=== PATIENT | female | born 1950 | race Caucasian/White ===

== ENCOUNTER → 2017-02-15 | Outpatient (CLI) | payer OTHER ==
[2016-02-17 13:09] VITALS: BP 127/72; PULSE 85
[~2017-02-15] MED LIST: ACET-1138 PO; CALC600T9 PO; CYAN100020 PO; FLUT0.15 NAE; FMR25 PO; HYDR25TA4 PO; INSU70IN2 SC; INSUINJ7 SC; METF-384 PO; OXYSR10 PO; PRAV20TA PO; PREG1CAP70 PO; PRVHFAIN INH; RXC5 PO; SERT50TA PO; SNK PO; TRAZ50TA35 PO; WARF5TAB90 PO; WARF7.5T PO
[2017-02-15 13:15] VITALS: BP 121/71; PULSE 78; TEMP 36.9; O2SAT 93
--- NOTE | 2017-02-15 15:24 | Radiation Oncology Follow-Up ---
Radiation Oncology Follow-Up Date of Visit Feb 15, 2017. Reason For Visit Annual follow-up Radiation Completion Date 07/21/15 Diagnosis (1) Intraductal carcinoma of left breast Status: Resolved Onset Date: 02/25/2015 Stage: 0 Permanent Comment: Abnormal left breast mammogram 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 Estrogen receptor positive and progesterone receptor positive Status post lumpectomy with sentinel lymph node biopsy stage [id number] 2014 Status post completion of radiation therapy 07/21/2015 received 6640 cGy Last Edited By: Jayleen Bates on Jul 25, 2015 17:54 History of Present Illness 67-year-old lady is referred to our Department after undergoing lumpectomy and sentinel node procedure for what ultimately was diagnosed as 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 In early summer of this year, she underwent a bilateral mammography. An area was seen in her left breast that on comparison with previous scan were not noted. These changes were fine pleomorphic calcifications. They were found in the upper outer quadrant. The patient had a repeat mammography for confirmation. She went on to a needle core biopsy, which did return DCIS. She finally went to an excision of the residual tumor with wire-guided localization. At that procedure, left sentinel nodes were sampled. The pathology dated returned DCIS that noted grade II nuclear grade with the solid and comedo changes. The tumor was felt to be 2.1 cm in maximal dimension. The margins of DCIS were negative. There was a closed margin, but negative. The patient's tumor did exhibit hormonal sensitivity. Final stage was Tis. The patient has done well from her healing and is now referred for postoperative breast-conserving radiation. The patient is also scheduled to see medical oncology later this week in view of her diagnosis and hormonal sensitivity. In talking with the patient, she does have a family history of breast cancer in her mother who was in her 80s when diagnosed and an aunt also in her 80s. The patient does have other medical problems, see below. These problems include insulin-dependent diabetes. She underwent CT simulation. It was felt that she would be treated best in the prone position. Interim History She's been doing well over this past year. She denies any changes to her breast. She has noted no masses or tenderness and no change of the axilla. She 's had no swelling of her arm. She is up-to-date on mammography. She had a mammogram 04/06/2016. The left breast showed post therapeutic changes from DCIS status post lumpectomy April 2015. Findings are probably benign. Short interval follow-up was recommended in 6 months. Right breast was negative , no evidence of malignancy. Normal interval follow-up is recommended in 12 months. Recheck mammography is scheduled for April 06. Allergies Coded Allergies: Esomeprazole (Verified Allergy, Severe, SOB, 03/08/16) Alendronate (Verified Allergy, Unknown, hives, 03/08/16) Home Medications Scheduled Acetaminophen (Tylenol Extra Strength), 1,000 MG PO Q8 Calcium Carbonate-Vitamin D (Calcium + D), 1 TAB PO BID Cyanocobalamin (Vitamin B12), 1 TAB PO QAM Fluticasone Propionate (Nasal) (Flonase Allergy Relief), 2 SPRAY SWETA QPM Hydrochlorothiazide (Hctz), 1 TAB PO QAM Insulin Isophan/Regular (Novolin 70/30), 30 UNITS SC QDB Insulin Isophan/Regular (Novolin 70/30), 28 UNITS SC QDD Insulin Regular (Novolin-R), 28 SC QDB Insulin Regular (Novolin-R), 50 UNITS SC QDL Insulin Regular (Novolin-R), 64 UNITS SC QDD Insulin Regular (Novolin-R), 8 UNITS SC DIRECTED Letrozole (Femara), 2.5 MG PO DAILY Metformin Hcl (Glucophage), 1,000 MG PO BID Oxycodone HCl (Oxycontin), 10 MG PO Q12 Pravastatin (Pravachol ), 20 MG PO HS Pregabalin (Lyrica), 150 MG PO BID Senna (Senna Lax), 17.2 MG PO HS Sertraline (Zoloft), 1 TAB PO QAM Trazodone Hcl (Trazodone), 50 MG PO HS Warfarin Sodium (Coumadin), 1 TAB PO DAILY Warfarin Sodium (Coumadin), 1 TAB PO DAILY Scheduled PRN Albuterol (Ventolin Hfa), 2 PUFFS INH QID PRN for SOB/Wheezing Oxycodone HCl (Oxycodone HCl), 5-10 MG PO Q4H PRN for Pain Review of Systems Gastrointestinal: Symptoms: WNL GI Comments: alternates between diarrhea and constipation Oral: Symptoms: No Problems Respiratory: Symptoms: WNL, SOB With Exertion Other Respiratory: " I have COPD " Urinary: Symptoms: WNL, Frequency Comments: nocturia 2 - 3 times Skin: Symptoms: No Problems Other Skin Symptoms: dryskin left breast per patient Breast: Right Upper Arm Measurement: 28.5 Right Mid Arm Measurement: 24.5 Right Wrist Measurement: 16.5 Left Upper Arm Measurement: 29.5 Left Mid Arm Measurement: 24.5 Left Wrist Measurement: 16.3 Arm Dominence: Right Patient Cosmetic Evaluation: Good Staff Cosmetic Evalaluation: Fair Physical Exam Vital Signs Date Time Temp Pulse Resp B/P (MAP) Pulse Ox O2 Delivery O2 Flow Rate FiO2 02/15/17 13:15 36.9 78 16 121/71 93 Pain: Side: Bilateral Patient Pain Scale: 0 - 10 Initial Pain Intensity: 0.0 Fatigue: None General Appearance: no apparent distress Eyes: normal inspection, EOMI ENT: normal ENT inspection, hearing grossly normal Neck: no adenopathy, thyroid normal Respiratory/Chest: lungs clear, no respiratory distress, no accessory muscle use Breast: Breast examination reveals well-healed incisions of the left breast. There are no masses or tenderness and no axillary adenopathy. There are no skin retractions or nipple changes. Using the Otego score cosmesis has an excellent outcome. The right breast showed no masses or tenderness and no axillary adenopathy. Cardiovascular: regular rate, rhythm, no gallop, no murmur Abdomen: non tender, soft Extremities: no pedal edema Neurologic/Psychiatric: no motor/sensory deficits, alert, normal mood/affect Skin: warm/dry Additional Studies Mammography as reviewed above. Assessment & Plan Plan: Continue with scheduled mammography. She'll have a mammogram of the left breast on April 06. She'll continue the annual mammography of the right breast. Continue follow-up with Dr. Buffy aCstro and her primary care physician. We asked her to return to our office in 1 year. She may call if she has any questions or concerns in the interim. Total Time In Follow-Up I spent 15 minutes speaking to the patient performing examination. I spent 15 minutes reviewing information and completeness note. Copy To Buffy Castro MD; Alfa Jaramillo M.D.
== END | disposition home or self-care (01) ==
LOC: C.ONC 12:57
PROVIDERS: ATTEND Physician Assistant Medical
DX: Z08 Encounter for follow-up examination after completed treatment for malignant neoplasm (principal); Z92.3 Personal history of irradiation; Z85.3 Personal history of malignant neoplasm of breast

== ENCOUNTER 2020-01-12 17:45 | Inpatient (IN) ==
[2020-01-12 18:26] LABS: Basophils # (auto) 0.04 K/uL (0-0.2); Basophils % (auto) 0.4 %; Eosinophils # (auto) 0.17 K/uL (0-0.5); Eosinophils % (auto) 1.6 %; Hematocrit (blood only) 40.8 % (37-47); Hemoglobin 13.6 g/dL (12.0-16.0); Immature Granulocytes # (auto) 0.03 K/uL (0.00-0.02); Immature Granulocytes % (auto) 0.3 %; Lymphocytes # (auto) 1.64 K/uL (1.2-3.4); Lymphocytes % (auto) 15.1 %; Mean Corpuscular Hemoglobin 30.3 pg (25-34); Mean Corpuscular Hgb Conc 33.3 g/dL (32-36); Mean Corpuscular Volume 90.9 fL (80-100); Mean Platelet Volume 11.5 fL (7.4-10.4); Monocytes # (auto) 0.79 K/uL (0.11-0.59); Monocytes % (auto) 7.3 %; Neutrophils # (auto) 8.18 K/uL (1.4-6.5); Neutrophils % (auto) 75.3 %; Platelet Count 259 K/uL (130-400); RDW Coefficient of Variation 13.4 % (11.5-14.5); RDW Standard Deviation 44.4 fL (36.4-46.3); Red Blood Count 4.49 M/uL (4.2-5.4); White Blood Count 10.85 K/uL (4.8-10.8)
[2020-01-12] MEDS ORDERED: ACETAMINOPHEN 1,000 MG/100 ML VIAL IV STA (18:32)
[2020-01-12 18:37] LABS: Albumin Level 3.4 gm/dl (3.4-5.0); Aspartate Aminotransferase 86 U/L (15-37); BUN Creatinine Ratio 15.9 (10-20); Blood Urea Nitrogen 16 mg/dl (7-18); Calcium 9.8 mg/dl (8.5-10.1); Carbon Dioxide 28 mmol/L (21-32); Chloride 98 mmol/L (98-107); Creatinine Clr Calc Pharmacy 55.7 ml/min; Est GFR (African American) 63.8; Glucose 134 mg/dl (70-99); Potassium 4.1 mmol/L (3.5-5.1); Sodium 135 mmol/L (136-145)
[2020-01-12 18:38] LABS: INR 1.6 (0.9-1.1); Prothrombin Time 16.7 Seconds (9.0-12.0)
[2020-01-12 18:42] LABS: Alanine Aminotransferase 69 U/L (12-78); Albumin Globulin Ratio 0.8 (0.9-2); Alkaline Phosphatase 94 U/L (45-117); Bilirubin,Total 0.6 mg/dl (0.2-1); Globulin 4.5 gm/dl (2.5-4.0); Total Protein 7.9 gm/dl (6.4-8.2); Troponin I < 0.015 ng/ml (0-0.045)
--- NOTE | 2020-01-12 18:48 | Emergency Department Note ---
Impression & Plan Fall, Brittany-prosthetic fracture around prosthetic knee, Fracture of tibia and fibula, Chest pain ED Provider Note Provider: Tyler Mei MD DATE OF SERVICE: 01/12/2020 CHIEF COMPLAINT: Fall, ankle pain HISTORY OF PRESENT ILLNESS: Patient is a 69-year-old female with a history of atrial fibrillation on Coumadin, COPD, diabetes, presented via ambulance today after a fall. Patient states that she had little chest pain or 1:00 and took a nitro. Chest pain lasted 30 minutes and resolved. Patient states this is not abnormal for her and is not exertional. Patient states this happens frequently and did not concern her. Patient does states that shortly after that her right leg and knee gave out she fell to the floor striking her right knee and left ankle on the floor. States she was on the floor for approximately half an hour to an hour. She denies any chest pain says the episode earlier. Denies striking her head. Denies neck pain. Patient reports fairly significant right posterior knee pain and pain of left ankle. Denies any new numbness in her lower extremities. Denies any bleeding. Denies chest pain or difficulty breathing now again. Patient states she is not worried about her heart at this time. REVIEW OF SYSTEMS: A total of 10 review of systems was obtained and negative except as stated above in the HPI. PAST MEDICAL HISTORY: As noted above MEDICATIONS: Reviewed and significantly include insulin, metformin, Coumadin SOCIAL HISTORY: Lives at home with . PHYSICAL EXAM: GENERAL: alert and oriented in no acute distress on stretcher Head: normocephalic and atraumatic EYES: No injection, discharge or icterus. PERRL NECK: Trachea midline. Supple. ENT: Mucous membranes pink and moist. LUNGS: Airway patent. No retractions. Breath sounds clear HEART: Regular rate and irregular rhythm. No chest wall tenderness ABDOMEN: Soft and non-tender, without guarding or rebound. 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 Patient has obvious right distal lower extremity deformity just proximal to the ankle with crepitus appreciated on palpation of the area. No open wound. Neuro intact in the bilateral feet. Tenderness of the right posterior knee predominantly in pain with extension. NEUROLOGICAL: No focal deficits. No aphasia. No facial droop or slurred speech. Normal strength and tone in the extremities. Sensation to gross touch normal. Ambulatory. EKG: Atrial fibrillation 94 bpm. No PVCs. No acute ST segment elevation is noted however some lateral T wave flattening/inversion. In comparison to March 082015 known atrial fibrillation and with lateral T wave flattening/inversions are new CONTINUOUS CARDIAC MONITORING: was ordered and showed a heart rate of 99 bpm in atrial fibrillation GCS 15. HOSPITAL COURSE: 1826 Patient was first seen and H&P performed. 1934 Patient reassessed and updated. Patient was updated with the findings. [address] Rondon of orthopedics [address] Jung of the hospitalist service. PROCEDURE: splint placement Indications for procedure: Left ankle fracture Description of the procedure: Short leg posterior with stirrups fiberglass splint was placed on the patient's left lower extremity. Neurovascular status was intact after placement of the splint. PATIENT CONDITION AFTER PROCEDURE: good Patient's laboratory studies and imaging reviewed. Differential includes Cardiac ischemia, aortic dissection, pulmonary embolism, pneumothorax, pneumonia, pericarditis, myocarditis, esophageal rupture, GERD, cholecystitis, pancreatitis, musculoskeletal, fracture, dislocation, compartment syndrome as well as other pathologies. IMPRESSION/MEDICAL DECISION MAKING: Patient presents after an episode of chest pain earlier that seems incidental to the primary reason for her visit the fall. In atrial fibrillation appears generally rate controlled. No evidence of heart failure. Initial troponin sent and the patient is not having active chest pain now. There is some lateral ST flattening noted on today's cardiogram but is been several years since a prior. At the patient requires admission given the lower extremity injuries this can be trended and monitored. Troponin here initially is negative. Nonspecific leukocytosis of 10.85. Blood pressures have been intermittently with systolics in the 90s and 100s here predominantly. Patient is asymptomatic. Atrial fibrillation rate in the 80s 90s and 100s as well. Do not believe she has suffered internal bleeding or is septic. Main complaint related the following is some right knee pain and significant pain and deformity to the left ankle. Obvious fracture here. X-rays of the ankle and the right knee were obtained. Prior right knee replacement by the [facility] several decades ago. Patient is difficulty extending the right leg and unable to walk on the left foot due to the fracture. Do not believe any additional imaging beyond this today or imaging of the head. X-rays of the left ankle show evidence of a bimalleolar fracture with some lateral displacement. The right knee x-ray shows evidence of distal femur stress fracture. Given these injuries affecting both lower extremities and her lack of ability ambulate with it as well as pain feel the patient requires admission. Left lower leg was splinted as above. Neurovascularly intact afterwards. Discussed with the hospitalist as well as orthopedics. Receives fentanyl for pain in addition to IV Tylenol. DIAGNOSIS: Fall, chest pain, left ankle fracture, right knee pain DISPOSITION: Hospitalist will evaluate Patient was agreeable with this plan. Past Med/Surg History Social History Feels Safe at Home: Yes Smoking Status: Former smoker Allergies Allergies Allergy/AdvReac Type Severity Reaction Status Date / Time esomeprazole Allergy Severe SOB Verified 01/12/20 21:16 alendronate sodium Allergy Unknown hives Verified 01/12/20 21:16 Home Meds Home Medications Medication Instructions Recorded Confirmed acetaminophen [Tylenol Extra 1,000 mg PO Q8H PRN 01/12/20 01/12/20 Strength] albuterol sulfate [Ventolin HFA] 2 puff INHALATION QID PRN 01/12/20 01/12/20 digoxin 125 mcg PO DAILY 01/12/20 01/12/20 duloxetine 30 mg PO DAILY 01/12/20 01/12/20 fluticasone propionate [Flonase 2 spray INTRANASAL DAILY 01/12/20 01/12/20 Allergy Relief] hydrochlorothiazide 25 mg PO DAILY 01/12/20 01/12/20 insulin aspart U-100 [Novolog 0 unit SUBCUT CONTINOUS 01/12/20 01/12/20 U-100 Insulin aspart] isosorbide mononitrate 30 mg PO DAILY 01/12/20 01/12/20 letrozole 2.5 mg PO DAILY 01/12/20 01/12/20 lisinopril 5 mg PO DAILY 01/12/20 01/12/20 metformin 1,000 mg PO BIDM 01/12/20 01/12/20 metoprolol succinate 25 mg PO QAM 01/12/20 01/12/20 metoprolol succinate 50 mg PO QAM 01/12/20 01/12/20 nitroglycerin [Nitrostat] 0.3 mg SUBLINGUAL .PRN/UD PRN 01/12/20 01/12/20 pravastatin 20 mg PO QPM 01/12/20 01/12/20 pregabalin 150 mg PO BID 01/12/20 01/12/20 semaglutide [Ozempic] 1 mg SUBCUT WK 01/12/20 01/12/20 sennosides 8.6 mg PO DAILY PRN 01/12/20 01/12/20 sertraline 50 mg PO DAILY 01/12/20 01/12/20 trazodone 50 mg PO HS 01/12/20 01/12/20 warfarin 5 mg PO QPM 01/12/20 01/12/20 Results & Data (ED) Vital Signs Vital Signs - 24 hr 01/12/20 17:58 01/12/20 18:00 01/12/20 18:02 Temperature 37.0 C Temperature Source Oral Pulse Rate 90 94 H 88 Pulse Rate from SpO2 Sensor 93 H 86 Respiratory Rate 18 15 17 Blood Pressure 95/70 L 112/67 Blood Pressure Mean 78 75 Pulse Oximetry 98 96 95 Oxygen Delivery Method Room Air Sepsis Recent Fever Within 48 Hours No Sepsis New/Unexplained Change in Mental Status No Sepsis Action Taken by Nursing No Action Required 01/12/20 18:20 01/12/20 18:30 01/12/20 18:31 Temperature Temperature Source Pulse Rate 98 H 96 H Pulse Rate from SpO2 Sensor 94 H 94 H Respiratory Rate 20 19 Blood Pressure 105/71 Blood Pressure Mean 89 Pulse Oximetry 98 96 97 Oxygen Delivery Method Room Air Sepsis Recent Fever Within 48 Hours Sepsis New/Unexplained Change in Mental Status Sepsis Action Taken by Nursing 01/12/20 18:32 01/12/20 19:00 01/12/20 19:01 Temperature Temperature Source Pulse Rate 102 H 98 H 95 H Pulse Rate from SpO2 Sensor 98 H 102 H 90 Respiratory Rate 21 16 15 Blood Pressure 105/76 Blood Pressure Mean 86 Pulse Oximetry 97 95 95 Oxygen Delivery Method Sepsis Recent Fever Within 48 Hours Sepsis New/Unexplained Change in Mental Status Sepsis Action Taken by Nursing 01/12/20 19:30 01/12/20 19:31 01/12/20 20:00 Temperature Temperature Source Pulse Rate 88 103 H 104 H Pulse Rate from SpO2 Sensor 83 101 H 103 H Respiratory Rate 15 22 16 Blood Pressure 93/67 L 85/62 L Blood Pressure Mean 74 63 Pulse Oximetry 95 95 95 Oxygen Delivery Method Sepsis Recent Fever Within 48 Hours Sepsis New/Unexplained Change in Mental Status Sepsis Action Taken by Nursing Laboratory Data Result diagrams: 01/12/20 17:20 01/12/20 17:20 Lab Results 01/12/20 01/12/20 01/12/20 Range/Units 17:20 17:20 17:20 WBC 10.85 H (4.8-10.8) K/uL RBC 4.49 (4.2-5.4) M/uL Hgb 13.6 (12.0-16.0) g/dL Hct 40.8 (37-47) % MCV 90.9 (80-100) fL MCH 30.3 (25-34) pg MCHC 33.3 (32-36) g/dL RDW Std Deviation 44.4 (36.4-46.3) fL RDW Coeff of Katrin 13.4 (11.5-14.5) % Plt Count 259 (130-400) K/uL MPV 11.5 H (7.4-10.4) fL Immature Gran % (Auto) 0.3 % Neut % (Auto) 75.3 % Lymph % (Auto) 15.1 % [place] % (Auto) 7.3 % Eos % (Auto) 1.6 % Baso % (Auto) 0.4 % Immature Gran # (Auto) 0.03 H (0.00-0.02) K/uL Neut # (Auto) 8.18 H (1.4-6.5) K/uL Lymph # (Auto) 1.64 (1.2-3.4) K/uL [place] # (Auto) 0.79 H (0.11-0.59) K/uL Eos # (Auto) 0.17 (0-0.5) K/uL Baso # (Auto) 0.04 (0-0.2) K/uL PT 16.7 H (9.0-12.0) Seconds INR 1.6 H (0.9-1.1) APTT (21.0-31.0) Seconds PTT Ratio Sodium 135 L (136-145) mmol/L Potassium 4.1 (3.5-5.1) mmol/L Chloride 98 (98-107) mmol/L Carbon Dioxide 28 (21-32) mmol/L Anion Gap 9.0 (3-11) BUN 16 (7-18) mg/dl Creatinine 1.03 (0.6-1.2) mg/dl Est Cr Clr Drug Dosing 55.7 ml/min Est GFR ( Amer) 63.8 Est GFR (Non-Af Amer) 55.0 BUN/Creatinine Ratio 15.9 (10-20) Glucose 134 H (70-99) mg/dl Lactate (0.4-2.0) mmol/L Calcium 9.8 (8.5-10.1) mg/dl Magnesium (1.8-2.4) mg/dl Total Bilirubin 0.6 (0.2-1) mg/dl AST 86 H (15-37) U/L ALT 69 (12-78) U/L Alkaline Phosphatase 94 (45-117) U/L Total Creatine Kinase (26-192) U/L Troponin I < 0.015 (0-0.045) ng/ml Total Protein 7.9 (6.4-8.2) gm/dl Albumin 3.4 (3.4-5.0) gm/dl Globulin 4.5 H (2.5-4.0) gm/dl Albumin/Globulin Ratio 0.8 L (0.9-2) Lipase (73-393) U/L TSH (0.300-4.500) uIu/ml 01/12/20 01/12/20 01/12/20 Range/Units 17:20 20:39 20:39 WBC (4.8-10.8) K/uL RBC (4.2-5.4) M/uL Hgb (12.0-16.0) g/dL Hct (37-47) % MCV (80-100) fL MCH (25-34) pg MCHC (32-36) g/dL RDW Std Deviation (36.4-46.3) fL RDW Coeff of Katrin (11.5-14.5) % Plt Count (130-400) K/uL MPV (7.4-10.4) fL Immature Gran % (Auto) % Neut % (Auto) % Lymph % (Auto) % [place] % (Auto) % Eos % (Auto) % Baso % (Auto) % Immature Gran # (Auto) (0.00-0.02) K/uL Neut # (Auto) (1.4-6.5) K/uL Lymph # (Auto) (1.2-3.4) K/uL [place] # (Auto) (0.11-0.59) K/uL Eos # (Auto) (0-0.5) K/uL Baso # (Auto) (0-0.2) K/uL PT (9.0-12.0) Seconds INR (0.9-1.1) APTT 30.1 (21.0-31.0) Seconds PTT Ratio 1.1 Sodium (136-145) mmol/L Potassium (3.5-5.1) mmol/L Chloride (98-107) mmol/L Carbon Dioxide (21-32) mmol/L Anion Gap (3-11) BUN (7-18) mg/dl Creatinine (0.6-1.2) mg/dl Est Cr Clr Drug Dosing ml/min Est GFR ( Amer) Est GFR (Non-Af Amer) BUN/Creatinine Ratio (10-20) Glucose (70-99) mg/dl Lactate (0.4-2.0) mmol/L Calcium (8.5-10.1) mg/dl Magnesium 1.6 L (1.8-2.4) mg/dl Total Bilirubin (0.2-1) mg/dl AST (15-37) U/L ALT (12-78) U/L Alkaline Phosphatase (45-117) U/L Total Creatine Kinase 42 (26-192) U/L Troponin I < 0.015 (0-0.045) ng/ml Total Protein (6.4-8.2) gm/dl Albumin (3.4-5.0) gm/dl Globulin (2.5-4.0) gm/dl Albumin/Globulin Ratio (0.9-2) Lipase 228 (73-393) U/L TSH 3.480 (0.300-4.500) uIu/ml 01/12/20 Range/Units 20:44 WBC (4.8-10.8) K/uL RBC (4.2-5.4) M/uL Hgb (12.0-16.0) g/dL Hct (37-47) % MCV (80-100) fL MCH (25-34) pg MCHC (32-36) g/dL RDW Std Deviation (36.4-46.3) fL RDW Coeff of Katrin (11.5-14.5) % Plt Count (130-400) K/uL MPV (7.4-10.4) fL Immature Gran % (Auto) % Neut % (Auto) % Lymph % (Auto) % [place] % (Auto) % Eos % (Auto) % Baso % (Auto) % Immature Gran # (Auto) (0.00-0.02) K/uL Neut # (Auto) (1.4-6.5) K/uL Lymph # (Auto) (1.2-3.4) K/uL [place] # (Auto) (0.11-0.59) K/uL Eos # (Auto) (0-0.5) K/uL Baso # (Auto) (0-0.2) K/uL PT (9.0-12.0) Seconds INR (0.9-1.1) APTT (21.0-31.0) Seconds PTT Ratio Sodium (136-145) mmol/L Potassium (3.5-5.1) mmol/L Chloride (98-107) mmol/L Carbon Dioxide (21-32) mmol/L Anion Gap (3-11) BUN (7-18) mg/dl Creatinine (0.6-1.2) mg/dl Est Cr Clr Drug Dosing ml/min Est GFR ( Amer) Est GFR (Non-Af Amer) BUN/Creatinine Ratio (10-20) Glucose (70-99) mg/dl Lactate 3.0 H* (0.4-2.0) mmol/L Calcium (8.5-10.1) mg/dl Magnesium (1.8-2.4) mg/dl Total Bilirubin (0.2-1) mg/dl AST (15-37) U/L ALT (12-78) U/L Alkaline Phosphatase (45-117) U/L Total Creatine Kinase (26-192) U/L Troponin I (0-0.045) ng/ml Total Protein (6.4-8.2) gm/dl Albumin (3.4-5.0) gm/dl Globulin (2.5-4.0) gm/dl Albumin/Globulin Ratio (0.9-2) Lipase (73-393) U/L TSH (0.300-4.500) uIu/ml Administered Medications Discontinued Medications Fentanyl Citrate (Fentanyl Citrate) 25 mcg IV NOW STA Stop: 01/12/20 19:43 Last Admin: 01/12/20 19:51 Dose: 25 mcg Documented by: [id number] Acetaminophen (Ofirmev) 1,000 mg in 100 mls @ 400 mls/hr IV NOW STA Stop: 01/12/20 18:46 Last Infusion: 01/12/20 18:56 Dose: 0 mls/hr Documented by: [id number] Admin: 01/12/20 18:36 Dose: 400 mls/hr Documented by: [id number] Sodium Chloride (Nss) 500 mls @ 500 mls/hr IV .Q1H ONE Stop: 01/12/20 20:58 Last Admin: 01/12/20 20:18 Dose: 500 mls/hr Documented by: [id number] Discharge Plan Visit Data Chief Complaint: Fall Stated Complaint: FALL, ANKLE PAIN ED Provider: Tyler Mei Discharge Problem: Fall, Brittany-prosthetic fracture around prosthetic knee, Fracture of tibia and fibula, Chest pain Patient Disposition: Admitted As Inpatient Forms Stand Alone Forms: [facility] Prescriptions Prescriptions: No Action pregabalin 150 mg capsule 150 mg PO BID RF: 0 letrozole 2.5 mg tablet 2.5 mg PO DAILY RF: 0 pravastatin 20 mg tablet 20 mg PO QPM RF: 0 insulin aspart U-100 [Novolog U-100 Insulin aspart] 100 unit/mL solution 0 unit subcut CONTINOUS RF: 0 digoxin 125 mcg (0.125 mg) tablet 125 mcg PO DAILY RF: 0 hydrochlorothiazide 25 mg tablet 25 mg PO DAILY RF: 0 fluticasone propionate [Flonase Allergy Relief] 50 mcg/actuation Cascade,Suspension 2 spray INTRANASAL DAILY RF: 0 isosorbide mononitrate 30 mg tablet extended release 24 hr 30 mg PO DAILY RF: 0 metformin 1,000 mg tablet 1,000 mg PO BIDM RF: 0 Ozempic 1 mg/dose (2 mg/1.5 mL) Pen Injector 1 mg SUBCUT WK RF: 0 metoprolol succinate 50 mg tablet extended release 24 hr 50 mg PO QAM RF: 0 metoprolol succinate 25 mg tablet extended release 24 hr 25 mg PO QAM RF: 0 trazodone 50 mg Tablet 50 mg PO HS RF: 0 warfarin 5 mg tablet 5 mg PO QPM RF: 0 duloxetine 30 mg capsule,delayed release(DR/EC) 30 mg PO DAILY RF: 0 nitroglycerin [Nitrostat] 0.3 mg Tablet, Sublingual 0.3 mg sublingual .PRN/UD PRN (Reason: Chest Pain) RF: 0 albuterol sulfate [Ventolin HFA] 90 mcg/actuation Hfa Aerosol Inhaler 2 puff INHALATION QID PRN (Reason: Shortness Of Breath Or Wheezing) RF: 0 sennosides 8.6 mg Tablet 8.6 mg PO DAILY PRN (Reason: Constipation) RF: 0 lisinopril 5 mg Tablet 5 mg PO DAILY RF: 0 sertraline 50 mg Tablet 50 mg PO DAILY RF: 0 acetaminophen [Tylenol Extra Strength] 500 mg Tablet 1,000 mg PO Q8H PRN (Reason: Pain) RF: 0 Referrals Referrals: Alfa Jaramillo MD [Primary Care Provider] - Discharge Problem: Fall Qualifiers: Encounter type: initial encounter Qualified Code(s): W19.XXXA - Unspecified fall, initial encounter Brittany-prosthetic fracture around prosthetic knee Qualifiers: Encounter type: initial encounter Laterality: right Qualified Code(s): M97.11XA - Periprosthetic fracture around internal prosthetic right knee joint, initial encounter Fracture of tibia and fibula Qualifiers: Encounter type: initial encounter Fracture type: closed Laterality: left Qualified Code(s): S82.202A - Unspecified fracture of shaft of left tibia, initial encounter for closed fracture Chest pain Qualifiers: Chest pain type: unspecified Qualified Code(s): R07.9 - Chest pain, unspecified
--- NOTE | 2020-01-12 19:25 | XRay Report ---
XR ankle LT min 3V routine, XR tibia fibula LT 2V HISTORY: 69 years-old Female fall acute left ankle/tibia and fibula pain status post fall COMPARISON: None TECHNIQUE: 3 views of the left ankle, 2 views of the left tibia and fibula FINDINGS: ANKLE: There is an acute comminuted fracture of the distal metadiaphyseal fibula with a few degrees of apex medial angulation. Fracture fragments are displaced several millimeters medially and posteriorly. Add itionally, there is an acute comminuted and displaced medial malleolar fracture with the proximal tib ia displaced 7 mm in relation to the distal malleolus fracture fragment. There is pathologic widening of the distal tibiofibular syndesmosis with widening of the medial aspect of the tibiotalar joint. M oderate soft tissue swelling. Demineralized appearance the bones with multifocal osteoarthritis. Gypsy rial calcifications. TIBIA/FIBULA: Distal fractures as above. The proximal mid portions of the tibia and fibula are intact. IMPRESSION: 1. Acute, comminuted and displaced fractures of the distal tibia and fibula as above. 2. Widening of the distal tibial fibular syndesmosis suggests concomitant ligamentous injury. 3. No acute fracture of the proximal or mid tibia or fibula. ACT 112: Negative or not required by law. The above report was generated using voice recognition software. It may contain grammatical, syntax o r spelling errors. Electronically signed by: Chuy Elizabeth M.D. 01/12/2020 7:24 PM
--- NOTE | 2020-01-12 19:27 | XRay Report ---
XR knee RT 4V HISTORY: 69 years-old Female fall acute right knee pain status post fall COMPARISON: Right knee radiographs 05/11/2016 TECHNIQUE: 4 views of the right knee FINDINGS: Right knee total joint arthroplasty and patella resurfacing changes. Dystrophic calcifications projec t over the intercondylar distribution and suprapatellar regions. Arterial calcifications. Mild circum ferential soft tissue swelling. There is a subtle acute nondisplaced periprosthetic fracture involvin g the lateral distal metadiaphyseal aspect of the femur with fracture extending proximally approximat leroy 10 cm from the lateral femoral condyle. IMPRESSION: Right knee total joint arthroplasty with an acute periprosthetic fracture of the distal f emur as above. ACT 112: Negative or not required by law. The above report was generated using voice recognition software. It may contain grammatical, syntax o r spelling errors. Electronically signed by: Chuy Elizabeth M.D. 01/12/2020 7:26 PM
--- NOTE | 2020-01-12 19:35 | XRay Report ---
XR chest 1V portable HISTORY: 69 years-old Female cp acute chest pain status post fall COMPARISON: Chest radiograph 6 03/08/2016 TECHNIQUE: Portable AP view of the chest FINDINGS: Cardiac silhouette is moderately enlarged. Dense mitral annular calcifications. Calcified plaque of t he thoracic aortic arch and tracheobronchial tree. No pneumothorax, pleural effusion, airspace consol idation or overt pulmonary edema. Bones of the chest appear grossly intact. Degenerative changes of t he shoulders and spine. Extensive cervical spinal fusion hardware. IMPRESSION: Cardiomegaly without acute process. ACT 112: Negative or not required by law. The above report was generated using voice recognition software. It may contain grammatical, syntax o r spelling errors. Electronically signed by: Chuy Elizabeth M.D. 01/12/2020 7:34 PM
[2020-01-12] MEDS ORDERED: fentaNYL citrate 100 MCG/2 ML VIAL IV STA (19:42)
[2020-01-12] MEDS ORDERED: SODIUM CHLORIDE 0.9% 500 ML IV ONE (19:59)
--- NOTE | 2020-01-12 20:48 | History & Physical Report ---
Date of Service January 12, 2020 Assessment & Plan (1) Chest discomfort: Likely from A. fib, mild heart rate elevation secondary to hypovolemia, mild clinical dehydration Recurrent LE/DVT INR subtherapeutic ro ACS given chest discomfort relieved with nitroglycerin description hx CAD as per records L ankle fracture sp status post closed reduction at the ER Right knee/periprosthetic fracture HTN, BP on the lower side hyperlipidemia on statin Rx COPD, stable breast cancer left status post surgery, radiation currently on Femara Rx DM 2 on insulin pump, BSG is currently controlled, suboptimal control on the basis of hemoglobin A1c of 13.07 July 2019 past tobacco abuse PCU IVF Extra digoxin for rate control now given low BP Decrease maintenance beta-adis dose until blood pressure improved. Hold home diuretics for now Follow troponin TTE, Cardiology consult RE transient chest pain, preop eval IV heparin for thromboembolic prophylaxis given history of recurrent DVT while Coumadin on hold while INR subtherapeutic Orthopedics consult RE left ankle fracture, right knee/periprosthetic fracture (ER provider already in touch with Dr. Rondon.) Final medical evaluation pending Cardio input. Pharmacy glycemic control consult, update hemoglobin A1c DVT prophylaxis. IV heparin Full code Case discussed with Dr. Rondon who is in agreement with plan of care. Text document was generated using [employer] voice recognition software. It may contain grammatical or spelling errors. Kindly contact undersigned for clarification of any documentation item in question. History of Present Illness , Chief Complaint: Fall, left ankle pain Primary Care Provider: Alfa Jaramillo MD History obtained from patient and records. Medical history significant for CAD as per records, A. fib/recurrent LE DVT on Coumadin, hypertension, hyperlipidemia, COPD, breast cancer status post surgery currently on Femara Rx, DM 2 on insulin pump, past tobacco abuse. Last confinement 2015 under Orthopedics service for elective right total knee arthroplasty. Patient had just finished washing dishes this afternoon when she experienced fluttering discomfort on her chest resolved with nitroglycerin intake. No unusual shortness of breath. Last attack was about last month. Not feeling well the last few days, appetite not too good. Denies cough, muscle aches, flulike symptoms, diarrhea, dysuria, known sick contacts. Patient went out of the house to feed some chickens. She felt her right knee gave out causing her to fall down. Patient experienced achy right knee and left ankle pain. Unable to get up. No chest pain, S OB, head trauma, LOC. At the ER, closed reduction done on left distal tibia-fibula/ankle bony injury. Patient currently comfortable. Medical History as above December 2018 Lexiscan nuclear stress test possible small area of reversible ischemia involving the left lateral wall. 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, lives with Baseline Functionality : Still able to do housework at home without rest/exertional chest pain, S OB prior to injury Allergies Allergy/AdvReac Type Severity Reaction Status Date / Time esomeprazole Allergy Severe SOB Verified 01/12/20 21:16 alendronate sodium Allergy Unknown hives Verified 01/12/20 21:16 Home Medications Home Medications Medication Instructions Recorded Confirmed Type acetaminophen [Tylenol Extra 1,000 mg PO Q8H PRN 01/12/20 01/12/20 History Strength] albuterol sulfate [Ventolin HFA] 2 puff INHALATION QID PRN 01/12/20 01/12/20 History digoxin 125 mcg PO DAILY 01/12/20 01/12/20 History duloxetine 30 mg PO DAILY 01/12/20 01/12/20 History fluticasone propionate [Flonase 2 spray INTRANASAL DAILY 01/12/20 01/12/20 History Allergy Relief] hydrochlorothiazide 25 mg PO DAILY 01/12/20 01/12/20 History insulin aspart U-100 [Novolog 0 unit SUBCUT CONTINOUS 01/12/20 01/12/20 History U-100 Insulin aspart] isosorbide mononitrate 30 mg PO DAILY 01/12/20 01/12/20 History letrozole 2.5 mg PO DAILY 01/12/20 01/12/20 History lisinopril 5 mg PO DAILY 01/12/20 01/12/20 History metformin 1,000 mg PO BIDM 01/12/20 01/12/20 History metoprolol succinate 25 mg PO QAM 01/12/20 01/12/20 History metoprolol succinate 50 mg PO QAM 01/12/20 01/12/20 History nitroglycerin [Nitrostat] 0.3 mg SUBLINGUAL .PRN/UD PRN 01/12/20 01/12/20 History pravastatin 20 mg PO QPM 01/12/20 01/12/20 History pregabalin 150 mg PO BID 01/12/20 01/12/20 History semaglutide [Ozempic] 1 mg SUBCUT WK 01/12/20 01/12/20 History sennosides 8.6 mg PO DAILY PRN 01/12/20 01/12/20 History sertraline 50 mg PO DAILY 01/12/20 01/12/20 History trazodone 50 mg PO HS 01/12/20 01/12/20 History warfarin 5 mg PO QPM 01/12/20 01/12/20 History Past Med/Surg History Social History Preferred Language: Kyrgyz Communication Ability: Effective 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 Beliefs That Will Affect Care: None Current Living Situation: Family Other Information That Helps Us Care for You: No Feels Safe at Home: Yes Safety Concerns: Feels Safe At This Time Smoking Status: Unknown if ever smoked Hx Alcohol Use: No Hx Substance Use: No Review of Systems Review of Systems: As per HPI, all 10 systems reviewed, all other ROS negative Physical Exam Physical Exam: GENERAL: Slightly uncomfortable, pleasant, obese, no respiratory distress SKIN: Normal color, warm HEENT: [place] palpebral conjunctivae, no ptosis, dry buccal mucosa NECK : Supple, short neck, no tenderness CHEST : Decreased breath sounds , no tenderness HEART : Irregular , no obvious murmurs ABDOMEN: Some distention, nontender EXTREMITIES : Tender right knee swelling, cast over left lower extremity. NEUROLOGIC : Coherent, no facial asymmetry, no other gross focality Results & Data Results & Data ([facility]) Vital Signs (Past 12 Hours) Vital Signs Temp Pulse Resp BP Pulse Ox 01/12/20 20:00 104 H 16 85/62 L 95 01/12/20 19:31 103 H 22 95 01/12/20 19:30 88 15 93/67 L 95 01/12/20 19:01 95 H 15 95 01/12/20 19:00 98 H 16 105/76 95 01/12/20 18:32 102 H 21 97 01/12/20 18:31 96 H 19 105/71 97 01/12/20 18:30 98 H 20 96 01/12/20 18:20 98 01/12/20 18:02 88 17 95 01/12/20 18:00 94 H 15 112/67 96 01/12/20 17:58 37.0 C 90 18 95/70 L 98 Laboratory Results Laboratory Results WBC 10.85 K/uL (4.8-10.8) H 01/12/20 17:20 RBC 4.49 M/uL (4.2-5.4) 01/12/20 17:20 Hgb 13.6 g/dL (12.0-16.0) 01/12/20 17:20 Hct 40.8 % (37-47) 01/12/20 17:20 MCV 90.9 fL (80-100) 01/12/20 17:20 MCH 30.3 pg (25-34) 01/12/20 17:20 MCHC 33.3 g/dL (32-36) 01/12/20 17:20 RDW Std Deviation 44.4 fL (36.4-46.3) 01/12/20 17:20 RDW Coeff of Katrin 13.4 % (11.5-14.5) 01/12/20 17:20 Plt Count 259 K/uL (130-400) 01/12/20 17:20 MPV 11.5 fL (7.4-10.4) H 01/12/20 17:20 Immature Gran % (Auto) 0.3 % 01/12/20 17:20 Neut % (Auto) 75.3 % 01/12/20 17:20 Lymph % (Auto) 15.1 % 01/12/20 17:20 Harlan % (Auto) 7.3 % 01/12/20 17:20 Eos % (Auto) 1.6 % 01/12/20 17:20 Baso % (Auto) 0.4 % 01/12/20 17:20 Immature Gran # (Auto) 0.03 K/uL (0.00-0.02) H 01/12/20 17:20 Neut # (Auto) 8.18 K/uL (1.4-6.5) H 01/12/20 17:20 Lymph # (Auto) 1.64 K/uL (1.2-3.4) 01/12/20 17:20 Harlan # (Auto) 0.79 K/uL (0.11-0.59) H 01/12/20 17:20 Eos # (Auto) 0.17 K/uL (0-0.5) 01/12/20 17:20 Baso # (Auto) 0.04 K/uL (0-0.2) 01/12/20 17:20 PT 16.7 Seconds (9.0-12.0) H 01/12/20 17:20 INR 1.6 (0.9-1.1) H 01/12/20 17:20 Sodium 135 mmol/L (136-145) L 01/12/20 17:20 Potassium 4.1 mmol/L (3.5-5.1) 01/12/20 17:20 Chloride 98 mmol/L (98-107) 01/12/20 17:20 Carbon Dioxide 28 mmol/L (21-32) 01/12/20 17:20 Anion Gap 9.0 (3-11) 01/12/20 17:20 BUN 16 mg/dl (7-18) 01/12/20 17:20 Creatinine 1.03 mg/dl (0.6-1.2) 01/12/20 17:20 Est Cr Clr Drug Dosing 55.7 ml/min 01/12/20 17:20 Est GFR ( Amer) 63.8 01/12/20 17:20 Est GFR (Non-Af Amer) 55.0 01/12/20 17:20 BUN/Creatinine Ratio 15.9 (10-20) 01/12/20 17:20 Glucose 134 mg/dl (70-99) H 01/12/20 17:20 Calcium 9.8 mg/dl (8.5-10.1) 01/12/20 17:20 Total Bilirubin 0.6 mg/dl (0.2-1) 01/12/20 17:20 AST 86 U/L (15-37) H 01/12/20 17:20 ALT 69 U/L (12-78) 01/12/20 17:20 Alkaline Phosphatase 94 U/L (45-117) 01/12/20 17:20 Total Creatine Kinase 42 U/L (26-192) 01/12/20 17:20 Troponin I < 0.015 ng/ml (0-0.045) 01/12/20 17:20 Total Protein 7.9 gm/dl (6.4-8.2) 01/12/20 17:20 Albumin 3.4 gm/dl (3.4-5.0) 01/12/20 17:20 Globulin 4.5 gm/dl (2.5-4.0) H 01/12/20 17:20 Albumin/Globulin Ratio 0.8 (0.9-2) L 01/12/20 17:20 Diagnostic Findings Left tibia-fibula x-ray: 1. Acute, comminuted and displaced fractures of the distal tibia and fibula as above. 2. Widening of the distal tibial fibular syndesmosis suggests concomitant ligamentous injury. 3. No acute fracture of the proximal or mid tibia or fibula. L ankle x-ray: 1. Acute, comminuted and displaced fractures of the distal tibia and fibula as above. 2. Widening of the distal tibial fibular syndesmosis suggests concomitant ligamentous injury. 3. No acute fracture of the proximal or mid tibia or fibula. Left ankle x-ray: (Post reduction study) Status post reduction and casting of the acute fractures of the distal tibia and fibula. Right knee x-ray: Right knee total joint arthroplasty with an acute periprosthetic fracture of the distal femur as above. Chest x-ray : Cardiomegaly without acute process. EKG as per my interpretation : rate 95, A. fib, normal axis, T wave abnormalities lateral leads
--- NOTE | 2020-01-12 20:49 | XRay Report ---
XR ankle LT 2V HISTORY: 69 years-old Female post splint acute fracture left ankle COMPARISON: Left ankle/tibia and fibula radiographs of same day TECHNIQUE: 2 views of the left ankle were obtained status post reduction and casting FINDINGS: Fine bony detail is obscured secondary to overlying casting material. There is similar alignment of t he acute distal tibial fracture which again demonstrate comminution and displacement as previously de scribed. The distal fibular fracture demonstrates mildly improved alignment. IMPRESSION: Status post reduction and casting of the acute fractures of the distal tibia and fibula. ACT 112: Negative or not required by law. The above report was generated using voice recognition software. It may contain grammatical, syntax o r spelling errors. Electronically signed by: Chuy Elizabeth M.D. 01/12/2020 8:48 PM
[2020-01-12 21:05] LABS: Partial Thromboplastin Ratio 1.1; Partial Thromboplastin Time 30.1 Seconds (21.0-31.0)
[2020-01-12 21:23] LABS: Lipase 228 U/L (73-393); Magnesium 1.6 mg/dl (1.8-2.4); Troponin I < 0.015 ng/ml (0-0.045)
[2020-01-12] MEDS ORDERED: LACTATED RINGER'S 1,000 ML IV ONE (21:27)
[2020-01-12] MEDS ORDERED: DIGOXIN 250 MCG in SYRINGE 9 ML IV STA (21:43)
[2020-01-12] MEDS ORDERED: TRAMADOL HCL 50 MG TABLET PO PRN (22:30)
[2020-01-12] MEDS ORDERED: PROMETHAZINE HCL 12.5 MG in SODIUM CHLORIDE 0.9% 50 ML IV PRN (22:30)
[2020-01-12] MEDS ORDERED: PHARMACY GLYCEMIC MGMT CONSULT PRN (22:35)
[2020-01-12] MEDS ORDERED: Heparin IV Standard *NO* Bolus IV SCH (22:36)
[2020-01-12] MEDS: HEPARIN SODIUM/DEXTROSE 25,000 UNITS/500 ML BAG IV SCH (23:02)
[2020-01-12] MEDS: TRAZODONE HCL 50 MG TAB PO SCH (23:05)
[2020-01-12] MEDS: PRAVASTATIN SOD 20 MG TAB PO SCH (23:06)
[2020-01-12] MEDS: MAGNESIUM SULFATE / D5W 1 GM/100 ML BAG IV SCH (23:06)
[2020-01-12] MEDS: PREGABALIN 150 MG CAP PO SCH (23:10)
[2020-01-13] MEDS: MAGNESIUM SULFATE / D5W 1 GM/100 ML BAG IV SCH (00:27)
[2020-01-13] MEDS: NORMOSOL-R 1,000 ML IV SCH ×3 (01:02→13:31)
[2020-01-13] MEDS ORDERED: GLUCAGON FOR INJ 1 MG VIAL SQ PRN (01:15)
[2020-01-13] MEDS ORDERED: CARBOHYDRATES FOR HYPOGLYCEMIA PO PRN (01:15)
[2020-01-13] MEDS ORDERED: DEXTROSE 50% 50 ML SYRINGE IV PRN (01:15)
[2020-01-13] MEDS ORDERED: INSULIN ASPART 100 UNITS/ML VIAL SC PRN (01:15)
[2020-01-13] MEDS ORDERED: GLUCOSE 10 TABS/TUBE PO PRN (01:15)
[2020-01-13] MEDS ORDERED: GLUCOSE 40% GEL 15 GM TUBE PO PRN (01:15)
[2020-01-13 05:43] LABS: Basophils # (auto) 0.03 K/uL (0-0.2); Basophils % (auto) 0.3 %; Eosinophils # (auto) 0.11 K/uL (0-0.5); Eosinophils % (auto) 1.1 %; Hematocrit (blood only) 35.4 % (37-47); Hemoglobin 11.9 g/dL (12.0-16.0); Immature Granulocytes # (auto) 0.03 K/uL (0.00-0.02); Immature Granulocytes % (auto) 0.3 %; Lymphocytes % (auto) 18.3 %; Mean Corpuscular Hemoglobin 29.9 pg (25-34); Mean Corpuscular Hgb Conc 33.6 g/dL (32-36); Mean Corpuscular Volume 88.9 fL (80-100); Mean Platelet Volume 10.7 fL (7.4-10.4); Monocytes # (auto) 0.68 K/uL (0.11-0.59); Monocytes % (auto) 6.6 %; Neutrophils # (auto) 7.61 K/uL (1.4-6.5); Neutrophils % (auto) 73.4 %; Platelet Count 214 K/uL (130-400); RDW Coefficient of Variation 13.6 % (11.5-14.5); RDW Standard Deviation 44.3 fL (36.4-46.3); Red Blood Count 3.98 M/uL (4.2-5.4); White Blood Count 10.36 K/uL (4.8-10.8)
[2020-01-13 06:09] LABS: BUN Creatinine Ratio 18.6 (10-20); Blood Urea Nitrogen 19 mg/dl (7-18); Carbon Dioxide 31 mmol/L (21-32); Chloride 100 mmol/L (98-107); Creatinine Clr Calc Pharmacy 55.4 ml/min; Est GFR (African American) 64.1; Est GFR (Non-African American) 55.3; Glucose 132 mg/dl (70-99); INR 1.4 (0.9-1.1); Magnesium 2.2 mg/dl (1.8-2.4); Partial Thromboplastin Ratio 1.6; Potassium 4.5 mmol/L (3.5-5.1); Prothrombin Time 14.4 Seconds (9.0-12.0); Sodium 136 mmol/L (136-145)
[2020-01-13 06:10] LABS: Estimated Average Glucose 341 mg/dl; Hemoglobin A1C 13.5 % (4.5-5.6)
[2020-01-13 06:10] LABS: Partial Thromboplastin Time 45.8 Seconds (21.0-31.0)
[2020-01-13 06:13] LABS: Troponin I < 0.015 ng/ml (0-0.045)
--- NOTE | 2020-01-13 06:38 | Electrocardiogram Report ---
Test Reason : Blood Pressure : / mmHG Vent. Rate : 094 BPM Atrial Rate : 416 BPM P-R Int : 000 ms QRS Dur : 082 ms QT Int : 390 ms P-R-T Axes : 000 006 -36 degrees QTc Int : 487 ms Atrial fibrillation Nonspecific ST and T wave abnormality Abnormal ECG When compared with ECG of 08-MAR-2016 12:25, Atrial fibrillation has replaced Sinus rhythm Non-specific change in ST segment in Lateral leads Nonspecific T wave abnormality now evident in Lateral leads Confirmed by Omar Meyers ([id number]) on 01/13/2020 6:38:40 AM Referred By: REFERRED SELF Confirmed By:Omar Meyers
--- NOTE | 2020-01-13 07:15 | CT Scan Report ---
CT knee RT wo con CT DOSE: 167.15 mGy.cm CLINICAL HISTORY: Knee pain status post trauma. Suspected periprosthetic fracture. TECHNIQUE: Helical images were acquired in the transverse plane. Sagittal coronal reformatted images were acquired. A dose lowering technique was utilized adhering to the principles of ALARA. COMPARISON STUDY: X-ray study dated 01/12/2020 FINDINGS: There is a nondisplaced mildly comminuted longitudinally oriented hairline fracture of the distal femoral metaphysis extending to the level of the femoral prosthesis. No proximal tibial fractu res are visualized. No proximal fibular fractures are visualized. Incidental note is made of moderate vascular calcification. The superior extent of the fractures not included on this CT scan of the kne e. There is artifact from the patient's right knee prosthesis. IMPRESSION: 1. Mildly comminuted nondisplaced periprosthetic fracture of the distal femoral metaphysis. 2. No fractures of the proximal tibia or fibula are visualized ACT 112: Negative or not required by law. Electronically signed by: Srinath Bianchi M.D. 01/13/2020 7:14 AM
[2020-01-13] MEDS: PREGABALIN 150 MG CAP PO SCH ×2 (08:18→20:15)
[2020-01-13] MEDS: ISOSORBIDE MONO EXTENDED REL 30 MG TABCR PO SCH (08:18)
[2020-01-13] MEDS: LETROZOLE 2.5 MG TAB PO SCH (08:18)
[2020-01-13] MEDS: METOPROLOL SUCC 25MG EXT REL TAB PO SCH (08:18)
[2020-01-13] MEDS: FLUTICASONE PROPIONATE NA SPR 16 GM BTL SCH (08:19)
[2020-01-13] MEDS: NovoLOG INSULIN PUMP SCH ×2 (08:19→12:01)
--- NOTE | 2020-01-13 10:02 | Cardiology Consultation ---
Date of Consultation January 13, 2020 Assessment & Plan (1) Palpitations: The patient denies experiencing any chest pain recently and clearly states that she took the nitro for feeling her heart racing. There are no new wall motion abnormalities on echocardiogram. Her EKG is unchanged. She has not had any chest pain in quite some time and cannot remember the last time she took a nitroglycerin. She had a nuclear stress test in December 2018 which her health tech read as normal. I do not see any component of active coronary ischemia at this time. (2) Preop cardiovascular exam: The patient was counseled that given her comorbidities I would place her as a moderate risk for any adverse perioperative cardiovascular event with her wrist being approximately less than 5%. She was further counseled that no further cardiac testing or intervention would further lower that risk. She states that she understands, she is accepting of that risk and wishes to proceed with any surgery that may be deemed necessary by our orthopedic colleagues. No need to delay surgical intervention from a cardiac standpoint. (3) Microvascular angina: Chronic, stable Continue metoprolol and Imdur as an inpatient (4) Chronic a-fib: Relatively well rate controlled now. Would suspect rates to may be running a little high given the ongoing pain. Her INR was subtherapeutic and obviously her Coumadin has been held. She has been started on a heparin drip which obviously may be discontinued for surgery. Her current PTT is a little low and protocol recommends re-bolusing, however, given the possibility of going to the OR today I have instructed nursing not to give the bolus at this time. We will continue to follow normal anticoagulation protocol after surgery. History of Present Illness Reason for Consultation: Chest pain Requesting Physician: Dr. Waite Attending Physician: Mack Godinez MD History of Present Illness It was my pleasure to see Mrs. Mobley in consultation today January 13, 2020. She is a very pleasant 70-year-old woman who normally follows with Dr. Arizmendi of our cardiology practice. She presented to [facility] on 01/12/2020 after a mechanical fall at home. The patient states that she was walking to her kitchen when her knee buckled underneath her and she fell to the ground injuring her left ankle and right knee. She presented to the emergency room where it was confirmed that she had nondisplaced fracture of her right distal femoral metaphysis and left tib-fib fracture. Prior to the mechanical fall she states that she was her normal state of health. That morning she felt her heart racing a little faster than normal which is a frequent occurrence for her. She took a sublingual nitroglycerin and sat down and after a while the fluttering resolved. She denies experiencing any chest pain or shortness of breath. She states her heart was just racing. It was over half hour before she stood up to walk to the kitchen and again while walking she did not have any lightheadedness dizziness or loss of consciousness rather just her knee buckling and falling to the ground. Past medical history: 1. Chronic atrial fibrillation on chronic Coumadin therapy 2. Microvascular dysfunction with nonischemic nuclear stress test December 2018 3. Poorly controlled diabetes 4. Hypertension 5. History of DVT and PE 6. COPD Allergies Allergy/AdvReac Type Severity Reaction Status Date / Time esomeprazole Allergy Severe SOB Verified 01/12/20 21:16 alendronate sodium Allergy Unknown hives Verified 01/12/20 21:16 Home Medications Home Medications Medication Instructions Recorded Confirmed Type acetaminophen [Tylenol Extra 1,000 mg PO Q8H PRN 01/12/20 01/12/20 History Strength] albuterol sulfate [Ventolin HFA] 2 puff INHALATION QID PRN 01/12/20 01/12/20 History digoxin 125 mcg PO DAILY 01/12/20 01/12/20 History duloxetine 30 mg PO DAILY 01/12/20 01/12/20 History fluticasone propionate [Flonase 2 spray INTRANASAL DAILY 01/12/20 01/12/20 History Allergy Relief] hydrochlorothiazide 25 mg PO DAILY 01/12/20 01/12/20 History insulin aspart U-100 [Novolog 0 unit SUBCUT CONTINOUS 01/12/20 01/12/20 History U-100 Insulin aspart] isosorbide mononitrate 30 mg PO DAILY 01/12/20 01/12/20 History letrozole 2.5 mg PO DAILY 01/12/20 01/12/20 History lisinopril 5 mg PO DAILY 01/12/20 01/12/20 History metformin 1,000 mg PO BIDM 01/12/20 01/12/20 History metoprolol succinate 25 mg PO QAM 01/12/20 01/12/20 History metoprolol succinate 50 mg PO QAM 01/12/20 01/12/20 History nitroglycerin [Nitrostat] 0.3 mg SUBLINGUAL .PRN/UD PRN 01/12/20 01/12/20 Histo ry pravastatin 20 mg PO QPM 01/12/20 01/12/20 History pregabalin 150 mg PO BID 01/12/20 01/12/20 History semaglutide [Ozempic] 1 mg SUBCUT WK 01/12/20 01/12/20 History sennosides 8.6 mg PO DAILY PRN 01/12/20 01/12/20 History sertraline 50 mg PO DAILY 01/12/20 01/12/20 History trazodone 50 mg PO HS 01/12/20 01/12/20 History warfarin 5 mg PO QPM 01/12/20 01/12/20 History Patient History Social History Preferred Language: Urdu Communication Ability: Effective Manager Corporate Required: No Beliefs That Will Affect Care: None Current Living Situation: Family Other Information That Helps Us Care for You: No Feels Safe at Home: Yes Safety Concerns: Feels Safe At This Time Smoking Status: Unknown if ever smoked Hx Alcohol Use: No Hx Substance Use: No Review of Systems Review of Systems: All systems reviewed & are unremarkable except as noted in HPI & below Physical Exam Physical Exam: General: Awake, alert and oriented x 3. Mild distress secondary to lower extremity pain HEENT: Normocephalic, atraumatic. Pupils equal, round and reactive to light and accommodation. Extraocular muscles are intact. Anicteric sclera. Moist mucous membranes. Neck: No JVD. No bruit. Cardiovascular: irregularly irregular, unable to appreciate murmur, rub or gallop. Pulmonary: Clear to auscultation bilaterally. No rales, rhonchi, or wheezing. Abdomen: Bowel sounds x 4, soft. No rebound, guarding or tenderness. No organomegaly. Extremities: No clubbing, cyanosis or edema. +2 pedal pulses bilaterally. Skin: Warm and dry. Results & Data ([facility]) Vital Signs (Past 12 Hours) Vital Signs Temp Pulse Pulse Resp BP BP Pulse Ox 01/13/20 07:59 36.8 C 96 H 18 107/65 93 01/13/20 03:47 37 C 89 18 98/63 L 93 01/12/20 23:21 102 H 01/12/20 22:32 36.5 C 89 17 92/59 L 94 01/12/20 22:01 104 H 22 95 01/12/20 22:00 89 23 92/65 L 94 Laboratory Results Laboratory Results - last 24 hr 01/12/20 01/12/20 01/12/20 17:20 17:20 17:20 WBC 10.85 H RBC 4.49 Hgb 13.6 Hct 40.8 MCV 90.9 MCH 30.3 MCHC 33.3 RDW Std Deviation 44.4 RDW Coeff of Katrin 13.4 Plt Count 259 MPV 11.5 H Immature Gran % (Auto) 0.3 Neut % (Auto) 75.3 Lymph % (Auto) 15.1 Clinch % (Auto) 7.3 Eos % (Auto) 1.6 Baso % (Auto) 0.4 Immature Gran # (Auto) 0.03 H Neut # (Auto) 8.18 H Lymph # (Auto) 1.64 Clinch # (Auto) 0.79 H Eos # (Auto) 0.17 Baso # (Auto) 0.04 PT 16.7 H INR 1.6 H APTT PTT Ratio Sodium 135 L Potassium 4.1 Chloride 98 Carbon Dioxide 28 Anion Gap 9.0 BUN 16 Creatinine 1.03 Est Cr Clr Drug Dosing 55.7 Est GFR ( Amer) 63.8 Est GFR (Non-Af Amer) 55.0 BUN/Creatinine Ratio 15.9 Glucose 134 H POC Glucose Estimat Average Glucose Hemoglobin A1c Lactate Calcium 9.8 Magnesium Total Bilirubin 0.6 AST 86 H ALT 69 Alkaline Phosphatase 94 Total Creatine Kinase Troponin I < 0.015 Total Protein 7.9 Albumin 3.4 Globulin 4.5 H Albumin/Globulin Ratio 0.8 L Lipase TSH Digoxin Blood Type Antibody Screen 01/12/20 01/12/20 01/12/20 17:20 20:39 20:39 WBC RBC Hgb Hct MCV MCH MCHC RDW Std Deviation RDW Coeff of Katrin Plt Count MPV Immature Gran % (Auto) Neut % (Auto) Lymph % (Auto) Clinch % (Auto) Eos % (Auto) Baso % (Auto) Immature Gran # (Auto) Neut # (Auto) Lymph # (Auto) Clinch # (Auto) Eos # (Auto) Baso # (Auto) PT INR APTT 30.1 PTT Ratio 1.1 Sodium Potassium Chloride Carbon Dioxide Anion Gap BUN Creatinine Est Cr Clr Drug Dosing Est GFR ( Amer) Est GFR (Non-Af Amer) BUN/Creatinine Ratio Glucose POC Glucose Estimat Average Glucose Hemoglobin A1c Lactate Calcium Magnesium 1.6 L Total Bilirubin AST ALT Alkaline Phosphatase Total Creatine Kinase 42 Troponin I < 0.015 Total Protein Albumin Globulin Albumin/Globulin Ratio Lipase 228 TSH 3.480 Digoxin Blood Type Antibody Screen 01/12/20 01/12/20 01/12/20 20:39 20:39 20:39 WBC RBC Hgb Hct MCV MCH MCHC RDW Std Deviation RDW Coeff of Katrin Plt Count MPV Immature Gran % (Auto) Neut % (Auto) Lymph % (Auto) Clinch % (Auto) Eos % (Auto) Baso % (Auto) Immature Gran # (Auto) Neut # (Auto) Lymph # (Auto) Clinch # (Auto) Eos # (Auto) Baso # (Auto) PT INR APTT PTT Ratio Sodium Potassium Chloride Carbon Dioxide Anion Gap BUN Creatinine Est Cr Clr Drug Dosing Est GFR ( Amer) Est GFR (Non-Af Amer) BUN/Creatinine Ratio Glucose POC Glucose Estimat Average Glucose 341 Hemoglobin A1c 13.5 H Lactate Calcium Magnesium Total Bilirubin AST ALT Alkaline Phosphatase Total Creatine Kinase Troponin I Total Protein Albumin Globulin Albumin/Globulin Ratio Lipase TSH Digoxin 1.0 Blood Type AB Positive Antibody Screen NEGATIVE 01/12/20 01/12/20 01/13/20 20:44 22:50 00:10 WBC RBC Hgb Hct MCV MCH MCHC RDW Std Deviation RDW Coeff of Katrin Plt Count MPV Immature Gran % (Auto) Neut % (Auto) Lymph % (Auto) Clinch % (Auto) Eos % (Auto) Baso % (Auto) Immature Gran # (Auto) Neut # (Auto) Lymph # (Auto) Clinch # (Auto) Eos # (Auto) Baso # (Auto) PT INR APTT PTT Ratio Sodium Potassium Chloride Carbon Dioxide Anion Gap BUN Creatinine Est Cr Clr Drug Dosing Est GFR ( Amer) Est GFR (Non-Af Amer) BUN/Creatinine Ratio Glucose POC Glucose 104 H Estimat Average Glucose Hemoglobin A1c Lactate 3.0 H* 1.8 Calcium Magnesium Total Bilirubin AST ALT Alkaline Phosphatase Total Creatine Kinase Troponin I Total Protein Albumin Globulin Albumin/Globulin Ratio Lipase TSH Digoxin Blood Type Antibody Screen 01/13/20 01/13/20 01/13/20 04:02 05:32 05:32 WBC 10.36 RBC 3.98 L Hgb 11.9 L Hct 35.4 L MCV 88.9 MCH 29.9 MCHC 33.6 RDW Std Deviation 44.3 RDW Coeff of Katrin 13.6 Plt Count 214 MPV 10.7 H Immature Gran % (Auto) 0.3 Neut % (Auto) 73.4 Lymph % (Auto) 18.3 Clinch % (Auto) 6.6 Eos % (Auto) 1.1 Baso % (Auto) 0.3 Immature Gran # (Auto) 0.03 H Neut # (Auto) 7.61 H Lymph # (Auto) 1.90 Clinch # (Auto) 0.68 H Eos # (Auto) 0.11 Baso # (Auto) 0.03 PT 14.4 H INR 1.4 H APTT 45.8 H* PTT Ratio 1.6 Sodium Potassium Chloride Carbon Dioxide Anion Gap BUN Creatinine Est Cr Clr Drug Dosing Est GFR ( Amer) Est GFR (Non-Af Amer) BUN/Creatinine Ratio Glucose POC Glucose 137 H Estimat Average Glucose Hemoglobin A1c Lactate Calcium Magnesium Total Bilirubin AST ALT Alkaline Phosphatase Total Creatine Kinase Troponin I Total Protein Albumin Globulin Albumin/Globulin Ratio Lipase TSH Digoxin Blood Type Antibody Screen 01/13/20 01/13/20 05:32 07:39 WBC RBC Hgb Hct MCV MCH MCHC RDW Std Deviation RDW Coeff of Katrin Plt Count MPV Immature Gran % (Auto) Neut % (Auto) Lymph % (Auto) Clinch % (Auto) Eos % (Auto) Baso % (Auto) Immature Gran # (Auto) Neut # (Auto) Lymph # (Auto) Clinch # (Auto) Eos # (Auto) Baso # (Auto) PT INR APTT PTT Ratio Sodium 136 Potassium 4.5 Chloride 100 Carbon Dioxide 31 Anion Gap 5.0 BUN 19 H Creatinine 1.02 Est Cr Clr Drug Dosing 55.4 Est GFR ( Amer) 64.1 Est GFR (Non-Af Amer) 55.3 BUN/Creatinine Ratio 18.6 Glucose 132 H POC Glucose 155 H Estimat Average Glucose Hemoglobin A1c Lactate Calcium 9.0 Magnesium 2.2 Total Bilirubin AST ALT Alkaline Phosphatase Total Creatine Kinase Troponin I < 0.015 Total Protein Albumin Globulin Albumin/Globulin Ratio Lipase TSH Digoxin Blood Type Antibody Screen Medications Administered Current Inpatient Medications Dextrose (Dextrose 50%) 25 - 50 ml IV UD PRN; Protocol PRN Reason: Hypoglycemia Protocol Stop: 02/12/20 01:14 Digoxin (Lanoxin) 0.125 mg PO DAILY@1600 RAQUEL Stop: 02/12/20 15:59 Fluticasone Propionate (Flonase) 2 sprays NA DAILY RAQUEL Stop: 02/12/20 08:59 Last Admin: 01/13/20 08:19 Dose: Not Given Documented by: Glucagon (Glucagen) 1 mg SQ UD PRN; Protocol PRN Reason: Hypoglycemia Protocol Stop: 02/12/20 01:14 Glucose (Glucose 40%) 15 - 30 gm PO UD PRN; Protocol PRN Reason: Hypoglycemia Protocol Stop: 02/12/20 01:14 Glucose (Dex4 Glucose) 4 - 8 tabs PO UD PRN; Protocol PRN Reason: Hypoglycemia Protocol Stop: 02/12/20 01:14 Promethazine HCl 12.5 mg/ (Sodium Chloride) 50.5 mls @ 202 mls/hr IV Q6H PRN PRN Reason: Nausea And Vomiting Stop: 02/11/20 22:29 Parenteral Electrolytes (Normosol-R) 1,000 mls @ 80 mls/hr IV .[id number] RAQUEL Stop: 02/11/20 23:44 Last Admin: 01/13/20 05:35 Dose: 80 mls/hr Documented by: Heparin Sodium/Dextrose (Heparin Sodium/Dextrose) 25,000 units in 500 mls @ 25 mls/hr IV .Q20H RAQUEL; Protocol Stop: 02/11/20 22:29 Last Titration: 01/13/20 07:09 Dose: 1,250 units/hr, 25 mls/hr Documented by: Insulin Aspart (Novolog Insulin Pump) 1 ea N/A ACHS RAQUEL; Protocol Stop: 02/12/20 07:29 Last Admin: 01/13/20 08:19 Dose: 1 ea Documented by: Insulin Aspart (Novolog Aspart) 0 units SC PRN PRN PRN Reason: Hyperglycemia Protocol Stop: 02/12/20 01:14 Isosorbide Mononitrate (Imdur Extended Rel) 30 mg PO DAILY RAQUEL Stop: 02/12/20 08:59 Last Admin: 01/13/20 08:18 Dose: 30 mg Documented by: Letrozole (Femara) 2.5 mg PO DAILY RAQUEL Stop: 02/12/20 08:59 Last Admin: 01/13/20 08:18 Dose: 2.5 mg Documented by: Metoprolol Succinate (Toprol Xl) 25 mg PO QAM RAQUEL Stop: 02/12/20 08:59 Last Admin: 01/13/20 08:18 Dose: 25 mg Documented by: Miscellaneous (Carbohydrates For Hypoglycemia) 15 - 30 gm PO UD PRN PRN Reason: Hypoglycemia Treatment Stop: 02/12/20 01:14 Miscellaneous Information (Consult Glycemic Management Pharmacy) 1 ea N/A UD PRN PRN Reason: Consult Stop: 02/11/20 22:34 Morphine Sulfate (Morphine Sulfate) 2 mg IV Q2H PRN PRN Reason: Pain Stop: 01/26/20 22:32 Pravastatin Sodium (Pravachol) 20 mg PO QPM RAQUEL Stop: 02/11/20 22:29 Last Admin: 01/12/20 23:06 Dose: 20 mg Documented by: Pregabalin (Lyrica) 150 mg PO BID RAQUEL Stop: 02/11/20 22:29 Last Admin: 01/13/20 08:18 Dose: 150 mg Documented by: Tramadol HCl (Ultram) 25 - 50 mg PO Q4H PRN PRN Reason: Pain Stop: 02/11/20 22:29 Trazodone HCl (Desyrel) 50 mg PO HS RAQUEL Stop: 02/11/20 22:29 Last Admin: 01/12/20 23:05 Dose: 50 mg Documented by:
[2020-01-13] MEDS: MoRPHine SULFATE 2 MG/ML CARP IV PRN (10:18)
[2020-01-13 10:29] LABS: Appearance Urine Clear (Clear); Bacteria Urine Automated Negative (Negative); Bilirubin Urine Negative (Negative); Blood Urine Trace (Negative); Color Urine Dark Yellow; Epithelial Cell Urine Auto 20-30 /lpf (0-5); Glucose Urine UA Negative (Negative); Ketones Urine Negative (Negative); Leukocyte Esterase Urine Negative (Negative); Nitrite Urine Negative (Negative); Protein Urine Negative (Negative); RBC Urine Automated 0-4 /hpf (0-4); Specific Gravity Urine 1.024 (1.000-1.030); Urobilinogen Urine Negative (Negative)
--- NOTE | 2020-01-13 11:57 | Pharmacy Report ---
Glycemic Control Consultation - Date of Service January 13, 2020 - Scope Scope: Glycemic Pharmacist consulted for glycemic control and to write orders per [facility] inpatient glycemic control protocol. - Objective Weight: 83.5 kg Accuchecks BSG (last 24hrs): 01/12/20 01/12/20 01/13/20 17:20 22:50 04:02 Glucose 134 H POC Glucose 104 H 137 H 01/13/20 01/13/20 01/13/20 05:32 07:39 11:27 Glucose 132 H POC Glucose 155 H 126 H Laboratory Data (last 24hrs): 01/12/20 01/13/20 17:20 05:32 Potassium 4.1 4.5 Carbon Dioxide 28 31 Anion Gap 9.0 5.0 Creatinine 1.03 1.02 Est Cr Clr Drug Dosing 55.7 55.4 HbA1c: Hemoglobin A1c 13.5 % (4.5-5.6) H 01/12/20 20:39 - Recent Pertinent Medications Outpatient Anti-diabetic Regimen: * Ozempic 1 mg SQ weekly * Metformin 1000 mg PO BIDM * Medtronic Insulin Pump - Novolog: * Goal Range = 100-180 mg/dL * Basal Rate = 5.0 units/day * Bolus = 15 units with breakfast, 15 units with lunch, and 17 units with dinner * Correction Factor = 1 unit for every 20 mg/dL over 180 mg/dL * Carb Ratio = 1 unit for every 5 grams of CHO * A1c = 13.5% on 01/12/2020 The patient is currently receiving: * Novolog through Medtronic insulin pump at rates and parameters mentioned above Risk Factors for Insulin Resistance: * IVF: Normosol at 80 cc/hr and Heparin drip mixed in D5W * Upcoming Surgery: Patient will be NPO after midnight for surgery on 01/14/2020 * Diet: T2DM (see above) - Assessment & Plan Assessment & Plan: ASSESSMENT: * 70 yo F admitted secondary to chest pain and fall on 01/12/2020 found to have displaced fracture of her right distal femoral metaphysis and left tib-fib fracture. Patient is tentatively scheduled for OR on 01/14/2020. * A1c of 13.5% shows severe sub-optimal control of diabetes as an outpatient. Outpatient medications and pump settings can be seen above. * Spoke with CDE who states patient admits to missing bolus doses sometimes...BG values are usually ~ 220 at home, sometimes higher. After speaking with patient, RN, and CDE, cynthia it would be best to manage this patient with basal-bolus insulin injections perioperatively given changing stressors and PO intake surrounding surgery. All are agreeable. Explained that we will work with patient to ensure she is happy with diabetes management while inpatient. * Patient's BSGs have been very well controlled since admission: 104 mg/dL last night, 137-155 mg/dL this morning. Believe this is secondary to patient's decreased appetite and poor PO intake over the past few days. Patient will be ordered a Carb Consistent diet with lunch today so will transition patient basal regimen with lunch today. Will overlap basal insulin with insulin pump for ~ 2 hours to ensure Lantus is working prior to removing pump. Patient and RN were instructed to bolus through the pump for lunchtime meal today. Novolog insulin will start with dinner meal after pump is removed * Plan to transition patient to once daily Lantus in the morning which will allow for an easier transition back on to the pump prior to patient discharge. PLAN FOR INPATIENT GLYCEMIC CONTROL: * Holding outpatient oral diabetes medications * Continue Novolog insulin pump until 1400 and then remove insulin pump. This will allow for the patient to still receive her basal rate until the Lantus dose begins to work. * Basal insulin * Lantus 100 units SQ x 1 with lunch today (1200) * Bolus insulin - to begin at 1630 today * NovoLog per scale ACHS or Q6hrs while NPO * Goal Range: Low 110 mg/dL - High 140 mg/dL * Correction Factor: 20 mg/dL/unit * Nutritional / Prandial insulin per carb ratio of 1 unit per 5 grams CHO consumed * Please note that the plan above was derived based on current level of insulin resistance and hospital stress. These recommendations are appropriate for inpatient admission only. Plan of care upon discharge will need to be reassessed to avoid potential outpatient hypo/hyperglycemia. Thank you.
[2020-01-13 11:58] LABS: Partial Thromboplastin Ratio 1.8
[2020-01-13] MEDS ORDERED: INSULIN GLARGINE SOLOSTAR 100 UNITS/ML 3 ML PEN SC ONE (12:00)
[2020-01-13 12:03] LABS: Partial Thromboplastin Time 51.1 Seconds (21.0-31.0)
--- NOTE | 2020-01-13 12:48 | Orthopedic Consultation ---
Date of Consultation January 13, 2020 Assessment & Plan (1) Brittany-prosthetic fracture around prosthetic knee: Nondisplaced distal femur periprosthetic fracture with a stable appearing total knee prosthesis. Discussed with patient conservative versus surgical treatment options. Patient is high risk for surgery, uncontrolled diabetes with hemoglobin A1c of 13.5, history of DVT and PEs and on chronic Coumadin therapy for A. fib. The fracture is amenable to nonoperative treatment at this time. We will proceed with conservative treatment of her distal femur periprosthetic fracture. Patient was agreeable to plan. Patient is to maintain knee immobilizer to right knee at all times, may remove for hygiene purposes, strict nonweightbearing right lower extremity. Ice and elevation. We will monitor closely with serial x-rays (2) Ankle fracture, bimalleolar, closed: The patient will require closed reduction vs open reduction internal fixation of left bimalleolar ankle fracture. Unfortunately patient is currently on heparin drip which will need to be stopped 6 to 8 hours prior to proceeding with any surgical intervention. Tentatively we are planning for OR on 01/14/2020 at 1 PM. Strict ice and elevation to left lower extremity. The plan will be open reduction internal fixation of left ankle versus closed reduction and splint application pending soft tissues assessment and adequate reduction of mortise. Patient is high risk for surgical complications due to current medical state including uncontrolled diabetes, hemoglobin A1c of 13.5, chronic anticoagulation for atrial fibrillation history of DVTs and PEs. N.p.o. after midnight Hold anticoagulation 6-8 hours prior to planned procedure Ice and elevation left lower extremity Cardio and medical clearance Thank you for the consultation. History of Present Illness Reason for Consultation: Left bimalleolar ankle fracture, right nondisplaced distal femur periprosthetic fracture Attending Physician: Mack Godinez MD History of Present Illness The patient is a 70-year-old female with past medical history for atrial fibrillation on chronic Coumadin therapy, microvascular disease, poorly controlled diabetes, hypertension, history of DVT and pulmonary embolus, COPD who presented to [facility] secondary to a mechanical fall she sustained while ambulating at home on 01/12/2020. Patient was seen at the emergency department and x-rays confirmed right distal femur periprosthetic fracture and left ankle fracture. She was admitted for further inpatient care. Patient's pain is well controlled at this time. Denies any associated injuries. Admits to pain to the left ankle and right knee. Reports blood sugars ranging from mid 150s to mid 250s. Denies any numbness or tingling in her extremities. Denies loss of consciousness or hitting her head. Allergies Allergy/AdvReac Type Severity Reaction Status Date / Time esomeprazole Allergy Severe Difficulty Verified 01/14/20 06:47 Breathing alendronate sodium Allergy Intermediate hives Verified 01/14/20 06:47 Home Medications Home Medications Medication Instructions Recorded Confirmed Type acetaminophen [Tylenol Extra 1,000 mg PO Q8H PRN 01/12/20 01/12/20 History Strength] albuterol sulfate [Ventolin HFA] 2 puff INHALATION QID PRN 01/12/20 01/12/20 History digoxin 125 mcg PO DAILY 01/12/20 01/12/20 History duloxetine 30 mg PO DAILY 01/12/20 01/12/20 History fluticasone propionate [Flonase 2 spray INTRANASAL DAILY 01/12/20 01/12/20 History Allergy Relief] hydrochlorothiazide 25 mg PO DAILY 01/12/20 01/12/20 History insulin aspart U-100 [Novolog 0 unit SUBCUT CONTINOUS 01/12/20 01/12/20 History U-100 Insulin aspart] isosorbide mononitrate 30 mg PO DAILY 01/12/20 01/12/20 History letrozole 2.5 mg PO DAILY 01/12/20 01/12/20 History lisinopril 5 mg PO DAILY 01/12/20 01/12/20 History metformin 1,000 mg PO BIDM 01/12/20 01/12/20 History metoprolol succinate 25 mg PO QAM 01/12/20 01/12/20 History metoprolol succinate 50 mg PO QAM 01/12/20 01/12/20 History nitroglycerin [Nitrostat] 0.3 mg SUBLINGUAL .PRN/UD PRN 01/12/20 01/12/20 History pravastatin 20 mg PO QPM 01/12/20 01/12/20 History pregabalin 150 mg PO BID 01/12/20 01/12/20 History semaglutide [Ozempic] 1 mg SUBCUT WK 01/12/20 01/12/20 History sennosides 8.6 mg PO DAILY PRN 01/12/20 01/12/20 History sertraline 50 mg PO DAILY 01/12/20 01/12/20 History trazodone 50 mg PO HS 01/12/20 01/12/20 History warfarin 5 mg PO QPM 01/12/20 01/12/20 History Patient History Medical History (Updated 01/14/20 @ 03:14 by Mack Godinez MD) Atrial fibrillation Coronary artery disease Diabetes mellitus type 2, uncontrolled Social History Preferred Language: Persian Communication Ability: Effective Farm 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 Anterior midline total knee incision is clean dry and intact. LLE limited exam secondary to splint immobilization, neurovascular and sensory intact, compartment soft and nontender, splint is clean dry and intact. Constitutional: WD/WN, vitals as above Results & Data ([facility]) Vital Signs (Past 12 Hours) Vital Signs Temp Pulse Resp BP Pulse Ox 01/13/20 11:31 36.8 C 99 H 18 105/60 94 01/13/20 07:59 36.8 C 96 H 18 107/65 93 01/13/20 03:47 37 C 89 18 98/63 L 93 Diagnostic Findings XR ankle LT min 3V routine, XR tibia fibula LT 2V HISTORY: 69 years-old Female fall acute left ankle/tibia and fibula pain status post fall COMPARISON: None TECHNIQUE: 3 views of the left ankle, 2 views of the left tibia and fibula FINDINGS: ANKLE: There is an acute comminuted fracture of the distal metadiaphyseal fibula with a few degrees of apex medial angulation. Fracture fragments are displaced several millimeters medially and posteriorly. Additionally, there is an acute comminuted and displaced medial malleolar fracture with the proximal tibia displaced 7 mm in relation to the distal malleolus fracture fragment. There is pathologic widening of the distal tibiofibular syndesmosis with widening of the medial aspect of the tibiotalar joint. Moderate soft tissue swelling. Demineralized appearance the bones with multifocal osteoarthritis. Arterial calcifications. TIBIA/FIBULA: Distal fractures as above. The proximal mid portions of the tibia and fibula are intact. IMPRESSION: 1. Acute, comminuted and displaced fractures of the distal tibia and fibula as above. 2. Widening of the distal tibial fibular syndesmosis suggests concomitant ligamentous injury. 3. No acute fracture of the proximal or mid tibia or fibula. XR knee RT 4V HISTORY: 69 years-old Female fall acute right knee pain status post fall COMPARISON: Right knee radiographs 05/11/2016 TECHNIQUE: 4 views of the right knee FINDINGS: Right knee total joint arthroplasty and patella resurfacing changes. Dystrophic calcifications project over the intercondylar distribution and suprapatellar regions. Arterial calcifications. Mild circumferential soft tissue swelling. There is a subtle acute nondisplaced periprosthetic fracture involving the lateral distal metadiaphyseal aspect of the femur with fracture extending proximally approximately 10 cm from the lateral femoral condyle. IMPRESSION: Right knee total joint arthroplasty with an acute periprosthetic fra cture of the distal femur as above. ACT 112: Negative or not required by law. The above report was generated using voice recognition software. It may contain grammatical, syntax or spelling errors. XR ankle LT min 3V routine, XR tibia fibula LT 2V HISTORY: 69 years-old Female fall acute left ankle/tibia and fibula pain status post fall COMPARISON: None TECHNIQUE: 3 views of the left ankle, 2 views of the left tibia and fibula FINDINGS: ANKLE: There is an acute comminuted fracture of the distal metadiaphyseal fibula with a few degrees of apex medial angulation. Fracture fragments are displaced several millimeters medially and posteriorly. Additionally, there is an acute comminuted and displaced medial malleolar fracture with the proximal tibia displaced 7 mm in relation to the distal malleolus fracture fragment. There is pathologic widening of the distal tibiofibular syndesmosis with widening of the medial aspect of the tibiotalar joint. Moderate soft tissue swelling. Deminer alized appearance the bones with multifocal osteoarthritis. Arterial calcifications. TIBIA/FIBULA: Distal fractures as above. The proximal mid portions of the tibia and fibula are intact. IMPRESSION: 1. Acute, comminuted and displaced fractures of the distal tibia and fibula as above. 2. Widening of the distal tibial fibular syndesmosis suggests concomitant ligamentous injury. 3. No acute fracture of the proximal or mid tibia or fibula. CT knee RT wo con CT DOSE: 167.15 mGy.cm CLINICAL HISTORY: Knee pain status post trauma. Suspected periprosthetic fracture. TECHNIQUE: Helical images were acquired in the transverse plane. Sagittal coronal reformatted images were acquired. A dose lowering technique was utilized adhering to the principles of ALARA. COMPARISON STUDY: X-ray study dated 01/12/2020 FINDINGS: There is a nondisplaced mildly comminuted longitudinally oriented hairline fracture of the distal femoral metaphysis extending to the level of the femoral prosthesis. No proximal tibial fractures are visualized. No proximal fibular fractures are visualized. Incidental note is made of moderate vascular calcification. The superior extent of the fractures not included on this CT scan of the knee. There is artifact from the patient's right knee prosthesis. IMPRESSION: 1. Mildly comminuted nondisplaced periprosthetic fracture of the distal femoral metaphysis. 2. No fractures of the proximal tibia or fibula are visualized (1) Brittany-prosthetic fracture around prosthetic knee Encounter type: initial encounter Laterality: right Qualified Code(s): M97.11XA - Periprosthetic fracture around internal prosthetic right knee joint, initial encounter
[2020-01-13] MEDS ORDERED: [UNRECOGNIZED DRUG - REMARK] ONE (14:00)
--- NOTE | 2020-01-13 15:27 | Hospitalist Progress Note ---
Date of Service January 13, 2020 Assessment & Plan (1) Ankle fracture, bimalleolar, closed: Management per Orthopedic Surgery. OK to proceed with surgery. Check vitamin D level. (2) Brittany-prosthetic fracture around prosthetic knee: Management per Orthopedic Surgery. (3) Chest pain: Experienced chest discomfort at home. Serial troponins negative. Seen by Cardiology. No need for further cardiac evaluation. (4) Coronary artery disease: History of microvascular angina. Nuclear stress test was negative for ischemia in 2019. Acute CO ruled out. Seen in consultation by Cardiology. Echo showed mild concentric LVH, LVEF > 70%, no segmental wall motion abnormalities, grade I diastolic dysfunction, aortic sclerosis without significant stenosis, mitral annular calcification without stenosis. No need for additional cardiac evaluation before proceeding with surgery. Continue aspirin, metoprolol, nitrates, statin. (5) Atrial fibrillation: Chronic atrial fibrillation. Continue metoprolol and digoxin for rate control. Warfarin held for anticipated surgery; IV heparin ordered. (6) COPD (chronic obstructive pulmonary disease): Pulmonary status stable. Albuterol PRN. (7) Diabetes mellitus type 2, uncontrolled: DM type 2, usually managed with semaglutide and NovoLog. Hgb A1c = 13.5. FBS today =155. Continue insulin coverage. Ongoing education / support during hospital stay and in clinic. (8) Dyslipidemia: Continue pravastatin. (9) DVT prophylaxis: History of DVT & PE. Warfarin on hold due to anticipated surgery. Receiving IV heparin. (10) Discharge planning issues: Discharge disposition to be determined. Family Medicine follow-up with Dr. Jaramillo. Admission and Anticipated Discharge Date Admission Date: January 12, 2020 Subjective Recheck for atrial fibrillation, orthopedic injuries, and other problems. Patient seen in their room around 1450. Experiencing knee and ankle pain. No chest pain or SOB. Review of Systems: Constitutional- no fever. Cardiac- as noted above. Pulmonary- no cough or SOB. GI- no nausea, vomiting, diarrhea, melena, hematochezia. - no urinary symptoms. Otherwise, as noted above. Physical Exam Constitutional: no acute distress Respiratory: no respiratory distress Auscultation: lungs clear to auscultation bilaterally Cardiovascular: Rate/Rhythm: + irregularly irregular Heart Sounds: + murmur (II/ sys murmur LSB) and + cardiac rub; no gallop Vessels: no JVD Extremities: no calf tenderness and no edema Gastrointestinal (Abdomen): normal bowel sounds, soft, nontender, no hepatosplenomegaly Musculoskeletal: Extremities: + extremities abnormal to inspection (immobilizer applied to RLE; left ankle splinted) Skin: no rashes, warm and dry Psychiatric: Orientation: alert and oriented x 3 Results & Data Results & Data ([facility]) Vital Signs (Past 12 Hours) Vital Signs Temp Pulse Resp BP Pulse Ox 01/13/20 11:31 36.8 C 99 H 18 105/60 94 01/13/20 07:59 36.8 C 96 H 18 107/65 93 01/13/20 03:47 37 C 89 18 98/63 L 93 Laboratory Results Cardiac Enzymes 01/13/20 Range/Units 05:32 Troponin I < 0.015 (0-0.045) ng/ml Coagulation 01/13/20 01/13/20 Range/Units 05:32 11:27 PT 14.4 H (9.0-12.0) Seconds APTT 45.8 H* 51.1 H* (21.0-31.0) Seconds CBC 01/13/20 Range/Units 05:32 WBC 10.36 (4.8-10.8) K/uL RBC 3.98 L (4.2-5.4) M/uL Hgb 11.9 L (12.0-16.0) g/dL Hct 35.4 L (37-47) % Plt Count 214 (130-400) K/uL Neut # (Auto) 7.61 H (1.4-6.5) K/uL Lymph # (Auto) 1.90 (1.2-3.4) K/uL [place] # (Auto) 0.68 H (0.11-0.59) K/uL Eos # (Auto) 0.11 (0-0.5) K/uL Baso # (Auto) 0.03 (0-0.2) K/uL Comprehensive Metabolic Panel 01/13/20 Range/Units 05:32 Sodium 136 (136-145) mmol/L Potassium 4.5 (3.5-5.1) mmol/L Chloride 100 (98-107) mmol/L Carbon Dioxide 31 (21-32) mmol/L BUN 19 H (7-18) mg/dl Creatinine 1.02 (0.6-1.2) mg/dl Glucose 132 H (70-99) mg/dl Calcium 9.0 (8.5-10.1) mg/dl Intake and Output 01/13/20 01/13/20 01/14/20 14:59 22:59 06:59 Intake Total 1448.750 / 1620.000 171.25 / 1620.000 Output Total 350 / 2300 1950 / 2300 Balance 1098.750 / -680.000 -1778.75 / -680.000 Intake: IV 1328.750 / 1500.000 171.25 / 1500.000 HEPARIN SODIUM/DEXTROSE 25,000 328.750 / 500.000 171.25 / 500.000 units In 500 ml @ 1,250 UNITS/ HR 25 mls/hr IV .Q20H RAQUEL Rx#: [id number] Normosol-R 1,000 ml @ 80 mls/hr 1000 / 1000 IV .[id number] RAQUEL Rx#:[id number] Oral 120 / 120 0 / 120 Output: Urine Amount (Catheter) 350 / 2300 1949 / 2300 Cisneros/Indwelling 350 / 2300 1950 / 2300 Other: Weight 83.5 kg Patient Weight 01/14/20 06:59 Weight 83.5 kg (1) Chest pain Chest pain type: unspecified Qualified Code(s): R07.9 - Chest pain, unspecified (2) Brittany-prosthetic fracture around prosthetic knee Encounter type: initial encounter Laterality: right Qualified Code(s): M97.11XA - Periprosthetic fracture around internal prosthetic right knee joint, initial encounter
[2020-01-13] MEDS: DIGOXIN 0.125 MG TAB PO SCH (16:42)
[2020-01-13] MEDS: INSULIN ASPART 100 UNITS/ML 3 ML PEN SC SCH ×2 (16:43→20:17)
[2020-01-13] MEDS: HEPARIN SODIUM/DEXTROSE 25,000 UNITS/500 ML BAG IV SCH (19:08)
[2020-01-13] MEDS: PRAVASTATIN SOD 20 MG TAB PO SCH (20:15)
[2020-01-13] MEDS: TRAZODONE HCL 50 MG TAB PO SCH (20:15)
[2020-01-14 05:53] LABS: Hematocrit (blood only) 33.9 % (37-47); Hemoglobin 11.3 g/dL (12.0-16.0); Mean Corpuscular Hemoglobin 29.7 pg (25-34); Mean Corpuscular Hgb Conc 33.3 g/dL (32-36); Mean Platelet Volume 10.7 fL (7.4-10.4); Platelet Count 169 K/uL (130-400); RDW Coefficient of Variation 13.7 % (11.5-14.5); Red Blood Count 3.81 M/uL (4.2-5.4); White Blood Count 6.92 K/uL (4.8-10.8)
[2020-01-14 06:21] LABS: INR 1.2 (0.9-1.1); Partial Thromboplastin Ratio 1.7; Prothrombin Time 12.1 Seconds (9.0-12.0)
[2020-01-14 06:27] LABS: BUN Creatinine Ratio 15.6 (10-20); Calcium 8.7 mg/dl (8.5-10.1); Creatinine Clr Calc Pharmacy 67.8 ml/min; Est GFR (African American) 82.2; Est GFR (Non-African American) 70.9; Potassium 3.8 mmol/L (3.5-5.1)
[2020-01-14] MEDS ORDERED: BUPIVACAINE 0.5 % 5 MG/1 ML MPF 30ML VIAL ONE (06:27)
[2020-01-14 06:28] LABS: Partial Thromboplastin Time 48.6 Seconds (21.0-31.0)
[2020-01-14] MEDS: NORMOSOL-R 1,000 ML IV SCH ×2 (06:43→18:57)
[2020-01-14] MEDS ORDERED: INSULIN GLARGINE SOLOSTAR 100 UNITS/ML 3 ML PEN SC ONE (08:00)
[2020-01-14] MEDS: METOPROLOL SUCC 25MG EXT REL TAB PO SCH (09:24)
[2020-01-14] MEDS: ISOSORBIDE MONO EXTENDED REL 30 MG TABCR PO SCH (09:24)
[2020-01-14] MEDS: LETROZOLE 2.5 MG TAB PO SCH (09:25)
[2020-01-14] MEDS: FLUTICASONE PROPIONATE NA SPR 16 GM BTL SCH (09:26)
[2020-01-14] MEDS: INSULIN ASPART 100 UNITS/ML 3 ML PEN SC SCH ×4 (09:29→20:56)
[2020-01-14] MEDS: PREGABALIN 150 MG CAP PO SCH ×2 (09:34→20:46)
--- NOTE | 2020-01-14 10:19 | Cardiology Progress Note ---
Date of Service January 14, 2020 Assessment & Plan (1) Palpitations: The patient denies experiencing any chest pain recently and clearly states that she took the nitro for feeling her heart racing. There are no new wall motion abnormalities on echocardiogram. Her EKG is unchanged. She has not had any chest pain in quite some time and cannot remember the last time she took a nitroglycerin. She had a nuclear stress test in December 2018 which her electrocardiogram technician read as normal. I do not see any component of active coronary ischemia at this time. (2) Preop cardiovascular exam: The patient was counseled that given her comorbidities I would place her as a moderate risk for any adverse perioperative cardiovascular event with her wrist being approximately less than 5%. She was further counseled that no further cardiac testing or intervention would further lower that risk. She states that she understands, she is accepting of that risk and wishes to proceed with any surgery that may be deemed necessary by our orthopedic colleagues. No need to delay surgical intervention from a cardiac standpoint. (3) Microvascular angina: Chronic, stable Continue metoprolol and Imdur as an inpatient (4) Chronic a-fib: Relatively well rate controlled now. Would suspect rates to may be running a little high given the ongoing pain. Her INR was subtherapeutic and obviously her Coumadin has been held. She has been started on a heparin drip which obviously may be discontinued for surgery. Her current PTT is a little low and protocol recommends re-bolusing, however, given the possibility of going to the OR today I have instructed nursing not to give the bolus at this time. We will continue to follow normal anticoagulation protocol after surgery. Subjective Patient seen and examined, chart reviewed. States that she is feeling relatively well today. Notes that her lower extremity pain is better controlled today. She continues to deny any cardiac complaints of chest pain, shortness of breath, palpitations, lightheadedness, dizziness or syncope. Telemetry reviewed: Atrial fibrillation with rates averaging around 100 bpm Review of Systems Review of Systems: All systems reviewed & are unremarkable except as noted in HPI & below Physical Exam Physical Exam: General: Awake, alert and oriented x 3. No acute distress. HEENT: Normocephalic, atraumatic. Pupils equal, round and reactive to light and accommodation. Extraocular muscles are intact. Anicteric sclera. Moist mucous membranes. Neck: No JVD. No bruit. Cardiovascular: irregularly irregular, unable to appreciate murmur, rub or gallop. Pulmonary: Clear to auscultation bilaterally. No rales, rhonchi, or wheezing. Abdomen: Bowel sounds x 4, soft. No rebound, guarding or tenderness. No organomegaly. Extremities: No clubbing, cyanosis or edema. +2 pedal pulses bilaterally. Skin: Warm and dry. Results & Data Vital Signs (Past 12 Hours) Vital Signs Temp Pulse Resp BP Pulse Ox 01/14/20 07:46 37.0 C 104 H 18 123/74 94 01/14/20 03:53 37.2 C 87 20 117/69 92 01/13/20 23:59 37.3 C 102 H 20 116/62 93
[2020-01-14] MEDS ORDERED: fentaNYL citrate 100 MCG/2 ML VIAL ONE ×2 (12:06→15:52)
[2020-01-14] MEDS ORDERED: MIDAZOLAM HCL 1 MG/ML 2ML VIAL ONE (12:06)
--- NOTE | 2020-01-14 13:34 | History & Physical Bridge Note ---
Date of Service January 14, 2020 History & Physical Bridge Note I have examined the patient, reviewed the History & Physical and in the interval since the performance of the History & Physical I have noted the following changes of clinical significance: no changes noted
--- NOTE | 2020-01-14 13:39 | Orthopedic Progress Note ---
Date of Service January 14, 2020 Assessment & Plan (1) Brittany-prosthetic fracture around prosthetic knee: Maintain nonweightbearing and knee immobilizer. (2) Ankle fracture, bimalleolar, closed: I have indicated the patient for open reduction internal fixation of left ankle versus closed reduction and splint/cast application. The risks, benefits, alternatives and complications associate with the procedure were explained to the patient detail. These include however not limited to infections, blood clots, acute blood loss, wound healing complications, injury to surrounding nerves, bone, vessels, soft tissues, arthrofibrosis, chronic pain, nonunion, malunion, need for additional surgery, neuropathic arthropathy, loss of limb and loss of life. Pending soft tissue evaluation and adequate reduction in OR will proceed with either closed reduction versus open reduction internal fixation. Patient understands that she is at increased surgical risk, especially infections and wound healing complications secondary to uncontrolled diabetes microvascular disease, chronic blood thinners and history of DVTs. Hemoglobin A1c 13.5. Also at increased risk of malunion and nonunion. Antibiotics on-call to the OR Blood thinners held Medical and cardiac clearance obtained. Patient require strict glycemic control postoperatively as well as nutritional consultation. Admission and Anticipated Discharge Date Admission Date: January 12, 2020 Subjective Patient seen in preoperative holding, comfortable, pain well controlled, no acut e issues overnight. Medically stabilized to proceed with open reduction internal fixation of left ankle versus closed reduction and splint application. Review of Systems Review of Systems: All systems reviewed & are unremarkable except as noted in HPI & below Constitutional: as per Subjective / HPI Physical Exam Physical Exam: Limited physical exam secondary to short leg splint to left ankle, compartment soft nontender, actively wiggles toes, cap refill less than 2 seconds, splint clean dry and intact. Results & Data ([facility]) Vital Signs (Past 12 Hours) Vital Signs Temp Pulse Resp BP Pulse Ox 01/14/20 12:28 36.9 C 97 H 22 120/80 93 01/14/20 11:25 37.1 C 105 H 18 109/67 93 01/14/20 07:46 37.0 C 104 H 18 123/74 94 01/14/20 03:53 37.2 C 87 20 117/69 92 (1) Brittany-prosthetic fracture around prosthetic knee Encounter type: initial encounter Laterality: right Qualified Code(s): M97.11XA - Periprosthetic fracture around internal prosthetic right knee joint, initial encounter
--- NOTE | 2020-01-14 13:53 | Anesthesiology Consultation ---
Date of Service January 14, 2020 Assessment & Plan Chart Review Chart Review: Acceptable Risk for Surgery Consults Requested none History Surgery Operation Date: 01/14/20 13:00 Proposed Procedures p Left Ankle Fracture Open Reduction Internal Fixation versus Closed Reduction - Anthony Carpenter DO Height/Weight Height: 5 ft 6 in Weight: 83.7 kg Allergies Allergy/AdvReac Type Severity Reaction Status Date / Time esomeprazole Allergy Severe Difficulty Verified 01/14/20 06:47 Breathing alendronate sodium Allergy Intermediate hives Verified 01/14/20 06:47 Medications Home Medications Medication Instructions Recorded Confirmed Last Taken acetaminophen [Tylenol Extra 1,000 mg PO Q8H PRN 01/12/20 01/12/20 Unknown Strength] albuterol sulfate [Ventolin HFA] 2 puff INHALATION QID PRN 01/12/20 01/12/20 Unknown digoxin 125 mcg PO DAILY 01/12/20 01/12/20 Unknown duloxetine 30 mg PO DAILY 01/12/20 01/12/20 Unknown fluticasone propionate [Flonase 2 spray INTRANASAL DAILY 01/12/20 01/12/20 Unknown Allergy Relief] hydrochlorothiazide 25 mg PO DAILY 01/12/20 01/12/20 Unknown insulin aspart U-100 [Novolog 0 unit SUBCUT CONTINOUS 01/12/20 01/12/20 01/12/20 U-100 Insulin aspart] isosorbide mononitrate 30 mg PO DAILY 01/12/20 01/12/20 Unknown letrozole 2.5 mg PO DAILY 01/12/20 01/12/20 Unknown lisinopril 5 mg PO DAILY 01/12/20 01/12/20 Unknown metformin 1,000 mg PO BIDM 01/12/20 01/12/20 Unknown metoprolol succinate 25 mg PO QAM 01/12/20 01/12/20 Unknown metoprolol succinate 50 mg PO QAM 01/12/20 01/12/20 Unknown nitroglycerin [Nitrostat] 0.3 mg SUBLINGUAL .PRN/UD PRN 01/12/20 01/12/20 Un known pravastatin 20 mg PO QPM 01/12/20 01/12/20 Unknown pregabalin 150 mg PO BID 01/12/20 01/12/20 Unknown semaglutide [Ozempic] 1 mg SUBCUT WK 01/12/20 01/12/20 Unknown sennosides 8.6 mg PO DAILY PRN 01/12/20 01/12/20 Unknown sertraline 50 mg PO DAILY 01/12/20 01/12/20 Unknown trazodone 50 mg PO HS 01/12/20 01/12/20 Unknown warfarin 5 mg PO QPM 01/12/20 01/12/20 Unknown Active Medications Generic Name Dose Route Start Last Admin Trade Name Freq PRN Reason Stop Dose Admin Digoxin 0.125 mg 01/13/20 16:00 01/13/20 16:42 Lanoxin PO 02/12/20 15:59 0.125 mg DAILY@1600 RAQUEL Administration Fluticasone Propionate 2 sprays 01/13/20 09:00 01/14/20 09:26 Flonase NA 02/12/20 08:59 Not Given DAILY RAQUEL Parenteral Electrolytes 1,000 mls @ 80 mls/hr 01/12/20 23:45 01/14/20 06:43 Normosol-R IV 02/11/20 23:44 80 mls/hr .[id number] RAQUEL Administration Insulin Aspart 0 units 01/14/20 07:15 01/14/20 12:17 Novolog Flexpen SC 02/13/20 07:14 13 units Q6 RAQUEL Administration Protocol Isosorbide Mononitrate 30 mg 01/13/20 09:00 01/14/20 09:24 Imdur Extended Rel PO 02/12/20 08:59 30 mg DAILY RAQUEL Administration Letrozole 2.5 mg 01/13/20 09:00 01/14/20 09:25 Femara PO 02/12/20 08:59 2.5 mg DAILY RAQUEL Administration Metoprolol Succinate 25 mg 01/13/20 09:00 01/14/20 09:24 Toprol Xl PO 02/12/20 08:59 25 mg QAM RAQUEL Administration Morphine Sulfate 2 mg 01/12/20 22:33 01/13/20 10:18 Morphine Sulfate IV 01/26/20 22:32 2 mg Q2H PRN Administration Pain Pravastatin Sodium 20 mg 01/12/20 22:30 01/13/20 20:15 Pravachol PO 02/11/20 22:29 20 mg QPM RAQUEL Administration Pregabalin 150 mg 01/12/20 22:30 01/14/20 09:34 Lyrica PO 02/11/20 22:29 150 mg BID RAQUEL Administration Tramadol HCl 25 - 50 mg 01/12/20 22:30 01/13/20 14:02 Ultram PO 02/11/20 22:29 50 mg Q4H PRN Administration Pain Trazodone HCl 50 mg 01/12/20 22:30 01/13/20 20:15 Desyrel PO 02/11/20 22:29 50 mg HS RAQUEL Administration NPO Date Last Intake of Fluids: 01/14/20 Time Last Intake of Fluids: 00:00 Last Intake of Fluids Comment: sips of water with meds this am Date Last Intake of Solids: 01/14/20 Time Last Intake of Solids: 00:00 Past Medical History Medical History Atrial fibrillation Coronary artery disease Diabetes mellitus type 2, uncontrolled Social History Smoking Status: Unknown if ever smoked Hx Alcohol Use: No Hx Substance Use: No Physical Exam Vital Signs Last Vital Signs Temp 36.9 C 01/14/20 12:28 Pulse 97 H 01/14/20 12:28 Resp 22 01/14/20 12:28 BP 120/80 01/14/20 12:28 Pulse Ox 93 01/14/20 12:28 Testing Laboratory Results 01/14/20 05:37 01/14/20 05:37 PT 12.1 Seconds (9.0-12.0) H 01/14/20 05:37 INR 1.2 (0.9-1.1) H 01/14/20 05:37 APTT 48.6 Seconds (21.0-31.0) H* 01/14/20 05:37 Hemoglobin A1c 13.5 % (4.5-5.6) H 01/12/20 20:39 Urine Color Dark Yellow 01/13/20 09:45 Urine Appearance Clear (Clear) 01/13/20 09:45 Urine pH 5.0 (4.5-7.5) 01/13/20 09:45 Ur Specific Mobile 1.024 (1.000-1.030) 01/13/20 09:45 Urine Protein Negative (Negative) 01/13/20 09:45 Urine Glucose (UA) Negative (Negative) 01/13/20 09:45 Urine Ketones Negative (Negative) 01/13/20 09:45 Urine Nitrite Negative (Negative) 01/13/20 09:45 Ur Leukocyte Esterase Negative (Negative) 01/13/20 09:45 Urine WBC (Auto) 5-10 /hpf (0-5) H 01/13/20 09:45 Urine RBC (Auto) 0-4 /hpf (0-4) 01/13/20 09:45 U Hyaline Cast (Auto) 1-5 /lpf (0-5) 01/13/20 09:45 U Epithel Cells (Auto) 20-30 /lpf (0-5) H 01/13/20 09:45 Urine Bacteria (Auto) Negative (Negative) 01/13/20 09:45 Blood Type AB Positive 01/12/20 20:39 Antibody Screen NEGATIVE 01/12/20 20:39 01/14/20 01/14/20 01/14/20 13:03 11:33 09:22 POC Glucose 260 H 268 H 265 H
[2020-01-14] MEDS ORDERED: ROCURONIUM BROMIDE 10 MG/ML 5 ML VIAL ONE (14:31)
[2020-01-14] MEDS ORDERED: LIDOCAINE HCL 2% 2 ML VIAL/AMP(20MG/ML) INFIL ONE (14:31)
[2020-01-14] MEDS ORDERED: PHENYLEPHRINE 100MCG/ML 5ML SYR ONE (14:31)
[2020-01-14] MEDS ORDERED: PROPOFOL IV EMULSION 10 MG/ML 20 ML VIAL IV ONE (14:31)
[2020-01-14] MEDS ORDERED: CEFAZOLIN 250 MG/ML 1 GM VIAL ONE (14:34)
[2020-01-14] MEDS ORDERED: NEOSTIGMINE METHYLSULFATE 5 MG/5 ML SYR ONE (14:44)
[2020-01-14] MEDS ORDERED: GLYCOPYRROLATE 0.2 MG/ML VIAL ONE ×2 (14:44→16:43)
[2020-01-14] MEDS ORDERED: ONDANSETRON INJ 2 MG/ML 2 ML VIAL ONE (14:44)
[2020-01-14] MEDS ORDERED: PHENYLEPHRINE HCL 10 MG/ML VIAL ONE (15:08)
--- NOTE | 2020-01-14 15:12 | Pharmacy Report ---
Pharmacy Glycemic Short Note 2 - Date of Service January 14, 2020 - Glycemic Short BSG Results (Last 24 hours): 01/13/20 01/13/20 01/14/20 16:18 19:51 05:37 Glucose 278 H POC Glucose 179 H 273 H 01/14/20 01/14/20 01/14/20 09:22 11:33 13:03 Glucose POC Glucose 265 H 268 H 260 H ASSESSMENT: * 70 yo F admitted secondary to chest pain and fall on 01/12/2020 found to have displaced fracture of her right distal femoral metaphysis and left tib-fib fracture. Patient is tentatively scheduled for OR on 01/14/2020. * A1c of 13.5% shows severe sub-optimal control of diabetes as an outpatient. Outpatient medications and pump settings can be seen above. * Spoke with CDE who states patient admits to missing bolus doses sometimes...BG values are usually ~ 220 at home, sometimes higher. After speaking with patient, RN, and CDE, belive it would be best to manage this patient with basal-bolus insulin injections perioperatively given changing stressors and PO intake surrounding surgery. All are agreeable. Explained that we will work with patient to ensure she is happy with diabetes management while inpatient. * Patient's BSGs have been very well controlled since admission: 104 mg/dL last night, 137-155 mg/dL this morning. Believe this is secondary to patient's decreased appetite and poor PO intake over the past few days. Patient will be ordered a Carb Consistent diet with lunch today so will transition patient basal regimen with lunch today. Will overlap basal insulin with insulin pump for ~ 2 hours to ensure Lantus is working prior to removing pump. Patient and RN were instructed to bolus through the pump for lunchtime meal today. Novolog insulin will start with dinner meal after pump is removed * Plan to transition patient to once daily Lantus in the morning which will allow for an easier transition back on to the pump prior to patient discharge. 01/13: * Patient NPO this am for ankle surgery - tighten CF/CR * Patient on ~168 units of insulin per day / plan to split more 50/50 regimen with basal and bolus insulin PLAN FOR INPATIENT GLYCEMIC CONTROL: * Basal insulin * Lantus 90 units this AM * Bolus insulin * NovoLog per scale ACHS or Q6hrs while NPO * Goal Range: Low 110 mg/dL - High 140 mg/dL * Correction Factor: 10 mg/dL/unit * Nutritional / Prandial insulin per carb ratio of 1 unit per 3 grams CHO consumed
[2020-01-14] MEDS ORDERED: CEFAZOLIN 2000MG 2,000 MG/15 ML SYR IV ONE (15:27)
--- NOTE | 2020-01-14 16:28 | Fluoroscopy Report ---
FL ankle LT 2V CLINICAL HISTORY: LEFT ANKLE ORIF VS. CLOSED REDUCTION COMPARISON STUDY: Left ankle 01/12/2020. FLUOROSCOPY TIME: 1 minute and 54 seconds. FINDINGS: 4 fluoroscopic spot images of the left ankle demonstrate internal fixation of a bimalleolar fracture with cortical plate and screws. The hardware appears intact. Alignment appears near-anatomi c. IMPRESSION: Fluoroscopy provided for internal fixation of a bimalleolar left ankle fracture. ACT 112: Negative or not required by law. Electronically signed by: Renny Bell M.D. 01/14/2020 4:27 PM
--- NOTE | 2020-01-14 17:22 | Post Operative Brief Note ---
Immediate Post Op Note v1 Date of Surgery January 14, 2020 Pre & Post Diagnosis Operation Date: 01/14/20 13:00 Pre-Op Diagnosis: Left ankle fracture Post-Op Diagnosis: Left ankle fracture I identified the patient and participated in the time-out.: Yes Procedure Operation Date: 01/14/20 13:00 Actual Procedures p Left Ankle Fracture Open Reduction Internal Fixation, Splint application(Left) - Anthony Carpenter DO Surgeon Anthony Carpenter DO End Finder Forming Department none Estimated Blood Loss 80 Findings Consistent with Post-Op Diagnosis Fluids 1300 cc LR Specimens none Drains Ortega Catheter (arrived to OR suite with ortega catheter intact) Anesthesia Type General Regional Complications none Disposition Disposition: Recovery Room Overlapping Procedure I was present for: the critical portions of procedure. I was immediately available: during the entire case. Back up surgeon: was not required during procedure.
--- NOTE | 2020-01-14 17:23 | Operative Report ---
Post Operative Report Pre & Post Diagnosis Operation Date: 01/14/20 13:00 Pre-Op Diagnosis: Left ankle fracture Post-Op Diagnosis: Left ankle fracture I identified the patient and participated in the time-out.: Yes Procedure Operation Date: 01/14/20 13:00 Actual Procedures p Left Ankle Fracture Open Reduction Internal Fixation, Splint application(Left) - Anthony Carpenter DO Surgeon Anthony Carpenter DO Dehydration Unit Operator none Estimated Blood Loss 80 Findings Consistent with Post-Op Diagnosis Specimens none Anesthesia Type General Regional Complications none Disposition Disposition: Recovery Room Description of Procedure The patient was brought to the operating room and placed in the supine position on the OR table. Upon the administration of general anesthesia a well-padded tourniquet was applied to the proximal thigh of the left leg. The surgical limb was prepped and draped in the typical sterile fashion. A time out was performed, patient identified and site chidi verified. IV antibiotics were verified and given. The limb was exsanguinated and the tourniquet was inflated to 300mmHg. She had swelling distally along the lower leg however she had positive wrinkle sign and I felt it was reasonable to proceed with open reduction and internal fixation. Skin overlying the fractures was intact and the compartments were soft and compressible. I made a longitudinal incision over the distal aspect of the fibula. I sharply incised the skin and then used Bovie electrocautery to achieve hemostasis. Care was taken to protect the neurovascular structures. I then dissected down to the fibular fracture cleared it of any interposing soft tissue. There was a fair amount of comminution at the fracture site. An attempt was made to reduce the fracture with a crab claw clamp. Due to the degree of comminution I elected to fix the fracture with a distal fibular locking plate in a bridging technique. I then positioned into place a 6 hole distal fibular locking plate laterally over the fibula. Once I was satisfied with the reduction the distal aspect of the plate was held with two k-wires and a nonlocking screw measuring 14mm in the plate to bring the plate down to bone. I confirmed reduction and plate position with c-arm fluoroscopy. I then placed 5 distal locking screws measuring 8mm, 10mm, 14mm, 16mm x 2 and confirmed screw positioning which was all inside the bone and did not violate the joint. Next two additional cortical screws were placed in a bicortical fashion in the proximal aspect of the plate measuring 14mm and 16mm. Next, I turned my attention to the medial aspect of the ankle. A curvilinear incision was made over the distal aspect of the medial malleolus. I sharply incised the skin and then used Bovie electrocautery to achieve hemostasis. Care was taken to protect the neurovascular structures. The transverse medial malleolus fracture was cleared of interposed soft tissue and was reduced with a point to point reduction clamp. Next, two k-wires were passed from distal to proximal holding the reduced fracture and the clamp was removed. Fracture reduction and k-wire position was confirmed with c-arm fluoroscopy. Next, two 3.5 mm partially threaded cannulated screws measuring 50mm were placed over the k-wires. Once again screw placement and fracture reduction was assessed with c- arm fluoroscopy. Both k-wires were removed at this time. I confirmed reduction on AP, lateral and mortise views. An external rotation stress was applied to the ankle which demonstrated adequate reduction and fixation of the fractures without syndesmotic injury. The wounds were thoroughly irrigated with sterile saline solution. Deep tissues were closed with interrupted 1-0 Vicryl suture. There was good soft tissue coverage of the plate and screws. The subcutaneous tissue was closed with interrupted 2-0 Vicryl sutures. The skin was closed with 3-0 nylon suture. A sterile dressing was applied which included xeroform, 4x4s, abd and webrill and an AO was splint placed. All needle and sponge counts were correct at the end of the procedure. The patient was transferred to the PACU in stable condition. The patient tolerated the procedure well and was without apparent complications. I attest to the content of the Intraoperative Record and any orders documented therein. Any exceptions are noted below.
--- NOTE | 2020-01-14 18:03 | Anesthesiology Progress Note ---
Date of Service January 14, 2020 Anesthesia Post Procedure Vital Signs Vital Signs: Temp Pulse Pulse Resp BP BP Pulse Ox 01/14/20 18:00 98 H 24 127/76 99 01/14/20 17:50 108 H 19 132/79 100 01/14/20 17:43 36.3 C L 98 H 12 132/94 98 01/14/20 12:28 36.9 C 97 H 22 120/80 93 01/14/20 11:25 37.1 C 105 H 18 109/67 93 01/14/20 07:46 37.0 C 104 H 18 123/74 94 01/14/20 03:53 37.2 C 87 20 117/69 92 01/13/20 23:59 37.3 C 102 H 20 116/62 93 01/13/20 18:47 37.1 C 104 H 18 123/71 93 Pain Intensity Left Lower Leg: Pain Intensity: 4 Right Knee: Pain Intensity: 8 Transfer of Care Handoff Completed per policy Notes Mental Status: alert / awake / arousable Patient Amnestic to Procedure: Yes Nausea / Vomiting: adequately controlled Pain: adequately controlled Airway Patency, RR, SpO2: stable & adequate BP & HR: stable & adequate Hydration State: stable & adequate Anesthetic Complications: no major complications apparent
--- NOTE | 2020-01-14 18:05 | Orthopedic Progress Note ---
Date of Service January 14, 2020 Assessment & Plan (1) Brittany-prosthetic fracture around prosthetic knee: Maintain nonweightbearing and knee immobilizer. (2) Ankle fracture, bimalleolar, closed: Status post ORIF left ankle -Ancef x24 -DVT prophylaxis SCDs, teds, will restart patient's home blood thinner warfarin tonight, bridge per medicine in a.m. -Nonweightbearing left lower extremity -Postoperative x-ray demonstrates a well aligned well fixed orthopedic implants anatomic alignment of the fracture site and mortise -A.m. labs Admission and Anticipated Discharge Date Admission Date: January 12, 2020 Subjective Post Operative Progress Note Patient seen and PACU, comfortable, denies complaints, pain well controlled, no acute issues. Still feeling effects of regional block. Review of Systems Review of Systems: All systems reviewed & are unremarkable except as noted in HPI & below Constitutional: as per Subjective / HPI Physical Exam Physical Exam: Right lower extremity physical exam limited secondary to regional block, capillary refill less than 2 seconds, splint clean dry and intact, compartment soft nontender. Constitutional: WD/WN, vitals as above Results & Data ([place]) Vital Signs (Past 12 Hours) Vital Signs Temp Pulse Pulse Resp BP BP Pulse Ox 01/14/20 18:00 98 H 24 127/76 99 01/14/20 17:50 108 H 19 132/79 100 01/14/20 17:43 36.3 C L 98 H 12 132/94 98 01/14/20 12:28 36.9 C 97 H 22 120/80 93 01/14/20 11:25 37.1 C 105 H 18 109/67 93 01/14/20 07:46 37.0 C 104 H 18 123/74 94 (1) Brittany-prosthetic fracture around prosthetic knee Encounter type: initial encounter Laterality: right Qualified Code(s): M97.11XA - Periprosthetic fracture around internal prosthetic right knee joint, initial encounter
[2020-01-14] MEDS ORDERED: ATROPINE SULFATE 0.1 MG/ML 10ML SYR IV PRN (18:09)
--- NOTE | 2020-01-14 18:14 | XRay Report ---
XR ankle LT min 3V routine CLINICAL HISTORY: post op ankle ORIF in PACU COMPARISON: 01/12/2020 DISCUSSION: 3 portable views of left ankle are provided for interpretation. The fine bony detail is o bscured by a plaster cast. The distal fibular fracture has been fixated with a lateral metallic plate and multiple screws. The medial malleolar fracture has been fixated with 2 cannulated screws. The an kle mortise appears intact. IMPRESSION: Internally fixated fractures of the distal tibia and fibula. The ankle mortise appears in tact. ACT 112: Negative or not required by law. Electronically signed by: Srinath Bianchi M.D. 01/14/2020 6:13 PM
[2020-01-14] MEDS ORDERED: HYDROmorphone INJ 0.5 MG/0.5 ML SYR IV PRN (18:40)
[2020-01-14] MEDS ORDERED: ONDANSETRON INJ 2 MG/ML 2 ML VIAL IV PRN (18:40)
[2020-01-14] MEDS ORDERED: NALOXONE HCL 0.4 MG/1 ML VIAL/CARP IV PRN (18:40)
[2020-01-14] MEDS ORDERED: METOCLOPRAMIDE HCL INJ 5 MG/ML 2 ML VIAL IV PRN (18:40)
[2020-01-14] MEDS ORDERED: bisacodyL 10 MG SUPP PR PRN (18:40)
[2020-01-14] MEDS: SODIUM CHLORIDE 0.9% 1000ML 1,000 ML IV SCH (19:03)
[2020-01-14] MEDS: DIGOXIN 0.125 MG TAB PO SCH (19:09)
[2020-01-14] MEDS: SENNA 8.6 MG TAB PO SCH (20:47)
[2020-01-14] MEDS: PRAVASTATIN SOD 20 MG TAB PO SCH (20:47)
[2020-01-14] MEDS: DOCUSATE SODIUM 100 MG CAP PO SCH (20:47)
[2020-01-14] MEDS: TRAZODONE HCL 50 MG TAB PO SCH (20:58)
[2020-01-14] MEDS: CEFAZOLIN 2000MG 2,000 MG/15 ML SYR IV SCH (20:59)
[2020-01-14] MEDS: ACETAMINOPHEN 500 MG TAB PO SCH (20:59)
--- NOTE | 2020-01-14 23:21 | Hospitalist Progress Note ---
Date of Service January 14, 2020 Assessment & Plan (1) Ankle fracture, bimalleolar, closed: Management per Orthopedic Surgery. OK to proceed with surgery. Check vitamin D level. (2) Brittany-prosthetic fracture around prosthetic knee: Management per Orthopedic Surgery. (3) Chest pain: Experienced chest discomfort at home. Serial troponins negative. Seen by Cardiology. No need for further cardiac evaluation. (4) Coronary artery disease: History of microvascular angina. Nuclear stress test was negative for ischemia in 2019. Acute ME ruled out. Seen in consultation by Cardiology. Echo showed mild concentric LVH, LVEF > 70%, no segmental wall motion abnormalities, grade I diastolic dysfunction, aortic sclerosis without significant stenosis, mitral annular calcification without stenosis. No need for additional cardiac evaluation before proceeding with surgery. Continue aspirin, metoprolol, nitrates, statin. (5) Atrial fibrillation: Chronic atrial fibrillation. Continue metoprolol and digoxin for rate control. Warfarin held for anticipated surgery; IV heparin ordered and held this morning at 0600. (6) COPD (chronic obstructive pulmonary disease): Pulmonary status stable. Albuterol PRN. (7) Diabetes mellitus type 2, uncontrolled: DM type 2, usually managed with semaglutide and NovoLog pump. Hgb A1c = 13.5. Pharmacy consulted for glycemic management. FBS today =265. Continue insulin coverage. Ongoing education / support during hospital stay and in clinic. (8) Dyslipidemia: Continue pravastatin. (9) DVT prophylaxis: History of DVT & PE. Warfarin on hold due to anticipated surgery. Received IV heparin preop. Warfarin to be started postop per Ortho. SCD's and KAMRYN's also ordered. May be best to add SQ heparin or enoxaparin until INR therapeutic if OK from surgical perspective. (10) Discharge planning issues: Discharge disposition to be determined. Family Medicine follow-up with Dr. Jaramillo. Admission and Anticipated Discharge Date Admission Date: January 12, 2020 Subjective Recheck for atrial fibrillation, orthopedic injuries, and other problems. Patient seen in their room around 1010. Waiting to go to OR later today. Experiencing ongoing knee and ankle pain; analgesics help. No chest pain or SOB. Review of Systems: Constitutional- no fever. Cardiac- as noted above. Pulmonary- no cough or SOB. GI- no nausea, vomiting, diarrhea, melena, hematochezia. - no urinary symptoms. Otherwise, as noted above. Physical Exam Constitutional: no acute distress Respiratory: no respiratory distress Auscultation: lungs clear to auscultation bilaterally Cardiovascular: Rate/Rhythm: + irregularly irregular Heart Sounds: + murmur (II/ sys murmur LSB) and + cardiac rub; no gallop Vessels: no JVD Extremities: no calf tenderness and no edema Gastrointestinal (Abdomen): normal bowel sounds, soft, nontender, no hepatosplenomegaly Musculoskeletal: Extremities: + extremities abnormal to inspection (immobil izer applied to RLE; left ankle splinted) Skin: no rashes, warm and dry Psychiatric: Orientation: alert and oriented x 3 Results & Data Results & Data ([facility]) Vital Signs (Past 12 Hours) BP Pulse Ox 01/14/20 21:03 96 01/14/20 20:10 89 L 01/14/20 19:30 96 01/14/20 19:09 01/14/20 18:58 97 01/14/20 18:30 96 01/14/20 18:20 97 01/14/20 18:10 92 01/14/20 18:00 99 01/14/20 17:50 100 01/14/20 17:43 98 01/14/20 12:28 120/80 93 01/14/20 11:25 109/67 93 Laboratory Results Laboratory Results - last 24 hr 01/14/20 01/14/20 01/14/20 05:37 05:37 05:37 WBC 6.92 RBC 3.81 L Hgb 11.3 L Hct 33.9 L MCV 89.0 MCH 29.7 MCHC 33.3 RDW Std Deviation 45.0 RDW Coeff of Katrin 13.7 Plt Count 169 MPV 10.7 H PT 12.1 H INR 1.2 H APTT 48.6 H* PTT Ratio 1.7 Sodium 135 L Potassium 3.8 D Chloride 101 Carbon Dioxide 28 Anion Gap 6.0 BUN 13 Creatinine 0.83 Est Cr Clr Drug Dosing 67.8 Est GFR ( Amer) 82.2 Est GFR (Non-Af Amer) 70.9 BUN/Creatinine Ratio 15.6 Glucose 278 H POC Glucose Calcium 8.7 25-OH Vitamin D Total 01/14/20 01/14/20 01/14/20 05:37 09:22 11:33 WBC RBC Hgb Hct MCV MCH MCHC RDW Std Deviation RDW Coeff of Katrin Plt Count MPV PT INR APTT PTT Ratio Sodium Potassium Chloride Carbon Dioxide Anion Gap BUN Creatinine Est Cr Clr Drug Dosing Est GFR ( Amer) Est GFR (Non-Af Amer) BUN/Creatinine Ratio Glucose POC Glucose 265 H 268 H Calcium 25-OH Vitamin D Total 20.5 L 01/14/20 01/14/20 01/14/20 13:03 17:47 20:36 WBC RBC Hgb Hct MCV MCH MCHC RDW Std Deviation RDW Coeff of Katrin Plt Count MPV PT INR APTT PTT Ratio Sodium Potassium Chloride Carbon Dioxide Anion Gap BUN Creatinine Est Cr Clr Drug Dosing Est GFR ( Amer) Est GFR (Non-Af Amer) BUN/Creatinine Ratio Glucose POC Glucose 260 H 200 H 279 H Calcium 25-OH Vitamin D Total (1) Brittany-prosthetic fracture around prosthetic knee Encounter type: initial encounter Laterality: right Qualified Code(s): M97.11XA - Periprosthetic fracture around internal prosthetic right knee joint, initial encounter (2) Chest pain Chest pain type: unspecified Qualified Code(s): R07.9 - Chest pain, unspecified
[2020-01-15] MEDS: INSULIN ASPART 100 UNITS/ML 3 ML PEN SC SCH ×6 (00:30→21:05)
[2020-01-15] MEDS: SODIUM CHLORIDE 0.9% 1000ML 1,000 ML IV SCH (05:06)
[2020-01-15] MEDS: CEFAZOLIN 2000MG 2,000 MG/15 ML SYR IV SCH (05:51)
[2020-01-15] MEDS: ACETAMINOPHEN 500 MG TAB PO SCH ×3 (05:52→21:04)
--- NOTE | 2020-01-15 07:06 | Orthopedic Progress Note ---
Date of Service January 15, 2020 Assessment & Plan (1) Ankle fracture, bimalleolar, closed: POD#1 Status post ORIF left ankle -Ancef x24 -DVT prophylaxis SCDs, teds, warfarin, bridge per medicine in a.m. -Nonweightbearing left lower extremity -Postoperative x-ray demonstrates a well aligned well fixed orthopedic implants anatomic alignment of the fracture site and mortise -A.m. labs-hemoglobin stable at 11.3 this am. Ortho will sign off at this time. F/u with Dr. Carpenter 2 weeks post operatively. Please call [phone] for an appointment. Please contact orthopedics with any questions or concerns, thank you. (2) Brittany-prosthetic fracture around prosthetic knee: Maintain nonweightbearing and knee immobilizer at all times. Ortho will sign off at this time. Admission and Anticipated Discharge Date Admission Date: January 12, 2020 Subjective Patient resting in bed comfortably post day #1 for her left ankle fracture. She is having a moderate amount of pain as block has worn off. She denies complaints, no chest pain, sob, light headedness, dizziness. Review of Systems Review of Systems: All systems reviewed & are unremarkable except as noted in HPI & below Physical Exam Physical Exam: Right knee immobilizer in place. Left ankle spling/dressing is c/d/i. Toes are mobile, sensation and n/v status distally intact. No calf tenderness. Constitutional: + ill appearing; no acute distress Results & Data ([facility]) Vital Signs (Past 12 Hours) Vital Signs Temp Pulse Pulse Resp BP Pulse Ox 01/15/20 03:42 37.2 C 104 H 18 105/64 93 01/15/20 00:50 107 H 01/14/20 23:46 36.8 C 110 H 18 111/71 96 01/14/20 21:03 36.8 C 132 H 20 124/80 96 01/14/20 20:10 36.4 C L 120 H 21 116/72 89 L 01/14/20 19:30 37 C 116 H 20 109/69 96 01/14/20 19:09 96 H Laboratory Results Lab Results 01/12/20 01/12/20 01/12/20 Range/Units 17:20 17:20 17:20 WBC 10.85 H (4.8-10.8) K/uL RBC 4.49 (4.2-5.4) M/uL Hgb 13.6 (12.0-16.0) g/dL Hct 40.8 (37-47) % MCV 90.9 (80-100) fL MCH 30.3 (25-34) pg MCHC 33.3 (32-36) g/dL RDW Std Deviation 44.4 (36.4-46.3) fL RDW Coeff of Katrin 13.4 (11.5-14.5) % Plt Count 259 (130-400) K/uL MPV 11.5 H (7.4-10.4) fL Immature Gran % (Auto) 0.3 % Neut % (Auto) 75.3 % Lymph % (Auto) 15.1 % [place] % (Auto) 7.3 % Eos % (Auto) 1.6 % Baso % (Auto) 0.4 % Immature Gran # (Auto) 0.03 H (0.00-0.02) K/uL Neut # (Auto) 8.18 H (1.4-6.5) K/uL Lymph # (Auto) 1.64 (1.2-3.4) K/uL [place] # (Auto) 0.79 H (0.11-0.59) K/uL Eos # (Auto) 0.17 (0-0.5) K/uL Baso # (Auto) 0.04 (0-0.2) K/uL PT 16.7 H (9.0-12.0) Seconds INR 1.6 H (0.9-1.1) APTT (21.0-31.0) Seconds PTT Ratio Sodium 135 L (136-145) mmol/L Potassium 4.1 (3.5-5.1) mmol/L Chloride 98 (98-107) mmol/L Carbon Dioxide 28 (21-32) mmol/L Anion Gap 9.0 (3-11) BUN 16 (7-18) mg/dl Creatinine 1.03 (0.6-1.2) mg/dl Est Cr Clr Drug Dosing 55.7 ml/min Est GFR ( Amer) 63.8 Est GFR (Non-Af Amer) 55.0 BUN/Creatinine Ratio 15.9 (10-20) Glucose 134 H (70-99) mg/dl POC Glucose (70-99) mg/dl Estimat Average Glucose mg/dl Hemoglobin A1c (4.5-5.6) % Lactate (0.4-2.0) mmol/L Calcium 9.8 (8.5-10.1) mg/dl Magnesium (1.8-2.4) mg/dl Total Bilirubin 0.6 (0.2-1) mg/dl AST 86 H (15-37) U/L ALT 69 (12-78) U/L Alkaline Phosphatase 94 (45-117) U/L Total Creatine Kinase (26-192) U/L Troponin I < 0.015 (0-0.045) ng/ml Total Protein 7.9 (6.4-8.2) gm/dl Albumin 3.4 (3.4-5.0) gm/dl Globulin 4.5 H (2.5-4.0) gm/dl Albumin/Globulin Ratio 0.8 L (0.9-2) Lipase (73-393) U/L 25-OH Vitamin D Total (30-100) ng/ml TSH (0.300-4.500) uIu/ml Urine Color Urine Appearance (Clear) Urine pH (4.5-7.5) Ur Specific [place] (1.000-1.030) Urine Protein (Negative) Urine Glucose (UA) (Negative) Urine Ketones (Negative) Urine Blood (Negative) Urine Nitrite (Negative) Urine Bilirubin (Negative) Urine Urobilinogen (Negative) Ur Leukocyte Esterase (Negative) Urine WBC (Auto) (0-5) /hpf Urine RBC (Auto) (0-4) /hpf U Hyaline Cast (Auto) (0-5) /lpf U Epithel Cells (Auto) (0-5) /lpf Urine Bacteria (Auto) (Negative) Digoxin (0.8-2.0) ng/ml Blood Type Antibody Screen 01/12/20 01/12/20 01/12/20 Range/Units 17:20 20:39 20:39 WBC (4.8-10.8) K/uL RBC (4.2-5.4) M/uL Hgb (12.0-16.0) g/dL Hct (37-47) % MCV (80-100) fL MCH (25-34) pg MCHC (32-36) g/dL RDW Std Deviation (36.4-46.3) fL RDW Coeff of Katrin (11.5-14.5) % Plt Count (130-400) K/uL MPV (7.4-10.4) fL Immature Gran % (Auto) % Neut % (Auto) % Lymph % (Auto) % [place] % (Auto) % Eos % (Auto) % Baso % (Auto) % Immature Gran # (Auto) (0.00-0.02) K/uL Neut # (Auto) (1.4-6.5) K/uL Lymph # (Auto) (1.2-3.4) K/uL [place] # (Auto) (0.11-0.59) K/uL Eos # (Auto) (0-0.5) K/uL Baso # (Auto) (0-0.2) K/uL PT (9.0-12.0) Seconds INR (0.9-1.1) APTT 30.1 (21.0-31.0) Seconds PTT Ratio 1.1 Sodium (136-145) mmol/L Potassium (3.5-5.1) mmol/L Chloride (98-107) mmol/L Carbon Dioxide (21-32) mmol/L Anion Gap (3-11) BUN (7-18) mg/dl Creatinine (0.6-1.2) mg/dl Est Cr Clr Drug Dosing ml/min Est GFR ( Amer) Est GFR (Non-Af Amer) BUN/Creatinine Ratio (10-20) Glucose (70-99) mg/dl POC Glucose (70-99) mg/dl Estimat Average Glucose mg/dl Hemoglobin A1c (4.5-5.6) % Lactate (0.4-2.0) mmol/L Calcium (8.5-10.1) mg/dl Magnesium 1.6 L (1.8-2.4) mg/dl Total Bilirubin (0.2-1) mg/dl AST (15-37) U/L ALT (12-78) U/L Alkaline Phosphatase (45-117) U/L Total Creatine Kinase 42 (26-192) U/L Troponin I < 0.015 (0-0.045) ng/ml Total Protein (6.4-8.2) gm/dl Albumin (3.4-5.0) gm/dl Globulin (2.5-4.0) gm/dl Albumin/Globulin Ratio (0.9-2) Lipase 228 (73-393) U/L 25-OH Vitamin D Total (30-100) ng/ml TSH 3.480 (0.300-4.500) uIu/ml Urine Color Urine Appearance (Clear) Urine pH (4.5-7.5) Ur Specific [place] (1.000-1.030) Urine Protein (Negative) Urine Glucose (UA) (Negative) Urine Ketones (Negative) Urine Blood (Negative) Urine Nitrite (Negative) Urine Bilirubin (Negative) Urine Urobilinogen (Negative) Ur Leukocyte Esterase (Negative) Urine WBC (Auto) (0-5) /hpf Urine RBC (Auto) (0-4) /hpf U Hyaline Cast (Auto) (0-5) /lpf U Epithel Cells (Auto) (0-5) /lpf Urine Bacteria (Auto) (Negative) Digoxin (0.8-2.0) ng/ml Blood Type Antibody Screen 01/12/20 01/12/20 01/12/20 Range/Units 20:39 20:39 20:39 WBC (4.8-10.8) K/uL RBC (4.2-5.4) M/uL Hgb (12.0-16.0) g/dL Hct (37-47) % MCV (80-100) fL MCH (25-34) pg MCHC (32-36) g/dL RDW Std Deviation (36.4-46.3) fL RDW Coeff of Katrin (11.5-14.5) % Plt Count (130-400) K/uL MPV (7.4-10.4) fL Immature Gran % (Auto) % Neut % (Auto) % Lymph % (Auto) % [place] % (Auto) % Eos % (Auto) % Baso % (Auto) % Immature Gran # (Auto) (0.00-0.02) K/uL Neut # (Auto) (1.4-6.5) K/uL Lymph # (Auto) (1.2-3.4) K/uL [place] # (Auto) (0.11-0.59) K/uL Eos # (Auto) (0-0.5) K/uL Baso # (Auto) (0-0.2) K/uL PT (9.0-12.0) Seconds INR (0.9-1.1) APTT (21.0-31.0) Seconds PTT Ratio Sodium (136-145) mmol/L Potassium (3.5-5.1) mmol/L Chloride (98-107) mmol/L Carbon Dioxide (21-32) mmol/L Anion Gap (3-11) BUN (7-18) mg/dl Creatinine (0.6-1.2) mg/dl Est Cr Clr Drug Dosing ml/min Est GFR ( Amer) Est GFR (Non-Af Amer) BUN/Creatinine Ratio (10-20) Glucose (70-99) mg/dl POC Glucose (70-99) mg/dl Estimat Average Glucose 341 mg/dl Hemoglobin A1c 13.5 H (4.5-5.6) % Lactate (0.4-2.0) mmol/L Calcium (8.5-10.1) mg/dl Magnesium (1.8-2.4) mg/dl Total Bilirubin (0.2-1) mg/dl AST (15-37) U/L ALT (12-78) U/L Alkaline Phosphatase (45-117) U/L Total Creatine Kinase (26-192) U/L Troponin I (0-0.045) ng/ml Total Protein (6.4-8.2) gm/dl Albumin (3.4-5.0) gm/dl Globulin (2.5-4.0) gm/dl Albumin/Globulin Ratio (0.9-2) Lipase (73-393) U/L 25-OH Vitamin D Total (30-100) ng/ml TSH (0.300-4.500) uIu/ml Urine Color Urine Appearance (Clear) Urine pH (4.5-7.5) Ur Specific [place] (1.000-1.030) Urine Protein (Negative) Urine Glucose (UA) (Negative) Urine Ketones (Negative) Urine Blood (Negative) Urine Nitrite (Negative) Urine Bilirubin (Negative) Urine Urobilinogen (Negative) Ur Leukocyte Esterase (Negative) Urine WBC (Auto) (0-5) /hpf Urine RBC (Auto) (0-4) /hpf U Hyaline Cast (Auto) (0-5) /lpf U Epithel Cells (Auto) (0-5) /lpf Urine Bacteria (Auto) (Negative) Digoxin 1.0 (0.8-2.0) ng/ml Blood Type AB Positive Antibody Screen NEGATIVE 01/12/20 01/12/20 01/13/20 Range/Units 20:44 22:50 00:10 WBC (4.8-10.8) K/uL RBC (4.2-5.4) M/uL Hgb (12.0-16.0) g/dL Hct (37-47) % MCV (80-100) fL MCH (25-34) pg MCHC (32-36) g/dL RDW Std Deviation (36.4-46.3) fL RDW Coeff of Katrin (11.5-14.5) % Plt Count (130-400) K/uL MPV (7.4-10.4) fL Immature Gran % (Auto) % Neut % (Auto) % Lymph % (Auto) % [place] % (Auto) % Eos % (Auto) % Baso % (Auto) % Immature Gran # (Auto) (0.00-0.02) K/uL Neut # (Auto) (1.4-6.5) K/uL Lymph # (Auto) (1.2-3.4) K/uL [place] # (Auto) (0.11-0.59) K/uL Eos # (Auto) (0-0.5) K/uL Baso # (Auto) (0-0.2) K/uL PT (9.0-12.0) Seconds INR (0.9-1.1) APTT (21.0-31.0) Seconds PTT Ratio Sodium (136-145) mmol/L Potassium (3.5-5.1) mmol/L Chloride (98-107) mmol/L Carbon Dioxide (21-32) mmol/L Anion Gap (3-11) BUN (7-18) mg/dl Creatinine (0.6-1.2) mg/dl Est Cr Clr Drug Dosing ml/min Est GFR ( Amer) Est GFR (Non-Af Amer) BUN/Creatinine Ratio (10-20) Glucose (70-99) mg/dl POC Glucose 104 H (70-99) mg/dl Estimat Average Glucose mg/dl Hemoglobin A1c (4.5-5.6) % Lactate 3.0 H* 1.8 (0.4-2.0) mmol/L Calcium (8.5-10.1) mg/dl Magnesium (1.8-2.4) mg/dl Total Bilirubin (0.2-1) mg/dl AST (15-37) U/L ALT (12-78) U/L Alkaline Phosphatase (45-117) U/L Total Creatine Kinase (26-192) U/L Troponin I (0-0.045) ng/ml Total Protein (6.4-8.2) gm/dl Albumin (3.4-5.0) gm/dl Globulin (2.5-4.0) gm/dl Albumin/Globulin Ratio (0.9-2) Lipase (73-393) U/L 25-OH Vitamin D Total (30-100) ng/ml TSH (0.300-4.500) uIu/ml Urine Color Urine Appearance (Clear) Urine pH (4.5-7.5) Ur Specific [place] (1.000-1.030) Urine Protein (Negative) Urine Glucose (UA) (Negative) Urine Ketones (Negative) Urine Blood (Negative) Urine Nitrite (Negative) Urine Bilirubin (Negative) Urine Urobilinogen (Negative) Ur Leukocyte Esterase (Negative) Urine WBC (Auto) (0-5) /hpf Urine RBC (Auto) (0-4) /hpf U Hyaline Cast (Auto) (0-5) /lpf U Epithel Cells (Auto) (0-5) /lpf Urine Bacteria (Auto) (Negative) Digoxin (0.8-2.0) ng/ml Blood Type Antibody Screen 01/13/20 01/13/20 01/13/20 Range/Units 04:02 05:32 05:32 WBC 10.36 (4.8-10.8) K/uL RBC 3.98 L (4.2-5.4) M/uL Hgb 11.9 L (12.0-16.0) g/dL Hct 35.4 L (37-47) % MCV 88.9 (80-100) fL MCH 29.9 (25-34) pg MCHC 33.6 (32-36) g/dL RDW Std Deviation 44.3 (36.4-46.3) fL RDW Coeff of Katrin 13.6 (11.5-14.5) % Plt Count 214 (130-400) K/uL MPV 10.7 H (7.4-10.4) fL Immature Gran % (Auto) 0.3 % Neut % (Auto) 73.4 % Lymph % (Auto) 18.3 % [place] % (Auto) 6.6 % Eos % (Auto) 1.1 % Baso % (Auto) 0.3 % Immature Gran # (Auto) 0.03 H (0.00-0.02) K/uL Neut # (Auto) 7.61 H (1.4-6.5) K/uL Lymph # (Auto) 1.90 (1.2-3.4) K/uL [place] # (Auto) 0.68 H (0.11-0.59) K/uL Eos # (Auto) 0.11 (0-0.5) K/uL Baso # (Auto) 0.03 (0-0.2) K/uL PT 14.4 H (9.0-12.0) Seconds INR 1.4 H (0.9-1.1) APTT 45.8 H* (21.0-31.0) Seconds PTT Ratio 1.6 Sodium (136-145) mmol/L Potassium (3.5-5.1) mmol/L Chloride (98-107) mmol/L Carbon Dioxide (21-32) mmol/L Anion Gap (3-11) BUN (7-18) mg/dl Creatinine (0.6-1.2) mg/dl Est Cr Clr Drug Dosing ml/min Est GFR ( Amer) Est GFR (Non-Af Amer) BUN/Creatinine Ratio (10-20) Glucose (70-99) mg/dl POC Glucose 137 H (70-99) mg/dl Estimat Average Glucose mg/dl Hemoglobin A1c (4.5-5.6) % Lactate (0.4-2.0) mmol/L Calcium (8.5-10.1) mg/dl Magnesium (1.8-2.4) mg/dl Total Bilirubin (0.2-1) mg/dl AST (15-37) U/L ALT (12-78) U/L Alkaline Phosphatase (45-117) U/L Total Creatine Kinase (26-192) U/L Troponin I (0-0.045) ng/ml Total Protein (6.4-8.2) gm/dl Albumin (3.4-5.0) gm/dl Globulin (2.5-4.0) gm/dl Albumin/Globulin Ratio (0.9-2) Lipase (73-393) U/L 25-OH Vitamin D Total (30-100) ng/ml TSH (0.300-4.500) uIu/ml Urine Color Urine Appearance (Clear) Urine pH (4.5-7.5) Ur Specific [place] (1.000-1.030) Urine Protein (Negative) Urine Glucose (UA) (Negative) Urine Ketones (Negative) Urine Blood (Negative) Urine Nitrite (Negative) Urine Bilirubin (Negative) Urine Urobilinogen (Negative) Ur Leukocyte Esterase (Negative) Urine WBC (Auto) (0-5) /hpf Urine RBC (Auto) (0-4) /hpf U Hyaline Cast (Auto) (0-5) /lpf U Epithel Cells (Auto) (0-5) /lpf Urine Bacteria (Auto) (Negative) Digoxin (0.8-2.0) ng/ml Blood Type Antibody Screen 01/13/20 01/13/20 01/13/20 Range/Units 05:32 07:39 09:45 WBC (4.8-10.8) K/uL RBC (4.2-5.4) M/uL Hgb (12.0-16.0) g/dL Hct (37-47) % MCV (80-100) fL MCH (25-34) pg MCHC (32-36) g/dL RDW Std Deviation (36.4-46.3) fL RDW Coeff of Katrin (11.5-14.5) % Plt Count (130-400) K/uL MPV (7.4-10.4) fL Immature Gran % (Auto) % Neut % (Auto) % Lymph % (Auto) % [place] % (Auto) % Eos % (Auto) % Baso % (Auto) % Immature Gran # (Auto) (0.00-0.02) K/uL Neut # (Auto) (1.4-6.5) K/uL Lymph # (Auto) (1.2-3.4) K/uL [place] # (Auto) (0.11-0.59) K/uL Eos # (Auto) (0-0.5) K/uL Baso # (Auto) (0-0.2) K/uL PT (9.0-12.0) Seconds INR (0.9-1.1) APTT (21.0-31.0) Seconds PTT Ratio Sodium 136 (136-145) mmol/L Potassium 4.5 (3.5-5.1) mmol/L Chloride 100 (98-107) mmol/L Carbon Dioxide 31 (21-32) mmol/L Anion Gap 5.0 (3-11) BUN 19 H (7-18) mg/dl Creatinine 1.02 (0.6-1.2) mg/dl Est Cr Clr Drug Dosing 55.4 ml/min Est GFR ( Amer) 64.1 Est GFR (Non-Af Amer) 55.3 BUN/Creatinine Ratio 18.6 (10-20) Glucose 132 H (70-99) mg/dl POC Glucose 155 H (70-99) mg/dl Estimat Average Glucose mg/dl Hemoglobin A1c (4.5-5.6) % Lactate (0.4-2.0) mmol/L Calcium 9.0 (8.5-10.1) mg/dl Magnesium 2.2 (1.8-2.4) mg/dl Total Bilirubin (0.2-1) mg/dl AST (15-37) U/L ALT (12-78) U/L Alkaline Phosphatase (45-117) U/L Total Creatine Kinase (26-192) U/L Troponin I < 0.015 (0-0.045) ng/ml Total Protein (6.4-8.2) gm/dl Albumin (3.4-5.0) gm/dl Globulin (2.5-4.0) gm/dl Albumin/Globulin Ratio (0.9-2) Lipase (73-393) U/L 25-OH Vitamin D Total (30-100) ng/ml TSH (0.300-4.500) uIu/ml Urine Color Dark Yellow Urine Appearance Clear (Clear) Urine pH 5.0 (4.5-7.5) Ur Specific [place] 1.024 (1.000-1.030) Urine Protein Negative (Negative) Urine Glucose (UA) Negative (Negative) Urine Ketones Negative (Negative) Urine Blood Trace H (Negative) Urine Nitrite Negative (Negative) Urine Bilirubin Negative (Negative) Urine Urobilinogen Negative (Negative) Ur Leukocyte Esterase Negative (Negative) Urine WBC (Auto) 5-10 H (0-5) /hpf Urine RBC (Auto) 0-4 (0-4) /hpf U Hyaline Cast (Auto) 1-5 (0-5) /lpf U Epithel Cells (Auto) 20-30 H (0-5) /lpf Urine Bacteria (Auto) Negative (Negative) Digoxin (0.8-2.0) ng/ml Blood Type Antibody Screen 01/13/20 01/13/20 01/13/20 Range/Units 11:27 11:27 16:18 WBC (4.8-10.8) K/uL RBC (4.2-5.4) M/uL Hgb (12.0-16.0) g/dL Hct (37-47) % MCV (80-100) fL MCH (25-34) pg MCHC (32-36) g/dL RDW Std Deviation (36.4-46.3) fL RDW Coeff of Katrin (11.5-14.5) % Plt Count (130-400) K/uL MPV (7.4-10.4) fL Immature Gran % (Auto) % Neut % (Auto) % Lymph % (Auto) % [place] % (Auto) % Eos % (Auto) % Baso % (Auto) % Immature Gran # (Auto) (0.00-0.02) K/uL Neut # (Auto) (1.4-6.5) K/uL Lymph # (Auto) (1.2-3.4) K/uL [place] # (Auto) (0.11-0.59) K/uL Eos # (Auto) (0-0.5) K/uL Baso # (Auto) (0-0.2) K/uL PT (9.0-12.0) Seconds INR (0.9-1.1) APTT 51.1 H* (21.0-31.0) Seconds PTT Ratio 1.8 Sodium (136-145) mmol/L Potassium (3.5-5.1) mmol/L Chloride (98-107) mmol/L Carbon Dioxide (21-32) mmol/L Anion Gap (3-11) BUN (7-18) mg/dl Creatinine (0.6-1.2) mg/dl Est Cr Clr Drug Dosing ml/min Est GFR ( Amer) Est GFR (Non-Af Amer) BUN/Creatinine Ratio (10-20) Glucose (70-99) mg/dl POC Glucose 126 H 179 H (70-99) mg/dl Estimat Average Glucose mg/dl Hemoglobin A1c (4.5-5.6) % Lactate (0.4-2.0) mmol/L Calcium (8.5-10.1) mg/dl Magnesium (1.8-2.4) mg/dl Total Bilirubin (0.2-1) mg/dl AST (15-37) U/L ALT (12-78) U/L Alkaline Phosphatase (45-117) U/L Total Creatine Kinase (26-192) U/L Troponin I (0-0.045) ng/ml Total Protein (6.4-8.2) gm/dl Albumin (3.4-5.0) gm/dl Globulin (2.5-4.0) gm/dl Albumin/Globulin Ratio (0.9-2) Lipase (73-393) U/L 25-OH Vitamin D Total (30-100) ng/ml TSH (0.300-4.500) uIu/ml Urine Color Urine Appearance (Clear) Urine pH (4.5-7.5) Ur Specific [place] (1.000-1.030) Urine Protein (Negative) Urine Glucose (UA) (Negative) Urine Ketones (Negative) Urine Blood (Negative) Urine Nitrite (Negative) Urine Bilirubin (Negative) Urine Urobilinogen (Negative) Ur Leukocyte Esterase (Negative) Urine WBC (Auto) (0-5) /hpf Urine RBC (Auto) (0-4) /hpf U Hyaline Cast (Auto) (0-5) /lpf U Epithel Cells (Auto) (0-5) /lpf Urine Bacteria (Auto) (Negative) Digoxin (0.8-2.0) ng/ml Blood Type Antibody Screen 01/13/20 01/14/20 01/14/20 Range/Units 19:51 05:37 05:37 WBC 6.92 (4.8-10.8) K/uL RBC 3.81 L (4.2-5.4) M/uL Hgb 11.3 L (12.0-16.0) g/dL Hct 33.9 L (37-47) % MCV 89.0 (80-100) fL MCH 29.7 (25-34) pg MCHC 33.3 (32-36) g/dL RDW Std Deviation 45.0 (36.4-46.3) fL RDW Coeff of Katrin 13.7 (11.5-14.5) % Plt Count 169 (130-400) K/uL MPV 10.7 H (7.4-10.4) fL Immature Gran % (Auto) % Neut % (Auto) % Lymph % (Auto) % [place] % (Auto) % Eos % (Auto) % Baso % (Auto) % Immature Gran # (Auto) (0.00-0.02) K/uL Neut # (Auto) (1.4-6.5) K/uL Lymph # (Auto) (1.2-3.4) K/uL [place] # (Auto) (0.11-0.59) K/uL Eos # (Auto) (0-0.5) K/uL Baso # (Auto) (0-0.2) K/uL PT 12.1 H (9.0-12.0) Seconds INR 1.2 H (0.9-1.1) APTT 48.6 H* (21.0-31.0) Seconds PTT Ratio 1.7 Sodium (136-145) mmol/L Potassium (3.5-5.1) mmol/L Chloride (98-107) mmol/L Carbon Dioxide (21-32) mmol/L Anion Gap (3-11) BUN (7-18) mg/dl Creatinine (0.6-1.2) mg/dl Est Cr Clr Drug Dosing ml/min Est GFR ( Amer) Est GFR (Non-Af Amer) BUN/Creatinine Ratio (10-20) Glucose (70-99) mg/dl POC Glucose 273 H (70-99) mg/dl Estimat Average Glucose mg/dl Hemoglobin A1c (4.5-5.6) % Lactate (0.4-2.0) mmol/L Calcium (8.5-10.1) mg/dl Magnesium (1.8-2.4) mg/dl Total Bilirubin (0.2-1) mg/dl AST (15-37) U/L ALT (12-78) U/L Alkaline Phosphatase (45-117) U/L Total Creatine Kinase (26-192) U/L Troponin I (0-0.045) ng/ml Total Protein (6.4-8.2) gm/dl Albumin (3.4-5.0) gm/dl Globulin (2.5-4.0) gm/dl Albumin/Globulin Ratio (0.9-2) Lipase (73-393) U/L 25-OH Vitamin D Total (30-100) ng/ml TSH (0.300-4.500) uIu/ml Urine Color Urine Appearance (Clear) Urine pH (4.5-7.5) Ur Specific [place] (1.000-1.030) Urine Protein (Negative) Urine Glucose (UA) (Negative) Urine Ketones (Negative) Urine Blood (Negative) Urine Nitrite (Negative) Urine Bilirubin (Negative) Urine Urobilinogen (Negative) Ur Leukocyte Esterase (Negative) Urine WBC (Auto) (0-5) /hpf Urine RBC (Auto) (0-4) /hpf U Hyaline Cast (Auto) (0-5) /lpf U Epithel Cells (Auto) (0-5) /lpf Urine Bacteria (Auto) (Negative) Digoxin (0.8-2.0) ng/ml Blood Type Antibody Screen 01/14/20 01/14/20 01/14/20 Range/Units 05:37 05:37 09:22 WBC (4.8-10.8) K/uL RBC (4.2-5.4) M/uL Hgb (12.0-16.0) g/dL Hct (37-47) % MCV (80-100) fL MCH (25-34) pg MCHC (32-36) g/dL RDW Std Deviation (36.4-46.3) fL RDW Coeff of [place] (11.5-14.5) % Plt Count (130-400) K/uL MPV (7.4-10.4) fL Immature Gran % (Auto) % Neut % (Auto) % Lymph % (Auto) % [place] % (Auto) % Eos % (Auto) % Baso % (Auto) % Immature Gran # (Auto) (0.00-0.02) K/uL Neut # (Auto) (1.4-6.5) K/uL Lymph # (Auto) (1.2-3.4) K/uL [place] # (Auto) (0.11-0.59) K/uL Eos # (Auto) (0-0.5) K/uL Baso # (Auto) (0-0.2) K/uL PT (9.0-12.0) Seconds INR (0.9-1.1) APTT (21.0-31.0) Seconds PTT Ratio Sodium 135 L (136-145) mmol/L Potassium 3.8 D (3.5-5.1) mmol/L Chloride 101 (98-107) mmol/L Carbon Dioxide 28 (21-32) mmol/L Anion Gap 6.0 (3-11) BUN 13 (7-18) mg/dl Creatinine 0.83 (0.6-1.2) mg/dl Est Cr Clr Drug Dosing 67.8 ml/min Est GFR ( Amer) 82.2 Est GFR (Non-Af Amer) 70.9 BUN/Creatinine Ratio 15.6 (10-20) Glucose 278 H (70-99) mg/dl POC Glucose 265 H (70-99) mg/dl Estimat Average Glucose mg/dl Hemoglobin A1c (4.5-5.6) % Lactate (0.4-2.0) mmol/L Calcium 8.7 (8.5-10.1) mg/dl Magnesium (1.8-2.4) mg/dl Total Bilirubin (0.2-1) mg/dl AST (15-37) U/L ALT (12-78) U/L Alkaline Phosphatase (45-117) U/L Total Creatine Kinase (26-192) U/L Troponin I (0-0.045) ng/ml Total Protein (6.4-8.2) gm/dl Albumin (3.4-5.0) gm/dl Globulin (2.5-4.0) gm/dl Albumin/Globulin Ratio (0.9-2) Lipase (73-393) U/L 25-OH Vitamin D Total 20.5 L (30-100) ng/ml TSH (0.300-4.500) uIu/ml Urine Color Urine Appearance (Clear) Urine pH (4.5-7.5) Ur Specific [place] (1.000-1.030) Urine Protein (Negative) Urine Glucose (UA) (Negative) Urine Ketones (Negative) Urine Blood (Negative) Urine Nitrite (Negative) Urine Bilirubin (Negative) Urine Urobilinogen (Negative) Ur Leukocyte Esterase (Negative) Urine WBC (Auto) (0-5) /hpf Urine RBC (Auto) (0-4) /hpf U Hyaline Cast (Auto) (0-5) /lpf U Epithel Cells (Auto) (0-5) /lpf Urine Bacteria (Auto) (Negative) Digoxin (0.8-2.0) ng/ml Blood Type Antibody Screen 01/14/20 01/14/20 01/14/20 Range/Units 11:33 13:03 17:47 WBC (4.8-10.8) K/uL RBC (4.2-5.4) M/uL Hgb (12.0-16.0) g/dL Hct (37-47) % MCV (80-100) fL MCH (25-34) pg MCHC (32-36) g/dL RDW Std Deviation (36.4-46.3) fL RDW Coeff of [place] (11.5-14.5) % Plt Count (130-400) K/uL MPV (7.4-10.4) fL Immature Gran % (Auto) % Neut % (Auto) % Lymph % (Auto) % [place] % (Auto) % Eos % (Auto) % Baso % (Auto) % Immature Gran # (Auto) (0.00-0.02) K/uL Neut # (Auto) (1.4-6.5) K/uL Lymph # (Auto) (1.2-3.4) K/uL [place] # (Auto) (0.11-0.59) K/uL Eos # (Auto) (0-0.5) K/uL Baso # (Auto) (0-0.2) K/uL PT (9.0-12.0) Seconds INR (0.9-1.1) APTT (21.0-31.0) Seconds PTT Ratio Sodium (136-145) mmol/L Potassium (3.5-5.1) mmol/L Chloride (98-107) mmol/L Carbon Dioxide (21-32) mmol/L Anion Gap (3-11) BUN (7-18) mg/dl Creatinine (0.6-1.2) mg/dl Est Cr Clr Drug Dosing ml/min Est GFR ( Amer) Est GFR (Non-Af Amer) BUN/Creatinine Ratio (10-20) Glucose (70-99) mg/dl POC Glucose 268 H 260 H 200 H (70-99) mg/dl Estimat Average Glucose mg/dl Hemoglobin A1c (4.5-5.6) % Lactate (0.4-2.0) mmol/L Calcium (8.5-10.1) mg/dl Magnesium (1.8-2.4) mg/dl Total Bilirubin (0.2-1) mg/dl AST (15-37) U/L ALT (12-78) U/L Alkaline Phosphatase (45-117) U/L Total Creatine Kinase (26-192) U/L Troponin I (0-0.045) ng/ml Total Protein (6.4-8.2) gm/dl Albumin (3.4-5.0) gm/dl Globulin (2.5-4.0) gm/dl Albumin/Globulin Ratio (0.9-2) Lipase (73-393) U/L 25-OH Vitamin D Total (30-100) ng/ml TSH (0.300-4.500) uIu/ml Urine Color Urine Appearance (Clear) Urine pH (4.5-7.5) Ur Specific [place] (1.000-1.030) Urine Protein (Negative) Urine Glucose (UA) (Negative) Urine Ketones (Negative) Urine Blood (Negative) Urine Nitrite (Negative) Urine Bilirubin (Negative) Urine Urobilinogen (Negative) Ur Leukocyte Esterase (Negative) Urine WBC (Auto) (0-5) /hpf Urine RBC (Auto) (0-4) /hpf U Hyaline Cast (Auto) (0-5) /lpf U Epithel Cells (Auto) (0-5) /lpf Urine Bacteria (Auto) (Negative) Digoxin (0.8-2.0) ng/ml Blood Type Antibody Screen 01/14/20 01/15/20 01/15/20 Range/Units 20:36 00:08 04:51 WBC (4.8-10.8) K/uL RBC (4.2-5.4) M/uL Hgb (12.0-16.0) g/dL Hct (37-47) % MCV (80-100) fL MCH (25-34) pg MCHC (32-36) g/dL RDW Std Deviation (36.4-46.3) fL RDW Coeff of [place] (11.5-14.5) % Plt Count (130-400) K/uL MPV (7.4-10.4) fL Immature Gran % (Auto) % Neut % (Auto) % Lymph % (Auto) % [place] % (Auto) % Eos % (Auto) % Baso % (Auto) % Immature Gran # (Auto) (0.00-0.02) K/uL Neut # (Auto) (1.4-6.5) K/uL Lymph # (Auto) (1.2-3.4) K/uL [place] # (Auto) (0.11-0.59) K/uL Eos # (Auto) (0-0.5) K/uL Baso # (Auto) (0-0.2) K/uL PT (9.0-12.0) Seconds INR (0.9-1.1) APTT (21.0-31.0) Seconds PTT Ratio Sodium (136-145) mmol/L Potassium (3.5-5.1) mmol/L Chloride (98-107) mmol/L Carbon Dioxide (21-32) mmol/L Anion Gap (3-11) BUN (7-18) mg/dl Creatinine (0.6-1.2) mg/dl Est Cr Clr Drug Dosing ml/min Est GFR ( Amer) Est GFR (Non-Af Amer) BUN/Creatinine Ratio (10-20) Glucose (70-99) mg/dl POC Glucose 279 H 246 H 213 H (70-99) mg/dl Estimat Average Glucose mg/dl Hemoglobin A1c (4.5-5.6) % Lactate (0.4-2.0) mmol/L Calcium (8.5-10.1) mg/dl Magnesium (1.8-2.4) mg/dl Total Bilirubin (0.2-1) mg/dl AST (15-37) U/L ALT (12-78) U/L Alkaline Phosphatase (45-117) U/L Total Creatine Kinase (26-192) U/L Troponin I (0-0.045) ng/ml Total Protein (6.4-8.2) gm/dl Albumin (3.4-5.0) gm/dl Globulin (2.5-4.0) gm/dl Albumin/Globulin Ratio (0.9-2) Lipase (73-393) U/L 25-OH Vitamin D Total (30-100) ng/ml TSH (0.300-4.500) uIu/ml Urine Color Urine Appearance (Clear) Urine pH (4.5-7.5) Ur Specific [place] (1.000-1.030) Urine Protein (Negative) Urine Glucose (UA) (Negative) Urine Ketones (Negative) Urine Blood (Negative) Urine Nitrite (Negative) Urine Bilirubin (Negative) Urine Urobilinogen (Negative) Ur Leukocyte Esterase (Negative) Urine WBC (Auto) (0-5) /hpf Urine RBC (Auto) (0-4) /hpf U Hyaline Cast (Auto) (0-5) /lpf U Epithel Cells (Auto) (0-5) /lpf Urine Bacteria (Auto) (Negative) Digoxin (0.8-2.0) ng/ml Blood Type Antibody Screen (1) Brittany-prosthetic fracture around prosthetic knee Encounter type: initial encounter Laterality: right Qualified Code(s): M97.11XA - Periprosthetic fracture around internal prosthetic right knee joint, initial encounter
--- NOTE | 2020-01-15 08:23 | Anesthesiology Progress Note ---
Date of Service January 15, 2020 Anesthesia Post Procedure Vital Signs Vital Signs: Temp Pulse Pulse Pulse Pulse Resp BP 01/15/20 08:02 36.6 C 106 H 20 104/68 01/15/20 07:26 117 H 01/15/20 03:42 37.2 C 104 H 18 105/64 01/15/20 00:50 107 H 01/14/20 23:46 36.8 C 110 H 18 111/71 01/14/20 21:03 36.8 C 132 H 20 124/80 01/14/20 20:10 36.4 C L 120 H 21 116/72 01/14/20 19:30 37 C 116 H 20 109/69 01/14/20 19:09 96 H 01/14/20 18:58 36.8 C 98 H 16 131/85 01/14/20 18:30 93 H 19 116/72 01/14/20 18:20 93 H 18 113/67 01/14/20 18:10 36.6 C 90 21 123/64 01/14/20 18:00 98 H 24 127/76 01/14/20 17:50 108 H 19 132/79 01/14/20 17:43 36.3 C L 98 H 12 132/94 01/14/20 12:28 36.9 C 97 H 22 01/14/20 11:25 37.1 C 105 H 18 BP Pulse Ox 01/15/20 08:02 92 01/15/20 07:26 01/15/20 03:42 93 01/15/20 00:50 01/14/20 23:46 96 01/14/20 21:03 96 01/14/20 20:10 89 L 01/14/20 19:30 96 01/14/20 19:09 01/14/20 18:58 97 01/14/20 18:30 96 01/14/20 18:20 97 01/14/20 18:10 92 01/14/20 18:00 99 01/14/20 17:50 100 01/14/20 17:43 98 01/14/20 12:28 120/80 93 01/14/20 11:25 109/67 93 Pain Intensity Left Lower Leg: Pain Intensity: 4 Right Knee: Pain Intensity: 8 Notes Mental Status: alert / awake / arousable and participated in evaluation Nausea / Vomiting: adequately controlled Pain: adequately controlled Airway Patency, RR, SpO2: stable & adequate BP & HR: stable & adequate Hydration State: stable & adequate Anesthetic Complications: Pt Satisfied with anesthetic care
[2020-01-15 08:33] LABS: Hematocrit (blood only) 31.2 % (37-47); Hemoglobin 10.2 g/dL (12.0-16.0); INR 1.1 (0.9-1.1); Mean Corpuscular Hemoglobin 29.7 pg (25-34); Mean Corpuscular Hgb Conc 32.7 g/dL (32-36); Mean Platelet Volume 10.8 fL (7.4-10.4); Platelet Count 166 K/uL (130-400); Prothrombin Time 11.5 Seconds (9.0-12.0); RDW Standard Deviation 46.3 fL (36.4-46.3); Red Blood Count 3.43 M/uL (4.2-5.4); White Blood Count 9.57 K/uL (4.8-10.8)
[2020-01-15] MEDS: DOCUSATE SODIUM 100 MG CAP PO SCH ×2 (08:47→20:50)
[2020-01-15] MEDS: LETROZOLE 2.5 MG TAB PO SCH (08:47)
[2020-01-15] MEDS: ISOSORBIDE MONO EXTENDED REL 30 MG TABCR PO SCH (08:47)
[2020-01-15] MEDS: MULTIVITAMIN TAB PO SCH (08:47)
[2020-01-15] MEDS: METOPROLOL SUCC 25MG EXT REL TAB PO SCH (08:47)
[2020-01-15 08:48] LABS: BUN Creatinine Ratio 13.8 (10-20); Calcium 8.7 mg/dl (8.5-10.1); Creatinine Clr Calc Pharmacy 66.2 ml/min; Est GFR (African American) 77.7
[2020-01-15] MEDS: FLUTICASONE PROPIONATE NA SPR 16 GM BTL SCH (08:48)
[2020-01-15] MEDS: INSULIN GLARGINE 100 UNIT/ML VIAL SC SCH ×2 (08:55→08:59)
[2020-01-15] MEDS: PREGABALIN 150 MG CAP PO SCH ×2 (08:55→21:05)
[2020-01-15] MEDS ORDERED: ENOXAPARIN INJ 40 MG/0.4 ML SYR SQ SCH (09:00)
[2020-01-15] MEDS: OXYCODONE HCL IR 5 MG TAB (IMMEDIATE RELEASE) PO PRN ×3 (09:09→22:31)
--- NOTE | 2020-01-15 10:56 | Cardiology Progress Note ---
Date of Service January 15, 2020 Assessment & Plan (1) Palpitations: The patient denies experiencing any chest pain recently and clearly states that she took the nitro for feeling her heart racing. There are no new wall motion abnormalities on echocardiogram. Her EKG is unchanged. She has not had any chest pain in quite some time and cannot remember the last time she took a nitroglycerin. She had a nuclear stress test in December 2018 which her navigation officer read as normal. I do not see any component of active coronary ischemia at this time. (2) Preop cardiovascular exam: Tolerated procedure well from a cardiac standpoint. (3) Microvascular angina: Chronic, stable Continue metoprolol and Imdur as an inpatient (4) Chronic a-fib: Rates running a little high but considering that she is in postoperative pain will allow some permissive tachycardia at this time especially in the setting of relative hypotension. She has been placed on Lovenox and her Coumadin is to be restarted as well. Continue to monitor on telemetry for now Subjective Patient seen and examined, chart reviewed. Postop day #1 states that her knee is still giving her the most significant pain but ankle pain is relatively well controlled. Denies any cardiac complaints of chest pain, shortness of breath, palpitations, lightheadedness, dizziness or syncope. Telemetry reviewed: Atrial fibrillation in the 100s to 110s Review of Systems Review of Systems: All systems reviewed & are unremarkable except as noted in HPI & below Physical Exam Physical Exam: General: Awake, alert and oriented x 3. No acute distress. HEENT: Normocephalic, atraumatic. Pupils equal, round and reactive to light and accommodation. Extraocular muscles are intact. Anicteric sclera. Moist mucous membranes. Neck: No JVD. No bruit. Cardiovascular: irregularly irregular, unable to appreciate murmur, rub or gallop. Pulmonary: Clear to auscultation bilaterally. No rales, rhonchi, or wheezing. Abdomen: Bowel sounds x 4, soft. No rebound, guarding or tenderness. No organomegaly. Extremities: No clubbing, cyanosis or edema. +2 pedal pulses bilaterally. Skin: Warm and dry. Results & Data Vital Signs (Past 12 Hours) Vital Signs Temp Pulse Pulse Resp BP Pulse Ox 01/15/20 08:02 36.6 C 106 H 20 104/68 92 01/15/20 07:26 117 H 01/15/20 03:42 37.2 C 104 H 18 105/64 93 01/15/20 00:50 107 H 01/14/20 23:46 36.8 C 110 H 18 111/71 96
--- NOTE | 2020-01-15 13:28 | Hospitalist Progress Note ---
Date of Service January 15, 2020 Assessment & Plan (1) Ankle fracture, bimalleolar, closed: ORIF performed by Dr. Carpenter 01/14/20. POD # 1. Ortho instructions: VTE prophylaxis with TEDS, SCD's, resumption of wafarin +/- bridge. Nonweightbearing LLE. Nonweightbearing and knee immobilizer RLE at all times. Follow-up with Dr. Carpenter 2 weeks postop. Vitamin D level = 20.5. (2) Brittany-prosthetic fracture around prosthetic knee: Nonsurgical management per Orthopedic Surgery. Ortho instructions: VTE prophylaxis with TEDS, SCD's, resumption of wafarin +/- bridge. Nonweightbearing and knee immobilizer RLE at all times. Follow-up with Dr. Carpenter. (3) Chest pain: Experienced chest discomfort at home. Serial troponins negative. Seen by Cardiology. No need for further cardiac evaluation. (4) Coronary artery disease: History of microvascular angina. Nuclear stress test was negative for ischemia in 2019. Acute LA ruled out. Seen in consultation by Cardiology. Echo showed mild concentric LVH, LVEF > 70%, no segmental wall motion abnormalities, grade I diastolic dysfunction, aortic sclerosis without significant stenosis, mitral annular calcification without stenosis. No need for additional cardiac evaluation before proceeding with surgery. Continue aspirin, metoprolol, nitrates, statin. (5) Atrial fibrillation: Chronic atrial fibrillation. Continue metoprolol and digoxin for rate control. Warfarin held for surgery; received IV heparin preop. Resuming warfarin postop. (6) COPD (chronic obstructive pulmonary disease): Pulmonary status stable. Albuterol PRN. (7) Diabetes mellitus type 2, uncontrolled: DM type 2, usually managed with semaglutide and NovoLog pump. Hgb A1c = 13.5. Pharmacy consulted for glycemic management. FBS today =265. Continue insulin coverage. Ongoing education / support during hospital stay and in clinic. (8) Dyslipidemia: Continue pravastatin. (9) DVT prophylaxis: History of DVT & PE. Warfarin held preop and received IV heparin. Warfarin to be started postop per Ortho. SCD's and KAMRYN's also ordered. Add SQ enoxaparin until INR therapeutic if OK from surgical perspective. (Probably more risk than benefit bridging with therapeutic dosing of anticoagulation, so will use prophylactic dose.) (10) Discharge planning issues: Discharge disposition to be determined. Family Medicine follow-up with Dr. Jaramillo. Admission and Anticipated Discharge Date Admission Date: January 12, 2020 Subjective Recheck for atrial fibrillation, orthopedic injuries, and other problems. Patient seen in their room around 1000. Having some postop pain. Otherwise, doing well. No chest pain or SOB. Review of Systems: Constitutional- no fever. Cardiac- as noted above. Pulmonary- no cough or SOB. GI- no nausea, vomiting, diarrhea, melena, hematochezia. - Cisneros cath. Otherwise, as noted above. Physical Exam Constitutional: no acute distress Respiratory: no respiratory distress Auscultation: lungs clear to auscultation bilaterally Cardiovascular: Rate/Rhythm: + irregularly irregular Heart Sounds: + murmur (II/ sys murmur LSB) and + cardiac rub; no gallop Vessels: no JVD Extremities: no calf tenderness and no edema Gastrointestinal (Abdomen): normal bowel sounds, soft, nontender, no hepatosplenomegaly Musculoskeletal: Extremities: + extremities abnormal to inspection (immo bilizer applied to RLE; left ankle splinted) Skin: no rashes, warm and dry Psychiatric: Orientation: alert and oriented x 3 Results & Data Results & Data ([facility]) Vital Signs (Past 12 Hours) Vital Signs Temp Pulse Pulse Resp BP Pulse Ox 01/15/20 10:54 37.0 C 94 H 20 98/66 L 93 01/15/20 08:02 36.6 C 106 H 20 104/68 92 01/15/20 07:26 117 H 01/15/20 03:42 37.2 C 104 H 18 105/64 93 Laboratory Results Laboratory Results - last 24 hr 01/14/20 01/14/20 01/14/20 05:37 17:47 20:36 WBC RBC Hgb Hct MCV MCH MCHC RDW Std Deviation RDW Coeff of Katrin Plt Count MPV PT INR Sodium Potassium Chloride Carbon Dioxide Anion Gap BUN Creatinine Est Cr Clr Drug Dosing Est GFR ( Amer) Est GFR (Non-Af Amer) BUN/Creatinine Ratio Glucose POC Glucose 200 H 279 H Calcium 25-OH Vitamin D Total 20.5 L 01/15/20 01/15/20 01/15/20 00:08 04:51 07:33 WBC RBC Hgb Hct MCV MCH MCHC RDW Std Deviation RDW Coeff of Katrin Plt Count MPV PT INR Sodium Potassium Chloride Carbon Dioxide Anion Gap BUN Creatinine Est Cr Clr Drug Dosing Est GFR ( Amer) Est GFR (Non-Af Amer) BUN/Creatinine Ratio Glucose POC Glucose 246 H 213 H 256 H Calcium 25-OH Vitamin D Total 01/15/20 01/15/20 01/15/20 07:59 07:59 07:59 WBC 9.57 RBC 3.43 L Hgb 10.2 L Hct 31.2 L MCV 91.0 MCH 29.7 MCHC 32.7 RDW Std Deviation 46.3 RDW Coeff of Katrin 14.0 Plt Count 166 MPV 10.8 H PT 11.5 INR 1.1 Sodium 135 L Potassium 4.0 Chloride 103 Carbon Dioxide 26 Anion Gap 7.0 BUN 12 Creatinine 0.87 Est Cr Clr Drug Dosing 66.2 Est GFR ( Amer) 77.7 Est GFR (Non-Af Amer) 67.0 BUN/Creatinine Ratio 13.8 Glucose 214 H POC Glucose Calcium 8.7 25-OH Vitamin D Total 01/15/20 11:34 WBC RBC Hgb Hct MCV MCH MCHC RDW Std Deviation RDW Coeff of Katrin Plt Count MPV PT INR Sodium Potassium Chloride Carbon Dioxide Anion Gap BUN Creatinine Est Cr Clr Drug Dosing Est GFR ( Amer) Est GFR (Non-Af Amer) BUN/Creatinine Ratio Glucose POC Glucose 235 H Calcium 25-OH Vitamin D Total (1) Brittany-prosthetic fracture around prosthetic knee Encounter type: initial encounter Laterality: right Qualified Code(s): M97.11XA - Periprosthetic fracture around internal prosthetic right knee joint, initial encounter (2) Chest pain Chest pain type: unspecified Qualified Code(s): R07.9 - Chest pain, unspecified
--- NOTE | 2020-01-15 13:47 | Pharmacy Report ---
Pharmacy Glycemic Short Note 2 - Date of Service January 15, 2020 - Glycemic Short BSG Results (Last 24 hours): 01/14/20 01/14/20 01/15/20 17:47 20:36 00:08 Glucose POC Glucose 200 H 279 H 246 H 01/15/20 01/15/20 01/15/20 04:51 07:33 07:59 Glucose 214 H POC Glucose 213 H 256 H 01/15/20 11:34 Glucose POC Glucose 235 H ASSESSMENT: * 70 yo F admitted secondary to chest pain and fall on 01/12/2020 found to have displaced fracture of her right distal femoral metaphysis and left tib-fib fracture. Patient is tentatively scheduled for OR on 01/14/2020. * A1c of 13.5% shows severe sub-optimal control of diabetes as an outpatient. Outpatient medications and pump settings can be seen above. * Spoke with CDE who states patient admits to missing bolus doses sometimes...BG values are usually ~ 220 at home, sometimes higher. After speaking with patient, RN, and CDE, belive it would be best to manage this patient with basal-bolus insulin injections perioperatively given changing stressors and PO intake surrounding surgery. All are agreeable. Explained that we will work with patient to ensure she is happy with diabetes management while inpatient. * Patient's BSGs have been very well controlled since admission: 104 mg/dL last night, 137-155 mg/dL this morning. Believe this is secondary to patient's decreased appetite and poor PO intake over the past few days. Patient will be ordered a Carb Consistent diet with lunch today so will transition patient basal regimen with lunch today. Will overlap basal insulin with insulin pump for ~ 2 hours to ensure Lantus is working prior to removing pump. Patient and RN were instructed to bolus through the pump for lunchtime meal today. Novolog insulin will start with dinner meal after pump is removed * Plan to transition patient to once daily Lantus in the morning which will allow for an easier transition back on to the pump prior to patient discharge. 01/13: * Patient NPO this am for ankle surgery - tighten CF/CR * Patient on ~168 units of insulin per day / plan to split more 50/50 regimen with basal and bolus insulin 01/14: * POD #1 s/p ORIF L ankle. Tolerating on oral diet. * Graciela received 146 units of SQ insulin yesterday with poor glycemic control (all BSGs 200 mg/dl or more) * Fasting BSG above goal at 256 mg/dL. Will increase basal insulin by ~20%. * Tighten Novolog correction factor and carb ratio due to consistent post prandial elevation. * Will contact Hospitalist to discuss plan for transition back to insulin pump. PLAN FOR INPATIENT GLYCEMIC CONTROL: * Basal insulin * Lantus 110 units SQ qAM (administered as two injections of 55 units each) * Bolus insulin * NovoLog per scale ACHS or Q6hrs while NPO * Goal Range: Low 110 mg/dL - High 140 mg/dL * Correction Factor: 6 mg/dL/unit * Nutritional / Prandial insulin per carb ratio of 1 unit per 2 grams CHO consumed
[2020-01-15] MEDS ORDERED: ORTHO WARFARIN NOMOGRAM SCH (14:00)
[2020-01-15] MEDS ORDERED: WARFARIN SOD 10 MG TAB PO ONE (14:15)
[2020-01-15] MEDS: DIGOXIN 0.125 MG TAB PO SCH (16:15)
--- NOTE | 2020-01-15 16:22 | Orthopedic Progress Note ---
Date of Service January 15, 2020 Assessment & Plan (1) Ankle fracture, bimalleolar, closed: Status post ORIF left ankle POD#1 -Ancef x24 -DVT prophylaxis SCDs, teds, warfarin, bridge per medicine in a.m. -Nonweightbearing left lower extremity -Postoperative x-ray demonstrates a well aligned well fixed orthopedic implants anatomic alignment of the fracture site and mortise -A.m. labs-hemoglobin stable at 11.3 this am. Ortho will sign off at this time. F/u in office in 2 weeks post operatively. Please call [phone] for an appointment. Please contact orthopedics with any questions or concerns, thank you. (2) Brittany-prosthetic fracture around prosthetic knee: Maintain nonweightbearing and knee immobilizer RLE at all times. Ortho will sign off at this time. Admission and Anticipated Discharge Date Admission Date: January 12, 2020 Subjective Post Operative Progress Note Patient seen sitting up in bed, comfortable, denies complaints, pain well controlled, no acute issues. Admits to pain to left ankle, controlled with medication, Denies F/C/N/V/SOB/CP. Review of Systems Review of Systems: All systems reviewed & are unremarkable except as noted in HPI & below Constitutional: as per Subjective / HPI Physical Exam Physical Exam: RLE NVSI grossly, +2 DP pulse, compartments soft NT, KI in place LLE NVSI +EHL/FHL SILT grossly, splint clean, dry and intact Constitutional: WD/WN, vitals as above Results & Data ([facility]) Vital Signs (Past 12 Hours) Vital Signs Temp Pulse Pulse Resp BP Pulse Ox 01/15/20 16:15 113 H 01/15/20 15:21 38.0 C H 70 20 104/67 96 01/15/20 14:24 95 01/15/20 10:54 37.0 C 94 H 20 98/66 L 93 01/15/20 08:02 36.6 C 106 H 20 104/68 92 01/15/20 07:26 117 H Laboratory Results 01/15/20 01/15/20 01/15/20 Range/Units 16:15 11:34 07:59 WBC (4.8-10.8) K/uL RBC (4.2-5.4) M/uL Hgb (12.0-16.0) g/dL Hct (37-47) % MCV (80-100) fL MCH (25-34) pg MCHC (32-36) g/dL RDW Std Deviation (36.4-46.3) fL RDW Coeff of Katrin (11.5-14.5) % Plt Count (130-400) K/uL MPV (7.4-10.4) fL PT 11.5 (9.0-12.0) Seconds INR 1.1 (0.9-1.1) Sodium (136-145) mmol/L Potassium (3.5-5.1) mmol/L Chloride (98-107) mmol/L Carbon Dioxide (21-32) mmol/L Anion Gap (3-11) BUN (7-18) mg/dl Creatinine (0.6-1.2) mg/dl Est Cr Clr Drug Dosing ml/min Est GFR ( Amer) Est GFR (Non-Af Amer) BUN/Creatinine Ratio (10-20) Glucose (70-99) mg/dl POC Glucose 193 H 235 H (70-99) mg/dl Calcium (8.5-10.1) mg/dl 01/15/20 01/15/20 01/15/20 Range/Units 07:59 07:59 07:33 WBC 9.57 (4.8-10.8) K/uL RBC 3.43 L (4.2-5.4) M/uL Hgb 10.2 L (12.0-16.0) g/dL Hct 31.2 L (37-47) % MCV 91.0 (80-100) fL MCH 29.7 (25-34) pg MCHC 32.7 (32-36) g/dL RDW Std Deviation 46.3 (36.4-46.3) fL RDW Coeff of Katrin 14.0 (11.5-14.5) % Plt Count 166 (130-400) K/uL MPV 10.8 H (7.4-10.4) fL PT (9.0-12.0) Seconds INR (0.9-1.1) Sodium 135 L (136-145) mmol/L Potassium 4.0 (3.5-5.1) mmol/L Chloride 103 (98-107) mmol/L Carbon Dioxide 26 (21-32) mmol/L Anion Gap 7.0 (3-11) BUN 12 (7-18) mg/dl Creatinine 0.87 (0.6-1.2) mg/dl Est Cr Clr Drug Dosing 66.2 ml/min Est GFR ( Amer) 77.7 Est GFR (Non-Af Amer) 67.0 BUN/Creatinine Ratio 13.8 (10-20) Glucose 214 H (70-99) mg/dl POC Glucose 256 H (70-99) mg/dl Calcium 8.7 (8.5-10.1) mg/dl 01/15/20 01/15/20 01/14/20 Range/Units 04:51 00:08 20:36 WBC (4.8-10.8) K/uL RBC (4.2-5.4) M/uL Hgb (12.0-16.0) g/dL Hct (37-47) % MCV (80-100) fL MCH (25-34) pg MCHC (32-36) g/dL RDW Std Deviation (36.4-46.3) fL RDW Coeff of Katrin (11.5-14.5) % Plt Count (130-400) K/uL MPV (7.4-10.4) fL PT (9.0-12.0) Seconds INR (0.9-1.1) Sodium (136-145) mmol/L Potassium (3.5-5.1) mmol/L Chloride (98-107) mmol/L Carbon Dioxide (21-32) mmol/L Anion Gap (3-11) BUN (7-18) mg/dl Creatinine (0.6-1.2) mg/dl Est Cr Clr Drug Dosing ml/min Est GFR ( Amer) Est GFR (Non-Af Amer) BUN/Creatinine Ratio (10-20) Glucose (70-99) mg/dl POC Glucose 213 H 246 H 279 H (70-99) mg/dl Calcium (8.5-10.1) mg/dl 01/14/20 Range/Units 17:47 WBC (4.8-10.8) K/uL RBC (4.2-5.4) M/uL Hgb (12.0-16.0) g/dL Hct (37-47) % MCV (80-100) fL MCH (25-34) pg MCHC (32-36) g/dL RDW Std Deviation (36.4-46.3) fL RDW Coeff of Katrin (11.5-14.5) % Plt Count (130-400) K/uL MPV (7.4-10.4) fL PT (9.0-12.0) Seconds INR (0.9-1.1) Sodium (136-145) mmol/L Potassium (3.5-5.1) mmol/L Chloride (98-107) mmol/L Carbon Dioxide (21-32) mmol/L Anion Gap (3-11) BUN (7-18) mg/dl Creatinine (0.6-1.2) mg/dl Est Cr Clr Drug Dosing ml/min Est GFR ( Amer) Est GFR (Non-Af Amer) BUN/Creatinine Ratio (10-20) Glucose (70-99) mg/dl POC Glucose 200 H (70-99) mg/dl Calcium (8.5-10.1) mg/dl (1) Brittany-prosthetic fracture around prosthetic knee Encounter type: initial encounter Laterality: right Qualified Code(s): M97.11XA - Periprosthetic fracture around internal prosthetic right knee joint, initial encounter
[2020-01-15] MEDS ORDERED: ACETAMINOPHEN 500 MG TAB PO PRN (17:47)
[2020-01-15] MEDS: ENOXAPARIN INJ 30 MG/0.3 ML SYR SQ SCH (20:52)
[2020-01-15] MEDS: SENNA 8.6 MG TAB PO SCH (20:52)
[2020-01-15] MEDS: TRAZODONE HCL 50 MG TAB PO SCH (20:52)
--- NOTE | 2020-01-15 20:52 | XRay Report ---
XR chest 1V portable CLINICAL HISTORY: CONGESTION COMPARISON STUDY: Chest radiograph January 12, 2020. FINDINGS: Incidental note is made of postoperative findings within the cervical spine. There is exten sive mitral annular calcification. Mild cardiomegaly is unchanged. There is no evidence for pulmonary edema or pneumonia. The appearance of the chest is unchanged. IMPRESSION: No acute cardiopulmonary findings. ACT 112: Negative or not required by law. Electronically signed by: Reese Nelson M.D. 01/15/2020 8:51 PM
[2020-01-15] MEDS: PRAVASTATIN SOD 20 MG TAB PO SCH (20:53)
[2020-01-16] MEDS: ACETAMINOPHEN 500 MG TAB PO SCH ×3 (06:24→21:42)
[2020-01-16 06:28] LABS: Hematocrit (blood only) 28.9 % (37-47); Hemoglobin 9.3 g/dL (12.0-16.0); Mean Corpuscular Hemoglobin 29.7 pg (25-34); Mean Corpuscular Hgb Conc 32.2 g/dL (32-36); Mean Corpuscular Volume 92.3 fL (80-100); Mean Platelet Volume 10.9 fL (7.4-10.4); Platelet Count 161 K/uL (130-400); RDW Coefficient of Variation 14.2 % (11.5-14.5); RDW Standard Deviation 47.7 fL (36.4-46.3); Red Blood Count 3.13 M/uL (4.2-5.4); White Blood Count 8.75 K/uL (4.8-10.8)
[2020-01-16 06:39] LABS: INR 1.1 (0.9-1.1); Prothrombin Time 11.7 Seconds (9.0-12.0)
[2020-01-16 07:04] LABS: Creatinine Clr Calc Pharmacy 57.1 ml/min; Est GFR (African American) 64.1; Est GFR (Non-African American) 55.3; Potassium 4.6 mmol/L (3.5-5.1)
[2020-01-16] MEDS: CHOLECALCIFEROL 1,000 UNITS 25 MCG TAB PO SCH (08:07)
[2020-01-16] MEDS: MULTIVITAMIN TAB PO SCH (08:07)
[2020-01-16] MEDS: ISOSORBIDE MONO EXTENDED REL 30 MG TABCR PO SCH (08:07)
[2020-01-16] MEDS: METOPROLOL SUCC 25MG EXT REL TAB PO SCH (08:07)
[2020-01-16] MEDS: DOCUSATE SODIUM 100 MG CAP PO SCH ×2 (08:07→21:43)
[2020-01-16] MEDS: LETROZOLE 2.5 MG TAB PO SCH (08:07)
[2020-01-16] MEDS: FLUTICASONE PROPIONATE NA SPR 16 GM BTL SCH (08:08)
[2020-01-16] MEDS: INSULIN ASPART 100 UNITS/ML 3 ML PEN SC SCH ×4 (08:10→21:40)
[2020-01-16] MEDS: ENOXAPARIN INJ 30 MG/0.3 ML SYR SQ SCH ×2 (08:11→21:42)
[2020-01-16] MEDS: PREGABALIN 150 MG CAP PO SCH ×2 (08:14→21:38)
[2020-01-16] MEDS: INSULIN GLARGINE 100 UNIT/ML VIAL SC SCH ×2 (08:15→08:17)
--- NOTE | 2020-01-16 10:21 | Pharmacy Report ---
Pharmacy Glycemic Short Note 2 - Date of Service January 16, 2020 - Glycemic Short BSG Results (Last 24 hours): 01/15/20 01/15/20 01/15/20 11:34 16:15 20:20 Glucose POC Glucose 235 H 193 H 166 H 01/16/20 01/16/20 06:09 07:36 Glucose 200 H POC Glucose 205 H Outpatient Anti-diabetic Regimen: * Ozempic 1 mg SQ weekly * Metformin 1000 mg PO BIDM * [employer] Insulin Pump - Novolog: * Goal Range = 100-180 mg/dL * Basal Rate = 5.0 units/day * Bolus = 15 units with breakfast, 15 units with lunch, and 17 units with dinner * Correction Factor = 1 unit for every 20 mg/dL over 180 mg/dL * Carb Ratio = 1 unit for every 5 grams of CHO * A1c = 13.5% on 01/12/2020 ASSESSMENT: * 70 yo F admitted secondary to chest pain and fall on 01/12/2020 found to have displaced fracture of her right distal femoral metaphysis and left tib-fib fracture. Please refer to previous notes regarding background info/decision to take patient off insulin pump for inpatient stay. * A1c of 13.5% shows severe sub-optimal control of diabetes as an outpatient. Outpatient medications and pump settings can be seen above. 01/13: * Patient NPO this am for ankle surgery - tighten CF/CR * Patient on ~168 units of insulin per day / plan to split more 50/50 regimen with basal and bolus insulin 01/14: * POD #1 s/p ORIF L ankle. Tolerating on oral diet. * Graciela received 146 units of SQ insulin yesterday with poor glycemic control (all BSGs 200 mg/dl or more) * Fasting BSG above goal at 256 mg/dL. Will increase basal insulin by ~20%. * Tighten Novolog correction factor and carb ratio due to consistent post prandial elevation. * Will contact Hospitalist to discuss plan for transition back to insulin pump. 01/15 * POD #2 s/p ORIF L ankle * Graciela received 204 units of insulin yesterday (110 units basal, 94 units bolus) * Post prandial BSGs trending downward nicely. * Fasting BSG remains elevated. Continue to titrate Lantus dose. Increase 10% today. * Based on discussion with Hospitalist, patient will remain on SQ basal + bolus insulin for the time being. Self management of pump is not ideal at this time. Patient continues to require use of narcotics for pain control and thus may experience sedative side effects. She will require extended rehabilitation after discharge. PLAN FOR INPATIENT GLYCEMIC CONTROL: * Basal insulin - increase * Lantus 120 units SQ qAM (administered as two injections of 60 units each) * Bolus insulin - tighten carb ratio * NovoLog per scale ACHS or Q6hrs while NPO * Goal Range: Low 110 mg/dL - High 140 mg/dL * Correction Factor: 6 mg/dL/unit * Nutritional / Prandial insulin per carb ratio of 1 unit per 1.5 grams CHO consumed
[2020-01-16] MEDS: OXYCODONE HCL IR 5 MG TAB (IMMEDIATE RELEASE) PO PRN (13:14)
[2020-01-16] MEDS: DIGOXIN 0.125 MG TAB PO SCH (16:00)
--- NOTE | 2020-01-16 17:02 | Hospitalist Progress Note ---
Date of Service January 16, 2020 Assessment & Plan (1) Ankle fracture, bimalleolar, closed: ORIF performed by Dr. Carpenter 01/14/20. POD # 2. Ortho instructions: VTE prophylaxis with TEDS, SCD's, resumption of wafarin +/- bridge. Nonweightbearing LLE. Nonweightbearing and knee immobilizer RLE at all times. Follow-up with Dr. Carpenter 2 weeks postop. Vitamin D level = 20.5. (2) Brittany-prosthetic fracture around prosthetic knee: Nonsurgical management per Orthopedic Surgery. Ortho instructions: VTE prophylaxis with TEDS, SCD's, resumption of wafarin +/- bridge. Nonweightbearing and knee immobilizer RLE at all times. Follow-up with Dr. Carpenter. (3) Osteoporosis: Vitamin D level = 20.5. Replace with cholecalciferol 1000 units daily. (4) Chest pain: Experienced chest discomfort at home. Serial troponins negative. Seen by Cardiology. No need for further cardiac evaluation. (5) Coronary artery disease: History of microvascular angina. Nuclear stress test was negative for ischemia in 2019. Acute [place] ruled out. Seen in consultation by Cardiology. Echo showed mild concentric LVH, LVEF > 70%, no segmental wall motion abnormalities, grade I diastolic dysfunction, aortic sclerosis without significant stenosis, mitral annular calcification without stenosis. No need for additional cardiac evaluation before proceeding with surgery. Continue aspirin, metoprolol, nitrates, statin. (6) Atrial fibrillation: Chronic atrial fibrillation. Continue metoprolol and digoxin for rate control. Warfarin held for surgery; received IV heparin preop. Resuming warfarin postop. (7) COPD (chronic obstructive pulmonary disease): Pulmonary status stable. Albuterol PRN. (8) Diabetes mellitus type 2, uncontrolled: DM type 2, usually managed with semaglutide and NovoLog pump. Hgb A1c = 13.5. Pharmacy consulted for glycemic management. FBS today =265. Continue insulin coverage. Ongoing education / support during hospital stay and in clinic. (9) Dyslipidemia: Continue pravastatin. (10) Fever: Low grade fever 01/14. No signs / symptoms of infection. WBC normal. No infiltrates on CXR. Low grade temp probably due to ortho surgery. Follow and re-evaluate as necessary. (11) Cisneros catheter in place: Limited mobility and pain due to fractures of lower extremities. Remove Cisneros as soon as possible. 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 Warfarin held preop and received IV heparin. Warfarin started postop. SCD's and KAMRYN's also ordered. Add SQ enoxaparin until INR therapeutic if OK from surgical perspective. (Probably more risk than benefit bridging with therapeutic dosing of anticoagulation, so will use prophylactic dose.) (13) Discharge planning issues: Discharge disposition to be determined. Family Medicine follow-up with Dr. Jaramillo. Admission and Anticipated Discharge Date Admission Date: January 12, 2020 Subjective Recheck for atrial fibrillation, orthopedic injuries, and other problems. Patient seen in their room around 0730. Still having some postop pain. Low grade temp yesterday- no cough, diarrhea. Still has Cisneros cath. Review of Systems: Constitutional- as noted above. Cardiac- as noted above. Pulmonary- no cough or SOB. GI- no nausea, vomiting, diarrhea, melena, hematochezia. - Cisneros cath. Otherwise, as noted above. Physical Exam Constitutional: no acute distress Respiratory: no respiratory distress Auscultation: lungs clear to auscultation bilaterally Cardiovascular: Rate/Rhythm: + irregularly irregular Heart Sounds: + murmur (II/ sys murmur LSB) and + cardiac rub; no gallop Vessels: no JVD Extremities: no calf tenderness and no edema Gastrointestinal (Abdomen): normal bowel sounds, soft, nontender, no hepatosplenomegaly Musculoskeletal: Extremities: + extremities abnormal to inspection (immobilizer applied to RLE; left ankle splinted) Skin: no rashes, warm and dry Psychiatric: Orientation: alert and oriented x 3 Results & Data Results & Data ([facility]) Vital Signs (Past 12 Hours) Vital Signs Temp Pulse Pulse Resp BP BP Pulse Ox 01/16/20 16:00 103 H 01/16/20 15:57 37.5 C 109 H 18 111/70 95 01/16/20 15:15 96 H 01/16/20 11:21 36.9 C 95 H 20 104/64 94 01/16/20 07:27 36.7 C 100 H 20 106/65 94 01/16/20 07:26 92 H Laboratory Results Laboratory Results - last 24 hr 01/15/20 01/16/20 01/16/20 20:20 06:09 06:09 WBC 8.75 RBC 3.13 L Hgb 9.3 L Hct 28.9 L MCV 92.3 MCH 29.7 MCHC 32.2 RDW Std Deviation 47.7 H RDW Coeff of Katrin 14.2 Plt Count 161 MPV 10.9 H PT INR Sodium 135 L Potassium 4.6 Chloride 101 Carbon Dioxide 30 Anion Gap 4.0 BUN 18 Creatinine 1.02 Est Cr Clr Drug Dosing 57.1 Est GFR ( Amer) 64.1 Est GFR (Non-Af Amer) 55.3 BUN/Creatinine Ratio 18.0 Glucose 200 H POC Glucose 166 H Calcium 9.0 01/16/20 01/16/20 01/16/20 06:09 07:36 11:29 WBC RBC Hgb Hct MCV MCH MCHC RDW Std Deviation RDW Coeff of Katrin Plt Count MPV PT 11.7 INR 1.1 Sodium Potassium Chloride Carbon Dioxide Anion Gap BUN Creatinine Est Cr Clr Drug Dosing Est GFR ( Amer) Est GFR (Non-Af Amer) BUN/Creatinine Ratio Glucose POC Glucose 205 H 218 H Calcium 01/16/20 16:32 WBC RBC Hgb Hct MCV MCH MCHC RDW Std Deviation RDW Coeff of Katrin Plt Count MPV PT INR Sodium Potassium Chloride Carbon Dioxide Anion Gap BUN Creatinine Est Cr Clr Drug Dosing Est GFR ( Amer) Est GFR (Non-Af Amer) BUN/Creatinine Ratio Glucose POC Glucose 223 H Calcium Diagnostic Findings PORTABLE CHEST X-RAY Reviewed by the undersigned and formally interpreted by Radiology: FINDINGS: Incidental note is made of postoperative findings within the cervical spine. There is extensive mitral annular calcification. Mild cardiomegaly is unchanged. There is no evidence for pulmonary edema or pneumonia. The appearance of the chest is unchanged. IMPRESSION: No acute cardiopulmonary findings. ACT 112: Negative or not required by law. Electronically signed by: Reese Nelson M.D. 01/15/2020 8:51 PM (1) Brittany-prosthetic fracture around prosthetic knee Encounter type: initial encounter Laterality: right Qualified Code(s): M97.11XA - Periprosthetic fracture around internal prosthetic right knee joint, initial encounter (2) Chest pain Chest pain type: unspecified Qualified Code(s): R07.9 - Chest pain, unspecified
[2020-01-16] MEDS ORDERED: WARFARIN SOD 10 MG TAB PO ONE (17:15)
[2020-01-16] MEDS: PRAVASTATIN SOD 20 MG TAB PO SCH (21:41)
[2020-01-16] MEDS: SENNA 8.6 MG TAB PO SCH (21:44)
[2020-01-16] MEDS: TRAZODONE HCL 50 MG TAB PO SCH (21:51)
[2020-01-17] MEDS: ACETAMINOPHEN 500 MG TAB PO SCH ×3 (06:17→21:54)
[2020-01-17] MEDS: OXYCODONE HCL IR 5 MG TAB (IMMEDIATE RELEASE) PO PRN ×2 (08:08→21:55)
[2020-01-17] MEDS: DOCUSATE SODIUM 100 MG CAP PO SCH ×2 (08:09→21:54)
[2020-01-17] MEDS: LETROZOLE 2.5 MG TAB PO SCH (08:09)
[2020-01-17] MEDS: FLUTICASONE PROPIONATE NA SPR 16 GM BTL SCH (08:09)
[2020-01-17] MEDS: ENOXAPARIN INJ 30 MG/0.3 ML SYR SQ SCH ×2 (08:10→21:50)
[2020-01-17] MEDS: METOPROLOL SUCC 25MG EXT REL TAB PO SCH (08:10)
[2020-01-17] MEDS: MULTIVITAMIN TAB PO SCH (08:10)
[2020-01-17] MEDS: ISOSORBIDE MONO EXTENDED REL 30 MG TABCR PO SCH (08:10)
[2020-01-17] MEDS: CHOLECALCIFEROL 1,000 UNITS 25 MCG TAB PO SCH (08:11)
[2020-01-17] MEDS: INSULIN GLARGINE 100 UNIT/ML VIAL SC SCH ×2 (08:47→09:33)
[2020-01-17] MEDS: PREGABALIN 150 MG CAP PO SCH ×2 (08:47→21:49)
[2020-01-17] MEDS: INSULIN ASPART 100 UNITS/ML 3 ML PEN SC SCH ×4 (09:32→22:17)
[2020-01-17 09:33] LABS: Hematocrit (blood only) 31.5 % (37-47); Mean Corpuscular Hemoglobin 29.5 pg (25-34); Mean Corpuscular Hgb Conc 31.7 g/dL (32-36); Mean Corpuscular Volume 92.9 fL (80-100); Mean Platelet Volume 10.7 fL (7.4-10.4); Nucleated RBC # (auto) 0.03 K/uL (0-0); Nucleated RBC % (auto) 0.3 %; Platelet Count 217 K/uL (130-400); RDW Coefficient of Variation 14.3 % (11.5-14.5); RDW Standard Deviation 47.8 fL (36.4-46.3); Red Blood Count 3.39 M/uL (4.2-5.4); White Blood Count 8.86 K/uL (4.8-10.8)
[2020-01-17 09:43] LABS: INR 1.3 (0.9-1.1); Prothrombin Time 13.2 Seconds (9.0-12.0)
[2020-01-17] MEDS ORDERED: METOPROLOL SUCC 25MG EXT REL TAB PO ONE (10:00)
--- NOTE | 2020-01-17 10:16 | Hospitalist Progress Note ---
Date of Service January 17, 2020 Assessment & Plan (1) Ankle fracture, bimalleolar, closed: ORIF performed by Dr. Carpenter 01/14/20. POD # 3. Ortho instructions: VTE prophylaxis with TEDS, SCD's, resumption of wafarin +/- bridge. Nonweightbearing LLE. Nonweightbearing and knee immobilizer RLE at all times. Follow-up with Dr. Carpenter 2 weeks postop. Vitamin D level = 20.5. (2) Brittany-prosthetic fracture around prosthetic knee: Nonsurgical management per Orthopedic Surgery. Ortho instructions: VTE prophylaxis with TEDS, SCD's, resumption of wafarin +/- bridge. Nonweightbearing and knee immobilizer RLE at all times. Follow-up with Dr. Carpenter. (3) Osteoporosis: Vitamin D level = 20.5. Replace with cholecalciferol 1000 units daily. (4) Chest pain: Experienced chest discomfort at home. Serial troponins negative. Seen by Cardiology. No need for further cardiac evaluation. (5) Coronary artery disease: History of microvascular angina. Nuclear stress test was negative for ischemia in 2019. Acute [place] ruled out. Seen in consultation by Cardiology. Echo showed mild concentric LVH, LVEF > 70%, no segmental wall motion abnormalities, grade I diastolic dysfunction, aortic sclerosis without significant stenosis, mitral annular calcification without stenosis. No need for additional cardiac evaluation before proceeding with surgery. Continue aspirin, metoprolol, nitrates, statin. (6) Atrial fibrillation: Chronic atrial fibrillation. Continue metoprolol and digoxin for rate control. Warfarin held for surgery; received IV heparin preop. Resuming warfarin postop. INR today 1.3. (7) COPD (chronic obstructive pulmonary disease): Pulmonary status stable. Albuterol PRN. (8) Diabetes mellitus type 2, uncontrolled: DM type 2, usually managed with semaglutide and NovoLog pump. Hgb A1c = 13.5. Pharmacy consulted for glycemic management. FBS today = 197. Continue insulin coverage. Ongoing education / support during hospital stay and in clinic. (9) Dyslipidemia: Continue pravastatin. (10) Fever: Low grade fever 01/14. No signs / symptoms of infection. WBC normal. No infiltrates on CXR. Low grade temp probably due to ortho surgery. Follow and re-evaluate as necessary. (11) Cisneros catheter in place: Limited mobility and pain due to fractures of lower extremities. Remove Cisneros today if possible. 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 Warfarin held preop and received IV heparin. Warfarin started postop. SCD's and KAMRYN's also ordered. Added SQ enoxaparin until INR therapeutic.. (Probably more risk than benefit bridging with therapeutic dosing of anticoagulation, so will use prophylactic dose.) (13) Discharge planning issues: Discharge disposition to be determined. Anticipated need for skilled care or inpt rehab. Family Medicine follow-up with Dr. Jaramillo. Admission and Anticipated Discharge Date Admission Date: January 12, 2020 Subjective Recheck for atrial fibrillation, orthopedic injuries, and other problems. Patient seen in their room around 1000. Still having postop pain; analgesics help. Constipated. Still has Cisneros cath. Review of Systems: Constitutional- no fever or chills. Cardiac- no chest pain. Pulmonary- no cough or SOB. GI- constipated; no nausea, vomiting, diarrhea, melena, hematochezia. - Cisneros cath. Otherwise, as noted above. Physical Exam Constitutional: no acute distress out of bed in chair Respiratory: no respiratory distress Auscultation: lungs clear to auscu ltation bilaterally Cardiovascular: Rate/Rhythm: + irregularly irregular Heart Sounds: + murmur (II/ sys murmur LSB); no gallop Vessels: no JVD Extremities: no calf tenderness and no edema Gastrointestinal (Abdomen): normal bowel sounds, soft, nontender, no hepatosplenomegaly Musculoskeletal: Extremities: + extremities abnormal to inspection (immobilizer applied to RLE; left ankle splinted) Skin: no rashes, warm and dry Psychiatric: Orientation: alert and oriented x 3 Results & Data Results & Data ([facility]) Vital Signs (Past 12 Hours) Vital Signs Temp Pulse Pulse Resp BP BP Pulse Ox 01/17/20 07:37 109 H 01/17/20 06:52 37.6 C H 112 H 19 130/79 96 01/17/20 04:24 37.2 C 103 H 18 128/74 94 01/16/20 23:10 36.9 C 107 H 18 126/78 94 Laboratory Results Laboratory Results - last 24 hr 01/16/20 01/16/20 01/16/20 11:29 16:32 20:17 WBC RBC Hgb Hct MCV MCH MCHC RDW Std Deviation RDW Coeff of Katrin Plt Count MPV Absolute Nucleated RBC Nucleated RBC % (auto) PT INR Sodium Potassium Chloride Carbon Dioxide Anion Gap BUN Creatinine Est Cr Clr Drug Dosing Est GFR ( Amer) Est GFR (Non-Af Amer) BUN/Creatinine Ratio Glucose POC Glucose 218 H 223 H 193 H Calcium 01/17/20 01/17/20 01/17/20 07:35 09:19 09:19 WBC 8.86 RBC 3.39 L Hgb 10.0 L Hct 31.5 L MCV 92.9 MCH 29.5 MCHC 31.7 L RDW Std Deviation 47.8 H RDW Coeff of Katrin 14.3 Plt Count 217 MPV 10.7 H Absolute Nucleated RBC 0.03 H Nucleated RBC % (auto) 0.3 PT INR Sodium Pending Potassium Pending Chloride Pending Carbon Dioxide Pending Anion Gap Pending BUN Pending Creatinine Pending Est Cr Clr Drug Dosing Pending Est GFR ( Amer) Pending Est GFR (Non-Af Amer) Pending BUN/Creatinine Ratio Pending Glucose Pending POC Glucose 197 H Calcium Pending 01/17/20 09:19 WBC RBC Hgb Hct MCV MCH MCHC RDW Std Deviation RDW Coeff of Katrin Plt Count MPV Absolute Nucleated RBC Nucleated RBC % (auto) PT 13.2 H INR 1.3 H Sodium Potassium Chloride Carbon Dioxide Anion Gap BUN Creatinine Est Cr Clr Drug Dosing Est GFR ( Amer) Est GFR (Non-Af Amer) BUN/Creatinine Ratio Glucose POC Glucose Calcium (1) Brittany-prosthetic fracture around prosthetic knee Encounter type: initial encounter Laterality: right Qualified Code(s): M97.11XA - Periprosthetic fracture around internal prosthetic right knee joint, initial encounter (2) Chest pain Chest pain type: unspecified Qualified Code(s): R07.9 - Chest pain, unspecified
[2020-01-17 10:26] LABS: Calcium 9.4 mg/dl (8.5-10.1); Creatinine Clr Calc Pharmacy 69.6 ml/min; Est GFR (African American) 79.9; Est GFR (Non-African American) 68.9; Potassium 4.4 mmol/L (3.5-5.1)
[2020-01-17 10:44] LABS: Beta-Hydroxybutyrate 5.34 mg/dl (0.2-2.81)
--- NOTE | 2020-01-17 15:16 | Cardiology Progress Note ---
Date of Service January 17, 2020 Assessment & Plan (1) Palpitations: Resolved (2) Preop cardiovascular exam: Tolerated procedure well from a cardiac standpoint. (3) Microvascular angina: Chronic, stable Continue metoprolol and Imdur as an inpatient (4) Chronic a-fib: Rates remain elevated likely due to ongoing pain. We will increase metoprolol to 50 mg p.o. daily and she will continue to receive pain control. Continue Lovenox bridge along with warfarin. Okay to DC telemetry from a cardiac standpoint. Subjective Patient seen and examined, chart reviewed. Currently seated out of bed in chair with left leg elevated. States that she still in significant 7 out of 10 pain due to her right knee pain. Cardiac cordova without complaint and denies chest pain, shortness of breath, palpitations, lightheadedness, dizziness or syncope. Telemetry reviewed: Atrial fibrillation with increased rates in the 100s to 110s Review of Systems Review of Systems: All systems reviewed & are unremarkable except as noted in HPI & below Physical Exam Physical Exam: General: Awake, alert and oriented x 3. No acute distress. HEENT: Normocephalic, atraumatic. Pupils equal, round and reactive to light and accommodation. Extraocular muscles are intact. Anicteric sclera. Moist mucous membranes. Neck: No JVD. No bruit. Cardiovascular: irregularly irregular, unable to appreciate murmur, rub or gallop. Pulmonary: Clear to auscultation bilaterally. No rales, rhonchi, or wheezing. Abdomen: Bowel sounds x 4, soft. No rebound, guarding or tenderness. No organomegaly. Extremities: No clubbing, cyanosis or edema. +2 pedal pulses bilaterally. Skin: Warm and dry. Results & Data Vital Signs (Past 12 Hours) Vital Signs Temp Pulse Pulse Resp BP BP Pulse Ox 01/17/20 11:42 36.4 C L 110 H 18 119/74 97 01/17/20 07:37 109 H 01/17/20 06:52 37.6 C H 112 H 19 130/79 96 01/17/20 04:24 37.2 C 103 H 18 128/74 94
[2020-01-17] MEDS: DIGOXIN 0.125 MG TAB PO SCH (15:45)
[2020-01-17] MEDS: MAGNESIUM HYDROXIDE SUSP 30 ML UDC PO PRN (15:58)
[2020-01-17] MEDS ORDERED: WARFARIN SOD 7.5 MG TAB PO SCH (16:00)
[2020-01-17] MEDS: PRAVASTATIN SOD 20 MG TAB PO SCH (21:49)
[2020-01-17] MEDS: SENNA 8.6 MG TAB PO SCH (21:49)
[2020-01-17] MEDS: TRAZODONE HCL 50 MG TAB PO SCH (21:55)
[2020-01-18] MEDS ORDERED: INSULIN ASPART 100 UNITS/ML 3 ML PEN SC SCH
[2020-01-18] MEDS: ACETAMINOPHEN 500 MG TAB PO SCH ×3 (06:18→20:30)
[2020-01-18 06:51] LABS: Hematocrit (blood only) 30.8 % (37-47); Mean Corpuscular Hemoglobin 30.5 pg (25-34); Mean Corpuscular Hgb Conc 32.5 g/dL (32-36); Mean Corpuscular Volume 93.9 fL (80-100); Mean Platelet Volume 10.8 fL (7.4-10.4); Platelet Count 238 K/uL (130-400); RDW Coefficient of Variation 14.6 % (11.5-14.5); Red Blood Count 3.28 M/uL (4.2-5.4)
[2020-01-18 07:02] LABS: INR 1.9 (0.9-1.1); Prothrombin Time 19.3 Seconds (9.0-12.0)
[2020-01-18 07:20] LABS: BUN Creatinine Ratio 20.9 (10-20); Calcium 9.2 mg/dl (8.5-10.1); Creatinine Clr Calc Pharmacy 90.1 ml/min; Est GFR (African American) 103.5; Est GFR (Non-African American) 89.3; Potassium 4.2 mmol/L (3.5-5.1)
[2020-01-18] MEDS: OXYCODONE HCL IR 5 MG TAB (IMMEDIATE RELEASE) PO PRN ×3 (08:28→17:52)
[2020-01-18] MEDS: PREGABALIN 150 MG CAP PO SCH ×2 (08:29→20:31)
[2020-01-18] MEDS: ENOXAPARIN INJ 30 MG/0.3 ML SYR SQ SCH ×2 (08:30→20:32)
[2020-01-18] MEDS: FLUTICASONE PROPIONATE NA SPR 16 GM BTL SCH (08:30)
[2020-01-18] MEDS: ISOSORBIDE MONO EXTENDED REL 30 MG TABCR PO SCH (08:31)
[2020-01-18] MEDS: LETROZOLE 2.5 MG TAB PO SCH (08:31)
[2020-01-18] MEDS: MULTIVITAMIN TAB PO SCH (08:31)
[2020-01-18] MEDS: METOPROLOL SUCC 50MG EXT REL TAB PO SCH (08:32)
[2020-01-18] MEDS: CHOLECALCIFEROL 1,000 UNITS 25 MCG TAB PO SCH (08:32)
[2020-01-18] MEDS: INSULIN ASPART 100 UNITS/ML 3 ML PEN SC SCH ×4 (08:34→20:33)
[2020-01-18] MEDS: DOCUSATE SODIUM 100 MG CAP PO SCH ×2 (08:41→20:31)
[2020-01-18] MEDS: INSULIN GLARGINE 100 UNIT/ML VIAL SC SCH ×2 (08:42→08:45)
[2020-01-18] MEDS: dilTIAZem HCL 180 MG CAPCR PO SCH (10:08)
--- NOTE | 2020-01-18 11:39 | Hospitalist Progress Note ---
Date of Service January 18, 2020 Assessment & Plan (1) Ankle fracture, bimalleolar, closed: ORIF performed by Dr. Carpenter 01/14/20. POD # 4. Ortho instructions: VTE prophylaxis with TEDS, SCD's, resumption of wafarin +/- bridge. Nonweightbearing LLE. Nonweightbearing and knee immobilizer RLE at all times. Follow-up with Dr. Carpenter 2 weeks postop. Vitamin D level = 20.5. (2) Brittany-prosthetic fracture around prosthetic knee: Nonsurgical management per Orthopedic Surgery. Ortho instructions: VTE prophylaxis with TEDS, SCD's, resumption of wafarin +/- bridge. Nonweightbearing and knee immobilizer RLE at all times. Follow-up with Dr. Carpenter. (3) Osteoporosis: Vitamin D level = 20.5. Replace with cholecalciferol 1000 units daily. (4) Chest pain: Experienced chest discomfort at home. Serial troponins negative. Seen by Cardiology. No need for further cardiac evaluation. (5) Coronary artery disease: History of microvascular angina. Nuclear stress test was negative for ischemia in 2019. Acute [place] ruled out. Seen in consultation by Cardiology. Echo showed mild concentric LVH, LVEF > 70%, no segmental wall motion abnormalities, grade I diastolic dysfunction, aortic sclerosis without significant stenosis, mitral annular calcification without stenosis. No need for additional cardiac evaluation before proceeding with surgery. Continue aspirin, metoprolol, nitrates, statin. (6) Atrial fibrillation: Chronic atrial fibrillation. Continue metoprolol and digoxin for rate control. Warfarin held for surgery; received IV heparin preop. Resuming warfarin postop. INR today 1.9. (7) COPD (chronic obstructive pulmonary disease): Pulmonary status stable. Albuterol PRN. (8) Diabetes mellitus type 2, uncontrolled: DM type 2, usually managed with semaglutide and NovoLog pump. Hgb A1c = 13.5. Pharmacy consulted for glycemic management. FBS today = 131. Continue insulin coverage. Ongoing education / support during hospital stay and in clinic. (9) Dyslipidemia: Continue pravastatin. (10) Fever: Low grade fever 01/14. No signs / symptoms of infection. WBC normal. No infiltrates on CXR. Low grade temp probably due to ortho surgery. Follow and re-evaluate as necessary. (11) Cisneros catheter in place: Limited mobility and pain due to fractures of lower extremities. Cisneros removed 01/16, but having urinary retention requiring straight caths. Urinary retention probably secondary to postop analgescis. Straight caths are difficult for patient, so Cisneros may need to be reinserted. 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 Warfarin held preop and received IV heparin. Warfarin started postop. SCD's and KAMYRN's also ordered. Added SQ enoxaparin until INR therapeutic.. (Probably more risk than benefit bridging with therapeutic dosing of anticoagulation, so will use prophylactic dose.) (13) Discharge planning issues: Discharge disposition to be determined. Anticipated need for skilled care or inpt rehab. Family Medicine follow-up with Dr. Jaramillo. Admission and Anticipated Discharge Date Admission Date: January 12, 2020 Subjective Recheck for atrial fibrillation, orthopedic injuries, and other problems. Patient seen in their room around 0930. Less postop pain. Still constipated. Having urinary retention since Cisneros catheter removed yesterday. Review of Systems: Constitutional- no fever or chills. Cardiac- no chest pain. Pulmonary- no cough or SOB. GI- constipated; no nausea, vomiting, diarrhea, melena, hematochezia. - urinary retention. Otherwise, as noted above. Physical Exam Constitutional: no acute distress Respiratory: no respiratory distress Auscultation: lungs clear to auscultation bilaterally Cardiovascular: Rate/Rhythm: + irregularly irregular Heart Sounds: + murmur (II/ sys murmur LSB); no gallop Vessels: no JVD Extremities: no calf tenderness and no edema Gastrointestinal (Abdomen): normal bowel sounds, soft, nontender, no hepatosplenomegaly Musculoskeletal: Extremities: + extremities abnormal to inspection (immobilizer applied to RLE; left ankle splinted) Skin: no rashes, warm and dry Psychiatric: Orientation: alert and oriented x 3 Results & Data Results & Data ([facility]) Vital Signs (Past 12 Hours) Vital Signs Temp Pulse Pulse Resp BP BP Pulse Ox 01/18/20 11:30 36.7 C 99 H 18 125/79 94 01/18/20 07:19 37.0 C 113 H 20 136/83 92 01/18/20 04:00 36.9 C 114 H 20 116/78 91 01/18/20 02:13 1 L Laboratory Results 01/18/20 06:22 01/18/20 06:22 (1) Brittany-prosthetic fracture around prosthetic knee Encounter type: initial encounter Laterality: right Qualified Code(s): M97.11XA - Periprosthetic fracture around internal prosthetic right knee joint, initial encounter (2) Chest pain Chest pain type: unspecified Qualified Code(s): R07.9 - Chest pain, unspecified
[2020-01-18] MEDS: MoRPHine SULFATE 2 MG/ML CARP IV PRN ×2 (13:38→21:15)
--- NOTE | 2020-01-18 14:04 | Cardiology Progress Note ---
Date of Service January 18, 2020 Assessment & Plan (1) Palpitations: Resolved (2) Preop cardiovascular exam: Tolerated procedure well from a cardiac standpoint. (3) Microvascular angina: Chronic, stable Continue metoprolol and Imdur as an inpatient (4) Chronic a-fib: Rates remain elevated likely due to ongoing pain. We will continue current dose of metoprolol but also start Cardizem CD 180 mg daily for further rate control. Okay to DC telemetry from a cardiac standpoint. Subjective Patient seen and examined, chart reviewed. Out of bed in chair states that her pain is much more controlled today. Denies any cardiac complaints of chest pain, shortness of breath, palpitations, lightheadedness, dizziness or syncope. Telemetry reviewed atrial fibrillation with rates in the 100s to 110s. Review of Systems Review of Systems: All systems reviewed & are unremarkable except as noted in HPI & below Physical Exam Physical Exam: General: Awake, alert and oriented x 3. No acute distress. HEENT: Normocephalic, atraumatic. Pupils equal, round and reactive to light and accommodation. Extraocular muscles are intact. Anicteric sclera. Moist m ucous membranes. Neck: No JVD. No bruit. Cardiovascular: irregularly irregular, unable to appreciate murmur, rub or gallop. Pulmonary: Clear to auscultation bilaterally. No rales, rhonchi, or wheezing. Abdomen: Bowel sounds x 4, soft. No rebound, guarding or tenderness. No organomegaly. Extremities: No clubbing, cyanosis or edema. +2 pedal pulses bilaterally. Skin: Warm and dry. Results & Data Vital Signs (Past 12 Hours) Vital Signs Temp Pulse Pulse Resp BP BP Pulse Ox 01/18/20 11:30 36.7 C 99 H 18 125/79 94 01/18/20 08:00 100 H 01/18/20 07:19 37.0 C 113 H 20 136/83 92 01/18/20 04:00 36.9 C 114 H 20 116/78 91 01/18/20 02:13 1 L
[2020-01-18] MEDS: WARFARIN SOD 5 MG TAB PO SCH (17:12)
[2020-01-18] MEDS: DIGOXIN 0.125 MG TAB PO SCH (17:13)
[2020-01-18] MEDS: POLYETHYLENE (MIRALAX) 17 GM PACK PO PRN (17:52)
[2020-01-18] MEDS: MAGNESIUM HYDROXIDE SUSP 30 ML UDC PO PRN (17:53)
[2020-01-18] MEDS: SENNA 8.6 MG TAB PO SCH (20:31)
[2020-01-18] MEDS: PRAVASTATIN SOD 20 MG TAB PO SCH (20:31)
[2020-01-18] MEDS: TRAZODONE HCL 50 MG TAB PO SCH (21:12)
[2020-01-19] MEDS: ACETAMINOPHEN 500 MG TAB PO SCH ×2 (05:36→13:12)
[2020-01-19] MEDS: OXYCODONE HCL IR 5 MG TAB (IMMEDIATE RELEASE) PO PRN ×3 (05:36→15:55)
[2020-01-19] MEDS: MoRPHine SULFATE 2 MG/ML CARP IV PRN ×2 (06:25→16:49)
[2020-01-19 06:51] LABS: Hematocrit (blood only) 28.9 % (37-47); Hemoglobin 9.2 g/dL (12.0-16.0); Mean Corpuscular Hemoglobin 29.2 pg (25-34); Mean Corpuscular Hgb Conc 31.8 g/dL (32-36); Mean Corpuscular Volume 91.7 fL (80-100); Mean Platelet Volume 10.2 fL (7.4-10.4); Platelet Count 246 K/uL (130-400); RDW Coefficient of Variation 14.7 % (11.5-14.5); RDW Standard Deviation 48.5 fL (36.4-46.3); Red Blood Count 3.15 M/uL (4.2-5.4); White Blood Count 7.46 K/uL (4.8-10.8)
[2020-01-19 07:04] LABS: INR 2.3 (0.9-1.1); Prothrombin Time 23.4 Seconds (9.0-12.0)
[2020-01-19 07:34] LABS: BUN Creatinine Ratio 26.6 (10-20); Calcium 8.7 mg/dl (8.5-10.1); Est GFR (African American) 88.6; Est GFR (Non-African American) 76.5; Potassium 4.5 mmol/L (3.5-5.1)
[2020-01-19] MEDS: PREGABALIN 150 MG CAP PO SCH (07:40)
[2020-01-19] MEDS: FLUTICASONE PROPIONATE NA SPR 16 GM BTL SCH (07:41)
[2020-01-19] MEDS: dilTIAZem HCL 180 MG CAPCR PO SCH (07:41)
[2020-01-19] MEDS: POLYETHYLENE (MIRALAX) 17 GM PACK PO PRN (07:41)
[2020-01-19] MEDS: ENOXAPARIN INJ 30 MG/0.3 ML SYR SQ SCH (07:41)
[2020-01-19] MEDS: DOCUSATE SODIUM 100 MG CAP PO SCH (07:41)
[2020-01-19] MEDS: CHOLECALCIFEROL 1,000 UNITS 25 MCG TAB PO SCH (07:42)
[2020-01-19] MEDS: LETROZOLE 2.5 MG TAB PO SCH (07:42)
[2020-01-19] MEDS: MULTIVITAMIN TAB PO SCH (07:42)
[2020-01-19] MEDS: ISOSORBIDE MONO EXTENDED REL 30 MG TABCR PO SCH (07:42)
[2020-01-19] MEDS: METOPROLOL SUCC 50MG EXT REL TAB PO SCH (07:42)
[2020-01-19] MEDS: INSULIN GLARGINE 100 UNIT/ML VIAL SC SCH (09:03)
[2020-01-19] MEDS: INSULIN ASPART 100 UNITS/ML 3 ML PEN SC SCH ×2 (09:04→12:51)
--- NOTE | 2020-01-19 11:01 | Pharmacy Report ---
Glycemic Control Progress Note - Date of Service January 19, 2020 - Scope Glycemic Pharmacist consulted for glycemic control to write orders per [facility] inpatient glycemic control protocol. - Objective Accuchecks BSG(last 24 hours):: 01/18/20 01/18/20 01/18/20 11:39 16:30 20:17 Glucose POC Glucose 152 H 163 H 103 H 01/19/20 01/19/20 06:41 07:41 Glucose 135 H POC Glucose 143 H HbA1c:: Hemoglobin A1c 13.5 % (4.5-5.6) H 01/12/20 20:39 - Recent Pertinent Medications The patient is currently receiving: * Basal insulin: Lantus 120 units every 24 hours * Correctional Insulin: Novolog Correction per scale ACHS Goal Range: Low 110 mg/dL - High 140 mg/dL Correction Factor: 5 mg/dL/unit * Prandial insulin: Per carb ratio of 1 unit per 1.5 grams CHO consumed - Outpatient Anti-Diabetic Meds Novolog pump (basal rate = 5 units/hr plus bolus dosing of 15 units with breakfast, 15 units with lunch, 17 units with supper; CF of 20 and CR of 5) TDD ~150 units/day metformin 1 gm PO BID Ozempic 1 mg SQ weekly - Assessment & Plan ASSESSMENT: * See progress note from 01/13/2020 for more background info, in short: * Pt receiving SQ basal bolus insulin regimen for hyperglycemia secondary to baseline DM (outpatient regimen on hold). * Patient is currently receiving an average of 207 units of insulin per day * 120 units of basal insulin * 87 units of prandial/correctional insulin * BSGs ranging 103 - 163 mg/dl over the past 24hrs * Changes needed to insulin regimen: * AM Fasting BSG = 143 mg/dl. This is just slightly above goal range for patient based on inpatient targets and co-morbidities. Therefore Basal insulin will be continued at this point. Lantus 120 units SQ daily represents the patient's home basal rate as well. * Post-prandial BSGs did trend upwards slightly yesterday. Considering tightening CF as hesitate to go to a CR of 1. * Total daily dose = >200 units. PLAN FOR INPATIENT GLYCEMIC CONTROL: * Continuing Lantus 120 units SQ daily * Continuing correction factor of 5 mg/dl/unit * Continuing carb ratio of 1 unit per 1.5 grams CHO consumed * Continuing goal range of Low 110 mg/dL - High 140 mg/dL RECOMMENDATIONS FOR DISCHARGE: * Patient wishes to use insulin pump at rehab and at home. Recommend transitioning in the morning prior to SQ Lantus dose given. * It appears that patient's bolus dosing is not enough. However, patient is going to make dietary changes. * If desired, could increase bolus dose to at least 25 units with normal meals and 17 units with smaller meals. Thank you.
--- NOTE | 2020-01-19 12:22 | Cardiology Progress Note ---
Date of Service January 19, 2020 Assessment & Plan (1) Palpitations: Resolved (2) Preop cardiovascular exam: Tolerated procedure well from a cardiac standpoint. (3) Microvascular angina: Chronic, stable Continue metoprolol and Imdur as an inpatient (4) Chronic a-fib: We will continue current dose of metoprolol, digoxin and Cardizem CD. Could consider increasing dose of Cardizem if needed for further rate control. Continue Coumadin INR therapeutic today at 2.3. Okay to DC telemetry or to rehab from a cardiac standpoint. Subjective Patient seen and examined, chart reviewed. Out of bed in chair states that her pain is much more controlled today. Denies any cardiac complaints of chest pain, shortness of breath, palpitations, lightheadedness, dizziness or syncope. Telemetry reviewed atrial fibrillation with rates in the 90s to 100s. Review of Systems Review of Systems: All systems reviewed & are unremarkable except as noted in HPI & below Physical Exam Physical Exam: General: Awake, alert and oriented x 3. No acute distress. HEENT: Normocephalic, atraumatic. Pupils equal, round and reactive to light and accommodation. Extraocular muscles are intact. Anicteric sclera. Moist mucous membranes. Neck: No JVD. No bruit. Cardiovascular: irregularly irregular, unable to appreciate murmur, rub or gallop. Pulmonary: Clear to auscultation bilaterally. No rales, rhonchi, or wheezing. Abdomen: Bowel sounds x 4, soft. No rebound, guarding or tenderness. No organomegaly. Extremities: No clubbing, cyanosis or edema. +2 pedal pulses bilaterally. Skin: Warm and dry. Results & Data Vital Signs (Past 12 Hours) Vital Signs Temp Pulse Pulse Resp BP BP Pulse Ox 01/19/20 11:39 36.8 C 94 H 18 109/61 93 01/19/20 10:38 91 01/19/20 07:29 37 C 96 H 18 102/57 L 95 01/19/20 06:13 36.9 C 99 H 18 126/78 94 01/19/20 04:16 66
--- NOTE | 2020-01-19 14:47 | Hospitalist Progress Note ---
Date of Service January 19, 2020 Assessment & Plan (1) Ankle fracture, bimalleolar, closed: ORIF performed by Dr. Carpenter 01/14/20. POD # 5. Ortho instructions: VTE prophylaxis with TEDS, SCD's, resumption of wafarin +/- bridge. Nonweightbearing LLE. Nonweightbearing and knee immobilizer RLE at all times. Follow-up with Dr. Carpenter 2 weeks postop. Vitamin D level = 20.5. (2) Brittany-prosthetic fracture around prosthetic knee: Nonsurgical management per Orthopedic Surgery. Ortho instructions: VTE prophylaxis with TEDS, SCD's, resumption of wafarin +/- bridge. Nonweightbearing and knee immobilizer RLE at all times. Follow-up with Dr. Carpenter. (3) Osteoporosis: Vitamin D level = 20.5. Discharge on calcium + vitamin D. Outpatient bone density determination when possible. (4) Chest pain: Experienced chest discomfort at home. Serial troponins negative. Seen by Cardiology. No need for further cardiac evaluation. (5) Coronary artery disease: History of microvascular angina. Nuclear stress test was negative for ischemia in 2019. Acute [place] ruled out. Seen in consultation by Cardiology. Echo showed mild concentric LVH, LVEF > 70%, no segmental wall motion abnormalities, grade I diastolic dysfunction, aortic sclerosis without significant stenosis, mitral annular calcification without stenosis. No need for additional cardiac evaluation before proceeding with surgery. Continue aspirin, metoprolol, nitrates, statin. (6) Atrial fibrillation: Chronic atrial fibrillation. Continue metoprolol and digoxin for rate control. Warfarin held for surgery; received IV heparin preop. Ventricular rate high at times. Metoprolol dose increased. Resumed warfarin postop. INR day of discharge 2.3. (7) COPD (chronic obstructive pulmonary disease): Pulmonary status stable. Albuterol PRN. (8) Diabetes mellitus type 2, uncontrolled: DM type 2, usually managed with metformin, semaglutide and NovoLog pump. Hgb A1c = 13.5. Unclear why A1c was so high with insulin pump. Pharmacy consulted for glycemic management; receiving basal / bolus SQ insulin. FBS day of discharge 143. Discharge on metformin, semaglutide, and SQ insulin with eventual transition back to insulin pump. Discharge insulin dosing: Lantus 50 units BID NovoLog sliding scale with meals. Ongoing education / support. (9) Dyslipidemia: Continue pravastatin. (10) Fever: Low grade fever 01/14. No signs / symptoms of infection. WBC normal. No infiltrates on CXR. Low grade temp probably due to ortho surgery. Follow and re-evaluate as necessary. (11) Cisneros catheter in place: Limited mobility and pain due to fractures of lower extremities. Cisneros removed 01/16, but had urinary retention requiring straight caths. Urinary retention resolved by 01/18. 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 Warfarin held preop and received IV heparin. Warfarin started postop. SCD's and KAMRYN's also ordered. Added SQ enoxaparin until INR therapeutic.. (Probably more risk than benefit bridging with therapeutic dosing of ant icoagulation, so will use prophylactic dose.) (13) Discharge planning issues: Discharge disposition to be determined. Needs inpt rehab. Arrangements are being made for transfer to [facility]. Family Medicine follow-up with Dr. Jaramillo. Ortho follow-up with Dr. Carpenter 2 weeks postop. Admission and Anticipated Discharge Date Admission Date: January 12, 2020 Subjective Recheck for atrial fibrillation, orthopedic injuries, and other problems. Patient seen in their room around 0950. Postop pain improved. Passing flatus and stool. Urinary retention resolved. Review of Systems: Constitutional- no fever or chills. Cardiac- no chest pain. Pulmonary- no cough or SOB. GI- constipation resolved; no nausea, vomiting, diarrhea, melena, hematochezia. - urinary retention resolved. Otherwise, as noted above. Physical Exam Constitutional: no acute distress Respiratory: no respiratory distress Auscultation: lungs clear to auscultation bilaterally Cardiovascular: Rate/Rhythm: + irregularly irregular Heart Sounds: + murmur (II/ sys murmur LSB); no gallop Vessels: no JVD Extremities: no calf tenderness and no edema Gastrointestinal (Abdomen): normal bowel sounds, soft, nontender, no hepatosplenomegaly Musculoskeletal: Extremities: + extremities abnormal to inspection (immobilizer applied to RLE; left ankle splinted) Skin: no rashes, warm and dry Psychiatric: Orientation: alert and oriented x 3 Results & Data Results & Data ([facility]) Vital Signs (Past 12 Hours) Vital Signs Temp Pulse Pulse Pulse Resp BP BP 01/19/20 14:04 36.8 C 122 H 94 H 18 109/61 126/78 01/19/20 11:39 36.8 C 94 H 18 109/61 01/19/20 10:38 01/19/20 08:00 110 H 01/19/20 07:29 37 C 96 H 18 102/57 L 01/19/20 06:13 36.9 C 99 H 18 126/78 01/19/20 04:16 66 Pulse Ox 01/19/20 14:04 93 01/19/20 11:39 93 01/19/20 10:38 91 01/19/20 08:00 01/19/20 07:29 95 01/19/20 06:13 94 01/19/20 04:16 Laboratory Results Laboratory Results - last 24 hr 01/18/20 01/18/20 01/19/20 16:30 20:17 06:41 WBC 7.46 RBC 3.15 L Hgb 9.2 L Hct 28.9 L MCV 91.7 MCH 29.2 MCHC 31.8 L RDW Std Deviation 48.5 H RDW Coeff of Katrin 14.7 H Plt Count 246 MPV 10.2 PT INR Sodium Potassium Chloride Carbon Dioxide Anion Gap BUN Creatinine Est Cr Clr Drug Dosing Est GFR ( Amer) Est GFR (Non-Af Amer) BUN/Creatinine Ratio Glucose POC Glucose 163 H 103 H Calcium 01/19/20 01/19/20 01/19/20 06:41 06:41 07:41 WBC RBC Hgb Hct MCV MCH MCHC RDW Std Deviation RDW Coeff of Katrin Plt Count MPV PT 23.4 H INR 2.3 H Sodium 134 L Potassium 4.5 Chloride 101 Carbon Dioxide 28 Anion Gap 5.0 BUN 21 H Creatinine 0.78 Est Cr Clr Drug Dosing 76.0 Est GFR ( Amer) 88.6 Est GFR (Non-Af Amer) 76.5 BUN/Creatinine Ratio 26.6 H Glucose 135 H POC Glucose 143 H Calcium 8.7 01/19/20 11:37 WBC RBC Hgb Hct MCV MCH MCHC RDW Std Deviation RDW Coeff of Katrin Plt Count MPV PT INR Sodium Potassium Chloride Carbon Dioxide Anion Gap BUN Creatinine Est Cr Clr Drug Dosing Est GFR ( Amer) Est GFR (Non-Af Amer) BUN/Creatinine Ratio Glucose POC Glucose 160 H Calcium (1) Brittany-prosthetic fracture around prosthetic knee Encounter type: initial encounter Laterality: right Qualified Code(s): M97.11XA - Periprosthetic fracture around internal prosthetic right knee joint, initial encounter (2) Chest pain Chest pain type: unspecified Qualified Code(s): R07.9 - Chest pain, unspecified
[2020-01-19] MEDS: WARFARIN SOD 5 MG TAB PO SCH (15:56)
[2020-01-19] MEDS: DIGOXIN 0.125 MG TAB PO SCH (15:56)
--- NOTE | 2020-01-19 16:08 | Discharge Summary ---
Date of Service Date of Admission: 01/12/20 Date of Discharge: 01/19/20 Admission HPI Per Admitting Provider History obtained from patient and records. Medical history significant for CAD as per records, A. fib/recurrent LE DVT on Coumadin, hypertension, hyperlipidemia, COPD, breast cancer status post surgery currently on Femara Rx, DM 2 on insulin pump, past tobacco abuse. Last confinement 2015 under Orthopedics service for elective right total knee arthroplasty. Patient had just finished washing dishes this afternoon when she experienced fluttering discomfort on her chest resolved with nitroglycerin intake. No unusual shortness of breath. Last attack was about last month. Not feeling well the last few days, appetite not too good. Denies cough, muscle aches, flulike symptoms, diarrhea, dysuria, known sick contacts. Patient went out of the house to feed some chickens. She felt her right knee gave out causing her to fall down. Patient experienced achy right knee and left ankle pain. Unable to get up. No chest pain, S OB, head trauma, LOC. At the ER, closed reduction done on left distal tibia-fibula/ankle bony injury. Patient currently comfortable. Principal Diagnosis trimalleolar fracture left ankle periprosthetic fracture right distal femoral metaphysis chronic atrial fibrillation with rapid ventricular response Discharge Data Allergies Allergy/AdvReac Type Severity Reaction Status Date / Time esomeprazole Allergy Severe Difficulty Verified 01/14/20 06:47 Breathing alendronate sodium Allergy Intermediate hives Verified 01/14/20 06:47 Consultations 01/12/20 19:49 ED Decision to Admit Stat 01/12/20 22:30 Consult Cardiology Routine Consult Case Management - Discharge Planning Routine Consult Orthopedic Surgery Routine 01/14/20 18:40 Consult Case Management - Discharge Planning Routine Procedures Performed Operation Date: 01/14/20 13:00 Actual Procedures p Left Ankle Fracture Open Reduction Internal Fixation, Splint application(Left) - Anthony Carpenter, Ordered Studies 01/12/20 22:20 CT knee RT wo con Urgent 01/14/20 13:00 FL ankle LT 2V Routine FL fluoroscopy <1hr Routine 01/14/20 13:38 US - OR guided needle placemen Stat Hospital Course (1) Ankle fracture, bimalleolar, closed: ORIF performed by Dr. Carpenter 01/14/20. POD # 5. Ortho instructions: VTE prophylaxis with TEDS, SCD's, resumption of wafarin +/- bridge. Nonweightbearing LLE. Nonweightbearing and knee immobilizer RLE at all times. Follow-up with Dr. Carpenter 2 weeks postop. Vitamin D level = 20.5. (2) Brittany-prosthetic fracture around prosthetic knee: Nonsurgical management per Orthopedic Surgery. Ortho instructions: VTE prophylaxis with TEDS, SCD's, resumption of wafarin +/- bridge. Nonweightbearing and knee immobilizer RLE at all times. Follow-up with Dr. Carpenter. (3) Osteoporosis: Vitamin D level = 20.5. Discharge on calcium + vitamin D. Outpatient bone density determination when possible. (4) Chest pain: Experienced chest discomfort at home. Serial troponins negative. Seen by Cardiology. No need for further cardiac evaluation. (5) Coronary artery disease: History of microvascular angina. Nuclear stress test was negative for ischemia in 2019. Acute [place] ruled out. Seen in consultation by Cardiology. Echo showed mild concentric LVH, LVEF > 70%, no segmental wall motion abnormalities, grade I diastolic dysfunction, aortic sclerosis without significant stenosis, mitral annular calcification without stenosis. No need for additional cardiac evaluation before proceeding with surgery. Continue aspirin, metoprolol, nitrates, statin. (6) Atrial fibrillation: Chronic atrial fibrillation. Continue metoprolol and digoxin for rate control. Warfarin held for surgery; received IV heparin preop. Ventricular rate high at times and meds adjusted. Discharge on metoprolol succinate 75 mg daily + diltiazem CD 180 mg daily. Resumed warfarin postop. INR day of discharge 2.3. (7) COPD (chronic obstructive pulmonary disease): Pulmonary status stable. Albuterol PRN. (8) Diabetes mellitus type 2, uncontrolled: DM type 2, usually managed with metformin, semaglutide and NovoLog pump. Hgb A1c = 13.5. Unclear why A1c was so high with insulin pump. Pharmacy consulted for glycemic management; receiving basal / bolus SQ insulin. FBS day of discharge 143. Discharge on metformin, semaglutide, and SQ insulin with eventual transition back to insulin pump. Discharge insulin dosing: Lantus 100 units SQ daily in a.m. NovoLog sliding scale with meals as detailed in DC instructions. Ongoing education / support. (9) Dyslipidemia: Continue pravastatin. (10) Fever: Low grade fever 6/11. No signs / symptoms of infection. WBC normal. No infiltrates on CXR. Low grade temp probably due to ortho surgery. Follow and re-evaluate as necessary. (11) Cisneros catheter in place: Limited mobility and pain due to fractures of lower extremities. Cisneros removed 01/16, but had urinary retention requiring straight caths. Urinary retention resolved by 01/18. 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 Warfarin held preop and received IV heparin. Warfarin started postop. SCD's and KAMRYN's also ordered. Added SQ enoxaparin until INR therapeutic.. (Probably more risk than benefit bridging with therapeutic dosing of anticoagulation, so will use prophylactic dose.) (13) Discharge planning issues: Discharge disposition to be determined. Needs inpt rehab. Arrangements are being made for transfer to [facility]. Family Medicine follow-up with Dr. Jaramillo. Cardiology follow-up with Dr. Arizmendi. Ortho follow-up with Dr. Carpenter 2 weeks postop. Total Time Total Time Spent Total Time Spent (In Minutes): 50 Discharge Plan Discharge Items Patient Disposition: Transfer Inpatient Rehab Fac Reason For Visit: fx L ankle, fx R distal femoral metaphysis Discharge Diagnosis: fracture left ankle periprosthetic fracture right distal femoral metaphysis atrial fibrillation with rapid ventricular response Activity: Per Instructions section Weightbearing: Left non-weightbearing and Right non-weightbearing Non-emergency contact: Primary Care Provider, Hospitalist, Surgeon and Residential Aide Call non-emergency contact if: you have any medication questions Follow-up/Referrals: Alfa Jaramillo MD [Primary Care Provider] - Anthony Carpenter DO [Physician] - (Call to schedule a follow up for 2 weeks after surgery.) Diet: Carb Consistent or DM2 and Heart Healthy Addtl Attending Provider Instructions: Knee immobilizer RLE at all times. Fingerstick blood sugars AC + HS. INR's twice a week until stable, then per you institution's protocol. Insulin dosing: Lantus 100 units SQ daily in a.m. NovoLog sliding scale with meals: < 81 zero units 81-100 10 units 101-150 15 units 151-200 20 units 201-250 25 units > 250 30 units Please follow blood sugars and adjust as necessary. Incentive spirometry QID. O2 by NC PRN. Thank you for receiving this patient in transfer. Please call if you have any questions. Mack Godinez Add Secure Software Assessor Provider Instructions: ACTIVITY RECOMMENDATIONS: * Non-weight bearing both lower extremities. SPECIAL CARE INSTRUCTIONS: * Some drainage onto the dressing is normal and is no cause for alarm. * Some swelling is natural especially after walking. When resting, keep your foot elevated above the level of your heart. * Call the doctor's office at if you notice increased drainage, fever over 101 degrees F. or severe constant pain. BANDAGE: * Leave bandage/cast in place unless otherwise directed. * Keep bandage/cast dry at all times. FOLLOW UP VISIT: If appointment is not already scheduled: Please call [facility] to make a follow-up appointment with Dr. Carpenter 10-14 days from the day of your surgery at . Pending Studies at Discharge: No Stand-Alone Forms: [facility] Skilled Items Patient informed of condition?: Yes DNR: No Discharge Level of Care: Acute rehab Communicable Disease: No Discharge Prognosis: Improving Lines: None Urinary Catheter: No Medications and DC Order Prescriptions: New multivitamin [Daily-Moiz] Tablet 1 tab PO QAM Qty: 30 RF: 0 sennosides [Senokot] 8.6 mg Tablet 17.2 mg PO HS Qty: 30 RF: 0 tramadol 50 mg Tablet 50 mg PO Q6H PRN (Reason: pain) Qty: 10 RF: 0 acetaminophen 500 mg Tablet 1,000 mg PO Q8 PRN (Reason: pain) Qty: 30 RF: 0 magnesium hydroxide [Milk of Magnesia] 400 mg/5 mL Suspension 30 ml PO DAILY PRN (Reason: constipation) Qty: 30 RF: 0 bisacodyl 10 mg Suppository 10 mg IA DAILY PRN (Reason: constipation) Qty: 10 RF: 0 docusate sodium 100 mg Capsule 100 mg PO BID Qty: 60 RF: 0 oxycodone 5 mg Tablet 5 mg PO Q4H PRN (Reason: pain, severe) Qty: 10 RF: 0 cholecalciferol (vitamin D3) 25 mcg (1,000 unit) Capsule 1,000 unit PO QAM Qty: 30 RF: 0 diltiazem HCl 180 mg Capsule,Extended Release 24hr 180 mg PO QAM Qty: 30 RF: 0 Lantus Solostar U-100 Insulin 100 unit/mL (3 mL) insulin pen 100 units SQ DAILY Qty: 3 RF: 0 insulin aspart U-100 [Novolog Flexpen U-100 Insulin] 100 unit/mL (3 mL) insulin pen See Rx Instructions .ROUTE .COMPLEX Qty: 3 RF: 0 calcium carbonate [Calcium 500] 500 mg calcium (1,250 mg) tablet 500 mg PO BID Qty: 60 RF: 0 Continued pregabalin 150 mg capsule 150 mg PO BID RF: 0 letrozole 2.5 mg tablet 2.5 mg PO DAILY RF: 0 pravastatin 20 mg tablet 20 mg PO QPM RF: 0 digoxin 125 mcg (0.125 mg) tablet 125 mcg PO DAILY RF: 0 hydrochlorothiazide 25 mg tablet 25 mg PO DAILY RF: 0 fluticasone propionate [Flonase Allergy Relief] 50 mcg/actuation [place],Suspension 2 spray INTRANASAL DAILY RF: 0 isosorbide mononitrate 30 mg tablet extended release 24 hr 30 mg PO DAILY RF: 0 metformin 1,000 mg tablet 1,000 mg PO BIDM RF: 0 Ozempic 1 mg/dose (2 mg/1.5 mL) Pen Injector 1 mg SUBCUT WK RF: 0 metoprolol succinate 50 mg tablet extended release 24 hr 50 mg PO QAM RF: 0 metoprolol succinate 25 mg tablet extended release 24 hr 25 mg PO QAM RF: 0 trazodone 50 mg Tablet 50 mg PO HS RF: 0 warfarin 5 mg tablet 5 mg PO QPM RF: 0 duloxetine 30 mg capsule,delayed release(DR/EC) 30 mg PO DAILY RF: 0 nitroglycerin [Nitrostat] 0.3 mg Tablet, Sublingual 0.3 mg sublingual .PRN/UD PRN (Reason: Chest Pain) RF: 0 albuterol sulfate [Ventolin HFA] 90 mcg/actuation Hfa Aerosol Inhaler 2 puff INHALATION QID PRN (Reason: Shortness Of Breath Or Wheezing) RF: 0 sennosides 8.6 mg Tablet 8.6 mg PO DAILY PRN (Reason: Constipation) RF: 0 lisinopril 5 mg Tablet 5 mg PO DAILY RF: 0 sertraline 50 mg Tablet 50 mg PO DAILY RF: 0 acetaminophen [Tylenol Extra Strength] 500 mg Tablet 1,000 mg PO Q8H PRN (Reason: Pain) RF: 0 Discontinued insulin aspart U-100 [Novolog U-100 Insulin aspart] 100 unit/mL solution 0 unit subcut CONTINOUS RF: 0 Admission Data Admit Date/Time: 01/12/20 20:53 Attending Provider: Mack Godinez Admit Provider: Jayme Jones Primary Care Provider: Alfa Jaramillo Other Providers: [facility] ; Jayme Jones ; Preet Arizmendi ; Chris Rondon Other Interventions: Discharge Summary Assessment (RN) Last Done: 01/19/20 14:04
== END 2020-01-19 17:00 | DRG 492 ==
LOC: ED 17:45 → 2S 20:53 → SUATTDRO 20:53 → 2S 22:15 → 2N 01-13 15:32

== ENCOUNTER 2020-01-20 07:17 | Inpatient (IN) ==
--- NOTE | 2020-01-20 07:35 | Emergency Department Note ---
History of Present Illness General Chief complaint: Shortness of Breath/Dyspnea Stated complaint: respiratory distress / encompass Time Seen by Provider: 01/20/20 07:19 Source: patient, EMS, RN notes reviewed and old records reviewed Mode of arrival: EMS Limitations: no limitations History of Present Illness Provider complaint: Chest pain, shortness of breath Onset (ago): hour(s) 1 Location: chest Radiation: non-radiation Severity: severe Pain Consistency: + now resolved Current Pain Intensity: 10 Quality: + stabbing Relieved By: + medication (albuterol, oxygen) Exacerbated By: + movement Associated symptoms: + diaphoresis, + headaches and + shortness of breath; no fever/chills and no nausea/vomiting Treatments prior to arrival: other (Oxygen, albuterol) This is a 70-year-old with a history of diabetes coronary artery disease atrial fibrillation on Coumadin for history of DVT with a recent hospitalization for bilateral leg fractures who presents the emergency department for abrupt onset of acute respiratory distress that started at 615 this morning. The patient was placed on a nonrebreather mask at 100%. She was satting 73% on room air. The patient was also diaphoretic and upon arrival to the emergency department is extremely wet. Upon arrival to the emergency department she is pain-free after receiving an albuterol breathing treatment. She denies any recent locke exposure. She has been at [facility] for rehab for the bilateral leg fractures. Home Medications Home Medications Medication Instructions Recorded Confirmed Type Ozempic 1 mg SUBCUT WK 01/12/20 01/20/20 History acetaminophen [Tylenol Extra 1,000 mg PO Q8H PRN 01/12/20 01/20/20 History Strength] albuterol sulfate [Ventolin HFA] 2 puff INHALATION QID PRN 01/12/20 01/20/20 History digoxin 125 mcg PO DAILY 01/12/20 01/20/20 History duloxetine 30 mg PO DAILY 01/12/20 01/20/20 History fluticasone propionate [Flonase 2 spray INTRANASAL DAILY 01/12/20 01/20/20 History Allergy Relief] hydrochlorothiazide 25 mg PO DAILY 01/12/20 01/20/20 History isosorbide mononitrate 30 mg PO QAM 01/12/20 01/20/20 History letrozole 2.5 mg PO QAM 01/12/20 01/20/20 History lisinopril 5 mg PO DAILY 01/12/20 01/20/20 History metformin 1,000 mg PO BIDM 01/12/20 01/20/20 History metoprolol succinate 25 mg PO QAM 01/12/20 01/20/20 History metoprolol succinate 50 mg PO QAM 01/12/20 01/20/20 History nitroglycerin [Nitrostat] 0.3 mg SUBLINGUAL .PRN/UD PRN 01/12/20 01/20/20 History pravastatin 20 mg PO HS 01/12/20 01/20/20 History pregabalin 150 mg PO BID 01/12/20 01/20/20 History sennosides 8.6 mg PO DAILY PRN 01/12/20 01/20/20 History sertraline 50 mg PO DAILY 01/12/20 01/20/20 History trazodone 50 mg PO HS 01/12/20 01/20/20 History warfarin 5 mg PO QPM 01/12/20 01/20/20 History acetaminophen 1,000 mg PO Q8 PRN #30 tab 01/19/20 01/20/20 Rx bisacodyl 10 mg PA DAILY PRN #10 ea 01/19/20 01/20/20 Rx calcium carbonate [Calcium 500] 500 mg PO BID #60 tab 01/19/20 01/20/20 Rx cholecalciferol (vitamin D3) 1,000 unit PO QAM #30 cap 01/19/20 01/20/20 Rx diltiazem HCl 180 mg PO QAM #30 cap 01/19/20 01/20/20 Rx docusate sodium 100 mg PO BID #60 cap 01/19/20 01/20/20 Rx insulin aspart U-100 [Novolog See Rx Instructions .ROUTE 01/19/20 01/20/20 Rx Flexpen U-100 Insulin] .COMPLEX #3 ml magnesium hydroxide [Milk of 30 ml PO DAILY PRN #30 ml 01/19/20 01/20/20 Rx Magnesia] multivitamin [Daily-Moiz] 1 tab PO QAM #30 tab 01/19/20 01/20/20 Rx oxycodone 5 mg PO Q4H PRN #10 tab 01/19/20 01/20/20 Rx sennosides [Senokot] 17.2 mg PO HS #30 tab 01/19/20 01/20/20 Rx tramadol 50 mg PO Q6H PRN #10 tab 01/19/20 01/20/20 Rx enoxaparin [Lovenox] 30 mg SUBCUT Q12H 01/20/20 01/20/20 History insulin glargine [Lantus Solostar 100 units SQ QAM 01/20/20 01/20/20 History U-100 Insulin] insulin regular human [Humulin R 1 sliding scale dose SUBCUT 01/20/20 01/20/20 History Regular U-100 Insuln] USEASDIRECTD Allergies Allergy/AdvReac Type Severity Reaction Status Date / Time esomeprazole Allergy Severe Difficulty Verified 01/20/20 08:05 Breathing alendronate sodium Allergy Intermediate hives Verified 01/20/20 08:05 Past Med/Surg History Medical History Atrial fibrillation Coronary artery disease Diabetes mellitus type 2, uncontrolled Osteoporosis Social History Preferred Language: Estonian Communication Ability: Effective Inside Sales Required: No Beliefs That Will Affect Care: None Current Living Situation: Custodial Other Information That Helps Us Care for You: No Feels Safe at Home: Yes Safety Concerns: Feels Safe At This Time Smoking Status: Never smoker Do You Dip or Chew Tobacco: No ; Second Hand Exposure: No ; Tobacco Cessation Education Requested by Patient: No Hx Alcohol Use: No Hx Substance Use: No Review of Systems A total of 10 systems reviewed and were otherwise negative Physical Exam Vital Signs Vital Signs - 24 hr 01/20/20 07:22 01/20/20 07:24 01/20/20 07:27 Temperature 36.7 C Temperature Source Oral Pulse Rate 102 H 118 H 121 H Pulse Rate from SpO2 Sensor 116 H 120 H Pulse Rhythm Irregular Pulse Strength Normal Respiratory Rate 21 21 22 Respiratory Effort / Characteristics Non-Labored Spontaneous Respiratory Depth Normal Respiratory Pattern Regular Blood Pressure 144/99 H 144/99 H Blood Pressure Mean 117 114 Blood Pressure Position Sitting Pulse Oximetry 93 91 88 L Oxygen Delivery Method Nasal Cannula Nasal Cannula Oxygen Flow Rate 3 3 3 Sepsis Recent Fever Within 48 Hours No Sepsis Action Taken by Nursing No Action Required 01/20/20 07:30 01/20/20 07:31 01/20/20 07:52 Temperature Temperature Source Pulse Rate 105 H 109 H Pulse Rate from SpO2 Sensor 109 H 114 H Pulse Rhythm Pulse Strength Respiratory Rate 22 14 Respiratory Effort / Characteristics Respiratory Depth Respiratory Pattern Blood Pressure 149/82 H Blood Pressure Mean 113 Blood Pressure Position Pulse Oximetry 91 92 Oxygen Delivery Method Nasal Cannula Oxygen Flow Rate 3 3 3 Sepsis Recent Fever Within 48 Hours Sepsis Action Taken by Nursing 01/20/20 08:00 01/20/20 08:01 01/20/20 08:30 Temperature Temperature Source Pulse Rate 106 H 104 H 125 H Pulse Rate from SpO2 Sensor 103 H 113 H 125 H Pulse Rhythm Pulse Strength Respiratory Rate 25 H 19 23 Respiratory Effort / Characteristics Respiratory Depth Respiratory Pattern Blood Pressure 142/79 H 155/99 H Blood Pressure Mean 89 106 Blood Pressure Position Pulse Oximetry 90 92 Oxygen Delivery Method Oxygen Flow Rate 3 3 Sepsis Recent Fever Within 48 Hours Sepsis Action Taken by Nursing 01/20/20 08:31 01/20/20 08:51 01/20/20 09:00 Temperature Temperature Source Pulse Rate 128 H 61 106 H Pulse Rate from SpO2 Sensor 128 H 62 108 H Pulse Rhythm Pulse Strength Respiratory Rate 21 16 16 Respiratory Effort / Characteristics Respiratory Depth Respiratory Pattern Blood Pressure 139/72 131/90 Blood Pressure Mean 96 110 Blood Pressure Position Pulse Oximetry 92 95 92 Oxygen Delivery Method Oxygen Flow Rate 3 3 Sepsis Recent Fever Within 48 Hours Sepsis Action Taken by Nursing 01/20/20 09:01 01/20/20 09:30 01/20/20 10:00 Temperature Temperature Source Pulse Rate 107 H 123 H 113 H Pulse Rate from SpO2 Sensor 112 H 119 H 114 H Pulse Rhythm Pulse Strength Respiratory Rate 20 22 16 Respiratory Effort / Characteristics Respiratory Depth Respiratory Pattern Blood Pressure 127/90 132/76 Blood Pressure Mean 100 85 Blood Pressure Position Pulse Oximetry 94 94 96 Oxygen Delivery Method Oxygen Flow Rate Sepsis Recent Fever Within 48 Hours Sepsis Action Taken by Nursing 01/20/20 10:01 01/20/20 10:30 01/20/20 10:31 Temperature Temperature Source Pulse Rate 113 H 108 H 105 H Pulse Rate from SpO2 Sensor 115 H 118 H 109 H Pulse Rhythm Pulse Strength Respiratory Rate 18 18 17 Respiratory Effort / Characteristics Respiratory Depth Respiratory Pattern Blood Pressure 143/100 H Blood Pressure Mean 107 Blood Pressure Position Pulse Oximetry 95 97 96 Oxygen Delivery Method Oxygen Flow Rate Sepsis Recent Fever Within 48 Hours Sepsis Action Taken by Nursing 01/20/20 11:00 06/16/20 11:01 Temperature Temperature Source Pulse Rate 112 H 99 H Pulse Rate from SpO2 Sensor 116 H 101 H Pulse Rhythm Pulse Strength Respiratory Rate 20 16 Respiratory Effort / Characteristics Respiratory Depth Respiratory Pattern Blood Pressure 136/93 Blood Pressure Mean 109 Blood Pressure Position Pulse Oximetry 96 95 Oxygen Delivery Method Oxygen Flow Rate Sepsis Recent Fever Within 48 Hours Sepsis Action Taken by Nursing VITAL SIGNS - Vital signs and nursing notes were reviewed. GENERAL - 70-year-old female appearing stated age diaphoretic. Communicates well with provider and answers questions appropriately. SKIN - Without rashes. HEAD - NC/AT. EYES - PERRL with EOMI bilaterally. Sclera anicteric. Palpebral conjunctiva pink and moist with no injection noted. EARS - No deformities of external structures noted on gross examination bilaterally. No pain elicited with palpation of the tragus bilaterally. External auditory canals without discharge or otorrhea. Tympanic membranes pearly christine without retraction or bulging. No fluid or purulent material visualized behind the TM. Handle of malleus, umbo, cone of light, pars tensa/flaccid all easily visualized. NOSE - Midline and without cyanosis. No epistaxis or purulent drainage noted. Septum midline without deviation or septal hematoma noted. MOUTH/OROPHARYNX - Without perioral cyanosis. Buccal mucosa pink and moist and without leukoplakia. Tongue midline with equal elevation of palate bilaterally. No tonsillar hypertrophy, erythema, or exudates noted. dentition noted. NECK - Neck with FROM. Supple to palpation. lymphadenopathy noted. No nuchal rigidity. LUNGS - Chest wall symmetric without accessory muscle use, intercostals retractions, or central cyanosis. Normal vesicular breath sounds CTA B/L. No wheezes, rales, or rhonchi appreciated. CARDIAC - RRR with S1/S2. No murmur, rubs, or gallops appreciated. ABDOMEN - Abdominal contour without pulsations or visible masses. BS normoactive all four quadrants. No tenderness, palpable masses, hepatosplen omegaly, or ascites noted. EXTREMITIES - No clubbing or peripheral cyanosis. No pretibial edema present. +3/5 radial, posterior tibial, and dorsalis pedis pulses palpated throughout. +5/5 strength noted in UE/LE bilaterally. NEUROLOGIC - Cranial nerves II through XII grossly intact. Sensory intact to light touch throughout. Patellar reflexes +2/4. PSYCH - A&Ox3 and cooperates fully with examiner. Pt is very pleasant and interacts well with examiner. Course Administered Medications Discontinued Medications Furosemide (Lasix) 40 mg IV NOW STA Stop: 01/20/20 08:30 Last Admin: 01/20/20 08:45 Dose: 40 mg Documented by: [id number] Hydromorphone HCl (Dilaudid) 0.5 mg IV Q15M PRN PRN Reason: Pain Stop: 02/03/20 08:35 Last Admin: 01/20/20 11:26 Dose: 0.5 mg Documented by: [id number] Acetaminophen (Ofirmev) 1,000 mg in 100 mls @ 400 mls/hr IV NOW STA Stop: 01/20/20 08:50 Last Infusion: 01/20/20 09:05 Dose: 0 mls/hr Documented by: [id number] Admin: 01/20/20 08:45 Dose: 400 mls/hr Documented by: [id number] Insulin Glargine (Lantus Solostar Pen) 50 units SC NOW ONE Stop: 01/20/20 11:23 Last Admin: 01/20/20 12:04 Dose: 50 units Documented by: [id number] Cosigned by: [id number] Isosorbide Mononitrate (Imdur Extended Rel) 30 mg PO NOW ONE Stop: 01/20/20 11:41 Last Admin: 01/20/20 12:18 Dose: 30 mg Documented by: [id number] Lisinopril (Zestril) 5 mg PO NOW ONE Stop: 01/20/20 11:26 Last Admin: 01/20/20 12:04 Dose: 5 mg Documented by: [id number] Metoprolol Succinate (Toprol Xl) 25 mg PO NOW ONE Stop: 01/20/20 11:24 Last Admin: 01/20/20 12:04 Dose: 25 mg Documented by: [id number] Metoprolol Succinate (Toprol Xl) 50 mg PO NOW ONE Stop: 01/20/20 11:24 Last Admin: 01/20/20 12:04 Dose: 50 mg Documented by: [id number] Ondansetron HCl (Zofran) 4 mg IV NOW STA Stop: 01/20/20 08:37 Last Admin: 01/20/20 09:45 Dose: Not Given Documented by: [id number] Medical Decision Making Differential Diagnosis Cardiac ischemia, aortic dissection, pulmonary embolism, pneumothorax, pneumonia, pericarditis, myocarditis, esophageal rupture, GERD, cholecystitis, pancreatitis, musculoskeletal, as well as other pathologies. Medical Records Attestation: I reviewed the patient's medical records. Home Medications Current Medication List: was personally reviewed by me Laboratory Data Attestation: I reviewed the patient's lab results. Result diagrams: 01/20/20 07:50 01/20/20 07:50 Lab Results 01/20/20 01/20/20 01/20/20 Range/Units 07:25 07:25 07:50 WBC (4.8-10.8) K/uL RBC (4.2-5.4) M/uL Hgb (12.0-16.0) g/dL Hct (37-47) % MCV (80-100) fL MCH (25-34) pg MCHC (32-36) g/dL RDW Std Deviation (36.4-46.3) fL RDW Coeff of Katrin (11.5-14.5) % Plt Count (130-400) K/uL MPV (7.4-10.4) fL Immature Gran % (Auto) % Neut % (Auto) % Lymph % (Auto) % Rock % (Auto) % Eos % (Auto) % Baso % (Auto) % Immature Gran # (Auto) (0.00-0.02) K/uL Neut # (Auto) (1.4-6.5) K/uL Lymph # (Auto) (1.2-3.4) K/uL Rock # (Auto) (0.11-0.59) K/uL Eos # (Auto) (0-0.5) K/uL Baso # (Auto) (0-0.2) K/uL Absolute Nucleated RBC (0-0) K/uL Nucleated RBC % (auto) % PT (9.0-12.0) Seconds INR (0.9-1.1) APTT (21.0-31.0) Seconds PTT Ratio Sodium 136 (136-145) mmol/L Potassium 4.2 (3.5-5.1) mmol/L Chloride 101 (98-107) mmol/L Carbon Dioxide 28 (21-32) mmol/L Anion Gap 7.0 (3-11) BUN 16 (7-18) mg/dl Creatinine 0.71 (0.6-1.2) mg/dl Est Cr Clr Drug Dosing 82.3 ml/min Est GFR ( Amer) 99.3 Est GFR (Non-Af Amer) 85.7 BUN/Creatinine Ratio 22.4 H (10-20) Glucose 164 H (70-99) mg/dl Calcium 9.1 (8.5-10.1) mg/dl Total Bilirubin 0.5 (0.2-1) mg/dl AST 27 (15-37) U/L ALT 19 (12-78) U/L Alkaline Phosphatase 103 (45-117) U/L Total Creatine Kinase 62 (26-192) U/L CK-MB (CK-2) < 1.0 (0.5-3.6) ng/ml CK/CKMB % Calc TNP Troponin I < 0.015 (0-0.045) ng/ml NT-Pro-B Natriuret Pep 2491 H (0-900) pg/ml Total Protein 7.2 (6.4-8.2) gm/dl Albumin 2.4 L (3.4-5.0) gm/dl Globulin 4.8 H (2.5-4.0) gm/dl Albumin/Globulin Ratio 0.5 L (0.9-2) Lipase 157 (73-393) U/L Urine Color Urine Appearance (Clear) Urine pH (4.5-7.5) Ur Specific Morrill (1.000-1.030) Urine Protein (Negative) Urine Glucose (UA) (Negative) Urine Ketones (Negative) Urine Blood (Negative) Urine Nitrite (Negative) Urine Bilirubin (Negative) Urine Urobilinogen (Negative) Ur Leukocyte Esterase (Negative) Urine WBC (Auto) (0-5) /hpf Urine RBC (Auto) (0-4) /hpf U Hyaline Cast (Auto) (0-5) /lpf U Epithel Cells (Auto) (0-5) /lpf Urine Bacteria (Auto) (Negative) COVID-19 PCR NEGATIVE (Negative) Influenza Type A (PCR) Neg for Influ A (Neg) Influenza Type B (PCR) Neg for Influ B (Neg) 01/20/20 01/20/20 01/20/20 Range/Units 07:50 07:50 08:29 WBC 7.72 (4.8-10.8) K/uL RBC 3.43 L (4.2-5.4) M/uL Hgb 9.9 L (12.0-16.0) g/dL Hct 31.9 L (37-47) % MCV 93.0 (80-100) fL MCH 28.9 (25-34) pg MCHC 31.0 L (32-36) g/dL RDW Std Deviation 49.8 H (36.4-46.3) fL RDW Coeff of Katrin 14.8 H (11.5-14.5) % Plt Count 321 (130-400) K/uL MPV 10.4 (7.4-10.4) fL Immature Gran % (Auto) 0.4 % Neut % (Auto) 81.6 % Lymph % (Auto) 9.5 % Rock % (Auto) 6.9 % Eos % (Auto) 1.3 % Baso % (Auto) 0.3 % Immature Gran # (Auto) 0.03 H (0.00-0.02) K/uL Neut # (Auto) 6.31 (1.4-6.5) K/uL Lymph # (Auto) 0.73 L (1.2-3.4) K/uL Rock # (Auto) 0.53 (0.11-0.59) K/uL Eos # (Auto) 0.10 (0-0.5) K/uL Baso # (Auto) 0.02 (0-0.2) K/uL Absolute Nucleated RBC 0.03 H (0-0) K/uL Nucleated RBC % (auto) 0.3 % PT 24.3 H (9.0-12.0) Seconds INR 2.4 H (0.9-1.1) APTT 41.0 H (21.0-31.0) Seconds PTT Ratio 1.5 Sodium (136-145) mmol/L Potassium (3.5-5.1) mmol/L Chloride (98-107) mmol/L Carbon Dioxide (21-32) mmol/L Anion Gap (3-11) BUN (7-18) mg/dl Creatinine (0.6-1.2) mg/dl Est Cr Clr Drug Dosing ml/min Est GFR ( Amer) Est GFR (Non-Af Amer) BUN/Creatinine Ratio (10-20) Glucose (70-99) mg/dl Calcium (8.5-10.1) mg/dl Total Bilirubin (0.2-1) mg/dl AST (15-37) U/L ALT (12-78) U/L Alkaline Phosphatase (45-117) U/L Total Creatine Kinase (26-192) U/L CK-MB (CK-2) (0.5-3.6) ng/ml CK/CKMB % Calc Troponin I (0-0.045) ng/ml NT-Pro-B Natriuret Pep (0-900) pg/ml Total Protein (6.4-8.2) gm/dl Albumin (3.4-5.0) gm/dl Globulin (2.5-4.0) gm/dl Albumin/Globulin Ratio (0.9-2) Lipase (73-393) U/L Urine Color Yellow Urine Appearance Cloudy A (Clear) Urine pH 7.0 (4.5-7.5) Ur Specific Morrill 1.015 (1.000-1.030) Urine Protein Negative (Negative) Urine Glucose (UA) Negative (Negative) Urine Ketones Negative (Negative) Urine Blood 2+ H (Negative) Urine Nitrite Positive A (Negative) Urine Bilirubin Negative (Negative) Urine Urobilinogen Negative (Negative) Ur Leukocyte Esterase 2+ H (Negative) Urine WBC (Auto) >30 H (0-5) /hpf Urine RBC (Auto) 0-4 (0-4) /hpf U Hyaline Cast (Auto) 1-5 (0-5) /lpf U Epithel Cells (Auto) 0-5 (0-5) /lpf Urine Bacteria (Auto) 4+ H (Negative) COVID-19 PCR (Negative) Influenza Type A (PCR) (Neg) Influenza Type B (PCR) (Neg) Imaging Data [phone] [facility] Report Patient: LOUIS BENAVIDES LAdsusan Date: 01/20/20 MR#: [id number]: [address] Acct ID:[id number]: Date: 1950[facility] Zip: [place] [address] Age: 70Location: ED Sex: F Room/Bed: Att Phy:Diagnosis: respiratory distress / encompass [facility] Parviz Phy:Interpreting Phy: Rajan Elizabeth Admit Phy: Ordering Phy: Narciso Perry MD cc: ~ XR chest 1V portable HISTORY: 70 years-old Female Chest Pain acute atypical chest pain COMPARISON: Chest radiograph 01/15/2020 TECHNIQUE: Portable AP view of the chest FINDINGS: Cardiac silhouette is enlarged. Calcific plaque of the thoracic aorta arch. Probable trace pleural effusions. Progressively worsened interstitial opacities. No pneumothorax. Degenerative changes of the shoulders and spine. Fusion hardware of the cervical spine. IMPRESSION: 1. Cardiomegaly with interval development of diffuse interstitial opacities suggestive of pulmonary edema. 2. Probable trace pleural effusions. ACT 112: Negative or not required by law. The above report was generated using voice recognition software. It may contain grammatical, syntax or spelling errors. Electronically signed by: Chuy Elizabeth M.D. 01/20/2020 8:25 AM Dictated: 01/20/20823 Transcribed: 01/20/20823 ECG Data Attestation: I personally reviewed and interpreted this ECG as follows: Indication: + chest pain Rate (beats per minute): 108 Rhythm: + atrial fibrillation ECG Intervals/blocks: + Normal QT-c (455) ECG [place]: + Normal ECG ST segments: no ST depression and no ST elevation ECG Findings: + Q waves (anterior) Comparison ECG Date: from (01/12/2020) Change: the following changes noted (anterior infarct) Blood Pressure Blood Pressure Findings: Elevated blood pressure Blood Pressure Disposition: elevated BP felt to be situational MDM Narrative This is a 70-year-old female who presents emergency department sudden onset of shortness of breath. Patient's COVID test is negative. Her chest x-ray is concerning for pulmonary edema. For this reason she was given Lasix here in the emergency department. She was given Dilaudid for her bilateral leg pain. Due to the patient's hypoxia and oxygen requirement I do believe she needs to be admitted to the hospitalist service. She does not have an elevation in her white blood cell count has a normal troponin. Patient was seen and evaluated as above in room C10. Review was performed of nursing notes and vital signs. I did review pertinent previous visits and patient history. After obtaining a thorough history and physical examination the above work up was performed. An order was placed for continuous cardiac monitoring. The monitor shows a rate of 121 with A fib rhythm. The patient was evaluated during the global COVID-19 pandemic, and that diagnosis was suspected/considered upon their initial presentation. Their evaluation, treatment and testing was consistent with current guidelines for patients who present with complaints or symptoms that may be related to COVID- 19. Impression & Plan Congestive heart failure, Hypoxia Discharge Plan Visit Data *Final* Discharge Date/Time: 01/20/20 12:59 Chief Complaint: Shortness of Breath/Dyspnea Stated Complaint: respiratory distress / encompass ED Provider: Narciso Perry Discharge Problem: Congestive heart failure, Hypoxia Patient Disposition: Admitted As Inpatient Discharge Instructions Interventions: ED Discharge Assessment Last Done: 01/20/20 12:59 Discharge Problem: Congestive heart failure Qualifiers: Heart failure type: unspecified Heart failure chronicity: unspecified Qualified Code(s): I50.9 - Heart failure, unspecified
[2020-01-20 08:03] LABS: Basophils # (auto) 0.02 K/uL (0-0.2); Basophils % (auto) 0.3 %; Eosinophils % (auto) 1.3 %; Hematocrit (blood only) 31.9 % (37-47); Hemoglobin 9.9 g/dL (12.0-16.0); Immature Granulocytes # (auto) 0.03 K/uL (0.00-0.02); Immature Granulocytes % (auto) 0.4 %; Lymphocytes # (auto) 0.73 K/uL (1.2-3.4); Lymphocytes % (auto) 9.5 %; Mean Corpuscular Hemoglobin 28.9 pg (25-34); Mean Platelet Volume 10.4 fL (7.4-10.4); Monocytes # (auto) 0.53 K/uL (0.11-0.59); Monocytes % (auto) 6.9 %; Neutrophils # (auto) 6.31 K/uL (1.4-6.5); Neutrophils % (auto) 81.6 %; Nucleated RBC # (auto) 0.03 K/uL (0-0); Nucleated RBC % (auto) 0.3 %; Platelet Count 321 K/uL (130-400); RDW Coefficient of Variation 14.8 % (11.5-14.5); RDW Standard Deviation 49.8 fL (36.4-46.3); Red Blood Count 3.43 M/uL (4.2-5.4); White Blood Count 7.72 K/uL (4.8-10.8)
[2020-01-20 08:14] LABS: INR 2.4 (0.9-1.1); Partial Thromboplastin Ratio 1.5; Prothrombin Time 24.3 Seconds (9.0-12.0)
[2020-01-20 08:21] LABS: Alanine Aminotransferase 19 U/L (12-78); Albumin Level 2.4 gm/dl (3.4-5.0); Aspartate Aminotransferase 27 U/L (15-37); BUN Creatinine Ratio 22.4 (10-20); Blood Urea Nitrogen 16 mg/dl (7-18); Calcium 9.1 mg/dl (8.5-10.1); Carbon Dioxide 28 mmol/L (21-32); Chloride 101 mmol/L (98-107); Creatinine Clr Calc Pharmacy 82.3 ml/min; Est GFR (African American) 99.3; Est GFR (Non-African American) 85.7; Glucose 164 mg/dl (70-99); Lipase 157 U/L (73-393); Potassium 4.2 mmol/L (3.5-5.1); Sodium 136 mmol/L (136-145)
[2020-01-20 08:26] LABS: Albumin Globulin Ratio 0.5 (0.9-2); Alkaline Phosphatase 103 U/L (45-117); Bilirubin,Total 0.5 mg/dl (0.2-1); Creatine Kinase 62 U/L (26-192); Creatine Kinase MB < 1.0 ng/ml (0.5-3.6); Globulin 4.8 gm/dl (2.5-4.0); NT Pro B Type Natriuretic Pept 2491 pg/ml (0-900); Total Protein 7.2 gm/dl (6.4-8.2); Troponin I < 0.015 ng/ml (0-0.045)
--- NOTE | 2020-01-20 08:26 | XRay Report ---
XR chest 1V portable HISTORY: 70 years-old Female Chest Pain acute atypical chest pain COMPARISON: Chest radiograph 01/15/2020 TECHNIQUE: Portable AP view of the chest FINDINGS: Cardiac silhouette is enlarged. Calcific plaque of the thoracic aorta arch. Probable trace pleural ef fusions. Progressively worsened interstitial opacities. No pneumothorax. Degenerative changes of the shoulders and spine. Fusion hardware of the cervical spine. IMPRESSION: 1. Cardiomegaly with interval development of diffuse interstitial opacities suggestive of pulmonary e caterina. 2. Probable trace pleural effusions. ACT 112: Negative or not required by law. The above report was generated using voice recognition software. It may contain grammatical, syntax o r spelling errors. Electronically signed by: Chuy Elizabeth M.D. 01/20/2020 8:25 AM
[2020-01-20] MEDS ORDERED: FUROSEMIDE 40 MG/4 ML VIAL IV STA (08:29)
[2020-01-20] MEDS ORDERED: ACETAMINOPHEN 1,000 MG/100 ML VIAL IV STA (08:36)
[2020-01-20] MEDS ORDERED: HYDROmorphone INJ 0.5 MG/0.5 ML SYR IV PRN (08:36)
[2020-01-20] MEDS ORDERED: ONDANSETRON INJ 2 MG/ML 2 ML VIAL IV STA (08:36)
[2020-01-20 08:40] LABS: Influenza A virus by PCR Neg for Influ A (Neg); Influenza B virus by PCR Neg for Influ B (Neg)
[2020-01-20 08:44] LABS: Appearance Urine Cloudy (Clear); Bacteria Urine Automated 4+ (Negative); Bilirubin Urine Negative (Negative); Blood Urine 2+ (Negative); Color Urine Yellow; Epithelial Cell Urine Auto 0-5 /lpf (0-5); Glucose Urine UA Negative (Negative); Ketones Urine Negative (Negative); Leukocyte Esterase Urine 2+ (Negative); Nitrite Urine Positive (Negative); Protein Urine Negative (Negative); RBC Urine Automated 0-4 /hpf (0-4); Specific Gravity Urine 1.015 (1.000-1.030); Urobilinogen Urine Negative (Negative); WBC Urine Automated >30 /hpf (0-5)
--- NOTE | 2020-01-20 10:52 | History & Physical Report ---
Date of Service January 20, 2020 Assessment & Plan (1) Congestive heart failure: Exam and chest x-ray consistent with acute CHF. Recent echo showed LVEF 70%. Received IV furosemide in ED. Cardiology consulted; will defer whether or not to obtain repeat echocardiography to them. Titrate diuretic therapy. (2) Coronary artery disease: History of coronary artery disease. Chest pressure this morning associated with CHF. EKG shows AF with nonspecific ST, T-wave changes. First troponin normal; check repeat in 6 hours., Cardiology consulted. Continue metoprolol, nitrates. Add ASA. Check lipids. (3) Atrial fibrillation: History of chronic AF. Taking metoprolol, diltiazem, and digoxin for rate control. Hold diltiazem pending input from Cardiology. Continue metoprolol and digoxin. Continue anticoagulation with warfarin. (4) COPD (chronic obstructive pulmonary disease): Current dyspnea appears to be secondary to CHF. Albuterol PRN. (5) Diabetes mellitus type 2, uncontrolled: DM type 2, complicated by ischemic heart disease. Usually managed with NovoLog insulin pump, metformin, semaglutide. Hgb A1c during recent admission was 13. Hold metformin and semaglutide during hospital stay. SQ Lantus / NovoLog per protocol. Pharmacy consulted to assist with glycemic management. (6) Dyslipidemia: Check lipid profile. (7) Anemia: Postop anemia with Hgb of 9.9. Fe supplementation. (8) Ankle fracture, bimalleolar, closed: S/P ORIF 01/13. Non-weightbearing LLE. VTE prophylaxis. Follow-up with Ortho 2 wks postop. (9) Brittany-prosthetic fracture around prosthetic knee: Managed nonsurgically. Immobilizer RLE. Non-weightbearing RLE. VTE prophylaxis. (10) DVT prophylaxis: On warfarin with therapeutic INR. (11) Discharge planning issues: Anticipated return to [facility] when stable. Family Medicine follow-up with Dr. Jaramillo. Cardiology follow-up with Dr. Arizmendi. Ortho follow-up with Dr. Carpenter. History of Present Illness Chief Complaint: shortness of breath, chest pressure Primary Care Provider: [facility] 70 YO female followed by Dr. Jaramillo for Family Medicine. History of ischemic heart disease, diastolic CHF, chronic AF, and other problems as noted. Hospitalized at [facility] 01/12/20 after a fall with left ankle fracture and periprosthetic fracture right femoral metaphysis. Had chest pain and rapid atrial fibrillation at time of admission. Seen by Cardiology. Acute [place] ruled out. Echo 01/12 showed mild concentric LVH, LVEF > 70%, diastolic dysfunction. Ventricular rate controlled with metoprolol and diltiazem. ORIF left ankle fracture performed by Dr. Carpenter on 01/14/20. Received IV heparin preop and SQ enoxaparin + warfarin postop. Did well postoperatively. O2 sats were in 90's on room air by day of discharge. Transferred to [facility] yesterday 01/19/20. Patient felt well last evening. This morning she developed chest pressure, diaphoresis, and SOB around 0530. Chest pressure was left parasternal. Mild cough. No pleuritic chest pain. She was brought to the ED where she was noted to be in rapid AF. Chest x-ray demonstrated CHF. Received IV furosemide with brisk diuresis and improvement of her symptoms. Allergies Allergy/AdvReac Type Severity Reaction Status Date / Time esomeprazole Allergy Severe Difficulty Verified 01/20/20 08:05 Breathing alendronate sodium Allergy Intermediate hives Verified 01/20/20 08:05 Home Medications Home Medications Medication Instructions Recorded Confirmed Type Ozempic 1 mg SUBCUT WK 01/12/20 01/20/20 History acetaminophen [Tylenol Extra 1,000 mg PO Q8H PRN 01/12/20 01/20/20 History Strength] albuterol sulfate [Ventolin HFA] 2 puff INHALATION QID PRN 01/12/20 01/20/20 History digoxin 125 mcg PO DAILY 01/12/20 01/20/20 History duloxetine 30 mg PO DAILY 01/12/20 01/20/20 History fluticasone propionate [Flonase 2 spray INTRANASAL DAILY 01/12/20 01/20/20 History Allergy Relief] hydrochlorothiazide 25 mg PO DAILY 01/12/20 01/20/20 History isosorbide mononitrate 30 mg PO QAM 01/12/20 01/20/20 History letrozole 2.5 mg PO QAM 01/12/20 01/20/20 History lisinopril 5 mg PO DAILY 01/12/20 01/20/20 History metformin 1,000 mg PO BIDM 01/12/20 01/20/20 History metoprolol succinate 25 mg PO QAM 01/12/20 01/20/20 History metoprolol succinate 50 mg PO QAM 01/12/20 01/20/20 History nitroglycerin [Nitrostat] 0.3 mg SUBLINGUAL .PRN/UD PRN 01/12/20 01/20/20 History pravastatin 20 mg PO HS 01/12/20 01/20/20 History pregabalin 150 mg PO BID 01/12/20 01/20/20 History sennosides 8.6 mg PO DAILY PRN 01/12/20 01/20/20 History sertraline 50 mg PO DAILY 01/12/20 01/20/20 History trazodone 50 mg PO HS 01/12/20 01/20/20 History warfarin 5 mg PO QPM 01/12/20 01/20/20 History acetaminophen 1,000 mg PO Q8 PRN #30 tab 01/19/20 01/20/20 Rx bisacodyl 10 mg OR DAILY PRN #10 ea 01/19/20 01/20/20 Rx calcium carbonate [Calcium 500] 500 mg PO BID #60 tab 01/19/20 01/20/20 Rx cholecalciferol (vitamin D3) 1,000 unit PO QAM #30 cap 01/19/20 01/20/20 Rx diltiazem HCl 180 mg PO QAM #30 cap 01/19/20 01/20/20 Rx docusate sodium 100 mg PO BID #60 cap 01/19/20 01/20/20 Rx insulin aspart U-100 [Novolog See Rx Instructions .ROUTE 01/19/20 01/20/20 Rx Flexpen U-100 Insulin] .COMPLEX #3 ml magnesium hydroxide [Milk of 30 ml PO DAILY PRN #30 ml 01/19/20 01/20/20 Rx Magnesia] multivitamin [Daily-Moiz] 1 tab PO QAM #30 tab 01/19/20 01/20/20 Rx oxycodone 5 mg PO Q4H PRN #10 tab 01/19/20 01/20/20 Rx sennosides [Senokot] 17.2 mg PO HS #30 tab 01/19/20 01/20/20 Rx tramadol 50 mg PO Q6H PRN #10 tab 01/19/20 01/20/20 Rx enoxaparin [Lovenox] 30 mg SUBCUT Q12H 01/20/20 01/20/20 History insulin glargine [Lantus Solostar 100 units SQ QAM 01/20/20 01/20/20 History U-100 Insulin] insulin regular human [Humulin R 1 sliding scale dose SUBCUT 01/20/20 01/20/20 History Regular U-100 Insuln] USEASDIRECTD Past Med/Surg History Medical History (Updated 01/21/20 @ 01:42 by Mack Godinez MD) Ankle fracture, bimalleolar, closed Asthma (Chronic) Atrial fibrillation Benign neoplasm of colon (Inactive) Chronic anticoagulation (Chronic) Congestive heart failure (Chronic) diastolic; LVEF by echo 01/13/20 70% COPD (chronic obstructive pulmonary disease) (Chronic) Coronary artery disease Diabetes mellitus type 2, uncontrolled Dyslipidemia (Chronic) History of DVT (deep vein thrombosis) (Inactive) "RLE x 2 in 1980s" 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) "Abnormal left breast mammogram 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 Estrogen receptor positive and progesterone receptor positive Status post lumpectomy with sentinel lymph node biopsy stage [id number] 04/07/2015 Status post completion of radiation therapy 07/21/2015 received 6640 cGy" On 07/25/15 17:54 Jayleen Bates wrote "Abnormal left breast mammogram 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 Estrogen receptor positive and progesterone receptor positive Status post lumpectomy with sentinel lymph node biopsy stage [id number] 04/07/2015 Status post completion of radiation therapy 07/21/2015 received 6640 cGy" On 07/25/15 17:49 Jayleen Bates wrote "Abnormal left breast mammogram 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 Estrogen receptor positive and progesterone receptor positive Status post lumpectomy with sentinel lymph node biopsy stage [id number] 04/07/2015" Osteoarthritis (Inactive) Osteoporosis Brittany-prosthetic fracture around prosthetic knee Right knee DJD Surgical History (Updated 01/21/20 @ 01:18 by Mack Godinez MD) H/O arthroscopic knee surgery (Inactive) H/O colonoscopy (Inactive) H/O partial mastectomy (Inactive) "left breast 04/2015 with lymph node biopsy" H/O vein stripping (Inactive) History of carpal tunnel surgery (Inactive) S/P cervical spinal fusion (Inactive) S/P dilation and curettage (Inactive) Family History (Updated 01/21/20 @ 01:19 by Mack Godinez MD) Other Breast cancer Diabetes Heart disease Social History (Updated 01/21/20 @ 01:20 by Mack Godinez MD) Preferred Language: [place] Communication Ability: Effective Photographic Technician Required: No Beliefs That Will Affect Care: None Current Living Situation: Rehab Other Information That Helps Us Care for You: No Feels Safe at Home: Yes Safety Concerns: Feels Safe At This Time Smoking Status: Former smoker Do You Dip or Chew Tobacco: No ; Second Hand Exposure: No ; Tobacco Cessation Education Requested by Patient: No Hx Alcohol Use: No Hx Substance Use: No Review of Systems Constitutional: no fever and no weight loss Eyes: no diplopia and no worsening vision Ear, Nose, Mouth, Throat: no sore throat dentures Respiratory: as per Subjective / HPI Cardiovascular: as per Subjective / HPI Gastrointestinal: no nausea, no vomiting, no constipation, no diarrhea/loose stools, no blood in stools and no melena Genitourinary: no dysuria and no hematuria Musculoskeletal: + joint pain (left ankle, right knee) and + myalgia Integumentary: no rash Neurologic: + headache(s) (mild frontal) Psychiatric: + anxiety Endocrine: blood sugars fluctuate Hematologic / Lymphatic: + easy bleeding and + easy bruising Physical Exam Constitutional: WD/WN, vitals as above no acute distress Eyes: PERRL, conjunctivae normal, anicteric sclerae ENMT: external ear and nose normal, oropharynx normal Mouth: + edentulous (upper dentures) Neck: trachea midline, no thyromegaly Respiratory: + tachypneic Auscultation: + rales Cardiovascular: Rate/Rhythm: + irregularly irregular Heart Sounds: + murmur (II/ sys murmur at base); no gallop (none appreciated, exam limited) and no cardiac rub Vessels: + JVD Extremities: normal capillary refill; no calf tenderness and no edema Gastrointestinal (Abdomen): normal bowel sounds, soft, nontender, no hepatosplenomegaly Musculoskeletal: Head/Neck/Chest: neck supple Extremities: strength 5/5 throughout; no cyanosis and no clubbing left ankle cast or splint immobilizer right lower extremity Skin: no rashes, warm and dry Neurologic: PERRL, EOMI no facial palsy no dysarthria or aphasia Psychiatric: Orientation: alert and oriented x 3 Lymphatic: no cervical lymphadenopathy Results & Data [facility] Vital Signs (Past 12 Hours) Vital Signs Temp Pulse Resp BP Pulse Ox 01/20/20 07:27 36.7 C 121 H 22 144/99 H 88 L Laboratory Results Laboratory Results - last 24 hr 01/20/20 01/20/20 01/20/20 07:25 07:25 07:50 WBC RBC Hgb Hct MCV MCH MCHC RDW Std Deviation RDW Coeff of Katrin Plt Count MPV Immature Gran % (Auto) Neut % (Auto) Lymph % (Auto) Price % (Auto) Eos % (Auto) Baso % (Auto) Immature Gran # (Auto) Neut # (Auto) Lymph # (Auto) Price # (Auto) Eos # (Auto) Baso # (Auto) Absolute Nucleated RBC Nucleated RBC % (auto) PT INR APTT PTT Ratio Sodium 136 Potassium 4.2 Chloride 101 Carbon Dioxide 28 Anion Gap 7.0 BUN 16 Creatinine 0.71 Est Cr Clr Drug Dosing 82.3 Est GFR ( Amer) 99.3 Est GFR (Non-Af Amer) 85.7 BUN/Creatinine Ratio 22.4 H Glucose 164 H POC Glucose Calcium 9.1 Total Bilirubin 0.5 AST 27 ALT 19 Alkaline Phosphatase 103 Total Creatine Kinase 62 CK-MB (CK-2) < 1.0 CK/CKMB % Calc TNP Troponin I < 0.015 NT-Pro-B Natriuret Pep 2491 H Total Protein 7.2 Albumin 2.4 L Globulin 4.8 H Albumin/Globulin Ratio 0.5 L Lipase 157 Urine Color Urine Appearance Urine pH Ur Specific [place] Urine Protein Urine Glucose (UA) Urine Ketones Urine Blood Urine Nitrite Urine Bilirubin Urine Urobilinogen Ur Leukocyte Esterase Urine WBC (Auto) Urine RBC (Auto) U Hyaline Cast (Auto) U Epithel Cells (Auto) Urine Bacteria (Auto) COVID-19 PCR NEGATIVE Influenza Type A (PCR) Neg for Influ A Influenza Type B (PCR) Neg for Influ B 01/20/20 01/20/20 01/20/20 07:50 07:50 08:29 WBC 7.72 RBC 3.43 L Hgb 9.9 L Hct 31.9 L MCV 93.0 MCH 28.9 MCHC 31.0 L RDW Std Deviation 49.8 H RDW Coeff of Katrin 14.8 H Plt Count 321 MPV 10.4 Immature Gran % (Auto) 0.4 Neut % (Auto) 81.6 Lymph % (Auto) 9.5 Price % (Auto) 6.9 Eos % (Auto) 1.3 Baso % (Auto) 0.3 Immature Gran # (Auto) 0.03 H Neut # (Auto) 6.31 Lymph # (Auto) 0.73 L Price # (Auto) 0.53 Eos # (Auto) 0.10 Baso # (Auto) 0.02 Absolute Nucleated RBC 0.03 H Nucleated RBC % (auto) 0.3 PT 24.3 H INR 2.4 H APTT 41.0 H PTT Ratio 1.5 Sodium Potassium Chloride Carbon Dioxide Anion Gap BUN Creatinine Est Cr Clr Drug Dosing Est GFR ( Amer) Est GFR (Non-Af Amer) BUN/Creatinine Ratio Glucose POC Glucose Calcium Total Bilirubin AST ALT Alkaline Phosphatase Total Creatine Kinase CK-MB (CK-2) CK/CKMB % Calc Troponin I NT-Pro-B Natriuret Pep Total Protein Albumin Globulin Albumin/Globulin Ratio Lipase Urine Color Yellow Urine Appearance Cloudy A Urine pH 7.0 Ur Specific [place] 1.015 Urine Protein Negative Urine Glucose (UA) Negative Urine Ketones Negative Urine Blood 2+ H Urine Nitrite Positive A Urine Bilirubin Negative Urine Urobilinogen Negative Ur Leukocyte Esterase 2+ H Urine WBC (Auto) >30 H Urine RBC (Auto) 0-4 U Hyaline Cast (Auto) 1-5 U Epithel Cells (Auto) 0-5 Urine Bacteria (Auto) 4+ H COVID-19 PCR Influenza Type A (PCR) Influenza Type B (PCR) 01/20/20 01/20/20 01/20/20 14:20 14:39 16:56 WBC RBC Hgb Hct MCV MCH MCHC RDW Std Deviation RDW Coeff of Katrin Plt Count MPV Immature Gran % (Auto) Neut % (Auto) Lymph % (Auto) Price % (Auto) Eos % (Auto) Baso % (Auto) Immature Gran # (Auto) Neut # (Auto) Lymph # (Auto) Price # (Auto) Eos # (Auto) Baso # (Auto) Absolute Nucleated RBC Nucleated RBC % (auto) PT INR APTT PTT Ratio Sodium Potassium 4.0 Chloride Carbon Dioxide Anion Gap BUN Creatinine Est Cr Clr Drug Dosing Est GFR ( Amer) Est GFR (Non-Af Amer) BUN/Creatinine Ratio Glucose POC Glucose 178 H 200 H Calcium Total Bilirubin AST ALT Alkaline Phosphatase Total Creatine Kinase CK-MB (CK-2) CK/CKMB % Calc Troponin I < 0.015 NT-Pro-B Natriuret Pep Total Protein Albumin Globulin Albumin/Globulin Ratio Lipase Urine Color Urine Appearance Urine pH Ur Specific [place] Urine Protein Urine Glucose (UA) Urine Ketones Urine Blood Urine Nitrite Urine Bilirubin Urine Urobilinogen Ur Leukocyte Esterase Urine WBC (Auto) Urine RBC (Auto) U Hyaline Cast (Auto) U Epithel Cells (Auto) Urine Bacteria (Auto) COVID-19 PCR Influenza Type A (PCR) Influenza Type B (PCR) 01/20/20 21:09 WBC RBC Hgb Hct MCV MCH MCHC RDW Std Deviation RDW Coeff of Katrin Plt Count MPV Immature Gran % (Auto) Neut % (Auto) Lymph % (Auto) Price % (Auto) Eos % (Auto) Baso % (Auto) Immature Gran # (Auto) Neut # (Auto) Lymph # (Auto) Price # (Auto) Eos # (Auto) Baso # (Auto) Absolute Nucleated RBC Nucleated RBC % (auto) PT INR APTT PTT Ratio Sodium Potassium Chloride Carbon Dioxide Anion Gap BUN Creatinine Est Cr Clr Drug Dosing Est GFR ( Amer) Est GFR (Non-Af Amer) BUN/Creatinine Ratio Glucose POC Glucose 109 H Calcium Total Bilirubin AST ALT Alkaline Phosphatase Total Creatine Kinase CK-MB (CK-2) CK/CKMB % Calc Troponin I NT-Pro-B Natriuret Pep Total Protein Albumin Globulin Albumin/Globulin Ratio Lipase Urine Color Urine Appearance Urine pH Ur Specific [place] Urine Protein Urine Glucose (UA) Urine Ketones Urine Blood Urine Nitrite Urine Bilirubin Urine Urobilinogen Ur Leukocyte Esterase Urine WBC (Auto) Urine RBC (Auto) U Hyaline Cast (Auto) U Epithel Cells (Auto) Urine Bacteria (Auto) COVID-19 PCR Influenza Type A (PCR) Influenza Type B (PCR) Diagnostic Findings PORTABLE CHEST X-RAY Reviewed by the undersigned and formally interpreted by Radiology: FINDINGS: Cardiac silhouette is enlarged. Calcific plaque of the thoracic aorta arch. Probable trace pleural effusions. Progressively worsened interstitial opacities. No pneumothorax. Degenerative changes of the shoulders and spine. Fusion hardware of the cervical spine. IMPRESSION: 1. Cardiomegaly with interval development of diffuse interstitial opacities suggestive of pulmonary edema. 2. Probable trace pleural effusions. ACT 112: Negative or not required by law. The above report was generated using voice recognition software. It may contain grammatical, syntax or spelling errors. Electronically signed by: Chuy Elizabeth M.D. 01/20/2020 8:25 AM ECG Additional Comments: EKG performed at 0723 reviewed and demonstrated AF at 110 / min, slight SG depression II, aVF, V6, T-wave flattening aVL, III, aVF. Code Status & VTE Plan Code Status Full code. (1) Congestive heart failure Heart failure chronicity: unspecified Heart failure type: unspecified Qualified Code(s): I50.9 - Heart failure, unspecified (2) Brittany-prosthetic fracture around prosthetic knee Encounter type: initial encounter Laterality: right Qualified Code(s): M97.11XA - Periprosthetic fracture around internal prosthetic right knee joint, initial encounter
[2020-01-20] MEDS ORDERED: INSULIN GLARGINE SOLOSTAR 100 UNITS/ML 3 ML PEN SC ONE (11:22)
[2020-01-20] MEDS ORDERED: METOPROLOL SUCC 25MG EXT REL TAB PO ONE (11:23)
[2020-01-20] MEDS ORDERED: METOPROLOL SUCC 50MG EXT REL TAB PO ONE (11:23)
[2020-01-20] MEDS ORDERED: lisinopriL 5 MG TAB PO ONE (11:25)
[2020-01-20] MEDS ORDERED: ISOSORBIDE MONO EXTENDED REL 30 MG TABCR PO ONE (11:40)
--- NOTE | 2020-01-20 12:16 | Electrocardiogram Report ---
Test Reason : Blood Pressure : / mmHG Vent. Rate : 108 BPM Atrial Rate : 120 BPM P-R Int : 000 ms QRS Dur : 084 ms QT Int : 340 ms P-R-T Axes : 000 030 -30 degrees QTc Int : 455 ms Atrial fibrillation with rapid ventricular response Nonspecific ST abnormality Abnormal ECG When compared with ECG of 12-JAN-2020 18:10, Nonspecific T wave abnormality, improved in Lateral leads Confirmed by Isaac Man ([id number]) on 01/20/2020 12:16:33 PM Referred By: Confirmed By:Mani Man
[2020-01-20] MEDS ORDERED: SENNA 8.6 MG TAB PO PRN (14:06)
[2020-01-20] MEDS ORDERED: ALBUTEROL HFA 8 GM INHALER INH PRN (14:06)
[2020-01-20] MEDS ORDERED: bisacodyL 10 MG SUPP PR PRN (14:06)
[2020-01-20] MEDS ORDERED: ACETAMINOPHEN 500 MG TAB PO PRN ×2 (14:06)
[2020-01-20] MEDS ORDERED: MAGNESIUM HYDROXIDE SUSP 30 ML UDC PO PRN (14:06)
[2020-01-20] MEDS ORDERED: PHARMACY GLYCEMIC MGMT CONSULT PRN (14:19)
--- NOTE | 2020-01-20 14:22 | Cardiology Consultation ---
Date of Consultation January 20, 2020 Assessment & Plan (1) Acute diastolic (congestive) heart failure: Patient presents with acute shortness of breath does examine his volume overloaded along with vascular congestion on chest x-ray. Responded well to the first dose of IV Lasix and will continue with 40 mg IV twice daily. We will reevaluate her volume status in the a.m. Trend troponins and repeat a limited echo for wall motion however I do not believe any further ischemic work-up would be necessary if both of those come back unremarkable. (2) Atrial fibrillation: Continue outpatient medical regimen (3) Ankle fracture, bimalleolar, closed: (4) COPD (chronic obstructive pulmonary disease): (5) Chronic anticoagulation: History of Present Illness Reason for Consultation: Shortness of breath Requesting Physician: Dr. Godinez Attending Physician: Mack Godinez MD History of Present Illness It was my pleasure to see Mrs. Mobley in consultation today January 20, 2020. She is a very pleasant 70-year-old woman who was only discharged to rehab yesterday after she was admitted for fall with a left ankle fracture as well as a right knee fracture. During that stay I followed her for atrial fibrillation with rapid ventricular response due to the pain. She was discharged to rehab yesterday and states that she was doing well. She woke up this morning with her normal routine however she became acutely short of breath. This made her become very anxious and she started sweating profusely. She said she was very scared and thought that she might . She denied any associated chest pain, palpitations or lightheadedness. EMS was summoned and upon arrival emergency department she was found to be volume overloaded and given IV Lasix with brisk diuresis. She states that she is now feeling better and her shortness of breath has resolved. Allergies Allergy/AdvReac Type Severity Reaction Status Date / Time esomeprazole Allergy Severe Difficulty Verified 01/20/20 08:05 Breathing alendronate sodium Allergy Intermediate hives Verified 01/20/20 08:05 Home Medications Home Medications Medication Instructions Recorded Confirmed Type Ozempic 1 mg SUBCUT WK 01/12/20 01/20/20 History acetaminophen [Tylenol Extra 1,000 mg PO Q8H PRN 01/12/20 01/20/20 History Strength] albuterol sulfate [Ventolin HFA] 2 puff INHALATION QID PRN 01/12/20 01/20/20 History digoxin 125 mcg PO DAILY 01/12/20 01/20/20 History duloxetine 30 mg PO DAILY 01/12/20 01/20/20 History fluticasone propionate [Flonase 2 spray INTRANASAL DAILY 01/12/20 01/20/20 History Allergy Relief] hydrochlorothiazide 25 mg PO DAILY 01/12/20 01/20/20 History isosorbide mononitrate 30 mg PO QAM 01/12/20 01/20/20 History letrozole 2.5 mg PO QAM 01/12/20 01/20/20 History lisinopril 5 mg PO DAILY 01/12/20 01/20/20 History metformin 1,000 mg PO BIDM 01/12/20 01/20/20 History metoprolol succinate 25 mg PO QAM 01/12/20 01/20/20 History metoprolol succinate 50 mg PO QAM 01/12/20 01/20/20 History nitroglycerin [Nitrostat] 0.3 mg SUBLINGUAL .PRN/UD PRN 01/12/20 01/20/20 History pravastatin 20 mg PO HS 01/12/20 01/20/20 History pregabalin 150 mg PO BID 01/12/20 01/20/20 History sennosides 8.6 mg PO DAILY PRN 01/12/20 01/20/20 History sertraline 50 mg PO DAILY 01/12/20 01/20/20 History trazodone 50 mg PO HS 01/12/20 01/20/20 History warfarin 5 mg PO QPM 01/12/20 01/20/20 History acetaminophen 1,000 mg PO Q8 PRN #30 tab 01/19/20 01/20/20 Rx bisacodyl 10 mg MN DAILY PRN #10 ea 01/19/20 01/20/20 Rx calcium carbonate [Calcium 500] 500 mg PO BID #60 tab 01/19/20 01/20/20 Rx cholecalciferol (vitamin D3) 1,000 unit PO QAM #30 cap 01/19/20 01/20/20 Rx diltiazem HCl 180 mg PO QAM #30 cap 01/19/20 01/20/20 Rx docusate sodium 100 mg PO BID #60 cap 01/19/20 01/20/20 Rx insulin aspart U-100 [Novolog See Rx Instructions .ROUTE 01/19/20 01/20/20 Rx Flexpen U-100 Insulin] .COMPLEX #3 ml magnesium hydroxide [Milk of 30 ml PO DAILY PRN #30 ml 01/19/20 01/20/20 Rx Magnesia] multivitamin [Daily-Moiz] 1 tab PO QAM #30 tab 01/19/20 01/20/20 Rx oxycodone 5 mg PO Q4H PRN #10 tab 01/19/20 01/20/20 Rx sennosides [Senokot] 17.2 mg PO HS #30 tab 01/19/20 01/20/20 Rx tramadol 50 mg PO Q6H PRN #10 tab 01/19/20 01/20/20 Rx enoxaparin [Lovenox] 30 mg SUBCUT Q12H 01/20/20 01/20/20 History insulin glargine [Lantus Solostar 100 units SQ QAM 01/20/20 01/20/20 History U-100 Insulin] insulin regular human [Humulin R 1 sliding scale dose SUBCUT 01/20/20 01/20/20 History Regular U-100 Insuln] USEASDIRECTD Patient History Medical History Atrial fibrillation Coronary artery disease Diabetes mellitus type 2, uncontrolled Osteoporosis Social History Preferred Language: Armenian Communication Ability: Effective Digester Operator Required: No Beliefs That Will Affect Care: None Current Living Situation: [facility] Other Information That Helps Us Care for You: No Feels Safe at Home: Yes Safety Concerns: Feels Safe At This Time Smoking Status: Never smoker Do You Dip or Chew Tobacco: No ; Second Hand Exposure: No ; Tobacco Cessation Education Requested by Patient: No Hx Alcohol Use: No Hx Substance Use: No Review of Systems Review of Systems: All systems reviewed & are unremarkable except as noted in HPI & below Physical Exam Physical Exam: General: Awake, alert and oriented x 3. No acute distress. HEENT: Normocephalic, atraumatic. Pupils equal, round and reactive to light and accommodation. Extraocular muscles are intact. Anicteric sclera. Moist mucous membranes. Neck: No JVD. No bruit. Cardiovascular: irregularly irregular, unable to appreciate murmur, rub or gallop. Pulmonary: Scattered rhonchi but no rales or wheezing. Abdomen: Bowel sounds x 4, soft. No rebound, guarding or tenderness. No organomegaly. Extremities: No clubbing, cyanosis or edema. +2 pedal pulses bilaterally. Skin: Warm and dry. Results & Data ([facility]) Vital Signs (Past 12 Hours) Vital Signs Temp Pulse Resp BP Pulse Ox 01/20/20 12:31 96 H 22 93 01/20/20 12:30 106 H 21 133/88 95 01/20/20 12:01 101 H 21 95 01/20/20 12:00 106 H 21 137/80 96 01/20/20 11:31 113 H 18 95 01/20/20 11:30 102 H 18 137/75 94 01/20/20 11:01 99 H 16 95 01/20/20 11:00 112 H 20 136/93 96 01/20/20 10:31 105 H 17 96 01/20/20 10:30 108 H 18 143/100 H 97 01/20/20 10:01 113 H 18 95 01/20/20 10:00 113 H 16 132/76 96 01/20/20 09:30 123 H 22 127/90 94 01/20/20 09:01 107 H 20 94 01/20/20 09:00 106 H 16 131/90 92 01/20/20 08:51 61 16 139/72 95 01/20/20 08:31 128 H 21 92 01/20/20 08:30 125 H 23 155/99 H 92 01/20/20 08:01 104 H 19 01/20/20 08:00 106 H 25 H 142/79 H 90 01/20/20 07:31 109 H 14 92 01/20/20 07:30 105 H 22 149/82 H 91 01/20/20 07:27 36.7 C 121 H 22 144/99 H 88 L 01/20/20 07:24 118 H 21 91 01/20/20 07:22 102 H 21 144/99 H 93
[2020-01-20] MEDS ORDERED: NITROGLYCERIN SL 0.4 MG/TAB TAB SL PRN (14:32)
--- NOTE | 2020-01-20 14:44 | Pharmacy Report ---
Glycemic Control Consultation - Date of Service January 20, 2020 - Scope Scope: Glycemic Pharmacist consulted for glycemic control and to write orders per [facility] inpatient glycemic control protocol. - Objective Weight: 93.9 kg Accuchecks BSG (last 24hrs): 01/20/20 01/20/20 07:50 14:20 Glucose 164 H POC Glucose 178 H Laboratory Data (last 24hrs): 01/20/20 07:50 Potassium 4.2 Carbon Dioxide 28 Anion Gap 7.0 Creatinine 0.71 Est Cr Clr Drug Dosing 82.3 - Recent Pertinent Medications Outpatient Anti-diabetic Regimen: * Lantus 100 units SQ qAM + Novolog scale * A1c = 13.5 % 01/12/2020 The patient is currently receiving: * Basal insulin: Lantus 50 units SQ x 1 * Correctional Insulin: Novolog Correction per scale ACHS Goal Range: Low 110 mg/dL - High 160 mg/dL Correction Factor: 10 mg/dL/unit * Prandial insulin: Per carb ratio of 1 unit per 3 grams CHO consumed * Oral Agents: Risk Factors for Insulin Resistance: * Diet: T2DM - Assessment & Plan Assessment & Plan: ASSESSMENT: * Ms Mobley is a 70 y/o F with a PMH of poorly controlled T2DM who presents one day after discharge. Her fasting was 164 mg/dL (this was after 120 units on 01/19/2020). Dr Godinez provided patient with Lantus 50 units SQ x 1 --- she is not eating much and has some nausea. * Will give additional 30 units for total dose today of 80 units. During previous hospitalization, patient received 120 units per day and this did not control her well. Currently are providing 66% of that Lantus dose. * For Novolog, will provide a slightly loosened scale for now. Patient was controlled with CF of 5 and CR of 1.5 --- will loosen to CF of 8 and CF of 2. Higher goal range while NPO. PLAN FOR INPATIENT GLYCEMIC CONTROL: * Basal insulin * Lantus 30 units SQ x 1 then reevaluate tomorrow * Bolus insulin * NovoLog per scale ACHS or Q6hrs while NPO * Goal Range: Low 120 mg/dL - High 160 mg/dL * Correction Factor: 8 mg/dL/unit * Nutritional / Prandial insulin per carb ratio of 1 unit per 2 grams CHO consumed * Please note that the plan above was derived based on current level of insulin resistance and hospital stress. These recommendations are appropriate for inpatient admission only. Plan of care upon discharge will need to be reassessed to avoid potential outpatient hypo/hyperglycemia. Thank you.
[2020-01-20] MEDS ORDERED: PREGABALIN 150 MG CAP PO ONE (15:00)
[2020-01-20] MEDS ORDERED: SERTRALINE HCL 50 MG TABLET PO ONE (15:00)
[2020-01-20] MEDS ORDERED: INSULIN GLARGINE SOLOSTAR 100 UNITS/ML 3 ML PEN SQ ONE (15:00)
[2020-01-20 15:10] LABS: Troponin I < 0.015 ng/ml (0-0.045)
[2020-01-20] MEDS: WARFARIN SOD 5 MG TAB PO SCH (15:56)
[2020-01-20] MEDS: DIGOXIN 0.125 MG TAB PO SCH (15:56)
[2020-01-20] MEDS: ASPIRIN 81 MG ECTAB PO SCH (15:57)
[2020-01-20] MEDS: OXYCODONE HCL IR 5 MG TAB (IMMEDIATE RELEASE) PO PRN ×2 (16:08→23:47)
[2020-01-20] MEDS: INSULIN ASPART 100 UNITS/ML 3 ML PEN SC SCH ×2 (17:52→22:43)
[2020-01-20] MEDS: FUROSEMIDE 40 MG in SYRINGE 0 ML IV SCH (17:52)
[2020-01-20] MEDS: DOCUSATE SODIUM 100 MG CAP PO SCH (22:39)
[2020-01-20] MEDS: CALCIUM CARBONATE 1250MG TAB PO SCH (22:41)
[2020-01-20] MEDS: TRAZODONE HCL 50 MG TAB PO SCH (22:41)
[2020-01-20] MEDS: PREGABALIN 150 MG CAP PO SCH (22:42)
[2020-01-20] MEDS: PRAVASTATIN SOD 20 MG TAB PO SCH (22:42)
[2020-01-20] MEDS: SENNA 8.6 MG TAB PO SCH (22:42)
[2020-01-21 04:52] LABS: INR 2.4 (0.9-1.1)
[2020-01-21 05:10] LABS: BUN Creatinine Ratio 26.6 (10-20); Calcium 9.5 mg/dl (8.5-10.1); Creatinine Clr Calc Pharmacy 81.2 ml/min; Est GFR (African American) 97.7; Est GFR (Non-African American) 84.3; Potassium 4.5 mmol/L (3.5-5.1)
[2020-01-21] MEDS: OXYCODONE HCL IR 5 MG TAB (IMMEDIATE RELEASE) PO PRN ×3 (08:47→20:50)
[2020-01-21] MEDS: PREGABALIN 150 MG CAP PO SCH ×2 (08:47→20:52)
[2020-01-21] MEDS: SERTRALINE HCL 50 MG TABLET PO SCH (08:48)
[2020-01-21] MEDS: LETROZOLE 2.5 MG TAB PO SCH (08:49)
[2020-01-21] MEDS: CHOLECALCIFEROL 1,000 UNITS 25 MCG TAB PO SCH (08:49)
[2020-01-21] MEDS: ISOSORBIDE MONO EXTENDED REL 30 MG TABCR PO SCH (08:49)
[2020-01-21] MEDS: lisinopriL 5 MG TAB PO SCH (08:49)
[2020-01-21] MEDS: ASPIRIN 81 MG ECTAB PO SCH (08:49)
[2020-01-21] MEDS: MULTIVITAMIN TAB PO SCH (08:49)
[2020-01-21] MEDS: DULOXETINE HCL 30 MG CAP PO SCH (08:49)
[2020-01-21] MEDS: DOCUSATE SODIUM 100 MG CAP PO SCH ×2 (08:50→20:51)
[2020-01-21] MEDS: CALCIUM CARBONATE 1250MG TAB PO SCH ×2 (08:50→20:51)
[2020-01-21] MEDS: FLUTICASONE PROPIONATE NA SPR 16 GM BTL SCH (08:50)
[2020-01-21] MEDS: INSULIN ASPART 100 UNITS/ML 3 ML PEN SC SCH ×4 (08:51→20:39)
[2020-01-21] MEDS: FUROSEMIDE 40 MG in SYRINGE 0 ML IV SCH (08:53)
[2020-01-21] MEDS ORDERED: METOPROLOL SUCC 25MG EXT REL TAB PO SCH (09:00)
[2020-01-21] MEDS ORDERED: METOPROLOL SUCC 25MG EXT REL TAB PO ONE (10:00)
--- NOTE | 2020-01-21 10:12 | Hospitalist Progress Note ---
Date of Service January 21, 2020 Assessment & Plan (1) Acute exacerbation of congestive heart failure: compensated overnight with intravenous diuresis. Transition to oral Lasix in am per cardiology. (2) Coronary artery disease: h/o CAD, denies chest pain, serial trop negative. EKG nonischemic. Initial chest pressure likely related to acute heart failure and related dyspnea which was distressing for her. Cont BB, Imdur XR, Pravastatin. Baby aspirin added. (3) Atrial fibrillation: chronic afib. Metoprolol increased by cardiology to 100mg daily. Cont Cont digoxin. Diltiazem dc'd. Cont anticoagulation with warfarin. (4) Ankle fracture, bimalleolar, closed: S/P ORIF 01/13. Non-weightbearing LLE. VTE prophylaxis. Follow-up with Ortho 2 wks postop. (5) Brittany-prosthetic fracture around prosthetic knee: Managed nonsurgically. Immobilizer RLE. Non-weightbearing RLE. VTE prophylaxis. (6) HTN (hypertension): HCTz stopped and Lasix restarted. Monitor blood pressure with the change. (7) COPD (chronic obstructive pulmonary disease): chronic, stable. Dyspnea related to heart failure is improved. No wheezing on exam. Bronchodilators PRN. (8) Diabetes mellitus type 2, uncontrolled: DM type 2, complicated by ischemic heart disease. Usually managed with NovoLog insulin pump, metformin, semaglutide. Hgb A1c during recent admission was 13. Hold metformin and semaglutide during hospital stay. SQ Lantus / NovoLog per protocol. Pharmacy consulted to assist with glycemic management. Currently at inpatient glucose goal. (9) Anemia: s/p L ankle ORIF on 01/14/2020. Postop anemia with Hgb of 9.9. Fe supplementation. (10) DVT prophylaxis: On warfarin with therapeutic INR. Full Code Dispo-discharge to [facility] once oxygen needs resolve/improve and she remains medically stable for 24 hours. Cont telemetry monitoring for now with medication adjustments. Brandi Allen DO [facility] Hospitalist Admission and Anticipated Discharge Date Admission Date: January 20, 2020 Subjective Pt feeling well and SOB has resolved. Denies chest pain. Denies other symptoms at this time. She denies having heart failure in the past, denies any issues leading up to this. She is unsure of her post-op ortho instructions and if there were any changes in her medications recently. She denies any h/o CAD in the past Reports a known h/o atrial fibrillation. 1.6L diuresis with IV diuretics overnight Cardiology is following the patient and has transitioned her to oral lasix at this point. Telemetry review reveals some Atrial fibrillation w RVR with HR into the 150s this morning. Review of Systems Review of Systems: All systems reviewed & are unremarkable except as noted in Subjective Physical Exam Physical Exam: CONSTITUTIONAL: WNWD, vitals as above, generally well- appearing EYES: , normal conjunctivae, no scleral icterus ENT: external ear and nose normal, MMM NECK: trachea midline RESPIRATORY: clear to auscultation bilaterally, no crackles, rales or wheezes, normal respiratory effort CARDIOVASCULAR: irregular rate and irreg rhythm, S1 and 2 heard without murmurs, gallops or rubs, no JVD, no peripheral edema, no hepatojugular reflux seen GASTROINTESTINAL: soft, nontender, nondistended, no guarding MUSCULOSKELETAL: strength 5/5 throughout, head is normocephalic and atraumatic SKIN: warm and dry NEUROLOGIC: No facial palsy, no dysarthria. CN 2-12 grossly intact, no sensory deficit, normal cognition, normal speech, no gross focal deficits. PSYCHIATRIC: alert cooperative and oriented Results & Data Results & Data ([facility]) Vital Signs (Past 12 Hours) Vital Signs Temp Pulse Resp BP Pulse Ox 01/21/20 04:00 36.7 C 84 14 132/75 94 01/21/20 00:00 36.6 C 83 19 114/62 89 L 01/20/20 22:30 92 H 19 95 Laboratory Results [facility] 01/20/20 01/21/20 14:39 04:15 Sodium 139 Potassium 4.0 4.5 Chloride 103 Carbon Dioxide 32 BUN 19 H Creatinine 0.72 Glucose 92 Calcium 9.5 Cardiac Enzymes 01/20/20 Range/Units 14:39 Troponin I < 0.015 (0-0.045) ng/ml Medications Administered Current Inpatient Medications Acetaminophen (Tylenol) 1,000 mg PO Q8 PRN PRN Reason: pain Stop: 02/19/20 14:05 Albuterol (Ventolin Hfa) 2 puffs INH QID PRN PRN Reason: Shortness Of Breath Or Wheezing Stop: 02/19/20 14:05 Aspirin (Ecotrin Ectab) 81 mg PO QAM [facility] Stop: 02/19/20 14:59 Last Admin: 01/21/20 08:49 Dose: 81 mg Documented by: Bisacodyl (Dulcolax) 10 mg [place] DAILY PRN PRN Reason: constipation Stop: 02/19/20 14:05 Calcium Carbonate (Os-Jaswinder 500) 1,250 mg PO BID [facility] Stop: 02/19/20 20:59 Last Admin: 01/21/20 08:50 Dose: 1,250 mg Documented by: Digoxin (Lanoxin) 0.125 mg PO DAILY@1600 [facility] Stop: 02/19/20 15:59 Last Admin: 01/20/20 15:56 Dose: 0.125 mg Documented by: Docusate Sodium (Colace) 100 mg PO BID [facility] Stop: 02/19/20 20:59 Last Admin: 01/21/20 08:50 Dose: 100 mg Documented by: Duloxetine HCl (Cymbalta) 30 mg PO DAILY [facility] Stop: 02/20/20 08:59 Last Admin: 01/21/20 08:49 Dose: 30 mg Documented by: Ferrous Sulfate (Feosol) 325 mg PO DAILY@12 [facility] Stop: 02/20/20 11:59 Fluticasone Propionate (Flonase) 2 sprays NA DAILY [facility] Stop: 02/20/20 08:59 Last Admin: 01/21/20 08:50 Dose: Not Given Documented by: Furosemide (Lasix) 20 mg PO QAM [facility] Stop: 02/21/20 08:59 Insulin Aspart (Novolog Flexpen) 0 units SC [facility] Stop: 02/19/20 11:36 Last Admin: 01/21/20 08:51 Dose: 15 units Documented by: Isosorbide Mononitrate (Imdur Extended Rel) 30 mg PO QAM [facility] Stop: 02/20/20 08:59 Last Admin: 01/21/20 08:49 Dose: 30 mg Documented by: Letrozole (Femara) 2.5 mg PO QAM [facility] Stop: 02/20/20 08:59 Last Admin: 01/21/20 08:49 Dose: 2.5 mg Documented by: Lisinopril (Zestril) 5 mg PO DAILY [facility] Stop: 02/20/20 08:59 Last Admin: 01/21/20 08:49 Dose: 5 mg Documented by: Magnesium Hydroxide (Milk Of Magnesia) 30 ml PO DAILY PRN PRN Reason: constipation Stop: 02/19/20 14:05 Metoprolol Su[facility] ([facility]l) [facility]: 02/21/20 08:59 Miscellaneous Information (Consult Glycemic Management Pharmacy) 1 ea N/A UD PRN PRN Reason: Consult Stop: 02/19/20 14:18 Multivitamins ([facility]ivitamin Tab) [facility] Stop: 02/20/20 08:59 Last Admin: 01/21/20 08:49 Dose: 1 tab Documented by: Nitroglycerin (Nitrostat) 0.4 mg SL PRN PRN PRN Reason: CHEST PAIN Stop: 02/19/20 14:31 Oxycodone HCl (Roxicodone Immediate Rel) 5 mg PO Q4H PRN PRN Reason: SEVERE PAIN Stop: 02/03/20 14:34 Last Admin: 01/21/20 08:47 Dose: 5 mg Documented by: Pravastatin Sodium (Pravachol) 20 mg PO [facility] Stop: 02/19/20 20:59 Last Admin: 01/20/20 22:42 Dose: 20 mg Documented by: Pregabalin (Lyrica) 150 mg PO BID [facility] Stop: 02/19/20 20:59 Last Admin: 01/21/20 08:47 Dose: 150 mg Documented by: Sennosides (Senokot) 17.2 mg PO [facility] Stop: 02/19/20 20:59 Last Admin: 01/20/20 22:42 Dose: 17.2 mg Documented by: Sennosides (Senokot) 8.6 mg PO DAILY PRN PRN Reason: Constipation Stop: 02/19/20 14:05 Sertraline HCl (Zoloft) 50 mg PO DAILY [facility] Stop: 02/20/20 08:59 Last Admin: 01/21/20 08:48 Dose: 50 mg Documented by: Tramadol HCl (Ultram) 50 mg PO Q6H PRN PRN Reason: pain Stop: 02/19/20 14:05 Trazodone HCl (Desyrel) 50 mg PO [facility] Stop: 02/19/20 20:59 Last Admin: 01/20/20 22:41 Dose: 50 mg Documented by: Vitamin D (Vitamin D3) 1,000 units PO QAM [facility] Stop: 02/20/20 08:59 Last Admin: 01/21/20 08:49 Dose: 1,000 units Documented by: Warfarin Sodium (Coumadin) 5 mg PO DAILY@1600 [facility] Stop: 02/19/20 15:59 Last Admin: 01/20/20 15:56 Dose: 5 mg Documented by: (1) Brittany-prosthetic fracture around prosthetic knee Encounter type: initial encounter Laterality: right Qualified Code(s): M97.11XA - Periprosthetic fracture around internal prosthetic right knee joint, initial encounter
[2020-01-21] MEDS: FERROUS SULFATE 325 MG TAB PO SCH (11:12)
--- NOTE | 2020-01-21 12:28 | Pharmacy Report ---
Glycemic Control Progress Note - Date of Service January 21, 2020 - Scope Glycemic Pharmacist consulted for glycemic control to write orders per [facility] inpatient glycemic control protocol. - Objective Accuchecks BSG(last 24 hours):: 01/20/20 01/20/20 01/20/20 14:20 16:56 21:09 Glucose POC Glucose 178 H 200 H 109 H 01/21/20 01/21/20 04:15 11:08 Glucose 92 POC Glucose 180 H - Recent Pertinent Medications The patient is currently receiving: * Basal insulin: Lantus 80 units x 1 * Correctional Insulin: Novolog Correction per scale ACHS Goal Range: Low 120 mg/dL - High 160 mg/dL Correction Factor: 8 mg/dL/unit * Prandial insulin: Per carb ratio of 1 unit per 2 grams CHO consumed - Outpatient Anti-Diabetic Meds Novolog pump - 5 units/hr as basal fixed doses of plus CF of 20 - Assessment & Plan ASSESSMENT: * See progress note from 01/20/20 for more background info, in short: * Pt receiving SQ basal bolus insulin regimen for hyperglycemia secondary to baseline DM (outpatient regimen on hold). * Patient is currently receiving an average of 106 units of insulin per day * 80 units of basal insulin * 26 units of prandial/correctional insulin * BSGs ranging 109 - 200 mg/dl over the past 24hrs * Changes needed to insulin regimen: * AM Fasting BSG = 92 mg/dl. This is in goal range for patient based on inpatient targets and co-morbidities. The patient received a 40% lower Lantus dose yesterday (80 units) due to decreased PO intake. Between the last hospitalization and this one, this is the lowest fasting. Will continue with this regimen as do not feel comfortable increasing at this point back to previous dose. May need increased tomorrow if oral intake increases substantially. * Post-prandial BSGs are okay. Patient trended downwards yesterday after dinner so CF is okay. Unable to evaluate lunch today as it was only 2 hours after breakfast. * Total daily dose = ? units. This admission is currently vastly different from previous admission when she required > 200 units/day. * Additional notes / comments: hold metformin during diuresis PLAN FOR INPATIENT GLYCEMIC CONTROL: * Continuing Lantus 80 units SQ daily * Continuing correction factor to 8 mg/dl/unit * Continuing carb ratio to 1 unit per 2 grams CHO consumed * Continuing goal range of Low 120 mg/dL - High 160 mg/dL * Please note that the plan above was derived based on current level of insulin resistance and hospital stress. These recommendations are appropriate for inpatient admission only. Plan of care upon discharge will need to be reassessed to avoid potential outpatient hypo/hyperglycemia. Thank you.
[2020-01-21] MEDS ORDERED: INSULIN GLARGINE SOLOSTAR 100 UNITS/ML 3 ML PEN SC ONE ×2 (12:30)
--- NOTE | 2020-01-21 14:15 | Cardiology Progress Note ---
Date of Service January 21, 2020 Assessment & Plan (1) Acute diastolic (congestive) heart failure: Has diuresed well and now does not examine as volume overloaded. Recommend starting Lasix 40 mg p.o. daily with an extra dose as needed volume overload. No other testing is necessary at this time. Okay to discharge from a cardiac standpoint. (2) Atrial fibrillation: Continue outpatient medical regimen (3) Ankle fracture, bimalleolar, closed: (4) COPD (chronic obstructive pulmonary disease): (5) Chronic anticoagulation: Subjective Patient seen and examined, chart reviewed. States that she feels well today. Notes that shortness of breath is resolved and denies any other cardiac complaints of chest pain, palpitations, lightheadedness, dizziness or syncope. Has diuresed well overnight. Telemetry reviewed: Atrial fibrillation with variable rate response in the 80s to 150s. Review of Systems Review of Systems: All systems reviewed & are unremarkable except as noted in HPI & below Physical Exam Physical Exam: General: Awake, alert and oriented x 3. No acute distress. HEENT: Normocephalic, atraumatic. Pupils equal, round and reactive to light and accommodation. Extraocular muscles are intact. Anicteric sclera. Moist mucous membranes. Neck: No JVD. No bruit. Cardiovascular: irregularly irregular, unable to appreciate murmur, rub or gallop. Pulmonary: Clear to auscultation bilaterally. No rales, rhonchi, or wheezing. Abdomen: Bowel sounds x 4, soft. No rebound, guarding or tenderness. No organomegaly. Extremities: No clubbing, cyanosis or edema. +2 pedal pulses bilaterally. Skin: Warm and dry. Results & Data Vital Signs (Past 12 Hours) Vital Signs Temp Pulse Pulse Resp BP BP Pulse Ox 01/21/20 11:32 36.6 C 92 H 18 116/69 98 01/21/20 04:00 36.7 C 84 14 132/75 94
[2020-01-21] MEDS: WARFARIN SOD 5 MG TAB PO SCH (16:58)
[2020-01-21] MEDS: DIGOXIN 0.125 MG TAB PO SCH (16:59)
[2020-01-21] MEDS: TRAZODONE HCL 50 MG TAB PO SCH (20:51)
[2020-01-21] MEDS: PRAVASTATIN SOD 20 MG TAB PO SCH (20:51)
[2020-01-21] MEDS: SENNA 8.6 MG TAB PO SCH (20:52)
[2020-01-22] MEDS: OXYCODONE HCL IR 5 MG TAB (IMMEDIATE RELEASE) PO PRN ×2 (04:12→09:47)
[2020-01-22 04:57] LABS: INR 2.2 (0.9-1.1); Prothrombin Time 22.3 Seconds (9.0-12.0)
[2020-01-22 05:10] LABS: BUN Creatinine Ratio 24.7 (10-20); Calcium 9.7 mg/dl (8.5-10.1); Creatinine Clr Calc Pharmacy 77.2 ml/min; Est GFR (African American) 97.7; Est GFR (Non-African American) 84.3; Potassium 3.8 mmol/L (3.5-5.1)
[2020-01-22] MEDS: FUROSEMIDE 40 MG TAB PO SCH (08:11)
[2020-01-22] MEDS: MULTIVITAMIN TAB PO SCH (08:11)
[2020-01-22] MEDS: DOCUSATE SODIUM 100 MG CAP PO SCH ×2 (08:11→20:49)
[2020-01-22] MEDS: CALCIUM CARBONATE 1250MG TAB PO SCH ×2 (08:11→20:52)
[2020-01-22] MEDS: ISOSORBIDE MONO EXTENDED REL 30 MG TABCR PO SCH (08:12)
[2020-01-22] MEDS: DULOXETINE HCL 30 MG CAP PO SCH (08:14)
[2020-01-22] MEDS: CHOLECALCIFEROL 1,000 UNITS 25 MCG TAB PO SCH (08:15)
[2020-01-22] MEDS: ASPIRIN 81 MG ECTAB PO SCH (08:15)
[2020-01-22] MEDS: SERTRALINE HCL 50 MG TABLET PO SCH (08:15)
[2020-01-22] MEDS: lisinopriL 5 MG TAB PO SCH ×2 (08:15→11:38)
[2020-01-22] MEDS: FLUTICASONE PROPIONATE NA SPR 16 GM BTL SCH (08:16)
[2020-01-22] MEDS: LETROZOLE 2.5 MG TAB PO SCH (08:17)
[2020-01-22] MEDS: PREGABALIN 150 MG CAP PO SCH ×2 (08:17→20:55)
[2020-01-22] MEDS: INSULIN GLARGINE SOLOSTAR 100 UNITS/ML 3 ML PEN SC SCH (08:20)
[2020-01-22] MEDS: INSULIN ASPART 100 UNITS/ML 3 ML PEN SC SCH ×4 (08:21→20:57)
[2020-01-22] MEDS ORDERED: METOPROLOL SUCC 50MG EXT REL TAB PO SCH (09:00)
[2020-01-22] MEDS ORDERED: FUROSEMIDE 20 MG TAB PO SCH (09:00)
--- NOTE | 2020-01-22 10:43 | Hospitalist Progress Note ---
Date of Service January 22, 2020 Assessment & Plan (1) UTI due to Klebsiella species: Keflex x 5 days, Cisneros removed. (2) Hypoxia, sleep related: Will perform overnight pulse oximetry test to see if she qualifies for nocturnal oxygen. (3) Hypotension: Lisinopril held this am, SBP was 112 on recheck < 1 hour later. Pt did receive her elevated dose of Toprol XL today. (4) Acute exacerbation of congestive heart failure: compensated. Cont Lasix 40mg PO daily. (5) Coronary artery disease: h/o CAD, denies chest pain, serial trop negative. EKG nonischemic. Initial chest pressure likely related to acute heart failure and related dyspnea which was distressing for her. Cont BB, Imdur XR, Pravastatin. Baby aspirin ad ded. (6) Atrial fibrillation: chronic afib. Metoprolol increased by cardiology to 100mg daily. Cont Cont digoxin. Diltiazem dc'd. Cont anticoagulation with warfarin. (7) Ankle fracture, bimalleolar, closed: S/P ORIF 01/13. Non-weightbearing LLE. VTE prophylaxis. Follow-up with Ortho 2 wks postop. (8) Brittany-prosthetic fracture around prosthetic knee: Managed nonsurgically. Immobilizer RLE. Non-weightbearing RLE. VTE prophylaxis. (9) COPD (chronic obstructive pulmonary disease): chronic, stable. Dyspnea related to heart failure is improved. No wheezing on exam. Bronchodilators PRN. (10) Diabetes mellitus type 2, uncontrolled: DM type 2, complicated by ischemic heart disease. Usually managed with NovoLog insulin pump, metformin, semaglutide. Hgb A1c during recent admission was 13. Hold metformin and semaglutide during hospital stay. SQ Lantus / NovoLog per protocol. Pharmacy consulted to assist with glycemic management. Currently at inpatient glucose goal. (11) Anemia: s/p L ankle ORIF on 01/14/2020. Postop anemia with Hgb of 9.9. Fe supplementation. (12) DVT prophylaxis: On warfarin with therapeutic INR. Full Code Dispo-discharge to once oxygen needs resolve/improve and she remains medically stable for 24 hours. Cont telemetry monitoring for now with medication adjustments. Shooting for Sunday discharge. Brandi Allen DO [facility] Hospitalist Admission and Anticipated Discharge Date Admission Date: January 20, 2020 Subjective feeling better, doing well off oxygen, however, she is desaturating into the high 90s when sleeping. discussed this w nurse and we will perform an overnight pulse oximetry study. post-op pain is bad but patient is currently taking medication for this. lower BP this morning noted. denies chest pain Review of Systems Review of Systems: All systems reviewed & are unremarkable except as noted in Subjective Physical Exam Physical Exam: CONSTITUTIONAL: WNWD, vitals as above, generally well- appearing EYES: normal conjunctivae, no scleral icterus ENT: external ear and nose normal, MMM NECK: trachea midline RESPIRATORY: clear to auscultation bilaterally, no crackles, rales or wheezes, normal respiratory effort CARDIOVASCULAR: irregular rate and irreg rhythm, S1 and 2 heard without murmurs, gallops or rubs, no JVD, no peripheral edema GASTROINTESTINAL: soft, nontender, nondistended, no guarding MUSCULOSKELETAL: strength 5/5 throughout, head is normocephalic and atraumatic SKIN: warm and dry NEUROLOGIC: No facial palsy, no dysarthria. CN 2-12 grossly intact, no sensory deficit, normal cognition, normal speech, no gross focal deficits. PSYCHIATRIC: alert cooperative and oriented Results & Data Results & Data ([facility]) Vital Signs (Past 12 Hours) Vital Signs Temp Pulse Pulse Resp BP BP Pulse Ox 01/22/20 09:33 101 H 29 H 85/60 L 01/22/20 09:30 91 H 16 112/64 95 01/22/20 09:00 97 H 14 114/67 93 01/22/20 08:00 37.1 C 103 H 15 94/68 L 94 01/22/20 07:00 82 17 89 L 01/22/20 04:00 37.0 C 86 18 121/70 94 01/22/20 00:05 37.3 C 87 20 104/66 96 Laboratory Results [facility] 01/22/20 04:19 Sodium 141 Potassium 3.8 D Chloride 103 Carbon Dioxide 32 BUN 18 Creatinine 0.72 Glucose 100 H Calcium 9.7 Medications Administered Current Inpatient Medications Acetaminophen (Tylenol) 1,000 mg PO Q8 PRN PRN Reason: pain Stop: 02/19/20 14:05 Albuterol (Ventolin Hfa) 2 puffs INH QID PRN PRN Reason: Shortness Of Breath Or Wheezing Stop: 02/19/20 14:05 Aspirin (Ecotrin Ectab) [facility]: 02/19/20 14:59 Last Admin: 01/22/20 08:15 Dose: 81 mg Documented by: Bisacodyl (Dulcolax) 10 mg [place] DAILY PRN PRN Reason: constipation Stop: 02/19/20 14:05 Calcium Carbonate (Os-Jaswinder 500) 1,250 mg PO BID [facility] Stop: 02/19/20 20:59 Last Admin: 01/22/20 08:11 Dose: 1,250 mg Documented by: Cephalexin HCl (Keflex) 500 mg PO Q12H [facility] Stop: 01/26/20 22:46 Last Admin: 01/22/20 11:39 Dose: 500 mg Documented by: Digoxin (Lanoxin) 0.125 mg PO DAILY@1600 [facility] Stop: 02/19/20 15:59 Last Admin: 01/22/20 17:13 Dose: 0.125 mg Documented by: Docusate Sodium (Colace) 100 mg PO BID [facility] Stop: 02/19/20 20:59 Last Admin: 01/22/20 08:11 Dose: 100 mg Documented by: Ferrous Sulfate (Feosol) 325 mg PO DAILY@12 [facility] Stop: 02/20/20 11:59 Last Admin: 01/22/20 11:40 Dose: 325 mg Documented by: Fluticasone Propionate (Flonase) 2 sprays NA DAILY [facility] Stop: 02/20/20 08:59 Last Admin: 01/22/20 08:16 Dose: Not Given Documented by: Furosemide (Lasix) 40 [facility] PO [facility] Stop: 02/21/20 08:59 Last Admin: 01/22/20 08:11 Dose: 40 mg Documented by: Insulin Aspart (Novolog Flexpen) 0 units SC [facility] Stop: 02/19/20 11:36 Last Admin: 01/22/20 17:15 Dose: 11 units Documented by: Insulin Glargine (Lantus Solostar Pen) 0 units SC [facility]; Protocol Stop: 02/21/20 08:59 Last Admin: 01/22/20 08:20 Dose: 80 units Documented by: Isosorbide Mononitrate (Imdur Extended Rel) 30 mg PO [facility] Stop: 02/20/20 08:59 Last Admin: 01/22/20 08:12 Dose: 30 mg Documented by: Letrozole (Femara) 2.5 mg PO QAM [facility] Stop: 02/20/20 08:59 Last Admin: 01/22/20 08:17 Dose: 2.5 mg Documented by: Lisinopril (Zestril) 5 mg PO DAILY [facility] Stop: 02/20/20 08:59 Last Admin: 01/22/20 11:38 Dose: Not Given Documented by: Magnesium Hydroxide (Milk Of Magnesia) 30 ml PO DAILY PRN PRN Reason: constipation Stop: 02/19/20 14:05 Metoprolol Succinate (Toprol Xl) 50 mg PO BID [facility] Stop: 02/21/20 20:59 Miscellaneous Information (Consult Glycemic Management Pharmacy) 1 ea N/A UD PRN PRN Reason: Consult Stop: 02/19/20 14:18 Multivitamins (Multivitamin Tab) [facility] tab [facility]: 02/20/20 08:59 Last Admin: 01/22/20 08:11 Dose: 1 tab Documented by: Nitroglycerin (Nitrostat) 0.4 mg SL PRN PRN PRN Reason: CHEST PAIN Stop: 02/19/20 14:31 Oxycodone HCl (Roxicodone Immediate Rel) 5 mg PO Q4H PRN PRN Reason: SEVERE PAIN Stop: 02/03/20 14:34 Last Admin: 01/22/20 09:47 Dose: 5 mg Documented by: Pravastatin Sodium (Pravachol) 20 mg PO [facility] Stop: 02/19/20 20:59 Last Admin: 01/21/20 20:51 Dose: 20 mg Documented by: Pregabalin (Lyrica) 150 mg PO BID [facility] Stop: 02/19/20 20:59 Last Admin: 01/22/20 08:17 Dose: 150 mg Documented by: Sennosides (Senokot) 17.2 mg PO [facility] Stop: 02/19/20 20:59 Last Admin: 01/21/20 20:52 Dose: 17.2 mg Documented by: Sennosides (Senokot) 8.6 mg PO DAILY PRN PRN Reason: Constipation Stop: 02/19/20 14:05 Sertraline HCl (Zoloft) 50 mg PO DAILY [facility] Stop: 02/20/20 08:59 Last Admin: 01/22/20 08:15 Dose: 50 mg Documented by: Tramadol HCl (Ultram) 50 mg PO Q6H PRN PRN Reason: pain Stop: 02/19/20 14:05 Last Admin: 01/22/20 12:56 Dose: 50 mg Documented by: Trazodone HCl (Desyrel) 50 mg PO HS [facility] Stop: 02/19/20 20:59 Last Admin: 01/21/20 20:51 Dose: 50 mg Documented by: Vitamin D (Vitamin D3) 1,000 units PO QAM [facility] Stop: 02/20/20 08:59 Last Admin: 01/22/20 08:15 Dose: 1,000 units Documented by: Warfarin Sodium (Coumadin) 5 mg PO DAILY@1600 [facility] Stop: 02/19/20 15:59 Last Admin: 01/22/20 17:12 Dose: 5 mg Documented by: (1) Brittany-prosthetic fracture around prosthetic knee Encounter type: initial encounter Laterality: right Qualified Code(s): M97.11XA - Periprosthetic fracture around internal prosthetic right knee joint, initial encounter
[2020-01-22] MEDS: cephALEXin 500 MG CAP PO SCH ×2 (11:39→23:23)
[2020-01-22] MEDS: FERROUS SULFATE 325 MG TAB PO SCH (11:40)
[2020-01-22] MEDS: TRAMADOL HCL 50 MG TABLET PO PRN ×2 (12:56→20:04)
--- NOTE | 2020-01-22 14:03 | Cardiology Progress Note ---
Date of Service January 22, 2020 Assessment & Plan (1) Acute diastolic (congestive) heart failure: Has diuresed well and now does not examine as volume overloaded. Recommend starting Lasix 40 mg p.o. daily with an extra dose as needed volume overload. No other testing is necessary at this time. Okay to discharge from a cardiac standpoint. (2) Atrial fibrillation: Continue outpatient medical regimen (3) Ankle fracture, bimalleolar, closed: (4) COPD (chronic obstructive pulmonary disease): (5) Chronic anticoagulation: Subjective Patient seen and examined, chart reviewed. States that she is feeling relatively well today, a little dizziness but otherwise well. No acute events reported overnight. Telemetry reviewed: Atrial fibrillation rate controlled in the 80s to 90s. Review of Systems Review of Systems: All systems reviewed & are unremarkable except as noted in HPI & below Physical Exam Physical Exam: General: Awake, alert and oriented x 3. No acute distress. HEENT: Normocephalic, atraumatic. Pupils equal, round and reactive to light and accommodation. Extraocular muscles are intact. Anicteric sclera. Moist mucous membranes. Neck: No JVD. No bruit. Cardiovascular: irregularly irregular, unable to appreciate murmur, rub or gallop. Pulmonary: Clear to auscultation bilaterally. No rales, rhonchi, or wheezing. Abdomen: Bowel sounds x 4, soft. No rebound, guarding or tenderness. No organomegaly. Extremities: No clubbing, cyanosis or edema. +2 pedal pulses bilaterally. Skin: Warm and dry. Results & Data Vital Signs (Past 12 Hours) Vital Signs Temp Pulse Pulse Resp BP BP Pulse Ox 01/22/20 09:33 101 H 29 H 85/60 L 01/22/20 09:30 91 H 16 112/64 95 01/22/20 09:00 97 H 14 114/67 93 01/22/20 08:00 37.1 C 103 H 15 94/68 L 94 01/22/20 07:00 82 17 89 L 01/22/20 04:00 37.0 C 86 18 121/70 94
--- NOTE | 2020-01-22 14:28 | Pharmacy Report ---
Pharmacy Glycemic Short Note 2 - Date of Service January 22, 2020 - Glycemic Short BSG Results (Last 24 hours): 01/21/20 01/21/20 01/22/20 16:57 20:36 04:19 Glucose 100 H POC Glucose 184 H 105 H 01/22/20 01/22/20 07:47 11:59 Glucose POC Glucose 121 H 99 ASSESSMENT: See progress note from 01/20/20 for more background info, in short: * Pt receiving SQ basal bolus insulin regimen for hyperglycemia secondary to baseline DM (outpatient regimen on hold). * Patient is currently receiving an average of 122 units of insulin per day (2 day average), yesterday receiving: * 80 units of basal insulin * 58 units of prandial/correctional insulin * BSGs ranging 92-184 mg/dl over the past 24hrs * Changes needed to insulin regimen: * AM Fasting BSG = 100 (lab) POC 121 mg/dl. This is in goal range for patient based on inpatient targets and co-morbidities. The patient is receiving a 40% lower Lantus dose (80 units) due to decreased PO intake. Will continue with this regimen for now but if fasting continues to trend up may need increased tomorrow. * Post-prandial BSGs are okay. Did loosen carb ratio slightly * Total daily dose = ? units. This admission is currently vastly different from previous admission when she required > 200 units/day. * Additional notes / comments: hold metformin during diuresis PLAN FOR INPATIENT GLYCEMIC CONTROL: * Continuing Lantus 80 units SQ daily * Continuing correction factor to 8 mg/dl/unit * Continuing carb ratio to 1 unit per 2.5 grams CHO consumed * Continuing goal range of Low 120 mg/dL - High 160 mg/dL
[2020-01-22] MEDS: WARFARIN SOD 5 MG TAB PO SCH (17:12)
[2020-01-22] MEDS: DIGOXIN 0.125 MG TAB PO SCH (17:13)
[2020-01-22] MEDS: TRAZODONE HCL 50 MG TAB PO SCH (20:49)
[2020-01-22] MEDS: SENNA 8.6 MG TAB PO SCH (20:50)
[2020-01-22] MEDS: METOPROLOL SUCC 50MG EXT REL TAB PO SCH (20:52)
[2020-01-22] MEDS: PRAVASTATIN SOD 20 MG TAB PO SCH (20:53)
[2020-01-22] MEDS ORDERED: SULFAMETHOXAZOLE/TRIMETHOPRIM DS 800/160MG TAB PO SCH (21:00)
[2020-01-23 04:50] LABS: INR 1.9 (0.9-1.1); Prothrombin Time 19.3 Seconds (9.0-12.0)
[2020-01-23 06:10] LABS: BUN Creatinine Ratio 25.7 (10-20); Calcium 9.3 mg/dl (8.5-10.1); Creatinine Clr Calc Pharmacy 70.6 ml/min; Est GFR (Non-African American) 74.2; Potassium 4.4 mmol/L (3.5-5.1)
[2020-01-23] MEDS: CHOLECALCIFEROL 1,000 UNITS 25 MCG TAB PO SCH (08:02)
[2020-01-23] MEDS: CALCIUM CARBONATE 1250MG TAB PO SCH (08:03)
[2020-01-23] MEDS: SERTRALINE HCL 50 MG TABLET PO SCH (08:03)
[2020-01-23] MEDS: FUROSEMIDE 40 MG TAB PO SCH (08:03)
[2020-01-23] MEDS: ISOSORBIDE MONO EXTENDED REL 30 MG TABCR PO SCH (08:03)
[2020-01-23] MEDS: DOCUSATE SODIUM 100 MG CAP PO SCH (08:05)
[2020-01-23] MEDS: ASPIRIN 81 MG ECTAB PO SCH (08:05)
[2020-01-23] MEDS: MULTIVITAMIN TAB PO SCH (08:05)
[2020-01-23] MEDS: METOPROLOL SUCC 50MG EXT REL TAB PO SCH (08:06)
[2020-01-23] MEDS: LETROZOLE 2.5 MG TAB PO SCH (08:09)
[2020-01-23] MEDS: INSULIN ASPART 100 UNITS/ML 3 ML PEN SC SCH ×2 (08:09→12:31)
[2020-01-23] MEDS: PREGABALIN 150 MG CAP PO SCH (08:11)
[2020-01-23] MEDS: OXYCODONE HCL IR 5 MG TAB (IMMEDIATE RELEASE) PO PRN (08:11)
[2020-01-23] MEDS: FLUTICASONE PROPIONATE NA SPR 16 GM BTL SCH (08:12)
[2020-01-23] MEDS: INSULIN GLARGINE SOLOSTAR 100 UNITS/ML 3 ML PEN SC SCH (10:28)
[2020-01-23] MEDS: cephALEXin 500 MG CAP PO SCH (10:29)
[2020-01-23] MEDS ORDERED: LANTUS PER UNIT CHARGE SQ ONE (11:30)
[2020-01-23] MEDS: FERROUS SULFATE 325 MG TAB PO SCH (12:31)
--- NOTE | 2020-01-23 14:01 | Discharge Summary ---
Date of Service January 23, 2020 Admission HPI Per Admitting Provider 70 YO female followed by Dr. Jaramillo for Family Medicine. History of ischemic heart disease, diastolic CHF, chronic AF, and other problems as noted. Hospitalized at [facility] 01/12/20 after a fall with left ankle fracture and periprosthetic fracture right femoral metaphysis. Had chest pain and rapid atrial fibrillation at time of admission. Seen by Cardiology. Acute MT ruled out. Echo 01/12 showed mild concentric LVH, LVEF > 70%, diastolic dysfunction. Ventricular rate controlled with metoprolol and diltiazem. ORIF left ankle fracture performed by Dr. Carpenter on 01/14/20. Received IV heparin preop and SQ enoxaparin + warfarin postop. Did well postoperatively. O2 sats were in 90's on room air by day of discharge. Transferred to [facility] yesterday 01/19/20. Patient felt well last evening. This morning she developed chest pressure, diaphoresis, and SOB around 0530. Chest pressure was left parasternal. Mild cough. No pleuritic chest pain. She was brought to the ED where she was noted to be in rapid AF. Chest x-ray demonstrated CHF. Received IV furosemide with brisk diuresis and improvement of her symptoms. Admission Exam Per Admitting Provider Constitutional: WD/WN, vitals as above no acute distress Eyes: PERRL, conjunctivae normal, anicteric sclerae ENMT: external ear and nose normal, oropharynx normal Mouth: + edentulous (upper dentures) Neck: trachea midline, no thyromegaly Respiratory: + tachypneic Auscultation: + rales Cardiovascular: Rate/Rhythm: + irregularly irregular Heart Sounds: + murmur (II/ sys murmur at base); no gallop (none appreciated, exam limited) and no cardiac rub Vessels: + JVD Extremities: normal capillary refill; no calf tenderness and no edema Gastrointestinal (Abdomen): normal bowel sounds, soft, nontender, no hepatosplenomegaly Musculoskeletal: Head/Neck/Chest: neck supple Extremities: strength 5/5 throughout; no cyanosis and no clubbing left ankle cast or splint immobilizer right lower extremity Skin: no rashes, warm and dry Neurologic: PERRL, EOMI no facial palsy no dysarthria or aphasia Psychiatric: Orientation: alert and oriented x 3 Lymphatic: no cervical lymphadenopathy Principal Diagnosis Acute diastolic exacerbation of congestive heart failure-compensated Nocturnal hypoxia UTI due to Klebsiella species Coronary artery disease Chronic atrial fibrillation Left ankle fracture status post ORIF on 01/13 Periprosthetic fracture around right prosthetic knee. Discharge Exam CONSTITUTIONAL: WNWD, vitals as above, generally well-appearing EYES: normal conjunctivae, no scleral icterus ENT: external ear and nose normal, MMM NECK: trachea midline RESPIRATORY: clear to auscultation bilaterally, no crackles, rales or wheezes, normal respiratory effort CARDIOVASCULAR: irregular rate and irreg rhythm, S1 and 2 heard without murmurs, gallops or rubs, no JVD, no peripheral edema GASTROINTESTINAL: soft, nontender, nondistended, no guarding MUSCULOSKELETAL: strength 5/5 throughout, head is normocephalic and atraumatic SKIN: warm and dry NEUROLOGIC: No facial palsy, no dysarthria. CN 2-12 grossly intact, no sensory deficit, normal cognition, normal speech, no gross focal deficits. PSYCHIATRIC: alert cooperative and oriented Discharge Data Allergies Allergy/AdvReac Type Severity Reaction Status Date / Time esomeprazole Allergy Severe Difficulty Verified 01/20/20 08:05 Breathing alendronate sodium Allergy Intermediate hives Verified 01/20/20 08:05 Consultations 01/20/20 09:07 ED Decision to Admit Stat 01/20/20 14:06 Consult Cardiology Routine Hospital Course (1) Acute exacerbation of congestive heart failure: (2) UTI due to Klebsiella species: (3) Hypoxia, sleep related: (4) Coronary artery disease: (5) Atrial fibrillation: (6) Ankle fracture, bimalleolar, closed: (7) Brittany-prosthetic fracture around prosthetic knee: (8) Diabetes mellitus type 2, uncontrolled: 70-year-old female admitted to the hospitalist service for treatment of congestive heart failure. She was started on intravenous furosemide and cardiology was consulted consulted. She did have chest pressure and a history of coronary artery disease therefore serial troponin enzymes were drawn and negative. EKG revealed atrial fibrillation with nonspecific changes. Metoprolol and nitrates were continued per home regimen and aspirin was added. Diltiazem was held and anticoagulation with warfarin was continued. On hospital day 2 she diuresed well and was considered compensated from her acute diastolic congestive heart failure. Cardiology switched her to oral Lasix 40 mg daily. This replaced her hydrochlorothiazide for blood pressure control. Work-up revealed evidence of a UTI due to Klebsiella and she was given 5 days of Keflex. Initial Cisneros catheter that was placed was removed when this was noted. Nursing also noted the patient became more hypoxic in the high 80s while sleeping. Therefore an overnight pulse oximetry was performed and revealed a need for nocturnal oxygen which was prescribed 2 L/min overnight while sleeping. Her pain remained stable from her surgical site and right knee fracture site and was well managed with oral medications. At time of discharge she was hemodynamically stable and afebrile and tolerating p.o. She was nonweightbearing on bilateral extremities which was per orthopedic recommendations postoperatively. She was sent back to have [facility] in stable condition. Close primary care follow-up was recommended within 1 week of discharge. Total Time Total Time Spent Total Time Spent (In Minutes): 60 Total Time Includes: Examination of the Patient, Discharge Planning, Medication Reconciliation and Communication With Other Providers Discharge Plan Discharge Items Patient Disposition: Transfer Inpatient Rehab Fac Reason For Visit: CHF/CHEST PAIN Discharge Diagnosis: Acute diastolic exacerbation of congestive heart failure-compensated Nocturnal hypoxia UTI due to Klebsiella species Coronary artery disease Chronic atrial fibrillation Left ankle fracture status post ORIF on 01/13 Periprosthetic fracture around right prosthetic knee. Condition on Discharge: Good Activity: As commented below Activity Comment: per rehab staff Non-emergency contact: Primary Care Provider Call non-emergency contact if: you have any medication questions, your symptoms worsen, your pain is not controlled, your pain is worsening, your pain is unusual for you, your pain is concerning for you and you have a fever Follow-up/Referrals: [facility] [Primary Care Provider] - 01/29/20 10:40 am (01/29/2020 10:40 AM Provider [facility] ) Diet: Carb Consistent or DM2 and Heart Healthy Addtl Attending Provider Instructions: Please take all medications as instructed on discharge list below. Please note your hydrochlorothiazide has been replaced with Lasix. A follow-up with your primary care doctor within 1 week is recommended to ensure your electrolytes are stable and your blood pressure is at goal. Please note baby aspirin has been added to your regimen for chronic management of coronary artery disease. You were found to have a urinary tract infection and was placed on cephalexin to be taken for a total of 5 days with the last dose to be given on 01/26. While admitted you underwent an overnight pulse oximetry study and were found to need nocturnal oxygen. Please ensure you have 2 L/min via nasal cannula running continuously while you sleep. Please continue to follow all orthopedic postoperative instructions. It was a pleasure taking care of you! Please call if you have any questions or problems. You can reach a [facility] hospitalist on duty at [facility] 24 hours a day by calling [phone]. Take care of yourself. Brandi Allen, DO [facility] Pending Studies at Discharge: No Stand-Alone Forms: My [facility] Skilled Items Patient informed of condition?: Yes DNR: No Discharge Level of Care: Acute rehab Communicable Disease: No Discharge Prognosis: Stable Lines: None Urinary Catheter: No Medications and DC Order Prescriptions: New cephalexin 500 mg Capsule 500 mg PO Q12H Qty: 8 RF: 0 metoprolol succinate 50 mg Tablet Extended Release 24 Hr 50 mg PO BID Qty: 60 RF: 1 aspirin 81 mg Tablet,Delayed Release (Dr/Ec) 81 mg PO QAM Qty: 90 RF: 1 furosemide 40 mg Tablet 40 mg PO QAM Qty: 30 RF: 1 Continued Humulin R Regular U-100 Insuln 100 unit/mL Solution 1 sliding scale dose SUBCUT USEASDIRECTD RF: 0 enoxaparin [Lovenox] 30 mg/0.3 mL Syringe 30 mg SUBCUT Q12H RF: 0 Lantus Solostar U-100 Insulin 100 unit/mL (3 mL) insulin pen 100 units SQ QAM RF: 0 pregabalin 150 mg capsule 150 mg PO BID RF: 0 letrozole 2.5 mg tablet 2.5 mg PO QAM RF: 0 pravastatin 20 mg tablet 20 mg PO HS RF: 0 digoxin 125 mcg (0.125 mg) tablet 125 mcg PO DAILY RF: 0 fluticasone propionate [Flonase Allergy Relief] 50 mcg/actuation [place],Suspension 2 spray INTRANASAL DAILY RF: 0 isosorbide mononitrate 30 mg tablet extended release 24 hr 30 mg PO QAM RF: 0 metformin 1,000 mg tablet 1,000 mg PO BIDM RF: 0 Ozempic 1 mg/dose (2 mg/1.5 mL) Pen Injector 1 mg SUBCUT WK RF: 0 trazodone 50 mg Tablet 50 mg PO HS RF: 0 warfarin 5 mg tablet 5 mg PO QPM RF: 0 nitroglycerin [Nitrostat] 0.3 mg Tablet, Sublingual 0.3 mg sublingual .PRN/UD PRN (Reason: Chest Pain) RF: 0 albuterol sulfate [Ventolin HFA] 90 mcg/actuation Hfa Aerosol Inhaler 2 puff INHALATION QID PRN (Reason: Shortness Of Breath Or Wheezing) RF: 0 sennosides 8.6 mg Tablet 8.6 mg PO DAILY PRN (Reason: Constipation) RF: 0 lisinopril 5 mg Tablet 5 mg PO DAILY RF: 0 sertraline 50 mg Tablet 50 mg PO DAILY RF: 0 acetaminophen [Tylenol Extra Strength] 500 mg Tablet 1,000 mg PO Q8H PRN (Reason: Pain) RF: 0 multivitamin [Daily-Moiz] Tablet 1 tab PO QAM Qty: 30 RF: 0 sennosides [Senokot] 8.6 mg Tablet 17.2 mg PO HS Qty: 30 RF: 0 tramadol 50 mg Tablet 50 mg PO Q6H PRN (Reason: pain) Qty: 10 RF: 0 magnesium hydroxide [Milk of Magnesia] 400 mg/5 mL Suspension 30 ml PO DAILY PRN (Reason: constipation) Qty: 30 RF: 0 bisacodyl 10 mg Suppository 10 mg WA DAILY PRN (Reason: constipation) Qty: 10 RF: 0 docusate sodium 100 mg Capsule 100 mg PO BID Qty: 60 RF: 0 oxycodone 5 mg Tablet 5 mg PO Q4H PRN (Reason: pain, severe) Qty: 10 RF: 0 cholecalciferol (vitamin D3) 25 mcg (1,000 unit) Capsule 1,000 unit PO QAM Qty: 30 RF: 0 insulin aspart U-100 [Novolog Flexpen U-100 Insulin] 100 unit/mL (3 mL) insulin pen See Rx Instructions .ROUTE .COMPLEX Qty: 3 RF: 0 calcium carbonate [Calcium 500] 500 mg calcium (1,250 mg) tablet 500 mg PO BID Qty: 60 RF: 0 Discontinued hydrochlorothiazide 25 mg tablet 25 mg PO DAILY RF: 0 metoprolol succinate 50 mg tablet extended release 24 hr 50 mg PO QAM RF: 0 metoprolol succinate 25 mg tablet extended release 24 hr 25 mg PO QAM RF: 0 diltiazem HCl 180 mg Capsule,Extended Release 24hr 180 mg PO QAM Qty: 30 RF: 0 Discharge Orders: Discharge Order (Routine); Ordered 01/23/20 Ordered By: Brandi Allen Admission Data Admit Date/Time: 01/20/20 11:08 Attending Provider: Brandi Allen Admit Provider: Mack Godinez [facility] Other Providers: Mack Godinez ; Marcial Singh ; Octaviano,[facility] Other Interventions: Discharge Summary Assessment (RN) Last Done: 01/23/20 14:04 DC Date/Time DO NOT enter until pt leaves facility: 01/23/20 14:32
== END 2020-01-23 14:32 | DRG 292 ==
LOC: ED 07:17 → 1E 11:08 → SUATTDRO 11:08 → 1E 12:59

== ENCOUNTER 2023-11-14 23:14 | Inpatient (IN) ==
[2023-11-14] MEDS: NITROGLYCERIN/D5W 100MCG/ML 250 ML IV SCH (23:15)
--- NOTE | 2023-11-14 23:22 | Emergency Department Note ---
Impression & Plan Hypertensive emergency, Flash pulmonary edema, Atrial fibrillation, COVID ED Provider Note NAME: LOUIS MOBLEY AGE: 73 SEX: F : 1950 ARRIVES VIA: Ambulance INFORMANT: Patient, ED PROVIDER(S): Radu Mobley MD CHIEF COMPLAINT: SOB, respiratory distress MEDICAL DECISION MAKING: IV established and blood work obtained. 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 COntinued nitro gtt and CPAP to BIPAP. Patient w/ BP improving. Normal WBC and hgb 1..9. Platelet nromal INR of 2.3 VBG w/ mild low pH 7.33 and pCO2 57 trop 126 and bnp 160. CXR w/ cardiomegaly and pulm edema. Given high BP likely HTN emergency and flash pulm edema. Biofire positive for COvid. Ordered 6 mg dex. Patient reassessed several times. Much improved and feeling well and stable w/ current management. Ordered Lasix 40 mg IV. Spoke w/ Dr. Cain and patient admitted to medicine service. Critical Care: I have personally spent 75 minutes of critical care time in direct management of this patient. This includes bedside care, interpretation of diagnostic studies, and testing, discussion with consultants, patient, and family members, and other require inpatient management activities. This 75 minutes is in excess of all separately billable procedures. Discussion w/ other healthcare providers: Dr. Cain inpatient medicine. Prior /Outside records reviewed: I reviewed a discharge summary from January 23, [address] Allen. Patient does have a known history of ischemic heart disease diastolic CHF chronic A-fib patient was admitted at this time due to concern for left ankle fracture and periprosthetic fracture of right femoral metadiaphysis I reviewed a discharge summary from Dr. Mccartney cardiology resident. Patient had a history of A-fib with RVR hypotension type 2 diabetes. Patient reportedly went on underwent JORGE with cardioversion digoxin was stopped. Patient reportedly presented for cardiac cath for A-fib with hypotension patient underwent cardiac cath with colicky chest pain underwent cardiac cath which revealed chronic total occlusion of the proximal RCA 30 to 40% stenosis of proximal left circumflex. Patient reportedly postprocedure went to A-fib with rates in the 120s 130s blood pressure 84/55. Patient did receive phenylephrine. Differential diagnosis: Reactive airway disease, pneumonia, pneumothorax, COPD, CHF, infections, cardiac ischemia, pulmonary embolism, musculoskeletal, gastrointestinal, as well as other pathologies. Diagnostics, as interpreted by me: ECG: Normal sinus rhythm, rate of 57, normal axis no ST elevations T wave version lead III. Cardiac monitoring: An order was placed for continuous cardiac monitoring. The monitor shows a rate of 88 with sinus rhythm. Patient was placed on pulse oximetry Medical decision rules: none Imaging studies: I informally interpreted the patient's CXR w/ cardiomegaly and pulmonary edema. with formal report to follow. 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 EMS arrived and noted patient w/ severe distress diaphoresis BP 190s/110s. Patient placed on CPAP and nitro gtt initiated. Recently d/c'ed from [facility] yesterday and cardiac cath. Had some sort of occlusion but required on medical management w/o stenting. Patient denies CP. She states she took her morning and evening meds. Denies using diuretics. No cough. PAST MEDICAL HISTORY: See Below PAST SURGICAL HISTORY: See Below SOCIAL HISTORY: See Below HOME MEDICATIONS: See Below ALLERGIES: See Below VITALS: See Below PHYSICAL EXAMINATION: GENERAL: Mild distress, CPAP in place. EYE EXAM: Normal conjunctiva. PERRL, no anisocoria and EOM's grossly intact w/o pain. OROPHARYNX: Moist mucus membranes, grossly normal dentition. NECK: Trachea midline, no stridor. LUNGS: Bibasilar crackles. Normal chest wall mechanics. HEART: NSR, no MRG. ABDOMEN: Abdomen soft, non-tender, no masses, no rebound or guarding. BACK: No CVA TTP. SKIN: No rashes and no bruising. UPPER EXTREMITIES: Upper extremities are grossly normal. LOWER EXTREMITIES: Grossly normal, trace pretibial edema. NEURO EXAM: A&O x3, cranial nerves II-XII grossly intact, normal speech, moves all 4 extremities. 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) "Abnormal left breast mammogram 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 Estrogen receptor positive and progesterone receptor positive Status post lumpectomy with sentinel lymph node biopsy stage [id number] 04/07/2015 Status post completion of radiation therapy 07/21/2015 received 6640 cGy" On 07/25/15 17:54 Jayleen Bates wrote "Abnormal left breast mammogram 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 Estrogen receptor positive and progesterone receptor positive Status post lumpectomy with sentinel lymph node biopsy stage [id number] 04/07/2015 Status post completion of radiation therapy 07/21/2015 received 6640 cGy" On 07/25/15 17:49 Jayleen Bates wrote "Abnormal left breast mammogram 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 Estrogen receptor positive and progesterone receptor positive Status post lumpectomy with sentinel lymph node biopsy stage [id number] 04/07/2015" Surgical History H/O partial mastectomy "left breast 04/2015 with lymph node biopsy" H/O arthroscopic knee surgery H/O colonoscopy History of carpal tunnel surgery S/P cervical spinal fusion S/P dilation and curettage H/O vein stripping Family History Other Breast cancer Diabetes Heart disease Social History Smoking Status: Former smoker Tobacco Type: Cigarettes Second Hand Exposure: No; Do You Dip or Chew Tobacco: No; Hx Alcohol Use: No Hx Substance Use: No Preferred Language: Tajik Communication Ability: Effective 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 Beliefs That Will Affect Care: None Current Living Situation: Spouse Feels Safe at Home: Yes Safety Concerns: Feels Safe At This Time Assistive Devices: Cane, Walker and Wheelchair Allergies Allergies Allergy/AdvReac Type Severity Reaction Status Date / Time alendronate sodium Allergy Severe DIFFICULTY Verified 09/21/22 22:31 BREATHING/BURNING SENSATION esomeprazole Allergy Intermediate Hives Verified 09/21/22 22:31 Home Meds Home Medications Medication Instructions Recorded Confirmed albuterol sulfate 90 mcg/actuation 2 puff inhalation QID PRN 01/12/20 11/15/23 aerosol inhaler (Ventolin HFA) Shortness Of Breath Or Wheezing fluticasone propionate 50 2 spray intranasal QAM 01/12/20 11/15/23 mcg/actuation nasal spray,suspension (Flonase Allergy Relief) metformin 1,000 mg tablet 1,000 mg PO BIDM 01/12/20 11/15/23 nitroglycerin 0.3 mg sublingual 0.3 mg sublingual .PRN/UD PRN 01/12/20 11/15/23 tablet (Nitrostat) Chest Pain pregabalin 150 mg capsule 150 mg PO BID 01/12/20 11/15/23 sertraline 50 mg tablet 75 mg PO HS 01/12/20 11/15/23 trazodone 50 mg tablet 50 mg PO HS 01/12/20 11/15/23 warfarin 5 mg tablet 7.5 mg PO QPM 01/12/20 11/15/23 cyanocobalamin (vitamin B-12) 1,000 mcg sublingual DAILY 09/21/22 11/15/23 1,000 mcg sublingual tablet aspirin 81 mg tablet,delayed 81 mg PO QAM 11/15/23 11/15/23 release insulin aspart U-100 100 unit/mL 0 sliding scale dose continuous 11/15/23 11/15/23 subcutaneous solution (Novolog subcutaneous infusion .WAITING ON U-100 Insulin aspart) NEW PUMP insulin glargine U-300 conc 300 60 unit subcut AMPM 11/15/23 11/15/23 unit/mL (1.5 mL) subcutaneous pen (Saima SoloStsegundo U-300 Insulin) isosorbide mononitrate 60 mg 60 mg PO QAM 11/15/23 11/15/23 tablet,extended release 24 hr rosuvastatin 20 mg tablet 20 mg PO QAM 11/15/23 11/15/23 Previous Rx's Medication Instructions Recorded cholecalciferol (vitamin D3) 25 1,000 unit PO QAM #30 caps 01/19/20 mcg (1,000 unit) capsule multivitamin (Daily-Moiz tablet) 1 tab PO QAM #30 tabs 01/19/20 metoprolol succinate 50 mg 50 mg PO BID #60 tabs 01/23/20 tablet,extended release 24 hr Results & Data (ED) Vital Signs Vital Signs - 24 hr 11/14/23 23:19 11/14/23 23:19 11/14/23 23:20 Temperature 36.8 C Temperature Source Oral Pulse Rate 99 H 98 H Respiratory Rate 28 H Respiratory Effort / Characteristics Respiratory Depth Respiratory Pattern Tachypnea Tachypnea Blood Pressure 149/89 H Blood Pressure Mean 109 Pulse Oximetry 99 Oxygen Delivery Method CPAP Fraction of Inspired Oxygen 30 SaO2/FiO2 Ratio 330 Sepsis Recent Fever Within 48 Hours No Sepsis New/Unexplained Change in Mental Status N/A Sepsis Action Taken by Nursing No Action Required 11/14/23 23:22 11/14/23 23:33 11/14/23 23:35 Temperature Temperature Source Pulse Rate 91 H 88 Respiratory Rate 24 22 Respiratory Effort / Characteristics Respiratory Depth Respiratory Pattern Blood Pressure 127/74 131/65 Blood Pressure Mean 91 87 Pulse Oximetry 99 98 99 Oxygen Delivery Method CPAP BiPAP BiPAP Fraction of Inspired Oxygen 30 30 30 SaO2/FiO2 Ratio 330 Sepsis Recent Fever Within 48 Hours Sepsis New/Unexplained Change in Mental Status Sepsis Action Taken by Nursing 11/14/23 23:40 11/14/23 23:45 11/14/23 23:50 Temperature Temperature Source Pulse Rate 88 89 84 Respiratory Rate 22 22 22 Respiratory Effort / Characteristics Respiratory Depth Respiratory Pattern Blood Pressure 129/76 137/87 131/77 Blood Pressure Mean 93 103 95 Pulse Oximetry 98 98 98 Oxygen Delivery Method BiPAP BiPAP BiPAP Fraction of Inspired Oxygen 30 30 30 SaO2/FiO2 Ratio Sepsis Recent Fever Within 48 Hours Sepsis New/Unexplained Change in Mental Status Sepsis Action Taken by Nursing 11/15/23 00:00 11/15/23 00:05 11/15/23 00:10 Temperature Temperature Source Pulse Rate 82 82 82 Respiratory Rate 23 23 20 Respiratory Effort / Characteristics Respiratory Depth Respiratory Pattern Blood Pressure 123/76 120/68 121/67 Blood Pressure Mean 91 85 85 Pulse Oximetry 99 99 98 Oxygen Delivery Method BiPAP BiPAP BiPAP Fraction of Inspired Oxygen 30 30 30 SaO2/FiO2 Ratio Sepsis Recent Fever Within 48 Hours Sepsis New/Unexplained Change in Mental Status Sepsis Action Taken by Nursing 11/15/23 00:15 11/15/23 00:20 11/15/23 00:25 Temperature 36.4 C L Temperature Source Oral Pulse Rate 81 79 Respiratory Rate 20 20 Respiratory Effort / Characteristics Respiratory Depth Respiratory Pattern Blood Pressure 125/69 126/73 Blood Pressure Mean 87 90 Pulse Oximetry 98 98 Oxygen Delivery Method BiPAP BiPAP Fraction of Inspired Oxygen 30 30 SaO2/FiO2 Ratio Sepsis Recent Fever Within 48 Hours Sepsis New/Unexplained Change in Mental Status Sepsis Action Taken by Nursing 11/15/23 00:25 11/15/23 00:27 11/15/23 00:30 Temperature Temperature Source Pulse Rate 82 99 H 79 Respiratory Rate 21 34 H 23 Respiratory Effort / Characteristics Spontaneous Short of Breath Respiratory Depth Normal Respiratory Pattern Tachypnea Blood Pressure 133/76 135/70 Blood Pressure Mean 95 91 Pulse Oximetry 99 99 98 Oxygen Delivery Method BiPAP BiPAP Fraction of Inspired Oxygen 30 30 30 SaO2/FiO2 Ratio Sepsis Recent Fever Within 48 Hours Sepsis New/Unexplained Change in Mental Status Sepsis Action Taken by Nursing 11/15/23 00:35 11/15/23 00:40 11/15/23 00:45 Temperature Temperature Source Pulse Rate 80 81 80 Respiratory Rate 20 23 21 Respiratory Effort / Characteristics Respiratory Depth Respiratory Pattern Blood Pressure 126/66 121/74 129/75 Blood Pressure Mean 86 89 93 Pulse Oximetry 98 98 98 Oxygen Delivery Method BiPAP BiPAP BiPAP Fraction of Inspired Oxygen 30 30 30 SaO2/FiO2 Ratio Sepsis Recent Fever Within 48 Hours Sepsis New/Unexplained Change in Mental Status Sepsis Action Taken by Nursing 11/15/23 00:50 11/15/23 00:55 11/15/23 01:00 Temperature Temperature Source Pulse Rate 79 78 76 Respiratory Rate 22 18 21 Respiratory Effort / Characteristics Respiratory Depth Respiratory Pattern Blood Pressure 130/73 127/71 116/68 Blood Pressure Mean 92 89 84 Pulse Oximetry 98 97 99 Oxygen Delivery Method BiPAP BiPAP BiPAP Fraction of Inspired Oxygen 30 30 30 SaO2/FiO2 Ratio Sepsis Recent Fever Within 48 Hours Sepsis New/Unexplained Change in Mental Status Sepsis Action Taken by Nursing 11/15/23 01:05 11/15/23 01:10 11/15/23 01:15 Temperature Temperature Source Pulse Rate 78 79 78 Respiratory Rate 22 22 19 Respiratory Effort / Characteristics Respiratory Depth Respiratory Pattern Blood Pressure 118/67 105/60 111/67 Blood Pressure Mean 84 75 81 Pulse Oximetry 98 99 97 Oxygen Delivery Method BiPAP BiPAP BiPAP Fraction of Inspired Oxygen 30 30 30 SaO2/FiO2 Ratio Sepsis Recent Fever Within 48 Hours Sepsis New/Unexplained Change in Mental Status Sepsis Action Taken by Nursing 11/15/23 01:20 11/15/23 01:25 11/15/23 01:30 Temperature Temperature Source Pulse Rate 80 78 79 Respiratory Rate 20 22 18 Respiratory Effort / Characteristics Respiratory Depth Respiratory Pattern Blood Pressure 116/87 116/68 115/61 Blood Pressure Mean 96 84 79 Pulse Oximetry 97 97 98 Oxygen Delivery Method BiPAP BiPAP BiPAP Fraction of Inspired Oxygen 30 30 30 SaO2/FiO2 Ratio Sepsis Recent Fever Within 48 Hours Sepsis New/Unexplained Change in Mental Status Sepsis Action Taken by Nursing 11/15/23 01:35 11/15/23 01:40 11/15/23 01:45 Temperature Temperature Source Pulse Rate 77 77 78 Respiratory Rate 24 20 19 Respiratory Effort / Characteristics Respiratory Depth Respiratory Pattern Blood Pressure 113/63 114/62 116/62 Blood Pressure Mean 79 79 80 Pulse Oximetry 98 97 97 Oxygen Delivery Method BiPAP BiPAP BiPAP Fraction of Inspired Oxygen 30 SaO2/FiO2 Ratio Sepsis Recent Fever Within 48 Hours Sepsis New/Unexplained Change in Mental Status Sepsis Action Taken by Nursing 11/15/23 01:50 11/15/23 01:55 11/15/23 02:00 Temperature Temperature Source Pulse Rate 79 79 79 Respiratory Rate 18 21 20 Respiratory Effort / Characteristics Respiratory Depth Respiratory Pattern Blood Pressure 114/79 116/68 134/76 Blood Pressure Mean 90 84 95 Pulse Oximetry 99 100 99 Oxygen Delivery Method BiPAP BiPAP BiPAP Fraction of Inspired Oxygen 30 30 30 SaO2/FiO2 Ratio Sepsis Recent Fever Within 48 Hours Sepsis New/Unexplained Change in Mental Status Sepsis Action Taken by Nursing 11/15/23 02:05 Temperature Temperature Source Pulse Rate 79 Respiratory Rate 20 Respiratory Effort / Characteristics Respiratory Depth Respiratory Pattern Blood Pressure 118/72 Blood Pressure Mean 87 Pulse Oximetry 99 Oxygen Delivery Method BiPAP Fraction of Inspired Oxygen 30 SaO2/FiO2 Ratio Sepsis Recent Fever Within 48 Hours Sepsis New/Unexplained Change in Mental Status Sepsis Action Taken by [facility] Medications Current Medication List: was personally reviewed by me Laboratory Data Attestation: I reviewed the patient's lab results. 11/15/23 05:45 11/15/23 12:52 Lab Results 11/14/23 11/14/23 11/15/23 Range/Units 23:30 23:50 01:34 WBC 8.23 (4.8-10.8) K/ul RBC 3.99 L (4.20-5.40) M/uL Hgb 11.9 L (12.0-16.0) g/dl Hct 36.5 L (37.0-47.0) % MCV 91.5 (80.0-100.0) fL MCH 29.8 (25.0-34.0) pg MCHC 32.6 (32.0-36.0) g/dL RDW Std Deviation 54.6 H (36.4-46.3) fL RDW Coeff of Katrin 16.1 H (11.5-14.5) % Plt Count 154 (130-400) K/uL MPV 12.0 (9.4-12.4) fL Immature Gran % (Auto) 0.2 % Neut % (Auto) 77.9 % Lymph % (Auto) 14.5 % Nance % (Auto) 5.2 % Eos % (Auto) 1.6 % Baso % (Auto) 0.6 % Neut # (Auto) 6.41 (1.40-6.50) K/uL Lymph # (Auto) 1.19 L (1.20-3.40) K/uL Nance # (Auto) 0.43 (0.11-0.59) K/uL Eos # (Auto) 0.13 (0.00-0.50) K/uL Baso # (Auto) 0.05 (0.00-0.20) K/uL Immature Gran # (Auto) 0.02 (0.01-0.20) K/uL PT 23.7 H (9.0-12.0) Seconds INR 2.3 H (0.9-1.1) APTT 41 H (21-31) Seconds PTT Ratio 1.5 VBG pH 7.33 L (7.36-7.41) VBG pCO2 57 H (38-50) mmHg VBG pO2 43 mmHg VBG HCO3 30 mmol/L VBG O2 Saturation 67.9 % VBG Base Excess 2.8 mEq/L Sodium 137 (136-145) mmol/L Potassium 4.2 (3.5-5.1) mmol/L Chloride 103 (98-107) mmol/L Carbon Dioxide 28 (21-32) mmol/L Anion Gap 6 (3-11) BUN 18 (6-23) mg/dl Creatinine 0.88 (0.6-1.2) mg/dl Est Cr Clr Drug Dosing 62.9 ml/min Est GFR ( Amer) 75.0 ml/min Est GFR (Non-Af Amer) 64.7 ml/min BUN/Creatinine Ratio 20.5 H (10-20) Glucose 261 H (70-99(Fasting)) mg/dl Calcium 9.1 (8.6-10.3) mg/dl Phosphorus 2.8 (2.5-4.9) mg/dl Magnesium 1.7 (1.7-2.4) mg/dl Total Bilirubin 0.5 (0.2-1.0) mg/dl AST 40 H (13-39) U/L ALT 19 (7-52) U/L Alkaline Phosphatase 87 (34-104) U/L Troponin I High Sens 126.1 H* 170.8 H* D (0-14) pg/ml B-Natriuretic Peptide 160 H (0-100) pg/ml Total Protein 7.3 (6.0-8.3) gm/dl Albumin 3.6 (3.4-5.0) gm/dl Globulin 3.7 (2.5-4.0) gm/dl Albumin/Globulin Ratio 1.0 (0.9-2) Adenovirus (PCR) Not Detected (NotDetected) B. pertussis DNA (PCR) Not Detected (NotDetected) B.parapertussis DNA PCR Not Detected (NotDetected) C. pneumoniae DNA (PCR) Not Detected (NotDetected) Coronavirus OC43 (PCR) Not Detected (NotDetected) Coronavirus HKU1 (PCR) Not Detected (NotDetected) Coronavirus 229E (PCR) Not Detected (NotDetected) SARS-CoV-2 (PCR) DETECTED A (NotDetected) Coronavirus NL63 (PCR) Not Detected (NotDetected) Human Metapneumovir PCR Not Detected (NotDetected) Influenza Type A (PCR) Not Detected (NotDetected) Influenza Type B (PCR) Not Detected (NotDetected) M. pneumoniae (PCR) Not Detected (NotDetected) Parainfluenza 1 (PCR) Not Detected (NotDetected) Parainfluenza 2 (PCR) Not Detected (NotDetected) Parainfluenza 3 (PCR) Not Detected (NotDetected) Parainfluenza 4 (PCR) Not Detected (NotDetected) RSV (PCR) Not Detected (NotDetected) Entero/Rhino (PCR) Not Detected (NotDetected) Administered Medications Aspirin (Aspirin 81 Mg Ectab) 81 mg PO [facility] Stop: 12/15/23 08:59 Last Admin: 11/15/23 08:06 Dose: 81 mg Documented By: Cyanocobalamin (Cyanocobalamin (B-12) 500 Mcg Tablet) 1,000 mcg PO DAILY [facility] Stop: 12/15/23 08:59 Last Admin: 11/15/23 08:08 Dose: 1,000 mcg Documented By: Fluticasone Propionate (Fluticasone Propionate Na Spr 16 Gm Btl) 2 sprays NA [facility] Stop: 12/15/23 08:59 Last Admin: 11/15/23 08:40 Dose: 2 sprays Documented By: Insulin Human Regular 250 (units/ Sodium Chloride) 250 mls @ 3.1 mls/hr IV .Q24H [facility]; Protocol Stop: 12/15/23 16:29 Last Admin: 11/15/23 17:38 Dose: 3.1 units/hr, 3.1 mls/hr Documented By: Co-signed By: BT Insulin Aspart (Insulin Aspart Per Unit Charge) 0 units SC ACHS [facility] Stop: 12/15/23 16:29 Last Admin: 11/15/23 17:54 Dose: 24 units Documented By: Co-signed By: CF Isosorbide Mononitrate (Isosorbide Nance Extended Rel 60 Mg Tabcr) 60 mg PO [facility] Stop: 12/15/23 08:59 Last Admin: 11/15/23 08:08 Dose: 60 mg Documented By: Metoprolol Succinate (Metoprolol Succ 50mg Ext Rel Tab) 50 mg PO BID [facility] Stop: 12/15/23 08:59 Last Admin: 11/15/23 08:08 Dose: 50 mg Documented By: Multivitamins (Multivitamin Tab) 1 tab PO [facility] Stop: 12/15/23 08:59 Last Admin: 11/15/23 08:07 Dose: 1 tab Documented By: Pregabalin (Pregabalin 150 Mg Cap) 150 mg PO BID [facility] Stop: 12/15/23 08:59 Last Admin: 11/15/23 08:36 Dose: 150 mg Documented By: Rosuvastatin Calcium (Rosuvastatin Calcium 20 Mg Tab) 20 mg PO QAM [facility] Stop: 12/15/23 08:59 Last Admin: 11/15/23 08:09 Dose: 20 mg Documented By: Sodium Zirconium Cyclosilicate (Sodium Zirconium Cyclosilicate 10 Gm Packet) 10 gm PO TID@0700,1200,1900 [facility] Stop: 11/16/23 19:01 Last Admin: 11/15/23 18:25 Dose: 10 gm Documented By: Admin: 11/15/23 12:37 Dose: 10 gm Documented By: Admin: 11/15/23 08:37 Dose: 10 gm Documented By: Vitamin D (Cholecalciferol 25 Mcg (1000 Units) Tab) 25 mcg PO QAM [facility] Stop: 12/15/23 08:59 Last Admin: 11/15/23 08:07 Dose: 25 mcg Documented By: Warfarin Sodium (Warfarin Sod 7.5 Mg Tab) 7.5 mg PO DAILY@1600 [facility] Stop: 12/15/23 15:59 Last Admin: 11/15/23 17:20 Dose: 7.5 mg Documented By: Discontinued Medications Dexamethasone Sodium Phosphate (DexamethasonePf 10 Mg/Ml Vial) 6 mg IV NOW ONE Stop: 11/15/23 01:07 Last Admin: 11/15/23 01:26 Dose: 6 mg Documented By: MAGDIEL Furosemide (Furosemide 40 Mg/4 Ml Vial) 40 mg IV ONE ONE Stop: 11/15/23 00:47 Last Admin: 11/15/23 00:58 Dose: 40 mg Documented By: MAGDIEL Furosemide (Furosemide 40 Mg/4 Ml Vial) 60 mg IV ONE ONE Stop: 11/15/23 10:03 Last Admin: 11/15/23 10:32 Dose: 60 mg Documented By: Nitroglycerin/Dextrose (Nitroglycerin/D5w 100 Mcg/Ml) 250 mls @ 3 mls/hr IV .Q24H [facility]; Protocol Stop: 12/14/23 23:29 Last Titration: 11/15/23 02:56 Dose: Infused Documented By: Titration: 11/15/23 02:48 Dose: 0 mcg/min, 0 mls/hr Documented By: Admin: 11/14/23 23:15 Dose: 5 mcg/min, 3 mls/hr Documented By: MAGDIEL Co-signed By: MANDI Remdesivir 200 mg/ Sodium (Chloride) 250 mls @ 125 mls/hr IV NOW ONE; Protocol Stop: 11/15/23 06:59 Last Infusion: 11/15/23 07:22 Dose: Infused Documented By: Admin: 11/15/23 05:07 Dose: 125 mls/hr Documented By: NILS Insulin Human Regular 5 units/ (Syringe) 5 mls @ 30 mls/min IV ONE STA Stop: 11/15/23 06:38 Last Admin: 11/15/23 07:08 Dose: 30 mls/min Documented By: NILS Co-signed By: Calcium Gluconate 1,000 mg/ (Sodium Chloride) 60 mls @ 240 mls/hr IV NOW ONE Stop: 11/15/23 06:59 Last Infusion: 11/15/23 07:22 Dose: Infused Documented By: Admin: 11/15/23 07:08 Dose: 240 mls/hr Documented By: NILS Magnesium Sulfate/Dextrose (Magnesium Sulfate / D5w) 1 gm in 100 mls @ 50 mls/hr IV Q2H [facility] Stop: 11/15/23 11:44 Last Infusion: 11/15/23 11:13 Dose: Infused Documented By: Admin: 11/15/23 09:10 Dose: 50 mls/hr Documented By: Infusion: 11/15/23 09:10 Dose: Infused Documented By: Admin: 11/15/23 08:10 Dose: 50 mls/hr Documented By: Insulin Human Regular 10 units (/ Syringe) 10 mls @ 30 mls/min IV NOW ONE Stop: 11/15/23 12:01 Last Admin: 11/15/23 12:57 Dose: 30 mls/min Documented By: Co-signed By: BEVERLY Insulin Human Regular 3 units/ (Syringe) 3 mls @ 0 mls/min IV ONE ONE Stop: 11/15/23 16:31 Last Admin: 11/15/23 17:39 Dose: 3 mls/min Documented By: Co-signed By: BT Insulin Aspart (Insulin Aspart Per Unit Charge) 0 units SC ACHS [facility] Stop: 12/15/23 07:29 Last Admin: 11/15/23 12:30 Dose: 51 units Documented By: Co-signed By: CELINA Admin: 11/15/23 08:28 Dose: 23 units Documented By: Co-signed By: CELINA Insulin Glargine (Lantus Per Unit Charge) 40 units SC NOW ONE Stop: 11/15/23 08:01 Last Admin: 11/15/23 08:28 Dose: 40 units Documented By: Co-signed By: CELINA Insulin Glargine (Lantus Per Unit Charge) 40 units SC NOW ONE Stop: 11/15/23 12:01 Last Admin: 11/15/23 12:30 Dose: 40 units Documented By: Co-signed By: CELINA Insulin Glargine (Lantus Per Unit Charge) 60 units SC ONE ONE Stop: 11/15/23 16:46 Last Admin: 11/15/23 17:17 Dose: 60 units Documented By: Co-signed By: LUISITO Miscellaneous (Stat Iv Infusion Titration Per Protocol) 1 each N/A NOW STA Stop: 11/14/23 23:23 Last Admin: 11/14/23 23:34 Dose: Not Given Documented By: MAGDIEL Imaging Data Radiologist's Impression: Chest X-Ray 11/14/23 23:22 XR chest 1V portable CLINICAL HISTORY: Dyspnea TECHNIQUE: Single frontal radiograph of the chest was obtained. Comparison: Comparison is made to chest radiograph 01/20/2020 FINDINGS: Cervical fixation hardware is seen. Cardiomegaly is noted. The aortic arch is calcified. Lateral annular calcification is incidentally noted. There is prominence and cephalization of the vasculature with Chelsea B lines seen. No evidence of pleural effusion or pneumothorax. IMPRESSION: Cardiomegaly and moderate pulmonary edema. ACT 112: Negative or not required by law. Electronically signed by: Ghassan Lebron M.D. 11/15/2023 7:28 AM Discharge Plan Visit Data Chief Complaint: Respiratory Distress Stated Complaint: SEVERE RESP DISTRESS ED Provider: Radu Mobley Discharge Problem: Hypertensive emergency, Flash pulmonary edema, Atrial fibrillation, COVID Patient Disposition: Admitted As Inpatient Discharge Instructions Interventions: ED Discharge Assessment Last Done: 11/15/23 04:00 Discharge Problem: Atrial fibrillation Qualifiers: Atrial fibrillation type: unspecified Qualified Code(s): I48.91 - Unspecified atrial fibrillation
[2023-11-14] MEDS: STAT IV Infusion **Titration per Protocol STA (23:34)
[2023-11-15 00:05] LABS: Basophils # (auto) 0.05 K/uL (0.00-0.20); Basophils % (auto) 0.6 %; Eosinophils # (auto) 0.13 K/uL (0.00-0.50); Eosinophils % (auto) 1.6 %; Hematocrit (blood only) 36.5 % (37.0-47.0); Hemoglobin 11.9 g/dl (12.0-16.0); Immature Granulocytes # (auto) 0.02 K/uL (0.01-0.20); Immature Granulocytes % (auto) 0.2 %; Lymphocytes # (auto) 1.19 K/uL (1.20-3.40); Lymphocytes % (auto) 14.5 %; Mean Corpuscular Hemoglobin 29.8 pg (25.0-34.0); Mean Corpuscular Hgb Conc 32.6 g/dL (32.0-36.0); Mean Corpuscular Volume 91.5 fL (80.0-100.0); Monocytes # (auto) 0.43 K/uL (0.11-0.59); Monocytes % (auto) 5.2 %; Neutrophils # (auto) 6.41 K/uL (1.40-6.50); Neutrophils % (auto) 77.9 %; Platelet Count 154 K/uL (130-400); RDW Coefficient of Variation 16.1 % (11.5-14.5); RDW Standard Deviation 54.6 fL (36.4-46.3); Red Blood Count 3.99 M/uL (4.20-5.40); White Blood Count 8.23 K/ul (4.8-10.8)
[2023-11-15 00:14] LABS: Albumin Level 3.6 gm/dl (3.4-5.0); BUN Creatinine Ratio 20.5 (10-20); Bilirubin,Total 0.5 mg/dl (0.2-1.0); Calcium 9.1 mg/dl (8.6-10.3); Creatinine Clr Calc Pharmacy 62.9 ml/min; Est GFR (Non-African American) 64.7 ml/min; Globulin 3.7 gm/dl (2.5-4.0); Magnesium 1.7 mg/dl (1.7-2.4); Phosphorus 2.8 mg/dl (2.5-4.9); Potassium 4.2 mmol/L (3.5-5.1); Total Protein 7.3 gm/dl (6.0-8.3)
[2023-11-15 00:30] LABS: Troponin I High Sensitivity 126.1 pg/ml (0-14)
[2023-11-15 00:37] LABS: INR 2.3 (0.9-1.1); Partial Thromboplastin Ratio 1.5; Partial Thromboplastin Time 41 Seconds (21-31); Prothrombin Time 23.7 Seconds (9.0-12.0)
[2023-11-15 00:47] LABS: Adenovirus PCR Not Detected (NotDetected); Bordetella parapertussis PCR Not Detected (NotDetected); Bordetella pertussis PCR Not Detected (NotDetected); Chlamydia pneumoniae PCR Not Detected (NotDetected); Coronavirus 229E PCR Not Detected (NotDetected); Coronavirus CoV-2 (COVID19)PCR DETECTED (NotDetected); Coronavirus HKU1 PCR Not Detected (NotDetected); Coronavirus NL63 PCR Not Detected (NotDetected); Coronavirus OC43PCR Not Detected (NotDetected); Human Metapneumovirus PCR Not Detected (NotDetected); Influenza A PCR Not Detected (NotDetected); Influenza B PCR Not Detected (NotDetected); Mycoplasma pneumoniae PCR Not Detected (NotDetected); Parainfluenza Virus 1 PCR Not Detected (NotDetected); Parainfluenza Virus 2 PCR Not Detected (NotDetected); Parainfluenza Virus 3 PCR Not Detected (NotDetected); Parainfluenza Virus 4 PCR Not Detected (NotDetected); Respiratory Syncytial VirusPCR Not Detected (NotDetected); Rhinovirus/Enterovirus PCR Not Detected (NotDetected)
[2023-11-15] MEDS: FUROSEMIDE 40 MG/4 ML VIAL IV ONE ×2 (00:58→10:32)
[2023-11-15 01:08] LABS: Base Excess VBG 2.8 mEq/L; HCO3 VBG 30 mmol/L; Oxygen Saturation VBG 67.9 %; PCO2 VBG 57 mmHg (38-50); PO2 VBG 43 mmHg; pH VBG 7.33 (7.36-7.41)
[2023-11-15] MEDS: dexAMETHasone**PF** 10 MG/ML VIAL IV ONE (01:26)
--- NOTE | 2023-11-15 03:20 | History & Physical Report ---
Date of Service November 15, 2023 Assessment & Plan (1) Respiratory distress: Plan: 73-year-old female with past medical history significant for diabetes, peripheral vascular disease, hyperlipidemia, moderate COPD, chronic atrial fibrillation, history of CAD, B12 deficiency, GERD, osteoporosis, history of DVT, history of depression, history of breast cancer, presents with respiratory distress and elevated blood pressure. Patient was recently in [place] for c ardiac cath for colicky chest pain for the past year. Cardiac cath showed complete total occlusion in proximal RCA and 30-40 per stenosis of proximal left circumflex and thought her blockages could not be stented. After procedure patient went to rapid A-fib and blood pressure was 84/55 and continued to be hypotensive and was dizzy and lightheaded. Patient had a JORGE and cardioversion with successful results and was discharged home. Today at 9:30 PM patient felt very short of breath and EMS was called her blood pressure was 175 /110 she was started on nitro drip. Chest x-ray showed pulmonary edema and she was given dose of Lasix and was placed on BiPAP. Patient COVID test came back positive. Patient denies any fever. No chest pains. No runny nose. No sore throat. No cough. No decreased appetite. No body aches. Had headache but that resolved now , vision is okay. Constipated. Denies any blood in the stools.Normal micturition. She ambulates with a cane at home and for long distances she uses wheelchair. Currently talking in full sentences and seems comfortable. Respiratory distress Possible CHF Positive for COVID Received a d dose of IV Lasix On BiPAP Currently improved Telemetry Follow echo Continue BiPAP for now Consult cardiology in a.m. further recommendation COVID Patient has no other symptoms except for hypoxia Will follow repeat chest x-ray Empirically start Decadron and remdesivir with COVID labs COVID isolation and precautions CAD Recent cardiac cath showed total occlusion of proximal RCA and 30 to 40% stenosis of proximal left circumflex and and was thought her blockages could not be stented. On aspirin, Imdur, metoprolol succinate and rosuvastatin A-fib On metoprolol succinate Was recently cardioverted On Coumadin. INR 2.3 Will monitor Diabetes Continue home long-acting insulin Sliding scale Will monitor Hypertension On Imdur, metoprolol succinate Was on nitro drip for elevated blood pressure which is DC'd as blood pressure is okay now Will monitor Hyperlipidemia On statin Depression On trazodone and Zoloft DVT prophylaxis On Coumadin Monitor PT/INR Disposition Telemetry Full code Addendum: Am labs showed K 6.0 and blood sugars 455. gave iv insulin 5units, iv calcium gluconate, lokelma and consulted nephro for further recommendations. close monitor. History of Present Illness Chief Complaint: Shortness of breath Primary Care Provider: Alfa Jaramillo MD 73-year-old female with past medical history significant for diabetes, peripheral vascular disease, hyperlipidemia, moderate COPD, chronic atrial fibrillation, history of CAD, B12 deficiency, GERD, osteoporosis, history of DVT, history of depression, history of breast cancer, presents with respiratory distress and elevated blood pressure. Patient was recently in [place] for cardiac cath for colicky chest pain for the past year. Cardiac cath showed complete total occlusion in proximal RCA and 30-40 per stenosis of proximal left circumflex and thought her blockages could not be stented. After procedure patient went to [facility] and blood pressure was 84/55 and continued to be hypotensive and was dizzy and lightheaded. Patient had a JORGE and cardioversion with successful results and was discharged home. Today at 9:30 PM patient felt very short of breath and EMS was called her blood pressure was 175 /110 she was started on nitro drip. Chest x-ray showed pulmonary edema and she was given dose of Lasix and was placed on BiPAP. Patient COVID test came back positive. Patient denies any fever. No chest pains. No runny nose. No sore throat. No cough. No decreased appetite. No body aches. Had headache but that resolved now , vision is okay. Constipated. Denies any blood in the stools.Normal micturition. She ambulates with a cane at home and for long distances she uses wheelchair. Currently talking in full sentences and seems comfortable. Past medical history. As mentioned above Past surgical history. Amputation of right toe. Right total knee arthroplasty. Biopsy of the axilla lymph node left side. Carpal tunnel surgery. Colonoscopy. Colonoscopy with biopsy. D&C. Left knee arthroscopy. Ligation of varicose veins. Left partial mastectomy. Cervical spine fusion surgery. Radiation treatment. Social history. . Quit smoking 2014. Smoked 2 pack a day for 36 years. No alcohol currently. No drug use Family history. Mother had breast cancer and diabetes. Maternal grandmother had breast cancer. Sister had cancer. Brother had diabetes. . Father had diabetes and [place] at age of 34 and at age of 52 Allergies Allergy/AdvReac Type Severity Reaction Status Date / Time alendronate sodium Allergy Severe DIFFICULTY Verified 09/21/22 22:31 BREATHING/BURNING SENSATION esomeprazole Allergy Intermediate Hives Verified 09/21/22 22:31 Home Medications Medication Instructions Recorded Confirmed Type albuterol sulfate 90 mcg/actuation 2 puff inhalation QID PRN 01/12/20 11/15/23 History aerosol inhaler (Ventolin HFA) Shortness Of Breath Or Wheezing fluticasone propionate 50 2 spray intranasal QAM 01/12/20 11/15/23 History mcg/actuation nasal spray,suspension (Flonase Allergy Relief) metformin 1,000 mg tablet 1,000 mg PO BIDM 01/12/20 11/15/23 History nitroglycerin 0.3 mg sublingual 0.3 mg sublingual .PRN/UD PRN 01/12/20 11/15/23 History tablet (Nitrostat) Chest Pain pregabalin 150 mg capsule 150 mg PO BID 01/12/20 11/15/23 History sertraline 50 mg tablet 75 mg PO HS 01/12/20 11/15/23 History trazodone 50 mg tablet 50 mg PO HS 01/12/20 11/15/23 History warfarin 5 mg tablet 7.5 mg PO QPM 01/12/20 11/15/23 History cholecalciferol (vitamin D3) 25 1,000 unit PO QAM #30 caps 01/19/20 11/15/23 Rx mcg (1,000 unit) capsule multivitamin (Daily-Moiz tablet) 1 tab PO QAM #30 tabs 01/19/20 11/15/23 Rx metoprolol succinate 50 mg 50 mg PO BID #60 tabs 01/23/20 11/15/23 Rx tablet,extended release 24 hr cyanocobalamin (vitamin B-12) 1,000 mcg sublingual DAILY 09/21/22 11/15/23 History 1,000 mcg sublingual tablet aspirin 81 mg tablet,delayed 81 mg PO QAM 11/15/23 11/15/23 History release insulin aspart U-100 100 unit/mL 0 sliding scale dose continuous 11/15/23 11/15/23 History subcutaneous solution (Novolog subcutaneous infusion .WAITING ON U-100 Insulin aspart) NEW PUMP insulin glargine U-300 conc 300 60 unit subcut AMPM 11/15/23 11/15/23 History unit/mL (1.5 mL) subcutaneous pen (Toujeo SoloStar U-300 Insulin) isosorbide mononitrate 60 mg 60 mg PO QAM 11/15/23 11/15/23 History tablet,extended release 24 hr rosuvastatin 20 mg tablet 20 mg PO QAM 11/15/23 11/15/23 History Past Med/Surg History Medical History Ankle fracture, bimalleolar, closed Asthma Atrial fibrillation Benign neoplasm of colon Chronic anticoagulation Congestive heart failure diastolic; LVEF by echo 01/13/20 70% COPD (chronic obstructive pulmonary disease) Coronary artery disease Diabetes mellitus type 2, uncontrolled Dyslipidemia History of DVT (deep vein thrombosis) "RLE x 2 in 1980s" 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) "Abnormal left breast mammogram 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 Estrogen receptor positive and progesterone receptor positive Status post lumpectomy with sentinel lymph node biopsy stage [id number] 04/07/2015 Status post completion of radiation therapy 07/21/2015 received 6640 cGy" On 07/25/15 17:54 Jayleen Bates wrote "Abnormal left breast mammogram 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 Estrogen receptor positive and progesterone receptor positive Status post lumpectomy with sentinel lymph node biopsy stage [id number] 04/07/2015 Status post completion of radiation therapy 07/21/2015 received 6640 cGy" On 07/25/15 17:49 Jayleen Bates wrote "Abnormal left breast mammogram 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 Estrogen receptor positive and progesterone receptor positive Status post lumpectomy with sentinel lymph node biopsy stage [id number] 04/07/2015" Osteoarthritis Osteoporosis Brittany-prosthetic fracture around prosthetic knee Right knee DJD Surgical History H/O arthroscopic knee surgery H/O colonoscopy H/O partial mastectomy "left breast 04/2015 with lymph node biopsy" H/O vein stripping History of carpal tunnel surgery S/P cervical spinal fusion S/P dilation and curettage Family History Other Breast cancer Diabetes Heart disease Social History Smoking Status: Former smoker Tobacco Type: Cigarettes Second Hand Exposure: No; Do You Dip or Chew Tobacco: No; Hx Alcohol Use: No Hx Substance Use: No Preferred Language: Urdu Communication Ability: Effective Marking Machine Tender Required: Yes Beliefs That Will Affect Care: None Current Living Situation: Spouse Feels Safe at Home: Yes Safety Concerns: Feels Safe At This Time Assistive Devices: Cane, Denture - Upper, Glasses and Wheelchair Review of Systems Review of Systems: All systems reviewed & are unremarkable except as noted in HPI & below Physical Exam Physical Exam: General- Not in distress Head- atraumatic Eyes- PERRL. ENT- oropharynx clear Neck- supple, no JVD. Lungs- clear to auscultation no wheezing or crackles Heart- regular rhythm; no murmur, no gallop. Abdomen- normal bowel sounds, soft, nontender, no distension. Extremities- no pretibial edema, no erythema seen Neuro- alert, oriented PERRL, no facial palsy; no dysarthria; moves extremities. Skin- warm & dry Results & Data Results & Data Vital Signs (Past 12 Hours) Vital Signs Temp Pulse Resp BP Pulse Ox O2 Del Method FiO2 11/15/23 02:05 79 20 118/72 99 BiPAP 30 11/15/23 02:00 79 20 134/76 99 BiPAP 30 11/15/23 01:55 79 21 116/68 100 BiPAP 30 11/15/23 01:50 79 18 114/79 99 BiPAP 11/15/23 01:45 78 19 116/62 97 BiPAP 11/15/23 01:40 77 20 114/62 97 BiPAP 11/15/23 01:35 77 24 113/63 98 BiPAP 30 11/15/23 01:30 79 18 115/61 98 BiPAP 30 11/15/23 01:25 78 22 116/68 97 BiPAP 30 11/15/23 01:20 80 20 116/87 97 BiPAP 30 11/15/23 01:15 78 19 111/67 97 BiPAP 30 11/15/23 01:10 79 22 105/60 99 BiPAP 30 11/15/23 01:05 78 22 118/67 98 BiPAP 30 11/15/23 01:00 76 21 116/68 99 BiPAP 30 11/15/23 00:55 78 18 127/71 97 BiPAP 30 11/15/23 00:50 79 22 130/73 98 BiPAP 30 11/15/23 00:45 80 21 129/75 98 BiPAP 30 11/15/23 00:40 81 23 121/74 98 BiPAP 30 11/15/23 00:35 80 20 126/66 98 BiPAP 30 11/15/23 00:30 79 23 135/70 98 BiPAP 30 11/15/23 00:27 99 H 34 H 99 30 11/15/23 00:25 82 21 133/76 99 BiPAP 30 11/15/23 00:25 36.4 C L 11/15/23 00:20 79 20 126/73 98 BiPAP 30 11/15/23 00:15 81 20 125/69 98 BiPAP 30 11/15/23 00:10 82 20 121/67 98 BiPAP 30 11/15/23 00:05 82 23 120/68 99 BiPAP 30 11/15/23 00:00 82 23 123/76 99 BiPAP 30 11/14/23 23:50 84 22 131/77 98 BiPAP 30 11/14/23 23:45 89 22 137/87 98 BiPAP 30 11/14/23 23:40 88 22 129/76 98 BiPAP 30 11/14/23 23:35 88 22 131/65 99 BiPAP 30 11/14/23 23:33 91 H 24 127/74 98 BiPAP 30 11/14/23 23:22 99 CPAP 30 11/14/23 23:20 98 H 11/14/23 23:19 36.8 C 99 H 28 H 149/89 H 99 CPAP 30 Diagnostic Findings Laboratory Results WBC 8.23 K/ul (4.8-10.8) 11/14/23 23:30 RBC 3.99 M/uL (4.20-5.40) L 11/14/23 23:30 Hgb 11.9 g/dl (12.0-16.0) L 11/14/23 23:30 Hct 36.5 % (37.0-47.0) L 11/14/23 23:30 MCV 91.5 fL (80.0-100.0) 11/14/23 23:30 MCH 29.8 pg (25.0-34.0) 11/14/23: MCHC 32.6 g/dL (32.0-36.0) 11/14/23 23:30 RDW Std Deviation 54.6 fL (36.4-46.3) H 11/14/23: RDW Coeff of Katrin 16.1 % (11.5-14.5) H 11/14/23: Plt Count 154 K/uL (130-400) 11/14/23: MPV 12.0 fL (9.4-12.4) 11/14/23 23: Immature Gran % (Auto) 0.2 % 11/14/23:30 Neut % (Auto) 77.9 % 11/14/23 23:30 Lymph % (Auto) 14.5 % 11/14/23 23:30 Divide % (Auto) 5.2 % 11/14/23 23:30 Eos % (Auto) 1.6 % 11/14/23 23:30 Baso % (Auto) 0.6 % 11/14/23 23:30 Neut # (Auto) 6.41 K/uL (1.40-6.50) 11/14/23 23:30 Lymph # (Auto) 1.19 K/uL (1.20-3.40) L 11/14/23 23:30 Divide # (Auto) 0.43 K/uL (0.11-0.59) 11/14/23 23:30 Eos # (Auto) 0.13 K/uL (0.00-0.50) 11/14/23:30 Baso # (Auto) 0.05 K/uL (0.00-0.20) 11/14/23 23:30 Immature Gran # (Auto) 0.02 K/uL (0.01-0.20) 11/14/23 23:30 PT 23.7 Seconds (9.0-12.0) H 11/14/23 23:30 INR 2.3 (0.9-1.1) H 11/14/23 23:30 APTT 41 Seconds (21-31) H 11/14/23 23:30 PTT Ratio 1.5 11/14/23 23:30 VBG pH 7.33 (7.36-7.41) L 11/14/23 23:30 VBG pCO2 57 mmHg (38-50) H 11/14/23 23:30 VBG pO2 43 mmHg 11/14/23 23:30 VBG HCO3 30 mmol/L 11/14/23 23:30 VBG O2 Saturation 67.9 % 11/14/23 23:30 VBG Base Excess 2.8 mEq/L 11/14/23 23:30 Sodium 137 mmol/L (136-145) 11/14/23 23:30 Potassium 4.2 mmol/L (3.5-5.1) 11/14/23 23:30 Chloride 103 mmol/L (98-107) 11/14/23 23:30 Carbon Dioxide 28 mmol/L (21-32) 11/14/23 23:30 Anion Gap 6 (3-11) 11/14/23 23:30 BUN 18 mg/dl (6-23) 11/14/23 23:30 Creatinine 0.88 mg/dl (0.6-1.2) 11/14/23 23:30 Est Cr Clr Drug Dosing 62.9 ml/min 11/14/23 23:30 Est GFR ( Amer) 75.0 ml/min 11/14/23 23:30 Est GFR (Non-Af Amer) 64.7 ml/min 11/14/23 23:30 BUN/Creatinine Ratio 20.5 (10-20) H 11/14/23 23:30 Glucose 261 mg/dl (70-99(Fasting)) H 11/14/23 23:30 Calcium 9.1 mg/dl (8.6-10.3) 11/14/23 23:30 Phosphorus 2.8 mg/dl (2.5-4.9) 11/14/23 23:30 Magnesium 1.7 mg/dl (1.7-2.4) 11/14/23 23:30 Total Bilirubin 0.5 mg/dl (0.2-1.0) 11/14/23 23:30 AST 40 U/L (13-39) H 11/14/23 23:30 ALT 19 U/L (7-52) 11/14/23 23:30 Alkaline Phosphatase 87 U/L (34-104) 11/14/23 23:30 Troponin I High Sens 170.8 pg/ml (0-14) H* D 11/15/23 01:34 B-Natriuretic Peptide 160 pg/ml (0-100) H 11/14/23 23:30 Total Protein 7.3 gm/dl (6.0-8.3) 11/14/23 23:30 Albumin 3.6 gm/dl (3.4-5.0) 11/14/23 23:30 Globulin 3.7 gm/dl (2.5-4.0) 11/14/23 23:30 Albumin/Globulin Ratio 1.0 (0.9-2) 11/14/23 23:30 Adenovirus (PCR) Not Detected (NotDetected) 11/14/23 23:50 B. pertussis DNA (PCR) Not Detected (NotDetected) 11/14/23 23:50 B.parapertussis DNA PCR Not Detected (NotDetected) 11/14/23 23:50 C. pneumoniae DNA (PCR) Not Detected (NotDetected) 11/14/23 23:50 Coronavirus OC43 (PCR) Not Detected (NotDetected) 11/14/23 23:50 Coronavirus HKU1 (PCR) Not Detected (NotDetected) 11/14/23 23:50 Coronavirus 229E (PCR) Not Detected (NotDetected) 11/14/23 23:50 SARS-CoV-2 (PCR) DETECTED (NotDetected) A 11/14/23 23:50 Coronavirus NL63 (PCR) Not Detected (NotDetected) 11/14/23 23:50 Human Metapneumovir PCR Not Detected (NotDetected) 11/14/23 23:50 Influenza Type A (PCR) Not Detected (NotDetected) 11/14/23 23:50 Influenza Type B (PCR) Not Detected (NotDetected) 11/14/23 23:50 M. pneumoniae (PCR) Not Detected (NotDetected) 11/14/23 23:50 Parainfluenza 1 (PCR) Not Detected (NotDetected) 11/14/23 23:50 Parainfluenza 2 (PCR) Not Detected (NotDetected) 11/14/23 23:50 Parainfluenza 3 (PCR) Not Detected (NotDetected) 11/14/23 23:50 Parainfluenza 4 (PCR) Not Detected (NotDetected) 11/14/23 23:50 RSV (PCR) Not Detected (NotDetected) 11/14/23 23:50 Entero/Rhino (PCR) Not Detected (NotDetected) 11/14/23 23:50 ECG Additional Comments: ECG. Normal sinus rhythm with sinus arrhythmia rate of 87. Incomplete right bundle branch block. Nonspecific T wave abnormality. Code Status & VTE Plan VTE Prophylaxis Plan VTE Prophylaxis will be ordered: Yes
[2023-11-15] MEDS ORDERED: POLYETHYLENE (MIRALAX) 17 GM PACK PO PRN (04:27)
[2023-11-15] MEDS ORDERED: CARBOHYDRATES FOR HYPOGLYCEMIA PO PRN (04:27)
[2023-11-15] MEDS ORDERED: ALBUTEROL HFA 8 GM INHALER INH PRN (04:27)
[2023-11-15] MEDS ORDERED: GLUCOSE 40% GEL 15 GM TUBE PO PRN (04:27)
[2023-11-15] MEDS ORDERED: ACETAMINOPHEN 325 MG TAB PO PRN (04:27)
[2023-11-15] MEDS ORDERED: GLUCAGON FOR INJ 1 MG VIAL SQ PRN (04:27)
[2023-11-15] MEDS ORDERED: NITROGLYCERIN SL 0.4 MG/TAB TAB SL PRN (04:27)
[2023-11-15] MEDS ORDERED: NITROGLYCERIN 0.3 MG/1 TAB 100 TAB BTL SL PRN (04:27)
[2023-11-15] MEDS ORDERED: DEXTROSE 50% 50 ML SYRINGE IV PRN (04:27)
[2023-11-15] MEDS ORDERED: GLUCOSE 10 TAB/TUBE PO PRN (04:27)
[2023-11-15] MEDS ORDERED: LANTUS PER UNIT CHARGE SQ SCH (05:00)
[2023-11-15] MEDS: REMDESIVIR 200 MG in SODIUM CHLORIDE 0.9% 210 ML IV ONE (05:07)
[2023-11-15] MEDS ORDERED: Nursing to Pharmacy Communication SCH (05:15)
[2023-11-15 06:14] LABS: Basophils # (auto) 0.03 K/uL (0.00-0.20); Basophils % (auto) 0.5 %; Eosinophils # (auto) 0.01 K/uL (0.00-0.50); Eosinophils % (auto) 0.2 %; Hematocrit (blood only) 38.1 % (37.0-47.0); Hemoglobin 12.2 g/dl (12.0-16.0); Immature Granulocytes # (auto) 0.03 K/uL (0.01-0.20); Immature Granulocytes % (auto) 0.5 %; Lymphocytes # (auto) 0.53 K/uL (1.20-3.40); Lymphocytes % (auto) 8.2 %; Mean Corpuscular Hemoglobin 29.4 pg (25.0-34.0); Mean Corpuscular Volume 91.8 fL (80.0-100.0); Mean Platelet Volume 11.9 fL (9.4-12.4); Monocytes # (auto) 0.11 K/uL (0.11-0.59); Monocytes % (auto) 1.7 %; Neutrophils # (auto) 5.72 K/uL (1.40-6.50); Neutrophils % (auto) 88.9 %; Platelet Count 124 K/uL (130-400); RDW Standard Deviation 53.8 fL (36.4-46.3); Red Blood Count 4.15 M/uL (4.20-5.40); White Blood Count 6.43 K/ul (4.8-10.8)
[2023-11-15 06:31] LABS: Albumin Level 3.6 gm/dl (3.4-5.0); BUN Creatinine Ratio 19.4 (10-20); Bilirubin Direct 0.2 mg/dl (0-0.2); Bilirubin,Total 0.6 mg/dl (0.2-1.0); Calcium 9.1 mg/dl (8.6-10.3); Creatinine Clr Calc Pharmacy 56.7 ml/min; Est GFR (African American) 70.2 ml/min; Est GFR (Non-African American) 60.5 ml/min; Magnesium 1.6 mg/dl (1.7-2.4); Total Protein 7.4 gm/dl (6.0-8.3); Troponin I High Sensitivity 143.4 pg/ml (0-14)
[2023-11-15] MEDS ORDERED: STAT IV/IM STA (06:34)
[2023-11-15] MEDS: CALCIUM GLUCONATE 10% 1,000 MG in SODIUM CHLOR 0.9% MINI-B 50 ML IV ONE (07:08)
[2023-11-15] MEDS: INSULIN HUMAN REGULAR PER UNIT 5 UNITS in SYRINGE 4.95 ML IV STA (07:08)
--- NOTE | 2023-11-15 07:30 | XRay Report ---
XR chest 1V portable CLINICAL HISTORY: Dyspnea TECHNIQUE: Single frontal radiograph of the chest was obtained. Comparison: Comparison is made to chest radiograph 01/20/2020 FINDINGS: Cervical fixation hardware is seen. Cardiomegaly is noted. The aortic arch is calcified. Lateral bel lar calcification is incidentally noted. There is prominence and cephalization of the vasculature wit h Chelsea B lines seen. No evidence of pleural effusion or pneumothorax. IMPRESSION: Cardiomegaly and moderate pulmonary edema. ACT 112: Negative or not required by law. Electronically signed by: Ghassan Lebron M.D. 11/15/2023 7:28 AM
[2023-11-15] MEDS ORDERED: PHARMACY GLYCEMIC MGMT CONSULT PRN (07:31)
[2023-11-15 07:33] LABS: Estimated Average Glucose 252 mg/dl; Hemoglobin A1C 10.4 % (4.5-5.6)
--- NOTE | 2023-11-15 07:39 | XRay Report ---
XR chest 1V portable CLINICAL HISTORY: hypoxia, covid TECHNIQUE: Single frontal radiograph of the chest was obtained. Comparison: Comparison is made to chest radiograph 11/14/2023 FINDINGS: Cervical spinal fixation hardware is seen. Cardiomegaly is noted. Peribronchial thickening is seen. N o evidence of pleural effusion or pneumothorax. IMPRESSION: Peribronchial thickening is seen compatible with infectious/inflammatory airways disease or viral pne umonia. No robin consolidation is seen. ACT 112: Negative or not required by law. Electronically signed by: Ghassan Lebron M.D. 11/15/2023 7:38 AM
[2023-11-15] MEDS: ASPIRIN 81 MG ECTAB PO SCH (08:06)
[2023-11-15] MEDS: MULTIVITAMIN TAB PO SCH (08:07)
[2023-11-15] MEDS: CHOLECALCIFEROL 25 MCG (1000 UNITS) TAB PO SCH (08:07)
[2023-11-15] MEDS: METOPROLOL SUCC 50MG EXT REL TAB PO SCH (08:08)
[2023-11-15] MEDS: CYANOCOBALAMIN (B-12) 500 MCG TABLET PO SCH (08:08)
[2023-11-15] MEDS: ISOSORBIDE MONO EXTENDED REL 60 MG TABCR PO SCH (08:08)
[2023-11-15] MEDS: ROSUVASTATIN CALCIUM 20 MG TAB PO SCH (08:09)
[2023-11-15] MEDS: MAGNESIUM SULFATE / D5W 1 GM/100 ML BAG IV SCH (08:10)
[2023-11-15] MEDS: LANTUS PER UNIT CHARGE SC ONE ×3 (08:28→17:17)
[2023-11-15] MEDS: INSULIN ASPART PER UNIT CHARGE SC SCH ×2 (08:28→17:54)
[2023-11-15 08:32] LABS: INR 2.9 (0.9-1.1); Prothrombin Time 29.4 Seconds (9.0-12.0)
[2023-11-15] MEDS: PREGABALIN 150 MG CAP PO SCH (08:36)
[2023-11-15] MEDS: SODIUM ZIRCONIUM CYCLOSILICATE 10 GM PACKET PO SCH (08:37)
[2023-11-15] MEDS: FLUTICASONE PROPIONATE NA SPR 16 GM BTL SCH (08:40)
[2023-11-15] MEDS ORDERED: dexAMETHasone 6 MG in SYRINGE 0 ML IV SCH (09:00)
--- NOTE | 2023-11-15 11:15 | Pharmacy Report ---
Pharmacy Glycemic Short Note 2 - Date of Service November 15, 2023 - Glycemic Short BSG Results (Last 24 hours): 11/14/23 11/15/23 11/15/23 23:30 05:45 06:36 Glucose 261 H 445 H* POC Glucose 427 H* 11/15/23 11/15/23 06:37 07:25 Glucose POC Glucose 423 H* 390 H* OUTPATIENT ANTIDIABETIC REGIMEN: * metformin 1000mg QAM * Ozempic 2mg QSUN * Toujeo 60 units BID PRN pump failure * Novolog Medtronic 780G insulin pump (per 10/24/23 [facility] visit records) * Average 200 units of basal daily * Total daily dose ~290-350 units daily * Sensitivity factor: 10 * Carbohydrate ratio: 5 (using preset boluses) * Preset boluses: 25 units with breakfast, 45 units with lunch, and 40 units with dinner * HbA1c 10.4% (11/15/23) ASSESSMENT: * Graciela is a 73 YOF admitted with COVID and a history of type 2 diabetes mellitus managed on a Novolog pump outpatient. Pharmacy has been consulted to assist with glycemic management while inpatient. * Reported failure of insulin pump before admission and waiting on a new one per med rec notes * BSGs elevated on admission at 261 (no treatment administered) and received Dexamethasone 6mg IV for COVID last night, BSGs trended into the 400's overnight. Dexamethasone placed on hold by hospitalist. IV regular insulin bolus (5 units) given early this morning, stat dose of Lantus ordered and tightened Novolog. Dosed conservatively in the AM as patient only required ~100 units of insulin on previous admission in 2019. * Lunchtime BSG today 454/437, 10 units IV regular insulin ordered, additional Lantus, and tightened Novolog significantly. Elevations likely due to combination of dexamethasone given yesterday and high outpatient needs. PLAN FOR INPATIENT GLYCEMIC CONTROL: * Hold outpatient diabetes medications * Basal insulin * Lantus 40 units SQ now x1, Lantus 40 units with lunch x1 * Lantus 40-80 units SQ BID based on BSG (see eMAR for additional details) * Bolus insulin * NovoLog per scale ACHS or Q6hrs while NPO * Goal Range: Low 110 mg/dL - High 140 mg/dL * Correction Factor: 10 mg/dL/unit * Nutritional / Prandial insulin per carb ratio of 1 unit per 2 grams CHO consumed
--- NOTE | 2023-11-15 11:28 | Cardiology Consultation ---
Date of Consultation November 15, 2023 Assessment & Plan (1) Respiratory distress: (2) Hypertensive urgency: (3) ASCVD (arteriosclerotic cardiovascular disease): (4) Atrial fibrillation: (5) Flash pulmonary edema: Plan 73-year-old female presenting from home via EMS with respiratory distress, pulmonary edema following direct-current cardioversion post cardiac catheter[place] [facility] [place], [place]23. Patient with active Covid-19 infection. Pulmonary edema has significantly improved following administration of IV furosemide. Hyperkalemia observed on AM labs, receiving treatment under the direction of Nephrology. Patient maintaining sinus rhythm thus far post recent cardioversion, prior history of chronic atrial fibrillation, severely enlarged left atrium. Blood pressure controlled. Mild aortic valve stenosis noted along with a PFO. Recommendations: 1. IV furosemide as ordered today, reassessing ongoing need in AM of November 16, 2023 2. Expect reversion back to atrial fibrillation at some point, likely requiring resumption of digoxin and/or titration of metoprolol 3. Maintain anticoagulation, INR goal of 2.0-3.0 4. Continue medical management of the patient's coronary artery disease 5. Continue beta-adis, aspirin, statin, and long-acting nitrates I spent a total of 55 minutes on the date of service in preparation, delivery, and documentation of the care provided to this patient excluding any time spent in the performance of separately billed services. This visit was a split-shared visit with the substantive portion of the medical decision making performed by the supervising oracle soa consultant/billing provider. Supervising Physician Co-Signing Physician Notes I have reviewed the advance practitioner's documentation, and I agree with, and take responsibility for the plan of care. 73-year-old female present to the emergency department with acute shortness of breath. Chest x-ray revealing flash pulmonary edema. Recent history significant for cardiac catheterization demonstrating chronic RCA occlusion. Patient managed medically. Post catheterization elevated heart rates noted with hemodynamic instability. She underwent a an urgent transesophageal echo guided cardioversion. Remains in sinus rhythm since admission, however, review of the [facility] record demonstrates persistent likely chronic A-fib dating back to 2019. Clinically improved with IV diuresis. PE: VSS. Gen: NAD, AAO x3. Heart: Regular rhythm. Normal S1-S2. 2/6 low pitched mid peaking systolic ejection murmur heard best at the right second costal space. Lungs: Diminished breath sounds at the bases, no rales, rhonchi, wheeze. Extremities: Trace pedal edema. A/P: 73-year-old female admitted with post cardioversion flash pulmonary edema, acute heart failure with preserved ejection fraction. Significant clinical improvement with IV diuretic therapy. Reassess need for further diuresis in a.m./07/29. Continue beta-adis, warfarin, aspirin, statin, long-acting nitrates as ordered. I spent a total of 25 minutes on the date of service in preparation, delivery, and documentation of the care provided to this patient, excluding any time spent in the performance of separately billed services. History of Present Illness Reason for Consultation: Hypertensive urgency, CHF? Requesting Physician: Dr. Arnold Attending Physician: Dr. Nupur Ramirez MD History of Present Illness Mr. Graciela Mobley is a 73-year-old female who has been managed medically for presumed coronary artery disease dating back to abnormal stress testing in 2019. In October 2023 she presented to the cardiology clinic with worsening chest discomfort and decreased exercise tolerance and was referred for diagnostic cardiac catheterization at [facility] in [place], [place]. It should be noted that the patient has a history of permanent atrial fibrillation and is chronically prescribed both metoprolol and digoxin and Coumadin anticoagulation. Diagnostic cardiac catheterization performed on November 12, 2023 revealed a 100% chronic total occlusion of the proximal RCA with left to right collaterals and a 30 to 40% stenosis of the proximal left circumflex coronary artery with mild luminal irregularities otherwise observed in the left circulation. Postcatheterization course complicated by a rapid ventricular response of the patient's chronic atrial fibrillation with associated hypotension with systolic blood pressures into the 80s. Documentation states that the patient was unable to move from a supine position due to significant lightheadedness and dizziness. She was given 100 mcg of phenylephrine along with normal saline solution at 100 mL/h without improvement. Transesophageal echocardiography was performed revealing normal left ventricular ejection fraction (EF 65 to 69%) with no segmental left ventricular wall motion abnormalities. No mass or thrombus was seen in the left atrial appendage. Spontaneous echo contrast was noted in the left atrial appendage. The left atrium was notably severely enlarged. A moderate-sized patent foramen ovale was also observed along with mild aortic valve stenosis and mild aortic regurgitation. Urgent cardioversion was performed with successful conversion to sinus rhythm. The patient was discharged to home on November 13, 2023 with recommendations to discontinue digoxin. Patient notes feeling well throughout the day on Sunday, November 14, 2023. When retiring for the night and laying down patient developed significant shortness of breath with associated diaphoresis. EMS was summoned. Hypertens ion was observed with blood pressure 175/110. Patient notes improvement in dyspnea with utilization of supplemental oxygen. Nitro drip initiated. Chest x-ray revealed cardiomegaly with moderate pulmonary edema. Patient was administered 40 mg of IV Lasix along with BiPAP therapy with significant improvement. Laboratory work notable for positive COVID testing. Patient denies chest pain or discomfort. No palpitations. Breathing has significantly improved and is almost back to baseline at the time of my evaluation. She notes a chronic nonproductive cough. No current orthopnea or PND. No lower extremity peripheral edema. No current dizziness or lightheadedness. No fevers. No chills. No night sweats. No melena. No hematochezia. No hematuria Family History: Notable for CAD in her father. Social History: Reformed smoker having quit 12 years ago. No significant alcohol. No illegal drug use. Lives with her . 4 children, daughter at age 40, etiology unclear Allergies Allergy/AdvReac Type Severity Reaction Status Date / Time alendronate sodium Allergy Severe DIFFICULTY Verified 09/21/22 22:31 BREATHING/BURNING SENSATION esomeprazole Allergy Intermediate Hives Verified 09/21/22 22:31 Home Medications Medication Instructions Recorded Confirmed Type albuterol sulfate 90 mcg/actuation 2 puff inhalation QID PRN 01/12/20 11/15/23 History aerosol inhaler (Ventolin HFA) Shortness Of Breath Or Wheezing fluticasone propionate 50 2 spray intranasal QAM 01/12/20 11/15/23 History mcg/actuation nasal spray,suspension (Flonase Allergy Relief) metformin 1,000 mg tablet 1,000 mg PO BIDM 01/12/20 11/15/23 History nitroglycerin 0.3 mg sublingual 0.3 mg sublingual .PRN/UD PRN 01/12/20 11/15/23 History tablet (Nitrostat) Chest Pain pregabalin 150 mg capsule 150 mg PO BID 01/12/20 11/15/23 History sertraline 50 mg tablet 75 mg PO HS 01/12/20 11/15/23 History trazodone 50 mg tablet 50 mg PO HS 01/12/20 11/15/23 History warfarin 5 mg tablet 7.5 mg PO QPM 01/12/20 11/15/23 History cholecalciferol (vitamin D3) 25 1,000 unit PO QAM #30 caps 01/19/20 11/15/23 Rx mcg (1,000 unit) capsule multivitamin (Daily-Moiz tablet) 1 tab PO QAM #30 tabs 01/19/20 11/15/23 Rx metoprolol succinate 50 mg 50 mg PO BID #60 tabs 01/23/20 11/15/23 Rx tablet,extended release 24 hr cyanocobalamin (vitamin B-12) 1,000 mcg sublingual DAILY 09/21/22 11/15/23 History 1,000 mcg sublingual tablet aspirin 81 mg tablet,delayed 81 mg PO QAM 11/15/23 11/15/23 History release insulin aspart U-100 100 unit/mL 0 sliding scale dose continuous 11/15/23 11/15/23 History subcutaneous solution (Novolog subcutaneous infusion .WAITING ON U-100 Insulin aspart) NEW PUMP insulin glargine U-300 conc 300 60 unit subcut AMPM 11/15/23 11/15/23 History unit/mL (1.5 mL) subcutaneous pen (Toujeo SoloStar U-300 Insulin) isosorbide mononitrate 60 mg 60 mg PO QAM 11/15/23 11/15/23 History tablet,extended release 24 hr rosuvastatin 20 mg tablet 20 mg PO QAM 11/15/23 11/15/23 History Patient History Medical History Congestive heart failure diastolic; LVEF by echo 01/13/20 70% Osteoporosis Diabetes mellitus type 2, uncontrolled Coronary artery disease Atrial fibrillation Ankle fracture, bimalleolar, closed Brittany-prosthetic fracture around prosthetic knee Benign neoplasm of colon COPD (chronic obstructive pulmonary disease) Asthma Dyslipidemia Chronic anticoagulation Osteoarthritis History of DVT (deep vein thrombosis) "RLE x 2 in " 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) "Abnormal left breast mammogram 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 Estrogen receptor positive and progesterone receptor positive Status post lumpectomy with sentinel lymph node biopsy stage [id number] 04/07/2015 Status post completion of radiation therapy 07/21/2015 received 6640 cGy" On 07/25/15 17:54 Jayleen Bates wrote "Abnormal left breast mammogram 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 Estrogen receptor positive and progesterone receptor positive Status post lumpectomy with sentinel lymph node biopsy stage [id number] 04/07/2015 Status post completion of radiation therapy 07/21/2015 received 6640 cGy" On 07/25/15 17:49 Jayleen Bates wrote "Abnormal left breast mammogram 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 Estrogen receptor positive and progesterone receptor positive Status post lumpectomy with sentinel lymph node biopsy stage [id number] 04/07/2015" Surgical History H/O partial mastectomy "left breast 04/2015 with lymph node biopsy" H/O arthroscopic knee surgery H/O colonoscopy History of carpal tunnel surgery S/P cervical spinal fusion S/P dilation and curettage H/O vein stripping Family History Other Breast cancer Diabetes Heart disease Social History Smoking Status: Former smoker Tobacco Type: Cigarettes Second Hand Exposure: No; Do You Dip or Chew Tobacco: No; Hx Alcohol Use: No Hx Substance Use: No Preferred Language: [place] Communication Ability: Effective Baker Bench Required: Yes Beliefs That Will Affect Care: None Current Living Situation: Spouse Feels Safe at Home: Yes Safety Concerns: Feels Safe At This Time Assistive Devices: Cane, Walker and Wheelchair Review of Systems Review of Systems: Complete review of systems is otherwise as stated above, negative, or noncontributory Physical Exam Physical Exam: General: A&Ox3. NAD. HENT: Normocephalic. Atraumatic. Eyes: PER. Conjunctiva pink, sclera clear. Neck: Mild JVD. Heart: Regular at 90 bpm. Grade II/ systolic ejection murmur. No diastolic murmur. Lungs: Clear to auscultation. Abdomen: +BS. Soft. Nontender. No masses or organomegaly. Extremities: Minimal edema. No clubbing. No cyanosis. Limited neurological examination is without focal deficits. Pulses: radial=2/4, posterior tibial=1/4. Results & Data Vital Signs (Past 12 Hours) Vital Signs Temp Pulse Pulse Resp BP BP Pulse Ox 11/15/23 07:22 88 11/15/23 07:21 36.8 C 85 18 163/91 H 95 11/15/23 04:51 11/15/23 04:28 36.4 C L 92 H 20 151/78 H 96 11/15/23 04:27 11/15/23 04:00 11/15/23 03:20 79 20 98 11/15/23 03:16 80 11/15/23 02:05 79 20 118/72 99 11/15/23 02:00 79 20 134/76 99 11/15/23 01:55 79 21 116/68 100 11/15/23 01:50 79 18 114/79 99 11/15/23 01:45 78 19 116/62 97 11/15/23 01:40 77 20 114/62 97 11/15/23 01:35 77 24 113/63 98 11/15/23 01:30 79 18 115/61 98 11/15/23 01:25 78 22 116/68 97 11/15/23 01:20 80 20 116/87 97 11/15/23 01:15 78 19 111/67 97 11/15/23 01:10 79 22 105/60 99 11/15/23 01:05 78 22 118/67 98 11/15/23 01:00 76 21 116/68 99 11/15/23 00:55 78 18 127/71 97 11/15/23 00:50 79 22 130/73 98 11/15/23 00:45 80 21 129/75 98 11/15/23 00:40 81 23 121/74 98 11/15/23 00:35 80 20 126/66 98 11/15/23 00:30 79 23 135/70 98 11/15/23 00:27 99 H 34 H 99 11/15/23 00:25 82 21 133/76 99 11/15/23 00:25 36.4 C L 11/15/23 00:20 79 20 126/73 98 11/15/23 00:15 81 20 125/69 98 11/15/23 00:10 82 20 121/67 98 11/15/23 00:05 82 23 120/68 99 11/15/23 00:00 82 23 123/76 99 11/14/23 23:50 84 22 131/77 98 11/14/23 23:45 89 22 137/87 98 11/14/23 23:40 88 22 129/76 98 11/14/23 23:35 88 22 131/65 99 11/14/23 23:33 91 H 24 127/74 98 11/14/23 23:22 99 11/14/23 23:20 98 H 11/14/23 23:19 36.8 C 99 H 28 H 149/89 H 99 O2 Del Method O2 Flow Rate FiO2 11/15/23 07:22 11/15/23 07:21 Nasal Cannula 1 11/15/23 04:51 Room Air 11/15/23 04:28 Oxymask 3 11/15/23 04:27 Room Air 11/15/23 04:00 BiPAP 11/15/23 03:20 30 11/15/23 03:16 11/15/23 02:05 BiPAP 30 11/15/23 02:00 BiPAP 30 11/15/23 01:55 BiPAP 30 11/15/23 01:50 BiPAP 30 11/15/23 01:45 BiPAP 11/15/23 01:40 BiPAP 11/15/23 01:35 BiPAP 30 11/15/23 01:30 BiPAP 30 11/15/23 01:25 BiPAP 30 11/15/23 01:20 BiPAP 30 11/15/23 01:15 BiPAP 30 11/15/23 01:10 BiPAP 30 11/15/23 01:05 BiPAP 30 11/15/23 01:00 BiPAP 30 11/15/23 00:55 BiPAP 30 11/15/23 00:50 BiPAP 30 11/15/23 00:45 BiPAP 30 11/15/23 00:40 BiPAP 30 11/15/23 00:35 BiPAP 30 11/15/23 00:30 BiPAP 30 11/15/23 00:27 30 11/15/23 00:25 BiPAP 30 11/15/23 00:25 04/11/24 00:20 BiPAP 30 11/15/23 00:15 BiPAP 30 11/15/23 00:10 BiPAP 30 11/15/23 00:05 BiPAP 30 11/15/23 00:00 BiPAP 30 11/14/23 23:50 BiPAP 30 11/14/23 23:45 BiPAP 30 11/14/23 23:40 BiPAP 30 11/14/23 23:35 BiPAP 30 11/14/23 23:33 BiPAP 30 11/14/23 23:22 CPAP 30 11/14/23 23:20 11/14/23 23:19 CPAP 30 Laboratory Results Cardiac Enzymes 11/14/23 11/15/23 11/15/23 Range/Units 23:30 01:34 05:45 AST 40 H 36 (13-39) U/L Troponin I High Sens 126.1 H* 170.8 H* D 143.4 H* (0-14) pg/ml B-Natriuretic Peptide 160 H (0-100) pg/ml Coagulation 11/14/23 11/15/23 Range/Units 23:30 07:50 PT 23.7 H 29.4 H (9.0-12.0) Seconds APTT 41 H (21-31) Seconds B-Natriuretic Peptide 160 H (0-100) pg/ml CBC 11/14/23 11/15/23 Range/Units 23:30 05:45 WBC 8.23 6.43 (4.8-10.8) K/ul RBC 3.99 L 4.15 L (4.20-5.40) M/uL Hgb 11.9 L 12.2 (12.0-16.0) g/dl Hct 36.5 L 38.1 (37.0-47.0) % Plt Count 154 124 L (130-400) K/uL Neut # (Auto) 6.41 5.72 (1.40-6.50) K/uL Lymph # (Auto) 1.19 L 0.53 L (1.20-3.40) K/uL [place] # (Auto) 0.43 0.11 (0.11-0.59) K/uL Eos # (Auto) 0.13 0.01 (0.00-0.50) K/uL Baso # (Auto) 0.05 0.03 (0.00-0.20) K/uL Comprehensive Metabolic Panel 11/14/23 11/15/23 Range/Units 23:30 05:45 Sodium 137 135 L (136-145) mmol/L Potassium 4.2 6.0 H D (3.5-5.1) mmol/L Chloride 103 101 (98-107) mmol/L Carbon Dioxide 28 28 (21-32) mmol/L BUN 18 18 (6-23) mg/dl Creatinine 0.88 0.93 (0.6-1.2) mg/dl Glucose 261 H 445 H* (70-99(Fasting)) mg/dl Calcium 9.1 9.1 (8.6-10.3) mg/dl Direct Bilirubin 0.2 (0-0.2) mg/dl AST 40 H 36 (13-39) U/L ALT 19 20 (7-52) U/L Alkaline Phosphatase 87 84 (34-104) U/L Total Protein 7.3 7.4 (6.0-8.3) gm/dl Albumin 3.6 3.6 (3.4-5.0) gm/dl Intake and Output 11/14/23 11/15/23 11/15/23 22:59 06:59 14:59 Intake Total 10.65 / 10.65 460 / 460 Output Total 1400 / 1400 Balance -1389.35 / -1389.35 460 / 460 Intake: IV 10.65 / 10.65 460 / 460 Calcium Gluconate 10% 1,000 mg 60 / 60 In Sodium Chlor 0.9% Mini-B 50 ml @ 240 mls/hr IV NOW ONE Rx#: [id number] Magnesium Sulfate / D5w 1 gm In 150 / 150 100 ml @ 50 mls/hr IV Q2H [facility] Rx#:[id number] Nitroglycerin/D5w 100Mcg/ml 250 10.65 / 10.65 ml @ 5 MCG/MIN 3 mls/hr IV . Q24H [facility] Rx#:[id number] Remdesivir 200 mg In Sodium 250 / 250 Chloride 0.9% 210 ml @ 125 mls/ hr IV NOW ONE Rx#:[id number] Output: Urine Amount (Catheter) 1400 / 1400 [place]/Indwelling 1400 / 1400 Other: Weight 83.642 kg Weight Measurement Method Built in [facility] Diagnostic Findings Telemetry: Maintaining sinus with heart rates predominantly in the 80s and 90s. (4) Atrial fibrillation Atrial fibrillation type: paroxysmal Qualified Code(s): I48.0 - Paroxysmal atrial fibrillation
[2023-11-15] MEDS ORDERED: INSULIN ASPART PER UNIT CHARGE SC STA (11:53)
[2023-11-15] MEDS: INSULIN HUMAN REGULAR PER UNIT 10 UNITS in SYRINGE 9.9 ML IV ONE (12:57)
[2023-11-15 13:45] LABS: BUN Creatinine Ratio 21.4 (10-20); Calcium 9.1 mg/dl (8.6-10.3); Creatinine Clr Calc Pharmacy 51.2 ml/min; Est GFR (Non-African American) 53.5 ml/min; Potassium 4.2 mmol/L (3.5-5.1)
--- NOTE | 2023-11-15 14:45 | Nephrology Consultation ---
Date of Consultation November 15, 2023 Assessment & Plan (1) Hyperkalemia: (2) Pseudohyponatremia: (3) Flash pulmonary edema: Plan I have been consulted for hyperkalemia which is in the setting of extremely high blood glucose of 400+. Such high hyperglycemia causes extracellular potassium shift and causes hyperkalemia. she also has pulmonary edema and after Lasix potassium has come down to normal. her glucose is still high on the most recent blood work at 522 and is now c ausing pseudohyponatremia. She is at high risk of hyperkalemia again if she keeps getting glucose reading this high aggressive we lower serum glucose and try to keep it under 250 to avoid pseudohyponatremia or hyperkalemia. If we do the correction formula for the extremely high blood glucose her serum sodium is normal. Normal kidney function. daily renal panel History of Present Illness Reason for Consultation: Hyperkalemia Attending Physician: Nupur Ramirez MD History of Present Illness 73/F with long standing diabetes, peripheral vascular disease, hyperlipidemia, moderate COPD, chronic atrial fibrillation, history of CAD, B12 deficiency, GERD, osteoporosis, history of DVT, history of depression, history of breast cancer, presented with respiratory distress and elevated blood pressure. Patient was recently in [place] for cardiac cath for chest pain - showed complete total occlusion in proximal RCA and 30-40 per stenosis of proximal left circumflex and thought her blockages could not be stented. After procedure patient went to rapid A-fib and blood pressure was 84/55 and continued to be hypotensive and was dizzy and lightheaded. Patient had a JORGE and cardioversion with successful results and was discharged home. yesterday patient felt very short of breath suddenly and EMS was called her blood pressure was 175 /110 she was started on nitro drip. Chest x-ray showed pulmonary edema and she was given dose of Lasix and was placed on BiPAP. Patient COVID test came back positive. Her glucose was 400+ and potassium was high at 6 but normal kidney function and I was consulted for hyperkalemia. Patient denies any fever. No chest pains. No runny nose. No sore throat. No cough. No decreased appetite. No body aches. Had headache but that resolved now , vision is okay. Constipated. Denies any blood in the stools.Normal micturition. She ambulates with a cane at home and for long distances she uses wheelchair. Currently talking in full sentences and seems comfortable. review of systems----- as detailed in HPI she was suddenly short of breath and was also having some cough and orthopnea. Very slight edema only. otherwise 12 systems reviewed and negative physical examination elderly white female who is awake alert oriented x3. She has not in any respiratory distress and was able to give detailed account of her complicated med medical history mucous membrane is moist neck is supple no JVD chest bilateral decreased breath sounds and occasional crackles no respiratory distress she is on 1 L nasal cannula with 95% oxygen saturation CVS S1 and S2 regular soft systolic murmur heard abdomen is soft nontender extremities shows trace edema Allergies Allergy/AdvReac Type Severity Reaction Status Date / Time alendronate sodium Allergy Severe DIFFICULTY Verified 09/21/22 22:31 BREATHING/BURNING SENSATION esomeprazole Allergy Intermediate Hives Verified 09/21/22 22:31 Home Medications Medication Instructions Recorded Confirmed Type albuterol sulfate 90 mcg/actuation 2 puff inhalation QID PRN 01/12/20 11/15/23 History aerosol inhaler (Ventolin HFA) Shortness Of Breath Or Wheezing fluticasone propionate 50 2 spray intranasal QAM 01/12/20 11/15/23 History mcg/actuation nasal spray,suspension (Flonase Allergy Relief) metformin 1,000 mg tablet 1,000 mg PO BIDM 01/12/20 11/15/23 History nitroglycerin 0.3 mg sublingual 0.3 mg sublingual .PRN/UD PRN 01/12/20 11/15/23 History tablet (Nitrostat) Chest Pain pregabalin 150 mg capsule 150 mg PO BID 01/12/20 11/15/23 History sertraline 50 mg tablet 75 mg PO HS 01/12/20 11/15/23 History trazodone 50 mg tablet 50 mg PO HS 01/12/20 11/15/23 History warfarin 5 mg tablet 7.5 mg PO QPM 01/12/20 11/15/23 History cholecalciferol (vitamin D3) 25 1,000 unit PO QAM #30 caps 01/19/20 11/15/23 Rx mcg (1,000 unit) capsule multivitamin (Daily-Moiz tablet) 1 tab PO QAM #30 tabs 01/19/20 11/15/23 Rx metoprolol succinate 50 mg 50 mg PO BID #60 tabs 01/23/20 11/15/23 Rx tablet,extended release 24 hr cyanocobalamin (vitamin B-12) 1,000 mcg sublingual DAILY 09/21/22 11/15/23 History 1,000 mcg sublingual tablet aspirin 81 mg tablet,delayed 81 mg PO QAM 11/15/23 11/15/23 History release insulin aspart U-100 100 unit/mL 0 sliding scale dose continuous 11/15/23 11/15/23 History subcutaneous solution (Novolog subcutaneous infusion .WAITING ON U-100 Insulin aspart) NEW PUMP insulin glargine U-300 conc 300 60 unit subcut AMPM 11/15/23 11/15/23 History unit/mL (1.5 mL) subcutaneous pen (Toujeo SoloStar U-300 Insulin) isosorbide mononitrate 60 mg 60 mg PO QAM 11/15/23 11/15/23 History tablet,extended release 24 hr rosuvastatin 20 mg tablet 20 mg PO QAM 11/15/23 11/15/23 History Patient History Medical History Congestive heart failure diastolic; LVEF by echo 01/13/20 70% Osteoporosis Diabetes mellitus type 2, uncontrolled Coronary artery disease Atrial fibrillation Ankle fracture, bimalleolar, closed Brittany-prosthetic fracture around prosthetic knee Benign neoplasm of colon COPD (chronic obstructive pulmonary disease) Asthma Dyslipidemia Chronic anticoagulation Osteoarthritis History of DVT (deep vein thrombosis) "RLE x 2 in 1980s" 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) "Abnormal left breast mammogram 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 Estrogen receptor positive and progesterone receptor positive Status post lumpectomy with sentinel lymph node biopsy stage [id number] 04/07/2015 Status post completion of radiation therapy 07/21/2015 received 6640 cGy" On 07/25/15 17:54 Jayleen Bates wrote "Abnormal left breast mammogram 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 Estrogen receptor positive and progesterone receptor positive Status post lumpectomy with sentinel lymph node biopsy stage [id number] 04/07/2015 Status post completion of radiation therapy 07/21/2015 received 6640 cGy" On 07/25/15 17:49 Jayleen Zaragoza Paulo wrote "Abnormal left breast mammogram 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 Estrogen receptor positive and progesterone receptor positive Status post lumpectomy with sentinel lymph node biopsy stage [id number] 04/07/2015" Surgical History H/O partial mastectomy "left breast 04/2015 with lymph node biopsy" H/O arthroscopic knee surgery H/O colonoscopy History of carpal tunnel surgery S/P cervical spinal fusion S/P dilation and curettage H/O vein stripping Family History Other Breast cancer Diabetes Heart disease Social History Smoking Status: Former smoker Tobacco Type: Cigarettes Second Hand Exposure: No; Do You Dip or Chew Tobacco: No; Hx Alcohol Use: No Hx Substance Use: No Preferred Language: Tunisian Communication Ability: Effective Managed Care Coordinator Required: Yes Beliefs That Will Affect Care: None Current Living Situation: Spouse Feels Safe at Home: Yes Safety Concerns: Feels Safe At This Time Assistive Devices: Cane, Walker and Wheelchair Results & Data Vital Signs (Past 12 Hours) Vital Signs Temp Pulse Pulse Resp BP Pulse Ox O2 Del Method 11/15/23 11:36 36.9 C 77 18 129/70 95 Nasal Cannula 11/15/23 08:15 Nasal Cannula 11/15/23 07:22 88 11/15/23 07:21 36.8 C 85 18 163/91 H 95 Nasal Cannula 11/15/23 04:51 Room Air 11/15/23 04:28 36.4 C L 92 H 20 151/78 H 96 Oxymask 11/15/23 04:27 Room Air 11/15/23 04:00 BiPAP 11/15/23 03:20 79 20 98 11/15/23 03:16 80 O2 Flow Rate FiO2 11/15/23 11:36 1 11/15/23 08:15 1 11/15/23 07:22 11/15/23 07:21 1 11/15/23 04:51 11/15/23 04:28 3 11/15/23 04:27 11/15/23 04:00 11/15/23 03:20 30 11/15/23 03:16 Laboratory Results reviewed. Very high glucose causing pseudohyponatremia as well as hyperkalemia Diagnostic Findings chest x-ray shows pulmonary edema
[2023-11-15] MEDS ORDERED: SEVERE STRESS LEVEL ONE (16:26)
[2023-11-15] MEDS ORDERED: INSULIN PROTOCOL GOAL RANGE ONE (16:26)
[2023-11-15] MEDS ORDERED: STAT IV Infusion **Titration per Protocol STA (16:26)
--- NOTE | 2023-11-15 16:31 | Communication Note ---
Date of Service: November 15, 2023 Evaluated patient at bedside. Reports feeling much improved overall since admission--expressing ability to breath easier than when she first arrived to ED . Exam with ANNIE, no lower extremity edema, bilateral crackles Labs with hyperglycemia in 400-500s, mag 1.6 Ms. Itz Owens is a 73-year-old female with past medical history significant for diabetes, peripheral vascular disease, hyperlipidemia, moderate COPD, chronic atrial fibrillation, history of CAD, B12 deficiency, GERD, osteoporosis, history of DVT, history of depression, history of breast cancer admitted for management of flash pulmonary edema. Patient with history of recent cardiac cath showed complete total occlusion in proximal RCA and 30-40 per stenosis of proximal left circumflex without stent placement. Course complicated by a fib RVR and hypotension. Patient s/p cardioversion and discharged home; however, shortly thereafter on 11/13, patient felt very short of breath and EMS was called. Patient started on nitro drip after being found to be hypertensive and with pulmonary edema. Patient started on IV lasix and bipap with notable improvement. Patient with post-cardioversion flash pulmonary edema and acute heart failure with preserved ejection fraction. #Acute hypoxic respiratory failure iso flash pulmonary edema #Atrial Fibrillation s/p cardioversion #Acute on chronic heart failure with preserved ejection fraction #Occlusive CAD s/p recent PCI, chronic occlusive disease ECHO with >70% EF, LVH, PASP 39mmhg, GDIII DD Cardiology following Continue to follow need for IV lasix Continue coumadin 7.5 mg with goal 2-3 Continue imdur, metoprolol xl BID Continue statin and asa #Positive for COVID asymptomatic, hypoxia 2/2 edema dexamethasone discontinued given degree of hyperglycemia requiring insulin drip discontinue remdesivir given asymptomatic (no fevers, chills, myalgias, cough etc) COVID isolation and precautions #Hyperglycemia #Diabetes Patient on aggressive insulin regimen; notably hyperglycemic especially s/p decadron, resistant to subq thus far Start insulin drip glycemic consult #Hypertension On Imdur, metoprolol succinate Was on nitro drip for elevated blood pressure which is DC'd as blood pressure is okay now Will monitor #Hyperlipidemia On statin #Depression On trazodone and Zoloft DVT prophylaxis On Coumadin Monitor PT/INR Disposition Telemetry
[2023-11-15] MEDS: WARFARIN SOD 7.5 MG TAB PO SCH (17:20)
[2023-11-15] MEDS: INSULIN REGULAR 250 UNITS in SODIUM CHLORIDE 0.9% 247.5 ML IV SCH (17:38)
[2023-11-15] MEDS: INSULIN HUMAN REGULAR IV BOLUS 3 UNITS in SYRINGE 0 ML IV ONE (17:39)
--- OUTSIDE RECORDS SUMMARY | 2023-11-15 18:34 | External Medical Summary | Summary of Care ---
Author Name Unknown Organization [facility] Address [address] [place] [address] Phone [phone] Care Team Providers Care Seismograph Computer Name Role Phone Alfa Jaramillo MD Primary Care Provider [phone] Reason for Referral * Evaluate & Treat - Unlimited Visits (Within 10 days (routine)) - Authorized Specialty Diagnoses / Procedures Referred By Roberto gomez Referred To Contact Endocrinology/Metabolism / Endocrinology Diagnoses Type 2 diabetes mellitus with foot ulcer (CODE) (HCC) Valentino Diaz DO [address] [place] [address] Referral ID Status Reason Start Date Expiration Date Visits Requested Visits Authorized [id number] Authorized Specialty Services Required 11/13/[phone] Question Answer Referral Priority Within 10 days (routine) Where should this appointment be scheduled? [facility] For what condition is the patient being referred? Diabetes Mellitus For which diabetes condition are you referring? Type 2 Comments Discharge Order Reason for Visit * Auth/Cert Specialty Diagnoses / Procedures Referred By Roberto gomez Referred To Contact Diagnoses Unstable angina (HCC) CAD (coronary artery disease) Unstable angina (HCC) [I20.0] CAD (coronary artery disease) [I25.10] Procedures CORONARY ANGIOGRAPHY W/LEFT HEART CATH CORONARY ANGIOGRAPHY W/LEFT HEART CATH Huey Barrera MD [address] [place] [address] Crs Waiting Ip [facility] [address] [place] [address] Referral ID Status Reason Start Date Expiration Date Visits Re quested Visits Authorized [id number] Encounter Details Date Type Department Care Team (Late st Contact Info) Description 11/12/2023 8:18 AM EDT - 11/13/2023 5:13 PM EDT Hospital Encounter [facility] 6, [facility] 6th Floor [address] [place] [address] Huey Barrera MD [address] [place] [address] Marcel Vargas MD [address], [place] [id number] Discharge Disposition: Home - Self Care Allergies Active Allergy Reactions Criticality Noted Date Comments Alendronate Sodium 06/24/2012 Burning sensation and difficulty breathing Proton Pump Inhibitors Hives 02/20/2002 nexium documented as of this encounter (statuses as of 11/14/2023) Medications Medication Sig Dispensed Refills Start Date End Date Status INSULIN SYRINGE 30G X 1/2" 0.5 ML MISCIndications:DM type 2, goal A1c below 7 use for injections daily 3 boxes 3 7 Active albuterol (PROAIR HFA) 108 (90 BASE) MCG/ACT inhalerIndications: Bronchitis, complicated Inhale 2 Puffs by mouth 4 times a day. May substitute proventil or ventolin based on formulary 1 Inhaler 1 8 Active Cholecalciferol 25 MCG (1000 UT) Capsule Take 1 Capsule by mouth in the morning. 0 Active Multiple Vitamin (DAILY VALUE MULTIVITAMIN) Tablet Take 1 Tablet by mouth in the morning. 0 Active traZODone HCl 50 MG Oral Tablet (DESYREL)Indication s:Primary insomnia TAKE 1 TABLET BY MOUTH EVERYDAY AT BEDTIME 90 Tab 3 0 Active B-12-SL 1000 MCG Sublingual Tablet Sublingual (Cyanocobalamin)Ind ications:Malaise and fatigue,B12 deficiency Place under the tongue 1,000 mcg daily . 90 Tablet 3 2 Active Toujeo Max SoloStar 300 UNIT/ML Subcutaneous Solution Pen-injector (Insulin Glargine (2 Unit Dial))Indications:D M (diabetes mellitus) type II, controlled, with peripheral vascular disorder (HCC) Inject 60 Units under the skin in the morning and 60 Units in the evening. Patient uses an insulin pump, but it failed this morning. Will get a new one on Sunday. 15 mL 1 3 Active Dexcom G6 Sensor Use as directed. Change every 10 days. Supplied by [employer]: [phone] 0 Active Dexcom G6 Transmitter Use as directed. Change every 90 days. Supplied by [employer]: [phone] 0 Active [email or web address] G6 Professor [employer] Environmental Engineering Device Use as directed. Supplied by [employer]: [phone] 0 Active Fluticasone Propionate 50 MCG/ACT Nasal Suspension (Flonase)Indication s:Chronic rhinitis Administer 2 Sprays into each nostril in the morning. 16 g 1 3 Active Isosorbide Mononitrate ER 60 MG Oral Tablet Extended Release 24 Hour (Imdur) TAKE ONE TABLET BY MOUTH EVERY MORNING 90 Tablet 3 3 12/29/19 24 Active Nitroglycerin 0.3 MG Sublingual Tablet Sublingual (Nitrostat) PLACE 1 TABLET UNDER THE TONGUE EVERY 5 MINUTES UP TO 3 DOSES NEEDED FOR CHEST PAIN. IF NO RELIEF CALL 911 OR GO TO ER 100 Tablet 11 3 11/29/19 24 Active metFORMIN HCl 1000 MG Oral Tablet (Glucophage)Indicat ions:DM type 1 causing neurological disease, not at goal (HCC) TAKE ONE TABLET BY MOUTH TWICE A DAY WITH FOOD 180 Tablet 3 3 12/12/19 24 Active Metoprolol Succinate ER 50 MG Oral Tablet Extended Release 24 Hour (toPROL XL) TAKE ONE TABLET BY MOUTH TWICE A DAY 180 Tablet 3 3 12/12/19 24 Active Sertraline HCl 50 MG Oral Tablet (Zoloft) Take 1.5 Tablets by mouth at bedtime. 135 Tablet 3 3 Active Polyethylene Glycol 3350 17 GM/SCOOP Oral Powder (Miralax)Indication s:Other constipation Mix 1/2 bottle into each of 2 gatorade 32 oz bottles. Drink according to your colonoscopy instructions. 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,Deep vein thrombosis (DVT) (HCC) TAKE ONE TABLET TO ONE AND ONE-HALF TABLET BY MOUTH EVERY DAY DIRECTED BY [facility] 135 Tablet 3 4 09/12/19 25 Active Insulin Aspart 100 UNIT/ML Injection Solution (NovoLOG)Indication s:Type 2 diabetes mellitus with foot ulcer, with long-term current use of insulin ([facility]),DM (diabetes mellitus) type II, controlled, with peripheral vascular disorder ([facility]) FOR USE WITH AN INSULIN PUMP, UP TO 310 UNITS DAILY- dose increase 300 mL 11 4 Active Accu-Chek Guide In Vitro Strip (Glucose Blood)Indications:T ype 2 diabetes mellitus with foot ulcer, with long-term current use of insulin ([facility]),DM (diabetes mellitus) type II, controlled, with peripheral vascular disorder ([facility]) Use to test blood glucose 4 times daily. E11.9 400 Strip 3 4 Active Accu-Chek Guide Me w/Device KitIndications:Type 2 diabetes mellitus with foot ulcer, with long-term current use of insulin ([facility]),DM (diabetes mellitus) type II, controlled, with peripheral vascular disorder ([facility]) Use as directed. 0 4 Active Accu-Chek Softclix LancetsIndications: Type 2 diabetes mellitus with foot ulcer, with long-term current use of insulin ([facility]),DM (diabetes mellitus) type II, controlled, with peripheral vascular disorder ([facility]) Use to test blood glucose 4 times daily. DX: E11.9 400 Each 3 4 Active Aspirin 81 MG Oral Tablet Delayed Release Take 1 Tablet by mouth in the morning. 0 4 Active Rosuvastatin Calcium 20 MG Oral Tablet (Crestor)Indication s:Dyslipidemia, goal LDL below 70 Take 1 Tablet by mouth in the morning. 90 Tablet 3 4 Active B-D ULTRAFINE III (5MM) SHORT PEN MISCIndications:DM type 2, goal A1C 7-8 use as directed with sliding scale 500 Pen 3 2 11/12/19 24 Discontinued INSULIN SYRINGE-NEEDLE U-100 30G X 1/2" 1 ML MISCIndications:DM type 1 causing neurological disease, not at goal (HCC) Use twice per day with lantus inject, and 3 times per day for sliding scale 5 Box 3 2 11/12/19 24 Discontinued Calcium Carbonate Antacid 500 MG chewable tablet Take 1 Tablet by mouth in the morning and 1 Tablet before bedtime. 0 11/12/19 24 Discontinued Ozempic (2 MG/DOSE) 8 MG/3ML Subcutaneous Solution Pen-injector (Semaglutide (2 MG/DOSE)) Inject under the skin. Obtaining from PAP 0 11/12/19 24 Discontinued Digoxin 125 MCG Oral Tablet (Lanoxin)Indication s:Permanent atrial fibrillation (HCC) Take 1 Tablet by mouth in the morning. 90 Tablet 3 4 11/13/19 24 Discontinued Enoxaparin Sodium 80 MG/0.8ML Injection Solution Prefilled Syringe (Lovenox)Indication s:History of DVT (deep vein thrombosis),Chronic atrial fibrillation (HCC),Anticoagulati on management encounter,longterm current use of anticoagulant therapy Inject 80 mg under the skin in the morning and 80 mg before bedtime. Pt requested this be sent to mail order.. 8 mL 0 4 11/12/19 24 Discontinued documented as of this encounter (statuses as of 11/14/2023) Active Problems Problem Noted Date Diagnosed Date Hypotension 11/12/2023 Atrial fibrillation with rapid ventricular respo nse 11/12/2023 Type 2 diabetes mellitus with foot ulcer (CODE) 09/19/2022 Gastro-esophageal reflux disease without esophag itis 03/27/2022 Major depressive disorder, recurrent, unspecifie d 02/10/2021 DM (diabetes mellitus) type II, controlled, with peripheral vascular disorder 12/08/2020 Coronary artery disease of n ative artery of [place] heart with stable angina pectoris 12/08/2020 History of ankle surgery 03/24/2020 History of complete ray ampu tation of first toe of right foot 06/08/2019 Chronic atrial fibrillation 03/25/2019 Diabetic cataract, 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 Cervical spinal stenosis 08/21/2008 longterm current use of anticoagulant therapy 0 05/03/2005 documented as of this encounter (statuses as of 11/14/2023) Resolved Problems Problem Noted Date Diagnosed Date Resolved Date Major depressive disorder, s gwendolyn episode, unspecified 12/08/2020 09/11/2022 Overview: More specified/recent code listed on PL Open wound of left ankle 03/24/202003/2021 Surgical wound breakdown, dumont bsequent encounter 03/24/2020 02/10/2021 Type 2 diabetes mellitus wit h diabetic peripheral angiopathy without gangrene 07/25/2019 1 09/24/2021 Overview: duplicate Current use of insulin 07/25/201902/10 Diabetic foot infection 05/02/201907/07 Cellulitis of right lower extremity 05/02/2019 07/25/2019 Osteomyelitis 05/02/2019 07/25/2019 AF (atrial fibrillation) 02/18/201908/2018 Overview: history History of adenomatous polyp of colon 10/19/2017 10/08/2018 Elevated LFTs 10/19/2017 10/08/2018 DVT (deep venous thrombosis) 03/11/2015 10/19/2017 Carcinoma in situ, breast, ductal 03/02/2015 10/19/2017 Second degree sunburn 02/11/20132016 COPD, severity to be determined 08/30/2012 07/09/2013 Severe obesity with body mas s index (BMI) of 35.0 to 39.9 with serious comorbidity 01/17/2010 Overview: Per Obesity Protocol, #19 ICD-10 update of inactive diagnosis Carpal tunnel syndrome 10/11/200910/19 Type 2 diabetes mellitus wit h hemoglobin A1c goal of less than 7.0% 06/03/2009 02/11/2013 Overview: Per Diabetes Taxonomy. ICD-10 update of inactive term DM TYPE 1 CAUSING NEURO DZ, NOT AT GOAL 06/03/2009 02/19/2018 Overview: Per Diabetes Taxonomy. Dyslipidemia, goal to be determined 06/01/2009 07/15/2009 Overview: Per Lipid Taxonomy. Benign neoplasm of colon 03/16/2009 Overview: adenomatous polyp--repeat 6 months Hypopotassemia 08/22/2008 07/17/2011 Follow-up examination, follo wing other surgery 08/20/2008 07/17/2011 Statin intolerance 05/22/2007 1 DM type 1 causing neurologic al disease, not at goal 05/03/2007 06/03/2009 Overview: Per Diabetes Taxonomy. ADVANCE DIRECTIVE INFORMATION 04/09/2007 10/19/2017 ADVANCE DIRECTIVE INFORMATION 04/09/2007 07/17/2011 Overview: No, Advance Directive brochure given to patient. Other B-complex deficiencies 03/27/2007 10/19/2017 DVT (deep venous thrombosis) 02/20/2002 10/19/2017 Anticoagulation management encounter 02/20/2002 10/19/2017 Myalgia and myositis 01/23/2000 018 Allergic disorder 01/23/2000 07/17/2011 Edema 01/23/2000 10/19/2017 Type 2 diabetes mellitus wit h hemoglobin A1c goal of less than 7.0% 01/23/2000 06/03/2009 Overview: Per Diabetes Taxonomy. ICD-10 update of inactive term Tobacco use disorder 016 documented as of this encounter (statuses as of 11/14/2023) Immunizations Name Administration Dates Next Due COVID-19 mRNA, LNP-s, No Pre serve, 2-Dose Series (Moderna) 10/13/2020,09/15/2020 COVID-19, mRNA, LNP-s, PF, B ooster, 100mcg/0.5mg (Moderna) 07/20/2021 Covid-19, Mrna, Lnp-s, Pf, B ivalent, 30 Mcg, IM, 12 yrs and above (Pfizer) 05/08/2022 Pneumococcal Conjugate Vacc, 13 Valent (Prevnar) 01/20/2016 Pneumococcal Polysaccharide PPV23 (Pneumovax) 01/15/2015,09/18/2006 Season Influenza, Quad, PF, Adjuvanted, 65+ Yrs, IM (FLUAD) 06/18/2020 Seasonal Influenza Virus Vac cine, Unspecified Formulation 05/08/2019,04/09/2018,06/21/2017 Seasonal Influenza, PF, 6 M & above, IM , (FluLaval or Fluzone) 05/08/2019,04/09/2018,06/21/2017 Seasonal Influenza, Quadriva lent Hd (Fluzone Hd) 04/04/2023,05/08/2022 Seasonal Influenza, Quadriva lent, No Preserve, IM 05/20/2015 Seasonal Influenza, Split, I IV3, With Preserve, Inj 06/09/2016,05/22/2014,05/05/2013,04/30,05/22/2011,06/07/2010,07/07/2008 ,05/20/2007,06/07/2006 Seasonal Influenza, Trivalen t, Adjuvanted, 65+ yrs 05/04/2019(Deferred: Patient Refused) TD, Preservative Free 07/15/2008 TDAP (age 10 and older)(Boostrix) 09/15/2014 Varicella Zoster Vaccine (Adult) 02/23/2017 documented as of this encounter Social History Tobacco Use Types Packs/Day Years Used Date Smoking Tobacco: Former Cigarettes 2 36 0 04/19/1979 - 04/19/2015 Smokeless Tobacco: Never Alcohol Use Standard Drinks/Week Comments Not Currently 0 (1 standard drink = 0.6 oz pur e alcohol) PHQ-2 Answer Date Recorded PHQ Adult Total Score 0 01/18/2021 Hunger Vital Sign Answer Date Recorded Worried About Running Out of Food in the Last Ye ar Never true 04/28/2019 Ran Out of Food in the Last Year Never true 04/28/2019 Sex and Gender Information Value Date Recorded Sex Assigned at Female 03/25/2019 10:38 AM EDT Gender Identity Female 03/25/2019 10:38 AM EDT Sexual Orientation Straight 03/25/2019 10 :38 AM EDT Job Start Date Occupation Industry Not on file Not on file Not on file documented as of this encounter Last Filed Vital Signs Vital Sign Reading Time Taken Comments Blood Pressure 113/69 11/13/2023 3:00 PM EDT Pulse 66 11/13/2023 3:00 PM EDT Temperature 35.3 C (95.5 F) 11/13/2023 11:00 AM E DT Respiratory Rate 18 11/13/2023 3:00 PM EDT Oxygen Saturation 96% 11/13/2023 3:00 PM EDT Inhaled Oxygen Concentration - - Weight 85.7 kg (189 lb) 11/12/2023 9:18 AM EDT Height 165.1 cm (5' 5") 11/12/2023 9:18 AM EDT Body Mass Index 31.45 11/12/2023 9:18 AM EDT documented in this encounter Functional Status Functional Status Response Date of Assess ment Are you deaf or do you have serious difficulty h earing? No 05/02/2019 Are you blind or do you have serious difficulty seeing, even when wearing glasses? No 05/02/2019 Do you have serious difficul ty walking or climbing stairs? (5 years old or older) No 05/02/2019 Do you have difficulty dress ing or bathing? (5 years old or older) No 05/02/2019 Because of a physical, menta l, or emotional condition, do you have difficulty doing errands alone such as visiting a doctor s office or shopping? (15 years old or older) No 05/02/20 19 Cognitive Status Response Date of Assessm ent Because of a physical, menta l, or emotional condition, do you have serious difficulty concentrating, remembering, or making decisions? (5 years old or older) No 05/02/2019 documented as of this encounter Discharge Summaries * Valentino Diaz DO - 11/13/2023 4:20 PM EDT [id number] [place] [id number] Admission Date: 11/12/2023 Discharge Date: 11/13/2023 To do for next provider: - Digoxin stopped as patient no longer needs it, has underwent JAKUB with cardioversion now - Cardiology follow up in 1 month - Patient follows with [facility] pharmacy, will be on Lovenox be bridged back to Warfarin, already ordered by [facility] - Endocrinology referral placed for diabetes control Please STOP taking the following medications - Digoxin (lanoxin) 125 mcg oral tablet: You no longer need this medication. Please continue taking all other medications as previously prescribed. 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 Attending Provider: Marcel Vargas MD CONDITION ON DISCHARGE: stable DISPOSITION ON DISCHARGE: home FOLLOW-UP: Future Appointments Appt Date/Time Provider Department 11/14/2023 5:[address] [facility] [place] 11/22/2023 8:[address] [facility] [place] 11/27/2023 9:30 AM Kenny Archibald DPM Podiatry [facility] 12/11/2023 10:00 AM Meggan Guaman CRNP Cardiology, [facility] 12/12/2023 2:[address] [facility] [place] 12/12/2023 2:[address] [facility] [place] 01/03/2024 1:00 PM [facility], Cardiology follow up in 1 month Outpatient testing already scheduled: None Outpatient testing that needs to be arranged: None Inpatient test results pending: None MEDICATIONS ON DISCHARGE: MEDICATION UPDATES AT DISCHARGE CONTINUE taking these medications INSTRUCTIONS Accu-Chek Guide Me w/Device Kit Use as directed. Accu-Chek Guide Strp Generic drug: Glucose Blood Use to test blood glucose 4 times daily. E11.9 Accu-Chek Softclix Lancets Misc Use to test blood glucose 4 times daily. DX: E11.9 albuterol HFA 108 (90 BASE) MCG/ACT inhaler Commonly known as: ProAir HFA Inhale 2 Puffs by mouth 4 times a day. May substitute proventil or ventolin based on formulary aspirin enteric coated 81 MG Tbec Take 1 Tablet by mouth in the morning. B-12-SL 1000 MCG SL Tablet Generic drug: Cyanocobalamin Place under the tongue 1,000 mcg daily . Cholecalciferol 25 MCG (1000 UT) Capsule Take 1 Capsule by mouth in the morning. Daily Value Multivitamin Tablet Take 1 Tablet by mouth in the morning. BAC ON TRAC G6 Professor Of Environmental Engineering January Use as directed. Supplied by [facility] [employer]: [phone] DexAVA.ai G6 Sensor Misc Use as directed. Change every 10 days. Supplied by [facility]: [phone] Dexcom G6 Transmitter Misc Use as directed. Change every 90 days. Supplied by [facility]: [phone] fluticasone 50 MCG/ACT nasal spray Commonly known as: Flonase Administer 2 Sprays into each nostril in the morning. Insulin Syringe 30G X 1/2" 0.5 ML Misc use for injections daily isosorbide mononitrate SA 60 MG Tb24 Commonly known as: Imdur TAKE ONE TABLET BY MOUTH EVERY MORNING MetFORMIN 1000 MG Tablet Commonly known as: Glucophage TAKE ONE TABLET BY MOUTH TWICE A DAY WITH FOOD metoprolol succinate XL 50 MG Tb24 Commonly known as: toPROL XL TAKE ONE TABLET BY MOUTH TWICE A DAY Nitroglycerin 0.3 MG SL tablet Commonly known as: Nitrostat PLACE 1 TABLET UNDER THE TONGUE EVERY 5 MINUTES UP TO 3 DOSES NEEDED FOR CHEST PAIN. IF NO RELIEF CALL 911 OR GO TO ER NovoLOG 100 UNIT/ML injection Generic drug: insulin aspart FOR USE WITH AN INSULIN PUMP, UP TO 310 UNITS DAILY- dose increase Polyethylene Glycol 3350 powder Commonly known as: Miralax Mix 1/2 bottle into each of 2 gatorade 32 oz bottles. Drink according to your colonoscopy instructions. Pregabalin 150 MG Capsule Commonly known as: Lyrica TAKE ONE CAPSULE BY MOUTH TWICE A DAY rosuvastatin 20 MG Tablet Commonly known as: Crestor Take 1 Tablet by mouth in the morning. sertraline 50 MG Tablet Commonly known as: Zoloft Take 1.5 Tablets by mouth at bedtime. Warfarin Sodium 5 MG Tablet Commonly known as: Coumadin Take as directed. If you are unsure how to take this medication, talk to your nurse or doctor. Original instructions: TAKE ONE TABLET TO ONE AND ONE-HALF TABLET BY MOUTH EVERY DAY [facility] STOP taking these medications Digoxin 125 mcg Tablet Commonly known as: Lanoxin CONTINUE taking these medications but follow up with your Primary Care Physician (PCP). INSTRUCTIONS Saima Gudino SoloStar 300 UNIT/ML Sopn Generic drug: Insulin Glargine (2 Unit Dial) Inject 60 Units under the skin in the morning and 60 Units in the evening. Patient uses an insulin pump, but it failed this morning. Will get a new one on Sunday. traZODone 50 MG Tablet Commonly known as: Desyrel TAKE 1 TABLET BY MOUTH EVERYDAY AT BEDTIME ALLERGIES: Alendronate sodium and Proton pump inhibitors INSTRUCTIONS: Activity: as tolerated Diet: heart healthy diet Code Status: Full Code [facility] patient: no ADMISSION HISTORY & PHYSICAL EXAM (focused): HPI: Patient is a 73 year old female with PMHx as stated below who presents after cardiac cath for afib with hypotension. Patient underwent cardiac cath for colicky chest pain for the past year and underwent cardiac cath which revealed [employer] in pRCA, and 30-40% stenosis in proximal LCX. After her procedure, the patient went into afib with rates into 120s and 130s. Blood pressure at the time was 84/55 and continued to be within the 80s/50s with MAP > 65. She is dizzy and lightheaded when she rises in a sitting up position but is asymptomatic when lying down. Patient was given 100 mcg phenylephrine and started on a NSS drip at 100 mL/hr. Her blood pressure did not significantly change. Patient denies any active chest pain or shortness of breath. She denies smoking. She wants her to make decisions for her if she is not able to make them herself. She chooses to be FULL CODE. Vital Signs (Last 24 Hours): Pulse Av.4 Min: 106 Max: 128 No data recorded Most Recent Systolic BP Av mmHg Min: 84 mmHg Max: 100 mmHg Most Recent Diastolic BP Av.8 mmHg Min: 55 mmHg Max: 65 mmHg Resp Av.8 Min: 18 Max: 28 Most Recent Temperature Av.5 C Min: 36.22 C Max: 36.72 C SpO2 Av % Min: 92 % Max: 96 % Intake & Output Summary (Last 24 hours): No intake or output data in the 24 hours ending 11/12/23 1240 Height & Weight: Height: 165.1 cm (5' 5") (11/12/23917) Weight: 85.7 kg (189 lb) (11/12/23917) Weight change: Body mass index is 31.45 kg/m. Physical Examination: General: Patient in no apparent distress. Old appearing. HEENT: normocephalic, atraumatic, pupils reactive to light bilaterally. Heart: regular rate and rhythm; S1 and S2 present; no murmurs, rubs or gallops. Pulmonary: Lungs clear to auscultation bilaterally; no wheezes, rhonchi or crackles. Abdomen: Soft, non-tender, non-distended. Normal bowel sounds and no rebound or guarding. MSK: Patient able to ambulate; Gross motor function intact. Extremities: No pitting edema present at lower extremity bilaterally. Skin: [place], warm, no wounds or lesions present. TR band on right extremity. Neuro: AAOx3. No gross motor or sensory deficits. Vascular: Palpable DP/PT pulses bilaterally . Psych: Appropriate mood and affect. HOSPITAL COURSE (focused): Patient came in for an elective catheterization for a history of chest pain. Her cath did not reveal any blockages that could be stented but her atrial fibrillation became rapid with associated hypotension and dizziness afterward. She underwent JAKUB with Cardioversion withsuccessful results. Patient has had glucose levels that have been difficult to control, and endocrinology referral was placed. She was discharged in stable condition. Day of Discharge Physical Exam BP 113/69 | Pulse 66 | Temp 35.3 C (95.5 F) (Tympanic) | Resp 18 | Ht 1.651 m (5' 5") | Wt 85.7kg (189 lb) | LMP 06/06/2001 | SpO2 96% | BMI 31.45 kg/m | BSA 1.98 m General: Old appearing, frail appearing. HEENT: Sclera white, extraocular muscles intact Cardiovascular: Regular rate and rhythm, S1 and S2 present, no murmurs on auscultation Respiratory: Clear to auscultation bilaterally, no wheezes, rhonchi, crackles Abdomen: Soft, non-tender, non-distended, normal bowel sounds Musculoskeletal: No joint deformity Extremities: No lower extremity edema bilaterally Neuro: Moves all extremities equally, no focal deficits Skin: No rashes, no skin lesions Operations & Procedures: cardiac imaging: transesophageal echo and cardioversion Ace Interpretation (focused): Successful Cardioversion SELECTED RESULTS: Last recorded weight: Weight: 85.7 kg (189 lb) (11/12/23917) Laboratory: CARDIAC: Troponin T (see below for last three most recent values): No results found for: "TROPT" CHEMISTRY: BUN, Creatinine, GFR Estimated, Sodium, Potassium, Chloride, Carbon Dioxide, Glucose, Calcium (see below for most recent value): Lab Results Component Value Date/Time BUN 31 (H) 11/13/2023 04:31 AM BUN 16 06/18/2020 09:03 AM CREAT 1.3 (H) 11/13/2023 04:31 AM CREAT 0.8 06/18/2020 09:03 AM GFRESTIMATED >60.0 06/18/2020 09:03 AM NA 135 11/13/2023 04:31 AM NA 138 06/18/2020 09:03 AM POTASSIUM 3.8 11/13/2023 04:31 AM POTASSIUM 4.6 06/18/2020 09:03 AM CL 99 11/13/2023 04:31 AM CL 98 06/18/2020 09:03 AM CO2 26 11/13/2023 04:31 AM CO2 27 06/18/2020 09:03 AM CA 9.0 11/13/2023 04:31 AM CA 10.4 (H) 06/18/2020 09:03 AM CREATININE: Creatinine (see below for last three most recent values): Lab Results Component Value Date/Time CREAT 1.3 (H) 11/13/2023 04:31 AM CREAT 1.1 (H) 11/12/2023 09:25 AM CREAT 0.8 10/19/2023 10:23 AM CREAT 0.8 06/18/2020 09:03 AM CREAT 0.9 07/25/2019 09:28 AM CREAT 0.7 05/04/2019 06:54 AM BLOOD COUNT: WBC, Hgb, Platelets (see below for most recent value): Lab Results Component Value Date/Time WBC 7.57 11/13/2023 04:31 AM WBC 10.74 06/18/2020 09:03 AM WBC 9.2 07/09/1996 11:15 AM HGB 11.8 (L) 11/13/2023 04:31 AM HGB 13.6 06/18/2020 09:03 AM HGB 14.9 07/09/1996 11:15 AM PLT 141 11/13/2023 04:31 AM PLT 307 06/18/2020 09:03 AM PLT 220 07/09/1996 11:15 AM HEMOGLOBIN: Hgb (see below for last three most recent values): Lab Results Component Value Date/Time HGB 11.8 (L) 11/13/2023 04:31 AM HGB 13.3 11/12/2023 09:25 AM HGB 12.8 10/19/2023 10:23 AM HGB 13.6 06/18/2020 09:03 AM HGB 15.0 07/25/2019 09:28 AM HGB 13.0 05/04/2019 06:54 AM HGB 14.9 07/09/1996 11:15 AM LIVER FUNCTION TEST: Albumin, AST, ASTCMC (resulted at [facility] lab), Alkaline Phosphatase, ALT, ALTCMC (resulted at [facility] lab), Bilirubin Total, TBilCMC (resulted at [facility] lab), Protein - (see below for most recent value of each component): Lab Results Component Value Date/Time AST 48 (H) 10/19/2023 10:23 AM AST 51 (H) 06/18/2020 09:03 AM ALKP 112 10/19/2023 10:23 AM ALKP 107 06/18/2020 09:03 AM ALKP 82 07/09/1996 11:15 AM ALT 27 10/19/2023 10:23 AM ALT 35 06/18/2020 09:03 AM ALT 43 07/09/1996 11:15 AM TBIL 0.5 10/19/2023 10:23 AM TBIL 0.4 06/18/2020 09:03 AM TBIL 0.3 07/09/1996 11:15 AM PROT 7.2 10/19/2023 10:23 AM PROT 7.8 06/18/2020 09:03 AM PROT 7.2 07/09/1996 11:15 AM Complications: none CONSULTS ORDERED: None REFERRING PHYSICIAN: Ref: MEGGAN GUAMAN[[id number]] [address] [place] [address] (office) [phone] (fax) PRIMARY CARE PROVIDER: PCP: Alfa Jaramillo MD [address] [facility] / [place] [address] (office) [phone] (fax) Note: To contact a physician responsible for this patients hospital care, please call [employer] [phone]. Associated attestation - Marcel Vargas MD - 11/13/2023 8:16 PM EDT I saw and evaluated the patient today. I have reviewed the trainee note and agree. Marcel Vargas MD [facility] [address], [facility] 6th Floor [address] [facility] [address] documented in this encounter Discharge Instructions * Discharge Instr - AVS* Valentino Diaz DO - 11/12/2023 12:00 PM EDT Discharge Date: 11/13/2023 You may call your catalytic converter operator during business hours for any questions or test results. For after-hours emergencies call [phone] and have your doctor paged. Scheduling services is available between the hours of 8:00 am and 9:00 pm by calling . For routine questions, your [facility] Cardiology Team prefers the use of Mid[employer]ch. Mid[employer]ch is an online internet tool to help you meet your health care needs quickly by providing a secure, confidential way to view your health records and communicate with your [facility] Cardiology Team. To sign up for [employer] go to [email or web address], "Click" [place] Now on the right side of the screen and complete the user registration information. The information below provides you with the instructions and the list of medications you need to betaking following discharge from the hospital. If you have any questions, please ask before leaving.Please carry this letter with you when you see your doctor in the clinic. If you have questions, you can reach us at the numbers above. Brief summary of your inpatient care: You came to the hospital for an elective procedure to look atyour heart blood vessels to see if they are blocked or not. You did not have any blockages that needed stenting but after your procedure, your heart rate was high and blood pressure became low due toyour atrial fibrillation. You needed to have a shock to get your heart back into a normal rhythm asyou were also dizzy when getting up with this fast heart rate. You underwent the shock with no issues and went back into a normal rhythm after. You are being referred to endocrinology for your diabetes as it is difficult to control and your sugar levels remain persistently high. Your primary diagnosis at discharge was fast heart rate (atrial fibrillation) with symptoms Please STOP taking the following medications - Digoxin (lanoxin) 125 mcg oral tablet: You no longer need this medication. Please continue taking all other medications as previously prescribed. Your doctors during this hospitalization included: Dr. Vargas of the Department of Cardiology Inpatient test results pending: None Operations & Procedures: JAKUB and Cardioversion Complications: none significant Advance Directive Documented: Advance Directive Does the Patient have an Advance Directive? Not Addressed Diet: Heart healthy diet Activity: as tolerated Driving: You may resume driving immediately . Date you may return to work or school: As tolerated Laboratory tests: None Please call your primary care physician (Alfa Jaramillo MD) for an appointment within 1 week(s). Special Instructions: - Aspirin - The preferred dose of aspirin is 81 mg per day (one baby aspirin). Use the non-coated kind. You should continue to take aspirin forever unless specifically told to stop. - Statin Drugs (cholesterol pill) slow the growth of heart artery blockages. Your statin drug is Crestor. - Nitroglycerin (nitro): Your should carry nitro at all times. When chest pain occurs take one nitro under tongue and call 911. You may take additional nitro every five minutes as needed for ongoing chest pain up to three pills. Lie down after using nitro. Do not drive after using nitro. Patients with chronic stable chest pain who frequently use nitro may not need to call 911. Ask your physician about this.. - Beta blockers are important for some cardiac patients and after a heart attack. Your beta blockeris Toprol XL. - Do not use Motrin/Ibuprofen/Advil and other types of "NSAIDs" (nonsteroidal anti-inflammatory drugs) - "NSAIDs" make aspirin ineffective, can raise blood pressure, and can damage your kidneys. Try Tylenol for pain. Consult your pharmacist for questions about "NSAIDs".. Cardiovascular RISK FACTOR control YOUR RISK FACTOR TREATMENT GOALS: Controlling the factors that cause arteries to form blockages will reduce your chance of having new blockages. Work with your health care providers to control your risk factors. If you have trouble reaching these goals then ask your health care provider to work with you further until they are controlled. Diabetes - In diabetics, hemoglobin A1C is a measure of the average blood sugar over the past 3 months. The goal is less than 7.0. Your result is: Hemoglobin AIC Results: Lab Results Component Value Date/Time HEMOGLOBIN A1C - [facility] 10.2 (H) 11/13/2023 04:31 AM HEMOGLOBIN A1C - [facility] 10.2 (H) 08/30/2023 10:08 AM Hypertension - Goal is less than 120/80. Your blood pressure is 108/70. High cholesterol LDL cholesterol (bad cholesterol) - goal is less than 70 mg/dl. HDL cholesterol (good cholesterol) - goal is greater than 40 mg/dl in men and 50 mg/dl in women. Triglycerides (other blood fats that are especially elevated in diabetics and pre-diabetics) - goal is less than 150 mg/dl. Your Lipid Panel Results are: Results for orders placed or performed during the hospital encounter of 11/12/23 LIPID PANEL WITHOUT DIRECT LDL Result Value Ref Range Triglycerides 125 <=174 mg/dL Cholesterol 110 <200 mg/dL HDL Cholesterol 34 (L) >49 mg/dL Non-HDL Cholesterol 76 <=159 mg/dL LDL Cholesterol 51 <=129 mg/dL Results for orders placed or performed in visit on 10/19/23 LIPID PANEL WITH DIRECT LDL IF TG IS HIGH Result Value Ref Range Triglycerides 140 <=174 mg/dL Cholesterol 161 <200 mg/dL HDL Cholesterol 39 (L) >49 mg/dL Non-HDL Cholesterol 122 <=159 mg/dL LDL Cholesterol 94 <=129 mg/dL Tobacco - Tobacco is poison to your arteries. It will cause blockages. Continuing to smoke tobacco may lead to heart attacks, strokes, or leg amputation. You should avoid tobacco. Your goal is to notsmoke at all. Talk with your primary care provider about counseling and medications to help you stop smoking. Exercise - The [place] [employer] recommends walking 30 minutes a day most days of the week; if you have to lose weight you should walk 60-90 minutes a day. Remember that if you develop chestpain, you should stop what you are doing. Do not continue to exercise if you have chest pain. See your special activity instructions above. [place] weight - Your BMI (a measure of ideal body weight) is Body mass index is 31.45 kg/m.. Your BMI should be less than 25. Your waist size also predicts risk of heart attack: a woman's waist should be less than 35 inches and a man's waist less than 40. Maintaining your ideal body weight will help your heart, reduce blood pressure, blood sugar, and cholesterol, improve or help prevent diabetes, and improve or help prevent congestive heart failure. * Pharmacy Instr - AVS* Debbie Russell [facility] - 11/13/2023 2:15 PM EDT Warfarin dosing instructions for after discharge: You should have a prescription for Warfarin 5 mg tablets. Please take the following doses of warfarin by mouth after Discharge: Date Dose using warfarin 5 mg Tablets Sunday 11/12 Take 2 tablets = 10 mg Monday 11/13 Take 1.5 tablets = 7.5 mg 11/14 Resume previous plan: 1 tablet (5 mg) daily Your dose of ENOXAPARIN is 80 mg subcutaneous injection twice daily. You should use this medicationalong with warfarin until you are instructed to stop. The anticoagulation clinic pharmacist will provide you with further dosing and appointment instructions. If you have any questions regarding your anticoagulation therapy, please Contact Anticoagulation Clinic at [phone] or . Please share the following information with your provider: You were continued on WARFARIN and ENOXAPARIN for Atrial fibrillation/flutter, Deep Vein Thrombosis(DVT) acquired prior to this admission. This is an Existing diagnosis. Your Target INR: 2.0 - 3.0 (Prevention of systemic embolism). Your Anticipated Duration of Therapy: Lifetime. Because you have been placed on a blood thinner, your therapy will need to be monitored on a regular basis. You will have your Anticoagulation Managed By: Anticoagulation Clinic . While you were in the hospital, you medication doses received and your corresponding labs were: INR Date/Time Value Ref Range Status 11/13/2023 04:31 AM 1.2 0.8 - 1.2 Final 11/12/2023 09:25 AM 1.2 0.8 - 1.2 Final HGB Date/Time Value Ref Range Status 11/13/2023 04:31 AM 11.8 (L) 12.0 - 15.3 g/dL Final HCT Date/Time Value Ref Range Status 11/13/2023 04:31 AM 36.9 36.0 - 45.2 % Final PLT Date/Time Value Ref Range Status 11/13/2023 04:31 AM 141 140 - 400 K/uL Final Warfarin Administrations (last 720 hours) Date/Time Action Medication Dose 11/12/23 2140 Given Warfarin Sodium (Coumadin) tab 10 mg 10 mg documented in this encounter Progress Notes * Ankur Hairston [facility] - 11/13/2023 2:19 PM EDT Images from the original note were not included. PHARMACY ANTICOAGULATION WARFARIN (Coumadin) Assessment [address] [address] Name: Graciela Mobley Location: [facility]/02E Date: 11/13/2023 Time: 2:19 PM Graciela Mobley is a 73 year old female admitted for Atrial fibrillation with rapid ventricular response (HCC). Pharmacy was consulted for warfarin dosing and monitoring. Anticoagulation Therapy Goals Indication for Anticoagulation: Atrial fibrillation/flutter, Deep Vein Thrombosis (DVT) acquired prior to this admission Other please comment: Hx DVT Anticipated Duration of Therapy: Lifetime Target INR: 2.0-3.0(Prevention of systemic embolism) Risk factors for anticoagulation therapy: Age>65 Prior to Admission Management Anticoagulation Managed By: Anticoagulation Clinic Tablet Size/Strength: 5 mg Anticoagulation Regimen: 5 mg daily (but bridging perioperatively) Anticoagulation Episode Summary Current INR goal: 2.0-3.0 TTR: 77.1% (1 y) Next INR check: 11/22/2023 INR from last check: 2.4 (10/24/2023) Most recent INR: 1.2 (11/13/2023) Weekly max warfarin dose: Target end date: INR check location: [facility] Preferred lab: Send INR reminders to: Indications History of DVT (deep vein thrombosis) (Primary) [Z86.718] Chronic atrial fibrillation (HCC) [I48.20] Comments: recurrent DVT per cardio/heme Anticoagulation Care Providers Provider Role Specialty Phone number Alfa Jaramillo MD Family Medicine [phone] Labs INR Date/Time Value Ref Range Status 11/13/2023 04:31 AM 1.2 0.8 - 1.2 Final 11/12/2023 09:25 AM 1.2 0.8 - 1.2 Final HGB Date/Time Value Ref Range Status 11/13/2023 04:31 AM 11.8 (L) 12.0 - 15.3 g/dL Final HCT Date/Time Value Ref Range Status 11/13/2023 04:31 AM 36.9 36.0 - 45.2 % Final PLT Date/Time Value Ref Range Status 11/13/2023 04:31 AM 141 140 - 400 K/uL Final Objective Warfarin Administrations (last 720 hours) Date/Time Action Medication Dose 11/12/23 2140 Given Warfarin Sodium (Coumadin) tab 10 mg 10 mg Assessment & Plan Assessment Today's INR : Subtherapeutic Does the patient have any medication interactions: Yes Please comment: ASA, therapeutic enoxaparin Are there bleeding concerns with the patient: No Does the patient have any upcoming procedures: No Plan Warfarin Plan: Give Warfarin Specify Warfarin Dose: 10 mg per warfarin clinic instructions Is the patient receiving a Bridging Agent: Yes (Therapeutic enoxaparin) Warfarin Patient Education : Not needed Reason Education Not Needed: YAZAN Hairston RPh * Bib Arrington RP - 11/12/2023 3:35 PM EDT PHARMACY ANTICOAGULATION CONSULT INPATIENT [facility] [address] [place] [address] Name: Graciela Mobley Location: [facility]/ Date: 11/12/2023 Time: 3:35 PM Anticoagulation Therapy Goals: Indication for anticoagulation: Atrial fibrillation/flutter ([id number]) This is an Existing diagnosis Anticipated duration of therapy: Lifetime Target INR: 2.0 - 3.0 (Prevention of systemic embolism) Risk factors for anticoagulation therapy: n/a Prior to admission management: Anticoagulation regimen: 5 mg daily Tablet size/strength: 5 mg Anticoagulation managed by: Corky CARMONA Assessment: Diet: Orders Placed This Encounter Procedures NPO Except Meds No data found. Labs: Lab Results Component Value Date/Time INR 1.2 11/12/2023 09:25 AM INR 2.4 10/24/2023 02:39 PM INR 3.0 09/28/2023 02:40 PM INR 1.7 08/03/2023 10:05 AM INR 2.9 06/18/2023 12:00 AM INR 3.6 08/02/2020 09:11 AM INR 2.6 06/18/2020 08:35 AM INR 2.9 05/07/2020 08:52 AM INR 1.75 (H) 05/04/2019 06:54 AM INR 1.79 (H) 05/02/2019 10:43 AM INR 2.08 (H) 12/14/2017 09:10 AM HGB 13.3 11/12/2023 09:25 AM HGB 12.8 10/19/2023 10:23 AM HGB 14.5 03/20/2022 09:35 AM HGB 13.6 06/18/2020 09:03 AM HGB 15.0 07/25/2019 09:28 AM HGB 13.0 05/04/2019 06:54 AM HGB 14.9 07/09/1996 11:15 AM PLT 205 11/12/2023 09:25 AM PLT 177 10/19/2023 10:23 AM PLT 204 03/20/2022 09:35 AM PLT 307 06/18/2020 09:03 AM PLT 278 07/25/2019 09:28 AM PLT 273 05/04/2019 06:54 AM PLT 220 07/09/1996 11:15 AM Planned upcoming inpatient/outpatient procedures: cardiac cath today, possible JAKUB / DCC Bleeding or other issues requiring modifications to therapy: no Summary of dosing to date: Date Warfarin Dose INR Interacting Medications 11/12/23 10 mg 1.2 N/A Recommendations/Plan: This evenings warfarin dose: 10 MG PT/INR: daily Pharmacy will continue to follow and manage warfarin therapy. Discharge Planning: Patient will be followed by: Anticoagulation clinic Preferred lab: Corky CARMONA Next appointment/lab date: 11-22-23 Patient education completed this admission: no Anticoagulation clinic referral: currently followed by the anticoagulation clinic If you have any additional questions, please contact pharmacy at extension: [phone] documented in this encounter H&P Notes * Valentino Diaz DO - 11/12/2023 12:40 PM EDT Images from the original note were not included. GENERAL HISTORY AND PHYSICAL EXAMINATION - CARDIOLOGY [address] [address] Name: Graciela Mobley Location: CATH/Cath Date: 11/12/2023 Time: 12:40 PM Date of Admission: 11/12/2023 Presenting Problem: Afib HPI: Patient is a 73 year old female with PMHx as stated below who presents after cardiac cath for afib with hypotension. Patient underwent cardiac cath for colicky chest pain for the past year and underwent cardiac cath which revealed [employer] in pRCA, and 30-40% stenosis in proximal LCX. After her procedure, the patient went into afib with rates into 120s and 130s. Blood pressure at the time was 84/55 and continued to be within the 80s/50s with MAP > 65. She is dizzy and lightheaded when she rises in a sitting up position but is asymptomatic when lying down. Patient was given 100 mcg phenylephrine and started on a NSS drip at 100 mL/hr. Her blood pressure did not significantly change. Patient denies any active chest pain or shortness of breath. She denies smoking. She wants her to make decisions for her if she is not able to make them herself. She chooses to be FULL CODE. Subjective PAST MEDICAL HISTORY: Past Medical History: Diagnosis Date Asthma with COPD (chronic obstructive pulmonary disease) Benign neoplasm of colon 03/16/09 adenomatous polyp--repeat 6 months Benign neoplasm of colon 12/09/09 adenomatous polyps repeat 6 months Benign neoplasm of colon 08/08/11 Adenomatous polyp Breast cancer (HCC) 2014 Left breast cancer- invasive ductal carcinoma Carpal tunnel syndrome 10/11/2009 Cervical spinal stenosis 08/21/2008 DM type 2, goal A1c below 7 1989 Dyslipidemia, goal LDL below 100 07/15/2009 Per Lipid Taxonomy. longterm (current) use of anticoagulants Major depressive disorder, single episode, unspecified 12/08/2020 More specified/recent code listed on PL Myalgia and myositis Osteoarthrosis, unspecified whether generalized or localized, lower leg Other B-complex deficiencies Phlebitis and thrombophlebitis of other deep vessels of lower extremities Right leg x 2 PAST SURGICAL HISTORY: Past Surgical History: Procedure Laterality Date ADJACENT TISSUE TRANS >10SQCM TRUNK Left 04/07/2015 ADJACENT TISSUE TRANSFER TRUNK 10.1 TO 30SQ CM performed by Buffy Castro MD at OR [facility] AMPUTATION OF TOE Right 05/02/2019 AMPUTATION TOE METATARSOPHALANGEAL JOINT performed by Kenny Archibald DPM at OR [facility] ARTHROPLASTY KNEE TOTAL Right 05/2016 Dr Reynoso BX LYMPH NODE DEEP AXIL Left 04/07/2015 BIOPSY LYMPH NODE DEEP AXILLARY OPEN performed by Buffy Castro MD at OR [facility] CARPAL TUNNEL SURGERY 10/15/2009 NEUROPLASTY MEDIAN NERVE AT CARPAL TUNNEL performed by CHELSI DICKERSON at OR [facility] CARPAL TUNNEL SURGERY 01/07/2010 NEUROPLASTY MEDIAN NERVE AT CARPAL TUNNEL performed by CHELSI DCIKERSON at OR [facility] COLONOSCOPY 12/09/2009 adenomatous polyps repeat 6 months COLONOSCOPY W/ BIOPSY (RECTUM) 08/08/2011 Adenomatous polyp COLONOSCOPY W/ LESION REMOVAL, SNARE 08/08/2011 snare removal multiple polyps COLONOSCOPY W/ SUBMUCOUS INJ 08/08/2011 ,submucosal injection polyp removal repeat colonoscopy in 6-12 months COLONOSCOPY, DIAGNOSTIC (RECTUM) 01/15/2014 adenomatous polyps, diverticulosis, repeat 2 yrs COLONOSCOPY, DIAGNOSTIC (RECTUM) 02/11/2016 benign polyps, diverticulosis, repeat 2 yrs/COLONOSCOPY FLEXIBLE PROXIMAL DIAGNOSTIC performed by Anselmo Sung MD at ENDOSCOPY [facility] COLONOSCOPY, DIAGNOSTIC (RECTUM) 03/21/2018 adenomatous polyp, diverticulosis, repeat 2 yrs/COLONOSCOPY FLEXIBLE PROXIMAL DIAGNOSTIC performed by Anselmo Sung MD at ENDOSCOPY [facility] COLONOSCOPY, DIAGNOSTIC (RECTUM) 01/15/2014 COLONOSCOPY FLEXIBLE PROXIMAL DIAGNOSTIC performed by Anselmo Sung MD at ENDOSCOPY [facility] COLONOSCOPY, DIAGNOSTIC (RECTUM) 11/16/2020 Hemorrhoids, diverticulosis sigmoid colon, multi polyps / biopsy benign adenomatous polyps / 1 yearrecall / COLONOSCOPY FLEXIBLE PROXIMAL DIAGNOSTIC performed by Anselmo Sung MD at ENDOSCOPY [facility] COLONOSCOPY, DIAGNOSTIC (RECTUM) 09/18/2023 multiple small and large mouthed diverticula/biopsies show adenomatous polyps/recall 10 years/COLONOSCOPY FLEXIBLE PROXIMAL DIAGNOSTIC performed by Anselmo Sung MD at ENDOSCOPY [facility] COLONOSCOPY/REMOVE LESION 03/16/2009 repeat 6 months DILATION AND CURETTAGE (D&C) 1996 D&C ENDO DECOMPRESS SPINAL CORD W/LAMINOTOMY, CERVICAL 07/13/2010 LAMINECTOMY DECOMPRESSION SPINAL CORD POSTERIOR CERVICAL performed by CHELSI DICKERSON at OR [facility] IDENTIFY SENTINEL NODE, RADIOACTIVE TRACER Left 04/07/2015 INJECTION PROCEDURE FOR IDENTIFICATION SENTINEL NODE performed by Buffy Castro MD at OR [facility] KNEE ARTHROSCOPY, DIAGNOSTIC 12/2012 Left knee - mensicus, [place] LIGATE/DIVID & STRIP GSV & LSV Varicose Veins MAMMOGRAM BREAST NEEDLE BIOPSY CORE LEFT Left 02/25/2015 duct carcinoma in situ, grade 2, withfocal necrosis and calcifications MAMMOGRAM BREAST NEEDLE BIOPSY CORE LEFT Left 11/29/2015 A. local sclerosing adenosis with calcifications MAMMOGRAM BREAST NEEDLE BIOPSY CORE LEFT Left 11/29/2015 B. fibroadenomatoid change with calcifications MASTECTOMY, PARTIAL Left 04/07/2015 MASTECTOMY PARTIAL performed by Buffy Castro MD at [facility] NECK SPINE FUSION (CERV, BELOW C2) 08/21/2008 ARTHRODESIS SPINE ANTERIOR CERVICAL performed by CHELSI DICKERSON at [facility] NECK SPINE FUSION (CERV, BELOW C2) 07/13/2010 ARTHRODESIS SPINE POSTERIOR CERVICAL performed by CHELSI DICKERSON at OR [facility] RADIATION THERAPY MANAGEMENT Left 07/10/2015 REMOVE NECK SPINE LAMINA, 1-2 SEGS 07/13/2010 LAMINECTOMY POSTERIOR CERVICAL ONE OR TWO VERTEBRAL SEGMENTS performed by CHELSI DICKERSON at [facility] SENTINEL LYMPH NODE BIOPSY PERFORMED Left 04/07/2015 SPINE SEG FIX, POST, 3-6 SEG, INSERT 07/13/2010 POSTERIOR SPINE SEGMENTAL INSTRUMENTATION 3 TO 6 PSF performed by CHELSI DICKERSON at OR [facility] FAMILY HISTORY: Family History Problem Relation Age of Onset Diabetes Mother Breast Cancer Mother 76 Diabetes Father Heart Disorder Father NH age 34 - age 52 Breast Cancer Grandmother (Maternal) Cancer Sister unknown type Diabetes Brother Diabetes Brother SOCIAL HISTORY: Social History Tobacco Use Smoking status: Former Current packs/day: 0.00 Average packs/day: 2.0 packs/day for 36.0 years (72.0 ttl pk-yrs) Types: Cigarettes Start date: 04/19/1979 Quit date: 04/19/2015 Years since quittin.5 Smokeless tobacco: Never Vaping Use Vaping Use: Never used Substance Use Topics Alcohol use: Not Currently Drug use: No PRIOR TO ADMISSION MEDS: Current Outpatient Medications Medication Instructions Accu-Chek Guide In Vitro Strip (Glucose Blood) Use to test blood glucose 4 times daily. E11.9 Accu-Chek Guide Me w/Device Kit Does Not Apply Accu-Chek Softclix Lancets Use to test blood glucose 4 times daily. DX: E11.9 albuterol (PROAIR HFA) 108 (90 BASE) MCG/ACT inhaler 2 Puffs, Inhalation, QID(AM/NOON/PM/HS), May substitute proventil or ventolin based on formulary aspirin enteric coated 81 mg, Oral, Daily(AM) B-12-SL 1,000 mcg, Sublingual, Daily(AM) Cholecalciferol 1,000 Units, Oral, Daily(AM) Dexcom G6 Professor Of Environmental Engineering Device Does Not Apply, Supplied by [employer]: [phone] Dexcom G6 Sensor Does Not Apply, Change every 10 days. Supplied by [employer]: [phone] Dexcom G6 Transmitter Does Not Apply, Change every 90 days. Supplied by [employer]: [phone] Digoxin (LANOXIN) 125 mcg, Oral, Daily(AM) Fluticasone Propionate 50 MCG/ACT Nasal Suspension (Flonase) 2 Sprays, Each Nostril, Daily(AM) Insulin Aspart 100 UNIT/ML Injection Solution (NovoLOG) FOR USE WITH AN INSULIN PUMP, UP TO 310 UNITS DAILY- dose increase INSULIN SYRINGE 30G X 1/2" 0.5 ML MISC use for injections daily Isosorbide Mononitrate ER 60 MG Oral Tablet Extended Release 24 Hour (Imdur) TAKE ONE TABLET BY MOUTH EVERY MORNING metFORMIN HCl 1000 MG Oral Tablet (Glucophage) TAKE ONE TABLET BY MOUTH TWICE A DAY WITH FOOD Metoprolol Succinate ER 50 MG Oral Tablet Extended Release 24 Hour (toPROL XL) TAKE ONE TABLET BY MOUTH TWICE A DAY Multiple Vitamin (DAILY VALUE MULTIVITAMIN) Tablet 1 Tablet, Oral, Daily(AM) Nitroglycerin 0.3 MG Sublingual Tablet Sublingual (Nitrostat) PLACE 1 TABLET UNDER THE TONGUE EVERY5 MINUTES UP TO 3 DOSES NEEDED FOR CHEST PAIN. IF NO RELIEF CALL 911 OR GO TO ER Polyethylene Glycol 3350 17 GM/SCOOP Oral Powder (Miralax) Mix 1/2 bottle into each of 2 gatorade 32 oz bottles. Drink according to your colonoscopy instructions. Pregabalin 150 MG Oral Capsule (Lyrica) TAKE ONE CAPSULE BY MOUTH TWICE A DAY rosuvastatin (CRESTOR) 20 mg, Oral, Daily(AM) sertraline (ZOLOFT) 75 mg, Oral, HS Toujeo Max SoloStar 60 Units, Subcutaneous, BID (0700,1900), Patient uses an insulin pump, but it failed this morning. Will get a new one on Sunday traZODone HCl 50 MG Oral Tablet (DESYREL) TAKE 1 TABLET BY MOUTH EVERYDAY AT BEDTIME Warfarin Sodium 5 MG Oral Tablet (Coumadin) TAKE ONE TABLET TO ONE AND ONE-HALF TABLET BY MOUTH EVERY DAY DIRECTED BY COUMADIN CLINIC ALLERGIES: Alendronate sodium and Proton pump inhibitors Review of Systems: All systems were reviewed and documented in the HPI, otherwise negative. Objective CONSTITUTIONAL DATA / OBJECTIVE: Vital Signs (Most Recent): Blood Pressure: 85/65 mmHg Last 12H: Most Recent Systolic BP Av mmHg Min: 84 mmHg Max: 100 mmHg Pulse: 128 Last 12H: Pulse Av.4 Min: 106 Max: 128 Temperature: 36.2 C (97.2 F) Last 12H: Most Recent Temperature Av.5 C Min: 36.22 C Max: 36.72 C Respiratory Rate: 23 O2 Saturation: 93 % Vital Signs (Last 24 Hours): Pulse Av.4 Min: 106 Max: 128 No data recorded Most Recent Systolic BP Av mmHg Min: 84 mmHg Max: 100 mmHg Most Recent Diastolic BP Av.8 mmHg Min: 55 mmHg Max: 65 mmHg Resp Av.8 Min: 18 Max: 28 Most Recent Temperature Av.5 C Min: 36.22 C Max: 36.72 C SpO2 Av % Min: 92 % Max: 96 % Intake & Output Summary (Last 24 hours): No intake or output data in the 24 hours ending 11/12/23 1240 Height & Weight: Height: 165.1 cm (5' 5") (11/12/23917) Weight: 85.7 kg (189 lb) (11/12/23917) Weight change: Body mass index is 31.45 kg/m. Physical Examination: General: Patient in no apparent distress. Old appearing. HEENT: normocephalic, atraumatic, pupils reactive to light bilaterally. Heart: regular rate and rhythm; S1 and S2 present; no murmurs, rubs or gallops. Pulmonary: Lungs clear to auscultation bilaterally; no wheezes, rhonchi or crackles. Abdomen: Soft, non-tender, non-distended. Normal bowel sounds and no rebound or guarding. MSK: Patient able to ambulate; Gross motor function intact. Extremities: No pitting edema present at lower extremity bilaterally. Skin: [place], warm, no wounds or lesions present. TR band on right extremity. Neuro: AAOx3. No gross motor or sensory deficits. Vascular: Palpable DP/PT pulses bilaterally . Psych: Appropriate mood and affect. Peripheral Line Left 20 Gauge (Active) Number of days: 0 Laboratory Values: reviewed. -- Brief labs below include the 7 most recent results over the past week. Blood Gas: No results in the last 7 days - inpatent use only Chemistry Panel: Lab results within last 7 days (see chart for full results) Units 11/12/23 0925 Sodium mmol/L 139 Potassium mmol/L 3.7 Chloride mmol/L 100 CO2 mmol/L 25 BUN mg/dL 18 Creatinine mg/dL 1.1* Estimated Glomerular Filtration Rate mL/min 55* Glucose mg/dL 303* Calcium mg/dL 9.7 Phosphorus mg/dL 2.9 Anion Gap mmol/L 14 Complete Blood Count: Lab results within last 7 days (see chart for full results) Units 11/12/23 0925 WBC K/uL 14.13* HGB g/dL 13.3 HCT % 41.0 PLT K/uL 205 MCV fL 92.3 Cardiac Studies: No results in the last 7 days - inpatent use only Coagulation Studies: Lab results within last 7 days (see chart for full results) Units 11/12/23 0925 Prothrombin Time seconds 14.9 INR 1.2 Liver Function Panel: Lab results within last 7 days (see chart for full results) Units 11/12/23 0925 Albumin g/dL 3.8 Infectious Studies: No results in the last 7 days - inpatent use only Cultures: reviewed. No results in the last 7 days - inpatent use only Recent Cultures (2 Weeks) 05/02/2019 04/28/2019 02/10/2019 04/28/2016 4:28 PM 10:50 AM 1:54 PM 10:50 AM SPECIMEN DESCRIPTION DEEP WOUND RT GREAT TOE SUPERFICIAL WOUND RIGHT FOOT SUPERFICIAL WOUND RIGTH AXILLA CLEAN CATCH URINE CULTURE FEW STAPHYLOCOCCUS AUREUS MRSA-THIS PATIENT MAY REQUIRE ISOLATION. MODERATE STAPHYLOCOCCUS AUREUS MRSA-THIS PATIENT MAY REQUIRE ISOLATION. MANY STAPHYLOCOCCUS AUREUS MRSA-THIS PATIENT MAY REQUIRE ISOLATION. MULTIPLE HAIDER SUGGESTS CONTAMINATION OR COLONIZATION TWO COLONIES NORMAL HAIDER NO ANAEROBIC GROWTH Radiographic Studies (last 72 hours): reviewed. No imaging results in the last 72 hours Cardiac catheterization 11/12/23 Coronary disease - hemodynamically significant There is a chronic total occlusion (INSTITUTE SCIENTIST) of proximal RCA with L-R collaterals There is 30-40% stenosis in proximal Lcx with mild luminal irregularities in the left circulation S/p R Radial access with 5Fr short sheath due to radial A calcifications Assessment & Plan Assessment and Plan: Active Problems: * No active hospital problems. * POA = Present On Admission Graciela Mobley is a 73 year old female with PMHx as mentioned above who presents for afib and hypotension after cardiac cath. Afib w/ RVR Hypotension Patient warrants cardioversion for her procedure as she seems to be symptomatic from her afib with RVR. Tentative plan for JAKUB with cardioversion today C/w NSS solution for now for blood pressure LINES / DRAINS / TUBES: LINES ALL Duration Peripheral Line Left 20 Gauge <1 day List of services consulted/following: None Patient discussed with Material Handler [address] Shift Dr. Preet Figueroa and will be seen and examined by attending physician, MD Valentino Causey, Resident Physician This chart was completed in part utilizing [employer] Speech Voice Recognition Software. Grammatical errors, random word insertions, pronoun errors, and incomplete sentences are an occasional consequence of this system due to software limitations, ambient noise, and hardware issues. Any formal questions or concerns about the content, text, or information contained within the body of this dictation should be directly addressed to the provider for clarification. Associated attestation - Marcel Vargas MD - 11/12/2023 2:41 PM EDT I saw and evaluated the patient today. I have reviewed the trainee note and agree. Marcel Vargas MD CRS Extend [facility], Cardiac Recovery Suite Extended Unit, [address] [facility] [address] * Marilin Quezada CRNP - 11/12/2023 8:57 AM EDT HISTORY & PHYSICAL INTERVAL NOTE - Cardiology Service [facility]-[address] [id number] History and Physical Update: Name: Graciela Mobley Location: CATH/Cath Date: 11/12/2023 Time: 8:57 AM DATE OF HISTORY AND PHYSICAL: 11/12/2023 REFERRED BY: PIPER Topete Chief Complaint: Worsening Angina I have reviewed the H&P previously performed and examined the patient today. There are no new findings noted. Physical Examination: BP: 84 mmHg/55 mmHg (11/12/23929) Pulse: 110 (11/12/23929) Temp: 36.72 C (11/12/23929) Temp Summary: Temp Min: 36.7 C (98.1 F) Max: 36.7 C (98.1 F) SpO2: 93 % (11/12/23929) O2 flow rate: Supplemental O2 Delivery: Room Air, None (11/12/23929) Cardiac: normal rate, no murmur, no gallop, no rub, intact distal pulses, (+) irregularly irregular Lungs: normal respiratory effort, lungs clear to auscultation and percussion Right Radial pulse 2+ Left Radial pulse 2+ Allens test normal Right Femoral pulse 2+ Right Femoral Bruit no Right DP pulse 2+ Left Femoral pulse 2+ Left Femoral Bruit no Left DP pulse 2+ IV Contrast Allergy: no Contraindications to dual anti-platelet therapy: No History of anemia: No ASA: Received typical daily dose Anticoagulation: Yes - Warfarin ; Last dose 5 days earlier. Lovenox [place], Last injection 11/11/2023. Labs reviewed as indicated below: Latest Reference Range & Units 11/12/23 09:25 Sodium 135 - 146 mmol/L 139 Potassium 3.5 - 5.1 mmol/L 3.7 Chloride 98 - 107 mmol/L 100 CO2 22 - 32 mmol/L 25 BUN 6 - 20 mg/dL 18 Creatinine 0.5 - 1.0 mg/dL 1.1 (H) Estimated Glomerular Filtration Rate >=60 mL/min 55 (L) Anion Gap 7 - 15 mmol/L 14 Glucose 70 - 120 mg/dL 303 (H) Calcium 8.4 - 10.2 mg/dL 9.7 Phosphorus 2.5 - 4.8 mg/dL 2.9 INR 0.8 - 1.2 1.2 Prothrombin Time 11.6 - 15.2 seconds 14.9 CBC Rpt ! WBC 4.00 - 10.80 K/uL 14.13 (H) RBC 3.85 - 5.15 M/uL 4.44 HGB 12.0 - 15.3 g/dL 13.3 HCT 36.0 - 45.2 % 41.0 MCV 81.5 - 97.5 fL 92.3 MCH 27.0 - 34.0 pg 30.0 MCHC 32.0 - 36.0 g/dL 32.4 RDW 11.5 - 15.5 % 16.0 PLT 140 - 400 K/uL 205 MPV 6.6 - 11.1 fL 11.7 Albumin 3.8 - 5.0 g/dL 3.8 * Maria D Crow CRNP - 11/09/2023 11:52 AM EDT Note copied and pasted from clinic visit on 10/19/23 by Meggan WIN. Cardiology Outpatient Visit 10/19/2023 Primary Hand Violin Maker: Dr. Arizmendi Past medical history: Permanent atrial fibrillation--on metoprolol and digoxin. Intolerance to higher doses of beta-adis due to COPD [id number] score of 5 (age 1, female, HTN, CAD)--on Coumadin Presumed coronary artery disease Abnormal nuclear stress, 2018-- medically managed, no history of catheterization or PCI Hypertension Mild aortic stenosis COPD History of DVTs Diabetes HPI Medically complex 73-year-old female presenting to the cardiology office today in routine follow-up. Was last evaluated by AUDELIA Kim approximately 5 months ago. Today the patient presents with acute concerns. Has a longstanding history of chest pain relieved with nitroglycerin. She was doing well up until 2 days ago. She was out walking after eating lunch and developed chest pain, nausea, and then vomited. She felt shaky and short of breath. Took sublingual nitroglycerin which improved symptoms. Notes that over the last year so she has been more short ofbreath and fatigued. Functional capacity has significantly declined. She has been utilizing her electric wheelchair more often. Denies lightheadedness or dizziness. No orthopnea or PND. No lower extremity edema. No fever, chills, cough, hematochezia, melena, or hemoptysis. Carries a history of presumed coronary artery disease with abnormal nuclear stress test dating backto 2019. At this time does were medically managed and no cardiac catheterization was recommended. Patient is compliant with all medications, and offers no side effects. EKG showing atrial fibrillation with abnormal T-waves in lateral leads, unchanged from previous echo dated 05/2023. Current Medications Current Outpatient Medications Medication Sig Dispense Refill INSULIN SYRINGE 30G X 1/2" 0.5 ML MISC use for injections daily 3 boxes 3 Multiple Vitamin (DAILY VALUE MULTIVITAMIN) Tablet Take 1 Tablet by mouth in the morning. traZODone HCl 50 MG Oral Tablet (DESYREL) TAKE 1 TABLET BY MOUTH EVERYDAY AT BEDTIME 90 Tab 3 B-12-SL 1000 MCG Sublingual Tablet Sublingual (Cyanocobalamin) Place under the tongue 1,000 mcg daily . 90 Tablet 3 Toujeo Max SoloStar 300 UNIT/ML Subcutaneous Solution Pen-injector (Insulin Glargine (2 Unit Dial))Inject 60 Units under the skin in the morning and 60 Units in the evening. Patient uses an insulin pump, but it failed this morning. Will get a new one on Sunday. 15 mL 1 Fluticasone Propionate 50 MCG/ACT Nasal Suspension (Flonase) Administer 2 Sprays into each nostril in the morning. 16 g 1 Isosorbide Mononitrate ER 60 MG Oral Tablet Extended Release 24 Hour (Imdur) TAKE ONE TABLET BY MOUTH EVERY MORNING 90 Tablet 3 Nitroglycerin 0.3 MG Sublingual Tablet Sublingual (Nitrostat) PLACE 1 TABLET UNDER THE TONGUE EVERY5 MINUTES UP TO 3 DOSES NEEDED FOR CHEST PAIN. IF NO RELIEF CALL 911 OR GO TO ER 100 Tablet 11 Pravastatin Sodium 20 MG Oral Tablet (Pravachol) TAKE ONE TABLET BY MOUTH EVERY EVENING 90 Tablet 3 metFORMIN HCl 1000 MG Oral Tablet (Glucophage) TAKE ONE TABLET BY MOUTH TWICE A DAY WITH FOOD 180 Tablet 3 Metoprolol Succinate ER 50 MG Oral Tablet Extended Release 24 Hour (toPROL XL) TAKE ONE TABLET BY MOUTH TWICE A DAY 180 Tablet 3 Ozempic (2 MG/DOSE) 8 MG/3ML Subcutaneous Solution Pen-injector (Semaglutide (2 MG/DOSE)) Inject under the skin. Obtaining from PAP Sertraline HCl 50 MG Oral Tablet (Zoloft) Take 1.5 Tablets by mouth at bedtime. 135 Tablet 3 Polyethylene Glycol 3350 17 GM/SCOOP Oral Powder (Miralax) Mix 1/2 bottle into each of 2 gatorade 32 oz bottles. Drink according to your colonoscopy instructions. 255 g 0 Digoxin 250 MCG Oral Tablet (Lanoxin) Take 1 Tablet by mouth in the morning. 90 Tablet 5 Pregabalin 150 MG Oral Capsule (Lyrica) TAKE ONE CAPSULE BY MOUTH TWICE A DAY 180 Capsule 1 Warfarin Sodium 5 MG Oral Tablet (Coumadin) TAKE ONE TABLET TO ONE AND ONE-HALF TABLET BY MOUTH EVERY DAY DIRECTED BY COUMADIN CLINIC 135 Tablet 3 Insulin Aspart 100 UNIT/ML Injection Solution (NovoLOG) FOR USE WITH AN INSULIN PUMP, UP TO 310 UNITS DAILY- dose increase 300 mL 11 Accu-Chek Guide In Vitro Strip (Glucose Blood) Use to test blood glucose 4 times daily. E11.9 400 Strip 3 Accu-Chek Guide Me w/Device Kit Use as directed. Accu-Chek Softclix Lancets Use to test blood glucose 4 times daily. DX: E11.9 400 Each 3 Aspirin 81 MG Oral Tablet Delayed Release Take 1 Tablet by mouth in the morning. B-D ULTRAFINE III (5MM) SHORT PEN MISC use as directed with sliding scale (Patient not taking: Reported on 10/19/2023) 500 Pen 3 INSULIN SYRINGE-NEEDLE U-100 30G X 1/2" 1 ML MISC Use twice per day with lantus inject, and 3 timesper day for sliding scale (Patient not taking: Reported on 10/19/2023) 5 Box 3 albuterol (PROAIR HFA) 108 (90 BASE) MCG/ACT inhaler Inhale 2 Puffs by mouth 4 times a day. May substitute proventil or ventolin based on formulary 1 Inhaler 1 Calcium Carbonate Antacid 500 MG chewable tablet Take 1 Tablet by mouth in the morning and 1 Tabletbefore bedtime. (Patient not taking: Reported on 09/12/2023) Cholecalciferol 25 MCG (1000 UT) Capsule Take 1 Capsule by mouth in the morning. Dexcom G6 Sensor Use as directed. Change every 10 days. Supplied by [employer]: [phone] Dexcom G6 Transmitter Use as directed. Change every 90 days. Supplied by [employer]: [phone] Dexcom G6 Professor Of Environmental Engineering Device Use as directed. Supplied by [employer]: [phone] No current facility-administered medications for this visit. Past Medical History Past Medical History: Diagnosis Date Asthma with COPD (chronic obstructive pulmonary disease) Benign neoplasm of colon 03/16/09 adenomatous polyp--repeat 6 months Benign neoplasm of colon 12/09/09 adenomatous polyps repeat 6 months Benign neoplasm of colon 08/08/11 Adenomatous polyp Breast cancer (HCC) 2014 Left breast cancer- invasive ductal carcinoma Carpal tunnel syndrome 10/11/2009 Cervical spinal stenosis 08/21/2008 DM type 2, goal A1c below 7 1989 Dyslipidemia, goal LDL below 100 07/15/2009 Per Lipid Taxonomy. 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 Major depressive disorder, single episode, unspecified 12/08/2020 More specified/recent code listed on PL Myalgia and myositis Osteoarthrosis, unspecified whether generalized or localized, lower leg Other B-complex deficiencies Phlebitis and thrombophlebitis of other deep vessels of lower extremities Right leg x 2 Past Surgical History Past Surgical History: Procedure Laterality Date ADJACENT TISSUE TRANS >10SQCM TRUNK Left 04/07/2015 ADJACENT TISSUE TRANSFER TRUNK 10.1 TO 30SQ CM performed by Buffy Castro MD at OR [facility] AMPUTATION OF TOE Right 05/02/2019 AMPUTATION TOE METATARSOPHALANGEAL JOINT performed by Kenny Archibald DPM at OR [facility] ARTHROPLASTY KNEE TOTAL Right 05/2016 Dr Reynoso BX LYMPH NODE DEEP AXIL Left 04/07/2015 BIOPSY LYMPH NODE DEEP AXILLARY OPEN performed by Buffy Castro MD at OR [facility] CARPAL TUNNEL SURGERY 10/15/2009 NEUROPLASTY MEDIAN NERVE AT CARPAL TUNNEL performed by CHELSI DICKERSON at OR [facility] CARPAL TUNNEL SURGERY 01/07/2010 NEUROPLASTY MEDIAN NERVE AT CARPAL TUNNEL performed by CHELSI DICKERSON at OR [facility] COLONOSCOPY 12/09/2009 adenomatous polyps repeat 6 months COLONOSCOPY W/ BIOPSY (RECTUM) 08/08/2011 Adenomatous polyp COLONOSCOPY W/ LESION REMOVAL, SNARE 08/08/2011 snare removal multiple polyps COLONOSCOPY W/ SUBMUCOUS INJ 08/08/2011 ,submucosal injection polyp removal repeat colonoscopy in 6-12 months COLONOSCOPY, DIAGNOSTIC (RECTUM) 01/15/2014 adenomatous polyps, diverticulosis, repeat 2 yrs COLONOSCOPY, DIAGNOSTIC (RECTUM) 02/11/2016 benign polyps, diverticulosis, repeat 2 yrs/COLONOSCOPY FLEXIBLE PROXIMAL DIAGNOSTIC performed by Anselmo Sung MD at ENDOSCOPY [facility] COLONOSCOPY, DIAGNOSTIC (RECTUM) 03/21/2018 adenomatous polyp, diverticulosis, repeat 2 yrs/COLONOSCOPY FLEXIBLE PROXIMAL DIAGNOSTIC performed by Anselmo Sung MD at ENDOSCOPY [facility] COLONOSCOPY, DIAGNOSTIC (RECTUM) 01/15/2014 COLONOSCOPY FLEXIBLE PROXIMAL DIAGNOSTIC performed by Anselmo Sung MD at ENDOSCOPY [facility] COLONOSCOPY, DIAGNOSTIC (RECTUM) 11/16/2020 Hemorrhoids, diverticulosis sigmoid colon, multi polyps / biopsy benign adenomatous polyps / 1 yearrecall / COLONOSCOPY FLEXIBLE PROXIMAL DIAGNOSTIC performed by Anselmo Sung MD at ENDOSCOPY [facility] COLONOSCOPY, DIAGNOSTIC (RECTUM) 09/18/2023 multiple small and large mouthed diverticula/biopsies show adenomatous polyps/recall 10 years/COLONOSCOPY FLEXIBLE PROXIMAL DIAGNOSTIC performed by Anselmo Sung MD at ENDOSCOPY [facility] COLONOSCOPY/REMOVE LESION 03/16/2009 repeat 6 months DILATION AND CURETTAGE (D&C) 1996 D&C ENDO DECOMPRESS SPINAL CORD W/LAMINOTOMY, CERVICAL 07/13/2010 LAMINECTOMY DECOMPRESSION SPINAL CORD POSTERIOR CERVICAL performed by CHELSI DICKERSON at OR [facility] IDENTIFY SENTINEL NODE, RADIOACTIVE TRACER Left 04/07/2015 INJECTION PROCEDURE FOR IDENTIFICATION SENTINEL NODE performed by Buffy Castro MD at OR [facility] KNEE ARTHROSCOPY, DIAGNOSTIC 12/2012 Left knee - mensicus, [place] LIGATE/DIVID & STRIP GSV & LSV Varicose Veins MAMMOGRAM BREAST NEEDLE BIOPSY CORE LEFT Left 02/25/2015 duct carcinoma in situ, grade 2, withfocal necrosis and calcifications MAMMOGRAM BREAST NEEDLE BIOPSY CORE LEFT Left 11/29/2015 A. local sclerosing adenosis with calcifications MAMMOGRAM BREAST NEEDLE BIOPSY CORE LEFT Left 11/29/2015 B. fibroadenomatoid change with calcifications MASTECTOMY, PARTIAL Left 04/07/2015 MASTECTOMY PARTIAL performed by Buffy Castro MD at OR [facility] NECK SPINE FUSION (CERV, BELOW C2) 08/21/2008 ARTHRODESIS SPINE ANTERIOR CERVICAL performed by HCELSI DICKERSON at [facility] NECK SPINE FUSION (CERV, BELOW C2) 07/13/2010 ARTHRODESIS SPINE POSTERIOR CERVICAL performed by CHELSI DICKERSON at OR [facility] RADIATION THERAPY MANAGEMENT Left 07/10/2015 REMOVE NECK SPINE LAMINA, 1-2 SEGS 07/13/2010 LAMINECTOMY POSTERIOR CERVICAL ONE OR TWO VERTEBRAL SEGMENTS performed by CHELSI DICKERSON at OR [facility] SENTINEL LYMPH NODE BIOPSY PERFORMED Left 04/07/2015 SPINE SEG FIX, POST, 3-6 SEG, INSERT 07/13/2010 POSTERIOR SPINE SEGMENTAL INSTRUMENTATION 3 TO 6 PSF performed by CHELSI DICKERSON at OR [facility] Social History Social History Tobacco Use Smoking status: Former Current packs/day: 0.00 Average packs/day: 2.0 packs/day for 36.0 years (72.0 ttl pk-yrs) Types: Cigarettes Start date: 04/19/1979 Quit date: 04/19/2015 Years since quittin.5 Smokeless tobacco: Never Vaping Use Vaping Use: Never used Substance Use Topics Alcohol use: Not Currently Drug use: No Allergies Review of patient's allergies indicates: Allergen Reactions Alendronate Sodium Burning sensation and difficulty breathing Proton Pump Inhibitors Hives nexium Review of Systems: See HPI for pertinent positives. All others negative, other than those noted in HPI. Physical Exam: BP 106/62 | Pulse 76 | Resp 16 | Wt 86 kg (189 lb 8 oz) | LMP 06/06/2001 | BMI 31.53 kg/m | BSA 1.99 m General: No acute distress. A+Ox3. HEENT: Normocephalic. Atraumatic. Conjunctiva and sclera clear. NECK: No carotid bruits. No JVD. Carotid upstrokes are brisk. Heart: RRR. S1 and S2 noted. +2/6 systolic murmur Lungs: Clear to auscultation. No wheezes, rhonchi, rales. Abdomen: Normal bowel sounds. Soft. Nontender. No masses or organomegaly. No abdominal bruits. Extremities: No edema. No clubbing or cyanosis. Pulses: radial=2/4, posterior tibial=2/4, dorsalis pedis = 2/4. NEURO: No focal deficits. PSYCH: Normal. Lab data/imaging study review: Echo 08/2021 The primary indication after review was deemed appropriate and the examination was performed. Normal LV chamber size with mild concentric LVH. Normal LV systolic function without regional wall motion abnormalities. Calculated LV ejection Fraction = 58% (bi-plane method of discs). Moderately calcified aortic valve with mild aortic stenosis. Mild mitral regurgitation. Mild tricuspid regurgitation. Severe left atrial enlargement. Nuclear stress 12/2018 Lexiscan nuclear stress test is positive for a small area of reversible ischemia involving the apical lateral wall. Gated SPECT images reveals normal myocardial thickening and wall motion. The LV ejection fraction is calculated at 62%. Impression/Plan: This is a 73 year old female who is being evaluated in the cardiology office for ongoing care/risk management for the below diagnoses. 1. Permanent atrial fibrillation (HCC) -Permanent atrial fibrillation--on metoprolol and digoxin. Intolerance to higher doses of beta-adis due to COPD -[id number] score of 5 (age 1, female, HTN, CAD) Continue metoprolol and digoxin as ordered. Dig level ordered for assessment. Continue Coumadin, INR goal between 2-3. 2. Coronary artery disease of [place] artery of [place] heart with stable angina pectoris (HCC) -Presumed coronary artery disease with worsening chest pain, GARCIA, and function capacity. -Abnormal nuclear stress, 2019-- medically managed, no history of catheterization or PCI -EKG today showing atrial fibrillation ST abnormalities in lateral leads. -Further ischemic evaluation is warranted at this time. The risks of cardiac catheterization was described in detail including but not limited to bleeding, infection, vascular injury, kidney damage, heart attack, stroke, and need for emergency open heart surgery. -Patient agreeable with moving forward. Patient prefers catheterization to be done at [facility]. Scheduled for 11/12/2023. Patient aware that a airport shuttle driver to her cardiac cath is required. All appropriate preoperative cardiac catheterization testing ordered including a CBC, CMP, lipid panel, PTT/PT INR, and CXR Start Aspirin 81 mg daily Continue metoprolol succinate 50 mg twice daily and Imdur 60 mg daily For now continue pravastatin, will likely need to transition to rosuvastatin. No allergies to contrast dye Not on any phosphodiesterase (PDE) inhibitors Hold Metformin 2 days prior to cath Hold Ozempic 7 days prior to cath Hold coumadin x5 days-- will bridge with Lovenox given hx of recurrent DVT and low mobility of the patient. AC clinic aware. Refrain from NSAID use. The use of sublingual nitroglycerin and when to call 911 was described to patient in detail. Echo ordered to reassess LV systolic function, wall motion and aortic valve gradients given historyof mild per echo 2021. 3. Mild aortic stenosis Mild per echo, 2021 1. Repeat resting echo to reassess AV gradients 4. HTN, goal below 130/80 Well controlled below goal. 5. Dyslipidemia, goal LDL below 70 LDL uncontrolled, 83 (12/2022) Repeat fasting cholesterol panel in the near future. Consider transitioning from pravastatin to rosuvastatin. The patient agrees to the above plan and will call with additional questions or concerns. ER with all emergencies advised. Follow-up: Return in about 6 weeks (around 11/30/2023). | Check-out note: Labs and CXR today. Schedule echo-- needs done prior to Cath. Follow up after cath. I spent a total of 40 minutes on the date of service in preparation, delivery, and documentation ofthe care provided to Graciela Mobley excluding any time spent in the performance of separately billed services. AUDELIA Ware [facility], Department of Cardiology This chart was completed in part utilizing [employer] Speech Voice Recognition Software. Grammatical errors, random word insertions, prounoun errors, and incomplete sentences are an occasional consequence of this system due to software limitations, ambient noise, and hardware issues. 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 Barrera Cherry Sorter(s): Dr. Miller, Dr. Rg Anesthesia: None Additional Findings: Coronary disease - hemodynamically significant There is a chronic total occlusion (INSTITUTE SCIENTIST) of proximal RCA with L-R collaterals There is 30-40% stenosis in proximal Lcx with mild luminal irregularities in the left circulation S/p R Radial access with 5Fr short sheath due to radial A calcifications Complications: none Condition of patient: Good Post Sedation Evaluation: Cardiovascular status: acceptable Level of consciousness: awake and alert Airway patency: patent Distress - NAD Hydration status - well hydrated Nausea/vomiting - not present Recommendations: Optimize medical management for CAD, and continue lifestyle modifications for cardiovascular risk factors. documented in this encounter Miscellaneous Notes * Communication - Valentino Diaz DO - 11/13/2023 3:23 PM EDT Post-OP check Subjective: Patient doing well after JAKUB and Cardioversion. She has no complaints and feels well. Objective: BP 113/69 | Pulse 66 | Temp 35.3 C (95.5 F) (Tympanic) | Resp 18 | Ht 1.651 m (5' 5") | Wt 85.7kg (189 lb) | LMP 06/06/2001 | SpO2 96% | BMI 31.45 kg/m | BSA 1.98 m Physical examination: General: Well appearing, in no acute distress HEENT: Atraumatic, normocephalic, non-icteric sclera, moist mucous membranes Neurologic: Alert and oriented, no focal deficits, following commands, appropriate responses to questions, CN grossly intact, power equal and normal in UL and LL bilaterally Neck: No JVD, no submental, submandibular, or cervical lymphadenopathy CVS: RRR, normal S1 and S2, no murmurs, rubs, or gallops Respiratory: Normal effort, breath sounds normal and equal bilaterally, no crackles, no rales Abdominal: Soft, nondistended, nontender, normoactive bowel sounds Extremities: No edema, peripheral pulses are regular and equal Skin: Warm, dry, intact OR: Successful JAKUB and cardioversion Assessment and Plan: - Discharge today Valentino Diaz DO Internal Medicine Resident * Pre-Sedation Assessment - Kevin Rojo DO - 11/13/2023 12:49 PM EDT PRE-SEDATION ASSESSMENT PRE-SEDATION ASSESSMENT: Jakub Dccv Level of sedation planned: Moderate H&P Review / Interval Note Documentation: I have reviewed the H&P previously performed, examined the patient today, and there are no new findings. Difficulty with sedation / anesthesia: No Sleep apnea: No History of snoring: Yes History of difficult intubation: No Decreased ROM neck flexion/extension: No Tracheal deviation: No Decreased ability to open mouth / TMJ: No Loose teeth / dentures / partial: Yes Congenital deformities / abnormalities: No Dysphagia: No Mallampati Classification: II - soft palate, uvula, fauces visible Chest: Clear Heart: Irregular Rhythm ASA Risk Stratification (Select One): ASA 2 - Mild systemic disease, no functional limitations The patient was identified and the procedure verified: Yes The patient was reevaluated immediately prior to the sedation: 11/13/2023 12:50 PM * Ancillary Progress Note - Juliette Fried RCIS - 11/12/2023 11:14 AM EDT [facility]-[address] [id number] Ancillary Progress Note Patient Name: Graciela Mobley Date: 11/12/2023 Patient will be escorted to [facility]Cardiac Recovery [facility]. We performed a diagnostic cardiac catheterization procedure on this patient. The right radial artery was used for access with a 6 Thai sheath. A Radial Band was applied at 10 mL. of air to close the site. There is no hematoma and no ooze from the cath site noted. No sterile dressing applied to site. Radial band applied. Distal pulses were palpated and instructions to patient were given. There were no complications during the case. Pleasesee the MAR for the medications that were given. See Cath Procedure Log for patient vitals during the case. * Communication - Huey Barrera MD - 11/12/2023 10:21 AM EDT INFORMED CONSENT FOR CARDIAC CATH AND INTERVENTIONAL PROCEDURES: I discussed with patient the alternatives to cardiac cath including medical therapy and if appropriate exercise testing. I discussed the risks of cath including 10/999 , NH, CVA and 2/100 risk of allergic reaction, bleeding, infection, arrhythmia requiring shock, damage to artery requiring surgery or amputation, radiation skin huntley. I discussed technique of catheterization. The patient indicated understanding and a preference for proceeding with catheterization considering these factors. I discussed with the patient coronary intervention and alternatives including bypass surgery and medical therapy. I discussed the risks of intervention including 5-10% risk of NH, 5% risk of bleeding possibly requiring transfusion, 1% risk of , 1% risk of emergency CABG, and 20- 30% risk of restenosis, and the chance that even a successful procedure will not relieve symptoms if they are not due to cardiac ischemia. The patient would like to have ad hoc intervention done at the time of the ca theterization if it seems appropriate. documented in this encounter Plan of Treatment Upcoming Encounters Date Type Department Care Team (Late st Contact Info) Description 11/14/2023 5:10 PM EDT Anticoagulation Pharmacy, [place] [address] [facility] [place] [address] [facility] [address] [place] [facility] [place] [address] 11/22/2023 8:20 AM EDT Anticoagulation Pharmacy, [place] [address] [facility], [place] [address] [place] [address] [place] [facility] [place] [address] 11/27/2023 9:30 AM EDT Office Visit Podiatry [address] [place] [address] Kenny Archibald, [facility] [address] [place] [address] 12/11/2023 10:00 AM EDT Office Visit Cardiology, [facility] [address] [facility] [place] [address] Meggan Guaman CRNP [address] [facility] [place] [address] 12/12/2023 2:30 PM EDT Anticoagulation Pharmacy, [place] [address] [facility], [place] [address] [facility] [address] [place] [facility] [place] [address] 12/12/2023 2:40 PM EDT Office Visit Pharmacy, [place] [address] [place] [address] [place], [facility] [address] [place] [facility] [place] [address] 01/03/2024 1:00 PM EDT Office Visit Family Practice, [place] [address] [facility] [id number] Natalia Heller PA-C [address] [place] [address] Pending Results Name Type Priority Associated Diagnoses Date /Time Electrical Cardioversion Procedure Report Routine Atrial fibrillation with rapid ventricular response (HCC) 11/13/2023 1:18 PM EDT Scheduled Orders Name Type Priority Associated Diagnoses Orde r Schedule EKG EKG Routine Atrial fibrillation, currently in sinus rhythm One Time for 1 Occurrences starting 11/13/2023 until 11/13/2023 Scheduled Procedures Name Priority Associated Diagnoses Date/Ti me COLONOSCOPY FLEXIBLE PROXIMA L DIAGNOSTIC Recall Screening for colon cancer Scheduled Referrals Name Type Priority Associated Diagnoses Order Schedule ENDOCRINOLOGY REFERRAL OP Referral Within 10 days (routine) Type 2 diabetes mellitus with foot ulcer (CODE) (HCC) Ordered: 11/13/2023 Health Maintenance Due Date Last Done Comments Alpha-1 Antitrypsin 1967 Cologuard 1994 Fecal Occult Blood Test 1994 Sigmoidoscopy 1994 *BISPHONATE OR OTHER ACCEPTABLE MEDICATION NEEDED FOR OSTEOPOROSIS (REFER TO SMARTSET #1146) 08/07/2014 Zoster Vaccines (2 of 3) 04/20/2017 02/23/2017 Diabetic Eye Exam 10/28/2021 10/28/2020, , 05/13/2019, Additional history exists Diabetic Foot Exam 01/18/2022 01/18/2021, 0 02/18/2019, 02/19/2018, Additional history exists COVID-19 Vaccine ( season) 2023 05/08/2022, 07/20/2021, 10/13/2020, Additional history exists Albumin/Creatinine Ratio 01/03/2024 023, 09/19/2022, 04/18/2021, Additional history exists HbA1c 05/14/2024 11/13/2023, 08/07, 07/05/2023, Additional history exists Mammogram 06/07/2024 06/07/2023, 08/2021, 06/06/2022, Additional history exists DTaP,Tdap,and Td Vaccines (2 - Td or Tdap) 09/15/2024 09/15/2014, 07/15/2008, 02/09/1998 O2 ASSESSMENT COMPLETED IN PAST YEAR FOR COPD 09/18/2024 09/18/2023 GFR 11/12/2024 11/13/2023, 03/2024, 10/19/2023, Additional history exists DXA Scan 02/19/2025 02/19/2023, 02/03, 05/12/2020, Additional history exists Colonoscopy 09/18/2033 09/18/2023, 09/06, 11/16/2020, Additional history exists Colorectal Cancer Screening 09/18/2033 Pneumococcal Vaccine: 65+ Years Completed 01/20/2016, 01/15/2015, 09/18/2006, Additional history exists VITAMIN D LEVEL ONCE IN A LIFETIME-USE SMARTSET# 31311 Completed 06/18/2020, 07/25/2019, 05/20/2015, Additional history exists LUNG CANCER SCREENING - USE SMARTSET 83869 Completed 12/22/2022, 12/09/2021, 12/24/2020, Additional history exists Influenza Vaccine (FLU shot) Completed 04/04/2023, 05/08/2022, 06/18/2020, Additional history exists COLONOSCOPY-EVERY 2 YRS AGES 18-100 Discontinued 09/18/2023, 09/18/2023, 11/16/2020, Additional history exists GARDASIL-HPV IMMUNIZATION SERIES Aged Out No longer eligible based on patient's age to complete this topic Hepatitis B Aged Out No longer eligi ble based on patient's age to complete this topic MENINGOCOCCAL (MENACTRA/MENVEO) Aged Out No longer eligible based on patient's age to complete this topic documented as of this encounter Medical Devices Implanted Type Area Contract Agent Device Identifier Shelf Expiration Date Model / Serial / Lot Graft Cervical 6x8 [id number] - [id number] Implanted:Qt y: 2 on 08/21/2008 at OR [facility] Tissue - Human Spine Cervical [employer] [id number] / / Screw Spine 14mm [id number] - [id number] Implanted:Qt y: 2 on 08/21/2008 at OR [facility] N/A: Spine Cervical [employer] DEPUY 50014 / / Depuy [place] 14 Mm Sd Con Scr Implanted:Qt y: 2 on 08/21/2008 at OR [facility] N/A: Spine Cervical [employer]Y 60014 / / Description:Depuy skyline 14 mm SD con SCR 34 Mm Plate Implanted:Qt y: 1 on 08/21/2008 at OR [facility] N/A: Spine Cervical / / Description:34 mm Depuy plat e 14 Mm Variable Rescue Implanted:Qt y: 2 on 08/21/2008 at OR [facility] N/A: Spine Cervical / / Description:14 mm variable r escue Screw 3.5x14 Mntr Fa [id number] - [id number] Implanted:Qt y: 10 on 07/13/2010 at OR [facility] N/A: Spine Cervical JNJ : [employer] [id number] / / Devaughn 3.4l452ay [id number] - [id number] Implanted:Qt y: 1 on 07/13/2010 at OR [facility] N/A: Spine Cervical JNJ : [employer] [id number] / / Screw Inner Mntr [id number] - [id number] Implanted:Qt y: 8 on 07/13/2010 at OR [facility] N/A: Spine Cervical JNJ : [employer] [id number] / / Nut Outer Xcon [id number] - [id number] Implanted:Qt y: 2 on 07/13/2010 at OR [facility] N/A: Spine Cervical JNJ : [employer] [id number] / / Screw Inner Xcon [id number] - [id number] Implanted:Qt y: 2 on 07/13/2010 at OR [facility] N/A: Spine Cervical JNJ : [employer] [id number] / / Plate 35mm Xcon [id number] - [id number] Implanted:Qt y: 1 on 07/13/2010 at OR [facility] N/A: Spine Cervical JNJ : [employer] [id number] / / documented as of this encounter Procedures Procedure Name Priority Date/Time Associated Diagnosis Comments TRANSESOPHAGEAL ECHO (COMPLETE) Routine 11/13/2023 2:02 PM EDT Valvular heart disease ELECTRICAL CARDIOVERSION Routine 11/13/2023 1:18 PM EDT Atrial fibrillation with rapid ventricular response (HCC) GLUCOSE METER, POINT OF CARE ALINE 11/13/2023 11:05 AM EDT HEMOGLOBIN A1C Routine 11/13/2023 4:31 AM EDT BASIC METABOLIC PANEL Routine 11/13/2023 4:31 AM EDT PT INR Routine 11/13/2023 4:31 AM EDT CBC Routine 11/13/2023 4:31 AM EDT LIPID PANEL WITHOUT DIRECT LDL Routine 11/13/2023 4:31 AM EDT GLUCOSE METER, POINT OF CARE ALINE 11/12/2023 9:38 PM EDT GLUCOSE METER, POINT OF CARE ALINE 11/12/2023 5:45 PM EDT SARS-COV-2 (COVID-19), NAAT STAT 11/12/2023 2:04 PM EDT RENAL FUNCTION PANEL STAT 11/12/2023 9:25 AM EDT PT INR STAT 11/12/2023 9:25 AM EDT CBC STAT 11/12/2023 9:25 AM EDT documented in this encounter Results * TRANSESOPHAGEAL ECHO (COMPLETE) (11/13/2023 2:02 PM EDT) LEFT VENTRICULAR EJECTION FRACTION 65 % [facility] 11/13/2023 12:3 7 PM EDT Valentino Diaz DO ECHOCARDIOLOGY [facility] * (ABNORMAL) GLUCOSE METER, POINT OF CARE (11/13/2023 11:05 AM EDT) Pathologist [facility] Glucose Meter 311(H) 70 - 120 mg/dL 11/13/2023 11:08 AM EDT [facility] Blood Whole blood specimen / Unknown 11/13/2023 11:05 AM EDT 11/13/2023 11:08 AM EDT Marcel Vargas MD LAB POINT OF CARE TEST DOCKED DEVICE UNSOLICITED RESULTS Performing Organization Address City/[facility] Co de Phone Number [facility] [address] [place] [address] * (ABNORMAL) PT INR (11/13/2023 4:31 AM EDT) Pathologist [facility] Prothrombin Time 15.6(H) 11.6 - 15.2 seconds 11/13/2023 5:15 AM EDT LABORATORY [facility] INR 1.2 0.8 - 1.2 11/13/2023 5:15 AM EDT LABORATORY [facility] Blood Venous blood specimen / Unknown Venipuncture / Unknown 11/13/2023 4:31 AM EDT 11/13/2023 4:44 AM EDT Narrative LAB[facility]ATORY [facility] - 11/13/2023 5:15 AM EDT Warfarin Therapy INR: 2.0-3.0 conventional anticoagulation INR: 2.5-3.5 high intensity anticoagulation [facility] LAB BLOOD ORDERABLES Performing Organization Address City/[facility]/ZIP Co de Phone Number LABORATORY [facility] [address] [place] [address] * (ABNORMAL) CBC (11/13/2023 4:31 AM EDT) WBC 7.57 4.00 - 10.80 K/uL 11/13/2023 4:59 AM EDT [facility] RBC 3.94 3.85 - 5.15 M/uL 11/13/2023 4:59 AM EDT [facility] HGB 11.8(L) 12.0 - 15.3 g/dL 11/13/2023 4:59 AM EDT [facility] HCT 36.9 36.0 - 45.2 % 11/13/2023 4:59 AM EDT [facility] MCV 93.7 81.5 - 97.5 fL 11/13/2023 4:59 AM EDT [facility] MCH 29.9 27.0 - 34.0 pg 11/13/2023 4:59 AM EDT [facility] MCHC 32.0 32.0 - 36.0 g/dL 11/13/2023 4:59 AM EDT [facility] RDW 15.9 11.5 - 15.5 % 11/13/2023 4:59 AM EDT [facility] PLT 141 140 - 400 K/uL 11/13/2023 4:59 AM EDT [facility] MPV 11.4 6.6 - 11.1 fL 11/13/2023 4:59 AM EDT [facility] nRBCs 0 <=0 /100 WBCs 11/13/2023 4:59 AM EDT LABORATORY [facility] Blood Venous blood specimen / Unknown Venipuncture / Unknown 11/13/2023 4:31 AM EDT 11/13/2023 4:44 AM EDT Valentino Diaz LAB BLOOD ORDERABLE S LABORATORY [facility] [address] [place] [address] * (ABNORMAL) BASIC METABOLIC PANEL (11/13/2023 4:31 AM EDT) Pathologist [facility] BUN 31(H) 6 - 20 mg/dL 11/13/2023 5:22 AM EDT [facility] Creatinine 1.3(H) 0.5 - 1.0 mg/dL 11/13/2023 5:22 AM EDT LABORATORY [facility] Estimated Glomerular Filtration Rate 44(L) >=60 mL/min 11/13/2023 5:22 AM EDT LABORATORY [facility] Comment:eGFR is calculated b ased on the CKD-EPI 2020 equation Sodium 135 135 - 146 mmol/L 11/13/2023 5:22 AM EDT LABORATORY [facility] Potassium 3.8 3.5 - 5.1 mmol/L 11/13/2023 5:22 AM EDT LABORATORY [facility] Chloride 99 98 - 107 mmol/L 11/13/2023 5:22 AM EDT LABORATORY C CO2 26 22 - 32 mmol/L 11/13/2023 5:22 AM EDT LABORATORY [facility] Anion Gap 10 7 - 15 mmol/L 11/13/2023 5:22 AM EDT LABORATORY [facility] Glucose 391(H) 70 - 120 mg/dL 11/13/2023 5:22 AM EDT LABORATORY [facility] Calcium 9.0 8.4 - 10.2 mg/dL 11/13/2023 5:22 AM EDT LABORATORY [facility] Blood Venous blood specimen / Unknown Venipuncture / Unknown 11/13/2023 4:31 AM EDT 11/13/2023 4:44 AM EDT Valentino Diaz DO LAB BLOOD ORDERABLE S LABORATORY [facility] [address] [place] [address] * (ABNORMAL) HEMOGLOBIN A1C (11/13/2023 4:31 AM EDT) Hemoglobin A1C 10.2(H) 4.0 - 5.6 % 11/13/2023 5:07 AM EDT LABORATORY [facility] Comment:The use of HbA1c to monitor glycemic status is based on normal hemoglobin and HbA composition. This test should not be used in patients with abnormal hemoglobin that affects the half life of the red blood cell or the in vivo glycation rates. Estimated Average Glucose 246(H) <126 mg/dL 11/13/2023 5:07 AM EDT LABORATORY [facility] Blood Venous blood specimen / Unknown Venipuncture / Unknown 11/13/2023 4:31 AM EDT 11/13/2023 4:44 AM EDT Valentino Wilian Diaz DO LAB BLOOD ORDERABLE S LABORATORY [facility] [address] [facility] [place] [address] * (ABNORMAL) LIPID PANEL WITHOUT DIRECT LDL (11/13/2023 4:31 AM EDT) Triglycerides 125 <=174 mg/dL 11/13/2023 5:22 AM EDT LABORATORY [facility] Comment: Triglyceride Reference Ranges (mg/dL): <150 Acceptable 150-174 Borderline high 175-499 High >=500 Very high Cholesterol 110 <200 mg/dL 11/13/2023 5:22 AM EDT LABORATORY [facility] Comment: Total Cholesterol Reference Ranges (mg/dL): <200 Desirable 200-239 Borderline high >=240 High HDL Cholesterol 34(L) >49 mg/dL 5:22 AM EDT LABORATORY [facility] Comment: HDL Cholesterol Reference Ranges (mg/dL): >=60 High (Desirable) <50 Low (Undesirable) For Females <40 Low (Undesirable) For Males Non-HDL Cholesterol 76 <=159 mg/dL 11/13/2023 5:22 AM EDT LABORATORY [facility] Comment: Non-HDL Cholesterol Reference Range (mg/dL): <100 Target level for high risk ASCVD patient <130 Optimal for general population 130-159 Near optimal for general population 160-189 Borderline High 190-219 High >=220 Very High LDL Cholesterol 51 <=129 mg/dL 11/13/2023 5:22 AM EDT LABORATORY [facility] Comment: LDL Cholesterol Reference Ranges (mg/dL): <70 Target level for high risk ASCVD patient <100 Optimal for general population 100-129 Near optimal for general population 130-159 Borderline high 160-189 High >=190 Very high Blood Venous blood specimen / Unknown Venipuncture / Unknown 11/13/2023 4:31 AM EDT 11/13/2023 4:44 AM EDT Valentino Wilian Diaz DO LAB BLOOD ORDERABLE S LABORATORY [facility] [address] [place] [address] * (ABNORMAL) GLUCOSE METER, POINT OF CARE (11/12/2023 9:38 PM EDT) Glucose Meter 464(H) 70 - 120 mg/dL 11/12/2023 10:11 PM EDT [facility] Blood Whole blood specimen / Unknown 11/12/2023 9:38 PM EDT 11/12/2023 10:11 PM EDT Marcel Vargas MD LAB POINT OF CARE TEST DOCKED DEVICE UNSOLICITED RESULTS Performing Organization Address City/[facility]/ZIP Co de Phone Number [facility] [address] [place] [address] * (ABNORMAL) GLUCOSE METER, POINT OF CARE (11/12/2023 5:45 PM EDT) Glucose Meter 430(H) 70 - 120 mg/dL 11/12/2023 5:47 PM EDT [facility] Blood Whole blood specimen / Unknown 11/12/2023 5:45 PM EDT 11/12/2023 5:47 PM EDT Marcel Vargas MD LAB POINT OF CARE TEST DOCKED DEVICE UNSOLICITED RESULTS Performing Organization Address City/[facility]/ZIP Co de Phone Number [facility] [address] [place] [address] * SARS-COV-2 (COVID-19), NAAT (11/12/2023 2:04 PM EDT) SARS-CoV-2 (COVID-19) Result Negative Negative 11/12/2023 3:04 PM EDT LABORATORY [facility] Comment: 2019 Novel Coronavirus not detected. This express test was developed and its performance characteristics determined by [facility]. It has not been cleared or approved by the U.S. Food and Drug Administration (FDA). FDA does not require this test to go thru premarket FDA review. This test is used for clinical purposes. It should not be regarded as investigational or for research. This laboratory is certified under the Clinical Laboratory Improvement Amendments (CLIA) as qualified to perform high complexity clinical laboratory testing. This test is a nucleic acid amplification test (NAAT), a reverse transcriptase polymerase chain reaction (RT-PCR) test, or a Centers for Disease Control- acceptable equivalent. The test is performed in a high complexity Clinical Laboratory Improvement Amendments-(CLIA) certified laboratory. The test is acceptable for SARS-CoV-2 diagnosis, surveillance, and travel within the [place] and to most countries. Please check with local testing authorities about requirements before travel. The validation of bronchial specimens, tracheal aspirates, and sputum for this assay was developed and performance characteristics determined by [facility]. The validation of alternate specimen types has not been cleared or approved by the U.S. Food and Drug Administration (FDA). It has been determined that such clearance is not necessary. Upper Respiratory Mid-turbinate nasal swab / Unknown Non-blood Collection / Unknown 11/12/2023 2:04 PM EDT 11/12/2023 2:11 PM EDT Valentino Diaz DO LAB MICRO - GENERAL ORDERABLES LABORATORY [facility] [address] [place] [address] * PT INR (11/12/2023 9:25 AM EDT) Prothrombin Time 14.9 11.6 - 15.2 seconds 11/12/2023 10:04 AM EDT LABORATORY [facility] INR 1.2 0.8 - 1.2 11/12/2023 10:04 AM EDT LABORATORY [facility] Blood Venous blood specimen / Unknown Venipuncture / Unknown 11/12/2023 9:25 AM EDT 11/12/2023 9:38 AM EDT Narrative LABORATORY [facility] - 11/12/2023 10:04 AM EDT Warfarin Therapy INR: 2.0-3.0 conventional anticoagulation INR: 2.5-3.5 high intensity anticoagulation Maria D WIN LAB BLOOD ORDERABL ES [facility] [address] [place] [address] * (ABNORMAL) RENAL FUNCTION PANEL (11/12/2023 9:25 AM EDT) BUN 18 6 - 20 mg/dL 11/12/2023 10:10 AM EDT [facility] Creatinine 1.1(H) 0.5 - 1.0 mg/dL 11/12/2023 10:10 AM EDT [facility] Estimated Glomerular Filtration Rate 55(L) >=60 mL/min 11/12/2023 10:10 AM [facility] Comment:eGFR is calculated b ased on the CKD-EPI 2020 equation Sodium 139 135 - 146 mmol/L 11/12/2023 10:10 AM [facility] Potassium 3.7 3.5 - 5.1 mmol/L 11/12/2023 10:10 AM [facility] Chloride 100 98 - 107 mmol/L 11/12/2023 10:10 AM [facility] CO2 25 22 - 32 mmol/L 11/12/2023 10:10 AM [facility] Anion Gap 14 7 - 15 mmol/L 11/12/2023 10:10 AM [facility] Glucose 303(H) 70 - 120 mg/dL 11/12/2023 10:10 AM [facility] Calcium 9.7 8.4 - 10.2 mg/dL 11/12/2023 10:10 AM [facility] Albumin 3.8 3.8 - 5.0 g/dL 11/12/2023 10:10 AM [facility] Phosphorus 2.9 2.5 - 4.8 mg/dL 11/12/2023 10:10 AM [facility] Blood Venous blood specimen / Unknown Venipuncture / Unknown 11/12/2023 9:25 AM EDT 11/12/2023 9:42 AM EDT Maria D [facility] BLO[facility] ORDER[facility]L [facility] [address] [place] [address] * (ABNORMAL) CBC (11/12/2023 9:25 AM EDT) WBC 14.13(H) 4.00 - 10.80 K/uL 11/12/2023 9:50 AM [facility] RBC 4.44 3.85 - 5.15 M/uL 11/12/2023 9:50 AM [facility] HGB 13.3 12.0 - 15.3 g/dL 11/12/2023 9:50 AM [facility] HCT 41.0 36.0 - 45.2 % 11/12/2023 9:50 AM [facility] MCV 92.3 81.5 - 97.5 fL 11/12/2023 9:50 AM [facility] MCH 30.0 27.0 - 34.0 pg 11/12/2023 9:50 AM [facility] MCHC 32.4 32.0 - 36.0 g/dL 11/12/2023 9:50 AM [facility] RDW 16.0 11.5 - 15.5 % 11/12/2023 9:50 AM [facility] PLT 205 140 - 400 K/uL 11/12/2023 9:50 AM [facility] MPV 11.7 6.6 - 11.1 fL 11/12/2023 9:50 AM [facility] nRBCs 0 <=0 /100 WBCs 11/12/2023 9:50 AM [facility] Blood Venous blood specimen / Unknown Venipuncture / Unknown 11/12/2023 9:25 AM EDT 11/12/2023 9:42 AM EDT Maria D WIN [facility] BLOOD ORDERABL [facility] [address] [place] [address] documented in this encounter Visit Diagnoses Diagnosis Atrial fibrillation with rapid ventricular response (HCC)- Primary Atrial fibrillation Atrial fibrillation with rapid ventricular response (HCC) Atrial fibrillation Chest pain Chest pain, unspecified Valvular heart disease Endocarditis, valve unspecified, unspecified cause Atrial fibrillation, currently in sinus rhythm Atrial fibrillation Chronic atrial fibrillation (HCC) Atrial fibrillation Type 2 diabetes mellitus with foot ulcer (CODE) (HCC) Hypotension Hypotension, unspecified Diabetic polyneuropathy associated with type 2 diabetes mellitus (HCC) longterm current use of anticoagulant therapy documented in this encounter Administered Medications Inactive Administered Medications - up to 3 most recent administrations Medication Order MAR Action Action Date Dose Rate Site aspirin chew tab 81 mg 81 mg, Oral, ONCE, On Sun11/12/23 at 0900, For 1 dose, Pre-Op Given 11/12/2023 9:27 AM EDT 81 mg aspirin enteric coated tab 81 mg 81 mg, Oral, Daily(AM), First dose on Sun11/13/23 at 0900, Until Discontinued Given 11/13/2023 7:50 AM EDT 81 mg atorvaSTATin (Lipitor) tab 80 mg 80 mg, Oral, ONCE, On Sun11/12/23 at 0900, For 1 dose, Pre-Op Given 11/12/2023 9:27 AM EDT 80 mg dextrose 50% inj 25 mL 25 mL, IV Push, PRN Hypoglycemia, Other, For blood glucose 54 - 69 mg/dL or 70 - 100 mg/dL with symptoms AND patient is unresponsive, NPO, OR unable to swallow, Starting on Sun11/12/23 at 1803, Until Sun11/13/23 at 2117, Administer IV. Recheck blood glucose after 15 minutes. Notify provider. dextrose 50% inj 50 mL 50 mL, IV Push, PRN Hypoglycemia, Other, For blood glucose below 54 mg/dL AND patient unresponsive, NPO, OR unable to swallow, Starting on Sun11/12/23 at 1803, Until Sun11/13/23 at 211, Administer IV. Recheck blood glucose in 15 minutes. Notify provider. Enoxaparin (Lovenox) inj 90 mg 90 mg (rounded from 85.7 mg = 1 mg/kg 85.7 kg), Subcutaneous, Q12H, First dose (after last modification) on Sun11/12/23 at 1330, Until Discontinued, If patient is on warfarin, inform provider if daily INR value is 2 or greater! Given 11/13/2023 7:46 AM EDT 90 mg Abdomen Right Lower Given 11/12/2023 9:40 PM EDT 90 mg Ab domen Left Upper Given 11/12/2023 2:42 PM EDT 90 mg Ab domen Right Lower glucagon (Glucagen) inj 1 mg 1 mg, Intramuscular, PRN Hypoglycemia, Other, If patient is unresponsive, or NPO and has no IV access, Starting on Sun11/12/23 at 1803, Until Sun11/13/23 at 2116, NPO and no IV access with either 1) blood glucose less than 100 mg/dL and symptomatic OR 2) blood glucose less than 70 mg/dL and asymptomatic Glucose (Glutose 15) 40 % gel 15 g of glucose 15 g of glucose, Oral, PRN Hypoglycemia (low sugar), Other, For blood glucose 54 - 69 mg/dL or 70 - 100 mg/dL with symptoms AND patient alert WITH difficulty chewing/swallowing, Starting on Sun11/12/23 at 1803, Until Sun11/13/23 at 2116, Administer gel. Recheck blood glucose after 15 minutes. Notify provider. 37.5 gram tube = 15 grams glucose = 1 each Glucose (Glutose 15) 40 % gel 30 g of glucose 30 g of glucose, Oral, PRN Hypoglycemia (low sugar), Other, For blood glucose below 54 mg/dL AND patient alert WITH difficulty chewing/swallowing, Starting on Sun11/12/23 at 1803, Until Sun11/13/23 at 2116, Administer gel. Recheck blood glucose after 15 minutes. Notify provider. 37.5 gram tube = 15 grams glucose = 1 each glucose chew tab 16 g 16 g, Oral, PRN Hypoglycemia, Other, For blood glucose 54 - 69 mg/dL or 70 - 100 mg/dL with symptoms and patient alert without difficulty chewing/swallowing., Starting on Sun11/12/23 at 1803, Until Sun11/13/23 at 2116 hEParin 1000 UNIT/ML inj 5,000 Units 5,000 Units, IV Push, PRN Other, Anticoagulation not at goal, Starting on Sun11/12/23 at 1044, Until Sun11/12/23 at 1243, For 2 hours, To be administered in Cardiac Numerical Control Operator intra-procedure., Intra-Op Given 11/12/2023 10:55 AM EDT 2,000 Units insulin aspart (NovoLOG) inj Subcutaneous, W/MEALS AND HS, First dose on Sun11/12/23 at 1800, Until Discontinued, MEDIUM DOSE (Usual starting dose): Sliding Scale Correctional insulin may be given if the patient is NPO. Dose based on standard build from Insulin Calculator. Do not modify insulin doses in administration instructions! , Glucose less than 70 instructions: Obtain STAT lab blood glucose and call covering provider., Glucose 80-150 (units): 0, Glucose 151-200 (units): 2, Glucose 201-250 (units): 4, Glucose 251-300 (units): 6, Glucose greater than 300 (units): 8, Glucose greater than 300 instructions: Give suggested insulin dose and call covering provider. Given 11/12/2023 5:58 PM EDT 8 Units Arm Right Upper insulin aspart (NovoLOG) inj Subcutaneous, W/MEALS AND HS, First dose on Sun11/12/23 at 2200, Until Discontinued, HIGH DOSE (Moderately Insulin Resistance): Sliding Scale Correctional insulin may be given if the patient is NPO. Dose based on standard build from Insulin Calculator. Do not modify insulin doses in administration instructions! , Glucose less than 70 instructions: Obtain STAT lab blood glucose and call covering provider., Glucose 80-150 (units): 0, Glucose 151-200 (units): 3, Glucose 201-250 (units): 6, Glucose 251-300 (units): 9, Glucose greater than 300 (units): 12, Glucose greater than 300 instructions: Give suggested insulin dose and call covering provider. Given 11/13/2023 11:23 AM EDT 12 Units Arm Right Upper Given 11/13/2023 7:13 AM EDT 12 Units Ar m Right Upper Given 11/12/2023 11:03 PM EDT 12 Units A rm Right Upper insulin aspart (NovoLOG) inj Subcutaneous, WITH MEALS, First dose (after last modification) on Sun11/13/23 at 0800, Until Discontinued, Dose equals 1 unit of insulin per 6 grams of carbohydrate consumed. Hold dose if patient does not eat Given 11/13/2023 3:17 PM EDT 6 Units Arm Right Upper Insulin Glargine (Lantus) inj 20 Units 20 Units, Subcutaneous, HSINSULIN, First dose on Sun11/12/23 at 2200, Until Discontinued, "IF DOSE IS HELD- NOTIFY COVERING PROVIDER!" Given 11/12/2023 9:41 PM EDT 20 Units Abdomen Right Upper Insulin Glargine (Lantus) inj 25 Units 25 Units, Subcutaneous, HSINSULIN, First dose (after last modification) on Sun11/13/23 at 2200, Until Discontinued, "IF DOSE IS HELD- NOTIFY COVERING PROVIDER!" Ioversol (Optiray 350) 74 % inj 60 mL 60 mL, Intracoronary, ONCE, On Sun11/12/23 at 1145, For 1 dose, Intra-Op Given 11/12/2023 11:05 AM EDT 60 mL isosorbide mononitrate SA (Imdur) tab 60 mg 60 mg, Oral, Daily(AM), First dose on Sun11/13/23 at 0900, Until Discontinued, Hold for 24 hours prior to Stress Test and notify service if dose is held This med should NOT be Crushed or Chewed Given 11/13/2023 7:48 AM EDT 60 mg metoprolol succinate XL (toPROL XL) tab 50 mg 50 mg, Oral, BID (.AM/PM), First dose on Sun11/12/23 at 2100, Until Discontinued, Hold for HR less than 60 or SBP below 100 and notify service if dose is held This med should NOT be Crushed or Chewed. Given 11/13/2023 7:48 AM EDT 50 mg Given 11/12/2023 9:40 PM EDT 50 mg NSS infusion Intravenous, at 100 mL/hr, CONTINUOUS, Starting on Sun11/12/23 at 0900, Until Sun11/12/23 at 1859, Pre-Op New Bag 11/12/2023 9:00 AM EDT 100 mL/hr PHENYLephrine (Push Dose) (100 mcg/mL) inj dilution 100 mcg 100 mcg, IV Push, ONCE, On Sun11/12/23 at 1130, For 1 dose, To be administered in Cardiac Numerical Control Operator intra-procedure. Administer each 500 mcg over 1 minute, Intra-Op Given 11/12/2023 10:52 AM EDT 100 mcg potassium and sodium phosphate (Phos-Nak) oral powder 1 Packet 1 Packet, Oral, ONCE, On Sun11/12/23 at 1430, For 1 dose, Mix 1 packet in 2.5 ounces (75 mL) of water, stir well and administer promptly. 1 packet contains Phosphorus 250 mg (~8 mMoles) + potassium 280 mg (~7.125 mEq) + sodium 160mg (~7.125 mEq) Given 11/12/2023 2:42 PM EDT 1 Packet potassium chloride ER tab 20 mEq 20 mEq, Oral, ONCE, On Sun11/13/23 at 0600, For 1 dose, This med should NOT be Crushed or Chewed Given 11/13/2023 7:13 AM EDT 20 mEq potassium chloride ER tab 30 mEq 30 mEq, Oral, ONCE, On Sun11/12/23 at 1430, For 1 dose, This med should NOT be Crushed or Chewed Given 11/12/2023 2:41 PM EDT 30 mEq Pregabalin (Lyrica) cap 150 mg 150 mg, Oral, BID (.AM/PM), First dose on Sun11/12/23 at 2100, Until Discontinued Given 11/13/2023 7:47 AM EDT 150 mg Given 11/12/2023 9:40 PM EDT 150 mg rosuvastatin (Crestor) tab 20 mg 20 mg, Oral, Daily(AM), First dose on Sun11/13/23 at 0900, Until Discontinued Given 11/13/2023 7:48 AM EDT 20 mg sertraline (Zoloft) tab 75 mg 75 mg, Oral, HS, First dose on Sun11/12/23 at 2200, Until Discontinued Given 11/12/2023 9:40 PM EDT 75 mg sodium chloride 0.9 % flush peripheral laura 3 mL 3 mL, IV Push, QSHIFT, First dose on Sun11/12/23 at 0900, Until Discontinued, Do not flush if lock, PICC, or central line not in place; IV infusing or unable to flush., Pre-Op Given 11/13/2023 7: 13 AM EDT 3 mL Given 11/12/2023 11:11 PM EDT 3 mL Given 11/12/2023 4:00 PM EDT 3 mL traZODone (Desyrel) tab 50 mg 50 mg, Oral, QHS, First dose on Sun11/12/23 at 2200, Until Discontinued Given 11/12/2023 9:40 PM EDT 50 mg warfarin check daily dose (PHARMACIST MANAGED) [id number], First dose on Sun11/12/23 at 1500, Until Discontinued, Routine, Contact the pharmacy if there is not a warfarin dose entered by 1500 and document with whom it was discussed. Warfarin Sodium (Coumadin) tab 10 mg 10 mg, Oral, QPM-1999, First dose on Sun11/12/23 at 1999, Last dose on Sun11/12/23 at 1999, For 1 day, WASTE INFO: Return packaging and waste medication in zip lock bag to pharmacy - [facility] container. Given 11/12/2023 9:40 PM EDT 10 mg Warfarin Sodium (Coumadin) tab 10 mg 10 mg, Oral, QPM-1999, First dose on Sun11/13/23 at 1999, Last dose on Sun11/13/23 at 1999, For 1 day, WASTE INFO: Return packaging and waste medication in zip lock bag to pharmacy - [facility] container. documented in this encounter Active and Recently Administered Medications Times are shown in EDT. Scheduled Medication Order 11/11/2023 11/12/2023 11/13/2023 aspirin chew tab 81 mg (COMPLETED) 81 mg, Oral, ONCE, On Sun11/12/23 at 0900, For 1 dose, Pre-Op 926 (Given - Provider: Rajan Gallegos RN) aspirin enteric coated tab 81 mg 81 mg, Oral, Daily(AM), First dose on Sun11/13/23 at 0900, Until Discontinued 0750 (Given - Provid er: Delphine Dia RN) atorvaSTATin (Lipitor) tab 80 mg (COMPLETED) 80 mg, Oral, ONCE, On Sun11/12/23 at 0900, For 1 dose, Pre-Op 926 (Given - Provider: Rajan Gallegos RN) Enoxaparin (Lovenox) inj 90 mg 90 mg (rounded from 85.7 mg = 1 mg/kg 85.7 kg), Subcutaneous, Q12H, First dose (after last modification) on Sun11/12/23 at 1330, Until Discontinued, If patient is on warfarin, inform provider if daily INR value is 2 or greater! 1442 (Given - Provider: Rajan Gallegos RN)2140 (Given - Provider: Maria D Crow RN) 0746 (Given - Provider: Delphine Dia RN) insulin aspart (NovoLOG) inj (CANCELED) Subcutaneous, W/MEALS AND HS, First dose on Sun11/12/23 at 1800, Until Discontinued, MEDIUM DOSE (Usual starting dose): Sliding Scale Correctional insulin may be given if the patient is NPO. Dose based on standard build from Insulin Calculator. Do not modify insulin doses in administration instructions! , Glucose less than 70 instructions: Obtain STAT lab blood glucose and call covering provider., Glucose 80-150 (units): 0, Glucose 151-200 (units): 2, Glucose 201-250 (units): 4, Glucose 251-300 (units): 6, Glucose greater than 300 (units): 8, Glucose greater than 300 instructions: Give suggested insulin dose and call covering provider. 1758 (Given - Provider: Chiquita Salinas RN) insulin aspart (NovoLOG) inj Subcutaneous, W/MEALS AND HS, First dose on Sun11/12/23 at 2200, Until Discontinued, HIGH DOSE (Moderately Insulin Resistance): Sliding Scale Correctional insulin may be given if the patient is NPO. Dose based on standard build from Insulin Calculator. Do not modify insulin doses in administration instructions! , Glucose less than 70 instructions: Obtain STAT lab blood glucose and call covering provider., Glucose 80-150 (units): 0, Glucose 151-200 (units): 3, Glucose 201-250 (units): 6, Glucose 251-300 (units): 9, Glucose greater than 300 (units): 12, Glucose greater than 300 instructions: Give suggested insulin dose and call covering provider. 2303 (Given - Provider: Maria D Crow RN) 0713 (Given - Provider: Delphine Dia RN - Comment: Dr. Diaz aware of BG 391, OK to giev 12 units as ordered)1123 (Given - Provider: Delphine Dia RN - Comment: Valentino Diaz aware BG 311, OK to give 12 units as ordered)1700 (Due) insulin aspart (NovoLOG) inj Subcutaneous, WITH MEALS, First dose (after last modification) on Sun11/13/23 at 0800, Until Discontinued, Dose equals 1 unit of insulin per 6 grams of carbohydrate consumed. Hold dose if patient does not eat 0706 (No Insulin - Provider: Delphine Dia RN - Reason: NPO)1517 (Given - Provider: Delphine Dia RN)1700 (Due) Insulin Glargine (Lantus) inj 20 Units (CANCELED) 20 Units, Subcutaneous, HSINSULIN, First dose on Sun11/12/23 at 2200, Until Discontinued, "IF DOSE IS HELD- NOTIFY COVERING PROVIDER!" 2140 (Given - Provider: Maria D Crow, LO) Insulin Glargine (Lantus) inj 25 Units 25 Units, Subcutaneous, HSINSULIN, First dose (after last modification) on Sun11/13/23 at 2200, Until Discontinued, "IF DOSE IS HELD- NOTIFY COVERING PROVIDER!" Ioversol (Optiray 350) 74 % inj 60 mL (COMPLETED) 60 mL, Intracoronary, ONCE, On Sun11/12/23 at 1145, For 1 dose, Intra-Op 1105 (Given - Provider: Cal Watts, RT) isosorbide mononitrate SA (Imdur) tab 60 mg 60 mg, Oral, Daily(AM), First dose on Sun11/13/23 at 0900, Until Discontinued, Hold for 24 hours prior to Stress Test and notify service if dose is held This med should NOT be Crushed or Chewed 0748 (Given - Provid er: Delphine Dia RN) metoprolol succinate XL (toPROL XL) tab 50 mg 50 mg, Oral, BID (.AM/PM), First dose on Sun11/12/23 at 2100, Until Discontinued, Hold for HR less than 60 or SBP below 100 and notify service if dose is held This med should NOT be Crushed or Chewed. 2139 (Given - Provider: Maria D Crow RN) 0748 (Given - Provider: Delphine Dia RN) PHENYLephrine (Push Dose) (100 mcg/mL) inj dilution 100 mcg (COMPLETED) 100 mcg, IV Push, ONCE, On Sun11/12/23 at 1130, For 1 dose, To be administered in Cardiac Numerical Control Operator intra-procedure. Administer each 500 mcg over 1 minute, Intra-Op 1052 (Given - Provider: Kelsey Dunham RN)1130 (Entry Error - Provider: Chiquita Salinas RN) potassium and sodium phosphate (Phos-Nak) oral powder 1 Packet (COMPLETED) 1 Packet, Oral, ONCE, On Sun11/12/23 at 1430, For 1 dose, Mix 1 packet in 2.5 ounces (75 mL) of water, stir well and administer promptly. 1 packet contains Phosphorus 250 mg (~8 mMoles) + potassium 280 mg (~7.125 mEq) + sodium 160mg (~7.125 mEq) 1442 (Given - Provider: Rajan Gallegos RN) potassium chloride ER tab 20 mEq (COMPLETED) 20 mEq, Oral, ONCE, On Sun11/13/23 at 0600, For 1 dose, This med should NOT be Crushed or Chewed 0713 (Given - Provid er: Delphine Dia RN) potassium chloride ER tab 30 mEq (COMPLETED) 30 mEq, Oral, ONCE, On Sun11/12/23 at 1430, For 1 dose, This med should NOT be Crushed or Chewed 1441 (Given - Provider: Rajan Gallegos RN) Pregabalin (Lyrica) cap 150 mg 150 mg, Oral, BID (.AM/PM), First dose on Sun11/12/23 at 2100, Until Discontinued 2139 (Given - Provider: Maria D Crow RN) 0747 (Given - Provider: Delphine Dia RN) rosuvastatin (Crestor) tab 20 mg 20 mg, Oral, Daily(AM), First dose on Sun11/13/23 at 0900, Until Discontinued 0748 (Given - Provid er: Delphine Dia RN) sertraline (Zoloft) tab 75 mg 75 mg, Oral, HS, First dose on Sun11/12/23 at 2200, Until Discontinued 2139 (Given - Provider: Maria D Crow RN) sodium chloride 0.9 % flush peripheral laura 3 mL 3 mL, IV Push, QSHIFT, First dose on Sun11/12/23 at 0900, Until Discontinued, Do not flush if lock, PICC, or central line not in place; IV infusing or unable to flush., Pre-Op 0900 (Given - Provider: Rajan Gallegos RN)1600 (Given - Provider: Chiquita Salinas RN)2311 (Given - Provider: Maria D Crow RN) 0713 (Given - Provider: Delphine Dia RN)1600 (Due) traZODone (Desyrel) tab 50 mg 50 mg, Oral, QHS, First dose on Sun11/12/23 at 2200, Until Discontinued 2139 (Given - Provider: Maria D Crow, LO) warfarin check daily dose (PHARMACIST MANAGED) [id number], First dose on Sun11/12/23 at 1500, Until Discontinued, Routine, Contact the pharmacy if there is not a warfarin dose entered by 1500 and document with whom it was discussed. 1600 (Order Check Addressed - Provider: Chiquita Salinas, LO) 1439 (Order Check Addressed - Provider: Delphine Dia, LO) Warfarin Sodium (Coumadin) tab 10 mg (COMPLETED) 10 mg, Oral, QPM-1999, First dose on Sun11/12/23 at 1999, Last dose on Sun11/12/23 at 1999, For 1 day, WASTE INFO: Return packaging and waste medication in zip lock bag to pharmacy - [facility] container. 2139 (Given - Provider: Maria D Crow RN) Warfarin Sodium (Coumadin) tab 10 mg 10 mg, Oral, QPM-1999, First dose on Sun11/13/23 at 1999, Last dose on Sun11/13/23 at 1999, For 1 day, WASTE INFO: Return packaging and waste medication in zip lock bag to pharmacy - [facility] container. Continuous Medication Order 11/11/2023 11/12/2023 11/13/2023 NSS infusion () Intravenous, at 100 mL/hr, CONTINUOUS, Starting on Sun11/12/23 at 0900, Until Sun11/12/23 at 1859, Pre-Op 0900 (New Bag - Provider: Rajan Gallegos RN) PRN Medication Order 11/11/2023 11/12/2023 11/13/2023 dextrose 50% inj 25 mL 25 mL, IV Push, PRN Hypoglycemia, Other, For blood glucose 54 - 69 mg/dL or 70 - 100 mg/dL with symptoms AND patient is unresponsive, NPO, OR unable to swallow, Starting on Sun11/12/23 at 1803, Until Sun11/13/23 at 211, Administer IV. Recheck blood glucose after 15 minutes. Notify provider. dextrose 50% inj 50 mL 50 mL, IV Push, PRN Hypoglycemia, Other, For blood glucose below 54 mg/dL AND patient unresponsive, NPO, OR unable to swallow, Starting on Sun11/12/23 at 1803, Until Sun11/13/23 at 2117, Administer IV. Recheck blood glucose in 15 minutes. Notify provider. glucagon (Glucagen) inj 1 mg 1 mg, Intramuscular, PRN Hypoglycemia, Other, If patient is unresponsive, or NPO and has no IV access, Starting on Sun11/12/23 at 1803, Until Sun11/13/23 at 2116, NPO and no IV access with either 1) blood glucose less than 100 mg/dL and symptomatic OR 2) blood glucose less than 70 mg/dL and asymptomatic Glucose (Glutose 15) 40 % gel 15 g of glucose 15 g of glucose, Oral, PRN Hypoglycemia (low sugar), Other, For blood glucose 54 - 69 mg/dL or 70 - 100 mg/dL with symptoms AND patient alert WITH difficulty chewing/swallowing, Starting on Sun11/12/23 at 1803, Until Sun11/13/23 at 2116, Administer gel. Recheck blood glucose after 15 minutes. Notify provider. 37.5 gram tube = 15 grams glucose = 1 each Glucose (Glutose 15) 40 % gel 30 g of glucose 30 g of glucose, Oral, PRN Hypoglycemia (low sugar), Other, For blood glucose below 54 mg/dL AND patient alert WITH difficulty chewing/swallowing, Starting on Sun11/12/23 at 1803, Until Sun11/13/23 at 2116, Administer gel. Recheck blood glucose after 15 minutes. Notify provider. 37.5 gram tube = 15 grams glucose = 1 each glucose chew tab 16 g 16 g, Oral, PRN Hypoglycemia, Other, For blood glucose 54 - 69 mg/dL or 70 - 100 mg/dL with symptoms and patient alert without difficulty chewing/swallowing., Starting on Sun11/12/23 at 1803, Until Sun11/13/23 at 2116 hEParin 1000 UNIT/ML inj 5,000 Units () 5,000 Units, IV Push, PRN Other, Anticoagulation not at goal, Starting on Sun11/12/23 at 1044, Until Sun11/12/23 at 1243, For 2 hours, To be administered in Cardiac Numerical Control Operator intra-procedure., Intra-Op 1055 (Given - Provider: Kelsey Dunham RN) documented in this encounter Advance Directives Latest Code Status on File Code Status Date Activated Date Inactivated Comments Full Code 11/12/2023 12:44 PM 11/13/2023 9:17 PM This o rder reflects the patients wishes and were consensually agreed upon. Question Answer Comments Discussion of Advance Directives occurred with: Not Discussed due to patient's condition Does the patient have a Living Will? No Does the patient have Health Care Power of Eligibility Supervisor? No Code Status History Code Status Date Activated Date Inactivated Comments Full Code 11/12/2023 12:33 PM 11/12/2023 12:44 PM This order reflects the patients wishes and were consensually agreed upon. Question Answer Comments Discussion of Advance Directives occurred with: Patient Full Code 05/02/2019 4:53 PM 05/04/2019 8:34 PM This order reflects the patients wishes and were consensually agreed upon. Full Code 05/02/2019 11:29 AM 05/02/2019 4:53 PM This order reflects the patients wishes and were consensually agreed upon. Question Answer Comments Discussion of Advance Directives occurred with: Patient Does the patient have a Living Will? No Does the patient have Health Care Power of Eligibility Supervisor? No Full Code 07/13/2010 12:29 PM 07/17/2010 4:03 PM Thi s order reflects the patients wishes and were consensually agreed upon. Question Answer Comments Discussion of Advance Directives occurred with: Not Discussed Does the patient have a Living Will? No Does the patient have Health Care Power of Eligibility Supervisor? No Care Teams [employer] Relationship Specialty Start Date End Date Alfa Jaramillo MD [address] [place] [address] PCP - General 05/06/00 documented as of this encounter
--- OUTSIDE RECORDS SUMMARY | 2023-11-15 18:34 | External Medical Summary | Summary of Care ---
Author Name Unknown Organization [facility] Address [address] [place] [address] Phone [phone] Care Team Providers Care Director Clinical Operations Name Role Phone Alfa Jaramillo MD Primary Care Provider [phone]- [phone] Reason for Visit * Auth/Cert Specialty Diagnoses / Procedures Referred By Contac t Referred To Contact Diagnoses Unstable angina (HCC) CAD (coronary artery disease) Unstable angina (HCC) [I20.0] CAD (coronary artery disease) [I25.10] Procedures CORONARY ANGIOGRAPHY W/LEFT HEART CATH CORONARY ANGIOGRAPHY W/LEFT HEART CATH Huey Barrera MD [address] [place] [address] Crs Waiting Ip [facility] [address] [place] [address] Referral ID Status Reason Start Date Expiration Date Visits Re quested Visits Authorized [id number] Encounter Details Date Type Department Care Team (Latest Contact Info) Description 11/13/2023 7:30 AM EDT - 11/13/2023 11:59 PM EDT Hospital Encounter Cardiac Studies [facility] [address] [place] [address] Discharge Disposition: Home - Self Care Allergies [...] directed. Change every 10 days. Supplied by [employer]: [phone] 0 Active Dexcom G6 Transmitter Use as directed. Change every 90 days. Supplied by [employer]: [phone] 0 Active Dexcom G6 Mobile Security Architect Device Use as directed. 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 current use of anticoagulant therapy,Deep vein thrombosis (DVT) ([facility]) TAKE ONE TABLET TO ONE AND ONE-HALF TABLET BY MOUTH EVERY DAY DIRECTED BY [facility] 135 Tablet 4 09/12/19 25 Active Insulin Aspart 100 UNIT/ML Injection Solution (NovoLOG)Indication s:Type 2 diabetes mellitus with foot ulcer, with long-term current use of insulin ([facility]),DM (diabetes mellitus) type II, controlled, with peripheral vascular disorder ([facility]) FOR USE WITH AN INSULIN PUMP, UP TO 310 UNITS DAILY- dose increase 300 mL 4 Active Accu-Chek Guide In Vitro Strip (Glucose Blood)Indications:T ype 2 diabetes mellitus with foot ulcer, with long-term current use of insulin ([facility]),DM (diabetes mellitus) type II, controlled, with peripheral vascular disorder ([facility]) Use to test blood glucose 4 times daily. E11.9 400 Strip 3 4 Active Accu-Chek Guide Me w/Device KitIndications:Type 2 diabetes mellitus with foot ulcer, with long-term current use of insulin (HCC),DM (diabetes mellitus) type II, controlled, with peripheral vascular disorder (HCC) Use as directed. 0 4 Active Accu-Chek Softclix LancetsIndications: Type 2 diabetes mellitus with foot ulcer, with long-term current use of insulin (HCC),DM (diabetes mellitus) type II, controlled, with peripheral vascular disorder ([facility]) Use to test blood glucose 4 times daily. DX: E11.9 400 Each 3 4 Active Aspirin 81 MG Oral Tablet Delayed Release Take 1 Tablet by mouth in the morning. 0 4 Active Rosuvastatin Calcium 20 MG Oral Tablet (Crestor)Indication s:Dyslipidemia, goal LDL below 70 Take 1 Tablet by mouth in the morning. 90 Tablet 3 4 Active Digoxin 125 MCG Oral Tablet (Lanoxin)Indication s:Permanent atrial fibrillation (HCC) Take 1 Tablet by mouth in the morning. 90 Tablet 3 4 11/13/19 24 Discontinued documented as of this encounter [...] artery disease of n ative artery of [place] heart with stable angina pectoris 12/08/2020 History [...] Per Lipid Taxonomy. Cervical spinal stenosis 08/21/2008 [facility] current use of anticoagulant therapy 0 05/03/2005 [...] Sign Reading Time Taken Comments Blood Pressure 95/66 11/13/2023 2:00 PM EDT Pulse 61 11/13/2023 2:00 PM EDT Temperature - - Respiratory Rate 14 11/13/2023 2:00 PM EDT Oxygen Saturation 96% 11/13/2023 2:00 PM EDT Inhaled Oxygen Concentration - - Weight - - Height - - Body Mass Index - - documented in this encounter Functional Status Functional [...] No 05/02/2019 documented as of this encounter Nursing Notes * Jacqueline Jarrett RN - 11/13/2023 12:32 PM EDT Nursing Note for JORGE procedure in the echo lab: 1230 The patient arrived to the echo lab. The JORGE procedure and risks were explained to the patient. All questions were answered and the patient was connected to the monitors and prepped for the procedure. 1240 The echo doctor, Dr. Kath Rojo and fellow, Dr. Kath Valdes arrived to the exam room and explained the procedure and risks to the patient. All questions were answered. The informed consent was obtainedprior to arriving to the lab by the inpatient team, the consent for both the JORGE and DCC were scanned into this chart. 1259 The JORGE probe was inserted without difficulty or complications and the vital signs were stable. Probe number [id number] The JORGE procedure was completed without complications; the patient tolerated it well and the vital signs are stable. The JORGE probe was removed without any complications. 1312 Patient was successfully cardioverted with [address] Valdes and Dr. Rojo. The patient isin NSR and VSS; Post cardioversion EKG was completed. 1400 Post procedure the patients vital signs were continuously monitored and the patient was assessed for level of alertness and pain. During the recovery the patient c/o slight lightheadedness and her BP was low 74/49, so we hung a bag of saline and gave a 500 ml bolus and then left the fluids runin slowly at 100ml /hr. Vital signs improved and remained stable and after 60 minutes of recovery it was deemed that the patient was stable and safe to transfer to the inpatient unit nurse. Report was called to the inpatient unit nurse, Agnieszka. The patient was assessed by the echo physcian, Dr. Valdes prior to leaving the echo lab. The patient was transferred via liter with the patient transport staff. The patients throat was sprayed with Benzocaine at 1249. The Initial sedation dose was administeredat 1250; The last sedation dose was administered at 1256; The total sedation administered during the procedure was Versed 2 mg; Fentanyl 50 mcg. Jacqueline Jarrett RN Adult Echo Lab [id number] documented in this encounter Plan of Treatment Upcoming Encounters Date Type Department Care Team (Late st Contact Info) Description 11/14/2023 5:10 PM EDT [facility] [place] [address] [facility] [address] [facility] [address] [facility] [address] History of DVT (deep vein thrombosis)*; Chronic atrial fibrillation (HCC) 11/22/2023 8:20 AM EDT [facility] [place] [address] [facility] [address] [facility] [address] [place] [address] 11/27/2023 9:30 AM EDT Office Visit Podiatry [address] [place] [phone] Kenny Archibald, DPM [address] [place] [address] 12/11/2023 10:00 AM EDT Office Visit Cardiology, [facility] [address] [place] [address] Apple Durbin CRNP [address] [facility] [place] [place] [address] 12/12/2023 2:30 PM EDT Anticoagulation Pharmacy, [place] [address] [place] [address] [facility] [address] [place] [address] 12/12/2023 2:40 PM EDT Office Visit Pharmacy, [place] [address] [place] [address] [facility] [address] [place] [address] 01/03/2024 1:00 PM EDT Office Visit Family [facility], [place] [address] [place] [id number] Natalia Heller PALoiC [address] [place] [address] Scheduled Procedures Name Priority Associated Diagnoses Date/Ti me COLONOSCOPY FLEXIBLE PROXIMA L DIAGNOSTIC Recall Screening for colon cancer Health Maintenance Due Date Last Done Comments [...] 07/05/2023, Additional history exists Mammogram 06/07/2024 06/07/2023, 1108/2021, 06/06/2022, Additional history exists DTaP,Tdap,and Td Vaccines (2 - Td or Tdap) 09/15/2024 09/15/2014, 07/15/2008, 02/09/1998 O2 ASSESSMENT COMPLETED IN PAST YEAR FOR COPD 09/18/2024 09/18/2023 GFR 11/12/2024 11/13/2023, 04/0 03/2024, 10/19/2023, Additional history exists DXA Scan 02/19/2025 02/19/2023, 02/03, 05/12/2020, Additional history exists Colonoscopy 09/18/2033 09/18/2023, 09/06, 11/16/2020, Additional history exists Colorectal Cancer Screening 09/18/2033 Pneumococcal Vaccine: 65+ Years Completed 01/20/2016, 01/15/2015, 09/18/2006, Additional history exists VITAMIN D LEVEL ONCE IN A LIFETIME-USE SMARTSET# [id number] Completed 06/18/2020, 07/25/2019, 05/20/2015, Additional history exists LUNG CANCER SCREENING - USE SMARTSET 60535 Completed 12/22/2022, 12/09/2021, 12/24/2020, Additional history exists [...] this encounter Medical Devices Implanted Type Area Surgical Scrub Technician Device Identifier Shelf Expiration Date Model / Serial / Lot Graft Cervical 6x8 [id number] - [id number] Implanted:Qt y: 2 on 08/21/2008 at OR [facility] Tissue - Human Spine Cervical [employer] [id number] / / Screw Spine 14mm [id number] - [id number] Implanted:Qt y: 2 on 08/21/2008 at OR [facility] N/A: Spine Cervical [employer] DEPUY [id number] / / Depuy Cleary 14 Mm Sd Con Scr Implanted:Qt y: 2 on 08/21/2008 at OR [facility] [place] N/A: Spine Cervical [employer] [id number] / / Description:Depuy skyline 14 mm SD con SCR 34 Mm Plate Implanted:Qt y: 1 on 08/21/2008 at OR [facility] [place] N/A: Spine Cervical [id number] / / Description:34 mm Depuy plat e 14 Mm Variable Rescue Implanted:Qt y: 2 on 08/21/2008 at OR [facility] [place] N/A: Spine Cervical [id number] / / Description:14 mm variable r escue Screw 3.5x14 Mntr Fa [id number] - [id number] Implanted:Qt y: 10 on 07/13/2010 at OR [facility] [place] N/A: Spine Cervical JNJ : [employer] [id number] / / Devaughn 3.7w163id [id number] - [id number] Implanted:Qt y: 1 on 07/13/2010 at OR [facility] [place] N/A: Spine Cervical JNJ : [employer] [id number] / / Screw Inner Mntr [id number] - [id number] Implanted:Qt y: 8 on 07/13/2010 at OR [facility] N/A: Spine Cervical JNJ : [employer] [id number] / / Nut Outer Xcon [id number] - [id number] Implanted:Qt y: 2 on 07/13/2010 at OR [facility] N/A: Spine Cervical JNJ : [employer] [id number] / / Screw Inner Xcon [id number] - [id number] Implanted:Qt y: 2 on 07/13/2010 at OR [facility] [place] N/A: Spine Cervical JNJ : [employer] [id number] / / Plate 35mm Xcon [id number] - [id number] Implanted:Qt y: 1 on 07/13/2010 at OR [facility] N/A: Spine Cervical JNJ : [employer] [id number] / / documented as of this encounter Procedures Procedure Name Priority Date/Time Associated Diagnosis Comments TRANSESOPHAGEAL ECHO (COMPLETE) Routine 11/13/2023 2:02 PM EDT Valvular heart disease documented in this encounter Visit Diagnoses Diagnosis Atrial fibrillation with rapid ventricular response (HCC)- Primary Atrial fibrillation Hypotension, unspecified hypotension type History of DVT (deep vein thrombosis)- Primary Personal history of venous thrombosis and embolism Chronic atrial fibrillation (HCC) Atrial fibrillation documented in this encounter Administered Medications Inactive Administered Medications - up to 3 most recent administrations Medication Order MAR Action Action Date Dose Rate Site benzocaine (topical) (Hurricaine) 20 % spray 2 Sheyenne 2 Sheyenne, Topical, PRN For Transesophageal Study Only, Intra-Op, Starting on Sun11/13/23 at 1230, Until Sun11/13/23 at 1429, For 2 hours, For Transesophageal Study Only, Intra-Op, Cardiac Studies_HODHOV Given 11/13/2023 12:49 PM EDT 1 Each fentaNYL (PF) inj ONCE PRN NARRATOR, Starting on Sun11/13/23 at 1250, Until Sun11/13/23 at 1250 Given 11/13/2023 12:50 PM EDT 50 mcg midazolam (Versed) 2 MG/2ML inj ONCE PRN NARRATOR, Starting on Sun11/13/23 at 1250, Until Sun11/13/23 at 1256 Given 11/13/2023 12:56 PM EDT 1 mg Given 11/13/2023 12:50 PM EDT 1 mg NSS 0.9% 250 mL bolus infusion Intravenous, at 250 mL/hr Administer over 60 Minutes, For Cardiac Studies Only - For Hypotension give over 15 minutes, PRN, Starting on Sun11/13/23 at 1358, Until Sun11/13/23 at 1557, Other, Hypotension, For Cardiac Studies Only - For Hypotension, Cardiac Studies_HODHOV New Bag 11/13/2023 1:58 PM EDT 500 mL 250 mL/h r documented in this encounter Advance Directives Latest [...] the patient have Health Care Power of Flash Drier Operator? No Code Status History Code Status Date [...] the patient have Health Care Power of Flash Drier Operator? No Full Code 07/13/2010 12:29 PM 07/17/2010 4:03 PM Thi s order reflects the patients wishes and were consensually agreed upon. Question Answer Comments Discussion of Advance Directives occurred with: Not Discussed Does the patient have a Living Will? No Does the patient have Health Care Power of Flash Drier Operator? No Care Teams Director Clinical Operations Relationship Specialty Start Date End Date Alfa Jaramillo MD [address] [place] [address] PCP - General 05/06/00 documented as of this encounter
--- OUTSIDE RECORDS SUMMARY | 2023-11-15 18:34 | External Medical Summary | Summary of Care ---
Author Name Unknown Organization [facility] Address [address] [facility] [place] [address] Phone [phone] Care Team Providers Care Roofer Gypsum Name Role Phone Alfa Jaramillo MD Primary Care Provider [phone]- [phone] Reason for Visit * Reason Comments Hospital Follow-Up Encounter Details Date Type Department Care Team (Latest Contact Info) Description 11/14/2023 5:10 PM EDT Anticoagulation Pharmacy, [address] [address] [facility] [address] [place] [address] History of DVT (deep vein thrombosis)*; Chronic atrial fibrillation (HCC) Allergies Active Allergy Reactions Criticality Noted Date Comments Alendronate Sodium 06/24/2012 Burning sensation and difficulty breathing Proton Pump Inhibitors Hives 02/20/2002 nexium documented as of this encounter (statuses as of 11/14/2023) Medications Medication Sig Dispensed Refills Start Date End Date Status INSULIN SYRINGE 30G X 1/2" 0.5 ML MISCIndications:DM type 2, goal A1c below 7 use for injections daily 3 boxes 3 05/27/2007 Active albuterol (PROAIR HFA) 108 (90 BASE) MCG/ACT inhalerIndications:B ronchitis, complicated Inhale 2 Puffs by mouth 4 times a day. May substitute proventil or ventolin based on formulary 1 Inhaler 1 04/18/2018 Active Cholecalciferol 25 MCG (1000 UT) Capsule Take 1 Capsule by mouth in the morning. 0 Active Multiple Vitamin (DAILY VALUE MULTIVITAMIN) Tablet Take 1 Tablet by mouth in the morning. 0 Active traZODone HCl 50 MG Oral Tablet (DESYREL)Indications :Primary insomnia TAKE 1 TABLET BY MOUTH EVERYDAY AT BEDTIME 90 Tab 3 06/08/2020 Active B-12-SL 1000 MCG Sublingual Tablet Sublingual (Cyanocobalamin)Margot cations:Malaise and fatigue,B12 deficiency Place under the tongue 1,000 mcg daily . 90 Tablet 3 03/27/2022 Active Toujeo Max SoloStar 300 UNIT/ML Subcutaneous Solution Pen-injector (Insulin Glargine (2 Unit Dial))Indications:DM (diabetes mellitus) type II, controlled, with peripheral vascular disorder (HCC) Inject 60 Units under the skin in the morning and 60 Units in the evening. Patient uses an insulin pump, but it failed this morning. Will get a new one on Sunday. 15 mL 1 10/20/2022 Active DexCalcivis G6 Sensor Use as directed. Change every 10 days. Supplied by [employer]: [phone] 0 Active Dexcom G6 Transmitter Use as directed. Change every 90 days. Supplied by [employer]: [phone] 0 Active Itaro Proposal Engineer Device Use as directed. Supplied by [employer]: [phone] 0 Active Fluticasone Propionate 50 MCG/ACT Nasal Suspension (Flonase)Indications :Chronic rhinitis Administer 2 Sprays into each nostril in the morning. 16 g 1 11/01/2022 Active Isosorbide Mononitrate ER 60 MG Oral Tablet Extended Release 24 Hour (Imdur) TAKE ONE TABLET BY MOUTH EVERY MORNING 90 Tablet 3 12/29/2022 4 Active Nitroglycerin 0.3 MG Sublingual Tablet Sublingual (Nitrostat) PLACE 1 TABLET UNDER THE TONGUE EVERY 5 MINUTES UP TO 3 DOSES NEEDED FOR CHEST PAIN. 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 135 Tablet 3 04/04/2023 Active Polyethylene Glycol 3350 17 GM/SCOOP Oral Powder (Miralax)Indications :Other constipation Mix 1/2 bottle into each of 2 gatorade 32 oz bottles. Drink according to your colonoscopy instructions. 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,Deep vein thrombosis (DVT) ([facility]) TAKE ONE TABLET TO ONE AND ONE-HALF TABLET BY MOUTH EVERY DAY DIRECTED BY [facility] CLINIC 135 Tablet 3 09/13/2023 5 Active Insulin Aspart 100 UNIT/ML Injection Solution (NovoLOG)Indications :Type 2 diabetes mellitus with foot ulcer, with long-term current use of insulin ([facility]),DM (diabetes mellitus) type II, controlled, with peripheral vascular disorder ([facility]) FOR USE WITH AN INSULIN PUMP, UP TO 310 UNITS DAILY- dose increase 300 mL 11 10/01/2023 Active Accu-Chek Guide In Vitro Strip (Glucose Blood)Indications:Ty pe 2 diabetes mellitus with foot ulcer, with long-term current use of insulin ([facility]),DM (diabetes mellitus) type II, controlled, with peripheral vascular disorder ([facility]) Use to test blood glucose 4 times daily. E11.9 400 Strip 3 10/04/2023 Active Accu-Chek Guide Me w/Device KitIndications:Type 2 diabetes mellitus with foot ulcer, with long-term current use of insulin ([facility]),DM (diabetes mellitus) type II, controlled, with peripheral vascular disorder ([facility]) Use as directed. 0 10/04/2023 Active Accu-Chek Softclix LancetsIndications:T ype 2 diabetes mellitus with foot ulcer, with long-term current use of insulin (HCC),DM (diabetes mellitus) type II, controlled, with peripheral vascular disorder (HCC) Use to test blood glucose 4 times daily. DX: E11.9 400 Each 3 10/04/2023 Active Aspirin 81 MG Oral Tablet Delayed Release Take 1 Tablet by mouth in the morning. 0 10/19/2023 Active Rosuvastatin Calcium 20 MG Oral Tablet (Crestor)Indications :Dyslipidemia, goal LDL below 70 Take 1 Tablet by mouth in the morning. 90 Tablet 3 10/25/2023 Active documented as of this encounter (statuses as [...] artery disease of n ative artery of [place] heart with stable angina pectoris 12/08/2020 History [...] Per Lipid Taxonomy. 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 Noted that after her procedure, the patient went into afib with rates into 120s and 130s. Bridging back with lovenox. CrCl 41 mL/min as of 11/13/23- Q12h dosing is still appropriate for her lovenox. Underwent JORGE with cardioversion 11/13/23- [facility] will plan to do weekly INR checks for one month. Patient Phone Numbers [facility] to confirm our appt on 11/21 and to notify patient that we will be doing weekly INRs x 1 month. Shanthi Franks, PharmD, BCACP Clinical Pharmacist Medication Therapy Disease Management 11/14/2023, 9:06 AM documented in this encounter Plan of Treatment Upcoming Encounters Date Type Department Care Team (Late st Contact Info) Description 11/22/2023 8:20 AM EDT Anticoagulation Pharmacy, [address] [address] [facility] [address] [place] [address] 11/27/2023 9:30 AM EDT Office Visit Podiatry [address] [place] [address] Kenny Archibald, JASMINE [facility] [place], [place] [id number] 12/11/2023 10:00 AM EDT Office Visit Cardiology, [facility] [address] [facility] [place] [address] Apple Durbin CRNP [address] [place] [address] 12/12/2023 2:30 PM EDT Anticoagulation Pharmacy, [place] [address] [place] [address] [facility] [address] [place] [facility] [place] [address] 12/12/2023 2:40 PM EDT Office Visit Pharmacy, [place] [address] [place] [address] [facility] [address] [place] [facility] [place] [address] 01/03/2024 1:00 PM EDT Office Visit Family Practice, [place] [address] [place] [facility] [place] [id number] Natalia Heller PA-C [address] [place] [address] Scheduled Procedures Name Priority Associated Diagnoses Date/Ti [...] 02/18/2019, 02/19/2018, Additional history exists COVID-19 Vaccine (2022-24 season) 2023 05/08/2022, 07/20/2021, 10/13/2020, Additional history [...] D LEVEL ONCE IN A LIFETIME-USE SMARTSET# 77480 Completed 06/18/2020, 07/25/2019, 05/20/2015, Additional history exists LUNG CANCER SCREENING - USE SMARTSET 13207 Completed 12/22/2022, 12/09/2021, 12/24/2020, Additional history exists [...] this encounter Medical Devices Implanted Type Area Batch Mixing Truck Driver Device Identifier Shelf Expiration Date Model / Serial / Lot Graft Cervical 6x8 [id number] - [id number] Implanted:Qt y: 2 on 08/21/2008 at [place] [facility] Tissue - Human Spine Cervical [employer] [id number] / / Screw Spine 14mm [id number] - [id number] Implanted:Qt y: 2 on 08/21/2008 at [place] [facility] [place] N/A: Spine Cervical [employer] CAR[employer] DEPUY [id number] / / Depuy [place] 14 Mm Sd Con Scr Implanted:Qt y: 2 on 08/21/2008 at [place] [facility] N/A: Spine Cervical [employer] DEPUY [id number] / / Description:Depuy skyline 14 mm SD con SCR 34 Mm Plate Implanted:Qt y: 1 on 08/21/2008 at [place] [facility] N/A: Spine Cervical / / Description:34 mm Depuy plat e 14 Mm Variable Rescue Implanted:Qt y: 2 on 08/21/2008 at [place] [facility] N/A: Spine Cervical / / Description:14 mm variable r escue Screw 3.5x14 Mntr Fa [id number] - [id number] Implanted:Qt y: 10 on 07/13/2010 at [place] [facility] N/A: Spine Cervical JNJ : ETHICON [employer]ATIONS [id number] / / Devaughn [id number] - [id number] Implanted:Qt y: 1 on 07/13/2010 at [place] [facility] N/A: Spine Cervical JNJ : ETH[employer]ON [employer]ATIONS [id number] / / Screw Inner Mntr [id number] - [id number] Implanted:Qt y: 8 on 07/13/2010 at [place] [facility] N/A: Spine Cervical JNJ : ETH[employer]ON [employer]ATIONS [id number] / / Nut Outer Xcon [id number] - [id number] Implanted:Qt y: 2 on 07/13/2010 at [place] [facility] N/A: Spine Cervical JNJ : [employer]ON [employer]ATIONS [id number] / / Screw Inner Xcon [id number] - [id number] Implanted:Qt y: 2 on 07/13/2010 at [place] [facility] N/A: Spine Cervical JNJ : ETH[employer]ON [employer]ATIONS [id number] / / Plate 35mm Xcon [id number] - [id number] Implanted:Qt y: 1 on 07/13/2010 at [place] [facility] N/A: Spine Cervical JNJ : ETHICON CARDI[employer]ATIONS [id number] / / documented as of this encounter Visit Diagnoses Diagnosis History of DVT (deep vein thrombosis)- Primary Personal history of venous thrombosis and embolism Chronic atrial fibrillation (HCC) Atrial fibrillation documented in this encounter Advance Directives Latest [...] the patient have Health Care Power of Seasonal Package Handler? No Code Status History Code Status Date [...] the patient have Health Care Power of Seasonal Package Handler? No Full Code 07/13/2010 12:29 PM 07/17/2010 4:03 PM Thi s order reflects the patients wishes and were consensually agreed upon. Question Answer Comments Discussion of Advance Directives occurred with: Not Discussed Does the patient have a Living Will? No Does the patient have Health Care Power of Seasonal Package Handler? No Care Teams Roofer Gypsum Relationship Specialty Start Date End Date Alfa Jaramillo MD [address] [facility] [place] [address] PCP - General 05/06/00 documented as of this encounter
--- OUTSIDE RECORDS SUMMARY | 2023-11-15 18:35 | External Medical Summary | Summary of Care ---
Author Name Unknown Organization [facility] Address [address] [facility] [address] Phone [phone] Care Team Providers Care Medical Practice Administrator Name Role Phone Alfa Jaramillo MD Primary Care Provider +1- [phone] Reason for Visit * Reason Onset Date Comments [facility]: Screening 11/13/2023 Encounter Details Date Type Department Care Team (Late st Contact Info) Description 11/13/2023 Telephone [facility], [facility] [address] [facility] [place] [id number] [facility], Nurse [facility] [address] [place] [id number] [facility]: Screening Allergies Active Allergy Reactions Criticality Noted Date Comments Alendronate Sodium 06/24/2012 Burning sensation and difficulty breathing Proton Pump Inhibitors Hives 02/20/2002 nexium documented as of this encounter (statuses as of 11/13/2023) Medications Medication Sig Dispensed Refills Start Date [...] on Sunday. 15 mL 1 10/20/2022 Active Dexcom G6 Sensor Use as directed. Change every 10 days. Supplied by [employer]: [phone] 0 Active Dexcom G6 Transmitter Use as directed. Change every 90 days. Supplied by [employer]: [phone] 0 Active Spinal Simplicity G6 Hand Router Operator Device Use as directed. Supplied by [employer]: [phone] 0 Active Fluticasone Propionate 50 MCG/ACT Nasal [...] Warfarin Sodium 5 MG Oral Tablet (Coumadin)Indication s:detention current use of anticoagulant therapy,Deep vein thrombosis (DVT) (HCC) TAKE ONE TABLET TO ONE AND ONE-HALF TABLET BY MOUTH EVERY DAY DIRECTED BY [facility]ADIN CLINIC 135 Tablet 3 09/13/2023 5 Active Insulin Aspart 100 UNIT/ML Injection Solution (NovoLOG)Indications :Type 2 diabetes mellitus with foot ulcer, with long-term current use of insulin ([facility]),DM (diabetes mellitus) type II, controlled, with peripheral vascular disorder ([facility]) FOR USE WITH AN INSULIN PUMP, UP TO 310 UNITS DAILY- dose increase 300 mL 11 10/01/2023 Active Accu-Chek Guide In Vitro Strip (Glucose Blood)Indications:Ty pe 2 diabetes mellitus with foot ulcer, with long-term current use of insulin ([facility]),DM (diabetes mellitus) type II, controlled, with peripheral vascular disorder ([facility]) Use to test blood glucose 4 times daily. E11.9 400 Strip 3 10/04/2023 Active Accu-Chek Guide Me w/Device KitIndications:Type 2 diabetes mellitus with foot ulcer, with long-term current use of insulin ([facility]),DM (diabetes mellitus) type II, controlled, with peripheral vascular disorder ([facility]) Use as directed. 0 10/04/2023 Active Accu-Chek [...] as of this encounter (statuses as of 11/13/2023) Active Problems Problem Noted Date Diagnosed Date Hypotension 11/12/2023 Atrial fibrillation with rapid ventricular respo nse 11/12/2023 Type 2 diabetes mellitus with foot ulcer (CODE) 09/19/2022 Gastro-esophageal reflux disease without esophag itis 03/27/2022 Major depressive disorder, recurrent, unspecifie d 02/10/2021 DM (diabetes mellitus) type II, controlled, with peripheral vascular disorder 12/08/2020 Coronary artery disease of n ative artery of [place] heart with stable angina pectoris 12/08/2020 History [...] Per Lipid Taxonomy. Cervical spinal stenosis 08/21/2008 detention current use of anticoagulant therapy 0 05/03/2005 documented as of this encounter (statuses as of 11/13/2023) Resolved Problems Problem Noted Date Diagnosed Date [...] as of this encounter (statuses as of 11/13/2023) Immunizations Name Administration Dates Next Due COVID-19 [...] No 05/02/2019 documented as of this encounter Miscellaneous Notes * Telephone Encounter - Pauline Isaacs LPN - 11/13/2023 6:20 PM EDT Graciela Mobley was referred as a potential candidate for enrollment for [facility]. A review of this chart was completed and: Graciela does not meet criteria for enrollment into [facility]. Referral Source: Monthly Proactive Eligibility List Referring care team was notified via : StepOut communication Pt was recently graduated from [employer] [facility] [facility] [facility] with no change in status documented in this encounter Plan of Treatment Upcoming Encounters Date Type Department Care Team (Late st Contact Info) Description 11/14/2023 5:10 PM EDT Anticoagulation Pharmacy, [place] [address] [place] [address] [facility] [address] [place] [address] 11/22/2023 8:20 AM EDT Anticoagulation Pharmacy, [place] [address] [place] [address] [facility] [address] [place] [address] 11/27/2023 9:30 AM EDT Office Visit Podiatry [address] [place] [address] Kenny Archibald, JASMINE [facility] [place] [address] 12/11/2023 10:00 AM EDT Office Visit Cardiology, [facility] [address] [place] [address] Apple Durbin CRNP [address] [place] [address] 12/12/2023 2:30 PM EDT Anticoagulation Pharmacy, [place] [address] [facility], [place] [address] [facility] [address] [facility], [place] [address] 12/12/2023 2:40 PM EDT Office Visit Pharmacy, [place] [address] [facility], [place] [address] [facility] [address] [facility], [place] [address] 01/03/2024 1:00 PM EDT Office Visit Family Practice, [place] [address] [facility] [id number] Natalia Heller PA-C [address] [facility] [place] [address] Scheduled Procedures Name Priority Associated Diagnoses Date/Ti [...] D LEVEL ONCE IN A LIFETIME-USE SMARTSET# 90661 Completed 06/18/2020, 07/25/2019, 05/20/2015, Additional history exists LUNG CANCER SCREENING - USE SMARTSET 77589 Completed 12/22/2022, 12/09/2021, 12/24/2020, Additional history exists [...] this encounter Medical Devices Implanted Type Area Propagator Device Identifier Shelf Expiration Date Model / Serial / Lot Graft Cervical 6x8 [id number] - [id number] Implanted:Qt y: 2 on 08/21/2008 at [place] [facility] Tissue - Human Spine Cervical [employer] [id number] / / Screw Spine 14mm [id number] - [id number] Implanted:Qt y: 2 on 08/21/2008 at [place] [facility] N/A: Spine Cervical CARSON [employer] CARSON DEPUY [id number] / / Depuy [place] 14 Mm Sd Con Scr Implanted:Qt y: 2 on 08/21/2008 at [place] [facility] N/A: Spine Cervical [employer] CAR[employer] DEPUY 60014 / / Description:Depuy skyline 14 mm SD con SCR 34 Mm Plate Implanted:Qt y: 1 on 08/21/2008 at [place] [facility] N/A: Spine Cervical / / Description:34 mm Depuy plat e 14 Mm Variable Rescue Implanted:Qt y: 2 on 08/21/2008 at [place] [facility] N/A: Spine Cervical / / Description:14 mm variable r escue Screw 3.5x14 Mntr Fa [id number] - [id number] Implanted:Qt y: 10 on 07/13/2010 at [place] [facility] N/A: Spine Cervical JNJ : ETHICON CARDIOVATIONS [id number] / / Devaughn [id number] - [id number] Implanted:Qt y: 1 on 07/13/2010 at [place] [facility] N/A: Spine Cervical JNJ : ETHICON CARDIOVATIONS [id number] / / Screw Inner Mntr [id number] - [id number] Implanted:Qt y: 8 on 07/13/2010 at [place] [facility] N/A: Spine Cervical JNJ : ETHICON CARDIOVATIONS [id number] / / Nut Outer Xcon [id number] - [id number] Implanted:Qt y: 2 on 07/13/2010 at [place] [facility] N/A: Spine Cervical JNJ : ETHICON CARDIOVATIONS [id number] / / Screw Inner Xcon [id number] - [id number] Implanted:Qt y: 2 on 07/13/2010 at [place] [facility] N/A: Spine Cervical JNJ : ETHICON CARDIOVATIONS [id number] / / Plate 35mm Xcon [id number] - [id number] Implanted:Qt y: 1 on 07/13/2010 at [place] [facility] N/A: Spine Cervical JNJ : ETHICON CARDIOVATIONS [id number] / / documented as of this encounter Advance Directives Latest Code Status on File Code Status Date Activated Date Inactivated Comments Full Code 11/12/2023 12:44 PM This order reflects the patients wishes and were consensually agreed upon. Question Answer Comments Discussion of Advance Directives occurred with: Not Discussed due to patient's condition Does the patient have a Living Will? No Does the patient have Health Care Power of Industrial Analyst? No Code Status History Code Status Date [...] the patient have Health Care Power of Industrial Analyst? No Full Code 07/13/2010 12:29 PM 07/17/2010 4:03 PM Thi s order reflects the patients wishes and were consensually agreed upon. Question Answer Comments Discussion of Advance Directives occurred with: Not Discussed Does the patient have a Living Will? No Does the patient have Health Care Power of Industrial Analyst? No Care Teams Medical Practice Administrator Relationship Specialty Start Date End Date Alfa Jaramillo MD [address] [facility] [place] [address] PCP - General 05/06/00 documented as of this encounter
--- OUTSIDE RECORDS SUMMARY | 2023-11-15 18:35 | External Medical Summary | Summary of Care ---
Author Name Unknown Organization [facility] Address [address] [facility] [place] [address] Phone [phone] Care Team Providers Care Manager Site Name Role Phone Alfa Jaramillo MD Primary Care Provider +1- [phone] Encounter Details Date Type Department Care Team (Late st Contact Info) Description 11/13/2023 Population Health External Data Unspecified Department Allergies Active Allergy Reactions Criticality Noted Date Comments Alendronate Sodium 06/24/2012 Burning sensation and difficulty breathing Proton Pump Inhibitors Hives 02/20/2002 nexium documented as of this encounter (statuses as of 11/13/2023) Medications Medication Sig Dispensed Refills Start Date End Date Status INSULIN SYRINGE 30G X 1/2" 0.5 ML MISCIndications:DM type 2, goal A1c below 7 use for injections daily 3 boxes 3 05/27/2007 Suspended Additional Information albuterol (PROAIR HFA) 108 (90 BASE) MCG/ACT inhalerIndications: Bronchitis, complicated Inhale 2 Puffs by mouth 4 times a day. May substitute proventil or ventolin based on formulary 1 Inhaler 1 04/18/2018 Suspended Additional Information Cholecalciferol 25 MCG (1000 UT) Capsule Take 1 Capsule by mouth in the morning. 0 Suspended Multiple Vitamin (DAILY VALUE MULTIVITAMIN) Tablet Take 1 Tablet by mouth in the morning. 0 Suspended traZODone HCl 50 MG Oral Tablet (DESYREL)Indication s:Primary insomnia TAKE 1 TABLET BY MOUTH EVERYDAY AT BEDTIME 90 Tab 3 06/08/2020 Suspended Additional Information B-12-SL 1000 MCG Sublingual Tablet Sublingual (Cyanocobalamin)Ind ications:Malaise and fatigue,B12 deficiency Place under the tongue 1,000 mcg daily . 90 Tablet 3 03/27/2022 Suspended Additional Information Saima Gudino SoloStar 300 UNIT/ML Subcutaneous Solution Pen-injector (Insulin Glargine (2 Unit Dial))Indications:D M (diabetes mellitus) type II, controlled, with peripheral vascular disorder (HCC) Inject 60 Units under the skin in the morning and 60 Units in the evening. Patient uses an insulin pump, but it failed this morning. Will get a new one on Sunday. 15 mL 1 10/20/2022 Suspended Additional Information Dexcom G6 Sensor Use as directed. Change every 10 days. Supplied by [employer]: [phone] Suspended DexStreetOwl G6 Transmitter Use as directed. Change every 90 days. Supplied by [employer]: [phone] Suspended DexStreetOwl G6 Molecular Geneticist Device Use as directed. Supplied by [employer]: [phone] Suspended Fluticasone Propionate 50 MCG/ACT Nasal Suspension (Flonase)Indication s:Chronic rhinitis Administer 2 Sprays into each nostril in the morning. 16 g 1 11/01/2022 Suspended Additional Information Isosorbide Mononitrate ER 60 MG Oral Tablet Extended Release 24 Hour (Imdur) TAKE ONE TABLET BY MOUTH EVERY MORNING 90 Tablet 3 12/29/2022 12/29/19 24 Suspended Additional Information Nitroglycerin 0.3 MG Sublingual Tablet Sublingual (Nitrostat) PLACE 1 TABLET UNDER THE TONGUE EVERY 5 MINUTES UP TO 3 DOSES NEEDED FOR CHEST PAIN. 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 135 Tablet 3 04/04/2023 Suspended Additional Information Polyethylene Glycol 3350 17 GM/SCOOP Oral Powder (Miralax)Indication s:Other constipation Mix 1/2 bottle into each of 2 gatorade 32 oz bottles. Drink according to your colonoscopy instructions. 255 g 0 04/04/2023 Suspended Additional Information Pregabalin 150 MG Oral Capsule (Lyrica)Indications :Diabetic polyneuropathy associated with type 1 diabetes mellitus (HCC) TAKE ONE CAPSULE BY MOUTH TWICE A DAY 180 Capsule 1 08/20/2023 02/19/20 24 Suspended Additional Information Warfarin Sodium 5 MG Oral Tablet (Coumadin)Indicatio ns:long-term current use of anticoagulant therapy,Deep vein thrombosis (DVT) ([facility]) TAKE ONE TABLET TO ONE AND ONE-HALF TABLET BY MOUTH EVERY DAY DIRECTED BY [facility]ADIN CLINIC 135 Tablet 3 09/13/2023 09/12/19 25 Suspended Additional Information Insulin Aspart 100 UNIT/ML Injection Solution (NovoLOG)Indication s:Type 2 diabetes mellitus with foot ulcer, with long-term current use of insulin ([facility]),DM (diabetes mellitus) type II, controlled, with peripheral vascular disorder ([facility]) FOR USE WITH AN INSULIN PUMP, UP TO 310 UNITS DAILY- dose increase 300 mL 11 10/01/2023 Suspended Additional Information Accu-Chek Guide In Vitro Strip (Glucose Blood)Indications:T ype 2 diabetes mellitus with foot ulcer, with long-term current use of insulin ([facility]),DM (diabetes mellitus) type II, controlled, with peripheral vascular disorder ([facility]) Use to test blood glucose 4 times daily. E11.9 400 Strip 3 10/04/2023 Suspended Additional Information Accu-Chek Guide Me w/Device KitIndications:Type 2 diabetes mellitus with foot ulcer, with long-term current use of insulin ([facility]),DM (diabetes mellitus) type II, controlled, with peripheral vascular disorder ([facility]) Use as directed. 0 10/04/2023 Susp ended Accu-Chek Softclix LancetsIndications: Type 2 diabetes mellitus with foot ulcer, with long-term current use of insulin ([facility]),DM (diabetes mellitus) type II, controlled, with peripheral vascular disorder ([facility]) Use to test blood glucose 4 times daily. DX: E11.9 400 Each 3 10/04/2023 Suspended Additional Information Aspirin 81 MG Oral Tablet Delayed Release Take 1 Tablet by mouth in the morning. 0 10/19/2023 Suspended Additional Information Digoxin 125 MCG Oral Tablet (Lanoxin)Indication s:Permanent atrial fibrillation (HCC) Take 1 Tablet by mouth in the morning. 90 Tablet 3 10/25/2023 Suspended Additional Information Rosuvastatin Calcium 20 MG Oral Tablet (Crestor)Indication s:Dyslipidemia, goal LDL below 70 Take 1 Tablet by mouth in the morning. 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 0 05/03/2005 [...] No 05/02/2019 documented as of this encounter Plan of Treatment Upcoming Encounters Date Type Department Care Team (Late st Contact Info) Description 11/22/2023 8:20 AM EDT [facility] [place] [address] [facility] [address] [facility] [address] [facility] [address] 11/27/2023 9:30 AM EDT Office Visit Podiatry [address] [place] [phone] Kenny Archibald, [facility] [address] [place] [address] 12/11/2023 10:00 AM EDT Office Visit Cardiology, [facility] [address] [place] [address] Apple Durbin CRNP [address] [place] [address] 12/12/2023 2:30 PM EDT Anticoagulation Pharm[facility], [place] [address] [facility] [address] [facility] [address] [facility] [address] 12/12/2023 2:40 PM EDT Office Visit Pharmacy, [place] [address] [facility] [address] [facility] [address] [facility] [address] 01/03/2024 1:00 PM EDT Office Visit [facility], [place] [address] [place] [facility] [place] [address] Natalia Heller PA-C [address] [place] [facility] [place] [address] Scheduled Procedures Name Priority Associated Diagnoses Date/Ti [...] 07/05/2023, Additional history exists Mammogram 06/07/2024 06/07/2023, 11/0 08/2021, 06/06/2022, Additional history exists DTaP,Tdap,and Td Vaccines (2 - Td or Tdap) 09/15/2024 09/15/2014, 07/15/2008, 02/09/1998 O2 ASSESSMENT COMPLETED IN PAST YEAR FOR COPD 09/18/2024 09/18/2023 DIG LEVEL FOR MEDICATION MONITORING YEARLY 10/18/2024 10/19/2023, 07/05/2023, 09/19/2022, Additional history exists GFR 11/12/2024 11/13/2023, 04/0 03/2024, 10/19/2023, Additional history exists DXA Scan 02/19/2025 02/19/2023, 02/03, 05/12/2020, Additional history exists Colonoscopy 09/18/2033 09/18/2023, 09/06, 11/16/2020, Additional history exists Colorectal Cancer Screening 09/18/2033 Pneumococcal Vaccine: 65+ Years Completed 01/20/2016, 01/15/2015, 09/18/2006, Additional history exists VITAMIN D LEVEL ONCE IN A LIFETIME-USE SMARTSET# [id number] Completed 06/18/2020, 07/25/2019, 05/20/2015, Additional history exists LUNG CANCER SCREENING - USE SMARTSET 39366 Completed 12/22/2022, 12/09/2021, 12/24/2020, Additional history exists [...] this encounter Medical Devices Implanted Type Area Industrial Gas Servicer Supervisor Device Identifier Shelf Expiration Date Model / Serial / Lot Graft Cervical 6x8 [id number] - [id number] Implanted:Qt y: 2 on 08/21/[address] [facility] Tissue - Human Spine Cervical [employer] [id number] / / Screw Spine 14mm [id number] - [id number] Implanted:Qt y: 2 on 08/21/[address] [facility] N/A: Spine Cervical CARSON [employer] CARSON DEPUY 8-50-014 / / Depuy [place] 14 Mm Sd Con Scr Implanted:Qt y: 2 on 08/21/[address] [facility] N/A: Spine Cervical CARSON [employer] CARSON DEPUY 1868-60-014 / / Description:Depuy skyline 14 mm SD con SCR 34 Mm Plate Implanted:Qt y: 1 on 08/21/[address] [facility] N/A: Spine Cervical / / Description:34 mm Depuy plat e 14 Mm Variable Rescue Implanted:Qt y: 2 on 08/21/[address] [facility] N/A: Spine Cervical 014 / / Description:14 mm variable r escue Screw 3.5x14 Mntr Fa [id number] - [id number] Implanted:Qt y: 10 on 07/13/[address] [facility] N/A: Spine Cervical JNJ : ETHICON C[employer]ATIONS [id number] / / Devaughn [id number] - [id number] Implanted:Qt y: 1 on 07/13/[address] [facility] N/A: Spine Cervical JNJ : ETHICON CARDIOVATIONS [id number] / / Screw Inner Mntr [id number] - [id number] Implanted:Qt y: 8 on 07/13/[address] [facility] N/A: Spine Cervical JNJ : ETH[employer]ON CARDIOVATIONS [id number] / / Nut Outer Xcon [id number] - [id number] Implanted:Qt y: 2 on 07/13/[address] [facility] N/A: Spine Cervical JNJ : ETH[employer]ON CARDIOVATIONS [id number] / / Screw Inner Xcon [id number] - [id number] Implanted:Qt y: 2 on 07/13/[address] [facility] N/A: Spine Cervical JNJ : ETH[employer]ON C[employer]ATIONS [id number] / / Plate 35mm Xcon [id number] - [id number] Implanted:Qt y: 1 on 07/13/[address] [facility] N/A: Spine Cervical JNJ : ETH[employer]ON C[employer]ATIONS [id number] / / documented as of this encounter [...] the patient have Health Care Power of Masticator? No Code Status History Code Status Date [...] the patient have Health Care Power of Masticator? No Full Code 07/13/2010 12:29 PM 07/17/2010 4:03 PM Thi s order reflects the patients wishes and were consensually agreed upon. Question Answer Comments Discussion of Advance Directives occurred with: Not Discussed Does the patient have a Living Will? No Does the patient have Health Care Power of Masticator? No Care Teams Manager Site Relationship Specialty Start Date End Date Alfa Jaramillo MD [address] [place] [facility] [place] [address] PCP - General 05/06/00 documented as of this encounter
--- OUTSIDE RECORDS SUMMARY | 2023-11-15 18:35 | External Medical Summary ---
Author Name Unknown Address Unknown Organization : Laboratory Report Ordering Provider Test Date Status ARABELLA MASON 11/13/2023 11:05:32 Final Observation Date Value Abnormality Reference (Units ) Status Glucose Point of Care 11/13/2023 11:05:32 311 Above high normal 70-120 (mg/dL) Final Performing Location
--- OUTSIDE RECORDS SUMMARY | 2023-11-15 18:35 | External Medical Summary | Summary of Care ---
Author Name Unknown Organization [facility] Address [address] [facility] [place] [address] Phone [phone] Care Team Providers Care Amusement Park Ride Mechanic Name Role Phone Wayne Spencer MD Primary Care Provider +1- [phone] Reason for Visit * Reason Onset Date Comments Hospital Follow-Up 11/12/2023 Encounter Details Date Type Department Care Team (Late st Contact Info) Description 11/12/[address] [facility] [address] [place] [address] Wayne Spencer MD [address] [place] [address] Hospital Follow-Up Allergies Active Allergy Reactions Criticality Noted Date [...] Tablet 3 03/27/2022 Suspended Additional Information Saima Shahab SoloStar 300 UNIT/ML Subcutaneous Solution Pen-injector (Insulin Glargine (2 Unit Dial))Indications:D M (diabetes mellitus) type II, controlled, with peripheral vascular disorder (HCC) Inject 60 Units under the skin in the morning and 60 Units in the evening. Patient uses an insulin pump, but it failed this morning. Will get a new one on Sunday. 15 mL 1 10/20/2022 Suspended Additional Information DexTheraTorr Medical G6 Sensor Use as directed. Change every 10 days. Supplied by [employer]: [phone] Suspended DexTheraTorr Medical G6 Transmitter Use as directed. Change every 90 days. Supplied by [employer]: [phone] Suspended [employer] Systems Rn Labor Delivery Device Use as directed. 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,Deep vein thrombosis (DVT) (HCC) TAKE ONE TABLET TO ONE AND ONE-HALF TABLET BY MOUTH EVERY DAY DIRECTED BY [facility]ADIN CLINIC 135 Tablet 3 09/13/2023 09/12/19 25 Suspended Additional Information Insulin Aspart 100 UNIT/ML Injection Solution (NovoLOG)Indication s:Type 2 diabetes mellitus with foot ulcer, with long-term current use of insulin ([facility]),DM (diabetes mellitus) type II, controlled, with peripheral vascular disorder ([facility]) FOR USE WITH AN INSULIN PUMP, UP TO 310 UNITS DAILY- dose increase 300 mL 11 10/01/2023 Suspended Additional Information Accu-Chek Guide In Vitro Strip (Glucose Blood)Indications:T ype 2 diabetes mellitus with foot ulcer, with long-term current use of insulin ([facility]),DM (diabetes mellitus) type II, controlled, with peripheral vascular disorder ([facility]) Use to test blood glucose 4 times daily. E11.9 400 Strip 3 10/04/2023 Suspended Additional Information Accu-Chek Guide Me w/Device KitIndications:Type 2 diabetes mellitus with foot ulcer, with long-term current use of insulin ([facility]),DM (diabetes mellitus) type II, controlled, with peripheral vascular disorder ([facility]) Use as directed. 0 10/04/2023 Susp [...] artery disease of n ative artery of [place] heart with stable angina pectoris 12/08/2020 History [...] Per Lipid Taxonomy. 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 11/13/2023 * Telephone Encounter - Blank Rubalcava OSA - 11/12/2023 8:03 PM EDT Patient Name: LOUIS MOBLEY([id number]) Sex: Female : 1950 PCP: WAYNE SPENCER Center: [facility] Types of orders made on 11/12/2023: Communication, IP Discharge, IP Post Discharge , Lab, Medications, Nursing, Procedures Or emi Date:11/12/2023 Ordering User:MARILIN GIL [[id number]] Attending Provider:Huey Barrera MD [[id number]] Authorizing Provider: Marilin Gil CRNP [[id number]] Department:CRS WAITING IP [facility][[id number]] Order Specific Information Order: RETURN APPT [CUSTOM: [id number]] Order #: [id number] Priority: Routine Class: Nursing Unit Department (Single Entry) -> Family Practice Appt Needed Within: (Specify # of Days, Weeks, Months) -> 1 Mo Provider -> WAYNE SPENCER Released on: 11/12/2023 12:01 PM Priority: Routine Class: Nursing Unit Department (Single Entry) -> Family Practice Appt Needed Within: (Specify # of Days, Weeks, Months) -> 1 Mo Provider -> WAYNE SPENCER Released on: 11/12/2023 12:01 PM documented in this encounter Plan of Treatment Upcoming Encounters Date Type Department Care Team (Late st Contact Info) Description 11/22/2023 8:20 AM EDT [facility]tico[facility] Pharmacy, [place] [address] [facility] [address] [facility] [address] [facility] [address] 11/27/2023 9:30 AM EDT Office Visit Podiatry [address] [place] [phone] Kenny Archibald, [facility] [address] [place] [address] 12/11/2023 10:00 AM EDT Office Visit Cardiology, [facility] [address] [facility] [place] [address] Apple Durbin CRNP [address] [facility] [place] [address] 12/12/2023 2:30 PM EDT Anticoagulation Pharmacy, [place] [address] [facility] [address] [facility] [address] [facility] [address] 12/12/2023 2:40 PM EDT Office Visit Pharmacy, [place] [address] [facility] [address] [facility] [address] [facility] [address] 01/03/2024 1:00 PM EDT Office Visit [facility], [place] [address] [facility] [place] [phone] Natalia Heller PA-C [address] [facility] [address] Scheduled Procedures Name Priority Associated Diagnoses Date/Ti [...] 09/19/2022, Additional history exists GFR 11/12/2024 11/13/2023, /03/2024, 10/19/2023, Additional history exists DXA Scan 02/19/2025 02/19/2023, 02/03, 05/12/2020, Additional history exists Colonoscopy 09/18/2033 09/18/2023, 09/06, 11/16/2020, Additional history exists Colorectal Cancer Screening 09/18/2033 Pneumococcal Vaccine: 65+ Years Completed 01/20/2016, 01/15/2015, 09/18/2006, Additional history exists VITAMIN D LEVEL ONCE IN A LIFETIME-USE SMARTSET# [id number] Completed 06/18/2020, 07/25/2019, 05/20/2015, Additional history exists LUNG CANCER SCREENING - USE SMARTSET 65572 Completed 12/22/2022, 12/09/2021, 12/24/2020, Additional history exists [...] this encounter Medical Devices Implanted Type Area Bandoleer Straightener Stamper Device Identifier Shelf Expiration Date Model / Serial / Lot Graft Cervical 6x8 [id number] - [id number] Implanted:Qt y: 2 on 08/21/[address] [facility] Tissue - Human Spine Cervical [employer] [id number] / / Screw Spine 14mm 1868-50-014 - [id number] Implanted:Qt y: 2 on 08/21/[address] [facility] N/A: Spine Cervical CARSON [employer] CARSON DEPUY 186-50-014 / / Depuy Tiger 14 Mm Sd Con Scr Implanted:Qt y: 2 on 08/21/[address] [facility] N/A: Spine Cervical CAR[employer] CAR[employer] DEPUY / / Description:Depuy skyline 14 mm SD con SCR 34 Mm Plate Implanted:Qt y: 1 on 08/21/[address] [facility] N/A: Spine Cervical / / Description:34 mm Depuy plat e 14 Mm Variable Rescue Implanted:Qt y: 2 on 08/21/[address] [facility] N/A: Spine Cervical / / Description:14 mm variable r escue Screw 3.5x14 Mntr Fa [id number] - [id number] Implanted:Qt y: 10 on 07/13/[address] [facility] N/A: Spine Cervical JNJ : ETHICON CARDIOVATIONS [id number] / / Devaughn [id number] - [id number] Implanted:Qt y: 1 on 07/13/[address] [facility] N/A: Spine Cervical JNJ : ETHICON CARDIOVATIONS [id number] / / Screw Inner Mntr [id number] - [id number] Implanted:Qt y: 8 on 07/13/[address] [facility] N/A: Spine Cervical JNJ : ETHICON CARDIOVATIONS [id number] / / Nut Outer Xcon [id number] - [id number] Implanted:Qt y: 2 on 07/13/[address] [facility] N/A: Spine Cervical JNJ : ETH[employer]ON CARDIOVATIONS [id number] / / Screw Inner Xcon [id number] - [id number] Implanted:Qt y: 2 on 07/13/[address] [facility] N/A: Spine Cervical JNJ : ETH[employer]ON CARDIOVATIONS [id number] / / Plate 35mm Xcon [id number] - [id number] Implanted:Qt y: 1 on 07/13/[address] [facility] N/A: Spine Cervical JNJ : ETHICON CARDIOVATIONS [id number] / / documented as of this encounter [...] the patient have Health Care Power of Staff Therapist? No Code Status History Code Status Date [...] the patient have Health Care Power of Staff Therapist? No Full Code 07/13/2010 12:29 PM 07/17/2010 4:03 PM Thi s order reflects the patients wishes and were consensually agreed upon. Question Answer Comments Discussion of Advance Directives occurred with: Not Discussed Does the patient have a Living Will? No Does the patient have Health Care Power of Staff Therapist? No Care Teams Amusement Park Ride Mechanic Relationship Specialty Start Date End Date Wayne Spencer MD [address] [place] [address] PCP - General 05/06/00 documented as of this encounter
--- OUTSIDE RECORDS SUMMARY | 2023-11-15 18:35 | External Medical Summary ---
Author Name Unknown Address Unknown Organization [id number]:[facility] [place] [address] [place] [address] Laboratory Report Ordering Provider Test Date Status ARIELLE SAHU 11/13/2023 04:31:00 Final Warfarin Therapy
INR: 2 .0-3.0 conventional anticoagulation
INR: 2.5- 3.5 high intensity anticoagulation Observation Date Value Abnormality Reference (Units ) Status PT 11/13/2023 04:31:00 15.6 Above high normal 11 .6-15.2 (seconds) Final INR 11/13/2023 04:31:00 1.2 0.8-1.2 Final Performing [address] [facility] [place] [address] [place] [address]
--- OUTSIDE RECORDS SUMMARY | 2023-11-15 18:35 | External Medical Summary ---
Author Name Unknown Address Unknown Organization [id number]:[facility] [place] [address] [facility] [place] [address] Laboratory Report Ordering Provider Test Date Status GEN THIENDY 11/13/2023 04:31:00 Final Observation Date Value Abnormality Reference (Units ) Status Triglyceride 11/13/2023 04:31:00 125 <=174 ( mg/dL) Final Triglyceride Reference Range s (mg/dL):
<150 Acceptable
150-174 Borderline high
175-499 High
>=500 Very high Cholesterol 11/13/2023 04:31:00 110 <200 (mg /dL) Final Total Cholesterol Reference Ranges (mg/dL):
<200 Desirable
200-239 Borderline high
>=240 High HDL 11/13/2023 04:31:00 34 Below low normal >49 (mg/dL) Final HDL Cholesterol Reference Ra nges (mg/dL):
>=60 High (Desirable)
<50 Low (Undesirable) For Females
<40 Low (Undesirable) For Males NON-HDL CHOLESTEROL 11/13/2023 04:31:00 76 <=159 (mg/dL) Final Non-HDL Cholesterol Referenc e Range (mg/dL):
<100 Target level for high risk ASCVD patient
<130 Optimal for general population
130-159 Near optimal for general population
160-189 Borderline High
190-219 High
>=220 Very High LDL, (calculated) 11/13/2023 04:31:00 51 <= 129 (mg/dL) Final LDL Cholesterol Reference Ra nges (mg/dL):
<70 Target level for high risk ASCVD patient
<100 Optimal for general population
100-129 Near optimal for general population
130-159 Borderline high
160-189 High
>=190 Very high Performing Location [facility] [place] [address] [facility] [address]
--- OUTSIDE RECORDS SUMMARY | 2023-11-15 18:35 | External Medical Summary ---
Author Name Unknown Address Unknown Organization [id number]:[facility]ORY [facility] [place] - [address] [place] [address] Laboratory Report Ordering Provider Test Date Status KATIE NEUMANN 11/13/2023 04:31:00 Final Observation Date Value Abnormality Reference (Units ) Status WBC, Total 11/13/2023 04:31:00 7.57 4.00-10.80 (K/uL) Final RBC 11/13/2023 04:31:00 3.94 3.85-5.15 (M/uL) Final Hemoglobin 11/13/2023 04:31:00 11.8 Below low normal 12.0-15.3 (g/dL) Final HCT 11/13/2023 04:31:00 36.9 36.0-45.2 (%) Final MCV 11/13/2023 04:31:00 93.7 81.5-97.5 (fL) Final MCH 11/13/2023 04:31:00 29.9 27.0-34.0 (pg) Final MCHC 11/13/2023 04:31:00 32.0 32.0-36.0 (g/dL) Final RDW 11/13/2023 04:31:00 15.9 11.5-15.5 (%) Final Platelets 11/13/2023 04:31:00 141 140-400 (K/uL) Final MPV 11/13/2023 04:31:00 11.4 6.6-11.1 (fL) Final Nucleated erythrocytes/100 leukocytes [Ratio] in Blood by Automated count 11/13/2023 04:31:00 0 <=0 (/100 WBCs) Final Performing Location LABORATORY [facility] [place] - [address] [place] [address]
--- OUTSIDE RECORDS SUMMARY | 2023-11-15 18:35 | External Medical Summary ---
Author Name Unknown Address Unknown Organization K01:[facility] [place] [facility] [address] [place] [address] Laboratory Report Ordering Provider Test Date Status ABBEY MENENDEZ 11/12/2023 09:25:06 Final Observation Date Value Abnormality Reference (Units ) Status BUN 11/12/2023 09:25:06 18 6-20 (mg/dL) Final Creatinine 11/12/2023 09:25:06 1.1 Above high normal 0.5-1.0 (mg/dL) Final Glomerular filtration rate/1.73 sq M.predicted [Volume Rate/Area] in Serum, Plasma or Blood by Creatinine-based formula (CKD-EPI) 11/12/2023 09:25:06 55 Below low normal >=60 (mL/min) Final eGFR is calculated based on the CKD-EPI 2020 equation Sodium 11/12/2023 09:25:06 139 135-146 (m mol/L) Final Potassium 11/12/2023 09:25:06 3.7 3.5-5.1 (m mol/L) Final Cl 11/12/2023 09:25:06 100 98-107 (mm ol/L) Final CO2 11/12/2023 09:25:06 25 22-32 (mmo l/L) Final Anion gap 11/12/2023 09:25:06 14 7-15 (mmol /L) Final Glucose 11/12/2023 09:25:06 303 Above high normal 70 -120 (mg/dL) Final Calcium 11/12/2023 09:25:06 9.7 8.4-10.2 ( mg/dL) Final Albumin 11/12/2023 09:25:06 3.8 3.8-5.0 (g /dL) Final Phosphate 11/12/2023 09:25:06 2.9 2.5-4.8 (m g/dL) Final Performing Location [facility] [place] [address] [place] [address]
--- OUTSIDE RECORDS SUMMARY | 2023-11-15 18:35 | External Medical Summary ---
Author Name Unknown Address Unknown Organization K01:[facility]ATORY [facility] [place] - [address] [facility] [address] Laboratory Report Ordering Provider Test Date Status KATIE NEUMANN 11/12/2023 14:04:21 Final SCREENING Observation Date Value Abnormality Reference (Units ) Status SARS Coronavirus 2 11/12/2023 14:04:21 Negative N egative Final 2019 Novel Coronavirus not d etected.

This express test was developed and its performance characteristics determined by [facility]. It has not been cleared or approved [...] (RT-PCR) test, or a Centers for Disease Control-acceptable equivalent. The test is performed in a high complexity Clinical Laboratory Improvement Amendments-(CLIA) certified laboratory. The test is acceptable for SARS-CoV-2 diagnosis, surveillance, and travel within the [place] and to most countries. Please check with local testing authorities about requirements before travel.

The validation of bronchial specimens, tracheal aspirates, and sputum for this assay was developed and performance characteristics determined by [facility]. The validation of alternate specimen types has not been cleared or approved by the U.S. Food and Drug Administration (FDA). It has been determined that such clearance is not necessary. Performing Location LABORATORY [facility] [place] - [address] [facility] [address]
--- OUTSIDE RECORDS SUMMARY | 2023-11-15 18:35 | External Medical Summary ---
Author Name Unknown Address Unknown Organization : Laboratory Report Ordering Provider Test Date Status ARABELLA MASON 11/12/2023 17:45:28 Final Observation Date Value Abnormality Reference (Units ) Status Glucose Point of Care 11/12/2023 17:45:28 430 Above high normal 70-120 (mg/dL) Final Performing Location
--- OUTSIDE RECORDS SUMMARY | 2023-11-15 18:35 | External Medical Summary ---
Author Name Unknown Address Unknown Organization K01:[facility]ORY [facility] [place] - [address] [place] [address] Laboratory Report Ordering Provider Test Date Status ABBEY MENENDEZ 11/12/2023 09:25:06 Final Warfarin Therapy
INR: 2 .0-3.0 conventional anticoagulation
INR: 2.5- 3.5 high intensity anticoagulation Observation Date Value Abnormality Reference (Units ) Status PT 11/12/2023 09:25:06 14.9 11.6-15.2 (seconds) Final INR 11/12/2023 09:25:06 1.2 0.8-1.2 Final Performing Location LAB[facility]ORY [facility] [place] - [address] [place] [address]
--- OUTSIDE RECORDS SUMMARY | 2023-11-15 18:35 | External Medical Summary ---
Author Name Unknown Address Unknown Organization K01:[facility]ATORY [facility] [place] - [address] [facility] [address] Laboratory Report Ordering Provider Test Date Status ABBEY MENENDEZ 11/12/2023 09:25:06 Final Observation Date Value Abnormality Reference (Units ) Status WBC, Total 11/12/2023 09:25:06 14.13 Above high normal 4.00-10.80 (K/uL) Final RBC 11/12/2023 09:25:06 4.44 3.85-5.15 (M/uL) Final Hemoglobin 11/12/2023 09:25:06 13.3 12.0-15.3 (g/dL) Final HCT 11/12/2023 09:25:06 41.0 36.0-45.2 (%) Final MCV 11/12/2023 09:25:06 92.3 81.5-97.5 (fL) Final MCH 11/12/2023 09:25:06 30.0 27.0-34.0 (pg) Final MCHC 11/12/2023 09:25:06 32.4 32.0-36.0 (g/dL) Final RDW 11/12/2023 09:25:06 16.0 11.5-15.5 (%) Final Platelets 11/12/2023 09:25:06 205 140-400 (K/uL) Final MPV 11/12/2023 09:25:06 11.7 6.6-11.1 (fL) Final Nucleated erythrocytes/100 leukocytes [Ratio] in Blood by Automated count 11/12/2023 09:25:06 0 <=0 (/100 WBCs) Final Performing Location LABORATORY [facility] [place] - [address] [place] [address]
--- OUTSIDE RECORDS SUMMARY | 2023-11-15 18:35 | External Medical Summary ---
Author Name Unknown Address Unknown Organization : Laboratory Report Ordering Provider Test Date Status ARABELLA MASON 11/12/2023 21:38:04 Final Observation Date Value Abnormality Reference (Units ) Status Glucose Point of Care 11/12/2023 21:38:04 464 Above high normal 70-120 (mg/dL) Final Performing Location
--- OUTSIDE RECORDS SUMMARY | 2023-11-15 18:35 | External Medical Summary | Summary of Care ---
Author Name Unknown Organization [facility] Address [address] [facility] [place] [address] Phone [phone] Care Team Providers Care Hydrologist Name Role Phone Alfa Jaramillo MD Primary Care Provider [phone] Encounter Details Date Type Department Care Team (Late st Contact Info) Description 10/30/2023 Orders Only PATIENT PORTAL DO NOT DELETE THIS DEPT USED BY [place] [id number] Allergies Active Allergy Reactions Criticality Noted Date Comments Alendronate Sodium 06/24/2012 Burning sensation and difficulty breathing Proton Pump Inhibitors Hives 02/20/2002 nexium documented as of this encounter (statuses as of 10/30/2023) Medications Medication Sig Dispensed Refills Start Date End Date Status INSULIN SYRINGE 30G X 1/2" 0.5 ML MISCIndications:DM type 2, goal A1c below 7 use for injections daily 3 boxes 3 05/27/2007 Active B-D ULTRAFINE III (5MM) SHORT PEN MISCIndications:DM type 2, goal A1C 7-8 use as directed with sliding scale 500 Pen 3 04/22/2012 Active Additional Information Patient not taking.Reported on 10/19/2023 INSULIN SYRINGE-NEEDLE U-100 30G X 1/2" 1 ML MISCIndications:DM type 1 causing neurological disease, 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 May substitute proventil or ventolin based on formulary 1 Inhaler 1 04/18/2018 Active Calcium Carbonate Antacid 500 MG chewable tablet Take 1 Tablet by mouth in the morning and 1 Tablet before bedtime. 0 Active Cholecalciferol 25 MCG (1000 UT) Capsule [...] directed. Change every 10 days. Supplied by [employer]: [phone] 0 Active Dexcom G6 Transmitter Use as directed. Change every 90 days. Supplied by [employer]: [phone] 0 Active Dexcom G6 Boiler Installer Device Use as directed. Supplied by [employer]: [phone] 0 Active Fluticasone Propionate 50 MCG/ACT Nasal Suspension (Flonase)Indications :Chronic rhinitis Administer 2 Sprays into each nostril in the morning. 16 g 1 11/01/2022 Active Isosorbide Mononitrate ER 60 MG Oral Tablet Extended Release 24 Hour (Imdur) TAKE ONE TABLET BY MOUTH EVERY MORNING 90 Tablet 3 12/29/2022 Active Nitroglycerin 0.3 MG Sublingual Tablet Sublingual [...] DAY 180 Tablet 3 11/16/2022 4 Active Ozempic (2 MG/DOSE) 8 MG/3ML Subcutaneous Solution Pen-injector (Semaglutide (2 MG/DOSE)) Inject under the skin. 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,Deep vein thrombosis (DVT) ([facility]) TAKE ONE TABLET TO ONE AND ONE-HALF TABLET BY MOUTH EVERY DAY DIRECTED BY [facility] 135 Tablet 3 09/13/2023 5 Active Insulin Aspart 100 UNIT/ML Injection Solution (NovoLOG)Indications :Type 2 diabetes mellitus with foot ulcer, with long-term current use of insulin ([facility]),DM (diabetes mellitus) type II, controlled, with peripheral vascular disorder ([facility]) FOR USE WITH AN INSULIN PUMP, UP TO 310 UNITS DAILY- dose increase 300 mL 11 10/01/2023 Active Accu-Chek Guide In Vitro Strip (Glucose Blood)Indications:Ty pe 2 diabetes mellitus with foot ulcer, with long-term current use of insulin ([facility]),DM (diabetes mellitus) type II, controlled, with peripheral vascular disorder ([facility]) Use to test blood glucose 4 times daily. E11.9 400 Strip 3 10/04/2023 Active Accu-Chek Guide Me w/Device KitIndications:Type 2 diabetes mellitus with foot ulcer, with long-term current use of insulin ([facility]),DM (diabetes mellitus) type II, controlled, with peripheral vascular disorder ([facility]) Use as directed. 0 10/04/2023 Active Accu-Chek Softclix LancetsIndications:T ype 2 diabetes mellitus with foot ulcer, with long-term current use of insulin ([facility]),DM (diabetes mellitus) type II, controlled, with peripheral vascular disorder ([facility]) Use to test blood glucose 4 times daily. DX: E11.9 400 Each 3 10/04/2023 Active Aspirin 81 MG Oral Tablet Delayed Release Take 1 Tablet by mouth in the morning. 0 10/19/2023 Active Digoxin 125 MCG Oral Tablet (Lanoxin)Indications :Permanent atrial fibrillation ([facility]) Take 1 Tablet by mouth in the morning. 90 Tablet 3 10/25/2023 Active Rosuvastatin Calcium 20 MG Oral Tablet (Crestor)Indications :Dyslipidemia, goal LDL below 70 Take 1 Tablet by mouth in the morning. 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 Pt requested this be sent to mail order.. 8 mL 0 10/24/2023 Active documented as of this encounter (statuses as of 10/30/2023) Active Problems Problem Noted Date Diagnosed Date Type 2 diabetes mellitus with foot ulcer (CODE) 09/19/2022 Gastro-esophageal reflux disease without esophag itis 03/27/2022 Major depressive disorder, recurrent, unspecifie d 02/10/2021 DM (diabetes mellitus) type II, controlled, with peripheral vascular disorder 12/08/2020 Coronary artery disease of n ative artery of [place] heart with stable angina pectoris 12/08/2020 History [...] Per Lipid Taxonomy. 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 0 05/03/2005 documented as of this encounter (statuses as of 10/30/2023) Resolved Problems Problem Noted Date Diagnosed Date [...] 6 months Hypopotassemia 08/22/2008 07/17/2011 [facility] other surgery 08/20/2008 07/17/2011 Statin intolerance [...] as of this encounter (statuses as of 10/30/2023) Immunizations Name Administration Dates Next Due COVID-19 [...] Upcoming Encounters Date Type Department Care Team (Latest Contact Info) Description 11/12/2023 9:00 AM EDT Hospital Encounter CRS Waiting [facility], Cardiac Recovery Suite Waiting Unit, [address] [place] [address] Huey Barrera MD [address] [place] [address] 11/12/2023 9:00 AM EDT - 11/12/2023 10:00 AM EDT Surgery CRS Waiting [facility], Cardiac Recovery Suite Waiting Unit, [address] [facility] [place] [address] Huey Barrera MD [address] [place] [address] CORONARY ANGIOGRAPHY W/LEFT HEART CATH 11/12/2023 9:00 AM EDT Office Visit Cardiology [facility] [place] [address] [facility] [place] [address] [place], Cardiac [facility] [address] [facility] [place] [address] 11/22/2023 8:20 AM EDT Anticoagulation Pharmacy, [place] [address] [place] [address] [facility] [address] [place] [address] 11/27/2023 9:30 AM EDT Office Visit Podiatry [address] [place] [id number] Kenny Archibald, [place] [address] [place] [address] 12/11/2023 10:00 AM EDT Office Visit Card[facility], [facility] [address] [facility] [address] Apple Durbin CRNP [address] [facility] [facility] [address] 12/12/2023 2:30 PM EDT Anticoagulation Pharmacy, [place] [address] [place] [address] [facility] [address] [place] [address] 12/12/2023 2:40 PM EDT Office Visit Pharmacy, [place] [address] [place] [place] [address] [facility] [address] [place] [address] 01/03/2024 1:00 PM EDT Office Visit [facility], [place] [address] [place] [place] [address] Natalia Heller PA-C [address] [place] [facility] [place] [address] Scheduled Procedures Name Priority Associated Diagnoses Date/Ti me CORONARY ANGIOGRAPHY W/LEFT HEART CATH Unstable angina (HCC) CAD (coronary artery disease) 11/12/2023 9:00 AM EDT COLONOSCOPY FLEXIBLE PROXIMAL DIAGNOSTIC Recall Screening for colon cancer Health Maintenance Due Date Last Done Comments Alpha-1 Antitrypsin 1967 Cologuard 1994 Fecal Occult Blood Test 1994 Sigmoidoscopy 1994 *BISPHONATE OR OTHER ACCEPTABLE MEDICATION NEEDED FOR OSTEOPOROSIS (REFER TO SMARTSET #1146) 08/07/2014 Zoster Vaccines (2 of 3) 04/20/2017 02/23/2017 Diabetic Eye Exam 10/28/2021 10/28/2020, , 05/13/2019, Additional history exists Depression Screening 01/18/2022 01/18/2021 Diabetic Foot Exam 01/18/2022 01/18/2021, 0 02/18/2019, 02/19/2018, Additional history exists COVID-19 Vaccine ( season) 2023 05/08/2022, 07/20/2021, 10/13/2020, Additional history exists Albumin/Creatinine Ratio 01/03/2024 023, 09/19/2022, 04/18/2021, Additional history exists HbA1c 02/28/2024 08/30/2023, 11/3 , 01/02/2023, Additional history exists Mammogram 06/07/2024 06/07/2023, 110 08/2021, 06/06/2022, Additional history exists DTaP,Tdap,and Td Vaccines (2 - Td or Tdap) 09/15/2024 09/15/2014, 07/15/2008, 02/09/1998 O2 ASSESSMENT COMPLETED IN PAST YEAR FOR COPD 09/18/2024 09/18/2023 DIG LEVEL FOR MEDICATION MONITORING YEARLY 10/18/2024 10/19/2023, 07/05/2023, 09/19/2022, Additional history exists GFR 10/18/2024 10/19/2023, 08/07, 07/05/2023, Additional history exists DXA Scan 02/19/2025 02/19/2023, 02/03, 05/12/2020, Additional history exists Colonoscopy 09/18/2033 09/18/2023, 09/06, 11/16/2020, Additional history exists Colorectal Cancer Screening 09/18/2033 Pneumococcal Vaccine: 65+ Years Completed 01/20/2016, 01/15/2015, 09/18/2006, Additional history exists VITAMIN D LEVEL ONCE IN A LIFETIME-USE SMARTSET# 66065 Completed 06/18/2020, 07/25/2019, 05/20/2015, Additional history exists LUNG CANCER SCREENING - USE SMARTSET [id number] Completed 12/22/2022, 12/09/2021, 12/24/2020, Additional history exists [...] this encounter Medical Devices Implanted Type Area Production 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 Device Identifier Shelf Expiration Date Model / Serial / Lot Graft Cervical 6x8 [id number] - [id number] Implanted:Qt y: 2 on 08/21/2008 at OR [facility] Tissue - Human Spine Cervical [employer] [id number] / / Screw Spine 14mm [id number] - [id number] Implanted:Qt y: 2 on 08/21/2008 at OR [facility] N/A: Spine Cervical [employer] DEPUY [id number] / / Depuy [place] 14 Mm Sd Con Scr Implanted:Qt y: 2 on 08/21/2008 at OR [facility] N/A: Spine Cervical [employer] / / Description:Depuy skyline 14 mm SD con SCR 34 Mm Plate Implanted:Qt y: 1 on 08/21/2008 at OR [facility] N/A: Spine Cervical / / Description:34 mm Depuy plat e 14 Mm Variable Rescue Implanted:Qt y: 2 on 08/21/2008 at OR [facility] N/A: Spine Cervical / / Description:14 mm variable r escue Screw 3.5x14 Mntr Fa [id number] - [id number] Implanted:Qt y: 10 on 07/13/2010 at OR [facility] N/A: Spine Cervical JNJ : [employer] [id number] / / Devaughn [id number] - [id number] Implanted:Qt y: 1 on 07/13/2010 at OR [facility] N/A: Spine Cervical JNJ : [employer] [id number] / / Screw Inner Mntr [id number] - [id number] Implanted:Qt y: 8 on 07/13/2010 at OR [facility] N/A: Spine Cervical JNJ : [employer] [id number] / / Nut Outer Xcon [id number] - [id number] Implanted:Qt y: 2 on 07/13/2010 at OR [facility] N/A: Spine Cervical JNJ : [employer] [id number] / / Screw Inner Xcon [id number] - [id number] Implanted:Qt y: 2 on 07/13/2010 at OR [facility] N/A: Spine Cervical JNJ : [employer] [id number] / / Plate 35mm Xcon [id number] - [id number] Implanted:Qt y: 1 on 07/13/2010 at OR [facility] N/A: Spine Cervical JNJ : [employer] [id number] / / documented as of this encounter Advance Directives Latest Code Status on File Code Status Date Activated Date Inactivated Comments Full Code 05/02/2019 4:53 PM 05/04/2019 8:34 PM This order reflects the patients wishes and were consensually agreed upon. Code Status History Code Status Date Activated Date Inactivated Comments Full Code 05/02/2019 11:29 AM 05/02/2019 4:53 PM This order reflects the patients wishes and were consensually agreed upon. Question Answer Comments Discussion of Advance Directives occurred with: Patient Does the patient have a Living Will? No Does the patient have Health Care Power of [place] Crewmember? No Full Code 07/13/2010 12:29 PM 07/17/2010 4:03 PM Thi s order reflects the patients wishes and were consensually agreed upon. Question Answer Comments Discussion of Advance Directives occurred with: Not Discussed Does the patient have a Living Will? No Does the patient have Health Care Power of Cannon Crewmember? No Full Code 01/07/2010 6:23 AM 01/07/2010 2:05 PM This or emi reflects the patients wishes and were consensually agreed upon. Question Answer Comments Discussion of Advance Directives occurred with: Patient/Family Does the patient have a Living Will? No Does the patient have Health Care Power of Cannon Crewmember? No Full Code 10/15/2009 7:12 AM 10/15/2009 9:26 PM This order reflects the patients wishes and were consensually agreed upon. Care Teams Hydrologist Relationship Specialty Start Date End Date Alfa Jaramillo MD [address] [place] [address] PCP - General 05/06/00 documented as of this encounter
--- OUTSIDE RECORDS SUMMARY | 2023-11-15 18:35 | External Medical Summary ---
Author Name Unknown Address Unknown Organization K01:[facility] [place] [address] [facility] [address] Laboratory Report Ordering Provider Test Date Status THIENGEN YohanARY 11/13/2023 04:31:00 Final Observation Date Value Abnormality Reference (Units ) Status HbA1C 11/13/2023 04:31:00 10.2 Above high normal 4. 0-5.6 (%) Final The use of HbA1c to monitor glycemic status is based on normal hemoglobin and HbA composition. This test should not be used in patients with abnormal hemoglobin that affects the half life of the red blood cell or the in vivo glycation rates. Glucose, estimated average 11/13/2023 04:31:00 246 Above high normal <126 (mg/dL) Josh hudson Performing Location [facility] [place] [address] [facility] [address]
--- OUTSIDE RECORDS SUMMARY | 2023-11-15 18:36 | External Medical Summary | Summary of Care ---
Author Name Unknown Organization [facility] Address [address] [facility] [place] [address] Phone [phone] Care Team Providers Care Last Turner Name Role Phone Alfa Jaramillo MD Primary Care Provider +1- [phone] Reason for Visit * Reason Onset Date Comments Test Results 10/25/2023 Encounter Details Date Type Department Care Team (Late st Contact Info) Description 10/25/2023 Telephone Cardiology, [facility] [address] [place] [address] GiftyApple sidhu CRNP [address] [place] [address] Test Results Allergies Active Allergy Reactions Criticality Noted Date Comments Alendronate Sodium 06/24/2012 Burning sensation and difficulty breathing Proton Pump Inhibitors Hives 02/20/2002 nexium documented as of this encounter (statuses as of 10/25/2023) Medications Medication Sig Dispensed Refills Start Date [...] directed. Change every 10 days. Supplied by [employer]: [phone] 0 Active Dexcom G6 Transmitter Use as directed. Change every 90 days. Supplied by [employer]: [phone] Active Dexcom G6 Digital Marketing Coordinator Device Use as directed. 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) TAKE ONE TABLET TO ONE AND ONE-HALF TABLET BY MOUTH EVERY DAY DIRECTED BY [facility] 135 Tablet 3 09/13/2023 5 Active Insulin Aspart 100 UNIT/ML Injection Solution (NovoLOG)Indications :Type 2 diabetes mellitus with foot ulcer, with long-term current use of insulin ([facility]),DM (diabetes mellitus) type II, controlled, with peripheral vascular disorder ([facility]) FOR USE WITH AN INSULIN PUMP, [...] vascular disorder (HCC) Use as directed. 0 10/04/2023 Active Accu-Chek [...] MCG Oral Tablet (Lanoxin)Indications :Permanent atrial fibrillation (HCC) Take 1 Tablet by mouth in the morning. 90 Tablet 3 10/25/2023 Active Rosuvastatin Calcium 20 MG Oral Tablet (Crestor)Indications :Dyslipidemia, goal LDL below 70 Take 1 Tablet by mouth in the morning. 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 Pt requested this be sent to mail order.. 8 mL 0 10/24/2023 Active documented as of this encounter (statuses as of 10/25/2023) Active Problems Problem Noted Date Diagnosed Date Type 2 diabetes mellitus with foot ulcer (CODE) 09/19/2022 Gastro-esophageal reflux disease without esophag itis 03/27/2022 Major depressive disorder, recurrent, unspecifie d 02/10/2021 DM (diabetes mellitus) type II, controlled, with peripheral vascular disorder 12/08/2020 Coronary artery disease of n ative artery of [place] heart with stable angina pectoris 12/08/2020 History [...] Per Lipid Taxonomy. 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 * Telephone Encounter - Zully Reyes CMA - 10/25/2023 12:50 PM EDT ----- Message from AUDELIA Mojica sent at 10/25/2023 12:46 PM EDT ----- Echo with hyperdynamic LVEF of 70% AFIB during study, known. Mild - stable. Mild MR. No changes needed at this time. documented in this encounter Plan of Treatment Upcoming Encounters Date Type Department Care Team (Latest Contact Info) Description 11/12/2023 9:00 AM EDT Hospital Encounter CRS Waiting [facility], Cardiac Recovery Suite Waiting Unit, [address] [place] [address] Huey Barrera MD [address] [place] [address] 11/12/2023 9:00 AM EDT - 11/12/2023 10:00 AM EDT Surgery CRS Waiting [facility], Cardiac Recovery Suite Waiting Unit, [address] [place] [address] Huey Barrera MD [facility] [place] [address] CORONARY ANGIOGRAPHY W/LEFT HEART CATH 11/12/2023 9:00 AM EDT Office Visit Cardiology [facility] [address] [place] [address] [facility] Cardiac Recovery [facility] [address] [place] [address] 11/22/2023 8:20 AM EDT Anticoagulation Pharmacy, [place] [address] [place] [address] [facility] [address] [place] [address] 11/27/2023 9:30 AM EDT Office Visit Podiatry [address] [place] [phone] Kenny Archibald, JASMINE [facility] [place] [address] 12/11/2023 10:00 AM EDT Office Visit Cardiology, [facility] [address] [place] [address] Apple Durbin CRNP [address] [place] [address] 12/12/2023 2:30 PM EDT [facility] Pharmacy, [place] [address] [facility] [address] [facility] [address] [place] [facility] [address] 12/12/2023 2:40 PM EDT Office Visit Pharmacy, [place] [address] [facility] [address] [facility] [address] [place] [facility] [address] 01/03/2024 1:00 PM EDT Office Visit Family Practice, [place] [address] [place] [facility] [address] Natalia Heller PA-C [address] [place] [facility] [place] [address] Scheduled Procedures Name Priority Associated Diagnoses Date/Ti [...] 04/18/2021, Additional history exists HbA1c 02/28/2024 08/30/2023, 06/08, 01/02/2023, Additional history exists Mammogram 06/07/2024 06/07/2023, 1108/2021, [...] D LEVEL ONCE IN A LIFETIME-USE SMARTSET# 90394 Completed 06/18/2020, 07/25/2019, 05/20/2015, Additional history exists LUNG CANCER SCREENING - USE SMARTSET 19470 Completed 12/22/2022, 12/09/2021, 12/24/2020, Additional history exists [...] this encounter Medical Devices Implanted Type Area Color Consultant Device Identifier Shelf Expiration Date Model / Serial / Lot Graft Cervical 6x8 [id number] - [id number] Implanted:Qt y: 2 on 08/21/2008 at OR [facility] Tissue - Human Spine Cervical [employer] [id number] / / Screw Spine 14mm [id number] - [id number] Implanted:Qt y: 2 on 08/21/2008 at OR [facility] N/A: Spine Cervical [employer] DEPUY 1868-50-014 / / Depuy [place] 14 Mm Sd Con Scr Implanted:Qt y: 2 on 08/21/2008 at OR [facility] N/A: Spine Cervical [employer]PUY 1868-60-014 / / Description:Depuy [place] 14 mm SD con SCR 34 Mm Plate Implanted:Qt y: 1 on 08/21/2008 at OR [facility] N/A: Spine Cervical [id number] / / Description:34 mm Depuy plat e 14 Mm Variable Rescue Implanted:Qt y: 2 on 08/21/2008 at OR [facility] N/A: Spine Cervical 1868-54-014 / / Description:14 mm variable r escue Screw 3.5x14 Mntr Fa [id number] - [id number] Implanted:Qt y: 10 on 07/13/2010 at OR [facility] N/A: Spine Cervical JNJ : ETH[employer]ON [employer]ATIONS [id number] / / [place]augh[place] [id number] - [id number] Implanted:Qt y: 1 on 07/13/2010 at OR [facility] N/A: Spine Cervical JNJ : [employer]ON [employer]ATIONS [id number] / / Screw Inner Mntr [id number] - [id number] Implanted:Qt y: 8 on 07/13/2010 at OR [facility] N/A: Spine Cervical JNJ : [employer]ON [employer]ATIONS [id number] / / Nut Outer Xcon [id number] - [id number] Implanted:Qt y: 2 on 07/13/2010 at OR [facility] N/A: Spine Cervical JNJ : [employer] [id number] / / Screw Inner Xcon [id number] - [id number] Implanted:Qt y: 2 on 07/13/2010 at OR [facility] N/A: Spine Cervical JNJ : [employer]ATIONS [id number] / / Plate 35mm Xcon [id number] - [id number] Implanted:Qt y: 1 on 07/13/2010 at OR [facility] N/A: Spine Cervical JNJ : [employer]ON [employer]ATIONS [id number] / / documented as of this encounter [...] the patient have Health Care Power of Manager Adobe? No Full Code 07/13/2010 12:29 PM 07/17/2010 4:03 PM Thi s order reflects the patients wishes and were consensually agreed upon. Question Answer Comments Discussion of Advance Directives occurred with: Not Discussed Does the patient have a Living Will? No Does the patient have Health Care Power of Manager Adobe? No Full Code 01/07/2010 6:23 AM 01/07/2010 2:05 PM This or emi reflects the patients wishes and were consensually agreed upon. Question Answer Comments Discussion of Advance Directives occurred with: Patient/Family Does the patient have a Living Will? No Does the patient have Health Care Power of Manager Adobe? No Full Code 10/15/2009 7:12 AM 10/15/2009 9:26 PM This order reflects the patients wishes and were consensually agreed upon. Care Teams Last Turner Relationship Specialty Start Date End Date Alfa Jaramillo MD [address] [facility] [place] [address] PCP - General 05/06/00 documented as of this encounter
--- OUTSIDE RECORDS SUMMARY | 2023-11-15 18:36 | External Medical Summary | Summary of Care ---
Author Name Unknown Organization [facility] Address [address] [facility] [place] [address] Phone [phone] Care Team Providers Care Molder Helper Name Role Phone Alfa Jaramillo MD Primary Care Provider +1- [phone] Encounter Details Date Type Department Care Team (Late st Contact Info) Description 10/22/2023 Refill Cardiology, [facility] [address] [place] [address] GiftyMeggan CRNP [address] [facility] [place] [address] Permanent atrial fibrillation (HCC)*; Dyslipidemia, goal LDL below 70 Allergies Active Allergy Reactions Criticality Noted Date [...] injections daily 3 boxes 3 7 Active B-D ULTRAFINE III (5MM) SHORT PEN MISCIndications:DM type 2, goal A1C 7-8 use as directed with sliding scale 500 Pen 3 2 Active Additional Information Patient not taking.Reported on 10/19/2023 INSULIN SYRINGE-NEEDLE U-100 30G X 1/2" 1 ML MISCIndications:DM type 1 causing neurological disease, 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 May substitute proventil or ventolin based on formulary 1 Inhaler 1 8 Active Calcium Carbonate Antacid 500 MG chewable [...] directed. Change every 10 days. Supplied by [employer]: [phone] 0 Active Dexcom G6 Transmitter Use as directed. Change every 90 days. Supplied by [employer]: [phone] 0 Active Dexcom G6 Approver Device Use as directed. 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,Deep vein thrombosis (DVT) ([facility]) TAKE ONE TABLET TO ONE AND ONE-HALF TABLET BY MOUTH EVERY DAY DIRECTED BY [facility] 135 Tablet 3 4 09/12/19 25 Active Insulin Aspart 100 UNIT/ML Injection Solution (NovoLOG)Indication s:Type 2 diabetes mellitus with foot ulcer, with long-term current use of insulin ([facility]),DM (diabetes mellitus) type II, controlled, with peripheral vascular disorder ([facility]) FOR USE WITH AN INSULIN PUMP, UP TO 310 UNITS DAILY- dose increase 300 mL 11 4 Active Accu-Chek Guide In Vitro Strip (Glucose Blood)Indications:T ype 2 diabetes mellitus with foot ulcer, with long-term current use of insulin (HCC),DM (diabetes mellitus) type II, controlled, with peripheral vascular disorder ([facility]) Use to test blood glucose 4 times daily. E11.9 400 Strip 3 4 Active Accu-Chek Guide Me w/Device KitIndications:Type 2 diabetes mellitus with foot ulcer, with long-term current use of insulin ([facility]),DM (diabetes mellitus) type II, controlled, with peripheral vascular disorder ([facility]) Use as directed. 0 4 Active Accu-Chek Softclix LancetsIndications: Type 2 diabetes mellitus with foot ulcer, with long-term current use of insulin ([facility]),DM (diabetes mellitus) type II, controlled, with peripheral vascular disorder ([facility]) Use to test blood glucose 4 times daily. DX: E11.9 400 Each 3 4 Active Aspirin 81 MG Oral Tablet Delayed Release Take 1 Tablet by mouth in the morning. 0 4 Active Digoxin 125 MCG Oral Tablet (Lanoxin)Indication s:Permanent atrial fibrillation (HCC) Take 1 Tablet by mouth in the morning. 90 Tablet 3 4 Active Rosuvastatin Calcium 20 MG Oral Tablet (Crestor)Indication s:Dyslipidemia, goal LDL below 70 Take 1 Tablet by mouth in the morning. 90 Tablet 3 4 Active Pravastatin Sodium 20 MG Oral Tablet (Pravachol) TAKE ONE TABLET BY MOUTH EVERY EVENING 90 Tablet 3 3 10/25/19 24 Discontinued Digoxin 250 MCG Oral Tablet (Lanoxin) Take 1 Tablet by mouth in the morning. 90 Tablet 5 3 10/22/19 24 Discontinued documented as of this encounter (statuses as of 10/25/2023) Active Problems Problem Noted Date Diagnosed Date Type 2 diabetes mellitus with foot ulcer (CODE) 09/19/2022 Gastro-esophageal reflux disease without esophag itis 03/27/2022 Major depressive disorder, recurrent, unspecifie d 02/10/2021 DM (diabetes mellitus) type II, controlled, with peripheral vascular disorder 12/08/2020 Coronary artery disease of n ative artery of [place] heart with stable angina pectoris 12/08/2020 History [...] Per Lipid Taxonomy. 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 0 05/03/2005 [...] encounter Miscellaneous Notes * Telephone Encounter - Meggan Guaman CRNP - 10/25/2023 11:44 AM EDT Signed Prescriptions: Disp Refills Digoxin 125 MCG Oral Tablet (Lanoxin) 90 Tab*3 Sig: Take 1 Tablet by mouth in the morning.Authorizing Provider: MEGGAN GUAMAN Rosuvastatin Calcium 20 MG OralTablet (Cr*90 Tab*3 Sig: Take 1 Tablet by mouth in the morning.Authorizing Provider: MEGGAN GUAMAN * Telephone Encounter - Ankita [place] COT - 10/25/2023 11:43 AM EDTPending Prescriptions: Disp Refills Digoxin 125 MCG Oral Tablet (Lanoxin) 90 Tab*3 Sig: Take 1 Tablet by mouth in the morning. Rosuvastatin Calcium 20 MG Oral Tablet (Cr*90 Tab*3 Sig: Take 1 Tablet by mouth in the morning. * Telephone Encounter - Ankita Clarke COT - 10/25/2023 11:42 AM EDT Spoke with patient to review medication instructions. Pt requesting to have meds filled with [facility] mail order. * Telephone Encounter - Meggan Guaman CRNP - 10/22/2023 7:00 AM EDT Dig level elevated- reduce digoxin to 125 mcg daily- repeat dig level in 10-14 days. LDL 94 -- stop pravastatin and start crestor 20 mg daily. documented in this encounter Plan of Treatment Upcoming Encounters Date Type Department Care Team (Latest Contact Info) Description 11/12/2023 9:00 AM EDT Hospital Encounter [place] [facility] Unit, [address] [place] [address] Huey Barrera MD [address] [place] [address] 11/12/2023 9:00 AM EDT - 11/12/2023 10:00 AM EDT Surgery [facility] [place] [facility] Card[place] Suite Waiting Unit, [address] [place] [address] Huey Barrera MD [address] [place] [address] CORONARY ANGIOGRAPHY W/LEFT HEART CATH 11/12/2023 9:00 AM EDT Office Visit Cardiology [facility] [address] [place] [address] [facility] Cardiac Recovery [facility] [address] [place] [address] 11/22/2023 8:20 AM EDT Anticoagulation Pharmacy, [place] [address] [place] [address] [facility] [address] [place] [address] 11/27/2023 9:30 AM EDT Office Visit Podiatry [address] [place] [phone] Kenny Archibald, [address] [address] 12/11/2023 10:00 AM EDT Office Visit Cardiology, [facility] [address] [email or web address] [place] [address] Meggan Guaman CRNP [address] [place] [address] 12/12/2023 2:30 PM EDT Anticoagulation Pharmacy, [place] [address] [place] [address] [facility] [address] [facility] [place] [address] 12/12/2023 2:40 PM EDT Office Visit Pharmacy, [place] [address] [facility] [place] [address] [facility] [address] [facility] [place] [address] 01/03/2024 1:00 PM EDT Office Visit Family Practice, [place] [address] [facility] [place] [id number] Natalia Heller PA-C [address] [place] [address] Scheduled Orders Name Type Priority Associated Diagnoses Orde r Schedule DIGOXIN LEVEL Lab Routine Permanent atrial fibrillation (HCC) Dyslipidemia, goal LDL below 70 Expected: 10/29/2023, Expires: 10/21/2024 Scheduled Procedures Name Priority Associated Diagnoses Date/Ti [...] 01/02/2023, Additional history exists Mammogram 06/07/2024 06/07/2023, 08/2021, [...] D LEVEL ONCE IN A LIFETIME-USE SMARTSET# [id number] Completed 06/18/2020, 07/25/2019, 05/20/2015, Additional history exists LUNG CANCER SCREENING - USE SMARTSET 21086 Completed 12/22/2022, 12/09/2021, 12/24/2020, Additional history exists [...] this encounter Medical Devices Implanted Type Area Computer Support Analyst Device Identifier Shelf Expiration Date Model / Serial / Lot Graft Cervical 6x8 [id number] - [id number] Implanted:Qt y: 2 on 08/21/2008 [place] [facility] [place] - Human Spine Cervical [employer] [id number] / / Screw Spine 14mm [id number] - [id number] Implanted:Qt y: 2 on 08/21/2008 [place] [facility] [place]/A: Spine Cervical [employer] CARSON DEPUY [id number] / / Depuy [place] 14 Mm Sd Con Scr Implanted:Qt y: 2 on 08/21/2008 [place] [facility] [place]/A: Spine Cervical [employer] DEPUY [address]14 / / Description:Depuy skyline 14 mm SD con SCR 34 Mm Plate Implanted:Qt y: 1 on 08/21/2008 [place] [facility] [place]/A: Spine Cervical / / Description:34 mm Depuy plat e 14 Mm Variable Rescue Implanted:Qt y: 2 on 08/21/2008 [place] [facility] [place]/A: Spine Cervical / / Description:14 mm variable r escue Screw 3.5x14 Mntr Fa [id number] - [id number] Implanted:Qt y: 10 on 07/13/2010 [place] [facility] [place]A: Spine Cervical JNJ : ETH[employer]ON C[employer]IOVATIONS [id number] / / Devaughn [id number] - [id number] Implanted:Qt y: 1 on 07/13/2010 [place] [facility]/A: Spine Cervical JNJ : ETH[employer]ON CARDIOVATIONS [id number] / / Screw Inner Mntr [id number] - [id number] Implanted:Qt y: 8 on 07/13/2010 [place] [facility] [place]A: Spine Cervical JNJ : ETHICON C[employer]OVATIONS [id number] / / Nut Outer Xcon [id number] - [id number] Implanted:Qt y: 2 on 07/13/2010 [place] [facility] [place]A: Spine Cervical JNJ : ETH[employer]ON C[employer]ATIONS [id number] / / Screw Inner Xcon [id number] - [id number] Implanted:Qt y: 2 on 07/13/2010 [place] [facility] [place]/A: Spine Cervical JNJ : ETHICON C[employer]OVATIONS [id number] / / Plate 35mm Xcon [id number] - [id number] Implanted:Qt y: 1 on 07/13/2010 [place] [facility] [place]A: Spine Cervical JNJ : ETHICON CARD[employer]OVATIONS [id number] / / documented as of this encounter Visit Diagnoses Diagnosis Permanent atrial fibrillation (HCC)- Primary Atrial fibrillation Dyslipidemia, goal LDL below 70 Other and unspecified hyperlipidemia Unstable angina (HCC) Intermediate coronary syndrome CAD (coronary artery disease) Coronary atherosclerosis of unspecified type of vessel, [place] or graft documented in this encounter Advance Directives Latest [...] the patient have Health Care Power of Budget Coordinator? No Full Code 07/13/2010 12:29 PM 07/17/2010 4:03 PM Thi s order reflects the patients wishes and were consensually agreed upon. Question Answer Comments Discussion of Advance Directives occurred with: Not Discussed Does the patient have a Living Will? No Does the patient have Health Care Power of Budget Coordinator? No Full Code 01/07/2010 6:23 AM 01/07/2010 2:05 PM This or emi reflects the patients wishes and were consensually agreed upon. Question Answer Comments Discussion of Advance Directives occurred with: Patient/Family Does the patient have a Living Will? No Does the patient have Health Care Power of Budget Coordinator? No Full Code 10/15/2009 7:12 AM 10/15/2009 9:26 PM This order reflects the patients wishes and were consensually agreed upon. Care Teams Molder Helper Relationship Specialty Start Date End Date Alfa Jaramillo MD [address] [place] [address] PCP - General 05/06/00 documented as of this encounter
--- OUTSIDE RECORDS SUMMARY | 2023-11-15 18:36 | External Medical Summary | Summary of Care ---
Author Name Unknown Organization [facility] Address [address] [facility] [place] [address] Phone [phone] Care Team Providers Care Walking Dragline Operator Name Role Phone Alfa Jaramillo MD Primary Care Provider [phone] Reason for Visit * Reason Comments Dosage Adjustment In Person (Anticoag Cl inic) Diabetes Follow-Up Encounter Details Date Type Department Care Team (Late st Contact Info) Description 10/24/2023 2:40 PM EDT Office Visit Pharmacy, [address] [address] [facility] [address] [place] [address] Type 2 diabetes mellitus with foot ulcer, with long-term current use of insulin (HCC)*; DM (diabetes mellitus) type II, controlled, with peripheral vascular disorder (HCC) Allergies Active Allergy Reactions Criticality Noted Date Comments Alendronate Sodium 06/24/2012 Burning sensation and difficulty breathing Proton Pump Inhibitors Hives 02/20/2002 nexium documented as of this encounter (statuses as of 10/24/2023) Medications Medication Sig Dispensed Refills Start Date [...] albuterol (PROAIR HFA) 108 (90 BASE) MCG/ACT inhalerIndications:Jose Luis clemons, complicated Inhale 2 Puffs by mouth 4 [...] directed. Change every 10 days. Supplied by [employer]: [phone] 0 Active Dexcom G6 Transmitter Use as directed. Change every 90 days. Supplied by [employer]: [phone] 0 Active Dexcom G6 Boil Off Worker Device Use as directed. Supplied by [employer]: [phone] 0 Active Fluticasone Propionate 50 MCG/ACT Nasal [...] ER 100 Tablet 11 11/29/2022 4 Active Pravastatin Sodium 20 MG Oral Tablet (Pravachol) TAKE ONE TABLET BY MOUTH EVERY EVENING 90 Tablet 3 11/16/2022 4 Active metFORMIN HCl 1000 MG Oral [...] colonoscopy instructions. 255 g 0 04/04/2023 Active Digoxin 250 MCG Oral Tablet (Lanoxin) Take 1 Tablet by mouth in the morning. 90 Tablet 5 05/04/2023 Active Pregabalin 150 MG Oral Capsule (Lyrica)Indications: Diabetic polyneuropathy associated with type 1 diabetes mellitus (HCC) TAKE ONE CAPSULE BY MOUTH TWICE A DAY 180 Capsule 1 08/20/2023 4 Active Warfarin Sodium 5 MG Oral Tablet (Coumadin)Indication s:terminal gauger current use of anticoagulant therapy,Deep vein thrombosis (DVT) (HCC) TAKE ONE TABLET TO ONE AND ONE-HALF TABLET BY MOUTH EVERY DAY DIRECTED BY [facility] 135 Tablet 3 09/13/2023 5 Active Insulin Aspart 100 UNIT/ML Injection Solution (NovoLOG)Indications :Type 2 diabetes mellitus with foot ulcer, with long-term current use of insulin ([facility]),DM (diabetes mellitus) type II, controlled, with peripheral vascular disorder ([facility]) FOR USE WITH AN INSULIN PUMP, UP TO 310 UNITS DAILY- dose increase 300 mL 11 10/01/2023 Active Accu-Chek Guide In Vitro Strip (Glucose Blood)Indications:Ty pe 2 diabetes mellitus with foot ulcer, with long-term current use of insulin ([facility]),DM (diabetes mellitus) type II, controlled, with peripheral vascular disorder ([facility]) Use to test blood glucose 4 times daily. E11.9 400 Strip 3 10/04/2023 Active Accu-Chek Guide Me w/Device KitIndications:Type 2 diabetes mellitus with foot ulcer, with long-term current use of insulin ([facility]),DM (diabetes mellitus) type II, controlled, with peripheral vascular disorder ([facility]) Use as directed. 0 10/04/2023 Active Accu-Chek Softclix LancetsIndications:T ype 2 diabetes mellitus with foot ulcer, with long-term current use of insulin ([facility]),DM (diabetes mellitus) type II, controlled, with peripheral vascular disorder ([facility]) Use to test blood glucose 4 times daily. DX: E11.9 400 Each 3 10/04/2023 Active Aspirin 81 MG Oral Tablet Delayed Release Take 1 Tablet by mouth in the morning. 0 10/19/2023 Active documented as of this encounter (statuses as of 10/24/2023) Active Problems Problem Noted Date Diagnosed Date Type 2 diabetes mellitus with foot ulcer (CODE) 09/19/2022 Gastro-esophageal reflux disease without esophag itis 03/27/2022 Major depressive disorder, recurrent, unspecifie d 02/10/2021 DM (diabetes mellitus) type II, controlled, with peripheral vascular disorder 12/08/2020 Coronary artery disease of n ative artery of [place] heart with stable angina pectoris 12/08/2020 History [...] Lipid Taxonomy. Cervical spinal stenosis 08/21/2008 terminal gauger current use of anticoagulant therapy 0 05/03/2005 documented as of this encounter (statuses as of 10/24/2023) Resolved Problems Problem Noted Date Diagnosed Date [...] 6 months Hypopotassemia 08/22/2008 07/17/2011 [facility] other [facility] 08/20/2008 07/17/2011 Statin intolerance [...] as of this encounter (statuses as of 10/24/2023) Immunizations Name Administration Dates Next Due COVID-19 [...] of this encounter Progress Notes * Shanthi Franks, [facility] - 10/24/2023 2:29 PM EDT Images from the original note were not included. Medication Therapy Disease Management - CSII Follow-up Interval History: Graciela Mobley is an 73 year old year old female returning to the [facility] for a diabetes insulin pump follow-up visit. Blood glucose control since last visit: worse Medication intolerance: no Medication compliance: yes Medication contraindications: no Complicating factors/cost barriers: no Hospitalization or ED Utilization since last visit: no Hypoglycemia requiring assistance since last visit: no Current Diabetes Medications: Metformin 1000mg twice daily Ozempic 2 mg once weekly- Sundays GFR 74 as of 08/30/23 Medtronic 780G Insulin Pump (Serial Number: [id number]) Infusion Set: Quick set Insulin: Novolog Basal Rate: midnight to 6am 7.25 units/hour 6am to 12am: 8.2 units/hour 12am to midnight 8.6 units/hour Bolus: 25 units with breakfast, 45 units with lunch and 40 units with supper (adds difference to preset bolus of 25 for lunch and supper) Bolus wizard: not using ICR: 5 (using preset) ISF: 10 Blood Glucose Goals: 96-180 Active Insulin Time: 2 hours Back up plan in event of pump malfunction: Novolog vial with insulin needles Toujeo U300 60 units BID Carelink Blood Glucose Review: Hypoglycemia Assessment: 1. Do you know what the symptoms of hypoglycemia are? Yes 2. How often can you tell by your symptoms if your blood sugar is low? Often 3. In a typical week, how many times will your blood sugar go below 70 mg/dL? Never Patient Active Problem List Diagnosis Code FPC current use of anticoagulant therapy Z79.01 Cervical spinal stenosis M48.02 DYSLIPIDEMIA, GOAL LDL BELOW 100 E78.5 Senile osteoporosis M81.0 COPD, moderate ([facility]) J44.9 History of DVT (deep vein thrombosis) Z86.718 History of breast cancer Z85.3 B12 deficiency E53.8 Diabetic polyneuropathy associated with type 2 diabetes mellitus ([facility]) E11.42 Diabetic cataract, associated with type 1 diabetes mellitus ([facility]) E10.36 Type 2 diabetes mellitus with skin complication, with long-term current use of insulin ([facility]) E11.628, Z79.4 Chronic atrial fibrillation ([facility]) I48.20 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 ([facility]) Z89.411 History of ankle surgery Z98.890 DM (diabetes mellitus) type II, controlled, with peripheral vascular disorder ([facility]) E11.51 Coronary artery disease of [place] artery of [place] heart with stable angina pectoris ([facility]) I25.118 Major depressive disorder, recurrent, unspecified ([facility]) F33.9 Gastro-esophageal reflux disease without esophagitis K21.9 Type 2 diabetes mellitus with foot ulcer (CODE) ([facility]) E11.621 Review of patient's allergies indicates: Allergen Reactions Alendronate Sodium Burning sensation and difficulty breathing Proton Pump Inhibitors Hives nexium Current Outpatient Medications Medication Sig Dispense Refill INSULIN SYRINGE 30G X 1/2" 0.5 ML MISC use for injections daily 3 boxes 3 B-D ULTRAFINE III (5MM) SHORT PEN MISC [...] 1 Capsule by mouth in the morning. Multiple Vitamin (DAILY VALUE MULTIVITAMIN) Tablet Take [...] new one on Sunday. 15 mL 1 Dexcom G6 Sensor Use as directed. Change every 10 days. Supplied by [employer]: [phone] Dexcom G6 Transmitter Use as directed. Change every 90 days. Supplied by [employer]: [phone] [employer] G6 Boil Off Worker Device Use as directed. Supplied by [employer]: [phone] Fluticasone Propionate 50 MCG/ACT Nasal Suspension (Flonase) [...] 1 Tablet by mouth in the morning. Enoxaparin Sodium 80 MG/0.8ML Injection Solution Prefilled Syringe (Lovenox) Inject 80 mg under theskin in the morning and 80 mg before bedtime. Pt requested this be sent to mail order.. 8 mL 0 No current facility-administered medications for this visit. Objective: The ASCVD Risk score (G[place] Breeze DK, et al., 2019) failed to calculate for the following reasons: The patient has a prior OH or stroke diagnosis Estimated body mass index is 31.53 kg/m as calculated from the following: Height as of 09/12/23: 1.651 m (5' 5"). Weight as of 10/19/23: 86 kg (189 lb 8 oz). BP Readings from Last 3 Encounters: 10/19/23 106/62 09/18/23 90/55 07/05/23 122/80 No components found for: "[id number]" No results found for: "MICROALBUMIN" Lab Results Component Value Date/Time LDL CHOLESTEROL (CALCULATED) - [facility] 94 10/19/2023 10:23 AM LDL CHOLESTEROL (CALCULATED) - [facility] 81 10/19/2017 09:32 AM LDL CHOLESTEROL (DIRECT MEASURE) - [facility] 93 12/08/2020 09:59 AM LDL CHOLESTEROL (DIRECT MEASURE) - [facility] 102 06/18/2020 09:03 AM LDL CHOLESTEROL (DIRECT MEASURE) - [facility] 47 01/05/2014 04:02 PM Lab Results Component Value Date/Time ALT 43 07/09/1996 11:15 AM ALT - [facility] 27 10/19/2023 10:23 AM ALT - [facility] 35 06/18/2020 09:03 AM Assessment & Plan: Considerations: - over PACE income as of 2021 - patient approved for NovoNordisk PAP - omnipod not an option due to cost (on P Gold, would push to [facility] immediately) + pt's current insulin requirement. Glycemic control is unstable and not at goal Patient agreeable to continue medications regimen at this time. Reviewed that her insulin requirements are essentially maximized on the pump. Briefly mentioned about changing to concentrated insulin in her pump, but this is of course poses a safety concern, and we will avoid this option. I stressed to patient and her the importance of re-focusing their efforts to reduce patient's carb intake. Reviewed that at most, she should be eating 60g of carbs with a meal. They admitted that lately they have been eating pizza, potatoes, mac and cheese, pot pies, and spaghetti. Reviewedwith patient and that considering her heart health, it is even more important to better control her blood sugars. Diabetes Medications: Metformin 1000mg twice daily Ozempic 2 mg once weekly- Sundays GFR 74 as of 08/30/23 Medtronic 780G Insulin Pump (Serial Number: [id number]) Infusion Set: Quick set Insulin: Novolog Basal Rate: midnight to 6am 7.25 units/hour 6am to 12am: 8.2 units/hour 12am to midnight 8.6 units/hour Bolus: 25 units with breakfast, 45 units with lunch and 40 units with supper (adds difference to preset bolus of 25 for lunch and supper) Bolus wizard: not using ICR: 5 (using preset) ISF: 10 Blood Glucose Goals: 96-180 Active Insulin Time: 2 hours Return to Clinic: 7-8 week(s) 11/22/2023 Shanthi Franks [facility] Clinical Pharmacist Medication Therapy Disease Management 10/24/2023, 2:29 PM documented in this encounter Plan of Treatment Upcoming Encounters Date Type Department Care Team (Latest Contact Info) Description 10/25/2023 8:00 AM EDT Cardiac Studies Cardiac Studies, [address] [address] 11/12/2023 9:00 AM EDT Hospital Encounter [place] [place] [facility] [facility] [facility] Suite Waiting Unit, [address] [facility] [place] [address] Huey Barrera MD [address] [facility] [address] 11/12/2023 9:00 AM EDT - 11/12/2023 10:00 AM EDT Surgery CRS Waiting [facility] Cardiac Recovery Suite Waiting Unit, [address] [facility] [place] [address] Huey Barrera MD [address] [facility] [place] [address] CORONARY ANGIOGRAPHY W/LEFT HEART CATH 11/12/2023 9:00 AM EDT Office Visit Cardiology [facility] [place] [address] [facility] [place] [address] [place], Cardiac Recovery [facility] [address] [facility] [place] [address] 11/22/2023 8:20 AM EDT Anticoagulation Pharmacy, [place] [address] [facility], [place] [address] [facility] [address] [place] [address] 11/27/2023 9:30 AM EDT Office Visit Podiatry [facility], [address] [place] [id number] Kenny Archibald, [facility] [address] [place] [address] 12/11/2023 10:00 AM EDT [facility] Visit [facility] [address] [facility] [address] [facility] [address] [facility] [address] 12/12/2023 2:30 PM EDT Anticoagulation Pharmacy, [place] [address] [facility], [place] [address] [facility] [address] [place] [facility] [address] 12/12/2023 2:40 PM EDT Office Visit Pharmacy, [place] [address] [facility], [place] [address] [facility] [address] [place] [facility] [place] [address] 01/03/2024 1:00 PM EDT Office Visit Family Practice, [place] [address] [place] [facility] [place] [id number] Natalia Heller [facility] [address] [place] [address] Scheduled Procedures Name Priority Associated Diagnoses Date/Ti [...] 02/18/2019, 02/19/2018, Additional history exists COVID-19 Vaccine (2022- season) 2023 05/08/2022, 07/20/2021, 10/13/2020, Additional history [...] D LEVEL ONCE IN A LIFETIME-USE SMARTSET# [id number] Completed 06/18/2020, 07/25/2019, 05/20/2015, Additional history exists LUNG CANCER SCREENING - USE SMARTSET 80142 Completed 12/22/2022, 12/09/2021, 12/24/2020, Additional history exists [...] this encounter Medical Devices Implanted Type [employer] Device Identifier Shelf Expiration Date Model / Serial / Lot Graft Cervical 6x8 [id number] - [id number] Implanted:Qt y: 2 on 08/21/2008 at [place] [facility] Tissue - Human Spine Cervical [employer] [id number] / / Screw Spine 14mm 1868-50-014 - [id number] Implanted:Qt y: 2 on 08/21/2008 at [place] [facility] N/A: Spine Cervical [employer] DEPUY 1868-50-014 / / Depuy [place] 14 Mm Sd Con Scr Implanted:Qt y: 2 on 08/21/2008 at [place] [facility] N/A: Spine Cervical [employer] 1868-60-014 / / Description:Depuy skyline 14 mm SD con SCR 34 Mm Plate Implanted:Qt y: 1 on 08/21/2008 at [place] [facility] N/A: Spine Cervical 02 / / Description:34 mm Depuy plat e 14 Mm Variable Rescue Implanted:Qt y: 2 on 08/21/2008 at [place] [facility] N/A: Spine Cervical 54-014 / / Description:14 mm variable r escue Screw 3.5x14 Mntr Fa [id number] - [id number] Implanted:Qt y: 10 on 07/13/2010 at [place] [facility] [place]/A: Spine Cervical JNJ : [employer] [id number] / / Devaughn 3.9n529mt [id number] - [id number] Implanted:Qt y: 1 on 07/13/2010 at [place] [facility] N/A: Spine Cervical JNJ : [employer] [id number] / / Screw Inner Mntr [id number] - [id number] Implanted:Qt y: 8 on 07/13/2010 at [place] [facility] N/A: Spine Cervical JNJ : [employer] [id number] / / Nut Outer Xcon [id number] - [id number] Implanted:Qt y: 2 on 07/13/2010 at [place] [facility] N/A: Spine Cervical JNJ : [employer] [id number] / / Screw Inner Xcon [id number] - [id number] Implanted:Qt y: 2 on 07/13/2010 at [place] [facility] N/A: Spine Cervical JNJ : [employer] [id number] / / Plate 35mm Xcon [id number] - [id number] Implanted:Qt y: 1 on 07/13/2010 at [place] [facility] N/A: Spine Cervical JNJ : [employer] [id number] / / documented as of this encounter Visit Diagnoses Diagnosis Type 2 diabetes mellitus with foot ulcer, with long-term current use of insulin (HCC)- Primary DM (diabetes mellitus) type II, controlled, with peripheral vascular disorder (HCC) Unstable angina (HCC) Intermediate coronary syndrome CAD (coronary artery disease) Coronary atherosclerosis of unspecified type of vessel, [place] or graft documented in this encounter Advance [...] the patient have Health Care Power of Practical Nurse? No Full Code 07/13/2010 12:29 PM 07/17/2010 4:03 PM Thi s order reflects the patients wishes and were consensually agreed upon. Question Answer Comments Discussion of Advance Directives occurred with: Not Discussed Does the patient have a Living Will? No Does the patient have Health Care Power of Practical Nurse? No Full Code 01/07/2010 6:23 AM 01/07/2010 2:05 PM This or emi reflects the patients wishes and were consensually agreed upon. Question Answer Comments Discussion of Advance Directives occurred with: Patient/Family Does the patient have a Living Will? No Does the patient have Health Care Power of Practical Nurse? No Full Code 10/15/2009 7:12 AM 10/15/2009 9:26 PM This order reflects the patients wishes and were consensually agreed upon. Care Teams Walking Dragline Operator Relationship Specialty Start Date End Date Alfa Jaramillo MD [address] [place] [address] PCP - General 05/06/00 documented as of this encounter
--- OUTSIDE RECORDS SUMMARY | 2023-11-15 18:36 | External Medical Summary ---
Author Name Unknown Address Unknown Organization : Laboratory Report Ordering Provider Test Date Status LETICIA HOOD 10/24/2023 14:39:20 Final Therapeutic ranges for non-o perative patients:
Prophylaxsis/treatment of DVT: (Range:2.0-3.0)
Treatment of pulmonary embolism:(Range:2.0-3.0)
Prevention of systemic embolism from:
-tissue heart valves
-acute myocardial infarction
-valvular heart disease
-atrial fibrillation
(Range: 2.0-3.0)
Mechanical prosthetic valves: (Range: 2.5-3.5) Observation Date Value Abnormality Reference (Units ) Status INR in Capillary blood by Coagulation assay 10/24/2023 14:39:20 2.4 (INR) Final Performing Location
--- OUTSIDE RECORDS SUMMARY | 2023-11-15 18:36 | External Medical Summary | Summary of Care ---
Author Name Unknown Organization [facility] Address [address] [facility] [place] [address] Phone [phone] Care Team Providers Care Wedding Florist Name Role Phone Alfa Jaramillo MD Primary Care Provider [phone] Reason for Visit * Reason Comments Dosage Adjustment In Person (Anticoag Cl inic) Encounter Details Date Type Department Care Team (Latest Contact Info) Description 10/24/2023 2:30 PM EDT Anticoagulation Pharmacy, [address] [address] [facility] [address] [place] [address] History of DVT (deep vein thrombosis)*; Chronic atrial fibrillation (HCC); Anticoagulation management encounter; prison current use of anticoagulant therapy Allergies Active Allergy Reactions Criticality Noted Date [...] directed. Change every 10 days. Supplied by [employer]: [phone] 0 Active Dexcom G6 Transmitter Use as directed. Change every 90 days. Supplied by [employer]: [phone] 0 Active Dexcom G6 Cost Estimating Engineer Device Use as directed. Supplied by [employer]: [phone] 0 Active Fluticasone Propionate 50 MCG/ACT Nasal [...] Warfarin Sodium 5 MG Oral Tablet (Coumadin)Indication s:prison current use of anticoagulant therapy,Deep vein thrombosis [...] [facility]) Use as directed. 0 10/04/2023 Active Accu-Chek [...] mouth in the morning. 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 Inject 80 [...] artery disease of n ative artery of [place] heart with stable angina pectoris 12/08/2020 History [...] 6 months Hypopotassemia 08/22/2008 07/17/2011 Follow-up examination, [facility] other surgery 08/20/2008 07/17/2011 Statin intolerance [...] this encounter Progress Notes * Shanthi Franks, [facility] - 10/24/2023 2:29 PM EDT Medication Therapy Disease Management - Anticoagulation Patient: Graciela Mobley | : 1950 Subjective Patient-Reported Symptoms: Patient Findings Positives: Upcoming invasive procedure (cardiac cath 11/12/23- lovenox bridge instructions provided to patient today) Negatives: Signs/symptoms of thrombosis, Signs/symptoms of bleeding, Change in health, Change in alcohol use, Change in activity, Missed doses, Extra doses, Change in medications, Change in diet/appetite, Bruising Objective Current Warfarin Dose As of 10/24/2023 Warfarin maintenance plan: 5 mg (5 mg x 1) every day INR Result As of 10/24/2023 INR goal: 2.0-3.0 INR used for dosin.4 (10/24/2023) Assessment & Plan Warfarin Plan As of 10/24/2023 Full warfarin instructions: 5 mg every day No change documented: Shanthi Franks RPh Next INR check: 11/22/2023 Repeat PT/INR in 4 week(s) Weekly dose: not changed Additional Dosing Information: Shanthi Franks RPh Clinical Pharmacist 10/24/2023, 2:29 PM documented in this encounter Plan of Treatment Upcoming Encounters Date Type Department Care Team (Latest Contact Info) Description 10/25/2023 8:00 AM EDT Cardiac Studies Cardiac Studies, [address] [address] 11/12/2023 9:00 AM EDT Hospital Encounter [place] [facility] [facility] Waiting Unit, [address] [place] [address] Huey Barrera MD [address] [facility] [place] [address] 11/12/2023 9:00 AM EDT - 11/12/2023 10:00 AM EDT Surgery [facility]S [place]ing [facility] Suite Waiting Unit, [address] [facility] [place] [facility] [place] [address] Huey Barrera MD [address] [facility] [place] [address] CORONARY ANGIOGRAPHY W/LEFT HEART CATH 11/12/2023 9:00 AM EDT Office Visit Cardiology [facility] [place] [address] [facility] [place] [address] [facility] Cardiac Recovery [place] [address] [place] [address] 11/22/2023 8:20 AM EDT Anticoagulation Pharmacy, [place] [address] [place] [address] [facility] [address] [place] [address] 11/27/2023 9:30 AM EDT Office Visit Podiatry [address] [place] [phone] Kenny Archibald, [facility] [address] [place] [address] 12/11/2023 10:00 AM EDT [facility] Visit [facility], [facility] [address] [facility] [address] Apple Durbin CRNP [address] [facility] [address] 12/12/2023 2:30 PM EDT Anticoagulation Pharmacy, [place] [address] [place] [address] [facility] [address] [place] [address] 12/12/2023 2:40 PM EDT Office Visit Pharmacy, [place] [address] [place] [address] [facility] [address] [place] [address] 01/03/2024 1:00 PM EDT Office Visit Family Practice, [place] [address] [place] [phone] Natalia Heller PA-C [address] [place] [address] Scheduled Procedures Name Priority Associated Diagnoses Date/Ti [...] 04/18/2021, Additional history exists HbA1c 02/28/2024 08/30/2023, 113 , 01/02/2023, Additional history exists Mammogram 06/07/2024 06/07/2023, 11/0 [...] D LEVEL ONCE IN A LIFETIME-USE SMARTSET# [id number] Completed 06/18/2020, 07/25/2019, 05/20/2015, Additional history exists LUNG CANCER SCREENING - USE SMARTSET [id number] Completed 12/22/2022, 12/09/2021, 12/24/2020, Additional history exists [...] this encounter Medical Devices Implanted Type Area Senior Outside Sales Representative Device Identifier Shelf Expiration Date Model / Serial / Lot Graft Cervical 6x8 [id number] - [id number] Implanted:Qt y: 2 on 08/21/2008 [place] [facility] [place] - Human Spine Cervical [employer] [id number] / / Screw Spine 14mm 1868-50-014 - [id number] Implanted:Qt y: 2 on 08/21/2008 at [place] [facility] N/A: Spine Cervical [employer] 1868-50-014 / / Depuy [place] 14 Mm Sd Con Scr Implanted:Qt y: 2 on 08/21/2008 at [place] [facility] N/A: Spine Cervical [employer] 1868-60-014 / / Description:Depuy [place] 14 mm SD con SCR 34 Mm Plate Implanted:Qt y: 1 on 08/21/2008 at [place] [facility] N/A: Spine Cervical 02-034 / / Description:34 mm Depuy plat e 14 Mm Variable Rescue Implanted:Qt y: 2 on 08/21/2008 at [place] [facility] N/A: Spine Cervical 54-014 / / Description:14 mm variable r escue Screw 3.5x14 Mntr Fa [id number] - [id number] Implanted:Qt y: 10 on 07/13/2010 at [place] [facility] N/A: Spine Cervical [place] : [employer] [id number] / / Devaughn [id number] - [id number] Implanted:Qt y: 1 on 07/13/2010 at [place] [facility] [place]/A: Spine Cervical [place] : [employer] [id number] / / Screw Inner Mntr [id number] - [id number] Implanted:Qt y: 8 on 07/13/2010 at [place] [facility] [place]/A: Spine Cervical [place] : [employer] [id number] / / Nut Outer Xcon [id number] - [id number] Implanted:Qt y: 2 on 07/13/2010 at [place] [facility] [place]/A: Spine Cervical JN[place] : [employer] [id number] / / Screw Inner Xcon [id number] - [id number] Implanted:Qt y: 2 on 07/13/2010 at [place] [facility] N/A: Spine Cervical JN[place] : [employer] [id number] / / Plate 35mm Xcon [id number] - [id number] Implanted:Qt y: 1 on 07/13/2010 at [place] [facility] N/A: Spine Cervical JN[place] : [employer] [id number] / / documented as of this encounter Procedures Procedure Name Priority Date/Time Associated Diagnosis Comments INR FINGERSTICK, POINT OF CARE STAT 10/24/2023 2:39 PM EDT History of DVT (deep vein thrombosis) Chronic atrial fibrillation (HCC) 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 documented in this encounter Results * INR FINGERSTICK, POINT OF CARE (10/24/2023 2:39 PM EDT) Fingerstick INR 2.4 INR 3:19 PM EDT LABORATORY [address] Blood 10/24/2023 2:39 PM EDT 10/24/2023 3:19 PM EDT Narrative [facility]- - 10/24/2023 3:19 PM EDT Therapeutic ranges for non-operative patients: Prophylaxsis/treatment of DVT: (Range:2.0-3.0) Treatment of pulmonary embolism:(Range:2.0-3.0) Prevention of systemic embolism from: -tissue heart valves -acute myocardial infarction -valvular heart disease -atrial fibrillation (Range: 2.0-3.0) Mechanical prosthetic valves: (Range: 2.5-3.5) Shanthi Franks [facility] LAB POINT OF CARE TEST DOCKED DEVICE UNSOLICITED RESULTS [facility] [address] [place] [address] documented in this encounter Visit Diagnoses Diagnosis History of DVT (deep vein thrombosis)- Primary Personal history of venous thrombosis and embolism Chronic atrial fibrillation (HCC) Atrial fibrillation Anticoagulation management encounter Encounter for therapeutic drug 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 No Full Code 07/13/2010 12:29 PM 07/17/2010 4:03 PM Thi s order reflects the patients wishes and were consensually agreed upon. Question Answer Comments Discussion of Advance Directives occurred with: Not Discussed Does the patient have a Living Will? No Does the patient have Health Care Power of Med Aide? No Full Code 01/07/2010 6:23 AM 01/07/2010 2:05 PM This or emi reflects the patients wishes and were consensually agreed upon. Question Answer Comments Discussion of Advance Directives occurred with: Patient/Family Does the patient have a Living Will? No Does the patient have Health Care Power of Med Aide? No Full Code 10/15/2009 7:12 AM 10/15/2009 9:26 PM This order reflects the patients wishes and were consensually agreed upon. Care Teams Wedding Florist Relationship Specialty Start Date End Date Alfa Jaramillo MD [address] [place] [address] PCP - General 05/06/00 documented as of this encounter
--- OUTSIDE RECORDS SUMMARY | 2023-11-15 18:36 | External Medical Summary | Summary of Care ---
Author Name Unknown Organization [facility] Address [address] [facility] [place] [address] Phone [phone] Care Team Providers Care Small Animal Caretaker Name Role Phone Alfa Jaramillo MD Primary Care Provider [phone] Reason for Referral * Precert (Within 10 days (routine)) - Authorized Specialty Diagnoses / Procedures Referred By Contac t Referred To Contact Cardiac Studies Diagnoses Coronary artery disease of [place] artery of [place] heart with stable angina pectoris (HCC) GARCIA (dyspnea on exertion) Unstable angina (HCC) Permanent atrial fibrillation (HCC) Mild aortic stenosis HTN, goal below 130/80 Dyslipidemia, goal LDL below 70 Procedures ECHO, COMPLETE (2D), TRANS-THORACIC Apple Durbin CRNP [address] [place] [id number] Referral ID Status Reason Start Date Expiration Date V isits Requested Visits Authorized [id number] Authorized Precert 10/19/2023 999 999 Reason for Visit * Reason Comments Follow Up 5 month follow up. T wo days ago was out walking and threw up after while eating lunch. [place] shaky, SOB, chest pain and took one nitro which helped symptoms. Encounter Details Date Type Department Care Team (Late Contact Info) Description 10/19/2023 9:30 AM EDT Office Visit Cardiology, [facility] [address] [place] [address] Apple Durbin CRNP [address] [place] [phone] Unstable angina (HCC)*; Coronary artery disease of [place] artery of [place] heart with stable angina pectoris (HCC); GARCIA (dyspnea on exertion); Permanent atrial fibrillation (HCC); Mild aortic stenosis; HTN, goal below 130/80; Dyslipidemia, goal LDL below 70 Allergies Active Allergy Reactions Criticality Noted Date Comments Alendronate Sodium 06/24/2012 Burning sensation and difficulty breathing Proton Pump Inhibitors Hives 02/20/2002 nexium documented as of this encounter (statuses as of 10/19/2023) Medications Medication Sig Dispensed Refills Start Date [...] (PROAIR HFA) 108 (90 BASE) MCG/ACT inhalerIndications:B deonte, complicated Inhale 2 Puffs by mouth 4 [...] daily . 90 Tablet 3 03/27/2022 Active Saima Gudino SoloStar 300 UNIT/ML Subcutaneous Solution Pen-injector (Insulin Glargine (2 Unit Dial))Indications:DM (diabetes mellitus) type II, controlled, with peripheral vascular disorder (HCC) Inject 60 Units under the skin in the morning and 60 Units in the evening. Patient uses an insulin pump, but it failed this morning. Will get a new one on Sunday. 15 mL 1 10/20/2022 Active DexSciFluor Life Sciences G6 Sensor Use as directed. Change every 10 days. Supplied by Cardoc: [phone] Active DexSciFluor Life Sciences G6 Transmitter Use as directed. Change every 90 days. Supplied by Cardoc: [phone] Active Horizon Discovery G6 Purchasing And Claims Supervisor Device Use as directed. 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 therapy,Deep vein thrombosis (DVT) (HCC) TAKE ONE TABLET TO ONE AND ONE-HALF TABLET BY MOUTH EVERY DAY DIRECTED BY [facility]ADIN CLINIC 135 Tablet 3 09/13/2023 5 Active Insulin Aspart 100 UNIT/ML Injection Solution (NovoLOG)Indications :Type 2 diabetes mellitus with foot ulcer, with long-term current use of insulin ([facility]),DM (diabetes mellitus) type II, controlled, with peripheral vascular disorder ([facility]) FOR USE WITH AN INSULIN PUMP, UP TO 310 UNITS DAILY- dose increase 300 mL 11 10/01/2023 Active Accu-Chek Guide In Vitro Strip (Glucose Blood)Indications:Ty pe 2 diabetes mellitus with foot ulcer, with long-term current use of insulin ([facility]),DM (diabetes mellitus) type II, controlled, with peripheral vascular disorder ([facility]) Use to test blood glucose 4 times daily. E11.9 400 Strip 3 10/04/2023 Active Accu-Chek Guide Me w/Device KitIndications:Type 2 diabetes mellitus with foot ulcer, with long-term current use of insulin ([facility]),DM (diabetes mellitus) type II, controlled, with peripheral vascular disorder ([facility]) Use as directed. 0 10/04/2023 Active Accu-Chek [...] as of this encounter (statuses as of 10/19/2023) Active Problems Problem Noted Date Diagnosed Date Type 2 diabetes mellitus with foot ulcer (CODE) 09/19/2022 Gastro-esophageal reflux disease without esophag itis 03/27/2022 Major depressive disorder, recurrent, unspecifie d 02/10/2021 DM (diabetes mellitus) type II, controlled, with peripheral vascular disorder 12/08/2020 Coronary artery disease of n ative artery of crow creek heart with stable angina pectoris 12/08/2020 History [...] Per Lipid Taxonomy. Cervical spinal stenosis 08/21/2008 half-way current use of anticoagulant therapy 0 05/03/2005 documented as of this encounter (statuses as of 10/19/2023) Resolved Problems Problem Noted Date Diagnosed Date [...] as of this encounter (statuses as of 10/19/2023) Immunizations Name Administration Dates Next Due COVID-19 mRNA, LNP-s, No Pre serve, 2-Dose Series (Moderna) 10/13/2020,09/15/2020 COVID-19, mRNA, LNP-s, PF, B ooster, 100mcg/0.5mg (Moderna) 07/20/2021 Covid-19, Mrna, Lnp-s, Pf, B ivalent, 30 Mcg, IM, 12 yrs and above (Pfizer) 05/08/2022 Pneumococcal Conjugate Vacc, 13 Valent (Prevnar) 01/20/2016 Pneumococcal Polysaccharide PPV23 (Pneumovax) 01/15/2015,09/18/2006,06/06/2001 Season Influenza, Quad, PF, Adjuvanted, 65+ Yrs, IM (FLUAD) 06/18/2020 Seasonal Influenza Virus Vac cine, Unspecified Formulation 05/08/2019,04/09/2018,06/21/2017 Seasonal Influenza, PF, 6 M & above, IM , (FluLaval or Fluzone) 05/08/2019,04/09/2018,06/21/2017 Seasonal Influenza, Quadriva lent Hd (Fluzone Hd) 04/04/2023,05/08/2022 Seasonal Influenza, Quadriva lent, No Preserve, IM 05/20/2015 Seasonal Influenza, Split, I IV3, With Preserve, Inj 06/09/2016,05/22/2014,05/05/2013,04/30,05/22/2011,06/07/2010,07/07/2008 ,05/20/2007,06/07/2006,07/04/2005,07/06,05/26/2002,06/06/2001 Seasonal Influenza, Trivalen t, Adjuvanted, 65+ yrs 05/04/2019(Deferred: Patient Refused) TD - Tetanus/Diptheria (ADULT) 02/09/1998 TD, Preservative Free 07/15/2008 TDAP (age 10 and older)(Boostrix) 09/15/2014 Varicella Zoster Vaccine (Adult) 02/23/2017 documented as of this encounter Social History Tobacco Use Types Packs/Day Years Used Date Smoking Tobacco: Former Cigarettes 2 36 0 04/19/1979 - 04/19/2015 Smokeless Tobacco: Never Tobacco Cessation:Counseling Given: Not Answered Alcohol Use Standard Drinks/Week Comments Not Currently [...] Sign Reading Time Taken Comments Blood Pressure 106/62 10/19/2023 9:23 AM EDT Pulse 76 10/19/2023 9:23 AM EDT Temperature - - Respiratory Rate 16 10/19/2023 9:23 AM EDT Oxygen Saturation - - Inhaled Oxygen Concentration - - Weight 86 kg (189 lb 8 oz) 10/19/2023 9:23 AM ED T Height - - Body Mass Index 31.53 09/12/2023 12:50 PM EST documented in this encounter Functional Status Functional [...] (15 years old or older) No 05/02/20 Cognitive Status Response Date of Assessm ent Because of a physical, menta l, or emotional condition, do you have serious difficulty concentrating, remembering, or making decisions? (5 years old or older) No 05/02/2019 documented as of this encounter Patient Instructions * Patient Instructions* Apple Durbin CRNP - 10/19/2023 9:45 AM EDT We are setting you up for a heart cath due to ongoing chest pain and shortness of breath. Labs and chest xray today Start aspirin 81 mg daily Hold Metformin 2 days prior to cath Hold Ozempic 7 days prior to cath Hold anticoagulation per cath instructions Sublingual nitroglycerin was sent to your pharmacy- should symptoms return you should try to take asublingual nitroglycerin (sit down and rest prior). If symptoms improve after 1 dose please alert our office. If symptoms do not improve you can take a 2nd dose 5 minutes later. I would then recommend calling 911 if symptoms do not improve after that 2nd dose. Refrain from NSAID use Over the next few weeks leading up to your heart catheterization please take it easy and try not todo any strenuous activities that could provoke your symptoms. [facility] Cardiology number: (ask to be connected to [facility] cardiology) or send me a C[employer] message with any concerns. documented in this encounter Progress Notes * Apple Durbin CRNP - 10/19/2023 9:30 AM EDT Cardiology Outpatient Visit 10/19/2023 Primary Interlocking And Signal Mechanic: Dr. Arizmendi Past medical history: Permanent atrial fibrillation--on metoprolol and digoxin. Intolerance to higher doses of beta-adis due to COPD FLA7GG2-PGFb score of 5 (age 1, female, HTN, CAD)--on Coumadin Presumed coronary artery disease Abnormal nuclear stress, 2019-- medically managed, no history [...] unchanged from previous echo dated 05/2023. Current Outpatient Medications Medication Sig Dispense Refill [...] directed. Change every 10 days. Supplied by Cardoc: [phone] Dexcom G6 Transmitter Use as directed. Change every 90 days. Supplied by Cardoc: [phone] DexSciFluor Life Sciences G6 Purchasing And Claims Supervisor Device Use as directed. Supplied by Cardoc: [phone] No current facility-administered medications for this visit. Past Medical History: Diagnosis Date Asthma with [...] LDL below 100 07/15/2009 Per Lipid Taxonomy. 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) use of anticoagulants Major depressive disorder, single episode, unspecified 12/08/2020 More specified/recent code listed on PL Myalgia and myositis Osteoarthrosis, unspecified whether generalized or localized, lower leg Other B-complex deficiencies Phlebitis and thrombophlebitis of other deep vessels of lower extremities Right leg x 2 Past Surgical History: Procedure Laterality Date ADJACENT TISSUE TRANS >10SQCM TRUNK Left 04/07/2015 ADJACENT TISSUE TRANSFER TRUNK 10.1 TO 30SQ CM performed by Buffy Castro MD at OR [facility] AMPUTATION OF TOE Right 05/02/2019 AMPUTATION TOE METATARSOPHALANGEAL JOINT performed by Kenny Archibald DPM at OR [facility] ARTHROPLASTY KNEE TOTAL Right 05/2016 Dr Reynoso BX LYMPH NODE DEEP AXIL Left 04/07/2015 BIOPSY LYMPH NODE DEEP AXILLARY OPEN performed by Buffy Castro MD at OR [facility] CARPAL TUNNEL SURGERY 10/15/2009 NEUROPLASTY MEDIAN NERVE AT CARPAL TUNNEL performed by CHELSI DICKERSON at OR [facility] CARPAL TUNNEL SURGERY 01/07/2010 NEUROPLASTY MEDIAN NERVE AT CARPAL TUNNEL performed by CHELSI DICKERSON at OR [facility] COLONOSCOPY 12/09/2009 adenomatous polyps repeat [...] performed by Anselmo Sung MD at ENDOSCOPY [facility] COLONOSCOPY, DIAGNOSTIC (RECTUM) 03/21/2018 adenomatous polyp, diverticulosis, repeat 2 yrs/COLONOSCOPY FLEXIBLE PROXIMAL DIAGNOSTIC performed by Anselmo Sung MD at ENDOSCOPY [facility] COLONOSCOPY, DIAGNOSTIC (RECTUM) 01/15/2014 COLONOSCOPY FLEXIBLE PROXIMAL DIAGNOSTIC performed by Anselmo Sung MD at ENDOSCOPY [facility] COLONOSCOPY, DIAGNOSTIC (RECTUM) 11/16/2020 Hemorrhoids, diverticulosis sigmoid colon, multi polyps / biopsy benign adenomatous polyps / 1 yearrecall / COLONOSCOPY FLEXIBLE PROXIMAL DIAGNOSTIC performed by Anselmo Sung MD at [facility] COLONOSCOPY, DIAGNOSTIC (RECTUM) 09/18/2023 multiple small and large mouthed diverticula/biopsies show adenomatous polyps/recall 10 years/COLONOSCOPY FLEXIBLE PROXIMAL DIAGNOSTIC performed by Anselmo Sung MD at ENDOSCOPY [facility] COLONOSCOPY/REMOVE LESION 03/16/2009 repeat 6 months DILATION AND CURETTAGE (D&C) 1996 D&C ENDO DECOMPRESS SPINAL CORD W/LAMINOTOMY, CERVICAL 07/13/2010 LAMINECTOMY DECOMPRESSION SPINAL CORD POSTERIOR CERVICAL performed by CHELSI DICKERSON at OR [facility] IDENTIFY SENTINEL NODE, RADIOACTIVE TRACER Left 04/07/2015 INJECTION PROCEDURE FOR IDENTIFICATION SENTINEL NODE performed by Buffy Castro MD at [facility] KNEE ARTHROSCOPY, DIAGNOSTIC 12/2012 Left knee [...] performed by Buffy Castro MD at OR [facility] NECK SPINE FUSION (CERV, BELOW C2) 08/21/2008 ARTHRODESIS SPINE ANTERIOR CERVICAL performed by CHELSI DICKERSON at [facility] NECK SPINE FUSION (CERV, BELOW C2) 07/13/2010 ARTHRODESIS SPINE POSTERIOR CERVICAL performed by CHELSI DICKERSON at OR [facility] RADIATION THERAPY MANAGEMENT Left 07/10/2015 REMOVE NECK SPINE LAMINA, 1-2 SEGS 07/13/2010 LAMINECTOMY POSTERIOR CERVICAL ONE OR TWO VERTEBRAL SEGMENTS performed by CHELSI DICKERSON at [facility] SENTINEL LYMPH NODE BIOPSY PERFORMED Left 04/07/2015 SPINE SEG FIX, POST, 3-6 SEG, INSERT 07/13/2010 POSTERIOR SPINE SEGMENTAL INSTRUMENTATION 3 TO 6 PSF performed by CHELSI DICKERSON at OR [facility] Social History Tobacco Use Smoking status: Former Current packs/day: 0.00 Average packs/day: 2.0 packs/day for 36.0 years (72.0 ttl pk-yrs) Types: Cigarettes Start date: 04/19/1979 Quit date: 04/19/2015 Years since quittin.5 Smokeless tobacco: Never Vaping Use Vaping Use: Never used Substance Use Topics Alcohol use: Not Currently Drug use: No Review of patient's allergies indicates: Allergen Reactions [...] higher doses of beta-adis due to COPD -[id number] score of 5 (age 1, female, HTN, CAD) Continue metoprolol and digoxin as ordered. Dig level ordered for assessment. Continue Coumadin, INR goal between 2-3. 2. Coronary artery disease of [place] artery of [place] heart with stable angina pectoris (HCC) -Presumed coronary artery disease with worsening chest pain, GARCIA, and function capacity. -Abnormal nuclear stress, 2018-- medically managed, no history [...] Patient prefers catheterization to be done at [facility]. Scheduled for 11/12/2023. Patient aware that a professional driver to her cardiac cath is required. [...] the performance of separately billed services. AUDELIA Ware, Department of Cardiology This chart was completed in part utilizing [employer]PHI Speech Voice Recognition Software. Grammatical errors, random word insertions, prounoun errors, and incomplete sentences are an occasional consequence of this system due to software limitations, ambient noise, and hardware issues. Any formal questions or concerns about the content, text, or information contained within the body of this dictation should be directly addressed to the provider for clarification. documented in this encounter Procedure Notes * Dilan Womack MD - 10/19/2023 9:31 AM EDTAssociated Order(s): EKG COMPLETE (TRACING AND INTERP) REASON FOR STUDY: chest pain;chest pain CONCLUSIONS: Atrial fibrillation ST & T wave abnormality, consider lateral ischemia Abnormal ECG When compared with ECG of 18-May-2023 10:29, No significant change was found Ventricular Rate: 89 Atrial Rate: 267 QRS Duration: 88 QT/QTc: 372/452 ms P-R-T [place]: 0 : 21 : -20 degrees documented in this encounter Nursing Notes * Narciso Herbert LPN - 10/19/2023 9:21 AM EDT Patient identified by full name and date of Chief Complaint Patient presents with Follow Up 5 month follow up. Two days ago was out walking and threw up after while eating lunch. [place] shaky, SOB, chest pain and took one nitro which helped symptoms. Examination Room: 4 Name: Graciela Mobley Date of : (1950). Reason for Visit: 5 month follow up Interim Hospitalization(s): Denies Problems/Concerns: See chief complaint Chest Pain/SOB: See chief complaint [facility] Discussed: Yes My [facility] is a way you can talk to your provider online through e-mail. Would you like to sign up? I can activate it for you? ALREADY ACTIVE Patient was instructed to not get up on the exam table until directed and assisted by their provider; patient is to remain seated in the chair/ wheelchair/ exam table for fall prevention and safety reasons. Patient is aware to have assistance to step down off exam table with personnel. Patient voiced full comprehension of instructions. documented in this encounter Plan of Treatment Upcoming Encounters Date Type Department Care Team (Latest Contact Info) Description 10/19/2023 5:10 PM EDT Anticoagulation Pharmacy, [place] [address] [place] [address] [place], [facility] [address] [place] [address] 10/24/2023 2:30 PM EDT Anticoagulation Pharmacy, [place] [address] [place] [address] [place], [facility] [address] [place] [address] 10/24/2023 2:40 PM EDT Office Visit Pharmacy, [place] [address] [place] [address] [place], [facility] [address] [place] [address] 10/30/2023 8:45 AM EDT Office Visit Podiatry [address] [id number] Kenny Archibald, [address] [address] 11/12/2023 9:00 AM EDT Hospital Encounter [facility], Cardiac Recovery Suite Waiting Unit, [address] [place] [facility] [address] Huey Barrera MD [address] [place] [facility] [address] 11/12/2023 9:00 AM EDT - 11/12/2023 10:00 AM EDT Surgery [facility] Waiting [facility], Cardiac Recovery Suite Waiting Unit, [address] [place] [facility] [place] [address] Huey Barrera MD [address] [place] [address] CORONARY ANGIOGRAPHY W/LEFT HEART CATH 11/12/2023 9:00 AM EDT Office Visit Cardiology [facility] [place] [address] [place] [address] [place], Cardiac Recovery [facility] [address] [place] [address] 01/03/2024 1:00 PM EDT Office Visit [facility] [address] [place] [id number] Natalia Heller PA-C [address] [place] [address] Pending Results Name Type Priority Associated Diagnoses Date /Time TSH WITH FREE T4 IF INDICATED Lab Routine Coronary artery disease of [place] artery of [place] heart with stable angina pectoris (HCC) GARCIA (dyspnea on exertion) Unstable angina (HCC) Permanent atrial fibrillation (HCC) Mild aortic stenosis HTN, goal below 130/80 Dyslipidemia, goal LDL below 70 10/19/2023 10:23 AM EDT MAGNESIUM Lab Routine Coronary artery disease of [place] artery of [place] heart with stable angina pectoris (HCC) GARCIA (dyspnea on exertion) Unstable angina (HCC) Permanent atrial fibrillation (HCC) Mild aortic stenosis HTN, goal below 130/80 Dyslipidemia, goal LDL below 70 10/19/2023 10:23 AM EDT DIGOXIN LEVEL Lab Routine Coronary artery disease of [place] artery of [place] heart with stable angina pectoris (HCC) GARCIA (dyspnea on exertion) Unstable angina (HCC) Permanent atrial fibrillation (HCC) Mild aortic stenosis HTN, goal below 130/80 Dyslipidemia, goal LDL below 70 10/19/2023 10:23 AM EDT LIPID PANEL WITH DIRECT LDL IF TG IS HIGH Lab Routine Coronary artery disease of [place] artery of [place] heart with stable angina pectoris (HCC) GARCIA (dyspnea on exertion) Unstable angina (HCC) Permanent atrial fibrillation (HCC) Mild aortic stenosis HTN, goal below 130/80 Dyslipidemia, goal LDL below 70 10/19/2023 10:23 AM EDT XR CHEST 2 VIEWS Medical Imaging Routine Coronary artery disease of [place] artery of [place] heart with stable angina pectoris (HCC) GARCIA (dyspnea on exertion) Unstable angina (HCC) Permanent atrial fibrillation (HCC) Mild aortic stenosis HTN, goal below 130/80 Dyslipidemia, goal LDL below 70 10/19/2023 10:43 AM EDT Scheduled Orders Name Type Priority Associated Diagnoses Orde r Schedule TSH WITH FREE T4 IF INDICATED Lab Routine Coronary artery disease of [place] artery of [place] heart with stable angina pectoris (HCC) GARCIA (dyspnea on exertion) Unstable angina (HCC) Permanent atrial fibrillation (HCC) Mild aortic stenosis HTN, goal below 130/80 Dyslipidemia, goal LDL below 70 Expected: 10/19/2023, Expires: 10/18/2024 MAGNESIUM Lab Routine Coronary artery disease of [place] artery of [place] heart with stable angina pectoris (HCC) GARCIA (dyspnea on exertion) Unstable angina (HCC) Permanent atrial fibrillation (HCC) Mild aortic stenosis HTN, goal below 130/80 Dyslipidemia, goal LDL below 70 Expected: 10/19/2023, Expires: 10/18/2024 DIGOXIN LEVEL Lab Routine Coronary artery disease of [place] artery of [place] heart with stable angina pectoris (HCC) GARCIA (dyspnea on exertion) Unstable angina (HCC) Permanent atrial fibrillation (HCC) Mild aortic stenosis HTN, goal below 130/80 Dyslipidemia, goal LDL below 70 Expected: 10/19/2023, Expires: 10/18/2024 ECHO, COMPLETE (2D), TRANS-THORACIC Echocardiology Routine Coronary artery disease of [place] artery of [place] heart with stable angina pectoris (HCC) GARCIA (dyspnea on exertion) Unstable angina (HCC) Permanent atrial fibrillation (HCC) Mild aortic stenosis HTN, goal below 130/80 Dyslipidemia, goal LDL below 70 Expected: 10/19/2023, Expires: 10/18/2024 LIPID PANEL WITH DIRECT LDL IF TG IS HIGH Lab Routine Coronary artery disease of [place] artery of [place] heart with stable angina pectoris (HCC) GARCIA (dyspnea on exertion) Unstable angina (HCC) Permanent atrial fibrillation (HCC) Mild aortic stenosis HTN, goal below 130/80 Dyslipidemia, goal LDL below 70 Expected: 10/19/2023, Expires: 10/18/2024 CARDIAC CATH-CARDIOLOGY ONLY Procedures Routine Coronary artery disease of [place] artery of [place] heart with stable angina pectoris (HCC) GARCIA (dyspnea on exertion) Unstable angina (HCC) Permanent atrial fibrillation (HCC) Mild aortic stenosis HTN, goal below 130/80 Dyslipidemia, goal LDL below 70 Ordered: 10/19/2023 Scheduled Procedures Name Priority Associated Diagnoses Date/Ti or CORONARY ANGIOGRAPHY W/LEFT HEART CATH Unstable angina [...] 06/07/2023, 110 08/2021, 06/06/2022, Additional history exists DIG LEVEL FOR MEDICATION MONITORING YEARLY 07/05/2024 07/05/2023, 09/19/2022, 03/20/2022, Additional history exists DTaP,Tdap,and Td Vaccines (2 - Td or Tdap) 09/15/2024 09/15/2014, 07/15/2008, 02/09/1998 O2 ASSESSMENT COMPLETED IN PAST YEAR FOR COPD 09/18/2024 09/18/2023 GFR 10/18/2024 10/19/2023, 08/07, 07/05/2023, Additional history exists DXA Scan 02/19/2025 02/19/2023, 02/03, 05/12/2020, Additional history exists Colonoscopy 09/18/2033 09/18/2023, 09/06, 11/16/2020, Additional history exists Colorectal Cancer Screening 09/18/2033 Pneumococcal Vaccine: 65+ Years Completed 01/20/2016, 01/15/2015, 09/18/2006, Additional history exists VITAMIN D LEVEL ONCE IN A LIFETIME-USE SMARTSET# [id number] Completed 06/18/2020, 07/25/2019, 05/20/2015, Additional history exists LUNG CANCER SCREENING - USE SMARTSET [id number] Completed 12/22/2022, 12/09/2021, 12/24/2020, Additional history exists [...] this encounter Medical Devices Implanted Type Area Steel Inspector Device Identifier Shelf Expiration Date Model / Serial / Lot Graft Cervical 6x8 [id number] - [id number] Implanted:Qt y: 2 on 08/21/2008 at OR [facility] Tissue - Human Spine Cervical [employer] [id number] / / Screw Spine 14mm [id number] - [id number] Implanted:Qt y: 2 on 08/21/2008 at OR [facility] N/A: Spine Cervical [employer] DEPUY 1868-50-014 / / Depuy Lynch 14 Mm Sd Con Scr Implanted:Qt y: 2 on 08/21/2008 at OR [facility] N/A: Spine Cervical [employer] [id number] / / Description:Depuy skyline 14 mm SD con SCR 34 Mm Plate Implanted:Qt y: 1 on 08/21/2008 at OR [facility] N/A: Spine Cervical / / Description:34 mm Depuy plat e 14 Mm Variable Rescue Implanted:Qt y: 2 on 08/21/2008 at OR [facility] N/A: Spine Cervical 54-014 / / Description:14 mm variable r escue Screw 3.5x14 Mntr Fa [id number] - [id number] Implanted:Qt y: 10 on 07/13/2010 [facility] [facility] N/A: Spine Cervical JNJ : ETHICON CARDIOVATIONS [id number] / / Devaughn [id number] - [id number] Implanted:Qt y: 1 on 07/13/2010 at OR [facility] N/A: Spine Cervical JNJ : ETHICON CARDIOVATIONS [id number] / / Screw Inner Mntr [id number] - [id number] Implanted:Qt y: 8 on 07/13/2010 at OR [facility] N/A: Spine Cervical JNJ : ETHICON CARDIOVATIONS [id number] / / Nut Outer Xcon [id number] - [id number] Implanted:Qt y: 2 on 07/13/2010 at OR [facility] N/A: Spine Cervical JNJ : ETHICON CARDIOVATIONS [id number] / / Screw Inner Xcon [id number] - [id number] Implanted:Qt y: 2 on 07/13/2010 at OR [facility] N/A: Spine Cervical JNJ : ETHICON CARDIOVATIONS [id number] / / Plate 35mm Xcon [id number] - [id number] Implanted:Qt y: 1 on 07/13/2010 at OR [facility] N/A: Spine Cervical JNJ : ETHICON CARDIOVATIONS [id number] / / documented as of this encounter Procedures Procedure Name Priority Date/Time Associated Diagnosis Comments MN ECG ROUTINE ECG W/LEAST 12 LDS W/I&R Routine 10/19/2023 9:31 AM EDT Coronary artery disease of [place] artery of [place] heart with stable angina pectoris (HCC) GARCIA (dyspnea on exertion) Unstable angina (HCC) Permanent atrial fibrillation (HCC) Mild aortic stenosis HTN, goal below 130/80 Dyslipidemia, goal LDL below 70 documented in this encounter Results * (ABNORMAL) APTT (10/19/2023 10:23 AM EDT) aPTT 45(H) 21 - 38 seconds 10/19/2023 11:12 AM EDT LAB[facility]ATORY [facility] 57-10 Blood Venous blood specimen / Unknown Venipuncture / Unknown 10/19/2023 10:23 AM EDT 10/19/2023 10:23 AM EDT Narrative [facility]ORY [facility] 57-10 - 10/19/2023 11:12 AM EDT Anticoagulation may affect testing. Refer to [employer] Test Catalog for a list of effects. Apple SERVINNP LAB BLOOD ORDER JENA LAB[facility]AT[facility] [address] [place] [address] * (ABNORMAL) COMPREHENSIVE METABOLIC PANEL (10/19/2023 10:23 AM EDT) BUN 21(H) 6 - 20 mg/dL 10/19/2023 12:18 PM EDT LAB[facility] [place] [facility] 57[facility]10 Creatinine 0.8 0.5 - 1.0 mg/dL 10/19/2023 12:18 PM EDT [facility] [place] [facility] 57[facility]10 Estimated Glomerular Filtration Rate 76 >=60 mL/min 10/19/2023 12:18 PM EDT [facility] [place] [facility] 57-10 Comment:eGFR is calculated b ased on the CKD-EPI 2020 equation Sodium 138 135 - 146 mmol/L 10/19/2023 12:18 PM EDT [facility] [place] [facility] 57-10 Potassium 4.5 3.5 - 5.1 mmol/L 10/19/2023 12:18 PM EDT [facility] [place] [facility] 57-10 Chloride 100 98 - 107 mmol/L 10/19/2023 12:18 PM EDT LAB[facility] [place] [facility] 57-10 CO2 27 22 - 32 mmol/L 10/19/2023 12:18 PM EDT [facility] [place] [facility] 57-10 Anion Gap 11 7 - 15 mmol/L 10/19/2023 12:18 PM EDT [facility] Glucose 254(H) 70 - 120 mg/dL 10/19/2023 12:18 PM EDT [facility] [place] [facility]10 Albumin 3.7(L) 3.8 - 5.0 g/dL 10/19/2023 12:18 PM EDT LAB[facility]ATORY [facility] 57-10 AST 48(H) 10 - 35 U/L 10/19/2023 12:18 PM EDT [facility]ORY [facility] 57-10 Alkaline Phosphatase 112 35 - 130 U/L 10/19/2023 12:18 PM EDT [facility] 57-10 Bilirubin, Total 0.5 <=1.2 mg/dL 10/19/2023 12:18 PM EDT [facility] 57-10 Calcium 9.5 8.4 - 10.2 mg/dL 10/19/2023 12:18 PM EDT [facility] [place] [facility]10 Protein 7.2 6.0 - 8.3 g/dL 10/19/2023 12:18 PM EDT LABORATORY [place] 57-10 ALT 27 10 - 35 U/L 10/19/2023 12:18 PM EDT LABORATORY [place] 57-10 Blood Venous blood specimen / Unknown Venipuncture / Unknown 10/19/2023 10:23 AM EDT 10/19/2023 10:23 AM EDT Apple WIN LAB BLOOD ORDER JENA LABORATORY [place] 57-[address] [place] [id number] * CBC (10/19/2023 10:23 AM EDT) WBC 10.01 4.00 - 10.80 K/uL 10/19/2023 11:19 AM EDT LAB[facility]ORY [facility] 57-10 RBC 4.29 3.85 - 5.15 M/uL 10/19/2023 11:19 AM EDT LABORATORY [place] 57-10 HGB 12.8 12.0 - 15.3 g/dL 10/19/2023 11:19 AM EDT LABORATORY [place] 57-10 HCT 39.5 36.0 - 45.2 % 10/19/2023 11:19 AM EDT [facility] MCV 92.1 81.5 - 97.5 fL 10/19/2023 11:19 AM EDT [facility] MCH 29.8 27.0 - 34.0 pg 10/19/2023 11:19 AM EDT [facility] MCHC 32.4 32.0 - 36.0 g/dL 10/19/2023 11:19 AM EDT LABORATORY [place] 57-10 RDW 16.7 11.5 - 15.5 % 10/19/2023 11:19 AM EDT LABORATORY [place] 57-10 PLT 177 140 - 400 K/uL 10/19/2023 11:19 AM EDT LABORATORY [place] 57-10 MPV 11.9 6.6 - 11.1 fL 10/19/2023 11:19 AM EDT [facility] Blood Venous blood specimen / Unknown Venipuncture / Unknown 10/19/2023 10:23 AM EDT 10/19/2023 10:23 AM EDT Apple WIN LAB BLOOD ORDER JENA LAB[facility]ATORY [place] [address] [place] [address] * EKG COMPLETE (TRACING AND INTERP) (10/19/2023 9:31 AM EDT) 10/19/2023 9:31 AM EDT Narrative Procedure Note Dilan Womack MD - 10/19/2023 9:31 AM EDT REASON FOR STUDY: chest pain;chest pain CONCLUSIONS: Atrial fibrillation ST & T wave abnormality, consider lateral ischemia Abnormal ECG When compared with ECG of 18-May-2023 10:29, No significant change was found Ventricular Rate: 89 Atrial Rate: 267 QRS Duration: 88 QT/QTc: 372/452 ms P-R-T Sterling: 0 : 21 : -20 degrees Apple WIN EKG [facility] documented in this encounter Visit Diagnoses Diagnosis Unstable angina (HCC)- Primary Intermediate coronary syndrome Coronary artery disease of [place] artery of [place] heart with stable angina pectoris (HCC) GARCIA (dyspnea on exertion) Other dyspnea and respiratory abnormality Permanent atrial fibrillation (HCC) Atrial fibrillation Mild aortic stenosis Aortic valve disorders HTN, goal below 130/80 Unspecified essential hypertension Dyslipidemia, goal LDL below 70 Other and unspecified hyperlipidemia Unstable angina (HCC) Intermediate coronary syndrome CAD (coronary artery disease) Coronary atherosclerosis of unspecified type of vessel, crow creek or graft documented in this encounter Advance [...] the patient have Health Care Power of Pastoral Worker? No Full Code 07/13/2010 12:29 PM 07/17/2010 4:03 PM Thi s order reflects the patients wishes and were consensually agreed upon. Question Answer Comments Discussion of Advance Directives occurred with: Not Discussed Does the patient have a Living Will? No Does the patient have Health Care Power of Pastoral Worker? No Full Code 01/07/2010 6:23 AM 01/07/2010 2:05 PM This or emi reflects the patients wishes and were consensually agreed upon. Question Answer Comments Discussion of Advance Directives occurred with: Patient/Family Does the patient have a Living Will? No Does the patient have Health Care Power of Pastoral Worker? No Full Code 10/15/2009 7:12 AM 10/15/2009 9:26 PM This order reflects the patients wishes and were consensually agreed upon. Care Teams Small Animal Caretaker Relationship Specialty Start Date End Date Alfa Jaramillo MD [address] [place] [address] PCP - General 05/06/00 documented as of this encounter
--- OUTSIDE RECORDS SUMMARY | 2023-11-15 18:36 | External Medical Summary | Summary of Care ---
Author Name Unknown Organization [facility] Address [address] [facility] [place] [address] Phone [phone] Care Team Providers Care Throat Cutter Name Role Phone Alfa Jaramillo MD Primary Care Provider [phone]- [phone] Reason for Visit * Reason Comments Procedure Encounter Details Date Type Department Care Team (Latest Contact Info) Description 10/19/2023 5:10 PM EDT Anticoagulation Pharmacy, [address] [address] [facility] [address] [place] [address] History of DVT (deep vein thrombosis)*; Chronic [...] directed. Change every 10 days. Supplied by [employer]: [phone] 0 Active Dexcom G6 Transmitter Use as directed. Change every 90 days. Supplied by [employer]: [phone] 0 Active Dexcom G6 Seed Cleaning Machine Operator Device Use as directed. Supplied by [employer]: [phone] 0 Active Fluticasone Propionate 50 MCG/ACT Nasal [...] A DAY WITH FOOD 180 Tablet 11/16/2022 4 Active Metoprolol Succinate ER 50 [...] Warfarin Sodium 5 MG Oral Tablet (Coumadin)Indication s:[facility] current use of anticoagulant therapy,Deep vein thrombosis (DVT) ([facility]) TAKE ONE TABLET TO ONE AND ONE-HALF TABLET BY MOUTH EVERY DAY DIRECTED BY [facility] 135 Tablet 3 09/13/2023 5 Active Insulin Aspart 100 UNIT/ML Injection Solution (NovoLOG)Indications :Type 2 diabetes mellitus with foot ulcer, with long-term current use of insulin ([facility]),DM (diabetes mellitus) type II, controlled, with peripheral vascular disorder ([facility]) FOR USE WITH AN INSULIN PUMP, UP TO 310 UNITS DAILY- dose increase 300 mL 11 10/01/2023 Active Accu-Chek Guide In Vitro Strip (Glucose Blood)Indications:Ty pe 2 diabetes mellitus with foot ulcer, with long-term current use of insulin ([facility]),DM (diabetes mellitus) type II, controlled, with peripheral vascular disorder ([facility]) Use to test blood glucose 4 times daily. E11.9 400 Strip 3 10/04/2023 Active Accu-Chek Guide Me w/Device KitIndications:Type 2 diabetes mellitus with foot ulcer, with long-term current use of insulin ([facility]),DM (diabetes mellitus) type II, controlled, with peripheral vascular disorder ([facility]) Use as directed. 0 10/04/2023 Active Accu-Chek Softclix LancetsIndications:T ype 2 diabetes mellitus with foot ulcer, with long-term current use of insulin ([facility]),DM (diabetes mellitus) type II, controlled, with peripheral vascular disorder ([facility]) Use to test blood glucose [...] artery disease of n ative artery of [place] heart with stable angina pectoris 12/08/2020 History [...] Per Lipid Taxonomy. Cervical spinal stenosis 08/21/2008 [facility] current use of anticoagulant therapy 0 05/03/2005 [...] this encounter Progress Notes * Shanthi Franks, [facility] - 10/19/2023 1:09 PM EDT Patient is having a cath on 11/12/23. Patient has hx of DVT and requires Lovenox bridging. Patient used Lovenox before in 2020. See letters section for specific lovenox bridge instructions. Patient then gave a verbal and actual demonstration of technique & 10 step process, alternationof injection site, side effects and understanding of dosing calendar, and disposal of syringes & needles. Patient self-administered own LMWH injection in clinic without incident. No ADR reported. Actual Body Weight 86kg Serum creatinine: 0.8 mg/dL 10/19/23 1023 Estimated creatinine clearance: 66.8 mL/min Hemoglobin Results: Recent Labs Units 10/19/23 1023 03/20/22 0935 02/10/21 1003 HGB g/dL 12.8 14.5 13.3 Platelets: Recent Labs Units 10/19/23 1023 03/20/22 0935 02/10/21 1003 PLT K/uL 177 204 234 Lovenox Dose: 80 mg Q12h Will provide bridge instructions to patient on Oct 23. Will send script to pharmacy as well at thattime. Shanthi Franks [facility] Clinical Pharmacist Medication Therapy Disease Management 10/19/2023, 1:09 PM documented in this encounter Plan of Treatment Upcoming Encounters Date Type Department Care Team (Latest Contact Info) Description 10/24/2023 2:30 PM EDT Anticoagulation Pharmacy, [place] [address] [place] [address] [facility] [address] 10/24/2023 2:40 PM EDT Office Visit Pharmacy, [place] [address] [place] [address] [place] [address] [place] [address] 10/25/2023 8:00 AM EDT Cardiac Studies Cardiac Studies, [facility] [address] [place] [address] 10/30/2023 8:45 AM EDT Office Visit Podiatry [address] [place] [id number] Kenny Archibald, [facility] [address] [place] [address] 11/12/2023 9:00 AM EDT Hospital Encounter [facility] Waiting [facility], Cardiac Recovery Suite Waiting Unit, [address] [place] [address] [facility]rera [facility] [address] [facility] [address] 11/12/2023 9:00 AM EDT - 11/12/2023 10:00 AM EDT Surgery CRS Waiting [facility], Cardiac Recovery Suite Waiting Unit, [address] [place] [address] Huey Barrera MD [address] [place] [address] CORONARY ANGIOGRAPHY W/LEFT HEART CATH 11/12/2023 9:00 AM EDT Office Visit Cardiology [facility] [address] [place] [address] [facility] Cardiac Recovery [facility] [address] [place], [place] [id number] 12/11/2023 10:00 AM EDT Office Visit Cardiology, [facility] [address] [place] [address] Apple Durbin CRNP [address] [place] [address] 01/03/2024 1:00 PM EDT Office Visit [place] [address] [place] [phone] Natalia Heller PA-C [address] [place] [address] Scheduled Procedures Name Priority Associated Diagnoses Date/Ti [...] 06/07/2024 06/07/2023, 1108/2021, 06/06/2022, Additional history exists DIG LEVEL FOR [...] D LEVEL ONCE IN A LIFETIME-USE SMARTSET# [id number] Completed 06/18/2020, 07/25/2019, 05/20/2015, Additional history exists LUNG CANCER SCREENING - USE SMARTSET [id number] Completed 12/22/2022, 12/09/2021, 12/24/2020, Additional history exists [...] this encounter Medical Devices Implanted Type Area Special Procedure Technologist Device Identifier Shelf Expiration Date Model / Serial / Lot Graft Cervical 6x8 [id number] - [id number] Implanted:Qt y: 2 on 08/21/2008 at OR [facility] Tissue - Human Spine Cervical [employer] [id number] / / Screw Spine 14mm [id number] - [id number] Implanted:Qt y: 2 on 08/21/2008 at OR [facility] N/A: Spine Cervical [employer] DEPUY [id number] / / Depuy [place] 14 Mm Sd Con Scr Implanted:Qt y: 2 on 08/21/2008 at OR [facility] N/A: Spine Cervical [employer] DEPUY 8-60-014 / / Description:Depuy skyline 14 mm SD con SCR 34 Mm Plate Implanted:Qt y: 1 on 08/21/2008 at OR [facility] N/A: Spine Cervical [id number] / / Description:34 mm Depuy plat e 14 Mm Variable Rescue Implanted:Qt y: 2 on 08/21/2008 at OR [facility] N/A: Spine Cervical [id number] / / Description:14 mm variable r escue Screw 3.5x14 Mntr Fa [id number] - [id number] Implanted:Qt y: 10 on 07/13/2010 at OR [facility] N/A: Spine Cervical JNJ : ETHICON CARDIOVATIONS [id number] / / Devaughn 3.1f515qx [id number] - [id number] Implanted:Qt y: 1 on 07/13/2010 at OR [facility] N/A: Spine Cervical JNJ : ETH[employer]ON CARDIOVATIONS [id number] / / Screw Inner Mntr [id number] - [id number] Implanted:Qt y: 8 on 07/13/2010 at OR [facility] N/A: Spine Cervical JNJ : ETH[employer]ON CARDIOVATIONS [id number] / / Nut Outer Xcon [id number] - [id number] Implanted:Qt y: 2 on 07/13/2010 at OR [facility] N/A: Spine Cervical JNJ : ETH[employer]ON CARDIOVATIONS [id number] / / Screw Inner Xcon [id number] - [id number] Implanted:Qt y: 2 on 07/13/2010 at OR [facility] N/A: Spine Cervical JNJ : ETH[employer]ON CARDIOVATIONS [id number] / / Plate 35mm Xcon [id number] - [id number] Implanted:Qt y: 1 on 07/13/2010 at OR [facility] N/A: Spine Cervical JNJ : ETHICON CARDIOVATIONS [id number] / / documented as of this encounter Visit Diagnoses Diagnosis History of DVT (deep vein thrombosis)- Primary Personal history of venous thrombosis and embolism Chronic atrial fibrillation (HCC) Atrial fibrillation Unstable angina (HCC) Intermediate coronary syndrome CAD (coronary artery disease) Coronary atherosclerosis of unspecified type of vessel, [place] or graft documented in this encounter Advance [...] the patient have Health Care Power of Bunch Breaker? No Full Code 07/13/2010 12:29 PM 07/17/2010 4:03 PM Thi s order reflects the patients wishes and were consensually agreed upon. Question Answer Comments Discussion of Advance Directives occurred with: Not Discussed Does the patient have a Living Will? No Does the patient have Health Care Power of Bunch Breaker? No Full Code 01/07/2010 6:23 AM 01/07/2010 2:05 PM This or emi reflects the patients wishes and were consensually agreed upon. Question Answer Comments Discussion of Advance Directives occurred with: Patient/Family Does the patient have a Living Will? No Does the patient have Health Care Power of Bunch Breaker? No Full Code 10/15/2009 7:12 AM 10/15/2009 9:26 PM This order reflects the patients wishes and were consensually agreed upon. Care Teams Throat Cutter Relationship Specialty Start Date End Date Alfa Jaramillo MD [address] [place] [address] PCP - General 05/06/00 documented as of this encounter
--- OUTSIDE RECORDS SUMMARY | 2023-11-15 18:37 | External Medical Summary ---
Author Name Unknown Address Unknown Organization [id number]:[facility] [place] [address] [place] [address] Laboratory Report Ordering Provider Test Date Status ROWENA BRODERICK 10/19/2023 10:23:06 Final Observation Date Value Abnormality Reference (Units ) Status TSH 10/19/2023 10:23:06 3.18 0.27-4.20 (uIU/mL) Final Performing Location [facility] [place] [address] [place] [address]
--- OUTSIDE RECORDS SUMMARY | 2023-11-15 18:37 | External Medical Summary ---
Author Name Unknown Address Unknown Organization [id number]:LAB[facility]ATORY [facility] - [address] [place] [address] Laboratory Report Ordering Provider Test Date Status ROWENA BRODERICK 10/19/2023 10:23:06 Final Observation Date Value Abnormality Reference (Units ) Status BUN 10/19/2023 10:23:06 21 Above high normal 6-20 (mg/dL) Final Creatinine 10/19/2023 10:23:06 0.8 0.5-1.0 (mg/dL) Final Glomerular filtration rate/1.73 sq M.predicted [Volume Rate/Area] in Serum, Plasma or Blood by Creatinine-based formula (CKD-EPI) 10/19/2023 10:23:06 76 >=60 (mL/min) Final eGFR is calculated based on the CKD-EPI 2020 equation SODIUM 10/19/2023 10:23:06 138 135-146 (m mol/L) Final Potassium 10/19/2023 10:23:06 4.5 3.5-5.1 (m mol/L) Final Cl 10/19/2023 10:23:06 100 98-107 (mm ol/L) Final CO2 10/19/2023 10:23:06 27 22-32 (mmo l/L) Final Anion gap 10/19/2023 10:23:06 11 7-15 (mmol /L) Final Glucose 10/19/2023 10:23:06 254 Above high normal 70 -120 (mg/dL) Final Albumin 10/19/2023 10:23:06 3.7 Below low normal 3.8 -5.0 (g/dL) Final AST (Aspartate aminotransferase) 10/19/2023 10:23:06 48 Above high normal 10-35 (U/L) Final Alk Phos 10/19/2023 10:23:06 112 35-130 (U/ L) Final Bilirubin, Total 10/19/2023 10:23:06 0.5 <=1 .2 (mg/dL) Final Calcium 10/19/2023 10:23:06 9.5 8.4-10.2 ( mg/dL) Final Protein 10/19/2023 10:23:06 7.2 6.0-8.3 (g /dL) Final ALT (Alanine aminotransferase) 10/19/2023 10:23:06 27 10-35 (U/L) Josh hudson Performing Location LABORATORY [facility] - [address] [place] [address]
--- OUTSIDE RECORDS SUMMARY | 2023-11-15 18:37 | External Medical Summary ---
Author Name Unknown Address Unknown Organization [id number]:LABORATORY [facility] - [address] [place] [address] Laboratory Report Ordering Provider Test Date Status ROWENA BRODERICK 10/19/2023 10:23:06 Final Observation Date Value Abnormality Reference (Units ) Status WBC, Total 10/19/2023 10:23:06 10.01 4.00-10.8 0 (K/uL) Final RBC 10/19/2023 10:23:06 4.29 3.85-5.15 (M/uL) Final Hemoglobin 10/19/2023 10:23:06 12.8 12.0-15.3 (g/dL) Final HCT 10/19/2023 10:23:06 39.5 36.0-45.2 (%) Final MCV 10/19/2023 10:23:06 92.1 81.5-97.5 (fL) Final MCH 10/19/2023 10:23:06 29.8 27.0-34.0 (pg) Final MCHC 10/19/2023 10:23:06 32.4 32.0-36.0 (g/dL) Final RDW 10/19/2023 10:23:06 16.7 11.5-15.5 (%) Final Platelets 10/19/2023 10:23:06 177 140-400 (K /uL) Final MPV 10/19/2023 10:23:06 11.9 6.6-11.1 ( fL) Final Performing Location LAB[facility]ATORY [facility] - [address] [place] [address]
--- OUTSIDE RECORDS SUMMARY | 2023-11-15 18:37 | External Medical Summary ---
Author Name Unknown Address Unknown Organization [id number]:[facility] [place] [address] [place] [address] Laboratory Report Ordering Provider Test Date Status ROWENA BRODERICK 10/19/2023 10:23:06 Final Recommended trough therapeut ic ranges:
0.5 to 0.8 for heart failure
0.5 to 1.1 for atrial fibrillation Observation Date Value Abnormality Reference (Units ) Status Digoxin 10/19/2023 10:23:06 1.6 Above high normal 0. 5-1.1 (ng/mL) Final Performing Location [facility] [place] [address] [place] [address]
--- OUTSIDE RECORDS SUMMARY | 2023-11-15 18:37 | External Medical Summary | Summary of Care ---
Author Name Unknown Organization [facility] Address [address] [facility] [place] [address] Phone [phone] Care Team Providers Care Master [employer] Name Role Phone Alfa Jaramillo MD Primary Care Provider [phone]- [phone] Reason for Visit * Reason Comments Outpatient Testing Encounter Details Date Type Department Care Team (Late st Contact Info) Description 10/19/2023 10:40 AM EDT Laboratory Laboratory, [facility] [address] [facility] [place] [address] 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 Change every 10 days. Supplied by [employer]: [phone] Active Dexcom G6 Transmitter Use as directed. Change every 90 days. Supplied by [employer]: [phone] 0 Active Dexcom G6 Drywall Stripper Device Use as directed. Supplied by [employer]: [phone] Active Fluticasone Propionate 50 MCG/ACT Nasal [...] Warfarin Sodium 5 MG Oral Tablet (Coumadin)Indication s:stem sizer current use of anticoagulant therapy,Deep vein thrombosis (DVT) ([facility]) TAKE ONE TABLET TO ONE AND [...] ([facility]) Use as directed. 0 10/04/2023 Active Accu-Chek Softclix LancetsIndications:T ype 2 diabetes mellitus with foot ulcer, with long-term current use of insulin ([facility]),DM (diabetes mellitus) type II, controlled, with peripheral vascular disorder ([facility]) Use to test blood glucose 4 times daily. DX: E11.9 400 Each 3 10/04/2023 Active documented as of this encounter (statuses as of 10/19/2023) Active Problems Problem Noted Date Diagnosed Date Type 2 diabetes mellitus with foot ulcer (CODE) 09/19/2022 Gastro-esophageal reflux disease without esophag itis 03/27/2022 Major depressive disorder, recurrent, unspecifie d 02/10/2021 DM (diabetes mellitus) type II, controlled, with peripheral vascular disorder 12/08/2020 Coronary artery disease of n ative artery of wilton heart with stable angina pectoris 12/08/2020 History [...] Per Lipid Taxonomy. Cervical spinal stenosis 08/21/2008 [facility] current use of anticoagulant therapy 0 05/03/2005 [...] Care Team (Latest Contact Info) Description 10/19/2023 10:50 AM EDT Imaging Radiology [address] [place] [address] Arrived 10/24/2023 2:30 PM EDT [facility] [address] [place] [address] [facility] [address] [place] [address] 10/24/2023 2:40 PM EDT Office Visit Corky Galvez [address] [place] [address] [facility] [address] [place] [address] 10/30/2023 8:45 AM EDT Office Visit Podiatry [facility], [address] [place] [id number] Kenny Archibald, DPM [address] [place] [address] 11/12/2023 9:00 AM EDT Hospital Encounter CRS Waiting [facility], Cardiac Recovery Suite Waiting Unit, [address] [place] [address] Huey Barrera MD [address] [place] [address] 11/12/2023 9:00 AM EDT - 11/12/2023 10:00 AM EDT Surgery CRS Waiting [facility], Cardiac Recovery Suite Waiting Unit, [address] [place] [address] Huey Barrera MD [address] [place] [address] CORONARY ANGIOGRAPHY W/LEFT HEART CATH 11/12/2023 9:00 AM EDT Office Visit Cardiology [facility] [address] [place] [address] [facility] Cardiac [facility] [address] [place] [address] 01/03/2024 1:00 PM EDT Office Visit [facility] [address] [place] [phone] Natalia Heller PA-C [address] [place] [address] Pending Results Name Type Priority Associated Diagnoses Date /Time CBC Lab Routine 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) GARCIA (dyspnea on exertion) Unstable angina (HCC) Permanent atrial fibrillation (HCC) Mild aortic stenosis HTN, goal below 130/80 Dyslipidemia, goal LDL below 70 10/19/2023 10:23 AM EDT COMPREHENSIVE METABOLIC PANEL Lab Routine 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) GARCIA (dyspnea on exertion) Unstable angina (HCC) Permanent atrial fibrillation (HCC) Mild aortic stenosis HTN, goal below 130/80 Dyslipidemia, goal LDL below 70 10/19/2023 10:23 AM EDT TSH WITH FREE T4 IF INDICATED Lab Routine 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) GARCIA (dyspnea on exertion) Unstable angina (HCC) Permanent atrial fibrillation (HCC) Mild aortic stenosis HTN, goal below 130/80 Dyslipidemia, goal LDL below 70 10/19/2023 10:23 AM EDT MAGNESIUM Lab Routine 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) GARCIA (dyspnea on exertion) Unstable angina (HCC) Permanent atrial fibrillation (HCC) Mild aortic stenosis HTN, goal below 130/80 Dyslipidemia, goal LDL below 70 10/19/2023 10:23 AM EDT DIGOXIN LEVEL Lab Routine 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) GARCIA (dyspnea on exertion) Unstable angina (HCC) Permanent atrial fibrillation (HCC) Mild aortic stenosis HTN, goal below 130/80 Dyslipidemia, goal LDL below 70 10/19/2023 10:23 AM EDT LIPID PANEL WITH DIRECT LDL IF TG IS HIGH Lab Routine 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) GARCIA (dyspnea on exertion) Unstable angina (HCC) Permanent atrial fibrillation (HCC) Mild aortic stenosis HTN, goal below 130/80 Dyslipidemia, goal LDL below 70 10/19/2023 10:23 AM EDT APTT Lab Routine 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) GARCIA (dyspnea on exertion) Unstable angina (HCC) Permanent atrial fibrillation (HCC) Mild aortic stenosis HTN, goal below 130/80 Dyslipidemia, goal LDL below 70 10/19/2023 10:23 AM EDT Scheduled Procedures Name Priority Associated Diagnoses Date/Ti [...] 06/07/2024 06/07/2023, 08/2021, 06/06/2022, Additional history exists DIG LEVEL FOR MEDICATION MONITORING YEARLY 07/05/2024 07/05/2023, 09/19/2022, 03/20/2022, Additional history exists GFR 08/30/2024 08/30/2023, 06/08, 09/19/2022, Additional history exists DTaP,Tdap,and Td Vaccines (2 - Td or Tdap) 09/15/2024 09/15/2014, 07/15/2008, 02/09/1998 O2 ASSESSMENT COMPLETED IN PAST YEAR FOR COPD 09/18/2024 09/18/2023 DXA Scan 02/19/2025 02/19/2023, 02/03, 05/12/2020, Additional history exists Colonoscopy 09/18/2033 09/18/2023, 09/06, 11/16/2020, Additional history exists Colorectal Cancer Screening 09/18/2033 Pneumococcal Vaccine: 65+ Years Completed 01/20/2016, 01/15/2015, 09/18/2006, Additional history exists VITAMIN D LEVEL ONCE IN A LIFETIME-USE SMARTSET# [id number] Completed 06/18/2020, 07/25/2019, 05/20/2015, Additional history exists LUNG CANCER SCREENING - USE SMARTSET [id number] Completed 12/22/2022, 12/09/2021, 12/24/2020, Additional history exists [...] this encounter Medical Devices Implanted Type Area Sweatband Shaper Device Identifier Shelf Expiration Date Model / Serial / Lot Graft Cervical 6x8 [id number] - [id number] Implanted:Qt y: 2 on 08/21/2008 at [facility] Tissue - Human Spine Cervical [employer] [id number] / / Screw Spine 14mm [id number] - [id number] Implanted:Qt y: 2 on 08/21/2008 at OR [facility] N/A: Spine Cervical [employer] DEPUY [id number] / / Depuy [place] 14 Mm Sd Con Scr Implanted:Qt y: 2 on 08/21/2008 at OR [facility] N/A: Spine Cervical [employer] [id number] / / Description:Depuy skyline 14 mm SD con SCR 34 Mm Plate Implanted:Qt y: 1 on 08/21/2008 at OR [facility] N/A: Spine Cervical [id number] / / Description:34 mm Depuy plat e 14 Mm Variable Rescue Implanted:Qt y: 2 on 08/21/2008 at OR [facility] N/A: Spine Cervical [id number] / / Description:14 mm variable r escue Screw 3.5x14 Mntr Fa [id number] - [id number] Implanted:Qt y: 10 on 07/13/2010 at OR [facility] N/A: Spine Cervical JNJ : [employer] [id number] / / Devaughn 3.7x134ic [id number] - [id number] Implanted:Qt y: 1 on 07/13/2010 at OR [facility] N/A: Spine Cervical JNJ : [employer] [id number] / / Screw Inner Mntr [id number] - [id number] Implanted:Qt y: 8 on 07/13/2010 at OR [facility] N/A: Spine Cervical JNJ : [employer] [id number] / / Nut Outer Xcon [id number] - [id number] Implanted:Qt y: 2 on 07/13/2010 at [place] [facility] N/A: Spine Cervical JNJ : [employer] [id number] / / Screw Inner Xcon [id number] - [id number] Implanted:Qt y: 2 on 07/13/2010 at OR [facility] N/A: Spine Cervical JNJ : [employer] [id number] / / Plate 35mm Xcon [id number] - [id number] Implanted:Qt y: 1 on 07/13/2010 at [facility] N/A: Spine Cervical JNJ : [employer] [id number] / / documented as of this encounter Visit Diagnoses Diagnosis 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) GARCIA (dyspnea on exertion) Other dyspnea and respiratory abnormality Unstable angina (HCC) Intermediate coronary syndrome Permanent atrial fibrillation (HCC) Atrial fibrillation Mild aortic stenosis Aortic valve disorders HTN, goal below 130/80 Unspecified essential hypertension Dyslipidemia, goal LDL below 70 Other and unspecified hyperlipidemia Unstable angina (HCC) Intermediate coronary syndrome CAD (coronary artery disease) Coronary atherosclerosis of unspecified type of vessel, wilton or graft documented in this encounter Advance [...] the patient have Health Care Power of Chemical Recovery Operator? No Full Code 07/13/2010 12:29 PM 07/17/2010 4:03 PM Thi s order reflects the patients wishes and were consensually agreed upon. Question Answer Comments Discussion of Advance Directives occurred with: Not Discussed Does the patient have a Living Will? No Does the patient have Health Care Power of Chemical Recovery Operator? No Full Code 01/07/2010 6:23 AM 01/07/2010 2:05 PM This or mei reflects the patients wishes and were consensually agreed upon. Question Answer Comments Discussion of Advance Directives occurred with: Patient/Family Does the patient have a Living Will? No Does the patient have Health Care Power of Chemical Recovery Operator? No Full Code 10/15/2009 7:12 AM 10/15/2009 9:26 PM This order reflects the patients wishes and were consensually agreed upon. Care Teams Master [employer] Relationship Specialty Start Date End Date Alfa Jaramillo MD [address] [place] [address] PCP - General 05/06/00 documented as of this encounter
--- OUTSIDE RECORDS SUMMARY | 2023-11-15 18:37 | External Medical Summary ---
Author Name Unknown Address Unknown Organization K01:[facility] [address] [place] [address] Laboratory Report Ordering Provider Test Date Status ROWENA BRODERICK 10/19/2023 10:23:06 Final Observation Date Value Abnormality Reference (Units ) Status Magnesium 10/19/2023 10:23:06 2.0 1.5-2.6 (m g/dL) Final Performing Location [facility] - [address] [place] [address]
--- OUTSIDE RECORDS SUMMARY | 2023-11-15 18:37 | External Medical Summary ---
Author Name Unknown Address Unknown Organization [id number][facility] [place] [address] [facility] [place] [address] Laboratory Report Ordering Provider Test Date Status ROWENA BRODERICK 10/19/2023 10:23:06 Final Observation Date Value Abnormality Reference (Units ) Status Triglyceride 10/19/2023 10:23:06 140 <=174 ( mg/dL) Final Triglyceride Reference Range s (mg/dL):
<150 Acceptable
150-174 Borderline high
175-499 High
>=500 Very high Cholesterol 10/19/2023 10:23:06 161 <200 (mg /dL) Final Total Cholesterol Reference Ranges (mg/dL):
<200 Desirable
200-239 Borderline high
>=240 High HDL 10/19/2023 10:23:06 39 Below low normal >49 (mg/dL) Final HDL Cholesterol Reference Ra nges (mg/dL):
>=60 High (Desirable)
<50 Low (Undesirable) For Females
<40 Low (Undesirable) For Males NON-HDL CHOLESTEROL 10/19/2023 10:23:06 122 <=159 (mg/dL) Final Non-HDL Cholesterol Referenc e Range (mg/dL):
<100 Target level for high risk ASCVD patient
<130 Optimal for general population
130-159 Near optimal for general population
160-189 Borderline High
190-219 High
>=220 Very High LDL, (calculated) 10/19/2023 10:23:06 94 <= 129 (mg/dL) Final LDL Cholesterol Reference Ra nges (mg/dL):
<70 Target level for high risk ASCVD patient
<100 Optimal for general population
100-129 Near optimal for general population
130-159 Borderline high
160-189 High
>=190 Very high Performing Location [facility] [place] [address] [facility] [address]
--- OUTSIDE RECORDS SUMMARY | 2023-11-15 18:37 | External Medical Summary | Summary of Care ---
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 T wo days ago was out walking and threw up after while eating lunch. [place] shaky, SOB, chest pain and took one nitro which helped symptoms. Encounter Details Date Type Department Care Team (Late Contact Info) Description 10/19/2023 9:30 AM EDT Office Visit Cardiology, [facility] [address] [place] [id number] Apple Durbin CRNP [address] [place] [phone] Unstable angina (HCC)*; 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); GARCIA [...] on Sunday. 15 mL 1 10/20/2022 Active DexKoko G6 Sensor Use as directed. Change every 10 days. Supplied by [employer]: [phone] 0 Active DexKoko G6 Transmitter Use as directed. Change every 90 days. Supplied by [employer]: [phone] Active [employer] G6 Operators Teacher Device Use as directed. 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,Deep vein thrombosis (DVT) (HCC) TAKE ONE TABLET TO ONE AND ONE-HALF TABLET BY MOUTH EVERY DAY DIRECTED BY [facility] 135 Tablet 3 09/13/2023 5 Active Insulin Aspart 100 UNIT/ML Injection Solution (NovoLOG)Indications :Type 2 diabetes mellitus with foot ulcer, with long-term current use of insulin ([facility]),DM (diabetes mellitus) type II, controlled, with peripheral vascular disorder ([facility]) FOR USE WITH AN INSULIN PUMP, UP TO 310 UNITS DAILY- dose increase 300 mL 11 10/01/2023 Active Accu-Chek Guide In Vitro Strip (Glucose Blood)Indications:Ty pe 2 diabetes mellitus with foot ulcer, with long-term current use of insulin ([facility]),DM (diabetes mellitus) type II, controlled, with peripheral vascular disorder ([facility]) Use to test blood glucose 4 times daily. E11.9 400 Strip 3 10/04/2023 Active Accu-Chek Guide Me w/Device KitIndications:Type 2 diabetes mellitus with foot ulcer, with long-term current use of insulin ([facility]),DM (diabetes mellitus) type II, controlled, with peripheral vascular disorder ([facility]) Use as directed. 0 10/04/2023 [...] artery disease of n ative artery of iqugmiut heart with stable angina pectoris 12/08/2020 History [...] Per Lipid Taxonomy. Cervical spinal stenosis 08/21/2008 assisted current use of anticoagulant therapy 0 05/03/2005 [...] strenuous activities that could provoke your symptoms. [facility] Cardiology number: (ask to be connected to [facility] cardiology) or send me a [employer] message with any concerns. documented in this encounter Progress Notes * Apple Durbin CRNP - 10/19/2023 9:30 AM EDT Cardiology Outpatient Visit 10/19/2023 Primary Crust Sorter: Dr. Kyleigh Past medical history: Permanent atrial fibrillation--on metoprolol and digoxin. Intolerance to higher doses of beta-adis due to COPD [id number] score of 5 (age 1, female, HTN, [...] directed. Change every 10 days. Supplied by [employer]: [phone] Dexcom G6 Transmitter Use as directed. Change every 90 days. Supplied by [employer]: [phone] Dexcom G6 Operators Teacher Device Use as directed. Supplied by [employer]: [phone] No current facility-administered medications for this visit. [...] LDL below 100 07/15/2009 Per Lipid Taxonomy. 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 Major depressive disorder, [...] performed by Buffy Castro MD at OR [facility] AMPUTATION OF TOE Right 05/02/2019 AMPUTATION TOE METATARSOPHALANGEAL JOINT performed by Kenny Archibald DPM at OR [facility] ARTHROPLASTY KNEE TOTAL Right 05/2016 Dr Reynoso BX LYMPH NODE DEEP AXIL Left 04/07/2015 BIOPSY LYMPH NODE DEEP AXILLARY OPEN performed by Buffy Castro MD at OR [facility] CARPAL TUNNEL SURGERY 10/15/2009 NEUROPLASTY MEDIAN NERVE [...] performed by Anselmo Sung MD at ENDOSCOPY [facility] COLONOSCOPY, DIAGNOSTIC (RECTUM) 03/21/2018 adenomatous polyp, diverticulosis, repeat 2 yrs/COLONOSCOPY FLEXIBLE PROXIMAL DIAGNOSTIC performed by Anselmo Sung MD at ENDOSCOPY [facility] COLONOSCOPY, DIAGNOSTIC (RECTUM) 01/15/2014 COLONOSCOPY FLEXIBLE PROXIMAL DIAGNOSTIC performed by Anselmo Sung MD at ENDOSCOPY [facility] COLONOSCOPY, DIAGNOSTIC (RECTUM) 11/16/2020 Hemorrhoids, diverticulosis sigmoid colon, multi polyps / biopsy benign adenomatous polyps / 1 yearrecall / COLONOSCOPY FLEXIBLE PROXIMAL DIAGNOSTIC performed by Anselmo Sung MD at ENDOSCOPY [facility] COLONOSCOPY, DIAGNOSTIC (RECTUM) 09/18/2023 multiple small and large mouthed diverticula/biopsies show adenomatous polyps/recall 10 years/COLONOSCOPY FLEXIBLE PROXIMAL DIAGNOSTIC performed by Anselmo Sung MD at ENDOSCOPY [facility] COLONOSCOPY/REMOVE LESION 03/16/2009 repeat 6 months DILATION AND CURETTAGE (D&C) 1996 D&C ENDO DECOMPRESS SPINAL CORD W/LAMINOTOMY, CERVICAL 07/13/2010 LAMINECTOMY DECOMPRESSION SPINAL CORD POSTERIOR CERVICAL performed by CHELSI DICKERSON at OR [facility] IDENTIFY SENTINEL NODE, RADIOACTIVE TRACER Left 04/07/2015 INJECTION PROCEDURE FOR IDENTIFICATION SENTINEL NODE performed by Buffy Castro MD at OR [facility] KNEE ARTHROSCOPY, DIAGNOSTIC 12/2012 Left knee - [...] performed by Buffy Castro MD at OR [facility] NECK SPINE FUSION (CERV, BELOW C2) 08/21/2008 ARTHRODESIS SPINE ANTERIOR CERVICAL performed by CHELSI DICKERSON at [facility] NECK SPINE FUSION (CERV, BELOW C2) 07/13/2010 ARTHRODESIS SPINE POSTERIOR CERVICAL performed by CHELSI DICKERSON at OR [facility] RADIATION THERAPY MANAGEMENT Left 07/10/2015 REMOVE NECK SPINE LAMINA, 1-2 SEGS 07/13/2010 LAMINECTOMY POSTERIOR CERVICAL ONE OR TWO VERTEBRAL SEGMENTS performed by CHELSI DICKERSON at [facility] SENTINEL LYMPH NODE BIOPSY PERFORMED Left 04/07/2015 SPINE SEG FIX, POST, 3-6 SEG, INSERT 07/13/2010 POSTERIOR SPINE SEGMENTAL INSTRUMENTATION 3 TO 6 PSF performed by CHELSI DICKERSON at OR [facility] Social History Tobacco Use Smoking [...] higher doses of beta-adis due to COPD -[id number] score of 5 (age 1, female, HTN, CAD) Continue metoprolol and digoxin as ordered. Dig level ordered for assessment. Continue Coumadin, INR goal between 2-3. 2. 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) -Presumed [...] Scheduled for 11/12/2023. 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 [...] prior to cath Hold coumadin x5 days-- no bridge Refrain from NSAID use. The use of [...] performance of separately billed services. AUDELIA Ware [facility], Department of Cardiology This chart was completed in part utilizing [employer] Speech Voice Recognition Software. Grammatical errors, random [...] QRS Duration: 88 QT/QTc: 372/452 ms P-R-T [place]: 0 : 21 : -20 degrees documented in this encounter Nursing Notes * Narciso Herbert LPN - 10/19/2023 9:21 AM EDT Patient identified by full name and date of Chief Complaint Patient presents with Follow Up 5 month follow up. Two days ago was out walking and threw up after while eating lunch. [place] shaky, SOB, chest pain and took one nitro which helped symptoms. Examination Room: 4 Name: Graciela Mobley Date of : (1950). Reason for Visit: 5 month follow up Interim Hospitalization(s): Denies Problems/Concerns: See chief complaint Chest Pain/SOB: See chief complaint [facility] Discussed: Yes [facility] is a way you can talk to [...] Care Team (Latest Contact Info) Description 10/19/2023 10:40 AM EDT Laboratory Laboratory, [facility] [address] [facility] [place] [id number] [facility] [address] [facility] [place] [address] 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); GARCIA (dyspnea on exertion); Unstable angina (HCC); Permanent atrial fibrillation (HCC); Mild aortic stenosis; HTN, goal below 130/80; Dyslipidemia, goal LDL below 70 10/19/2023 10:50 AM EDT Imaging Radiology [address] [place] [address] Arrived 10/24/2023 2:30 PM EDT Anticoagulation Pharmacy, [place] [address] [place] [address] [facility] [place] [address] 10/24/2023 2:40 PM EDT Office Visit Pharmacy, [place] [address] [place] [address] [facility] [address] [place] [address] 10/30/2023 8:45 AM EDT Office Visit Podiatry [address] [place] [phone] Kenny Archibald, [place] [address] [place] [address] 11/12/2023 9:00 AM EDT Hospital Encounter CRS Waiting [facility], Cardiac Recovery Suite Waiting Unit, [address] [place] [facility] [place] [facility] [place] [address] [facility]uey Barrera [facility] [address] [facility] [address] 11/12/2023 9:00 AM EDT - 11/12/2023 10:00 AM EDT Surgery CRS Waiting [facility], Cardiac Recovery Suite Waiting Unit, [address] [place] [address] Huey Barrera MD [address] [place] [address] CORONARY ANGIOGRAPHY W/LEFT HEART CATH 11/12/2023 9:00 AM EDT Office Visit Cardiology [facility], [place] [address] [place] [address] [facility] Cardiac Recovery [facility] [address] [place] [address] 01/03/2024 1:00 PM EDT Office Visit [facility] [address] [place] [phone] Natalia Heller PA-C [address] [place] [address] Pending Results Name Type Priority Associated Diagnoses Date /Time CBC Lab Routine 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) GARCIA (dyspnea on exertion) Unstable angina (HCC) Permanent atrial fibrillation (HCC) Mild aortic stenosis HTN, goal below 130/80 Dyslipidemia, goal LDL below 70 10/19/2023 10:23 AM EDT COMPREHENSIVE METABOLIC PANEL Lab Routine 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) GARCIA (dyspnea on exertion) Unstable angina (HCC) Permanent atrial fibrillation (HCC) Mild aortic stenosis HTN, goal below 130/80 Dyslipidemia, goal LDL below 70 10/19/2023 10:23 AM EDT TSH WITH FREE T4 IF INDICATED Lab Routine 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) GARCIA (dyspnea on exertion) Unstable angina (HCC) Permanent atrial fibrillation (HCC) Mild aortic stenosis HTN, goal below 130/80 Dyslipidemia, goal LDL below 70 10/19/2023 10:23 AM EDT MAGNESIUM Lab Routine 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) GARCIA (dyspnea on exertion) Unstable angina (HCC) Permanent atrial fibrillation (HCC) Mild aortic stenosis HTN, goal below 130/80 Dyslipidemia, goal LDL below 70 10/19/2023 10:23 AM EDT DIGOXIN LEVEL Lab Routine 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) GARCIA (dyspnea on exertion) Unstable angina (HCC) Permanent atrial fibrillation (HCC) Mild aortic stenosis HTN, goal below 130/80 Dyslipidemia, goal LDL below 70 10/19/2023 10:23 AM EDT LIPID PANEL WITH DIRECT LDL IF TG IS HIGH Lab Routine 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) GARCIA (dyspnea on exertion) Unstable angina (HCC) Permanent atrial fibrillation (HCC) Mild aortic stenosis HTN, goal below 130/80 Dyslipidemia, goal LDL below 70 10/19/2023 10:23 AM EDT APTT Lab Routine 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) GARCIA (dyspnea on exertion) Unstable angina (HCC) Permanent atrial fibrillation (HCC) Mild aortic stenosis HTN, goal below 130/80 Dyslipidemia, goal LDL below 70 10/19/2023 10:23 AM EDT XR CHEST 2 VIEWS Medical Imaging Routine 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) GARCIA (dyspnea on exertion) Unstable angina (HCC) Permanent atrial fibrillation (HCC) Mild aortic stenosis HTN, goal below 130/80 Dyslipidemia, goal LDL below 70 10/19/2023 10:36 AM EDT Scheduled Orders Name Type Priority Associated Diagnoses Orde r Schedule CBC Lab Routine 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) GARCIA (dyspnea on exertion) Unstable angina (HCC) Permanent atrial fibrillation (HCC) Mild aortic stenosis HTN, goal below 130/80 Dyslipidemia, goal LDL below 70 Expected: 10/19/2023, Expires: 10/18/2024 COMPREHENSIVE METABOLIC PANEL Lab Routine 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) GARCIA (dyspnea on exertion) Unstable angina (HCC) Permanent atrial fibrillation (HCC) Mild aortic stenosis HTN, goal below 130/80 Dyslipidemia, goal LDL below 70 Expected: 10/19/2023, Expires: 10/18/2024 TSH WITH FREE T4 IF INDICATED Lab Routine 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) GARCIA (dyspnea on exertion) Unstable angina (HCC) Permanent atrial fibrillation (HCC) Mild aortic stenosis HTN, goal below 130/80 Dyslipidemia, goal LDL below 70 Expected: 10/19/2023, Expires: 10/18/2024 MAGNESIUM Lab Routine 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) GARCIA (dyspnea on exertion) Unstable angina (HCC) Permanent atrial fibrillation (HCC) Mild aortic stenosis HTN, goal below 130/80 Dyslipidemia, goal LDL below 70 Expected: 10/19/2023, Expires: 10/18/2024 DIGOXIN LEVEL Lab Routine 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) GARCIA (dyspnea on exertion) Unstable angina (HCC) Permanent atrial fibrillation (HCC) Mild aortic stenosis HTN, goal below 130/80 Dyslipidemia, goal LDL below 70 Expected: 10/19/2023, Expires: 10/18/2024 ECHO, COMPLETE (2D), TRANS-THORACIC Echocardiology Routine 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) GARCIA (dyspnea on exertion) Unstable angina (HCC) Permanent atrial fibrillation (HCC) Mild aortic stenosis HTN, goal below 130/80 Dyslipidemia, goal LDL below 70 Expected: 10/19/2023, Expires: 10/18/2024 LIPID PANEL WITH DIRECT LDL IF TG IS HIGH Lab Routine 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) GARCIA (dyspnea on exertion) Unstable angina (HCC) Permanent atrial fibrillation (HCC) Mild aortic stenosis HTN, goal below 130/80 Dyslipidemia, goal LDL below 70 Expected: 10/19/2023, Expires: 10/18/2024 APTT Lab Routine 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) GARCIA (dyspnea on exertion) Unstable angina (HCC) Permanent atrial fibrillation (HCC) Mild aortic stenosis HTN, goal below 130/80 Dyslipidemia, goal LDL below 70 Expected: 10/19/2023, Expires: 10/18/2024 CARDIAC CATH-CARDIOLOGY ONLY Procedures Routine 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) GARCIA [...] 07/20/2021, 10/13/2020, Additional history exists Albumin/Creatinine Ratio 01/03/202401/02/ 023, 09/19/2022, 04/18/2021, Additional history exists HbA1c [...] D LEVEL ONCE IN A LIFETIME-USE SMARTSET# [id number] Completed 06/18/2020, 07/25/2019, 05/20/2015, Additional history exists LUNG CANCER SCREENING - USE SMARTSET [id number] Completed 12/22/2022, 12/09/2021, 12/24/2020, Additional history exists [...] this encounter Medical Devices Implanted Type Area Cash Applications Analyst Device Identifier Shelf Expiration Date Model / Serial / Lot Graft Cervical 6x8 [id number] - [id number] Implanted:Qt y: 2 on 08/21/2008 at OR [facility] Tissue - Human Spine Cervical [employer] [id number] / / Screw Spine 14mm 50-014 - [id number] Implanted:Qt y: 2 on 08/21/2008 at OR [facility] N/A: Spine Cervical [employer] DEPUY 50-014 / / Depuy [place] 14 Mm Sd Con Scr Implanted:Qt y: 2 on 08/21/2008 at OR [facility] N/A: Spine Cervical [employer] DEPU[employer] 60-014 / / Description:Depuy skyline 14 mm SD con SCR 34 Mm Plate Implanted:Qt y: 1 on 08/21/2008 at OR [facility] N/A: Spine Cervical 034 / / Description:34 mm Depuy plat e 14 Mm Variable Rescue Implanted:Qt y: 2 on 08/21/2008 at OR [facility] N/A: Spine Cervical 1868-54-014 / / Description:14 mm variable r escue Screw 3.5x14 Mntr Fa [id number] - [id number] Implanted:Qt y: 10 on 07/13/2010 at OR [facility] N/A: Spine Cervical JNJ : [employer]ATIONS [id number] / / Devaughn [id number] - [id number] Implanted:Qt y: 1 on 07/13/2010 at OR [facility] N/A: Spine Cervical JNJ : [employer] [id number] / / Screw Inner Mntr [id number] - [id number] Implanted:Qt y: 8 on 07/13/2010 at OR [facility] N/A: Spine Cervical JNJ : [employer] [id number] / / Nut Outer Xcon [id number] - [id number] Implanted:Qt y: 2 on 07/13/2010 at OR [facility] N/A: Spine Cervical JNJ : [employer] [id number] / / Screw Inner Xcon [id number] - [id number] Implanted:Qt y: 2 on 07/13/2010 at OR [facility] N/A: Spine Cervical JNJ : [employer]ATIONS [id number] / / Plate 35mm Xcon [id number] - [id number] Implanted:Qt y: 1 on 07/13/2010 at OR [facility] N/A: Spine Cervical JNJ : [employer] [id number] / / documented as of this encounter Procedures Procedure Name Priority Date/Time Associated Diagnosis Comments HI ECG ROUTINE ECG W/LEAST 12 LDS I&R ONLY Routine 10/19/2023 9:31 AM EDT 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) GARCIA (dyspnea on exertion) Unstable angina (HCC) Permanent atrial fibrillation (HCC) Mild aortic stenosis HTN, goal below 130/80 Dyslipidemia, goal LDL below 70 documented in this encounter Results * EKG COMPLETE (TRACING AND INTERP) (10/19/2023 [...] QRS Duration: 88 QT/QTc: 372/452 ms P-R-T [place]: 0 : 21 : -20 degrees Apple WIN EKG [facility] CARDIOLOG[facility] documented in this encounter Visit Diagnoses Diagnosis Unstable angina (HCC)- Primary Intermediate coronary syndrome 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) GARCIA (dyspnea on exertion) Other dyspnea and respiratory abnormality Permanent atrial fibrillation (HCC) Atrial fibrillation Mild aortic stenosis Aortic valve disorders HTN, goal below 130/80 Unspecified essential hypertension Dyslipidemia, goal LDL below 70 Other and unspecified hyperlipidemia 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) GARCIA [...] Coronary atherosclerosis of unspecified type of vessel, iqu[place] or graft documented in this encounter Advance [...] the patient have Health Care Power of Political Science Instructor? No Full Code 07/13/2010 12:29 PM 07/17/2010 4:03 PM Thi s order reflects the patients wishes and were consensually agreed upon. Question Answer Comments Discussion of Advance Directives occurred with: Not Discussed Does the patient have a Living Will? No Does the patient have Health Care Power of Political Science Instructor? No Full Code 01/07/2010 6:23 AM 01/07/2010 2:05 PM This or emi reflects the patients wishes and were consensually agreed upon. Question Answer Comments Discussion of Advance Directives occurred with: Patient/Family Does the patient have a Living Will? No Does the patient have Health Care Power of Political Science Instructor? No Full Code 10/15/2009 7:12 AM 10/15/2009 9:26 PM This order reflects the patients wishes and were consensually agreed upon. Care Teams Radio Performer Relationship Specialty Start Date End Date Alfa Jaramillo MD [address] [place] [address] PCP - General 05/06/00 documented as of this encounter
--- OUTSIDE RECORDS SUMMARY | 2023-11-15 18:37 | External Medical Summary | Summary of Care ---
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 T wo days ago was out walking and threw up after while eating lunch. Viola shaky, SOB, chest pain and took one nitro which helped symptoms. 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 15 mL 1 10/20/2022 Active DexGKN - GloboKasNet G6 Sensor Use as directed. Change every 10 days. Supplied by [employer]: [phone] 0 Active DexGKN - GloboKasNet G6 Transmitter Use as directed. Change every 90 days. Supplied by [employer]: [phone] 0 Active Packet Design G6 Grinder Tender Device Use as directed. 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,Deep vein thrombosis (DVT) (HCC) TAKE ONE TABLET TO ONE AND ONE-HALF TABLET BY MOUTH EVERY DAY DIRECTED BY [facility] 135 Tablet 3 09/13/2023 5 Active Insulin Aspart 100 UNIT/ML Injection Solution (NovoLOG)Indications :Type 2 diabetes mellitus with foot ulcer, with long-term current use of insulin ([facility]),DM (diabetes mellitus) type II, controlled, with peripheral vascular disorder ([facility]) FOR USE WITH AN INSULIN PUMP, UP TO 310 UNITS DAILY- dose increase 300 mL 11 10/01/2023 Active Accu-Chek Guide In Vitro Strip (Glucose Blood)Indications:Ty pe 2 diabetes mellitus with foot ulcer, with long-term current use of insulin ([facility]),DM (diabetes mellitus) type II, controlled, with peripheral vascular disorder ([facility]) Use to test blood glucose 4 times daily. E11.9 400 Strip 3 10/04/2023 Active Accu-Chek Guide Me w/Device KitIndications:Type 2 diabetes mellitus with foot ulcer, with long-term current use of insulin ([facility]),DM (diabetes mellitus) type II, controlled, with peripheral vascular disorder ([facility]) Use as directed. 0 10/04/2023 Active Accu-Chek [...] artery disease of n ative artery of bad river band heart with stable angina pectoris 12/08/2020 History [...] Per Lipid Taxonomy. Cervical spinal stenosis 08/21/2008 prison current use of anticoagulant therapy 0 05/03/2005 [...] strenuous activities that could provoke your symptoms. [facility] Cardiology number: (ask to be connected to [facility] cardiology) or send me a [employer] message with any concerns. documented in this encounter Progress Notes * Apple Durbin CRNP - 10/19/2023 9:30 AM EDT Cardiology Outpatient Visit 10/19/2023 Primary Print Inspector: Dr. Kyleigh Past medical history: Permanent atrial fibrillation--on metoprolol and digoxin. Intolerance to higher doses of beta-adis due to COPD [id number] score of 5 (age 1, female, HTN, [...] directed. Change every 10 days. Supplied by [employer]: [phone] Dexcom G6 Transmitter Use as directed. Change every 90 days. Supplied by [employer]: [phone] Dexcom G6 Grinder Tender Device Use as directed. Supplied by [employer]: [phone] No current facility-administered medications for this visit. [...] LDL below 100 07/15/2009 Per Lipid Taxonomy. 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 performed by Kenny Archibald DPM at OR [facility] ARTHROPLASTY KNEE TOTAL Right 05/2016 Dr Reynoso BX LYMPH NODE DEEP AXIL Left 04/07/2015 BIOPSY LYMPH NODE DEEP AXILLARY OPEN performed by Buffy Castro MD at OR [facility] CARPAL TUNNEL SURGERY 10/15/2009 NEUROPLASTY MEDIAN NERVE AT CARPAL TUNNEL performed by CHELSI DICKERSON at [place] [facility] CARPAL TUNNEL SURGERY 01/07/2010 NEUROPLASTY MEDIAN NERVE AT CARPAL TUNNEL performed by CHELSI DICKERSON at [place] [facility] COLONOSCOPY 12/09/2009 adenomatous polyps repeat 6 months [...] performed by Anselmo Sung MD at ENDOSCOPY [facility] COLONOSCOPY, DIAGNOSTIC (RECTUM) 03/21/2018 adenomatous polyp, diverticulosis, repeat 2 yrs/COLONOSCOPY FLEXIBLE PROXIMAL DIAGNOSTIC performed by Anselmo Sung MD at ENDOSCOPY [facility] COLONOSCOPY, DIAGNOSTIC (RECTUM) 01/15/2014 COLONOSCOPY FLEXIBLE PROXIMAL DIAGNOSTIC performed by Anselmo Sung MD at ENDOSCOPY [facility] COLONOSCOPY, DIAGNOSTIC (RECTUM) 11/16/2020 Hemorrhoids, diverticulosis sigmoid colon, multi polyps / biopsy benign adenomatous polyps / 1 yearrecall / COLONOSCOPY FLEXIBLE PROXIMAL DIAGNOSTIC performed by Anselmo Sung MD at ENDOSCOPY [facility] COLONOSCOPY, DIAGNOSTIC (RECTUM) 09/18/2023 multiple small and large mouthed diverticula/biopsies show adenomatous polyps/recall 10 years/COLONOSCOPY FLEXIBLE PROXIMAL DIAGNOSTIC performed by Anselmo Sung MD at ENDOSCOPY [facility] COLONOSCOPY/REMOVE LESION 03/16/2009 repeat 6 months DILATION AND CURETTAGE (D&C) 1996 D&C ENDO DECOMPRESS SPINAL CORD W/LAMINOTOMY, CERVICAL 07/13/2010 LAMINECTOMY DECOMPRESSION SPINAL CORD POSTERIOR CERVICAL performed by CHELSI DICKERSON at [place] [facility] IDENTIFY SENTINEL NODE, RADIOACTIVE TRACER Left 04/07/2015 INJECTION PROCEDURE FOR IDENTIFICATION SENTINEL NODE performed by Buffy Castro MD at OR [facility] KNEE ARTHROSCOPY, DIAGNOSTIC 12/2012 Left knee - [...] performed by Buffy Castro MD at OR [facility] NECK SPINE FUSION (CERV, BELOW C2) 08/21/2008 ARTHRODESIS SPINE ANTERIOR CERVICAL performed by CHELSI DICKERSON at [facility] NECK SPINE FUSION (CERV, BELOW C2) 07/13/2010 ARTHRODESIS SPINE POSTERIOR CERVICAL performed by CHELSI DICKERSON at [place] [facility] RADIATION THERAPY MANAGEMENT Left 07/10/2015 REMOVE NECK SPINE LAMINA, 1-2 SEGS 07/13/2010 LAMINECTOMY POSTERIOR CERVICAL ONE OR TWO VERTEBRAL SEGMENTS performed by CHELSI DICKERSON at [facility] SENTINEL LYMPH NODE BIOPSY PERFORMED Left 04/07/2015 SPINE SEG FIX, POST, 3-6 SEG, INSERT 07/13/2010 POSTERIOR SPINE SEGMENTAL INSTRUMENTATION 3 TO 6 PSF performed by CHELSI DICKERSON at [place] [facility] Social History Tobacco Use Smoking status: Former [...] higher doses of beta-adis due to COPD -[id number] score of 5 (age 1, female, HTN, CAD) Continue metoprolol and digoxin as ordered. Dig level ordered for assessment. Continue Coumadin, INR goal between 2-3. 2. 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 Scheduled for 11/12/2023. 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 [...] performance of separately billed services. AUDELIA Ware [facility], Department of Cardiology This chart was completed in part utilizing [employer] Speech Voice Recognition Software. Grammatical errors, random [...] QRS Duration: 88 QT/QTc: 372/452 ms P-R-T [place]: 0 : 21 : -20 degrees documented in this encounter Nursing Notes * Narciso Herbert LPN - 10/19/2023 9:21 AM EDT Patient identified by full name and date of Chief Complaint Patient presents with Follow Up 5 month follow up. Two days ago was out walking and threw up after while eating lunch. Viola shaky, SOB, chest pain and took one [...] Description 10/24/2023 2:30 PM EDT Anticoagulation Pharmacy, [address] [address] [facility] [address] [place] [address] 10/24/2023 2:40 PM EDT Office Visit [place] [address] [place] [address] [facility] [address] [place] [address] 10/30/2023 8:45 AM EDT Office Visit Podiatry [address] [place] [address] Kenny Archibald, [facility] [address] [place] [address] 11/12/2023 9:00 AM EDT Hospital Encounter CRS Waiting [facility], Cardiac Recovery Suite Waiting Unit, [address] [place] [address] Huey Barrera MD [address] [place] [address] 11/12/2023 9:00 AM EDT - 11/12/2023 10:00 AM EDT Surgery CRS Waiting [facility], Cardiac Recovery Suite Waiting Unit, [address] [place] [address] Huey Barrera MD [address] [place] [address] CORONARY ANGIOGRAPHY W/LEFT HEART CATH 11/12/2023 9:00 AM EDT Office Visit Cardiology [facility] [address] [place] [address] [facility] [address] [place] [address] 01/03/2024 1:00 PM EDT Office Visit 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) GARCIA (dyspnea on exertion) Unstable angina (HCC) Permanent atrial fibrillation (HCC) Mild aortic stenosis HTN, goal below 130/80 Dyslipidemia, goal LDL below 70 10/19/2023 10:23 AM EDT MAGNESIUM Lab Routine 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) GARCIA (dyspnea on exertion) Unstable angina (HCC) Permanent atrial fibrillation (HCC) Mild aortic stenosis HTN, goal below 130/80 Dyslipidemia, goal LDL below 70 10/19/2023 10:23 AM EDT DIGOXIN LEVEL Lab Routine 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) GARCIA (dyspnea on exertion) Unstable angina (HCC) Permanent atrial fibrillation (HCC) Mild aortic stenosis HTN, goal below 130/80 Dyslipidemia, goal LDL below 70 10/19/2023 10:23 AM EDT LIPID PANEL WITH DIRECT LDL IF TG IS HIGH Lab Routine 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) GARCIA (dyspnea on exertion) Unstable angina (HCC) Permanent atrial fibrillation (HCC) Mild aortic stenosis HTN, goal below 130/80 Dyslipidemia, goal LDL below 70 10/19/2023 10:23 AM EDT XR CHEST 2 VIEWS Medical Imaging Routine 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) GARCIA (dyspnea on exertion) Unstable angina (HCC) Permanent atrial fibrillation (HCC) Mild aortic stenosis HTN, goal below 130/80 Dyslipidemia, goal LDL below 70 10/19/2023 10:43 AM EDT Scheduled Orders Name Type Priority Associated Diagnoses Orde r Schedule COMPREHENSIVE METABOLIC PANEL Lab Routine 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) GARCIA (dyspnea on exertion) Unstable angina (HCC) Permanent atrial fibrillation (HCC) Mild aortic stenosis HTN, goal below 130/80 Dyslipidemia, goal LDL below 70 Expected: 10/19/2023, Expires: 10/18/2024 TSH WITH FREE T4 IF INDICATED Lab Routine 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) GARCIA (dyspnea on exertion) Unstable angina (HCC) Permanent atrial fibrillation (HCC) Mild aortic stenosis HTN, goal below 130/80 Dyslipidemia, goal LDL below 70 Expected: 10/19/2023, Expires: 10/18/2024 MAGNESIUM Lab Routine 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) GARCIA (dyspnea on exertion) Unstable angina (HCC) Permanent atrial fibrillation (HCC) Mild aortic stenosis HTN, goal below 130/80 Dyslipidemia, goal LDL below 70 Expected: 10/19/2023, Expires: 10/18/2024 DIGOXIN LEVEL Lab Routine 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) GARCIA (dyspnea on exertion) Unstable angina (HCC) Permanent atrial fibrillation (HCC) Mild aortic stenosis HTN, goal below 130/80 Dyslipidemia, goal LDL below 70 Expected: 10/19/2023, Expires: 10/18/2024 ECHO, COMPLETE (2D), TRANS-THORACIC Echocardiology Routine 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) GARCIA (dyspnea on exertion) Unstable angina (HCC) Permanent atrial fibrillation (HCC) Mild aortic stenosis HTN, goal below 130/80 Dyslipidemia, goal LDL below 70 Expected: 10/19/2023, Expires: 10/18/2024 LIPID PANEL WITH DIRECT LDL IF TG IS HIGH Lab Routine 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) GARCIA (dyspnea on exertion) Unstable angina (HCC) Permanent atrial fibrillation (HCC) Mild aortic stenosis HTN, goal below 130/80 Dyslipidemia, goal LDL below 70 Expected: 10/19/2023, Expires: 10/18/2024 CARDIAC CATH-CARDIOLOGY ONLY Procedures Routine 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) GARCIA (dyspnea on exertion) Unstable angina (HCC) Permanent atrial fibrillation (HCC) Mild aortic stenosis HTN, goal below 130/80 Dyslipidemia, goal LDL below 70 Ordered: 10/19/2023 Scheduled Procedures Name Priority Associated Diagnoses Date/Ti nm CORONARY ANGIOGRAPHY W/LEFT HEART CATH Unstable angina [...] D LEVEL ONCE IN A LIFETIME-USE SMARTSET# [id number] Completed 06/18/2020, 07/25/2019, 05/20/2015, Additional history exists LUNG CANCER SCREENING - USE SMARTSET 44872 Completed 12/22/2022, 12/09/2021, 12/24/2020, Additional history exists [...] this encounter Medical Devices Implanted Type Area Single Resource Boss Device Identifier Shelf Expiration Date Model / Serial / Lot Graft Cervical 6x8 [id number] - [id number] Implanted:Qt y: 2 on 08/21/2008 at [place] [facility] Tissue - Human Spine Cervical [employer] [id number] / / Screw Spine 14mm 1868-50-014 - [id number] Implanted:Qt y: 2 on 08/21/2008 at [place] [facility] N/A: Spine Cervical [employer] DEPUY 1868-50-014 / / Depuy Stowell 14 Mm Sd Con Scr Implanted:Qt y: 2 on 08/21/2008 at [place] [facility] N/A: Spine Cervical [employer] DEPUY 1868-60-014 / / Description:Depuy skyline 14 mm SD con SCR 34 Mm Plate Implanted:Qt y: 1 on 08/21/2008 at [place] [facility] N/A: Spine Cervical 02- / / Description:34 mm Depuy plat e 14 Mm Variable Rescue Implanted:Qt y: 2 on 08/21/2008 at [place] [facility] N/A: Spine Cervical 54-014 / / Description:14 mm variable r escue Screw 3.5x14 Mntr Fa [id number] - [id number] Implanted:Qt y: 10 on 07/13/2010 at [place] [facility] N/A: Spine Cervical JNJ : ETH[employer]ON [employer]ATIONS [id number] / / Devaughn 3.4w988bt [id number] - [id number] Implanted:Qt y: 1 on 07/13/2010 at [place] [facility] N/A: Spine Cervical JNJ : [employer] [id number] / / Screw Inner Mntr [id number] - [id number] Implanted:Qt y: 8 on 07/13/2010 at [place] [facility] N/A: Spine Cervical JNJ : [employer] [id number] / / Nut Outer Xcon [id number] - [id number] Implanted:Qt y: 2 on 07/13/2010 at [place] [facility] N/A: Spine Cervical JNJ : [employer]ATIONS [id number] / / Screw Inner Xcon [id number] - [id number] Implanted:Qt y: 2 on 07/13/2010 at [place] [facility] N/A: Spine Cervical JNJ : [employer]ATIONS [id number] / / Plate 35mm Xcon [id number] - [id number] Implanted:Qt y: 1 on 07/13/2010 at [place] [facility] N/A: Spine Cervical JNJ : ETH[employer]ON [employer]ATIONS [id number] / / documented as of this encounter Procedures Procedure Name Priority Date/Time Associated Diagnosis Comments MD ECG ROUTINE ECG W/LEAST 12 LDS W/I&R Routine 10/19/2023 9:31 AM EDT 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 Refer to [employer] Test Catalog for a list of effects. Apple Durbin [employer] RETAILER SALES CONSULTANT LAB BLOOD ORDER JENA [facility] [address] [facility] [place] [address] * CBC (10/19/2023 10:23 AM EDT) WBC 10.01 4.00 - 10.80 K/uL 10/19/2023 11:19 AM EDT LAB[facility]ATORY [facility] 57[facility]10 RBC 4.29 3.85 - 5.15 M/uL 10/19/2023 11:19 AM EDT LAB[facility]ATORY [facility] 57-10 HGB 12.8 12.0 - 15.3 g/dL 10/19/2023 11:19 AM EDT LAB[facility]ORY [facility] 57-10 HCT 39.5 36.0 - 45.2 % 10/19/2023 11:19 AM EDT LAB[facility]ORY [facility] 57-10 MCV 92.1 81.5 - 97.5 fL 10/19/2023 11:19 AM EDT [facility] MCH 29.8 27.0 - 34.0 pg 10/19/2023 11:19 AM EDT [facility] MCHC 32.4 32.0 - 36.0 g/dL 10/19/2023 11:19 AM EDT [facility]ORY [facility] 57-10 RDW 16.7 11.5 - 15.5 % 10/19/2023 11:19 AM EDT [facility] PLT 177 140 - 400 K/uL 10/19/2023 11:19 AM EDT [facility] [place] [facility] MPV 11.9 6.6 - 11.1 fL 10/19/2023 11:19 AM EDT [facility] [place] [facility] Blood Venous blood specimen / Unknown Venipuncture / Unknown 10/19/2023 10:23 AM EDT 10/19/2023 10:23 AM EDT Apple WIN LAB BLOOD ORDER JENA Performing Organization Address [facility] Co de Phone Number LAB[facility]AT[facility] [place] [address] [place] [address] * EKG COMPLETE (TRACING AND INTERP) (10/19/2023 [...] QRS Duration: 88 QT/QTc: 372/452 ms P-R-T [place]: 0 : 21 : -20 degrees Apple WIN EKG Performing Organization Address [facility] Co de Phone Number [facility] documented in this encounter Visit Diagnoses Diagnosis Unstable angina (HCC)- Primary Intermediate coronary syndrome 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 No Full Code 07/13/2010 12:29 PM 07/17/2010 4:03 PM Thi s order reflects the patients wishes and were consensually agreed upon. Question Answer Comments Discussion of Advance Directives occurred with: Not Discussed Does the patient have a Living Will? No Does the patient have Health Care Power of Corporate Scheduler? No Full Code 01/07/2010 6:23 AM 01/07/2010 2:05 PM This or emi reflects the patients wishes and were consensually agreed upon. Question Answer Comments Discussion of Advance Directives occurred with: Patient/Family Does the patient have a Living Will? No Does the patient have Health Care Power of Corporate Scheduler? No Full Code 10/15/2009 7:12 AM 10/15/2009 9:26 PM This order reflects the patients wishes and were consensually agreed upon. Care Teams Geotechnical Engineer Relationship Specialty Start Date End Date Alfa Jaramillo MD [address] [place] [address] PCP - General 05/06/00 documented as of this encounter
--- OUTSIDE RECORDS SUMMARY | 2023-11-15 18:37 | External Medical Summary ---
Author Name Unknown Address Unknown Organization [id number]:LABORATORY [facility] [address] - [address] [place] [address] Laboratory Report Ordering Provider Test Date Status ROWENA BRODERICK 10/19/2023 10:23:06 Final Anticoagulation may affect t esting. Refer to [facility] Test Catalog for a list of effects. Observation Date Value Abnormality Reference (Units ) Status aPTT panel - Platelet poor plasma 10/19/2023 10:23:06 45 Above high normal 21-38 (seconds) Final Performing Location LABORATORY [facility] 57[address] 0 - [address] [place] [address]
--- OUTSIDE RECORDS SUMMARY | 2023-11-15 18:38 | External Medical Summary | Summary of Care ---
Author Name Unknown Organization [facility] Address [address] [facility] [place] [address] Phone [phone] Care Team Providers Care Medical Office Rep Name Role Phone Alfa Jaramillo MD Primary Care Provider [phone]- [phone] Reason for Visit * Reason Comments Dosage Adjustment In Person (Anticoag Cl inic) Diabetes Management Encounter Details Date Type Department Care Team (Late st Contact Info) Description 08/03/2023 10:00 AM EST Office Visit Pharmacy, [address] [address] [facility] [address] [place] [address] Type 2 diabetes mellitus with foot ulcer, with long-term current use of insulin (HCC)*; DM (diabetes mellitus) type II, controlled, with peripheral vascular disorder (HCC) Allergies Active Allergy Reactions Criticality Noted Date Comments Alendronate Sodium 06/24/2012 Burning sensation and difficulty breathing Proton Pump Inhibitors Hives 02/20/2002 nexium documented as of this encounter (statuses as of 10/04/2023) Medications Medication Sig Dispensed Refills Start Date End Date Status INSULIN SYRINGE 30G X 1/2" 0.5 ML MISCIndications:DM type 2, goal A1c below 7 use for injections daily 3 boxes 3 7 Active B-D ULTRAFINE III (5MM) SHORT PEN MISCIndications:DM type 2, goal A1C 7-8 use as directed with sliding scale 500 Pen 3 2 Active INSULIN SYRINGE-NEEDLE U-100 30G X 1/2" 1 ML MISCIndications:DM type 1 causing neurological disease, 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 May substitute proventil or ventolin based on formulary 1 Inhaler 1 8 Active Additional Information Patient not taking.Reported on 02/02/2023 Glucose Blood (CONTOUR NEXT TEST) STRP Use with insulin pump to test blood sugars 4 times a day. Dx. E10.9 300 Strip 4 0 Active Calcium Carbonate Antacid 500 MG chewable tablet Take 1 Tablet by mouth in the morning and 1 Tablet before bedtime. 0 Active Cholecalciferol 25 MCG (1000 UT) Capsule Take 1 Capsule by mouth in the morning. 0 Active Multiple Vitamin (DAILY VALUE MULTIVITAMIN) Tablet Take 1 Tablet by mouth in the morning. 0 Active traZODone HCl 50 MG Oral Tablet (DESYREL)Indicatio ns:Primary insomnia TAKE 1 TABLET BY MOUTH EVERYDAY AT BEDTIME 90 Tab 3 0 Active B-12-SL 1000 MCG Sublingual Tablet Sublingual (Cyanocobalamin)In dications:Malaise and fatigue,B12 deficiency Place under the tongue 1,000 mcg daily . 90 Tablet 3 2 Active Toujeo Max SoloStar 300 UNIT/ML Subcutaneous Solution Pen-injector (Insulin Glargine (2 Unit Dial))Indications: DM (diabetes mellitus) type II, controlled, with peripheral vascular disorder (HCC) Inject 60 Units under the skin in the morning and 60 Units in the evening. Patient uses an insulin pump, but it failed this morning. Will get a new one on Sunday. 15 mL 1 3 Active Dexcom G6 Sensor Use as directed. Change every 10 days. Supplied by [employer]: [phone] 0 Active Dexcom G6 Transmitter Use as directed. Change every 90 days. Supplied by [facility] [employer]: [phone] 0 Active Dexcom G6 Director Ambulatory Device Use as directed. Supplied by [facility] [employer]: [phone] 0 Active Fluticasone Propionate 50 MCG/ACT Nasal Suspension (Flonase)Indicatio ns:Chronic rhinitis Administer 2 Sprays into each nostril in the morning. 16 g 1 3 Active Isosorbide Mononitrate ER 60 MG Oral Tablet Extended Release 24 Hour (Imdur) TAKE ONE TABLET BY MOUTH EVERY MORNING 90 Tablet 3 3 024 Active Nitroglycerin 0.3 MG Sublingual Tablet Sublingual (Nitrostat) PLACE 1 TABLET UNDER THE TONGUE EVERY 5 MINUTES UP TO 3 DOSES NEEDED FOR CHEST PAIN. 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 Obtaining from PAP 0 Active Sertraline HCl 50 MG Oral Tablet (Zoloft) Take 1.5 Tablets by mouth at bedtime. 135 Tablet 3 3 Active Polyethylene Glycol 3350 17 GM/SCOOP Oral Powder (Miralax)Indicatio ns:Other constipation Mix 1/2 bottle into each of 2 gatorade 32 oz bottles. Drink according to your colonoscopy instructions. 255 g 0 3 Active Digoxin 250 MCG Oral Tablet (Lanoxin) Take 1 Tablet by mouth in the morning. 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 Up to 315 units per day. 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 Medication Therapy Disease Management - CSII Follow-up Interval History: Graciela Mobley is an 73 year old year old female returning to the [facility] for a diabetes insulin pump follow-up visit. Blood glucose control since last visit: improved Medication intolerance: no Medication compliance: yes Medication contraindications: no Complicating factors/cost barriers: no Hospitalization or ED Utilization since last visit: no Hypoglycemia requiring assistance since last visit: no Current Diabetes Medications: Diabetic Medications: Metformin 1000mg twice daily Ozempic 2 mg once weekly- Sundays GFR 80 as of 09/19/22 Medtronic 630G Insulin Pump (Serial Number: [id number]) Infusion Set: Quick set Insulin: Novolog Basal Rate: midnight to 6am 7.0 units/hour 6am to 12am: 8.2 units/hour 12am to midnight 8.6 units/hour Bolus: 25 units with breakfast, 45 units with lunch and 40 units with supper (adds difference to preset bolus of 25 for lunch and supper) Bolus wizard: on and using ICR: 5 (using preset) INCREASE: ISF: 12 Blood Glucose Goals: 96-180 Active Insulin Time: 3hours Back up plan in event of pump malfunction: Novolog vial with insulin needles Siddharthaujosyo U300 60 units BID [facility] Blood Glucose Review: Hypoglycemia Assessment: Hemoglobin AIC Results: Lab Results Component Value Date/Time HEMOGLOBIN A1C 7.7 (H) 07/09/1996 11:15 AM HEMOGLOBIN A1C - [facility] 9.6 (H) 07/05/2023 01:32 PM HEMOGLOBIN A1C - [facility] 9.9 (H) 01/02/2023 02:10 PM HEMOGLOBIN A1C - [facility] 10.2 (H) 09/19/2022 08:19 AM HEMOGLOBIN A1C - [facility] 10.6 (H) 06/18/2020 09:03 AM HEMOGLOBIN A1C - [facility] 13.2 (H) 07/25/2019 09:28 AM HEMOGLOBIN A1C - [facility] 13.3 (H) 02/18/2019 02:17 PM 1. Do you know what the symptoms of hypoglycemia are? Yes 2. How often can you tell by your symptoms if your blood sugar is low? Always 3. In a typical week, how many times will your blood sugar go below 70 mg/dL? 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 Z79.01 Cervical spinal stenosis M48.02 DYSLIPIDEMIA, GOAL LDL BELOW 100 E78.5 Senile osteoporosis M81.0 COPD, moderate ([facility]) J44.9 History of DVT (deep vein thrombosis) Z86.718 History of breast cancer Z85.3 B12 deficiency E53.8 Diabetic polyneuropathy associated with type 2 diabetes mellitus ([facility]) E11.42 Diabetic cataract, associated with type 1 diabetes mellitus ([facility]) E10.36 Type 2 diabetes mellitus with skin complication, with long-term current use of insulin ([facility]) E11.628, Z79.4 Chronic atrial fibrillation ([facility]) I48.20 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 ([facility]) Z89.411 History of ankle surgery Z98.890 DM (diabetes mellitus) type II, controlled, with peripheral vascular disorder ([facility]) E11.51 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 ([facility]) I25.118 Major depressive disorder, recurrent, unspecified ([facility]) F33.9 Gastro-esophageal reflux disease without esophagitis K21.9 Type 2 diabetes mellitus with foot ulcer (CODE) ([facility]) E11.621 Review of patient's allergies indicates: Allergen Reactions Alendronate Sodium Burning sensation and difficulty breathing Proton Pump Inhibitors Hives nexium Current Outpatient Medications Medication Sig Dispense Refill INSULIN SYRINGE 30G X 1/2" 0.5 ML MISC use for injections daily 3 boxes 3 B-D ULTRAFINE III (5MM) SHORT PEN MISC use as directed with sliding scale 500 Pen 3 INSULIN SYRINGE-NEEDLE U-100 30G X 1/2" 1 ML MISC Use twice per day with lantus inject, and 3 timesper day for sliding scale 5 Box 3 ONETOUCH ULTRA BLUE STRP Use to check blood sugar up to 4 times daily 3 Box 3 albuterol (PROAIR HFA) 108 (90 BASE) MCG/ACT inhaler Inhale 2 Puffs by mouth 4 times a day. May substitute proventil or ventolin based on formulary (Patient not taking: Reported on 02/02/2023) 1 Inhaler 1 Glucose Blood (CONTOUR NEXT TEST) STRP Use with insulin pump to test blood sugars 4 times a day. Dx. E10.9 300 Strip 4 Calcium Carbonate Antacid 500 MG chewable tablet Take 1 Tablet by mouth in the morning and 1 Tabletbefore bedtime. Cholecalciferol 25 MCG (1000 UT) Capsule Take [...] directed. Change every 10 days. Supplied by [employer]: [phone] Dex[employer]og[employer]q G6 Transmitter Use as directed. Change every 90 days. Supplied by [employer]: [phone] [employer] G6 Director Ambulatory Device Use as directed. Supplied by [employer]: [phone] Fluticasone Propionate 50 MCG/ACT Nasal Suspension (Flonase) [...] MOUTH TWICE A DAY 180 Tablet 3 Warfarin Sodium 5 MG Oral Tablet (Coumadin) TAKE ONE TABLET TO ONE AND ONE-HALF TABLET BY MOUTH EVERY DAY DIRECTED BY [facility] 135 Tablet 3 Insulin Aspart 100 UNIT/ML Injection Solution (NovoLOG) Use with insulin pump. Up to 315 units per day. 290 mL 1 Ozempic (2 MG/DOSE) 8 MG/3ML Subcutaneous Solution [...] mouth in the morning. 90 Tablet 5 No current facility-administered medications for this visit. Objective: The ASCVD Risk score (Petrolia DK, et al., 2019) failed to calculate for the following reasons: The patient has a prior CT or stroke diagnosis Estimated body mass index is 32.35 kg/m as calculated from the following: Height as of 04/04/23: 1.651 m (5' 5"). Weight as of 07/05/23: 88.2 kg (194 lb 6.4 oz). BP Readings from Last 3 Encounters: 07/05/23 122/80 05/18/23 130/74 05/04/23 138/78 No components found for: "[id number]" No results found for: "MICROALBUMIN" Lab Results Component Value Date/Time LDL CHOLESTEROL (CALCULATED) - [facility] 83 01/02/2023 02:10 PM LDL CHOLESTEROL (CALCULATED) - [facility] 81 10/19/2017 09:32 AM LDL CHOLESTEROL (DIRECT MEASURE) - [facility] 93 12/08/2020 09:59 AM LDL CHOLESTEROL (DIRECT MEASURE) - [facility] 102 06/18/2020 09:03 AM LDL CHOLESTEROL (DIRECT MEASURE) - [facility] 47 01/05/2014 04:02 PM Lab Results Component Value Date/Time ALT 43 07/09/1996 11:15 AM ALT - [facility] 24 07/05/2023 01:32 PM ALT - [facility] 35 06/18/2020 09:03 AM Assessment & Plan: Glycemic control is stable but not at goal Patient agreeable to adjust medications as noted below. Basal settings increased as glucose is rising overnight and between meals. ICR/fixed dose continued as we are adjusting the basal settings at this time. ISF continued as glucose we are adjusting the basal settings at this time. Patient to SMBG at least 4 times daily, before each meal and at bedtime. Patient aware to contact clinic if any hypoglycemia before next visit. Reviewed rule of 15s. Reviewed appropriate management of hyperglycemia as noted in pump start documentation. Diabetes Medications: Diabetic Medications: Metformin 1000mg twice daily Ozempic 2 mg once weekly- Sundays GFR 80 as of 09/19/22 Medtronic 630G Insulin Pump (Serial Number: [id number]) Infusion Set: Quick set Insulin: Novolog Basal Rate: midnight to 6am 7.0 units/hour 6am to 12am: 8.2 units/hour 12am to midnight 8.6 units/hour Bolus: 25 units with breakfast, 45 units with lunch and 40 units with supper (adds difference to preset bolus of 25 for lunch and supper) Bolus wizard: on and using ICR: 5 (using preset) INCREASE: ISF: 12 Blood Glucose Goals: 96-180 Active Insulin Time: 3hours Back up plan in event of pump malfunction: Novolog vial with insulin needles Toujeo U300 60 units BID Diabetes Health Maintenance: up-to-date Return to Clinic: 8 week(s) 08/31/2023 Isaac Osei [facility] Clinical Pharmacist Medication Therapy Disease Management 08/03/2023, 10:00 AM documented in this encounter Miscellaneous Notes * Addendum Note - Isaac Osei RPh - 08/03/2023 10:55 AM EST Addended by: ISAAC OSEI on: 08/03/2023 10:55 AM Modules accepted: Orders documented in this encounter Plan of Treatment Upcoming Encounters Date Type Department Care Team (Late st Contact Info) Description 10/04/2023 1:30 PM EST Office Visit Pharmacy, [facility] [address] [facility] [place] [address] Pharmacist1, [facility] [address] [facility] [place] [address] 10/18/2023 9:00 AM EDT Office Visit Cardiology, [facility] [address] [facility] [place] [address] Nesha Denney CRNP [address] [place] [address] 10/24/2023 2:30 PM EDT [facility]tico[facility] Pharm[facility], [place] [address] [address] [facility] [address] [facility] [address] [facility] [address] 10/24/2023 2:40 PM EDT Office Visit Pharmacy, [place] [address] [address] [address] [facility] [address] [facility] [address] 01/03/2024 1:00 PM EDT Office Visit [facility], [address] [address] Natalia Heller PA-C [address] [facility] [place] [address] Scheduled Procedures Name Priority Associated Diagnoses Date/Ti [...] D LEVEL ONCE IN A LIFETIME-USE SMARTSET# 33702 Completed 06/18/2020, 07/25/2019, 05/20/2015, Additional history exists LUNG CANCER SCREENING - USE SMARTSET 42430 Completed 12/22/2022, 12/09/2021, 12/24/2020, Additional history exists [...] this encounter Medical Devices Implanted Type Area Chemist Steroids Device Identifier Shelf Expiration Date Model / Serial / Lot Graft Cervical 6x8 [id number] - [id number] Implanted:Qt y: 2 on 08/21/2008 at [facility] Tissue - Human Spine Cervical [employer] [id number] / / Screw Spine 14mm 1868-50-014 - [id number] Implanted:Qt y: 2 on 08/21/2008 at [facility] N/A: Spine Cervical [employer]PU[employer] 1868-50-014 / / Depuy [place] 14 Mm Sd Con Scr Implanted:Qt y: 2 on 08/21/2008 at [facility] N/A: Spine Cervical [employer] 1868-60-014 / / Description:Depuy [place] 14 mm SD con SCR 34 Mm Plate Implanted:Qt y: 1 on 08/21/2008 at [facility] N/A: Spine Cervical 034 / / Description:34 mm Depuy plat e 14 Mm Variable Rescue Implanted:Qt y: 2 on 08/21/2008 at [facility] N/A: Spine Cervical 014 / / Description:14 mm variable r escue Screw 3.5x14 Mntr Fa [id number] - [id number] Implanted:Qt y: 10 on 07/13/2010 at [facility] N/A: Spine Cervical JNJ : [employer] [id number] / / Devaughn [id number] - [id number] Implanted:Qt y: 1 on 07/13/2010 at [facility] N/A: Spine Cervical JNJ : [employer] [id number] / / Screw Inner Mntr [id number] - [id number] Implanted:Qt y: 8 on 07/13/2010 at [facility] N/A: Spine Cervical JNJ : [employer] [id number] / / Nut Outer Xcon [id number] - [id number] Implanted:Qt y: 2 on 07/13/2010 at [facility] N/A: Spine Cervical JNJ : [employer] [id number] / / Screw Inner Xcon [id number] - [id number] Implanted:Qt y: 2 on 07/13/2010 at [facility] N/A: Spine Cervical JNJ : [employer] [id number] / / Plate 35mm Xcon [id number] - [id number] Implanted:Qt y: 1 on 07/13/2010 at [facility] N/A: Spine Cervical JNJ : [employer] [id number] / / documented as of this encounter Results * (ABNORMAL) BASIC METABOLIC PANEL (08/30/2023 10:08 AM EST) Pathologist [facility] BUN 9 6 - 20 mg/dL 08/30/2023 6:25 PM EST LABORATORY [facility] Creatinine 0.8 0.5 - 1.0 mg/dL 08/30/2023 6:25 PM EST LAB[facility]ORY [facility] Estimated Glomerular Filtration Rate 74 >=60 mL/min 08/30/2023 6:25 PM EST [facility] Comment:eGFR is calculated b ased on the CKD-EPI 2020 equation Sodium 143 135 - 146 mmol/L 08/30/2023 6:25 PM EST LABORATORY [facility] Potassium 4.4 3.5 - 5.1 mmol/L 08/30/2023 6:25 PM EST LAB[facility]ATORY [facility] Chloride 103 98 - 107 mmol/L 08/30/2023 6:25 PM EST [facility] CO2 27 22 - 32 mmol/L 08/30/2023 6:25 PM EST LABORATORY C Anion Gap 13 7 - 15 mmol/L 08/30/2023 6:25 PM EST [facility] Glucose 182(H) 70 - 120 mg/dL 08/30/2023 6:25 PM EST [facility] Calcium 9.3 8.4 - 10.2 mg/dL 08/30/2023 6:25 PM EST LAB[facility]ORY [facility] Blood Venous blood specimen / Unknown Venipuncture / Unknown 08/30/2023 10:08 AM EST 08/30/2023 10:10 AM EST Isaac Osei [facility] LAB BLOOD O RDERABLES Performing Organization Address [facility] Co de Phone Number [facility]ATORY [facility] [address] [place] [address] * (ABNORMAL) HEMOGLOBIN A1C (08/30/2023 10:08 AM EST) [facility] Hemoglobin A1C 10.2(H) 4.0 - 5.6 % 08/30/2023 5:47 PM EST [facility] Comment:The use of HbA1c to monitor glycemic status is based on normal hemoglobin and HbA composition. This test should not be used in patients with abnormal hemoglobin that affects the half life of the red blood cell or the in vivo glycation rates. Estimated Average Glucose 246(H) <126 mg/dL 08/30/2023 5:47 PM EST [facility] Blood Venous blood specimen / Unknown Venipuncture / Unknown 08/30/2023 10:08 AM EST 08/30/2023 10:10 AM EST Isaac Osei [facility] LAB BLOOD O RDERABLES Performing Organization Address [facility]/ZIP Co de Phone Number [facility]ORY [facility] [address] [place] [address] documented in this encounter Visit Diagnoses Diagnosis Type 2 diabetes mellitus with foot ulcer, with long-term current use of insulin (HCC)- Primary DM (diabetes mellitus) type II, controlled, with peripheral vascular disorder (HCC) documented in this encounter Advance Directives Latest [...] the patient have Health Care Power of Vul[place] Crewmember? No Full Code 07/13/2010 12:29 PM 07/17/2010 4:03 PM Thi s order reflects the patients wishes and were consensually agreed upon. Question Answer Comments Discussion of Advance Directives occurred with: Not Discussed Does the patient have a Living Will? No Does the patient have Health Care Power of Vulcan Crewmember? No Full Code 01/07/2010 6:23 AM 01/07/2010 2:05 PM This or emi reflects the patients wishes and were consensually agreed upon. Question Answer Comments Discussion of Advance Directives occurred with: Patient/Family Does the patient have a Living Will? No Does the patient have Health Care Power of Vulcan Crewmember? No Full Code 10/15/2009 7:12 AM 10/15/2009 9:26 PM This order reflects the patients wishes and were consensually agreed upon. Care Teams Medical Office Rep Relationship Specialty Start Date End Date Alfa Jaramillo MD [address] [place] [address] PCP - General 05/06/00 documented as of this encounter
--- OUTSIDE RECORDS SUMMARY | 2023-11-15 18:38 | External Medical Summary | Summary of Care ---
Author Name Unknown Organization [facility] Address [address] [facility] [place] [address] Phone [phone] Care Team Providers Care Tallow Refiner Name Role Phone Alfa Jaramillo MD Primary Care Provider [phone]- [phone] Encounter Details Date Type Department Care Team (Late st Contact Info) Description 09/18/2023 Telephone OR [facility], Operating Room [facility] [address] [place] [phone] Anselmo Sung MD [address] [place] [address] Allergies Active Allergy Reactions Criticality Noted Date Comments Alendronate Sodium 06/24/2012 Burning sensation and difficulty breathing Proton Pump Inhibitors Hives 02/20/2002 nexium documented as of this encounter (statuses as of 09/25/2023) Medications Medication Sig Dispensed Refills Start Date End Date Status INSULIN SYRINGE 30G X 1/2" 0.5 ML MISCIndications:DM type 2, goal A1c below 7 use for injections daily 3 boxes 3 05/27/2007 Active B-D ULTRAFINE III (5MM) SHORT PEN MISCIndications:DM type 2, goal A1C 7-8 use as directed with sliding scale 500 Pen 3 04/22/2012 Active INSULIN SYRINGE-NEEDLE U-100 30G X 1/2" 1 ML MISCIndications:DM type 1 causing neurological disease, not at goal (HCC) Use twice per day with lantus inject, and 3 times per day for sliding scale 5 Box 3 05/10/2012 Active ONETOUCH ULTRA BLUE STRPIndications:DM type 2, goal A1c below 7 Use to check blood sugar up to 4 times daily 3 Box 3 01/05/2014 Active albuterol (PROAIR HFA) 108 (90 BASE) MCG/ACT inhalerIndications:B deonte, complicated Inhale 2 Puffs by mouth 4 times a day. May substitute proventil or ventolin based on formulary 1 Inhaler 1 04/18/2018 Active Glucose Blood (CONTOUR NEXT TEST) STRP Use with insulin pump to test blood sugars 4 times a day. Dx. E10.9 300 Strip 4 08/29/2019 Active Calcium Carbonate Antacid 500 MG chewable [...] directed. Change every 10 days. Supplied by [facility]: [phone] Active Dexcom G6 Transmitter Use as directed. Change every 90 days. Supplied by [facility]: [phone] Active Dexcom G6 Oyster Fisherman Device Use as directed. 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,Deep vein thrombosis (DVT) (HCC) TAKE ONE TABLET TO ONE AND ONE-HALF TABLET BY MOUTH EVERY DAY DIRECTED BY [facility] 135 Tablet 3 09/13/2023 5 Active documented as of this encounter (statuses as of 09/25/2023) Active Problems Problem Noted Date Diagnosed Date Type 2 diabetes mellitus with foot ulcer (CODE) 09/19/2022 Gastro-esophageal reflux disease without esophag itis 03/27/2022 Major depressive disorder, recurrent, unspecifie d 02/10/2021 DM (diabetes mellitus) type II, controlled, with peripheral vascular disorder 12/08/2020 Coronary artery disease of n ative artery of [place] heart with stable angina pectoris 12/08/2020 History [...] Lipid Taxonomy. 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 * Telephone Encounter - Lea Sandy RN - 09/18/2023 12:10 PM EST As of 09/18/2023 alondra Dutta Efrain patient is no longer a candidate for [facility] due to uncontrolled BSG/ use of nitro/ significant COPD documented in this encounter Plan of Treatment Upcoming Encounters Date Type Department Care Team (Late st Contact Info) Description 09/28/2023 2:30 PM EST [facility] [place] [address] [facility] [address] [facility] [address] [facility], [place] [address] 09/28/2023 2:40 PM EST [facility] [place] [address] [facility] [address] [facility] [address] [facility], [place] [address] 10/18/2023 9:00 AM EDT Office Visit Cardiology, [facility] [address] [place] [address] Nesha Denney CRNP [address] [place] [address] 01/03/2024 1:00 PM EDT Office Visit Family Practice, [place] [address] [facility] [id number] Natalia Heller [facility] [address] [facility] [address] Scheduled Procedures Name Priority Associated Diagnoses Date/Ti [...] D LEVEL ONCE IN A LIFETIME-USE SMARTSET# 50462 Completed 06/18/2020, 07/25/2019, 05/20/2015, Additional history exists LUNG CANCER SCREENING - USE SMARTSET 22135 Completed 12/22/2022, 12/09/2021, 12/24/2020, Additional history exists [...] this encounter Medical Devices Implanted Type Area Atomic Process Engineer Device Identifier Shelf Expiration Date Model / Serial / Lot Graft Cervical 6x8 [id number] - [id number] Implanted:Qt y: 2 on 08/21/2008 at [place] [facility] Tissue - Human Spine Cervical Lifenet Co [id number] / / Screw Spine 14mm 50-014 - [id number] Implanted:Qt y: 2 on 08/21/2008 at OR [facility] N/A: Spine Cervical CARSON [employer] CARSON DEPUY 50-014 / / Depuy [place] 14 Mm Sd Con Scr Implanted:Qt y: 2 on 08/21/2008 at OR [facility] N/A: Spine Cervical CARSON [employer] CARSON DEPUY 60-014 / / Description:Depuy skyline 14 mm SD con SCR 34 Mm Plate Implanted:Qt y: 1 on 08/21/2008 at [place] [facility] N/A: Spine Cervical 034 / / Description:34 mm Depuy plat e 14 Mm Variable Rescue Implanted:Qt y: 2 on 08/21/2008 at [place] [facility] N/A: Spine Cervical 1868-54-014 / / Description:14 mm variable r escue Screw 3.5x14 Mntr Fa [id number] - [id number] Implanted:Qt y: 10 on 07/13/2010 at [place] [facility] N/A: Spine Cervical JNJ : ETHICON CARDIOVATIONS [id number] / / Devaughn 3.7i143fy [id number] - [id number] Implanted:Qt y: 1 on 07/13/2010 at [place] [facility] N/A: Spine Cervical JNJ : ETHICON CARDIOVATIONS [id number] / / Screw Inner Mntr [id number] - [id number] Implanted:Qt y: 8 on 07/13/2010 at [place] [facility] N/A: Spine Cervical JNJ : ETHICON CARDIOVATIONS [id number] / / Nut Outer Xcon [id number] - [id number] Implanted:Qt y: 2 on 07/13/2010 at [place] [facility] N/A: Spine Cervical JNJ : ETHICON CARDIOVATIONS [id number] / / Screw Inner Xcon [id number] - [id number] Implanted:Qt y: 2 on 07/13/2010 at [place] [facility] N/A: Spine Cervical JNJ : ETHICON CARDIOVATIONS [id number] / / Plate 35mm Xcon [id number] - [id number] Implanted:Qt y: 1 on 07/13/2010 at [place] [facility] N/A: Spine Cervical JNJ : ETHICON CARDIOVATIONS [id number] / / documented as of this encounter [...] the patient have Health Care Power of Employment Law Attorney? No Full Code 07/13/2010 12:29 PM 07/17/2010 4:03 PM Thi s order reflects the patients wishes and were consensually agreed upon. Question Answer Comments Discussion of Advance Directives occurred with: Not Discussed Does the patient have a Living Will? No Does the patient have Health Care Power of Employment Law Attorney? No Full Code 01/07/2010 6:23 AM 01/07/2010 2:05 PM This or emi reflects the patients wishes and were consensually agreed upon. Question Answer Comments Discussion of Advance Directives occurred with: Patient/Family Does the patient have a Living Will? No Does the patient have Health Care Power of Employment Law Attorney? No Full Code 10/15/2009 7:12 AM 10/15/2009 9:26 PM This order reflects the patients wishes and were consensually agreed upon. Care Teams Tallow Refiner Relationship Specialty Start Date End Date Alfa Jaramillo MD [address] [place] [address] PCP - General 05/06/00 documented as of this encounter
--- OUTSIDE RECORDS SUMMARY | 2023-11-15 18:38 | External Medical Summary | Summary of Care ---
Author Name Unknown Organization [facility] Address [address] [facility] [place] [address] Phone [phone] Care Team Providers Care Collections Specialist Name Role Phone Alfa Jaramillo MD Primary Care Provider +1- [phone] Reason for Visit * Reason Comments Insulin Pump Dosage Adjustment In Person (Anticoag Cl inic) Diabetes Follow-Up Encounter Details Date Type Department Care Team (Late st Contact Info) Description 10/04/2023 1:30 PM EST Office Visit Pharmacy, [facility] [address] [place] [address] Pharmacist1, [facility] [address] [place] [address] Type 2 diabetes mellitus with foot ulcer, [...] sliding scale 5 Box 3 05/10/2012 Active albuterol (PROAIR HFA) 108 (90 BASE) [...] directed. Change every 10 days. Supplied by [facility]: [phone] Active Dexcom G6 Transmitter Use as directed. Change every 90 days. Supplied by [facility]: [phone] Active Dexcom G6 Routing Equipment Tender Device Use as directed. Supplied by [facility]: [phone] Active Fluticasone Propionate 50 MCG/ACT Nasal Suspension (Flonase)Indication s:Chronic rhinitis Administer 2 Sprays into each nostril in the morning. 16 g 1 11/01/2022 Active Isosorbide Mononitrate ER 60 MG Oral Tablet Extended Release 24 Hour (Imdur) TAKE ONE TABLET BY MOUTH EVERY MORNING 90 Tablet 3 12/29/2022 12/29/19 24 Active Nitroglycerin 0.3 MG Sublingual Tablet Sublingual (Nitrostat) PLACE 1 TABLET UNDER THE TONGUE EVERY 5 MINUTES UP TO 3 DOSES NEEDED FOR CHEST PAIN. 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) TAKE ONE TABLET BY MOUTH TWICE A DAY WITH FOOD 180 Tablet 11/16/2022 12/12/19 24 Active Metoprolol Succinate ER 50 MG Oral Tablet Extended Release 24 Hour (toPROL XL) TAKE ONE TABLET BY MOUTH TWICE A DAY 180 Tablet 3 11/16/2022 12/12/19 24 Active Ozempic (2 MG/DOSE) 8 [...] 05/04/2023 Active Pregabalin 150 MG Oral Capsule (Lyrica)Indications :Diabetic polyneuropathy associated with type 1 diabetes mellitus (HCC) TAKE ONE CAPSULE BY MOUTH TWICE A DAY 180 Capsule 1 08/20/2023 02/19/20 24 Active Warfarin Sodium 5 MG Oral Tablet (Coumadin)Indicatio ns:[facility] current use of anticoagulant therapy,Deep vein thrombosis (DVT) ([facility]) TAKE ONE TABLET TO ONE AND ONE-HALF TABLET BY MOUTH EVERY DAY DIRECTED BY [facility]ADIN CLINIC 135 Tablet 3 09/13/2023 02/07/20 25 Active Insulin Aspart 100 UNIT/ML Injection Solution (NovoLOG)Indication s:Type 2 diabetes mellitus with foot ulcer, with long-term current use of insulin ([facility]),DM (diabetes mellitus) type II, controlled, with peripheral vascular disorder ([facility]) FOR USE WITH AN INSULIN PUMP, UP TO 310 UNITS DAILY- dose increase 300 mL 11 10/01/2023 Active Accu-Chek Guide In Vitro Strip (Glucose Blood)Indications:T ype 2 diabetes mellitus with foot ulcer, with long-term current use of insulin ([facility]),DM (diabetes mellitus) type II, controlled, with peripheral vascular disorder ([facility]) Use to test blood glucose 4 times daily. E11.9 400 Strip 3 10/04/2023 Active Accu-Chek Guide Me w/Device KitIndications:Type 2 diabetes mellitus with foot ulcer, with long-term current use of insulin ([facility]),DM (diabetes mellitus) type II, controlled, with peripheral vascular disorder ([facility]) Use as directed. 0 10/04/2023 Acti ve Accu-Chek Softclix LancetsIndications: Type 2 diabetes mellitus with foot ulcer, with long-term current use of insulin ([facility]),DM (diabetes mellitus) type II, controlled, with peripheral vascular disorder ([facility]) Use to test blood glucose 4 times daily. DX: E11.9 400 Each 3 10/04/2023 Active ONETOUCH ULTRA BLUE STRPIndications:DM type 2, goal A1c below 7 Use to check blood sugar up to 4 times daily 3 Box 3 01/05/2014 10/04/19 24 Discontinu ed(Medicat ion/Dose Changed) Glucose Blood (CONTOUR NEXT TEST) STRP Use with insulin pump to test blood sugars 4 times a day. Dx. E10.9 300 Strip 4 08/29/2019 10/04/19 24 Discontinu ed(Medicat ion/Dose Changed) documented as of this encounter (statuses as of 10/04/2023) Active Problems Problem Noted Date Diagnosed Date Type 2 diabetes mellitus with foot ulcer (CODE) 09/19/2022 Gastro-esophageal reflux disease without esophag itis 03/27/2022 Major depressive disorder, recurrent, unspecifie d 02/10/2021 DM (diabetes mellitus) type II, controlled, with peripheral vascular disorder 12/08/2020 Coronary artery disease of n ative artery of [place] heart with stable angina pectoris 12/08/2020 History [...] Per Lipid Taxonomy. 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 Going from 630G to 780G. Current Diabetes Medications: Metformin 1000mg twice daily Ozempic 2 mg once weekly- Sundays GFR 74 as of 08/30/23 Medtronic 630G Insulin Pump (Serial Number: [id number]) Infusion Set: Quick set Insulin: Novolog Basal Rate: midnight to 6am 7.25 units/hour 6am to 12am: 8.2 units/hour 12am to midnight 8.6 units/hour Bolus: 25 units with breakfast, 45 units with lunch and 40 units with supper (adds difference to preset bolus of 25 for lunch and supper) Bolus wizard: on and using ICR: 5 (using preset) ISF: 10 (strengthen) Blood Glucose Goals: 96-180 Active Insulin Time: 2 hours Patient Active Problem List Diagnosis Code 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 Z79.01 Cervical spinal stenosis M48.02 DYSLIPIDEMIA, GOAL LDL BELOW 100 E78.5 Senile osteoporosis M81.0 COPD, moderate ([facility]) J44.9 History of DVT (deep vein thrombosis) Z86.718 History of breast cancer Z85.3 B12 deficiency E53.8 Diabetic polyneuropathy associated with type 2 diabetes mellitus ([facility]) E11.42 Diabetic cataract, associated with type 1 diabetes mellitus ([facility]) E10.36 Type 2 diabetes mellitus with skin complication, with long-term current use of insulin ([facility]) E11.628, Z79.4 Chronic atrial fibrillation ([facility]) I48.20 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 ([facility]) Z89.411 History of ankle surgery Z98.890 DM (diabetes mellitus) type II, controlled, with peripheral vascular disorder ([facility]) E11.51 Coronary artery disease of [place] artery of [place] heart with stable angina pectoris ([facility]) I25.118 Major depressive disorder, recurrent, unspecified ([facility]) F33.9 Gastro-esophageal reflux disease without esophagitis K21.9 Type 2 diabetes mellitus with foot ulcer (CODE) ([facility]) E11.621 Review of patient's allergies indicates: Allergen [...] ventolin based on formulary 1 Inhaler 1 Glucose Blood (CONTOUR NEXT [...] directed. Change every 10 days. Supplied by [facility]: [phone] Dexcom G6 Transmitter Use as directed. Change every 90 days. Supplied by [facility]: [phone] Optinuity G6 Routing Equipment Tender Device Use as directed. Supplied by [facility]: [phone] Fluticasone Propionate 50 MCG/ACT Nasal Suspension (Flonase) [...] UNITS DAILY- dose increase 300 mL 11 No current facility-administered medications for this visit. Objective: The ASCVD Risk score (Waycross DK, et al., 2019) failed to calculate for the following reasons: The patient has a prior [place] or stroke diagnosis Estimated body mass index is 33.28 kg/m as calculated from the following: Height as of 09/12/23: 1.651 m (5' 5"). Weight as of 09/12/23: 90.7 kg (200 lb). BP Readings from Last 3 Encounters: 09/18/23 90/55 07/05/23 122/80 05/18/23 130/74 No results found for: "POC" No components found for: "[id number]" No results found for: "MICROALBUMIN" Lab Results Component Value Date/Time LDL CHOLESTEROL (CALCULATED) - Resonate 83 01/02/2023 02:10 PM LDL CHOLESTEROL (CALCULATED) - ResonateER 81 10/19/2017 09:32 AM LDL CHOLESTEROL (DIRECT MEASURE) - Tag & See 93 12/08/2020 09:59 AM LDL CHOLESTEROL (DIRECT MEASURE) - Resonate 102 06/18/2020 09:03 AM LDL CHOLESTEROL (DIRECT MEASURE) - SIDNEY 47 01/05/2014 04:02 PM Lab Results Component Value Date/Time ALT 43 07/09/1996 11:15 AM ALT - SIDNEY 24 07/05/2023 01:32 PM ALT - SIDNEY 35 06/18/2020 09:03 AM Assessment & Plan: The following education was completed in clinic today: Reviewed pump basics, including: Pump supplies and how to reorder Home screen, pump buttons, battery and reservoir compartments, serial number Medtronic help line and clinic phone number for 26/02 support Modes of operation (normal, temp basal, low battery/reservoir, suspend) Status screen Main menu features Initial pump settings programmed as noted below under medications. Reviewed how to update alert type and time/date Basal rate programmed Bolus settings programmed, including: ICR, ISF, BG target & active insulin Taught patient how to use bolus wizard, including: Based on ICR/fixed dose only (no glucose reading) Correction dose only (blood glucose reading, no carb intake) Carb intake plus correction Taught patient how to manage hyperglycemia (blood glucose >250mg/dL), including: If bolus wizard ON, enter blood glucose into pump and deliver correction dose If bolus wizard OFF, give manual bolus using correction scale Recheck blood glucose in 1-2 hours If blood glucose remains >250mg/dL: - give a correction dose via syringe - change infusion set, site, reservoir and insulin Contact clinic if blood glucose remains >250mg/dL despite above Reviewed suspend feature and discussed appropriate use. Patient demonstrated ability to fill reservoir and attach infusion kit (set change) Patient instructed to SMBG at least 4 times daily, before each meal and at bedtime. Diabetes Medications: Metformin 1000mg twice daily Ozempic 2 mg once weekly- Sundays GFR 74 as of 08/30/23 Medtronic 780G Insulin Pump (Serial Number: Get at next visit) Infusion Set: Quick set Insulin: Novolog Basal [...] insulin needles Toujeo U300 60 units BID Patient hereby agrees they have received the full training today pursuant to the [employer] curriculum for: Pump Upgrade Training (to new platform) on 10/04/2023, 1:20 PM. Attestation by Gianni Mccall RPh. Return to Clinic: 2 week(s) Visit date not found Gianni Mccall RPh Clinical Pharmacist Medication Therapy Disease Management 10/04/2023, 1:20 PM documented in this encounter Plan of Treatment Upcoming Encounters Date Type Department Care Team (Late st Contact Info) Description 10/18/2023 9:00 AM EDT Office Visit Cardiology, [facility] [address] [place] [address] Nesha Denney CRNP [address] [place] [address] 10/24/2023 2:30 PM EDT [address] [address] [facility] [address] [facility] [address] 10/24/2023 2:40 PM EDT [address] [address] [facility] [address] [facility] [address] 01/03/2024 1:00 PM EDT Office [address] Practice, [address] [phone] Natalia Heller PA-C [address] [place] [address] Scheduled Procedures Name Priority Associated Diagnoses Date/Ti [...] D LEVEL ONCE IN A LIFETIME-USE SMARTSET# [id number] Completed 06/18/2020, 07/25/2019, 05/20/2015, Additional history exists LUNG CANCER SCREENING - USE SMARTSET 29256 Completed 12/22/2022, 12/09/2021, 12/24/2020, Additional history exists [...] this encounter Medical Devices Implanted Type Area Application Integration Engineer Device Identifier Shelf Expiration Date Model / Serial / Lot Graft Cervical 6x8 [id number] - [id number] Implanted:Qt y: 2 on 08/21/2008 at [facility] Tissue - Human Spine Cervical Lifenet Co [id number] / / Screw Spine 14mm 50- - [id number] Implanted:Qt y: 2 on 08/21/2008 at OR [facility] N/A: Spine Cervical CARSON & CARSON DEPUY 50014 / / Depuy [place] 14 Mm Sd Con Scr Implanted:Qt y: 2 on 08/21/2008 at OR [facility] N/A: Spine Cervical [employer]SON [employer] CARSON DEPUY 60014 / / Description:Depuy skyline 14 mm SD con SCR 34 Mm Plate Implanted:Qt y: 1 on 08/21/2008 at OR [facility] N/A: Spine Cervical 1867-09- / / Description:34 mm Depuy plat e 14 Mm Variable Rescue Implanted:Qt y: 2 on 08/21/2008 at [facility] N/A: Spine Cervical 1868-54-014 / / Description:14 mm variable r escue Screw 3.5x14 Mntr Fa [id number] - [id number] Implanted:Qt y: 10 on 07/13/2010 at [facility] N/A: Spine Cervical JNJ : ETHICON CARDIOVATIONS [id number] / / Devaughn [id number] - [id number] Implanted:Qt y: 1 on 07/13/2010 at OR [facility] N/A: Spine Cervical JNJ : ETHICON CARDIOVATIONS [id number] / / Screw Inner Mntr [id number] - [id number] Implanted:Qt y: 8 on 07/13/2010 at OR [facility] N/A: Spine Cervical JNJ : ETHICON CARDIOVATIONS [id number] / / Nut Outer Xcon [id number] - [id number] Implanted:Qt y: 2 on 07/13/2010 at OR [facility] N/A: Spine Cervical JNJ : ETHICON CARDIOVATIONS [id number] / / Screw Inner Xcon [id number] - [id number] Implanted:Qt y: 2 on 07/13/2010 at OR [facility] N/A: Spine Cervical JNJ : ETHICON CARDIOVATIONS [id number] / / Plate 35mm Xcon [id number] - [id number] Implanted:Qt y: 1 on 07/13/2010 at [facility] N/A: Spine Cervical JNJ : ETHICON CARDIOVATIONS [id number] / / documented as of this encounter [...] the patient have Health Care Power of Computer Art Instructor? No Full Code 07/13/2010 12:29 PM 07/17/2010 4:03 PM Thi s order reflects the patients wishes and were consensually agreed upon. Question Answer Comments Discussion of Advance Directives occurred with: Not Discussed Does the patient have a Living Will? No Does the patient have Health Care Power of Computer Art Instructor? No Full Code 01/07/2010 6:23 AM 01/07/2010 2:05 PM This or emi reflects the patients wishes and were consensually agreed upon. Question Answer Comments Discussion of Advance Directives occurred with: Patient/Family Does the patient have a Living Will? No Does the patient have Health Care Power of Computer Art Instructor? No Full Code 10/15/2009 7:12 AM 10/15/2009 9:26 PM This order reflects the patients wishes and were consensually agreed upon. Care Teams Collections Specialist Relationship Specialty Start Date End Date Alfa Jaramillo MD [address] [place] [address] PCP - General 05/06/00 documented as of this encounter
--- OUTSIDE RECORDS SUMMARY | 2023-11-15 18:38 | External Medical Summary | Summary of Care ---
Author Name Unknown Organization [facility] Address [address] [facility] [place] [address] Phone [phone] Care Team Providers Care Detective Narcotics And Vice Name Role Phone Alfa Jaramillo MD Primary Care Provider +1- [phone] Reason for Visit * Reason Comments Dosage Adjustment In Person (Anticoag Cl inic) Diabetes Follow-Up Insulin Pump Encounter Details Date Type Department Care Team (Late st Contact Info) Description 09/28/2023 2:40 PM EST Office Visit Pharmacy, [address] [address] [facility] [address] [place] [address] Type 2 diabetes mellitus with foot ulcer, with long-term current use of insulin (HCC)*; DM (diabetes mellitus) type II, controlled, with peripheral vascular disorder (HCC) Allergies Active Allergy Reactions Criticality Noted Date Comments Alendronate Sodium 06/24/2012 Burning sensation and difficulty breathing Proton Pump Inhibitors Hives 02/20/2002 nexium documented as of this encounter (statuses as of 09/28/2023) Medications Medication Sig Dispensed Refills Start Date [...] daily . 90 Tablet 3 03/27/2022 Active Toujosyo Max SoloStar 300 UNIT/ML Subcutaneous Solution Pen-injector [...] directed. Change every 10 days. Supplied by [employer]: [phone] 0 Active Dexcom G6 Transmitter Use as directed. Change every 90 days. Supplied by [employer]: [phone] Active Dexcom G6 Boiler Reliner Device Use as directed. 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) TAKE ONE TABLET BY MOUTH TWICE A DAY WITH FOOD 180 Tablet 3 11/16/2022 12/12/19 24 Active Metoprolol Succinate ER [...] Warfarin Sodium 5 MG Oral Tablet (Coumadin)Indicatio ns:retirement current use of anticoagulant therapy,Deep vein thrombosis (DVT) (HCC) TAKE ONE TABLET TO ONE AND ONE-HALF TABLET BY MOUTH EVERY DAY DIRECTED BY [facility] 135 Tablet 3 09/13/2023 09/12/19 25 Active Insulin Aspart 100 UNIT/ML Injection Solution (NovoLOG)Indication s:Type 2 diabetes mellitus with foot ulcer, with long-term current use of insulin (HCC) FOR USE WITH AN INSULIN PUMP, UP TO 310 UNITS DAILY- dose increase 300 mL 11 09/28/2023 Active Insulin Aspart 100 UNIT/ML Injection Solution (NovoLOG)Indication s:Type 2 diabetes mellitus with foot ulcer, with long-term current use of insulin ([facility]) FOR USE WITH AN INSULIN PUMP, UP TO 300 UNITS DAILY 270 mL 0 09/23/2023 09/28/19 24 Discontinu ed(Refill) documented as of this encounter (statuses as of 09/28/2023) Active Problems Problem Noted Date Diagnosed Date Type 2 diabetes mellitus with foot ulcer (CODE) 09/19/2022 Gastro-esophageal reflux disease without esophag itis 03/27/2022 Major depressive disorder, recurrent, unspecifie d 02/10/2021 DM (diabetes mellitus) type II, controlled, with peripheral vascular disorder 12/08/2020 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 Medication Therapy Disease Management - CSII Follow-up Interval History: Graciela Mobley is an 73 year old year old female returning to the [facility] for a diabetes insulin pump follow-up visit. Blood glucose control since last visit: stable Medication intolerance: no Medication compliance: yes Medication contraindications: no Complicating factors/cost barriers: no Hospitalization or ED Utilization since last visit: no Hypoglycemia requiring assistance since last visit: no Current Diabetes Medications: Metformin 1000mg twice daily Ozempic 2 mg once weekly- Sundays GFR 80 as of 09/19/22 Medtronic 630G Insulin Pump (Serial Number: [id number]) Infusion Set: Quick set Insulin: Novolog Basal [...] Blood Glucose Goals: 96-180 Active Insulin Time: 3 hours Back up plan in event of pump malfunction: Novolog vial with insulin needles Toujeo U300 60 units BID Hypoglycemia Assessment: 1. Do you know what the symptoms of hypoglycemia are? Yes 2. How often can you tell by your symptoms if your blood sugar is low? Always 3. In a typical week, how many times will your blood sugar go below 70 mg/dL? Never Patient Active Problem List Diagnosis Code retirement current use of anticoagulant therapy Z79.01 Cervical spinal stenosis M48.02 DYSLIPIDEMIA, GOAL LDL BELOW 100 E78.5 Senile osteoporosis M81.0 COPD, moderate ([facility]) J44.9 History of DVT (deep vein thrombosis) Z86.718 History of breast cancer Z85.3 B12 deficiency E53.8 Diabetic polyneuropathy associated with type 2 diabetes mellitus ([facility]) E11.42 Diabetic cataract, associated with type 1 diabetes mellitus ([facility]) E10.36 Type 2 diabetes mellitus with skin complication, with long-term current use of insulin ([facility]) E11.628, Z79.4 Chronic atrial fibrillation ([facility]) I48.20 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 ([facility]) Z89.411 History of ankle surgery Z98.890 DM (diabetes mellitus) type II, controlled, with peripheral vascular disorder ([facility]) E11.51 Coronary artery disease of sun'aq artery of sun'aq heart with stable angina pectoris ([facility]) I25.118 Major depressive disorder, recurrent, unspecified ([facility]) F33.9 Gastro-esophageal reflux disease without esophagitis K21.9 Type 2 diabetes mellitus with foot ulcer (CODE) ([facility]) E11.621 Review of patient's allergies indicates: Allergen Reactions Alendronate Sodium Burning sensation and difficulty breathing Proton Pump Inhibitors Hives nexium Current Outpatient Medications Medication Sig Dispense Refill Insulin Aspart 100 UNIT/ML Injection Solution (NovoLOG) FOR USE WITH AN INSULIN PUMP, UP TO 310 UNITS DAILY- dose increase 300 mL 11 INSULIN SYRINGE 30G X 1/2" 0.5 ML [...] directed. Change every 10 days. Supplied by [employer]: [phone] OpenSpace G6 Transmitter Use as directed. Change every 90 days. Supplied by [employer]: [phone] OpenSpace G6 Boiler Reliner Device Use as directed. Supplied by [employer]: [phone] Fluticasone Propionate 50 MCG/ACT Nasal Suspension (Flonase) [...] DIRECTED BY [facility] 135 Tablet 3 No current facility-administered medications for this visit. Objective: The ASCVD Risk score ([place] DK, et al., 2019) failed to calculate for the following reasons: The patient has a prior [place] or stroke diagnosis Estimated body mass index is 33.28 kg/m as calculated from the following: Height as of 09/12/23: 1.651 m (5' 5"). Weight as of 09/12/23: 90.7 kg (200 lb). BP Readings from Last 3 Encounters: 09/18/23 90/55 07/05/23 122/80 05/18/23 130/74 No components found for: "[id number]" No results found for: "MICROALBUMIN" Lab Results Component Value Date/Time LDL CHOLESTEROL (CALCULATED) - [facility] 83 01/02/2023 02:10 PM LDL CHOLESTEROL (CALCULATED) - [facility] 81 10/19/2017 09:32 AM LDL CHOLESTEROL (DIRECT MEASURE) - [facility] 93 12/08/2020 09:59 AM LDL CHOLESTEROL (DIRECT MEASURE) - [facility] 102 06/18/2020 09:03 AM LDL CHOLESTEROL (DIRECT MEASURE) - 10-20 [facility] 47 01/05/2014 04:02 PM Lab Results Component Value Date/Time ALT 43 07/09/1996 11:15 AM ALT - 10-20 [facility] 24 07/05/2023 01:32 PM [facility] 35 06/18/2020 09:03 AM Assessment & Plan: Pt presented today expecting to get a 780G upgrade. This [place] clinic is not yet certified on 780G, and therefore visit scheduled for next week for patient to get appropriate training. She will need BGmeter linked, but will not be using BG sensor. Patient agreeable to schedule with [facility] Brizuela. Glycemic control is unstable and not at goal Patient agreeable to adjust medications as noted below. Basal settings continued as glucose is stable overnight and between meals. ICR/fixed dose continued as pt is pretty much maxed on these doses. ISF strengthened as glucose is not correcting to goal range. Insulin duration also shortened to seeif this helps for patient to get better correction doses mid-afternoon. Patient to SMBG at least 4 times daily, before each meal and at bedtime. Patient aware to contact clinic if any hypoglycemia before next visit. Reviewed rule of 15s. Reviewed appropriate management of hyperglycemia as noted in pump start documentation. Diabetes Medications: Metformin 1000mg twice daily Ozempic 2 mg once weekly- Sundays GFR 74 as of 08/30/23 Medtronic 630G Insulin Pump (Serial Number: [id number]) Infusion Set: Quick set Insulin: Novolog Basal [...] U300 60 units BID Diabetes Health Maintenance: not addressed at today's visit. Return to this Clinic: 4 week(s) 10/24/2023 Shanthi Franks RPh Clinical Pharmacist Medication Therapy Disease Management 09/28/2023, 2:34 PM documented in this encounter Plan of Treatment Upcoming Encounters Date Type Department Care Team (Late st Contact Info) Description 10/04/2023 1:30 PM EST [facility] Visit Pharm[facility], [facility] [address] [facility] [place] [address] Pharmacist1, [facility] [address] [place] [address] 10/18/2023 9:00 AM EDT Office Visit Cardiology, [facility] [address] [facility] [address] Nesha Denney CRNP [address] [facility] [address] 10/24/2023 2:30 PM EDT Anticoagulation Pharmacy, [place] [address] [place] [facility] [place] [address] [facility] [address] [place] [address] 10/24/2023 2:40 PM EDT Office Visit Pharmacy, [place] [address] [place] [facility] [place] [address] [facility] [address] [place] [address] 01/03/2024 1:00 PM EDT Office Visit Family [facility] [place] [address] [place] [facility] [place] [id number] Natalia Heller PA-C [address] [place] [address] Scheduled Procedures Name Priority Associated Diagnoses Date/Ti [...] D LEVEL ONCE IN A LIFETIME-USE SMARTSET# 76334 Completed 06/18/2020, 07/25/2019, 05/20/2015, Additional history exists LUNG CANCER SCREENING - USE SMARTSET 60704 Completed 12/22/2022, 12/09/2021, 12/24/2020, Additional history exists [...] this encounter Medical Devices Implanted Type Area Oil Fire Specialist Device Identifier Shelf Expiration Date Model / Serial / Lot Graft Cervical 6x8 [id number] - [id number] Implanted:Qt y: 2 [place] [facility] [place] - Human Spine Cervical Lif[employer]et Co [id number] / / Screw Spine 14mm 8-50-014 - [id number] Implanted:Qt y: 2 on 08/21/2008 [place] [facility] [place]: Spine Cervical CARSON & ACRSON DEPUY 1868-50-014 / / Depuy Scandia 14 Mm Sd Con Scr Implanted:Qt y: 2 on 08/21/2008 [place] [facility] [place]: Spine Cervical CARSON [employer] CARSON DEPUY 1868-60-014 / / Description:Depuy skyline 14 mm SD con SCR 34 Mm Plate Implanted:Qt y: 1 on 08/21/2008 [place] [facility] [place]/A: Spine Cervical [id number] / / Description:34 mm Depuy plat e 14 Mm Variable Rescue Implanted:Qt y: 2 on 08/21/2008 [place] [facility] [place]A: Spine Cervical [id number] / / Description:14 mm variable r escue Screw 3.5x14 Mntr Fa [id number] - [id number] Implanted:Qt y: 10 on 07/13/2010 [place] [facility] [place]: Spine Cervical JNJ : ETHICON CARDIOVATIONS [id number] / / Devaughn [id number] - [id number] Implanted:Qt y: 1 on 07/13/2010 [place] [facility] [place]: Spine Cervical JNJ : ETHICON CARDIOVATIONS [id number] / / Screw Inner Mntr [id number] - [id number] Implanted:Qt y: 8 on 07/13/2010 [place] [facility] [place]: Spine Cervical JNJ : ETHICON CARDIOVATIONS [id number] / / Nut Outer Xcon [id number] - [id number] Implanted:Qt y: 2 on 07/13/2010 [place] [facility] [place]: Spine Cervical JNJ : ETHICON CARDIOVATIONS [id number] / / Screw Inner Xcon [id number] - [id number] Implanted:Qt y: 2 on 07/13/2010 [place] [facility] [place]: Spine Cervical JNJ : ETHICON CARDIOVATIONS [id number] / / Plate 35mm Xcon [id number] - [id number] Implanted:Qt y: 1 on 07/13/2010 [place] [facility] [place]: Spine Cervical JNJ : ETHICON CARDIOVATIONS [id number] / / documented as of this encounter [...] the patient have Health Care Power of Marble Cutter? No Full Code 07/13/2010 12:29 PM 07/17/2010 4:03 PM Thi s order reflects the patients wishes and were consensually agreed upon. Question Answer Comments Discussion of Advance Directives occurred with: Not Discussed Does the patient have a Living Will? No Does the patient have Health Care Power of Marble Cutter? No Full Code 01/07/2010 6:23 AM 01/07/2010 2:05 PM This or emi reflects the patients wishes and were consensually agreed upon. Question Answer Comments Discussion of Advance Directives occurred with: Patient/Family Does the patient have a Living Will? No Does the patient have Health Care Power of Marble Cutter? No Full Code 10/15/2009 7:12 AM 10/15/2009 9:26 PM This order reflects the patients wishes and were consensually agreed upon. Care Teams Detective Narcotics And Vice Relationship Specialty Start Date End Date Alfa Jaramillo MD [address] [place] [address] PCP - General 05/06/00 documented as of this encounter
--- OUTSIDE RECORDS SUMMARY | 2023-11-15 18:38 | External Medical Summary | Summary of Care ---
Author Name Unknown Organization [facility] Address [address] [facility] [place] [address] Phone [phone] Care Team Providers Care Oil Well Fishing Tool Technician Name Role Phone Alfa Jaramillo MD Primary Care Provider +1- [phone] Reason for Visit * Reason Onset Date Comments Medication Question 09/28/2023 Encounter Details Date Type Department Care Team (Late st Contact Info) Description 09/28/2023 Telephone Pharmacy Call Center [address] [place] [address] Magda Esqueda, [facility] [address] [facility] [address] Medication Question Allergies Active Allergy Reactions Criticality Noted Date Comments Alendronate Sodium 06/24/2012 Burning sensation and difficulty breathing Proton Pump Inhibitors Hives 02/20/2002 nexium documented as of this encounter (statuses as of 10/01/2023) Medications Medication Sig Dispensed Refills Start Date [...] directed. Change every 10 days. Supplied by [employer]: [phone] 0 Active Dexcom G6 Transmitter Use as directed. Change every 90 days. Supplied by [employer]: [phone] Active Dexcom G6 Sweatband Maker Device Use as directed. Supplied by [employer]: [phone] Active Fluticasone Propionate 50 MCG/ACT Nasal [...] Warfarin Sodium 5 MG Oral Tablet (Coumadin)Indicatio ns:senior living current use of anticoagulant therapy,Deep vein thrombosis (DVT) (HCC) TAKE ONE TABLET TO ONE AND ONE-HALF TABLET BY MOUTH EVERY DAY DIRECTED BY [facility] 135 Tablet 3 09/13/2023 09/12/19 25 Active Insulin Aspart 100 UNIT/ML Injection Solution (NovoLOG)Indication s:Type 2 diabetes mellitus with foot ulcer, with long-term current use of insulin ([facility]),DM (diabetes mellitus) type II, controlled, with peripheral vascular disorder ([facility]) FOR USE WITH AN INSULIN PUMP, UP TO 310 UNITS DAILY- dose increase 300 mL 11 10/01/2023 Active Insulin Aspart 100 UNIT/ML Injection Solution (NovoLOG)Indication s:Type 2 diabetes mellitus with foot ulcer, with long-term current use of insulin ([facility]) FOR USE WITH AN INSULIN PUMP, UP TO 310 UNITS DAILY- dose increase 300 mL 11 09/28/2023 10/01/19 24 Discontinu ed(Refill) documented as of this encounter (statuses as of 10/01/2023) Active Problems Problem Noted Date Diagnosed Date Type 2 diabetes mellitus with foot ulcer (CODE) 09/19/2022 Gastro-esophageal reflux disease without esophag itis 03/27/2022 Major depressive disorder, recurrent, unspecifie d 02/10/2021 DM (diabetes mellitus) type II, controlled, with peripheral vascular disorder 12/08/2020 Coronary artery disease of n ative artery of [place] heart with stable angina pectoris 12/08/2020 History [...] Per Lipid Taxonomy. Cervical spinal stenosis 08/21/2008 senior living current use of anticoagulant therapy 0 05/03/2005 documented as of this encounter (statuses as of 10/01/2023) Resolved Problems Problem Noted Date Diagnosed Date [...] as of this encounter (statuses as of 10/01/2023) Immunizations Name Administration Dates Next Due COVID-19 [...] as of this encounter Miscellaneous Notes * Addendum Note - Sana Franks RPh - 10/01/2023 11:33 AM EST Addended by: SANA FRANKS on: 10/01/2023 11:33 AM Modules accepted: Orders * Telephone Encounter - Sana Franks RPh - 10/01/2023 11:30 AM EST Patient Phone Numbers Spoke to patient- [facility] not been able to get insulin. She would like to use [facility]. Script sent. Sana Franks, PharmD, BCACP Clinical Pharmacist Medication Therapy Disease Management 10/01/2023, 11:31 AM * Telephone Encounter - Yanira Kaur RPh - 09/29/2023 6:16 PM EST Agree with plan as documented. Yanira Kaur RPh Clinical Pharmacist 09/29/2023, 6:16 PM * Telephone Encounter - Magda Esqueda RPh - 09/28/2023 8:58 PM EST Contacts Type Contact Phone/Fax 09/28/2023 08:58 PM EST Phone (Outgoing) Graciela Mobley (Self) [phone] (H) Spoke to Patient Pt called and left VM after clinic hours. 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 Currently on Medtronic 630G insulin pump. Called to confirm pt has enough supply at home. [facility] provided pt 3 vials of Novolog. Requesting return call from [facility] clinic on Sunday to discuss piece work inspector solution. Pt wondering if she can switch to mail order. Routed message to [facility] pharmacist. Magda Esqueda, PharmD PGY1 Machine Or Machinery Mechanic 09/28/2023 9:03 PM documented in this encounter Plan of Treatment Upcoming Encounters Date Type Department Care Team (Late st Contact Info) Description 10/04/2023 1:30 PM EST Office Visit Pharmacy, [facility] [address] [facility] [place] [address] Pharmacist1, [facility] [address] [facility] [place] [address] 10/18/2023 9:00 AM EDT Office Visit Cardiology, [facility] [address] [place] [address] Nesha Denney CRNP [address] [place] [address] 10/24/2023 2:30 PM EDT [address] [place] [address] 10/24/2023 2:40 PM EDT Office Visit Pharmacy, [place] [address] [facility] [address] [facility] [address] [facility] [address] 01/03/2024 1:00 PM EDT Office Visit Family Practice, [place] [address] [facility] [id number] Natalia Heller PA-C [address] [facility] [address] Scheduled Procedures Name Priority Associated Diagnoses Date/Ti [...] D LEVEL ONCE IN A LIFETIME-USE SMARTSET# 52121 Completed 06/18/2020, 07/25/2019, 05/20/2015, Additional history exists LUNG CANCER SCREENING - USE SMARTSET 75570 Completed 12/22/2022, 12/09/2021, 12/24/2020, Additional history exists [...] this encounter Medical Devices Implanted Type Area Male Model Device Identifier Shelf Expiration Date Model / Serial / Lot Graft Cervical 6x8 [id number] - [id number] Implanted:Qt y: 2 on 08/21/2008 at [place] [facility] [place] Tissue - Human Spine Cervical Lifenet Co [id number] / / Screw Spine 14mm - [id number] Implanted:Qt y: 2 on 08/21/2008 at [place] [facility] [place] N/A: Spine Cervical CARSON & CARSON DEPUY / / Depuy Kline 14 Mm Sd Con Scr Implanted:Qt y: 2 on 08/21/2008 at [place] [facility] [place] N/A: Spine Cervical CARSON [employer] CARSON DEPUY / / Description:Depuy skyline 14 mm SD con SCR 34 Mm Plate Implanted:Qt y: 1 on 08/21/2008 at [place] [facility] [place] N/A: Spine Cervical / / Description:34 mm Depuy plat e 14 Mm Variable Rescue Implanted:Qt y: 2 on 08/21/2008 at [place] [facility] [place] N/A: Spine Cervical / / Description:14 mm variable r escue Screw 3.5x14 Mntr Fa [id number] - [id number] Implanted:Qt y: 10 on 07/13/2010 at [place] [facility] [place] N/A: Spine Cervical JNJ : ETHICON CARDIOVATIONS [id number] / / Devaughn [id number] - [id number] Implanted:Qt y: 1 on 07/13/2010 at [place] [facility] [place] N/A: Spine Cervical JNJ : ETHICON CARDIOVATIONS [id number] / / Screw Inner Mntr [id number] - [id number] Implanted:Qt y: 8 on 07/13/2010 at [place] [facility] [place] N/A: Spine Cervical JNJ : ETHICON CARDIOVATIONS [id number] / / Nut Outer Xcon [id number] - [id number] Implanted:Qt y: 2 on 07/13/2010 at [place] [facility] [place] N/A: Spine Cervical JNJ : ETHICON CARDIOVATIONS [id number] / / Screw Inner Xcon [id number] - [id number] Implanted:Qt y: 2 on 07/13/2010 at [place] [facility] [place] N/A: Spine Cervical JNJ : ETHICON CARDIOVATIONS [id number] / / Plate 35mm Xcon [id number] - [id number] Implanted:Qt y: 1 on 07/13/2010 at [place] [facility] [place] N/A: Spine Cervical JNJ : ETHICON CARDIOVATIONS [id number] / / documented as of this encounter [...] the patient have Health Care Power of Electrotyper Apprentice? No Full Code 07/13/2010 12:29 PM 07/17/2010 4:03 PM Thi s order reflects the patients wishes and were consensually agreed upon. Question Answer Comments Discussion of Advance Directives occurred with: Not Discussed Does the patient have a Living Will? No Does the patient have Health Care Power of Electrotyper Apprentice? No Full Code 01/07/2010 6:23 AM 01/07/2010 2:05 PM This or emi reflects the patients wishes and were consensually agreed upon. Question Answer Comments Discussion of Advance Directives occurred with: Patient/Family Does the patient have a Living Will? No Does the patient have Health Care Power of Electrotyper Apprentice? No Full Code 10/15/2009 7:12 AM 10/15/2009 9:26 PM This order reflects the patients wishes and were consensually agreed upon. Care Teams Oil Well Fishing Tool Technician Relationship Specialty Start Date End Date Alfa Jaramillo MD [address] [place] [address] PCP - General 05/06/00 documented as of this encounter
--- OUTSIDE RECORDS SUMMARY | 2023-11-15 18:38 | External Medical Summary | Summary of Care ---
Author Name Unknown Organization [facility] Address [address] [facility] [place] [address] Phone [phone] Care Team Providers Care Plastic Surgery Specialist Name Role Phone Alfa Jaramillo MD Primary Care Provider [phone]- [phone] Reason for Visit * Reason Onset Date Comments Medication Question 09/28/2023 Encounter Details Date Type Department Care Team (Late st Contact Info) Description 09/28/2023 Telephone Pharmacy Call Center [address] [place] [address] [facility] [address] [place] [address] Medication Question Allergies Active Allergy Reactions Criticality [...] directed. Change every 10 days. Supplied by [facility]: [phone] 0 Active Dexcom G6 Transmitter Use as directed. Change every 90 days. Supplied by [facility]: [phone] 0 Active Dexcom G6 Sap Manager Device Use as directed. Supplied by [facility]: [phone] Active Fluticasone Propionate 50 MCG/ACT Nasal [...] Warfarin Sodium 5 MG Oral Tablet (Coumadin)Indicatio ns:manager terminal current use of anticoagulant therapy,Deep vein thrombosis (DVT) (HCC) TAKE ONE TABLET TO ONE AND ONE-HALF TABLET BY MOUTH EVERY DAY DIRECTED BY [facility] 135 Tablet 3 09/13/2023 09/12/19 25 Active Insulin Aspart 100 UNIT/ML Injection Solution (NovoLOG)Indication s:Type 2 diabetes mellitus with foot ulcer, with long-term current use of insulin ([facility]),DM (diabetes mellitus) type II, controlled, with peripheral vascular disorder ([facility]) FOR USE WITH AN INSULIN PUMP, UP TO 310 UNITS DAILY- dose increase 300 mL 11 10/01/2023 Active Insulin Aspart 100 UNIT/ML Injection Solution (NovoLOG)Indication s:Type 2 diabetes mellitus with foot ulcer, with long-term current use of insulin ([facility]) FOR USE WITH AN INSULIN [...] artery disease of n ative artery of [place] heart with stable angina pectoris 12/08/2020 History [...] Per Lipid Taxonomy. Cervical spinal stenosis 08/21/2008 alf current use of anticoagulant therapy 0 05/03/2005 [...] get insulin. She would like to use [facility]. Script sent. Sana Franks, PharmD, [...] PM EST Phone (Outgoing) Graciela Mobley (Self) [phone] (H) Spoke to Patient Pt called and left VM after clinic hours. Returned pt's call regarding not being able to mushroom picker her Novolog today due to medication on backorder as pt was informed by [facility]. Currently on Medtronic 630G insulin pump. Called to confirm pt has enough supply at home. [facility] provided pt 3 vials of Novolog. Requesting return call from [facility] clinic on Sunday to discuss roasterman solution. Pt wondering if she can switch to mail order. Routed message to [facility] pharmacist. Magda Esqueda, PharmD PGY1 Long Distance Operator 09/28/2023 9:03 PM documented in this encounter Plan of Treatment Upcoming Encounters Date Type Department Care Team (Late st Contact Info) Description 10/04/2023 1:30 PM EST Office Visit Pharmacy, [facility] [address] [facility] [place] [address] Pharmacist1, [facility] [address] [facility] [address] 10/18/2023 9:00 AM EDT Office Visit Cardiology, [facility] [address] [place] [address] Nesha Denney CRNP [address] [place] [address] 10/24/2023 2:30 PM EDT [address] [place] [address] 10/24/2023 2:40 PM EDT [facility] Visit [facility] [place] [address] [facility] [address] [facility] [address] [facility] [address] 01/03/2024 1:00 PM EDT Office Visit [facility], [place] [address] [facility] [id number] Natalia Heller PA-C [address] [facility] [address] Scheduled Procedures Name Priority Associated Diagnoses Date/Ti [...] D LEVEL ONCE IN A LIFETIME-USE SMARTSET# 28825 Completed 06/18/2020, 07/25/2019, 05/20/2015, Additional history exists LUNG CANCER SCREENING - USE SMARTSET 03526 Completed 12/22/2022, 12/09/2021, 12/24/2020, Additional history exists [...] this encounter Medical Devices Implanted Type Area Oracle Etl Developer Device Identifier Shelf Expiration Date Model / Serial / Lot Graft Cervical 6x8 [id number] - [id number] Implanted:Qt y: 2 on 08/21/2008 at [facility] [place] Tissue - Human Spine Cervical Lifenet Co [id number] / / Screw Spine 14mm - [id number] Implanted:Qt y: 2 on 08/21/2008 at [facility] [place] N/A: Spine Cervical CARSON [employer] CARSON DEPUY / / Depuy Rumson 14 Mm Sd Con Scr Implanted:Qt y: 2 on 08/21/2008 at [facility] [place] N/A: Spine Cervical CARSON [employer] CARSON DEPUY / / Description:Depuy skyline 14 mm SD con SCR 34 Mm Plate Implanted:Qt y: 1 on 08/21/2008 at [facility] [place] N/A: Spine Cervical / / Description:34 mm Depuy plat e 14 Mm Variable Rescue Implanted:Qt y: 2 on 08/21/2008 at [facility] [place] N/A: Spine Cervical / / Description:14 mm variable r escue Screw 3.5x14 Mntr Fa [id number] - [id number] Implanted:Qt y: 10 on 07/13/2010 at [facility] [place] N/A: Spine Cervical JNJ : [employer] [id number] / / Devaughn [id number] - [id number] Implanted:Qt y: 1 on 07/13/2010 at [facility] [place] N/A: Spine Cervical JNJ : ETH[employer]ON [employer]ATIONS [id number] / / Screw Inner Mntr [id number] - [id number] Implanted:Qt y: 8 on 07/13/2010 at [facility] [place] N/A: Spine Cervical JNJ : [employer]ON [employer]ATIONS [id number] / / Nut Outer Xcon [id number] - [id number] Implanted:Qt y: 2 on 07/13/2010 at [facility] [place] N/A: Spine Cervical JNJ : [employer]ATIONS [id number] / / Screw Inner Xcon [id number] - [id number] Implanted:Qt y: 2 on 07/13/2010 at [facility] [place] N/A: Spine Cervical JNJ : [employer]ATIONS [id number] / / Plate 35mm Xcon [id number] - [id number] Implanted:Qt y: 1 on 07/13/2010 at [facility] [place] N/A: Spine Cervical JNJ : [employer]ATIONS [id number] / / documented as of this encounter [...] the patient have Health Care Power of Director Water And Waste Services? No Full Code 07/13/2010 12:29 PM 07/17/2010 4:03 PM Thi s order reflects the patients wishes and were consensually agreed upon. Question Answer Comments Discussion of Advance Directives occurred with: Not Discussed Does the patient have a Living Will? No Does the patient have Health Care Power of Director Water And Waste Services? No Full Code 01/07/2010 6:23 AM 01/07/2010 2:05 PM This or emi reflects the patients wishes and were consensually agreed upon. Question Answer Comments Discussion of Advance Directives occurred with: Patient/Family Does the patient have a Living Will? No Does the patient have Health Care Power of Director Water And Waste Services? No Full Code 10/15/2009 7:12 AM 10/15/2009 9:26 PM This order reflects the patients wishes and were consensually agreed upon. Care Teams Plastic Surgery Specialist Relationship Specialty Start Date End Date Alfa Jaramillo MD [address] [place] [address] PCP - General 05/06/00 documented as of this encounter
--- OUTSIDE RECORDS SUMMARY | 2023-11-15 18:38 | External Medical Summary ---
Author Name Unknown Address Unknown Organization : Laboratory Report Ordering Provider Test Date Status LETICIA HOOD 09/28/2023 14:40:58 Final Therapeutic ranges for non-o perative patients:
Prophylaxsis/treatment of DVT: (Range:2.0-3.0)
Treatment of pulmonary embolism:(Range:2.0-3.0)
Prevention of systemic embolism from:
-tissue heart valves
-acute myocardial infarction
-valvular heart disease
-atrial fibrillation
(Range: 2.0-3.0)
Mechanical prosthetic valves: (Range: 2.5-3.5) Observation Date Value Abnormality Reference (Units ) Status INR in Capillary blood by Coagulation assay 09/28/2023 14:40:58 3.0 (INR) Final Performing Location
--- OUTSIDE RECORDS SUMMARY | 2023-11-15 18:38 | External Medical Summary | Summary of Care ---
Author Name Unknown Organization [facility] Address [address] [facility] [place] [address] Phone [phone] Care Team Providers Care Billing And Accounting Staff Assistant Name Role Phone Alfa Jaramillo MD Primary Care Provider +1- [phone] Reason for Visit * Reason Onset Date Comments Medication Question 09/28/2023 Encounter Details Date Type Department Care Team (Late st Contact Info) Description 09/28/2023 Telephone Pharmacy Call Center [address] [place] [address] Magda Esqueda, [facility] [address] [facility] [address] Medication Question Allergies Active Allergy Reactions Criticality Noted Date Comments Alendronate Sodium 06/24/2012 Burning sensation and difficulty breathing Proton Pump Inhibitors Hives 02/20/2002 nexium documented as of this encounter (statuses as of 09/29/2023) Medications Medication Sig Dispensed Refills Start Date [...] directed. Change every 10 days. Supplied by [facility]: [phone] 0 Active Dexcom G6 Transmitter Use as directed. Change every 90 days. Supplied by [facility]: [phone] 0 Active Dexcom G6 Hot Car Charger Device Use as directed. Supplied by [facility]: [phone] 0 Active Fluticasone Propionate 50 MCG/ACT Nasal [...] Warfarin Sodium 5 MG Oral Tablet (Coumadin)Indication s:retirement current use of anticoagulant therapy,Deep vein thrombosis [...] dose increase 300 mL 11 09/28/2023 Active documented as of this encounter (statuses as of 09/29/2023) Active Problems Problem Noted Date Diagnosed Date Type 2 diabetes mellitus with foot ulcer (CODE) 09/19/2022 Gastro-esophageal reflux disease without esophag itis 03/27/2022 Major depressive disorder, recurrent, unspecifie d 02/10/2021 DM (diabetes mellitus) type II, controlled, with peripheral vascular disorder 12/08/2020 Coronary artery disease of n ative artery of [place] heart with stable angina pectoris 12/08/2020 History [...] Per Lipid Taxonomy. Cervical spinal stenosis 08/21/2008 retirement current use of anticoagulant therapy 0 05/03/2005 documented as of this encounter (statuses as of 09/29/2023) Resolved Problems Problem Noted Date Diagnosed Date [...] as of this encounter (statuses as of 09/29/2023) Immunizations Name Administration Dates Next Due COVID-19 [...] encounter Miscellaneous Notes * Telephone Encounter - Yanira Kaur RPh - 09/29/2023 6:16 PM EST Agree with plan as documented. Yanira Kaur RPh Clinical Pharmacist 09/29/2023, 6:16 PM * Telephone Encounter - Magda Esqueda RPh - 09/28/2023 8:58 PM EST Contacts Type Contact Phone/Fax 09/28/2023 08:58 PM EST Phone (Outgoing) Graciela Mobley (Self) [phone] (H) Spoke to Patient Pt called and left after clinic hours. Returned pt's call regarding not being able to picker tender her Novolog today due to medication on backorder as pt was informed by [facility]. Currently on Medtronic 630G insulin pump. Called to confirm pt has enough supply at home. [facility] provided pt 3 vials of Novolog. Requesting return call from [facility] clinic on Sunday to discuss senior care solution. Pt wondering if she can switch to mail order. Routed message to [facility] pharmacist. Magda Esqueda PharmD PGY1 Pattern Shop Supervisor 09/28/2023 9:03 PM documented in this encounter Plan of Treatment Upcoming Encounters Date Type Department Care Team (Late st Contact Info) Description 10/04/2023 1:30 PM EST Office Visit Pharmacy, [place] [facility] [place] [address] [place] [address] Pharmacist1, [facility] [address] [place] [address] 10/18/2023 9:00 AM EDT Office Visit Cardiology, [facility] [address] [facility] [place] [address] Nesha Denney CRNP [address] [place] [address] 10/24/2023 2:30 PM EDT [facility]ticoagulation Pharmacy, [place] [address] [address] [facility] [address] [facility] [address] [place] [facility] [place] [address] 10/24/2023 2:40 PM EDT Office Visit Pharmacy, [place] [address] [address] [facility] [address] [facility] [address] [place] [facility] [place] [address] 01/03/2024 1:00 PM EDT Office Visit Family Practice, [place] [address] [place] [facility] [place] [id number] Natalia Heller PA-C [address] [place] [address] Scheduled Procedures Name Priority Associated Diagnoses Date/Ti [...] D LEVEL ONCE IN A LIFETIME-USE SMARTSET# 92908 Completed 06/18/2020, 07/25/2019, 05/20/2015, Additional history exists LUNG CANCER SCREENING - USE SMARTSET 04137 Completed 12/22/2022, 12/09/2021, 12/24/2020, Additional history exists [...] this encounter Medical Devices Implanted Type Area Gas Main Fitter Helper Device Identifier Shelf Expiration Date Model / Serial / Lot Graft Cervical 6x8 [id number] - [id number] Implanted:Qt y: 2 on 08/21/2008 at [place] [facility] [place] Tissue - Human Spine Cervical Lifenet Co [id number] / / Screw Spine 14mm 8-50-014 - [id number] Implanted:Qt y: 2 on 08/21/2008 at [facility] [place] N/A: Spine Cervical CARSON [employer] CARSON DEPUY 1868-50-014 / / Depuy Dunstan 14 Mm Sd Con Scr Implanted:Qt y: 2 on 08/21/2008 at [facility] [place] N/A: Spine Cervical [employer] CAR[employer] DEPUY 1868-60-014 / / Description:Depuy skyline 14 mm SD con SCR 34 Mm Plate Implanted:Qt y: 1 on 08/21/2008 at [facility] [place] N/A: Spine Cervical 1868-02-034 / / Description:34 mm Depuy plat e 14 Mm Variable Rescue Implanted:Qt y: 2 on 08/21/2008 at [facility] N/A: Spine Cervical [id number] / / Description:14 mm variable r escue Screw 3.5x14 Mntr Fa [id number] - [id number] Implanted:Qt y: 10 on 07/13/2010 at [facility] [place] N/A: Spine Cervical JNJ : ETH[employer]ON [employer]ATIONS [id number] / / Devaughn [id number] - [id number] Implanted:Qt y: 1 on 07/13/2010 at [facility] [place] N/A: Spine Cervical JNJ : ETH[employer]ON [employer] [id number] / / Screw Inner Mntr [id number] - [id number] Implanted:Qt y: 8 on 07/13/2010 at [facility] [place] N/A: Spine Cervical JNJ : [employer] [id number] / / Nut Outer Xcon [id number] - [id number] Implanted:Qt y: 2 on 07/13/2010 at [facility] [place] N/A: Spine Cervical JNJ : [employer] [id number] / / Screw Inner Xcon [id number] - [id number] Implanted:Qt y: 2 on 07/13/2010 at [facility] N/A: Spine Cervical JNJ : [employer]ON [employer]IOVATIONS [id number] / / Plate 35mm Xcon [id number] - [id number] Implanted:Qt y: 1 on 07/13/2010 at [facility] N/A: Spine Cervical JNJ : [employer]ON [employer] [id number] / / documented as of this encounter [...] the patient have Health Care Power of Keg Inspector? No Full Code 07/13/2010 12:29 PM 07/17/2010 4:03 PM Thi s order reflects the patients wishes and were consensually agreed upon. Question Answer Comments Discussion of Advance Directives occurred with: Not Discussed Does the patient have a Living Will? No Does the patient have Health Care Power of Keg Inspector? No Full Code 01/07/2010 6:23 AM 01/07/2010 2:05 PM This or emi reflects the patients wishes and were consensually agreed upon. Question Answer Comments Discussion of Advance Directives occurred with: Patient/Family Does the patient have a Living Will? No Does the patient have Health Care Power of Keg Inspector? No Full Code 10/15/2009 7:12 AM 10/15/2009 9:26 PM This order reflects the patients wishes and were consensually agreed upon. Care Teams Billing And Accounting Staff Assistant Relationship Specialty Start Date End Date Alfa Jaramillo MD [address] [facility] [place] [address] PCP - General 05/06/00 documented as of this encounter
--- OUTSIDE RECORDS SUMMARY | 2023-11-15 18:38 | External Medical Summary | Summary of Care ---
Author Name Unknown Organization [facility] Address [address] [facility] [place] [address] Phone [phone] Care Team Providers Care Supervisor Wrapping Room Name Role Phone Alfa Jaramillo MD Primary Care Provider +1- [phone] Reason for Visit * Reason Comments Dosage Adjustment In Person (Anticoag Cl inic) Encounter Details Date Type Department Care Team (Latest Contact Info) Description 09/28/2023 2:30 PM EST Anticoagulation Pharmacy, [place] [address] [place] [address] [facility] [address] [place] [address] History of DVT (deep vein thrombosis)*; Chronic atrial fibrillation (HCC); Anticoagulation management encounter; correction current use of anticoagulant therapy Allergies Active [...] directed. Change every 10 days. Supplied by [employer]: [phone] 0 Active Dexcom G6 Transmitter Use as directed. Change every 90 days. Supplied by [employer]: [phone] Active Dexcom G6 Company Controller Device Use as directed. Supplied by [facility] [employer]: [phone] 0 Active Fluticasone Propionate 50 MCG/ACT Nasal [...] Warfarin Sodium 5 MG Oral Tablet (Coumadin)Indication s:correction current use of anticoagulant therapy,Deep vein thrombosis [...] artery disease of n ative artery of [place] heart with stable angina pectoris 12/08/2020 History [...] Per Lipid Taxonomy. Cervical spinal stenosis 08/21/2008 correction current use of anticoagulant therapy 0 05/03/2005 [...] this encounter Progress Notes * Shanthi Franks RPh - 09/28/2023 2:33 PM EST Medication Therapy Disease Management - Anticoagulation Patient: Graciela Mobley | : 1950 Subjective Patient-Reported Symptoms: Patient Findings Negatives: Signs/symptoms of thrombosis, Signs/symptoms of bleeding, Change in health, Change in alcohol use, Change in activity, Upcoming invasive procedure, Missed doses, Extra doses, Change in medications, Change in diet/appetite, Bruising Objective Current Warfarin Dose As of 09/28/2023 Warfarin maintenance plan: 5 mg (5 mg x 1) every day INR Result As of 09/28/2023 INR goal: 2.0-3.0 INR used for dosin.0 (09/28/2023) Assessment & Plan Warfarin Plan As of 09/28/2023 Full warfarin instructions: 5 mg every day Next INR check: 10/24/2023 Repeat PT/INR in 4 week(s) Weekly dose: not changed Additional Dosing Information: Shanthi Franks [facility] Clinical Pharmacist 09/28/2023, 2:33 PM documented in this encounter Plan of Treatment Upcoming Encounters Date Type Department Care Team (Late st Contact Info) Description 10/04/2023 1:30 PM EST Office Visit Pharmacy, [facility] [address] [facility] [place] [address] Pharmacist1, [facility] [address] [place] [address] 10/18/2023 9:00 AM EDT Office Visit Cardiology, [facility] [address] [place] [address] Nesha Denney CRNP [address] [place] [address] 10/24/2023 2:30 PM EDT Anticoagulation Pharmacy, [place] [address] [place] [facility] [place] [address] [facility] [address] [place] [facility] [address] 10/24/2023 2:40 PM EDT Office Visit Pharmacy, [place] [address] [facility] [address] [facility] [address] [facility] [address] 01/03/2024 1:00 PM EDT Office Visit Family Practice, [place] [address] [facility] [address] Natalia Heller PA-C [address] [facility] [address] Scheduled Procedures Name Priority Associated Diagnoses Date/Ti [...] D LEVEL ONCE IN A LIFETIME-USE SMARTSET# 46127 Completed 06/18/2020, 07/25/2019, 05/20/2015, Additional history exists LUNG CANCER SCREENING - USE SMARTSET 28884 Completed 12/22/2022, 12/09/2021, 12/24/2020, Additional history exists [...] this encounter Medical Devices Implanted Type Area Cup Trimming Machine Operator Device Identifier Shelf Expiration Date Model / Serial / Lot Graft Cervical 6x8 [id number] - [id number] Implanted:Qt y: 2 [place] 08[place]21[place] [facility] - Human Spine Cervical Lif[employer] Co [id number] / / Screw Spine 14mm [id number] - [id number] Implanted:Qt y: 2 on 08/21/2008 [place] [facility]/A: Spine Cervical CARSON [employer] CARSON DEPUY [id number] / / Depuy [place] 14 Mm Sd Con Scr Implanted:Qt y: 2 on 08/21/2008 [place] [facility]/A: Spine Cervical CARSON [employer] CARSON DEPUY 60014 / / Description:Depuy skyline 14 mm SD con SCR 34 Mm Plate Implanted:Qt y: 1 on 08/21/2008 [place] [facility]/A: Spine Cervical / / Description:34 mm Depuy plat e 14 Mm Variable Rescue Implanted:Qt y: 2 on 08/21/2008 [place] [facility]/A: Spine Cervical / / Description:14 mm variable r escue Screw 3.5x14 Mntr Fa [id number] - [id number] Implanted:Qt y: 10 on 07/13/2010 [place] [facility]A: Spine Cervical JNJ : ETHICON CARDIOVATIONS [id number] / / Devaughn [id number] - [id number] Implanted:Qt y: 1 on 07/13/2010 [place] [facility]A: Spine Cervical JNJ : ETHICON CARDIOVATIONS [id number] / / Screw Inner Mntr [id number] - [id number] Implanted:Qt y: 8 on 07/13/2010 [place] [facility]/A: Spine Cervical JNJ : ETHICON CARDIOVATIONS [id number] / / Nut Outer Xcon [id number] - [id number] Implanted:Qt y: 2 on 07/13/2010 [place] [facility]A: Spine Cervical JNJ : ETHICON CARDIOVATIONS [id number] / / Screw Inner Xcon [id number] - [id number] Implanted:Qt y: 2 on 07/13/2010 [place] [facility]/A: Spine Cervical JNJ : ETHICON CARDIOVATIONS [id number] / / Plate 35mm Xcon [id number] - [id number] Implanted:Qt y: 1 on 07/13/2010 [place] [facility]/A: Spine Cervical JNMaddy : ETHICON CARDIOVATIONS [id number] / / documented as of this encounter Procedures Procedure Name Priority Date/Time Associated Diagnosis Comments INR FINGERSTICK, POINT OF CARE STAT 09/28/2023 2:40 PM EST History of DVT (deep vein thrombosis) Chronic atrial fibrillation (HCC) Anticoagulation management encounter correction current use of anticoagulant therapy documented in this encounter Results * INR FINGERSTICK, POINT OF CARE (09/28/2023 2:40 PM EST) Fingerstick INR 3.0 INR 2:43 PM EST [facility] [place] [address]- Blood 09/28/2023 2:40 PM EST 09/28/2023 2:43 PM EST Narrative [facility]- - 09/28/2023 2:43 PM EST Therapeutic ranges for non-operative patients: Prophylaxsis/treatment of DVT: (Range:2.0-3.0) Treatment of pulmonary embolism:(Range:2.0-3.0) Prevention of systemic embolism from: -tissue heart valves -acute myocardial infarction -valvular heart disease -atrial fibrillation (Range: 2.0-3.0) Mechanical prosthetic valves: (Range: 2.5-3.5) Shanthi Franks [facility] LAB POINT OF CARE TEST DOCKED DEVICE UNSOLICITED RESULTS [facility] [address] [place] [address] documented in this encounter Visit Diagnoses Diagnosis History of DVT (deep vein thrombosis)- Primary Personal history of venous thrombosis and embolism Chronic atrial fibrillation (HCC) Atrial fibrillation Anticoagulation management encounter Encounter for therapeutic drug monitoring long term acute care registered nurse current use of anticoagulant therapy documented in this encounter Advance Directives Latest [...] the patient have Health Care Power of Mine Safety Director? No Full Code 07/13/2010 12:29 PM 07/17/2010 4:03 PM Thi s order reflects the patients wishes and were consensually agreed upon. Question Answer Comments Discussion of Advance Directives occurred with: Not Discussed Does the patient have a Living Will? No Does the patient have Health Care Power of Mine Safety Director? No Full Code 01/07/2010 6:23 AM 01/07/2010 2:05 PM This or emi reflects the patients wishes and were consensually agreed upon. Question Answer Comments Discussion of Advance Directives occurred with: Patient/Family Does the patient have a Living Will? No Does the patient have Health Care Power of Mine Safety Director? No Full Code 10/15/2009 7:12 AM 10/15/2009 9:26 PM This order reflects the patients wishes and were consensually agreed upon. Care Teams Supervisor Wrapping Room Relationship Specialty Start Date End Date Alfa Jaramillo MD [address] [place] [address] PCP - General 05/06/00 documented as of this encounter
--- OUTSIDE RECORDS SUMMARY | 2023-11-15 18:38 | External Medical Summary | Summary of Care ---
Author Name Unknown Organization [facility] Address [address] [facility] [place] [address] Phone [phone] Care Team Providers Care Cigarette Tester Name Role Phone Alfa Jaramillo MD Primary Care Provider +1- [phone] Reason for Visit * Reason Onset Date Comments Medication Question 09/28/2023 Encounter Details Date Type Department Care Team (Late st Contact Info) Description 09/28/2023 Telephone Pharmacy Call Center [address] [place] [address] Magda Esqueda, [facility] [address] [place] [address] Medication Question Allergies Active Allergy Reactions Criticality [...] directed. Change every 10 days. Supplied by [employer]: [phone] 0 Active Dexcom G6 Transmitter Use as directed. Change every 90 days. Supplied by [employer]: [phone] 0 Active Dexcom G6 Computer Network Support Specialist Device Use as directed. Supplied by [employer]: [phone] 0 Active Fluticasone Propionate 50 MCG/ACT Nasal [...] artery disease of n ative artery of [place] heart with stable angina pectoris 12/08/2020 History [...] encounter Miscellaneous Notes * Telephone Encounter - Magda Esqueda RPh - 09/28/2023 8:58 PM EST Contacts Type Contact Phone/Fax 09/28/2023 08:58 PM EST Phone (Outgoing) Graciela Mobley (Self) [phone] (H) Spoke to Patient Pt called and left VM after clinic hours. Returned pt's call regarding not being able to slate picker her Novolog today due to medication on backorder as pt was informed by [facility]. Currently on Medtronic 630G insulin pump. Called to confirm pt has enough supply at home. [facility] provided pt 3 vials of Novolog. Requesting return call from [facility] clinic on Sunday to discuss fdc solution. Pt wondering if she can switch to mail order. Routed message to [facility] pharmacist. Magda Esqueda, PharmD PGY1 [employer] 09/28/2023 9:03 PM documented in this encounter Plan of Treatment Upcoming Encounters Date Type Department Care Team (Late st Contact Info) Description 10/04/2023 1:30 PM EST Office Visit Pharmacy, [facility] [address] [facility] [address] [place] [address] Pharmacist1, [facility] [address] [facility] [place] [address] 10/18/2023 9:00 AM EDT Office Visit Cardiology, [facility] [address] [address] Nesha Denney CRNP [address] [place] [address] 10/24/2023 2:30 PM EDT [address]tico[address] Pharmacy, [address] [address] [facility] [address] [facility], [place] [address] 10/24/2023 2:40 PM EDT Office Visit Pharmacy, [place] [address] [facility], [place] [address] [facility] [address] [facility], [place] [address] 01/03/2024 1:00 PM EDT Office Visit Family Practice, [place] [address] [facility], [place] [id number] Natalia Heller PA-C [address] [facility], [place] [address] Scheduled Procedures Name Priority Associated Diagnoses Date/Ti [...] D LEVEL ONCE IN A LIFETIME-USE SMARTSET# 82011 Completed 06/18/2020, 07/25/2019, 05/20/2015, Additional history exists LUNG CANCER SCREENING - USE SMARTSET 52843 Completed 12/22/2022, 12/09/2021, 12/24/2020, Additional history exists [...] this encounter Medical Devices Implanted Type Area Local Bulk Driver Device Identifier Shelf Expiration Date Model / Serial / Lot Graft Cervical 6x8 [id number] - [id number] Implanted:Qt y: 2 on 08/21/2008 at [place] [facility] [place] Tissue - Human Spine Cervical Lif[employer] Co [id number] / / Screw Spine 14mm 50014 - [id number] Implanted:Qt y: 2 on 08/21/2008 at [place] [facility] [place] N/A: Spine Cervical CARSON & CARSON DEPUY 50014 / / Depuy [place] 14 Mm Sd Con Scr Implanted:Qt y: 2 on 08/21/2008 at [place] [facility] N/A: Spine Cervical CARSON & CARSON DEPUY 60014 / / Description:Depuy skyline 14 mm SD con SCR 34 Mm Plate Implanted:Qt y: 1 on 08/21/2008 at [place] [facility] N/A: Spine Cervical / / Description:34 mm Depuy plat e 14 Mm Variable Rescue Implanted:Qt y: 2 on 08/21/2008 at [place] [facility] N/A: Spine Cervical / / Description:14 mm variable r escue Screw 3.5x14 Mntr Fa [id number] - [id number] Implanted:Qt y: 10 on 07/13/2010 at [place] [facility] [place] N/A: Spine Cervical JNJ : ETHICON CARDIOVATIONS [id number] / / Devaughn 3.2f623oc [id number] - [id number] Implanted:Qt y: 1 on 07/13/2010 at [place] [facility] N/A: Spine Cervical JNJ : ETHICON CARDIOVATIONS [id number] / / Screw Inner Mntr [id number] - [id number] Implanted:Qt y: 8 on 07/13/2010 at [place] [facility] N/A: Spine Cervical JNJ : ETHICON CARDIOVATIONS [id number] / / Nut Outer Xcon [id number] - [id number] Implanted:Qt y: 2 on 07/13/2010 at [place] [facility] N/A: Spine Cervical JNJ : ETHICON CARDIOVATIONS [id number] / / Screw Inner Xcon [id number] - [id number] Implanted:Qt y: 2 on 07/13/2010 at [place] [facility] N/A: Spine Cervical JNJ : ETHICON CARDIOVATIONS [id number] / / Plate 35mm Xcon [id number] - [id number] Implanted:Qt y: 1 on 07/13/2010 at [place] [facility] N/A: Spine Cervical JNJ : RAY CARDIOVATIONS [id number] / / documented as of this encounter [...] the patient have Health Care Power of Accountant Property? No Full Code 07/13/2010 12:29 PM 07/17/2010 4:03 PM Thi s order reflects the patients wishes and were consensually agreed upon. Question Answer Comments Discussion of Advance Directives occurred with: Not Discussed Does the patient have a Living Will? No Does the patient have Health Care Power of Accountant Property? No Full Code 01/07/2010 6:23 AM 01/07/2010 2:05 PM This or emi reflects the patients wishes and were consensually agreed upon. Question Answer Comments Discussion of Advance Directives occurred with: Patient/Family Does the patient have a Living Will? No Does the patient have Health Care Power of Accountant Property? No Full Code 10/15/2009 7:12 AM 10/15/2009 9:26 PM This order reflects the patients wishes and were consensually agreed upon. Care Teams Cigarette Tester Relationship Specialty Start Date End Date Alfa Jaramillo MD [address] [place] [address] PCP - General 05/06/00 documented as of this encounter
--- OUTSIDE RECORDS SUMMARY | 2023-11-15 18:39 | External Medical Summary ---
Author Name Unknown Address Unknown Organization : Laboratory Report Ordering Provider Test Date Status ALEJO SIMPSON 09/18/2023 12:40:46 Final Observation Date Value Abnormality Reference (Units ) Status Glucose Point of Care 09/18/2023 12:40:46 276 Above high normal 70-120 (mg/dL) Final Performing Location
--- OUTSIDE RECORDS SUMMARY | 2023-11-15 18:39 | External Medical Summary | Summary of Care ---
Author Name Unknown Organization [facility] Address [address] [facility] [place] [address] Phone [phone] Care Team Providers Care Sole Assessor Name Role Phone Alfa Jaramillo MD Primary Care Provider +1- [phone] Reason for Visit * Reason Onset Date Comments Forms Request 09/06/2023 Encounter Details Date Type Department Care Team (Late st Contact Info) Description 09/06/2023 Telephone [facility] [address] [place] [address] Alfa Jaramillo MD [address] [place] [address] Forms Request Allergies Active Allergy Reactions Criticality Noted Date Comments Alendronate Sodium 06/24/2012 Burning sensation and difficulty breathing Proton Pump Inhibitors Hives 02/20/2002 nexium documented as of this encounter (statuses as of 09/20/2023) Medications Medication Sig Dispensed Refills Start Date [...] directed. Change every 10 days. Supplied by [employer]: [phone] 0 Active Dexcom G6 Transmitter Use as directed. Change every 90 days. Supplied by [employer]: [phone] 0 Active Dexcom G6 Cryptologic Technician Operator/Analyst Device Use as directed. Supplied by [employer]: [phone] 0 Active Fluticasone Propionate 50 MCG/ACT Nasal [...] DAY 180 Tablet 3 11/16/2022 4 Active Insulin Aspart 100 UNIT/ML Injection Solution (NovoLOG)Indications :Type 2 diabetes mellitus with foot ulcer, with long-term current use of insulin (HCC) Use with insulin pump. Up to 315 units per day. 290 mL 1 03/28/2023 Active Ozempic (2 MG/DOSE) 8 MG/3ML Subcutaneous [...] DAY 180 Capsule 1 08/20/2023 4 Active documented as of this encounter (statuses as of 09/20/2023) Active Problems Problem Noted Date Diagnosed Date Type 2 diabetes mellitus with foot ulcer (CODE) 09/19/2022 Gastro-esophageal reflux disease without esophag itis 03/27/2022 Major depressive disorder, recurrent, unspecifie d 02/10/2021 DM (diabetes mellitus) type II, controlled, with peripheral vascular disorder 12/08/2020 Coronary artery disease of n ative artery of [place] heart with stable angina pectoris 12/08/2020 History [...] as of this encounter (statuses as of 09/20/2023) Resolved Problems Problem Noted Date Diagnosed Date [...] as of this encounter (statuses as of 09/20/2023) Immunizations Name Administration Dates Next Due COVID-19 [...] Date Smoking Tobacco: Former Cigarettes 2 36 Q uit: 04/19/2015 Smokeless Tobacco: Never Alcohol Use Standard [...] encounter Miscellaneous Notes * Telephone Encounter - Emilee Blanco LPN - 09/06/2023 2:35 PM EST Form placed on doctor's desk for medtronic's documented in this encounter Plan of Treatment Upcoming Encounters Date Type Department Care Team (Late st Contact Info) Description 09/28/2023 2:30 PM EST Anticoagulation Pharmacy, [place] [address] [facility] [address] [facility] [address] [facility] [address] 09/28/2023 2:40 PM EST Pharmacy Pharmacy, [place] [address] [facility] [address] [facility] [address] [facility] [address] 10/18/2023 9:00 AM EDT Office Visit Cardiology, [facility] [address] [place] [address] Nesha Denney CRNP [address] [place] [address] 01/03/2024 1:00 PM EDT Office Visit Family Practice, [place] [address] [facility] [id number] Natalia Heller PA-C [address] [facility] [address] Health Maintenance Due Date Last Done Comments Alpha-1 Antitrypsin 1968 Hepatitis B (1 of 3 - Risk 3-dose series) 2009 *BISPHONATE OR OTHER ACCEPTABLE MEDICATION NEEDED FOR [...] 02/19/2025 02/19/2023, 02/03, 05/12/2020, Additional history exists COLONOSCOPY-EVERY 2 YRS AGES 18-100 09/18/2025 09/18/2023, 09/18/2023, 11/16/2020, Additional history exists Pneumococcal Vaccine: 65+ Years Completed 01/20/2016, 01/15/2015, 09/18/2006, Additional history exists VITAMIN D LEVEL ONCE IN A LIFETIME-USE SMARTSET# 88118 Completed 06/18/2020, 07/25/2019, 05/20/2015, Additional history exists LUNG CANCER SCREENING - USE SMARTSET 19620 Completed 12/22/2022, 12/09/2021, 12/24/2020, Additional history exists Influenza Vaccine (FLU shot) Completed , 05/08/2022, 06/18/2020, Additional history exists GARDASIL-HPV IMMUNIZATION SERIES Aged Out No longer eligible based on patient's age to complete this topic MENINGOCOCCAL (MENACTRA/MENVEO) Aged Out No longer eligible based on patient's age to complete this topic documented as of this encounter Medical Devices Implanted Type Area Retinal Angiographer Device Identifier Shelf Expiration Date Model / Serial / Lot Graft Cervical 6x8 [id number] - [id number] Implanted:Qt y: 2 on 08/21/2008 [place] [facility] [place] - Human Spine Cervical [employer] [id number] / / 14 Mm Variable Rescue Implanted:Qt y: 2 on 08/21/2008 at [place] [facility] [place] N/A: Spine Cervical [id number] / / Description:14 mm variable r escue Screw 3.5x14 Mntr [id number] - [id number] Implanted:Qt y: 10 on 07/13/2010 at [place] [facility] [place] N/A: Spine Cervical JNJ : ETHICON CARDIOVATIONS [id number] / / documented as of this encounter [...] the patient have Health Care Power of Bracelet Former? No Full Code 07/13/2010 12:29 PM 07/17/2010 4:03 PM Thi s order reflects the patients wishes and were consensually agreed upon. Question Answer Comments Discussion of Advance Directives occurred with: Not Discussed Does the patient have a Living Will? No Does the patient have Health Care Power of Bracelet Former? No Full Code 01/07/2010 6:23 AM 01/07/2010 2:05 PM This or emi reflects the patients wishes and were consensually agreed upon. Question Answer Comments Discussion of Advance Directives occurred with: Patient/Family Does the patient have a Living Will? No Does the patient have Health Care Power of Bracelet Former? No Full Code 10/15/2009 7:12 AM 10/15/2009 9:26 PM This order reflects the patients wishes and were consensually agreed upon. Care Teams Sole Assessor Relationship Specialty Start Date End Date Alfa Jaramillo MD [address] [place] [facility] [address] PCP - General 05/06/00 documented as of this encounter
--- OUTSIDE RECORDS SUMMARY | 2023-11-15 18:39 | External Medical Summary | Summary of Care ---
Author Name Unknown Organization [facility] Address [address] [facility] [place] [address] Phone [phone] Care Team Providers Care Labor Utilization Superintendent Name Role Phone Wayne Spencer MD Primary Care Provider [phone]- [phone] Reason for Visit * Reason Comments Medication Refill Encounter Details Date Type Department Care Team (Late st Contact Info) Description 09/12/2023 Refill [facility] [address] [place] [address] Wayne Spencer MD [address] [place] [address] snf current use of anticoagulant therapy; Deep vein thrombosis (DVT) ([facility]) Allergies Active Allergy Reactions Criticality Noted Date Comments Alendronate Sodium 06/24/2012 Burning sensation and difficulty breathing Proton Pump Inhibitors Hives 02/20/2002 nexium documented as of this encounter (statuses as of 09/13/2023) Medications Medication Sig Dispensed Refills Start Date [...] directed. Change every 10 days. Supplied by [employer]: [phone] 0 Active Dexcom G6 Transmitter Use as directed. Change every 90 days. Supplied by [employer]: [phone] 0 Active Dexcom G6 Membership Correspondent Device Use as directed. Supplied by [employer]: [phone] 0 Active Fluticasone Propionate 50 MCG/ACT Nasal [...] A DAY WITH FOOD 180 Tablet 11/16/2022 12/11/19 24 Active Metoprolol Succinate ER 50 MG Oral Tablet Extended Release 24 Hour (toPROL XL) TAKE ONE TABLET BY MOUTH TWICE A DAY 180 Tablet 11/16/2022 12/11/19 24 Active Insulin Aspart 100 UNIT/ML Injection Solution [...] Warfarin Sodium 5 MG Oral Tablet (Coumadin)Indicatio ns:snf current use of anticoagulant therapy,Deep vein thrombosis (DVT) (HCC) TAKE ONE TABLET TO ONE AND ONE-HALF TABLET BY MOUTH EVERY DAY DIRECTED BY [facility] 135 Tablet 3 09/13/2023 09/12/19 25 Active Warfarin Sodium 5 MG Oral Tablet (Coumadin)Indicatio ns:snf current use of anticoagulant therapy,Deep vein thrombosis (DVT) (HCC) TAKE ONE TABLET TO ONE AND ONE-HALF TABLET BY MOUTH EVERY DAY DIRECTED BY [facility] 135 Tablet 3 08/12/2022 09/12/19 24 Discontinu ed(Refill) documented as of this encounter (statuses as of 09/13/2023) Active Problems Problem Noted Date Diagnosed Date [...] Per Lipid Taxonomy. 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 terminal operator current use of anticoagulant therapy 0 05/03/2005 documented as of this encounter (statuses as of 09/13/2023) Resolved Problems Problem Noted Date Diagnosed Date [...] as of this encounter (statuses as of 09/13/2023) Immunizations Name Administration Dates Next Due COVID-19 [...] encounter Miscellaneous Notes * Telephone Encounter - Ashley Vidal RPh - 09/13/2023 10:34 AM ESTSigned Prescriptions: Disp Refills Warfarin Sodium 5 MG Oral Tablet (Coumadin)135 Ta*3 Sig: TAKE ONE TABLET TO ONE AND ONE-HALF TABLET BY MOUTH EVERY DAY DIRECTED BY COUMADIN CLINICAuthorizing Provider: WAYNE SPENCER User: ASHLEY VIDAL documented in this encounter Plan of Treatment Upcoming Encounters Date Type Department Care Team (Latest Contact Info) Description 09/18/2023 8:30 AM EST Hospital Encounter ENDO [facility], Endoscopy Room [facility] [address] [phone] Anselmo Sung MD [address] [address] 09/18/2023 8:30 AM EST - 09/18/2023 9:00 AM EST Surgery ENDO [facility], Endoscopy Room [facility] [address] [phone] Anselmo Sung MD [address] [place] [place] [address] COLONOSCOPY FLEXIBLE PROXIMAL DIAGNOSTIC 09/28/2023 2:30 PM EST Anticoagulation Pharmacy, [place] [address] [facility] [place] [address] [facility] [address] [place] [address] 09/28/2023 2:40 PM EST Pharmacy Pharmacy, [place] [address] [facility] [place] [address] [facility] [address] [facility] [place] [address] 10/18/2023 9:00 AM EDT Office Visit Cardiology, [facility] [address] [facility] [place] [address] Nesha Denney CRNP [address] [place] [address] 01/03/2024 1:00 PM EDT Office Visit Family [facility], [place] [address] [facility] [place] [id number] Natalia Heller PA-C [address] [place] [address] Scheduled Procedures Name Priority Associated Diagnoses Date/Ti me COLONOSCOPY FLEXIBLE PROXIMAL DIAGNOSTIC Recall Encounter for colonoscopy due to history of adenomatous colonic polyps 09/18/2023 8:30 AM EST Health Maintenance Due Date Last Done Comments [...] 01/18/2021, 0 02/18/2019, 02/19/2018, Additional history exists COLONOSCOPY-EVERY 2 YRS AGES 18-100 11/16/2022 11/16/2020, 11/16/2020, 03/21/2018, Additional history exists COVID-19 Vaccine (2022- season) 2023 05/08/2022, 07/20/2021, 10/13/2020, Additional history exists Albumin/Creatinine Ratio 01/03/2024 023, 09/19/2022, 04/18/2021, Additional history exists HbA1c 02/28/2024 08/30/2023, 06/08, 01/02/2023, Additional history exists O2 ASSESSMENT COMPLETED IN PAST YEAR FOR COPD 05/04/2024 05/04/2023 Mammogram 06/07/2024 06/07/2023, 11/0 08/2021, 06/06/2022, Additional history exists DIG LEVEL FOR MEDICATION MONITORING YEARLY 07/05/2024 07/05/2023, 09/19/2022, 03/20/2022, Additional history exists GFR 08/30/2024 08/30/2023, 06/08, 09/19/2022, Additional history exists DTaP,Tdap,and Td Vaccines (2 - Td or Tdap) 09/15/2024 09/15/2014, 07/15/2008, 02/09/1998 DXA Scan 02/19/2025 02/19/2023, 02/03, 05/12/2020, Additional history exists Pneumococcal Vaccine: 65+ Years Completed 01/20/2016, 01/15/2015, 09/18/2006, Additional history exists VITAMIN D LEVEL ONCE IN A LIFETIME-USE SMARTSET# [id number] Completed 06/18/2020, 07/25/2019, 05/20/2015, Additional history exists LUNG CANCER SCREENING - USE SMARTSET [id number] Completed 12/22/2022, 12/09/2021, 12/24/2020, Additional history exists Influenza Vaccine (FLU shot) Completed , 05/08/2022, 06/18/2020, Additional history exists GARDASIL-HPV IMMUNIZATION SERIES Aged Out No longer eligible based on patient's age to complete this topic MENINGOCOCCAL (MENACTRA/MENVEO) Aged Out No longer eligible based on patient's age to complete this topic documented as of this encounter Medical Devices Implanted Type Area Financial Consultant Device Identifier Shelf Expiration Date Model / Serial / Lot Graft Cervical 6x8 [id number] - [id number] Implanted:Qt y: 2 on 08/21/2008 [place] [facility] [place] - Human Spine Cervical [employer] [id number] / / 14 Mm Variable Rescue Implanted:Qt y: 2 on 08/21/2008 at [place] [facility] [place] N/A: Spine Cervical [id number] / / Description:14 mm variable r escue Screw 3.5x14 Mntr Fa [id number] - [id number] Implanted:Qt y: 10 on 07/13/2010 at [place] [facility] [place]/A: Spine Cervical [place] : [employer] [id number] / / documented as of this encounter Visit Diagnoses Diagnosis 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 No Full Code 07/13/2010 12:29 PM 07/17/2010 4:03 PM Thi s order reflects the patients wishes and were consensually agreed upon. Question Answer Comments Discussion of Advance Directives occurred with: Not Discussed Does the patient have a Living Will? No Does the patient have Health Care Power of Nail Galvanizer? No Full Code 01/07/2010 6:23 AM 01/07/2010 2:05 PM This or emi reflects the patients wishes and were consensually agreed upon. Question Answer Comments Discussion of Advance Directives occurred with: Patient/Family Does the patient have a Living Will? No Does the patient have Health Care Power of Nail Galvanizer? No Full Code 10/15/2009 7:12 AM 10/15/2009 9:26 PM This order reflects the patients wishes and were consensually agreed upon. Care Teams Labor Utilization Superintendent Relationship Specialty Start Date End Date Wayne Spencer MD [address] [place] [address] PCP - General 05/06/00 documented as of this encounter
--- OUTSIDE RECORDS SUMMARY | 2023-11-15 18:39 | External Medical Summary | Summary of Care ---
Author Name Unknown Organization [facility] Address [address] [facility] [place] [address] Phone [phone] Care Team Providers Care Commercial Lines Account Executive Name Role Phone Alfa Jaramillo MD Primary Care Provider [phone] Reason for Visit * Auth/Cert Specialty Diagnoses / Procedures Referred By Roberto t Referred To Contact Diagnoses Encounter for colonoscopy due to history of adenomatous colonic polyps Encounter for colonoscopy due to history of adenomatous colonic polyps [Z12.11, Z86.010] Procedures COLONOSCOPY, DIAGNOSTIC (RECTUM) COLONOSCOPY FLEXIBLE PROXIMAL DIAGNOSTIC Referral ID Status Reason Start Date Expiration Date Visits Re quested Visits Authorized [id number] Encounter Details Date Type Department Care Team (Latest Contact Info) Description 09/18/2023 10:38 AM [facility] - 09/18/2023 1:15 PM [facility] Hospital Encounter ENDO [facility], Endoscopy Room [facility] [address] [place] [phone] Anselmo Sung MD [address] [place] [id number] Colonoscopy Discharge Disposition: Home - Self Care Allergies Active Allergy Reactions Criticality Noted Date Comments Alendronate Sodium 06/24/2012 Burning sensation and difficulty breathing Proton Pump Inhibitors Hives 02/20/2002 nexium documented as of this encounter (statuses as of 09/19/2023) Medications Medication Sig Dispensed Refills Start Date [...] directed. Change every 10 days. Supplied by [facility]: [phone] Active Dexcom G6 Transmitter Use as directed. Change every 90 days. Supplied by [facility]: [phone] Active Dexcom G6 Motel Operator Device Use as directed. Supplied by [facility]: [phone] Active Fluticasone Propionate 50 MCG/ACT Nasal [...] MOUTH TWICE A DAY 180 Tablet 11/16/2022 12/12/19 24 Active Insulin Aspart 100 UNIT/ML Injection [...] Warfarin Sodium 5 MG Oral Tablet (Coumadin)Indicatio ns:alf current use of anticoagulant therapy,Deep vein thrombosis (DVT) (HCC) TAKE ONE TABLET TO ONE AND ONE-HALF TABLET BY MOUTH EVERY DAY DIRECTED BY [facility] 135 Tablet 3 09/13/2023 09/12/19 25 Active Warfarin Sodium 5 MG Oral Tablet (Coumadin)Indicatio ns:alf current use of anticoagulant therapy,Deep vein thrombosis (DVT) (HCC) TAKE ONE TABLET TO ONE AND ONE-HALF TABLET BY MOUTH EVERY DAY DIRECTED BY [facility] 135 Tablet 3 08/12/2022 09/12/19 24 Discontinu ed(Refill) documented as of this encounter (statuses as of 09/19/2023) Active Problems Problem Noted Date Diagnosed Date Type 2 diabetes mellitus with foot ulcer (CODE) 09/19/2022 Gastro-esophageal reflux disease without esophag itis 03/27/2022 Major depressive disorder, recurrent, unspecifie d 02/10/2021 DM (diabetes mellitus) type II, controlled, with peripheral vascular disorder 12/08/2020 Coronary artery disease of n ative artery of [place] heart with stable angina pectoris 12/08/2020 History [...] as of this encounter (statuses as of 09/19/2023) Resolved Problems Problem Noted Date Diagnosed Date [...] as of this encounter (statuses as of 09/19/2023) Immunizations Name Administration Dates Next Due COVID-19 [...] Sign Reading Time Taken Comments Blood Pressure 90/55 09/18/2023 12:51 PM EST Pulse 90 09/18/2023 12:51 PM EST Temperature 36.1 C (97 F) 09/18/2023 12:51 PM EST Respiratory Rate 16 09/18/2023 12:51 PM EST Oxygen Saturation 95% 09/18/2023 12:51 PM EST Inhaled Oxygen Concentration - - Weight 90.7 kg (200 lb) 09/12/2023 12:50 PM EST Height 165.1 cm (5' 5") 09/12/2023 12:50 PM EST Body Mass Index 33.28 09/12/2023 12:50 PM EST documented in this [...] No 05/02/2019 documented as of this encounter H&P Notes * Anselmo Sung MD - 09/18/2023 11:39 AM EST Endoscopy Pre-Procedure Assessment Name: Graciela Mobley Date: 09/18/2023 Time: 11:39 AM Procedure(s): Colonoscopy; with Indication(s) of colon polyp surveillance Endoscopy Pre-Procedure Assessment: Prior to the procedure, the patient is identified. The patient's history, medications and allergieshave been reviewed. The patient is competent. The risks and benefits of the proposed procedure and the planned sedation have been discussed with the patient. All questions have been answered and informed consent for the procedure has been obtained. Prior to Admission medications Medication Sig Last Dose Discont. Warfarin Sodium 5 MG Oral Tablet (Coumadin) TAKE ONE TABLET TO ONE AND ONE-HALF TABLET BY MOUTH EVERY DAY DIRECTED BY [facility] Past Month Pregabalin 150 MG Oral Capsule (Lyrica) TAKE ONE CAPSULE BY MOUTH TWICE A DAY Past Month Digoxin 250 MCG Oral Tablet (Lanoxin) Take 1 Tablet by mouth in the morning. 09/17/2023 Polyethylene Glycol 3350 17 GM/SCOOP Oral Powder (Miralax) Mix 1/2 bottle into each of 2 gatorade 32 oz bottles. Drink according to your colonoscopy instructions. Unknown Sertraline HCl 50 MG Oral Tablet (Zoloft) Take 1.5 Tablets by mouth at bedtime. Past Month Ozempic (2 MG/DOSE) 8 MG/3ML Subcutaneous Solution Pen-injector (Semaglutide (2 MG/DOSE)) Inject under the skin. Obtaining from PAP Past Week Insulin Aspart 100 UNIT/ML Injection Solution (NovoLOG) Use with insulin pump. Up to 315 units per day. 09/18/2023 Isosorbide Mononitrate ER 60 MG Oral Tablet Extended Release 24 Hour (Imdur) TAKE ONE TABLET BY MOUTH EVERY MORNING 09/18/2023 Nitroglycerin 0.3 MG Sublingual Tablet Sublingual (Nitrostat) PLACE 1 TABLET UNDER THE TONGUE EVERY5 MINUTES UP TO 3 DOSES NEEDED FOR CHEST PAIN. IF NO RELIEF CALL 911 OR GO TO ER Past Week metFORMIN HCl 1000 MG Oral Tablet (Glucophage) TAKE ONE TABLET BY MOUTH TWICE A DAY WITH FOOD Past Week Metoprolol Succinate ER 50 MG Oral Tablet Extended Release 24 Hour (toPROL XL) TAKE ONE TABLET BY MOUTH TWICE A DAY 09/18/2023 Pravastatin Sodium 20 MG Oral Tablet (Pravachol) TAKE ONE TABLET BY MOUTH EVERY EVENING Past Week Fluticasone Propionate 50 MCG/ACT Nasal Suspension (Flonase) Administer 2 Sprays into each nostril in the morning. 09/17/2023 Toujeo Max SoloStar 300 UNIT/ML Subcutaneous Solution Pen-injector (Insulin Glargine (2 Unit Dial))Inject 60 Units under the skin in the morning and 60 Units in the evening. Patient uses an insulin pump, but it failed this morning. Will get a new one on Sunday. Past Week B-12-SL 1000 MCG Sublingual Tablet Sublingual (Cyanocobalamin) Place under the tongue 1,000 mcg daily . Past Week traZODone HCl 50 MG Oral Tablet (DESYREL) TAKE 1 TABLET BY MOUTH EVERYDAY AT BEDTIME Past Month Cholecalciferol 25 MCG (1000 UT) Capsule Take 1 Capsule by mouth in the morning. 09/17/2023 Multiple Vitamin (DAILY VALUE MULTIVITAMIN) Tablet Take 1 Tablet by mouth in the morning. 09/17/2023 albuterol (PROAIR HFA) 108 (90 BASE) MCG/ACT inhaler Inhale 2 Puffs by mouth 4 times a day. May substitute proventil or ventolin based on formulary Past Week DexFanDistro G6 Motel Operator Device Use as directed. Supplied by [employer]: [phone] [employer] G6 Sensor Use as directed. Change every 10 days. Supplied by [facility]: [phone] [employer] G6 Transmitter Use as directed. Change every 90 days. Supplied by [facility]: [phone] Calcium Carbonate Antacid 500 MG chewable tablet Take 1 Tablet by mouth in the morning and 1 Tabletbefore bedtime. Patient not taking: Reported on 09/12/2023 Not Taking Glucose Blood (CONTOUR NEXT TEST) STRP Use with insulin pump to test blood sugars 4 times a day. Dx. E10.9 ONETOUCH ULTRA BLUE STRP Use to check blood sugar up to 4 times daily INSULIN SYRINGE-NEEDLE U-100 30G X 1/2" 1 ML MISC Use twice per day with lantus inject, and 3 timesper day for sliding scale B-D ULTRAFINE III (5MM) SHORT PEN MISC use as directed with sliding scale INSULIN SYRINGE 30G X 1/2" 0.5 ML MISC use for injections daily Review of patient's allergies indicates: Allergen Reactions Alendronate Sodium Burning sensation and difficulty breathing Proton Pump Inhibitors Hives nexium Ht 1.651 m (5' 5") | Wt 90.7 kg (200 lb) | LMP 06/06/2001 | BMI 33.28 kg/m | BSA 2.04 m Physical Exam: Mental Status Examination: alert and oriented. Airway Examination: normal oropharyngeal airway and neck mobility. Respiratory Examination: clear to auscultation. CV Examination: normal. ASA Grade: III - A patient with severe systemic disease. Abdomen: negative This patient has undergone a preprocedural evaluation. A determination has been made to proceed with the planned procedure under [facility] procedural guidelines and the [facility] Non-Emergent, Elective Medical Services and Treatment Recommendations (published on 11-11-19). The community and hospital prevalence of COVID-19 has been discussed as well as this patient's specific risks associated with SARS-CoV-19 infection. Based upon the clinical acuity and patient-specific care considerations, this procedure is deemed a Tier II - Intermediate acuity treatment or service with either progression or the threat of progressive disease related to the delay in treatment. Not providing the service has the potential for increasing morbidity or mortality. After reviewing the risks and benefits, the patient is deemed in satisfactory condition to undergo the procedure. The anesthesia plan is to use general anesthesia. Anselmo Sung MD 09/18/2023 documented in this encounter Procedure Notes * Alfa Jaramillo MD - 09/18/2023 12:05 PM ESTAssociated Order(s): COLONOSCOPY [facility] Patient Name: Graciela Mobley Procedure Date: 09/18/2023 12:05 PM Date of : 1950 Admit Type: Outpatient Note Status: Finalized Date of : 1950 Admit Type: Outpatient Age: 73 Room: Endo 2 Gender: Female Note Status: Finalized Procedure: Colonoscopy Indications: High risk colon cancer surveillance: Personal history of colonic polyps, Last colonoscopy: November 2020 Providers: Anselmo Sung MD (Doctor) Referring MD: Alfa Jaramillo MD (Referring MD) Medicines: See the Anesthesia note for documentation of the administered medications Complications: No immediate complications. Procedure: Pre-Anesthesia Assessment: - ASA Grade Assessment: III - A patient with severe systemic disease. - Prior to the procedure, a History and Physical was performed, and patient medication allergies have been reviewed. The patient's tolerance of previous anesthesia has been reviewed. - Respiratory Examination: clear to auscultation. - CV Examination: normal. - The risks and benefits of the procedure and the sedation options and risks were discussed with the patient. All questions were answered and informed consent was obtained. - Patient identification and proposed procedure were verified prior to the procedure by the physician, the nurse and the boat motor mechanic. The procedure was verified in the pre-procedure area in the procedure room. - The medication list for this patient has been reviewed prior to the procedure and has been determined that the patient may proceed with the planned study. Any medication changes made as a result of the findings of this procedure have been discussed with the patient and/or route service representative at the time of discharge from the facility. After I obtained informed consent, the scope was passed under direct vision. All instruments were visually inspected immediately before and after removal from the patient to ensure they are fully intact. Throughout the procedure, the patient's blood pressure, pulse, and oxygen saturations were monitored continuously. The colonoscopy was performed without difficulty. The patient tolerated the procedure well. The quality of the bowel preparation was good. The [employer]-[id number] Colonoscope ([id number]) was introduced through the anus and advanced to the terminal ileum. Findings & Specimens: The perianal and digital rectal examinations were normal. Multiple small and large-mouthed diverticula were found in the sigmoid colon and descending colon. Ten sessile polyps were found in the sigmoid colon, descending colon, transverse colon, ascending colon and cecum. The polyps were 3 to 6 mm in size. These polyps were removed with a cold snare. Resection and retrieval were complete. The mucosa of the ascending colon was atrophic, with decreased haustral markings and effacement of vascular markings. This may be related to chronic mesenteric ischemia, and the ascending colon was biopsied. Hemorrhoids on retroflexion. Recommendation: - Discharge patient to home. Resume coumadin tomorrow. Given comorbidities, would consider dc further CRC surveillance. Anselmo Sung MD 09/18/2023 12:46:43 PM This report has been signed electronically. documented in this encounter Nursing Notes * Ankita Pineda RN - 09/18/2023 1:14 PM EST Patient is alert, pain free, passing flatus and tolerating po fluids prior to discharge. Patient has been visited by Dr. Sung. Patient has received and demonstrates understanding of discharge instructions. Patient is transported via w/c to private auto accompanied by endo staff. * Ankita Pineda RN - 09/18/2023 1:00 PM EST Patient's is at bedside per patient's request. * Ankita Pineda RN - 09/18/2023 12:49 PM EST Patient is tolerating PO fluids. * Joann Delgado RN - 09/18/2023 12:38 PM EST See anesthesia record for medication administered during procedure. Joann Delgado RN Specimen(s) and location(s) verified with physician post procedure 12:38 PM Joann Delgado RN Pre cleaning of scope at the bedside started by assistant professor surgical technology. Pt tolerated her colonoscopy with bx's and polypectomies well. Abdominal pressure used during the procedure to assist with advancement of the scope under the direction of Dr. Sung, pt tolerated this well also. Escorted to the PACU lying quietly on her left side. * Ankita Pineda RN - 09/18/2023 12:37 PM EST Patient transferred to pacu 2 status post Colonoscopy. Patient awake. Denies pain and nausea. Respirations are even and unlabored on room air. Abdomen soft and non distended. Vital signs stable. Report was received from SHAINA. RN at bedside. Call laureano is available to the patient. * Rony Baker RN - 09/18/2023 11:23 AM EST BSG found to be 376. Dr. Zuniga aware, to assess pt. * Rony Baker RN - 09/18/2023 11:09 AM EST The following pt discharge instructions reviewed with pt prior to prodedure: No driving today. No alcohol today. No signing of legal documents. Rest as much as possible today and can return to normal activities tomorrow. No operating any heavy equipment today. Diet as tolerated. Pt verbalized understanding. documented in this encounter Plan of Treatment Upcoming Encounters Date Type Department Care Team (Late st Contact Info) Description 09/28/2023 2:30 PM EST Anticoagulation Pharmacy, [place] [address] [place] [address] [facility] [place] [address] 09/28/2023 2:40 PM EST Pharmacy Pharmacy, [place] [address] [place] [address] [place] [address] [place] [address] 10/18/2023 9:00 AM EDT Office Visit Cardiology, [facility] [address] [facility] [place] [address] Nesha Denney CRNP [address] [place] [phone] 01/03/2024 1:00 PM EDT Office Visit [facility], [place] [address] [facility] [phone] Natalia Heller PA-C [address] [place] [address] Pending Results Name Type Priority Associated Diagnoses Date /Time SURGICAL PATHOLOGY Pathology Routine Encounter for colonoscopy due to history of adenomatous colonic polyps 09/18/2023 12:37 PM EST Scheduled Orders Name Type Priority Associated Diagnoses Orde r Schedule SURGICAL PATHOLOGY Pathology Routine Encounter for colonoscopy due to history of adenomatous colonic polyps Release Upon Ordering for 1 Occurrences starting 09/18/2023, 1 completed Health Maintenance Due Date Last Done Comments [...] 07/20/2021, 10/13/2020, Additional history exists Albumin/Creatinine Ratio 01/03/202401/02/2 023, 09/19/2022, 04/18/2021, Additional history exists HbA1c [...] COLONOSCOPY-EVERY 2 YRS AGES 18-100 09/18/2025 09/18/2023, 11/16/2020, 11/16/2020, Additional history exists Pneumococcal Vaccine: 65+ Years Completed 01/20/2016, 01/15/2015, 09/18/2006, Additional history exists VITAMIN D LEVEL ONCE IN A LIFETIME-USE SMARTSET# [id number] Completed 06/18/2020, 07/25/2019, 05/20/2015, Additional history exists LUNG CANCER SCREENING - USE SMARTSET 00079 Completed 12/22/2022, 12/09/2021, 12/24/2020, Additional history exists Influenza Vaccine (FLU shot) Completed , 05/08/2022, 06/18/2020, Additional history exists GARDASIL-HPV IMMUNIZATION SERIES Aged Out No longer eligible based on patient's age to complete this topic MENINGOCOCCAL (MENACTRA/MENVEO) Aged Out No longer eligible based on patient's age to complete this topic documented as of this encounter Medical Devices Implanted Type Area Flour Worker Device Identifier Shelf Expiration Date Model / Serial / Lot Graft Cervical 6x8 [id number] - [id number] Implanted:Qt y: 2 on 08/21/2008 at [facility] Tissue - Human Spine Cervical [employer] [id number] / / 14 Mm Variable Rescue Implanted:Qt y: 2 on 08/21/2008 at OR [facility] N/A: Spine Cervical [id number] / / Description:14 mm variable r escue Screw 3.5x14 Mntr Fa [id number] - [id number] Implanted:Qt y: 10 on 07/13/2010 at [facility] N/A: Spine Cervical [place] : [employer] [id number] / / documented as of this encounter Procedures Procedure Name Priority Date/Time Associated Diagnosis Comments GLUCOSE METER, POINT OF CARE ALINE 09/18/2023 12:40 PM EST COLONOSCOPY 09/18/2023 12:05 PM EST GLUCOSE METER, POINT OF CARE ALINE 09/18/2023 11:11 AM EST documented in this encounter Results * (ABNORMAL) GLUCOSE METER, POINT OF CARE (09/18/2023 12:40 PM EST) Glucose Meter 276(H) 70 - 120 mg/dL 09/18/2023 12:46 PM EST LAB[facility] [place] 57-00 Blood Whole blood specimen / Unknown 09/18/2023 12:40 PM EST 09/18/2023 12:46 PM EST Anselmo Sung MD LAB POINT OF CA RE TEST DOCKED DEVICE UNSOLICITED RESULTS [facility] [place] 57-[address] [place] [address] * COLONOSCOPY (09/18/2023 12:05 PM EST) 09/18/2023 12:0 5 PM EST Narrative Procedure Note Alfa Jaramillo MD - 09/18/2023 12:05 PM EST [facility] Patient Name: Graciela Mobley Procedure Date: 09/18/2023 12:05 PM Date of : 1950 Admit Type: Outpatient Note Status:Finalized Date of : 1950 Admit Type: Outpatient Age: 73 Room: Endo 2 Gender: Female Note Status: Finalized Procedure: Colonoscopy Indications: High risk colon cancer surveillance: Personalhistory of colonic polyps, Last colonoscopy: November 2020 Providers: Anselmo Sung MD (Doctor) Referring MD: Alfa Jaramillo MD (Referring MD) Medicines: See the Anesthesia note for documentation of theadministered medications Complications: No immediate complications. Procedure: Pre-Anesthesia Assessment: - ASA Grade Assessment: III - A patient with severesystemic disease. - Prior to the procedure, a History and Physicalwas performed, and patient medication allergies have been reviewed. Thepatient's tolerance of previous anesthesia has been reviewed. - Respiratory Examination: clear to auscultation. - CV Examination: normal. - The risks and benefits of the procedure and thesedation options and risks were discussed with the patient. All questions wereanswered and informed consent was obtained. - Patient identification and proposed procedurewere verified prior to the procedure by the physician, the nurse and the boat motor mechanic.The procedure was verified in the pre-procedure area in the procedure room. - The medication list for this patient has beenreviewed prior to the procedure and has been determined that the patient may proceedwith the planned study. Any medication changes made as a result of the findingsof this procedure have been discussed with the patient and/or route service representative atthe time of discharge from the facility. After I obtained informed consent, the scope waspassed under direct vision. All instruments were visually inspected immediatelybefore and after removal from the patient to ensure they are fully intact. Throughout the procedure, the patient's bloodpressure, pulse, and oxygen saturations were monitored continuously. The colonoscopy wasperformed without difficulty. The patient tolerated the procedure well. The qualityof the bowel preparation was good. The [id number] Colonoscope ([id number]) was introducedthrough the anus and advanced to the terminal ileum. Findings & Specimens: The perianal and digital rectal examinations were normal. Multiple small and large-mouthed diverticula were found in thesigmoid colon and descending colon. Ten sessile polyps were found in the sigmoid colon, descending colon,transverse colon, ascending colon and cecum. The polyps were 3 to 6 mm in size. These polyps wereremoved with a cold snare. Resection and retrieval were complete. The mucosa of the ascending colon was atrophic, with decreasedhaustral markings and effacement of vascular markings. This may be related to chronic mesentericischemia, and the ascending colon was biopsied. Hemorrhoids on retroflexion. Recommendation: - Discharge patient to home. Resume coumadintomorrow. Given comorbidities, would consider dc further CRC surveillance. Anselmo Sung MD 09/18/2023 12:46:43 PM This report has been signed electronically. Alfa Jaramillo MD GASTRO LOWER * (ABNORMAL) GLUCOSE METER, POINT OF CARE (09/18/2023 11:11 AM EST) Glucose Meter 376(H) 70 - 120 mg/dL 09/18/2023 11:15 AM EST LAB[facility]AT[facility] [place] 57-00 Blood Whole blood specimen / Unknown 09/18/2023 11:11 AM EST 09/18/2023 11:15 AM EST Anselmo Sung MD LAB POINT OF CA RE TEST DOCKED DEVICE UNSOLICITED RESULTS LABORATORY [facility] [address] [address] [place] [address] documented in this encounter Visit Diagnoses Diagnosis Encounter for colonoscopy due to history of adenomatous colonic polyps Special screening for malignant neoplasms, colon documented in this encounter Administered Medications Inactive Administered Medications - up to 3 most recent administrations Medication Order MAR Action Action Date Dose Rate Site insulin aspart (NovoLOG) inj 15 Units 15 Units, Intravenous, ONCE, 1 dose, On Sun09/18/23 at 1230 Given 09/18/2023 11:54 AM EST 15 Units isolyte-S pH 7.4 infusion Intravenous, at 100 mL/hr, Plasma-LYTE 148, isolyte-S, and isolyte-S pH 7.4 are considered equivalent - including for MAR barcode scanning., CONTINUOUS, Starting on Sun09/18/23 at 1130, Until Sun09/18/23 at 1716, Pre-Op Continue from Pre-Op 09/18/2023 11:59 AM EST 100 mL/hr New Bag 09/18/2023 11:54 AM EST 100 mL/hr documented in this encounter Active and Recently Administered Medications Times are shown in EST. Scheduled Medication Order 09/16/2023 09/17/2023 09/18/2023 insulin aspart (NovoLOG) inj 15 Units (COMPLETED) 15 Units, Intravenous, ONCE, 1 dose, On Sun09/18/23 at 1230 1154 (Given - Provid er: Peggy Valles RN) Continuous Medication Order 09/16/2023 09/17/2023 09/18/2023 isolyte-S pH 7.4 infusion Intravenous, at 100 mL/hr, Plasma-LYTE 148, isolyte-S, and isolyte-S pH 7.4 are considered equivalent - including for MAR barcode scanning., CONTINUOUS, Starting on Sun09/18/23 at 1130, Until Sun09/18/23 at 1716, Pre-Op 1154 (New Bag - Prov ider: Peggy Valles RN)1159 (Continue from Pre-Op - Provider: Nanda Long CRNA)1239 (Anes Intra-Op Fluid - Provider: Nanda Long CRNA) documented in this encounter Advance Directives Latest [...] the patient have Health Care Power of Radio News Anchor? No Full Code 07/13/2010 12:29 PM 07/17/2010 4:03 PM Thi s order reflects the patients wishes and were consensually agreed upon. Question Answer Comments Discussion of Advance Directives occurred with: Not Discussed Does the patient have a Living Will? No Does the patient have Health Care Power of Radio News Anchor? No Full Code 01/07/2010 6:23 AM 01/07/2010 2:05 PM This or emi reflects the patients wishes and were consensually agreed upon. Question Answer Comments Discussion of Advance Directives occurred with: Patient/Family Does the patient have a Living Will? No Does the patient have Health Care Power of Radio News Anchor? No Full Code 10/15/2009 7:12 AM 10/15/2009 9:26 PM This order reflects the patients wishes and were consensually agreed upon. Care Teams Commercial Lines Account Executive Relationship Specialty Start Date End Date Alfa Jaramillo MD [address] [place] [address] PCP - General 05/06/00 documented as of this encounter
--- OUTSIDE RECORDS SUMMARY | 2023-11-15 18:39 | External Medical Summary ---
Author Name Unknown Address Unknown Organization : Laboratory Report Ordering Provider Test Date Status ALEJO SIMPSON 09/18/2023 11:11:21 Final Observation Date Value Abnormality Reference (Units ) Status Glucose Point of Care 09/18/2023 11:11:21 376 Above high normal 70-120 (mg/dL) Final Performing Location
--- OUTSIDE RECORDS SUMMARY | 2023-11-15 18:39 | External Medical Summary | Summary of Care ---
Author Name Unknown Organization [facility] Address [address] [facility] [place] [address] Phone [phone] Care Team Providers Care Vice President Of Customer Service Name Role Phone Wayne Spencer MD Primary Care Provider +1- [phone] Reason for Visit * Reason Comments eRx-Medication Refill Encounter Details Date Type Department Care Team (Late st Contact Info) Description 09/22/2023 Refill [place] [address] [place] [address] Wayne Spencer MD [address] [place] [address] Type 2 diabetes mellitus with foot ulcer, with long-term current use of insulin (HCC) Allergies Active Allergy Reactions Criticality Noted Date Comments Alendronate Sodium 06/24/2012 Burning sensation and difficulty breathing Proton Pump Inhibitors Hives 02/20/2002 nexium documented as of this encounter (statuses as of 09/23/2023) Medications Medication Sig Dispensed Refills Start Date [...] on formulary 1 Inhaler 1 8 Active Glucose Blood (CONTOUR NEXT TEST) STRP [...] directed. Change every 10 days. Supplied by [employer]: [phone] 0 Active Dexcom G6 Transmitter Use as directed. Change every 90 days. Supplied by [employer]: [phone] 0 Active Dexcom G6 Pole Classifier Device Use as directed. Supplied by [facility]: [phone] 0 Active Fluticasone Propionate 50 MCG/ACT Nasal [...] 100 Tablet 11 3 11/29/19 24 Active Pravastatin Sodium 20 MG Oral Tablet (Pravachol) TAKE ONE TABLET BY MOUTH EVERY EVENING 90 Tablet 3 3 12/15/19 24 Active metFORMIN HCl 1000 MG [...] TWICE A DAY 180 Capsule 1 4 07/16/20 24 Active Warfarin Sodium 5 MG Oral Tablet (Coumadin)Indicatio ns:half-way current use of anticoagulant therapy,Deep vein thrombosis (DVT) (HCC) TAKE ONE TABLET TO ONE AND ONE-HALF TABLET BY MOUTH EVERY DAY DIRECTED BY [facility] 135 Tablet 3 4 09/12/19 25 Active Insulin Aspart 100 UNIT/ML Injection Solution (NovoLOG)Indication s:Type 2 diabetes mellitus with foot ulcer, with long-term current use of insulin ([facility]) FOR USE WITH AN INSULIN PUMP, UP TO 300 UNITS DAILY 270 mL 0 4 Active Insulin Aspart 100 UNIT/ML Injection Solution (NovoLOG)Indication s:Type 2 diabetes mellitus with foot ulcer, with long-term current use of insulin ([facility]) Use with insulin pump. Up to 315 units per day. 290 mL 1 3 09/23/19 24 Discontinued documented as of this encounter (statuses as of 09/23/2023) Active Problems Problem Noted Date Diagnosed Date Type 2 diabetes mellitus with foot ulcer (CODE) 09/19/2022 Gastro-esophageal reflux disease without esophag itis 03/27/2022 Major depressive disorder, recurrent, unspecifie d 02/10/2021 DM (diabetes mellitus) type II, controlled, with peripheral vascular disorder 12/08/2020 Coronary artery disease of n ative artery of [place] heart with stable angina pectoris 12/08/2020 History [...] as of this encounter (statuses as of 09/23/2023) Resolved Problems Problem Noted Date Diagnosed Date [...] as of this encounter (statuses as of 09/23/2023) Immunizations Name Administration Dates Next Due COVID-19 [...] encounter Miscellaneous Notes * Telephone Encounter - Justin Cano RPh - 09/23/2023 7:43 PM ESTSigned Prescriptions: Disp Refills Insulin Aspart 100 UNIT/ML Injection Solut*270 mL 0 Sig: FOR USEWITH AN INSULIN PUMP, UP TO 300 UNITS DAILYAuthorizing Provider: WAYNE SPENCER User: JUSTIN CANO * Telephone Encounter - Justin Cano RPh - 09/23/2023 7:41 PM EST RX authorized. Zero refills given until upcoming MTM visit. Thank you, Justin Cano, PharmD Clinical Pharmacist [facility] ([facility]) 09/23/23 7:43 PM [phone] documented in this encounter Plan of Treatment Upcoming Encounters Date Type Department Care Team (Late st Contact Info) Description 09/28/2023 2:30 PM EST [facility]ly [facility], [address] [address] [facility] [address] [facility] [address] 09/28/2023 2:40 PM EST Pharmacy Pharmacy, [place] [address] [facility] [address] [facility] [address] [place] [facility] [place] [address] 10/18/2023 9:00 AM EDT Office Visit Cardiology, [facility] [address] [place] [address] Nesha Denney CRNP [address] [place] [address] 01/03/2024 1:00 PM EDT Office Visit Family Practice, [place] [address] [facility] [address] Natalia eHller PA-C [address] [facility] [place] [address] Health Maintenance Due Date Last Done Comments Alpha-1 Antitrypsin 1967 *BISPHONATE OR OTHER ACCEPTABLE MEDICATION NEEDED FOR [...] D LEVEL ONCE IN A LIFETIME-USE SMARTSET# 66465 Completed 06/18/2020, 07/25/2019, 05/20/2015, Additional history exists LUNG CANCER SCREENING - USE SMARTSET 70753 Completed 12/22/2022, 12/09/2021, 12/24/2020, Additional history exists [...] this encounter Medical Devices Implanted Type Area Sprigger Device Identifier Shelf Expiration Date Model / Serial / Lot Graft Cervical 6x8 [id number] - [id number] [place]ed:Qt y: 2 [place] [facility] [place] - Human Spine Cervical [employer] [id number] / / Screw Spine 14mm [id number] - [id number] Implanted:Qt y: 2 on 08[place]21/2008 [place] [facility] [place]/A: Spine Cervical [employer] CARSON DEPUY 50014 / / Depuy [place] 14 Mm Sd Con Scr Implanted:Qt y: 2 on 08[place]21/2008 [place] [facility] [place]A: Spine Cervical [employer] CAR[employer] DEPUY 60014 / / Description:Depuy skyline 14 mm SD con SCR 34 Mm Plate Implanted:Qt y: 1 on 08[place]21/2008 [place] [facility] [place]/A: Spine Cervical / / Description:34 mm Depuy plat e 14 Mm Variable Rescue Implanted:Qt y: 2 on 08/21/2008 [place] [facility] [place]/A: Spine Cervical / / Description:14 mm variable r escue Screw 3.5x14 Mntr Fa [id number] - [id number] Implanted:Qt y: 10 on 07[place]13[place] [facility] [place]A: Spine Cervical JNJ : [employer] [id number] / / Devaughn [id number] - [id number] Implanted:Qt y: 1 [place] 07[place]13[place] [facility] [place]: Spine Cervical JNJ : [employer] [id number] / / Screw Inner Mntr [id number] - [id number] Implanted:Qt y: 8 on 07[place]13/2010 [place] [facility] [place]A: Spine Cervical JNJ : [employer] [id number] / / Nut Outer Xcon [id number] - [id number] Implanted:Qt y: 2 on 07[place]13/2010 [place] [facility] [place]A: Spine Cervical JNJ : [employer] [id number] / / Screw Inner Xcon [id number] - [id number] Implanted:Qt y: 2 on 07[place]13/2010 [place] [facility] [place]A: Spine Cervical JNJ : [employer] [id number] / / Plate 35mm Xcon [id number] - [id number] Implanted:Qt y: 1 on 07[place]13[place]2010 [place] [facility] [place]A: Spine Cervical JNJ : ETHIATIF CARDIOVATIONS [id number] / / documented as of this encounter Visit Diagnoses Diagnosis Type 2 diabetes mellitus with foot ulcer, with long-term current use of insulin (HCC) documented in this encounter Advance Directives [...] patient have Health Care Power of Computer Repairer? No Full Code 07/13/2010 12:29 PM 07/17/2010 4:03 PM Thi s order reflects the patients wishes and were consensually agreed upon. Question Answer Comments Discussion of Advance Directives occurred with: Not Discussed Does the patient have a Living Will? No Does the patient have Health Care Power of Computer Repairer? No Full Code 01/07/2010 6:23 AM 01/07/2010 2:05 PM This or emi reflects the patients wishes and were consensually agreed upon. Question Answer Comments Discussion of Advance Directives occurred with: Patient/Family Does the patient have a Living Will? No Does the patient have Health Care Power of Computer Repairer? No Full Code 10/15/2009 7:12 AM 10/15/2009 9:26 PM This order reflects the patients wishes and were consensually agreed upon. Care Teams Vice President Of Customer Service Relationship Specialty Start Date End Date Wayne Spencer MD [address] [place] [address] PCP - General 05/06/00 documented as of this encounter
--- OUTSIDE RECORDS SUMMARY | 2023-11-15 18:39 | External Medical Summary | Summary of Care ---
Author Name Unknown Organization [facility] Address [address] [facility] [place] [address] Phone [phone] Care Team Providers Care Interpreter And Translator Name Role Phone Alfa Jaramillo MD Primary Care Provider +1- [phone] Encounter Details Date Type Department Care Team (Late st Contact Info) Description 09/18/2023 Population Health External Data Unspecified Department Allergies Active Allergy Reactions Criticality Noted Date Comments Alendronate Sodium 06/24/2012 Burning sensation and difficulty breathing Proton Pump Inhibitors Hives 02/20/2002 nexium documented as of this encounter (statuses as of 09/18/2023) Medications Medication Sig Dispensed Refills Start Date [...] directed. Change every 10 days. Supplied by [facility]: [phone] 0 Active Dexcom G6 Transmitter Use as directed. Change every 90 days. Supplied by [facility]: [phone] 0 Active Dexcom G6 Manager Credit Risk Device Use as directed. Supplied by [facility]: [phone] 0 Active Fluticasone Propionate 50 MCG/ACT Nasal [...] 911 OR GO TO ER 100 Tablet 11/29/2022 4 Active Pravastatin Sodium 20 MG Oral Tablet (Pravachol) TAKE ONE TABLET BY MOUTH EVERY EVENING 90 Tablet 3 11/16/2022 4 Active metFORMIN HCl 1000 MG Oral Tablet (Glucophage)Indicati ons:DM type 1 causing neurological disease, not at goal ([facility]) TAKE ONE TABLET BY MOUTH TWICE A DAY WITH FOOD 180 Tablet 11/16/2022 4 Active Metoprolol Succinate ER 50 MG Oral Tablet Extended Release 24 Hour (toPROL XL) TAKE ONE TABLET BY MOUTH TWICE A DAY 180 Tablet 11/16/2022 4 Active Insulin Aspart 100 UNIT/ML Injection Solution (NovoLOG)Indications :Type 2 diabetes mellitus with foot ulcer, with long-term current use of insulin ([facility]) Use with insulin pump. Up to 315 [...] Warfarin Sodium 5 MG Oral Tablet (Coumadin)Indication s:assisted current use of anticoagulant therapy,Deep vein thrombosis (DVT) ([facility]) TAKE ONE TABLET TO ONE AND ONE-HALF TABLET BY MOUTH EVERY DAY DIRECTED BY [facility] 135 Tablet 3 09/13/2023 Active documented as of this encounter (statuses as of 09/18/2023) Active Problems Problem Noted Date Diagnosed Date Type 2 diabetes mellitus with foot ulcer (CODE) 09/19/2022 Gastro-esophageal reflux disease without esophag itis 03/27/2022 Major depressive disorder, recurrent, unspecifie d 02/10/2021 DM (diabetes mellitus) type II, controlled, with peripheral vascular disorder 12/08/2020 Coronary artery disease of n ative artery of [place] heart with stable angina pectoris 12/08/2020 History [...] as of this encounter (statuses as of 09/18/2023) Resolved Problems Problem Noted Date Diagnosed Date [...] as of this encounter (statuses as of 09/18/2023) Immunizations Name Administration Dates Next Due COVID-19 [...] Description 09/28/2023 2:30 PM EST [facility], [place] [address] [facility] [address] [facility] [address] [place] [address] 09/28/2023 2:40 PM EST Pharmacy Pharmacy, [place] [address] [facility] [address] [facility] [address] [place] [address] 10/18/2023 9:00 AM EDT Office Visit [facility]iology[facility] [place] [address] Nesha Denney CRNP [address] [place] [address] 01/03/2024 1:00 PM EDT Office Visit Family Practice, [place] [address] [facility] [id number] Natalia Heller PA-C [address] [place] [facility] [place] [address] Scheduled Procedures Name Priority Associated Diagnoses Date/Ti me COLONOSCOPY FLEXIBLE PROXIMAL DIAGNOSTIC Recall Encounter for colonoscopy due to history of adenomatous colonic polyps 09/18/2023 11:45 AM EST Health Maintenance Due Date Last [...] 11/16/2020, 03/21/2018, Additional history exists COVID-19 Vaccine (2022-24 season) 2023 05/08/2022, 07/20/2021, 10/13/2020, Additional history exists Albumin/Creatinine Ratio 01/03/2024 023, 09/19/2022, 04/18/2021, Additional history exists HbA1c 02/28/2024 08/30/2023, 06/08, 01/02/2023, Additional history exists O2 ASSESSMENT COMPLETED IN PAST YEAR FOR COPD 05/04/2024 05/04/2023 Mammogram 06/07/2024 06/07/2023, 08/2021, 06/06/2022, Additional history [...] D LEVEL ONCE IN A LIFETIME-USE SMARTSET# 24532 Completed 06/18/2020, 07/25/2019, 05/20/2015, Additional history exists LUNG CANCER SCREENING - USE SMARTSET 83791 Completed 12/22/2022, 12/09/2021, 12/24/2020, Additional history exists Influenza Vaccine (FLU shot) Completed , 05/08/2022, 06/18/2020, Additional history exists GARDASIL-HPV IMMUNIZATION SERIES Aged Out No longer eligible based on patient's age to complete this topic MENINGOCOCCAL (MENACTRA/MENVEO) Aged Out No longer eligible based on patient's age to complete this topic documented as of this encounter Medical Devices Implanted Type Area Adding Machine Mechanic Device Identifier Shelf Expiration Date Model / Serial / Lot Graft Cervical 6x8 [id number] - [id number] Implanted:Qt y: 2 on 08/21/2008 at [place] [facility] [place] Tissue - Human Spine Cervical Lif[employer] Co [id number] / / 14 Mm Variable Rescue Implanted:Qt y: 2 on 08/21/2008 at [place] [facility] [place] N/A: Spine Cervical [id number] / / Description:14 mm variable r escue Screw 3.5x14 Mntr Fa [id number] - [id number] Implanted:Qt y: 10 on 07/13/2010 at [place] [facility] [place] N/A: Spine Cervical JNJ : ETH[employer]ON [employer] [id number] / / documented as of this encounter [...] the patient have Health Care Power of Learning Consultant? No Full Code 07/13/2010 12:29 PM 07/17/2010 4:03 PM Thi s order reflects the patients wishes and were consensually agreed upon. Question Answer Comments Discussion of Advance Directives occurred with: Not Discussed Does the patient have a Living Will? No Does the patient have Health Care Power of Learning Consultant? No Full Code 01/07/2010 6:23 AM 01/07/2010 2:05 PM This or emi reflects the patients wishes and were consensually agreed upon. Question Answer Comments Discussion of Advance Directives occurred with: Patient/Family Does the patient have a Living Will? No Does the patient have Health Care Power of Learning Consultant? No Full Code 10/15/2009 7:12 AM 10/15/2009 9:26 PM This order reflects the patients wishes and were consensually agreed upon. Care Teams Interpreter And Translator Relationship Specialty Start Date End Date Alfa Jaramillo MD [address] [facility] [place] [address] PCP - General 05/06/00 documented as of this encounter
--- OUTSIDE RECORDS SUMMARY | 2023-11-15 18:40 | External Medical Summary | Summary of Care ---
Author Name Unknown Organization [facility] Address [address] [facility] [place] [address] Phone [phone] Care Team Providers Care Web Pressman Name Role Phone Alfa Jaramillo MD Primary Care Provider +1- [phone] Encounter Details Date Type Department Care Team (Late st Contact Info) Description 08/17/2023 Telephone [facility] [address] [place] [address] Alfa Jaramillo MD [address] [place] [address] Allergies Active Allergy Reactions Criticality Noted Date Comments Alendronate Sodium 06/24/2012 Burning sensation and difficulty breathing Proton Pump Inhibitors Hives 02/20/2002 nexium documented as of this encounter (statuses as of 08/17/2023) Medications Medication Sig Dispensed Refills Start Date [...] on formulary 1 Inhaler 1 04/18/2018 Active Additional Information Patient not taking.Reported on [...] directed. Change every 10 days. Supplied by [facility]: [phone] 0 Active Dexcom G6 Transmitter Use as directed. Change every 90 days. Supplied by [employer]: [phone] 0 Active Dexcom G6 Slusher Operator Device Use as directed. Supplied by [employer]: [phone] 0 Active Fluticasone Propionate 50 MCG/ACT Nasal Suspension (Flonase)Indication s:Chronic rhinitis Administer 2 Sprays into each nostril in the morning. 16 g 1 11/01/2022 Active Isosorbide Mononitrate ER 60 MG Oral Tablet Extended Release 24 Hour (Imdur) TAKE ONE TABLET BY MOUTH EVERY MORNING 90 Tablet 3 12/29/2022 12/29/2023 Active Nitroglycerin 0.3 MG Sublingual Tablet Sublingual (Nitrostat) PLACE 1 TABLET UNDER THE TONGUE EVERY 5 MINUTES UP TO 3 DOSES NEEDED FOR CHEST PAIN. 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) TAKE ONE TABLET BY MOUTH TWICE A DAY WITH FOOD 180 Tablet 3 11/16/2022 11/16/2023 Active Metoprolol Succinate ER 50 MG Oral Tablet Extended Release 24 Hour (toPROL XL) TAKE ONE TABLET BY MOUTH TWICE A DAY 180 Tablet 3 11/16/2022 11/16/2023 Active Warfarin Sodium 5 MG Oral Tablet (Coumadin)Indicatio ns: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 90 Tablet 5 05/04/2023 Active documented as of this encounter (statuses as of 08/17/2023) Active Problems Problem Noted Date Diagnosed Date Type 2 diabetes mellitus with foot ulcer (CODE) 09/19/2022 Gastro-esophageal reflux disease without esophag itis 03/27/2022 Major depressive disorder, recurrent, unspecifie d 02/10/2021 DM (diabetes mellitus) type II, controlled, with peripheral vascular disorder 12/08/2020 Coronary artery disease of n ative artery of [place] heart with stable angina pectoris 12/08/2020 History [...] as of this encounter (statuses as of 08/17/2023) Resolved Problems Problem Noted Date Diagnosed Date [...] as of this encounter (statuses as of 08/17/2023) Immunizations Name Administration Dates Next Due COVID-19 [...] Telephone Encounter - Lisa Goldman OSA - 08/17/2023 12:03 PM EST This has been changed. * Telephone Encounter - Yoly Kramer LPN - 08/17/2023 11:57 AM EST Spoke to pt to advise Ozempic s available at office for pickup. Pt advised that phone # has changed, it is now [phone] please change in chart documented in this encounter Plan of Treatment Upcoming Encounters Date Type Department Care Team (Latest Contact Info) Description 08/31/2023 10:00 AM EST Anticoagulation Pharm[facility], [place] [address] [facility] [address] [facility] [address] [facility] [address] 09/18/2023 8:30 AM EST Hospital Encounter ENDO [facility], Endoscopy Room [facility] [address] [place] [address] Anselmo uSng MD [address] [place] [address] 09/18/2023 8:30 AM EST - 09/18/2023 9:00 AM EST Surgery ENDO [facility], Endoscopy Room [facility] [address] [place] [phone] Anselmo uSng MD [address] [place] [address] COLONOSCOPY FLEXIBLE PROXIMAL DIAGNOSTIC 09/28/2023 2:30 PM EST Anticoagulation Pharmacy, [place] [address] [facility] [address] [facility] [address] [facility] [address] 09/28/2023 2:40 PM EST Pharmacy Pharmacy, [place] [address] [facility] [address] [facility] [address] [facility] [address] 10/18/2023 9:00 AM EDT Office Visit Cardiology, [facility] [address] [place] [address] Nesha Denney CRNP [address] [place] [address] 01/03/2024 1:00 PM EDT [facility] Visit [facility], [place] [address] [facility] [place] [phone] Natalia Heller PA-C [address] [facility] [address] Scheduled Procedures Name Priority Associated Diagnoses Date/Ti [...] 023, 09/19/2022, 04/18/2021, Additional history exists HbA1c 01/03/2024 07/05/2023, 12/06, 09/19/2022, Additional history exists O2 ASSESSMENT COMPLETED IN PAST YEAR FOR COPD 05/04/2024 05/04/2023 Mammogram 06/07/2024 06/07/2023, 08/2021, 05/26/2021, Additional history exists DIG LEVEL FOR MEDICATION MONITORING YEARLY 07/05/2024 07/05/2023, 09/19/2022, 03/20/2022, Additional history exists GFR 07/05/2024 07/05/2023, 09/06, 03/20/2022, Additional history exists DTaP,Tdap,and Td Vaccines (2 - Td or Tdap) 09/15/2024 09/15/2014, 07/15/2008, 02/09/1998 DXA Scan 02/19/2025 02/19/2023, 02/2020, 11/02/2017, Additional history exists Pneumococcal Vaccine: 65+ Years Completed 01/20/2016, 01/15/2015, 09/18/2006, Additional history exists VITAMIN D LEVEL ONCE IN A LIFETIME-USE SMARTSET# [id number] Completed 06/18/2020, 07/25/2019, 05/20/2015, Additional history exists LUNG CANCER SCREENING - USE SMARTSET 60070 Completed 12/22/2022, 12/09/2021, 12/24/2020, Additional history exists Influenza Vaccine (FLU shot) Completed , 05/08/2022, 06/18/2020, Additional history exists GARDASIL-HPV IMMUNIZATION SERIES Aged Out No longer eligible based on patient's age to complete this topic MENINGOCOCCAL (MENACTRA/MENVEO) Aged Out No longer eligible based on patient's age to complete this topic documented as of this encounter Medical Devices Implanted Type Area Deputy County Attorney Device Identifier Shelf Expiration Date Model / Serial / Lot Graft Cervical 6x8 [id number] - [id number] Implanted:Qt y: 2 on 08/21/2008 at [place] [facility] [place] Tissue - Human Spine Cervical Lif[employer] [id number] / / 14 Mm Variable Rescue Implanted:Qt y: 2 on 08/21/2008 at [place] [facility] [place] N/A: Spine Cervical [id number] / / Description:14 mm variable r escue Screw 3.5x14 Mntr Fa [id number] - [id number] Implanted:Qt y: 10 on 07/13/2010 at [place] [facility] [place] N/A: Spine Cervical JNJ : ETH[employer]ON [employer] [id number] / / documented as of this encounter [...] the patient have Health Care Power of Thermostat Machine Tender? No Full Code 07/13/2010 12:29 PM 07/17/2010 4:03 PM Thi s order reflects the patients wishes and were consensually agreed upon. Question Answer Comments Discussion of Advance Directives occurred with: Not Discussed Does the patient have a Living Will? No Does the patient have Health Care Power of Thermostat Machine Tender? No Full Code 01/07/2010 6:23 AM 01/07/2010 2:05 PM This or emi reflects the patients wishes and were consensually agreed upon. Question Answer Comments Discussion of Advance Directives occurred with: Patient/Family Does the patient have a Living Will? No Does the patient have Health Care Power of Thermostat Machine Tender? No Full Code 10/15/2009 7:12 AM 10/15/2009 9:26 PM This order reflects the patients wishes and were consensually agreed upon. Care Teams Web Pressman Relationship Specialty Start Date End Date Alfa Jaramillo MD [address] [facility] [place] [id number] PCP - General 05/06/00 documented as of this encounter
--- OUTSIDE RECORDS SUMMARY | 2023-11-15 18:40 | External Medical Summary | Summary of Care ---
Author Name Unknown Organization [facility] Address [address] [place] [address] Phone [phone] Care Team Providers Care Worship Leader Name Role Phone Alfa Jaramillo MD Primary Care Provider +1- [phone] Reason for Visit * Reason Comments Outpatient Testing Encounter Details Date Type Department Care Team (Late st Contact Info) Description 08/30/2023 10:10 AM EST Laboratory Laboratory, [place] [address] [place] [address] [place] [address] [place] [address] Type 2 diabetes mellitus with foot ulcer, with long-term current use of insulin (HCC) Allergies Active Allergy Reactions Criticality Noted Date Comments Alendronate Sodium 06/24/2012 Burning sensation and difficulty breathing Proton Pump Inhibitors Hives 02/20/2002 nexium documented as of this encounter (statuses as of 08/30/2023) Medications Medication Sig Dispensed Refills Start Date [...] directed. Change every 10 days. Supplied by [employer]: [phone] 0 Active Dexcom G6 Transmitter Use as directed. Change every 90 days. Supplied by [employer]: [phone] 0 [address] Dexcom G6 Street Light Servicer Device Use as directed. 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 Up to 315 [...] as of this encounter (statuses as of 08/30/2023) Active Problems Problem Noted Date Diagnosed Date Type 2 diabetes mellitus with foot ulcer (CODE) 09/19/2022 Gastro-esophageal reflux disease without esophag itis 03/27/2022 Major depressive disorder, recurrent, unspecifie d 02/10/2021 DM (diabetes mellitus) type II, controlled, with peripheral vascular disorder 12/08/2020 Coronary artery disease of n ative artery of [place] heart with stable angina pectoris 12/08/2020 History [...] as of this encounter (statuses as of 08/30/2023) Resolved Problems Problem Noted Date Diagnosed Date [...] as of this encounter (statuses as of 08/30/2023) Immunizations Name Administration Dates Next Due COVID-19 [...] Description 08/31/2023 10:00 AM EST Anticoagulation Pharmacy, [place] [address] [facility] [place] [address] [facility] [address] [facility] [address] 09/18/2023 8:30 AM EST Hospital Encounter ENDO [facility], Endoscopy Room [facility] [address] [place] [phone] Anselmo Sung MD [address] [place] [address] 09/18/2023 8:30 AM EST - 09/18/2023 9:00 AM EST Surgery ENDO [facility], Endoscopy Room [facility] [address] [place] [address] Anselmo Sung MD [address] [place] [address] COLONOSCOPY FLEXIBLE PROXIMAL DIAGNOSTIC 09/28/2023 2:30 PM EST [facility], [place] [address] [facility] [address] [facility] [address] [facility] [address] 09/28/2023 2:40 PM EST Pharmacy Pharmacy, [place] [address] [facility] [address] [place], [facility] [address] [place] [address] 10/18/2023 9:00 AM EDT Office Visit Cardiology, [facility] [address] [place] [address] Nesha Denney CRNP [address] [place] [address] 01/03/2024 1:00 PM EDT Office Visit [facility], [place] [address] [facility] [phone] Natalia Heller PA-C [address] [place] [address] Pending Results Name Type Priority Associated Diagnoses Date /Time HEMOGLOBIN A1C Lab Routine Type 2 diabetes mellitus with foot ulcer, with long-term current use of insulin (HCC) 08/30/2023 10:08 AM EST BASIC METABOLIC PANEL Lab Routine Type 2 diabetes mellitus with foot ulcer, with long-term current use of insulin ([facility]) 08/30/2023 10:08 AM EST Scheduled Procedures Name Priority Associated Diagnoses Date/Ti [...] D LEVEL ONCE IN A LIFETIME-USE SMARTSET# 00989 Completed 06/18/2020, 07/25/2019, 05/20/2015, Additional history exists LUNG CANCER SCREENING - USE SMARTSET 18154 Completed 12/22/2022, 12/09/2021, 12/24/2020, Additional history exists Influenza Vaccine (FLU shot) Completed , 05/08/2022, 06/18/2020, Additional history exists GARDASIL-HPV IMMUNIZATION SERIES Aged Out No longer eligible based on patient's age to complete this topic MENINGOCOCCAL (MENACTRA/MENVEO) Aged Out No longer eligible based on patient's age to complete this topic documented as of this encounter Medical Devices Implanted Type Area Plaster Maker Device Identifier Shelf Expiration Date Model / Serial / Lot Graft Cervical 6x8 [id number] - [id number] Implanted:Qt y: 2 on [place] [facility] [place] Spine Cervical [employer] Co [id number] / / 14 Mm Variable Rescue Implanted:Qt y: 2 on 08/21/2008 [place] [facility] [place]A: Spine Cervical [id number] / / Description:14 mm variable r escue Screw 3.5x14 Mntr Fa [id number] - [id number] Implanted:Qt y: 10 on 07/13/2010 [place] [facility] [place]A: Spine Cervical JNJ : [employer] [id number] / / documented as of this encounter Visit Diagnoses Diagnosis Type 2 diabetes mellitus with foot ulcer, with long-term current use of insulin (HCC) Encounter for colonoscopy due to history of [...] the patient have Health Care Power of Shear Operator Helper? No Full Code 07/13/2010 12:29 PM 07/17/2010 4:03 PM Thi s order reflects the patients wishes and were consensually agreed upon. Question Answer Comments Discussion of Advance Directives occurred with: Not Discussed Does the patient have a Living Will? No Does the patient have Health Care Power of Shear Operator Helper? No Full Code 01/07/2010 6:23 AM 01/07/2010 2:05 PM This or emi reflects the patients wishes and were consensually agreed upon. Question Answer Comments Discussion of Advance Directives occurred with: Patient/Family Does the patient have a Living Will? No Does the patient have Health Care Power of Shear Operator Helper? No Full Code 10/15/2009 7:12 AM 10/15/2009 9:26 PM This order reflects the patients wishes and were consensually agreed upon. Care Teams Worship Leader Relationship Specialty Start Date End Date Alfa Jaramillo MD [address] [facility] [place] [address] PCP - General 05/06/00 documented as of this encounter
--- OUTSIDE RECORDS SUMMARY | 2023-11-15 18:40 | External Medical Summary ---
Author Name Unknown Address Unknown Organization K01:[facility] [place] - [address] [place] [address] Laboratory Report Ordering Provider Test Date Status MARK TIERNEY 08/30/2023 10:08:41 Final Observation Date Value Abnormality Reference (Units ) Status BUN 08/30/2023 10:08:41 9 6-20 (mg/dL) Final Creatinine 08/30/2023 10:08:41 0.8 0.5-1.0 (mg/dL) Final Glomerular filtration rate/1.73 sq M.predicted [Volume Rate/Area] in Serum, Plasma or Blood by Creatinine-based formula (CKD-EPI) 08/30/2023 10:08:41 74 >=60 (mL/min) Final eGFR is calculated based on the CKD-EPI 2020 equation SODIUM 08/30/2023 10:08:41 143 135-146 (m mol/L) Final Potassium 08/30/2023 10:08:41 4.4 3.5-5.1 (m mol/L) Final Cl 08/30/2023 10:08:41 103 98-107 (mm ol/L) Final CO2 08/30/2023 10:08:41 27 22-32 (mmo l/L) Final Anion gap 08/30/2023 10:08:41 13 7-15 (mmol /L) Final Glucose 08/30/2023 10:08:41 182 Above high normal 70 -120 (mg/dL) Final Calcium 08/30/2023 10:08:41 9.3 8.4-10.2 ( mg/dL) Final Performing Location [facility] [place] - [address] [place] [address]
--- OUTSIDE RECORDS SUMMARY | 2023-11-15 18:40 | External Medical Summary | Summary of Care ---
Author Name Unknown Organization [facility] Address [address] [place] [address] Phone [phone] Care Team Providers Care Slitter Processed Film Name Role Phone Alfa Jaramillo MD Primary Care Provider +1- [phone] Encounter Details Date Type Department Care Team (Late st Contact Info) Description 08/08/2023 Telephone [facility] [address] [place] [address] Alfa Jaramillo MD [address] [place] [address] Allergies Active Allergy Reactions Criticality Noted Date Comments Alendronate Sodium 06/24/2012 Burning sensation and difficulty breathing Proton Pump Inhibitors Hives 02/20/2002 nexium documented as of this encounter (statuses as of 08/08/2023) Medications Medication Sig Dispensed Refills Start Date [...] directed. Change every 10 days. Supplied by [employer]: [phone] 0 Active Dexcom G6 Transmitter Use as directed. Change every 90 days. Supplied by [employer]: [phone] 0 Active Dexcom G6 Merchandise Flow Manager Device Use as directed. 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 0 05/03/2005 documented as of this encounter (statuses as of 08/08/2023) Resolved Problems Problem Noted Date Diagnosed Date Resolved Date Major depressive disorder, s gwendolyn episode, unspecified 12/08/2020 09/11/2022 Overview: More specified/recent code listed on PL Open wound of left ankle 03/24/202003/2021 Surgical wound breakdown, dumont bsequent encounter 03/24/2020 02/10/2021 Type 2 diabetes mellitus wit h diabetic peripheral angiopathy without gangrene 07/25/2019 1 09/24/2021 Overview: duplicate Current use of insulin 07/25/201902/10 Diabetic foot infection 05/02/2019 12 Cellulitis of right lower extremity 05/02/2019 07/25/2019 [...] as of this encounter (statuses as of 08/08/2023) Immunizations Name Administration Dates Next Due COVID-19 [...] encounter Miscellaneous Notes * Telephone Encounter - Isaac Osei [facility] - 08/08/2023 12:37 PM EST Called [employer]. Instructed to send paperwork to [email or web address] Isaac Osei PharmD, BCACP, [facility] Clinical Pharmacist 08/08/2023, 12:37 PM * Telephone Encounter - Lisa Goldman OSA - 08/08/2023 11:42 AM EST Received call from Jose at [employer]. She is asking if we received the paperwork for [employer] Can you please call Jose from [employer] at extension [phone]. Thank you. documented in this encounter Plan of Treatment Upcoming Encounters Date Type Department Care Team (Latest Contact Info) Description 08/31/2023 10:00 AM EST Anticoagulation Pharmacy, [place] [address] [place] [facility] [place] [address] [facility] [address] [place] [address] 09/18/2023 8:30 AM EST Hospital Encounter [facility]O [facility], Endoscopy Room [facility] [address] [place] [address] Anselmo Sung MD [address] [place] [address] 09/18/2023 8:30 AM EST - 09/18/2023 9:00 AM EST Surgery ENDO [facility], Endoscopy Room [facility] [address] [place] [address] Anselmo Sung MD [address] [place] [address] COLONOSCOPY FLEXIBLE PROXIMAL DIAGNOSTIC 09/28/2023 2:30 PM EST Anticoagulation Pharmacy, [place] [address] [place] [address] [facility] [address] [place] [address] 09/28/2023 2:40 PM EST Pharmacy Pharmacy, [place] [address] [place] [address] [facility] [address] [place] [address] 10/18/2023 9:00 AM EDT [facility] [place] [address] Nesha Denney CRNP [address] [facility] [place] [address] 01/03/2024 1:00 PM EDT Office Visit [place] [address] [place] [facility] [place] [phone] Natalia Heller PA-C [address] [place] [address] Scheduled Procedures Name Priority Associated Diagnoses Date/Ti [...] 11/16/2020, 03/21/2018, Additional history exists COVID-19 Vaccine ( season) 2023 05/08/2022, 07/20/2021, 10/13/2020, Additional history exists Albumin/Creatinine Ratio 01/03/2024 023, 09/19/2022, 04/18/2021, Additional history exists HbA1c 01/03/2024 07/05/2023, 053 , 09/19/2022, Additional history exists O2 ASSESSMENT COMPLETED [...] D LEVEL ONCE IN A LIFETIME-USE SMARTSET# 21136 Completed 06/18/2020, 07/25/2019, 05/20/2015, Additional history exists LUNG CANCER SCREENING - USE SMARTSET 44835 Completed 12/22/2022, 12/09/2021, 12/24/2020, Additional history exists Influenza Vaccine (FLU shot) Completed , 05/08/2022, 06/18/2020, Additional history exists GARDASIL-HPV IMMUNIZATION SERIES Aged Out No longer eligible based on patient's age to complete this topic MENINGOCOCCAL (MENACTRA/MENVEO) Aged Out No longer eligible based on patient's age to complete this topic documented as of this encounter Medical Devices Implanted Type Area Chemist Device Identifier Shelf Expiration Date Model / Serial / Lot Graft Cervical 6x8 [id number] - [id number] Implanted:Qt y: 2 on 08/21/2008 [place] [facility] [place] - Human Spine Cervical [employer] Co [id number] / / 14 Mm Variable Rescue Implanted:Qt y: 2 on 08/21/2008 at [place] [facility] [place] N/A: Spine Cervical [id number] / / Description:14 mm variable r escue Screw 3.5x14 Mntr Fa [id number] - [id number] Implanted:Qt y: 10 on 07/13/2010 at [place] [facility] [place]/A: Spine Cervical JNJ : [employer] [id number] / / documented as of this encounter [...] the patient have Health Care Power of Tour Production Supervisor? No Full Code 07/13/2010 12:29 PM 07/17/2010 4:03 PM Thi s order reflects the patients wishes and were consensually agreed upon. Question Answer Comments Discussion of Advance Directives occurred with: Not Discussed Does the patient have a Living Will? No Does the patient have Health Care Power of Tour Production Supervisor? No Full Code 01/07/2010 6:23 AM 01/07/2010 2:05 PM This or emi reflects the patients wishes and were consensually agreed upon. Question Answer Comments Discussion of Advance Directives occurred with: Patient/Family Does the patient have a Living Will? No Does the patient have Health Care Power of Tour Production Supervisor? No Full Code 10/15/2009 7:12 AM 10/15/2009 9:26 PM This order reflects the patients wishes and were consensually agreed upon. Care Teams Slitter Processed Film Relationship Specialty Start Date End Date Alfa Jaramillo MD [address] [place] [address] PCP - General 05/06/00 documented as of this encounter
--- OUTSIDE RECORDS SUMMARY | 2023-11-15 18:40 | External Medical Summary | Summary of Care ---
Author Name Unknown Organization [facility] Address [address] [place] [address] Phone [phone] Care Team Providers Care Field Project Manager Name Role Phone Alfa Jaramillo MD Primary Care Provider +1- [phone] Encounter Details Date Type Department Care Team (Late st Contact Info) Description 07/20/2023 Telephone [facility] [address] [place] [address] Alfa Jaramillo MD [address] [place] [address] Allergies Active Allergy Reactions Criticality Noted Date Comments Alendronate Sodium 06/24/2012 Burning sensation and difficulty breathing Proton Pump Inhibitors Hives 02/20/2002 nexium documented as of this encounter (statuses as of 08/09/2023) Medications Medication Sig Dispensed Refills Start Date [...] directed. Change every 10 days. Supplied by [employer]: [phone] 0 Active Dexcom G6 Transmitter Use as directed. Change every 90 days. Supplied by [employer]: [phone] 0 Active Dexcom G6 Applied Exercise Physiologist Device Use as directed. 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 Up [...] MOUTH TWICE A DAY 180 Capsule 1 01/11/2023 3 documented as of this encounter (statuses as of 08/09/2023) Active Problems Problem Noted Date Diagnosed Date Type 2 diabetes mellitus with foot ulcer (CODE) 09/19/2022 Gastro-esophageal reflux disease without esophag itis 03/27/2022 Major depressive disorder, recurrent, unspecifie d 02/10/2021 DM (diabetes mellitus) type II, controlled, with peripheral vascular disorder 12/08/2020 Coronary artery disease of n ative artery of [place] heart with stable angina pectoris 12/08/2020 History [...] Per Lipid Taxonomy. 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 0 05/03/2005 documented as of this encounter (statuses as of 08/09/2023) Resolved Problems Problem Noted Date Diagnosed Date [...] as of this encounter (statuses as of 08/09/2023) Immunizations Name Administration Dates Next Due COVID-19 [...] encounter Miscellaneous Notes * Addendum Note - Natalia Heller PA-C - 08/09/2023 12:10 PM ESTAddended by: NATALIA HELLER on: 08/09/2023 12:10 PM Modules accepted: Orders * Telephone Encounter - Natalia Heller PA-C - 08/09/2023 12:09 PM EST Type 2 diabetes mellitus with foot ulcer (CODE) (HCC) (Primary) - DURABLE MEDICAL EQUIPMENT Natalia Heller PA-C 08/09/2023 12:09 PM * Telephone Encounter - Yovana Mcgee RPh - 08/07/2023 12:32 PM EST Order needs signed by pcp, or placed through [email or web address]. Yovana Mcgee, Pharm D, BCACP Clinical Pharmacist 08/07/2023, 12:32 PM * Telephone Encounter - Emilee Blanco LPN - 08/07/2023 12:22 PM EST I believe the pt needed an order for an Insulin pump, but I believe it has to be done via DME order. Is that what you mean? We have not sent it anywhere because I thought we needed the DME signed order first. They we would have to put it through [facility]. I hope this helps. * Telephone Encounter - Natalia Heller PA-C - 07/23/2023 10:42 AM EST Emilee = where did this come from? Natalia Heller PA-C * Telephone Encounter - Yovana Mcgee [facility] - 07/23/2023 8:20 AM EST What order form? These are not sent via prescriptions, these are done through DME companies? What company is reaching out? If not company than because patient has Medicare this need sent through [employer]. Yovana Mcgee, Pharm D, [facility] Clinical Pharmacist 07/23/2023, 8:21 AM * Telephone Encounter - Natalia Heller PA-C - 07/23/2023 8:02 AM EST Mtm - can you fill in the appropriate information so pcp can sign? Natalia Heller PA-C * Telephone Encounter - Emilee Blanco LPN - 07/20/2023 2:33 PM EST Need a signed order of a DME for insulin pump documented in this encounter Plan of Treatment Upcoming Encounters Date Type Department Care Team (Latest Contact Info) Description 08/31/2023 10:00 AM EST Anticoagulation Pharmacy, [place] [address] [place] [address] [place], [facility] [address] [place] [address] 09/18/2023 8:30 AM EST Hospital Encounter ENDO [facility], Endoscopy Room [facility] [address] [place] [address] Anselmo Sung MD [address] [place] [address] 09/18/2023 8:30 AM EST - 09/18/2023 9:00 AM EST Surgery ENDO [facility], Endoscopy Room [facility] [address] [place] [address] Anselmo Sung MD [address] [place] [address] COLONOSCOPY FLEXIBLE PROXIMAL DIAGNOSTIC 09/28/2023 2:30 PM EST Anticoagulation Pharmacy, [place] [address] [facility] [place] [address] [facility] [address] [facility] [place] [address] 09/28/2023 2:40 PM EST Pharmacy Pharmacy, [place] [address] [facility] [place] [address] [facility] [address] [place] [facility] [place] [address] 10/18/2023 9:00 AM EDT Office Visit Cardiology, [facility] [address] [place] [address] Nesha Denney CRNP [address] [place] [address] 01/03/2024 1:00 PM EDT Office Visit [facility] [place] [address] [facility] [phone] Natalia Heller PA-C [address] [place] [address] Scheduled Procedures Name Priority Associated Diagnoses Date/Ti [...] 04/18/2021, Additional history exists HbA1c 01/03/2024 07/05/2023, 05/3 , 09/19/2022, Additional history exists O2 ASSESSMENT COMPLETED IN PAST YEAR FOR COPD 05/04/2024 05/04/2023 Mammogram 06/07/2024 06/07/2023, 11/0 08/2021, 05/26/2021, Additional history exists DIG LEVEL [...] D LEVEL ONCE IN A LIFETIME-USE SMARTSET# 08905 Completed 06/18/2020, 07/25/2019, 05/20/2015, Additional history exists LUNG CANCER SCREENING - USE SMARTSET 05834 Completed 12/22/2022, 12/09/2021, 12/24/2020, Additional history exists Influenza Vaccine (FLU shot) Completed , 05/08/2022, 06/18/2020, Additional history exists GARDASIL-HPV IMMUNIZATION SERIES Aged Out No longer eligible based on patient's age to complete this topic MENINGOCOCCAL (MENACTRA/MENVEO) Aged Out No longer eligible based on patient's age to complete this topic documented as of this encounter Medical Devices Implanted Type Area Bonding Equipment Operator Device Identifier Shelf Expiration Date Model / Serial / Lot Graft Cervical 6x8 [id number] - [id number] Implanted:Qt y: 2 on [place] [facility] [place] - Human Spine Cervical [employer] [id number] / / 14 Mm Variable Rescue Implanted:Qt y: 2 on 08/21/2008 [place] [facility] [place]/A: Spine Cervical [id number] / / Description:14 mm variable r escue Screw 3.5x14 Mntr Fa [id number] - [id number] Implanted:Qt y: 10 on 07/13/2010 [place] [facility] [place]A: Spine Cervical JNJ : [employer] [id number] / / documented as of this encounter Visit Diagnoses Diagnosis Type 2 diabetes mellitus with foot ulcer (CODE) (HCC)- Primary Encounter for colonoscopy due to history of [...] the patient have Health Care Power of Airline Reservation Agent? No Full Code 07/13/2010 12:29 PM 07/17/2010 4:03 PM Thi s order reflects the patients wishes and were consensually agreed upon. Question Answer Comments Discussion of Advance Directives occurred with: Not Discussed Does the patient have a Living Will? No Does the patient have Health Care Power of Airline Reservation Agent? No Full Code 01/07/2010 6:23 AM 01/07/2010 2:05 PM This or emi reflects the patients wishes and were consensually agreed upon. Question Answer Comments Discussion of Advance Directives occurred with: Patient/Family Does the patient have a Living Will? No Does the patient have Health Care Power of Airline Reservation Agent? No Full Code 10/15/2009 7:12 AM 10/15/2009 9:26 PM This order reflects the patients wishes and were consensually agreed upon. Care Teams Field Project Manager Relationship Specialty Start Date End Date Alfa Jaramillo MD [address] [place] [address] PCP - General 05/06/00 documented as of this encounter
--- OUTSIDE RECORDS SUMMARY | 2023-11-15 18:40 | External Medical Summary | Summary of Care ---
Author Name Unknown Organization [facility] Address [address] [facility] [place] [address] Phone [phone] Care Team Providers Care Fur Grader Name Role Phone Wayne Spencer MD Primary Care Provider +1- [phone] Reason for Visit * Reason Comments Medication Refill Encounter Details Date Type Department Care Team (Late st Contact Info) Description 08/17/2023 Refill [facility] [address] [place] [address] Wayne Spencer MD [address] [place] [address] Diabetic polyneuropathy associated with type 1 diabetes mellitus (HCC) Allergies Active Allergy Reactions Criticality Noted Date Comments Alendronate Sodium 06/24/2012 Burning sensation and difficulty breathing Proton Pump Inhibitors Hives 02/20/2002 nexium documented as of this encounter (statuses as of 08/20/2023) Medications Medication Sig Dispensed Refills Start Date [...] directed. Change every 10 days. Supplied by [employer]: [phone] 0 Active Dexcom G6 Transmitter Use as directed. Change every 90 days. Supplied by [employer]: [phone] 0 Active Dexcom G6 Color Worker Device Use as directed. 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 Up [...] 180 Capsule 1 08/20/2023 02/19/20 24 Active Pregabalin 150 MG Oral Capsule (Lyrica)Indications :Diabetic polyneuropathy associated with type 1 diabetes mellitus (HCC) TAKE ONE CAPSULE BY MOUTH TWICE A DAY 180 Capsule 1 01/11/2023 08/17/19 24 Discontinu ed(Refill) documented as of this encounter (statuses as of 08/20/2023) Active Problems Problem Noted Date Diagnosed Date Type 2 diabetes mellitus with foot ulcer (CODE) 09/19/2022 Gastro-esophageal reflux disease without esophag itis 03/27/2022 Major depressive disorder, recurrent, unspecifie d 02/10/2021 DM (diabetes mellitus) type II, controlled, with peripheral vascular disorder 12/08/2020 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 12/08/2020 History [...] as of this encounter (statuses as of 08/20/2023) Resolved Problems Problem Noted Date Diagnosed Date [...] as of this encounter (statuses as of 08/20/2023) Immunizations Name Administration Dates Next Due COVID-19 [...] encounter Miscellaneous Notes * Telephone Encounter - Wayne Spencer MD - 08/20/2023 7:37 AM ESTSigned Prescriptions: Disp Refills Pregabalin 150 MG Oral Capsule (Lyrica) 180 Ca*1 Sig: TAKE ONE CAPSULE BY MOUTH TWICE A DAY Authorizing Provider: WAYNE SPENCER * Telephone Encounter - Ludmila Reyes [facility] - 08/20/2023 5:46 AM EST Pending Prescriptions: Disp Refills Pregabalin 150 MG Oral Capsule (Lyrica) 180 Ca*1 Sig: TAKE ONE CAPSULE BY MOUTH TWICE A DAY * Telephone Encounter - Ludmila Reyes [facility] - 08/20/2023 5:45 AM EST I have reviewed the patients controlled substance dispensing history in the Prescription Drug Monitoring Program in compliance with the [facility] regulations before prescribing a controlled substance. PDMP checked on 08/20/2023. Pending Prescriptions: Disp Refills Pregabalin 150 MG Oral Capsule (Lyrica) 180 Ca*1 Sig: TAKE ONE CAPSULE BY MOUTH TWICE A DAY Last Visit: 07/05/2023 (in office), Visit date not found (telemedicine) Next Visit: 01/03/2024 Date medication was last filled: 05/04 Date medication is due for refill: 08/01 Pharmacy: [facility] Is this request for a controlled substance? Yes and Urine Drug Screen Not completed Toxicology results: No results found. However, due to the size of the patient record, not all encounters were searched.Please check Results Review for a complete set of results. Please approve if appropriate. Thank you, Ludmila Reyes, PharmD. Clinical Pharmacist Centralized Clinical Pharmacy Services (CCPS) (formerly Telepharmacy) 08/20/2023, 5:45 AM documented in this encounter Plan of Treatment Upcoming Encounters Date Type Department Care Team (Latest Contact Info) Description 08/31/2023 10:00 AM EST Anticoagulation Pharmacy[address] [address] [place] [address] [place] [address] 09/18/2023 8:30 AM EST Hospital Encounter ENDO OSSC, Endoscopy Room [facility] [address] [facility] [place] [phone] Anselmo Sung MD [address] [place] [address] 09/18/2023 8:30 AM EST - 09/18/2023 9:00 AM EST Surgery ENDO OSSC, Endoscopy Room [facility] [place] [phone] Anselmo Sung MD [address] [place] [address] COLONOSCOPY FLEXIBLE PROXIMAL DIAGNOSTIC 09/28/2023 2:30 PM EST Anticoagulation Pharmacy, [place] [address] [place] [facility] [address] [facility] [address] [place] [address] 09/28/2023 2:40 PM EST Pharmacy Pharmacy, [place] [address] [place] [facility] [place] [address] [facility] [address] [place] [facility] [address] 10/18/2023 9:00 AM EDT Office Visit Cardiology, [facility] [address] [facility] [place] [address] Nesha Denney CRNP [address] [place] [address] 01/03/2024 1:00 PM EDT Office Visit Family [facility], [place] [address] [place] [phone] Natalia Heller PA-C [address] [place] [address] Scheduled Procedures Name Priority Associated Diagnoses Date/Ti [...] 09/15/2014, 07/15/2008, 02/09/1998 DXA Scan 02/19/2025 02/19/2023, 10/0 02/2020, 11/02/2017, Additional history exists Pneumococcal Vaccine: 65+ Years Completed 01/20/2016, 01/15/2015, 09/18/2006, Additional history exists VITAMIN D LEVEL ONCE IN A LIFETIME-USE SMARTSET# 28160 Completed 06/18/2020, 07/25/2019, 05/20/2015, Additional history exists LUNG CANCER SCREENING - USE SMARTSET 90659 Completed 12/22/2022, 12/09/2021, 12/24/2020, Additional history exists Influenza Vaccine (FLU shot) Completed , 05/08/2022, 06/18/2020, Additional history exists GARDASIL-HPV IMMUNIZATION SERIES Aged Out No longer eligible based on patient's age to complete this topic MENINGOCOCCAL (MENACTRA/MENVEO) Aged Out No longer eligible based on patient's age to complete this topic documented as of this encounter Medical Devices Implanted Type Area Machine Chocolate Molder Device Identifier Shelf Expiration Date Model / Serial / Lot Graft Cervical 6x8 [id number] - [id number] Implanted:Qt y: 2 [place] [facility] [place] Human Spine Cervical [employer] [id number] / / 14 Mm Variable Rescue Implanted:Qt y: 2 on 08/21/2008 [place] [facility] [place]A: Spine Cervical 1868-54-014 / / Description:14 mm variable r escue Screw 3.5x14 Mntr Fa [id number] - [id number] Implanted:Qt y: 10 on 07/13/2010 [place] [facility] [place]: Spine Cervical JN[place] : [employer] [id number] / / documented as of this encounter Visit Diagnoses Diagnosis Diabetic polyneuropathy associated with type 1 diabetes mellitus (HCC) Encounter for colonoscopy due to history [...] the patient have Health Care Power of Registered Nurses? No Full Code 07/13/2010 12:29 PM 07/17/2010 4:03 PM Thi s order reflects the patients wishes and were consensually agreed upon. Question Answer Comments Discussion of Advance Directives occurred with: Not Discussed Does the patient have a Living Will? No Does the patient have Health Care Power of Registered Nurses? No Full Code 01/07/2010 6:23 AM 01/07/2010 2:05 PM This or emi reflects the patients wishes and were consensually agreed upon. Question Answer Comments Discussion of Advance Directives occurred with: Patient/Family Does the patient have a Living Will? No Does the patient have Health Care Power of Registered Nurses? No Full Code 10/15/2009 7:12 AM 10/15/2009 9:26 PM This order reflects the patients wishes and were consensually agreed upon. Care Teams Fur Grader Relationship Specialty Start Date End Date Wayne Specner MD [address] [place] [address] PCP - General 05/06/00 documented as of this encounter
--- OUTSIDE RECORDS SUMMARY | 2023-11-15 18:40 | External Medical Summary | Summary of Care ---
Author Name Unknown Organization [facility] Address [address] [facility] [place] [address] Phone [phone] Care Team Providers Care Performance Improvement Consultant Name Role Phone Alfa Jaramillo MD Primary Care Provider +1- [phone] Encounter Details Date Type Department Care Team (Late st Contact Info) Description 08/09/2023 Telephone [facility] [address] [place] [address] Alfa Jaramillo MD [address] [place] [address] Allergies Active Allergy Reactions Criticality Noted Date Comments Alendronate Sodium 06/24/2012 Burning sensation and difficulty breathing Proton Pump Inhibitors Hives 02/20/2002 nexium documented as of this encounter (statuses as of 08/24/2023) Medications Medication Sig Dispensed Refills Start Date [...] directed. Change every 10 days. Supplied by [employer]: [phone] 0 Active Dexcom G6 Transmitter Use as directed. Change every 90 days. Supplied by [employer]: [phone] 0 Active Dexcom G6 Commodity Merchant Device Use as directed. 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 documented in this encounter Plan of Treatment Upcoming Encounters Date Type Department Care Team (Latest Contact Info) Description 08/31/2023 10:00 AM EST Anticoagulation Pharmacy, [place] [address] [facility], [place] [address] [facility] [address] [facility], [place] [address] 09/18/2023 8:30 AM EST Hospital Encounter ENDO OSS, Endoscopy Room [facility] [address] [place] [address] Anselmo Sung MD [address] [place] [address] 09/18/2023 8:30 AM EST - 09/18/2023 9:00 AM EST Surgery ENDO OSS, Endoscopy Room [facility] [address] [place] [address] Anselmo Sung MD [address] [place] [address] COLONOSCOPY FLEXIBLE PROXIMAL DIAGNOSTIC 09/28/2023 2:30 PM EST Anticoagulation Pharmacy, [place] [address] [facility] [address] [place], [facility] [address] [facility], [place] [address] 09/28/2023 2:40 PM EST Pharmacy Pharmacy, [place] [address] [facility] [address] [facility] [address] [facility] [place] [address] 10/18/2023 9:00 AM EDT Office Visit Cardiology, [facility] [address] [place] [address] Nesha Denney CRNP [address] [place] [address] 01/03/2024 1:00 PM EDT Office Visit Family Practice, [place] [address] [place] [phone] Natalia Heller PA-C [address] [facility] [place] [address] Scheduled Procedures Name Priority Associated Diagnoses Date/Ti [...] D LEVEL ONCE IN A LIFETIME-USE SMARTSET# [id number] Completed 06/18/2020, 07/25/2019, 05/20/2015, Additional history exists LUNG CANCER SCREENING - USE SMARTSET 93745 Completed 12/22/2022, 12/09/2021, 12/24/2020, Additional history exists Influenza Vaccine (FLU shot) Completed , 05/08/2022, 06/18/2020, Additional history exists GARDASIL-HPV IMMUNIZATION SERIES Aged Out No longer eligible based on patient's age to complete this topic MENINGOCOCCAL (MENACTRA/MENVEO) Aged Out No longer eligible based on patient's age to complete this topic documented as of this encounter Medical Devices Implanted Type Area Commissioned Sales Associate Device Identifier Shelf Expiration Date Model / Serial / Lot Graft Cervical 6x8 [id number] - [id number] Implanted:Qt y: 2 on 08/21/2008 at [place] [facility] [place] Tissue - Human Spine Cervical [employer] [id number] / / 14 Mm Variable Rescue Implanted:Qt y: 2 on 08/21/2008 at [place] [facility] [place] N/A: Spine Cervical [id number] / / Description:14 mm variable r escue Screw 3.5x14 Mntr Fa [id number] - [id number] Implanted:Qt y: 10 on 07/13/2010 at [place] [facility] [place] N/A: Spine Cervical JNJ : [employer] [id number] / / documented as of this encounter [...] the patient have Health Care Power of Marine Oil Terminal Superintendent? No Full Code 07/13/2010 12:29 PM 07/17/2010 4:03 PM Thi s order reflects the patients wishes and were consensually agreed upon. Question Answer Comments Discussion of Advance Directives occurred with: Not Discussed Does the patient have a Living Will? No Does the patient have Health Care Power of Marine Oil Terminal Superintendent? No Full Code 01/07/2010 6:23 AM 01/07/2010 2:05 PM This or emi reflects the patients wishes and were consensually agreed upon. Question Answer Comments Discussion of Advance Directives occurred with: Patient/Family Does the patient have a Living Will? No Does the patient have Health Care Power of Marine Oil Terminal Superintendent? No Full Code 10/15/2009 7:12 AM 10/15/2009 9:26 PM This order reflects the patients wishes and were consensually agreed upon. Care Teams Performance Improvement Consultant Relationship Specialty Start Date End Date Alfa Jaramillo MD [address] [place] [facility] [address] PCP - General 05/06/00 documented as of this encounter
--- OUTSIDE RECORDS SUMMARY | 2023-11-15 18:40 | External Medical Summary | Summary of Care ---
Author Name Unknown Organization [facility] Address [address] [facility] [place] [address] Phone [phone] Care Team Providers Care Cnc Cutting Operator Name Role Phone Alfa Jaramillo MD Primary Care Provider +1- [phone] Reason for Visit * Reason Onset Date Comments Fax 08/09/2023 Encounter Details Date Type Department Care Team (Late st Contact Info) Description 08/09/[address] [facility] [address] [place] [address] Alfa Jaramillo MD [address] [place] [address] Fax Allergies Active Allergy Reactions Criticality Noted Date Comments Alendronate Sodium 06/24/2012 Burning sensation and difficulty breathing Proton Pump Inhibitors Hives 02/20/2002 nexium documented as of this encounter (statuses as of 09/05/2023) Medications Medication Sig Dispensed Refills Start Date [...] directed. Change every 10 days. Supplied by [employer]: [phone] Active Dexcom G6 Transmitter Use as directed. Change every 90 days. Supplied by [employer]: [phone] 0 Active Dexcom G6 Museum Assistant Device Use as directed. Supplied by [employer]: [phone] 0 Active Fluticasone Propionate 50 MCG/ACT Nasal [...] Warfarin Sodium 5 MG Oral Tablet (Coumadin)Indicatio ns:[facility]I current use of anticoagulant therapy,Deep vein thrombosis (DVT) ([facility]) TAKE ONE TABLET TO ONE AND ONE-HALF TABLET BY MOUTH EVERY DAY DIRECTED BY [facility] 135 Tablet 3 08/12/2022 09/16/2023 Active Insulin Aspart 100 UNIT/ML Injection Solution (NovoLOG)Indication s:Type 2 diabetes mellitus with foot ulcer, with long-term current use of insulin ([facility]) Use with insulin pump. Up [...] as of this encounter (statuses as of 09/05/2023) Active Problems Problem Noted Date Diagnosed Date Type 2 diabetes mellitus with foot ulcer (CODE) 09/19/2022 Gastro-esophageal reflux disease without esophag itis 03/27/2022 Major depressive disorder, recurrent, unspecifie d 02/10/2021 DM (diabetes mellitus) type II, controlled, with peripheral vascular disorder 12/08/2020 Coronary artery disease of n ative artery of [place] heart with stable angina pectoris 12/08/2020 History [...] Per Lipid Taxonomy. Cervical spinal stenosis 08/21/2008 [facility] current use of anticoagulant therapy 0 05/03/2005 documented as of this encounter (statuses as of 09/05/2023) Resolved Problems Problem Noted Date Diagnosed Date [...] as of this encounter (statuses as of 09/05/2023) Immunizations Name Administration Dates Next Due COVID-19 [...] encounter Miscellaneous Notes * Telephone Encounter - Hamida Young CPhT - 09/05/2023 1:45 PM EST [employer] calling regarding an order they had sent over for diabetic supplies. Caller states theydid not receive the fax back yet and they will re-send the forms. [employer] Thank you, Joana Young Bartender Manager I Centralized Clinical Pharmacy Services (CCPS) (Formerly Telepharmacy) 09/05/2023,1:46 PM * Telephone Encounter - Thalia Main LPN - 08/09/2023 9:19 AM EST Form from [employer] placed on providers desk for signing. documented in this encounter Plan of Treatment Upcoming Encounters Date Type Department Care Team (Latest Contact Info) Description 09/18/2023 8:30 AM EST Hospital Encounter ENDO OSSC, Endoscopy Room [facility] [address] [place] [phone] Anselmo Sung MD [address] [place] [address] 09/18/2023 8:30 AM EST - 09/18/2023 9:00 AM EST Surgery ENDO OSSC, Endoscopy Room [facility] [address] [place] [phone] Anselmo Sung MD [address] [place] [address] COLONOSCOPY FLEXIBLE PROXIMAL DIAGNOSTIC 09/28/2023 2:30 PM EST [facility]ticoagulation Pharmacy, [place] [address] [facility] [address] [facility] [address] [place] [address] 09/28/2023 2:40 PM EST Pharmacy Pharmacy, [place] [address] [place] [facility] [address] [facility] [address] [place] [facility] [facility] [place] [address] 10/18/2023 9:00 AM EDT Office Visit Cardiology, [facility] [address] [facility] [place] [address] Nesha Denney CRNP [address] [facility] [place] [address] 01/03/2024 1:00 PM EDT Office Visit Family Practice, [place] [address] [facility] [phone] Natalia Heller PA-C [address] [place] [address] Scheduled Procedures Name Priority Associated Diagnoses Date/Ti [...] FOR COPD 05/04/2024 05/04/2023 Mammogram 06/07/2024 06/07/2023, 1108/2021, 06/06/2022, Additional history [...] D LEVEL ONCE IN A LIFETIME-USE SMARTSET# [id number] Completed 06/18/2020, 07/25/2019, 05/20/2015, Additional history exists LUNG CANCER SCREENING - USE SMARTSET 52641 Completed 12/22/2022, 12/09/2021, 12/24/2020, Additional history exists Influenza Vaccine (FLU shot) Completed , 05/08/2022, 06/18/2020, Additional history exists GARDASIL-HPV IMMUNIZATION SERIES Aged Out No longer eligible based on patient's age to complete this topic MENINGOCOCCAL (MENACTRA/MENVEO) Aged Out No longer eligible based on patient's age to complete this topic documented as of this encounter Medical Devices Implanted Type Area Income Tax Expert Device Identifier Shelf Expiration Date Model / Serial / Lot Graft Cervical 6x8 [id number] - [id number] Implanted:Qt y: 2 on 08/21/[place] [facility] [place] - Human Spine Cervical [employer] [id number] / / 14 Mm Variable Rescue Implanted:Qt y: 2 on 08/21/2008 [place] [facility] [place]A: Spine Cervical 1868-54-014 / / Description:14 mm variable r escue Screw 3.5x14 Mntr Fa [id number] - [id number] Implanted:Qt y: 10 on 07/13/2010 [place] [facility] [place]A: Spine Cervical JN[place] : [employer] [id number] / / documented as of this encounter [...] the patient have Health Care Power of Change Management Director? No Full Code 07/13/2010 12:29 PM 07/17/2010 4:03 PM Thi s order reflects the patients wishes and were consensually agreed upon. Question Answer Comments Discussion of Advance Directives occurred with: Not Discussed Does the patient have a Living Will? No Does the patient have Health Care Power of Change Management Director? No Full Code 01/07/2010 6:23 AM 01/07/2010 2:05 PM This or emi reflects the patients wishes and were consensually agreed upon. Question Answer Comments Discussion of Advance Directives occurred with: Patient/Family Does the patient have a Living Will? No Does the patient have Health Care Power of Change Management Director? No Full Code 10/15/2009 7:12 AM 10/15/2009 9:26 PM This order reflects the patients wishes and were consensually agreed upon. Care Teams Cnc Cutting Operator Relationship Specialty Start Date End Date Alfa Jaramillo MD [address] [facility] [place] [address] PCP - General 05/06/00 documented as of this encounter
--- OUTSIDE RECORDS SUMMARY | 2023-11-15 18:40 | External Medical Summary | Summary of Care ---
Author Name Unknown Organization [facility] Address [address] [place] [address] Phone [phone] Care Team Providers Care Optometrist President/Practice Owner Name Role Phone Alfa Jaramillo MD Primary Care Provider +1- [phone] Encounter Details Date Type Department Care Team (Late st Contact Info) Description 08/08/2023 Telephone [facility] [address] [place] [address] Alfa Jaramillo MD [address] [place] [address] Allergies Active Allergy Reactions Criticality [...] directed. Change every 10 days. Supplied by [employer]: [phone] 0 Active Dexcom G6 Transmitter Use as directed. Change every 90 days. Supplied by [employer]: [phone] 0 Active Dexcom G6 Skiving Machine Operator Device Use as directed. 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 She is asking if we received the paperwork for [employer] Can you please call Jose from [employer] at extension [phone]. Thank you. documented in this encounter Plan of Treatment Upcoming Encounters Date Type Department Care Team (Latest Contact Info) Description 08/31/2023 10:00 AM EST Anticoagulation Pharmacy, [place] [address] [place] [facility] [place] [address] [facility] [address] [place] [address] 09/18/2023 8:30 AM EST Hospital Encounter ENDO [facility], Endoscopy Room [facility] [address] [place] [address] Anselmo Sung MD [address] [place] [address] 09/18/2023 8:30 AM EST - 09/18/2023 9:00 AM EST Surgery ENDO [facility], Endoscopy Room [facility] [address] [place] [address] Anselmo Sung MD [address] [place] [address] COLONOSCOPY FLEXIBLE PROXIMAL DIAGNOSTIC 09/28/2023 2:30 PM EST Anticoagulation Pharmacy, [place] [address] [facility], [place] [address] [facility] [address] [place] [facility] [place] [address] 09/28/2023 2:40 PM EST Pharmacy Pharmacy, [place] [address] [place] [address] [facility] [address] [facility] [address] 10/18/2023 9:00 AM EDT Office Visit Cardiology, [facility] [address] [email or web address] [place] [address] Nesha Denney CRNP [address] [place] [address] 01/03/2024 1:00 PM EDT Office Visit Family Practice, [place] [address] [place] [facility] [place] [id number] Natalia Heller PA-C [address] [place] [address] Scheduled Procedures Name Priority Associated Diagnoses Date/Ti [...] D LEVEL ONCE IN A LIFETIME-USE SMARTSET# 09582 Completed 06/18/2020, 07/25/2019, 05/20/2015, Additional history exists LUNG CANCER SCREENING - USE SMARTSET 56315 Completed 12/22/2022, 12/09/2021, 12/24/2020, Additional history exists Influenza Vaccine (FLU shot) Completed , 05/08/2022, 06/18/2020, Additional history exists GARDASIL-HPV IMMUNIZATION SERIES Aged Out No longer eligible based on patient's age to complete this topic MENINGOCOCCAL (MENACTRA/MENVEO) Aged Out No longer eligible based on patient's age to complete this topic documented as of this encounter Medical Devices Implanted Type Area Nurse Transition Device Identifier Shelf Expiration Date Model / Serial / Lot Graft Cervical 6x8 [id number] - [id number] Implanted:Qt y: 2 on [place] [facility] [place] - Human Spine Cervical [employer] [id number] / / 14 Mm Variable Rescue Implanted:Qt y: 2 on 08[place]21/2008 [place] [facility] [place]/A: Spine Cervical [id number] / / Description:14 mm variable r escue Screw 3.5x14 Mntr Fa [id number] - [id number] Implanted:Qt y: 10 on 07/13/2010 [place] [facility] [place]A: Spine Cervical JNJ : [employer] [id number] / / documented as of this encounter [...] patient have Health Care Power of Manager Business? No Full Code 07/13/2010 12:29 PM 07/17/2010 4:03 PM Thi s order reflects the patients wishes and were consensually agreed upon. Question Answer Comments Discussion of Advance Directives occurred with: Not Discussed Does the patient have a Living Will? No Does the patient have Health Care Power of Manager Business? No Full Code 01/07/2010 6:23 AM 01/07/2010 2:05 PM This or emi reflects the patients wishes and were consensually agreed upon. Question Answer Comments Discussion of Advance Directives occurred with: Patient/Family Does the patient have a Living Will? No Does the patient have Health Care Power of Manager Business? No Full Code 10/15/2009 7:12 AM 10/15/2009 9:26 PM This order reflects the patients wishes and were consensually agreed upon. Care Teams Optometrist President/Practice Owner Relationship Specialty Start Date End Date Alfa Jaramillo MD [address] [place] [address] PCP - General 05/06/00 documented as of this encounter
--- OUTSIDE RECORDS SUMMARY | 2023-11-15 18:40 | External Medical Summary | Summary of Care ---
Author Name Unknown Organization [facility] Address [address] [facility] [place] [address] Phone [phone] Care Team Providers Care Planning Associate Name Role Phone Alfa Jaramillo MD Primary Care Provider +1- [phone] Encounter Details Date Type Department Care Team (Late st Contact Info) Description 07/20/2023 Telephone [facility] [address] [place] [address] Alfa Jaramillo MD [address] [place] [address] Allergies Active Allergy Reactions Criticality [...] directed. Change every 10 days. Supplied by [employer]: [phone] 0 Active Dexcom G6 Transmitter Use as directed. Change every 90 days. Supplied by [employer]: [phone] 0 Active Dexcom G6 Sap Solution Manager Consultant Device Use as directed. Supplied by [employer]: [phone] 0 Active Fluticasone Propionate 50 MCG/ACT Nasal [...] Warfarin Sodium 5 MG Oral Tablet (Coumadin)Indication s:care home current use of anticoagulant therapy,Deep vein thrombosis (DVT) ([facility]) TAKE ONE TABLET TO ONE AND ONE-HALF TABLET BY MOUTH EVERY DAY DIRECTED BY [facility] 135 Tablet 3 08/12/2022 4 Active Insulin Aspart 100 UNIT/ML Injection Solution (NovoLOG)Indications :Type 2 diabetes mellitus with foot ulcer, with long-term current use of insulin ([facility]) Use with insulin pump. Up to [...] artery disease of n ative artery of [place] heart with stable angina pectoris 12/08/2020 History [...] Per Lipid Taxonomy. 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 Yovana Mcgee, Pharm D, BCACP Clinical Pharmacist [...] we would have to put it through [employer]. I hope this helps. * Telephone Encounter - Natalia Heller PA-C - 07/23/2023 10:42 AM EST Emilee = where did this come from? Natalia Heller PA-C * Telephone Encounter - Yovana Mcgee RPh - 07/23/2023 8:20 AM EST What order form? These are not sent via prescriptions, these are done through DME companies? What company is reaching out? If not company than because patient has Medicare this need sent through [employer]. Yovana Mcgee, Pharm D, [facility] Clinical Pharmacist 07/23/2023, 8:21 AM * Telephone [...] Description 08/31/2023 10:00 AM EST Anticoagulation Pharmacy, [place] [address] [place] [facility] [place] [address] [facility] [address] [facility], [place] [address] 09/18/2023 8:30 AM EST Hospital Encounter ENDO [facility], Endoscopy Room [facility] [address] [place] [address] Anselmo Sung MD [address] [place], [place] [address] 09/18/2023 8:30 AM EST - 09/18/2023 9:00 AM EST Surgery ENDO [facility], Endoscopy Room [facility] [address] [place], [place] [address] Anselmo Sung MD [address] [place], [place] [address] COLONOSCOPY FLEXIBLE PROXIMAL DIAGNOSTIC 09/28/2023 2:30 PM EST Anticoagulation Pharmacy, [place] [address] [facility], [place] [address] [facility] [address] [place] [facility] [place] [address] 09/28/2023 2:40 PM EST Pharmacy Pharmacy, [place] [address] [facility], [place] [address] [facility] [address] [place] [facility] [place] [address] 10/18/2023 9:00 AM EDT Office Visit Cardiology, [facility] [address] [place] [address] Nesha Denney CRNP [address] [place] [address] 01/03/2024 1:00 PM EDT Office Visit [facility] [address] [place] [phone] Natalia Heller PA-C [address] [place] [address] Scheduled Procedures Name Priority Associated Diagnoses Date/Ti [...] COPD 05/04/2024 05/04/2023 Mammogram 06/07/2024 06/07/2023, 1108/2021, 05/26/2021, Additional history exists DIG LEVEL FOR [...] D LEVEL ONCE IN A LIFETIME-USE SMARTSET# [id number] Completed 06/18/2020, 07/25/2019, 05/20/2015, Additional history exists LUNG CANCER SCREENING - USE SMARTSET 67168 Completed 12/22/2022, 12/09/2021, 12/24/2020, Additional history exists Influenza Vaccine (FLU shot) Completed , 05/08/2022, 06/18/2020, Additional history exists GARDASIL-HPV IMMUNIZATION SERIES Aged Out No longer eligible based on patient's age to complete this topic MENINGOCOCCAL (MENACTRA/MENVEO) Aged Out No longer eligible based on patient's age to complete this topic documented as of this encounter Medical Devices Implanted Type Area Bicycle Ii Assembler Device Identifier Shelf Expiration Date Model / Serial / Lot Graft Cervical 6x8 [id number] - [id number] Implanted:Qt y: 2 on 08/21/2008 [place] [facility] [place] - Human Spine Cervical [employer] [id number] / / 14 Mm Variable Rescue Implanted:Qt y: 2 on 08/21/2008 [place] [facility] [place] N/A: Spine Cervical [id number] / / Description:14 mm variable r escue Screw 3.5x14 Mntr Fa [id number] - [id number] Implanted:Qt y: 10 on 07/13/2010 [place] [facility] [place]/A: Spine Cervical JNJ : [employer] [id number] / / documented as of this encounter [...] the patient have Health Care Power of Vacuum Metalizing Supervisor? No Full Code 07/13/2010 12:29 PM 07/17/2010 4:03 PM Thi s order reflects the patients wishes and were consensually agreed upon. Question Answer Comments Discussion of Advance Directives occurred with: Not Discussed Does the patient have a Living Will? No Does the patient have Health Care Power of Vacuum Metalizing Supervisor? No Full Code 01/07/2010 6:23 AM 01/07/2010 2:05 PM This or emi reflects the patients wishes and were consensually agreed upon. Question Answer Comments Discussion of Advance Directives occurred with: Patient/Family Does the patient have a Living Will? No Does the patient have Health Care Power of Vacuum Metalizing Supervisor? No Full Code 10/15/2009 7:12 AM 10/15/2009 9:26 PM This order reflects the patients wishes and were consensually agreed upon. Care Teams Planning Associate Relationship Specialty Start Date End Date Alfa Jaramillo MD [address] [place] [address] PCP - General 05/06/00 documented as of this encounter
--- OUTSIDE RECORDS SUMMARY | 2023-11-15 18:40 | External Medical Summary ---
Author Name Unknown Address Unknown Organization K01[place] [place] [address] [facility] [address] Laboratory Report Ordering Provider Test Date Status MARK TIERNEY 08/30/2023 10:08:41 Final Observation Date Value Abnormality Reference (Units ) Status HbA1C 08/30/2023 10:08:41 10.2 Above high normal 4. 0-5.6 (%) Final The use of HbA1c to monitor glycemic status is based on normal hemoglobin and HbA composition. This test should not be used in patients with abnormal hemoglobin that affects the half life of the red blood cell or the in vivo glycation rates. Glucose, estimated average 08/30/2023 10:08:41 246 Above high normal <126 (mg/dL) Josh hudson Performing Location [facility] [place] [address] [facility] [address]
--- OUTSIDE RECORDS SUMMARY | 2023-11-15 18:41 | External Medical Summary | Summary of Care ---
Author Name Unknown Organization [facility] Address [address] [place] [address] Phone [phone] Care Team Providers Care Military Professional Name Role Phone Alfa Jaramillo MD Primary Care Provider +1- [phone] Encounter Details Date Type Department Care Team (Late st Contact Info) Description 07/20/2023 Telephone [facility] [address] [place] [address] Alfa Jaramillo MD [address] [place] [address] Allergies Active Allergy Reactions Criticality Noted Date Comments Alendronate Sodium 06/24/2012 Burning sensation and difficulty breathing Proton Pump Inhibitors Hives 02/20/2002 nexium documented as of this encounter (statuses as of 08/07/2023) Medications Medication Sig Dispensed Refills Start Date [...] directed. Change every 10 days. Supplied by [employer]: [phone] 0 Active Dexcom G6 Transmitter Use as directed. Change every 90 days. Supplied by [employer]: [phone] 0 Active Dexcom G6 Alterations Sewer Device Use as directed. 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 Up to [...] as of this encounter (statuses as of 08/07/2023) Active Problems Problem Noted Date Diagnosed Date Type 2 diabetes mellitus with foot ulcer (CODE) 09/19/2022 Gastro-esophageal reflux disease without esophag itis 03/27/2022 Major depressive disorder, recurrent, unspecifie d 02/10/2021 DM (diabetes mellitus) type II, controlled, with peripheral vascular disorder 12/08/2020 Coronary artery disease of n ative artery of [place] heart with stable angina pectoris 12/08/2020 History [...] as of this encounter (statuses as of 08/07/2023) Resolved Problems Problem Noted Date Diagnosed Date [...] as of this encounter (statuses as of 08/07/2023) Immunizations Name Administration Dates Next Due COVID-19 [...] encounter Miscellaneous Notes * Telephone Encounter - Yovana Mcgee RPh - 08/07/2023 12:32 PM EST Order needs signed by pcp, or placed through [facility]. Rajesh Still D, [place] Clinical Pharmacist 08/07/2023, 12:32 PM * Telephone [...] we would have to put it through [facility]. I hope this helps. * Telephone Encounter - Natalia Heller PA-C - 07/23/2023 10:42 AM EST Emilee = where did this come from? Natalia Heller PA-C * Telephone Encounter - Yovana Mcgee RP - 07/23/2023 8:20 AM EST What order form? These are not sent via prescriptions, these are done through DME companies? What company is reaching out? If not company than because patient has Medicare this need sent through [employer]. Rajesh Still, [place] Clinical Pharmacist 07/23/2023, 8:21 AM * Telephone Encounter - Natalia Heller PA-C - 07/23/2023 8:02 AM EST Mtm - can you fill in the appropriate information so pcp can sign? Natalia Helelr PA-C * Telephone Encounter - Emilee Blanco LPN - 07/20/2023 2:33 PM EST Need a signed order of a DME for insulin pump documented in this encounter Plan of Treatment Upcoming Encounters Date Type Department Care Team (Latest Contact Info) Description 08/31/2023 10:00 AM EST Anticoagulation Pharmacy, [place] [address] [place] [address] [facility] [address] [place] [address] 09/18/2023 8:30 AM EST Hospital Encounter [facility], Endoscopy Room [facility] [address] [place] [phone] Anselmo Sung MD [address] [place] [address] 09/18/2023 8:30 AM EST - 09/18/2023 9:00 AM EST Surgery [facility], Endoscopy Room [facility] [address] [place] [address] Anselmo Sung MD [address] [place] [address] COLONOSCOPY FLEXIBLE PROXIMAL DIAGNOSTIC 09/28/2023 2:30 PM EST [facility], [place] [address] [address] [facility] [address] [address] 09/28/2023 2:40 PM EST Pharmacy Pharmacy, [place] [address] [address] [facility] [address] [address] 10/18/2023 9:00 AM EDT Office Visit Cardiology, [facility] [address] [place] [address] Nesha Denney CRNP [address] [place] [address] 01/03/2024 1:00 PM EDT Office Visit Family Practice, [place] [address] [address] Natalia Heller PA-C [address] [facility] [address] Scheduled Procedures Name Priority Associated Diagnoses Date/Ti [...] 04/18/2021, Additional history exists HbA1c 01/03/2024 07/05/2023, 05, 09/19/2022, Additional history exists O2 ASSESSMENT COMPLETED [...] D LEVEL ONCE IN A LIFETIME-USE SMARTSET# [id number] Completed 06/18/2020, 07/25/2019, 05/20/2015, Additional history exists LUNG CANCER SCREENING - USE SMARTSET 31383 Completed 12/22/2022, 12/09/2021, 12/24/2020, Additional history exists Influenza Vaccine (FLU shot) Completed , 05/08/2022, 06/18/2020, Additional history exists GARDASIL-HPV IMMUNIZATION SERIES Aged Out No longer eligible based on patient's age to complete this topic MENINGOCOCCAL (MENACTRA/MENVEO) Aged Out No longer eligible based on patient's age to complete this topic documented as of this encounter Medical Devices Implanted Type Area Pump Tester Device Identifier Shelf Expiration Date Model / Serial / Lot Graft Cervical 6x8 [id number] - [id number] Implanted:Qt y: 2 on 08/21/2008 at [place] [facility] [place] Tissue - Human Spine Cervical [employer] [id number] / / 14 Mm Variable Rescue Implanted:Qt y: 2 on 08/21/2008 at [place] [facility] [place] N/A: Spine Cervical [id number] / / Description:14 mm variable r escue Screw 3.5x14 Mntr Fa [id number] - [id number] Implanted:Qt y: 10 on 07/13/2010 at [place] [facility] [place] N/A: Spine Cervical JNJ : [employer] [id number] / / documented as of this encounter [...] the patient have Health Care Power of As400 Programmer Analyst? No Full Code 07/13/2010 12:29 PM 07/17/2010 4:03 PM Thi s order reflects the patients wishes and were consensually agreed upon. Question Answer Comments Discussion of Advance Directives occurred with: Not Discussed Does the patient have a Living Will? No Does the patient have Health Care Power of As400 Programmer Analyst? No Full Code 01/07/2010 6:23 AM 01/07/2010 2:05 PM This or emi reflects the patients wishes and were consensually agreed upon. Question Answer Comments Discussion of Advance Directives occurred with: Patient/Family Does the patient have a Living Will? No Does the patient have Health Care Power of As400 Programmer Analyst? No Full Code 10/15/2009 7:12 AM 10/15/2009 9:26 PM This order reflects the patients wishes and were consensually agreed upon. Care Teams Military Professional Relationship Specialty Start Date End Date Alfa Jaramillo MD [address] [place] [address] PCP - General 05/06/00 documented as of this encounter
--- OUTSIDE RECORDS SUMMARY | 2023-11-15 18:41 | External Medical Summary | Summary of Care ---
Author Name Unknown Organization [facility] Address [address] [facility] [address] Phone [phone] Care Team Providers Care Booth Cleaner Name Role Phone Alfa Jaramillo MD Primary Care Provider [phone]- [phone] Reason for Visit * Reason Comments Dosage Adjustment In Person (Anticoag Cl inic) Diabetes Management Encounter Details Date Type Department Care Team (Late st Contact Info) Description 08/03/2023 10:00 AM EST Office Visit Pharmacy, [place] [address] [place] [address] [facility] [address] [place] [address] Type 2 diabetes mellitus with foot ulcer, with long-term current use of insulin (HCC)*; DM (diabetes mellitus) type II, controlled, with peripheral vascular disorder (HCC) Allergies Active Allergy Reactions Criticality Noted Date Comments Alendronate Sodium 06/24/2012 Burning sensation and difficulty breathing Proton Pump Inhibitors Hives 02/20/2002 nexium documented as of this encounter (statuses as of 08/03/2023) Medications Medication Sig Dispensed Refills Start Date [...] directed. Change every 10 days. Supplied by [facility]: [phone] 0 Active Dexcom G6 Transmitter Use as directed. Change every 90 days. Supplied by [facility]: [phone] 0 Active Dexcom G6 Dry Kiln Operator Helper Device Use as directed. Supplied by [facility]: [phone] Active Fluticasone Propionate 50 MCG/ACT Nasal [...] Sodium 5 MG Oral Tablet (Coumadin)Indicatio ns:senior care current use of anticoagulant therapy,Deep vein thrombosis (DVT) ([facility]) TAKE ONE TABLET TO ONE AND ONE-HALF TABLET BY MOUTH EVERY DAY DIRECTED BY [facility] 135 Tablet 3 08/12/2022 09/16/2023 Active Insulin Aspart 100 UNIT/ML Injection Solution (NovoLOG)Indication s:Type 2 diabetes mellitus with foot ulcer, with long-term current use of insulin ([facility]) Use with insulin pump. Up to [...] as of this encounter (statuses as of 08/03/2023) Active Problems Problem Noted Date Diagnosed Date Type 2 diabetes mellitus with foot ulcer (CODE) 09/19/2022 Gastro-esophageal reflux disease without esophag itis 03/27/2022 Major depressive disorder, recurrent, unspecifie d 02/10/2021 DM (diabetes mellitus) type II, controlled, with peripheral vascular disorder 12/08/2020 Coronary artery disease of n ative artery of [place] heart with stable angina pectoris 12/08/2020 History [...] Lipid Taxonomy. Cervical spinal stenosis 08/21/2008 senior care current use of anticoagulant therapy 0 05/03/2005 documented as of this encounter (statuses as of 08/03/2023) Resolved Problems Problem Noted Date Diagnosed Date [...] as of this encounter (statuses as of 08/03/2023) Immunizations Name Administration Dates Next Due COVID-19 [...] as of this encounter Progress Notes * Niall Osei, [facility] - [...] 09/19/22 Medtronic 630G Insulin Pump (Serial Number: [id number]) Infusion Set: Quick set Insulin: Novolog Basal [...] BID [facility] Blood Glucose Review: Hypoglycemia Assessment: Hemoglobin AIC [...] Never Patient Active Problem List Diagnosis Code senior care current use of anticoagulant therapy Z79.01 Cervical spinal stenosis M48.02 DYSLIPIDEMIA, GOAL LDL BELOW 100 E78.5 Senile osteoporosis M81.0 COPD, moderate ([facility]) J44.9 History of DVT (deep vein thrombosis) Z86.718 History of breast cancer Z85.3 B12 deficiency E53.8 Diabetic polyneuropathy associated with type 2 diabetes mellitus ([facility]) E11.42 Diabetic cataract, associated with type 1 diabetes mellitus ([facility]) E10.36 Type 2 diabetes mellitus with skin complication, with long-term current use of insulin ([facility]) E11.628, Z79.4 Chronic atrial fibrillation ([facility]) I48.20 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 ([facility]) Z89.411 History of ankle surgery Z98.890 DM (diabetes mellitus) type II, controlled, with peripheral vascular disorder ([facility]) E11.51 Coronary artery disease of [place] artery of [place] heart with stable angina pectoris ([facility]) I25.118 Major depressive disorder, recurrent, unspecified ([facility]) F33.9 Gastro-esophageal reflux disease without esophagitis K21.9 Type 2 diabetes mellitus with foot ulcer (CODE) ([facility]) E11.621 Review of patient's allergies indicates: [...] directed. Change every 10 days. Supplied by [facility]: [phone] Dexcom G6 Transmitter Use as directed. Change every 90 days. Supplied by [facility]: [phone] Powerlytics G6 Dry Kiln Operator Helper Device Use as directed. Supplied by [facility]: [phone] Fluticasone Propionate 50 MCG/ACT Nasal Suspension (Flonase) [...] this visit. Objective: The ASCVD Risk score ([place] DK, et al., 2019) failed to calculate for the following reasons: The patient has a prior VA or stroke diagnosis Estimated body mass index is 32.35 kg/m as calculated from the following: Height as of 04/04/23: 1.651 m (5' 5"). Weight as of 07/05/23: 88.2 kg (194 lb 6.4 oz). BP Readings from Last 3 Encounters: 07/05/23 122/80 05/18/23 130/74 05/04/23 138/78 No components found for: "[id number]" No results found for: "MICROALBUMIN" Lab Results Component Value Date/Time LDL CHOLESTEROL (CALCULATED) - [facility] 83 01/02/2023 02:10 PM LDL CHOLESTEROL (CALCULATED) - [facility] 81 10/19/2017 09:32 AM LDL CHOLESTEROL (DIRECT MEASURE) - [facility] 93 12/08/2020 09:59 AM LDL CHOLESTEROL (DIRECT MEASURE) - [facility] 102 06/18/2020 09:03 AM LDL CHOLESTEROL (DIRECT MEASURE) - [facility] 47 01/05/2014 04:02 PM Lab Results Component Value Date/Time ALT 43 07/09/1996 11:15 AM ALT - [facility] 24 07/05/2023 01:32 PM ALT - [facility] 35 06/18/2020 09:03 AM Assessment & Plan: [...] weekly- Sundays GFR 80 as of 09/19/22 Kimengi 630G Insulin Pump (Serial Number: [id number]) Infusion Set: Quick set Insulin: Novolog Basal [...] up-to-date Return to Clinic: 8 week(s) 08/31/2023 Niall Osei RP Clinical Pharmacist Medication Therapy Disease Management 08/03/2023, 10:00 AM documented in this encounter Miscellaneous Notes * Addendum Note - Niall Osei RPh - 08/03/2023 10:55 AM EST Addended by: NIALL OSEI on: 08/03/2023 10:55 AM Modules accepted: Orders documented in this encounter Plan of Treatment Upcoming Encounters Date Type Department Care Team (Latest Contact Info) Description 08/07/2023 10:30 AM EST Office Visit Podiatry [address] [place] [id number] Kenny Archibald, [facility] [address] [place] [address] 08/31/2023 10:00 AM EST Anticoagulation Pharmacy, [place] [address] [facility], [place] [address] [facility] [address] [place] [facility] [place] [address] 09/18/2023 8:30 AM EST Hospital Encounter ENDO OSS, Endoscopy Room [facility] [address] [facility], [place] [address] Anselmo Sung MD [address] [place] [address] 09/18/2023 8:30 AM EST - 09/18/2023 9:00 AM EST Surgery ENDO O[facility], Endoscopy Room [facility] [address] [facility] [place] [address] Anselmo Sung MD [address] [place] [address] COLONOSCOPY FLEXIBLE PROXIMAL DIAGNOSTIC 09/28/2023 2:30 PM EST Anticoagulation Pharmacy, [place] [address] [facility], [place] [address] [facility] [address] [facility], [place] [address] 09/28/2023 2:40 PM EST Pharmacy Pharmacy, [facility] [place] [address] [place] [address] [place], [facility] [address] [facility] [place] [address] 10/18/2023 9:00 AM EDT Office Visit Cardiology, [facility] [address] [facility] [place] [address] Nesha Denney CRNP [address] [place] [address] 01/03/2024 1:00 PM EDT Office Visit [facility], [facility] [place] [address] [facility] [phone] Natalia Heller PA-C [address] [place] [address] Scheduled Orders Name Type Priority Associated Diagnoses Orde r Schedule HEMOGLOBIN A1C Lab Routine Type 2 diabetes mellitus with foot ulcer, with long-term current use of insulin (HCC) Expected: 08/03/2023 (Approximate), Expires: 08/03/2024 BASIC METABOLIC PANEL Lab Routine Type 2 diabetes mellitus with foot ulcer, with long-term current use of insulin (HCC) Expected: 08/03/2023 (Approximate), Expires: 08/03/2024 Scheduled Procedures Name Priority Associated Diagnoses Date/Ti [...] 09/15/2014, 07/15/2008, 02/09/1998 DXA Scan 02/19/2025 02/19/2023, 1002/2020, 11/02/2017, Additional history exists Pneumococcal Vaccine: 65+ Years Completed 01/20/2016, 01/15/2015, 09/18/2006, Additional history exists VITAMIN D LEVEL ONCE IN A LIFETIME-USE SMARTSET# 04425 Completed 06/18/2020, 07/25/2019, 05/20/2015, Additional history exists LUNG CANCER SCREENING - USE SMARTSET 46152 Completed 12/22/2022, 12/09/2021, 12/24/2020, Additional history exists Influenza Vaccine (FLU shot) Completed , 05/08/2022, 06/18/2020, Additional history exists GARDASIL-HPV IMMUNIZATION SERIES Aged Out No longer eligible based on patient's age to complete this topic MENINGOCOCCAL (MENACTRA/MENVEO) Aged Out No longer eligible based on patient's age to complete this topic documented as of this encounter Medical Devices Implanted Type Area Geoscience Laboratory Technician Device Identifier Shelf Expiration Date Model / Serial / Lot Graft Cervical 6x8 [id number] - [id number] Implanted:Qt y: 2 on 08/21/2008 [place] [facility] [place] [place] - Human Spine Cervical [employer] [id number] / / 14 Mm Variable Rescue Implanted:Qt y: 2 on 08/21/2008 at [place] [facility] [place] N/A: Spine Cervical [id number] / / Description:14 mm variable r escue Screw 3.5x14 Mntr Fa [id number] - [id number] Implanted:Qt y: 10 on 07/13/2010 at [place] [facility] [place] N/A: Spine Cervical [place] : [employer] [id number] / / documented as of this encounter Visit Diagnoses Diagnosis Type 2 diabetes mellitus with foot ulcer, with long-term current use of insulin (HCC)- Primary DM (diabetes mellitus) type II, controlled, with peripheral vascular disorder (HCC) Encounter for colonoscopy due to history [...] patient have Health Care Power of Director Television News? No Full Code 07/13/2010 12:29 PM 07/17/2010 4:03 PM Thi s order reflects the patients wishes and were consensually agreed upon. Question Answer Comments Discussion of Advance Directives occurred with: Not Discussed Does the patient have a Living Will? No Does the patient have Health Care Power of Director Television News? No Full Code 01/07/2010 6:23 AM 01/07/2010 2:05 PM This or emi reflects the patients wishes and were consensually agreed upon. Question Answer Comments Discussion of Advance Directives occurred with: Patient/Family Does the patient have a Living Will? No Does the patient have Health Care Power of Director Television News? No Full Code 10/15/2009 7:12 AM 10/15/2009 9:26 PM This order reflects the patients wishes and were consensually agreed upon. Care Teams Booth Cleaner Relationship Specialty Start Date End Date Alfa Jaramillo MD [address] [place] [address] PCP - General 05/06/00 documented as of this encounter
--- OUTSIDE RECORDS SUMMARY | 2023-11-15 18:41 | External Medical Summary | Summary of Care ---
Author Name Unknown Organization [facility] Address [address] [facility] [place] [address] Phone [phone] Care Team Providers Care Order Caller Name Role Phone Alfa Jaramillo MD Primary Care Provider +1- [phone] Reason for Visit * Reason Comments Dosage Adjustment In Person (Anticoag Cl inic) Diabetes Management Encounter Details Date Type Department Care Team (Latest Contact Info) Description 08/03/2023 10:30 AM [facility] Anticoagulation Pharmacy, [place] [address] [place] [address] [facility] [address] [place] [address] History of DVT (deep vein thrombosis)*; Chronic atrial fibrillation (HCC); Anticoagulation management encounter; residential current use of anticoagulant therapy Allergies Active [...] directed. Change every 10 days. Supplied by [facility]: [phone] 0 Active Dexcom G6 Transmitter Use as directed. Change every 90 days. Supplied by [facility]: [phone] Active Dexcom G6 Hearing Stenographer Device Use as directed. Supplied by [facility]: [phone] Active Fluticasone Propionate 50 MCG/ACT Nasal [...] Warfarin Sodium 5 MG Oral Tablet (Coumadin)Indicatio ns:residential current use of anticoagulant therapy,Deep vein thrombosis [...] artery disease of n ative artery of [place] heart with stable angina pectoris 12/08/2020 History [...] Per Lipid Taxonomy. Cervical spinal stenosis 08/21/2008 residential current use of anticoagulant therapy 0 05/03/2005 [...] of this encounter Progress Notes * Isaac Osei [facility] - 08/03/2023 9:57 AM EST Images from the original note were not included. Medication Therapy Disease Management - Anticoagulation Patient: Graciela Mobley | : 1950 Subjective Patient-Reported Symptoms: Patient Findings Negatives: Signs/symptoms of thrombosis, Signs/symptoms of bleeding, Change in health, Change in alcohol use, Change in activity, Upcoming invasive procedure, Missed doses, Extra doses, Change in medications, Change in diet/appetite, Bruising Objective Current Warfarin Dose As of 08/03/2023 Warfarin maintenance plan: 5 mg (5 mg x 1) every day INR Result As of 08/03/2023 INR goal: 2.0-3.0 INR used for dosin.7 (08/03/2023) Assessment & Plan Warfarin Plan As of 08/03/2023 Full warfarin instructions: 08/03: 7.5 mg; Otherwise 5 mg every day Next INR check: 08/31/2023 Repeat PT/INR in 4 week(s) Weekly dose: not changed Additional Dosing Information: Isaac Osei [facility] Clinical Pharmacist 08/03/2023, 9:57 AM documented in this encounter Plan of Treatment Upcoming Encounters Date Type Department Care Team (Latest Contact Info) Description 08/07/2023 10:30 AM EST Office Visit Podiatry [address] [place] [address] Kenny Archibald DPM [facility] [place] [address] 08/31/2023 10:00 AM EST Anticoagulation Pharmacy, [address] [address] [place], [facility] [address] [place] [address], [place] [address] 09/18/2023 8:30 AM EST Hospital Encounter ENDO OSSC, Endoscopy Room [facility] [address] [place], [place] [address] Anselmo Sung MD [address] [place] [address] 09/18/2023 8:30 AM EST - 09/18/2023 9:00 AM EST Surgery ENDO OSS, Endoscopy Room [facility] [address] [place] [phone] Anselmo Sung MD [address] [place] [address] COLONOSCOPY FLEXIBLE PROXIMAL DIAGNOSTIC 09/28/2023 2:30 PM EST Anticoagulation Pharmacy, [place] [address] [facility], [place] [address] [facility] [address] [facility], [place] [address] 09/28/2023 2:40 PM EST Pharmacy Pharmacy, [place] [address] [facility], [place] [address] [facility] [address] [facility], [place] [address] 10/18/2023 9:00 AM EDT Office Visit Cardiology, [facility] [address] [place] [address] Nesha Denney CRNP [address] [place] [address] 01/03/2024 1:00 PM EDT Office Visit Family [facility], [place] [address] [place] [phone] Natalia Heller PA-C [address] [place] [address] Scheduled Procedures Name Priority Associated Diagnoses Date/Ti [...] D LEVEL ONCE IN A LIFETIME-USE SMARTSET# 37961 Completed 06/18/2020, 07/25/2019, 05/20/2015, Additional history exists LUNG CANCER SCREENING - USE SMARTSET 52345 Completed 12/22/2022, 12/09/2021, 12/24/2020, Additional history exists Influenza Vaccine (FLU shot) Completed , 05/08/2022, 06/18/2020, Additional history exists GARDASIL-HPV IMMUNIZATION SERIES Aged Out No longer eligible based on patient's age to complete this topic MENINGOCOCCAL (MENACTRA/MENVEO) Aged Out No longer eligible based on patient's age to complete this topic documented as of this encounter Medical Devices Implanted Type Area Repair Electric Motor Assembler Device Identifier Shelf Expiration Date Model / Serial / Lot Graft Cervical 6x8 [id number] - [id number] Implanted:Qt y: 2 on 08/21/2008 at OR [facility] [place] Tissue - Human Spine Cervical [employer] [id number] / / 14 Mm Variable Rescue Implanted:Qt y: 2 on 08/21/2008 at OR [facility] [place] N/A: Spine Cervical [id number] / / Description:14 mm variable r escue Screw 3.5x14 Mntr Fa [id number] - [id number] Implanted:Qt y: 10 on 07/13/2010 at OR [facility] N/A: Spine Cervical JN[place] : [employer] [id number] / / documented as of this encounter Procedures Procedure Name Priority Date/Time Associated Diagnosis Comments INR FINGERSTICK, POINT OF CARE STAT 08/03/2023 10:05 AM EST History of DVT (deep vein thrombosis) Chronic atrial fibrillation (HCC) Anticoagulation management encounter residential current use of anticoagulant therapy documented in this encounter Results * INR FINGERSTICK, POINT OF CARE (08/03/2023 10:05 AM EST) Fingerstick INR 1.7 INR 12:09 PM EST [facility]- Blood 08/03/2023 10:0 5 AM EST 08/03/2023 12:09 PM EST Narrative [facility]- - 08/03/2023 12:09 PM EST Therapeutic ranges for non-operative patients: Prophylaxsis/treatment of DVT: (Range:2.0-3.0) Treatment of pulmonary embolism:(Range:2.0-3.0) Prevention of systemic embolism from: -tissue heart valves -acute myocardial infarction -valvular heart disease -atrial fibrillation (Range: 2.0-3.0) Mechanical prosthetic valves: (Range: 2.5-3.5) Shanthi Franks [facility] POINT OF CARE TEST DOCKED DEVICE UNSOLICITED RESULTS [facility] [address] [place] [address] documented in this encounter Visit Diagnoses Diagnosis History of DVT (deep vein thrombosis)- Primary Personal history of venous thrombosis and embolism Chronic atrial fibrillation (HCC) Atrial fibrillation Anticoagulation management encounter Encounter for therapeutic drug monitoring residential current use of anticoagulant therapy Encounter for colonoscopy due to history of [...] the patient have Health Care Power of Sanitary Landfill Supervisor? No Full Code 07/13/2010 12:29 PM 07/17/2010 4:03 PM Thi s order reflects the patients wishes and were consensually agreed upon. Question Answer Comments Discussion of Advance Directives occurred with: Not Discussed Does the patient have a Living Will? No Does the patient have Health Care Power of Sanitary Landfill Supervisor? No Full Code 01/07/2010 6:23 AM 01/07/2010 2:05 PM This or emi reflects the patients wishes and were consensually agreed upon. Question Answer Comments Discussion of Advance Directives occurred with: Patient/Family Does the patient have a Living Will? No Does the patient have Health Care Power of Sanitary Landfill Supervisor? No Full Code 10/15/2009 7:12 AM 10/15/2009 9:26 PM This order reflects the patients wishes and were consensually agreed upon. Care Teams Order Caller Relationship Specialty Start Date End Date Alfa Jaramillo MD [address] [place] [address] PCP - General 05/06/00 documented as of this encounter
--- OUTSIDE RECORDS SUMMARY | 2023-11-15 18:41 | External Medical Summary | Summary of Care ---
Author Name Unknown Organization [facility] Address [address] [place] [address] Phone [phone] Care Team Providers Care Parking Assistant Name Role Phone Alfa Jaramillo MD Primary Care Provider [phone]- [phone] Encounter Details Date Type Department Care Team (Late st Contact Info) Description 07/20/2023 Telephone [facility] [address] [place] [address] Alfa Jaramillo MD [address] [place] [address] Allergies Active Allergy Reactions Criticality [...] directed. Change every 10 days. Supplied by [employer]: [phone] Active Dexcom G6 Transmitter Use as directed. Change every 90 days. Supplied by [employer]: [phone] 0 Active Dexcom G6 Housekeeping Laundry Worker Device Use as directed. 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 Up [...] artery disease of n ative artery of [place] heart with stable angina pectoris 12/08/2020 [...] needs signed by pcp, or placed through [employer]. Rajesh Still D, DELANEY Clinical Pharmacist 08/07/2023, [...] we would have to put it through [employer]. I hope this helps. * Telephone Encounter [...] patient has Medicare this need sent through [employer]. Rajesh Still, DELANEY Clinical Pharmacist 07/23/2023, 8:21 AM * Telephone Encounter - Natlaia Heller PA-C - 07/23/2023 8:02 AM EST [...] Description 08/31/2023 10:00 AM EST Anticoagulation Pharmacy, [place] [address] [place] [address] [facility] [address] [place] [address] 09/18/2023 8:30 AM EST Hospital Encounter ENDO OSSC, Endoscopy Room [facility] [address] [place] [phone] Anselmo Sung MD [address] [place] [address] 09/18/2023 8:30 AM EST - 09/18/2023 9:00 AM EST Surgery ENDO [facility], Endoscopy Room [facility] [address] [place] [address] Anselmo Sung MD [address] [place] [address] COLONOSCOPY FLEXIBLE PROXIMAL DIAGNOSTIC 09/28/2023 2:30 PM EST [facility], [place] [address] [address] [facility] [address] [facility] [address] 09/28/2023 2:40 PM EST Pharmacy Pharmacy, [place] [address] [address] [facility] [address] [facility] [address] 10/18/2023 9:00 AM EDT Office Visit Cardiology, [facility] [address] [place] [address] Nesha Denney CRNP [address] [place] [address] 01/03/2024 1:00 PM EDT Office Visit Family Practice, [place] [address] [address] Natalia Heller PA-C [address] [facility] [address] Scheduled Procedures Name Priority Associated Diagnoses Date/Ti [...] D LEVEL ONCE IN A LIFETIME-USE SMARTSET# 50225 Completed 06/18/2020, 07/25/2019, 05/20/2015, Additional history exists LUNG CANCER SCREENING - USE SMARTSET 12624 Completed 12/22/2022, 12/09/2021, 12/24/2020, Additional history exists Influenza Vaccine (FLU shot) Completed , 05/08/2022, 06/18/2020, Additional history exists GARDASIL-HPV IMMUNIZATION SERIES Aged Out No longer eligible based on patient's age to complete this topic MENINGOCOCCAL (MENACTRA/MENVEO) Aged Out No longer eligible based on patient's age to complete this topic documented as of this encounter Medical Devices Implanted Type Area Afloat Cryptologic Manager Device Identifier Shelf Expiration Date Model / Serial / Lot Graft Cervical 6x8 [id number] - [id number] Implanted:Qt y: 2 on 08/21/2008 [place] [facility] [place] - Human Spine Cervical [employer] [id number] / / 14 Mm Variable Rescue Implanted:Qt y: 2 on 08/21/2008 [place] [facility] [place] N/A: Spine Cervical [id number] / / Description:14 mm variable r escue Screw 3.5x14 Mntr Fa [id number] - [id number] Implanted:Qt y: 10 on 07/13/2010 at [place] [facility] [place] N/A: Spine Cervical JN[place] : [employer] [id number] / / documented as of this encounter [...] the patient have Health Care Power of Api Product Manager? No Full Code 07/13/2010 12:29 PM 07/17/2010 4:03 PM Thi s order reflects the patients wishes and were consensually agreed upon. Question Answer Comments Discussion of Advance Directives occurred with: Not Discussed Does the patient have a Living Will? No Does the patient have Health Care Power of Api Product Manager? No Full Code 01/07/2010 6:23 AM 01/07/2010 2:05 PM This or emi reflects the patients wishes and were consensually agreed upon. Question Answer Comments Discussion of Advance Directives occurred with: Patient/Family Does the patient have a Living Will? No Does the patient have Health Care Power of Api Product Manager? No Full Code 10/15/2009 7:12 AM 10/15/2009 9:26 PM This order reflects the patients wishes and were consensually agreed upon. Care Teams Parking Assistant Relationship Specialty Start Date End Date Alfa Jaramillo MD [address] [place] [address] PCP - General 05/06/00 documented as of this encounter
--- OUTSIDE RECORDS SUMMARY | 2023-11-15 18:42 | External Medical Summary | Summary of Care ---
Author Name Unknown Organization [facility] Address [address] [facility] [place] [address] Phone [phone] Care Team Providers Care Ticket Collector Or Usher Name Role Phone Alfa Jaramillo MD Primary Care Provider +1- [phone] Reason for Visit * Reason Onset Date Comments Fax 07/24/2023 Encounter Details Date Type Department Care Team (Late st Contact Info) Description 07/24/2023 Telephone [facility] [address] [place] [address] Alfa Jaramillo MD [address] [place] [address] Fax Allergies Active Allergy Reactions Criticality Noted Date Comments Alendronate Sodium 06/24/2012 Burning sensation and difficulty breathing Proton Pump Inhibitors Hives 02/20/2002 nexium documented as of this encounter (statuses as of 07/31/2023) Medications Medication Sig Dispensed Refills Start Date [...] directed. Change every 10 days. Supplied by [employer]: [phone] 0 Active Dexcom G6 Transmitter Use as directed. Change every 90 days. Supplied by [employer]: [phone] 0 Active Dexcom G6 Commissioner Of Relocation Services Device Use as directed. Supplied by [employer]: [phone] Active Fluticasone Propionate 50 MCG/ACT Nasal Suspension (Flonase)Indications :Chronic rhinitis Administer 2 Sprays into each nostril in the morning. 16 g 1 11/01/2022 Active Pregabalin 150 MG Oral Capsule (Lyrica)Indications: Diabetic polyneuropathy associated with type 1 diabetes mellitus (HCC) TAKE ONE CAPSULE BY MOUTH TWICE A DAY 180 Capsule 1 01/11/2023 3 Active Isosorbide Mononitrate ER 60 MG [...] 1 causing neurological disease, not at goal ([facility]) TAKE ONE TABLET BY MOUTH TWICE A DAY WITH FOOD 180 Tablet 3 11/16/2022 4 Active Metoprolol Succinate ER 50 MG Oral Tablet Extended Release 24 Hour (toPROL XL) TAKE ONE TABLET BY MOUTH TWICE A DAY 180 Tablet 3 11/16/2022 4 Active Warfarin Sodium 5 MG Oral Tablet (Coumadin)Indication s:shelter current use of anticoagulant therapy,Deep vein thrombosis (DVT) ([facility]) TAKE ONE TABLET TO ONE AND ONE-HALF TABLET BY MOUTH EVERY DAY DIRECTED BY [facility] 135 Tablet 3 08/12/2022 4 Active Insulin Aspart 100 UNIT/ML Injection Solution (NovoLOG)Indications :Type 2 diabetes mellitus with foot ulcer, with long-term current use of insulin ([facility]) Use with insulin pump. Up to [...] as of this encounter (statuses as of 07/31/2023) Active Problems Problem Noted Date Diagnosed Date Type 2 diabetes mellitus with foot ulcer (CODE) 09/19/2022 Gastro-esophageal reflux disease without esophag itis 03/27/2022 Major depressive disorder, recurrent, unspecifie d 02/10/2021 DM (diabetes mellitus) type II, controlled, with peripheral vascular disorder 12/08/2020 Coronary artery disease of n ative artery of [place] heart with stable angina pectoris 12/08/2020 History [...] Per Lipid Taxonomy. 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 Minimed 630G pump. Gianni Mccall RPh, CACP, CDE Clinical Pharmacist [facility] 07/31/2023, 10:15 AM * Telephone Encounter - Liz Mena LPN - 07/31/2023 9:29 AM EST I think this can be with with MTM. MTM are you able to help with this? * Telephone Encounter - Gabby Peñaloza OSA - 07/31/2023 9:11 AM EST I am working Lisa's box. Is this something a provider needs to do? * Telephone Encounter - Rosie Glasgow, SHAKIRA - 07/27/2023 3:34 PM EST [employer] follow up on documents sent below. Please see previous message. Thank you. * Telephone Encounter - Stanley Kaye, SHAKIRA - 07/24/2023 4:14 PM EST Received a call asking if fax was received by office. Name/Company sending fax: Jose from [employer] What fax is pertaining to: Stmt of Medical necessity Date(s) they sent request: 07/24 Verified fax number they are sending to is correct (Y or N): Y Callback Number for the clinic to call to verified if fax was received: [phone] Ext [phone] Please add pt to the ow Health Portal documented in this encounter Plan of Treatment Upcoming Encounters Date Type Department Care Team (Latest Contact Info) Description 08/03/2023 10:00 AM EST Office Visit Pharmacy, [place] [address] [place] [address] [facility] [address] [place] [address] 08/03/2023 10:30 AM EST Anticoagulation Pharmacy, [place] [address] [place] [address] [facility] [address] [place] [address] 08/07/2023 10:30 AM EST Office Visit Podiatry [address] [place] [phone] Kenny Archibald, [address] [address] 09/18/2023 8:30 AM EST Hospital Encounter ENDO OSSC, Endoscopy Room [facility] [address] [place] [phone] Anselmo Sung MD [address] [place] [id number] 09/18/2023 8:30 AM EST - 09/18/2023 9:00 AM EST Surgery ENDO OSSC, Endoscopy Room [facility] [address] [place] [phone] Anselmo Sung MD [address] [place] [address] COLONOSCOPY FLEXIBLE PROXIMAL DIAGNOSTIC 10/18/2023 9:00 AM EDT Office Visit Cardiology, [facility] [address] [facility] [place] [address] Nesha Denney CRNP [address] [place] [id number] 01/03/2024 1:00 PM EDT Office Visit [facility] [address] [place] [phone] Natalia Heller PA-C [address] [place] [address] Scheduled Procedures Name Priority Associated Diagnoses Date/Ti [...] 04/18/2021, Additional history exists HbA1c 01/03/2024 07/05/2023, 05/, 09/19/2022, Additional history exists O2 ASSESSMENT COMPLETED [...] D LEVEL ONCE IN A LIFETIME-USE SMARTSET# 49800 Completed 06/18/2020, 07/25/2019, 05/20/2015, Additional history exists LUNG CANCER SCREENING - USE SMARTSET 22433 Completed 12/22/2022, 12/09/2021, 12/24/2020, Additional history exists Influenza Vaccine (FLU shot) Completed , 05/08/2022, 06/18/2020, Additional history exists GARDASIL-HPV IMMUNIZATION SERIES Aged Out No longer eligible based on patient's age to complete this topic MENINGOCOCCAL (MENACTRA/MENVEO) Aged Out No longer eligible based on patient's age to complete this topic documented as of this encounter Medical Devices Implanted Type Area Event Marketing Manager Device Identifier Shelf Expiration Date Model / Serial / Lot Graft Cervical 6x8 [id number] - [id number] Implanted:Qt y: 2 on 08/21/2008 at OR [facility] [place] Tissue - Human Spine Cervical [employer] [id number] / / 14 Mm Variable Rescue Implanted:Qt y: 2 on 08/21/2008 at OR [facility] [place] N/A: Spine Cervical [id number] / / Description:14 mm variable r escue Screw 3.5x14 Mntr Fa [id number] - [id number] Implanted:Qt y: 10 on 07/13/2010 at OR [facility] [place] N/A: Spine Cervical JN[place] : [employer] [id number] / / documented as of this encounter [...] the patient have Health Care Power of Training Personnel Supervisor? No Full Code 07/13/2010 12:29 PM 07/17/2010 4:03 PM Thi s order reflects the patients wishes and were consensually agreed upon. Question Answer Comments Discussion of Advance Directives occurred with: Not Discussed Does the patient have a Living Will? No Does the patient have Health Care Power of Training Personnel Supervisor? No Full Code 01/07/2010 6:23 AM 01/07/2010 2:05 PM This or emi reflects the patients wishes and were consensually agreed upon. Question Answer Comments Discussion of Advance Directives occurred with: Patient/Family Does the patient have a Living Will? No Does the patient have Health Care Power of Training Personnel Supervisor? No Full Code 10/15/2009 7:12 AM 10/15/2009 9:26 PM This order reflects the patients wishes and were consensually agreed upon. Care Teams Ticket Collector Or Usher Relationship Specialty Start Date End Date Alfa Jaramillo MD [address] [place] [address] PCP - General 05/06/00 documented as of this encounter
--- OUTSIDE RECORDS SUMMARY | 2023-11-15 18:42 | External Medical Summary | Summary of Care ---
Author Name Unknown Organization [facility] Address [address] [facility] [place] [address] Phone [phone] Care Team Providers Care Water Filterer Name Role Phone Alfa Jaramillo MD Primary Care Provider [phone] Reason for Referral * Evaluate & Treat - Unlimited Visits (Within 30 days (routine)) - Authorized Specialty Diagnoses / Procedures Referred By Contilia t Referred To Contact Optometry Diagnoses Type 2 diabetes mellitus with foot ulcer (CODE) ([facility]) Natalia Hampton PA-C [address] [place] [address] Lacie Cotton, OD [address] [place] [address] Referral ID Status Reason Start Date Expiration Date Visits Requested Visits Authorized [id number] Authorized Specialty Services Required 3 999 999 Question Answer Referral Priority Within 30 days (routine) Where should this appointment be scheduled? [facility] Referring to: [facility] will not schedule outside referrals Acknowledge Referring for: Optometry Conditions Optometry Conditions Diabetic Eye Exam without Retinopathy Reason for Visit * Reason Comments Hospital Follow-Up Pt presents for 3 mo nt follow up.Pt states she fell once since last visit. 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 (HCC); COPD, moderate (HCC); Chronic atrial fibrillation (HCC) Allergies Active Allergy Reactions Criticality Noted Date Comments Alendronate Sodium 06/24/2012 Burning sensation and difficulty breathing Proton Pump Inhibitors Hives 02/20/2002 nexium documented as of this encounter (statuses as of 07/05/2023) Medications Medication Sig Dispensed Refills Start Date [...] 1 causing neurological disease, not at goal ([facility]) Use twice per day with lantus inject, and 3 times per day for sliding scale 5 Box 3 05/10/2012 Active ONETOUCH ULTRA BLUE STRPIndications:DM type 2, goal A1c below 7 Use to check blood sugar up to 4 times daily 3 Box 3 01/05/2014 Active albuterol (PROAIR HFA) 108 (90 BASE) MCG/ACT inhalerIndications:B montserrattis, complicated Inhale 2 Puffs by mouth 4 [...] directed. Change every 10 days. Supplied by [employer]: [phone] 0 Active Dexcom G6 Transmitter Use as directed. Change every 90 days. Supplied by [employer]: [phone] 0 Active [employer] G6 State Game Protector Device Use as directed. 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 of anticoagulant therapy 0 05/03/2005 documented as of this encounter (statuses as of 07/05/2023) Resolved Problems Problem Noted Date Diagnosed Date [...] 6 months Hypopotassemia 08/22/2008 07/17/2011 [facility] 08/20/2008 07/17/2011 Statin intolerance [...] as of this encounter (statuses as of 07/05/2023) Immunizations Name Administration Dates Next Due COVID-19 mRNA, LNP-s, No Pre serve, 2-Dose Series (Moderna) 10/13/2020,09/15/2020 COVID-19, mRNA, LNP-s, PF, B ooster, 100mcg/0.5mg (Moderna) 07/20/2021 Covid-19, Mrna, Lnp-s, Pf, B ivalent, 30 Mcg, IM, 12 yrs and above (Pfizer) 05/08/2022 Pneumococcal Conjugate Vacc, 13 Valent (Prevnar) 01/20/2016 Pneumococcal Polysaccharide PPV23 (Pneumovax) 01/15/2015,09/18/2006 SEASONAL INFLUENZA, PF, 6 M & Above, IM , (FLULAVAL or FLUZONE) 05/08/2019,04/09/2018,06/21/2017 Season Influenza, Quad, PF, Adjuvanted, 65+ Yrs, IM (FLUAD) 06/18/2020 Seasonal Influenza Virus Vac cine, Unspecified Formulation 05/08/2019,04/09/2018,06/21/2017 Seasonal Influenza, Quadriva lent Hd (Fluzone [...] Sign Reading Time Taken Comments Blood Pressure 122/80 07/05/2023 1:02 PM EST Pulse 100 07/05/2023 1:02 PM EST Temperature 36.3 C (97.3 F) 07/05/2023 1:02 PM ES T Respiratory Rate 16 07/05/2023 1:02 PM EST Oxygen Saturation - - Inhaled Oxygen Concentration - - Weight 88.2 kg (194 lb 6.4 oz) 07/05/2023 1:02 P M EST Height - - Body Mass Index 32.35 04/04/2023 10:24 AM EDT documented in this encounter Functional [...] as of this encounter Progress Notes * Natalia Hampton PA-C - 07/05/2023 1:05 PM EST Images from the original note were not included. History of Present Illness Graciela Mobley is a 73 year old female that presents for Hospital Follow-Up (Pt presents for 3 month follow up./Pt states she fell once since last visit. ) Here for reg return Had a fall since last in - she uses a cane in the house but her R knee gives out on her a lot. She had this replaced and it is just not stable. She does not use a wheelchair in the house. Tdap, flu and pc vaccines all utd Current with podiatry Has colo scheduled for September of next year. Cardiology wanted her to wait. She is current with them,. Labs due to check dig level. Due for eye exam - sees Dr Lacie Cotton here in [place]. Hemoglobin AIC Results: Lab Results Component Value Date/Time HEMOGLOBIN A1C 7.7 (H) 07/09/1996 11:15 AM HEMOGLOBIN A1C - [facility] 9.9 (H) 01/02/2023 02:10 PM HEMOGLOBIN A1C - [facility] 10.2 (H) 09/19/2022 08:19 AM HEMOGLOBIN A1C - [facility] 12.5 (H) 03/20/2022 09:35 AM HEMOGLOBIN A1C - [facility] 10.6 (H) 06/18/2020 09:03 AM HEMOGLOBIN A1C - [facility] 13.2 (H) 07/25/2019 09:28 AM HEMOGLOBIN A1C - [facility] 13.3 (H) 02/18/2019 02:17 PM Past Medical History: Diagnosis Date Asthma with [...] LDL below 100 07/15/2009 Per Lipid Taxonomy. exterminator termite (current) use of anticoagulants Major depressive disorder, single episode, unspecified 12/08/2020 More specified/recent code listed on PL Myalgia and myositis Osteoarthrosis, unspecified whether generalized or localized, lower leg Other B-complex deficiencies Phlebitis and thrombophlebitis of other deep vessels of lower extremities Right leg x 2 Extensive ROS Constitutional (f/c/wt/vision/hearing): Negative and wears glasses, eye exam is due Resp (cough/sob/belcher): + sob/belcher - saw cardiology CV (cp/palp/fluttering/diaphoresis/belcher/pnd):Negative GI (n/v/d/hrtburn): Negative Endo (hair/cold or heat intol/ 3 p's): Negative Neuro (shaking/weak/fatigu/parasthesi/): Negative Skin (rash/easy bruis/xerosis): Negative Psy (si/hi/halluc/): Negative (nocturia/hesit/drib/sexual review): Negative Lymph (swollen glands/b sx's/: Negative Physical Exam Vitals: 07/05/23 1302 Temp: 36.3 C (97.3 F) Pulse: 100 Resp: 16 BP: 122/80 BP Readings from Last 3 Encounters: 07/05/23 122/80 05/18/23 130/74 05/04/23 138/78 Wt Readings from Last 3 Encounters: 07/05/23 88.2 kg (194 lb 6.4 oz) 05/18/23 90.6 kg (199 lb 12 oz) 05/04/23 90.2 kg (198 lb 14.4 oz) BMI Readings from Last 3 Encounters: 07/05/23 32.35 kg/m 05/18/23 33.24 kg/m 05/04/23 33.10 kg/m Ht Readings from Last 3 Encounters: 04/04/23 1.651 m (5' 5") 09/19/22 1.651 m (5' 5") 03/27/22 1.651 m (5' 5") General: alert, healthy, and no distress Head: Normocephalic, No masses, lesions, tenderness or abnormalities Eye Exam: PERRLA, extraocular movements intact, conjunctiva are pink and non- injected, sclera clear Ears: External ears normal, Canals clear, TM's Normal Nose: no mucosal erythema, no mucosal edema, no purulent discharge Oropharynx: no exudate, no erythema, lips, buccal mucosa, and tongue normal, and mucous membranes are moist Neck: supple, no adenopathy, no bruits, thyroid normal size, non-tender, without nodularity Heart: regular rate & rhythm, no murmur, no gallops, S-1 normal, and S-2 normal Lungs: chest symmetric with normal AP diameter, no chest deformities noted, no chest wall tenderness, lungs clear to auscultation Abdomen: abdomen soft, non-tender, normal bowel sounds, and no masses or organomegaly Back: back symmetric, no curvature, no costovertebral angle tenderness, range of motion is normal Extremities: less than 2 second capillary refill, no joint deformities, effusion, or inflammation Skin: skin color, texture, turgor are normal, no rashes or significant lesions Assessment and Plan Type 2 diabetes mellitus with foot ulcer (CODE) (HCC) (Primary) - DIABETIC EYE EXAM - ADULT/PEDS OPHTHALMOLOGY/OPTOMETRY REFERRAL OP Personal history of fall - she defers pt but is willing to start hep - printouts given Right leg weakness 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 | For: reg return | Check-out note: Rhona denney and karen hampton Fax eye referral to Dr Cotton Wrap-Up Rev cardiology note from 08/18/2022 Rev podiatry note 06/21/2023 Rev last lab work and last ov note Time: I spent a total of 40-54 minutes (exact time 45 mins) on the date of service in preparation, delivery, and documentation of the care provided to Graciela Mobley excluding any time spent in the performance of separately billed services. Natalia Hampton PA-C 07/05/2023 1:26 PM documented in this encounter Nursing Notes * Priscilla Lopez, MED ASSIST - 07/05/2023 1:02 PM EST The patient has been properly identified by confirmation of name and date of . Chief Complaint Patient presents with Hospital Follow-Up Pt presents for 3 month follow up. Pt states she fell once since last visit. documented in this encounter Plan of Treatment Upcoming Encounters Date Type Department Care Team (Latest Contact Info) Description 07/09/2023 10:45 AM EST Office Visit Podiatry, [facility] [address] [place] [address] Kenny Archibald, [facility] [address] [place] [address] 08/03/2023 10:00 AM EST Office Visit Pharmacy, [place] [address] [facility] [place] [address] [facility] [address] [place] [facility] [place] [address] 08/03/2023 10:30 AM EST Anticoagulation Pharmacy, [place] [address] [facility] [place] [facility] [address] [facility] [address] [facility] [place] [address] 09/18/2023 8:30 AM EST Hospital Encounter ENDO OSSC, Endoscopy Room [facility] [address] [place] [id number] Anselmo Sung MD [address] [place] [address] 09/18/2023 8:30 AM EST - 09/18/2023 9:00 AM EST Surgery ENDO OSSC, Endoscopy Room [facility] [address] [place] [phone] Anselmo Sung MD [address] [place] [address] COLONOSCOPY FLEXIBLE PROXIMAL DIAGNOSTIC 10/18/2023 9:00 AM EDT Office Visit Cardiology, [facility] [address] [place] [address] Nesha Denney CRNP [address] [place] [address] 01/03/2024 1:00 PM EDT Office Visit [facility] [address] [place] [phone] Natalia Hampton PA-C [address] [place] [address] Scheduled Procedures Name Priority Associated Diagnoses Date/Ti me COLONOSCOPY FLEXIBLE PROXIMAL DIAGNOSTIC Recall Encounter for colonoscopy due to history of adenomatous colonic polyps 09/18/2023 8:30 AM EST Scheduled Referrals Name Type Priority Associated Diagnoses Orde r Schedule ADULT/PEDS OPHTHALMOLOGY/OPTOM ETRY REFERRAL OP Referral Within 30 days (routine) Type 2 diabetes mellitus with foot ulcer (CODE) (HCC) Ordered: 07/05/2023 Health Maintenance Due Date Last Done Comments [...] 2023 05/08/2022, 07/20/2021, 10/13/2020, Additional history exists HbA1c 07/05/2023 01/02/2023, 09/06, 03/20/2022, Additional history exists DIG LEVEL FOR MEDICATION MONITORING YEARLY 09/19/2023 09/19/2022, 03/20/2022, 12/08/2020, Additional history exists GFR 09/19/2023 09/19/2022, 03/06, 02/10/2021, Additional history exists Albumin/Creatinine Ratio 01/03/2024 023, 09/19/2022, 04/18/2021, Additional history exists O2 ASSESSMENT COMPLETED IN PAST YEAR FOR COPD 05/04/2024 05/04/2023 Mammogram 06/07/2024 06/07/2023, 08/2021, 05/26/2021, Additional history exists DTaP,Tdap,and Td Vaccines (2 - Td or Tdap) 09/15/2024 09/15/2014, 07/15/2008, 02/09/1998 DXA Scan 02/19/2025 02/19/2023, 02/2020, 11/02/2017, Additional history exists Pneumococcal Vaccine: 65+ Years Completed 01/20/2016, 01/15/2015, 09/18/2006, Additional history exists VITAMIN D LEVEL ONCE IN A LIFETIME-USE SMARTSET# [id number] Completed 06/18/2020, 07/25/2019, 05/20/2015, Additional history exists LUNG CANCER SCREENING - USE SMARTSET 23654 Completed 12/22/2022, 12/09/2021, 12/24/2020, Additional history exists Influenza Vaccine (FLU shot) Completed , 05/08/2022, 06/18/2020, Additional history exists GARDASIL-HPV IMMUNIZATION SERIES Aged Out No longer eligible based on patient's age to complete this topic MENINGOCOCCAL (MENACTRA/MENVEO) Aged Out No longer eligible based on patient's age to complete this topic documented as of this encounter Medical Devices Implanted Type [employer] Device Identifier Shelf Expiration Date Model / Serial / Lot Graft Cervical 6x8 [id number] - [id number] Implanted:Qt y: 2 on 08/21/2008 at OR [facility] Tissue - Human Spine Cervical [employer] [id number] / / 14 Mm Variable Rescue Implanted:Qt y: 2 on 08/21/2008 at OR [facility] N/A: Spine Cervical [id number] / / Description:14 mm variable r escue Screw 3.5x14 Mntr Fa [id number] - [id number] Implanted:Qt y: 10 on 07/13/2010 at OR [facility] N/A: Spine Cervical JN[place] : [employer] [id number] / / documented as of this encounter Visit Diagnoses Diagnosis Type 2 diabetes mellitus with foot ulcer (CODE) (HCC)- Primary Personal history of fall Right leg weakness Other musculoskeletal symptoms referable to limbs 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 No Full Code 07/13/2010 12:29 PM 07/17/2010 4:03 PM Thi s order reflects the patients wishes and were consensually agreed upon. Question Answer Comments Discussion of Advance Directives occurred with: Not Discussed Does the patient have a Living Will? No Does the patient have Health Care Power of Budget Clerk? No Full Code 01/07/2010 6:23 AM 01/07/2010 2:05 PM This or emi reflects the patients wishes and were consensually agreed upon. Question Answer Comments Discussion of Advance Directives occurred with: Patient/Family Does the patient have a Living Will? No Does the patient have Health Care Power of Budget Clerk? No Full Code 10/15/2009 7:12 AM 10/15/2009 9:26 PM This order reflects the patients wishes and were consensually agreed upon. Care Teams Water Filterer Relationship Specialty Start Date End Date Alfa Jaramillo MD [address] [facility] [place] [address] PCP - General 05/06/00 documented as of this encounter
--- OUTSIDE RECORDS SUMMARY | 2023-11-15 18:42 | External Medical Summary | Summary of Care ---
Author Name Unknown Organization [facility] Address [address] [facility] [facility] [address] Phone [phone] Care Team Providers Care Shredding Machine Knife Changer Name Role Phone Alfa Jaramillo MD Primary Care Provider +1- [phone] Reason for Visit * Reason Comments Dosage Adjustment In Person (Anticoag Cl inic) Diabetes Management Encounter Details Date Type Department Care Team (Late st Contact Info) Description 08/03/2023 10:00 AM EST Office Visit Pharmacy, [place] [address] [place] [address] [facility] [address] [place] [address] Type 2 diabetes mellitus with foot ulcer, [...] directed. Change every 10 days. Supplied by [employer]: [phone] 0 Active Dexcom G6 Transmitter Use as directed. Change every [address] [facility]: [phone] 0 Active Dexcom G6 Spout Liner Device Use as directed. Supplied by [facility]: [phone] Active Fluticasone Propionate 50 MCG/ACT Nasal [...] of anticoagulant therapy,Deep vein thrombosis (DVT) ([facility]) TAKE ONE TABLET TO ONE AND ONE-HALF TABLET BY MOUTH EVERY DAY DIRECTED BY [facility] 135 Tablet 3 08/12/2022 09/16/2023 Active Insulin Aspart 100 UNIT/ML Injection Solution (NovoLOG)Indication s:Type 2 diabetes mellitus with foot ulcer, with long-term current use of insulin ([facility]) Use with insulin pump. Up to [...] artery disease of n ative artery of [place] heart with stable angina pectoris 12/08/2020 History [...] Per Lipid Taxonomy. Cervical spinal stenosis 08/21/2008 long-term current use of anticoagulant therapy 0 05/03/2005 [...] this encounter Progress Notes * Isaac Osei, [facility] - 08/03/2023 9:59 AM EST Images from [...] weekly- Sundays GFR 80 as of 09/19/22 [facility] 630G Insulin Pump (Serial Number: [id number]) Infusion Set: Quick set Insulin: Novolog Basal [...] Never Patient Active Problem List Diagnosis Code long-term current use of anticoagulant therapy Z79.01 Cervical spinal stenosis M48.02 DYSLIPIDEMIA, GOAL LDL BELOW 100 E78.5 Senile osteoporosis M81.0 COPD, moderate ([facility]) J44.9 History of DVT (deep vein thrombosis) Z86.718 History of breast cancer Z85.3 B12 deficiency E53.8 Diabetic polyneuropathy associated with type 2 diabetes mellitus ([facility]) E11.42 Diabetic cataract, associated with type 1 diabetes mellitus ([facility]) E10.36 Type 2 diabetes mellitus with skin complication, with long-term current use of insulin ([facility]) E11.628, Z79.4 Chronic atrial fibrillation (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) Z89.411 History of ankle surgery Z98.890 DM (diabetes mellitus) type II, controlled, with peripheral vascular disorder ([facility]) E11.51 Coronary artery disease of [place] artery of [place] heart with stable angina pectoris ([facility]) I25.118 Major depressive disorder, recurrent, unspecified ([facility]) F33.9 Gastro-esophageal reflux disease without esophagitis K21.9 Type 2 diabetes mellitus with foot ulcer (CODE) ([facility]) E11.621 Review of patient's allergies indicates: [...] directed. Change every 10 days. Supplied by [employer]: [phone] Dexcom G6 Transmitter Use as directed. Change every 90 days. Supplied by [employer]: [phone] [employer] Software G6 Spout Liner Device Use as directed. Supplied by [employer]: [phone] Fluticasone Propionate 50 MCG/ACT Nasal Suspension (Flonase) [...] this visit. Objective: The ASCVD Risk score (Farrukh DK, et al., 2019) failed to calculate for the following reasons: The patient has a prior NC or stroke diagnosis Estimated body mass index is 32.35 kg/m as calculated from the following: Height as of 04/04/23: 1.651 m (5' 5"). Weight as of 07/05/23: 88.2 kg (194 lb 6.4 oz). BP Readings from Last 3 Encounters: 07/05/23 122/80 05/18/23 130/74 05/04/23 138/78 No components found for: "[id number]" No results found for: "MICROALBUMIN" Lab Results Component Value Date/Time LDL CHOLESTEROL (CALCULATED) - [facility] 01/02/2023 02:10 PM LDL CHOLESTEROL (CALCULATED) - [facility] 10/19/2017 09:32 AM LDL CHOLESTEROL (DIRECT MEASURE) - [facility] 93 12/08/2020 09:59 AM LDL CHOLESTEROL (DIRECT MEASURE) - [facility] 102 06/18/2020 09:03 AM LDL CHOLESTEROL (DIRECT MEASURE) - [facility] 47 01/05/2014 04:02 PM Lab Results Component [...] 09/19/22 [employer] 630G Insulin Pump (Serial Number: [id number]) Infusion Set: Quick set Insulin: Novolog Basal [...] to Clinic: 8 week(s) 08/31/[address] [facility] Clinical Pharmacist Medication Therapy Disease Management 08/03/2023, 10:00 AM documented in this encounter Plan of Treatment Upcoming Encounters Date Type Department Care Team (Latest Contact Info) Description 08/07/2023 10:30 AM EST Office Visit Podiatry [address] [place] [address] Kenny Archibald, JASMINE [address] [place] [address] 08/31/2023 10:00 AM EST Anticoagulation Pharmacy, [place] [address] [facility] [facility] [place] [address] [place], [facility] [address] [facility] [place] [address] 09/18/2023 8:30 AM EST Hospital Encounter ENDO [facility], Endoscopy Room [facility] [address] [place] [address] Anselmo Sung MD [address] [place] [address] 09/18/2023 8:30 AM EST - 09/18/2023 9:00 AM EST Surgery ENDO [facility], Endoscopy Room [facility] [address] [place] [address] Anselmo Sung MD [address] [place] [address] COLONOSCOPY FLEXIBLE PROXIMAL DIAGNOSTIC 09/28/2023 2:30 PM EST Anticoagulation Pharmacy, [place] [address] [facility] [place] [address] [facility] [address] [facility] [place] [address] 09/28/2023 2:40 PM EST Pharmacy Pharmacy, [place] [address] [facility] [place] [address] [place] [facility] [address] [facility] [place] [address] 10/18/2023 9:00 AM EDT Office Visit Cardiology, [facility] [address] [place] [address] Nesha Denney CRNP [address] [place] [address] 01/03/2024 1:00 PM EDT Office Visit [facility] [address] [facility] [place] [id number] Natalia Heller PA-C [address] [place] [address] Scheduled Procedures Name Priority Associated Diagnoses Date/Ti [...] D LEVEL ONCE IN A LIFETIME-USE SMARTSET# 11932 Completed 06/18/2020, 07/25/2019, 05/20/2015, Additional history exists LUNG CANCER SCREENING - USE SMARTSET 51207 Completed 12/22/2022, 12/09/2021, 12/24/2020, Additional history exists Influenza Vaccine (FLU shot) Completed , 05/08/2022, 06/18/2020, Additional history exists GARDASIL-HPV IMMUNIZATION SERIES Aged Out No longer eligible based on patient's age to complete this topic MENINGOCOCCAL (MENACTRA/MENVEO) Aged Out No longer eligible based on patient's age to complete this topic documented as of this encounter Medical Devices Implanted Type Area Dragger Device Identifier Shelf Expiration Date Model / Serial / Lot Graft Cervical 6x8 [id number] - [id number] Implanted:Qt y: 2 on 08/21/2008 at [place] [facility] Tissue - Human Spine Cervical [employer] [id number] / / 14 Mm Variable Rescue Implanted:Qt y: 2 on 08/21/2008 at OR [facility] N/A: Spine Cervical [id number] / / Description:14 mm variable r escue Screw 3.5x14 Mntr Fa [id number] - [id number] Implanted:Qt y: 10 on 07/13/2010 at [place] [facility] N/A: Spine Cervical JN[place] : [employer] [id number] / / documented as of this encounter [...] the patient have Health Care Power of Assembly Person? No Full Code 07/13/2010 12:29 PM 07/17/2010 4:03 PM Thi s order reflects the patients wishes and were consensually agreed upon. Question Answer Comments Discussion of Advance Directives occurred with: Not Discussed Does the patient have a Living Will? No Does the patient have Health Care Power of Assembly Person? No Full Code 01/07/2010 6:23 AM 01/07/2010 2:05 PM This or emi reflects the patients wishes and were consensually agreed upon. Question Answer Comments Discussion of Advance Directives occurred with: Patient/Family Does the patient have a Living Will? No Does the patient have Health Care Power of Assembly Person? No Full Code 10/15/2009 7:12 AM 10/15/2009 9:26 PM This order reflects the patients wishes and were consensually agreed upon. Care Teams Shredding Machine Knife Changer Relationship Specialty Start Date End Date Alfa Jaramillo MD [address] [place] [address] PCP - General 05/06/00 documented as of this encounter
--- OUTSIDE RECORDS SUMMARY | 2023-11-15 18:42 | External Medical Summary ---
Author Name Unknown Address Unknown Organization K01:[facility] - [address] [place] [address] Laboratory Report Ordering Provider Test Date Status MOE CARRANZA 07/05/2023 13:32:57 Final Recommended trough therapeut ic ranges:
0.5 to 0.8 for heart failure
0.5 to 1.1 for atrial fibrillation Observation Date Value Abnormality Reference (Units ) Status Digoxin 07/05/2023 13:32:57 1.1 0.5-1.1 (n g/mL) Final Performing Location [facility] - [address] [place] [address]
--- OUTSIDE RECORDS SUMMARY | 2023-11-15 18:42 | External Medical Summary | Summary of Care ---
Author Name Unknown Organization [facility] Address [address] [place] [address] Phone [phone] Care Team Providers Care Girls Swimming Coach Name Role Phone Alfa Jaramillo MD Primary Care Provider +1- [phone] Encounter Details Date Type Department Care Team (Late st Contact Info) Description 07/06/2023 Telephone Pharmacy, [address] [phone] [facility] [address] [place] [address] Allergies Active Allergy Reactions Criticality Noted Date Comments Alendronate Sodium 06/24/2012 Burning sensation and difficulty breathing Proton Pump Inhibitors Hives 02/20/2002 nexium documented as of this encounter (statuses as of 07/06/2023) Medications Medication Sig Dispensed Refills Start Date [...] 108 (90 BASE) MCG/ACT inhalerIndications:Jose Luis clemons, magda Inhale 2 Puffs by mouth 4 times [...] directed. Change every 10 days. Supplied by [employer]: [phone] 0 Active Dexcom G6 Transmitter Use as directed. Change every 90 days. Supplied by [employer]: [phone] 0 Active Dexcom G6 Commercial Kitchen Service Technician Device Use as directed. Supplied by [employer]: [phone] 0 Active Fluticasone Propionate 50 MCG/ACT Nasal [...] 1 causing neurological disease, not at goal ([facility]) TAKE ONE TABLET BY MOUTH TWICE A DAY WITH FOOD 180 Tablet 3 11/16/2022 4 Active Metoprolol Succinate ER 50 MG Oral Tablet Extended Release 24 Hour (toPROL XL) TAKE ONE TABLET BY MOUTH TWICE A DAY 180 Tablet 3 11/16/2022 4 Active Warfarin Sodium 5 MG Oral Tablet (Coumadin)Indication s:FDC current use of anticoagulant therapy,Deep vein thrombosis (DVT) ([facility]) TAKE ONE TABLET TO ONE AND ONE-HALF TABLET BY MOUTH EVERY DAY DIRECTED BY [facility] 135 Tablet 3 08/12/2022 4 Active Insulin Aspart 100 UNIT/ML Injection Solution (NovoLOG)Indications :Type 2 diabetes mellitus with foot ulcer, with long-term current use of insulin ([facility]) Use with insulin pump. Up to [...] as of this encounter (statuses as of 07/06/2023) Active Problems Problem Noted Date Diagnosed Date [...] Per Lipid Taxonomy. Cervical spinal stenosis 08/21/2008 oysterman current use of anticoagulant therapy 0 05/03/2005 documented as of this encounter (statuses as of 07/06/2023) Resolved Problems Problem Noted Date Diagnosed Date [...] as of this encounter (statuses as of 07/06/2023) Immunizations Name Administration Dates Next Due COVID-19 [...] Notes * Telephone Encounter - Isaac Osei RPh - 07/06/2023 8:24 AM EST Images from the original note were not included. Medication Therapy Disease Management - Anticoagulation Patient: Graciela Mobley | : 1950 Subjective Random INR drawn by lab, INR slightly elevated. Attempted to contact patient x3 with no answer and no voicemail. Recommended warfarin instructions below. Patient scheduled for next INR on 08/03/23 which is still appropriate at this time. Patient-Reported Symptoms: Objective Current Warfarin Dose As of 07/06/2023 Warfarin maintenance plan: 5 mg (5 mg x 1) every day INR Result As of 07/06/2023 INR goal: 2.0-3.0 INR used for dosin.8 (07/05/2023) Assessment & Plan Warfarin Plan As of 07/06/2023 Full warfarin instructions: 07/06: 2.5 mg; Otherwise 5 mg every day Next INR check: 08/03/2023 Repeat PT/INR in 4 week(s) Weekly dose: not changed Additional Dosing Information: Description Colonoscopy 05/24/23. Per chart review, patient was bridged at last one in 2020, but patient does not recall this. Discussed with patient, her most recent clot per her memory was in 1979 or so. Otherindication for anticoagulation is afib, CHADS: 4 (DM, CAD, age, sex). Will plan to reach out to PCPand cardiology for input on this once procedure date is closer. Isaac Osei RPh Clinical Pharmacist 07/06/2023, 8:26 AM documented in this encounter Plan of Treatment Upcoming Encounters Date Type Department Care Team (Latest Contact Info) Description 07/09/2023 10:45 AM EST Office Visit Podiatry, [address] [address] Kenny Archibald DPM [address] [place], [place] [phone] 08/03/2023 10:00 AM EST Office Visit Pharmacy, [place] [address] [facility], [place] [address] [facility] [address] [facility] [place] [address] 08/03/2023 10:30 AM EST Anticoagulation Pharmacy, [place] [address] [facility], [place] [address] [facility] [address] [facility], [place] [address] 09/18/2023 8:30 AM EST Hospital Encounter ENDO [facility], Endoscopy Room [facility] [address] [place] [phone] Anselmo Sung MD [address] [place] [address] 09/18/2023 8:30 AM EST - 09/18/2023 9:00 AM EST Surgery ENDO [facility], Endoscopy Room [facility] [address] [place] [phone] Anselmo Sung MD [address] [place] [address] COLONOSCOPY FLEXIBLE PROXIMAL DIAGNOSTIC 10/18/2023 9:00 AM EDT Office Visit Cardiology, [facility] [address] [place] [address] Nesha Denney CRNP [address] [place] [address] 01/03/2024 1:00 PM EDT Office Visit Family [facility], [place] [address] [facility], [place] [address] Natalia Heller PA-C [address] [place], [place] [phone] Scheduled Procedures Name Priority Associated Diagnoses Date/Ti [...] 07/20/2021, 10/13/2020, Additional history exists Albumin/Creatinine Ratio 01/03/20242 023, 09/19/2022, 04/18/2021, Additional history exists HbA1c [...] D LEVEL ONCE IN A LIFETIME-USE SMARTSET# 57576 Completed 06/18/2020, 07/25/2019, 05/20/2015, Additional history exists LUNG CANCER SCREENING - USE SMARTSET 08280 Completed 12/22/2022, 12/09/2021, 12/24/2020, Additional history exists Influenza Vaccine (FLU shot) Completed , 05/08/2022, 06/18/2020, Additional history exists GARDASIL-HPV IMMUNIZATION SERIES Aged Out No longer eligible based on patient's age to complete this topic MENINGOCOCCAL (MENACTRA/MENVEO) Aged Out No longer eligible based on patient's age to complete this topic documented as of this encounter Medical Devices Implanted Type Area Ear Specialist Device Identifier Shelf Expiration Date Model / Serial / Lot Graft Cervical 6x8 [id number] - [id number] Implanted:Qt y: 2 on 08/21/2008 at [place] [facility] Tissue - Human Spine Cervical [employer] [id number] / / 14 Mm Variable Rescue Implanted:Qt y: 2 on 08/21/2008 at [place] [facility] N/A: Spine Cervical [id number] / / Description:14 mm variable r escue Screw 3.5x14 Mntr Fa [id number] - [id number] Implanted:Qt y: 10 on 07/13/2010 at [place] [facility] N/A: Spine Cervical JN[employer] : [employer] [id number] / / documented as of this encounter Visit Diagnoses Diagnosis History of DVT (deep vein thrombosis)- Primary Personal history of venous thrombosis and embolism Chronic atrial fibrillation (HCC) Atrial fibrillation Encounter [...] patient have Health Care Power of Nail Professional? No Full Code 07/13/2010 12:29 PM 07/17/2010 4:03 PM Thi s order reflects the patients wishes and were consensually agreed upon. Question Answer Comments Discussion of Advance Directives occurred with: Not Discussed Does the patient have a Living Will? No Does the patient have Health Care Power of Nail Professional? No Full Code 01/07/2010 6:23 AM 01/07/2010 2:05 PM This or emi reflects the patients wishes and were consensually agreed upon. Question Answer Comments Discussion of Advance Directives occurred with: Patient/Family Does the patient have a Living Will? No Does the patient have Health Care Power of Nail Professional? No Full Code 10/15/2009 7:12 AM 10/15/2009 9:26 PM This order reflects the patients wishes and were consensually agreed upon. Care Teams Girls Swimming Coach Relationship Specialty Start Date End Date Alfa Jaramillo MD [address] [place] [address] PCP - General 05/06/00 documented as of this encounter
--- OUTSIDE RECORDS SUMMARY | 2023-11-15 18:42 | External Medical Summary | Summary of Care ---
Author Name Unknown Organization [facility] Address [address] [facility] [place] [address] Phone [phone] Care Team Providers Care Meteorology Teacher Name Role Phone Alfa Jaramillo MD Primary Care Provider +1- [phone] Reason for Visit * Reason Onset Date Comments Medication Question 06/18/2023 Encounter Details Date Type Department Care Team (Late st Contact Info) Description 06/18/2023 Telephone Pharmacy, [facility] [address] [facility] [place] [id number] [facility] [place] [address] Medication Question Allergies Active Allergy Reactions Criticality Noted Date Comments Alendronate Sodium 06/24/2012 Burning sensation and difficulty breathing Proton Pump Inhibitors Hives 02/20/2002 nexium documented as of this encounter (statuses as of 07/18/2023) Medications Medication Sig Dispensed Refills Start Date [...] directed. Change every 10 days. Supplied by [employer]: [phone] 0 Active Dexcom G6 Transmitter Use as directed. Change every 90 days. Supplied by [employer]: [phone] 0 Active Dexcom G6 Utilities Manager Device Use as directed. Supplied by [employer]: [phone] 0 Active Fluticasone Propionate 50 MCG/ACT Nasal [...] 1 causing neurological disease, not at goal ([facility]) TAKE ONE TABLET BY MOUTH TWICE A DAY WITH FOOD 180 Tablet 3 11/16/2022 4 Active Metoprolol Succinate ER 50 MG Oral Tablet Extended Release 24 Hour (toPROL XL) TAKE ONE TABLET BY MOUTH TWICE A DAY 180 Tablet 3 11/16/2022 4 Active Warfarin Sodium 5 MG Oral Tablet (Coumadin)Indication s:[facility] current use of anticoagulant therapy,Deep vein thrombosis (DVT) ([facility]) TAKE ONE TABLET TO ONE AND ONE-HALF TABLET BY MOUTH EVERY DAY DIRECTED BY [facility] 135 Tablet 3 08/12/2022 4 Active Insulin Aspart 100 UNIT/ML Injection Solution (Novo[employer])Indications :Type 2 diabetes mellitus with foot ulcer, with long-term current use of insulin ([facility]) Use with insulin pump. Up [...] as of this encounter (statuses as of 07/18/2023) Active Problems Problem Noted Date Diagnosed Date Type 2 diabetes mellitus with foot ulcer (CODE) 09/19/2022 Gastro-esophageal reflux disease without esophag itis 03/27/2022 Major depressive disorder, recurrent, unspecifie d 02/10/2021 DM (diabetes mellitus) type II, controlled, with peripheral vascular disorder 12/08/2020 Coronary artery disease of n ative artery of [place] heart with stable angina pectoris 12/08/2020 History [...] as of this encounter (statuses as of 07/18/2023) Resolved Problems Problem Noted Date Diagnosed Date Resolved Date Major depressive disorder, s gwendolyn episode, unspecified 12/08/2020 09/11/2022 Overview: More specified/recent code listed on PL Open wound of left ankle 03/24/2020 07/ 03/2021 Surgical wound breakdown, dumont bsequent encounter 03/24/2020 [...] as of this encounter (statuses as of 07/18/2023) Immunizations Name Administration Dates Next Due COVID-19 [...] Telephone Encounter - Yovana Mcgee RPh - 06/18/2023 11:14 AM EST Sylwia, Patient needs help with the Ozempic PAP paperwork for next year. Please advise and assist. Thank you, Yovana Mcgee, Pharm D, BCACP Clinical Pharmacist 06/18/2023, 11:15 AM documented in this encounter Plan of Treatment Upcoming Encounters Date Type Department Care Team (Latest Contact Info) Description 08/03/2023 10:00 AM EST Office Visit Pharmacy, [place] [address] [place] [address] [facility] [address] [place] [address] 08/03/2023 10:30 AM EST Anticoagulation Pharmacy, [place] [address] [place] [address] [facility] [address] [place] [address] 08/07/2023 10:30 AM EST Office Visit Podiatry [facility], [address] [place] [address] Kenny Archibald DPM [address] [facility] [place] [address] 09/18/2023 8:30 AM EST Hospital Encounter ENDO [facility], Endoscopy Room [facility] [address] [facility] [place] [phone] Anselmo Sung MD [address] [place] [address] 09/18/2023 8:30 AM EST - 09/18/2023 9:00 AM EST Surgery ENDO [facility], Endoscopy Room [facility] [address] [place] [phone] Anselmo Sung MD [address] [place] [address] COLONOSCOPY FLEXIBLE PROXIMAL DIAGNOSTIC 10/18/2023 9:00 AM EDT Office Visit Cardiology, [facility] [address] [place] [address] Nesha Denney CRNP [address] [place] [address] 01/03/2024 1:00 PM EDT Office Visit [facility] [address] [place] [phone] Natalia Heller PALoiC [address] [place] [address] Scheduled Procedures Name Priority Associated Diagnoses Date/Ti [...] D LEVEL ONCE IN A LIFETIME-USE SMARTSET# [id number] Completed 06/18/2020, 07/25/2019, 05/20/2015, Additional history exists LUNG CANCER SCREENING - USE SMARTSET 71572 Completed 12/22/2022, 12/09/2021, 12/24/2020, Additional history exists Influenza Vaccine (FLU shot) Completed , 05/08/2022, 06/18/2020, Additional history exists GARDASIL-HPV IMMUNIZATION SERIES Aged Out No longer eligible based on patient's age to complete this topic MENINGOCOCCAL (MENACTRA/MENVEO) Aged Out No longer eligible based on patient's age to complete this topic documented as of this encounter Medical Devices Implanted Type Area Account Assistant Device Identifier Shelf Expiration Date Model / Serial / Lot Graft Cervical 6x8 [id number] - [id number] Implanted:Qt y: 2 on 08/21/2008 at OR [facility] [place] Tissue - Human Spine Cervical [employer] [id number] / / 14 Mm Variable Rescue Implanted:Qt y: 2 on 08/21/2008 at OR [facility] [place] N/A: Spine Cervical [id number] / / Description:14 mm variable r escue Screw 3.5x14 Mntr Fa [id number] - [id number] Implanted:Qt y: 10 on 07/13/2010 at OR [facility] [place] N/A: Spine Cervical JNJ : [employer] [id number] / / documented as of this encounter [...] the patient have Health Care Power of Military Education Coordinator? No Full Code 07/13/2010 12:29 PM 07/17/2010 4:03 PM Thi s order reflects the patients wishes and were consensually agreed upon. Question Answer Comments Discussion of Advance Directives occurred with: Not Discussed Does the patient have a Living Will? No Does the patient have Health Care Power of Military Education Coordinator? No Full Code 01/07/2010 6:23 AM 01/07/2010 2:05 PM This or emi reflects the patients wishes and were consensually agreed upon. Question Answer Comments Discussion of Advance Directives occurred with: Patient/Family Does the patient have a Living Will? No Does the patient have Health Care Power of Military Education Coordinator? No Full Code 10/15/2009 7:12 AM 10/15/2009 9:26 PM This order reflects the patients wishes and were consensually agreed upon. Care Teams Meteorology Teacher Relationship Specialty Start Date End Date Alfa Jaramillo MD [address] [facility] [place] [address] PCP - General 05/06/00 documented as of this encounter
--- OUTSIDE RECORDS SUMMARY | 2023-11-15 18:42 | External Medical Summary ---
Author Name Unknown Address Unknown Organization : Laboratory Report Ordering Provider Test Date Status LETICIA HOOD 08/03/2023 10:05:18 Final Therapeutic ranges for non-o perative patients:
Prophylaxsis/treatment of DVT: (Range:2.0-3.0)
Treatment of pulmonary embolism:(Range:2.0-3.0)
Prevention of systemic embolism from:
-tissue heart valves
-acute myocardial infarction
-valvular heart disease
-atrial fibrillation
(Range: 2.0-3.0)
Mechanical prosthetic valves: (Range: 2.5-3.5) Observation Date Value Abnormality Reference (Units ) Status INR in Capillary blood by Coagulation assay 08/03/2023 10:05:18 1.7 (INR) Final Performing Location
--- OUTSIDE RECORDS SUMMARY | 2023-11-15 18:42 | External Medical Summary | Summary of Care ---
Author Name Unknown Organization [facility] Address [address] [facility] [place] [address] Phone [phone] Care Team Providers Care Staffing Coordinator Name Role Phone Alfa Jaramillo MD Primary Care Provider +1- [phone] Reason for Visit * Reason Comments Outpatient Testing Encounter Details Date Type Department Care Team (Late st Contact Info) Description 07/05/2023 1:40 PM EST Laboratory Laboratory, [place] [address] [place] [address] [facility] [address] [place] [address] History of DVT (deep vein thrombosis); Chronic atrial fibrillation ([facility]); Anticoagulation management encounter; 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 Change every 10 days. Supplied by [facility]: [phone] 0 Active Dexcom G6 Transmitter Use as directed. Change every 90 days. Supplied by [facility]: [phone] 0 Active Dexcom G6 Undercover Agent Device Use as directed. Supplied by [employer] [facility]: [phone] 0 Active Fluticasone Propionate 50 MCG/ACT Nasal [...] 1 causing neurological disease, not at goal ([facility]) TAKE ONE TABLET BY MOUTH TWICE A DAY WITH FOOD 180 Tablet 3 11/16/2022 4 Active Metoprolol Succinate ER 50 MG Oral Tablet Extended Release 24 Hour (toPROL XL) TAKE ONE TABLET BY MOUTH TWICE A DAY 180 Tablet 3 11/16/2022 4 Active Warfarin Sodium 5 MG Oral Tablet (Coumadin)Indication s:[facility] current use of anticoagulant therapy,Deep vein thrombosis [...] artery disease of n ative artery of [place] heart with stable angina pectoris 12/08/2020 History [...] (Latest Contact Info) Description 07/09/2023 10:[address] [facility] Office Visit Podiatry, [place] [phone] [place] [address] Kenny Archibald, [address] [address] 08/03/2023 10:[address] [facility] Office Visit Pharmacy, [place] [address] [place] [address] [facility] [address] [place] [address] 08/03/2023 10:[address] [facility] Anticoagulation Pharmacy, [place] [address] [place] [address] [facility] [address] [place] [address] 09/18/2023 8:[address] [facility] Hospital Encounter ENDO [facility], Endoscopy Room [facility] [address] [place] [phone] Anselmo Sung MD [address] [place] [phone] 09/18/2023 8:30 AM EST - 09/18/2023 9:00 AM EST Surgery ENDO [facility], Endoscopy Room [facility] [address] [place] [phone] Anselmo Sung MD [address] [place] [address] COLONOSCOPY FLEXIBLE PROXIMAL DIAGNOSTIC 10/18/2023 9:00 AM EDT Office Visit Cardiology, [facility] [address] [place] [address] Nesha Denney CRNP [address] [place] [address] 01/03/2024 1:00 PM EDT Office Visit [facility] [address] [place] [phone] Natalia Heller PA-C [address] [place] [address] Pending Results Name Type Priority Associated Diagnoses Date /Time PT INR Lab Routine History of DVT (deep vein thrombosis) Chronic atrial fibrillation ([facility]) Anticoagulation management encounter 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 07/05/2023 1:32 PM EST VITAMIN B12 Lab Routine Type 2 diabetes mellitus with foot ulcer, with long-term current use of insulin ([facility]) DM (diabetes mellitus) type II, controlled, with peripheral vascular disorder ([facility]) Encounter for long-term (current) use of medications 07/05/2023 1:32 PM EST COMPREHENSIVE METABOLIC PANEL Lab Routine Type 2 diabetes mellitus with foot ulcer (CODE) ([facility]) 07/05/2023 1:32 PM EST HEMOGLOBIN A1C Lab Routine Type 2 diabetes mellitus with foot ulcer (CODE) ([facility]) 07/05/2023 1:32 PM EST DIGOXIN LEVEL Lab Routine Chronic atrial fibrillation ([facility]) 07/05/2023 1:32 PM EST MYCODE SUBSEQUENT ADULT Lab Routine [employer] Other*[id number] 07/05/2023 1:32 PM EST MYCODE SST1 Lab Routine [employer] Other*[id number] 07/05/2023 1:32 PM EST MYCODE SST2 Lab Routine [employer] Other*[id number] 07/05/2023 1:32 PM EST Scheduled Procedures Name Priority Associated Diagnoses [...] D LEVEL ONCE IN A LIFETIME-USE SMARTSET# [id number] Completed 06/18/2020, 07/25/2019, 05/20/2015, Additional history exists LUNG CANCER SCREENING - USE SMARTSET [id number] Completed 12/22/2022, 12/09/2021, 12/24/2020, Additional history exists Influenza Vaccine (FLU shot) Completed , 05/08/2022, 06/18/2020, Additional history exists GARDASIL-HPV IMMUNIZATION SERIES Aged Out No longer eligible based on patient's age to complete this topic MENINGOCOCCAL (MENACTRA/MENVEO) Aged Out No longer eligible based on patient's age to complete this topic documented as of this encounter Medical Devices Implanted Type Area Cloud Automation Tester Device Identifier Shelf Expiration Date Model / Serial / Lot Graft Cervical 6x8 [id number] - [id number] Implanted:Qt y: 2 on 08/21/2008 at OR [facility] [place] Tissue - Human Spine Cervical [employer] [id number] / / 14 Mm Variable Rescue Implanted:Qt y: 2 on 08/21/2008 at OR [facility] N/A: Spine Cervical [id number] / / Description:14 mm variable r escue Screw 3.5x14 [facility] [id number] - [id number] Implanted:Qt y: 10 on 07/13/2010 at OR [facility] [place] N/A: Spine Cervical JNJ : [employer] [id number] / / documented as of this encounter Visit Diagnoses Diagnosis History of DVT (deep vein thrombosis) Personal history of venous thrombosis and embolism Chronic atrial fibrillation ([facility]) Atrial fibrillation Anticoagulation management encounter 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 No Full Code 07/13/2010 12:29 PM 07/17/2010 4:03 PM Thi s order reflects the patients wishes and were consensually agreed upon. Question Answer Comments Discussion of Advance Directives occurred with: Not Discussed Does the patient have a Living Will? No Does the patient have Health Care Power of Steam Tender? No Full Code 01/07/2010 6:23 AM 01/07/2010 2:05 PM This or emi reflects the patients wishes and were consensually agreed upon. Question Answer Comments Discussion of Advance Directives occurred with: Patient/Family Does the patient have a Living Will? No Does the patient have Health Care Power of Steam Tender? No Full Code 10/15/2009 7:12 AM 10/15/2009 9:26 PM This order reflects the patients wishes and were consensually agreed upon. Care Teams Staffing Coordinator Relationship Specialty Start Date End Date Alfa Jaramillo MD [address] [place] [address] PCP - General 05/06/00 documented as of this encounter
--- OUTSIDE RECORDS SUMMARY | 2023-11-15 18:42 | External Medical Summary | Summary of Care ---
Author Name Unknown Organization [facility] Address [address] [facility] [place] [address] Phone [phone] Care Team Providers Care Power Sweeper Operator Name Role Phone Alfa Jaramillo MD Primary Care Provider +1- [phone] Reason for Visit * Reason Comments Foot Ulcer DM, ulcer, open woun d Encounter Details Date Type Department Care Team (Late st Contact Info) Description 07/09/2023 10:45 AM EST Office Visit Podiatry, [facility] [address] [place], [place] [phone] Kenny Archibald, JASMINE [address] [place], [place] [phone] Diabetic polyneuropathy associated with type 1 diabetes mellitus (HCC)*; Skin ulcer of left great toe with fat layer exposed (HCC) Allergies Active Allergy Reactions Criticality Noted Date Comments Alendronate Sodium 06/24/2012 Burning sensation and difficulty breathing Proton Pump Inhibitors Hives 02/20/2002 nexium documented as of this encounter (statuses as of 07/09/2023) Medications Medication Sig Dispensed Refills Start Date [...] directed. Change every 10 days. Supplied by [employer]: [phone] 0 Active Dexcom G6 Transmitter Use as directed. Change every 90 days. Supplied by [employer]: [phone] 0 Active Dexcom G6 Instructional Coordinator Device Use as directed. Supplied by [employer]r: [phone] 0 Active Fluticasone Propionate 50 MCG/ACT Nasal [...] neurological disease, not at goal ([facility]) TAKE ONE TABLET BY MOUTH TWICE A DAY WITH FOOD 180 Tablet 3 11/16/2022 4 Active Metoprolol Succinate ER 50 MG Oral Tablet Extended Release 24 Hour (toPROL XL) TAKE ONE TABLET BY MOUTH TWICE A DAY 180 Tablet 3 11/16/2022 4 Active Warfarin Sodium 5 MG Oral Tablet (Coumadin)Indication s:detention current use of anticoagulant therapy,Deep vein thrombosis (DVT) ([facility]) TAKE ONE TABLET TO ONE [...] as of this encounter (statuses as of 07/09/2023) Active Problems Problem Noted Date Diagnosed Date Type 2 diabetes mellitus with foot ulcer (CODE) 09/19/2022 Gastro-esophageal reflux disease without esophag itis 03/27/2022 Major depressive disorder, recurrent, unspecifie d 02/10/2021 DM (diabetes mellitus) type II, controlled, with peripheral vascular disorder 12/08/2020 Coronary artery disease of n ative artery of [place] heart with stable angina pectoris 12/08/2020 History [...] as of this encounter (statuses as of 07/09/2023) Resolved Problems Problem Noted Date Diagnosed Date [...] as of this encounter (statuses as of 07/09/2023) Immunizations Name Administration Dates Next Due COVID-19 [...] as of this encounter Progress Notes * Kenny Archibald DPM - 07/09/2023 10:59 AM EST Subjective: Patient presents in office today for ulceration left great toe. Patient has been wearing the tubefoam pad. HISTORY Past Medical History: Diagnosis Date Asthma with [...] LDL below 100 07/15/2009 Per Lipid Taxonomy. detention (current) use of anticoagulants Major depressive disorder, [...] performed by Buffy Castro MD at OR [facility] AMPUTATION OF TOE Right 05/02/2019 AMPUTATION TOE METATARSOPHALANGEAL JOINT performed by Kenny Archibald DPM at OR [facility] ARTHROPLASTY KNEE TOTAL Right 05/2016 Dr Reynoso BX LYMPH NODE DEEP AXIL Left 04/07/2015 BIOPSY LYMPH NODE DEEP AXILLARY OPEN performed by Buffy Castro MD at OR [facility] CARPAL TUNNEL SURGERY 10/15/2009 NEUROPLASTY MEDIAN NERVE AT CARPAL TUNNEL performed by CHELSI DICKERSON at OR [facility] CARPAL TUNNEL SURGERY 01/07/2010 NEUROPLASTY MEDIAN NERVE AT CARPAL TUNNEL performed by CHELSI DICKERSON at [facility] COLONOSCOPY 12/09/2009 adenomatous polyps repeat 6 months [...] performed by Anselmo Sung MD at ENDOSCOPY [facility] COLONOSCOPY, DIAGNOSTIC (RECTUM) 03/21/2018 adenomatous polyp, diverticulosis, repeat 2 yrs/COLONOSCOPY FLEXIBLE PROXIMAL DIAGNOSTIC performed by Anselmo Sung MD at ENDOSCOPY [facility] COLONOSCOPY, DIAGNOSTIC (RECTUM) 01/15/2014 COLONOSCOPY FLEXIBLE PROXIMAL DIAGNOSTIC performed by Anselmo Sung MD at ENDOSCOPY [facility] COLONOSCOPY, DIAGNOSTIC (RECTUM) 11/16/2020 Hemorrhoids, diverticulosis sigmoid colon, multi polyps / biopsy benign adenomatous polyps / 1 yearrecall / COLONOSCOPY FLEXIBLE PROXIMAL DIAGNOSTIC performed by Anselmo Sung MD at ENDOSCOPY [facility] COLONOSCOPY/REMOVE LESION 03/16/2009 repeat 6 months DILATION AND CURETTAGE (D&C) 1996 D&C ENDO DECOMPRESS SPINAL CORD W/LAMINOTOMY, CERVICAL 07/13/2010 LAMINECTOMY DECOMPRESSION SPINAL CORD POSTERIOR CERVICAL performed by CHELSI DICKERSON at [facility] IDENTIFY SENTINEL NODE, RADIOACTIVE TRACER Left 04/07/2015 INJECTION PROCEDURE FOR IDENTIFICATION SENTINEL NODE performed by Buffy Castro MD at [facility] KNEE ARTHROSCOPY, DIAGNOSTIC 12/2012 Left knee - [...] PARTIAL performed by Buffy Castro MD at [facility] NECK SPINE FUSION (CERV, BELOW C2) 08/21/2008 ARTHRODESIS SPINE ANTERIOR CERVICAL performed by CHELSI DICKERSON at [facility] NECK SPINE FUSION (CERV, BELOW C2) 07/13/2010 ARTHRODESIS SPINE POSTERIOR CERVICAL performed by CHELSI DICKERSON at [facility] RADIATION THERAPY MANAGEMENT Left 07/10/2015 REMOVE NECK SPINE LAMINA, 1-2 SEGS 07/13/2010 LAMINECTOMY POSTERIOR CERVICAL ONE OR TWO VERTEBRAL SEGMENTS performed by CHELSI DICKERSON at [facility] SENTINEL LYMPH NODE BIOPSY PERFORMED Left 04/07/2015 SPINE SEG FIX, POST, 3-6 SEG, INSERT 07/13/2010 POSTERIOR SPINE SEGMENTAL INSTRUMENTATION 3 TO 6 PSF performed by CHELSI DICKERSON at [facility] Family History Problem Relation Age of Onset Diabetes Mother Breast Cancer Mother 76 Diabetes Father Heart Disorder Father [place] age 34 - age 52 Breast Cancer Grandmother (Maternal) Cancer Sister unknown type Diabetes Brother Diabetes Brother Social History Socioeconomic History Marital status: Spouse name: gaetano Number of children: 2 Years of education: Not on file Highest education level: Not on file Occupational History Comment: retired from [employer] Tobacco Use Smoking status: Former Packs/day: 2.00 Years: 36.00 Additional pack years: 0.00 Total pack years: 72.00 Types: Cigarettes Quit date: 04/19/2015 Years since quittin.2 Smokeless tobacco: Never Vaping Use Vaping Use: Never used Substance and Sexual Activity Alcohol use: Not Currently Comment: 1 drink/3 months Drug use: No Sexual activity: Yes Partners: Male Comment: Other Topics Concern Not on file Social History Narrative Not on file Social Determinants of Health Financial Resource Strain: Not on file Food Insecurity: No Food Insecurity (04/28/2019) Hunger Vital Sign Worried About Running Out of Food in the Last Year: Never true Ran Out of Food in the Last Year: Never true Transportation Needs: Not on file Physical Activity: Not on file Stress: Not on file Social Connections: Not on file Intimate Partner Violence: Not on file Housing Stability: Not on file Current Outpatient Medications Medication Sig Dispense Refill [...] directed. Change every 10 days. Supplied by [employer]: [phone] Dexcom G6 Transmitter Use as directed. Change every 90 days. Supplied by [employer]r: [phone] Rabbit TV G6 Instructional Coordinator Device Use as directed. Supplied by Fastr: [phone] Fluticasone Propionate 50 MCG/ACT Nasal Suspension (Flonase) Administer 2 Sprays into each nostril in the morning. 16 g 1 Pregabalin 150 MG Oral Capsule (Lyrica) TAKE ONE CAPSULE BY MOUTH TWICE A DAY 180 Capsule 1 Isosorbide Mononitrate ER 60 MG Oral [...] No current facility-administered medications for this visit. ROS EXAM: CONSTITUTIONAL: No change in weight, No weakness, No fatigue, and No fevers, sweats, or chills EXTREMITIES: No pain, redness or swelling on the joints SKIN/INTEGUMENTARY: No edema, No rash, and No itching NEUROLOGIC: Normal balance, No headaches, No seizures, and No weakness Objective: Vascular examination: DP 2/4 PT 1/4 SPVFT 3sec, no digital hair, cold feet Dermatological examination: Ulceration IPJ left great toe now measures 1mm diameter. No erythema ordrainage Orthopedic examination: unremarkable Neurological examination: Epicritic sensation intact Assessment: The primary encounter diagnosis was Diabetic polyneuropathy associated with type 1 diabetes mellitus (HCC). A diagnosis of Skin ulcer of left great toe with fat layer exposed (HCC) was also pertinentto this visit. Plan: Debridement of ulceration left great toe measuring 1mm diameter with removal of devitalized skin using a #312 blade Silvadene/Bandaid Tubefoam pads documented in this encounter Nursing Notes * Courtney Holloway MED ASSIST - 07/09/2023 10:50 AM EST DM, ulcer, open wound documented in this encounter Plan of Treatment Upcoming Encounters Date Type Department Care Team (Latest Contact Info) Description 08/03/2023 10:00 AM EST Office Visit Pharmacy, [place] [address] [place] [address] [facility] [address] [place] [address] 08/03/2023 10:30 AM EST Anticoagulation Pharmacy, [place] [address] [place] [address] [facility] [address] [place] [address] 08/07/2023 10:30 AM EST Office Visit Podiatry [address] [place] [address] Kenny Archibald, JULIENM [facility] [place] [address] 09/18/2023 8:30 AM EST Hospital Encounter ENDO OSSC, Endoscopy Room [facility] [address] [place] [phone] Anselmo Sung MD [address] [place] [address] 09/18/2023 8:30 AM EST - 09/18/2023 9:00 AM EST Surgery ENDO OSSC, Endoscopy Room [facility] [address] [place] [phone] Anselmo Sung MD [address] [place] [address] COLONOSCOPY FLEXIBLE PROXIMAL DIAGNOSTIC 10/18/2023 9:00 AM EDT Office Visit Cardiology, [facility] [address] [place] [address] Nesha Denney CRNP [address] [place] [address] 01/03/2024 1:00 PM EDT Office Visit [facility] [address] [place] [phone] Natalia Heller PA-C [address] [place] [address] Scheduled Orders Name Type Priority Associated Diagnoses Orde r Schedule OPEN WOUND DEBRIDEMENT UP TO 20 CM2 Procedures Routine Skin ulcer of left great toe with fat layer exposed (HCC) Ordered: 07/09/2023 Scheduled Procedures Name Priority Associated Diagnoses Date/Ti [...] D LEVEL ONCE IN A LIFETIME-USE SMARTSET# 39894 Completed 06/18/2020, 07/25/2019, 05/20/2015, Additional history exists LUNG CANCER SCREENING - USE SMARTSET 56831 Completed 12/22/2022, 12/09/2021, 12/24/2020, Additional history exists Influenza Vaccine (FLU shot) Completed , 05/08/2022, 06/18/2020, Additional history exists GARDASIL-HPV IMMUNIZATION SERIES Aged Out No longer eligible based on patient's age to complete this topic MENINGOCOCCAL (MENACTRA/MENVEO) Aged Out No longer eligible based on patient's age to complete this topic documented as of this encounter Medical Devices Implanted Type Area Pipe Line Gauger Device Identifier Shelf Expiration Date Model / Serial / Lot Graft Cervical 6x8 [id number] - [id number] Implanted:Qt y: 2 on 08/21/2008 at OR [facility] Tissue - Human Spine Cervical [employer] [id number] / / 14 Mm Variable Rescue Implanted:Qt y: 2 on 08/21/2008 at OR [facility] N/A: Spine Cervical [id number] / / Description:14 mm variable r escue Screw 3.5x14 Mntr Fa [id number] - [id number] Implanted:Qt y: 10 on 07/13/2010 at OR [facility] N/A: Spine Cervical JN[place] : [employer] [id number] / / documented as of this encounter Visit Diagnoses Diagnosis Diabetic polyneuropathy associated with type 1 diabetes mellitus (HCC)- Primary Skin ulcer of left great toe with fat layer exposed (HCC) Encounter for colonoscopy due to history [...] the patient have Health Care Power of Polishing Machine Tender? No Full Code 07/13/2010 12:29 PM 07/17/2010 4:03 PM Thi s order reflects the patients wishes and were consensually agreed upon. Question Answer Comments Discussion of Advance Directives occurred with: Not Discussed Does the patient have a Living Will? No Does the patient have Health Care Power of Polishing Machine Tender? No Full Code 01/07/2010 6:23 AM 01/07/2010 2:05 PM This or emi reflects the patients wishes and were consensually agreed upon. Question Answer Comments Discussion of Advance Directives occurred with: Patient/Family Does the patient have a Living Will? No Does the patient have Health Care Power of Polishing Machine Tender? No Full Code 10/15/2009 7:12 AM 10/15/2009 9:26 PM This order reflects the patients wishes and were consensually agreed upon. Care Teams Power Sweeper Operator Relationship Specialty Start Date End Date Alfa Jaramillo MD [address], [place] [phone] PCP - General 05/06/00 documented as of this encounter
--- OUTSIDE RECORDS SUMMARY | 2023-11-15 18:43 | External Medical Summary | Summary of Care ---
Author Name Unknown Organization [facility] Address [address] [place] [address] Phone [phone] Care Team Providers Care Head Counselor Name Role Phone Alfa Jaramillo MD Primary Care Provider +1- [phone] Encounter Details Date Type Department Care Team (Late st Contact Info) Description 07/03/2023 Orders Only Outcomes Research Department [address] [place] [address] Fauzia Zamudio CHRA [employer] [facility] Other*[id number] Allergies Active Allergy Reactions Criticality Noted Date Comments Alendronate Sodium 06/24/2012 Burning sensation and difficulty breathing Proton Pump Inhibitors Hives 02/20/2002 nexium documented as of this encounter (statuses as of 07/03/2023) Medications Medication Sig Dispensed Refills Start Date [...] directed. Change every 10 days. Supplied by [employer]: [phone] 0 Active Dexcom G6 Transmitter Use as directed. Change every 90 days. Supplied by [employer]: [phone] 0 Active Dexcom G6 Custom Feed Corn Operator Device Use as directed. 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 Up to 315 [...] as of this encounter (statuses as of 07/03/2023) Active Problems Problem Noted Date Diagnosed Date [...] as of this encounter (statuses as of 07/03/2023) Resolved Problems Problem Noted Date Diagnosed Date [...] as of this encounter (statuses as of 07/03/2023) Immunizations Name Administration Dates Next Due COVID-19 [...] Department Care Team (Latest Contact Info) Description 07/05/2023 1:00 PM EST Office Visit Family Practice, [place] [address] [facility] [place] [phone] Natalia Heller PA-C [address] [facility], [place] [address] 07/09/2023 10:45 AM EST Office Visit Podiatry, [facility] [address] [place] [address] Kenny Archibald, [facility] [address] [place] [address] 08/03/2023 10:00 AM EST Office Visit Pharmacy, [place] [address] [facility], [place] [address] [facility] [address] [facility], [place] [address] 08/03/2023 10:30 AM EST Anticoagulation Pharmacy, [place] [address] [facility] [place] [address] [facility] [address] [facility], [place] [address] 09/18/2023 8:30 AM EST Hospital Encounter ENDO OSSC, Endoscopy Room [facility] [address] [place] [phone] Anselmo Sung MD [address] [place] [address] 09/18/2023 8:30 AM EST - 09/18/2023 9:00 AM EST Surgery ENDO O[facility]C, Endoscopy Room [facility] [address] [place] [phone] Anselmo Sung MD [address] [place] [address] COLONOSCOPY FLEXIBLE PROXIMAL DIAGNOSTIC 10/18/2023 9:00 AM EDT Office Visit Cardiology, [facility] [address] [place] [address] Nesha Denney CRNP [address] [place] [address] Scheduled Orders Name Type Priority Associated Diagnoses Orde r Schedule MYCODE SUBSEQUENT ADULT Lab Routine [employer] Other*[id number] Every 6 Months for 2 Occurrences starting 07/03/2023 until 07/22/2024 Scheduled Procedures Name Priority Associated Diagnoses Date/Ti [...] D LEVEL ONCE IN A LIFETIME-USE SMARTSET# [id number] Completed 06/18/2020, 07/25/2019, 05/20/2015, Additional history exists LUNG CANCER SCREENING - USE SMARTSET [id number] Completed 12/22/2022, 12/09/2021, 12/24/2020, Additional history exists Influenza Vaccine (FLU shot) Completed , 05/08/2022, 06/18/2020, Additional history exists GARDASIL-HPV IMMUNIZATION SERIES Aged Out No longer eligible based on patient's age to complete this topic MENINGOCOCCAL (MENACTRA/MENVEO) Aged Out No longer eligible based on patient's age to complete this topic documented as of this encounter Medical Devices Implanted Type Area Supervisor Receiving And Processing Device Identifier Shelf Expiration Date Model / Serial / Lot Graft Cervical 6x8 [id number] - [id number] Implanted:Qt y: 2 on 08/21/[place] [facility] [place] - Human Spine Cervical [employer] [id number] / / 14 Mm Variable Rescue Implanted:Qt y: 2 on 08/21/2008 [place] [facility] N/A: Spine Cervical [id number] / / Description:14 mm variable r escue Screw 3.5x14 Mntr Fa [id number] - [id number] Implanted:Qt y: 10 on 07/13/2010 [place] [facility] N/A: Spine Cervical JN[place] : [employer] [id number] / / documented as of this encounter Visit Diagnoses Diagnosis [employer] Other*[id number] Encounter for colonoscopy due to history of [...] the patient have Health Care Power of Solid Tire Finisher? No Full Code 07/13/2010 12:29 PM 07/17/2010 4:03 PM Thi s order reflects the patients wishes and were consensually agreed upon. Question Answer Comments Discussion of Advance Directives occurred with: Not Discussed Does the patient have a Living Will? No Does the patient have Health Care Power of Solid Tire Finisher? No Full Code 01/07/2010 6:23 AM 01/07/2010 2:05 PM This or emi reflects the patients wishes and were consensually agreed upon. Question Answer Comments Discussion of Advance Directives occurred with: Patient/Family Does the patient have a Living Will? No Does the patient have Health Care Power of Solid Tire Finisher? No Full Code 10/15/2009 7:12 AM 10/15/2009 9:26 PM This order reflects the patients wishes and were consensually agreed upon. Care Teams Head Counselor Relationship Specialty Start Date End Date Alfa Jaramillo MD [address] [place] [address] PCP - General 05/06/00 documented as of this encounter
--- OUTSIDE RECORDS SUMMARY | 2023-11-15 18:43 | External Medical Summary | Summary of Care ---
Author Name Unknown Organization [facility] Address [address] [facility] [place] [address] Phone [phone] Care Team Providers Care Mark Up Designer Name Role Phone Alfa Jaramillo MD Primary Care Provider +1- [phone] Reason for Visit * Reason Comments Foot Ulcer DM, ulcer, open woun d Encounter Details Date Type Department Care Team (Late st Contact Info) Description 06/21/2023 10:45 AM EST Office Visit Podiatry, [facility] [address] [place], [place] [phone] Kenny Archibald, JASMINE [address], [place] [phone] Diabetic polyneuropathy associated with type 1 diabetes mellitus (HCC)*; Skin ulcer of left great toe with fat layer exposed (HCC) Allergies Active Allergy Reactions Criticality Noted Date Comments Alendronate Sodium 06/24/2012 Burning sensation and difficulty breathing Proton Pump Inhibitors Hives 02/20/2002 nexium documented as of this encounter (statuses as of 06/21/2023) Medications Medication Sig Dispensed Refills Start Date [...] directed. Change every 10 days. Supplied by [employer]: [phone] 0 Active Dexcom G6 Transmitter Use as directed. Change every 90 days. Supplied by [employer]: [phone] 0 Active Dexcom G6 Drier Tender Device Use as directed. 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,Deep vein thrombosis (DVT) ([facility]) TAKE ONE TABLET TO ONE [...] as of this encounter (statuses as of 06/21/2023) Active Problems Problem Noted Date Diagnosed Date Type 2 diabetes mellitus with foot ulcer (CODE) 09/19/2022 Gastro-esophageal reflux disease without esophag itis 03/27/2022 Major depressive disorder, recurrent, unspecifie d 02/10/2021 DM (diabetes mellitus) type II, controlled, with peripheral vascular disorder 12/08/2020 Coronary artery disease of n ative artery of [place] heart with stable angina pectoris 12/08/2020 History [...] as of this encounter (statuses as of 06/21/2023) Resolved Problems Problem Noted Date Diagnosed Date [...] as of this encounter (statuses as of 06/21/2023) Immunizations Name Administration Dates Next Due COVID-19 [...] Progress Notes * Kenny Archibald DPM - 06/21/2023 10:59 AM EST Subjective: Patient presents in [...] LDL below 100 07/15/2009 Per Lipid Taxonomy. 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) use of anticoagulants Major depressive disorder, [...] performed by Buffy Castro MD at OR [facility] AMPUTATION OF TOE Right 05/02/2019 AMPUTATION TOE METATARSOPHALANGEAL JOINT performed by Kenny Archibald DPM at OR [facility] ARTHROPLASTY KNEE TOTAL Right 05/2016 Dr Reynoso BX LYMPH NODE DEEP AXIL Left 04/07/2015 BIOPSY LYMPH NODE DEEP AXILLARY OPEN performed by Buffy Castro MD at OR [facility] CARPAL TUNNEL SURGERY 10/15/2009 NEUROPLASTY MEDIAN NERVE AT CARPAL TUNNEL [place]HELSI [place]ICK[place] [facility] [place]PAL [place] SURGERY 01/07/2010 NEUROPLASTY MEDIAN NERVE AT CARPAL TUNNEL performed by CHELSI DICKERSON at [facility] COLONOSCOPY 12/09/2009 adenomatous polyps repeat 6 months [...] performed by Anselmo Sung MD at ENDOSCOPY [facility] COLONOSCOPY, DIAGNOSTIC (RECTUM) 03/21/2018 adenomatous polyp, diverticulosis, repeat 2 yrs/COLONOSCOPY FLEXIBLE PROXIMAL DIAGNOSTIC performed by Anselmo Sung MD at ENDOSCOPY [facility] COLONOSCOPY, DIAGNOSTIC (RECTUM) 01/15/2014 COLONOSCOPY FLEXIBLE PROXIMAL DIAGNOSTIC performed by Anselmo Sung MD at ENDOSCOPY [facility] COLONOSCOPY, DIAGNOSTIC (RECTUM) 11/16/2020 Hemorrhoids, diverticulosis sigmoid colon, multi polyps / biopsy benign adenomatous polyps / 1 yearrecall / COLONOSCOPY FLEXIBLE PROXIMAL DIAGNOSTIC performed by Anselmo Sung MD at ENDOSCOPY [facility] COLONOSCOPY/REMOVE LESION 03/16/2009 repeat 6 months DILATION AND CURETTAGE (D&C) 1996 D&C ENDO DECOMPRESS SPINAL CORD W/LAMINOTOMY, CERVICAL 07/13/2010 LAMINECTOMY DECOMPRESSION SPINAL CORD POSTERIOR CERVICAL performed by CHELSI DICKERSON at [facility] IDENTIFY SENTINEL NODE, RADIOACTIVE TRACER Left 04/07/2015 INJECTION PROCEDURE FOR IDENTIFICATION SENTINEL NODE performed by Buffy Castro MD at [facility] KNEE ARTHROSCOPY, DIAGNOSTIC 12/2012 Left knee [...] PARTIAL performed by Buffy Castro MD at [facility] NECK SPINE FUSION (CERV, BELOW C2) 08/21/2008 ARTHRODESIS SPINE ANTERIOR CERVICAL performed by CHELSI DICKERSON at [facility] NECK SPINE FUSION (CERV, BELOW C2) 07/13/2010 ARTHRODESIS SPINE POSTERIOR CERVICAL performed by CHELSI DICKERSON at [facility] RADIATION THERAPY MANAGEMENT Left 07/10/2015 REMOVE NECK SPINE LAMINA, 1-2 SEGS 07/13/2010 LAMINECTOMY POSTERIOR CERVICAL ONE OR TWO VERTEBRAL SEGMENTS performed by CHELSI DICKERSON at [facility] SENTINEL LYMPH NODE BIOPSY PERFORMED Left 04/07/2015 SPINE SEG FIX, POST, 3-6 SEG, INSERT 07/13/2010 POSTERIOR SPINE SEGMENTAL INSTRUMENTATION 3 TO 6 PSF performed by CHELSI DICKERSON at [facility] Family History Problem Relation Age of Onset Diabetes Mother Breast Cancer Mother 76 Diabetes Father Heart Disorder Father [place] age 34 - age 52 Breast Cancer Grandmother (Maternal) Cancer Sister unknown type Diabetes Brother Diabetes Brother Social History Socioeconomic History Marital status: Spouse name: gaetano Number of children: 2 Years of education: Not on file Highest education level: Not on file Occupational History Comment: retired from [employer] Tobacco Use Smoking status: Former Packs/day: 2.00 Years: 36.00 Additional pack years: 0.00 Total pack years: 72.00 Types: Cigarettes Quit date: 04/19/2015 Years since quittin.1 Smokeless tobacco: Never Vaping Use Vaping Use: [...] directed. Change every 10 days. Supplied by [employer]: [phone] Dexcom G6 Transmitter Use as directed. Change every 90 days. Supplied by [employer]: [phone] P[employer] G6 Drier Tender Device Use as directed. Supplied by [employer]: [phone] Fluticasone Propionate 50 MCG/ACT Nasal Suspension (Flonase) [...] Ulceration IPJ left great toe now measures 3mm x 2 mm. No erythema or drainage Orthopedic examination: unremarkable Neurological examination: Epicritic sensation intact Assessment: The primary encounter diagnosis was Diabetic polyneuropathy associated with type 1 diabetes mellitus (HCC). A diagnosis of Skin ulcer of left great toe with fat layer exposed (HCC) was also pertinentto this visit. Plan: Debridement of ulceration left great toe measuring 3mm x 2mm with removal of devitalized skin usinga #312 blade Silvadene/Bandaid Tubefoam pads documented in this encounter Nursing Notes * Courtney Holloway MED ASSIST - 06/21/2023 10:47 AM EST DM, ulcer, open wound documented in this encounter Plan of Treatment Upcoming Encounters Date Type Department Care Team (Latest Contact Info) Description 07/05/2023 1:00 PM EST Office Visit [facility] [address], [place] [address] Natalia Heller PA-C [address] [facility], [place] [address] 07/09/2023 10:45 AM EST [facility] [address] [place] [address] Kenny Archibald, DPM [address] [place] [address] 08/03/2023 10:00 AM EST Office Visit Pharmacy, [place] [address], [place] [address] [facility] [address], [place] [address] 08/03/2023 10:30 AM EST Anticoagulation Pharmacy, [place] [address], [place] [address] [facility] [address] [place] [facility] [place] [address] 09/18/2023 8:30 AM EST Hospital Encounter ENDO [facility], Endoscopy Room [facility] [address] [place] [phone] Anselmo Sung MD [address] [place] [id number] 09/18/2023 8:30 AM EST - 09/18/2023 9:00 AM EST Surgery ENDO [facility], Endoscopy Room [facility] [address] [place] [phone] Anselmo Sung MD [address] [place] [address] COLONOSCOPY FLEXIBLE PROXIMAL DIAGNOSTIC 10/18/2023 9:00 AM EDT Office Visit Cardiology, [facility] [address] [place] [address] Nesha Denney CRNP [address] [place] [address] Scheduled Orders Name Type Priority Associated Diagnoses Orde r Schedule OPEN WOUND DEBRIDEMENT UP TO 20 CM2 Procedures Routine Skin ulcer of left great toe with fat layer exposed (HCC) Ordered: 06/21/2023 Scheduled Procedures Name Priority Associated Diagnoses Date/Ti [...] D LEVEL ONCE IN A LIFETIME-USE SMARTSET# 22941 Completed 06/18/2020, 07/25/2019, 05/20/2015, Additional history exists LUNG CANCER SCREENING - USE SMARTSET 19762 Completed 12/22/2022, 12/09/2021, 12/24/2020, Additional history exists Influenza Vaccine (FLU shot) Completed , 05/08/2022, 06/18/2020, Additional history exists GARDASIL-HPV IMMUNIZATION SERIES Aged Out No longer eligible based on patient's age to complete this topic MENINGOCOCCAL (MENACTRA/MENVEO) Aged Out No longer eligible based on patient's age to complete this topic documented as of this encounter Medical Devices Implanted Type Area Supervisor Data Processing Device Identifier Shelf Expiration Date Model / Serial / Lot Graft Cervical 6x8 [id number] - [id number] [place]planted:Qt y: 2 on 08/21/[place] [facility] [place] - Human Spine Cervical [employer] [id number] / / 14 Mm Variable Rescue Implanted:Qt y: 2 on 08/21/2008 [place] [facility] [place]/A: Spine Cervical [id number] / / Description:14 mm variable r escue Screw 3.5x14 Mntr Fa [id number] - [id number] Implanted:Qt y: 10 on 07/13/2010 [place] [facility] [place]/A: Spine Cervical JNJ : [employer] [id number] / / documented as of this encounter [...] the patient have Health Care Power of Customer Support Analyst? No Full Code 07/13/2010 12:29 PM 07/17/2010 4:03 PM Thi s order reflects the patients wishes and were consensually agreed upon. Question Answer Comments Discussion of Advance Directives occurred with: Not Discussed Does the patient have a Living Will? No Does the patient have Health Care Power of Customer Support Analyst? No Full Code 01/07/2010 6:23 AM 01/07/2010 2:05 PM This or mei reflects the patients wishes and were consensually agreed upon. Question Answer Comments Discussion of Advance Directives occurred with: Patient/Family Does the patient have a Living Will? No Does the patient have Health Care Power of Customer Support Analyst? No Full Code 10/15/2009 7:12 AM 10/15/2009 9:26 PM This order reflects the patients wishes and were consensually agreed upon. Care Teams Mark Up Designer Relationship Specialty Start Date End Date Alfa Jaramillo MD [address] [place] [address] PCP - General 05/06/00 documented as of this encounter
--- OUTSIDE RECORDS SUMMARY | 2023-11-15 18:43 | External Medical Summary | Summary of Care ---
Author Name Unknown Organization [facility] Address [address] [facility] [address] Phone [phone] Care Team Providers Care Icu Specialist Name Role Phone Alfa Jaramillo MD Primary Care Provider +1- [phone] Encounter Details Date Type Department Care Team (Late st Contact Info) Description 06/26/2023 Population Health External Data Unspecified Department Allergies Active Allergy Reactions Criticality Noted Date Comments Alendronate Sodium 06/24/2012 Burning sensation and difficulty breathing Proton Pump Inhibitors Hives 02/20/2002 nexium documented as of this encounter (statuses as of 06/26/2023) Medications Medication Sig Dispensed Refills Start Date [...] directed. Change every 10 days. Supplied by [employer]: [phone] 0 Active Dexcom G6 Transmitter Use as directed. Change every 90 days. Supplied by [employer]: [phone] 0 Active Dexcom G6 Senior Network Architect Device Use as directed. 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 [...] as of this encounter (statuses as of 06/26/2023) Active Problems Problem Noted Date Diagnosed Date Type 2 diabetes mellitus with foot ulcer (CODE) 09/19/2022 Gastro-esophageal reflux disease without esophag itis 03/27/2022 Major depressive disorder, recurrent, unspecifie d 02/10/2021 DM (diabetes mellitus) type II, controlled, with peripheral vascular disorder 12/08/2020 Coronary artery disease of n ative artery of [place] heart with stable angina pectoris 12/08/2020 History [...] as of this encounter (statuses as of 06/26/2023) Resolved Problems Problem Noted Date Diagnosed Date [...] as of this encounter (statuses as of 06/26/2023) Immunizations Name Administration Dates Next Due COVID-19 [...] 1:00 PM EST Office Visit Family Practice, [place] [address] [facility] [phone] Natalia Heller PA-C [address] [facility] [place] [address] 07/09/2023 10:45 AM EST Office Visit Podiatry, [facility] [address] [place] [address] Kenny Archibald, [facility] [address] [place] [address] 08/03/2023 10:00 AM EST Office Visit Pharmacy, [place] [address] [place] [facility] [address] [facility] [address] [facility], [place] [address] 08/03/2023 10:30 AM EST Anticoagulation Pharmacy, [place] [address] [facility], [place] [address] [facility] [address] [place] [facility] [address] 09/18/2023 8:30 AM EST Hospital Encounter ENDO [facility], Endoscopy Room [facility] [address] [place] [phone] Anselmo Sung MD [address] [place] [address] 09/18/2023 8:30 AM EST - 09/18/2023 9:00 AM EST Surgery ENDO [facility], Endoscopy Room [facility] [address] [place] [phone] Anselmo Sung MD [address] [place], [place] [address] COLONOSCOPY FLEXIBLE PROXIMAL DIAGNOSTIC 10/18/2023 9:00 AM EDT Office Visit Cardiology, [facility] [address] [place] [address] Nesha Denney CRNP [address] [place] [address] Scheduled Procedures Name Priority Associated Diagnoses Date/Ti [...] D LEVEL ONCE IN A LIFETIME-USE SMARTSET# 60297 Completed 06/18/2020, 07/25/2019, 05/20/2015, Additional history exists LUNG CANCER SCREENING - USE SMARTSET 18532 Completed 12/22/2022, 12/09/2021, 12/24/2020, Additional history exists Influenza Vaccine (FLU shot) Completed , 05/08/2022, 06/18/2020, Additional history exists GARDASIL-HPV IMMUNIZATION SERIES Aged Out No longer eligible based on patient's age to complete this topic MENINGOCOCCAL (MENACTRA/MENVEO) Aged Out No longer eligible based on patient's age to complete this topic documented as of this encounter Medical Devices Implanted Type Area Business Intelligence Manager Device Identifier Shelf Expiration Date Model / Serial / Lot Graft Cervical 6x8 [id number] - [id number] Implanted:Qt y: 2 on 08/21/2008 at [place] [facility] [place] Tissue - Human Spine Cervical [employer] [id number] / / 14 Mm Variable Rescue Implanted:Qt y: 2 on 08/21/2008 at [place] [facility] [place] N/A: Spine Cervical [id number] / / Description:14 mm variable r escue Screw 3.5x14 Mntr Fa [id number] - [id number] Implanted:Qt y: 10 on 07/13/2010 at [place] [facility] [place] N/A: Spine Cervical JN[place] : [employer] [id number] / / documented as of this encounter [...] the patient have Health Care Power of Application Support Administrator? No Full Code 07/13/2010 12:29 PM 07/17/2010 4:03 PM Thi s order reflects the patients wishes and were consensually agreed upon. Question Answer Comments Discussion of Advance Directives occurred with: Not Discussed Does the patient have a Living Will? No Does the patient have Health Care Power of Application Support Administrator? No Full Code 01/07/2010 6:23 AM 01/07/2010 2:05 PM This or emi reflects the patients wishes and were consensually agreed upon. Question Answer Comments Discussion of Advance Directives occurred with: Patient/Family Does the patient have a Living Will? No Does the patient have Health Care Power of Application Support Administrator? No Full Code 10/15/2009 7:12 AM 10/15/2009 9:26 PM This order reflects the patients wishes and were consensually agreed upon. Care Teams Icu Specialist Relationship Specialty Start Date End Date Alfa Jaramillo MD [address] [place] [address] PCP - General 05/06/00 documented as of this encounter
--- OUTSIDE RECORDS SUMMARY | 2023-11-15 18:43 | External Medical Summary ---
Author Name Unknown Address Unknown Organization K01:[facility] - [address] [facility] [place]. [facility] [address] Laboratory Report Ordering Provider Test Date Status KACEY VALENTINE 07/05/2023 13:32:57 Final Observation Date Value Abnormality Reference (Units ) Status HbA1C 07/05/2023 13:32:57 9.6 Above high normal 4. 0-5.6 (%) Final The use of HbA1c to monitor glycemic status is based on normal hemoglobin and HbA composition. This test should not be used in patients with abnormal hemoglobin that affects the half life of the red blood cell or the in vivo glycation rates. Glucose, estimated average 07/05/2023 13:32:57 229 Above high normal <126 (mg/dL) Josh al Performing Location [facility] - [address] [facility] [address]
--- OUTSIDE RECORDS SUMMARY | 2023-11-15 18:43 | External Medical Summary | Summary of Care ---
Author Name Unknown Organization [facility] Address [address] [place] [address] Phone [phone] Care Team Providers Care Heavy Equipment Operator/Paver Name Role Phone Alfa Jaramillo MD Primary Care Provider +1- [phone] Reason for Visit * Reason Onset Date Comments Advice 04/04/2023 Encounter Details Date Type Department Care Team (Late st Contact Info) Description 04/04/2023 Telephone [facility] [address] [place] [address] Natalia Heller PA-C [address] [place] [address] Advice Allergies Active Allergy Reactions Criticality Noted Date Comments Alendronate Sodium 06/24/2012 Burning sensation and difficulty breathing Proton Pump Inhibitors Hives 02/20/2002 nexium documented as of this encounter (statuses as of 07/04/2023) Medications Medication Sig Dispensed Refills Start Date [...] directed. Change every 10 days. Supplied by [employer]: [phone] 0 Active Dexcom G6 Transmitter Use as directed. Change every 90 days. Supplied by [employer]: [phone] 0 Active Dexcom G6 Ac/Dc Rewinder Device Use as directed. Supplied by [employer]: [phone] 0 Active Fluticasone Propionate 50 MCG/ACT Nasal Suspension (Flonase)Indication s:Chronic rhinitis Administer 2 Sprays into each nostril in the morning. 16 g 1 11/01/2022 Active Pregabalin 150 MG Oral Capsule (Lyrica)Indications :Diabetic polyneuropathy associated with type 1 diabetes mellitus (HCC) TAKE ONE CAPSULE BY MOUTH TWICE A DAY 180 Capsule 1 01/11/2023 08/02/20 23 Active Isosorbide Mononitrate ER 60 MG Oral [...] 1 causing neurological disease, not at goal ([facility]) TAKE ONE TABLET BY MOUTH TWICE A DAY WITH FOOD 180 Tablet 3 11/16/2022 11/16/19 24 Active Metoprolol Succinate ER 50 MG Oral Tablet Extended Release 24 Hour (toPROL XL) TAKE ONE TABLET BY MOUTH TWICE A DAY 180 Tablet 3 11/16/2022 11/16/19 24 Active Warfarin Sodium 5 MG Oral Tablet (Coumadin)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 Up to 315 [...] instructions. 255 g 0 04/04/2023 Active Digoxin 125 MCG Oral Tablet (Lanoxin) TAKE 1 TABLET BY MOUTH DAILY 90 Tablet 3 08/21/2022 05/04/20 23 Discontinu ed(Medicat ion/Dose Changed) documented as of this encounter (statuses as of 07/04/2023) Active Problems Problem Noted Date Diagnosed Date Type 2 diabetes mellitus with foot ulcer (CODE) 09/19/2022 Gastro-esophageal reflux disease without esophag itis 03/27/2022 Major depressive disorder, recurrent, unspecifie d 02/10/2021 DM (diabetes mellitus) type II, controlled, with peripheral vascular disorder 12/08/2020 Coronary artery disease of n ative artery of [place] heart with stable angina pectoris 12/08/2020 History [...] as of this encounter (statuses as of 07/04/2023) Resolved Problems Problem Noted Date Diagnosed Date [...] as of this encounter (statuses as of 07/04/2023) Immunizations Name Administration Dates Next Due COVID-19 [...] encounter Miscellaneous Notes * Telephone Encounter - Zeinab Nagel LPN - 05/16/2023 10:18 AM EDT Patient seen by Cardio on 05/04 * Telephone Encounter - Destinee Ceron LPN - 04/23/2023 8:32 AM EDT Unable to reach patient, rings, picks up and hangs up * Telephone Encounter - Cristela Guardado LPN - 04/06/2023 11:05 AM EDT Provider to address: n/a Reason for Call: Advice Contact: Telephone Call Contact Type: Care Coordination Outcome: called pt. No answer. Left message to return call. Total Time including non face to face (minutes): 5 * Telephone Encounter - Sofie Blanchard CCMA - 04/05/2023 2:29 PM EDT Called pt 2X, picks up and hangup. Please assist pt when she calls back, please see message below. * Telephone Encounter - Natalia Heller PA-C - 04/04/2023 4:34 PM EDT Please let her know what cardiology said: If the patient can not wait to see me in April and can not move up her appointment, and she is having continued frequent episodes of angina then I think her best option is for her to go to the emergency department. Someone will see her there and evaluate her. Admit if needed. Natalia Hleler PA-C 04/04/2023 4:34 PM documented in this encounter Plan of Treatment Upcoming Encounters Date Type Department Care Team (Latest Contact Info) Description 07/05/2023 1:00 PM EST Office Visit [facility] [place] [address] [address] Natalia Heller PA-C [address] [facility] [address] 07/09/2023 10:45 AM EST Office Visit Podiatry, [place] [address] [place] [address] [facility] [address] [place] [address] 08/03/2023 10:00 AM EST Office Visit Pharm[facility], [place] [address] [address] [facility] [address] [place] [address] 08/03/2023 10:30 AM EST Anticoagulation Pharmacy, [place] [address] [address] [place], [facility] [address] [address] 09/18/2023 8:30 AM EST Hospital Encounter ENDO [facility], Endoscopy Room [facility] [address] [place] [phone] Anselmo Sung MD [address] [place] [address] 09/18/2023 8:30 AM EST - 09/18/2023 9:00 AM EST Surgery ENDO [facility], Endoscopy Room [facility] [address] [place] [phone] Anselmo Sung MD [address] [place] [address] COLONOSCOPY FLEXIBLE PROXIMAL DIAGNOSTIC 10/18/2023 9:00 AM EDT Office Visit Cardiology, [facility] [address] [place] [address] Nesha Denney CRNP [address] [place] [address] Scheduled Procedures Name Priority Associated Diagnoses Date/Ti [...] D LEVEL ONCE IN A LIFETIME-USE SMARTSET# 62732 Completed 06/18/2020, 07/25/2019, 05/20/2015, Additional history exists LUNG CANCER SCREENING - USE SMARTSET 31569 Completed 12/22/2022, 12/09/2021, 12/24/2020, Additional history exists Influenza Vaccine (FLU shot) Completed , 05/08/2022, 06/18/2020, Additional history exists GARDASIL-HPV IMMUNIZATION SERIES Aged Out No longer eligible based on patient's age to complete this topic MENINGOCOCCAL (MENACTRA/MENVEO) Aged Out No longer eligible based on patient's age to complete this topic documented as of this encounter Medical Devices Implanted Type Area Energy Assistant Device Identifier Shelf Expiration Date Model / Serial / Lot Graft Cervical 6x8 [id number] - [id number] Implanted:Qt y: 2 on 08/21/2008 at [place] [facility] [place] Tissue - Human Spine Cervical [employer] [id number] / / 14 Mm Variable Rescue Implanted:Qt y: 2 on 08/21/2008 at [place] [facility] [place] N/A: Spine Cervical [id number] / / Description:14 mm variable r escue Screw 3.5x14 Mntr Fa [id number] - [id number] Implanted:Qt y: 10 on 07/13/2010 at [place] [facility] [place] N/A: Spine Cervical JN[place] : [employer] [id number] / / documented as of this encounter [...] the patient have Health Care Power of Fiber Technologist? No Full Code 07/13/2010 12:29 PM 07/17/2010 4:03 PM Thi s order reflects the patients wishes and were consensually agreed upon. Question Answer Comments Discussion of Advance Directives occurred with: Not Discussed Does the patient have a Living Will? No Does the patient have Health Care Power of Fiber Technologist? No Full Code 01/07/2010 6:23 AM 01/07/2010 2:05 PM This or emi reflects the patients wishes and were consensually agreed upon. Question Answer Comments Discussion of Advance Directives occurred with: Patient/Family Does the patient have a Living Will? No Does the patient have Health Care Power of Fiber Technologist? No Full Code 10/15/2009 7:12 AM 10/15/2009 9:26 PM This order reflects the patients wishes and were consensually agreed upon. Care Teams Heavy Equipment Operator/Paver Relationship Specialty Start Date End Date Alfa Jaramillo MD [address] [place] [address] PCP - General 05/06/00 documented as of this encounter
--- OUTSIDE RECORDS SUMMARY | 2023-11-15 18:43 | External Medical Summary | Summary of Care ---
Author Name Unknown Organization [facility] Address [address] [facility] [place] [address] Phone [phone] Care Team Providers Care Appellate Court Clerk Name Role Phone Alfa Jaramillo MD Primary Care Provider +1- [phone] Reason for Visit * Reason Comments Dosage Adjustment In Person (Anticoag Cl inic) Diabetes Follow-Up Encounter Details Date Type Department Care Team (Late st Contact Info) Description 06/18/2023 10:10 AM EST Office Visit Pharmacy, [place] [address] [place] [address] [facility] [address] [place] [address] Type 2 diabetes mellitus with foot ulcer, with long-term current use of insulin (HCC)*; DM (diabetes mellitus) type II, controlled, with peripheral vascular disorder (HCC) Allergies Active Allergy Reactions Criticality Noted Date Comments Alendronate Sodium 06/24/2012 Burning sensation and difficulty breathing Proton Pump Inhibitors Hives 02/20/2002 nexium documented as of this encounter (statuses as of 06/18/2023) Medications Medication Sig Dispensed Refills Start Date [...] directed. Change every 10 days. Supplied by [employer]: [phone] 0 Active Dexcom G6 Transmitter Use as directed. Change every 90 days. Supplied by [facility] [employer]: [phone] 0 Active Dexcom G6 Hot Dog Vendor Device Use as directed. Supplied by [facility] [employer]: [phone] 0 Active Fluticasone Propionate 50 MCG/ACT Nasal [...] Warfarin Sodium 5 MG Oral Tablet (Coumadin)Indication s:residential current use of anticoagulant therapy,Deep vein thrombosis (DVT) ([facility]) TAKE ONE TABLET TO ONE AND ONE-HALF TABLET BY MOUTH EVERY DAY DIRECTED BY [facility] 135 Tablet 3 08/12/2022 4 Active Insulin Aspart 100 UNIT/ML Injection Solution (NovoLOG)Indications :Type 2 diabetes mellitus with foot ulcer, with long-term current use of insulin ([facility]) Use with insulin pump. Up to 315 [...] as of this encounter (statuses as of 06/18/2023) Active Problems Problem Noted Date Diagnosed Date Type 2 diabetes mellitus with foot ulcer (CODE) 09/19/2022 Gastro-esophageal reflux disease without esophag itis 03/27/2022 Major depressive disorder, recurrent, unspecifie d 02/10/2021 DM (diabetes mellitus) type II, controlled, with peripheral vascular disorder 12/08/2020 Coronary artery disease of n ative artery of [place] heart with stable angina pectoris 12/08/2020 History [...] Lipid Taxonomy. 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 0 05/03/2005 documented as of this encounter (statuses as of 06/18/2023) Resolved Problems Problem Noted Date Diagnosed Date [...] 6 months Hypopotassemia 08/22/2008 07/17/2011 Follow-up examination, pedroo wing other surgery 08/20/2008 07/17/2011 Statin intolerance [...] as of this encounter (statuses as of 06/18/2023) Immunizations Name Administration Dates Next Due COVID-19 [...] as of this encounter Progress Notes * Yovana Mcgee, [facility] - 06/18/2023 10:07 AM EST Images from the original note [...] 09/19/22 Medtronic 630G Insulin Pump (Serial Number: [id number]) Infusion Set: Quick set Insulin: Novolog Basal Rate: midnight to 6am 7.0 units/hour 6am to 12am: 8.2 units/hour 12am to midnight 8.6 units/hour Bolus: 25 units with breakfast, 45 units with lunch and 40 units with supper (adds difference to preset bolus of 25 for lunch and supper) Bolus wizard: on and using ICR: 5 (using preset) ISF: 15 Blood Glucose Goals: 96-180 Active Insulin Time: 3hours Back up plan in event of pump malfunction: Novolog vial with insulin needles Toujeo U300 60 units BID Carelink Blood Glucose Review: Hypoglycemia Assessment: 1. Do you know what the symptoms of hypoglycemia are? Yes 2. How often can you tell by your symptoms if your blood sugar is low? Never 3. In a typical week, how many times will your blood sugar go below 70 mg/dL? Never Patient Active Problem List Diagnosis Code intermediate manager current use of anticoagulant therapy Z79.01 Cervical [...] - [facility]) E11.51 Coronary artery disease of [place] artery of [place] heart with stable angina pectoris ([facility] [...] directed. Change every 10 days. Supplied by [employer]: [phone] DexAmpex G6 Transmitter Use as directed. Change every 90 days. Supplied by [employer]: [phone] [employer] Hot Dog Vendor Device Use as directed. Supplied by [employer]: [phone] Fluticasone Propionate 50 MCG/ACT Nasal Suspension (Flonase) [...] following reasons: The patient has a prior [place] or stroke diagnosis Estimated body mass index is 33.24 kg/m as calculated from the following: Height as of 04/04/23: 1.651 m (5' 5"). Weight as of 05/18/23: 90.6 kg (199 lb 12 oz). BP Readings from Last 3 Encounters: 05/18/23 130/74 05/04/23 138/78 04/04/23 116/60 No components found for: "[id number]" No results found for: "MICROALBUMIN" Lab Results Component Value Date/Time LDL CHOLESTEROL (CALCULATED) - [facility] 83 01/02/2023 02:10 PM LDL CHOLESTEROL (CALCULATED) - [facility] 81 10/19/2017 09:32 AM LDL CHOLESTEROL (DIRECT MEASURE) - [facility] 93 12/08/2020 09:59 AM LDL CHOLESTEROL (DIRECT MEASURE) - [facility] 102 06/18/2020 09:03 AM LDL CHOLESTEROL (DIRECT MEASURE) - [facility] 47 01/05/2014 04:02 PM Lab Results Component Value Date/Time ALT 43 07/09/1996 11:15 AM ALT - [facility] 26 09/19/2022 08:19 AM ALT - [facility] 35 06/18/2020 09:03 AM Assessment & Plan: Glycemic control is stable but not at goal Patient agreeable to adjust medications as noted below. Basal settings continued as glucose is stable overnight and between meals. ICR/fixed dose continued as glucose is stable postprandially. ISF strengthened as glucose is not correcting to goal range. Patient to SMBG at least 4 times daily, before each meal and at bedtime. Patient aware to contact clinic if any hypoglycemia before next visit. Reviewed rule of 15s. Reviewed appropriate management of hyperglycemia as noted in pump start documentation. PAP information sent and message sent to [facility] for ozempic PAP help. DEXCOM G7 reader requested through [employer]. Diabetes Medications: Diabetic Medications: Metformin 1000mg twice daily Ozempic 2 mg once weekly- Sundays GFR 80 as of 09/19/22 Medtronic 630G Insulin Pump (Serial Number: [id number]) Infusion Set: Quick set Insulin: Novolog Basal [...] Diabetes Health Maintenance: up-to-date Return to Clinic: 6 week(s) 06/18/2023 Yovana Mcgee [facility] Clinical Pharmacist Medication Therapy Disease Management 06/18/2023, 10:07 AM documented in this encounter Plan of Treatment Upcoming Encounters Date Type Department Care Team (Latest Contact Info) Description 06/21/2023 10:45 AM EST Office Visit Podiatry, [facility] [address] [place] [address] Kenny Archibald DPM [address] [place] [address] 07/05/2023 1:00 PM EST Office Visit [place] [address] [place] [address] Natalia Heller PA-C [address] [place] [address] 08/03/2023 10:00 AM EST Office Visit Pharmacy, [place] [address] [place] [facility] [place] [address] [facility] [address] [place] [facility] [place] [address] 08/03/2023 10:30 AM EST Anticoagulation Pharmacy, [place] [address] [place] [facility] [place] [address] [facility] [address] [place] [facility] [place] [address] 09/18/2023 8:30 AM EST Hospital Encounter ENDO [facility], Endoscopy Room [facility] [address] [place] [phone] Anselmo Sung MD [address] [place] [address] 09/18/2023 8:30 AM EST - 09/18/2023 9:00 AM EST Surgery ENDO [facility], Endoscopy Room [facility] [address] [place] [phone] Anselmo Sung MD [address] [place] [address] COLONOSCOPY FLEXIBLE PROXIMAL DIAGNOSTIC 10/18/2023 9:00 AM EDT Office Visit Cardiology, [facility] [address] [place] [address] Nesha Denney CRNP [address] [place] [address] Scheduled Procedures Name Priority Associated Diagnoses Date/Ti [...] D LEVEL ONCE IN A LIFETIME-USE SMARTSET# 40718 Completed 06/18/2020, 07/25/2019, 05/20/2015, Additional history exists LUNG CANCER SCREENING - USE SMARTSET 41081 Completed 12/22/2022, 12/09/2021, 12/24/2020, Additional history exists Influenza Vaccine (FLU shot) Completed , 05/08/2022, 06/18/2020, Additional history exists GARDASIL-HPV IMMUNIZATION SERIES Aged Out No longer eligible based on patient's age to complete this topic MENINGOCOCCAL (MENACTRA/MENVEO) Aged Out No longer eligible based on patient's age to complete this topic documented as of this encounter Medical Devices Implanted Type Area Fire Coordinator Device Identifier Shelf Expiration Date Model / Serial / Lot Graft Cervical 6x8 [id number] - [id number] Implanted:Qt y: 2 on 08/21/2008 at [place] [facility] [place] Tissue - Human Spine Cervical [employer] [id number] / / 14 Mm Variable Rescue Implanted:Qt y: 2 on 08/21/2008 at [place] [facility] [place] [facility] N/A: Spine Cervical [id number] / / Description:14 mm variable r escue Screw 3.5x14 Mntr Fa [id number] - [id number] Implanted:Qt y: 10 on 07/13/2010 at [place] [facility] [place] [facility] N/A: Spine Cervical JN[place] : [employer] [id number] / / documented as of this encounter [...] the patient have Health Care Power of Division Commander? No Full Code 07/13/2010 12:29 PM 07/17/2010 4:03 PM Thi s order reflects the patients wishes and were consensually agreed upon. Question Answer Comments Discussion of Advance Directives occurred with: Not Discussed Does the patient have a Living Will? No Does the patient have Health Care Power of Division Commander? No Full Code 01/07/2010 6:23 AM 01/07/2010 2:05 PM This or emi reflects the patients wishes and were consensually agreed upon. Question Answer Comments Discussion of Advance Directives occurred with: Patient/Family Does the patient have a Living Will? No Does the patient have Health Care Power of Division Commander? No Full Code 10/15/2009 7:12 AM 10/15/2009 9:26 PM This order reflects the patients wishes and were consensually agreed upon. Care Teams Appellate Court Clerk Relationship Specialty Start Date End Date Alfa Jaramillo MD [address] [place] [address] PCP - General 05/06/00 documented as of this encounter
--- OUTSIDE RECORDS SUMMARY | 2023-11-15 18:43 | External Medical Summary ---
Author Name Unknown Address Unknown Organization [id number]:[facility] [place] [address] [place] [address] Laboratory Report Ordering Provider Test Date Status GARY WARD 07/05/2023 13:32:57 Final Observation Date Value Abnormality Reference (Units ) Status MYCODE SPECIMEN-SST 07/05/2023 13:32:57 Freezing of extracted DNA, whole blood and/or serum. Final Performing Location [facility] [place] [address] [place] [id number]
--- OUTSIDE RECORDS SUMMARY | 2023-11-15 18:43 | External Medical Summary ---
Author Name Unknown Address Unknown Organization [id number]:[facility]ATORY [place] - [address] [place] [address] Laboratory Report Ordering Provider Test Date Status GARY WARD 07/05/2023 13:32:57 Final Observation Date Value Abnormality Reference (Units ) Status MYCODE SPECIMEN-SST 07/05/2023 13:32:57 Freezing of extracted DNA, whole blood and/or serum. Final Performing Location LAB[facility]ATORY [place] - [address] [place] [address]
--- OUTSIDE RECORDS SUMMARY | 2023-11-15 18:43 | External Medical Summary ---
Author Name Unknown Address Unknown Organization [id number]:[facility]ORY [facility] [place] - [address] [address] [place] [address] Laboratory Report Ordering Provider Test Date Status KACEY VALENTINE 07/05/2023 13:32:57 Final Observation Date Value Abnormality Reference (Units ) Status BUN 07/05/2023 13:32:57 11 6-20 (mg/dL) Final Creatinine 07/05/2023 13:32:57 0.8 0.5-1.0 (mg/dL) Final Glomerular filtration rate/1.73 sq M.predicted [Volume Rate/Area] in Serum, Plasma or Blood by Creatinine-based formula (CKD-EPI) 07/05/2023 13:32:57 78 >=60 (mL/min) Final eGFR is calculated based on the CKD-EPI 2020 equation SODIUM 07/05/2023 13:32:57 139 135-146 (m mol/L) Final Potassium 07/05/2023 13:32:57 4.7 3.5-5.1 (m mol/L) Final Cl 07/05/2023 13:32:57 103 98-107 (mm ol/L) Final CO2 07/05/2023 13:32:57 25 22-32 (mmo l/L) Final Anion gap 07/05/2023 13:32:57 11 7-15 (mmol /L) Final Glucose 07/05/2023 13:32:57 127 Above high normal 70 -120 (mg/dL) Final Albumin 07/05/2023 13:32:57 3.6 Below low normal 3.8 -5.0 (g/dL) Final AST (Aspartate aminotransferase) 07/05/2023 13:32:57 38 Above high normal 10-35 (U/L) Final Alk Phos 07/05/2023 13:32:57 101 35-130 (U/ L) Final Bilirubin, Total 07/05/2023 13:32:57 0.4 <=1 .2 (mg/dL) Final Calcium 07/05/2023 13:32:57 9.0 8.4-10.2 ( mg/dL) Final Protein 07/05/2023 13:32:57 6.7 6.0-8.3 (g /dL) Final ALT (Alanine aminotransferase) 07/05/2023 13:32:57 24 10-35 (U/L) Josh hudson Performing Location [facility]ORY [facility] [place] - [address] [facility] [address]
--- OUTSIDE RECORDS SUMMARY | 2023-11-15 18:43 | External Medical Summary ---
Author Name Unknown Address Unknown Organization K01:[facility]ORY [facility] [place] - [address] [place] [address] Laboratory Report Ordering Provider Test Date Status LETICIA HOOD 07/05/2023 13:32:57 Final Observation Date Value Abnormality Reference (Units ) Status Vitamin B12 07/05/2023 13:32:57 129 210-6167 (pg/mL) Final Performing Location LABORATORY [facility] - [address] [place] [address]
--- OUTSIDE RECORDS SUMMARY | 2023-11-15 18:43 | External Medical Summary ---
Author Name Unknown Address Unknown Organization K01:LAB[facility]ATORY [facility] - [address] [place] [address] Laboratory Report Ordering Provider Test Date Status LETICIA HOOD 07/05/2023 13:32:57 Final Warfarin Therapy
INR: 2 .0-3.0 conventional anticoagulation
INR: 2.5- 3.5 high intensity anticoagulation Observation Date Value Abnormality Reference (Units ) Status PT 07/05/2023 13:32:57 37.8 Above high normal 11 .6-15.2 (seconds) Final INR 07/05/2023 13:32:57 3.8 Above high normal 0. 8-1.2 Final Performing Location LABORATORY [facility] [place] - [address] [place] [address]
--- OUTSIDE RECORDS SUMMARY | 2023-11-15 18:43 | External Medical Summary | Summary of Care ---
Author Name Unknown Organization [facility] Address [address] [facility] [place] [address] Phone [phone] Care Team Providers Care Fruit Grader Operator Name Role Phone Alfa Jaramillo MD Primary Care Provider +1- [phone] Reason for Visit * Reason Comments Dosage Adjustment In Person (Anticoag Cl inic) Encounter Details Date Type Department Care Team (Latest Contact Info) Description 06/18/2023 10:40 AM EST Anticoagulation Pharmacy, [place] [address] [place] [address] [facility] [address] [place] [address] History of DVT (deep vein thrombosis)*; Chronic atrial fibrillation (HCC); Anticoagulation management encounter; [facility] current use of anticoagulant therapy Allergies Active [...] directed. Change every 10 days. Supplied by [employer]: [phone] 0 Active Dexcom G6 Transmitter Use as directed. Change every 90 days. Supplied by [employer]: [phone] 0 Active Dexcom G6 Public Safety Teacher Device Use as directed. Supplied by [facility]: [phone] Active Fluticasone Propionate 50 MCG/ACT Nasal [...] 1 causing neurological disease, not at goal ([facility]) TAKE ONE TABLET BY MOUTH TWICE [...] current use of insulin ([facility]) Use with insulin pump. Up to [...] artery disease of n ative artery of [place] heart with stable angina pectoris 12/08/2020 History [...] Per Lipid Taxonomy. Cervical spinal stenosis 08/21/2008 roasterman current use of anticoagulant therapy 0 05/03/2005 [...] of this encounter Progress Notes * Yovana Mcgee RPh - 06/18/2023 2:27 PM EST Medication Therapy Disease Management - Anticoagulation Patient: Graciela Mobley | : 1950 Subjective Patient-Reported Symptoms: Patient Findings Negatives: Signs/symptoms of thrombosis, Signs/symptoms of bleeding, Change in health, Change in alcohol use, Change in activity, Upcoming invasive procedure, Missed doses, Extra doses, Change in medications, Change in diet/appetite, Bruising Objective Current Warfarin Dose As of 06/18/2023 Warfarin maintenance plan: 5 mg (5 mg x 1) every day INR Result As of 06/18/2023 INR goal: 2.0-3.0 INR used for dosin.9 (06/18/2023) Assessment & Plan Warfarin Plan As of 06/18/2023 Full warfarin instructions: 5 mg every day Next INR check: 08/03/2023 Repeat PT/INR in 6 week(s) Weekly dose: not changed Additional Dosing [...] on this once procedure date is closer. Yovana Mcgee RPh Clinical Pharmacist 06/18/2023, 2:27 PM documented in this encounter Plan of Treatment Upcoming Encounters Date Type Department Care Team (Latest Contact Info) Description 06/21/2023 10:45 AM EST Office Visit Podiatry, [facility] [address] [facility] [place] [address] Kenny Archibald, [facility] [address] [facility] [place] [address] 07/05/2023 1:00 PM EST Office Visit Family Practice, [place] [address] [place] [facility] [place] [address] Natalia Heller PA-C [address] [place] [facility] [place] [address] 08/03/2023 10:00 AM EST Office Visit Pharmacy, [place] [address] [place] [facility] [address] [facility] [address] [place] [facility] [address] 08/03/2023 10:30 AM EST Anticoagulation Pharmacy, [place] [address] [place] [facility] [place] [address] [facility] [address] [place] [facility] [place] [address] 09/18/2023 8:30 AM EST Hospital Encounter ENDO OSS, Endoscopy Room [facility] [address] [place] [address] Anselmo Sung MD [address] [place] [address] 09/18/2023 8:30 AM EST - 09/18/2023 9:00 AM EST Surgery ENDO OSS, Endoscopy Room [facility] [address] [place] [address] Anselmo Sung MD [address] [place] [address] COLONOSCOPY FLEXIBLE PROXIMAL DIAGNOSTIC 10/18/2023 9:00 AM EDT Office Visit Cardiology, [facility] [address] [place] [address] Nesha Denney CRNP [address] [place] [address] Scheduled Procedures Name Priority Associated Diagnoses Date/Ti [...] D LEVEL ONCE IN A LIFETIME-USE SMARTSET# 25720 Completed 06/18/2020, 07/25/2019, 05/20/2015, Additional history exists LUNG CANCER SCREENING - USE SMARTSET 49719 Completed 12/22/2022, 12/09/2021, 12/24/2020, Additional history exists Influenza Vaccine (FLU shot) Completed , 05/08/2022, 06/18/2020, Additional history exists GARDASIL-HPV IMMUNIZATION SERIES Aged Out No longer eligible based on patient's age to complete this topic MENINGOCOCCAL (MENACTRA/MENVEO) Aged Out No longer eligible based on patient's age to complete this topic documented as of this encounter Medical Devices Implanted Type Area Inspector Timers Device Identifier Shelf Expiration Date Model / Serial / Lot Graft Cervical 6x8 [id number] - [id number] Implanted:Qt y: 2 on 08/21/2008 at OR [facility] [place] Tissue - Human Spine Cervical [employer] [id number] / / 14 Mm Variable Rescue Implanted:Qt y: 2 on 08/21/2008 at OR [facility] N/A: Spine Cervical [id number] / / Description:14 mm variable r escue Screw 3.5x14 Mntr Fa [id number] - [id number] Implanted:Qt y: 10 on 07/13/2010 at OR [facility] N/A: Spine Cervical JNJ : [employer] [id number] / / documented as of this encounter Procedures Procedure Name Priority Date/Time Associated Diagnosis Comments OUTSIDE LAB-PT/INR Routine 06/18/2023 documented in this encounter Results * OUTSIDE LAB-PT/INR (06/18/2023) INR-OUTSIDE LAB 2.9 History Per Patient LABORATORY documented in this encounter Visit Diagnoses Diagnosis History of DVT (deep vein thrombosis)- Primary Personal history of venous thrombosis and embolism Chronic atrial fibrillation (HCC) Atrial fibrillation Anticoagulation management encounter Encounter for therapeutic drug monitoring roasterman current use of anticoagulant therapy Encounter for [...] the patient have Health Care Power of Right Of Way Buyer? No Full Code 07/13/2010 12:29 PM 07/17/2010 4:03 PM Thi s order reflects the patients wishes and were consensually agreed upon. Question Answer Comments Discussion of Advance Directives occurred with: Not Discussed Does the patient have a Living Will? No Does the patient have Health Care Power of Right Of Way Buyer? No Full Code 01/07/2010 6:23 AM 01/07/2010 2:05 PM This or emi reflects the patients wishes and were consensually agreed upon. Question Answer Comments Discussion of Advance Directives occurred with: Patient/Family Does the patient have a Living Will? No Does the patient have Health Care Power of Right Of Way Buyer? No Full Code 10/15/2009 7:12 AM 10/15/2009 9:26 PM This order reflects the patients wishes and were consensually agreed upon. Care Teams Fruit Grader Operator Relationship Specialty Start Date End Date Alfa Jaramillo MD [address] [place] [address] PCP - General 05/06/00 documented as of this encounter
--- OUTSIDE RECORDS SUMMARY | 2023-11-15 18:44 | External Medical Summary | Summary of Care ---
Author Name Unknown Organization [facility] Address [address] [facility] [place] [address] Phone [phone] Care Team Providers Care Claim Professional Name Role Phone Alfa Jaramillo MD Primary Care Provider +1- [phone] Reason for Visit * Reason Onset Date Comments Order Request 06/12/2023 Electric wheelch air Encounter Details Date Type Department Care Team (Late st Contact Info) Description 06/12/2023 Telephone [facility] [address] [place] [address] Alfa Jaramillo MD [address] [place] [address] Order Request (Electric wheelchair) Allergies Active Allergy Reactions Criticality Noted Date Comments Alendronate Sodium 06/24/2012 Burning sensation and difficulty breathing Proton Pump Inhibitors Hives 02/20/2002 nexium documented as of this encounter (statuses as of 06/14/2023) Medications Medication Sig Dispensed Refills Start Date [...] directed. Change every 10 days. Supplied by [employer]: [phone] 0 Active Dexcom G6 Transmitter Use as directed. Change every 90 days. Supplied by [employer]: [phone] 0 Active Dexcom G6 Eyewear Manufacturing Tech Device Use as directed. Supplied by [facility]: [phone] 0 Active Fluticasone Propionate 50 MCG/ACT Nasal [...] 1 causing neurological disease, not at goal ([facility]) TAKE ONE TABLET BY MOUTH TWICE A DAY WITH FOOD 180 Tablet 3 11/16/2022 4 Active Metoprolol Succinate ER 50 MG Oral Tablet Extended Release 24 Hour (toPROL XL) TAKE ONE TABLET BY MOUTH TWICE A DAY 180 Tablet 3 11/16/2022 4 Active Warfarin Sodium 5 MG Oral Tablet (Coumadin)Indication s:half-way current use of anticoagulant therapy,Deep vein thrombosis (DVT) ([facility]) TAKE ONE TABLET TO ONE AND ONE-HALF TABLET BY MOUTH EVERY DAY DIRECTED BY [facility] 135 Tablet 3 08/12/2022 4 Active Insulin Aspart 100 UNIT/ML Injection Solution ([employer])Indications :Type 2 diabetes mellitus with foot ulcer, with long-term current use of insulin ([facility]) Use with insulin pump. Up to [...] as of this encounter (statuses as of 06/14/2023) Active Problems Problem Noted Date Diagnosed Date Type 2 diabetes mellitus with foot ulcer (CODE) 09/19/2022 Gastro-esophageal reflux disease without esophag itis 03/27/2022 Major depressive disorder, recurrent, unspecifie d 02/10/2021 DM (diabetes mellitus) type II, controlled, with peripheral vascular disorder 12/08/2020 Coronary artery disease of n ative artery of [place] heart with stable angina pectoris [...] Per Lipid Taxonomy. 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 current use of anticoagulant therapy 0 05/03/2005 documented as of this encounter (statuses as of 06/14/2023) Resolved Problems Problem Noted Date Diagnosed Date [...] as of this encounter (statuses as of 06/14/2023) Immunizations Name Administration Dates Next Due COVID-19 mRNA, LNP-s, No Pre serve, 2-Dose Series (Moderna) 10/13/2020,09/15/2020 COVID-19, mRNA, LNP-s, PF, B ooster, 100mcg/0.5mg (Moderna) 07/20/2021 Covid-19, Mrna, Lnp-s, Pf, B ivalent, 30 Mcg, IM, 12 yrs and above (Pfizer) 05/08/2022 Pneumococcal Conjugate Vacc, 13 Valent (Prevnar) 01/20/2016 Pneumococcal Polysaccharide PPV23 (Pneumovax) 01/15/2015,09/18/2006,06/06/2001 SEASONAL INFLUENZA, PF, 6 M & Above, [...] or making decisions? (5 years old or older No 05/02/2019 documented as of this encounter Miscellaneous Notes * Telephone Encounter - Natalia Heller PA-C - 06/14/2023 12:02 PM EST Needs appt - we have no supporting documentation that would support a chair Natalia Heller PA-C 06/14/2023 12:03 PM * Telephone Encounter - Priscilla Lopez MED ASSIST - 06/13/2023 3:48 PM EST Is this something you could order? * Telephone Encounter - Alfa Jaramillo MD - 06/13/2023 3:32 PM EST I have not seen pt for 2.5 years and ov notes will be needed for this order. If she has seen and discussed an electric wheelchair with another provider, can forward to them. Otherwise, she will need OV. * Telephone Encounter - María Osei OSA - 06/12/2023 10:01 AM EST An order was requested for this patient. Name of Requesting Provider: Patient Order Requested: Electric wheelchair Diagnosis/Reason for Request: No feeling at the bottom of feet/toe removed If order request is for Mammogram: Is the patient having any breast symptoms? N/A Is there a chance of ? N/A Has the patient had any breast problems in the past? NA What location AND department does the patient wish to have their order completed at? [facility] Fax Number, if applicable: [phone] Call Back Number: [phone] If the caller is not a current patient, please advise the patient to call their current PCP to havethe order's prior to being seen in our office. The patient was informed that our providers would not order anything (medication, labs, etc.) prior to being seen. documented in this encounter Plan of Treatment Upcoming Encounters Date Type Department Care Team (Latest Contact Info) Description 06/18/2023 10:10 AM EST Office Visit Pharmacy, [place] [address] [place] [facility] [place] [address] [facility] [address] [place] [facility] [place] [address] 06/18/2023 10:40 AM EST Anticoagulation Pharmacy, [place] [address] [place] [facility] [place] [address] [facility] [address] [place] [address] 06/21/2023 10:45 AM EST Office Visit Podiatry, [place] [address] [place] [address] [address] 07/05/2023 1:00 PM EST Office Visit Family Practice, [place] [address] [place] [facility] [place] [address] Natalia Heller PA-C [address] [place] [facility] [place] [address] 09/18/2023 8:30 AM EST Hospital Encounter ENDO [facility], Endoscopy Room [facility] [address] [place] [address] Anselmo Sung MD [address] [place] [address] 09/18/2023 8:30 AM EST - 09/18/2023 9:00 AM EST Surgery ENDO [facility], Endoscopy Room [facility] [address] [place] [address] Anselmo Sung MD [address] [place] [address] COLONOSCOPY FLEXIBLE PROXIMAL DIAGNOSTIC 10/18/2023 9:00 AM EDT Office Visit Cardiology, [facility] [address] [place] [address] Nesha Denney CRNP [address] [place] [address] Scheduled Procedures Name Priority Associated Diagnoses Date/Ti [...] 11/16/2020, 03/21/2018, Additional history exists COVID-19 Vaccine (24 season) 2023 05/08/2022, 07/20/2021, 10/13/2020, Additional history [...] D LEVEL ONCE IN A LIFETIME-USE SMARTSET# 75933 Completed 06/18/2020, 07/25/2019, 05/20/2015, Additional history exists LUNG CANCER SCREENING - USE SMARTSET 39991 Completed 12/22/2022, 12/09/2021, 12/24/2020, Additional history exists Influenza Vaccine (FLU shot) Completed , 05/08/2022, 06/18/2020, Additional history exists GARDASIL-HPV IMMUNIZATION SERIES Aged Out No longer eligible based on patient's age to complete this topic MENINGOCOCCAL (MENACTRA/MENVEO) Aged Out No longer eligible based on patient's age to complete this topic documented as of this encounter Medical Devices Implanted Type Area Web Site Developer Device Identifier Shelf Expiration Date Model / Serial / Lot Graft Cervical 6x8 [id number] - [id number] Implanted:Qt y: 2 on 08/21/2008 at OR [facility] Tissue - Human Spine Cervical [employer] [id number] / / 14 Mm Variable Rescue Implanted:Qt y: 2 on 08/21/2008 at OR [facility] N/A: Spine Cervical [id number] / / Description:14 mm variable r escue Screw 3.5x14 Mntr Fa [id number] - [id number] Implanted:Qt y: 10 on 07/13/2010 at OR [facility] N/A: Spine Cervical JNJ : [employer] [id number] / / documented as of this encounter [...] the patient have Health Care Power of Textile Engraver? No Full Code 07/13/2010 12:29 PM 07/17/2010 4:03 PM Thi s order reflects the patients wishes and were consensually agreed upon. Question Answer Comments Discussion of Advance Directives occurred with: Not Discussed Does the patient have a Living Will? No Does the patient have Health Care Power of Textile Engraver? No Full Code 01/07/2010 6:23 AM 01/07/2010 2:05 PM This or emi reflects the patients wishes and were consensually agreed upon. Question Answer Comments Discussion of Advance Directives occurred with: Patient/Family Does the patient have a Living Will? No Does the patient have Health Care Power of Textile Engraver? No Full Code 10/15/2009 7:12 AM 10/15/2009 9:26 PM This order reflects the patients wishes and were consensually agreed upon. Care Teams Claim Professional Relationship Specialty Start Date End Date Alfa Jaramillo MD [address] [place] [address] PCP - General 05/06/00 documented as of this encounter
--- OUTSIDE RECORDS SUMMARY | 2023-11-15 18:44 | External Medical Summary ---
Author Name Unknown Address Unknown Organization : Laboratory Report Ordering Provider Test Date Status LETICIA HOOD 06/18/2023 10:11:38 Final Therapeutic ranges for non-o perative patients:
Prophylaxsis/treatment of DVT: (Range:2.0-3.0)
Treatment of pulmonary embolism:(Range:2.0-3.0)
Prevention of systemic embolism from:
-tissue heart valves
-acute myocardial infarction
-valvular heart disease
-atrial fibrillation
(Range: 2.0-3.0)
Mechanical prosthetic valves: (Range: 2.5-3.5) Observation Date Value Abnormality Reference (Units ) Status INR in Capillary blood by Coagulation assay 06/18/2023 10:11:38 2.9 (INR) Final Performing Location
--- OUTSIDE RECORDS SUMMARY | 2023-11-15 18:44 | External Medical Summary | Summary of Care ---
Author Name Unknown Organization [facility] Address [address] [facility] [place] [address] Phone [phone] Care Team Providers Care Torch Shearer Name Role Phone Afla Jaramillo MD Primary Care Provider +1- [phone] Reason for Visit * Reason Onset Date Comments Order Request 06/12/2023 Electric wheelch air Encounter Details Date Type Department Care Team (Late st Contact Info) Description 06/12/2023 Telephone [facility] [address] [place] [address] Alfa Jaramillo MD [address] [place] [address] Order Request (Electric wheelchair) Allergies [...] directed. Change every 10 days. Supplied by [employer]: [phone] 0 Active Dexcom G6 Transmitter Use as directed. Change every 90 days. Supplied by [employer]: [phone] 0 Active Dexcom G6 Repair Electric Motor Assembler Device Use as directed. Supplied by [facility]: [phone] 0 Active Fluticasone Propionate 50 MCG/ACT Nasal [...] causing neurological disease, not at goal ([facility]) TAKE ONE TABLET BY MOUTH TWICE A DAY WITH FOOD 180 Tablet 3 11/16/2022 4 Active Metoprolol Succinate ER 50 MG Oral Tablet Extended Release 24 Hour (toPROL XL) TAKE ONE TABLET BY MOUTH TWICE A DAY 180 Tablet 3 11/16/2022 4 Active Warfarin Sodium 5 MG Oral Tablet (Coumadin)Indication s:[facility] current use of anticoagulant therapy,Deep vein thrombosis (DVT) ([facility]) TAKE ONE TABLET TO ONE AND ONE-HALF TABLET BY MOUTH EVERY DAY DIRECTED BY [facility] 135 Tablet 3 08/12/2022 4 Active Insulin Aspart 100 UNIT/ML Injection Solution (NovoLOG)Indications :Type 2 diabetes mellitus with foot ulcer, with long-term current use of insulin ([facility]) Use with insulin pump. Up to 315 [...] artery disease of n ative artery of [place] heart with stable angina pectoris 12/08/2020 History [...] Per Lipid Taxonomy. 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 [facility] Fax Number, if applicable: [phone] Call Back Number: [phone] If the caller is not a current [...] 06/18/2023 10:10 AM EST Office Visit Pharmacy, [place] [address] [facility] [place] [address] [facility] [address] [facility] [place] [address] 06/18/2023 10:40 AM EST Anticoagulation Pharmacy, [place] [address] [place] [facility] [place] [address] [facility] [address] [place] [address] 06/21/2023 10:45 AM EST Office Visit Podiatry, [place] [address] [place] [address] [address] 07/05/2023 1:00 PM EST Office Visit Family Practice, [place] [address] [facility] [place] [address] Natalia Heller PA-C [address] [place] [facility] [place] [address] 09/18/2023 8:30 AM EST Hospital Encounter ENDO [facility], Endoscopy Room [facility] [address] [place] [address] Anselmo Sung MD [address] [place] [address] 09/18/2023 8:30 AM EST - 09/18/2023 9:00 AM EST Surgery ENDO [facility], Endoscopy Room [facility] [address] [place] [address] Anselmo Sung MD [address] [place] [address] COLONOSCOPY FLEXIBLE PROXIMAL DIAGNOSTIC 10/18/2023 9:00 AM EDT Office Visit Cardiology, [facility] [address] [place] [address] Nesha Denney CRNP [address] [place] [address] Scheduled Procedures Name Priority Associated Diagnoses Date/Ti [...] D LEVEL ONCE IN A LIFETIME-USE SMARTSET# [id number] Completed 06/18/2020, 07/25/2019, 05/20/2015, Additional history exists LUNG CANCER SCREENING - USE SMARTSET 80184 Completed 12/22/2022, 12/09/2021, 12/24/2020, Additional history exists Influenza Vaccine (FLU shot) Completed , 05/08/2022, 06/18/2020, Additional history exists GARDASIL-HPV IMMUNIZATION SERIES Aged Out No longer eligible based on patient's age to complete this topic MENINGOCOCCAL (MENACTRA/MENVEO) Aged Out No longer eligible based on patient's age to complete this topic documented as of this encounter Medical Devices Implanted Type Area Enterprise Software Engineer Device Identifier Shelf Expiration Date Model / Serial / Lot Graft Cervical 6x8 [id number] - [id number] Implanted:Qt y: 2 on 08/21/2008 [place] [facility] [place] Tissue - Human Spine Cervical [employer] [id number] / / 14 Mm Variable Rescue Implanted:Qt y: 2 on 08/21/2008 [place] [facility] [place] N/A: Spine Cervical [id number] / / Description:14 mm variable r escue Screw 3.5x14 Mntr Fa [id number] - [id number] Implanted:Qt y: 10 on 07/13/2010 [place] [facility] [place] N/A: Spine Cervical JNJ : [employer] [id number] / / documented as of this encounter [...] the patient have Health Care Power of Internal Communications Specialist? No Full Code 07/13/2010 12:29 PM 07/17/2010 4:03 PM Thi s order reflects the patients wishes and were consensually agreed upon. Question Answer Comments Discussion of Advance Directives occurred with: Not Discussed Does the patient have a Living Will? No Does the patient have Health Care Power of Internal Communications Specialist? No Full Code 01/07/2010 6:23 AM 01/07/2010 2:05 PM This or emi reflects the patients wishes and were consensually agreed upon. Question Answer Comments Discussion of Advance Directives occurred with: Patient/Family Does the patient have a Living Will? No Does the patient have Health Care Power of Internal Communications Specialist? No Full Code 10/15/2009 7:12 AM 10/15/2009 9:26 PM This order reflects the patients wishes and were consensually agreed upon. Care Teams Torch Shearer Relationship Specialty Start Date End Date Alfa Jaramillo MD [address] [place] [address] PCP - General 05/06/00 documented as of this encounter
--- OUTSIDE RECORDS SUMMARY | 2023-11-15 18:44 | External Medical Summary | Summary of Care ---
Author Name Unknown Organization [facility] Address [address] [facility] [place] [address] Phone [phone] Care Team Providers Care Community Development Director Name Role Phone Alfa Jaramillo MD Primary Care Provider +1- [phone] Reason for Visit * Reason Onset Date Comments Order Request 06/12/2023 Electric wheelch air Encounter Details Date Type Department Care Team (Late st Contact Info) Description 06/12/2023 Telephone [facility] [address] [place] [address] Alfa Jaramillo MD [address] [place] [address] Order Request (Electric wheelchair) Allergies [...] directed. Change every 10 days. Supplied by [employer]: [phone] 0 Active Dexcom G6 Transmitter Use as directed. Change every 90 days. Supplied by [employer]: [phone] 0 Active Dexcom G6 Client Services Administrator Device Use as directed. Supplied by [facility]: [phone] 0 Active Fluticasone Propionate 50 MCG/ACT Nasal [...] 1 causing neurological disease, not at goal ([facility]) TAKE ONE TABLET BY MOUTH TWICE A DAY WITH FOOD 180 Tablet 3 11/16/2022 4 Active Metoprolol Succinate ER 50 MG Oral Tablet Extended Release 24 Hour (toPROL XL) TAKE ONE TABLET BY MOUTH TWICE A DAY 180 Tablet 3 11/16/2022 4 Active Warfarin Sodium 5 MG Oral Tablet (Coumadin)Indication s:intermediate current use of anticoagulant therapy,Deep vein thrombosis (DVT) ([facility]) TAKE ONE TABLET TO ONE AND ONE-HALF TABLET BY MOUTH EVERY DAY DIRECTED BY [facility] 135 Tablet 3 08/12/2022 4 Active Insulin Aspart 100 UNIT/ML Injection Solution (NovoLOG)Indications :Type 2 diabetes mellitus with foot ulcer, with long-term current use of insulin ([facility]) Use with insulin pump. Up to [...] artery disease of n ative artery of [place] heart with stable angina pectoris 12/08/2020 History [...] Lipid Taxonomy. 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 Patient states that she is scheduled with Natalia on July 05. I stated I will put a note in the appointment to discuss this at the appointment. Patient that stated "That's okay my just went and bought one outright". 06/14/2023 * Telephone Encounter - Natalia Heller PA-C [...] wish to have their order completed at? [employer] Fax Number, if applicable: [phone] Call Back Number: [phone] If the caller is not a current [...] 06/18/2023 10:10 AM EST Office Visit Pharmacy, [place] [address] [place] [address] [facility] [address] [place] [address] 06/18/2023 10:40 AM EST Anticoagulation Pharmacy, [place] [address] [place] [facility] [place] [address] [facility] [address] [place] [address] 06/21/2023 10:45 AM EST Office Visit Podiatry, [place] [address] [place] [address] Dragan Kenny Bar, DPM [address] [place] [address] 07/05/2023 1:00 PM EST Office Visit [facility] [address] [facility] [place] [address] Natalia Heller PA-C [address] [place] [facility] [place] [address] 09/18/2023 8:30 AM EST Hospital Encounter ENDO OSS, Endoscopy Room [facility] [address] [place] [phone] Anselmo Sung MD [address] [place] [address] 09/18/2023 8:30 AM EST - 09/18/2023 9:00 AM EST Surgery ENDO OSS, Endoscopy Room [facility] [address] [place] [phone] Anselmo Sung MD [address] [place] [address] COLONOSCOPY FLEXIBLE PROXIMAL DIAGNOSTIC 10/18/2023 9:00 AM EDT Office Visit Cardiology, [facility] [address] [place] [address] Nesha Denney CRNP [address] [place] [address] Scheduled Procedures Name Priority Associated Diagnoses Date/Ti [...] D LEVEL ONCE IN A LIFETIME-USE SMARTSET# 18678 Completed 06/18/2020, 07/25/2019, 05/20/2015, Additional history exists LUNG CANCER SCREENING - USE SMARTSET 05247 Completed 12/22/2022, 12/09/2021, 12/24/2020, Additional history exists Influenza Vaccine (FLU shot) Completed , 05/08/2022, 06/18/2020, Additional history exists GARDASIL-HPV IMMUNIZATION SERIES Aged Out No longer eligible based on patient's age to complete this topic MENINGOCOCCAL (MENACTRA/MENVEO) Aged Out No longer eligible based on patient's age to complete this topic documented as of this encounter Medical Devices Implanted Type Area Grinder Mill Operator Device Identifier Shelf Expiration Date Model / Serial / Lot Graft Cervical 6x8 [id number] - [id number] Implanted:Qt y: 2 on 08/21/[address] [facility] [place] Tissue - Human Spine Cervical [employer] [id number] / / 14 Mm Variable Rescue Implanted:Qt y: 2 on 08/21/[address] [facility] [place] N/A: Spine Cervical 1868-54-014 / / Description:14 mm variable r escue Screw 3.5x14 Mntr Fa [id number] - [id number] Implanted:Qt y: 10 on 07/13/[address] [facility] [place] N/A: Spine Cervical JNJ : [employer] [id number] / / documented as of this encounter [...] the patient have Health Care Power of Implementation Analyst? No Full Code 07/13/2010 12:29 PM 07/17/2010 4:03 PM Thi s order reflects the patients wishes and were consensually agreed upon. Question Answer Comments Discussion of Advance Directives occurred with: Not Discussed Does the patient have a Living Will? No Does the patient have Health Care Power of Implementation Analyst? No Full Code 01/07/2010 6:23 AM 01/07/2010 2:05 PM This or emi reflects the patients wishes and were consensually agreed upon. Question Answer Comments Discussion of Advance Directives occurred with: Patient/Family Does the patient have a Living Will? No Does the patient have Health Care Power of Implementation Analyst? No Full Code 10/15/2009 7:12 AM 10/15/2009 9:26 PM This order reflects the patients wishes and were consensually agreed upon. Care Teams Community Development Director Relationship Specialty Start Date End Date Alfa Jaramillo MD [address] [place] [address] PCP - General 05/06/00 documented as of this encounter
--- OUTSIDE RECORDS SUMMARY | 2023-11-15 18:44 | External Medical Summary | Summary of Care ---
Author Name Unknown Organization [facility] Address [address] [facility] [place] [address] Phone [phone] Care Team Providers Care Superintendent Maintenance Airports Name Role Phone Alfa Jaramillo MD Primary Care Provider +1- [phone] Reason for Visit * Reason Onset Date Comments Durable Medical Equipment 06/18/2023 Encounter Details Date Type Department Care Team (Late st Contact Info) Description 06/18/2023 Telephone Pharmacy, [facility] [address] [facility] [place] [address] [facility] [address] [facility] [address] Durable Medical Equipment Allergies Active Allergy Reactions Criticality Noted Date [...] directed. Change every 10 days. Supplied by [employer]: [phone] 0 Active Dexcom G6 Transmitter Use as directed. Change every 90 days. Supplied by [employer]: [phone] 0 Active Dexcom G6 Entry Level Electrician Device Use as directed. 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 Up to [...] artery disease of n ative artery of [place]zan[place] heart with stable angina pectoris 12/08/2020 History [...] encounter Miscellaneous Notes * Telephone Encounter - Shanthi Franks RPh - 06/18/2023 10:53 AM EST Submitted for patient to received Dexcom G7 continuous improvement black belt from [facility] via [employer]. Shanthi Franks, PharmD Clinical Pharmacist Medication Therapy Disease Management 06/18/2023, 10:53 AM documented in this encounter Plan of Treatment Upcoming Encounters Date Type Department Care Team (Latest Contact Info) Description 06/21/2023 10:45 AM EST Office Visit Podiatry, [facility] [address] [place] [address] [facility] [address] [place] [address] 07/05/2023 1:00 PM EST Office Visit Family [facility], [place] [address] [place] [address] Natalia Heller PA-C [address] [place] [address] 08/03/2023 10:00 AM EST Office Visit Pharmacy, [place] [address] [place] [address] [place], [facility] [address] [place] [address] 08/03/2023 10:30 AM EST Anticoagulation Pharmacy, [place] [address] [facility] [address] [place] [address] [facility], [place] [address] 09/18/2023 8:30 AM EST Hospital Encounter ENDO OSS, Endoscopy Room [facility] [address] [place] [address] Anselmo Sung MD [address] [place] [address] 09/18/2023 8:30 AM EST - 09/18/2023 9:00 AM EST Surgery ENDO [facility], Endoscopy Room [facility] [address] [place] [phone] Anselmo Sung MD [address] [place] [address] COLONOSCOPY FLEXIBLE PROXIMAL DIAGNOSTIC 10/18/2023 9:00 AM EDT Office Visit Cardiology, [facility] [address] [place] [address] Nesha Denney CRNP [address] [place] [address] Scheduled Procedures Name Priority Associated Diagnoses Date/Ti [...] 06/07/2024 06/07/2023, 1108/2021, 05/26/2021, Additional history exists DTaP,Tdap,and Td Vaccines (2 - Td or Tdap) 09/15/2024 09/15/2014, 07/15/2008, 02/09/1998 DXA Scan 02/19/2025 02/19/2023, 02/2020, 11/02/2017, Additional history exists Pneumococcal Vaccine: 65+ Years Completed 01/20/2016, 01/15/2015, 09/18/2006, Additional history exists VITAMIN D LEVEL ONCE IN A LIFETIME-USE SMARTSET# 09673 Completed 06/18/2020, 07/25/2019, 05/20/2015, Additional history exists LUNG CANCER SCREENING - USE SMARTSET 20966 Completed 12/22/2022, 12/09/2021, 12/24/2020, Additional history exists Influenza Vaccine (FLU shot) Completed , 05/08/2022, 06/18/2020, Additional history exists GARDASIL-HPV IMMUNIZATION SERIES Aged Out No longer eligible based on patient's age to complete this topic MENINGOCOCCAL (MENACTRA/MENVEO) Aged Out No longer eligible based on patient's age to complete this topic documented as of this encounter Medical Devices Implanted Type Area Supervisor Litharge Device Identifier Shelf Expiration Date Model / Serial / Lot Graft Cervical 6x8 [id number] - [id number] Implanted:Qt y: 2 on 08/21/2008 at OR [facility] [place] Tissue - Human Spine Cervical [employer] [id number] / / 14 Mm Variable Rescue Implanted:Qt y: 2 on 08/21/2008 at [place] [facility] [place] N/A: Spine Cervical 1868-54-014 / / Description:14 mm variable r escue Screw 3.5x14 Mntr Fa [id number] - [id number] Implanted:Qt y: 10 on 07/13/2010 at [place] [facility] [place] N/A: Spine Cervical JNJ : [employer] [id number] / / documented as of this encounter [...] the patient have Health Care Power of Project Account Manager? No Full Code 07/13/2010 12:29 PM 07/17/2010 4:03 PM Thi s order reflects the patients wishes and were consensually agreed upon. Question Answer Comments Discussion of Advance Directives occurred with: Not Discussed Does the patient have a Living Will? No Does the patient have Health Care Power of Project Account Manager? No Full Code 01/07/2010 6:23 AM 01/07/2010 2:05 PM This or emi reflects the patients wishes and were consensually agreed upon. Question Answer Comments Discussion of Advance Directives occurred with: Patient/Family Does the patient have a Living Will? No Does the patient have Health Care Power of Project Account Manager? No Full Code 10/15/2009 7:12 AM 10/15/2009 9:26 PM This order reflects the patients wishes and were consensually agreed upon. Care Teams Superintendent Maintenance Airports Relationship Specialty Start Date End Date Alfa Jaramillo MD [address] [place] [address] PCP - General 05/06/00 documented as of this encounter
--- OUTSIDE RECORDS SUMMARY | 2023-11-15 18:45 | External Medical Summary | Summary of Care ---
Author Name Unknown Organization [facility] Address [address] [facility] [place] [address] Phone [phone] Care Team Providers Care Caramel Candy Maker Name Role Phone Alfa Jaramillo MD Primary Care Provider +1- [phone] Reason for Visit * Reason Onset Date Comments Order Request 06/12/2023 Electric wheelch air Encounter Details Date Type Department Care Team (Late st Contact Info) Description 06/12/2023 Telephone [facility] [address] [place] [address] Alfa Jaramillo MD [address] [place] [address] Order Request (Electric wheelchair) Allergies Active Allergy Reactions Criticality Noted Date Comments Alendronate Sodium 06/24/2012 Burning sensation and difficulty breathing Proton Pump Inhibitors Hives 02/20/2002 nexium documented as of this encounter (statuses as of 06/12/2023) Medications Medication Sig Dispensed Refills Start Date [...] directed. Change every 10 days. Supplied by [facility]: [phone] 0 Active Dexcom G6 Transmitter Use as directed. Change every 90 days. Supplied by [facility]: [phone] 0 Active Dexcom G6 Oil Transport Driver Device Use as directed. Supplied by [facility]: [phone] 0 Active Fluticasone Propionate 50 MCG/ACT Nasal [...] 1 causing neurological disease, not at goal ([facility]) TAKE ONE TABLET BY MOUTH TWICE A DAY WITH FOOD 180 Tablet 3 11/16/2022 4 Active Metoprolol Succinate ER 50 MG Oral Tablet Extended Release 24 Hour (toPROL XL) TAKE ONE TABLET BY MOUTH TWICE A DAY 180 Tablet 3 11/16/2022 4 Active Warfarin Sodium 5 MG Oral Tablet (Coumadin)Indication s:half-way current use of anticoagulant therapy,Deep vein thrombosis (DVT) ([facility]) TAKE ONE TABLET TO ONE AND ONE-HALF TABLET BY MOUTH EVERY DAY DIRECTED BY [facility] 135 Tablet 3 08/12/2022 4 Active Insulin Aspart 100 UNIT/ML Injection Solution (NovoLOG)Indications :Type 2 diabetes mellitus with foot ulcer, with long-term current use of insulin ([facility]) Use with insulin pump. 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 [employer] Fax Number, if applicable: [phone] Call Back Number: [phone] If the caller is not a current patient, please advise the patient to call their current PCP to havethe order's prior to being seen in our office. The patient was informed that our providers would not order anything (medication, labs, etc.) prior to being seen. documented in this encounter Plan of Treatment Upcoming Encounters Date Type Department Care Team (Latest Contact Info) Description 06/13/2023 6:10 PM EST [facility] [place] [address] [facility] [address] [facility] [address] [facility] [address] 06/15/2023 6:10 PM EST Anticoagulation Pharmacy, [place] [address] [facility] [address] [facility] [address] [facility] [address] 06/21/2023 10:45 AM EST Office Visit Podiatry, [facility] [address] [place] [address] Kenny Archibald, JASMINE [address] [place] [address] 07/05/2023 1:00 PM EST Office Visit [facility] [address] [place] [facility] [address] Natalia Heller PA-C [address] [place] [address] 09/18/2023 8:30 AM EST Hospital Encounter ENDO [facility]SS[facility], Endoscopy Room [facility] [address] [place] [phone] Anselmo Sung MD [address] [place] [address] 09/18/2023 8:30 AM EST - 09/18/2023 9:00 AM EST Surgery ENDO [facility], Endoscopy Room [facility] [address] [place] [phone] Anselmo Sung MD [address] [place] [address] COLONOSCOPY FLEXIBLE PROXIMAL DIAGNOSTIC 10/18/2023 9:00 AM EDT Office Visit Cardiology, [facility] [address] [place] [address] Nesha Denney CRNP [address] [place] [address] Scheduled Procedures Name Priority Associated Diagnoses Date/Ti [...] 03/06, 02/10/2021, Additional history exists Albumin/Creatinine Ratio 01/03/202401/02/ 023, 09/19/2022, 04/18/2021, Additional history exists O2 ASSESSMENT COMPLETED IN PAST YEAR FOR COPD 05/04/2024 05/04/2023 Mammogram 06/07/2024 06/07/2023, 11/08/2021, 05/26/2021, Additional history exists DTaP,Tdap,and Td Vaccines (2 - Td or Tdap) 09/15/2024 09/15/2014, 07/15/2008, 02/09/1998 DXA Scan 02/19/2025 02/19/2023, 1002/2020, 11/02/2017, Additional history exists Pneumococcal Vaccine: 65+ Years Completed 01/20/2016, 01/15/2015, 09/18/2006, Additional history exists VITAMIN D LEVEL ONCE IN A LIFETIME-USE SMARTSET# 19832 Completed 06/18/2020, 07/25/2019, 05/20/2015, Additional history exists LUNG CANCER SCREENING - USE SMARTSET 35808 Completed 12/22/2022, 12/09/2021, 12/24/2020, Additional history exists Influenza Vaccine (FLU shot) Completed , 05/08/2022, 06/18/2020, Additional history exists GARDASIL-HPV IMMUNIZATION SERIES Aged Out No longer eligible based on patient's age to complete this topic MENINGOCOCCAL (MENACTRA/MENVEO) Aged Out No longer eligible based on patient's age to complete this topic documented as of this encounter Medical Devices Implanted Type Area Salt Cutter Device Identifier Shelf Expiration Date Model / Serial / Lot Graft Cervical 6x8 [id number] - [id number] Implanted:Qt y: 2 on 08/21/2008 [place] [facility] [place] - Human Spine Cervical [employer] [id number] / / 14 Mm Variable Rescue Implanted:Qt y: 2 on 08/21/2008 [place] [facility] [place] N/A: Spine Cervical 1868-54-014 / / Description:14 mm variable r escue Screw 3.5x14 Mntr Fa [id number] - [id number] Implanted:Qt y: 10 on 07/13/2010 [place] [facility] [place] N/A: Spine Cervical JNJ : [employer] [id number] / / documented as of this encounter [...] the patient have Health Care Power of Senior Recruitment Consultant? No Full Code 07/13/2010 12:29 PM 07/17/2010 4:03 PM Thi s order reflects the patients wishes and were consensually agreed upon. Question Answer Comments Discussion of Advance Directives occurred with: Not Discussed Does the patient have a Living Will? No Does the patient have Health Care Power of Senior Recruitment Consultant? No Full Code 01/07/2010 6:23 AM 01/07/2010 2:05 PM This or emi reflects the patients wishes and were consensually agreed upon. Question Answer Comments Discussion of Advance Directives occurred with: Patient/Family Does the patient have a Living Will? No Does the patient have Health Care Power of Senior Recruitment Consultant? No Full Code 10/15/2009 7:12 AM 10/15/2009 9:26 PM This order reflects the patients wishes and were consensually agreed upon. Care Teams Caramel Candy Maker Relationship Specialty Start Date End Date Alfa Jaramillo MD [address] [place] [address] PCP - General 05/06/00 documented as of this encounter
--- OUTSIDE RECORDS SUMMARY | 2023-11-15 18:45 | External Medical Summary | Summary of Care ---
Author Name Unknown Organization [facility] Address [address] [facility] [place] [address] Phone [phone] Care Team Providers Care Data Steward Name Role Phone Alfa Jaramillo MD Primary Care Provider +1- [phone] Reason for Visit * Reason Onset Date Comments Order Request 06/12/2023 Electric wheelch air Encounter Details Date Type Department Care Team (Late st Contact Info) Description 06/12/2023 Telephone [facility] [address] [place] [address] Alfa Jaramillo MD [address] [place] [address] Order Request (Electric wheelchair) Allergies Active Allergy Reactions Criticality Noted Date Comments Alendronate Sodium 06/24/2012 Burning sensation and difficulty breathing Proton Pump Inhibitors Hives 02/20/2002 nexium documented as of this encounter (statuses as of 06/13/2023) Medications Medication Sig Dispensed Refills Start Date [...] directed. Change every 10 days. Supplied by [employer]: [phone] 0 Active Dexcom G6 Transmitter Use as directed. Change every 90 days. Supplied by [employer]: [phone] 0 Active Dexcom G6 Light Truck Driver Device Use as directed. Supplied by [facility]: [phone] 0 Active Fluticasone Propionate 50 MCG/ACT Nasal [...] Warfarin Sodium 5 MG Oral Tablet (Coumadin)Indication s:jail current use of anticoagulant therapy,Deep vein thrombosis [...] as of this encounter (statuses as of 06/13/2023) Active Problems Problem Noted Date Diagnosed Date Type 2 diabetes mellitus with foot ulcer (CODE) 09/19/2022 Gastro-esophageal reflux disease without esophag itis 03/27/2022 Major depressive disorder, recurrent, unspecifie d 02/10/2021 DM (diabetes mellitus) type II, controlled, with peripheral vascular disorder 12/08/2020 Coronary artery disease of n ative artery of [place] heart with stable angina pectoris 12/08/2020 History [...] Per Lipid Taxonomy. 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 * Telephone Encounter - Sea LaurieSHAKIRA lei - 06/12/2023 10:01 AM EST An order [...] wish to have their order completed at? [facility] Fax Number, if applicable: [phone] Call Back Number: [phone] If the caller is not a current [...] Description 06/13/2023 6:10 PM EST Pharmacy Pharmacy, [place] [address] [facility], [place] [address] [facility] [address] [place] [facility] [address] Type 2 diabetes mellitus with foot ulcer, with long-term current use of insulin (HCC)*; Anticoagulation management encounter 06/18/2023 10:10 AM EST [facility] [place] [address] [facility] [address] [facility] [address] [facility] [address] 06/18/2023 10:40 AM EST Anticoagulation Pharmacy, [place] [address] [facility] [address] [facility] [address] [facility] [address] 06/21/2023 10:45 AM EST Office Visit Podiatry, [facility] [address] [place] [address] [facility] [address] [place] [address] 07/05/2023 1:00 PM EST Office Visit Family [facility], [place] [address] [facility] [address] Natalia Heller [facility]-C [address] [facility] [address] 09/18/2023 8:30 AM EST Hospital Encounter ENDO [facility], Endoscopy Room [facility] [address] [place] [phone] Anselmo Sung MD [address] [place] [address] 09/18/2023 8:30 AM EST - 09/18/2023 9:00 AM EST Surgery ENDO [facility], Endoscopy Room [facility] [address] [place] [address] Anselmo Sung MD [address] [place] [address] COLONOSCOPY FLEXIBLE PROXIMAL DIAGNOSTIC 10/18/2023 9:00 AM EDT Office Visit Cardiology, [facility] [address] [place] [address] Nesha Denney CRNP [address] [place] [address] Scheduled Procedures Name Priority Associated Diagnoses Date/Ti [...] D LEVEL ONCE IN A LIFETIME-USE SMARTSET# [id number] Completed 06/18/2020, 07/25/2019, 05/20/2015, Additional history exists LUNG CANCER SCREENING - USE SMARTSET 77509 Completed 12/22/2022, 12/09/2021, 12/24/2020, Additional history exists Influenza Vaccine (FLU shot) Completed , 05/08/2022, 06/18/2020, Additional history exists GARDASIL-HPV IMMUNIZATION SERIES Aged Out No longer eligible based on patient's age to complete this topic MENINGOCOCCAL (MENACTRA/MENVEO) Aged Out No longer eligible based on patient's age to complete this topic documented as of this encounter Medical Devices Implanted Type Area Political Science Chair Device Identifier Shelf Expiration Date Model / Serial / Lot Graft Cervical 6x8 [id number] - [id number] Implanted:Qt y: 2 on 08/21/2008 at OR [facility] Tissue - Human Spine Cervical [employer] [id number] / / 14 Mm Variable Rescue Implanted:Qt y: 2 on 08/21/2008 at OR [facility] N/A: Spine Cervical [id number] / / Description:14 mm variable r escue Screw 3.5x14 Mntr Fa [id number] - [id number] Implanted:Qt y: 10 on 07/13/2010 at OR [facility] N/A: Spine Cervical JNJ : [employer] [id number] / / documented as of this encounter [...] the patient have Health Care Power of Neuropsychiatrist? No Full Code 07/13/2010 12:29 PM 07/17/2010 4:03 PM Thi s order reflects the patients wishes and were consensually agreed upon. Question Answer Comments Discussion of Advance Directives occurred with: Not Discussed Does the patient have a Living Will? No Does the patient have Health Care Power of Neuropsychiatrist? No Full Code 01/07/2010 6:23 AM 01/07/2010 2:05 PM This or emi reflects the patients wishes and were consensually agreed upon. Question Answer Comments Discussion of Advance Directives occurred with: Patient/Family Does the patient have a Living Will? No Does the patient have Health Care Power of Neuropsychiatrist? No Full Code 10/15/2009 7:12 AM 10/15/2009 9:26 PM This order reflects the patients wishes and were consensually agreed upon. Care Teams Data Steward Relationship Specialty Start Date End Date Alfa Jaramillo MD [address], [place] [id number] PCP - General 05/06/00 documented as of this encounter
--- OUTSIDE RECORDS SUMMARY | 2023-11-15 18:45 | External Medical Summary | Summary of Care ---
Author Name Unknown Organization [facility] Address [address] [facility] [place] [address] Phone [phone] Care Team Providers Care Car Seat Upholsterer Name Role Phone Alfa Jaramillo MD Primary Care Provider [phone]- [phone] Reason for Visit * Reason Onset Date Comments Order Request 06/12/2023 Electric wheelch air Encounter Details Date Type Department Care Team (Late st Contact Info) Description 06/12/2023 Telephone [facility] [address] [place] [address] Alfa Jaramillo MD [address] [place] [address] Order Request (Electric wheelchair) Allergies [...] directed. Change every 10 days. Supplied by [facility]: [phone] 0 Active Dexcom G6 Transmitter Use as directed. Change every 90 days. Supplied by [facility]: [phone] 0 Active Dexcom G6 Machine Bender Device Use as directed. Supplied by [facility]: [phone] 0 Active Fluticasone Propionate 50 MCG/ACT Nasal [...] neurological disease, not at goal ([facility]) TAKE ONE TABLET BY MOUTH TWICE A DAY WITH FOOD 180 Tablet 3 11/16/2022 4 Active Metoprolol Succinate ER 50 MG Oral Tablet Extended Release 24 Hour (toPROL XL) TAKE ONE TABLET BY MOUTH TWICE A DAY 180 Tablet 3 11/16/2022 4 Active Warfarin Sodium 5 MG Oral Tablet (Coumadin)Indication s:custodial current use of anticoagulant therapy,Deep vein thrombosis (DVT) ([facility]) TAKE ONE TABLET TO ONE AND ONE-HALF TABLET BY MOUTH EVERY DAY DIRECTED BY [facility] 135 Tablet 3 08/12/2022 4 Active Insulin Aspart 100 UNIT/ML Injection Solution (NovoLOG)Indications :Type 2 diabetes mellitus with foot ulcer, with long-term current use of insulin ([facility]) Use with insulin pump. 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 [facility] Fax Number, if applicable: [phone] Call Back Number: [phone] If the caller is not a current [...] Description 06/13/2023 6:10 PM EST Pharmacy Pharmacy, [place] [address] [facility], [place] [address] [facility] [address] [place] [facility] [address] Type 2 diabetes mellitus with foot ulcer, with long-term current use of insulin (HCC)*; Anticoagulation management encounter 06/18/2023 10:10 AM EST Office Visit Pharmacy, [place] [address] [facility], [place] [address] [facility] [address] [facility], [place] [address] 06/18/2023 10:40 AM EST Anticoagulation Pharmacy, [place] [address] [facility], [place] [address] [facility] [address] [facility], [place] [address] 06/21/2023 10:45 AM EST Office Visit Podiatry, [place] [address] [place] [address] [facility] [address] [place] [address] 07/05/2023 1:00 PM EST Office Visit Family Practice, [place] [address] [facility] [address] Natalia Heller PALoiC [address] [facility] [address] 09/18/2023 8:30 AM EST Hospital Encounter ENDO [facility], Endoscopy Room [facility] [address] [place] [phone] Anselmo Sung MD [address] [place] [address] 09/18/2023 8:30 AM EST - 09/18/2023 9:00 AM EST Surgery ENDO [facility], Endoscopy Room [facility] [address] [place] [phone] Anselmo Sung MD [address] [place] [address] COLONOSCOPY FLEXIBLE PROXIMAL DIAGNOSTIC 10/18/2023 9:00 AM EDT Office Visit Cardiology, [facility] [address] [place] [address] Nesha Denney CRNP [address] [place] [address] Scheduled Procedures Name Priority Associated Diagnoses Date/Ti [...] D LEVEL ONCE IN A LIFETIME-USE SMARTSET# [id number] Completed 06/18/2020, 07/25/2019, 05/20/2015, Additional history exists LUNG CANCER SCREENING - USE SMARTSET 84131 Completed 12/22/2022, 12/09/2021, 12/24/2020, Additional history exists Influenza Vaccine (FLU shot) Completed , 05/08/2022, 06/18/2020, Additional history exists GARDASIL-HPV IMMUNIZATION SERIES Aged Out No longer eligible based on patient's age to complete this topic MENINGOCOCCAL (MENACTRA/MENVEO) Aged Out No longer eligible based on patient's age to complete this topic documented as of this encounter Medical Devices Implanted Type Area School Custodian Device Identifier Shelf Expiration Date Model / Serial / Lot Graft Cervical 6x8 [id number] - [id number] Implanted:Qt y: 2 on 08/21/2008 at OR [facility] [place] Tissue - Human Spine Cervical [employer] [id number] / / 14 Mm Variable Rescue Implanted:Qt y: 2 on 08/21/2008 at OR [facility] [place] N/A: Spine Cervical [id number] / / Description:14 mm variable r escue Screw 3.5x14 Mntr Fa [id number] - [id number] Implanted:Qt y: 10 on 07/13/2010 at OR [facility] [place] N/A: Spine Cervical JNJ : [employer] [id number] / / documented as of this encounter [...] the patient have Health Care Power of Supervisor Agency Appointments? No Full Code 07/13/2010 12:29 PM 07/17/2010 4:03 PM Thi s order reflects the patients wishes and were consensually agreed upon. Question Answer Comments Discussion of Advance Directives occurred with: Not Discussed Does the patient have a Living Will? No Does the patient have Health Care Power of Supervisor Agency Appointments? No Full Code 01/07/2010 6:23 AM 01/07/2010 2:05 PM This or emi reflects the patients wishes and were consensually agreed upon. Question Answer Comments Discussion of Advance Directives occurred with: Patient/Family Does the patient have a Living Will? No Does the patient have Health Care Power of Supervisor Agency Appointments? No Full Code 10/15/2009 7:12 AM 10/15/2009 9:26 PM This order reflects the patients wishes and were consensually agreed upon. Care Teams Car Seat Upholsterer Relationship Specialty Start Date End Date Alfa Jaramillo MD [address] [place] [address] PCP - General 05/06/00 documented as of this encounter
--- OUTSIDE RECORDS SUMMARY | 2023-11-15 18:45 | External Medical Summary | Summary of Care ---
Author Name Unknown Organization [facility] Address [address] [facility] [place] [address] Phone [phone] Care Team Providers Care Metallographer Name Role Phone Alfa Jaramillo MD Primary Care Provider +1- [phone] Reason for Visit * Reason Comments Appointment Encounter Details Date Type Department Care Team (Late st Contact Info) Description 06/13/2023 6:10 PM [facility] Pharmacy Pharmacy, [place] [address] [place] [address] [facility] [address] [place] [address] Type 2 diabetes mellitus with foot ulcer, with long-term current use of insulin (HCC)*; Anticoagulation management encounter Allergies Active Allergy Reactions Criticality Noted Date [...] directed. Change every 10 days. Supplied by [facility]: [phone] 0 Active Dexcom G6 Transmitter Use as directed. Change every 90 days. Supplied by [facility]: [phone] 0 Active Dexcom G6 Brand Recorder Device Use as directed. Supplied by [facility]: [phone] 0 Active Fluticasone Propionate 50 MCG/ACT Nasal [...] 1 causing neurological disease, not at goal ([facility]) TAKE ONE TABLET BY MOUTH TWICE A DAY WITH FOOD 180 Tablet 3 11/16/2022 4 Active Metoprolol Succinate ER 50 MG Oral Tablet Extended Release 24 Hour (toPROL XL) TAKE ONE TABLET BY MOUTH TWICE A DAY 180 Tablet 3 11/16/2022 4 Active Warfarin Sodium 5 MG Oral Tablet (Coumadin)Indication s:FCI current use of anticoagulant therapy,Deep vein thrombosis (DVT) ([facility]) TAKE ONE TABLET TO ONE AND ONE-HALF TABLET BY MOUTH EVERY DAY DIRECTED BY [facility] 135 Tablet 3 08/12/2022 4 Active Insulin Aspart 100 UNIT/ML Injection Solution (NovoLOG)Indications :Type 2 diabetes mellitus with foot ulcer, with long-term current use of insulin ([facility]) Use with insulin pump. Up [...] artery disease of n ative artery of [place] heart with stable angina pectoris 12/08/2020 History [...] as of this encounter Progress Notes * Trina Mireles PHARM Tech - 06/13/2023 9:01 AM EST Patient Phone Numbers Spoke with patient to schedule [facility] appointment for diabetes and anticoagulation management. Appointment scheduled as noted below. 06/18/2023 Thank you, Trina Mireles Building Services Engineer [facility] ([facility]) (formerly Telepharmacy) [phone] 06/13/2023,9:01 AM documented in this encounter Plan of Treatment Upcoming Encounters Date Type Department Care Team (Latest Contact Info) Description 06/18/2023 10:10 AM EST Office Visit Pharmacy, [place] [address] [place] [address] [facility] [place] [address] 06/18/2023 10:40 AM EST Anticoagulation Pharmacy, [place] [address] [place] [address] [facility] [place] [address] 06/21/2023 10:45 AM EST Office Visit Podiatry, [place] [address] [place] [address] [facility] [address] [place] [address] 07/05/2023 1:00 PM EST Office Visit Family [facility] [address] [facility], [place] [address] Natalia Heller PA-C [address] [facility], [place] [address] 09/18/2023 8:30 AM EST Hospital Encounter ENDO [facility], Endoscopy Room [facility] [address] [place] [phone] Anselmo Sung MD [address] [place] [address] 09/18/2023 8:30 AM EST - 09/18/2023 9:00 AM EST Surgery ENDO [facility], Endoscopy Room [facility] [address] [place] [address] Anselmo Sung MD [address] [place] [address] COLONOSCOPY FLEXIBLE PROXIMAL DIAGNOSTIC 10/18/2023 9:00 AM EDT Office Visit Cardiology, [facility] [address] [place] [address] Nesha Denney CRNP [address] [place] [address] Scheduled Procedures Name Priority Associated Diagnoses Date/Ti [...] D LEVEL ONCE IN A LIFETIME-USE SMARTSET# [id number] Completed 06/18/2020, 07/25/2019, 05/20/2015, Additional history exists LUNG CANCER SCREENING - USE SMARTSET 96137 Completed 12/22/2022, 12/09/2021, 12/24/2020, Additional history exists Influenza Vaccine (FLU shot) Completed , 05/08/2022, 06/18/2020, Additional history exists GARDASIL-HPV IMMUNIZATION SERIES Aged Out No longer eligible based on patient's age to complete this topic MENINGOCOCCAL (MENACTRA/MENVEO) Aged Out No longer eligible based on patient's age to complete this topic documented as of this encounter Medical Devices Implanted Type Area Crisis Specialist Device Identifier Shelf Expiration Date Model / Serial / Lot Graft Cervical 6x8 [id number] - [id number] Implanted:Qt y: 2 on 08/21/2008 at [place] [facility] [place] Tissue - Human Spine Cervical [employer] [id number] / / 14 Mm Variable Rescue Implanted:Qt y: 2 on 08/21/2008 at [place] [facility] [place] N/A: Spine Cervical 1868-54-014 / / Description:14 mm variable r escue Screw 3.5x14 Mntr Fa [id number] - [id number] Implanted:Qt y: 10 on 07/13/2010 at [place] [facility] [place] N/A: Spine Cervical JNJ : [employer] [id number] / / documented as of this encounter Visit Diagnoses Diagnosis Type 2 diabetes mellitus with foot ulcer, with long-term current use of insulin (HCC)- Primary Anticoagulation management encounter Encounter for therapeutic drug monitoring Encounter for colonoscopy due to history of [...] the patient have Health Care Power of Livestock Trader? No Full Code 07/13/2010 12:29 PM 07/17/2010 4:03 PM Thi s order reflects the patients wishes and were consensually agreed upon. Question Answer Comments Discussion of Advance Directives occurred with: Not Discussed Does the patient have a Living Will? No Does the patient have Health Care Power of Livestock Trader? No Full Code 01/07/2010 6:23 AM 01/07/2010 2:05 PM This or emi reflects the patients wishes and were consensually agreed upon. Question Answer Comments Discussion of Advance Directives occurred with: Patient/Family Does the patient have a Living Will? No Does the patient have Health Care Power of Livestock Trader? No Full Code 10/15/2009 7:12 AM 10/15/2009 9:26 PM This order reflects the patients wishes and were consensually agreed upon. Care Teams Metallographer Relationship Specialty Start Date End Date Alfa Jaramillo MD [address] [place] [address] PCP - General 05/06/00 documented as of this encounter
--- OUTSIDE RECORDS SUMMARY | 2023-11-15 18:45 | External Medical Summary | Summary of Care ---
Author Name Unknown Organization [facility] Address [address] [place] [address] Phone [phone] Care Team Providers Care Men'S Designer Name Role Phone Alfa Jaramillo MD Primary Care Provider [phone]- [phone] Reason for Visit * Reason Comments Follow Up Left great toe * Evaluate & Treat - Unlimited Visits (Within 30 days (routine)) - Authorized Specialty Diagnoses / Procedures Referred By Contilia t Referred To Contact Podiatry Diagnoses Open wound of toe, initial encounter Alfa Jaramillo MD [address] [place] [address] Referral ID Status Reason Start Date Expiration Date Visits Requested Visits Authorized [id number] Authorized Specialty Services Required 3 [id number] Encounter Details Date Type Department Care Team (Late st Contact Info) Description 06/07/2023 1:30 PM EDT Office Visit Podiatry, [place] [id number] [place] [address] Kenny Archibald DPM [address] [place] [address] Diabetic polyneuropathy associated with type 1 diabetes mellitus (HCC)*; Hypertrophy of nail; Skin ulcer of left great toe with fat layer exposed (HCC); Open wound of toe, initial encounter [S91.109A] Allergies Active Allergy Reactions Criticality Noted Date Comments Alendronate Sodium 06/24/2012 Burning sensation and difficulty breathing Proton Pump Inhibitors Hives 02/20/2002 nexium documented as of this encounter (statuses as of 06/07/2023) Medications Medication Sig Dispensed Refills Start Date [...] directed. Change every 10 days. Supplied by [employer]: [phone] 0 Active Dexcom G6 Transmitter Use as directed. Change every 90 days. Supplied by [employer]: [phone] 0 Active Dexcom G6 Computer Security Manager Device Use as directed. Supplied by [employer]: [phone] 0 Active Fluticasone Propionate 50 MCG/ACT Nasal [...] neurological disease, not at goal ([facility]) TAKE ONE TABLET BY MOUTH [...] as of this encounter (statuses as of 06/07/2023) Active Problems Problem Noted Date Diagnosed Date [...] as of this encounter (statuses as of 06/07/2023) Resolved Problems Problem Noted Date Diagnosed Date [...] as of this encounter (statuses as of 06/07/2023) Immunizations Name Administration Dates Next Due COVID-19 [...] of this encounter Progress Notes * Kenny Archibald, JASMINE - 06/07/2023 1:24 PM EDT Subjective: Patient presents in office today for open ulceration left great toe. Patient states that she has been putting cream on it for the past month but it hasn't been healing. Patient told that she should know to see me as soon as she noticed a problem since she already lost her right great toe years ago. HISTORY Past Medical History: Diagnosis Date Asthma with COPD (chronic obstructive pulmonary disease) Benign neoplasm of colon 03/16/09 adenomatous polyp--repeat 6 months Benign neoplasm of colon 12/09/09 adenomatous polyps repeat 6 months Benign neoplasm of colon 08/08/11 Adenomatous polyp Breast cancer (HCC) 2015 Left breast cancer- invasive ductal carcinoma Carpal tunnel syndrome 10/11/2009 Cervical spinal stenosis 08/21/2008 DM type 2, goal A1c below 7 1989 Dyslipidemia, goal LDL below 100 07/15/2009 Per Lipid Taxonomy. half-way (current) use of anticoagulants Major depressive disorder, [...] performed by Buffy Castro MD at OR [facility] AMPUTATION OF TOE Right 05/02/2019 AMPUTATION TOE METATARSOPHALANGEAL JOINT performed by Kenny Archibald DPM at OR [facility] ARTHROPLASTY KNEE TOTAL Right 05/2016 Dr Reynoso BX LYMPH NODE DEEP AXIL Left 04/07/2015 BIOPSY LYMPH NODE DEEP AXILLARY OPEN performed by Buffy Castro MD at OR [facility] CARPAL TUNNEL SURGERY 10/15/2009 NEUROPLASTY MEDIAN NERVE AT CARPAL TUNNEL performed by CHELSI DICKERSON at OR [facility] CARPAL TUNNEL SURGERY 01/07/2010 NEUROPLASTY MEDIAN NERVE AT CARPAL TUNNEL performed by CHELSI DICKERSON at OR [facility] COLONOSCOPY 12/09/2009 adenomatous polyps repeat 6 months [...] performed by Anselmo Sung MD at ENDOSCOPY [facility] COLONOSCOPY, DIAGNOSTIC (RECTUM) 03/21/2018 adenomatous polyp, diverticulosis, repeat 2 yrs/COLONOSCOPY FLEXIBLE PROXIMAL DIAGNOSTIC performed by Anselmo Sung MD at ENDOSCOPY [facility] COLONOSCOPY, DIAGNOSTIC (RECTUM) 01/15/2014 COLONOSCOPY FLEXIBLE PROXIMAL DIAGNOSTIC performed by Anselmo Sung MD at ENDOSCOPY [facility] COLONOSCOPY, DIAGNOSTIC (RECTUM) 11/16/2020 Hemorrhoids, diverticulosis sigmoid colon, multi polyps / biopsy benign adenomatous polyps / 1 yearrecall / COLONOSCOPY FLEXIBLE PROXIMAL DIAGNOSTIC performed by Anselmo Sung MD at ENDOSCOPY [facility] COLONOSCOPY/REMOVE LESION 03/16/2009 repeat 6 months DILATION AND CURETTAGE (D&C) 1996 D&C ENDO DECOMPRESS SPINAL CORD W/LAMINOTOMY, CERVICAL 07/13/2010 LAMINECTOMY DECOMPRESSION SPINAL CORD POSTERIOR CERVICAL performed by CHELSI DICKERSON at OR [facility] IDENTIFY SENTINEL NODE, RADIOACTIVE TRACER Left 04/07/2015 INJECTION PROCEDURE FOR IDENTIFICATION SENTINEL NODE performed by Buffy Castro MD at OR [facility] KNEE ARTHROSCOPY, DIAGNOSTIC 12/2012 Left knee - [...] performed by Buffy Castro MD at OR [facility] NECK SPINE FUSION (CERV, BELOW C2) 08/21/2008 ARTHRODESIS SPINE ANTERIOR CERVICAL performed by CHELSI DICKERSON at OR [facility] NECK SPINE FUSION (CERV, BELOW C2) 07/13/2010 ARTHRODESIS SPINE POSTERIOR CERVICAL performed by CHELSI DICKERSON at OR [facility] RADIATION THERAPY MANAGEMENT Left 07/10/2015 REMOVE NECK SPINE LAMINA, 1-2 SEGS 07/13/2010 LAMINECTOMY POSTERIOR CERVICAL ONE OR TWO VERTEBRAL SEGMENTS performed by CHELSI DICKERSON at OR [facility] SENTINEL LYMPH NODE BIOPSY PERFORMED Left 04/07/2015 SPINE SEG FIX, POST, 3-6 SEG, INSERT 07/13/2010 POSTERIOR SPINE SEGMENTAL INSTRUMENTATION 3 TO 6 PSF performed by CHELSI DICKERSON at OR [facility] Family History Problem Relation Age of Onset [...] on file Occupational History Comment: retired from [employer] Tobacco Use Smoking status: Former Packs/day: 2.00 [...] directed. Change every 10 days. Supplied by [employer]: [phone] Dexcom G6 Transmitter Use as directed. Change every 90 days. Supplied by [facility]: [phone] Dexcom G6 Computer Security Manager Device Use as directed. Supplied by [facility]: [phone] Fluticasone Propionate 50 MCG/ACT Nasal Suspension (Flonase) [...] No weakness Objective: Vascular examination: DP 2/4 bilateral PT 1/4 bilateral SPVFT 3sec no digital hair, mild edema, cold feet Dermatological examination: Ulceration IPJ left great toe measuring .6cm x .2cm extends into sub cutaneous tissue. No erythema or signs of infection nails appear dystrophic Orthopedic examination: previous right hallux amputation Neurological examination: Epicritic sensation severely diminished +parasthesias +burning Assessment: The primary encounter diagnosis was Diabetic polyneuropathy associated with type 1 diabetes mellitus (HCC). Diagnoses of Hypertrophy of nail and Skin ulcer of left great toe with fat layer exposed (HCC) were also pertinent to this visit. Plan: Discussed importance of patient getting podiatric care Debridement of ulceration left great toe measuring .6cm x .2cm with removal of devitalized skin andsubcutaneous tissue. Silvadene/Bandaid Tubefoam pad great toe Trimmed dystrophic nails x 9 documented in this encounter Nursing Notes * Wally Solo MED ASSIST - 06/07/2023 1:13 PM EDT Follow up left great pain. Pain for several months. documented in this encounter Plan of Treatment Upcoming Encounters Date Type Department Care Team (Latest Contact Info) Description 06/13/2023 6:10 PM EST Pharmacy Pharmacy, [address] [address] [facility] [address] [place] [address] 06/15/2023 6:10 PM EST Anticoagulation Pharmacy, [place] [address] [place] [facility] [place] [address] [facility] [address] [place] [facility] [place] [address] 06/21/2023 10:45 AM EST Office Visit Podiatry, [facility] [address] [place] [address] Kenny Archibald, JASMINE [address] [place] [address] 07/05/2023 1:00 PM EST Office Visit [facility] [address] [facility], [place] [address] Natalia Heller PA-C [address] [place] [facility] [place] [address] 09/18/2023 8:30 AM EST Hospital Encounter ENDO [facility], Endoscopy Room [facility] [address] [place] [phone] Anselmo Sung MD [address] [place] [address] 09/18/2023 8:30 AM EST - 09/18/2023 9:00 AM EST Surgery ENDO [facility], Endoscopy Room [facility] [address] [place] [phone] Anselmo Sung MD [address] [place] [address] COLONOSCOPY FLEXIBLE PROXIMAL DIAGNOSTIC 10/18/2023 9:00 AM EDT Office Visit Cardiology, [facility] [address] [place] [address] Nesha Denney CRNP [address] [place] [address] Scheduled Orders Name Type Priority Associated Diagnoses Orde r Schedule SUBQ DEBRIDEMENT, FIRST 20 CM2 Procedures Routine Skin ulcer of left great toe with fat layer exposed (HCC) Ordered: 06/07/2023 TRIM DYSTROPHIC NAILS, ANY # Procedures Routine Diabetic polyneuropathy associated with type 1 diabetes mellitus (HCC) Hypertrophy of nail Ordered: 06/07/2023 Scheduled Procedures Name Priority Associated Diagnoses Date/Ti [...] 2023 05/08/2022, 07/20/2021, 10/13/2020, Additional history exists Mammogram 06/06/2023 06/06/2022, 05/07, 05/20/2020, Additional history exists HbA1c 07/05/2023 01/02/2023, 09/06, 03/20/2022, Additional history exists DIG LEVEL FOR MEDICATION MONITORING YEARLY 09/19/2023 09/19/2022, 03/20/2022, 12/08/2020, Additional history exists GFR 09/19/2023 09/19/2022, 03/06, 02/10/2021, Additional history exists Albumin/Creatinine Ratio 01/03/2024 023, 09/19/2022, 04/18/2021, Additional history exists O2 ASSESSMENT COMPLETED IN PAST YEAR FOR COPD 05/04/2024 05/04/2023 DTaP,Tdap,and Td Vaccines (2 - Td or Tdap) 09/15/2024 09/15/2014, 07/15/2008, 02/09/1998 DXA Scan 02/19/2025 02/19/2023, 02/2020, 11/02/2017, Additional history exists Pneumococcal Vaccine: 65+ Years Completed 01/20/2016, 01/15/2015, 09/18/2006, Additional history exists VITAMIN D LEVEL ONCE IN A LIFETIME-USE SMARTSET# [id number] Completed 06/18/2020, 07/25/2019, 05/20/2015, Additional history exists LUNG CANCER SCREENING - USE SMARTSET 08959 Completed 12/22/2022, 12/09/2021, 12/24/2020, Additional history exists Influenza Vaccine (FLU shot) Completed , 05/08/2022, 06/18/2020, Additional history exists GARDASIL-HPV IMMUNIZATION SERIES Aged Out No longer eligible based on patient's age to complete this topic MENINGOCOCCAL (MENACTRA/MENVEO) Aged Out No longer eligible based on patient's age to complete this topic documented as of this encounter Medical Devices Implanted Type Area Bulk Delivery Driver Device Identifier Shelf Expiration Date Model / Serial / Lot Graft Cervical 6x8 [id number] - [id number] Implanted:Qt y: 2 on 08/21/2008 at OR [facility] Tissue - Human Spine Cervical [employer] [id number] / / 14 Mm Variable Rescue Implanted:Qt y: 2 on 08/21/2008 at OR [facility] N/A: Spine Cervical [id number] / / Description:14 mm variable r escue Screw 3.5x14 Mntr Fa [id number] - [id number] Implanted:Qt y: 10 on 07/13/2010 at OR [facility] N/A: Spine Cervical JNJ : [employer] [id number] / / documented as of this encounter Visit Diagnoses Diagnosis Diabetic polyneuropathy associated with type 1 diabetes mellitus (HCC)- Primary Hypertrophy of nail Other specified disease of nail Skin ulcer of left great toe with fat layer exposed (HCC) Open wound of toe, initial encounter [S91.109A] Encounter for colonoscopy due to history of [...] the patient have Health Care Power of Ship Fitter? No Full Code 07/13/2010 12:29 PM 07/17/2010 4:03 PM Thi s order reflects the patients wishes and were consensually agreed upon. Question Answer Comments Discussion of Advance Directives occurred with: Not Discussed Does the patient have a Living Will? No Does the patient have Health Care Power of Ship Fitter? No Full Code 01/07/2010 6:23 AM 01/07/2010 2:05 PM This or emi reflects the patients wishes and were consensually agreed upon. Question Answer Comments Discussion of Advance Directives occurred with: Patient/Family Does the patient have a Living Will? No Does the patient have Health Care Power of Ship Fitter? No Full Code 10/15/2009 7:12 AM 10/15/2009 9:26 PM This order reflects the patients wishes and were consensually agreed upon. Care Teams Men'S Designer Relationship Specialty Start Date End Date Alfa Jaramillo MD [address] [place] [address] PCP - General 05/06/00 documented as of this encounter
--- OUTSIDE RECORDS SUMMARY | 2023-11-15 18:46 | External Medical Summary | Summary of Care ---
Author Name Unknown Organization [facility] Address [address] [facility] [place] [address] Phone [phone] Care Team Providers Care Back Stayer Name Role Phone Alfa Jaramillo MD Primary Care Provider +1- [phone] Reason for Visit * Reason Comments Appointment No Show Encounter Details Date Type Department Care Team (Latest Contact Info) Description 06/01/2023 6:10 PM EDT Anticoagulation Pharmacy, [place] [address] [place] [address] [facility] [address] [place] [address] Anticoagulation management encounter* Allergies Active Allergy Reactions Criticality Noted Date Comments Alendronate Sodium 06/24/2012 Burning sensation and difficulty breathing Proton Pump Inhibitors Hives 02/20/2002 nexium documented as of this encounter (statuses as of 06/01/2023) Medications Medication Sig Dispensed Refills Start Date [...] directed. Change every 10 days. Supplied by [employer]: [phone] 0 Active Dexcom G6 Transmitter Use as directed. Change every 90 days. Supplied by [employer]: [phone] 0 Active Dexcom G6 Upper Shaper Device Use as directed. Supplied by [employer]: [phone] 0 Active Fluticasone Propionate 50 MCG/ACT Nasal [...] causing neurological disease, not at goal ([facility]) TAKE ONE TABLET BY MOUTH TWICE A DAY WITH FOOD 180 Tablet 3 11/16/2022 4 Active Metoprolol Succinate ER 50 MG Oral Tablet Extended Release 24 Hour (toPROL XL) TAKE ONE TABLET BY MOUTH TWICE A DAY 180 Tablet 3 11/16/2022 4 Active Warfarin Sodium 5 MG Oral Tablet (Coumadin)Indication s:[facility] current use of anticoagulant therapy,Deep vein thrombosis (DVT) ([facility]) TAKE ONE TABLET TO ONE AND ONE-HALF TABLET BY MOUTH EVERY DAY DIRECTED BY [facility] 135 Tablet 3 08/12/2022 4 Active Insulin Aspart 100 UNIT/ML Injection Solution ([employer])Indications :Type 2 diabetes mellitus with foot ulcer, with long-term current use of insulin ([facility]) Use with insulin pump. 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 Cervical spinal stenosis 08/21/2008 [facility] current use of anticoagulant therapy 0 05/03/2005 documented as of this encounter (statuses as of 06/01/2023) Resolved Problems Problem Noted Date Diagnosed Date [...] as of this encounter (statuses as of 06/01/2023) Immunizations Name Administration Dates Next Due COVID-19 [...] as of this encounter Progress Notes * Sakina Heath, faucets assembler - 06/01/2023 8:23 AM EDT Patient Phone Numbers Left message on patients answering machine to schedule [facility] appointment for coag management. [facility] message sent --no Clinic will follow up again in 2-3 week(s). Thank you, Sakina Heath Heavy Machinery Operator [facility] 06/01/2023,8:23 AM documented in this encounter Plan of Treatment Upcoming Encounters Date Type Department Care Team (Latest Contact Info) Description 06/07/2023 10:45 AM EDT Imaging Radiology [address], [address] [place] [address] 06/13/2023 6:10 PM EST Pharmacy Pharmacy, [place] [address] [place] [address] [facility] [address] [place] [address] 06/15/2023 6:10 PM EST Anticoagulation Pharmacy, [place] [address] [place] [address] [facility] [address] [place] [address] 07/05/2023 1:00 PM EST Office Visit Family [facility], [place] [address] [place] [phone] [facility] [address] [facility] [address] 09/18/2023 8:30 AM EST Hospital Encounter ENDO [facility], Endoscopy Room [facility] [address] [place] [phone] Anselmo Sung MD [address] [place] [address] 09/18/2023 8:30 AM EST - 09/18/2023 9:00 AM EST Surgery ENDO [facility], Endoscopy Room [facility] [address] [place] [phone] Anselmo Sung MD [address] [place] [address] COLONOSCOPY FLEXIBLE PROXIMAL DIAGNOSTIC 10/18/2023 9:00 AM EDT Office Visit Cardiology, [facility] [address] [place] [address] Nesha Denney CRNP [address] [place] [address] Scheduled Procedures Name Priority Associated Diagnoses Date/Ti [...] Zoster Vaccines (2 of 3) 04/20/2017 02/23/2017 DIABETES-EYE EXAM 10/28/2021 10/28/2020, , 05/13/2019, Additional history exists [...] D LEVEL ONCE IN A LIFETIME-USE SMARTSET# [id number] Completed 06/18/2020, 07/25/2019, 05/20/2015, Additional history exists LUNG CANCER SCREENING - USE SMARTSET 95089 Completed 12/22/2022, 12/09/2021, 12/24/2020, Additional history exists Influenza Vaccine (FLU shot) Completed , 05/08/2022, 06/18/2020, Additional history exists GARDASIL-HPV IMMUNIZATION SERIES Aged Out No longer eligible based on patient's age to complete this topic MENINGOCOCCAL (MENACTRA/MENVEO) Aged Out No longer eligible based on patient's age to complete this topic documented as of this encounter Medical Devices Implanted Type Area Cannery Worker Device Identifier Shelf Expiration Date Model / Serial / Lot Graft Cervical 6x8 [id number] - [id number] Implanted:Qt y: 2 on 08/21/2008 at OR [facility] Tissue - Human Spine Cervical [employer] [id number] / / 14 Mm Variable Rescue Implanted:Qt y: 2 on 08/21/2008 at OR [facility] N/A: Spine Cervical [id number] / / Description:14 mm variable r escue Screw 3.5x14 Mntr Fa [id number] - [id number] Implanted:Qt y: 10 on 07/13/2010 at OR [facility] N/A: Spine Cervical JNJ : [employer] [id number] / / documented as of this encounter Visit Diagnoses Diagnosis Anticoagulation management encounter- Primary Encounter for therapeutic drug monitoring Encounter for [...] the patient have Health Care Power of Coverstitch Machine Operator? No Full Code 07/13/2010 12:29 PM 07/17/2010 4:03 PM Thi s order reflects the patients wishes and were consensually agreed upon. Question Answer Comments Discussion of Advance Directives occurred with: Not Discussed Does the patient have a Living Will? No Does the patient have Health Care Power of Coverstitch Machine Operator? No Full Code 01/07/2010 6:23 AM 01/07/2010 2:05 PM This or emi reflects the patients wishes and were consensually agreed upon. Question Answer Comments Discussion of Advance Directives occurred with: Patient/Family Does the patient have a Living Will? No Does the patient have Health Care Power of Coverstitch Machine Operator? No Full Code 10/15/2009 7:12 AM 10/15/2009 9:26 PM This order reflects the patients wishes and were consensually agreed upon. Care Teams Back Stayer Relationship Specialty Start Date End Date Alfa Jaramillo MD [address] [facility] [address] PCP - General 05/06/00 documented as of this encounter
--- OUTSIDE RECORDS SUMMARY | 2023-11-15 18:46 | External Medical Summary | Summary of Care ---
Author Name Unknown Organization [facility] Address [address] [place] [address] Phone [phone] Care Team Providers Care Assistant Superintendent Name Role Phone Alfa Jaramillo MD Primary Care Provider [phone] Reason for Visit * Reason Comments Appointment No Show Encounter Details Date Type Department Care Team Description 05/25/2023 Anticoagulation Pharmacy, [address] [address] [facility] [address] [place] [address] Anticoagulation management encounter* Allergies Active Allergy Reactions Severity Noted Date Comments Alendronate Sodium 06/24/2012 Burning sensation and difficulty breathing Proton Pump Inhibitors Hives 02/20/2002 nexium documented as of this encounter (statuses as of 05/25/2023) Medications Medication Sig Dispensed Refills Start Date [...] directed. Change every 10 days. Supplied by [employer]: [phone] 0 Active Dexcom G6 Transmitter Use as directed. Change every 90 days. Supplied by [employer]: [phone] 0 Active Dexcom G6 Fish Filleter Device Use as directed. 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 05/03/2005 documented as of this encounter (statuses as of 05/25/2023) Resolved Problems Problem Noted Date Resolved Date Major depressive disorder, single episode, unspe cified 12/08/2020 09/11/2022 Overview: More specified/recent code listed on PL Open wound of left ankle 03/24/2020 021 Surgical wound breakdown, subsequent encounter 0 03/24/2020 02/10/2021 Type 2 diabetes mellitus wit h diabetic peripheral angiopathy without gangrene 07/25/2019 07/24/2022 Overview: duplicate Current use of insulin 07/25/2019 1 Diabetic foot infection 05/02/2019 07/25/20 19 Cellulitis of right lower extremity 05/02/2019 07/25/2019 Osteomyelitis 05/02/2019 07/25/2019 AF (atrial fibrillation) 02/18/2019 019 Overview: history History of adenomatous polyp of colon 10/19/2017 10/08/2018 Elevated LFTs 10/19/2017 10/08/2018 DVT (deep venous thrombosis) 03/11/2015 Carcinoma in situ, breast, ductal 03/02/2015 10/19/2017 Second degree sunburn 02/11/2013 02/20/2017 COPD, severity to be determined 08/30/2012 07/09/2013 Severe obesity with body mas s index (BMI) of 35.0 to 39.9 with serious comorbidity 01/17/2010 02/20/2017 Overview: Per Obesity Protocol, #19 ICD-10 update of inactive diagnosis Carpal tunnel syndrome 10/11/2009 8 Type 2 diabetes mellitus wit h hemoglobin A1c goal of less than 7.0% 06/03/2009 02/11/2013 Overview: Per Diabetes Taxonomy. ICD-10 update of inactive term DM TYPE 1 CAUSING NEURO DZ, NOT AT GOAL 06/03/2002/19/2018 Overview: Per Diabetes Taxonomy. Dyslipidemia, goal to be determined 06/01/2009 07/15/2009 Overview: Per Lipid Taxonomy. 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 ADVANCE DIRECTIVE INFORMATION 04/09/2007 ADVANCE DIRECTIVE INFORMATION 04/09/2007 Overview: No, Advance Directive brochure given to patient. Other B-complex deficiencies 03/27/2007 DVT (deep venous thrombosis) 02/20/2002 Anticoagulation management encounter 02/20/2002 10/19/2017 Myalgia and myositis 01/23/2000 10/19/2017 Allergic disorder 01/23/2000 07/17/2011 Edema 01/23/2000 10/19/2017 Type 2 diabetes mellitus wit h hemoglobin A1c goal of less than 7.0% 01/23/2000 06/03/2009 Overview: Per Diabetes Taxonomy. ICD-10 update of inactive term Tobacco use disorder 09/20/2015 documented as of this encounter (statuses as of 05/25/2023) Immunizations Name Administration Dates Next Due COVID-19 [...] oz pur e alcohol) 1 drink/3 months Food Insecurity Answer Date Recorded Within the past 12 months, y ou worried that your food would run out before you got money to buy more. Never true 04/28/2019 Within the past 12 months, t he food you bought just didn't last and you didn't have money to get more. Never true 04/28/2019 Sex Assigned at Date Recorded Female 03/25/2019 10:38 AM EDT Job Start Date Occupation Industry [...] as of this encounter Progress Notes * MARIA GUADALUPE Jeffers - 05/25/2023 8:25 AM EDT Patient Phone Numbers Left message on patients answering machine to schedule [facility] appointment for coag management. [facility] message sent --no Clinic will follow up again in 1 week(s). 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[employer] [facility] 05/25/2023,8:25 AM documented in this encounter Plan of Treatment Upcoming Encounters Date Type Specialty Care Team Description 06/01/2023 Anticoagulation Pharmacy [facility] [address] [place] [address] 06/07/2023 Imaging Radiology 06/13/2023 Pharmacy [facility] [address] [place] [address] 07/05/2023 Office Visit Family Medicine Natalia Heller PALoiC [address] [place] [address] 09/18/2023 Hospital Encounter Endoscopy Anselmo Sung MD [address] [place] [address] 09/18/2023 Surgery Endoscopy Anselmo Sung MD [address] [place] [address] COLONOSCOPY FLEXIBLE PROXIMAL DIAGNOSTIC 10/18/2023 Office Visit Cardiology Nesha Denney CRNP [address] [place] [address] Scheduled Procedures Name Priority Associated Diagnoses Date/Ti [...] D LEVEL ONCE IN A LIFETIME-USE SMARTSET# [id number] Completed 06/18/2020, 07/25/2019, 05/20/2015, Additional history exists LUNG CANCER SCREENING - USE SMARTSET [id number] Completed 12/22/2022, 12/09/2021, 12/24/2020, Additional history exists [...] this encounter Medical Devices Implanted Type Area Analytical Chemist Device Identifier Shelf Expiration Date Model / Serial / Lot Graft Cervical 6x8 [id number] - [id number] Implanted:Qt y: 2 on 08/21/2008 at OR [facility] [place] Tissue - Human Spine Cervical [employer] [id number] / / 14 Mm Variable Rescue Implanted:Qt y: 2 on 08/21/2008 at OR [facility] [place] N/A: Spine Cervical [id number] / / Description:14 mm variable r escue Screw 3.5x14 Mntr Fa [id number] - [id number] Implanted:Qt y: 10 on 07/13/2010 at OR [facility] [place] N/A: Spine Cervical JN[place] : [employer] [id number] / / documented as of this encounter [...] the patient have Health Care Power of Floor Nurse? No Full Code 07/13/2010 12:29 PM 07/17/2010 4:03 PM Thi s order reflects the patients wishes and were consensually agreed upon. Question Answer Comments Discussion of Advance Directives occurred with: Not Discussed Does the patient have a Living Will? No Does the patient have Health Care Power of Floor Nurse? No Full Code 01/07/2010 6:23 AM 01/07/2010 2:05 PM This or emi reflects the patients wishes and were consensually agreed upon. Question Answer Comments Discussion of Advance Directives occurred with: Patient/Family Does the patient have a Living Will? No Does the patient have Health Care Power of Floor Nurse? No Full Code 10/15/2009 7:12 AM 10/15/2009 9:26 PM This order reflects the patients wishes and were consensually agreed upon. Care Teams Assistant Superintendent Relationship Specialty Start Date End Date Alfa Jaramillo MD [address] [place] [address] PCP - General 05/06/00 documented as of this encounter
[2023-11-15] MEDS ORDERED: LANTUS PER UNIT CHARGE SC SCH (21:00)
[2023-11-15] MEDS: traZODone HCL 50 MG TAB PO SCH (21:46)
[2023-11-15] MEDS: SERTRALINE HCL 50 MG TABLET PO SCH (21:46)
[2023-11-16] MEDS ORDERED: INSULIN ASPART PER UNIT CHARGE SC SCH
[2023-11-16 07:35] LABS: INR 3.5 (0.9-1.1); Prothrombin Time 35.4 Seconds (9.0-12.0)
[2023-11-16 07:41] LABS: BUN Creatinine Ratio 26.3 (10-20); Calcium 9.4 mg/dl (8.6-10.3); Creatinine Clr Calc Pharmacy 69.8 ml/min; Est GFR (African American) 89.6 ml/min; Est GFR (Non-African American) 77.3 ml/min; Phosphorus 2.3 mg/dl (2.5-4.9); Potassium 3.1 mmol/L (3.5-5.1)
[2023-11-16] MEDS ORDERED: POTASSIUM PHOS 3 MMOL/1 ML INFUSION IV STA (07:44)
[2023-11-16 08:04] LABS: Hematocrit (blood only) 35.8 % (37.0-47.0); Hemoglobin 11.8 g/dl (12.0-16.0); Mean Corpuscular Hemoglobin 29.4 pg (25.0-34.0); Mean Corpuscular Volume 89.3 fL (80.0-100.0); Mean Platelet Volume 11.6 fL (9.4-12.4); Platelet Count 131 K/uL (130-400); RDW Coefficient of Variation 15.7 % (11.5-14.5); Red Blood Count 4.01 M/uL (4.20-5.40); White Blood Count 6.38 K/ul (4.8-10.8)
[2023-11-16] MEDS: LANTUS PER UNIT CHARGE SC SCH (09:10)
[2023-11-16] MEDS: POTASSIUM CHLORIDE CRTAB 20 MEQ TABCR PO STA (09:25)
[2023-11-16] MEDS: POTASSIUM PHOSPHATE 30 MMOL in SODIUM CHLORIDE 0.9% 500 ML IV ONE (09:45)
[2023-11-16] MEDS ORDERED: REMDESIVIR 100 MG in SODIUM CHLORIDE 0.9% 230 ML IV SCH (12:00)
--- NOTE | 2023-11-16 12:42 | Cardiology Progress Note ---
Date of Service November 16, 2023 Assessment & Plan (1) Respiratory distress: (2) Hypertensive urgency: (3) ASCVD (arteriosclerotic cardiovascular disease): (4) Atrial fibrillation: (5) Flash pulmonary edema: Plan 73-year-old female presenting from home via EMS with respiratory distress, pulmonary edema following direct-current cardio[place] [facility]. Patient with active Covid-19 infection. Pulmonary edema resolved following administration of IV furosemide. Patient maintaining sinus rhythm post cardioversion, prior history of chronic atrial fibrillation, severely enlarged left atrium. Recommendations: 1. Correct hypokalemia with oral potassium chloride supplementation 2. Low-dose (20 mg) oral furosemide 2 to 3 days/week on discharge, along with oral potassium supplementation 3. Expecting reversion back to atrial fibrillation at some point, likely requiring resumption of digoxin and/or titration of metoprolol 4. Maintain anticoagulation, INR goal of 2.0-3.0 5. Continue medical management of the patient's coronary artery disease 6. Continue beta-adis, aspirin, statin, and long-acting nitrates 7. Please contact with any questions or concerns. 8. Outpatient cardiology follow-up as scheduled on December 11, 2023, or as needed. I spent a total of 35 minutes on the date of service in preparation, delivery, and documentation of the care provided to this patient excluding any time spent in the performance of separately billed services. This visit was a split-shared visit with the substantive portion of the medical decision making performed by the supervising curb hop/billing provider. Admission and Anticipated Discharge Date Admission Date: November 15, 2023 Supervising Physician Co-Signing Physician Notes I have reviewed the advance practitioner's documentation, and I agree with, and take responsibility for the plan of care. 73-year-old female present to the emergency department with acute shortness of breath. Chest x-ray revealing flash pulmonary edema. Recent history significant for cardiac catheterization demonstrating chronic RCA occlusion. Pa tient managed medically. Post catheterization elevated heart rates noted with hemodynamic instability. She underwent a an urgent transesophageal echo guided cardioversion. Remains in sinus rhythm since admission, however, review of the [facility] record demonstrates persistent likely chronic A-fib dating back to 2019. Feeling better today. Requesting discharge if possible. PE: VSS. Gen: NAD, AAO x3. Heart: Regular rhythm. Normal S1-S2. 2/6 low pitched mid peaking systolic ejection murmur heard best at the right second costal space. Lungs: Diminished breath sounds at the bases, no rales, rhonchi, wheeze. Extremities: Trace pedal edema. A/P: 73-year-old female admitted with post cardioversion flash pulmonary edema, acute heart failure with preserved ejection fraction. Significant clinical improvement with IV diuretic therapy. Resume outpatient diuretic therapy 3 days/week as noted above. No further inpatient cardiac testing or intervention recommended at this time. Continue beta-adis, warfarin, aspirin, statin, long-acting nitrates as ordered. Cardiology will sign off. Please call with additional concerns/questions. I spent a total of 20 minutes on the date of service in preparation, delivery, and documentation of the care provided to this patient, excluding any time spent in the performance of separately billed services. Subjective Patient seen and examined. Chart, medications, and telemetry reviewed. at bedside. "I'm good. I'm ready to get out of here." No chest pain. No difficulty breathing. No palpitations. No orthopnea or PND. No lower extremity peripheral edema. No dizziness or syncope. No fevers or chills. Telemetry: Sinus rhythm in the 60s to 80s, with occasional atrial ectopy. No atrial fibrillation. Resting echocardiography on November 15, 2023 revealed hyperdynamic LV systolic function, EF greater than 70%, with moderate concentric LVH, severely dilated left atrium, mild aortic valve stenosis, mild mitral and tricuspid regurgitation, borderline elevated pulmonary artery systolic pressures, grade 3 diastolic dysfunction. Review of Systems Review of Systems: Complete review of systems is otherwise as stated above, negative, or noncontributory Physical Exam Physical Exam: General: A&Ox3. NAD. HENT: Normocephalic. Atraumatic. Eyes: PER. Conjunctiva pink, sclera clear. Neck: No JVD. Heart: Regular at 70 bpm. Grade II/ systolic ejection murmur. No diastolic murmur. Lungs: Clear to auscultation. Abdomen: +BS. Soft. Nontender. No masses or organomegaly. Extremities: No edema. No clubbing. No cyanosis. Limited neurological examination is without focal deficits. Pulses: radial=2/4, posterior tibial=1/4. Results & Data Vital Signs (Past 12 Hours) Vital Signs Temp Pulse Pulse Resp BP Pulse Ox O2 Del Method 11/16/23 10:22 36.6 C 65 18 158/78 H 96 Nasal Cannula 11/16/23 08:15 36.6 C 68 20 146/76 H 97 Nasal Cannula 11/16/23 07:00 72 11/16/23 02:59 36.6 C 72 18 130/71 96 Nasal Cannula O2 Flow Rate 11/16/23 10:22 1 11/16/23 08:15 3.5 11/16/23 07:00 11/16/23 02:59 1 Laboratory Results Cardiac Enzymes 11/16/23 Range/Units 06:01 AST 25 (13-39) U/L Coagulation 11/16/23 Range/Units 06:01 PT 35.4 H (9.0-12.0) Seconds CBC 11/16/23 Range/Units 06:01 WBC 6.38 (4.8-10.8) K/ul RBC 4.01 L (4.20-5.40) M/uL Hgb 11.8 L (12.0-16.0) g/dl Hct 35.8 L (37.0-47.0) % Plt Count 131 (130-400) K/uL Comprehensive Metabolic Panel 11/15/23 11/16/23 Range/Units 12:52 06:01 Sodium 131 L 140 D (136-145) mmol/L Potassium 4.2 D 3.1 L D (3.5-5.1) mmol/L Chloride 95 L 103 (98-107) mmol/L Carbon Dioxide 30 31 (21-32) mmol/L BUN 22 20 (6-23) mg/dl Creatinine 1.03 0.76 (0.6-1.2) mg/dl Glucose 522 H* 191 H (70-99(Fasting)) mg/dl Calcium 9.1 9.4 (8.6-10.3) mg/dl AST 25 (13-39) U/L ALT 15 (7-52) U/L Intake and Output 11/15/23 11/16/23 11/16/23 22:59 06:59 14:59 Intake Total 144.439 / 1423.288 378.849 / 1423.288 52.913 / 52.913 Output Total 1200 / 4975 1850 / 4975 Balance -1055.561 / -3551.712 -1471.151 / -3551.712 52.913 / 52.913 Intake: IV 24.439 / 563.288 78.849 / 563.288 52.913 / 52.913 Insulin Regular 250 units In 24.439 / 103.288 78.849 / 103.288 52.913 / 52.913 Sodium Chloride 0.9% 247.5 ml @ 12.8 UNITS/HR 12.8 mls/hr IV . [id number] [facility] Rx#:[id number] Oral 120 / 860 300 / 860 Output: Urine Amount (Catheter) 1200 / 4975 1850 / 4975 Cisneros/Indwelling 1200 / 4975 1850 / 4975 Other: Weight 84.7 kg Weight Measurement Method Built in [facility] (4) Atrial fibrillation Atrial fibrillation type: unspecified Qualified Code(s): I48.91 - Unspecified atrial fibrillation
--- NOTE | 2023-11-16 15:20 | Pharmacy Report ---
Pharmacy Glycemic Short Note 2 - Date of Service November 16, 2023 - Glycemic Short BSG Results (Last 24 hours): 11/15/23 11/15/23 11/15/23 14:57 14:58 16:17 Glucose POC Glucose 423 H* 434 H* 418 H* 11/15/23 11/15/23 11/15/23 18:44 18:45 19:51 Glucose POC Glucose 450 H* 458 H* 362 H* 11/15/23 11/15/23 11/15/23 20:55 21:43 22:50 Glucose POC Glucose 358 H* 330 H* 296 H 11/15/23 11/16/23 11/16/23 23:53 00:42 01:51 Glucose POC Glucose 276 H 258 H 243 H 11/16/23 11/16/23 11/16/23 02:47 03:51 04:50 Glucose POC Glucose 249 H 228 H 229 H 11/16/23 11/16/23 11/16/23 05:47 06:01 06:46 Glucose 191 H POC Glucose 192 H 147 H 11/16/23 11/16/23 11/16/23 07:45 08:53 09:43 Glucose POC Glucose 134 H 156 H 213 H 11/16/23 11/16/23 11/16/23 10:51 11:41 12:54 Glucose POC Glucose 162 H 110 H 140 H 11/16/23 13:52 Glucose POC Glucose 146 H OUTPATIENT ANTIDIABETIC REGIMEN: * metformin 1000mg QAM * Ozempic 2mg QSUN * Toujeo 60 units BID PRN pump failure * Novolog Medtronic [id number] insulin pump (per 10/24/23 [facility] visit records) * Average 200 units of basal daily * Total daily dose ~290-350 units daily * Sensitivity factor: 10 * Carbohydrate ratio: 5 (using preset boluses) * Preset boluses: 25 units with breakfast, 45 units with lunch, and 40 units with dinner * HbA1c 10.4% (11/15/23) ASSESSMENT: 11/15 * Yesterday evening BSGs continued to rise, decision was made to start insulin drip, BSGs trended down overnight * Graciela received 236 units of subcutaneous insulin yesterday (120 units basal) as well as 38 units ([id number]) from the insulin drip * Fasting BSG this AM within goal range, had received about 100 units of insulin IV overnight to achieve this level of control, increased basal insulin by 40 units and significantly tightened Novolog * Continue overlap with insulin drip at this time, steroid effects should be wearing off, will give an additional Lantus dose now, and stop drip at 2099 * Novolog parameters tightened from previous parameters before starting drip 11/14 * Graciela is a 73 YOF admitted with COVID and a history of type 2 diabetes mellitus managed on a Novolog pump outpatient. Pharmacy has been consulted to assist with glycemic management while inpatient. * Reported failure of insulin pump before admission and waiting on a new one per med rec notes * BSGs elevated on admission at 261 (no treatment administered) and received Dexamethasone 6mg IV for COVID last night, BSGs trended into the 400's overnight. Dexamethasone placed on hold by hospitalist. IV regular insulin bolus (5 units) given early this morning, stat dose of Lantus ordered and tightened Novolog. Dosed conservatively in the AM as patient only required ~100 units of insulin on previous admission in 2019. * Lunchtime BSG today 454/437, 10 units IV regular insulin ordered, additional Lantus, and tightened Novolog significantly. Elevations likely due to combination of dexamethasone given yesterday and high outpatient needs. PLAN FOR INPATIENT GLYCEMIC CONTROL: * Hold outpatient diabetes medications * Continue insulin drip until 2099, discontinue if held per calculator * Basal insulin * Lantus 80 units SQ BID (give 11/15 2099 dose now to aid drip transition) * Bolus insulin * NovoLog per scale ACHS or Q6hrs while NPO * Goal Range: Low 110 mg/dL - High 140 mg/dL * Correction Factor: 8 mg/dL/unit * Nutritional / Prandial insulin per carb ratio of 1 unit per 1.5 grams CHO consumed
[2023-11-16] MEDS: LANTUS PER UNIT CHARGE SC ONE (15:25)
--- NOTE | 2023-11-16 16:49 | Hospitalist Progress Note ---
Date of Service November 16, 2023 Assessment & Plan (1) Respiratory distress: Plan: Ms. Itz Owens is a 73-year-old female with past medical history significant for diabetes, peripheral vascular disease, hyperlipidemia, moderate COPD, chronic atrial fibrillation, history of CAD, B12 deficiency, GERD, osteoporosis, history of DVT, history of depression, history of breast cancer admitted for management of flash pulmonary edema. Patient with history of recent cardiac cath showed complete total occlusion in proximal RCA and 30-40 per stenosis of proximal left circumflex without stent placement. Course complicated by a fib RVR and hypotension. Patient s/p c ardioversion and discharged home; however, shortly thereafter on 11/13, patient felt very short of breath and EMS was called. Patient started on nitro drip after being found to be hypertensive and with pulmonary edema. Patient started on IV lasix and bipap with notable improvement. Patient with post-cardioversion flash pulmonary edema and acute heart failure with preserved ejection fraction. #Acute hypoxic respiratory failure iso flash pulmonary edema #Atrial Fibrillation s/p cardioversion #Acute on chronic heart failure with preserved ejection fraction #Occlusive CAD s/p recent PCI, chronic occlusive disease ECHO with >70% EF, LVH, PASP 39mmhg, GDIII DD Cardiology following Continue to follow need for IV lasix Continue coumadin 7.5 mg with goal 2-3 -Hold this evenings dose Continue imdur, metoprolol xl BID Continue statin and asa Replace electrolytes No further diuresis #Positive for COVID asymptomatic, hypoxia 2/2 edema dexamethasone discontinued given degree of hyperglycemia requiring insulin drip discontinue remdesivir given asymptomatic (no fevers, chills, myalgias, cough etc) COVID isolation and precautions #Hyperglycemia #Diabetes Patient on aggressive insulin regimen; notably hyperglycemic especially s/p decadron, resistant to subq thus far Start insulin drip glycemic consult #Hypertension On Imdur, metoprolol succinate Was on nitro drip for elevated blood pressure which is DC'd as blood pressure is okay now Will monitor #Hyperlipidemia On statin #Depression On trazodone and Zoloft DVT prophylaxis On Coumadin Monitor PT/INR Disposition Telemetry Likely discharge in early am Admission and Anticipated Discharge Date Admission Date: November 15, 2023 Subjective NAEO Reports feeling much improved overall Denies any SOB or other acute concerns Physical Exam Constitutional: WD/WN, vitals as above Respiratory: normal respiratory effort, lungs clear to auscultation Cardiovascular: RRR, no murmur, no edema Results & Data Results & Data Vital Signs (Past 12 Hours) Vital Signs Temp Pulse Pulse Resp BP Pulse Ox O2 Del Method 11/16/23 15:48 36.7 C 62 20 103/59 L 99 Nasal Cannula 11/16/23 10:22 36.6 C 65 18 158/78 H 96 Nasal Cannula 11/16/23 08:15 36.6 C 68 20 146/76 H 97 Nasal Cannula 11/16/23 08:00 Room Air 11/16/23 07:00 72 O2 Flow Rate 11/16/23 15:48 1 11/16/23 10:22 1 11/16/23 08:15 3.5 11/16/23 08:00 11/16/23 07:00 Laboratory Results Short CBC 11/16/23 Range/Units 06:01 WBC 6.38 (4.8-10.8) K/ul Hgb 11.8 L (12.0-16.0) g/dl Hct 35.8 L (37.0-47.0) % Plt Count 131 (130-400) K/uL BMP 11/16/23 06:01 Sodium 140 D Potassium 3.1 L D Chloride 103 Carbon Dioxide 31 BUN 20 Creatinine 0.76 Glucose 191 H Calcium 9.4 Liver Function 11/16/23 Range/Units 06:01 AST 25 (13-39) U/L ALT 15 (7-52) U/L Medications Administered Home Medications Medication Instructions Recorded Confirmed Last Taken albuterol sulfate 90 mcg/actuation 2 puff inhalation QID PRN 01/12/20 11/15/23 Unknown aerosol inhaler (Ventolin HFA) Shortness Of Breath Or Wheezing fluticasone propionate 50 2 spray intranasal QAM 01/12/20 11/15/23 09/21/22 mcg/actuation nasal spray,suspension (Flonase Allergy Relief) metformin 1,000 mg tablet 1,000 mg PO BIDM 01/12/20 11/15/23 09/21/22 nitroglycerin 0.3 mg sublingual 0.3 mg sublingual .PRN/UD PRN 01/12/20 11/15/23 Unknown tablet (Nitrostat) Chest Pain pregabalin 150 mg capsule 150 mg PO BID 0611/15/23 09/21/22 08:00 sertraline 50 mg tablet 75 mg PO HS 01/12/20 11/15/23 09/21/22 trazodone 50 mg tablet 50 mg PO HS 01/12/20 11/15/23 09/20/22 warfarin 5 mg tablet 7.5 mg PO QPM 01/12/20 11/15/23 09/20/22 cholecalciferol (vitamin D3) 25 1,000 unit PO QAM #30 caps 01/19/20 11/15/23 09/21/22 mcg (1,000 unit) capsule multivitamin (Daily-Moiz tablet) 1 tab PO QAM #30 tabs 01/19/20 11/15/23 09/21/22 metoprolol succinate 50 mg 50 mg PO BID #60 tabs 01/23/20 11/15/23 09/21/22 08:00 tablet,extended release 24 hr cyanocobalamin (vitamin B-12) 1,000 mcg sublingual DAILY 09/21/22 11/15/23 09/21/22 1,000 mcg sublingual tablet aspirin 81 mg tablet,delayed 81 mg PO QAM 11/15/23 11/15/23 Unknown release insulin aspart U-100 100 unit/mL 0 sliding scale dose continuous 11/15/23 11/15/23 Unknown subcutaneous solution (Novolog subcutaneous infusion .WAITING ON U-100 Insulin aspart) NEW PUMP insulin glargine U-300 conc 300 60 unit subcut AMPM 11/15/23 11/15/23 Unknown unit/mL (1.5 mL) subcutaneous pen (Saima Medrano U-300 Insulin) isosorbide mononitrate 60 mg 60 mg PO QAM 11/15/23 11/15/23 Unknown tablet,extended release 24 hr rosuvastatin 20 mg tablet 20 mg PO QAM 11/15/23 11/15/23 Unknown Active Medications Generic Name Dose Route Start Last Admin Trade Name Freq PRN Reason Stop Dose Admin Aspirin 81 mg 11/15/23 09:00 11/16/23 09:29 Aspirin 81 Mg Ectab PO 12/15/23 08:59 81 mg QAM RAQUEL Administration Cyanocobalamin 1,000 mcg 11/15/23 09:00 11/16/23 09:28 Cyanocobalamin (B-12) 500 Mcg Tablet PO 12/15/23 08:59 1,000 mcg DAILY RAQUEL Administration Fluticasone Propionate 2 sprays 11/15/23 09:00 11/16/23 09:45 Fluticasone Propionate Na Spr 16 Gm Btl NA 12/15/23 08:59 2 sprays QAM RAQUEL Administration Insulin Aspart 0 units 11/15/23 16:30 11/16/23 12:33 Insulin Aspart Per Unit Charge SC 11/16/23 20:59 27 units ACHS RAQUEL Administration Insulin Glargine 80 units 11/16/23 09:00 11/16/23 09:10 Lantus Per Unit Charge SC 12/16/23 08:59 80 units BID RAQUEL Administration Isosorbide Mononitrate 60 mg 11/15/23 09:00 11/16/23 09:30 Isosorbide [place] Extended Rel 60 Mg Tabcr PO 12/15/23 08:59 60 mg QAM RAQUEL Administration Metoprolol Succinate 50 mg 11/15/23 09:00 11/16/23 09:28 Metoprolol Succ 50mg Ext Rel Tab PO 12/15/23 08:59 50 mg BID RAQUEL Administration Multivitamins 1 tab 11/15/23 09:00 11/16/23 09:29 Multivitamin Tab PO 12/15/23 08:59 1 tab QAM RAQUEL Administration Pregabalin 150 mg 11/15/23 09:00 11/16/23 09:44 Pregabalin 150 Mg Cap PO 12/15/23 08:59 150 mg BID RAQUEL Administration Rosuvastatin Calcium 20 mg 11/15/23 09:00 11/16/23 09:29 Rosuvastatin Calcium 20 Mg Tab PO 12/15/23 08:59 20 mg QAM RAQUEL Administration Sertraline HCl 75 mg 11/15/23 21:00 11/15/23 21:46 Sertraline Hcl 50 Mg Tablet PO 12/15/23 20:59 75 mg HS RAQUEL Administration Trazodone HCl 50 mg 11/15/23 21:00 11/15/23 21:46 Trazodone Hcl 50 Mg Tab PO 12/15/23 20:59 50 mg HS RAQUEL Administration Vitamin D 25 mcg 11/15/23 09:00 11/16/23 09:28 Cholecalciferol 25 Mcg (1000 Units) Tab PO 12/15/23 08:59 25 mcg QAM RAQUEL Administration Warfarin Sodium 7.5 mg 11/15/23 16:00 11/15/23 17:20 Warfarin Sod 7.5 Mg Tab PO 12/15/23 15:59 7.5 mg DAILY@1600 RAQUEL Administration
[2023-11-16] MEDS ORDERED: Nursing to Pharmacy Communication SCH (17:00)
[2023-11-16] MEDS ORDERED: DC IV INSULIN INFUSION 1 EA DEVI ONE ×2 (19:00→21:00)
[2023-11-16] MEDS: INSULIN ASPART PER UNIT CHARGE SC SCH (21:05)
--- NOTE | 2023-11-16 23:53 | Electrocardiogram Report ---
Test Reason : Blood Pressure : / mmHG Vent. Rate : 087 BPM Atrial Rate : 087 BPM P-R Int : 148 ms QRS Dur : 100 ms QT Int : 408 ms P-R-T Axes : 074 024 057 degrees QTc Int : 490 ms Normal sinus rhythm with sinus arrhythmia Incomplete right bundle branch block Nonspecific T wave abnormality Prolonged QT Abnormal ECG When compared with ECG of 20-JAN-2020 07:23, Sinus rhythm has replaced Atrial fibrillation Incomplete right bundle branch block is now Present Confirmed by Omar Meyers ([id number]) on 11/16/2023 11:53:09 PM Referred By: REFERRED SELF Confirmed By:Omar Meyers
[2023-11-17] MEDS: INSULIN ASPART PER UNIT CHARGE SC SCH (00:03)
--- NOTE | 2023-11-17 07:08 | Discharge Summary ---
Discharge Summary Date of Service November 17, 2023 Notes For Next Care Provider Follow up BMP in 1 week Medication Changes From Visit Lasix 20mg, 1 tablet 3x week Potassium Chloride 20meq, 1 tablet 3xweek Admission HPI Per Admitting Provider 73-year-old female with past medical history significant for diabetes, peripheral vascular disease, hyperlipidemia, moderate COPD, chronic atrial fibrillation, history of CAD, B12 deficiency, GERD, osteoporosis, history of DVT, history of depression, history of breast cancer, presents with respiratory distress and elevated blood pressure. Patient was recently in [place] for cardiac cath for colicky chest pain for the past year. Cardiac cath showed complete total occlusion in proximal RCA and 30-40 per stenosis of proximal left circumflex and thought her blockages could not be stented. After procedure patient went to rapid A-fib and blood pressure was 84/55 and continued to be hypotensive and was dizzy and lightheaded. Patient had a JORGE and cardioversion with successful results and was discharged home. Today at 9:30 PM patient felt very short of breath and EMS was called her blood pressure was 175 /110 she was started on nitro drip. Chest x-ray showed pulmonary edema and she was given dose of Lasix and was placed on BiPAP. Patient COVID test came back positive. Patient denies any fever. No chest pains. No runny nose. No sore throat. No cough. No decreased appetite. No body aches. Had headache but that resolved now , vision is okay. Constipated. Denies any blood in the stools.Normal micturition. She ambulates with a cane at home and for long distances she uses wheelchair. Currently talking in full sentences and seems comfortable. Past medical history. As mentioned above Past surgical history. Amputation of right toe. Right total knee arthroplasty. Biopsy of the axilla lymph node left side. Carpal tunnel surgery. Colonoscopy. Colonoscopy with biopsy. D&C. Left knee arthroscopy. Ligation of varicose veins. Left partial mastectomy. Cervical spine fusion surgery. Radiation treatment. Social history. . Quit smoking 2014. Smoked 2 pack a day for 36 years. No alcohol currently. No drug use Family history. Mother had breast cancer and diabetes. Maternal grandmother had breast cancer. Sister had cancer. Brother had diabetes. . Father had diabetes and PR at age of 34 and at age of 52 Admission Exam Per Admitting Provider General- Not in distress Head- atraumatic Eyes- PERRL. ENT- oropharynx clear Neck- supple, no JVD. Lungs- clear to auscultation no wheezing or crackles Heart- regular rhythm; no murmur, no gallop. Abdomen- normal bowel sounds, soft, nontender, no distension. Extremities- no pretibial edema, no erythema seen Neuro- alert, oriented PERRL, no facial palsy; no dysarthria; moves extremities. Skin- warm & dry Principal Dx & Hospital Course #1 = Principal Diagnosis (1) Respiratory distress: Ms. Itz Owens is a 73-year-old female with past medical history significant for diabetes, peripheral vascular disease, hyperlipidemia, moderate COPD, chronic atrial fibrillation, history of CAD, B12 deficiency, GERD, osteoporosis, history of DVT, history of depression, history of breast cancer admitted for management of flash pulmonary edema. Patient with history of recent cardiac cath showed complete total occlusion in proximal RCA and 30-40 per stenosis of proximal left circumflex without stent placement. Course complicated by a fib RVR and hypotension. Patient s/p cardioversion and discharged home; however, shortly thereafter on 11/13, patient felt very short of breath and EMS was called. Patient started on nitro drip after being found to be hypertensive and with pulmonary edema. Patient started on IV lasix and bipap with notable improvement. Patient with post-cardioversion flash pulmonary edema and acute heart failure with preserved ejection fraction. #Acute hypoxic respiratory failure iso flash pulmonary edema #Atrial Fibrillation s/p cardioversion #Acute on chronic heart failure with preserved ejection fraction #Occlusive CAD s/p recent PCI, chronic occlusive disease ECHO with >70% EF, LVH, PASP 39mmhg, GDIII DD Cardiology following Continue to follow need for IV lasix Continue coumadin 7.5 mg with goal 2-3 -Held dose on 11/15 -Resume home dosing, follow up [facility] clinic Continue imdur, metoprolol xl BID Continue statin and asa Replace electrolytes Discharge with lasix 20mg 3xwk and potassium supplementation #Positive for COVID, incidental asymptomatic, hypoxia 2/2 edema dexamethasone discontinued given degree of hyperglycemia requiring insulin drip discontinue remdesivir given asymptomatic (no fevers, chills, myalgias, cough etc) Conservative home management #Hyperglycemia #Diabetes Patient on aggressive insulin regimen; notably hyperglycemic especially s/p decadron, resistant to subq thus far Briefly on insulin drip, exacerbated by decadron Resume home regimen, further SSI recommendations in discharge summary #Hypertension On Imdur, metoprolol succinate Was on nitro drip for elevated blood pressure which is DC'd as blood pressure is okay now Will monitor Resume home nitrates and BB #Hyperlipidemia On statin #Depression On trazodone and Zoloft Discharge Exam Constitutional WD/WN, vitals as above Respiratory normal respiratory effort, lungs clear to auscultation Cardiovascular RRR, no murmur, no edema Gastrointestinal (Abdomen) normal bowel sounds, soft, nontender, no hepatosplenomegaly Updated Medication List Medication Instructions Recorded Confirmed Type albuterol sulfate 90 mcg/actuation 2 puff inhalation QID PRN 01/12/20 11/15/23 History aerosol inhaler (Ventolin HFA) Shortness Of Breath Or Wheezing fluticasone propionate 50 2 spray intranasal QAM 01/12/20 11/15/23 History mcg/actuation nasal spray,suspension (Flonase Allergy Relief) metformin 1,000 mg tablet 1,000 mg PO BIDM 01/12/20 11/15/23 History nitroglycerin 0.3 mg sublingual 0.3 mg sublingual .PRN/UD PRN 01/12/20 11/15/23 History tablet (Nitrostat) Chest Pain pregabalin 150 mg capsule 150 mg PO BID 01/12/20 11/15/23 History sertraline 50 mg tablet 75 mg PO HS 01/12/20 11/15/23 History trazodone 50 mg tablet 50 mg PO HS 01/12/20 11/15/23 History warfarin 5 mg tablet 7.5 mg PO QPM 01/12/20 11/15/23 History cholecalciferol (vitamin D3) 25 1,000 unit PO QAM #30 caps 01/19/20 11/15/23 Rx mcg (1,000 unit) capsule multivitamin (Daily-Moiz tablet) 1 tab PO QAM #30 tabs 01/19/20 11/15/23 Rx metoprolol succinate 50 mg 50 mg PO BID #60 tabs 01/23/20 11/15/23 Rx tablet,extended release 24 hr cyanocobalamin (vitamin B-12) 1,000 mcg sublingual DAILY 09/21/22 11/15/23 History 1,000 mcg sublingual tablet aspirin 81 mg tablet,delayed 81 mg PO QAM 11/15/23 11/15/23 History release insulin aspart U-100 100 unit/mL 0 sliding scale dose continuous 11/15/23 11/15/23 History subcutaneous solution (Novolog subcutaneous infusion .WAITING ON U-100 Insulin aspart) NEW PUMP insulin glargine U-300 conc 300 60 unit subcut AMPM 11/15/23 11/15/23 History unit/mL (1.5 mL) subcutaneous pen ([employer] U-300 Insulin) isosorbide mononitrate 60 mg 60 mg PO QAM 11/15/23 11/15/23 History tablet,extended release 24 hr rosuvastatin 20 mg tablet 20 mg PO QAM 11/15/23 11/15/23 History furosemide 20 mg tablet 20 mg PO 3XWK #30 tabs 11/17/23 Rx potassium chloride 20 mEq 20 meq PO 3XWK #30 tabs 11/17/23 Rx tablet,extended release Hospital Stay Data Consultations 11/15/23 00:28 ED Decision to Admit Stat 11/15/23 08:00 Consult Cardiology Routine Consult Nephrology Routine Pending Results Patient Have Any Pending Studies at Discharge: No Discharge Instructions Given to Patient (Per Discharging Provider) You were admitted for shortness of breath and found to have pulmonary edema, or fluid on the lungs. You improved with IV water pill. You electrolytes were low and replaced with sup plementation by mouth and IV. You were also found to be COVID positive, but this is felt to be incidental and not related to the fluid on your lungs. Please start the following: - 20mg oral furosemide, 1 tablet on Sunday, Sunday, Sunday - 20meq oral potassium chloride, 1 tablet on Sunday, Sunday, Sunday Please continue all other medications as prescribed. Please follow up with your anticoagulation clinic for dosing of warfarin. Please follow up with PCP and blood work (BMP) in one week to check your electrolytes. Please keep Outpatient cardiology follow-up as scheduled on December 11, 2023, or as needed. Total Time Total Time Spent Total Time Spent (In Minutes): 45
[2023-11-17] MEDS: POTASSIUM CHLORIDE CRTAB 20 MEQ TABCR PO STA (07:33)
[2023-11-17 08:54] LABS: BUN Creatinine Ratio 26.7 (10-20); Creatinine Clr Calc Pharmacy 51.6 ml/min; Est GFR (African American) 60.6 ml/min; Est GFR (Non-African American) 52.3 ml/min; Phosphorus 4.1 mg/dl (2.5-4.9); Potassium 4.1 mmol/L (3.5-5.1)
[2023-11-17 08:56] LABS: INR 2.8 (0.9-1.1); Prothrombin Time 28.3 Seconds (9.0-12.0)
== END 2023-11-17 09:38 | disposition home or self-care (01) | DRG 291 ==
LOC: ED 23:14 → 2S 11-15 02:57

== ENCOUNTER 2024-09-05 09:28 | Inpatient (IN) ==
[2024-09-05 10:11] LABS: Basophils # (auto) 0.06 K/uL (0.00-0.20); Basophils % (auto) 0.4 %; Eosinophils # (auto) 0.01 K/uL (0.00-0.50); Eosinophils % (auto) 0.1 %; Hematocrit (blood only) 40.8 % (37.0-47.0); Immature Granulocytes # (auto) 0.09 K/uL (0.01-0.20); Immature Granulocytes % (auto) 0.6 %; Lymphocytes # (auto) 1.57 K/uL (1.20-3.40); Lymphocytes % (auto) 10.8 %; Mean Corpuscular Hgb Conc 31.9 g/dL (32.0-36.0); Mean Corpuscular Volume 90.9 fL (80.0-100.0); Mean Platelet Volume 11.7 fL (9.4-12.4); Monocytes # (auto) 0.84 K/uL (0.11-0.59); Monocytes % (auto) 5.8 %; Neutrophils # (auto) 11.96 K/uL (1.40-6.50); Neutrophils % (auto) 82.3 %; Platelet Count 139 K/uL (130-400); RDW Coefficient of Variation 15.2 % (11.5-14.5); Red Blood Count 4.49 M/uL (4.20-5.40); White Blood Count 14.53 K/ul (4.8-10.8)
--- NOTE | 2024-09-05 10:28 | XRay Report ---
XR chest 1V portable CLINICAL HISTORY: Dyspnea COMPARISON STUDY: 11/15/2023 FINDINGS: There are mitral valvular calcifications. There is stable cardiomegaly without pulmonary va scular congestion. No effusion, consolidation, or pneumothorax. IMPRESSION: No acute findings. ACT 112: Negative or not required by law. Electronically signed by: Marcial Aaron M.D. 09/05/2024 10:26 AM
[2024-09-05 10:29] LABS: Albumin Level 3.6 gm/dl (3.4-5.0); BUN Creatinine Ratio 17.3 (10-20); Bilirubin,Total 1.2 mg/dl (0.2-1.0); Calcium 8.9 mg/dl (8.6-10.3); Creatinine Clr Calc Pharmacy 53.6 ml/min; Globulin 3.7 gm/dl (2.5-4.0); Potassium 4.4 mmol/L (3.5-5.1); Total Protein 7.3 gm/dl (6.0-8.3)
[2024-09-05 10:47] LABS: Troponin I High Sensitivity 31.8 pg/ml (0-14)
[2024-09-05 10:54] LABS: Adenovirus PCR Not Detected (NotDetected); Bordetella parapertussis PCR Not Detected (NotDetected); Bordetella pertussis PCR Not Detected (NotDetected); Chlamydia pneumoniae PCR Not Detected (NotDetected); Coronavirus 229E PCR Not Detected (NotDetected); Coronavirus CoV-2 (COVID19)PCR Not Detected (NotDetected); Coronavirus HKU1 PCR Not Detected (NotDetected); Coronavirus NL63 PCR Not Detected (NotDetected); Coronavirus OC43PCR Not Detected (NotDetected); Human Metapneumovirus PCR Not Detected (NotDetected); Influenza A PCR Not Detected (NotDetected); Influenza B PCR Not Detected (NotDetected); Mycoplasma pneumoniae PCR Not Detected (NotDetected); Parainfluenza Virus 1 PCR Not Detected (NotDetected); Parainfluenza Virus 2 PCR Not Detected (NotDetected); Parainfluenza Virus 3 PCR Not Detected (NotDetected); Parainfluenza Virus 4 PCR Not Detected (NotDetected); Respiratory Syncytial VirusPCR DETECTED (NotDetected); Rhinovirus/Enterovirus PCR Not Detected (NotDetected)
[2024-09-05] MEDS: methylPREDNISolone 125 MG/2 ML VIAL IV STA (10:55)
[2024-09-05] MEDS: SODIUM CHLORIDE 0.9% 1,000 ML IV ONE (10:57)
[2024-09-05] MEDS: ALBUT/IPRATROP 3MG/0.5MG NEB 3 ML VIAL NEB STA (10:58)
[2024-09-05] MEDS: NovoLIN-R INSULIN PER UNIT CHARGE IV STA (11:02)
[2024-09-05] MEDS: SODIUM CHLORIDE 0.9% 500 ML IV ONE (11:02)
[2024-09-05 11:11] LABS: Base Excess VBG -8.5 mEq/L; HCO3 VBG 17 mmol/L; Oxygen Saturation VBG < 60.0 %; PCO2 VBG 36 mmHg (38-50); PO2 VBG 34 mmHg; pH VBG 7.29 (7.36-7.41)
--- NOTE | 2024-09-05 12:26 | History & Physical Report ---
Date of Service September 05, 2024 Assessment & Plan (1) COPD exacerbation: (2) RSV (acute bronchiolitis due to respiratory syncytial virus): (3) DKA, type 2: (4) Atrial fibrillation: (5) Chronic anticoagulation: (6) Coronary artery disease: (7) HTN (hypertension): (8) Dyslipidemia: Plan: Patient is 74-year-old female with PMH COPD, asthma, CAD, atrial fibrillation anticoagulated on warfarin, DM II on insulin pump, dyslipidemia, history DVT, neuropathy, prior tobacco use presented to ER with c/o cough, SOB x 4 days. Patient reports cough productive yellow sputum. #COPD Exacerbation #RSV Presented to ER afebrile, P: 111, R: 35, BP 117/59, 93% on room air WBC: 14, K: 4.4, magnesium: 2.0, CO2: 20, A, glucose: 555 VBG: pH: 7.29 CXR: no infiltrate noted In ER given albuterol neb, Solu-Medrol 125 mg IV, 1500 mL NSS Repeat evaluation with P: 106, R: 24, BP: 118/68, 93% on RA Obtain sputum culture 2 weeks ago outpatient pulmonology started Medrol dose mark and Augmentin x 21 day course. For now will hold Augmentin. Start Rocephin Will hold on further steroids at this time given hyperglycemia Duonebs, budesonide, formoterol nebs Mucinex, incentive spirometry, flutter valve Supplemental oxygen as needed CBC in am #DKA #Insulin Dependent DM II with insulin pump Not used insulin pump at home for past 4 days as reports couldn't get cartridge in. Hold on home insulin pump at this time A1c: 11.1 on 05/19/24 Random glucose: 555 In ER given insulin R 10 units IV with repeat glucose: 515 Start insulin drip 1/2 NSS +KCl Pharmacy glycemic consult BMP, phosphorus, magnesium, VBG labs Q4H Hold home metformin A1c in am #Diarrhea Reports loose stools 3 days ago. No BM reported today Has been on Augmentin If recurrent diarrhea obtain stool culture and c-diff #Elevated troponin #CAD #History chronic RCA occlusion #HTN #Dyslipidemia Denies CP Troponin: 31.8-->26 09/02/24 Echo: EF: 60-64%, grade II diastolic dysfunction, mild , severe mitral annular calcification, no MS, mild MR, no evidence pulmonary HTN Trend troponin Continue aspirin, metoprolol succinate, isosorbide, rosuvastatin #Atrial Fibrillation #History DVT #Subtherapeutic INR History cardioversion Anticoagulated on warfarin Not had warfarin for past several days INR: 1.3 Will start Lovenox while awaiting therapeutic INR. Will need close watch on INR and further warfarin dosing #Depression Continue home sertraline DVT Prophylaxis Lovenox SQ until INR therapeutic Admit PCU Full Code as per discussion with pt Follows with Natalia Heller PA-C for routine care Pt was seen and care coordinated with Dr Rosario. See addendum I spent a total of 80 minutes reviewing notes, outpatient records, labs, medication, coordinating, documenting and providing care for this patient excluding time spent in the performance of separately billed services and excluding time spent by another provider/QHP. History of Present Illness Chief Complaint: SOB Primary Care Provider: Natalia Heller PA-C Patient is 74-year-old female with PMH COPD, asthma, CAD, atrial fibrillation anticoagulated on warfarin, DM II on insulin pump, dyslipidemia, history DVT, neuropathy, prior tobacco use presented to ER with c/o cough, SOB x 4 days. Patient reports cough productive yellow sputum. Has coughing to point of emesis. Having some nausea past 3 days. States had loose stools 3 days ago but denies BM the past 2 days. States hasn't taken prescription medications including her insulin for past 4 days. Feeling generalized Reports around person that had URI symptoms. Denies known fever, GIL, dizziness, syncope, CP, palpitations, hemoptysis, rhinorrhea, abdominal pain, paresthesias, extremity edema, rashes, dysuria, hematuria. Per outpatient review seen as new patient at [facility] pulmonology on 08/21/2024 was given Augmentin x 21 days, Medrol Dosepak. Was ordered to have new PFTs, however has not been completed yet. 08/21/24 ProBNP: 657 09/02/24 Echo: EF: 60-64%, grade II diastolic dysfunction, mild , severe mitral annular calcification, no MS, mild MR, no evidence pulmonary HTN 08/29/24: CT Chest: 1. Stable sub solid nodule in the right upper lobe and ground-glass nodule in the lingula. No new or enlarging lung nodules. 2. New mild superior endplate deformity of T2 with approximately 30 percent loss of vertebral body height. No retropulsion into the canal. 3. Dilated pulmonary trunk, which can be seen in the setting of pulmonary hypertension. 4. Cirrhosis. Allergies Allergy/AdvReac Type Severity Reaction Status Date / Time alendronate sodium Allergy Severe DIFFICULTY Verified 09/21/22 22:31 BREATHING/BURNING SENSATION esomeprazole Allergy Intermediate Hives Verified 09/21/22 22:31 Home Medications Medication Instructions Recorded Confirmed Type albuterol sulfate 90 mcg/actuation 2 puff inhalation QID PRN 01/12/20 09/05/24 History aerosol inhaler (Ventolin HFA) Shortness Of Breath Or Wheezing fluticasone propionate 50 2 spray intranasal QAM 01/12/20 09/05/24 History mcg/actuation nasal spray,suspension (Flonase Allergy Relief) metformin 1,000 mg tablet 1,000 mg PO BIDM 01/12/20 09/05/24 History nitroglycerin 0.3 mg sublingual 0.3 mg sublingual .PRN/UD PRN 01/12/20 09/05/24 History tablet (Nitrostat) Chest Pain pregabalin 150 mg capsule 150 mg PO BID 01/12/20 09/05/24 History sertraline 50 mg tablet 75 mg PO HS 01/12/20 09/05/24 History trazodone 50 mg tablet 50 mg PO HS 01/12/20 09/05/24 History warfarin 5 mg tablet 5 mg PO UD 01/12/20 09/05/24 History cholecalciferol (vitamin D3) 25 1,000 unit PO QAM #30 caps 01/19/20 09/05/24 Rx mcg (1,000 unit) capsule multivitamin (Daily-Moiz tablet) 1 tab PO QAM #30 tabs 01/19/20 09/05/24 Rx metoprolol succinate 50 mg 50 mg PO BID #60 tabs 01/23/20 09/05/24 Rx tablet,extended release 24 hr cyanocobalamin (vitamin B-12) 1,000 mcg sublingual DAILY 09/21/22 09/05/24 History 1,000 mcg sublingual tablet aspirin 81 mg tablet,delayed 81 mg PO QAM 11/15/23 09/05/24 History release insulin aspart U-100 100 unit/mL 0 sliding scale dose continuous 11/15/23 09/05/24 History subcutaneous solution (Novolog subcutaneous infusion .WAITING ON U-100 Insulin aspart) NEW PUMP isosorbide mononitrate 60 mg 60 mg PO QAM 11/15/23 09/05/24 History tablet,extended release 24 hr rosuvastatin 20 mg tablet 20 mg PO QAM 11/15/23 09/05/24 History furosemide 20 mg tablet 20 mg PO 3XWK #30 tabs 11/17/23 09/05/24 Rx potassium chloride 20 mEq 20 meq PO 3XWK #30 tabs 11/17/23 09/05/24 Rx tablet,extended release amoxicillin 875 mg-potassium 1 tab PO BID 09/05/24 09/05/24 History clavulanate 125 mg tablet famotidine 40 mg tablet 40 mg PO DAILY 09/05/24 09/05/24 History Past Med/Surg History Problem List (Updated 09/05/24 @ 17:02 by AUDELIA Carballo) DKA, type 2 (Acute) RSV (acute bronchiolitis due to respiratory syncytial virus) (Acute) COPD exacerbation COVID (Acute) Pseudohyponatremia Hyperkalemia ASCVD (arteriosclerotic cardiovascular disease) Hypertensive urgency Respiratory distress Flash pulmonary edema (Acute) Hypertensive emergency (Acute) Hypotension Hypotension Hypoxia, sleep related UTI due to Klebsiella species HTN (hypertension) Acute exacerbation of congestive heart failure Diastolic heart failure Ankle fracture, bimalleolar, closed Discharge planning issues DVT prophylaxis Anemia Chronic anticoagulation (Chronic) Dyslipidemia (Chronic) Asthma (Chronic) COPD (chronic obstructive pulmonary disease) (Chronic) Brittany-prosthetic fracture around prosthetic knee Congestive heart failure (Chronic) diastolic; LVEF by echo 01/13/20 70% Acute diastolic (congestive) heart failure Hypoxia (Acute) Osteoporosis Diabetes mellitus type 2, uncontrolled Coronary artery disease Atrial fibrillation (Acute) Microvascular angina DM type 2 (diabetes mellitus, type 2) (Chronic) Medical History Benign neoplasm of colon Osteoarthritis History of DVT (deep vein thrombosis) "RLE x 2 in 1980s" 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) "Abnormal left breast mammogram 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 Estrogen receptor positive and progesterone receptor positive Status post lumpectomy with sentinel lymph node biopsy stage [id number] 04/07/2015 Status post completion of radiation therapy 07/21/2015 received 6640 cGy" On 07/25/15 17:54 Jayleen Bates wrote "Abnormal left breast mammogram 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 Estrogen receptor positive and progesterone receptor positive Status post lumpectomy with sentinel lymph node biopsy stage [id number] 04/07/2015 Status post completion of radiation therapy 07/21/2015 received 6640 cGy" On 07/25/15 17:49 Jayleen Bates wrote "Abnormal left breast mammogram 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 Estrogen receptor positive and progesterone receptor positive Status post lumpectomy with sentinel lymph node biopsy stage [id number] 04/07/2015" Surgical History H/O partial mastectomy "left breast 04/2015 with lymph node biopsy" H/O arthroscopic knee surgery H/O colonoscopy History of carpal tunnel surgery S/P cervical spinal fusion S/P dilation and curettage H/O vein stripping Family History Other Breast cancer Diabetes Heart disease Social History Smoking Status: Former smoker Tobacco Type: Cigarettes Second Hand Exposure: No; Do You Dip or Chew Tobacco: No; Hx Alcohol Use: No Hx Substance Use: No Preferred Language: Latvian Communication Ability: Effective Spot Washer Required: No Beliefs That Will Affect Care: None Current Living Situation: Spouse Current Living Situation Comment: lives at home with and step-son Other Information That Helps Us Care for You: No Feels Safe at Home: Yes Safety Concerns: Feels Safe At This Time Assistive Devices: Cane and Walker Review of Systems Review of Systems: All systems reviewed & are unremarkable except as noted in HPI & below Physical Exam Physical Exam: General: Ill appearing, obese elderly female Head: normocephalic, atraumatic Eyes: conjunctiva non-injected, anicteric ENT: normal inspection external ears, nose, mucous membranes dry Neck: supple, trachea midline, Lungs: diminished breath sounds throughout with scattered wheezing CV: tachycardia, rate 106, +murmur, no pretibial edema Abd: protuberant, normal BS, soft, non-tender Ext: no cyanosis, no calf tenderness Neuro: A&O x 3, no focal deficits noted, normal affect Skin: warm, dry Results & Data Results & Data Vital Signs (Past 12 Hours) Vital Signs Temp Pulse Pulse Resp BP Pulse Ox O2 Del Method 09/05/24 12:17 106 H 24 94 Room Air 09/05/24 12:00 110 H 31 H 118/68 97 Room Air 09/05/24 11:30 114 H 31 H 99/51 L 94 Room Air 09/05/24 11:00 104 H 17 108/56 L 100 Room Air 09/05/24 10:30 104 H 29 H 114/69 93 Room Air 09/05/24 09:56 Room Air 09/05/24 09:55 113 H 09/05/24 09:42 110 H 35 H 117/59 L 93 09/05/24 09:37 Room Air 09/05/24 09:37 37.0 C 111 H 24 117/59 L 94 Room Air 09/05/24 09:37 Room Air Laboratory Results Short CBC 09/05/24 Range/Units 09:39 WBC 14.53 H (4.8-10.8) K/ul Hgb 13.0 (12.0-16.0) g/dl Hct 40.8 (37.0-47.0) % Plt Count 139 (130-400) K/uL BMP 09/05/24 09:39 Sodium 135 L Potassium 4.4 Chloride 98 Carbon Dioxide 20 L BUN 18 Creatinine 1.04 Glucose 555 H* Calcium 8.9 Liver Function 09/05/24 Range/Units 09:39 Total Bilirubin 1.2 H (0.2-1.0) mg/dl AST 20 (13-39) U/L ALT 19 (7-52) U/L Alkaline Phosphatase 111 H (34-104) U/L Albumin 3.6 (3.4-5.0) gm/dl Diagnostic Findings Chest X-Ray 09/05/24 09:56 XR chest 1V portable CLINICAL HISTORY: Dyspnea COMPARISON STUDY: 11/15/2023 FINDINGS: There are mitral valvular calcifications. There is stable cardiomegaly without pulmonary vascular congestion. No effusion, consolidation, or pneumothorax. IMPRESSION: No acute findings. ACT 112: Negative or not required by law. Electronically signed by: Marcial Aaron M.D. 09/05/2024 10:26 AM Supervising Physician Co-Signing Physician Notes Patient seen and examined independently. Discussed with the provider. Patient is a 74-year-old female with type 2 diabetes mellitus on insulin pump who presents to the hospital with shortness of breath, cough. She has not been using her insulin for last 4 days due to illness. He was found to have mild DKA. Started on insulin pump. Admitted to PCU. Supportive care. Late entry; patient is high sensitive troponin elevated to 1400. Patient is denying any chest pain. She has a history of coronary artery disease. Will order Lipitor 40 mg, continue on aspirin, Lovenox therapeutic dose. Obtain echocardiogram and cardiology consult. I have reviewed the advanced practitioner's documentation, and I agree with, and take responsibility for the plan of care I spent a total of 30 minutes coordinating, documenting, and providing care for this patient excluding time spent in the performance of separately billed services. All of the aforementioned completed while collaborating with the assigned advanced practitioner for a full treatment plan (4) Atrial fibrillation Atrial fibrillation type: unspecified Qualified Code(s): I48.91 - Unspecified atrial fibrillation
[2024-09-05] MEDS ORDERED: HHS GOAL RANGE 250-350 mg/dl ONE (13:03)
[2024-09-05] MEDS ORDERED: PHARMACY GLYCEMIC MGMT CONSULT PRN (13:03)
[2024-09-05] MEDS ORDERED: STAT IV Infusion **Titration per Protocol STA (13:03)
--- OUTSIDE RECORDS SUMMARY | 2024-09-05 13:16 | External Medical Summary | Summary of Care ---
Author Name Unknown Organization [facility] Address [address] [facility] [address] Phone [phone] Care Team Providers Care Pond Tender Name Role Phone Natalia Heller PA-C Primary Care Provider [phone] Encounter Details Date Type Department Care Team (Late st Contact Info) Description 08/25/2024 Population Health External Data Unspecified Department Allergies Active Allergy Reactions Criticality Noted Date Comments Alendronate Sodium 06/24/2012 Burning sensation and difficulty breathing Proton Pump Inhibitors Hives 02/20/2002 nexium documented as of this encounter (statuses as of 08/25/2024) Medications Multiple Vitamin (DAILY VALUE MULTIVITAMIN) Tablet Take 1 Tablet by mouth in the morning. Active Fluticasone Propionate 50 MCG/ACT Nasal Suspension (Flonase)Indicatio ns:Chronic rhinitis Administer 2 Sprays into each nostril in the morning. 16 g 1 11/02/19 23 Active Warfarin Sodium 5 MG Oral Tablet (Coumadin)Indicati ons:long-term current use of anticoagulant therapy,Deep vein thrombosis (DVT) (HCC) TAKE ONE TABLET TO ONE AND ONE-HALF TABLET BY MOUTH EVERY DAY DIRECTED BY [facility] 135 Tablet 3 04/05/2024 7:59 AM EDT 09/13/19 24 025 Active Accu-Chek Guide In Vitro Strip (Glucose Blood)Indications: Type 2 diabetes mellitus with foot ulcer, with long-term current use of insulin (HCC),DM (diabetes mellitus) type II, controlled, with peripheral vascular disorder (HCC) Use to test blood glucose 4 times daily. E11.9 400 Strip 3 03/19/2024 12:17 PM EDT 10/04/19 24 Active Accu-Chek Guide Me w/Device KitIndications:Typ e 2 diabetes mellitus with foot ulcer, with long-term current use of insulin ([facility]),DM (diabetes mellitus) type II, controlled, with peripheral vascular disorder ([facility]) Use as directed. 10/04/19 24 Active Accu-Chek Softclix LancetsIndications :Type 2 diabetes mellitus with foot ulcer, with long-term current use of insulin ([facility]),DM (diabetes mellitus) type II, controlled, with peripheral vascular disorder ([facility]) Use to test blood glucose 4 times daily. DX: E11.9 400 Each 3 10/05/2023 6:57 AM EST 10/04/19 24 Active Rosuvastatin Calcium 20 MG Oral Tablet (Crestor)Indicatio ns:Dyslipidemia, goal LDL below 70 Take 1 Tablet by mouth in the morning. 90 Tablet 3 05/20/2024 6:57 AM EDT 10/25/19 24 Active Insulin Aspart 100 UNIT/ML Injection Solution (NovoLOG) Inject under the skin. 310 units in pump. Getting from novonordisk PAP Active Aspirin 81 MG Oral Tablet Delayed Release Take 1 Tablet by mouth in the morning. 12/11/19 24 Active Furosemide 20 MG Oral Tablet (Lasix) Take 1 Tablet by mouth once a day on Sunday, Sunday, and Sunday only. 45 Tablet 3 03/19/2024 12:17 PM EDT 12/12/19 24 Active Potassium Chloride ER 10 MEQ Oral Capsule Extended Release Take 1 Capsule by mouth once a day on Sunday, Sunday, and Sunday only. 45 Capsule 3 12/12/19 24 Active Metoprolol Succinate ER 50 MG Oral Tablet Extended Release 24 Hour (toPROL XL) TAKE ONE TABLET BY MOUTH TWICE A DAY 180 Tablet 3 05/09/2024 8:51 AM EDT 01/07/20 24 025 Active Isosorbide Mononitrate ER 60 MG Oral Tablet Extended Release 24 Hour (Imdur)Indications :HTN, goal below 130/80,Coronary artery disease involving [place] coronary artery of [place] heart without angina pectoris TAKE ONE TABLET BY MOUTH EVERY MORNING 90 Tablet 3 05/09/2024 8:51 AM EDT 01/15/20 24 025 Active metFORMIN HCl 1000 MG Oral Tablet (Glucophage)Indica tions:DM type 1 causing neurological disease, not at goal (HCC) TAKE ONE TABLET BY MOUTH TWICE A DAY WITH FOOD 200 Tablet 3 06/13/2024 3:44 PM EST 01/22/20 24 025 Active Vitamin B12 500 MCG Oral Tablet Take by mouth daily. Active Nitroglycerin 0.3 MG Sublingual Tablet Sublingual (Nitrostat)Indicat ions:Coronary artery disease of [place] artery of [place] heart with stable angina pectoris (HCC) PLACE 1 TABLET UNDER THE TONGUE EVERY 5 MINUTES UP TO 3 DOSES NEEDED FOR CHEST PAIN. IF NO RELIEF CALL 911 OR GO TO ER 25 Tablet 11 02/08/2024 8:35 AM EDT 02/05/20 24 025 Active Sertraline HCl 50 MG Oral Tablet (Zoloft) TAKE 1 AND 1/2 TABLETS BY MOUTH AT BEDTIME 135 Tablet 1 05/06/20 24 Active Pregabalin 150 MG Oral Capsule (Lyrica)Indication s:Diabetic polyneuropathy associated with type 1 diabetes mellitus (HCC) TAKE ONE CAPSULE BY MOUTH TWICE A DAY 180 Capsule 1 05/10/2024 8:07 AM EDT 05/09/20 24 025 Active Mirtazapine 30 MG Oral Tablet (Remeron)Indicatio ns:Primary insomnia,Poor appetite Take 1 Tablet by mouth at bedtime. 30 Tablet 06/02/20 24 Active Additional Information Patient not taking.Reported on 08/12/2024 Famotidine 40 MG Oral Tablet (Pepcid) Take 1 Tablet by mouth in the morning. 30 Tablet 1 07/11/2024 11:00 AM EST 06/10/20 24 Active Albuterol Sulfate HFA 108 (90 Base) MCG/ACT Inhalation Aerosol Solution Inhale 2 puffs by mouth 4 times daily 20.1 g 2 02/06/20 24 Active traZODone HCl 50 MG Oral Tablet (Desyrel) Take 1 Tablet by mouth at bedtime. Active Amoxicillin-Pot Clavulanate 875-125 MG Oral Tablet (Augmentin) Take 1 Tablet by mouth in the morning and 1 Tablet before bedtime. Do all this for 21 days. 42 Tablet 08/21/2024 2:33 PM EST 08/21/19 25 025 Active methylPREDNISolone 4 MG Oral Tablet Therapy Pack Take 2 Tablets by mouth 3 times a day for 1 day, THEN 1 Tablet 5 times a day for 1 day, THEN 1 Tablet 3 times a day for 1 day, THEN 1 Tablet 2 times a day for 1 day, THEN 1 Tablet daily before breakfast for 1 day. Day 1 - 2 tablets (4 mg) before breakfast, after lunch, and at bedtime Day 2- 1 tablets (4 mg) before breakfast, after lunch, after supper, 2 tablets (4 mg) at bedtime Day 3- 1 tablet (4 mg) before breakfast, after lunch, after supper, and a bedtime Day 4 - 1 tablet (4 mg) before breakfast, after lunch, at bedtime Day 5- 1 tablet (4 mg) before breakfast and bedtime Date 6- 1 tablet (4 mg) before breakfast. 17 Tablet 08/21/19 25 025 Active methylPREDNISolone 4 MG Oral Tablet Therapy Pack (Medrol) Take as directed 21 Tablet 08/25/2024 11:23 AM EST 08/22/19 25 Active Hospital, Clinic, or Other Facility Administered Medication Ordered Dose Route Frequency Start Date End Date Status Albuterol Sulfate (Proventil) (2.5 MG/3ML) 0.083% inhalation solution 2.5 mgIndications:COPD with exacerbation (HCC),SOB (shortness of breath),Asthma with COPD (chronic obstructive pulmonary disease) (HCC) 2.5 mg NEBULIZER PRN 08/21/2024 08/21/2025 Active documented as of this encounter (statuses as of 08/25/2024) Active Problems Problem Noted Date Diagnosed Date Diabetic polyneuropathy asso ciated with type 1 diabetes mellitus 11/23/2023 Hypotension 11/12/2023 Atrial fibrillation with rapid ventricular respo nse 11/12/2023 Type 2 diabetes mellitus with foot ulcer (CODE) 09/19/2022 Gastro-esophageal reflux disease without esophag itis 03/27/2022 Major depressive disorder, recurrent, unspecifie d 02/10/2021 DM (diabetes mellitus) type II, controlled, with peripheral vascular disorder 12/08/2020 Assessment & Plan (01/24/2024 1:51 PM EDT): "RED FLAG" Diabetic symptoms: Excessive Thirst, Confusion, and Vision Changes Goal HgbA1c <8 Diabetic Complications Vascular (examples: PVD, PAD, CAD, CVA) Neurologic (example: Peripheral Neuropathy) Renal (example: CKD, Proteinuria, Dialysis) Medication Regimen Metformin Bolus/Short Acting Insulin DM Secondary Prevention Aspirin Routine Podiatry Care Additional Comments Has insulin pump Working with MTM to improve glycemic control Coronary artery disease of n ative artery of [place] heart with stable angina pectoris 12/08/2020 Assessment & Plan (01/24/2024 1:49 PM EDT): Follows with cardiology Medically managed at this time Using ntg prn History of ankle surgery 03/24/2020 History of complete ray ampu tation of first toe of right foot 06/08/2019 Chronic atrial fibrillation 03/25/2019 Assessment & Plan (01/24/2024 1:49 PM EDT): Rate controlled Continue coumadin as per MTM Diabetic cataract, 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 02/18/2019 Type 2 diabetes mellitus wit h skin complication, with long-term current use of insulin 02/18/2019 History of DVT (deep vein thrombosis) 10/19/2017 History of breast cancer 10/19/2017 B12 deficiency 10/19/2017 Diabetic polyneuropathy asso ciated with type 2 diabetes mellitus 10/19/2017 COPD, moderate 07/09/2013 Assessment & Plan (01/24/2024 1:48 PM EDT): "RED FLAG" COPD symptoms: Increased dyspnea on exertion ("I can't walk to the kitchen or up the stairs without coughing and wheezing", "My chest feels tight any time I move") Increased shortness of breath at rest ("I struggle to breathe even when watching TV", "I have to wear or turn up my oxygen just when I'm sitting on the couch") Wheezing ("You can hear the whistling across the room") Medication Regimen All Classes - CHRISS Remote Patient Monitoring Vendor: No Connected RPM Device(s): Traditional Pulse Ox Exacerbation plan Solumedrol 40mg IM/IV Chest Xray Additional Comments: Breathing at baseline today Senile osteoporosis 02/02/2012 DYSLIPIDEMIA, GOAL LDL BELOW 100 07/15/2009 Overview (07/15/2009): Per Lipid Taxonomy. 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 0 05/03/2005 documented as of this encounter (statuses as of 08/25/2024) Resolved Problems Problem Noted Date Diagnosed Date Resolved Date Major depressive disorder, s gwendolyn episode, unspecified 12/08/2020 09/11/2022 Overview (09/11/2022): More specified/recent code listed on PL Open wound of left ankle 03/24/202003/2021 Surgical wound breakdown, dumont bsequent encounter 03/24/2020 02/10/2021 Type 2 diabetes mellitus wit h diabetic peripheral angiopathy without gangrene 07/25/2019 1 09/24/2021 Overview (07/24/2022): duplicate Current use of insulin 07/25/201902/10 Diabetic foot infection 05/02/201907/07 Cellulitis of right lower extremity 05/02/2019 07/25/2019 Osteomyelitis 05/02/2019 07/25/2019 AF (atrial fibrillation) 02/18/201908/2018 Overview (05/06/2019): history History of adenomatous polyp of colon 10/19/2017 10/08/2018 Elevated LFTs 10/19/2017 10/08/2018 DVT (deep venous thrombosis) 03/11/2015 10/19/2017 Carcinoma in situ, breast, ductal 03/02/2015 10/19/2017 Second degree sunburn 02/11/20132016 COPD, severity to be determined 08/30/2012 07/09/2013 Severe obesity with body mas s index (BMI) of 35.0 to 39.9 with serious comorbidity 01/17/2010 Overview (05/22/2018): Per Obesity Protocol, #19 ICD-10 update of inactive diagnosis Carpal tunnel syndrome 10/11/200910/19 Type 2 diabetes mellitus wit h hemoglobin A1c goal of less than 7.0% 06/03/2009 02/11/2013 Overview (11/30/2015): Per Diabetes Taxonomy. ICD-10 update of inactive term DM TYPE 1 CAUSING NEURO DZ, NOT AT GOAL 06/03/2009 02/19/2018 Overview (06/03/2009): Per Diabetes Taxonomy. Dyslipidemia, goal to be determined 06/01/2009 07/15/2009 Overview (07/15/2009): Per Lipid Taxonomy. Benign neoplasm of colon 03/16/2009 Overview (03/24/2009): adenomatous polyp--repeat 6 months Hypopotassemia 08/22/2008 07/17/2011 Follow-up examination, follo wing other surgery 08/20/2008 07/17/2011 Statin intolerance 05/22/2007 1 DM type 1 causing neurologic al disease, not at goal 05/03/2007 06/03/2009 Overview (06/03/2009): Per Diabetes Taxonomy. ADVANCE DIRECTIVE INFORMATION 04/09/2007 10/19/2017 ADVANCE DIRECTIVE INFORMATION 04/09/2007 07/17/2011 Overview (04/09/2007): No, Advance Directive brochure given to patient. Other B-complex deficiencies 03/27/2007 10/19/2017 DVT (deep venous thrombosis) 02/20/2002 10/19/2017 Anticoagulation management encounter 02/20/2002 10/19/2017 Myalgia and myositis 01/23/2000 018 Allergic disorder 01/23/2000 07/17/2011 Edema 01/23/2000 10/19/2017 Type 2 diabetes mellitus wit h hemoglobin A1c goal of less than 7.0% 01/23/2000 06/03/2009 Overview (11/30/2015): Per Diabetes Taxonomy. ICD-10 update of inactive term Tobacco use disorder 016 documented as of this encounter (statuses as of 08/25/2024) Immunizations Name Administration Dates Next Due COVID-19 [...] 65+ Yrs, IM (FLUAD) 06/18/2020 Seasonal Influenza Vac., MDV , IM, 0.5 mL (Fluzone) 06/09/2016,05/22/2014,05/05/2013,04/30,05/22/2011,06/07/2010,07/07/2008 ,05/20/2007,06/07/2006 Seasonal Influenza Virus Vac cine, Unspecified Formulation 05/08/2019,04/09/2018,06/21/2017 Seasonal Influenza, High Dos e, Trivalent, PF, IM (Fluzone HD) 04/15/2024 Seasonal Influenza, PF, 6 M & above, IM , (FluLaval or Fluzone) 05/08/2019,04/09/2018,06/21/2017 Seasonal Influenza, Quadriva lent Hd (Fluzone Hd) 04/04/2023,05/08/2022 Seasonal Influenza, Quadriva lent, No Preserve, IM 05/20/2015 Seasonal Influenza, Trivalen t, Adjuvanted, 65+ YRS, PF, (Fluad) 05/04/2019(Deferred: Patient Refused) TD, Preservative Free 07/15/2008 TDAP (age 10 and older)(Boostrix) 09/15/2014 Varicella Zoster Vaccine (Adult) 02/23/2017 Zoster Vaccine Recombinant (Shingrix) 06/11/2024 documented as of this encounter Social History Tobacco Use Types Packs/Day Years Used Date Smoking Tobacco: Former Cigarettes 2 36 0 04/19/1979 - 04/19/2015 Smokeless Tobacco: Never Alcohol Use Standard Drinks/Week Comments Not Currently 0 (1 standard drink = 0.6 oz pur e alcohol) PHQ-2 Answer Date Recorded PHQ Adult Total Score 0 11/19/2023 Hunger Vital Sign Answer Date Recorded Within the past 12 months, y ou worried that your food would run out before you got the money to buy more. Never true 11/19/19 24 Within the past 12 months, t he food you bought just didn't last and you didn't have money to get more. Never true 11/19/2023 Childcare Answer Date Recorded Do you feel overwhelmed with taking care of a child, family member or friend? No 11/19/2023 Does your family need help f inding childcare? (Household - for ages 0-17 years) Not on file 11/19/2023 Clothing Answer Date Recorded Have you been unable to get clothing when it was really needed? No 11/19/2023 Is your family able to get c lothes or diapers when needed? (Household - for ages 0-17 years) Not on file 11/19/2023 Personal Safety Answer Date Recorded Do you feel unsafe or have concerns for your saf ety? No 11/19/2023 Do you have concerns for you r family's safety? (Household - for ages 0-17 years) Not on file 11/19/2023 Utilities Answer Date Recorded Do you have trouble paying y our heating, water, or electric bill? No 11/19/2023 Is your family able to pay t he heat, water, or electric bill? (Household - for ages 0-17 years) Not on file 11/19/2023 Does your family have access to good internet? (Household - for ages 0-17 years) Not on file 11/19/2023 Employment Status Answer Date Recorded Are you unemployed or without regular income? No 11/19/2023 Does the household have a re gular source of income? (Household - for ages 0-17 years) Not on file 11/19/2023 Social Connections Answer Date Recorded How often do you feel lonely or isolated from th ose around you? Never 11/19/2023 Financial Resource Strain Answer Date R ecorded Do you have any trouble payi ng for your medications, or do you think you might in the future? No 11/19/2023 Does your family have troubl e paying for medicine? (Household - for ages 0-17 years) Not on file 11/19/2023 Transportation Needs Answer Date Record ed READ ONLY Do you have troubl e getting a ride to medical visits or work? Never True 11/19/2023 Does your family have a hard time getting a ride to doctors visits? (Household - for ages 0-17 years) Not on file 11/19/2023 Has lack of transportation k ept you from medical appointments, meetings, work, or from getting things needed for daily living? Check all that apply. (Adult - for ages 18 years and over) Not on file 11/19/2023 Do you (or your family) have trouble finding or paying for a ride (transportation)? (Household - for ages 0-17 years) Not on file 11/19/2023 Housing Stability Answer Date Recorded Do you currently live in a s helter or have no steady place to sleep at night? No 11/19/2023 READ ONLY Do you think you a re at risk of becoming homeless? No 11/19/2023 Does your family worry about paying for your home or becoming homeless? (Household - for ages 0-17 years) Not on file 0 11/19/2023 Are you homeless or worried that you might be in the future? (Adult - for ages 18 years and over) Not on file Are you (or your family) ricky eless or worried that you might be in the future? (Household - for ages 0-17 years) Not on file Food Insecurity Answer Date Recorded Do you need food for this week? No 11/19/2023 Are you able to get enough f ood for your family? (Household - for ages 0-17 years) Not on file 11/19/2023 Does your family need food t his week? (Household - for ages 0-17 years) Not on file 11/19/2023 Do you always have enough fo od for your family? 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 Not on f ile Not on file Not on file documented as of this encounter Functional Status * Are you deaf or do you have serious difficulty hearing? Answer Date of Assessment Author No 05/02/2019 3:21 PM EDT Selin Phelps RN * Are you blind or do you have serious difficulty seeing, even when wearing glasses? Answer Date of Assessment Author No 05/02/2019 3:21 PM EDT Selin Phelps RN * Do you have serious difficulty walking or climbing stairs? (5 years old or older) Answer Date of Assessment Author No 05/02/2019 3:21 PM Selin Park RN * Do you have difficulty dressing or bathing? (5 years old or older) Answer Date of Assessment Author No 05/02/2019 3:21 PM EDT Selin Phelps RN * Because of a physical, mental, or emotional condition, do you have difficulty doing errands alone such as visiting a doctors office or shopping? (15 years old or older) Answer Date of Assessment Author No 05/02/2019 3:21 PM EDSelin Summers RN documented as of this encounter Mental Status * Because of a physical, mental, or emotional condition, do you have serious difficulty concentrating, remembering, or making decisions? (5 years old or older) Answer Entry Date Author No 05/02/2019 3:21 PM EDSelin Summers RN documented in this encounter Plan of Treatment Upcoming Encounters Date Type Department Care Team (Late st Contact Info) Description 08/29/2024 8:15 AM EST [facility] [address] [facility] [place] [phone] 09/02/2024 7:15 AM EST Cardiac Studies Cardiac Studies, [facility] [address] [place] [address] 09/05/2024 9:10 AM EST Laboratory [facility], [address] [phone] [place], [facility] [place] [address] [place] [address], [place] [address] 09/05/2024 9:30 AM EST Office Visit Podiatry [facility] [address] [facility] [address] [place] [address] Kenny Archibald, [facility] [address] [place] [address] 09/05/2024 5:30 PM EST Anticoagulation Pharmacy, [address] [facility] [phone] [place] [address] [place] [address] 09/15/2024 8:00 AM EST PulmDiagnostic Pulmonary Function Lab, [facility] [address] [place] [address] [place], Pulm Function Tech 2 [address] [facility] [address] 09/15/2024 8:30 AM EST PulmDiagnostic Pul[facility] Function Lab, [facility] [address] [facility] [address] [place], Pulm Function Tech 2 [address] [place] [address] 09/22/2024 10:00 AM EST Anticoagulation Pharmacy, [address] [facility] [place] [phone] [place] [address] [place] [address] 09/22/2024 10:10 AM EST Office Visit Pharmacy, [address] [place] [phone] [facility] [address] [facility] [place] [address] 09/25/2024 11:00 AM EST Home Visit [facility], [facility] [address] [place] [address] Radu Suazo PA-C [address] [place] [address] 09/30/2024 9:20 AM EST Office Visit [facility] Disorders Ctr [facility] [address] [place] [phone] Leslee Heath DO [address] [place] [address] 10/13/2024 10:00 AM EDT Home Visit [facility], [facility] [address] [place] [address] Rosalind Smith RN [address] [place] [address] 11/10/2024 11:00 AM EDT Office Visit Family [address] [place] [phone] Natalia Heller PA-C [address] [place] [address] 02/18/2025 12:00 PM EDT Office Visit Family [address] [place] [phone] Natalia Heller PA-C [address] [place] [address] Scheduled Procedures Name Priority Associated Diagnoses Date/Ti me COLONOSCOPY FLEXIBLE PROXIMA L DIAGNOSTIC Recall Screening for colon cancer Health Maintenance Due Date Last Done Comments *BISPHONATE OR OTHER ACCEPTABLE MEDICATION NEEDED FOR OSTEOPOROSIS (REFER TO SMARTSET #2896) 08/07/2014 Adult Wellness Visit 03/27/2023 03/27/2022, 01/19/20 21 COVID-19 Vaccine ( season) 2024 05/08/2022, 07/20/2021, 10/13/2020, Additional history exists Zoster Vaccines (3 of 3) 08/06/2024 06/11/2024, 02/04 DTap/Tdap Vaccines (2 - Td or Tdap) 09/15/2024 09/15/2014, 07/15/2008, 02/09/1998 O2 ASSESSMENT COMPLETED IN PAST YEAR FOR COPD 09/18/2024 09/18/2023 HbA1c 11/07/2024 05/09/2024, 11/2023, 11/16/2023, Additional history exists Depression Monitoring 11/18/2024 11/19/2023 DXA Scan 02/19/2025 02/19/2023, 02/03, 05/12/2020, Additional history exists Albumin/Creatinine Ratio 05/09/2025 024, 01/02/2023, 09/19/2022, Additional history exists GFR 05/09/2025 05/09/2024, 050 03/2024, 11/23/2023, Additional history exists Diabetic Eye Exam 05/20/2025 05/20/2024, , 10/28/2020, Additional history exists Diabetic Foot Exam 06/10/2025 01/18/2021, 0 02/18/2019, 02/19/2018, Additional history exists Postponed from 01/18/2022 (Acute Illness) Pneumococcal Vaccine: 50+ Years Completed 01/20/2016, 01/15/2015, 09/18/2006, Additional history exists Lung Cancer Screening Completed 12/22/2022 , 12/09/2021, 12/24/2020, Additional history exists Colonoscopy Discontinued 09/18/2023, 09/06, 11/16/2020, Additional history exists Colorectal Cancer Screening Discontinued RETIRED - COLONOSCOPY-EVERY 2 YRS AGES 18-100 Discontinued 09/18/2023, 09/18/2023, 11/16/2020, Additional history exists Influenza Vaccine (FLU shot) Completed 04/15/2024, 04/04/2023, 05/08/2022, Additional history exists Alpha-1 Antitrypsin Completed 05/09/2024 VITAMIN D LEVEL ONCE IN A LIFETIME-USE SMARTSET# 08147 Completed 05/09/2024, 06/18/2020, 07/25/2019, Additional history exists Cologuard Discontinued Fecal Occult Blood Test Discontinued HPV (Gardasil) Vaccine Aged Out No lo nger eligible based on patient's age to complete this topic Hepatitis B Vaccine Aged Out No longe r eligible based on patient's age to complete this topic MENINGOCOCCAL (MENACTRA/MENVEO) Aged Out No longer eligible based on patient's age to complete this topic Sigmoidoscopy Discontinued documented as of this encounter Medical Devices Implanted Type Area Medical Assistant Cardiology Device Identifier Shelf Expiration Date Model / Serial / Lot Graft Cervical 6x8 [id number] - [id number] Implanted:Qt y: 2 on 08/21/2008 at [place] [facility] [place] - Human Spine Cervical [employer] [id number] / / Screw Spine 14mm [id number] - [id number] Implanted:Qt y: 2 on 08/21/2008 at [place] [facility] [place] N/A: Spine Cervical [employer] DE[employer] [id number] / / Depuy [place] 14 Mm Sd Con Scr Implanted:Qt y: 2 on 08/21/2008 at [place] [facility] [place] N/A: Spine Cervical [employer] 60-014 / / Description:Depuy skyline 14 mm SD con SCR 34 Mm Plate Implanted:Qt y: 1 on 08/21/2008 at [place] [facility] [place] N/A: Spine Cervical 034 / / Description:34 mm Depuy plat e 14 Mm Variable Rescue Implanted:Qt y: 2 on 08/21/2008 [place] [facility] [place]A: Spine Cervical 54-014 / / Description:14 mm variable r escue Screw 3.5x14 Mntr Fa [id number] - [id number] Implanted:Qt y: 10 on 07/13/2010 at [place] [facility] [place]A: Spine Cervical JNJ : ETHICON CARDIOVATIONS [id number] / / Devaughn 3.2x037ex [id number] - [id number] Implanted:Qt y: 1 on 07/13/2010 at [place] [facility] [place]/A: Spine Cervical JNJ : ETHICON CARDIOVATIONS [id number] / / Screw Inner Mntr [id number] - [id number] Implanted:Qt y: 8 on 07/13/2010 at [place] [facility] [place]/A: Spine Cervical JNJ : ETHICON CARDIOVATIONS [id number] / / Nut Outer Xcon [id number] - [id number] Implanted:Qt y: 2 on 07/13/2010 at [place] [facility] [place]/A: Spine Cervical JNJ : ETHICON CARDIOVATIONS [id number] / / Screw Inner Xcon [id number] - [id number] Implanted:Qt y: 2 on 07/13/2010 at [place] [facility] [place]/A: Spine Cervical JNJ : ETHICON CARDIOVATIONS [id number] / / Plate 35mm Xcon [id number] - [id number] Implanted:Qt y: 1 on 07/13/2010 at [place] [facility] [place]/A: Spine Cervical JNJ : ETHICON CARDIOVATIONS [id number] / / documented as of this encounter Advance Directives * Full Code (Latest Code Status on File) Date Activated Date Inactivated Comments 11/12/2023 12:44 PM 11/13/2023 9:17 PM This order re flects the patients wishes and were consensually agreed upon. Question Answer Comments Discussion of Advance Direct sandie occurred with: Not Discussed due to patient's condition Does the patient have a Living Will? No Does the patient have Health Care Power of Scrap Cutter? No * Full Code Date Activated Date Inactivated Comments 11/12/2023 12:33 PM 11/12/2023 12:44 PM This order r eflects the patients wishes and were consensually agreed upon. Question Answer Comments Discussion of Advance Directives occurred with: Patient * Full Code Date Activated Date Inactivated Comments 05/02/2019 4:53 PM 05/04/2019 8:34 PM This order r eflects the patients wishes and were consensually agreed upon. * Full Code Date Activated Date Inactivated Comments 05/02/2019 11:29 AM 05/02/2019 4:53 PM This order reflects the patients wishes and were consensually agreed upon. Question Answer Comments Discussion of Advance Directives occurred with: Patient Does the patient have a Living Will? No Does the patient have Health Care Power of Attor kim? No * Full Code Date Activated Date Inactivated Comments 07/13/2010 12:29 PM 07/17/2010 4:03 PM This order reflects the patients wishes and were consensually agreed upon. Question Answer Comments Discussion of Advance Directives occurred with: Not Discussed Does the patient have a Living Will? No Does the patient have Health Care Power of Attor kim? No Care Teams Pond Tender Relationship Specialty Start Date End Date Natalia Heller PA-C PCP - General Physician Rat Poisoner 01/06/24 documented as of this encounter
[2024-09-05 13:17] LABS: INR 1.3 (0.9-1.1); Prothrombin Time 13.6 Seconds (9.0-12.0)
--- OUTSIDE RECORDS SUMMARY | 2024-09-05 13:17 | External Medical Summary | Summary of Care ---
Author Name Unknown Organization [facility] Address [address] [facility] [place] [address] Phone [phone] Care Team Providers Care Visual Training Aide Name Role Phone Natalia Heller PA-C Primary Care Provider [phone] [phone] Reason for Visit * Reason Comments Pulmonary Function Test Educated pt and spouse on the use of overnight pulse ox. Pt is to return pulse ox to [facility] at the pulmonary desk. Encounter Details Date Type Department Care Team (Late st Contact Info) Description 08/25/2024 9:30 AM EST PulmDiagnostic Pulmonary Function Lab, [facility] [address] [place] [address] [facility], Pulm Function Room 1 [address] [place] [address] COPD, moderate (HCC)*; COPD with exacerbation (HCC) [J44.1] Allergies Active Allergy Reactions Criticality Noted Date [...] Warfarin Sodium 5 MG Oral Tablet (Coumadin)Indicati ons:senior living current use of anticoagulant therapy,Deep vein thrombosis (DVT) (HCC) TAKE ONE TABLET TO ONE AND ONE-HALF TABLET BY MOUTH EVERY DAY DIRECTED BY COUMADIN CLINIC 135 Tablet 3 04/05/2024 7:59 AM EDT 09/13/19 24 025 Active Accu-Chek Guide In Vitro Strip (Glucose Blood)Indications: Type 2 diabetes mellitus with foot ulcer, with long-term current use of insulin ([facility]),DM (diabetes mellitus) type II, controlled, with peripheral vascular disorder ([facility]) Use to test blood glucose 4 times daily. E11.9 400 Strip 3 03/19/2024 12:17 PM EDT 10/04/19 24 Active Accu-Chek Guide Me w/Device KitIndications:Typ e 2 diabetes mellitus with foot ulcer, with long-term current use of insulin ([facility]),DM (diabetes mellitus) type II, controlled, with peripheral vascular disorder ([facility]) Use as directed. 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 Not on f ile Not on file Not on file documented as of this encounter Last Filed Vital Signs Vital Sign Reading Time Taken Comments Blood Pressure - - Pulse 100 08/25/2024 8:33 AM EST Temperature - - Respiratory Rate - - Oxygen Saturation 92% 08/25/2024 8:33 AM EST room air Inhaled Oxygen Concentration - - Weight - - Height - - Body Mass Index - - documented in this encounter Functional Status * Are you deaf or do you have serious difficulty hearing? Answer Date of Assessment Author No 05/02/2019 3:21 PM Selin Park RN * Are you blind or do you have serious difficulty seeing, even when wearing glasses? Answer Date of Assessment Author No 05/02/2019 3:21 PM Selin Park RN * Do you have serious difficulty walking or climbing stairs? (5 years old or older) Answer Date of Assessment Author No 05/02/2019 3:21 PM Selin Park RN * Do you have difficulty dressing or bathing? (5 years old or older) Answer Date of Assessment Author No 05/02/2019 3:21 PM Selin Park RN * Because of a physical, mental, or emotional condition, do you have difficulty doing errands alone such as visiting a doctors office or shopping? (15 years old or older) Answer Date of Assessment Author No 05/02/2019 3:21 PM EDT Phelps, Selin юлия, RN documented as of this encounter Mental Status * Because of a physical, mental, or emotional condition, do you have serious difficulty concentrating, remembering, or making decisions? (5 years old or older) Answer Entry Date Author No 05/02/2019 3:21 PM EDT Selin Phelps RN documented in this encounter Plan of Treatment Upcoming Encounters Date Type Department Care Team (Late st Contact Info) Description 08/29/2024 8:15 AM EST Imaging Radiology [address] [facility] [place] [address] 09/02/2024 7:15 AM EST Cardiac Studies Cardiac Studies, [facility] [address] [facility] [place] [address] 09/05/2024 9:10 AM EST Laboratory Laboratory [facility], [address] [phone] [address] [address] 09/05/2024 9:30 AM EST Office Visit Podiatry [address] [place] [phone] Kenny Archibald, [place] [address] [place] [address] 09/05/2024 5:30 PM EST Anticoagulation Pharmacy, [facility] [address] [facility] [phone] [place] [address] [place] [address] 09/15/2024 8:00 AM EST PulmDiagnostic Pulmonary Function Lab, [facility] [address] [facility] [place] [address] [place], Pul Function Tech 2 [address] [facility] [place] [address] 09/15/2024 8:30 AM EST PulmDiagnostic Pulmonary Function Lab, [facility] [address] [place] [address] [place] Pul Function Tech 2 [address] [place] [address] 09/22/2024 10:00 AM EST Anticoagulation Pharmacy, [address] [facility] [phone] [facility] [address] [facility] [place] [address] 09/22/2024 10:10 AM EST Office Visit Pharmacy, [address] [facility] [phone] [facility] [address] [facility] [address] 09/25/2024 11:00 AM EST [facility] [address] [place] [address] Radu Suazo PA-C 132 [place] [address] 09/30/2024 9:20 AM EST Office Visit [facility] [address] [place] [address] Leslee Heath, [address] [place] [address] 10/13/2024 10:00 AM EDT [facility] [address] [place] [address] Rosalind Smith, RN [address] [place] [address] 11/10/2024 11:00 AM EDT Office Visit [facility], [address] [place] [address] Natalia Heller PA-C [address] [place] [address] 02/18/2025 12:00 PM EDT Office Visit [facility], [address] [place] [phone] Natalia Heller PA-C [address] [place] [address] Scheduled Orders Name Type Priority Associated Diagnoses Orde r Schedule NOCTURNAL HOME OXIMETRY (OP) Procedures Routine COPD with exacerbation (HCC) SOB (shortness of breath) Asthma with COPD (chronic obstructive pulmonary disease) (HCC) Former cigarette smoker Ordered: 08/21/2024 Scheduled Procedures Name Priority Associated Diagnoses Date/Ti me COLONOSCOPY FLEXIBLE PROXIMA L DIAGNOSTIC Recall Screening for colon cancer Health Maintenance Due Date Last Done Comments *BISPHONATE OR OTHER ACCEPTABLE MEDICATION NEEDED FOR OSTEOPOROSIS (REFER TO SMARTSET #1146) 08/07/2014 Adult Wellness Visit 03/27/2023 03/27/2022, 01/19/20 21 COVID-19 Vaccine ( season) 2024 05/08/2022, 07/20/2021, 10/13/2020, Additional history exists Zoster Vaccines (3 of 3) 08/06/2024 06/11/2024, 02/04 DTap/Tdap Vaccines (2 - Td or Tdap) 09/15/2024 09/15/2014, 07/15/2008, 02/09/1998 O2 ASSESSMENT COMPLETED IN PAST YEAR FOR COPD 09/18/2024 09/18/2023 HbA1c 11/07/2024 05/09/2024, 10/11/2023, 11/16/2023, Additional history exists Depression Monitoring 11/18/2024 11/19/2023 DXA Scan 02/19/2025 02/19/2023, 02/03, 05/12/2020, Additional history exists Albumin/Creatinine Ratio 05/09/2025 024, 01/02/2023, 09/19/2022, Additional history exists GFR 05/09/2025 05/09/2024, 05/0 03/2024, 11/23/2023, Additional history exists Diabetic Eye [...] D LEVEL ONCE IN A LIFETIME-USE SMARTSET# 28888 Completed 05/09/2024, 06/18/2020, 07/25/2019, Additional history exists [...] encounter Medical Devices Implanted Type Area Energy Conservation Technician Device Identifier Shelf Expiration Date Model / Serial / Lot Graft Cervical 6x8 [id number] - [id number] Implanted:Qt y: 2 on 08/21/2008 at [place] [facility] [place] Tissue - Human Spine Cervical [employer] Co [id number] / / Screw Spine 14mm [id number] - [id number] Implanted:Qt y: 2 on 08/21/2008 at [place] [facility] N/A: Spine Cervical CARSON [employer] CARSON DEPUY [id number] / / Depuy [place] 14 Mm Sd Con Scr Implanted:Qt y: 2 on 08/21/2008 at [place] [facility] N/A: Spine Cervical [employer] DEPUY 60-014 / / Description:Depuy skyline 14 mm SD con SCR 34 Mm Plate Implanted:Qt y: 1 on 08/21/2008 at [place] [facility] N/A: Spine Cervical / / Description:34 mm Depuy plat e 14 Mm Variable Rescue Implanted:Qt y: 2 on 08/21/2008 at [place] [facility] N/A: Spine Cervical / / Description:14 mm variable r escue Screw 3.5x14 Mntr Fa [id number] - [id number] Implanted:Qt y: 10 on 07/13/2010 at [place] [facility] N/A: Spine Cervical JNJ : ETHICON CARDIOVATIONS [id number] / / Devaughn [id number] - [id number] Implanted:Qt y: 1 on 07/13/2010 at [place] [facility] N/A: Spine Cervical JNJ : ETH[employer]ON CARDIOVATIONS [id number] / / Screw Inner Mntr [id number] - [id number] Implanted:Qt y: 8 on 07/13/2010 at [place] [facility] N/A: Spine Cervical JNJ : ETH[employer]ON C[employer]IOVATIONS [id number] / / Nut Outer Xcon [id number] - [id number] Implanted:Qt y: 2 on 07/13/2010 at [place] [facility] N/A: Spine Cervical JNJ : ETHICON C[employer]IOVATIONS [id number] / / Screw Inner Xcon [id number] - [id number] Implanted:Qt y: 2 on 07/13/2010 at [place] [facility] N/A: Spine Cervical JNJ : ETH[employer]ON CARDIOVATIONS [id number] / / Plate 35mm Xcon [id number] - [id number] Implanted:Qt y: 1 on 07/13/2010 at [place] [facility] N/A: Spine Cervical JNJ : [facility] CARDIOVATIONS [id number] / / documented as of this encounter Visit Diagnoses Diagnosis COPD, moderate (HCC)- Primary Chronic airway obstruction, not elsewhere classified Chronic atrial fibrillation (HCC) Atrial fibrillation 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 No * Full Code Date Activated Date [...] Power of Attor kim? No Care Teams Visual Training Aide Relationship Specialty Start Date End Date Natalia Heller PA-C PCP - General Physician Car Ferry Master 01/06/24 documented as of this encounter
--- OUTSIDE RECORDS SUMMARY | 2024-09-05 13:18 | External Medical Summary | Summary of Care ---
Author Name Unknown Organization [facility] Address [address] [facility] [place] [address] Phone [phone] Care Team Providers Care Customer Retention Specialist Name Role Phone Natalia Heller PA-C Primary Care Provider [phone] Encounter Details Date Type Department Care Team (Late st Contact Info) Description 05/16/2024 Telephone [facility] DEPT CLOSED - 07/24/24 [address] [facility] [place] [phone] Natalia Heller PA-C [address] [facility] [place] [phone] Allergies Active Allergy Reactions Criticality Noted Date Comments Alendronate Sodium 06/24/2012 Burning sensation and difficulty breathing Proton Pump Inhibitors Hives 02/20/2002 nexium documented as of this encounter (statuses as of 08/15/2024) Medications Multiple Vitamin (DAILY VALUE MULTIVITAMIN) Tablet Take 1 Tablet by mouth in the morning. Active Fluticasone Propionate 50 MCG/ACT Nasal Suspension (Flonase)Indicatio ns:Chronic rhinitis Administer 2 Sprays into each nostril in the morning. 16 g 1 11/02/19 23 Active Warfarin Sodium 5 MG Oral Tablet (Coumadin)Indicati ons:intermediate current use of anticoagulant therapy,Deep vein thrombosis (DVT) (HCC) TAKE ONE TABLET TO ONE AND ONE-HALF TABLET BY MOUTH EVERY DAY DIRECTED BY COUMADIN CLINIC 135 Tablet 3 04/05/2024 7:59 AM EDT 09/13/19 24 025 Active Accu-Chek Guide In Vitro Strip (Glucose Blood)Indications: Type 2 diabetes mellitus with foot ulcer, with long-term current use of insulin ([facility]),DM (diabetes mellitus) type II, controlled, with peripheral vascular disorder ([facility]) Use to test blood glucose 4 times daily. E11.9 400 Strip 3 03/19/2024 12:17 PM EDT 10/04/19 24 Active Accu-Chek Guide Me w/Device KitIndications:Typ e 2 diabetes mellitus with foot ulcer, with long-term current use of insulin ([facility]),DM (diabetes mellitus) type II, controlled, with peripheral vascular disorder ([facility]) Use as directed. 10/04/19 24 Active Accu-Chek Softclix LancetsIndications :Type 2 diabetes mellitus with foot ulcer, with long-term current use of insulin ([facility]),DM (diabetes mellitus) type II, controlled, with peripheral vascular disorder ([facility]) Use to test blood glucose 4 times [...] :HTN, goal below 130/80,Coronary artery disease involving viejas coronary artery of viejas heart without angina pectoris TAKE ONE TABLET [...] Tablet Sublingual (Nitrostat)Indicat ions:Coronary artery disease of viejas artery of viejas heart with stable angina pectoris (HCC) PLACE [...] 8:07 AM EDT 05/09/20 24 025 Active documented as of this encounter (statuses as of 08/15/2024) Active Problems Problem Noted Date Diagnosed Date [...] artery disease of n ative artery of viejas heart with stable angina pectoris 12/08/2020 Assessment [...] as of this encounter (statuses as of 08/15/2024) Resolved Problems Problem Noted Date Diagnosed Date [...] as of this encounter (statuses as of 08/15/2024) Immunizations Name Administration Dates Next Due COVID-19 [...] Selin Phelps RN * Do you have difficulty dressing [...] 3:21 PM EDT Selin Phelps RN documented as of this encounter Mental Status * Because of a physical, mental, or emotional condition, do you have serious difficulty concentrating, remembering, or making decisions? (5 years old or older) Answer Entry Date Author No 05/02/2019 3:21 PM EDT Selin Phelps RN documented in this encounter Miscellaneous Notes * Telephone Encounter - Elena Rivera LPN - 05/16/2024 2:09 PM EDT Attempted to call patient, no answer left a detailed message informing patient we do have her prescription here at the office for continuous pickling line pickler helper. I placed patients ozempic that came to the office through the patient assistants program in the medication room refrigerator documented in this encounter Plan of Treatment Upcoming Encounters Date Type Department Care Team (Late st Contact Info) Description 08/21/2024 10:40 AM EST Office Visit Pulmonary Medicine, [facility] [address] [facility] [place] [address] Jaspal Yoder MD [address] [place] [address] 09/05/2024 9:10 AM EST Laboratory Laboratory Patient Service [address] [phone] [facility] [address] [address] 09/05/2024 9:30 AM EST Office Visit Podiatry [address] [place] [address] Kenny Archibald, [facility] [address] [place] [address] 09/05/2024 5:30 PM EST Anticoagulation Pharmacy, [address] [facility] [phone] [facility] [address] [place] [address] 09/22/2024 10:00 AM EST Anticoagulation Pharmacy, [address] [facility] [place] [phone] [facility] [address] [place] [address] 09/22/2024 10:10 AM EST Office Visit Pharmacy, [address] [facility] [place] [address] [facility] [address] [place] [address] 09/25/2024 11:00 AM EST [facility] [address] [place], [place] [address] Radu Suazo PA-C [address] [place] [address] 10/13/2024 10:00 AM EDT [facility], [facility] [address] [place] [address] Rosalind Smith RN [address] [place] [address] 11/10/2024 11:00 AM EDT [facility] [address] [place] [address] Natalia Heller PA-C [address] [place] [address] 02/18/2025 12:00 PM EDT [facility] [address] [place] [phone] Natalia Heller PA-C [address] [place] [address] Scheduled Procedures Name Priority Associated Diagnoses Date/Ti [...] 09/19/2022, Additional history exists GFR 05/09/2025 05/09/2024, 03/2024, 11/23/2023, Additional history exists Diabetic Eye [...] D LEVEL ONCE IN A LIFETIME-USE SMARTSET# 87103 Completed 05/09/2024, 06/18/2020, 07/25/2019, Additional history exists [...] this encounter Medical Devices Implanted Type Area Data Center Consultant Device Identifier Shelf Expiration Date Model / Serial / Lot Graft Cervical 6x8 [id number] - [id number] Implanted:Qt y: 2 on 08/21/2008 at [place] [facility] Tissue - Human Spine Cervical [employer] Co [id number] / / Screw Spine 14mm 50-014 - [id number] Implanted:Qt y: 2 on 08/21/2008 at [place] [facility] N/A: Spine Cervical CAR[employer] CAR[employer] DEPUY 50-014 / / Depuy [place] 14 Mm Sd Con Scr Implanted:Qt y: 2 on 08/21/2008 at [place] [facility] N/A: Spine Cervical [employer]PUY 60-014 / / Description:Depuy skyline 14 mm SD con SCR 34 Mm Plate Implanted:Qt y: 1 on 08/21/2008 at [place] [facility] N/A: Spine Cervical [id number] / / Description:34 mm Depuy plat e 14 Mm Variable Rescue Implanted:Qt y: 2 on 08/21/2008 at [place] [facility] N/A: Spine Cervical [address] / / Description:14 mm variable r escue Screw 3.5x14 Mntr Fa [id number] - [id number] Implanted:Qt y: 10 on 07/13/2010 at [place] [facility] N/A: Spine Cervical JNJ : ETH[employer]ON C[employer]ATIONS [id number] / / Devaughn [id number] - [id number] Implanted:Qt y: 1 on 07/13/2010 at [place] [facility] N/A: Spine Cervical JNJ : [employer]ON C[employer]ATIONS [id number] / / Screw Inner Mntr [id number] - [id number] Implanted:Qt y: 8 on 07/13/2010 at [place] [facility] N/A: Spine Cervical JNJ : [employer]ON C[employer]ATIONS [id number] / / Nut Outer Xcon [id number] - [id number] Implanted:Qt y: 2 on 07/13/2010 at [place] [facility] N/A: Spine Cervical JNJ : [employer]ON C[employer] [id number] / / Screw Inner Xcon [id number] - [id number] Implanted:Qt y: 2 on 07/13/2010 at [place] [facility] N/A: Spine Cervical JNJ : ETH[employer]ON C[employer]ATIONS [id number] / / Plate 35mm Xcon [id number] - [id number] Implanted:Qt y: 1 on 07/13/2010 at [place] [facility] N/A: Spine Cervical JNJ : [employer] C[employer]ATIONS [id number] / / documented as of this encounter [...] the patient have Health Care Power of Real Estate Sales Associate? No * Full Code Date Activated Date [...] Power of Attor kim? No Care Teams Customer Retention Specialist Relationship Specialty Start Date End Date Natalia Heller PA-C PCP - General Physician Corrosion Control Technician 01/06/24 documented as of this encounter
--- OUTSIDE RECORDS SUMMARY | 2024-09-05 13:18 | External Medical Summary | Summary of Care ---
Author Name Unknown Organization [facility] [address] [facility] [facility] [address] Phone [phone] Care Team Providers Care Installer Inspector Final Name Role Phone Natalia Heller PA-C Primary Care Provider [phone] Reason for Referral * Evaluate & Treat - Unlimited Visits (Within 30 days (routine)) - Authorized Specialty Diagnoses / Procedures Referred By Roberto gomez Referred To Contact Pulmonary Diseases / Pulmonary Diagnoses COPD, moderate (HCC) Radu Suazo PA-C [address] [place] [address] Phone: tel: fax: Referral ID Status Reason Start Date Expiration Date Visits Requested Visits Authorized [id number] Authorized Specialty Services Required 08/13/2024 999 999 Question Answer Referral Priority Within 30 days (routine) Where should this appointment be scheduled? [facility] Reason for Referral? Asthma/COPD Comments Last pfts 2017 - Spirometry was restrictive but improved to normal after bronchdilator administration. There was a significant bronchodilator response based on both FVC and FEV1. Flow volumes were consistent with reduced patient effort. No prior PFT's available for comparison.This interpretation has been electronically signed: MARY LOPEZ 12/19/2017 09:24:26 AM Reason for Visit * Reason Onset Date Comments [facility]: Maintenance 08/12/2024 Encounter Details Date Type Department Care Team (Late st Contact Info) Description 08/12/2024 Telephone [facility] [place], [facility] [address] [place] [address] Rosalind Smith RN [address] [place] [address] [facility]: Maintenance Allergies Active Allergy Reactions Criticality Noted Date Comments Alendronate Sodium 06/24/2012 Burning sensation and difficulty breathing Proton Pump Inhibitors Hives 02/20/2002 nexium documented as of this encounter (statuses as of 08/13/2024) Medications Multiple Vitamin (DAILY VALUE MULTIVITAMIN) Tablet Take 1 Tablet by mouth in the morning. Active Fluticasone Propionate 50 MCG/ACT Nasal Suspension (Flonase)Indicatio ns:Chronic rhinitis Administer 2 Sprays into each nostril in the morning. 16 g 1 11/02/19 23 Active Warfarin Sodium 5 MG Oral Tablet (Coumadin)Indicati ons:senior care current use of anticoagulant therapy,Deep vein [...] type II, controlled, with peripheral vascular disorder ([facility]) Use to test blood glucose 4 times daily. E11.9 400 Strip 3 03/19/2024 12:17 PM EDT 10/04/19 24 Active Accu-Chek Guide Me w/Device KitIndications:Typ e 2 diabetes mellitus with foot ulcer, with long-term current use of insulin (HCC),DM (diabetes mellitus) type II, controlled, with peripheral vascular disorder (HCC) Use as directed. 10/04/19 24 Active Accu-Chek Softclix LancetsIndications :Type 2 diabetes mellitus with foot ulcer, with long-term current use of insulin (HCC),DM (diabetes mellitus) type II, controlled, with peripheral vascular disorder (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 (Household - for ages [...] encounter Miscellaneous Notes * Telephone Encounter - Radu Suazo PA-C - 08/13/2024 10:31 AM EST Pulm referral placed * Telephone Encounter - Rosalind Smith RN - 08/12/2024 3:28 PM EST Pt interested in seeing a throw out clerk for her COPD. She only has a rescue inhaler ordered but maybe she needs a routine? She feels her SOB has been getting worse over time and would like to see if anything could be done to help. Requesting pulmonology referral Thank you! documented in this encounter Plan of Treatment Upcoming Encounters Date Type Department Care Team (Late st Contact Info) Description 09/05/2024 9:10 AM EST [facility] [place] [address] [place] [phone] Ziyad Zarate [address] [address] 09/05/2024 9:30 AM EST Office Visit Podiatry [facility] [address] [facility] [address] [place] [phone] Kenny Archibald, [facility] [address] [place] [address] 09/05/2024 5:30 PM EST [facility], [address] [facility] [phone] [facility] [address] [place] [address] 09/22/2024 10:00 AM EST [facility], [address] [facility] [phone] [facility] [address] [place] [address] 09/22/2024 10:10 AM EST Office Visit Pharmacy, [address] [facility] [phone] [facility] [address] [place] [address] 09/25/2024 11:00 AM EST [facility] Visit [facility], [facility] [address] [facility] [place] [address] Radu Suazo PA-C [address] [place] [address] 10/13/2024 10:00 AM EDT [facility] Visit [facility], [facility] [address] [place] [address] Roslaind Smith, RN [address] [place] [address] 11/10/2024 11:00 AM EDT Office Visit [facility], [address] [place] [phone] Natalia Heller PA-C [address] [place] [address] 02/18/2025 12:00 PM EDT Office Visit [facility], [place] [address] [place] [phone] Natalia Heller PA-C [address] [place] [address] Scheduled Procedures Name Priority Associated Diagnoses Date/Ti me COLONOSCOPY FLEXIBLE PROXIMA L DIAGNOSTIC Recall Screening for colon cancer Scheduled Referrals Name Type Priority Associated Diagnoses Orde r Schedule PULMONARY REFERRAL OP Referral Within 30 days (routine) COPD, moderate (HCC) Ordered: 08/13/2024 Health Maintenance Due Date Last Done Comments [...] 09/19/2022, Additional history exists GFR 05/09/2025 05/09/2024, 0 03/2024, 11/23/2023, Additional history exists Diabetic Eye [...] D LEVEL ONCE IN A LIFETIME-USE SMARTSET# [id number] Completed 05/09/2024, 06/18/2020, 07/25/2019, Additional history exists [...] this encounter Medical Devices Implanted Type Area Manager Cash Device Identifier Shelf Expiration Date Model / Serial / Lot Graft Cervical 6x8 [id number] - [id number] [place]ed:Qt y: 2 [place] [facility] [place] Spine Cervical [employer] [id number] / / Screw Spine 14mm 50014 - [id number] Implanted:Qt y: 2 on 08/21/2008 [place] [facility] [place]: Spine Cervical [employer] DEPUY 50014 / / Depuy [place] 14 M[address] S[address] Con Scr Implanted:Qt y: [place] Spine Cervical 014 / / Description:14 mm variable r escue Screw 3.5x14 Mntr Fa [id number] - [id number] Implanted:Qt y: 10 on 07/13/2010 [place] [facility] [place] Spine Cervical JN[place] : [employer] [id number] / / Devaughn 3.1w010nm [id number] - [id number] Implanted:Qt y: 1 on 07/13/2010 [place] [facility] [place]: Spine Cervical JNJ : [employer] [id number] / / Screw Inner Mntr [id number] - [id number] Implanted:Qt y: 8 on 07/13/2010 [place] [facility] [place]: Spine Cervical JNJ : [employer] [id number] / / Nut Outer Xcon [id number] - [id number] Implanted:Qt y: 2 on 07/13/2010 [place] [facility] [place]: Spine Cervical JN[place] : [employer] [id number] / / Screw Inner Xcon [id number] - [id number] Implanted:Qt y: 2 on 07/13/2010 [place] [facility] [place]: Spine Cervical JNJ : [employer] [id number] / / Plate 35mm Xcon [id number] - [id number] Implanted:Qt y: 1 on 07/13/2010 [place] [facility] [place]: Spine Cervical JNMaddy : [employer] Overnight [id number] / / documented as of this encounter Visit Diagnoses Diagnosis COPD, moderate (HCC)- Primary Chronic airway obstruction, not elsewhere classified Chronic atrial fibrillation (HCC) Atrial fibrillation 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 No * Full Code Date Activated Date [...] Power of Attor kim? No Care Teams Installer Inspector Final Relationship Specialty Start Date End Date Natalia Heller PA-C PCP - General Physician Change Number Operator 01/06/24 documented as of this encounter
--- OUTSIDE RECORDS SUMMARY | 2024-09-05 13:18 | External Medical Summary ---
Author Name Unknown Address Unknown Organization [id number] [address] [place] [address] Laboratory Report Ordering Provider Test Date Status RACHANA MCINTOSH 08/21/2024 12:31:58 Final Observation Date Value Abnormality Reference (Units ) Status WBC, Total 08/21/2024 12:31:58 9.67 4.00-10.8 0 (K/uL) Final RBC 08/21/2024 12:31:58 3.96 3.85-5.15 (M/uL) Final Hemoglobin 08/21/2024 12:31:58 11.9 Below low normal 12 .0-15.3 (g/dL) Final HCT 08/21/2024 12:31:58 37.4 36.0-45.2 (%) Final MCV 08/21/2024 12:31:58 94.4 81.5-97.5 (fL) Final MCH 08/21/2024 12:31:58 30.1 27.0-34.0 (pg) Final MCHC 08/21/2024 12:31:58 31.8 32.0-36.0 (g/dL) Final RDW 08/21/2024 12:31:58 15.0 11.5-15.5 (%) Final Platelets 08/21/2024 12:31:58 189 140-400 (K /uL) Final MPV 08/21/2024 12:31:58 11.2 6.6-11.1 ( fL) Final Performing Location [facility] [address] [place] [address]
--- OUTSIDE RECORDS SUMMARY | 2024-09-05 13:18 | External Medical Summary | Summary of Care ---
Author Name Unknown Organization [facility] Address [address] [facility] [place] [address] Phone [phone] Care Team Providers Care Traveling Accountant Name Role Phone Natalia Heller PA-C Primary Care Provider [phone] Reason for Referral * Precert (Diagnostic Medical) (Within 10 days (routine)) - Authorized Specialty Diagnoses / Procedures Referred By Roberto gomez Referred To Contact Cardiac Studies Diagnoses COPD with exacerbation (HCC) Coronary artery disease due to calcified coronary lesion Former cigarette smoker Procedures ECHO, COMPLETE (2D), TRANS-THORACIC Amando Hough PA-C [address] [place] [address] Phone: tel: fax: Referral ID Status Reason Start Date Expiration Date V isits Requested Visits Authorized [id number] Authorized Precert 08/28/2024 999 999 * Evaluate & Treat - Unlimited Visits (Within 10 days (routine)) - Authorized Specialty Diagnoses / Procedures Referred By Contilia gomez Referred To Contact Sleep Medicine / Sleep Disorders Diagnoses COPD with exacerbation (HCC) SOB (shortness of breath) Asthma with COPD (chronic obstructive pulmonary disease) (HCC) Amando Hough PA-C [address] [place] [address] Phone: tel: fax: Referral ID Status Reason Start Date Expiration Date Visits Requested Visits Authorized [id number] Authorized Specialty Services Required 08/21/2024 2 2 Question Answer Referral Priority Within 10 days (routine) [facility] SLEEP MED ADULT REFERRAL Sleep Apnea Testing and Management Does the patient snore and/or gasp at night or has been told they stop breathing at night? Yes Where should this appointment be scheduled? [facility] Comments SOB, restless leg syndrome, insomnia * Precert (Within 10 days (routine)) - Authorized Specialty Diagnoses / Procedures [facility] Referred To Contact Radiology Diagnoses COPD with exacerbation (HCC) SOB (shortness of breath) Asthma with COPD (chronic obstructive pulmonary disease) (HCC) Former cigarette smoker Procedures CT CHEST WO CONTRAST Amando Hough PA-C [address] [place] [address] Phone: tel: fax: Referral ID Status Reason Start Date Expiration Date V isits Requested Visits Authorized [id number] Authorized 08/22/2024 999 999 Reason for Visit * Reason Comments NEW PATIENT New pulm. COPD. SOB with exertion. * Evaluate & Treat - Unlimited Visits (Within 30 days (routine)) - Authorized Specialty Diagnoses / Procedures Referred By Roberto gomez Referred To Contact Pulmonary Diseases / Pulmonary Diagnoses COPD, moderate (HCC) Radu Suazo PA-C [address] [place] [address] Phone: tel: fax: Referral ID Status Reason Start Date Expiration Date Visits Requested Visits Authorized [id number] Authorized Specialty Services Required 08/13/2024 999 999 Encounter Details Date Type Department Care Team (Late st Contact Info) Description 08/21/2024 10:40 AM EST Office Visit Pulmonary Medicine, [facility] [address] [place] [address] Jaspal Yoder MD [address] [phone] COPD with exacerbation (HCC)*; SOB (shortness of breath); Asthma with COPD (chronic obstructive pulmonary disease) (HCC); Coronary artery disease due to calcified coronary lesion; Former cigarette smoker Allergies Active Allergy Reactions Criticality Noted Date Comments Alendronate Sodium 06/24/2012 Burning sensation and difficulty breathing Proton Pump Inhibitors Hives 02/20/2002 nexium documented as of this encounter (statuses as of 08/21/2024) Medications Multiple Vitamin (DAILY VALUE MULTIVITAMIN) Tablet Take 1 Tablet by mouth in the morning. Active Fluticasone Propionate 50 MCG/ACT Nasal Suspension (Flonase)Indicatio ns:Chronic rhinitis Administer 2 Sprays into each nostril in the morning. 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 E11.9 400 Strip 3 03/19/2024 12:17 PM EDT 10/04/19 24 Active Accu-Chek Guide Me w/Device KitIndications:Typ e 2 diabetes mellitus with foot ulcer, with long-term current use of insulin (HCC),DM (diabetes mellitus) type II, controlled, with peripheral vascular disorder ([facility]) Use as directed. 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 42 Tablet 08/21/19 25 025 Active methylPREDNISolone 4 [...] breakfast. 17 Tablet 08/21/19 25 025 Active Hospital, Clinic, or Other Facility Administered Medication Ordered Dose Route Frequency Start Date End Date Status Albuterol Sulfate (Proventil) (2.5 MG/3ML) 0.083% inhalation solution 2.5 mgIndications:COPD with exacerbation (HCC),SOB (shortness of breath),Asthma with COPD (chronic obstructive pulmonary disease) (HCC) 2.5 mg NEBULIZER PRN 08/21/2024 08/21/2025 Active documented as of this encounter (statuses as of 08/21/2024) Active Problems Problem Noted Date Diagnosed Date [...] artery disease of n ative artery of igiugig heart with stable angina pectoris 12/08/2020 Assessment [...] as of this encounter (statuses as of 08/21/2024) Resolved Problems Problem Noted Date Diagnosed Date [...] as of this encounter (statuses as of 08/21/2024) Immunizations Name Administration Dates Next Due COVID-19 [...] Not on file 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 Not on f ile Not on file Not on file documented as of this encounter Last Filed Vital Signs Vital Sign Reading Time Taken Comments Blood Pressure 110/60 08/21/2024 11:12 AM EST Pulse 79 08/21/2024 11:12 AM EST Temperature 36.4 C (97.5 F) 08/21/2024 11:[address] Respiratory Rate 16 08/21/2024 11:12 AM EST Oxygen Saturation 91% 08/21/2024 11:12 AM EST ra-rest Inhaled Oxygen Concentration - - Weight 95.3 kg (210 lb) 08/21/2024 11:12 AM EST Height 165.1 cm (5' 5") 08/21/2024 11:12 AM EST Body Mass Index 34.95 08/21/2024 11:12 AM EST documented in this encounter Functional Status * [...] No 05/02/2019 3:21 PM Selin Park RN documented as of this encounter Mental Status * Because of a physical, mental, or emotional condition, do you have serious difficulty concentrating, remembering, or making decisions? (5 years old or older) Answer Entry Date Author No 05/02/2019 3:21 PM Selin Park RN documented in this encounter Nursing Notes * Katty Harry LPN - 08/21/2024 11:14 AM EST Chief Complaint Patient presents with NEW PATIENT New pulm. COPD. SOB with exertion. Interm History/Respiratory Symptoms Cough: yes- yellow phlegm Hemoptysis: no Sinus Symptoms: yes- in am nasal drainage Hospitalizations: no ED Trips: no Triggers: pollen,dust , perfume,smoke , coming from heat to cold and via versa. Nocturnal: sleeps with head elevated CPAP/BiPAP/O2: no DME Supplier: no Flu Vaccine: 2023 Pneumovax: 2015 Prevnar: 2016 COVID 19: x4. MMRC Dyspnea Scale = 4 (I am too breathless to leave the house or I am breathless when dressing) documented in this encounter Plan of Treatment Upcoming Encounters Date Type Department Care Team (Late st Contact Info) Description 08/29/2024 8:15 AM EST Imaging Radiology [address] [place] [address] 09/05/2024 9:10 AM EST Laboratory Laboratory Patient Service [address] [phone] Have, Lab [address] [place] [address] 09/05/2024 9:30 AM EST Office Visit Podiatry [address] [place] [phone] Kenny Archibald, [place] [id number] [place] [address] 09/05/2024 5:30 PM EST [facility] [place] [facility] [address] [facility] [place] [phone] Cork[place] [address] [address] 09/15/2024 8:00 AM EST PulmDiagnostic Pulmonary Function Lab, [facility] [place] [address] [place], Pulm Function Tech [address] [facility] [place] [address] 09/15/2024 8:30 AM EST PulmDiagnostic Pulmonary Function Lab, [facility] [address] [facility] [place] [address] [place], Pulm Function Tech 2 [address] [facility] [place] [address] 09/22/2024 10:00 AM EST Anticoagulation Pharmacy, [place] [phone] [facility] [address] [address] 09/22/2024 10:10 AM EST Office Visit Pharmacy, [place] [phone] [facility] [address] [facility] [place] [address] 09/25/2024 11:00 AM EST Home Visit [facility] [place], [facility] [address] [address] Radu Suazo PA-C [address] [place] [address] 09/30/2024 9:20 AM EST Office Visit [facility] [address] [place] [phone] Leslee Heath, [address] [place] [address] 10/13/2024 10:00 AM EDT [facility] Visit [facility], [facility] [address] [place] [address] Rosalind Smith, RN [address] [place] [address] 11/10/2024 11:00 AM EDT Office Visit Family Practice, [place] [address] [facility] [place] [phone] Natalia Heller PA-C [address] [place] [address] 02/18/2025 12:00 PM EDT Office Visit [facility], [place] [address] [place] [phone] Natalia Heller PA-C [address] [place] [address] Pending Results Name Type Priority Associated Diagnoses Date /Time [facility] IGE PROFILE Lab Routine COPD with exacerbation (HCC) SOB (shortness of breath) Asthma with COPD (chronic obstructive pulmonary disease) ([facility]) 08/21/2024 12:31 PM EST IGE Lab Routine COPD with exacerbation (HCC) SOB (shortness of breath) Asthma with COPD (chronic obstructive pulmonary disease) ([facility]) 08/21/2024 12:31 PM EST BNP, NT-PRO Lab Routine COPD with exacerbation (HCC) SOB (shortness of breath) Asthma with COPD (chronic obstructive pulmonary disease) ([facility]) Coronary artery disease due to calcified coronary lesion 08/21/2024 12:31 PM EST D-DIMER Lab Routine COPD with exacerbation (HCC) SOB (shortness of breath) Asthma with COPD (chronic obstructive pulmonary disease) ([facility]) Coronary artery disease due to calcified coronary lesion 08/21/2024 12:31 PM EST Scheduled Orders Name Type Priority Associated Diagnoses Orde r Schedule CT CHEST WO CONTRAST Medical Imaging Routine COPD with exacerbation (HCC) SOB (shortness of breath) Asthma with COPD (chronic obstructive pulmonary disease) ([facility]) Former cigarette smoker Expected: 08/22/2024, Expires: 09/21/2025 [facility] IGE PROFILE Lab Routine COPD with exacerbation (HCC) SOB (shortness of breath) Asthma with COPD (chronic obstructive pulmonary disease) ([facility]) Expected: 08/21/2024 (Approximate), Expires: 08/21/2025 IGE Lab Routine COPD with exacerbation (HCC) SOB (shortness of breath) Asthma with COPD (chronic obstructive pulmonary disease) ([facility]) Expected: 08/21/2024 (Approximate), Expires: 08/21/2025 D-DIMER Lab Routine COPD with exacerbation (HCC) SOB (shortness of breath) Asthma with COPD (chronic obstructive pulmonary disease) (HCC) Coronary artery disease due to calcified coronary lesion Expected: 08/22/2024, Expires: 08/21/2025 DIFFUSION CAPACITY (DLCO) Procedures Routine COPD with exacerbation (HCC) SOB (shortness of breath) Asthma with COPD (chronic obstructive pulmonary disease) (HCC) Expected: 08/28/2024, Expires: 09/21/2025 LUNG VOLUMES (PLETHYSMOGRAPHY) Procedures Routine COPD with exacerbation (HCC) SOB (shortness of breath) Asthma with COPD (chronic obstructive pulmonary disease) (HCC) Expected: 08/28/2024, Expires: 09/21/2025 PULMONARY STRESS TESTING Procedures Routine COPD with exacerbation (HCC) SOB (shortness of breath) Asthma with COPD (chronic obstructive pulmonary disease) (HCC) Expected: 08/22/2024, Expires: 09/21/2025 SPIROMETRY B/A BRONCHODILATOR Procedures Routine COPD with exacerbation (HCC) SOB (shortness of breath) Asthma with COPD (chronic obstructive pulmonary disease) (HCC) Former cigarette smoker Expected: 08/28/2024, Expires: 09/21/2025 NOCTURNAL HOME OXIMETRY (OP) Procedures Routine COPD with exacerbation (HCC) SOB (shortness of breath) Asthma with COPD (chronic obstructive pulmonary disease) (HCC) Former cigarette smoker Ordered: 08/21/2024 ECHO, COMPLETE (2D), TRANS-THORACIC Echocardiology Routine COPD with exacerbation (HCC) Coronary artery disease due to calcified coronary lesion Former cigarette smoker Expected: 08/28/2024, Expires: 09/21/2026 Scheduled Procedures Name Priority Associated Diagnoses Date/Ti me COLONOSCOPY FLEXIBLE PROXIMA L DIAGNOSTIC Recall Screening for colon cancer Scheduled Referrals Name Type Priority Associated Diagnoses Orde r Schedule SLEEP MEDICINE REFERRAL OP Referral Within 10 days (routine) COPD with exacerbation (HCC) SOB (shortness of breath) Asthma with COPD (chronic obstructive pulmonary disease) (HCC) Ordered: 08/21/2024 Health Maintenance Due Date Last Done Comments [...] D LEVEL ONCE IN A LIFETIME-USE SMARTSET# [id number] Completed 05/09/2024, 06/18/2020, 07/25/2019, Additional history exists [...] encounter Medical Devices Implanted Type Area Business Continuity Planner Device Identifier Shelf Expiration Date Model / Serial / Lot Graft Cervical 6x8 [id number] - [id number] Implanted:Qt y: 2 on 08/21/2008 at [place] [facility] [place] Tissue - Human Spine Cervical [employer] [id number] / / Screw Spine 14mm 50-014 - [id number] Implanted:Qt y: 2 on 08/21/2008 at [place] [facility] [place] N/A: Spine Cervical [employer] DEPUY 850-014 / / Depuy [place] 14 Mm Sd Con Scr Implanted:Qt y: 2 on 08/21/2008 at [place] [facility] [place] N/A: Spine Cervical [employer] 8-60-014 / / Description:Depuy skyline 14 mm SD con SCR 34 Mm Plate Implanted:Qt y: 1 on 08/21/2008 at [place] [facility] [place] N/A: Spine Cervical / / Description:34 mm Depuy plat e 14 Mm Variable Rescue Implanted:Qt y: 2 on 08/21/2008 at [place] [facility] [place] N/A: Spine Cervical [id number] / / Description:14 mm variable r escue Screw 3.5x14 Mntr Fa [id number] - [id number] Implanted:Qt y: 10 on 07/13/2010 at [place] [facility] [place] N/A: Spine Cervical JNJ : [employer] [id number] / / Devaughn 3.3q472cu [id number] - [id number] Implanted:Qt y: 1 on 07/13/2010 at [place] [facility] [place] N/A: Spine Cervical JNJ : [employer] [id number] / / Screw Inner Mntr [id number] - [id number] Implanted:Qt y: 8 on 07/13/2010 at [place] [facility] [place] N/A: Spine Cervical JNJ : [employer] [id number] / / Nut Outer Xcon [id number] - [id number] Implanted:Qt y: 2 on 07/13/2010 at [place] [facility] [place] N/A: Spine Cervical JNJ : [employer] [id number] / / Screw Inner Xcon [id number] - [id number] Implanted:Qt y: 2 on 07/13/2010 at [place] [facility] [place] N/A: Spine Cervical JNJ : [employer] [id number] / / Plate 35mm Xcon [id number] - [id number] Implanted:Qt y: 1 on 07/13/2010 at [place] [facility] [place] N/A: Spine Cervical JNJ : [employer] [id number] / / documented as of this encounter Visit Diagnoses Diagnosis COPD, moderate (HCC)- Primary Chronic airway obstruction, not elsewhere classified Chronic atrial fibrillation (HCC) Atrial fibrillation 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) DM (diabetes mellitus) type II, controlled, with peripheral vascular disorder ([facility]) Advanced care planning/counseling discussion Other specified counseling COPD with exacerbation (HCC)- Primary Obstructive chronic bronchitis with exacerbation SOB (shortness of breath) Shortness of breath Asthma with COPD (chronic obstructive pulmonary disease) (HCC) Chronic obstructive asthma, unspecified Coronary artery disease due to calcified coronary lesion Former cigarette smoker Personal history of tobacco use, presenting hazards to health documented in this encounter Advance Directives * [...] the patient have Health Care Power of Environmental Services Associate? No * Full Code Date Activated [...] Power of Attor kim? No Care Teams Traveling Accountant Relationship Specialty Start Date End Date Natalia Heller PA-C PCP - General Physician Document Advisor 01/06/24 documented as of this encounter
--- OUTSIDE RECORDS SUMMARY | 2024-09-05 13:18 | External Medical Summary ---
Author Name Unknown Address Unknown Organization [id number][facility] [place] [address] Laboratory Report Ordering Provider Test Date Status RACHANA MCINTOSH 08/21/2024 12:31:58 Final Observation Date Value Abnormality Reference (Units ) Status SYNC LEUKOCYTES IN BLOOD BY AUTOMATED COUNT 08/21/2024 12:31:58 9.67 4.00-10.80 (K/uL) Final Segs 08/21/2024 12:31:58 63.4 40.0-75.0 (%) Final Lymphs % 08/21/2024 12:31:58 22.9 18.0-42.0 (%) Final Monos 08/21/2024 12:31:58 7.8 1.0-11.0 (%) Final Eosinophils 08/21/2024 12:31:58 5.3 0.0-6.0 (%) Final Basos 08/21/2024 12:31:58 0.6 0.0-2.0 (%) Final Absolute Segs 08/21/2024 12:31:58 6.14 1.80-7.70 (K/uL) Final Lymphs, absolute 08/21/2024 12:31:58 2.21 1.00-4.80 (K/ul) Final Monos, Abs 08/21/2024 12:31:58 0.75 0.00-1.10 (K/uL) Final Eos, Abs 08/21/2024 12:31:58 0.51 0.00-0.70 (K/uL) Final Basos, Abs 08/21/2024 12:31:58 0.06 0.00-0.20 (K/uL) Final Performing Location [facility] [place] [address]
--- OUTSIDE RECORDS SUMMARY | 2024-09-05 13:18 | External Medical Summary ---
Author Name Unknown Address Unknown Organization [id number]:[facility] [facility] [address] [place] [address] Laboratory Report Ordering Provider Test Date Status RACHANA MCINTOSH 08/21/2024 12:31:58 Final Rheumatoid factor at a level above 50 IU/mL may lead to an overestimation of the D-dimer level. A normal D-dimer result (<0.50 ug/mL FEU) has a negative predictive value of approximately 95% for the exclusion of acute pulmonary embolism (PE) or deep vein thrombosis when there is low or moderate pretest PE probability. Increased D-dimer values are abnormal but do not indicate a specific disease state and the D-dimer increase does not definitively correlate with clinical severity of disease. Observation Date Value Abnormality Reference (Units ) Status Fibrin D-dimer FEU [Mass/volume] in Platelet poor plasma by Immunoassay 08/21/2024 12:31:58 0.91 Above high normal <0.50 (ug/mL FEU) Final Performing Location [facility] [place] [facility] [address] [place] [address]
--- OUTSIDE RECORDS SUMMARY | 2024-09-05 13:18 | External Medical Summary ---
Author Name Unknown Address Unknown Organization [id number]:[facility] [place] - [address] [place] [address] Laboratory Report Ordering Provider Test Date Status RAFIROSAMARBELLARACHANA OJEDA 08/21/2024 12:31:58 Final Exclude Heart Failure: <300 pg/mL
Diagnose Heart Failure:
Age <50 yr: >450 pg/mL
50-75 yr: >900 pg/mL
>75 yr: >1800 pg/mL
GFR is 30-59 mL/min: >1200 pg/mL or Age- adjusted values
GFR <30 mL/min: do not use, not reliable

Prognostic threshold: 1000 pg/mL Observation Date Value Abnormality Reference (Units ) Status BNP, Pro-hormone 08/21/2024 12:31:58 657 Above high no rmal <300 (pg/mL) Final Performing Location [facility] [place] - [address] [facility] [address]
--- OUTSIDE RECORDS SUMMARY | 2024-09-05 13:18 | External Medical Summary ---
Author Name Unknown Address Unknown Organization [id number]:[facility] [place] - [address] [facility] [address] Laboratory Report Ordering Provider Test Date Status RACHANA MCINTOSH 08/21/2024 12:31:58 Final Observation Date Value Abnormality Reference (Units ) Status Dust Mite IgE, pteronyssinus 08/21/2024 12:31:58 <0.10 <0.10 (kUa/L) Final Dust Mite IgE, farinae 08/21/2024 12:31:58 <0.10 <0.10 (kUa/L) Final Cat Epithelium IgE 08/21/2024 12:31:58 <0.10 <0.10 (kUa/L) Final Dog Dander IgE 08/21/2024 12:31:58 <0.10 <0.10 (kUa/L) Final Bermuda grass IgE 08/21/2024 12:31:58 <0.10 <0.10 (kUa/L) Final Uriel IgE 08/21/2024 12:31:58 <0.10 <0.10 (kUa/L) Final Penicillium notatum IgE 08/21/2024 12:31:58 <0.10 <0.10 (kUa/L) Final Cladosporium IgE 08/21/2024 12:31:58 <0.10 <0.10 (kUa/L) Final Aspergillus IgE 08/21/2024 12:31:58 <0.10 <0.10 (kUa/L) Final Alternaria IgE 08/21/2024 12:31:58 <0.10 <0.10 (kUa/L) Final Setomelanomma rostrata IgE Ab [Units/volume] in Serum 08/21/2024 12:31:58 <0.10 <0.10 (kUa/L) Final Pullularia IgE 08/21/2024 12:31:58 <0.10 <0.10 (kUa/L) Final Acremonium sp IgE Ab [Units/volume] in Serum 08/21/2024 12:31:58 <0.10 <0.10 (kUa/L) Final Maple IgE Ab [Units/volume] in Serum 08/21/2024 12:31:58 <0.10 <0.10 (kUa/L) Final Silver Birch IgE Ab [Units/volume] in Serum 08/21/2024 12:31:58 <0.10 <0.10 (kUa/L) Final Nelson IgE 08/21/2024 12:31:58 <0.10 <0.10 (kUa/L) Final Elm IgE 08/21/2024 12:31:58 <0.10 <0.10 (kUa/L) Final Woodbury tree IgE 08/21/2024 12:31:58 <0.10 <0.10 (kUa/L) Final Kelso IgE 08/21/2024 12:31:58 <0.10 <0.10 (kUa/L) Final White Philippe IgE 08/21/2024 12:31:58 <0.10 <0.10 (kUa/L) Final Pecan or Uvalde Tree IgE 08/21/2024 12:31:58 <0.10 <0.10 (kUa/L) Final Common ragweed chitimacha (nAmb a) 1 IgE Ab [Units/volume] in Serum 08/21/2024 12:31:58 <0.10 <0.10 (kUa/L) Final Mugwort IgE 08/21/2024 12:31:58 <0.10 <0.10 (kUa/L) Final Plaintain (Yakut) IgE 08/21/2024 12:31:58 <0.10 <0.10 (kUa/L) Final Manzo's Quarters IgE 08/21/2024 12:31:58 <0.10 <0.10 (kUa/L) Final Cocklebur IgE Ab [Units/volume] in Serum 08/21/2024 12:31:58 <0.10 <0.10 (kUa/L) Final Pigweed common IgE 08/21/2024 12:31:58 <0.10 <0.10 (kUa/L) Final Sheep sorrel IgE 08/21/2024 12:31:58 <0.10 <0.10 (kUa/L) Final Performing Location LAB[facility]ATORY [facility] - [address] [facility] [address]
--- OUTSIDE RECORDS SUMMARY | 2024-09-05 13:18 | External Medical Summary | Summary of Care ---
Author Name Unknown Organization [facility] Address [address] [address] [address] Phone [phone] Care Team Providers Care Geology Scientist Name Role Phone Natalia Heller PA-C Primary Care Provider [phone] Reason for Visit * Reason Comments Outpatient Testing Encounter Details Date Type Department Care Team (Late st Contact Info) Description 08/21/2024 12:40 PM EST Laboratory Laboratory, [facility] [address] [facility] [phone] [facility] [address] [place] [address] COPD with exacerbation (HCC); SOB (shortness of breath); Asthma with COPD (chronic obstructive pulmonary disease) (HCC); Coronary artery disease due to calcified coronary lesion Allergies Active Allergy Reactions Criticality Noted Date [...] with long-term current use of insulin ([facility]),DM (diabetes mellitus) type II, controlled, with peripheral vascular disorder ([facility]) Use to test blood glucose 4 times daily. E11.9 400 Strip 3 03/19/2024 12:17 PM EDT 10/04/19 24 Active Accu-Chek Guide Me w/Device KitIndications:Typ e 2 diabetes mellitus with foot ulcer, with long-term current use of insulin ([facility]),DM (diabetes mellitus) type II, controlled, with peripheral vascular disorder ([facility]) Use as directed. 10/04/19 24 Active Accu-Chek Softclix LancetsIndications :Type 2 diabetes mellitus with foot ulcer, with long-term current use of insulin ([facility]),DM (diabetes mellitus) type II, controlled, with peripheral vascular disorder ([facility]) Use to test blood glucose 4 times [...] days. 42 Tablet 08/21/19 25 025 Active Hospital, Clinic, [...] Taxonomy. 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 Not on f ile Not on file Not on file documented as of this encounter Functional Status * Are you deaf or do you have serious difficulty hearing? Answer Date of Assessment Author No 05/02/2019 3:21 PM BEKAT Selin Phelps RN * Are you blind [...] Description 08/29/2024 8:15 AM EST Imaging Radiology [facility] [address] [facility] [address] [facility] [place] [phone] 09/05/2024 9:10 AM EST Laboratory [facility] [phone] [address] [address] 09/05/2024 9:30 AM EST Office Visit Podiatry [address] [place] [phone] Kenny Archibald, JASMINE [address] [place] [address] 09/05/2024 5:30 PM EST Anticoagulation Pharmacy, [address] [facility] [phone] [facility] [address] [facility], [place] [address] 09/15/2024 8:00 AM EST PulmDiagnostic Pulmonary Function Lab, [facility] [address] [facility] [place] [address] [place], Pulm Function Tech 2 [address] [facility] [place] [address] 09/15/2024 8:30 AM EST PulmDiagnostic Pulmonary Function Lab, [facility] [address] [facility] [place] [address] [place], Pulm Function Tech 2 [address] [facility] [place] [address] 09/22/2024 10:00 AM EST Anticoagulation Pharmacy, [address] [facility] [phone] [facility] [address] [facility], [place] [address] 09/22/2024 10:10 AM EST Office Visit Pharmacy, [address] [facility] [phone] [facility] [address] [facility], [place] [address] 09/25/2024 11:00 AM EST [facility] Visit [facility], [facility] [address] [place] [address] Radu Suazo PA-C [address] [place] [address] 09/30/2024 9:20 AM EST Office Visit Sleep Disorders [facility] [address] [place] [phone] Leslee Heath DO [address] [place] [address] 10/13/2024 10:00 AM EDT Home Visit [facility], [facility] [address] [place] [address] Rosalind Smith, RN [address] [place] [address] 11/10/2024 11:00 AM EDT Office Visit Family Practice, [address] [place] [phone] Natalia Heller PA-C [address] [place] [address] 02/18/2025 12:00 PM EDT Office Visit Family [facility], [place] [address] [place] [phone] Natalia Heller PA-C [address] [place] [phone] Pending Results Name Type Priority Associated Diagnoses Date /Time [facility] IGE PROFILE Lab Routine COPD with exacerbation ([facility]) SOB (shortness of breath) Asthma with COPD (chronic obstructive pulmonary disease) ([facility]) 08/21/2024 12:31 PM EST IGE Lab Routine COPD with exacerbation ([facility]) SOB (shortness of breath) Asthma with COPD (chronic obstructive pulmonary disease) ([facility]) 08/21/2024 12:31 PM EST CBC WITH WBC DIFFERENTIAL Lab Routine COPD with exacerbation ([facility]) SOB (shortness of breath) Asthma with COPD (chronic obstructive pulmonary disease) ([facility]) 08/21/2024 12:31 PM EST D-DIMER Lab Routine COPD with exacerbation ([facility]) SOB (shortness of breath) Asthma with COPD (chronic obstructive pulmonary disease) (HCC) Coronary artery disease due to calcified coronary lesion 08/21/2024 12:31 PM EST CBC Lab Routine COPD with exacerbation (HCC) SOB (shortness of breath) Asthma with COPD (chronic obstructive pulmonary disease) (HCC) 08/21/2024 12:31 PM EST DIFFERENTIAL, AUTOMATED Lab Routine COPD with exacerbation (HCC) SOB (shortness of breath) Asthma with COPD (chronic obstructive pulmonary disease) (HCC) 08/21/2024 12:31 PM EST Scheduled Procedures Name Priority Associated [...] D LEVEL ONCE IN A LIFETIME-USE SMARTSET# [id number] Completed 05/09/2024, 06/18/2020, 07/25/2019, Additional history exists [...] this encounter Medical Devices Implanted Type Area Lodge Sales Associate Device Identifier Shelf Expiration Date Model / Serial / Lot Graft Cervical 6x8 [id number] - [id number] Implanted:Qt y: 2 on 08/21/2008 at [facility] [place] Tissue - Human Spine Cervical [employer] [id number] / / Screw Spine 14mm [id number] - [id number] Implanted:Qt y: 2 on 08/21/2008 at [facility] [place] N/A: Spine Cervical [employer] [id number] / / Depuy Gateway 14 Mm Sd Con Scr Implanted:Qt y: 2 on 08/21/2008 at [facility] [place] N/A: Spine Cervical [employer] 8-60-014 / / Description:Depuy skyline 14 mm SD con SCR 34 Mm Plate Implanted:Qt y: 1 on 08/21/2008 at [facility] [place] N/A: Spine Cervical [id number] / / Description:34 mm Depuy plat e 14 Mm Variable Rescue Implanted:Qt y: 2 on 08/21/2008 at [place] [facility] [place] N/A: Spine Cervical [id number] / / Description:14 mm variable r escue Screw 3.5x14 Mntr Fa [id number] - [id number] Implanted:Qt y: 10 on 07/13/2010 at [facility] [place] N/A: Spine Cervical JN[place] : [employer] [id number] / / Devaughn 3.5j684di [id number] - [id number] Implanted:Qt y: 1 on 07/13/2010 at [place] [facility] [place] N/A: Spine Cervical [place] : [employer] [id number] / / Screw Inner Mntr [id number] - [id number] Implanted:Qt y: 8 on 07/13/2010 at [place] [facility] [place] N/A: Spine Cervical JN[place] : [employer] [id number] / / Nut Outer Xcon [id number] - [id number] Implanted:Qt y: 2 on 07/13/2010 at [place] [facility] [place] N/A: Spine Cervical JN[place] : [employer] [id number] / / Screw Inner Xcon [id number] - [id number] Implanted:Qt y: 2 on 07/13/2010 at [place] [facility] [place] N/A: Spine Cervical JN[place] : [employer] [id number] / / Plate 35mm Xcon [id number] - [id number] Implanted:Qt y: 1 on 07/13/2010 at [place] [facility] [place] N/A: Spine Cervical JN[place] : [employer] [id number] / / documented as of this encounter Visit Diagnoses Diagnosis COPD, moderate (HCC)- Primary Chronic airway obstruction, not elsewhere classified Chronic atrial fibrillation (HCC) Atrial fibrillation 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 No * Full Code Date Activated Date [...] Power of Attor kim? No Care Teams Geology Scientist Relationship Specialty Start Date End Date Natalia Heller PA-C PCP - General Physician Hand Bender 01/06/24 documented as of this encounter
--- OUTSIDE RECORDS SUMMARY | 2024-09-05 13:18 | External Medical Summary ---
Author Name Unknown Address Unknown Organization [id number][place] [place] [address] [place] [address] Laboratory Report Ordering Provider Test Date Status RAHCANA MCINTOSH 08/21/2024 12:31:58 Final Observation Date Value Abnormality Reference (Units ) Status IgE 08/21/2024 12:31:58 63.4 <=214.0 (k U/L) Final Performing Location [facility] - [address] [place] [address]
--- OUTSIDE RECORDS SUMMARY | 2024-09-05 13:19 | External Medical Summary | Summary of Care ---
Author Name Unknown Organization [facility] Address [address] [address] Phone [phone] Care Team Providers Care Clinical Professor Name Role Phone Natalia Heller PA-C Primary Care Provider [phone] Reason for Visit * Reason Comments Dosage Adjustment In Person (Anticoag Cl inic) Diabetes Follow-Up Encounter Details Date Type Department Care Team (Late st Contact Info) Description 08/11/2024 1:10 PM EST Office Visit Pharmacy, [facility] [address] [place] [phone] [place], [facility] [address] [place] [address] Type 2 diabetes mellitus with foot ulcer, with long-term current use of insulin ([facility])*; DM (diabetes mellitus) type II, controlled, with peripheral vascular disorder (HCC) Allergies Active Allergy Reactions Criticality Noted Date Comments Alendronate Sodium 06/24/2012 Burning sensation and difficulty breathing Proton Pump Inhibitors Hives 02/20/2002 nexium documented as of this encounter (statuses as of 08/11/2024) Medications Multiple Vitamin (DAILY VALUE MULTIVITAMIN) Tablet Take 1 Tablet by mouth in the morning. Active Fluticasone Propionate 50 MCG/ACT Nasal Suspension (Flonase)Indicatio ns:Chronic rhinitis Administer 2 Sprays into each nostril in the morning. 16 g 1 11/02/19 23 Active Warfarin Sodium 5 MG Oral Tablet (Coumadin)Indicati ons:retirement current use of anticoagulant therapy,Deep vein thrombosis (DVT) (HCC) TAKE ONE TABLET TO ONE AND ONE-HALF TABLET BY MOUTH EVERY DAY DIRECTED BY [facility]IN CLINIC 135 Tablet 3 4 7:59 AM EDT 09/13/19 24 025 Active Accu-Chek Guide In Vitro Strip (Glucose Blood)Indications: Type 2 diabetes mellitus with foot ulcer, with long-term current use of insulin ([facility]),DM (diabetes mellitus) type II, controlled, with peripheral vascular disorder ([facility]) Use to test blood glucose 4 times daily. E11.9 400 Strip 3 4 12:17 PM EDT 10/04/19 24 Active Accu-Chek Guide Me w/Device KitIndications:Typ e 2 diabetes mellitus with foot ulcer, with long-term current use of insulin ([facility]),DM (diabetes mellitus) type II, controlled, with peripheral vascular disorder ([facility]) Use as directed. 10/04/19 24 Active Accu-Chek Softclix LancetsIndications :Type 2 diabetes mellitus with foot ulcer, with long-term current use of insulin ([facility]),DM (diabetes mellitus) type II, controlled, with peripheral vascular disorder ([facility]) Use to test blood glucose 4 times daily. DX: E11.9 400 Each 3 4 6:57 AM EST 10/04/19 24 Active Rosuvastatin Calcium 20 MG Oral Tablet (Crestor)Indicatio ns:Dyslipidemia, goal LDL below 70 Take 1 Tablet by mouth in the morning. 90 Tablet 3 4 6:57 AM EDT 10/25/19 24 Active Insulin [...] Sunday, and Sunday only. 45 Tablet 3 4 12:17 PM EDT 12/12/19 24 Active Potassium Chloride ER 10 MEQ Oral Capsule Extended Release Take 1 Capsule by mouth once a day on Sunday, Sunday, and Sunday only. 45 Capsule 3 12/12/19 24 Active Metoprolol Succinate ER 50 MG Oral Tablet Extended Release 24 Hour (toPROL XL) TAKE ONE TABLET BY MOUTH TWICE A DAY 180 Tablet 3 4 8:51 AM EDT 01/07/20 24 025 Active Isosorbide Mononitrate ER 60 MG Oral Tablet Extended Release 24 Hour (Imdur)Indications :HTN, goal below 130/80,Coronary artery disease involving [place] coronary artery of [place] heart without angina pectoris TAKE ONE TABLET BY MOUTH EVERY MORNING 90 Tablet 3 4 8:51 AM EDT 01/15/20 24 025 Active metFORMIN HCl 1000 MG Oral Tablet (Glucophage)Indica tions:DM type 1 causing neurological disease, not at goal (HCC) TAKE ONE TABLET BY MOUTH TWICE A DAY WITH FOOD 200 Tablet 3 4 3:44 PM EST 01/22/20 24 025 Active Vitamin B12 500 MCG Oral Tablet Take by mouth daily. Active Nitroglycerin 0.3 MG Sublingual Tablet Sublingual (Nitrostat)Indicat ions:Coronary artery disease of [place] artery of [place] heart with stable angina pectoris (HCC) PLACE 1 TABLET UNDER THE TONGUE EVERY 5 MINUTES UP TO 3 DOSES NEEDED FOR CHEST PAIN. IF NO RELIEF CALL 911 OR GO TO ER 25 Tablet 11 4 8:35 AM EDT 02/05/20 24 025 Active Sertraline HCl 50 MG Oral Tablet (Zoloft) TAKE 1 AND 1/2 TABLETS BY MOUTH AT BEDTIME 135 Tablet 1 05/06/20 24 Active Pregabalin 150 MG Oral Capsule (Lyrica)Indication s:Diabetic polyneuropathy associated with type 1 diabetes mellitus (HCC) TAKE ONE CAPSULE BY MOUTH TWICE A DAY 180 Capsule 1 4 8:07 AM EDT 05/09/20 24 025 Active Mirtazapine 30 MG Oral Tablet (Remeron)Indicatio ns:Primary insomnia,Poor appetite Take 1 Tablet by mouth at bedtime. 30 Tablet 06/02/20 24 Active Additional Information Patient taking differently: 15 mgOral HS, Reported on 07/09/2024 Famotidine 40 MG Oral Tablet (Pepcid) Take 1 Tablet by mouth in the morning. 30 Tablet 1 4 11:00 AM EST 06/10/20 Active Albuterol Sulfate HFA 108 (90 Base) MCG/ACT Inhalation Aerosol Solution Inhale 2 puffs by mouth 4 times daily 20.1 g 2 02/06/20 24 Active Ozempic (2 MG/DOSE) 8 MG/3ML Subcutaneous Solution Pen-injector (Semaglutide (2 MG/DOSE)) Inject 2 mg under the skin once a week. Sundays. Obtaining from [employer]. -- ON HOLD per MTM as of 06/11/24 025 Discontin ued(End of Procedure ) documented as of this encounter (statuses as of 08/11/2024) Active Problems Problem Noted Date Diagnosed Date [...] artery disease of n ative artery of turtle mountain heart with stable angina pectoris 12/08/2020 Assessment [...] Per Lipid Taxonomy. 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 (Household - for ages [...] Assessment Author No 05/02/2019 3:21 PM [place]in [place], [place] * Are you blind or do you have serious difficulty seeing, even when wearing glasses? Answer Date of Assessment Author No 05/02/2019 3:21 PM Selin Park, [place] * Do you have serious difficulty walking [...] Selin Park RN documented in this encounter Progress Notes * Shanthi Franks, [facility] - 08/11/2024 1:04 PM EST Medication Therapy Disease Management [facility] - Diabetes Management Progress Note Graciela Mobley, identified by name and date of , is a 74 year old female being seen for diabetes management/education. Patient presents for return diabetic visit. DIABETES: Current diabetic medications: Metformin 1000mg twice daily CONTINUE TO HOLD Ozempic 2 mg once weekly- Sundays GFR 74 as of 08/30/23 Medtronic 780G Insulin Pump (Serial Number: [id number]) Infusion Set: Quick set Insulin: Novolog Basal Rate: midnight to 6am: 8.0 units/hour (increased) 6am to noon: 8.0 units/hour (increased) noon to midnight 8.9 units/hour Bolus: 25 units with breakfast, 45 units with lunch and 40 units with supper (adds difference to preset bolus of 25 for lunch and supper) Bolus wizard: not using ICR: 5 (using preset) ISF: 10 Blood Glucose Goals: 96-180 Active Insulin Time: 2 hours Back up plan in event of pump malfunction: Novolog vial with insulin needles Toujeo U300 60 units BID Medication Injection Site: Abdomen Lifestyle: Diet: unchanged/worsened due to holiday season Considerations: - over [employer] income as of 2021 - patient approved for NovoNordisk PAP -- re-enroll in Sep 2024 - omnipod not an option due to cost (on [facility] Gold, would push to [employer] immediately) + pt's current insulin requirement. Dexcom G7: Patient Education and Review Patient provided G7 CGM components and training manual. Reviewed the following information with patient using provided trading manager literature: Introduced CGM and components How to set up display device (cell phone with Dexcom [id number]) Follow the onscreen instructions on emulsion operator or appt to enter: Low and high alerts Sensor code Insert sensor Choose sensor site Insert sensor with applicator Pair sensor Wait for sensor to pair Tap start sensor No readings during the 30 minute warmup Keep display device within 20 feet during warmup Home screen overview Review home screen overview in using your G7 with patient Home screen shows Sensor glucose readings Trend arrow Trend graph High and low alerts Treatment decisions Review treatment decisions in using your G7 with patient Use your meter if: Your G7 readings don't match your symptoms Your G7 doesn't show both a number and an arrow Ending Sensor Session Review ending your sensor session in using your G7 with patient Remove sensor from body Patient set up personal device and self-inserted sensor and transmitter in office independently of pharmacist involvement other than for material review and support. ASSESSMENT & PLAN: ICD-10-CM 1. Type 2 diabetes mellitus with foot ulcer, with long-term current use of insulin ([facility]) E11.621 L97.509 Z79.4 2. DM (diabetes mellitus) type II, controlled, with peripheral vascular disorder ([facility]) E11.51 Follow up in 5 weeks for first dexcom download and pump setting adjustment. Patient to remain off ozempic due to worsening of (?) gastroparesis. If patient has tests completed for confirmation of gastroparesis, then may be best to change her insulin to Novolin R to better match the delayed digestion MEDICATION CHANGES: Diabetic Medications: Metformin 1000mg twice daily STOP Ozempic 2 mg once weekly- Sundays GFR 75 as of 05/09/24 Medtronic 780G Insulin Pump (Serial Number: [id number]) Infusion Set: Quick set Insulin: Novolog Basal Rate: midnight to 6am: 8.0 units/hour 6am to noon: 8.0 units/hour noon to midnight 8.9 units/hour Bolus: 25 units with breakfast, 45 units with lunch and 40 units with supper (adds difference to preset bolus of 25 for lunch and supper) Bolus wizard: not using ICR: 5 (using preset) ISF: 10 Blood Glucose Goals: 96-180 Active Insulin Time: 2 hours Back up plan in event of pump malfunction: Novolog vial with insulin needles Toujeo U300 60 units BID HEALTH MAINTENANCE INTERVENTIONS: Labs: Up to Date Immunizations: Up to Date Foot Exam: Up to Date Eye Exam: Up to Date Annual Wellness Visit: Up to Date FOLLOW UP: Return to clinic in 5 weeks 09/05/2024 I spent a total of 30-39 minutes (exact time 34 mins) on the date of service in preparation, delivery, and documentation of the care provided to Graciela Mobley excluding any time spent in the performance of separately billed services. Shanthi Franks [facility] Clinical Pharmacist - Buyer Intern Medication Therapy Management [facility] 08/11/2024, 1:04 PM documented in this encounter Plan of Treatment Upcoming Encounters Date Type Department Care Team ([facility] st Contact Info) Description 08/12/2024 4:00 PM EST [facility] Visit [facility] [address] [facility] [address] Rosalind Smith, RN [address] [facility] [place] [address] 09/05/2024 9:10 AM EST [facility] [phone] [address] [address] 09/05/2024 9:30 AM EST Office Visit Podiatry [address] [place] [phone] Kenny Archibald DPM [facility] [place] [address] 09/05/2024 5:30 PM EST Anticoagulation Pharmacy, [address] [facility] [address] [phone] [facility] [address], [place] [address] 09/22/2024 10:00 AM EST Anticoagulation Pharmacy, [address] [phone] [facility] [address], [place] [address] 09/22/2024 10:10 AM EST Office Visit Pharmacy, [address] [place], [place] [phone] [facility] [address], [place] [address] 09/25/2024 11:00 AM EST [facility] [address] [facility] [place] [address] Radu Suazo PA-C [address] [place] [phone] 11/10/2024 11:00 AM EDT Office Visit Family [facility] [address] [place] [phone] Natalia Heller PA-C [address] [place] [address] 02/18/2025 12:00 PM EDT Office Visit [facility] [address] Daniel [place] [address] [place] [phone] Natalia Heller PA-C [address] [place] [address] Scheduled Procedures Name Priority Associated Diagnoses Date/Ti [...] FOR COPD 09/18/2024 09/18/2023 HbA1c 11/07/2024 05/09/2024, 1011/2023, 11/16/2023, Additional history exists Depression Monitoring 11/18/2024 [...] D LEVEL ONCE IN A LIFETIME-USE SMARTSET# [id number] Completed 05/09/2024, 06/18/2020, 07/25/2019, Additional history exists [...] this encounter Medical Devices Implanted Type Area Blow Down Operator Device Identifier Shelf Expiration Date Model / Serial / Lot Graft Cervical 6x8 [id number] - [id number] Implanted:Qt y: 2 on 08/21/2008 at [place] [facility] [place] - Human Spine Cervical [employer] [id number] / / Screw Spine 14mm 50-014 - [id number] Implanted:Qt y: 2 on 08/21/2008 at [place] [facility] [place]A: Spine Cervical [employer] DEPUY 8-50-014 / / Depuy [place] 14 Mm Sd Con Scr Implanted:Qt y: 2 on 08/21/2008 at [place] [facility] [place]: Spine Cervical [employer] 8-60-014 / / Description:Depuy [place] 14 mm SD con SCR 34 Mm Plate Implanted:Qt y: 1 on 08/21/2008 at [place] [facility] [place]: Spine Cervical 1867-09-034 / / Description:34 mm Depuy plat e 14 Mm Variable Rescue Implanted:Qt y: 2 on 08/21/2008 at [place] [facility] [place]A: Spine Cervical 54-014 / / Description:14 mm variable r escue Screw 3.5x14 Mntr Fa [id number] - [id number] Implanted:Qt y: 10 on 07/13/2010 at [place] [facility] [place]: Spine Cervical JNJ : [employer] [id number] / / [place]augh[place] 3.1b094qn [id number] - [id number] Implanted:Qt y: 1 on 07/13/2010 at [place] [facility] [place]: Spine Cervical JNJ : [employer] [id number] / / Screw Inner Mntr [id number] - [id number] Implanted:Qt y: 8 on 07/13/2010 at [place] [facility] [place]: Spine Cervical JNJ : [employer] [id number] / / Nut Outer Xcon [id number] - [id number] Implanted:Qt y: 2 on 07/13/2010 at [place] [facility] [place]: Spine Cervical JNJ : [employer] [id number] / / Screw Inner Xcon [id number] - [id number] Implanted:Qt y: 2 on 07/13/2010 at [place] [facility] [place]: Spine Cervical JNJ : [employer] [id number] / / Plate 35mm Xcon [id number] - [id number] Implanted:Qt y: 1 on 07/13/2010 at [place] [facility] [place]: Spine Cervical JNJ : [employer] [id number] / / documented as of this encounter Visit Diagnoses Diagnosis COPD, moderate (HCC)- Primary Chronic airway obstruction, not elsewhere classified Chronic atrial fibrillation (HCC) Atrial fibrillation Coronary artery disease of [place] artery of [place] heart with stable angina pectoris (HCC) DM (diabetes mellitus) type II, controlled, with peripheral vascular disorder (HCC) Advanced care planning/counseling discussion Other specified counseling Type 2 diabetes mellitus with foot ulcer, with long-term current use of insulin (HCC)- Primary DM (diabetes mellitus) type II, controlled, with peripheral vascular disorder (HCC) documented in this encounter Advance Directives * [...] the patient have Health Care Power of Medication Technician? No * Full Code Date Activated [...] Power of Attor kim? No Care Teams Clinical Professor Relationship Specialty Start Date End Date Natalia Heller PA-C PCP - General Physician Biomedical Technician 01/06/24 documented as of this encounter
--- OUTSIDE RECORDS SUMMARY | 2024-09-05 13:19 | External Medical Summary | Summary of Care ---
Author Name Unknown Organization [facility] Address [address] [facility] [place] [address] Phone [phone] Care Team Providers Care Set Up Mechanic Stamping Machines Name Role Phone Natalia Heller PA-C Primary Care Provider [phone] [phone] Reason for Visit * Reason Comments Dosage Adjustment In Person (Anticoag Cl inic) Encounter Details Date Type Department Care Team (Latest Contact Info) Description 08/11/2024 1:00 PM EST Anticoagulation Pharmacy, [facility] [address] [place] [address] [facility] [address] [place] [id number] Anticoagulation management encounter*; History of DVT (deep vein thrombosis); Chronic atrial fibrillation (HCC) Allergies Active Allergy [...] Warfarin Sodium 5 MG Oral Tablet (Coumadin)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,Deep vein thrombosis (DVT) ([facility]) TAKE ONE TABLET TO ONE [...] :HTN, goal below 130/80,Coronary artery disease involving nez perce coronary artery of nez perce heart without angina pectoris TAKE ONE TABLET [...] Tablet Sublingual (Nitrostat)Indicat ions: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 Medication Therapy Disease Management - Anticoagulation Patient: Graciela Mobley | : 1950 Subjective Patient-Reported Symptoms: Patient Findings Positives: Change in activity (moving around more), Missed doses (missed yesterday) Negatives: Signs/symptoms of thrombosis, Signs/symptoms of bleeding, Change in health, Change in alcohol use, Upcoming invasive procedure, Extra doses, Change in medications, Change in diet/appetite,Bruising Objective Current Warfarin Dose As of 08/11/2024 Warfarin maintenance plan: 10 mg (5 mg x 2) every Sun, Tue, Karen; 5 mg (5 mg x 1) all other days INR Result As of 08/11/2024 INR goal: 2.0-3.0 INR used for dosin.3 (08/11/2024) Assessment & Plan Warfarin Plan As of 08/11/2024 Full warfarin instructions: 08/11: 15 mg; 08/12: 15 mg; Otherwise 10 mg every Sun, Tue, Karen; 5 mg all other days Next INR check: 09/05/2024 Repeat PT/INR in 3 week(s) Weekly dose: not changed Additional Dosing Information: Description I spent a total of 10-19 minutes (exact time 10 mins) on the date of service in preparation, delivery, and documentation of the care provided to Graciela Mobley excluding any time spent in the performance of separately billed services or time spent by another provider/QHP. Shanthi Franks RPh Clinical Pharmacist 08/11/2024, 1:04 PM documented in this encounter Plan of Treatment Upcoming Encounters Date Type Department Care Team (Late st Contact Info) Description 08/12/2024 4:00 PM EST [facility] [place] [address] [place] [address] Rosalind Smith, RN [address] [place] [address] 09/05/2024 9:10 AM EST Laboratory Laboratory Patient Service [address] [phone] Tessa, Lab Lock [address] [place] [address] 09/05/2024 9:30 AM EST Office Visit Podiatry [address] [place] [phone] Kenny Archibald, [facility] [address] [place] [address] 09/05/2024 5:30 PM EST Anticoagulation Pharmacy, [place] [address] [place] [phone] [facility] [address] [place] [address] 09/22/2024 10:00 AM EST Anticoagulation Pharmacy, [place] [address] [place] [phone] [facility] [address] [place] [address] 09/22/2024 10:10 AM EST Office Visit Pharmacy, [address] [facility] [phone] [facility] [address] [place] [address] 09/25/2024 11:00 AM EST [facility], [facility] [address] [place] [address] Radu Sauzo PA-C [address] [place] [address] 11/10/2024 11:00 AM EDT Office Visit [facility], [address] [place] [phone] Natalia Heller PA-C [address] [place] [address] 02/18/2025 12:00 PM EDT Office Visit [facility], [address] [place] [phone] Natalia Heller PA-C [address] [place] [address] Scheduled Procedures Name Priority Associated Diagnoses Date/Ti [...] FOR COPD 09/18/2024 09/18/2023 HbA1c 11/07/2024 05/09/2024, 10/0 11/2023, 11/16/2023, Additional history exists Depression Monitoring [...] D LEVEL ONCE IN A LIFETIME-USE SMARTSET# [id number] Completed 05/09/2024, 06/18/2020, 07/25/2019, Additional history exists [...] this encounter Medical Devices Implanted Type Area Lighter Captain Device Identifier Shelf Expiration Date Model / Serial / Lot Graft Cervical 6x8 [id number] - [id number] Implanted:Qt y: 2 on 08/21/2008 at [place] [facility] [place] Tissue - Human Spine Cervical Lifenet Co [id number] / / Screw Spine 14mm - [id number] Implanted:Qt y: 2 on 08/21/2008 at OR [facility] [place] N/A: Spine Cervical CARSON [employer] CARSON DEPUY 50 / / Depuy [place] 14 Mm Sd Con Scr Implanted:Qt y: 2 on 08/21/2008 at OR [facility] [place] N/A: Spine Cervical CARSON [employer] CARSON DEPUY 60 / / Description:Depuy skyline 14 mm SD con SCR 34 Mm Plate Implanted:Qt y: 1 on 08/21/2008 at OR [facility] [place] N/A: Spine Cervical / / Description:34 mm Depuy plat e 14 Mm Variable Rescue Implanted:Qt y: 2 on 08/21/2008 at [place] [facility] [place] N/A: Spine Cervical / / Description:14 mm variable r escue Screw 3.5x14 Mntr Fa [id number] - [id number] Implanted:Qt y: 10 on 07/13/2010 at OR [facility] [place] N/A: Spine Cervical JNJ : ETHICON C[employer]IOVATIONS [id number] / / Devaughn [id number] - [id number] Implanted:Qt y: 1 on 07/13/2010 at [place] [facility] [place] N/A: Spine Cervical JNJ : ETHICON CARDIOVATIONS [id number] / / Screw Inner Mntr [id number] - [id number] Implanted:Qt y: 8 on 07/13/2010 at [place] [facility] [place] N/A: Spine Cervical JNJ : ETHICON CARDIOVATIONS [id number] / / Nut Outer Xcon [id number] - [id number] Implanted:Qt y: 2 on 07/13/2010 at [place] [facility] [place] N/A: Spine Cervical JNJ : ETHICON CARDIOVATIONS [id number] / / Screw Inner Xcon [id number] - [id number] Implanted:Qt y: 2 on 07/13/2010 at [place] [facility] [place] N/A: Spine Cervical JNJ : ETHICON CARDIOVATIONS [id number] / / Plate 35mm Xcon [id number] - [id number] Implanted:Qt y: 1 on 07/13/2010 at [place] [facility] [place] N/A: Spine Cervical JNJ : ETHICON CARDIOVATIONS [id number] / / documented as of this encounter Procedures Procedure Name Priority Date/Time Associated Diagnosis Comments INR FINGERSTICK, POINT OF CARE STAT 08/11/2024 1:10 PM EST History of DVT (deep vein thrombosis) Chronic atrial fibrillation (HCC) Anticoagulation management encounter documented in this encounter Results * INR FINGERSTICK, POINT OF CARE (08/11/2024 1:10 PM EST) Fingerstick INR 1.3 INR 2:49 PM EST [facility]- Blood 08/11/2024 1:10 PM EST 08/11/2024 2:49 PM EST Narrative [facility]-01 - 08/11/2024 2:49 PM EST Therapeutic ranges for non-operative patients: Prophylaxsis/treatment of DVT: (Range:2.0-3.0) Treatment of pulmonary embolism:(Range:2.0-3.0) Prevention of systemic embolism from: -tissue heart valves -acute myocardial infarction -valvular heart disease -atrial fibrillation (Range: 2.0-3.0) Mechanical prosthetic valves: (Range: 2.5-3.5) Shanthi Franks [facility] LAB POINT OF CARE TEST DOCKED DEVICE UNSOLICITED RESULTS Final Result [facility] [address] [place] [address], [facility] documented in this encounter Visit Diagnoses Diagnosis COPD, moderate (HCC)- Primary Chronic airway obstruction, not elsewhere classified Chronic atrial fibrillation (HCC) Atrial fibrillation 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 No * Full Code Date Activated Date [...] Power of Attor kim? No Care Teams Set Up Mechanic Stamping Machines Relationship Specialty Start Date End Date Natalia Heller PA-C PCP - General Physician Physical Testing Supervisor 01/06/24 documented as of this encounter
--- OUTSIDE RECORDS SUMMARY | 2024-09-05 13:19 | External Medical Summary ---
Author Name Unknown Address Unknown Organization : Laboratory Report Ordering Provider Test Date Status LETICIA HOOD 08/11/2024 13:10:04 Final Therapeutic ranges for non-o perative patients:
Prophylaxsis/treatment of DVT: (Range:2.0-3.0)
Treatment of pulmonary embolism:(Range:2.0-3.0)
Prevention of systemic embolism from:
-tissue heart valves
-acute myocardial infarction
-valvular heart disease
-atrial fibrillation
(Range: 2.0-3.0)
Mechanical prosthetic valves: (Range: 2.5-3.5) Observation Date Value Abnormality Reference (Units ) Status INR in Capillary blood by Coagulation assay 08/11/2024 13:10:04 1.3 (INR) Final Performing Location
--- OUTSIDE RECORDS SUMMARY | 2024-09-05 13:19 | External Medical Summary | Summary of Care ---
Author Name Unknown Organization [facility] Address [address] [facility] [place] [address] Phone [phone] Care Team Providers Care Nursery Laborer Name Role Phone Natalia Heller PA-C Primary Care Provider [phone] [phone] Reason for Visit * Reason Onset Date Comments [facility]: Maintenance 07/23/2024 Encounter Details Date Type Department Care Team (Late st Contact Info) Description 07/23/2024 1:45 PM EST Scheduled Telephone [facility], [facility] [address] [place] [address] [facility] [address] [place] [address] Allergies Active Allergy Reactions Criticality Noted Date Comments Alendronate Sodium 06/24/2012 Burning sensation and difficulty breathing Proton Pump Inhibitors Hives 02/20/2002 nexium documented as of this encounter (statuses as of 07/23/2024) Medications Multiple Vitamin (DAILY VALUE MULTIVITAMIN) Tablet Take 1 Tablet by mouth in the morning. Active Fluticasone Propionate 50 MCG/ACT Nasal Suspension (Flonase)Indicatio ns:Chronic rhinitis Administer 2 Sprays into each nostril in the morning. 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 E11.9 400 Strip 3 03/19/2024 12:17 PM EDT 10/04/19 24 Active Accu-Chek Guide Me w/Device KitIndications:Typ e 2 diabetes mellitus with foot ulcer, with long-term current use of insulin ([facility]),DM (diabetes mellitus) type II, controlled, with peripheral vascular disorder ([facility]) Use as directed. 10/04/19 24 Active Accu-Chek Softclix LancetsIndications :Type 2 diabetes mellitus with foot ulcer, with long-term current use of insulin ([facility]),DM (diabetes mellitus) type II, controlled, with peripheral vascular disorder ([facility]) Use to test blood glucose 4 times [...] :HTN, goal below 130/80,Coronary artery disease involving akiak coronary artery of akiak heart without angina pectoris TAKE ONE TABLET [...] Oral Tablet Take by mouth daily. Active Ozempic (2 MG/DOSE) 8 MG/3ML Subcutaneous Solution Pen-injector (Semaglutide (2 MG/DOSE)) Inject 2 mg under the skin once a week. Sundays. Obtaining from [facility]. -- ON HOLD per [place] as of 06/11/24 Active Nitroglycerin 0.3 MG Sublingual Tablet Sublingual (Nitrostat)Indicat ions:Coronary artery disease of akiak artery of akiak heart with stable angina pectoris (HCC) PLACE [...] as of this encounter (statuses as of 07/23/2024) Active Problems Problem Noted Date Diagnosed Date [...] akiak heart with stable angina pectoris 12/08/2020 Assessment [...] Per Lipid Taxonomy. 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 (Household - for ages [...] No 05/02/2019 3:21 PM EDSelin Summers RN * Do you have serious difficulty walking or climbing stairs? (5 years old or older) Answer Date of Assessment Author No 05/02/2019 3:21 PM Selin Park RN * Do you have difficulty dressing or bathing? (5 years old or older) Answer Date of Assessment Author No 05/02/2019 3:21 PM Selin Park, LO * Because of a physical, mental, or [...] encounter Miscellaneous Notes * Telephone Encounter - Krysten Calixto RN - 07/23/2024 9:44 AM EST Images from the original note were not included. [facility] Telephonic Nurse Follow-Up Call [facility] Subprogram: Focused Care Management (3-9 months) Follow Up Call Type: Routine follow up call / Status Check Acute issue requiring follow-up call: Other: Persistent cough, CXR results Objective: 07/18/2024 9:20 AM 07/09/2024 11:55 AM 06/19/2024 11:37 AM 06/10/2024 11:12 AM 05/19/2024 4:14 PM VITALS ACROSS ENCOUNTERS BP 148/70 119/76 110/64 112/62 118/62 Pulse 70 80 80 98 80 Weight 97.3 kg 95.3 kg BMI 35.69 34.95 BMI 35.69 kg/m2 34.95 kg/m2 Remote Patient Monitoring: NONE Oxygen Needs: NO supplemental oxygen needs identified DME Needs: NO DME needs identified Medications: No medication or dose adjustments made during acute episode Subjective: Condition Status: Symptoms resolved and back to baseline Current Concerns: Called patient and spoke with spouse, Enio Reports patient still sleeping, but she has been doing fine, Coughs at times, but not as much as she was a few days ago. Made him aware CXR negative, no acute findings. Advised to call [facility] if any new or returning symptoms, he stated he will let her know Disposition: Issue resolved. All appropriate follow up scheduled. Future Visits Scheduled: Future Appointments-next 60 days Date/Time Provider Specialty Dept Phone 07/23/2024 1:45 PM Princess, Nurse [facility] [phone] 08/11/2024 1:00 PM [facility] [phone] 08/11/2024 1:10 PM [facility] [phone] 08/12/2024 4:00 PM Rosalind Smith RN [facility] [phone] 09/05/2024 9:30 AM (Arrive by 9:15 AM) Kenny Archibald DPM Podiatry [phone] 09/25/2024 11:00 AM Radu Suazo PA-C [facility] [phone] 11/10/2024 11:00 AM (Arrive by 10:45 AM) Natalia Heller PA-C Family Medicine [phone] 02/18/2025 12:00 PM (Arrive by 11:45 AM) Natalia Heller PA-C Family Medicine [phone] Krysten Calixto, LO documented in this encounter Plan of Treatment Upcoming Encounters Date Type Department Care Team (Late st Contact Info) Description 08/11/2024 1:00 PM EST Anticoagulation Pharmacy, [address] [facility] [phone] [place] [address] [address] [facility] [address] 08/11/2024 1:10 PM EST Office Visit Pharmacy, [address] [facility] [place] [address] [place] [address] [address] [facility] [address] 08/12/2024 4:00 PM EST [facility], [facility] [address] [facility] [place] [address] Rosalind Smith RN 132 [facility] [place] [address] 09/05/2024 9:30 AM EST Office Visit Podiatry [address] [place] [phone] Kenny Archibald, DPM [address] [facility] [place] [address] 09/25/2024 11:00 AM EST [facility] [address] [place] [address] Radu Suazo PA-C [address] [place] [address] 11/10/2024 11:00 AM EDT [facility] [place] [phone] Natalia Heller PA-C [address] [place] [address] 02/18/2025 12:00 PM EDT [facility] [address] [place] [phone] Natalia Heller PA-C [address] [place] [address] Scheduled Procedures Name Priority Associated Diagnoses Date/Ti [...] Postponed from 01/18/2022 (Acute Illness) Pneumococcal Vaccine: 65+ Years Completed 01/20/2016, 01/15/2015, [...] D LEVEL ONCE IN A LIFETIME-USE SMARTSET# 19479 Completed 05/09/2024, 06/18/2020, 07/25/2019, Additional history exists [...] this encounter Medical Devices Implanted Type Area Resource Protection Specialist Device Identifier Shelf Expiration Date Model / Serial / Lot Graft Cervical 6x8 [id number] - [id number] Implanted:Qt y: 2 on 08/21/2008 at [place] [facility] [place] Tissue - Human Spine Cervical Lifenet Co [id number] / / Screw Spine 14mm 50-014 - [id number] Implanted:Qt y: 2 on 08/21/2008 at [place] [facility] [place] N/A: Spine Cervical CARSON [employer] CARSON DEPUY 8-50-014 / / Depuy [place] 14 Mm Sd Con Scr Implanted:Qt y: 2 on 08/21/2008 at [place] [facility] [place] N/A: Spine Cervical CARSON [employer] CARSON DEPUY 860-014 / / Description:Depuy skyline 14 mm SD con SCR 34 Mm Plate Implanted:Qt y: 1 on 08/21/2008 at [place] [facility] [place] N/A: Spine Cervical [id number] / / Description:34 mm Depuy plat e 14 Mm Variable Rescue Implanted:Qt y: 2 on 08/21/2008 at [place] [facility] [place] N/A: Spine Cervical [id number] / / Description:14 mm variable r escue Screw 3.5x14 Mntr Fa [id number] - [id number] Implanted:Qt y: 10 on 07/13/2010 at [place] [facility] [place] N/A: Spine Cervical JNJ : ETHICON CARDIOVATIONS [id number] / / Devaughn [id number] - [id number] Implanted:Qt y: 1 on 07/13/2010 at [place] [facility] [place] N/A: Spine Cervical JNJ : ETHICON CARDIOVATIONS [id number] / / Screw Inner Mntr [id number] - [id number] Implanted:Qt y: 8 on 07/13/2010 at [place] [facility] [place] N/A: Spine Cervical JNJ : ETHICON CARDIOVATIONS [id number] / / Nut Outer Xcon [id number] - [id number] Implanted:Qt y: 2 on 07/13/2010 at [place] [facility] [place] N/A: Spine Cervical JNJ : ETHICON CARDIOVATIONS [id number] / / Screw Inner Xcon [id number] - [id number] Implanted:Qt y: 2 on 07/13/2010 at [place] [facility] [place] N/A: Spine Cervical JNJ : ETHICON CARDIOVATIONS [id number] / / Plate 35mm Xcon [id number] - [id number] Implanted:Qt y: 1 on 07/13/2010 at [place] [facility] [place] N/A: Spine Cervical JNJ : ETHICON CARDIOVATIONS [id number] / / documented as of this encounter [...] the patient have Health Care Power of Jv Baseball Coach? No * Full Code Date Activated Date [...] Power of Attor kim? No Care Teams Nursery Laborer Relationship Specialty Start Date End Date Natalia Heller PA-C [address] [facility] [place] [address] PCP - General Physician Vaccinator 01/06/24 documented as of this encounter
--- OUTSIDE RECORDS SUMMARY | 2024-09-05 13:19 | External Medical Summary | Summary of Care ---
Author Name Unknown Organization [facility] Address [address] [place] [address] Phone [phone] Care Team Providers Care Dinkey Motor Operator Name Role Phone Natalia Hellre PA-C Primary Care Provider [phone] Reason for Referral * Evaluate & Treat - Unlimited Visits (Within 30 days (routine)) - Authorized Specialty Diagnoses / Procedures Referred By Roberto gomez Referred To Contact Sleep Medicine / Sleep Disorders Diagnoses Insomnia, unspecified type Alfa Jaramillo MD [address] [address] Phone: tel: fax: Referral ID Status Reason Start Date Expiration Date Visits Requested Visits Authorized [id number] Authorized Specialty Services Required 07/09/2024 2 2 Question Answer Referral Priority Within 30 days (routine) Where should this appointment be scheduled? [facility] SLEEP MED ADULT REFERRAL Insomnia/Parasomnia Reason for Visit * Reason Comments Follow Up 3 month follow up. N o concerns. 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 Active Fluticasone Propionate 50 MCG/ACT Nasal Suspension (Flonase)Indicatio ns:Chronic rhinitis Administer 2 Sprays into each nostril in the morning. 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 310 units in pump. Getting from [employer] PAP Active Aspirin 81 MG Oral Tablet [...] :HTN, goal below 130/80,Coronary artery disease involving muckleshoot coronary artery of muckleshoot heart without angina pectoris TAKE ONE TABLET [...] skin once a week. Sundays. Obtaining from [employer]. 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) PLACE [...] as of this encounter (statuses as of 07/28/2024) Active Problems Problem Noted Date Diagnosed Date [...] artery disease of n ative artery of muckleshoot heart with stable angina pectoris 12/08/2020 Assessment [...] as of this encounter (statuses as of 07/28/2024) Resolved Problems Problem Noted Date Diagnosed Date [...] as of this encounter (statuses as of 07/28/2024) Immunizations Name Administration Dates Next Due COVID-19 [...] Sign Reading Time Taken Comments Blood Pressure 119/76 07/09/2024 11:55 AM EST Pulse 80 07/09/2024 11:55 AM EST Temperature 36.9 C (98.4 F) 07/09/2024 11:[address] Respiratory Rate 16 07/09/2024 11:55 AM EST Oxygen Saturation 96% 07/09/2024 11:55 AM EST Inhaled Oxygen Concentration - - Weight 97.3 kg (214 lb 8 oz) 07/09/2024 11:55 AM EST Height 165.1 cm (5' 5") 07/09/2024 11:55 AM EST Body Mass Index 35.69 07/09/2024 11:55 AM EST documented in this encounter Functional [...] Assessment Author No 05/02/2019 3:21 PM Selin Pakr RN * Do you have difficulty dressing [...] documented in this encounter Progress Notes * Alfa Jaramillo MD - 07/28/2024 7:18 PM EST Subjective: Graciela Mobley is a 74 year old female here today for Chief Complaint Patient presents with Follow Up 3 month follow up. No concerns. Patient presents for routine follow-up. Can see last note for details. I believe she is having issues with gastroparesis. We discussed this at length at the last visit. She is aware of testing that would be available to make the diagnosis. We reviewed dietary changes that may help. She is struggling with insomnia. This has been chronic. She is interested in seeing Sleep Medicine. Reports being sta ble on current medications. Admits to being inactive. Past Medical History: Diagnosis Date Asthma with COPD (chronic obstructive pulmonary disease) (HCC) Atrial fibrillation (HCC) Benign neoplasm of colon 03/16/2009 adenomatous polyp--repeat 6 months Benign neoplasm of colon 12/09/2009 adenomatous polyps repeat 6 months Benign neoplasm of colon 08/08/2011 Adenomatous polyp Breast cancer (HCC) 2014 Left breast cancer- invasive ductal carcinoma Carpal tunnel syndrome 10/11/2009 Cervical spinal stenosis 08/21/2008 Coronary artery disease DM type 2, goal A1c below 7 1989 Dyslipidemia, goal LDL below 100 07/15/2009 Per Lipid Taxonomy. 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 Major depressive disorder, [...] performed by Buffy Castro MD at OR [facility] AMPUTATION OF TOE Right 05/02/2019 AMPUTATION TOE METATARSOPHALANGEAL JOINT performed by Kenny Archibald DPM at OR [facility] ARTHROPLASTY KNEE TOTAL Right 05/2016 Dr Reynoso BX LYMPH NODE DEEP AXIL Left 04/07/2015 BIOPSY LYMPH NODE DEEP AXILLARY OPEN performed by Buffy Castro MD at OR [facility] CARPAL TUNNEL SURGERY 10/15/2009 NEUROPLASTY MEDIAN NERVE AT CARPAL TUNNEL performed by CHELSI DICKERSON at OR [facility] CARPAL TUNNEL SURGERY 01/07/2010 NEUROPLASTY MEDIAN NERVE AT CARPAL TUNNEL performed by CHELSI DICKERSON at OR [facility] COLONOSCOPY 12/09/2009 adenomatous polyps repeat 6 months [...] performed by Anselmo Sung MD at ENDOSCOPY [facility] COLONOSCOPY, DIAGNOSTIC (RECTUM) 03/21/2018 adenomatous polyp, diverticulosis, repeat 2 yrs/COLONOSCOPY FLEXIBLE PROXIMAL DIAGNOSTIC performed by Anselmo Sung MD at ENDOSCOPY [facility] COLONOSCOPY, DIAGNOSTIC (RECTUM) 01/15/2014 COLONOSCOPY FLEXIBLE PROXIMAL DIAGNOSTIC performed by Anselmo Sung MD at ENDOSCOPY [facility] COLONOSCOPY, DIAGNOSTIC (RECTUM) 11/16/2020 Hemorrhoids, diverticulosis sigmoid colon, multi polyps / biopsy benign adenomatous polyps / 1 yearrecall / COLONOSCOPY FLEXIBLE PROXIMAL DIAGNOSTIC performed by Anselmo Sung MD at ENDOSCOPY [facility] COLONOSCOPY, DIAGNOSTIC (RECTUM) 09/18/2023 multiple small and large mouthed diverticula/biopsies show adenomatous polyps/recall 10 years/COLONOSCOPY FLEXIBLE PROXIMAL DIAGNOSTIC performed by Anselmo Sung MD at ENDOSCOPY [facility] COLONOSCOPY/REMOVE LESION 03/16/2009 repeat 6 months CORONARY ANGIOGRAPHY W/LEFT HEART CATH 11/12/2023 CORONARY ANGIOGRAPHY W/LEFT HEART CATH performed by Huey Barrera MD at CARDIAC LABS [facility] DILATION AND CURETTAGE (D&C) 1996 D&C ENDO DECOMPRESS SPINAL CORD W/LAMINOTOMY, CERVICAL 07/13/2010 LAMINECTOMY DECOMPRESSION SPINAL CORD POSTERIOR CERVICAL performed by CHELSI DICKERSON at OR [facility] IDENTIFY SENTINEL NODE, RADIOACTIVE TRACER Left 04/07/2015 INJECTION PROCEDURE FOR IDENTIFICATION SENTINEL NODE performed by Buffy Castro MD at [facility] KNEE ARTHROSCOPY, DIAGNOSTIC 12/2012 Left knee - [...] performed by Buffy Castro MD at OR [facility] NECK SPINE FUSION (CERV, BELOW C2) 08/21/2008 ARTHRODESIS SPINE ANTERIOR CERVICAL performed by CHELSI DICKERSON at OR [facility] NECK SPINE FUSION (CERV, BELOW C2) 07/13/2010 ARTHRODESIS SPINE POSTERIOR CERVICAL performed by CHELSI DICKERSON at OR [facility] RADIATION THERAPY MANAGEMENT Left 07/10/2015 REMOVE NECK SPINE LAMINA, 1-2 SEGS 07/13/2010 LAMINECTOMY POSTERIOR CERVICAL ONE OR TWO VERTEBRAL SEGMENTS performed by CHELSI DICKERSON at OR [facility] SENTINEL LYMPH NODE BIOPSY PERFORMED Left 04/07/2015 SPINE SEG FIX, POST, 3-6 SEG, INSERT 07/13/2010 POSTERIOR SPINE SEGMENTAL INSTRUMENTATION 3 TO 6 PSF performed by CHELSI DICKERSON at OR [facility] Review of patient's allergies indicates: Allergen Reactions Alendronate Sodium Burning sensation and difficulty breathing Proton Pump Inhibitors Hives nexium Current Outpatient Medications Medication Sig Dispense Refill Multiple Vitamin (DAILY VALUE MULTIVITAMIN) Tablet Take 1 Tablet by mouth in the morning. Fluticasone Propionate 50 MCG/ACT Nasal Suspension (Flonase) Administer 2 Sprays into each nostril in the morning. 16 g 1 Warfarin Sodium 5 MG Oral Tablet (Coumadin) TAKE ONE TABLET TO ONE AND ONE-HALF TABLET BY MOUTH EVERY DAY DIRECTED BY [facility] 135 Tablet 3 Accu-Chek Guide In Vitro Strip (Glucose Blood) Use to test blood glucose 4 times daily. E11.9 400 Strip 3 Accu-Chek Guide Me w/Device Kit Use as directed. Accu-Chek Softclix Lancets Use to test blood glucose 4 times daily. DX: E11.9 400 Each 3 Rosuvastatin Calcium 20 MG Oral Tablet (Crestor) Take 1 Tablet by mouth in the morning. 90 Tablet 3 Insulin Aspart 100 UNIT/ML Injection Solution (NovoLOG) Inject under the skin. 310 units in pump. Getting from [employer] PAP Aspirin 81 MG Oral Tablet Delayed Release Take 1 Tablet by mouth in the morning. Furosemide 20 MG Oral Tablet (Lasix) Take 1 Tablet by mouth once a day on Sunday, Sunday, and Sunday only. 45 Tablet 3 Potassium Chloride ER 10 MEQ Oral Capsule Extended Release Take 1 Capsule by mouth once a day on Sunday, Sunday, and Sunday only. 45 Capsule 3 Metoprolol Succinate ER 50 MG Oral Tablet Extended Release 24 Hour (toPROL XL) TAKE ONE TABLET BY MOUTH TWICE A DAY 180 Tablet 3 Isosorbide Mononitrate ER 60 MG Oral Tablet Extended Release 24 Hour (Imdur) TAKE ONE TABLET BY MOUTH EVERY MORNING 90 Tablet 3 metFORMIN HCl 1000 MG Oral Tablet (Glucophage) TAKE ONE TABLET BY MOUTH TWICE A DAY WITH FOOD 200 Tablet 3 Vitamin B12 500 MCG Oral Tablet Take by mouth daily. Nitroglycerin 0.3 MG Sublingual Tablet Sublingual (Nitrostat) PLACE 1 TABLET UNDER THE TONGUE EVERY5 MINUTES UP TO 3 DOSES NEEDED FOR CHEST PAIN. IF NO RELIEF CALL 911 OR GO TO ER 25 Tablet 11 Sertraline HCl 50 MG Oral Tablet (Zoloft) TAKE 1 AND 1/2 TABLETS BY MOUTH AT BEDTIME 135 Tablet 1 Pregabalin 150 MG Oral Capsule (Lyrica) TAKE ONE CAPSULE BY MOUTH TWICE A DAY 180 Capsule 1 Mirtazapine 30 MG Oral Tablet (Remeron) Take 1 Tablet by mouth at bedtime. (Patient taking differently: Take 0.5 Tablets by mouth at bedtime.) 30 Tablet 0 Famotidine 40 MG Oral Tablet (Pepcid) Take 1 Tablet by mouth in the morning. 30 Tablet 1 Albuterol Sulfate HFA 108 (90 Base) MCG/ACT Inhalation Aerosol Solution Inhale 2 puffs by mouth 4 times daily 20.1 g 2 Ozempic (2 MG/DOSE) 8 MG/3ML Subcutaneous Solution Pen-injector (Semaglutide (2 MG/DOSE)) Inject 2 mg under the skin once a week. Sundays. Obtaining from [employer]. -- ON HOLD per MTM as of 06/11/24 (Patient not taking: Reported on 07/09/2024) Zoster Vac Recomb Adjuvanted 50 MCG/0.5ML Intramuscular Suspension Reconstituted (Shingrix) Inject into a large muscle (Patient not taking: Reported on 07/09/2024) 0.5 mL 0 No current facility-administered medications for this visit. 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 Most of the visit was spent discussing diet and gastroparesis. Patient will let me know if she wishes to proceed with any further workup or specialist referral. Follow-up: Return in about 4 months (around 11/07/2024). | Check-out note: Sleep med eval Keep appt in November with Arnulfo and get something in or around February with Arnulfo or I 32 min with pt and chart review Alfa Jaramillo MD documented in this encounter Nursing Notes * Marilin Perkins MED ASSIST - 07/09/2024 12:00 PM EST The patient has been properly identified by confirmation of name and date of . Chief Complaint Patient presents with Follow Up 3 month follow up. No concerns. documented in this encounter Plan of Treatment Upcoming Encounters Date Type Department Care Team (Late st Contact Info) Description 08/11/2024 1:00 PM EST Anticoagulation Pharmacy, [address] [phone] [facility] [address] [place] [address] 08/11/2024 1:10 PM EST Office Visit Pharmacy, [address] [place] [phone] [address] [address] 08/12/2024 4:00 PM EST Home Visit [facility] [address] [place] [address] Rosalind Smith RN [address] [place] [address] 09/05/2024 9:30 AM EST Office Visit Podiatry [address] [place] [phone] Kenny Archibald, [address] [address] 09/25/2024 11:00 AM EST Home Visit [facility] [address] [place] [address] Radu Suazo PA-C [address] [place] [address] 11/10/2024 11:00 AM EDT Office Visit Family [facility], [address] [place] [phone] Natalia Heller PA-C [address] [place] [phone] 02/18/2025 12:00 PM EDT [facility] [address] [place] [phone] Natalia Heller PA-C [address] [place] [address] Scheduled Procedures Name Priority Associated Diagnoses Date/Ti me COLONOSCOPY FLEXIBLE PROXIMA L DIAGNOSTIC Recall Screening for colon cancer Scheduled Referrals Name Type Priority Associated Diagnoses Orde r Schedule SLEEP MEDICINE REFERRAL OP Referral Within 30 days (routine) Insomnia, unspecified type Ordered: 07/09/2024 Health Maintenance Due Date Last Done Comments [...] D LEVEL ONCE IN A LIFETIME-USE SMARTSET# [id number] Completed 05/09/2024, 06/18/2020, 07/25/2019, Additional history exists [...] encounter Medical Devices Implanted Type Area Data Manager Device Identifier Shelf Expiration Date Model / Serial / Lot Graft Cervical 6x8 [id number] - [id number] Implanted:Qt y: 2 on 08/21/2008 at OR [facility] Tissue - Human Spine Cervical [employer] [id number] / / Screw Spine 14mm 1867-50-014 - [id number] Implanted:Qt y: 2 on 08/21/2008 at OR [facility] N/A: Spine Cervical [employer] DEPUY [id number] / / Depuy [place] 14 Mm Sd Con Scr Implanted:Qt y: 2 on 08/21/2008 at OR [facility] N/A: Spine Cervical [employer]Y 60014 / / Description:Depuy skyline 14 mm SD con SCR 34 Mm Plate Implanted:Qt y: 1 on 08/21/2008 at OR [facility] N/A: Spine Cervical 1867-09- / / Description:34 mm Depuy plat e 14 Mm Variable Rescue Implanted:Qt y: 2 on 08/21/2008 at OR [facility] N/A: Spine Cervical [id number] / / Description:14 mm variable r escue Screw 3.5x14 Mntr Fa [id number] - [id number] Implanted:Qt y: 10 on 07/13/2010 at OR [facility] N/A: Spine Cervical JNJ : [employer] [id number] / / Devaughn 3.2a539ri [id number] - [id number] Implanted:Qt y: 1 on 07/13/2010 at OR [facility] N/A: Spine Cervical JNJ : [employer] [id number] / / Screw Inner Mntr [id number] - [id number] Implanted:Qt y: 8 on 07/13/2010 at OR [facility] N/A: Spine Cervical JNJ : [employer] [id number] / / Nut Outer Xcon [id number] - [id number] Implanted:Qt y: 2 on 07/13/2010 at OR [facility] N/A: Spine Cervical JNJ : [employer] [id number] / / Screw Inner Xcon [id number] - [id number] Implanted:Qt y: 2 on 07/13/2010 at OR [facility] N/A: Spine Cervical JNJ : [employer] [id number] / / Plate 35mm Xcon [id number] - [id number] Implanted:Qt y: 1 on 07/13/2010 at OR [facility] N/A: Spine Cervical JNJ : [employer] [id number] / / documented as of this encounter Visit Diagnoses Diagnosis COPD, moderate (HCC)- Primary Chronic airway obstruction, not elsewhere classified Chronic atrial fibrillation (HCC) Atrial fibrillation 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) DM (diabetes mellitus) type II, controlled, with peripheral vascular disorder (HCC) Advanced care planning/counseling discussion Other specified counseling Insomnia, unspecified type- Primary Diabetic polyneuropathy associated with type 2 diabetes mellitus (HCC) COPD, moderate (HCC) Chronic airway obstruction, not elsewhere classified Atrial fibrillation with rapid ventricular response (HCC) Atrial fibrillation 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 No * Full Code Date Activated Date [...] Power of Attor kim? No Care Teams Dinkey Motor Operator Relationship Specialty Start Date End Date Natalia Heller PA-C PCP - General Physician Ski Lift Attendant 01/06/24 documented as of this encounter
--- OUTSIDE RECORDS SUMMARY | 2024-09-05 13:19 | External Medical Summary | Summary of Care ---
Author Name Unknown Organization [facility] Address [address] [facility] [place] [address] Phone [phone] Care Team Providers Care Outdoor Adventure Leader Name Role Phone Natalia Heller PA-C Primary Care Provider [phone] Encounter Details Date Type Department Care Team (Late st Contact Info) Description 08/12/2024 4:00 PM EST [facility], [facility] [address] [place] [address] Rosalind Smith, RN [address] [place] [address] Allergies Active Allergy Reactions Criticality Noted Date Comments Alendronate Sodium 06/24/2012 Burning sensation and difficulty breathing Proton Pump Inhibitors Hives 02/20/2002 nexium documented as of this encounter (statuses as of 08/12/2024) Medications Multiple Vitamin (DAILY VALUE MULTIVITAMIN) Tablet [...] long-term current use of insulin ([facility]),DM (diabetes mellitus) type II, controlled, with peripheral vascular disorder ([facility]) Use to test blood glucose 4 times daily. E11.9 400 Strip 3 03/19/2024 12:17 PM EDT 10/04/19 24 Active Accu-Chek Guide Me w/Device KitIndications:Typ e 2 diabetes mellitus with foot ulcer, with long-term current use of insulin ([facility]),DM (diabetes mellitus) type II, controlled, with peripheral vascular disorder ([facility]) Use as directed. 10/04/19 24 Active Accu-Chek Softclix LancetsIndications :Type 2 diabetes mellitus with foot ulcer, with long-term current use of insulin ([facility]),DM (diabetes mellitus) type II, controlled, with peripheral vascular disorder ([facility]) Use to test blood glucose 4 [...] :HTN, goal below 130/80,Coronary artery disease involving [place] coronary artery of [place] heart without angina pectoris TAKE ONE TABLET [...] Tablet Sublingual (Nitrostat)Indicat ions:Coronary artery disease of [place] artery of [place] heart with stable angina pectoris (HCC) PLACE [...] 1 Tablet by mouth at bedtime. Active documented as of this encounter (statuses as of 08/12/2024) Active Problems Problem Noted Date Diagnosed Date [...] artery disease of n ative artery of [place] heart with stable angina pectoris 12/08/2020 Assessment [...] as of this encounter (statuses as of 08/12/2024) Resolved Problems Problem Noted Date Diagnosed Date [...] as of this encounter (statuses as of 08/12/2024) Immunizations Name Administration Dates Next Due COVID-19 [...] Sign Reading Time Taken Comments Blood Pressure 124/70 08/12/2024 3:24 PM EST Pulse 70 08/12/2024 3:24 PM EST Temperature 35.9 C (96.6 F) 08/12/2024 3:24 PM ES T Respiratory Rate 18 08/12/2024 3:24 PM EST Oxygen Saturation 98% 08/12/2024 3:24 PM EST Inhaled Oxygen Concentration - - Weight - [...] Selin Phelps RN documented in this encounter Progress Notes * Rosalind Smith RN - 08/12/2024 3:46 PM EST Current Concerns: Pt seen for return RNCM visit She reports she is feeling better since last home visit, not coughing as much She does feel her SOB is slowly getting worse 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 Cardiovascular: Rate and Rhythm: Normal rate and regular rhythm. Pulses: Normal pulses. Heart sounds: Normal heart sounds. Pulmonary: Effort: Pulmonary effort is normal. Breath sounds: Normal breath sounds. Abdominal: Palpations: Abdomen is soft. Skin: General: Skin is warm and dry. Neurological: Mental Status: She is alert and oriented to person, place, and time. Review of Systems: Review of Systems Constitutional: Negative. HENT: Negative. Eyes: Negative. Respiratory: Positive for shortness of breath. Cardiovascular: Negative. Gastrointestinal: Negative. Genitourinary: Negative. Musculoskeletal: Positive for arthralgias and gait problem. Skin: Negative. Neurological: Positive for light-headedness ("occasionally if move too fast"). Psychiatric/Behavioral: Negative. Care Plan Goal Progress: Patient will maintain management & treatment regimen. (Progressing) Start: 05/19/24 Expected End: 09/04/24 GS - Patient/caregiver will verbalize an understanding of diagnosis, treatment and self management of chronic obstructive pulmonary disease (COPD) (Progressing) Start: 05/19/24 Expected End: 09/05/24 Patient will maintain adequate nutritional intake. (Progressing) Start: 05/19/24 Expected End: 09/04/24 Patient will remain free from infection. (Progressing) Start: 05/19/24 Expected End: 09/04/24 Orders Placed: No orders of the defined types were placed in this encounter. Medications Given: Care Gaps: Care Gaps Care gaps closed this contact: Education;Medications;Plan of Care (POC) (08/12/241531) Type of education: Clinical/disease (08/12/241531) Type of medication care gap: Medication adherence (08/12/241531) Type of plan of care (POC) care gap: Adjustment of plan of care (POC) and/or Integrated Care Plan (ICP);Education and review of exacerbation plan (08/12/241531) documented in this encounter Plan of Treatment Upcoming Encounters Date Type Department Care Team ([facility] Contact Info) Description 09/05/2024 9:10 AM EST Laboratory [facility], [address] [phone] [address] 09/05/2024 9:30 AM EST Office Visit Podiatry [address] [place] [phone] Kenny Archibald DPM [facility] [place] [address] 09/05/2024 5:30 PM EST Anticoagulation Pharmacy, [address] [facility] [place] [phone] [facility] [address] [facility], [place] [address] 09/22/2024 10:00 AM EST Anticoagulation Pharmacy, [place] [place], [place] [phone] [facility] [address] [facility], [place] [address] 09/22/2024 10:10 AM EST Office Visit Pharmacy, [address] [place], [place] [phone] [facility] [address] [facility], [place] [address] 09/25/2024 11:00 AM EST [facility], [facility] [address] [place] [address] Radu Suazo PA-C [address] [place] [address] 10/13/2024 10:00 AM EDT [facility] Visit [facility], [facility] [address] [place] [address] Rosalind Smith, RN [address] [place] [address] 11/10/2024 11:00 AM EDT Office Visit Family Practice, [address] [place] [phone] Natalia Heller PALoiC [address] [place] [address] 02/18/2025 12:00 PM EDT Office Visit Family [facility], [address] [place] [phone] Natalia Heller PA-C [address] [place] [address] Scheduled Procedures Name Priority Associated Diagnoses Date/Ti [...] D LEVEL ONCE IN A LIFETIME-USE SMARTSET# 13573 Completed 05/09/2024, 06/18/2020, 07/25/2019, Additional history exists [...] this encounter Medical Devices Implanted Type Area Escalation Engineer Device Identifier Shelf Expiration Date Model / Serial / Lot Graft Cervical 6x8 [id number] - [id number] Implanted:Qt y: 2 on 08/21/2008 at [place] [facility] - Human Spine Cervical [employer] [id number] / / Screw Spine 14mm - - [id number] Implanted:Qt y: 2 on 08/21/2008 at [place] [facility] N/A: Spine Cervical [employer]SON [employer] CAR[employer] DEPUY 50-014 / / Depuy [place] 14 Mm Sd Con Scr Implanted:Qt y: [facility] [place] [facility]/A: Spine Cervical [id number] / / Description:14 mm variable r escue Screw 3.5x14 Mntr Fa [id number] - [id number] Implanted:Qt y: 10 on 07/13/2010 at [place] [facility] N/A: Spine Cervical JN[place] : [employer] [id number] / / Devaughn [id number] - [id number] Implanted:Qt y: 1 on 07/13/2010 at [place] [facility] N/A: Spine Cervical JNJ : ETH[employer]ON [employer]ATIONS [id number] / / Screw Inner Mntr [id number] - [id number] Implanted:Qt y: 8 on 07/13/2010 at [place] [facility] N/A: Spine Cervical JNJ : [employer] [id number] / / Nut Outer Xcon [id number] - [id number] Implanted:Qt y: 2 on 07/13/2010 at [place] [facility] N/A: Spine Cervical JNJ : [employer] [id number] / / Screw Inner Xcon [id number] - [id number] Implanted:Qt y: 2 on 07/13/2010 at [place] [facility] N/A: Spine Cervical JNJ : [employer] [id number] / / Plate 35mm Xcon [id number] - [id number] Implanted:Qt y: 1 on 07/13/2010 at [place] [facility] N/A: Spine Cervical JNJ : [employer] [id number] / / documented as of this encounter [...] the patient have Health Care Power of Accreditation Manager? No * Full Code Date Activated Date [...] Power of Attor kim? No Care Teams Outdoor Adventure Leader Relationship Specialty Start Date End Date Natalia Heller PA-C PCP - General Physician District Extension Service Agent 01/06/24 documented as of this encounter
--- OUTSIDE RECORDS SUMMARY | 2024-09-05 13:20 | External Medical Summary | Summary of Care ---
Author Name Unknown Organization [facility] Address [address] [facility] [place] [address] Phone [phone] Care Team Providers Care Elevated Work Platform Operator Name Role Phone Natalia Heller PA-C Primary Care Provider [phone] Reason for Visit * Reason Onset Date Comments [facility]: Maintenance 07/20/2024 Encounter Details Date Type Department Care Team (Late st Contact Info) Description 07/20/2024 11:30 AM EST Scheduled Telephone [facility] [address] [facility] [place] [address] [facility], Nurse [facility] [address] [facility] [place] [address] Allergies Active Allergy Reactions Criticality Noted Date Comments Alendronate Sodium 06/24/2012 Burning sensation and difficulty breathing Proton Pump Inhibitors Hives 02/20/2002 nexium documented as of this encounter (statuses as of 07/20/2024) Medications Multiple Vitamin (DAILY VALUE MULTIVITAMIN) Tablet Take 1 Tablet by mouth in the morning. Active Fluticasone Propionate 50 MCG/ACT Nasal Suspension (Flonase)Indicatio ns:Chronic rhinitis Administer 2 Sprays into each nostril in the morning. 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 E11.9 400 Strip 3 03/19/2024 12:17 PM EDT 10/04/19 24 Active Accu-Chek Guide Me w/Device KitIndications:Typ e 2 diabetes mellitus with foot ulcer, with long-term current use of insulin ([facility]),DM (diabetes mellitus) type II, controlled, with peripheral vascular disorder ([facility]) Use as directed. 10/04/19 24 Active Accu-Chek Softclix LancetsIndications :Type 2 diabetes mellitus with foot ulcer, with long-term current use of insulin ([facility]),DM (diabetes mellitus) type II, controlled, with peripheral vascular disorder ([facility]) Use to test blood glucose [...] :HTN, goal below 130/80,Coronary artery disease involving [place] coronary artery of [place] heart without angina pectoris TAKE ONE TABLET [...] skin once a week. Sundays. Obtaining from [employer]. -- ON HOLD per [place] as of 06/11/24 Active Nitroglycerin 0.3 MG Sublingual Tablet Sublingual (Nitrostat)Indicat ions:Coronary artery disease of [place] artery of [place] heart with stable angina pectoris (HCC) PLACE [...] as of this encounter (statuses as of 07/20/2024) Active Problems Problem Noted Date Diagnosed Date [...] artery disease of n ative artery of [place] heart with stable angina pectoris 12/08/2020 Assessment [...] Lipid Taxonomy. 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 (Household - for [...] encounter Miscellaneous Notes * Telephone Encounter - Yenny Noel RN - 07/20/2024 10:32 AM EST Images from the original note were not included. TOÑA Boyer/aRdu [facility] F/u call --persistent cough/CXR ordered Contacted pt. Pt is slurring speech and states her bsg is low. Requests RN speak with spouse. Spouse states pt is having another low bsg Spouse just woke her up prior to Rn call Bsg 54 Spouse made her a bowl of oatmeal, is having her eat a cookie and banana. Spouse is not aware of patient taking any medications yet this morning. Pt did not get CXR completed Spouse does not know if anyone has been in contact with pt. States he has not noticed her coughing much. Will call back to f/u on bsg after pt eats. Contacted Mobile Physician X-ray Orders have not been received. Registered patient over the phone and provided orders. They will contact patient. Re-faxed orders to [facility]--[phone] 12:06 PM--Pc to pt for follow up. Bsg 164 now. Feeling better. States she last ate around 6 pm last evening--vegetable soup, banana, grapes Bsg was high last night -low 300's--states she had over done it with intake yesterday States insulin was just adjusted because bsg has been persistently elevated around the 200's per pt Pt states she plans to call [facility] DM tomorrow to notify of low bsg. Has not coughed much today yet and yesterday was "slight" Continues to have mucus, unable to describe mucus Denies new symptoms of increasing sob, wheezing, fever, chills, sweats. Advised mobile x-ray will be in contact with pt to set up time for x-ray and requested she answer all incoming calls to ensure she does not miss their phone call. Nurse phone f/u in 1 day documented in this encounter Plan of Treatment Upcoming Encounters Date Type Department Care Team ([facility] Contact Info) Description 07/21/2024 10:30 AM EST Scheduled Telephone ising at [place], [facility] [address] [place] [address] Coordinator, [facility] [address] [place] [address] 08/11/2024 1:00 PM EST [facility] [phone] [facility] [address] [place] [address] 08/11/2024 1:10 PM EST [facility] [address] [facility] [phone] [place] [address] [place] [address] 08/12/2024 4:00 PM EST [facility] Visit [facility] [address] [place] [address] Rosalind Smith RN [address] [place] [address] 09/05/2024 9:30 AM EST Office Visit Podiatry [address] [place] [address] Kenny Archibald, [address] [address] 09/25/2024 11:00 AM EST Home Visit [facility] at [place], [facility] [address] [place] [address] Radu Suazo PA-C [address] [place] [address] 11/10/2024 11:00 AM EDT [facility] [address] [place] [phone] Ntaalia Heller PA-C [address] [place] [address] 02/18/2025 12:00 PM EDT [facility] [address] [place] [phone] Natalia Heller PA-C [address] [place] [address] Scheduled Procedures Name Priority Associated Diagnoses Date/Ti [...] D LEVEL ONCE IN A LIFETIME-USE SMARTSET# 27399 Completed 05/09/2024, 06/18/2020, 07/25/2019, Additional history exists [...] this encounter Medical Devices Implanted Type Area Tile Erector Device Identifier Shelf Expiration Date Model / Serial / Lot Graft Cervical 6x8 [id number] - [id number] Implanted:Qt y: 2 on 08/21/2008 at [place] [facility] [place] Tissue - Human Spine Cervical [employer] [id number] / / Screw Spine 14mm [id number] - [id number] Implanted:Qt y: 2 on 08/21/2008 at [place] [facility] N/A: Spine Cervical CARSON [employer] CAR[employer] DEPUY 50-014 / / Depuy [place] 14 Mm Sd Con Scr Implanted:Qt y: 2 on 08/21/2008 at [place] [facility] N/A: Spine Cervical [employer] DEPUY [id number] / / Description:Depuy [place] 14 mm SD con SCR 34 Mm Plate Implanted:Qt y: 1 on 08/21/2008 at [place] [facility] N/A: Spine Cervical / / Description:34 mm Depuy plat e 14 Mm Variable Rescue Implanted:Qt y: 2 on 08/21/2008 at [place] [facility] [place] N/A: Spine Cervical / / Description:14 mm variable r escue Screw 3.5x14 Mntr Fa [id number] - [id number] Implanted:Qt y: 10 on 07/13/2010 at [place] [facility] N/A: Spine Cervical JNJ : ETH[employer]ON C[employer]ATIONS [id number] / / Devaughn [id number] - [id number] Implanted:Qt y: 1 on 07/13/2010 at [place] [facility] N/A: Spine Cervical JNJ : ETH[employer]ON [employer] [id number] / / Screw Inner Mntr [id number] - [id number] Implanted:Qt y: 8 on 07/13/2010 at [place] [facility] N/A: Spine Cervical JNJ : ETH[employer]ON [employer] [id number] / / Nut Outer Xcon [id number] - [id number] Implanted:Qt y: 2 on 07/13/2010 at [place] [facility] N/A: Spine Cervical JNJ : [employer] [id number] / / Screw Inner Xcon [id number] - [id number] Implanted:Qt y: 2 on 07/13/2010 at [place] [facility] N/A: Spine Cervical JNJ : [employer]ON [employer] [id number] / / Plate 35mm Xcon [id number] - [id number] Implanted:Qt y: 1 on 07/13/2010 at [place] [facility] N/A: Spine Cervical JNMaddy : ETHIATIF CARDIOVATIONS [id number] / / documented as of this encounter [...] the patient have Health Care Power of Transportation Engineering Technician? No * Full Code Date Activated [...] Power of Attor kim? No Care Teams Elevated Work Platform Operator Relationship Specialty Start Date End Date Natalia Heller PA-C [address] [facility] [place] [address] PCP - General Physician Counter Manager 01/06/24 documented as of this encounter
--- OUTSIDE RECORDS SUMMARY | 2024-09-05 13:20 | External Medical Summary | Summary of Care ---
Author Name Unknown Organization [facility] Address [address] [place] [address] Phone [phone] Care Team Providers Care Container Finishing Inspector Name Role Phone Natalia Heller PA-C Primary Care Provider [phone] Reason for Visit * Reason Onset Date Comments [facility]: Maintenance 07/21/2024 Encounter Details Date Type Department Care Team (Late st Contact Info) Description 07/21/2024 10:30 AM EST Scheduled Telephone [facility], [facility] [address] [facility] [place] [address] Coordinator, [facility] [address] [facility] [place] [address] Allergies Active Allergy Reactions Criticality Noted Date Comments Alendronate Sodium 06/24/2012 Burning sensation and difficulty breathing Proton Pump Inhibitors Hives 02/20/2002 nexium documented as of this encounter (statuses as of 07/21/2024) Medications Multiple Vitamin (DAILY VALUE MULTIVITAMIN) Tablet Take 1 Tablet by mouth in the morning. Active Fluticasone Propionate 50 MCG/ACT Nasal Suspension (Flonase)Indicatio ns:Chronic rhinitis Administer 2 Sprays into each nostril in the morning. 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 E11.9 400 Strip 3 03/19/2024 12:17 PM EDT 10/04/19 24 Active Accu-Chek Guide Me w/Device KitIndications:Typ e 2 diabetes mellitus with foot ulcer, with long-term current use of insulin ([facility]),DM (diabetes mellitus) type II, controlled, with peripheral vascular disorder ([facility]) Use as directed. 10/04/19 24 Active Accu-Chek Softclix LancetsIndications :Type 2 diabetes mellitus with foot ulcer, with long-term current use of insulin ([facility]),DM (diabetes mellitus) type II, controlled, with peripheral vascular disorder ([facility]) Use to test blood glucose 4 times [...] :HTN, goal below 130/80,Coronary artery disease involving [place] coronary artery of [place] heart without angina pectoris TAKE ONE TABLET [...] skin once a week. Sundays. Obtaining from [employer]. -- ON HOLD per [place] as of 06/11/24 Active Nitroglycerin 0.3 MG Sublingual Tablet Sublingual (Nitrostat)Indicat ions:Coronary artery disease of [place] artery of [place] heart with stable angina pectoris (HCC) PLACE [...] as of this encounter (statuses as of 07/21/2024) Active Problems Problem Noted Date Diagnosed Date [...] artery disease of n ative artery of [place] heart with stable angina pectoris 12/08/2020 Assessment [...] Lipid Taxonomy. 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 (Household - for [...] encounter Miscellaneous Notes * Telephone Encounter - Darling Hassan LPN - 07/21/2024 1:22 PM EST [facility] Telephonic Nurse Follow-Up Call [facility] Subprogram: Focused Care Management (3-9 months) Follow Up Call Type: Routine follow up call / Status Check Acute issue requiring follow-up call: Other: cough, chest x-ray Objective: 07/18/2024 9:20 AM 07/09/2024 11:55 AM [...] resolved and back to baseline Current Concerns: Call to pt states cough is better. Reports she coughs "once in a blue etienne" Pt is not on O2 Denies SOB Pt states she never heard from anyone about chest xray Review of chart [facility] RN called [facility] and gave verbal order for chest x-ray and faxed order to them yesterday 07/30 Made pt aware I would contact [facility] to check on chest x-ray Call to [facility] spoke with Nupur she stated she had to look in to this order and would call [facility] back [phone] opt#3 F/u call scheduled for tomorrow to see if chest x-ray was completed Disposition: Follow up call scheduled for tomorrow with JOSE Dye Range Operator Future Visits Scheduled: Future Appointments-next 60 days Date/Time Provider Specialty Dept Phone 08/11/2024 1:00 PM Cork[facility] [phone] 08/11/2024 1:10 PM Corky [facility] [phone] 08/12/2024 4:00 PM Rosalind Smith RN [facility] [phone] 09/05/2024 9:30 AM (Arrive by 9:15 AM) Kenny Archibald DPM Podiatry [phone] 09/25/2024 11:00 AM Radu Suazo PA-C [facility] [phone] 11/10/2024 11:00 AM (Arrive by 10:45 AM) Natalia Heller PA-C Family Medicine [phone] 02/18/2025 12:00 PM (Arrive by 11:45 AM) Natalia Heller PA-C Family Medicine [phone] Darling Hassan LPN documented in this encounter Plan of Treatment Upcoming Encounters Date Type Department Care Team (Late st Contact Info) Description 07/22/2024 11:30 AM EST Scheduled Telephone [facility], [address] [place] [address] [facility], Nurse [address] [place] [address] 08/11/2024 1:00 PM EST [address] [place] [phone] Corky [facility] [address] [place] [address] [place] [phone] 08/11/2024 1:10 PM EST Office [address] [place] [phone] Cork[facility] [address] [facility] [address] 08/12/2024 4:00 PM EST Home Visit [facility], [facility] [address] [place] [address] Rosalind Smith, RN [address] [address] 09/05/2024 9:30 AM EST Office Visit Podiatry [address] [place] [phone] Kenny Archibald, [facility] [address] [place] [address] 09/25/2024 11:00 AM EST Home Visit [facility], [facility] [address] [place] [address] Radu Suazo PA-C [address] [place] [address] 11/10/2024 11:00 AM EDT Office Visit [facility] Corky [address] [place] [phone] Natalia Heller PA-C [address] [place] [address] 02/18/2025 12:00 PM EDT Office Visit Corky [address] [place] [phone] Natalia Heller PA-C [address] [place] [address] Scheduled Procedures Name Priority Associated Diagnoses Date/Ti [...] D LEVEL ONCE IN A LIFETIME-USE SMARTSET# 13699 Completed 05/09/2024, 06/18/2020, 07/25/2019, Additional history exists [...] this encounter Medical Devices Implanted Type Area Plating Stripper Device Identifier Shelf Expiration Date Model / Serial / Lot Graft Cervical 6x8 [id number] - [id number] Implanted:Qt y: 2 on 08/21/2008 at [place] [facility] Tissue - Human Spine Cervical [employer] [id number] / / Screw Spine 14mm 8-50-014 - [id number] Implanted:Qt y: 2 on 08/21/2008 at [place] [facility] N/A: Spine Cervical [employer]PU[employer] 8-50-014 / / Depuy [place] 14 Mm Sd Con Scr Implanted:Qt y: 2 on 08/21/2008 at [place] [facility] N/A: Spine Cervical [employer]PUY 860-014 / / Description:Depuy skyline 14 mm SD con SCR 34 Mm Plate Implanted:Qt y: 1 on 08/21/2008 at [place] [facility] N/A: Spine Cervical 034 / / Description:34 mm Depuy plat e 14 Mm Variable Rescue Implanted:Qt y: 2 on 08/21/2008 at [place] [facility] N/A: Spine Cervical 54-014 / / Description:14 mm variable r escue Screw 3.5x14 Mntr Fa [id number] - [id number] Implanted:Qt y: 10 on 07/13/2010 at [place] [facility] N/A: Spine Cervical JNJ : [employer] [id number] / / Devaughn [id number] - [id number] Implanted:Qt y: 1 on 07/13/2010 at [place] [facility] N/A: Spine Cervical JNJ : [employer] [id number] / / Screw Inner Mntr [id number] - [id number] Implanted:Qt y: 8 on 07/13/2010 at [place] [facility] N/A: Spine Cervical JNJ : [employer] [id number] / / Nut Outer Xcon [id number] - [id number] Implanted:Qt y: 2 on 07/13/2010 at [place] [facility] N/A: Spine Cervical JNJ : [employer] [id number] / / Screw Inner Xcon [id number] - [id number] Implanted:Qt y: 2 on 07/13/2010 at [place] [facility] N/A: Spine Cervical JNJ : [employer] [id number] / / Plate 35mm Xcon [id number] - [id number] Implanted:Qt y: 1 on 07/13/2010 at [place] [facility] N/A: Spine Cervical JNJ : [employer] [id number] / / documented as of this encounter [...] the patient have Health Care Power of Legal Manager? No * Full Code Date Activated [...] Power of Attor kim? No Care Teams Container Finishing Inspector Relationship Specialty Start Date End Date Natalia Heller PA-C [address] [facility] [place] [address] PCP - General Physician Criminal Court Judge 01/06/24 documented as of this encounter
--- OUTSIDE RECORDS SUMMARY | 2024-09-05 13:20 | External Medical Summary | Summary of Care ---
Author Name Unknown Organization [facility] Address [address] [facility] [place] [address] Phone [phone] Care Team Providers Care Wireless Technician Name Role Phone Natalia Heller PA-C Primary Care Provider [phone] Reason for Visit * Reason Onset Date Comments [facility]: Maintenance 07/20/2024 Encounter Details Date Type Department Care Team (Late st Contact Info) Description 07/20/2024 11:30 AM EST Scheduled Telephone [facility], [facility] [address] [facility] [place] [address] 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 E11.9 400 Strip 3 03/19/2024 12:17 PM EDT 10/04/19 24 Active Accu-Chek Guide Me w/Device KitIndications:Typ e 2 diabetes mellitus with foot ulcer, with long-term current use of insulin ([facility]),DM (diabetes mellitus) type II, controlled, with peripheral vascular disorder ([facility]) Use as directed. 10/04/19 24 Active Accu-Chek Softclix LancetsIndications :Type 2 diabetes mellitus with foot ulcer, with long-term current use of insulin ([facility]),DM (diabetes mellitus) type II, controlled, with peripheral vascular disorder ([facility]) Use to test blood glucose [...] :HTN, goal below 130/80,Coronary artery disease involving [place] coronary artery of [place] heart without angina pectoris TAKE ONE [...] skin once a week. Sundays. Obtaining from [employer]. -- ON HOLD per [place] as of 06/11/24 Active Nitroglycerin 0.3 MG Sublingual Tablet Sublingual (Nitrostat)Indicat ions: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 (HCC) [...] artery disease of n ative artery of [place] heart with stable angina pectoris 12/08/2020 [...] Lipid Taxonomy. 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 0 [...] 30 Mcg, IM, 12 yrs and above (Endoclear) 05/08/2022 Pneumococcal Conjugate Vacc, 13 Valent (Prevnar) 01/20/2016 Pneumococcal Polysaccharide PPV23 (Pneumovax) 01/15/2015,09/18/2006,06/06/2001 Season Influenza, Quad, PF, Adjuvanted, 65+ Yrs, IM (FLUAD) 06/18/2020 Seasonal Influenza Vac., MDV , IM, 0.5 mL (Fluzone) 06/09/2016,05/22/2014,05/05/2013,04/30,05/22/2011,06/07/2010,07/07/2008 ,05/20/2007,06/07/2006,07/04/2005,07/06,05/26/2002,06/06/2001 Seasonal Influenza Virus Vac cine, Unspecified Formulation 05/08/2019,04/09/2018,06/21/2017 Seasonal Influenza, High Dos e, Trivalent, PF, IM (Fluzone HD) 04/15/2024 Seasonal Influenza, PF, 6 M & above, IM , (FluLaval or Fluzone) 05/08/2019,04/09/2018,06/21/2017 Seasonal Influenza, Quadriva lent Hd (Fluzone Hd) 04/04/2023,05/08/2022 Seasonal Influenza, Quadriva lent, No Preserve, IM 05/20/2015 Seasonal Influenza, Trivalen t, Adjuvanted, 65+ YRS, PF, (Fluad) 05/04/2019(Deferred: Patient Refused) TD - Tetanus/Diptheria (ADULT) [...] No 11/19/2023 Does the household have a [facility] source of income? (Household - for [...] [place], [place] * Do you have difficulty dressing or [...] Telephone Encounter - Shanthi Franks RPh - 07/23/2024 7:52 AM EST Noted by [facility]. Pt recently set up with dexcom. Pt's blood sugars are labile, but her most prominent trend has been high blood sugars, as evidencedby her most recent A1c: Latest Reference Range & Units 05/09/24 09:11 Hemoglobin A1C 4.0 - 5.6 % 11.1 (H) (H): Data is abnormally high Follow up 08/11/24. Shanthi Franks, PharmD, BCACP Clinical Pharmacist Medication Therapy Disease Management 07/23/2024, 7:53 AM * Telephone Encounter - Yenny Noel RN - 07/20/2024 10:32 AM EST Images from the original note were not included. TOÑA Boyer/Radu [facility] Clinic F/u call --persistent cough/CXR ordered Contacted [...] They will contact patient. Re-faxed orders to [facility]--[phone] 12:06 PM--Pc to pt for follow up. Bsg 164 now. Feeling better. States she last ate around 6 pm last evening--vegetable soup, banana, grapes Bsg was high last night -low 300's--states she had over done it with intake yesterday States insulin was just adjusted because bsg has been persistently elevated around the 200's per pt Pt states she plans to call [facility] DM tomorrow to notify of low bsg. [...] Upcoming Encounters Date Type Department Care Team ([facility] st Contact Info) Description 07/23/2024 1:45 PM EST Scheduled Telephone [facility], [facility] 132 [facility] [place] [address] [facility], Nurse [facility] [address] [facility] [place] [address] 08/11/2024 1:00 PM EST Anticoagulation Pharmacy, Corky [address] [place] [phone] Corky [address] [place] [address] 08/11/2024 1:10 PM EST Office Visit Pharmacy, [address] [place] [phone] [place] [address] 08/12/2024 4:00 PM EST Home Visit [facility], [facility] [address] [place] [address] Rosalind Smith RN [address] [address] 09/05/2024 9:30 AM EST Office Visit Podiatry [facility], [address] [place] [phone] Kenny Archibald, [address] [address] 09/25/2024 11:00 AM EST Home Visit [facility], [facility] [address] [place] [address] Radu Suazo PA-C [address] [address] 11/10/2024 11:00 AM EDT Office Visit [facility], [address] [place] [phone] Natalia Heller PA-C [address] [place] [address] 02/18/2025 12:00 PM EDT Office Visit Family Corky [address] [place] [phone] Natalia Heller PA-C [address] [place] [address] Scheduled Procedures Name Priority Associated Diagnoses Date/Ti [...] D LEVEL ONCE IN A LIFETIME-USE SMARTSET# 38470 Completed 05/09/2024, 06/18/2020, 07/25/2019, Additional history exists [...] this encounter Medical Devices Implanted Type Area Field Radio Technician Device Identifier Shelf Expiration Date Model / Serial / Lot Graft Cervical 6x8 [id number] - [id number] Implanted:Qt y: 2 on 08/21/2008 at [place] [facility] [place] Tissue - Human Spine Cervical [employer] [id number] / / Screw Spine 14mm 1867-50-014 - [id number] Implanted:Qt y: 2 on 08/21/2008 at [place] [facility] [place] N/A: Spine Cervical CARSON [employer] CARSON DEPUY 8-50-014 / / Depuy [place] 14 Mm Sd Con Scr Implanted:Qt y: 2 on 08/21/2008 at [place] [facility] [place] N/A: Spine Cervical [employer] CAR[employer] DEPUY 860-014 / / Description:Depuy skyline 14 mm SD con SCR 34 Mm Plate Implanted:Qt y: 1 on 08/21/2008 at [place] [facility] [place] N/A: Spine Cervical 034 / / Description:34 mm Depuy plat e 14 Mm Variable Rescue Implanted:Qt y: 2 on 08/21/2008 at [place] [facility] [place] N/A: Spine Cervical 54-014 / / Description:14 mm variable r escue Screw 3.5x14 Mntr Fa [id number] - [id number] Implanted:Qt y: 10 on 07/13/2010 at [place] [facility] [place] N/A: Spine Cervical JNJ : ETHICON CARDIOVATIONS [id number] / / Devaughn [id number] - [id number] Implanted:Qt y: 1 on 07/13/2010 at [place] [facility] [place] N/A: Spine Cervical JNJ : [employer]ON C[employer]OVATIONS [id number] / / Screw Inner Mntr [id number] - [id number] Implanted:Qt y: 8 on 07/13/2010 at [place] [facility] [place] N/A: Spine Cervical JNJ : ETH[employer]ON CARD[employer]OVATIONS [id number] / / Nut Outer Xcon [id number] - [id number] Implanted:Qt y: 2 on 07/13/2010 at [place] [facility] [place] [place] N/A: Spine Cervical JNJ : ETH[employer]ON C[employer]OVATIONS [id number] / / Screw Inner Xcon [id number] - [id number] Implanted:Qt y: 2 on 07/13/2010 at [place] [facility] [place] [place] N/A: Spine Cervical JNJ : ETH[employer]ON [employer]ATIONS [id number] / / Plate 35mm Xcon [id number] - [id number] Implanted:Qt y: 1 on 07/13/2010 at [place] [facility] N/A: Spine Cervical JNJ : [employer] [id number] / / documented as of this encounter [...] the patient have Health Care Power of Wire Insulator? No * Full Code Date Activated Date [...] Power of Attor kim? No Care Teams Wireless Technician Relationship Specialty Start Date End Date Natalia Heller PA-C [address] [place] [address] PCP - General Physician Mud Mixer 01/06/24 documented as of this encounter
--- OUTSIDE RECORDS SUMMARY | 2024-09-05 13:20 | External Medical Summary | Summary of Care ---
Author Name Unknown Organization [facility] Address [address] [facility] [place] [address] Phone [phone] Care Team Providers Care Grain Merchandiser Name Role Phone Natalia Heller PA-C Primary Care Provider [phone] Reason for Visit * Reason Onset Date Comments [facility]: Maintenance 07/22/2024 Encounter Details Date Type Department Care Team (Late st Contact Info) Description 07/22/2024 11:30 AM EST Scheduled Telephone [facility], [facility] [address] [facility] [place] [address] [facility], Nurse [facility] [address] [facility] [place] [address] Allergies Active Allergy Reactions Criticality Noted Date Comments Alendronate Sodium 06/24/2012 Burning sensation and difficulty breathing Proton Pump Inhibitors Hives 02/20/2002 nexium documented as of this encounter (statuses as of 07/22/2024) Medications Multiple Vitamin (DAILY VALUE MULTIVITAMIN) Tablet Take 1 Tablet by mouth in the morning. Active Fluticasone Propionate 50 MCG/ACT Nasal Suspension (Flonase)Indicatio ns:Chronic rhinitis Administer 2 Sprays into each nostril in the morning. 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 E11.9 400 Strip 3 03/19/2024 12:17 PM EDT 10/04/19 24 Active Accu-Chek Guide Me w/Device KitIndications:Typ e 2 diabetes mellitus with foot ulcer, with long-term current use of insulin ([facility]),DM (diabetes mellitus) type II, controlled, with peripheral vascular disorder ([facility]) Use as directed. 10/04/19 24 Active Accu-Chek Softclix LancetsIndications :Type 2 diabetes mellitus with foot ulcer, with long-term current use of insulin ([facility]),DM (diabetes mellitus) type II, controlled, with peripheral vascular disorder ([facility]) Use to test blood glucose 4 [...] :HTN, goal below 130/80,Coronary artery disease involving crow coronary artery of crow heart without angina pectoris TAKE ONE TABLET [...] skin once a week. Sundays. Obtaining from [employer]. 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 (Household - [...] Author No 05/02/2019 3:21 PM EDT Selin Phelps, RN documented as of this encounter Mental Status * Because of a physical, mental, or emotional condition, do you have serious difficulty concentrating, remembering, or making decisions? (5 years old or older) Answer Entry Date Author No 05/02/2019 3:21 PM EDT Selin Phelps, RN documented in this encounter Miscellaneous Notes * Telephone Encounter - Krysten Calixto RN - 07/22/2024 9:25 AM EST Reviewed chart, do not see CXR results or if in progress Called [facility], spoke with Rom. Confirmed they did receive the order and it has been assigned to a [employer] criminalist technician Will follow up tomorrow morning for results Krysten Calixto RN, BSN manager mediaPrint Developer [phone] option #1 documented in this encounter Plan of Treatment Upcoming Encounters Date Type Department Care Team (Late st Contact Info) Description 07/23/2024 1:45 PM EST Scheduled Telephone [facility], [facility] [address] [facility] [place] [address] [facility], Nurse [facility] [address] [facility] [place] [address] 08/11/2024 1:00 PM EST Anticoagulation Pharmacy, [address] [facility] [phone] [facility] [address] [facility] [address] 08/11/2024 1:10 PM EST Office Visit Pharmacy, [address] [facility] [place] [phone] [facility] [address] [facility] [address] 08/12/2024 4:00 PM EST [facility] Visit [facility], [facility] [address] [place] [address] Rosalind Smith, RN [address] [place] [address] 09/05/2024 9:30 AM EST Office Visit Podiatry [address] [place] [address] Kenny Archibald, [facility] [address] [place] [address] 09/25/2024 11:00 AM EST Home Visit [facility], [facility] [address] [place] [address] Radu Suazo PA-C [address] [place] [address] 11/10/2024 11:00 AM EDT [facility] [place] [phone] Natalia Heller PA-C [address] [place] [address] 02/18/2025 12:00 PM EDT [facility] [place] [phone] Natalia Heller PA-C [address] [place] [address] Scheduled Procedures Name Priority Associated Diagnoses Date/Ti [...] D LEVEL ONCE IN A LIFETIME-USE SMARTSET# 39044 Completed 05/09/2024, 06/18/2020, 07/25/2019, Additional history exists [...] encounter Medical Devices Implanted Type Area Machine Feeder Device Identifier Shelf Expiration Date Model / Serial / Lot Graft Cervical 6x8 [id number] - [id number] Implanted:Qt y: 2 on 08/21/2008 [place] [facility] [place] - Human Spine Cervical [employer] Co [id number] / / Screw Spine 14mm 8-50-014 - [id number] Implanted:Qt y: 2 on 08/21/2008 at [place] [facility] [place] N/A: Spine Cervical [employer] DEPUY 1868-50-014 / / Depuy [place] 14 Mm Sd Con Scr Implanted:Qt y: 2 on 08/21/2008 at [place] [facility] [place] N/A: Spine Cervical [employer]PUY 1868-60-014 / / Description:Depuy skyline 14 mm SD con SCR 34 Mm Plate Implanted:Qt y: 1 on 08/21/2008 at [place] [facility] [place] N/A: Spine Cervical 8-034 / / Description:34 mm Depuy plat e 14 Mm Variable Rescue Implanted:Qt y: 2 on 08/21/2008 at [place] [facility] [place] N/A: Spine Cervical [id number] / / Description:14 mm variable r escue Screw 3.5x14 Mntr Fa [id number] - [id number] Implanted:Qt y: 10 on 07/13/2010 at [place] [facility] [place]/A: Spine Cervical JNJ : ETHICON C[employer]IOVATIONS [id number] / / Devaughn [id number] - [id number] Implanted:Qt y: 1 on 07/13/2010 at [place] [facility] [place]/A: Spine Cervical JNJ : ETH[employer]ON C[employer]IOVATIONS [id number] / / Screw Inner Mntr [id number] - [id number] Implanted:Qt y: 8 on 07/13/2010 at [place] [facility] [place]/A: Spine Cervical JNJ : ETHICON CARDIOVATIONS [id number] / / Nut Outer Xcon [id number] - [id number] Implanted:Qt y: 2 on 07/13/2010 at [place] [facility] [place]/A: Spine Cervical JNJ : ETH[employer]ON CARDIOVATIONS [id number] / / Screw Inner Xcon [id number] - [id number] Implanted:Qt y: 2 on 07/13/2010 at [place] [facility] [place]/A: Spine Cervical JNJ : ETHICON CARDIOVATIONS [id number] / / Plate 35mm Xcon [id number] - [id number] Implanted:Qt y: 1 on 07/13/2010 at [place] [facility] [place]/A: Spine Cervical JNJ : ETH[employer]ON CARDIOVATIONS [id number] / / documented as of this encounter [...] patient have Health Care Power of Customer Experience Consultant? No * Full Code Date Activated Date [...] Power of Attor kim? No Care Teams Grain Merchandiser Relationship Specialty Start Date End Date Natalia Heller PA-C [address] [facility] [place] [address] PCP - General Physician Humanities Teacher 01/06/24 documented as of this encounter
--- OUTSIDE RECORDS SUMMARY | 2024-09-05 13:21 | External Medical Summary | Summary of Care ---
Author Name Unknown Organization [facility] Address [address] [facility] [place] [address] Phone [phone] Care Team Providers Care Brass Pourer Name Role Phone Natalia Heller PA-C Primary Care Provider [phone] Encounter Details Date Type Department Care Team (Late st Contact Info) Description 07/18/2024 8:30 AM EST [facility] Visit [facility], [facility] [address] [place] [address] Rosalind Smith, RN [address] [place] [address] COPD, moderate (HCC)* Allergies Active Allergy Reactions Criticality Noted Date Comments Alendronate Sodium 06/24/2012 Burning sensation and difficulty breathing Proton Pump Inhibitors Hives 02/20/2002 nexium documented as of this encounter (statuses as of 07/18/2024) Medications Multiple Vitamin (DAILY VALUE MULTIVITAMIN) Tablet Take 1 Tablet by mouth in the morning. Active Fluticasone Propionate 50 MCG/ACT Nasal Suspension (Flonase)Indicatio ns:Chronic rhinitis Administer 2 Sprays into each nostril in the morning. 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 E11.9 400 Strip 3 03/19/2024 12:17 PM EDT 10/04/19 24 Active Accu-Chek Guide Me w/Device KitIndications:Typ e 2 diabetes mellitus with foot ulcer, with long-term current use of insulin ([facility]),DM (diabetes mellitus) type II, controlled, with peripheral vascular disorder ([facility]) Use as directed. 10/04/19 24 Active Accu-Chek Softclix LancetsIndications :Type 2 diabetes mellitus with foot ulcer, with long-term current use of insulin ([facility]),DM (diabetes mellitus) type II, controlled, with peripheral vascular disorder ([facility]) Use to test blood glucose [...] :HTN, goal below 130/80,Coronary artery disease involving puyallup coronary artery of p[place]all[place] heart without angina pectoris TAKE ONE TABLET [...] skin once a week. Sundays. Obtaining from [employer]. -- ON HOLD per [place] as of 06/11/24 Active Nitroglycerin 0.3 MG Sublingual Tablet Sublingual (Nitrostat)Indicat ions:Coronary artery disease of puy[place] artery of [place] heart with stable angina pectoris (HCC) PLACE [...] as of this encounter (statuses as of 07/18/2024) Active Problems Problem Noted Date Diagnosed Date [...] artery disease of n ative artery of puyallup heart with stable angina pectoris 12/08/2020 Assessment [...] Taxonomy. 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 0 05/03/2005 documented as of this encounter (statuses as of 07/18/2024) Resolved Problems Problem Noted Date Diagnosed Date [...] as of this encounter (statuses as of 07/18/2024) Immunizations Name Administration Dates Next Due COVID-19 mRNA, LNP-s, No Pre serve, 2-Dose Series (Moderna) 10/13/2020,09/15/2020 COVID-19, mRNA, LNP-s, PF, B ooster, 100mcg/0.5mg (Moderna) 07/20/2021 Covid-19, Mrna, Lnp-s, Pf, B ivalent, 30 Mcg, IM, 12 yrs and above (In Flow) 05/08/2022 Pneumococcal Conjugate Vacc, 13 Valent (Prevnar) [...] Sign Reading Time Taken Comments Blood Pressure 148/70 07/18/2024 9:20 AM EST Pulse 70 07/18/2024 9:20 AM EST Temperature 36.3 C (97.3 F) 07/18/2024 9:20 AM ES T Respiratory Rate 22 07/18/2024 9:20 AM EST Oxygen Saturation 94% 07/18/2024 9:20 AM EST Inhaled Oxygen Concentration - - [...] documented in this encounter Progress Notes * Bar Delacruz MD - 07/18/2024 9:45 AM EST Persistent cough. No wheezing noted on exam. Copd on problem list but only on albuterol prn and no recent PFT DM uncontrolled; defer to PCP, MDMT Recommend: Cxr now Mucinex prn Albuterol prn Pulm med, PFT PCP, MDMT for DM mgmt Bar Delacruz MD, [facility] [place], FAAFP [employer] ([facility]) [facility] on [place] * Rosalind Smith RN - 07/18/2024 8:30 AM EST Current Concerns: Graciela Mobley [id number] Seen by PCP last week - no med changes noted Sleep medicine referral was placed Seen by MTM and did have change to insulin d/t uncontrolled DM- basal rate increased from midnight to noon Ozempic is on hold- this has been on hold d/t nausea Today pt reports she had an episode yesterday of low blood sugar She was away in [place] and started to feel sick, diaphoretic and states she knew her blood sugarwas down but she did not have her meter with her to check She reports she started drinking orange soda right away and then ate a candy bar and started to feel a little better states she still wasn't back to normal so she ate a cheeseburger and frosty on the way homeand then was back to normal When she got home and checked her blood sugar it was 289 Yesterday in am her blood sugar was 149 and she reports she did not eat breakfast BSG this am is 239 Pt reports she still has nausea today which has been ongoing but feels her SOB is worse Has a cough with yellow mucus - states she has had this for past couple months She was on an antibiotic last month for worsening cough with yellow mucus and she reports it got better but when abx was complete seemed to get worse again 97.3-70-22-148/70-94% on RA Lungs sounds are diminished throughout Readings per glucometer: 07/18 - 9:05am - 239 07/17 - 8:21pm - 289 07/17 - 8:54am - 149 07/16 - 5:53pm - 72 07/16 - 4:28pm - 125 07/16 - 1:36pm - 222 07/16 - 8:53am - 122 07/15 - 6:07pm - 148 07/15 - 10:50am - 108 07/14 - 5:14pm - 123 07/14 - 12:27pm - 120 07/14 - 10:22am - 108 07/13 - 12:40pm - 264 12 - 12:53pm - 219 07/10 - 6:31pm - 428 Will forward to [facility] for their review TT to [facility] for recommendations Per Dr. Delacruz, CXR ordered Pt can use Mucinex q 12 hrs for cough PCP or Pulmonary f/u for further recommendations on COPD (only has rescue inhaler for prn use ordered) Physical Exam: Physical Exam Constitutional: Appearance: She is ill-appearing. Cardiovascular: Rate and Rhythm: Normal rate and regular rhythm. Pulses: Normal pulses. Heart sounds: Normal heart sounds. Pulmonary: Comments: Lung sounds diminished throughout Abdominal: General: Bowel sounds are normal. Palpations: Abdomen is soft. Skin: General: Skin is warm and dry. Neurological: Mental Status: She is alert. Review of Systems: Review of Systems Constitutional: Positive for fatigue. HENT: Negative. Respiratory: Positive for cough (yellow mucus) and shortness of breath (above baseline). Cardiovascular: Negative. Gastrointestinal: Positive for nausea. Genitourinary: Negative. Musculoskeletal: Positive for arthralgias and gait problem. Psychiatric/Behavioral: Negative. Care Plan Goal Progress: Orders Placed: Plan XR Chest 2 Views Medications Given: Care Gaps: Care Gaps Care gaps closed this contact: Lab/radiology testing coordinated;Education;Plan of Care (POC);Medications (07/18/241556) Type of education: Clinical/disease (07/18/241556) Type of medication care gap: Medication adherence (07/18/241556) Type of plan of care (POC) care gap: Adjustment of plan of care (POC) and/or Integrated Care Plan (ICP);Education and review of exacerbation plan (07/18/241556) documented in this encounter Plan of Treatment Upcoming Encounters Date Type Department Care Team (Late st Contact Info) Description 07/19/2024 11:45 AM EST Scheduled Telephone [facility], [address] [place] [address] [facility], Nurse [address] [place] [address] 07/20/2024 11:30 AM EST [facility]uled Telephone [facility] [address] [facility] [place] [address] [facility], Nurse [address] [place] [address] 08/11/2024 1:00 PM EST Anticoagulation Pharmacy, [address] [place] [phone] [address] [place] [address] 08/11/2024 1:10 PM EST Office Visit Pharmacy, [address] [place] [phone] [address] [place] [address] 08/12/2024 4:00 PM EST [facility] Visit [facility], [facility] [address] [place] [address] Rosalind Smith RN [address] [place] [address] 09/05/2024 9:30 AM EST Office Visit Podiatry [address] [place] [phone] Kenny Archibald, [address] [address] 09/25/2024 11:00 AM EST [facility] Visit [facility], [facility] [address] [place] [address] Radu Suazo PA-C [address] [place] [address] 11/10/2024 11:00 AM EDT Office Visit Family [facility], [address] [place] [phone] Natalia Heller PA-C [address] [place] [address] 02/18/2025 12:00 PM EDT Office Visit Family [address] [place] [phone] Natalia Heller PA-C [address] [place] [address] Scheduled Orders Name Type Priority Associated Diagnoses Orde r Schedule XR CHEST 2 VIEWS Medical Imaging STAT COPD, moderate (HCC) Ordered: 07/18/2024 Scheduled Procedures Name Priority Associated Diagnoses Date/Ti [...] D LEVEL ONCE IN A LIFETIME-USE SMARTSET# 20720 Completed 05/09/2024, 06/18/2020, 07/25/2019, Additional history exists [...] this encounter Medical Devices Implanted Type Area Granite Countertop Installer Device Identifier Shelf Expiration Date Model / Serial / Lot Graft Cervical 6x8 [id number] - [id number] Implanted:Qt y: 2 on 08/21/2008 [place] [facility] [place] - Human Spine Cervical Lif[employer] Co [id number] / / Screw Spine 14mm 1867-50-014 - [id number] Implanted:Qt y: 2 on 08/21/2008 at [place] [facility] [place]/A: Spine Cervical CARSON [employer] CARSON DEPUY 50-014 / / Depuy [place] 14 Mm Sd Con Scr Implanted:Qt y: 2 on 08/21/2008 [place] [facility] [place]/A: Spine Cervical [employer] CAR[employer] DEPUY 60-014 / / Description:Depuy skyline 14 mm SD con SCR 34 Mm Plate Implanted:Qt y: 1 on 08/21/2008 [place] [facility] [place]/A: Spine Cervical / / Description:34 mm Depuy plat e 14 Mm Variable Rescue Implanted:Qt y: 2 on 08/21/2008 at [place] [facility] [place]/A: Spine Cervical [id number] / / Description:14 mm variable r escue Screw 3.5x14 Mntr Fa [id number] - [id number] Implanted:Qt y: 10 on 07/13/2010 at [place] [facility] [place]/A: Spine Cervical JNJ : ETHICON CARDIOVATIONS [id number] / / Devaughn [id number] - [id number] Implanted:Qt y: 1 on 07/13/2010 at [place] [facility] [place]/A: Spine Cervical JNJ : ETHICON CARDIOVATIONS [id number] / / Screw Inner Mntr [id number] - [id number] Implanted:Qt y: 8 on 07/13/2010 at [place] [facility] [place]/A: Spine Cervical JNJ : ETHICON CARDIOVATIONS [id number] / / Nut Outer Xcon [id number] - [id number] Implanted:Qt y: 2 on 07/13/2010 at [place] [facility] [place]/A: Spine Cervical JNJ : ETHICON CARDIOVATIONS [id number] / / Screw Inner Xcon [id number] - [id number] Implanted:Qt y: 2 on 07/13/2010 at [place] [facility] [place]/A: Spine Cervical JNJ : ETHICON CARDIOVATIONS [id number] / / Plate 35mm Xcon [id number] - [id number] Implanted:Qt y: 1 on 07/13/2010 at [place] [facility] [place]/A: Spine Cervical JNJ : ETHICON CARDIOVATIONS [id number] / / documented as of this encounter Visit Diagnoses Diagnosis COPD, moderate (HCC)- Primary Chronic airway obstruction, not elsewhere classified Chronic atrial fibrillation (HCC) Atrial fibrillation Coronary artery disease of [place] artery of [place] heart with stable angina pectoris (HCC) DM [...] the patient have Health Care Power of Inventory Analyst? No * Full Code Date Activated Date [...] Power of Attor kim? No Care Teams Brass Pourer Relationship Specialty Start Date End Date Natalia Heller PA-C [address] [place] [address] PCP - General Physician [employer] Worker 01/06/24 documented as of this encounter
--- OUTSIDE RECORDS SUMMARY | 2024-09-05 13:21 | External Medical Summary | Summary of Care ---
Author Name Unknown Organization [facility] Address [address] [place] [address] Phone [phone] Care Team Providers Care Motel Manager Name Role Phone Natalia Heller PA-C Primary Care Provider [phone] Reason for Visit * Reason Onset Date Comments Appointment 07/18/2024 Encounter Details Date Type Department Care Team (Late st Contact Info) Description 07/18/2024 Telephone [facility], [place] [address] [place] [address] Diana, Bruce, SHAKIRA [address] [place] [address] Appointment Allergies Active Allergy Reactions Criticality Noted Date [...] Warfarin Sodium 5 MG Oral Tablet (Coumadin)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 E11.9 400 Strip 3 03/19/2024 12:17 PM EDT 10/04/19 24 Active Accu-Chek Guide Me w/Device KitIndications:Typ e 2 diabetes mellitus with foot ulcer, with long-term current use of insulin ([facility]),DM (diabetes mellitus) type II, controlled, with peripheral vascular disorder ([facility]) Use as directed. 10/04/19 24 Active Accu-Chek Softclix LancetsIndications :Type 2 diabetes mellitus with foot ulcer, with long-term current use of insulin ([facility]),DM (diabetes mellitus) type II, controlled, with peripheral vascular disorder ([facility]) Use to test blood glucose 4 [...] skin once a week. Sundays. Obtaining from [employer]. -- ON HOLD per [place] as of [...] Per Lipid Taxonomy. 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 Appt scheduled in the next available return slot on 09/25. LMOM for pt and added appt reminder to previous [facility] RN appt on 08/12. documented in this encounter Plan of Treatment Upcoming Encounters Date Type Department Care Team (Late st Contact Info) Description 07/19/2024 11:45 AM EST Scheduled Telephone [facility], [facility] [address] [facility] [place] [address] [facility], Nurse [address] [place] [address] 07/20/2024 11:30 AM EST Scheduled Telephone [facility], [facility] 132 [facility] [place] [address] [facility], Nurse [address] [place] [address] 08/11/2024 1:00 PM EST Anticoagulation Pharmacy, [address] [place] [phone] [place] [address] 08/11/2024 1:10 PM EST Office Visit Pharmacy, [address] [facility] [place] [phone] [facility] [facility] [address] 08/12/2024 4:00 PM EST Home Visit [facility], [facility] [address] [place] [address] Rosalind Smith, RN [address] [place] [address] 09/05/2024 9:30 AM EST Office Visit Podiatry [facility], [address] [place] [phone] Kenny Archibald, [facility] [address] [place] [address] 09/25/2024 11:00 AM EST Home Visit [facility], [facility] [address] [place] [address] Radu Suazo PA-C [address] [place] [address] 11/10/2024 11:00 AM EDT Office Visit [facility] [address] [place] [phone] Natalia Heller PA-C [address] [place] [address] 02/18/2025 12:00 PM EDT Office Visit [facility] [address] [place] [phone] Natalia Heller PA-C [address] [place] [address] Scheduled Procedures Name Priority Associated Diagnoses Date/Ti [...] D LEVEL ONCE IN A LIFETIME-USE SMARTSET# 88068 Completed 05/09/2024, 06/18/2020, 07/25/2019, Additional history exists [...] this encounter Medical Devices Implanted Type Area Securities Adviser Device Identifier Shelf Expiration Date Model / Serial / Lot Graft Cervical 6x8 [id number] - [id number] Implanted:Qt y: 2 on 08/21/2008 [place] [facility] [place] - Human Spine Cervical [employer] [id number] / / Screw Spine 14mm 50-014 - [id number] Implanted:Qt y: 2 on 08/21/2008 at [place] [facility] [place] N/A: Spine Cervical [employer] DEPUY 1867-50-014 / / Depuy [place] 14 Mm Sd Con Scr Implanted:Qt y: 2 on 08/21/2008 at [place] [facility] [place] N/A: Spine Cervical [employer]PUY 60-014 / / Description:Depuy skyline 14 mm SD con SCR 34 Mm Plate Implanted:Qt y: 1 on 08/21/2008 at [place] [facility] N/A: Spine Cervical 034 / / Description:34 mm Depuy plat e 14 Mm Variable Rescue Implanted:Qt y: 2 on 08/21/2008 at [place] [facility] N/A: Spine Cervical 54-014 / / Description:14 mm variable r escue Screw 3.5x14 Mntr Fa [id number] - [id number] Implanted:Qt y: 10 on 07/13/2010 at [place] [facility] [place]/A: Spine Cervical JNJ : [employer] [id number] / / Devaughn [id number] - [id number] Implanted:Qt y: 1 on 07/13/2010 at [place] [facility] [place]/A: Spine Cervical JNJ : [employer] [id number] / / Screw Inner Mntr [id number] - [id number] Implanted:Qt y: 8 on 07/13/2010 at [place] [facility] [place]/A: Spine Cervical JNJ : [employer] [id number] / / Nut Outer Xcon [id number] - [id number] Implanted:Qt y: 2 on 07/13/2010 at [place] [facility] [place]/A: Spine Cervical JNJ : [employer] [id number] / / Screw Inner Xcon [id number] - [id number] Implanted:Qt y: 2 on 07/13/2010 at [place] [facility] [place]/A: Spine Cervical JNJ : [employer] [id number] / / Plate 35mm Xcon [id number] - [id number] Implanted:Qt y: 1 on 07/13/2010 at [place] [facility] [place] N/A: Spine Cervical JNJ : [employer] [id number] / / documented as of this encounter [...] the patient have Health Care Power of Production Control Coordinator? No * Full Code Date Activated Date [...] Power of Attor kim? No Care Teams Motel Manager Relationship Specialty Start Date End Date Natalia Heller PA-C [address] [facility] [place] [address] PCP - General Physician Records Management Associate 01/06/24 documented as of this encounter
--- OUTSIDE RECORDS SUMMARY | 2024-09-05 13:21 | External Medical Summary | Summary of Care ---
Author Name Unknown Organization [facility] Address [address] [facility] [address] Phone [phone] Care Team Providers Care Tamale Machine Feeder Name Role Phone Natalia Heller PA-C Primary Care Provider [phone] Reason for Visit * Reason Comments Outpatient Testing Encounter Details Date Type Department Care Team (Late st Contact Info) Description 05/09/2024 9:20 AM EDT Laboratory Laboratory, [place] [address] [place] [address] [place], Laboratory [address] [place] [address] [employer] Other*[id number]; Type 2 diabetes mellitus with foot ulcer, with long-term current use of insulin ([facility]); Dyslipidemia, goal LDL below 70; COPD, moderate ([facility]); Malaise and fatigue; Diabetic polyneuropathy associated with type 1 diabetes mellitus ([facility]); Primary insomnia Allergies Active Allergy Reactions Criticality Noted Date [...] Warfarin Sodium 5 MG Oral Tablet (Coumadin)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 Sundays. Obtaining from [employer]. 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 30 Tablet 05/09/20 024 Discontin ued(Refil l) documented as of this encounter (statuses as [...] artery disease of n ative artery of huslia heart with stable angina pectoris 12/08/2020 Assessment [...] Per Lipid Taxonomy. 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 (Household - for ages [...] EDSelin Summers RN documented in this encounter Miscellaneous Notes * Result Encounter Note - Natalia Heller PA-C - 07/18/2024 11:28 AM EST Results have been reviewed at office visit documented in this encounter Plan of Treatment Upcoming Encounters Date Type Department Care Team (Late st Contact Info) Description 07/19/2024 11:45 AM EST Scheduled Telephone [facility] [place], [address] [place] [address] [facility], Nurse [address] [place] [address] 07/20/2024 11:30 AM EST Scheduled Telephone [facility], [facility] [address] [address] [facility], Nurse [address] [place] [address] 08/11/2024 1:00 PM EST [address] [place] [phone] [facility] [facility] [address] [facility] [address] 08/11/2024 1:10 PM EST Office Visit Pharmacy, [address] [place] [phone] [place] [facility] [address] [facility] [place] [address] 08/12/2024 4:00 PM EST Home Visit [facility], [facility] [address] [place] [address] Rosalind Smith RN [address] [place] [address] 09/05/2024 9:30 AM EST Office Visit Podiatry [facility], [address] [place] [address] Kenny Archibald, [place] [address] [place] [address] 09/25/2024 11:00 AM EST Home Visit [facility], [facility] [address] [place] [address] Radu Suazo PA-C [address] [place] [address] 11/10/2024 11:00 AM EDT [facility] [address] [place] [phone] Natalia Heller PA-C [address] [place] [address] 02/18/2025 12:00 PM EDT [facility] [place] [address] [place] [phone] Natalia Heller PA-C [address] [place] [address] Scheduled Procedures Name Priority Associated Diagnoses Date/Ti [...] D LEVEL ONCE IN A LIFETIME-USE SMARTSET# 47110 Completed 05/09/2024, 06/18/2020, 07/25/2019, Additional history exists [...] this encounter Medical Devices Implanted Type Area Watershed Coordinator Device Identifier Shelf Expiration Date Model / Serial / Lot Graft Cervical 6x8 [id number] - [id number] Implanted:Qt y: 2 [place] [facility] [place] - Human Spine Cervical [employer] Co [id number] / / Screw Spine 14mm 50-014 - [id number] Implanted:Qt y: 2 [place] 08[place]21[place] [facility] [place]A: Spine Cervical CARSON [employer] CARSON DEPUY 50-014 / / Depuy [place] 14 Mm Sd Con Scr Implanted:Qt y: 2 [place] 08[place]21/2008 [place] [facility] [place]: Spine Cervical [employer] DEPUY 60-014 / / Description:Depuy skyline 14 mm SD con SCR 34 Mm Plate Implanted:Qt y: 1 [place] 08[place]21/2008 [place] [facility] [place]/A: Spine Cervical 034 / / Description:34 mm Depuy plat e 14 Mm Variable Rescue Implanted:Qt y: 2 [place] 08[place]21/[place] [facility] [place]A: Spine Cervical 1868-54-014 / / Description:14 mm variable r escue Screw 3.5x14 Mntr Fa [id number] - [id number] Implanted:Qt y: 10 [place] 07[place]13[place]2010 [place] [facility] [place]: Spine Cervical JNJ : ETHICON C[employer]IOVATIONS [id number] / / Devaughn [id number] - [id number] Implanted:Qt y: 1 [place] 07[place]13[place]2010 [place] [facility] [place]: Spine Cervical JNJ : ETH[employer]ON C[employer]ATIONS [id number] / / Screw Inner Mntr [id number] - [id number] Implanted:Qt y: 8 on 07/13/2010 [place] [facility] [place]: Spine Cervical JNJ : ETH[employer]ON C[employer]ATIONS [id number] / / Nut Outer Xcon [id number] - [id number] Implanted:Qt y: 2 [place] 07/13/2010 [place] [facility] [place]: Spine Cervical JNJ : ETH[employer]ON [employer]ATIONS [id number] / / Screw Inner Xcon [id number] - [id number] Implanted:Qt y: 2 on 07/13/2010 [place] [facility] [place]: Spine Cervical JNJ : ETH[employer]ON C[employer]ATIONS [id number] / / Plate 35mm Xcon [id number] - [id number] Implanted:Qt y: 1 [place] 07/13/2010 [place] [facility] [place]: Spine Cervical JNJ : ETHICON C[employer]IOVATIONS [id number] / / documented as of this encounter Procedures Procedure Name Priority Date/Time Associated Diagnosis Comments ALBUMIN / CREATININE RATIO, URINE Routine 05/09/2024 9:40 AM EDT Type 2 diabetes mellitus with foot ulcer, with long-term current use of insulin (HCC) MYCODE SST1 Routine 05/09/2024 9:11 AM EDT [employer] Other*[id number] MYCODE INITIAL ADULT-2SST Routine 05/09/2024 9:11 AM EDT [employer] Other*[id number] MYCODE SUBSEQUENT ADULT Routine 05/09/2024 9:11 AM EDT [employer] Other*[id number], QN Routine 05/09/2024 9:11 AM EDT COPD, moderate (HCC) 25-HYDROXY VITAMIN D Routine 05/09/2024 9:11 AM EDT Malaise and fatigue Diabetic polyneuropathy associated with type 1 diabetes mellitus (HCC) Primary insomnia HEMOGLOBIN A1C Routine 05/09/2024 9:11 AM EDT Type 2 diabetes mellitus with foot ulcer, with long-term current use of insulin (HCC) COMPREHENSIVE METABOLIC PANEL Routine 05/09/2024 9:11 AM EDT Dyslipidemia, goal LDL below 70 Type 2 diabetes mellitus with foot ulcer, with long-term current use of insulin (HCC) TSH Routine 05/09/2024 9:11 AM EDT Malaise and fatigue Diabetic polyneuropathy associated with type 1 diabetes mellitus (HCC) Primary insomnia T4, FREE Routine 05/09/2024 9:11 AM EDT Malaise and fatigue Diabetic polyneuropathy associated with type 1 diabetes mellitus (HCC) Primary insomnia VITAMIN B12 Routine 05/09/2024 9:11 AM EDT Malaise and fatigue Diabetic polyneuropathy associated with type 1 diabetes mellitus (HCC) Primary insomnia documented in this encounter Results * (ABNORMAL) ALBUMIN / CREATININE RATIO, URINE (05/09/2024 9:40 AM EDT) Albumin, Random Urine 13.00 mg/dL 05/09/2024 2:37 PM EDT [facility] Creatinine, Random Urine 147 mg/dL 05/09/2024 2:37 PM EDT [facility] Albumin / Creatinine Ratio, Urine 88(H) <30 mg/g Creat 05/09/2024 2:37 PM EDT [facility] Urine Urine specimen obtained by clean catch procedure / Unknown Non-blood Collection / Unknown 05/09/2024 9:40 AM EDT 05/09/2024 9:40 AM EDT Narrative [facility] - 05/09/2024 2:37 PM EDT Normal: <30 mg/g creatinine High: 30-300 mg/g creatinine Very High: >300 mg/g creatinine Nephrotic: >2200 mg/g creatinine Natalia Heller PA-C LAB URINE ORDERABLES [place] Result Performing Organization Address City/[facility]/ZIP Co de Phone Number LABORATORY [address] [address] * MYCODE SST2 (05/09/2024 9:11 AM EDT) [facility] MyCode Specimen Freezing of extracted DNA, whole blood and/or serum. 05/12/2024 10:01 AM EDT [facility] Blood Venous blood specimen / Unknown Venipuncture / Unknown 05/09/2024 9:11 AM EDT 05/09/2024 9:11 AM EDT Fauzia Zamudio CHRA LAB BLOOD ORDERABLES [place] Result Performing Organization Address [facility] Co de Phone Number LABORATORY [address] [address] * MYCODE SST1 (05/09/2024 9:11 AM EDT) [facility] Free[facility] of extracted DNA, whole blood and/or serum. 05/12/2024 10:01 AM EDT [facility] Blood Venous blood specimen / Unknown Venipuncture / Unknown 05/09/2024 9:11 AM EDT 05/09/2024 9:11 AM EDT Fauzia Doyles CHRA LAB BLOOD ORDERABLES [place] Result [facility] [address] [place] [address] * (ABNORMAL) 25-HYDROXY VITAMIN D (05/09/2024 9:11 AM EDT) [facility] 25-Hydroxy Vitamin D 15(L) >19 ng/mL 05/09/2024 3:34 PM EDT [facility] Blood Venous blood specimen / Unknown Venipuncture / Unknown 05/09/2024 9:11 AM EDT 05/09/2024 9:11 AM EDT Narrative [facility] - 05/09/2024 3:34 PM EDT Deficient: <20 ng/mL Insufficient: 20-29 ng/mL Recommended/Optimum:30-50 ng/mL Vitamin D intoxication is rare. If suspicious of Vitamin D toxicity, evaluation of serum Calcium and PTH is recommended. Natalia A Mingear PA-C LAB BLOOD ORDERABLES [place] Result Performing Organization Address City/[facility]/ZIP Co de Phone Number LABORATORY [address] [address] * T4, FREE (05/09/2024 9:11 AM EDT) Pathologist [facility] T4, Free 1.3 0.9 - 1.7 ng/dL 05/09/2024 3:34 PM EDT [facility] Blood Venous blood specimen / Unknown Venipuncture / Unknown 05/09/2024 9:11 AM EDT 05/09/2024 9:11 AM EDT Natalia A Mingear PA-C LAB BLOOD ORDERABLES [place] Result LABORATORY [address] [address] * TSH (05/09/2024 9:11 AM EDT) Pathologist [facility] TSH 1.95 0.27 - 4.20 uIU/mL 05/09/2024 3:34 PM EDT [facility] Blood Venous blood specimen / Unknown Venipuncture / Unknown 05/09/2024 9:11 AM EDT 05/09/2024 9:11 AM EDT Natalia A Mingear PA-C LAB BLOOD ORDERABLES [place] Result [facility] [address] [place] [address] * VITAMIN B12 (05/09/2024 9:11 AM EDT) [facility] Vitamin B12 563 232 - 1,245 pg/mL 05/09/2024 3:34 PM EDT [facility] Blood Venous blood specimen / Unknown Venipuncture / Unknown 05/09/2024 9:11 AM EDT 05/09/2024 9:11 AM EDT us Nataliafeliz HURTADO-C LAB BLOOD ORDERABLES [place] Result Performing Organization Address City/[facility]/ZIP Co de Phone Number [facility]ORY [facility] [address] [place] [address] * [id number], QN (05/09/2024 9:11 AM EDT) [facility] Gadhi-2-Jrynspadz in QN 183 83 - 199 mg/dL 05/14/2024 7:13 PM EDT [employer] [place] Comment: Test Performed at: [facility] [place] [id number] [place] [address] Renny Tiwari M.D., Ph.D.,Director of Laboratories Blood Venous blood specimen / Unknown Venipuncture / Unknown 05/09/2024 9:11 AM EDT 05/09/2024 9:11 AM EDT us Nataliafeliz HURTADO-Tra LAB BLOOD ORDERABLES [place] Result [employer] [place] [address] [place] [address] * (ABNORMAL) COMPREHENSIVE METABOLIC PANEL (05/09/2024 9:11 AM EDT) [facility] BUN 18 6 - 20 mg/dL 05/09/2024 2:58 PM EDT LAB[facility] CREATININE 0.8 0.5 - 1.0 mg/dL 05/09/2024 2:58 PM EDT LAB[facility]ATORY [facility] EGFR 75 >=60 mL/min 05/09/2024 2:58 PM EDT LAB[facility]ORY [facility] Comment:eGFR is calculated b ased on the CKD-EPI 2020 equation. SODIUM 140 135 - 146 mmol/L 05/09/2024 2:58 PM EDT LAB[facility] POTASSIUM 5.2(H) 3.5 - 5.1 mmol/L 05/09/2024 2:58 PM EDT [facility] CHLORIDE 104 98 - 107 mmol/L 05/09/2024 2:58 PM EDT [facility] CO2 26 22 - 32 mmol/L 05/09/2024 2:58 PM EDT [facility] ANION GAP 10 7 - 15 mmol/L 05/09/2024 2:58 PM EDT [facility] GLUCOSE 192(H) 70 - 120 mg/dL 05/09/2024 2:58 PM EDT [facility] Albumin 4.0 3.8 - 5.0 g/dL 05/09/2024 2:58 PM EDT [facility] AST 35 10 - 35 U/L 05/09/2024 2:58 PM EDT [facility] Alkaline Phosphatase 100 35 - 130 U/L 05/09/2024 2:58 PM EDT [facility] Bilirubin, Total 0.4 <=1.2 mg/dL 05/09/2024 2:58 PM EDT [facility] CALCIUM 10.0 8.4 - 10.2 mg/dL 05/09/2024 2:58 PM EDT [facility] Protein 7.2 6.0 - 8.3 g/dL 05/09/2024 2:58 PM EDT [facility] ALT 24 10 - 35 U/L 05/09/2024 2:58 PM EDT LAB[facility] Blood Venous blood specimen / Unknown Venipuncture / Unknown 05/09/2024 9:11 AM EDT 05/09/2024 9:11 AM EDT us Natalia Heller PA-C LAB BLOOD ORDERABLES [place] Result LABORATORY [facility] [address] [facility] Eloina Crowley[place] [address] * (ABNORMAL) HEMOGLOBIN A1C (05/09/2024 9:11 AM EDT) Hemoglobin A1C 11.1(H) 4.0 - 5.6 % 05/09/2024 4:37 PM EDT [facility] Comment:The use of HbA1c to monitor glycemic status is based on normal hemoglobin and HbA composition. This test should not be used in patients with abnormal hemoglobin that affects the half life of the red blood cell or the in vivo glycation rates. 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) DM (diabetes mellitus) type II, controlled, with peripheral vascular disorder (HCC) Advanced care planning/counseling discussion Other specified counseling [employer] Other*[id number] Type 2 diabetes mellitus with foot ulcer, with long-term current use of insulin (HCC) Dyslipidemia, goal LDL below 70 Other and unspecified hyperlipidemia COPD, moderate (HCC) Chronic airway obstruction, not elsewhere classified Malaise and fatigue Other malaise and fatigue Diabetic polyneuropathy associated with type 1 diabetes mellitus (HCC) Primary insomnia Persistent disorder of initiating or maintaining sleep documented in this encounter Advance Directives * [...] patient have Health Care Power of Senior Commissions Analyst? No * Full Code Date Activated [...] Power of Attor kim? No Care Teams Tamale Machine Feeder Relationship Specialty Start Date End Date Natalia Heller PA-C [address] [facility] [place] [address] PCP - General Physician Water Filterer 01/06/24 documented as of this encounter
--- OUTSIDE RECORDS SUMMARY | 2024-09-05 13:21 | External Medical Summary | Summary of Care ---
Author Name Unknown Organization [facility] Address [address] [facility] [place] [address] Phone [phone] Care Team Providers Care Lace Burn Out Tender Name Role Phone Natalia Heller PA-C Primary Care Provider [phone] Reason for Visit * Reason Onset Date Comments Follow Up 07/19/2024 Encounter Details Date Type Department Care Team (Late st Contact Info) Description 07/19/2024 11:45 AM EST Scheduled Telephone [facility], [facility] [address] [facility] [place] [address] [facility], Nurse [facility] 132 [facility] [place] [address] Allergies Active Allergy Reactions Criticality Noted Date Comments Alendronate Sodium 06/24/2012 Burning sensation and difficulty breathing Proton Pump Inhibitors Hives 02/20/2002 nexium documented as of this encounter (statuses as of 07/19/2024) Medications Multiple Vitamin (DAILY VALUE MULTIVITAMIN) Tablet Take 1 Tablet by mouth in the morning. Active Fluticasone Propionate 50 MCG/ACT Nasal Suspension (Flonase)Indicatio ns:Chronic rhinitis Administer 2 Sprays into each nostril in the morning. 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 E11.9 400 Strip 3 03/19/2024 12:17 PM EDT 10/04/19 24 Active Accu-Chek Guide Me w/Device KitIndications:Typ e 2 diabetes mellitus with foot ulcer, with long-term current use of insulin ([facility]),DM (diabetes mellitus) type II, controlled, with peripheral vascular disorder ([facility]) Use as directed. 10/04/19 24 Active Accu-Chek Softclix LancetsIndications :Type 2 diabetes mellitus with foot ulcer, with long-term current use of insulin ([facility]),DM (diabetes mellitus) type II, controlled, with peripheral vascular disorder ([facility]) Use to test blood glucose 4 times [...] :HTN, goal below 130/80,Coronary artery disease involving pokagon coronary artery of pokagon heart without angina pectoris TAKE ONE TABLET [...] skin once a week. Sundays. Obtaining from [employer]. 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 (5 years old or older) Answer Entry Date Author No 05/02/2019 3:21 PM EDT Selin Phelps RN documented in this encounter Miscellaneous Notes * Telephone Encounter - Reyna Webb RN - 07/19/2024 1:40 PM EST Follow up phone call to patient. No answer. LMOM with [facility] phone number to return call. Will schedule for phone call tomorrow. documented in this encounter Plan of Treatment Upcoming Encounters Date Type Department Care Team (Late st Contact Info) Description 07/20/2024 11:30 AM EST Scheduled Telephone [facility] [address] [facility] [place] [address] [facility], Nurse [facility] [address] [facility] [place] [address] 08/11/2024 1:00 PM EST [address] [facility] [place] [phone] [facility] [address] [facility] [address] 08/11/2024 1:10 PM EST Office [address] [place] [phone] [facility] [address] [facility] [address] 08/12/2024 4:00 PM EST [facility] [address] [place] [address] Rosalind Smith, RN [address] [place] [address] 09/05/2024 9:30 AM EST Office Visit Podiatry [address] [place] [address] Kenny Archibald, DPNik [address] [place] [address] 09/25/2024 11:00 AM EST [facility] [address] [place] [address] Radu Suazo PA-C [address] [place] [address] 11/10/2024 11:00 AM EDT [facility] [place] [phone] Natalia Heller PA-C [address] [place] [address] 02/18/2025 12:[address]T [facility] [place] [phone] Natalia Heller PA-C [address] [place] [address] Scheduled Procedures Name Priority Associated Diagnoses Date/Ti [...] D LEVEL ONCE IN A LIFETIME-USE SMARTSET# 11700 Completed 05/09/2024, 06/18/2020, 07/25/2019, Additional history exists [...] this encounter Medical Devices Implanted Type Area Student Teaching Coordinator Device Identifier Shelf Expiration Date Model / Serial / Lot Graft Cervical 6x8 [id number] - [id number] Implanted:Qt y: 2 on 08/21/2008 at [place] [facility] Tissue - Human Spine Cervical [employer] [id number] / / Screw Spine 14mm 850-014 - [id number] Implanted:Qt y: 2 on 08/21/2008 at OR [facility] N/A: Spine Cervical [employer] DEPUY 1868-50-014 / / Depuy [place] 14 Mm Sd Con Scr Implanted:Qt y: 2 on 08/21/2008 at OR [facility] N/A: Spine Cervical [employer]PUY 1868-60-014 / / Description:Depuy skyline 14 mm SD con SCR 34 Mm Plate Implanted:Qt y: 1 on 08/21/2008 at OR [facility] N/A: Spine Cervical 1868-02-034 / / Description:34 mm Depuy plat e 14 Mm Variable Rescue Implanted:Qt y: 2 on 08/21/2008 at OR [facility] N/A: Spine Cervical [id number] / / Description:14 mm variable r escue Screw 3.5x14 Mntr Fa [id number] - [id number] Implanted:Qt y: 10 on 07/13/2010 at OR [facility] N/A: Spine Cervical JNJ : [employer] [id number] / / Devaughn [id number] - [id number] Implanted:Qt y: 1 on 07/13/2010 at OR [facility] N/A: Spine Cervical JNJ : [employer] [id number] / / Screw Inner Mntr [id number] - [id number] Implanted:Qt y: 8 on 07/13/2010 at OR [facility] N/A: Spine Cervical JNJ : [employer] [id number] / / Nut Outer Xcon [id number] - [id number] Implanted:Qt y: 2 on 07/13/2010 at OR [facility] N/A: Spine Cervical JNJ : [employer]ATIONS [id number] / / Screw Inner Xcon [id number] - [id number] Implanted:Qt y: 2 on 07/13/2010 at OR [facility] N/A: Spine Cervical JNJ : [employer]ATIONS [id number] / / Plate 35mm Xcon [id number] - [id number] Implanted:Qt y: 1 on 07/13/2010 at OR [facility] N/A: Spine Cervical JNJ : [employer] [id number] / / documented as of this encounter [...] the patient have Health Care Power of Metal Fabricating Shop Helper? No * Full Code Date Activated Date [...] Power of Attor kim? No Care Teams Lace Burn Out Tender Relationship Specialty Start Date End Date Natalia Heller PA-C [address] [place] [address] PCP - General Physician Credit Card Specialist 01/06/24 documented as of this encounter
--- OUTSIDE RECORDS SUMMARY | 2024-09-05 13:21 | External Medical Summary | Summary of Care ---
Author Name Unknown Organization [facility] Address [address] [facility] [place] [address] Phone [phone] Care Team Providers Care Waste Collector Name Role Phone Natalia Heller PA-C Primary Care Provider [phone] Reason for Visit * Reason Onset Date Comments [facility]: Maintenance 07/18/2024 Encounter Details Date Type Department Care Team (Late st Contact Info) Description 07/18/2024 Telephone [facility], [facility] [address] [place] [address] Rosalind Smith, RN [address] [place] [address] [facility]: Maintenance Allergies Active Allergy [...] Warfarin Sodium 5 MG Oral Tablet (Coumadin)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 E11.9 400 Strip 3 03/19/2024 12:17 PM EDT 10/04/19 24 Active Accu-Chek Guide Me w/Device KitIndications:Typ e 2 diabetes mellitus with foot ulcer, with long-term current use of insulin ([facility]),DM (diabetes mellitus) type II, controlled, with peripheral vascular disorder ([facility]) Use as directed. 10/04/19 24 Active Accu-Chek Softclix LancetsIndications :Type 2 diabetes mellitus with foot ulcer, with long-term current use of insulin ([facility]),DM (diabetes mellitus) type II, controlled, with peripheral vascular disorder ([facility]) Use to test blood glucose 4 times [...] :HTN, goal below 130/80,Coronary artery disease involving red cliff coronary artery of red cliff heart without angina pectoris TAKE ONE TABLET [...] skin once a week. Sundays. Obtaining from [employer]. 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 She states she was out yesterday and did not eat anything. Likely contributing to hypoglycemia. Reviewed importance of regular balanced meals. Discussed rule of 15's and how to correct a low blood sugar by drinking/eating 15 grams of carbs and testing BG15 minutes later. If BG is still low or if still having symptoms of hypoglycemia, repeat the process. Patient confirmed she does have glucose tablets. Encouraged to always keep these readily available as well as testing supplies when she is going to be out. Per chart review, MTM working with patient to obtain CGM montior. Will continue to follow up on this. Patient agreeable to return call to clinic if lows occur again or persist. Shanon Finn RPh, PharmD Clinical Pharmacist - Fuel System Maintenance Worker Medication Therapy [facility] 07/18/2024, 11:50 AM Ph.[phone] * Telephone Encounter - Rosalind Smith RN - 07/18/2024 9:38 AM EST FYI Today pt reports she had an episode yesterday of low blood sugar She was away in [place] and started to feel sick, diaphoretic and [...] eat breakfast BSG this am is 239 Readings per glucometer: 07/18 - 9:05am - [...] - 108 07/13 - 12:40pm - 264 07/11 - 12:53pm - 219 07/10 - 6:31pm - 428 documented in this encounter Plan of Treatment Upcoming Encounters Date Type Department Care Team (Late st Contact Info) Description 07/19/2024 11:45 AM EST Scheduled Telephone [facility], [facility] 132 [facility] [place] [address] [facility], Nurse [address] [place] [address] 07/20/2024 11:30 AM EST Scheduled Telephone [facility], [facility] 132 [facility] [place] [address] [facility], Nurse [address] [place] [address] 08/11/2024 1:00 PM EST Anticoagulation Pharmacy, [address] [place] [phone] [address] [place] [address] 08/11/2024 1:10 PM EST Office Visit Pharmacy, [address] [place] [phone] [facility] [address] [facility] [address] 08/12/2024 4:00 PM EST Home Visit [facility], [facility] [address] [place] [address] Rosalind Smith RN [address] [place] [address] 09/05/2024 9:30 AM EST Office Visit Podiatry [address] [place] [phone] Kenny Archibald, [address] [address] 09/25/2024 11:00 AM EST [facility] Visit [facility], [facility] [address] [place] [address] Radu Suazo PA-C [address] [place] [address] 11/10/2024 11:00 AM EDT Office Visit [facility], [place] [place] [address] [place] [phone] Natalia Heller PA-C [address] [place] [address] 02/18/2025 12:00 PM EDT Office Visit Family [facility], [place] [address] [place] [address] [place] [phone] Natalia Heller PA-C [address] [address] Scheduled Procedures Name Priority Associated Diagnoses Date/Ti [...] D LEVEL ONCE IN A LIFETIME-USE SMARTSET# 76917 Completed 05/09/2024, 06/18/2020, 07/25/2019, Additional history exists [...] this encounter Medical Devices Implanted Type Area Power Shovel Operator Device Identifier Shelf Expiration Date Model / Serial / Lot Graft Cervical 6x8 [id number] - [id number] Implanted:Qt y: 2 on 08/21/2008 at [place] [facility] Tissue - Human Spine Cervical [employer] [id number] / / Screw Spine 14mm 50-014 - [id number] Implanted:Qt y: 2 on 08/21/2008 at [place] [facility] [place] N/A: Spine Cervical CARSON [employer] CARSON DEPUY 1867-50-014 / / Depuy [place] 14 Mm Sd Con Scr Implanted:Qt y: 2 on 08/21/2008 at [place] [facility] N/A: Spine Cervical [employer] CARSON DEPUY 60-014 / / Description:Depuy skyline 14 mm SD con SCR 34 Mm Plate Implanted:Qt y: 1 on 08/21/2008 at [place] [facility] N/A: Spine Cervical 1867-09-034 / / Description:34 mm Depuy plat e 14 Mm Variable Rescue Implanted:Qt y: 2 on 08/21/2008 at [place] [facility] N/A: Spine Cervical [id number] / / Description:14 mm variable r escue Screw 3.5x14 Mntr Fa [id number] - [id number] Implanted:Qt y: 10 on 07/13/2010 at [place] [facility] N/A: Spine Cervical JNJ : ETHICON CARDIOVATIONS [id number] / / Devaughn [id number] - [id number] Implanted:Qt y: 1 on 07/13/2010 at [place] [facility] N/A: Spine Cervical JNJ : ETHICON CARDIOVATIONS [id number] / / Screw Inner Mntr [id number] - [id number] Implanted:Qt y: 8 on 07/13/2010 at [place] [facility] N/A: Spine Cervical JNJ : ETH[employer]ON CARDI[employer]ATIONS [id number] / / Nut Outer Xcon [id number] - [id number] Implanted:Qt y: 2 on 07/13/2010 at [place] [facility] [place] N/A: Spine Cervical JNJ : ETH[employer]ON CARDIOVATIONS [id number] / / Screw Inner Xcon [id number] - [id number] Implanted:Qt y: 2 on 07/13/2010 at [place] [facility] [place] N/A: Spine Cervical JNJ : ETH[employer]ON CARDIOVATIONS [id number] / / Plate 35mm Xcon [id number] - [id number] Implanted:Qt y: 1 on 07/13/2010 at [place] [facility] N/A: Spine Cervical JNJ : ETHICON CARDIOVATIONS [id number] / / documented as of this encounter Visit Diagnoses Diagnosis COPD, moderate (HCC)- Primary Chronic airway obstruction, not elsewhere classified Chronic atrial fibrillation (HCC) Atrial fibrillation 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 No * Full Code Date Activated Date [...] Power of Attor kim? No Care Teams Waste Collector Relationship Specialty Start Date End Date Natalia Heller PA-C [address] [facility] [place] [address] PCP - General Physician Director Smb Sales 01/06/24 documented as of this encounter
--- OUTSIDE RECORDS SUMMARY | 2024-09-05 13:22 | External Medical Summary | Summary of Care ---
Author Name Unknown Organization [facility] Address [address] [facility] [address] Phone [phone] Care Team Providers Care Bark Tanner Name Role Phone Natalia Heller PA-C Primary Care Provider [phone] [phone] Reason for Visit * Reason Comments Dosage Adjustment In Person (Anticoag Cl inic) Diabetes Follow-Up Encounter Details Date Type Department Care Team (Late st Contact Info) Description 07/09/2024 11:20 AM EST Office Visit Pharmacy, [facility] [address] [place] [phone] [place], [facility] [address] [place] [address] Type 2 diabetes mellitus with foot ulcer, with long-term current use of insulin ([facility])*; DM (diabetes mellitus) type II, controlled, with peripheral vascular disorder (HCC) Allergies Active Allergy Reactions Criticality Noted Date Comments Alendronate Sodium 06/24/2012 Burning sensation and difficulty breathing Proton Pump Inhibitors Hives 02/20/2002 nexium documented as of this encounter (statuses as of 07/09/2024) Medications Multiple Vitamin (DAILY VALUE MULTIVITAMIN) Tablet Take 1 Tablet by mouth in the morning. Active Fluticasone Propionate 50 MCG/ACT Nasal Suspension (Flonase)Indicatio ns:Chronic rhinitis Administer 2 Sprays into each nostril in the morning. 16 g 1 11/02/19 23 Active Warfarin Sodium 5 MG Oral Tablet (Coumadin)Indicati ons:correction current use of anticoagulant therapy,Deep vein thrombosis (DVT) ([facility]) TAKE ONE TABLET TO ONE AND ONE-HALF TABLET BY MOUTH EVERY DAY DIRECTED BY [facility]ADIN CLINIC 135 Tablet 3 04/05/2024 7:59 AM EDT 09/13/19 24 025 Active Accu-Chek Guide In Vitro Strip (Glucose Blood)Indications: Type 2 diabetes mellitus with foot ulcer, with long-term current use of insulin ([facility]),DM (diabetes mellitus) type II, controlled, with peripheral vascular disorder ([facility]) Use to test blood glucose 4 times daily. E11.9 400 Strip 3 03/19/2024 12:17 PM EDT 10/04/19 24 Active Accu-Chek Guide Me w/Device KitIndications:Typ e 2 diabetes mellitus with foot ulcer, with long-term current use of insulin ([facility]),DM (diabetes mellitus) type II, controlled, with peripheral vascular disorder ([facility]) Use as directed. 10/04/19 24 Active Accu-Chek Softclix LancetsIndications :Type 2 diabetes mellitus with foot ulcer, with long-term current use of insulin ([facility]),DM (diabetes mellitus) type II, controlled, with peripheral vascular disorder ([facility]) Use to test blood glucose 4 times [...] :HTN, goal below 130/80,Coronary artery disease involving kake coronary artery of kake heart without angina pectoris TAKE ONE TABLET [...] skin once a week. Sundays. Obtaining from [employer]. 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 30 Tablet 1 06/11/2024 3:28 PM EST 06/10/20 24 Active Albuterol Sulfate HFA 108 (90 Base) MCG/ACT Inhalation Aerosol Solution Inhale 2 puffs by mouth 4 times daily 20.1 g 2 02/06/20 24 Active documented as of this encounter (statuses as of 07/09/2024) Active Problems Problem Noted Date Diagnosed Date [...] artery disease of n ative artery of kake heart with stable angina pectoris 12/08/2020 Assessment [...] as of this encounter (statuses as of 07/09/2024) Resolved Problems Problem Noted Date Diagnosed Date [...] as of this encounter (statuses as of 07/09/2024) Immunizations Name Administration Dates Next Due COVID-19 [...] Date Author No 05/02/2019 3:21 PM Selin Pakr RN documented in this encounter Progress Notes * Shanthi Franks, [facility] - 07/09/2024 11:15 AM EST Images from the original note were not included. Medication Therapy Disease Management [facility] - Diabetes Management Progress Note Graciela Mobley, identified by name and date of , is a 74 year old female being seen for diabetes management/education. Patient presents for return diabetic visit. DIABETES: Current diabetic medications: Metformin 1000mg twice daily HOLD Ozempic 2 mg once weekly- Sundays GFR 74 as of 08/30/23 Medtronic 780G Insulin Pump (Serial Number: [id number]) Infusion Set: Quick set Insulin: Novolog Basal Rate: midnight to 6am: 7.0 units/hour 6am to noon: 7.5 units/hour noon to midnight 8.9 units/hour (strengthened) Bolus: 25 units with breakfast, 45 units [...] BID Medication Injection Site: Abdomen Lifestyle: Diet: unchanged; not finishing meals Glucose Review/SMBG: Readings obtained from patient device Hypoglycemia: Does your blood sugar go below 70 mg/dL? No Hyperglycemia symptoms present: uncertain Recent Labs Units 05/09/24 0911 05/09/24 0823 11/16/23 0000 HEMOGLOBIN A1C - [facility] % 11.1* -- -- HEMOGLOBIN, [id number] [facility] -- -- 10.4* HEMOGLOBIN A1C POCT - [facility] % -- 11.2* -- Recent Labs Units 05/09/24 0911 12/12/23 1523 11/23/23 1023 ESTIMATED GLOMERULAR FILTRATION RATE - [facility] mL/min 75 64 70 CREATININE - [facility] mg/dL 0.8 0.9 0.9 HYPERTENSION: Patient on ACEi/ARB: no, indicated per UACR, but BP Readings from Last 3 Encounters: 06/19/24 110/64 06/10/24 112/62 05/19/24 118/62 Blood pressure at goal: yes HYPERLIPIDEMIA: Recent Labs Units 11/13/23 0431 10/19/23 1023 01/02/23 1410 LDL CHOLESTEROL (CALCULATED) - [facility] mg/dL 51 94 83 Does patient have clinical ASCVD? Yes, is patient LDL less than 55 mg/dL? Yes HEALTH MAINTENANCE REVIEW: Health Maintenance Due Topic Date Due *BISPHONATE OR OTHER ACCEPTABLE MEDICATION NEEDED FOR OSTEOPOROSIS (REFER TO SMARTSET #1146) Never done Adult Wellness Visit 03/27/2023 COVID-19 Vaccine ( season) 2024 Zoster Vaccines (3 of 3) 08/06/2024 ASSESSMENT & PLAN: ICD-10-CM 1. Type 2 diabetes mellitus with foot ulcer, with long-term current use of insulin ([facility]) E11.621 L97.509 Z79.4 2. DM (diabetes mellitus) type II, controlled, with peripheral vascular disorder ([facility]) E11.51 Considerations: - over [employer] income as of 2021 - patient approved for NovoNordisk PAP -- re-enroll in Sep 2024 - omnipod not an option due to cost (on [facility] Gold, would push to donut hole immediately) + pt's current insulin requirement. Glycemic control is unstable and not at goal Patient agreeable to adjust medications as noted below. Basal settings increased as glucose is rising overnight and between meals. ICR/fixed dose continued as glucose is stable postprandially. ISF continued as glucose is correcting to goal range. Patient to SMBG at least 4 times daily, before each meal and at bedtime. Patient aware to contact clinic if any hypoglycemia before next visit. Reviewed rule of 15s. Reviewed appropriate management of hyperglycemia as noted in pump start documentation. MEDICATION CHANGES: yes, see below; preferred pharmacy: [facility] ([facility]) Diabetic Medications: Metformin 1000mg twice daily CONTINUE TO HOLD Ozempic 2 mg once weekly- Sundays GFR 74 as of 08/30/23 Medtronic 780G Insulin Pump (Serial Number: [id number]) Infusion Set: Quick set Insulin: Novolog Basal [...] Exam: Up to Date Annual Wellness Visit: due FOLLOW UP: Return to clinic in 5 weeks 08/11/2024 I spent a total of 30-39 minutes (exact time 39 mins) on the date of service in preparation, delivery, and documentation of the care provided to Graciela Mobley excluding any time spent in the performance of separately billed services. Shanthi Franks RP Clinical Pharmacist - Assistant Professor Of Drama Medication Therapy Management [facility] 07/09/2024, 11:16 AM documented in this encounter Plan of Treatment Upcoming Encounters Date Type Department Care Team (Late st Contact Info) Description 07/17/2024 9:00 AM EST Office Visit Cardiology, [facility] [address] [address] Nesha Denney CRNP [address] [address] 07/18/2024 8:30 AM EST Home Visit [facility] [address] [address] Rosalind Smith, RN [address] [place] [address] 08/11/2024 1:00 PM EST Anticoagulation Pharmacy, [facility] [place] [phone] [facility] [address] [facility] [place] [address] 08/11/2024 1:10 PM EST Office Visit Pharmacy, [place] [facility] [phone] [facility] [address] [facility] [place], [place] [address] 09/05/2024 9:30 AM EST Office Visit Podiatry [address] [place] [phone] Kenny Archibald, [place] [address] [place] [address] 11/10/2024 11:00 AM EDT [facility] Visit [facility] [place] [place] [facility] [address] [facility] [phone] Natalia Heller PA-C [address] [facility] [address] Scheduled Procedures Name Priority Associated Diagnoses Date/Ti [...] D LEVEL ONCE IN A LIFETIME-USE SMARTSET# 67022 Completed 05/09/2024, 06/18/2020, 07/25/2019, Additional history exists [...] this encounter Medical Devices Implanted Type Area Photo Colorer Device Identifier Shelf Expiration Date Model / Serial / Lot Graft Cervical 6x8 [id number] - [id number] Implanted:Qt y: 2 on 08/21/2008 at [place] [facility] Tissue - Human Spine Cervical [employer] [id number] / / Screw Spine 14mm 50-014 - [id number] Implanted:Qt y: 2 on 08/21/2008 at [place] [facility] N/A: Spine Cervical [employer] CAR[employer] DEPUY 8-50-014 / / Depuy [place] 14 Mm Sd Con Scr Implanted:Qt y: 2 on 08/21/2008 at [place] [facility] N/A: Spine Cervical [employer] CAR[employer] DEPUY 860-014 / / Description:Depuy skyline 14 mm SD con SCR 34 Mm Plate Implanted:Qt y: 1 on 08/21/2008 at [place] [facility] N/A: Spine Cervical / / Description:34 mm Depuy plat e 14 Mm Variable Rescue Implanted:Qt y: 2 on 08/21/2008 at [place] [facility] N/A: Spine Cervical [id number] / / Description:14 mm variable r escue Screw 3.5x14 Mntr Fa [id number] - [id number] Implanted:Qt y: 10 on 07/13/2010 at [place] [facility] N/A: Spine Cervical JNJ : [employer] [id number] / / Devaughn 3.6d439cy [id number] - [id number] Implanted:Qt y: 1 on 07/13/2010 at [place] [facility] N/A: Spine Cervical JNJ : [employer]ON [employer] [id number] / / Screw Inner Mntr [id number] - [id number] Implanted:Qt y: 8 on 07/13/2010 at [place] [facility] N/A: Spine Cervical JNJ : [employer]ATIONS [id number] / / Nut Outer Xcon [id number] - [id number] Implanted:Qt y: 2 on 07/13/2010 at [place] [facility] N/A: Spine Cervical JNJ : [employer] [id number] / / Screw Inner Xcon [id number] - [id number] Implanted:Qt y: 2 on 07/13/2010 at [place] [facility] N/A: Spine Cervical JNJ : [employer]ATIONS [id number] / / Plate 35mm Xcon [id number] - [id number] Implanted:Qt y: 1 on 07/13/2010 at [place] [facility] N/A: Spine Cervical JNJ : ETH[employer]ON C[employer]ATIONS [id number] / / documented as of this encounter Visit Diagnoses Diagnosis COPD, moderate (HCC)- Primary Chronic airway obstruction, not elsewhere classified Chronic atrial fibrillation (HCC) Atrial fibrillation 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 No * Full Code Date Activated Date [...] Power of Attor kim? No Care Teams Bark Tanner Relationship Specialty Start Date End Date Natalia Heller PA-C [address] [place] [address] PCP - General Physician Personal Chef 01/06/24 documented as of this encounter
--- OUTSIDE RECORDS SUMMARY | 2024-09-05 13:22 | External Medical Summary ---
Author Name Unknown Address Unknown Organization : Laboratory Report Ordering Provider Test Date Status LETICIA HOOD 07/09/2024 11:27:06 Final Therapeutic ranges for non-o perative patients:
Prophylaxsis/treatment of DVT: (Range:2.0-3.0)
Treatment of pulmonary embolism:(Range:2.0-3.0)
Prevention of systemic embolism from:
-tissue heart valves
-acute myocardial infarction
-valvular heart disease
-atrial fibrillation
(Range: 2.0-3.0)
Mechanical prosthetic valves: (Range: 2.5-3.5) Observation Date Value Abnormality Reference (Units ) Status INR in Capillary blood by Coagulation assay 07/09/2024 11:27:06 2.5 (INR) Final Performing Location
--- OUTSIDE RECORDS SUMMARY | 2024-09-05 13:22 | External Medical Summary | Summary of Care ---
Author Name Unknown Organization [facility] Address [address] [place] [address] Phone [phone] Care Team Providers Care Poundmaster Name Role Phone Natalia Heller PA-C Primary Care Provider [phone] Reason for Visit * Reason Onset Date Comments [facility]: Maintenance 07/18/2024 Encounter Details Date Type Department Care Team (Late st Contact Info) Description 07/18/2024 Telephone [facility], [place] [address] [place] [id number] Diana, Bruce, SHAKIRA [address] [place] [address] [facility]: Maintenance Allergies Active Allergy [...] Warfarin Sodium 5 MG Oral Tablet (Coumadin)Indicati ons:shelter current use of anticoagulant therapy,Deep vein thrombosis (DVT) (HCC) TAKE ONE TABLET TO ONE AND ONE-HALF TABLET BY MOUTH EVERY DAY DIRECTED BY [facility] 135 Tablet 3 04/05/2024 7:59 AM EDT 09/13/19 24 025 Active Accu-Chek Guide In Vitro Strip (Glucose Blood)Indications: Type 2 diabetes mellitus with foot ulcer, with long-term current use of insulin ([facility]),DM (diabetes mellitus) type II, controlled, with peripheral vascular disorder ([facility]) Use to test blood glucose 4 times daily. E11.9 400 Strip 3 03/19/2024 12:17 PM EDT 10/04/19 24 Active Accu-Chek Guide Me w/Device KitIndications:Typ e 2 diabetes mellitus with foot ulcer, with long-term current use of insulin ([facility]),DM (diabetes mellitus) type II, controlled, with peripheral vascular disorder ([facility]) Use as directed. 10/04/19 24 Active Accu-Chek Softclix LancetsIndications :Type 2 diabetes mellitus with foot ulcer, with long-term current use of insulin ([facility]),DM (diabetes mellitus) type II, controlled, with peripheral vascular disorder ([facility]) Use to test blood glucose 4 [...] :HTN, goal below 130/80,Coronary artery disease involving marshall coronary artery of marshall heart without angina pectoris TAKE ONE TABLET [...] skin once a week. Sundays. Obtaining from [employer] -- ON HOLD per [place] as of 06/11/24 Active Nitroglycerin 0.3 MG Sublingual Tablet Sublingual (Nitrostat)Indicat ions:Coronary artery disease of marshall artery of marshall heart with stable angina pectoris (HCC) PLACE [...] artery disease of n ative artery of marshall heart with stable angina pectoris 12/08/2020 Assessment [...] Encounter - Bruce Diana OSA - 07/18/2024 10:24 AM EST Dashboard request- pt in need of mobile xray. Order faxed to [facility] at [phone]. documented in this encounter Plan of Treatment Upcoming Encounters Date Type Department Care Team (Late st Contact Info) Description 07/19/2024 11:45 AM EST Scheduled Telephone [facility], [address] [address] [facility], Nurse [address] [place] [address] 07/20/2024 11:30 AM EST Scheduled Telephone [facility] [place], [facility] [address] [facility] [place] [address] [facility], Nurse [address] [place] [address] 08/11/2024 1:00 PM EST Anticoagulation Pharmacy, [address] [facility] [place] [phone] [place] [address] [place] [address] 08/11/2024 1:10 PM EST Office Visit Pharmacy, [address] [facility] [place] [phone] [facility] [address] [place], [place] [address] [address] 08/12/2024 4:00 PM EST Home Visit [facility] at [facility] [address] [place] [address] oRsalind Smith, RN [address] [place] [address] 09/05/2024 9:30 AM EST Office Visit Podiatry [address] [place] [address] Kenny Archibald, [facility] [address] [place] [address] 11/10/2024 11:00 AM EDT [facility] [address] [facility] [place] [phone] Natalia Heller PA-C [address] [facility] [place] [address] 02/18/2025 12:00 PM EDT [facility] [place] [address] [facility] [place] [phone] Natalia Heller PA-C [address] [facility] [place] [address] Scheduled Procedures Name Priority Associated Diagnoses Date/Ti [...] D LEVEL ONCE IN A LIFETIME-USE SMARTSET# 12125 Completed 05/09/2024, 06/18/2020, 07/25/2019, Additional history exists [...] this encounter Medical Devices Implanted Type Area Edging Catcher Device Identifier Shelf Expiration Date Model / Serial / Lot Graft Cervical 6x8 [id number] - [id number] Implanted:Qt y: 2 on 08/21/2008 at [place] [facility] Tissue - Human Spine Cervical [employer] [id number] / / Screw Spine 14mm 50-014 - [id number] Implanted:Qt y: 2 on 08/21/2008 at [place] [facility] N/A: Spine Cervical CARSON [employer] CARSON DEPUY [id number] / / Depuy [place] 14 Mm Sd Con Scr Implanted:Qt y: 2 on 08/21/2008 at [place] [facility] N/A: Spine Cervical [employer] CAR[employer]PUY 60-014 / / Description:Depuy skyline 14 mm SD con SCR 34 Mm Plate Implanted:Qt y: 1 on 08/21/2008 at [place] [facility] N/A: Spine Cervical / / Description:34 mm Depuy plat e 14 Mm Variable Rescue Implanted:Qt y: 2 on 08/21/2008 at [place] [facility] N/A: Spine Cervical [address] / / Description:14 mm variable r escue Screw 3.5x14 Mntr Fa [id number] - [id number] Implanted:Qt y: 10 on 07/13/2010 at [place] [facility] N/A: Spine Cervical JNJ : ETH[employer]ON C[employer]OVATIONS [id number] / / Devaughn [id number] - [id number] Implanted:Qt y: 1 on 07/13/2010 at [place] [facility] N/A: Spine Cervical JNJ : [employer]ON CARD[employer]ATIONS [id number] / / Screw Inner Mntr [id number] - [id number] Implanted:Qt y: 8 on 07/13/2010 at [place] [facility] N/A: Spine Cervical JNJ : ETH[employer]ON C[employer]ATIONS [id number] / / Nut Outer Xcon [id number] - [id number] Implanted:Qt y: 2 on 07/13/2010 at [place] [facility] N/A: Spine Cervical JNJ : ETH[employer]ON C[employer]ATIONS [id number] / / Screw Inner Xcon [id number] - [id number] Implanted:Qt y: 2 on 07/13/2010 at [place] [facility] N/A: Spine Cervical JNJ : ETH[employer]ON C[employer]ATIONS [id number] / / Plate 35mm Xcon [id number] - [id number] Implanted:Qt y: 1 on 07/13/2010 at [place] [facility] N/A: Spine Cervical JNJ : [employer]ON C[employer]ATIONS [id number] / / documented as of this encounter [...] the patient have Health Care Power of Physical Aerodynamicist? No * Full Code Date Activated Date [...] Power of Attor kim? No Care Teams Poundmaster Relationship Specialty Start Date End Date Natalia Heller PA-C [address] [address] PCP - General Physician Water Control Station Engineer 01/06/24 documented as of this encounter
--- OUTSIDE RECORDS SUMMARY | 2024-09-05 13:22 | External Medical Summary | Summary of Care ---
Author Name Unknown Organization [facility] Address [address] [address] Phone [phone] Care Team Providers Care Environmental Remediation Specialist Name Role Phone Natalia Heller PA-C Primary Care Provider [phone] Reason for Visit * Reason Comments Dosage Adjustment In Person (Anticoag Cl inic) Encounter Details Date Type Department Care Team (Latest Contact Info) Description 07/09/2024 11:10 AM EST Anticoagulation Pharmacy, [facility] [address] [place] [address] [facility] [address] [place] [phone] Anticoagulation management encounter*; History of DVT (deep [...] Warfarin Sodium 5 MG Oral Tablet (Coumadin)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 10/04/19 24 Active Accu-Chek [...] :HTN, goal below 130/80,Coronary artery disease involving [place] coronary artery of [place]ick heart without angina pectoris TAKE ONE TABLET [...] skin once a week. Sundays. Obtaining from [employer]. -- ON HOLD per MT as of 06/11/24 Active Nitroglycerin 0.3 MG Sublingual Tablet Sublingual (Nitrostat)Indicat ions:Coronary artery disease of [place] artery of [place] heart with stable angina pectoris (HCC) PLACE [...] Tablet by mouth at bedtime. 30 Tablet 10/28/20 24 Active Additional Information Patient taking differently: [...] artery disease of n ative artery of ch[place]ick heart with stable angina pectoris 12/08/2020 Assessment [...] the room") Medication Regimen All Classes - [facility] Remote Patient Monitoring Vendor: No Connected RPM Device(s): Traditional Pulse Ox Exacerbation plan Solumedrol 40mg IM/IV Chest Xray Additional Comments: Breathing at baseline today Senile osteoporosis 02/02/2012 DYSLIPIDEMIA, GOAL LDL BELOW 100 07/15/2009 Overview (07/15/2009): Per Lipid Taxonomy. 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 [...] Progress Notes * Shanthi Franks RPh - 07/09/2024 11:06 AM EST Medication Therapy Disease Management - Anticoagulation Patient: Graciela Mobley | : 1950 Subjective Patient-Reported Symptoms: Patient Findings Negatives: Signs/symptoms of thrombosis, Signs/symptoms of bleeding, Change in health, Change in alcohol use, Change in activity, Upcoming invasive procedure, Missed doses, Extra doses, Change in medications, Change in diet/appetite, Bruising Objective Current Warfarin Dose As of 07/09/2024 Warfarin maintenance plan: 10 mg (5 mg x 2) every Sun, Tue, Karen; 5 mg (5 mg x 1) all other days INR Result As of 07/09/2024 INR goal: 2.0-3.0 INR used for dosin.5 (07/09/2024) Assessment & Plan Warfarin Plan As of 07/09/2024 Full warfarin instructions: 10 mg every Sun, Tue, Karen; 5 mg all other days No change documented: Shanthi Franks RPh Next INR check: 08/11/2024 Repeat PT/INR in 5 week(s) Weekly dose: not changed Additional Dosing Information: Description I spent a total of 10-19 minutes (exact time 10 mins) on the date of service in preparation, delivery, and documentation of the care provided to Graciela Mobley excluding any time spent in the performance of separately billed services or time spent by another provider/QHP. Shanthi Franks RPh Clinical Pharmacist 07/09/2024, 11:06 AM documented in this encounter Plan of Treatment Upcoming Encounters Date Type Department Care Team (Late st Contact Info) Description 07/17/2024 9:00 AM EST Office Visit Cardiology, [facility] [address] [place] [address] Nesha Denney CRNP [address] [place] [address] 07/18/2024 8:30 AM EST Home Visit [facility] at [place], [facility] [address] [place] [address] Rosalind Smith RN [address] [place] [address] 08/11/2024 1:00 PM EST [facility] [address] [facility] [phone] [place] [address] [address] [facility] [place] [address] 08/11/2024 1:10 PM EST Office Visit Pharmacy, [facility] [address] [place] [phone] [place] [address] [place] [address] 09/05/2024 9:30 AM EST Office Visit Podiatry [address] [place] [phone] Kenny Archibald, [facility] [place] [address] 11/10/2024 11:00 AM EDT [facility] [address] [facility] [place] [phone] Natalia Heller PA-C [address] [place] [address] Scheduled Procedures Name Priority Associated Diagnoses Date/Ti [...] D LEVEL ONCE IN A LIFETIME-USE SMARTSET# 47475 Completed 05/09/2024, 06/18/2020, 07/25/2019, Additional history exists [...] this encounter Medical Devices Implanted Type Area Splicer Operator Device Identifier Shelf Expiration Date Model / Serial / Lot Graft Cervical 6x8 [id number] - [id number] Implanted:Qt y: 2 on 08/21/2008 at [place] [facility] Tissue - Human Spine Cervical [employer] [id number] / / Screw Spine 14mm 50-014 - [id number] Implanted:Qt y: 2 on 08/21/2008 at OR [facility] N/A: Spine Cervical [employer]SON [employer] CARSON DEPUY 50-014 / / Depuy [place] 14 Mm Sd Con Scr Implanted:Qt y: 2 on 08/21/2008 at OR [facility] N/A: Spine Cervical [employer] DEPUY 60-014 / / Description:Depuy skyline 14 mm SD con SCR 34 Mm Plate Implanted:Qt y: 1 on 08/21/2008 at OR [facility] N/A: Spine Cervical 034 / / Description:34 mm Depuy plat e 14 Mm Variable Rescue Implanted:Qt y: 2 on 08/21/2008 at OR [facility] N/A: Spine Cervical [id number] / / Description:14 mm variable r escue Screw 3.5x14 Mntr Fa [id number] - [id number] Implanted:Qt y: 10 on 07/13/2010 at [place] [facility] N/A: Spine Cervical JNJ : [employer] [id number] / / Devaughn 3.6l565ng [id number] - [id number] Implanted:Qt y: 1 on 07/13/2010 at [place] [facility] N/A: Spine Cervical JNJ : [employer] [id number] / / Screw Inner Mntr [id number] - [id number] Implanted:Qt y: 8 on 07/13/2010 at [place] [facility] N/A: Spine Cervical JNJ : [employer] [id number] / / Nut Outer Xcon [id number] - [id number] Implanted:Qt y: 2 on 07/13/2010 at OR [facility] N/A: Spine Cervical JNJ : [employer] [id number] / / Screw Inner Xcon [id number] - [id number] Implanted:Qt y: 2 on 07/13/2010 at [place] [facility] N/A: Spine Cervical JNJ : [employer] [id number] / / Plate 35mm Xcon [id number] - [id number] Implanted:Qt y: 1 on 07/13/2010 at [place] [facility] N/A: Spine Cervical JNJ : [employer] [id number] / / documented as of this encounter Procedures Procedure Name Priority Date/Time Associated Diagnosis Comments INR FINGERSTICK, POINT OF CARE STAT 07/09/2024 11:27 AM EST History of DVT (deep vein thrombosis) Chronic atrial fibrillation (HCC) Anticoagulation management encounter documented in this encounter Results * INR FINGERSTICK, POINT OF CARE (07/09/2024 11:27 AM EST) Fingerstick INR 2.5 INR 11:46 AM EST [facility] Blood 07/09/2024 11:2 7 AM EST 07/09/2024 11:46 AM EST Narrative [facility] - 07/09/2024 11:46 AM EST Therapeutic ranges for non-operative patients: Prophylaxsis/treatment of DVT: (Range:2.0-3.0) Treatment of pulmonary embolism:(Range:2.0-3.0) Prevention of systemic embolism from: -tissue heart valves -acute myocardial infarction -valvular heart disease -atrial fibrillation (Range: 2.0-3.0) Mechanical prosthetic valves: (Range: 2.5-3.5) Shanthi Franks [facility] POINT OF CARE TEST DOCKED DEVICE UNSOLICITED RESULTS Final Result [facility] [place] [address], [facility] documented in this encounter Visit Diagnoses Diagnosis COPD, moderate (HCC)- Primary Chronic airway obstruction, not elsewhere classified Chronic atrial fibrillation (HCC) Atrial fibrillation 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 No * Full Code Date Activated Date [...] Power of Attor kim? No Care Teams Environmental Remediation Specialist Relationship Specialty Start Date End Date Natalia Heller PA-C [address] [facility] [place] [place] [id number] PCP - General Physician Ignition Expert 01/06/24 documented as of this encounter
--- OUTSIDE RECORDS SUMMARY | 2024-09-05 13:23 | External Medical Summary | Summary of Care ---
Author Name Unknown Organization [facility] Address [address] [facility] [place] [address] Phone [phone] Care Team Providers Care Network Support Technician Name Role Phone Natalia Heller PA-C Primary Care Provider [phone] Reason for Visit * Reason Comments Medication Discussion Encounter Details Date Type Department Care Team (Late st Contact Info) Description 06/11/2024 11:30 AM [facility] Pharmacy Pharmacy, [address] [address] [facility] [address] [place] [address] Encounter for medication review* Allergies Active Allergy Reactions Criticality Noted Date Comments Alendronate Sodium 06/24/2012 Burning sensation and difficulty breathing Proton Pump Inhibitors Hives 02/20/2002 nexium documented as of this encounter (statuses as of 06/11/2024) Medications Medication Sig Dispensed Refills Start Date End Date Status Multiple Vitamin (DAILY VALUE MULTIVITAMIN) Tablet Take 1 Tablet by mouth in the morning. Active Fluticasone Propionate 50 MCG/ACT Nasal Suspension (Flonase)Indications :Chronic rhinitis Administer 2 Sprays into each nostril in the morning. 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 10/04/2023 Active Accu-Chek Softclix LancetsIndications:T ype 2 diabetes mellitus with foot ulcer, with long-term current use of insulin ([facility]),DM (diabetes mellitus) type II, controlled, with peripheral vascular disorder ([facility]) Use to test blood glucose 4 times daily. DX: E11.9 400 Each 3 10/04/2023 Active Rosuvastatin Calcium 20 MG Oral Tablet (Crestor)Indications :Dyslipidemia, goal LDL below 70 Take 1 Tablet by mouth in the morning. 90 Tablet 3 10/25/2023 Active Insulin Aspart 100 UNIT/ML Injection Solution (NovoLOG) Inject under the skin. 310 units in pump. Getting from [employer] Active Aspirin 81 MG Oral Tablet Delayed Release Take 1 Tablet by mouth in the morning. 12/11/2023 Active Furosemide 20 MG Oral Tablet (Lasix) Take 1 Tablet by mouth once a day on Sunday, Sunday, and Sunday only. 45 Tablet 3 12/12/2023 Active Potassium Chloride ER 10 MEQ Oral Capsule Extended Release Take 1 Capsule by mouth once a day on Sunday, Sunday, and Sunday only. 45 Capsule 3 12/12/2023 Active Metoprolol Succinate ER 50 MG Oral Tablet Extended Release 24 Hour (toPROL XL) TAKE ONE TABLET BY MOUTH TWICE A DAY 180 Tablet 3 01/07/2024 5 Active Isosorbide Mononitrate ER 60 MG Oral Tablet Extended Release 24 Hour (Imdur)Indications:H TN, goal below 130/80,Coronary artery disease involving [place] coronary artery of [place] heart without angina pectoris TAKE ONE TABLET BY MOUTH EVERY MORNING 90 Tablet 3 01/15/2024 5 Active metFORMIN HCl 1000 MG Oral Tablet (Glucophage)Indicati ons:DM type 1 causing neurological disease, not at goal (HCC) TAKE ONE TABLET BY MOUTH TWICE A DAY WITH FOOD 200 Tablet 3 01/22/2024 5 Active Vitamin B12 500 MCG Oral Tablet Take by mouth daily. Active Ozempic (2 MG/DOSE) 8 MG/3ML Subcutaneous Solution Pen-injector (Semaglutide (2 MG/DOSE)) Inject 2 mg under the skin once a week. Sundays. Obtaining from [employer]. -- ON HOLD per MTM as of 06/11/24 Active Nitroglycerin 0.3 MG Sublingual Tablet Sublingual (Nitrostat)Indicatio ns:Coronary artery disease of [place] artery of [place] heart with stable angina pectoris (HCC) PLACE 1 TABLET UNDER THE TONGUE EVERY 5 MINUTES UP TO 3 DOSES NEEDED FOR CHEST PAIN. IF NO RELIEF CALL 911 OR GO TO ER 25 Tablet 11 02/05/2024 5 Active Albuterol Sulfate HFA 108 (90 Base) MCG/ACT Inhalation Aerosol SolutionIndications: Bronchitis, complicated Inhale 2 Puffs by mouth 4 times daily 54 g 3 02/06/2024 Active Sertraline HCl 50 MG Oral Tablet (Zoloft) TAKE 1 AND 1/2 TABLETS BY MOUTH AT BEDTIME 135 Tablet 1 05/06/2024 Active Pregabalin 150 MG Oral Capsule (Lyrica)Indications: Diabetic polyneuropathy associated with type 1 diabetes mellitus (HCC) TAKE ONE CAPSULE BY MOUTH TWICE A DAY 180 Capsule 1 05/09/2024 5 Active Mirtazapine 30 MG Oral Tablet (Remeron)Indications :Primary insomnia,Poor appetite Take 1 Tablet by mouth at bedtime. 30 Tablet 06/02/2024 Active Additional Information Patient taking differently: 15 mgOral HS, Reported on 06/11/2024 Cephalexin 500 MG Oral Capsule Take 1 Capsule by mouth in the morning and 1 Capsule at noon and 1 Capsule before bedtime. Do all this for 10 days. 30 Capsule 06/10/2024 4 Active Famotidine 40 MG Oral Tablet (Pepcid) Take 1 Tablet by mouth in the morning. 30 Tablet 1 06/10/2024 Active documented as of this encounter (statuses as of 06/11/2024) Active Problems Problem Noted Date Diagnosed Date Diabetic polyneuropathy asso ciated with type 1 diabetes mellitus 11/23/2023 Hypotension 11/12/2023 Atrial fibrillation with rapid ventricular respo nse 11/12/2023 Type 2 diabetes mellitus with foot ulcer (CODE) 09/19/2022 Gastro-esophageal reflux disease without esophag itis 03/27/2022 Major depressive disorder, recurrent, unspecifie d 02/10/2021 DM (diabetes mellitus) type II, controlled, with peripheral vascular disorder 12/08/2020 Last Assessment & Plan: "RED FLAG" Diabetic symptoms: Excessive Thirst, Confusion, and Vision Changes Goal HgbA1c <8 Diabetic Complications Vascular (examples: PVD, PAD, CAD, CVA) Neurologic (example: Peripheral Neuropathy) Renal (example: CKD, Proteinuria, Dialysis) Medication Regimen Metformin Bolus/Short Acting Insulin DM Secondary Prevention Aspirin Routine Podiatry Care Additional Comments Has insulin pump Working with MTM to improve glycemic control Coronary artery disease of n ative artery of [place] heart with stable angina pectoris 12/08/2020 Last Assessment & Plan: Follows with cardiology Medically managed at this time Using ntg prn History of ankle surgery 03/24/2020 History of complete ray ampu tation of first toe of right foot 06/08/2019 Chronic atrial fibrillation 03/25/2019 Last Assessment & Plan: Rate controlled Continue coumadin as per MTM Diabetic cataract, 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 Shanthi Franks, PharmD, BCACP Clinical Pharmacist Medication Therapy Disease Management 06/11/2024, 11:31 AM documented in this encounter Plan of Treatment Upcoming Encounters Date Type Department Care Team (Late st Contact Info) Description 06/19/2024 4:00 PM EST Home Visit [facility] [address] [place] [address] Rosalind Smith, RN [address] [place] [address] 06/25/2024 11:50 AM EST Anticoagulation Pharmacy, [place] [address] [address] [facility] [address] [place], [facility] [address] [facility] [address] 07/09/2024 11:10 AM EST Anticoagulation Pharmacy, [place] [address] [facility], [place] [address] [facility] [address] [place] [facility] [place] [address] 07/09/2024 11:20 AM EST Office Visit Pharmacy, [place] [address] [facility], [place] [address] [facility] [address] [facility], [place] [address] 07/09/2024 12:00 PM EST [address] [address] Alfa Jaramillo MD [address] [facility] [address] 07/17/2024 9:00 AM EST Office Visit Cardiology, [facility] [address] [facility] [place] [address] Nesha Denney CRNP [address] [facility] [place] [address] 09/05/2024 9:30 AM EST Office Visit Podiatry [address] [place] [phone] Kenny Archibald, JULI[address] [address] 11/10/2024 11:00 AM EDT Office Visit [facility] [address] [facility] [address] Natalia Heller PA-C [address] [facility] [place] [address] Scheduled Procedures Name Priority Associated Diagnoses Date/Ti me COLONOSCOPY FLEXIBLE PROXIMA L DIAGNOSTIC Recall Screening for colon cancer Health Maintenance Due Date Last Done Comments *BISPHONATE OR OTHER ACCEPTABLE MEDICATION NEEDED FOR OSTEOPOROSIS (REFER TO SMARTSET #1146) 08/07/2014 Zoster Vaccines (2 of 3) 04/20/2017 02/23/2017 Adult Wellness Visit 03/27/2023 03/27/2022, 01/19/20 21 COVID-19 Vaccine ( season) 2024 05/08/2022, 07/20/2021, 10/13/2020, Additional history exists DTap/Tdap Vaccines (2 - Td or Tdap) [...] D LEVEL ONCE IN A LIFETIME-USE SMARTSET# 82568 Completed 05/09/2024, 06/18/2020, 07/25/2019, Additional history exists [...] this encounter Medical Devices Implanted Type Area Self Propelled Mining Machine Operator Device Identifier Shelf Expiration Date Model / Serial / Lot Graft Cervical 6x8 [id number] - [id number] Implanted:Qt y: 2 on 08/21/2008 at OR [facility] Tissue - Human Spine Cervical [employer] [id number] / / Screw Spine 14mm 50-014 - [id number] Implanted:Qt y: 2 on 08/21/2008 at OR [facility] N/A: Spine Cervical CARSON [employer] CARSON DEPUY 1867-50-014 / / Depuy [place] 14 Mm Sd Con Scr Implanted:Qt y: 2 on 08/21/2008 at OR [facility] N/A: Spine Cervical [employer] DEPUY 60-014 / / Description:Depuy skyline 14 mm SD con SCR 34 Mm Plate Implanted:Qt y: 1 on 08/21/2008 at OR [facility] N/A: Spine Cervical 02-034 / / Description:34 mm Depuy plat e 14 Mm Variable Rescue Implanted:Qt y: 2 on 08/21/2008 at OR [facility] N/A: Spine Cervical 54-014 / / Description:14 mm variable r escue Screw 3.5x14 Mntr Fa [id number] - [id number] Implanted:Qt y: 10 on 07/13/2010 at OR [facility] N/A: Spine Cervical JNJ : ETH[employer] C[employer]ATIONS [id number] / / Devaughn 3.1t321aj [id number] - [id number] Implanted:Qt y: 1 on 07/13/2010 at OR [facility] N/A: Spine Cervical JNJ : ETH[employer]ATIONS [id number] / / Screw Inner Mntr [id number] - [id number] Implanted:Qt y: 8 on 07/13/2010 at OR [facility] N/A: Spine Cervical JNJ : ETH[employer]ATIONS [id number] / / Nut Outer Xcon [id number] - [id number] Implanted:Qt y: 2 on 07/13/2010 at OR [facility] N/A: Spine Cervical JNJ : [employer] [id number] / / Screw Inner Xcon [id number] - [id number] Implanted:Qt y: 2 on 07/13/2010 at OR [facility] N/A: Spine Cervical JNJ : [employer]ATIONS [id number] / / Plate 35mm Xcon [id number] - [id number] Implanted:Qt y: 1 on 07/13/2010 at OR [facility] N/A: Spine Cervical JNJ : [employer] [id number] / / documented as of this encounter Visit Diagnoses Diagnosis Encounter for medication review- Primary Encounter for long-term (current) use of other medications documented in this encounter Advance Directives * [...] the patient have Health Care Power of Correctional Nurse? No * Full Code Date Activated Date [...] Power of Attor kim? No Care Teams Network Support Technician Relationship Specialty Start Date End Date Natalia Heller PA-C [address] [facility] [place] [address] PCP - General Physician Casual Shoe Inspector 01/06/24 documented as of this encounter
--- OUTSIDE RECORDS SUMMARY | 2024-09-05 13:23 | External Medical Summary | Summary of Care ---
Author Name Unknown Organization [facility] Address [address] [facility] [place] [address] Phone [phone] Care Team Providers Care Thermograph Operator Name Role Phone Natalia Heller PA-C Primary Care Provider [phone] Reason for Visit * Reason Onset Date Comments Acute Many issues. Pt isn't able to sleep well at night and isn't eating properly. stating she is vomiting more often and "just isn't doing well." Immunizations 06/10/2024 Shingrix Encounter Details Date Type Department Care Team (Late st Contact Info) Description 06/10/2024 11:00 AM EST Office Visit [address] [address] Alfa Jaramillo MD [address] [place] [address] Bronchitis, complicated*; COPD, moderate (HCC); Need for vaccination for zoster; Diabetic polyneuropathy associated with type 2 diabetes mellitus (HCC); Chronic atrial fibrillation (HCC) Allergies Active Allergy Reactions Criticality Noted Date Comments Alendronate Sodium 06/24/2012 Burning sensation and difficulty breathing Proton Pump Inhibitors Hives 02/20/2002 nexium documented as of this encounter (statuses as of 06/30/2024) Medications Multiple Vitamin (DAILY VALUE MULTIVITAMIN) Tablet Take 1 Tablet by mouth in the morning. Active Fluticasone Propionate 50 MCG/ACT Nasal Suspension (Flonase)Indicatio ns:Chronic rhinitis Administer 2 Sprays into each nostril in the morning. 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 Sundays. Obtaining from [employer]. 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 IF NO RELIEF CALL 911 OR GO TO ER 25 Tablet 11 4 8:35 AM EDT 02/05/20 24 025 Active Additional Information Patient not taking.Reported on 06/19/2024 Sertraline HCl 50 MG Oral Tablet (Zoloft) [...] taking differently: 15 mgOral HS, Reported on 06/19/2024 Famotidine 40 MG Oral Tablet (Pepcid) Take 1 Tablet by mouth in the morning. 30 Tablet 1 4 3:28 PM EST 06/10/20 24 Active Albuterol Sulfate HFA 108 (90 Base) MCG/ACT Inhalation Aerosol SolutionIndication s:Bronchitis, complicated Inhale 2 Puffs by mouth 4 times daily 54 g 3 4 9:28 AM EDT 02/06/20 24 024 Discontinu ed(Medicat ion List Clean Up) Cephalexin 500 MG Oral Capsule Take 1 Capsule by mouth in the morning and 1 Capsule at noon and 1 Capsule before bedtime. Do all this for 10 days. 30 Capsule 4 3:28 PM EST 06/10/20 024 documented as of this encounter (statuses as of 06/30/2024) Active Problems Problem Noted Date Diagnosed Date [...] artery disease of n ative artery of peoria heart with stable angina pectoris 12/08/2020 Assessment [...] Lipid Taxonomy. 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 0 05/03/2005 documented as of this encounter (statuses as of 06/30/2024) Resolved Problems Problem Noted Date Diagnosed Date [...] as of this encounter (statuses as of 06/30/2024) Immunizations Name Administration Dates Next Due COVID-19 [...] Sign Reading Time Taken Comments Blood Pressure 112/62 06/10/2024 11:12 AM EST Pulse 98 06/10/2024 11:12 AM EST Temperature 35.8 C (96.4 F) 06/10/2024 11:[address] Respiratory Rate 16 06/10/2024 11:12 AM EST Oxygen Saturation 95% 06/10/2024 11:12 AM EST Inhaled Oxygen Concentration - - Weight 95.3 kg (210 lb) 06/10/2024 11:12 AM EST Height 165.1 cm (5' 5") 06/10/2024 11:12 AM EST Body Mass Index 34.95 06/10/2024 11:12 AM EST documented in this encounter [...] Selin Park RN documented in this encounter Patient Instructions * Patient Instructions* Marilin Perkins, MED ASSIST - 06/10/2024 11:17 AM EST ~~PATIENT INSTRUCTIONS FOR SHINGRIX VACCINE~~ Possible side effects of Shingrix vaccine, (shingles), are usually mild and can include: 1. Soreness or redness at injection site 2. Low grade fever 3. Body aches You may use a fever / pain reducing medication as needed for these symptoms. LET YOUR DOCTOR KNOW IMMEDIATELY IF YOU HAVE DIFFICULTY BREATHING OR SWALLOWING, EXPERIENCE ITCHINGOF FEET OR HANDS, HAVE SWELLING OF EYES, FACE OR INSIDE OF NOSE. ~~PATIENT INSTRUCTIONS FOR SHINGRIX VACCINE~~ Possible side effects of Shingrix vaccine, (shingles), are usually mild and can include: 1. Soreness or redness at injection site 2. Low grade fever 3. Body aches You may use a fever / pain reducing medication as needed for these symptoms. LET YOUR DOCTOR KNOW IMMEDIATELY IF YOU HAVE DIFFICULTY BREATHING OR SWALLOWING, EXPERIENCE ITCHINGOF FEET OR HANDS, HAVE SWELLING OF EYES, FACE OR INSIDE OF NOSE. documented in this encounter Progress Notes * Alfa Jaramillo MD - 06/10/2024 11:30 AM EST Subjective: Graciela Mobley is a 74 year old female here today for Chief Complaint Patient presents with Acute Many issues. Pt isn't able to sleep well at night and isn't eating properly. stating she is vomiting more often and "just isn't doing well." Immunizations Shingrix Here for acute visit. Stomach - upset. Months. Some emesis. Stomach worse with spices, tomatoes. Lack of appetite and change of taste Bowels ok Ozempic 2 mg - 2 years Increased belching. No edema Coughing up dark yellow phlegm Poor appetite Weight gain Unstable on feet - several falls. Poor sleep Past Medical History: Diagnosis Date Asthma with COPD (chronic obstructive pulmonary disease) (HCC) Atrial fibrillation (HCC) Benign neoplasm of colon 03/16/2009 adenomatous polyp--repeat 6 months Benign neoplasm of colon 12/09/2009 adenomatous polyps repeat 6 months Benign neoplasm of colon 08/08/2011 Adenomatous polyp Breast cancer (HCC) 2015 Left breast cancer- invasive ductal carcinoma Carpal tunnel syndrome 10/11/2009 Cervical spinal stenosis 08/21/2008 Coronary artery disease DM type 2, goal A1c below 7 1989 Dyslipidemia, goal LDL below 100 07/15/2009 Per Lipid Taxonomy. 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 performed by Kenny Archibald DPM at OR [facility] ARTHROPLASTY KNEE TOTAL Right 05/2016 Dr Reynoso BX LYMPH NODE DEEP AXIL Left 04/07/2015 BIOPSY LYMPH NODE DEEP AXILLARY OPEN performed by Buffy Castro MD at OR [facility] CARPAL TUNNEL SURGERY 10/15/2009 NEUROPLASTY MEDIAN NERVE AT CARPAL TUNNEL performed by CHELSI DICKERSON at OR [facility] CARPAL TUNNEL SURGERY 01/07/2010 NEUROPLASTY MEDIAN NERVE AT CARPAL TUNNEL performed by CHELSI DICKERSON at OR [facility] COLONOSCOPY 12/09/2009 adenomatous polyps repeat 6 months [...] performed by Anselmo Sung MD at ENDOSCOPY [facility] COLONOSCOPY, DIAGNOSTIC (RECTUM) 03/21/2018 adenomatous polyp, diverticulosis, repeat 2 yrs/COLONOSCOPY FLEXIBLE PROXIMAL DIAGNOSTIC performed by Anselmo Sung MD at ENDOSCOPY [facility] COLONOSCOPY, DIAGNOSTIC (RECTUM) 01/15/2014 COLONOSCOPY FLEXIBLE PROXIMAL DIAGNOSTIC performed by Anselmo Sung MD at ENDOSCOPY [facility] COLONOSCOPY, DIAGNOSTIC (RECTUM) 11/16/2020 Hemorrhoids, diverticulosis sigmoid colon, multi polyps / biopsy benign adenomatous polyps / 1 yearrecall / COLONOSCOPY FLEXIBLE PROXIMAL DIAGNOSTIC performed by Anselmo Sung MD at ENDOSCOPY [facility] COLONOSCOPY, DIAGNOSTIC (RECTUM) 09/18/2023 multiple small and large mouthed diverticula/biopsies show adenomatous polyps/recall 10 years/COLONOSCOPY FLEXIBLE PROXIMAL DIAGNOSTIC performed by Anselmo Sung MD at ENDOSCOPY [facility] COLONOSCOPY/REMOVE LESION 03/16/2009 repeat 6 months CORONARY ANGIOGRAPHY W/LEFT HEART CATH 11/12/2023 CORONARY ANGIOGRAPHY W/LEFT HEART CATH performed by Huey Barrera MD at CARDIAC LABS [facility] DILATION AND CURETTAGE (D&C) 1996 D&C ENDO DECOMPRESS SPINAL CORD W/LAMINOTOMY, CERVICAL 07/13/2010 LAMINECTOMY DECOMPRESSION SPINAL CORD POSTERIOR CERVICAL performed by CHELSI DICKERSON at OR [facility] IDENTIFY SENTINEL NODE, RADIOACTIVE TRACER Left 04/07/2015 INJECTION PROCEDURE FOR IDENTIFICATION SENTINEL NODE performed by Buffy Castro MD at OR [facility] KNEE ARTHROSCOPY, DIAGNOSTIC 12/2012 Left [...] performed by Buffy Castro MD at OR [facility] NECK SPINE FUSION (CERV, BELOW C2) 08/21/2008 ARTHRODESIS SPINE ANTERIOR CERVICAL performed by CHELSI DICKERSON at OR [facility] NECK SPINE FUSION (CERV, BELOW C2) 07/13/2010 ARTHRODESIS SPINE POSTERIOR CERVICAL performed by CHELSI DICKERSON at OR [facility] RADIATION THERAPY MANAGEMENT Left 07/10/2015 REMOVE NECK SPINE LAMINA, 1-2 SEGS 07/13/2010 LAMINECTOMY POSTERIOR CERVICAL ONE OR TWO VERTEBRAL SEGMENTS performed by CHELSI DICKERSON at OR [facility] SENTINEL LYMPH NODE BIOPSY PERFORMED Left 04/07/2015 SPINE SEG FIX, POST, 3-6 SEG, INSERT 07/13/2010 POSTERIOR SPINE SEGMENTAL INSTRUMENTATION 3 TO 6 PSF performed by CHELSI DICKERSON at OR [facility] Review of patient's allergies indicates: Allergen Reactions Alendronate Sodium Burning sensation and difficulty breathing Proton Pump Inhibitors Hives nexium Current Outpatient Medications Medication Sig Dispense Refill Fluticasone Propionate 50 MCG/ACT Nasal Suspension (Flonase) [...] skin. 310 units in pump. Getting from [employer] Aspirin 81 MG Oral Tablet Delayed [...] MCG Oral Tablet Take by mouth daily. Ozempic (2 MG/DOSE) 8 MG/3ML Subcutaneous Solution Pen-injector (Semaglutide (2 MG/DOSE)) Inject 2 mg under the skin once a week. Sundays. Obtaining from [employer]. -- ON HOLD per MTM as of 06/11/24 (Patient not taking: Reported on 06/19/2024) Nitroglycerin 0.3 MG Sublingual Tablet Sublingual (Nitrostat) PLACE 1 TABLET UNDER THE TONGUE EVERY5 MINUTES UP TO 3 DOSES NEEDED FOR CHEST PAIN. IF NO RELIEF CALL 911 OR GO TO ER (Patient not taking: Reported on 06/19/2024) 25 Tablet 11 Sertraline HCl 50 MG [...] mouth in the morning. 30 Tablet 1 Multiple Vitamin (DAILY VALUE MULTIVITAMIN) Tablet Take 1 Tablet by mouth in the morning. Zoster Vac Recomb Adjuvanted 50 MCG/0.5ML Intramuscular Suspension Reconstituted (Shingrix) Inject into a large muscle 0.5 mL 0 No current facility-administered medications for this visit. Objective: BP 112/62 | Pulse 98 | Temp 96.4 F (35.8 C) (Tympanic) | Resp 16 | Ht 5' 5" (1.651 m) | Wt 210 lb (95.3 kg) | LMP 06/06/2001 | SpO2 95% | BMI 34.95 kg/m | BSA 2.09 m GEN: NAD HEENT: Benign NECK: Supple with no LAD, TM, JVD CHEST: CTA B CV: RRR ABD: Soft, NT/ND, No HSM, NABS EXT: No c,c,e Assessment and Plan: Bronchitis, complicated (Primary) COPD, moderate (HCC) -cephalexin. Continue all routine treatments. Call for new or worsening symptoms. Diabetic polyneuropathy associated with type 2 diabetes mellitus (HCC) Chronic atrial fibrillation (HCC) GI symptoms - abd pain, nausea, vomiting. - Famotidine 40 MG Oral Tablet (Pepcid); Take 1 Tablet by mouth in the morning. -symptoms most likely relate to diabetic gastroparesis. Reviewed recommendations for dietary change. Discussed tests that are available which she chooses to decline for now. Will try famotidine to help with the gastroesophageal reflux symptoms. Call for new or worsening symptoms Follow Up: Return in about 3 weeks (around 07/01/2024) for Natalia or I for follow up. | For: Natalia or I for follow up | Check-out note: Will need to send to me if she wishes to see me for follow up 35 min with pt and chart review. Alfa Jaramillo MD * Marilin Perkins MED ASSIST - 06/10/2024 11:17 AM EST . documented in this encounter Nursing Notes * Marilin Perkins MED ASSIST - 06/10/2024 11:16 AM EST The patient has been properly identified by confirmation of name and date of . Chief Complaint Patient presents with Acute Many issues. Pt isn't able to sleep well at night and isn't eating properly. stating she is vomiting more often and "just isn't doing well." documented in this encounter Plan of Treatment Upcoming Encounters Date Type Department Care Team (Late st Contact Info) Description 07/09/2024 11:10 AM EST [place], [place] [facility] [address] [place] [phone] [facility] [address] [place] [address] 07/09/2024 11:20 AM EST Office Visit Pharmacy, [facility] [address] [facility] [place] [address] [facility] [address] [facility] [place] [address] 07/09/2024 12:00 PM EST Office Visit [facility], [place] [facility] [place] [phone] Alfa Jaramillo MD [address] [facility] [place] [address] 07/17/2024 9:00 AM EST Office Visit Cardiology, [facility] [address] [facility] [place] [address] Nesha Denney CRNP [address] [facility] [place] [address] 07/18/2024 8:30 AM EST [facility] [address] [facility] [place] [address] Rosalind Smith, RN [address] [facility] [place] [address] 09/05/2024 9:30 AM EST Office Visit Podiatry [address] [place] [phone] Kenny Archibald, [facility] [address] [place] [address] 11/10/2024 11:00 AM EDT [facility] Visit [facility] [address] [facility] [phone] Natalia Heller PA-C [address] [place] [address] Scheduled Procedures Name Priority Associated Diagnoses Date/Ti [...] D LEVEL ONCE IN A LIFETIME-USE SMARTSET# [id number] Completed 05/09/2024, 06/18/2020, 07/25/2019, Additional history exists [...] this encounter Medical Devices Implanted Type Area Access Control Officer Device Identifier Shelf Expiration Date Model / Serial / Lot Graft Cervical 6x8 [id number] - [id number] Implanted:Qt y: 2 on 08/21/2008 at OR [facility] Tissue - Human Spine Cervical [employer] [id number] / / Screw Spine 14mm [id number] - [id number] Implanted:Qt y: 2 on 08/21/2008 at OR [facility] N/A: Spine Cervical [employer] 8-50-014 / / Depuy Casey 14 Mm Sd Con Scr Implanted:Qt y: 2 on 08/21/2008 at OR [facility] N/A: Spine Cervical [employer] 860-014 / / Description:Depuy skyline 14 mm SD con SCR 34 Mm Plate Implanted:Qt y: 1 on 08/21/2008 at OR [facility] N/A: Spine Cervical [id number] / / Description:34 mm Depuy plat e 14 Mm Variable Rescue Implanted:Qt y: 2 on 08/21/2008 at OR [facility] N/A: Spine Cervical 854-014 / / Description:14 mm variable r escue Screw 3.5x14 Mntr Fa [id number] - [id number] Implanted:Qt y: 10 on 07/13/2010 at OR [facility] N/A: Spine Cervical JN[employer] : [employer] [id number] / / Devaughn 3.3l029or [id number] - [id number] Implanted:Qt y: 1 on 07/13/2010 at OR [facility] N/A: Spine Cervical JN[employer] : [employer] [id number] / / Screw Inner Mntr [id number] - [id number] Implanted:Qt y: 8 on 07/13/2010 at OR [facility] N/A: Spine Cervical [employer] : [employer] [id number] / / Nut Outer Xcon [id number] - [id number] Implanted:Qt y: 2 on 07/13/2010 at OR [facility] N/A: Spine Cervical [employer] : [employer] [id number] / / Screw Inner Xcon [id number] - [id number] Implanted:Qt y: 2 on 07/13/2010 at OR [facility] N/A: Spine Cervical JN[employer] : [employer] [id number] / / Plate 35mm Xcon [id number] - [id number] Implanted:Qt y: 1 on 07/13/2010 at OR [facility] N/A: Spine Cervical [employer] : [employer] [id number] / / documented as of this encounter Visit Diagnoses Diagnosis COPD, moderate (HCC)- Primary Chronic airway obstruction, not elsewhere classified Chronic atrial fibrillation (HCC) Atrial fibrillation 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 stable angina pectoris (HCC) DM (diabetes mellitus) type II, controlled, with peripheral vascular disorder (HCC) Advanced care planning/counseling discussion Other specified counseling Bronchitis, complicated- Primary Bronchitis, not specified as acute or chronic COPD, moderate (HCC) Chronic airway obstruction, not elsewhere classified Need for vaccination for zoster Need for prophylactic vaccination and inoculation against other viral diseases Diabetic polyneuropathy associated with type 2 diabetes mellitus (HCC) Chronic atrial fibrillation (HCC) Atrial fibrillation documented [...] patient have Health Care Power of Director Experimental Medicine? No * Full Code Date Activated Date [...] Power of Attor kim? No Care Teams Thermograph Operator Relationship Specialty Start Date End Date Natalia Heller PA-C [address] [facility] [place] [id number] PCP - General Physician Blow Torch Burner 01/06/24 documented as of this encounter
--- OUTSIDE RECORDS SUMMARY | 2024-09-05 13:23 | External Medical Summary | Summary of Care ---
Author Name Unknown Organization [facility] [address] [address] Phone [phone] Care Team Providers Care Laser Technician Name Role Phone Natalia Heller PA-C Primary Care Provider [phone] Encounter Details Date Type Department Care Team (Late st Contact Info) Description 06/12/2024 Population Health External Data Unspecified Department Allergies Active Allergy Reactions Criticality Noted Date Comments Alendronate Sodium 06/24/2012 Burning sensation and difficulty breathing Proton Pump Inhibitors Hives 02/20/2002 nexium documented as of this encounter (statuses as of 06/19/2024) Medications Multiple Vitamin (DAILY VALUE MULTIVITAMIN) Tablet Take 1 Tablet by mouth in the morning. Active Fluticasone Propionate 50 MCG/ACT Nasal Suspension (Flonase)Indicatio ns:Chronic rhinitis Administer 2 Sprays into each nostril in the morning. 16 g 1 11/02/19 23 Active Warfarin Sodium 5 MG Oral Tablet (Coumadin)Indicati ons:FCI current use of anticoagulant therapy,Deep vein thrombosis [...] :HTN, goal below 130/80,Coronary artery disease involving quinault coronary artery of quinault heart without angina pectoris TAKE ONE TABLET [...] skin once a week. Sundays. Obtaining from [employer]. -- ON HOLD per MTM as of 06/11/24 Active Nitroglycerin 0.3 MG Sublingual Tablet Sublingual (Nitrostat)Indicat ions:Coronary artery disease of quinault artery of quinault heart with stable angina pectoris (HCC) PLACE 1 TABLET UNDER THE TONGUE EVERY 5 MINUTES UP TO 3 DOSES NEEDED FOR CHEST PAIN. IF NO RELIEF CALL 911 OR GO TO ER 25 Tablet 11 02/08/2024 8:35 AM EDT 02/05/20 24 025 Active Albuterol Sulfate HFA 108 (90 Base) MCG/ACT Inhalation Aerosol SolutionIndication s:Bronchitis, complicated Inhale 2 Puffs by mouth 4 times daily 54 g 3 02/08/2024 9:28 AM EDT 02/06/20 24 Active Sertraline HCl 50 MG Oral [...] all this for 10 days. 30 Capsule 06/11/2024 3:28 PM EST 06/10/20 24 024 Active Famotidine 40 MG Oral Tablet (Pepcid) Take 1 Tablet by mouth in the morning. 30 Tablet 1 06/11/2024 3:28 PM EST 06/10/20 24 Active documented as of this encounter (statuses as of 06/19/2024) Active Problems Problem Noted Date Diagnosed Date [...] artery disease of n ative artery of quinault heart with stable angina pectoris 12/08/2020 Assessment [...] as of this encounter (statuses as of 06/19/2024) Resolved Problems Problem Noted Date Diagnosed Date [...] as of this encounter (statuses as of 06/19/2024) Immunizations Name Administration Dates Next Due COVID-19 [...] Description 06/19/2024 4:00 PM EST Home Visit [facility] [address] [facility] [place] [address] Rosalind Smith RN [address] [place] [address] 06/25/2024 11:50 AM EST Anticoagulation Pharmacy, [place] [address] [place] [facility] [place] [address] [place], [facility] [address] [place] [facility] [place] [address] 07/09/2024 11:10 AM EST Anticoagulation Pharmacy, [place] [address] [place] [facility] [place] [address] [place], [facility] [address] [place] [facility] [place] [address] 07/09/2024 11:20 AM EST Office Visit Pharmacy, [place] [address] [place] [facility] [place] [address] [place], [facility] [address] [place] [facility] [address] 07/09/2024 12:00 PM EST Office Visit [facility] [address] [facility] [address] Al[facility]amillo [facility] [address] [facility] [address] 07/17/2024 9:00 AM EST Office Visit Cardiology, [facility] [address] [place] [address] Nesha Denney CRNP [address] [place] [address] 09/05/2024 9:30 AM EST Office Visit Podiatry [address] [place] [phone] Kenny Archibald, JASMINE [address] [place] [address] 11/10/2024 11:00 AM EDT Office Visit Family [facility] [address] [place] [address] Natalia Heller PALoiC [address] [place] [address] Scheduled Procedures Name Priority Associated Diagnoses Date/Ti [...] 09/19/2022, Additional history exists GFR 05/09/2025 05/09/2024, 0503/2024, 11/23/2023, Additional history exists Diabetic Eye Exam [...] D LEVEL ONCE IN A LIFETIME-USE SMARTSET# 47430 Completed 05/09/2024, 06/18/2020, 07/25/2019, Additional history exists [...] this encounter Medical Devices Implanted Type Area Cashier Courtesy Booth Device Identifier Shelf Expiration Date Model / Serial / Lot Graft Cervical 6x8 [id number] - [id number] Implanted:Qt y: 2 on 08/21/2008 at [place] [facility] Tissue - Human Spine Cervical [employer] [id number] / / Screw Spine 14mm [id number] - [id number] Implanted:Qt y: 2 on 08/21/2008 at [place] [facility] N/A: Spine Cervical [employer]SON [employer] CARSON DEPUY 50 / / Depuy Magazine 14 Mm Sd Con Scr Implanted:Qt y: 2 on 08/21/2008 at [place] [facility] N/A: Spine Cervical [employer] CAR[employer] DEPUY [id number] / / Description:Depuy skyline 14 mm SD con SCR 34 Mm Plate Implanted:Qt y: 1 on 08/21/2008 at [place] [facility] N/A: Spine Cervical / / Description:34 mm Depuy plat e 14 Mm Variable Rescue Implanted:Qt y: 2 on 08/21/2008 at [place] [facility] N/A: Spine Cervical / / Description:14 mm variable r escue Screw 3.5x14 Mntr Fa [id number] - [id number] Implanted:Qt y: 10 on 07/13/2010 at [place] [facility] N/A: Spine Cervical JNJ : [employer] [id number] / / Deavughn [id number] - [id number] Implanted:Qt y: 1 on 07/13/2010 at [place] [facility] N/A: Spine Cervical JNJ : [employer] [id number] / / Screw Inner Mntr [id number] - [id number] Implanted:Qt y: 8 on 07/13/2010 at [place] [facility] N/A: Spine Cervical JNJ : [employer] [id number] / / Nut Outer Xcon [id number] - [id number] Implanted:Qt y: 2 on 07/13/2010 at [place] [facility] N/A: Spine Cervical JNJ : [employer] [id number] / / Screw Inner Xcon [id number] - [id number] Implanted:Qt y: 2 on 07/13/2010 at [place] [facility] N/A: Spine Cervical JNJ : [employer] [id number] / / Plate 35mm Xcon [id number] - [id number] Implanted:Qt y: 1 on 07/13/2010 at [place] [facility] N/A: Spine Cervical JNJ : [employer] [id number] / / documented as of this encounter [...] the patient have Health Care Power of Veterinary Virologist? No * Full Code Date Activated Date [...] Power of Attor kim? No Care Teams Laser Technician Relationship Specialty Start Date End Date aNtalia Heller PA-C [address] [facility] [place] [address] PCP - General Physician College Teacher 01/06/24 documented as of this encounter
--- OUTSIDE RECORDS SUMMARY | 2024-09-05 13:23 | External Medical Summary | Summary of Care ---
Author Name Unknown Organization [facility] Address [address] [facility] [place] [address] Phone [phone] Care Team Providers Care Director Of Operations Home Health Name Role Phone Natalia Heller PA-C Primary Care Provider [phone] Reason for Visit * Reason Comments Dosage Adjustment In Person (Anticoag Cl inic) Diabetes Follow-Up Insulin Pump Encounter Details Date Type Department Care Team (Late st Contact Info) Description 06/11/2024 11:00 AM EST Office Visit Pharmacy, [place] [address] [place] [address] [facility] [address] [place] [address] Type 2 diabetes mellitus with foot ulcer, with long-term current use of insulin ([facility])*; DM (diabetes mellitus) type II, controlled, with [...] Warfarin Sodium 5 MG Oral Tablet (Coumadin)Indication s:long-term current use of anticoagulant therapy,Deep vein thrombosis (DVT) (HCC) TAKE ONE TABLET TO ONE AND ONE-HALF TABLET BY MOUTH EVERY DAY DIRECTED BY [facility] 135 Tablet 3 09/13/2023 5 Active Accu-Chek Guide In Vitro Strip (Glucose Blood)Indications:Ty pe 2 diabetes mellitus with foot ulcer, with long-term current use of insulin ([facility]),DM (diabetes mellitus) type II, controlled, with peripheral vascular disorder ([facility]) Use to test blood glucose 4 times daily. E11.9 400 Strip 3 10/04/2023 Active Accu-Chek Guide Me w/Device KitIndications:Type 2 diabetes mellitus with foot ulcer, with long-term current use of insulin ([facility]),DM (diabetes mellitus) type II, controlled, with peripheral vascular disorder ([facility]) Use as directed. 10/04/2023 Active Accu-Chek Softclix LancetsIndications:T ype 2 diabetes mellitus with foot ulcer, with long-term current use of insulin ([facility]),DM (diabetes mellitus) type II, controlled, with peripheral vascular disorder ([facility]) Use to test blood glucose 4 [...] [place], goal below 130/80,Coronary artery disease involving mechoopda coronary artery of mechoopda heart without angina pectoris TAKE ONE TABLET BY MOUTH EVERY MORNING 90 Tablet 3 01/15/2024 5 Active metFORMIN HCl 1000 MG Oral Tablet (Glucophage)Indicati ons:DM type 1 causing neurological disease, 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 Active Ozempic (2 MG/DOSE) 8 MG/3ML Subcutaneous Solution Pen-injector (Semaglutide (2 MG/DOSE)) Inject 2 mg under the skin once a week. Sundays. Obtaining from [employer]. 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 IF NO RELIEF CALL 911 OR GO TO ER 25 Tablet 02/05/2024 5 Active Albuterol Sulfate HFA 108 [...] this for 10 days. 30 Capsule 06/10/2024 Active Famotidine 40 MG Oral Tablet (Pepcid) [...] artery disease of n ative artery of mechoopda heart with stable angina pectoris 12/08/2020 Last [...] 6 months Hypopotassemia 08/22/2008 07/17/2011 [facility] other surgery 08/20/2008 07/17/2011 Statin intolerance [...] this encounter Progress Notes * Shanthi Franks, [facility] - 06/11/2024 10:51 AM EST Images from the original note were not included. Medication Therapy Disease Management Clinic - Diabetes Management Progress Note Graciela Mobley, identified by name and date of , is a 74 year old female being seen for diabetes management/education. Patient presents for return diabetic visit. DIABETES: Current diabetic medications: Metformin 1000mg twice daily Ozempic 2 mg once weekly- Sundays GFR 74 as of 08/30/23 Medtronic 780G Insulin Pump (Serial Number: [id number]) Infusion Set: Quick set Insulin: Novolog Basal Rate: midnight to 6am: 7.0 units/hour 6am to noon: 7.5 units/hour noon to midnight 8.0 units/hour Bolus: 25 units with breakfast, 45 [...] BID Medication Injection Site: Abdomen Lifestyle: Diet: unchanged Glucose Review/SMBG: Readings obtained from patient device Hypoglycemia: Does your blood sugar go below 70 mg/dL? No Hyperglycemia symptoms present: none Recent Labs Units 05/09/24 0911 05/09/24 0823 11/16/23 0000 HEMOGLOBIN A1C - [facility] % 11.1* -- -- HEMOGLOBIN, [id number] LAB -- -- 10.4* HEMOGLOBIN A1C POCT - [facility] % -- 11.2* -- Recent Labs Units 05/09/24 0911 12/12/23 1523 11/23/23 1023 ESTIMATED GLOMERULAR FILTRATION RATE - [facility] mL/min 75 64 70 CREATININE - [facility] mg/dL 0.8 0.9 0.9 HYPERTENSION: Patient on ACEi/ARB: no, indicated per UACR, but BP trends low BP Readings from Last 3 Encounters: 06/10/24 112/62 05/19/24 118/62 05/09/24 118/62 Blood pressure at goal: yes HYPERLIPIDEMIA: Recent Labs Units 11/13/23 0431 10/19/23 1023 01/02/23 1410 LDL CHOLESTEROL (CALCULATED) - [facility] mg/dL 51 94 83 Does patient have clinical ASCVD? Yes, is patient LDL less than 55 mg/dL? Yes HEALTH MAINTENANCE REVIEW: Health Maintenance Due Topic Date Due Alpha-1 Antitrypsin Never done *BISPHONATE OR OTHER ACCEPTABLE MEDICATION NEEDED FOR OSTEOPOROSIS (REFER TO SMARTSET #1146) Never done Zoster Vaccines (2 of 3) 04/20/2017 Diabetic Eye Exam 10/28/2021 Diabetic Foot Exam 01/18/2022 COVID-19 Vaccine ( season) 2023 Albumin/Creatinine Ratio 01/03/2024 ASSESSMENT & PLAN: ICD-10-CM 1. Type 2 diabetes mellitus with foot ulcer, with long-term current use of insulin ([facility]) E11.621 L97.509 Z79.4 2. DM (diabetes mellitus) type II, controlled, with peripheral vascular disorder ([facility]) E11.51 Considerations: - over PACE income as of 2021 - patient approved for NovoNordisk PAP - omnipod not an option due to cost (on GHP Gold, would push to jorgito gomez immediately) + pt's current insulin requirement. Glycemic control is unstable and not at goal Patient agreeable to adjust medications as noted below. Basal settings increased from noon to midnight, as she is rising during the day even without eating. ICR continued although patient does not count carbs. Fixed dose continued, but pt advised to take 15 units with baked goods. ISF continued and patient was shown how to give a correction dose on her pump. She is using about 300 units per day. She has encouraged to eat veggies with every meal, and eat those first before indulging on other components of meal. Lately her appetite is worse and has been having N/V-- Dr. Jaramillo is concerned the ozempic is causing this, so we will hold the ozempic for 1 month and see how patient feels. Will try to use a dexcom again-- tomorrow health order placed. Patient to SMBG at least 4 times daily, before each meal and at bedtime. Patient aware to contact clinic if any hypoglycemia before next visit. Reviewed rule of 15s. Reviewed appropriate management of hyperglycemia as noted in pump start documentation. MEDICATION CHANGES: Diabetic Medications: Metformin 1000mg twice daily HOLD Ozempic 2 mg once weekly- Sundays GFR 74 as of 08/30/23 Medtronic 780G Insulin Pump (Serial Number: [id number]) Infusion Set: Quick set Insulin: Novolog Basal [...] insulin needles Toujeo U300 60 units BID FOLLOW UP: Return to clinic in 4 weeks I spent a total of 30-39 minutes (exact time 36 mins) on the date of service in preparation, delivery, and documentation of the care provided to Graciela Mobley excluding any time spent in the performance of separately billed services. Shanthi Franks [facility] Clinical Pharmacist - Carpet Or Rug Layer Helper Medication Therapy Management Clinic 06/11/24, 10:54 AM documented in this encounter Plan of Treatment Upcoming Encounters Date Type Department Care Team (Late st Contact Info) Description 06/19/2024 4:00 PM EST Home Visit [facility] [address] [facility] [place] [address] Rosalind Smith RN [address] [facility] [place] [address] 06/25/2024 11:50 AM EST Anticoagulation Pharmacy, [place] [address] [facility], [place] [address] [facility] [address] [facility], [place] [address] 07/09/2024 11:10 AM EST Anticoagulation Pharmacy, [place] [address] [place] [address] [facility] [address] [place] [address] 07/09/2024 11:20 AM EST Office Visit Pharmacy, [place] [address] [place] [address] [facility] [address] [place] [address] 07/09/2024 12:00 PM EST Office Visit [facility] [address] [facility] [address] Alfa [facility] [address] [facility] [address] 07/17/2024 9:00 AM EST Office Visit Cardiology, [facility] [address] [facility] [place] [address] Nesha Denney CRNP [address] [place] [address] 09/05/2024 9:30 AM EST Office Visit Podiatry [address] [place] [phone] Kenny Archibald, DPM [address] [place], [place] [address] 11/10/2024 11:00 AM EDT Office Visit Family [facility] [address] [place] [address] Natalia Heller PALoiC [address] [place] [address] Scheduled Procedures Name Priority Associated Diagnoses Date/Ti [...] D LEVEL ONCE IN A LIFETIME-USE SMARTSET# 60405 Completed 05/09/2024, 06/18/2020, 07/25/2019, Additional history exists [...] this encounter Medical Devices Implanted Type Area Pulping Machine Operator Device Identifier Shelf Expiration Date Model / Serial / Lot Graft Cervical 6x8 [id number] - [id number] Implanted:Qt y: 2 on 08/21/2008 at [facility] Tissue - Human Spine Cervical [employer] [id number] / / Screw Spine 14mm 014 - [id number] Implanted:Qt y: 2 on 08/21/2008 at OR [facility] N/A: Spine Cervical CARSON [employer] CARSON DEPUY [id number] / / Depuy Hagan 14 Mm Sd Con Scr Implanted:Qt y: 2 on 08/21/2008 at OR [facility] N/A: Spine Cervical [employer] DEPUY 60-014 / / Description:Depuy skyline 14 mm SD con SCR 34 Mm Plate Implanted:Qt y: 1 on 08/21/2008 at OR [facility] N/A: Spine Cervical / / Description:34 mm Depuy plat e 14 Mm Variable Rescue Implanted:Qt y: 2 on 08/21/2008 at [facility] N/A: Spine Cervical / / Description:14 mm variable r escue Screw 3.5x14 Mntr Fa [id number] - [id number] Implanted:Qt y: 10 on 07/13/2010 at [facility] N/A: Spine Cervical JNJ : [employer] [id number] / / Devaughn [id number] - [id number] Implanted:Qt y: 1 on 07/13/2010 at [facility] N/A: Spine Cervical JNJ : [employer] [id number] / / Screw Inner Mntr [id number] - [id number] Implanted:Qt y: 8 on 07/13/2010 at OR [facility] N/A: Spine Cervical JNJ : [employer] [id number] / / Nut Outer Xcon [id number] - [id number] Implanted:Qt y: 2 on 07/13/2010 at [facility] N/A: Spine Cervical JNJ : [employer] [id number] / / Screw Inner Xcon [id number] - [id number] Implanted:Qt y: 2 on 07/13/2010 at [facility] N/A: Spine Cervical JNJ : [employer] [id number] / / Plate 35mm Xcon [id number] - [id number] Implanted:Qt y: 1 on 07/13/2010 at [facility] N/A: Spine Cervical JNJ : [employer] [id number] / / documented as of this encounter [...] the patient have Health Care Power of Direct Casting Operator? No * Full Code Date Activated [...] Power of Attor kim? No Care Teams Director Of Operations Home Health Relationship Specialty Start Date End Date Natalia Heller PA-C [address] [facility] [place] [address] PCP - General Physician Emergency Communications Operator 01/06/24 documented as of this encounter
--- OUTSIDE RECORDS SUMMARY | 2024-09-05 13:23 | External Medical Summary | Summary of Care ---
Author Name Unknown Organization [facility] Address [address] [facility] [address] Phone [phone] Care Team Providers Care Physical Instructor Name Role Phone Natalia Heller PA-C Primary Care Provider [phone] Reason for Visit * Reason Comments Dosage Adjustment In Person (Anticoag Cl inic) Encounter Details Date Type Department Care Team (Latest Contact Info) Description 06/11/2024 10:50 AM EST Anticoagulation Pharmacy, [address] [address] [facility] [address] [place] [address] Anticoagulation management encounter*; History of DVT (deep [...] with long-term current use of insulin ([facility]),DM (diabetes mellitus) type II, controlled, with peripheral vascular disorder ([facility]) Use to test blood glucose 4 times daily. E11.9 400 Strip 3 10/04/2023 Active Accu-Chek Guide Me w/Device KitIndications:Type 2 diabetes mellitus with foot ulcer, with long-term current use of insulin ([facility]),DM (diabetes mellitus) type II, controlled, with peripheral vascular disorder ([facility]) Use as directed. 10/04/2023 Active Accu-Chek Softclix LancetsIndications:T ype 2 diabetes mellitus with foot ulcer, with long-term current use of insulin ([facility]),DM (diabetes mellitus) type II, controlled, with peripheral vascular disorder ([facility]) Use to test blood glucose 4 times daily. DX: E11.9 400 Each 3 10/04/2023 Active Rosuvastatin Calcium 20 MG Oral Tablet (Crestor)Indications :Dyslipidemia, goal LDL below 70 Take 1 Tablet by mouth in the morning. 90 Tablet 3 10/25/2023 Active Insulin Aspart 100 UNIT/ML Injection Solution (NovoLOG) Inject under the skin. 310 units in pump. Getting from [employer] PAP Active Aspirin 81 MG Oral Tablet [...] [place], goal below 130/80,Coronary artery disease involving [place] coronary artery of [place] heart without angina pectoris TAKE ONE TABLET [...] skin once a week. Sundays. Obtaining from [employer]. -- ON HOLD per MTM as of 06/11/24 Active Nitroglycerin 0.3 MG Sublingual Tablet Sublingual (Nitrostat)Indicatio ns:Coronary artery disease of [place] artery of [place] heart with stable angina pectoris (HCC) PLACE [...] artery disease of n ative artery of [place] heart with stable angina pectoris 12/08/2020 Last [...] Progress Notes * Shanthi Franks, [facility] - 06/11/2024 10:50 AM EST Images from the original note were not included. Medication Therapy Disease Management - Anticoagulation Patient: Graciela Mobley | : 1950 Subjective Patient-Reported Symptoms: Patient Findings Positives: Missed doses Negatives: Signs/symptoms of thrombosis, Signs/symptoms of bleeding, Change in health, Change in alcohol use, Change in activity, Upcoming invasive procedure, Extra doses, Change in medications, Change in diet/appetite, Bruising Objective Current Warfarin Dose As of 06/11/2024 Warfarin maintenance plan: 10 mg (5 mg x 2) every Sun, Karen; 5 mg (5 mg x 1) all other days INR Result As of 06/11/2024 INR goal: 2.0-3.0 INR used for dosin.3 (06/11/2024) Assessment & Plan Warfarin Plan As of 06/11/2024 Full warfarin instructions: 06/11: 15 mg; Otherwise 10 mg every Sun, Tue, Karen; 5 mg all other days Next INR check: 06/25/2024 Repeat PT/INR in 2 week(s) Weekly dose: increased Additional Dosing Information: Description I spent a total of 10-19 minutes (exact time 10 mins) on the date of service in preparation, delivery, and documentation of the care provided to Graciela Mobley excluding any time spent in the performance of separately billed services or time spent by another provider/QHP. Shanthi Franks [facility] Clinical Pharmacist 06/11/2024, 10:50 AM documented in this encounter Plan of Treatment Upcoming Encounters Date Type Department Care Team (Late st Contact Info) Description 06/19/2024 4:00 PM EST Home Visit [facility] [address] [facility] [place] [address] Rosalind Smith RN [address] [facility] [place] [address] 06/25/2024 11:50 AM EST Anticoagulation Pharmacy, [address] [place] [address] [facility] [place] [address] 07/09/2024 11:10 AM EST [address], [address] [address] [facility] [place] [facility] [place] [address] 07/09/2024 11:20 AM EST Office Visit Pharmacy, [address], [place] [address] [place] [address] [address] [facility] [place] [address] 07/09/2024 12:00 PM EST Office Visit [facility] [address] [place] [address] Alfa Jaramillo MD [address] [place] [address] 07/17/2024 9:00 AM EST Office Visit Cardiology, [facility] [address] [place] [address] Nesha Denney CRNP [address] [place] [address] 09/05/2024 9:30 AM EST Office Visit Podiatry [address] [place] [address] Kenny Archibald, [facility] [address] [place] [address] 11/10/2024 11:00 AM EDT Office Visit [address] [address] Natalia Heller, PALoiC [address] [place] [address] Scheduled Procedures Name Priority Associated Diagnoses Date/Ti [...] D LEVEL ONCE IN A LIFETIME-USE SMARTSET# 87076 Completed 05/09/2024, 06/18/2020, 07/25/2019, Additional history exists [...] this encounter Medical Devices Implanted Type Area Certified Art Therapist Device Identifier Shelf Expiration Date Model / Serial / Lot Graft Cervical 6x8 [id number] - [id number] Implanted:Qt y: 2 on 08/21/2008 at [facility] Tissue - Human Spine Cervical [employer] [id number] / / Screw Spine 14mm [id number] - [id number] Implanted:Qt y: 2 on 08/21/2008 at [place] [facility] N/A: Spine Cervical [employer]SON [employer] CARSON DEPUY 50-014 / / Depuy [place] 14 Mm Sd Con Scr Implanted:Qt y: 2 on 08/21/2008 at [place] [facility] N/A: Spine Cervical [employer] DEPUY 60-014 / / Description:Depuy skyline 14 mm SD con SCR 34 Mm Plate Implanted:Qt y: 1 on 08/21/2008 at [place] [facility] N/A: Spine Cervical / / Description:34 mm Depuy plat e 14 Mm Variable Rescue Implanted:Qt y: 2 on 08/21/2008 at [place] [facility] N/A: Spine Cervical [id number] / / Description:14 mm variable r escue Screw 3.5x14 Mntr Fa [id number] - [id number] Implanted:Qt y: 10 on 07/13/2010 at [place] [facility] N/A: Spine Cervical JNJ : ETH[employer]ON [employer] [id number] / / Devaughn [id number] - [id number] Implanted:Qt y: 1 on 07/13/2010 at [place] [facility] N/A: Spine Cervical JNJ : ETH[employer]ON [employer]ATIONS [id number] / / Screw Inner Mntr [id number] - [id number] Implanted:Qt y: 8 on 07/13/2010 at [place] [facility] N/A: Spine Cervical JNJ : ETH[employer] [id number] / / Nut Outer Xcon [id number] - [id number] Implanted:Qt y: 2 on 07/13/2010 at [place] [facility] N/A: Spine Cervical JNJ : ETH[employer]ON [employer] [id number] / / Screw Inner Xcon [id number] - [id number] Implanted:Qt y: 2 on 07/13/2010 at [place] [facility] N/A: Spine Cervical JNJ : Paradigm CARDIOCAILabsS [id number] / / Plate 35mm Xcon [id number] - [id number] Implanted:Qt y: 1 on 07/13/2010 at [facility] N/A: Spine Cervical JNJ : Paradigm CARDIOCAILabsS [id number] / / documented as of this encounter Procedures Procedure Name Priority Date/Time Associated Diagnosis Comments INR FINGERSTICK, POINT OF CARE STAT 06/11/2024 10:59 AM EST History of DVT (deep vein thrombosis) Chronic atrial fibrillation (HCC) Anticoagulation management encounter documented in this encounter Results * INR FINGERSTICK, POINT OF CARE (06/11/2024 10:59 AM EST) Fingerstick INR 1.3 INR 11:49 AM EST [facility] Blood 06/11/2024 10:5 9 AM EST 06/11/2024 11:49 AM EST Narrative [facility] - 06/11/2024 11:49 AM EST Therapeutic ranges for non-operative patients: Prophylaxsis/treatment of DVT: (Range:2.0-3.0) Treatment of pulmonary embolism:(Range:2.0-3.0) Prevention of systemic embolism from: -tissue heart valves -acute myocardial infarction -valvular heart disease -atrial fibrillation (Range: 2.0-3.0) Mechanical prosthetic valves: (Range: 2.5-3.5) Shanthi Franks [facility] POINT OF CARE TEST DOCKED DEVICE UNSOLICITED RESULTS [facility] [place] [address] documented in this encounter Visit Diagnoses Diagnosis Anticoagulation management [...] the patient have Health Care Power of Whitewasher? No * Full Code Date Activated Date [...] Power of Attor kim? No Care Teams Physical Instructor Relationship Specialty Start Date End Date Natalia Heller PA-C [address] [facility] [place] [address] PCP - General Physician Classified Ad Clerk 01/06/24 documented as of this encounter
--- OUTSIDE RECORDS SUMMARY | 2024-09-05 13:23 | External Medical Summary | Summary of Care ---
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 E11.9 400 Strip 3 03/19/2024 12:17 PM EDT 10/04/19 24 Active Accu-Chek Guide Me w/Device KitIndications:Typ e 2 diabetes mellitus with foot ulcer, with long-term current use of insulin ([facility]),DM (diabetes mellitus) type II, controlled, with peripheral vascular disorder ([facility]) Use as directed. 10/04/19 24 Active Accu-Chek Softclix LancetsIndications :Type 2 diabetes mellitus with foot ulcer, with long-term current use of insulin ([facility]),DM (diabetes mellitus) type II, controlled, with peripheral vascular disorder ([facility]) Use to test blood glucose [...] :HTN, goal below 130/80,Coronary artery disease involving [place] coronary artery of [place] heart without angina pectoris TAKE ONE TABLET [...] skin once a week. Sundays. Obtaining from [employer]. -- ON HOLD per MT as of 06/11/24 Active Nitroglycerin 0.3 MG Sublingual Tablet Sublingual (Nitrostat)Indicat ions:Coronary artery disease of [place] artery of [place] heart with stable angina pectoris (HCC) PLACE 1 TABLET UNDER THE TONGUE EVERY 5 MINUTES UP TO 3 DOSES NEEDED FOR CHEST PAIN. IF NO RELIEF CALL 911 OR GO TO ER 25 Tablet 11 02/08/2024 8:35 AM EDT 02/05/20 24 025 Active Additional Information Patient not taking.Reported on 06/19/2024 Albuterol Sulfate HFA 108 (90 Base) MCG/ACT [...] differently: 15 mgOral HS, Reported on 06/19/2024 Cephalexin 500 MG Oral Capsule Take 1 [...] disease of n ative artery of [place] heart with stable angina pectoris 12/08/2020 Assessment [...] Lipid Taxonomy. 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 (Household - for [...] Sign Reading Time Taken Comments Blood Pressure 110/64 06/19/2024 11:37 AM EST Pulse 80 06/19/2024 11:37 AM EST Temperature 36.9 C (98.5 F) 06/19/2024 11:[address] Respiratory Rate 18 06/19/2024 11:37 AM EST Oxygen Saturation 93% 06/19/2024 11:37 AM EST Inhaled Oxygen Concentration - - Weight - - Height - - Body Mass Index - - documented in this encounter Functional Status * Are you deaf or do you have serious difficulty hearing? Answer Date of Assessment Author No 05/02/2019 3:21 PM EDSelin Summers RN * Are you blind or do [...] Progress Notes * Rosalind Smith RN - 06/19/2024 11:23 AM EST Current Concerns: Pt seen for return RNCM visit Saw PCP recently - was having issues with nausea/poor appetite/constipation Took a stool softener and helped Ozempic is now on hold d/t nausea and also started using Famotidine States her stomach feels better now She reports she now has an appetite and is not getting sick anymore She does reports her blood sugars are higher - saw MTM and insulin drip was increased Has f/u with MTM in 3 weeks Pt reports blood sugars have been in the 300's at times, most of the time Pt was having cough with dark colored mucus when she saw provider so keflex was ordered She states the cough is improving and the mucus has lightened in color Has a few days left of abx Lungs are clear bilaterally Denies increased SOB Physical Exam: Physical Exam Constitutional: General: She is not in acute distress. Cardiovascular: Rate and Rhythm: Normal rate and regular rhythm. Pulmonary: Effort: Pulmonary effort is normal. Breath sounds: Normal breath sounds. Abdominal: Palpations: Abdomen is soft. Skin: General: Skin is warm and dry. Neurological: Mental Status: She is alert and oriented to person, place, and time. Review of Systems: Review of Systems Constitutional: Negative. HENT: Negative. Eyes: Negative. Respiratory: Positive for cough (light yellow mucus, improving) and shortness of breath (GARCIA at baseline). Cardiovascular: Negative. Gastrointestinal: Negative. Genitourinary: Negative. Musculoskeletal: Positive for arthralgias and gait problem. Skin: Negative. Psychiatric/Behavioral: Negative. Care Plan Goal Progress: GS - Patient/caregiver will verbalize an understanding of diagnosis, treatment and self management of chronic obstructive pulmonary disease (COPD) (Progressing) Start: 05/19/24 Expected End: 09/05/24 Orders Placed: No orders of the defined types were placed in this encounter. Medications Given: Care Gaps: Care Gaps Care gaps closed this contact:: Plan of Care (POC);Medications;Education (06/19/24 1140) Type of education: Clinical/disease (06/19/24 1140) Type of medication care gap: Medication adherence (06/19/24 1140) Type of plan of care (POC) care gap: Adjustment of plan of care (POC) and/or Integrated Care Plan (ICP);Education and review of exacerbation plan (06/19/24 1140) documented in this encounter Plan of Treatment Upcoming Encounters Date Type Department Care Team (Late st Contact Info) Description 06/25/2024 11:50 AM EST [facility] [place] [address] [facility] [address] [place], [facility] [address] [facility] [place] [address] 07/09/2024 11:10 AM EST Anticoagulation Pharmacy, [place] [address] [facility] [place] [address] [place] [facility] [address] [facility] [address] 07/09/2024 11:20 AM EST Office Visit Pharmacy, [place] [address] [facility] [address] [place], [facility] [address] [facility], [place] [address] 07/09/2024 12:00 PM EST Office Visit [address] [place] [address] Alfa Jaramillo MD [address] [facility] [address] 07/17/2024 9:00 AM EST Office Visit Cardiology, [facility] [address] [facility] [place] [address] Nesha Denney CRNP [address] [facility] [address] 07/18/2024 8:30 AM EST [facility] Visit [facility] [address] [facility] [place] [address] Rosalind Smith, RN [address] [facility] [address] 09/05/2024 9:30 AM EST Office Visit Podiatry [address] [place] [address] Kenny Archibald, JASMINE [address] [place] [address] 11/10/2024 11:00 AM EDT Office Visit [facility], [facility] [address] [facility] [address] Natalia Heller PA-C [address] [place] [address] Scheduled Procedures Name Priority Associated Diagnoses Date/Ti [...] D LEVEL ONCE IN A LIFETIME-USE SMARTSET# 37313 Completed 05/09/2024, 06/18/2020, 07/25/2019, Additional history exists [...] this encounter Medical Devices Implanted Type Area Photonics Engineering Technician Device Identifier Shelf Expiration Date Model / Serial / Lot Graft Cervical 6x8 [id number] - [id number] Implanted:Qt y: 2 on 08/21/2008 at [place] [facility] Tissue - Human Spine Cervical [employer] [id number] / / Screw Spine 14mm 50-014 - [id number] Implanted:Qt y: 2 on 08/21/2008 at [place] [facility] N/A: Spine Cervical CARSON [employer] CARSON DEPUY 50-014 / / Depuy Power 14 Mm Sd Con Scr Implanted:Qt y: 2 on 08/21/2008 at [place] [facility] N/A: Spine Cervical [employer] DEPUY 60-014 / / Description:Depuy skyline 14 mm SD con SCR 34 Mm Plate Implanted:Qt y: 1 on 08/21/2008 at [place] [facility] N/A: Spine Cervical / / Description:34 mm Depuy plat e 14 Mm Variable Rescue Implanted:Qt y: 2 on 08/21/2008 at [place] [facility] N/A: Spine Cervical 014 / / Description:14 mm variable r escue Screw 3.5x14 Mntr Fa [id number] - [id number] Implanted:Qt y: 10 on 07/13/2010 at [place] [facility] N/A: Spine Cervical JNJ : ETHICON CARDIOVATIONS [id number] / / Devaughn [id number] - [id number] Implanted:Qt y: 1 on 07/13/2010 at [place] [facility] N/A: Spine Cervical JNJ : ETHICON CARDIOVATIONS [id number] / / Screw Inner Mntr [id number] - [id number] Implanted:Qt y: 8 on 07/13/2010 at [place] [facility] N/A: Spine Cervical JNJ : ETHICON CARDIOVATIONS [id number] / / Nut Outer Xcon [id number] - [id number] Implanted:Qt y: 2 on 07/13/2010 at [place] [facility] N/A: Spine Cervical JNJ : ETHICON CARDIOVATIONS [id number] / / Screw Inner Xcon [id number] - [id number] Implanted:Qt y: 2 on 07/13/2010 at [place] [facility] N/A: Spine Cervical JNJ : ETHICON CARDIOVATIONS [id number] / / Plate 35mm Xcon [id number] - [id number] Implanted:Qt y: 1 on 07/13/2010 at [place] [facility] N/A: Spine Cervical JNJ : ETHICON CARDIOVATIONS [id number] / / documented as of this encounter [...] the patient have Health Care Power of Cashier Assistant? No * Full Code Date Activated Date [...] Power of Attor kim? No Care Teams Stamper Blocker Relationship Specialty Start Date End Date Natalia Heller PA-C [address] [facility] [place] [address] PCP - General Physician Freight Loader 01/06/24 documented as of this encounter
--- OUTSIDE RECORDS SUMMARY | 2024-09-05 13:23 | External Medical Summary | Summary of Care ---
Author Name Unknown Organization [facility] Address [address] [facility] [place] [address] Phone [phone] Care Team Providers Care Steam Gigger Name Role Phone Natalia Heller PA-C Primary Care Provider [phone] Encounter Details Date Type Department Care Team (Latest Contact Info) Description 06/11/2024 Medication Management Cece [facility] [address] [place] [address] [facility] [address] [place] [address] Referred for management of medication therapy* Allergies Active Allergy Reactions Criticality Noted Date [...] disorder ([facility]) Use as directed. 10/04/2023 Active Accu-Chek Softclix [...] skin. 310 units in pump. Getting from novonoTupaloisk PAP Active Aspirin 81 MG Oral Tablet [...] [place], goal below 130/80,Coronary artery disease involving [place] coronary artery of [place] heart without angina pectoris TAKE ONE TABLET [...] skin once a week. Sundays. Obtaining from [employer]. -- ON HOLD per MTM as of 06/11/24 Active Nitroglycerin 0.3 MG Sublingual Tablet Sublingual (Nitrostat)Indicatio ns:Coronary artery disease of [place] artery of [place] heart with stable angina pectoris (HCC) PLACE [...] artery disease of n ative artery of [place] heart with stable angina pectoris 12/08/2020 Last [...] Lipid Taxonomy. 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 Objective: Review of patient's allergies indicates: Allergen Reactions Alendronate Sodium Burning sensation and difficulty breathing Proton Pump Inhibitors Hives nexium Current Outpatient Medications - WARNING: List may be incomplete due to filtering Medication Sig Dispense Refill Cephalexin 500 MG Oral Capsule Take 1 Capsule by mouth in the morning and 1 Capsule at noon and 1 Capsule before bedtime. Do all this for 10 days. 30 Capsule 0 Famotidine 40 MG Oral Tablet (Pepcid) Take 1 Tablet by mouth in the morning. 30 Tablet 1 Mirtazapine 30 MG Oral Tablet (Remeron) Take 1 Tablet by mouth at bedtime. (Patient taking differently: Take 0.5 Tablets by mouth at bedtime.) 30 Tablet 0 Pregabalin 150 MG Oral Capsule (Lyrica) TAKE ONE CAPSULE BY MOUTH TWICE A DAY 180 Capsule 1 Sertraline HCl 50 MG Oral Tablet (Zoloft) TAKE 1 AND 1/2 TABLETS BY MOUTH AT BEDTIME 135 Tablet 1 Albuterol Sulfate HFA 108 (90 Base) MCG/ACT Inhalation Aerosol Solution Inhale 2 Puffs by mouth 4 times daily 54 g 3 Nitroglycerin 0.3 MG Sublingual Tablet Sublingual (Nitrostat) PLACE 1 TABLET UNDER THE TONGUE EVERY5 MINUTES UP TO 3 DOSES NEEDED FOR CHEST PAIN. IF NO RELIEF CALL 911 OR GO TO ER 25 Tablet 11 Ozempic (2 MG/DOSE) 8 MG/3ML Subcutaneous Solution Pen-injector (Semaglutide (2 MG/DOSE)) Inject 2 mg under the skin once a week. Sundays. Obtaining from [employer]. -- ON HOLD per [facility] as of 06/11/24 Vitamin B12 500 MCG Oral Tablet Take by mouth daily. metFORMIN HCl 1000 MG Oral Tablet (Glucophage) TAKE ONE TABLET BY MOUTH TWICE A DAY WITH FOOD 200 Tablet 3 Isosorbide Mononitrate ER 60 MG Oral Tablet Extended Release 24 Hour (Imdur) TAKE ONE TABLET BY MOUTH EVERY MORNING 90 Tablet 3 Metoprolol Succinate ER 50 MG Oral Tablet Extended Release 24 Hour (toPROL XL) TAKE ONE TABLET BY MOUTH TWICE A DAY 180 Tablet 3 Aspirin 81 MG Oral Tablet Delayed [...] Sunday, and Sunday only. 45 Capsule 3 Insulin Aspart 100 UNIT/ML Injection Solution (NovoLOG) Inject under the skin. 310 units in pump. Getting from [employer] PAP Rosuvastatin Calcium 20 MG Oral Tablet (Crestor) Take 1 Tablet by mouth in the morning. 90 Tablet 3 Accu-Chek Guide In Vitro Strip (Glucose Blood) Use to test blood glucose 4 times daily. E11.9 400 Strip 3 Accu-Chek Guide Me w/Device Kit Use as directed. Accu-Chek Softclix Lancets Use to test blood glucose 4 times daily. DX: E11.9 400 Each 3 Warfarin Sodium 5 MG Oral Tablet (Coumadin) TAKE ONE TABLET TO ONE AND ONE-HALF TABLET BY MOUTH EVERY DAY DIRECTED BY COUMADIN CLINIC 135 Tablet 3 Fluticasone Propionate 50 MCG/ACT Nasal Suspension (Flonase) Administer 2 Sprays into each nostril in the morning. 16 g 1 Multiple Vitamin (DAILY VALUE MULTIVITAMIN) Tablet Take 1 Tablet by mouth in the morning. Immunization History Administered Date(s) Administered COVID-19 mRNA, LNP-s, No Preserve, 2-Dose Series (Moderna) 09/15/2020, 10/13/2020 COVID-19, mRNA, LNP-s, PF, Booster, 100mcg/0.5mg (Moderna) 07/20/2021 Covid-19, Mrna, Lnp-s, Pf, Bivalent, 30 Mcg, IM, 12 yrs and above (Pfizer) 05/08/2022 Pneumococcal Conjugate Vacc, 13 Valent (Prevnar) 01/20/2016 Pneumococcal Polysaccharide PPV23 (Pneumovax) 06/06/2001, 09/18/2006, 01/15/2015 Season Influenza, Quad, PF, Adjuvanted, 65+ Yrs, IM (FLUAD) 06/18/2020 Seasonal Influenza Vac., MDV, IM, 0.5 mL (Fluzone) 06/06/2001, 05/26/2002, 07/16/2003, 07/04/2005, 06/07/2006, 05/20/2007, 07/07/2008, 06/07/2010, 05/22/2011, 04/30/2012, 05/05/2013, 05/22/2014, 06/09/2016 Seasonal Influenza Virus Vaccine, Unspecified Formulation 06/21/2017, 04/09/2018, 05/08/2019 Seasonal Influenza, High Dose, Trivalent, PF, IM (Fluzone HD) 04/15/2024 Seasonal Influenza, PF, 6 M & above, IM , (FluLaval or Fluzone) 06/21/2017, 04/09/2018, 05/08/2019 Seasonal Influenza, Quadrivalent Hd (Fluzone Hd) 05/08/2022, 04/04/2023 Seasonal Influenza, Quadrivalent, No Preserve, IM 05/20/2015 TD - Tetanus/Diptheria (ADULT) 02/09/1998 TD, Preservative Free 07/15/2008 TDAP (age 10 and older)(Boostrix) 09/15/2014 Varicella Zoster Vaccine (Adult) 02/23/2017 TMR Interventions Incomplete Encounter MTPs No medication therapy recommendations to display Complete Encounter MTPs No medication therapy recommendations to display Assessment & Plan Indication, effectiveness, safety and convenience of her medications were reviewed today. The patient's medical conditions were assessed, evaluated, and deemed meeting goals of drug therapy, with thefollowing exceptions. Additional Notes: none Summary Time Spent: 16-30 min Supervising pharmacist who provided the service: Adam Haskins Information Who was the recipient of the CMR service: beneficiary Language Template for the Patient Takeaway: Moroccan I attest that I have reviewed and updated the patient's conditions, allergies, and medications to the best of my ability. Shanthi Franks RPh 06/11/2024, 12:31 PM documented in this encounter Miscellaneous Notes * MTM Personal Medication List - Shanthi Franks RPh - 06/11/2024 12:22 PM EST Medication How I take it Why I use it Prescriber Accu-Chek Guide In Vitro Strip (Glucose Blood) Use to test blood glucose 4 times daily. Blood sugars Alfa Jaramillo MD Accu-Chek Guide Me w/Device Kit Use as directed to check blood sugars. Blood sugars Alfa Jaramillo MD Accu-Chek Softclix Lancets Use to test blood glucose 4 times daily. Blood sugars Alfa Jaramillo MD Albuterol Sulfate HFA 108 (90 Base) MCG/ACT Inhalation Aerosol Solution Inhale 2 Puffs by mouth 4 times daily as needed for shortness of breath Breathing Alfa Jaramillo MD Aspirin 81 MG Oral Tablet Delayed Release Take 1 Tablet by mouth daily in the morning. [facility] AUDELIA Garcia Cephalexin 500 MG Oral Capsule Take 1 Capsule by mouth in the morning and 1 Capsule at noon and 1 Capsule before bedtime. Do all this for 10 days. Diabetic foot ulcer Alfa Jaramillo MD Famotidine 40 MG Oral Tablet (Pepcid) Take 1 Tablet by mouth daily in the morning. Heartburn/acid refulx Alfa Jaramillo MD Fluticasone Propionate 50 MCG/ACT Nasal Suspension (Flonase) Administer 2 Sprays into each nostril daily in the morning. Runny nose Natalia Heller PA-C Furosemide 20 MG Oral Tablet (Lasix) Take 1 Tablet by mouth once a day on Sunday, Sunday, and Sunday only. Fluid AUDEILA Mojica Insulin Aspart 100 UNIT/ML Injection Solution (NovoLOG) Inject under the skin using insulin pump. Getting from novonordisk Blood sugars Nataliafeliz Heller PA-C Isosorbide Mononitrate ER 60 MG Oral Tablet Extended Release 24 Hour (Imdur) Take 1 Tablet by mouthdaily in the morning. Blood pressure and chest pain Roma Duff PA-C metFORMIN HCl 1000 MG Oral Tablet (Glucophage) Take one tablet by mouth twice daily with food Diabetes Alfa Jaramillo MD Metoprolol Succinate ER 50 MG Oral Tablet Extended Release 24 Hour (toPROL XL) Take one tablet by mouth twice daily Blood pressure Natalia Heller PA-C Mirtazapine 30 MG Oral Tablet (Remeron) Take 1/2 Tablet by mouth daily at bedtime. Sleeping Bobby Heller PA-C Multiple Vitamin (DAILY VALUE MULTIVITAMIN) Tablet Take 1 Tablet by mouth in the morning. Supplement Self Nitroglycerin 0.3 MG Sublingual Tablet Sublingual (Nitrostat) Place 1 tablet under the tongue every5 minutes up to 3 doses as needed for chest pain. If no relief, call 911 or go to ER Chest pain AUDELIA Mojica Ozempic (2 MG/DOSE) 8 MG/3ML Subcutaneous Solution Pen-injector (Semaglutide (2 MG/DOSE)) Inject 2 mg under the skin once a week. Sundays. Obtaining from NovoNordisk. -- ON HOLD per MTM as of 06/11/24 Blood sugars Natalia Heller PA-C Potassium Chloride ER 10 MEQ Oral Capsule Extended Release Take 1 Capsule by mouth once a day on Sunday, Sunday, and Sunday only. Supplement AUDELIA Mojica Pregabalin 150 MG Oral Capsule (Lyrica) Take one capsule by mouth twice daily Nerve pain Natalia Heller PA-C Rosuvastatin Calcium 20 MG Oral Tablet (Crestor) Take 1 Tablet by mouth in the morning. CholesterolAUDELIA Mojica Sertraline HCl 50 MG Oral Tablet (Zoloft) Take 1 and 1/2 tablets by mouth in the evening Mood Natalia Heller PA-C Vitamin B12 500 MCG Oral Tablet Take 1 tablet by mouth daily Supplement Self Warfarin Sodium 5 MG Oral Tablet (Coumadin) Take 1 to 2 tablets by mouth daily as directed by anticoagulation clinic. Blood thinner Alfa Jaramillo MD * [facility] To-Do-List - Shanthi Franks RPh - 06/11/2024 12:21 PM EST Images from the original note were not included. What we talked about: What I should do: The importance of taking your medication as prescribed Your medicine works best when taken as prescribed. It can be hard to remember to take daily medications. Consider making it a part of your daily routine. Pair taking your medication with something you do every day, like brushing your teeth or eating a meal. Consider setting daily alarms to help remind yourself when it is time to take your medicine. Using a pill box can also help you organize your medicines. Pill boxes allow you to fill each day slot with your daily medicine and help you track when your next dose is due. documented in this encounter Plan of Treatment Upcoming Encounters Date Type Department Care Team (Late st Contact Info) Description 06/19/2024 4:00 PM EST [facility] [address] [facility] [place] [address] Rosalind Smith RN [address] [facility] [place] [address] 06/25/2024 11:50 AM EST [facility] Pharm[facility], [place] [address] [facility] [address] [place] [address] [address] [facility] [address] 07/09/2024 11:10 AM EST [facility] Pharm[facility], [place] [address] [address] [facility] [address] [facility] [address] [place] [address] 07/09/2024 11:20 AM EST Office Visit Pharmacy, [place] [address] [facility] [address] [facility] [address] [place] [facility] [place] [address] 07/09/2024 12:00 PM EST Office Visit [facility] [address] [place] [address] Alfa Jaramillo MD [address] [facility] [address] 07/17/2024 9:00 AM EST Office Visit [facility], [facility] [address] [facility] [place] [address] Nesha Denney CRNP [address] [facility] [place] [address] 09/05/2024 9:30 AM EST Office Visit Podiatry [address] [place] [address] Kenny Archibald, [address] [address] 11/10/2024 11:00 AM EDT Office Visit [facility] [address] [facility] [address] Natalia Heller PA-C [address] [facility] [address] Scheduled Procedures Name Priority Associated Diagnoses Date/Ti [...] D LEVEL ONCE IN A LIFETIME-USE SMARTSET# 27334 Completed 05/09/2024, 06/18/2020, 07/25/2019, Additional history exists [...] this encounter Medical Devices Implanted Type Area Microphone Operator Device Identifier Shelf Expiration Date Model / Serial / Lot Graft Cervical 6x8 [id number] - [id number] Implanted:Qt y: 2 on 08/21/2008 at [place] [facility] [place] Tissue - Human Spine Cervical [employer] [id number] / / Screw Spine 14mm 8-50-014 - [id number] Implanted:Qt y: 2 on 08/21/2008 at [place] [facility] [place] N/A: Spine Cervical [employer] DEPUY 1868-50-014 / / Depuy [place] 14 Mm Sd Con Scr Implanted:Qt y: 2 on 08/21/2008 at [place] [facility] [place] N/A: Spine Cervical [employer]PUY 860-014 / / Description:Depuy skyline 14 mm SD con SCR 34 Mm Plate Implanted:Qt y: 1 on 08/21/2008 at [place] [facility] [place] N/A: Spine Cervical / / Description:34 mm Depuy plat e 14 Mm Variable Rescue Implanted:Qt y: 2 on 08/21/2008 at [place] [facility] [place] N/A: Spine Cervical [id number] / / Description:14 mm variable r escue Screw 3.5x14 Mntr Fa [id number] - [id number] Implanted:Qt y: 10 on 07/13/2010 at [place] [facility] [place] N/A: Spine Cervical JNJ : [employer] [id number] / / Devaughn 3.3m540eb [id number] - [id number] Implanted:Qt y: 1 on 07/13/2010 at [place] [facility] [place] N/A: Spine Cervical JNJ : [employer] [id number] / / Screw Inner Mntr [id number] - [id number] Implanted:Qt y: 8 on 07/13/2010 at [place] [facility] [place] N/A: Spine Cervical JNJ : [employer] [id number] / / Nut Outer Xcon [id number] - [id number] Implanted:Qt y: 2 on 07/13/2010 at [place] [facility] [place] N/A: Spine Cervical JNJ : [employer] [id number] / / Screw Inner Xcon [id number] - [id number] Implanted:Qt y: 2 on 07/13/2010 at [place] [facility] [place] N/A: Spine Cervical JNJ : ETH[employer] [id number] / / Plate 35mm Xcon [id number] - [id number] Implanted:Qt y: 1 on 07/13/2010 at [place] [facility] [place] N/A: Spine Cervical JNJ : [employer] [id number] / / documented as of this encounter Visit Diagnoses Diagnosis Referred for management of medication therapy- Primary Encounter for long-term (current) use of [...] the patient have Health Care Power of Licensed Home Inspector? No * Full Code Date Activated Date [...] Power of Attor kim? No Care Teams Steam Gigger Relationship Specialty Start Date End Date Natalia Heller PA-C [address] [facility] [place] [address] PCP - General Physician Switchman Supervisor 01/06/24 documented as of this encounter
--- OUTSIDE RECORDS SUMMARY | 2024-09-05 13:24 | External Medical Summary | Summary of Care ---
Author Name Unknown Organization [facility] Address [address] [facility] [place] [address] Phone [phone] Care Team Providers Care News Assignment Editor Name Role Phone Natalia Heller PA-C Primary Care Provider [phone] Reason for Visit * Reason Onset Date Comments Patient Assistance Program 06/11/2024 Not r e-enrolling yet for NovoNordisk Encounter Details Date Type Department Care Team (Late st Contact Info) Description 06/11/2024 Telephone Pharmacy, [address] [address] Shanthi Franks, [facility] [address] [place] [address] Patient Assistance Program (Not re-enrolli... 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),DM (diabetes mellitus) type II, controlled, with peripheral vascular disorder ([facility]) Use to test blood glucose 4 times daily. E11.9 400 Strip 3 10/04/2023 Active Accu-Chek Guide Me w/Device KitIndications:Type 2 diabetes mellitus with foot ulcer, with long-term current use of insulin ([facility]),DM (diabetes mellitus) type II, controlled, with peripheral vascular disorder ([facility]) Use as directed. 10/04/2023 Active Accu-Chek Softclix LancetsIndications:T ype 2 diabetes mellitus with foot ulcer, with long-term current use of insulin ([facility]),DM (diabetes mellitus) type II, controlled, [...] skin. 310 units in pump. Getting from novonoRheti Incisk PAP Active Aspirin 81 MG Oral Tablet [...] [place], goal below 130/80,Coronary artery disease involving [place] coronary artery of [place] heart without angina pectoris TAKE ONE TABLET [...] skin once a week. Sundays. Obtaining from [employer]. -- ON HOLD per MTM as of 06/11/24 Active Nitroglycerin 0.3 MG Sublingual Tablet Sublingual (Nitrostat)Indicatio ns:Coronary artery disease of [place] artery of [place] heart with stable angina pectoris (HCC) PLACE [...] artery disease of n ative artery of [place] heart with stable angina pectoris 12/08/2020 Last [...] Notes * Telephone Encounter - Shanthi Franks [facility] - 06/11/2024 11:51 AM EST Pt has been getting ozempic and novolog for NovoNordisk PAP. Ozempic currently on hold due to stomach issues. She has an oversupply of novolog right now. I will hold off on re-enrolling for now and plan to re-enroll in September timeframe. documented in this encounter Plan of Treatment Upcoming Encounters Date Type Department Care Team (Late st Contact Info) Description 06/19/2024 4:00 PM EST Home Visit [facility] [address] [place] [address] Rosalind Smith, RN [address] [place] [address] 06/25/2024 11:50 AM EST Anticoagulation Pharmacy, [place] [address] [address] [facility] [place] [facility] [place] [address] [facility] [address] [place] [facility] [place] [facility] [address] 07/09/2024 11:10 AM EST Anticoagulation Pharmacy, [place] [address] [place] [facility] [place] [facility] [address] [facility] [address] [place] [facility] [place] [facility] [address] 07/09/2024 11:20 AM EST Office Visit Pharmacy, [place] [address] [place] [facility] [place] [facility] [place] [address] [facility] [address] [place] [facility] [address] 07/09/2024 12:00 PM EST Office Visit [facility] [address] [place] [address] Alfa Jaramillo MD [address] [place] [address] 07/17/2024 9:00 AM EST Office Visit Cardiology, [facility] [address] [facility] [place] [address] Nesha Denney CRNP [address] [facility] [place] [address] 09/05/2024 9:30 AM EST Office Visit Podiatry [address] [place] [address] Kenny Archibald, JASMINE [facility] [place] [address] 11/10/2024 11:00 AM EDT Office Visit [facility] [address] [place] [address] Natalia Heller PA-C [address] [facility] [address] Scheduled Procedures Name Priority Associated Diagnoses Date/Ti [...] 02/03, 05/12/2020, Additional history exists Albumin/Creatinine Ratio 05/09/20252 024, 01/02/2023, 09/19/2022, Additional history exists GFR [...] D LEVEL ONCE IN A LIFETIME-USE SMARTSET# 70636 Completed 05/09/2024, 06/18/2020, 07/25/2019, Additional history exists [...] this encounter Medical Devices Implanted Type Area Paralegal Assistant Device Identifier Shelf Expiration Date Model / Serial / Lot Graft Cervical 6x8 [id number] - [id number] Implanted:Qt y: 2 [place] 08/21/[place] [facility] [place] - Human Spine Cervical [employer] [id number] / / Screw Spine 14mm 50-014 - [id number] Implanted:Qt y: 2 on 08/21/2008 [place] [facility] [place]A: Spine Cervical CAR[employer] DEPUY 50-014 / / Depuy [place] 14 Mm Sd Con Scr Implanted:Qt y: 2 on 08/21/2008 [place] [facility] [place]A: Spine Cervical [employer] DEPUY 60-014 / / Description:Depuy skyline 14 mm SD con SCR 34 Mm Plate Implanted:Qt y: 1 on 08/21/2008 [place] [facility] [place]/A: Spine Cervical 1867-09- / / Description:34 mm Depuy plat e 14 Mm Variable Rescue Implanted:Qt y: 2 on 08/21/2008 [place] [facility] [place]/A: Spine Cervical 1868-54-014 / / Description:14 mm variable r escue Screw 3.5x14 Mntr Fa [id number] - [id number] Implanted:Qt y: 10 on 07/13/2010 [place] [facility] [place]: Spine Cervical JNJ : ETH[employer]ON [employer]ATIONS [id number] / / Devaughn [id number] - [id number] Implanted:Qt y: 1 on 07/13/2010 [place] [facility] [place]: Spine Cervical JNJ : [employer] [id number] / / Screw Inner Mntr [id number] - [id number] Implanted:Qt y: 8 on 07/13/2010 [place] [facility] [place]: Spine Cervical JNJ : [employer] [id number] / / Nut Outer Xcon [id number] - [id number] Implanted:Qt y: 2 on 07/13/2010 [place] [facility] [place]: Spine Cervical JNJ : [employer] [id number] / / Screw Inner Xcon [id number] - [id number] Implanted:Qt y: 2 on 07/13/2010 [place] [facility] [place]: Spine Cervical JNJ : [employer] [id number] / / Plate 35mm Xcon [id number] - [id number] Implanted:Qt y: 1 on 07/13/2010 [place] [facility] [place]: Spine Cervical JNJ : [employer] [id number] / / documented as of this encounter Visit Diagnoses Diagnosis Type 2 diabetes mellitus with foot ulcer, with long-term current use of insulin (HCC)- Primary documented in this encounter Advance Directives * [...] the patient have Health Care Power of Interior Horticulturist? No * Full Code Date Activated Date [...] Power of Attor kim? No Care Teams News Assignment Editor Relationship Specialty Start Date End Date Natalia Heller PA-C [address] [facility] [place] [address] PCP - General Physician Accounting Bookkeeper 01/06/24 documented as of this encounter
--- OUTSIDE RECORDS SUMMARY | 2024-09-05 13:24 | External Medical Summary | Summary of Care ---
Author Name Unknown Organization [facility] Address [address] [facility] [address] Phone [phone] Care Team Providers Care Assembler Equipment Name Role Phone Natalia Heller PA-C Primary Care Provider [phone] Reason for Visit * Reason Comments Diabetic Foot Care Nail problem rfc Encounter Details Date Type Department Care Team ([facility] st Contact Info) Description 06/03/2024 9:45 AM EDT Office Visit Podiatry [address] [place] [address] Kenny Archibald, JASMINE [address] [place] [address] Diabetic polyneuropathy associated with type 1 diabetes mellitus (HCC)*; Hypertrophy of nail Allergies Active Allergy Reactions Criticality Noted Date Comments Alendronate Sodium 06/24/2012 Burning sensation and difficulty breathing Proton Pump Inhibitors Hives 02/20/2002 nexium documented as of this encounter (statuses as of 06/03/2024) Medications Medication Sig Dispensed Refills Start Date End Date Status Multiple Vitamin (DAILY VALUE MULTIVITAMIN) Tablet Take 1 Tablet by mouth in the morning. Active Fluticasone Propionate 50 MCG/ACT Nasal Suspension (Flonase)Indications :Chronic rhinitis Administer 2 Sprays into each nostril in the morning. 16 g 1 11/01/2022 Active Warfarin Sodium 5 MG Oral Tablet (Coumadin)Indication s:emt intermediate current use of anticoagulant therapy,Deep vein thrombosis (DVT) (HCC) TAKE ONE TABLET TO ONE AND ONE-HALF TABLET BY MOUTH EVERY DAY DIRECTED BY [facility] 135 Tablet 3 09/13/2023 5 Active Accu-Chek Guide In Vitro Strip (Glucose Blood)Indications:Ty pe 2 diabetes mellitus with foot ulcer, with long-term current use of insulin ([facility]),DM (diabetes mellitus) type II, controlled, with peripheral vascular disorder ([facility]) Use to test blood glucose 4 times daily. E11.9 400 Strip 3 10/04/2023 Active Accu-Chek Guide Me w/Device KitIndications:Type 2 diabetes mellitus with foot ulcer, with long-term current use of insulin ([facility]),DM (diabetes mellitus) type II, controlled, with peripheral vascular disorder ([facility]) Use as directed. 10/04/2023 Active Accu-Chek Softclix LancetsIndications:T ype 2 diabetes mellitus with foot ulcer, with long-term current use of insulin ([facility]),DM (diabetes mellitus) type II, controlled, with peripheral vascular disorder ([facility]) Use to test blood glucose 4 [...] [place], goal below 130/80,Coronary artery disease involving [place] coronary artery of [place] heart without angina pectoris TAKE ONE TABLET BY MOUTH EVERY MORNING 90 Tablet 3 01/15/2024 5 Active metFORMIN HCl 1000 MG Oral Tablet (Glucophage)Indicati ons:DM type 1 causing neurological disease, not at goal (HCC) TAKE ONE TABLET BY MOUTH TWICE A DAY WITH FOOD 200 Tablet 3 01/22/2024 Active Vitamin B12 500 MCG Oral Tablet Take by mouth daily. Active Ozempic (2 MG/DOSE) 8 MG/3ML Subcutaneous Solution Pen-injector (Semaglutide (2 MG/DOSE)) Inject 2 mg under the skin once a week. Sundays. Obtaining from [employer]. Active Nitroglycerin 0.3 MG Sublingual Tablet Sublingual (Nitrostat)Indicatio ns:Coronary artery disease of [place] artery of [place] heart with stable angina pectoris (HCC) PLACE [...] mouth at bedtime. 30 Tablet 06/02/2024 Active documented as of this encounter (statuses as of 06/03/2024) Active Problems Problem Noted Date Diagnosed Date [...] artery disease of [place] artery of [place] heart with stable angina pectoris 12/08/2020 Last [...] Per Lipid Taxonomy. Cervical spinal stenosis 08/21/2008 emt intermediate current use of anticoagulant therapy 0 05/03/2005 documented as of this encounter (statuses as of 06/03/2024) Resolved Problems Problem Noted Date Diagnosed Date [...] as of this encounter (statuses as of 06/03/2024) Immunizations Name Administration Dates Next Due COVID-19 [...] Progress Notes * Kenny Archibald DPM - 06/03/2024 10:01 AM EDT Subjective: Patient presents in office today for nail care HISTORY Past Medical History: Diagnosis Date Asthma [...] LDL below 100 07/15/2009 Per Lipid Taxonomy. [facility] (current) use of anticoagulants Major depressive disorder, [...] performed by Buffy Castro MD at OR [facility] AMPUTATION OF TOE Right 05/02/2019 AMPUTATION TOE METATARSOPHALANGEAL JOINT performed by Kenny Archibald DPM at OR [facility] ARTHROPLASTY KNEE TOTAL Right 05/2016 Dr Reynoso BX LYMPH NODE DEEP AXIL Left 04/07/2015 BIOPSY LYMPH NODE DEEP AXILLARY OPEN performed by Buffy Castro MD at OR [facility] CARPAL TUNNEL SURGERY 10/15/2009 NEUROPLASTY MEDIAN NERVE AT CARPAL TUNNEL performed by CHELSI DICKERSON at OR [facility] CARPAL TUNNEL SURGERY 01/07/2010 NEUROPLASTY MEDIAN NERVE AT CARPAL TUNNEL performed by CHELSI DICKERSON at OR [facility] COLONOSCOPY 12/09/2009 adenomatous polyps repeat 6 months [...] performed by Anselmo Sung MD at ENDOSCOPY [facility] COLONOSCOPY, DIAGNOSTIC (RECTUM) 03/21/2018 adenomatous polyp, diverticulosis, repeat 2 yrs/COLONOSCOPY FLEXIBLE PROXIMAL DIAGNOSTIC performed by Anselmo Sung MD at ENDOSCOPY [facility] COLONOSCOPY, DIAGNOSTIC (RECTUM) 01/15/2014 COLONOSCOPY FLEXIBLE PROXIMAL DIAGNOSTIC performed by Anselmo Sung MD at ENDOSCOPY [facility] COLONOSCOPY, DIAGNOSTIC (RECTUM) 11/16/2020 Hemorrhoids, diverticulosis sigmoid colon, multi polyps / biopsy benign adenomatous polyps / 1 yearrecall / COLONOSCOPY FLEXIBLE PROXIMAL DIAGNOSTIC performed by Anselmo Sung MD at ENDOSCOPY [facility] COLONOSCOPY, DIAGNOSTIC (RECTUM) 09/18/2023 multiple small and large mouthed diverticula/biopsies show adenomatous polyps/recall 10 years/COLONOSCOPY FLEXIBLE PROXIMAL DIAGNOSTIC performed by Anselmo Sung MD at ENDOSCOPY [facility] COLONOSCOPY/REMOVE LESION 03/16/2009 repeat 6 months CORONARY ANGIOGRAPHY W/LEFT HEART CATH 11/12/2023 CORONARY ANGIOGRAPHY W/LEFT HEART CATH performed by Huey Barrera MD at CARDIAC LABS [facility] DILATION AND CURETTAGE (D&C) 1996 D&C ENDO DECOMPRESS SPINAL CORD W/LAMINOTOMY, CERVICAL 07/13/2010 LAMINECTOMY DECOMPRESSION SPINAL CORD POSTERIOR CERVICAL performed by CHELSI DICKERSON at OR [facility] IDENTIFY SENTINEL NODE, RADIOACTIVE TRACER Left 04/07/2015 INJECTION PROCEDURE FOR IDENTIFICATION SENTINEL NODE performed by Buffy Castro MD at [facility] KNEE ARTHROSCOPY, DIAGNOSTIC 12/2012 Left knee [...] performed by Buffy Castro MD at OR [facility] NECK SPINE FUSION (CERV, BELOW C2) 08/21/2008 ARTHRODESIS SPINE ANTERIOR CERVICAL performed by CHELSI DICKERSON at [facility] NECK SPINE FUSION (CERV, BELOW C2) 07/13/2010 ARTHRODESIS SPINE POSTERIOR CERVICAL performed by CHELSI DICKERSON at OR [facility] RADIATION THERAPY MANAGEMENT Left 07/10/2015 REMOVE NECK SPINE LAMINA, 1-2 SEGS 07/13/2010 LAMINECTOMY POSTERIOR CERVICAL ONE OR TWO VERTEBRAL SEGMENTS performed by CHELSI DICKERSON at [facility] SENTINEL LYMPH NODE BIOPSY PERFORMED Left 04/07/2015 SPINE SEG FIX, POST, 3-6 SEG, INSERT 07/13/2010 POSTERIOR SPINE SEGMENTAL INSTRUMENTATION 3 TO 6 PSF performed by CHELSI DICKERSON at OR [facility] Family History Problem Relation Name Age of Onset Diabetes Mother Breast Cancer Mother 76 Diabetes Father Heart Disorder Father [place] age 34 - age 52 Breast Cancer Grandmother (Maternal) Cancer Sister unknown type Diabetes Brother Diabetes Brother Social History Socioeconomic History Marital status: Spouse name: gaetano Number of children: 2 Years of education: Not on file Highest education level: Not on file Occupational History Comment: retired from [email or web address] Tobacco Use Smoking status: Former Current packs/day: 0.00 Average packs/day: 2.0 packs/day for 36.0 years (72.0 ttl pk-yrs) Types: Cigarettes Start date: 04/19/1979 Quit date: 04/19/2015 Years since quittin.1 Smokeless tobacco: Never Vaping Use Vaping status: Never Used Substance and Sexual Activity Alcohol use: Not Currently Drug use: No Sexual activity: Yes Partners: Male Comment: Other Topics Concern Not on file Social History Narrative Not on file Social Determinants of Health Financial Resource Strain: Low Risk (11/19/2023) Financial Resource Strain Do you have any trouble paying for your medications, or do you think you might in the future? (Adult - for ages 18 years and over): No Does your family have trouble paying for medicine? (Household - for ages 0-17 years): Not on file Food Insecurity: No Food Insecurity (11/19/2023) Food Insecurity Do you need food for this week? (Adult - for ages 18 years and over): No Are you able to get enough food for your family? (Household - for ages 0-17 years): Not on file Does your family need food this week? (Household - for ages 0-17 years): Not on file Do you always have enough food for your family? (Household - for ages 0-17 years): Not on file Transportation Needs: No Transportation Needs (11/19/2023) Transportation Needs Do you have trouble getting a ride to medical visits or work? (Adult - for ages 18 years and over):Never True Does your family have a hard time getting a ride to doctors visits? (Household - for ages 0-17 years): Not on file Has lack of transportation kept you from medical appointments, meetings, work, or from getting things needed for daily living? Check all that apply. (Adult - for ages 18 years and over): Not on file Do you (or your family) have trouble finding or paying for a ride (transportation)? (Household - for ages 0-17 years): Not on file Social Connections: Socially Integrated (11/19/2023) Social Connections How often do you feel lonely or isolated from those around you? (Adult - for ages 18 years and over): Never Housing Stability: Low Risk (11/19/2023) Housing Stability Do you currently live in a correction or have no steady place to sleep at night? (Adult - for ages 18 years and over): No Do you think you are at risk of becoming homeless? (Adult - for ages 18 years and over): No Does your family worry about paying for your home or becoming homeless? (Household - for ages 0-17 years): Not on file Are you homeless or worried that you might be in the future? (Adult - for ages 18 years and over): Not on file Are you (or your family) homeless or worried that you might be in the future? (Household - for ages0-17 years): Not on file Current Outpatient Medications Medication Sig Dispense Refill Multiple Vitamin (DAILY VALUE MULTIVITAMIN) Tablet Take 1 Tablet by mouth in the morning. (Patient not taking: Reported on 05/19/2024) Fluticasone Propionate 50 MCG/ACT Nasal Suspension (Flonase) [...] skin. 310 units in pump. Getting from [employer] PAP Aspirin 81 MG Oral Tablet Delayed [...] skin once a week. Sundays. Obtaining from [employer]. Nitroglycerin 0.3 MG Sublingual Tablet Sublingual (Nitrostat) PLACE 1 TABLET UNDER THE TONGUE EVERY5 MINUTES UP TO 3 DOSES NEEDED FOR CHEST PAIN. IF NO RELIEF CALL 911 OR GO TO ER 25 Tablet 11 Albuterol Sulfate HFA 108 (90 Base) MCG/ACT Inhalation Aerosol Solution Inhale 2 Puffs by mouth 4 times daily 54 g 3 Sertraline HCl 50 MG Oral Tablet (Zoloft) TAKE 1 AND 1/2 TABLETS BY MOUTH AT BEDTIME 135 Tablet 1 Pregabalin 150 MG Oral Capsule (Lyrica) TAKE ONE CAPSULE BY MOUTH TWICE A DAY 180 Capsule 1 Mirtazapine 30 MG Oral Tablet (Remeron) Take 1 Tablet by mouth at bedtime. 30 Tablet 0 No current facility-administered medications for this visit. ROS EXAM: CONSTITUTIONAL: No change in weight, No weakness, No fatigue, and No fevers, sweats, or chills EXTREMITIES: No pain, redness or swelling on the joints SKIN/INTEGUMENTARY: No edema, No rash, and No itching NEUROLOGIC: Normal balance, No headaches, No seizures, and No weakness Objective: Vascular examination: DP 2/4 PT 1/4 right 0/4 left SPVFT 3sec, no digital hair, cold feet Dermatological examination: Dystrophic nails x 9 Orthopedic examination: previous partial 1st ray amputation Neurological examination: Epicritic sensation severely diminished +parasthesias Assessment: The primary encounter diagnosis was Diabetic polyneuropathy associated with type 1 diabetes mellitus (HCC). A diagnosis of Hypertrophy of nail was also pertinent to this visit. Plan: Trimmed dystrophic nails Tubefoam pads documented in this encounter Nursing Notes * Brook Thrasher CMA - 06/03/2024 9:36 AM EDT Diabetic rfc documented in this encounter Plan of Treatment Upcoming Encounters Date Type Department Care Team (Late st Contact Info) Description 06/10/2024 8:30 AM EST Imaging Radiology [facility], [address] [place] [address] 06/11/2024 10:50 AM EST [facility], [place] [address] [facility] [address] [facility] [address] [facility] [address] 06/11/2024 11:00 AM EST Office Visit Pharmacy, [place] [address] [place] [address] [facility] [address] [place] [address] 06/19/2024 4:00 PM EST [facility] Visit [facility], [facility] [address] [place] [address] Rosalind Smith, RN [address] [place] [address] 07/17/2024 9:00 AM EST Office Visit Cardiology, [facility] [address] [place] [address] Nesha Denney CRNP [address] [place] [address] 09/05/2024 9:30 AM EST Office Visit Podiatry [address] [place] [address] Kenny Archibald, [address] [address] 11/10/2024 11:00 AM EDT Office Visit Family Practice, [place] [address] [place] [id number] Natalia Heller PA-C [address] [place] [address] Scheduled Orders Name Type Priority Associated Diagnoses Orde r Schedule TRIM DYSTROPHIC NAILS, ANY # Procedures Routine Diabetic polyneuropathy associated with type 1 diabetes mellitus (HCC) Hypertrophy of nail Ordered: 06/03/2024 Scheduled Procedures Name Priority Associated Diagnoses Date/Ti [...] 01/18/2021, 0 02/18/2019, 02/19/2018, Additional history exists Adult Wellness Visit 03/27/2023 03/27/2022, 01/19/20 COVID-19 Vaccine ( season) 2024 05/08/2022, 07/20/2021, [...] 05/09/2024, 0 03/2024, 11/23/2023, Additional history exists Pneumococcal Vaccine: 65+ Years [...] D LEVEL ONCE IN A LIFETIME-USE SMARTSET# [id number] Completed 05/09/2024, 06/18/2020, 07/25/2019, Additional history exists [...] this encounter Medical Devices Implanted Type Area Broom Machine Operator Device Identifier Shelf Expiration Date Model / Serial / Lot Graft Cervical 6x8 [id number] - [id number] Implanted:Qt y: 2 on 08/21/2008 at OR [facility] Tissue - Human Spine Cervical [employer] [id number] / / Screw Spine 14mm 50-014 - [id number] Implanted:Qt y: 2 on 08/21/2008 at OR [facility] N/A: Spine Cervical [employer] DEPUY 8-50-014 / / Depuy Bow 14 Mm Sd Con Scr Implanted:Qt y: [...] variable r escue Screw 3.5x14 Mntr Fa [id number] - [id number] Implanted:Qt y: 10 on 07/13/2010 at OR [facility] N/A: Spine Cervical JNJ : [employer] [id number] / / Devaughn [id number] - [id number] Implanted:Qt y: 1 on 07/13/2010 at OR [facility] N/A: Spine Cervical JNJ : [employer] [id number] / / Screw Inner Mntr [id number] - [id number] Implanted:Qt y: 8 on 07/13/2010 at OR [facility] N/A: Spine Cervical JNJ : [employer] [id number] / / Nut Outer Xcon [id number] - [id number] Implanted:Qt y: 2 on 07/13/2010 at OR [facility] N/A: Spine Cervical JNJ : [employer] [id number] / / Screw Inner Xcon [id number] - [id number] Implanted:Qt y: 2 on 07/13/2010 at OR [facility] N/A: Spine Cervical JNJ : [employer] [id number] / / Plate 35mm Xcon [id number] - [id number] Implanted:Qt y: 1 on 07/13/2010 at OR [facility] N/A: Spine Cervical JNJ : [employer] [id number] / / documented as of this encounter Visit Diagnoses Diagnosis Diabetic polyneuropathy associated with type 1 diabetes mellitus (HCC)- Primary Hypertrophy of nail Other specified disease of nail documented in this encounter Advance Directives * [...] the patient have Health Care Power of Oval Or Circular Glass Cutter? No * Full Code Date Activated [...] Power of Attor kim? No Care Teams Assembler Equipment Relationship Specialty Start Date End Date Natalia Heller PA-C [address] [facility] [place] [address] PCP - General Physician Tire Mold Engraver 01/06/24 documented as of this encounter
--- OUTSIDE RECORDS SUMMARY | 2024-09-05 13:24 | External Medical Summary ---
Author Name Unknown Address Unknown Organization : Laboratory Report Ordering Provider Test Date Status LETICIA HOOD 06/11/2024 10:59:38 Final Therapeutic ranges for non-o perative patients:
Prophylaxsis/treatment of DVT: (Range:2.0-3.0)
Treatment of pulmonary embolism:(Range:2.0-3.0)
Prevention of systemic embolism from:
-tissue heart valves
-acute myocardial infarction
-valvular heart disease
-atrial fibrillation
(Range: 2.0-3.0)
Mechanical prosthetic valves: (Range: 2.5-3.5) Observation Date Value Abnormality Reference (Units ) Status INR in Capillary blood by Coagulation assay 06/11/2024 10:59:38 1.3 (INR) Final Performing Location
--- OUTSIDE RECORDS SUMMARY | 2024-09-05 13:24 | External Medical Summary | Summary of Care ---
Author Name Unknown Organization [facility] Address [address] [facility] [place] [address] Phone [phone] Care Team Providers Care Drill Rig Operator Helper Name Role Phone Natalia Heller PA-C Primary Care Provider [phone] Reason for Visit * Reason Onset Date Comments [facility]: Maintenance 05/19/2024 Encounter Details Date Type Department Care Team (Late st Contact Info) Description 05/19/2024 Telephone [facility], [facility] [address] [place] [address] Rosalind Smith, RN [address] [place] [address] [facility]: Maintenance Allergies Active Allergy Reactions Criticality Noted Date Comments Alendronate Sodium 06/24/2012 Burning sensation and difficulty breathing Proton Pump Inhibitors Hives 02/20/2002 nexium documented as of this encounter (statuses as of 06/06/2024) Medications Medication Sig Dispensed Refills Start Date [...] 135 Tablet 3 09/13/2023 09/12/19 25 Active Accu-Chek Guide In Vitro Strip (Glucose Blood)Indications:T ype 2 diabetes mellitus with foot ulcer, with long-term current use of insulin ([facility]),DM (diabetes mellitus) type II, controlled, with peripheral vascular disorder ([facility]) Use to test blood glucose 4 times daily. E11.9 400 Strip 3 10/04/2023 Active Accu-Chek Guide Me w/Device KitIndications:Type 2 diabetes mellitus with foot ulcer, with long-term current use of insulin ([facility]),DM (diabetes mellitus) type II, controlled, with peripheral vascular disorder ([facility]) Use as directed. 10/04/2023 Acti ve Accu-Chek Softclix LancetsIndications: Type 2 diabetes mellitus with foot ulcer, with long-term current use of insulin ([facility]),DM (diabetes mellitus) type II, controlled, with peripheral vascular disorder ([facility]) Use to test blood glucose 4 times daily. DX: E11.9 400 Each 3 10/04/2023 Active Rosuvastatin Calcium 20 MG Oral Tablet (Crestor)Indication s:Dyslipidemia, goal LDL below 70 Take 1 Tablet by mouth in the morning. 90 Tablet 3 10/25/2023 Active Insulin Aspart 100 UNIT/ML Injection Solution (NovoLOG) Inject under the skin. 310 units in pump. 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 Active Ozempic (2 MG/DOSE) 8 MG/3ML Subcutaneous Solution Pen-injector (Semaglutide (2 MG/DOSE)) Inject 2 mg under the skin once a week. Sundays. Obtaining from [employer]. Active Nitroglycerin 0.3 MG Sublingual Tablet Sublingual (Nitrostat)Indicati ons:Coronary artery disease of [place] artery of [place] heart with stable angina pectoris (HCC) PLACE 1 TABLET UNDER THE TONGUE EVERY 5 MINUTES UP TO 3 DOSES NEEDED FOR CHEST PAIN. IF NO RELIEF CALL 911 OR GO TO ER 25 Tablet 11 02/05/2024 02/05/20 25 Active Albuterol Sulfate HFA 108 (90 Base) MCG/ACT Inhalation Aerosol SolutionIndications :Bronchitis, complicated Inhale 2 Puffs by mouth 4 times daily 54 g 3 02/06/2024 Active Sertraline HCl 50 MG Oral Tablet (Zoloft) TAKE 1 AND 1/2 TABLETS BY MOUTH AT BEDTIME 135 Tablet 1 05/06/2024 Active Pregabalin 150 MG Oral Capsule (Lyrica)Indications :Diabetic polyneuropathy associated with type 1 diabetes mellitus (HCC) TAKE ONE CAPSULE BY MOUTH TWICE A DAY 180 Capsule 1 05/09/2024 11/09/19 25 Active Mirtazapine 30 MG Oral Tablet (Remeron)Indication s:Primary insomnia,Poor appetite Take 1 Tablet by mouth at bedtime. 30 Tablet 05/09/2024 06/02/20 24 Discontinu ed(Refill) documented as of this encounter (statuses as of 06/06/2024) Active Problems Problem Noted Date Diagnosed Date [...] artery disease of n ative artery of [place] heart with stable angina pectoris 12/08/2020 Last [...] as of this encounter (statuses as of 06/06/2024) Resolved Problems Problem Noted Date Diagnosed Date [...] as of this encounter (statuses as of 06/06/2024) Immunizations Name Administration Dates Next Due COVID-19 [...] Telephone Encounter - Emilee Blanco LPN - 05/21/2024 3:03 PM EDT Attempted to call patient, there was no answer, left voicemail. When patient returns call, ok for SHAKIRA to relay message, please refer to below documentation. If needed, can transfer to dedicated nurse line. * Telephone Encounter - Natalia Heller PA-C - 05/19/2024 4:12 PM EDT Please see if patient thinks she could tolerate a higher dose of remeron for sleep / appetite If not, I have other options All have potential for sedation but we would not know until we try aNtalia Heller PA-C * Telephone Encounter - Rosalind Smith RN - 05/19/2024 3:59 PM EDT Jan Fisher Pt seen for home visit today. Wanted to give you an update on how Remeron is working. Pt reports it is doing well with helping her to sleep at night. She reports she has been sleeping all night since she starting taking it. However, she still has issues with being tired during that day and taking a lot of naps - this has not changed. She also reports it has not changed her appetite at all, it is still very poor. Thank you! documented in this encounter Plan of Treatment Upcoming Encounters Date Type Department Care Team (Late st Contact Info) Description 06/10/2024 8:30 AM EST Imaging Radiology [address] 132 [facility] [place] [address] 06/11/2024 10:50 AM EST Anticoagulation Pharmacy, [place] [address] [place] [address] [facility] [address] [place] [address] 06/11/2024 11:00 AM EST Office Visit Pharmacy, [place] [address] [place] [address] [facility] [address] [place] [address] 06/19/2024 4:00 PM EST [facility] Visit [facility], [facility] [address] [facility] [place] [address] Rosalind Smith RN 132 [facility] [place] [address] 07/17/2024 9:00 AM EST Office Visit Cardiology, [facility] [address] [facility] [place] [address] Nesha Denney CRNP 132 [facility] [place] [address] 09/05/2024 9:30 AM EST Office Visit Podiatry [address] [place] [phone] Kenny Archibald, JASMINE [address] [place] [address] 11/10/2024 11:00 AM EDT Office Visit [facility], [place] [facility] [address] [facility] [address] [place] [address] Natalia Heller PA-C [address] [facility] [place] [address] Scheduled Procedures Name Priority Associated Diagnoses Date/Ti me COLONOSCOPY FLEXIBLE PROXIMA L DIAGNOSTIC Recall Screening for colon cancer Health Maintenance Due Date Last Done Comments *BISPHONATE OR OTHER ACCEPTABLE MEDICATION NEEDED FOR OSTEOPOROSIS (REFER TO SMARTSET #1146) 08/07/2014 Zoster Vaccines (2 of 3) 04/20/2017 02/23/2017 Diabetic Foot Exam 01/18/2022 01/18/2021, 0 02/18/2019, 02/19/2018, Additional history exists Adult Wellness Visit 03/27/2023 03/27/2022, 01/19/20 21 [...] 05/20/2025 05/20/2024, , 10/28/2020, Additional history exists Pneumococcal Vaccine: 65+ Years [...] D LEVEL ONCE IN A LIFETIME-USE SMARTSET# 90343 Completed 05/09/2024, 06/18/2020, 07/25/2019, Additional history exists [...] this encounter Medical Devices Implanted Type Area Director Of The Biophysics Facility Device Identifier Shelf Expiration Date Model / Serial / Lot Graft Cervical 6x8 [id number] - [id number] Implanted:Qt y: 2 on 08/21/2008 [place] [facility] [place] - Human Spine Cervical [employer] [id number] / / Screw Spine 14mm -014 - [id number] Implanted:Qt y: 2 on 08/21/2008 at [place] [facility] [place] N/A: Spine Cervical [employer] DEPUY [id number] / / Depuy [place] 14 Mm Sd Con Scr Implanted:Qt y: 2 on 08/21/2008 at [place] [facility] [place] N/A: Spine Cervical [employer] DEPUY [id number] / / Description:Depuy [place] 14 mm SD con SCR 34 Mm Plate Implanted:Qt y: 1 on 08/21/2008 at [place] [facility] [place] N/A: Spine Cervical / / Description:34 mm Depuy plat e 14 Mm Variable Rescue Implanted:Qt y: 2 on 08/21/2008 at [place] [facility] [place] N/A: Spine Cervical [id number] / / Description:14 mm variable r escue Screw 3.5x14 Mntr Fa [id number] - [id number] Implanted:Qt y: 10 on 07/13/2010 [place] [facility] [place]/A: Spine Cervical [place] : [employer] [id number] / / Devaughn [id number] - [id number] Implanted:Qt y: 1 on 07/13/2010 at [place] [facility] [place]/A: Spine Cervical [place] : [employer] [id number] / / Screw Inner Mntr [id number] - [id number] Implanted:Qt y: 8 on 07/13/2010 at [place] [facility] [place] N/A: Spine Cervical [place] : [employer] [id number] / / Nut Outer Xcon [id number] - [id number] Implanted:Qt y: 2 on 07/13/2010 at [place] [facility] [place] N/A: Spine Cervical [place] : [employer] [id number] / / Screw Inner Xcon [id number] - [id number] Implanted:Qt y: 2 on 07/13/2010 at [place] [facility] [place] N/A: Spine Cervical [place] : [employer] [id number] / / Plate 35mm Xcon [id number] - [id number] Implanted:Qt y: 1 on 07/13/2010 at [place] [facility] [place] N/A: Spine Cervical JN[place] : [employer] [id number] / / documented as of this encounter [...] the patient have Health Care Power of Efficiency Manager? No * Full Code Date Activated [...] Power of Attor kim? No Care Teams Drill Rig Operator Helper Relationship Specialty Start Date End Date Natalia Heller PA-C [address] [facility] [place] [address] PCP - General Physician Vice President Marketing & Development 01/06/24 documented as of this encounter
--- OUTSIDE RECORDS SUMMARY | 2024-09-05 13:25 | External Medical Summary | Summary of Care ---
Author Name Unknown Organization [facility] Address [address] [address] Phone [phone] Care Team Providers Care Steno Pool Supervisor Name Role Phone Natalia Heller PA-C Primary Care Provider [phone] Encounter Details Date Type Department Care Team (Late st Contact Info) Description 05/20/2024 Population Health External Data Unspecified Department Allergies Active Allergy Reactions Criticality Noted Date Comments Alendronate Sodium 06/24/2012 Burning sensation and difficulty breathing Proton Pump Inhibitors Hives 02/20/2002 nexium documented as of this encounter (statuses as of 05/21/2024) Medications Medication Sig Dispensed Refills Start Date End Date Status Multiple Vitamin (DAILY VALUE MULTIVITAMIN) Tablet Take 1 Tablet by mouth in the morning. Active Fluticasone Propionate 50 MCG/ACT Nasal Suspension (Flonase)Indications :Chronic rhinitis Administer 2 Sprays into each nostril in the morning. 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 10/04/2023 Active Accu-Chek Softclix LancetsIndications:T ype 2 diabetes mellitus with foot ulcer, with long-term current use of insulin ([facility]),DM (diabetes mellitus) type II, controlled, with peripheral vascular disorder ([facility]) Use to test blood glucose 4 times daily. DX: E11.9 400 Each 3 10/04/2023 Active Rosuvastatin Calcium 20 MG Oral Tablet (Crestor)Indications :Dyslipidemia, goal LDL below 70 Take 1 Tablet by mouth in the morning. 90 Tablet 3 10/25/2023 Active Insulin Aspart 100 UNIT/ML Injection Solution (NovoLOG) Inject under the skin. 310 units in pump. Getting from [employer] Active Aspirin 81 MG Oral Tablet [...] [place], goal below 130/80,Coronary artery disease involving [place] coronary artery of [place] heart without angina pectoris TAKE ONE TABLET [...] skin once a week. Sundays. Obtaining from [email or web address]. Active Nitroglycerin 0.3 MG Sublingual Tablet Sublingual (Nitrostat)Indicatio ns:Coronary artery disease of [place] artery of [place] heart with stable angina pectoris (HCC) PLACE 1 TABLET UNDER THE TONGUE EVERY 5 MINUTES UP TO 3 DOSES NEEDED FOR CHEST PAIN. IF NO RELIEF CALL 911 OR GO TO ER 25 Tablet 11 02/05/2024 Active Albuterol Sulfate HFA 108 (90 Base) [...] TWICE A DAY 180 Capsule 1 05/09/2024 Active Mirtazapine 30 MG Oral Tablet (Remeron)Indications :Primary insomnia,Poor appetite Take 1 Tablet by mouth at bedtime. 30 Tablet 05/09/2024 Active documented as of this encounter (statuses as of 05/21/2024) Active Problems Problem Noted Date Diagnosed Date [...] of n ative artery of [place] heart with stable angina pectoris 12/08/2020 Last [...] the room") Medication Regimen All Classes - [facility] Remote Patient Monitoring Vendor: No Connected RPM Device(s): Traditional Pulse Ox Exacerbation plan Solumedrol 40mg IM/IV Chest Xray Additional Comments: Breathing at baseline today Senile osteoporosis 02/02/2012 DYSLIPIDEMIA, GOAL LDL BELOW 100 07/15/2009 Overview: Per Lipid Taxonomy. Cervical spinal stenosis 08/21/2008 [facility] current use of anticoagulant therapy 0 05/03/2005 documented as of this encounter (statuses as of 05/21/2024) Resolved Problems Problem Noted Date Diagnosed Date [...] as of this encounter (statuses as of 05/21/2024) Immunizations Name Administration Dates Next Due COVID-19 [...] 11/19/2023 Does the household have a [facility]ension [facility] hospitalr source of income? (Household - for [...] Care Team (Late st Contact Info) Description 05/23/2024 8:50 AM EDT [facility]tico[facility], [place] [address] [facility] [address] [place], [facility] [address] [place] [address] 06/03/2024 9:45 AM EDT Office Visit Podiatry [facility], [address] [place] [phone] Kenny Archibald [facility] [address] [place] [address] 06/10/2024 8:30 AM EST Imaging Radiology [address] 132 [facility] [place] [address] 06/11/2024 11:00 AM EST Office Visit Pharmacy, [place] [address] [place] [address] [facility] [address] [place] [facility] [place] [address] 06/19/2024 4:00 PM EST [facility] Visit [facility] 132 [facility] [place] [address] Rosalind Smith, RN [address] [place] [address] 07/17/2024 9:00 AM EST Office Visit Cardiology, [facility] [address] [place] [address] Nesha Denney CRNP [address] [place] [address] 11/10/2024 11:00 AM EDT Office Visit [facility], [place] [address] [facility] [address] Natalia Heller PA-C [address] [place] [facility] [place] [facility] [place] [address] Scheduled Procedures Name Priority Associated Diagnoses Date/Ti [...] 05/09/2025 05/09/2024, 03/2024, 11/23/2023, Additional history exists Pneumococcal Vaccine: [...] D LEVEL ONCE IN A LIFETIME-USE SMARTSET# 51645 Completed 05/09/2024, 06/18/2020, 07/25/2019, Additional history exists [...] this encounter Medical Devices Implanted Type Area Sas Developer Device Identifier Shelf Expiration Date Model / Serial / Lot Graft Cervical 6x8 [id number] - [id number] Implanted:Qt y: 2 on 08/21/2008 [place] [facility] [place] Tissue - Human Spine Cervical [employer] [id number] / / Screw Spine 14mm -014 - [id number] Implanted:Qt y: 2 on 08/21/2008 at [place] [facility] [place] N/A: Spine Cervical [employer] DEPUY [id number] / / Depuy [place] 14 Mm Sd Con Scr Implanted:Qt y: 2 on 08/21/2008 at [place] [facility] [place] N/A: Spine Cervical [employer] DEPUY 60014 / / Description:Depuy skyline 14 mm SD con SCR 34 Mm Plate Implanted:Qt y: 1 on 08/21/2008 at [place] [facility] [place] N/A: Spine Cervical / / Description:34 mm Depuy plat e 14 Mm Variable Rescue Implanted:Qt y: 2 on 08/21/2008 at [place] [facility] [place] N/A: Spine Cervical [id number] / / Description:14 mm variable r escue Screw 3.5x14 Mntr Fa [id number] - [id number] Implanted:Qt y: 10 on 07/13/2010 at [place] [facility] [place] N/A: Spine Cervical JN[place] : [employer] [id number] / / Devaughn [id number] - [id number] Implanted:Qt y: 1 on 07/13/2010 at [place] [facility] [place] N/A: Spine Cervical JN[place] : [employer] [id number] / / Screw Inner Mntr [id number] - [id number] Implanted:Qt y: 8 on 07/13/2010 at [place] [facility] [place] N/A: Spine Cervical JN[place] : [employer] [id number] / / Nut Outer Xcon [id number] - [id number] Implanted:Qt y: 2 on 07/13/2010 at [place] [facility] [place] N/A: Spine Cervical JN[place] : [employer] [id number] / / Screw Inner Xcon [id number] - [id number] Implanted:Qt y: 2 on 07/13/2010 at [place] [facility] [place] N/A: Spine Cervical JN[place] : [employer] [id number] / / Plate 35mm Xcon [id number] - [id number] Implanted:Qt y: 1 on 07/13/2010 at [place] [facility] [place] N/A: Spine Cervical JN[place] : [employer] [id number] / / documented as of this encounter [...] the patient have Health Care Power of Automobile Or Truck Rental Dispatcher? No * Full Code Date Activated Date [...] Power of Attor kim? No Care Teams Steno Pool Supervisor Relationship Specialty Start Date End Date Natalia Heller PA-C [address] [facility] [place] [address] PCP - General Physician Fire Management Specialist 01/06/24 documented as of this encounter
--- OUTSIDE RECORDS SUMMARY | 2024-09-05 13:25 | External Medical Summary | Summary of Care ---
Author Name Unknown Organization [facility] Address [address] [address] Phone [phone] Care Team Providers Care Medical Nurse Name Role Phone Natalia Heller PA-C Primary Care Provider [phone] Encounter Details Date Type Department Care Team (Late st Contact Info) Description 05/19/2024 4:00 PM EDT Home Visit [facility], [facility] [address] [place] [address] Rosalind Smith, RN [address] [place] [address] Allergies Active Allergy Reactions Criticality Noted Date Comments Alendronate Sodium 06/24/2012 Burning sensation and difficulty breathing Proton Pump Inhibitors Hives 02/20/2002 nexium documented as of this encounter (statuses as of 05/19/2024) Medications Medication Sig Dispensed Refills Start Date End Date Status Multiple Vitamin (DAILY VALUE MULTIVITAMIN) Tablet Take 1 Tablet by mouth in the morning. Active Fluticasone Propionate 50 MCG/ACT Nasal Suspension (Flonase)Indications :Chronic rhinitis Administer 2 Sprays into each nostril in the morning. 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 10/04/2023 Active [...] skin. 310 units in pump. Getting from [employer] PAP Active Aspirin 81 MG Oral Tablet [...] [place], goal below 130/80,Coronary artery disease involving rampart coronary artery of rampart heart without angina pectoris TAKE ONE TABLET [...] skin once a week. Sundays. Obtaining from [facility]. 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 (Household - for ages [...] Sign Reading Time Taken Comments Blood Pressure 118/62 05/19/2024 4:14 PM EDT Pulse 80 05/19/2024 4:14 PM EDT Temperature 36.2 C (97.1 F) 05/19/2024 4:14 PM ED T Respiratory Rate 18 05/19/2024 4:14 PM EDT Oxygen Saturation 96% 05/19/2024 4:14 PM EDT Inhaled Oxygen Concentration - - [...] as of this encounter Progress Notes * Rosalind Smith RN - 05/19/2024 4:23 PM EDT Current Concerns: Pt seen for return RNCM visit Recently started remeron to help with sleep - she reports it did help with her sleeping better at night but she is still tired and sleep a lot during the day She reports it did not help her appetite much however she eats even though her appetite isn't good She reports her has been baking a lot - apple pies, dumplings and she eats whatever he gives her She reports she sometimes doesn't eat breakfast but will eat all of lunch and supper and also has asnack, such as a "creamsicle" in the evenings A1C on 05/09 was 11.1 It was 10.2 six months ago in November 2023 [facility] involved She was instructed to take 15 units with desserts or baked goods and pt reports that she usually doesn't do it Pt was unable to show a record of blood sugars but reports they usually range in 100 -200's in the am and 300-400's in the pm Will update [facility] clinic Physical Exam: Physical Exam Constitutional: General: She [...] Systems Constitutional: Positive for fatigue. HENT: Negative. Eyes: Negative. Respiratory: Positive for shortness of breath (GARCIA - at baseline). Cardiovascular: Negative. Gastrointestinal: Negative. Genitourinary: Negative. Musculoskeletal: Positive for arthralgias and gait problem. Skin: Negative. Neurological: Positive for numbness (BLE). Psychiatric/Behavioral: Negative. Care Plan Goal Progress: Orders Placed: No orders of the defined types were placed in this encounter. Medications Given: Care Gaps: Care Gaps Care gaps closed this contact:: Education;Medications;Plan of Care (POC) (05/19/241638) Type of education: Clinical/disease (05/19/241638) Type of medication care gap: Medication adherence;Medication optimization (05/19/241638) Type of plan of care (POC) care gap: Creation of plan of care (POC) and/or Integrated Care Plan (ICP);Education and review of exacerbation plan (05/19/241638) documented in this encounter Plan of Treatment Upcoming Encounters Date Type Department Care Team ([facility] Contact Info) Description 05/23/2024 8:50 AM EDT Anticoagulation Pharmacy, [place] [address] [place] [address] [facility] [address] [place] [address] 06/03/2024 9:45 AM EDT Office Visit Podiatry [address] [place] [address] Kenny Archibald, JASMINE [facility] [place] [address] 06/10/2024 8:30 AM EST Imaging Radiology [address] [facility] [place] [address] 06/11/2024 11:00 AM EST Office Visit [facility] [place] [address] [facility] [address] [facility] [address] [place] [address] 06/19/2024 4:00 PM EST Home Visit [facility], [facility] [address] [facility] [place] [address] Rosalind Smith RN 132 [facility] [place] [address] 07/17/2024 9:00 AM EST Office Visit Cardiology, [facility] [address] [facility] [place] [address] Nesha Denney CRNP [address] [place] [address] 11/10/2024 11:00 AM EDT Office Visit [facility] [place] [address] [facility] [address] Natalia Heller PA-C [address] [place] [address] Scheduled Procedures Name Priority Associated Diagnoses Date/Ti [...] D LEVEL ONCE IN A LIFETIME-USE SMARTSET# [id number] Completed 05/09/2024, 06/18/2020, 07/25/2019, Additional history exists [...] this encounter Medical Devices Implanted Type Area Woodworking Bench Carpenter Device Identifier Shelf Expiration Date Model / Serial / Lot Graft Cervical 6x8 [id number] - [id number] Implanted:Qt y: 2 on 08/21/2008 at [place] [facility] [place] - Human Spine Cervical [employer] [id number] / / Screw Spine 14mm 1868-50-014 - [id number] Implanted:Qt y: 2 on 08/21/2008 at [place] [facility] N/A: Spine Cervical [employer] DEPUY 8-50-014 / / Depuy [place] 14 Mm Sd Con Scr Implanted:Qt y: 2 on 08/21/2008 at [place] [facility] [place]/A: Spine Cervical [employer] DEPUY 860-014 / / Description:Depuy skyline 14 mm SD con SCR 34 Mm Plate Implanted:Qt y: 1 on 08/21/2008 at [place] [facility] N/A: Spine Cervical 1868-034 / / Description:34 mm Depuy plat e 14 Mm Variable Rescue Implanted:Qt y: 2 on 08/21/2008 at [place] [facility] N/A: Spine Cervical 186854-014 / / Description:14 mm variable r escue Screw 3.5x14 Mntr Fa [id number] - [id number] Implanted:Qt y: 10 on 07/13/2010 at [place] [facility] [place]/A: Spine Cervical JNJ : [employer] [id number] / / Devaughn [id number] - [id number] Implanted:Qt y: 1 on 07/13/2010 at [place] [facility] [place]/A: Spine Cervical JNJ : [employer] [id number] / / Screw Inner Mntr [id number] - [id number] Implanted:Qt y: 8 on 07/13/2010 at [place] [facility] [place]/A: Spine Cervical JNJ : [employer] [id number] / / Nut Outer Xcon [id number] - [id number] Implanted:Qt y: 2 on 07/13/2010 at [place] [facility] [place]/A: Spine Cervical JNJ : [employer] [id number] / / Screw Inner Xcon [id number] - [id number] Implanted:Qt y: 2 on 07/13/2010 at [place] [facility] [place]/A: Spine Cervical JNJ : [employer] [id number] / / Plate 35mm Xcon [id number] - [id number] Implanted:Qt y: 1 on 07/13/2010 at [place] [facility] [place]/A: Spine Cervical JNJ : [employer] [id number] / / documented as of this encounter [...] the patient have Health Care Power of Certified Optician? No * Full Code Date Activated Date [...] Power of Attor kim? No Care Teams Medical Nurse Relationship Specialty Start Date End Date Natalia Heller PA-C [address] [place] [address] PCP - General Physician Manager Aviation 01/06/24 documented as of this encounter
--- OUTSIDE RECORDS SUMMARY | 2024-09-05 13:25 | External Medical Summary | Summary of Care ---
Author Name Unknown Organization [facility] Address [address] [facility] [place] [address] Phone [phone] Care Team Providers Care Manager Of Development Name Role Phone Natalia Heller PA-C Primary Care Provider [phone] [phone] Encounter Details Date Type Department Care Team (Late st Contact Info) Description 05/26/2024 Orders Only Outcomes Research Department [address] [place] [address] Fauzia Zamudio CHRA [employer] Research Other*[id number] Allergies Active Allergy Reactions Criticality Noted Date Comments Alendronate Sodium 06/24/2012 Burning sensation and difficulty breathing Proton Pump Inhibitors Hives 02/20/2002 nexium documented as of this encounter (statuses as of 05/26/2024) Medications Medication Sig Dispensed Refills Start Date End Date Status Multiple Vitamin (DAILY VALUE MULTIVITAMIN) Tablet Take 1 Tablet by mouth in the morning. Active Fluticasone Propionate 50 MCG/ACT Nasal Suspension (Flonase)Indications :Chronic rhinitis Administer 2 Sprays into each nostril in the morning. 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 10/04/2023 Active Accu-Chek [...] skin. 310 units in pump. Getting from [facility] PAP Active Aspirin 81 MG Oral Tablet [...] [place], goal below 130/80,Coronary artery disease involving yurok coronary artery of yurok heart without angina pectoris TAKE ONE TABLET BY MOUTH EVERY MORNING 90 Tablet 3 01/15/2024 5 Active metFORMIN HCl 1000 MG Oral Tablet (Glucophage)Indicati ons:DM type 1 causing neurological disease, not at goal ([facility]) TAKE ONE TABLET BY MOUTH TWICE A DAY WITH FOOD 200 Tablet 3 01/22/2024 5 Active Vitamin B12 500 MCG Oral Tablet Take by mouth daily. Active Ozempic (2 MG/DOSE) 8 MG/3ML Subcutaneous Solution Pen-injector (Semaglutide (2 MG/DOSE)) Inject 2 mg under the skin once a week. Sundays. Obtaining from [facility]. 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 0 05/03/2005 documented as of this encounter (statuses as of 05/26/2024) Resolved Problems Problem Noted Date Diagnosed Date [...] as of this encounter (statuses as of 05/26/2024) Immunizations Name Administration Dates Next Due COVID-19 [...] Care Team (Late st Contact Info) Description 05/27/2024 9:10 AM EDT Anticoagulation Pharmacy, [place] [address] [facility] [place] [address] [facility] [address] [place] [address] 06/03/2024 9:45 AM EDT Office Visit Podiatry [address] [place] [address] Kenny Archibald, [place] [address] [place] [address] 06/10/2024 8:30 AM EST Imaging Radiology [address] [place] [address] 06/11/2024 11:00 AM EST Office Visit [facility]acy, [place] [address] [facility] [address] [facility] [address] [facility] [place] [address] 06/19/2024 4:00 PM EST Home Visit [facility], [facility] [address] [place] [address] Rosalind Smith RN [address] [place] [address] 07/17/2024 9:00 AM EST Office Visit Cardiology, [facility] [address] [place] [address] Nesha Denney, AUDELIA [address] [place] [address] 11/10/2024 11:00 AM EDT Office Visit [facility] [address] [facility] [phone] Natalia Heller PA-C [address] [facility], [place] [address] Scheduled Orders Name Type Priority Associated Diagnoses Orde r Schedule MYCODE SUBSEQUENT ADULT Lab Routine [employer] Research Other*[id number] Every 6 Months for 2 Occurrences starting 05/26/2024 until 06/15/2025 Scheduled Procedures Name Priority Associated Diagnoses Date/Ti [...] 09/19/2022, Additional history exists GFR 05/09/2025 05/09/2024, 05/03/2024, 11/23/2023, Additional history exists Pneumococcal Vaccine: 65+ [...] D LEVEL ONCE IN A LIFETIME-USE SMARTSET# 63070 Completed 05/09/2024, 06/18/2020, 07/25/2019, Additional history exists [...] this encounter Medical Devices Implanted Type Area Drill Punch Operator Device Identifier Shelf Expiration Date Model / Serial / Lot Graft Cervical 6x8 [id number] - [id number] Implanted:Qt y: 2 on 08/21/2008 at OR [facility] Tissue - Human Spine Cervical [employer] [id number] / / Screw Spine 14mm 1867-50-014 - [id number] Implanted:Qt y: 2 on 08/21/2008 at OR [facility] N/A: Spine Cervical CARSON [employer] CARSON DEPUY 50-014 / / Depuy Donna 14 Mm Sd Con Scr Implanted:Qt y: [...] variable r escue Screw 3.5x14 Mntr Fa [id number] - [id number] Implanted:Qt y: 10 on 07/13/2010 at OR [facility] N/A: Spine Cervical JNJ : [employer] [id number] / / Devaughn [id number] - [id number] Implanted:Qt y: 1 on 07/13/2010 at OR [facility] N/A: Spine Cervical JNJ : [employer] [id number] / / Screw Inner Mntr [id number] - [id number] Implanted:Qt y: 8 on 07/13/2010 at OR [facility] N/A: Spine Cervical JNJ : [employer] [id number] / / Nut Outer Xcon [id number] - [id number] Implanted:Qt y: 2 on 07/13/2010 at OR [facility] N/A: Spine Cervical JNJ : [employer] [id number] / / Screw Inner Xcon [id number] - [id number] Implanted:Qt y: 2 on 07/13/2010 at OR [facility] N/A: Spine Cervical JNJ : [employer] [id number] / / Plate 35mm Xcon [id number] - [id number] Implanted:Qt y: 1 on 07/13/2010 at OR [facility] N/A: Spine Cervical JNJ : [employer] [id number] / / documented as of this encounter Visit Diagnoses Diagnosis [employer] Research Other*[id number] documented in this encounter Advance Directives * [...] the patient have Health Care Power of Card Checker? No * Full Code Date Activated Date [...] Power of Attor kim? No Care Teams Manager Of Development Relationship Specialty Start Date End Date Natalia Heller PA-C [address] [facility] [place] [address] PCP - General Physician Veterans Services Specialist 01/06/24 documented as of this encounter
--- OUTSIDE RECORDS SUMMARY | 2024-09-05 13:25 | External Medical Summary | Summary of Care ---
Author Name Unknown Organization [facility] Address [address] [address] Phone [phone] Care Team Providers Care Warehouse Order Selector Name Role Phone Natalia Erazo PA-C Primary Care Provider [phone] Reason for Visit * Reason Comments Medication Refill Encounter Details Date Type Department Care Team (Late st Contact Info) Description 05/08/2024 Refill [facility] [address] [place] [address] Alfa Jaramillo MD [address] [place] [address] Diabetic polyneuropathy associated with type 1 diabetes mellitus (HCC) Allergies Active Allergy Reactions Criticality Noted Date Comments Alendronate Sodium 06/24/2012 Burning sensation and difficulty breathing Proton Pump Inhibitors Hives 02/20/2002 nexium documented as of this encounter (statuses as of 05/09/2024) Medications Medication Sig Dispensed Refills Start Date [...] long-term current use of insulin ([facility]),DM (diabetes mellitus) type II, controlled, with peripheral vascular disorder ([facility]) Use to test blood glucose 4 times daily. E11.9 400 Strip 3 10/04/2023 Active Accu-Chek Guide Me w/Device KitIndications:Type 2 diabetes mellitus with foot ulcer, with long-term current use of insulin ([facility]),DM (diabetes mellitus) type II, controlled, with peripheral vascular disorder ([facility]) Use as directed. 10/04/2023 Acti ve Accu-Chek Softclix LancetsIndications: Type 2 diabetes mellitus with foot ulcer, with long-term current use of insulin ([facility]),DM (diabetes mellitus) type II, controlled, with peripheral vascular disorder ([facility]) Use to test blood glucose 4 times daily. DX: E11.9 400 Each 3 10/04/2023 Active Rosuvastatin Calcium 20 MG Oral Tablet (Crestor)Indication s:Dyslipidemia, goal LDL below 70 Take 1 Tablet by mouth in the morning. 90 Tablet 3 10/25/2023 Active Insulin Aspart 100 UNIT/ML Injection Solution (NovoLOG) Inject under the skin. 310 units in pump. Getting from [employer] P[facility] Active Aspirin 81 MG Oral Tablet [...] HTN, goal below 130/80,Coronary artery disease involving [place] coronary artery of [place] heart without angina pectoris TAKE ONE TABLET [...] skin once a week. Sundays. Obtaining from [employer]. Active Nitroglycerin 0.3 MG Sublingual Tablet Sublingual (Nitrostat)Indicati ons:Coronary artery disease of [place] artery of [place] heart with stable angina pectoris (HCC) PLACE [...] 180 Capsule 1 05/09/2024 11/09/19 25 Active Pregabalin 150 MG Oral Capsule (Lyrica)Indications :Diabetic polyneuropathy associated with type 1 diabetes mellitus (HCC) TAKE ONE CAPSULE BY MOUTH TWICE A DAY 180 Capsule 1 08/20/2023 05/08/20 24 Discontinu ed(Refill) documented as of this encounter (statuses as of 05/09/2024) Active Problems Problem Noted Date Diagnosed Date [...] h[place]apai heart with stable angina pectoris 12/08/2020 Last [...] as of this encounter (statuses as of 05/09/2024) Resolved Problems Problem Noted Date Diagnosed Date [...] as of this encounter (statuses as of 05/09/2024) Immunizations Name Administration Dates Next Due COVID-19 [...] Miscellaneous Notes * Telephone Encounter - Natalia Erazo PA-C - 05/09/2024 5:13 PM EDTSigned Prescriptions: Disp Refills Pregabalin 150 MG Oral Capsule (Lyrica) 180 Ca*1 Sig: TAKE ONE CAPSULE BY MOUTH TWICE A DAY Authorizing Provider: NATALIA ERAZO * Telephone Encounter - Billy Khan RP - 05/09/2024 3:44 PM EDTPending Prescriptions: Disp Refills Pregabalin 150 MG Oral Capsule (Lyrica) 180 Ca*1 Sig: TAKE ONE CAPSULE BY MOUTH TWICE A DAY * Telephone Encounter - Billy Khan RP - 05/09/2024 3:44 PM EDTPending Prescriptions: Disp Refills Pregabalin 150 MG Oral Capsule (Lyrica) 180 Ca*1 Sig: TAKE ONE CAPSULE BY MOUTH TWICE A DAY * Telephone Encounter - Billy Khan RP - 05/09/2024 3:43 PM EDT I have reviewed the patients controlled substance dispensing history in the Prescription Drug Monitoring Program in compliance with the [facility] regulations before prescribing a controlled substance. PDMP checked on 05/09/2024. Pending Prescriptions: Disp Refills Pregabalin 150 MG Oral Capsule (Lyrica) 180 Ca*1 Sig: TAKE ONE CAPSULE BY MOUTH TWICE A DAY Last Visit: 01/03/2024 (in office), Visit date not found (telemedicine) Next Visit: 11/10/2024 Date medication was last filled: 01-09-24 Date medication is due for refill: 04-07-24 [facility] Is this request for a controlled substance? Yes and Urine Drug Screen Not completed Toxicology results: No results found. However, due to the size of the patient record, not all encounters were searched.Please check Results Review for a complete set of results. Please approve if appropriate. Billy Khan, Joycelyn.Ph. Clinical Pharmacist [facility] [address] [place] [address]: [phone] 05/09/2024,3:43 PM * Telephone Encounter - Zaida Raygoza PHARM Tech - 05/09/2024 2:59 PM EDT Pharmacy is requesting a 90-day supply, pre-edited RXs as such. Please review and approve if appropriate. Pending Prescriptions: Disp Refills Pregabalin 150 MG Oral Capsule (Lyrica) 180 Ca*1 Sig: TAKE ONE CAPSULE BY MOUTH TWICE A DAY Last Visit: 01/03/2024 (in office), Visit date not found (telemedicine) 11/10/2024 If no future appointments scheduled, and last appointment is greater than a year ago, please schedule patient for an appointment Last date the medication was ordered: 08/20/2023 Patient Phone Numbers Labs: Lab Results Component Value Date/Time CREAT 0.8 05/09/2024 09:11 AM CREAT 1.05 11/16/2023 12:00 AM CREAT 0.8 06/18/2020 09:03 AM POTASSIUM 5.2 (H) 05/09/2024 09:11 AM POTASSIUM 4.1 11/16/2023 12:00 AM POTASSIUM 4.6 06/18/2020 09:03 AM TSH 3.18 10/19/2023 10:23 AM TSH 3.12 07/25/2019 09:28 AM LDL 51 11/13/2023 04:31 AM LDL 102 06/18/2020 09:03 AM LDL 81 10/19/2017 09:32 AM ALT 24 05/09/2024 09:11 AM ALT 35 06/18/2020 09:03 AM ALT 43 07/09/1996 11:15 AM HGBA1C 11.2 (H) 05/09/2024 08:23 AM HGBA1C 10.4 (A) 11/16/2023 12:00 AM HGBA1C 10.6 (H) 06/18/2020 09:03 AM HGBA1C 7.7 (H) 07/09/1996 11:15 AM documented in this encounter Plan of Treatment Upcoming Encounters Date Type Department Care Team (Late st Contact Info) Description 05/16/2024 8:30 AM EDT Home Visit [facility], [facility] [address] [address] Rosalind Smith RN [address] [address] 05/16/2024 11:00 AM EDT Nurse Only Ancillary Department, [place] [address] [facility], [place] [address] [place], Nurse [address] [facility], [place] [address] 05/23/2024 8:50 AM EDT Anticoagulation Pharmacy, [place] [address] [facility], [place] [address] [place], [facility] [address] [place] [facility] [address] 06/03/2024 9:45 AM EDT Office Visit Podiatry [address] [phone] Kenny Archibald, [address] [address] 06/10/2024 8:30 AM EST Imaging Radiology [address] [facility] [address] 06/11/2024 11:00 AM EST Office Visit Pharmacy, [place] [address] [place] [address] [facility] [address] [place] [address] 07/17/2024 9:00 AM EST Office Visit Cardiology, [facility] [address] [facility] [address] Nesha Denney CRNP [address] [facility] [place] [address] 11/10/2024 11:00 AM EDT Office Visit Family Practice, [place] [address] [phone] Natalia Erazo PA-C [address] [place] [address] Scheduled Procedures Name Priority Associated Diagnoses Date/Ti [...] Completed 04/15/2024, 04/04/2023, 05/08/2022, Additional history exists VITAMIN D LEVEL ONCE IN A LIFETIME-USE SMARTSET# 04676 Completed 05/09/2024, 06/18/2020, 07/25/2019, Additional history exists [...] this encounter Medical Devices Implanted Type Area Orthopaedic General Device Identifier Shelf Expiration Date Model / Serial / Lot Graft Cervical 6x8 [id number] - [id number] [place]ed:Qt y: 2 [place] [facility] [place] Human Spine Cervical [employer] [id number] / / Screw Spine 14mm 50-014 - [id number] Implanted:Qt y: 2 on 08/21/2008 [place] [facility] [place]/A: Spine Cervical [employer] DEPUY [id number] / / Depuy [place] 14 Mm Sd Con Scr Implanted:Qt y: 2 on 08/21/2008 [place] [facility] [place]: Spine Cervical [employer] DEPUY 60-014 / / Description:Depuy skyline 14 mm SD con SCR 34 Mm Plate Implanted:Qt y: 1 on 08[place]21/2008 [place] [facility] [place]A: Spine Cervical 034 / / Description:34 mm Depuy plat e 14 Mm Variable Rescue Implanted:Qt y: 2 on 08/21/2008 [place] [facility] [place]: Spine Cervical [id number] / / Description:14 mm variable r escue Screw 3.5x14 Mntr Fa [id number] - [id number] Implanted:Qt y: 10 on 07[place]13/2010 [place] [facility] [place]: Spine Cervical JNJ : [employer] [id number] / / Devaughn [id number] - [id number] Implanted:Qt y: 1 on 07[place]13/2010 [place] [facility] [place]: Spine Cervical JNJ : [employer] [id number] / / Screw Inner Mntr [id number] - [id number] Implanted:Qt y: 8 on 07/13/2010 [place] [facility] [place]: Spine Cervical JNJ : ETH[employer]ON [employer]ATIONS [id number] / / Nut Outer Xcon [id number] - [id number] Implanted:Qt y: 2 on 07[place]13/2010 [place] [facility] [place]: Spine Cervical JNJ : ETH[employer]ON [employer]ATIONS [id number] / / Screw Inner Xcon [id number] - [id number] Implanted:Qt y: 2 on 07/13/2010 [place] [facility] [place]: Spine Cervical JNJ : ETH[employer]ON [employer]ATIONS [id number] / / Plate 35mm Xcon [id number] - [id number] Implanted:Qt y: 1 on 07[place]13/2010 [place] [facility] [place]: Spine Cervical JNJ : ETH[employer]ON C[employer] [id number] / / documented as of this encounter Visit Diagnoses Diagnosis Diabetic polyneuropathy associated with type 1 diabetes mellitus (HCC) documented in this encounter Advance Directives [...] the patient have Health Care Power of Market Intelligence Consultant? No * Full Code Date Activated [...] Power of Attor kim? No Care Teams Warehouse Order Selector Relationship Specialty Start Date End Date Natalia Earzo PA-C [address] [facility] [place] [address] PCP - General Physician Sports Fitness And Wellness Director 01/06/24 documented as of this encounter
--- OUTSIDE RECORDS SUMMARY | 2024-09-05 13:25 | External Medical Summary | Summary of Care ---
Author Name Unknown Organization [facility] Address [address] [facility] [place] [address] Phone [phone] Care Team Providers Care Bank Representative Name Role Phone Natalia Heller PA-C Primary Care Provider [phone] Reason for Visit * Reason Comments Outpatient Testing Encounter Details Date Type Department Care Team (Late st Contact Info) Description 05/09/2024 9:20 AM EDT Laboratory Laboratory, [place] [address] [place] [address] [place], Laboratory [address] [place] [address] [place] Other*[id number]; Type 2 diabetes mellitus with foot ulcer, with long-term current use of insulin ([facility]); Dyslipidemia, goal LDL below 70; COPD, moderate ([facility]); Malaise and fatigue; Diabetic polyneuropathy associated with type 1 diabetes mellitus ([facility]); Primary insomnia Allergies Active Allergy Reactions [...] Warfarin Sodium 5 MG Oral Tablet (Coumadin)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 E11.9 400 Strip 3 10/04/2023 Active Accu-Chek Guide Me w/Device KitIndications:Type 2 diabetes mellitus with foot ulcer, with long-term current use of insulin ([facility]),DM (diabetes mellitus) type II, controlled, with peripheral vascular disorder ([facility]) Use as directed. 10/04/2023 Acti ve Accu-Chek Softclix LancetsIndications: Type 2 diabetes mellitus with foot ulcer, with long-term current use of insulin ([facility]),DM (diabetes mellitus) type II, controlled, with peripheral vascular disorder ([facility]) Use to test blood glucose [...] TWICE A DAY 180 Tablet 3 01/07/2024 01/06/2025 Active Isosorbide Mononitrate ER 60 MG Oral Tablet Extended Release 24 Hour (Imdur)Indications: HTN, goal below 130/80,Coronary artery disease involving douglas coronary artery of douglas heart without angina pectoris TAKE ONE TABLET BY MOUTH EVERY MORNING 90 Tablet 3 01/15/2024 01/14/2025 Active metFORMIN HCl 1000 MG Oral Tablet (Glucophage)Indicat ions:DM type 1 causing neurological disease, 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 Active Ozempic (2 MG/DOSE) 8 MG/3ML Subcutaneous Solution Pen-injector (Semaglutide (2 MG/DOSE)) Inject 2 mg under the skin once a week. Sundays. Obtaining from [employer]. 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 IF NO RELIEF CALL 911 OR GO TO ER 25 Tablet 11 02/05/2024 02/04/2025 Active Albuterol Sulfate HFA 108 (90 Base) MCG/ACT Inhalation Aerosol SolutionIndications :Bronchitis, complicated Inhale 2 Puffs by mouth 4 times daily 54 g 3 02/06/2024 Active Sertraline HCl 50 MG Oral Tablet (Zoloft) TAKE 1 AND 1/2 TABLETS BY MOUTH AT BEDTIME 135 Tablet 1 05/06/2024 Active Mirtazapine 30 MG Oral Tablet (Remeron)Indication [...] artery disease of n ative artery of douglas heart with stable angina pectoris 12/08/2020 Last [...] Description 05/16/2024 8:30 AM EDT Home Visit [facility] [address] [facility] [address] Rosalind Smith RN [address] [facility] [place] [address] 05/16/2024 11:00 AM EDT Nurse Only Ancillary Department, [place] [address] [place] [address] [place], Nurse [address] [place] [address] 05/23/2024 8:50 AM EDT Anticoagulation Pharmacy, [place] [address] [place] [address] [place] [facility] [address] [place] [address] 06/03/2024 9:45 AM EDT Office Visit Podiatry [address] [place] [address] Kenny Archibald DPM [facility] [place] [address] 06/10/2024 8:30 AM EST Imaging Radiology [facility] [address] [facility] [place] [address] 06/11/2024 11:00 AM EST Office Visit Pharmacy, [place] [address] [facility] [place] [address] [place] [facility] [address] [place] [address] 07/17/2024 9:00 AM EST Office Visit Cardiology, [facility] [address] [facility] [place] [address] Nesha Denney CRNP [address] [facility] [place] [address] 11/10/2024 11:00 AM EDT Office Visit [facility], [place] [address] [facility] [phone] Natalia Heller PA-C [address] [place] [address] Pending Results Name Type Priority Associated Diagnoses Date /Time MYCODE SUBSEQUENT ADULT Lab Routine [employer] Other*[id number] 05/09/2024 9:11 AM EDT HEMOGLOBIN A1C Lab Routine Type 2 diabetes mellitus with foot ulcer, with long-term current use of insulin ([facility]) 05/09/2024 9:11 AM EDT COMPREHENSIVE METABOLIC PANEL Lab Routine Dyslipidemia, goal LDL below 70 Type 2 diabetes mellitus with foot ulcer, with long-term current use of insulin ([facility]) 05/09/2024 9:11 AM EDT AOVUN-4-CIINPENUYMT, QN Lab Routine COPD, moderate ([facility]) 05/09/2024 9:11 AM EDT VITAMIN B12 Lab Routine Malaise and fatigue Diabetic polyneuropathy associated with type 1 diabetes mellitus ([facility]) Primary insomnia 05/09/2024 9:11 AM EDT TSH Lab Routine Malaise and fatigue Diabetic polyneuropathy associated with type 1 diabetes mellitus (HCC) Primary insomnia 05/09/2024 9:11 AM EDT T4, FREE Lab Routine Malaise and fatigue Diabetic polyneuropathy associated with type 1 diabetes mellitus (HCC) Primary insomnia 05/09/2024 9:11 AM EDT 25-HYDROXY VITAMIN D Lab Routine Malaise and fatigue Diabetic polyneuropathy associated with type 1 diabetes mellitus (HCC) Primary insomnia 05/09/2024 9:11 AM EDT MYCODE SST1 Lab Routine [employer] Other*[id number] 05/09/2024 9:11 AM EDT MYCODE SST2 Lab Routine [employer] Other*[id number] 05/09/2024 9:11 AM EDT ALBUMIN / CREATININE RATIO, URINE Lab Routine Type 2 diabetes mellitus with foot ulcer, with long-term current use of insulin (HCC) 05/09/2024 9:40 AM EDT Scheduled Procedures Name Priority Associated [...] Adult Wellness Visit 03/27/2023 03/27/2022, 01/19/20 21 Albumin/Creatinine Ratio 01/03/202401/02/2 023, 09/19/2022, 04/18/2021, Additional history exists COVID-19 Vaccine ( season) 2024 05/08/2022, 07/20/2021, 10/13/2020, Additional history exists HbA1c 05/17/2024 11/16/2023, 04/0 04/2024, 08/30/2023, Additional history exists DTap/Tdap Vaccines (2 - Td or Tdap) 09/15/2024 09/15/2014, 07/15/2008, 02/09/1998 O2 ASSESSMENT COMPLETED IN PAST YEAR FOR COPD 09/18/2024 09/18/2023 Depression Monitoring 11/18/2024 11/19/2023 GFR 12/11/2024 12/12/2023, 11/04, 11/16/2023, Additional history exists DXA Scan 02/19/2025 02/19/2023, 02/03, 05/12/2020, Additional history exists Pneumococcal Vaccine: 65+ Years Completed 01/20/2016, 01/15/2015, 09/18/2006, Additional history exists VITAMIN D LEVEL ONCE IN A LIFETIME-USE SMARTSET# 10033 Completed 06/18/2020, 07/25/2019, 05/20/2015, Additional history exists Lung Cancer Screening Completed 12/22/2022 , 12/09/2021, 12/24/2020, Additional history exists Colonoscopy Discontinued 09/18/2023, 09/06, 11/16/2020, Additional history exists Colorectal Cancer Screening Discontinued RETIRED - COLONOSCOPY-EVERY 2 YRS AGES 18-100 Discontinued 09/18/2023, 09/18/2023, 11/16/2020, Additional history exists Influenza Vaccine (FLU shot) Completed 04/15/2024, 04/04/2023, 05/08/2022, Additional history exists Cologuard Discontinued Fecal Occult [...] this encounter Medical Devices Implanted Type Area Cryptographic Center Specialist Device Identifier Shelf Expiration Date Model / Serial / Lot Graft Cervical 6x8 [id number] - [id number] Implanted:Qt y: 2 on 08/21/2008 at [place] [facility] [place] - Human Spine Cervical [employer] [id number] / / Screw Spine 14mm [id number] - [id number] Implanted:Qt y: 2 on 08/21/2008 at [place] [facility] [place] N/A: Spine Cervical [employer] DEPUY 014 / / Depuy [place] 14 Mm Sd Con Scr Implanted:Qt y: 2 on 08/21/2008 at [place] [facility] [place] N/A: Spine Cervical [employer] DEPUY / / Description:Depuy skyline 14 mm SD con SCR 34 Mm Plate Implanted:Qt y: 1 on 08/21/2008 at [place] [facility] [place] N/A: Spine Cervical / / Description:34 mm Depuy plat e 14 Mm Variable Rescue Implanted:Qt y: 2 on 08/21/2008 at [place] [facility] [place] N/A: Spine Cervical / / Description:14 mm variable r escue Screw 3.5x14 Mntr Fa [id number] - [id number] Implanted:Qt y: 10 on 07/13/2010 at [place] [facility] [place] N/A: Spine Cervical JNJ : ETHICON C[employer]IOVATIONS [id number] / / Devaughn [id number] - [id number] Implanted:Qt y: 1 on 07/13/2010 at [place] [facility] [place] N/A: Spine Cervical JNJ : ETH[employer]ON C[employer]IOVATIONS [id number] / / Screw Inner Mntr [id number] - [id number] Implanted:Qt y: 8 on 07/13/2010 at [place] [facility] [place] N/A: Spine Cervical JNJ : ETH[employer]ON C[employer]ATIONS [id number] / / Nut Outer Xcon [id number] - [id number] Implanted:Qt y: 2 on 07/13/2010 at [place] [facility] [place] N/A: Spine Cervical JNJ : ETH[employer]ON [employer]ATIONS [id number] / / Screw Inner Xcon [id number] - [id number] Implanted:Qt y: 2 on 07/13/2010 at [place] [facility] [place] N/A: Spine Cervical JNJ : ETH[employer]ON [employer] [id number] / / Plate 35mm Xcon [id number] - [id number] Implanted:Qt y: 1 on 07/13/2010 at [place] [facility] [place] N/A: Spine Cervical JNJ : ETHICON C[employer]ATIONS [id number] / / documented as of this encounter Visit Diagnoses Diagnosis [employer] Other*[id number] Type 2 diabetes mellitus with foot ulcer, [...] the patient have Health Care Power of Quality Compliance Consultant? No * Full Code Date Activated [...] Power of Attor kim? No Care Teams Bank Representative Relationship Specialty Start Date End Date Natalia Heller PA-C [address] [place] [address] PCP - General Physician Formula Bottler 01/06/24 documented as of this encounter
--- OUTSIDE RECORDS SUMMARY | 2024-09-05 13:25 | External Medical Summary | Summary of Care ---
Author Name Unknown Organization [facility] Address [address] [facility] [place] [address] Phone [phone] Care Team Providers Care Core Piler Name Role Phone Natalia Erazo PA-C Primary Care Provider [phone] Reason for Visit * Reason Onset Date Comments Medication Refill 06/02/2024 Encounter Details Date Type Department Care Team (Late st Contact Info) Description 06/02/2024 Refill [facility] [address] [place] [address] Natalia Erazo PA-C [address] [place] [address] Primary insomnia; Poor appetite Allergies Active Allergy Reactions Criticality Noted Date Comments Alendronate Sodium 06/24/2012 Burning sensation and difficulty breathing Proton Pump Inhibitors Hives 02/20/2002 nexium documented as of this encounter (statuses as of 06/02/2024) Medications Medication Sig Dispensed Refills Start Date End Date Status Multiple Vitamin (DAILY VALUE MULTIVITAMIN) Tablet Take 1 Tablet by mouth in the morning. Active Fluticasone Propionate 50 MCG/ACT Nasal Suspension (Flonase)Indication s:Chronic rhinitis Administer 2 Sprays into each nostril in the morning. 16 g 1 11/01/2022 Active Warfarin Sodium 5 MG Oral Tablet (Coumadin)Indicatio ns:nursing home current use of anticoagulant therapy,Deep vein thrombosis (DVT) (HCC) TAKE ONE TABLET TO ONE AND ONE-HALF TABLET BY MOUTH EVERY DAY DIRECTED BY [facility]IC 135 Tablet 3 09/13/2023 09/12/19 25 Active Accu-Chek Guide In Vitro Strip (Glucose Blood)Indications:T ype 2 diabetes mellitus with foot ulcer, with long-term current use of insulin ([facility]),DM (diabetes mellitus) type II, controlled, with peripheral vascular disorder ([facility]) Use to test blood glucose 4 times daily. E11.9 400 Strip 3 10/04/2023 Active Accu-Chek Guide Me w/Device KitIndications:Type 2 diabetes mellitus with foot ulcer, with long-term current use of insulin ([facility]),DM (diabetes mellitus) type II, controlled, with peripheral vascular disorder ([facility]) Use as directed. 10/04/2023 Acti ve Accu-Chek Softclix LancetsIndications: Type 2 diabetes mellitus with foot ulcer, with long-term current use of insulin ([facility]),DM (diabetes mellitus) type II, controlled, with peripheral vascular disorder ([facility]) Use to test blood glucose 4 times daily. DX: E11.9 400 Each 3 10/04/2023 Active Rosuvastatin Calcium 20 MG Oral Tablet (Crestor)Indication s:Dyslipidemia, goal LDL below 70 Take 1 Tablet by mouth in the morning. 90 Tablet 3 10/25/2023 Active Insulin Aspart 100 UNIT/ML Injection Solution (NovoLOG) Inject under the skin. 310 units in pump. Getting from [employer] Active Aspirin 81 MG Oral Tablet [...] HTN, goal below 130/80,Coronary artery disease involving little [...] skin once a week. Sundays. Obtaining from [employer]. Active Nitroglycerin 0.3 MG Sublingual Tablet Sublingual (Nitrostat)Indicati ons:Coronary artery disease of [place] artery of [...] mouth at bedtime. 30 Tablet 06/02/2024 Active Mirtazapine 30 MG Oral Tablet (Remeron)Indication s:Primary insomnia,Poor appetite Take 1 Tablet by mouth at bedtime. 30 Tablet 05/09/2024 06/02/20 24 Discontinu ed(Refill) documented as of this encounter (statuses as of 06/02/2024) Active Problems Problem Noted Date Diagnosed Date [...] river heart with stable angina pectoris 12/08/2020 Last [...] Per Lipid Taxonomy. Cervical spinal stenosis 08/21/2008 nursing home current use of anticoagulant therapy 0 05/03/2005 documented as of this encounter (statuses as of 06/02/2024) Resolved Problems Problem Noted Date Diagnosed Date [...] as of this encounter (statuses as of 06/02/2024) Immunizations Name Administration Dates Next Due COVID-19 [...] No 11/19/2023 Does the household have a [facility] source of income? (Household - for ages [...] Telephone Encounter - Natalia Erazo PA-C - 06/02/2024 4:00 PM EDTSigned Prescriptions: Disp Refills Mirtazapine 30 MG Oral Tablet (Remeron) 30 Tab*0 Sig: Take 1 Tablet by mouth at bedtime. Authorizing Provider: NATALIA ERAZO * Telephone Encounter - Giles Unger OSA - 06/02/2024 3:38 PM EDT Did you pend patient's preferred pharmacy and medication before forwarding?yes Pharmacy: [id number] [address] Pending Prescriptions: Disp Refills Mirtazapine 30 MG Oral Tablet (Remeron) 30 Tab*0 Sig: Take 1 Tablet by mouth at bedtime. Last Visit: 05/09/2024 (in office), Visit date not found (telemedicine) Next Visit: 11/10/2024 If no future appointments scheduled, and last appointment is greater than a year ago, please schedule patient for a follow-up appointment Last date the medication was ordered: 05/09/24 90 day request Is this request for a controlled substance?No Urine Drug Screen:No results found. However, due to the size of the patient record, not all encounters were searched. Please check Results Review for a complete set of results. Patient Phone Numbers Labs: Lab Results Component Value Date/Time CREAT 0.8 05/09/2024 09:11 AM CREAT 1.05 11/16/2023 12:00 AM CREAT 0.8 06/18/2020 09:03 AM POTASSIUM 5.2 (H) 05/09/2024 09:11 AM POTASSIUM 4.1 11/16/2023 12:00 AM POTASSIUM 4.6 06/18/2020 09:03 AM TSH 1.95 05/09/2024 09:11 AM TSH 3.12 07/25/2019 09:28 AM LDL 51 11/13/2023 04:31 AM LDL 102 06/18/2020 09:03 AM LDL 81 10/19/2017 09:32 AM ALT 24 05/09/2024 09:11 AM ALT 35 06/18/2020 09:03 AM ALT 43 07/09/1996 11:15 AM HGBA1C 11.1 (H) 05/09/2024 09:11 AM HGBA1C 11.2 (H) 05/09/2024 08:23 AM HGBA1C 10.4 (A) 11/16/2023 12:00 AM HGBA1C 10.6 (H) 06/18/2020 09:03 AM HGBA1C 7.7 (H) 07/09/1996 11:15 AM documented in this encounter Plan of Treatment Upcoming Encounters Date Type Department Care Team ([facility] st Contact Info) Description 06/03/2024 9:45 AM EDT Office Visit Podiatry [address] [place] [address] Kenny Archibald, JASMINE [facility] [place] [address] 06/10/2024 8:30 AM EST Imaging Radiology [address] [facility] [place] [address] 06/11/2024 10:50 AM EST Anticoagulation Pharmacy, [place] [address] [facility] [place] [address] [facility] [address] [facility] [address] 06/11/2024 11:00 AM EST Office Visit Pharmacy, [place] [address] [facility], [place] [address] [facility] [address] [facility], [place] [address] 06/19/2024 4:00 PM EST Home Visit [facility] [address] [facility] [place] [address] Rosalind Smith RN [address] [facility] [place] [address] 07/17/2024 9:00 AM EST Office Visit Cardiology, [facility] [address] [facility] [place] [address] Nesha Denney CRNP [address] [facility] [place] [address] 11/10/2024 11:00 AM EDT Office Visit Family Practice, [place] [address] [facility] [id number] Natalia [facility]razo PA-C [address] [facility] [address] Scheduled Procedures Name Priority Associated Diagnoses Date/Ti [...] D LEVEL ONCE IN A LIFETIME-USE SMARTSET# 54541 Completed 05/09/2024, 06/18/2020, 07/25/2019, Additional history exists [...] this encounter Medical Devices Implanted Type Area Rn Wound Device Identifier Shelf Expiration Date Model / Serial / Lot Graft Cervical 6x8 [id number] - [id number] Implanted:Qt y: 2 on 08/21/[address] [facility] Tissue - Human Spine Cervical [employer] [id number] / / Screw Spine 14mm 850-014 - [id number] Implanted:Qt y: 2 on 08/21/[address] [facility] N/A: Spine Cervical [employer]Y 1868-50-014 / / Depuy [place] 14 Mm Sd Con Scr Implanted:Qt y: 2 on 08/21/[address] [facility] N/A: Spine Cervical [employer] 1868-60-014 / / Description:Depuy skyline 14 mm SD con SCR 34 Mm Plate Implanted:Qt y: 1 on 08/21/[address] [facility] N/A: Spine Cervical 034 / / Description:34 mm Depuy plat e 14 Mm Variable Rescue Implanted:Qt y: 2 on 08/21/[address] [facility] N/A: Spine Cervical 854-014 / / Description:14 mm variable r escue Screw 3.5x14 Mntr Fa [id number] - [id number] Implanted:Qt y: 10 on 07/13/[address] [facility] N/A: Spine Cervical JNJ : [employer] [id number] / / Devaughn 3.8w208fn [id number] - [id number] Implanted:Qt y: 1 on 07/13/[address] [facility] N/A: Spine Cervical JN[place] : [employer] [id number] / / Screw Inner Mntr [id number] - [id number] Implanted:Qt y: 8 on 07/13/[address] [facility] N/A: Spine Cervical JNJ : [employer] [id number] / / Nut Outer Xcon [id number] - [id number] Implanted:Qt y: 2 on 07/13/[address] [facility] N/A: Spine Cervical JNJ : [employer] [id number] / / Screw Inner Xcon [id number] - [id number] Implanted:Qt y: 2 on 07/13/[address] [facility] N/A: Spine Cervical JNJ : [employer] [id number] / / Plate 35mm Xcon [id number] - [id number] Implanted:Qt y: 1 on 07/13/[address] [facility] N/A: Spine Cervical JNJ : [employer] [id number] / / documented as of this encounter Visit Diagnoses Diagnosis Primary insomnia Persistent disorder of initiating or maintaining sleep Poor appetite Anorexia documented in this encounter Advance Directives * [...] the patient have Health Care Power of Hospital Administrative Assistant? No * Full Code Date Activated [...] Power of Attor kim? No Care Teams Core Piler Relationship Specialty Start Date End Date Natalia Erazo PA-C [address] [address] PCP - General Physician [employer] Professor 01/06/24 documented as of this encounter
--- OUTSIDE RECORDS SUMMARY | 2024-09-05 13:25 | External Medical Summary | Summary of Care ---
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 [facility] [address] [place] [address] FYI (Novolog for clam picker ) Allergies Active Allergy Reactions Criticality Noted Date Comments Alendronate Sodium 06/24/2012 Burning sensation and difficulty breathing Proton Pump Inhibitors Hives 02/20/2002 nexium documented as of this encounter (statuses as of 05/30/2024) Medications Medication Sig Dispensed Refills Start Date End Date Status Multiple Vitamin (DAILY VALUE MULTIVITAMIN) Tablet Take 1 Tablet by mouth in the morning. Active Fluticasone Propionate 50 MCG/ACT Nasal Suspension (Flonase)Indications :Chronic rhinitis Administer 2 Sprays into each nostril in the morning. 16 g 1 11/01/2022 Active Warfarin Sodium 5 MG Oral Tablet (Coumadin)Indication s:snf current use of anticoagulant therapy,Deep vein thrombosis (DVT) (HCC) TAKE ONE TABLET TO ONE AND ONE-HALF TABLET BY MOUTH EVERY DAY DIRECTED BY [facility]IC 135 Tablet 3 09/13/2023 5 Active Accu-Chek Guide In Vitro Strip (Glucose Blood)Indications:Ty pe 2 diabetes mellitus with foot ulcer, with long-term current use of insulin ([facility]),DM (diabetes mellitus) type II, controlled, with peripheral vascular disorder ([facility]) Use to test blood glucose 4 times daily. E11.9 400 Strip 3 10/04/2023 Active Accu-Chek Guide Me w/Device KitIndications:Type 2 diabetes mellitus with foot ulcer, with long-term current use of insulin ([facility]),DM (diabetes mellitus) type II, controlled, with peripheral vascular disorder ([facility]) Use as directed. 10/04/2023 Active Accu-Chek Softclix LancetsIndications:T ype 2 diabetes mellitus with foot ulcer, with long-term current use of insulin ([facility]),DM (diabetes mellitus) type II, controlled, with peripheral vascular disorder ([facility]) Use to test blood glucose [...] [place], goal below 130/80,Coronary artery disease involving quile[place] coronary artery of quileute heart without angina pectoris TAKE ONE TABLET [...] skin once a week. Sundays. Obtaining from [employer]. 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 On bottom shelf in storage fridge. Shanthi Franks, PharmD, BCACP Clinical Pharmacist Medication Therapy Disease Management 05/30/2024, 2:12 PM documented in this encounter Plan of Treatment Upcoming Encounters Date Type Department Care Team (Late st Contact Info) Description 06/03/2024 9:45 AM EDT Office Visit Podiatry [address] [place] [phone] Kenny Archibald, [place] [address] [place] [address] 06/10/2024 8:30 AM EST Imaging Radiology [facility] [address] [facility] [place] [address] [facility] [place] [address] 06/11/2024 10:50 AM EST Anticoagulation Pharmacy, [address] [address] [place], [facility] [address] [place] [address] 06/11/2024 11:00 AM EST Office Visit Pharmacy, [place] [address] [place] [address] [facility] [address] [place] [address] 06/19/2024 4:00 PM EST [facility] Visit [facility] [address] [facility] [place] [address] Rosalind Smith, RN [address] [place] [address] 07/17/2024 9:00 AM EST Office Visit Cardiology, [facility] [place] [address] Nesha Denney CRNP [address] [place] [address] 11/10/2024 11:00 AM EDT Office Visit Family Practice, [place] [address] [facility] [id number] Natalia Heller PA-C [address] [place] [address] Scheduled Procedures Name Priority Associated Diagnoses Date/Ti [...] D LEVEL ONCE IN A LIFETIME-USE SMARTSET# 14213 Completed 05/09/2024, 06/18/2020, 07/25/2019, Additional history exists [...] this encounter Medical Devices Implanted Type Area Mental Telepathist Device Identifier Shelf Expiration Date Model / Serial / Lot Graft Cervical 6x8 [id number] - [id number] Implanted:Qt y: 2 on 08/21/2008 at OR [facility] Tissue - Human Spine Cervical [employer] [id number] / / Screw Spine 14mm [id number] - [id number] Implanted:Qt y: 2 on 08/21/2008 at OR [facility] N/A: Spine Cervical CARSON [employer] CARSON DEPUY 50014 / / Depuy [place] 14 Mm Sd Con Scr Implanted:Qt y: 2 on 08/21/2008 at OR [facility] N/A: Spine Cervical [employer] DEPUY 60014 / / Description:Depuy skyline 14 mm SD con SCR 34 Mm Plate Implanted:Qt y: 1 on 08/21/2008 at OR [facility] N/A: Spine Cervical / / Description:34 mm Depuy plat e 14 Mm Variable Rescue Implanted:Qt y: 2 on 08/21/2008 at OR [facility] N/A: Spine Cervical / / Description:14 mm variable r escue Screw 3.5x14 Mntr Fa [id number] - [id number] Implanted:Qt y: 10 on 07/13/2010 at OR [facility] N/A: Spine Cervical JNJ : [employer]ON [employer] [id number] / / Devaughn 3.9u266sw [id number] - [id number] Implanted:Qt y: 1 on 07/13/2010 at OR [facility] N/A: Spine Cervical JNJ : [employer]ON [employer] [id number] / / Screw Inner Mntr [id number] - [id number] Implanted:Qt y: 8 on 07/13/2010 at OR [facility] N/A: Spine Cervical JNJ : [employer] [id number] / / Nut Outer Xcon [id number] - [id number] Implanted:Qt y: 2 on 07/13/2010 at OR [facility] N/A: Spine Cervical JNJ : [employer] [id number] / / Screw Inner Xcon [id number] - [id number] Implanted:Qt y: 2 on 07/13/2010 at OR [facility] N/A: Spine Cervical JNJ : [employer] [id number] / / Plate 35mm Xcon [id number] - [id number] Implanted:Qt y: 1 on 07/13/2010 at OR [facility] N/A: Spine Cervical JNJ : [employer] [id number] / / documented as of this encounter [...] the patient have Health Care Power of Vp Mobile Products? No * Full Code Date Activated Date [...] Power of Attor kim? No Care Teams Service Representative Relationship Specialty Start Date End Date Natalia Heller PA-C [address] [facility] [place] [address] PCP - General Physician Ceramic Mold Designer 01/06/24 documented as of this encounter
--- OUTSIDE RECORDS SUMMARY | 2024-09-05 13:26 | External Medical Summary | Summary of Care ---
Author Name Unknown Organization [facility] Address [address] [facility] [place] [address] Phone [phone] Care Team Providers Care Account Strategist Name Role Phone Natalia Heller PA-C Primary Care Provider +1 [phone] Reason for Visit * Reason Comments Outpatient Testing Encounter Details Date Type Department Care Team (Late st Contact Info) Description 05/09/2024 9:20 AM EDT Laboratory Laboratory, [place] [address] [place] [address] [place], Laboratory [address] [place] [address] Butlr Other*[id number]; Type 2 diabetes mellitus with foot ulcer, with long-term current use of insulin ([facility]); Dyslipidemia, goal LDL below 70; COPD, moderate ([facility]); Malaise and fatigue; Diabetic polyneuropathy associated with type 1 diabetes mellitus ([facility]); Primary insomnia Allergies Active Allergy Reactions [...] Warfarin Sodium 5 MG Oral Tablet (Coumadin)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 E11.9 400 Strip 3 10/04/2023 Active Accu-Chek Guide Me w/Device KitIndications:Type 2 diabetes mellitus with foot ulcer, with long-term current use of insulin ([facility]),DM (diabetes mellitus) type II, controlled, with peripheral vascular disorder ([facility]) Use as directed. 10/04/2023 Acti ve Accu-Chek Softclix LancetsIndications: Type 2 diabetes mellitus with foot ulcer, with long-term current use of insulin ([facility]),DM (diabetes mellitus) type II, controlled, with peripheral vascular disorder ([facility]) Use to test blood glucose [...] HTN, goal below 130/80,Coronary artery disease involving qawalangin coronary artery of qawalangin heart without angina pectoris TAKE ONE TABLET [...] skin once a week. Sundays. Obtaining from [employer]. 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 Cervical spinal stenosis 08/21/2008 [facility] current use of anticoagulant therapy 0 05/03/2005 [...] Description 05/16/2024 8:30 AM EDT Home Visit [facility] [address] [facility] [place] [address] Rosalind Smith, RN 132 [facility] [place] [address] 05/16/2024 11:00 AM EDT Nurse Only Ancillary Department, [place] [address] [place] [address] [place], Nurse [address] [place] [address] 05/23/2024 8:50 AM EDT Anticoagulation Pharmacy, [place] [address] [place] [address] [place], [facility] [address] [place] [address] 06/03/2024 9:45 AM EDT Office Visit Podiatry [facility], [address] [place] [address] Kenny Archibald, JASMINE [address] [place] [address] 06/10/2024 8:30 AM EST Imaging Radiology [address] [place] [address] 06/11/2024 11:00 AM EST [facility] [place] [address] [facility] [address] [facility] [address] [facility] [address] 07/17/2024 9:00 AM EST Office Visit Cardiology, [facility] [address] [facility] [place] [address] Nesha Denney CRNP [address] [place] [address] 11/10/2024 11:00 AM EDT Office Visit [facility], [place] [address] [facility] [address] Natalia Heller PA-C [address] [facility] [address] Pending Results Name Type Priority Associated Diagnoses Date /Time MYCODE SUBSEQUENT ADULT Lab Routine MyCode Research Other*[id number] 05/09/2024 9:11 AM EDT HEMOGLOBIN A1C Lab Routine Type 2 diabetes mellitus with foot ulcer, with long-term current use of insulin ([facility]) 05/09/2024 9:11 AM EDT COMPREHENSIVE METABOLIC PANEL Lab Routine Dyslipidemia, goal LDL below 70 Type 2 diabetes mellitus with foot ulcer, with long-term current use of insulin ([facility]) 05/09/2024 9:11 AM EDT [id number], QN Lab Routine COPD, moderate ([facility]) 05/09/2024 9:11 AM EDT VITAMIN B12 Lab Routine Malaise and fatigue Diabetic polyneuropathy associated with type 1 diabetes mellitus (HCC) Primary insomnia 05/09/2024 9:11 AM EDT TSH Lab Routine Malaise and fatigue Diabetic polyneuropathy associated with type 1 diabetes mellitus ([facility]) Primary insomnia 05/09/2024 9:11 AM EDT T4, FREE Lab Routine Malaise and fatigue Diabetic polyneuropathy associated with type 1 diabetes mellitus (HCC) Primary insomnia 05/09/2024 9:11 AM EDT 25-HYDROXY VITAMIN D Lab Routine Malaise and fatigue Diabetic polyneuropathy associated with type 1 diabetes mellitus (HCC) Primary insomnia 05/09/2024 9:11 AM EDT MYCODE SST1 Lab Routine MyCode Research Other*[id number] 05/09/2024 9:11 AM EDT MYCODE SST2 Lab Routine MyCode Research Other*[id number] 05/09/2024 9:11 AM EDT Scheduled Procedures Name Priority Associated [...] Visit 03/27/2023 03/27/2022, 01/19/20 21 Albumin/Creatinine Ratio 01/03/2024 05/2 023, 09/19/2022, 04/18/2021, Additional history exists COVID-19 [...] D LEVEL ONCE IN A LIFETIME-USE SMARTSET# [id number] Completed 06/18/2020, 07/25/2019, 05/20/2015, Additional history exists [...] this encounter Medical Devices Implanted Type Area Lime Sludge Mixer Device Identifier Shelf Expiration Date Model / Serial / Lot Graft Cervical 6x8 [id number] - [id number] Implanted:Qt y: 2 on 08/21/2008 [place] [facility] [place] - Human Spine Cervical [employer] [id number] / / Screw Spine 14mm 1868-50-014 - [id number] Implanted:Qt y: 2 on 08/21/2008 at [place] [facility] [place] N/A: Spine Cervical [employer] DEPUY 1868-50-014 / / Depuy [place] 14 Mm Sd Con Scr Implanted:Qt y: 2 on 08/21/2008 at [place] [facility] [place] N/A: Spine Cervical [employer] DEPUY 1868-60-014 / / Description:Depuy skyline 14 mm SD con SCR 34 Mm Plate Implanted:Qt y: 1 on 08/21/2008 at [place] [facility] [place] N/A: Spine Cervical / / Description:34 mm Depuy plat e 14 Mm Variable Rescue Implanted:Qt y: 2 on 08/21/2008 at [place] [facility] [place] N/A: Spine Cervical [id number] / / Description:14 mm variable r escue Screw 3.5x14 Mntr Fa [id number] - [id number] Implanted:Qt y: 10 on 07/13/2010 at [place] [facility] [place] N/A: Spine Cervical JNJ : [employer] [id number] / / Devaughn [id number] - [id number] Implanted:Qt y: 1 on 07/13/2010 at [place] [facility] [place] N/A: Spine Cervical JNJ : [employer]ON [employer]ATIONS [id number] / / Screw Inner Mntr [id number] - [id number] Implanted:Qt y: 8 on 07/13/2010 at [place] [facility] [place] N/A: Spine Cervical JNJ : [employer]ATIONS [id number] / / Nut Outer Xcon [id number] - [id number] Implanted:Qt y: 2 on 07/13/2010 at [place] [facility] [place] N/A: Spine Cervical JNJ : [employer] [id number] / / Screw Inner Xcon [id number] - [id number] Implanted:Qt y: 2 on 07/13/2010 at [place] [facility] [place] N/A: Spine Cervical JNJ : [employer] [id number] / / Plate 35mm Xcon [id number] - [id number] Implanted:Qt y: 1 on 07/13/2010 at [place] [facility] [place] N/A: Spine Cervical JNJ : [employer]ON [employer]ATIONS [id number] / / documented as of this encounter Visit Diagnoses Diagnosis MyCode Research Other*[id number] Type 2 diabetes mellitus with foot ulcer, [...] the patient have Health Care Power of Autocad Draftsman? No * Full Code Date Activated Date [...] Power of Attor kim? No Care Teams Account Strategist Relationship Specialty Start Date End Date Natalia Heller PA-C [address] [facility] [place] [address] PCP - General Physician R D Internship 01/06/24 documented as of this encounter
--- OUTSIDE RECORDS SUMMARY | 2024-09-05 13:26 | External Medical Summary ---
Author Name Unknown Address Unknown Organization K01[place] [place] [address] [place] [address] Laboratory Report Ordering Provider Test Date Status GARY WARD 05/09/2024 09:11:42 Final Observation Date Value Abnormality Reference (Units ) Status MYCODE SPECIMEN-SST 05/09/2024 09:11:42 Freezing of extracted DNA, whole blood and/or serum. Final Performing Location [facility] [place] [address] [place] [address]
--- OUTSIDE RECORDS SUMMARY | 2024-09-05 13:26 | External Medical Summary ---
Author Name Unknown Address Unknown Organization K01:[facility] [place] [address] [place] [address] Laboratory Report Ordering Provider Test Date Status KACEY VALENTINE 05/09/2024 09:11:42 Final Observation Date Value Abnormality Reference (Units ) Status TSH 05/09/2024 09:11:42 1.95 0.27-4.20 (uIU/mL) Final Performing Location LABORATORY [facility] - [address] [place] [address]
--- OUTSIDE RECORDS SUMMARY | 2024-09-05 13:26 | External Medical Summary | Summary of Care ---
Author Name Unknown Organization [facility] Address [address] [facility] [address] Phone [phone] Care Team Providers Care Utility Aircrewman Name Role Phone Natalia Heller PA-C Primary Care Provider +1 [phone] Reason for Visit * Reason Comments Dosage Adjustment In Person (Anticoag Cl inic) Encounter Details Date Type Department Care Team (Latest Contact Info) Description 05/09/2024 8:00 AM EDT Anticoagulation Pharmacy, [address] [address] [facility] [address] [place] [address] History of DVT (deep vein thrombosis)*; Chronic atrial fibrillation (HCC); Anticoagulation management encounter Allergies Active Allergy Reactions [...] Warfarin Sodium 5 MG Oral Tablet (Coumadin)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 E11.9 400 Strip 3 10/04/2023 Active Accu-Chek Guide Me w/Device KitIndications:Type 2 diabetes mellitus with foot ulcer, with long-term current use of insulin ([facility]),DM (diabetes mellitus) type II, controlled, with peripheral vascular disorder ([facility]) Use as directed. 10/04/2023 Acti ve Accu-Chek Softclix LancetsIndications: Type 2 diabetes mellitus with foot ulcer, with long-term current use of insulin ([facility]),DM (diabetes mellitus) type II, controlled, with peripheral vascular disorder ([facility]) Use to test blood glucose 4 times [...] Sunday only. 45 Capsule 3 12/12/2023 Active traZODone HCl 50 MG Oral Tablet (Desyrel)Indication s:Primary insomnia TAKE 1 TABLET BY MOUTH EVERY DAY AT BEDTIME 90 Tablet 3 01/03/2024 Active Metoprolol Succinate ER 50 MG Oral Tablet Extended Release 24 Hour (toPROL XL) TAKE ONE TABLET BY MOUTH TWICE A DAY 180 Tablet 3 01/07/2024 01/06/2025 Active Isosorbide Mononitrate ER 60 MG Oral Tablet Extended Release 24 Hour (Imdur)Indications: HTN, goal below 130/80,Coronary artery disease involving platinum coronary artery of platinum heart without angina pectoris TAKE ONE TABLET [...] skin once a week. Sundays. Obtaining from [employer]. 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 I was present and in the exam room for the entirety of the visit. I spent a total of 10-19 minutes (exact time 10 mins) on the date of service in preparation, delivery, and documentation of the care provided to Graciela Mobley excluding any time spent in the performance of separately billed services. Shanthi Franks [facility] Clinical Pharmacist 05/09/2024, 8:16 AM * Carol Canseco, PHARM Student - 05/09/2024 7:58 AM EDT Medication Therapy Disease Management - Anticoagulation Patient: Graciela Mobley | : 1950 Subjective Patient-Reported Symptoms: Patient Findings Positives: Change in diet/appetite (Reports eating more salads) Negatives: Signs/symptoms of thrombosis, Signs/symptoms of bleeding, Change in health, Change in alcohol use, Change in activity, Upcoming invasive procedure, Missed doses, Extra doses, Change in medications, Bruising Objective Current Warfarin Dose As of 05/09/2024 Warfarin maintenance plan: 10 mg (5 mg x 2) every Sun, Karen; 5 mg (5 mg x 1) all other days INR Result As of 05/09/2024 INR goal: 2.0-3.0 INR used for dosin.3 (05/09/2024) Assessment & Plan Warfarin Plan As of 05/09/2024 Full warfarin instructions: 05/09: 10 mg; 05/10: 10 mg; Otherwise 10 mg every Sun, Karen; 5 mg all other days Next INR check: 05/23/2024 Repeat PT/INR in 2 week(s) Weekly dose: not changed Additional Dosing Information: Description Carol Canseco, PHARM Student Clinical Pharmacist 05/09/2024, 7:59 AM documented in this encounter Plan of Treatment Upcoming Encounters Date Type Department Care Team (Late st Contact Info) Description 05/16/2024 8:30 AM EDT Home Visit [facility]inger at [facility] [address] [facility] [place] [address] Rosalind Smith, RN [address] [facility] [place] [address] 05/23/2024 8:50 AM EDT Anticoagulation Pharmacy, [place] [address] [facility] [address] [facility] [address] [place] [address] 06/03/2024 9:45 AM EDT Office Visit Podiatry [address] [place] [address] Kenny Archibald, [facility] [address] [place] [address] 06/10/2024 8:30 AM EST Imaging [facility] [address] [facility] [place] [address] 06/11/2024 11:00 AM EST Office Visit Pharmacy, [place] [address] [place] [address] [place], [facility] [address] [place] [address] 07/17/2024 9:00 AM EST Office Visit Cardiology, [facility] [address] [place] [address] Nesha Denney, [place] [address] [place] [address] Scheduled Procedures Name Priority Associated Diagnoses Date/Ti [...] 03/27/2023 03/27/2022, 01/19/20 21 Albumin/Creatinine Ratio 01/03/2024 023, 09/19/2022, 04/18/2021, Additional history exists COVID-19 [...] D LEVEL ONCE IN A LIFETIME-USE SMARTSET# [id number] Completed 06/18/2020, 07/25/2019, 05/20/2015, Additional history exists [...] this encounter Medical Devices Implanted Type Area Marble Mechanic Helper Device Identifier Shelf Expiration Date Model / Serial / Lot Graft Cervical 6x8 [id number] - [id number] Implanted:Qt y: 2 on 08/21/2008 at [place] [facility] [place] Tissue - Human Spine Cervical [employer] [id number] / / Screw Spine 14mm 50-014 - [id number] Implanted:Qt y: 2 on 08/21/2008 at [place] [facility] [place] N/A: Spine Cervical CARSON [employer] CARSON DEPUY 50-014 / / Depuy [place] 14 Mm Sd Con Scr Implanted:Qt y: 2 on 08/21/2008 at [place] [facility] [place] N/A: Spine Cervical [employer] CAR[employer] DEPUY 60-014 / / Description:Depuy skyline 14 mm SD con SCR 34 Mm Plate Implanted:Qt y: 1 on 08/21/2008 at [place] [facility] [place] N/A: Spine Cervical / / Description:34 mm Depuy plat e 14 Mm Variable Rescue Implanted:Qt y: 2 on 08/21/2008 at [place] [facility] [place] N/A: Spine Cervical [id number] / / Description:14 mm variable r escue Screw 3.5x14 Mntr Fa [id number] - [id number] Implanted:Qt y: 10 on 07/13/2010 at [place] [facility] [place] N/A: Spine Cervical JNJ : ETHICON C[employer]IOVATIONS [id number] / / Devaughn [id number] - [id number] Implanted:Qt y: 1 on 07/13/2010 at [place] [facility] [place] N/A: Spine Cervical JNJ : [employer] C[employer]ATIONS [id number] / / Screw Inner Mntr [id number] - [id number] Implanted:Qt y: 8 on 07/13/2010 at [place] [facility] [place] N/A: Spine Cervical JNJ : ETH[employer]ON CARDI[employer]ATIONS [id number] / / Nut Outer Xcon [id number] - [id number] Implanted:Qt y: 2 on 07/13/2010 at [place] [facility] [place] N/A: Spine Cervical JNJ : [employer] [id number] / / Screw Inner Xcon [id number] - [id number] Implanted:Qt y: 2 on 07/13/2010 at [place] [facility] [place] N/A: Spine Cervical JNJ : [employer] C[employer]ATIONS [id number] / / Plate 35mm Xcon [id number] - [id number] Implanted:Qt y: 1 on 07/13/2010 at [place] [facility] [place] N/A: Spine Cervical JNJ : ETH[employer]ON CARDI[employer]ATIONS [id number] / / documented as of this encounter Procedures Procedure Name Priority Date/Time Associated Diagnosis Comments INR FINGERSTICK, POINT OF CARE STAT 05/09/2024 8:02 AM EDT History of DVT (deep vein thrombosis) Chronic atrial fibrillation (HCC) Anticoagulation management encounter documented in this encounter Results * INR FINGERSTICK, POINT OF CARE (05/09/2024 8:02 AM EDT) Fingerstick INR 1.3 INR 8:09 AM EDT LABORATORY [place] [facility] Blood 05/09/2024 8:02 AM EDT 05/09/2024 8:09 AM EDT Narrative LABORATORY [facility] - 05/09/2024 8:09 AM EDT Therapeutic ranges for non-operative patients: Prophylaxsis/treatment of DVT: (Range:2.0-3.0) Treatment of pulmonary embolism:(Range:2.0-3.0) Prevention of systemic embolism from: -tissue heart valves -acute myocardial infarction -valvular heart disease -atrial fibrillation (Range: 2.0-3.0) Mechanical prosthetic valves: (Range: 2.5-3.5) Shanthi Franks [facility] LAB POINT OF CARE TEST DOCKED DEVICE UNSOLICITED RESULTS Performing Organization Address City/State/[facility] Co de Phone Number [facility]ATORY [place] [phone] [place] [address] documented in this encounter Visit Diagnoses Diagnosis History of DVT (deep vein thrombosis)- Primary Personal history of venous thrombosis and embolism Chronic atrial fibrillation (HCC) Atrial fibrillation Anticoagulation management encounter Encounter for therapeutic drug monitoring documented in this encounter Advance Directives * [...] the patient have Health Care Power of On Line Csr? No * Full Code Date Activated Date [...] Power of Attor kim? No Care Teams Utility Aircrewman Relationship Specialty Start Date End Date Natalia Heller PA-C [address] [place] [facility] [place] [address] PCP - General Physician Non Licensed Operator 01/06/24 documented as of this encounter
--- OUTSIDE RECORDS SUMMARY | 2024-09-05 13:26 | External Medical Summary ---
Author Name Unknown Address Unknown Organization K01[place] [place] [facility] [address] [place] [address] Laboratory Report Ordering Provider Test Date Status KACEY VALENTINE 05/09/2024 09:40:21 Final Normal: <30 mg/g creatinine< br/>High: 30-300 mg/g creatinine
Very High: >300 mg/g creatinine
Nephrotic: >2200 mg/g creatinine Observation Date Value Abnormality Reference (Units ) Status Albumin, Urine 05/09/2024 09:40:21 13.00 (mg/dL) Final Creatinine, Urine 05/09/2024 09:40:21 147 (mg/dL) Final Albumin/Creatinine [Mass Ratio] in Urine 05/09/2024 09:40:21 88 Above high normal <30 (mg/g Creat) Final Performing Location [facility] [place] [address] [place] [address]
--- OUTSIDE RECORDS SUMMARY | 2024-09-05 13:26 | External Medical Summary | Summary of Care ---
Author Name Unknown Organization [facility] Address [address] [place] [address] Phone [phone] Care Team Providers Care Nuclear Control Room Operator Name Role Phone Natalia Heller PA-C Primary Care Provider [phone] Reason for Visit * Reason Comments Follow Up Pt states that she i s here for a follow up Encounter Details Date Type Department Care Team (Latest Contact Info) Description 05/09/2024 8:20 AM EDT Office Visit [facility] [address] [place] [address] Natalia Heller PA-C [address] [place] [address] Malaise and fatigue*; Diabetic polyneuropathy associated with type 1 diabetes mellitus (HCC); Primary insomnia; Poor appetite Allergies Active Allergy [...] Warfarin Sodium 5 MG Oral Tablet (Coumadin)Indicati ons:MCFP current use of anticoagulant therapy,Deep vein thrombosis (DVT) ([facility]) TAKE ONE TABLET TO ONE AND ONE-HALF TABLET BY MOUTH EVERY DAY DIRECTED BY [facility] 135 Tablet 3 09/13/2023 5 Active Accu-Chek Guide In Vitro Strip (Glucose Blood)Indications: Type 2 diabetes mellitus with foot ulcer, with long-term current use of insulin ([facility]),DM (diabetes mellitus) type II, controlled, with peripheral vascular disorder ([facility]) Use to test blood glucose 4 times daily. E11.9 400 Strip 3 10/04/2023 Active Accu-Chek Guide Me w/Device KitIndications:Typ e 2 diabetes mellitus with foot ulcer, with long-term current use of insulin ([facility]),DM (diabetes mellitus) type II, controlled, with peripheral vascular disorder ([facility]) Use as directed. 10/04/2023 Active Accu-Chek Softclix LancetsIndications :Type 2 diabetes mellitus with foot ulcer, with long-term current use of insulin ([facility]),DM (diabetes mellitus) type II, controlled, with peripheral vascular disorder ([facility]) Use to test blood glucose 4 [...] :HTN, goal below 130/80,Coronary artery disease involving [place] coronary artery of [place] heart without angina pectoris TAKE ONE TABLET [...] skin once a week. Sundays. Obtaining from [employer]. Active Nitroglycerin 0.3 MG Sublingual Tablet Sublingual (Nitrostat)Indicat ions:Coronary artery disease of [place] artery of [place] heart with stable angina pectoris (HCC) PLACE [...] 05/06/2024 Active Mirtazapine 30 MG Oral Tablet (Remeron)Indicatio ns:Primary insomnia,Poor appetite Take 1 Tablet by mouth at bedtime. 30 Tablet 05/09/2024 Active traZODone HCl 50 MG Oral Tablet (Desyrel)Indicatio ns:Primary insomnia TAKE 1 TABLET BY MOUTH EVERY DAY AT BEDTIME 90 Tablet 3 01/03/2024 4 Discontinue d(Patient preference/ discontinua tion) documented as of this encounter (statuses as [...] artery disease of n ative artery of [place] heart with stable angina pectoris 12/08/2020 Last [...] Per Lipid Taxonomy. 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 0 05/03/2005 [...] Reading Time Taken Comments Blood Pressure 118/62 05/09/2024 8:17 AM EDT Pulse 101 05/09/2024 8:17 AM EDT Temperature 35.7 C (96.2 F) 05/09/2024 8:17 AM ED T Respiratory Rate 16 05/09/2024 8:17 AM EDT Oxygen Saturation 99% 05/09/2024 8:17 AM EDT Inhaled Oxygen Concentration - - Weight 92.9 kg (204 lb 12.8 oz) 05/09/2024 8:17 AM EDT Height 165.1 cm (5' 5") 05/09/2024 8:17 AM EDT Body Mass Index 34.08 05/09/2024 8:17 AM EDT documented in this encounter Functional [...] of this encounter Progress Notes * Natalia Heller PA-C - 05/09/2024 8:29 AM EDT Images from the original note were not included. History of Present Illness Graciela Mobley is a 74 year old female that presents for Follow Up (Pt states that she is here for a follow up) Here for reg return She is tried all the time Has no energy Appetite is gone - she blames that on the ozempic. No low bg - on pump and has ozempic. Working with mtm. Results for orders placed or performed in visit on 05/09/24 INR FINGERSTICK, POINT OF CARE Result Value Ref Range Fingerstick INR 1.3 INR *Note: Due to a large number of results and/or encounters for the requested time period, some results have not been displayed. A complete set of results can be found in Results Review. Hemoglobin AIC Results: Lab Results Component Value Date/Time HEMOGLOBIN A1C 7.7 (H) 07/09/1996 11:15 AM HEMOGLOBIN A1C - [facility] 10.2 (H) 11/13/2023 04:31 AM HEMOGLOBIN A1C - [facility] 10.2 (H) 08/30/2023 10:08 AM HEMOGLOBIN A1C - [facility] 9.6 (H) 07/05/2023 01:32 PM HEMOGLOBIN A1C - [facility] 10.6 (H) 06/18/2020 09:03 AM HEMOGLOBIN A1C - [facility] 13.2 (H) 07/25/2019 09:28 AM HEMOGLOBIN A1C - [facility] 13.3 (H) 02/18/2019 02:17 PM Up most of the night. She just cannot sleep. She is not sleeping at night but she is sleeping most of the day. Trazodone is not helping. Past Medical History: Diagnosis Date Asthma with [...] LDL below 100 07/15/2009 Per Lipid Taxonomy. MCFP (current) use of anticoagulants Major depressive disorder, single episode, unspecified 12/08/2020 More specified/recent code listed on PL Myalgia and myositis Osteoarthrosis, unspecified whether generalized or localized, lower leg Other B-complex deficiencies Phlebitis and thrombophlebitis of other deep vessels of lower extremities Right leg x 2 Mirtazapine 30 MG Oral Tablet (Remeron) Sertraline HCl 50 MG Oral Tablet (Zoloft) Albuterol Sulfate HFA 108 (90 Base) MCG/ACT Inhalation Aerosol Solution Nitroglycerin 0.3 MG Sublingual Tablet Sublingual (Nitrostat) Ozempic (2 MG/DOSE) 8 MG/3ML Subcutaneous Solution Pen-injector (Semaglutide (2 MG/DOSE)) Vitamin B12 500 MCG Oral Tablet metFORMIN HCl 1000 MG Oral Tablet (Glucophage) Isosorbide Mononitrate ER 60 MG Oral Tablet Extended Release 24 Hour (Imdur) Metoprolol Succinate ER 50 MG Oral Tablet Extended Release 24 Hour (toPROL XL) Aspirin 81 MG Oral Tablet Delayed Release Furosemide 20 MG Oral Tablet (Lasix) Potassium Chloride ER 10 MEQ Oral Capsule Extended Release Insulin Aspart 100 UNIT/ML Injection Solution (NovoLOG) Rosuvastatin Calcium 20 MG Oral Tablet (Crestor) Accu-Chek Guide In Vitro Strip (Glucose Blood) Accu-Chek Guide Me w/Device Kit Accu-Chek Softclix Lancets Warfarin Sodium 5 MG Oral Tablet (Coumadin) Fluticasone Propionate 50 MCG/ACT Nasal Suspension (Flonase) Multiple Vitamin (DAILY VALUE MULTIVITAMIN) Tablet Physical Exam Vitals: 05/09/24 0817 Temp: 35.7 C (96.2 F) Pulse: 101 Resp: 16 SpO2: 99% BP: 118/62 BMI: 34.08 BP Readings from Last 3 Encounters: 05/09/24 118/62 04/11/24 110/64 03/14/24 118/64 Wt Readings from Last 3 Encounters: 05/09/24 92.9 kg (204 lb 12.8 oz) 01/03/24 86.6 kg (191 lb) 12/11/23 87.4 kg (192 lb 12 oz) BMI Readings from Last 3 Encounters: 05/09/24 34.08 kg/m 01/03/24 31.78 kg/m 12/11/23 32.08 kg/m Ht Readings from Last 3 Encounters: 05/09/24 1.651 m (5' 5") 01/03/24 1.651 m (5' 5") 11/23/23 1.651 m (5' 5") General: alert, healthy, and no distress Head: Normocephalic, No masses, lesions, tenderness or abnormalities Eye Exam: PERRLA, extraocular movements intact, conjunctiva are pink and non- injected, sclera clear Heart: regular rate & rhythm, no murmur, no gallops, S-1 normal, and S-2 normal Lungs: chest symmetric with normal AP diameter, no chest deformities noted, no chest wall tenderness, lungs clear to auscultation Extremities: less than 2 second capillary refill, no joint deformities, effusion, or inflammation Skin: skin color, texture, turgor are normal, no rashes or significant lesions Assessment and Plan Malaise and fatigue (Primary) - VITAMIN B12; Future; Expected date: 05/09/2024 - TSH; Future; Expected date: 05/09/2024 - T4, FREE; Future; Expected date: 05/09/2024 - 25-HYDROXY VITAMIN D; Future; Expected date: 05/09/2024 Diabetic polyneuropathy associated with type 1 diabetes mellitus (HCC) - VITAMIN B12; Future; Expected date: 05/09/2024 - TSH; Future; Expected date: 05/09/2024 - T4, FREE; Future; Expected date: 05/09/2024 - 25-HYDROXY VITAMIN D; Future; Expected date: 05/09/2024 - HEMOGLOBIN A1C, POINT OF CARE Primary insomnia - VITAMIN B12; Future; Expected date: 05/09/2024 - TSH; Future; Expected date: 05/09/2024 - T4, FREE; Future; Expected date: 05/09/2024 - 25-HYDROXY VITAMIN D; Future; Expected date: 05/09/2024 - Mirtazapine 30 MG Oral Tablet (Remeron); Take 1 Tablet by mouth at bedtime. Poor appetite - Mirtazapine 30 MG Oral Tablet (Remeron); Take 1 Tablet by mouth at bedtime. Discussion with patient of risk and benefit of medication. also discussion of common side affects. patient counseled and is aware and wishes to purse this medication, agrees to call with any issues or concerns. Titrate dose Wrap-Up Follow Up: Return in about 6 months (around 11/07/2024) for reg return, nurse call in 7-10 days. | For: reg return, nurse call in 7-10 days | Check-out note: How is new sleep med? Dose ok? Rev last labs Need current ones We rev options - coordinate with mtm about her a1c Time: I spent a total of 30-39 minutes (exact time 35 mins) on the date of service in preparation, delivery, and documentation of the care provided to Graciela Mobley excluding any time spent in the performance of separately billed services. Natalia Heller PA-C 05/09/2024 8:55 AM documented in this encounter Nursing Notes * Sofie Blanchard LPN - 05/09/2024 8:17 AM EDT Graciela Mobley is a 74 year old female who presents today for Chief Complaint Patient presents with Follow Up Pt states that she is here for a follow up documented in this encounter Plan of Treatment Upcoming Encounters Date Type Department Care Team (Latest Contact Info) Description 05/09/2024 9:20 AM EDT Laboratory Laboratory, [address] [id number] [facility] [address] [place] [address] [employer] Other*[id number]; Type 2 diabetes mellitus with foot ulcer, with long-term current use of insulin (HCC); Dyslipidemia, goal LDL below 70; COPD, moderate (HCC); Malaise and fatigue; Diabetic polyneuropathy associated with type 1 diabetes mellitus (HCC); Primary insomnia 05/16/2024 8:30 AM EDT Home Visit [facility] [address] [place] [address] Rosalind Smith RN [address] [facility] [place] [address] 05/16/2024 11:00 AM EDT Nurse Only Ancillary Department, [place] [address] [facility] [place] [address] [place], Nurse [address] [place] [address] 05/23/2024 8:50 AM EDT [facility], [place] [address] [facility] [address] [facility] [address] [place] [address] 06/03/2024 9:45 AM EDT Office Visit Podiatry [address] [place] [address] Kenny Archibald, [facility] [address] [place] [address] 06/10/2024 8:30 AM EST Imaging Radiology [facility] [address] [facility] [address] [facility] [place] [address] 06/11/2024 11:00 AM EST [facility], [place] [address] [facility] [address] [facility] [address] [facility] [address] 07/17/2024 9:00 AM EST Office Visit Cardiology, [facility] [address] [facility] [place] [address] Nesha Denney CRNP [address] [facility] [place] [address] 11/10/2024 11:00 AM EDT Office Visit [facility], [place] [address] [facility] [address] Natalia Heller PA-C [address] [facility] [address] Pending Results Name Type Priority Associated Diagnoses Date /Time VITAMIN B12 Lab Routine Malaise and fatigue [...] (HCC) Primary insomnia 05/09/2024 9:11 AM EDT Scheduled Orders Name Type Priority Associated Diagnoses Orde r Schedule VITAMIN B12 Lab Routine Malaise and fatigue Diabetic polyneuropathy associated with type 1 diabetes mellitus (HCC) Primary insomnia Expected: 05/09/2024 (Approximate), Expires: 05/09/2025 TSH Lab Routine Malaise and fatigue Diabetic polyneuropathy associated with type 1 diabetes mellitus (HCC) Primary insomnia Expected: 05/09/2024 (Approximate), Expires: 05/09/2025 T4, FREE Lab Routine Malaise and fatigue Diabetic polyneuropathy associated with type 1 diabetes mellitus (HCC) Primary insomnia Expected: 05/09/2024 (Approximate), Expires: 05/09/2025 25-HYDROXY VITAMIN D Lab Routine Malaise and fatigue Diabetic polyneuropathy associated with type 1 diabetes mellitus (HCC) Primary insomnia Expected: 05/09/2024 (Approximate), Expires: 05/09/2025 HEMOGLOBIN A1C, POINT OF CARE Point of Care Testing - Unsolicited Results Routine Diabetic polyneuropathy associated with type 1 diabetes mellitus (HCC) Ordered: 05/09/2024 Scheduled Procedures Name Priority Associated Diagnoses Date/Ti [...] D LEVEL ONCE IN A LIFETIME-USE SMARTSET# [id number] Completed 06/18/2020, 07/25/2019, 05/20/2015, Additional history exists [...] this encounter Medical Devices Implanted Type Area Scrub Nurse Device Identifier Shelf Expiration Date Model / Serial / Lot Graft Cervical 6x8 [id number] - [id number] [place]ed:Qt y: 2 [place] 08[place]21[place] [facility] [place] - Human Spine Cervical [employer] [id number] / / Screw Spine 14mm 014 - [id number] Implanted:Qt y: 2 on 08/21/2008 [place] [facility] [place]/A: Spine Cervical [employer] DEPUY [id number] / / Depuy Leming 14 Mm Sd Con Scr Implanted:Qt y: 2 on 08/21/2008 [place] [facility] [place]A: Spine Cervical [employer] 60 / / Description:Depuy skyline 14 mm SD con SCR 34 Mm Plate Implanted:Qt y: 1 on 08/21/2008 [place] [facility] [place]/A: Spine Cervical / / Description:34 mm Depuy plat e 14 Mm Variable Rescue Implanted:Qt y: 2 on 08/21/2008 [place] [facility] [place]A: Spine Cervical / / Description:14 mm variable r escue Screw 3.5x14 Mntr Fa [id number] - [id number] Implanted:Qt y: 10 on 07/13/2010 [place] [facility] [place]A: Spine Cervical JNJ : [employer] [id number] / / Devaughn [id number] - [id number] Implanted:Qt y: 1 on 07/13/2010 [place] [facility] [place]A: Spine Cervical JNJ : [employer] [id number] / / Screw Inner Mntr [id number] - [id number] Implanted:Qt y: 8 on 07/13/2010 [place] [facility] [place]: Spine Cervical JNJ : [employer] [id number] / / Nut Outer Xcon [id number] - [id number] Implanted:Qt y: 2 on 07/13/2010 [place] [facility] [place]A: Spine Cervical JNJ : [employer] [id number] / / Screw Inner Xcon [id number] - [id number] Implanted:Qt y: 2 on 07/13/2010 [place] [facility] [place]A: Spine Cervical JNJ : [employer] [id number] / / Plate 35mm Xcon [id number] - [id number] Implanted:Qt y: 1 on 07/13/2010 [place] [facility] [place]A: Spine Cervical JNJ : [employer] [id number] / / documented as of this encounter Visit Diagnoses Diagnosis Malaise and fatigue- Primary Other malaise and fatigue Diabetic polyneuropathy associated with type 1 diabetes mellitus (HCC) Primary insomnia Persistent disorder of initiating or maintaining sleep Poor appetite Anorexia [employer] Other*[id number] Type 2 diabetes mellitus with foot ulcer, [...] the patient have Health Care Power of Rivet Hammer Machine Operator? No * Full Code Date Activated [...] Power of Attor kim? No Care Teams Nuclear Control Room Operator Relationship Specialty Start Date End Date Natalia Heller PA-C [address] [facility] [place] [address] PCP - General Physician Medical Sales 01/06/24 documented as of this encounter
--- OUTSIDE RECORDS SUMMARY | 2024-09-05 13:26 | External Medical Summary ---
Author Name Unknown Address Unknown Organization K01:[facility] - [address] [place] [address] Laboratory Report Ordering Provider Test Date Status SERGEDAVIONARELI 05/09/2024 09:11:42 Final Observation Date Value Abnormality Reference (Units ) Status T4, Free 05/09/2024 09:11:42 1.3 0.9-1.7 (n g/dL) Final Performing Location [facility] - [address] [place] [address]
--- OUTSIDE RECORDS SUMMARY | 2024-09-05 13:27 | External Medical Summary ---
Author Name Unknown Address Unknown Organization K01[facility] [address] [place] [address] Laboratory Report Ordering Provider Test Date Status KACEY VALENTINE 05/09/2024 09:11:42 Final Observation Date Value Abnormality Reference (Units ) Status BUN 05/09/2024 09:11:42 18 6-20 (mg/dL) Final Creatinine 05/09/2024 09:11:42 0.8 0.5-1.0 (mg/dL) Final Glomerular filtration rate/1.73 sq M.predicted [Volume Rate/Area] in Serum, Plasma or Blood by Creatinine-based formula (CKD-EPI) 05/09/2024 09:11:42 75 >=60 (mL/min) Final eGFR is calculated based on the CKD-EPI 2020 equation. Sodium 05/09/2024 09:11:42 140 135-146 (m mol/L) Final Potassium 05/09/2024 09:11:42 5.2 Above high normal 3. 5-5.1 (mmol/L) Final Cl 05/09/2024 09:11:42 104 98-107 (mm ol/L) Final CO2 05/09/2024 09:11:42 26 22-32 (mmo l/L) Final Anion gap 05/09/2024 09:11:42 10 7-15 (mmol /L) Final Glucose 05/09/2024 09:11:42 192 Above high normal 70 -120 (mg/dL) Final Albumin 05/09/2024 09:11:42 4.0 3.8-5.0 (g /dL) Final AST (Aspartate aminotransferase) 05/09/2024 09:11:42 35 10-35 (U/L) Fin al Alk Phos 05/09/2024 09:11:42 100 35-130 (U/ L) Final Bilirubin, Total 05/09/2024 09:11:42 0.4 <=1 .2 (mg/dL) Final Calcium 05/09/2024 09:11:42 10.0 8.4-10.2 ( mg/dL) Final Protein 05/09/2024 09:11:42 7.2 6.0-8.3 (g /dL) Final ALT (Alanine aminotransferase) 05/09/2024 09:11:42 24 10-35 (U/L) Josh hudson Performing Location [facility] - [address] [facility] [address]
--- OUTSIDE RECORDS SUMMARY | 2024-09-05 13:27 | External Medical Summary | Summary of Care ---
Author Name Unknown Organization [facility] Address [address] [address] Phone [phone] Care Team Providers Care Stream Control Officer Name Role Phone Natalia Heller PA-C Primary Care Provider [phone] Encounter Details Date Type Department Care Team (Late st Contact Info) Description 04/24/2024 Population Health External Data Unspecified Department Allergies Active Allergy Reactions Criticality Noted Date Comments Alendronate Sodium 06/24/2012 Burning sensation and difficulty breathing Proton Pump Inhibitors Hives 02/20/2002 nexium documented as of this encounter (statuses as of 04/28/2024) Medications Medication Sig Dispensed Refills Start Date End Date Status Multiple Vitamin (DAILY VALUE MULTIVITAMIN) Tablet Take 1 Tablet by mouth in the morning. Active Fluticasone Propionate 50 MCG/ACT Nasal Suspension (Flonase)Indication s:Chronic rhinitis Administer 2 Sprays into each nostril in the morning. 16 g 1 11/01/2022 Active Sertraline HCl 50 MG Oral Tablet (Zoloft) Take 1.5 Tablets by mouth at bedtime. 135 Tablet 3 04/04/2023 Active Warfarin Sodium 5 MG Oral Tablet (Coumadin)Indicatio ns:FCI current use of anticoagulant therapy,Deep vein thrombosis (DVT) (HCC) TAKE ONE TABLET TO ONE AND ONE-HALF TABLET BY MOUTH EVERY DAY DIRECTED BY [facility] 135 Tablet 3 09/13/2023 09/12/2024 Active Accu-Chek Guide In Vitro Strip (Glucose Blood)Indications:T ype 2 diabetes mellitus with foot ulcer, with long-term current use of insulin ([facility]),DM (diabetes mellitus) type II, controlled, with peripheral vascular disorder ([facility]) Use to test blood glucose 4 times daily. E11.9 400 Strip 3 10/04/2023 Active Accu-Chek Guide Me w/Device KitIndications:Type 2 diabetes mellitus with foot ulcer, with long-term current use of insulin ([facility]),DM (diabetes mellitus) type II, controlled, with peripheral vascular disorder ([facility]) Use as directed. 10/04/2023 Acti ve Accu-Chek Softclix LancetsIndications: Type 2 diabetes mellitus with foot ulcer, with long-term current use of insulin ([facility]),DM (diabetes mellitus) type II, controlled, with peripheral vascular disorder ([facility]) Use to test blood glucose 4 times daily. DX: E11.9 400 Each 3 10/04/2023 Active Rosuvastatin Calcium 20 MG Oral Tablet (Crestor)Indication s:Dyslipidemia, goal LDL below 70 Take 1 Tablet by mouth in the morning. 90 Tablet 3 10/25/2023 Active Insulin Aspart 100 UNIT/ML Injection Solution (NovoLOG) Inject under the skin. 310 units in pump. Getting from [employer] PAP Active Aspirin 81 MG Oral Tablet [...] HTN, goal below 130/80,Coronary artery disease involving chickahominy indian tribe coronary artery of chick[place]ominy indian tribe heart without angina pectoris TAKE ONE TABLET [...] skin once a week. Sundays. Obtaining from [employer]. Active Nitroglycerin 0.3 MG Sublingual Tablet Sublingual (Nitrostat)Indicati ons:Coronary artery disease of chickahominy indian tribe artery of chickahominy indian tribe heart with stable angina pectoris (HCC) PLACE 1 TABLET UNDER THE TONGUE EVERY 5 MINUTES UP TO 3 DOSES NEEDED FOR CHEST PAIN. IF NO RELIEF CALL 911 OR GO TO ER 25 Tablet 11 02/05/2024 02/04/2025 Active Albuterol Sulfate HFA 108 (90 Base) MCG/ACT Inhalation Aerosol SolutionIndications :Bronchitis, complicated Inhale 2 Puffs by mouth 4 times daily 54 g 3 02/06/2024 Active documented as of this encounter (statuses as of 04/28/2024) Active Problems Problem Noted Date Diagnosed Date [...] tribe heart with stable angina pectoris 12/08/2020 Last [...] as of this encounter (statuses as of 04/28/2024) Resolved Problems Problem Noted Date Diagnosed Date [...] as of this encounter (statuses as of 04/28/2024) Immunizations Name Administration Dates Next Due COVID-19 [...] Preserve, IM 05/20/2015 Seasonal Influenza, Trivalen t, (IIV3), with Preserv, (Fluzone) 06/09/2016,05/22/2014,05/05/2013,04/30,05/22/2011,06/07/2010,07/07/2008 ,05/20/2007,06/07/2006 Seasonal Influenza, Trivalen t, Adjuvanted, 65+ YRS, [...] Team (Late st Contact Info) Description 05/09/2024 8:00 AM EDT Antico[facility] Pharmacy, [place] [address] [address] [place] [facility] [address] [address] 05/09/2024 8:20 AM EDT Office Visit Family Practice, [place] [address] [address] Natalia Heller PA-C [address] [facility] [place] [address] 05/16/2024 8:30 AM EDT [facility] [address] [address] Rosalind Smith RN [address] [place] [address] 06/03/2024 9:45 AM EDT Office Visit Podiatry [address] [place] [phone] Kenny Archibald, [place] [id number] [place] [address] 06/10/2024 8:30 AM EST Imaging Radiology [facility] [address] [address] 06/11/2024 11:00 AM EST Office Visit Pharmacy, [place] [address] [address] [place] [facility] [address] [address] 07/17/2024 9:00 AM EST Office Visit Cardiology, [facility] [address] [place] [address] Nesha Denney CRNP [address] [place] [address] Scheduled Procedures Name Priority Associated Diagnoses Date/Ti [...] D LEVEL ONCE IN A LIFETIME-USE SMARTSET# 58556 Completed 06/18/2020, 07/25/2019, 05/20/2015, Additional history exists [...] this encounter Medical Devices Implanted Type Area Bed Worker Device Identifier Shelf Expiration Date Model / Serial / Lot Graft Cervical 6x8 [id number] - [id number] Implanted:Qt y: 2 on 08/21/2008 [place] [facility] [place] - Human Spine Cervical [employer] Co [id number] / / Screw Spine 14mm 50-014 - [id number] Implanted:Qt y: 2 on 08/21/2008 at [place] [facility] [place] N/A: Spine Cervical [employer]SON [employer] CARSON DEPUY [id number] / / Depuy [place] 14 Mm Sd Con Scr Implanted:Qt y: [facility] [place]: Spine Cervical [id number] / / Description:14 mm variable r escue Screw 3.5x14 Mntr Fa [id number] - [id number] Implanted:Qt y: 10 on 07/13/2010 at [place] [facility] [place]/A: Spine Cervical JNJ : ETH[employer] [id number] / / Devaughn [id number] - [id number] Implanted:Qt y: 1 on 07/13/2010 at [place] [facility] [place]/A: Spine Cervical JNJ : ETH[employer]ON C[employer]OVATIONS [id number] / / Screw Inner Mntr [id number] - [id number] Implanted:Qt y: 8 on 07/13/2010 at [place] [facility] [place]/A: Spine Cervical JNJ : ETH[employer]ON C[employer]ATIONS [id number] / / Nut Outer Xcon [id number] - [id number] Implanted:Qt y: 2 on 07/13/2010 at [place] [facility] [place]/A: Spine Cervical JNJ : ETH[employer]ON [employer] [id number] / / Screw Inner Xcon [id number] - [id number] Implanted:Qt y: 2 on 07/13/2010 at [place] [facility] [place]/A: Spine Cervical JNJ : ETH[employer]ON [employer] [id number] / / Plate 35mm Xcon [id number] - [id number] Implanted:Qt y: 1 on 07/13/2010 at [place] [facility] [place]/A: Spine Cervical JNJ : [employer]ON [employer] [id number] / / documented as of this encounter [...] the patient have Health Care Power of Quoter? No * Full Code Date Activated Date [...] Power of Attor kim? No Care Teams Stream Control Officer Relationship Specialty Start Date End Date Natalia Heller PA-C [address] [place] [address] PCP - General Physician Couples Therapist 01/06/24 documented as of this encounter
--- OUTSIDE RECORDS SUMMARY | 2024-09-05 13:27 | External Medical Summary ---
Author Name Unknown Address Unknown Organization : Laboratory Report Ordering Provider Test Date Status KACEY VALENTINE 05/09/2024 08:23:44 Final Observation Date Value Abnormality Reference (Units ) Status HbA1C 05/09/2024 08:23:44 11.2 Above high normal 4. 0-5.6 (%) Final Performing Location
--- OUTSIDE RECORDS SUMMARY | 2024-09-05 13:27 | External Medical Summary ---
Author Name Unknown Address Unknown Organization K01:[facility] [place] - [address] [place] [address] Laboratory Report Ordering Provider Test Date Status GARY WARD 05/09/2024 09:11:42 Final Observation Date Value Abnormality Reference (Units ) Status MYCODE SPECIMEN-SST 05/09/2024 09:11:42 Freezing of extracted DNA, whole blood and/or serum. Final Performing Location [facility] [place] - [address] [place] [address]
--- OUTSIDE RECORDS SUMMARY | 2024-09-05 13:27 | External Medical Summary | Summary of Care ---
Author Name Unknown Organization [facility] Address [address] [facility] [place] [address] Phone [phone] Care Team Providers Care Rf Microwave Engineer Name Role Phone Natalia Heller PA-C Primary Care Provider [phone] [phone] Encounter Details Date Type Department Care Team (Late st Contact Info) Description 04/11/2024 4:00 PM EDT Home Visit [facility] at Home, [facility] [address] [place] [address] Rosalind Smith, RN [address] [place] [address] Allergies Active Allergy Reactions Criticality Noted Date Comments Alendronate Sodium 06/24/2012 Burning sensation and difficulty breathing Proton Pump Inhibitors Hives 02/20/2002 nexium documented as of this encounter (statuses as of 04/11/2024) Medications Medication Sig Dispensed Refills Start Date [...] ([facility]) Use as directed. 10/04/2023 Acti [...] HTN, goal below 130/80,Coronary artery disease involving karuk coronary artery of karuk heart without angina pectoris TAKE ONE TABLET [...] skin once a week. Sundays. Obtaining from [employer] 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 Cardiovascular: Rate and Rhythm: Normal rate and regular rhythm. Pulses: Normal pulses. Heart sounds: Normal heart sounds. Pulmonary: Effort: Pulmonary effort is normal. Breath sounds: Normal breath sounds. Abdominal: Palpations: Abdomen is soft. Skin: General: Skin is warm and dry. Neurological: Mental Status: She is alert and oriented to person, place, and time. Problems/Symptoms: Review of Systems Constitutional: Negative. HENT: Negative. Eyes: Negative. Respiratory: Positive for shortness of breath (GARCIA - at baseline). Cardiovascular: Negative. Gastrointestinal: Negative. Genitourinary: Negative. Musculoskeletal: Positive for arthralgias and gait problem. Skin: Negative. Psychiatric/Behavioral: Negative. Medication Reconciliation: (See medication list) Does patient take medications as ordered: Yes Patient Well Being: PHQ2/9: No questionnaires available. No change in living situation No falls since last visit [facility] Completed this Visit: No. Routine visit and No falls since last visit Advanced Care Planning: No documentation, acp on file. Reinforcement/Education: DIABETES: -Blood sugar testing schedule: Twice a day, once in the morning and again 2 hours after a meal. -Blood sugar goals: Less than 120, fasting and less than 180, 2 hours after a meal -Record and take to PCP appointments -Notify your doctor if your blood sugar is consistently above goal -Hypoglycemia (low blood sugar) action plan: If blood sugar is less than 70 or having symptoms of low blood sugar eat or drink a snack of 15gm of carbohydrate (2-3 glucose tablets, glass juice, 1Cnon-fat milk, etc) wait 15 min if blood sugar still low repeat snack, wait 15 minutes if still low call health care provider. Ask provider if a medication adjustment is needed if experiencing low blood sugars frequently, twice a week or more. -Hyperglycemia (high blood sugar) action Plan: Take medications as directed, test blood sugars frequently, if above goal, contact your health care provider. Ask for changes to medication if blood sugars continue to run above goal. -Eat three well balanced meals a day 5 servings fruit/vegetable per day COPD: Pt instructed to: -Call with increased SOB, wheezing, chest tightness, increased cough, increased sputum with change in color or consistency and fever. -Wash hands often -Drink plenty of fluids -Use inhalers as directed, do not stop or skip doses -Avoid stress -Rest when tired or SOB -Avoid triggers -Clean inhalers once a week Educated on home safety: Create a fall proof home Clear floors of clutter, loose wires, throw rugs, and cords. Make sure halls, stairways, and entrances are well lit. Install a nightlight in your bedroom, hallway and bathroom. Install grab bars or handrails in the bathroom and on stairs. Use a non-skid tub/shower mat. Avoid climbing on a chair; instead use a step stool with a high handrail. Keep sidewalks and steps in good repair Keep steps and sidewalks free of snow and ice. Using aids to support and prevent falls If you have poor balance or have fallen in the past, consider additional support such as a cane or walker. Use a cane with good support and that is the proper length for you. Use a walker if a cane doesnt provide enough support. Avoid medications that increase the risk of falling by causing dizziness, change in sensation or slowed reflexes. Certain medicines may cause falls - blood pressure pills, heart medicines, water pills, or sleepingpills. Be sure to understand each medicine that you are taking and any side effects that may occur. Improve your balance and flexibility with muscle strengthening exercises. Ask your health care provider for some exercises that will be right for you. Reinforced safety education and fall prevention. and Reinforced medication regimen. Timing., Dosing., and Purspose. Treatment/Plan: Continue meds as prescribe/reviewed Fall precautions - use assistive device at all times Keep all appt as schedule Involved with [facility] clinic for DM management and anticoagulation Check bsg TID Wears insulin pump Home Interventions Provided: Home Intervention: Other; eval Reinforced current Plan of Care, including self-management and medication regimen Patient's 'Red Flags': Chest pain not relieved with ngs Increased SOB Feeling more tired/weak Patient Needs to Remember: Call [facility] at with any new or worsening health concerns or problems, red flag symptoms. Referrals Needed: Other none Follow Up: Is there cellular connectivity/connectivity in the home? No Does the patient have internet in the home? Yes Patient encouraged to call the intake phone number for all urgent but not emergent issues. Is the patient new to [facility] within the last 30 days? No, Assess appropriateness for upcoming telehealth visits. Cancel telehealth visits & schedule home visit with care customer care team coach(s)as indicated. Provider is in agreement with Plan of Care: Yes Scheduled to follow up with patient in one month. Rosalind Smith RN 04/11/2024 2:51 PM documented in this encounter Plan of Treatment Upcoming Encounters Date Type Department Care Team (Late st Contact Info) Description 04/15/2024 1:00 PM EDT Office Visit Pharmacy, [place] [address] [place] [address] [place] [address] [place] [address] 04/18/2024 10:30 AM EDT Office Visit Podiatr[address] [place] [phone] Kenny Archibald, JASMINE [address] [place] [address] 05/09/2024 8:20 AM EDT Office Visit Family Practice, [place] [address] [place] [address] Natalia Heller PA-C [address] [place] [address] 05/16/2024 8:30 AM EDT Home Visit [facility] at [facility] [address] [facility] [place] [address] Rosalind Smith, RN [address] [facility] [place] [address] 06/03/2024 9:45 AM EDT Office Visit Podiatry [address] [place] [phone] Kenny Archibald, JASMINE [address] [place] [address] 06/10/2024 8:30 AM EST Imaging Radiology [facility]st [facility] [address] [facility] [place] [address] 07/17/2024 9:00 AM EST Office Visit Cardiology, [facility] [address] [place] [address] Nesha Denney CRNP [address] [place] [address] Scheduled Procedures Name Priority Associated Diagnoses Date/Ti [...] 09/19/2022, 04/18/2021, Additional history exists COVID-19 Vaccine (2022- season) 2024 05/08/2022, 07/20/2021, 10/13/2020, Additional history exists Influenza Vaccine (FLU shot) (#1) 2024 04/04/2023, 05/08/2022, 06/18/2020, Additional history exists HbA1c 05/17/2024 11/16/2023, 04/0 04/2024, 08/30/2023, Additional history exists DTap/Tdap Vaccines (2 - Td or Tdap) 09/15/2024 09/15/2014, 07/15/2008, 02/09/1998 O2 ASSESSMENT COMPLETED IN PAST YEAR FOR COPD 09/18/2024 09/18/2023 Depression Monitoring 11/18/2024 11/19/2023 GFR 12/11/2024 12/12/2023, 04/1 04/2024, 11/16/2023, Additional history exists DXA Scan 02/19/2025 02/19/2023, 02/03, 05/12/2020, Additional history exists Pneumococcal Vaccine: 65+ Years Completed 01/20/2016, 01/15/2015, 09/18/2006, Additional history exists VITAMIN D LEVEL ONCE IN A LIFETIME-USE SMARTSET# 28166 Completed 06/18/2020, 07/25/2019, 05/20/2015, Additional history exists Lung Cancer Screening Completed 12/22/2022 , 12/09/2021, 12/24/2020, Additional history exists Colonoscopy Discontinued 09/18/2023, 09/06, 11/16/2020, Additional history exists Colorectal Cancer Screening Discontinued RETIRED - COLONOSCOPY-EVERY 2 YRS AGES 18-100 Discontinued 09/18/2023, 09/18/2023, 11/16/2020, Additional history exists Cologuard Discontinued Fecal Occult [...] this encounter Medical Devices Implanted Type Area Family Medicine Physician Assistant Device Identifier Shelf Expiration Date Model / Serial / Lot Graft Cervical 6x8 [id number] - [id number] Implanted:Qt y: 2 on 08/21/2008 [place] [facility] [place] - Human Spine Cervical [employer] [id number] / / Screw Spine 14mm -014 - [id number] Implanted:Qt y: 2 on 08/21/2008 [place] [facility] [place]/A: Spine Cervical [employer] DEPUY 50-014 / / Depuy [place] 14 Mm Sd Con Scr Implanted:Qt y: 2 on 08/21/2008 at [place] [facility] [place]/A: Spine Cervical [employer] DEPUY 60-014 / / Description:Depuy [place] 14 mm SD con SCR 34 Mm Plate Implanted:Qt y: 1 on 08/21/2008 [place] [facility] [place]/A: Spine Cervical / / Description:34 mm Depuy plat e 14 Mm Variable Rescue Implanted:Qt y: 2 on 08/21/2008 at [place] [facility] [place]/A: Spine Cervical 014 / / Description:14 mm variable r escue Screw 3.5x14 Mntr Fa [id number] - [id number] Implanted:Qt y: 10 on 07/13/2010 [place] [facility] [place]A: Spine Cervical JNJ : ETH[employer]ON C[employer]ATIONS [id number] / / Devaughn [id number] - [id number] Implanted:Qt y: 1 on 07/13/2010 [place] [facility] [place]A: Spine Cervical JNJ : ETH[employer]ON C[employer]ATIONS [id number] / / Screw Inner Mntr [id number] - [id number] Implanted:Qt y: 8 on 07/13/2010 [place] [facility] [place]A: Spine Cervical JNJ : ETH[employer]ON C[employer]ATIONS [id number] / / Nut Outer Xcon [id number] - [id number] Implanted:Qt y: 2 on 07/13/2010 at [place] [facility] [place]/A: Spine Cervical JNJ : [employer] C[employer]ATIONS [id number] / / Screw Inner Xcon [id number] - [id number] Implanted:Qt y: 2 on 07/13/2010 at [place] [facility] [place]/A: Spine Cervical JNJ : ETH[employer]ON C[employer]ATIONS [id number] / / Plate 35mm Xcon [id number] - [id number] Implanted:Qt y: 1 on 07/13/2010 at [place] [facility] [place]/A: Spine Cervical JNJ : ETH[employer]ON CARD[employer]ATIONS [id number] / / documented as of this encounter [...] the patient have Health Care Power of Seafood Harvester? No * Full Code Date Activated Date [...] Power of Attor kim? No Care Teams Rf Microwave Engineer Relationship Specialty Start Date End Date Natalia Heller PA-C [address] [facility] [place] [address] PCP - General Physician Web Design Intern 01/06/24 documented as of this encounter
--- OUTSIDE RECORDS SUMMARY | 2024-09-05 13:27 | External Medical Summary ---
Author Name Unknown Address Unknown Organization K01:LABORATORY [facility] [place] - [address] [place] [address] Laboratory Report Ordering Provider Test Date Status KACEY VALENTINE 05/09/2024 09:11:42 Final Observation Date Value Abnormality Reference (Units ) Status Vitamin B12 05/09/2024 09:11:42 [phone] (pg/mL) Final Performing Location LABORATORY [facility] - [address] [place] [address]
--- OUTSIDE RECORDS SUMMARY | 2024-09-05 13:27 | External Medical Summary | Summary of Care ---
Author Name Unknown Organization [facility] Address [address] [address] Phone [phone] Care Team Providers Care Scrum Master Name Role Phone Natalia Heller PA-C Primary Care Provider [phone] [phone] Reason for Visit * Reason Comments Dosage Adjustment In Person (Anticoag Cl inic) Encounter Details Date Type Department Care Team (Latest Contact Info) Description 04/15/2024 1:10 PM EDT Anticoagulation Pharmacy, [address] [address] [facility] [address] [place] [address] Anticoagulation management encounter*; History of DVT (deep vein thrombosis); Chronic atrial fibrillation (HCC) Allergies Active Allergy Reactions Criticality Noted Date Comments Alendronate Sodium 06/24/2012 Burning sensation and difficulty breathing Proton Pump Inhibitors Hives 02/20/2002 nexium documented as of this encounter (statuses as of 04/15/2024) Medications Medication Sig Dispensed Refills Start Date [...] Warfarin Sodium 5 MG Oral Tablet (Coumadin)Indicatio ns:rn long term care current use of anticoagulant therapy,Deep vein thrombosis (DVT) ([facility]) TAKE ONE TABLET TO ONE AND ONE-HALF TABLET BY MOUTH EVERY DAY DIRECTED BY [facility] 135 Tablet 3 09/13/2023 09/12/2024 Active Accu-Chek Guide In Vitro Strip (Glucose Blood)Indications:T ype 2 diabetes mellitus with foot ulcer, with long-term current use of insulin ([facility]),DM (diabetes mellitus) type II, controlled, with peripheral vascular disorder ([facility]) Use to test blood glucose 4 times daily. E11.9 400 Strip 3 10/04/2023 Active Accu-Chek Guide Me w/Device KitIndications:Type 2 diabetes mellitus with foot ulcer, with long-term current use of insulin ([facility]),DM (diabetes mellitus) type II, controlled, with peripheral vascular disorder ([facility]) Use as directed. 10/04/2023 Acti ve Accu-Chek Softclix LancetsIndications: Type 2 diabetes mellitus with foot ulcer, with long-term current use of insulin ([facility]),DM (diabetes mellitus) type II, controlled, with peripheral vascular disorder ([facility]) Use to test blood glucose 4 [...] HTN, goal below 130/80,Coronary artery disease involving nik[place]ki coronary artery of nik[place]ki heart without angina pectoris TAKE ONE TABLET [...] skin once a week. Sundays. Obtaining from [employer]. Active Nitroglycerin 0.3 MG Sublingual Tablet Sublingual (Nitrostat)Indicati ons:Coronary artery disease of nik[place]ki artery of [place]ik[place]ki heart with stable angina pectoris (HCC) PLACE [...] as of this encounter (statuses as of 04/15/2024) Active Problems Problem Noted Date Diagnosed Date [...] artery disease of n ative artery of nikolski heart with stable angina pectoris 12/08/2020 Last [...] Per Lipid Taxonomy. Cervical spinal stenosis 08/21/2008 penitent[facility] current use of anticoagulant therapy 0 05/03/2005 documented as of this encounter (statuses as of 04/15/2024) Resolved Problems Problem Noted Date Diagnosed Date [...] as of this encounter (statuses as of 04/15/2024) Immunizations Name Administration Dates Next Due COVID-19 [...] No 11/19/2023 Does the household have a unm hospitallar source of income? (Household - for [...] Progress Notes * Shanthi Franks RPh - 04/15/2024 12:52 PM EDT Medication Therapy Disease Management - Anticoagulation Patient: Graciela Mobley | : 1950 Subjective Patient-Reported Symptoms: Patient Findings Negatives: Signs/symptoms of thrombosis, Signs/symptoms of bleeding, Change in health, Change in alcohol use, Change in activity, Upcoming invasive procedure, Missed doses, Extra doses, Change in medications, Change in diet/appetite, Bruising Objective Current Warfarin Dose As of 04/15/2024 Warfarin maintenance plan: 10 mg (5 mg x 2) every Sun, Karen; 5 mg (5 mg x 1) all other days INR Result As of 04/15/2024 INR goal: 2.0-3.0 INR used for dosin.4 (04/15/2024) Assessment & Plan Warfarin Plan As of 04/15/2024 Full warfarin instructions: 10 mg every Sun, Karen; 5 mg all other days No change documented: Shanthi Franks RPh Next INR check: 05/08/2024 Repeat PT/INR in 3 week(s) Weekly dose: not changed Additional Dosing Information: Description I spent a total of 10-19 minutes (exact time 10 mins) on the date of service in preparation, delivery, and documentation of the care provided to Graciela Mobley excluding any time spent in the performance of separately billed services or time spent by another provider/QHP. Shanthi Franks RPh Clinical Pharmacist 04/15/2024, 12:52 PM documented in this encounter Plan of Treatment Upcoming Encounters Date Type Department Care Team (Late st Contact Info) Description 04/18/2024 10:30 AM EDT Office Visit Podiatry [address] [place] [address] Kenny Archibald DPM [address] [place] [address] 05/09/2024 8:00 AM EDT Anticoagulation Pharmacy, [place] [address] [place] [address] [facility] [address] [place] [address] 05/09/2024 8:20 AM EDT Office Visit Family Practice, [place] [address] [place] [address] Natalia Heller PA-C [address] [place] [address] 05/16/2024 8:30 AM EDT Home Visit [facility] [address] [facility] [place] [address] Rosalind Smith, RN 132 [place] [address] 06/03/2024 9:45 AM EDT Office Visit Podiatry [address] [place] [address] Kenny Archibald DPM [address] [place] [address] 06/10/2024 8:30 AM EST Imaging Radiology [address] [facility] [place] [address] 06/11/2024 11:00 AM EST Office Visit Pharmacy, [place] [address] [place] [address] [facility] [address] [place] [address] 07/17/2024 9:00 AM EST Office Visit Cardiology, [facility] [address] [place] [address] Nesha Denney CRNP [address] [place] [address] Scheduled Procedures Name Priority Associated Diagnoses Date/Ti [...] D LEVEL ONCE IN A LIFETIME-USE SMARTSET# 70107 Completed 06/18/2020, 07/25/2019, 05/20/2015, Additional history exists [...] encounter Medical Devices Implanted Type Area Manager Clinical Applications Device Identifier Shelf Expiration Date Model / Serial / Lot Graft Cervical 6x8 [id number] - [id number] Implanted:Qt y: 2 on 08/21/2008 at OR [facility] [place] Tissue - Human Spine Cervical [employer] [id number] / / Screw Spine 14mm [id number] - [id number] Implanted:Qt y: 2 on 08/21/2008 at OR [facility] [place] N/A: Spine Cervical [employer]SON [employer] CAR[employer] DEPUY 1868-50-014 / / Depuy [place] 14 Mm Sd Con Scr Implanted:Qt y: 2 on 08/21/2008 at OR [facility] [place] N/A: Spine Cervical [employer]PUY [id number] / / Description:Depuy skyline 14 mm SD con SCR 34 Mm Plate Implanted:Qt y: 1 on 08/21/2008 at OR [facility] [place] N/A: Spine Cervical / / Description:34 mm Depuy plat e 14 Mm Variable Rescue Implanted:Qt y: 2 on 08/21/2008 at OR [facility] [place] N/A: Spine Cervical [id number] / / Description:14 mm variable r escue Screw 3.5x14 Mntr Fa [id number] - [id number] Implanted:Qt y: 10 on 07/13/2010 at OR [facility] [place] N/A: Spine Cervical JNJ : [employer] [id number] / / Devaughn 3.1y809et [id number] - [id number] Implanted:Qt y: 1 on 07/13/2010 at OR [facility] [place] N/A: Spine Cervical JNJ : [employer] [id number] / / Screw Inner Mntr [id number] - [id number] Implanted:Qt y: 8 on 07/13/2010 at OR [facility] [place] N/A: Spine Cervical JNJ : [employer] [id number] / / Nut Outer Xcon [id number] - [id number] Implanted:Qt y: 2 on 07/13/2010 at OR [facility] [place] N/A: Spine Cervical JNJ : [employer] [id number] / / Screw Inner Xcon [id number] - [id number] Implanted:Qt y: 2 on 07/13/2010 at OR [facility] [place] N/A: Spine Cervical JNJ : [employer] [id number] / / Plate 35mm Xcon [id number] - [id number] Implanted:Qt y: 1 on 07/13/2010 at [place] [facility] [place] N/A: Spine Cervical JNJ : [employer] [id number] / / documented as of this encounter Procedures Procedure Name Priority Date/Time Associated Diagnosis Comments INR FINGERSTICK, POINT OF CARE STAT 04/15/2024 1:13 PM EDT History of DVT (deep vein thrombosis) Chronic atrial fibrillation (HCC) Anticoagulation management encounter documented in this encounter Results * INR FINGERSTICK, POINT OF CARE (04/15/2024 1:13 PM EDT) Fingerstick INR 2.4 INR 1:44 PM EDT LABORATORY [address] Blood 04/15/2024 1:13 PM EDT 04/15/2024 1:44 PM EDT Narrative LABORATORY [facility] 56-01 - 04/15/2024 1:44 PM EDT Therapeutic ranges for non-operative patients: Prophylaxsis/treatment of DVT: (Range:2.0-3.0) Treatment of pulmonary embolism:(Range:2.0-3.0) Prevention of systemic embolism from: -tissue heart valves -acute myocardial infarction -valvular heart disease -atrial fibrillation (Range: 2.0-3.0) Mechanical prosthetic valves: (Range: 2.5-3.5) Shanthi Franks [facility] LAB POINT OF CARE TEST DOCKED DEVICE UNSOLICITED RESULTS [facility] [address] [place] [address] documented in this encounter Visit Diagnoses Diagnosis [...] the patient have Health Care Power of Leather Flesher? No * Full Code Date Activated Date [...] Power of Attor kim? No Care Teams Scrum Master Relationship Specialty Start Date End Date Natalia Heller PA-C [address] [facility] [place] [address] PCP - General Physician Wire Temperer 01/06/24 documented as of this encounter
--- OUTSIDE RECORDS SUMMARY | 2024-09-05 13:27 | External Medical Summary ---
Author Name Unknown Address Unknown Organization : Laboratory Report Ordering Provider Test Date Status KACEY VALENTINE 05/09/2024 09:11:42 Final Observation Date Value Abnormality Reference (Units ) Status Alpha-1 antitrypsin 05/09/2024 09:11:42 183 83-199 (mg/dL) Final
Test Performed at:
[facility]
[address] [facility]
[place] [address]
Renny Tiwari M.D., Ph.D.,Director of Laboratories Performing Location
--- OUTSIDE RECORDS SUMMARY | 2024-09-05 13:27 | External Medical Summary ---
Author Name Unknown Address Unknown Organization : Laboratory Report Ordering Provider Test Date Status LETICIA HOOD 05/09/2024 08:02:38 Final Therapeutic ranges for non-o perative patients:
Prophylaxsis/treatment of DVT: (Range:2.0-3.0)
Treatment of pulmonary embolism:(Range:2.0-3.0)
Prevention of systemic embolism from:
-tissue heart valves
-acute myocardial infarction
-valvular heart disease
-atrial fibrillation
(Range: 2.0-3.0)
Mechanical prosthetic valves: (Range: 2.5-3.5) Observation Date Value Abnormality Reference (Units ) Status INR in Capillary blood by Coagulation assay 05/09/2024 08:02:38 1.3 (INR) Final Performing Location
--- OUTSIDE RECORDS SUMMARY | 2024-09-05 13:27 | External Medical Summary ---
Author Name Unknown Address Unknown Organization K01:LABORATORY [facility] - [address] [place] [address] Laboratory Report Ordering Provider Test Date Status KACEY VALENTINE 05/09/2024 09:11:42 Final Deficient: <20 ng/mL
Ins ufficient: 20-29 ng/mL
Recommended/Optimum:30-50 ng/mL

Vitamin D intoxication is rare. If suspicious of Vitamin D toxicity, evaluation of serum Calcium and PTH is recommended. Observation Date Value Abnormality Reference (Units ) Status 25-OH Vitamin D total 05/09/2024 09:11:42 15 Below low normal >19 (ng/mL) Final Performing Location [facility]ATORY [facility] - [address] [place] [address]
--- OUTSIDE RECORDS SUMMARY | 2024-09-05 13:27 | External Medical Summary | Summary of Care ---
Author Name Unknown Organization [facility] Address [address] [facility] [place] [address] Phone [phone] Care Team Providers Care Speech And Hearing Director Name Role Phone Natalia Heller PA-C Primary Care Provider [phone] Reason for Visit * Reason Comments eRx-Medication Refill Encounter Details Date Type Department Care Team (Late st Contact Info) Description 05/04/2024 Refill [facility] [address] [place] [address] Natalia Heller PA-C [address] [place] [address] Allergies Active Allergy Reactions Criticality Noted Date Comments Alendronate Sodium 06/24/2012 Burning sensation and difficulty breathing Proton Pump Inhibitors Hives 02/20/2002 nexium documented as of this encounter (statuses as of 05/06/2024) Medications Medication Sig Dispensed Refills Start Date End Date Status Multiple Vitamin (DAILY VALUE MULTIVITAMIN) Tablet Take 1 Tablet by mouth in the morning. Active Fluticasone Propionate 50 MCG/ACT Nasal Suspension (Flonase)Indicatio ns:Chronic rhinitis Administer 2 Sprays into each nostril in the morning. 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 E11.9 400 Strip 3 4 Active Accu-Chek Guide Me w/Device KitIndications:Typ e 2 diabetes mellitus with foot ulcer, with long-term current use of insulin ([facility]),DM (diabetes mellitus) type II, controlled, with peripheral vascular disorder ([facility]) Use as directed. 4 Active Accu-Chek Softclix LancetsIndications :Type 2 diabetes mellitus with foot ulcer, with long-term current use of insulin ([facility]),DM (diabetes mellitus) type II, controlled, with peripheral vascular disorder ([facility]) Use to test blood glucose 4 times daily. DX: E11.9 400 Each 3 4 Active Rosuvastatin Calcium 20 MG Oral Tablet (Crestor)Indicatio ns:Dyslipidemia, goal LDL below 70 Take 1 Tablet by mouth in the morning. 90 Tablet 3 4 Active Insulin Aspart 100 UNIT/ML Injection Solution (NovoLOG) Inject under the skin. 310 units in pump. Getting from [employer]onordisk PAP Active Aspirin 81 MG Oral Tablet Delayed Release Take 1 Tablet by mouth in the morning. 4 Active Furosemide 20 MG Oral Tablet (Lasix) Take 1 Tablet by mouth once a day on Sunday, Sunday, and Sunday only. 45 Tablet 3 4 Active Potassium Chloride ER 10 MEQ Oral Capsule Extended Release Take 1 Capsule by mouth once a day on Sunday, Sunday, and Sunday only. 45 Capsule 3 4 Active traZODone HCl 50 MG Oral Tablet (Desyrel)Indicatio ns:Primary insomnia TAKE 1 TABLET BY MOUTH EVERY DAY AT BEDTIME 90 Tablet 3 4 Active Metoprolol Succinate ER 50 MG Oral Tablet Extended Release 24 Hour (toPROL XL) TAKE ONE TABLET BY MOUTH TWICE A DAY 180 Tablet 3 4 01/07/20 25 Active Isosorbide Mononitrate ER 60 MG Oral Tablet Extended Release 24 Hour (Imdur)Indications :HTN, goal below 130/80,Coronary artery disease involving [place] coronary artery of [place] heart without angina pectoris TAKE ONE TABLET BY MOUTH EVERY MORNING 90 Tablet 01/15/20 25 Active metFORMIN HCl 1000 MG Oral Tablet (Glucophage)Indica tions:DM type 1 causing neurological disease, 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 Active Ozempic (2 MG/DOSE) 8 MG/3ML Subcutaneous Solution Pen-injector (Semaglutide (2 MG/DOSE)) Inject 2 mg under the skin once a week. Sundays. Obtaining from [employer]. Active Nitroglycerin 0.3 MG Sublingual Tablet Sublingual (Nitrostat)Indicat ions:Coronary artery disease of [place] artery of [place] heart with stable angina pectoris (HCC) PLACE 1 TABLET UNDER THE TONGUE EVERY 5 MINUTES UP TO 3 DOSES NEEDED FOR CHEST PAIN. IF NO RELIEF CALL 911 OR GO TO ER 25 Tablet 11 02/05/20 25 Active Albuterol Sulfate HFA 108 (90 Base) MCG/ACT Inhalation Aerosol SolutionIndication s:Bronchitis, complicated Inhale 2 Puffs by mouth 4 times daily 54 g 3 4 Active Sertraline HCl 50 MG Oral Tablet (Zoloft) TAKE 1 AND 1/2 TABLETS BY MOUTH AT BEDTIME 135 Tablet 1 4 Active Sertraline HCl 50 MG Oral Tablet (Zoloft) Take 1.5 Tablets by mouth at bedtime. 135 Tablet 3 3 05/06/20 24 Discontinued documented as of this encounter (statuses as of 05/06/2024) Active Problems Problem Noted Date Diagnosed Date [...] artery disease of n ative artery of [place] heart with stable angina pectoris 12/08/2020 Last [...] Per Lipid Taxonomy. Cervical spinal stenosis 08/21/2008 skilled nursing current use of anticoagulant therapy 0 05/03/2005 documented as of this encounter (statuses as of 05/06/2024) Resolved Problems Problem Noted Date Diagnosed Date [...] as of this encounter (statuses as of 05/06/2024) Immunizations Name Administration Dates Next Due COVID-19 mRNA, LNP-s, No Pre serve, 2-Dose Series (Moderna) 10/13/2020,09/15/2020 COVID-19, mRNA, LNP-s, PF, B ooster, 100mcg/0.5mg (Moderna) 07/20/2021 Covid-19, Mrna, Lnp-s, Pf, B ivalent, 30 Mcg, IM, 12 yrs and above ([employer]) 05/08/2022 Pneumococcal Conjugate Vacc, 13 Valent (Prevnar) [...] encounter Miscellaneous Notes * Telephone Encounter - Mitzi Sarabia [facility] - 05/06/2024 11:50 AM EDT Signed Prescriptions: Disp Refills Sertraline HCl 50 MG Oral Tablet (Zoloft) 135 Ta*1 Sig: TAKE 1 AND 1/2 TABLETS BY MOUTH AT BEDTIMEAuthorizing Provider: NATALIA HELLER AOrdering User: MITZI SARABIA documented in this encounter Plan of Treatment Upcoming Encounters Date Type Department Care Team (Late st Contact Info) Description 05/09/2024 8:00 AM EDT [facility]tico[facility], [place] [address] [facility] [address] [facility] [address] [facility] [address] 05/09/2024 8:20 AM EDT Office Visit [facility] [place] [address] [facility] [address] Natalia Heller PA-C [address] [facility] [address] 05/16/2024 8:30 AM EDT [facility] Visit [facility] [address] [facility] [place] [address] Rosalind Smith, RN [address] [place] [address] 06/03/2024 9:45 AM EDT Office Visit Podiatry [address] [place] [address] Kenny Archibald, Nik [address] [place] [address] 06/10/2024 8:30 AM EST Imaging Radiology [facility] [address] [facility] [place] [address] 06/11/2024 11:00 AM EST Office Visit Pharmacy, [place] [address] [place] [address] [facility] [address] [place] [address] 07/17/2024 9:00 AM EST Office Visit Cardiology, [facility] [address] [facility] [place] [address] Nesha Denney CRNP 132 [facility] [place] [address] Scheduled Procedures Name Priority Associated Diagnoses Date/Ti [...] D LEVEL ONCE IN A LIFETIME-USE SMARTSET# 11976 Completed 06/18/2020, 07/25/2019, 05/20/2015, Additional history exists [...] encounter Medical Devices Implanted Type Area Senior Packaging Engineer Device Identifier Shelf Expiration Date Model / Serial / Lot Graft Cervical 6x8 [id number] - [id number] Implanted:Qt y: 2 on 08/21/2008 at [place] [facility] [place] Tissue - Human Spine Cervical [employer] [id number] / / Screw Spine 14mm 50-014 - [id number] Implanted:Qt y: 2 on 08/21/2008 at OR [facility] [place] N/A: Spine Cervical CARSON [employer] CAR[employer] DEPUY 50-014 / / Depuy [place] 14 Mm Sd Con Scr Implanted:Qt y: 2 on 08/21/2008 at [place] [facility] [place] N/A: Spine Cervical [employer] CARSON DEPUY [id number] / / Description:Depuy skyline 14 mm SD con SCR 34 Mm Plate Implanted:Qt y: 1 on 08/21/2008 at [place] [facility] [place] N/A: Spine Cervical 034 / / Description:34 mm Depuy plat e 14 Mm Variable Rescue Implanted:Qt y: 2 on 08/21/2008 at [place] [facility] [place] N/A: Spine Cervical [id number] / / Description:14 mm variable r escue Screw 3.5x14 Mntr Fa [id number] - [id number] Implanted:Qt y: 10 on 07/13/2010 at [place] [facility] [place] N/A: Spine Cervical JNJ : ETH[employer]ATIONS [id number] / / Devaughn [id number] - [id number] Implanted:Qt y: 1 on 07/13/2010 at [place] [facility] [place] N/A: Spine Cervical JNJ : ETH[employer] [id number] / / Screw Inner Mntr [id number] - [id number] Implanted:Qt y: 8 on 07/13/2010 at [place] [facility] [place] N/A: Spine Cervical JNJ : ETH[employer]ON [employer]ATIONS [id number] / / Nut Outer Xcon [id number] - [id number] Implanted:Qt y: 2 on 07/13/2010 at [place] [facility] [place] N/A: Spine Cervical JNJ : ETH[employer]ON [employer] [id number] / / Screw Inner Xcon [id number] - [id number] Implanted:Qt y: 2 on 07/13/2010 at [place] [facility] [place] N/A: Spine Cervical JNJ : ETH[employer] [id number] / / Plate 35mm Xcon [id number] - [id number] Implanted:Qt y: 1 on 07/13/2010 at [place] [facility] [place] N/A: Spine Cervical JNJ : ETH[employer]ON [employer] [id number] / / documented as of this encounter [...] the patient have Health Care Power of Business Unit Manager? No * Full Code Date Activated [...] Power of Attor kim? No Care Teams Speech And Hearing Director Relationship Specialty Start Date End Date Natalia Heller PA-C [address] [place] [address] PCP - General Physician Fork Truck Driver 01/06/24 documented as of this encounter
--- OUTSIDE RECORDS SUMMARY | 2024-09-05 13:27 | External Medical Summary | Summary of Care ---
Author Name Unknown Organization [facility] Address [address] [address] Phone [phone] Care Team Providers Care Continuity Coordinator Name Role Phone Natalia Heller PA-C Primary Care Provider [phone] Reason for Visit * Reason Onset Date Comments Dosage Adjustment In Person (Anticoag Clinic) Diabetes Follow-Up Insulin Pump Medication Administration 04/15/2024 Flu an d/or Pneumo Inj Encounter Details Date Type Department Care Team (Late st Contact Info) Description 04/15/2024 1:00 PM EDT Office Visit Pharmacy, [address] [address] [facility] [address] [place] [address] Type 2 diabetes mellitus with foot ulcer, with long-term current use of insulin ([facility])*; DM (diabetes mellitus) type II, controlled, with peripheral vascular disorder (HCC); Need for prophylactic vaccination and inoculation against influenza Allergies Active Allergy Reactions Criticality Noted Date [...] Warfarin Sodium 5 MG Oral Tablet (Coumadin)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 E11.9 400 Strip 3 10/04/2023 Active Accu-Chek Guide Me w/Device KitIndications:Type 2 diabetes mellitus with foot ulcer, with long-term current use of insulin ([facility]),DM (diabetes mellitus) type II, controlled, with peripheral vascular disorder ([facility]) Use as directed. 10/04/2023 Acti ve Accu-Chek Softclix LancetsIndications: Type 2 diabetes mellitus with foot ulcer, with long-term current use of insulin ([facility]),DM (diabetes mellitus) type II, controlled, with peripheral vascular disorder ([facility]) Use to test blood glucose [...] HTN, goal below 130/80,Coronary artery disease involving [place] coronary artery of [place] heart without angina pectoris TAKE ONE TABLET [...] skin once a week. Sundays. Obtaining from [employer]. Active Nitroglycerin 0.3 MG Sublingual Tablet Sublingual (Nitrostat)Indicati ons:Coronary artery disease of [place] artery of [place] heart with stable angina pectoris (HCC) PLACE [...] disease of n ative artery of [place] heart with stable angina pectoris 12/08/2020 Last [...] this encounter Progress Notes * Shanthi Franks, [facility] - 04/15/2024 1:02 PM EDT Images from the original note [...] 08/30/23 Medtronic 780G Insulin Pump (Serial Number: [id number]) Infusion Set: Quick set Insulin: Novolog Basal Rate: (increased at all times) midnight to 6am: 7.0 units/hour 6am to 12am: 7.5 units/hour 12am to midnight 8.0 units/hour Bolus: 25 units [...] Hyperglycemia symptoms present: none Recent Labs Units 11/16/23 0000 11/13/23 0431 08/30/23 1008 HEMOGLOBIN A1C - [facility] % -- 10.2* 10.2* HEMOGLOBIN, H1G-YEQHJBJ LAB 10.4* -- -- Recent Labs Units 12/12/23 1523 11/23/23 1023 11/16/23 0000 ESTIMATED GLOMERULAR FILTRATION RATE - [facility] mL/min 64 70 -- EGFR-OUTSIDE LAB -- -- 60.6 CREATININE - [facility] mg/dL 0.9 0.9 -- CREATININE-OUTSIDE LAB -- -- 1.05 HYPERTENSION: Patient on ACEi/ARB: no, not using BP Readings from Last 3 Encounters: 01/03/24 112/62 12/28/23 106/56 12/11/23 102/62 Blood pressure at goal: yes HYPERLIPIDEMIA: Patient is taking moderate or high intensity statin: yes HEALTH MAINTENANCE REVIEW: Health Maintenance Due Topic [...] long-term current use of insulin ([facility]) E11.621 L97.509 Z79.4 2. DM (diabetes mellitus) type II, controlled, with peripheral vascular disorder ([facility]) E11.51 Considerations: - over [employer] income as of 2021 - patient approved for NovoNordisk PAP - omnipod not an option due to cost (on [facility], would push to [facility] immediately) + pt's current insulin requirement. Glycemic control is unstable and not at goal Patient agreeable to adjust medications as noted below. Basal settings continued as they are essentially maxed out. ICR continued although patient does notcount carbs. Fixed dose continued, but pt advised to take 15 units with baked goods. She was previously doing only 5 units and we discussed that with her insulin requirements, 5 units will not appropriately cover a dessert/baked good. ISF continued and patient was shown how to give a correction dose on her pump. She is using about 300 units per day. She was encouraged to eat veggies with every meal, and eat those first before indulging on other components of meal. Patient to SMBG at least 4 times daily, before each meal and at bedtime. Patient aware to contact clinic if any hypoglycemia before next visit. Reviewed rule of 15s. Reviewed appropriate management of hyperglycemia as noted in pump start documentation. MEDICATION CHANGES: Diabetic Medications: Metformin 1000mg twice daily Ozempic 2 mg once weekly- Sundays GFR 74 as of 08/30/23 Medtronic 780G Insulin Pump (Serial Number: [id number]) Infusion Set: Quick set Insulin: Novolog Basal Rate: midnight to 6am: 7.0 units/hour 6am to 12am: 7.5 units/hour 12am to midnight 8.0 units/hour Bolus: 25 units [...] BID FOLLOW UP: Return to clinic in 8 weeks I spent a total of 30-39 minutes (exact time 36 mins) on the date of service in preparation, delivery, and documentation of the care provided to Graciela Mobley excluding any time spent in the performance of separately billed services. Shanthi Franks RPh Clinical Pharmacist - Automatic Spreader Operator Medication Therapy Management [facility] 04/15/2024, 1:04 PM PRE - ADMINISTRATION DOCUMENTATION Are you experiencing any cold symptoms or fever? No Have you had Guillain-[place] Syndrome (an illness that causes paralysis) within the last 6 weeks? No Have you had the flu shot in the past? YES Have you ever had a reaction to the flu shot? No Shanthi Franks RPh, 04/15/2024 1:27 PM Immunization Administration Documentation Time Out Procedure Performed: Yes Patient Identified (Ask Name/Date of ): Yes Does the patient have a fever greater than 101 degrees today? No Patient allergic to latex? No VFC Stock: No Immunization(s) verified: Yes, Immunization Name: Flu, VIS Sheet(s) given: Yes Verified Side and Site: Yes Verified Shot(s) with Parent(s)/Patient: Yes documented in this encounter Plan of Treatment Upcoming Encounters Date Type Department Care Team (Late st Contact Info) Description 04/18/2024 10:30 AM EDT Office Visit Podiatry [address] [place] [phone] Kenny Archibald, JASMINE [address] [place] [address] 05/09/2024 8:00 AM EDT Anticoagulation Pharmacy, [place] [address] [place] [address] [facility] [address] [place] [address] 05/09/2024 8:20 AM EDT Office Visit Family Practice, [place] [address] [place] [address] Natalia Heller PA-C [address] [place] [address] 05/16/2024 8:30 AM EDT Home Visit [facility] [address] [facility] [place] [address] Rosalind Smith, RN [address] [facility] [place] [address] 06/03/2024 9:45 AM EDT Office Visit Podiatry [facility] [address] [facility] [address] [place] [phone] Kenny Archibald, JASMINE [address] [place] [address] 06/10/2024 8:30 AM EST Imaging Radiology [address] [facility] [place] [address] 06/11/2024 11:00 AM EST Office Visit [facility], [place] [address] [facility] [address] [facility] [address] [facility] [place] [address] 07/17/2024 9:00 AM EST Office Visit Cardiology, [facility] [address] [place] [address] Nesha Denney CRNP [address] [place] [address] Scheduled Procedures Name Priority Associated Diagnoses Date/Ti [...] D LEVEL ONCE IN A LIFETIME-USE SMARTSET# 36028 Completed 06/18/2020, 07/25/2019, 05/20/2015, Additional history exists [...] Medical Devices Implanted Type Area Director Of Special Events Device Identifier Shelf Expiration Date Model / Serial / Lot Graft Cervical 6x8 [id number] - [id number] Implanted:Qt y: 2 on 08/21/2008 [place] [facility] [place] - Human Spine Cervical [employer] [id number] / / Screw Spine 14mm [id number] - [id number] Implanted:Qt y: 2 on 08/21/2008 at [place] [facility] [place] N/A: Spine Cervical [employer] DEPUY [id number] / / Depuy Wann 14 Mm Sd Con Scr Implanted:Qt y: 2 on 08/21/2008 at [place] [facility] [place] N/A: Spine Cervical [employer] DEPUY 60-014 / / Description:Depuy skyline 14 mm SD con SCR 34 Mm Plate Implanted:Qt y: 1 on 08/21/2008 at [place] [facility] [place] N/A: Spine Cervical / / Description:34 mm Depuy plat e 14 Mm Variable Rescue Implanted:Qt y: 2 on 08/21/2008 at [place] [facility] [place] N/A: Spine Cervical / / Description:14 mm variable r escue Screw 3.5x14 Mntr Fa [id number] - [id number] Implanted:Qt y: 10 on 07/13/2010 at [place] [facility] [place] N/A: Spine Cervical JNJ : [employer] [id number] / / Devaughn 3.5p107iu [id number] - [id number] Implanted:Qt y: 1 on 07/13/2010 at [place] [facility] [place] N/A: Spine Cervical JNJ : [employer] [id number] / / Screw Inner Mntr [id number] - [id number] Implanted:Qt y: 8 on 07/13/2010 at [place] [facility] [place] N/A: Spine Cervical JNJ : [employer] [id number] / / Nut Outer Xcon [id number] - [id number] Implanted:Qt y: 2 on 07/13/2010 at [place] [facility] [place] N/A: Spine Cervical JNJ : [employer] [id number] / / Screw Inner Xcon [id number] - [id number] Implanted:Qt y: 2 on 07/13/2010 at [place] [facility] [place] N/A: Spine Cervical JNJ : [employer] [id number] / / Plate 35mm Xcon [id number] - [id number] Implanted:Qt y: 1 on 07/13/2010 at [place] [facility] [place] N/A: Spine Cervical JNJ : [employer] [id number] / / documented as of this encounter Visit Diagnoses Diagnosis Type 2 diabetes mellitus with foot ulcer, with long-term current use of insulin (HCC)- Primary DM (diabetes mellitus) type II, controlled, with peripheral vascular disorder (HCC) Need for prophylactic vaccination and inoculation against influenza documented in this encounter Advance Directives * [...] the patient have Health Care Power of Auto Suspension And Steering Mechanic? No * Full Code Date Activated Date [...] Power of Attor kim? No Care Teams Continuity Coordinator Relationship Specialty Start Date End Date Natalia Heller PA-C [address] [facility] [place] [address] PCP - General Physician Motorboat Mechanic Inboard/Outboard 01/06/24 documented as of this encounter
--- OUTSIDE RECORDS SUMMARY | 2024-09-05 13:27 | External Medical Summary ---
Author Name Unknown Address Unknown Organization K01:[facility] [place] [address] [facility] [address] Laboratory Report Ordering Provider Test Date Status SERGEDAVIONARELI 05/09/2024 09:11:42 Final Observation Date Value Abnormality Reference (Units ) Status HbA1C 05/09/2024 09:11:42 11.1 Above high normal 4. 0-5.6 (%) Final The use of HbA1c to monitor glycemic status is based on normal hemoglobin and HbA composition. This test should not be used in patients with abnormal hemoglobin that affects the half life of the red blood cell or the in vivo glycation rates. Glucose, estimated average 05/09/2024 09:11:42 272 Above high normal <126 (mg/dL) Josh hudson Performing Location [facility] [address] [facility] [address]
--- OUTSIDE RECORDS SUMMARY | 2024-09-05 13:27 | External Medical Summary ---
Author Name Unknown Address Unknown Organization : Laboratory Report Ordering Provider Test Date Status LETICIA HOOD 04/15/2024 13:13:39 Final Therapeutic ranges for non-o perative patients:
Prophylaxsis/treatment of DVT: (Range:2.0-3.0)
Treatment of pulmonary embolism:(Range:2.0-3.0)
Prevention of systemic embolism from:
-tissue heart valves
-acute myocardial infarction
-valvular heart disease
-atrial fibrillation
(Range: 2.0-3.0)
Mechanical prosthetic valves: (Range: 2.5-3.5) Observation Date Value Abnormality Reference (Units ) Status INR in Capillary blood by Coagulation assay 04/15/2024 13:13:39 2.4 (INR) Final Performing Location
--- OUTSIDE RECORDS SUMMARY | 2024-09-05 13:28 | External Medical Summary | Summary of Care ---
Author Name Unknown Organization [facility] Address [address] [facility] [place] [address] Phone [phone] Care Team Providers Care Office Messenger Name Role Phone Natalia Heller PA-C Primary Care Provider [phone] [phone] Reason for Visit * Reason Comments Dosage Adjustment Via Phone (anticoag Cl inic) Encounter Details Date Type Department Care Team (Latest Contact Info) Description 03/20/2024 6:10 PM EDT Anticoagulation Pharmacy, [address] [address] [facility] [address] [place] [address] History of DVT (deep vein thrombosis)*; Chronic atrial fibrillation (HCC) Allergies Active Allergy Reactions Criticality Noted Date Comments Alendronate Sodium 06/24/2012 Burning sensation and difficulty breathing Proton Pump Inhibitors Hives 02/20/2002 nexium documented as of this encounter (statuses as of 03/20/2024) Medications Medication Sig Dispensed Refills Start Date [...] at bedtime. 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 10/04/2023 Active Accu-Chek [...] once a day on Sunday, Sunday, and [place] only. 45 Capsule 3 12/12/2023 Active traZODone HCl 50 MG Oral Tablet (Desyrel)Indications :Primary insomnia TAKE 1 TABLET BY MOUTH EVERY DAY AT BEDTIME 90 Tablet 3 01/03/2024 Active Metoprolol Succinate ER 50 MG Oral Tablet Extended Release 24 Hour (toPROL XL) TAKE ONE TABLET BY MOUTH TWICE A DAY 180 Tablet 3 01/07/2024 Active Isosorbide Mononitrate ER 60 MG Oral Tablet Extended Release 24 Hour (Imdur)Indications:H [place], goal below 130/80,Coronary artery disease involving [place] coronary artery of [place] heart without angina pectoris TAKE ONE TABLET BY MOUTH EVERY MORNING 90 Tablet 3 01/15/2024 Active metFORMIN HCl 1000 MG Oral Tablet [...] skin once a week. Sundays. Obtaining from [employer]. Active Nitroglycerin 0.3 MG Sublingual Tablet Sublingual (Nitrostat)Indicatio ns:Coronary artery disease of [place] artery of [place] [...] as of this encounter (statuses as of 03/20/2024) Active Problems Problem Noted Date Diagnosed Date [...] [place] heart with stable angina pectoris 12/08/2020 Last [...] Per Lipid Taxonomy. 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 (Household - [...] as of this encounter Progress Notes * Avril Oliveros PHARM Tech - 03/20/2024 11:15 AM EDT Patient Phone Numbers [facility]. Appointment scheduled as noted below. 03/20/2024 Thank you, Avril Oliveros Signalman [facility] 03/20/2024, 11:15 AM documented in this encounter Plan of Treatment Upcoming Encounters Date Type Department Care Team (Late st Contact Info) Description 03/20/2024 3:10 PM EDT [facility], [place] [address] [address] [facility] [address] [facility] [address] [address] [place] [address] 04/11/2024 4:00 PM EDT Home Visit [facility] at [facility] [address] [place] [address] Rosalind Smith, RN [address] [place] [address] 04/15/2024 1:00 PM EDT Office Visit Pharmacy, [place] [address] [address] [facility] [address] [facility] [address] [facility] [place] [address] 04/18/2024 10:30 AM EDT Office Visit Podiatr[address] [place] [phone] Kenny Archibald, JASMINE [address] [place] [address] 05/09/2024 8:20 AM EDT Office Visit [facility] [address] [place] [address] Natalia Heller PA-C [address] [place] [address] 06/03/2024 9:45 AM EDT Office Visit Podiatr[address] [place] [phone] Kenny Archibald, JASMINE [address] [place] [address] 06/10/2024 8:30 AM EST Imaging Radiology [facility] [address] [facility] [place] [address] 07/17/2024 9:00 AM EST [facility], [facility] [place] [address] Nesha Denney CRNP [address] [facility] [place] [address] Scheduled Procedures Name Priority Associated Diagnoses Date/Ti [...] Visit 03/27/2023 03/27/2022, 01/19/20 21 COVID-19 Vaccine (2022- season) 2023 05/08/2022, 07/20/2021, 10/13/2020, Additional history exists Albumin/Creatinine Ratio 01/03/2024 023, 09/19/2022, 04/18/2021, Additional history exists Influenza Vaccine (FLU shot) (#1) 2024 04/04/2023, 05/08/2022, 06/18/2020, Additional history exists HbA1c 05/17/2024 11/16/2023, 04/0 04/2024, 08/30/2023, Additional history exists DTaP,Tdap,and Td Vaccines (2 [...] D LEVEL ONCE IN A LIFETIME-USE SMARTSET# 57410 Completed 06/18/2020, 07/25/2019, 05/20/2015, Additional history exists [...] this encounter Medical Devices Implanted Type Area Jinriksha Driver Device Identifier Shelf Expiration Date Model / Serial / Lot Graft Cervical 6x8 [id number] - [id number] Implanted:Qt y: 2 on 08/21/2008 [place] [facility] [place] - Human Spine Cervical [employer] [id number] / / Screw Spine 14mm 50-014 - [id number] Implanted:Qt y: 2 on 08/21/2008 at [place] [facility] [place] N/A: Spine Cervical [employer] DEPUY 50-014 / / Depuy [place] 14 Mm Sd Con Scr Implanted:Qt y: 2 on 08/21/2008 at [place] [facility] [place] N/A: Spine Cervical [employer] 60-014 / / Description:Depuy skyline 14 mm SD con SCR 34 Mm Plate Implanted:Qt y: 1 on 08/21/2008 at [place] [facility] [place] N/A: Spine Cervical 034 / / Description:34 mm Depuy plat e 14 Mm Variable Rescue Implanted:Qt y: 2 on 08/21/2008 at [place] [facility] N/A: Spine Cervical [id number] / / Description:14 mm variable r escue Screw 3.5x14 Mntr Fa [id number] - [id number] Implanted:Qt y: 10 on 07/13/2010 at [place] [facility] [place] N/A: Spine Cervical JNJ : ETH[employer] C[employer] [id number] / / Devaughn 3.7i041am [id number] - [id number] Implanted:Qt y: 1 on 07/13/2010 at [place] [facility] [place] N/A: Spine Cervical JNJ : [employer] [id number] / / Screw Inner Mntr [id number] - [id number] Implanted:Qt y: 8 on 07/13/2010 at [place] [facility] [place] N/A: Spine Cervical JNJ : [employer] [id number] / / Nut Outer Xcon [id number] - [id number] Implanted:Qt y: 2 on 07/13/2010 at [place] [facility] [place] N/A: Spine Cervical JNJ : [employer] [id number] / / Screw Inner Xcon [id number] - [id number] Implanted:Qt y: 2 on 07/13/2010 at [place] [facility] N/A: Spine Cervical JNJ : [employer] [id number] / / Plate 35mm Xcon [id number] - [id number] Implanted:Qt y: 1 on 07/13/2010 at [place] [facility] [place] N/A: Spine Cervical JNJ : [employer] [id number] / / documented as of this encounter [...] the patient have Health Care Power of [employer]? No * Full Code Date Activated Date [...] Power of Attor kim? No Care Teams Office Messenger Relationship Specialty Start Date End Date Natalia Heller PA-C [address] [place] [address] PCP - General Physician Dining Room Attendant 01/06/24 documented as of this encounter
--- OUTSIDE RECORDS SUMMARY | 2024-09-05 13:28 | External Medical Summary | Summary of Care ---
Author Name Unknown Organization [facility] Address [address] [facility] [place] [address] Phone [phone] Care Team Providers Care Seo Analyst Name Role Phone Natalia Heller PA-C Primary Care Provider [phone] Encounter Details Date Type Department Care Team (Late st Contact Info) Description 03/25/2024 Telephone [facility] [address] [place] [address] Natalia Heller PA-C [address] [place] [address] Allergies Active Allergy Reactions Criticality Noted Date Comments Alendronate Sodium 06/24/2012 Burning sensation and difficulty breathing Proton Pump Inhibitors Hives 02/20/2002 nexium documented as of this encounter (statuses as of 03/25/2024) Medications Medication Sig Dispensed Refills Start Date [...] Warfarin Sodium 5 MG Oral Tablet (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 E11.9 400 Strip 3 10/04/2023 Active Accu-Chek Guide Me w/Device KitIndications:Type 2 diabetes mellitus with foot ulcer, with long-term current use of insulin ([facility]),DM (diabetes mellitus) type II, controlled, with peripheral vascular disorder ([facility]) Use as directed. 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 Active Ozempic (2 MG/DOSE) 8 MG/3ML Subcutaneous Solution Pen-injector (Semaglutide (2 MG/DOSE)) Inject 2 mg under the skin once a week. Sundays. Obtaining from [employer]. 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) PLACE [...] as of this encounter (statuses as of 03/25/2024) Active Problems Problem Noted Date Diagnosed Date [...] artery disease of n ative artery of lummi heart with stable angina pectoris 12/08/2020 Last [...] as of this encounter (statuses as of 03/25/2024) Resolved Problems Problem Noted Date Diagnosed Date [...] as of this encounter (statuses as of 03/25/2024) Immunizations Name Administration Dates Next Due COVID-19 mRNA, LNP-s, No Pre serve, 2-Dose Series (Moderna) 10/13/2020,09/15/2020 COVID-19, mRNA, LNP-s, PF, B ooster, 100mcg/0.5mg (Moderna) 07/20/2021 Covid-19, Mrna, Lnp-s, Pf, B ivalent, 30 Mcg, IM, 12 yrs and above ([employer]) 05/08/2022 Pneumococcal Conjugate Vacc, 13 Valent (Prevnar) [...] encounter Miscellaneous Notes * Telephone Encounter - Destinee Ceron LPN - 03/25/2024 12:37 PM EDT Call placed to let patient know her Omarempic is at the office to be picked up during normal businesshours documented in this encounter Plan of Treatment Upcoming Encounters Date Type Department Care Team (Late st Contact Info) Description 04/11/2024 4:00 PM EDT [facility] Visit [facility] [address] [facility] [place] [address] Rosalind Smith RN [address] [facility] [place] [address] 04/15/2024 1:00 PM EDT Office Visit Pharmacy, [place] [address] [facility] [address] [facility] [address] [facility] [place] [address] 04/18/2024 10:30 AM EDT Office Visit Podiatry [address] [place] [address] Kenny Archibald, [place] [address] [place] [address] 05/09/2024 8:20 AM EDT Office Visit Family [facility], [place] [address] [facility] [phone] Natalia Heller PALoiC [address] [facility] [place] [address] 06/03/2024 9:45 AM EDT Office Visit Podiatry [address] [place] [address] Kenny Archibald, DPM [address] [place] [address] 06/10/2024 8:30 AM EST Imaging Radiology [facility] 1st Floor, [place] [address] [facility] [place] [address] 07/17/2024 9:00 AM EST Office Visit Cardiology, [facility] [address] [facility] [place] [address] Nesha Denney CRNP [address] [place] [address] Scheduled Procedures Name Priority Associated Diagnoses Date/Ti [...] 03/27/2022, 01/19/20 21 COVID-19 Vaccine ( season) 2023 05/08/2022, 07/20/2021, [...] D LEVEL ONCE IN A LIFETIME-USE SMARTSET# [id number] Completed 06/18/2020, 07/25/2019, 05/20/2015, Additional history exists [...] this encounter Medical Devices Implanted Type Area Feed Mill Manager Device Identifier Shelf Expiration Date Model / Serial / Lot Graft Cervical 6x8 [id number] - [id number] [place]planted:Qt y: 2 [place]21[place] [facility] [place] Human Spine Cervical [employer] [id number] / / Screw Spine 14mm - [id number] Implanted:Qt y: 2 on 08/21/2008 [place] [facility] [place]A: Spine Cervical [employer]SON [employer] DEPUY / / Depuy [place] 14 Mm Sd Con Scr Implanted:Qt y: 2 on 08/21/2008 [place] [facility] [place]: Spine Cervical [employer] DEPUY / / Description:Depuy skyline 14 mm SD con SCR 34 Mm Plate Implanted:Qt y: 1 on 08/21/2008 [place] [facility] [place]A: Spine Cervical / / Description:34 mm Depuy plat e 14 Mm Variable Rescue Implanted:Qt y: 2 on 08/21/2008 [place] [facility] [place]A: Spine Cervical / / Description:14 mm variable r escue Screw 3.5x14 Mntr Fa [id number] - [id number] Implanted:Qt y: 10 on 07/13/2010 [place] [facility] [place]: Spine Cervical JNJ : [employer] [id number] / / Devaughn 3.3t769of [id number] - [id number] Implanted:Qt y: 1 on 07/13/2010 [place] [facility] [place]: Spine Cervical JNJ : [employer] [id number] / / Screw Inner Mntr [id number] - [id number] Implanted:Qt y: 8 on 07/13/2010 [place] [facility] [place]: Spine Cervical JNJ : [employer] [id number] / / Nut Outer Xcon [id number] - [id number] Implanted:Qt y: 2 on 07/13/2010 [place] [facility] [place]: Spine Cervical JNJ : [employer] [id number] / / Screw Inner Xcon [id number] - [id number] Implanted:Qt y: 2 on 07/13/2010 [place] [facility] [place]: Spine Cervical JNJ : [employer] [id number] / / Plate 35mm Xcon [id number] - [id number] Implanted:Qt y: 1 on 07/13/2010 [place] [facility] [place]: Spine Cervical JNJ : [employer] [id number] / / documented as of this encounter [...] the patient have Health Care Power of Clamp Jig Assembler? No * Full Code Date Activated Date [...] Power of Attor kim? No Care Teams Seo Analyst Relationship Specialty Start Date End Date Natalia Heller PA-C [address] [facility] [place] [address] PCP - General Physician Drawing Supervisor 01/06/24 documented as of this encounter
--- OUTSIDE RECORDS SUMMARY | 2024-09-05 13:28 | External Medical Summary | Summary of Care ---
Author Name Unknown Organization [facility] [address] [facility] [address] Phone [phone] Care Team Providers Care Washroom Attendant Name Role Phone Natalia Heller PA-C Primary Care Provider [phone] Reason for Visit * Reason Comments [facility]: Maintenance Encounter Details Date Type Department Care Team (Late st Contact Info) Description 03/14/2024 10:00 AM EDT [facility] Visit [facility], [facility] [address] [place] [address] Rosalind Smith, RN [address] [place] [address] Allergies Active Allergy Reactions Criticality Noted Date Comments Alendronate Sodium 06/24/2012 Burning sensation and difficulty breathing Proton Pump Inhibitors Hives 02/20/2002 nexium documented as of this encounter (statuses as of 04/05/2024) Medications Medication Sig Dispensed Refills Start Date [...] Sodium 5 MG Oral Tablet (Coumadin)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 10/04/2023 Active Accu-Chek [...] [place], goal below 130/80,Coronary artery disease involving big [...] skin once a week. Sundays. Obtaining from [employer]. Active Nitroglycerin 0.3 MG Sublingual Tablet Sublingual (Nitrostat)Indicatio ns:Coronary artery disease of [place] artery [...] as of this encounter (statuses as of 04/05/2024) Active Problems Problem Noted Date Diagnosed Date [...] Per Lipid Taxonomy. Cervical spinal stenosis 08/21/2008 halfway current use of anticoagulant therapy 0 05/03/2005 documented as of this encounter (statuses as of 04/05/2024) Resolved Problems Problem Noted Date Diagnosed Date [...] as of this encounter (statuses as of 04/05/2024) Immunizations Name Administration Dates Next Due COVID-19 [...] No 11/19/2023 Does the household have a [facility] source [facility] income? (Household - [...] Sign Reading Time Taken Comments Blood Pressure 118/64 03/14/2024 3:33 PM EDT Pulse 92 03/14/2024 3:33 PM EDT Temperature 35.9 C (96.6 F) 03/14/2024 3:33 PM ED T Respiratory Rate 18 03/14/2024 3:33 PM EDT Oxygen Saturation 98% 03/14/2024 3:33 PM EDT Inhaled Oxygen Concentration - - [...] Progress Notes * Rosalind Smith RN - 03/14/2024 3:33 PM EDT [facility] Programmer Analyst Consultant Visit Date: 03/14/2024 Time: 3:33 PM Name: Graciela Mobley : 1950 Current Concerns: Pt seen for return RNCM visit [facility] for right toe laceration 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 and somehow it straightened out and "cracked open", causing a laceration on plantar side Convenient care provider applied glue and then she had f/u with podiatry Has f/u with podiatry again next week The area has glue intact with some dried blood crusted Area cleansed with NSS and applied bacitracin and bandaid Pt reports she has no feeling in her foot so she cannot feel any pain There are no s/s of infection Pt reports her breathing has been at baseline She states she does have a decreased appetite with being on the ozempic No LE edema Does not do weights at home Physical Exam: BP 118/64 | Pulse 92 | Temp 35.9 C (96.6 F) | Resp 18 | LMP 06/06/2001 | SpO2 98% Pain 0 Problems/Symptoms: Review of Systems Constitutional: Negative. HENT: Negative. Eyes: Negative. Respiratory: Positive for shortness of breath (GARCIA - at baseline). Cardiovascular: Negative. Gastrointestinal: Negative. Genitourinary: Negative. Musculoskeletal: Positive for arthralgias and gait problem. Skin: Positive for wound. Allergic/Immunologic: Positive for environmental allergies. Neurological: Positive for numbness (feet). Psychiatric/Behavioral: Negative. Medication Reconciliation: (See medication list) Does patient take medications as ordered: Yes Patient Well Being: PHQ2/9: No questionnaires available. No change in living situation [facility] Completed this Visit: No. Routine visit Advanced Care Planning: No documentation, acp [...] for you. Reinforced safety education and fall prevention., Reinforced incisional/wound care., and Reinforcedmedication regimen. Timing., Dosing., and Purspose. Treatment/Plan: Continue meds as prescribe/reviewed Fall precautions - use assistive device at all times Keep all appt as schedule Involved with [facility] for DM management and anticoagulation Check bsg TID Wears insulin pump Continue daily wound care to great toe - cleanse with NSS, apply bacitracin and bandaid Home Interventions Provided: Home Intervention: Wound Care and Other; eval Reinforced current Plan of Care, including self-management and medication regimen Patient's 'Red Flags': Chest pain not relieved with ngs Increased SOB Feeling more tired/weak Patient Needs to Remember: Call [facility] at with any new or worsening health concerns or problems, red flag symptoms. Referrals Needed: Other none Follow Up: Is there cellular connectivity/connectivity in the home? No Does the patient have internet in the home? Yes Patient encouraged to call the intake phone number for all urgent but not emergent issues. Is the patient new to [facility] within the last 30 days? No, Assess appropriateness for upcoming telehealth visits. Cancel telehealth visits & schedule home visit with care steam conditioning operator(s)as indicated. Provider is in agreement with Plan of Care: Yes Scheduled to follow up with patient in one month. Rosalind Smith RN 03/14/2024 3:33 PM documented in this encounter Plan of Treatment Upcoming Encounters Date Type Department Care Team (Late st Contact Info) Description 04/11/2024 4:00 PM EDT [facility] [address] [facility] [place] [address] Rosalind Smith, RN [address] [place] [address] 04/15/2024 1:00 PM EDT Office Visit Pharmacy, [place] [address] [place] [address] [facility] [address] [place] [address] 04/18/2024 10:30 AM EDT Office Visit Podiatr[address] [phone] Kenny Archibald, [address] [address] 05/09/2024 8:20 AM EDT Office Visit Family Practice, [place] [address] [place] [address] Natalia Heller PA-C [address] [place] [address] 06/03/2024 9:45 AM EDT Office Visit Podiatr[address] [place] [phone] Kenny Archibald, [facility] [address] [place] [address] 06/10/2024 8:30 AM EST Imaging Radiology [facility] [address]st [facility], [place] [address] [place] [address] 07/17/2024 9:00 AM EST Office Visit Cardiology, [facility] [address] [place] [address] Nesha Denney CRNP [address] [place] [address] Scheduled Procedures Name Priority Associated Diagnoses Date/Ti [...] 01/03/202401/02/2 023, 09/19/2022, 04/18/2021, Additional history exists Influenza [...] D LEVEL ONCE IN A LIFETIME-USE SMARTSET# [id number] Completed 06/18/2020, 07/25/2019, 05/20/2015, Additional history exists [...] this encounter Medical Devices Implanted Type Area Dental Manager Device Identifier Shelf Expiration Date Model / Serial / Lot Graft Cervical 6x8 [id number] - [id number] Implanted:Qt y: 2 on 08/21/2008 at OR [facility] Tissue - Human Spine Cervical Lif[employer]et Co [id number] / / Screw Spine 14mm 1868-50-014 - [id number] Implanted:Qt y: 2 on 08/21/2008 at OR [facility] N/A: Spine Cervical CARSON & CARSON DEPUY 1868-50-014 / / Depuy [place] 14 Mm Sd Con Scr Implanted:Qt y: 2 on 08/21/2008 at OR [facility] N/A: Spine Cervical [employer] CAR[employer] DEPUY 1868-60-014 / / Description:Depuy skyline 14 mm SD con SCR 34 Mm Plate Implanted:Qt y: 1 on 08/21/2008 at OR [facility] N/A: Spine Cervical 02- / / Description:34 mm Depuy plat e 14 Mm Variable Rescue Implanted:Qt y: 2 on 08/21/2008 at OR [facility] N/A: Spine Cervical 54-014 / / Description:14 mm variable r escue Screw 3.5x14 Mntr Fa [id number] - [id number] Implanted:Qt y: 10 on 07/13/2010 at OR [facility] N/A: Spine Cervical JNJ : ETH[employer]ON C[employer]IOVATIONS [id number] / / Devaughn [id number] - [id number] Implanted:Qt y: 1 on 07/13/2010 at OR [facility] N/A: Spine Cervical JNJ : ETH[employer]ON CARDI[employer]ATIONS [id number] / / Screw Inner Mntr [id number] - [id number] Implanted:Qt y: 8 on 07/13/2010 at OR [facility] N/A: Spine Cervical JNJ : [employer]ATIONS [id number] / / Nut Outer Xcon [id number] - [id number] Implanted:Qt y: 2 on 07/13/2010 at OR [facility] N/A: Spine Cervical JNJ : ETH[employer]ON C[employer]ATIONS [id number] / / Screw Inner Xcon [id number] - [id number] Implanted:Qt y: 2 on 07/13/2010 at OR [facility] N/A: Spine Cervical JNJ : ETH[employer]ON C[employer]ATIONS [id number] / / Plate 35mm Xcon [id number] - [id number] Implanted:Qt y: 1 on 07/13/2010 at OR [facility] N/A: Spine Cervical JNJ : ETH[employer]ON C[employer]ATIONS [id number] / / documented as of this encounter [...] patient have Health Care Power of Nail Making Machine Setter? No * Full Code Date Activated Date [...] Power of Attor kim? No Care Teams Washroom Attendant Relationship Specialty Start Date End Date Natalia Heller PA-C [address] [facility] [place] [address] PCP - General Physician Electroplater Apprentice 01/06/24 documented as of this encounter
--- OUTSIDE RECORDS SUMMARY | 2024-09-05 13:28 | External Medical Summary | Summary of Care ---
Author Name Unknown Organization [facility] Address [address] [facility] [place] [address] Phone [phone] Care Team Providers Care Health Education Teacher Name Role Phone Natalia Heller PA-C Primary Care Provider [phone] [phone] Encounter Details Date Type Department Care Team (Latest Contact Info) Description 03/18/2024 [facility] [address] [place], [place] [id number] [facility] [address] [place] [address] Medication management* Allergies Active Allergy Reactions Criticality Noted Date Comments Alendronate Sodium 06/24/2012 Burning sensation and difficulty breathing Proton Pump Inhibitors Hives 02/20/2002 nexium documented as of this encounter (statuses as of 03/18/2024) Medications Medication Sig Dispensed Refills Start Date [...] Sodium 5 MG Oral Tablet (Coumadin)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 Sundays. Obtaining from [employer]. Active Nitroglycerin 0.3 MG Sublingual Tablet Sublingual (Nitrostat)Indicatio ns:Coronary artery disease of [place] artery of [place] heart with stable angina pectoris (HCC) PLACE [...] as of this encounter (statuses as of 03/18/2024) Active Problems Problem Noted Date Diagnosed Date [...] artery disease of n ative artery of [place] heart with stable angina pectoris 12/08/2020 Last [...] as of this encounter (statuses as of 03/18/2024) Resolved Problems Problem Noted Date Diagnosed Date [...] as of this encounter (statuses as of 03/18/2024) Immunizations Name Administration Dates Next Due COVID-19 mRNA, LNP-s, No Pre serve, 2-Dose Series (Moderna) 10/13/2020,09/15/2020 COVID-19, mRNA, LNP-s, PF, B ooster, 100mcg/0.5mg (Moderna) 07/20/2021 Covid-19, Mrna, Lnp-s, Pf, B ivalent, 30 Mcg, IM, 12 yrs and above (DealDash) 05/08/2022 Pneumococcal Conjugate Vacc, 13 Valent (Prevnar) [...] No 11/19/2023 Does the household have a [facility] source of income? (Household - for ages [...] as of this encounter Progress Notes * Mark Franks RPh - 03/18/2024 1:27 PM EDT Graciela Mobley is a 74 year old female. TMR Interventions Incomplete Encounter MTPs No medication therapy recommendations to display Complete Encounter MTPs Medication management Current Medication: Warfarin Sodium 5 MG Oral Tablet (Coumadin) Rationale: Patient Education - Needs Education Recommendation: Self-Monitoring Note: patient had CMR done with [facility] pharmacist, and reguarly follows appointments, no need forassessment by cece griffin at this time Assessment & Plan Indication, effectiveness, safety and convenience of her medications were reviewed today. The patient's medical conditions were assessed, evaluated, and deemed meeting goals of drug therapy, with thefollowing exceptions. Additional Notes: none Mark Franks RPh 03/18/2024, 1:27 PM documented in this encounter Plan of Treatment Upcoming Encounters Date Type Department Care Team (Late st Contact Info) Description 03/20/2024 6:10 PM EDT [address] [address] [place], [facility] [address] 04/11/2024 8:30 AM EDT Home Visit [facility]ce at [facility] [address] [place] [address] Rosalind Smith RN [address] [place] [address] 04/14/2024 6:10 PM EDT [address], [address] [address] [facility] [address] [place] [address] 04/18/2024 10:30 AM EDT Office Visit Podiatr[address] [place] [address] Kenny Archibald, DP [address] [place] [address] 05/09/2024 8:20 AM EDT Office Visit [facility] [place] [address] [place] [phone] Natalia Heller PA-C [address] [place] [address] 06/03/2024 9:45 AM EDT Office Visit Podiatr[address] [place] [phone] Kenny Archibald, [facility] [address] [place] [address] 06/10/2024 8:30 AM EST Imaging Radiology [address] [facility] [address] 07/17/2024 9:00 AM EST Office Visit Card[facility], [facility] [address] [place] [address] Nesha Denney CRNP 132 [facility] [place] [address] Scheduled Procedures Name Priority Associated Diagnoses Date/Ti [...] D LEVEL ONCE IN A LIFETIME-USE SMARTSET# 76816 Completed 06/18/2020, 07/25/2019, 05/20/2015, Additional history exists [...] this encounter Medical Devices Implanted Type Area Psychology Professor Device Identifier Shelf Expiration Date Model / Serial / Lot Graft Cervical 6x8 [id number] - [id number] Implanted:Qt y: 2 on 08/21/2008 at [place] [facility] [place] Tissue - Human Spine Cervical Lif[employer]et Co [id number] / / Screw Spine 14mm 8-50-014 - [id number] Implanted:Qt y: 2 on 08/21/2008 at OR [facility] [place] N/A: Spine Cervical CARSON [employer] CARSON DEPUY 1868-50-014 / / Depuy [place] 14 Mm Sd Con Scr Implanted:Qt y: 2 on 08/21/2008 at OR [facility] [place] N/A: Spine Cervical CARSON [employer] CARSON DEPUY 1868-60-014 / / Description:Depuy [place]yline 14 mm SD con SCR 34 Mm Plate Implanted:Qt y: 1 on 08/21/2008 at OR [facility] [place] N/A: Spine Cervical 1868-02-034 / / Description:34 mm Depuy plat e 14 Mm Variable Rescue Implanted:Qt y: 2 on 08/21/2008 at OR [facility] [place] N/A: Spine Cervical 1868-54-014 / / Description:14 mm variable r escue Screw 3.5x14 Mntr Fa [id number] - [id number] Implanted:Qt y: 10 on 07/13/2010 at OR [facility] [place] N/A: Spine Cervical JNJ : ETHICON [employer]ATIONS [id number] / / Devaughn [id number] - [id number] Implanted:Qt y: 1 on 07/13/2010 at OR [facility] [place] N/A: Spine Cervical JNJ : ETHICON C[employer]IOVATIONS [id number] / / Screw Inner Mntr [id number] - [id number] Implanted:Qt y: 8 on 07/13/2010 at OR [facility] [place] N/A: Spine Cervical JNJ : ETHICON CARDIOVATIONS [id number] / / Nut Outer Xcon [id number] - [id number] Implanted:Qt y: 2 on 07/13/2010 at OR [facility] [place] N/A: Spine Cervical JNJ : ETHICON C[employer]OVATIONS [id number] / / Screw Inner Xcon [id number] - [id number] Implanted:Qt y: 2 on 07/13/2010 at [place] [facility] [place] N/A: Spine Cervical JNJ : ETHICON CARDIOVATIONS [id number] / / Plate 35mm Xcon [id number] - [id number] Implanted:Qt y: 1 on 07/13/2010 at [place] [facility] [place] N/A: Spine Cervical JNJ : ETHICON C[employer]IOVATIONS [id number] / / documented as of this encounter Visit Diagnoses Diagnosis Medication management- Primary Encounter for long-term (current) use of [...] the patient have Health Care Power of Diver Assistant? No * Full Code Date Activated [...] Power of Attor kim? No Care Teams Health Education Teacher Relationship Specialty Start Date End Date Natalia Heller PA-C [address] [facility] [place] [address] PCP - General Physician Hide House Supervisor 01/06/24 documented as of this encounter
--- OUTSIDE RECORDS SUMMARY | 2024-09-05 13:29 | External Medical Summary | Summary of Care ---
Author Name Unknown Organization [facility] Address [address] [facility] [address] Phone [phone] Care Team Providers Care Oil Pipe Inspector Name Role Phone Natalia Heller PA-C Primary Care Provider [phone] Reason for Visit * Reason Comments Appointment No Show Encounter Details Date Type Department Care Team (Latest Contact Info) Description 03/10/2024 6:10 PM EDT Anticoagulation Pharmacy, [address] [address] [facility] [address] [place] [address] Anticoagulation management encounter* Allergies Active Allergy Reactions Criticality Noted Date Comments Alendronate Sodium 06/24/2012 Burning sensation and difficulty breathing Proton Pump Inhibitors Hives 02/20/2002 nexium documented as of this encounter (statuses as of 03/10/2024) Medications Medication Sig Dispensed Refills Start Date [...] MG Oral Tablet (Coumadin)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 10/04/2023 Active [...] [place], goal below 130/80,Coronary artery disease involving [place] coronary artery of [place] heart without angina pectoris TAKE ONE TABLET [...] skin once a week. Sundays. Obtaining from [facility]. Active Nitroglycerin 0.3 MG Sublingual Tablet Sublingual (Nitrostat)Indicatio ns:Coronary artery disease of [place] artery of [place] heart with stable angina pectoris (HCC) PLACE [...] as of this encounter (statuses as of 03/10/2024) Active Problems Problem Noted Date Diagnosed Date [...] artery disease of n ative artery of [place] heart with stable angina pectoris 12/08/2020 Last [...] as of this encounter (statuses as of 03/10/2024) Resolved Problems Problem Noted Date Diagnosed Date [...] as of this encounter (statuses as of 03/10/2024) Immunizations Name Administration Dates Next Due COVID-19 [...] this encounter Progress Notes * Sakina Heath, electrician's assistant - 03/10/2024 8:17 AM EDT Patient Phone Numbers Unable to leave message on patients answering machine to schedule [facility] appointment for coag management. Received fast busy signal. Tried to call twice. [employer] message sent --no Clinic will follow up again in 1 week(s). Thank you, Sakina Heath, [facility] Auditor Appraiser II [facility] 03/10/2024,8:17 AM documented in this encounter Plan of Treatment Upcoming Encounters Date Type Department Care Team (Late st Contact Info) Description 03/14/2024 10:00 AM EDT Home Visit [facility] at Home, [facility] [address] [place] [address] Rosalind Smith RN [address] [address] 03/17/2024 6:10 PM EDT Pharmacy Pharmacy, [place] [address] [facility] [address] [facility] [address] [facility] [address] 03/20/2024 6:10 PM EDT Anticoagulation Pharmacy, [place] [address] [address] [facility] [address] [facility] [address] [facility] [address] 05/09/2024 8:20 AM EDT [facility] [place] [address] [place] [address] Natalia Heller PA-C [address] [place] [address] 06/03/2024 9:45 AM EDT Office Visit Podiatry [facility], [address] [place] [phone] Kenny Archibald, DPM [address] [place], [place] [address] 06/10/2024 8:30 AM EST Imaging Radiology [address] 132 [facility] [place] [address] Scheduled Procedures Name Priority Associated Diagnoses Date/Ti [...] 06/18/2020, Additional history exists HbA1c 05/17/2024 11/16/2023, 04/2024, 08/30/2023, Additional history exists DTaP,Tdap,and Td [...] D LEVEL ONCE IN A LIFETIME-USE SMARTSET# [id number] Completed 06/18/2020, 07/25/2019, 05/20/2015, Additional history exists [...] encounter Medical Devices Implanted Type Area Medical Detail Representative Device Identifier Shelf Expiration Date Model / Serial / Lot Graft Cervical 6x8 [id number] - [id number] Implanted:Qt y: 2 on 08/21/2008 at [place] [facility] [place] Tissue - Human Spine Cervical Lif[employer] Co [id number] / / Screw Spine 14mm 1868-50-014 - [id number] Implanted:Qt y: 2 on 08/21/2008 at [place] [facility] N/A: Spine Cervical CARSON [employer] CARSON DEPUY [id number] / / Depuy [place] 14 Mm Sd Con Scr Implanted:Qt y: 2 on 08/21/2008 at [place] [facility] N/A: Spine Cervical CAR[employer] CARSON DEPUY 60 / / Description:Depuy skyline 14 mm SD con SCR 34 Mm Plate Implanted:Qt y: 1 on 08/21/2008 at [place] [facility] N/A: Spine Cervical / / Description:34 mm Depuy plat e 14 Mm Variable Rescue Implanted:Qt y: 2 on 08/21/2008 at [place] [facility] N/A: Spine Cervical / / Description:14 mm variable r escue Screw 3.5x14 Mntr Fa [id number] - [id number] Implanted:Qt y: 10 on 07/13/2010 at [place] [facility] N/A: Spine Cervical JNJ : ETHICON CARDIOVATIONS [id number] / / Devaughn 3.4r988ae [id number] - [id number] Implanted:Qt y: 1 on 07/13/2010 at [place] [facility] N/A: Spine Cervical JNJ : ETHICON CARDIOVATIONS [id number] / / Screw Inner Mntr [id number] - [id number] Implanted:Qt y: 8 on 07/13/2010 at [place] [facility] N/A: Spine Cervical JNJ : ETHICON CARDIOVATIONS [id number] / / Nut Outer Xcon [id number] - [id number] Implanted:Qt y: 2 on 07/13/2010 at [place] [facility] N/A: Spine Cervical JNJ : ETH[employer]ON CARDIOVATIONS [id number] / / Screw Inner Xcon [id number] - [id number] Implanted:Qt y: 2 on 07/13/2010 at [place] [facility] N/A: Spine Cervical JNJ : ETHICON CARDIOVATIONS [id number] / / Plate 35mm Xcon [id number] - [id number] Implanted:Qt y: 1 on 07/13/2010 at [place] [facility] [place] N/A: Spine Cervical JNJ : ETHICON CARDIOVATIONS [id number] / / documented as of this encounter Visit Diagnoses Diagnosis Anticoagulation management encounter- Primary Encounter for therapeutic drug monitoring documented in [...] the patient have Health Care Power of Career Development Consultant? No * Full Code Date Activated [...] Power of Attor kim? No Care Teams Oil Pipe Inspector Relationship Specialty Start Date End Date Natalia Heller PA-C [address] [facility] [place] [address] PCP - General Physician Admissions Manager 01/06/24 documented as of this encounter
--- OUTSIDE RECORDS SUMMARY | 2024-09-05 13:29 | External Medical Summary | Summary of Care ---
Author Name Unknown Organization [facility] Address [address] [facility] [place] [address] Phone [phone] Care Team Providers Care Colorist Name Role Phone Natalia Heller PA-C Primary Care Provider [phone] Reason for Visit * Reason Onset Date Comments Advice 03/10/2024 Encounter Details Date Type Department Care Team (Late st Contact Info) Description 03/10/2024 Telephone [facility] [address] [place] [address] Natalia Heller PA-C [address] [place] [address] Advice Allergies Active Allergy Reactions [...] long-term current use of insulin ([facility]),DM (diabetes mellitus) type II, controlled, with peripheral vascular disorder ([facility]) Use to test blood glucose 4 times daily. E11.9 400 Strip 3 10/04/2023 Active Accu-Chek Guide Me w/Device KitIndications:Type 2 diabetes mellitus with foot ulcer, with long-term current use of insulin ([facility]),DM (diabetes mellitus) type II, controlled, with peripheral vascular disorder ([facility]) Use as directed. 10/04/2023 Active Accu-Chek Softclix LancetsIndications:T ype 2 diabetes mellitus with foot ulcer, with long-term current use of insulin ([facility]),DM (diabetes mellitus) type II, controlled, with peripheral vascular disorder ([facility]) Use to test blood glucose 4 times [...] [place], goal below 130/80,Coronary artery disease involving [place] coronary artery of [place] heart without angina pectoris TAKE ONE TABLET [...] skin once a week. Sundays. Obtaining from [employer]. Active Nitroglycerin 0.3 MG Sublingual Tablet Sublingual (Nitrostat)Indicatio ns:Coronary artery disease of [place] artery of [place] heart with stable angina pectoris (HCC) PLACE [...] artery disease of n ative artery of [place] heart with stable angina pectoris 12/08/2020 Last [...] Telephone Encounter - Natalia Heller PA-C - 03/10/2024 5:17 PM EDT noted Natalia Heller PA-C * Telephone Encounter - Yasmin Shultz LPN - 03/10/2024 4:54 PM EDT Patient's calling in: He stated that she is severe diabetic and on blood thinners. He stated that she is Bleeding from her foot, she has no feeling in her feet and does not know how long she was bleeding for and he cannotget it to stop. He wanted to know if he could come up to the office for an appointment. Advised that the office would be closing in 5 minutes. He stated that he would go to the [facility]. Spoke [facility] and they will discuss with their provider about her arrival. Will call patient if they feel she needs to go to the ER. FYI to PCP * Telephone Encounter - Doreen Black OSA - 03/10/2024 4:51 PM EDT Reason for patient's call: pt bleeding between her toes, unsure of how long it has been bleeding but can't get it to stop, pt is also on blood thinners so is concerned and would like to talk to someone. Caller was transferred to Yasmin at the nurse line. documented in this encounter Plan of Treatment Upcoming Encounters Date Type Department Care Team (Latest Contact Info) Description 03/10/2024 6:10 PM EDT Anticoagulation Pharmacy, [place] [address] [place] [address] [facility] [address] [place] [address] Anticoagulation management encounter* 03/14/2024 10:00 AM EDT Home Visit [facility] at [facility] 132 [facility] [place] [address] Rosalind Smith, RN [address] [facility] [address] 03/17/2024 6:10 PM EDT Pharmacy Pharmacy, [place] [address] [place] [address] [facility] [address] [place] [address] 03/20/2024 6:10 PM EDT Anticoagulation Pharmacy, [place] [address] [place] [address] [facility] [address] [place] [address] 05/09/2024 8:20 AM EDT Office Visit [facility], [place] [address] [place] [address] Natalia Heller PA-C [address] [place] [address] 06/03/2024 9:45 AM EDT Office Visit Podiatry [address] [place] [address] Kenny Archibald, JASMINE [address] [place] [address] 06/10/2024 8:30 AM EST Imaging Radiology [facility], [address] [place] [address] Scheduled Procedures Name Priority Associated Diagnoses Date/Ti [...] D LEVEL ONCE IN A LIFETIME-USE SMARTSET# 56576 Completed 06/18/2020, 07/25/2019, 05/20/2015, Additional history exists [...] this encounter Medical Devices Implanted Type Area Coin Machine Servicer Repairer Device Identifier Shelf Expiration Date Model / Serial / Lot Graft Cervical 6x8 [id number] - [id number] Implanted:Qt y: 2 on 08/21/2008 at [place] [facility] Tissue - Human Spine Cervical Lif[employer] Co [id number] / / Screw Spine 14mm 50-014 - [id number] Implanted:Qt y: 2 on 08/21/2008 at [place] [facility] N/A: Spine Cervical CARSON [employer] CARSON DEPUY 8-50-014 / / Depuy [place] 14 Mm Sd Con Scr Implanted:Qt y: 2 on 08/21/2008 at [place] [facility] N/A: Spine Cervical [employer] CAR[employer] DEPUY 60-014 / / Description:Depuy skyline 14 mm SD con SCR 34 Mm Plate Implanted:Qt y: 1 on 08/21/2008 at [place] [facility] N/A: Spine Cervical 02-034 / / Description:34 mm Depuy plat e 14 Mm Variable Rescue Implanted:Qt y: 2 on 08/21/2008 at [place] [facility] N/A: Spine Cervical 54-014 / / Description:14 mm variable r escue Screw 3.5x14 Mntr Fa [id number] - [id number] Implanted:Qt y: 10 on 07/13/2010 at [place] [facility] N/A: Spine Cervical JNJ : ETHICON CARDIOVATIONS [id number] / / Devaughn 3.3m222ig [id number] - [id number] Implanted:Qt y: 1 on 07/13/2010 at [place] [facility] N/A: Spine Cervical JNJ : ETH[employer]ON CARDIOVATIONS [id number] / / Screw Inner Mntr [id number] - [id number] Implanted:Qt y: 8 on 07/13/2010 at [place] [facility] N/A: Spine Cervical JNJ : ETH[employer]ON C[employer]ATIONS [id number] / / Nut Outer Xcon [id number] - [id number] Implanted:Qt y: 2 on 07/13/2010 at [place] [facility] N/A: Spine Cervical JNJ : ETH[employer] C[employer] [id number] / / Screw Inner Xcon [id number] - [id number] Implanted:Qt y: 2 on 07/13/2010 at [place] [facility] N/A: Spine Cervical JNJ : ETH[employer]ON C[employer] [id number] / / Plate 35mm Xcon [id number] - [id number] Implanted:Qt y: 1 on 07/13/2010 at [place] [facility] N/A: Spine Cervical JNJ : [employer]ON C[employer]ATIONS [id number] / / documented as of this encounter [...] the patient have Health Care Power of Patient Relations Director? No * Full Code Date Activated Date [...] Power of Attor kim? No Care Teams Colorist Relationship Specialty Start Date End Date Natalia Heller PA-C [address] [facility] [place] [place] [address] PCP - General Physician Rn Nursery 01/06/24 documented as of this encounter
--- OUTSIDE RECORDS SUMMARY | 2024-09-05 13:29 | External Medical Summary | Summary of Care ---
Author Name Unknown Organization [facility] Address [address] [facility] [place] [address] Phone [phone] Care Team Providers Care Rag Sorter And Cutter Name Role Phone Natalia Heller PA-C Primary Care Provider [phone] Reason for Visit * Reason Comments Appointment Encounter Details Date Type Department Care Team (Late st Contact Info) Description 03/17/2024 6:10 PM EDT Pharmacy Pharmacy, [address] [address] [facility] [address] [place] [address] Type 2 diabetes mellitus with foot ulcer, with long-term current use of insulin (HCC)*; DM (diabetes mellitus) type II, controlled, with peripheral vascular disorder (HCC) Allergies Active Allergy Reactions Criticality Noted Date Comments Alendronate Sodium 06/24/2012 Burning sensation and difficulty breathing Proton Pump Inhibitors Hives 02/20/2002 nexium documented as of this encounter (statuses as of 03/17/2024) Medications Medication Sig Dispensed Refills Start Date [...] disorder ([facility]) Use as directed. 10/04/2023 Active Accu-Chek [...] [place], goal below 130/80,Coronary artery disease involving [place] coronary artery of [place] heart without angina pectoris TAKE ONE TABLET [...] skin once a week. Sundays. Obtaining from [employer]. Active Nitroglycerin 0.3 MG Sublingual Tablet Sublingual (Nitrostat)Indicatio ns:Coronary artery disease of [place] artery of [place] heart with stable angina pectoris (HCC) PLACE [...] as of this encounter (statuses as of 03/17/2024) Active Problems Problem Noted Date Diagnosed Date [...] artery disease of n ative artery of [place] heart with stable angina pectoris 12/08/2020 Last [...] as of this encounter (statuses as of 03/17/2024) Resolved Problems Problem Noted Date Diagnosed Date [...] as of this encounter (statuses as of 03/17/2024) Immunizations Name Administration Dates Next Due COVID-19 [...] of this encounter Progress Notes * Sakina Heath card seller - 03/17/2024 8:18 AM EDT Patient Phone Numbers Left message on patients answering machine to schedule [facility] appointment for diabetes management. [facility] message sent --no Clinic will follow up again in 4 week(s). [Attempt # 2] Thank you, Sakina Heath [facility] Orthopaedic General II [facility] ([facility]) 03/17/2024,8:18 AM documented in this encounter Plan of Treatment Upcoming Encounters Date Type Department Care Team (Late st Contact Info) Description 03/20/2024 6:10 PM EDT Anticoagulation Pharmacy, [address] [address] [facility] [address] [place] [address] 03/21/2024 10:15 AM EDT Office Visit Podiatry [address] [place] [address] Kenny Archibald DPM [facility] [place] [address] 04/11/2024 8:30 AM EDT Home Visit [place], [facility] [address] [place] [address] Rosalind Smith, RN 132 [facility] [place] [address] 04/14/2024 6:10 PM EDT Pharmacy Pharmacy, [place] [address] [facility] [place] [address] [place], [facility] [address] [facility] [place] [address] 05/09/2024 8:20 AM EDT Office Visit Family Practice, [place] [address] [facility], [place] [id number] Natalia Heller PA-C [address] [facility] [place] [address] 06/03/2024 9:45 AM EDT Office Visit Podiatry [address] [place] [phone] Kenny Archibald, [facility] [address] [place] [address] 06/10/2024 8:30 AM EST Imaging Radiology [address] 132 [facility] [place] [address] Scheduled Procedures Name Priority Associated Diagnoses Date/Ti [...] D LEVEL ONCE IN A LIFETIME-USE SMARTSET# 65137 Completed 06/18/2020, 07/25/2019, 05/20/2015, Additional history exists [...] this encounter Medical Devices Implanted Type Area Cd Mixer Device Identifier Shelf Expiration Date Model / Serial / Lot Graft Cervical 6x8 [id number] - [id number] Implanted:Qt y: 2 on 08/21/2008 at [place] [facility] [place] Tissue - Human Spine Cervical [employer] [id number] / / Screw Spine 14mm [id number] - [id number] Implanted:Qt y: 2 on 08/21/2008 at [place] [facility] N/A: Spine Cervical [employer] CARSON DEPUY 50014 / / Depuy [place] 14 Mm Sd Con Scr Implanted:Qt y: [...] [place] N/A: Spine Cervical / / Description:14 mm variable r escue Screw 3.5x14 Mntr Fa [id number] - [id number] Implanted:Qt y: 10 on 07/13/2010 at [place] [facility] N/A: Spine Cervical JNJ : [employer] [id number] / / Devaughn [id number] - [id number] Implanted:Qt y: 1 on 07/13/2010 at [place] [facility] N/A: Spine Cervical JNJ : ETH[employer]ON [employer]ATIONS [id number] / / Screw Inner Mntr [id number] - [id number] Implanted:Qt y: 8 on 07/13/2010 at [place] [facility] N/A: Spine Cervical JNJ : ETH[employer]ON [employer]ATIONS [id number] / / Nut Outer Xcon [id number] - [id number] Implanted:Qt y: 2 on 07/13/2010 at [place] [facility] N/A: Spine Cervical JNJ : [employer]ON [employer] [id number] / / Screw Inner Xcon [id number] - [id number] Implanted:Qt y: 2 on 07/13/2010 at [place] [facility] N/A: Spine Cervical JNJ : Wink CARDIOAvatripS [id number] / / Plate 35mm Xcon [id number] - [id number] Implanted:Qt y: 1 on 07/13/2010 at [place] [facility] N/A: Spine Cervical JNJ : Wink CARDIOAvatripS [id number] / / documented as of this encounter [...] the patient have Health Care Power of Disability Coordinator? No * Full Code Date Activated [...] Power of Attor kim? No Care Teams Rag Sorter And Cutter Relationship Specialty Start Date End Date Natalia Heller PA-C [address] [facility] [place] [address] PCP - General Physician Edi Coordinator 01/06/24 documented as of this encounter
--- OUTSIDE RECORDS SUMMARY | 2024-09-05 13:29 | External Medical Summary | Summary of Care ---
Author Name Unknown Organization [facility] Address [address] [facility] [address] Phone [phone] Care Team Providers Care Store Manager Name Role Phone Natalia Heller PA-C Primary Care Provider [phone] Reason for Visit * Reason Onset Date Comments [facility]: Maintenance 03/14/2024 Encounter Details Date Type Department Care Team (Late st Contact Info) Description 03/14/2024 Telephone [facility], [facility] [address] [place] [address] Rosalind Smith, RN [address] [place] [address] [facility]: Maintenance Allergies Active Allergy [...] ulcer, with long-term current use of insulin ([facility]),DM (diabetes mellitus) type II, controlled, with peripheral vascular disorder ([facility]) Use to test blood glucose 4 times daily. E11.9 400 Strip 3 10/04/2023 Active Accu-Chek Guide Me w/Device KitIndications:Type 2 diabetes mellitus with foot ulcer, with long-term current use of insulin ([facility]),DM (diabetes mellitus) type II, controlled, with peripheral vascular disorder ([facility]) Use as directed. 10/04/2023 Active Accu-Chek Softclix LancetsIndications:T ype 2 diabetes mellitus with foot ulcer, with long-term current use of insulin ([facility]),DM (diabetes mellitus) type II, controlled, with peripheral vascular disorder ([facility]) Use to test blood glucose 4 [...] [place], goal below 130/80,Coronary artery disease involving [place] coronary artery of [place] heart without angina pectoris TAKE ONE TABLET [...] skin once a week. Sundays. Obtaining from [employer]: Power. Active Nitroglycerin 0.3 MG Sublingual Tablet Sublingual (Nitrostat)Indicatio ns:Coronary artery disease of [place] artery of [place] heart with stable angina pectoris (HCC) PLACE [...] artery disease of n ative artery of [place] heart with stable angina pectoris 12/08/2020 Last [...] Per Lipid Taxonomy. 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 Can you please reschedule this? Thank you! documented in this encounter Plan of Treatment Upcoming Encounters Date Type Department Care Team (Late st Contact Info) Description 03/20/2024 6:10 PM EDT Anticoagulation Pharmacy, [place] [address] [place] [address] [facility] [address] [place] [address] 04/11/2024 8:30 AM EDT Home Visit [facility] [address] [place] [address] Rosalind Smith RN [address] [place] [address] 04/14/2024 6:10 PM EDT Pharmacy Pharmacy, [place] [address] [place] [address] [place], [facility] [address] [place] [address] 04/18/2024 10:30 AM EDT Office Visit Podiatr[address] [place] [address] Kenny Archibald, [facility] [address] [place] [address] 05/09/2024 8:20 AM EDT Office Visit Family Practice, [place] [address] [place] [address] Natalia Heller PA-C [address] [place] [address] 06/03/2024 9:45 AM EDT Office Visit Podiatr[address] [place] [phone] Kenny Archibald, [facility] [address] [place] [address] 06/10/2024 8:30 AM EST Imaging Radiology [address] 132 [facility] [place] [address] 07/17/2024 9:00 AM EST Office Visit Cardiology, [facility] [address] [facility] [place] [address] Nesha Denney CRNP 132 [facility] [place] [address] Scheduled Procedures Name Priority Associated Diagnoses Date/Ti [...] D LEVEL ONCE IN A LIFETIME-USE SMARTSET# 40981 Completed 06/18/2020, 07/25/2019, 05/20/2015, Additional history exists [...] this encounter Medical Devices Implanted Type Area Head Holder Device Identifier Shelf Expiration Date Model / Serial / Lot Graft Cervical 6x8 [id number] - [id number] Implanted:Qt y: 2 on 08/21/2008 [place] [facility] [place] - Human Spine Cervical [employer] [id number] / / Screw Spine 14mm 1867-50-014 - [id number] Implanted:Qt y: 2 on 08/21/2008 [place] [facility] N/A: Spine Cervical [employer] DEPUY 1868-50-014 / / Depuy [place] 14 Mm Sd Con Scr Implanted:Qt y: 2 on 08/21/2008 [place] [facility]/A: Spine Cervical [employer]PUY 8-60-014 / / Description:Depuy [place] 14 mm SD con SCR 34 Mm Plate Implanted:Qt y: 1 on 08/21/2008 [place] [facility] N/A: Spine Cervical 802-034 / / Description:34 mm Depuy plat e 14 Mm Variable Rescue Implanted:Qt y: 2 on 08/21/2008 [place] [facility] N/A: Spine Cervical 8-54-014 / / Description:14 mm variable r escue Screw 3.5x14 Mntr Fa [id number] - [id number] Implanted:Qt y: 10 on 07/13/2010 [place] [facility]/A: Spine Cervical JNJ : ETHICON CARDIOVATIONS [id number] / / Devaughn [id number] - [id number] Implanted:Qt y: 1 on 07/13/2010 [place] [facility]A: Spine Cervical JNJ : ETHICON CARDIOVATIONS [id number] / / Screw Inner Mntr [id number] - [id number] Implanted:Qt y: 8 on 07/13/2010 [place] [facility]A: Spine Cervical JNJ : ETH[employer]ON CARDIOVATIONS [id number] / / Nut Outer Xcon [id number] - [id number] Implanted:Qt y: 2 on 07/13/2010 [place] [facility]/A: Spine Cervical JNJ : ETH[employer]ON CARDIOVATIONS [id number] / / Screw Inner Xcon [id number] - [id number] Implanted:Qt y: 2 on 07/13/2010 [place] [facility]/A: Spine Cervical JNJ : ETH[employer]ON CARDIOVATIONS [id number] / / Plate 35mm Xcon [id number] - [id number] Implanted:Qt y: 1 on 07/13/2010 [place] [facility]A: Spine Cervical JNJ : ETH[employer]ON CARDIOVATIONS [id number] / / documented as of this encounter [...] the patient have Health Care Power of Plastics Scientist? No * Full Code Date Activated Date [...] Power of Attor kim? No Care Teams Store Manager Relationship Specialty Start Date End Date Natalia Heller PA-C [address] [facility] [place] [address] PCP - General Physician Amusement Machine Mechanic 01/06/24 documented as of this encounter
--- OUTSIDE RECORDS SUMMARY | 2024-09-05 13:29 | External Medical Summary | Summary of Care ---
Author Name Unknown Organization [facility] Address [address] [facility] [address] Phone [phone] Care Team Providers Care Insulator Technician Name Role Phone Natalia Heller PA-C Primary Care Provider [phone] Reason for Visit * Reason Comments Injury [facility] Encounter Details Date Type Department Care Team (Latest Contact Info) Description 03/10/2024 5:30 PM EDT Convenient Care Visit [address] [address] Della Newman PA-C [address] [facility] [id number] Laceration of lesser toe of right foot without foreign body present or damage to nail, initial encounter* Allergies Active Allergy Reactions Criticality Noted [...] Sodium 5 MG Oral Tablet (Coumadin)Indication s:terminal carman current use of anticoagulant therapy,Deep vein thrombosis (DVT) (HCC) TAKE ONE TABLET TO ONE AND ONE-HALF TABLET BY MOUTH EVERY DAY DIRECTED BY [facility] 135 Tablet 3 09/13/2023 5 Active Accu-Chek Guide In Vitro Strip (Glucose Blood)Indications:Ty pe 2 diabetes mellitus with foot ulcer, with long-term current use of insulin ([facility]),DM (diabetes mellitus) type II, controlled, with peripheral vascular disorder ([facility]) Use to test blood glucose 4 times daily. E11.9 400 Strip 3 10/04/2023 Active Accu-Chek Guide Me w/Device KitIndications:Type 2 diabetes mellitus with foot ulcer, with long-term current use of insulin ([facility]),DM (diabetes mellitus) type II, controlled, with peripheral vascular disorder ([facility]) Use as directed. 10/04/2023 Active Accu-Chek Softclix LancetsIndications:T ype 2 diabetes mellitus with foot ulcer, with long-term current use of insulin ([facility]),DM (diabetes mellitus) type II, controlled, with peripheral vascular disorder ([facility]) Use to test blood glucose 4 times [...] goal below 130/80,Coronary artery disease involving big sandy coronary artery of big sandy heart without angina pectoris TAKE ONE TABLET [...] skin once a week. Sundays. Obtaining from [employer]. 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 Cervical spinal stenosis 08/21/2008 intermediate current use of anticoagulant therapy 0 [...] No 11/19/2023 Does the household have a [facility] source of income? (Household - for [...] Sign Reading Time Taken Comments Blood Pressure 120/80 03/10/2024 5:31 PM EDT Pulse 86 03/10/2024 5:31 PM EDT Temperature 36.3 C (97.3 F) 03/10/2024 5:31 PM ED T Respiratory Rate 12 03/10/2024 5:31 PM EDT Oxygen Saturation 98% 03/10/2024 5:31 PM EDT Inhaled Oxygen Concentration - - [...] this encounter Patient Instructions * Patient Instructions* Della Newman PA-C - 03/10/2024 6:08 PM EDT Return for appt w podiatry tomorrow documented in this encounter Progress Notes * Della Newman PA-C - 03/10/2024 5:55 PM EDT Subjective: Nursing Notes: Rhoda Guo [facility] 03/10/24 1735 Signed Graciela Mobley is a 74 year old female who presents to walk-in clinic today complaining of Chief Complaint Patient presents with Injury Laceration to the right foot Brief history: patient presents today with a laceration to the right foot, happening today sometimearound 3pm. Patient reports having no feeling in her feet due to neuropathy Onset/duration x3 hours ago approx. Tried peroxide, pressure Patient is accompanied by for today's visit. Sx are laceration of the plantar R 2nd toe. Does not know of any injury. Started about 3 hours ago but does not know how it happened. Has been bleeding a bit since occurred. "dowsed" it with a lot of H2O2 no sick contacts at home. 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) Type 2 diabetes mellitus with skin complication, with long-term current use of insulin (HCC) Chronic atrial fibrillation (HCC) 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) History of ankle surgery DM (diabetes mellitus) type II, controlled, with peripheral vascular disorder ([facility]) 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 Fluticasone Propionate 50 MCG/ACT Nasal Suspension (Flonase) Administer 2 Sprays into each nostril in the morning. 16 g 1 Sertraline HCl 50 MG Oral Tablet (Zoloft) Take 1.5 Tablets by mouth at bedtime. 135 Tablet 3 Pregabalin 150 MG Oral Capsule (Lyrica) TAKE [...] Sunday, and Sunday only. 45 Capsule 3 traZODone HCl 50 MG Oral Tablet (Desyrel) TAKE 1 TABLET BY MOUTH EVERY DAY AT BEDTIME 90 Tablet 3 Metoprolol Succinate ER 50 [...] skin once a week. Sundays. Obtaining from [employer]. Nitroglycerin 0.3 MG Sublingual Tablet Sublingual (Nitrostat) PLACE 1 TABLET UNDER THE TONGUE EVERY5 MINUTES UP TO 3 DOSES NEEDED FOR CHEST PAIN. IF NO RELIEF CALL 911 OR GO TO ER 25 Tablet 11 Albuterol Sulfate HFA 108 (90 Base) MCG/ACT Inhalation Aerosol Solution Inhale 2 Puffs by mouth 4 times daily 54 g 3 No current facility-administered medications for this [...] below 100 07/15/2009 Per Lipid Taxonomy. terminal carman (current) use of anticoagulants Major depressive disorder, [...] performed by Buffy Castro MD at OR [facility] AMPUTATION OF TOE Right 05/02/2019 AMPUTATION TOE METATARSOPHALANGEAL JOINT performed by Kenny Archibald DPM at OR [facility] ARTHROPLASTY KNEE TOTAL Right 05/2016 Dr Reynoso BX LYMPH NODE DEEP AXIL Left 04/07/2015 BIOPSY LYMPH NODE DEEP AXILLARY OPEN performed by Buffy Castro MD at OR [facility] CARPAL TUNNEL SURGERY 10/15/2009 NEUROPLASTY MEDIAN NERVE AT CARPAL TUNNEL performed by CHELSI DICKERSON at OR [facility] CARPAL TUNNEL SURGERY 01/07/2010 NEUROPLASTY MEDIAN NERVE AT CARPAL TUNNEL performed by CHELSI DICKERSON at OR [facility] COLONOSCOPY 12/09/2009 adenomatous polyps repeat [...] performed by Anselmo Sung MD at ENDOSCOPY [facility] COLONOSCOPY, DIAGNOSTIC (RECTUM) 03/21/2018 adenomatous polyp, diverticulosis, repeat 2 yrs/COLONOSCOPY FLEXIBLE PROXIMAL DIAGNOSTIC performed by Anselmo Sung MD at ENDOSCOPY [facility] COLONOSCOPY, DIAGNOSTIC (RECTUM) 01/15/2014 COLONOSCOPY FLEXIBLE PROXIMAL DIAGNOSTIC performed by Anselmo Sung MD at ENDOSCOPY [facility] COLONOSCOPY, DIAGNOSTIC (RECTUM) 11/16/2020 Hemorrhoids, diverticulosis sigmoid colon, multi polyps / biopsy benign adenomatous polyps / 1 yearrecall / COLONOSCOPY FLEXIBLE PROXIMAL DIAGNOSTIC performed by Anselmo Sung MD at ENDOSCOPY [facility] COLONOSCOPY, DIAGNOSTIC (RECTUM) 09/18/2023 multiple small and large mouthed diverticula/biopsies show adenomatous polyps/recall 10 years/COLONOSCOPY FLEXIBLE PROXIMAL DIAGNOSTIC performed by Anselmo Sung MD at ENDOSCOPY [facility] COLONOSCOPY/REMOVE LESION 03/16/2009 repeat 6 months CORONARY ANGIOGRAPHY W/LEFT HEART CATH 11/12/2023 CORONARY ANGIOGRAPHY W/LEFT HEART CATH performed by Huey Barrera MD at CARDIAC LABS [facility] DILATION AND CURETTAGE (D&C) 1996 D&C ENDO DECOMPRESS SPINAL CORD W/LAMINOTOMY, CERVICAL 07/13/2010 LAMINECTOMY DECOMPRESSION SPINAL CORD POSTERIOR CERVICAL performed by CHLESI DICKERSON at OR [facility] IDENTIFY SENTINEL NODE, RADIOACTIVE TRACER Left 04/07/2015 INJECTION PROCEDURE FOR IDENTIFICATION SENTINEL NODE performed by Buffy Castro MD at OR [facility] KNEE ARTHROSCOPY, DIAGNOSTIC 12/2012 Left knee - [...] performed by Buffy Castro MD at OR [facility] NECK SPINE FUSION (CERV, BELOW C2) 08/21/2008 ARTHRODESIS SPINE ANTERIOR CERVICAL performed by CHELSI DICKERSON at [facility] NECK SPINE FUSION (CERV, BELOW C2) 07/13/2010 ARTHRODESIS SPINE POSTERIOR CERVICAL performed by CHELSI DICKERSON at OR [facility] RADIATION THERAPY MANAGEMENT Left 07/10/2015 REMOVE NECK SPINE LAMINA, 1-2 SEGS 07/13/2010 LAMINECTOMY POSTERIOR CERVICAL ONE OR TWO VERTEBRAL SEGMENTS performed by CHELSI DICKERSON at OR [facility] SENTINEL LYMPH NODE BIOPSY PERFORMED Left 04/07/2015 SPINE SEG FIX, POST, 3-6 SEG, INSERT 07/13/2010 POSTERIOR SPINE SEGMENTAL INSTRUMENTATION 3 TO 6 PSF performed by CHELSI DICKERSON at [facility] Review of patient's allergies indicates: Allergen Reactions Alendronate Sodium Burning sensation and difficulty breathing Proton Pump Inhibitors Hives nexium Objective: BP 120/80 | Pulse 86 | Temp 36.3 C (97.3 F) (Tympanic) | Resp 12 | LMP 06/06/2001 | SpO2 98% Physical Exam Constitutional: Comments: Pt appears chronically ill. We used a wheel chair to transport her from car to clinic room. Pt is comfortable, talkative and states she is in no pain Cardiovascular: Rate and Rhythm: Normal rate. Pulmonary: Effort: Pulmonary effort is normal. Skin: Findings: Lesion (laceration across the distal plantar crease of the 2nd right toe.) present. Comments: There is a significant cut on the plantar surface of her right 2nd toe. Wrapped in guaze and which is 25% saturated w blood. Neurological: Mental Status: She is alert and oriented to person, place, and time. Psychiatric: Mood and Affect: Mood normal. Behavior: Behavior normal. ASSESSMENT/PLAN: Laceration of lesser toe of right foot without foreign body present or damage to nail, initial encounter (Primary) Cleaned the wound, mild bleeding by the time she was here, treated with dermabond and we were able to stop the bleeding. Had her wait about 15 minutes to makes sure did not cont to bleed. Scheduled an appt with her doctor naturopathic the next day (in about 15 hours) Did not place bandage on the wound but wrapped foot otherwise and discussed management of the skin glue. The appearance of the glue is that it initially mixed with the glue. Pt was stable when leaving [facility] h/o on lac and glue management Over 30 minutes spent with patient exam, counseling, review of previous medical records and with documenting. Return instruction reviewed with pt in detail. Reasons to report to the ED were also reviewed. Voiced understanding Advised to follow up if no improvement in 3-5days. Della Newman PA-C documented in this encounter Nursing Notes * Rhoda Guo CMA - 03/10/2024 5:31 PM EDT Graciela Mobley is a 74 year old female who presents to walk-in clinic today complaining of Chief Complaint Patient presents with Injury Laceration to the right foot Brief history: patient presents today with a laceration to the right foot, happening today sometimearound 3pm. Patient reports having no feeling in her feet due to neuropathy Onset/duration x3 hours ago approx. Tried peroxide, pressure Patient is accompanied by for today's visit. documented in this encounter Miscellaneous Notes * Pt Handout (on AVS) - Della Newman PA-C - 03/10/2024 6:06 PM EDT [id number] Laceration of an Arm or Leg: Skin Glue A laceration is a cut through the skin. You have a laceration that has been closed with skin glue. This is used on cuts that have smooth edges that can easily be brought back together and are not infected. It's best used on straight, clean cuts on areas that don't get a lot of tension. You may need a tetanus shot. This is given if you have no record of a shot, and the object that caused the cut may lead to tetanus. Home care Follow all instructions for taking any medicines prescribed. o Your healthcare provider may prescribe an antibiotic. This is to help prevent infection. Take themedicine every day until it's gone or you are told to stop. You should not have any left over. o Your healthcare provider may prescribe medicines for pain. Follow the healthcare provider?s instructions on how to care for the cut. Don't cover the cut with a bandage. No bandage is needed. Skin glue peels off on its own within 5 to 10 days. Most skin wounds heal within 10 days. Keep the wound clean. You may shower or bathe as usual, but don't soak the wound. Don't use soaps, lotions, or ointments on the wound area. These may dissolve the glue too soon. Don't scrub the wound. After bathing, pat the wound dry with a soft towel. Don't scratch, rub, or pick at the film. Don't place tape directly over the film. Don't put liquids such as peroxide, ointments, or creams on the wound while the skin glue is in place. Many oil-based products can weaken and dissolve the glue. Don't do any activities that may reinjure your wound. Don't do any activities that cause heavy sweating. Protect the wound from sunlight. Sunlight canmake scarring worse. After the wound has healed, apply sunscreen to the area to help minimize scarring. Most skin wounds heal without problems. But an infection sometimes occurs even with proper treatment. Watch for the signs of infection listed below. Follow-up care Follow up with your healthcare provider as advised. When to get medical advice Call your healthcare provider right away if any of these occur: Wound bleeding is not controlled by direct pressure Signs of infection. These include increasing pain in the wound, increasing wound redness or swelling, or pus or bad odor coming from the wound. Fever of 100.4F (38.C) or higher, or as directed by your healthcare provider Wound edges reopen Wound color changes Numbness around the wound Decreased movement around the injured area Last Reviewed Date: 07/06/202219992908-9803 [employer]. All rights reserved. This information is not intended as a substitute for professional medical care. Always follow your healthcare professional's instructions. documented in this encounter Plan of Treatment Upcoming Encounters Date Type Department Care Team (Late st Contact Info) Description 03/11/2024 8:45 AM EDT Office Visit Podiatry [address] [place] [id number] Kenny Archibald, [address] [address] 03/14/2024 10:00 AM EDT Home Visit [facility] [address] [place] [address] Rosalind Smith RN [address] [place] [address] 03/17/2024 6:10 PM EDT Pharmacy Pharmacy, [address] [address] [place], [address] [address] 03/20/2024 6:10 PM EDT Anticoagulation Pharmacy, [address], [place] [address] [facility] [address] [facility] [place] [address] 05/09/2024 8:20 AM EDT Office Visit [facility], [place] [address] [facility] [phone] Natalia Heller PA-C [address] [facility], [place] [address] 06/03/2024 9:45 AM EDT Office Visit Podiatry [address] [place] [phone] Kenny Archibald, [facility] [address] [place] [address] 06/10/2024 8:30 AM EST Imaging Radiology [address] [place] [address] Scheduled Procedures Name Priority Associated Diagnoses Date/Ti [...] D LEVEL ONCE IN A LIFETIME-USE SMARTSET# 04179 Completed 06/18/2020, 07/25/2019, 05/20/2015, Additional history exists [...] this encounter Medical Devices Implanted Type Area Sales Center Manager Device Identifier Shelf Expiration Date Model / Serial / Lot Graft Cervical 6x8 [id number] - [id number] Implanted:Qt y: 2 on 08/21/2008 at OR [facility] Tissue - Human Spine Cervical [employer] [id number] / / Screw Spine 14mm [id number] - [id number] Implanted:Qt y: 2 on 08/21/2008 at OR [facility] N/A: Spine Cervical [employer] DEPUY 50-014 / / Depuy [employer] 14 Mm S[address] Con Scr Implanted:Qt y: [...] variable r escue Screw 3.5x14 Mntr Fa [id number] - [id number] Implanted:Qt y: 10 on 07/13/2010 at OR [facility] N/A: Spine Cervical JNJ : [employer] [id number] / / Devaughn 3.3w096cu [id number] - [id number] Implanted:Qt y: 1 on 07/13/2010 at OR [facility] N/A: Spine Cervical JNJ : [employer] [id number] / / Screw Inner Mntr [id number] - [id number] Implanted:Qt y: 8 on 07/13/2010 at OR [facility] N/A: Spine Cervical JNJ : [employer] [id number] / / Nut Outer Xcon [id number] - [id number] Implanted:Qt y: 2 on 07/13/2010 at OR [facility] N/A: Spine Cervical JNJ : [employer] [id number] / / Screw Inner Xcon [id number] - [id number] Implanted:Qt y: 2 on 07/13/2010 at OR [facility] N/A: Spine Cervical JNJ : [employer] [id number] / / Plate 35mm Xcon [id number] - [id number] Implanted:Qt y: 1 on 07/13/2010 at OR [facility] N/A: Spine Cervical JNMaddy : [employer] [id number] / / documented as of this encounter Visit Diagnoses Diagnosis Laceration of lesser toe of right foot without foreign body present or damage to nail, initial encounter- Primary documented in this encounter Advance Directives [...] the patient have Health Care Power of Nickel Operator? No * Full Code Date Activated [...] Power of Attor kim? No Care Teams Insulator Technician Relationship Specialty Start Date End Date Natalia Heller PA-C [address] [place] [address] PCP - General Physician Captain Cannery Tender 01/06/24 documented as of this encounter
--- OUTSIDE RECORDS SUMMARY | 2024-09-05 13:29 | External Medical Summary | Summary of Care ---
Author Name Unknown Organization [facility] Address [address] [facility] [place] [address] Phone [phone] Care Team Providers Care Tubing Supervisor Name Role Phone Natalia Heller PA-C Primary Care Provider [phone] Reason for Visit * Reason Comments New Problem R toe Encounter Details Date Type Department Care Team ([facility] st Contact Info) Description 03/11/2024 8:45 AM EDT Office Visit Podiatry [address] [place] [address] Kenny Archibald, [facility] [address] [place] [address] Laceration of second toe* Allergies Active Allergy Reactions Criticality Noted Date Comments Alendronate Sodium 06/24/2012 Burning sensation and difficulty breathing Proton Pump Inhibitors Hives 02/20/2002 nexium documented as of this encounter (statuses as of 03/11/2024) Medications Medication Sig Dispensed Refills Start Date [...] Warfarin Sodium 5 MG Oral Tablet (Coumadin)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 10/04/2023 Active [...] below 130/80,Coronary artery disease involving [place] coronary artery of [place] heart without angina pectoris TAKE ONE TABLET [...] skin once a week. Sundays. Obtaining from [facility] [employer]. Active Nitroglycerin 0.3 MG Sublingual Tablet Sublingual (Nitrostat)Indicatio ns:Coronary artery disease of [place] artery of [place] heart with stable angina pectoris (HCC) PLACE [...] as of this encounter (statuses as of 03/11/2024) Active Problems Problem Noted Date Diagnosed Date [...] of n ative artery of [place] heart with stable angina pectoris 12/08/2020 Last [...] as of this encounter (statuses as of 03/11/2024) Resolved Problems Problem Noted Date Diagnosed Date [...] as of this encounter (statuses as of 03/11/2024) Immunizations Name Administration Dates Next Due COVID-19 [...] Progress Notes * Kenny Archibald DPM - 03/11/2024 8:33 AM EDT Subjective: Patient presents in office today for laceration of right 2nd toe. Patient does not recall any injury but it started bleeding yesterday and wouldn't stop so she was seen at [facility] and laceration was treated with dermabond. HISTORY Past Medical History: Diagnosis Date Asthma [...] LDL below 100 07/15/2009 Per [employer]. 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 Major depressive disorder, [...] performed by Buffy Castro MD at OR [facility] [address] AMPUTATION OF TOE Right 05/02/2019 AMPUTATION TOE METATARSOPHALANGEAL JOINT performed by Kenny Archibald DPM at OR [facility] ARTHROPLASTY KNEE TOTAL Right 05/2016 Dr Reynoso BX LYMPH NODE DEEP AXIL Left 04/07/2015 BIOPSY LYMPH NODE DEEP AXILLARY OPEN performed by Buffy Castro MD at OR [facility] [address] CARPAL TUNNEL SURGERY 10/15/2009 NEUROPLASTY MEDIAN NERVE AT CARPAL TUNNEL performed by CHELSI DICKERSON at [facility] CARPAL TUNNEL SURGERY 01/07/2010 NEUROPLASTY MEDIAN NERVE AT CARPAL TUNNEL performed by CHELSI DICKERSON at [facility] COLONOSCOPY 12/09/2009 adenomatous polyps repeat 6 [...] performed by Anselmo Sung MD at ENDOSCOPY [facility] [address] COLONOSCOPY, DIAGNOSTIC (RECTUM) 03/21/2018 adenomatous polyp, diverticulosis, repeat 2 yrs/COLONOSCOPY FLEXIBLE PROXIMAL DIAGNOSTIC performed by Anselmo Sung MD at ENDOSCOPY [facility] [address] COLONOSCOPY, DIAGNOSTIC (RECTUM) 01/15/2014 COLONOSCOPY FLEXIBLE PROXIMAL DIAGNOSTIC performed by Anselmo Sung MD at ENDOSCOPY [facility] [address] COLONOSCOPY, DIAGNOSTIC (RECTUM) 11/16/2020 Hemorrhoids, diverticulosis sigmoid colon, multi polyps / biopsy benign adenomatous polyps / 1 yearrecall / COLONOSCOPY FLEXIBLE PROXIMAL DIAGNOSTIC performed by Anselmo Sung MD at ENDOSCOPY [facility] [address] COLONOSCOPY, DIAGNOSTIC (RECTUM) 09/18/2023 multiple small and large mouthed diverticula/biopsies show adenomatous polyps/recall 10 years/COLONOSCOPY FLEXIBLE PROXIMAL DIAGNOSTIC performed by Anselmo Sung MD at ENDOSCOPY [facility] COLONOSCOPY/REMOVE LESION 03/16/2009 repeat 6 months CORONARY ANGIOGRAPHY W/LEFT HEART CATH 11/12/2023 CORONARY ANGIOGRAPHY W/LEFT HEART CATH performed by Huey Barrera MD at CARDIAC LABS [facility] DILATION AND CURETTAGE (D&C) 1996 D&C ENDO DECOMPRESS SPINAL CORD W/LAMINOTOMY, CERVICAL 07/13/2010 LAMINECTOMY DECOMPRESSION SPINAL CORD POSTERIOR CERVICAL performed by CHELSI DICKERSON at [facility] IDENTIFY SENTINEL NODE, RADIOACTIVE TRACER Left [...] performed by Buffy Castro MD at OR [facility] [address] NECK SPINE FUSION (CERV, BELOW C2) 08/21/2008 ARTHRODESIS SPINE ANTERIOR CERVICAL performed by CHELSI DICKERSON at [facility] NECK SPINE FUSION (CERV, BELOW C2) 07/13/2010 ARTHRODESIS SPINE POSTERIOR CERVICAL performed by CHELSI DICKERSON at OR [facility] RADIATION THERAPY MANAGEMENT Left 07/10/2015 REMOVE NECK SPINE LAMINA, 1-2 SEGS 07/13/2010 LAMINECTOMY POSTERIOR CERVICAL ONE OR TWO VERTEBRAL SEGMENTS performed by CHELSI DICKERSON at [facility] SENTINEL LYMPH NODE BIOPSY PERFORMED Left 04/07/2015 SPINE SEG FIX, POST, 3-6 SEG, INSERT 07/13/2010 POSTERIOR SPINE SEGMENTAL INSTRUMENTATION 3 TO 6 PSF performed by CHELSI DICKERSON at OR [facility] Family History Problem Relation Name Age of Onset Diabetes Mother Breast Cancer Mother 76 Diabetes Father Heart Disorder Father [place] age 34 - age 52 Breast Cancer Grandmother (Maternal) Cancer Sister unknown type Diabetes Brother Diabetes Brother Social History Socioeconomic History Marital status: Spouse name: gaetano Number of children: 2 Years of education: Not on file Highest education level: Not on file Occupational History Comment: retired from [employer] Tobacco Use Smoking status: Former Current packs/day: 0.00 Average packs/day: 2.0 packs/day for 36.0 years (72.0 ttl pk-yrs) Types: Cigarettes Start date: 04/19/1979 Quit date: 04/19/2015 Years since quittin.9 Smokeless tobacco: Never Vaping Use Vaping status: [...] Stability Do you currently live in a long-term or have no steady place to sleep [...] skin. 310 units in pump. Getting from [employer] PAP Aspirin 81 MG Oral Tablet Delayed [...] skin once a week. Sundays. Obtaining from [employer]. Nitroglycerin 0.3 MG Sublingual Tablet Sublingual (Nitrostat) [...] Objective: Vascular examination: DP 2/4 bilateral PT 1/4right 0.4 left SPVFT 3sec no digital hair, cold feet Dermatological examination: Laceration PIPJ sulcus plantar right 2nd toe. No active bleeding, no erythema, no signs of infection Orthopedic examination: previous partial 1st ray amputation Neurological examination: Epicritic sensation intact Assessment: The encounter diagnosis was Laceration of second toe. Plan: Dressed toe with Bacitracin/DSD Will recheck in 1 week documented in this encounter Nursing Notes * Reina Weaver LPN - 03/11/2024 8:14 AM EDT Pt presents for new concern, R 2nd toe. Noticed open area yesterday, 'woldn't stop bleeding', went to [facility], Dermabond applied. Not painful, states has not feeling in her foot. documented in this encounter Plan of Treatment Upcoming Encounters Date Type Department Care Team (Late st Contact Info) Description 03/14/2024 10:00 AM EDT Home Visit [facility] [address] [place] [address] Rosalind Smith RN [address] [place] [address] 03/17/2024 6:10 PM EDT Pharmacy Pharmacy, [place] [address] [place] [facility] [place] [address] [facility] [address] [place] [facility] [place] [address] 03/20/2024 6:10 PM EDT Anticoagulation Pharmacy, [place] [address] [place] [facility] [address] [facility] [address] [place] [facility] [place] [address] 03/21/2024 10:15 AM EDT Office Visit [address] [place] [id number] Kenny Archibald, JULIEN [address] [place] [address] 05/09/2024 8:20 AM EDT Office Visit Family [facility], [place] [address] [place] [address] Natalia Heller PA-C [address] [place] [address] 06/03/2024 9:45 AM EDT Office Visit [address] [place] [id number] Kenny Archibald, JASMINE [address] [place] [address] 06/10/2024 8:30 AM EST Imaging Radiology [address], [address] [place] [address] Scheduled Procedures Name Priority Associated Diagnoses Date/Ti [...] encounter Medical Devices Implanted Type Area Manager Relationship Device Identifier Shelf Expiration Date Model / Serial / Lot Graft Cervical 6x8 [id number] - [id number] Implanted:Qt y: 2 on 08/21/2008 at OR [facility] Tissue - Human Spine Cervical [employer] [id number] / / Screw Spine 14mm 8-50-014 - [id number] Implanted:Qt y: 2 on 08/21/2008 at OR [facility] N/A: Spine Cervical [employer] 1868-50-014 / / Depuy [place] 14 Mm Sd Con Scr Implanted:Qt y: 2 on 08/21/2008 at OR [facility] N/A: Spine Cervical [employer] [id number] / / Description:Depuy [place] 14 mm SD con SCR 34 Mm Plate Implanted:Qt y: 1 on 08/21/2008 at OR [facility] N/A: Spine Cervical 802-034 / / Description:34 mm Depuy plat e 14 Mm Variable Rescue Implanted:Qt y: 2 on 08/21/2008 at OR [facility] N/A: Spine Cervical 8-54-014 / / Description:14 mm variable r escue Screw 3.5x14 Mntr Fa [id number] - [id number] Implanted:Qt y: 10 on 07/13/2010 at OR [facility] N/A: Spine Cervical JN[place] : [employer] [id number] / / [place]aughn 3.0v203qs [id number] - [id number] Implanted:Qt y: 1 on 07/13/2010 at OR [facility] N/A: Spine Cervical JN[place] : [employer] [id number] / / Screw Inner Mntr [id number] - [id number] Implanted:Qt y: 8 on 07/13/2010 at OR [facility] N/A: Spine Cervical JNJ : [employer] [id number] / / Nut Outer Xcon [id number] - [id number] Implanted:Qt y: 2 on 07/13/2010 at OR [facility] N/A: Spine Cervical JN[place] : [employer] [id number] / / Screw Inner Xcon [id number] - [id number] Implanted:Qt y: 2 on 07/13/2010 at OR [facility] N/A: Spine Cervical JNJ : [employer] [id number] / / Plate 35mm Xcon [id number] - [id number] Implanted:Qt y: 1 on 07/13/2010 at OR [facility] N/A: Spine Cervical JNJ : [employer] [id number] / / documented as of this encounter Visit Diagnoses Diagnosis Laceration of second toe- Primary documented in this encounter Advance Directives [...] the patient have Health Care Power of Cold Saw Operator? No * Full Code Date Activated [...] Power of Attor kim? No Care Teams Tubing Supervisor Relationship Specialty Start Date End Date Natalia Heller PA-C [address] [facility] [place] [address] PCP - General Physician Senior Nurse Manager 01/06/24 documented as of this encounter
[2024-09-05] MEDS ORDERED: GLUCAGON FOR INJ 1 MG VIAL SQ PRN (13:30)
[2024-09-05] MEDS ORDERED: GLUCOSE 10 TAB/TUBE PO PRN (13:30)
[2024-09-05] MEDS ORDERED: GLUCOSE 40% GEL 15 GM TUBE PO PRN (13:30)
[2024-09-05] MEDS ORDERED: DEXTROSE 50% 50 ML SYRINGE IV PRN (13:30)
[2024-09-05] MEDS ORDERED: CARBOHYDRATES FOR HYPOGLYCEMIA PO PRN (13:30)
[2024-09-05] MEDS: INSULIN REGULAR 250 UNITS in SODIUM CHLORIDE 0.9% 247.5 ML IV SCH (13:47)
[2024-09-05] MEDS: METOPROLOL SUCC 25MG EXT REL TAB PO ONE (13:48)
[2024-09-05] MEDS: ASPIRIN 81 MG ECTAB PO ONE (13:55)
[2024-09-05] MEDS ORDERED: POLYETHYLENE (MIRALAX) 17 GM PACK PO PRN (14:37)
[2024-09-05] MEDS ORDERED: ENOXAPARIN 1 MG/KG SQ SCH (14:37)
--- NOTE | 2024-09-05 14:42 | Electrocardiogram Report ---
Test Reason : Blood Pressure : */* mmHG Vent. Rate : 108 BPM Atrial Rate : 108 BPM P-R Int : 124 ms QRS Dur : 98 ms QT Int : 392 ms P-R-T Axes : 49 34 96 degrees QTcB Int : 525 ms Sinus tachycardia with Premature atrial complexes Prolonged QT Abnormal ECG When compared with ECG of 14-Nov-2023 23:45, Significant changes have occurred Confirmed by Gunner Stephens ([id number]) on 09/05/2024 2:41:48 PM Referred By: Confirmed By: Gunner Stephens
[2024-09-05] MEDS: SODIUM CHLOR 0.45% + 20MEQ KCL 20 MEQ/1,000 ML BAG IV SCH (15:00)
--- NOTE | 2024-09-05 15:29 | Pharmacy Report ---
Pharmacy Glycemic Short Note 2 - Date of Service September 05, 2024 - Glycemic Short BSG Results (Last 24 hours): 09/05/24 09/05/24 09/05/24 09:39 11:25 11:59 Glucose 555 H* POC Glucose 565 H* 518 H* 09/05/24 09/05/24 09/05/24 13:46 14:13 15:21 Glucose POC Glucose 532 H* 537 H* 550 H* OUTPATIENT ANTIDIABETIC REGIMEN: * metformin 1000mg QAM * Ozempic -- on HOLD * Novolog Medtronic 780G insulin pump (per 10/24/23 [facility] visit records) * Average ~200 units of basal daily * Total daily dose ~290-350 units daily * Sensitivity factor: 10 * Carbohydrate ratio: 5 (using preset boluses) * Preset boluses: 25 units with breakfast, 45 units with lunch, and 40 units with dinner * Toujeo 60 units BID PRN pump failure * HbA1c 10.4% (11/15/23) -- updated A1c pending ASSESSMENT: * Ms Mobley is a 74yo diabetic F admitted with COPD exac, RSV, early DKA (pH 7.29, AG 17, CO2 20). * Pt reports that she has not used her insulin pump for the past 4 days d/t inability to get it refilled successfully. * Pt initiated on IV insulin infusion in the ED. Will continue to utilize IV insulin until labs have resolved and pt is able to transition to SQ insulin. May also opt to continue IV insulin infusion until pump may be resumed, if relatively easily managed on insulin gtt. * Pt received 125mg IV SoluMedrol in the ED this afternoon. PLAN FOR INPATIENT GLYCEMIC CONTROL: * Hold outpatient oral diabetes medications * IV insulin infusion per protocol
[2024-09-05 15:45] LABS: BUN Creatinine Ratio 23.1 (10-20); Calcium 7.9 mg/dl (8.6-10.3); Creatinine Clr Calc Pharmacy 52.9 ml/min; Phosphorus 1.8 mg/dl (2.5-4.9); Potassium 4.1 mmol/L (3.5-5.1)
--- NOTE | 2024-09-05 16:52 | Emergency Department Note ---
ED Provider Note History of Present Illness Chief Complaint: Shortness of Breath/Dyspnea Time Seen by Provider: 09/05/24 09:55 Source: patient Mode of arrival: EMS Limitations: no limitations Patient is a 74-year-old female who presents to the emergency department via EMS with complaints of shortness of breath and difficulty breathing. Patient states that she has been feeling sick for the last 4 days and notes that her stepson has the flu so she was assuming that she also has the flu but today she was feeling much worse. Patient had a DuoNeb and Zofran in the ambulance on the way to the hospital. Patient notes that the Zofran has stopped her nausea and denies any at this time. Patient notes that she has had intermittent nausea and intermittent abdominal pain. Patient notes that she has a history of CHF and COPD. Patient denies any chest pain at this time. Home Medications Medication Instructions Recorded Confirmed Type albuterol sulfate 90 mcg/actuation 2 puff inhalation QID PRN 01/12/20 09/05/24 History aerosol inhaler (Ventolin HFA) Shortness Of Breath Or Wheezing fluticasone propionate 50 2 spray intranasal QAM 01/12/20 09/05/24 History mcg/actuation nasal spray,suspension (Flonase Allergy Relief) metformin 1,000 mg tablet 1,000 mg PO BIDM 01/12/20 09/05/24 History nitroglycerin 0.3 mg sublingual 0.3 mg sublingual .PRN/UD PRN 01/12/20 09/05/24 History tablet (Nitrostat) Chest Pain pregabalin 150 mg capsule 150 mg PO BID 01/12/20 09/05/24 History sertraline 50 mg tablet 75 mg PO HS 01/12/20 09/05/24 History trazodone 50 mg tablet 50 mg PO HS 01/12/20 09/05/24 History warfarin 5 mg tablet 5 mg PO UD 01/12/20 09/05/24 History cholecalciferol (vitamin D3) 25 1,000 unit PO QAM #30 caps 01/19/20 09/05/24 Rx mcg (1,000 unit) capsule multivitamin (Daily-Moiz tablet) 1 tab PO QAM #30 tabs 01/19/20 09/05/24 Rx metoprolol succinate 50 mg 50 mg PO BID #60 tabs 01/23/20 09/05/24 Rx tablet,extended release 24 hr cyanocobalamin (vitamin B-12) 1,000 mcg sublingual DAILY 09/21/22 09/05/24 History 1,000 mcg sublingual tablet aspirin 81 mg tablet,delayed 81 mg PO QAM 11/15/23 09/05/24 History release insulin aspart U-100 100 unit/mL 0 sliding scale dose continuous 11/15/23 09/05/24 History subcutaneous solution (Novolog subcutaneous infusion .WAITING ON U-100 Insulin aspart) NEW PUMP isosorbide mononitrate 60 mg 60 mg PO QAM 11/15/23 09/05/24 History tablet,extended release 24 hr rosuvastatin 20 mg tablet 20 mg PO QAM 11/15/23 09/05/24 History furosemide 20 mg tablet 20 mg PO 3XWK #30 tabs 11/17/23 09/05/24 Rx potassium chloride 20 mEq 20 meq PO 3XWK #30 tabs 11/17/23 09/05/24 Rx tablet,extended release amoxicillin 875 mg-potassium 1 tab PO BID 09/05/24 09/05/24 History clavulanate 125 mg tablet famotidine 40 mg tablet 40 mg PO DAILY 09/05/24 09/05/24 History Allergies Allergy/AdvReac Type Severity Reaction Status Date / Time alendronate sodium Allergy Severe DIFFICULTY Verified 09/21/22 22:31 BREATHING/BURNING SENSATION esomeprazole Allergy Intermediate Hives Verified 09/21/22 22:31 Past Med/Surg History Problem List (Updated 09/05/24 @ 17:02 by AUDELIA Carballo) DKA, type 2 (Acute) RSV (acute bronchiolitis due to respiratory syncytial virus) (Acute) COPD exacerbation COVID (Acute) Pseudohyponatremia Hyperkalemia ASCVD (arteriosclerotic cardiovascular disease) Hypertensive urgency Respiratory distress Flash pulmonary edema (Acute) Hypertensive emergency (Acute) Hypotension Hypotension Hypoxia, sleep related UTI due to Klebsiella species HTN (hypertension) Acute exacerbation of congestive heart failure Diastolic heart failure Ankle fracture, bimalleolar, closed Discharge planning issues DVT prophylaxis Anemia Chronic anticoagulation (Chronic) Dyslipidemia (Chronic) Asthma (Chronic) COPD (chronic obstructive pulmonary disease) (Chronic) Brittany-prosthetic fracture around prosthetic knee Congestive heart failure (Chronic) diastolic; LVEF by echo 01/13/20 70% Acute diastolic (congestive) heart failure Hypoxia (Acute) Osteoporosis Diabetes mellitus type 2, uncontrolled Coronary artery disease Atrial fibrillation (Acute) Microvascular angina DM type 2 (diabetes mellitus, type 2) (Chronic) Medical History Benign neoplasm of colon Osteoarthritis History of DVT (deep vein thrombosis) "RLE x 2 in " 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) "Abnormal left breast mammogram 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 Estrogen receptor positive and progesterone receptor positive Status post lumpectomy with sentinel lymph node biopsy stage [id number] 04/07/2015 Status post completion of radiation therapy 07/21/2015 received 6640 cGy" On 07/25/15 17:54 Jayleen Bates wrote "Abnormal left breast mammogram 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 Estrogen receptor positive and progesterone receptor positive Status post lumpectomy with sentinel lymph node biopsy stage [id number] 04/07/2015 Status post completion of radiation therapy 07/21/2015 received 6640 cGy" On 07/25/15 17:49 Jayleen Bates wrote "Abnormal left breast mammogram 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 Estrogen receptor positive and progesterone receptor positive Status post lumpectomy with sentinel lymph node biopsy stage [id number] 04/07/2015" Surgical History H/O partial mastectomy "left breast 04/2015 with lymph node biopsy" H/O arthroscopic knee surgery H/O colonoscopy History of carpal tunnel surgery S/P cervical spinal fusion S/P dilation and curettage H/O vein stripping Family History Other Breast cancer Diabetes Heart disease Social History Smoking Status: Former smoker Tobacco Type: Cigarettes Second Hand Exposure: No; Do You Dip or Chew Tobacco: No; Hx Alcohol Use: No Hx Substance Use: No Preferred Language: Nepali Communication Ability: Effective 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 Beliefs That Will Affect Care: None Current Living Situation: Spouse Current Living Situation Comment: lives at home with and step-son Other Information That Helps Us Care for You: No Feels Safe at Home: Yes Safety Concerns: Feels Safe At This Time Assistive Devices: Cane and Walker Physical Exam Vital Signs Vital Signs - 24 hr 09/05/24 09:37 09/05/24 09:37 09/05/24 09:37 Temperature 37.0 C Temperature Source Oral Pulse Rate 111 H Pulse Rate [Apical] Pulse Rate from SpO2 Sensor Respiratory Rate 24 Respiratory Effort / Characteristics Non-Labored Spontaneous Respiratory Depth Normal Respiratory Pattern Regular Blood Pressure 117/59 L Blood Pressure Mean 78 Blood Pressure Position Lying Pulse Oximetry 94 Oxygen Delivery Method Room Air Room Air Room Air Sepsis Recent Fever Within 48 Hours No Sepsis New/Unexplained Change in Mental Status No Sepsis Action Taken by Nursing No Action Required 09/05/24 09:42 09/05/24 09:55 09/05/24 09:56 Temperature Temperature Source Pulse Rate 110 H 113 H Pulse Rate [Apical] Pulse Rate from SpO2 Sensor 109 H Respiratory Rate 35 H Respiratory Effort / Characteristics Respiratory Depth Respiratory Pattern Blood Pressure 117/59 L Blood Pressure Mean 78 Blood Pressure Position Pulse Oximetry 93 Oxygen Delivery Method Room Air Sepsis Recent Fever Within 48 Hours Sepsis New/Unexplained Change in Mental Status Sepsis Action Taken by Nursing 09/05/24 10:30 09/05/24 11:00 09/05/24 11:30 Temperature Temperature Source Pulse Rate 104 H 104 H 114 H Pulse Rate [Apical] Pulse Rate from SpO2 Sensor 106 H 107 H 113 H Respiratory Rate 29 H 17 31 H Respiratory Effort / Characteristics Respiratory Depth Respiratory Pattern Blood Pressure 114/69 108/56 L 99/51 L Blood Pressure Mean 82 71 67 Blood Pressure Position Pulse Oximetry 93 100 94 Oxygen Delivery Method Room Air Room Air Room Air Sepsis Recent Fever Within 48 Hours Sepsis New/Unexplained Change in Mental Status Sepsis Action Taken by Nursing 09/05/24 12:00 09/05/24 12:17 09/05/24 12:30 Temperature Temperature Source Pulse Rate 110 H 108 H Pulse Rate [Apical] 106 H Pulse Rate from SpO2 Sensor 110 H 108 H Respiratory Rate 31 H 24 24 Respiratory Effort / Characteristics Non-Labored Spontaneous Respiratory Depth Normal Respiratory Pattern Blood Pressure 118/68 116/62 Blood Pressure Mean 84 80 Blood Pressure Position Pulse Oximetry 97 94 92 Oxygen Delivery Method Room Air Room Air Room Air Sepsis Recent Fever Within 48 Hours Sepsis New/Unexplained Change in Mental Status Sepsis Action Taken by Nursing 09/05/24 13:31 09/05/24 13:56 Temperature Temperature Source Pulse Rate 107 H 112 H Pulse Rate [Apical] Pulse Rate from SpO2 Sensor Respiratory Rate Respiratory Effort / Characteristics Respiratory Depth Respiratory Pattern Blood Pressure 114/59 L Blood Pressure Mean 65 Blood Pressure Position Pulse Oximetry 91 94 Oxygen Delivery Method Room Air Room Air Sepsis Recent Fever Within 48 Hours Sepsis New/Unexplained Change in Mental Status Sepsis Action Taken by Nursing VITAL SIGNS - Vital signs and nursing notes were reviewed. GENERAL -74-year-old female appearing their stated age, who is in no acute distress. Communicates well with provider and answers questions appropriately. Patient arrives to the department via EMS. HEAD - Normocephalic, Atraumatic. EYES - PERRL with EOMI bilaterally. Sclera anicteric. Conjunctiva pink and moist with no injection noted. EARS - No deformities of external structures noted on gross examination bilaterally. NECK - Neck with FROM. Supple to palpation. No lymphadenopathy noted. LUNGS - Chest wall symmetric without accessory muscle use, intercostals retractions, or central cyanosis. Patient's lung sounds are clear but diminished in the bilateral lower lobes, with some wheezing noted in the upper lobes. No rales, or rhonchi appreciated. CARDIAC - RRR with S1/S2. No murmur, rubs, or gallops appreciated. EXTREMITIES - No edema present. +5/5 strength noted in UE/LE bilaterally. NEUROLOGIC -Sensory intact to light touch throughout. PSYCH - A&Ox3 and cooperates fully with examiner. Pt is very pleasant and interacts well with examiner Course Administered Medications Insulin Human Regular 250 (units/ Sodium Chloride) 250 mls @ 22.5 mls/hr IV .Q11H7M [facility]; Protocol Stop: 10/05/24 13:14 Last Titration: 09/05/24 16:43 Dose: 22.5 units/hr, 22.5 mls/hr Documented By: DANIELLE Co-signed By: JERONIMO Titration: 09/05/24 15:37 Dose: 16.1 units/hr, 16.1 mls/hr Documented By: DANIELLE Co-signed By: JERONIMO Titration: 09/05/24 14:41 Dose: 11.5 units/hr, 11.5 mls/hr Documented By: DANIELLE Co-signed By: JERONIMO Admin: 09/05/24 13:47 Dose: 9.6 units/hr, 9.6 mls/hr Documented By: RODNEY Co-signed By: NEYMAR Potassium Chloride/Sodium Chloride (1/2 Nss + 20meq Kcl 1000ml) 20 meq in 1,000 mls @ 100 mls/hr IV .Q10H RAQUEL Stop: 09/06/24 23:14 Last Admin: 09/05/24 15:00 Dose: 100 mls/hr Documented By: DANIELLE Discontinued Medications Albuterol (Albut/Ipratrop 3mg/0.5mg Neb 3 Ml Vial) 3 ml NEB NOW STA; Protocol Stop: 09/05/24 10:25 Last Admin: 09/05/24 10:58 Dose: 3 ml Documented By: ORDNEY Aspirin (Aspirin 81 Mg Ectab) 81 mg PO ONE ONE Stop: 09/05/24 13:44 Last Admin: 09/05/24 13:55 Dose: 81 mg Documented By: RODNEY Sodium Chloride (Nss) 500 mls @ 500 mls/hr IV .Q1H ONE Stop: 09/05/24 11:23 Last Infusion: 09/05/24 12:05 Dose: Infused Documented By: Admin: 09/05/24 11:02 Dose: 500 mls/hr Documented By: RODNEY Sodium Chloride (Nss) 1,000 mls @ 999 mls/hr IV .Q1H1M ONE Stop: 09/05/24 11:31 Last Infusion: 09/05/24 12:05 Dose: Infused Documented By: Admin: 09/05/24 10:57 Dose: 999 mls/hr Documented By: RODNEY Insulin Human Regular (Novolin-R Insulin Per Unit Charge) 10 units IV NOW STA Stop: 09/05/24 10:33 Last Admin: 09/05/24 11:02 Dose: 10 units Documented By: RODNEY Co-signed By: NEYMAR Methylprednisolone (Methylprednisolone 125 Mg/2 Ml Vial) 125 mg IV NOW STA Stop: 09/05/24 10:25 Last Admin: 09/05/24 10:55 Dose: 125 mg Documented By: RODNEY Metoprolol Succinate (Metoprolol Succ 25mg Ext Rel Tab) 25 mg PO ONE ONE Stop: 09/05/24 13:17 Last Admin: 09/05/24 13:48 Dose: 25 mg Documented By: RODNEY Medical Decision Making Differential Diagnosis Influenza, COVID, RSV, pneumonia, CHF exacerbation, COPD exacerbation, among others. Medical Records Attestation: I reviewed the patient's medical records. Home Medications was personally reviewed by me Laboratory Data Attestation: I reviewed the patient's lab results. 09/05/24 09:39 09/05/24 15:09 Lab Results 09/05/24 09/05/24 09/05/24 Range/Units 09:39 10:52 11:25 WBC 14.53 H (4.8-10.8) K/ul RBC 4.49 (4.20-5.40) M/uL Hgb 13.0 (12.0-16.0) g/dl Hct 40.8 (37.0-47.0) % MCV 90.9 (80.0-100.0) fL MCH 29.0 (25.0-34.0) pg MCHC 31.9 L (32.0-36.0) g/dL RDW Std Deviation 50.0 H (36.4-46.3) fL RDW Coeff of Katrin 15.2 H (11.5-14.5) % Plt Count 139 (130-400) K/uL MPV 11.7 (9.4-12.4) fL Immature Gran % (Auto) 0.6 % Neut % (Auto) 82.3 % Lymph % (Auto) 10.8 % [facility] % (Auto) 5.8 % Eos % (Auto) 0.1 % Baso % (Auto) 0.4 % Neut # (Auto) 11.96 H (1.40-6.50) K/uL Lymph # (Auto) 1.57 (1.20-3.40) K/uL [facility] # (Auto) 0.84 H (0.11-0.59) K/uL Eos # (Auto) 0.01 (0.00-0.50) K/uL Baso # (Auto) 0.06 (0.00-0.20) K/uL Immature Gran # (Auto) 0.09 (0.01-0.20) K/uL PT 13.6 H (9.0-12.0) Seconds INR 1.3 H (0.9-1.1) VBG pH 7.29 L (7.36-7.41) VBG pCO2 36 L (38-50) mmHg VBG pO2 34 mmHg VBG HCO3 17 mmol/L VBG O2 Saturation < 60.0 % VBG Base Excess -8.5 mEq/L Sodium 135 L (136-145) mmol/L Potassium 4.4 (3.5-5.1) mmol/L Chloride 98 (98-107) mmol/L Carbon Dioxide 20 L (21-32) mmol/L Anion Gap 17 H (3-11) BUN 18 (6-23) mg/dl Creatinine 1.04 (0.6-1.2) mg/dl Est Cr Clr Drug Dosing 53.6 ml/min eGFR 56.05 BUN/Creatinine Ratio 17.3 (10-20) Glucose 555 H* (70-99(Fasting)) mg/dl POC Glucose 565 H* (70-99) mg/dl Calcium 8.9 (8.6-10.3) mg/dl Magnesium 2.0 (1.7-2.4) mg/dl Total Bilirubin 1.2 H (0.2-1.0) mg/dl AST 20 (13-39) U/L ALT 19 (7-52) U/L Alkaline Phosphatase 111 H (34-104) U/L Troponin I High Sens 31.8 H (0-14) pg/ml B-Natriuretic Peptide 647 H (0-100) pg/ml Total Protein 7.3 (6.0-8.3) gm/dl Albumin 3.6 (3.4-5.0) gm/dl Globulin 3.7 (2.5-4.0) gm/dl Albumin/Globulin Ratio 1.0 (0.9-2) Adenovirus (PCR) Not Detected (NotDetected) B. pertussis DNA (PCR) Not Detected (NotDetected) B.parapertussis DNA PCR Not Detected (NotDetected) C. pneumoniae DNA (PCR) Not Detected (NotDetected) Coronavirus OC43 (PCR) Not Detected (NotDetected) Coronavirus HKU1 (PCR) Not Detected (NotDetected) Coronavirus 229E (PCR) Not Detected (NotDetected) SARS-CoV-2 (PCR) Not Detected (NotDetected) Coronavirus NL63 (PCR) Not Detected (NotDetected) Human Metapneumovir PCR Not Detected (NotDetected) Influenza Type A (PCR) Not Detected (NotDetected) Influenza Type B (PCR) Not Detected (NotDetected) M. pneumoniae (PCR) Not Detected (NotDetected) Parainfluenza 1 (PCR) Not Detected (NotDetected) Parainfluenza 2 (PCR) Not Detected (NotDetected) Parainfluenza 3 (PCR) Not Detected (NotDetected) Parainfluenza 4 (PCR) Not Detected (NotDetected) RSV (PCR) DETECTED A (NotDetected) Entero/Rhino (PCR) Not Detected (NotDetected) 09/05/24 09/05/24 09/05/24 Range/Units 11:59 12:02 13:46 WBC (4.8-10.8) K/ul RBC (4.20-5.40) M/uL Hgb (12.0-16.0) g/dl Hct (37.0-47.0) % MCV (80.0-100.0) fL MCH (25.0-34.0) pg MCHC (32.0-36.0) g/dL RDW Std Deviation (36.4-46.3) fL RDW Coeff of Katrin (11.5-14.5) % Plt Count (130-400) K/uL MPV (9.4-12.4) fL Immature Gran % (Auto) % Neut % (Auto) % Lymph % (Auto) % [facility] % (Auto) % Eos % (Auto) % Baso % (Auto) % Neut # (Auto) (1.40-6.50) K/uL Lymph # (Auto) (1.20-3.40) K/uL [facility] # (Auto) (0.11-0.59) K/uL Eos # (Auto) (0.00-0.50) K/uL Baso # (Auto) (0.00-0.20) K/uL Immature Gran # (Auto) (0.01-0.20) K/uL PT (9.0-12.0) Seconds INR (0.9-1.1) VBG pH (7.36-7.41) VBG pCO2 (38-50) mmHg VBG pO2 mmHg VBG HCO3 mmol/L VBG O2 Saturation % VBG Base Excess mEq/L Sodium (136-145) mmol/L Potassium (3.5-5.1) mmol/L Chloride (98-107) mmol/L Carbon Dioxide (21-32) mmol/L Anion Gap (3-11) BUN (6-23) mg/dl Creatinine (0.6-1.2) mg/dl Est Cr Clr Drug Dosing ml/min eGFR BUN/Creatinine Ratio (10-20) Glucose (70-99(Fasting)) mg/dl POC Glucose 518 H* 532 H* (70-99) mg/dl Calcium (8.6-10.3) mg/dl Magnesium (1.7-2.4) mg/dl Total Bilirubin (0.2-1.0) mg/dl AST (13-39) U/L ALT (7-52) U/L Alkaline Phosphatase (34-104) U/L Troponin I High Sens 26.3 H (0-14) pg/ml B-Natriuretic Peptide (0-100) pg/ml Total Protein (6.0-8.3) gm/dl Albumin (3.4-5.0) gm/dl Globulin (2.5-4.0) gm/dl Albumin/Globulin Ratio (0.9-2) Adenovirus (PCR) (NotDetected) B. pertussis DNA (PCR) (NotDetected) B.parapertussis DNA PCR (NotDetected) C. pneumoniae DNA (PCR) (NotDetected) Coronavirus OC43 (PCR) (NotDetected) Coronavirus HKU1 (PCR) (NotDetected) Coronavirus 229E (PCR) (NotDetected) SARS-CoV-2 (PCR) (NotDetected) Coronavirus NL63 (PCR) (NotDetected) Human Metapneumovir PCR (NotDetected) Influenza Type A (PCR) (NotDetected) Influenza Type B (PCR) (NotDetected) M. pneumoniae (PCR) (NotDetected) Parainfluenza 1 (PCR) (NotDetected) Parainfluenza 2 (PCR) (NotDetected) Parainfluenza 3 (PCR) (NotDetected) Parainfluenza 4 (PCR) (NotDetected) RSV (PCR) (NotDetected) Entero/Rhino (PCR) (NotDetected) 09/05/24 Range/Units 14:13 WBC (4.8-10.8) K/ul RBC (4.20-5.40) M/uL Hgb (12.0-16.0) g/dl Hct (37.0-47.0) % MCV (80.0-100.0) fL MCH (25.0-34.0) pg MCHC (32.0-36.0) g/dL RDW Std Deviation (36.4-46.3) fL RDW Coeff of Katrin (11.5-14.5) % Plt Count (130-400) K/uL MPV (9.4-12.4) fL Immature Gran % (Auto) % Neut % (Auto) % Lymph % (Auto) % [facility] % (Auto) % Eos % (Auto) % Baso % (Auto) % Neut # (Auto) (1.40-6.50) K/uL Lymph # (Auto) (1.20-3.40) K/uL [facility] # (Auto) (0.11-0.59) K/uL Eos # (Auto) (0.00-0.50) K/uL Baso # (Auto) (0.00-0.20) K/uL Immature Gran # (Auto) (0.01-0.20) K/uL PT (9.0-12.0) Seconds INR (0.9-1.1) VBG pH (7.36-7.41) VBG pCO2 (38-50) mmHg VBG pO2 mmHg VBG HCO3 mmol/L VBG O2 Saturation % VBG Base Excess mEq/L Sodium (136-145) mmol/L Potassium (3.5-5.1) mmol/L Chloride (98-107) mmol/L Carbon Dioxide (21-32) mmol/L Anion Gap (3-11) BUN (6-23) mg/dl Creatinine (0.6-1.2) mg/dl Est Cr Clr Drug Dosing ml/min eGFR BUN/Creatinine Ratio (10-20) Glucose (70-99(Fasting)) mg/dl POC Glucose 537 H* (70-99) mg/dl Calcium (8.6-10.3) mg/dl Magnesium (1.7-2.4) mg/dl Total Bilirubin (0.2-1.0) mg/dl AST (13-39) U/L ALT (7-52) U/L Alkaline Phosphatase (34-104) U/L Troponin I High Sens (0-14) pg/ml B-Natriuretic Peptide (0-100) pg/ml Total Protein (6.0-8.3) gm/dl Albumin (3.4-5.0) gm/dl Globulin (2.5-4.0) gm/dl Albumin/Globulin Ratio (0.9-2) Adenovirus (PCR) (NotDetected) B. pertussis DNA (PCR) (NotDetected) B.parapertussis DNA PCR (NotDetected) C. pneumoniae DNA (PCR) (NotDetected) Coronavirus OC43 (PCR) (NotDetected) Coronavirus HKU1 (PCR) (NotDetected) Coronavirus 229E (PCR) (NotDetected) SARS-CoV-2 (PCR) (NotDetected) Coronavirus NL63 (PCR) (NotDetected) Human Metapneumovir PCR (NotDetected) Influenza Type A (PCR) (NotDetected) Influenza Type B (PCR) (NotDetected) M. pneumoniae (PCR) (NotDetected) Parainfluenza 1 (PCR) (NotDetected) Parainfluenza 2 (PCR) (NotDetected) Parainfluenza 3 (PCR) (NotDetected) Parainfluenza 4 (PCR) (NotDetected) RSV (PCR) (NotDetected) Entero/Rhino (PCR) (NotDetected) Imaging Data Radiologist's Impression: Chest X-Ray 09/05/24 09:56 XR chest 1V portable CLINICAL HISTORY: Dyspnea COMPARISON STUDY: 11/15/2023 FINDINGS: There are mitral valvular calcifications. There is stable cardiomegaly without pulmonary vascular congestion. No effusion, consolidation, or pneumothorax. IMPRESSION: No acute findings. ACT 112: Negative or not required by law. Electronically signed by: Marcial Aaron M.D. 09/05/2024 10:26 AM MDM Narrative Patient is a 74-year-old female who presents to the emergency department via EMS with complaints of shortness of breath and difficulty breathing. Patient states that she has been feeling sick for the last 4 days and notes that her stepson has the flu so she was assuming that she also has the flu but today she was feeling much worse. Patient had a DuoNeb and Zofran in the ambulance on the way to the hospital. Patient notes that the Zofran has stopped her nausea and denies any at this time. Patient notes that she has had intermittent nausea and intermittent abdominal pain. Patient notes that she has a history of CHF and COPD. Patient denies any chest pain at this time. Patient was evaluated by myself and findings were noted in the physical exam above. Patient was ordered IV placement, lab work, an upper respiratory viral panel, and chest x-ray. The patient was also ordered a VBG and lab work that included a troponin and BNP. Patient's lab work resulted with an elevated white blood cell count of 14.53. Patient had no indication of anemia or significant electrolyte imbalance though she did have an anion gap of 17. Patient's VBG resulted with a pCO2 of 36. Patient's blood glucose was also 555. Patient was given a dose of 10 units of regular insulin via IV. Patient's BNP was also elevated at 646 and her troponin was elevated at 31.8. Patient's chest x-ray resulted and was interpreted by radiology to show no acute findings. No evidence of effusion, consolidation, or pneumothorax. Patient had an EKG completed as well that showed the patient to be in sinus tachycardia with PACs. Patient's blood sugar was repeated and after the administration of the insulin her blood sugar was now 518. Patient had a second DuoNeb while she was here in the emergency department as well has a dose of Solu-Medrol. Patient states that she does feel that she is breathing better after the DuoNeb. Patient is maintaining an oxygen saturation in the mid 90s and has a decreased work of breathing. Patient had a repeat troponin order placed. Patient's upper respiratory viral panel resulted positive for RSV. I spoke with the patient and her family member at bedside and discussed all of these findings with them. I discussed with the patient that it would be better for her to be admitted to the hospital for further evaluation and management. Patient verbalized understanding and was agreeable to this plan for admission. I reached out and talk to the [facility] hospitalist group, I spoke with Chasidy, giving her a full report on the patient's chief complaint, current status, and the results of her imaging and lab work. Chasidy accepted the patient to be admitted under Dr. Rosario. Please refer to [facility] hospitalist group's documentation for further evaluation and management of this patient. Impression RSV (acute bronchiolitis due to respiratory syncytial virus), DKA, type 2 Discharge Plan Visit Data Chief Complaint: Shortness of Breath/Dyspnea ED Provider: Judith Metcalf ED Midlevel Provider: Kandi Wheatley Discharge Problem: RSV (acute bronchiolitis due to respiratory syncytial virus), DKA, type 2 Patient Disposition: Admitted As Inpatient Discharge Instructions Interventions: ED Discharge Assessment Last Done: 09/05/24 13:56
[2024-09-05] MEDS: ENOXAPARIN 100 MG/1ML SYR SQ SCH (17:00)
[2024-09-05] MEDS: WARFARIN SOD 10 MG TAB PO SCH (17:00)
[2024-09-05] MEDS: cefTRIAXone SODIUM 2,000 MG/50 ML BAG IV STA (17:28)
[2024-09-05] MEDS: INSULIN ASPART PER UNIT CHARGE SC SCH (17:54)
[2024-09-05 18:22] LABS: BUN Creatinine Ratio 20.7 (10-20); Calcium 7.6 mg/dl (8.6-10.3); Creatinine Clr Calc Pharmacy 47.4 ml/min; Potassium 3.9 mmol/L (3.5-5.1)
[2024-09-05] MEDS ORDERED: POTASSIUM PHOS 3 MMOL/1 ML INFUSION IV STA (18:45)
[2024-09-05] MEDS: FORMOTEROL 20 MCG/2 ML VIAL NEB SCH (19:56)
[2024-09-05] MEDS: BUDESONIDE 0.5 MG/2 ML VIAL (PULMICORT) NEB SCH (19:56)
[2024-09-05] MEDS: ALBUT/IPRATROP 3MG/0.5MG NEB 3 ML VIAL NEB SCH (19:56)
[2024-09-05] MEDS: ATORVASTATIN 40 MG TAB PO SCH (20:08)
[2024-09-05] MEDS: SERTRALINE HCL 50 MG TABLET PO SCH (20:09)
[2024-09-05] MEDS: guaiFENesin 600 MG TABCR PO SCH (20:10)
[2024-09-05] MEDS: METOPROLOL SUCC 50MG EXT REL TAB PO SCH (20:11)
[2024-09-05] MEDS: traZODone HCL 50 MG TAB PO SCH (20:16)
[2024-09-05] MEDS: PREGABALIN 150 MG CAP PO SCH (20:16)
[2024-09-05 21:45] LABS: BUN Creatinine Ratio 26.4 (10-20); Calcium 7.6 mg/dl (8.6-10.3); Potassium 3.6 mmol/L (3.5-5.1)
[2024-09-06] MEDS: POTASSIUM PHOSPHATE 40 MMOL in SODIUM CHLORIDE 0.9% 1,000 ML IV ONE (01:31)
[2024-09-06 01:35] LABS: Calcium 8.2 mg/dl (8.6-10.3); Creatinine Clr Calc Pharmacy 51.4 ml/min; Magnesium 2.1 mg/dl (1.7-2.4); Phosphorus 1.9 mg/dl (2.5-4.9)
[2024-09-06 07:55] LABS: Hemoglobin 11.2 g/dl (12.0-16.0); Mean Corpuscular Hemoglobin 29.8 pg (25.0-34.0); Mean Corpuscular Hgb Conc 32.9 g/dL (32.0-36.0); Mean Corpuscular Volume 90.4 fL (80.0-100.0); Mean Platelet Volume 11.7 fL (9.4-12.4); Platelet Count 114 K/uL (130-400); RDW Coefficient of Variation 15.3 % (11.5-14.5); RDW Standard Deviation 50.4 fL (36.4-46.3); Red Blood Count 3.76 M/uL (4.20-5.40); White Blood Count 18.18 K/ul (4.8-10.8)
[2024-09-06 08:17] LABS: Phosphorus 3.8 mg/dl (2.5-4.9)
[2024-09-06 08:33] LABS: INR 1.6 (0.9-1.1)
--- NOTE | 2024-09-06 08:43 | Cardiology Consultation ---
Date of Consultation September 06, 2024 Assessment & Plan (1) Demand ischemia of myocardium: (2) Elevated troponin I level: (3) RSV (acute bronchiolitis due to respiratory syncytial virus): (4) ASCVD (arteriosclerotic cardiovascular disease): (5) DKA, type 2: (6) Paroxysmal atrial fibrillation: (7) Subtherapeutic international normalized ratio (INR): Plan 74-year-old female admitted with upper respiratory tract infection/COPD exacerbation due to RSV infection. Also diagnosed with diabetic ketoacidosis on admission. Elevated troponin noted in the setting of known, severe fixed coronary artery disease (RCA BUNDLE PACKER with collaterals). Patient without anginal symptoms. Preliminary view of echocardiogram demonstrates preserved LV systolic function. Elevated troponin likely secondary to demand ischemia. Telemetry demonstrates sinus rhythm with PACs. Agree with full dose Lovenox until INR therapeutic. Continue other cardiovascular medications Including aspirin, isosorbide monohydrate, Toprol-XL, and statin therapy. Discontinue atorvastatin, patient taking rosuvastatin as outpatient. Continue to hold furosemide in setting of DKA. Broad-spectrum antibiotic coverage and IV insulin as per internal medicine. I spent a total of 60 minutes on the date of service in preparation, delivery, and documentation of the care provided to this patient, excluding any time spent in the performance of separately billed services. Sandip Fair DO, [facility] History of Present Illness Reason for Consultation: elevated troponin Requesting Physician: Dr. Rosario Attending Physician: Kelvin Huddleston MD History of Present Illness 74-year-old female presented to the emergency department due to shortness of breath and difficulty breathing. Feeling sick for approximately 4 days prior to admission assuming she had contracted the flu. Intermittent nausea and abdominal discomfort. No chest pain on admission. History of complex coronary artery disease, chronic RCA occlusion, and chronic atrial fibrillation. Viral testing positive for RSV on admission. High-sensitivity troponin trending up to 3432 prompting request for cardiology evaluation. Feeling better this morning. Denies any chest discomfort or heaviness. Notes cough and expiratory wheeze. No sputum production. Denies orthopnea, PND, or lower extremity edema. Notes some mild lower abdominal discomfort associated with diarrhea prior to admission. Past medical history (copied from [facility] medical record): 1. Permanent atrial fibrillation--on metoprolol and digoxin. Intolerance to higher doses of beta-adis due to COPD. a. [id number] score of 5 (age 1, female, HTN, CAD)--on Coumadin b. S/p JORGE guided DCCV in the setting of AFib RVR and hypotension following a cardiac catheterization, 11/13/2023 2. Coronary artery disease with chronic angina a. Abnormal nuclear stress, 2019-- medically managed, no history of catheterization or PCI b.S/p cardiac cath with findings of RCA BUNDLE PACKER (L>R collaterals), 30-40% prox Lcx and mild irregularities elsewhere in the Left circulation-- medical management recommended, 11/12/2023 i. Cath complicated by AFIB RVR with hypotension s/p JORGE guided DCCV 3. Hypertension 4. Mild aortic stenosis 5. PFO 6. COPD 7. History of DVTs 8. Diabetes Allergies Allergy/AdvReac Type Severity Reaction Status Date / Time alendronate sodium Allergy Severe DIFFICULTY Verified 09/21/22 22:31 BREATHING/BURNING SENSATION esomeprazole Allergy Intermediate Hives Verified 09/21/22 22:31 Home Medications Medication Instructions Recorded Confirmed Type albuterol sulfate 90 mcg/actuation 2 puff inhalation QID PRN 01/12/20 09/05/24 History aerosol inhaler (Ventolin HFA) Shortness Of Breath Or Wheezing fluticasone propionate 50 2 spray intranasal QAM 01/12/20 09/05/24 History mcg/actuation nasal spray,suspension (Flonase Allergy Relief) metformin 1,000 mg tablet 1,000 mg PO BIDM 01/12/20 09/05/24 History nitroglycerin 0.3 mg sublingual 0.3 mg sublingual .PRN/UD PRN 01/12/20 09/05/24 History tablet (Nitrostat) Chest Pain pregabalin 150 mg capsule 150 mg PO BID 01/12/20 09/05/24 History sertraline 50 mg tablet 75 mg PO HS 01/12/20 09/05/24 History trazodone 50 mg tablet 50 mg PO HS 01/12/20 09/05/24 History warfarin 5 mg tablet 5 mg PO UD 01/12/20 09/05/24 History cholecalciferol (vitamin D3) 25 1,000 unit PO QAM #30 caps 01/19/20 09/05/24 Rx mcg (1,000 unit) capsule multivitamin (Daily-Moiz tablet) 1 tab PO QAM #30 tabs 01/19/20 09/05/24 Rx metoprolol succinate 50 mg 50 mg PO BID #60 tabs 01/23/20 09/05/24 Rx tablet,extended release 24 hr cyanocobalamin (vitamin B-12) 1,000 mcg sublingual DAILY 09/21/22 09/05/24 History 1,000 mcg sublingual tablet aspirin 81 mg tablet,delayed 81 mg PO QAM 11/15/23 09/05/24 History release insulin aspart U-100 100 unit/mL 0 sliding scale dose continuous 11/15/23 09/05/24 History subcutaneous solution (Novolog subcutaneous infusion .WAITING ON U-100 Insulin aspart) NEW PUMP isosorbide mononitrate 60 mg 60 mg PO QAM 11/15/23 09/05/24 History tablet,extended release 24 hr rosuvastatin 20 mg tablet 20 mg PO QAM 11/15/23 09/05/24 History furosemide 20 mg tablet 20 mg PO 3XWK #30 tabs 11/17/23 09/05/24 Rx potassium chloride 20 mEq 20 meq PO 3XWK #30 tabs 11/17/23 09/05/24 Rx tablet,extended release amoxicillin 875 mg-potassium 1 tab PO BID 09/05/24 09/05/24 History clavulanate 125 mg tablet famotidine 40 mg tablet 40 mg PO DAILY 09/05/24 09/05/24 History Patient History Medical History Benign neoplasm of colon Osteoarthritis History of DVT (deep vein thrombosis) "RLE x 2 in " 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) "Abnormal left breast mammogram 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 Estrogen receptor positive and progesterone receptor positive Status post lumpectomy with sentinel lymph node biopsy stage [id number] 04/07/2015 Status post completion of radiation therapy 07/21/2015 received 6640 cGy" On 07/25/15 17:54 Jayleen Bates wrote "Abnormal left breast mammogram 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 Estrogen receptor positive and progesterone receptor positive Status post lumpectomy with sentinel lymph node biopsy stage [id number] 04/07/2015 Status post completion of radiation therapy 07/21/2015 received 6640 cGy" On 07/25/15 17:49 Jayleen Bates wrote "Abnormal left breast mammogram 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 Estrogen receptor positive and progesterone receptor positive Status post lumpectomy with sentinel lymph node biopsy stage [id number] 04/07/2015" Surgical History H/O partial mastectomy "left breast 04/2015 with lymph node biopsy" H/O arthroscopic knee surgery H/O colonoscopy History of carpal tunnel surgery S/P cervical spinal fusion S/P dilation and curettage H/O vein stripping Family History Other Breast cancer Diabetes Heart disease Social History Smoking Status: Former smoker Tobacco Type: Cigarettes Second Hand Exposure: No; Do You Dip or Chew Tobacco: No; Hx Alcohol Use: No Hx Substance Use: No Preferred Language: Romanian Communication Ability: Effective Nuclear Operator Required: No Beliefs That Will Affect Care: None Current Living Situation: Spouse Current Living Situation Comment: lives at home with and step-son Other Information That Helps Us Care for You: No Feels Safe at Home: Yes Safety Concerns: Feels Safe At This Time Assistive Devices: Cane and Walker Review of Systems Review of Systems: All systems reviewed & are unremarkable except as noted in Subjective Physical Exam Constitutional: well nourished and + obese; no acute distress Respiratory: no respiratory distress and no labored breathing Auscultation: + rhonchi and + wheezes; no rales Cardiovascular: Rate/Rhythm: regular rate (with ectopy) Heart Sounds: normal S1, normal S2 and + murmur (2/6Low pitched mid peaking systolic ejection murmur heard best at base) Vessels: radial pulses present; no JVD Extremities: no edema Gastrointestinal (Abdomen): Inspection/Auscultation: abdomen normal to inspection and normal bowel sounds; abdomen not distended Percussion/Palpation: + abdomen tender (mild left lower quadrant); no guarding and abdomen not rigid Neurologic: CN's II-XI intact bilaterally and moves all extremities Psychiatric: A+Ox3, euthymic affect Results & Data Vital Signs (Past 12 Hours) Vital Signs Temp Pulse Pulse Pulse Resp BP Pulse Ox 09/06/24 08:04 75 15 95 09/06/24 07:49 36.5 C 96 H 20 113/73 92 09/06/24 03:20 36.7 C 80 21 103/58 L 89 L 09/06/24 00:39 89 17 90 09/05/24 22:58 36.9 C 85 19 104/59 L 90 09/05/24 21:58 89 O2 Del Method FiO2 09/06/24 08:04 Room Air 21 09/06/24 07:49 Room Air 09/06/24 03:20 Room Air 09/06/24 00:39 Room Air 09/05/24 22:58 Room Air 09/05/24 21:58 Laboratory Results Cardiac Enzymes 09/05/24 09/05/24 09/05/24 Range/Units 09:39 10:52 12:02 Troponin I High Sens 31.8 H 26.3 H (0-14) pg/ml B-Natriuretic Peptide 647 H (0-100) pg/ml 09/05/24 09/06/24 09/06/24 Range/Units 17:30 00:03 01:05 Troponin I High Sens 1498.7 H* D 2677.3 H* D 3432.5 H* D (0-14) pg/ml B-Natriuretic Peptide (0-100) pg/ml Coagulation 09/05/24 09/05/24 09/06/24 Range/Units 09:39 10:52 07:30 PT 13.6 H 17.0 H (9.0-12.0) Seconds B-Natriuretic Peptide 647 H (0-100) pg/ml CBC 09/06/24 Range/Units 07:30 WBC 18.18 H (4.8-10.8) K/ul RBC 3.76 L (4.20-5.40) M/uL Hgb 11.2 L (12.0-16.0) g/dl Hct 34.0 L (37.0-47.0) % Plt Count 114 L (130-400) K/uL Neut # (Auto) 16.58 H (1.40-6.50) K/uL Lymph # (Auto) 0.67 L (1.20-3.40) K/uL Glynn # (Auto) 0.81 H (0.11-0.59) K/uL Eos # (Auto) 0.00 (0.00-0.50) K/uL Baso # (Auto) 0.02 (0.00-0.20) K/uL Comprehensive Metabolic Panel 09/05/24 09/05/24 09/05/24 Range/Units 15:09 17:30 21:10 Sodium 134 L 132 L 134 L (136-145) mmol/L Potassium 4.1 3.9 3.6 (3.5-5.1) mmol/L Chloride 102 101 103 (98-107) mmol/L Carbon Dioxide 19 L 22 24 (21-32) mmol/L BUN 24 H 24 H 29 H (6-23) mg/dl Creatinine 1.04 1.16 1.10 (0.6-1.2) mg/dl Glucose 618 H* 525 H* 359 H* (70-99(Fasting)) mg/dl Calcium 7.9 L 7.6 L 7.6 L (8.6-10.3) mg/dl 09/06/24 09/06/24 Range/Units 01:05 08:59 Sodium 136 135 L (136-145) mmol/L Potassium 4.0 4.9 D (3.5-5.1) mmol/L Chloride 106 105 (98-107) mmol/L Carbon Dioxide 25 24 (21-32) mmol/L BUN 31 H 39 H (6-23) mg/dl Creatinine 1.07 1.06 (0.6-1.2) mg/dl Glucose 202 H 321 H* (70-99(Fasting)) mg/dl Calcium 8.2 L 7.9 L (8.6-10.3) mg/dl Intake and Output 09/05/24 09/06/24 09/06/24 22:59 06:59 14:59 Intake Total 318.443 / 3146.538 1319.455 / 3146.538 97.76 / 97.76 Output Total 550 / 550 Balance 318.443 / 3146.538 1319.455 / 3146.538 -452.24 / -452.24 Intake: IV 78.443 / 2786.538 1199.455 / 2786.538 97.76 / 97.76 Insulin Regular 250 units In 28.443 / 236.538 199.455 / 236.538 47.76 / 47.76 Sodium Chloride 0.9% 247.5 ml @ 11.5 UNITS/HR 11.5 mls/hr IV . [id number] RAQUEL Rx#:[id number] Sodium Chlor 0.45% + 20Meq KCl 1000 / 1000 20 meq In 1,000 ml @ 100 mls/hr IV .Q10H RAQUEL Rx#:[id number] cefTRIAXone SODIUM 2,000 mg In 50 / 50 50 / 50 50 ml @ 100 mls/hr IV Q24H RAQUEL Rx#:[id number] Oral 240 / 360 120 / 360 Output: Urine 550 / 550 Other: Weight 95.4 kg Weight Measurement Method Built in [facility] Diagnostic Findings 2D echo report, [facility], 08/25/2024: The left ventricular cavity size is normal. The LV wall thickness is moderately increased (concentric). The qualitative LV ejection fraction is 60-64% (normal). The left ventricular diastolic function is moderately abnormal (grade II). The left atrium is moderately enlarged (42-48 ml/m^2). The aortic valve is moderately calcified. Mild aortic valve stenosis is present. There is severe mitral annular calcification. Mitral stenosis is absent. Mild mitral regurgitation is present. There is no evidence of pulmonary hypertension. Preliminary review of echo performed today 09/06/2024: Preserved LV systolic function. Normal wall motion. Moderate LVH. No change when compared to recent echocardiogram.
[2024-09-06] MEDS: LANTUS PER UNIT CHARGE SC STA (09:30)
[2024-09-06] MEDS: ASPIRIN 81 MG ECTAB PO SCH (09:33)
[2024-09-06] MEDS: ISOSORBIDE MONO EXTENDED REL 60 MG TABCR PO SCH (09:33)
[2024-09-06] MEDS: FAMOTIDINE 40 MG TABLET PO SCH (09:33)
[2024-09-06] MEDS: ROSUVASTATIN CALCIUM 20 MG TAB PO SCH (09:33)
[2024-09-06] MEDS: FLUTICASONE PROPIONATE NA SPR 16 GM BTL NAE SCH (09:34)
[2024-09-06] MEDS: CYANOCOBALAMIN (B-12) 500 MCG TABLET PO SCH (09:34)
[2024-09-06] MEDS ORDERED: Heparin IV Adult Wt-Based Low-Dose *NO* INITIAL Bolus Protocol IV STA (09:41)
[2024-09-06 09:49] LABS: BUN Creatinine Ratio 36.8 (10-20); Calcium 7.9 mg/dl (8.6-10.3); Creatinine Clr Calc Pharmacy 52.4 ml/min; Magnesium 2.1 mg/dl (1.7-2.4); Phosphorus 3.5 mg/dl (2.5-4.9); Potassium 4.9 mmol/L (3.5-5.1)
[2024-09-06] MEDS: cefTRIAXone SODIUM 2,000 MG/50 ML BAG IV SCH (09:55)
[2024-09-06] MEDS ORDERED: HEPARIN 25000 UNIT/500 ML 25,000 UNITS/500 ML BAG IV SCH (10:00)
[2024-09-06 10:26] LABS: Basophils # (auto) 0.02 K/uL (0.00-0.20); Basophils % (auto) 0.1 %; Immature Granulocytes % (auto) 0.6 %; Lymphocytes # (auto) 0.67 K/uL (1.20-3.40); Lymphocytes % (auto) 3.7 %; Monocytes # (auto) 0.81 K/uL (0.11-0.59); Monocytes % (auto) 4.5 %; Neutrophils # (auto) 16.58 K/uL (1.40-6.50); Neutrophils % (auto) 91.1 %
[2024-09-06] MEDS: ENOXAPARIN 100 MG/1ML SYR SQ SCH (10:40)
--- NOTE | 2024-09-06 13:13 | Hospitalist Progress Note ---
Date of Service September 06, 2024 Assessment & Plan (1) COPD exacerbation: (2) RSV (acute bronchiolitis due to respiratory syncytial virus): (3) DKA, type 2: (4) Atrial fibrillation: (5) Chronic anticoagulation: (6) Coronary artery disease: (7) HTN (hypertension): (8) Dyslipidemia: Plan: 74-year-old female with PMH COPD, asthma, CAD, atrial fibrillation anticoagulated on warfarin, DM II on insulin pump, dyslipidemia, history DVT, neuropathy, prior tobacco use presented to ER with c/o cough, SOB x 4 days. Patient reports cough productive yellow sputum [employer]GER. 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 Patient presented with cough, shortness of breath, nausea, vomiting, diarrhea for few days prior to arrival. At presentation, WBC elevated, respiratory viral panel positive for RSV. CXR with no acute finding. Continue with Rocephin , add probiotic. Patient reports feeling better, reports shortness of breath better, continues to have yellow sputum with cough. Duonebs, budesonide, formoterol nebs Mucinex, incentive spirometry, flutter valve #DKA #Insulin Dependent DM II with insulin pump Not used insulin pump at home for past 4 days as reports couldn't get cartridge in. Hold on home insulin pump at this time A1c: 11.1 on 05/19/24, A1C this admission pending. Random glucose: 555 Glycemic pharmacy on board, pt on insulin drip for now, appreciate their Mx. Pt tolerating diet well, denies further nausea and vomiting. Monitor and replete electrolytes. #Diarrhea: Reports loose stools 2-3 days ago. No BM last 2 days. Seems resolved. #Elevated troponin #CAD #History chronic RCA occlusion #HTN #Dyslipidemia 09/02/24 Echo: EF: 60-64%, grade II diastolic dysfunction, mild , severe mitral annular calcification, no MS, mild MR, no evidence pulmonary HTN Denies CP Troponin: 31.8-->26--1498---2677---3432 Echo with EF of 60 to 65%, grade 2 diastolic dysfunction, focal area of akinesis involving the apical inferior wall otherwise normal wall motion. Discussed with cardiology, likely demand ischemia. Continue telemetry monitoring. Continue aspirin, metoprolol succinate, isosorbide, rosuvastatin #Atrial Fibrillation #History DVT #Subtherapeutic INR History cardioversion Pt not able to take coumadin for 4 days ago [employer] iso N, V. INR today 1.6. Continue therapeutic Lovenox and warfarin Monitor PT/INR closely. DC Lovenox once therapeutic INR reached. #Depression: Continue home sertraline DVT Prophylaxis: Lovenox SQ until INR therapeutic Admit PCU Full Code as per discussion with pt Admission and Anticipated Discharge Date Admission Date: September 05, 2024 Subjective Patient was seen and examined at bedside. Patient was lying in bed, on room air, NAD, resting comfortably. Patient reports improvement in her nausea, vomiting. Patient reports her last diarrhea was 2 days ago. Patient denies fever. Reports sore throat and cough with dark brown to yellow sputum. Patient denies any chest pain or shortness of breath. Patient reports overall feeling better. Physical Exam Physical Exam: General: Ill appearing, obese elderly female Head: normocephalic, atraumatic Eyes: conjunctiva non-injected, anicteric ENT: normal inspection external ears, nose, mucous membranes moist Neck: supple, trachea midline, Lungs: diminished breath sounds throughout with occ bb crackles CV: rrr, +murmur, no pretibial edema Abd: protuberant, normal BS, soft, non-tender Ext: no cyanosis, no calf tenderness Neuro: A&O x 3, no focal deficits noted, normal affect Skin: warm, dry Results & Data Results & Data Vital Signs (Past 12 Hours) Vital Signs Temp Pulse Pulse Resp BP Pulse Ox O2 Del Method 09/06/24 10:36 36.6 C 79 18 111/69 95 Room Air 09/06/24 08:04 75 15 95 Room Air 09/06/24 07:49 36.5 C 96 H 20 113/73 92 Room Air 09/06/24 03:20 36.7 C 80 21 103/58 L 89 L Room Air FiO2 09/06/24 10:36 09/06/24 08:04 21 09/06/24 07:49 09/06/24 03:20 (4) Atrial fibrillation Atrial fibrillation type: unspecified Qualified Code(s): I48.91 - Unspecified atrial fibrillation
[2024-09-06 14:09] LABS: BUN Creatinine Ratio 35.6 (10-20); Calcium 8.2 mg/dl (8.6-10.3); Magnesium 2.2 mg/dl (1.7-2.4); Potassium 4.4 mmol/L (3.5-5.1)
--- NOTE | 2024-09-06 14:19 | Pharmacy Report ---
Pharmacy Glycemic Short Note 2 - Date of Service September 06, 2024 - Glycemic Short BSG Results (Last 24 hours): 09/05/24 09/05/24 09/05/24 14:13 15:09 15:21 Glucose 618 H* POC Glucose 537 H* 550 H* 09/05/24 09/05/24 09/05/24 16:33 17:30 17:33 Glucose 525 H* POC Glucose 555 H* 512 H* 09/05/24 09/05/24 09/05/24 18:35 20:06 21:10 Glucose 359 H* POC Glucose 422 H* 353 H* 09/05/24 09/05/24 09/06/24 22:02 22:54 00:00 Glucose POC Glucose 338 H* 277 H 231 H 09/06/24 09/06/24 09/06/24 00:56 01:05 01:22 Glucose 202 H POC Glucose 190 H 193 H 09/06/24 09/06/24 09/06/24 01:59 03:09 04:16 Glucose POC Glucose 215 H 243 H 289 H 09/06/24 09/06/24 09/06/24 05:09 06:23 07:26 Glucose POC Glucose 307 H* 276 H 249 H 09/06/24 09/06/24 09/06/24 07:30 08:59 10:25 Glucose 258 H 321 H* POC Glucose 319 H* 09/06/24 09/06/24 11:59 12:54 Glucose POC Glucose 214 H 239 H OUTPATIENT ANTIDIABETIC REGIMEN: * Metformin 1000 mg PO AM * Ozempic -- on HOLD * Novolog Medtronic 780G insulin pump (per 10/24/23 [facility] visit records) * Average ~200 units of basal daily * Total daily dose ~290-350 units daily * Sensitivity factor: 10 * Carbohydrate ratio: 5 (using preset boluses) * Preset boluses: 25 units with breakfast, 45 units with lunch, and 40 units with dinner * Toujeo 60 units BID PRN pump failure * HbA1c 10.4% (11/15/23) -- updated A1c pending ASSESSMENT: 09/06: * Graciela has been on the insulin drip overnight. Very high rates up to 22.5 units/hr observed over night. Updated labs show no indication of DKA. Remains on 1/2 NS + 20 KCl at 100 mL/hr and Ceftriaxone. Ordered and tolerating a T2DM diet. * Will give basal insulin today. Plan to keep on insulin drip until rates significantly decrease. Tightened goal range on insulin drip today. This was relayed to RN. Please see plan below for transitioning. 09/05: * Ms Mobley is a 74yo diabetic F admitted with COPD exac, RSV, early DKA (pH 7.29, AG 17, CO2 20). * Pt reports that she has not used her insulin pump for the past 4 days d/t inability to get it refilled successfully. * Pt initiated on IV insulin infusion in the ED. Will continue to utilize IV insulin until labs have resolved and pt is able to transition to SQ insulin. May also opt to continue IV insulin infusion until pump may be resumed, if relatively easily managed on insulin gtt. * Pt received 125mg IV SoluMedrol in the ED this afternoon. PLAN FOR INPATIENT GLYCEMIC CONTROL: * Hold outpatient oral diabetes medications * IV insulin infusion per protocol * Current rate = 13.8 units/hr * Goal range = 110-180 mg/dL * Transition from IV insulin drip to SC basal/bolus insulin: * MUST meet both of the following criteria: - Most recent BSG less than or equal to 180 mg/dL - Insulin infusion rate 5 units/hr or less * Basal insulin * Lantus 80 units SC BID * Bolus insulin (only if insulin drip shut off - until then, continue with carb ratio per calculator) * Accuchecks ACHS and 00,04 for first night off insulin drip * Goal range = 110-140 mg/dL * Correction factor: 8 mg/dL/unit * Carb ratio: 1.5 g/CHO/unit
[2024-09-06 20:50] LABS: Appearance Urine Clear (Clear); Bacteria Urine Automated None Seen (None Seen); Bilirubin Urine Negative (Negative); Blood Urine Negative (Negative); Color Urine Yellow; Glucose Urine UA Trace (Negative); Ketones Urine Negative (Negative); Leukocyte Esterase Urine 1+ (Negative); Nitrite Urine Negative (Negative); Protein Urine Trace (Negative); Specific Gravity Urine 1.024 (1.000-1.030); Urobilinogen Urine Negative (Negative); pH Urine 5.5 (4.5-7.5)
[2024-09-06] MEDS: LANTUS PER UNIT CHARGE SC SCH (21:25)
[2024-09-07] MEDS: INSULIN ASPART PER UNIT CHARGE SC ONE (03:27)
[2024-09-07 07:30] LABS: Hematocrit (blood only) 35.6 % (37.0-47.0); Hemoglobin 11.6 g/dl (12.0-16.0); Mean Corpuscular Hgb Conc 32.6 g/dL (32.0-36.0); Mean Platelet Volume 11.8 fL (9.4-12.4); Platelet Count 165 K/uL (130-400); RDW Coefficient of Variation 15.8 % (11.5-14.5); RDW Standard Deviation 53.9 fL (36.4-46.3); Red Blood Count 3.87 M/uL (4.20-5.40)
[2024-09-07 07:37] LABS: Magnesium 2.4 mg/dl (1.7-2.4); Phosphorus 3.8 mg/dl (2.5-4.9)
[2024-09-07 07:41] LABS: INR 3.6 (0.9-1.1); Prothrombin Time 34.5 Seconds (9.0-12.0)
--- NOTE | 2024-09-07 08:46 | Electrocardiogram Report ---
Test Reason : Blood Pressure : */* mmHG Vent. Rate : 77 BPM Atrial Rate : 77 BPM P-R Int : 138 ms QRS Dur : 88 ms QT Int : 440 ms P-R-T Axes : 81 44 102 degrees QTcB Int : 497 ms Sinus rhythm with Premature supraventricular complexes Diffuse Nonspecific T wave abnormality ST depression in Anterolateral leads Prolonged QT Abnormal ECG When compared with ECG of 05-Sep-2024 09:37, HR has decreased by 41 bpm Nonspecific T wave abnormality has replaced inverted T waves in Lateral leads Confirmed by Jaspal Barajas ([id number]) on 09/07/2024 8:45:46 AM Referred By: REFERRED SELF Confirmed By: Jaspal Barajas
[2024-09-07] MEDS: INSULIN ASPART PER UNIT CHARGE SC SCH (08:50)
[2024-09-07] MEDS ORDERED: LANTUS PER UNIT CHARGE SC SCH (09:00)
[2024-09-07 09:09] LABS: Troponin I High Sensitivity 1161.2 pg/ml (0-14)
[2024-09-07] MEDS: ADVANCED PROBIOTIC 625 MG CAPSULE PO SCH (09:15)
[2024-09-07] MEDS: DOXYCYCLINE HYCLATE 100 MG CAP PO SCH (10:18)
--- NOTE | 2024-09-07 11:03 | Cardiology Progress Note ---
Date of Service September 07, 2024 Assessment & Plan (1) Demand ischemia of myocardium: (2) Elevated troponin I level: (3) RSV (acute bronchiolitis due to respiratory syncytial virus): (4) ASCVD (arteriosclerotic cardiovascular disease): (5) DKA, type 2: (6) Paroxysmal atrial fibrillation: Plan 74-year-old female admitted with upper respiratory tract infection/COPD exacerbation due to RSV infection, and diabetic ketoacidosis. Elevated troponin noted in the setting of known, severe fixed coronary artery disease (RCA CLINICAL STUDIES SPECIALIST with collaterals). Patient without anginal symptoms. Elevated troponin likely secondary to demand ischemia. Telemetry demonstrates sinus rhythm with PACs. Discontinue Lovenox. Continue warfarin for goal INR of 2.0-3.0. Continue other cardiovascular medications Including aspirin, isosorbide monohydrate, Toprol-XL, and statin therapy. Consider restart outpatient furosemide pending review of a.m. labs. Broad-spectrum antibiotic coverage and IV insulin as per internal medicine. Cardiology will sign off. Please call with additional concerns/questions. Sandip Fair DO, [facility] Admission and Anticipated Discharge Date Admission Date: September 05, 2024 Subjective Patient seen and examined at bedside. Feeling better today. No chest pain or shortness of breath, however, continues to note active wheeze. No orthopnea or PND. Telemetry reveals sinus rhythm 70s-90s. INR supratherapeutic, 3.6 today. Review of Systems Review of Systems: All systems reviewed & are unremarkable except as noted in Subjective Physical Exam Constitutional: well nourished and + obese; no acute distress Respiratory: no respiratory distress and no labored breathing Auscultation: + wheezes; no rales and no rhonchi Cardiovascular: Rate/Rhythm: regular rate (with ectopy) Heart Sounds: normal S1, normal S2 and + murmur (2/6Low pitched mid peaking systolic ejection murmur heard best at base) Vessels: radial pulses present; no JVD Extremities: no edema Gastrointestinal (Abdomen): Inspection/Auscultation: abdomen normal to inspection and normal bowel sounds; abdomen not distended Percussion/Palpation: + abdomen tender (mild left lower quadrant); no guarding and abdomen not rigid Neurologic: CN's II-XI intact bilaterally and moves all extremities Psychiatric: A+Ox3, euthymic affect Results & Data Vital Signs (Past 12 Hours) Vital Signs Temp Pulse Resp BP Pulse Ox O2 Del Method O2 Flow Rate 09/07/24 08:22 145/74 H 09/07/24 07:59 36.8 C 100 H 18 145/74 H 92 Nasal Cannula 2 09/07/24 07:20 98 H 19 89 L Nasal Cannula 2 09/07/24 03:44 37 C 88 16 96/58 L 75 L Room Air 09/07/24 01:58 84 18 91 Room Air 09/06/24 23:03 37.1 C 85 18 100/68 85 L Room Air Laboratory Results Cardiac Enzymes 09/07/24 Range/Units 06:44 Troponin I High Sens 1161.2 H* D (0-14) pg/ml Coagulation 09/07/24 Range/Units 06:44 PT 34.5 H (9.0-12.0) Seconds CBC 09/07/24 Range/Units 06:44 WBC 20.40 H (4.8-10.8) K/ul RBC 3.87 L (4.20-5.40) M/uL Hgb 11.6 L (12.0-16.0) g/dl Hct 35.6 L (37.0-47.0) % Plt Count 165 (130-400) K/uL Comprehensive Metabolic Panel 09/06/24 09/06/24 Range/Units 07:30 08:59 Sodium 137 135 L (136-145) mmol/L Potassium 4.4 4.9 (3.5-5.1) mmol/L Chloride 106 (98-107) mmol/L Carbon Dioxide 25 (21-32) mmol/L BUN 36 H 39 H (6-23) mg/dl Creatinine 1.01 1.06 (0.6-1.2) mg/dl Glucose 258 H (70-99(Fasting)) mg/dl Calcium 8.2 L 7.9 L (8.6-10.3) mg/dl Intake and Output 09/06/24 09/07/24 09/07/24 22:59 06:59 14:59 Intake Total 81.86 / 1608.7003 13.58 / 1608.7003 50 / 50 Output Total 300 / 850 Balance -218.14 / 758.7003 13.58 / 758.7003 50 / 50 Intake: IV 81.86 / 1248.7003 13.58 / 1248.7003 50 / 50 Insulin Regular 250 units In 81.86 / 185.367 13.58 / 185.367 Sodium Chloride 0.9% 247.5 ml @ 2.6 UNITS/HR 2.6 mls/hr IV . Q24H [facility] Rx#:[id number] cefTRIAXone SODIUM 2,000 mg In 50 / 50 50 ml @ 100 mls/hr IV Q24H [facility]QU[facility] Rx#:[id number] Output: Urine 300 / 850 Other: # Unmeasured Voids 1 1 Weight 96.434 kg Weight Measurement Method Built in [facility]
--- NOTE | 2024-09-07 11:09 | XRay Report ---
EXAM: Radiograph of the Chest 1 View INDICATION: Pulmonary edema. TECHNIQUE: Frontal view of the chest. COMPARISON: 09/05/2024 FINDINGS: Lungs and pleural spaces: Allowing for differences in technique, there is new pulmonary vascular congestion. Mild pulmonary edema not excluded. Area of opacity in the left midlung likely reflects summation shadow with overlying breast. Small infiltrate not completely excluded. No confluent consolidation or visible pleural effusion noted. Heart: Stable large cardiac shadow. Mediastinum: Normal contour. Bones/joints: No fracture, erosion or dislocation. Soft tissues: No abnormality noted. No radiopaque foreign body noted. Upper abdomen: No abnormality noted. IMPRESSION: Allowing for differences in technique, there is new pulmonary vascular congestion. Mild pulmonary edema not excluded. Area of opacity in the left midlung likely reflects summation shadow with overlying breast. Small infiltrate not completely excluded. ACT 112: Negative or not required by law. Electronically signed by Magali García 09-07-2024 11:07 AM
--- NOTE | 2024-09-07 12:08 | Pharmacy Report ---
Pharmacy Glycemic Short Note 2 - Date of Service September 07, 2024 - Glycemic Short BSG Results (Last 24 hours): 09/06/24 09/06/24 09/06/24 07:30 12:54 14:11 Glucose 258 H POC Glucose 239 H 210 H 09/06/24 09/06/24 09/06/24 15:17 16:07 17:31 Glucose POC Glucose 161 H 127 H 120 H 09/06/24 09/06/24 09/06/24 18:16 19:05 20:57 Glucose POC Glucose 135 H 188 H 94 09/06/24 09/06/24 09/06/24 21:17 21:32 21:47 Glucose POC Glucose 96 91 93 09/06/24 09/06/24 09/07/24 22:03 22:56 00:02 Glucose POC Glucose 111 H 107 H 103 H 09/07/24 09/07/24 09/07/24 01:17 03:22 07:30 Glucose POC Glucose 90 113 H 167 H 09/07/24 11:02 Glucose POC Glucose 280 H OUTPATIENT ANTIDIABETIC REGIMEN: * Metformin 1000 mg PO AM * Ozempic -- on HOLD * Novolog Medtronic 780G insulin pump (per 10/24/23 [facility] visit records) * Average ~200 units of basal daily * Total daily dose ~290-350 units daily * Sensitivity factor: 10 * Carbohydrate ratio: 5 (using preset boluses) * Preset boluses: 25 units with breakfast, 45 units with lunch, and 40 units with dinner * Toujeo 60 units BID PRN pump failure * HbA1c 10.4% (11/15/23) -- updated A1c pending ASSESSMENT: 09/07: * Patient transitioned off insulin drip early this morning. Did have BSGs down to the 90s last night, likely due to high insulin rates. Because of the BSGs below goal, provider held HS basal dose which will cause patient to have higher BSGs today. * Continue with 80 units of basal BID. Patient tolerated this well during previous visit. Novolog started based on previous admission data. * Tolerating diet and remains on abx for pulm infxn. 09/06: * Graciela has been on the insulin drip overnight. Very high rates up to 22.5 units/hr observed over night. Updated labs show no indication of DKA. Remains on 1/2 NS + 20 KCl at 100 mL/hr and Ceftriaxone. Ordered and tolerating a T2DM diet. * Will give basal insulin today. Plan to keep on insulin drip until rates significantly decrease. Tightened goal range on insulin drip today. This was relayed to RN. Please see plan below for transitioning. 09/05: * Ms Mobley is a 74yo diabetic F admitted with COPD exac, RSV, early DKA (pH 7.29, AG 17, CO2 20). * Pt reports that she has not used her insulin pump for the past 4 days d/t inability to get it refilled successfully. * Pt initiated on IV insulin infusion in the ED. Will continue to utilize IV insulin until labs have resolved and pt is able to transition to SQ insulin. May also opt to continue IV insulin infusion until pump may be resumed, if relatively easily managed on insulin gtt. * Pt received 125mg IV SoluMedrol in the ED this afternoon. PLAN FOR INPATIENT GLYCEMIC CONTROL: * Hold outpatient oral diabetes medications * Basal insulin * Lantus 80 units SC BID * Bolus insulin * Accuchecks ACHS * Goal range = 110-140 mg/dL * Correction factor: 8 mg/dL/unit * Carb ratio: 1.5 g/CHO/unit
[2024-09-07] MEDS: FUROSEMIDE 40 MG/4 ML VIAL IV ONE ×2 (12:22→16:05)
--- NOTE | 2024-09-07 13:50 | Hospitalist Progress Note ---
Date of Service September 07, 2024 Assessment & Plan (1) COPD exacerbation: (2) RSV (acute bronchiolitis due to respiratory syncytial virus): (3) DKA, type 2: (4) Atrial fibrillation: (5) Chronic anticoagulation: (6) Coronary artery disease: (7) HTN (hypertension): (8) Dyslipidemia: Plan: 74-year-old female with PMH COPD, asthma, CAD, atrial fibrillation anticoagulated on warfarin, DM II on insulin pump, dyslipidemia, history DVT, neuropathy, prior tobacco use presented to ER with c/o cough, SOB x 4 days. 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 Patient presented with cough, shortness of breath, nausea, vomiting, diarrhea for few days prior to arrival. At presentation, WBC elevated, respiratory viral panel positive for RSV. CXR with no acute finding. Continue with Rocephin and doxycycline, add probiotic. Patient reports feeling better, reports shortness of breath better, Duonebs, budesonide, formoterol nebs Mucinex, incentive spirometry, flutter valve #DKA #Insulin Dependent DM II with insulin pump Not used insulin pump at home for past 4 days as reports couldn't get cartridge in. Hold on home insulin pump at this time A1c: 11.1 on 05/19/24, A1C this admission pending. Random glucose: 555 Glycemic pharmacy on board, changed to s.c insulin Pt tolerating diet well, denies further nausea and vomiting. Monitor and replete electrolytes. #Diarrhea: Reports loose stools 2-3 days ago. No BM last 2 days. Seems resolved. #Elevated troponin #CAD #History chronic RCA occlusion #HTN #Dyslipidemia Acute on chronic diastolic heart failure Demand Ischemia 09/02/24 Echo: EF: 60-64%, grade II diastolic dysfunction, mild , severe mitral annular calcification, no MS, mild MR, no evidence pulmonary HTN Denies CP Troponin: 31.8-->26--1498---2677---3432--> downtredned Echo with EF of 60 to 65%, grade 2 diastolic dysfunction, focal area of akinesis involving the apical inferior wall otherwise normal wall motion. Discussed with cardiology, likely demand ischemia. Continue telemetry monitoring. Continue aspirin, metoprolol succinate, isosorbide, rosuvastatin Given IV Lasix 40 mg 2 doses on September after review of chest x- ray done on same day. 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 Was given Lovenox; currently on Coumadin; INR therapeutic reanged #Depression: Continue home sertraline DVT Prophylaxis: coumadin Admit PCU Full Code as per discussion with pt Time spent evaluating patient, direct bedside care, chart review, placing orders, interpretation of diagnostic studies, discussion with consultants, patient, and family members, as well as other required patient management activities is 50 minutes Please note the above document was generated using voice recognition software. It may contain grammatical, syntax or spelling errors. Any formal questions or concerns about the content, text or information contained within the body of this dictation should be directly addressed to the provider for clarification Admission and Anticipated Discharge Date Admission Date: September 05, 2024 Subjective Patient seen and examined at bedside. She reports that she is feeling significantly better compared to her admission Review of Systems Review of Systems: All systems reviewed & are unremarkable except as noted in Subjective Physical Exam Physical Exam: General:Awake alert oriented x 3. Not in distress Head: normocephalic, atraumatic Eyes: conjunctiva non-injected, anicteric ENT: normal inspection external ears, nose, mucous membranes moist Neck: supple, trachea midline, Lungs: diminished breath sounds throughout with occ bb crackles CV: rrr, +murmur, no pretibial edema Abd: protuberant, normal BS, soft, non-tender Ext: no cyanosis, no calf tenderness Neuro: A&O x 3, no focal deficits noted, normal affect Skin: warm, dry Results & Data Results & Data Vital Signs (Past 12 Hours) Vital Signs Temp Pulse Pulse Resp BP Pulse Ox O2 Del Method 09/07/24 13:32 82 20 94 Nasal Cannula 09/07/24 11:16 36.8 C 89 20 115/67 90 Nasal Cannula 09/07/24 11:09 Nasal Cannula 09/07/24 11:09 86 09/07/24 08:22 145/74 H 09/07/24 07:59 36.8 C 100 H 18 145/74 H 92 Nasal Cannula 09/07/24 07:20 98 H 19 89 L Nasal Cannula 09/07/24 03:44 37 C 88 16 96/58 L 75 L Room Air 09/07/24 01:58 84 18 91 Room Air O2 Flow Rate 09/07/24 13:32 3 09/07/24 11:16 3 09/07/24 11:09 3 09/07/24 11:09 09/07/24 08:22 09/07/24 07:59 2 09/07/24 07:20 2 09/07/24 03:44 09/07/24 01:58 (4) Atrial fibrillation Atrial fibrillation type: unspecified Qualified Code(s): I48.91 - Unspecified atrial fibrillation
[2024-09-07] MEDS: ACETAMINOPHEN 325 MG TAB PO PRN (20:43)
[2024-09-08] MEDS ORDERED: INSULIN ASPART PER UNIT CHARGE SC SCH (08:00)
[2024-09-08] MEDS: LANTUS PER UNIT CHARGE SC SCH ×2 (08:45→21:14)
--- NOTE | 2024-09-08 08:45 | Hospitalist Progress Note ---
Date of Service September 08, 2024 Assessment & Plan (1) COPD exacerbation: (2) RSV (acute bronchiolitis due to respiratory syncytial virus): (3) DKA, type 2: (4) Atrial fibrillation: (5) Chronic anticoagulation: (6) Coronary artery disease: (7) HTN (hypertension): (8) Dyslipidemia: Plan: 74-year-old female with PMH COPD, asthma, CAD, atrial fibrillation anticoagulated on warfarin, DM II on insulin pump, dyslipidemia, history DVT, neuropathy, prior tobacco use presented to ER with c/o cough, SOB x 4 days. 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 Patient presented with cough, shortness of breath, nausea, vomiting, diarrhea for few days prior to arrival. At presentation, WBC elevated, respiratory viral panel positive for RSV. CXR with no acute finding. Continue with Rocephin and doxycycline; tx for kennedi of 5 days. Patient reports feeling better, reports shortness of breath better, Duonebs, budesonide, formoterol nebs Mucinex, incentive spirometry, flutter valve #DKA #Insulin Dependent DM II with insulin pump Not used insulin pump at home for past 4 days as reports couldn't get cartridge in. Hold on home insulin pump at this time A1c: 11.1 on 05/19/24, A1C this admission pending. Random glucose: 555 Glycemic pharmacy on board, changed to s.c insulin Pt tolerating diet well, denies further nausea and vomiting. Monitor and replete electrolytes. Discussed with nurses educator; plan to change to insulin pump on the day of the discharge. clinical systems educator needs to be contacted prior to discharge. #Diarrhea: Reports loose stools 2-3 days ago. No BM last 2 days. Resolved. #Elevated troponin #CAD #History chronic RCA occlusion #HTN #Dyslipidemia Acute on chronic diastolic heart failure Demand Ischemia 09/02/24 Echo: EF: 60-64%, grade II diastolic dysfunction, mild , severe mitral annular calcification, no MS, mild MR, no evidence pulmonary HTN Denies CP Troponin: 31.8-->26--1498---2677---3432--> downtredned Echo with EF of 60 to 65%, grade 2 diastolic dysfunction, focal area of akinesis involving the apical inferior wall otherwise normal wall motion. Discussed with cardiology, likely demand ischemia. Continue telemetry mon itoring. Continue aspirin, metoprolol succinate, isosorbide, rosuvastatin Given IV Lasix 40 mg 2 doses on September after review of chest x- ray done on same day. s/p 20mg lasix on 09/08/2024; started on oral starting 09/09/2024. 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 Was given Lovenox; currently on Coumadin; INR therapeutic reanged #Depression: Continue home sertraline DVT Prophylaxis: coumadin Admit PCU Full Code as per discussion with pt Dispositionawait PT OT evaluation; patient has significant physical deconditioning; may require rehab. Patient and both agreeable. Time spent evaluating patient, direct bedside care, chart review, placing orders, interpretation of diagnostic studies, discussion with consultants, patient, and family members, as well as other required patient management act ivities is 50 minutes Please note the above document was generated using voice recognition software. It may contain grammatical, syntax or spelling errors. Any formal questions or concerns about the content, text or information contained within the body of this dictation should be directly addressed to the provider for clarification Admission and Anticipated Discharge Date Admission Date: September 05, 2024 Subjective Patient seen and examined at bedside. Is comfortable and sitting up on the chair. Her is also at bedside; not in any distress. Vital signs are stable and she is saturating well on 2 L of oxygen by nasal cannula Review of Systems Review of Systems: All systems reviewed & are unremarkable except as noted in Subjective Physical Exam Physical Exam: General:Awake alert oriented x 3. Not in distress Head: normocephalic, atraumatic Eyes: conjunctiva non-injected, anicteric ENT: normal inspection external ears, nose, mucous membranes moist Neck: supple, trachea midline, Lungs: diminished breath sounds throughout with occ bb crackles CV: rrr, +murmur, no pretibial edema Abd: protuberant, normal BS, soft, non-tender Ext: no cyanosis, no calf tenderness Neuro: A&O x 3, no focal deficits noted, normal affect Skin: warm, dry Results & Data Results & Data Vital Signs (Past 12 Hours) Vital Signs Temp Pulse Pulse Resp BP Pulse Ox O2 Del Method 09/08/24 07:52 36.4 C L 78 20 123/70 91 Nasal Cannula 09/08/24 07:34 75 09/08/24 07:29 78 18 92 Nasal Cannula 09/08/24 07:16 Nasal Cannula 09/08/24 03:06 36.8 C 88 20 96/60 L 88 L Nasal Cannula 09/08/24 00:50 89 20 96 Nasal Cannula 09/07/24 23:05 36.7 C 73 20 96/59 L 91 Nasal Cannula 09/07/24 22:23 75 O2 Flow Rate 09/08/24 07:52 3 09/08/24 07:34 09/08/24 07:29 3 09/08/24 07:16 3 09/08/24 03:06 3 09/08/24 00:50 3 09/07/24 23:05 3 09/07/24 22:23 (4) Atrial fibrillation Atrial fibrillation type: unspecified Qualified Code(s): I48.91 - Unspecified atrial fibrillation
[2024-09-08] MEDS: INSULIN ASPART PER UNIT CHARGE SC SCH ×2 (08:46→12:52)
[2024-09-08] MEDS ORDERED: ROSUVASTATIN CALCIUM 20 MG TAB PO SCH (09:00)
[2024-09-08] MEDS ORDERED: LANTUS PER UNIT CHARGE SC SCH (09:00)
[2024-09-08 09:24] LABS: Basophils # (auto) 0.01 K/uL (0.00-0.20); Basophils % (auto) 0.1 %; Eosinophils # (auto) 0.03 K/uL (0.00-0.50); Eosinophils % (auto) 0.3 %; Hemoglobin 11.2 g/dl (12.0-16.0); Immature Granulocytes # (auto) 0.05 K/uL (0.01-0.20); Immature Granulocytes % (auto) 0.6 %; Lymphocytes # (auto) 1.42 K/uL (1.20-3.40); Lymphocytes % (auto) 16.3 %; Mean Corpuscular Hemoglobin 29.4 pg (25.0-34.0); Mean Corpuscular Volume 91.9 fL (80.0-100.0); Mean Platelet Volume 11.3 fL (9.4-12.4); Monocytes # (auto) 0.61 K/uL (0.11-0.59); Neutrophils # (auto) 6.58 K/uL (1.40-6.50); Neutrophils % (auto) 75.7 %; Platelet Count 128 K/uL (130-400); RDW Coefficient of Variation 15.9 % (11.5-14.5); RDW Standard Deviation 53.4 fL (36.4-46.3); Red Blood Count 3.81 M/uL (4.20-5.40)
[2024-09-08 09:39] LABS: BUN Creatinine Ratio 34.7 (10-20); Calcium 7.8 mg/dl (8.6-10.3); Creatinine Clr Calc Pharmacy 54.7 ml/min; Magnesium 2.2 mg/dl (1.7-2.4); Potassium 4.2 mmol/L (3.5-5.1)
[2024-09-08 09:52] LABS: INR 4.1 (0.9-1.1); Prothrombin Time 39.2 Seconds (9.0-12.0)
--- NOTE | 2024-09-08 13:39 | Electrocardiogram Report ---
Test Reason : Blood Pressure : */* mmHG Vent. Rate : 84 BPM Atrial Rate : 84 BPM P-R Int : 142 ms QRS Dur : 98 ms QT Int : 446 ms P-R-T Axes : 75 31 67 degrees QTcB Int : 527 ms Sinus rhythm with Premature atrial complexes Septal infarct , age undetermined Prolonged QT Abnormal ECG When compared with ECG of 05-Sep-2024 09:37, Criteria for Septal infarct is now Present ST no longer depressed in Lateral leads T wave inversion no longer evident in Lateral leads Confirmed by Jaspal Barajas ([id number]) on 09/08/2024 1:38:42 PM Referred By: REFERRED SELF Confirmed By: Jaspal Barajas
[2024-09-08] MEDS: FUROSEMIDE INJ 20 MG/2 ML VIAL IV ONE (14:50)
[2024-09-09] MEDS: ONDANSETRON INJ 2 MG/ML 2 ML VIAL IV PRN (01:43)
[2024-09-09 05:21] LABS: Basophils # (auto) 0.02 K/uL (0.00-0.20); Basophils % (auto) 0.2 %; Eosinophils # (auto) 0.08 K/uL (0.00-0.50); Eosinophils % (auto) 0.9 %; Hematocrit (blood only) 32.4 % (37.0-47.0); Hemoglobin 10.5 g/dl (12.0-16.0); Immature Granulocytes # (auto) 0.04 K/uL (0.01-0.20); Immature Granulocytes % (auto) 0.5 %; Lymphocytes # (auto) 1.75 K/uL (1.20-3.40); Lymphocytes % (auto) 20.7 %; Mean Corpuscular Hemoglobin 29.2 pg (25.0-34.0); Mean Corpuscular Hgb Conc 32.4 g/dL (32.0-36.0); Mean Corpuscular Volume 90.3 fL (80.0-100.0); Mean Platelet Volume 11.4 fL (9.4-12.4); Monocytes # (auto) 0.47 K/uL (0.11-0.59); Monocytes % (auto) 5.6 %; Neutrophils % (auto) 72.1 %; Platelet Count 133 K/uL (130-400); RDW Coefficient of Variation 15.5 % (11.5-14.5); RDW Standard Deviation 51.4 fL (36.4-46.3); Red Blood Count 3.59 M/uL (4.20-5.40); White Blood Count 8.46 K/ul (4.8-10.8)
[2024-09-09 05:32] LABS: BUN Creatinine Ratio 32.1 (10-20); Calcium 8.2 mg/dl (8.6-10.3); Creatinine Clr Calc Pharmacy 65.8 ml/min; Magnesium 2.1 mg/dl (1.7-2.4); Potassium 3.8 mmol/L (3.5-5.1)
[2024-09-09 05:40] LABS: Prothrombin Time 20.8 Seconds (9.0-12.0)
[2024-09-09] MEDS: FUROSEMIDE 20 MG TAB PO SCH (08:16)
[2024-09-09 08:55] LABS: Estimated Average Glucose 303 mg/dl; Hemoglobin A1C 12.2 % (4.5-5.6)
--- NOTE | 2024-09-09 10:59 | Pharmacy Report ---
Pharmacy Glycemic Short Note 2 - Date of Service September 09, 2024 - Glycemic Short BSG Results (Last 24 hours): 09/08/24 09/08/24 09/08/24 11:06 16:47 20:45 Glucose POC Glucose 207 H 197 H 81 09/09/24 09/09/24 09/09/24 01:15 04:22 07:18 Glucose 111 H POC Glucose 111 H 119 H OUTPATIENT ANTIDIABETIC REGIMEN: * Metformin 1000 mg PO AM * Ozempic -- on HOLD * Novolog Medtronic 780G insulin pump (per 10/24/23 [facility] visit records) * Average ~200 units of basal daily * Total daily dose ~290-350 units daily * Sensitivity factor: 10 * Carbohydrate ratio: 5 (using preset boluses) * Preset boluses: 25 units with breakfast, 45 units with lunch, and 40 units with dinner * Toujeo 60 units BID PRN pump failure * HbA1c 10.4% (11/15/23) -- updated A1c pending ASSESSMENT: 09/09: * Graciela received 137 units of insulin yesterday (80 were basal) * Fasting BSG this AM acceptable, will continue current basal regimen at this time. * NovoLog initiated based on prior admissions, however patient was receiving steroids during the previous admission. This likely lead to dinner hypoglycemic episode on 09/07. NovoLog loosened significantly, will keep tighter breakfast parameters due to persistently high lunchtime BSGs. Higher goal range to prevent future hypoglycemic episodes. 09/07: * Patient transitioned off insulin drip early this morning. Did have BSGs down to the 90s last night, likely due to high insulin rates. Because of the BSGs below goal, provider held HS basal dose which will cause patient to have higher BSGs today. * Continue with 80 units of basal BID. Patient tolerated this well during previous visit. Novolog started based on previous admission data. * Tolerating diet and remains on abx for pulm infxn. 09/06: * Graciela has been on the insulin drip overnight. Very high rates up to 22.5 units/hr observed over night. Updated labs show no indication of DKA. Remains on 1/2 NS + 20 KCl at 100 mL/hr and Ceftriaxone. Ordered and tolerating a T2DM diet. * Will give basal insulin today. Plan to keep on insulin drip until rates significantly decrease. Tightened goal range on insulin drip today. This was relayed to RN. Please see plan below for transitioning. 09/05: * Ms Mobley is a 74yo diabetic F admitted with COPD exac, RSV, early DKA (pH 7.29, AG 17, CO2 20). * Pt reports that she has not used her insulin pump for the past 4 days d/t inability to get it refilled successfully. * Pt initiated on IV insulin infusion in the ED. Will continue to utilize IV insulin until labs have resolved and pt is able to transition to SQ insulin. May also opt to continue IV insulin infusion until pump may be resumed, if relatively easily managed on insulin gtt. * Pt received 125mg IV SoluMedrol in the ED this afternoon. PLAN FOR INPATIENT GLYCEMIC CONTROL: * Hold outpatient oral diabetes medications * Basal insulin * Lantus 80 units daily * Correctional Insulin with NOVOLOG per scale QDL, QDD, HS or Q6hrs while NPO * Goal Range: Low 140 mg/dL - High 180 mg/dL * Correction Factor: 30 mg/dL/unit * Nutritional / Prandial insulin per carb ratio of 1 unit per 4 grams CHO consumed * Correctional Insulin with NOVOLOG per scale QDB * Goal Range: Low 140 mg/dL - High 180 mg/dL * Correction Factor: 20 mg/dL/unit * Nutritional / Prandial insulin per carb ratio of 1 unit per 2 grams CHO consumed * Please note that the plan above was derived based on current level of insulin resistance and hospital stress. These recommendations are appropriate for inpatient admission only. Plan of care upon discharge will need to be reassessed to avoid potential outpatient hypo/hyperglycemia. Thank you.
--- NOTE | 2024-09-09 14:20 | Hospitalist Progress Note ---
Date of Service September 09, 2024 Assessment & Plan (1) COPD exacerbation: (2) RSV (acute bronchiolitis due to respiratory syncytial virus): (3) DKA, type 2: (4) Atrial fibrillation: (5) Chronic anticoagulation: (6) Coronary artery disease: (7) HTN (hypertension): (8) Dyslipidemia: Plan: 74-year-old female with PMH COPD, asthma, CAD, atrial fibrillation anticoagulated on warfarin, DM II on insulin pump, dyslipidemia, history DVT, neuropathy, prior tobacco use presented to ER with c/o cough, SOB x 4 days. 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 Patient presented with cough, shortness of breath, nausea, vomiting, diarrhea for few days prior to arrival. At presentation, WBC elevated, respiratory viral panel positive for RSV. CXR with no acute finding. Continue with Rocephin and doxycycline; tx for kennedi of 5 days. Patient reports feeling better, reports shortness of breath better, Duonebs, budesonide, formoterol nebs Mucinex, incentive spirometry, flutter valve #DKA #Insulin Dependent DM II with insulin pump Not used insulin pump at home for past 4 days as reports couldn't get cartridge in. Hold on home insulin pump at this time A1c: 11.1 on 05/19/24, A1C this admission pending. Random glucose: 555 Glycemic pharmacy on board, changed to s.c insulin Pt tolerating diet well, denies further nausea and vomiting. Monitor and replete electrolytes. Discussed with life skills educator; plan to change to insulin pump on the day of the discharge. life educator needs to be contacted prior to discharge. #Diarrhea: Reports loose stools 2-3 days ago. No BM last 2 days. Resolved. #Elevated troponin #CAD #History chronic RCA occlusion #HTN #Dyslipidemia Acute on chronic diastolic heart failure Demand Ischemia 09/02/24 Echo: EF: 60-64%, grade II diastolic dysfunction, mild , severe mitral annular calcification, no MS, mild MR, no evidence pulmonary HTN Denies CP Troponin: 31.8-->26--1498---2677---3432--> downtredned Echo with EF of 60 to 65%, grade 2 diastolic dysfunction, focal area of akinesis involving the apical inferior wall otherwise normal wall motion. Discussed with cardiology, likely demand ischemia. Continue telemetry mon itoring. Continue aspirin, metoprolol succinate, isosorbide, rosuvastatin Given IV Lasix 40 mg 2 doses on September after review of chest x- ray done on same day. s/p 20mg lasix on 09/08/2024; started on oral starting 09/09/2024. 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 Was given Lovenox; currently on Coumadin; INR therapeutic reanged #Depression: Continue home sertraline DVT Prophylaxis: coumadin Admit PCU Full Code as per discussion with pt DispositionPT OT recommended rehab. Patient and family agreeable. Possible DC when bed is a bed Time spent evaluating patient, direct bedside care, chart review, placing orders, interpretation of diagnostic studies, discussion with consultants, patient, and family members, as well as other required patient management activities is 50 minutes Please note the above document was generated using voice recognition software. It may contain grammatical, syntax or spelling errors. Any formal questions or concerns about the content, text or information contained within the body of this dictation should be directly addressed to the provider for clarification Admission and Anticipated Discharge Date Admission Date: September 05, 2024 Subjective Patient seen and examined at bedside She is comfortable; not in distress Reports that her breathing has improved compared to previous days No significant events overnight Review of Systems Review of Systems: All systems reviewed & are unremarkable except as noted in Subjective Physical Exam Physical Exam: General:Awake alert oriented x 3. Not in distress Lungs: diminished breath sounds throughout with occ bb crackles CV: rrr, +murmur, no pretibial edema Abd: protuberant, normal BS, soft, non-tender Ext: no cyanosis, no calf tenderness Neuro: A&O x 3, no focal deficits noted, normal affect Skin: warm, dry Results & Data Results & Data Vital Signs (Past 12 Hours) Vital Signs Temp Pulse Pulse Resp BP Pulse Ox O2 Del Method 09/09/24 12:16 76 18 93 Nasal Cannula 09/09/24 10:41 37.1 C 78 18 119/71 94 Nasal Cannula 09/09/24 07:19 91 H 09/09/24 07:05 84 18 91 Nasal Cannula 09/09/24 03:42 36.6 C 90 18 126/69 95 Nasal Cannula O2 Flow Rate 09/09/24 12:16 1 09/09/24 10:41 1 09/09/24 07:19 09/09/24 07:05 2 09/09/24 03:42 2 (4) Atrial fibrillation Atrial fibrillation type: unspecified Qualified Code(s): I48.91 - Unspecified atrial fibrillation
[2024-09-09] MEDS: WARFARIN SOD 5 MG TAB PO SCH (17:17)
[2024-09-10 05:05] LABS: Basophils # (auto) 0.03 K/uL (0.00-0.20); Basophils % (auto) 0.4 %; Eosinophils % (auto) 2.8 %; Hematocrit (blood only) 30.7 % (37.0-47.0); Hemoglobin 9.9 g/dl (12.0-16.0); Immature Granulocytes # (auto) 0.03 K/uL (0.01-0.20); Immature Granulocytes % (auto) 0.4 %; Lymphocytes # (auto) 1.77 K/uL (1.20-3.40); Lymphocytes % (auto) 25.2 %; Mean Corpuscular Hemoglobin 29.4 pg (25.0-34.0); Mean Corpuscular Hgb Conc 32.2 g/dL (32.0-36.0); Mean Corpuscular Volume 91.1 fL (80.0-100.0); Mean Platelet Volume 11.5 fL (9.4-12.4); Monocytes # (auto) 0.41 K/uL (0.11-0.59); Monocytes % (auto) 5.8 %; Neutrophils # (auto) 4.59 K/uL (1.40-6.50); Neutrophils % (auto) 65.4 %; Platelet Count 136 K/uL (130-400); RDW Coefficient of Variation 15.6 % (11.5-14.5); RDW Standard Deviation 52.2 fL (36.4-46.3); Red Blood Count 3.37 M/uL (4.20-5.40); White Blood Count 7.03 K/ul (4.8-10.8)
[2024-09-10 05:23] LABS: BUN Creatinine Ratio 31.3 (10-20); Calcium 7.8 mg/dl (8.6-10.3); Creatinine Clr Calc Pharmacy 58.2 ml/min
[2024-09-10 05:29] LABS: INR 1.7 (0.9-1.1); Prothrombin Time 17.5 Seconds (9.0-12.0)
--- NOTE | 2024-09-10 11:50 | Pharmacy Report ---
Pharmacy Glycemic Short Note 2 - Date of Service September 10, 2024 - Glycemic Short BSG Results (Last 24 hours): 09/09/24 09/09/24 09/10/24 16:07 20:20 01:26 Glucose POC Glucose 101 H 142 H 90 09/10/24 09/10/24 09/10/24 04:01 07:20 11:15 Glucose 177 H POC Glucose 173 H 237 H OUTPATIENT ANTIDIABETIC REGIMEN: * Metformin 1000 mg PO AM * Ozempic -- on HOLD * Novolog Medtronic 780G insulin pump (per 10/24/23 [facility] visit records) * Average ~200 units of basal daily * Total daily dose ~290-350 units daily * Sensitivity factor: 10 * Carbohydrate ratio: 5 (using preset boluses) * Preset boluses: 25 units with breakfast, 45 units with lunch, and 40 units with dinner * Toujeo 60 units BID PRN pump failure * HbA1c 10.4% (11/15/23) -- updated A1c pending ASSESSMENT: 09/10: * Patient received total of 131 units of insulin yesterday of which 80 units were basal * Fasting BSG 173 mg/dL - discussed with DM educator and patient had BSG overnight of 90 mg/dL and was feeling hypoglycemic, given small snack. Nurse to give a small snack again tonight if feeling hypoglycemic. * Plan to scale back on basal slightly tomorrow since AM Lantus already given. 09/09: * Graciela received 137 units of insulin yesterday (80 were basal) * Fasting BSG this AM acceptable, will continue current basal regimen at this time. * NovoLog initiated based on prior admissions, however patient was receiving steroids during the previous admission. This likely lead to dinner hypoglycemic episode on 09/07. NovoLog loosened significantly, will keep tighter breakfast parameters due to persistently high lunchtime BSGs. Higher goal range to prevent future hypoglycemic episodes. 09/07: * Patient transitioned off insulin drip early this morning. Did have BSGs down to the 90s last night, likely due to high insulin rates. Because of the BSGs below goal, provider held HS basal dose which will cause patient to have higher BSGs today. * Continue with 80 units of basal BID. Patient tolerated this well during previous visit. Novolog started based on previous admission data. * Tolerating diet and remains on abx for pulm infxn. 09/06: * Graciela has been on the insulin drip overnight. Very high rates up to 22.5 units/hr observed over night. Updated labs show no indication of DKA. Remains on 1/2 NS + 20 KCl at 100 mL/hr and Ceftriaxone. Ordered and tolerating a T2DM diet. * Will give basal insulin today. Plan to keep on insulin drip until rates significantly decrease. Tightened goal range on insulin drip today. This was relayed to RN. Please see plan below for transitioning. 09/05: * Ms Mobley is a 74yo diabetic F admitted with COPD exac, RSV, early DKA (pH 7.29, AG 17, CO2 20). * Pt reports that she has not used her insulin pump for the past 4 days d/t inability to get it refilled successfully. * Pt initiated on IV insulin infusion in the ED. Will continue to utilize IV insulin until labs have resolved and pt is able to transition to SQ insulin. May also opt to continue IV insulin infusion until pump may be resumed, if relatively easily managed on insulin gtt. * Pt received 125mg IV SoluMedrol in the ED this afternoon. PLAN FOR INPATIENT GLYCEMIC CONTROL: * Hold outpatient oral diabetes medications * Basal insulin * Lantus 70 units daily * Correctional Insulin with NOVOLOG per scale QDL, QDD, HS or Q6hrs while NPO * Goal Range: Low 140 mg/dL - High 180 mg/dL * Correction Factor: 30 mg/dL/unit * Nutritional / Prandial insulin per carb ratio of 1 unit per 5 grams CHO consumed * Correctional Insulin with NOVOLOG per scale QDB * Goal Range: Low 140 mg/dL - High 180 mg/dL * Correction Factor: 20 mg/dL/unit * Nutritional / Prandial insulin per carb ratio of 1 unit per 2 grams CHO consumed * Please note that the plan above was derived based on current level of insulin resistance and hospital stress. These recommendations are appropriate for inpatient admission only. Plan of care upon discharge will need to be reassessed to avoid potential outpatient hypo/hyperglycemia. Thank you.
--- NOTE | 2024-09-10 15:26 | Hospitalist Progress Note ---
Date of Service September 10, 2024 Assessment & Plan (1) COPD exacerbation: (2) RSV (acute bronchiolitis due to respiratory syncytial virus): (3) DKA, type 2: (4) Atrial fibrillation: (5) Chronic anticoagulation: (6) Coronary artery disease: (7) HTN (hypertension): (8) Dyslipidemia: Plan: 74-year-old female with PMH COPD, asthma, CAD, atrial fibrillation anticoagulated on warfarin, DM II on insulin pump, dyslipidemia, history DVT, neuropathy, prior tobacco use presented to ER with c/o cough, SOB x 4 days. 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 She is being managed for the following: Acute COPD Exacerbation Secondary to RSV Likely superimposed bronchitis Sepsis POA: likely 2/2 RSV URTI, WBC/RR/HR elevated at presentation. --CXR: No acute findings -- BioFire positive for RSV Plan to complete 5-day course of Rocephin, doxycycline Continue Duonebs, budesonide, formoterol Mucinex, incentive spirometry, flutter valve Respiratory status improving Titrate oxygen to keep saturations 88 to 92% Diarrhea resolved Will obtain stool studies if recurrence DKA Insulin Dependent DM II with insulin pump -Not used insulin pump at home for past 4 days as reports couldn't get cartridge in. Hold on home insulin pump at this time HbA1c 12.2 Glycemic pharmacy on board, changed to s.c insulin Monitor and replete electrolytes. postal carrier consulted as well Elevated troponin CAD History chronic RCA occlusion HTN Dyslipidemia Acute on chronic diastolic heart failure Demand Ischemia --ECHO: moderate concentric LVH. EF 60 to 65%. Focal area of akinesis involving the apical inferior wall. Aortic valve moderately calcified. Mild valvular aortic stenosis. Mild mitral, tricuspid regurgitation. Estimated systolic pulmonary pressure 46 mmHg. Grade 2 diastolic dysfunction. Prior hospitalist discussed with cardiology, likely demand ischemia. Continue telemetry monitoring. Continue aspirin, metoprolol succinate, isosorbide, rosuvastatin Received IV Lasix Continue p.o. 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 INR 1.7 today Adjust Coumadin dose as needed continue metoprolol Depression: Continue home sertraline DVT Px: Coumadin Code Status Full Code Disposition: Rehab when accepted Admission and Anticipated Discharge Date Admission Date: September 05, 2024 Subjective Patient is seen and examined at bedside Dyspnea, cough much improved Sitting in chair during my encounter Offers no new complaints Denies any chest pain, nausea, vomiting, abdominal pain Review of Systems Review of Systems: All systems reviewed & are unremarkable except as noted in Subjective Physical Exam Physical Exam: Physical Exam: Vitals signs as noted above General Appearance:Moderately built and nourished, no apparent distress Head: normocephalic, Atraumatic Eyes: normal inspection, EOMI Neck: supple, Trachea midline Respiratory/Chest: Decreased breath sounds, CTA, No accessory muscle use Cardiovascular: S1, S2, + murmur Abdomen/GI:Soft, Non tender, Bowel sounds present Extremities/Musculoskeletal:normal inspection, Trace edema Neurologic/Psych:AAOX3, grossly no focal neurological deficits Skin: normal color, warm Results & Data Results & Data Vital Signs (Past 12 Hours) Vital Signs Temp Pulse Pulse Resp BP BP Pulse Ox 09/10/24 13:47 64 18 91 09/10/24 13:10 96 09/10/24 13:00 62 09/10/24 11:08 36.5 C 65 18 110/64 92 09/10/24 08:30 09/10/24 07:17 36.6 C 71 20 172/75 H 96 09/10/24 07:15 65 09/10/24 07:05 74 20 96 09/10/24 03:42 36.6 C 70 17 103/64 96 O2 Del Method O2 Flow Rate 09/10/24 13:47 Room Air 09/10/24 13:10 Room Air 09/10/24 13:00 09/10/24 11:08 Nasal Cannula 2.0 09/10/24 08:30 Nasal Cannula 2 09/10/24 07:17 Nasal Cannula 2.0 09/10/24 07:15 09/10/24 07:05 Nasal Cannula 2 09/10/24 03:42 Nasal Cannula 2 Laboratory Results Short CBC 09/10/24 Range/Units 04:01 WBC 7.03 (4.8-10.8) K/ul Hgb 9.9 L (12.0-16.0) g/dl Hct 30.7 L (37.0-47.0) % Plt Count 136 (130-400) K/uL BMP 09/10/24 04:01 Sodium 139 Potassium 4.0 Chloride 105 Carbon Dioxide 29 BUN 30 H Creatinine 0.96 Glucose 177 H Calcium 7.8 L (4) Atrial fibrillation Atrial fibrillation type: unspecified Qualified Code(s): I48.91 - Unspecified atrial fibrillation
[2024-09-10] MEDS: WARFARIN SOD 7.5 MG TAB PO SCH (15:28)
[2024-09-10] MEDS ORDERED: WARFARIN SOD 5 MG TAB PO SCH (16:00)
[2024-09-11 06:42] LABS: INR 2.8 (0.9-1.1); Prothrombin Time 27.4 Seconds (9.0-12.0)
[2024-09-11 07:15] VITALS: TEMP 97.7
[2024-09-11] MEDS: LANTUS PER UNIT CHARGE SC SCH (08:22)
[2024-09-11] MEDS: INSULIN ASPART PER UNIT CHARGE SC SCH (11:52)
--- NOTE | 2024-09-11 13:02 | Hospitalist Progress Note ---
Date of Service September 11, 2024 Assessment & Plan (1) COPD exacerbation: (2) RSV (acute bronchiolitis due to respiratory syncytial virus): (3) DKA, type 2: (4) Atrial fibrillation: (5) Chronic anticoagulation: (6) Coronary artery disease: (7) HTN (hypertension): (8) Dyslipidemia: Plan: 74-year-old female with PMH COPD, asthma, CAD, atrial fibrillation anticoagulated on warfarin, DM II on insulin pump, dyslipidemia, history DVT, neuropathy, prior tobacco use presented to ER with c/o cough, SOB x 4 days. 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 She is being managed for the following: Acute COPD Exacerbation Secondary to RSV Likely superimposed bronchitis Sepsis POA: likely 2/2 RSV URTI, WBC/RR/HR elevated at presentation. --CXR: No acute findings -- BioFire positive for RSV Plan to complete 5-day course of Rocephin, doxycycline Continue Duonebs, budesonide, formoterol Mucinex, incentive spirometry, flutter valve Weaned off of supplemental oxygen Saturating well on room air PT OT recommends rehab--patient prefers to be discharged home and does not believe she needs rehab at this time Plan to discharge home today Diarrhea resolved Will obtain stool studies if recurrence DKA Insulin Dependent DM II with insulin pump -Not used insulin pump at home for past 4 days as reports couldn't get cartridge in. Hold on home insulin pump at this time HbA1c 12.2 Glycemic pharmacy on board, changed to s.c insulin Monitor and replete electrolytes. peer educator consulted as well Elevated troponin CAD History chronic RCA occlusion HTN Dyslipidemia Acute on chronic diastolic heart failure Demand Ischemia --ECHO: moderate concentric LVH. EF 60 to 65%. Focal area of akinesis involving the apical inferior wall. Aortic valve moderately calcified. Mild valvular aortic stenosis. Mild mitral, tricuspid regurgitation. Estimated systolic pulmonary pressure 46 mmHg. Grade 2 diastolic dysfunction. Prior hospitalist discussed with cardiology, likely demand ischemia. Continue telemetry monitoring. Continue aspirin, metoprolol succinate, isosorbide, rosuvastatin Received IV Lasix Continue p.o. 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 INR 2.8 today Adjust Coumadin dose as needed continue metoprolol Depression: Continue home sertraline DVT Px: Coumadin Code Status Full Code Disposition: Refused Rehab Home with Admission and Anticipated Discharge Date Admission Date: September 05, 2024 Subjective Patient is seen and examined at bedside Offers no new complaints Prefers to be discharged home today Dyspnea resolved No significant cough Denies any chest pain, nausea, vomiting, abdominal pain Review of Systems Review of Systems: All systems reviewed & are unremarkable except as noted in Subjective Physical Exam Physical Exam: Physical Exam: Vitals signs as noted above General Appearance:Moderately built and nourished, no apparent distress Head: normocephalic, Atraumatic Eyes: normal inspection, EOMI Neck: supple, Trachea midline Respiratory/Chest: Decreased breath sounds, CTA, No accessory muscle use Cardiovascular: S1, S2, + murmur Abdomen/GI:Soft, Non tender, Bowel sounds present Extremities/Musculoskeletal:normal inspection, Trace edema Neurologic/Psych:AAOX3, grossly no focal neurological deficits Skin: normal color, warm Results & Data Results & Data Vital Signs (Past 12 Hours) Vital Signs Temp Pulse Pulse Resp BP BP Pulse Ox 09/11/24 10:45 36.5 C 63 18 108/60 95 09/11/24 07:15 67 09/11/24 07:15 09/11/24 07:14 36.5 C 66 20 130/74 98 09/11/24 06:26 60 18 96 09/11/24 02:58 36.7 C 63 16 100/58 L 97 09/11/24 01:04 68 16 96 O2 Del Method O2 Flow Rate 09/11/24 10:45 Room Air 09/11/24 07:15 09/11/24 07:15 Room Air 09/11/24 07:14 Nasal Cannula 1 09/11/24 06:26 Nasal Cannula 2 09/11/24 02:58 Nasal Cannula 1 09/11/24 01:04 Nasal Cannula 2 (4) Atrial fibrillation Atrial fibrillation type: unspecified Qualified Code(s): I48.91 - Unspecified atrial fibrillation
--- NOTE | 2024-09-11 13:28 | Discharge Summary ---
Date of Service September 11, 2024 Admission HPI Per Admitting Provider Patient is 74-year-old female with PMH COPD, asthma, CAD, atrial fibrillation anticoagulated on warfarin, DM II on insulin pump, dyslipidemia, history DVT, neuropathy, prior tobacco use presented to ER with c/o cough, SOB x 4 days. Patient reports cough productive yellow sputum. Has coughing to point of emesis. Having some nausea past 3 days. States had loose stools 3 days ago but denies BM the past 2 days. States hasn't taken prescription medications including her insulin for past 4 days. Feeling generalized Reports around person that had URI symptoms. Denies known fever, GIL, dizziness, syncope, CP, palpitations, hemoptysis, rhinorrhea, abdominal pain, paresthesias, extremity edema, rashes, dysuria, hematuria. Per outpatient review seen as new patient at [facility] pulmonology on 08/21/2024 was given Augmentin x 21 days, Medrol Dosepak. Was ordered to have new PFTs, however has not been completed yet. 08/21/24 ProBNP: 657 09/02/24 Echo: EF: 60-64%, grade II diastolic dysfunction, mild , severe mitral annular calcification, no MS, mild MR, no evidence pulmonary HTN 08/29/24: CT Chest: 1. Stable sub solid nodule in the right upper lobe and ground-glass nodule in the lingula. No new or enlarging lung nodules. 2. New mild superior endplate deformity of T2 with approximately 30 percent loss of vertebral body height. No retropulsion into the canal. 3. Dilated pulmonary trunk, which can be seen in the setting of pulmonary hypertension. 4. Cirrhosis. Admission Exam Per Admitting Provider General: Ill appearing, obese elderly female Head: normocephalic, atraumatic Eyes: conjunctiva non-injected, anicteric ENT: normal inspection external ears, nose, mucous membranes dry Neck: supple, trachea midline, Lungs: diminished breath sounds throughout with scattered wheezing CV: tachycardia, rate 106, +murmur, no pretibial edema Abd: protuberant, normal BS, soft, non-tender Ext: no cyanosis, no calf tenderness Neuro: A&O x 3, no focal deficits noted, normal affect Skin: warm, dry Principal Diagnosis Acute COPD Exacerbation Respiratory syncytial virus infection Acute bronchitis Sepsis Diabetic ketoacidosis Discharge Data Allergies Allergy/AdvReac Type Severity Reaction Status Date / Time alendronate sodium Allergy Severe DIFFICULTY Verified 09/21/22 22:31 BREATHING/BURNING SENSATION esomeprazole Allergy Intermediate Hives Verified 09/21/22 22:31 Consultations 09/05/24 12:18 ED Decision to Admit Stat 09/05/24 18:47 Consult Cardiology Routine Procedures Performed Laboratory Results WBC 7.03 K/ul (4.8-10.8) 09/10/24 04:01 RBC 3.37 M/uL (4.20-5.40) L 09/10/24 04:01 Hgb 9.9 g/dl (12.0-16.0) L 09/10/24 04:01 Hct 30.7 % (37.0-47.0) L 09/10/24 04:01 MCV 91.1 fL (80.0-100.0) 09/10/24 04:01 MCH 29.4 pg (25.0-34.0) 09/10/24 04:01 MCHC 32.2 g/dL (32.0-36.0) 09/10/24 04:01 RDW Std Deviation 52.2 fL (36.4-46.3) H 09/10/24 04:01 RDW Coeff of Katrin 15.6 % (11.5-14.5) H 09/10/24 04:01 Plt Count 136 K/uL (130-400) 09/10/24 04:01 MPV 11.5 fL (9.4-12.4) 09/10/24 04:01 Immature Gran % (Auto) 0.4 % 09/10/24 04:01 Neut % (Auto) 65.4 % 09/10/24 04:01 Lymph % (Auto) 25.2 % 09/10/24 04:01 [place] % (Auto) 5.8 % 09/10/24 04:01 Eos % (Auto) 2.8 % 09/10/24 04:01 Baso % (Auto) 0.4 % 09/10/24 04:01 Neut # (Auto) 4.59 K/uL (1.40-6.50) 09/10/24 04:01 Lymph # (Auto) 1.77 K/uL (1.20-3.40) 09/10/24 04:01 [place] # (Auto) 0.41 K/uL (0.11-0.59) 09/10/24 04:01 Eos # (Auto) 0.20 K/uL (0.00-0.50) 09/10/24 04:01 Baso # (Auto) 0.03 K/uL (0.00-0.20) 09/10/24 04:01 Immature Gran # (Auto) 0.03 K/uL (0.01-0.20) 09/10/24 04:01 PT 27.4 Seconds (9.0-12.0) H 09/11/24 06:02 INR 2.8 (0.9-1.1) H 09/11/24 06:02 VBG pH 7.31 (7.36-7.41) L 09/06/24 08:59 VBG pCO2 36 mmHg (38-50) L 09/05/24 10:52 VBG pO2 34 mmHg 09/05/24 10:52 VBG HCO3 17 mmol/L 09/05/24 10:52 VBG O2 Saturation < 60.0 % 09/05/24 10:52 VBG Base Excess -8.5 mEq/L 09/05/24 10:52 Sodium 139 mmol/L (136-145) 09/10/24 04:01 Potassium 4.0 mmol/L (3.5-5.1) 09/10/24 04:01 Chloride 105 mmol/L (98-107) 09/10/24 04:01 Carbon Dioxide 29 mmol/L (21-32) 09/10/24 04:01 Anion Gap 5 (3-11) 09/10/24 04:01 BUN 30 mg/dl (6-23) H 09/10/24 04:01 Creatinine 0.96 mg/dl (0.6-1.2) 09/10/24 04:01 Est Cr Clr Drug Dosing 58.2 ml/min 09/10/24 04:01 eGFR 61.70 09/10/24 04:01 BUN/Creatinine Ratio 31.3 (10-20) H 09/10/24 04:01 Glucose 177 mg/dl (70-99(Fasting)) H 09/10/24 04:01 POC Glucose 232 mg/dl (70-99) H 09/11/24 10:54 Estimat Average Glucose 303 mg/dl 02/01/25 07:30 Hemoglobin A1c 12.2 % (4.5-5.6) H 09/06/24 07:30 Calcium 7.8 mg/dl (8.6-10.3) L 09/10/24 04:01 Phosphorus 3.8 mg/dl (2.5-4.9) 09/07/24 06:44 Magnesium 2.1 mg/dl (1.7-2.4) 09/09/24 04:22 Total Bilirubin 1.2 mg/dl (0.2-1.0) H 09/05/24 09:39 AST 20 U/L (13-39) 09/05/24 09:39 ALT 19 U/L (7-52) 09/05/24 09:39 Alkaline Phosphatase 111 U/L (34-104) H 09/05/24 09:39 Troponin I High Sens 1161.2 pg/ml (0-14) H* D 09/07/24 06:44 B-Natriuretic Peptide 647 pg/ml (0-100) H 09/05/24 10:52 Total Protein 7.3 gm/dl (6.0-8.3) 09/05/24 09:39 Albumin 3.6 gm/dl (3.4-5.0) 09/05/24 09:39 Globulin 3.7 gm/dl (2.5-4.0) 09/05/24 09:39 Albumin/Globulin Ratio 1.0 (0.9-2) 09/05/24 09:39 Urine Color Yellow 09/06/24 Unknown Urine Appearance Clear (Clear) 09/06/24 Unknown Urine pH 5.5 (4.5-7.5) 09/06/24 Unknown Ur Specific [place] 1.024 (1.000-1.030) 09/06/24 Unknown Urine Protein Trace (Negative) H 09/06/24 Unknown Urine Glucose (UA) Trace (Negative) H 09/06/24 Unknown Urine Ketones Negative (Negative) 09/06/24 Unknown Urine Blood Negative (Negative) 09/06/24 Unknown Urine Nitrite Negative (Negative) 09/06/24 Unknown Urine Bilirubin Negative (Negative) 09/06/24 Unknown Urine Urobilinogen Negative (Negative) 09/06/24 Unknown Ur Leukocyte Esterase 1+ (Negative) H 09/06/24 Unknown Urine WBC (Auto) 11-20 /hpf (0-5) H 09/06/24 Unknown Urine RBC (Auto) 6-10 /hpf (0-2) H 09/06/24 Unknown U Hyaline Cast (Auto) 3-5 /lpf (0-2) H 09/06/24 Unknown U Epithel Cells (Auto) 6-10 /hpf (0-2) H 09/06/24 Unknown Urine Bacteria (Auto) None Seen (None Seen) 09/06/24 Unknown Urine Yeast Present (None Prsent) A 09/06/24 Unknown Adenovirus (PCR) Not Detected (NotDetected) 09/05/24 09:39 B. pertussis DNA (PCR) Not Detected (NotDetected) 09/05/24 09:39 B.parapertussis DNA PCR Not Detected (NotDetected) 09/05/24 09:39 C. pneumoniae DNA (PCR) Not Detected (NotDetected) 09/05/24 09:39 Coronavirus OC43 (PCR) Not Detected (NotDetected) 09/05/24 09:39 Coronavirus HKU1 (PCR) Not Detected (NotDetected) 09/05/24 09:39 Coronavirus 229E (PCR) Not Detected (NotDetected) 09/05/24 09:39 SARS-CoV-2 (PCR) Not Detected (NotDetected) 09/05/24 09:39 Coronavirus NL63 (PCR) Not Detected (NotDetected) 09/05/24 09:39 Human Metapneumovir PCR Not Detected (NotDetected) 09/05/24 09:39 Influenza Type A (PCR) Not Detected (NotDetected) 09/05/24 09:39 Influenza Type B (PCR) Not Detected (NotDetected) 09/05/24 09:39 M. pneumoniae (PCR) Not Detected (NotDetected) 09/05/24 09:39 Parainfluenza 1 (PCR) Not Detected (NotDetected) 09/05/24 09:39 Parainfluenza 2 (PCR) Not Detected (NotDetected) 09/05/24 09:39 Parainfluenza 3 (PCR) Not Detected (NotDetected) 09/05/24 09:39 Parainfluenza 4 (PCR) Not Detected (NotDetected) 09/05/24 09:39 RSV (PCR) DETECTED (NotDetected) A 09/05/24 09:39 Entero/Rhino (PCR) Not Detected (NotDetected) 09/05/24 09:39 Impressions Chest X-Ray 09/07/24 09:21 EXAM: Radiograph of the Chest 1 View INDICATION: Pulmonary edema. TECHNIQUE: Frontal view of the chest. COMPARISON: 09/05/2024 FINDINGS: Lungs and pleural spaces: Allowing for differences in technique, there is new pulmonary vascular congestion. Mild pulmonary edema not excluded. Area of opacity in the left midlung likely reflects summation shadow with overlying breast. Small infiltrate not completely excluded. No confluent consolidation or visible pleural effusion noted. Heart: Stable large cardiac shadow. Mediastinum: Normal contour. Bones/joints: No fracture, erosion or dislocation. Soft tissues: No abnormality noted. No radiopaque foreign body noted. Upper abdomen: No abnormality noted. IMPRESSION: Allowing for differences in technique, there is new pulmonary vascular congestion. Mild pulmonary edema not excluded. Area of opacity in the left midlung likely reflects summation shadow with overlying breast. Small infiltrate not completely excluded. ACT 112: Negative or not required by law. Electronically signed by Magali García 09-07-2024 11:07 AM Diabetes Follow up Diabetes Follow-up Needed for HgbA1c >9% Hospital Course (1) COPD exacerbation: (2) RSV (acute bronchiolitis due to respiratory syncytial virus): (3) DKA, type 2: (4) Atrial fibrillation: (5) Chronic anticoagulation: (6) Coronary artery disease: (7) HTN (hypertension): (8) Dyslipidemia: 74-year-old female with PMH COPD, asthma, CAD, atrial fibrillation anticoagulated on warfarin, DM II on insulin pump, dyslipidemia, history DVT, neuropathy, prior tobacco use presented to ER with c/o cough, SOB x 4 days. 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 She is being managed for the following: Acute COPD Exacerbation Secondary to RSV Likely superimposed bronchitis Sepsis POA: likely 2/2 RSV URTI, WBC/RR/HR elevated at presentation. --CXR: No acute findings -- BioFire positive for RSV Plan to complete 5-day course of Rocephin, doxycycline Continue Duonebs, budesonide, formoterol Mucinex, incentive spirometry, flutter valve Weaned off of supplemental oxygen Saturating well on room air PT OT recommends rehab--patient prefers to be discharged home and does not be lieve she needs rehab at this time Plan to discharge home today Diarrhea resolved Will obtain stool studies if recurrence DKA Insulin Dependent DM II with insulin pump -Not used insulin pump at home for past 4 days as reports couldn't get cartridge in. Hold on home insulin pump at this time HbA1c 12.2 Glycemic pharmacy on board, changed to s.c insulin Monitor and replete electrolytes. environmental engineer consulted as well Elevated troponin CAD History chronic RCA occlusion HTN Dyslipidemia Acute on chronic diastolic heart failure Demand Ischemia --ECHO: moderate concentric LVH. EF 60 to 65%. Focal area of akinesis involving the apical inferior wall. Aortic valve moderately calcified. Mild valvular aortic stenosis. Mild mitral, tricuspid regurgitation. Estimated systolic pulmonary pressure 46 mmHg. Grade 2 diastolic dysfunction. Prior hospitalist discussed with cardiology, likely demand ischemia. Continue telemetry monitoring. Continue aspirin, metoprolol succinate, isosorbide, rosuvastatin Received IV Lasix Continue p.o. 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 INR 2.8 today Adjust Coumadin dose as needed continue metoprolol Depression: Continue home sertraline DVT Px: Coumadin Code Status Full Code Disposition: Refused Rehab Home with Total Time Total Time Spent Total Time Spent (In Minutes): 55 minutes Discharge Plan Discharge Items Patient Disposition: Home - Home Health Services Reason For Visit: COVID EXAC Discharge Diagnosis: Acute COPD Exacerbation Respiratory syncytial virus infection Acute bronchitis Sepsis Diabetic ketoacidosis Activity: Per Instructions section Exercise/Sports: Gradually increase as tolerated Non-emergency contact: Primary Care Provider Call non-emergency contact if: you have any medication questions, your symptoms worsen, your pain is concerning for you and you have a fever Follow-up/Referrals: Natalia Heller PA-C [Primary Care Provider] - Diet: Carb Consistent or DM2 Addtl Attending Provider Instructions: Follow-up with your primary care physician Natalia Heller PA-C in 1 week Follow-up with Coumadin clinic for monitoring your PT/INR and adjusting Coumadin dose as needed Follow-up with your academic coach in 2 to 3 weeks as recommended --Get blood test(PT/INR) in 2 days and follow-up with Coumadin clinic for further instructions --Complete the antibiotic course doxycycline as prescribed for 2 more days Seek immediate medical attention if your symptoms reoccur or worsen Please take all medications as instructed on discharge list below. Please call if you have any questions or problems. You can reach a [facility] hospitalist on duty at [facility] 24 hours a day by calling [phone] Pending Studies at Discharge: No Stand-Alone Forms: My [facility] Moph[place], Smoking Cessation Medications and DC Order Prescriptions: New doxycycline hyclate 100 mg Capsule 100 mg PO BID Qty: 4 0RF Continued metoprolol succinate 50 mg Tablet Extended Release 24 Hr 50 mg PO BID Qty: 60 1RF pregabalin 150 mg capsule 150 mg PO BID fluticasone propionate [Flonase Allergy Relief] 50 mcg/actuation [place],Suspension 2 spray INTRANASAL QAM metformin 1,000 mg tablet 1,000 mg PO BIDM trazodone 50 mg Tablet 50 mg PO HS warfarin 5 mg tablet 5 mg PO UD Rx Instructions: 10mg on Sun, Tues. 5mg on Mon, Wed, Thur, Fri, Sat nitroglycerin [Nitrostat] 0.3 mg Tablet, Sublingual 0.3 mg sublingual .PRN/UD PRN (Reason: Chest Pain) Rx Instructions: NEDED FOR CHEST PAIN : ONE TABLET UNDER THE TONGUE EVERY 5 MINUTES UP TO THREE DOSES. albuterol sulfate [Ventolin HFA] 90 mcg/actuation Hfa Aerosol Inhaler 2 puff INHALATION QID PRN (Reason: Shortness Of Breath Or Wheezing) sertraline 50 mg Tablet 75 mg PO HS multivitamin [Daily-Moiz] Tablet 1 tab PO QAM Qty: 30 0RF cholecalciferol (vitamin D3) 25 mcg (1,000 unit) Capsule 1,000 unit PO QAM Qty: 30 0RF cyanocobalamin (vitamin B-12) 1,000 mcg Tablet, Sublingual 1,000 mcg SUBLINGUAL DAILY insulin aspart U-100 [Novolog U-100 Insulin aspart] 100 unit/mL solution 0 sliding scale dose continuous subcutaneous infusion .WAITING ON NEW PUMP Rx Instructions: for use with insulin pump,up to 310 units daily rosuvastatin 20 mg tablet 20 mg PO QAM isosorbide mononitrate 60 mg tablet extended release 24 hr 60 mg PO QAM aspirin 81 mg Tablet,Delayed Release (Dr/Ec) 81 mg PO QAM potassium chloride 20 mEq tablet extended release 20 meq PO 3XWK Qty: 30 0RF Rx Instructions: Please take with Lasix on Sunday, Sunday, and Sunday furosemide 20 mg tablet 20 mg PO 3XWK Qty: 30 0RF Rx Instructions: Please take with Potassium Supplement on Sunday, Sunday, and Sunday famotidine 40 mg tablet 40 mg PO DAILY Discontinued amoxicillin-pot clavulanate 875-125 mg tablet 1 tab PO BID Rx Instructions: Prescribed 08/21/24 for 21 day course Discharge Orders: Discharge Order (Routine); Ordered 09/11/24 Ordered By: Daryl Becerra/Other Patient Handouts: High Blood Sugar (Hyperglycemia), Managing Type 2 Diabetes Admission Data Admit Date/Time: 09/05/24 14:29 Attending Provider: Daryl Thomas Admit Provider: Pipo Rosario Primary Care Provider: Natalia Heller Other Providers: [facility]; [place]; Pipo Rosario
[2024-09-11] MEDS ORDERED: GLUCOSE 10 TAB/TUBE PO PRN (15:05)
[2024-09-11] MEDS ORDERED: GLUCAGON FOR INJ 1 MG VIAL SQ PRN (15:05)
[2024-09-11] MEDS ORDERED: CARBOHYDRATES FOR HYPOGLYCEMIA PO PRN (15:05)
[2024-09-11] MEDS ORDERED: DEXTROSE 50% 50 ML SYRINGE IV PRN (15:05)
[2024-09-11] MEDS ORDERED: GLUCOSE 40% GEL 15 GM TUBE PO PRN (15:05)
[2024-09-11 15:50] VITALS: BP 153/81
[2024-09-11] MEDS ORDERED: WARFARIN SOD 5 MG TAB PO SCH (16:00)
[2024-09-11 16:55] VITALS: PULSE 67; RESP 18; O2SAT 94
== END 2024-09-11 17:08 | disposition home health service (06) | DRG 871 ==
LOC: ED 09:28 → 2S 14:00 → SUATTDRO 14:29

== ENCOUNTER 2024-09-26 12:08 | Inpatient (IN) ==
--- NOTE | 2024-09-26 12:39 | Emergency Department Note ---
Impression & Plan Acute diastolic (congestive) heart failure, COPD exacerbation, Acute hypoxic respiratory failure ED Provider Note Provider: Tyler Mei MD CHIEF COMPLAINT: Shortness of breath HISTORY OF PRESENT ILLNESS: Patient is a 74-year-old female past medical history of atrial fibrillation on Coumadin, type 2 diabetes, COPD, hypertension, and heart failure presenting here today reporting developing overnight shortness of breath. No significant cough but a little bit of congestion and sinus drainage. No sore throat or high fevers. States she does not have home breathing medication but has been taking her other medications. Got a little dizzy when trying to get up today and then the breathing was short with exertion thus called EMS. Was found to be hypoxic in the 80s on room air. Denies significant new leg swelling. Denies abdominal pain, nausea, vomiting, or diarrhea. Denies chest pain to me or significant productive cough. Recently hospitalized by her report approximately 2 weeks ago for breathing issues and RSV although she states her breathing this time is not as bad as that. No falls or syncope reported. Did not eat today and states her blood sugars have been little bit lower today. PAST MEDICAL HISTORY: As noted above MEDICATIONS: Reviewed home medications SOCIAL HISTORY: Former smoker PHYSICAL EXAM: GENERAL: alert and oriented in no acute distress on stretcher on nasal cannula oxygen Head: normocephalic and atraumatic EYES: No injection, discharge or icterus. EOMI. NECK: Trachea midline. Good range of motion ENT: Mucous membranes pink and moist. Pharynx without erythema or exudate. LUNGS: Airway patent. No retractions but some tachypnea. Some expiratory wheeze appreciable. No stridor. HEART: Regular rate and rhythm. No chest wall tenderness ABDOMEN: Soft and non-tender, without guarding or rebound. SKIN: Acyanotic, warm, dry, without rashes EXTREMITIES: Without tenderness or deformity with trace bilateral pedal edema. NEUROLOGICAL: No focal deficits moving all extremities. No aphasia. No facial droop or slurred speech. EK bpm normal sinus rhythm. No PVC or PAC. No acute ST segment elevation or depression with QTc 487. CONTINUOUS CARDIAC MONITORING: was ordered and showed a heart rate of 60s to 80s bpm in normal sinus rhythm Patient's laboratory studies and imaging reviewed. Differential includes Reactive airway disease, pneumonia, pneumothorax, COPD, CHF, infections, cardiac ischemia, pulmonary embolism, musculoskeletal, gastrointestinal, as well as other pathologies. IMPRESSION/MEDICAL DECISION MAKING: Patient mildly tachypneic hypoxic on room air. History of COPD as well as cardiac issues including A-fib and CHF. Will double check INR but should be anticoagulated and thus lowers my suspicion for PE. Some mild oxygen supplementation provided and given nebulizer here she is wheezy. Will cover with some IV steroids for reactive airway disease likely in relation to her COPD. Respiratory viral panel is ordered. X-ray ordered to evaluate for pneumonia or signs of fluid overload. Trace to minimal swelling in the legs and lower suspicion at this time for true CHF however. Blood work here today without significant leukocytosis today and stable mild anemia. INR supratherapeutic at 3.6. No skin electrolyte abnormality signs of renal dysfunction. Procalcitonin not elevated. 1 view chest x-ray today per radiology report shows no pneumothorax but questions possibly mild CHF not excluding a basilar pneumonia. Troponin slightly elevated much improved from previous. BNP is more elevated today. Will give extra dose of some IV Lasix to promote diuresis. Do believe there is significant reactive airway component to her symptoms. Given her hypoxia and while she is having improvement with a DuoNeb discussed with her staying for further care here. Hospitalist team contacted. Respiratory viral panel is negative. DIAGNOSIS: Shortness of breath, hypoxia, acute CHF/COPD exacerbation DISPOSITION: Hospitalist will evaluate Patient was agreeable with this plan. Past Med/Surg History Problem List (Updated 09/26/24 @ 19:07 by Stephanie James PA-C) Diabetic polyneuropathy Hyperlipidemia Insulin dependent type 2 diabetes mellitus Depression Chronic atrial fibrillation Supratherapeutic INR Elevated troponin Acute on chronic diastolic heart failure Acute hypoxic respiratory failure Subtherapeutic international normalized ratio (INR) Paroxysmal atrial fibrillation Elevated troponin I level Demand ischemia of myocardium DKA, type 2 (Acute) RSV (acute bronchiolitis due to respiratory syncytial virus) (Acute) COPD exacerbation COVID (Acute) Pseudohyponatremia Hyperkalemia ASCVD (arteriosclerotic cardiovascular disease) Hypertensive urgency Respiratory distress Flash pulmonary edema (Acute) Hypertensive emergency (Acute) Hypotension Hypotension Hypoxia, sleep related UTI due to Klebsiella species HTN (hypertension) Acute exacerbation of congestive heart failure Diastolic heart failure Ankle fracture, bimalleolar, closed Discharge planning issues DVT prophylaxis Anemia Chronic anticoagulation (Chronic) Dyslipidemia (Chronic) Asthma (Chronic) COPD (chronic obstructive pulmonary disease) (Chronic) Brittany-prosthetic fracture around prosthetic knee Congestive heart failure (Chronic) diastolic; LVEF by echo 01/13/20 70% Acute diastolic (congestive) heart failure Hypoxia (Acute) Osteoporosis Diabetes mellitus type 2, uncontrolled Coronary artery disease Atrial fibrillation (Acute) Microvascular angina DM type 2 (diabetes mellitus, type 2) (Chronic) Medical History Benign neoplasm of colon Osteoarthritis History of DVT (deep vein thrombosis) "RLE x 2 in " 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) "Abnormal left breast mammogram 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 Estrogen receptor positive and progesterone receptor positive Status post lumpectomy with sentinel lymph node biopsy stage [id number] 04/07/2015 Status post completion of radiation therapy 07/21/2015 received 6640 cGy" On 07/25/15 17:54 Jayleen Bates wrote "Abnormal left breast mammogram 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 Estrogen receptor positive and progesterone receptor positive Status post lumpectomy with sentinel lymph node biopsy stage [id number] 04/07/2015 Status post completion of radiation therapy 07/21/2015 received 6640 cGy" On 07/25/15 17:49 Jayleen Bates wrote "Abnormal left breast mammogram 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 Estrogen receptor positive and progesterone receptor positive Status post lumpectomy with sentinel lymph node biopsy stage [id number] 04/07/2015" Surgical History H/O partial mastectomy "left breast 04/2015 with lymph node biopsy" H/O arthroscopic knee surgery H/O colonoscopy History of carpal tunnel surgery S/P cervical spinal fusion S/P dilation and curettage H/O vein stripping Family History Other Breast cancer Diabetes Heart disease Social History Smoking Status: Former smoker Tobacco Type: Cigarettes Second Hand Exposure: No; Do You Dip or Chew Tobacco: No; Hx Alcohol Use: No Hx Substance Use: No Preferred Language: Georgian Communication Ability: Effective Director Nicu Required: No Beliefs That Will Affect Care: None Current Living Situation: Family Current Living Situation Comment: lives at home with and step-son Feels Safe at Home: Yes Safety Concerns: Feels Safe At This Time Assistive Devices: Denture - Upper and Walker Allergies Allergies Allergy/AdvReac Type Severity Reaction Status Date / Time alendronate sodium Allergy Severe DIFFICULTY Verified 09/21/22 22:31 BREATHING/BURNING SENSATION esomeprazole Allergy Intermediate Hives Verified 09/21/22 22:31 Home Meds Home Medications Medication Instructions Recorded Confirmed albuterol sulfate 90 mcg/actuation 2 puff inhalation QID PRN 01/12/20 09/26/24 aerosol inhaler (Ventolin HFA) Shortness Of Breath Or Wheezing fluticasone propionate 50 2 spray intranasal QAM 01/12/20 09/26/24 mcg/actuation nasal spray,suspension (Flonase Allergy Relief) metformin 1,000 mg tablet 1,000 mg PO BIDM 01/12/20 09/26/24 nitroglycerin 0.3 mg sublingual 0.3 mg sublingual .PRN/UD PRN 01/12/20 09/26/24 tablet (Nitrostat) Chest Pain pregabalin 150 mg capsule 150 mg PO BID 01/12/20 09/26/24 sertraline 50 mg tablet 75 mg PO HS 01/12/20 09/26/24 trazodone 50 mg tablet 50 mg PO HS 01/12/20 09/26/24 warfarin 5 mg tablet See Rx Instructions .Route .COMPLEX 01/12/20 09/26/24 cyanocobalamin (vitamin B-12) 1,000 mcg sublingual DAILY 09/21/22 09/26/24 1,000 mcg sublingual tablet aspirin 81 mg tablet,delayed 81 mg PO QAM 11/15/23 09/26/24 release insulin aspart U-100 100 unit/mL See Rx Instructions .Route .COMPLEX 11/15/23 09/26/24 subcutaneous solution (Novolog U-100 Insulin aspart) isosorbide mononitrate 60 mg 60 mg PO QAM 11/15/23 09/26/24 tablet,extended release 24 hr rosuvastatin 20 mg tablet 20 mg PO QAM 11/15/23 09/26/24 famotidine 40 mg tablet 40 mg PO DAILY 09/05/24 09/26/24 Previous Rx's Medication Instructions Recorded cholecalciferol (vitamin D3) 25 1,000 unit PO QAM #30 caps 01/19/20 mcg (1,000 unit) capsule multivitamin (Daily-Moiz tablet) 1 tab PO QAM #30 tabs 01/19/20 metoprolol succinate 50 mg 50 mg PO BID #60 tabs 01/23/20 tablet,extended release 24 hr furosemide 20 mg tablet 20 mg PO 3XWK #30 tabs 11/17/23 potassium chloride 20 mEq 20 meq PO 3XWK #30 tabs 11/17/23 tablet,extended release Results & Data (ED) Vital Signs Vital Signs - 24 hr 09/26/24 12:18 09/26/24 12:18 09/26/24 12:19 Temperature 37.0 C Temperature Source Oral Pulse Rate 70 77 79 Pulse Rate [Apical] Pulse Rate from SpO2 Sensor 77 Pulse Rhythm Regular Respiratory Rate 25 H 35 H Respiratory Effort / Characteristics Short of Breath Respiratory Depth Respiratory Pattern Blood Pressure 161/85 H 161/85 H Blood Pressure Mean 110 110 Blood Pressure Position Sitting Pulse Oximetry 97 94 Oxygen Delivery Method Nasal Cannula Nasal Cannula Oxygen Flow Rate 4 4 Sepsis Recent Fever Within 48 Hours No Sepsis New/Unexplained Change in Mental Status N/A Sepsis Action Taken by Nursing No Action Required Oxygen Flow Rate - Titration Pulse Oximetry Post Tiitration 09/26/24 12:29 09/26/24 12:30 09/26/24 12:33 Temperature Temperature Source Pulse Rate 69 Pulse Rate [Apical] Pulse Rate from SpO2 Sensor 69 Pulse Rhythm Respiratory Rate 29 H Respiratory Effort / Characteristics Accessory Muscle Use Labored Respiratory Depth Shallow Respiratory Pattern Tachypnea Blood Pressure 127/67 Blood Pressure Mean 87 Blood Pressure Position Pulse Oximetry 89 L 96 Oxygen Delivery Method Room Air Nasal Cannula Nasal Cannula Oxygen Flow Rate 0 4 4 Sepsis Recent Fever Within 48 Hours Sepsis New/Unexplained Change in Mental Status Sepsis Action Taken by Nursing Oxygen Flow Rate - Titration 4 Pulse Oximetry Post Tiitration 97 09/26/24 12:33 09/26/24 12:46 09/26/24 12:54 Temperature Temperature Source Pulse Rate 68 67 Pulse Rate [Apical] 66 Pulse Rate from SpO2 Sensor 67 Pulse Rhythm Regular Respiratory Rate 22 26 H 25 H Respiratory Effort / Characteristics Spontaneous Respiratory Depth Respiratory Pattern Blood Pressure 115/75 Blood Pressure Mean 88 Blood Pressure Position Pulse Oximetry 97 98 99 Oxygen Delivery Method Nasal Cannula Nasal Cannula Nasal Cannula Oxygen Flow Rate 4 4 4 Sepsis Recent Fever Within 48 Hours Sepsis New/Unexplained Change in Mental Status Sepsis Action Taken by Nursing Oxygen Flow Rate - Titration Pulse Oximetry Post Tiitration 09/26/24 15:00 09/26/24 15:00 Temperature Temperature Source Pulse Rate 72 Pulse Rate [Apical] Pulse Rate from SpO2 Sensor 73 Pulse Rhythm Respiratory Rate 18 Respiratory Effort / Characteristics Respiratory Depth Respiratory Pattern Blood Pressure 126/69 126/69 Blood Pressure Mean 87 88 Blood Pressure Position Pulse Oximetry 94 Oxygen Delivery Method Nasal Cannula Oxygen Flow Rate 4 Sepsis Recent Fever Within 48 Hours Sepsis New/Unexplained Change in Mental Status Sepsis Action Taken by Nursing Oxygen Flow Rate - Titration Pulse Oximetry Post Tiitration Laboratory Data 09/26/24 12:25 09/26/24 12:25 Lab Results 09/26/24 09/26/24 09/26/24 Range/Units 12:25 12:30 14:38 WBC 9.35 (4.8-10.8) K/ul RBC 3.64 L (4.20-5.40) M/uL Hgb 10.7 L (12.0-16.0) g/dl Hct 33.7 L (37.0-47.0) % MCV 92.6 (80.0-100.0) fL MCH 29.4 (25.0-34.0) pg MCHC 31.8 L (32.0-36.0) g/dL RDW Std Deviation 53.3 H (36.4-46.3) fL RDW Coeff of Katrin 15.6 H (11.5-14.5) % Plt Count 193 (130-400) K/uL MPV 11.7 (9.4-12.4) fL Immature Gran % (Auto) 0.5 % Neut % (Auto) 77.6 % Lymph % (Auto) 13.0 % Labette % (Auto) 6.5 % Eos % (Auto) 1.9 % Baso % (Auto) 0.5 % Neut # (Auto) 7.24 H (1.40-6.50) K/uL Lymph # (Auto) 1.22 (1.20-3.40) K/uL [place]ette # (Auto) 0.61 H (0.11-0.59) K/uL Eos # (Auto) 0.18 (0.00-0.50) K/uL Baso # (Auto) 0.05 (0.00-0.20) K/uL Immature Gran # (Auto) 0.05 (0.01-0.20) K/uL PT 35.3 H (9.0-12.0) Seconds INR 3.6 H (0.9-1.1) APTT 32 H (21-31) Seconds PTT Ratio 1.2 Sodium 140 (136-145) mmol/L Potassium 4.4 (3.5-5.1) mmol/L Chloride 105 (98-107) mmol/L Carbon Dioxide 31 (21-32) mmol/L Anion Gap 4 (3-11) BUN 11 (6-23) mg/dl Creatinine 0.70 (0.6-1.2) mg/dl Est Cr Clr Drug Dosing 79.8 ml/min eGFR 90.14 BUN/Creatinine Ratio 15.7 (10-20) Glucose 94 (70-99(Fasting)) mg/dl Calcium 9.0 (8.6-10.3) mg/dl Magnesium 1.7 (1.7-2.4) mg/dl Total Bilirubin 0.5 (0.2-1.0) mg/dl AST 30 (13-39) U/L ALT 20 (7-52) U/L Alkaline Phosphatase 115 H (34-104) U/L Troponin I High Sens 25.6 H 28.4 H (0-14) pg/ml B-Natriuretic Peptide 964 H (0-100) pg/ml Total Protein 7.0 (6.0-8.3) gm/dl Albumin 3.6 (3.4-5.0) gm/dl Globulin 3.4 (2.5-4.0) gm/dl Albumin/Globulin Ratio 1.1 (0.9-2) Procalcitonin 0.06 (0-0.5) ng/ml Adenovirus (PCR) Not Detected (NotDetected) B. pertussis DNA (PCR) Not Detected (NotDetected) B.parapertussis DNA PCR Not Detected (NotDetected) C. pneumoniae DNA (PCR) Not Detected (NotDetected) Coronavirus OC43 (PCR) Not Detected (NotDetected) Coronavirus HKU1 (PCR) Not Detected (NotDetected) Coronavirus 229E (PCR) Not Detected (NotDetected) SARS-CoV-2 (PCR) Not Detected (NotDetected) Coronavirus NL63 (PCR) Not Detected (NotDetected) Human Metapneumovir PCR Not Detected (NotDetected) Influenza Type A (PCR) Not Detected (NotDetected) Influenza Type B (PCR) Not Detected (NotDetected) M. pneumoniae (PCR) Not Detected (NotDetected) Parainfluenza 1 (PCR) Not Detected (NotDetected) Parainfluenza 2 (PCR) Not Detected (NotDetected) Parainfluenza 3 (PCR) Not Detected (NotDetected) Parainfluenza 4 (PCR) Not Detected (NotDetected) RSV (PCR) Not Detected (NotDetected) Entero/Rhino (PCR) Not Detected (NotDetected) Administered Medications Insulin Aspart (Insulin Aspart Per Unit Charge) 0 units SC ACHS RAQUEL Stop: 10/26/24 16:34 Last Admin: 09/26/24 17:32 Dose: 5 units Documented By: AM Co-signed By: Discontinued Medications Albuterol (Albut/Ipratrop 3mg/0.5mg Neb 3 Ml Vial) 12 ml NEB ONE ONE; Protocol Stop: 09/26/24 12:23 Last Admin: 09/26/24 12:46 Dose: 12 ml Documented By: GERARDO Furosemide (Furosemide 40 Mg/4 Ml Vial) 40 mg IV ONE ONE Stop: 09/26/24 13:29 Last Admin: 09/26/24 13:36 Dose: 40 mg Documented By: HARPAL Magnesium Sulfate/Dextrose (Magnesium Sulfate / D5w) 1 gm in 100 mls @ 50 mls/hr IV ONE ONE Stop: 09/26/24 16:16 Last Infusion: 09/26/24 16:59 Dose: Infused Documented By: Admin: 09/26/24 14:39 Dose: 50 mls/hr Documented By: HARPAL Methylprednisolone (Methylprednisolone 125 Mg/2 Ml Vial) 60 mg IV NOW STA Stop: 09/26/24 12:32 Last Admin: 09/26/24 12:40 Dose: 60 mg Documented By: HARPAL Imaging Data Radiologist's Impression: Chest X-Ray 09/26/24 12:22 XR chest 1V portable CLINICAL HISTORY: Dyspnea COMPARISON STUDY: 09/07/2024 FINDINGS: Single view portable chest was again demonstrates cardiomegaly, pulmonary vascular congestion, and prominent interstitial lung markings. There is no sizable pleural effusion. Patchy groundglass airspace opacities are present in both lung bases. IMPRESSION: Mild CHF suspected. Basilar pneumonia not excluded in the appropriate clinical context. ACT 112: Negative or not required by law. Electronically signed by: Rosalind Munoz M.D. 09/26/2024 1:09 PM Discharge Plan Visit Data Chief Complaint: Shortness of Breath/Dyspnea Stated Complaint: SOB ED Provider: Tyler Mei Discharge Problem: Acute diastolic (congestive) heart failure, COPD exacerbation, Acute hypoxic respiratory failure Patient Disposition: Admitted As Inpatient Discharge Instructions Interventions: ED Discharge Assessment Last Done: 09/26/24 15:32
[2024-09-26] MEDS: methylPREDNISolone 125 MG/2 ML VIAL IV STA (12:40)
[2024-09-26] MEDS: ALBUT/IPRATROP 3MG/0.5MG NEB 3 ML VIAL NEB ONE (12:46)
[2024-09-26 12:50] LABS: Basophils # (auto) 0.05 K/uL (0.00-0.20); Basophils % (auto) 0.5 %; Eosinophils # (auto) 0.18 K/uL (0.00-0.50); Eosinophils % (auto) 1.9 %; Hematocrit (blood only) 33.7 % (37.0-47.0); Hemoglobin 10.7 g/dl (12.0-16.0); Immature Granulocytes # (auto) 0.05 K/uL (0.01-0.20); Immature Granulocytes % (auto) 0.5 %; Lymphocytes # (auto) 1.22 K/uL (1.20-3.40); Mean Corpuscular Hemoglobin 29.4 pg (25.0-34.0); Mean Corpuscular Hgb Conc 31.8 g/dL (32.0-36.0); Mean Corpuscular Volume 92.6 fL (80.0-100.0); Mean Platelet Volume 11.7 fL (9.4-12.4); Monocytes # (auto) 0.61 K/uL (0.11-0.59); Monocytes % (auto) 6.5 %; Neutrophils # (auto) 7.24 K/uL (1.40-6.50); Neutrophils % (auto) 77.6 %; Platelet Count 193 K/uL (130-400); RDW Coefficient of Variation 15.6 % (11.5-14.5); RDW Standard Deviation 53.3 fL (36.4-46.3); Red Blood Count 3.64 M/uL (4.20-5.40); White Blood Count 9.35 K/ul (4.8-10.8)
--- NOTE | 2024-09-26 13:01 | Electrocardiogram Report ---
Test Reason : Blood Pressure : */* mmHG Vent. Rate : 78 BPM Atrial Rate : 78 BPM P-R Int : 144 ms QRS Dur : 90 ms QT Int : 428 ms P-R-T Axes : 74 37 2 degrees QTcB Int : 487 ms Normal sinus rhythm Normal ECG When compared with ECG of 06-Sep-2024 10:24, Premature supraventricular complexes are no longer Present Nonspecific T wave abnormality no longer evident in Lateral leads Confirmed by Isaac Man ([id number]) on 09/26/2024 1:00:11 PM Referred By: Confirmed By: Isaac Man
[2024-09-26 13:06] LABS: Albumin Globulin Ratio 1.1 (0.9-2); Albumin Level 3.6 gm/dl (3.4-5.0); BUN Creatinine Ratio 15.7 (10-20); Bilirubin,Total 0.5 mg/dl (0.2-1.0); Creatinine Clr Calc Pharmacy 79.8 ml/min; Globulin 3.4 gm/dl (2.5-4.0); Magnesium 1.7 mg/dl (1.7-2.4); Potassium 4.4 mmol/L (3.5-5.1)
--- NOTE | 2024-09-26 13:10 | XRay Report ---
XR chest 1V portable CLINICAL HISTORY: Dyspnea COMPARISON STUDY: 09/07/2024 FINDINGS: Single view portable chest was again demonstrates cardiomegaly, pulmonary vascular congesti on, and prominent interstitial lung markings. There is no sizable pleural effusion. Patchy groundglas s airspace opacities are present in both lung bases. IMPRESSION: Mild CHF suspected. Basilar pneumonia not excluded in the appropriate clinical context. ACT 112: Negative or not required by law. Electronically signed by: Rosalind Munoz M.D. 09/26/2024 1:09 PM
[2024-09-26 13:12] LABS: Troponin I High Sensitivity 25.6 pg/ml (0-14)
[2024-09-26 13:17] LABS: INR 3.6 (0.9-1.1); Partial Thromboplastin Ratio 1.2; Partial Thromboplastin Time 32 Seconds (21-31); Prothrombin Time 35.3 Seconds (9.0-12.0)
[2024-09-26] MEDS: FUROSEMIDE 40 MG/4 ML VIAL IV ONE (13:36)
[2024-09-26 13:43] LABS: Adenovirus PCR Not Detected (NotDetected); Bordetella parapertussis PCR Not Detected (NotDetected); Bordetella pertussis PCR Not Detected (NotDetected); Chlamydia pneumoniae PCR Not Detected (NotDetected); Coronavirus 229E PCR Not Detected (NotDetected); Coronavirus CoV-2 (COVID19)PCR Not Detected (NotDetected); Coronavirus HKU1 PCR Not Detected (NotDetected); Coronavirus NL63 PCR Not Detected (NotDetected); Coronavirus OC43PCR Not Detected (NotDetected); Human Metapneumovirus PCR Not Detected (NotDetected); Influenza A PCR Not Detected (NotDetected); Influenza B PCR Not Detected (NotDetected); Mycoplasma pneumoniae PCR Not Detected (NotDetected); Parainfluenza Virus 1 PCR Not Detected (NotDetected); Parainfluenza Virus 2 PCR Not Detected (NotDetected); Parainfluenza Virus 3 PCR Not Detected (NotDetected); Parainfluenza Virus 4 PCR Not Detected (NotDetected); Respiratory Syncytial VirusPCR Not Detected (NotDetected); Rhinovirus/Enterovirus PCR Not Detected (NotDetected)
--- NOTE | 2024-09-26 14:14 | History & Physical Report ---
Date of Service September 26, 2024 Assessment & Plan (1) Acute hypoxic respiratory failure: (2) Acute on chronic diastolic heart failure: Plan: Graciela Mobley is a 74y/o F with PMHx significant for insulin-dependent DM type II, diabetic polyneuropathy, PAD, COPD, asthma, chronic A-fib anticoagulated on warfarin, chronic diastolic HF, CAD, history of DVT, vitamin B12 deficiency, GERD without esophagitis, senile osteoporosis, cervical spinal stenosis, prior tobacco use and depression who presented to the ED via EMS with complaint of SOB. Patient recently admitted under our service from 09/05/24 to 09/11/24. She was managed for the following: acute COPD exacerbation with sepsis 2/2 superimposed bronchitis ISO RSV infection, DKA and acute on chronic diastolic HF. Successfully weaned off of supplemental O2 prior to discharge. PT/OT had recommended rehab on discharge however patient preferred to be discharged home with services. Resting echocardiogram from 09/06/24 revealed LVEF of 60 to 65%, moderate concentric LVH, focal area of akinesis involving the apical inferior wall otherwise normal wall motion, moderately calcified AV, mild valvular , mild MR, mild TR and grade II DD. Patient been doing well at home following discharge on 09/11/24 up until last evening when she started to develop SOB - notably worse with exertion. Was found to be saturating in the low 80s SpO2 on RA by EMS. Had to initially be placed on 10L nonrebreather en route to ED. Now de-escalated to 4L NC at time of evaluation and saturating in the mid 90s SpO2. ED labs personally reviewed. Respiratory BioFire panel negative. UA negative. Procalcitonin negative. S/p hour-long Duoneb, 40mg IV Lasix and 60mg IV Solu-Medrol in the ED. Patient feels breathing is improving. Weight was 96.8kg on 09/11/24. Weight today is 97.976kg. Noted about 2.6lb weight gain. + Trace BLE edema. BNP 964. CXR with cardiomegaly, pulmonary vascular congestion and prominent interstitial lung markings. No evidence of pleural effusion. Did check BLE venous Doppler ultrasound due to BLE swelling which was negative. Hold home po Lasix ISO active IV diuresis. Acute hypoxic respiratory failure 2/2 acute on chronic diastolic CHF ISO underlying COPD and asthma. Wean O2 as able. FR of 2L/daily. Fall precautions. Continue 40mg IV Lasix daily starting tomorrow AM. Replete electrolytes PRN to keep K>4 and Mag>2. Cardiology consult pending. Daily weights, strict I&Os. (3) Elevated troponin: Plan: Suspect demand ischemia ISO above. EKG reassuring. Continue to trend troponin Q6H for now. EKG daily x 2. EKG with chest pain PRN. (4) Supratherapeutic INR: (5) Chronic atrial fibrillation: Plan: INR 3.6 on admission. Hold warfarin for now. Repeat PT/INR in AM. Adjust warfarin dose PRN. Continue metoprolol succinate. Continue telemetry monitoring. (6) COPD (chronic obstructive pulmonary disease): Plan: Suspect wheezing on arrival to ED 2/2 pulmonary congestion rather than COPD exacerbation. No wheezing heard at the time of our evaluation in the ED. No leukocytosis. Procalcitonin negative. Utilize PRN Duonebs for SOB/wheezing. (7) Depression: Plan: Chronic, stable. Continue Zoloft. (8) Diabetic polyneuropathy: (9) Insulin dependent type 2 diabetes mellitus: Plan: Hgb A1c 12.2% last admission. Uncontrolled insulin-dependent DMII. Also on m etformin. 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 Continue Lyrica. Has insulin pump at home. BSG stable on admission. Basal/bolus SQ regimen while inpatient. Glycemic pharmacy to assist with management. (10) HTN (hypertension): Plan: BP stable on admission. Continue metoprolol. Continue close BP monitoring. (11) Hyperlipidemia: (12) Coronary artery disease: Plan: Chronic, stable. Continue ASA, Imdur and rosuvastatin. (13) GERD (gastroesophageal reflux disease): Plan: Chronic, stable. Continue Pepcid. 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 Code Status: FULL CODE PCP: Natalia Heller PA-C Disposition: Admit to PCU/Telemetry for further inpatient evaluation and management. Patient seen in collaboration with Dr. Garzon. Please see addendum. I spent a total of 70 minutes coordinating, documenting, and providing care for this patient excluding time spent in the performance of separately billed services or time spent by another provider/QHP. This included personally reviewing all current laboratories and imaging studies, medical reconciliation, outpatient chart review and discussion with specialists. This chart was completed in part utilizing Speech Voice Recognition Software. Grammatical errors, random word insertions, pronoun errors, and incomplete sentences are an occasional consequence of this system due to software limitations, ambient noise, and hardware issues. Any formal questions or concerns about the content, text, or information contained within the body of this dictation should be directly addressed to the provider for clarification. History of Present Illness Chief Complaint: SOB Primary Care Provider: JACINTO Gaitan Itz is a 74y/o F with PMHx significant for insulin-dependent DM type II, diabetic polyneuropathy, PAD, COPD, asthma, chronic A-fib anticoagulated on warfarin, chronic diastolic HF, CAD, history of DVT, vitamin B12 deficiency, GERD without esophagitis, senile osteoporosis, cervical spinal stenosis, prior tobacco use and depression who presented to the ED via EMS with complaint of SOB. History obtained from the patient, discussion with the ED provider and associated chart review. Patient seen at bedside in ED with Patient recently admitted under our service from 09/05/24 to 09/11/24. She was managed for the following: acute COPD exacerbation with sepsis 2/2 superimposed bronchitis ISO RSV infection, DKA and acute on chronic diastolic HF. Successfully weaned off of supplemental O2 prior to discharge. PT/OT had recommended rehab on discharge however patient preferred to be discharged home with services. Resting echocardiogram from 09/06/24 revealed LVEF of 60 to 65%, moderate concentric LVH, focal area of akinesis involving the apical inferior wall otherwise normal wall motion, moderately calcified AV, mild valvular , mild MR, mild TR and grade II DD. Patient been doing well at home following discharge on 09/11/24 up until last evening when she started to develop SOB - notably worse with exertion. Was found to be saturating in the low 80s SpO2 on RA by EMS. Had to initially be placed on 10L nonrebreather en route to ED. Now de-escalated to 4L NC at time of evaluation and saturating in the mid 90s SpO2. CXR with cardiomegaly, pulmonary vascular congestion and prominent interstitial lung markings. No evidence of pleural effusion. S/p hour-long Duoneb, 40mg IV Lasix and 60mg IV Solu-Medrol in the ED. Patient feels breathing is improving. Denies any cough or chest pain. No reported fevers. Denies any chills or body aches. Weight was 96.8kg on 09/11/24. Weight today is 97.976kg. Noted about 2.6lb weight gain. Notes compliance with medications at home, including warfarin. Denies any urinary or bowel habit issues. Did get slightly dizzy whilst trying to stand up at home earlier this morning due to her noted SOB with exertion. No reported falls, trauma or syncopal events. Appetite good. Has not noticed any increase in BLE swelling. ED labs personally reviewed. Respiratory BioFire panel negative. UA negative. Procalcitonin negative. Mild troponin elevation. BNP 964. INR supratherapeutic at 3.6. Allergies Allergy/AdvReac Type Severity Reaction Status Date / Time alendronate sodium Allergy Severe DIFFICULTY Verified 09/21/22 22:31 BREATHING/BURNING SENSATION esomeprazole Allergy Intermediate Hives Verified 09/21/22 22:31 Home Medications Medication Instructions Recorded Confirmed Type albuterol sulfate 90 mcg/actuation 2 puff inhalation QID PRN 01/12/20 09/26/24 History aerosol inhaler (Ventolin HFA) Shortness Of Breath Or Wheezing fluticasone propionate 50 2 spray intranasal QAM 01/12/20 09/26/24 History mcg/actuation nasal spray,suspension (Flonase Allergy Relief) metformin 1,000 mg tablet 1,000 mg PO BIDM 01/12/20 09/26/24 History nitroglycerin 0.3 mg sublingual 0.3 mg sublingual .PRN/UD PRN 01/12/20 09/26/24 History tablet (Nitrostat) Chest Pain pregabalin 150 mg capsule 150 mg PO BID 01/12/20 09/26/24 History sertraline 50 mg tablet 75 mg PO HS 01/12/20 09/26/24 History trazodone 50 mg tablet 50 mg PO HS 01/12/20 09/26/24 History warfarin 5 mg tablet See Rx Instructions .Route .COMPLEX 01/12/20 09/26/24 History cholecalciferol (vitamin D3) 25 1,000 unit PO QAM #30 caps 01/19/20 09/26/24 Rx mcg (1,000 unit) capsule multivitamin (Daily-Moiz tablet) 1 tab PO QAM #30 tabs 01/19/20 09/26/24 Rx metoprolol succinate 50 mg 50 mg PO BID #60 tabs 01/23/20 09/26/24 Rx tablet,extended release 24 hr cyanocobalamin (vitamin B-12) 1,000 mcg sublingual DAILY 09/21/22 09/26/24 History 1,000 mcg sublingual tablet aspirin 81 mg tablet,delayed 81 mg PO QAM 11/15/23 09/26/24 History release insulin aspart U-100 100 unit/mL See Rx Instructions .Route .COMPLEX 11/15/23 09/26/24 History subcutaneous solution (Novolog U-100 Insulin aspart) isosorbide mononitrate 60 mg 60 mg PO QAM 11/15/23 09/26/24 History tablet,extended release 24 hr rosuvastatin 20 mg tablet 20 mg PO QAM 11/15/23 09/26/24 History furosemide 20 mg tablet 20 mg PO 3XWK #30 tabs 11/17/23 09/26/24 Rx potassium chloride 20 mEq 20 meq PO 3XWK #30 tabs 11/17/23 09/26/24 Rx tablet,extended release famotidine 40 mg tablet 40 mg PO DAILY 09/05/24 09/26/24 History Past Med/Surg History Problem List GERD (gastroesophageal reflux disease) Diabetic polyneuropathy Hyperlipidemia Insulin dependent type 2 diabetes mellitus Depression Chronic atrial fibrillation Supratherapeutic INR Elevated troponin Acute on chronic diastolic heart failure Acute hypoxic respiratory failure Subtherapeutic international normalized ratio (INR) Paroxysmal atrial fibrillation Elevated troponin I level Demand ischemia of myocardium DKA, type 2 (Acute) RSV (acute bronchiolitis due to respiratory syncytial virus) (Acute) COPD exacerbation COVID (Acute) Pseudohyponatremia Hyperkalemia ASCVD (arteriosclerotic cardiovascular disease) Hypertensive urgency Respiratory distress Flash pulmonary edema (Acute) Hypertensive emergency (Acute) Hypotension Hypotension Hypoxia, sleep related UTI due to Klebsiella species HTN (hypertension) Acute exacerbation of congestive heart failure Diastolic heart failure Ankle fracture, bimalleolar, closed Discharge planning issues DVT prophylaxis Anemia Chronic anticoagulation (Chronic) Dyslipidemia (Chronic) Asthma (Chronic) COPD (chronic obstructive pulmonary disease) (Chronic) Brittany-prosthetic fracture around prosthetic knee Congestive heart failure (Chronic) diastolic; LVEF by echo 01/13/20 70% Acute diastolic (congestive) heart failure Hypoxia (Acute) Osteoporosis Diabetes mellitus type 2, uncontrolled Coronary artery disease Atrial fibrillation (Acute) Microvascular angina DM type 2 (diabetes mellitus, type 2) (Chronic) Medical History Benign neoplasm of colon Osteoarthritis History of DVT (deep vein thrombosis) "RLE x 2 in " 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) "Abnormal left breast mammogram 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 Estrogen receptor positive and progesterone receptor positive Status post lumpectomy with sentinel lymph node biopsy stage [id number] 04/07/2015 Status post completion of radiation therapy 07/21/2015 received 6640 cGy" On 07/25/15 17:54 Jayleen Bates wrote "Abnormal left breast mammogram 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 Estrogen receptor positive and progesterone receptor positive Status post lumpectomy with sentinel lymph node biopsy stage [id number] 04/07/2015 Status post completion of radiation therapy 07/21/2015 received 6640 cGy" On 07/25/15 17:49 Jayleen Bates wrote "Abnormal left breast mammogram 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 Estrogen receptor positive and progesterone receptor positive Status post lumpectomy with sentinel lymph node biopsy stage [id number] 04/07/2015" Surgical History H/O partial mastectomy "left breast 04/2015 with lymph node biopsy" H/O arthroscopic knee surgery H/O colonoscopy History of carpal tunnel surgery S/P cervical spinal fusion S/P dilation and curettage H/O vein stripping Family History Other Breast cancer Diabetes Heart disease Social History Smoking Status: Former smoker Tobacco Type: Cigarettes Second Hand Exposure: No; Do You Dip or Chew Tobacco: No; Hx Alcohol Use: No Hx Substance Use: No Preferred Language: Maltese Communication Ability: Effective Welt Sole Layer Required: No Beliefs That Will Affect Care: None Current Living Situation: Family Current Living Situation Comment: lives at home with and step-son Feels Safe at Home: Yes Safety Concerns: Feels Safe At This Time Assistive Devices: Denture - Upper and Walker Review of Systems Review of Systems: At least ten systems reviewed and negative, except as noted in the HPI. Physical Exam Physical Exam: Please refer to Dr. Garzon's addendum for physical examination findings. Results & Data Results & Data Vital Signs (Past 12 Hours) Vital Signs Temp Pulse Pulse Resp BP Pulse Ox O2 Del Method 09/26/24 12:54 67 25 H 115/75 99 Nasal Cannula 09/26/24 12:46 66 26 H 98 Nasal Cannula 09/26/24 12:33 68 22 97 Nasal Cannula 09/26/24 12:33 Nasal Cannula 09/26/24 12:30 69 29 H 127/67 96 Nasal Cannula 09/26/24 12:29 89 L Room Air 09/26/24 12:19 79 09/26/24 12:18 77 35 H 161/85 H 94 Nasal Cannula 09/26/24 12:18 37.0 C 70 25 H 161/85 H 97 Nasal Cannula O2 Flow Rate 09/26/24 12:54 4 09/26/24 12:46 4 09/26/24 12:33 4 09/26/24 12:33 4 09/26/24 12:30 4 09/26/24 12:29 0 09/26/24 12:19 09/26/24 12:18 4 09/26/24 12:18 4 Laboratory Results Short CBC 09/26/24 Range/Units 12:25 WBC 9.35 (4.8-10.8) K/ul Hgb 10.7 L (12.0-16.0) g/dl Hct 33.7 L (37.0-47.0) % Plt Count 193 (130-400) K/uL BMP 09/26/24 12:25 Sodium 140 Potassium 4.4 Chloride 105 Carbon Dioxide 31 BUN 11 Creatinine 0.70 Glucose 94 Calcium 9.0 Liver Function 09/26/24 Range/Units 12:25 Total Bilirubin 0.5 (0.2-1.0) mg/dl AST 30 (13-39) U/L ALT 20 (7-52) U/L Alkaline Phosphatase 115 H (34-104) U/L Albumin 3.6 (3.4-5.0) gm/dl Urine 09/26/24 Range/Units Unknown Urine Color Yellow Urine Appearance Clear (Clear) Urine pH 6.0 (4.5-7.5) Ur Specific Hester 1.009 (1.000-1.030) Urine Protein Negative (Negative) Urine Glucose (UA) Negative (Negative) Diagnostic Findings Chest X-Ray 09/26/24 12:22 XR chest 1V portable CLINICAL HISTORY: Dyspnea COMPARISON STUDY: 09/07/2024 FINDINGS: Single view portable chest was again demonstrates cardiomegaly, pulmonary vascular congestion, and prominent interstitial lung markings. There is no sizable pleural effusion. Patchy groundglass airspace opacities are present in both lung bases. IMPRESSION: Mild CHF suspected. Basilar pneumonia not excluded in the appropriate clinical context. ACT 112: Negative or not required by law. Electronically signed by: Rosalind Munoz M.D. 09/26/2024 1:09 PM Venous Doppler Study 09/26/24 15:05 Examination: Doppler venous ultrasound of the lower extremity Comparison: None Technique: Grayscale evaluation with compression, spectral flow, and color Doppler assessment of the deep venous system of the leg, from the groin to the knee, as well as the lower leg Findings: The external iliac, common femoral, femoral, popliteal, and posterior tibial veins demonstrate normal compressibility and blood flow. Impression: No evidence for DVT of the bilateral lower extremity Electronically signed by Isaac Heath 09-26-2024 4:31 PM Medications Administered Insulin Aspart (Insulin Aspart Per Unit Charge) 0 units SC ACHS RAQUEL Stop: 10/26/24 16:34 Last Admin: 09/26/24 17:32 Dose: 5 units Documented By: AM Co-signed By: Discontinued Medications Albuterol (Albut/Ipratrop 3mg/0.5mg Neb 3 Ml Vial) 12 ml NEB ONE ONE; Protocol Stop: 09/26/24 12:23 Last Admin: 09/26/24 12:46 Dose: 12 ml Documented By: GERARDO Furosemide (Furosemide 40 Mg/4 Ml Vial) 40 mg IV ONE ONE Stop: 09/26/24 13:29 Last Admin: 09/26/24 13:36 Dose: 40 mg Documented By: HARPAL Magnesium Sulfate/Dextrose (Magnesium Sulfate / D5w) 1 gm in 100 mls @ 50 mls/hr IV ONE ONE Stop: 09/26/24 16:16 Last Infusion: 09/26/24 16:59 Dose: Infused Documented By: Admin: 09/26/24 14:39 Dose: 50 mls/hr Documented By: HARPAL Methylprednisolone (Methylprednisolone 125 Mg/2 Ml Vial) 60 mg IV NOW STA Stop: 09/26/24 12:32 Last Admin: 09/26/24 12:40 Dose: 60 mg Documented By: HARPAL Code Status & VTE Plan Code Status FULL CODE Supervising Physician Co-Signing Physician Notes Pt seen and examined by me , care coordinated w/ JACINTO, as above, pls refer to her note for further detail. 74y/o F with significant for insulin-dependent DM type II, diabetic polyneuropathy, PAD, COPD, asthma, chronic A-fib anticoagulated on warfarin, chronic diastolic HF, CAD, history of DVT, vitamin B12 deficiency, GERD without esophagitis, senile osteoporosis, cervical spinal stenosis, prior tobacco use and depression who presented to the ED via EMS with complaint of SOB. Patient recently hospitalized from 09/05/24 to 09/11/24 for acute COPD exacerbation secondary to RSV infection, DKA and acute on chronic diastolic HF. Successfully weaned off of supplemental O2 prior to discharge. CXR in ED with cardiomegaly, pulmonary vascular congestion and prominent interstitial lung markings.Received hour-long Duoneb, 40mg IV Lasix and 60mg IV Solu-Medrol in the ED. Patient feels breathing is improving. She is still using suppl. O2 , 4L. She is awake, alert but appears tired and ill. Speech fluent, answers appropriately, Lungs clear without wheezing (wheezing however reported by ED provider on exam earlier), heart sounds regular, + murmur, abdomen soft, nontender. Pt is moving extremities, LLE calf slightly bigger than right, but no significant edema in general. BioFire panel negative. UA negative. Procalcitonin negative. Mild troponin elevation. BNP 964. INR 3.6. Will admit to tele, obtain doppler of LLE. Cont current management w/ IV daily lasix, prn duonebs, close monitoring, cardiology consult. MD Ryann (6) COPD (chronic obstructive pulmonary disease) COPD type: unspecified COPD Qualified Code(s): J44.9 - Chronic obstructive pulmonary disease, unspecified (7) Depression Depression Type: unspecified Qualified Code(s): F32.A - Depression, unspecified (8) Diabetic polyneuropathy Diabetes mellitus type: type 2 Qualified Code(s): E11.42 - Type 2 diabetes mellitus with diabetic polyneuropathy (10) HTN (hypertension) Hypertension type: unspecified Qualified Code(s): I10 - Essential (primary) hypertension (11) Hyperlipidemia Hyperlipidemia type: unspecified Qualified Code(s): E78.5 - Hyperlipidemia, unspecified (12) Coronary artery disease Associated angina: unspecified whether angina present Coronary Disease- Associated Artery/Lesion type: unspecified vessel or lesion type [place] vs. transplanted heart: [place] heart Qualified Code(s): I25.10 - Atherosclerotic heart disease of [place] coronary artery without angina pectoris (13) GERD (gastroesophageal reflux disease) Esophagitis presence: esophagitis presence not specified Qualified Code(s): K21.9 - Gastro-esophageal reflux disease without esophagitis
[2024-09-26] MEDS: MAGNESIUM SULFATE / D5W 1 GM/100 ML BAG IV ONE (14:39)
--- OUTSIDE RECORDS SUMMARY | 2024-09-26 16:06 | External Medical Summary | Summary of Care ---
Author Name Unknown Organization [facility] Address [address] [facility] [facility] [address] Phone [phone] Care Team Providers Care Scouring Train Operator Chief Name Role Phone Natalia Heller PA-C Primary Care Provider [phone] Reason for Visit * Reason Onset Date Comments Nurse Documentation 09/23/2024 Encounter Details Date Type Department Care Team (Late st Contact Info) Description 09/23/2024 Telephone [facility] [address] [place] [address] Alfa Jaramillo MD [address] [place] [address] Nurse Documentation Allergies Active Allergy Reactions Criticality Noted Date Comments Alendronate Sodium 06/24/2012 Burning sensation and difficulty breathing Proton Pump Inhibitors Hives 02/20/2002 nexium documented as of this encounter (statuses as of 09/23/2024) Medications Multiple Vitamin (DAILY VALUE MULTIVITAMIN) Tablet Take 1 Tablet by mouth in the morning. Active Fluticasone Propionate 50 MCG/ACT Nasal Suspension (Flonase)Indicatio ns:Chronic rhinitis Administer 2 Sprays into each nostril in the morning. 16 g 1 11/02/19 23 Active Accu-Chek Guide Me w/Device KitIndications:Typ e 2 diabetes mellitus with foot ulcer, with long-term current use of insulin (HCC),DM (diabetes mellitus) type II, controlled, with peripheral vascular disorder ([facility]) Use as directed. 10/04/19 24 Active Accu-Chek Softclix LancetsIndications :Type 2 diabetes mellitus with foot ulcer, with long-term current use of insulin ([facility]),DM (diabetes mellitus) type II, controlled, with peripheral vascular disorder ([facility]) Use to test blood glucose [...] skin. 310 units in pump. Getting from [employer] PAP Active Aspirin 81 MG Oral Tablet Delayed Release Take 1 Tablet by mouth in the morning. 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 Active Furosemide 20 MG Oral Tablet (Lasix) Take 1 Tablet by mouth once a day on Sunday, Sunday, and Sunday only. 45 Tablet 3 09/17/2024 7:59 AM EST 09/12/19 25 Active Famotidine 40 MG Oral Tablet (Pepcid)Indication s:Gastro-esophagea l reflux disease without esophagitis Take 1 Tablet by mouth in the morning. 30 Tablet 1 09/17/2024 7:59 AM EST 09/12/19 25 Active Accu-Chek Guide Test In Vitro Strip (Glucose Blood) Use to test bg up to 4 times a day 800 Strip 1 09/19/2024 3:05 PM EST 09/12/19 25 Active Accu-Chek Adri Plus w/Device Kit Use to check bg 1 Kit 1 09/19/2024 3:05 PM EST 09/12/19 25 Active Hospital, Clinic, or Other Facility Administered Medication Ordered Dose Route Frequency Start Date End Date Status Albuterol Sulfate (Proventil) (2.5 MG/3ML) 0.083% inhalation solution 2.5 mgIndications:COPD with exacerbation (HCC),SOB (shortness of breath),Asthma with COPD (chronic obstructive pulmonary disease) (HCC) 2.5 mg NEBULIZER PRN 08/21/2024 08/21/2025 Active documented as of this encounter (statuses as of 09/23/2024) Active Problems Problem Noted Date Diagnosed Date [...] artery disease of n ative artery of enterprise heart with stable angina pectoris 12/08/2020 Assessment [...] as of this encounter (statuses as of 09/23/2024) Resolved Problems Problem Noted Date Diagnosed Date [...] as of this encounter (statuses as of 09/23/2024) Immunizations Name Administration Dates Next Due COVID-19 mRNA, LNP-s, No Pre serve, 2-Dose Series (Moderna) 10/13/2020,09/15/2020 COVID-19, mRNA, LNP-s, PF, B ooster, 100mcg/0.5mg (Moderna) 07/20/2021 Covid-19, Mrna, Lnp-s, Pf, B ivalent, 30 Mcg, IM, 12 yrs and above (GenePeeks) 05/08/2022 Pneumococcal Conjugate Vacc, 13 Valent (Prevnar) [...] ages 0-17 years) Not on file 11/19/2023 Food Insecurity Answer Date Recorded Within the past 12 months, y ou worried that your food would run out before you got the money to buy more. Never true 11/19/19 24 Within the past 12 months, t he food you bought just didn't last and you didn't have money to get more. Never true 11/19/2023 Do you need food for this week? 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 Not on f ile Not on file [...] encounter Miscellaneous Notes * Telephone Encounter - Marilin Perkins MED ASSIST - 09/23/2024 10:05 AM EST Received Fax for BFPROVIDERS: Dr. Alfa Jaramillo ORDER received from [facility] Healthcare [facility] and FAXED documented in this encounter Plan of Treatment Upcoming Encounters Date Type Department Care Team (Late st Contact Info) Description 09/25/2024 1:00 PM EST [facility] [address] [address] Radu Suazo PA-C [address] [place] [address] 09/30/2024 9:20 AM EST Office Visit [facility] [address] [phone] Leslee Heath, [address] [place] [address] 10/07/2024 10:10 AM EST Anticoagulation [facility] [address] [place] [address] [facility] [address] [facility], [place] [address] 10/09/2024 3:00 PM EST [facility] [address] [place] [address] Rosalind Smith RN [address] [place] [address] 10/13/2024 10:00 AM EDT [facility] Visit [facility] [address] [place], [place] [address] Rosalind Smith RN [address] [place] [address] 10/28/2024 10:10 AM EDT Anticoagulation Pharmacy, [place] [address] [place] [address] [address] [facility], [place] [address] 10/28/2024 10:20 AM EDT Office Visit Pharmacy, [place], [place] [phone] [facility] [address] [facility] [address] 11/10/2024 11:00 AM EDT Office Visit Family Practice, [place] [phone] Natalia Heller PALoiC [address] [place] [address] 02/18/2025 12:00 PM EDT Office Visit [facility] [place] [address] [place] [address] Natalia Heller PA-C [address] [place] [address] Scheduled Procedures Name Priority Associated Diagnoses Date/Ti [...] Td or Tdap) 09/15/2024 09/15/2014, 07/15/2008, 02/09/1998 HbA1c 11/07/2024 05/09/2024, 11/2023, 11/16/2023, Additional history [...] history exists Postponed from 01/18/2022 (Acute Illness) O2 ASSESSMENT COMPLETED IN PAST YEAR FOR COPD 09/12/2025 09/12/2024 Pneumococcal Vaccine: 50+ Years Completed 01/20/2016, 01/15/2015, 09/18/2006, Additional history exists Colonoscopy Discontinued 09/18/2023, 09/06, 11/16/2020, Additional history exists Colorectal Cancer Screening Discontinued RETIRED - COLONOSCOPY-EVERY 2 YRS AGES 18-100 Discontinued 09/18/2023, 09/18/2023, 11/16/2020, Additional history exists Influenza Vaccine (FLU shot) Completed 04/15/2024, 04/04/2023, 05/08/2022, Additional history exists Alpha-1 Antitrypsin Completed 05/09/2024 VITAMIN D LEVEL ONCE IN A LIFETIME-USE SMARTSET# 42624 Completed 05/09/2024, 06/18/2020, 07/25/2019, Additional history exists Lung Cancer Screening Completed 08/29/2024 , 12/22/2022, 12/09/2021, Additional history exists Cologuard Discontinued Fecal Occult Blood Test Discontinued HPV (Gardasil) Vaccine Aged Out No lo nger eligible based on patient's age to complete this topic Hepatitis B Vaccine Aged Out No longe r eligible based on patient's age to complete this topic MENINGOCOCCAL (MENACTRA/MENVEO) Aged Out No longer eligible based on patient's age to complete this topic Meningitis B Vaccine (Bexsero/Trumemba) Aged Out No longer eligible based on patient's age to complete this topic Sigmoidoscopy Discontinued documented as of this encounter Medical Devices Implanted Type Area Glassworker Device Identifier Shelf Expiration Date Model / Serial / Lot Graft Cervical 6x8 [id number] - [id number] Implanted:Qt y: 2 on 08/21/2008 [place] [facility] [place] - Human Spine Cervical [employer] [id number] / / Screw Spine 14mm [id number] - [id number] Implanted:Qt y: 2 on 08/21/2008 at [place] [facility] [place] N/A: Spine Cervical [employer]SON [employer] CARSON DEPUY 1867-50-014 / / Depuy [place] 14 Mm Sd Con Scr Implanted:Qt y: 2 on 08/21/2008 at [place] [facility] [place]/A: Spine Cervical [employer] DEPUY 8-60-014 / / Description:Depuy skyline 14 mm SD con SCR 34 Mm Plate Implanted:Qt y: 1 on 08/21/2008 at [place] [facility] [place] N/A: Spine Cervical / / Description:34 mm Depuy plat e 14 Mm Variable Rescue Implanted:Qt y: 2 on 08/21/2008 at [place] [facility] [place] N/A: Spine Cervical 014 / / Description:14 mm variable r escue Screw 3.5x14 Mntr Fa [id number] - [id number] Implanted:Qt y: 10 on 07/13/2010 [place] [facility] [place]/A: Spine Cervical JNJ : [employer] [id number] / / Devaughn [id number] - [id number] Implanted:Qt y: 1 on 07/13/2010 [place] [facility] [place]/A: Spine Cervical JNJ : [employer] [id number] / / Screw Inner Mntr [id number] - [id number] Implanted:Qt y: 8 on 07/13/2010 [place] [facility] [place]/A: Spine Cervical JNJ : [employer] [id number] / / Nut Outer Xcon [id number] - [id number] Implanted:Qt y: 2 on 07/13/2010 [place] [facility] [place]/A: Spine Cervical JNJ : [employer] [id number] / / Screw Inner Xcon [id number] - [id number] Implanted:Qt y: 2 on 07/13/2010 [place] [facility] [place]/A: Spine Cervical JNJ : [employer] [id number] / / Plate 35mm Xcon [id number] - [id number] Implanted:Qt y: 1 on 07/13/2010 [place] [facility] [place]/A: Spine Cervical JNJ : [employer] [id number] / / documented as of this encounter [...] the patient have Health Care Power of Reduction Furnace Operator? No * Full Code Date Activated [...] Power of Attor kim? No Care Teams Scouring Train Operator Chief Relationship Specialty Start Date End Date Natalia Heller PA-C [address] [address] PCP - General Physician Carpenter Wooden Tank Erecting 08/28/24 documented as of this encounter
--- OUTSIDE RECORDS SUMMARY | 2024-09-26 16:06 | External Medical Summary | Summary of Care ---
Author Name Unknown Organization [facility] Address [address] [facility] [place] [address] Phone [phone] Care Team Providers Care Wound Care Technician Name Role Phone Natalia Heller PA-C Primary Care Provider [phone] Reason for Visit * Reason Onset Date Comments Blood Glucose Monitoring 09/13/2024 Encounter Details Date Type Department Care Team (Late st Contact Info) Description 09/13/2024 Telephone Family Practice [facility] [address] [facility] [place] [address] Portia Casillas PA-C [address] [place] [address] Blood Glucose Monitoring Allergies Active Allergy Reactions Criticality Noted Date Comments Alendronate Sodium 06/24/2012 Burning sensation and difficulty breathing Proton Pump Inhibitors Hives 02/20/2002 nexium documented as of this encounter (statuses as of 09/15/2024) Medications Multiple Vitamin (DAILY VALUE MULTIVITAMIN) Tablet [...] disorder ([facility]) Use as directed. 10/04/19 24 [...] skin. 310 units in pump. 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 Active methylPREDNISolone 4 MG Oral Tablet Therapy Pack (Medrol) Take as directed 21 Tablet 08/25/2024 11:23 AM EST 08/22/19 25 Active Additional Information Patient not taking.Reported on 09/12/2024 Furosemide 20 MG Oral Tablet (Lasix) Take 1 Tablet by mouth once a day on Sunday, Sunday, and Sunday only. 45 Tablet 3 09/12/19 25 Active Famotidine 40 MG Oral Tablet (Pepcid)Indication s:Gastro-esophagea l reflux disease without esophagitis Take 1 Tablet by mouth in the morning. 30 Tablet 1 09/12/19 25 Active Accu-Chek Guide Test In Vitro Strip (Glucose Blood) Use to test bg up to 4 times a day 800 Strip 1 09/12/19 25 Active Accu-Chek Adri Plus w/Device Kit Use to check bg 1 Kit 1 09/12/19 25 Active Hospital, Clinic, or Other Facility Administered Medication Ordered Dose Route Frequency Start Date End Date Status Albuterol Sulfate (Proventil) (2.5 MG/3ML) 0.083% inhalation solution 2.5 mgIndications:COPD with exacerbation (HCC),SOB (shortness of breath),Asthma with COPD (chronic obstructive pulmonary disease) (HCC) 2.5 mg NEBULIZER PRN 08/21/2024 08/21/2025 Active documented as of this encounter (statuses as of 09/15/2024) Active Problems Problem Noted Date Diagnosed Date [...] artery disease of n ative artery of alutiiq heart with stable angina pectoris 12/08/2020 Assessment [...] as of this encounter (statuses as of 09/15/2024) Resolved Problems Problem Noted Date Diagnosed Date [...] as of this encounter (statuses as of 09/15/2024) Immunizations Name Administration Dates Next Due COVID-19 [...] Not on file 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 She states that a low blood sugar has only happened once since being in the hospital and they have otherwise been elevated above 200 for her. She is aware that this is not a good blood sugar. She states that she remembers to give bolus before meals. States that she still feels comfortable using theinsulin pump. Declined sooner visit than what is currently scheduled. Shanthi Franks, PharmD, BCACP Clinical Pharmacist Medication Therapy Disease Management 09/15/2024, 2:53 PM * Telephone Encounter - Natalia Heller PA-C - 09/15/2024 2:39 PM EST Shanthi - as below Inboxologist Note: Have you spoken with her recently? Natalia Heller PA-C * Telephone Encounter - Portia Casillas PA-C - 09/13/2024 6:25 PM EST Received call from Zayra RN from [facility]. Went to pt's home today to establish care afterpt's recent discharge from [facility] on 09/11. On her arrival, pt reports her BS was 47 this morning. gave her juice and crackers and pt ate a big breakfast. BS was then in the 200s. Zayra reports pt seemed a bit confused and unsure of how to use her insulin pump despite having it for years. Cognitive screening done on patient with no issues--pt A&O x 4. By the end of the nursing assessment,BS was up to 398. Pt then realized she hadn't given herself her bolus after breakfast meal. Zayra called the pt this evening and her BS was 216 and she was about to give herself her dinner bolus. Zayra provided education to the pt as well as to the pt's . She will call and check in on the ptagain tomorrow. Nursing visits scheduled for Tu/Fri this week. Has HFU appt scheduled this week on 09/17--forwarded to scheduled provider as TOÑA. documented in this encounter Plan of Treatment Upcoming Encounters Date Type Department Care Team (Late st Contact Info) Description 09/17/2024 8:20 AM EST [place] [phone] Natalia Heller PA-C [address] [address] 09/22/2024 10:00 AM EST Anticoagulation Pharmacy, [place] [phone] Ankit [address] [place] [address] 09/22/2024 10:10 AM EST Office Visit Pharmacy, [place] [phone] [place] [facility] [address] [facility] [place] [address] 09/25/2024 11:00 AM EST [facility] [address] [place] [address] Radu Suazo PA-C [address] [place] [address] 09/30/2024 9:20 AM EST [facility] [address] [place] [phone] Leslee Heath DO [address] [place] [place] [address] 10/09/2024 3:00 PM EST [facility] [address] [place] [address] Rosalind Smith, RN [address] [place] [address] 10/13/2024 10:00 AM EDT [facility] [address] [place] [address] Rosalind Smith, RN [address] [place] [address] 11/10/2024 11:00 AM EDT Office Visit [facility], [place] [address] [place] [phone] Natalia Heller PA-C [address] [place] [address] 02/18/2025 12:00 PM EDT Office Visit [facility] [place] [address] [place] [address] Natalia Heller PA-C [address] [address] Scheduled Procedures Name Priority Associated Diagnoses Date/Ti [...] D LEVEL ONCE IN A LIFETIME-USE SMARTSET# 14967 Completed 05/09/2024, 06/18/2020, 07/25/2019, Additional history exists [...] this encounter Medical Devices Implanted Type Area Home And School Visitor Device Identifier Shelf Expiration Date Model / Serial / Lot Graft Cervical 6x8 [id number] - [id number] Implanted:Qt y: 2 on [place]2008 [place] [facility] [place] - Human Spine Cervical [employer] [id number] / / Screw Spine 14mm 1867-- - [id number] Implanted:Qt y: 2 on 08/21/2008 [place] [facility] [place]A: Spine Cervical CARSON & CARSON DEPUY [id number] / / Depuy [place] 14 Mm Sd Con Scr Implanted:Qt y: 2 on 08[place]21/2008 [place] [facility] [place]: Spine Cervical CARSON [employer] CARSON DEPUY 60-014 / / Description:Depuy skyline 14 mm SD con SCR 34 Mm Plate Implanted:Qt y: 1 on 08/21/2008 [place] [facility] [place]: Spine Cervical 1868-02-034 / / Description:34 mm Depuy plat e 14 Mm Variable Rescue Implanted:Qt y: 2 on 08/21/2008 [place] [facility] [place]: Spine Cervical 1868-54-014 / / Description:14 mm variable r escue Screw 3.5x14 Mntr Fa [id number] - [id number] Implanted:Qt y: 10 on 07[place]13/2010 [place] [facility] [place]: Spine Cervical JNJ : ETH[employer]ON [employer]ATIONS [id number] / / Devaughn [id number] - [id number] Implanted:Qt y: 1 on 07/13/2010 [place] [facility] [place]: Spine Cervical JNJ : [employer] [id number] / / Screw Inner Mntr [id number] - [id number] Implanted:Qt y: 8 on 07/13/2010 [place] [facility] [place]: Spine Cervical JNJ : [employer] [id number] / / Nut Outer Xcon [id number] - [id number] Implanted:Qt y: 2 on 07/13/2010 [place] [facility] [place]: Spine Cervical JNJ : ETH[employer]ON [employer] [id number] / / Screw Inner Xcon [id number] - [id number] Implanted:Qt y: 2 on 07/13/2010 [place] [facility] [place]: Spine Cervical JNJ : [employer] [id number] / / Plate 35mm Xcon [id number] - [id number] Implanted:Qt y: 1 on 07/13/2010 [place] [facility] [place]: Spine Cervical JNJ : ETH[employer]ON [employer]ATIONS [id number] / / documented as of this encounter Visit Diagnoses Diagnosis COPD, moderate (HCC)- Primary Chronic airway obstruction, not elsewhere classified Chronic atrial fibrillation (HCC) Atrial fibrillation 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 No * Full Code Date Activated Date [...] Power of Attor kim? No Care Teams Wound Care Technician Relationship Specialty Start Date End Date Natalia Heller PA-C [address] [place] [address] PCP - General Physician Planning Management It Specialist 08/28/24 documented as of this encounter
--- OUTSIDE RECORDS SUMMARY | 2024-09-26 16:06 | External Medical Summary | Summary of Care ---
Author Name Unknown Organization [facility] Address [address] [facility] [address] Phone [phone] Care Team Providers Care Wax Pattern Assembler Name Role Phone Natalia Heller PA-C Primary Care Provider [phone] [phone] Reason for Visit * Reason Comments Dosage Adjustment In Person (Anticoag Cl inic) Encounter Details Date Type Department Care Team (Latest Contact Info) Description 09/22/2024 10:00 AM EST Anticoagulation Pharmacy, [facility] [address] [place] [address] [facility] [address] [place] [address] Anticoagulation management encounter*; History of DVT (deep vein thrombosis); Chronic atrial fibrillation (HCC) Allergies Active Allergy Reactions Criticality Noted Date Comments Alendronate Sodium 06/24/2012 Burning sensation and difficulty breathing Proton Pump Inhibitors Hives 02/20/2002 nexium documented as of this encounter (statuses as of 09/22/2024) Medications Multiple Vitamin (DAILY VALUE MULTIVITAMIN) Tablet Take 1 Tablet by mouth in the morning. Active Fluticasone Propionate 50 MCG/ACT Nasal Suspension (Flonase)Indicatio ns:Chronic rhinitis Administer 2 Sprays into each nostril in the morning. 16 g 1 11/02/19 23 Active Accu-Chek Guide Me w/Device KitIndications:Typ e 2 diabetes mellitus with foot ulcer, with long-term current use of insulin ([facility]),DM (diabetes mellitus) type II, controlled, with peripheral vascular disorder ([facility]) Use as directed. 10/04/19 24 Active Accu-Chek Softclix LancetsIndications :Type 2 diabetes mellitus with foot ulcer, with long-term current use of insulin ([facility]),DM (diabetes mellitus) type II, controlled, with peripheral vascular disorder ([facility]) Use to test blood [...] skin. 310 units in pump. Getting from [employer] PAP Active Aspirin 81 MG Oral Tablet [...] :HTN, goal below 130/80,Coronary artery disease involving capitan grande band coronary artery of capitan grande band heart without angina pectoris TAKE ONE TABLET BY MOUTH EVERY MORNING 90 Tablet 3 4 8:51 AM EDT 01/15/20 24 025 Active metFORMIN HCl 1000 MG Oral Tablet (Glucophage)Indica tions:DM type 1 causing neurological disease, not at goal ([facility]) TAKE ONE TABLET BY MOUTH TWICE A DAY WITH FOOD 200 Tablet 3 4 3:44 PM EST 01/22/20 24 025 Active Vitamin B12 500 MCG Oral Tablet Take by mouth daily. 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 45 Tablet 3 5 7:59 AM EST 09/12/19 25 Active Famotidine 40 MG Oral Tablet (Pepcid)Indication s:Gastro-esophagea l reflux disease without esophagitis Take 1 Tablet by mouth in the morning. 30 Tablet 1 5 7:59 AM EST 09/12/19 25 Active Accu-Chek Guide Test In Vitro Strip (Glucose Blood) Use to test bg up to 4 times a day 800 Strip 1 5 3:05 PM EST 09/12/19 25 Active Accu-Chek Adri Plus w/Device Kit Use to check bg 1 Kit 1 5 3:05 PM EST 09/12/19 25 Active Cephalexin 500 MG Oral Capsule Take 1 Capsule by mouth in the morning and 1 Capsule at noon and 1 Capsule before bedtime. Do all this for 10 days. 30 Capsule 4 3:28 PM EST 06/10/20 24 025 Discontin ued(Medic ation List Clean Up) Amoxicillin-Pot Clavulanate 875-125 MG Oral Tablet (Augmentin) Take 1 Tablet by mouth in the morning and 1 Tablet before bedtime. Do all this for 21 days. 42 Tablet 5 2:33 PM EST 08/21/19 25 025 Discontin ued(Medic ation List Clean Up) methylPREDNISolone 4 MG Oral Tablet Therapy Pack [...] before breakfast. 17 Tablet 08/21/19 25 025 Discontin ued(End of Procedure ) methylPREDNISolone 4 MG Oral Tablet Therapy Pack (Medrol) Take as directed 21 Tablet 5 11:23 AM EST 08/22/19 25 025 Discontin ued(Medic ation List Clean Up) Hospital, Clinic, or Other Facility Administered Medication Ordered Dose Route Frequency Start Date End Date Status Albuterol Sulfate (Proventil) (2.5 MG/3ML) 0.083% inhalation solution 2.5 mgIndications:COPD with exacerbation (HCC),SOB (shortness of breath),Asthma with COPD (chronic obstructive pulmonary disease) (HCC) 2.5 mg NEBULIZER PRN 08/21/2024 08/21/2025 Active documented as of this encounter (statuses as of 09/22/2024) Active Problems Problem Noted Date Diagnosed Date [...] artery disease of n ative artery of capitan grande band heart with stable angina pectoris 12/08/2020 Assessment [...] as of this encounter (statuses as of 09/22/2024) Resolved Problems Problem Noted Date Diagnosed Date [...] as of this encounter (statuses as of 09/22/2024) Immunizations Name Administration Dates Next Due COVID-19 [...] Not on file 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 Not on f ile Not on file [...] Progress Notes * Shanthi Franks RPh - 09/22/2024 10:07 AM EST Images from the original note were not included. Medication Therapy Disease Management - Anticoagulation Patient: Graciela Mobley | : 1950 Subjective Patient-Reported Symptoms: Patient Findings Positives: Hospital admission (09/05-09/11 for acute COPD exacerbation and RSV, sepsis and DKA) Negatives: Signs/symptoms of thrombosis, Signs/symptoms of bleeding, Change in health, Change in alcohol use, Change in activity, Upcoming invasive procedure, Missed doses, Extra doses, Change in medications, Change in diet/appetite, Bruising Objective Current Warfarin Dose As of 09/22/2024 Warfarin maintenance plan: 10 mg (5 mg x 2) every Sun, Tue, Karen; 5 mg (5 mg x 1) all other days INR Result As of 09/22/2024 INR goal: 2.0-3.0 INR used for dosin.3 (09/22/2024) Assessment & Plan Warfarin Plan As of 09/22/2024 Full warfarin instructions: 09/22: 15 mg; 09/23: 12.5 mg; Otherwise 10 mg every Sun, Tue, Karen; 5 mg all other days Next INR check: 10/07/2024 Repeat PT/INR in 2 week(s) Weekly dose: not changed-- she was therapeutic in the hospital Additional Dosing Information: Description I spent a total of 10-19 minutes (exact time 10 mins) on the date of service in preparation, delivery, and documentation of the care provided to Graciela Mobley excluding any time spent in the performance of separately billed services or time spent by another provider/QHP. Shanthi Franks [facility] Clinical Pharmacist 09/22/2024, 10:07 AM documented in this encounter Plan of Treatment Upcoming Encounters Date Type Department Care Team (Late st Contact Info) Description 09/25/2024 1:00 PM EST [facility] [address] [place] [address] Radu Suazo PA-C [address] [facility] [place] [address] 09/30/2024 9:20 AM EST Office Visit [facility] [address] [facility] [place] [phone] Leslee Heath DO [address] [place] [address] 10/07/2024 10:10 AM EST Anticoagulation Pharmacy, [facility] [address] [phone] [place] [address] [place] [address] 10/09/2024 3:00 PM EST [facility] [place] [address] Rosalind Smith RN [address] [facility] [place] [address] 10/13/2024 10:00 AM EDT [facility] [address] [place] [address] Rosalind Smith, RN [address] [place] [address] 10/28/2024 10:10 AM EDT Anticoagulation Pharmacy, [address] [facility] [phone] [facility] [address] [facility], [place] [address] 10/28/2024 10:20 AM EDT Office Visit Pharmacy, [place] [phone] [facility] [address] [place] [place] [address] 11/10/2024 11:00 AM EDT Office Visit [facility], [place] [phone] Natalia Heller PA-C [address] [place] [address] 02/18/2025 12:00 PM EDT Office Visit [facility], [place] [place] [phone] Natalia Heller PA-C [address] [address] Scheduled Procedures Name Priority Associated Diagnoses Date/Ti [...] D LEVEL ONCE IN A LIFETIME-USE SMARTSET# [id number] Completed 05/09/2024, 06/18/2020, 07/25/2019, Additional history exists [...] this encounter Medical Devices Implanted Type Area Deck Engineer Device Identifier Shelf Expiration Date Model / Serial / Lot Graft Cervical 6x8 [id number] - [id number] Implanted:Qt y: 2 on 08/21/2008 at [place] [facility] [place] - Human Spine Cervical [employer] [id number] / / Screw Spine 14mm [id number] - [id number] Implanted:Qt y: 2 on 08/21/2008 at [place] [facility] [place] N/A: Spine Cervical [employer]SON [employer] CARSON DEPUY [id number] / / Depuy [place] 14 Mm Sd Con Scr Implanted:Qt y: 2 on 08/21/2008 at [place] [facility] [place] N/A: Spine Cervical [employer] DEPUY [id number] / / Description:Depuy skyline 14 mm SD con SCR 34 Mm Plate Implanted:Qt y: 1 on 08/21/2008 at [place] [facility] [place] N/A: Spine Cervical [id number] / / Description:34 mm Depuy plat e 14 Mm Variable Rescue Implanted:Qt y: 2 on 08/21/2008 at [place] [facility] [place] N/A: Spine Cervical [id number] / / Description:14 mm variable r escue Screw 3.5x14 Mntr Fa [id number] - [id number] Implanted:Qt y: 10 on 07/13/2010 at [place] [facility] [place] N/A: Spine Cervical JNJ : ETH[employer]ON [employer]ATIONS [id number] / / Devaughn [id number] - [id number] Implanted:Qt y: 1 on 07/13/2010 at [place] [facility] [place] N/A: Spine Cervical JNJ : ETH[employer]ON [employer]ATIONS [id number] / / Screw Inner Mntr [id number] - [id number] Implanted:Qt y: 8 on 07/13/2010 at [place] [facility] [place] N/A: Spine Cervical JNJ : ETH[employer]ON CARDIOVATIONS [id number] / / Nut Outer Xcon [id number] - [id number] Implanted:Qt y: 2 on 07/13/2010 at [place] [facility] [place] N/A: Spine Cervical JNJ : ETH[employer]ON CARDIOVATIONS [id number] / / Screw Inner Xcon [id number] - [id number] Implanted:Qt y: 2 on 07/13/2010 at [place] [facility] [place] N/A: Spine Cervical JNJ : ETH[employer]ON C[employer]IOVATIONS [id number] / / Plate 35mm Xcon [id number] - [id number] Implanted:Qt y: 1 on 07/13/2010 at [place] [facility] [place] N/A: Spine Cervical JNJ : ETHICON CARDIOVATIONS [id number] / / documented as of this encounter Procedures Procedure Name Priority Date/Time Associated Diagnosis Comments INR FINGERSTICK, POINT OF CARE STAT 09/22/2024 10:12 AM EST History of DVT (deep vein thrombosis) Chronic atrial fibrillation (HCC) Anticoagulation management encounter documented in this encounter Results * INR FINGERSTICK, POINT OF CARE (09/22/2024 10:12 AM EST) Fingerstick INR 1.3 INR 12:45 PM EST [facility]- Blood 09/22/2024 10:1 2 AM EST 09/22/2024 12:45 PM EST Narrative [facility]-01 - 09/22/2024 12:45 PM EST Therapeutic ranges for non-operative patients: Prophylaxsis/treatment of DVT: (Range:2.0-3.0) Treatment of pulmonary embolism:(Range:2.0-3.0) Prevention of systemic embolism from: -tissue heart valves -acute myocardial infarction -valvular heart disease -atrial fibrillation (Range: 2.0-3.0) Mechanical prosthetic valves: (Range: 2.5-3.5) Shanthi Frnaks [facility] LAB POINT OF CARE TEST DOCKED DEVICE UNSOLICITED RESULTS Final Result [facility] [place] [address], [facility] documented in this encounter Visit Diagnoses Diagnosis COPD, moderate (HCC)- Primary Chronic airway obstruction, not elsewhere classified Chronic atrial fibrillation (HCC) Atrial fibrillation 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 No * Full Code Date Activated [...] Power of Attor kim? No Care Teams Wax Pattern Assembler Relationship Specialty Start Date End Date Natalia Heller PA-C [address] [place] [address] PCP - General Physician Corrective Therapy Aide Teacher 08/28/24 documented as of this encounter
--- OUTSIDE RECORDS SUMMARY | 2024-09-26 16:06 | External Medical Summary | Summary of Care ---
Author Name Unknown Organization [facility] Address [address] [facility] [place] [address] Phone [phone] Care Team Providers Care Tile Mechanic Name Role Phone Natalia Heller PA-C Primary Care Provider +1 [phone] Encounter Details Date Type Department Care Team (Late st Contact Info) Description [facility] [address] [place] [phone] Natalia Heller PA-C [address] [place] [address] Allergies Active Allergy Reactions Criticality Noted Date Comments Alendronate Sodium 06/24/2012 Burning sensation and difficulty breathing Proton Pump Inhibitors Hives 02/20/2002 nexium documented as of this encounter (statuses as of 09/19/2024) Medications Multiple Vitamin (DAILY VALUE MULTIVITAMIN) Tablet Take 1 Tablet by mouth in the morning. Active Fluticasone Propionate 50 MCG/ACT Nasal Suspension (Flonase)Indicatio ns:Chronic rhinitis Administer 2 Sprays into each nostril in the morning. 16 g 1 11/02/19 23 Active Accu-Chek Guide Me w/Device KitIndications:Typ e 2 diabetes mellitus with foot ulcer, with long-term current use of insulin ([facility]),DM (diabetes mellitus) type II, controlled, with peripheral vascular disorder (HCC) Use as directed. 10/04/19 24 Active Accu-Chek Softclix LancetsIndications :Type 2 diabetes mellitus with foot ulcer, with long-term current use of insulin (HCC),DM (diabetes mellitus) type II, controlled, with peripheral vascular disorder ([facility]) Use to test blood glucose [...] skin. 310 units in pump. Getting from Active [employer] PAP Active Aspirin 81 MG Oral Tablet [...] :HTN, goal below 130/80,Coronary artery disease involving [place]orvik coronary artery of [place]or[place] heart without angina pectoris TAKE ONE TABLET [...] Tablet Sublingual (Nitrostat)Indicat ions:Coronary artery disease of [place] artery of [place] heart with stable angina pectoris (HCC) PLACE [...] Additional Information Patient not taking.Reported on 09/12/2024 Hospital, Clinic, or Other Facility Administered Medication Ordered Dose Route Frequency Start Date End Date Status Albuterol Sulfate (Proventil) (2.5 MG/3ML) 0.083% inhalation solution 2.5 mgIndications:COPD with exacerbation (HCC),SOB (shortness of breath),Asthma with COPD (chronic obstructive pulmonary disease) (HCC) 2.5 mg NEBULIZER PRN 08/21/2024 08/21/2025 Active documented as of this encounter (statuses as of 09/19/2024) Active Problems Problem Noted Date Diagnosed Date [...] artery disease of n ative artery of noorvik heart with stable angina pectoris 12/08/2020 Assessment [...] as of this encounter (statuses as of 09/19/2024) Resolved Problems Problem Noted Date Diagnosed Date [...] as of this encounter (statuses as of 09/19/2024) Immunizations Name Administration Dates Next Due COVID-19 [...] Not on file 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 When patient returns call, ok for SHAKIRA to relay message, please refer to below documentation. If needed, can transfer to dedicated nurse line. Please see were else they my want a referral to for Home Health. Thanks * Telephone Encounter - Emilee Blanco LPN - 09/11/2024 3:16 PM EST Spoke with [employer] and they were not able to accept the referral. * Telephone Encounter - Ralph Pride MD - 09/11/2024 3:11 PM EST Notify: I will sign the home Health order as he is scheduled to see Natalia 09/17/24. * Telephone Encounter - Elena Rivera LPN - 09/11/2024 2:08 PM EST I spoke with [employer] and they are wanting to know if Dr. Pride would be willing to sign orders for home health for this patient? States they need an answer today * Telephone Encounter - Katherine Real OSA - 09/11/2024 2:05 PM EST Reason for patient's call: [employer] to sign form Caller was transferred to at the nurse line. documented in this encounter Plan of Treatment Upcoming Encounters Date Type Department Care Team (Late st Contact Info) Description 09/22/2024 10:00 AM EST Anticoagulation Pharmacy, [address] [facility] [place] [phone] [facility] [address] [facility] [address] 09/22/2024 10:10 AM EST Office Visit Pharmacy, [address] [facility] [place] [address] [facility] [address] [facility] [place] [address] 09/25/2024 1:00 PM EST [facility] Visit [facility] [place], [facility] [address] [place] [address] Radu Suazo PA-C [address] [place] [address] 09/30/2024 9:20 AM EST Office Visit [facility] [address] [place] [phone] Leslee Heath DO [address] [place] [address] 10/09/2024 3:00 PM EST [facility], [facility] [address] [place] [address] Rosalind Smith, RN [address] [place] [address] 10/13/2024 10:00 AM EDT [facility] Visit [facility], [facility] [address] [place] [address] Rosalind Smith, RN [address] [place] [address] 11/10/2024 11:00 AM EDT Office Visit [facility], [place] [place] [address] [place] [phone] Natalia Heller PA-C [address] [place] [address] 02/18/2025 12:00 PM EDT Office Visit [facility], [place] [place] [address] [place] [address] Natalia Heller PA-C [address] [place] [address] Scheduled Procedures Name Priority Associated Diagnoses Date/Ti [...] D LEVEL ONCE IN A LIFETIME-USE SMARTSET# [id number] Completed 05/09/2024, 06/18/2020, 07/25/2019, Additional history exists [...] this encounter Medical Devices Implanted Type Area Water Mangle Tender Device Identifier Shelf Expiration Date Model / Serial / Lot Graft Cervical 6x8 [id number] - [id number] Implanted:Qt y: 2 on 08/21/2008 [place] [facility] [place] - Human Spine Cervical [employer] [id number] / / Screw Spine 14mm - [id number] Implanted:Qt y: 2 on 08/21/2008 [place] [facility] [place]: Spine Cervical CARSON [employer] CARSON DEPUY [id number] / / Depuy [place] 14 Mm Sd Con Scr Implanted:Qt y: 2 on 08/21/2008 [place] [facility] [place]: Spine Cervical [employer] CAR[employer] DEPUY 60 / / Description:Depuy skyline 14 mm SD con SCR 34 Mm Plate Implanted:Qt y: 1 on 08/21/2008 [place] [facility] [place]: Spine Cervical / / Description:34 mm Depuy plat e 14 Mm Variable Rescue Implanted:Qt y: 2 on 08/21/2008 [place] [facility] [place]: Spine Cervical / / Description:14 mm variable r escue Screw 3.5x14 Mntr Fa [id number] - [id number] Implanted:Qt y: 10 on 07[place]13/2010 [place] [facility] [place]: Spine Cervical JNJ : ETHICON CARDIOVATIONS [id number] / / Devaughn [id number] - [id number] Implanted:Qt y: 1 on 07/13/2010 [place] [facility] [place]: Spine Cervical JNJ : ETH[employer]ON CARDIOVATIONS [id number] / / Screw Inner Mntr [id number] - [id number] Implanted:Qt y: 8 on 07/13/2010 [place] [facility] [place]: Spine Cervical JNJ : ETHICON CARDIOVATIONS [id number] / / Nut Outer Xcon [id number] - [id number] Implanted:Qt y: 2 on 07/13/2010 [place] [facility] [place]: Spine Cervical JNJ : ETHICON CARDIOVATIONS [id number] / / Screw Inner Xcon [id number] - [id number] Implanted:Qt y: 2 on 07/13/2010 [place] [facility] [place]: Spine Cervical JNJ : ETH[employer]ON CARDIOVATIONS [id number] / / Plate 35mm Xcon [id number] - [id number] Implanted:Qt y: 1 on 07/13/2010 [place] [facility] [place]: Spine Cervical JNJ : ETH[employer]ON CARDIOVATIONS [id number] / / documented as of this encounter [...] the patient have Health Care Power of Public Health Nurse? No * Full Code Date Activated [...] Power of Attor kim? No Care Teams Tile Mechanic Relationship Specialty Start Date End Date Natalia Heller PA-C [address] [place] [address] PCP - General Physician Pattern Worker 08/28/24 documented as of this encounter
--- OUTSIDE RECORDS SUMMARY | 2024-09-26 16:06 | External Medical Summary | Summary of Care ---
Author Name Unknown Organization [facility] Address [address] [facility] [place] [address] Phone [phone] Care Team Providers Care Ticketing Agent Name Role Phone Natalia Heller PA-C Primary Care Provider [phone] [phone] Reason for Visit * Reason Comments Dosage Adjustment In Person (Anticoag Cl inic) Diabetes Follow-Up Insulin Pump Encounter Details Date Type Department Care Team (Late st Contact Info) Description 09/22/2024 10:10 AM EST Office Visit Pharmacy, [facility] [address] [place] [phone] [place], [facility] [address] [place] [address] Type 2 diabetes mellitus with foot ulcer, with long-term current use of insulin ([facility])*; DM (diabetes mellitus) type II, controlled, [...] ([facility]) Use as directed. 10/04/19 24 [...] skin. 310 units in pump. 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 Not on f ile Not on file [...] Author No 05/02/2019 3:21 PM Selin Park, RN * Because of a physical, mental, [...] this encounter Progress Notes * Shanthi Franks, [facility] - 09/22/2024 10:08 AM EST Images from the original note were not included. Medication Therapy Disease Management Clinic - Diabetes Management Progress Note Graciela Mobley, identified by name and date of , is a 74 year old female being seen for diabetes management/education. Patient presents for return diabetic visit. DIABETES: Current diabetic medications: Metformin 1000mg twice daily STOP Ozempic 2 mg once weekly- Sundays GFR 75 as of 05/09/24 Medtronic 780G Insulin Pump (Serial Number: [id number]) Infusion Set: Quick set Insulin: Novolog Basal [...] your blood sugar go below 70 mg/dL? Yes, see above Hyperglycemia symptoms present: none Recent Labs Units 05/09/24 0911 05/09/24 0823 11/16/23 0000 HEMOGLOBIN A1C - [facility] % 11.1* -- -- HEMOGLOBIN, [id number] LAB -- -- 10.4* HEMOGLOBIN A1C POCT - [facility] % -- 11.2* -- Recent Labs Units 05/09/24 0911 12/12/23 1523 11/23/23 1023 ESTIMATED GLOMERULAR FILTRATION RATE - [facility] mL/min 75 64 70 CREATININE - [facility] mg/dL 0.8 0.9 0.9 HYPERTENSION: Patient on ACEi/ARB: no, indicated per UACR-- will need to discuss in future BP Readings from Last 3 Encounters: 09/12/24 136/68 08/21/24 110/60 08/12/24 124/70 Blood pressure at goal: yes HYPERLIPIDEMIA: Recent [...] 2024 Zoster Vaccines (3 of 3) 08/06/2024 DTap/Tdap Vaccines (2 - Td or Tdap) 09/15/2024 ASSESSMENT & PLAN: ICD-10-CM 1. Type 2 diabetes mellitus with foot ulcer, with long-term current use of insulin ([facility]) E11.621 L97.509 Z79.4 2. DM (diabetes mellitus) type II, controlled, with peripheral vascular disorder ([facility]) E11.51 Considerations: - over [employer] income as of 2021 - patient approved for NovoNordisk PAP -- re-enroll in Sep 2024 - omnipod not an option due to cost (on [facility] Gold, would push to donut hole immediately) + pt's current insulin requirement. Glycemic control is unstable and not at goal Patient agreeable to adjust medications as noted below. Basal settings decreased overnight as glucose is falling overnight and resulting in lows in AM. ICR/fixed dose/ISF continued, I watched patient go through motions of giving herself a bolus dose and she did it appropriately. She just sometimes forgets, or will not give it if having a small "snack or baked good". Reminded patient that if she is eating more than 2 bites of a cheesecake, carrot cake, etc, she needs to give herself insulin. Suggested she give 25 units for any baked good. Patient to SMBG at least 4 times daily, before each meal and at bedtime. Patient aware to contact clinic if any hypoglycemia before next visit. Reviewed rule of 15s. Reviewed appropriate management of hyperglycemia as noted in pump start documentation. MEDICATION CHANGES: Diabetic Medications: Metformin 1000mg twice daily GFR 75 as of 05/09/24 Medtronic 780G Insulin Pump (Serial Number: [id number]) Infusion Set: Quick set Insulin: Novolog Basal Rate: midnight to 6am: 7.2 units/hour (decreased) 6am to noon: 8.0 units/hour noon to [...] MAINTENANCE INTERVENTIONS: Labs: Up to Date Immunizations: due for shingrix and tdap Foot Exam: Up to Date Eye Exam: Up to Date Annual Wellness Visit: due FOLLOW UP: Return to clinic in 5 weeks 10/07/2024 I spent a total of 30-39 minutes (exact time 38 mins) on the date of service in preparation, delivery, and documentation of the care provided to Graciela Mobley excluding any time spent in the performance of separately billed services. Shanthi Franks [facility] Clinical Pharmacist - Automatic Vulcanizing Operator Medication Therapy Management Clinic 09/22/2024, 10:08 AM documented in this encounter Plan of Treatment Upcoming Encounters Date Type Department Care Team (Late st Contact Info) Description 09/25/2024 1:00 PM EST [facility] [address] [place] [address] Radu Suazo PA-C [address] [place] [address] 09/30/2024 9:20 AM EST [facility] [address] [place] [phone] Leslee Heath DO [address], [place] [address] 10/07/2024 10:10 AM EST Anticoagulation Pharmacy, [place] [address] [place] [phone] [place] [address] [address] [facility] [address] 10/09/2024 3:00 PM EST [facility] Visit [facility], [facility] [address] [place] [address] Rosalind Smith RN [address] [address] 10/13/2024 10:00 AM EDT Home Visit [facility], [facility] [address] [place] [address] Rosalind Smith RN [address] [place] [address] 10/28/2024 10:10 AM EDT Anticoagulation Pharmacy, [address] [place] [phone] [place] [facility] [address] [facility] [address] 10/28/2024 10:20 AM EDT Office Visit Pharmacy, [address] [place] [phone] [facility] [address] [place] [address] 11/10/2024 11:00 AM EDT Office Visit [facility], [address] [place] [address] Natalia Heller PA-C [address] [place], [place] [phone] 02/18/2025 12:00 PM EDT Office Visit [facility], [address] [place] [address] Natalia Heller PA-C [address] [place] [phone] Scheduled Procedures Name Priority Associated Diagnoses Date/Ti [...] D LEVEL ONCE IN A LIFETIME-USE SMARTSET# [id number] Completed 05/09/2024, 06/18/2020, 07/25/2019, Additional history exists [...] this encounter Medical Devices Implanted Type Area Communication Coordinator Device Identifier Shelf Expiration Date Model / Serial / Lot Graft Cervical 6x8 [id number] - [id number] Implanted:Qt y: 2 on 08/21/2008 [place] [facility] [place] - Human Spine Cervical [employer] [id number] / / Screw Spine 14mm - [id number] Implanted:Qt y: 2 on 08/21/2008 at [place] [facility] [place] N/A: Spine Cervical CARSON [employer] CARSON DEPUY 50 / / Depuy [place] 14 Mm Sd Con Scr Implanted:Qt y: [...] variable r escue Screw 3.5x14 Mntr Fa [id number] - [id number] Implanted:Qt y: 10 on 07/13/2010 at [place] [facility] [place]/A: Spine Cervical JNJ : ETHICON C[employer]ATIONS [id number] / / Devaughn [id number] - [id number] Implanted:Qt y: 1 on 07/13/2010 at [place] [facility] [place]/A: Spine Cervical JNJ : ETHICON CARDIOVATIONS [id number] / / Screw Inner Mntr [id number] - [id number] Implanted:Qt y: 8 on 07/13/2010 at [place] [facility] [place] N/A: Spine Cervical JNJ : ETHICON CARDIOVATIONS [id number] / / Nut Outer Xcon [id number] - [id number] Implanted:Qt y: 2 on 07/13/2010 at [place] [facility] [place] N/A: Spine Cervical JNJ : ETHICON C[employer]IOVATIONS [id number] / / Screw Inner Xcon [id number] - [id number] Implanted:Qt y: 2 on 07/13/2010 at [place] [facility] [place] N/A: Spine Cervical JNJ : ETHICON C[employer]IOVATIONS [id number] / / Plate 35mm Xcon [id number] - [id number] Implanted:Qt y: 1 on 07/13/2010 at [place] [facility] [place] N/A: Spine Cervical JNJ : ETHICON CARDIOVATIONS [id number] / / documented as of this encounter Visit Diagnoses Diagnosis COPD, moderate (HCC)- Primary Chronic airway obstruction, not elsewhere classified Chronic atrial fibrillation (HCC) Atrial fibrillation Coronary artery disease of [place] artery of [place] heart with stable angina pectoris (HCC) DM [...] the patient have Health Care Power of Ear Machine Operator? No * Full Code Date [...] Power of Attor kim? No Care Teams Ticketing Agent Relationship Specialty Start Date End Date Natalia Heller PA-C [address] [place] [id number] PCP - General Physician Nurse Assistant 08/28/24 documented as of this encounter
--- OUTSIDE RECORDS SUMMARY | 2024-09-26 16:06 | External Medical Summary ---
Author Name Unknown Address Unknown Organization : Laboratory Report Ordering Provider Test Date Status LETICIA HOOD 09/22/2024 10:12:26 Final Therapeutic ranges for non-o perative patients:
Prophylaxsis/treatment of DVT: (Range:2.0-3.0)
Treatment of pulmonary embolism:(Range:2.0-3.0)
Prevention of systemic embolism from:
-tissue heart valves
-acute myocardial infarction
-valvular heart disease
-atrial fibrillation
(Range: 2.0-3.0)
Mechanical prosthetic valves: (Range: 2.5-3.5) Observation Date Value Abnormality Reference (Units ) Status INR in Capillary blood by Coagulation assay 09/22/2024 10:12:26 1.3 (INR) Final Performing Location
--- OUTSIDE RECORDS SUMMARY | 2024-09-26 16:07 | External Medical Summary | Summary of Care ---
Author Name Unknown Organization [facility] Address [address] [facility] [place] [address] Phone [phone] Care Team Providers Care Wire Mesh Gate Assembler Name Role Phone Natalia Heller PA-C Primary Care Provider [phone] Reason for Visit * Reason Onset Date Comments [facility]: Maintenance 09/12/2024 Encounter Details Date Type Department Care Team (Late st Contact Info) Description 09/12/2024 Telephone [facility], [address] [place] [address] Consuelo Faith, ELECTRICAL APPLIANCE MECHANIC [address] [facility] [address] [facility]: Maintenance Allergies Active Allergy Reactions Criticality Noted Date Comments Alendronate Sodium 06/24/2012 Burning sensation and difficulty breathing Proton Pump Inhibitors Hives 02/20/2002 nexium documented as of this encounter (statuses as of 09/12/2024) Medications Multiple Vitamin (DAILY VALUE MULTIVITAMIN) Tablet Take 1 Tablet by mouth in the morning. Active Fluticasone Propionate 50 MCG/ACT Nasal Suspension (Flonase)Indicatio ns:Chronic rhinitis Administer 2 Sprays into each nostril in the morning. 16 g 1 11/02/19 23 Active Warfarin Sodium 5 MG Oral Tablet (Coumadin)Indicati ons:jail current use of anticoagulant therapy,Deep vein thrombosis [...] [facility]) Use as directed. 10/04/19 24 [...] :HTN, goal below 130/80,Coronary artery disease involving [place] coronary artery of [place] heart without angina pectoris TAKE ONE TABLET [...] Tablet Sublingual (Nitrostat)Indicat ions:Coronary artery disease of [place] artery of [place] heart with stable angina pectoris (HCC) PLACE [...] as of this encounter (statuses as of 09/12/2024) Active Problems Problem Noted Date Diagnosed Date [...] artery disease of n ative artery of [place] heart with stable angina pectoris 12/08/2020 Assessment [...] as of this encounter (statuses as of 09/12/2024) Resolved Problems Problem Noted Date Diagnosed Date [...] as of this encounter (statuses as of 09/12/2024) Immunizations Name Administration Dates Next Due COVID-19 [...] 11/19/2023 Does the household have a [facility] regionr source of income? 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 Ok by Rosalind documented in this encounter Plan of Treatment Upcoming Encounters Date Type Department Care Team (Late st Contact Info) Description 09/12/2024 12:30 PM EST [facility] Visit [facility] [address] [place] [address] Rosalind Smith RN [address] [place] [address] 09/15/2024 8:00 AM EST PulmDiagnostic Pulmonary Function Lab, [facility] [address] [place] [address] [facility] Pul Function Tech [address] [place] [address] 09/17/2024 8:20 AM EST Office Visit Family Practice, [address] [phone] Natalia Heller PA-C [address] [address] 09/22/2024 10:00 AM EST Anticoagulation Pharmacy, [place] [phone] [facility] [address] [facility] [place] [address] 09/22/2024 10:10 AM EST Office Visit Pharmacy, [place] [phone] [facility] [address] [facility] [address] 09/25/2024 11:00 AM EST [facility] Visit [facility], [facility] [address] [place] [address] Radu Suazo PA-C [address] [place] [address] 09/30/2024 9:20 AM EST Office Visit [facility] Disorders Ctr [facility] [address] [place] [phone] Leslee Heath, [address] [place] [address] 10/13/2024 10:00 AM EDT [facility] [address] [place] [address] Rosalind Smith RN [address] [place] [address] 11/10/2024 11:00 AM EDT Office Visit [facility] [place] [address] [place] [address] [place] [phone] Natalia Heller PA-C [address] [place] [address] 02/18/2025 12:00 PM EDT [facility] [address] [place] [phone] Natalia Heller PA-C [address] [place] [address] Scheduled Procedures Name Priority Associated Diagnoses Date/Ti [...] D LEVEL ONCE IN A LIFETIME-USE SMARTSET# 08941 Completed 05/09/2024, 06/18/2020, 07/25/2019, Additional history exists [...] this encounter Medical Devices Implanted Type Area Mold Filler Plastic Dolls Device Identifier Shelf Expiration Date Model / Serial / Lot Graft Cervical 6x8 [id number] - [id number] Implanted:Qt y: 2 on 08/21/2008 [place] [facility] [place] - Human Spine Cervical [employer] Co [id number] / / Screw Spine 14mm [id number] - [id number] Implanted:Qt y: 2 on 08/21/2008 [place] [facility] [place] N/A: Spine Cervical CARSON [employer] CARSON DEPUY 50-014 / / Depuy [place] 14 Mm Sd Con Scr Implanted:Qt y: 2 on 08/21/2008 [place] [facility] [place] N/A: Spine Cervical CARSON [employer] CARSON DEPUY 60014 / / Description:Depuy [place] 14 mm SD con SCR 34 Mm Plate Implanted:Qt y: 1 on 08/21/2008 [place] [facility] [place] N/A: Spine Cervical / / Description:34 mm Depuy plat e 14 Mm Variable Rescue Implanted:Qt y: 2 on 08/21/2008 [place] [facility] [place] N/A: Spine Cervical / / Description:14 mm variable r escue Screw 3.5x14 Mntr Fa [id number] - [id number] Implanted:Qt y: 10 on 07/13/2010 [place] [facility] [place]/A: Spine Cervical JNJ : ETHICON CARDIOVATIONS [id number] / / Devaughn [id number] - [id number] Implanted:Qt y: 1 on 07/13/2010 [place] [facility] [place]A: Spine Cervical JNJ : ETHICON CARDIOVATIONS [id number] / / Screw Inner Mntr [id number] - [id number] Implanted:Qt y: 8 on 07/13/2010 [place] [facility] [place]A: Spine Cervical JNJ : ETHICON CARDIOVATIONS [id number] / / Nut Outer Xcon [id number] - [id number] Implanted:Qt y: 2 on 07/13/2010 [place] [facility] [place]/A: Spine Cervical JNJ : ETHICON CARDIOVATIONS [id number] / / Screw Inner Xcon [id number] - [id number] Implanted:Qt y: 2 on 07/13/2010 [place] [facility] [place]/A: Spine Cervical JNJ : ETHICON CARDIOVATIONS [id number] / / Plate 35mm Xcon [id number] - [id number] Implanted:Qt y: 1 on 07/13/2010 [place] [facility] [place]/A: Spine Cervical JNJ : ETHICON CARDIOVATIONS [id number] / / documented as of this encounter [...] the patient have Health Care Power of Merchandise Shopper? No * Full Code Date Activated Date [...] Power of Attor kim? No Care Teams Wire Mesh Gate Assembler Relationship Specialty Start Date End Date Natalia Heller PA-C [address] [place] [address] PCP - General Physician Electrical Logger 08/28/24 documented as of this encounter
--- OUTSIDE RECORDS SUMMARY | 2024-09-26 16:07 | External Medical Summary | Summary of Care ---
Author Name Unknown Organization [facility] Address [address] [place] [address] Phone [phone] Care Team Providers Care Planing Machine Operator Name Role Phone Natalia Heller PA-C Primary Care Provider [phone] Reason for Visit * Reason Onset Date Comments [facility]: Maintenance 09/12/2024 Encounter Details Date Type Department Care Team (Late st Contact Info) Description 09/12/2024 Telephone [facility], [place] [address] [place] [id number] [address], SHAKIRA [address] [place] [address] [facility]: Maintenance Allergies [...] Warfarin Sodium 5 MG Oral Tablet (Coumadin)Indicati ons:predatory animal exterminator current use of anticoagulant therapy,Deep vein thrombosis (DVT) (HCC) TAKE ONE TABLET TO ONE AND ONE-HALF TABLET BY MOUTH EVERY DAY DIRECTED BY COUMADIN CLINIC 135 Tablet 3 04/05/2024 7:59 AM EDT 09/13/19 24 025 Active Accu-Chek Guide In Vitro Strip (Glucose Blood)Indications: Type 2 diabetes mellitus with foot ulcer, with long-term current use of insulin ([facility]),DM (diabetes mellitus) type II, controlled, with peripheral vascular disorder ([facility]) Use to test blood glucose 4 times daily. E11.9 400 Strip 3 03/19/2024 12:17 PM EDT 10/04/19 24 Active Accu-Chek Guide Me w/Device KitIndications:Typ e 2 diabetes mellitus with foot ulcer, with long-term current use of insulin ([facility]),DM (diabetes mellitus) type II, controlled, with peripheral vascular disorder ([facility]) Use as directed. 10/04/19 24 Active Accu-Chek Softclix LancetsIndications :Type 2 diabetes mellitus with foot ulcer, with long-term current use of insulin ([facility]),DM (diabetes mellitus) type II, controlled, with peripheral vascular disorder ([facility]) Use to test blood glucose 4 [...] :HTN, goal below 130/80,Coronary artery disease involving port lions coronary artery of port lions heart without angina pectoris TAKE ONE TABLET [...] Tablet Sublingual (Nitrostat)Indicat ions:Coronary artery disease of port lions artery of port lions heart with stable angina pectoris (HCC) PLACE [...] disease of n ative artery of port lions heart with stable angina pectoris 12/08/2020 Assessment [...] Per Lipid Taxonomy. Cervical spinal stenosis 08/21/2008 [facility]P current use of anticoagulant therapy 0 05/03/2005 [...] No 11/19/2023 Does the household have a [facility] source of income? 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 Called and spoke to pt. Confirmed today with RNEDDIE works for pt. She will be home all day and said anytime. documented in this encounter Plan of Treatment Upcoming Encounters Date Type Department Care Team (Late st Contact Info) Description 09/12/2024 12:30 PM EST Home Visit ising at [facility] [address] [address] Rosalind Smith RN [address] [place] [address] 09/15/2024 8:00 AM EST PulmDiagnostic Pulmonary Function Lab, [facility] [address] [place] [address] [place], Pul Function Tech 2 [address] [place] [address] 09/17/2024 8:20 AM EST Office Visit Family Practice, Corky Martinez [address] [phone] Natalia Heller PA-C [address] [address] 09/22/2024 10:00 AM EST Anticoagulation Pharmacy, [address] [place] [phone] [facility] [address] [facility] [place] [address] 09/22/2024 10:10 AM EST Office Visit Pharmacy, [place] [place] [phone] [facility] [address] [address] 09/25/2024 11:00 AM EST Home Visit [facility] [address] [place] [address] Radu Suazo PA-C [address] [place] [address] 09/30/2024 9:20 AM EST Office Visit Sleep Disorders Ctr [facility] [address] [place] [phone] Leslee Heath, [address] [place] [address] 10/13/2024 10:00 AM EDT Home Visit [facility] [address] [place] [address] Rosalind Smith RN [address] [place] [address] 11/10/2024 11:00 AM EDT Office Visit Family [facility] [place] [address] [place] [phone] Natalia Heller PA-C [address] [place] [address] 02/18/2025 12:00 PM EDT [facility] [address] [place] [phone] Natalia Heller PA-C [address] [place] [address] Scheduled Procedures Name Priority Associated Diagnoses Date/Ti [...] D LEVEL ONCE IN A LIFETIME-USE SMARTSET# [id number] Completed 05/09/2024, 06/18/2020, 07/25/2019, Additional history exists [...] encounter Medical Devices Implanted Type Area Supervisor Sawmill Device Identifier Shelf Expiration Date Model / Serial / Lot Graft Cervical 6x8 [id number] - [id number] Implanted:Qt y: 2 on 08/21/2008 at [place] [facility] [place] - Human Spine Cervical [employer] [id number] / / Screw Spine 14mm [id number] - [id number] Implanted:Qt y: 2 on 08/21/2008 at [place] [facility] [place] N/A: Spine Cervical [employer] DEPUY 50014 / / Depuy [place] 14 Mm Sd Con Scr Implanted:Qt y: 2 on 08/21/2008 at [place] [facility] [place] N/A: Spine Cervical [employer] DEPUY 60014 / / Description:Depuy skyline 14 mm SD con SCR 34 Mm Plate Implanted:Qt y: 1 on 08/21/2008 at [place] [facility] [place] N/A: Spine Cervical / / Description:34 mm Depuy plat e 14 Mm Variable Rescue Implanted:Qt y: 2 on 08/21/2008 at [place] [facility] [place] N/A: Spine Cervical / / Description:14 mm variable r escue Screw 3.5x14 Mntr Fa [id number] - [id number] Implanted:Qt y: 10 on 07/13/2010 at [place] [facility] [place] N/A: Spine Cervical JNJ : [employer] [id number] / / Devaughn [id number] - [id number] Implanted:Qt y: 1 on 07/13/2010 at [place] [facility] [place] N/A: Spine Cervical JNJ : [employer] [id number] / / Screw Inner Mntr [id number] - [id number] Implanted:Qt y: 8 on 07/13/2010 at [place] [facility] [place] N/A: Spine Cervical JNJ : [employer] [id number] / / Nut Outer Xcon [id number] - [id number] Implanted:Qt y: 2 on 07/13/2010 at [place] [facility] [place] N/A: Spine Cervical JNJ : [employer] [id number] / / Screw Inner Xcon [id number] - [id number] Implanted:Qt y: 2 on 07/13/2010 at [place] [facility] [place] N/A: Spine Cervical JNJ : [employer] [id number] / / Plate 35mm Xcon [id number] - [id number] Implanted:Qt y: 1 on 07/13/2010 at [place] [facility] [place] N/A: Spine Cervical JNJ : [employer] [id number] / / documented as of this encounter [...] the patient have Health Care Power of Sap Abap Programmer? No * Full Code Date Activated Date [...] Power of Attor kim? No Care Teams Planing Machine Operator Relationship Specialty Start Date End Date Natalia Heller PA-C [address] [phone] PCP - General Physician Mortgage Professional 08/28/24 documented as of this encounter
--- OUTSIDE RECORDS SUMMARY | 2024-09-26 16:07 | External Medical Summary | Summary of Care ---
Author Name Unknown Organization [facility] Address [address] [place] [address] Phone [phone] Care Team Providers Care Manager Legal Name Role Phone Natalia Heller PA-C Primary Care Provider [phone] Reason for Visit * Reason Onset Date Comments Hospital Follow-Up 09/11/2024 Encounter Details Date Type Department Care Team (Late st Contact Info) Description [facility]/11[facility]2024 [facility] [address] [facility] [place] [phone] Natalia Heller PA-C [address] [place] [address] Hospital Follow-Up Allergies Active Allergy Reactions Criticality Noted Date Comments Alendronate Sodium 06/24/2012 Burning sensation and difficulty breathing Proton Pump Inhibitors Hives 02/20/2002 nexium documented as of this encounter (statuses as of 09/11/2024) Medications Multiple Vitamin (DAILY VALUE MULTIVITAMIN) Tablet [...] ulcer, with long-term current use of insulin ([facility]),DM (diabetes mellitus) type II, controlled, with peripheral vascular disorder ([facility]) Use to test blood glucose 4 times daily. E11.9 400 Strip 3 03/19/2024 12:17 PM EDT 10/04/19 24 Active Accu-Chek Guide Me w/Device KitIndications:Typ e 2 diabetes mellitus with foot ulcer, with long-term current use of insulin ([facility]),DM (diabetes mellitus) type II, controlled, with peripheral vascular disorder ([facility]) Use as directed. 10/04/19 24 Active Accu-Chek Softclix LancetsIndications :Type 2 diabetes mellitus with foot ulcer, with long-term current use of insulin ([facility]),DM (diabetes mellitus) type II, controlled, with peripheral vascular disorder (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 Remote Patient Monitoring Vendor: No Connected RPM Device(s): Traditional Pulse Ox Exacerbation plan Solumedrol 40mg IM/IV Chest Xray Additional Comments: Breathing at baseline today Senile osteoporosis 02/02/2012 DYSLIPIDEMIA, GOAL LDL BELOW 100 07/15/2009 Overview (07/15/2009): Per Lipid Taxonomy. 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 Upon review of [facility] chart, pt's warfarin dosing is updated on anticoag track and was discharged on warfarin 10 mg on Sun, Sun, 5 mg on all other days. Pt's INR resulted 2.8 within therapeutic range of 2-3. No warfarin dose adjustment needed for doxycycline. Called pt, was unable to reach pt, lvm toinform INR result and no change in routine [facility] (10 mg on Sun, Tue, and T vidhya; 5 mg on all other days). Will f/u and recheck INR as scheduled in 2 weeks on 09/22/24. Allie Love PharmD, [facility] PGY1 Slots Manager Medication Therapy Management Clin[facility] [place] 09/11/2024 2:22 PM * Telephone Encounter - Roma Martin RN - 09/11/2024 1:23 PM EST Graciela Mobley was discharged from [facility] on 09/11/24. Please see the following recommendations for follow up care. Follow-up with Coumadin clinic for monitoring your PT/INR and adjusting Coumadin dose as needed Get blood test(PT/INR) in 2 days and follow-up with Coumadin clinic for further instructions documented in this encounter Plan of Treatment Upcoming Encounters Date Type Department Care Team (Late st Contact Info) Description 09/15/2024 8:00 AM EST PulmDiagnostic Pulmonary Function Lab, [facility] [address] [address] [facility] Pul Function Tech 2 [address] [address] 09/17/2024 8:20 AM EST Office Visit Family Jose Daniel, Corky Martinez [address] [place] [phone] Natalia Heller PA-C [address] [place] [address] 09/22/2024 10:00 AM EST Anticoagulation Pharmacy, Corky Astorg[place] [address] [phone] [facility] [address] [place] [address] 09/22/2024 10:10 AM EST Office Visit Pharmacy, Corky [place]org[address] [place] [phone] [facility] [address] [facility] [place] [address] 09/25/2024 11:00 AM EST [facility] Visit [facility] [address] [place] [address] Radu Suazo PA-C [address] [place] [phone] 09/30/2024 9:20 AM EST Office Visit Sleep Disorders Ctr [facility] [address] [place] [phone] Leslee Heath DO [address] [place] [phone] 10/13/2024 10:00 AM EDT Home Visit [facility], [facility] [address] [place] [address] Rosalind Smith, RN [address] [place] [phone] 11/10/2024 11:00 AM EDT Office Visit Family Practice, Corky Martinez [address] [place] [phone] Natalia Heller PA-C [address] [place] [address] 02/18/2025 12:00 PM EDT [facility] [place] Mikalvu [address] [phone] Natalia Heller PA-C [address] [place] [address] Scheduled Procedures Name Priority Associated Diagnoses Date/Ti [...] D LEVEL ONCE IN A LIFETIME-USE SMARTSET# [id number] Completed 05/09/2024, 06/18/2020, 07/25/2019, Additional history exists [...] this encounter Medical Devices Implanted Type Area Labor Delivery Rn Device Identifier Shelf Expiration Date Model / Serial / Lot Graft Cervical 6x8 [id number] - [id number] Implanted:Qt y: 2 on 08/21/2008 at [place] [facility] [place] Tissue - Human Spine Cervical [employer] Co [id number] / / Screw Spine 14mm [id number] - [id number] Implanted:Qt y: 2 on 08/21/2008 at [place] [facility] [place] N/A: Spine Cervical CARSON [employer] CAR[employer] DEPUY 50-014 / / Depuy [place] 14 Mm Sd Con Scr Implanted:Qt y: 2 on 08/21/2008 at [place] [facility] N/A: Spine Cervical [employer]PUY 60-014 / / Description:Depuy skyline 14 mm SD con SCR 34 Mm Plate Implanted:Qt y: 1 on 08/21/2008 at [place] [facility] N/A: Spine Cervical [id number] / / Description:34 mm Depuy plat e 14 Mm Variable Rescue Implanted:Qt y: 2 on 08/21/2008 at [place] [facility] N/A: Spine Cervical 54-014 / / Description:14 mm variable r escue Screw 3.5x14 Mntr Fa [id number] - [id number] Implanted:Qt y: 10 on 07/13/2010 at [place] [facility] N/A: Spine Cervical JNJ : ETH[employer]ON C[employer] [id number] / / Devaughn [id number] - [id number] Implanted:Qt y: 1 on 07/13/2010 at [place] [facility] N/A: Spine Cervical JNJ : [employer] [id number] / / Screw Inner Mntr [id number] - [id number] Implanted:Qt y: 8 on 07/13/2010 at [place] [facility] N/A: Spine Cervical JNJ : [employer] [id number] / / Nut Outer Xcon [id number] - [id number] Implanted:Qt y: 2 on 07/13/2010 at [place] [facility] N/A: Spine Cervical JNJ : [employer]ATIONS [id number] / / Screw Inner Xcon [id number] - [id number] Implanted:Qt y: 2 on 07/13/2010 at [place] [facility] N/A: Spine Cervical JNJ : [employer] [id number] / / Plate 35mm Xcon [id number] - [id number] Implanted:Qt y: 1 on 07/13/2010 at [place] [facility] N/A: Spine Cervical JNJ : [employer] [id number] / / documented as of this encounter Procedures Procedure Name Priority Date/Time Associated Diagnosis Comments OUTSIDE LAB-PT/INR Routine 09/11/2024 6: 02 AM EST documented in this encounter Results * OUTSIDE LAB-PT/INR (09/11/2024 6:02 AM EST) INR-OUTSIDE LAB 2.8 09/11/2024 6:02 AM EST us History Per Patient LABORATORY Final Result documented in this encounter Visit Diagnoses Diagnosis COPD, moderate (HCC)- Primary Chronic airway obstruction, not elsewhere classified Chronic atrial fibrillation (HCC) Atrial fibrillation 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 No * Full Code Date [...] of Attor kim? No Care Teams Manager Legal Relationship Specialty Start Date End Date Natalia Heller PA-C [address] [address] PCP - General Physician Unarmed Security Guard 08/28/24 documented as of this encounter
--- OUTSIDE RECORDS SUMMARY | 2024-09-26 16:07 | External Medical Summary | Summary of Care ---
Author Name Unknown Organization [facility] Address [address] [facility] [address] Phone [phone] Care Team Providers Care Motorcycle Subassembly Repairer Name Role Phone Natalia Erazo PA-C Primary Care Provider [phone] Reason for Visit * Reason Onset Date Comments Medication Refill 09/12/2024 Encounter Details Date Type Department Care Team (Late st Contact Info) Description 09/12/2024 Refill [facility] [address] [place] [address] Rosalind Smith, RN [address] [facility] [address] Gastro-esophageal reflux disease without esophagitis* Allergies Active Allergy Reactions Criticality Noted Date Comments Alendronate Sodium 06/24/2012 Burning sensation and difficulty breathing Proton Pump Inhibitors Hives 02/20/2002 nexium documented as of this encounter (statuses as of 09/13/2024) Medications Multiple Vitamin (DAILY VALUE MULTIVITAMIN) Tablet [...] ([facility]) Use as directed. 10/04/19 24 [...] skin. 310 units in pump. Getting from novonoGistisk PAP Active Aspirin 81 MG Oral Tablet [...] :HTN, goal below 130/80,Coronary artery disease involving georgetown coronary artery of georgetown heart without angina pectoris TAKE ONE TABLET [...] Tablet Sublingual (Nitrostat)Indicat ions:Coronary artery disease of ge[place] artery of ge[place] heart with stable angina pectoris (HCC) PLACE [...] Tablet 5 11:23 AM EST 08/22/19 25 Active Additional [...] morning. 30 Tablet 1 09/12/19 25 Active Warfarin Sodium 5 MG Oral Tablet (Coumadin)Indicati ons:USP current use of anticoagulant therapy,Deep vein thrombosis (DVT) ([facility]) TAKE ONE TABLET TO ONE AND ONE-HALF TABLET BY MOUTH EVERY DAY DIRECTED BY COUMADIN CLINIC 135 Tablet 3 4 7:59 AM EDT 09/13/19 24 025 Furosemide 20 MG Oral Tablet (Lasix) Take 1 Tablet by mouth once a day on Sunday, Sunday, and Sunday only. 45 Tablet 3 4 12:17 PM EDT 12/12/19 24 025 Discontinu ed(Refill) Famotidine 40 MG Oral Tablet (Pepcid) Take 1 Tablet by mouth in the morning. 30 Tablet 1 4 11:00 AM EST 06/10/20 24 025 Discontinu ed(Refill) Hospital, Clinic, or Other Facility Administered Medication Ordered Dose Route Frequency Start Date End Date Status Albuterol Sulfate (Proventil) (2.5 MG/3ML) 0.083% inhalation solution 2.5 mgIndications:COPD with exacerbation (HCC),SOB (shortness of breath),Asthma with COPD (chronic obstructive pulmonary disease) (HCC) 2.5 mg NEBULIZER PRN 08/21/2024 08/21/2025 Active documented as of this encounter (statuses as of 09/13/2024) Active Problems Problem Noted Date Diagnosed Date [...] artery disease of n ative artery of georgetown heart with stable angina pectoris 12/08/2020 Assessment [...] as of this encounter (statuses as of 09/13/2024) Resolved Problems Problem Noted Date Diagnosed Date [...] as of this encounter (statuses as of 09/13/2024) Immunizations Name Administration Dates Next Due COVID-19 [...] 11/19/2023 Does the household have a [facility] children's hospitalr source of income? 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 Authorizing Provider: NATALIA ERAZO Famotidine 40 MG Oral Tablet (Pepcid) 30 Tab*1 Sig: Take 1 Tablet by mouth in the morning. Authorizing Provider: NATALIA ERAZO * Telephone Encounter - Rosalind Smith RN - 09/12/2024 1:39 PM EST Pt in need of a few refills Please send scripts for Furosemide and Famotidine to [facility] mail order Orders pended for your review and signature. Thank you! documented in this encounter Plan of Treatment Upcoming Encounters Date Type Department Care Team (Late st Contact Info) Description 09/15/2024 8:00 AM EST PulmDiagnostic Pulmonary Function Lab, [facility] [address] [place] [address] [facility] Pul Function Tech 2 [address] [place] [address] 09/17/2024 8:20 AM EST Office Visit [facility] Practice, [place] [place] [address] [facility] [place] [phone] Natalia Erazo PA-C [address] [address] 09/22/2024 10:00 AM EST Anticoagulation Pharmacy, [place]y Renvu [place] [phone] [facility] [address] [facility] [address] 09/22/2024 10:10 AM EST Office Visit [place], [place] [phone] [facility] [address] [facility] [address] 09/25/2024 11:00 AM EST [facility] Visit [facility] [address] [place] [address] Radu Suazo PA-C [address] [place] [address] 09/30/2024 9:20 AM EST Office Visit [facility] [address] [place] [address] Leslee Heath DO [address] [place] [address] 10/09/2024 3:00 PM EST [facility] [address] [place] [address] Rosalind Smith RN [address] [place] [address] 10/13/2024 10:00 AM EDT [facility] Visit [facility] [address] [place] [address] Rosalind Smith RN [address] [place] [address] 11/10/2024 11:00 AM EDT Office Visit Family PracticeCorkyvu [facility] [address] [place] [phone] Natalia Erazo PA-C [address] [place] [address] 02/18/2025 12:00 PM EDT Office Visit [facility] [address] [place] [phone] Natalia Erazo PA-C [address] [place] [address] Scheduled Procedures Name Priority Associated Diagnoses Date/Ti [...] D LEVEL ONCE IN A LIFETIME-USE SMARTSET# [id number] Completed 05/09/2024, 06/18/2020, 07/25/2019, Additional history exists [...] this encounter Medical Devices Implanted Type Area [employer] Device Identifier Shelf Expiration Date Model / Serial / Lot Graft Cervical 6x8 [id number] - [id number] Implanted:Qt y: 2 on 08[place]21[place] [facility] Human Spine Cervical [employer] [id number] / / Screw Spine 14mm [id number] - [id number] Implanted:Qt y: 2 on 08/21/2008 [place] [facility] [place]A: Spine Cervical [employer] CAR[employer] DEPUY 50-014 / / Depuy [place] 14 Mm Sd Con Scr Implanted:Qt y: 2 on 08/21/2008 [place] [facility]: Spine Cervical [employer] DEPUY [id number] / / Description:Depuy skyline 14 mm SD con SCR 34 Mm Plate Implanted:Qt y: 1 on 08/21/2008 [place] [facility] [place]A: Spine Cervical / / Description:34 mm Depuy plat e 14 Mm Variable Rescue Implanted:Qt y: 2 on 08/21/2008 [place] [facility] [place]/A: Spine Cervical 014 / / Description:14 mm variable r escue Screw 3.5x14 Mntr Fa [id number] - [id number] Implanted:Qt y: 10 on 07/13/2010 [place] [facility]: Spine Cervical JNJ : [employer]ON [employer] [id number] / / Devaughn [id number] - [id number] Implanted:Qt y: 1 on 07/13/2010 [place] [facility] [place]: Spine Cervical JN[place] : [employer] [id number] / / Screw Inner Mntr [id number] - [id number] Implanted:Qt y: 8 on 07/13/2010 [place] [facility] [place]: Spine Cervical JN[place] : [employer]ON [employer]ATIONS [id number] / / Nut Outer Xcon [id number] - [id number] Implanted:Qt y: 2 on 07/13/2010 [place] [facility]: Spine Cervical JNJ : [employer] [id number] / / Screw Inner Xcon [id number] - [id number] Implanted:Qt y: 2 on 07/13/2010 [place] [facility]: Spine Cervical JNJ : [employer] [id number] / / Plate 35mm Xcon [id number] - [id number] Implanted:Qt y: 1 on 07/13/2010 [place] [facility]: Spine Cervical JNJ : ETH[employer]ON [employer]ATIONS [id number] / / documented as of this encounter Visit Diagnoses Diagnosis COPD, moderate (HCC)- Primary Chronic airway obstruction, not elsewhere classified Chronic atrial fibrillation (HCC) Atrial fibrillation Coronary artery disease of georgetown artery of [place] heart with stable angina pectoris (HCC) DM (diabetes mellitus) type II, controlled, with peripheral vascular disorder (HCC) Advanced care planning/counseling discussion Other specified counseling Gastro-esophageal reflux disease without esophagitis- Primary Esophageal reflux documented in this encounter Advance Directives * [...] the patient have Health Care Power of Tile Designer? No * Full Code Date Activated Date [...] Power of Attor kim? No Care Teams Motorcycle Subassembly Repairer Relationship Specialty Start Date End Date Natalia Erazo PA-C [address] [place], [place] [address]n[place] [address] PCP - General Physician Correction Warden 08/28/24 documented as of this encounter
--- OUTSIDE RECORDS SUMMARY | 2024-09-26 16:07 | External Medical Summary | Summary of Care ---
Author Name Unknown Organization [facility] Address [address] [address] Phone [phone] Care Team Providers Care Laundry Laborer Name Role Phone Natalia Heller PA-C Primary Care Provider [phone] Encounter Details Date Type Department Care Team (Late st Contact Info) Description 09/08/2024 Population Health External Data Unspecified Department Allergies Active Allergy Reactions Criticality Noted Date Comments Alendronate Sodium 06/24/2012 Burning sensation and difficulty breathing Proton Pump Inhibitors Hives 02/20/2002 nexium documented as of this encounter (statuses as of 09/08/2024) Medications Multiple Vitamin (DAILY VALUE MULTIVITAMIN) Tablet Take 1 Tablet by mouth in the morning. Active Fluticasone Propionate 50 MCG/ACT Nasal Suspension (Flonase)Indicatio ns:Chronic rhinitis Administer 2 Sprays into each nostril in the morning. 16 g 1 11/02/19 23 Active Warfarin Sodium 5 MG Oral Tablet (Coumadin)Indicati ons:assisted current use of anticoagulant therapy,Deep vein thrombosis [...] [facility]) Use as directed. 10/04/19 24 [...] :HTN, goal below 130/80,Coronary artery disease involving tanana coronary artery of tanana heart without angina pectoris TAKE ONE TABLET [...] Tablet Sublingual (Nitrostat)Indicat ions:Coronary artery disease of tanana artery of tanana heart with stable angina pectoris (HCC) PLACE [...] as of this encounter (statuses as of 09/08/2024) Active Problems Problem Noted Date Diagnosed Date [...] artery disease of n ative artery of tanana heart with stable angina pectoris 12/08/2020 Assessment [...] the room") Medication Regimen All Classes - CHRSIS Remote Patient Monitoring Vendor: No Connected RPM Device(s): Traditional Pulse Ox Exacerbation plan Solumedrol 40mg IM/IV Chest Xray Additional Comments: Breathing at baseline today Senile osteoporosis 02/02/2012 DYSLIPIDEMIA, GOAL LDL BELOW 100 07/15/2009 Overview (07/15/2009): Per Lipid Taxonomy. 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 Not on [...] 05/02/2019 3:21 PM Selin Park, RN * Do you have serious difficulty walking or climbing stairs? (5 years old or older) Answer Date of Assessment Author No 05/02/2019 3:21 PM EDSelin Summers RN * Do you have difficulty dressing [...] Selin Park RN documented in this encounter Plan of Treatment Upcoming Encounters Date Type Department Care Team (Late st Contact Info) Description 09/15/2024 8:00 AM EST PulmDiagnostic [facility] [address] [facility] [place] [address] [facility] Pul Function Tech [address] [place] [address] 09/22/2024 10:00 AM EST Anticoagulation Pharmacy, [address] [facility] [place] [phone] [facility] [address] [facility] [place] [address] 09/22/2024 10:10 AM EST Office Visit Pharmacy, [address] [facility] [place] [phone] [facility] [address] [facility] [address] 09/25/2024 11:00 AM EST [facility] [place] [address] [place] [address] Radu Suazo PA-C [address] [place] [address] 09/30/2024 9:20 AM EST Office Visit [facility] Disorders Ctr [facility] [address] [place] [phone] Leslee Hetah DO [address] [place] [address] 10/13/2024 10:00 AM EDT [facility] [address] [place] [address] Rosalind Smith RN [address] [place] [address] 11/10/2024 11:00 AM EDT [facility] [address] [place] [phone] Natalia Heller PA-C [address] [place] [address] 02/18/2025 12:00 PM EDT [facility] [address] [place] [phone] Natalia Heller PA-C [address] [place] [address] Scheduled Procedures Name Priority Associated Diagnoses Date/Ti [...] D LEVEL ONCE IN A LIFETIME-USE SMARTSET# 41023 Completed 05/09/2024, 06/18/2020, 07/25/2019, Additional history exists [...] this encounter Medical Devices Implanted Type Area Methane Gas Collection System Operator Device Identifier Shelf Expiration Date Model / Serial / Lot Graft Cervical 6x8 [id number] - [id number] Implanted:Qt y: 2 on 08/21/[place] [facility] [place] - Human Spine Cervical [employer] [id number] / / Screw Spine 14mm 50-014 - [id number] Implanted:Qt y: 2 on 08/21/2008 [place] [facility] [place]A: Spine Cervical CARSON [employer] CARSON DEPUY 50-014 / / Depuy [place] 14 Mm Sd Con Scr Implanted:Qt y: 2 on 08/21/2008 [place] [facility] [place]A: Spine Cervical CARSON [employer] CAR[employer] DEPUY 860-014 / / Description:Depuy skyline 14 mm SD con SCR 34 Mm Plate Implanted:Qt y: 1 on 08/21/2008 [place] [facility] [place]/A: Spine Cervical / / Description:34 mm Depuy plat e 14 Mm Variable Rescue Implanted:Qt y: 2 on 08/21/2008 [place] [facility] [place]A: Spine Cervical [id number] / / Description:14 mm variable r escue Screw 3.5x14 Mntr Fa [id number] - [id number] Implanted:Qt y: 10 on 07/13/2010 [place] [facility] [place]A: Spine Cervical JNJ : ETHICON CARDIOVATIONS [id number] / / Devaughn [id number] - [id number] Implanted:Qt y: 1 on 07/13/2010 [place] [facility] [place]A: Spine Cervical JNJ : ETH[employer]ON [employer]ARDI[employer]ATIONS [id number] / / Screw Inner Mntr [id number] - [id number] Implanted:Qt y: 8 on 07/13/2010 [place] [facility] [place]A: Spine Cervical JNJ : ETH[employer]ON CARDI[employer]ATIONS [id number] / / Nut Outer Xcon [id number] - [id number] Implanted:Qt y: 2 on 07/13/2010 [place] [facility] [place]A: Spine Cervical JNJ : ETH[employer]ON CARD[employer]ATIONS [id number] / / Screw Inner Xcon [id number] - [id number] Implanted:Qt y: 2 on 07/13/2010 [place] [facility] [place]A: Spine Cervical JNJ : ETH[employer]ON CARDIOVATIONS [id number] / / Plate 35mm Xcon [id number] - [id number] Implanted:Qt y: 1 on 07/13/2010 [place] [facility] [place]A: Spine Cervical JNJ : ETHICON CARDIOVATIONS [id number] / / documented as of this encounter [...] the patient have Health Care Power of Teachers' Aide? No * Full Code Date Activated Date [...] Power of Attor kim? No Care Teams Laundry Laborer Relationship Specialty Start Date End Date Natalia Heller PA-C [address] [place] [address] [place] [address] PCP - General Physician Surgical Scrub Technician 08/28/24 documented as of this encounter
--- OUTSIDE RECORDS SUMMARY | 2024-09-26 16:07 | External Medical Summary | Summary of Care ---
Author Name Unknown Organization [facility] Address [address] [facility] [place] [address] Phone [phone] Care Team Providers Care Farm Equipment Mechanic Apprentice Name Role Phone Natalia Heller PA-C Primary Care Provider [phone] [phone] Reason for Visit * Reason Onset Date Comments Medication Refill 09/12/2024 Encounter Details Date Type Department Care Team (Late st Contact Info) Description 09/12/2024 Telephone [facility], [facility] [address] [employer] [address] [address] [place] [address] Rosalind Smith, RN [address] [employer] [address] [place] [address] Medication Refill Allergies Active Allergy Reactions Criticality Noted Date Comments Alendronate Sodium 06/24/2012 Burning sensation and difficulty breathing Proton Pump Inhibitors Hives 02/20/2002 nexium documented as of this encounter (statuses as of 09/12/2024) Medications Multiple Vitamin (DAILY VALUE MULTIVITAMIN) Tablet Take 1 Tablet by mouth in the morning. Active Fluticasone Propionate 50 MCG/ACT Nasal Suspension (Flonase)Indicati ons:Chronic rhinitis Administer 2 Sprays into each nostril in the morning. 16 g 1 023 Active Accu-Chek Guide Me w/Device KitIndications:Ty pe 2 diabetes mellitus with foot ulcer, with long-term current use of insulin (HCC),DM (diabetes mellitus) type II, controlled, with peripheral vascular disorder ([facility]) Use as directed. Active Accu-Chek Softclix LancetsIndication s:Type 2 diabetes mellitus with foot ulcer, with long-term current use of insulin ([facility]),DM (diabetes mellitus) type II, controlled, with peripheral vascular disorder ([facility]) Use to test blood glucose 4 times daily. DX: E11.9 400 Each 3 10/05/19 24 6:57 AM EST Active Rosuvastatin Calcium 20 MG Oral Tablet (Crestor)Indicati ons:Dyslipidemia, goal LDL below 70 Take 1 Tablet by mouth in the morning. 90 Tablet 3 05/20/20 24 6:57 AM EDT Active Insulin Aspart 100 UNIT/ML Injection Solution (NovoLOG) Inject under the skin. 310 units in pump. Getting from [employer] PAP Active Aspirin 81 MG Oral Tablet Delayed Release Take 1 Tablet by mouth in the morning. Active Potassium Chloride ER 10 MEQ Oral Capsule Extended Release Take 1 Capsule by mouth once a day on Sunday, Sunday, and Sunday only. 45 Capsule 3 Active Metoprolol Succinate ER 50 MG Oral Tablet Extended Release 24 Hour (toPROL XL) TAKE ONE TABLET BY MOUTH TWICE A DAY 180 Tablet 3 05/09/20 24 8:51 AM EDT 024 2024 Active Isosorbide Mononitrate ER 60 MG Oral Tablet Extended Release 24 Hour (Imdur)Indication s:HTN, goal below 130/80,Coronary artery disease involving [place] coronary artery of [place] heart without angina pectoris TAKE ONE TABLET BY MOUTH EVERY MORNING 90 Tablet 3 05/09/20 24 8:51 AM EDT 024 2024 Active metFORMIN HCl 1000 MG Oral Tablet (Glucophage)Indic ations:DM type 1 causing neurological disease, not at goal (HCC) TAKE ONE TABLET BY MOUTH TWICE A DAY WITH FOOD 200 Tablet 3 06/13/20 24 3:44 PM EST 024 2024 Active Vitamin B12 500 MCG Oral Tablet Take by mouth daily. Active Nitroglycerin 0.3 MG Sublingual Tablet Sublingual (Nitrostat)Indica tions:Coronary artery disease of [place] artery of [place] heart with stable angina pectoris (HCC) PLACE 1 TABLET UNDER THE TONGUE EVERY 5 MINUTES UP TO 3 DOSES NEEDED FOR CHEST PAIN. IF NO RELIEF CALL 911 OR GO TO ER 25 Tablet 11 02/08/20 24 8:35 AM EDT 024 2024 Active Sertraline HCl 50 MG Oral Tablet (Zoloft) TAKE 1 AND 1/2 TABLETS BY MOUTH AT BEDTIME 135 Tablet 1 Active Pregabalin 150 MG Oral Capsule (Lyrica)Indicatio ns:Diabetic polyneuropathy associated with type 1 diabetes mellitus ([facility]) TAKE ONE CAPSULE BY MOUTH TWICE A DAY 180 Capsule 1 05/10/20 24 8:07 AM EDT 024 2024 Active Mirtazapine 30 MG Oral Tablet (Remeron)Indicati ons:Primary insomnia,Poor appetite Take 1 Tablet by mouth at bedtime. 30 Tablet Active Additional Information Patient not taking.Reported on 09/12/2024 Albuterol Sulfate HFA 108 (90 Base) MCG/ACT Inhalation Aerosol Solution Inhale 2 puffs by mouth 4 times daily 20.1 g 2 Active traZODone HCl 50 MG Oral Tablet (Desyrel) Take 1 Tablet by mouth at bedtime. 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 E11.9 400 Strip 3 03/19/20 24 12:17 PM EDT 2024 Discontinued Furosemide 20 MG Oral Tablet (Lasix) Take 1 Tablet by mouth once a day on Sunday, Sunday, and Sunday only. 45 Tablet 3 03/19/20 24 12:17 PM EDT 2024 Discontinued(R efill) Famotidine 40 MG Oral Tablet (Pepcid) Take 1 Tablet by mouth in the morning. 30 Tablet 1 07/11/20 24 11:00 AM EST 2024 Discontinued(R efill) Hospital, Clinic, or Other Facility Administered Medication [...] mcdermitt heart with stable angina pectoris 12/08/2020 Assessment [...] Per Lipid Taxonomy. 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 would like to pick these up at [facility] I was unable to pend the orders for you, says they are no longer available for ordering The order is for Accu-Chek Guide In Vitro Strips. Thank you! documented in this encounter Plan of Treatment Upcoming Encounters Date Type Department Care Team (Late st Contact Info) Description 09/15/2024 8:00 AM EST PulmDiagnostic Pulmonary Function Lab, [facility] [address] [place] [address] [place], Pulm Function Tech 2 [address] [place] [address] 09/17/2024 8:20 AM EST Office [facility], [place] [address] [facility] [place] [phone] Natalia Heller PA-C [address] [place] [place] [address] 09/22/2024 10:00 AM EST [facility] [place] [phone] [facility] [address] [facility] [address] 09/22/2024 10:10 AM EST Office Visit Pharmacy, [place] [facility] [place] [phone] [facility] [address] [facility] [address] 09/25/2024 11:00 AM EST [facility] Visit [facility] [address] [place] [address] Radu Suazo PA-C [address] [place] [address] 09/30/2024 9:20 AM EST Office Visit [facility] [address] [place] [address] Leslee Heath, [address] [place] [address] 10/09/2024 3:00 PM EST [facility] Visit [facility], [facility] [address] [place] [address] Rosalind Smith, RN [address] [place] [address] 10/13/2024 10:00 AM EDT Home Visit [facility], [facility] [address] [place] [address] Rosalind Smith, LO [address] [place] [address] 11/10/2024 11:00 AM EDT [facility] [address] [place] [phone] Natalia Heller PA-C [address] [place] [address] 02/18/2025 12:00 PM EDT [facility] [address] [place] [phone] Natalia Heller PA-C [address] [place] [address] Scheduled Procedures Name Priority Associated Diagnoses Date/Ti [...] D LEVEL ONCE IN A LIFETIME-USE SMARTSET# [id number] Completed 05/09/2024, 06/18/2020, 07/25/2019, Additional history exists [...] this encounter Medical Devices Implanted Type Area Knurling Machine Operator Device Identifier Shelf Expiration Date Model / Serial / Lot Graft Cervical 6x8 [id number] - [id number] Implanted:Qt y: 2 on 08/21/2008 at OR [facility] [place] Tissue - Human Spine Cervical [employer] [id number] / / Screw Spine 14mm 8-50-014 - [id number] Implanted:Qt y: 2 on 08/21/2008 at OR [facility] [place] N/A: Spine Cervical [employer] DEPUY 8-50-014 / / Depuy Cashion 14 Mm Sd Con Scr Implanted:Qt y: 2 on 08/21/2008 at OR [facility] [place] N/A: Spine Cervical [employer] DEPUY 8-60-014 / / Description:Depuy skyline 14 mm SD con SCR 34 Mm Plate Implanted:Qt y: 1 on 08/21/2008 at OR [facility] [place] N/A: Spine Cervical 8034 / / Description:34 mm Depuy plat e 14 Mm Variable Rescue Implanted:Qt y: 2 on 08/21/2008 at OR [facility] [place] N/A: Spine Cervical 854-014 / / Description:14 mm variable r escue Screw 3.5x14 Mntr Fa [id number] - [id number] Implanted:Qt y: 10 on 07/13/2010 at OR [facility] [place] N/A: Spine Cervical JNJ : [employer] [id number] / / Devaughn [id number] [id number] - [id number] Implanted:Qt y: 1 on 07/13/2010 at OR [facility] [place] N/A: Spine Cervical JNJ : [employer] [id number] / / Screw Inner Mntr [id number] - [id number] Implanted:Qt y: 8 on 07/13/2010 at OR [facility] [place] N/A: Spine Cervical JNJ : [employer]ATIONS [id number] / / Nut Outer Xcon [id number] - [id number] Implanted:Qt y: 2 on 07/13/2010 at OR [facility] [place] N/A: Spine Cervical JNJ : [employer]ATIONS [id number] / / Screw Inner Xcon [id number] - [id number] Implanted:Qt y: 2 on 07/13/2010 at OR [facility] [place] N/A: Spine Cervical JNJ : [employer]ATIONS [id number] / / Plate 35mm Xcon [id number] - [id number] Implanted:Qt y: 1 on 07/13/2010 at [place] [facility] [place] N/A: Spine Cervical JNJ : [employer]ATIONS [id number] / / documented as of this encounter [...] the patient have Health Care Power of Risk Lead? No * Full Code Date Activated Date [...] Power of Attor kim? No Care Teams Farm Equipment Mechanic Apprentice Relationship Specialty Start Date End Date Natalia Heller PA-C [address] [place] [address] PCP - General Physician Blood Donor Recruiter Supervisor 08/28/24 documented as of this encounter
--- OUTSIDE RECORDS SUMMARY | 2024-09-26 16:07 | External Medical Summary | Summary of Care ---
Author Name Unknown Organization [facility] Address [address] [facility] [place] [address] Phone [phone] Care Team Providers Care Market Development Director Name Role Phone Natalia Heller PA-C Primary Care Provider [phone] Reason for Visit * Reason Comments Pulmonary Function Test Encounter Details Date Type Department Care Team (Late st Contact Info) Description 09/15/2024 8:00 AM EST PulmDiagnostic Pulmonary Function Lab, [facility] [address] [place] [address] [facility] Function Tech 2 [address] [facility] [place] [address] COPD with exacerbation ([facility])*; SOB (shortness of breath); 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 310 units in pump. Getting from [employer] PAP Active Aspirin 81 MG Oral Tablet [...] :HTN, goal below 130/80,Coronary artery disease involving [place] coronary artery of [place] heart without angina pectoris TAKE ONE TABLET [...] Tablet Sublingual (Nitrostat)Indicat ions: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 (HCC) PLACE [...] Kit Use to check bg 1 Kit 09/12/19 25 Active Hospital, Clinic, or Other [...] artery disease of n ative artery of northway heart with stable angina pectoris 12/08/2020 Assessment [...] No 11/19/2023 Does the household have a carrie tingley hospitallar source of income? 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 documented in this encounter Plan of Treatment Upcoming Encounters Date Type Department Care Team (Late st Contact Info) Description 09/17/2024 8:20 AM EST [facility] [address] [place] [phone] Natalia Heller PA-C [address] [place] [address] 09/22/2024 10:00 AM EST Anticoagulation Pharmacy, [place]y [place] [address] [place] [phone] [place] [address] 09/22/2024 10:10 AM EST Office Visit Pharmacy, Corky [place] [address] [place] [phone] [facility] [address] [facility] [place] [address] 09/25/2024 11:00 AM EST [facility], [facility] [address] [place] [address] Radu Suazo PA-C [address] [place] [address] 09/30/2024 9:20 AM EST Office Visit [facility] [address] [place] [phone] Leslee Heath DO [address] [place] [address] 10/09/2024 3:00 PM EST Home Visit [facility], [facility] [address] [place] [address] Rosalind Smith, RN [address] [place] [address] 10/13/2024 10:00 AM EDT Home Visit [facility], [facility] [address] [place] [address] Rosalind Smith, RN [address] [place] [address] 11/10/2024 11:00 AM EDT Office Visit [facility], [place] [address] [place] [phone] Natalia Heller PA-C [address] [place] [place] [address] 02/18/2025 12:00 PM EDT Office Visit [facility] [place] [address] [place] [phone] Natalia Heller PA-C [address] [place] [address] Pending Results Name Type Priority Associated Diagnoses Date /Time DIFFUSION CAPACITY (DLCO) Procedures Routine COPD with exacerbation (HCC) SOB (shortness of breath) Asthma with COPD (chronic obstructive pulmonary disease) ([facility]) 09/15/2024 8:03 AM EST LUNG VOLUMES (PLETHYSMOGRAPHY) Procedures Routine COPD with exacerbation (HCC) SOB (shortness of breath) Asthma with COPD (chronic obstructive pulmonary disease) ([facility]) 09/15/2024 8:03 AM EST SPIROMETRY B/A BRONCHODILATOR Procedures Routine COPD with exacerbation (HCC) SOB (shortness of breath) Asthma with COPD (chronic obstructive pulmonary disease) ([facility]) Former cigarette smoker 09/15/2024 8:03 AM EST Scheduled Procedures Name Priority Associated [...] D LEVEL ONCE IN A LIFETIME-USE SMARTSET# 34933 Completed 05/09/2024, 06/18/2020, 07/25/2019, Additional history exists [...] this encounter Medical Devices Implanted Type Area Regional Psychiatric Director Device Identifier Shelf Expiration Date Model / Serial / Lot Graft Cervical 6x8 [id number] - [id number] Implanted:Qt y: 2 on 08/21/2008 at [place] [facility] Tissue - Human Spine Cervical [employer] [id number] / / Screw Spine 14mm - [id number] Implanted:Qt y: 2 on 08/21/2008 at OR [facility] N/A: Spine Cervical CARSON [employer] CARSON DEPUY [id number] / / Depuy [place] 14 Mm Sd Con Scr Implanted:Qt y: 2 on 08/21/2008 at OR [facility] N/A: Spine Cervical [employer] DEPUY 60 / / Description:Depuy skyline 14 mm SD con SCR 34 Mm Plate Implanted:Qt y: 1 on 08/21/2008 at OR [facility] N/A: Spine Cervical / / Description:34 mm Depuy plat e 14 Mm Variable Rescue Implanted:Qt y: 2 on 08/21/2008 at [place] [facility] N/A: Spine Cervical / / Description:14 mm variable r escue Screw 3.5x14 Mntr Fa [id number] - [id number] Implanted:Qt y: 10 on 07/13/2010 at [place] [facility] N/A: Spine Cervical JNJ : ETHICON CARDIOVATIONS [id number] / / Devaughn [id number] - [id number] Implanted:Qt y: 1 on 07/13/2010 at [place] [facility] N/A: Spine Cervical JNJ : ETH[employer]ON CARDIOVATIONS [id number] / / Screw Inner Mntr [id number] - [id number] Implanted:Qt y: 8 on 07/13/2010 at [place] [facility] N/A: Spine Cervical JNJ : ETH[employer]ON CARDIOVATIONS [id number] / / Nut Outer Xcon [id number] - [id number] Implanted:Qt y: 2 on 07/13/2010 at [place] [facility] N/A: Spine Cervical JNJ : [employer]ATIONS [id number] / / Screw Inner Xcon [id number] - [id number] Implanted:Qt y: 2 on 07/13/2010 at [place] [facility] N/A: Spine Cervical JNJ : ETH[employer]ON C[employer]IOVATIONS [id number] / / Plate 35mm Xcon [id number] - [id number] Implanted:Qt y: 1 on 07/13/2010 at [place] [facility] N/A: Spine Cervical JNJ : ETH[employer]ON C[employer]IOVATIONS [id number] / / documented as of this encounter Procedures Procedure Name Priority Date/Time Associated Diagnosis Comments DIFFUSION CAPACITY (DLCO) Routine 2024 8:03 AM EST COPD with exacerbation (HCC) SOB (shortness of breath) Asthma with COPD (chronic obstructive pulmonary disease) ([facility]) LUNG VOLUMES (PLETHYSMOGRAPHY) Routine 09/15/2024 8:03 AM EST COPD with exacerbation (HCC) SOB (shortness of breath) Asthma with COPD (chronic obstructive pulmonary disease) ([facility]) SPIROMETRY B/A BRONCHODILATOR Routine 09/15/2024 8:03 AM EST COPD with exacerbation (HCC) SOB (shortness of breath) Asthma with COPD (chronic obstructive pulmonary disease) ([facility]) Former cigarette smoker documented in this encounter Visit Diagnoses Diagnosis COPD, moderate ([facility])- Primary Chronic airway obstruction, not elsewhere classified Chronic atrial fibrillation ([facility]) Atrial fibrillation 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 ([facility]) DM (diabetes mellitus) type II, controlled, with peripheral vascular disorder ([facility]) Advanced care planning/counseling discussion Other specified counseling COPD with exacerbation ([facility])- Primary Obstructive chronic bronchitis with exacerbation SOB (shortness of breath) Shortness of breath Asthma with COPD (chronic obstructive pulmonary disease) ([facility]) Chronic obstructive asthma, unspecified Former cigarette smoker Personal history of tobacco use, presenting hazards to health documented in this encounter Administered Medications Active Administered Medications - up to 3 most recent administrations Medication Order MAR Action Action Date Dose Rate Site Albuterol Sulfate (Proventil) (2.5 MG/3ML) 0.083% inhalation solution 2.5 mg 2.5 mg, Nebulizer, PRN Other, ONCE FOR PFT, Starting on Sun08/21/24 at 1200, Until Sun08/21/25 at 1159, For 365 daysIndications:COPD with exacerbation (HCC),SOB (shortness of breath),Asthma with COPD (chronic obstructive pulmonary disease) ([facility]) Given 09/15/2024 8:23 AM EST 2.5 mg documented in this encounter Advance Directives * [...] the patient have Health Care Power of Ice Cream Van Vendor? No * Full Code Date Activated Date [...] Power of Attor kim? No Care Teams Market Development Director Relationship Specialty Start Date End Date Natalia Heller PA-C [facility] [place] [address] PCP - General Physician Sales Enablement Analyst 08/28/24 documented as of this encounter
--- NOTE | 2024-09-26 16:32 | Ultrasound Report ---
Examination: Doppler venous ultrasound of the lower extremity Comparison: None Technique: Grayscale evaluation with compression, spectral flow, and color Doppler assessment of the deep venous system of the leg, from the groin to the knee, as well as the lower leg Findings: The external iliac, common femoral, femoral, popliteal, and posterior tibial veins demonstrate normal compressibility and blood flow. Impression: No evidence for DVT of the bilateral lower extremity Electronically signed by Isaac Heath 09-26-2024 4:31 PM
[2024-09-26] MEDS ORDERED: GLUCAGON FOR INJ 1 MG VIAL SQ PRN (16:35)
[2024-09-26] MEDS ORDERED: PHARMACY GLYCEMIC MGMT CONSULT PRN (16:35)
[2024-09-26] MEDS ORDERED: DEXTROSE 50% 50 ML SYRINGE IV PRN (16:35)
[2024-09-26] MEDS ORDERED: POLYETHYLENE (MIRALAX) 17 GM PACK PO PRN (16:35)
[2024-09-26] MEDS ORDERED: GLUCOSE 10 TAB/TUBE PO PRN (16:35)
[2024-09-26] MEDS ORDERED: GLUCOSE 40% GEL 15 GM TUBE PO PRN (16:35)
[2024-09-26] MEDS ORDERED: ALBUT/IPRATROP 3MG/0.5MG NEB 3 ML VIAL NEB PRN (16:35)
[2024-09-26] MEDS ORDERED: MAGNESIUM HYDROXIDE SUSP 30 ML UDC PO PRN (16:35)
[2024-09-26 17:07] LABS: Appearance Urine Clear (Clear); Bilirubin Urine Negative (Negative); Blood Urine Negative (Negative); Color Urine Yellow; Glucose Urine UA Negative (Negative); Ketones Urine Negative (Negative); Leukocyte Esterase Urine Negative (Negative); Nitrite Urine Negative (Negative); Protein Urine Negative (Negative); Specific Gravity Urine 1.009 (1.000-1.030); Urobilinogen Urine Negative (Negative)
[2024-09-26] MEDS: INSULIN ASPART PER UNIT CHARGE SC SCH (17:32)
[2024-09-26] MEDS: traZODone HCL 50 MG TAB PO SCH (20:14)
[2024-09-26] MEDS: PREGABALIN 150 MG CAP PO SCH (20:14)
[2024-09-26] MEDS: SERTRALINE HCL 50 MG TABLET PO SCH (20:14)
[2024-09-26] MEDS: METOPROLOL SUCC 50MG EXT REL TAB PO SCH (20:14)
[2024-09-26] MEDS: LANTUS PER UNIT CHARGE SQ SCH (20:15)
[2024-09-26] MEDS ORDERED: LANTUS PER UNIT CHARGE SQ SCH (21:00)
[2024-09-27 06:53] LABS: Hematocrit (blood only) 32.5 % (37.0-47.0); Hemoglobin 10.4 g/dl (12.0-16.0); Mean Corpuscular Hemoglobin 29.4 pg (25.0-34.0); Mean Corpuscular Volume 91.8 fL (80.0-100.0); Platelet Count 157 K/uL (130-400); RDW Coefficient of Variation 15.5 % (11.5-14.5); RDW Standard Deviation 52.2 fL (36.4-46.3); Red Blood Count 3.54 M/uL (4.20-5.40); White Blood Count 5.27 K/ul (4.8-10.8)
[2024-09-27 07:17] LABS: INR 3.1 (0.9-1.1); Prothrombin Time 30.6 Seconds (9.0-12.0)
[2024-09-27 07:24] LABS: BUN Creatinine Ratio 25.2 (10-20); Calcium 8.8 mg/dl (8.6-10.3); Creatinine Clr Calc Pharmacy 54.6 ml/min; Phosphorus 3.6 mg/dl (2.5-4.9)
[2024-09-27] MEDS: FLUTICASONE PROPIONATE NA SPR 16 GM BTL SCH (07:59)
[2024-09-27] MEDS: ROSUVASTATIN CALCIUM 20 MG TAB PO SCH (08:01)
[2024-09-27] MEDS: ASPIRIN 81 MG ECTAB PO SCH (08:01)
[2024-09-27] MEDS: FAMOTIDINE 40 MG TABLET PO SCH (08:01)
[2024-09-27] MEDS: CYANOCOBALAMIN (B-12) 500 MCG TABLET PO SCH (08:01)
[2024-09-27] MEDS: CHOLECALCIFEROL 25 MCG (1000 UNITS) TAB PO SCH (08:01)
[2024-09-27] MEDS: MULTIVITAMIN TAB PO SCH (08:02)
[2024-09-27] MEDS: ISOSORBIDE MONO EXTENDED REL 60 MG TABCR PO SCH (08:02)
[2024-09-27] MEDS: LANTUS PER UNIT CHARGE SQ ONE (08:03)
[2024-09-27] MEDS: FUROSEMIDE 40 MG/4 ML VIAL IV SCH (08:11)
[2024-09-27] MEDS ORDERED: FUROSEMIDE 40 MG/4 ML VIAL IV SCH (09:00)
--- NOTE | 2024-09-27 09:25 | Cardiology Consultation ---
Date of Consultation September 27, 2024 Assessment & Plan (1) Acute on chronic diastolic heart failure: (2) Acute hypoxic respiratory failure: (3) Chronic atrial fibrillation: Plan Acute on chronic diastolic HF Acute hypoxic resp failure Permanent AF CAD -MEDICATION NURSE RCA with collaterals, 30-40% prox LCx and mild irregularities elsewhere; medical management recommended 11/2023 -CATH complicated by AF RVR and hypotension requiring JORGE/DCCV HTN Mild aortic stenosis PFO COPD Hx DVTs DM -Patient with acute on chronic diastolic HF and acute resp failure -ACS ruled out. -Troponin slightly elevated but flat due to demand supply ischemia in setting of hypoxia. EKG without acute changes -Responding well to IV diuresis with -750 out. -Continue IV lasix 40mg BID -QTc prolonged on EKG. - Avoid QT prolonging medications. - Monitor electrolytes. Recommend K >4, magnesium >2 Repeat EKG as scheduled -Telemetry reviewed. Heart rate is well controlled Case discussed with Dr Flowers. I spent a total of 46 minutes on the date of service in preparation, delivery, and documentation of the care provided to this patient, excluding any time spent in the performance of separately billed services. Patito Galan PA-C Department of Cardiology, [facility] This chart was completed in part utilizing Speech Voice Recognition Software. Grammatical errors, random word insertions, pronoun errors, and incomplete sentences are an occasional consequence of this system due to software limitations, ambient noise, and hardware issues. Any formal questions or concerns about the content, text, or information contained within the body of this dictation should be directly addressed to the provider for clarification. Supervising Physician Co-Signing Physician Notes I spent a total of 55 minutes on the date of service in preparation, delivery, and documentation of the care provided to this patient, excluding any time spent in the performance of separately billed services. I have personally performed a history and physical examination on the patient. I have reviewed the advance practitioner's documentation, and I agree with, and take responsibility for the plan of care. History of Present Illness Reason for Consultation: CHF Requesting Physician: Dr Thomas Attending Physician: Daryl Thomas MD History of Present Illness Graciela Mobley is a 74 year old female with PMHx permanent AF, CAD (MEDICATION NURSE RCA with collaterals, 30-40% prox LCx and mild irregularities elsewhere; medical management recommended), HTN, mild aortic stenosis, PFO, COPD, Hx DVTs, DM who presented to [facility] ED with shortness of breath x1 day. PER EMR At home patients 02 in the 80s. Placed on nonrebreather mask with 10L 02. Decreased to 4L in ED. Patient recently admitted to [facility] 09/05-09/11/2024 with COPD exacerbation secondary to RSV infection and bronchitis, DKA and acute on chronic diastolic HF. Weaned off 02 prior to discharge. Weight is up 5 pounds since 08/21/2024. Increased by 2.6 lbs since recent hospital discharge 09/11/2024 Compliant at home with lasix 20mg MWF with potassium 10meq MWF Follows low salt diet and fluid restriction at home. Feeling better today. Breathing has improved. Remains on 3L supplemental 02 Allergies Allergy/AdvReac Type Severity Reaction Status Date / Time alendronate sodium Allergy Severe DIFFICULTY Verified 09/21/22 22:31 BREATHING/BURNING SENSATION esomeprazole Allergy Intermediate Hives Verified 09/21/22 22:31 Home Medications Medication Instructions Recorded Confirmed Type albuterol sulfate 90 mcg/actuation 2 puff inhalation QID PRN 01/12/20 09/26/24 History aerosol inhaler (Ventolin HFA) Shortness Of Breath Or Wheezing fluticasone propionate 50 2 spray intranasal QAM 01/12/20 09/26/24 History mcg/actuation nasal spray,suspension (Flonase Allergy Relief) metformin 1,000 mg tablet 1,000 mg PO BIDM 01/12/20 09/26/24 History nitroglycerin 0.3 mg sublingual 0.3 mg sublingual .PRN/UD PRN 01/12/20 09/26/24 History tablet (Nitrostat) Chest Pain pregabalin 150 mg capsule 150 mg PO BID 01/12/20 09/26/24 History sertraline 50 mg tablet 75 mg PO HS 01/12/20 09/26/24 History trazodone 50 mg tablet 50 mg PO HS 01/12/20 09/26/24 History warfarin 5 mg tablet See Rx Instructions .Route .COMPLEX 01/12/20 09/26/24 History cholecalciferol (vitamin D3) 25 1,000 unit PO QAM #30 caps 01/19/20 09/26/24 Rx mcg (1,000 unit) capsule multivitamin (Daily-Moiz tablet) 1 tab PO QAM #30 tabs 01/19/20 09/26/24 Rx metoprolol succinate 50 mg 50 mg PO BID #60 tabs 01/23/20 09/26/24 Rx tablet,extended release 24 hr cyanocobalamin (vitamin B-12) 1,000 mcg sublingual DAILY 09/21/22 09/26/24 History 1,000 mcg sublingual tablet aspirin 81 mg tablet,delayed 81 mg PO QAM 11/15/23 09/26/24 History release insulin aspart U-100 100 unit/mL See Rx Instructions .Route .COMPLEX 11/15/23 09/26/24 History subcutaneous solution (Novolog U-100 Insulin aspart) isosorbide mononitrate 60 mg 60 mg PO QAM 11/15/23 09/26/24 History tablet,extended release 24 hr rosuvastatin 20 mg tablet 20 mg PO QAM 11/15/23 09/26/24 History furosemide 20 mg tablet 20 mg PO 3XWK #30 tabs 11/17/23 09/26/24 Rx potassium chloride 20 mEq 20 meq PO 3XWK #30 tabs 11/17/23 09/26/24 Rx tablet,extended release famotidine 40 mg tablet 40 mg PO DAILY 09/05/24 09/26/24 History Patient History Medical History Benign neoplasm of colon Osteoarthritis History of DVT (deep vein thrombosis) "RLE x 2 in 1980s" 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) "Abnormal left breast mammogram 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 Estrogen receptor positive and progesterone receptor positive Status post lumpectomy with sentinel lymph node biopsy stage [id number] 04/07/2015 Status post completion of radiation therapy 07/21/2015 received 6640 cGy" On 07/25/15 17:54 Jayleen Bates wrote "Abnormal left breast mammogram 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 Estrogen receptor positive and progesterone receptor positive Status post lumpectomy with sentinel lymph node biopsy stage [id number] 04/07/2015 Status post completion of radiation therapy 07/21/2015 received 6640 cGy" On 07/25/15 17:49 Jayleen Zaragoza Bates wrote "Abnormal left breast mammogram 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 Estrogen receptor positive and progesterone receptor positive Status post lumpectomy with sentinel lymph node biopsy stage [id number] 04/07/2015" Surgical History H/O partial mastectomy "left breast 04/2015 with lymph node biopsy" H/O arthroscopic knee surgery H/O colonoscopy History of carpal tunnel surgery S/P cervical spinal fusion S/P dilation and curettage H/O vein stripping Family History Other Breast cancer Diabetes Heart disease Social History Smoking Status: Former smoker Tobacco Type: Cigarettes Second Hand Exposure: No; Do You Dip or Chew Tobacco: No; Hx Alcohol Use: No Hx Substance Use: No Preferred Language: Yakut Communication Ability: Effective Production Internship Required: No Beliefs That Will Affect Care: None Current Living Situation: Family Current Living Situation Comment: lives at home with and step-son Feels Safe at Home: Yes Safety Concerns: Feels Safe At This Time Assistive Devices: Denture - Upper and Walker Review of Systems Review of Systems: All systems reviewed & are unremarkable except as noted in HPI & below Respiratory: + dyspnea on exertion Physical Exam Constitutional: WD/WN, vitals as above Respiratory: + tachypneic Auscultation: lungs desiree r to auscultation bilaterally Cardiovascular: RRR, no murmur, no edema +abdomen distended Skin: no rashes, warm and dry Psychiatric: A+Ox3, euthymic affect Results & Data Vital Signs (Past 12 Hours) Vital Signs Temp Pulse Pulse Resp BP Pulse Ox O2 Del Method 09/27/24 07:33 76 09/27/24 07:25 37.0 C 76 19 128/88 96 Nasal Cannula 09/27/24 03:19 36.4 C L 81 18 127/74 94 Nasal Cannula 09/26/24 21:51 80 O2 Flow Rate 09/27/24 07:33 09/27/24 07:25 3.0 09/27/24 03:19 3.0 09/26/24 21:51 Laboratory Results Cardiac Enzymes 09/26/24 09/26/24 09/26/24 Range/Units 12:25 14:38 20:58 AST 30 (13-39) U/L Troponin I High Sens 25.6 H 28.4 H 22.7 H (0-14) pg/ml B-Natriuretic Peptide 964 H (0-100) pg/ml 09/27/24 09/27/24 Range/Units 02:07 08:16 AST (13-39) U/L Troponin I High Sens 18.4 H D 16.3 H (0-14) pg/ml B-Natriuretic Peptide (0-100) pg/ml Coagulation 09/26/24 09/27/24 Range/Units 12:25 06:17 PT 35.3 H 30.6 H (9.0-12.0) Seconds APTT 32 H (21-31) Seconds B-Natriuretic Peptide 964 H (0-100) pg/ml CBC 09/26/24 09/27/24 Range/Units 12:25 06:17 WBC 9.35 5.27 (4.8-10.8) K/ul RBC 3.64 L 3.54 L (4.20-5.40) M/uL Hgb 10.7 L 10.4 L (12.0-16.0) g/dl Hct 33.7 L 32.5 L (37.0-47.0) % Plt Count 193 157 (130-400) K/uL Neut # (Auto) 7.24 H (1.40-6.50) K/uL Lymph # (Auto) 1.22 (1.20-3.40) K/uL [place] # (Auto) 0.61 H (0.11-0.59) K/uL Eos # (Auto) 0.18 (0.00-0.50) K/uL Baso # (Auto) 0.05 (0.00-0.20) K/uL Comprehensive Metabolic Panel 09/26/24 09/27/24 Range/Units 12:25 06:17 Sodium 140 135 L (136-145) mmol/L Potassium 4.4 5.0 (3.5-5.1) mmol/L Chloride 105 99 (98-107) mmol/L Carbon Dioxide 31 29 (21-32) mmol/L BUN 11 26 H (6-23) mg/dl Creatinine 0.70 1.03 D (0.6-1.2) mg/dl Glucose 94 402 H* (70-99(Fasting)) mg/dl Calcium 9.0 8.8 (8.6-10.3) mg/dl AST 30 (13-39) U/L ALT 20 (7-52) U/L Alkaline Phosphatase 115 H (34-104) U/L Total Protein 7.0 (6.0-8.3) gm/dl Albumin 3.6 (3.4-5.0) gm/dl Intake and Output 09/26/24 09/27/24 09/27/24 22:59 06:59 14:59 Intake Total 350 / 510 160 / 510 240 / 240 Output Total 1000 / 1500 500 / 1500 Balance -650 / -990 -340 / -990 240 / 240 Intake: IV 100 / 100 Magnesium Sulfate / D5w 1 gm In 100 / 100 100 ml @ 50 mls/hr IV ONE ONE Rx#:[id number] Oral 250 / 410 160 / 410 240 / 240 Output: Urine Amount (Catheter) 1000 / 1500 500 / 1500 External 1000 / 1500 500 / 1500 Other: Weight 97.976 kg 97.7 kg Weight Measurement Method [facility] Diagnostic Findings EKG 09/27/2024 NSR 81bpm possible LAE Nonspecific ST and T wave abnormality QTc 501 EKG 09/26/2024 NSR 78bpm CXR 09/26/2024 Mild CHF suspected. Basilar pneumonia not excluded in the appropriate clinical context. Echocardiogram 09/06/24 LVEF 60-65% moderate concentric LVH focal area of akinesis involving the apical inferior wall otherwise normal wall motion moderately calcified AV mild valvular mild MR mild TR grade II Dastolic dysfunction.
--- NOTE | 2024-09-27 10:04 | Electrocardiogram Report ---
Test Reason : Blood Pressure : */* mmHG Vent. Rate : 81 BPM Atrial Rate : 81 BPM P-R Int : 168 ms QRS Dur : 92 ms QT Int : 432 ms P-R-T Axes : 58 48 159 degrees QTcB Int : 501 ms Poor data quality, interpretation may be adversely affected Normal sinus rhythm Possible Left atrial enlargement Nonspecific ST and T wave abnormality Prolonged QT Abnormal ECG When compared with ECG of 26-Sep-2024 12:19, Nonspecific T wave abnormality, worse in Inferior leads Nonspecific T wave abnormality now evident in Lateral leads Confirmed by Gunner Stephens ([id number]) on 09/27/2024 10:04:33 AM Referred By: REFERRED SELF Confirmed By: Gunner Stephens
[2024-09-27] MEDS: INSULIN ASPART PER UNIT CHARGE SC SCH (12:05)
[2024-09-27] MEDS: INSULIN HUMAN REGULAR PER UNIT 8 UNITS in SYRINGE 7.92 ML IV ONE (12:46)
--- NOTE | 2024-09-27 12:49 | Hospitalist Progress Note ---
Date of Service September 27, 2024 Assessment & Plan (1) Acute hypoxic respiratory failure: (2) Acute on chronic diastolic heart failure: Plan: Graciela Mobley is a 74y/o F with PMHx significant for insulin-dependent DM type II, diabetic polyneuropathy, PAD, COPD, asthma, chronic A-fib anticoagulated on warfarin, chronic diastolic HF, CAD, history of DVT, vitamin B12 deficiency, GERD without esophagitis, senile osteoporosis, cervical spinal stenosis, prior tobacco use and depression who presented to the ED via EMS with complaint of SOB. Patient been doing well at home following discharge on 09/11/24 up until last evening when she started to develop SOB - notably worse with exertion. Was found to be saturating in the low 80s SpO2 on RA by EMS. Had to initially be placed on 10L nonrebreather en route to ED. Now de-escalated to 4L NC at time of evaluation and saturating in the mid 90s SpO2. Patient recently admitted under our service from 09/05/24 to 09/11/24. She was managed for the following: acute COPD exacerbation with sepsis 2/2 superimposed bronchitis ISO RSV infection, DKA and acute on chronic diastolic HF. Successfully weaned off of supplemental O2 prior to discharge. PT/OT had recommended rehab on discharge however patient preferred to be discharged home with services. Acute respiratory failure with hypoxia likely multifactorial: CHF in setting of COPD/asthma Acute on chronic diastolic heart failure Chronic troponin elevation-improved when compared to prior --CXR:Mild CHF suspected. Basilar pneumonia not excluded in the appropriate clinical context. --Venous Doppler: No evidence for DVT of the bilateral lower extremity -- Normal procalcitonin --Last ECHO:09/06/24: LVEF of 60 to 65%, moderate concentric LVH, focal area of akinesis involving the apical inferior wall otherwise normal wall motion, moderately calcified AV, mild valvular , mild MR, mild TR and grade II DD. -- Continue IV Lasix 40mg twice a day --Titrate down oxygen as able Monitor volume status, renal function, electrolytes Appreciate cardiology input Monitor I's and O's, daily weight Fluid restriction May need 2 step prior to discharge Continue Imdur, metoprolol (3) Elevated troponin: Plan: Likely demand ischemia secondary to above (4) Supratherapeutic INR: Plan: No bleeding issues Monitor INR: 3.1 today (5) Chronic atrial fibrillation: Plan: Continue metoprolol Resume Coumadin as able (6) COPD (chronic obstructive pulmonary disease): Plan: Nebs as needed Monitor (7) Depression: Plan: Continue Zoloft. (8) Diabetic polyneuropathy: (9) Insulin dependent type 2 diabetes mellitus: Plan: Uncontrolled Hgb A1c 12.2% Hold p.o. medications Has insulin pump at home Continue insulin per protocol Glycemic pharmacy to assist with management. Monitor blood glucose levels (10) HTN (hypertension): Plan: BP relatively low Monitor (11) Hyperlipidemia: Plan: On statin (12) Coronary artery disease: Plan: Continue ASA, rosuvastatin, metoprolol (13) GERD (gastroesophageal reflux disease): Plan: Continue Pepcid. DVT Px: INR therapeutic Resume Coumadin as able CODE STATUS Full code Disposition PT OT prior to discharge Admission and Anticipated Discharge Date Admission Date: September 26, 2024 Subjective Patient is seen and examined at bedside Less dyspnea today Saturating well on 3 L supplemental oxygen Denies any chest pain, nausea, vomiting, abdominal pain, dizziness Review of Systems Review of Systems: All systems reviewed & are unremarkable except as noted in Subjective Physical Exam Physical Exam: Physical Exam: Vitals signs as noted above General Appearance:Obese, no apparent distress Head: normocephalic, Atraumatic Eyes: normal inspection, EOMI Neck: supple, Trachea midline Respiratory/Chest: Normal breath sounds, basal crackles, No accessory muscle use Cardiovascular: S1, S2, + murmur Abdomen/GI:Soft, Non tender, Bowel sounds present Extremities/Musculoskeletal:normal inspection, Trace edema Neurologic/Psych:AAOX3, grossly no focal neurological deficits Skin: normal color, warm Results & Data Results & Data Vital Signs (Past 12 Hours) Vital Signs Temp Pulse Pulse Resp BP Pulse Ox O2 Del Method 09/27/24 07:33 76 09/27/24 07:25 37.0 C 76 19 128/88 96 Nasal Cannula 09/27/24 03:19 36.4 C L 81 18 127/74 94 Nasal Cannula O2 Flow Rate 09/27/24 07:33 09/27/24 07:25 3.0 09/27/24 03:19 3.0 Laboratory Results Short CBC 09/26/24 09/27/24 Range/Units 12:25 06:17 WBC 9.35 5.27 (4.8-10.8) K/ul Hgb 10.7 L 10.4 L (12.0-16.0) g/dl Hct 33.7 L 32.5 L (37.0-47.0) % Plt Count 193 157 (130-400) K/uL BMP 09/26/24 09/27/24 12:25 06:17 Sodium 140 135 L Potassium 4.4 5.0 Chloride 105 99 Carbon Dioxide 31 29 BUN 11 26 H Creatinine 0.70 1.03 D Glucose 94 402 H* Calcium 9.0 8.8 Liver Function 09/26/24 Range/Units 12:25 Total Bilirubin 0.5 (0.2-1.0) mg/dl AST 30 (13-39) U/L ALT 20 (7-52) U/L Alkaline Phosphatase 115 H (34-104) U/L Albumin 3.6 (3.4-5.0) gm/dl Urine 09/26/24 Range/Units Unknown Urine Color Yellow Urine Appearance Clear (Clear) Urine pH 6.0 (4.5-7.5) Ur Specific [place] 1.009 (1.000-1.030) Urine Protein Negative (Negative) Urine Glucose (UA) Negative (Negative) (6) COPD (chronic obstructive pulmonary disease) COPD type: unspecified COPD Qualified Code(s): J44.9 - Chronic obstructive pulmonary disease, unspecified (7) Depression Depression Type: unspecified Qualified Code(s): F32.A - Depression, unspecified (8) Diabetic polyneuropathy Diabetes mellitus type: type 2 Qualified Code(s): E11.42 - Type 2 diabetes mellitus with diabetic polyneuropathy (10) HTN (hypertension) Hypertension type: unspecified Qualified Code(s): I10 - Essential (primary) hypertension (11) Hyperlipidemia Hyperlipidemia type: unspecified Qualified Code(s): E78.5 - Hyperlipidemia, unspecified (12) Coronary artery disease Coronary Disease-Associated Artery/Lesion type: unspecified vessel or lesion type [place] vs. transplanted heart: [place] heart Associated angina: unspecified whether angina present Qualified Code(s): I25.10 - Atherosclerotic heart disease of [place] coronary artery without angina pectoris (13) GERD (gastroesophageal reflux disease) Esophagitis presence: esophagitis presence not specified Qualified Code(s): K21.9 - Gastro-esophageal reflux disease without esophagitis
[2024-09-27] MEDS: LANTUS PER UNIT CHARGE SQ SCH (20:36)
[2024-09-28] MEDS: INSULIN ASPART PER UNIT CHARGE SC SCH ×3 (00:43→16:02)
[2024-09-28] MEDS: METOPROLOL TARTRATE 25 MG TAB PO STA (01:38)
--- NOTE | 2024-09-28 02:49 | Communication Note ---
Date of Service: September 28, 2024 Patient with recurrent episodes of torsades overnight. 2 episodes of CODE BLUE due to patient decreased responsiveness during episode. Subsequent CPR with ROSC. Transfer to ICU as per vice president quality assurance (Dr. Flowers) recommendations. Consideration for isoproterenol infusion. Patient updated of events over the phone.
--- NOTE | 2024-09-28 03:11 | Communication Note ---
Date of Service: September 28, 2024 Responded to CODE BLUE event. Prior to my arrival the patient converted from sinus to polymorphic ventricular tachycardia. She was unresponsive, thus chest compressions performed. Approximately 20 compressions per staff. Patient spontaneously converted without medications. On my arrival she is awake and alert, oriented x3. Complaining of mild chest discomfort at the sternum. She is in sinus rhythm with HR 58-60. SBP 155. Saturating well on 2L NC without distress. I did order 2g MgSO4 prophylactically to be given as labs are pending. Further history elicited from nursing staff at bedside. Patient is being diuresed due to heart failure exacerbation. She had an episode of non-sustained ventricular tachycardia approximately 1.5 hours ago for which she received 12.5mg PO metoprolol tartrate. Last labs yesterday AM show K 5.0, Mg 2.0. UOP 0.85ml/kg/hr, last documented prior to midnight. Patient is hemodynamically stable on multiple checks. She may remain on PCU with close monitoring pending further work-up. Renal panel, Mg, troponin pending. QTc on prior EKG 501. Recheck pending. Cardiology is on board with patient's case. Primary team to touch base with production support consultant. Primary ACS was ruled out. Coding Level of Care Code New Pt None Patient Type New Medical Decision Making Moderate Complexity
[2024-09-28 03:19] LABS: Basophils # (auto) 0.02 K/uL (0.00-0.20); Basophils % (auto) 0.3 %; Eosinophils # (auto) 0.04 K/uL (0.00-0.50); Eosinophils % (auto) 0.5 %; Hematocrit (blood only) 31.2 % (37.0-47.0); Immature Granulocytes # (auto) 0.03 K/uL (0.01-0.20); Immature Granulocytes % (auto) 0.4 %; Lymphocytes # (auto) 2.57 K/uL (1.20-3.40); Lymphocytes % (auto) 32.4 %; Mean Corpuscular Hemoglobin 29.1 pg (25.0-34.0); Mean Corpuscular Hgb Conc 32.1 g/dL (32.0-36.0); Mean Corpuscular Volume 90.7 fL (80.0-100.0); Mean Platelet Volume 11.5 fL (9.4-12.4); Monocytes # (auto) 0.56 K/uL (0.11-0.59); Monocytes % (auto) 7.1 %; Neutrophils % (auto) 59.3 %; Platelet Count 159 K/uL (130-400); RDW Coefficient of Variation 15.8 % (11.5-14.5); RDW Standard Deviation 51.8 fL (36.4-46.3); Red Blood Count 3.44 M/uL (4.20-5.40); White Blood Count 7.92 K/ul (4.8-10.8)
[2024-09-28 03:35] LABS: BUN Creatinine Ratio 34.2 (10-20); Calcium 8.9 mg/dl (8.6-10.3); Creatinine Clr Calc Pharmacy 50.7 ml/min; Potassium 4.2 mmol/L (3.5-5.1)
[2024-09-28 03:42] LABS: Troponin I High Sensitivity 24.6 pg/ml (0-14)
[2024-09-28 03:43] LABS: INR 2.7 (0.9-1.1); Prothrombin Time 26.7 Seconds (9.0-12.0)
[2024-09-28] MEDS: MAGNESIUM SULFATE / D5W 1 GM/100 ML BAG IV SCH (04:10)
[2024-09-28 04:24] LABS: Magnesium 2.1 mg/dl (1.7-2.4)
[2024-09-28 05:44] LABS: iSTAT Arterial Blood Gas HCO3 38 meg/L (19-24); iSTAT Arterial Blood Gas pCO2 59 mmHg (35-46); iSTAT Arterial Blood Gas pH 7.42 (7.35-7.45); iSTAT Arterial Blood Gas pO2 94 mmHg (80-95); iSTAT Carbon Dioxide 40 mmol/L (24-31); iSTAT Hematocrit 30 % (37-47); iSTAT Hemoglobin 10.2 g/dl (12.0-16.0); iSTAT Potassium 4.1 mmol/L (3.3-5.0); iSTAT Sodium 141 mmol/L (135-144)
[2024-09-28] MEDS ORDERED: STAT IV Infusion **Titration per Protocol STA ×2 (05:55→11:44)
[2024-09-28 06:20] LABS: Phosphorus 2.7 mg/dl (2.5-4.9)
--- NOTE | 2024-09-28 06:20 | Critical Care Consultation ---
Date of Consultation September 28, 2024 Assessment & Plan (1) Acute on chronic diastolic heart failure: (2) Acute hypoxic respiratory failure: (3) Torsades de pointes: Plan Reason Critically Ill: 1. Torsades de pointes, recurrent 2. Acute exacerbation of heart failure 3. SOL on CKD with diuresis 4. NSTEMI type II 5. Uncontrolled DM Neuro - RASS GOAL 0 Routine neurologic checks per protocol Holding trazodone given QT prolongation Sleep hygiene Cardiac - Cardiology on board, appreciate recommendations Start isoproterenol for target HR 80-[address] Flowers Update TTE Bedside POCUS appears similar to 3 weeks ago. WMA is same. LV is mildly dilated. MAP goal > 65mmHg Hold any AVNB agents Continue ASA Hold furosemide until reassessed by Cardiology Respiratory - CXR pending SpO2 goal 92% IS/Flutter Pulmonary hygiene GI - Diet: NPO except meds until reassessed SUP: H2B Bowel regimen: Miralax RENAL/LYTES - Cr bump likely 2/2 diuresis Replete electrolytes as indicated Cisneros for accurate I/Os Maintain net even to net negative ENDO - BG 140-180 per SCC guidelines ISS if needed while inpatient HEME - Continue warfarin INR at target today ID - No acute concerns LINES/TUBES/DRAINS - Cisneros (Day #1) PIV x2 DVT PROPHYLAXIS - Warfarin I have personally spent 48 minutes of critical care time in the direct management of this patient. This is a life/limb threatening event. This includes time spent evaluating patient, direct bedside care, chart review, placing orders, interpretation of diagnostic studies, discussion with consultants, patient, and family members, as well as other required patient management activities. This time is exclusive of all separately billable procedures, and teaching time and separate from and in addition to any other critical care service time. Thank you for allowing us to participate in the care of this patient. Please refer to my attending physician's documentation for any further recommendations. Supervising Physician Co-Signing Physician Notes I have personally evaluated and examined this patient. I agree with assessment and plan of Rogerio Gomez PA-C Patient requiring low-dose isoproterenol to maintain adequate heart rate. Mild increase in patient's weight, electrolytes initially within acceptable ranges, prolonged QTc on EKG. holding beta-adis and additional diuretics until evaluation by cardiology. Optimizing blood sugar ranges. Creatinine upper range normal especially from her baseline continue current care History of Present Illness Reason for Consultation: Torsades de pointes Requesting Physician: Robert Attending Physician: Daryl Thomas MD History of Present Illness Ms. 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 She was diagnosed with HF exacerbation. She has been diuresing well since admission. I responded to CODE BLUE event in the early hours of the morning. Please see separate dictation for details. Patient had recurrent torsades de pointes despite 2g MgSO4. She again spontaneously converted to sinus bradycardia with HR 50s. EKG with sinus rhythm with PSVCs. Remains on 2-3L NC. Complaining of some sternal pain where she had chest compressions performed. Endorses mild shortness of breath, unchanged from prior. Denies other current complaints. I spoke with Dr. Flowers ([facility]) who recommended discontinuing AV blocking agents, starting isoproterenol for target HR 80-90bpm, and updating echocardiogram. I did give additional 2g MgSO4. Level 2.1. K 4.1 - giving 20mEq. Allergies Allergy/AdvReac Type Severity Reaction Status Date / Time alendronate sodium Allergy Severe DIFFICULTY Verified 09/21/22 22:31 BREATHING/BURNING SENSATION esomeprazole Allergy Intermediate Hives Verified 09/21/22 22:31 Home Medications Medication Instructions Recorded Confirmed Type albuterol sulfate 90 mcg/actuation 2 puff inhalation QID PRN 01/12/20 09/26/24 History aerosol inhaler (Ventolin HFA) Shortness Of Breath Or Wheezing fluticasone propionate 50 2 spray intranasal QAM 01/12/20 09/26/24 History mcg/actuation nasal spray,suspension (Flonase Allergy Relief) metformin 1,000 mg tablet 1,000 mg PO BIDM 01/12/20 09/26/24 History nitroglycerin 0.3 mg sublingual 0.3 mg sublingual .PRN/UD PRN 01/12/20 09/26/24 History tablet (Nitrostat) Chest Pain pregabalin 150 mg capsule 150 mg PO BID 01/12/20 09/26/24 History sertraline 50 mg tablet 75 mg PO HS 01/12/20 09/26/24 History trazodone 50 mg tablet 50 mg PO HS 01/12/20 09/26/24 History warfarin 5 mg tablet See Rx Instructions .Route .COMPLEX 01/12/20 09/26/24 History cholecalciferol (vitamin D3) 25 1,000 unit PO QAM #30 caps 01/19/20 09/26/24 Rx mcg (1,000 unit) capsule multivitamin (Daily-Moiz tablet) 1 tab PO QAM #30 tabs 01/19/20 09/26/24 Rx metoprolol succinate 50 mg 50 mg PO BID #60 tabs 01/23/20 09/26/24 Rx tablet,extended release 24 hr cyanocobalamin (vitamin B-12) 1,000 mcg sublingual DAILY 09/21/22 09/26/24 History 1,000 mcg sublingual tablet aspirin 81 mg tablet,delayed 81 mg PO QAM 11/15/23 09/26/24 History release insulin aspart U-100 100 unit/mL See Rx Instructions .Route .COMPLEX 11/15/23 09/26/24 History subcutaneous solution (Novolog U-100 Insulin aspart) isosorbide mononitrate 60 mg 60 mg PO QAM 11/15/23 09/26/24 History tablet,extended release 24 hr rosuvastatin 20 mg tablet 20 mg PO QAM 11/15/23 09/26/24 History furosemide 20 mg tablet 20 mg PO 3XWK #30 tabs 11/17/23 09/26/24 Rx potassium chloride 20 mEq 20 meq PO 3XWK #30 tabs 11/17/23 09/26/24 Rx tablet,extended release famotidine 40 mg tablet 40 mg PO DAILY 09/05/24 09/26/24 History Patient History Medical History Benign neoplasm of colon Osteoarthritis History of DVT (deep vein thrombosis) "RLE x 2 in 1980s" 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) "Abnormal left breast mammogram 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 Estrogen receptor positive and progesterone receptor positive Status post lumpectomy with sentinel lymph node biopsy stage [id number] 04/07/2015 Status post completion of radiation therapy 07/21/2015 received 6640 cGy" On 07/25/15 17:54 Jayleen Bates wrote "Abnormal left breast mammogram 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 Estrogen receptor positive and progesterone receptor positive Status post lumpectomy with sentinel lymph node biopsy stage [id number] 04/07/2015 Status post completion of radiation therapy 07/21/2015 received 6640 cGy" On 07/25/15 17:49 Jayleen Bates wrote "Abnormal left breast mammogram 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 Estrogen receptor positive and progesterone receptor positive Status post lumpectomy with sentinel lymph node biopsy stage [id number] 04/07/2015" Surgical History H/O partial mastectomy "left breast 04/2015 with lymph node biopsy" H/O arthroscopic knee surgery H/O colonoscopy History of carpal tunnel surgery S/P cervical spinal fusion S/P dilation and curettage H/O vein stripping Family History Other Breast cancer Diabetes Heart disease Social History Smoking Status: Former smoker Tobacco Type: Cigarettes Second Hand Exposure: No; Do You Dip or Chew Tobacco: No; Hx Alcohol Use: No Hx Substance Use: No Preferred Language: Estonian Communication Ability: Effective Workers Compensation Claims Analyst Required: No Beliefs That Will Affect Care: None Current Living Situation: Family Current Living Situation Comment: lives at home with and step-son Feels Safe at Home: Yes Safety Concerns: Feels Safe At This Time Assistive Devices: Walker Review of Systems Review of Systems: All systems reviewed & are unremarkable except as noted in Subjective Physical Exam Constitutional: + obese; no acute distress Eyes: PERRL, conjunctivae normal, anicteric sclerae ENMT: external ear and nose normal, oropharynx normal Neck: trachea midline, no thyromegaly short neck Respiratory: no labored breathing Auscultation: + diminished lung sounds and + crackles; no rhonchi and no wheezes shallow breaths Cardiovascular: Rate/Rhythm: + bradycardic Heart Sounds: + murmur Vessels: no JVD Extremities: normal capillary refill; no edema Gastrointestinal (Abdomen): Protuberant. Pickwickian. Nontender. Active bowel sounds. Skin: no rashes, warm and dry Neurologic: PERRL, EOMI, accommodation nl, no face palsy, no dysarthria Psychiatric: A+Ox3, euthymic affect Results & Data Results & Data Vital Signs (Past 12 Hours) Vital Signs Temp Pulse Pulse Resp BP Pulse Ox O2 Del Method 09/28/24 04:40 36.5 C 54 L 16 107/57 L 96 Nasal Cannula 09/28/24 03:14 36.5 C 60 22 145/74 H 98 Nasal Cannula 09/28/24 00:48 67 09/27/24 22:26 36.5 C 73 20 123/70 96 Nasal Cannula 09/27/24 21:00 Nasal Cannula 09/27/24 19:59 36.7 C 65 20 121/73 96 Nasal Cannula O2 Flow Rate 09/28/24 04:40 3.0 09/28/24 03:14 3.0 09/28/24 00:48 09/27/24 22:26 2.0 09/27/24 21:00 3 09/27/24 19:59 2.0 Laboratory Results Reviewed Diagnostic Findings Reviewed Medications Administered See [facility] Procedure Codes (Charges) Resuscitation Resuscitation: 70293 Heart/lung resuscitation CPR Coding Level of Care Code 34031 CRITICAL CARE 1ST 30-74M Diagnoses Acute on chronic diastolic heart failure I50.33 Acute hypoxic respiratory failure J96.01 Torsades de pointes I47.21 CPT Codes Resuscitation - Resuscitation: 66431 Heart/lung resuscitation CPR ([id number]) Time Spent (min) 48
[2024-09-28] MEDS: POTASSIUM CHLORIDE CRTAB 20 MEQ TABCR PO STA (06:32)
[2024-09-28] MEDS: MAGNESIUM SULFATE / D5W 1 GM/100 ML BAG IV ONE (06:32)
[2024-09-28] MEDS: ICU ELECTROLYTE REPLACEMENT PROTOCOL SCH (07:04)
[2024-09-28] MEDS ORDERED: INSULIN ASPART PER UNIT CHARGE SC SCH (07:30)
[2024-09-28] MEDS ORDERED: ICU Protocol for HYPERglycemia SCH (07:30)
--- NOTE | 2024-09-28 08:00 | XRay Report ---
EXAM: XR chest 1V portable CLINICAL HISTORY: Hypoxia TECHNIQUE: An X-ray image of the chest is obtained in AP projection. COMPARISON: CR 09/26/2024. FINDINGS: Pulmonary Parenchyma: Mildly progressed diffuse bilateral interstitial thickening, reticulations, and nodularity. may represent interstitial edema, however, early infection couldn't excluded. No evidence of consolidation, collapse, or focal opacities. No pulmonary nodules are identified. Blunted both costophrenic angles noted. Heart and Mediastinum: Enlarged cardiac size with bilateral hilar vascular congestion noted. left side retrocardiac tubular shadow is still seen. indeterminate nature. No mediastinal widening or masses. No hilar or mediastinal lymphadenopathy. A Wide superior mediastinum is newly seen. Bony Thorax: The bony thorax appears intact without fractures or deformities. Soft Tissues: Soft tissues overlying the chest wall are unremarkable. IMPRESSION: 1. Mildly progressed diffuse bilateral interstitial thickening, reticulations, and nodularity. may represent interstitial edema, however, early infection couldn't excluded. 2. Cardiomegaly was unchanged. 3. Blunted both costophrenic angles noted. 4. A Wide superior mediastinum is newly seen. Electronically signed by Jey Recinos 09-28-2024 08:00 AM
[2024-09-28] MEDS: ACETAMINOPHEN 325 MG TAB PO PRN (08:13)
[2024-09-28] MEDS: LANTUS PER UNIT CHARGE SQ ONE (10:20)
--- NOTE | 2024-09-28 10:32 | Electrocardiogram Report ---
Test Reason : Blood Pressure : */* mmHG Vent. Rate : 56 BPM Atrial Rate : 56 BPM P-R Int : 148 ms QRS Dur : 92 ms QT Int : 508 ms P-R-T Axes : 59 42 11 degrees QTcB Int : 490 ms Sinus bradycardia with Premature supraventricular complexes Nonspecific ST and T wave abnormality QTcB >= 480 msec Abnormal ECG When compared with ECG of 27-Sep-2024 04:37, Premature supraventricular complexes are now Present ST no longer depressed in Inferior leads Non-specific change in ST segment in Lateral leads T wave inversion now evident in Lateral leads Confirmed by Gunner Stephens ([id number]) on 09/28/2024 10:32:12 AM Referred By: REFERRED SELF Confirmed By: Gunner Stephens
--- NOTE | 2024-09-28 11:38 | Cardiology Progress Note ---
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 -Repeat troponin normal. Repeat EKG without acute changes. Patient chest pain free. -Electrolytes WNL. Given IV Magnesium 2g. Recommend K >4 and magnesium >2 -Patient taking 3 QTc prolonging medications: sertraline, trazodone and lyrica. -Will discontinue and avoid QTc prolonging medications. -Isoproterenol started. Continue at 1mcg/min. Goal HR 70-80s. No further sustained arrhythmia. Continue to monitor telemetry. -Will hold off on IV diuresis for now Case discussed with Dr Flowers. I spent a total of 39 minutes on the date of service in preparation, delivery, and documentation of the care provided to this patient, excluding any time spent in the performance of separately billed services. Patito Galan PA-C Department of Cardiology, [facility] This chart was completed in part utilizing Speech Voice Recognition Software. Grammatical errors, random word insertions, pronoun errors, and incomplete sentences are an occasional consequence of this system due to software limitations, ambient noise, and hardware issues. Any formal questions or concerns about the content, text, or information contained within the body of this dictation should be directly addressed to the provider for clarification. Admission and Anticipated Discharge Date Admission Date: September 26, 2024 Supervising Physician Co-Signing Physician Notes I spent a total of 50minutes on the date of service in preparation, delivery, and documentation of the care provided to this patient, excluding any time spent in the performance of separately billed services. I have personally performed a history and physical examination on the patient. I have reviewed the advance practitioner's documentation, and I agree with, and take responsibility for the plan of care. Overnight rated to be ICU as she was having runs of torsades. She had QT prolongation on her ECG. She was being diuresed for decompensated heart failure however her electrolytes were within normal range and does not explain her episodes of torsades. She is on multiple QT prolonging medications which have been held. She states that she takes trazodone and sertraline. She denies having any chest pain and states her shortness of breath has significantly improved with IV diuresis. She is resting comfortably in the ICU. Given her recurrent torsades patient was started on isoproterenol infusion to avoid bradycardia as her torsades was driven by prolonged QT and her bradycardia. Her troponins remained flat and ECG showed no acute ischemic changes. Her echocardiogram shows preserved left ventricular ejection fraction and no overt wall motion abnormalities. Will hold off on any Lasix today and continue to monitor patient in the ICU. Hopefully tomorrow we can wean patient off of the isoproterenol infusion thankfully patient has ultimately needed a small low-dose of isoproterenol and enough to keep her heart rate in the 70s to 80s. If patient has recurrent torsades refractory to isoproterenol we will need to consider overdrive pacing with temporary pacemaker. Recommend repeat ECG later this evening and tomorrow morning. Hold AV ameena blocking agents to avoid bradycardia. Subjective Patient resting comfortably in bed with at bedside for consultation. Feeling tired, otherwise no complaints. Remains on 3L 02 via NC Denies chest pain, shortness of breath, palpitations. Overnight patient bradycardic with brief torsades. Per nursing staff undetermined loss of pulse. Patient unresponsive. Completed compressions for several seconds with patient arousal. Review of Systems Review of Systems: All systems reviewed & are unremarkable except as noted in HPI & below Constitutional: + fatigue Physical Exam Constitutional: WD/WN, vitals as above comfortable and + lethargic Eyes: PERRL, conjunctivae normal, anicteric sclerae Neck: normal visual inspection Respiratory: normal respiratory effort, lungs clear to auscultation Cardiovascular: Rate/Rhythm: regular rate and regular rhythm Heart Sounds: normal S1, normal S2 and + murmur Vessels: no JVD Extremities: normal capillary refill; no edema Gastrointestinal (Abdomen): Inspection/Auscultation: abdomen normal to inspection Percussion/Palpation: abdomen soft; abdomen nontender Skin: no rashes, warm and dry Neurologic: PERRL, EOMI, accommodation nl, no face palsy, no dysarthria Psychiatric: A+Ox3, euthymic affect Results & Data Vital Signs (Past 12 Hours) Vital Signs Temp Pulse Pulse Resp BP BP BP 09/28/24 11:00 36.3 C L 69 14 09/28/24 11:00 103/52 L 09/28/24 10:30 128/64 09/28/24 10:30 128/64 09/28/24 10:21 36.3 C L 74 17 09/28/24 10:00 94/45 L 09/28/24 10:00 36.2 C L 68 17 09/28/24 09:06 36.1 C L 72 19 09/28/24 09:00 91/48 L 09/28/24 08:06 35.8 C L 74 22 09/28/24 08:00 130/78 09/28/24 08:00 09/28/24 07:32 09/28/24 07:03 35.9 C L 71 15 09/28/24 07:00 118/61 09/28/24 07:00 118/61 09/28/24 06:39 36.4 C L 72 15 09/28/24 06:24 62 23 09/28/24 05:55 09/28/24 05:55 60 09/28/24 05:06 52 L 19 09/28/24 04:40 36.5 C 54 L 16 107/57 L 09/28/24 04:24 56 L 16 09/28/24 03:21 60 25 H 09/28/24 03:14 36.5 C 60 22 145/74 H 09/28/24 03:13 145/74 H 09/28/24 03:13 145/74 H 09/28/24 02:33 54 L 0 L 09/28/24 02:15 67 0 L 09/28/24 01:00 72 0 L 09/28/24 00:48 67 09/28/24 00:00 63 0 L Pulse Ox Pulse Ox O2 Del Method O2 Del Method O2 Flow Rate O2 Flow Rate 09/28/24 11:00 96 09/28/24 11:00 09/28/24 10:30 09/28/24 10:30 09/28/24 10:21 94 09/28/24 10:00 09/28/24 10:00 92 09/28/24 09:06 92 09/28/24 09:00 09/28/24 08:06 94 09/28/24 08:00 09/28/24 08:00 Nasal Cannula 3 09/28/24 07:32 Nasal Cannula 3 09/28/24 07:03 95 09/28/24 07:00 09/28/24 07:00 09/28/24 06:39 96 09/28/24 06:24 98 09/28/24 05:55 95 Nasal Cannula 3 09/28/24 05:55 09/28/24 05:06 94 09/28/24 04:40 96 Nasal Cannula 3.0 09/28/24 04:24 99 09/28/24 03:21 98 09/28/24 03:14 98 Nasal Cannula 3.0 09/28/24 03:13 09/28/24 03:13 09/28/24 02:33 09/28/24 02:15 09/28/24 01:00 09/28/24 00:48 09/28/24 00:00
[2024-09-28] MEDS ORDERED: INSULIN PROTOCOL GOAL RANGE ONE (11:44)
[2024-09-28] MEDS: INSULIN REGULAR 250 UNITS in SODIUM CHLORIDE 0.9% 247.5 ML IV SCH (12:17)
[2024-09-28] MEDS: NovoLIN-R BOLUS FROM BAG IV ONE (12:18)
--- NOTE | 2024-09-28 14:35 | Hospitalist Progress Note ---
Date of Service September 28, 2024 Assessment & Plan (1) Acute hypoxic respiratory failure: (2) Acute on chronic diastolic heart failure: Plan: Graciela Mobley is a 74y/o F with PMHx significant for insulin-dependent DM type II, diabetic polyneuropathy, PAD, COPD, asthma, chronic A-fib anticoagulated on warfarin, chronic diastolic HF, CAD, history of DVT, vitamin B12 deficiency, GERD without esophagitis, senile osteoporosis, cervical spinal stenosis, prior tobacco use and depression who presented to the ED via EMS with complaint of SOB. Patient been doing well at home following discharge on 09/11/24 up until last evening when she started to develop SOB - notably worse with exertion. Was found to be saturating in the low 80s SpO2 on RA by EMS. Had to initially be placed on 10L nonrebreather en route to ED. Now de-escalated to 4L NC at time of evaluation and saturating in the mid 90s SpO2. Patient recently admitted under our service from 09/05/24 to 09/11/24. She was managed for the following: acute COPD exacerbation with sepsis 2/2 superimposed bronchitis ISO RSV infection, DKA and acute on chronic diastolic HF. Successfully weaned off of supplemental O2 prior to discharge. PT/OT had recommended rehab on discharge however patient preferred to be discharged home with services. Acute respiratory failure with hypoxia likely multifactorial: CHF in setting of COPD/asthma Acute on chronic diastolic heart failure Chronic troponin elevation-improved when compared to prior --CXR:Mild CHF suspected. Basilar pneumonia not excluded in the appropriate clinical context. --Venous Doppler: No evidence for DVT of the bilateral lower extremity -- Normal procalcitonin --Last ECHO:09/06/24: LVEF of 60 to 65%, moderate concentric LVH, focal area of akinesis involving the apical inferior wall otherwise normal wall motion, moderately calcified AV, mild valvular , mild MR, mild TR and grade II DD. -Titrate down oxygen as able Monitor volume status, renal function, electrolytes Appreciate cardiology input Monitor I's and O's, daily weight Fluid restriction May need 2 step prior to discharge Continue Imdur IV diuresis, metoprolol held for now Torsades de pointes Prolonged QT Permanent atrial fibrillation Patient had 2 episodes of bradycardia with torsades overnight requiring brief chest compressions. CODE BLUE on 09/28/2024 --ECHO: EF 60 to 65%. Right ventricular cavity size is normal. Right ventricular systolic function is normal. Mild valvular aortic stenosis. Mild mitral and tricuspid regurgitation. Estimated systolic pulmonary pressure 44 mmHg. Mild pulmonary hypertension. --QT prolonging medications sertraline, trazodone discontinued Monitor and replete electrolytes as needed Continue isoproterenol ggt Appreciate cardiology, critical care input (3) Elevated troponin: Plan: Likely demand ischemia secondary to above (4) Supratherapeutic INR: Plan: No bleeding issues Resolved Monitor INR: 2.7 today (5) Chronic atrial fibrillation: Plan: Continue metoprolol Resume Coumadin as able (6) COPD (chronic obstructive pulmonary disease): Plan: Nebs as needed Monitor (7) Depression: Plan: Zoloft discontinued due to torsades/QT prolongation (8) Diabetic polyneuropathy: (9) Insulin dependent type 2 diabetes mellitus: Plan: Uncontrolled Hgb A1c 12.2% Hold p.o. medications Has insulin pump at home Continue insulin per protocol Glycemic pharmacy to assist with management. Monitor blood glucose levels (10) HTN (hypertension): Plan: BP relatively low Monitor (11) Hyperlipidemia: Plan: On statin (12) Coronary artery disease: Plan: Continue ASA, rosuvastatin, metoprolol (13) GERD (gastroesophageal reflux disease): Plan: Continue Pepcid. DVT Px: INR therapeutic Resume Coumadin as able CODE STATUS Full code Disposition PT OT prior to discharge Admission and Anticipated Discharge Date Admission Date: September 26, 2024 Subjective Patient is seen and examined at bedside States feeling tired today Also reports chest discomfort from CPR overnight Discussed with patient's family at bedside Admits to have some dyspnea but otherwise no complaints today Patient had 2 episodes of bradycardia with torsades overnight requiring brief chest compressions. Review of Systems Review of Systems: All systems reviewed & are unremarkable except as noted in Subjective Physical Exam Physical Exam: Physical Exam: Vitals signs as noted above General Appearance:Obese, no apparent distress Head: normocephalic, Atraumatic Eyes: normal inspection, EOMI Neck: supple, Trachea midline Respiratory/Chest: Normal breath sounds, basal crackles, No accessory muscle use Cardiovascular: S1, S2, + murmur Abdomen/GI:Soft, Non tender, Bowel sounds present Extremities/Musculoskeletal:normal inspection, Trace edema Neurologic/Psych:AAOX3, grossly no focal neurological deficits Skin: normal color, warm Results & Data Results & Data Vital Signs (Past 12 Hours) Vital Signs Temp Pulse Pulse Resp BP BP BP 09/28/24 12:08 111/61 09/28/24 11:39 36.1 C L 80 14 09/28/24 11:00 36.3 C L 69 14 09/28/24 11:00 103/52 L 09/28/24 10:30 128/64 09/28/24 10:30 128/64 09/28/24 10:21 36.3 C L 74 17 09/28/24 10:00 94/45 L 09/28/24 10:00 36.2 C L 68 17 09/28/24 09:06 36.1 C L 72 19 09/28/24 09:00 91/48 L 09/28/24 08:06 35.8 C L 74 22 09/28/24 08:00 130/78 09/28/24 08:00 09/28/24 07:32 09/28/24 07:03 35.9 C L 71 15 09/28/24 07:00 118/61 09/28/24 07:00 118/61 09/28/24 06:39 36.4 C L 72 15 09/28/24 06:24 62 23 09/28/24 05:55 09/28/24 05:55 60 09/28/24 05:06 52 L 19 09/28/24 04:40 36.5 C 54 L 16 107/57 L 09/28/24 04:24 56 L 16 09/28/24 03:21 60 25 H 09/28/24 03:14 36.5 C 60 22 145/74 H 09/28/24 03:13 145/74 H 09/28/24 03:13 145/74 H 09/28/24 02:33 54 L 0 L Pulse Ox Pulse Ox O2 Del Method O2 Del Method O2 Flow Rate O2 Flow Rate 09/28/24 12:08 09/28/24 11:39 93 09/28/24 11:00 96 09/28/24 11:00 09/28/24 10:30 09/28/24 10:30 09/28/24 10:21 94 09/28/24 10:00 09/28/24 10:00 92 09/28/24 09:06 92 09/28/24 09:00 09/28/24 08:06 94 09/28/24 08:00 09/28/24 08:00 Nasal Cannula 3 09/28/24 07:32 Nasal Cannula 3 09/28/24 07:03 95 09/28/24 07:00 09/28/24 07:00 09/28/24 06:39 96 09/28/24 06:24 98 09/28/24 05:55 95 Nasal Cannula 3 09/28/24 05:55 09/28/24 05:06 94 09/28/24 04:40 96 Nasal Cannula 3.0 09/28/24 04:24 99 09/28/24 03:21 98 09/28/24 03:14 98 Nasal Cannula 3.0 09/28/24 03:13 09/28/24 03:13 09/28/24 02:33 Laboratory Results Short CBC 09/28/24 Range/Units 03:04 WBC 7.92 (4.8-10.8) K/ul Hgb 10.0 L (12.0-16.0) g/dl Hct 31.2 L (37.0-47.0) % Plt Count 159 (130-400) K/uL BMP 09/28/24 03:01 Sodium 138 Potassium 4.2 Chloride 101 Carbon Dioxide 34 H BUN 38 H Creatinine 1.11 Glucose 249 H Calcium 8.9 (6) COPD (chronic obstructive pulmonary disease) COPD type: unspecified COPD Qualified Code(s): J44.9 - Chronic obstructive pulmonary disease, unspecified (7) Depression Depression Type: unspecified Qualified Code(s): F32.A - Depression, unspecified (8) Diabetic polyneuropathy Diabetes mellitus type: type 2 Qualified Code(s): E11.42 - Type 2 diabetes mellitus with diabetic polyneuropathy (10) HTN (hypertension) Hypertension type: unspecified Qualified Code(s): I10 - Essential (primary) hypertension (11) Hyperlipidemia Hyperlipidemia type: unspecified Qualified Code(s): E78.5 - Hyperlipidemia, unspecified (12) Coronary artery disease Coronary Disease-Associated Artery/Lesion type: unspecified vessel or lesion type [place] vs. transplanted heart: [place] heart Associated angina: unspecified whether angina present Qualified Code(s): I25.10 - Atherosclerotic heart disease of [place] coronary artery without angina pectoris (13) GERD (gastroesophageal reflux disease) Esophagitis presence: esophagitis presence not specified Qualified Code(s): K21.9 - Gastro-esophageal reflux disease without esophagitis
[2024-09-29] MEDS: INSULIN ASPART PER UNIT CHARGE SC SCH ×2 (00:42→16:22)
[2024-09-29 05:12] LABS: Hematocrit (blood only) 32.4 % (37.0-47.0); Hemoglobin 10.2 g/dl (12.0-16.0); Mean Corpuscular Hemoglobin 29.1 pg (25.0-34.0); Mean Corpuscular Hgb Conc 31.5 g/dL (32.0-36.0); Mean Corpuscular Volume 92.6 fL (80.0-100.0); Mean Platelet Volume 11.2 fL (9.4-12.4); Platelet Count 144 K/uL (130-400); RDW Coefficient of Variation 15.9 % (11.5-14.5); RDW Standard Deviation 54.4 fL (36.4-46.3); White Blood Count 5.87 K/ul (4.8-10.8)
[2024-09-29 05:24] LABS: BUN Creatinine Ratio 31.3 (10-20); Creatinine Clr Calc Pharmacy 58.6 ml/min; Magnesium 2.4 mg/dl (1.7-2.4); Phosphorus 3.8 mg/dl (2.5-4.9)
[2024-09-29 05:32] LABS: Prothrombin Time 20.6 Seconds (9.0-12.0)
--- NOTE | 2024-09-29 07:26 | Critical Care Progress Note ---
Date of Service September 29, 2024 Assessment & Plan (1) Acute on chronic diastolic heart failure: (2) Acute hypoxic respiratory failure: (3) Torsades de pointes: (4) Prolonged QT interval: (5) GERD (gastroesophageal reflux disease): (6) Hyperlipidemia: (7) Insulin dependent type 2 diabetes mellitus: (8) Chronic atrial fibrillation: (9) COPD (chronic obstructive pulmonary disease): (10) Cardiac arrest: Plan Reason Critically Ill: 1. Torsades de pointes, recurrent 2. Acute exacerbation of heart failure 3. SOL on CKD with diuresis 4. NSTEMI type II 5. Uncontrolled DM Neuro - CAM-ICU: Negative Routine neurologic checks per protocol Holding trazodone given QT prolongation Sleep hygiene Cardiac - -- Status post cardiac arrest with possible torsade de pointes Keep magnesium greater than 2, potassium greater than 4, phosphorus greater than 3 Cardiology on board, appreciate recommendations --Prolonged QTc EKG from today shows QTc of 489 DC trazodone Avoid QT prolonging medication Respiratory - -- COPD Greater than [id number] smoking history Not in exacerbation right now current not on inhalers at home. Would recommend Stiolto or Anoro on discharge GI - No acute issues RENAL/LYTES - -- S/p SOL Monitor BUNs/creatinine Avoid nephrotoxic medication ENDO - BG 140-180 per [facility] guidelines ISS if needed while inpatient HEME - Continue warfarin ID - No acute concerns --Prophylaxis VTE: Warfarin GI: Pepcid Lines: Peripheral Diet: N.p.o. Plan: In/out: -198, urine output 765 Will try to see if they are able to wean off isoproterenol. EKG from today shows QTc of 489. DC trazodone Avoid QT prolonging medication I doubt patient will have a need for pacemaker. If the patient is able to be off isoproterenol then we will consider downgrading her later today. Brovana and budesonide nebulizer while in the hospital Resume warfarin later today. Case was discussed with primary team I have personally spent 36 minutes of critical care time in the direct management of this patient. This is a life/limb threatening event. This includes time spent evaluating patient, direct bedside care, chart review, placing orders, interpretation of diagnostic studies, discussion with consultants, patient, and family members, as well as other required patient management activities. This time is exclusive of all separately billable procedures, and teaching time and separate from and in addition to any other critical care service time. Thank you for allowing us to participate in the care of this patient. Please refer to my attending physician's documentation for any further recommendations. Admission and Anticipated Discharge Date Admission Date: September 26, 2024 Subjective Patient seen and examined at bedside. No acute distress, no adverse events overnight She was on 1 of isoproterenol. Heart rate was in the mid 80s. Systolic blood pressure in the 140s She stated that she is feeling much better. Denied any dizziness, no nausea vomiting No shortness of breath Was saturating 98-99% on 2 L nasal cannula. No headache, no dizziness Review of Systems 2 Review of Systems: All systems reviewed & are unremarkable except as noted in Subjective Physical Exam 2 Physical Exam: Constitutional: No acute distress HEENT: EOMI, PERRLA Respiratory system: Decreased air entry bilaterally, no wheeze, no rhonchi, positive crackles bilateral lower lobe CVS: S1-S2 positive, no murmurs or gallops Abdomen: Soft, nontender, nondistended, positive bowel sounds x4 Extremities: +2 pulses bilaterally radialis/ dorsalis pedis, no cyanosis, no edema Neuro: Awake alert oriented x3 Psych: Normal mood and affect G/U: Positive [place] Skin: no rashes, warm and dry Lymphatic: no cervical or axillary lymphadenopathy Results & Data Results & Data Vital Signs (Past 12 Hours) Vital Signs Temp Pulse Resp BP Pulse Ox O2 Del Method O2 Flow Rate 09/29/24 06:09 36.6 C 79 19 96 09/29/24 06:00 130/73 09/29/24 05:54 36.7 C 78 15 96 09/29/24 05:00 36.6 C 79 25 H 97 09/29/24 05:00 126/68 09/29/24 05:00 126/68 09/29/24 05:00 126/68 09/29/24 04:00 140/62 09/29/24 04:00 140/62 09/29/24 04:00 140/62 09/29/24 04:00 36.5 C 78 17 92 09/29/24 03:27 36.5 C 75 14 95 09/29/24 02:00 36.6 C 73 15 93 09/29/24 02:00 113/57 L 09/29/24 02:00 113/57 L 09/29/24 01:00 36.6 C 75 24 95 09/29/24 01:00 130/60 09/29/24 01:00 130/60 09/29/24 01:00 130/60 09/29/24 01:00 130/60 09/29/24 00:03 36.4 C L 77 15 95 09/29/24 00:00 135/61 09/29/24 00:00 76 09/28/24 23:39 36.5 C 79 14 94 09/28/24 23:24 36.4 C L 68 13 94 09/28/24 23:00 134/67 09/28/24 22:27 36.4 C L 70 15 95 09/28/24 22:06 36.4 C L 68 17 95 09/28/24 21:00 36.4 C L 71 15 96 09/28/24 21:00 137/64 09/28/24 21:00 137/64 09/28/24 21:00 137/64 09/28/24 20:00 36.4 C L 69 26 H 95 09/28/24 20:00 126/62 09/28/24 20:00 Nasal Cannula 2 Laboratory Results 09/29/24 04:52 09/29/24 04:52 Coding Level of Care Code 76428 CRITICAL CARE 1ST 30-74M Diagnoses Acute on chronic diastolic heart failure I50.33 Acute hypoxic respiratory failure J96.01 Torsades de pointes I47.21 Prolonged QT interval R94.31 Gastroesophageal reflux disease, unspecified whether esophagitis present K21.9 Esophagitis presence: esophagitis presence not specified Hyperlipidemia, unspecified hyperlipidemia type E78.5 Hyperlipidemia type: unspecified Insulin dependent type 2 diabetes mellitus E11.9; Z79.4 Chronic atrial fibrillation I48.20 Chronic obstructive pulmonary disease, unspecified COPD type J44.9 COPD type: unspecified COPD Cardiac arrest I46.9 (5) GERD (gastroesophageal reflux disease) Esophagitis presence: esophagitis presence not specified Qualified Code(s): K 21.9 - Gastro-esophageal reflux disease without esophagitis (6) Hyperlipidemia Hyperlipidemia type: unspecified Qualified Code(s): E78.5 - Hyperlipidemia, unspecified (9) COPD (chronic obstructive pulmonary disease) COPD type: unspecified COPD Qualified Code(s): J44.9 - Chronic obstructive pulmonary disease, unspecified
[2024-09-29] MEDS ORDERED: LANTUS PER UNIT CHARGE SQ ONE (09:30)
[2024-09-29] MEDS ORDERED: MAGNESIUM SULFATE 1GM / D5W BAG IV ONE (11:21)
[2024-09-29] MEDS ORDERED: SODIUM BICARB 8.4% INJ 50 MEQ/50 ML SYR IV ONE (11:21)
[2024-09-29] MEDS: LANTUS PER UNIT CHARGE SQ ONE (11:40)
--- NOTE | 2024-09-29 13:28 | Pharmacy Report ---
Pharmacy Glycemic Short Note 2 - Date of Service September 29, 2024 - Glycemic Short BSG Results (Last 24 hours): 09/28/24 09/28/24 09/28/24 14:15 15:02 15:57 Glucose POC Glucose 228 H 171 H 159 H 09/28/24 09/28/24 09/28/24 17:06 18:01 19:02 Glucose POC Glucose 133 H 104 H 101 H 09/28/24 09/29/24 09/29/24 20:53 00:14 04:52 Glucose 115 H POC Glucose 95 99 09/29/24 09/29/24 09/29/24 05:19 09:07 11:32 Glucose POC Glucose 113 H 123 H 128 H OUTPATIENT ANTIDIABETIC REGIMEN: * Metformin, Insulin pump * A1c 12.2% 09/06/24 ASSESSMENT: * Patient with recent admission, readmitted for CHF exacerbation. Transferred to ICU last night for episode of Torsades, was requiring isoproterenol for bradycardia. * Patient has high insulin requirements outpatient with basal rates 8-8.9 units/hr depending on time of day. Required less with recent admission. * BSGs in the 300s initially with downward trend. Given 80 units of basal and trended downward with start of insulin infusion yesterday which has since been discontinued. BSG 123 mg/dL this morning, will continue with 80 units of basal for now * Patient was NPO and now ordered diet with lunch. Continue with current novolog parameters, consider tightening carb ratio if needed PLAN FOR INPATIENT GLYCEMIC CONTROL: * Hold outpatient oral diabetes medications * Basal insulin * Lantus 80 units SQ x1 this morning, reassess in AM * Bolus insulin * NovoLog per scale ACHS or Q6hrs while NPO * Goal Range: Low 110 mg/dL - High 160 mg/dL * Correction Factor: 15 mg/dL/unit * Nutritional / Prandial insulin per carb ratio of 1 unit per 5 grams CHO consumed
--- NOTE | 2024-09-29 14:52 | Cardiology Progress Note ---
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 -Repeat troponin normal. Repeat EKG without acute changes. Patient chest pain free. -Electrolytes WNL. Given IV Magnesium 2g. Recommend K >4 and magnesium >2 -Patient taking 3 QTc prolonging medications: sertraline, trazodone and lyrica. -Will discontinue and avoid QTc prolonging medications. -Isoproterenol started. Continue at 1mcg/min. Goal HR 70-80s. No further sustained arrhythmia. Continue to monitor telemetry. -Will hold off on IV diuresis for now 09/29/2024 Clinically stable today. No further arrhythmias with concerns as outlined above 1. Torsade de pointes 2. Prolonged QT corrected 3. Chronic diastolic heart failure 4. Hypoxic respiratory failure mixed etiology Plan: Patient weaned from isoproterenol. Maintain telemetry. Will attempt to possibly resume a very low-dose beta-adis tomorrow though rhythm appeared to be reverse rate dependent with good response to isoproterenol. QT prolongation improved on EKG this morning electrolytes and magnesium replaced Sertraline, trazodone, Lyrica on hold and not likely to resume Blood pressure improving will resume diuretics in a.m. Will follow telemetry. No current indications for defibrillator Admission and Anticipated Discharge Date Admission Date: September 26, 2024 Subjective Patient was seen and personally examined. No acute complaints overnight respiratory status stable. No further arrhythmias. Isoproterenol weaned off this morning. No bradycardia arrhythmias trazodone and metoprolol remain on hold. EKG this morning sinus rhythm with PACs and improved QT prolongation with QT corrected 40 Review of Systems Review of Systems: All systems reviewed & are unremarkable except as noted in Subjective Physical Exam Constitutional: + obese; no acute distress Eyes: PERRL, conjunctivae normal, anicteric sclerae ENMT: external ear and nose normal, oropharynx normal Neck: trachea midline, no thyromegaly Respiratory: Auscultation: + diminished lung sounds Cardiovascular: Rate/Rhythm: regular rate and regular rhythm Extremities: no edema Gastrointestinal (Abdomen): normal bowel sounds, soft, nontender, no hepatosplenomegaly Results & Data Vital Signs (Past 12 Hours) Vital Signs Temp Pulse Resp BP Pulse Ox O2 Del Method O2 Flow Rate 09/29/24 14:12 77 22 94 09/29/24 14:00 104/45 L 09/29/24 13:51 81 19 94 09/29/24 13:00 112/57 L 09/29/24 13:00 66 17 92 09/29/24 12:00 158/64 H 09/29/24 12:00 71 16 94 09/29/24 11:00 156/76 H 09/29/24 11:00 156/76 H 09/29/24 11:00 37.3 C 65 17 95 09/29/24 10:20 37.2 C 64 17 94 09/29/24 10:00 142/66 H 09/29/24 10:00 142/66 H 09/29/24 09:56 37.2 C 67 18 95 Nasal Cannula 2 09/29/24 09:14 36.9 C 73 16 89 L Room Air 09/29/24 09:00 141/84 H 09/29/24 09:00 141/84 H 09/29/24 08:56 36.9 C 82 24 93 09/29/24 08:02 36.8 C 80 14 95 09/29/24 08:00 150/71 H 09/29/24 08:00 150/71 H 09/29/24 08:00 150/71 H 09/29/24 08:00 Nasal Cannula 2 09/29/24 08:00 Nasal Cannula 09/29/24 07:51 36.8 C 79 17 96 09/29/24 07:00 36.8 C 80 17 96 09/29/24 07:00 147/67 H 09/29/24 06:09 36.6 C 79 19 96 09/29/24 06:00 130/73 09/29/24 05:54 36.7 C 78 15 96 09/29/24 05:00 36.6 C 79 25 H 97 02/24/25 05:00 126/68 09/29/24 05:00 126/68 09/29/24 05:00 126/68 09/29/24 04:00 140/62 09/29/24 04:00 140/62 09/29/24 04:00 140/62 09/29/24 04:00 36.5 C 78 17 92 09/29/24 03:27 36.5 C 75 14 95 Laboratory Results Laboratory Results - last 24 hr 09/28/24 09/28/24 09/28/24 15:02 15:57 17:06 WBC RBC Hgb Hct MCV MCH MCHC RDW Std Deviation RDW Coeff of Katrin Plt Count MPV PT INR Sodium Potassium Chloride Carbon Dioxide Anion Gap BUN Creatinine Est Cr Clr Drug Dosing eGFR BUN/Creatinine Ratio Glucose POC Glucose 171 H 159 H 133 H Calcium Phosphorus Magnesium 09/28/24 09/28/24 09/28/24 18:01 19:02 20:53 WBC RBC Hgb Hct MCV MCH MCHC RDW Std Deviation RDW Coeff of Katrin Plt Count MPV PT INR Sodium Potassium Chloride Carbon Dioxide Anion Gap BUN Creatinine Est Cr Clr Drug Dosing eGFR BUN/Creatinine Ratio Glucose POC Glucose 104 H 101 H 95 Calcium Phosphorus Magnesium 09/29/24 09/29/24 09/29/24 00:14 04:52 05:19 WBC 5.87 RBC 3.50 L Hgb 10.2 L Hct 32.4 L MCV 92.6 MCH 29.1 MCHC 31.5 L RDW Std Deviation 54.4 H RDW Coeff of Katrin 15.9 H Plt Count 144 MPV 11.2 PT 20.6 H INR 2.0 H Sodium 143 Potassium 5.0 Chloride 103 Carbon Dioxide 37 H Anion Gap 3 BUN 30 H Creatinine 0.96 Est Cr Clr Drug Dosing 58.6 eGFR 61.70 BUN/Creatinine Ratio 31.3 H Glucose 115 H POC Glucose 99 113 H Calcium 9.0 Phosphorus 3.8 D Magnesium 2.4 09/29/24 09/29/24 09:07 11:32 WBC RBC Hgb Hct MCV MCH MCHC RDW Std Deviation RDW Coeff of Katrin Plt Count MPV PT INR Sodium Potassium Chloride Carbon Dioxide Anion Gap BUN Creatinine Est Cr Clr Drug Dosing eGFR BUN/Creatinine Ratio Glucose POC Glucose 123 H 128 H Calcium Phosphorus Magnesium
--- NOTE | 2024-09-29 15:43 | Electrocardiogram Report ---
Test Reason : Blood Pressure : */* mmHG Vent. Rate : 64 BPM Atrial Rate : 64 BPM P-R Int : 140 ms QRS Dur : 88 ms QT Int : 474 ms P-R-T Axes : 77 29 16 degrees QTcB Int : 489 ms Sinus rhythm with Premature atrial complexes QTcB >= 480 msec Abnormal ECG When compared with ECG of 28-Sep-2024 04:20, T wave inversion no longer evident in Lateral leads Confirmed by Gunner Stephens [id number] on 09/29/2024 3:43:23 PM Referred By: REFERRED SELF Confirmed By: Gunner Stephens
--- NOTE | 2024-09-29 17:47 | Hospitalist Progress Note ---
Date of Service September 29, 2024 Assessment & Plan (1) Acute hypoxic respiratory failure: (2) Acute on chronic diastolic heart failure: Plan: Graciela Mobley is a 74y/o F with PMHx significant for insulin-dependent DM type II, diabetic polyneuropathy, PAD, COPD, asthma, chronic A-fib anticoagulated on warfarin, chronic diastolic HF, CAD, history of DVT, vitamin B12 deficiency, GERD without esophagitis, senile osteoporosis, cervical spinal stenosis, prior tobacco use and depression who presented to the ED via EMS with complaint of SOB. Patient been doing well at home following discharge on 09/11/24 up until last evening when she started to develop SOB - notably worse with exertion. Was found to be saturating in the low 80s SpO2 on RA by EMS. Had to initially be placed on 10L nonrebreather en route to ED. Now de-escalated to 4L NC at time of evaluation and saturating in the mid 90s SpO2. Patient recently admitted under our service from 09/05/24 to 09/11/24. She was managed for the following: acute COPD exacerbation with sepsis 2/2 superimposed bronchitis ISO RSV infection, DKA and acute on chronic diastolic HF. Successfully weaned off of supplemental O2 prior to discharge. PT/OT had recommended rehab on discharge however patient preferred to be discharged home with services. Acute respiratory failure with hypoxia likely multifactorial: CHF in setting of COPD/asthma Acute on chronic diastolic heart failure Chronic troponin elevation-improved when compared to prior --CXR:Mild CHF suspected. Basilar pneumonia not excluded in the appropriate clinical context. --Venous Doppler: No evidence for DVT of the bilateral lower extremity -- Normal procalcitonin --Last ECHO:09/06/24: LVEF of 60 to 65%, moderate concentric LVH, focal area of akinesis involving the apical inferior wall otherwise normal wall motion, moderately calcified AV, mild valvular , mild MR, mild TR and grade II DD. -Titrate down oxygen as able Monitor volume status, renal function, electrolytes Appreciate cardiology input Monitor I's and O's, daily weight Fluid restriction May need 2 step prior to discharge Continue Imdur IV diuresis, metoprolol held for now Plan to resume diuretics, metoprolol tomorrow Downgrade to PCU today Torsades de pointes Prolonged QT Permanent atrial fibrillation Patient had 2 episodes of bradycardia with torsades overnight requiring brief chest compressions. CODE BLUE on 09/28/2024 --ECHO: EF 60 to 65%. Right ventricular cavity size is normal. Right ventricular systolic function is normal. Mild valvular aortic stenosis. Mild mitral and tricuspid regurgitation. Estimated systolic pulmonary pressure 44 m mHg. Mild pulmonary hypertension. --QT prolonging medications sertraline, trazodone discontinued Monitor and replete electrolytes as needed isoproterenol ggt discontinued Appreciate cardiology, critical care input Plan to resume metoprolol tomorrow (3) Elevated troponin: Plan: Likely demand ischemia secondary to above (4) Supratherapeutic INR: Plan: No bleeding issues Resolved Monitor INR: 2.0 today Resume Coumadin today (5) Chronic atrial fibrillation: Plan: Continue metoprolol Continue Coumadin (6) COPD (chronic obstructive pulmonary disease): Plan: Nebs as needed Would recommend Stiolto or Anoro on discharge Monitor (7) Depression: Plan: Zoloft discontinued due to torsades/QT prolongation (8) Diabetic polyneuropathy: (9) Insulin dependent type 2 diabetes mellitus: Plan: Uncontrolled Hgb A1c 12.2% Hold p.o. medications Has insulin pump at home Continue insulin per protocol Glycemic pharmacy to assist with management. Monitor blood glucose levels (10) HTN (hypertension): Plan: BP stable Monitor (11) Hyperlipidemia: Plan: On statin (12) Coronary artery disease: Plan: Continue ASA, rosuvastatin, metoprolol (13) GERD (gastroesophageal reflux disease): Plan: Continue Pepcid. DVT Px: Coumadin CODE STATUS Full code Disposition PT OT prior to discharge Admission and Anticipated Discharge Date Admission Date: September 26, 2024 Subjective Patient is seen and examined at bedside States feeling better today Denies any chest pains Still has some dyspnea Weaned off of isoproterenol drip Discussed with cardiology today No other complaints Review of Systems Review of Systems: All systems reviewed & are unremarkable except as noted in Subjective Physical Exam Physical Exam: Physical Exam: Vitals signs as noted above General Appearance:Obese, no apparent distress Head: normocephalic, Atraumatic Eyes: normal inspection, EOMI Neck: supple, Trachea midline Respiratory/Chest: Normal breath sounds, basal crackles, No accessory muscle use Cardiovascular: S1, S2, + murmur Abdomen/GI:Soft, Non tender, Bowel sounds present Extremities/Musculoskeletal:normal inspection, Trace edema Neurologic/Psych:AAOX3, grossly no focal neurological deficits Skin: normal color, warm Results & Data Results & Data Vital Signs (Past 12 Hours) Vital Signs Temp Pulse Resp BP Pulse Ox Pulse Ox Pulse Ox 09/29/24 16:16 93 90 09/29/24 16:00 135/58 L 09/29/24 16:00 37.1 C 64 24 93 09/29/24 15:06 65 20 92 09/29/24 15:00 112/54 L 09/29/24 14:57 65 16 92 09/29/24 14:43 121/68 09/29/24 14:12 77 22 94 09/29/24 14:00 104/45 L 09/29/24 13:51 81 19 94 09/29/24 13:00 112/57 L 09/29/24 13:00 66 17 92 09/29/24 12:00 158/64 H 09/29/24 12:00 71 16 94 09/29/24 11:00 156/76 H 09/29/24 11:00 156/76 H 09/29/24 11:00 37.3 C 65 17 95 09/29/24 10:20 37.2 C 64 17 94 09/29/24 10:00 142/66 H 09/29/24 10:00 142/66 H 09/29/24 09:56 37.2 C 67 18 95 09/29/24 09:14 36.9 C 73 16 89 L 09/29/24 09:00 141/84 H 09/29/24 09:00 141/84 H 09/29/24 08:56 36.9 C 82 24 93 09/29/24 08:02 36.8 C 80 14 95 09/29/24 08:00 150/71 H 09/29/24 08:00 150/71 H 09/29/24 08:00 150/71 H 09/29/24 08:00 09/29/24 08:00 09/29/24 07:51 36.8 C 79 17 96 09/29/24 07:00 36.8 C 80 17 96 09/29/24 07:00 147/67 H 09/29/24 06:09 36.6 C 79 19 96 09/29/24 06:00 130/73 09/29/24 05:54 36.7 C 78 15 96 O2 Del Method O2 Flow Rate O2 Flow Rate O2 Flow Rate 09/29/24 16:16 0 0 09/29/24 16:00 09/29/24 16:00 Room Air 09/29/24 15:06 Room Air 09/29/24 15:00 09/29/24 14:57 09/29/24 14:43 09/29/24 14:12 09/29/24 14:00 09/29/24 13:51 09/29/24 13:00 09/29/24 13:00 09/29/24 12:00 09/29/24 12:00 09/29/24 11:00 09/29/24 11:00 09/29/24 11:00 09/29/24 10:20 09/29/24 10:00 09/29/24 10:00 09/29/24 09:56 Nasal Cannula 2 09/29/24 09:14 Room Air 09/29/24 09:00 09/29/24 09:00 09/29/24 08:56 09/29/24 08:02 09/29/24 08:00 09/29/24 08:00 09/29/24 08:00 09/29/24 08:00 Nasal Cannula 2 09/29/24 08:00 Nasal Cannula 09/29/24 07:51 09/29/24 07:00 09/29/24 07:00 09/29/24 06:09 09/29/24 06:00 09/29/24 05:54 Laboratory Results Short CBC 09/29/24 Range/Units 04:52 WBC 5.87 (4.8-10.8) K/ul Hgb 10.2 L (12.0-16.0) g/dl Hct 32.4 L (37.0-47.0) % Plt Count 144 (130-400) K/uL BMP 09/29/24 04:52 Sodium 143 Potassium 5.0 Chloride 103 Carbon Dioxide 37 H BUN 30 H Creatinine 0.96 Glucose 115 H Calcium 9.0 (6) COPD (chronic obstructive pulmonary disease) COPD type: unspecified COPD Qualified Code(s): J44.9 - Chronic obstructive pulmonary disease, unspecified (7) Depression Depression Type: unspecified Qualified Code(s): F32.A - Depression, unspecified (8) Diabetic polyneuropathy Diabetes mellitus type: type 2 Qualified Code(s): E11.42 - Type 2 diabetes mellitus with diabetic polyneuropathy (10) HTN (hypertension) Hypertension type: unspecified Qualified Code(s): I10 - Essential (primary) hypertension (11) Hyperlipidemia Hyperlipidemia type: unspecified Qualified Code(s): E78.5 - Hyperlipidemia, u nspecified (12) Coronary artery disease Coronary Disease-Associated Artery/Lesion type: unspecified vessel or lesion type [place] vs. transplanted heart: [place] heart Associated angina: unspecified whether angina present Qualified Code(s): I25.10 - Atherosclerotic heart disease of [place] coronary artery without angina pectoris (13) GERD (gastroesophageal reflux disease) Esophagitis presence: esophagitis presence not specified Qualified Code(s): K21.9 - Gastro-esophageal reflux disease without esophagitis
[2024-09-29] MEDS: WARFARIN SOD 1 MG TAB PO SCH (18:47)
[2024-09-29] MEDS: FORMOTEROL 20 MCG/2 ML VIAL NEB SCH (19:42)
[2024-09-29] MEDS: BUDESONIDE 0.25 MG/2 ML VIAL (PULMICORT) NEB SCH (19:42)
[2024-09-30 05:38] LABS: INR 1.7 (0.9-1.1); Prothrombin Time 17.3 Seconds (9.0-12.0)
[2024-09-30 05:53] LABS: BUN Creatinine Ratio 23.5 (10-20); Calcium 8.4 mg/dl (8.6-10.3); Creatinine Clr Calc Pharmacy 67.9 ml/min; Phosphorus 3.2 mg/dl (2.5-4.9)
[2024-09-30] MEDS: LANTUS PER UNIT CHARGE SQ SCH (09:16)
--- NOTE | 2024-09-30 11:36 | Cardiology Progress Note ---
Date of Service September 30, 2024 Assessment & Plan (1) Torsades de pointes: (2) Acute on chronic diastolic heart failure: (3) Acute hypoxic respiratory failure: (4) Prolonged QT interval: Plan Torsades de pointes Prolonged QTc Acute on chronic diastolic HF Acute hypoxic resp failure Permanent AF CAD -[employer] RCA with collaterals, 30-40% prox LCx and mild irregularities elsewhere; medical management recommended 11/2023 -CATH complicated by AF RVR and hypotension requiring JORGE/DCCV HTN Mild aortic stenosis PFO COPD Hx DVTs DM -Patient with 2 episodes bradycardia with torsades overnight requiring brief compressions in setting of prolonged QTc, acute hypoxic resp failure and acute on chronic diastolic HF. -Repeat troponin normal. Repeat EKG without acute changes. Patient chest pain free. -Electrolytes WNL. Given IV Magnesium 2g. Recommend K >4 and magnesium >2 -Patient taking 3 QTc prolonging medications: sertraline, trazodone and lyrica. -Will discontinue and avoid QTc prolonging medications. -Isoproterenol started. Continue at 1mcg/min. Goal HR 70-80s. No further sustained arrhythmia. Continue to monitor telemetry. -Will hold off on IV diuresis for now 09/29/2024 Clinically stable today. No further arrhythmias with concerns as outlined above 1. Torsade de pointes 2. Prolonged QT corrected 3. Chronic diastolic heart failure 4. Hypoxic respiratory failure mixed etiology Plan: Patient weaned from isoproterenol. Maintain telemetry. Will attempt to possibly resume a very low-dose beta-adis tomorrow though rhythm appeared to be reverse rate dependent with good response to isoproterenol. QT prolongation improved on EKG this morning electrolytes and magnesium replaced 09/30/2024 Continues to demonstrate clinical improvement. No arrhythmias on telemetry. Still with oxygen requirements. Will give furosemide 20 mg p.o. today. Begin mobilization. Will continue to hold metoprolol given resting bradycardia Warfarin resumed Will need continued assessment of oxygen requirements possible oxygen supple mentation on discharge Sertraline, trazodone, Lyrica on hold and not likely to resume Blood pressure improving will resume diuretics in a.m. Will follow telemetry. No current indications for defibrillator Admission and Anticipated Discharge Date Admission Date: September 26, 2024 Subjective Patient seen and personally examined. Chart medications telemetry reviewed. No further arrhythmias on telemetry. Feeling improved since hospitalization. Still with oxygen requirements. No chest pains tachypalpitations syncope or near syncope. Mild residual pedal edema. No nausea or vomiting. Review of Systems Review of Systems: All systems reviewed & are unremarkable except as noted in Subjective Physical Exam Constitutional: + obese; no acute distress Eyes: PERRL, conjunctivae normal, anicteric sclerae ENMT: external ear and nose normal, oropharynx normal Neck: trachea midline, no thyromegaly Respiratory: Auscultation: + diminished lung sounds Cardiovascular: Rate/Rhythm: regular rate and regular rhythm Extremities: no edema Gastrointestinal (Abdomen): normal bowel sounds, soft, nontender, no hepatosplenomegaly Results & Data Vital Signs (Past 12 Hours) Vital Signs Temp Pulse Pulse Resp BP BP Pulse Ox 09/30/24 11:00 36.6 C 60 18 115/60 09/30/24 07:09 66 09/30/24 07:05 09/30/24 07:00 36.7 C 67 19 150/74 H 96 09/30/24 06:12 36.8 C 65 17 98 09/30/24 04:00 126/61 09/30/24 04:00 36.7 C 67 22 96 09/30/24 02:00 36.8 C 68 17 96 09/30/24 00:00 136/62 09/30/24 00:00 136/62 09/30/24 00:00 36.9 C 79 97 09/30/24 00:00 72 O2 Del Method O2 Flow Rate 09/30/24 11:00 Nasal Cannula 3 09/30/24 07:09 09/30/24 07:05 Nasal Cannula 2 09/30/24 07:00 09/30/24 06:12 09/30/24 04:00 09/30/24 04:00 09/30/24 02:00 09/30/24 00:00 09/30/24 00:00 09/30/24 00:00 09/30/24 00:00 Laboratory Results Laboratory Results - last 24 hr 09/29/24 09/29/24 09/29/24 11:32 16:14 21:01 PT INR Sodium Potassium Chloride Carbon Dioxide Anion Gap BUN Creatinine Est Cr Clr Drug Dosing eGFR BUN/Creatinine Ratio Glucose POC Glucose 128 H 191 H 146 H Calcium Phosphorus Magnesium 09/30/24 09/30/24 09/30/24 04:42 07:31 11:09 PT 17.3 H INR 1.7 H Sodium 141 Potassium 4.0 Chloride 106 Carbon Dioxide 34 H Anion Gap 1 L BUN 19 Creatinine 0.81 Est Cr Clr Drug Dosing 67.9 eGFR 75.65 BUN/Creatinine Ratio 23.5 H Glucose 116 H POC Glucose 133 H 222 H Calcium 8.4 L Phosphorus 3.2 Magnesium 2.0
[2024-09-30] MEDS: FUROSEMIDE 20 MG TAB PO SCH (12:18)
--- NOTE | 2024-09-30 14:07 | Hospitalist Progress Note ---
Date of Service September 30, 2024 Assessment & Plan (1) Acute hypoxic respiratory failure: (2) Acute on chronic diastolic heart failure: Plan: Graciela Mobley is a 74y/o F with PMHx significant for insulin-dependent DM type II, diabetic polyneuropathy, PAD, COPD, asthma, chronic A-fib anticoagulated on warfarin, chronic diastolic HF, CAD, history of DVT, vitamin B12 deficiency, GERD without esophagitis, senile osteoporosis, cervical spinal stenosis, prior tobacco use and depression who presented to the ED via EMS with complaint of SOB. Patient been doing well at home following discharge on 09/11/24 up until last evening when she started to develop SOB - notably worse with exertion. Was found to be saturating in the low 80s SpO2 on RA by EMS. Had to initially be placed on 10L nonrebreather en route to ED. Now de-escalated to 4L NC at time of evaluation and saturating in the mid 90s SpO2. Patient recently admitted under our service from 09/05/24 to 09/11/24. She was managed for the following: acute COPD exacerbation with sepsis 2/2 superimposed bronchitis ISO RSV infection, DKA and acute on chronic diastolic HF. Successfully weaned off of supplemental O2 prior to discharge. PT/OT had recommended rehab on discharge however patient preferred to be discharged home with services. Acute respiratory failure with hypoxia likely multifactorial: CHF in setting of COPD/asthma Acute on chronic diastolic heart failure Chronic troponin elevation-improved when compared to prior --CXR:Mild CHF suspected. Basilar pneumonia not excluded in the appropriate clinical context. --Venous Doppler: No evidence for DVT of the bilateral lower extremity -- Normal procalcitonin --Last ECHO:09/06/24: LVEF of 60 to 65%, moderate concentric LVH, focal area of akinesis involving the apical inferior wall otherwise normal wall motion, moderately calcified AV, mild valvular , mild MR, mild TR and grade II DD. -Titrate down oxygen as able Monitor volume status, renal function, electrolytes Appreciate cardiology input Monitor I's and O's, daily weight Fluid restriction May need 2 step prior to discharge Continue Imdur IV diuresis, metoprolol held for now Plan to resume diuretics tomorrow per cardiology--20 mg daily Currently no indication for defibrillator Continue to hold metoprolol due to bradycardia Continue to monitor in PCU Torsades de pointes Prolonged QT Permanent atrial fibrillation Patient had 2 episodes of bradycardia with torsades overnight requiring brief chest compressions. CODE BLUE on 09/28/2024 --ECHO: EF 60 to 65%. Right ventricular cavity size is normal. Right ventricular systolic function is normal. Mild valvular aortic stenosis. Mild mitral and tricuspid regurgitation. Estimated systolic pulmonary pressure 44 mmHg. Mild pulmonary hypertension. --QT prolonging medications sertraline, trazodone discontinued Monitor and replete electrolytes as needed isoproterenol ggt discontinued Appreciate cardiology, critical care input Metoprolol currently on hold (3) Elevated troponin: Plan: Likely demand ischemia secondary to above (4) Supratherapeutic INR: Plan: No bleeding issues Resolved Monitor INR: 1.7 today Increase Coumadin to 5 mg today Monitor and adjust Coumadin dose as needed (5) Chronic atrial fibrillation: Plan: Continue metoprolol Continue Coumadin (6) COPD (chronic obstructive pulmonary disease): Plan: Nebs as needed Would recommend Stiolto or Anoro on discharge Monitor (7) Depression: Plan: Zoloft discontinued due to torsades/QT prolongation (8) Diabetic polyneuropathy: (9) Insulin dependent type 2 diabetes mellitus: Plan: Uncontrolled Hgb A1c 12.2% Hold p.o. medications Has insulin pump at home Continue insulin per protocol Glycemic pharmacy to assist with management. Monitor blood glucose levels (10) HTN (hypertension): Plan: BP stable Monitor (11) Hyperlipidemia: Plan: On statin (12) Coronary artery disease: Plan: Continue ASA, rosuvastatin, metoprolol (13) GERD (gastroesophageal reflux disease): Plan: Continue Pepcid. DVT Px: Coumadin CODE STATUS Full code Disposition PT OT recommends rehab Admission and Anticipated Discharge Date Admission Date: September 26, 2024 Subjective Patient is seen and examined at bedside Doing well today Offers no new complaints today Updated patient's over the phone Saturating well on room air Patient denied any chest pain, dyspnea, nausea, vomiting, abdominal pain Review of Systems Review of Systems: All systems reviewed & are unremarkable except as noted in Subjective Physical Exam Physical Exam: Physical Exam: Vitals signs as noted above General Appearance:Obese, no apparent distress Head: normocephalic, Atraumatic Eyes: normal inspection, EOMI Neck: supple, Trachea midline Respiratory/Chest: Normal breath sounds, basal crackles, No accessory muscle use Cardiovascular: S1, S2, + murmur Abdomen/GI:Soft, Non tender, Bowel sounds present Extremities/Musculoskeletal:normal inspection, Trace edema Neurologic/Psych:AAOX3, grossly no focal neurological deficits Skin: normal color, warm Results & Data Results & Data Vital Signs (Past 12 Hours) Vital Signs Temp Pulse Pulse Resp BP BP Pulse Ox 09/30/24 12:58 09/30/24 11:00 36.6 C 60 18 115/60 09/30/24 07:09 66 09/30/24 07:05 09/30/24 07:00 36.7 C 67 19 150/74 H 96 09/30/24 06:12 36.8 C 65 17 98 09/30/24 04:00 126/61 09/30/24 04:00 36.7 C 67 22 96 O2 Del Method O2 Flow Rate 09/30/24 12:58 Room Air 09/30/24 11:00 Nasal Cannula 3 09/30/24 07:09 09/30/24 07:05 Nasal Cannula 2 09/30/24 07:00 09/30/24 06:12 09/30/24 04:00 09/30/24 04:00 Laboratory Results BMP 09/30/24 04:42 Sodium 141 Potassium 4.0 Chloride 106 Carbon Dioxide 34 H BUN 19 Creatinine 0.81 Glucose 116 H Calcium 8.4 L (6) COPD (chronic obstructive pulmonary disease) COPD type: unspecified COPD Qualified Code(s): J44.9 - Chronic obstructive pulmonary disease, unspecified (7) Depression Depression Type: unspecified Qualified Code(s): F32.A - Depression, unspecified (8) Diabetic polyneuropathy Diabetes mellitus type: type 2 Qualified Code(s): E11.42 - Type 2 diabetes mellitus with diabetic polyneuropathy (10) HTN (hypertension) Hypertension type: unspecified Qualified Code(s): I10 - Essential (primary) hypertension (11) Hyperlipidemia Hyperlipidemia type: unspecified Qualified Code(s): E78.5 - Hyperlipidemia, unspecified (12) Coronary artery disease Coronary Disease-Associated Artery/Lesion type: unspecified vessel or lesion type [place] vs. transplanted heart: [place] heart Associated angina: u nspecified whether angina present Qualified Code(s): I25.10 - Atherosclerotic heart disease of [place] coronary artery without angina pectoris (13) GERD (gastroesophageal reflux disease) Esophagitis presence: esophagitis presence not specified Qualified Code(s): K21.9 - Gastro-esophageal reflux disease without esophagitis
[2024-09-30] MEDS: WARFARIN SOD 5 MG TAB PO SCH (17:58)
[2024-10-01 05:39] LABS: Hemoglobin 11.1 g/dl (12.0-16.0); Mean Corpuscular Hemoglobin 28.9 pg (25.0-34.0); Mean Corpuscular Hgb Conc 32.6 g/dL (32.0-36.0); Mean Corpuscular Volume 88.5 fL (80.0-100.0); Mean Platelet Volume 11.5 fL (9.4-12.4); Platelet Count 142 K/uL (130-400); RDW Coefficient of Variation 15.1 % (11.5-14.5); RDW Standard Deviation 48.8 fL (36.4-46.3); Red Blood Count 3.84 M/uL (4.20-5.40); White Blood Count 5.79 K/ul (4.8-10.8)
[2024-10-01 05:54] LABS: BUN Creatinine Ratio 16.3 (10-20); Calcium 8.8 mg/dl (8.6-10.3); Creatinine Clr Calc Pharmacy 69.4 ml/min; Magnesium 1.8 mg/dl (1.7-2.4); Phosphorus 3.6 mg/dl (2.5-4.9); Potassium 4.1 mmol/L (3.5-5.1)
[2024-10-01 06:13] LABS: INR 1.3 (0.9-1.1)
--- NOTE | 2024-10-01 10:53 | Cardiology Progress Note ---
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 -Repeat troponin normal. Repeat EKG without acute changes. Patient chest pain free. -Electrolytes WNL. Given IV Magnesium 2g. Recommend K >4 and magnesium >2 -Patient taking 3 QTc prolonging medications: sertraline, trazodone and lyrica. -Will discontinue and avoid QTc prolonging medications. -Isoproterenol started. Continue at 1mcg/min. Goal HR 70-80s. No further sustained arrhythmia. Continue to monitor telemetry. -Will hold off on IV diuresis for now 09/29/2024 Clinically stable today. No further arrhythmias with concerns as outlined above 1. Torsade de pointes 2. Prolonged QT corrected 3. Chronic diastolic heart failure 4. Hypoxic respiratory failure mixed etiology Plan: Patient weaned from isoproterenol. Maintain telemetry. Will attempt to possibly resume a very low-dose beta-adis tomorrow though rhythm appeared to be reverse rate dependent with good response to isoproterenol. QT prolongation improved on EKG this morning electrolytes and magnesium replaced 09/30/2024 Continues to demonstrate clinical improvement. No arrhythmias on telemetry. Still with oxygen requirements. Will give furosemide 20 mg p.o. today. Begin mobilization. Will continue to hold metoprolol given resting bradycardia Warfarin resumed Will need continued assessment of oxygen requirements possible oxygen supple mentation on discharge Sertraline, trazodone, Lyrica on hold and not likely to resume Blood pressure improving will resume diuretics in a.m. Will follow telemetry. No current indications for defibrillator 10/01/2024 Continues to demonstrate clinical improvement. EKG this morning with mildly prolonged QT interval at 515. Transient atrial tachycardia last night no further torsade. Respiratory status improving. Recommendations: Will add magnesium to medical regimen at Warfarin resumed appropriate Begin metoprolol succinate 12.5 mg daily Reduce furosemide to 3 days/week as previous after today's dose Admission and Anticipated Discharge Date Admission Date: September 26, 2024 Subjective Patient was seen and examined, chart, medications, telemetry reviewed. Patient examined in the presence of . Patient feeling stronger "looking better per " no chest pain or worsening shortness of breath no productive cough. Received single dose of furosemide yesterday with prompt diuresis. Telemetry with transient run of atrial tachycardia earlier this morning. Still requiring oxygen supplementation but being tapered Review of Systems Review of Systems: All systems reviewed & are unremarkable except as noted in Subjective Physical Exam Constitutional: + obese; no acute distress Eyes: PERRL, conjunctivae normal, anicteric sclerae ENMT: external ear and nose normal, oropharynx normal Neck: trachea midline, no thyromegaly Respiratory: Auscultation: + diminished lung sounds Cardiovascular: Rate/Rhythm: regular rate and regular rhythm Heart Sounds: + murmur Vessels: no JVD Extremities: no edema Gastrointestinal (Abdomen): normal bowel sounds, soft, nontender, no hepatosplenomegaly Results & Data Vital Signs (Past 12 Hours) Vital Signs Temp Pulse Pulse Resp BP BP Pulse Ox 10/01/24 08:00 70 10/01/24 08:00 10/01/24 07:09 73 18 91 10/01/24 07:00 36.8 C 68 20 144/64 H 99 10/01/24 04:00 36.5 C 76 18 153/66 H 94 10/01/24 00:00 70 09/30/24 23:30 36.5 C 142/66 H 09/30/24 23:18 70 19 93 O2 Del Method O2 Flow Rate 10/01/24 08:00 10/01/24 08:00 Room Air 10/01/24 07:09 Nasal Cannula 1 10/01/24 07:00 Room Air 10/01/24 04:00 Nasal Cannula 1 10/01/24 00:00 09/30/24 23:30 09/30/24 23:18 Laboratory Results Laboratory Results - last 24 hr 09/30/24 09/30/24 09/30/24 11:09 16:27 19:19 WBC RBC Hgb Hct MCV MCH MCHC RDW Std Deviation RDW Coeff of Katrin Plt Count MPV PT INR Sodium Potassium Chloride Carbon Dioxide Anion Gap BUN Creatinine Est Cr Clr Drug Dosing eGFR BUN/Creatinine Ratio Glucose POC Glucose 222 H 141 H 172 H Calcium Phosphorus Magnesium 10/01/24 10/01/24 05:06 07:20 WBC 5.79 RBC 3.84 L Hgb 11.1 L Hct 34.0 L MCV 88.5 MCH 28.9 MCHC 32.6 RDW Std Deviation 48.8 H RDW Coeff of Katrin 15.1 H Plt Count 142 MPV 11.5 PT 14.0 H INR 1.3 H Sodium 141 Potassium 4.1 Chloride 105 Carbon Dioxide 32 Anion Gap 4 BUN 13 Creatinine 0.80 Est Cr Clr Drug Dosing 69.4 eGFR 76.79 BUN/Creatinine Ratio 16.3 Glucose 109 H POC Glucose 128 H Calcium 8.8 Phosphorus 3.6 Magnesium 1.8
[2024-10-01] MEDS ORDERED: METOPROLOL SUCC 50MG EXT REL TAB PO SCH (11:00)
[2024-10-01] MEDS: POLYETHYLENE (MIRALAX) 17 GM PACK PO SCH (11:55)
[2024-10-01] MEDS: MAGNESIUM OXIDE 400 MG TAB PO SCH (11:56)
[2024-10-01] MEDS: METOPROLOL SUCC 25MG EXT REL TAB PO SCH (11:56)
[2024-10-01] MEDS: DOCUSATE SODIUM 100 MG CAP PO SCH (11:56)
--- NOTE | 2024-10-01 18:30 | Hospitalist Progress Note ---
Date of Service October 01, 2024 Assessment & Plan (1) Acute hypoxic respiratory failure: (2) Acute on chronic diastolic heart failure: Plan: 74y/o F w/ insulin-dependent DM type II, diabetic polyneuropathy, PAD, COPD, asthma, chronic A-fib anticoagulated on warfarin, chronic diastolic HF, CAD, history of DVT, vitamin B12 deficiency, GERD without esophagitis, senile osteoporosis, cervical spinal stenosis, prior tobacco use and depression who presented to the ED via EMS with complaint of SOB. Patient been doing well at home following discharge on 09/11/24 up until last evening when she started to develop SOB - notably worse with exertion. Was found to be saturating in the low 80s SpO2 on RA by EMS. Had to initially be placed on 10L nonrebreather en route to ED. Now de-escalated to 4L NC at time of evaluation and saturating in the mid 90s SpO2. Patient recently admitted under our service from 09/05/24 to 09/11/24. She was managed for the following: acute COPD exacerbation with sepsis 2/2 superimposed bronchitis ISO RSV infection, DKA and acute on chronic diastolic HF. Successfully weaned off of supplemental O2 prior to discharge. PT/OT had recommended rehab on discharge however patient preferred to be discharged home with services. Acute respiratory failure with hypoxia likely multifactorial: CHF in setting of COPD/asthma Acute on chronic diastolic heart failure Chronic troponin elevation-improved when compared to prior --CXR:Mild CHF suspected. Basilar pneumonia not excluded in the appropriate clinical context. --Venous Doppler: No evidence for DVT of the bilateral lower extremity -- Normal procalcitonin --Last ECHO:09/06/24: LVEF of 60 to 65%, moderate concentric LVH, focal area of akinesis involving the apical inferior wall otherwise normal wall motion, moderately calcified AV, mild valvular , mild MR, mild TR and grade II DD. -Titrate down oxygen as able Monitor volume status, renal function, electrolytes Cardiology consulted Monitor I's and O's, daily weight Fluid restriction May need 2 step prior to discharge Continue Imdur IV diuresis, metoprolol held for now Resume diuretics - furosemide 3/ week as previous dose Currently no indication for defibrillator Held metoprolol due to bradycardia - > now resumed 12.5 mg daily Continue to monitor in PCU Torsades de pointes Prolonged QT Permanent atrial fibrillation Patient had 2 episodes of bradycardia with torsades overnight requiring brief chest compressions. CODE BLUE on 09/28/2024 --ECHO: EF 60 to 65%. Right ventricular cavity size is normal. Right ventricular systolic function is normal. Mild valvular aortic stenosis. Mild mitral and tricuspid regurgitation. Estimated systolic pulmonary pressure 44 mmHg. Mild pulmonary hypertension. --QT prolonging medications sertraline, trazodone discontinued Monitor and replete electrolytes as needed isoproterenol ggt discontinued Appreciate cardiology, critical care input (3) Elevated troponin: Plan: Likely demand ischemia secondary to above (4) Supratherapeutic INR: Plan: No bleeding issues Resolved Monitor INR: 1.3 today Cont. Coumadin Monitor and adjust Coumadin dose as needed (5) Chronic atrial fibrillation: Plan: Continue metoprolol Continue Coumadin (6) COPD (chronic obstructive pulmonary disease): Plan: Nebs as needed Would recommend Stiolto or Anoro on discharge, per pulm. Monitor (7) Depression: Plan: Zoloft discontinued due to torsades/QT prolongation (8) Diabetic polyneuropathy: (9) Insulin dependent type 2 diabetes mellitus: Plan: Uncontrolled Hgb A1c 12.2% Hold p.o. medications Has insulin pump at home Continue insulin per protocol Glycemic pharmacy to assist with management. Monitor blood glucose levels (10) HTN (hypertension): Plan: BP stable Monitor (11) Hyperlipidemia: Plan: On statin (12) Coronary artery disease: Plan: Continue ASA, rosuvastatin, metoprolol (13) GERD (gastroesophageal reflux disease): Plan: Continue Pepcid. DVT Px: Coumadin CODE STATUS Full code Disposition PT OT recommends rehab Admission and Anticipated Discharge Date Admission Date: September 26, 2024 Subjective Patient seen in follow up, CHF, Torsades Sitting up in chair in NAD, says she feels well Denies chest pain, shortness of breath, abd. pain, n/v Saturating well on room air Cardiology following closely and discussed with - metoprolol , furosemide adjusted Review of Systems Review of Systems: All systems reviewed & are unremarkable except as noted in Subjective Physical Exam Physical Exam: General Appearance:Obese, no apparent distress Head: normocephalic, Atraumatic Eyes: normal inspection, EOMI Neck: supple Respiratory/Chest: decreased breath sounds, No accessory muscle use Cardiovascular: S1, S2, + murmur Abdomen/GI:Soft, Non tender, Bowel sounds present Extremities/Musculoskeletal:normal inspection, Trace edema Neurologic/Psych:AAOX3, grossly no focal neurological deficits Skin: normal color, warm Results & Data Results & Data Vital Signs (Past 12 Hours) Vital Signs Temp Pulse Pulse Resp BP Pulse Ox O2 Del Method 10/01/24 16:00 36.8 C 80 18 116/59 L 94 Room Air 10/01/24 12:00 Room Air 10/01/24 11:36 37.2 C 96 H 18 131/69 94 Room Air 10/01/24 08:00 70 10/01/24 08:00 Room Air 10/01/24 07:09 73 18 91 Nasal Cannula 10/01/24 07:00 36.8 C 68 20 144/64 H 99 Room Air O2 Flow Rate 10/01/24 16:00 10/01/24 12:00 10/01/24 11:36 10/01/24 08:00 10/01/24 08:00 10/01/24 07:09 1 10/01/24 07:00 Laboratory Results 10/01/24 10/01/24 10/01/24 Range/Units 16:08 11:12 07:20 WBC (4.8-10.8) K/ul RBC (4.20-5.40) M/uL Hgb (12.0-16.0) g/dl Hct (37.0-47.0) % MCV (80.0-100.0) fL MCH (25.0-34.0) pg MCHC (32.0-36.0) g/dL RDW Std Deviation (36.4-46.3) fL RDW Coeff of Katrin (11.5-14.5) % Plt Count (130-400) K/uL MPV (9.4-12.4) fL PT (9.0-12.0) Seconds INR (0.9-1.1) Sodium (136-145) mmol/L Potassium (3.5-5.1) mmol/L Chloride (98-107) mmol/L Carbon Dioxide (21-32) mmol/L Anion Gap (3-11) BUN (6-23) mg/dl Creatinine (0.6-1.2) mg/dl Est Cr Clr Drug Dosing ml/min eGFR BUN/Creatinine Ratio (10-20) Glucose (70-99(Fasting)) mg/dl POC Glucose 247 H 216 H 128 H (70-99) mg/dl Calcium (8.6-10.3) mg/dl Phosphorus (2.5-4.9) mg/dl Magnesium (1.7-2.4) mg/dl 10/01/24 09/30/24 Range/Units 05:06 19:19 WBC 5.79 (4.8-10.8) K/ul RBC 3.84 L (4.20-5.40) M/uL Hgb 11.1 L (12.0-16.0) g/dl Hct 34.0 L (37.0-47.0) % MCV 88.5 (80.0-100.0) fL MCH 28.9 (25.0-34.0) pg MCHC 32.6 (32.0-36.0) g/dL RDW Std Deviation 48.8 H (36.4-46.3) fL RDW Coeff of Katrin 15.1 H (11.5-14.5) % Plt Count 142 (130-400) K/uL MPV 11.5 (9.4-12.4) fL PT 14.0 H (9.0-12.0) Seconds INR 1.3 H (0.9-1.1) Sodium 141 (136-145) mmol/L Potassium 4.1 (3.5-5.1) mmol/L Chloride 105 (98-107) mmol/L Carbon Dioxide 32 (21-32) mmol/L Anion Gap 4 (3-11) BUN 13 (6-23) mg/dl Creatinine 0.80 (0.6-1.2) mg/dl Est Cr Clr Drug Dosing 69.4 ml/min eGFR 76.79 BUN/Creatinine Ratio 16.3 (10-20) Glucose 109 H (70-99(Fasting)) mg/dl POC Glucose 172 H (70-99) mg/dl Calcium 8.8 (8.6-10.3) mg/dl Phosphorus 3.6 (2.5-4.9) mg/dl Magnesium 1.8 (1.7-2.4) mg/dl Medications Administered Current Inpatient Medications Acetaminophen (Acetaminophen 325 Mg Tab) 650 mg PO Q4H PRN PRN Reason: Pain or Fever Stop: 10/26/24 16:34 Last Admin: 09/28/24 08:13 Dose: 650 mg Aspirin (Aspirin 81 Mg Ectab) 81 mg PO QAM [facility] Stop: 10/27/24 08:59 Last Admin: 10/01/24 08:32 Dose: 81 mg Budesonide (Budesonide 0.25 Mg/2 Ml Vial (Pulmicort)) 0.25 mg NEB BIDR [facility] Stop: 10/29/24 18:59 Last Admin: 10/01/24 07:09 Dose: 0.25 mg Cyanocobalamin (Cyanocobalamin (B-12) 500 Mcg Tablet) 1,000 mcg PO DAILY [facility] Stop: 10/27/24 08:59 Last Admin: 10/01/24 08:33 Dose: 1,000 mcg Dextrose (Dextrose 50% 50 Ml Syringe) 25 - 50 ml IV UD PRN; Protocol PRN Reason: Hypoglycemia Protocol Stop: 10/26/24 16:34 Docusate Sodium (Docusate Sodium 100 Mg Cap) 100 mg PO BID [facility] Stop: 10/31/24 10:44 Last Admin: 10/01/24 11:56 Dose: 100 mg Famotidine (Famotidine 40 Mg Tablet) 40 mg PO DAILY [facility] Stop: 10/27/24 08:59 Last Admin: 10/01/24 08:32 Dose: 40 mg Fluticasone Propionate (Fluticasone Propionate Na Spr 16 Gm Btl) 2 sprays NA QAM [facility] Stop: 10/27/24 08:59 Last Admin: 10/01/24 08:31 Dose: 2 sprays Formoterol Fumarate (Formoterol 20 Mcg/2 Ml Vial) 20 mcg NEB BIDR [facility] Stop: 10/29/24 18:59 Last Admin: 10/01/24 07:09 Dose: 20 mcg Furosemide (Furosemide 20 Mg Tab) 20 mg PO QAM [facility] Stop: 10/30/24 11:59 Last Admin: 10/01/24 08:33 Dose: 20 mg Glucagon (Glucagon For Inj 1 Mg Vial) 1 mg SQ UD PRN; Protocol PRN Reason: Hypoglycemia Protocol Stop: 10/26/24 16:34 Glucose (Glucose 40% Gel 15 Gm Tube) 15 - 30 gm PO UD PRN; Protocol PRN Reason: Hypoglycemia Protocol Stop: 10/26/24 16:34 Glucose (Glucose 10 Tab/Tube) 4 - 8 tab PO UD PRN; Protocol PRN Reason: Hypoglycemia Protocol Stop: 10/26/24 16:34 Insulin Aspart (Insulin Aspart Per Unit Charge) 0 units SC ACHS [facility] Stop: 10/29/24 00:00 Last Admin: 10/01/24 16:36 Dose: 14 units Insulin Glargine (Lantus Per Unit Charge) 80 units SQ [facility] Stop: 10/30/24 08:59 Last Admin: 10/01/24 08:32 Dose: 80 units Isosorbide Mononitrate (Isosorbide [place] Extended Rel 60 Mg Tabcr) [facility] [place] Stop: 10/27/24 08:59 Last Admin: 10/01/24 08:33 Dose: 60 mg Magnesium Hydroxide (Magnesium Hydroxide Susp 30 Ml Udc) 30 ml PO Q12H PRN PRN Reason: Constipation Stop: 10/26/24 16:34 Magnesium Oxide (Magnesium Oxide 400 Mg Tab) 400 mg PO [facility] Stop: 10/31/24 11:14 Last Admin: 10/01/24 11:56 Dose: 400 mg Metoprolol Succinate (Metoprolol Succ 25mg Ext Rel Tab) 12.5 mg [facility] [place] Stop: 10/31/24 11:14 Last Admin: 10/01/24 11:56 Dose: 12.5 mg Miscellaneous (Carbohydrates For Hypoglycemia ) 15 - 30 gm PO UD PRN PRN Reason: Hypoglycemia Protocol Stop: 10/26/24 16:34 Miscellaneous Information (Pharmacy Glycemic Mgmt Consult) 1 each N/A UD PRN PRN Reason: Consult Stop: 10/26/24 16:34 Multivitamins (Multivitamin Tab) 1 tab [facility] [place] Stop: 10/27/24 08:59 Last Admin: 10/01/24 08:32 Dose: 1 tab Polyethylene Glycol (Polyethylene (Miralax) 17 Gm Pack) 17 gm PO DAILY [facility] Stop: 10/26/24 16:34 Last Admin: 10/01/24 11:55 Dose: 17 gm Rosuvastatin Calcium (Rosuvastatin Calcium 20 Mg Tab) 20 [facility] [place] Stop: 10/27/24 08:59 Last Admin: 10/01/24 08:32 Dose: 20 mg Vitamin D (Cholecalciferol 25 Mcg (1000 Units) Tab) 25 mcg PO QAM [facility] Stop: 10/27/24 08:59 Last Admin: 10/01/24 08:33 Dose: 25 mcg Warfarin Sodium (Warfarin Sod 5 Mg Tab) 5 mg PO DAILY@1600 [facility] Stop: 10/30/24 15:59 Last Admin: 10/01/24 16:33 Dose: 5 mg (6) COPD (chronic obstructive pulmonary disease) COPD type: unspecified COPD Qualified Code(s): J44.9 - Chronic obstructive pulmonary disease, unspecified (7) Depression Depression Type: unspecified Qualified Code(s): F32.A - Depression, unspecified (8) Diabetic polyneuropathy Diabetes mellitus type: type 2 Qualified Code(s): E11.42 - Type 2 diabetes mellitus with diabetic polyneuropathy (10) HTN (hypertension) Hypertension type: unspecified Qualified Code(s): I10 - Essential (primary) hypertension (11) Hyperlipidemia Hyperlipidemia type: unspecified Qualified Code(s): E78.5 - Hyperlipidemia, unspecified (12) Coronary artery disease Associated angina: unspecified whether angina present Coronary Disease- Associated Artery/Lesion type: unspecified vessel or lesion type [place] vs. transplanted heart: [place] heart Qualified Code(s): I25.10 - Atherosclerotic heart disease of [place] coronary artery without angina pectoris (13) GERD (gastroesophageal reflux disease) Esophagitis presence: esophagitis presence not specified Qualified Code(s): K21.9 - Gastro-esophageal reflux disease without esophagitis
[2024-10-02 07:40] LABS: Hematocrit (blood only) 34.5 % (37.0-47.0); Hemoglobin 11.1 g/dl (12.0-16.0); Mean Corpuscular Hemoglobin 28.6 pg (25.0-34.0); Mean Corpuscular Hgb Conc 32.2 g/dL (32.0-36.0); Mean Corpuscular Volume 88.9 fL (80.0-100.0); Mean Platelet Volume 11.3 fL (9.4-12.4); Platelet Count 165 K/uL (130-400); RDW Coefficient of Variation 15.3 % (11.5-14.5); RDW Standard Deviation 50.2 fL (36.4-46.3); Red Blood Count 3.88 M/uL (4.20-5.40); White Blood Count 7.44 K/ul (4.8-10.8)
[2024-10-02 07:58] LABS: INR 1.4 (0.9-1.1); Prothrombin Time 15.1 Seconds (9.0-12.0)
[2024-10-02 08:04] LABS: BUN Creatinine Ratio 21.3 (10-20); Calcium 8.9 mg/dl (8.6-10.3); Creatinine Clr Calc Pharmacy 69.4 ml/min; Magnesium 1.9 mg/dl (1.7-2.4); Phosphorus 3.4 mg/dl (2.5-4.9); Potassium 4.4 mmol/L (3.5-5.1)
--- NOTE | 2024-10-02 09:02 | Pharmacy Report ---
Pharmacy Glycemic Short Note 2 - Date of Service October 02, 2024 - Glycemic Short BSG Results (Last 24 hours): 10/01/24 10/01/24 10/01/24 11:12 16:08 19:54 Glucose POC Glucose 216 H 247 H 201 H 10/02/24 10/02/24 06:41 07:19 Glucose 159 H POC Glucose 161 H OUTPATIENT ANTIDIABETIC REGIMEN: * Metformin, Insulin pump * A1c 12.2% 09/06/24 ASSESSMENT: 10/02: * Graciela received 118 units of insulin yesterday, 80 of which were basal. Postprandial BSGs were elevated yesterday: [phone] mg/dL. * Fasting BSG today is 161 mg/dL. This is an increase from the previous days but still near goal range. Patient has tolerated current basal dose well so will not make any changes to basal as of now. * Given postprandial BSG elevations, will tighten carb ratio this morning. Also, will tighten upper end of goal range from 160 to 140 to help with postprandial control. 09/29: * Patient with recent admission, readmitted for CHF exacerbation. Transferred to ICU last night for episode of Torsades, was requiring isoproterenol for bradycardia. * Patient has high insulin requirements outpatient with basal rates 8-8.9 units/hr depending on time of day. Required less with recent admission. * BSGs in the 300s initially with downward trend. Given 80 units of basal and trended downward with start of insulin infusion yesterday which has since been discontinued. BSG 123 mg/dL this morning, will continue with 80 units of basal for now * Patient was NPO and now ordered diet with lunch. Continue with current novolog parameters, consider tightening carb ratio if needed PLAN FOR INPATIENT GLYCEMIC CONTROL: * Hold outpatient oral diabetes medications * Basal insulin * Lantus 80 units SC daily * Bolus insulin * NovoLog per scale ACHS or Q6hrs while NPO * Goal Range: Low 110 mg/dL - High 140 mg/dL * Correction Factor: 15 mg/dL/unit * Nutritional / Prandial insulin per carb ratio of 1 unit per 4 grams CHO consumed
[2024-10-02] MEDS: ENOXAPARIN 100 MG/1ML SYR SQ SCH (10:03)
--- NOTE | 2024-10-02 12:33 | Cardiology Progress Note ---
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 -Repeat troponin normal. Repeat EKG without acute changes. Patient chest pain free. -Electrolytes WNL. Given IV Magnesium 2g. Recommend K >4 and magnesium >2 -Patient taking 3 QTc prolonging medications: sertraline, trazodone and lyrica. -Will discontinue and avoid QTc prolonging medications. -Isoproterenol started. Continue at 1mcg/min. Goal HR 70-80s. No further sustained arrhythmia. Continue to monitor telemetry. -Will hold off on IV diuresis for now 09/29/2024 Clinically stable today. No further arrhythmias with concerns as outlined above 1. Torsade de pointes 2. Prolonged QT corrected 3. Chronic diastolic heart failure 4. Hypoxic respiratory failure mixed etiology Plan: Patient weaned from isoproterenol. Maintain telemetry. Will attempt to possibly resume a very low-dose beta-adis tomorrow though rhythm appeared to be reverse rate dependent with good response to isoproterenol. QT prolongation improved on EKG this morning electrolytes and magnesium replaced 09/30/2024 Continues to demonstrate clinical improvement. No arrhythmias on telemetry. Still with oxygen requirements. Will give furosemide 20 mg p.o. today. Begin mobilization. Will continue to hold metoprolol given resting bradycardia Warfarin resumed Will need continued assessment of oxygen requirements possible oxygen supple mentation on discharge Sertraline, trazodone, Lyrica on hold and not likely to resume Blood pressure improving will resume diuretics in a.m. Will follow telemetry. No current indications for defibrillator 10/01/2024 Continues to demonstrate clinical improvement. EKG this morning with mildly prolonged QT interval at 515. Transient atrial tachycardia last night no further torsade. Respiratory status improving. Recommendations: Will add magnesium to medical regimen at Warfarin resumed appropriate Begin metoprolol succinate 12.5 mg daily Reduce furosemide to 3 days/week as previous after today's dose 10/02/2024 No further arrhythmias. Medications currently optimized. Would begin mobilization and ambulation PT OT and possible rehab is discussed with patient. Follow-up cardiology 3 to 4 weeks Admission and Anticipated Discharge Date Admission Date: September 26, 2024 Subjective Patient seen and examined, chart, medications, telemetry reviewed. Continues to demonstrate improvement. No arrhythmias on telemetry. Tolerating low-dose beta-adis, diuretics EKG QT corrected 499 this morning Physical Exam Constitutional: + obese; no acute distress Eyes: PERRL, conjunctivae normal, anicteric sclerae ENMT: external ear and nose normal, oropharynx normal Neck: trachea midline, no thyromegaly Respiratory: Auscultation: + diminished lung sounds Cardiovascular: Rate/Rhythm: regular rate and regular rhythm Heart Sounds: + murmur Vessels: no JVD Extremities: no edema Gastrointestinal (Abdomen): normal bowel sounds, soft, nontender, no hepatosplenomegaly Results & Data Vital Signs (Past 12 Hours) Vital Signs Temp Pulse Resp BP Pulse Ox O2 Del Method 10/02/24 11:07 36.9 C 78 18 116/61 91 Room Air 10/02/24 07:29 36.5 C 73 16 152/80 H 92 Room Air 10/02/24 07:14 72 18 93 Room Air 10/02/24 04:16 36.6 C 76 18 145/74 H 92 Room Air Laboratory Results Laboratory Results - last 24 hr 10/01/24 10/01/24 10/02/24 16:08 19:54 06:41 WBC 7.44 RBC 3.88 L Hgb 11.1 L Hct 34.5 L MCV 88.9 MCH 28.6 MCHC 32.2 RDW Std Deviation 50.2 H RDW Coeff of Katrin 15.3 H Plt Count 165 MPV 11.3 PT 15.1 H INR 1.4 H Sodium 141 Potassium 4.4 Chloride 106 Carbon Dioxide 31 Anion Gap 4 BUN 17 Creatinine 0.80 Est Cr Clr Drug Dosing 69.4 eGFR 76.79 BUN/Creatinine Ratio 21.3 H Glucose 159 H POC Glucose 247 H 201 H Calcium 8.9 Phosphorus 3.4 Magnesium 1.9 10/02/24 10/02/24 07:19 11:38 WBC RBC Hgb Hct MCV MCH MCHC RDW Std Deviation RDW Coeff of Katrin Plt Count MPV PT INR Sodium Potassium Chloride Carbon Dioxide Anion Gap BUN Creatinine Est Cr Clr Drug Dosing eGFR BUN/Creatinine Ratio Glucose POC Glucose 161 H 201 H Calcium Phosphorus Magnesium
--- NOTE | 2024-10-02 13:52 | Hospitalist Progress Note ---
Date of Service October 02, 2024 Assessment & Plan (1) Acute hypoxic respiratory failure: (2) Acute on chronic diastolic heart failure: Plan: 74y/o F w/ insulin-dependent DM type II, diabetic polyneuropathy, PAD, COPD, asthma, chronic A-fib anticoagulated on warfarin, chronic diastolic HF, CAD, history of DVT, vitamin B12 deficiency, GERD without esophagitis, senile osteoporosis, cervical spinal stenosis, prior tobacco use and depression who presented to the ED via EMS with complaint of SOB. Patient been doing well at home following discharge on 09/11/24 up until last evening when she started to develop SOB - notably worse with exertion. Was found to be saturating in the low 80s SpO2 on RA by EMS. Had to initially be placed on 10L nonrebreather en route to ED. Now de-escalated to 4L NC at time of evaluation and saturating in the mid 90s SpO2. Patient recently admitted under our service from 09/05/24 to 09/11/24. She was managed for the following: acute COPD exacerbation with sepsis 2/2 superimposed bronchitis ISO RSV infection, DKA and acute on chronic diastolic HF. Successfully weaned off of supplemental O2 prior to discharge. PT/OT had recommended rehab on discharge however patient preferred to be discharged home with services. Acute respiratory failure with hypoxia likely multifactorial: CHF in setting of COPD/asthma Acute on chronic diastolic heart failure Chronic troponin elevation-improved when compared to prior --CXR:Mild CHF suspected. Basilar pneumonia not excluded in the appropriate clinical context. --Venous Doppler: No evidence for DVT of the bilateral lower extremity -- Normal procalcitonin --Last ECHO:09/06/24: LVEF of 60 to 65%, moderate concentric LVH, focal area of akinesis involving the apical inferior wall otherwise normal wall motion, moderately calcified AV, mild valvular , mild MR, mild TR and grade II DD. -Titrate down oxygen as able Monitor volume status, renal function, electrolytes Cardiology consulted Monitor I's and O's, daily weight Fluid restriction May need 2 step prior to discharge Continue Imdur IV diuresis, metoprolol held for now Resume diuretics - furosemide 3/ week as previous dose Currently no indication for defibrillator Held metoprolol due to bradycardia - > now resumed 12.5 mg daily Continue to monitor in PCU Torsades de pointes Prolonged QT Permanent atrial fibrillation Patient had 2 episodes of bradycardia with torsades overnight requiring brief chest compressions. CODE BLUE on 09/28/2024 --ECHO: EF 60 to 65%. Right ventricular cavity size is normal. Right ventricular systolic function is normal. Mild valvular aortic stenosis. Mild mitral and tricuspid regurgitation. Estimated systolic pulmonary pressure 44 mmHg. Mild pulmonary hypertension. --QT prolonging medications sertraline, trazodone discontinued Monitor and replete electrolytes as needed isoproterenol ggt discontinued Appreciate cardiology, critical care input (3) Elevated troponin: Plan: Likely demand ischemia secondary to above (4) Supratherapeutic INR: Plan: No bleeding issues Resolved Monitor INR: 1.4 today Cont. Coumadin , will give lovenox as well Monitor and adjust Coumadin dose as needed (5) Chronic atrial fibrillation: Plan: Continue metoprolol Continue Coumadin (6) COPD (chronic obstructive pulmonary disease): Plan: Nebs as needed Would recommend Stiolto or Anoro on discharge, per pulm. Monitor (7) Depression: Plan: Zoloft discontinued due to torsades/QT prolongation (8) Diabetic polyneuropathy: (9) Insulin dependent type 2 diabetes mellitus: Plan: Uncontrolled Hgb A1c 12.2% Hold p.o. medications Has insulin pump at home Continue insulin per protocol Glycemic pharmacy to assist with management. Monitor blood glucose levels (10) HTN (hypertension): Plan: BP stable Monitor (11) Hyperlipidemia: Plan: On statin (12) Coronary artery disease: Plan: Continue ASA, rosuvastatin, metoprolol (13) GERD (gastroesophageal reflux disease): Plan: Continue Pepcid. DVT Px: Coumadin CODE STATUS Full code Disposition PT OT recommends rehab/ snf Admission and Anticipated Discharge Date Admission Date: September 26, 2024 Subjective Patient seen in follow up, CHF, Torsades Sitting up in bed in NAD, says she feels well Denies chest pain, shortness of breath, abd. pain, n/v Saturating well on room air + constipation, bowel regimen increased Cardiology following closely and discussed with - metoprolol , furosemide adjusted Review of Systems Review of Systems: All systems reviewed & are unremarkable except as noted in Subjective Physical Exam Physical Exam: General Appearance:Obese, no apparent distress Head: normocephalic, Atraumatic Eyes: normal inspection, EOMI Neck: supple Respiratory/Chest: decreased breath sounds, No accessory muscle use Cardiovascular: S1, S2, + murmur Abdomen/GI:Soft, Non tender, Bowel sounds present Extremities/Musculoskeletal:normal inspection, Trace edema Neurologic/Psych:AAOX3, grossly no focal neurological deficits Skin: normal color, warm Results & Data Results & Data Vital Signs (Past 12 Hours) Vital Signs Temp Pulse Resp BP Pulse Ox O2 Del Method 10/02/24 11:07 36.9 C 78 18 116/61 91 Room Air 10/02/24 07:29 36.5 C 73 16 152/80 H 92 Room Air 10/02/24 07:14 72 18 93 Room Air 10/02/24 04:16 36.6 C 76 18 145/74 H 92 Room Air Laboratory Results 10/02/24 10/02/24 10/02/24 Range/Units 11:38 07:19 06:41 WBC 7.44 (4.8-10.8) K/ul RBC 3.88 L (4.20-5.40) M/uL Hgb 11.1 L (12.0-16.0) g/dl Hct 34.5 L (37.0-47.0) % MCV 88.9 (80.0-100.0) fL MCH 28.6 (25.0-34.0) pg MCHC 32.2 (32.0-36.0) g/dL RDW Std Deviation 50.2 H (36.4-46.3) fL RDW Coeff of Katrin 15.3 H (11.5-14.5) % Plt Count 165 (130-400) K/uL MPV 11.3 (9.4-12.4) fL PT 15.1 H (9.0-12.0) Seconds INR 1.4 H (0.9-1.1) Sodium 141 (136-145) mmol/L Potassium 4.4 (3.5-5.1) mmol/L Chloride 106 (98-107) mmol/L Carbon Dioxide 31 (21-32) mmol/L Anion Gap 4 (3-11) BUN 17 (6-23) mg/dl Creatinine 0.80 (0.6-1.2) mg/dl Est Cr Clr Drug Dosing 69.4 ml/min eGFR 76.79 BUN/Creatinine Ratio 21.3 H (10-20) Glucose 159 H (70-99(Fasting)) mg/dl POC Glucose 201 H 161 H (70-99) mg/dl Calcium 8.9 (8.6-10.3) mg/dl Phosphorus 3.4 (2.5-4.9) mg/dl Magnesium 1.9 (1.7-2.4) mg/dl 10/01/24 10/01/24 Range/Units 19:54 16:08 WBC (4.8-10.8) K/ul RBC (4.20-5.40) M/uL Hgb (12.0-16.0) g/dl Hct (37.0-47.0) % MCV (80.0-100.0) fL MCH (25.0-34.0) pg MCHC (32.0-36.0) g/dL RDW Std Deviation (36.4-46.3) fL RDW Coeff of Katrin (11.5-14.5) % Plt Count (130-400) K/uL MPV (9.4-12.4) fL PT (9.0-12.0) Seconds INR (0.9-1.1) Sodium (136-145) mmol/L Potassium (3.5-5.1) mmol/L Chloride (98-107) mmol/L Carbon Dioxide (21-32) mmol/L Anion Gap (3-11) BUN (6-23) mg/dl Creatinine (0.6-1.2) mg/dl Est Cr Clr Drug Dosing ml/min eGFR BUN/Creatinine Ratio (10-20) Glucose (70-99(Fasting)) mg/dl POC Glucose 201 H 247 H (70-99) mg/dl Calcium (8.6-10.3) mg/dl Phosphorus (2.5-4.9) mg/dl Magnesium (1.7-2.4) mg/dl Medications Administered Current Inpatient Medications Acetaminophen (Acetaminophen 325 Mg Tab) 650 mg PO Q4H PRN PRN Reason: Pain or Fever Stop: 10/26/24 16:34 Last Admin: 09/28/24 08:13 Dose: 650 mg Aspirin (Aspirin 81 Mg Ectab) 81 mg PO [facility] Stop: 10/27/24 08:59 Last Admin: 10/02/24 08:14 Dose: 81 mg Budesonide (Budesonide 0.25 Mg/2 Ml Vial (Pulmicort)) 0.25 mg NEB BIDR [facility] Stop: 10/29/24 18:59 Last Admin: 10/02/24 07:13 Dose: 0.25 mg Cyanocobalamin (Cyanocobalamin (B-12) 500 Mcg Tablet) 1,000 mcg PO DAILY [facility] Stop: 10/27/24 08:59 Last Admin: 10/02/24 08:13 Dose: 1,000 mcg Dextrose (Dextrose 50% 50 Ml Syringe) 25 - 50 ml IV UD PRN; Protocol PRN Reason: Hypoglycemia Protocol Stop: 10/26/24 16:34 Docusate Sodium (Docusate Sodium 100 Mg Cap) 100 mg PO BID [facility] Stop: 10/31/24 10:44 Last Admin: 10/02/24 08:19 Dose: 100 mg Enoxaparin Sodium (Enoxaparin 100 Mg/1ml Syr) 100 mg SQ Q12 [facility] Stop: 11/01/24 09:02 Last Admin: 10/02/24 10:03 Dose: 100 mg Famotidine (Famotidine 40 Mg Tablet) 40 mg PO DAILY [facility] Stop: 10/27/24 08:59 Last Admin: 10/02/24 08:14 Dose: 40 mg Fluticasone Propionate (Fluticasone Propionate Na Spr 16 Gm Btl) 2 sprays NA QAM [facility] Stop: 10/27/24 08:59 Last Admin: 10/02/24 08:15 Dose: 2 sprays Formoterol Fumarate (Formoterol 20 Mcg/2 Ml Vial) 20 mcg NEB BIDR [facility] Stop: 10/29/24 18:59 Last Admin: 10/02/24 07:14 Dose: 20 mcg Furosemide (Furosemide 20 Mg Tab) 20 mg PO QAM [facility] Stop: 10/30/24 11:59 Last Admin: 10/01/24 08:33 Dose: 20 mg Glucagon (Glucagon For Inj 1 Mg Vial) 1 mg SQ UD PRN; Protocol PRN Reason: Hypoglycemia Protocol Stop: 10/26/24 16:34 Glucose (Glucose 40% Gel 15 Gm Tube) 15 - 30 gm PO UD PRN; Protocol PRN Reason: Hypoglycemia Protocol Stop: 10/26/24 16:34 Glucose (Glucose 10 Tab/Tube) 4 - 8 tab PO UD PRN; Protocol PRN Reason: Hypoglycemia Protocol Stop: 10/26/24 16:34 Insulin Aspart (Insulin Aspart Per Unit Charge) 0 units SC [facility] Stop: 10/29/24 00:00 Last Admin: 10/02/24 12:02 Dose: 14 units Insulin Glargine (Lantus Per Unit Charge) 80 units SQ [facility] Stop: 10/30/24 08:59 Last Admin: 10/02/24 08:16 Dose: 80 units Isosorbide Mononitrate (Isosorbide Garvin Extended Rel 60 Mg Tabcr) 60 mg PO [facility] Stop: 10/27/24 08:59 Last Admin: 10/02/24 08:11 Dose: 60 mg Magnesium Hydroxide (Magnesium Hydroxide Susp 30 Ml Udc) 30 ml PO Q12H PRN PRN Reason: Constipation Stop: 10/26/24 16:34 Magnesium Oxide (Magnesium Oxide 400 Mg Tab) 400 mg PO [facility] Stop: 10/31/24 11:14 Last Admin: 10/02/24 08:14 Dose: 400 mg Metoprolol Succinate (Metoprolol Succ 25mg Ext Rel Tab) 12.5 mg PO [facility] Stop: 10/31/24 11:14 Last Admin: 10/02/24 08:14 Dose: 12.5 mg Miscellaneous (Carbohydrates For Hypoglycemia ) 15 - 30 gm PO UD PRN PRN Reason: Hypoglycemia Protocol Stop: 10/26/24 16:34 Miscellaneous Information (Pharmacy Glycemic Mgmt Consult) 1 each N/A UD PRN PRN Reason: Consult Stop: 10/26/24 16:34 Multivitamins (Multivitamin Tab) 1 tab PO [facility] Stop: 10/27/24 08:59 Last Admin: 10/02/24 08:15 Dose: 1 tab Polyethylene Glycol (Polyethylene (Miralax) 17 Gm Pack) 17 gm PO DAILY [facility] Stop: 10/26/24 16:34 Last Admin: 10/02/24 08:19 Dose: 17 gm Rosuvastatin Calcium (Rosuvastatin Calcium 20 Mg Tab) 20 mg PO [facility] Stop: 10/27/24 08:59 Last Admin: 10/02/24 08:14 Dose: 20 mg Vitamin D (Cholecalciferol 25 Mcg (1000 Units) Tab) 25 mcg PO [facility] Stop: 10/27/24 08:59 Last Admin: 10/02/24 08:12 Dose: 25 mcg Warfarin Sodium (Warfarin Sod 5 Mg Tab) 5 mg PO DAILY@1600 [facility]QU[facility] Stop: 10/30/24 15:59 Last Admin: 10/01/24 16:33 Dose: 5 mg (6) COPD (chronic obstructive pulmonary disease) COPD type: unspecified COPD Qualified Code(s): J44.9 - Chronic obstructive pulmonary disease, unspecified (7) Depression Depression Type: unspecified Qualified Code(s): F32.A - Depression, unspecified (8) Diabetic polyneuropathy Diabetes mellitus type: type 2 Qualified Code(s): E11.42 - Type 2 diabetes mellitus with diabetic polyneuropathy (10) HTN (hypertension) Hypertension type: unspecified Qualified Code(s): I10 - Essential (primary) hypertension (11) Hyperlipidemia Hyperlipidemia type: unspecified Qualified Code(s): E78.5 - Hyperlipidemia, unspecified (12) Coronary artery disease Associated angina: unspecified whether angina present Coronary Disease- Associated Artery/Lesion type: unspecified vessel or lesion type [place] vs. transplanted heart: [place] heart Qualified Code(s): I25.10 - Atherosclerotic heart disease of [place] coronary artery without angina pectoris (13) GERD (gastroesophageal reflux disease) Esophagitis presence: esophagitis presence not specified Qualified Code(s): K21.9 - Gastro-esophageal reflux disease without esophagitis
[2024-10-02] MEDS: bisacodyL 10 MG SUPP PR STA (14:49)
[2024-10-02] MEDS: POLYETHYLENE (MIRALAX) 17 GM PACK PO ONE (14:50)
[2024-10-03 07:25] LABS: Hematocrit (blood only) 32.5 % (37.0-47.0); Hemoglobin 10.7 g/dl (12.0-16.0); Mean Corpuscular Hemoglobin 29.2 pg (25.0-34.0); Mean Corpuscular Hgb Conc 32.9 g/dL (32.0-36.0); Mean Corpuscular Volume 88.6 fL (80.0-100.0); Mean Platelet Volume 11.9 fL (9.4-12.4); Platelet Count 153 K/uL (130-400); RDW Coefficient of Variation 15.7 % (11.5-14.5); RDW Standard Deviation 50.8 fL (36.4-46.3); Red Blood Count 3.67 M/uL (4.20-5.40); White Blood Count 7.11 K/ul (4.8-10.8)
[2024-10-03 07:51] LABS: BUN Creatinine Ratio 25.6 (10-20); Calcium 8.8 mg/dl (8.6-10.3); Creatinine Clr Calc Pharmacy 66.6 ml/min; Phosphorus 3.5 mg/dl (2.5-4.9); Potassium 4.1 mmol/L (3.5-5.1)
[2024-10-03 08:00] LABS: INR 1.7 (0.9-1.1); Prothrombin Time 17.5 Seconds (9.0-12.0)
--- NOTE | 2024-10-03 10:01 | Pharmacy Report ---
Pharmacy Glycemic Short Note 2 - Date of Service October 03, 2024 - Glycemic Short BSG Results (Last 24 hours): 10/02/24 10/02/24 10/02/24 11:38 16:24 21:31 Glucose POC Glucose 201 H 167 H 217 H 10/03/24 10/03/24 05:58 07:19 Glucose 157 H POC Glucose 168 H OUTPATIENT ANTIDIABETIC REGIMEN: * Metformin, Insulin pump * A1c 12.2% 09/06/24 ASSESSMENT: 10/03: * Received 122 units of insulin yesterday, 80 of which were basal. BSGs were: 680-160-147-217 mg/dL. * Fasting BSG remains above goal at 168 mg/dL this AM. Will continue with 80 units of basal in AM but add a scaled basal dose at bedtime to help with fasting hyperglycemia. * Tightened carb ratio again this morning due to postprandial elevations. 10/02: * Graciela received 118 units of insulin yesterday, 80 of which were basal. Postpra ndial BSGs were elevated yesterday: 109-791-208-201 mg/dL. * Fasting BSG today is 161 mg/dL. This is an increase from the previous days but still near goal range. Patient has tolerated current basal dose well so will not make any changes to basal as of now. * Given postprandial BSG elevations, will tighten carb ratio this morning. Also, will tighten upper end of goal range from 160 to 140 to help with postprandial control. 09/29: * Patient with recent admission, readmitted for CHF exacerbation. Transferred to ICU last night for episode of Torsades, was requiring isoproterenol for bradycardia. * Patient has high insulin requirements outpatient with basal rates 8-8.9 units/hr depending on time of day. Required less with recent admission. * BSGs in the 300s initially with downward trend. Given 80 units of basal and trended downward with start of insulin infusion yesterday which has since been discontinued. BSG 123 mg/dL this morning, will continue with 80 units of basal for now * Patient was NPO and now ordered diet with lunch. Continue with current novolog parameters, consider tightening carb ratio if needed PLAN FOR INPATIENT GLYCEMIC CONTROL: * Hold outpatient oral diabetes medications * Basal insulin * Lantus 80 units SC daily * Lantus 0-10 units SC HS (see eMAR for more details) * Bolus insulin * NovoLog per scale ACHS or Q6hrs while NPO * Goal Range: Low 110 mg/dL - High 140 mg/dL * Correction Factor: 15 mg/dL/unit * Nutritional / Prandial insulin per carb ratio of 1 unit per 3 grams CHO consumed
[2024-10-03] MEDS: FUROSEMIDE INJ 20 MG/2 ML VIAL IV ONE (11:15)
--- NOTE | 2024-10-03 11:44 | Cardiology Progress Note ---
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 -Repeat troponin normal. Repeat EKG without acute changes. Patient chest pain free. -Electrolytes WNL. Given IV Magnesium 2g. Recommend K >4 and magnesium >2 -Patient taking 3 QTc prolonging medications: sertraline, trazodone and lyrica. -Will discontinue and avoid QTc prolonging medications. -Isoproterenol started. Continue at 1mcg/min. Goal HR 70-80s. No further sustained arrhythmia. Continue to monitor telemetry. -Will hold off on IV diuresis for now 09/29/2024 Clinically stable today. No further arrhythmias with concerns as outlined above 1. Torsade de pointes 2. Prolonged QT corrected 3. Chronic diastolic heart failure 4. Hypoxic respiratory failure mixed etiology Plan: Patient weaned from isoproterenol. Maintain telemetry. Will attempt to possibly resume a very low-dose beta-adis tomorrow though rhythm appeared to be reverse rate dependent with good response to isoproterenol. QT prolongation improved on EKG this morning electrolytes and magnesium replaced 09/30/2024 Continues to demonstrate clinical improvement. No arrhythmias on telemetry. Still with oxygen requirements. Will give furosemide 20 mg p.o. today. Begin mobilization. Will continue to hold metoprolol given resting bradycardia Warfarin resumed Will need continued assessment of oxygen requirements possible oxygen supple mentation on discharge Sertraline, trazodone, Lyrica on hold and not likely to resume Blood pressure improving will resume diuretics in a.m. Will follow telemetry. No current indications for defibrillator 10/01/2024 Continues to demonstrate clinical improvement. EKG this morning with mildly prolonged QT interval at 515. Transient atrial tachycardia last night no further torsade. Respiratory status improving. Recommendations: Will add magnesium to medical regimen at Warfarin resumed appropriate Begin metoprolol succinate 12.5 mg daily Reduce furosemide to 3 days/week as previous after today's dose 10/02/2024 No further arrhythmias. Medications currently optimized. Would begin mobilization and ambulation PT OT and possible rehab is discussed with patient. Follow-up cardiology 3 to 4 weeks 10/03/2024 Patient seen in hospital for cardiac concerns of chronic diastolic heart failure and malignant arrhythmia of torsade de pointes secondary to QT prolongation, medication induced. Clinically improved no further arrhythmias. Patient on appropriate medical therapies Emphasized need to avoid medications discontinued in hospital and not resume including trazodone and sertraline and Lyrica Agree with plans for rehab. No further cardiac recommendations will sign off Admission and Anticipated Discharge Date Admission Date: September 26, 2024 Subjective Patient seen and personally examined. Participating in physical therapy. No chest pain shortness of breath or dizziness, tachypalpitations No arrhythmias on telemetry. Patient slowly getting stronger per patient oxygenating well on room air. Tolerating current medical regimen Review of Systems Review of Systems: All systems reviewed & are unremarkable except as noted in Subjective Physical Exam Constitutional: + obese; no acute distress Eyes: PERRL, conjunctivae normal, anicteric sclerae ENMT: external ear and nose normal, oropharynx normal Neck: trachea midline, no thyromegaly Respiratory: Auscultation: + diminished lung sounds Cardiovascular: Rate/Rhythm: regular rate and regular rhythm Heart Sounds: + murmur Vessels: no JVD Extremities: no edema Gastrointestinal (Abdomen): normal bowel sounds, soft, nontender, no hepatosplenomegaly Results & Data Vital Signs (Past 12 Hours) Vital Signs Temp Pulse Pulse Resp BP BP Pulse Ox 10/03/24 11:08 10/03/24 11:02 36.8 C 79 18 152/79 H 97 10/03/24 07:16 36.7 C 88 17 155/79 H 95 10/03/24 07:11 88 17 95 10/03/24 03:36 37.0 C 77 18 135/70 93 10/03/24 00:15 37.0 C 85 18 133/68 93 O2 Del Method 10/03/24 11:08 Room Air 10/03/24 11:02 Room Air 10/03/24 07:16 Room Air 10/03/24 07:11 Room Air 10/03/24 03:36 Room Air 10/03/24 00:15 Room Air Laboratory Results Laboratory Results - last 24 hr 10/02/24 10/02/24 10/03/24 16:24 21:31 05:58 WBC 7.11 RBC 3.67 L Hgb 10.7 L Hct 32.5 L MCV 88.6 MCH 29.2 MCHC 32.9 RDW Std Deviation 50.8 H RDW Coeff of Katrin 15.7 H Plt Count 153 MPV 11.9 PT 17.5 H INR 1.7 H Sodium 140 Potassium 4.1 Chloride 105 Carbon Dioxide 29 Anion Gap 6 BUN 21 Creatinine 0.82 Est Cr Clr Drug Dosing 66.6 eGFR 74.55 BUN/Creatinine Ratio 25.6 H Glucose 157 H POC Glucose 167 H 217 H Calcium 8.8 Phosphorus 3.5 Magnesium 2.0 10/03/24 10/03/24 07:19 11:01 WBC RBC Hgb Hct MCV MCH MCHC RDW Std Deviation RDW Coeff of Katrin Plt Count MPV PT INR Sodium Potassium Chloride Carbon Dioxide Anion Gap BUN Creatinine Est Cr Clr Drug Dosing eGFR BUN/Creatinine Ratio Glucose POC Glucose 168 H 221 H Calcium Phosphorus Magnesium
--- NOTE | 2024-10-03 14:37 | Hospitalist Progress Note ---
Date of Service October 03, 2024 Assessment & Plan (1) Acute hypoxic respiratory failure: (2) Acute on chronic diastolic heart failure: Plan: 74y/o F w/ insulin-dependent DM type II, diabetic polyneuropathy, PAD, COPD, asthma, chronic A-fib anticoagulated on warfarin, chronic diastolic HF, CAD, history of DVT, vitamin B12 deficiency, GERD without esophagitis, senile osteoporosis, cervical spinal stenosis, prior tobacco use and depression who presented to the ED via EMS with complaint of SOB. Patient been doing well at home following discharge on 09/11/24 up until last evening when she started to develop SOB - notably worse with exertion. Was found to be saturating in the low 80s SpO2 on RA by EMS. Had to initially be placed on 10L nonrebreather en route to ED. Now de-escalated to 4L NC at time of evaluation and saturating in the mid 90s SpO2. Patient recently admitted under our service from 09/05/24 to 09/11/24. She was managed for the following: acute COPD exacerbation with sepsis 2/2 superimposed bronchitis ISO RSV infection, DKA and acute on chronic diastolic HF. Successfully weaned off of supplemental O2 prior to discharge. PT/OT had recommended rehab on discharge however patient preferred to be discharged home with services. Acute respiratory failure with hypoxia likely multifactorial: CHF in setting of COPD/asthma Acute on chronic diastolic heart failure Chronic troponin elevation-improved when compared to prior --CXR:Mild CHF suspected. Basilar pneumonia not excluded in the appropriate clinical context. --Venous Doppler: No evidence for DVT of the bilateral lower extremity -- Normal procalcitonin --Last ECHO:09/06/24: LVEF of 60 to 65%, moderate concentric LVH, focal area of akinesis involving the apical inferior wall otherwise normal wall motion, moderately calcified AV, mild valvular , mild MR, mild TR and grade II DD. -Titrate down oxygen as able Monitor volume status, renal function, electrolytes Cardiology consulted Monitor I's and O's, daily weight Fluid restriction May need 2 step prior to discharge Continue Imdur IV diuresis, metoprolol held for now Resume diuretics - furosemide 3/ week as previous dose Currently no indication for defibrillator Held metoprolol due to bradycardia - > now resumed 12.5 mg daily Continue to monitor in PCU Torsades de pointes Prolonged QT Permanent atrial fibrillation Patient had 2 episodes of bradycardia with torsades overnight requiring brief chest compressions. CODE BLUE on 09/28/2024 --ECHO: EF 60 to 65%. Right ventricular cavity size is normal. Right ventricular systolic function is normal. Mild valvular aortic stenosis. Mild mitral and tricuspid regurgitation. Estimated systolic pulmonary pressure 44 mmHg. Mild pulmonary hypertension. --QT prolonging medications sertraline, trazodone discontinued Monitor and replete electrolytes as needed isoproterenol ggt discontinued Appreciate cardiology, critical care input (3) Elevated troponin: Plan: Likely demand ischemia secondary to above (4) Supratherapeutic INR: Plan: No bleeding issues Resolved Monitor INR: 1.7 today Cont. Coumadin , received lovenox as well Monitor and adjust Coumadin dose as needed (5) Chronic atrial fibrillation: Plan: Continue metoprolol Continue Coumadin (6) COPD (chronic obstructive pulmonary disease): Plan: Nebs as needed Would recommend Stiolto or Anoro on discharge, per pulm. Monitor (7) Depression: Plan: Zoloft discontinued due to torsades/QT prolongation (8) Diabetic polyneuropathy: (9) Insulin dependent type 2 diabetes mellitus: Plan: Uncontrolled Hgb A1c 12.2% Hold p.o. medications Has insulin pump at home Continue insulin per protocol Glycemic pharmacy to assist with management. Monitor blood glucose levels (10) HTN (hypertension): Plan: BP stable Monitor (11) Hyperlipidemia: Plan: On statin (12) Coronary artery disease: Plan: Continue ASA, rosuvastatin, metoprolol (13) GERD (gastroesophageal reflux disease): Plan: Continue Pepcid. DVT Px: Coumadin CODE STATUS Full code Disposition PT OT recommends rehab/ snf Admission and Anticipated Discharge Date Admission Date: September 26, 2024 Subjective Patient seen in follow up, CHF, Torsades Sitting up in bed in NAD, says she feels well Denies chest pain, shortness of breath, abd. pain, n/v Saturating well on room air Awaiting placement to snf/rehab Review of Systems Review of Systems: All systems reviewed & are unremarkable except as noted in Subjective Physical Exam Physical Exam: General Appearance:Obese, no apparent distress Head: normocephalic, Atraumatic Eyes: normal inspection, EOMI Neck: supple Respiratory/Chest: decreased breath sounds, No accessory muscle use Cardiovascular: S1, S2, + murmur Abdomen/GI:Soft, Non tender, Bowel sounds present Extremities/Musculoskeletal:normal inspection, Trace edema Neurologic/Psych:AAOX3, grossly no focal neurological deficits Skin: normal color, warm Results & Data Results & Data Vital Signs (Past 12 Hours) Vital Signs Temp Pulse Pulse Resp BP BP Pulse Ox 10/03/24 11:08 10/03/24 11:02 36.8 C 79 18 152/79 H 97 10/03/24 07:16 36.7 C 88 17 155/79 H 95 10/03/24 07:11 88 17 95 10/03/24 03:36 37.0 C 77 18 135/70 93 O2 Del Method 10/03/24 11:08 Room Air 10/03/24 11:02 Room Air 10/03/24 07:16 Room Air 10/03/24 07:11 Room Air 10/03/24 03:36 Room Air Laboratory Results 10/03/24 10/03/24 10/03/24 Range/Units 11:01 07:19 05:58 WBC 7.11 (4.8-10.8) K/ul RBC 3.67 L (4.20-5.40) M/uL Hgb 10.7 L (12.0-16.0) g/dl Hct 32.5 L (37.0-47.0) % MCV 88.6 (80.0-100.0) fL MCH 29.2 (25.0-34.0) pg MCHC 32.9 (32.0-36.0) g/dL RDW Std Deviation 50.8 H (36.4-46.3) fL RDW Coeff of Katrin 15.7 H (11.5-14.5) % Plt Count 153 (130-400) K/uL MPV 11.9 (9.4-12.4) fL PT 17.5 H (9.0-12.0) Seconds INR 1.7 H (0.9-1.1) Sodium 140 (136-145) mmol/L Potassium 4.1 (3.5-5.1) mmol/L Chloride 105 (98-107) mmol/L Carbon Dioxide 29 (21-32) mmol/L Anion Gap 6 (3-11) BUN 21 (6-23) mg/dl Creatinine 0.82 (0.6-1.2) mg/dl Est Cr Clr Drug Dosing 66.6 ml/min eGFR 74.55 BUN/Creatinine Ratio 25.6 H (10-20) Glucose 157 H (70-99(Fasting)) mg/dl POC Glucose 221 H 168 H (70-99) mg/dl Calcium 8.8 (8.6-10.3) mg/dl Phosphorus 3.5 (2.5-4.9) mg/dl Magnesium 2.0 (1.7-2.4) mg/dl 10/02/24 10/02/24 Range/Units 21:31 16:24 WBC (4.8-10.8) K/ul RBC (4.20-5.40) M/uL Hgb (12.0-16.0) g/dl Hct (37.0-47.0) % MCV (80.0-100.0) fL MCH (25.0-34.0) pg MCHC (32.0-36.0) g/dL RDW Std Deviation (36.4-46.3) fL RDW Coeff of Katrin (11.5-14.5) % Plt Count (130-400) K/uL MPV (9.4-12.4) fL PT (9.0-12.0) Seconds INR (0.9-1.1) Sodium (136-145) mmol/L Potassium (3.5-5.1) mmol/L Chloride (98-107) mmol/L Carbon Dioxide (21-32) mmol/L Anion Gap (3-11) BUN (6-23) mg/dl Creatinine (0.6-1.2) mg/dl Est Cr Clr Drug Dosing ml/min eGFR BUN/Creatinine Ratio (10-20) Glucose (70-99(Fasting)) mg/dl POC Glucose 217 H 167 H (70-99) mg/dl Calcium (8.6-10.3) mg/dl Phosphorus (2.5-4.9) mg/dl Magnesium (1.7-2.4) mg/dl Medications Administered Current Inpatient Medications Acetaminophen (Acetaminophen 325 Mg Tab) 650 mg PO Q4H PRN PRN Reason: Pain or Fever Stop: 10/26/24 16:34 Last Admin: 09/28/24 08:13 Dose: 650 mg Aspirin (Aspirin 81 Mg Ectab) 81 mg PO QAM [facility]QUEL Stop: 10/27/24 08:59 Last Admin: 10/03/24 10:35 Dose: 81 mg Budesonide (Budesonide 0.25 Mg/2 Ml Vial (Pulmicort)) 0.25 mg NEB BIDR [facility] Stop: 10/29/24 18:59 Last Admin: 10/03/24 07:11 Dose: 0.25 mg Cyanocobalamin (Cyanocobalamin (B-12) 500 Mcg Tablet) 1,000 mcg PO DAILY RAQUEL Stop: 10/27/24 08:59 Last Admin: 10/03/24 10:35 Dose: 1,000 mcg Dextrose (Dextrose 50% 50 Ml Syringe) 25 - 50 ml IV UD PRN; Protocol PRN Reason: Hypoglycemia Protocol Stop: 10/26/24 16:34 Docusate Sodium (Docusate Sodium 100 Mg Cap) 100 mg PO BID RAQUEL Stop: 10/31/24 10:44 Last Admin: 10/03/24 10:36 Dose: 100 mg Enoxaparin Sodium (Enoxaparin 100 Mg/1ml Syr) 100 mg SQ Q12 [facility] Stop: 11/01/24 09:02 Last Admin: 10/03/24 10:36 Dose: 100 mg Famotidine (Famotidine 40 Mg Tablet) 40 mg PO DAILY [facility]QUEL Stop: 10/27/24 08:59 Last Admin: 10/03/24 10:36 Dose: 40 mg Fluticasone Propionate (Fluticasone Propionate Na Spr 16 Gm Btl) 2 sprays NA QAM [facility]QUEL Stop: 10/27/24 08:59 Last Admin: 10/03/24 10:34 Dose: 2 sprays Formoterol Fumarate (Formoterol 20 Mcg/2 Ml Vial) 20 mcg NEB BIDR [facility]QUEL Stop: 10/29/24 18:59 Last Admin: 10/03/24 07:11 Dose: 20 mcg Furosemide (Furosemide 20 Mg Tab) 20 mg PO QAM [facility]QUEL Stop: 10/30/24 11:59 Last Admin: 10/03/24 10:36 Dose: 20 mg Glucagon (Glucagon For Inj 1 Mg Vial) 1 mg SQ UD PRN; Protocol PRN Reason: Hypoglycemia Protocol Stop: 10/26/24 16:34 Glucose (Glucose 40% Gel 15 Gm Tube) 15 - 30 gm PO UD PRN; Protocol PRN Reason: Hypoglycemia Protocol Stop: 10/26/24 16:34 Glucose (Glucose 10 Tab/Tube) 4 - 8 tab PO UD PRN; Protocol PRN Reason: Hypoglycemia Protocol Stop: 10/26/24 16:34 Insulin Aspart (Insulin Aspart Per Unit Charge) 0 units SC ACHS [facility] Stop: 10/29/24 00:00 Last Admin: 10/03/24 12:14 Dose: 22 units Insulin Glargine (Lantus Per Unit Charge) [facility]: 10/30/24 08:59 Last Admin: 10/03/24 07:52 Dose: 80 units Insulin Glargine (Lantus Per Unit Charge) 0 units SC HS [facility]; Protocol Stop: 11/02/24 20:59 Isosorbide Mononitrate (Isosorbide Nolan Extended Rel 60 Mg Tabcr) 60 [facility] [place] Stop: 10/27/24 08:59 Last Admin: 10/03/24 10:35 Dose: 60 mg Magnesium Hydroxide (Magnesium Hydroxide Susp 30 Ml Udc) 30 ml PO Q12H PRN PRN Reason: Constipation Stop: 10/26/24 16:34 Magnesium Oxide (Magnesium Oxide 400 Mg Tab) 400 [facility] [place] Stop: 10/31/24 11:14 Last Admin: 10/03/24 10:35 Dose: 400 mg Metoprolol Succinate (Metoprolol Succ 25mg Ext Rel Tab) 12.5 [facility] [place] Stop: 10/31/24 11:14 Last Admin: 10/03/24 10:35 Dose: 12.5 mg Miscellaneous (Carbohydrates For Hypoglycemia ) 15 - 30 gm PO UD PRN PRN Reason: Hypoglycemia Protocol Stop: 10/26/24 16:34 Miscellaneous Information (Pharmacy Glycemic Mgmt Consult) 1 each N/A UD PRN PRN Reason: Consult Stop: 10/26/24 16:34 Multivitamins (Multivitamin Tab) [facility] Stop: 10/27/24 08:59 Last Admin: 10/03/24 10:35 Dose: 1 tab Polyethylene Glycol (Polyethylene (Miralax) 17 Gm Pack) 17 gm PO DAILY [facility] Stop: 10/26/24 16:34 Last Admin: 10/03/24 10:37 Dose: 17 gm Rosuvastatin Calcium (Rosuvastatin Calcium 20 Mg Tab) 20 [facility] Stop: 10/27/24 08:59 Last Admin: 10/03/24 10:34 Dose: 20 mg Vitamin D (Cholecalciferol 25 Mcg (1000 Units) Tab) 25 mcg PO QAM [facility] Stop: 10/27/24 08:59 Last Admin: 10/03/24 10:35 Dose: 25 mcg Warfarin Sodium (Warfarin Sod 5 Mg Tab) 5 mg PO DAILY@1600 [facility]QU[facility] Stop: 10/30/24 15:59 Last Admin: 10/02/24 15:55 Dose: 5 mg (6) COPD (chronic obstructive pulmonary disease) COPD type: unspecified COPD Qualified Code(s): J44.9 - Chronic obstructive pulmonary disease, unspecified (7) Depression Depression Type: unspecified Qualified Code(s): F32.A - Depression, unspecified (8) Diabetic polyneuropathy Diabetes mellitus type: type 2 Qualified Code(s): E11.42 - Type 2 diabetes mellitus with diabetic polyneuropathy (10) HTN (hypertension) Hypertension type: unspecified Qualified Code(s): I10 - Essential (primary) hypertension (11) Hyperlipidemia Hyperlipidemia type: unspecified Qualified Code(s): E78.5 - Hyperlipidemia, unspecified (12) Coronary artery disease Associated angina: unspecified whether angina present Coronary Disease- Associated Artery/Lesion type: unspecified vessel or lesion type [place] vs. transplanted heart: [place] heart Qualified Code(s): I25.10 - Atherosclerotic heart disease of [place] coronary artery without angina pectoris (13) GERD (gastroesophageal reflux disease) Esophagitis presence: esophagitis presence not specified Qualified Code(s): K21.9 - Gastro-esophageal reflux disease without esophagitis
[2024-10-03] MEDS: LANTUS PER UNIT CHARGE SC SCH (20:59)
--- NOTE | 2024-10-03 23:12 | Electrocardiogram Report ---
Test Reason : Blood Pressure : */* mmHG Vent. Rate : 71 BPM Atrial Rate : 71 BPM P-R Int : 138 ms QRS Dur : 102 ms QT Int : 474 ms P-R-T Axes : 24 43 20 degrees QTcB Int : 515 ms Normal sinus rhythm Nonspecific ST abnormality Prolonged QT Abnormal ECG When compared with ECG of 29-Sep-2024 09:54, Premature atrial complexes are no longer Present Confirmed by Omar Meeyrs ([id number]) on 10/03/2024 11:12:25 PM Referred By: REFERRED SELF Confirmed By: Omar Meyers
--- NOTE | 2024-10-03 23:13 | Electrocardiogram Report ---
Test Reason : Blood Pressure : */* mmHG Vent. Rate : 79 BPM Atrial Rate : 79 BPM P-R Int : 138 ms QRS Dur : 90 ms QT Int : 436 ms P-R-T Axes : 91 33 17 degrees QTcB Int : 499 ms Normal sinus rhythm Prolonged QT Abnormal ECG When compared with ECG of 01-Oct-2024 05:53, No significant change was found Confirmed by Oamr Meyers ([id number]) on 10/03/2024 11:12:45 PM Referred By: REFERRED SELF Confirmed By: Omar Meyers
[2024-10-04 06:34] LABS: Hematocrit (blood only) 32.7 % (37.0-47.0); Hemoglobin 10.7 g/dl (12.0-16.0); Mean Corpuscular Hemoglobin 29.2 pg (25.0-34.0); Mean Corpuscular Hgb Conc 32.7 g/dL (32.0-36.0); Mean Corpuscular Volume 89.1 fL (80.0-100.0); Mean Platelet Volume 11.7 fL (9.4-12.4); Platelet Count 154 K/uL (130-400); RDW Coefficient of Variation 15.5 % (11.5-14.5); RDW Standard Deviation 50.9 fL (36.4-46.3); Red Blood Count 3.67 M/uL (4.20-5.40); White Blood Count 6.33 K/ul (4.8-10.8)
[2024-10-04 06:43] LABS: BUN Creatinine Ratio 22.8 (10-20); Calcium 8.7 mg/dl (8.6-10.3); Creatinine Clr Calc Pharmacy 59.8 ml/min; Phosphorus 3.4 mg/dl (2.5-4.9); Potassium 4.3 mmol/L (3.5-5.1)
[2024-10-04 07:05] LABS: INR 1.9 (0.9-1.1); Prothrombin Time 19.2 Seconds (9.0-12.0)
--- NOTE | 2024-10-04 13:09 | Hospitalist Progress Note ---
Date of Service October 04, 2024 Assessment & Plan (1) Acute hypoxic respiratory failure: (2) Acute on chronic diastolic heart failure: Plan: 74y/o F w/ insulin-dependent DM type II, diabetic polyneuropathy, PAD, COPD, asthma, chronic A-fib anticoagulated on warfarin, chronic diastolic HF, CAD, history of DVT, vitamin B12 deficiency, GERD without esophagitis, senile osteoporosis, cervical spinal stenosis, prior tobacco use and depression who presented to the ED via EMS with complaint of SOB. Patient been doing well at home following discharge on 09/11/24 up until last evening when she started to develop SOB - notably worse with exertion. Was found to be saturating in the low 80s SpO2 on RA by EMS. Had to initially be placed on 10L nonrebreather en route to ED. Now de-escalated to 4L NC at time of evaluation and saturating in the mid 90s SpO2. Patient recently admitted under our service from 09/05/24 to 09/11/24. She was managed for the following: acute COPD exacerbation with sepsis 2/2 superimposed bronchitis ISO RSV infection, DKA and acute on chronic diastolic HF. Successfully weaned off of supplemental O2 prior to discharge. PT/OT had recommended rehab on discharge however patient preferred to be discharged home with services. Acute respiratory failure with hypoxia likely multifactorial: CHF in setting of COPD/asthma Acute on chronic diastolic heart failure Chronic troponin elevation-improved when compared to prior --CXR:Mild CHF suspected. Basilar pneumonia not excluded in the appropriate clinical context. --Venous Doppler: No evidence for DVT of the bilateral lower extremity -- Normal procalcitonin --Last ECHO:09/06/24: LVEF of 60 to 65%, moderate concentric LVH, focal area of akinesis involving the apical inferior wall otherwise normal wall motion, moderately calcified AV, mild valvular , mild MR, mild TR and grade II DD. -Titrate down oxygen as able Monitor volume status, renal function, electrolytes Cardiology consulted Monitor I's and O's, daily weight Fluid restriction May need 2 step prior to discharge Continue Imdur IV diuresis, metoprolol held for now Resume diuretics - furosemide 3/ week as previous dose Currently no indication for defibrillator Held metoprolol due to bradycardia - > now resumed 12.5 mg daily Continue to monitor in PCU Torsades de pointes Prolonged QT Permanent atrial fibrillation Patient had 2 episodes of bradycardia with torsades overnight requiring brief chest compressions. CODE BLUE on 09/28/2024 --ECHO: EF 60 to 65%. Right ventricular cavity size is normal. Right ventricular systolic function is normal. Mild valvular aortic stenosis. Mild mitral and tricuspid regurgitation. Estimated systolic pulmonary pressure 44 mmHg. Mild pulmonary hypertension. --QT prolonging medications sertraline, trazodone, lyrica discontinued Monitor and replete electrolytes as needed isoproterenol ggt discontinued Appreciate cardiology, critical care input (3) Elevated troponin: Plan: Likely demand ischemia secondary to above (4) Supratherapeutic INR: Plan: No bleeding issues Resolved Monitor INR: 1.9 today Cont. Coumadin , previously received lovenox as well Monitor and adjust Coumadin dose as needed (5) Chronic atrial fibrillation: Plan: Continue metoprolol Continue Coumadin (6) COPD (chronic obstructive pulmonary disease): Plan: Nebs as needed Would recommend Stiolto or Anoro on discharge, per pulm. Monitor (7) Depression: Plan: Zoloft discontinued due to torsades/QT prolongation (8) Diabetic polyneuropathy: (9) Insulin dependent type 2 diabetes mellitus: Plan: Uncontrolled Hgb A1c 12.2% Hold p.o. medications Has insulin pump at home Continue insulin per protocol Glycemic pharmacy to assist with management. Monitor blood glucose levels (10) HTN (hypertension): Plan: BP stable Monitor (11) Hyperlipidemia: Plan: On statin (12) Coronary artery disease: Plan: Continue ASA, rosuvastatin, metoprolol (13) GERD (gastroesophageal reflux disease): Plan: Continue Pepcid. DVT Px: Coumadin CODE STATUS Full code Disposition PT OT recommends rehab/ snf Admission and Anticipated Discharge Date Admission Date: September 26, 2024 Subjective Patient seen in follow up, CHF, Torsades lying in bed this AM in NAD, says she feels well Denies chest pain, shortness of breath, abd. pain, n/v Saturating well on room air Awaiting placement to snf/rehab Review of Systems Review of Systems: All systems reviewed & are unremarkable except as noted in Subjective Physical Exam Physical Exam: General Appearance:Obese, no apparent distress Head: normocephalic, Atraumatic Eyes: normal inspection, EOMI Neck: supple Respiratory/Chest: decreased breath sounds, No accessory muscle use Cardiovascular: S1, S2, + murmur Abdomen/GI:Soft, Non tender, Bowel sounds present Extremities/Musculoskeletal:normal inspection, Trace edema Neurologic/Psych:AAOX3, grossly no focal neurological deficits Skin: normal color, warm Results & Data Results & Data Vital Signs (Past 12 Hours) Vital Signs Temp Pulse Pulse Resp BP BP Pulse Ox 10/04/24 11:27 36.8 C 84 18 134/74 93 10/04/24 08:00 86 10/04/24 07:24 37.0 C 79 18 163/72 H 94 10/04/24 07:09 77 18 95 10/04/24 04:00 37.0 C 85 18 126/66 94 O2 Del Method 10/04/24 11:27 Room Air 10/04/24 08:00 10/04/24 07:24 Room Air 10/04/24 07:09 Room Air 10/04/24 04:00 Room Air Laboratory Results 10/04/24 10/04/24 10/04/24 Range/Units 11:26 07:25 05:57 WBC 6.33 (4.8-10.8) K/ul RBC 3.67 L (4.20-5.40) M/uL Hgb 10.7 L (12.0-16.0) g/dl Hct 32.7 L (37.0-47.0) % MCV 89.1 (80.0-100.0) fL MCH 29.2 (25.0-34.0) pg MCHC 32.7 (32.0-36.0) g/dL RDW Std Deviation 50.9 H (36.4-46.3) fL RDW Coeff of Katrin 15.5 H (11.5-14.5) % Plt Count 154 (130-400) K/uL MPV 11.7 (9.4-12.4) fL PT 19.2 H (9.0-12.0) Seconds INR 1.9 H (0.9-1.1) Sodium 140 (136-145) mmol/L Potassium 4.3 (3.5-5.1) mmol/L Chloride 106 (98-107) mmol/L Carbon Dioxide 28 (21-32) mmol/L Anion Gap 6 (3-11) BUN 21 (6-23) mg/dl Creatinine 0.92 (0.6-1.2) mg/dl Est Cr Clr Drug Dosing 59.8 ml/min eGFR 64.93 BUN/Creatinine Ratio 22.8 H (10-20) Glucose 170 H (70-99(Fasting)) mg/dl POC Glucose 207 H 177 H (70-99) mg/dl Calcium 8.7 (8.6-10.3) mg/dl Phosphorus 3.4 (2.5-4.9) mg/dl Magnesium 2.0 (1.7-2.4) mg/dl 10/03/24 10/03/24 Range/Units 20:35 15:41 WBC (4.8-10.8) K/ul RBC (4.20-5.40) M/uL Hgb (12.0-16.0) g/dl Hct (37.0-47.0) % MCV (80.0-100.0) fL MCH (25.0-34.0) pg MCHC (32.0-36.0) g/dL RDW Std Deviation (36.4-46.3) fL RDW Coeff of Katrin (11.5-14.5) % Plt Count (130-400) K/uL MPV (9.4-12.4) fL PT (9.0-12.0) Seconds INR (0.9-1.1) Sodium (136-145) mmol/L Potassium (3.5-5.1) mmol/L Chloride (98-107) mmol/L Carbon Dioxide (21-32) mmol/L Anion Gap (3-11) BUN (6-23) mg/dl Creatinine (0.6-1.2) mg/dl Est Cr Clr Drug Dosing ml/min eGFR BUN/Creatinine Ratio (10-20) Glucose (70-99(Fasting)) mg/dl POC Glucose 134 H 169 H (70-99) mg/dl Calcium (8.6-10.3) mg/dl Phosphorus (2.5-4.9) mg/dl Magnesium (1.7-2.4) mg/dl Medications Administered Current Inpatient Medications Acetaminophen (Acetaminophen 325 Mg Tab) 650 mg PO Q4H PRN PRN Reason: Pain or Fever Stop: 10/26/24 16:34 Last Admin: 09/28/24 08:13 Dose: 650 mg Aspirin (Aspirin 81 Mg Ectab) [facility] Stop: 10/27/24 08:59 Last Admin: 10/04/24 08:30 Dose: 81 mg Budesonide (Budesonide 0.25 Mg/2 Ml Vial (Pulmicort)) 0.25 mg NEB BIDR [facility] Stop: 10/29/24 18:59 Last Admin: 10/04/24 07:09 Dose: 0.25 mg Cyanocobalamin (Cyanocobalamin (B-12) 500 Mcg Tablet) 1,000 mcg PO DAILY [facility] Stop: 10/27/24 08:59 Last Admin: 10/04/24 08:29 Dose: 1,000 mcg Dextrose (Dextrose 50% 50 Ml Syringe) 25 - 50 ml IV UD PRN; Protocol PRN Reason: Hypoglycemia Protocol Stop: 10/26/24 16:34 Docusate Sodium (Docusate Sodium 100 Mg Cap) 100 mg PO BID [facility] Stop: 10/31/24 10:44 Last Admin: 10/04/24 10:34 Dose: 100 mg Famotidine (Famotidine 40 Mg Tablet) 40 mg PO DAILY [facility] Stop: 10/27/24 08:59 Last Admin: 10/04/24 08:30 Dose: 40 mg Fluticasone Propionate (Fluticasone Propionate Na Spr 16 Gm Btl) 2 sprays NA [facility] Stop: 10/27/24 08:59 Last Admin: 10/04/24 08:31 Dose: 2 sprays Formoterol Fumarate (Formoterol 20 Mcg/2 Ml Vial) 20 mcg NEB BIDR [facility] Stop: 10/29/24 18:59 Last Admin: 10/04/24 07:09 Dose: 20 mcg Furosemide (Furosemide 20 Mg Tab) 20 mg PO [facility] Stop: 10/30/24 11:59 Last Admin: 10/04/24 08:30 Dose: 20 mg Glucagon (Glucagon For Inj 1 Mg Vial) 1 mg SQ UD PRN; Protocol PRN Reason: Hypoglycemia Protocol Stop: 10/26/24 16:34 Glucose (Glucose 40% Gel 15 Gm Tube) 15 - 30 gm PO UD PRN; Protocol PRN Reason: Hypoglycemia Protocol Stop: 10/26/24 16:34 Glucose (Glucose 10 Tab/Tube) 4 - 8 tab PO UD PRN; Protocol PRN Reason: Hypoglycemia Protocol Stop: 10/26/24 16:34 Insulin Aspart (Insulin Aspart Per Unit Charge) 0 units SC [facility] Stop: 10/29/24 00:00 Last Admin: 10/04/24 11:44 Dose: 20 units Insulin Glargine (Lantus Per Unit Charge) [facility] Stop: 10/30/24 08:59 Last Admin: 10/04/24 08:27 Dose: 80 units Insulin Glargine (Lantus Per Unit Charge) 0 units SC HS [facility]; Protocol Stop: 11/02/24 20:59 Last Admin: 10/03/24 20:59 Dose: Not Given Isosorbide Mononitrate (Isosorbide [place] Extended Rel 60 Mg Tabcr) 60 mg PO [facility] Stop: 10/27/24 08:59 Last Admin: 10/04/24 08:30 Dose: 60 mg Magnesium Hydroxide (Magnesium Hydroxide Susp 30 Ml Udc) 30 ml PO Q12H PRN PRN Reason: Constipation Stop: 10/26/24 16:34 Magnesium Oxide (Magnesium Oxide 400 Mg Tab) 400 mg PO [facility] Stop: 10/31/24 11:14 Last Admin: 10/04/24 08:30 Dose: 400 mg Metoprolol Succinate (Metoprolol Succ 25mg Ext Rel Tab) 12.5 mg PO [facility] Stop: 10/31/24 11:14 Last Admin: 10/04/24 08:29 Dose: 12.5 mg Miscellaneous (Carbohydrates For Hypoglycemia ) 15 - 30 gm PO UD PRN PRN Reason: Hypoglycemia Protocol Stop: 10/26/24 16:34 Miscellaneous Information (Pharmacy Glycemic Mgmt Consult) 1 each N/A UD PRN PRN Reason: Consult Stop: 10/26/24 16:34 Multivitamins (Multivitamin Tab) [facility] Stop: 10/27/24 08:59 Last Admin: 10/04/24 08:30 Dose: 1 tab Polyethylene Glycol (Polyethylene (Miralax) 17 Gm Pack) 17 gm PO DAILY [facility] Stop: 10/26/24 16:34 Last Admin: 10/04/24 10:34 Dose: 17 gm Rosuvastatin Calcium (Rosuvastatin Calcium 20 Mg Tab) [facility] Stop: 10/27/24 08:59 Last Admin: 10/04/24 08:30 Dose: 20 mg Vitamin D (Cholecalciferol 25 Mcg (1000 Units) Tab) 25 mcg PO QA [facility] Stop: 10/27/24 08:59 Last Admin: 10/04/24 08:30 Dose: 25 mcg Warfarin Sodium (Warfarin Sod 5 Mg Tab) 5 mg PO DAILY@1600 [facility] Stop: 10/30/24 15:59 Last Admin: 10/03/24 15:28 Dose: 5 mg (6) COPD (chronic obstructive pulmonary disease) COPD type: unspecified COPD Qualified Code(s): J44.9 - Chronic obstructive pulmonary disease, unspecified (7) Depression Depression Type: unspecified Qualified Code(s): F32.A - Depression, unspecified (8) Diabetic polyneuropathy Diabetes mellitus type: type 2 Qualified Code(s): E11.42 - Type 2 diabetes mellitus with diabetic polyneuropathy (10) HTN (hypertension) Hypertension type: unspecified Qualified Code(s): I10 - Essential (primary) hypertension (11) Hyperlipidemia Hyperlipidemia type: unspecified Qualified Code(s): E78.5 - Hyperlipidemia, unspecified (12) Coronary artery disease Coronary Disease-Associated Artery/Lesion type: unspecified vessel or lesion type [place] vs. transplanted heart: [place] heart Associated angina: unspecified whether angina present Qualified Code(s): I25.10 - Atherosclerotic heart disease of [place] coronary artery without angina pectoris (13) GERD (gastroesophageal reflux disease) Esophagitis presence: esophagitis presence not specified Qualified Code(s): K21.9 - Gastro-esophageal reflux disease without esophagitis
[2024-10-04] MEDS: NITROGLYCERIN SL 0.4 MG/TAB TAB SL STA (23:32)
[2024-10-04] MEDS: NITROGLYCERIN SL 0.4 MG/TAB TAB ONE ×2 (23:34)
[2024-10-05] MEDS: MoRPHine SULFATE 2 MG/ML CARP IV STA ×2 (00:26→23:27)
[2024-10-05 07:50] LABS: Hematocrit (blood only) 33.6 % (37.0-47.0); Hemoglobin 10.8 g/dl (12.0-16.0); Mean Corpuscular Hgb Conc 32.1 g/dL (32.0-36.0); Mean Corpuscular Volume 90.3 fL (80.0-100.0); Mean Platelet Volume 11.3 fL (9.4-12.4); Platelet Count 157 K/uL (130-400); RDW Coefficient of Variation 15.7 % (11.5-14.5); RDW Standard Deviation 51.5 fL (36.4-46.3); Red Blood Count 3.72 M/uL (4.20-5.40); White Blood Count 6.41 K/ul (4.8-10.8)
[2024-10-05 08:01] LABS: BUN Creatinine Ratio 22.5 (10-20); Calcium 9.2 mg/dl (8.6-10.3); Creatinine Clr Calc Pharmacy 62.3 ml/min; Magnesium 2.2 mg/dl (1.7-2.4); Phosphorus 4.1 mg/dl (2.5-4.9); Potassium 4.8 mmol/L (3.5-5.1)
[2024-10-05 08:08] LABS: Troponin I High Sensitivity 19.2 pg/ml (0-14)
[2024-10-05 08:10] LABS: INR 2.1 (0.9-1.1); Prothrombin Time 21.8 Seconds (9.0-12.0)
--- NOTE | 2024-10-05 09:59 | XRay Report ---
XR chest 1V portable HISTORY: 74 years-old Female sob acute shortness of breath COMPARISON: 09/28/2024 TECHNIQUE: AP view of the chest FINDINGS: Cardiac silhouette is enlarged. No pneumothorax or large pleural effusion. Mitral annular calcificati ons. Pulmonary vascular congestion. Mild left basilar atelectasis. Bones appear grossly intact. Cervi brenda spinal fusion hardware. IMPRESSION: Cardiomegaly with pulmonary vascular congestion. ACT 112: Negative or not required by law. The above report was generated using voice recognition software. It may contain grammatical, syntax o r spelling errors. Electronically signed by: Rajan Elizabeth M.D. 10/05/2024 9:58 AM
--- NOTE | 2024-10-05 10:52 | Cardiology Progress Note ---
<Statement entered by Pauline Vick, - 10/05/24 15:41> I have reviewed the advanced practitioner's documentation and agree with the plan of care. I accept the responsibility for the associated risk. pt seen in cardiology f/u due to chest pain this morning pt was admited with TdP most likely due to being on multiple QT prolonging agents; she has not had any more episodes and has been stable with QTc improving Pt had some CP this morning; BP was also elevated; CP is reproducible could be due to CPR she got from the TdP She does appear slightly fluid overload; will give a one time dose of IV lasix today; i continue oral lasix 20mg daily upon discharge Continue other cardiac medications Avoid QT prolonging agents she will need follow up upon discharge please reconsult as necessary Date of Service October 05, 2024 Assessment & Plan (1) Chest pain at rest: (2) SOB (shortness of breath): (3) Torsades de pointes: (4) Cardiac arrest: (5) ASCVD (arteriosclerotic cardiovascular disease): (6) HTN (hypertension): Plan Chest discomfort prompting cardiology reevaluation. Discomfort reproducible with palpation of the chest wall. Chart review reveals patient received CPR earlier this admission. Patient reassured. General measures advised. Chest x-ray requested. Increased shortness of breath. Chest x-ray requested. Continue oxygen. One- time dose of IV furosemide and supplemental potassium ordered. Polymorphic ventricular tachycardia in the setting of QT prolongation (torsade the pointes). Medication induced. Avoid QTc prolonging medications. Trazodone, sertraline, and Lyrica discontinued. ASCVD. Catheterization in November 2023 with chronic total occlusion of the RCA with collaterals, 30 to 40% proximal left circumflex, mild luminal irregularities elsewhere; course complicated by atrial fibrillation with a rapid ventricular response with associated hypotension requiring cardioversion. Continue medical management. No Ranolazine (Ranexa) as this may increase QT interval Aortic stenosis. Recommend routine surveillance monitoring. Admission and Anticipated Discharge Date Admission Date: September 26, 2024 Subjective [place] Text messages received earlier this morning. Cardiology reevaluation requested due to patient experiencing chest pain overnight. Patient seen and examined. Chart, medications, telemetry reviewed. Substernal chest discomfort reproducible with palpation of the chest wall. Patient also notes being placed back on oxygen, with some shortness of breath. I's and O's not accurately recorded over the last few days INR 2.1 this morning Telemetry: Sinus in the 70s, with occasional atrial ectopy. Physical Exam Physical Exam: General: A&Ox3. NAD. HENT: Normocephalic. Atraumatic. Eyes: PER. Conjunctiva pink, sclera clear. Neck: No overt JVD Chest: Reproducible chest wall discomfort over the inferior part of the sternum Heart: RRR, 70 bpm. Grade II/V systolic murmur. No diastolic murmur. No rub. Lungs: Bibasilar Rales. No wheeze. Abdomen: +BS. Soft. Nontender. No masses or organomegaly. Extremities: No significant edema. No cyanosis. Limited neurological examination is without focal deficits. Results & Data Vital Signs (Past 12 Hours) Vital Signs Temp Pulse Pulse Resp BP BP Pulse Ox 10/05/24 07:40 73 10/05/24 07:23 36.6 C 72 18 158/80 H 98 10/05/24 07:07 71 16 92 10/05/24 03:21 36.6 C 65 18 157/76 H 96 10/05/24 00:28 71 18 143/77 H 97 10/04/24 23:45 127/71 10/04/24 23:37 95/64 L 10/04/24 23:37 75 13 112/69 94 10/04/24 23:25 162/78 H O2 Del Method O2 Flow Rate 10/05/24 07:40 10/05/24 07:23 Nasal Cannula 2.0 10/05/24 07:07 Nasal Cannula 2 10/05/24 03:21 Nasal Cannula 2 10/05/24 00:28 Nasal Cannula 2 10/04/24 23:45 10/04/24 23:37 10/04/24 23:37 Nasal Cannula 2 10/04/24 23:25 Laboratory Results Cardiac Enzymes 10/04/24 10/05/24 Range/Units 23:57 07:24 Troponin I High Sens 20.3 H 19.2 H (0-14) pg/ml Coagulation 10/05/24 Range/Units 07:24 PT 21.8 H (9.0-12.0) Seconds CBC 10/05/24 Range/Units 07:24 WBC 6.41 (4.8-10.8) K/ul RBC 3.72 L (4.20-5.40) M/uL Hgb 10.8 L (12.0-16.0) g/dl Hct 33.6 L (37.0-47.0) % Plt Count 157 (130-400) K/uL Comprehensive Metabolic Panel 10/05/24 Range/Units 07:24 Sodium 140 (136-145) mmol/L Potassium 4.8 (3.5-5.1) mmol/L Chloride 106 (98-107) mmol/L Carbon Dioxide 31 (21-32) mmol/L BUN 20 (6-23) mg/dl Creatinine 0.89 (0.6-1.2) mg/dl Glucose 136 H (70-99(Fasting)) mg/dl Calcium 9.2 (8.6-10.3) mg/dl Intake and Output 10/04/24 10/05/24 10/05/24 22:59 06:59 14:59 Intake Total 340 / 540 200 / 540 Balance 340 / 540 200 / 540 Intake: Oral 340 / 540 200 / 540 Other: # Unmeasured Voids 1 Weight 95.2 kg Weight Measurement Method Built in [facility] (6) HTN (hypertension) Hypertension type: unspecified Qualified Code(s): I10 - Essential (primary) hypertension
--- NOTE | 2024-10-05 11:34 | Hospitalist Progress Note ---
Date of Service October 05, 2024 Assessment & Plan (1) Acute hypoxic respiratory failure: (2) Acute on chronic diastolic heart failure: Plan: 74y/o F w/ insulin-dependent DM type II, diabetic polyneuropathy, PAD, COPD, asthma, chronic A-fib anticoagulated on warfarin, chronic diastolic HF, CAD, history of DVT, vitamin B12 deficiency, GERD without esophagitis, senile osteoporosis, cervical spinal stenosis, prior tobacco use and depression who presented to the ED via EMS with complaint of SOB. Patient been doing well at home following discharge on 09/11/24 up until last evening when she started to develop SOB - notably worse with exertion. Was found to be saturating in the low 80s SpO2 on RA by EMS. Had to initially be placed on 10L nonrebreather en route to ED. Now de-escalated to 4L NC at time of evaluation and saturating in the mid 90s SpO2. Patient recently admitted under our service from 09/05/24 to 09/11/24. She was managed for the following: acute COPD exacerbation with sepsis 2/2 superimposed bronchitis ISO RSV infection, DKA and acute on chronic diastolic HF. Successfully weaned off of supplemental O2 prior to discharge. PT/OT had recommended rehab on discharge however patient preferred to be discharged home with services. Acute respiratory failure with hypoxia likely multifactorial: CHF in setting of COPD/asthma Acute on chronic diastolic heart failure Chronic troponin elevation-improved when compared to prior --CXR:Mild CHF suspected. Basilar pneumonia not excluded in the appropriate clinical context. --Venous Doppler: No evidence for DVT of the bilateral lower extremity -- Normal procalcitonin --Last ECHO:09/06/24: LVEF of 60 to 65%, moderate concentric LVH, focal area of akinesis involving the apical inferior wall otherwise normal wall motion, moderately calcified AV, mild valvular , mild MR, mild TR and grade II DD. -Titrate down oxygen as able Monitor volume status, renal function, electrolytes Cardiology consulted Monitor I's and O's, daily weight Fluid restriction May need 2 step prior to discharge Continue Imdur IV diuresis, metoprolol held for now Resume diuretics - furosemide 3/ week as previous dose Currently no indication for defibrillator Held metoprolol due to bradycardia - > now resumed 12.5 mg daily Continue to monitor in PCU 3/2 - overnight pt reported CP, says it was sharp and resolved. but also reported some shortness of breath, and now on 2l of suppl.O2, feels more tired today discussed w/ cardiology - iv lasix dose given, pt re-assured Torsades de pointes Prolonged QT Permanent atrial fibrillation Patient had 2 episodes of bradycardia with torsades overnight requiring brief chest compressions. CODE BLUE on 09/28/2024 --ECHO: EF 60 to 65%. Right ventricular cavity size is normal. Right ventricular systolic function is normal. Mild valvular aortic stenosis. Mild mitral and tricuspid regurgitation. Estimated systolic pulmonary pressure 44 mmHg. Mild pulmonary hypertension. --QT prolonging medications sertraline, trazodone, lyrica discontinued Monitor and replete electrolytes as needed isoproterenol ggt discontinued Appreciate cardiology, critical care input (3) Elevated troponin: Plan: Likely demand ischemia secondary to above (4) Supratherapeutic INR: Plan: No bleeding issues Resolved Monitor INR: 1.9 today Cont. Coumadin , previously received lovenox as well Monitor and adjust Coumadin dose as needed (5) Chronic atrial fibrillation: Plan: Continue metoprolol Continue Coumadin (6) COPD (chronic obstructive pulmonary disease): Plan: Nebs as needed Would recommend Stiolto or Anoro on discharge, per pulm. Monitor (7) Depression: Plan: Zoloft discontinued due to torsades/QT prolongation (8) Diabetic polyneuropathy: (9) Insulin dependent type 2 diabetes mellitus: Plan: Uncontrolled Hgb A1c 12.2% Hold p.o. medications Has insulin pump at home Continue insulin per protocol Glycemic pharmacy to assist with management. Monitor blood glucose levels (10) HTN (hypertension): Plan: BP stable Monitor (11) Hyperlipidemia: Plan: On statin (12) Coronary artery disease: Plan: Continue ASA, rosuvastatin, metoprolol (13) GERD (gastroesophageal reflux disease): Plan: Continue Pepcid. DVT Px: Coumadin CODE STATUS Full code Disposition PT OT recommends rehab/ snf Admission and Anticipated Discharge Date Admission Date: September 26, 2024 Subjective Patient seen in follow up, CHF, Torsades lying in bed this AM in NAD overnight reported CP, ecg obtained currently denies shortness of breath, abd. pain, n/v on 2L of suppl. O2 Awaiting placement to snf/rehab Review of Systems Review of Systems: All systems reviewed & are unremarkable except as noted in Subjective Physical Exam Physical Exam: General Appearance:Obese, no apparent distress Head: normocephalic, Atraumatic Eyes: normal inspection, EOMI Neck: supple Respiratory/Chest: decreased breath sounds, No accessory muscle use Cardiovascular: S1, S2, + murmur Abdomen/GI:Soft, Non tender, Bowel sounds present Extremities/Musculoskeletal:normal inspection, Trace edema Neurologic/Psych:AAOX3, grossly no focal neurological deficits Skin: normal color, warm Results & Data Results & Data Vital Signs (Past 12 Hours) Vital Signs Temp Pulse Pulse Resp BP BP Pulse Ox 10/05/24 11:13 36.4 C L 72 18 125/67 96 10/05/24 07:40 73 10/05/24 07:23 36.6 C 72 18 158/80 H 98 10/05/24 07:07 71 16 92 10/05/24 03:21 36.6 C 65 18 157/76 H 96 10/05/24 00:28 71 18 143/77 H 97 10/04/24 23:45 127/71 10/04/24 23:37 95/64 L 10/04/24 23:37 75 13 112/69 94 O2 Del Method O2 Flow Rate 10/05/24 11:13 Nasal Cannula 2.0 10/05/24 07:40 10/05/24 07:23 Nasal Cannula 2.0 10/05/24 07:07 Nasal Cannula 2 10/05/24 03:21 Nasal Cannula 2 10/05/24 00:28 Nasal Cannula 2 10/04/24 23:45 10/04/24 23:37 10/04/24 23:37 Nasal Cannula 2 Laboratory Results 10/05/24 10/05/24 10/05/24 Range/Units 11:14 07:24 07:22 WBC 6.41 (4.8-10.8) K/ul RBC 3.72 L (4.20-5.40) M/uL Hgb 10.8 L (12.0-16.0) g/dl Hct 33.6 L (37.0-47.0) % MCV 90.3 (80.0-100.0) fL MCH 29.0 (25.0-34.0) pg MCHC 32.1 (32.0-36.0) g/dL RDW Std Deviation 51.5 H (36.4-46.3) fL RDW Coeff of Katrin 15.7 H (11.5-14.5) % Plt Count 157 (130-400) K/uL MPV 11.3 (9.4-12.4) fL PT 21.8 H (9.0-12.0) Seconds INR 2.1 H (0.9-1.1) Sodium 140 (136-145) mmol/L Potassium 4.8 (3.5-5.1) mmol/L Chloride 106 (98-107) mmol/L Carbon Dioxide 31 (21-32) mmol/L Anion Gap 3 (3-11) BUN 20 (6-23) mg/dl Creatinine 0.89 (0.6-1.2) mg/dl Est Cr Clr Drug Dosing 62.3 ml/min eGFR 67.57 BUN/Creatinine Ratio 22.5 H (10-20) Glucose 136 H (70-99(Fasting)) mg/dl POC Glucose 220 H 133 H (70-99) mg/dl Calcium 9.2 (8.6-10.3) mg/dl Phosphorus 4.1 (2.5-4.9) mg/dl Magnesium 2.2 (1.7-2.4) mg/dl Troponin I High Sens 19.2 H (0-14) pg/ml 10/04/24 10/04/24 10/04/24 Range/Units 23:57 20:19 16:12 WBC (4.8-10.8) K/ul RBC (4.20-5.40) M/uL Hgb (12.0-16.0) g/dl Hct (37.0-47.0) % MCV (80.0-100.0) fL MCH (25.0-34.0) pg MCHC (32.0-36.0) g/dL RDW Std Deviation (36.4-46.3) fL RDW Coeff of Katrin (11.5-14.5) % Plt Count (130-400) K/uL MPV (9.4-12.4) fL PT (9.0-12.0) Seconds INR (0.9-1.1) Sodium (136-145) mmol/L Potassium (3.5-5.1) mmol/L Chloride (98-107) mmol/L Carbon Dioxide (21-32) mmol/L Anion Gap (3-11) BUN (6-23) mg/dl Creatinine (0.6-1.2) mg/dl Est Cr Clr Drug Dosing ml/min eGFR BUN/Creatinine Ratio (10-20) Glucose (70-99(Fasting)) mg/dl POC Glucose 189 H 164 H (70-99) mg/dl Calcium (8.6-10.3) mg/dl Phosphorus (2.5-4.9) mg/dl Magnesium (1.7-2.4) mg/dl Troponin I High Sens 20.3 H (0-14) pg/ml Medications Administered Current Inpatient Medications Acetaminophen (Acetaminophen 325 Mg Tab) 650 mg PO Q4H PRN PRN Reason: Pain or Fever Stop: 10/26/24 16:34 Last Admin: 10/04/24 23:30 Dose: 650 mg Aspirin (Aspirin 81 Mg Ectab) 81 mg PO QAM [facility] Stop: 10/27/24 08:59 Last Admin: 10/05/24 09:17 Dose: 81 mg Budesonide (Budesonide 0.25 Mg/2 Ml Vial (Pulmicort)) 0.25 mg NEB BIDR [facility] Stop: 10/29/24 18:59 Last Admin: 10/05/24 07:07 Dose: 0.25 mg Cyanocobalamin (Cyanocobalamin (B-12) 500 Mcg Tablet) 1,000 mcg PO DAILY [facility] Stop: 10/27/24 08:59 Last Admin: 10/05/24 09:17 Dose: 1,000 mcg Dextrose (Dextrose 50% 50 Ml Syringe) 25 - 50 ml IV UD PRN; Protocol PRN Reason: Hypoglycemia Protocol Stop: 10/26/24 16:34 Docusate Sodium (Docusate Sodium 100 Mg Cap) 100 mg PO BID [facility] Stop: 10/31/24 10:44 Last Admin: 10/05/24 09:19 Dose: 100 mg Famotidine (Famotidine 40 Mg Tablet) 40 mg PO DAILY [facility] Stop: 10/27/24 08:59 Last Admin: 10/05/24 09:17 Dose: 40 mg Fluticasone Propionate (Fluticasone Propionate Na Spr 16 Gm Btl) 2 sprays NA QAM [facility] Stop: 10/27/24 08:59 Last Admin: 10/05/24 09:18 Dose: 2 sprays Formoterol Fumarate (Formoterol 20 Mcg/2 Ml Vial) 20 mcg NEB BIDR [facility] Stop: 10/29/24 18:59 Last Admin: 10/05/24 07:07 Dose: 20 mcg Furosemide (Furosemide 20 Mg Tab) 20 mg PO QAM [facility] Stop: 10/30/24 11:59 Last Admin: 10/05/24 09:17 Dose: 20 mg Glucagon (Glucagon For Inj 1 Mg Vial) 1 mg SQ UD PRN; Protocol PRN Reason: Hypoglycemia Protocol Stop: 10/26/24 16:34 Glucose (Glucose 40% Gel 15 Gm Tube) 15 - 30 gm PO UD PRN; Protocol PRN Reason: Hypoglycemia Protocol Stop: 10/26/24 16:34 Glucose (Glucose 10 Tab/Tube) 4 - 8 tab PO UD PRN; Protocol PRN Reason: Hypoglycemia Protocol Stop: 10/26/24 16:34 Insulin Aspart (Insulin Aspart Per Unit Charge) 0 units SC [facility] Stop: 10/29/24 00:00 Last Admin: 10/05/24 08:17 Dose: 17 units Insulin Glargine (Lantus Per Unit Charge) 80 units SQ [facility] Stop: 10/30/24 08:59 Last Admin: 10/05/24 08:17 Dose: 80 units Insulin Glargine (Lantus Per Unit Charge) 0 units SC [facility]; Protocol Stop: 11/02/24 20:59 Last Admin: 10/04/24 20:56 Dose: 10 units Isosorbide Mononitrate (Isosorbide Bureau Extended Rel 60 Mg Tabcr) 60 mg PO [facility] Stop: 10/27/24 08:59 Last Admin: 10/05/24 08:18 Dose: 60 mg Magnesium Hydroxide (Magnesium Hydroxide Susp 30 Ml Udc) 30 ml PO Q12H PRN PRN Reason: Constipation Stop: 10/26/24 16:34 Magnesium Oxide (Magnesium Oxide 400 Mg Tab) 400 mg PO [facility] Stop: 10/31/24 11:14 Last Admin: 10/05/24 09:17 Dose: 400 mg Metoprolol Succinate (Metoprolol Succ 25mg Ext Rel Tab) 12.5 mg PO [facility] Stop: 10/31/24 11:14 Last Admin: 10/05/24 09:18 Dose: 12.5 mg Miscellaneous (Carbohydrates For Hypoglycemia ) 15 - 30 gm PO UD PRN PRN Reason: Hypoglycemia Protocol Stop: 10/26/24 16:34 Miscellaneous Information (Pharmacy Glycemic Mgmt Consult) 1 each N/A UD PRN PRN Reason: Consult Stop: 10/26/24 16:34 Multivitamins (Multivitamin Tab) 1 tab PO QAM [facility] Stop: 10/27/24 08:59 Last Admin: 10/05/24 09:17 Dose: 1 tab Polyethylene Glycol (Polyethylene (Miralax) 17 Gm Pack) 17 gm PO DAILY [facility] Stop: 10/26/24 16:34 Last Admin: 10/05/24 09:19 Dose: 17 gm Rosuvastatin Calcium (Rosuvastatin Calcium 20 Mg Tab) 20 mg PO QAM [facility] Stop: 10/27/24 08:59 Last Admin: 10/05/24 09:17 Dose: 20 mg Vitamin D (Cholecalciferol 25 Mcg (1000 Units) Tab) 25 mcg PO QAM [facility] Stop: 10/27/24 08:59 Last Admin: 10/05/24 09:17 Dose: 25 mcg Warfarin Sodium (Warfarin Sod 5 Mg Tab) 5 mg PO DAILY@1600 [facility] Stop: 10/30/24 15:59 Last Admin: 10/04/24 17:08 Dose: 5 mg (6) COPD (chronic obstructive pulmonary disease) COPD type: unspecified COPD Qualified Code(s): J44.9 - Chronic obstructive pulmonary disease, unspecified (7) Depression Depression Type: unspecified Qualified Code(s): F32.A - Depression, unspecified (8) Diabetic polyneuropathy Diabetes mellitus type: type 2 Qualified Code(s): E11.42 - Type 2 diabetes mellitus with diabetic polyneuropathy (10) HTN (hypertension) Hypertension type: unspecified Qualified Code(s): I10 - Essential (primary) hypertension (11) Hyperlipidemia Hyperlipidemia type: unspecified Qualified Code(s): E78.5 - Hyperlipidemia, unspecified (12) Coronary artery disease Associated angina: unspecified whether angina present Coronary Disease- Associated Artery/Lesion type: unspecified vessel or lesion type [place] vs. transplanted heart: [place] heart Qualified Code(s): I25.10 - Atherosclerotic heart disease of [place] coronary artery without angina pectoris (13) GERD (gastroesophageal reflux disease) Esophagitis presence: esophagitis presence not specified Qualified Code(s): K21.9 - Gastro-esophageal reflux disease without esophagitis
[2024-10-05] MEDS: POTASSIUM CHLORIDE 10 MEQ TABCR PO ONE (13:56)
[2024-10-05] MEDS: FUROSEMIDE INJ 20 MG/2 ML VIAL IV ONE (13:56)
[2024-10-05] MEDS: MoRPHine SULFATE 2 MG/ML CARP ONE (23:26)
[2024-10-06 08:47] LABS: INR 2.3 (0.9-1.1); Prothrombin Time 23.1 Seconds (9.0-12.0)
--- NOTE | 2024-10-06 09:23 | Pharmacy Report ---
Pharmacy Glycemic Short Note 2 - Date of Service October 06, 2024 - Glycemic Short BSG Results (Last 24 hours): 10/05/24 10/05/24 10/05/24 11:14 16:27 20:47 POC Glucose 220 H 207 H 137 H 10/06/24 07:18 POC Glucose 181 H OUTPATIENT ANTIDIABETIC REGIMEN: * A1c 12.2% 09/06/24 Metformin 1000mg BID Ozempic 2mg weekly (Sundays) Aspart/Novolog via Medtronic [id number] insulin pump Basal: 6355-1806: 8 units/hr 9198-1703: 8 units/hr 5750-3858: 8.9 units/hr Total: 202.8 units Bolus: ISF: 10 ICR: 5 but uses preset dosing of 25 units with breakfast, 25 + 20 units with lunch, 25 + 15 units with supper BG Target: 100-140 Estimated TDD: ~325-350 units Actual TDD: 210.475 units Basal: 155.6 units (74%) Bolus: 54.8 units (26%) ASSESSMENT: 10/06: * Received 128 units of insulin yesterday, 80 of which were basal. * Fasting BSG improves when pt receives 10 units HS, will change parameters to ensure patient receives as long as HS BSG 120mg/dl or greater. * Continue NovoLog parameters at this time, better controlled with CR = 3. 10/03: * Received 122 units of insulin yesterday, 80 of which were basal. BSGs were: [phone] mg/dL. * Fasting BSG remains above goal at 168 mg/dL this AM. Will continue with 80 units of basal in AM but add a scaled basal dose at bedtime to help with fasting hyperglycemia. * Tightened carb ratio again this morning due to postprandial elevations. 10/02: * Graciela received 118 units of insulin yesterday, 80 of which were basal. Postprandial BSGs were elevated yesterday: [phone] mg/dL. * Fasting BSG today is 161 mg/dL. This is an increase from the previous days but still near goal range. Patient has tolerated current basal dose well so will not make any changes to basal as of now. * Given postprandial BSG elevations, will tighten carb ratio this morning. Also, will tighten upper end of goal range from 160 to 140 to help with postprandial control. 09/29: * Patient with recent admission, readmitted for CHF exacerbation. Transferred to ICU last night for episode of Torsades, was requiring isoproterenol for bradycardia. * Patient has high insulin requirements outpatient with basal rates 8-8.9 units/hr depending on time of day. Required less with recent admission. * BSGs in the 300s initially with downward trend. Given 80 units of basal and trended downward with start of insulin infusion yesterday which has since been discontinued. BSG 123 mg/dL this morning, will continue with 80 units of basal for now * Patient was NPO and now ordered diet with lunch. Continue with current novolog parameters, consider tightening carb ratio if needed PLAN FOR INPATIENT GLYCEMIC CONTROL: * Hold outpatient diabetes medications * Basal insulin * Lantus 80 units SC daily * Lantus 0-10 units SC HS (0 units for BSG < 120, 10 units for BSG 120 or greater) * Bolus insulin * NovoLog per scale ACHS or Q6hrs while NPO * Goal Range: Low 110 mg/dL - High 140 mg/dL * Correction Factor: 15 mg/dL/unit * Nutritional / Prandial insulin per carb ratio of 1 unit per 3 grams CHO consumed
--- NOTE | 2024-10-06 15:54 | Electrocardiogram Report ---
Test Reason : Blood Pressure : */* mmHG Vent. Rate : 78 BPM Atrial Rate : 78 BPM P-R Int : 148 ms QRS Dur : 94 ms QT Int : 420 ms P-R-T Axes : 88 24 18 degrees QTcB Int : 479 ms Normal sinus rhythm Prolonged QT Abnormal ECG When compared with ECG of 02-Oct-2024 05:18, No significant change was found Confirmed by Laith Duncan ([id number]) on 10/06/2024 3:54:34 PM Referred By: REFERRED SELF Confirmed By: Laith Duncan
--- NOTE | 2024-10-06 16:55 | Hospitalist Progress Note ---
Date of Service October 06, 2024 Assessment & Plan (1) Acute hypoxic respiratory failure: (2) Acute on chronic diastolic heart failure: Plan: 74y/o F w/ insulin-dependent DM type II, diabetic polyneuropathy, PAD, COPD, asthma, chronic A-fib anticoagulated on warfarin, chronic diastolic HF, CAD, history of DVT, vitamin B12 deficiency, GERD without esophagitis, senile osteoporosis, cervical spinal stenosis, prior tobacco use and depression who presented to the ED via EMS with complaint of SOB. Patient been doing well at home following discharge on 09/11/24 up until last evening when she started to develop SOB - notably worse with exertion. Was found to be saturating in the low 80s SpO2 on RA by EMS. Had to initially be placed on 10L nonrebreather en route to ED. Now de-escalated to 4L NC at time of evaluation and saturating in the mid 90s SpO2. Patient recently admitted under our service from 09/05/24 to 09/11/24. She was managed for the following: acute COPD exacerbation with sepsis 2/2 superimposed bronchitis ISO RSV infection, DKA and acute on chronic diastolic HF. Successfully weaned off of supplemental O2 prior to discharge. PT/OT had recommended rehab on discharge however patient preferred to be discharged home with services. Acute respiratory failure with hypoxia likely multifactorial: CHF in setting of COPD/asthma Acute on chronic diastolic heart failure Chronic troponin elevation-improved when compared to prior --CXR:Mild CHF suspected. Basilar pneumonia not excluded in the appropriate clinical context. --Venous Doppler: No evidence for DVT of the bilateral lower extremity -- Normal procalcitonin --Last ECHO:09/06/24: LVEF of 60 to 65%, moderate concentric LVH, focal area of akinesis involving the apical inferior wall otherwise normal wall motion, moderately calcified AV, mild valvular , mild MR, mild TR and grade II DD. -Titrate down oxygen as able Monitor volume status, renal function, electrolytes Cardiology consulted Monitor I's and O's, daily weight Fluid restriction May need 2 step prior to discharge Continue Imdur IV diuresis, metoprolol held for now Resume diuretics - furosemide 3/ week as previous dose Currently no indication for defibrillator Held metoprolol due to bradycardia - > now resumed 12.5 mg daily Continue to monitor in PCU 3/2 - overnight pt reported CP, says it was sharp and resolved. but also reported some shortness of breath, and now on 2l of suppl.O2, feels more tired today discussed w/ cardiology - iv lasix dose given, pt re-assured Torsades de pointes Prolonged QT Permanent atrial fibrillation Patient had 2 episodes of bradycardia with torsades overnight requiring brief chest compressions. CODE BLUE on 09/28/2024 --ECHO: EF 60 to 65%. Right ventricular cavity size is normal. Right ventricular systolic function is normal. Mild valvular aortic stenosis. Mild mitral and tricuspid regurgitation. Estimated systolic pulmonary pressure 44 mmHg. Mild pulmonary hypertension. --QT prolonging medications sertraline, trazodone, lyrica discontinued Monitor and replete electrolytes as needed isoproterenol ggt discontinued Appreciate cardiology, critical care input (3) Elevated troponin: Plan: Likely demand ischemia secondary to above (4) Supratherapeutic INR: Plan: No bleeding issues Resolved Monitor INR 2.3 today Cont. Coumadin Monitor and adjust Coumadin dose as needed (5) Chronic atrial fibrillation: Plan: Continue metoprolol Continue Coumadin (6) COPD (chronic obstructive pulmonary disease): Plan: Nebs as needed Would recommend Stiolto or Anoro on discharge, per pulm. Monitor (7) Depression: Plan: Zoloft discontinued due to torsades/QT prolongation (8) Diabetic polyneuropathy: (9) Insulin dependent type 2 diabetes mellitus: Plan: Uncontrolled Hgb A1c 12.2% Hold p.o. medications Has insulin pump at home Continue insulin per protocol Glycemic pharmacy to assist with management. Monitor blood glucose levels (10) HTN (hypertension): Plan: BP stable Monitor (11) Hyperlipidemia: Plan: On statin (12) Coronary artery disease: Plan: Continue ASA, rosuvastatin, metoprolol (13) GERD (gastroesophageal reflux disease): Plan: Continue Pepcid. DVT Px: Coumadin CODE STATUS Full code Disposition PT OT recommends rehab/ snf Admission and Anticipated Discharge Date Admission Date: September 26, 2024 Subjective Patient seen in follow up, CHF, Torsades sitting up in chair this AM in NAD overnight reported CP currently denies chest pain, shortness of breath, abd. pain, n/v Feeling well Awaiting placement to snf/rehab Pt's present at the bedside Review of Systems Review of Systems: All systems reviewed & are unremarkable except as noted in Subjective Physical Exam Physical Exam: General Appearance:Obese, no apparent distress Head: normocephalic, Atraumatic Eyes: normal inspection, EOMI Neck: supple Respiratory/Chest: decreased breath sounds, No accessory muscle use Cardiovascular: S1, S2, + murmur Abdomen/GI:Soft, Non tender, Bowel sounds present Extremities/Musculoskeletal:normal inspection, Trace edema Neurologic/Psych:AAOX3, grossly no focal neurological deficits Skin: normal color, warm Results & Data Results & Data Vital Signs (Past 12 Hours) Vital Signs Temp Pulse Pulse Resp BP Pulse Ox O2 Del Method 10/06/24 15:44 36.6 C 76 18 147/61 H 91 Room Air 10/06/24 14:43 79 10/06/24 12:00 36.5 C 78 18 103/64 93 Room Air 10/06/24 08:00 Nasal Cannula 10/06/24 08:00 70 10/06/24 07:20 36.6 C 69 19 122/72 91 Room Air 10/06/24 06:49 74 16 99 Nasal Cannula O2 Flow Rate 10/06/24 15:44 10/06/24 14:43 10/06/24 12:00 10/06/24 08:00 2 10/06/24 08:00 10/06/24 07:20 10/06/24 06:49 2 Laboratory Results 10/06/24 10/06/24 10/06/24 Range/Units 16:13 11:23 08:02 PT 23.1 H (9.0-12.0) Seconds INR 2.3 H (0.9-1.1) POC Glucose 90 220 H (70-99) mg/dl 10/06/24 10/05/24 Range/Units 07:18 20:47 PT (9.0-12.0) Seconds INR (0.9-1.1) POC Glucose 181 H 137 H (70-99) mg/dl Medications Administered Current Inpatient Medications Acetaminophen (Acetaminophen 325 Mg Tab) 650 mg PO Q4H PRN PRN Reason: Pain or Fever Stop: 10/26/24 16:34 Last Admin: 10/05/24 23:12 Dose: 650 mg Aspirin (Aspirin 81 Mg Ectab) [facility] Stop: 10/27/24 08:59 Last Admin: 10/06/24 08:25 Dose: 81 mg Budesonide (Budesonide 0.25 Mg/2 Ml Vial (Pulmicort)) 0.25 mg NEB BIDR [facility] Stop: 10/29/24 18:59 Last Admin: 10/06/24 06:49 Dose: 0.25 mg Cyanocobalamin (Cyanocobalamin (B-12) 500 Mcg Tablet) 1,000 mcg PO DAILY [facility] Stop: 10/27/24 08:59 Last Admin: 10/06/24 08:25 Dose: 1,000 mcg Dextrose (Dextrose 50% 50 Ml Syringe) 25 - 50 ml IV UD PRN; Protocol PRN Reason: Hypoglycemia Protocol Stop: 10/26/24 16:34 Docusate Sodium (Docusate Sodium 100 Mg Cap) 100 mg PO BID [facility] Stop: 10/31/24 10:44 Last Admin: 10/06/24 08:30 Dose: 100 mg Famotidine (Famotidine 40 Mg Tablet) 40 mg PO DAILY [facility] Stop: 10/27/24 08:59 Last Admin: 10/06/24 08:25 Dose: 40 mg Fluticasone Propionate (Fluticasone Propionate Na Spr 16 Gm Btl) 2 sprays [facility] Stop: 10/27/24 08:59 Last Admin: 10/06/24 08:26 Dose: 2 sprays Formoterol Fumarate (Formoterol 20 Mcg/2 Ml Vial) 20 mcg NEB BIDR [facility] Stop: 10/29/24 18:59 Last Admin: 10/06/24 06:49 Dose: 20 mcg Furosemide (Furosemide 20 Mg Tab) 20 mg PO QAM [facility] Stop: 10/30/24 11:59 Last Admin: 10/06/24 08:25 Dose: 20 mg Glucagon (Glucagon For Inj 1 Mg Vial) 1 mg SQ UD PRN; Protocol PRN Reason: Hypoglycemia Protocol Stop: 10/26/24 16:34 Glucose (Glucose 40% Gel 15 Gm Tube) 15 - 30 gm PO UD PRN; Protocol PRN Reason: Hypoglycemia Protocol Stop: 10/26/24 16:34 Glucose (Glucose 10 Tab/Tube) 4 - 8 tab PO UD PRN; Protocol PRN Reason: Hypoglycemia Protocol Stop: 10/26/24 16:34 Insulin Aspart (Insulin Aspart Per Unit Charge) 0 units SC ACHS [facility] Stop: 10/29/24 00:00 Last Admin: 10/06/24 16:33 Dose: 11 units Insulin Glargine (Lantus Per Unit Charge) 80 units SQ [facility] Stop: 10/30/24 08:59 Last Admin: 10/06/24 08:20 Dose: 80 units Insulin Glargine (Lantus Per Unit Charge) 0 units SC [facility]; Protocol Stop: 11/02/24 20:59 Last Admin: 10/05/24 20:51 Dose: Not Given Isosorbide Mononitrate (Isosorbide [place] Extended Rel 60 Mg Tabcr) 60 mg PO [facility] Stop: 10/27/24 08:59 Last Admin: 10/06/24 08:25 Dose: 60 mg Magnesium Hydroxide (Magnesium Hydroxide Susp 30 Ml Udc) 30 ml PO Q12H PRN PRN Reason: Constipation Stop: 10/26/24 16:34 Magnesium Oxide (Magnesium Oxide 400 Mg Tab) 400 mg PO [facility] Stop: 10/31/24 11:14 Last Admin: 10/06/24 08:25 Dose: 400 mg Metoprolol Succinate (Metoprolol Succ 25mg Ext Rel Tab) 12.5 mg PO [facility] Stop: 10/31/24 11:14 Last Admin: 10/06/24 08:25 Dose: 12.5 mg Miscellaneous (Carbohydrates For Hypoglycemia ) 15 - 30 gm PO UD PRN PRN Reason: Hypoglycemia Protocol Stop: 10/26/24 16:34 Miscellaneous Information (Pharmacy Glycemic Mgmt Consult) 1 each N/A UD PRN PRN Reason: Consult Stop: 10/26/24 16:34 Multivitamins (Multivitamin Tab) 1 tab PO [facility] Stop: 10/27/24 08:59 Last Admin: 10/06/24 08:25 Dose: 1 tab Polyethylene Glycol (Polyethylene (Miralax) 17 Gm Pack) 17 gm PO DAILY [facility] Stop: 10/26/24 16:34 Last Admin: 10/06/24 08:30 Dose: 17 gm Rosuvastatin Calcium (Rosuvastatin Calcium 20 Mg Tab) 20 mg PO [facility] Stop: 10/27/24 08:59 Last Admin: 10/06/24 08:25 Dose: 20 mg Vitamin D (Cholecalciferol 25 Mcg (1000 Units) Tab) 25 mcg PO [facility] Stop: 10/27/24 08:59 Last Admin: 10/06/24 08:25 Dose: 25 mcg Warfarin Sodium (Warfarin Sod 5 Mg Tab) 5 mg PO DAILY@1600 [facility] Stop: 10/30/24 15:59 Last Admin: 10/06/24 16:28 Dose: 5 mg (6) COPD (chronic obstructive pulmonary disease) COPD type: unspecified COPD Qualified Code(s): J44.9 - Chronic obstructive pulmonary disease, unspecified (7) Depression Depression Type: unspecified Qualified Code(s): F32.A - Depression, unspecified (8) Diabetic polyneuropathy Diabetes mellitus type: type 2 Qualified Code(s): E11.42 - Type 2 diabetes mellitus with diabetic polyneuropathy (10) HTN (hypertension) Hypertension type: unspecified Qualified Code(s): I10 - Essential (primary) hypertension (11) Hyperlipidemia Hyperlipidemia type: unspecified Qualified Code(s): E78.5 - Hyperlipidemia, unspecified (12) Coronary artery disease Coronary Disease-Associated Artery/Lesion type: unspecified vessel or lesion type [place] vs. transplanted heart: [place] heart Associated angina: unspecified whether angina present Qualified Code(s): I25.10 - Atherosclerotic heart disease of [place] coronary artery without angina pectoris (13) GERD (gastroesophageal reflux disease) Esophagitis presence: esophagitis presence not specified Qualified Code(s): K21.9 - Gastro-esophageal reflux disease without esophagitis
[2024-10-06] MEDS: CARBOHYDRATES FOR HYPOGLYCEMIA PO PRN (20:16)
--- NOTE | 2024-10-07 07:47 | Pharmacy Report ---
Pharmacy Glycemic Short Note 2 - Date of Service October 07, 2024 - Glycemic Short BSG Results (Last 24 hours): 10/06/24 10/06/24 10/06/24 11:23 16:13 20:14 POC Glucose 220 H 90 68 L* 10/06/24 10/07/24 10/07/24 20:38 00:06 07:19 POC Glucose 82 93 115 H OUTPATIENT ANTIDIABETIC REGIMEN: * A1c 12.2% 09/06/24 Metformin 1000mg BID Ozempic 2mg weekly (Sundays) Aspart/Novolog via iPixCeltronic 780G insulin pump Basal: 6773-9632: 8 units/hr 3001-2193: 8 units/hr 4825-1526: 8.9 units/hr Total: 202.8 units Bolus: ISF: 10 ICR: 5 but uses preset dosing of 25 units with breakfast, 25 + 20 units with lunch, 25 + 15 units with supper BG Target: 100-140 Estimated TDD: ~325-350 units Actual TDD: 210.475 units Basal: 155.6 units (74%) Bolus: 54.8 units (26%) ASSESSMENT: 10/07: * Received 131 units of insulin yesterday, 80 of which were basal. Patient did have one episode of hypoglycemia (68mg/dl) at bedtime yesterday, likely due to over correcting for the 220mg/dl at lunch time. Loosen CF so that patient will not overcorrect when BSGs are above goal. * No further changes at this time. 10/06: * Received 128 units of insulin yesterday, 80 of which were basal. * Fasting BSG improves when pt receives 10 units HS, will change parameters to ensure patient receives as long as HS BSG 120mg/dl or greater. * Continue NovoLog parameters at this time, better controlled with CR = 3. 10/03: * Received 122 units of insulin yesterday, 80 of which were basal. BSGs were: [phone] mg/dL. * Fasting BSG remains above goal at 168 mg/dL this AM. Will continue with 80 units of basal in AM but add a scaled basal dose at bedtime to help with fasting hyperglycemia. * Tightened carb ratio again this morning due to postprandial elevations. 10/02: * Graciela received 118 units of insulin yesterday, 80 of which were basal. Postprandial BSGs were elevated yesterday: [phone] mg/dL. * Fasting BSG today is 161 mg/dL. This is an increase from the previous days but still near goal range. Patient has tolerated current basal dose well so will not make any changes to basal as of now. * Given postprandial BSG elevations, will tighten carb ratio this morning. Also, will tighten upper end of goal range from 160 to 140 to help with postprandial control. 09/29: * Patient with recent admission, readmitted for CHF exacerbation. Transferred to ICU last night for episode of Torsades, was requiring isoproterenol for bradycardia. * Patient has high insulin requirements outpatient with basal rates 8-8.9 units/hr depending on time of day. Required less with recent admission. * BSGs in the 300s initially with downward trend. Given 80 units of basal and trended downward with start of insulin infusion yesterday which has since been discontinued. BSG 123 mg/dL this morning, will continue with 80 units of basal for now * Patient was NPO and now ordered diet with lunch. Continue with current novolog parameters, consider tightening carb ratio if needed PLAN FOR INPATIENT GLYCEMIC CONTROL: * Hold outpatient diabetes medications * Basal insulin * Lantus 80 units SC daily * Lantus 0-10 units SC HS (0 units for BSG < 120, 10 units for BSG 120 or greater) * Bolus insulin * NovoLog per scale ACHS or Q6hrs while NPO * Goal Range: Low 110 mg/dL - High 140 mg/dL * Correction Factor: 20 mg/dL/unit * Nutritional / Prandial insulin per carb ratio of 1 unit per 3 grams CHO consumed
[2024-10-07 11:03] LABS: INR 2.7 (0.9-1.1); Prothrombin Time 26.6 Seconds (9.0-12.0)
--- NOTE | 2024-10-07 18:12 | Hospitalist Progress Note ---
Date of Service October 07, 2024 Assessment & Plan (1) Acute hypoxic respiratory failure: (2) Acute on chronic diastolic heart failure: Plan: 74y/o F w/ insulin-dependent DM type II, diabetic polyneuropathy, PAD, COPD, asthma, chronic A-fib anticoagulated on warfarin, chronic diastolic HF, CAD, history of DVT, vitamin B12 deficiency, GERD without esophagitis, senile osteoporosis, cervical spinal stenosis, prior tobacco use and depression who presented to the ED via EMS with complaint of SOB. Patient been doing well at home following discharge on 09/11/24 up until last evening when she started to develop SOB - notably worse with exertion. Was found to be saturating in the low 80s SpO2 on RA by EMS. Had to initially be placed on 10L nonrebreather en route to ED. Now de-escalated to 4L NC at time of evaluation and saturating in the mid 90s SpO2. Patient recently admitted under our service from 09/05/24 to 09/11/24. She was managed for the following: acute COPD exacerbation with sepsis 2/2 superimposed bronchitis ISO RSV infection, DKA and acute on chronic diastolic HF. Successfully weaned off of supplemental O2 prior to discharge. PT/OT had recommended rehab on discharge however patient preferred to be discharged home with services. Acute respiratory failure with hypoxia likely multifactorial: CHF in setting of COPD/asthma Acute on chronic diastolic heart failure Chronic troponin elevation-improved when compared to prior --CXR:Mild CHF suspected. Basilar pneumonia not excluded in the appropriate clinical context. --Venous Doppler: No evidence for DVT of the bilateral lower extremity -- Normal procalcitonin --Last ECHO:09/06/24: LVEF of 60 to 65%, moderate concentric LVH, focal area of akinesis involving the apical inferior wall otherwise normal wall motion, moderately calcified AV, mild valvular , mild MR, mild TR and grade II DD. -Titrate down oxygen as able Monitor volume status, renal function, electrolytes Cardiology consulted Monitor I's and O's, daily weight Fluid restriction May need 2 step prior to discharge Continue Imdur IV diuresis, metoprolol held for now Resume diuretics - furosemide 20 daily - discussed w/ cardiology Currently no indication for defibrillator Held metoprolol due to bradycardia - > now resumed 12.5 mg daily Continue to monitor in PCU 3/2 - overnight pt reported CP, says it was sharp and resolved. but also reported some shortness of breath, and now on 2l of suppl.O2, feels more tired today discussed w/ cardiology - iv lasix dose given, pt re-assured 3/4 Pt is feeling well, on RA, eager for DC Torsades de pointes Prolonged QT Permanent atrial fibrillation Patient had 2 episodes of bradycardia with torsades overnight requiring brief chest compressions. CODE BLUE on 09/28/2024 --ECHO: EF 60 to 65%. Right ventricular cavity size is normal. Right ventricular systolic function is normal. Mild valvular aortic stenosis. Mild mitral and tricuspid regurgitation. Estimated systolic pulmonary pressure 44 mmHg. Mild pulmonary hypertension. --QT prolonging medications sertraline, trazodone, lyrica discontinued Monitor and replete electrolytes as needed isoproterenol ggt discontinued Appreciate cardiology, critical care input (3) Elevated troponin: Plan: Likely demand ischemia secondary to above (4) Supratherapeutic INR: Plan: No bleeding issues Resolved Monitor INR 2.7 today Cont. Coumadin Monitor and adjust Coumadin dose as needed (5) Chronic atrial fibrillation: Plan: Continue metoprolol Continue Coumadin (6) COPD (chronic obstructive pulmonary disease): Plan: Nebs as needed Would recommend Stiolto or Anoro on discharge, per pulm. Monitor (7) Depression: Plan: Zoloft discontinued due to torsades/QT prolongation (8) Diabetic polyneuropathy: (9) Insulin dependent type 2 diabetes mellitus: Plan: Uncontrolled Hgb A1c 12.2% Hold p.o. medications Has insulin pump at home Continue insulin per protocol Glycemic pharmacy to assist with management. Monitor blood glucose levels (10) HTN (hypertension): Plan: BP stable Monitor (11) Hyperlipidemia: Plan: On statin (12) Coronary artery disease: Plan: Continue ASA, rosuvastatin, metoprolol (13) GERD (gastroesophageal reflux disease): Plan: Continue Pepcid. DVT Px: Coumadin CODE STATUS Full code Disposition PT OT recommends rehab/ snf Admission and Anticipated Discharge Date Admission Date: September 26, 2024 Subjective Patient seen in follow up, CHF, Torsades sitting up in bed this AM in NAD currently denies chest pain, shortness of breath, abd. pain, n/v Feeling well Awaiting placement to snf/rehab Pt's present at the bedside Review of Systems Review of Systems: All systems reviewed & are unremarkable except as noted in Subjective Physical Exam Physical Exam: General Appearance:Obese, no apparent distress Head: normocephalic, Atraumatic Eyes: normal inspection, EOMI Neck: supple Respiratory/Chest: decreased breath sounds, No accessory muscle use Cardiovascular: S1, S2, + murmur Abdomen/GI:Soft, Non tender, Bowel sounds present Extremities/Musculoskeletal:normal inspection, Trace edema Neurologic/Psych:AAOX3, grossly no focal neurological deficits Skin: normal color, warm Results & Data Results & Data Vital Signs (Past 12 Hours) Vital Signs Temp Pulse Pulse Resp BP Pulse Ox O2 Del Method 10/07/24 15:30 36.6 C 71 18 109/65 95 Room Air 10/07/24 13:58 75 10/07/24 11:30 36.8 C 74 18 145/66 H 96 Room Air 10/07/24 08:00 Room Air 10/07/24 08:00 36.6 C 79 18 129/75 97 Room Air 10/07/24 07:18 74 10/07/24 07:09 89 16 97 Room Air Medications Administered Current Inpatient Medications Acetaminophen (Acetaminophen 325 Mg Tab) 650 mg PO Q4H PRN PRN Reason: Pain or Fever Stop: 10/26/24 16:34 Last Admin: 10/06/24 19:59 Dose: 650 mg Aspirin (Aspirin 81 Mg Ectab) 81 mg PO QAM RAQUEL Stop: 10/27/24 08:59 Last Admin: 10/07/24 08:32 Dose: 81 mg Budesonide (Budesonide 0.25 Mg/2 Ml Vial (Pulmicort)) 0.25 mg NEB BIDR RAQUEL Stop: 10/29/24 18:59 Last Admin: 10/07/24 07:09 Dose: 0.25 mg Cyanocobalamin (Cyanocobalamin (B-12) 500 Mcg Tablet) 1,000 mcg PO DAILY RAQUEL Stop: 10/27/24 08:59 Last Admin: 10/07/24 08:32 Dose: 1,000 mcg Dextrose (Dextrose 50% 50 Ml Syringe) 25 - 50 ml IV UD PRN; Protocol PRN Reason: Hypoglycemia Protocol Stop: 10/26/24 16:34 Docusate Sodium (Docusate Sodium 100 Mg Cap) 100 mg PO BID RAQUEL Stop: 10/31/24 10:44 Last Admin: 10/07/24 08:42 Dose: 100 mg Famotidine (Famotidine 40 Mg Tablet) 40 mg PO DAILY [facility] Stop: 10/27/24 08:59 Last Admin: 10/07/24 08:32 Dose: 40 mg Fluticasone Propionate (Fluticasone Propionate Na Spr 16 Gm Btl) 2 sprays NA QAM [facility] Stop: 10/27/24 08:59 Last Admin: 10/07/24 08:33 Dose: 2 sprays Formoterol Fumarate (Formoterol 20 Mcg/2 Ml Vial) 20 mcg NEB BIDR [facility] Stop: 10/29/24 18:59 Last Admin: 10/07/24 07:09 Dose: 20 mcg Furosemide (Furosemide 20 Mg Tab) 20 mg PO QAM [facility] Stop: 10/30/24 11:59 Last Admin: 10/07/24 08:33 Dose: 20 mg Glucagon (Glucagon For Inj 1 Mg Vial) 1 mg SQ UD PRN; Protocol PRN Reason: Hypoglycemia Protocol Stop: 10/26/24 16:34 Glucose (Glucose 40% Gel 15 Gm Tube) 15 - 30 gm PO UD PRN; Protocol PRN Reason: Hypoglycemia Protocol Stop: 10/26/24 16:34 Glucose (Glucose 10 Tab/Tube) 4 - 8 tab PO UD PRN; Protocol PRN Reason: Hypoglycemia Protocol Stop: 10/26/24 16:34 Insulin Aspart (Insulin Aspart Per Unit Charge) 0 units SC [facility] Stop: 10/29/24 00:00 Last Admin: 10/07/24 16:43 Dose: 13 units Insulin Glargine (Lantus Per Unit Charge) [facility] Stop: 10/30/24 08:59 Last Admin: 10/07/24 08:10 Dose: 80 units Insulin Glargine (Lantus Per Unit Charge) 0 units SC [facility]; Protocol Stop: 11/02/24 20:59 Last Admin: 10/06/24 20:18 Dose: Not Given Isosorbide Mononitrate (Isosorbide [place] Extended Rel 60 Mg Tabcr) 60 mg [facility] Stop: 10/27/24 08:59 Last Admin: 10/07/24 08:32 Dose: 60 mg Magnesium Hydroxide (Magnesium Hydroxide Susp 30 Ml Udc) 30 ml PO Q12H PRN PRN Reason: Constipation Stop: 10/26/24 16:34 Magnesium Oxide (Magnesium Oxide 400 Mg Tab) 400 mg [facility] Stop: 10/31/24 11:14 Last Admin: 10/07/24 08:32 Dose: 400 mg Metoprolol Succinate (Metoprolol Succ 25mg Ext Rel Tab) 12.5 mg PO QAM [facility] Stop: 10/31/24 11:14 Last Admin: 10/07/24 08:33 Dose: 12.5 mg Miscellaneous (Carbohydrates For Hypoglycemia ) 15 - 30 gm PO UD PRN PRN Reason: Hypoglycemia Protocol Stop: 10/26/24 16:34 Last Admin: 10/06/24 20:16 Dose: 15 gm Miscellaneous Information (Pharmacy Glycemic Mgmt Consult) 1 each N/A UD PRN PRN Reason: Consult Stop: 10/26/24 16:34 Multivitamins (Multivitamin Tab) 1 tab [facility] Stop: 10/27/24 08:59 Last Admin: 10/07/24 08:33 Dose: 1 tab Polyethylene Glycol (Polyethylene (Miralax) 17 Gm Pack) 17 gm PO DAILY [facility] Stop: 10/26/24 16:34 Last Admin: 10/07/24 08:42 Dose: 17 gm Rosuvastatin Calcium (Rosuvastatin Calcium 20 Mg Tab) 20 mg [facility] Stop: 10/27/24 08:59 Last Admin: 10/07/24 08:32 Dose: 20 mg Vitamin D (Cholecalciferol 25 Mcg (1000 Units) Tab) 25 mcg PO QAM [facility] Stop: 10/27/24 08:59 Last Admin: 10/07/24 08:32 Dose: 25 mcg Warfarin Sodium (Warfarin Sod 5 Mg Tab) 5 mg PO DAILY@1600 [facility] Stop: 10/30/24 15:59 Last Admin: 10/07/24 16:41 Dose: 5 mg (6) COPD (chronic obstructive pulmonary disease) COPD type: unspecified COPD Qualified Code(s): J44.9 - Chronic obstructive pulmonary disease, unspecified (7) Depression Depression Type: unspecified Qualified Code(s): F32.A - Depression, unspecified (8) Diabetic polyneuropathy Diabetes mellitus type: type 2 Qualified Code(s): E11.42 - Type 2 diabetes mellitus with diabetic polyneuropathy (10) HTN (hypertension) Hypertension type: unspecified Qualified Code(s): I10 - Essential (primary) hypertension (11) Hyperlipidemia Hyperlipidemia type: unspecified Qualified Code(s): E78.5 - Hyperlipidemia, unspecified (12) Coronary artery disease Coronary Disease-Associated Artery/Lesion type: unspecified vessel or lesion type [place] vs. transplanted heart: [place] heart Associated angina: unspecified whether angina present Qualified Code(s): I25.10 - Atherosclerotic heart disease of [place] coronary artery without angina pectoris (13) GERD (gastroesophageal reflux disease) Esophagitis presence: esophagitis presence not specified Qualified Code(s): K21.9 - Gastro-esophageal reflux disease without esophagitis
[2024-10-08 03:14] VITALS: TEMP 97.9
[2024-10-08 07:10] VITALS: RESP 18
[2024-10-08 08:39] LABS: INR 2.9 (0.9-1.1); Prothrombin Time 28.3 Seconds (9.0-12.0)
[2024-10-08 12:02] VITALS: PULSE 80; O2SAT 95
[2024-10-08 13:44] VITALS: BP 127/71
--- NOTE | 2024-10-08 14:18 | Discharge Summary ---
Discharge Summary Date of Service October 08, 2024 Principal Dx & Hospital Course #1 = Principal Diagnosis (1) Acute hypoxic respiratory failure: (2) Acute on chronic diastolic heart failure: (3) Elevated troponin: (4) Supratherapeutic INR: (5) Chronic atrial fibrillation: (6) COPD (chronic obstructive pulmonary disease): (7) Depression: (8) Diabetic polyneuropathy: (9) Insulin dependent type 2 diabetes mellitus: (10) HTN (hypertension): (11) Hyperlipidemia: (12) Coronary artery disease: (13) GERD (gastroesophageal reflux disease): Plan 74y/o F w/ insulin-dependent DM type II, diabetic polyneuropathy, PAD, COPD, as thma, chronic A-fib anticoagulated on warfarin, chronic diastolic HF, CAD, history of DVT, vitamin B12 deficiency, GERD without esophagitis, senile osteoporosis, cervical spinal stenosis, prior tobacco use and depression who presented to the ED via EMS with complaint of SOB. Patient recently admitted from 09/05/24 to 09/11/24. She was managed for the following: acute COPD exacerbation with sepsis 2/2 superimposed bronchitis ISO RSV infection, DKA and acute on chronic diastolic HF. Successfully weaned off of supplemental O2 prior to discharge. PT/OT had recommended rehab on discharge however patient preferred to be discharged home with services. Acute respiratory failure with hypoxia likely multifactorial: CHF in setting of COPD/asthma Acute on chronic diastolic heart failure Chronic troponin elevation-improved when compared to prior CXR:Mild CHF suspected. Basilar pneumonia not excluded in the appropriate clinical context. Venous Doppler: No evidence for DVT of the bilateral lower extremity Normal procalcitonin Last ECHO:09/06/24: LVEF of 60 to 65%, moderate concentric LVH, focal area of akinesis involving the apical inferior wall otherwise normal wall motion, moderately calcified AV, mild valvular , mild MR, mild TR and grade II DD. Titrate down oxygen as able Monitor volume status, renal function, electrolytes Cardiology consulted Monitor I's and O's, daily weight Fluid restriction May need 2 step prior to discharge Continue Imdur IV diuresis, metoprolol held for now Resume diuretics - furosemide 20 daily - discussed w/ cardiology Currently no indication for defibrillator Held metoprolol due to bradycardia - > now resumed 12.5 mg daily Continue to monitor in PCU 3/2 - overnight pt reported CP, says it was sharp and resolved. but also reported some shortness of breath, and now on 2l of suppl.O2, feels more tired today discussed w/ cardiology - iv lasix dose given, pt re-assured 3/4 Pt is feeling well, on RA, eager for DC Torsades de pointes Prolonged QT Permanent atrial fibrillation Patient had 2 episodes of bradycardia with torsades overnight requiring brief chest compressions. CODE BLUE on 09/28/2024 --ECHO: EF 60 to 65%. Right ventricular cavity size is normal. Right ventricular systolic function is normal. Mild valvular aortic stenosis. Mild mitral and tricuspid regurgitation. Estimated systolic pulmonary pressure 44 mmHg. Mild pulmonary hypertension. --QT prolonging medications sertraline, trazodone, lyrica discontinued Monitor and replete electrolytes as needed isoproterenol ggt discontinued Appreciate cardiology, critical care input (3) Elevated troponin: Plan: Likely demand ischemia secondary to above (4) Supratherapeutic INR: Plan: No bleeding issues Resolved Monitor INR 2.7 today Cont. Coumadin Monitor and adjust Coumadin dose as needed (5) Chronic atrial fibrillation: Plan: Continue metoprolol Continue Coumadin (6) COPD (chronic obstructive pulmonary disease): Plan: Nebs as needed Would recommend Stiolto or Anoro on discharge, per pulm. Monitor (7) Depression: Plan: Zoloft discontinued due to torsades/QT prolongation (8) Diabetic polyneuropathy: (9) Insulin dependent type 2 diabetes mellitus: Plan: Uncontrolled Hgb A1c 12.2% Hold p.o. medications Has insulin pump at home Continue insulin per protocol Glycemic pharmacy to assist with management. Monitor blood glucose levels (10) HTN (hypertension): Plan: BP stable Monitor (11) Hyperlipidemia: Plan: On statin (12) Coronary artery disease: Plan: Continue ASA, rosuvastatin, metoprolol (13) GERD (gastroesophageal reflux disease): Plan: Continue Pepcid. DVT Px: Coumadin CODE STATUS Full code Disposition PT OT recommends rehab/ snf Notes For Next Care Provider Medication Changes From Visit Per Cardiology: Discontinue home sertraline, lyrica and trazodone (qtc prolonging meds) in the setting of torsades metoprolol succinate dose decreased to 12.5mg daily currently lasix 20mg daily on discharge Per pulm/crit: Anoro inhaler after discharge (per PCP) Admission HPI Per Admitting Provider Graciela Itz is a 74y/o F with PMHx significant for insulin-dependent DM type II, diabetic polyneuropathy, PAD, COPD, asthma, chronic A-fib anticoagulated on warfarin, chronic diastolic HF, CAD, history of DVT, vitamin B12 deficiency, GERD without esophagitis, senile osteoporosis, cervical spinal stenosis, prior tobacco use and depression who presented to the ED via EMS with complaint of SOB. History obtained from the patient, discussion with the ED provider and associated chart review. Patient seen at bedside in ED with Patient recently admitted under our service from 09/05/24 to 09/11/24. She was managed for the following: acute COPD exacerbation with sepsis 09/07 superimposed bronchitis ISO RSV infection, DKA and acute on chronic diastolic HF. Successfully weaned off of supplemental O2 prior to discharge. PT/OT had recommended rehab on discharge however patient preferred to be discharged home with services. Resting echocardiogram from 09/06/24 revealed LVEF of 60 to 65%, moderate concentric LVH, focal area of akinesis involving the apical inferior wall other cordova normal wall motion, moderately calcified AV, mild valvular , mild MR, mild TR and grade II DD. Patient been doing well at home following discharge on 09/11/24 up until last evening when she started to develop SOB - notably worse with exertion. Was found to be saturating in the low 80s SpO2 on RA by EMS. Had to initially be placed on 10L nonrebreather en route to ED. Now de-escalated to 4L NC at time of evaluation and saturating in the mid 90s SpO2. CXR with cardiomegaly, pulmonary vascular congestion and prominent interstitial lung markings. No evidence of pleural effusion. S/p hour-long Duoneb, 40mg IV Lasix and 60mg IV Solu-Medrol in the ED. Patient feels breathing is improving. Denies any cough or chest pain. No reported fevers. Denies any chills or body aches. Weight was 96.8kg on 09/11/24. Weight today is 97.976kg. Noted about 2.6lb weight gain. Notes compliance with medications at home, including warfarin. Denies any urinary or bowel habit issues. Did get slightly dizzy whilst trying to stand up at home earlier this morning due to her noted SOB with exertion. No reported falls, trauma or syncopal events. Appetite good. Has not noticed any increase in BLE swelling. ED labs personally reviewed. Respiratory BioFire panel negative. UA negative. Procalcitonin negative. Mild troponin elevation. BNP 964. INR supratherapeutic at 3.6. Admission Exam Per Admitting Provider She is awake, alert but appears tired and ill. Speech fluent, answers appropriately, Lungs clear without wheezing (wheezing however reported by ED provider on exam earlier), heart sounds regular, + murmur, abdomen soft, nontender. Pt is moving extremities, LLE calf slightly bigger than right, but no significant edema in general. Discharge Exam General: Alert, oriented. No acute distress Psych: Appropriate mood and affect Neuro: No gross deficits while sitting in the chair HEENT: NC/AT CV: RRR, + murmur Resp: Breath sounds clear bilaterally, no increased effort of breathing Abdomen: Soft, nontender Extremities: No edema in lower extremities bilaterally. Updated Medication List Medication Instructions Recorded Confirmed Type albuterol sulfate 90 mcg/actuation 2 puff inhalation QID PRN 01/12/20 09/26/24 History aerosol inhaler (Ventolin HFA) Shortness Of Breath Or Wheezing fluticasone propionate 50 2 spray intranasal QAM 01/12/20 09/26/24 History mcg/actuation nasal spray,suspension (Flonase Allergy Relief) metformin 1,000 mg tablet 1,000 mg PO BIDM 01/12/20 09/26/24 History nitroglycerin 0.3 mg sublingual 0.3 mg sublingual .PRN/UD PRN 01/12/20 09/26/24 History tablet (Nitrostat) Chest Pain warfarin 5 mg tablet See Rx Instructions .Route .COMPLEX 01/12/20 09/26/24 History cholecalciferol (vitamin D3) 25 1,000 unit PO QAM #30 caps 01/19/20 09/26/24 Rx mcg (1,000 unit) capsule multivitamin (Daily-Moiz tablet) 1 tab PO QAM #30 tabs 01/19/20 09/26/24 Rx cyanocobalamin (vitamin B-12) 1,000 mcg sublingual DAILY 09/21/22 09/26/24 H istory 1,000 mcg sublingual tablet aspirin 81 mg tablet,delayed 81 mg PO QAM 11/15/23 09/26/24 History release insulin aspart U-100 100 unit/mL See Rx Instructions .Route .COMPLEX 11/15/23 09/26/24 History subcutaneous solution (Novolog U-100 Insulin aspart) isosorbide mononitrate 60 mg 60 mg PO QAM 11/15/23 09/26/24 History tablet,extended release 24 hr rosuvastatin 20 mg tablet 20 mg PO QAM 11/15/23 09/26/24 History potassium chloride 20 mEq 20 meq PO 3XWK #30 tabs 11/17/23 09/26/24 Rx tablet,extended release famotidine 40 mg tablet 40 mg PO DAILY 09/05/24 09/26/24 History furosemide 20 mg tablet 20 mg PO QAM #30 tabs 10/08/24 Rx metoprolol succinate 25 mg 12.5 mg (1/2 x 25 mg) PO QAM #15 10/08/24 Rx tablet,extended release 24 hr tabs Hospital Stay Data Consultations 09/26/24 13:40 ED Decision to Admit Stat 09/26/24 15:12 Consult Cardiology Routine 09/28/24 05:40 Consult [employer] Routine Diagnostic Imagining Performed 09/26/24 15:05 US venous doppler LE Urgent Chest X-Ray 09/26/24 12:22 XR chest 1V portable CLINICAL HISTORY: Dyspnea COMPARISON STUDY: 09/07/2024 FINDINGS: Single view portable chest was again demonstrates cardiomegaly, pulmon ananth vascular congestion, and prominent interstitial lung markings. There is no sizable pleural effusion. Patchy groundglass airspace opacities are present in both lung bases. IMPRESSION: Mild CHF suspected. Basilar pneumonia not excluded in the appropriate clinical context. ACT 112: Negative or not required by law. Electronically signed by: Rosalind Munoz M.D. 09/26/2024 1:09 PM Venous Doppler Study 09/26/24 15:05 Examination: Doppler venous ultrasound of the lower extremity Comparison: None Technique: Grayscale evaluation with compression, spectral flow, and color Doppler assessment of the deep venous system of the leg, from the groin to the knee, as well as the lower leg Findings: The external iliac, common femoral, femoral, popliteal, and posterior tibial veins demonstrate normal compressibility and blood flow. Impression: No evidence for DVT of the bilateral lower extremity Electronically signed by Isaac Heath 09-26-2024 4:31 PM Chest X-Ray 09/28/24 05:51 EXAM: XR chest 1V portable CLINICAL HISTORY: Hypoxia TECHNIQUE: An X-ray image of the chest is obtained in AP projection. COMPARISON: CR 09/26/2024. FINDINGS: Pulmonary Parenchyma: Mildly progressed diffuse bilateral interstitial thickening, reticulations, and nodularity. may represent interstitial edema, however, early infection couldn't excluded. No evidence of consolidation, collapse, or focal opacities. No pulmonary nodules are identified. Blunted both costophrenic angles noted. Heart and Mediastinum: Enlarged cardiac size with bilateral hilar vascular congestion noted. left side retrocardiac tubular shadow is still seen. indeterminate nature. No mediastinal widening or masses. No hilar or mediastinal lymphadenopathy. A Wide superior mediastinum is newly seen. Bony Thorax: The bony thorax appears intact without fractures or deformities. Soft Tissues: Soft tissues overlying the chest wall are unremarkable. IMPRESSION: 1. Mildly progressed diffuse bilateral interstitial thickening, reticulations, and nodularity. may represent interstitial edema, however, early infection couldn't excluded. 2. Cardiomegaly was unchanged. 3. Blunted both costophrenic angles noted. 4. A Wide superior mediastinum is newly seen. Electronically signed by Jey Recinos 09-28-2024 08:00 AM Chest X-Ray 10/05/24 09:37 XR chest 1V portable HISTORY: 74 years-old Female sob acute shortness of breath COMPARISON: 09/28/2024 TECHNIQUE: AP view of the chest FINDINGS: Cardiac silhouette is enlarged. No pneumothorax or large pleural effusion. Mitral annular calcifications. Pulmonary vascular congestion. Mild left basilar atelectasis. Bones appear grossly intact. Cervical spinal fusion hardware. IMPRESSION: Cardiomegaly with pulmonary vascular congestion. ACT 112: Negative or not required by law. The above report was generated using voice recognition software. It may contain grammatical, syntax or spelling errors. Electronically signed by: Rajan Elizabeth M.D. 10/05/2024 9:58 AM Pending Results Patient Have Any Pending Studies at Discharge: No Discharge Instructions Given to Patient (Per Discharging Provider) Graciela, You were admitted and treated for trouble breathing related to your heart. You also had an abnormal heart rate while you were here. You were seen by the bulb assembler and the made some changes to your medications: -Do NOT take Sertraline, trazodone, Lyrica. Discontinue those medications at home -Your metoprolol dose was decreased to 12.5mg daily -You should take your home lasix 20mg once a day now You were also seen by the aviation medicine specialist or infant toddler lead teacher who recom mended that you continue with a specific inhaler after discharge. Your primary care provider can prescribe that for you. Please keep close follow up with Cardiology after discharge. Please also keep close follow up with your primary care provider after discharge. Please do not hesitate to come back to the emergency room if your symptoms worsen or return. It was a pleasure taking care of you while you were here. Total Time Total Time Spent Total Time Spent (In Minutes): 60
--- NOTE | 2024-10-08 15:32 | Electrocardiogram Report ---
Test Reason : Blood Pressure : */* mmHG Vent. Rate : 82 BPM Atrial Rate : 82 BPM P-R Int : 134 ms QRS Dur : 96 ms QT Int : 434 ms P-R-T Axes : 79 22 6 degrees QTcB Int : 507 ms Normal sinus rhythm Prolonged QT Abnormal ECG When compared with ECG of 04-Oct-2024 23:25, (unconfirmed) No significant change was found Confirmed by Laith Duncan ([id number]) on 10/08/2024 3:32:31 PM Referred By: REFERRED SELF Confirmed By: Laith Duncan
== END 2024-10-08 15:30 | disposition home health service (06) | DRG 291 ==
LOC: ED 12:08 → SUATTDRO 15:04 → 2E 15:04 → 1E 09-28 05:55 → 2S 10-01 18:19

== ENCOUNTER 2024-10-21 13:59 | Inpatient (IN) ==
[2024-10-21] MEDS: CALCIUM GLUCONATE 1,000 MG/60 ML BAG IV STA (14:14)
[2024-10-21 14:21] LABS: iSTAT Creatinine 1.1 mg/dl (0.6-1.3); iSTAT Hemoglobin 10.9 g/dl (12.0-16.0); iSTAT Ionized Calcium 1.14 mmol/l (1.12-1.32); iSTAT Potassium 5.6 mmol/L (3.3-5.0)
[2024-10-21 14:30] LABS: iSTAT Arterial Blood Gas HCO3 14 meg/L (19-24); iSTAT Arterial Blood Gas pCO2 22 mmHg (35-46); iSTAT Arterial Blood Gas pH 7.43 (7.35-7.45); iSTAT Arterial Blood Gas pO2 268 mmHg (80-95); iSTAT Carbon Dioxide 15 mmol/L (24-31); iSTAT Hematocrit 30 % (37-47); iSTAT Hemoglobin 10.2 g/dl (12.0-16.0); iSTAT Potassium 4.9 mmol/L (3.3-5.0); iSTAT Sodium 130 mmol/L (135-144)
[2024-10-21 14:40] LABS: Hematocrit (blood only) 31.9 % (37.0-47.0); Hemoglobin 10.3 g/dl (12.0-16.0); Mean Corpuscular Hemoglobin 28.8 pg (25.0-34.0); Mean Corpuscular Hgb Conc 32.3 g/dL (32.0-36.0); Mean Corpuscular Volume 89.1 fL (80.0-100.0); Mean Platelet Volume 11.6 fL (9.4-12.4); Platelet Count 184 K/uL (130-400); RDW Coefficient of Variation 15.1 % (11.5-14.5); RDW Standard Deviation 49.2 fL (36.4-46.3); Red Blood Count 3.58 M/uL (4.20-5.40); White Blood Count 10.39 K/ul (4.8-10.8)
--- NOTE | 2024-10-21 14:41 | XRay Report ---
XR chest 1V portable CLINICAL HISTORY: Sepsis COMPARISON STUDY: 10/05/2024 FINDINGS: There are mitral valvular calcifications. There is stable moderate cardiomegaly without pul monary vascular congestion. No effusion, consolidation, or pneumothorax. IMPRESSION: No acute findings. ACT 112: Negative or not required by law. Electronically signed by: Marcial Aaron M.D. 10/21/2024 2:40 PM
[2024-10-21] MEDS: CEFEPIME 2000MG 2,000 MG/20 ML SYR IV STA (14:51)
[2024-10-21 14:57] LABS: INR 4.1 (0.9-1.1); Partial Thromboplastin Ratio 1.4; Partial Thromboplastin Time 39 Seconds (21-31); Prothrombin Time 39.4 Seconds (9.0-12.0)
[2024-10-21] MEDS: SODIUM CHLORIDE 0.9% 500 ML IV ONE ×4 (14:59→18:10)
[2024-10-21] MEDS: SODIUM CHLORIDE 0.9% 500 ML IV SCH (15:04)
[2024-10-21] MEDS ORDERED: VANCOMYCIN CONSULT ACTIVE PRN (15:05)
--- NOTE | 2024-10-21 15:05 | Electrocardiogram Report ---
Test Reason : Blood Pressure : */* mmHG Vent. Rate : 128 BPM Atrial Rate : 128 BPM P-R Int : 160 ms QRS Dur : 96 ms QT Int : 334 ms P-R-T Axes : 89 87 46 degrees QTcB Int : 487 ms Sinus tachycardia with Premature atrial complexes Incomplete right bundle branch block Abnormal ECG When compared with ECG of 05-Oct-2024 23:09, Premature atrial complexes are now Present Vent. rate has increased by 46 bpm Incomplete right bundle branch block is now Present Confirmed by Isaac Man ([id number]) on 10/21/2024 3:05:04 PM Referred By: Confirmed By: Isaac Man
[2024-10-21] MEDS: SODIUM CHLORIDE 0.9% 1,000 ML IV ONE (15:10)
[2024-10-21 15:14] LABS: Basophils # (auto) 0.02 K/uL (0.00-0.20); Basophils % (auto) 0.2 %; Immature Granulocytes # (auto) 0.03 K/uL (0.01-0.20); Immature Granulocytes % (auto) 0.3 %; Lymphocytes # (auto) 0.35 K/uL (1.20-3.40); Lymphocytes % (auto) 3.4 %; Monocytes # (auto) 0.17 K/uL (0.11-0.59); Monocytes % (auto) 1.6 %; Neutrophils # (auto) 9.82 K/uL (1.40-6.50); Neutrophils % (auto) 94.5 %
[2024-10-21 15:25] LABS: Adenovirus PCR Not Detected (NotDetected); Bordetella parapertussis PCR Not Detected (NotDetected); Bordetella pertussis PCR Not Detected (NotDetected); Chlamydia pneumoniae PCR Not Detected (NotDetected); Coronavirus 229E PCR Not Detected (NotDetected); Coronavirus CoV-2 (COVID19)PCR Not Detected (NotDetected); Coronavirus HKU1 PCR Not Detected (NotDetected); Coronavirus NL63 PCR Not Detected (NotDetected); Coronavirus OC43PCR Not Detected (NotDetected); Human Metapneumovirus PCR Not Detected (NotDetected); Influenza A PCR Not Detected (NotDetected); Influenza B PCR Not Detected (NotDetected); Mycoplasma pneumoniae PCR Not Detected (NotDetected); Parainfluenza Virus 1 PCR Not Detected (NotDetected); Parainfluenza Virus 2 PCR Not Detected (NotDetected); Parainfluenza Virus 3 PCR Not Detected (NotDetected); Parainfluenza Virus 4 PCR Not Detected (NotDetected); Respiratory Syncytial VirusPCR Not Detected (NotDetected); Rhinovirus/Enterovirus PCR Not Detected (NotDetected)
[2024-10-21 15:37] LABS: Albumin Level 3.5 gm/dl (3.4-5.0); Bilirubin Direct 0.3 mg/dl (0-0.2); Bilirubin,Total 0.9 mg/dl (0.2-1.0); Calcium 9.7 mg/dl (8.6-10.3); Magnesium 1.6 mg/dl (1.7-2.4); Potassium 5.5 mmol/L (3.5-5.1)
[2024-10-21] MEDS: VANCOMYCIN HCL 2,000 MG in SODIUM CHLORIDE 0.9% 500 ML IV ONE (15:45)
[2024-10-21 15:51] LABS: Total Protein 6.9 gm/dl (6.0-8.3)
[2024-10-21 15:56] LABS: BUN Creatinine Ratio 23.3 (10-20); Creatinine Clr Calc Pharmacy 47.7 ml/min; Troponin I High Sensitivity 674.8 pg/ml (0-14)
--- NOTE | 2024-10-21 16:15 | Emergency Department Note ---
History of Present Illness General Chief complaint: Respiratory Distress Time Seen by Provider: 10/21/24 14:02 Source: EMS History of Present Illness Provider complaint: Shortness of breath 74-year-old female presents emergency department for shortness of breath. EMS reports that patient has been having shortness of breath for last 2 days. EMS reports that the patient was having respiratory distress when they arrived. They placed her on BiPAP. EMS reports that the patient was febrile. EMS gave 1 DuoNeb, Solu-Medrol 125 mg IV push, and 1 g of Tylenol IV. No reported falls or traumas. No headaches. Home Medications Medication Instructions Recorded Confirmed Type albuterol sulfate 90 mcg/actuation 2 puff inhalation QID PRN 01/12/20 10/21/24 History aerosol inhaler (Ventolin HFA) Shortness Of Breath Or Wheezing fluticasone propionate 50 2 spray intranasal QAM 01/12/20 10/21/24 History mcg/actuation nasal spray,suspension (Flonase Allergy Relief) metformin 1,000 mg tablet 1,000 mg PO BIDM 01/12/20 10/21/24 History nitroglycerin 0.3 mg sublingual 0.3 mg sublingual .PRN/UD PRN 01/12/20 10/21/24 History tablet (Nitrostat) Chest Pain warfarin 5 mg tablet 5 mg PO MOWEFRSA@1600 01/12/20 10/21/24 History cholecalciferol (vitamin D3) 25 1,000 unit PO QAM #30 caps 01/19/20 10/21/24 Rx mcg (1,000 unit) capsule multivitamin (Daily-Moiz tablet) 1 tab PO QAM #30 tabs 01/19/20 10/21/24 Rx cyanocobalamin (vitamin B-12) 1,000 mcg sublingual DAILY 09/21/22 10/21/24 History 1,000 mcg sublingual tablet aspirin 81 mg tablet,delayed 81 mg PO QAM 11/15/23 10/21/24 History release insulin aspart U-100 100 unit/mL See Rx Instructions .Route .COMPLEX 11/15/23 10/21/24 History subcutaneous solution (Novolog U-100 Insulin aspart) isosorbide mononitrate 60 mg 60 mg PO QAM 11/15/23 10/21/24 History tablet,extended release 24 hr rosuvastatin 20 mg tablet 20 mg PO QAM 11/15/23 10/21/24 History potassium chloride 20 mEq 20 meq PO 3XWK #30 tabs 11/17/23 10/21/24 Rx tablet,extended release famotidine 40 mg tablet 40 mg PO DAILY 09/05/24 10/21/24 History furosemide 20 mg tablet 20 mg PO QAM #30 tabs 10/08/24 10/21/24 Rx metoprolol succinate 25 mg 12.5 mg (1/2 x 25 mg) PO QAM #15 10/08/24 10/21/24 Rx tablet,extended release 24 hr tabs warfarin 5 mg tablet 10 mg PO SUTUTH@1600 10/21/24 10/21/24 History Allergies Allergy/AdvReac Type Severity Reaction Status Date / Time alendronate sodium Allergy Severe DIFFICULTY Verified 10/21/24 15:12 BREATHING/BURNING SENSATION esomeprazole Allergy Intermediate Hives Verified 10/21/24 15:12 Past Med/Surg History Problem List (Updated 10/21/24 @ 17:13 by Virginia Ramos PA-C) Lactic acidosis Severe sepsis Hyperkalemia (Acute) Sepsis (Acute) SOB (shortness of breath) Chest pain at rest Cardiac arrest Prolonged QT interval Torsades de pointes GERD (gastroesophageal reflux disease) Diabetic polyneuropathy Hyperlipidemia Insulin dependent type 2 diabetes mellitus Depression Chronic atrial fibrillation Supratherapeutic INR (Acute) Elevated troponin Acute on chronic diastolic heart failure Acute hypoxic respiratory failure Subtherapeutic international normalized ratio (INR) Paroxysmal atrial fibrillation Elevated troponin I level Demand ischemia of myocardium DKA, type 2 (Acute) RSV (acute bronchiolitis due to respiratory syncytial virus) (Acute) COPD exacerbation COVID (Acute) Pseudohyponatremia Hyperkalemia ASCVD (arteriosclerotic cardiovascular disease) Hypertensive urgency Respiratory distress Flash pulmonary edema (Acute) Hypertensive emergency (Acute) Hypotension Hypotension Hypoxia, sleep related UTI due to Klebsiella species HTN (hypertension) Acute exacerbation of congestive heart failure (Acute) Diastolic heart failure Ankle fracture, bimalleolar, closed Discharge planning issues DVT prophylaxis Anemia Chronic anticoagulation (Chronic) Dyslipidemia (Chronic) Asthma (Chronic) COPD (chronic obstructive pulmonary disease) (Chronic) Brittany-prosthetic fracture around prosthetic knee Congestive heart failure (Chronic) diastolic; LVEF by echo 01/13/20 70% Acute diastolic (congestive) heart failure Hypoxia (Acute) Osteoporosis Diabetes mellitus type 2, uncontrolled Coronary artery disease Atrial fibrillation (Acute) Microvascular angina DM type 2 (diabetes mellitus, type 2) (Chronic) Medical History Benign neoplasm of colon Osteoarthritis History of DVT (deep vein thrombosis) "RLE x 2 in " 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) "Abnormal left breast mammogram 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 Estrogen receptor positive and progesterone receptor positive Status post lumpectomy with sentinel lymph node biopsy stage [id number] 04/07/2015 Status post completion of radiation therapy 07/21/2015 received 6640 cGy" On 07/25/15 17:54 Jayleen Bates wrote "Abnormal left breast mammogram 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 Estrogen receptor positive and progesterone receptor positive Status post lumpectomy with sentinel lymph node biopsy stage [id number] 04/07/2015 Status post completion of radiation therapy 07/21/2015 received 6640 cGy" On 07/25/15 17:49 Jayleen Bates wrote "Abnormal left breast mammogram 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 Estrogen receptor positive and progesterone receptor positive Status post lumpectomy with sentinel lymph node biopsy stage [id number] 04/07/2015" Surgical History H/O partial mastectomy "left breast 04/2015 with lymph node biopsy" H/O arthroscopic knee surgery H/O colonoscopy History of carpal tunnel surgery S/P cervical spinal fusion S/P dilation and curettage H/O vein stripping Family History Other Breast cancer Diabetes Heart disease Social History Smoking Status: Never smoker Tobacco Type: Cigarettes Second Hand Exposure: No; Do You Dip or Chew Tobacco: No; Hx Alcohol Use: No Hx Substance Use: No Preferred Language: Divehi Communication Ability: Effective Beck Tender Required: No Beliefs That Will Affect Care: None Current Living Situation: Family Current Living Situation Comment: lives at home with and step-son Feels Safe at Home: Yes Assistive Devices: Walker Physical Exam Vital Signs Vital Signs - 24 hr 10/21/24 13:47 10/21/24 13:47 10/21/24 13:47 Temperature 37.7 C H Temperature Source Oral Pulse Rate 133 H Pulse Rate [Apical] Pulse Rate from SpO2 Sensor Respiratory Rate 24 Respiratory Effort / Characteristics Spontaneous Labored Short of Breath Spontaneous Respiratory Depth Shallow Respiratory Pattern Regular Regular Blood Pressure 132/89 Blood Pressure [Right Arm] Blood Pressure Mean 103 Blood Pressure Mean [Right Arm] Pulse Oximetry 100 100 Oxygen Delivery Method BiPAP BiPAP BiPAP Fraction of Inspired Oxygen Sepsis Recent Fever Within 48 Hours Yes Sepsis New/Unexplained Change in Mental Status Yes Sepsis Action Taken by Nursing Physician Notified 10/21/24 14:02 10/21/24 14:26 10/21/24 14:27 Temperature Temperature Source Pulse Rate 128 H 128 H Pulse Rate [Apical] Pulse Rate from SpO2 Sensor Respiratory Rate 28 H Respiratory Effort / Characteristics Spontaneous Short of Breath Respiratory Depth Respiratory Pattern Tachypnea Blood Pressure Blood Pressure [Right Arm] Blood Pressure Mean Blood Pressure Mean [Right Arm] Pulse Oximetry 100 100 Oxygen Delivery Method BiPAP Fraction of Inspired Oxygen 60 Sepsis Recent Fever Within 48 Hours Sepsis New/Unexplained Change in Mental Status Sepsis Action Taken by Nursing 10/21/24 14:32 10/21/24 14:47 10/21/24 15:00 Temperature 39 C H 39.1 C H Temperature Source Cisneros Cath ( Temp Sensing) Cisneros Cath ( Temp Sensing) Pulse Rate Pulse Rate [Apical] 102 H 108 H 110 H Pulse Rate from SpO2 Sensor Respiratory Rate 20 20 21 Respiratory Effort / Characteristics Spontaneous Spontaneous Respiratory Depth Shallow Shallow Respiratory Pattern Regular Blood Pressure Blood Pressure [Right Arm] 96/53 L 78/49 L 101/55 L Blood Pressure Mean Blood Pressure Mean [Right Arm] 67 58 70 Pulse Oximetry 99 100 100 Oxygen Delivery Method BiPAP BiPAP BiPAP Fraction of Inspired Oxygen Sepsis Recent Fever Within 48 Hours Sepsis New/Unexplained Change in Mental Status Sepsis Action Taken by Nursing 10/21/24 15:00 10/21/24 15:05 10/21/24 15:10 Temperature 39.2 C H Temperature Source Cisneros Cath ( Temp Sensing) Pulse Rate 111 H 104 H Pulse Rate [Apical] 107 H Pulse Rate from SpO2 Sensor Respiratory Rate 20 26 H 24 Respiratory Effort / Characteristics Spontaneous Respiratory Depth Shallow Respiratory Pattern Blood Pressure 101/55 L 92/64 L Blood Pressure [Right Arm] 90/51 L Blood Pressure Mean 79 74 Blood Pressure Mean [Right Arm] 64 Pulse Oximetry 100 100 100 Oxygen Delivery Method BiPAP BiPAP BiPAP Fraction of Inspired Oxygen Sepsis Recent Fever Within 48 Hours Sepsis New/Unexplained Change in Mental Status Sepsis Action Taken by Nursing 10/21/24 15:15 10/21/24 15:25 10/21/24 15:30 Temperature Temperature Source Pulse Rate 99 H 98 H Pulse Rate [Apical] Pulse Rate from SpO2 Sensor Respiratory Rate 24 24 Respiratory Effort / Characteristics Respiratory Depth Respiratory Pattern Blood Pressure 96/56 L 98/52 L 100/53 L Blood Pressure [Right Arm] Blood Pressure Mean 67 73 63 Blood Pressure Mean [Right Arm] Pulse Oximetry 100 100 Oxygen Delivery Method Fraction of Inspired Oxygen Sepsis Recent Fever Within 48 Hours Sepsis New/Unexplained Change in Mental Status Sepsis Action Taken by Nursing 10/21/24 15:35 10/21/24 15:45 10/21/24 15:50 Temperature Temperature Source Pulse Rate 99 H 99 H 98 H Pulse Rate [Apical] Pulse Rate from SpO2 Sensor Respiratory Rate 26 H 24 26 H Respiratory Effort / Characteristics Respiratory Depth Respiratory Pattern Blood Pressure 99/59 L 103/63 97/64 L Blood Pressure [Right Arm] Blood Pressure Mean 64 81 83 Blood Pressure Mean [Right Arm] Pulse Oximetry 100 100 100 Oxygen Delivery Method Fraction of Inspired Oxygen Sepsis Recent Fever Within 48 Hours Sepsis New/Unexplained Change in Mental Status Sepsis Action Taken by Nursing 10/21/24 15:54 10/21/24 16:00 10/21/24 16:10 Temperature Temperature Source Pulse Rate 100 H 100 H 115 H Pulse Rate [Apical] Pulse Rate from SpO2 Sensor 100 H 100 H Respiratory Rate 26 H 23 23 Respiratory Effort / Characteristics Respiratory Depth Respiratory Pattern Blood Pressure 100/61 112/61 111/65 Blood Pressure [Right Arm] Blood Pressure Mean 74 79 85 Blood Pressure Mean [Right Arm] Pulse Oximetry 100 99 100 Oxygen Delivery Method Fraction of Inspired Oxygen Sepsis Recent Fever Within 48 Hours Sepsis New/Unexplained Change in Mental Status Sepsis Action Taken by Nursing 10/21/24 16:11 10/21/24 16:15 10/21/24 16:20 Temperature 38.2 C H Temperature Source Cisneros Cath ( Temp Sensing) Pulse Rate 115 H 105 H Pulse Rate [Apical] Pulse Rate from SpO2 Sensor Respiratory Rate 31 H 24 Respiratory Effort / Characteristics Respiratory Depth Respiratory Pattern Blood Pressure 113/67 107/71 Blood Pressure [Right Arm] Blood Pressure Mean 77 78 Blood Pressure Mean [Right Arm] Pulse Oximetry 100 100 Oxygen Delivery Method BiPAP BiPAP Fraction of Inspired Oxygen Sepsis Recent Fever Within 48 Hours Sepsis New/Unexplained Change in Mental Status Sepsis Action Taken by Nursing 10/21/24 16:40 10/21/24 16:55 10/21/24 17:05 Temperature Temperature Source Pulse Rate 109 H 108 H 106 H Pulse Rate [Apical] Pulse Rate from SpO2 Sensor Respiratory Rate 20 27 H 26 H Respiratory Effort / Characteristics Respiratory Depth Respiratory Pattern Blood Pressure 103/59 L 120/78 121/60 Blood Pressure [Right Arm] Blood Pressure Mean 76 88 72 Blood Pressure Mean [Right Arm] Pulse Oximetry 100 100 100 Oxygen Delivery Method BiPAP BiPAP BiPAP Fraction of Inspired Oxygen Sepsis Recent Fever Within 48 Hours Sepsis New/Unexplained Change in Mental Status Sepsis Action Taken by Nursing Physical Exam GENERAL: Ill-appearing on BiPAP. HENT: Exam performed. -Head: Normocephalic and atraumatic. NECK: Normal range of motion. Neck supple. No JVD present. CV: Tachycardic rate, regular rhythm, normal heart sounds and intact distal pulses.Palpable radial pulses bue. PULM/CHEST: Respiratory distress. Rales and rhonchi bilaterally on BiPAP. ABD: The abdomen is soft and obese. NEURO: Motor and sensation grossly intact. Course Course 1402: The patient was evaluated in room A1. A complete history and physical exam was performed Cardiac monitoring: An order was placed for continuous cardiac monitoring. The monitor shows a rate of 120 with sinus tachycardia rhythm interpreted by az Sepsis protocols initiated. 1420: External medical records reviewed. Patient was admitted from to October 08, 2024. She was admitted for acute hypoxic respiratory failure acute on chronic diastolic heart failure. While admitted the patient had 2 episodes of bradycardia and torsades. Echo showed an ejection fraction of 60 to 65%. QT prolonging was thought to be secondary to medications sertraline trazodone Lyrica all of which were discontinued. I-STAT shows potassium of 5.6. Given this patient be given calcium gluconate IV push. 1450: Lactic acid greater than 10. Unclear if this is truly because the patient's infection could be due to her hypoxia also. Patient with a history of CHF. Blood pressure is currently stable. Will hold off on fluids immediately. Cefepime ordered for the patient. 1530: Patient becoming hypotensive. 500 cc normal saline bolus ordered given the patient's history of CHF. 1600: Patient's blood pressure improved with 500 cc bolus. She became hypotensive again. Chest x-ray viewed by az shows possible right-sided infiltrate. Procalcitonin is elevated. Patient will be given additional liter normal saline bolus and maintenance fluids at 125 an hour. This was accomplished the 30 cc/kg normal saline fluid administration based off the patient's ideal body weight. Vancomycin will be ordered for the patient. Patient will be admitted to the [facility] hospitalist team. Administered Medications Sodium Chloride (Nss) 500 mls @ 125 mls/hr IV .Q4H [facility] Stop: 10/21/24 18:59 Last Admin: 10/21/24 15:04 Dose: 125 mls/hr Documented By: NIGEL Vancomycin HCl 2,000 mg/ (Sodium Chloride) 540 mls @ 200 mls/hr IV NOW ONE Stop: 10/21/24 17:46 Last Admin: 10/21/24 15:45 Dose: 200 mls/hr Documented By: AMERICO Insulin Human Regular 250 (units/ Sodium Chloride) 250 mls @ 9.5 mls/hr IV .Q24H RAQUEL; Protocol Stop: 11/20/24 16:44 Last Admin: 10/21/24 17:34 Dose: 9.5 units/hr, 9.5 mls/hr Documented By: EDENILSON Co-signed By: LELE Discontinued Medications Calcium Gluconate () 1,000 mg in 60 mls @ 240 mls/hr IV NOW STA Stop: 10/21/24 14:25 Last Infusion: 10/21/24 14:29 Dose: Infused Documented By: Admin: 10/21/24 14:14 Dose: 240 mls/hr Documented By: NIGEL Cefepime HCl (Maxipime 2000mg) 2,000 mg in 20 mls @ 5 mls/min IV NOW STA; Protocol Stop: 10/21/24 14:25 Last Admin: 10/21/24 14:51 Dose: 5 mls/min Documented By: AMERICO Sodium Chloride (Nss) 500 mls @ 999 mls/hr IV .Q31M ONE Stop: 10/21/24 15:17 Last Infusion: 10/21/24 15:31 Dose: Infused Documented By: Admin: 10/21/24 14:59 Dose: 999 mls/hr Documented By: NIGEL Sodium Chloride (Nss) 1,000 mls @ 999 mls/hr IV .Q1H1M ONE Stop: 10/21/24 16:08 Last Infusion: 10/21/24 16:14 Dose: Infused Documented By: Admin: 10/21/24 15:10 Dose: 999 mls/hr Documented By: NIGEL Sodium Chloride (Nss) 500 mls @ 999 mls/hr IV .Q31M ONE Stop: 10/21/24 16:56 Last Admin: 10/21/24 17:10 Dose: 999 mls/hr Documented By: EDENILSON Insulin Human Regular (Novolin-R Bolus From Bag) 9 units IV ONE ONE Stop: 10/21/24 17:01 Last Admin: 10/21/24 17:34 Dose: 9 units Documented By: EDENILSON Co-signed By: LELE Ioversol (Optiray 320 100ml) 93 ml IV ONCE ONE Stop: 10/21/24 17:26 Last Admin: 10/21/24 17:26 Dose: 93 ml Documented By: AMOL Critical Care Time Critical Care Time: Yes Total Critical Care Time: 79 I have personally spent greater than 79 minutes of critical care time in the direct management of this patient. This includes bedside care, interpretation of diagnostic studies, and testing, discussion with consultants, patient, and family members, and other required patient management activities. This 79 minutes is in excess of all separately billable procedures. Medical Decision Making Medical Records Attestation: I reviewed the patient's medical records. External medical records reviewed. Patient was admitted from to October 08, 2024. She was admitted for acute hypoxic respiratory failure acute on chronic diastolic heart failure. While admitted the patient had 2 episodes of bradycardia and torsades. Echo showed an ejection fraction of 60 to 65%. QT prolonging was thought to be secondary to medications sertraline trazodone Lyrica all of which were discontinued. Laboratory Data Attestation: I reviewed the patient's lab results. 10/21/24 14:06 10/21/24 16:21 Lab Results 10/21/24 10/21/24 10/21/24 Range/Units 14:06 14:07 14:09 WBC 10.39 (4.8-10.8) K/ul RBC 3.58 L (4.20-5.40) M/uL Hgb 10.3 L (12.0-16.0) g/dl POC Hgb 10.9 L (12.0-16.0) g/dl Hct 31.9 L (37.0-47.0) % POC Hct 32 L (37-47) % MCV 89.1 (80.0-100.0) fL MCH 28.8 (25.0-34.0) pg MCHC 32.3 (32.0-36.0) g/dL RDW Std Deviation 49.2 H (36.4-46.3) fL RDW Coeff of Katrin 15.1 H (11.5-14.5) % Plt Count 184 (130-400) K/uL MPV 11.6 (9.4-12.4) fL Immature Gran % (Auto) 0.3 % Neut % (Auto) 94.5 % Lymph % (Auto) 3.4 % Greenlee % (Auto) 1.6 % Eos % (Auto) 0.0 % Baso % (Auto) 0.2 % Neut # (Auto) 9.82 H (1.40-6.50) K/uL Lymph # (Auto) 0.35 L (1.20-3.40) K/uL Greenlee # (Auto) 0.17 (0.11-0.59) K/uL Eos # (Auto) 0.00 (0.00-0.50) K/uL Baso # (Auto) 0.02 (0.00-0.20) K/uL Immature Gran # (Auto) 0.03 (0.01-0.20) K/uL PT 39.4 H (9.0-12.0) Seconds INR 4.1 H (0.9-1.1) APTT 39 H (21-31) Seconds PTT Ratio 1.4 POC pH (7.35-7.45) POC pCO2 (35-46) mmHg POC pO2 (80-95) mmHg POC HCO3 (19-24) meño/L POC Base Excess (-9-1.8) meño/L POC ABG O2 Sat (90-95) % POC Sodium 133 L (135-144) mmol/L Sodium 134 L (136-145) mmol/L POC Potassium 5.6 H (3.3-5.0) mmol/L Potassium 5.5 H (3.5-5.1) mmol/L POC Chloride 101 (101-112) mmol/L Chloride 98 (98-107) mmol/L Carbon Dioxide 19 L (21-32) mmol/L POC Total CO2 17 L (24-31) mmol/L Anion Gap 17 H (3-11) POC Anion Gap 21.0 (16-25) mmol/L POC BUN 25 H (7-18) mg/dl BUN 27 H (6-23) mg/dl Creatinine 1.16 (0.6-1.2) mg/dl POC Creatinine 1.1 (0.6-1.3) mg/dl Est Cr Clr Drug Dosing 47.7 ml/min eGFR 49.17 BUN/Creatinine Ratio 23.3 H (10-20) Glucose 467 H* (70-99(Fasting)) mg/dl POC Glucose 447 H* (70-99) mg/dl POC Glucose (other) 426 H* (70-99) mg/dl Lactate 10.7 H* (0.4-2.0) mmol/L Calcium 9.7 (8.6-10.3) mg/dl POC Ioniz Calcium [place]ore[place] 1.14 (1.12-1.32) mmol/l Magnesium 1.6 L (1.7-2.4) mg/dl Total Bilirubin 0.9 (0.2-1.0) mg/dl Direct Bilirubin 0.3 H (0-0.2) mg/dl AST 44 H (13-39) U/L ALT 25 (7-52) U/L Alkaline Phosphatase 173 H (34-104) U/L Troponin I High Sens 674.8 H* (0-14) pg/ml B-Natriuretic Peptide (0-100) pg/ml Total Protein 6.9 (6.0-8.3) gm/dl Albumin 3.5 (3.4-5.0) gm/dl Procalcitonin 15.30 H (0-0.5) ng/ml Urine Color Urine Appearance (Clear) Urine pH (4.5-7.5) Ur Specific [place] (1.000-1.030) Urine Protein (Negative) Urine Glucose (UA) (Negative) Urine Ketones (Negative) Urine Blood (Negative) Urine Nitrite (Negative) Urine Bilirubin (Negative) Urine Urobilinogen (Negative) Ur Leukocyte Esterase (Negative) Urine WBC (Auto) (0-5) /hpf Urine RBC (Auto) (0-2) /hpf U Hyaline Cast (Auto) (0-2) /lpf U Epithel Cells (Auto) (0-2) /hpf Urine Bacteria (Auto) (None Seen) Hyaline Casts (None Presnt) /lpf Adenovirus (PCR) Not Detected (NotDetected) B. pertussis DNA (PCR) Not Detected (NotDetected) B.parapertussis DNA PCR Not Detected (NotDetected) C. pneumoniae DNA (PCR) Not Detected (NotDetected) Coronavirus OC43 (PCR) Not Detected (NotDetected) Coronavirus HKU1 (PCR) Not Detected (NotDetected) Coronavirus 229E (PCR) Not Detected (NotDetected) SARS-CoV-2 (PCR) Not Detected (NotDetected) Coronavirus NL63 (PCR) Not Detected (NotDetected) Human Metapneumovir PCR Not Detected (NotDetected) Influenza Type A (PCR) Not Detected (NotDetected) Influenza Type B (PCR) Not Detected (NotDetected) M. pneumoniae (PCR) Not Detected (NotDetected) Parainfluenza 1 (PCR) Not Detected (NotDetected) Parainfluenza 2 (PCR) Not Detected (NotDetected) Parainfluenza 3 (PCR) Not Detected (NotDetected) Parainfluenza 4 (PCR) Not Detected (NotDetected) RSV (PCR) Not Detected (NotDetected) Entero/Rhino (PCR) Not Detected (NotDetected) 10/21/24 10/21/24 10/21/24 Range/Units 14:16 14:40 15:49 WBC (4.8-10.8) K/ul RBC (4.20-5.40) M/uL Hgb (12.0-16.0) g/dl POC Hgb 10.2 L (12.0-16.0) g/dl Hct (37.0-47.0) % POC Hct 30 L (37-47) % MCV (80.0-100.0) fL MCH (25.0-34.0) pg MCHC (32.0-36.0) g/dL RDW Std Deviation (36.4-46.3) fL RDW Coeff of Katrin (11.5-14.5) % Plt Count (130-400) K/uL MPV (9.4-12.4) fL Immature Gran % (Auto) % Neut % (Auto) % Lymph % (Auto) % Greenlee % (Auto) % Eos % (Auto) % Baso % (Auto) % Neut # (Auto) (1.40-6.50) K/uL Lymph # (Auto) (1.20-3.40) K/uL Greenlee # (Auto) (0.11-0.59) K/uL Eos # (Auto) (0.00-0.50) K/uL Baso # (Auto) (0.00-0.20) K/uL Immature Gran # (Auto) (0.01-0.20) K/uL PT (9.0-12.0) Seconds INR (0.9-1.1) APTT (21-31) Seconds PTT Ratio POC pH 7.43 (7.35-7.45) POC pCO2 22 L (35-46) mmHg POC pO2 268 H (80-95) mmHg POC HCO3 14 L (19-24) meño/L POC Base Excess -10.0 L (-9-1.8) meño/L POC ABG O2 Sat 100.0 H (90-95) % POC Sodium 130 L (135-144) mmol/L Sodium (136-145) mmol/L POC Potassium 4.9 (3.3-5.0) mmol/L Potassium (3.5-5.1) mmol/L POC Chloride (101-112) mmol/L Chloride (98-107) mmol/L Carbon Dioxide (21-32) mmol/L POC Total CO2 15 L (24-31) mmol/L Anion Gap (3-11) POC Anion Gap (16-25) mmol/L POC BUN (7-18) mg/dl BUN (6-23) mg/dl Creatinine (0.6-1.2) mg/dl POC Creatinine (0.6-1.3) mg/dl Est Cr Clr Drug Dosing ml/min eGFR BUN/Creatinine Ratio (10-20) Glucose (70-99(Fasting)) mg/dl POC Glucose (70-99) mg/dl POC Glucose (other) (70-99) mg/dl Lactate 7.7 H* (0.4-2.0) mmol/L Calcium (8.6-10.3) mg/dl POC Ioniz Calcium Lorena (1.12-1.32) mmol/l Magnesium (1.7-2.4) mg/dl Total Bilirubin (0.2-1.0) mg/dl Direct Bilirubin (0-0.2) mg/dl AST (13-39) U/L ALT (7-52) U/L Alkaline Phosphatase (34-104) U/L Troponin I High Sens (0-14) pg/ml B-Natriuretic Peptide 1156 H (0-100) pg/ml Total Protein (6.0-8.3) gm/dl Albumin (3.4-5.0) gm/dl Procalcitonin (0-0.5) ng/ml Urine Color Urine Appearance (Clear) Urine pH (4.5-7.5) Ur Specific [place] (1.000-1.030) Urine Protein (Negative) Urine Glucose (UA) (Negative) Urine Ketones (Negative) Urine Blood (Negative) Urine Nitrite (Negative) Urine Bilirubin (Negative) Urine Urobilinogen (Negative) Ur Leukocyte Esterase (Negative) Urine WBC (Auto) (0-5) /hpf Urine RBC (Auto) (0-2) /hpf U Hyaline Cast (Auto) (0-2) /lpf U Epithel Cells (Auto) (0-2) /hpf Urine Bacteria (Auto) (None Seen) Hyaline Casts (None Presnt) /lpf Adenovirus (PCR) (NotDetected) B. pertussis DNA (PCR) (NotDetected) B.parapertussis DNA PCR (NotDetected) C. pneumoniae DNA (PCR) (NotDetected) Coronavirus OC43 (PCR) (NotDetected) Coronavirus HKU1 (PCR) (NotDetected) Coronavirus 229E (PCR) (NotDetected) SARS-CoV-2 (PCR) (NotDetected) Coronavirus NL63 (PCR) (NotDetected) Human Metapneumovir PCR (NotDetected) Influenza Type A (PCR) (NotDetected) Influenza Type B (PCR) (NotDetected) M. pneumoniae (PCR) (NotDetected) Parainfluenza 1 (PCR) (NotDetected) Parainfluenza 2 (PCR) (NotDetected) Parainfluenza 3 (PCR) (NotDetected) Parainfluenza 4 (PCR) (NotDetected) RSV (PCR) (NotDetected) Entero/Rhino (PCR) (NotDetected) 10/21/24 10/21/24 10/21/24 Range/Units 16:11 16:21 16:21 WBC (4.8-10.8) K/ul RBC (4.20-5.40) M/uL Hgb (12.0-16.0) g/dl POC Hgb (12.0-16.0) g/dl Hct (37.0-47.0) % POC Hct (37-47) % MCV (80.0-100.0) fL MCH (25.0-34.0) pg MCHC (32.0-36.0) g/dL RDW Std Deviation (36.4-46.3) fL RDW Coeff of Katrin (11.5-14.5) % Plt Count (130-400) K/uL MPV (9.4-12.4) fL Immature Gran % (Auto) % Neut % (Auto) % Lymph % (Auto) % Greenlee % (Auto) % Eos % (Auto) % Baso % (Auto) % Neut # (Auto) (1.40-6.50) K/uL Lymph # (Auto) (1.20-3.40) K/uL Greenlee # (Auto) (0.11-0.59) K/uL Eos # (Auto) (0.00-0.50) K/uL Baso # (Auto) (0.00-0.20) K/uL Immature Gran # (Auto) (0.01-0.20) K/uL PT (9.0-12.0) Seconds INR (0.9-1.1) APTT (21-31) Seconds PTT Ratio POC pH (7.35-7.45) POC pCO2 (35-46) mmHg POC pO2 (80-95) mmHg POC HCO3 (19-24) meño/L POC Base Excess (-9-1.8) meño/L POC ABG O2 Sat (90-95) % POC Sodium (135-144) mmol/L Sodium 134 L (136-145) mmol/L POC Potassium (3.3-5.0) mmol/L Potassium 4.3 D (3.5-5.1) mmol/L POC Chloride (101-112) mmol/L Chloride 101 (98-107) mmol/L Carbon Dioxide 15 L (21-32) mmol/L POC Total CO2 (24-31) mmol/L Anion Gap 18 H (3-11) POC Anion Gap (16-25) mmol/L POC BUN (7-18) mg/dl BUN 29 H (6-23) mg/dl Creatinine 1.26 H (0.6-1.2) mg/dl POC Creatinine (0.6-1.3) mg/dl Est Cr Clr Drug Dosing 43.9 ml/min eGFR 44.52 BUN/Creatinine Ratio 23.0 H (10-20) Glucose 456 H* (70-99(Fasting)) mg/dl POC Glucose (70-99) mg/dl POC Glucose (other) (70-99) mg/dl Lactate 9.5 H* (0.4-2.0) mmol/L Calcium 8.7 (8.6-10.3) mg/dl POC Ioniz Calcium [place] (1.12-1.32) mmol/l Magnesium (1.7-2.4) mg/dl Total Bilirubin (0.2-1.0) mg/dl Direct Bilirubin (0-0.2) mg/dl AST (13-39) U/L ALT (7-52) U/L Alkaline Phosphatase (34-104) U/L Troponin I High Sens 697.3 H* 666.7 H* (0-14) pg/ml B-Natriuretic Peptide (0-100) pg/ml Total Protein (6.0-8.3) gm/dl Albumin (3.4-5.0) gm/dl Procalcitonin (0-0.5) ng/ml Urine Color Yellow Urine Appearance Cloudy A (Clear) Urine pH 5.0 (4.5-7.5) Ur Specific [place] 1.026 (1.000-1.030) Urine Protein 2+ H (Negative) Urine Glucose (UA) Trace H (Negative) Urine Ketones Trace H (Negative) Urine Blood 3+ H (Negative) Urine Nitrite Negative (Negative) Urine Bilirubin Negative (Negative) Urine Urobilinogen Negative (Negative) Ur Leukocyte Esterase Negative (Negative) Urine WBC (Auto) 11-20 H (0-5) /hpf Urine RBC (Auto) >20 H (0-2) /hpf U Hyaline Cast (Auto) >20 H (0-2) /lpf U Epithel Cells (Auto) 6-10 H (0-2) /hpf Urine Bacteria (Auto) 1+ H (None Seen) Hyaline Casts Present A (None Presnt) /lpf Adenovirus (PCR) (NotDetected) B. pertussis DNA (PCR) (NotDetected) B.parapertussis DNA PCR (NotDetected) C. pneumoniae DNA (PCR) (NotDetected) Coronavirus OC43 (PCR) (NotDetected) Coronavirus HKU1 (PCR) (NotDetected) Coronavirus 229E (PCR) (NotDetected) SARS-CoV-2 (PCR) (NotDetected) Coronavirus NL63 (PCR) (NotDetected) Human Metapneumovir PCR (NotDetected) Influenza Type A (PCR) (NotDetected) Influenza Type B (PCR) (NotDetected) M. pneumoniae (PCR) (NotDetected) Parainfluenza 1 (PCR) (NotDetected) Parainfluenza 2 (PCR) (NotDetected) Parainfluenza 3 (PCR) (NotDetected) Parainfluenza 4 (PCR) (NotDetected) RSV (PCR) (NotDetected) Entero/Rhino (PCR) (NotDetected) 10/21/24 Range/Units 16:28 WBC (4.8-10.8) K/ul RBC (4.20-5.40) M/uL Hgb (12.0-16.0) g/dl POC Hgb (12.0-16.0) g/dl Hct (37.0-47.0) % POC Hct (37-47) % MCV (80.0-100.0) fL MCH (25.0-34.0) pg MCHC (32.0-36.0) g/dL RDW Std Deviation (36.4-46.3) fL RDW Coeff of Katrin (11.5-14.5) % Plt Count (130-400) K/uL MPV (9.4-12.4) fL Immature Gran % (Auto) % Neut % (Auto) % Lymph % (Auto) % [place] % (Auto) % Eos % (Auto) % Baso % (Auto) % Neut # (Auto) (1.40-6.50) K/uL Lymph # (Auto) (1.20-3.40) K/uL [place] # (Auto) (0.11-0.59) K/uL Eos # (Auto) (0.00-0.50) K/uL Baso # (Auto) (0.00-0.20) K/uL Immature Gran # (Auto) (0.01-0.20) K/uL PT (9.0-12.0) Seconds INR (0.9-1.1) APTT (21-31) Seconds PTT Ratio POC pH (7.35-7.45) POC pCO2 (35-46) mmHg POC pO2 (80-95) mmHg POC HCO3 (19-24) meño/L POC Base Excess (-9-1.8) meño/L POC ABG O2 Sat (90-95) % POC Sodium (135-144) mmol/L Sodium (136-145) mmol/L POC Potassium (3.3-5.0) mmol/L Potassium (3.5-5.1) mmol/L POC Chloride (101-112) mmol/L Chloride (98-107) mmol/L Carbon Dioxide (21-32) mmol/L POC Total CO2 (24-31) mmol/L Anion Gap (3-11) POC Anion Gap (16-25) mmol/L POC BUN (7-18) mg/dl BUN (6-23) mg/dl Creatinine (0.6-1.2) mg/dl POC Creatinine (0.6-1.3) mg/dl Est Cr Clr Drug Dosing ml/min eGFR BUN/Creatinine Ratio (10-20) Glucose (70-99(Fasting)) mg/dl POC Glucose 409 H* (70-99) mg/dl POC Glucose (other) (70-99) mg/dl Lactate (0.4-2.0) mmol/L Calcium (8.6-10.3) mg/dl POC Ioniz Calcium [place] (1.12-1.32) mmol/l Magnesium (1.7-2.4) mg/dl Total Bilirubin (0.2-1.0) mg/dl Direct Bilirubin (0-0.2) mg/dl AST (13-39) U/L ALT (7-52) U/L Alkaline Phosphatase (34-104) U/L Troponin I High Sens (0-14) pg/ml B-Natriuretic Peptide (0-100) pg/ml Total Protein (6.0-8.3) gm/dl Albumin (3.4-5.0) gm/dl Procalcitonin (0-0.5) ng/ml Urine Color Urine Appearance (Clear) Urine pH (4.5-7.5) Ur Specific [place] (1.000-1.030) Urine Protein (Negative) Urine Glucose (UA) (Negative) Urine Ketones (Negative) Urine Blood (Negative) Urine Nitrite (Negative) Urine Bilirubin (Negative) Urine Urobilinogen (Negative) Ur Leukocyte Esterase (Negative) Urine WBC (Auto) (0-5) /hpf Urine RBC (Auto) (0-2) /hpf U Hyaline Cast (Auto) (0-2) /lpf U Epithel Cells (Auto) (0-2) /hpf Urine Bacteria (Auto) (None Seen) Hyaline Casts (None Presnt) /lpf Adenovirus (PCR) (NotDetected) B. pertussis DNA (PCR) (NotDetected) B.parapertussis DNA PCR (NotDetected) C. pneumoniae DNA (PCR) (NotDetected) Coronavirus OC43 (PCR) (NotDetected) Coronavirus HKU1 (PCR) (NotDetected) Coronavirus 229E (PCR) (NotDetected) SARS-CoV-2 (PCR) (NotDetected) Coronavirus NL63 (PCR) (NotDetected) Human Metapneumovir PCR (NotDetected) Influenza Type A (PCR) (NotDetected) Influenza Type B (PCR) (NotDetected) M. pneumoniae (PCR) (NotDetected) Parainfluenza 1 (PCR) (NotDetected) Parainfluenza 2 (PCR) (NotDetected) Parainfluenza 3 (PCR) (NotDetected) Parainfluenza 4 (PCR) (NotDetected) RSV (PCR) (NotDetected) Entero/Rhino (PCR) (NotDetected) Imaging Data Attestation: I personally reviewed and interpreted this imaging study as follows: My Impression: Chest x-ray: Possible right-sided infiltrate Radiologist's Impression: Chest X-Ray 10/21/24 14:02 XR chest 1V portable CLINICAL HISTORY: Sepsis COMPARISON STUDY: 10/05/2024 FINDINGS: There are mitral valvular calcifications. There is stable moderate cardiomegaly without pulmonary vascular congestion. No effusion, consolidation, or pneumothorax. IMPRESSION: No acute findings. ACT 112: Negative or not required by law. Electronically signed by: Marcial Aaron M.D. 10/21/2024 2:40 PM ECG Data Attestation: I personally reviewed and interpreted this ECG as follows: Rate (beats per minute): 128 Rhythm: + sinus tachycardia ECG Intervals/blocks: + Right Bundle branch block, + Normal QRS, + Normal RI and + Normal QT-c ECG ST segments: + Normal ST segments [facility] Narrative 1402: The patient was evaluated in room A1. A complete history and physical exam was performed Cardiac monitoring: An order was placed for continuous cardiac monitoring. The monitor shows a rate of 120 with sinus tachycardia rhythm interpreted by [place] Sepsis protocols initiated. 1420: External medical records reviewed. Patient was admitted from to October 08, 2024. She was admitted for acute hypoxic respiratory failure acute on chronic diastolic heart failure. While admitted the patient had 2 episodes of bradycardia and torsades. Echo showed an ejection fraction of 60 to 65%. QT prolonging was thought to be secondary to medications sertraline trazodone Lyrica all of which were discontinued. I-STAT shows potassium of 5.6. Given this patient be given calcium gluconate IV push. 1450: Lactic acid greater than 10. Unclear if this is truly because the patient's infection could be due to her hypoxia also. Patient with a history of CHF. Blood pressure is currently stable. Will hold off on fluids immediately. Cefepime ordered for the patient. 1530: Patient becoming hypotensive. 500 cc normal saline bolus ordered given the patient's history of CHF. 1600: Patient's blood pressure improved with 500 cc bolus. She became hypotensive again. Chest x-ray viewed by me shows possible right-sided infiltrate. Procalcitonin is elevated. Patient will be given additional liter normal saline bolus and maintenance fluids at 125 an hour. This was accomplished the 30 cc/kg normal saline fluid administration based off the patient's ideal body weight. Vancomycin will be ordered for the patient. Patient will be admitted to the [facility] team. Impression & Plan Sepsis, Hypoxia, Acute exacerbation of congestive heart failure, Hyperkalemia, Supratherapeutic INR Discharge Plan Visit Data Chief Complaint: Respiratory Distress ED Provider: Garrett Braden Discharge Problem: Sepsis, Hypoxia, Acute exacerbation of congestive heart failure, Hyperkalemia, Supratherapeutic INR Patient Disposition: Admitted As Inpatient Forms Stand Alone Forms: [facility] Prescriptions Prescriptions: No Action fluticasone propionate [Flonase Allergy Relief] 50 mcg/actuation [place],Suspension 2 spray INTRANASAL QAM metformin 1,000 mg tablet 1,000 mg PO BIDM warfarin 5 mg tablet 5 mg PO [id number]@1600 nitroglycerin [Nitrostat] 0.3 mg Tablet, Sublingual 0.3 mg sublingual .PRN/UD PRN (Reason: Chest Pain) Rx Instructions: NEDED FOR CHEST PAIN : ONE TABLET UNDER THE TONGUE EVERY 5 MINUTES UP TO THREE DOSES. albuterol sulfate [Ventolin HFA] 90 mcg/actuation Hfa Aerosol Inhaler 2 puff INHALATION QID PRN (Reason: Shortness Of Breath Or Wheezing) multivitamin [Daily-Moiz] Tablet 1 tab PO QAM Qty: 30 0RF cholecalciferol (vitamin D3) 25 mcg (1,000 unit) Capsule 1,000 unit PO QAM Qty: 30 0RF cyanocobalamin (vitamin B-12) 1,000 mcg Tablet, Sublingual 1,000 mcg SUBLINGUAL DAILY insulin aspart U-100 [Novolog U-100 Insulin aspart] 100 unit/mL solution See Rx Instructions .ROUTE .COMPLEX Rx Instructions: Aspart via Medtronic 780G insulin pump Basal: 6462-8754: 8 units/hr 6698-7668: 8 units/hr 8532-8542: 8.9 units/hr Total: 202.8 units Bolus: ISF: 10 ICR: 5 but uses preset dosing of 25 units with breakfast, 25 + 20 units with lunch, 25 + 15 units with supper BG Target: 100-140 rosuvastatin 20 mg tablet 20 mg PO QAM isosorbide mononitrate 60 mg tablet extended release 24 hr 60 mg PO QAM aspirin 81 mg Tablet,Delayed Release (Dr/Ec) 81 mg PO QAM potassium chloride 20 mEq tablet extended release 20 meq PO 3XWK Qty: 30 0RF Rx Instructions: Sunday, Sunday, and Sunday famotidine 40 mg tablet 40 mg PO DAILY furosemide 20 mg Tablet 20 mg PO QAM Qty: 30 0RF metoprolol succinate 25 mg Tablet Extended Release 24 Hr 12.5 mg PO QAM Qty: 15 0RF warfarin 5 mg tablet 10 mg PO SUTUTH@1600 Referrals Referrals: Natalia Heller PA-C [Primary Care Provider] -
[2024-10-21 16:29] LABS: Appearance Urine Cloudy (Clear); Bacteria Urine Automated 1+ (None Seen); Bilirubin Urine Negative (Negative); Blood Urine 3+ (Negative); Cast Urine Automated >20 /lpf (0-2); Color Urine Yellow; Glucose Urine UA Trace (Negative); Hyaline Casts Urine Present /lpf (None Presnt); Ketones Urine Trace (Negative); Leukocyte Esterase Urine Negative (Negative); Nitrite Urine Negative (Negative); Protein Urine 2+ (Negative); RBC Urine Automated >20 /hpf (0-2); Specific Gravity Urine 1.026 (1.000-1.030); Urobilinogen Urine Negative (Negative)
[2024-10-21] MEDS ORDERED: PHARMACY GLYCEMIC MGMT CONSULT PRN (16:36)
[2024-10-21] MEDS ORDERED: DKA GOAL RANGE 150-250 mg/dl ONE (16:36)
[2024-10-21] MEDS ORDERED: STAT IV Infusion **Titration per Protocol STA (16:36)
[2024-10-21 17:00] LABS: Calcium 8.7 mg/dl (8.6-10.3); Creatinine Clr Calc Pharmacy 43.9 ml/min; Potassium 4.3 mmol/L (3.5-5.1)
[2024-10-21 17:01] LABS: Troponin I High Sensitivity 697.3 pg/ml (0-14)
--- NOTE | 2024-10-21 17:05 | History & Physical Report ---
Date of Service October 21, 2024 Assessment & Plan (1) Severe sepsis: (2) Acute hypoxic respiratory failure: (3) DKA, type 2: (4) Lactic acidosis: (5) Chronic atrial fibrillation: (6) Supratherapeutic INR: (7) Elevated troponin: Plan This is a 74 yr old F who has a significant PMH of T2DM with oil heaterman insulin use uncontrolled, Diabetic polyneuropathy, Chronic HFpEF, HTN, HLD, COPD, Chronic atrial fibrillation anticoagulated on warfarin, GERD, B12 def, senile osteoporosis, hx of DVT, hx of breast ca, depression who presents to ED 2/2 worsening SOB x 4 days. Admitted 09/06-09/11 COPD exac 2/2 RSV. Admitted 09/26-10/08 2/2 acute hypoxic resp failure in setting of CHF Exac. Presenting today with severe sepsis and borderline shock #Suspected Severe sepsis, borderline Septic Shock #Lactic acidosis #Acute hypoxic respiratory failure Discussed with Steam Boiler Fireman will admit to ICU for close monitoring at this time unknown source of sepsis Received 2L of fluid bolus in ED with initial improvement in lactic acidosis, but now worsening back to 9 give additional 500ml fluid bolus and will reassess received broad spectrum IV antibiotics with Vanco/Cefepime Blood and urine cultures pending Resp biofire negative Urine not overtly impressive --CXR read as normal, but definite RLL infiltrate Procal 15.3 CT Chest/A/P w/o source of infection #Borderline DKA #uncontrolled T2DM insulin dependent on insulin pump #Diabetic polyneuropathy ABG PH normal, but pt with anion gap, low bicarb, hyperglycemic Insulin gtt protocol initiated in ED serial labs, accuchecks suspect playing part in the lactic acidosis last a1c 12.2 in September glycemic pharmacy consult #Hypomagnesemia mag 1.6, replace to keep > 2.0 given hx of torsades #Chronic atrial fibrillation #Supratherapeutic INR #CAD #hx of torsades de pointes hold warfarin, no evidence of bleeding #COPD does not appear in overt exac duonebs scheduled #DVT ppx: Supratherapeutic INR, warfarin on hold, repeat in a.m. DNR/DNI - discussed with pt and at bedside, they are okay with pressure support if needed PCP: Natalia Bañuelos Dispo: admit to ICU Pt was seen and examined in collaboration with Dr. Wright I spent a total of 90 minutes coordinating, documenting and providing care for this patient including 30 minutes of critical care time, excluding time spent in the performance of separately billed services or time spent by another provider/QHP. History of Present Illness Chief Complaint: Worsening SOB x 4 days. Primary Care Provider: Natalia Heller PA-C This is a 74 yr old F who has a significant PMH of T2DM with residential insulin use uncontrolled, Diabetic polyneuropathy, Chronic HFpEF, HTN, HLD, COPD, Chronic atrial fibrillation anticoagulated on warfarin, GERD, B12 def, senile osteoporosis, hx of DVT, hx of breast ca, depression who presents to ED 2/2 worsening SOB x 4 days. Her is at bedside who helps elicit history. Of significance pt was hospitalized 09/06-09/11 2/2 COPD exac in setting of RSV infection. She was treated with IV Rocephin, doxycycline and pulmonary toilet. She was also in DKA with a1c of 12.2. Echo done during that admission revealed ECHO: moderate concentric LVH. EF 60 to 65%. Focal area of akinesis involving the apical inferior wall. Aortic valve moderately calcified. Mild valvular aortic stenosis. Mild mitral, tricuspid regurgitation. Estimated systolic pulmonary pressure 46 mmHg. Grade 2 diastolic dysfunction. Her troponin was elevated which was felt in setting of demand ischemia. She was then re hospitalized 09/26-10/08 2/2 acute hypoxic respiratory failure in setting of CHF decompensation. She was diuresed and discharged on lasix 20mg daily and metoprolol succ 12.5mg daily. reports weight has been down and she has been weighing around 202-203lb. Her hospital course was complicated with torsades de pointes which was felt to be 2/2 qtc prolonging meds zoloft, trazodone, lyrica and electrolye abn. She was discharged home and doing okay. She has chronic SOB. reports over the weekend she was becoming more SOB and her BSG was in the 400-500s. He states he tried to bolus her insulin and have her eat more protein/less carbs, but it was still high. He also reports increased confusion. She reports a dry cough, feeling chilled/sweats, poor appetite and not feeling well. She reports today breathing got progressively worse so called EMS. She denies documented fever. She denies sick contacts. She denies chest pain, dizziness, lightheaded, n/v/d, abd pain, dysuria, increased urg/freq with urination, hematuria, melena or hematachezia. Pt presented via EMS febrile and hypoxic requiring bipap on arrival. She received a nebulizer treatment and solumedrol on arrival. In ED pt was hypotension, tachycardic and febrile. Her Lactate was > 10, her procal is 15, BNP 1156, trop was 674.8, UA with bacturia but no leuks or nitrites. Her resp biofire was negative. She has 1.5L bolused, started on maintenance fluids and received IV Vancomycin and cefepime for broad spectrum coverage. Allergies Allergy/AdvReac Type Severity Reaction Status Date / Time alendronate sodium Allergy Severe DIFFICULTY Verified 10/21/24 15:12 BREATHING/BURNING SENSATION esomeprazole Allergy Intermediate Hives Verified 10/21/24 15:12 Home Medications Medication Instructions Recorded Confirmed Type albuterol sulfate 90 mcg/actuation 2 puff inhalation QID PRN 01/12/20 10/21/24 History aerosol inhaler (Ventolin HFA) Shortness Of Breath Or Wheezing fluticasone propionate 50 2 spray intranasal QAM 01/12/20 10/21/24 History mcg/actuation nasal spray,suspension (Flonase Allergy Relief) metformin 1,000 mg tablet 1,000 mg PO BIDM 01/12/20 10/21/24 History nitroglycerin 0.3 mg sublingual 0.3 mg sublingual .PRN/UD PRN 01/12/20 10/21/24 History tablet (Nitrostat) Chest Pain warfarin 5 mg tablet 5 mg PO MOWEFRSA@1600 01/12/20 10/21/24 History cholecalciferol (vitamin D3) 25 1,000 unit PO QAM #30 caps 01/19/20 10/21/24 Rx mcg (1,000 unit) capsule multivitamin (Daily-Moiz tablet) 1 tab PO QAM #30 tabs 01/19/20 10/21/24 Rx cyanocobalamin (vitamin B-12) 1,000 mcg sublingual DAILY 09/21/22 10/21/24 History 1,000 mcg sublingual tablet aspirin 81 mg tablet,delayed 81 mg PO QAM 11/15/23 10/21/24 History release insulin aspart U-100 100 unit/mL See Rx Instructions .Route .COMPLEX 11/15/23 10/21/24 History subcutaneous solution (Novolog U-100 Insulin aspart) isosorbide mononitrate 60 mg 60 mg PO QAM 11/15/23 10/21/24 History tablet,extended release 24 hr rosuvastatin 20 mg tablet 20 mg PO QAM 11/15/23 10/21/24 History potassium chloride 20 mEq 20 meq PO 3XWK #30 tabs 11/17/23 10/21/24 Rx tablet,extended release famotidine 40 mg tablet 40 mg PO DAILY 09/05/24 10/21/24 History furosemide 20 mg tablet 20 mg PO QAM #30 tabs 10/08/24 10/21/24 Rx metoprolol succinate 25 mg 12.5 mg (1/2 x 25 mg) PO QAM #15 10/08/24 10/21/24 Rx tablet,extended release 24 hr tabs warfarin 5 mg tablet 10 mg PO SUTUTH@1600 10/21/24 10/21/24 History Past Med/Surg History Problem List (Updated 10/21/24 @ 17:13 by Virginia Ramos PA-C) Lactic acidosis Severe sepsis Hyperkalemia (Acute) Sepsis (Acute) SOB (shortness of breath) Chest pain at rest Cardiac arrest Prolonged QT interval Torsades de pointes GERD (gastroesophageal reflux disease) Diabetic polyneuropathy Hyperlipidemia Insulin dependent type 2 diabetes mellitus Depression Chronic atrial fibrillation Supratherapeutic INR (Acute) Elevated troponin Acute on chronic diastolic heart failure Acute hypoxic respiratory failure Subtherapeutic international normalized ratio (INR) Paroxysmal atrial fibrillation Elevated troponin I level Demand ischemia of myocardium DKA, type 2 (Acute) RSV (acute bronchiolitis due to respiratory syncytial virus) (Acute) COPD exacerbation COVID (Acute) Pseudohyponatremia Hyperkalemia ASCVD (arteriosclerotic cardiovascular disease) Hypertensive urgency Respiratory distress Flash pulmonary edema (Acute) Hypertensive emergency (Acute) Hypotension Hypotension Hypoxia, sleep related UTI due to Klebsiella species HTN (hypertension) Acute exacerbation of congestive heart failure (Acute) Diastolic heart failure Ankle fracture, bimalleolar, closed Discharge planning issues DVT prophylaxis Anemia Chronic anticoagulation (Chronic) Dyslipidemia (Chronic) Asthma (Chronic) COPD (chronic obstructive pulmonary disease) (Chronic) Brittany-prosthetic fracture around prosthetic knee Congestive heart failure (Chronic) diastolic; LVEF by echo 01/13/20 70% Acute diastolic (congestive) heart failure Hypoxia (Acute) Osteoporosis Diabetes mellitus type 2, uncontrolled Coronary artery disease Atrial fibrillation (Acute) Microvascular angina DM type 2 (diabetes mellitus, type 2) (Chronic) Medical History Benign neoplasm of colon Osteoarthritis History of DVT (deep vein thrombosis) "RLE x 2 in " 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) "Abnormal left breast mammogram 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 Estrogen receptor positive and progesterone receptor positive Status post lumpectomy with sentinel lymph node biopsy stage [id number] 04/07/2015 Status post completion of radiation therapy 07/21/2015 received 6640 cGy" On 07/25/15 17:54 Jayleen Bates wrote "Abnormal left breast mammogram 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 Estrogen receptor positive and progesterone receptor positive Status post lumpectomy with sentinel lymph node biopsy stage [id number] 04/07 Status post completion of radiation therapy 07/21/2015 received 6640 cGy" On 07/25/15 17:49 Jaylene Bates wrote "Abnormal left breast mammogram 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 Estrogen receptor positive and progesterone receptor positive Status post lumpectomy with sentinel lymph node biopsy stage [id number] 04/07/2015" Surgical History H/O partial mastectomy "left breast 04/2015 with lymph node biopsy" H/O arthroscopic knee surgery H/O colonoscopy History of carpal tunnel surgery S/P cervical spinal fusion S/P dilation and curettage H/O vein stripping Family History Other Breast cancer Diabetes Heart disease Social History Smoking Status: Never smoker Tobacco Type: Cigarettes Second Hand Exposure: No; Do You Dip or Chew Tobacco: No; Hx Alcohol Use: No Hx Substance Use: No Preferred Language: Sinhala Communication Ability: Effective Instructional Technology Director Required: No Beliefs That Will Affect Care: None Current Living Situation: Family Current Living Situation Comment: lives at home with and step-son Feels Safe at Home: Yes Assistive Devices: Walker Review of Systems Review of Systems: All systems reviewed & are unremarkable except as noted in HPI & below Physical Exam Physical Exam: Constitutional: acute ill, toxic female, vitals as above, NAD, sitting up in bed, pleasant, conversing easily +bipap Head: Normocephalic, Atraumatic Eyes: PERRL, conjunctivae normal, anicteric sclerae ENMT: external ear and nose normal, oropharynx dry +Bipap Neck: trachea midline, no thyromegaly normal visual inspection Respiratory: normal respiratory effort, lungs clear to auscultation, no wheeze, rales, rhonchi. Normal insp/exp effort, no accessory muscle use Cardiovascular: IRR/IRR, no murmur, no edema Vessels: no JVD or carotid bruit Chest: normal inspection of chest Abdomen: normal bowel sounds, distended, soft, nontender, no hepatosplenomegaly Musculoskeletal: no cyanosis or clubbing, extremities motor strength 5/5 Skin: no rashes, warm and dry normal turgor Neurologic: PERRL, EOMI, accommodation nl, no face palsy, no dysarthria CN's II-XI intact bilaterally and moves all extremities Psychiatric: A+Ox3, euthymic affect Lymphatic: no cervical or axillary lymphadenopathy : ortega cath with yellow urine Results & Data Results & Data Vital Signs (Past 12 Hours) Vital Signs Temp Pulse Pulse Resp BP BP Pulse Ox 10/21/24 16:11 38.2 C H 10/21/24 16:00 100 H 23 112/61 99 10/21/24 15:54 100 H 26 H 100/61 100 10/21/24 15:50 98 H 26 H 97/64 L 100 10/21/24 15:45 99 H 24 103/63 100 10/21/24 15:35 99 H 26 H 99/59 L 100 10/21/24 15:30 98 H 24 100/53 L 100 10/21/24 15:25 99 H 24 98/52 L 100 10/21/24 15:15 96/56 L 10/21/24 15:10 104 H 24 92/64 L 100 10/21/24 15:05 39.2 C H 107 H 26 H 90/51 L 100 10/21/24 15:00 111 H 20 101/55 L 100 10/21/24 15:00 39.1 C H 110 H 21 101/55 L 100 10/21/24 14:47 39 C H 108 H 20 78/49 L 100 10/21/24 14:32 102 H 20 96/53 L 99 10/21/24 14:27 128 H 28 H 100 10/21/24 14:26 128 H 10/21/24 14:02 100 10/21/24 13:47 100 10/21/24 13:47 37.7 C H 133 H 24 132/89 100 10/21/24 13:47 O2 Del Method FiO2 10/21/24 16:11 10/21/24 16:00 10/21/24 15:54 10/21/24 15:50 10/21/24 15:45 10/21/24 15:35 10/21/24 15:30 10/21/24 15:25 10/21/24 15:15 10/21/24 15:10 BiPAP 10/21/24 15:05 BiPAP 10/21/24 15:00 BiPAP 10/21/24 15:00 BiPAP 10/21/24 14:47 BiPAP 10/21/24 14:32 BiPAP 10/21/24 14:27 60 10/21/24 14:26 10/21/24 14:02 BiPAP 10/21/24 13:47 BiPAP 10/21/24 13:47 BiPAP 10/21/24 13:47 BiPAP Laboratory Results I have independently reviewed and interpreted patient's admitting labs including CBC, CMP, PTT, PT/INR, mag, abg, lactic acid, and troponin. Diagnostic Findings Chest X-Ray 10/21/24 14:02 XR chest 1V portable CLINICAL HISTORY: Sepsis COMPARISON STUDY: 10/05/2024 FINDINGS: There are mitral valvular calcifications. There is stable moderate cardiomegaly without pulmonary vascular congestion. No effusion, consolidation, or pneumothorax. IMPRESSION: No acute findings. ACT 112: Negative or not required by law. Electronically signed by: Marcial Aaron M.D. 10/21/2024 2:40 PM Medications Administered Medication List Sodium Chloride (Nss) 500 mls @ 125 mls/hr IV .Q4H RAQUEL Stop: 10/21/24 18:59 Last Admin: 10/21/24 15:04 Dose: 125 mls/hr Documented By: NIGEL Vancomycin HCl 2,000 mg/ (Sodium Chloride) 540 mls @ 200 mls/hr IV NOW ONE Stop: 10/21/24 17:46 Last Admin: 10/21/24 15:45 Dose: 200 mls/hr Documented By: AMERICO Discontinued Medications Calcium Gluconate () 1,000 mg in 60 mls @ 240 mls/hr IV NOW STA Stop: 10/21/24 14:25 Last Infusion: 10/21/24 14:29 Dose: Infused Documented By: Admin: 10/21/24 14:14 Dose: 240 mls/hr Documented By: NIGEL Cefepime HCl (Maxipime 2000mg) 2,000 mg in 20 mls @ 5 mls/min IV NOW STA; Protocol Stop: 10/21/24 14:25 Last Admin: 10/21/24 14:51 Dose: 5 mls/min Documented By: AMERICO Sodium Chloride (Nss) 500 mls @ 999 mls/hr IV .Q31M ONE Stop: 10/21/24 15:17 Last Infusion: 10/21/24 15:31 Dose: Infused Documented By: Admin: 10/21/24 14:59 Dose: 999 mls/hr Documented By: NIGEL Sodium Chloride (Nss) 1,000 mls @ 999 mls/hr IV .Q1H1M ONE Stop: 10/21/24 16:08 Last Infusion: 10/21/24 16:14 Dose: Infused Documented By: Admin: 10/21/24 15:10 Dose: 999 mls/hr Documented By: NIGEL Code Status & VTE Plan Code Status DNR/DNI Supervising Physician Co-Signing Physician Notes Patient seen and examined at bedside. Patient on bipap, appears to be very SOB. Per , patient has been having high blood sugars for past few days, up to 500s, usually in 300s. States she has steadily been becoming more and more SOB. Has had cough recently. Denies pain in abdomen, nausea, vomiting, diarrhea. On exam, accessory muscle use noted, poor cap refill (noted initially, improved with fluids), dry mucous membranes, minimal to no urine output, tachycardic with regular rhythm, lungs not remarkable on exam. Tachycardic, tachypneic, febrile, significant left shift without leukocytosis, ABG with respiratory alkalosis, el evated AG, elevated glucose in the 400s, creatinine uptrending up, troponin in 600s likely reactive to hypoxia and stress, elevated procal of 1. Presentation concerning for severe sepsis with shock and bacteremia, only partially fluid responsive. However, CT imaging of lung, abdomen, pelvis failed to reveal source of infectious etiology, UA unimpressive. Current working diagnosis is severe DKA with acute hypoxic respiratory failure 2/2 compensation for significant metabolic acidosis. Procal could be elevated in setting of severe DKA. Shock is likely secondary to profound dehydration and ongoing DKA. Of note, patient does have cirrhosis so lactic acidosis may be skewed in setting of liver disease; however would not expect this profound acidosis from simply DKA and cirrhosis causing decreased clearance. Other sources of bacteremia would include meningitis and soft tissue infections; however, exam does suggest either etiology (no neck stiffness/confusion or significant wounds). Troponin likely reactive to severe systemic disease. Nondowntrending lactic acidosis is poor prognostic indicator and could be indicator of worsening disease. May be going into renal failure given very low urine output. Treat aggressively with fluids, broad spectrum abx empirically for 24-48 hours, insulin drip and DKA protocol initiated. Will need monitored in ICU setting given non-downtrending lactic acidosis, borderline requirement of vasopressors. May require vasopressors in near future, has received 3 liters of fluids. Downtrend lactic acid and troponins, if troponins skyrocket will get ECG and consideration for heparin drip. Of note, discussed code status with patient and , risks and benefits discussed at length, patient would be ok with limited trial of vasopressors and noninvasive ventilation, but does not want intubated or chest compressions. DNRDNI with pressors and noninvasive ventilation. I have seen and discussed the case with the collaborating advanced practitioner. I agree with the above H&P. I have reviewed and confirmed the patients medical history, the findings on physical examination, and the patients diagnosis and treatment plan with Virginia Ramos PA-C and agree with the information documented. I spent a total of 20 minutes coordinating, documenting, and providing care for this patient excluding time spent in the performance of separately billed services. All of the aforementioned completed outside of collaborating with the assigned advanced practitioner for a full treatment plan. I have reviewed the advanced practitioner's documentation, and I agree with, and take responsibility for the plan of care
[2024-10-21] MEDS: OPTIRAY 320 100ml IV ONE (17:26)
[2024-10-21] MEDS: INSULIN REGULAR 250 UNITS in SODIUM CHLORIDE 0.9% 247.5 ML IV SCH ×2 (17:34→21:51)
[2024-10-21] MEDS: NovoLIN-R BOLUS FROM BAG IV ONE (17:34)
[2024-10-21] MEDS: PENDING 1/2NSS+20mEq KCL IVF SCH (17:59)
[2024-10-21] MEDS: MAGNESIUM SULFATE / D5W 1 GM/100 ML BAG IV SCH (18:01)
--- NOTE | 2024-10-21 18:04 | CT Scan Report ---
INDICATION: Shortness of breath. Abdominal pain. COMPARISON: No relevant priors available. TECHNIQUE: Axial CT images of the chest, abdomen and pelvis were obtained. Postcontrast CT chest images. Pre and postcontrast CT abdomen pelvis images obtained. Coronal and sagittal reformations were reviewed. FINDINGS: Chest: The thoracic aorta appears normal in caliber. The heart is mildly enlarged. No pericardial or pleural effusion. No pneumothorax. No pathologically enlarged mediastinal or hilar lymph nodes. No pulmonary consolidation. No acute osseous abnormality evident. Abdomen and pelvis: Gallstones in the gallbladder. The liver is cirrhotic. No hepatic mass identified. Mild splenomegaly. This pancreas and adrenal glands appear unremarkable. No hydronephrosis. A few small renal cysts noted. No renal calculus. No evidence of bowel obstruction/colitis/appendicitis. No free air. No drainable fluid collection. Negative for abdominal aortic aneurysm or dissection. There is a Cisneros catheter in the urinary bladder. No acute osseous abnormality evident. IMPRESSION: 1. No acute process in the chest. 2. Cirrhosis. 3. Splenomegaly. 4. Cholelithiasis. Electronically signed by Sarath Ray 10-21-2024 6:04 PM
[2024-10-21] MEDS: INSULIN ASPART PER UNIT CHARGE SC SCH (18:44)
[2024-10-21] MEDS: PENDING D5 1/2NS+20mEq KCL IVF SCH (18:44)
[2024-10-21 18:55] LABS: Hematocrit (blood only) 25.9 % (37.0-47.0); Hemoglobin 8.2 g/dl (12.0-16.0); Mean Corpuscular Hemoglobin 28.7 pg (25.0-34.0); Mean Corpuscular Hgb Conc 31.7 g/dL (32.0-36.0); Mean Corpuscular Volume 90.6 fL (80.0-100.0); Mean Platelet Volume 11.7 fL (9.4-12.4); Platelet Count 136 K/uL (130-400); RDW Coefficient of Variation 15.4 % (11.5-14.5); RDW Standard Deviation 51.7 fL (36.4-46.3); Red Blood Count 2.86 M/uL (4.20-5.40); White Blood Count 16.97 K/ul (4.8-10.8)
[2024-10-21 19:10] LABS: Basophils # (auto) 0.04 K/uL (0.00-0.20); Basophils % (auto) 0.2 %; Immature Granulocytes # (auto) 0.08 K/uL (0.01-0.20); Immature Granulocytes % (auto) 0.5 %; Lymphocytes # (auto) 0.32 K/uL (1.20-3.40); Lymphocytes % (auto) 1.9 %; Monocytes # (auto) 0.35 K/uL (0.11-0.59); Monocytes % (auto) 2.1 %; Neutrophils # (auto) 16.18 K/uL (1.40-6.50); Neutrophils % (auto) 95.3 %
[2024-10-21] MEDS ORDERED: INSULIN REGULAR 250 UNITS in SODIUM CHLORIDE 0.9% 247.5 ML IV SCH (19:15)
--- NOTE | 2024-10-21 19:53 | Critical Care Consultation ---
Date of Consultation October 21, 2024 Assessment & Plan (1) Septic shock: (2) Lactic acidosis: (3) Hyperlipidemia: (4) Insulin dependent type 2 diabetes mellitus: (5) Chronic atrial fibrillation: (6) Supratherapeutic INR: (7) Elevated troponin: (8) Acute hypoxic respiratory failure: Plan Reason Critically Ill: 74 YOF presents with septic shock, with organ dysfunction, metabolic and lactic acidosis likely complicated by starvation ketosis and metformin use. Neuro - No acute needs at this time [facility] ICU: Negative Cardiac - Shock- multifactorial, elevated HsCTNI, Hx of AFIB, HTN - Shock - multifactorial to include hypovolemia as well as distributive - She is with base deficit of -11 on arrival- has received 2.5 L crystalloid with improvement in her HR and BP - She met SIRS criteria on admission with source as urinary by her UA- Continue with volume challenges as well as broad spectrum abx - add vasopressors on if needing hemodynamic support - re-evaluate perfusion status with end organ labs, lactate, urine output and POCUS - POCUS on arrival to the ICU is without pericardial effusion, garcia appear to be ken well, IVC is collapsable - resuscitate with plasmalyte at this time - Elevated HsCTNI- this has downtrended following pulmonary and cardiovascular supportive care- likely type II demand in setting of acidosis and shock - ECG reviewed without STEMI Respiratory - Hypoxic respiratory failure - At this time likely related to compensation from her metabolic disorders leading to hyperventilation and then hypoxia- she is currently on room air - Doubt PE a this time as patient is on chronic warfarin and is suprather apeutic on this- and she is currently without oxygen need. - She likely has a component of obesity hypoventilation and possibly SHAKIRA as well as noting her chronically elevated bicarb- could consider ABG in morning following correction of her current disorders. - CT oc chest without opacities, pthx, or pericardial/plueral effusion GI - No acute needs - gallstones noted on ultrasound- without dilated CBD or GB and without obstructive pattern on labs - follow RENAL/LYTES - Metabolic Acidosis, lactic acidosis, SOL, electrolyte disturbances - Metabolic acidosis - likely secondary to starvation ketosis - she is currently with preserved PH - and glucose moderately elevated at 400- NA normal - Continue with crystalloid infusion - WIll change insulin infusion to standard dose - adjust therapy if warranted- currently with mild gap acidosis- which is likely just secondary to her elevated lactate - Lactic acidosis secondary to hypovolemia as well as hypoperfusion - this may also be complicated by metformin use at home in setting of ketosis. - continue to trend- downtrending at this time from 9 to 6.7- provide bolus of plasmalyte and then infusion - Serum osmo and urine osmo pending - UTI complicated- see ID section - continue ortega catheter for now ENDO - DMII - as above- she is hyperglycemic but with preserved PH and normal NA level even with correction - standard adult insulin infusion for now goal 110-220- which currently will not change rate - borderline and likely secondary to ketosis- can more closely follow HHS with a slower correction - current insulin rate 11 units per hour- 0.125 units/kg/hour - likely to correct with replacement of intervascular volume as well - Continue to trend PH and HCO3 and adjust therapy as warranted HEME -supratherapeutic INR - Likely secondary to her dietary intake- as reports not eating past 3-5 days - Hold warfarin at this time- follow daily INR- if anticoag needed consider transition to heparin infusion ID - septic shock - secondary to UTI at this time seems most likely- continue to evaluate for possible other sources - continue with resuscitation - re-eval hemodynamics/perfusion as above - continue broad spectrum abx. LINES/IV ACCESS - PIV, Ortega Continue use of these lines DVT PROPHYLAXIS - SCDS, Warfarin - add back warfarin when INR in range DISPO: ICU until hemodynamics and respiratory status proven stable I have personally spent 35 minutes of critical care time in the direct management of this patient. This is a life/limb threatening event. This includes time spent evaluating patient, direct bedside care, chart review, placing orders, interpretation of diagnostic studies, discussion with consultants, patient, and family members, as well as other required patient management activities. This time is exclusive of all separately billable procedures, and teaching time and separate from and in addition to any other critical care service time. Thank you for allowing us to participate in the care of this patient. Please refer to my attending physician's documentation for any further recommendations. History of Present Illness Reason for Consultation: septic shock Requesting Physician: kalen Attending Physician: Dioni Wright MD History of Present Illness 74 YOF presents to the ICU for concerns of septic shock with possibility of requiring vasopressors. Patient reports that she came to the ER today for concerns of dyspnea. She states that this has been ongoing for the past 5-7 days, where she has just been feeling tired, having fevers and chills, and has had increase in her dyspnea. She states that she has not been eating or drinking for the past 3-4 days because she did not have the energy, but she continued to take her medications. She also reports that she is on warfarin for history of afib and DVTs in her legs. Patient feels that she is improved since coming in. In the ER the patient was noted to be tachypneic, tachycardic, and BP with MAPS >65 but with SBP in the 90s. She had routine labs collected to include, Blood cx, urine cx, lactate, PCT, HsCTNI, and VBG. Patient was felt to be septic and was given 2.5 L of crystalloid and initiated on braod spectrum anbitiiotics. She had non contrast CT scans of her chest and abd/pelvis- both without acute pathology noted, she is with gallstones in her gallbladder, without any dilation of her CBD or GB interpreted. Patient was transferred to the ICU noting, hyperglycemia, compensated mixed respiratory and metabolic acidosis, and organ dysfunction of elevated troponin, SOL, and electrolyte disturbances. She was initiated on the DKA/HHS protocol by admitting service, has been weaned off of biPAP and is on room air at this time as well as not requiring vasopressors. Patient will continue be monitored in the ICU will transition standard insulin infusion as well as continue to replete volume status. CODE: DNR/DNI Allergies Allergy/AdvReac Type Severity Reaction Status Date / Time alendronate sodium Allergy Severe DIFFICULTY Verified 10/21/24 15:12 BREATHING/BURNING SENSATION esomeprazole Allergy Intermediate Hives Verified 10/21/24 15:12 Home Medications Medication Instructions Recorded Confirmed Type albuterol sulfate 90 mcg/actuation 2 puff inhalation QID PRN 01/12/20 10/21/24 History aerosol inhaler (Ventolin HFA) Shortness Of Breath Or Wheezing fluticasone propionate 50 2 spray intranasal QAM 01/12/20 10/21/24 History mcg/actuation nasal spray,suspension (Flonase Allergy Relief) metformin 1,000 mg tablet 1,000 mg PO BIDM 01/12/20 10/21/24 History nitroglycerin 0.3 mg sublingual 0.3 mg sublingual .PRN/UD PRN 01/12/20 10/21/24 History tablet (Nitrostat) Chest Pain warfarin 5 mg tablet 5 mg PO MOWEFRSA@1600 01/12/20 10/21/24 History cholecalciferol (vitamin D3) 25 1,000 unit PO QAM #30 caps 01/19/20 10/21/24 Rx mcg (1,000 unit) capsule multivitamin (Daily-Moiz tablet) 1 tab PO QAM #30 tabs 01/19/20 10/21/24 Rx cyanocobalamin (vitamin B-12) 1,000 mcg sublingual DAILY 09/21/22 10/21/24 History 1,000 mcg sublingual tablet aspirin 81 mg tablet,delayed 81 mg PO QAM 11/15/23 10/21/24 History release insulin aspart U-100 100 unit/mL See Rx Instructions .Route .COMPLEX 11/15/23 10/21/24 History subcutaneous solution (Novolog U-100 Insulin aspart) isosorbide mononitrate 60 mg 60 mg PO QAM 11/15/23 10/21/24 History tablet,extended release 24 hr rosuvastatin 20 mg tablet 20 mg PO QAM 11/15/23 10/21/24 History potassium chloride 20 mEq 20 meq PO 3XWK #30 tabs 11/17/23 10/21/24 Rx tablet,extended release famotidine 40 mg tablet 40 mg PO DAILY 09/05/24 10/21/24 History furosemide 20 mg tablet 20 mg PO QAM #30 tabs 10/08/24 10/21/24 Rx metoprolol succinate 25 mg 12.5 mg (1/2 x 25 mg) PO QAM #15 10/08/24 10/21/24 Rx tablet,extended release 24 hr tabs warfarin 5 mg tablet 10 mg PO SUTUTH@1600 10/21/24 10/21/24 History Patient History Medical History Benign neoplasm of colon Osteoarthritis History of DVT (deep vein thrombosis) "RLE x 2 in 1980s" 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) "Abnormal left breast mammogram 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 Estrogen receptor positive and progesterone receptor positive Status post lumpectomy with sentinel lymph node biopsy stage [id number] 04/07/2015 Status post completion of radiation therapy 07/21/2015 received 6640 cGy" On 07/25/15 17:54 Jayleen Bates wrote "Abnormal left breast mammogram 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 Estrogen receptor positive and progesterone receptor positive Status post lumpectomy with sentinel lymph node biopsy stage [id number] 04/07/2015 Status post completion of radiation therapy 07/21/2015 received 6640 cGy" On 07/25/15 17:49 Jayleen Bates wrote "Abnormal left breast mammogram 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 Estrogen receptor positive and progesterone receptor positive Status post lumpectomy with sentinel lymph node biopsy stage [id number] 04/07/2015" Surgical History H/O partial mastectomy "left breast 04/2015 with lymph node biopsy" H/O arthroscopic knee surgery H/O colonoscopy History of carpal tunnel surgery S/P cervical spinal fusion S/P dilation and curettage H/O vein stripping Family History Other Breast cancer Diabetes Heart disease Social History Smoking Status: Former smoker Tobacco Type: Cigarettes Second Hand Exposure: No; Do You Dip or Chew Tobacco: No; Hx Alcohol Use: No Hx Substance Use: No Preferred Language: Yemeni Communication Ability: Effective 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: No Beliefs That Will Affect Care: None Current Living Situation: Family Current Living Situation Comment: lives at home with and step-son Other Information That Helps Us Care for You: No Feels Safe at Home: Yes Safety Concerns: Feels Safe At This Time Assistive Devices: Denture - Upper and Walker Review of Systems Review of Systems: REVIEW OF SYSTEMS: Constitutional: (+) chills/sweats, generalized malaise, no documented fever Eyes: No diplopia, no worsening or blurred vision ENT: normal hearing, no trouble swallowing Respiratory: (+) dyspnea, nonproductive cough, Cardiovascular: No chest pain, tightness or palpitations Abdomen: No pain, nausea, vomiting, diarrhea or constipation Musculoskeletal: No joint pain, calf pain, swelling Neurologic: No weakness, numbness/tingling, or balance problems Psychiatric: No anxiety or depression Skin: No rash or itch Physical Exam Physical Exam: PHYSICAL EXAM: General: awake, alert, no apparent distress Head: Normocephalic, atraumatic ENT: PERRL, EOMI, no pharyngeal exudate, mucous membranes dry Neuro: AAO x 3, speech clear and appropriate, strength intact bilaterally 5/5, sensation intact and equal all extremities and dermatomes, no pronator drift Chest: equal rise and fall of the chest, no accessory muscle use, no heaves or thrills, Clear to auscultation, on room air, Cardiac: Regular rate and rhythm, telemetry reviewed- NSR, skin warm dry, cap refill <3 seconds, peripheral pulses +2 no JVD, no murmur, no JVD, no edema GI: NABS x 4 quadrants, soft, nontender to palpation, no rebound, guarding or tenderness : Spontaneously voiding, no pain, no CVA tenderness, Extremities: Normal inspection, no peripheral edema or erythema, calfs nontender to palpation Psych: Normal mood and affect Skin: no rash or erythema Results & Data Results & Data Vital Signs (Past 12 Hours) Vital Signs Temp Pulse Pulse Resp BP BP Pulse Ox 10/21/24 18:39 37.5 C 105 H 20 104/61 95 10/21/24 18:33 37.5 C 99 H 33 H 96 10/21/24 18:30 104/61 10/21/24 18:30 104/61 10/21/24 18:29 104/59 L 10/21/24 18:03 37.5 C 10/21/24 18:00 101 H 31 H 106/56 L 98 10/21/24 17:45 99 H 29 H 128/61 99 10/21/24 17:40 106/61 10/21/24 17:15 106 H 26 H 111/78 100 10/21/24 17:10 106 H 26 H 99/62 L 100 10/21/24 17:05 106 H 26 H 121/60 100 10/21/24 16:55 108 H 27 H 120/78 100 10/21/24 16:40 109 H 20 103/59 L 100 10/21/24 16:20 105 H 24 107/71 100 10/21/24 16:15 115 H 31 H 113/67 100 10/21/24 16:11 38.2 C H 10/21/24 16:10 115 H 23 111/65 100 10/21/24 16:00 100 H 23 112/61 99 10/21/24 15:54 100 H 26 H 100/61 100 10/21/24 15:50 98 H 26 H 97/64 L 100 10/21/24 15:45 99 H 24 103/63 100 10/21/24 15:35 99 H 26 H 99/59 L 100 10/21/24 15:30 98 H 24 100/53 L 100 10/21/24 15:25 99 H 24 98/52 L 100 10/21/24 15:15 96/56 L 10/21/24 15:10 104 H 24 92/64 L 100 10/21/24 15:05 39.2 C H 107 H 26 H 90/51 L 100 10/21/24 15:00 111 H 20 101/55 L 100 10/21/24 15:00 39.1 C H 110 H 21 101/55 L 100 10/21/24 14:47 39 C H 108 H 20 78/49 L 100 10/21/24 14:32 102 H 20 96/53 L 99 10/21/24 14:27 128 H 28 H 100 10/21/24 14:26 128 H 10/21/24 14:02 100 10/21/24 13:47 100 10/21/24 13:47 37.7 C H 133 H 24 132/89 100 10/21/24 13:47 O2 Del Method O2 Flow Rate FiO2 10/21/24 18:39 Room Air 10/21/24 18:33 10/21/24 18:30 10/21/24 18:30 10/21/24 18:29 10/21/24 18:03 10/21/24 18:00 Oxymask 6 10/21/24 17:45 Oxymask 6 10/21/24 17:40 10/21/24 17:15 Oxymask 6 10/21/24 17:10 BiPAP 10/21/24 17:05 BiPAP 10/21/24 16:55 BiPAP 10/21/24 16:40 BiPAP 10/21/24 16:20 BiPAP 10/21/24 16:15 BiPAP 10/21/24 16:11 10/21/24 16:10 10/21/24 16:00 10/21/24 15:54 10/21/24 15:50 10/21/24 15:45 10/21/24 15:35 10/21/24 15:30 10/21/24 15:25 10/21/24 15:15 10/21/24 15:10 BiPAP 10/21/24 15:05 BiPAP 10/21/24 15:00 BiPAP 10/21/24 15:00 BiPAP 10/21/24 14:47 BiPAP 10/21/24 14:32 BiPAP 10/21/24 14:27 60 10/21/24 14:26 10/21/24 14:02 BiPAP 10/21/24 13:47 BiPAP 10/21/24 13:47 BiPAP 10/21/24 13:47 BiPAP Laboratory Results Abnormal lab results 10/21/24 10/21/24 10/21/24 Range/Units 14:06 14:07 14:09 WBC (4.8-10.8) K/ul RBC 3.58 L (4.20-5.40) M/uL Hgb 10.3 L (12.0-16.0) g/dl POC Hgb 10.9 L (12.0-16.0) g/dl Hct 31.9 L (37.0-47.0) % POC Hct 32 L (37-47) % MCHC (32.0-36.0) g/dL RDW Std Deviation 49.2 H (36.4-46.3) fL RDW Coeff of Katrin 15.1 H (11.5-14.5) % Neut # (Auto) 9.82 H (1.40-6.50) K/uL Lymph # (Auto) 0.35 L (1.20-3.40) K/uL ESR (0-30) mm/hr PT 39.4 H (9.0-12.0) Seconds INR 4.1 H (0.9-1.1) APTT 39 H (21-31) Seconds POC pCO2 (35-46) mmHg POC pO2 (80-95) mmHg POC HCO3 (19-24) meño/L POC Base Excess (-9-1.8) meño/L POC ABG O2 Sat (90-95) % POC Sodium 133 L (135-144) mmol/L Sodium 134 L (136-145) mmol/L POC Potassium 5.6 H (3.3-5.0) mmol/L Potassium 5.5 H (3.5-5.1) mmol/L Carbon Dioxide 19 L (21-32) mmol/L POC Total CO2 17 L (24-31) mmol/L Anion Gap 17 H (3-11) POC BUN 25 H (7-18) mg/dl BUN 27 H (6-23) mg/dl Creatinine (0.6-1.2) mg/dl BUN/Creatinine Ratio 23.3 H (10-20) Glucose 467 H* (70-99(Fasting)) mg/dl POC Glucose 447 H* (70-99) mg/dl POC Glucose (other) 426 H* (70-99) mg/dl Lactate 10.7 H* (0.4-2.0) mmol/L Magnesium 1.6 L (1.7-2.4) mg/dl Direct Bilirubin 0.3 H (0-0.2) mg/dl AST 44 H (13-39) U/L Alkaline Phosphatase 173 H (34-104) U/L Troponin I High Sens 674.8 H* (0-14) pg/ml B-Natriuretic Peptide (0-100) pg/ml Procalcitonin 15.30 H (0-0.5) ng/ml Urine Appearance (Clear) Urine Protein (Negative) Urine Glucose (UA) (Negative) Urine Ketones (Negative) Urine Blood (Negative) Urine WBC (Auto) (0-5) /hpf Urine RBC (Auto) (0-2) /hpf U Hyaline Cast (Auto) (0-2) /lpf U Epithel Cells (Auto) (0-2) /hpf Urine Bacteria (Auto) (None Seen) Hyaline Casts (None Presnt) /lpf 10/21/24 10/21/24 10/21/24 Range/Units 14:16 14:40 15:49 WBC (4.8-10.8) K/ul RBC (4.20-5.40) M/uL Hgb (12.0-16.0) g/dl POC Hgb 10.2 L (12.0-16.0) g/dl Hct (37.0-47.0) % POC Hct 30 L (37-47) % MCHC (32.0-36.0) g/dL RDW Std Deviation (36.4-46.3) fL RDW Coeff of Katrin (11.5-14.5) % Neut # (Auto) (1.40-6.50) K/uL Lymph # (Auto) (1.20-3.40) K/uL ESR (0-30) mm/hr PT (9.0-12.0) Seconds INR (0.9-1.1) APTT (21-31) Seconds POC pCO2 22 L (35-46) mmHg POC pO2 268 H (80-95) mmHg POC HCO3 14 L (19-24) meño/L POC Base Excess -10.0 L (-9-1.8) meño/L POC ABG O2 Sat 100.0 H (90-95) % POC Sodium 130 L (135-144) mmol/L Sodium (136-145) mmol/L POC Potassium (3.3-5.0) mmol/L Potassium (3.5-5.1) mmol/L Carbon Dioxide (21-32) mmol/L POC Total CO2 15 L (24-31) mmol/L Anion Gap (3-11) POC BUN (7-18) mg/dl BUN (6-23) mg/dl Creatinine (0.6-1.2) mg/dl BUN/Creatinine Ratio (10-20) Glucose (70-99(Fasting)) mg/dl POC Glucose (70-99) mg/dl POC Glucose (other) (70-99) mg/dl Lactate 7.7 H* (0.4-2.0) mmol/L Magnesium (1.7-2.4) mg/dl Direct Bilirubin (0-0.2) mg/dl AST (13-39) U/L Alkaline Phosphatase (34-104) U/L Troponin I High Sens (0-14) pg/ml B-Natriuretic Peptide 1156 H (0-100) pg/ml Procalcitonin (0-0.5) ng/ml Urine Appearance (Clear) Urine Protein (Negative) Urine Glucose (UA) (Negative) Urine Ketones (Negative) Urine Blood (Negative) Urine WBC (Auto) (0-5) /hpf Urine RBC (Auto) (0-2) /hpf U Hyaline Cast (Auto) (0-2) /lpf U Epithel Cells (Auto) (0-2) /hpf Urine Bacteria (Auto) (None Seen) Hyaline Casts (None Presnt) /lpf 10/21/24 10/21/24 10/21/24 Range/Units 16:11 16:21 16:21 WBC (4.8-10.8) K/ul RBC (4.20-5.40) M/uL Hgb (12.0-16.0) g/dl POC Hgb (12.0-16.0) g/dl Hct (37.0-47.0) % POC Hct (37-47) % MCHC (32.0-36.0) g/dL RDW Std Deviation (36.4-46.3) fL RDW Coeff of Katrin (11.5-14.5) % Neut # (Auto) (1.40-6.50) K/uL Lymph # (Auto) (1.20-3.40) K/uL ESR (0-30) mm/hr PT (9.0-12.0) Seconds INR (0.9-1.1) APTT (21-31) Seconds POC pCO2 (35-46) mmHg POC pO2 (80-95) mmHg POC HCO3 (19-24) meño/L POC Base Excess (-9-1.8) meño/L POC ABG O2 Sat (90-95) % POC Sodium (135-144) mmol/L Sodium 134 L (136-145) mmol/L POC Potassium (3.3-5.0) mmol/L Potassium (3.5-5.1) mmol/L Carbon Dioxide 15 L (21-32) mmol/L POC Total CO2 (24-31) mmol/L Anion Gap 18 H (3-11) POC BUN (7-18) mg/dl BUN 29 H (6-23) mg/dl Creatinine 1.26 H (0.6-1.2) mg/dl BUN/Creatinine Ratio 23.0 H (10-20) Glucose 456 H* (70-99(Fasting)) mg/dl POC Glucose (70-99) mg/dl POC Glucose (other) (70-99) mg/dl Lactate 9.5 H* (0.4-2.0) mmol/L Magnesium (1.7-2.4) mg/dl Direct Bilirubin (0-0.2) mg/dl AST (13-39) U/L Alkaline Phosphatase (34-104) U/L Troponin I High Sens 697.3 H* 666.7 H* (0-14) pg/ml B-Natriuretic Peptide (0-100) pg/ml Procalcitonin (0-0.5) ng/ml Urine Appearance Cloudy A (Clear) Urine Protein 2+ H (Negative) Urine Glucose (UA) Trace H (Negative) Urine Ketones Trace H (Negative) Urine Blood 3+ H (Negative) Urine WBC (Auto) 11-20 H (0-5) /hpf Urine RBC (Auto) >20 H (0-2) /hpf U Hyaline Cast (Auto) >20 H (0-2) /lpf U Epithel Cells (Auto) 6-10 H (0-2) /hpf Urine Bacteria (Auto) 1+ H (None Seen) Hyaline Casts Present A (None Presnt) /lpf 10/21/24 10/21/24 10/21/24 Range/Units 16:28 18:00 19:12 WBC 16.97 H (4.8-10.8) K/ul RBC 2.86 L (4.20-5.40) M/uL Hgb 8.2 L (12.0-16.0) g/dl POC Hgb (12.0-16.0) g/dl Hct 25.9 L (37.0-47.0) % POC Hct (37-47) % MCHC 31.7 L (32.0-36.0) g/dL RDW Std Deviation 51.7 H (36.4-46.3) fL RDW Coeff of Katrin 15.4 H (11.5-14.5) % Neut # (Auto) 16.18 H (1.40-6.50) K/uL Lymph # (Auto) 0.32 L (1.20-3.40) K/uL ESR 44 H (0-30) mm/hr PT (9.0-12.0) Seconds INR (0.9-1.1) APTT (21-31) Seconds POC pCO2 (35-46) mmHg POC pO2 (80-95) mmHg POC HCO3 (19-24) meño/L POC Base Excess (-9-1.8) meño/L POC ABG O2 Sat (90-95) % POC Sodium (135-144) mmol/L Sodium (136-145) mmol/L POC Potassium (3.3-5.0) mmol/L Potassium (3.5-5.1) mmol/L Carbon Dioxide (21-32) mmol/L POC Total CO2 (24-31) mmol/L Anion Gap (3-11) POC BUN (7-18) mg/dl BUN (6-23) mg/dl Creatinine (0.6-1.2) mg/dl BUN/Creatinine Ratio (10-20) Glucose (70-99(Fasting)) mg/dl POC Glucose 409 H* 409 H* (70-99) mg/dl POC Glucose (other) (70-99) mg/dl Lactate (0.4-2.0) mmol/L Magnesium (1.7-2.4) mg/dl Direct Bilirubin (0-0.2) mg/dl AST (13-39) U/L Alkaline Phosphatase (34-104) U/L Troponin I High Sens (0-14) pg/ml B-Natriuretic Peptide (0-100) pg/ml Procalcitonin (0-0.5) ng/ml Urine Appearance (Clear) Urine Protein (Negative) Urine Glucose (UA) (Negative) Urine Ketones (Negative) Urine Blood (Negative) Urine WBC (Auto) (0-5) /hpf Urine RBC (Auto) (0-2) /hpf U Hyaline Cast (Auto) (0-2) /lpf U Epithel Cells (Auto) (0-2) /hpf Urine Bacteria (Auto) (None Seen) Hyaline Casts (None Presnt) /lpf Diagnostic Findings Chest X-Ray 10/21/24 14:02 XR chest 1V portable CLINICAL HISTORY: Sepsis COMPARISON STUDY: 10/05/2024 FINDINGS: There are mitral valvular calcifications. There is stable moderate cardiomegaly without pulmonary vascular congestion. No effusion, consolidation, or pneumothorax. IMPRESSION: No acute findings. ACT 112: Negative or not required by law. Electronically signed by: Marcial Aaron M.D. 10/21/2024 2:[address] 10/21/24 16:24 INDICATION: Shortness of breath. Abdominal pain. COMPARISON: No relevant priors available. TECHNIQUE: Axial CT images of the chest, abdomen and pelvis were obtained. Postcontrast CT chest images. Pre and postcontrast CT abdomen pelvis images obtained. Coronal and sagittal reformations were reviewed. FINDINGS: Chest: The thoracic aorta appears normal in caliber. The heart is mildly enlarged. No pericardial or pleural effusion. No pneumothorax. No pathologically enlarged mediastinal or hilar lymph nodes. No pulmonary consolidation. No acute osseous abnormality evident. Abdomen and pelvis: Gallstones in the gallbladder. The liver is cirrhotic. No hepatic mass identified. Mild splenomegaly. This pancreas and adrenal glands appear unremarkable. No hydronephrosis. A few small renal cysts noted. No renal calculus. No evidence of bowel obstruction/colitis/appendicitis. No free air. No drainable fluid collection. Negative for abdominal aortic aneurysm or dissection. There is a Ortega catheter in the urinary bladder. No acute osseous abnormality evident. IMPRESSION: 1. No acute process in the chest. 2. Cirrhosis. 3. Splenomegaly. 4. Cholelithiasis. Electronically signed by Sarath Ray 10-21-2024 6:04 PM Abdomen/Pelvis CT 10/21/24 17:06 INDICATION: Shortness of breath. Abdominal pain. COMPARISON: No relevant priors available. TECHNIQUE: Axial CT images of the chest, abdomen and pelvis were obtained. Postcontrast CT chest images. Pre and postcontrast CT abdomen pelvis images obtained. Coronal and sagittal reformations were reviewed. FINDINGS: Chest: The thoracic aorta appears normal in caliber. The heart is mildly enlarged. No pericardial or pleural effusion. No pneumothorax. No pathologically enlarged mediastinal or hilar lymph nodes. No pulmonary consolidation. No acute osseous abnormality evident. Abdomen and pelvis: Gallstones in the gallbladder. The liver is cirrhotic. No hepatic mass identified. Mild splenomegaly. This pancreas and adrenal glands appear unremarkable. No hydronephrosis. A few small renal cysts noted. No renal calculus. No evidence of bowel obstruction/colitis/appendicitis. No free air. No drainable fluid collection. Negative for abdominal aortic aneurysm or dissection. There is a Ortega catheter in the urinary bladder. No acute osseous abnormality evident. IMPRESSION: 1. No acute process in the chest. 2. Cirrhosis. 3. Splenomegaly. 4. Cholelithiasis. Electronically signed by Sarath Ray 10-21-2024 6:04 PM Medications Administered Home Medications albuterol sulfate 90 mcg/actuation aerosol inhaler (Ventolin HFA) 2 puff inhalation QID PRN Shortness Of Breath Or Wheezing 01/12/20 [History Confirmed 10/21/24] fluticasone propionate 50 mcg/actuation nasal spray,suspension (Flonase Allergy Relief) 2 spray intranasal QAM 01/12/20 [History Confirmed 10/21/24] metformin 1,000 mg tablet 1,000 mg PO BIDM 01/12/20 [History Confirmed 10/21/24] nitroglycerin 0.3 mg sublingual tablet (Nitrostat) 0.3 mg sublingual .PRN/UD PRN Chest Pain 01/12/20 [History Confirmed 10/21/24] warfarin 5 mg tablet 5 mg PO MOWEFRSA@1600 01/12/20 [History Confirmed 10/21/24] cholecalciferol (vitamin D3) 25 mcg (1,000 unit) capsule 1,000 unit PO QAM #30 caps 01/19/20 [Rx Confirmed 10/21/24] multivitamin (Daily-Moiz tablet) 1 tab PO QAM #30 tabs 01/19/20 [Rx Confirmed 10/21/24] cyanocobalamin (vitamin B-12) 1,000 mcg sublingual tablet 1,000 mcg sublingual DAILY 09/21/22 [History Confirmed 10/21/24] aspirin 81 mg tablet,delayed release 81 mg PO QAM 11/15/23 [History Confirmed 10/21/24] insulin aspart U-100 100 unit/mL subcutaneous solution (Novolog U-100 Insulin aspart) See Rx Instructions .Route .COMPLEX 11/15/23 [History Confirmed 10/21/24] isosorbide mononitrate 60 mg tablet,extended release 24 hr 60 mg PO QAM 11/15/23 [History Confirmed 10/21/24] rosuvastatin 20 mg tablet 20 mg PO QAM 11/15/23 [History Confirmed 10/21/24] potassium chloride 20 mEq tablet,extended release 20 meq PO 3XWK #30 tabs 11/17/23 [Rx Confirmed 10/21/24] famotidine 40 mg tablet 40 mg PO DAILY 09/05/24 [History Confirmed 10/21/24] furosemide 20 mg tablet 20 mg PO QAM #30 tabs 10/08/24 [Rx Confirmed 10/21/24] metoprolol succinate 25 mg tablet,extended release 24 hr 12.5 mg (1/2 x 25 mg) PO QAM #15 tabs 10/08/24 [Rx Confirmed 10/21/24] warfarin 5 mg tablet 10 mg PO SUTUTH@1600 10/21/24 [History Confirmed 10/21/24] Active Medications Albuterol (Albut/Ipratrop 3mg/0.5mg Neb 3 Ml Vial) 3 ml NEB Q6R [facility]; Protocol Stop: 11/20/24 18:59 Aspirin (Aspirin 81 Mg Ectab) 81 mg PO QAM [facility] Stop: 11/21/24 08:59 Magnesium Sulfate/Dextrose (Magnesium Sulfate / D5w) 1 gm in 100 mls @ 50 mls/hr IV Q2H [facility] Stop: 10/21/24 20:29 Last Admin: 10/21/24 18:01 Dose: 50 mls/hr Cefepime HCl (Maxipime 2000mg) 2,000 mg in 20 mls @ 5 mls/min IV Q12H [facility]; Protocol Stop: 10/26/24 21:59 Insulin Human Regular 250 (units/ Sodium Chloride) 250 mls @ 0 mls/hr IV .Q0M [facility]; Protocol Stop: 11/20/24 19:14 Parenteral Electrolytes (Plasma-Lyte A Ph 7.4) 1,000 mls @ 115 mls/hr IV .Q8H42M [facility] Stop: 10/22/24 19:14 Metoprolol Succinate (Metoprolol Succ 25mg Ext Rel Tab) 12.5 mg PO QAM [facility] Stop: 11/21/24 08:59 Miscellaneous Information (Vancomycin Consult Active) 1 each N/A UD PRN PRN Reason: Consult Stop: 11/20/24 15:04 Miscellaneous Information (Pharmacy Glycemic Mgmt Consult) 1 each N/A UD PRN PRN Reason: Consult Stop: 11/20/24 16:35 Rosuvastatin Calcium (Rosuvastatin Calcium 20 Mg Tab) [facility] Stop: 11/21/24 08:59 ECG Additional Comments: Sinus tachycardiawithPremature atrial complexes Incomplete right bundle branch block Abnormal ECG When compared with ECG 23:09, Premature atrial complexesare nowPresent Vent. ratehas increasedby 46bpm Incomplete right bundle branch blockis nowPresent Coding Level of Care Code 88304 CRITICAL CARE 1ST 30-74M Diagnoses Septic shock A41.9; R65.21 Lactic acidosis E87.20 Hyperlipidemia, unspecified hyperlipidemia type E78.5 Hyperlipidemia type: unspecified Insulin dependent type 2 diabetes mellitus E11.9; Z79.4 Chronic atrial fibrillation I48.20 Supratherapeutic INR R79.1 Elevated troponin R79.89 Acute hypoxic respiratory failure J96.01 (3) Hyperlipidemia Hyperlipidemia type: unspecified Qualified Code(s): E78.5 - Hyperlipidemia, unspecified
[2024-10-21] MEDS: ALBUT/IPRATROP 3MG/0.5MG NEB 3 ML VIAL NEB SCH (19:56)
[2024-10-21 20:02] LABS: Calcium 8.2 mg/dl (8.6-10.3); Magnesium 1.8 mg/dl (1.7-2.4); Potassium 3.8 mmol/L (3.5-5.1)
[2024-10-21] MEDS: PLASMA-LYTE A 250 ML IV ONE (20:05)
[2024-10-21] MEDS: PLASMA-LYTE A 1,000 ML IV SCH (20:06)
[2024-10-21] MEDS: CEFEPIME 2000MG 2,000 MG/20 ML SYR IV SCH (20:06)
[2024-10-21] MEDS: INSULIN PROTOCOL GOAL RANGE ONE (20:06)
[2024-10-21 20:59] LABS: Creatinine Clr Calc Pharmacy 43.9 ml/min; Phosphorus 2.1 mg/dl (2.5-4.9)
[2024-10-21] MEDS ORDERED: INSULIN ASPART PER UNIT CHARGE SC SCH (21:00)
[2024-10-21] MEDS ORDERED: ICU Protocol for HYPERglycemia SCH (21:00)
[2024-10-21] MEDS: STAT IV Infusion **Titration per Protocol STA (21:13)
[2024-10-21] MEDS: SODIUM CHLOR 0.45% + 20MEQ KCL 20 MEQ/1,000 ML BAG IV SCH (21:13)
[2024-10-21] MEDS: POTASSIUM CHLORIDE CRTAB 20 MEQ TABCR PO STA (21:51)
[2024-10-21 22:49] LABS: C Reactive Protein 15.69 mg/dl (0-0.5)
--- OUTSIDE RECORDS SUMMARY | 2024-10-21 23:30 | External Medical Summary | Summary of Care ---
Author Name Unknown Organization [facility] Address [address] [facility] [place] [address] Phone [phone] Care Team Providers Care Senior Internal Auditor Name Role Phone Natalia Heller PA-C Primary Care Provider [phone] Reason for Visit * Reason Onset Date Comments Hospital Call 10/18/2024 BG > 500 Encounter Details Date Type Department Care Team (Late st Contact Info) Description 10/18/2024 Telephone Pharmacy, [place] [facility] [address] [place] [address] [facility] [address] [place], [place] [id number] Hospital Call (BG > 500) Allergies Active Allergy Reactions Criticality Noted Date Comments Alendronate Sodium 06/24/2012 Burning sensation and difficulty breathing Proton Pump Inhibitors Hives 02/20/2002 nexium documented as of this encounter (statuses as of 10/18/2024) Medications Multiple Vitamin (DAILY VALUE MULTIVITAMIN) Tablet Take 1 Tablet by mouth in the morning. Active Fluticasone Propionate 50 MCG/ACT Nasal Suspension (Flonase)Indicati ons:Chronic rhinitis Administer 2 Sprays into each nostril in the morning. 16 g 1 3 Active Accu-Chek Guide Me w/Device KitIndications:Ty pe 2 diabetes mellitus with foot ulcer, with long-term current use of insulin (HCC),DM (diabetes mellitus) type II, controlled, with peripheral vascular disorder ([facility]) Use as directed. 4 Active Accu-Chek Softclix LancetsIndication s:Type 2 diabetes mellitus with foot ulcer, with long-term current use of insulin (HCC),DM (diabetes mellitus) type II, controlled, with peripheral vascular disorder ([facility]) Use to test blood glucose 4 times daily. DX: E11.9 400 Each 3 10/05/2023 6:57 AM EST 4 Active Rosuvastatin Calcium 20 MG Oral Tablet (Crestor)Indicati ons:Dyslipidemia, goal LDL below 70 Take 1 Tablet by mouth in the morning. 90 Tablet 3 05/20/2024 6:57 AM EDT 4 Active Insulin Aspart 100 UNIT/ML Injection Solution (NovoLOG) Inject under the skin. 310 units in pump. Getting from [employer] PAP Active Aspirin 81 MG Oral Tablet Delayed Release Take 1 Tablet by mouth in the morning. 4 Active Metoprolol Succinate ER 50 MG Oral Tablet Extended Release 24 Hour (toPROL XL) TAKE ONE TABLET BY MOUTH TWICE A DAY 180 Tablet 3 05/09/2024 8:51 AM EDT 4 025 Active Additional Information Patient taking differently: 12.5 mg once daily, dose decreased [facility] admit 09/26/24, Reported on 10/14/2024 Isosorbide Mononitrate ER 60 MG Oral Tablet Extended Release 24 Hour (Imdur)Indication s:HTN, goal below 130/80,Coronary artery disease involving [place] coronary artery of [place] heart without angina pectoris TAKE ONE TABLET BY MOUTH EVERY MORNING 90 Tablet 3 05/09/2024 8:51 AM EDT 4 025 Active metFORMIN HCl 1000 MG Oral Tablet (Glucophage)Indic ations:DM type 1 causing neurological disease, 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 Active Nitroglycerin 0.3 MG Sublingual Tablet Sublingual (Nitrostat)Indica tions:Coronary artery disease of [place] artery of [place] heart with stable angina pectoris (HCC) PLACE 1 TABLET UNDER THE TONGUE EVERY 5 MINUTES UP TO 3 DOSES NEEDED FOR CHEST PAIN. IF NO RELIEF CALL 911 OR GO TO ER 25 Tablet 11 02/08/2024 8:35 AM EDT 4 025 Active Albuterol Sulfate HFA 108 (90 Base) MCG/ACT Inhalation Aerosol Solution Inhale 2 puffs by mouth 4 times daily 20.1 g 2 4 Active Famotidine 40 MG Oral Tablet (Pepcid)Indicatio ns:Gastro-esophag eal reflux disease without esophagitis Take 1 Tablet by mouth in the morning. 30 Tablet 1 09/17/2024 7:59 AM EST 5 Active Accu-Chek Guide Test In Vitro Strip (Glucose Blood) Use to test bg up to 4 times a day 800 Strip 1 09/19/2024 3:05 PM EST 5 Active Accu-Chek Adri Plus w/Device Kit Use to check bg 1 Kit 1 09/19/2024 3:05 PM EST 5 Active Furosemide 20 MG Oral Tablet (Lasix)Indication s:Coronary artery disease of [place] artery of [place] heart with stable angina pectoris (HCC) Take 1 Tablet by mouth in the morning. 90 Tablet 5 Active Potassium Chloride ER 10 MEQ Oral Capsule Extended ReleaseIndication s:Coronary artery disease of [place] artery of [place] heart with stable angina pectoris (HCC) Take 1 Capsule by mouth in the morning. 90 Capsule 10/13/2024 7:59 AM EDT 5 Active Anoro Ellipta 62.5-25 MCG/ACT Inhalation Aerosol Powder Breath Activated (umeclidinium-iain anterol)Indicatio ns:COPD, moderate (HCC) Inhale 1 Puff by mouth in the morning. 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 360 mL 1 10/17/2024 7:02 AM EDT Active Compressor NebulizerIndicati ons:SOB (shortness of breath),COPD, moderate (HCC) Inhale via nebulizer. Use as directed. 1 Each 1 Active Nebulizer/Tubing/ Mouthpiece KitIndications:SO B (shortness of breath),COPD, moderate (HCC) Use to nebulize medication 1 Kit 1 Active Hospital, Clinic, or Other Facility Administered Medication Ordered Dose Route Frequency Start Date End Date Status Albuterol Sulfate (Proventil) (2.5 MG/3ML) 0.083% inhalation solution 2.5 mgIndications:COPD with exacerbation (HCC),SOB (shortness of breath),Asthma with COPD (chronic obstructive pulmonary disease) (HCC) 2.5 mg NEBULIZER PRN 08/21/2024 08/21/2025 Active documented as of this encounter (statuses as of 10/18/2024) Active Problems Problem Noted Date Diagnosed Date Chronic diastolic congestive heart failure 09/30 Assessment & Plan (09/30/2024 11:32 AM EST): "RED FLAG" HF Symptoms: Leg Swelling Abdominal Bloating Increased dyspnea on exertion Medication Regimen: Beta [place] Therapy: Metoprolol Succinate (ER) DEB Inhibitor/ARB Therapy: No DEB/ARB/ARNI secondary to: h/o hypotension Diuretic therapy: Lasix SGLT2 Inhibitor: No Current SGLT2 (Describe in the Comments) Remote Patient Monitoring Vendor: No Connected RPM Device(s): Traditional Scale Traditional Pulse Ox Self - Management Plan Double dose of Furosemide for 3 days Exacerbation Plan Contact the HF Provider for IV Lasix guidance Additional Comments: Appears euvolemic Chronic GARCIA , likely multifactorial Diabetic polyneuropathy asso ciated with type 1 diabetes mellitus 11/23/2023 Assessment & Plan (10/14/2024 1:10 PM EDT): Uncontrolled dm Hypotension 11/12/2023 Atrial fibrillation with rapid ventricular respo nse 11/12/2023 Gastro-esophageal reflux disease without esophag itis 03/27/2022 [...] artery disease of n ative artery of [place] heart with stable angina pectoris 12/08/2020 Assessment & Plan (10/14/2024 1:10 PM EDT): Orders: CARDIOLOGY REFERRAL OP Assessment & Plan (01/24/2024 1:49 PM EDT): Follows with cardiology Medically managed at this time Using ntg prn History of ankle surgery 03/24/2020 History of complete ray ampu tation of first toe of right foot 06/08/2019 Chronic atrial fibrillation 03/25/2019 Assessment & Plan (10/14/2024 1:10 PM EDT): Orders: CARDIOLOGY REFERRAL OP Assessment & Plan (01/24/2024 1:49 PM EDT): Rate controlled Continue coumadin as per MTM Diabetic cataract, 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 Ipratropium-Albuterol 0.5-2.5 (3) MG/3ML Inhalation Solution (Duoneb); Inhale 3 mL via nebulizer in the morning and 3 mL at noon and 3 mL in the evening and 3 mL before bedtime. Compressor Nebulizer; Inhale via nebulizer. Use as directed. Nebulizer/Tubing/Mouthpiece Kit; Use to nebulize medication Assessment & Plan (09/30/2024 11:32 AM EST): Now following with pulm Only using albtuerol qid at this time Recently completed augmentin as well as oral steroid Assessment & Plan (01/24/2024 1:48 PM EDT): [...] Breathing at baseline today Senile osteoporosis 02/02/2012 Assessment & Plan (09/30/2024 11:32 AM EST): Dyslipidemia, goal LDL below 100 07/15/2009 Overview (07/15/2009): Per Lipid Taxonomy. 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 0 05/03/2005 Assessment & Plan (10/14/2024 1:10 PM EDT): Orders: CARDIOLOGY REFERRAL OP Warfarin Sodium 5 MG Oral Tablet (Coumadin); TAKE ONE TABLET TO ONE AND ONE-HALF TABLET BY MOUTH EVERY DAY DIRECTED BY COUMADIN CLINIC documented as of this encounter (statuses as of 10/18/2024) Resolved Problems Problem Noted Date Diagnosed Date Resolved Date Acquired absence of other to e(s), unspecified side 09/30/2024 10/14/2024 Assessment & Plan (09/30/2024 11:32 AM EST): First toe of right foot Depression, unspecified 09/25/202409/07 Type 2 diabetes mellitus wit h foot ulcer (CODE) 09/19/2022 09/25/2024 Major depressive disorder, s gwendolyn episode, unspecified [...] as of this encounter (statuses as of 10/18/2024) Immunizations Name Administration Dates Next Due COVID-19 [...] Not on file 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 Not on f ile Not on [...] Miscellaneous Notes * Telephone Encounter - Allie Love, [facility] - 10/18/2024 10:13 AM EDT Per LO Pierson, reached to request review of DM treatment course upon triage. Contacts Contact Date/Time Type Contact Phone/Fax 10/18/2024 10:18 AM EDT Phone (Outgoing) Graciela Mobley (Self) [phone] (H) Spoke to Patient - Spoke with Tyler and Graciela Called and talked with Tyler (spouse), and confirmed that pump is working properly and Graciela is taking metformin (although he said she's taking all her pills, but he did not know whether it was metformin or not). Graciela stated that she was feeling lightheaded. Per [employer] past 3-day report that Tyler could pull up, the 3-day avg was 331 and 21% in range. Tyler stated that Graciela has not been having lows for the past few days. Tyler stated that they have been bolusing for the past few days, but not so much before. Below readings are what Tyler has been recording using glucometer. 10/16 Before breakfast: 69 (did not remember what happened the night before that); supper reading was 304 -no bolus in AM -25 units with lunch -25 units with supper 10/17 321 in the morning; lunch 300+; 567 at supper -25 units with breakfast (oatmeal with cinnamon sugar) -25 units with lunch (although Tyler said that she did not eat lunch initially) -25 units with supper (salad with cheese) + 15 units with chips eaten a few hours after supper right before she went to bed. 3/15 (this morning) 528 8:30 AM 426 10 AM -25 units in AM after the 500+ reading and that lowered it to 400s Reviewed her diet. Tyler confirmed that Graciela has not been eating much protein. Discussed the importance of protein intake. Gave meal-plan options as below. Tyler agreed to follow these and not give Graciela any other snacks or sweets. -Tyler reported pt eating a lot of "protein bars" - [facility] high sugar nut bars - av carb is about 25 g per bar - reviewed carb content with Tyler, and advised Tyler to hold off giving those bars toGayle. -ground turkey, chicken breast, tuna for main meal protein -incorporate salads and greens -small potatoes for carb -cheeses with berries and Triple Zero yogurt (only this type of yogurt) for snacks Reviewed Graciela's bolus regimen with Tyler. Per last MTM note, 25 units with breakfast, 45 units with lunch and 40 units with supper (adds difference to preset bolus of 25 for lunch and supper). In addition, 15-25 units bolus for snack. When speaking with Tyler and Graciela, Graciela did not know any part of her treatment course nor her food intake. Tyler stated multiple times that he's not good at all this stuff and had difficulty navigatingthe pump/report. Hyperglycemic episode was due to noncompliance. Educated Tyler and pt regarding nutrients and diet as above. Tyler and pt confirmed understanding. Advised RN Valencia to keep pt in ER and bring her glucose down in the 200s and assess status for discharge. Will f/u in person with MTM in 4 days. Allie Love, PharmD, [facility] PGY1 Salesforce Trainer Medication Therapy [facility] [place] 10/18/2024 11:19 AM documented in this encounter Plan of Treatment Upcoming Encounters Date Type Department Care Team (Late st Contact Info) Description 10/22/2024 3:00 PM EDT [facility] [address] [place] [phone] [place], [facility] [address] [address] 10/23/2024 10:45 AM EDT Office Visit Cardiology [facility] [address] [place] [address] Ubaldo Tuttle MD [address] [place] [address] 10/28/2024 8:00 AM EDT [facility] [address] [place] [phone] Leslee Heath DO [address] [place] [address] 10/29/2024 8:00 AM EDT Office Visit Pharmacy, [address] [facility] [place] [phone] [facility] [address] [address] 10/29/2024 8:10 AM EDT Anticoagulation Pharmacy, [place] [facility] [place] [place] [phone] [place], [facility] [address] [address] 11/10/2024 11:00 AM EDT Office Visit Family Practice, [place] [place] [phone] Natalia Heller PA-C [address] [place] [address] 11/12/2024 8:20 AM EDT Office Visit Family Practice, [place] [address] [place] [address] Natalia Heller PA-C [address] [place] [address] 02/18/2025 12:00 PM EDT Office Visit [facility] [place] [address] [place] [phone] Natalia Heller PA-C [address] [place] [address] Scheduled Procedures Name Priority Associated Diagnoses Date/Ti [...] ASSESSMENT COMPLETED IN PAST YEAR FOR COPD 10/14/2025 10/14/2024 Pneumococcal Vaccine: 50+ Years Completed 01/20/2016, 01/15/2015, 09/18/2006, Additional history exists Colonoscopy Discontinued 09/18/2023, 09/06, 11/16/2020, Additional history exists Colorectal Cancer Screening Discontinued RETIRED - COLONOSCOPY-EVERY 2 YRS AGES 18-100 Discontinued 09/18/2023, 09/18/2023, 11/16/2020, Additional history exists Influenza Vaccine (FLU shot) Completed 04/15/2024, 04/04/2023, 05/08/2022, Additional history exists Alpha-1 Antitrypsin Completed 05/09/2024 VITAMIN D LEVEL ONCE IN A LIFETIME-USE SMARTSET# [id number] Completed 05/09/2024, 06/18/2020, 07/25/2019, Additional history exists [...] this encounter Medical Devices Implanted Type Area Farrowing Worker Device Identifier Shelf Expiration Date Model / Serial / Lot Graft Cervical 6x8 [id number] - [id number] Implanted:Qt y: 2 on 08/21/2008 at OR [facility] [place] Tissue - Human Spine Cervical [employer] [id number] / / Screw Spine 14mm [id number] - [id number] Implanted:Qt y: 2 on 08/21/2008 at OR [facility] [place] N/A: Spine Cervical [employer] DEPUY 014 / / Depuy [place] 14 [address] Con Scr Implanted:Qt y: [...] variable r escue Screw 3.5x14 Mntr Fa [id number] - [id number] Implanted:Qt y: 10 on 07/13/2010 at OR [facility] [place] N/A: Spine Cervical JNJ : [employer] [id number] / / Devaughn [id number] - [id number] Implanted:Qt y: 1 on 07/13/2010 at OR [facility] [place] N/A: Spine Cervical JNJ : [employer] [id number] / / Screw Inner Mntr [id number] - [id number] Implanted:Qt y: 8 on 07/13/2010 at OR [facility] [place] N/A: Spine Cervical JNJ : [employer] [id number] / / Nut Outer Xcon [id number] - [id number] Implanted:Qt y: 2 on 07/13/2010 at OR [facility] [place] N/A: Spine Cervical JNJ : [employer] [id number] / / Screw Inner Xcon [id number] - [id number] Implanted:Qt y: 2 on 07/13/2010 at OR [facility] [place] N/A: Spine Cervical JNJ : [employer] [id number] / / Plate 35mm Xcon [id number] - [id number] Implanted:Qt y: 1 on 07/13/2010 at OR [facility] [place] N/A: Spine Cervical JNJ : [employer] [id number] / / documented as of this encounter Visit Diagnoses Diagnosis COPD, moderate (HCC)- Primary Chronic airway obstruction, not elsewhere classified Chronic atrial fibrillation (HCC) Atrial fibrillation Coronary artery disease of [place] artery of [place] heart with stable angina pectoris (HCC) DM (diabetes mellitus) type II, controlled, with peripheral vascular disorder (HCC) Advanced care planning/counseling discussion Other specified counseling COPD, moderate (HCC)- Primary Chronic airway obstruction, not elsewhere classified Chronic diastolic congestive heart failure (HCC) Chronic diastolic heart failure Senile osteoporosis Acquired absence of other toe(s), unspecified side (HCC) Hospital discharge follow-up- Primary Other follow-up examination Acute on chronic diastolic congestive heart failure (HCC) Acute on chronic diastolic heart failure Coronary artery disease of [place] artery of [place] heart with stable angina pectoris (HCC) Chronic atrial fibrillation (HCC) Atrial fibrillation Dyslipidemia, goal LDL below 100 Other and unspecified hyperlipidemia 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 SOB (shortness of breath) Shortness of breath Type 2 diabetes mellitus with foot ulcer, with long-term current use of insulin (HCC) Diabetic polyneuropathy associated with type 1 diabetes mellitus (HCC) COPD, moderate (HCC) Chronic airway obstruction, not elsewhere classified Prolonged Q-T interval on ECG Nonspecific abnormal electrocardiogram (ECG) (EKG) Deep vein thrombosis (DVT) of left lower extremity, unspecified chronicity, unspecified vein (HCC) Elevated troponin Other abnormal blood chemistry Medical non-compliance Personal history of noncompliance with medical treatment, presenting hazards to health Type 2 diabetes mellitus with foot ulcer, [...] the patient have Health Care Power of Delivery Person? No * Full Code Date Activated Date [...] Power of Attor kim? No Care Teams Senior Internal Auditor Relationship Specialty Start Date End Date Natalia Heller PA-C [facility] [place] [address] PCP - General Physician Calculus Tutor 08/28/24 documented as of this encounter
--- OUTSIDE RECORDS SUMMARY | 2024-10-21 23:30 | External Medical Summary | Summary of Care ---
Author Name Unknown Organization [facility] Address [address] [facility] [place] [address] Phone [phone] Care Team Providers Care Telephone Installer Name Role Phone Natalia Heller PA-C Primary Care Provider [phone] Reason for Visit * Reason Onset Date Comments Medication Question 10/20/2024 Encounter Details Date Type Department Care Team (Late st Contact Info) Description 10/20/2024 Telephone [facility] [address] [place] [address] Natalia Heller PA-C [address] [place] [address] Medication Question Allergies Active Allergy Reactions Criticality Noted Date Comments Alendronate Sodium 06/24/2012 Burning sensation and difficulty breathing Proton Pump Inhibitors Hives 02/20/2002 nexium documented as of this encounter (statuses as of 10/20/2024) Medications Multiple Vitamin (DAILY VALUE MULTIVITAMIN) Tablet [...] [facility]) Use as directed. 4 Active Accu-Chek Softclix [...] skin. 310 units in pump. Getting from [employer] PAP Active Aspirin 81 MG Oral Tablet Delayed Release Take 1 Tablet by mouth in the morning. 4 Active Metoprolol Succinate ER 50 MG Oral Tablet Extended Release 24 Hour (toPROL XL) TAKE ONE TABLET BY MOUTH TWICE A DAY 180 Tablet 3 05/09/2024 8:51 AM EDT 4 025 Active Additional Information Patient taking differently: 12.5 mg once daily, dose decreased [facility] admit 09/26/24, Reported on 10/14/2024 Isosorbide Mononitrate ER 60 MG Oral Tablet Extended Release 24 Hour (Imdur)Indication s:HTN, goal below 130/80,Coronary artery disease involving [place] coronary artery of [place] heart without angina pectoris TAKE ONE TABLET [...] Tablet Sublingual (Nitrostat)Indica tions:Coronary artery disease of [place] artery of [place] heart with stable angina pectoris (HCC) PLACE [...] Oral Tablet (Lasix)Indication s:Coronary artery disease of [place] artery of [place] heart with stable angina pectoris (HCC) Take 1 Tablet by mouth in the morning. 90 Tablet 5 Active Potassium Chloride ER 10 MEQ Oral Capsule Extended ReleaseIndication s:Coronary artery disease of [place] artery of [place] heart with stable angina pectoris (HCC) Take 1 Capsule by mouth in the morning. 90 Capsule 10/13/2024 7:59 AM EDT 5 Active Anoro Ellipta 62.5-25 MCG/ACT Inhalation Aerosol Powder Breath Activated (umeclidinium-iain anterol)Indicatio ns:COPD, moderate (HCC) Inhale 1 Puff by mouth in the morning. 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 current use of anticoagulant therapy,Deep vein thrombosis (DVT) of left lower extremity, unspecified chronicity, unspecified vein (HCC) TAKE ONE TO ONE AND ONE-HALF TABLETS BY MOUTH EVERY DAY DIRECTED BY [facility] 135 Tablet 3 10/17/2024 7:02 AM EDT 5 Active Ipratropium-Albut silverio 0.5-2.5 (3) MG/3ML [...] as of this encounter (statuses as of 10/20/2024) Active Problems Problem Noted Date Diagnosed Date [...] artery disease of n ative artery of [place] heart with stable angina pectoris 12/08/2020 Assessment [...] CARDIOLOGY REFERRAL OP Cervical spinal stenosis 08/21/2008 skilled nursing current use of anticoagulant therapy 0 05/03/2005 Assessment & Plan (10/14/2024 1:10 PM EDT): Orders: CARDIOLOGY REFERRAL OP Warfarin Sodium 5 MG Oral Tablet (Coumadin); TAKE ONE TABLET TO ONE AND ONE-HALF TABLET BY MOUTH EVERY DAY DIRECTED BY [facility]IN [facility]IN[facility] documented as of this encounter (statuses as of 10/20/2024) Resolved Problems Problem Noted Date Diagnosed Date [...] as of this encounter (statuses as of 10/20/2024) Immunizations Name Administration Dates Next Due COVID-19 [...] Not on file 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 Provided [phone] per prior messages in pt chart. Thank You, April Mejia CPhT Grid Inspector II [facility] 10/20/2024, 8:53 AM documented in this encounter Plan of Treatment Upcoming Encounters Date Type Department Care Team (Late st Contact Info) Description 10/22/2024 3:00 PM EDT Office Visit Pharmacy, [facility] [address] [place] [phone] [facility] [address] [place] [address] 10/23/2024 10:45 AM EDT Office Visit Cardiology [facility], [place] [address] [facility] [place] [address] Ubaldo Tuttle MD [address] [facility] [place] [address] 10/28/2024 8:00 AM EDT Office Visit Sleep Disorders Ctr [facility] [address] [facility] [place] [address] Leslee Heath, DO [address] [place], [place] [address] 10/29/2024 8:00 AM EDT Office Visit Pharmacy, [place], [place] [address] [facility] [address] [facility], [place] [id number] 10/29/2024 8:10 AM EDT Anticoagulation Pharmacy, [place], [place] [address] [facility] [address] [facility], [place] [address] 11/10/2024 11:00 AM EDT Office Visit Family Practice, [place] [address] Natalia Heller PA-C [address], [place] [address] 11/12/2024 8:20 AM EDT Office Visit [facility], [place] [address] Natalia Heller PA-C [address] [place] [address] 02/18/2025 12:00 PM EDT Office Visit Family Practice, [place] [address] Natalia Heller PA-C [address] [place], [place] [phone] Scheduled Procedures Name Priority Associated Diagnoses Date/Ti [...] 09/15/2024 09/15/2014, 07/15/2008, 02/09/1998 HbA1c 11/07/2024 05/09/2024, 1011/2023, 11/16/2023, Additional history [...] D LEVEL ONCE IN A LIFETIME-USE SMARTSET# 70150 Completed 05/09/2024, 06/18/2020, 07/25/2019, Additional history exists [...] encounter Medical Devices Implanted Type Area Machine Splitter Device Identifier Shelf Expiration Date Model / Serial / Lot Graft Cervical 6x8 [id number] - [id number] Implanted:Qt y: 2 on 08/21/[place] [facility] [place] Human Spine Cervical [employer] [id number] / / Screw Spine 14mm 50-014 - [id number] Implanted:Qt y: 2 on 08/21/2008 [place] [facility] [place] Spine Cervical [employer] DEPUY 50-014 / / Depuy [place] 14 Mm Sd Con Scr Implanted:Qt y: 2 on 08/21/2008 [place] [facility] [place]: Spine Cervical [employer] DEPUY 60-014 / / Description:Depuy skyline 14 mm SD con SCR 34 Mm Plate Implanted:Qt y: 1 on 08/21/2008 [place] [facility] [place]: Spine Cervical 02-034 / / Description:34 mm Depuy plat e 14 Mm Variable Rescue Implanted:Qt y: 2 on 08/21/2008 [place] [facility] [place]: Spine Cervical 54-014 / / Description:14 mm variable r escue Screw 3.5x14 Mntr Fa [id number] - [id number] Implanted:Qt y: 10 on 07/13/2010 [place] [facility] [place]: Spine Cervical JNJ : [employer] [id number] / / [place]augh[place] [id number] - [id number] Implanted:Qt y: 1 on 07/13/2010 [place] [facility] [place]: Spine Cervical JNJ : [employer]ATIONS [id number] / / Screw Inner Mntr [id number] - [id number] Implanted:Qt y: 8 on 07/13/2010 [place] [facility] [place]: Spine Cervical JNJ : [employer]ATIONS [id number] / / Nut Outer Xcon [id number] - [id number] Implanted:Qt y: 2 on 07/13/2010 [place] [facility] [place]: Spine Cervical JNJ : [employer] [id number] / / Screw Inner Xcon [id number] - [id number] Implanted:Qt y: 2 on 07/13/2010 [place] [facility] [place]: Spine Cervical JNJ : [employer] [id number] / / Plate 35mm Xcon [id number] - [id number] Implanted:Qt y: 1 on 07/13/2010 [place] [facility] [place]: Spine Cervical JNJ : [employer]ATIONS [id number] / / documented as of this encounter [...] the patient have Health Care Power of It Programmer Analyst? No * Full Code Date Activated [...] Power of Attor kim? No Care Teams Telephone Installer Relationship Specialty Start Date End Date Natalia Heller PA-C [facility] [place] [id number] PCP - General Physician Crystalizer Operator 08/28/24 documented as of this encounter
--- OUTSIDE RECORDS SUMMARY | 2024-10-21 23:31 | External Medical Summary | Summary of Care ---
Author Name Unknown Organization [facility] Address [address] [facility] [place] [address] Phone [phone] Care Team Providers Care High School Math Teacher Name Role Phone Natalia Heller PA-C Primary Care Provider [phone] Encounter Details Date Type Department Care Team (Late st Contact Info) Description 10/16/2024 Orders Only PATIENT PORTAL DO NOT DELETE THIS DEPT USED BY [place] [id number] Allergies Active Allergy Reactions Criticality Noted Date Comments Alendronate Sodium 06/24/2012 Burning sensation and difficulty breathing Proton Pump Inhibitors Hives 02/20/2002 nexium documented as of this encounter (statuses as of 10/16/2024) Medications Multiple Vitamin (DAILY VALUE MULTIVITAMIN) Tablet [...] peripheral vascular disorder (HCC) Use as directed. 4 Active Accu-Chek Softclix [...] skin. 310 units in pump. Getting from [employer] PAP Active Aspirin 81 MG Oral Tablet Delayed Release Take 1 Tablet by mouth in the morning. 4 Active Metoprolol Succinate ER 50 MG Oral Tablet Extended Release 24 Hour (toPROL XL) TAKE ONE TABLET BY MOUTH TWICE A DAY 180 Tablet 3 05/09/2024 8:51 AM EDT 4 025 Active Additional Information Patient taking differently: 12.5 mg once daily, dose decreased [facility] admit 09/26/24, Reported on 10/14/2024 Isosorbide Mononitrate ER 60 MG Oral Tablet Extended Release 24 Hour (Imdur)Indication s:HTN, goal below 130/80,Coronary artery disease involving [place] coronary artery of [place] heart without angina pectoris TAKE ONE TABLET [...] Tablet Sublingual (Nitrostat)Indica tions:Coronary artery disease of [place] artery of [place] heart with stable angina pectoris (HCC) PLACE [...] Oral Tablet (Lasix)Indication s:Coronary artery disease of [place] artery of [place] heart with stable angina pectoris (HCC) Take 1 Tablet by mouth in the morning. 90 Tablet 5 Active Potassium Chloride ER 10 MEQ Oral Capsule Extended ReleaseIndication s:Coronary artery disease of [place] artery of [place] heart with stable angina pectoris (HCC) Take 1 Capsule by mouth in the morning. 90 Capsule 10/13/2024 7:59 AM EDT 5 Active Anoro Ellipta 62.5-25 MCG/ACT Inhalation Aerosol Powder Breath Activated (umeclidinium-iain anterol)Indicatio ns:COPD, moderate (HCC) Inhale 1 Puff by mouth in the morning. 90 Each 1 5 Active Warfarin Sodium 5 MG Oral Tablet (Coumadin)Indicat ions:senior care current use of anticoagulant therapy,Deep vein thrombosis (DVT) of left lower extremity, unspecified chronicity, unspecified vein (HCC) TAKE ONE TO ONE AND ONE-HALF TABLETS BY MOUTH EVERY DAY DIRECTED BY [facility]ADIN CLINIC 135 Tablet 3 5 Active Ipratropium-Albut silverio 0.5-2.5 (3) MG/3ML Inhalation Solution (Duoneb)Indicatio ns:SOB (shortness of breath),COPD, moderate (HCC) Inhale 1 vial via nebulizer in the morning and 1 vial at noon and 1 vial in the evening and 1 vial before bedtime. 360 mL 1 5 Active Compressor NebulizerIndicati ons:SOB (shortness of breath),COPD, moderate (HCC) Inhale via nebulizer. Use as directed. 1 Each 1 5 Active Nebulizer/Tubing/ Mouthpiece KitIndications:SO B (shortness of breath),COPD, moderate (HCC) Use to nebulize medication 1 Kit 1 5 Active Hospital, Clinic, or Other Facility Administered Medication Ordered Dose Route Frequency Start Date End Date Status Albuterol Sulfate (Proventil) (2.5 MG/3ML) 0.083% inhalation solution 2.5 mgIndications:COPD with exacerbation (HCC),SOB (shortness of breath),Asthma with COPD (chronic obstructive pulmonary disease) (HCC) 2.5 mg NEBULIZER PRN 08/21/2024 08/21/2025 Active documented as of this encounter (statuses as of 10/16/2024) Active Problems Problem Noted Date Diagnosed Date [...] artery disease of n ative artery of [place] heart with stable angina pectoris 12/08/2020 Assessment [...] CARDIOLOGY REFERRAL OP Cervical spinal stenosis 08/21/2008 senior care current use of anticoagulant therapy 0 05/03/2005 Assessment & Plan (10/14/2024 1:10 PM EDT): Orders: CARDIOLOGY REFERRAL OP Warfarin Sodium 5 MG Oral Tablet (Coumadin); TAKE ONE TABLET TO ONE AND ONE-HALF TABLET BY MOUTH EVERY DAY DIRECTED BY [facility]ADIN CLINIC documented as of this encounter (statuses as of 10/16/2024) Resolved Problems Problem Noted Date Diagnosed Date [...] as of this encounter (statuses as of 10/16/2024) Immunizations Name Administration Dates Next Due COVID-19 [...] Not on file 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 Not on file [...] Care Team (Late st Contact Info) Description 10/23/2024 10:45 AM EDT Office Visit Cardiology [facility] [address] [place] [address] Ubaldo Tuttle MD [address] [place] [address] 10/28/2024 8:00 AM EDT [facility] [address] [place] [phone] Leslee Heath DO [address] [place] [address] 10/29/2024 8:00 AM EDT Office Visit Pharmacy, [place] [place] [address] [facility] [place] [phone] [facility] [address] [place] [address] 10/29/2024 8:10 AM EDT Anticoagulation Pharmacy, [place]y Herbert Gaur[place] [address] [place] [phone] [facility] [address] [facility] [place] [address] 11/10/2024 11:00 AM EDT Office Visit Family [facility], [place] [address] [place] [address] Natalia Heller PA-C [address] [facility] [place] [address] 11/12/2024 8:20 AM EDT Office Visit Family Practice, [place] [address] [place] [phone] Natalia Heller PA-C [address] [place] [address] 02/18/2025 12:00 PM EDT Office Visit [facility], [place] [address] [place] [address] Natalia Heller PA-C [address] [place] [address] Scheduled Procedures Name Priority Associated Diagnoses Date/Ti [...] D LEVEL ONCE IN A LIFETIME-USE SMARTSET# 72740 Completed 05/09/2024, 06/18/2020, 07/25/2019, Additional history exists [...] this encounter Medical Devices Implanted Type Area Stove Cleaner Device Identifier Shelf Expiration Date Model / Serial / Lot Graft Cervical 6x8 [id number] - [id number] Implanted:Qt y: 2 on 08/21/2008 [place] [facility] [place] - Human Spine Cervical [employer] [id number] / / Screw Spine 14mm [id number] - [id number] Implanted:Qt y: 2 on 08/21/2008 [place] [facility] [place]A: Spine Cervical [employer] CARSON DEPUY 014 / / Depuy [place] 14 Mm Sd Con Scr Implanted:Qt y: 2 on 08/21/2008 [place] [facility] [place]: Spine Cervical [employer] DEPUY / / Description:Depuy skyline 14 mm SD con SCR 34 Mm Plate Implanted:Qt y: 1 on 08/21/2008 [place] [facility] [place]: Spine Cervical / / Description:34 mm Depuy plat e 14 Mm Variable Rescue Implanted:Qt y: 2 on 08/21/2008 [place] [facility] [place]: Spine Cervical / / Description:14 mm variable r escue Screw 3.5x14 Mntr Fa [id number] - [id number] Implanted:Qt y: 10 on 07/13/2010 [place] [facility] [place]: Spine Cervical JNJ : ETH[employer]ON [employer]ATIONS [id number] / / [place]augh[place] [id number] - [id number] Implanted:Qt y: 1 on 07/13/2010 [place] [facility] [place]: Spine Cervical JNJ : [employer] [id number] / / Screw Inner Mntr [id number] - [id number] Implanted:Qt y: 8 on 07/13/2010 [place] [facility] [place]: Spine Cervical JNJ : [employer] [id number] / / Nut Outer Xcon [id number] - [id number] Implanted:Qt y: 2 on 07/13/2010 [place] [facility] [place]: Spine Cervical JNJ : [employer] [id number] / / Screw Inner Xcon [id number] - [id number] Implanted:Qt y: 2 on 07/13/2010 [place] [facility] [place]: Spine Cervical JNJ : [employer] [id number] / / Plate 35mm Xcon [id number] - [id number] Implanted:Qt y: 1 on 07/13/2010 [place] [facility] [place]: Spine Cervical JNJ : [employer] [id number] / / documented as of this encounter [...] the patient have Health Care Power of Progress Man? No * Full Code Date Activated Date [...] Power of Attor kim? No Care Teams High School Math Teacher Relationship Specialty Start Date End Date Natalia Heller PA-C [address] [place] [id number] PCP - General Physician Printing Machinist 08/28/24 documented as of this encounter
--- OUTSIDE RECORDS SUMMARY | 2024-10-21 23:31 | External Medical Summary | Summary of Care ---
Author Name Unknown Organization [facility] Address [address] [facility] [place] [address] Phone [phone] Care Team Providers Care Liaison Inspection Laboratory Assistant Name Role Phone Natalia Heller PA-C Primary Care Provider [phone] [phone] Reason for Visit * Reason Onset Date Comments Hospital Call 10/18/2024 BG > 500 Encounter Details Date Type Department Care Team (Late st Contact Info) Description 10/18/2024 Telephone Pharmacy, [place] [address] [facility] [place] [address] [facility] [address] [place], [place] [id number] Hospital Call (BG > 500) Allergies Active [...] ([facility]) Use as directed. 4 Active Accu-Chek [...] skin. 310 units in pump. Getting from [employer] PAP Active Aspirin 81 MG Oral Tablet Delayed Release Take 1 Tablet by mouth in the morning. 4 Active Metoprolol Succinate ER 50 MG Oral Tablet Extended Release 24 Hour (toPROL XL) TAKE ONE TABLET BY MOUTH TWICE A DAY 180 Tablet 3 05/09/2024 8:51 AM EDT 4 025 Active Additional Information Patient taking differently: 12.5 mg once daily, dose decreased [facility] admit 09/26/24, Reported on 10/14/2024 Isosorbide Mononitrate ER 60 MG Oral Tablet Extended Release 24 Hour (Imdur)Indication s:HTN, goal below 130/80,Coronary artery disease involving sycuan coronary artery of sycuan heart without angina pectoris TAKE ONE TABLET [...] Tablet Sublingual (Nitrostat)Indica tions: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 90 Capsule 10/13/2024 7:59 AM EDT 5 Active Anoro Ellipta 62.5-25 MCG/ACT Inhalation Aerosol Powder Breath Activated (umeclidinium-iain anterol)Indicatio ns:COPD, moderate (HCC) Inhale 1 Puff by mouth in the morning. 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 Contacts Contact Date/Time Type Contact Phone/Fax 10/18/2024 10:18 AM EDT Phone (Outgoing) Graciela Mobley (Self) [phone] (H) Spoke to Patient - Spoke with [...] eating a lot of "protein bars" - [facility] high sugar nut bars - av carb [...] MTM in 4 days. Allie Love, PharmD, [facility] PGY1 Candy Waffle Assembler Medication Therapy Management [facility] [place] 10/18/2024 11:19 AM documented in this encounter Plan of Treatment Upcoming Encounters Date Type Department Care Team (Late st Contact Info) Description 10/22/2024 3:00 PM EDT [facility] [address] [place] [address] [place], [facility] [address] [address] 10/23/2024 10:45 AM EDT Office Visit Cardiology [facility] [address] [place] [address] Ubaldo Tuttle MD [address] [place] [address] 10/28/2024 8:00 AM EDT [facility] [address] [place] [phone] Leslee Heath DO [address] [place] [address] 10/29/2024 8:00 AM EDT Office Visit Pharmacy, [address] [place] [phone] [place] [facility] [address] [address] 10/29/2024 8:10 AM EDT Anticoagulation Pharmacy, [place] [place] [address] [place] [address] [place], [facility] [address] [address] 11/10/2024 11:00 AM EDT Office Visit Family Practice, [address] [place] [address] Natalia Heller PA-C [address] [place] [address] 11/12/2024 8:20 AM EDT Office Visit Family Practice, [place] [place] [address] Natalia Heller PA-C [address] [place] [address] 02/18/2025 12:00 PM EDT Office Visit [facility] [place] [address] [place] [address] Natalia Heller PA-C [address] [place] [address] Scheduled Procedures Name Priority Associated Diagnoses Date/Ti [...] D LEVEL ONCE IN A LIFETIME-USE SMARTSET# [id number] Completed 05/09/2024, 06/18/2020, 07/25/2019, Additional history exists [...] this encounter Medical Devices Implanted Type Area Itinerant Teacher Assistant Device Identifier Shelf Expiration Date Model / Serial / Lot Graft Cervical 6x8 [id number] - [id number] Implanted:Qt y: 2 on 08/21/2008 at [place] [facility] Tissue - Human Spine Cervical Lifenet Co [id number] / / Screw Spine 14mm [id number] - [id number] Implanted:Qt y: 2 on 08/21/2008 at OR [facility] N/A: Spine Cervical CARSON [employer] CARSON DEPUY 014 / / Depuy Miles 14 Mm Sd Con Scr Implanted:Qt y: 2 on 08/21/2008 at OR [facility] N/A: Spine Cervical [employer] DEPUY / / Description:Depuy skyline 14 mm SD con SCR 34 Mm Plate Implanted:Qt y: 1 on 08/21/2008 at [place] [facility] N/A: Spine Cervical / / Description:34 mm Depuy plat e 14 Mm Variable Rescue Implanted:Qt y: 2 on 08/21/2008 at OR [facility] N/A: Spine Cervical / / Description:14 mm variable r escue Screw 3.5x14 Mntr Fa [id number] - [id number] Implanted:Qt y: 10 on 07/13/2010 at [place] [facility] N/A: Spine Cervical JNJ : ETHICON CARDIOVATIONS [id number] / / Devaughn [id number] - [id number] Implanted:Qt y: 1 on 07/13/2010 at [place] [facility] N/A: Spine Cervical JNJ : ETHICON CARDIOVATIONS [id number] / / Screw Inner Mntr [id number] - [id number] Implanted:Qt y: 8 on 07/13/2010 at [place] [facility] N/A: Spine Cervical JNJ : ETHICON CARDIOVATIONS [id number] / / Nut Outer Xcon [id number] - [id number] Implanted:Qt y: 2 on 07/13/2010 at [place] [facility] N/A: Spine Cervical JNJ : ETH[employer]ON CARDIOVATIONS [id number] / / Screw Inner Xcon [id number] - [id number] Implanted:Qt y: 2 on 07/13/2010 at [place] [facility] N/A: Spine Cervical JNJ : ETH[employer]ON C[employer]OVATIONS [id number] / / Plate 35mm Xcon [id number] - [id number] Implanted:Qt y: 1 on 07/13/2010 at [place] [facility] N/A: Spine Cervical JNJ : ETHICON CARDIOVATIONS [id number] / / documented as of this encounter Visit Diagnoses Diagnosis COPD, moderate (HCC)- Primary Chronic airway obstruction, not elsewhere classified Chronic atrial fibrillation (HCC) Atrial fibrillation 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 No * Full Code Date Activated Date [...] patient have Health Care Power of Attor kmi? No * Full Code Date Activated Date Inactivated Comments 07/13/2010 12:29 PM 07/17/2010 4:03 PM This order reflects the patients wishes and were consensually agreed upon. Question Answer Comments Discussion of Advance Directives occurred with: Not Discussed Does the patient have a Living Will? No Does the patient have Health Care Power of Attor kim? No Care Teams Liaison Inspection Laboratory Assistant Relationship Specialty Start Date End Date Natalia Heller PA-C [facility] [address] [place] [address] PCP - General Physician Division Merchandise Manager 08/28/24 documented as of this encounter
--- OUTSIDE RECORDS SUMMARY | 2024-10-21 23:31 | External Medical Summary | Summary of Care ---
Author Name Unknown Organization [facility] Address [address] [place] [address] Phone [phone] Care Team Providers Care Senior Stereo Compiler Team Lead Name Role Phone Natalia Heller PA-C Primary Care Provider [phone] [phone] Reason for Visit * Reason Onset Date Comments [facility]: Maintenance 10/15/2024 Encounter Details Date Type Department Care Team (Late st Contact Info) Description 10/15/2024 12:00 PM EDT Scheduled Telephone [facility], [facility] [address] [facility] [place] [address] [facility], Nurse [facility] [address] [facility] [place] [address] Allergies Active Allergy Reactions Criticality Noted Date Comments Alendronate Sodium 06/24/2012 Burning sensation and difficulty breathing Proton Pump Inhibitors Hives 02/20/2002 nexium documented as of this encounter (statuses as of 10/15/2024) Medications Multiple Vitamin (DAILY VALUE MULTIVITAMIN) Tablet [...] disorder ([facility]) Use as directed. 4 Active Accu-Chek Softclix [...] skin. 310 units in pump. Getting from [employer] PAP Active Aspirin 81 MG Oral Tablet Delayed Release Take 1 Tablet by mouth in the morning. 4 Active Metoprolol Succinate ER 50 MG Oral Tablet Extended Release 24 Hour (toPROL XL) TAKE ONE TABLET BY MOUTH TWICE A DAY 180 Tablet 3 05/09/2024 8:51 AM EDT 4 025 Active Additional Information Patient taking differently: 12.5 mg once daily, dose decreased [facility] admit 09/26/24, Reported on 10/14/2024 Isosorbide Mononitrate ER 60 MG Oral Tablet Extended Release 24 Hour (Imdur)Indication s:HTN, goal below 130/80,Coronary artery disease involving iroquois coronary artery of iroquois heart without angina pectoris TAKE ONE TABLET [...] Tablet Sublingual (Nitrostat)Indica tions: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 90 Capsule 10/13/2024 7:59 AM EDT 5 Active Anoro Ellipta 62.5-25 MCG/ACT Inhalation Aerosol Powder Breath Activated (umeclidinium-iain anterol)Indicatio ns:COPD, moderate (HCC) Inhale 1 Puff by mouth in the morning. 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 0 05/03/2005 Assessment & Plan (10/14/2024 1:10 PM EDT): Orders: CARDIOLOGY REFERRAL OP Warfarin Sodium 5 MG Oral Tablet (Coumadin); TAKE ONE TABLET TO ONE AND ONE-HALF TABLET BY MOUTH EVERY DAY DIRECTED BY COUMADIN CLINIC documented as of this encounter (statuses as of 10/15/2024) Resolved Problems Problem Noted Date Diagnosed Date Resolved Date Acquired absence of other to e(s), unspecified side 09/30/2024 10/14/2024 Assessment & Plan (09/30/2024 11:32 AM EST): First toe of right foot Depression, unspecified 09/25/202409/07 Type 2 diabetes mellitus wit h foot ulcer (CODE) 09/19/2022 09/25/2024 Major depressive disorder, s gewndolyn episode, unspecified 12/08/2020 09/11/2022 Overview (09/11/2022): More [...] as of this encounter (statuses as of 10/15/2024) Immunizations Name Administration Dates Next Due COVID-19 [...] Not on file 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 Not on f ile [...] encounter Miscellaneous Notes * Telephone Encounter - Cristela Herndon RN - 10/15/2024 10:58 AM EDT [facility] Telephonic Nurse Follow-Up Call [facility] Subprogram: Focused Care Management (3-9 months) Follow Up Call Type: ALBARO #3 Acute issue requiring follow-up call: Admitted to [facility] on 09/26/2024 due to Acute Hypoxic respiratory failure causing elevated troponin, chronic diastolic heart failure Objective: 10/14/2024 12:44 PM 10/11/2024 3:15 PM 09/12/2024 1:20 PM 08/25/2024 8:33 AM 08/21/2024 11:12 AM VITALS ACROSS ENCOUNTERS BP 89/47 138/72 136/68 110/60 Pulse 90 80 68 100 79 Weight 92.8 kg 91.2 kg 95.3 kg BMI 34.03 34.95 BMI 34.03 kg/m2 33.45 kg/m2 34.95 kg/m2 Remote Patient Monitoring: NONE Oxygen Needs: NO supplemental oxygen needs identified DME Needs: NO DME needs identified Medications: New medication(s) added: furosemide 20 mg daily, KCL 10 meq daily, Medication(s) discontinued: zoloft, trazadone (2/2 prolonged QT) Subjective: Condition Status: Improvement in symptoms but not at baseline Current Concerns: Pt seen 10/14 for HD visit with PC. Pt d/c'd from [facility] with lasix and metoprolol. To f/w cardiology outpt (appt on 10/23). Zoloft and trazadone d/c'd while inpt due to prolonged QT. Med compliance a concern, PCP requested auto-dispensing med box and pt's following. BG historically uncontrolled, BG 43 AM of visit. Started on home nebs - DME f/u per PCP office. Spoke with pt, reports she is doing well. Breathing feels good today. States she took all of her morning meds as scheduled. States BG this AM was ~129. Appetite poor but feels her fluid intake is adequate. Encouraged small meals/snacks to keep up calorie intake. Active with [facility] for SN and PT/OT. No new concerns at this time. Pt is aware of her upcoming cardiology appt date and time. Encouraged to call HEALTH SYSTEM with new or worsening symptoms. Disposition: Routed to [facility] and/or [facility] Care Team for further advice FYI - pt has no scheduled [facility]ALTH [facility] follow up at this time. Future Visits Scheduled: Future Appointments-next 60 days Date/Time Provider Specialty Dept Phone 10/15/2024 12:00 PM [facility], Nurse [facility] [phone] 10/23/2024 10:45 AM (Arrive by 10:30 AM) Ubaldo Tuttle MD Cardiology [phone] 10/28/2024 8:00 AM (Arrive by 7:45 AM) Leslee Heath, Sleep Disorders [phone] 10/29/2024 8:00 AM [facility] [phone] 10/29/2024 8:10 AM [facility] [phone] 11/10/2024 11:00 AM (Arrive by 10:45 AM) Natalia Heller PA-C Family Medicine [phone] 11/12/2024 8:20 AM (Arrive by 8:05 AM) Natalia Heller PA-C Family Medicine [phone] 02/18/2025 12:00 PM (Arrive by 11:45 AM) Natalia Heller PA-C Family Medicine [phone] Cristela Herndon RN documented in this encounter Plan of Treatment Upcoming Encounters Date Type Department Care Team (Late st Contact Info) Description 10/23/2024 10:45 AM EDT Office Visit Cardiology [facility] [address] Ubaldo Tuttle MD [address] [place] [address] 10/28/2024 8:00 AM EDT Office Visit Sleep Disorders Ctr [facility] [address] [place] [phone] Leslee Heath DO [address] [place] [address] 10/29/2024 8:00 AM EDT Office Visit Pharmacy, [place] [place] [phone] [place] [address] [place] [address] 10/29/2024 8:10 AM EDT Anticoagulation Pharmacy, [place] [address] [place] [address] [place] [address] 11/10/2024 11:00 AM EDT Office Visit [facility], [address] [place] [address] Natalia Heller PA-C [address] [place] [address] 11/12/2024 8:20 AM EDT Office Visit [facility], [address] [place] [phone] Natalia Heller PA-C [address] [place] [address] 02/18/2025 12:00 PM EDT Office Visit [facility], [place] [address] [place] [address] Natalia Heller PA-C [address] [place] [address] Scheduled Procedures Name Priority Associated Diagnoses Date/Ti [...] D LEVEL ONCE IN A LIFETIME-USE SMARTSET# 54581 Completed 05/09/2024, 06/18/2020, 07/25/2019, Additional history exists [...] this encounter Medical Devices Implanted Type Area Online Retailer Device Identifier Shelf Expiration Date Model / Serial / Lot Graft Cervical 6x8 [id number] - [id number] Implanted:Qt y: 2 on 08/21/2008 at [place] [facility] [place] Tissue - Human Spine Cervical Lif[employer] Co [id number] / / Screw Spine 14mm 8-50-014 - [id number] Implanted:Qt y: 2 on 08/21/2008 at [place] [facility] N/A: Spine Cervical CARSON [employer] CARSON DEPUY 8-50-014 / / Depuy [place] 14 Mm Sd Con Scr Implanted:Qt y: 2 on 08/21/2008 at [place] [facility] N/A: Spine Cervical [employer]PUY 1868-60-014 / / Description:Depuy skyline 14 mm SD con SCR 34 Mm Plate Implanted:Qt y: 1 on 08/21/2008 at [place] [facility] N/A: Spine Cervical / / Description:34 mm Depuy plat e 14 Mm Variable Rescue Implanted:Qt y: 2 on 08/21/2008 at [place] [facility] N/A: Spine Cervical 54-014 / / Description:14 mm variable r escue Screw 3.5x14 Mntr Fa [id number] - [id number] Implanted:Qt y: 10 on 07/13/2010 at [place] [facility] N/A: Spine Cervical JNJ : ETH[employer]ON C[employer]ATIONS [id number] / / Devaughn [id number] - [id number] Implanted:Qt y: 1 on 07/13/2010 at [place] [facility] N/A: Spine Cervical JNJ : ETHICON CARDIOVATIONS [id number] / / Screw Inner Mntr [id number] - [id number] Implanted:Qt y: 8 on 07/13/2010 at [place] [facility] N/A: Spine Cervical JNJ : ETHICON CARDIOVATIONS [id number] / / Nut Outer Xcon [id number] - [id number] Implanted:Qt y: 2 on 07/13/2010 at [place] [facility] N/A: Spine Cervical JNJ : ETH[employer]ON CARDIOVATIONS [id number] / / Screw Inner Xcon [id number] - [id number] Implanted:Qt y: 2 on 07/13/2010 at [place] [facility] N/A: Spine Cervical JNJ : ETHICON CARDIOVATIONS [id number] / / Plate 35mm Xcon [id number] - [id number] Implanted:Qt y: 1 on 07/13/2010 at [place] [facility] [place] N/A: Spine Cervical JNJ : ETHICON CARDIOVATIONS [id number] / / documented as of this encounter [...] the patient have Health Care Power of Photographic Printer? No * Full Code Date Activated Date [...] of Attor kim? No Care Teams Senior Stereo Compiler Team Lead Relationship Specialty Start Date End Date Natalia Heller PA-C [address] [place] [address] PCP - General Physician Data Examination Clerk 08/28/24 documented as of this encounter
--- OUTSIDE RECORDS SUMMARY | 2024-10-21 23:31 | External Medical Summary | Summary of Care ---
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 [facility] For which of the following conditions are you referring? Heart Failure Clinic Reason for Visit * Reason Comments Hospital Follow-Up Pt is present with s on, he states that pt is here for hospital follow up. 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); Diabetic polyneuropathy associated with type 1 diabetes mellitus (HCC); COPD, moderate (HCC); Prolonged Q-T interval on ECG; Deep vein thrombosis (DVT) of left lower extremity, unspecified chronicity, unspecified vein (HCC); Elevated troponin; Medical non-compliance Allergies Active Allergy Reactions Criticality Noted Date [...] [facility]) Use as directed. 024 Active Accu-Chek Softclix LancetsIndication s:Type 2 diabetes [...] Tablet by mouth in the morning. Active Metoprolol Succinate ER 50 MG Oral Tablet Extended Release 24 Hour (toPROL XL) TAKE ONE TABLET BY MOUTH TWICE A DAY 180 Tablet 3 05/09/20 8:51 AM EDT 024 2024 Active Additional Information Patient taking differently: 12.5 mg once daily, dose decreased [facility] admit 09/26/24, Reported on 10/14/2024 Isosorbide Mononitrate ER 60 MG Oral Tablet Extended Release 24 Hour (Imdur)Indication s:HTN, goal below 130/80,Coronary artery disease involving nightmute coronary artery of nightmute heart without angina pectoris TAKE ONE TABLET BY MOUTH EVERY MORNING 90 Tablet 3 05/09/20 8:51 AM EDT 024 2024 Active metFORMIN HCl 1000 MG Oral Tablet (Glucophage)Indic ations:DM type 1 causing neurological disease, not at goal (HCC) TAKE ONE TABLET BY MOUTH TWICE A DAY WITH FOOD 200 Tablet 3 06/13/20 3:44 PM EST 024 2024 Active Vitamin B12 500 MCG Oral Tablet Take by mouth daily. 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 IF NO RELIEF CALL 911 OR GO TO ER 25 Tablet 11 02/08/20 24 8:35 AM EDT 024 2024 Active Albuterol Sulfate HFA 108 (90 Base) MCG/ACT Inhalation Aerosol Solution Inhale 2 puffs by mouth 4 times daily 20.1 g 2 07/03/2 024 Active Famotidine 40 MG Oral Tablet (Pepcid)Indicatio ns:Gastro-esophag eal reflux disease without esophagitis Take 1 Tablet by mouth in the morning. 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 90 Capsule 10/14/19 25 7:59 AM EDT 025 Active Anoro Ellipta 62.5-25 MCG/ACT Inhalation Aerosol Powder Breath Activated (umeclidinium-iain anterol)Indicatio ns:COPD, moderate (HCC) Inhale 1 Puff by mouth in the morning. 90 Each 1 025 Active Warfarin Sodium 5 MG Oral Tablet (Coumadin)Indicat ions:alf current use of anticoagulant therapy,Deep vein thrombosis (DVT) of left lower extremity, unspecified chronicity, unspecified vein (HCC) TAKE ONE TO ONE AND ONE-HALF TABLETS BY MOUTH EVERY DAY DIRECTED BY [facility]ADIN CLINIC 135 Tablet 3 025 Active Ipratropium-Albut silverio 0.5-2.5 (3) MG/3ML Inhalation Solution (Duoneb)Indicatio ns:SOB (shortness of breath),COPD, moderate (HCC) Inhale 1 vial via nebulizer in the morning and 1 vial at noon and 1 vial in the evening and 1 vial before bedtime. 360 mL 1 025 Active Compressor NebulizerIndicati ons:SOB (shortness of breath),COPD, moderate (HCC) Inhale via nebulizer. Use as directed. 1 Each 1 025 Active Nebulizer/Tubing/ Mouthpiece KitIndications:SO B (shortness of breath),COPD, moderate (HCC) Use to nebulize medication 1 Kit 1 025 Active Warfarin Sodium 5 MG Oral Tablet (Coumadin)Indicat ions:house father current use of anticoagulant therapy,Deep vein thrombosis (DVT) (HCC) TAKE ONE TABLET TO ONE AND ONE-HALF TABLET BY MOUTH EVERY DAY DIRECTED BY [facility]MADIN CLINIC 135 Tablet 3 04/05/20 24 7:59 AM EDT 024 2024 Discontinued(R efill) Sertraline HCl 50 MG Oral Tablet (Zoloft) TAKE 1 AND 1/2 TABLETS BY MOUTH AT BEDTIME 135 Tablet 1 024 2024 Discontinued Pregabalin 150 MG Oral Capsule (Lyrica)Indicatio ns:Diabetic polyneuropathy associated with type 1 diabetes mellitus ([facility]) TAKE ONE CAPSULE BY MOUTH TWICE A DAY 180 Capsule 1 05/10/20 24 8:07 AM EDT 024 2024 Discontinued Mirtazapine 30 MG Oral Tablet (Remeron)Indicati ons:Primary insomnia,Poor appetite Take 1 Tablet by mouth at bedtime. 30 Tablet 024 2024 Discontinued traZODone HCl 50 MG Oral Tablet (Desyrel) Take 1 Tablet by mouth at bedtime. 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 Not on f ile Not on file Not on file documented as of this encounter Last Filed Vital Signs Vital Sign Reading Time Taken Comments Blood Pressure 89/47 10/14/2024 12:44 PM EDT Pulse 90 10/14/2024 12:44 PM EDT Temperature 36.2 C (97.1 F) 10/14/2024 12:44 PM E DT Respiratory Rate 18 10/14/2024 12:44 PM EDT Oxygen Saturation 96% 10/14/2024 12:44 PM EDT Inhaled Oxygen Concentration - - Weight 92.8 kg (204 lb 8 oz) 10/14/2024 12:44 PM EDT Height 165.1 cm (5' 5") 10/14/2024 12:44 PM EDT Body Mass Index 34.03 10/14/2024 12:44 PM EDT documented in this encounter Functional Status * [...] documented in this encounter Progress Notes * Natalia Erazo PA-C - 10/16/2024 7:45 AM EDT Addended to add order for smart wireless pill dispenser order Hospital discharge follow-up (Primary) - CARDIOLOGY REFERRAL OP - DURABLE MEDICAL EQUIPMENT Acute on chronic diastolic congestive heart failure (HCC) - CARDIOLOGY REFERRAL OP - TSH WITH FREE T4 IF INDICATED; Future; Expected date: 10/14/2024 - CBC; Future; Expected date: 10/14/2024 - BNP, NT-PRO; Future; Expected date: 10/14/2024 - BASIC METABOLIC PANEL; Future; Expected date: 10/14/2024 - DURABLE MEDICAL EQUIPMENT 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) - CARDIOLOGY REFERRAL OP - DURABLE MEDICAL EQUIPMENT Chronic atrial fibrillation ([facility]) - CARDIOLOGY REFERRAL OP - DURABLE MEDICAL EQUIPMENT Dyslipidemia, goal LDL below 100 - CARDIOLOGY REFERRAL OP - DURABLE MEDICAL EQUIPMENT house father current use of anticoagulant therapy - CARDIOLOGY REFERRAL OP - Warfarin Sodium 5 MG Oral Tablet (Coumadin); TAKE ONE TO ONE AND ONE-HALF TABLETS BY MOUTH EVERY DAY DIRECTED BY COUMADIN CLINIC - DURABLE MEDICAL EQUIPMENT SOB (shortness of breath) - CARDIOLOGY REFERRAL OP - Ipratropium-Albuterol 0.5-2.5 (3) MG/3ML Inhalation Solution (Duoneb); Inhale 1 vial via nebulizer in the morning and 1 vial at noon and 1 vial in the evening and 1 vial before bedtime. - Compressor Nebulizer; Inhale via nebulizer. Use as directed. - Nebulizer/Tubing/Mouthpiece Kit; Use to nebulize medication - DURABLE MEDICAL EQUIPMENT Type 2 diabetes mellitus with foot ulcer, with long-term current use of insulin ([facility]) - HEMOGLOBIN A1C; Future; Expected date: 10/14/2024 - DURABLE MEDICAL EQUIPMENT Diabetic polyneuropathy associated with type 1 diabetes mellitus ([facility]) - DURABLE MEDICAL EQUIPMENT COPD, moderate ([facility]) - Anoro Ellipta 62.5-25 MCG/ACT Inhalation Aerosol Powder Breath Activated (umeclidinium-vilanterol); Inhale 1 Puff by mouth in the morning. - Ipratropium-Albuterol 0.5-2.5 (3) MG/3ML Inhalation Solution (Duoneb); Inhale 1 vial via nebulizer in the morning and 1 vial at noon and 1 vial in the evening and 1 vial before bedtime. - Compressor Nebulizer; Inhale via nebulizer. Use as directed. - Nebulizer/Tubing/Mouthpiece Kit; Use to nebulize medication - DURABLE MEDICAL EQUIPMENT Prolonged Q-T interval on ECG - EKG - DURABLE MEDICAL EQUIPMENT Deep vein thrombosis (DVT) of left lower extremity, unspecified chronicity, unspecified vein (HCC) - Warfarin Sodium 5 MG Oral Tablet (Coumadin); TAKE ONE TO ONE AND ONE-HALF TABLETS BY MOUTH EVERY DAY DIRECTED BY COUMADIN CLINIC - DURABLE MEDICAL EQUIPMENT Elevated troponin - DURABLE MEDICAL EQUIPMENT Medical non-compliance - DURABLE MEDICAL EQUIPMENT Other orders - INR FINGERSTICK, POINT OF CARE Follow Up: Return in about 4 weeks (around 11/11/2024) for return 4-6 weeks - 40 min. | For: return 4-6 weeks - 40 min | Check-out note: Cardiology follow up - soon - any provider - hospital follow up Paresh f/u was supposed to happen in September - please reschedule Natalia Erazo PA-C 10/16/2024 7:46 AM * Natalia Erazo PA-C - 10/14/2024 12:27 PM EDT Images from the original note were not included. Subjective Graciela Mobley is a 74 year old female that presents for Hospital Follow-Up (Pt is present with son, he states that pt is here for hospital follow up. Pt states that she is having a sternum pain) Was admitted to [facility] on 09/26/2024 due to Acute Hypoxic respiratory failure causing elevated troponin, chronic diastolic heart failure, , she had a suprathoracic inr - on coumadin due to her afib. Shehas know copd and depression - on zoloft, and trazodone - which caused prolonged qt., known diabetic polyneuropathy - poor control on pump. She had been previously admitted -09/11/2024 and was recommended to go to pt/ot rehab but shedeferred and was discharged home on . She was felt to have mild chf. Basilar pnx not excluded No dvt noted on doppler Normal procalcitonin, neg Biofire viral panel Echo was done 09/06/2024 Cardiology was consulted and she is to f/u outpatient as it has been close to a year since she was seen She was gradually titated off oxygen and maile RA She was discharged on Lasix 20 mg and metoprolol succinate 12.5 mg daily and these meds have been refilled on 10/09/2024 While inpatient she had 2 episodes of bradycardia with torsades, this the qt prolonging meds were d/c She had nebs prn in patient and was advised to continue outpatient on anoro - this will be sent today Her diabetes is uncontrolled. She works with [employer] and there is question if she is giving hersel insulin regularly. She was discharged home 10/08/2024. Had low bg this morning - at 43 - they had juice and a cooking and it came up She had 2 days of not taking pills Tessie is watching her closely. Past Medical History: Diagnosis Date Asthma with [...] LDL below 100 07/15/2009 Per [employer]id [employer]. alf (current) use of anticoagulants Major depressive disorder, single episode, unspecified 12/08/2020 More specified/recent code listed on PL Myalgia and myositis Osteoarthrosis, unspecified whether generalized or localized, lower leg Other B-complex deficiencies Phlebitis and thrombophlebitis of other deep vessels of lower extremities Right leg x 2 Anoro Ellipta 62.5-25 MCG/ACT Inhalation Aerosol Powder Breath Activated (umeclidinium-vilanterol) Compressor Nebulizer Ipratropium-Albuterol 0.5-2.5 (3) MG/3ML Inhalation Solution (Duoneb) Nebulizer/Tubing/Mouthpiece Kit Warfarin Sodium 5 MG Oral Tablet (Coumadin) Furosemide 20 MG Oral Tablet (Lasix) Potassium Chloride ER 10 MEQ Oral Capsule Extended Release Accu-Chek Adri Plus w/Device Kit Accu-Chek Guide Test In Vitro Strip (Glucose Blood) Famotidine 40 MG Oral Tablet (Pepcid) Albuterol Sulfate HFA 108 (90 Base) MCG/ACT Inhalation Aerosol Solution Nitroglycerin 0.3 MG Sublingual Tablet Sublingual (Nitrostat) Vitamin B12 500 MCG Oral Tablet metFORMIN HCl 1000 MG Oral Tablet (Glucophage) Isosorbide Mononitrate ER 60 MG Oral Tablet Extended Release 24 Hour (Imdur) Metoprolol Succinate ER 50 MG Oral Tablet Extended Release 24 Hour (toPROL XL) Aspirin 81 MG Oral Tablet Delayed Release Insulin Aspart 100 UNIT/ML Injection Solution (NovoLOG) Rosuvastatin Calcium 20 MG Oral Tablet (Crestor) Accu-Chek Guide Me w/Device Kit Accu-Chek Softclix Lancets Fluticasone Propionate 50 MCG/ACT Nasal Suspension (Flonase) Multiple Vitamin (DAILY VALUE MULTIVITAMIN) Tablet Albuterol Sulfate (Proventil) (2.5 MG/3ML) 0.083% inhalation solution 2.5 mg Extensive ROS Constitutional (f/c/wt/vision/hearing): some fatigue Resp (cough/sob/belcher): she is winded. She does not have a neb at home. CV (cp/palp/fluttering/diaphoresis/belcher/pnd):chest is still sore - this is from chest compressions -and is tender GI (n/v/d/hrtburn): Negative Endo (hair/cold or heat intol/ 3 p's): see hpi - sugar low today Neuro (shaking/weak/fatigu/parasthesi/): fatigued Skin (rash/easy bruis/xerosis): Negative Psy (si/hi/halluc/): Negative (nocturia/hesit/drib/sexual review): Negative Lymph (swollen glands/b sx's/: Negative Objective BP 89/47 | Pulse 90 | Temp 97.1 F (36.2 C) (Tympanic) | Resp 18 | Ht 5' 5" (1.651 m) | Wt 204 lb 8 oz (92.8 kg) | LMP 06/06/2001 | SpO2 96% | BMI 34.03 kg/m | BSA 2.06 m BP Readings from Last 3 Encounters: 10/14/24 89/47 10/11/24 138/72 02/07/25 136/68 Wt Readings from Last 3 Encounters: 10/14/24 204 lb 8 oz (92.8 kg) 10/11/24 201 lb (91.2 kg) 08/21/24 210 lb (95.3 kg) BMI Readings from Last 3 Encounters: 10/14/24 34.03 kg/m 10/11/24 33.45 kg/m 08/21/24 34.95 kg/m Ht Readings from Last 3 Encounters: 10/14/24 5' 5" (1.651 m) 08/21/24 5' 5" (1.651 m) 07/09/24 5' 5" (1.651 m) General: alert, healthy, and no distress Head: [...] chest wall tenderness, lungs clear to auscultation Pulses: carotid=2/4 w/o bruits Abdomen: abdomen soft, non-tender, obese, normal bowel sounds, and no masses or organomegaly Back: back symmetric, no curvature, no costovertebral angle tenderness, range of motion is normal Skin: skin color, texture, turgor are normal, no rashes or significant lesions Chest: sternum tender but no palpable abnormality, no overlying ecchymosis Results reviewed : rev hospital course. 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) Orders: CARDIOLOGY REFERRAL OP Dyslipidemia, goal LDL below 100 Orders: CARDIOLOGY REFERRAL OP alf current use of anticoagulant therapy Orders: CARDIOLOGY REFERRAL OP Warfarin Sodium 5 MG Oral Tablet (Coumadin); TAKE ONE TABLET TO ONE AND ONE-HALF TABLET BY MOUTH EVERY DAY DIRECTED BY COUMADIN CLINIC SOB (shortness of breath) Orders: CARDIOLOGY REFERRAL OP Ipratropium-Albuterol 0.5-2.5 (3) MG/3ML Inhalation Solution (Duoneb); Inhale 3 mL via nebulizer inthe morning and 3 mL at noon and 3 mL in the evening and 3 mL before bedtime. Compressor Nebulizer; Inhale via nebulizer. Use as directed. Nebulizer/Tubing/Mouthpiece Kit; Use to nebulize medication Type 2 diabetes mellitus with foot ulcer, with long-term current use of insulin ([facility]) Orders: HEMOGLOBIN A1C; Future Diabetic polyneuropathy associated with type 1 diabetes mellitus ([facility]) Uncontrolled dm COPD, moderate ([facility]) Orders: Anoro Ellipta 62.5-25 MCG/ACT Inhalation Aerosol Powder Breath Activated (umeclidinium-vilanterol);Inhale 1 Puff by mouth in the morning. Ipratropium-Albuterol 0.5-2.5 (3) MG/3ML Inhalation Solution (Duoneb); Inhale 3 mL via nebulizer inthe morning and 3 mL at noon and 3 mL in the evening and 3 mL before bedtime. Compressor Nebulizer; Inhale via nebulizer. Use as directed. Nebulizer/Tubing/Mouthpiece Kit; Use to nebulize medication Prolonged Q-T interval on ECG Still prolonged off meds Orders: EKG Deep vein thrombosis (DVT) ([facility]) Orders: Warfarin Sodium 5 MG Oral Tablet (Coumadin); TAKE ONE TABLET TO ONE AND ONE-HALF TABLET BY MOUTH EVERY DAY DIRECTED BY COUMADIN CLINIC Elevated troponin [place] to be secondary to her hypoxia and ongoing issues, chronic Wrap-Up Check-out note: Cardiology follow up - soon Paresh f/u was supposed to happen in September - please reschedule Office of aging to be contacted. We will be getting patient and auto dispensing pill box so that wecan ensure compliance with orals. Mtm has been consulted - in to see patient Ask a doc sent Refills done Qt appears still prolonged Stressed med compliance and why Will get her a neb for home use Hold on restart of any ssri for now I spent a total of Greater than 55 mins (exact time 75 mins) on the date of service in preparation,delivery, and documentation of the care provided to Graciela Mobley excluding any time spent in the performance of separately billed services. Natalia Erazo PA-C 10/14/2024 1:09 PM Cosigned by Ralph Pride MD at 10/14/2024 4:36 PM EDT documented in this encounter Procedure Notes * Anival Flowers DO - 10/14/2024 12:34 PM EDTAssociated Order(s): EKG REASON FOR STUDY: prolonged qt on admission;prolonged qt on a CONCLUSIONS: Sinus rhythm with short LA Prolonged QT interval or tu fusion, consider myocardial disease, electrolyte imbalance, or drug effects Abnormal ECG When compared with ECG of 11-Dec-2023 10:04, LA interval has decreased T wave amplitude has increased in Anterior leads Ventricular Rate: 86 Atrial Rate: 86 LA Interval: 98 QRS Duration: 92 QT/QTc: 430/514 ms P-R-T [place]: 47 : 14 : 32 degrees documented in this encounter Nursing Notes * Sofie Blanchard LPN - 10/14/2024 12:44 PM EDT Graciela Mobley is a 74 year old female who presents today for Chief Complaint Patient presents with Hospital Follow-Up Pt is present with son, he states that pt is here for hospital follow up. 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) Orders: CARDIOLOGY REFERRAL OP * Assessment & Plan Note - Natalia Erazo PA-C - 10/14/2024 1:10 PM EDT Associated Problem(s): Chronic atrial fibrillation (HCC) Orders: CARDIOLOGY REFERRAL OP * Assessment & Plan Note - Natalia Erazo PA-C - 10/14/2024 1:10 PM EDT Associated Problem(s): Dyslipidemia, goal LDL below 100 Orders: CARDIOLOGY REFERRAL OP * Assessment & Plan Note - Natalia Erazo PA-C - 10/14/2024 1:10 PM EDT Associated Problem(s): alf current use of anticoagulant therapy Orders: CARDIOLOGY REFERRAL OP Warfarin Sodium 5 MG Oral Tablet (Coumadin); TAKE ONE TABLET TO ONE AND ONE-HALF TABLET BY MOUTH EVERY DAY DIRECTED BY [facility]IN CLINIC * Assessment & Plan Note - Natalia Erazo PA-C - 10/14/2024 1:10 PM EDT Associated Problem(s): Type 2 diabetes mellitus with skin complication, with long-term current use of insulin (HCC) Orders: HEMOGLOBIN A1C; Future * Assessment & Plan Note - Natalia Erazo PA-C - 10/14/2024 1:10 PM EDT Associated Problem(s): Diabetic polyneuropathy associated with type 1 diabetes mellitus (HCC) Uncontrolled dm * Assessment & Plan Note - Natalia Erazo PA-C - 10/14/2024 1:10 PM EDT Associated Problem(s): COPD, moderate (HCC) Orders: Anoro Ellipta 62.5-25 MCG/ACT Inhalation Aerosol Powder Breath Activated (umeclidinium-vilanterol);Inhale 1 Puff by mouth in the morning. Ipratropium-Albuterol 0.5-2.5 (3) MG/3ML Inhalation Solution (Duoneb); Inhale 3 mL via nebulizer inthe morning and 3 mL at noon and 3 mL in the evening and 3 mL before bedtime. Compressor Nebulizer; Inhale via nebulizer. Use as directed. Nebulizer/Tubing/Mouthpiece Kit; Use to nebulize medication documented in this encounter Plan of Treatment Upcoming Encounters Date Type Department Care Team (Late st Contact Info) Description 10/23/2024 10:45 AM EDT Office Visit Cardiology [facility] [place] [address] [place] [address] Ubaldo Tuttle MD [address] [place] [address] 10/28/2024 8:00 AM EDT [facility] [address] [facility] [place] [phone] Leslee Heath DO [address] [place] [phone] 10/29/2024 8:00 AM EDT Office Visit Pharmacy, [facility] [address] [facility] [place] [phone] [place] [address] [place] [address] 10/29/2024 8:10 AM EDT Anticoagulation Pharmacy, [facility] Gauri [address] [facility] [place] [phone] [address] [place] [address] 11/10/2024 11:00 AM EDT Office Visit Family Practice, [place] [address] [place] [address] [facility] [place] [phone] Natalia Erazo PA-C [address] [facility] [place] [phone] 11/12/2024 8:20 AM EDT [facility] [address] [phone] Natalia Erazo PA-C [address] [phone] 02/18/2025 12:00 PM EDT [facility] [address] [phone] Natalia Erazo PA-C [address] [place] [address] Scheduled Orders Name Type Priority Associated Diagnoses Orde r Schedule TSH WITH FREE T4 IF INDICATED Lab Routine Acute on chronic diastolic congestive heart failure (HCC) Expected: 10/14/2024, Expires: 10/14/2025 CBC Lab Routine Acute on chronic diastolic congestive heart failure (HCC) Expected: 10/14/2024, Expires: 10/14/2025 BNP, NT-PRO Lab Routine Acute on chronic diastolic congestive heart failure (HCC) Expected: 10/14/2024, Expires: 10/14/2025 BASIC METABOLIC PANEL Lab Routine Acute on chronic diastolic congestive heart failure (HCC) Expected: 10/14/2024, Expires: 10/14/2025 HEMOGLOBIN A1C Lab Routine Type 2 diabetes mellitus with foot ulcer, with long-term current use of insulin (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 SOB (shortness of breath) Acute on chronic diastolic congestive heart failure (HCC) Ordered: 10/14/2024 Health Maintenance Due Date Last Done Comments [...] D LEVEL ONCE IN A LIFETIME-USE SMARTSET# [id number] Completed 05/09/2024, 06/18/2020, 07/25/2019, Additional history exists [...] this encounter Medical Devices Implanted Type Area General I Farmworker Device Identifier Shelf Expiration Date Model / Serial / Lot Graft Cervical 6x8 [id number] - [id number] Implanted:Qt y: 2 on 08/21/2008 [place] [facility] [place] - Human Spine Cervical [employer] Co [id number] / / Screw Spine 14mm 50-014 - [id number] Implanted:Qt y: 2 on 08/21/2008 at [place] [facility] [place] N/A: Spine Cervical [employer] CARSON DEPUY 1867-50-014 / / Depuy [place] 14 Mm Sd Con Scr Implanted:Qt y: [...] variable r escue Screw 3.5x14 Mntr Fa [id number] - [id number] Implanted:Qt y: 10 on 07/13/2010 at [place] [facility] [place]/A: Spine Cervical JNJ : [employer] [id number] / / Devaughn [id number] - [id number] Implanted:Qt y: 1 on 07/13/2010 at [place] [facility] [place]/A: Spine Cervical JNJ : [employer] [id number] / / Screw Inner Mntr [id number] - [id number] Implanted:Qt y: 8 on 07/13/2010 at [place] [facility] [place] N/A: Spine Cervical JNJ : [employer]ATIONS [id number] / / Nut Outer Xcon [id number] - [id number] Implanted:Qt y: 2 on 07/13/2010 at [place] [facility] [place] N/A: Spine Cervical JNJ : [employer] [id number] / / Screw Inner Xcon [id number] - [id number] Implanted:Qt y: 2 on 07/13/2010 at [place] [facility] [place] N/A: Spine Cervical JNJ : [employer] [id number] / / Plate 35mm Xcon [id number] - [id number] Implanted:Qt y: 1 on 07/13/2010 at [place] [facility] [place] N/A: Spine Cervical JNJ : [employer] [id number] / / documented as of this encounter Procedures Procedure Name Priority Date/Time Associated Diagnosis Comments INR FINGERSTICK, POINT OF CARE ALINE 10/14/2024 1:24 PM EDT LA ECG ROUTINE ECG W/LEAST 12 LDS I&R ONLY Routine 10/14/2024 12:34 PM EDT Prolonged Q-T interval on ECG documented in this encounter Results * INR FINGERSTICK, POINT OF CARE (10/14/2024 1:24 PM EDT) Fingerstick INR 1.7 INR 1:36 PM EDT LABORATORY [facility] 56-01 Blood 10/14/2024 1:24 PM EDT 10/14/2024 1:36 PM EDT Narrative [facility] - 10/14/2024 1:36 PM EDT Therapeutic ranges for non-operative patients: Prophylaxsis/treatment of DVT: (Range:2.0-3.0) Treatment of pulmonary embolism:(Range:2.0-3.0) Prevention of systemic embolism from: -tissue heart valves -acute myocardial infarction -valvular heart disease -atrial fibrillation (Range: 2.0-3.0) Mechanical prosthetic valves: (Range: 2.5-3.5) us Natalia A Oscilla [employer] PA-C LAB POINT OF CARE TEST DOCKED DEVICE UNSOLICITED RESULTS Final Result Performing Organization Address [facility] Co de Phone Number [facility] [place] [address] [place] [address], [facility] * EKG (10/14/2024 12:34 PM EDT) 10/14/2024 12:3 4 PM EDT Narrative Procedure Note Anival Flowers DO - 10/14/2024 12:34 PM EDT REASON FOR STUDY: prolonged qt on admission;prolonged qt on a CONCLUSIONS: Sinus rhythm with short LA Prolonged QT interval or tu fusion, consider myocardial disease,electrolyte imbalance, or drug effects Abnormal ECG When compared with ECG of 11-Dec-2023 10:04, LA interval has decreased T wave amplitude has increased in Anterior leads Ventricular Rate: 86 Atrial Rate: 86 LA Interval: 98 QRS Duration: 92 QT/QTc: 430/514 ms P-R-T [place]: 47 : 14 : 32 degrees us Natalia A Oscilla [employer] PA-C EKG Final Res ult Performing Organization Address [facility] Co de Phone Number [facility] documented in this encounter Visit Diagnoses Diagnosis COPD, moderate (HCC)- Primary Chronic airway obstruction, not elsewhere classified Chronic atrial fibrillation (HCC) Atrial fibrillation Coronary artery disease of [place] artery of [place] heart with stable angina pectoris (HCC) DM [...] diastolic heart failure Coronary artery disease of [place] artery of [place] heart with stable angina pectoris (HCC) Chronic atrial fibrillation (HCC) Atrial fibrillation Dyslipidemia, goal LDL below 100 Other and unspecified hyperlipidemia 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 No * Full Code Date Activated Date [...] Power of Attor kim? No Care Teams Electronic Field Service Engineer Relationship Specialty Start Date End Date Natalia Erazo PA-C [address] [place] [id number] PCP - General Physician Chemical Mixer 08/28/24 documented as of this encounter
--- OUTSIDE RECORDS SUMMARY | 2024-10-21 23:31 | External Medical Summary | Summary of Care ---
Author Name Unknown Organization [facility] Address [address] [address] Phone [phone] Care Team Providers Care Appointment Manager Name Role Phone Natalia Heller PA-C Primary Care Provider [phone] Encounter Details Date Type Department Care Team (Late st Contact Info) Description 10/14[facility] [address] [phone] Natalia Heller PA-C [address] [facility] [place] [address] Allergies Active Allergy Reactions [...] long-term current use of insulin ([facility]),DM (diabetes mellitus) type II, controlled, with peripheral vascular disorder ([facility]) Use to test blood glucose 4 times [...] skin. 310 units in pump. Getting from [employer] PAP Active Aspirin 81 MG Oral Tablet Delayed Release Take 1 Tablet by mouth in the morning. 4 Active Metoprolol Succinate ER 50 MG Oral Tablet Extended Release 24 Hour (toPROL XL) TAKE ONE TABLET BY MOUTH TWICE A DAY 180 Tablet 3 05/09/2024 8:51 AM EDT 4 025 Active Additional Information Patient taking differently: 12.5 mg once daily, dose decreased [facility] admit 09/26/24, Reported on 10/14/2024 Isosorbide Mononitrate ER 60 MG Oral Tablet Extended Release 24 Hour (Imdur)Indication s:HTN, goal below 130/80,Coronary artery disease involving [place] coronary artery of [place] heart without angina pectoris TAKE ONE TABLET [...] Tablet Sublingual (Nitrostat)Indica tions:Coronary artery disease of [place] artery of [place] heart with stable angina pectoris (HCC) PLACE [...] Oral Tablet (Lasix)Indication s:Coronary artery disease of [place] artery of [place] heart with stable angina pectoris (HCC) Take 1 Tablet by mouth in the morning. 90 Tablet 5 Active Potassium Chloride ER 10 MEQ Oral Capsule Extended ReleaseIndication s:Coronary artery disease of [place] artery of [place] heart with stable angina pectoris (HCC) Take 1 Capsule by mouth in the morning. 90 Capsule 10/13/2024 7:59 AM EDT 5 Active Anoro Ellipta 62.5-25 MCG/ACT Inhalation Aerosol Powder Breath Activated (umeclidinium-iain anterol)Indicatio ns:COPD, moderate (HCC) Inhale 1 Puff by mouth in the morning. 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 And supplies * Telephone Encounter - Natalia Heller PA-C - 10/14/2024 1:33 PM EDT [facility] and tubing for graciela Natalia Heller PA-C 10/14/2024 1:33 PM documented in this encounter Plan of Treatment Upcoming Encounters Date Type Department Care Team (Late st Contact Info) Description 10/23/2024 10:45 AM EDT Office Visit [facility] [address] [place] [address] Ubaldo Tuttle MD [address] [place] [address] 10/28/2024 8:00 AM EDT Office Visit Sleep Disorders [facility] [address] [phone] Leslee Heath, [address] [address] 10/29/2024 8:00 AM EDT [facility] [place] [facility] [address] [phone] [place] [address] [address] 10/29/2024 8:10 AM EDT Anticoagulation Pharmacy, [place] [address] [phone] [place] [facility] [address] [facility] [place] [address] 11/10/2024 11:00 AM EDT [facility] Visit [facility], [place] [address] [phone] Natalia Heller PA-C [address], [place] [address] 11/12/2024 8:20 AM EDT Office Visit [facility], [place] [address] [phone] Natalia Heller PA-C [address] [place] [address] 02/18/2025 12:00 PM EDT Office Visit [facility], [place] [address] [phone] Natalia Heller PA-C [address] [phone] Scheduled Procedures Name Priority Associated Diagnoses Date/Ti [...] D LEVEL ONCE IN A LIFETIME-USE SMARTSET# [id number] Completed 05/09/2024, 06/18/2020, 07/25/2019, Additional history exists [...] this encounter Medical Devices Implanted Type Area Overedge Machine Operator Device Identifier Shelf Expiration Date Model / Serial / Lot Graft Cervical 6x8 [id number] - [id number] Implanted:Qt y: 2 on 08/21/2008 at [place] [facility] [place] Tissue - Human Spine Cervical [employer] Co [id number] / / Screw Spine 14mm 50-014 - [id number] Implanted:Qt y: 2 on 08/21/2008 at [place] [facility] [place] N/A: Spine Cervical CAR[employer] CAR[employer] DEPUY 8-50-014 / / Depuy [place] 14 Mm Sd Con Scr Implanted:Qt y: 2 on 08/21/2008 at [place] [facility] [place] N/A: Spine Cervical [employer] CAR[employer] DEPUY 860-014 / / Description:Depuy [place] 14 mm SD con SCR 34 Mm Plate Implanted:Qt y: 1 on 08/21/2008 at [place] [facility] [place] N/A: Spine Cervical [id number] / / Description:34 mm Depuy plat e 14 Mm Variable Rescue Implanted:Qt y: 2 on 08/21/2008 at [place] [facility] [place] N/A: Spine Cervical 854-014 / / Description:14 mm variable r escue Screw 3.5x14 Mntr Fa [id number] - [id number] Implanted:Qt y: 10 on 07/13/2010 at [place] [facility] [place] N/A: Spine Cervical JNJ : ETH[employer]ON C[employer]IOVATIONS [id number] / / Devaughn [id number] - [id number] Implanted:Qt y: 1 on 07/13/2010 at [place] [facility] [place] N/A: Spine Cervical JNJ : [employer]ON [employer] [id number] / / Screw Inner Mntr [id number] - [id number] Implanted:Qt y: 8 on 07/13/2010 at [place] [facility] [place] N/A: Spine Cervical JNJ : [employer] [id number] / / Nut Outer Xcon [id number] - [id number] Implanted:Qt y: 2 on 07/13/2010 at [place] [facility] [place] N/A: Spine Cervical JNJ : [employer]ON [employer] [id number] / / Screw Inner Xcon [id number] - [id number] Implanted:Qt y: 2 on 07/13/2010 at [place] [facility] [place] N/A: Spine Cervical JNJ : [employer]ON [employer] [id number] / / Plate 35mm Xcon [id number] - [id number] Implanted:Qt y: 1 on 07/13/2010 at [place] [facility] [place] N/A: Spine Cervical JNJ : [employer]ATIONS [id number] / / documented as of this encounter [...] the patient have Health Care Power of Svp Research And Strategic Analysis? No * Full Code Date Activated Date [...] Power of Attor kim? No Care Teams Appointment Manager Relationship Specialty Start Date End Date Natalia Heller PA-C [address] [phone] PCP - General Physician Sternman 08/28/24 documented as of this encounter
--- OUTSIDE RECORDS SUMMARY | 2024-10-21 23:31 | External Medical Summary | Summary of Care ---
Author Name Unknown Organization [facility] Address [address] [facility] [address] Phone [phone] Care Team Providers Care Restaurant Hospitality Manager Name Role Phone Natalia Heller PA-C Primary Care Provider [phone] [phone] Reason for Visit * Reason Comments Dosage Adjustment In Person (Anticoag Cl inic) Encounter Details Date Type Department Care Team (Latest Contact Info) Description 10/14/2024 2:10 PM EDT Anticoagulation Pharmacy, [facility] [address] [place] [phone] [facility] [address] [place] [id number] Anticoagulation management encounter*; History of DVT (deep vein thrombosis); Chronic atrial fibrillation (HCC) Allergies Active Allergy Reactions Criticality Noted Date Comments Alendronate Sodium 06/24/2012 Burning sensation and difficulty breathing Proton Pump Inhibitors Hives 02/20/2002 nexium documented as of this encounter (statuses as of 10/14/2024) Medications Multiple Vitamin (DAILY VALUE MULTIVITAMIN) Tablet [...] skin. 310 units in pump. Getting from [employer] PAP Active Aspirin 81 MG Oral Tablet Delayed Release Take 1 Tablet by mouth in the morning. 4 Active Metoprolol Succinate ER 50 MG Oral Tablet Extended Release 24 Hour (toPROL XL) TAKE ONE TABLET BY MOUTH TWICE A DAY 180 Tablet 3 05/09/2024 8:51 AM EDT 4 025 Active Additional Information Patient taking differently: 12.5 mg once daily, dose decreased [facility] admit 09/26/24, Reported on 10/14/2024 Isosorbide Mononitrate ER 60 MG Oral Tablet Extended Release 24 Hour (Imdur)Indication s:HTN, goal below 130/80,Coronary artery disease involving ely shoshone coronary artery of ely shoshone heart without angina pectoris TAKE ONE TABLET [...] Tablet Sublingual (Nitrostat)Indica tions:Coronary artery disease of ely shoshone artery of ely shoshone heart with stable angina pectoris (HCC) PLACE [...] Oral Tablet (Lasix)Indication s:Coronary artery disease of ely shoshone artery of ely shoshone heart with stable angina pectoris (HCC) Take 1 Tablet by mouth in the morning. 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 90 Capsule 10/13/2024 7:59 AM EDT 5 Active Anoro Ellipta 62.5-25 MCG/ACT Inhalation Aerosol Powder Breath Activated (umeclidinium-iain anterol)Indicatio ns:COPD, moderate (HCC) Inhale 1 Puff by mouth in the morning. 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 Not on f ile Not on [...] this encounter Progress Notes * Shanthi Franks [facility] - 10/14/2024 1:21 PM EDT Images from the original note were not included. Medication Therapy Disease Management - Anticoagulation Patient: Graciela Mobley | : 1950 Subjective Patient-Reported Symptoms: Patient Findings Positives: Hospital admission ([facility] on 09/26/2024 due to Acute Hypoxic respiratory failure causing elevated troponin, chronic diastolic heart failur) Negatives: Signs/symptoms of thrombosis, Signs/symptoms of bleeding, Change in health, Change in alcohol use, Change in activity, Upcoming invasive procedure, Missed doses, Extra doses, Change in medications, Change in diet/appetite, Bruising Objective Current Warfarin Dose As of 10/14/2024 Warfarin maintenance plan: 10 mg (5 mg x 2) every Sun, Tue, Karen; 5 mg (5 mg x 1) all other days INR Result As of 10/14/2024 INR goal: 2.0-3.0 INR used for dosin.7 (10/14/2024) Assessment & Plan Warfarin Plan As of 10/14/2024 Full warfarin instructions: 10/14: 15 mg; Otherwise 10 mg every Sun, Tue, Karen; 5 mg all other days Next INR check: 10/28/2024 Repeat PT/INR in 2 week(s) Weekly dose: not changed Additional Dosing Information: Description I spent a total of 10-19 minutes (exact time 10 mins) on the date of service in preparation, delivery, and documentation of the care provided to Graciela Mobley excluding any time spent in the performance of separately billed services or time spent by another provider/QHP. Shanthi Franks [facility] Clinical Pharmacist 10/14/2024, 1:22 PM documented in this encounter Plan of Treatment Upcoming Encounters Date Type Department Care Team (Late st Contact Info) Description 10/15/2024 10:00 AM EDT Scheduled Telephone [facility], [facility] [address] [place] [address] Coordinator, [facility] [address] [place] [address] 10/23/2024 10:45 AM EDT Office Visit Cardiology [facility] [address] [place], [place] [phone] Ubaldo Tuttle MD [address] [place] [address] 10/28/2024 8:00 AM EDT Office Visit Sleep Disorders Ctr [facility] [place] [phone] Leslee Heath DO [address] [facility] [place] [address] 10/29/2024 8:00 AM EDT Office Visit Pharmacy, [facility] [address] [phone] [facility] [address] [place] [address] 10/29/2024 8:10 AM EDT Anticoagulation Pharmacy, [facility]y [address] [phone] [facility] [address] [place] [address] 11/10/2024 11:00 AM EDT Office Visit Family Practice, [facility] [place] [address] [phone] Natalia Heller PA-C [address], [place] [address] 11/12/2024 8:20 AM EDT Office Visit [facility], [place] [phone] Natalia Heller PA-C [address] [phone] 02/18/2025 12:00 PM EDT Office Visit [facility], [place] [phone] Natalia Heller PA-C [address] [address] Scheduled Procedures Name Priority Associated Diagnoses Date/Ti [...] D LEVEL ONCE IN A LIFETIME-USE SMARTSET# 53233 Completed 05/09/2024, 06/18/2020, 07/25/2019, Additional history exists [...] this encounter Medical Devices Implanted Type Area Fitness Teacher Device Identifier Shelf Expiration Date Model / Serial / Lot Graft Cervical 6x8 [id number] - [id number] Implanted:Qt y: 2 on 08/21/[address] [facility] [place] Tissue - Human Spine Cervical [employer] [id number] / / Screw Spine 14mm [id number] - [id number] Implanted:Qt y: 2 on 08/21/[address] [facility] [place] N/A: Spine Cervical CARSON [employer] CARSON DEPUY 50014 / / Depuy [place] 14 Mm Sd Con Scr Implanted:Qt y: 2 on 08/21/[address] [facility] [place] N/A: Spine Cervical [employer] DEPUY 60014 / / Description:Depuy skyline 14 mm SD con SCR 34 Mm Plate Implanted:Qt y: 1 on 08/21/[address] [facility] [place] N/A: Spine Cervical / / Description:34 mm Depuy plat e 14 Mm Variable Rescue Implanted:Qt y: 2 on 08/21/[address] [facility] [place] N/A: Spine Cervical / / Description:14 mm variable r escue Screw 3.5x14 Mntr Fa [id number] - [id number] Implanted:Qt y: 10 on 07/13/[address] [facility] [place] N/A: Spine Cervical JNJ : [employer] [id number] / / Devaughn [id number] - [id number] Implanted:Qt y: 1 on 07/13/[address] [facility] [place] N/A: Spine Cervical JNJ : ETH[employer]ON [employer]ATIONS [id number] / / Screw Inner Mntr [id number] - [id number] Implanted:Qt y: 8 on 07/13/[address] [facility] [place] N/A: Spine Cervical JNJ : [employer] [id number] / / Nut Outer Xcon [id number] - [id number] Implanted:Qt y: 2 on 07/13/[address] [facility] [place] N/A: Spine Cervical JNJ : [employer] [id number] / / Screw Inner Xcon [id number] - [id number] Implanted:Qt y: 2 on 07/13/[address] [facility] [place] N/A: Spine Cervical JNJ : ETH[employer]ON [employer] [id number] / / Plate 35mm Xcon [id number] - [id number] Implanted:Qt y: 1 on 07/13/[address] 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) DM (diabetes mellitus) type II, controlled, with peripheral vascular disorder ([facility]) Advanced care planning/counseling discussion Other specified counseling COPD, moderate (HCC)- Primary Chronic airway obstruction, not elsewhere classified Chronic diastolic congestive heart failure (HCC) Chronic diastolic heart failure Senile osteoporosis Acquired absence of other toe(s), unspecified side ([facility]) Hospital discharge follow-up- Primary Other follow-up examination Acute on chronic diastolic congestive heart failure (HCC) Acute on chronic diastolic heart failure 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 No * Full Code Date Activated [...] Power of Attor kim? No Care Teams Restaurant Hospitality Manager Relationship Specialty Start Date End Date Natalia Heller PA-C [address] [place] [id number] PCP - General Physician Wedding Decorator 08/28/24 documented as of this encounter
--- OUTSIDE RECORDS SUMMARY | 2024-10-21 23:32 | External Medical Summary ---
Author Name Unknown Address Unknown Organization : Laboratory Report Ordering Provider Test Date Status KACEY VALENTINE 10/14/2024 13:24:18 Final Therapeutic ranges for non-o perative patients:
Prophylaxsis/treatment of DVT: (Range:2.0-3.0)
Treatment of pulmonary embolism:(Range:2.0-3.0)
Prevention of systemic embolism from:
-tissue heart valves
-acute myocardial infarction
-valvular heart disease
-atrial fibrillation
(Range: 2.0-3.0)
Mechanical prosthetic valves: (Range: 2.5-3.5) Observation Date Value Abnormality Reference (Units ) Status INR in Capillary blood by Coagulation assay 10/14/2024 13:24:18 1.7 (INR) Final Performing Location
--- OUTSIDE RECORDS SUMMARY | 2024-10-21 23:32 | External Medical Summary | Summary of Care ---
Author Name Unknown Organization [facility] Address [address] [facility] [place] [address] Phone [phone] Care Team Providers Care Brand Strategy Manager Name Role Phone Natalia Heller PA-C Primary Care Provider [phone] [phone] Reason for Visit * Reason Onset Date Comments [facility]: Maintenance 10/09/2024 Encounter Details Date Type Department Care Team (Late st Contact Info) Description 10/09/2024 Telephone [facility], [address] [place] [address] Consuelo Faith, ELECTRICAL ACCESSORIES ASSEMBLER [address] [facility] [place] [address] [facility]: Maintenance Allergies Active Allergy Reactions Criticality Noted Date Comments Alendronate Sodium 06/24/2012 Burning sensation and difficulty breathing Proton Pump Inhibitors Hives 02/20/2002 nexium documented as of this encounter (statuses as of 10/09/2024) Medications Multiple Vitamin (DAILY VALUE MULTIVITAMIN) Tablet [...] controlled, with peripheral vascular disorder ([facility]) Use as directed. 10/04/19 24 Active Accu-Chek Softclix LancetsIndications :Type 2 diabetes mellitus with foot ulcer, with long-term current use of insulin (HCC),DM (diabetes mellitus) type II, controlled, with peripheral vascular disorder ([facility]) Use to test blood glucose [...] mouth in the morning. 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 Active Famotidine 40 MG Oral Tablet (Pepcid)Indication [...] 5 3:05 PM EST 09/12/19 25 Active Potassium Chloride ER 10 MEQ Oral Capsule Extended Release Take 1 Capsule by mouth once a day on Sunday, Sunday, and Sunday only. 45 Capsule 3 12/12/19 24 025 Discontin ued(Refil l) Hospital, Clinic, or Other Facility Administered Medication Ordered Dose Route Frequency Start Date End Date Status Albuterol Sulfate (Proventil) (2.5 MG/3ML) 0.083% inhalation solution 2.5 mgIndications:COPD with exacerbation (HCC),SOB (shortness of breath),Asthma with COPD (chronic obstructive pulmonary disease) (HCC) 2.5 mg NEBULIZER PRN 08/21/2024 08/21/2025 Active documented as of this encounter (statuses as of 10/09/2024) Active Problems Problem Noted Date Diagnosed Date [...] Appears euvolemic Chronic GARCIA , likely multifactorial Acquired absence of other toe(s), unspecified si de 09/30/2024 Assessment & Plan (09/30/2024 11:32 AM EST): First toe of right foot Diabetic polyneuropathy asso ciated with type 1 [...] 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 Not on f ile Not on [...] of Assessment Author No 05/02/2019 3:21 PM Slein Park RN documented as of this encounter Mental Status * Because of a physical, mental, or emotional condition, do you have serious difficulty concentrating, remembering, or making decisions? (5 years old or older) Answer Entry Date Author No 05/02/2019 3:21 PM Selin Park RN documented in this encounter Miscellaneous Notes * Telephone Encounter - Consuelo Faith LPN - 10/09/2024 11:26 AM EST Patient d/c from [facility] 10/[address] [facility] schedule Qing Jensen to schedule ALBARO Sunday. Ok by Ankita documented in this encounter Plan of Treatment Upcoming Encounters Date Type Department Care Team (Late st Contact Info) Description 10/11/2024 11:30 AM EST Home Visit [facility], [facility] [address] [place] [address] [facility], Nurse [facility] [address] [place] [address] 10/14/2024 1:00 PM EDT [facility] [address] [place] [phone] Natalia Heller PA-C [address] [place] [address] 10/28/2024 8:00 AM EDT Office Visit Sleep Disorders Ctr [facility] [address] [place] [phone] Leslee Heath DO [address] [place] [address] 10/28/2024 10:10 AM EDT Anticoagulation Pharmacy, Corky [place] [address] [place] [phone] [facility] [address] [facility] [address] 10/28/2024 10:20 AM EDT Office Visit Pharmacy, Corky [place] [address] [place] [phone] [facility] [address] [place] [facility] [place] [address] 11/10/2024 11:00 AM EDT Office Visit [facility], Corky [place] [address] [place] [phone] Natalia Heller PA-C [address] [place] [phone] 02/18/2025 12:00 PM EDT Office Visit [facility]y [place] [address] [place] [address] Natalia Heller PA-C [address] [place] [address] Scheduled Procedures Name Priority Associated Diagnoses Date/Ti [...] D LEVEL ONCE IN A LIFETIME-USE SMARTSET# [id number] Completed 05/09/2024, 06/18/2020, 07/25/2019, Additional history exists [...] this encounter Medical Devices Implanted Type Area Space Control Agent Device Identifier Shelf Expiration Date Model / Serial / Lot Graft Cervical 6x8 [id number] - [id number] Implanted:Qt y: 2 on 08/21/2008 at OR [facility] [place] Tissue - Human Spine Cervical [employer] [id number] / / Screw Spine 14mm - [id number] Implanted:Qt y: 2 on 08/21/2008 at OR [facility] [place] N/A: Spine Cervical [employer] CAR[employer] DEPUY [id number] / / Depuy [place] 14 Mm Sd Con Scr Implanted:Qt y: 2 on 08/21/2008 at OR [facility] [place] N/A: Spine Cervical [employer] DEPUY 60 / / Description:Depuy skyline 14 mm SD con SCR 34 Mm Plate Implanted:Qt y: 1 on 08/21/2008 at OR [facility] [place] N/A: Spine Cervical / / Description:34 mm Depuy plat e 14 Mm Variable Rescue Implanted:Qt y: 2 on 08/21/2008 at OR [facility] [place] N/A: Spine Cervical / / Description:14 mm variable r escue Screw 3.5x14 Mntr Fa [id number] - [id number] Implanted:Qt y: 10 on 07/13/2010 at OR [facility] [place] N/A: Spine Cervical JNJ : ETHICON CARDIOVATIONS [id number] / / Devaughn [id number] - [id number] Implanted:Qt y: 1 on 07/13/2010 at OR [facility] [place] N/A: Spine Cervical JNJ : ETH[employer]ON [employer]ARD[employer] [id number] / / Screw Inner Mntr [id number] - [id number] Implanted:Qt y: 8 on 07/13/2010 at OR [facility] [place] N/A: Spine Cervical JNJ : [employer]ON [employer] [id number] / / Nut Outer Xcon [id number] - [id number] Implanted:Qt y: 2 on 07/13/2010 at OR [facility] [place] N/A: Spine Cervical JNJ : [employer] [id number] / / Screw Inner Xcon [id number] - [id number] Implanted:Qt y: 2 on 07/13/2010 at OR [facility] [place] N/A: Spine Cervical JNJ : [employer] [id number] / / Plate 35mm Xcon [id number] - [id number] Implanted:Qt y: 1 on 07/13/2010 at OR [facility] [place] N/A: Spine Cervical JNJ : [employer] [id number] / / documented as of this encounter [...] the patient have Health Care Power of Surgical Lead? No * Full Code Date Activated [...] Power of Attor kim? No Care Teams Brand Strategy Manager Relationship Specialty Start Date End Date Natalia Heller PA-C [address] [place] [address] PCP - General Physician Taker Away 08/28/24 documented as of this encounter
--- OUTSIDE RECORDS SUMMARY | 2024-10-21 23:32 | External Medical Summary | Summary of Care ---
Author Name Unknown Organization [facility] Address [address] [place] [address] Phone [phone] Care Team Providers Care Melter Supervisor Oxygen Furnace Name Role Phone Natalia Heller PA-C Primary Care Provider [phone] [phone] Reason for Visit * Reason Onset Date Comments [facility]: Engagement 10/09/2024 Encounter Details Date Type Department Care Team (Late st Contact Info) Description 10/09/2024 Telephone [facility], [place] [address] [place] [phone] Qing Rucker, SHAKIRA [address] [place] [address] [facility]: Engagement Allergies Active Allergy Reactions Criticality Noted Date [...] [facility]) Use as directed. 10/04/19 24 [...] skin. 310 units in pump. 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 Not on f [...] encounter Miscellaneous Notes * Telephone Encounter - Qing Rucker OSA - 10/09/2024 11:29 AM EST TT request to set up ALBARO for Sat, approved by Ankita. documented in this encounter Plan of Treatment Upcoming Encounters Date Type Department Care Team (Late st Contact Info) Description 10/11/2024 11:30 AM EST Home Visit [facility], [facility] [address] [place] [address] [facility], Nurse [facility] [address] [place] [address] 10/14/2024 1:00 PM EDT Office Visit Family Practice, [place] [address] [place] [phone] Nataila Heller PA-C [address] [place] [address] 10/28/2024 8:00 AM EDT Office Visit Sleep Disorders Ctr [facility] [address] [place] [phone] Leslee Heath DO [address] [place] [address] 10/28/2024 10:10 AM EDT Anticoagulation Pharmacy, [place]y [address] [place] [phone] [facility] [address] [facility] [address] 10/28/2024 10:20 AM EDT Office Visit Pharmacy, [place] [address] [place] [phone] [facility] [address] [facility] [place] [address] 11/10/2024 11:00 AM EDT Office Visit [facility], [place] [address] [phone] Natalia Heller PA-C [address] [place] [address] 02/18/2025 12:00 PM EDT Office Visit [facility], [place] [address] [phone] Natalia Heller PA-C [address] [place] [address] Scheduled Procedures Name Priority Associated Diagnoses Date/Ti [...] D LEVEL ONCE IN A LIFETIME-USE SMARTSET# 63505 Completed 05/09/2024, 06/18/2020, 07/25/2019, Additional history exists [...] encounter Medical Devices Implanted Type Area Chemist Intern Device Identifier Shelf Expiration Date Model / Serial / Lot Graft Cervical 6x8 [id number] - [id number] Implanted:Qt y: 2 on 08/21/2008 at OR [facility] [place] Tissue - Human Spine Cervical Lifenet Co [id number] / / Screw Spine 14mm - [id number] Implanted:Qt y: 2 on 08/21/2008 at OR [facility] [place] N/A: Spine Cervical CARSON [employer] CARSON DEPUY / / Depuy [place] 14 Mm Sd Con Scr Implanted:Qt y: [...] variable r escue Screw 3.5x14 Mntr Fa [id number] - [id number] Implanted:Qt y: 10 on 07/13/2010 at OR [facility] [place] N/A: Spine Cervical JNJ : ETHICON CARDIOVATIONS [id number] / / Devaughn [id number] - [id number] Implanted:Qt y: 1 on 07/13/2010 at OR [facility] [place] N/A: Spine Cervical JNJ : ETHICON CARDIOVATIONS [id number] / / Screw Inner Mntr [id number] - [id number] Implanted:Qt y: 8 on 07/13/2010 at OR [facility] [place] N/A: Spine Cervical JNJ : ETHICON CARDIOVATIONS [id number] / / Nut Outer Xcon [id number] - [id number] Implanted:Qt y: 2 on 07/13/2010 at OR [facility] [place] N/A: Spine Cervical JNJ : ETHICON CARDIOVATIONS [id number] / / Screw Inner Xcon [id number] - [id number] Implanted:Qt y: 2 on 07/13/2010 at OR [facility] [place] N/A: Spine Cervical JNJ : ETHICON CARDIOVATIONS [id number] / / Plate 35mm Xcon [id number] - [id number] Implanted:Qt y: 1 on 07/13/2010 at OR [facility] [place] N/A: Spine Cervical JNJ : ETHICON CARDIOVATIONS [id number] / / documented as of this encounter Advance Directives * Full Code (Latest Code Status on File) Date Activated Date Inactivated Comments 11/12/2023 12:44 PM 11/13/2023 9:17 PM This order r eflects the patients wishes and were consensually agreed upon. Question Answer Comments Discussion of Advance Direct sandie occurred with: Not Discussed due to patient's condition Does the patient have a Living Will? No Does the patient have Health Care Power of Sewing Trimmer? No * Full Code Date Activated Date [...] Power of Attor kim? No Care Teams Melter Supervisor Oxygen Furnace Relationship Specialty Start Date End Date Natalia Heller PA-C [facility] [place] [address] PCP - General Physician Heavy Equipment Operating Engineer 08/28/24 documented as of this encounter
--- OUTSIDE RECORDS SUMMARY | 2024-10-21 23:32 | External Medical Summary | Summary of Care ---
Author Name Unknown Organization [facility] Address [address] [facility] [place] [address] Phone [phone] Care Team Providers Care Show Design Supervisor Name Role Phone Natalia Heller PA-C Primary Care Provider [phone] [phone] Reason for Visit * Reason Onset Date Comments Other 10/13/2024 Encounter Details Date Type Department Care Team (Late st Contact Info) Description 10/13/2024 Telephone Pharmacy, [place] [address] [place] [address] [facility] [address], [place] [phone] Other Allergies Active Allergy Reactions Criticality Noted Date [...] type II, controlled, with peripheral vascular disorder ([facility]) Use to test blood glucose [...] skin. 310 units in pump. Getting from [employer] PAP Active Aspirin 81 MG Oral Tablet Delayed Release Take 1 Tablet by mouth in the morning. 12/11/19 24 Active Metoprolol Succinate ER 50 MG Oral Tablet Extended Release 24 Hour (toPROL XL) TAKE ONE TABLET BY MOUTH TWICE A DAY 180 Tablet 3 05/09/2024 8:51 AM EDT 01/07/20 24 025 Active Additional Information Patient taking differently: 12.5 mg once daily, dose decreased [facility] admit 09/26/24, Reported on 10/11/2024 Isosorbide Mononitrate ER 60 MG Oral Tablet Extended Release 24 Hour (Imdur)Indications :HTN, goal below 130/80,Coronary artery disease involving lower sioux coronary artery of lower sioux heart without angina pectoris TAKE ONE TABLET [...] Tablet Sublingual (Nitrostat)Indicat ions: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 IF NO RELIEF CALL 911 OR GO TO ER 25 Tablet 11 02/08/2024 8:35 AM EDT 02/05/20 24 025 Active Additional Information Patient not taking.Reported on 10/11/2024 Sertraline HCl 50 MG Oral Tablet (Zoloft) TAKE 1 AND 1/2 TABLETS BY MOUTH AT BEDTIME 135 Tablet 1 05/06/20 24 Active Additional Information Patient not taking.Reported on 10/11/2024 Pregabalin 150 MG Oral Capsule (Lyrica)Indication s:Diabetic polyneuropathy associated with type 1 diabetes mellitus (HCC) TAKE ONE CAPSULE BY MOUTH TWICE A DAY 180 Capsule 1 05/10/2024 8:07 AM EDT 05/09/20 24 025 Active Additional Information Patient not taking.Reported on 10/11/2024 Mirtazapine 30 MG Oral Tablet (Remeron)Indicatio ns:Primary insomnia,Poor appetite Take 1 Tablet by mouth at bedtime. 30 Tablet 06/02/20 24 Active Additional Information Patient not taking.Reported on 10/11/2024 Albuterol Sulfate HFA 108 (90 Base) MCG/ACT [...] 09/19/2024 3:05 PM EST 09/12/19 25 Active Furosemide 20 MG Oral Tablet (Lasix)Indications :Coronary artery disease of lower sioux artery of lower sioux heart with stable angina pectoris (HCC) Take 1 Tablet by mouth in the morning. 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 90 Capsule 10/13/2024 7:59 AM EDT 10/10/19 Active Hospital, Clinic, or Other Facility Administered [...] artery disease of n ative artery of lower sioux heart with stable angina pectoris 12/08/2020 Assessment [...] the room") Medication Regimen All Classes - HCRISS Remote Patient Monitoring Vendor: No Connected RPM Device(s): Traditional Pulse Ox Exacerbation plan Solumedrol 40mg IM/IV Chest Xray Additional Comments: Breathing at baseline today Senile osteoporosis 02/02/2012 Assessment & Plan (09/30/2024 11:32 AM EST): DYSLIPIDEMIA, GOAL LDL BELOW 100 07/15/2009 Overview (07/15/2009): Per Lipid Taxonomy. 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 Not on f ile [...] No 05/02/2019 3:21 PM EDT Selin Phelps, LO * Do you have serious difficulty [...] Notes * Telephone Encounter - Shanthi Franks RP - 10/14/2024 7:19 AM EDT Returned call to [facility] and informed that pt needs to bolus prior to eating, the insulin pump willnot do it for her. Shanthi Franks, Sarahy, BCACP Clinical Pharmacist Medication Therapy Disease Management 10/14/2024, 7:21 AM * Telephone Encounter - Joann Eaton PHARM Tech - 10/13/2024 3:31 PM EDT Caller's name: Zayra Preferred call back number(OFFICE NUMBER FOR ): [phone] - she is also with the pt at the time of the call, can also call pt if calling directly to speak with Zayra. Reason for call: Calling from [facility], asking to speak to someone about Gayles DM Pump. She is asking if pt needs to be giving herself a bolus or if the pump will be automatically doing this. Thank you, Joann Eaton Animal Science Instructor [facility] ([facility]) 10/13/2024, 3:31 PM documented in this encounter Plan of Treatment Upcoming Encounters Date Type Department Care Team (Late st Contact Info) Description 10/14/2024 1:00 PM EDT Office Visit [place]y [place] [address] [phone] Natalia Heller PA-C [address] [place] [address] 10/21/2024 10:00 AM EDT Scheduled Telephone [facility], [facility] [address] [place] [address] Coordinator, [facility] [address] [place] [address] 10/28/2024 8:00 AM EDT [facility] [address] [place] [phone] Leslee Heath [address] [place] [address] 10/28/2024 10:10 AM EDT Anticoagulation Pharmacy, Corky Herbert [address] [place] [phone] [facility] [address] [facility] [place] [address] 10/28/2024 10:20 AM EDT Office Visit Pharmacy, Corky Herbert [address]auri [address] [place] [phone] [place] [address] [facility] [place] [address] 11/10/2024 11:00 AM EDT Office Visit Family Practice, Corky Renvu [address] [place] [phone] Natalia Heller PA-C [address] [place] [address] 02/18/2025 12:00 PM EDT Office Visit Family Practice, Corky Herbert Juan [address] [place] [phone] Natalia Heller PA-C [address] [place] [address] Scheduled Procedures Name Priority Associated Diagnoses Date/Ti [...] ASSESSMENT COMPLETED IN PAST YEAR FOR COPD 10/11/2025 10/11/2024 Pneumococcal Vaccine: 50+ Years Completed 01/20/2016, 01/15/2015, 09/18/2006, Additional history exists Colonoscopy Discontinued 09/18/2023, 09/06, 11/16/2020, Additional history exists Colorectal Cancer Screening Discontinued RETIRED - COLONOSCOPY-EVERY 2 YRS AGES 18-100 Discontinued 09/18/2023, 09/18/2023, 11/16/2020, Additional history exists Influenza Vaccine (FLU shot) Completed 04/15/2024, 04/04/2023, 05/08/2022, Additional history exists Alpha-1 Antitrypsin Completed 05/09/2024 VITAMIN D LEVEL ONCE IN A LIFETIME-USE SMARTSET# [id number] Completed 05/09/2024, 06/18/2020, 07/25/2019, Additional history exists [...] this encounter Medical Devices Implanted Type Area Municipal Bond Trader Device Identifier Shelf Expiration Date Model / Serial / Lot Graft Cervical 6x8 [id number] - [id number] Implanted:Qt y: 2 on 08/21/2008 at OR [facility] [place] Tissue - Human Spine Cervical Lif[employer]et Co [id number] / / Screw Spine 14mm - - [id number] Implanted:Qt y: 2 on 08/21/2008 at OR [facility] [place] N/A: Spine Cervical CARSON & CARSON DEPUY [id number] / / Depuy [place] 14 Mm Sd Con Scr Implanted:Qt y: 2 on 08/21/2008 at OR [facility] [place] N/A: Spine Cervical CARSON [employer] CARSON DEPUY 60014 / / Description:Depuy [place] 14 mm SD con SCR 34 Mm Plate Implanted:Qt y: 1 on 08/21/2008 at OR [facility] [place] N/A: Spine Cervical 1867-09- / / Description:34 mm Depuy plat e 14 Mm Variable Rescue Implanted:Qt y: 2 on 08/21/2008 at OR [facility] N/A: Spine Cervical 1868-54-014 / / Description:14 mm variable r escue Screw 3.5x14 Mntr Fa [id number] - [id number] Implanted:Qt y: 10 on 07/13/2010 at OR [facility] N/A: Spine Cervical JNJ : ETHICON CARDIOVATIONS [id number] / / Devaughn [id number] - [id number] Implanted:Qt y: 1 on 07/13/2010 at OR [facility] [place] N/A: Spine Cervical JNJ : ETHICON CARDIOVATIONS [id number] / / Screw Inner Mntr [id number] - [id number] Implanted:Qt y: 8 on 07/13/2010 at OR [facility] N/A: Spine Cervical JNJ : ETHICON CARDIOVATIONS [id number] / / Nut Outer Xcon [id number] - [id number] Implanted:Qt y: 2 on 07/13/2010 at OR [facility] N/A: Spine Cervical JNJ : ETHICON CARDIOVATIONS [id number] / / Screw Inner Xcon [id number] - [id number] Implanted:Qt y: 2 on 07/13/2010 at OR [facility] N/A: Spine Cervical JNJ : ETHICON CARDIOVATIONS [id number] / / Plate 35mm Xcon [id number] - [id number] Implanted:Qt y: 1 on 07/13/2010 at OR [facility] N/A: Spine Cervical JNJ : ETHICON CARDIOVATIONS [id number] / / documented as of this encounter [...] the patient have Health Care Power of Electroencephalographic Technologist? No * Full Code Date Activated [...] Power of Attor kim? No Care Teams Show Design Supervisor Relationship Specialty Start Date End Date Natalia Heller PA-C [facility] [place] [address] PCP - General Physician Track Grinder 08/28/24 documented as of this encounter
--- OUTSIDE RECORDS SUMMARY | 2024-10-21 23:32 | External Medical Summary | Summary of Care ---
Author Name Unknown Organization [facility] Address [address] [facility] [place] [address] Phone [phone] Care Team Providers Care Forestry Scientist Name Role Phone Natalia Heller PA-C Primary Care Provider [phone] [phone] Encounter Details Date Type Department Care Team (Late st Contact Info) Description 10/08/2024 Orders Only [facility] [place] [address] [phone] Natalia Heller PA-C [address] [place] [address] Allergies Active Allergy Reactions Criticality Noted Date Comments Alendronate Sodium 06/24/2012 Burning sensation and difficulty breathing Proton Pump Inhibitors Hives 02/20/2002 nexium documented as of this encounter (statuses as of 10/08/2024) Medications Multiple Vitamin (DAILY VALUE MULTIVITAMIN) Tablet Take 1 Tablet by mouth in the morning. Active Fluticasone Propionate 50 MCG/ACT Nasal Suspension (Flonase)Indicatio ns:Chronic rhinitis Administer 2 Sprays into each nostril in the morning. 16 g 1 11/02/19 23 Active Accu-Chek Guide Me w/Device KitIndications:Typ e 2 diabetes mellitus with foot ulcer, with long-term current use of insulin ([facility]),DM (diabetes mellitus) type II, controlled, with peripheral vascular disorder (HCC) Use as directed. 10/04/19 24 Active Accu-Chek Softclix LancetsIndications :Type 2 diabetes mellitus with foot ulcer, with long-term current use of insulin (HCC),DM (diabetes mellitus) type II, controlled, with peripheral vascular disorder ([facility]) Use to test blood glucose 4 [...] skin. 310 units in pump. 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 Not on f ile Not [...] Care Team (Late st Contact Info) Description 10/28/2024 8:00 AM EDT Office Visit Sleep Disorders Ctr [facility] [address] [place] [phone] Leslee Heath DO [address] [place] [phone] 10/28/2024 10:10 AM EDT Antico[place], [place] [address] [place] [phone] [facility] [address] [facility] [place] [phone] 10/28/2024 10:20 AM EDT Office Visit Pharmacy, [place] [address] [place] [phone] [facility] [address] [facility] [address] 11/10/2024 11:00 AM EDT Office Visit [facility], [place] [address] [place] [phone] Natalia Heller PA-C [address] [place] [address] 02/18/2025 12:00 PM EDT Office Visit [facility], [place] [phone] Natalia Heller PA-C [address] [place] [address] Scheduled Procedures Name Priority Associated Diagnoses Date/Ti [...] D LEVEL ONCE IN A LIFETIME-USE SMARTSET# [id number] Completed 05/09/2024, 06/18/2020, 07/25/2019, Additional history exists [...] this encounter Medical Devices Implanted Type Area Conditioning Machine Operator Device Identifier Shelf Expiration Date Model / Serial / Lot Graft Cervical 6x8 [id number] - [id number] Implanted:Qt y: 2 on 08/21/2008 at [place] [facility] [place] Tissue - Human Spine Cervical Lifenet Co [id number] / / Screw Spine 14mm 50-014 - [id number] Implanted:Qt y: 2 on 08/21/2008 at OR [facility] [place] N/A: Spine Cervical CARSON & CARSON DEPUY 1867-50-014 / / Depuy [place] 14 Mm Sd Con Scr Implanted:Qt y: 2 on 08/21/2008 at OR [facility] [place] N/A: Spine Cervical CARSON [employer] CARSON DEPUY 60-014 / / Description:Depuy [place] 14 mm SD con SCR 34 Mm Plate Implanted:Qt y: 1 on 08/21/2008 at OR [facility] [place] N/A: Spine Cervical 034 / / Description:34 mm Depuy plat e 14 Mm Variable Rescue Implanted:Qt y: 2 on 08/21/2008 at OR [facility] [place] N/A: Spine Cervical [address] / / Description:14 mm variable r escue Screw 3.5x14 Mntr Fa [id number] - [id number] Implanted:Qt y: 10 on 07/13/2010 at [place] [facility] [place] N/A: Spine Cervical JNJ : ETHICON CARDIOVATIONS [id number] / / Devaughn [id number] - [id number] Implanted:Qt y: 1 on 07/13/2010 at [place] [facility] [place] N/A: Spine Cervical JNJ : ETHICON CARDIOVATIONS [id number] / / Screw Inner Mntr [id number] - [id number] Implanted:Qt y: 8 on 07/13/2010 at OR [facility] [place] N/A: Spine Cervical JNJ : ETHICON CARDIOVATIONS [id number] / / Nut Outer Xcon [id number] - [id number] Implanted:Qt y: 2 on 07/13/2010 at [place] [facility] [place] N/A: Spine Cervical JNJ : ETHICON CARDIOVATIONS [id number] / / Screw Inner Xcon [id number] - [id number] Implanted:Qt y: 2 on 07/13/2010 at OR [facility] [place] N/A: Spine Cervical JNJ : ETHICON CARDIOVATIONS [id number] / / Plate 35mm Xcon [id number] - [id number] Implanted:Qt y: 1 on 07/13/2010 at [place] [facility] [place] N/A: Spine Cervical JNJ : ETHICON CARDIOVATIONS [id number] / / documented as of this encounter Procedures Procedure Name Priority Date/Time Associated Diagnosis Comments XR CHEST 1 VIEW Routine 10/05/2024 documented in this encounter Results * XR CHEST 1 VIEW (10/05/2024) Anatomical Region Laterality Modality Chest Other 10/05/2024 Ralph Skelton PA-C RADIOLOGY ([facility]) Fin al Result documented in this encounter Advance Directives * [...] the patient have Health Care Power of Drywall Finisher? No * Full Code Date Activated [...] Power of Attor kim? No Care Teams Forestry Scientist Relationship Specialty Start Date End Date Natalia Heller PA-C [facility] [place] [phone] PCP - General Physician Beverage Host 08/28/24 documented as of this encounter
--- OUTSIDE RECORDS SUMMARY | 2024-10-21 23:32 | External Medical Summary | Summary of Care ---
Author Name Unknown Organization [facility] [address] [address] Phone [phone] Care Team Providers Care Paper Cone Maker Name Role Phone Natalia Heller PA-C Primary Care Provider [phone] Encounter Details Date Type Department Care Team (Late st Contact Info) Description 10/11/2024 11:30 AM EST [facility] [address] [facility] [place] [address] [facility], Nurse [facility] [address] [facility] [place] [address] Allergies Active Allergy Reactions Criticality Noted Date Comments Alendronate Sodium 06/24/2012 Burning sensation and difficulty breathing Proton Pump Inhibitors Hives 02/20/2002 nexium documented as of this encounter (statuses as of 10/11/2024) Medications Multiple Vitamin (DAILY VALUE MULTIVITAMIN) Tablet [...] skin. 310 units in pump. Getting from [employer] PAP Active Aspirin 81 MG Oral Tablet Delayed Release Take 1 Tablet by mouth in the morning. 12/11/19 24 Active Metoprolol Succinate ER 50 MG Oral Tablet Extended Release 24 Hour (toPROL XL) TAKE ONE TABLET BY MOUTH TWICE A DAY 180 Tablet 3 05/09/2024 8:51 AM EDT 01/07/20 24 025 Active Additional Information Patient taking differently: 12.5 mg once daily, dose decreased [facility] admit 09/26/24, Reported on 10/11/2024 Isosorbide Mononitrate ER 60 MG Oral Tablet Extended Release 24 Hour (Imdur)Indications :HTN, goal below 130/80,Coronary artery disease involving [place] coronary artery of [place] heart without angina pectoris TAKE ONE [...] Sublingual (Nitrostat)Indicat ions:Coronary artery disease of [place] artery of [...] Oral Tablet (Lasix)Indications :Coronary artery disease of [place] artery of [place] heart with stable angina pectoris (HCC) Take 1 Tablet by mouth in the morning. 90 Tablet 10/10/19 25 Active Potassium Chloride ER 10 MEQ Oral Capsule Extended ReleaseIndications :Coronary artery disease of [place] artery of [place] heart with stable angina pectoris (HCC) Take 1 Capsule by mouth in the morning. 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) (HCC) 2.5 mg NEBULIZER PRN 08/21/2024 08/21/2025 Active documented as of this encounter (statuses as of 10/11/2024) Active Problems Problem Noted Date Diagnosed Date [...] Appears euvolemic Chronic BELCHER , likely multifactorial Acquired absence of other [...] creek heart with stable angina pectoris 12/08/2020 Assessment [...] as of this encounter (statuses as of 10/11/2024) Resolved Problems Problem Noted Date Diagnosed Date [...] 6 months Hypopotassemia 08/22/2008 07/17/2011 [facility] 08/20/2008 07/17/2011 Statin intolerance [...] as of this encounter (statuses as of 10/11/2024) Immunizations Name Administration Dates Next Due COVID-19 mRNA, LNP-s, No Pre serve, 2-Dose Series (Moderna) 10/13/2020,09/15/2020 COVID-19, mRNA, LNP-s, PF, B ooster, 100mcg/0.5mg (Moderna) 07/20/2021 Covid-19, Mrna, Lnp-s, Pf, B ivalent, 30 Mcg, IM, 12 yrs and above (Privatext) 05/08/2022 Pneumococcal Conjugate Vacc, 13 Valent (Prevnar) [...] Not on file 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 Not on f ile Not on file Not on file documented as of this encounter Last Filed Vital Signs Vital Sign Reading Time Taken Comments Blood Pressure 138/72 10/11/2024 3:15 PM EST Pulse 80 10/11/2024 3:15 PM EST Temperature 36.8 C (98.2 F) 10/11/2024 3 :15 PM EST Respiratory Rate 24 10/11/2024 3:15 PM EST Oxygen Saturation 95% 10/11/2024 3:1 5 PM EST Inhaled Oxygen Concentration - - Weight 91.2 kg (201 lb) 10/11/2024 3:15 PM EST afternoon weight-after eating and drinking throughout day Height - - Body Mass Index 33.45 08/21/2024 11:12 AM EST documented in this [...] documented in this encounter Progress Notes * Yenny Noel RN - 10/11/2024 11:30 AM EST Current Concerns: ALBARO#1 follow up visit [facility] discharge summary not available at time visit No connectivity in home to access EMR Pt located d/c instructions--1 page of information regarding medication changes. Admitted 09/26-10/08/24 Acute on chronic heart failure, Asthma/COPD Per pt she was having increasing difficulty breathing and reported to the hospital. Pt states she does not have a very good memory. She does not recall dx of heart failure. Notes she receive IV medication to help her breathing and had a ortega catheter. Denies difficulty urinating/dysuria or other s/s of UTI since d/c home. States HH has stopped to see her and updated her pill box. Pt states typically she manages her own pill box. Pt denies missing medications, forgetting to take medications--states her spouse provides remindersand ensure she is not missing doses. Has a scale, did not check her weight today Cannot recall her last weight or weight prior to admission Per [facility] d/c weight 202.8 lbs Pt ambulated to home scale with walker--gait is steady with walker No difficulty stepping up to scale, takes a couple seconds to keep balance. Weight-201.0 lbs today--afternoon weight, after eating and drinking. Lung sounds clear on auscultation Breathing is non labored at rest, noted BELCHER with short distance ambulating to scale. No LE edema on exam today--has legs elevated sitting in recliner chair Abdomen is soft, non tender, non distended---insulin pump in place Pt has CGM in place. Bsg has been running high her pt--300 States she contacts her [place] pharmacist when bsg persistently elevated. Today pt denies chest pain, increased sob/belcher, cough/congestion, wheezing, fever/chills, nausea/vomiting/diarrhea. Appetite has been at baseline Using albuterol inhaler 4 times a day every day for sob, notes some relief. Medication changes Metoprolol dose was decreased to 12.5 mg daily Lasix dose increased from 20 mg -, to once daily Stopped-sertraline, trazodone, lyrica Pt states she is not having any issues since medication changes. States she was having chest pain and lightheadedness while in the hospital- denies since return home. Pt states she has PCP f/u in place 10/14. Unclear if pt currently follows with cardiology. ALBARO#2 PCP visit 10/14/24 ALBARO#3 phone nurse follow up ALBARO#4 MTM DM follow up Physical Exam: Physical Exam Constitutional: General: She is not in acute distress. HENT: Head: Normocephalic and atraumatic. Cardiovascular: Rate and Rhythm: Normal rate and regular rhythm. Pulmonary: Effort: Pulmonary effort is normal. No respiratory distress. Breath sounds: Normal breath sounds. No wheezing, rhonchi or rales. Abdominal: General: Bowel sounds are normal. There is no distension. Tenderness: There is no abdominal tenderness. Musculoskeletal: Right lower leg: No edema. Left lower leg: No edema. Skin: General: Skin is warm and dry. Neurological: Mental Status: She is alert and oriented to person, place, and time. Review of Systems: Review of Systems Constitutional: Positive for fatigue. HENT: Negative. Respiratory: Positive for shortness of breath. Negative for cough, chest tightness and wheezing. Cardiovascular: Negative. Gastrointestinal: Negative. Genitourinary: Negative. Musculoskeletal: Positive for gait problem. Skin: Negative. Neurological: Positive for weakness. Negative for dizziness, light-headedness and headaches. Hematological: Bruises/bleeds easily. Psychiatric/Behavioral: Negative. Care Plan Goal Progress: Patient will maintain management & treatment regimen. (Progressing) Start: 05/19/24 Expected End: 09/04/24 GS - Patient/caregiver will verbalize an understanding of diagnosis, treatment and self management of chronic obstructive pulmonary disease (COPD) (Not Progressing) Start: 05/19/24 Expected End: 09/05/24 Goal Note Using albuterol inhaler 4 times a day Not on any other inhalers per pt Patient will maintain adequate nutritional intake. (Not Progressing) Start: 05/19/24 Expected End: 09/04/24 Patient will remain free from infection. (Progressing) Start: 05/19/24 Expected End: 09/04/24 Orders Placed: No orders of the defined types were placed in this encounter. Medications Given: none Care Gaps: Care Gaps Care gaps closed this contact: Education;Medications;Plan of Care (POC) (10/11/241651) Type of education: Clinical/disease;Educated on the benefits of connecting with their PCP () Type of medication care gap: Medication adherence (10/11/241651) Type of plan of care (POC) care gap: Education and review of exacerbation plan (10/11/241651) documented in this encounter Plan of Treatment Upcoming Encounters Date Type Department Care Team (Late st Contact Info) Description 10/14/2024 1:00 PM EDT Office Visit [facility] [address] [phone] Natalia Heller PA-C [address] [phone] 10/21/2024 10:00 AM EDT Scheduled Telephone [facility], [facility] [address] [phone] Coordinator, [facility] [address] [phone] 10/28/2024 8:00 AM EDT Office Visit [facility] [address] [place] [phone] Leslee Heath, [address] [place] [phone] 10/28/2024 10:10 AM EDT Anticoagulation Pharmacy, [facility] Gauri Rosenthal [address] [place] [phone] [facility] [address] [facility] [place] [phone] 10/28/2024 10:20 AM EDT Office Visit Pharmacy, [facility] Gauri Rosenthal [address] [place] [phone] [facility] [address] [facility] [phone] 11/10/2024 11:00 AM EDT Office Visit [facility] Corky Herbert Juan Ariadna [address] [place] [phone] Natalia Heller PA-C [address] [place] [phone] 02/18/2025 12:00 PM EDT Office Visit [facility] Corky Mikalvu Juan [address]adna [address] [place] [phone] Natalia Heller PA-C [address] [place] [phone] Scheduled Procedures Name Priority Associated Diagnoses Date/Ti [...] D LEVEL ONCE IN A LIFETIME-USE SMARTSET# [id number] Completed 05/09/2024, 06/18/2020, 07/25/2019, Additional history exists [...] this encounter Medical Devices Implanted Type Area Brown Stock Washer Device Identifier Shelf Expiration Date Model / Serial / Lot Graft Cervical 6x8 [id number] - [id number] Implanted:Qt y: 2 [place]21[place]2008 [place] [facility] [place] - Human Spine Cervical [employer] [id number] / / Screw Spine 14mm 50-014 - [id number] Implanted:Qt y: 2 on 08/21/2008 [place] [facility] [place]/A: Spine Cervical [employer] DEPUY 8-50-014 / / Depuy [place] 14 Mm Sd Con Scr Implanted:Qt y: 2 on 08/21/2008 [place] [facility] [place]: Spine Cervical [employer]PU[employer] 60-014 / / Description:Depuy skyline 14 mm SD con SCR 34 Mm Plate Implanted:Qt y: 1 on 08/21/2008 [place] [facility] [place]: Spine Cervical 034 / / Description:34 mm Depuy plat e 14 Mm Variable Rescue Implanted:Qt y: 2 on 08/21/2008 [place] [facility] [place]: Spine Cervical 54014 / / Description:14 mm variable r escue Screw 3.5x14 Mntr Fa [id number] - [id number] Implanted:Qt y: 10 on 07/13/2010 [place] [facility] [place]: Spine Cervical JNJ : [employer] [id number] / / Devaughn [id number] - [id number] Implanted:Qt y: 1 on 07/13/2010 [place] [facility] [place]: Spine Cervical JNJ : [employer] [id number] / / Screw Inner Mntr [id number] - [id number] Implanted:Qt y: 8 on 07/13/2010 [place] [facility] [place]: Spine Cervical JNJ : [employer] [id number] / / Nut Outer Xcon [id number] - [id number] Implanted:Qt y: 2 on 07/13/2010 [place] [facility] [place]: Spine Cervical JNJ : [employer] [id number] / / Screw Inner Xcon [id number] - [id number] Implanted:Qt y: 2 on 07/13/2010 [place] [facility] [place]: Spine Cervical JNJ : [employer] [id number] / / Plate 35mm Xcon [id number] - [id number] Implanted:Qt y: 1 on 07/13/2010 [place] [facility] [place]: Spine Cervical JNJ : [employer] [id number] / / documented as of this encounter [...] the patient have Health Care Power of Drencher? No * Full Code Date Activated Date [...] Power of Attor kim? No Care Teams Paper Cone Maker Relationship Specialty Start Date End Date Natalia Heller PA-C [address] [phone] PCP - General Physician Wafer Machine Operator 08/28/24 documented as of this encounter
--- OUTSIDE RECORDS SUMMARY | 2024-10-21 23:32 | External Medical Summary | Summary of Care ---
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) Chronic atrial fibrillation (HCC) Hospital discharge follow-up Dyslipidemia, goal LDL below 100 long-term current use of anticoagulant therapy SOB (shortness of breath) Acute on chronic diastolic congestive heart failure (HCC) Natalia Heller PA-C [address] [place] [address] Phone: tel:[phone] fax:[phone] Referral ID Status Reason Start Date Expiration Date Visits Requested Visits Authorized [id number] Authorized Specialty Services Required 10/14/2024 999 999 Question Answer Referral Priority Within 10 days (routine) Where should this appointment be scheduled? [facility] For which of the following conditions are you referring? Heart Failure Clinic Reason for Visit * Reason Comments Hospital Follow-Up Pt is present with s on, he states that pt is here for hospital follow up. Pt states that she is having a sternum pain Encounter Details Date Type Department Care Team (Late st Contact Info) Description 10/14/2024 1:00 PM EDT Office Visit [facility], 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); Chronic atrial fibrillation (HCC); Dyslipidemia, goal LDL below 100; long-term current use of anticoagulant therapy; SOB (shortness of breath); Type 2 diabetes mellitus with foot ulcer, with long-term current use of insulin ([facility]); Diabetic polyneuropathy associated with type 1 diabetes mellitus (HCC); COPD, moderate (HCC); Prolonged Q-T interval on ECG; Deep vein thrombosis (DVT) of left lower extremity, unspecified chronicity, unspecified vein (HCC); Elevated troponin Allergies Active Allergy Reactions Criticality Noted Date [...] [facility]) Use as directed. 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 90 Capsule 10/14/19 7:59 AM EDT 025 Active Anoro Ellipta 62.5-25 MCG/ACT Inhalation Aerosol Powder Breath Activated (umeclidinium-iain anterol)Indicatio ns:COPD, moderate (HCC) Inhale 1 Puff by mouth in the morning. 90 Each 025 Active Warfarin Sodium 5 MG Oral Tablet (Coumadin)Indicat ions:superintendent terminal current use of anticoagulant therapy,Deep vein [...] 3 mL before bedtime. 360 mL 1 025 Active Compressor NebulizerIndicati ons:SOB (shortness of breath),COPD, moderate (HCC) Inhale via nebulizer. Use as directed. 1 Each 1 025 Active Nebulizer/Tubing/ Mouthpiece KitIndications:SO B (shortness of breath),COPD, moderate (HCC) Use to nebulize medication 1 Kit 1 025 Active Warfarin Sodium 5 MG Oral Tablet (Coumadin)Indicat ions:long-term current use of anticoagulant therapy,Deep vein thrombosis [...] artery disease of n ative artery of yuhaaviatam heart with stable angina pectoris 12/08/2020 Assessment [...] CARDIOLOGY REFERRAL OP Cervical spinal stenosis 08/21/2008 superintendent terminal current use of anticoagulant therapy 0 [...] No 11/19/2023 Does the household have a [facility] source [facility] income? 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 Subjective Graciela Mobley is a 74 year old female that presents for Hospital Follow-Up (Pt is present with son, he states that pt is here for hospital follow up. Pt states that she is having a sternum pain) Was admitted to [facility] on 09/26/2024 due to Acute Hypoxic respiratory [...] Her diabetes is uncontrolled. She works with [employer] and there is question if she is giving hersel insulin regularly. She was discharged home 10/08/2024. Had low bg this morning - at 43 - they had juice and a cooking and it came up She had 2 days of not taking pills [facility] is watching her closely. Past Medical History: [...] LDL below 100 07/15/2009 Per [employer]. 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 of anticoagulant therapy Orders: CARDIOLOGY [...] of insulin ([facility]) Orders: HEMOGLOBIN A1C; Future Diabetic polyneuropathy associated with type 1 diabetes mellitus (HCC) Uncontrolled dm COPD, moderate ([facility]) Orders: Anoro Ellipta 62.5-25 MCG/ACT Inhalation Aerosol [...] meds Orders: EKG Deep vein thrombosis (DVT) ([facility]) Orders: Warfarin Sodium 5 MG Oral Tablet (Coumadin); TAKE ONE TABLET TO ONE AND ONE-HALF TABLET BY MOUTH EVERY DAY DIRECTED BY COUMADIN CLINIC Elevated troponin [place] to be secondary to her hypoxia and [...] of separately billed services. Natalia Heller PA-C 10/14/2024 1:09 PM Cosigned by Ralph Pride MD at 10/14/2024 4:36 PM EDT documented in this encounter Procedure Notes * Anival Flowers DO - 10/14/2024 12:34 PM EDTAssociated Order(s): EKG REASON FOR STUDY: prolonged qt on admission;prolonged qt on a CONCLUSIONS: Sinus rhythm with short VT Prolonged QT interval or tu fusion, consider myocardial disease, electrolyte imbalance, or drug effects Abnormal ECG When compared with ECG of 11-Dec-2023 10:04, VT interval has decreased T wave amplitude has increased in Anterior leads Ventricular Rate: 86 Atrial Rate: 86 VT Interval: 98 QRS Duration: 92 QT/QTc: 430/514 ms P-R-T [place]: 47 : 14 : 32 degrees documented in this encounter Nursing Notes * Sofie Blanchard LPN - 10/14/2024 12:44 PM EDT rGaciela Mobley is a 74 year old female who presents today for Chief Complaint Patient presents with Hospital Follow-Up Pt is present with son, he states that pt is here for hospital follow up. 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) Orders: CARDIOLOGY REFERRAL OP * Assessment & Plan Note - Natalia Heller PA-C - 10/14/2024 1:10 PM EDT Associated Problem(s): Chronic atrial fibrillation (HCC) Orders: CARDIOLOGY REFERRAL OP * Assessment & Plan Note - Natalia Heller PA-C - 10/14/2024 1:10 PM EDT Associated Problem(s): Dyslipidemia, goal LDL below 100 Orders: CARDIOLOGY REFERRAL OP * Assessment & Plan Note - Natalia Heller PA-C - 10/14/2024 1:10 PM EDT Associated Problem(s): long-term current use of anticoagulant therapy Orders: CARDIOLOGY REFERRAL OP Warfarin Sodium 5 MG Oral Tablet (Coumadin); TAKE ONE TABLET TO ONE AND ONE-HALF TABLET BY MOUTH EVERY DAY DIRECTED BY COUMADIN CLINIC * Assessment & Plan Note - Natalia Heller PA-C - 10/14/2024 1:10 PM EDT Associated Problem(s): Type 2 diabetes mellitus with skin complication, with long-term current use of insulin (HCC) Orders: HEMOGLOBIN A1C; Future * Assessment & Plan Note - Natalia Heller PA-C - 10/14/2024 1:10 PM EDT Associated Problem(s): Diabetic polyneuropathy associated with type 1 diabetes mellitus (HCC) Uncontrolled dm * Assessment & Plan Note - Natalia Heller PA-C - 10/14/2024 1:10 PM EDT Associated [...] 10:00 AM EDT Scheduled Telephone [facility] [place] [address] [facility] [place] [address] Coordinator, [facility] [address] [facility] [place] [address] 10/23/2024 10:45 AM EDT Office Visit Cardiology [facility] [place] [address] [place] [address] Ubaldo Tuttle MD [address] [place] [address] 10/28/2024 8:00 AM EDT Office Visit [facility] Disorders Ctr [facility] [address] [facility] [place] [phone] Leslee Heath DO 132 [facility] [place] [address] 10/29/2024 8:00 AM EDT Office Visit Pharmacy, [place] [facility] [place] [phone] [place] [address] [place] [address] 10/29/2024 8:10 AM EDT Anticoagulation Pharmacy, [address] [place], [place] [phone] [facility] [address] [facility] [place] [address] 11/10/2024 11:00 AM EDT Office Visit [facility], [place], [place] [phone] Natalia Heller PA-C [address] [place], [place] [address] 11/12/2024 8:20 AM EDT Office Visit [facility], [place], [place] [phone] Natalia Heller PA-C [address] [place], [place] [address] 02/18/2025 12:00 PM EDT Office Visit [facility], [place], [place] [phone] Natalia Heller PA-C [address] [place], [place] [address] Scheduled Orders Name Type Priority Associated Diagnoses [...] long-term current use of insulin (HCC) Expected: 10/14/2024, Expires: 10/14/2025 Scheduled Procedures Name Priority Associated Diagnoses Date/Ti me COLONOSCOPY FLEXIBLE PROXIMA L DIAGNOSTIC Recall Screening for colon cancer Scheduled Referrals Name Type Priority Associated Diagnoses Orde r Schedule CARDIOLOGY REFERRAL OP Referral Within 10 days (routine) 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) Chronic atrial fibrillation (HCC) Hospital discharge follow-up Dyslipidemia, goal LDL below 100 long-term current use of anticoagulant therapy SOB (shortness [...] D LEVEL ONCE IN A LIFETIME-USE SMARTSET# 36630 Completed 05/09/2024, 06/18/2020, 07/25/2019, Additional history exists [...] this encounter Medical Devices Implanted Type Area Hand Miter Operator Device Identifier Shelf Expiration Date Model / Serial / Lot Graft Cervical 6x8 [id number] - [id number] Implanted:Qt y: 2 on 08/21/2008 at [place] [facility] [place] Tissue - Human Spine Cervical [employer] [id number] / / Screw Spine 14mm 1868-50-014 - [id number] Implanted:Qt y: 2 on 08/21/2008 at OR [facility] [place] N/A: Spine Cervical [employer] DEPUY 50-014 / / Depuy Byng 14 Mm Sd Con Scr Implanted:Qt y: [...] [place]/A: Spine Cervical / / Description:14 mm variable r escue Screw 3.5x14 Mntr Fa [id number] - [id number] Implanted:Qt y: 10 on 07/13/2010 at [place] [facility] [place] N/A: Spine Cervical JNJ : [employer] [id number] / / Devaughn [id number] - [id number] Implanted:Qt y: 1 on 07/13/2010 at [place] [facility] [place] N/A: Spine Cervical JNJ : [employer] [id number] / / Screw Inner Mntr [id number] - [id number] Implanted:Qt y: 8 on 07/13/2010 at [place] [facility] [place] N/A: Spine Cervical JNJ : [employer] [id number] / / Nut Outer Xcon [id number] - [id number] Implanted:Qt y: 2 on 07/13/2010 at [place] [facility] [place] N/A: Spine Cervical JNJ : [employer] [id number] / / Screw Inner Xcon [id number] - [id number] Implanted:Qt y: 2 on 07/13/2010 at [place] [facility] [place] N/A: Spine Cervical JNJ : [employer] [id number] / / Plate 35mm Xcon [id number] - [id number] Implanted:Qt y: 1 on 07/13/2010 at [place] [facility] [place] N/A: Spine Cervical JNJ : [employer] [id number] / / documented as of this encounter Procedures Procedure Name Priority Date/Time Associated Diagnosis Comments INR FINGERSTICK, POINT OF CARE ALINE 10/14/2024 1:24 PM EDT VT ECG ROUTINE ECG W/LEAST 12 LDS I&R ONLY Routine 10/14/2024 12:34 PM EDT Prolonged Q-T interval on ECG documented in this encounter Results * INR FINGERSTICK, POINT OF CARE (10/14/2024 1:24 PM EDT) Fingerstick INR 1.7 INR 1:36 PM EDT [facility] Blood 10/14/2024 1:24 PM EDT 10/14/2024 1:36 PM EDT Narrative [facility]ATORY [facility]-01 - 10/14/2024 1:36 PM EDT Therapeutic ranges for non-operative patients: Prophylaxsis/treatment of DVT: (Range:2.0-3.0) Treatment of pulmonary embolism:(Range:2.0-3.0) Prevention of systemic embolism from: -tissue heart valves -acute myocardial infarction -valvular heart disease -atrial fibrillation (Range: 2.0-3.0) Mechanical prosthetic valves: (Range: 2.5-3.5) Natalia Heller PA-C LAB POINT OF CARE TEST DOCKED DEVICE UNSOLICITED RESULTS Final Result LABORATORY [address] [place] [address], [facility] * EKG (10/14/2024 12:34 PM EDT) 10/14/2024 12:3 4 PM EDT Narrative Procedure Note Anival Flowers DO - 10/14/2024 12:34 PM EDT REASON FOR STUDY: prolonged qt on admission;prolonged qt on a CONCLUSIONS: Sinus rhythm with short VT Prolonged QT interval or tu fusion, consider myocardial disease,electrolyte imbalance, or drug effects Abnormal ECG When compared with ECG of 11-Dec-2023 10:04, VT interval has decreased T wave amplitude has increased in Anterior leads Ventricular Rate: 86 Atrial Rate: 86 VT Interval: 98 QRS Duration: 92 QT/QTc: 430/514 ms P-R-T [place]: 47 : 14 : 32 degrees us Natalia A [employer] PA-C EKG Final Res ult [facility] documented in this encounter Visit Diagnoses Diagnosis COPD, moderate (HCC)- Primary Chronic airway obstruction, not elsewhere classified Chronic atrial fibrillation (HCC) Atrial fibrillation 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 No * Full Code Date Activated Date [...] Power of Attor kim? No Care Teams Planting Machine Operator Relationship Specialty Start Date End Date Natalia Heller PA-C [address] [place] [address] PCP - General Physician Database Manager 08/28/24 documented as of this encounter
--- OUTSIDE RECORDS SUMMARY | 2024-10-21 23:32 | External Medical Summary | Summary of Care ---
Author Name Unknown Organization [facility] Address [address] [place] [address] Phone [phone] Care Team Providers Care Cell Operator Name Role Phone Natalia Heller PA-C Primary Care Provider [phone] Reason for Visit * Reason Onset Date Comments Appointment 10/06/2024 Encounter Details Date Type Department Care Team (Late st Contact Info) Description 10/06/2024 Telephone [facility] [place] [address] [place] [phone] Katharine Adan, SHAKIRA [address] [place] [address] Appointment Allergies Active Allergy Reactions Criticality Noted Date Comments Alendronate Sodium 06/24/2012 Burning sensation and difficulty breathing Proton Pump Inhibitors Hives 02/20/2002 nexium documented as of this encounter (statuses as of 10/06/2024) Medications Multiple Vitamin (DAILY VALUE MULTIVITAMIN) Tablet Take 1 Tablet by mouth in the morning. Active Fluticasone Propionate 50 MCG/ACT Nasal Suspension (Flonase)Indicatio ns:Chronic rhinitis Administer 2 Sprays into each nostril in the morning. 16 g 1 11/02/19 23 Active Accu-Chek Guide Me w/Device KitIndications:Typ e 2 diabetes mellitus with foot ulcer, with long-term current use of insulin ([facility]),DM (diabetes mellitus) type II, controlled, with peripheral vascular disorder (HCC) Use as directed. 10/04/19 24 Active Accu-Chek Softclix LancetsIndications :Type 2 diabetes mellitus with foot ulcer, with long-term current use of insulin (HCC),DM (diabetes mellitus) type II, controlled, with peripheral vascular disorder ([facility]) Use to test blood glucose [...] skin. 310 units in pump. Getting from [employer] PAP Active Aspirin 81 MG Oral [...] :HTN, goal below 130/80,Coronary artery disease involving cocopah coronary artery of cocopah heart without angina pectoris TAKE ONE TABLET [...] Tablet Sublingual (Nitrostat)Indicat ions:Coronary artery disease of cocopah artery of cocopah heart with stable angina pectoris (HCC) PLACE [...] as of this encounter (statuses as of 10/06/2024) Active Problems Problem Noted Date Diagnosed Date [...] cocopah heart with stable angina pectoris 12/08/2020 Assessment [...] as of this encounter (statuses as of 10/06/2024) Resolved Problems Problem Noted Date Diagnosed Date [...] as of this encounter (statuses as of 10/06/2024) Immunizations Name Administration Dates Next Due COVID-19 [...] on file 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 Not on f ile Not on [...] encounter Miscellaneous Notes * Telephone Encounter - Katharine Adan OSA - 10/06/2024 2:39 PM EST Incoming call from Patient is admitted in the hospital. Once discharged, she is going to go into Rehab not sure for how long. He will give us a call back once patient is home. Cancelled October 09 and October 13 appointmentwith Rosalind Smith. documented in this encounter Plan of Treatment Upcoming Encounters Date Type Department Care Team (Late st Contact Info) Description 10/28/2024 8:00 AM EDT [facility] [address] [place] [phone] Leslee Heath DO [address] [place] [address] 10/28/2024 10:10 AM EDT Anticoagulation Pharmacy, [place] [address] [place] [phone] [facility] [address] [facility] [address] 10/28/2024 10:20 AM EDT Office Visit Pharmacy, [place] [phone] [facility] [address] [facility] [address] 11/10/2024 11:00 AM EDT [facility] [address] [place] [phone] Natalia Heller PA-C [address] [place] [address] 02/18/2025 12:00 PM EDT Office [facility] [place] [address] [place] [phone] Natalia Heller PA-C [address] [place] [address] Scheduled Procedures Name Priority Associated Diagnoses Date/Ti [...] D LEVEL ONCE IN A LIFETIME-USE SMARTSET# [id number] Completed 05/09/2024, 06/18/2020, 07/25/2019, Additional history exists [...] this encounter Medical Devices Implanted Type Area Database Dba Device Identifier Shelf Expiration Date Model / Serial / Lot Graft Cervical 6x8 [id number] - [id number] Implanted:Qt y: 2 on 08/21/2008 [place] [facility] [place] Tissue - Human Spine Cervical [employer] [id number] / / Screw Spine 14mm 1868-50-014 - [id number] Implanted:Qt y: 2 on 08/21/2008 at [place] [facility] [place] N/A: Spine Cervical [employer] CAR[employer] DEPUY 1868-50-014 / / Depuy [place] 14 Mm Sd Con Scr Implanted:Qt y: 2 on 08/21/2008 at [place] [facility] [place] N/A: Spine Cervical [employer]PUY 1868-60-014 / / Description:Depuy skyline 14 mm SD con SCR 34 Mm Plate Implanted:Qt y: 1 on 08/21/2008 at [place] [facility] [place] N/A: Spine Cervical 02- / / Description:34 mm Depuy plat e 14 Mm Variable Rescue Implanted:Qt y: 2 on 08/21/2008 at [place] [facility] [place] N/A: Spine Cervical 54-014 / / Description:14 mm variable r escue Screw 3.5x14 Mntr Fa [id number] - [id number] Implanted:Qt y: 10 on 07/13/2010 at [place] [facility] [place] N/A: Spine Cervical JNJ : ETH[employer] [id number] / / Devaughn [id number] - [id number] Implanted:Qt y: 1 on 07/13/2010 at [place] [facility] [place] N/A: Spine Cervical JNJ : [employer] [id number] / / Screw Inner Mntr [id number] - [id number] Implanted:Qt y: 8 on 07/13/2010 at [place] [facility] [place] N/A: Spine Cervical JNJ : [employer] [id number] / / Nut Outer Xcon [id number] - [id number] Implanted:Qt y: 2 on 07/13/2010 at [place] [facility] [place] N/A: Spine Cervical JNJ : [employer] [id number] / / Screw Inner Xcon [id number] - [id number] Implanted:Qt y: 2 on 07/13/2010 at [place] [facility] [place] N/A: Spine Cervical JNJ : [employer] [id number] / / Plate 35mm Xcon [id number] - [id number] Implanted:Qt y: 1 on 07/13/2010 at [place] [facility] [place] N/A: Spine Cervical JNJ : [employer] [id number] / / documented as of this encounter [...] the patient have Health Care Power of Incinerator Operator? No * Full Code Date Activated [...] Power of Attor kim? No Care Teams Cell Operator Relationship Specialty Start Date End Date Natalia Heller PA-C [address] [place] [address] PCP - General Physician Steel Crane Operator 08/28/24 documented as of this encounter
--- OUTSIDE RECORDS SUMMARY | 2024-10-21 23:32 | External Medical Summary | Summary of Care ---
Author Name Unknown Organization [facility] Address [address] [address] Phone [phone] Care Team Providers Care Manager Meeting Name Role Phone Natalia Heller PA-C Primary Care Provider [phone] Reason for Visit * Reason Onset Date Comments Nurse Documentation 10/03/2024 Encounter Details Date Type Department Care Team (Late st Contact Info) Description 10/03/2024 Telephone [facility] [address] [place] [address] Alfa Jaramillo MD [address] [place] [address] Nurse Documentation Allergies Active Allergy Reactions Criticality Noted Date Comments Alendronate Sodium 06/24/2012 Burning sensation and difficulty breathing Proton Pump Inhibitors Hives 02/20/2002 nexium documented as of this encounter (statuses as of 10/03/2024) Medications Multiple Vitamin (DAILY VALUE MULTIVITAMIN) Tablet [...] skin. 310 units in pump. 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 Cervical spinal stenosis 08/21/2008 shelter current use of anticoagulant therapy 0 05/03/2005 documented as of this encounter (statuses as of 10/03/2024) Resolved Problems Problem Noted Date Diagnosed Date Resolved Date Depression, unspecified 09/25/2024/2 12/2024 Type 2 diabetes mellitus wit h [...] 6 months Hypopotassemia 08/22/2008 07/17/2011 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 Alfa Jaramillo ORDER received from [facility] and FAXED documented in this encounter Plan of Treatment Upcoming Encounters Date Type Department Care Team (Late st Contact Info) Description 10/07/2024 10:10 AM EST Anticoagulation Pharmacy, [place] [address] [place] [phone] [place] [address] [facility] [place] [address] 10/09/2024 3:00 PM EST [facility], [facility] [address] [place] [address] Rosalind Smith RN [address] [place] [address] 10/13/2024 10:00 AM EDT [facility] Visit [facility] [place], [facility] [address] [address] Rosalind Smith, RN [address] [facility] [place] [address] 10/28/2024 8:00 AM EDT Office Visit Sleep Disorders Ctr [facility] [address] [place] [phone] Leslee Heath DO [address] [address] 10/28/2024 10:10 AM EDT Anticoagulation Pharmacy, [address] [place] [phone] [facility] [address] [facility] [address] 10/28/2024 10:20 AM EDT Office Visit Pharmacy, [address] [place] [phone] [place] [facility] [address] [facility] [address] 11/10/2024 11:00 AM EDT Office Visit [facility], [place] [place] [phone] Natalia Heller PA-C [address] [place] [address] 02/18/2025 12:00 PM EDT Office Visit [facility], [place]y [address] [place] [address] Natalia Heller PA-C [address] [address] Scheduled Procedures Name Priority Associated Diagnoses Date/Ti [...] D LEVEL ONCE IN A LIFETIME-USE SMARTSET# 69830 Completed 05/09/2024, 06/18/2020, 07/25/2019, Additional history exists [...] this encounter Medical Devices Implanted Type Area Marketing Representative Device Identifier Shelf Expiration Date Model / Serial / Lot Graft Cervical 6x8 [id number] - [id number] Implanted:Qt y: 2 on 08/21/2008 at [place] [facility] [place] Tissue - Human Spine Cervical [employer] [id number] / / Screw Spine 14mm 50-014 - [id number] Implanted:Qt y: 2 on 08/21/2008 at [place] [facility] N/A: Spine Cervical [employer]SON [employer] CARSON DEPUY 50-014 / / Depuy [place] 14 Mm Sd Con Scr Implanted:Qt y: 2 on 08/21/2008 at [place] [facility] N/A: Spine Cervical [employer] DEPUY 60-014 / / Description:Depuy skyline 14 mm SD con SCR 34 Mm Plate Implanted:Qt y: 1 on 08/21/2008 at [place] [facility] N/A: Spine Cervical 034 / / Description:34 mm Depuy plat e 14 Mm Variable Rescue Implanted:Qt y: 2 on 08/21/2008 at [place] [facility] N/A: Spine Cervical [address]014 / / Description:14 mm variable r escue Screw 3.5x14 Mntr Fa [id number] - [id number] Implanted:Qt y: 10 on 07/13/2010 at [place] [facility] N/A: Spine Cervical JNJ : [employer] [id number] / / Devaughn [id number] - [id number] Implanted:Qt y: 1 on 07/13/2010 at [place] [facility] N/A: Spine Cervical JNJ : ETH[employer]ON [employer] [id number] / / Screw Inner Mntr [id number] - [id number] Implanted:Qt y: 8 on 07/13/2010 at [place] [facility] N/A: Spine Cervical JNJ : [employer] [id number] / / Nut Outer Xcon [id number] - [id number] Implanted:Qt y: 2 on 07/13/2010 at [place] [facility] N/A: Spine Cervical JNJ : ETH[employer]ON [employer] [id number] / / Screw Inner Xcon [id number] - [id number] Implanted:Qt y: 2 on 07/13/2010 at [place] [facility] N/A: Spine Cervical JNJ : ETH[employer]ON [employer]ATIONS [id number] / / Plate 35mm Xcon [id number] - [id number] Implanted:Qt y: 1 on 07/13/2010 at [place] [facility] N/A: Spine Cervical JNJ : ETH[employer]ON C[employer]ATIONS [id number] / / documented as of this encounter [...] the patient have Health Care Power of Personal Development Mentor? No * Full Code Date Activated Date [...] of Attor kim? No Care Teams Manager Meeting Relationship Specialty Start Date End Date Natalia Heller PA-C [address] [place] [id number] PCP - General Physician Scoop Operator 08/28/24 documented as of this encounter
--- OUTSIDE RECORDS SUMMARY | 2024-10-21 23:33 | External Medical Summary | Summary of Care ---
Author Name Unknown Organization [facility] Address [address] [address] Phone [phone] Care Team Providers Care Antique Furniture Repairer Name Role Phone Natalia Heller PA-C Primary Care Provider [phone] Encounter Details Date Type Department Care Team (Late st Contact Info) Description 09/12/2024 12:30 PM EST [facility] [address] [place] [address] Rosalind Smith, RN [address] [place] [address] Allergies Active Allergy Reactions Criticality Noted Date Comments Alendronate Sodium 06/24/2012 Burning sensation and difficulty breathing Proton Pump Inhibitors Hives 02/20/2002 nexium documented as of this encounter (statuses as of 09/28/2024) Medications Multiple Vitamin (DAILY VALUE MULTIVITAMIN) Tablet [...] peripheral vascular disorder (HCC) Use as directed. Active Accu-Chek Softclix LancetsIndication [...] skin. 310 units in pump. Getting from [employer] PAP Active Aspirin 81 MG Oral Tablet [...] s:HTN, goal below 130/80,Coronary artery disease involving k[place]sel dehe wintun coronary artery of k[place] de[place] heart without angina pectoris TAKE ONE TABLET [...] Tablet Sublingual (Nitrostat)Indica tions:Coronary artery disease of [place] artery of [place] heart with stable angina pectoris (HCC) PLACE [...] 1 Tablet by mouth at bedtime. Active Warfarin Sodium 5 MG Oral Tablet (Coumadin)Indicat ions:custodial current use of anticoagulant therapy,Deep vein thrombosis (DVT) ([facility]) TAKE ONE TABLET TO ONE AND [...] Strip 3 03/19/20 24 12:17 PM EDT 024 2024 Discontinued Furosemide 20 MG Oral Tablet (Lasix) Take 1 Tablet by mouth once a day on Sunday, Sunday, and Sunday only. 45 Tablet 3 03/19/20 24 12:17 PM EDT 024 2024 Discontinued(R efill) Cephalexin 500 MG Oral Capsule Take 1 Capsule by mouth in the morning and 1 Capsule at noon and 1 Capsule before bedtime. Do all this for 10 days. 30 Capsule 06/11/20 24 3:28 PM EST 024 2024 Discontinued(M edication List Clean Up) Famotidine 40 MG Oral Tablet (Pepcid) Take 1 Tablet by mouth in the morning. 30 Tablet 1 07/11/20 24 11:00 AM EST 024 2024 Discontinued(R efill) Amoxicillin-Pot Clavulanate 875-125 MG Oral Tablet (Augmentin) Take 1 Tablet by mouth in the morning and 1 Tablet before bedtime. Do all this for 21 days. 42 Tablet 08/21/19 25 2:33 PM EST 025 2024 Discontinued(M edication List Clean Up) methylPREDNISolon e 4 MG Oral Tablet Therapy Pack Take [...] tablet (4 mg) before breakfast. 17 Tablet 025 2024 Discontinued(E nd of Procedure) methylPREDNISolon e 4 MG Oral Tablet Therapy Pack (Medrol) Take as directed 21 Tablet 08/25/19 25 11:23 AM EST 025 2024 Discontinued(M edication List Clean Up) Hospital, Clinic, or Other Facility Administered Medication Ordered Dose Route Frequency Start Date End Date Status Albuterol Sulfate (Proventil) (2.5 MG/3ML) 0.083% inhalation solution 2.5 mgIndications:COPD with exacerbation (HCC),SOB (shortness of breath),Asthma with COPD (chronic obstructive pulmonary disease) (HCC) 2.5 mg NEBULIZER PRN 08/21/2024 08/21/2025 Active documented as of this encounter (statuses as of 09/28/2024) Active Problems Problem Noted Date Diagnosed Date Depression, unspecified 09/25/2024 Diabetic polyneuropathy asso ciated with type 1 [...] artery disease of n ative artery of kletsel dehe wintun heart with stable angina pectoris 12/08/2020 Assessment [...] Per Lipid Taxonomy. 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 Not on f ile Not on file Not on file documented as of this encounter Last Filed Vital Signs Vital Sign Reading Time Taken Comments Blood Pressure 136/68 09/12/2024 1:20 PM EST Pulse 68 09/12/2024 1:20 PM EST Temperature 36.8 C (98.2 F) 09/12/2024 1:20 PM ES T Respiratory Rate 18 09/12/2024 1:20 PM EST Oxygen Saturation 96% 09/12/2024 1:20 PM EST Inhaled Oxygen Concentration - - [...] Progress Notes * Rosalind Smith RN - 09/12/2024 12:52 PM EST Current Concerns: Pt seen for ALBARO Admitted to [facility] 09/05 - 09/10/24 for acute copd exacerbation, respiratory syncytial virus infection-RSV, acute bronchitis, sepsis, diabetic ketoacidosis Discharged home on 4 doses of doxycycline to finish Meds reviewed and fixed pill box to reflect Coumadin orders from hospital Advised to be using albuterol inhaler 4 x a day Noted wheezes of right lobes Pt feels her SOB is at baseline at this time Denies cough with mucus production Teaching done regarding glucometer - she is need of refill of the test strips- TE sent to provider She is also low on Furosemide and Famotidine - orders pended for refills Physical Exam: Physical Exam Constitutional: General: She [...] Negative. Eyes: Negative. Respiratory: Positive for cough (intermittent, has improved) and shortness of breath (GARCIA - at baseline). Cardiovascular: Negative. Gastrointestinal: Negative. Genitourinary: Negative. Musculoskeletal: Positive for arthralgias and gait problem. Skin: Negative. Neurological: Positive for weakness. Psychiatric/Behavioral: Negative. Care Plan Goal Progress: Orders Placed: No orders of the defined types were placed in this encounter. Medications Given: Care Gaps: Care Gaps Care gaps closed this contact: Education;Medications;Plan of Care (POC) (09/28/241635) Type of education: Clinical/disease;Educated on the benefits of connecting with their PCP ([phone]) Type of medication care gap: Medication adherence (09/28/241635) Type of plan of care (POC) care gap: Education and review of exacerbation plan (09/28/241635) documented in this encounter Plan of Treatment Upcoming Encounters Date Type Department Care Team (Late st Contact Info) Description 09/30/2024 9:20 AM EST Office Visit Sleep Disorders Ctr [facility] [address] [facility] [place] [phone] Leslee Heath, [address] [facility] [place] [address] 10/07/2024 10:10 AM EST Anticoagulation Pharmacy, [place]y [facility] [place] [phone] Kon[address] [place] [address] 10/09/2024 3:00 PM EST [facility], [facility] [address] [place] [address] Rosalind Smith, RN [address] [place] [address] 10/13/2024 10:00 AM EDT [facility] Visit [facility], [facility] [address] [place] [address] Rosalind Smith, RN [address] [place] [address] 10/28/2024 10:10 AM EDT Anticoagulation Pharmacy, [place] [place] [phone] [place] [address] [place] [address] 10/28/2024 10:20 AM EDT Office Visit Pharmacy, [place]y [address] [place] [phone] [place] [address] [place] [address] 11/10/2024 11:00 AM EDT Office Visit [facility], [address] [place] [phone] Natalia Heller PA-C [address] [place] [address] 02/18/2025 12:00 PM EDT [facility] [place] [phone] Natalia Heller PA-C [address] [place] [phone] Scheduled Procedures Name Priority Associated Diagnoses Date/Ti [...] D LEVEL ONCE IN A LIFETIME-USE SMARTSET# 68300 Completed 05/09/2024, 06/18/2020, 07/25/2019, Additional history exists [...] this encounter Medical Devices Implanted Type Area Microsoft Exchange Architect Device Identifier Shelf Expiration Date Model / Serial / Lot Graft Cervical 6x8 [id number] - [id number] Implanted:Qt y: 2 on 08/21/2008 at [place] [facility] [place] Tissue - Human Spine Cervical [employer] [id number] / / Screw Spine 14mm 50-014 - [id number] Implanted:Qt y: 2 on 08/21/2008 at [place] [facility] [place] N/A: Spine Cervical CARSON [employer] CARSON DEPUY 50-014 / / Depuy [place] 14 Mm Sd Con Scr Implanted:Qt y: 2 on 08/21/2008 at [place] [facility] N/A: Spine Cervical [employer] CAR[employer] DEPUY 60014 / / Description:Depuy skyline 14 mm SD con SCR 34 Mm Plate Implanted:Qt y: 1 on 08/21/2008 at [place] [facility] N/A: Spine Cervical 034 / / Description:34 mm Depuy plat e 14 Mm Variable Rescue Implanted:Qt y: 2 on 08/21/2008 at [place] [facility] [place] N/A: Spine Cervical 54-014 / / Description:14 mm variable r escue Screw 3.5x14 Mntr Fa [id number] - [id number] Implanted:Qt y: 10 on 07/13/2010 at [place] [facility] [place] N/A: Spine Cervical JNJ : ETHICON CARDIOVATIONS [id number] / / Devaughn [id number] - [id number] Implanted:Qt y: 1 on 07/13/2010 at [place] [facility] N/A: Spine Cervical JNJ : ETH[employer]ON CARDI[employer]ATIONS [id number] / / Screw Inner Mntr [id number] - [id number] Implanted:Qt y: 8 on 07/13/2010 at [place] [facility] N/A: Spine Cervical JNJ : ETH[employer]ON [employer]ATIONS [id number] / / Nut Outer Xcon [id number] - [id number] Implanted:Qt y: 2 on 07/13/2010 at [place] [facility] N/A: Spine Cervical JNJ : ETH[employer]ON [employer]ATIONS [id number] / / Screw Inner Xcon [id number] - [id number] Implanted:Qt y: 2 on 07/13/2010 at [place] [facility] N/A: Spine Cervical JNJ : ETH[employer]ON C[employer]ATIONS [id number] / / Plate 35mm Xcon [id number] - [id number] Implanted:Qt y: 1 on 07/13/2010 at [place] [facility] N/A: Spine Cervical JNJ : ETH[employer]ON [employer]ATIONS [id number] / / documented as of this encounter [...] the patient have Health Care Power of Silverer? No * Full Code Date Activated Date [...] Power of Attor kim? No Care Teams Antique Furniture Repairer Relationship Specialty Start Date End Date Natalia Heller PA-C [address] [place] [phone] PCP - General Physician Toe Puncher 08/28/24 documented as of this encounter
--- OUTSIDE RECORDS SUMMARY | 2024-10-21 23:33 | External Medical Summary | Summary of Care ---
Author Name Unknown Organization [facility] Address [address] [facility] [place] [address] Phone [phone] Care Team Providers Care Certifier Name Role Phone Natalia eHller PA-C Primary Care Provider [phone] [phone] Encounter Details Date Type Department Care Team (Late st Contact Info) Description 09/25/2024 1:00 PM EST [facility] Visit [facility] [address] [place] [address] Radu Suazo PA-C [address] [place] [address] COPD, moderate (HCC)*; Chronic diastolic congestive heart failure (HCC); Senile osteoporosis; Acquired absence of other toe(s), unspecified side (HCC) Allergies Active Allergy Reactions Criticality Noted Date Comments Alendronate Sodium 06/24/2012 Burning sensation and difficulty breathing Proton Pump Inhibitors Hives 02/20/2002 nexium documented as of this encounter (statuses as of 09/30/2024) Medications Multiple Vitamin (DAILY VALUE MULTIVITAMIN) Tablet [...] vascular disorder ([facility]) Use as directed. 10/04/19 24 Active [...] skin. 310 units in pump. Getting from [employer] PAP Active Aspirin 81 MG Oral Tablet [...] goal below 130/80,Coronary artery disease involving little shell tribe coronary artery of little shell tribe heart without angina pectoris TAKE ONE TABLET BY MOUTH EVERY MORNING 90 Tablet 3 05/09/2024 8:51 AM EDT 01/15/20 24 025 Active metFORMIN HCl 1000 MG Oral Tablet (Glucophage)Indica tions:DM type 1 causing neurological disease, not at goal ([facility]) TAKE ONE TABLET BY MOUTH TWICE A DAY WITH FOOD 200 Tablet 3 06/13/2024 3:44 PM EST 01/22/20 24 025 Active Vitamin B12 500 MCG Oral Tablet Take by mouth daily. 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 Not on f ile Not on file [...] documented in this encounter Progress Notes * Radu Suazo PA-C - 09/25/2024 12:42 PM EST Images from the original note were not included. [facility] Provider Visit Assessment and Plan Assessment & Plan Chronic diastolic congestive heart failure (HCC) "RED FLAG" HF Symptoms: Leg Swelling Abdominal [...] Appears euvolemic Chronic GARCIA , likely multifactorial COPD, moderate (HCC) Now following with pulm Only using albtuerol qid at this time Recently completed augmentin as well as oral steroid Senile osteoporosis Acquired absence of other toe(s), unspecified side (HCC) First toe of right foot Additional Medical Decision Making: Patient lives with spouse and 2 dogs Independent with ADLs Manages own medications with help from spouse Ambulates with walker Will reach out to [facility] regarding ongoing low sugars Deconditioned overall and fairly sedentary Scheduled appointments in the next 60 days: Future Appointments-next 60 days Date/Time Provider Specialty Dept Phone 09/25/2024 1:00 PM Radu Suazo PA-C [facility] [phone] 09/30/2024 9:20 AM (Arrive by 9:05 AM) Leslee Heath, Sleep Disorders [phone] 10/07/2024 10:10 AM [facility] [phone] 10/09/2024 3:00 PM Rosalind Smith RN [facility] [phone] 10/13/2024 10:00 AM Rosalind Smith RN [facility] [phone] 10/28/2024 10:10 AM [facility] [phone] 10/28/2024 10:20 AM [facility] [phone] 11/10/2024 11:00 AM (Arrive by 10:45 AM) Natalia Heller PA-C [facility] [phone] 02/18/2025 12:00 PM (Arrive by 11:45 AM) Natalia Heller PA-C [facility] [phone] A total of 30 minutes was spent face to face (via video-based telemedicine if designated as a telemedicine visit) Subjective Subjective Is this a Telemedicine Visit? No, this is an Home Visit. Reason For [facility] Visit: Follow-Up Current Concerns: Graciela Mobley is a 74 year old female seen today for a [facility] provider visit. PMH includes COPD, DM2, afib, CAD, dyslipidemia, depression 11/13/2023 - cardioversion 11/14/2023 - [facility] - respiratory distress, HTN urgency, flash pulmonary edema 09/05-09/10/24 - [facility] - copd exacerbation, RSV, DKA Today's concerns are: Reports still having some low blood glucose Recently seen by [facility] and had insulin pump decreased Continues to monitor with dexcom States her appetite is stable Denies any n/v Breathing at baseline Continues to have some GARCIA, but denies SOB at rest Denies cough Using albuterol qid Denies chest pain, palpitations Additional Current Outpatient Medications Medication Sig Dispense Refill Multiple Vitamin (DAILY VALUE MULTIVITAMIN) Tablet Take 1 Tablet by mouth in the morning. Fluticasone Propionate 50 MCG/ACT Nasal Suspension (Flonase) Administer 2 Sprays into each nostril in the morning. 16 g 1 Accu-Chek Guide Me w/Device Kit Use as [...] 1 Tablet by mouth in the morning. Potassium Chloride ER 10 MEQ Oral Capsule [...] 1 Tablet by mouth at bedtime. (Patient not taking: Reported on 09/12/2024) 30 Tablet 0 Zoster Vac Recomb Adjuvanted 50 MCG/0.5ML Intramuscular Suspension Reconstituted (Shingrix) Inject into a large muscle (Patient not taking: Reported on 08/12/2024) 0.5 mL 0 Albuterol Sulfate HFA 108 (90 Base) MCG/ACT Inhalation Aerosol Solution Inhale 2 puffs by mouth 4 times daily 20.1 g 2 traZODone HCl 50 MG Oral Tablet (Desyrel) Take 1 Tablet by mouth at bedtime. Furosemide 20 MG Oral Tablet (Lasix) Take 1 Tablet by mouth once a day on Sunday, Sunday, and Sunday only. 45 Tablet 3 Famotidine 40 MG Oral Tablet (Pepcid) Take 1 Tablet by mouth in the morning. 30 Tablet 1 Accu-Chek Guide Test In Vitro Strip (Glucose Blood) Use to test bg up to 4 times a day 800 Strip 1 Accu-Chek Adri Plus w/Device Kit Use to check bg 1 Kit 1 Current Facility-Administered Medications Medication Dose Route Frequency Provider Last Rate Last Admin Albuterol Sulfate (Proventil) (2.5 MG/3ML) 0.083% inhalation solution 2.5 mg 2.5 mg Nebulizer PRN 2.5 mg at 09/15/24 0823 I have reviewed the following results: CMP and CBC Lab Results Component Value Date/Time LEFT VENTRICULAR EJECTION FRACTION 60 09/02/2024 07:53 AM Objective Objective There were no vitals filed for this visit. Last Weights: Wt Readings from Last 3 Encounters: 08/21/24 95.3 kg (210 lb) 07/09/24 97.3 kg (214 lb 8 oz) 06/10/24 95.3 kg (210 lb) Last BPs: BP Readings from Last 4 Encounters: 09/12/24 136/68 08/21/24 110/60 08/12/24 124/70 07/18/24 148/70 General: alert and no distress Neuro: alert & oriented x 3 with fluent speech Heart: regular rate & rhythm and +murmur Lungs: decreased breath sounds, no wheeze, no rales, no rhonchi Abdomen: abdomen soft, non-tender, obese, and normal bowel sounds Ext: Normal extremities without edema documented in this encounter Miscellaneous Notes * Assessment & Plan Note - Radu Suaoz PA-C - 09/30/2024 11:32 AM EST Associated Problem(s): Senile osteoporosis * Assessment & Plan Note - Radu Suazo PA-C - 09/30/2024 11:32 AM EST Associated Problem(s): Chronic diastolic congestive heart failure (HCC) "RED FLAG" HF Symptoms: Leg Swelling Abdominal [...] Appears euvolemic Chronic GARCIA , likely multifactorial * Assessment & Plan Note - Radu Suazo PA-C - 09/30/2024 11:32 AM EST Associated Problem(s): COPD, moderate (HCC) Now following with pulm Only using albtuerol qid at this time Recently completed augmentin as well as oral steroid * Assessment & Plan Note - Radu Suazo PA-C - 09/30/2024 11:32 AM EST Associated Problem(s): Acquired absence of other toe(s), unspecified side (HCC) First toe of right foot documented in this encounter Plan of Treatment Upcoming Encounters Date Type Department Care Team (Late st Contact Info) Description 10/07/2024 10:10 AM EST [facility]tico[facility] Pharm[facility], [facility] [address] [facility] [phone] [facility] [address] [place] [address] 10/09/2024 3:00 PM EST [facility] [address] [facility] [place] [address] Rosalind Smith RN [address] [facility] [place] [address] 10/13/2024 10:00 AM EDT [facility] [address] [place] [address] Rosalind Smith, RN [address] [place] [address] 10/28/2024 8:00 AM EDT Office Visit Sleep Disorders Ctr [facility] [address] [place] [phone] Leslee Heath, [address] [place] [address] 10/28/2024 10:10 AM EDT Anticoagulation Pharmacy, [place] [address] [place] [phone] [facility] [address], [place] [phone] 10/28/2024 10:20 AM EDT Office Visit Pharmacy, [place] [address] [facility] [address] [place] [address] 11/10/2024 11:00 AM EDT Office Visit [facility], [place] [address] Natalia Heller PA-C [address] [place] [address] 02/18/2025 12:00 PM EDT Office Visit [facility], [address] [place] [phone] Natalia Heller PA-C [address] [place] [address] Scheduled Procedures Name Priority Associated Diagnoses Date/Ti [...] D LEVEL ONCE IN A LIFETIME-USE SMARTSET# 38417 Completed 05/09/2024, 06/18/2020, 07/25/2019, Additional history exists [...] this encounter Medical Devices Implanted Type Area Buckle Wire Inserter Device Identifier Shelf Expiration Date Model / Serial / Lot Graft Cervical 6x8 [id number] - [id number] Implanted:Qt y: 2 on 08/21/2008 at [facility] Tissue - Human Spine Cervical [employer] [id number] / / Screw Spine 14mm 50-014 - [id number] Implanted:Qt y: 2 on 08/21/2008 at [facility] N/A: Spine Cervical [employer] 1867-50-014 / / Depuy [place] 14 Mm Sd Con Scr Implanted:Qt y: 2 on 08/21/2008 at [facility] N/A: Spine Cervical [employer] 60-014 / / Description:Depuy skyline 14 mm SD con SCR 34 Mm Plate Implanted:Qt y: 1 on 08/21/2008 at [facility] N/A: Spine Cervical 034 / / Description:34 mm Depuy plat e 14 Mm Variable Rescue Implanted:Qt y: 2 on 08/21/2008 at [facility] N/A: Spine Cervical 54-014 / / Description:14 mm variable r escue Screw 3.5x14 Mntr Fa [id number] - [id number] Implanted:Qt y: 10 on 07/13/2010 at [facility] N/A: Spine Cervical JNJ : [employer] [id number] / / Devaughn [id number] - [id number] Implanted:Qt y: 1 on 07/13/2010 at [facility] N/A: Spine Cervical JNJ : [employer] [id number] / / Screw Inner Mntr [id number] - [id number] Implanted:Qt y: 8 on 07/13/2010 at [facility] N/A: Spine Cervical JNJ : [employer] [id number] / / Nut Outer Xcon [id number] - [id number] Implanted:Qt y: 2 on 07/13/2010 at [facility] N/A: Spine Cervical JNJ : [employer] [id number] / / Screw Inner Xcon [id number] - [id number] Implanted:Qt y: 2 on 07/13/2010 at [facility] N/A: Spine Cervical JNJ : [employer] [id number] / / Plate 35mm Xcon [id number] - [id number] Implanted:Qt y: 1 on 07/13/2010 at [facility] N/A: Spine Cervical JNJ : [employer] [id number] / / documented as of this encounter Visit Diagnoses Diagnosis COPD, moderate (HCC)- Primary Chronic airway obstruction, not elsewhere classified Chronic atrial fibrillation (HCC) Atrial fibrillation 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 No * Full Code Date [...] Power of Attor kim? No Care Teams Certifier Relationship Specialty Start Date End Date Natalia Heller PA-C [address] [place] [id number] PCP - General Physician Technical Artist 08/28/24 documented as of this encounter
[2024-10-22 00:07] LABS: BUN Creatinine Ratio 23.5 (10-20); Calcium 8.2 mg/dl (8.6-10.3); Creatinine Clr Calc Pharmacy 48.1 ml/min; Magnesium 2.3 mg/dl (1.7-2.4); Phosphorus 2.3 mg/dl (2.5-4.9); Potassium 4.1 mmol/L (3.5-5.1); Troponin I High Sensitivity 389.9 pg/ml (0-14)
[2024-10-22 03:30] LABS: A calco-baum cmplx NotReported Not Detected (NotDetected); Bact fragilis Not Reported Not Detected (NotDetected); Blood Culture Id Panel See PCR Comment (NotDetected); C auris Not Reported Not Detected (NotDetected); CTX-M Resistant Gene Not Detected (NotDetected); Calbicans Not Reported Not Detected (NotDetected); Candida glabrata Not Reported Not Detected (NotDetected); Candida krusei Not Reported Not Detected (NotDetected); Cneoformans/gatti Not Reported Not Detected (NotDetected); Cparapsilosis Not Reported Not Detected (NotDetected); E cloacae compx Not Reported Not Detected (NotDetected); Efaecalis Not Reported Not Detected (NotDetected); Efaecium Not Reported Not Detected (NotDetected); Enterobacterales DETECTED (NotDetected); Enterobacterales Not Reported DETECTED (NotDetected); Escherichia coli Not Reported DETECTED (NotDetected); H influenzae Not Reported Not Detected (NotDetected); IMP Resistant Gene Not Detected (NotDetected); K aerogenes Not Reported Not Detected (NotDetected); KPC Resistant Gene Not Detected (NotDetected); Koxytoca Not Reported Not Detected (NotDetected); Kpneumoniae grp Not Reported Not Detected (NotDetected); Lmonocyt Not Reported Not Detected (NotDetected); N meningitidis Not Reported Not Detected (NotDetected); NDM Resistant Gene Not Detected (NotDetected); OXA 48 Like Resistant Gene Not Detected (NotDetected); P aeruginosa Not Reported Not Detected (NotDetected); Proteus spp Not Reported Not Detected (NotDetected); Salmonella spp Not Reported Not Detected (NotDetected); Staph lugdunensis Not Reported Not Detected (NotDetected); Staph spp. Not Reported Not Detected (NotDetected); Staphaureus Not Reported Not Detected (NotDetected); Staphepi Not Reported Not Detected (NotDetected); Stenmaltophilia Not Reported Not Detected (NotDetected); Strep agal(GrpB) Not Reported Not Detected (NotDetected); Strep pneum Not Reported Not Detected (NotDetected); Strep pyog (GrpA) Not Reported Not Detected (NotDetected); Strep spp Not Reported Not Detected (NotDetected); VIM Resistant Gene Not Detected (NotDetected); mcr-1 Colistin Resistant Gene Not Detected (NotDetected)
--- OUTSIDE RECORDS SUMMARY | 2024-10-22 04:44 | External Medical Summary | Summary of Care ---
Author Name Unknown Organization [facility] Address [address] [facility] [facility] [place] [address] Phone [phone] Care Team Providers Care Shopper Marketing Manager Name Role Phone Natalia Heller PA-C Primary Care Provider [phone] Reason for Visit * Reason Onset Date Comments Advice 10/21/2024 Encounter Details Date Type Department Care Team (Late st Contact Info) Description 10/21/2024 Telephone [facility] [address] [place] [address] Natalia Heller PA-C [address] [facility] [address] Advice Allergies Active Allergy Reactions Criticality Noted Date Comments Alendronate Sodium 06/24/2012 Burning sensation and difficulty breathing Proton Pump Inhibitors Hives 02/20/2002 nexium documented as of this encounter (statuses as of 10/21/2024) Medications Multiple Vitamin (DAILY VALUE MULTIVITAMIN) Tablet [...] with peripheral vascular disorder ([facility]) Use as directed. 4 Active Accu-Chek Softclix LancetsIndication s:Type 2 diabetes mellitus with foot ulcer, with long-term current use of insulin ([facility]),DM (diabetes mellitus) type II, controlled, with peripheral vascular disorder ([facility]) Use to test blood glucose 4 [...] skin. 310 units in pump. Getting from [employer] PAP Active Aspirin 81 MG Oral Tablet Delayed Release Take 1 Tablet by mouth in the morning. 4 Active Metoprolol Succinate ER 50 MG Oral Tablet Extended Release 24 Hour (toPROL XL) TAKE ONE TABLET BY MOUTH TWICE A DAY 180 Tablet 3 05/09/2024 8:51 AM EDT 4 025 Active Additional Information Patient taking differently: 12.5 mg once daily, dose decreased [facility] admit 09/26/24, Reported on 10/14/2024 Isosorbide Mononitrate ER 60 MG Oral Tablet Extended Release 24 Hour (Imdur)Indication s:HTN, goal below 130/80,Coronary artery disease involving viejas coronary artery of viejas heart without angina pectoris TAKE ONE TABLET BY MOUTH EVERY MORNING 90 Tablet 3 10/20/2024 12:51 PM EDT 4 025 Active metFORMIN HCl 1000 MG Oral Tablet (Glucophage)Indic ations:DM type 1 causing neurological disease, 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 Active Nitroglycerin 0.3 MG Sublingual Tablet Sublingual (Nitrostat)Indica tions:Coronary artery disease of viejas artery of viejas [...] Oral Tablet (Lasix)Indication s:Coronary artery disease of viejas artery of viejas heart with stable angina pectoris (HCC) Take 1 Tablet by mouth in the morning. 90 Tablet 5 Active Potassium Chloride ER 10 MEQ Oral Capsule Extended ReleaseIndication s:Coronary artery disease of viejas artery of viejas heart with stable angina pectoris (HCC) Take 1 Capsule by mouth in the morning. 90 Capsule 10/13/2024 7:59 AM EDT 5 Active Anoro Ellipta 62.5-25 MCG/ACT Inhalation Aerosol Powder Breath Activated (umeclidinium-iain anterol)Indicatio ns:COPD, moderate (HCC) Inhale 1 Puff by mouth in the morning. 90 Each 1 10/17/2024 7:02 AM EDT 5 Active Warfarin Sodium 5 MG Oral Tablet (Coumadin)Indicat ions:nursing home current use of anticoagulant therapy,Deep vein [...] as of this encounter (statuses as of 10/21/2024) Active Problems Problem Noted Date Diagnosed Date [...] CARDIOLOGY REFERRAL OP Cervical spinal stenosis 08/21/2008 nursing home current use of anticoagulant therapy 0 05/03/2005 Assessment & Plan (10/14/2024 1:10 PM EDT): Orders: CARDIOLOGY REFERRAL OP Warfarin Sodium 5 MG Oral Tablet (Coumadin); TAKE ONE TABLET TO ONE AND ONE-HALF TABLET BY MOUTH EVERY DAY DIRECTED BY COUMADIN CLINIC documented as of this encounter (statuses as of 10/21/2024) Resolved Problems Problem Noted Date Diagnosed Date [...] as of this encounter (statuses as of 10/21/2024) Immunizations Name Administration Dates Next Due COVID-19 [...] on file 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 Not on [...] Telephone Encounter - Emilee Blanco LPN - 10/21/2024 12:22 PM EDT Spoke with Natalie from home health. Pt's blood sugar is 500 plus (with out eating anything), BP 164/102, Pulse 124, temp 98.3, Resps 22 to 24. They state pt is having trouble breathing. Per Natalia, pt needs to go to the ER for evaluation. * Telephone Encounter - Reina Vásquez OSA - 10/21/2024 12:19 PM EDT Reason for patient's call: Natalie PT Home Health calling requesting to speak with a nurse Caller was transferred to Emilee at the nurse line. documented in this encounter Plan of Treatment Upcoming Encounters Date Type Department Care Team (Late st Contact Info) Description 10/22/2024 2:30 PM EDT Office Visit Pharmacy, [place] [address] [facility] [phone] [facility] [address] [facility] [address] 10/23/2024 10:45 AM EDT Office Visit Cardiology [address] [address] Ubaldo Tuttle MD [address] [facility] [place], [place] [address] 10/28/2024 8:00 AM EDT Office Visit Sleep Disorders Ctr [facility] [address] [place] [phone] Leslee Heath, [address] [place] [phone] 10/29/2024 8:00 AM EDT Office Visit Pharmacy, [address] [place] [phone] [place] [address] [place] [address] 10/29/2024 8:10 AM EDT Anticoagulation Pharmacy, [address] [place] [phone] [facility] [address] [place] [address] 11/10/2024 11:00 AM EDT Office Visit [facility], [address] [place] [phone] Natalia Heller PA-C [address] [place] [address] 11/12/2024 8:20 AM EDT Office Visit Family [facility], [address] [place] [phone] Natalia Heller PA-C [address] [place] [address] 02/18/2025 12:00 PM EDT Office Visit [place] Practice, [place] [address] [place] [address] Natalia Heller PA-C [address] [place] [address] Scheduled Procedures Name Priority Associated Diagnoses Date/Ti [...] D LEVEL ONCE IN A LIFETIME-USE SMARTSET# [id number] Completed 05/09/2024, 06/18/2020, 07/25/2019, Additional history exists [...] this encounter Medical Devices Implanted Type Area Orthopedics Nurse Device Identifier Shelf Expiration Date Model / Serial / Lot Graft Cervical 6x8 [id number] - [id number] Implanted:Qt y: 2 on 08/21/2008 at [place] [facility] Tissue - Human Spine Cervical [employer] [id number] / / Screw Spine 14mm 8-50-014 - [id number] Implanted:Qt y: 2 on 08/21/2008 at [facility] N/A: Spine Cervical [employer]Y 1867-50-014 / / Depuy [place] 14 Mm Sd Con Scr Implanted:Qt y: 2 on 08/21/2008 at [facility] N/A: Spine Cervical [employer] 8-60-014 / / Description:Depuy skyline 14 mm SD con SCR 34 Mm Plate Implanted:Qt y: 1 on 08/21/2008 at [facility] N/A: Spine Cervical / / Description:34 mm Depuy plat e 14 Mm Variable Rescue Implanted:Qt y: 2 on 08/21/2008 at [facility] N/A: Spine Cervical 54-014 / / Description:14 mm variable r escue Screw 3.5x14 Mntr Fa [id number] - [id number] Implanted:Qt y: 10 on 07/13/2010 at [facility] N/A: Spine Cervical JNJ : [employer] [id number] / / Devaughn [id number] - [id number] Implanted:Qt y: 1 on 07/13/2010 at [facility] N/A: Spine Cervical JNJ : [employer] [id number] / / Screw Inner Mntr [id number] - [id number] Implanted:Qt y: 8 on 07/13/2010 at [facility] N/A: Spine Cervical JNJ : [employer] [id number] / / Nut Outer Xcon [id number] - [id number] Implanted:Qt y: 2 on 07/13/2010 at [place] [facility] N/A: Spine Cervical JNJ : [employer] [id number] / / Screw Inner Xcon [id number] - [id number] Implanted:Qt y: 2 on 07/13/2010 at [facility] N/A: Spine Cervical JNJ : [employer] [id number] / / Plate 35mm Xcon [id number] - [id number] Implanted:Qt y: 1 on 07/13/2010 at [place] [facility] N/A: Spine Cervical JNJ : [employer] [id number] / / documented as of this encounter [...] the patient have Health Care Power of Waybill Clerk? No * Full Code Date Activated Date [...] Power of Attor kim? No Care Teams Shopper Marketing Manager Relationship Specialty Start Date End Date Natalia Heller PA-C [address] [place] [address] PCP - General Physician Abalone Sheller 08/28/24 documented as of this encounter
[2024-10-22 05:00] LABS: BUN Creatinine Ratio 27.2 (10-20); Calcium 8.3 mg/dl (8.6-10.3); Creatinine Clr Calc Pharmacy 53.7 ml/min; Magnesium 2.3 mg/dl (1.7-2.4); Phosphorus 2.4 mg/dl (2.5-4.9); Potassium 4.1 mmol/L (3.5-5.1)
[2024-10-22 05:04] LABS: INR 4.1 (0.9-1.1); Prothrombin Time 39.1 Seconds (9.0-12.0)
[2024-10-22] MEDS: POTASSIUM CHLORIDE CRTAB 20 MEQ TABCR PO STA (05:59)
[2024-10-22 08:12] LABS: BUN Creatinine Ratio 28.7 (10-20); Calcium 8.3 mg/dl (8.6-10.3); Magnesium 2.3 mg/dl (1.7-2.4); Potassium 4.1 mmol/L (3.5-5.1)
[2024-10-22] MEDS: ROSUVASTATIN CALCIUM 20 MG TAB PO SCH (08:30)
[2024-10-22] MEDS: METOPROLOL SUCC 25MG EXT REL TAB PO SCH (08:30)
[2024-10-22] MEDS: ASPIRIN 81 MG ECTAB PO SCH (08:30)
--- NOTE | 2024-10-22 09:59 | Critical Care Progress Note ---
Date of Service October 22, 2024 Assessment & Plan (1) Septic shock: (2) Lactic acidosis: (3) Hyperlipidemia: (4) Insulin dependent type 2 diabetes mellitus: (5) Chronic atrial fibrillation: (6) Supratherapeutic INR: (7) Elevated troponin: (8) Acute hypoxic respiratory failure: Plan Reason Critically Ill: 74 YOF presents with septic shock, with organ dysfunction, metabolic and lactic acidosis likely complicated by starvation ketosis and metformin use. Neuro - No acute needs at this time [facility] ICU: Negative Cardiac -Hx of AFIB, HTN - Shock -resolved -Did not require vasoactives - Elevated HsCTNI- this has downtrended following pulmonary and cardiovascular supportive care- likely type II demand in setting of acidosis and shock Respiratory - Hypoxic respiratory failure: Improved -Adequate oxygen saturation on room air - Doubt PE a this time as patient is on chronic warfarin and is supratherapeutic on this- and she is currently without oxygen need. - She likely has a component of obesity hypoventilation and possibly SHAKIRA as well as noting her chronically elevated bicarb- could consider ABG in morning following correction of her current disorders. GI -diabetic type II diet - gallstones noted on ultrasound- without dilated CBD or GB and without o bstructive pattern on labs RENAL/LYTES -thiamine today, discontinue supplemental fluids - Metabolic acidosis -supplemental thiamine today and will recheck lactate -Glycemic management per pharmacy -Discontinue additional fluids - UTI based on UA: No obvious risk factors: Can discontinue catheter per nurse driven protocol ENDO - DMII -Pharmacy adjusting sliding scale Hope to transition off insulin infusion HEME -supratherapeutic INR - Likely secondary to her dietary intake- as reports not eating past 3-5 days - Hold warfarin at this time- follow daily INR- if anticoag needed consider transition to heparin infusion ID - septic shock: Resolved - secondary to presumptive UTI -Antibiogram supports de-escalation to Rocephin -Discontinue vancomycin LINES/IV ACCESS - Blayne DEGROOT Continue use of these lines DVT PROPHYLAXIS - SCDS, Warfarin -INR mildly supra therapeutic range no dose today DISPO: Stable for downgrade out of ICU I have personally spent 35 minutes of critical care time in the direct management of this patient. This is a life/limb threatening event. This includes time spent evaluating patient, direct bedside care, chart review, placing orders, interpretation of diagnostic studies, discussion with consultants, patient, and family members, as well as other required patient management activities. This time is exclusive of all separately billable procedures, and teaching time and separate from and in addition to any other critical care service time. Admission and Anticipated Discharge Date Admission Date: October 21, 2024 Subjective Patient feels significantly better compared to yesterday. No specific complaints at this time Physical Exam Physical Exam: General: Alert. nontoxic. Skin: Warm, dry, Head: Atraumatic Ears, nose, mouth and throat: airway patent Cardiovascular: Normal peripheral perfusion Respiratory: no respiratory distress Gastrointestinal: Non distended Musculoskeletal: No deformity Results & Data Results & Data Vital Signs (Past 12 Hours) Vital Signs Temp Pulse Pulse Resp BP BP Pulse Ox 10/22/24 08:03 36.5 C 92 H 24 96 10/22/24 08:00 115/67 10/22/24 08:00 115/67 10/22/24 08:00 115/67 10/22/24 08:00 115/67 10/22/24 08:00 115/67 10/22/24 08:00 115/67 10/22/24 08:00 10/22/24 08:00 10/22/24 08:00 10/22/24 08:00 90 10/22/24 07:57 36.6 C 93 H 22 96 10/22/24 07:25 87 18 97 10/22/24 07:06 36.5 C 85 19 95 10/22/24 07:00 121/67 10/22/24 07:00 121/67 10/22/24 07:00 121/67 10/22/24 07:00 121/67 10/22/24 07:00 121/67 10/22/24 07:00 36.6 C 89 22 121/67 95 10/22/24 06:57 36.4 C L 85 21 96 10/22/24 06:06 36.5 C 93 H 21 97 10/22/24 06:00 119/65 10/22/24 06:00 119/65 10/22/24 06:00 119/65 10/22/24 06:00 119/65 10/22/24 05:00 115/56 L 10/22/24 05:00 115/56 L 10/22/24 05:00 115/56 L 10/22/24 05:00 115/56 L 10/22/24 05:00 115/56 L 10/22/24 05:00 115/56 L 10/22/24 05:00 115/56 L 10/22/24 05:00 115/56 L 10/22/24 05:00 115/56 L 10/22/24 05:00 115/56 L 10/22/24 04:51 36.5 C 90 18 96 10/22/24 04:03 36.5 C 91 H 24 97 10/22/24 04:01 110/10/22/24 04:01 110/10/22/24 04:01 11010/22/24 04:01 11010/22/24 04:01 11010/22/24 04:01 11010/22/24 04:01 11010/22/24 04:01 11010/22/24 04:01 11010/22/24 04:01 11010/22/24 04:01 11010/22/24 04:01 11010/22/24 04:01 11010/22/24 04:01 11010/22/24 04:01 11010/22/24 04:01 11010/22/24 04:01 11010/22/24 04:01 110/10/22/24 04:01 11010/22/24 04:01 11010/22/24 04:01 11010/22/24 04:01 11010/22/24 04:01 11010/22/24 03:57 36.5 C 92 H 28 H 97 10/22/24 03:20 96 H 17 96 10/22/24 03:00 95/62 L 10/22/24 03:00 95/62 L 10/22/24 03:00 95/62 L 10/22/24 03:00 95/62 L 10/22/24 03:00 95/62 L 10/22/24 03:00 95/62 L 10/22/24 03:00 95/62 L 10/22/24 03:00 95/62 L 10/22/24 03:00 95/62 L 10/22/24 03:00 95/62 L 10/22/24 03:00 95/62 L 10/22/24 03:00 95/62 L 10/22/24 03:00 95/62 L 10/22/24 03:00 95/62 L 10/22/24 00:45 87 18 95 10/21/24 22:45 94 H 22 95 10/21/24 22:21 35.1 C L 97 H 24 99 10/21/24 22:00 108/67 10/21/24 22:00 108/67 10/21/24 22:00 108/67 10/21/24 22:00 108/67 10/21/24 22:00 108/67 10/21/24 22:00 108/67 10/21/24 22:00 108/67 10/21/24 22:00 108/67 10/21/24 22:00 108/10/21/24 22:00 108/10/21/24 22:00 108/10/21/24 21:57 34.6 C L 97 H 29 H 97 Pulse Ox O2 Del Method O2 Del Method FiO2 10/22/24 08:03 10/22/24 08:00 10/22/24 08:00 10/22/24 08:00 10/22/24 08:00 10/22/24 08:00 10/22/24 08:00 10/22/24 08:00 Room Air 10/22/24 08:00 96 Room Air 10/22/24 08:00 Room Air 10/22/24 08:00 10/22/24 07:57 10/22/24 07:25 Room Air 10/22/24 07:06 10/22/24 07:00 10/22/24 07:00 10/22/24 07:00 10/22/24 07:00 10/22/24 07:00 10/22/24 07:00 Room Air 10/22/24 06:57 10/22/24 06:06 10/22/24 06:00 10/22/24 06:00 10/22/24 06:00 10/22/24 06:00 10/22/24 05:00 10/22/24 05:00 10/22/24 05:00 10/22/24 05:00 10/22/24 05:00 10/22/24 05:00 10/22/24 05:00 10/22/24 05:00 10/22/24 05:00 10/22/24 05:00 10/22/24 04:51 10/22/24 04:03 10/22/24 04:01 10/22/24 04:01 10/22/24 04:01 10/22/24 04:01 10/22/24 04:01 10/22/24 04:01 10/22/24 04:01 10/22/24 04:01 10/22/24 04:01 10/22/24 04:01 10/22/24 04:01 10/22/24 04:01 10/22/24 04:01 10/22/24 04:01 10/22/24 04:01 10/22/24 04:01 10/22/24 04:01 10/22/24 04:01 10/22/24 04:01 10/22/24 04:01 10/22/24 04:01 10/22/24 04:01 10/22/24 04:01 10/22/24 03:57 10/22/24 03:20 21 10/22/24 03:00 10/22/24 03:00 10/22/24 03:00 10/22/24 03:00 10/22/24 03:00 10/22/24 03:00 10/22/24 03:00 10/22/24 03:00 10/22/24 03:00 10/22/24 03:00 10/22/24 03:00 10/22/24 03:00 10/22/24 03:00 10/22/24 03:00 10/22/24 00:45 Room Air 10/21/24 22:45 21 10/21/24 22:21 10/21/24 22:00 10/21/24 22:00 10/21/24 22:00 10/21/24 22:00 10/21/24 22:00 10/21/24 22:00 10/21/24 22:00 10/21/24 22:00 10/21/24 22:00 10/21/24 22:00 10/21/24 22:00 10/21/24 21:57 Critical Care Results & Data Vital Signs (Past 12 Hours) Vital Signs Temp Pulse Pulse Resp BP BP Pulse Ox 10/22/24 08:03 36.5 C 92 H 24 96 10/22/24 08:00 115/67 10/22/24 08:00 115/67 10/22/24 08:00 115/67 10/22/24 08:00 115/67 10/22/24 08:00 115/67 10/22/24 08:00 115/67 10/22/24 08:00 10/22/24 08:00 10/22/24 08:00 10/22/24 08:00 90 10/22/24 07:57 36.6 C 93 H 22 96 10/22/24 07:25 87 18 97 10/22/24 07:06 36.5 C 85 19 95 10/22/24 07:00 121/67 10/22/24 07:00 121/67 10/22/24 07:00 121/67 10/22/24 07:00 121/67 10/22/24 07:00 121/67 10/22/24 07:00 36.6 C 89 22 121/67 95 10/22/24 06:57 36.4 C L 85 21 96 10/22/24 06:06 36.5 C 93 H 21 97 10/22/24 06:00 119/65 10/22/24 06:00 119/65 10/22/24 06:00 119/65 10/22/24 06:00 119/65 10/22/24 05:00 115/56 L 10/22/24 05:00 115/56 L 10/22/24 05:00 115/56 L 10/22/24 05:00 115/56 L 10/22/24 05:00 115/56 L 10/22/24 05:00 115/56 L 10/22/24 05:00 115/56 L 10/22/24 05:00 115/56 L 10/22/24 05:00 115/56 L 10/22/24 05:00 115/56 L 10/22/24 04:51 36.5 C 90 18 96 10/22/24 04:03 36.5 C 91 H 24 97 10/22/24 04:01 110/66 10/22/24 04:01 110/66 10/22/24 04:01 11010/22/24 04:01 11010/22/24 04:01 11010/22/24 04:01 11010/22/24 04:01 11010/22/24 04:01 11010/22/24 04:01 11010/22/24 04:01 11010/22/24 04:01 11010/22/24 04:01 10/22/24 04:01 11010/22/24 04:01 11010/22/24 04:01 11010/22/24 04:01 10/22/24 04:01 10/22/24 04:01 10/22/24 04:01 10/22/24 04:01 10/22/24 04:01 10/22/24 04:01 10/22/24 04:01 11010/22/24 03:57 36.5 C 92 H 28 H 97 10/22/24 03:20 96 H 17 96 10/22/24 03:00 95/62 L 10/22/24 03:00 95/62 L 10/22/24 03:00 95/62 L 10/22/24 03:00 95/62 L 10/22/24 03:00 95/62 L 10/22/24 03:00 95/62 L 10/22/24 03:00 95/62 L 10/22/24 03:00 95/62 L 10/22/24 03:00 95/62 L 10/22/24 03:00 95/62 L 10/22/24 03:00 95/62 L 10/22/24 03:00 95/62 L 10/22/24 03:00 95/62 L 10/22/24 03:00 95/62 L 10/22/24 00:45 87 18 95 10/21/24 22:45 94 H 22 95 10/21/24 22:21 35.1 C L 97 H 24 99 10/21/24 22:00 108/67 10/21/24 22:00 108/67 10/21/24 22:00 108/67 10/21/24 22:00 108/67 10/21/24 22:00 108/67 10/21/24 22:00 108/10/21/24 22:00 108/67 10/21/24 22:00 108/10/21/24 22:00 108/67 10/21/24 22:00 108/67 10/21/24 22:00 108/ Pulse Ox O2 Del Method O2 Del Method FiO2 10/22/24 08:03 10/22/24 08:00 10/22/24 08:00 10/22/24 08:00 10/22/24 08:00 10/22/24 08:00 10/22/24 08:00 10/22/24 08:00 Room Air 10/22/24 08:00 96 Room Air 10/22/24 08:00 Room Air 10/22/24 08:00 10/22/24 07:57 10/22/24 07:25 Room Air 10/22/24 07:06 10/22/24 07:00 10/22/24 07:00 10/22/24 07:00 10/22/24 07:00 10/22/24 07:00 10/22/24 07:00 Room Air 10/22/24 06:57 10/22/24 06:06 10/22/24 06:00 10/22/24 06:00 10/22/24 06:00 10/22/24 06:00 10/22/24 05:00 10/22/24 05:00 10/22/24 05:00 10/22/24 05:00 10/22/24 05:00 10/22/24 05:00 10/22/24 05:00 10/22/24 05:00 10/22/24 05:00 10/22/24 05:00 10/22/24 04:51 10/22/24 04:03 10/22/24 04:01 10/22/24 04:01 10/22/24 04:01 10/22/24 04:01 10/22/24 04:01 10/22/24 04:01 10/22/24 04:01 10/22/24 04:01 10/22/24 04:01 10/22/24 04:01 10/22/24 04:01 10/22/24 04:01 10/22/24 04:01 10/22/24 04:01 10/22/24 04:01 10/22/24 04:01 10/22/24 04:01 10/22/24 04:01 10/22/24 04:01 10/22/24 04:01 10/22/24 04:01 10/22/24 04:01 10/22/24 04:01 10/22/24 03:57 10/22/24 03:20 21 10/22/24 03:00 10/22/24 03:00 10/22/24 03:00 10/22/24 03:00 10/22/24 03:00 10/22/24 03:00 10/22/24 03:00 10/22/24 03:00 10/22/24 03:00 10/22/24 03:00 10/22/24 03:00 10/22/24 03:00 10/22/24 03:00 10/22/24 03:00 10/22/24 00:45 Room Air 10/21/24 22:45 21 10/21/24 22:21 10/21/24 22:00 10/21/24 22:00 10/21/24 22:00 10/21/24 22:00 10/21/24 22:00 10/21/24 22:00 10/21/24 22:00 10/21/24 22:00 10/21/24 22:00 10/21/24 22:00 10/21/24 22:00 Lab & Micro Results (Past 24 Hours) RBC 2.86 M/uL (4.20-5.40) L 10/21/24 WBC 16.97 K/ul (4.8-10.8) H 10/21/24 Hgb 8.2 g/dl (12.0-16.0) L 10/21/24 Hct 25.9 % (37.0-47.0) L 10/21/24 MCV 90.6 fL (80.0-100.0) 10/21/24 MCH 28.7 pg (25.0-34.0) 10/21/24 MCHC 31.7 g/dL (32.0-36.0) L 10/21/24 RDW Standard Deviation 51.7 fL (36.4-46.3) H 10/21/24 RDW Coefficient of Variation 15.4 % (11.5-14.5) H 10/21/24 Plt Count 136 K/uL (130-400) 10/21/24 MPV 11.7 fL (9.4-12.4) 10/21/24 Neutrophils (%) (Auto) 95.3 % 10/21/24 Lymphocytes (%) (Auto) 1.9 % 10/21/24 Monocytes # (Auto) 0.35 K/uL (0.11-0.59) 10/21/24 Eosinophils # (Auto) 0.00 K/uL (0.00-0.50) 10/21/24 Immature Granulocyte % (Auto) 0.5 % 10/21/24 Neutrophils # (Auto) 16.18 K/uL (1.40-6.50) H 10/21/24 Lymphocytes # (Auto) 0.32 K/uL (1.20-3.40) L 10/21/24 Monocytes # (Auto) 0.35 K/uL (0.11-0.59) 10/21/24 Eosinophils # (Auto) 0.00 K/uL (0.00-0.50) 10/21/24 Basophils # (Auto) 0.04 K/uL (0.00-0.20) 10/21/24 Immature Granulocyte # (Auto) 0.08 K/uL (0.01-0.20) 5 Na 134 mmol/L (136-145) L 10/22/24 K 4.5 mmol/L (3.5-5.1) 10/22/24 Cl 107 mmol/L (98-107) 10/22/24 CO2 23 mmol/L (21-32) 10/22/24 Anion Gap 4 (3-11) 10/22/24 BUN 25 mg/dl (6-23) H 10/22/24 Creatinine 0.82 mg/dl (0.6-1.2) 10/22/24 BUN/Creatinine Ratio 30.5 (10-20) H 10/22/24 Glu 123 mg/dl (70-99(Fasting)) H 10/22/24 Ca 8.3 mg/dl (8.6-10.3) L 10/22/24 Phosphorus Level 2.4 mg/dl (2.5-4.9) L 10/22/24 Mg 2.4 mg/dl (1.7-2.4) 10/22/24 11:08 Calcium Level 8.3 mg/dl (8.6-10.3) L 10/22/24 11:08 Prothromb Time International Ratio 4.1 (0.9-1.1) H 10/22/24 03 :55 Venous Blood pH 7.33 (7.36-7.41) L 10/22/24 11:04 Microbiology 10/21/24 14:40 Aerobic Blood Culture - Preliminary Blood Gram negative bacilli Anaerobic Blood Culture - Preliminary Gram negative bacilli 10/21/24 14:40 Aerobic Blood Culture - Preliminary Blood Gram negative bacilli Anaerobic Blood Culture - Preliminary Gram negative bacilli Diagnostic Findings (Past 24 Hours) Chest X-Ray 10/21/24 14:02 XR chest 1V portable CLINICAL HISTORY: Sepsis COMPARISON STUDY: 10/05/2024 FINDINGS: There are mitral valvular calcifications. There is stable moderate cardiomegaly without pulmonary vascular congestion. No effusion, consolidation, or pneumothorax. IMPRESSION: No acute findings. ACT 112: Negative or not required by law. Electronically signed by: Marcial Aaron M.D. 10/21/2024 2:[address] 10/21/24 16:24 INDICATION: Shortness of breath. Abdominal pain. COMPARISON: No relevant priors available. TECHNIQUE: Axial CT images of the chest, abdomen and pelvis were obtained. Postcontrast CT chest images. Pre and postcontrast CT abdomen pelvis images obtained. Coronal and sagittal reformations were reviewed. FINDINGS: Chest: The thoracic aorta appears normal in caliber. The heart is mildly enlarged. No pericardial or pleural effusion. No pneumothorax. No pathologically enlarged mediastinal or hilar lymph nodes. No pulmonary consolidation. No acute osseous abnormality evident. Abdomen and pelvis: Gallstones in the gallbladder. The liver is cirrhotic. No hepatic mass identified. Mild splenomegaly. This pancreas and adrenal glands appear unremarkable. No hydronephrosis. A few small renal cysts noted. No renal calculus. No evidence of bowel obstruction/colitis/appendicitis. No free air. No drainable fluid collection. Negative for abdominal aortic aneurysm or dissection. There is a Cisneros catheter in the urinary bladder. No acute osseous abnormality evident. IMPRESSION: 1. No acute process in the chest. 2. Cirrhosis. 3. Splenomegaly. 4. Cholelithiasis. Electronically signed by Sarath Ray 10-21-2024 6:04 PM Abdomen/Pelvis CT 10/21/24 17:06 INDICATION: Shortness of breath. Abdominal pain. COMPARISON: No relevant priors available. TECHNIQUE: Axial CT images of the chest, abdomen and pelvis were obtained. Postcontrast CT chest images. Pre and postcontrast CT abdomen pelvis images obtained. Coronal and sagittal reformations were reviewed. FINDINGS: Chest: The thoracic aorta appears normal in caliber. The heart is mildly enlarged. No pericardial or pleural effusion. No pneumothorax. No pathologically enlarged mediastinal or hilar lymph nodes. No pulmonary consolidation. No acute osseous abnormality evident. Abdomen and pelvis: Gallstones in the gallbladder. The liver is cirrhotic. No hepatic mass identified. Mild splenomegaly. This pancreas and adrenal glands appear unremarkable. No hydronephrosis. A few small renal cysts noted. No renal calculus. No evidence of bowel obstruction/colitis/appendicitis. No free air. No drainable fluid collection. Negative for abdominal aortic aneurysm or dissection. There is a Cisneros catheter in the urinary bladder. No acute osseous abnormality evident. IMPRESSION: 1. No acute process in the chest. 2. Cirrhosis. 3. Splenomegaly. 4. Cholelithiasis. Electronically signed by Sarath Ray 10-21-2024 6:04 PM I & O Totals 24 Hours 10/21/24 10/22/24 10/23/24 06:59 06:59 06:59 Intake Total 5460.517 / 5460.517 112.506 / 112.506 Output Total 1345 / 1345 200 / 200 Balance 4115.517 / 4115.517 -87.494 / -87.494 Cumulative 10/21/24 13:45 thru 10/22/24 09:00 Intake Total 5573.023 Output Total 1545 Balance 4028.023 RT Ventilator Mngmt (Last Documented) Ventilator Ordered Settings Respiratory Rate 24 10/22/24 08:03 Fraction of Inspired Oxygen 21 10/22/24 03:20 Ventilator - PT Measurements Respiratory Rate 24 Coding Level of Care Code 80130 SUB INP/OBS CARE 3/50MIN Diagnoses Septic shock A41.9; R65.21 Lactic acidosis E87.20 Hyperlipidemia, unspecified hyperlipidemia type E78.5 Hyperlipidemia type: unspecified Insulin dependent type 2 diabetes mellitus E11.9; Z79.4 Chronic atrial fibrillation I48.20 Supratherapeutic INR R79.1 Elevated troponin R79.89 Acute hypoxic respiratory failure J96.01 (3) Hyperlipidemia Hyperlipidemia type: unspecified Qualified Code(s): E78.5 - Hyperlipidemia, unspecified
--- NOTE | 2024-10-22 10:08 | Hospitalist Progress Note ---
Date of Service October 22, 2024 Assessment & Plan (1) Severe sepsis: (2) Acute hypoxic respiratory failure: (3) DKA, type 2: (4) Lactic acidosis: (5) Chronic atrial fibrillation: (6) Supratherapeutic INR: (7) Elevated troponin: Plan Ms. 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 Admitted with severe sepsis with presumed urinary source. Pt with multiple recent admissions: Admitted 09/06-09/11 COPD exac 09/07 RSV. Admitted 09/26-10/08 2/ acute hypoxic resp failure in setting of CHF Exacerbation Suspected Severe sepsis, borderline Septic Shock Lactic acidosis Acute hypoxic respiratory failure at this time unknown source of sepsis Resp biofire negative Chest XR and chest CT unremarkable Procalcitonin elevated UA suggestive of infection, Urine Cx pending Blood Cx x 2 sets currently growing gram negative bacilli Received 2L of fluid bolus in ED with initial improvement in lactic acidosis received broad spectrum IV antibiotics with Vanco/Cefepime--transitioned to Ceftriaxone currently Continue to monitor DKA uncontrolled T2DM insulin dependent on insulin pump Diabetic polyneuropathy ABG pH normal, but pt with anion gap, low bicarb, hyperglycemic Insulin gtt protocol initiated in ED serial labs, accuchecks last a1c 12.2 in September glycemic pharmacy consult Hypomagnesemia mag 1.6, replace to keep > 2.0 given hx of torsades Chronic atrial fibrillation Supratherapeutic INR CAD hx of torsades de pointes hold warfarin, no evidence of bleeding Follow INR and resume as able COPD does not appear in overt exacerbation duonebs scheduled Cirrhosis Noted on CT abd/pelvis WIll need outpt followup Diet: DMII DVT ppx: Supratherapeutic INR, warfarin on hold, follow INR Dispo: PT/OT for further recs once medically stable Admission and Anticipated Discharge Date Admission Date: October 21, 2024 Subjective Pt was seen while down in the ICU in the AM Family at bedside AAOx2 States she has been taking her medications at home Review of Systems Review of Systems: All systems reviewed & are unremarkable except as noted in Subjective Physical Exam Physical Exam: General: Alert, orientedx2. HEENT: NC/AT CV: RRR Resp: Breath sounds clear bilaterally, no increased effort of breathing Abdomen: Soft, nontender Extremities: No edema in lower extremities bilaterally. Results & Data Results & Data Vital Signs (Past 12 Hours) Vital Signs Temp Pulse Pulse Resp BP BP Pulse Ox 10/22/24 08:03 36.5 C 92 H 24 96 10/22/24 08:00 115/67 10/22/24 08:00 115/67 10/22/24 08:00 115/67 10/22/24 08:00 115/67 10/22/24 08:00 115/67 10/22/24 08:00 115/67 10/22/24 08:00 10/22/24 08:00 10/22/24 08:00 10/22/24 08:00 90 10/22/24 07:57 36.6 C 93 H 22 96 10/22/24 07:25 87 18 97 10/22/24 07:06 36.5 C 85 19 95 10/22/24 07:00 121/67 10/22/24 07:00 121/67 10/22/24 07:00 121/67 10/22/24 07:00 121/67 10/22/24 07:00 121/67 10/22/24 07:00 36.6 C 89 22 121/67 95 10/22/24 06:57 36.4 C L 85 21 96 10/22/24 06:06 36.5 C 93 H 21 97 10/22/24 06:00 119/65 10/22/24 06:00 119/65 10/22/24 06:00 119/65 10/22/24 06:00 119/65 10/22/24 05:00 115/56 L 10/22/24 05:00 115/56 L 10/22/24 05:00 115/56 L 10/22/24 05:00 115/56 L 10/22/24 05:00 115/56 L 10/22/24 05:00 115/56 L 10/22/24 05:00 115/56 L 10/22/24 05:00 115/56 L 10/22/24 05:00 115/56 L 10/22/24 05:00 115/56 L 10/22/24 04:51 36.5 C 90 18 96 10/22/24 04:03 36.5 C 91 H 24 97 10/22/24 04:01 11010/22/24 04:01 11010/22/24 04:01 11010/22/24 04:01 11010/22/24 04:01 11010/22/24 04:01 11010/22/24 04:01 11010/22/24 04:01 11010/22/24 04:01 11010/22/24 04:01 11010/22/24 04:01 11010/22/24 04:01 10/22/24 04:01 10/22/24 04:01 10/22/24 04:01 10/22/24 04:01 10/22/24 04:01 10/22/24 04:01 10/22/24 04:01 11010/22/24 04:01 11010/22/24 04:01 11010/22/24 04:01 11010/22/24 04:01 11010/22/24 03:57 36.5 C 92 H 28 H 97 10/22/24 03:20 96 H 17 96 10/22/24 03:00 95/62 L 10/22/24 03:00 95/62 L 10/22/24 03:00 95/62 L 10/22/24 03:00 95/62 L 10/22/24 03:00 95/62 L 10/22/24 03:00 95/62 L 10/22/24 03:00 95/62 L 10/22/24 03:00 95/62 L 10/22/24 03:00 95/62 L 10/22/24 03:00 95/62 L 10/22/24 03:00 95/62 L 10/22/24 03:00 95/62 L 10/22/24 03:00 95/62 L 10/22/24 03:00 95/62 L 10/22/24 00:45 87 18 95 10/21/24 22:45 94 H 22 95 10/21/24 22:21 35.1 C L 97 H 24 99 Pulse Ox O2 Del Method O2 Del Method FiO2 10/22/24 08:03 10/22/24 08:00 10/22/24 08:00 10/22/24 08:00 10/22/24 08:00 10/22/24 08:00 10/22/24 08:00 10/22/24 08:00 Room Air 10/22/24 08:00 96 Room Air 10/22/24 08:00 Room Air 10/22/24 08:00 10/22/24 07:57 10/22/24 07:25 Room Air 10/22/24 07:06 10/22/24 07:00 10/22/24 07:00 10/22/24 07:00 10/22/24 07:00 10/22/24 07:00 10/22/24 07:00 Room Air 10/22/24 06:57 10/22/24 06:06 10/22/24 06:00 10/22/24 06:00 10/22/24 06:00 10/22/24 06:00 10/22/24 05:00 10/22/24 05:00 10/22/24 05:00 10/22/24 05:00 10/22/24 05:00 10/22/24 05:00 10/22/24 05:00 10/22/24 05:00 10/22/24 05:00 10/22/24 05:00 10/22/24 04:51 10/22/24 04:03 10/22/24 04:01 10/22/24 04:01 10/22/24 04:01 10/22/24 04:01 10/22/24 04:01 10/22/24 04:01 10/22/24 04:01 10/22/24 04:01 10/22/24 04:01 10/22/24 04:01 10/22/24 04:01 10/22/24 04:01 10/22/24 04:01 10/22/24 04:01 10/22/24 04:01 10/22/24 04:01 10/22/24 04:01 10/22/24 04:01 10/22/24 04:01 10/22/24 04:01 10/22/24 04:01 10/22/24 04:01 10/22/24 04:01 10/22/24 03:57 10/22/24 03:20 21 10/22/24 03:00 10/22/24 03:00 10/22/24 03:00 10/22/24 03:00 10/22/24 03:00 10/22/24 03:00 10/22/24 03:00 10/22/24 03:00 10/22/24 03:00 10/22/24 03:00 10/22/24 03:00 10/22/24 03:00 10/22/24 03:00 10/22/24 03:00 10/22/24 00:45 Room Air 10/21/24 22:45 21 10/21/24 22:21 Diagnostic Findings Chest X-Ray 10/21/24 14:02 XR chest 1V portable CLINICAL HISTORY: Sepsis COMPARISON STUDY: 10/05/2024 FINDINGS: There are mitral valvular calcifications. There is stable moderate cardiomegaly without pulmonary vascular congestion. No effusion, consolidation, or pneumothorax. IMPRESSION: No acute findings. ACT 112: Negative or not required by law. Electronically signed by: Marcial Aaron M.D. 10/21/2024 2:[address] 10/21/24 16:24 INDICATION: Shortness of breath. Abdominal pain. COMPARISON: No relevant priors available. TECHNIQUE: Axial CT images of the chest, abdomen and pelvis were obtained. Postcontrast CT chest images. Pre and postcontrast CT abdomen pelvis images obtained. Coronal and sagittal reformations were reviewed. FINDINGS: Chest: The thoracic aorta appears normal in caliber. The heart is mildly enlarged. No pericardial or pleural effusion. No pneumothorax. No pathologically enlarged mediastinal or hilar lymph nodes. No pulmonary consolidation. No acute osseous abnormality evident. Abdomen and pelvis: Gallstones in the gallbladder. The liver is cirrhotic. No hepatic mass identified. Mild splenomegaly. This pancreas and adrenal glands appear unremarkable. No hydronephrosis. A few small renal cysts noted. No renal calculus. No evidence of bowel obstruction/colitis/appendicitis. No free air. No drainable fluid collection. Negative for abdominal aortic aneurysm or dissection. There is a Cisneros catheter in the urinary bladder. No acute osseous abnormality evident. IMPRESSION: 1. No acute process in the chest. 2. Cirrhosis. 3. Splenomegaly. 4. Cholelithiasis. Electronically signed by Sarath Ray 10-21-2024 6:04 PM Abdomen/Pelvis CT 10/21/24 17:06 INDICATION: Shortness of breath. Abdominal pain. COMPARISON: No relevant priors available. TECHNIQUE: Axial CT images of the chest, abdomen and pelvis were obtained. Postcontrast CT chest images. Pre and postcontrast CT abdomen pelvis images obtained. Coronal and sagittal reformations were reviewed. FINDINGS: Chest: The thoracic aorta appears normal in caliber. The heart is mildly enlarged. No pericardial or pleural effusion. No pneumothorax. No pathologically enlarged mediastinal or hilar lymph nodes. No pulmonary consolidation. No acute osseous abnormality evident. Abdomen and pelvis: Gallstones in the gallbladder. The liver is cirrhotic. No hepatic mass identified. Mild splenomegaly. This pancreas and adrenal glands appear unremarkable. No hydronephrosis. A few small renal cysts noted. No renal calculus. No evidence of bowel obstruction/colitis/appendicitis. No free air. No drainable fluid collection. Negative for abdominal aortic aneurysm or dissection. There is a Cisneros catheter in the urinary bladder. No acute osseous abnormality evident.
[2024-10-22] MEDS: cefTRIAXone SODIUM 2,000 MG/50 ML BAG IV SCH (10:25)
[2024-10-22] MEDS ORDERED: GLUCOSE 10 TAB/TUBE PO PRN (10:45)
[2024-10-22] MEDS ORDERED: DEXTROSE 50% 50 ML SYRINGE IV PRN (10:45)
[2024-10-22] MEDS ORDERED: GLUCOSE 40% GEL 15 GM TUBE PO PRN (10:45)
[2024-10-22] MEDS ORDERED: GLUCAGON FOR INJ 1 MG VIAL SQ PRN (10:45)
[2024-10-22] MEDS: LANTUS PER UNIT CHARGE SC STA (10:52)
[2024-10-22] MEDS: THIAMINE HCL 500 MG in SODIUM CHLORIDE 0.9% 50 ML IV SCH (11:14)
[2024-10-22] MEDS: INSULIN ASPART PER UNIT CHARGE SC SCH (11:50)
[2024-10-22 11:58] LABS: BUN Creatinine Ratio 30.5 (10-20); Calcium 8.3 mg/dl (8.6-10.3); Creatinine Clr Calc Pharmacy 67.9 ml/min; Magnesium 2.4 mg/dl (1.7-2.4); Phosphorus 2.4 mg/dl (2.5-4.9); Potassium 4.5 mmol/L (3.5-5.1)
--- NOTE | 2024-10-22 15:26 | Pharmacy Report ---
Pharmacy Glycemic Short Note 2 - Date of Service October 22, 2024 - Glycemic Short BSG Results (Last 24 hours): 10/21/24 10/21/24 10/21/24 14:06 16:21 16:28 Glucose 467 H* 456 H* POC Glucose 409 H* 10/21/24 10/21/24 10/21/24 19:12 19:21 20:04 Glucose 440 H* POC Glucose 409 H* 409 H* 10/21/24 10/21/24 10/21/24 21:06 21:55 23:01 Glucose POC Glucose 418 H* 406 H* 378 H* 10/21/24 10/22/24 10/22/24 23:08 01:02 02:09 Glucose 401 H* POC Glucose 359 H* 336 H* 10/22/24 10/22/24 10/22/24 03:07 03:55 04:14 Glucose 316 H* POC Glucose 341 H* 297 H 10/22/24 10/22/24 10/22/24 05:53 07:08 07:34 Glucose 186 H POC Glucose 243 H 220 H 10/22/24 10/22/24 10/22/24 07:42 08:55 09:53 Glucose POC Glucose 192 H 158 H 137 H 10/22/24 10/22/24 10/22/24 10:48 11:08 11:44 Glucose 123 H POC Glucose 114 H 157 H 10/22/24 10/22/24 12:49 14:02 Glucose POC Glucose 160 H 182 H OUTPATIENT ANTIDIABETIC REGIMEN: * A1c 12.2% 09/06/24 * Metformin 1000mg BID * Ozempic 2mg weekly (Sundays) * Aspart/Novolog via Medtronic 780G insulin pump * Basal: * 1575-0687: 8 units/hr * 1855-0975: 8 units/hr * 8114-7128: 8.9 units/hr * Total: 202.8 units Bolus: ISF: 10 ICR: 5 but uses preset dosing of 25 units with breakfast, 25 + 20 units with lunch, 25 + 15 units with supper BG Target: 100-140 Estimated TDD: ~325-350 units Actual TDD: 210.475 units Basal: 155.6 units (74%) Bolus: 54.8 units (26%) ASSESSMENT: * Patient admitted with hyperglycemia requiring insulin infusion and E. coli bacteremia. * AG closed this morning. Patient was discussed on multidisciplinary rounds and the decision was made to attempt a drip transition, despite high insulin infusion rate (14 units/hr). Patient was given a once time dose of lantus and the infusion as successfully turned off after 3 hours of overlap at 3pm. Patient was also ordered a diet with lunch. * Lantus scale ordered for this evening. Patient previously has required large doses of insulin and given high rate of insulin infusion, patient may experience some hyperglycemia this evening. Will monitor BSGs off of the drip and adjust basal/bolus dosing accordingly. PLAN FOR INPATIENT GLYCEMIC CONTROL: * Hold outpatient oral diabetes medications * Basal insulin * Lantus 60 units SQ X 1 * Lantus scale this evening based on BSG- 0,10,20 units * Bolus insulin * NovoLog per scale ACHS or Q6hrs while NPO * Goal Range: Low 110 mg/dL - High 140 mg/dL * Correction Factor: 15 mg/dL/unit * Nutritional / Prandial insulin per carb ratio of 1 unit per 4 grams CHO consumed
[2024-10-22] MEDS: LANTUS PER UNIT CHARGE SC SCH (21:24)
[2024-10-23] MEDS: INSULIN ASPART PER UNIT CHARGE SC SCH (00:26)
[2024-10-23] MEDS: METOPROLOL TARTRATE 1 MG/ML VIAL IV STA ×2 (04:18→05:59)
[2024-10-23 04:19] LABS: Base Excess VBG -5.5 mEq/L; HCO3 VBG 22 mmol/L; Oxygen Saturation VBG < 60.0 %; PCO2 VBG 52 mmHg (38-50); PO2 VBG 23 mmHg; pH VBG 7.24 (7.36-7.41)
[2024-10-23 04:25] LABS: Hematocrit (blood only) 30.8 % (37.0-47.0); Hemoglobin 9.8 g/dl (12.0-16.0); Mean Corpuscular Hgb Conc 31.8 g/dL (32.0-36.0); Platelet Count 232 K/uL (130-400); RDW Coefficient of Variation 15.9 % (11.5-14.5); White Blood Count 22.56 K/ul (4.8-10.8)
[2024-10-23] MEDS: FUROSEMIDE INJ 20 MG/2 ML VIAL IV ONE ×2 (04:35→05:52)
[2024-10-23 04:47] LABS: BUN Creatinine Ratio 29.8 (10-20); Basophils # (auto) 0.03 K/uL (0.00-0.20); Basophils % (auto) 0.1 %; Calcium 8.9 mg/dl (8.6-10.3); Creatinine Clr Calc Pharmacy 53.5 ml/min; Immature Granulocytes # (auto) 0.29 K/uL (0.01-0.20); Immature Granulocytes % (auto) 1.3 %; Lymphocytes # (auto) 1.02 K/uL (1.20-3.40); Lymphocytes % (auto) 4.5 %; Magnesium 2.5 mg/dl (1.7-2.4); Monocytes # (auto) 0.97 K/uL (0.11-0.59); Monocytes % (auto) 4.3 %; Neutrophils # (auto) 20.25 K/uL (1.40-6.50); Neutrophils % (auto) 89.8 %; Ovalocytes 1+; Polychromasia 1+; Potassium 5.2 mmol/L (3.5-5.1); Toxic Granulation 1+
[2024-10-23 05:01] LABS: Prothrombin Time 29.8 Seconds (9.0-12.0)
--- NOTE | 2024-10-23 05:02 | XRay Report ---
EXAM: XR chest 1V portable CLINICAL HISTORY: SOB. TECHNIQUE: An X-ray image of the chest is obtained in AP projection. COMPARISON: 10/21/2024 X-RAY and CT. FINDINGS: Pulmonary Parenchyma: Diffuse bilateral interstitial thickening, reticulations, and nodularity, may represent interstitial edema, however, early infection couldn't excluded. nearly stable No evidence of consolidation, collapse, or focal opacities. No pulmonary nodules are identified. Interval new opacification of the right lower lung zone may be positional. Heart and Mediastinum: Enlarged cardiac size with bilateral hilar vascular congestion noted. No mediastinal widening or masses. No hilar or mediastinal lymphadenopathy. Bony Thorax: The bony thorax appears intact without fractures or deformities. Soft Tissues: Soft tissues overlying the chest wall are unremarkable. IMPRESSION: 1. Diffuse bilateral interstitial thickening, reticulations, and nodularity, may represent interstitial edema, however, early infection couldn't excluded. nearly stable 2. Interval new opacification of the right lower lung zone may be positional. 3. Cardiomegaly was unchanged. Electronically signed by Benji López 10-23-2024 05:02 AM
[2024-10-23 05:42] LABS: Base Excess VBG -1.3 mEq/L; HCO3 VBG 24 mmol/L; Oxygen Saturation VBG < 60.0 %; PCO2 VBG 40 mmHg (38-50); PO2 VBG 30 mmHg; pH VBG 7.38 (7.36-7.41)
[2024-10-23] MEDS: LEVALBUTEROL 1.25 MG/3 ML NEB NEB SCH (07:33)
[2024-10-23] MEDS: IPRATROPIUM BROMIDE NEB SOLN 0.02% 0.5MG/2.5ML VIAL INH SCH (07:33)
--- NOTE | 2024-10-23 08:41 | Electrocardiogram Report ---
Test Reason : Blood Pressure : */* mmHG Vent. Rate : 105 BPM Atrial Rate : 105 BPM P-R Int : 148 ms QRS Dur : 92 ms QT Int : 382 ms P-R-T Axes : 1 70 -50 degrees QTcB Int : 504 ms Sinus tachycardia Nonspecific ST abnormality Incomplete right bundle branch block Prolonged QT Abnormal ECG When compared with ECG of 21-Oct-2024 14:11, Premature atrial complexes are no longer Present ST now depressed in Anterior leads T wave inversion now evident in Inferior leads T wave inversion now evident in Lateral leads Confirmed by Isaac Man ([id number]) on 10/23/2024 8:41:31 AM Referred By: REFERRED SELF Confirmed By: Isaac Man
[2024-10-23] MEDS: LANTUS PER UNIT CHARGE SC SCH (08:52)
[2024-10-23] MEDS: PIPERACILLIN/TAZOBACTAM 4.5 GM/100 ML BAG IV STA (09:36)
--- NOTE | 2024-10-23 10:19 | Ultrasound Report ---
US abdomen ltd ascites CLINICAL HISTORY: cirrhosis, volume overload, r/o ascites COMPARISON STUDY: CT of 10/21/2024 FINDINGS: 4 quadrants of the abdomen were examined with ultrasound. No ascites seen. IMPRESSION: No ascites seen. ACT 112: Negative or not required by law. Electronically signed by: Marcial Aaron M.D. 10/23/2024 10:17 AM
--- NOTE | 2024-10-23 11:30 | Pulmonary Consultation ---
Date of Consultation October 23, 2024 Assessment & Plan (1) COPD (chronic obstructive pulmonary disease): COPD type: unspecified COPD Qualified Code(s): J44.9 - Chronic obstructive pulmonary disease, unspecified (2) Acute hypoxic respiratory failure: (3) Morbid obesity: Plan CT chest 10/21/2024 personally reviewed: Patchy groundglass opacities appreciated in the right upper lobe as well as left upper lobe Cardiomegaly No significant mediastinal lymphadenopathy 2D echo 10/22/2024: EF 60-65%, mild concentric LVH, mild MR, mild MS, mild TR, PASP 46 mmHg --Acute hypoxic respiratory failure BNP 1156 on presentation Respiratory BioFire negative for everything on 10/21/2024 Nasal MRSA negative, procalcitonin 15.3 --A-fib On warfarin at home --DNR/DNI --E. coli bacteremia Antibiotics as per primary team Plan: Positive 4.5 L since coming to the hospital Chest x-ray from today shows worsening vascular congestion compared to the time of presentation and I would recommend aggressive diuresis Continue with BiPAP to keep O2 saturation around 90-92% Case was discussed with primary team Please note the above document was generated using voice recognition software. It may contain grammatical, syntax or spelling errors.Any formal questions or concerns about the content, text or information contained within the body of this dictation should be directly addressed to the provider for clarification. History of Present Illness Attending Physician: Alba Wyatt MD History of Present Illness 74-year-old female admitted to the hospital for worsening shortness of breath Past medical history: HFpEF, hypertension, dyslipidemia, A-fib on warfarin, diabetes type 2, history of breast cancer and DVT Pulmonary consulted for increasing oxygen requirement and BiPAP dependence At the time of examination patient was on BiPAP She was saturating 98-99% on 50% FiO2, I went down to 40% She stated that she is feeling better now She did complain of significant issues with anxiety. Denies any abdominal pain Has been diuresing well No nausea or vomiting Has been afebrile Social history: Approximately [id number] smoking history, quit a while ago Allergies Allergy/AdvReac Type Severity Reaction Status Date / Time alendronate sodium Allergy Severe DIFFICULTY Verified 10/21/24 15:12 BREATHING/BURNING SENSATION esomeprazole Allergy Intermediate Hives Verified 10/21/24 15:12 Home Medications Medication Instructions Recorded Confirmed Type albuterol sulfate 90 mcg/actuation 2 puff inhalation QID PRN 01/12/20 10/21/24 History aerosol inhaler (Ventolin HFA) Shortness Of Breath Or Wheezing fluticasone propionate 50 2 spray intranasal QAM 01/12/20 10/21/24 History mcg/actuation nasal spray,suspension (Flonase Allergy Relief) metformin 1,000 mg tablet 1,000 mg PO BIDM 01/12/20 10/21/24 History nitroglycerin 0.3 mg sublingual 0.3 mg sublingual .PRN/UD PRN 01/12/20 10/21/24 History tablet (Nitrostat) Chest Pain warfarin 5 mg tablet 5 mg PO MOWEFRSA@1600 01/12/20 10/21/24 History cholecalciferol (vitamin D3) 25 1,000 unit PO QAM #30 caps 01/19/20 10/21/24 Rx mcg (1,000 unit) capsule multivitamin (Daily-Moiz tablet) 1 tab PO QAM #30 tabs 01/19/20 10/21/24 Rx cyanocobalamin (vitamin B-12) 1,000 mcg sublingual DAILY 09/21/22 10/21/24 History 1,000 mcg sublingual tablet aspirin 81 mg tablet,delayed 81 mg PO QAM 11/15/23 10/21/24 History release insulin aspart U-100 100 unit/mL See Rx Instructions .Route .COMPLEX 11/15/23 10/21/24 History subcutaneous solution (Novolog U-100 Insulin aspart) isosorbide mononitrate 60 mg 60 mg PO QAM 11/15/23 10/21/24 History tablet,extended release 24 hr rosuvastatin 20 mg tablet 20 mg PO QAM 11/15/23 10/21/24 History potassium chloride 20 mEq 20 meq PO 3XWK #30 tabs 11/17/23 10/21/24 Rx tablet,extended release famotidine 40 mg tablet 40 mg PO DAILY 09/05/24 10/21/24 History furosemide 20 mg tablet 20 mg PO QAM #30 tabs 10/08/24 10/21/24 Rx metoprolol succinate 25 mg 12.5 mg (1/2 x 25 mg) PO QAM #15 10/08/24 10/21/24 Rx tablet,extended release 24 hr tabs warfarin 5 mg tablet 10 mg PO SUTUTH@1600 10/21/24 10/21/24 History Patient History Medical History Benign neoplasm of colon Osteoarthritis History of DVT (deep vein thrombosis) "RLE x 2 in 1980s" 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) "Abnormal left breast mammogram 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 Estrogen receptor positive and progesterone receptor positive Status post lumpectomy with sentinel lymph node biopsy stage [id number] 04/07/2015 Status post completion of radiation therapy 07/21/2015 received 6640 cGy" On 07/25/15 17:54 Jayleen Bates wrote "Abnormal left breast mammogram 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 Estrogen receptor positive and progesterone receptor positive Status post lumpectomy with sentinel lymph node biopsy stage [id number] 04/07/2015 Status post completion of radiation therapy 07/21/2015 received 6640 cGy" On 07/25/15 17:49 Jayleen Bates wrote "Abnormal left breast mammogram 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 Estrogen receptor positive and progesterone receptor positive Status post lumpectomy with sentinel lymph node biopsy stage [id number] 04/07/2015" Surgical History H/O partial mastectomy "left breast 04/2015 with lymph node biopsy" H/O arthroscopic knee surgery H/O colonoscopy History of carpal tunnel surgery S/P cervical spinal fusion S/P dilation and curettage H/O vein stripping Family History Other Breast cancer Diabetes Heart disease Social History Smoking Status: Former smoker Tobacco Type: Cigarettes Second Hand Exposure: No; Do You Dip or Chew Tobacco: No; Hx Alcohol Use: No Hx Substance Use: No Preferred Language: Amharic Communication Ability: Effective Hi Teacher Required: No Beliefs That Will Affect Care: None Current Living Situation: Family Current Living Situation Comment: lives at home with and step-son Other Information That Helps Us Care for You: No Feels Safe at Home: Yes Safety Concerns: Feels Safe At This Time Assistive Devices: Nebulizer, Walker and Other Review of Systems 2 Review of Systems: All systems reviewed & are unremarkable except as noted in HPI & below Physical Exam 2 Physical Exam: Constitutional: No acute distress HEENT: EOMI, PERRLA Respiratory system: Decreased air entry bilaterally, no wheeze, no rhonchi, minimal crackles bilateral lower lobes CVS: S1-S2 positive, +3 out of 6 systolic murmur appreciated best at aorta Abdomen: Soft, nontender, nondistended, positive bowel sounds x4 Extremities: +2 pulses bilaterally radialis/ dorsalis pedis, no cyanosis, +1 pitting edema bilateral lower extremity Neuro: Awake alert oriented x3 Psych: Normal mood and affect G/U: Positive Cisneros Skin: no rashes, warm and dry Lymphatic: no cervical or axillary lymphadenopathy Results & Data Results & Data Vital Signs (Past 12 Hours) Vital Signs Temp Pulse Pulse Resp BP BP Pulse Ox 10/23/24 07:42 37.1 C 108 H 20 114/58 L 96 10/23/24 07:34 104 H 20 96 10/23/24 06:25 100 H 112/69 10/23/24 05:59 106 H 112/64 10/23/24 05:19 130 H 30 H 97 10/23/24 04:38 37.2 C 120 H 26 H 147/86 H 96 10/23/24 04:33 120 H 147/86 H 10/23/24 04:18 134 H 159/73 H 10/23/24 04:07 37.3 C 134 H 22 159/73 H 10/23/24 03:57 124 H 32 H 94 10/23/24 03:57 124 H 30 H 94 10/23/24 03:56 118 H 141/88 H 10/23/24 02:36 36.8 C 102 H 18 138/78 96 10/23/24 02:05 101 H 26 H 96 10/23/24 01:13 28 H 10/23/24 00:21 30 H 93 10/22/24 23:58 100 H 28 H 96 O2 Del Method O2 Flow Rate FiO2 10/23/24 07:42 Nasal Cannula 2 03/20/25 07:34 Nasal Cannula 2 10/23/24 06:25 10/23/24 05:59 10/23/24 05:19 40 10/23/24 04:38 CPAP 10/23/24 04:33 10/23/24 04:18 10/23/24 04:07 CPAP 10/23/24 03:57 21 10/23/24 03:57 BiPAP 21 10/23/24 03:56 10/23/24 02:36 CPAP 10/23/24 02:05 21 10/23/24 01:13 21 10/23/24 00:21 BiPAP 21 10/22/24 23:58 21 Laboratory Results 10/23/24 04:05 10/23/24 04:05 PG Care Time/CCT Total # of Minutes Spent Total Time Spent with Patient: Total time spent is greater than 50% in coordination of care (as documented) at patient's floor/unit and/or counseling patient: Coding Level of Care Code 31739 INT INP/OBS CARE MIN Diagnoses Chronic obstructive pulmonary disease, unspecified COPD type J44.9 COPD type: unspecified COPD Acute hypoxic respiratory failure J96.01 Morbid obesity E66.01
--- NOTE | 2024-10-23 12:47 | Gastrointestinal Consultation ---
<Statement entered by Rashid Rubio MD - 10/23/24 16:45> I have reviewed the history, physical exam, lab and imaging findings as dictated by the mid-level provider, made any necessary modifications, and agree with the stated assessment and recommendations. A total of 45 minutes was spent in the review, direct observation, decision making and discussion of this case with the patient/family and other providers. Rashid Rubio MD Date of Consultation October 23, 2024 Assessment & Plan (1) Cirrhosis: No acute liver decompensation warranting immediate inpatient intervention. Imaging incidentally noting cirrhosis. Basis ? - MASH, congestive hepatopathy; others less likely. She can establish with hepatology/GI as an outpatient when her acute DKA, bacteremia, & sepsis resolves. Will order infectious hepatitis and autoimmune studies. History of Present Illness Reason for Consultation: New diagnosis of Cirrhosis Attending Physician: Alba Wyatt MD History of Present Illness Patient is a 74 yo female currently hospitalized with DKA, septic shock & gram negative bacteremia from UTI, with acute respiratory failure. She is chronically anticoagulated due to A fib (on warfarin). She was brought to the hospital after worsening SOB x 4 days. She has a variety of lab and diagnostic abnormalities secondary to the DKA, bacteremia & shock, as well as her chronic cardiac conditions. GI was consulted due to "new" diagnosis of cirrhosis. She currently does not have any evidence of decompensated liver disease. MELD 21 artificially inflated by her INR on Coumadin. T bili 0.9. AST 44. ALT 25. Allergies Allergy/AdvReac Type Severity Reaction Status Date / Time alendronate sodium Allergy Severe DIFFICULTY Verified 10/21/24 15:12 BREATHING/BURNING SENSATION esomeprazole Allergy Intermediate Hives Verified 10/21/24 15:12 Home Medications Medication Instructions Recorded Confirmed Type albuterol sulfate 90 mcg/actuation 2 puff inhalation QID PRN 01/12/20 10/21/24 History aerosol inhaler (Ventolin HFA) Shortness Of Breath Or Wheezing fluticasone propionate 50 2 spray intranasal QAM 01/12/20 10/21/24 History mcg/actuation nasal spray,suspension (Flonase Allergy Relief) metformin 1,000 mg tablet 1,000 mg PO BIDM 01/12/20 10/21/24 History nitroglycerin 0.3 mg sublingual 0.3 mg sublingual .PRN/UD PRN 01/12/20 10/21/24 History tablet (Nitrostat) Chest Pain warfarin 5 mg tablet 5 mg PO MOWEFRSA@1600 01/12/20 10/21/24 History cholecalciferol (vitamin D3) 25 1,000 unit PO QAM #30 caps 01/19/20 10/21/24 Rx mcg (1,000 unit) capsule multivitamin (Daily-Moiz tablet) 1 tab PO QAM #30 tabs 01/19/20 10/21/24 Rx cyanocobalamin (vitamin B-12) 1,000 mcg sublingual DAILY 09/21/22 10/21/24 Histo ry 1,000 mcg sublingual tablet aspirin 81 mg tablet,delayed 81 mg PO QAM 11/15/23 10/21/24 History release insulin aspart U-100 100 unit/mL See Rx Instructions .Route .COMPLEX 11/15/23 0 10/21/24 History subcutaneous solution (Novolog U-100 Insulin aspart) isosorbide mononitrate 60 mg 60 mg PO QAM 11/15/23 10/21/24 History tablet,extended release 24 hr rosuvastatin 20 mg tablet 20 mg PO QAM 11/15/23 10/21/24 History potassium chloride 20 mEq 20 meq PO 3XWK #30 tabs 11/17/23 10/21/24 Rx tablet,extended release famotidine 40 mg tablet 40 mg PO DAILY 09/05/24 10/21/24 History furosemide 20 mg tablet 20 mg PO QAM #30 tabs 10/08/24 10/21/24 Rx metoprolol succinate 25 mg 12.5 mg (1/2 x 25 mg) PO QAM #15 10/08/24 10/21/24 Rx tablet,extended release 24 hr tabs warfarin 5 mg tablet 10 mg PO SUTUTH@1600 10/21/24 10/21/24 History Patient History Medical History Benign neoplasm of colon Osteoarthritis History of DVT (deep vein thrombosis) "RLE x 2 in 1980s" 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) "Abnormal left breast mammogram 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 Estrogen receptor positive and progesterone receptor positive Status post lumpectomy with sentinel lymph node biopsy stage [id number] 04/07/2015 Status post completion of radiation therapy 07/21/2015 received 6640 cGy" On 07/25/15 17:54 Jayleen Bates wrote "Abnormal left breast mammogram 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 Estrogen receptor positive and progesterone receptor positive Status post lumpectomy with sentinel lymph node biopsy stage [id number] 04/07/2015 Status post completion of radiation therapy 07/21/2015 received 6640 cGy" On 07/25/15 17:49 Jayleen Bates wrote "Abnormal left breast mammogram 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 Estrogen receptor positive and progesterone receptor positive Status post lumpectomy with sentinel lymph node biopsy stage [id number] 04/07/2015" Surgical History H/O partial mastectomy "left breast 04/2015 with lymph node biopsy" H/O arthroscopic knee surgery H/O colonoscopy History of carpal tunnel surgery S/P cervical spinal fusion S/P dilation and curettage H/O vein stripping Family History Other Breast cancer Diabetes Heart disease Social History Smoking Status: Former smoker Tobacco Type: Cigarettes Second Hand Exposure: No; Do You Dip or Chew Tobacco: No; Hx Alcohol Use: No Hx Substance Use: No Preferred Language: Dominican Communication Ability: Effective 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 Beliefs That Will Affect Care: None Current Living Situation: Family Current Living Situation Comment: lives at home with and step-son Other Information That Helps Us Care for You: No Feels Safe at Home: Yes Safety Concerns: Feels Safe At This Time Assistive Devices: Nebulizer, Walker and Other Results & Data Vital Signs (Past 12 Hours) Vital Signs Temp Pulse Pulse Resp BP BP Pulse Ox 10/23/24 11:29 37.2 C 104 H 19 96/54 L 96 10/23/24 07:42 37.1 C 108 H 20 114/58 L 96 10/23/24 07:34 104 H 20 96 03/20/25 06:25 100 H 112/69 10/23/24 05:59 106 H 112/64 10/23/24 05:19 130 H 30 H 97 10/23/24 04:38 37.2 C 120 H 26 H 147/86 H 96 10/23/24 04:33 120 H 147/86 H 10/23/24 04:18 134 H 159/73 H 10/23/24 04:07 37.3 C 134 H 22 159/73 H 10/23/24 03:57 124 H 32 H 94 10/23/24 03:57 124 H 30 H 94 10/23/24 03:56 118 H 141/88 H 10/23/24 02:36 36.8 C 102 H 18 138/78 96 10/23/24 02:05 101 H 26 H 96 10/23/24 01:13 28 H O2 Del Method O2 Flow Rate FiO2 10/23/24 11:29 Nasal Cannula 2 10/23/24 07:42 Nasal Cannula 2 10/23/24 07:34 Nasal Cannula 2 10/23/24 06:25 10/23/24 05:59 10/23/24 05:19 40 10/23/24 04:38 CPAP 10/23/24 04:33 10/23/24 04:18 10/23/24 04:07 CPAP 10/23/24 03:57 21 10/23/24 03:57 BiPAP 21 10/23/24 03:56 10/23/24 02:36 CPAP 10/23/24 02:05 21 10/23/24 01:13 21 PG Care Time/CCT Total # of Minutes Spent Total Time Spent with Patient: Total time spent is greater than 50% in coordination of care (as documented) at patient's floor/unit and/or counseling patient: Coding Level of Care Code None Diagnoses Cirrhosis of liver without ascites, unspecified hepatic cirrhosis type K74.60 Ascites presence: without ascites Hepatic cirrhosis type: unspecified hepatic cirrhosis (1) Cirrhosis Ascites presence: without ascites Hepatic cirrhosis type: unspecified hepatic cirrhosis Qualified Code(s): K74.60 - Unspecified cirrhosis of liver
--- NOTE | 2024-10-23 13:07 | Hospitalist Progress Note ---
Date of Service October 23, 2024 Assessment & Plan (1) Severe sepsis: (2) Acute hypoxic respiratory failure: (3) DKA, type 2: (4) Lactic acidosis: (5) Chronic atrial fibrillation: (6) Supratherapeutic INR: (7) Elevated troponin: Plan Ms. 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 Admitted with severe sepsis with presumed urinary source. Pt with multiple recent admissions: Admitted 09/06-09/11 COPD exac 09/07 RSV. Admitted 09/26-10/08 2/ acute hypoxic resp failure in setting of CHF Exacerbation Suspected Severe sepsis, borderline Septic Shock Lactic acidosis at this time unknown source of sepsis Resp biofire negative Chest XR and chest CT unremarkable Procalcitonin elevated UA suggestive of infection, Urine Cx NGTD Blood Cx x 2 sets from admission currently growing E coli. Pt with worsening leukocytosis on 10/23. Increased work of breathing. Repeat chest XRAY noting Given complicated picture with worsening leukocytosis, repeat blood cultures ordered received broad spectrum IV antibiotics with Vanco/Cefepime--transitioned to Ceftriaxone before transitioning to Zosyn once more on 10/23 for additional anaerobic coverage with increased work of breathing. ?aspiration Infectious Disease consulted, appreciate recs Palliative Care consulted, appreciate recs Continue to monitor Acute hypoxic respiratory failure Possible interstitial Edema Noted on repeat chest XRAY overnight on 10/23 Received IV Lasix 40mg on 10/23 Monitor Is and Os Pulmonology consulted, appreciate recs DKA uncontrolled T2DM insulin dependent on insulin pump Diabetic polyneuropathy ABG pH normal, but pt with anion gap, low bicarb, hyperglycemic Insulin gtt protocol initiated in ED serial labs, accuchecks last a1c 12.2 in September glycemic pharmacy consult Hypermagnesemia Hyperkalemia Slight elevation, continue to monitor Hypophosphatemia replete as needed Chronic atrial fibrillation Supratherapeutic INR CAD hx of torsades de pointes hold warfarin, no evidence of bleeding Follow INR and resume as able COPD does not appear in overt exacerbation duonebs scheduled Cirrhosis Noted on CT abd/pelvis US abdomen ordered on 10/23 with concern for volume overload GI consulted, appreciate recs Diet: DMII, low potassium DVT ppx: Supratherapeutic INR, warfarin on hold, follow INR Dispo: PT/OT for further recs once medically stable Admission and Anticipated Discharge Date Admission Date: October 21, 2024 Subjective Pt was seen in the AM with her at bedside Overnight started having trouble breathing once more Review of Systems Review of Systems: All systems reviewed & are unremarkable except as noted in Subjective Physical Exam Physical Exam: General: Alert, orientedx2. HEENT: NC/AT CV: RRR Resp: Breath sounds clear bilaterally, no increased effort of breathing Abdomen: Soft, nontender Extremities: No edema in lower extremities bilaterally. Results & Data Results & Data Vital Signs (Past 12 Hours) Vital Signs Temp Pulse Pulse Resp BP BP Pulse Ox 10/23/24 12:30 10/23/24 11:29 37.2 C 104 H 19 96/54 L 96 10/23/24 07:42 37.1 C 108 H 20 114/58 L 96 10/23/24 07:34 104 H 20 96 10/23/24 06:25 100 H 112/69 10/23/24 05:59 106 H 112/64 10/23/24 05:19 130 H 30 H 97 10/23/24 04:38 37.2 C 120 H 26 H 147/86 H 96 10/23/24 04:33 120 H 147/86 H 10/23/24 04:18 134 H 159/73 H 10/23/24 04:07 37.3 C 134 H 22 159/73 H 10/23/24 03:57 124 H 32 H 94 10/23/24 03:57 124 H 30 H 94 10/23/24 03:56 118 H 141/88 H 10/23/24 02:36 36.8 C 102 H 18 138/78 96 10/23/24 02:05 101 H 26 H 96 10/23/24 01:13 28 H O2 Del Method O2 Flow Rate FiO2 10/23/24 12:30 Nasal Cannula 2 10/23/24 11:29 Nasal Cannula 2 10/23/24 07:42 Nasal Cannula 2 10/23/24 07:34 Nasal Cannula 2 10/23/24 06:25 10/23/24 05:59 10/23/24 05:19 40 10/23/24 04:38 CPAP 10/23/24 04:33 10/23/24 04:18 10/23/24 04:07 CPAP 10/23/24 03:57 21 10/23/24 03:57 BiPAP 21 10/23/24 03:56 10/23/24 02:36 CPAP 10/23/24 02:05 21 10/23/24 01:13 21
[2024-10-23] MEDS: PIPERACILLIN/TAZOBACTAM 4.5 GM/100 ML BAG IV SCH (13:48)
--- NOTE | 2024-10-23 14:52 | Pharmacy Report ---
Pharmacy Glycemic Short Note 2 - Date of Service October 23, 2024 - Glycemic Short BSG Results (Last 24 hours): 10/22/24 10/22/24 10/22/24 16:22 20:06 20:07 Glucose POC Glucose 258 H 370 H* 426 H* 10/22/24 10/23/24 10/23/24 20:44 00:18 04:05 Glucose 378 H* 243 H POC Glucose 328 H* 10/23/24 10/23/24 10/23/24 04:20 07:39 11:28 Glucose POC Glucose 239 H 217 H 255 H OUTPATIENT ANTIDIABETIC REGIMEN: * A1c 12.2% 09/06/24 * Metformin 1000mg BID * Ozempic 2mg weekly (Sundays) * Aspart/Novolog via [employer]onic [id number] insulin pump * Basal: * 3425-3116: 8 units/hr * 4871-8180: 8 units/hr * 5163-9864: 8.9 units/hr * Total: 202.8 units Bolus: ISF: 10 ICR: 5 but uses preset dosing of 25 units with breakfast, 25 + 20 units with lunch, 25 + 15 units with supper BG Target: 100-140 Estimated TDD: ~325-350 units Actual TDD: 210.475 units Basal: 155.6 units (74%) Bolus: 54.8 units (26%) ASSESSMENT: 10/23/24: * Blood sugars elevated post insulin gtt transition yesterday and into today * Will allow for slightly increased basal insulin today and will tighten carb ratio * Plan is to transition back to insulin pump prior to discharge 10/22/24: * Patient admitted with hyperglycemia requiring insulin infusion and E. coli bacteremia. * AG closed this morning. Patient was discussed on multidisciplinary rounds and the decision was made to attempt a drip transition, despite high insulin infusion rate (14 units/hr). Patient was given a once time dose of lantus and the infusion as successfully turned off after 3 hours of overlap at 3pm. Patient was also ordered a diet with lunch. * Lantus scale ordered for this evening. Patient previously has required large doses of insulin and given high rate of insulin infusion, patient may experience some hyperglycemia this evening. Will monitor BSGs off of the drip and adjust basal/bolus dosing accordingly. PLAN FOR INPATIENT GLYCEMIC CONTROL: * Hold outpatient oral diabetes medications * Basal insulin * Lantus 80 units SC daily * Lantus 0-10 units SC HS (140 mg/dL threshold) * Bolus insulin * NovoLog per scale ACHS or Q6hrs while NPO * Goal Range: Low 110 mg/dL - High 140 mg/dL * Correction Factor: 15 mg/dL/unit * Nutritional / Prandial insulin per carb ratio of 1 unit per 3 grams CHO consumed
--- NOTE | 2024-10-23 15:57 | Palliative Care Consultation ---
Date of Consultation October 23, 2024 Assessment & Plan (1) Dyspnea and respiratory abnormalities: 4+ liters positive diurese as hemodynamics allow Intake & Output 10/21/24 10/22/24 10/23/24 10/24/24 06:59 06:59 06:59 06:59 Intake Total 5460.517 / 5460.517 1911.593 / 1911.593 934 / 934 Output Total 1345 / 1345 1550 / 1550 2400 / 2400 Balance 4115.517 / 4115.517 361.593 / 361.593 -1466 / -1466 Weight 95.9 kg 95.9 kg (2) Anxiety: Ativan 0.25mg IV q8h prn, Hold for somnolence or RR less than 14, SBP<110 ; please document RR with each dose administration. (3) Weakness generalized: (4) Advanced care planning/counseling discussion: A 45min face to face ACP was held at bedside with pt, there was no other family present. We reviewed her health issues to date and the recent back to back admissions (3 admits in 6 weeks) all beginning with AECOPD d/t RSV. She doesnt want any change other than staying on current course to see how much better she can get. She believes this is all fall out from her early Sep admission for rsv and feels she can get better. She admitted to anxiety and was in agreement for a trial of low dose ativan. We agreed I would check in on her every few days and to let me now if shes starting to feel worse. (5) Palliative care by specialist: Introduced Palliative Medicine and explained our role in patient's care. Patient and/or family were receptive to palliative services for goals of care discussions. Reviewed we are different from hospice, a home health nurse visiting service. Pt provided contact information Advised about OP Pall med clinic and offered follow up She was appreciative of this information and advised if she does not recover the way she expects to, she would like more follow up Plan As above Thank you for allowing us to participate in the ongoing care of this patient. Please page with any additional concerns. Alexandro Jasmine DNP Director, Palliative Medicine History of Present Illness Reason for Consultation: "fre admission, [facility]" Attending Physician: Alba Wyatt MD History of Present Illness Graciela is a 74yo female with recurring resp failure admissions, this is her 3rd admission in 6 weeks, initial admission 09/11/24 for AECOPD d/t RSV, +HF She is heavily relying on BiPAP C/o dyspnea and has a low threshold to seek ER for any SOB Admits to anxiety denies chest pain/n/v/d/c Appetite ok Gen weakness helps care for her but she is alone at time of this visit, no family present Allergies Allergy/AdvReac Type Severity Reaction Status Date / Time alendronate sodium Allergy Severe DIFFICULTY Verified 10/21/24 15:12 BREATHING/BURNING SENSATION esomeprazole Allergy Intermediate Hives Verified 10/21/24 15:12 Home Medications Medication Instructions Recorded Confirmed Type albuterol sulfate 90 mcg/actuation 2 puff inhalation QID PRN 01/12/20 10/21/24 History aerosol inhaler (Ventolin HFA) Shortness Of Breath Or Wheezing fluticasone propionate 50 2 spray intranasal QAM 01/12/20 10/21/24 History mcg/actuation nasal spray,suspension (Flonase Allergy Relief) metformin 1,000 mg tablet 1,000 mg PO BIDM 01/12/20 10/21/24 History nitroglycerin 0.3 mg sublingual 0.3 mg sublingual .PRN/UD PRN 01/12/20 10/21/24 History tablet (Nitrostat) Chest Pain warfarin 5 mg tablet 5 mg PO MOWEFRSA@1600 01/12/20 10/21/24 History cholecalciferol (vitamin D3) 25 1,000 unit PO QAM #30 caps 01/19/20 10/21/24 Rx mcg (1,000 unit) capsule multivitamin (Daily-Moiz tablet) 1 tab PO QAM #30 tabs 01/19/20 10/21/24 Rx cyanocobalamin (vitamin B-12) 1,000 mcg sublingual DAILY 09/21/22 10/21/24 History 1,000 mcg sublingual tablet aspirin 81 mg tablet,delayed 81 mg PO QAM 11/15/23 10/21/24 History release insulin aspart U-100 100 unit/mL See Rx Instructions .Route .COMPLEX 11/15/23 10/21/24 History subcutaneous solution (Novolog U-100 Insulin aspart) isosorbide mononitrate 60 mg 60 mg PO QAM 11/15/23 10/21/24 History tablet,extended release 24 hr rosuvastatin 20 mg tablet 20 mg PO QAM 11/15/23 10/21/24 History potassium chloride 20 mEq 20 meq PO 3XWK #30 tabs 11/17/23 10/21/24 Rx tablet,extended release famotidine 40 mg tablet 40 mg PO DAILY 09/05/24 10/21/24 History furosemide 20 mg tablet 20 mg PO QAM #30 tabs 10/08/24 10/21/24 Rx metoprolol succinate 25 mg 12.5 mg (1/2 x 25 mg) PO QAM #15 10/08/24 10/21/24 Rx tablet,extended release 24 hr tabs warfarin 5 mg tablet 10 mg PO SUTUTH@1600 10/21/24 10/21/24 History Patient History Medical History Benign neoplasm of colon Osteoarthritis History of DVT (deep vein thrombosis) "RLE x 2 in " 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) "Abnormal left breast mammogram 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 Estrogen receptor positive and progesterone receptor positive Status post lumpectomy with sentinel lymph node biopsy stage [id number] 04/07 Status post completion of radiation therapy 07/21/2015 received 6640 cGy" On 07/25/15 17:54 Jayleen Bates wrote "Abnormal left breast mammogram 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 Estrogen receptor positive and progesterone receptor positive Status post lumpectomy with sentinel lymph node biopsy stage [id number] 04/07/2015 Status post completion of radiation therapy 07/21/2015 received 6640 cGy" On 07/25/15 17:49 Jayleen Bates wrote "Abnormal left breast mammogram 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 Estrogen receptor positive and progesterone receptor positive Status post lumpectomy with sentinel lymph node biopsy stage [id number] 04/07/2015" Surgical History H/O partial mastectomy "left breast 04/2015 with lymph node biopsy" H/O arthroscopic knee surgery H/O colonoscopy History of carpal tunnel surgery S/P cervical spinal fusion S/P dilation and curettage H/O vein stripping Family History Other Breast cancer Diabetes Heart disease Social History Smoking Status: Former smoker Tobacco Type: Cigarettes Second Hand Exposure: No; Do You Dip or Chew Tobacco: No; Hx Alcohol Use: No Hx Substance Use: No Preferred Language: Japanese Communication Ability: Effective Dining Services Director Required: No Beliefs That Will Affect Care: None Current Living Situation: Family Current Living Situation Comment: lives at home with and step-son Other Information That Helps Us Care for You: No Feels Safe at Home: Yes Safety Concerns: Feels Safe At This Time Assistive Devices: Nebulizer, Walker and Other Review of Systems Review of Systems: All systems reviewed & are unremarkable except as noted in Subjective Physical Exam Physical Exam: Mild resp acute distress, on BiPAP Bitemp wasting/mild PERRLA, [employer] effort, +BiPAP, diminished bilat, no overt wheezing S1S2, no gross JVD Abd BS+, +soft, NTP BLE trace edema, pulses intact AAOx3 Mild anxiety [facility] Neg Skin: no rashes, warm and dry Lymphatic: no cervical or axillary lymphadenopathy Results & Data Vital Signs (Past 12 Hours) Vital Signs Temp Pulse Pulse Resp BP BP Pulse Ox 10/23/24 15:22 37.2 C 92 H 20 102/57 L 96 10/23/24 14:37 100 10/23/24 13:37 100 H 30 H 98 10/23/24 13:37 100 H 29 H 98 10/23/24 12:30 10/23/24 11:29 37.2 C 104 H 19 96/54 L 96 10/23/24 07:42 37.1 C 108 H 20 114/58 L 96 10/23/24 07:34 104 H 20 96 10/23/24 06:25 100 H 112/69 10/23/24 05:59 106 H 112/64 10/23/24 05:19 130 H 30 H 97 10/23/24 04:38 37.2 C 120 H 26 H 147/86 H 96 10/23/24 04:33 120 H 147/86 H 10/23/24 04:18 134 H 159/73 H 10/23/24 04:07 37.3 C 134 H 22 159/73 H 10/23/24 03:57 124 H 32 H 94 10/23/24 03:57 124 H 30 H 94 10/23/24 03:56 118 H 141/88 H O2 Del Method O2 Flow Rate FiO2 10/23/24 15:22 BiPAP 10/23/24 14:37 10/23/24 13:37 30 10/23/24 13:37 BiPAP 30 10/23/24 12:30 Nasal Cannula 2 10/23/24 11:29 Nasal Cannula 2 10/23/24 07:42 Nasal Cannula 2 10/23/24 07:34 Nasal Cannula 2 10/23/24 06:25 10/23/24 05:59 10/23/24 05:19 40 10/23/24 04:38 CPAP 10/23/24 04:33 10/23/24 04:18 10/23/24 04:07 CPAP 10/23/24 03:57 21 10/23/24 03:57 BiPAP 21 10/23/24 03:56 Laboratory Results 10/23/24 10/23/24 10/23/24 Range/Units 20:01 16:16 14:26 WBC (4.8-10.8) K/ul RBC (4.20-5.40) M/uL Hgb (12.0-16.0) g/dl POC Hgb (12.0-16.0) g/dl Hct (37.0-47.0) % POC Hct (37-47) % MCV (80.0-100.0) fL MCH (25.0-34.0) pg MCHC (32.0-36.0) g/dL RDW Std Deviation (36.4-46.3) fL RDW Coeff of Katrin (11.5-14.5) % Plt Count (130-400) K/uL MPV (9.4-12.4) fL Immature Gran % (Auto) % Neut % (Auto) % Lymph % (Auto) % Norman % (Auto) % Eos % (Auto) % Baso % (Auto) % Neut # (Auto) (1.40-6.50) K/uL Lymph # (Auto) (1.20-3.40) K/uL Norman # (Auto) (0.11-0.59) K/uL Eos # (Auto) (0.00-0.50) K/uL Baso # (Auto) (0.00-0.20) K/uL Immature Gran # (Auto) (0.01-0.20) K/uL Toxic Granulation Polychromasia Ovalocytes ESR (0-30) mm/hr PT (9.0-12.0) Seconds INR (0.9-1.1) APTT (21-31) Seconds PTT Ratio POC pH (7.35-7.45) POC pCO2 (35-46) mmHg POC pO2 (80-95) mmHg POC HCO3 (19-24) meño/L POC Base Excess (-9-1.8) meño/L POC ABG O2 Sat (90-95) % VBG pH (7.36-7.41) VBG pCO2 (38-50) mmHg VBG pO2 mmHg VBG HCO3 mmol/L VBG O2 Saturation % VBG Base Excess mEq/L POC Sodium (135-144) mmol/L Sodium (136-145) mmol/L POC Potassium (3.3-5.0) mmol/L Potassium (3.5-5.1) mmol/L POC Chloride (101-112) mmol/L Chloride (98-107) mmol/L Carbon Dioxide (21-32) mmol/L POC Total CO2 (24-31) mmol/L Anion Gap (3-11) POC Anion Gap (16-25) mmol/L POC BUN (7-18) mg/dl BUN (6-23) mg/dl Creatinine (0.6-1.2) mg/dl POC Creatinine (0.6-1.3) mg/dl Est Cr Clr Drug Dosing ml/min eGFR BUN/Creatinine Ratio (10-20) Glucose (70-99(Fasting)) mg/dl POC Glucose 211 H 220 H (70-99) mg/dl POC Glucose (other) (70-99) mg/dl Osmolality (280-300) mOsm/kg Lactate (0.4-2.0) mmol/L Calcium (8.6-10.3) mg/dl POC Ioniz Calcium Lorena (1.12-1.32) mmol/l Phosphorus (2.5-4.9) mg/dl Magnesium (1.7-2.4) mg/dl Ferritin (8-388) ng/ml Total Bilirubin (0.2-1.0) mg/dl Direct Bilirubin (0-0.2) mg/dl AST (13-39) U/L ALT (7-52) U/L Alkaline Phosphatase (34-104) U/L Total Creatine Kinase (26-192) U/L Troponin I High Sens (0-14) pg/ml C-Reactive Protein (0-0.5) mg/dl B-Natriuretic Peptide 1090 H (0-100) pg/ml Total Protein (6.0-8.3) gm/dl Albumin (3.4-5.0) gm/dl Procalcitonin (0-0.5) ng/ml Urine Color Urine Appearance (Clear) Urine pH (4.5-7.5) Ur Specific Jefferson (1.000-1.030) Urine Protein (Negative) Urine Glucose (UA) (Negative) Urine Ketones (Negative) Urine Blood (Negative) Urine Nitrite (Negative) Urine Bilirubin (Negative) Urine Urobilinogen (Negative) Ur Leukocyte Esterase (Negative) Urine WBC (Auto) (0-5) /hpf Urine RBC (Auto) (0-2) /hpf U Hyaline Cast (Auto) (0-2) /lpf U Epithel Cells (Auto) (0-2) /hpf Urine Bacteria (Auto) (None Seen) Hyaline Casts (None Presnt) /lpf Urine Osmolality (500-800) mOsm/kg Nasal Screen MRSA (PCR) (Negative) Adenovirus (PCR) (NotDetected) B. pertussis DNA (PCR) (NotDetected) B.parapertussis DNA PCR (NotDetected) C. pneumoniae DNA (PCR) (NotDetected) Coronavirus OC43 (PCR) (NotDetected) Coronavirus HKU1 (PCR) (NotDetected) Coronavirus 229E (PCR) (NotDetected) SARS-CoV-2 (PCR) (NotDetected) Coronavirus NL63 (PCR) (NotDetected) Enterobacterales (PCR) (NotDetected) E. coli (PCR) (NotDetected) Hep Bs Antigen (Negative) Hep Bs Antibody Hep Bs Antibody, Quant (>or=10mIU/mL Immune) mIU/mL Hepatitis C Antibody (Negative) Human Metapneumovir PCR (NotDetected) Influenza Type A (PCR) (NotDetected) Influenza Type B (PCR) (NotDetected) M. pneumoniae (PCR) (NotDetected) Parainfluenza 1 (PCR) (NotDetected) Parainfluenza 2 (PCR) (NotDetected) Parainfluenza 3 (PCR) (NotDetected) Parainfluenza 4 (PCR) (NotDetected) RSV (PCR) (NotDetected) Entero/Rhino (PCR) (NotDetected) mcr-1 Colistin Res Gene PCR (NotDetected) blaIMP Car res Gene PCR (NotDetected) KPC-Carbap Res Gene PCR (NotDetected) blaNDM Car Res Gene PCR (NotDetected) OXA-48 Carbapenem Resis Gene (PCR) (NotDetected) blaVIM Car Res Gene PCR (NotDetected) CTX-M Gene Resistance (PCR) (NotDetected) Bld Cult ID Panel PCR (NotDetected) 10/23/24 10/23/24 10/23/24 Range/Units 11:28 09:12 07:39 WBC (4.8-10.8) K/ul RBC (4.20-5.40) M/uL Hgb (12.0-16.0) g/dl POC Hgb (12.0-16.0) g/dl Hct (37.0-47.0) % POC Hct (37-47) % MCV (80.0-100.0) fL MCH (25.0-34.0) pg MCHC (32.0-36.0) g/dL RDW Std Deviation (36.4-46.3) fL RDW Coeff of Katrin (11.5-14.5) % Plt Count (130-400) K/uL MPV (9.4-12.4) fL Immature Gran % (Auto) % Neut % (Auto) % Lymph % (Auto) % Norman % (Auto) % Eos % (Auto) % Baso % (Auto) % Neut # (Auto) (1.40-6.50) K/uL Lymph # (Auto) (1.20-3.40) K/uL Norman # (Auto) (0.11-0.59) K/uL Eos # (Auto) (0.00-0.50) K/uL Baso # (Auto) (0.00-0.20) K/uL Immature Gran # (Auto) (0.01-0.20) K/uL Toxic Granulation Polychromasia Ovalocytes ESR (0-30) mm/hr PT (9.0-12.0) Seconds INR (0.9-1.1) APTT (21-31) Seconds PTT Ratio POC pH (7.35-7.45) POC pCO2 (35-46) mmHg POC pO2 (80-95) mmHg POC HCO3 (19-24) meño/L POC Base Excess (-9-1.8) meño/L POC ABG O2 Sat (90-95) % VBG pH (7.36-7.41) VBG pCO2 (38-50) mmHg VBG pO2 mmHg VBG HCO3 mmol/L VBG O2 Saturation % VBG Base Excess mEq/L POC Sodium (135-144) mmol/L Sodium (136-145) mmol/L POC Potassium (3.3-5.0) mmol/L Potassium (3.5-5.1) mmol/L POC Chloride (101-112) mmol/L Chloride (98-107) mmol/L Carbon Dioxide (21-32) mmol/L POC Total CO2 (24-31) mmol/L Anion Gap (3-11) POC Anion Gap (16-25) mmol/L POC BUN (7-18) mg/dl BUN (6-23) mg/dl Creatinine (0.6-1.2) mg/dl POC Creatinine (0.6-1.3) mg/dl Est Cr Clr Drug Dosing ml/min eGFR BUN/Creatinine Ratio (10-20) Glucose (70-99(Fasting)) mg/dl POC Glucose 255 H 217 H (70-99) mg/dl POC Glucose (other) (70-99) mg/dl Osmolality (280-300) mOsm/kg Lactate (0.4-2.0) mmol/L Calcium (8.6-10.3) mg/dl POC Ioniz Calcium Lorena (1.12-1.32) mmol/l Phosphorus 2.0 L (2.5-4.9) mg/dl Magnesium (1.7-2.4) mg/dl Ferritin 89.1 (8-388) ng/ml Total Bilirubin (0.2-1.0) mg/dl Direct Bilirubin (0-0.2) mg/dl AST (13-39) U/L ALT (7-52) U/L Alkaline Phosphatase (34-104) U/L Total Creatine Kinase (26-192) U/L Troponin I High Sens (0-14) pg/ml C-Reactive Protein (0-0.5) mg/dl B-Natriuretic Peptide (0-100) pg/ml Total Protein (6.0-8.3) gm/dl Albumin (3.4-5.0) gm/dl Procalcitonin (0-0.5) ng/ml Urine Color Urine Appearance (Clear) Urine pH (4.5-7.5) Ur Specific Jefferson (1.000-1.030) Urine Protein (Negative) Urine Glucose (UA) (Negative) Urine Ketones (Negative) Urine Blood (Negative) Urine Nitrite (Negative) Urine Bilirubin (Negative) Urine Urobilinogen (Negative) Ur Leukocyte Esterase (Negative) Urine WBC (Auto) (0-5) /hpf Urine RBC (Auto) (0-2) /hpf U Hyaline Cast (Auto) (0-2) /lpf U Epithel Cells (Auto) (0-2) /hpf Urine Bacteria (Auto) (None Seen) Hyaline Casts (None Presnt) /lpf Urine Osmolality (500-800) mOsm/kg Nasal Screen MRSA (PCR) (Negative) Adenovirus (PCR) (NotDetected) B. pertussis DNA (PCR) (NotDetected) B.parapertussis DNA PCR (NotDetected) C. pneumoniae DNA (PCR) (NotDetected) Coronavirus OC43 (PCR) (NotDetected) Coronavirus HKU1 (PCR) (NotDetected) Coronavirus 229E (PCR) (NotDetected) SARS-CoV-2 (PCR) (NotDetected) Coronavirus NL63 (PCR) (NotDetected) Enterobacterales (PCR) (NotDetected) E. coli (PCR) (NotDetected) Hep Bs Antigen (Negative) Hep Bs Antibody Hep Bs Antibody, Quant (>or=10mIU/mL Immune) mIU/mL Hepatitis C Antibody (Negative) Human Metapneumovir PCR (NotDetected) Influenza Type A (PCR) (NotDetected) Influenza Type B (PCR) (NotDetected) M. pneumoniae (PCR) (NotDetected) Parainfluenza 1 (PCR) (NotDetected) Parainfluenza 2 (PCR) (NotDetected) Parainfluenza 3 (PCR) (NotDetected) Parainfluenza 4 (PCR) (NotDetected) RSV (PCR) (NotDetected) Entero/Rhino (PCR) (NotDetected) mcr-1 Colistin Res Gene PCR (NotDetected) blaIMP Car res Gene PCR (NotDetected) KPC-Carbap Res Gene PCR (NotDetected) blaNDM Car Res Gene PCR (NotDetected) OXA-48 Carbapenem Resis Gene (PCR) (NotDetected) blaVIM Car Res Gene PCR (NotDetected) CTX-M Gene Resistance (PCR) (NotDetected) Bld Cult ID Panel PCR (NotDetected) 10/23/24 10/23/24 10/23/24 Range/Units 05:30 05:29 04:20 WBC (4.8-10.8) K/ul RBC (4.20-5.40) M/uL Hgb (12.0-16.0) g/dl POC Hgb (12.0-16.0) g/dl Hct (37.0-47.0) % POC Hct (37-47) % MCV (80.0-100.0) fL MCH (25.0-34.0) pg MCHC (32.0-36.0) g/dL RDW Std Deviation (36.4-46.3) fL RDW Coeff of Katrin (11.5-14.5) % Plt Count (130-400) K/uL MPV (9.4-12.4) fL Immature Gran % (Auto) % Neut % (Auto) % Lymph % (Auto) % Norman % (Auto) % Eos % (Auto) % Baso % (Auto) % Neut # (Auto) (1.40-6.50) K/uL Lymph # (Auto) (1.20-3.40) K/uL Norman # (Auto) (0.11-0.59) K/uL Eos # (Auto) (0.00-0.50) K/uL Baso # (Auto) (0.00-0.20) K/uL Immature Gran # (Auto) (0.01-0.20) K/uL Toxic Granulation Polychromasia Ovalocytes ESR (0-30) mm/hr PT (9.0-12.0) Seconds INR (0.9-1.1) APTT (21-31) Seconds PTT Ratio POC pH (7.35-7.45) POC pCO2 (35-46) mmHg POC pO2 (80-95) mmHg POC HCO3 (19-24) meño/L POC Base Excess (-9-1.8) meño/L POC ABG O2 Sat (90-95) % VBG pH 7.38 (7.36-7.41) VBG pCO2 40 (38-50) mmHg VBG pO2 30 mmHg VBG HCO3 24 mmol/L VBG O2 Saturation < 60.0 % VBG Base Excess -1.3 mEq/L POC Sodium (135-144) mmol/L Sodium (136-145) mmol/L POC Potassium (3.3-5.0) mmol/L Potassium (3.5-5.1) mmol/L POC Chloride (101-112) mmol/L Chloride (98-107) mmol/L Carbon Dioxide (21-32) mmol/L POC Total CO2 (24-31) mmol/L Anion Gap (3-11) POC Anion Gap (16-25) mmol/L POC BUN (7-18) mg/dl BUN (6-23) mg/dl Creatinine (0.6-1.2) mg/dl POC Creatinine (0.6-1.3) mg/dl Est Cr Clr Drug Dosing ml/min eGFR BUN/Creatinine Ratio (10-20) Glucose (70-99(Fasting)) mg/dl POC Glucose 239 H (70-99) mg/dl POC Glucose (other) (70-99) mg/dl Osmolality (280-300) mOsm/kg Lactate (0.4-2.0) mmol/L Calcium (8.6-10.3) mg/dl POC Ioniz Calcium [place]orena (1.12-1.32) mmol/l Phosphorus (2.5-4.9) mg/dl Magnesium (1.7-2.4) mg/dl Ferritin (8-388) ng/ml Total Bilirubin (0.2-1.0) mg/dl Direct Bilirubin (0-0.2) mg/dl AST (13-39) U/L ALT (7-52) U/L Alkaline Phosphatase (34-104) U/L Total Creatine Kinase (26-192) U/L Troponin I High Sens (0-14) pg/ml C-Reactive Protein (0-0.5) mg/dl B-Natriuretic Peptide (0-100) pg/ml Total Protein (6.0-8.3) gm/dl Albumin (3.4-5.0) gm/dl Procalcitonin (0-0.5) ng/ml Urine Color Urine Appearance (Clear) Urine pH (4.5-7.5) Ur Specific Jefferson (1.000-1.030) Urine Protein (Negative) Urine Glucose (UA) (Negative) Urine Ketones (Negative) Urine Blood (Negative) Urine Nitrite (Negative) Urine Bilirubin (Negative) Urine Urobilinogen (Negative) Ur Leukocyte Esterase (Negative) Urine WBC (Auto) (0-5) /hpf Urine RBC (Auto) (0-2) /hpf U Hyaline Cast (Auto) (0-2) /lpf U Epithel Cells (Auto) (0-2) /hpf Urine Bacteria (Auto) (None Seen) Hyaline Casts (None Presnt) /lpf Urine Osmolality (500-800) mOsm/kg Nasal Screen MRSA (PCR) (Negative) Adenovirus (PCR) (NotDetected) B. pertussis DNA (PCR) (NotDetected) B.parapertussis DNA PCR (NotDetected) C. pneumoniae DNA (PCR) (NotDetected) Coronavirus OC43 (PCR) (NotDetected) Coronavirus HKU1 (PCR) (NotDetected) Coronavirus 229E (PCR) (NotDetected) SARS-CoV-2 (PCR) (NotDetected) Coronavirus NL63 (PCR) (NotDetected) Enterobacterales (PCR) (NotDetected) E. coli (PCR) (NotDetected) Hep Bs Antigen Negative (Negative) Hep Bs Antibody Non-Immune Hep Bs Antibody, Quant < 3.00 (>or=10mIU/mL Immune) mIU/mL Hepatitis C Antibody Negative (Negative) Human Metapneumovir PCR (NotDetected) Influenza Type A (PCR) (NotDetected) Influenza Type B (PCR) (NotDetected) M. pneumoniae (PCR) (NotDetected) Parainfluenza 1 (PCR) (NotDetected) Parainfluenza 2 (PCR) (NotDetected) Parainfluenza 3 (PCR) (NotDetected) Parainfluenza 4 (PCR) (NotDetected) RSV (PCR) (NotDetected) Entero/Rhino (PCR) (NotDetected) mcr-1 Colistin Res Gene PCR (NotDetected) blaIMP Car res Gene PCR (NotDetected) KPC-Carbap Res Gene PCR (NotDetected) blaNDM Car Res Gene PCR (NotDetected) OXA-48 Carbapenem Resis Gene (PCR) (NotDetected) blaVIM Car Res Gene PCR (NotDetected) CTX-M Gene Resistance (PCR) (NotDetected) Bld Cult ID Panel PCR (NotDetected) 10/23/24 10/23/24 10/23/24 Range/Units 04:12 04:05 00:18 WBC 22.56 H (4.8-10.8) K/ul RBC 3.50 L (4.20-5.40) M/uL Hgb 9.8 L (12.0-16.0) g/dl POC Hgb (12.0-16.0) g/dl Hct 30.8 L (37.0-47.0) % POC Hct (37-47) % MCV 88.0 (80.0-100.0) fL MCH 28.0 (25.0-34.0) pg MCHC 31.8 L (32.0-36.0) g/dL RDW Std Deviation 51.0 H (36.4-46.3) fL RDW Coeff of Katrin 15.9 H (11.5-14.5) % Plt Count 232 D (130-400) K/uL MPV 11.0 (9.4-12.4) fL Immature Gran % (Auto) 1.3 % Neut % (Auto) 89.8 % Lymph % (Auto) 4.5 % Norman % (Auto) 4.3 % Eos % (Auto) 0.0 % Baso % (Auto) 0.1 % Neut # (Auto) 20.25 H (1.40-6.50) K/uL Lymph # (Auto) 1.02 L (1.20-3.40) K/uL Norman # (Auto) 0.97 H (0.11-0.59) K/uL Eos # (Auto) 0.00 (0.00-0.50) K/uL Baso # (Auto) 0.03 (0.00-0.20) K/uL Immature Gran # (Auto) 0.29 H (0.01-0.20) K/uL Toxic Granulation 1+ Polychromasia 1+ Ovalocytes 1+ ESR (0-30) mm/hr PT 29.8 H (9.0-12.0) Seconds INR 3.0 H (0.9-1.1) APTT (21-31) Seconds PTT Ratio POC pH (7.35-7.45) POC pCO2 (35-46) mmHg POC pO2 (80-95) mmHg POC HCO3 (19-24) meño/L POC Base Excess (-9-1.8) meño/L POC ABG O2 Sat (90-95) % VBG pH 7.24 L (7.36-7.41) VBG pCO2 52 H (38-50) mmHg VBG pO2 23 mmHg VBG HCO3 22 mmol/L VBG O2 Saturation < 60.0 % VBG Base Excess -5.5 mEq/L POC Sodium (135-144) mmol/L Sodium 134 L (136-145) mmol/L POC Potassium (3.3-5.0) mmol/L Potassium 5.2 H (3.5-5.1) mmol/L POC Chloride (101-112) mmol/L Chloride 104 (98-107) mmol/L Carbon Dioxide 22 (21-32) mmol/L POC Total CO2 (24-31) mmol/L Anion Gap 8 (3-11) POC Anion Gap (16-25) mmol/L POC BUN (7-18) mg/dl BUN 31 H (6-23) mg/dl Creatinine 1.04 (0.6-1.2) mg/dl POC Creatinine (0.6-1.3) mg/dl Est Cr Clr Drug Dosing 53.5 ml/min eGFR 56.05 BUN/Creatinine Ratio 29.8 H (10-20) Glucose 243 H (70-99(Fasting)) mg/dl POC Glucose 328 H* (70-99) mg/dl POC Glucose (other) (70-99) mg/dl Osmolality (280-300) mOsm/kg Lactate (0.4-2.0) mmol/L Calcium 8.9 (8.6-10.3) mg/dl POC Ioniz Calcium [place] (1.12-1.32) mmol/l Phosphorus (2.5-4.9) mg/dl Magnesium 2.5 H (1.7-2.4) mg/dl Ferritin (8-388) ng/ml Total Bilirubin (0.2-1.0) mg/dl Direct Bilirubin (0-0.2) mg/dl AST (13-39) U/L ALT (7-52) U/L Alkaline Phosphatase (34-104) U/L Total Creatine Kinase (26-192) U/L Troponin I High Sens (0-14) pg/ml C-Reactive Protein (0-0.5) mg/dl B-Natriuretic Peptide (0-100) pg/ml Total Protein (6.0-8.3) gm/dl Albumin (3.4-5.0) gm/dl Procalcitonin (0-0.5) ng/ml Urine Color Urine Appearance (Clear) Urine pH (4.5-7.5) Ur Specific [place] (1.000-1.030) Urine Protein (Negative) Urine Glucose (UA) (Negative) Urine Ketones (Negative) Urine Blood (Negative) Urine Nitrite (Negative) Urine Bilirubin (Negative) Urine Urobilinogen (Negative) Ur Leukocyte Esterase (Negative) Urine WBC (Auto) (0-5) /hpf Urine RBC (Auto) (0-2) /hpf U Hyaline Cast (Auto) (0-2) /lpf U Epithel Cells (Auto) (0-2) /hpf Urine Bacteria (Auto) (None Seen) Hyaline Casts (None Presnt) /lpf Urine Osmolality (500-800) mOsm/kg Nasal Screen MRSA (PCR) (Negative) Adenovirus (PCR) (NotDetected) B. pertussis DNA (PCR) (NotDetected) B.parapertussis DNA PCR (NotDetected) C. pneumoniae DNA (PCR) (NotDetected) Coronavirus OC43 (PCR) (NotDetected) Coronavirus HKU1 (PCR) (NotDetected) Coronavirus 229E (PCR) (NotDetected) SARS-CoV-2 (PCR) (NotDetected) Coronavirus NL63 (PCR) (NotDetected) Enterobacterales (PCR) (NotDetected) E. coli (PCR) (NotDetected) Hep Bs Antigen (Negative) Hep Bs Antibody Hep Bs Antibody, Quant (>or=10mIU/mL Immune) mIU/mL Hepatitis C Antibody (Negative) Human Metapneumovir PCR (NotDetected) Influenza Type A (PCR) (NotDetected) Influenza Type B (PCR) (NotDetected) M. pneumoniae (PCR) (NotDetected) Parainfluenza 1 (PCR) (NotDetected) Parainfluenza 2 (PCR) (NotDetected) Parainfluenza 3 (PCR) (NotDetected) Parainfluenza 4 (PCR) (NotDetected) RSV (PCR) (NotDetected) Entero/Rhino (PCR) (NotDetected) mcr-1 Colistin Res Gene PCR (NotDetected) blaIMP Car res Gene PCR (NotDetected) KPC-Carbap Res Gene PCR (NotDetected) blaNDM Car Res Gene PCR (NotDetected) OXA-48 Carbapenem Resis Gene (PCR) (NotDetected) blaVIM Car Res Gene PCR (NotDetected) CTX-M Gene Resistance (PCR) (NotDetected) Bld Cult ID Panel PCR (NotDetected) 10/22/24 10/22/24 10/22/24 Range/Units 20:44 20:07 20:06 WBC (4.8-10.8) K/ul RBC (4.20-5.40) M/uL Hgb (12.0-16.0) g/dl POC Hgb (12.0-16.0) g/dl Hct (37.0-47.0) % POC Hct (37-47) % MCV (80.0-100.0) fL MCH (25.0-34.0) pg MCHC (32.0-36.0) g/dL RDW Std Deviation (36.4-46.3) fL RDW Coeff of Katrin (11.5-14.5) % Plt Count (130-400) K/uL MPV (9.4-12.4) fL Immature Gran % (Auto) % Neut % (Auto) % Lymph % (Auto) % Norman % (Auto) % Eos % (Auto) % Baso % (Auto) % Neut # (Auto) (1.40-6.50) K/uL Lymph # (Auto) (1.20-3.40) K/uL Norman # (Auto) (0.11-0.59) K/uL Eos # (Auto) (0.00-0.50) K/uL Baso # (Auto) (0.00-0.20) K/uL Immature Gran # (Auto) (0.01-0.20) K/uL Toxic Granulation Polychromasia Ovalocytes ESR (0-30) mm/hr PT (9.0-12.0) Seconds INR (0.9-1.1) APTT (21-31) Seconds PTT Ratio POC pH (7.35-7.45) POC pCO2 (35-46) mmHg POC pO2 (80-95) mmHg POC HCO3 (19-24) meño/L POC Base Excess (-9-1.8) meño/L POC ABG O2 Sat (90-95) % VBG pH (7.36-7.41) VBG pCO2 (38-50) mmHg VBG pO2 mmHg VBG HCO3 mmol/L VBG O2 Saturation % VBG Base Excess mEq/L POC Sodium (135-144) mmol/L Sodium (136-145) mmol/L POC Potassium (3.3-5.0) mmol/L Potassium (3.5-5.1) mmol/L POC Chloride (101-112) mmol/L Chloride (98-107) mmol/L Carbon Dioxide (21-32) mmol/L POC Total CO2 (24-31) mmol/L Anion Gap (3-11) POC Anion Gap (16-25) mmol/L POC BUN (7-18) mg/dl BUN (6-23) mg/dl Creatinine (0.6-1.2) mg/dl POC Creatinine (0.6-1.3) mg/dl Est Cr Clr Drug Dosing ml/min eGFR BUN/Creatinine Ratio (10-20) Glucose 378 H* (70-99(Fasting)) mg/dl POC Glucose 426 H* 370 H* (70-99) mg/dl POC Glucose (other) (70-99) mg/dl Osmolality (280-300) mOsm/kg Lactate (0.4-2.0) mmol/L Calcium (8.6-10.3) mg/dl POC Ioniz Calcium [place] (1.12-1.32) mmol/l Phosphorus (2.5-4.9) mg/dl Magnesium (1.7-2.4) mg/dl Ferritin (8-388) ng/ml Total Bilirubin (0.2-1.0) mg/dl Direct Bilirubin (0-0.2) mg/dl AST (13-39) U/L ALT (7-52) U/L Alkaline Phosphatase (34-104) U/L Total Creatine Kinase (26-192) U/L Troponin I High Sens (0-14) pg/ml C-Reactive Protein (0-0.5) mg/dl B-Natriuretic Peptide (0-100) pg/ml Total Protein (6.0-8.3) gm/dl Albumin (3.4-5.0) gm/dl Procalcitonin (0-0.5) ng/ml Urine Color Urine Appearance (Clear) Urine pH (4.5-7.5) Ur Specific Jefferson (1.000-1.030) Urine Protein (Negative) Urine Glucose (UA) (Negative) Urine Ketones (Negative) Urine Blood (Negative) Urine Nitrite (Negative) Urine Bilirubin (Negative) Urine Urobilinogen (Negative) Ur Leukocyte Esterase (Negative) Urine WBC (Auto) (0-5) /hpf Urine RBC (Auto) (0-2) /hpf U Hyaline Cast (Auto) (0-2) /lpf U Epithel Cells (Auto) (0-2) /hpf Urine Bacteria (Auto) (None Seen) Hyaline Casts (None Presnt) /lpf Urine Osmolality (500-800) mOsm/kg Nasal Screen MRSA (PCR) (Negative) Adenovirus (PCR) (NotDetected) B. pertussis DNA (PCR) (NotDetected) B.parapertussis DNA PCR (NotDetected) C. pneumoniae DNA (PCR) (NotDetected) Coronavirus OC43 (PCR) (NotDetected) Coronavirus HKU1 (PCR) (NotDetected) Coronavirus 229E (PCR) (NotDetected) SARS-CoV-2 (PCR) (NotDetected) Coronavirus NL63 (PCR) (NotDetected) Enterobacterales (PCR) (NotDetected) E. coli (PCR) (NotDetected) Hep Bs Antigen (Negative) Hep Bs Antibody Hep Bs Antibody, Quant (>or=10mIU/mL Immune) mIU/mL Hepatitis C Antibody (Negative) Human Metapneumovir PCR (NotDetected) Influenza Type A (PCR) (NotDetected) Influenza Type B (PCR) (NotDetected) M. pneumoniae (PCR) (NotDetected) Parainfluenza 1 (PCR) (NotDetected) Parainfluenza 2 (PCR) (NotDetected) Parainfluenza 3 (PCR) (NotDetected) Parainfluenza 4 (PCR) (NotDetected) RSV (PCR) (NotDetected) Entero/Rhino (PCR) (NotDetected) mcr-1 Colistin Res Gene PCR (NotDetected) blaIMP Car res Gene PCR (NotDetected) KPC-Carbap Res Gene PCR (NotDetected) blaNDM Car Res Gene PCR (NotDetected) OXA-48 Carbapenem Resis Gene (PCR) (NotDetected) blaVIM Car Res Gene PCR (NotDetected) CTX-M Gene Resistance (PCR) (NotDetected) Bld Cult ID Panel PCR (NotDetected) 10/22/24 10/22/24 10/22/24 Range/Units 16:22 14:02 12:49 WBC (4.8-10.8) K/ul RBC (4.20-5.40) M/uL Hgb (12.0-16.0) g/dl POC Hgb (12.0-16.0) g/dl Hct (37.0-47.0) % POC Hct (37-47) % MCV (80.0-100.0) fL MCH (25.0-34.0) pg MCHC (32.0-36.0) g/dL RDW Std Deviation (36.4-46.3) fL RDW Coeff of Katrin (11.5-14.5) % Plt Count (130-400) K/uL MPV (9.4-12.4) fL Immature Gran % (Auto) % Neut % (Auto) % Lymph % (Auto) % Norman % (Auto) % Eos % (Auto) % Baso % (Auto) % Neut # (Auto) (1.40-6.50) K/uL Lymph # (Auto) (1.20-3.40) K/uL Norman # (Auto) (0.11-0.59) K/uL Eos # (Auto) (0.00-0.50) K/uL Baso # (Auto) (0.00-0.20) K/uL Immature Gran # (Auto) (0.01-0.20) K/uL Toxic Granulation Polychromasia Ovalocytes ESR (0-30) mm/hr PT (9.0-12.0) Seconds INR (0.9-1.1) APTT (21-31) Seconds PTT Ratio POC pH (7.35-7.45) POC pCO2 (35-46) mmHg POC pO2 (80-95) mmHg POC HCO3 (19-24) meño/L POC Base Excess (-9-1.8) meño/L POC ABG O2 Sat (90-95) % VBG pH (7.36-7.41) VBG pCO2 (38-50) mmHg VBG pO2 mmHg VBG HCO3 mmol/L VBG O2 Saturation % VBG Base Excess mEq/L POC Sodium (135-144) mmol/L Sodium (136-145) mmol/L POC Potassium (3.3-5.0) mmol/L Potassium (3.5-5.1) mmol/L POC Chloride (101-112) mmol/L Chloride (98-107) mmol/L Carbon Dioxide (21-32) mmol/L POC Total CO2 (24-31) mmol/L Anion Gap (3-11) POC Anion Gap (16-25) mmol/L POC BUN (7-18) mg/dl BUN (6-23) mg/dl Creatinine (0.6-1.2) mg/dl POC Creatinine (0.6-1.3) mg/dl Est Cr Clr Drug Dosing ml/min eGFR BUN/Creatinine Ratio (10-20) Glucose (70-99(Fasting)) mg/dl POC Glucose 258 H 182 H 160 H (70-99) mg/dl POC Glucose (other) (70-99) mg/dl Osmolality (280-300) mOsm/kg Lactate (0.4-2.0) mmol/L Calcium (8.6-10.3) mg/dl POC Ioniz Calcium [place] (1.12-1.32) mmol/l Phosphorus (2.5-4.9) mg/dl Magnesium (1.7-2.4) mg/dl Ferritin (8-388) ng/ml Total Bilirubin (0.2-1.0) mg/dl Direct Bilirubin (0-0.2) mg/dl AST (13-39) U/L ALT (7-52) U/L Alkaline Phosphatase (34-104) U/L Total Creatine Kinase (26-192) U/L Troponin I High Sens (0-14) pg/ml C-Reactive Protein (0-0.5) mg/dl B-Natriuretic Peptide (0-100) pg/ml Total Protein (6.0-8.3) gm/dl Albumin (3.4-5.0) gm/dl Procalcitonin (0-0.5) ng/ml Urine Color Urine Appearance (Clear) Urine pH (4.5-7.5) Ur Specific [place] (1.000-1.030) Urine Protein (Negative) Urine Glucose (UA) (Negative) Urine Ketones (Negative) Urine Blood (Negative) Urine Nitrite (Negative) Urine Bilirubin (Negative) Urine Urobilinogen (Negative) Ur Leukocyte Esterase (Negative) Urine WBC (Auto) (0-5) /hpf Urine RBC (Auto) (0-2) /hpf U Hyaline Cast (Auto) (0-2) /lpf U Epithel Cells (Auto) (0-2) /hpf Urine Bacteria (Auto) (None Seen) Hyaline Casts (None Presnt) /lpf Urine Osmolality (500-800) mOsm/kg Nasal Screen MRSA (PCR) (Negative) Adenovirus (PCR) (NotDetected) B. pertussis DNA (PCR) (NotDetected) B.parapertussis DNA PCR (NotDetected) C. pneumoniae DNA (PCR) (NotDetected) Coronavirus OC43 (PCR) (NotDetected) Coronavirus HKU1 (PCR) (NotDetected) Coronavirus 229E (PCR) (NotDetected) SARS-CoV-2 (PCR) (NotDetected) Coronavirus NL63 (PCR) (NotDetected) Enterobacterales (PCR) (NotDetected) E. coli (PCR) (NotDetected) Hep Bs Antigen (Negative) Hep Bs Antibody Hep Bs Antibody, Quant (>or=10mIU/mL Immune) mIU/mL Hepatitis C Antibody (Negative) Human Metapneumovir PCR (NotDetected) Influenza Type A (PCR) (NotDetected) Influenza Type B (PCR) (NotDetected) M. pneumoniae (PCR) (NotDetected) Parainfluenza 1 (PCR) (NotDetected) Parainfluenza 2 (PCR) (NotDetected) Parainfluenza 3 (PCR) (NotDetected) Parainfluenza 4 (PCR) (NotDetected) RSV (PCR) (NotDetected) Entero/Rhino (PCR) (NotDetected) mcr-1 Colistin Res Gene PCR (NotDetected) blaIMP Car res Gene PCR (NotDetected) KPC-Carbap Res Gene PCR (NotDetected) blaNDM Car Res Gene PCR (NotDetected) OXA-48 Carbapenem Resis Gene (PCR) (NotDetected) blaVIM Car Res Gene PCR (NotDetected) CTX-M Gene Resistance (PCR) (NotDetected) Bld Cult ID Panel PCR (NotDetected) 10/22/24 10/22/24 10/22/24 Range/Units 11:44 11:08 11:04 WBC (4.8-10.8) K/ul RBC (4.20-5.40) M/uL Hgb (12.0-16.0) g/dl POC Hgb (12.0-16.0) g/dl Hct (37.0-47.0) % POC Hct (37-47) % MCV (80.0-100.0) fL MCH (25.0-34.0) pg MCHC (32.0-36.0) g/dL RDW Std Deviation (36.4-46.3) fL RDW Coeff of Katrin (11.5-14.5) % Plt Count (130-400) K/uL MPV (9.4-12.4) fL Immature Gran % (Auto) % Neut % (Auto) % Lymph % (Auto) % Norman % (Auto) % Eos % (Auto) % Baso % (Auto) % Neut # (Auto) (1.40-6.50) K/uL Lymph # (Auto) (1.20-3.40) K/uL Norman # (Auto) (0.11-0.59) K/uL Eos # (Auto) (0.00-0.50) K/uL Baso # (Auto) (0.00-0.20) K/uL Immature Gran # (Auto) (0.01-0.20) K/uL Toxic Granulation Polychromasia Ovalocytes ESR (0-30) mm/hr PT (9.0-12.0) Seconds INR (0.9-1.1) APTT (21-31) Seconds PTT Ratio POC pH (7.35-7.45) POC pCO2 (35-46) mmHg POC pO2 (80-95) mmHg POC HCO3 (19-24) meño/L POC Base Excess (-9-1.8) meño/L POC ABG O2 Sat (90-95) % VBG pH 7.33 L (7.36-7.41) VBG pCO2 (38-50) mmHg VBG pO2 mmHg VBG HCO3 mmol/L VBG O2 Saturation % VBG Base Excess mEq/L POC Sodium (135-144) mmol/L Sodium 134 L (136-145) mmol/L POC Potassium (3.3-5.0) mmol/L Potassium 4.5 (3.5-5.1) mmol/L POC Chloride (101-112) mmol/L Chloride 107 (98-107) mmol/L Carbon Dioxide 23 (21-32) mmol/L POC Total CO2 (24-31) mmol/L Anion Gap 4 (3-11) POC Anion Gap (16-25) mmol/L POC BUN (7-18) mg/dl BUN 25 H (6-23) mg/dl Creatinine 0.82 (0.6-1.2) mg/dl POC Creatinine (0.6-1.3) mg/dl Est Cr Clr Drug Dosing 67.9 ml/min eGFR 74.55 BUN/Creatinine Ratio 30.5 H (10-20) Glucose 123 H (70-99(Fasting)) mg/dl POC Glucose 157 H (70-99) mg/dl POC Glucose (other) (70-99) mg/dl Osmolality (280-300) mOsm/kg Lactate (0.4-2.0) mmol/L Calcium 8.3 L (8.6-10.3) mg/dl POC Ioniz Calcium [place] (1.12-1.32) mmol/l Phosphorus 2.4 L (2.5-4.9) mg/dl Magnesium 2.4 (1.7-2.4) mg/dl Ferritin (8-388) ng/ml Total Bilirubin (0.2-1.0) mg/dl Direct Bilirubin (0-0.2) mg/dl AST (13-39) U/L ALT (7-52) U/L Alkaline Phosphatase (34-104) U/L Total Creatine Kinase (26-192) U/L Troponin I High Sens (0-14) pg/ml C-Reactive Protein (0-0.5) mg/dl B-Natriuretic Peptide (0-100) pg/ml Total Protein (6.0-8.3) gm/dl Albumin (3.4-5.0) gm/dl Procalcitonin (0-0.5) ng/ml Urine Color Urine Appearance (Clear) Urine pH (4.5-7.5) Ur Specific [place] (1.000-1.030) Urine Protein (Negative) Urine Glucose (UA) (Negative) Urine Ketones (Negative) Urine Blood (Negative) Urine Nitrite (Negative) Urine Bilirubin (Negative) Urine Urobilinogen (Negative) Ur Leukocyte Esterase (Negative) Urine WBC (Auto) (0-5) /hpf Urine RBC (Auto) (0-2) /hpf U Hyaline Cast (Auto) (0-2) /lpf U Epithel Cells (Auto) (0-2) /hpf Urine Bacteria (Auto) (None Seen) Hyaline Casts (None Presnt) /lpf Urine Osmolality (500-800) mOsm/kg Nasal Screen MRSA (PCR) (Negative) Adenovirus (PCR) (NotDetected) B. pertussis DNA (PCR) (NotDetected) B.parapertussis DNA PCR (NotDetected) C. pneumoniae DNA (PCR) (NotDetected) Coronavirus OC43 (PCR) (NotDetected) Coronavirus HKU1 (PCR) (NotDetected) Coronavirus 229E (PCR) (NotDetected) SARS-CoV-2 (PCR) (NotDetected) Coronavirus NL63 (PCR) (NotDetected) Enterobacterales (PCR) (NotDetected) E. coli (PCR) (NotDetected) Hep Bs Antigen (Negative) Hep Bs Antibody Hep Bs Antibody, Quant (>or=10mIU/mL Immune) mIU/mL Hepatitis C Antibody (Negative) Human Metapneumovir PCR (NotDetected) Influenza Type A (PCR) (NotDetected) Influenza Type B (PCR) (NotDetected) M. pneumoniae (PCR) (NotDetected) Parainfluenza 1 (PCR) (NotDetected) Parainfluenza 2 (PCR) (NotDetected) Parainfluenza 3 (PCR) (NotDetected) Parainfluenza 4 (PCR) (NotDetected) RSV (PCR) (NotDetected) Entero/Rhino (PCR) (NotDetected) mcr-1 Colistin Res Gene PCR (NotDetected) blaIMP Car res Gene PCR (NotDetected) KPC-Carbap Res Gene PCR (NotDetected) blaNDM Car Res Gene PCR (NotDetected) OXA-48 Carbapenem Resis Gene (PCR) (NotDetected) blaVIM Car Res Gene PCR (NotDetected) CTX-M Gene Resistance (PCR) (NotDetected) Bld Cult ID Panel PCR (NotDetected) 10/22/24 10/22/24 10/22/24 Range/Units 10:48 09:53 08:55 WBC (4.8-10.8) K/ul RBC (4.20-5.40) M/uL Hgb (12.0-16.0) g/dl POC Hgb (12.0-16.0) g/dl Hct (37.0-47.0) % POC Hct (37-47) % MCV (80.0-100.0) fL MCH (25.0-34.0) pg MCHC (32.0-36.0) g/dL RDW Std Deviation (36.4-46.3) fL RDW Coeff of Katrin (11.5-14.5) % Plt Count (130-400) K/uL MPV (9.4-12.4) fL Immature Gran % (Auto) % Neut % (Auto) % Lymph % (Auto) % Norman % (Auto) % Eos % (Auto) % Baso % (Auto) % Neut # (Auto) (1.40-6.50) K/uL Lymph # (Auto) (1.20-3.40) K/uL Norman # (Auto) (0.11-0.59) K/uL Eos # (Auto) (0.00-0.50) K/uL Baso # (Auto) (0.00-0.20) K/uL Immature Gran # (Auto) (0.01-0.20) K/uL Toxic Granulation Polychromasia Ovalocytes ESR (0-30) mm/hr PT (9.0-12.0) Seconds INR (0.9-1.1) APTT (21-31) Seconds PTT Ratio POC pH (7.35-7.45) POC pCO2 (35-46) mmHg POC pO2 (80-95) mmHg POC HCO3 (19-24) meño/L POC Base Excess (-9-1.8) meño/L POC ABG O2 Sat (90-95) % VBG pH (7.36-7.41) VBG pCO2 (38-50) mmHg VBG pO2 mmHg VBG HCO3 mmol/L VBG O2 Saturation % VBG Base Excess mEq/L POC Sodium (135-144) mmol/L Sodium (136-145) mmol/L POC Potassium (3.3-5.0) mmol/L Potassium (3.5-5.1) mmol/L POC Chloride (101-112) mmol/L Chloride (98-107) mmol/L Carbon Dioxide (21-32) mmol/L POC Total CO2 (24-31) mmol/L Anion Gap (3-11) POC Anion Gap (16-25) mmol/L POC BUN (7-18) mg/dl BUN (6-23) mg/dl Creatinine (0.6-1.2) mg/dl POC Creatinine (0.6-1.3) mg/dl Est Cr Clr Drug Dosing ml/min eGFR BUN/Creatinine Ratio (10-20) Glucose (70-99(Fasting)) mg/dl POC Glucose 114 H 137 H 158 H (70-99) mg/dl POC Glucose (other) (70-99) mg/dl Osmolality (280-300) mOsm/kg Lactate (0.4-2.0) mmol/L Calcium (8.6-10.3) mg/dl POC Ioniz Calcium [place] (1.12-1.32) mmol/l Phosphorus (2.5-4.9) mg/dl Magnesium (1.7-2.4) mg/dl Ferritin (8-388) ng/ml Total Bilirubin (0.2-1.0) mg/dl Direct Bilirubin (0-0.2) mg/dl AST (13-39) U/L ALT (7-52) U/L Alkaline Phosphatase (34-104) U/L Total Creatine Kinase (26-192) U/L Troponin I High Sens (0-14) pg/ml C-Reactive Protein (0-0.5) mg/dl B-Natriuretic Peptide (0-100) pg/ml Total Protein (6.0-8.3) gm/dl Albumin (3.4-5.0) gm/dl Procalcitonin (0-0.5) ng/ml Urine Color Urine Appearance (Clear) Urine pH (4.5-7.5) Ur Specific [place] (1.000-1.030) Urine Protein (Negative) Urine Glucose (UA) (Negative) Urine Ketones (Negative) Urine Blood (Negative) Urine Nitrite (Negative) Urine Bilirubin (Negative) Urine Urobilinogen (Negative) Ur Leukocyte Esterase (Negative) Urine WBC (Auto) (0-5) /hpf Urine RBC (Auto) (0-2) /hpf U Hyaline Cast (Auto) (0-2) /lpf U Epithel Cells (Auto) (0-2) /hpf Urine Bacteria (Auto) (None Seen) Hyaline Casts (None Presnt) /lpf Urine Osmolality (500-800) mOsm/kg Nasal Screen MRSA (PCR) (Negative) Adenovirus (PCR) (NotDetected) B. pertussis DNA (PCR) (NotDetected) B.parapertussis DNA PCR (NotDetected) C. pneumoniae DNA (PCR) (NotDetected) Coronavirus OC43 (PCR) (NotDetected) Coronavirus HKU1 (PCR) (NotDetected) Coronavirus 229E (PCR) (NotDetected) SARS-CoV-2 (PCR) (NotDetected) Coronavirus NL63 (PCR) (NotDetected) Enterobacterales (PCR) (NotDetected) E. coli (PCR) (NotDetected) Hep Bs Antigen (Negative) Hep Bs Antibody Hep Bs Antibody, Quant (>or=10mIU/mL Immune) mIU/mL Hepatitis C Antibody (Negative) Human Metapneumovir PCR (NotDetected) Influenza Type A (PCR) (NotDetected) Influenza Type B (PCR) (NotDetected) M. pneumoniae (PCR) (NotDetected) Parainfluenza 1 (PCR) (NotDetected) Parainfluenza 2 (PCR) (NotDetected) Parainfluenza 3 (PCR) (NotDetected) Parainfluenza 4 (PCR) (NotDetected) RSV (PCR) (NotDetected) Entero/Rhino (PCR) (NotDetected) mcr-1 Colistin Res Gene PCR (NotDetected) blaIMP Car res Gene PCR (NotDetected) KPC-Carbap Res Gene PCR (NotDetected) blaNDM Car Res Gene PCR (NotDetected) OXA-48 Carbapenem Resis Gene (PCR) (NotDetected) blaVIM Car Res Gene PCR (NotDetected) CTX-M Gene Resistance (PCR) (NotDetected) Bld Cult ID Panel PCR (NotDetected) 10/22/24 10/22/24 10/22/24 Range/Units 07:42 07:34 07:08 WBC (4.8-10.8) K/ul RBC (4.20-5.40) M/uL Hgb (12.0-16.0) g/dl POC Hgb (12.0-16.0) g/dl Hct (37.0-47.0) % POC Hct (37-47) % MCV (80.0-100.0) fL MCH (25.0-34.0) pg MCHC (32.0-36.0) g/dL RDW Std Deviation (36.4-46.3) fL RDW Coeff of Katrin (11.5-14.5) % Plt Count (130-400) K/uL MPV (9.4-12.4) fL Immature Gran % (Auto) % Neut % (Auto) % Lymph % (Auto) % Norman % (Auto) % Eos % (Auto) % Baso % (Auto) % Neut # (Auto) (1.40-6.50) K/uL Lymph # (Auto) (1.20-3.40) K/uL Norman # (Auto) (0.11-0.59) K/uL Eos # (Auto) (0.00-0.50) K/uL Baso # (Auto) (0.00-0.20) K/uL Immature Gran # (Auto) (0.01-0.20) K/uL Toxic Granulation Polychromasia Ovalocytes ESR (0-30) mm/hr PT (9.0-12.0) Seconds INR (0.9-1.1) APTT (21-31) Seconds PTT Ratio POC pH (7.35-7.45) POC pCO2 (35-46) mmHg POC pO2 (80-95) mmHg POC HCO3 (19-24) meño/L POC Base Excess (-9-1.8) meño/L POC ABG O2 Sat (90-95) % VBG pH 7.36 (7.36-7.41) VBG pCO2 (38-50) mmHg VBG pO2 mmHg VBG HCO3 mmol/L VBG O2 Saturation % VBG Base Excess mEq/L POC Sodium (135-144) mmol/L Sodium 136 (136-145) mmol/L POC Potassium (3.3-5.0) mmol/L Potassium 4.1 (3.5-5.1) mmol/L POC Chloride (101-112) mmol/L Chloride 107 (98-107) mmol/L Carbon Dioxide 22 (21-32) mmol/L POC Total CO2 (24-31) mmol/L Anion Gap 7 (3-11) POC Anion Gap (16-25) mmol/L POC BUN (7-18) mg/dl BUN 25 H (6-23) mg/dl Creatinine 0.87 (0.6-1.2) mg/dl POC Creatinine (0.6-1.3) mg/dl Est Cr Clr Drug Dosing 64.0 ml/min eGFR 69.44 BUN/Creatinine Ratio 28.7 H (10-20) Glucose 186 H (70-99(Fasting)) mg/dl POC Glucose 192 H 220 H (70-99) mg/dl POC Glucose (other) (70-99) mg/dl Osmolality (280-300) mOsm/kg Lactate (0.4-2.0) mmol/L Calcium 8.3 L (8.6-10.3) mg/dl POC Ioniz Calcium [place] (1.12-1.32) mmol/l Phosphorus 2.0 L (2.5-4.9) mg/dl Magnesium 2.3 (1.7-2.4) mg/dl Ferritin (8-388) ng/ml Total Bilirubin (0.2-1.0) mg/dl Direct Bilirubin (0-0.2) mg/dl AST (13-39) U/L ALT (7-52) U/L Alkaline Phosphatase (34-104) U/L Total Creatine Kinase (26-192) U/L Troponin I High Sens (0-14) pg/ml C-Reactive Protein (0-0.5) mg/dl B-Natriuretic Peptide (0-100) pg/ml Total Protein (6.0-8.3) gm/dl Albumin (3.4-5.0) gm/dl Procalcitonin (0-0.5) ng/ml Urine Color Urine Appearance (Clear) Urine pH (4.5-7.5) Ur Specific [place] (1.000-1.030) Urine Protein (Negative) Urine Glucose (UA) (Negative) Urine Ketones (Negative) Urine Blood (Negative) Urine Nitrite (Negative) Urine Bilirubin (Negative) Urine Urobilinogen (Negative) Ur Leukocyte Esterase (Negative) Urine WBC (Auto) (0-5) /hpf Urine RBC (Auto) (0-2) /hpf U Hyaline Cast (Auto) (0-2) /lpf U Epithel Cells (Auto) (0-2) /hpf Urine Bacteria (Auto) (None Seen) Hyaline Casts (None Presnt) /lpf Urine Osmolality (500-800) mOsm/kg Nasal Screen MRSA (PCR) (Negative) Adenovirus (PCR) (NotDetected) B. pertussis DNA (PCR) (NotDetected) B.parapertussis DNA PCR (NotDetected) C. pneumoniae DNA (PCR) (NotDetected) Coronavirus OC43 (PCR) (NotDetected) Coronavirus HKU1 (PCR) (NotDetected) Coronavirus 229E (PCR) (NotDetected) SARS-CoV-2 (PCR) (NotDetected) Coronavirus NL63 (PCR) (NotDetected) Enterobacterales (PCR) (NotDetected) E. coli (PCR) (NotDetected) Hep Bs Antigen (Negative) Hep Bs Antibody Hep Bs Antibody, Quant (>or=10mIU/mL Immune) mIU/mL Hepatitis C Antibody (Negative) Human Metapneumovir PCR (NotDetected) Influenza Type A (PCR) (NotDetected) Influenza Type B (PCR) (NotDetected) M. pneumoniae (PCR) (NotDetected) Parainfluenza 1 (PCR) (NotDetected) Parainfluenza 2 (PCR) (NotDetected) Parainfluenza 3 (PCR) (NotDetected) Parainfluenza 4 (PCR) (NotDetected) RSV (PCR) (NotDetected) Entero/Rhino (PCR) (NotDetected) mcr-1 Colistin Res Gene PCR (NotDetected) blaIMP Car res Gene PCR (NotDetected) KPC-Carbap Res Gene PCR (NotDetected) blaNDM Car Res Gene PCR (NotDetected) OXA-48 Carbapenem Resis Gene (PCR) (NotDetected) blaVIM Car Res Gene PCR (NotDetected) CTX-M Gene Resistance (PCR) (NotDetected) Bld Cult ID Panel PCR (NotDetected) 10/22/24 10/22/24 10/22/24 Range/Units 05:53 04:14 03:55 WBC (4.8-10.8) K/ul RBC (4.20-5.40) M/uL Hgb (12.0-16.0) g/dl POC Hgb (12.0-16.0) g/dl Hct (37.0-47.0) % POC Hct (37-47) % MCV (80.0-100.0) fL MCH (25.0-34.0) pg MCHC (32.0-36.0) g/dL RDW Std Deviation (36.4-46.3) fL RDW Coeff of Katrin (11.5-14.5) % Plt Count (130-400) K/uL MPV (9.4-12.4) fL Immature Gran % (Auto) % Neut % (Auto) % Lymph % (Auto) % Norman % (Auto) % Eos % (Auto) % Baso % (Auto) % Neut # (Auto) (1.40-6.50) K/uL Lymph # (Auto) (1.20-3.40) K/uL Norman # (Auto) (0.11-0.59) K/uL Eos # (Auto) (0.00-0.50) K/uL Baso # (Auto) (0.00-0.20) K/uL Immature Gran # (Auto) (0.01-0.20) K/uL Toxic Granulation Polychromasia Ovalocytes ESR (0-30) mm/hr PT 39.1 H (9.0-12.0) Seconds INR 4.1 H (0.9-1.1) APTT (21-31) Seconds PTT Ratio POC pH (7.35-7.45) POC pCO2 (35-46) mmHg POC pO2 (80-95) mmHg POC HCO3 (19-24) meño/L POC Base Excess (-9-1.8) meño/L POC ABG O2 Sat (90-95) % VBG pH 7.33 L (7.36-7.41) VBG pCO2 (38-50) mmHg VBG pO2 mmHg VBG HCO3 mmol/L VBG O2 Saturation % VBG Base Excess mEq/L POC Sodium (135-144) mmol/L Sodium 135 L (136-145) mmol/L POC Potassium (3.3-5.0) mmol/L Potassium 4.1 (3.5-5.1) mmol/L POC Chloride (101-112) mmol/L Chloride 107 (98-107) mmol/L Carbon Dioxide 20 L (21-32) mmol/L POC Total CO2 (24-31) mmol/L Anion Gap 8 (3-11) POC Anion Gap (16-25) mmol/L POC BUN (7-18) mg/dl BUN 28 H (6-23) mg/dl Creatinine 1.03 (0.6-1.2) mg/dl POC Creatinine (0.6-1.3) mg/dl Est Cr Clr Drug Dosing 53.7 ml/min eGFR 56.70 BUN/Creatinine Ratio 27.2 H (10-20) Glucose 316 H* (70-99(Fasting)) mg/dl POC Glucose 243 H 297 H (70-99) mg/dl POC Glucose (other) (70-99) mg/dl Osmolality (280-300) mOsm/kg Lactate 3.5 H* (0.4-2.0) mmol/L Calcium 8.3 L (8.6-10.3) mg/dl POC Ioniz Calcium [place] (1.12-1.32) mmol/l Phosphorus 2.4 L (2.5-4.9) mg/dl Magnesium 2.3 (1.7-2.4) mg/dl Ferritin (8-388) ng/ml Total Bilirubin (0.2-1.0) mg/dl Direct Bilirubin (0-0.2) mg/dl AST (13-39) U/L ALT (7-52) U/L Alkaline Phosphatase (34-104) U/L Total Creatine Kinase (26-192) U/L Troponin I High Sens (0-14) pg/ml C-Reactive Protein (0-0.5) mg/dl B-Natriuretic Peptide (0-100) pg/ml Total Protein (6.0-8.3) gm/dl Albumin (3.4-5.0) gm/dl Procalcitonin (0-0.5) ng/ml Urine Color Urine Appearance (Clear) Urine pH (4.5-7.5) Ur Specific Jefferson (1.000-1.030) Urine Protein (Negative) Urine Glucose (UA) (Negative) Urine Ketones (Negative) Urine Blood (Negative) Urine Nitrite (Negative) Urine Bilirubin (Negative) Urine Urobilinogen (Negative) Ur Leukocyte Esterase (Negative) Urine WBC (Auto) (0-5) /hpf Urine RBC (Auto) (0-2) /hpf U Hyaline Cast (Auto) (0-2) /lpf U Epithel Cells (Auto) (0-2) /hpf Urine Bacteria (Auto) (None Seen) Hyaline Casts (None Presnt) /lpf Urine Osmolality (500-800) mOsm/kg Nasal Screen MRSA (PCR) (Negative) Adenovirus (PCR) (NotDetected) B. pertussis DNA (PCR) (NotDetected) B.parapertussis DNA PCR (NotDetected) C. pneumoniae DNA (PCR) (NotDetected) Coronavirus OC43 (PCR) (NotDetected) Coronavirus HKU1 (PCR) (NotDetected) Coronavirus 229E (PCR) (NotDetected) SARS-CoV-2 (PCR) (NotDetected) Coronavirus NL63 (PCR) (NotDetected) Enterobacterales (PCR) (NotDetected) E. coli (PCR) (NotDetected) Hep Bs Antigen (Negative) Hep Bs Antibody Hep Bs Antibody, Quant (>or=10mIU/mL Immune) mIU/mL Hepatitis C Antibody (Negative) Human Metapneumovir PCR (NotDetected) Influenza Type A (PCR) (NotDetected) Influenza Type B (PCR) (NotDetected) M. pneumoniae (PCR) (NotDetected) Parainfluenza 1 (PCR) (NotDetected) Parainfluenza 2 (PCR) (NotDetected) Parainfluenza 3 (PCR) (NotDetected) Parainfluenza 4 (PCR) (NotDetected) RSV (PCR) (NotDetected) Entero/Rhino (PCR) (NotDetected) mcr-1 Colistin Res Gene PCR (NotDetected) blaIMP Car res Gene PCR (NotDetected) KPC-Carbap Res Gene PCR (NotDetected) blaNDM Car Res Gene PCR (NotDetected) OXA-48 Carbapenem Resis Gene (PCR) (NotDetected) blaVIM Car Res Gene PCR (NotDetected) CTX-M Gene Resistance (PCR) (NotDetected) Bld Cult ID Panel PCR (NotDetected) 10/22/24 10/22/24 10/22/24 Range/Units 03:07 02:09 01:02 WBC (4.8-10.8) K/ul RBC (4.20-5.40) M/uL Hgb (12.0-16.0) g/dl POC Hgb (12.0-16.0) g/dl Hct (37.0-47.0) % POC Hct (37-47) % MCV (80.0-100.0) fL MCH (25.0-34.0) pg MCHC (32.0-36.0) g/dL RDW Std Deviation (36.4-46.3) fL RDW Coeff of Katrin (11.5-14.5) % Plt Count (130-400) K/uL MPV (9.4-12.4) fL Immature Gran % (Auto) % Neut % (Auto) % Lymph % (Auto) % Norman % (Auto) % Eos % (Auto) % Baso % (Auto) % Neut # (Auto) (1.40-6.50) K/uL Lymph # (Auto) (1.20-3.40) K/uL Norman # (Auto) (0.11-0.59) K/uL Eos # (Auto) (0.00-0.50) K/uL Baso # (Auto) (0.00-0.20) K/uL Immature Gran # (Auto) (0.01-0.20) K/uL Toxic Granulation Polychromasia Ovalocytes ESR (0-30) mm/hr PT (9.0-12.0) Seconds INR (0.9-1.1) APTT (21-31) Seconds PTT Ratio POC pH (7.35-7.45) POC pCO2 (35-46) mmHg POC pO2 (80-95) mmHg POC HCO3 (19-24) meño/L POC Base Excess (-9-1.8) meño/L POC ABG O2 Sat (90-95) % VBG pH (7.36-7.41) VBG pCO2 (38-50) mmHg VBG pO2 mmHg VBG HCO3 mmol/L VBG O2 Saturation % VBG Base Excess mEq/L POC Sodium (135-144) mmol/L Sodium (136-145) mmol/L POC Potassium (3.3-5.0) mmol/L Potassium (3.5-5.1) mmol/L POC Chloride (101-112) mmol/L Chloride (98-107) mmol/L Carbon Dioxide (21-32) mmol/L POC Total CO2 (24-31) mmol/L Anion Gap (3-11) POC Anion Gap (16-25) mmol/L POC BUN (7-18) mg/dl BUN (6-23) mg/dl Creatinine (0.6-1.2) mg/dl POC Creatinine (0.6-1.3) mg/dl Est Cr Clr Drug Dosing ml/min eGFR BUN/Creatinine Ratio (10-20) Glucose (70-99(Fasting)) mg/dl POC Glucose 341 H* 336 H* 359 H* (70-99) mg/dl POC Glucose (other) (70-99) mg/dl Osmolality (280-300) mOsm/kg Lactate (0.4-2.0) mmol/L Calcium (8.6-10.3) mg/dl POC Ioniz Calcium [place] (1.12-1.32) mmol/l Phosphorus (2.5-4.9) mg/dl Magnesium (1.7-2.4) mg/dl Ferritin (8-388) ng/ml Total Bilirubin (0.2-1.0) mg/dl Direct Bilirubin (0-0.2) mg/dl AST (13-39) U/L ALT (7-52) U/L Alkaline Phosphatase (34-104) U/L Total Creatine Kinase (26-192) U/L Troponin I High Sens (0-14) pg/ml C-Reactive Protein (0-0.5) mg/dl B-Natriuretic Peptide (0-100) pg/ml Total Protein (6.0-8.3) gm/dl Albumin (3.4-5.0) gm/dl Procalcitonin (0-0.5) ng/ml Urine Color Urine Appearance (Clear) Urine pH (4.5-7.5) Ur Specific [place] (1.000-1.030) Urine Protein (Negative) Urine Glucose (UA) (Negative) Urine Ketones (Negative) Urine Blood (Negative) Urine Nitrite (Negative) Urine Bilirubin (Negative) Urine Urobilinogen (Negative) Ur Leukocyte Esterase (Negative) Urine WBC (Auto) (0-5) /hpf Urine RBC (Auto) (0-2) /hpf U Hyaline Cast (Auto) (0-2) /lpf U Epithel Cells (Auto) (0-2) /hpf Urine Bacteria (Auto) (None Seen) Hyaline Casts (None Presnt) /lpf Urine Osmolality (500-800) mOsm/kg Nasal Screen MRSA (PCR) (Negative) Adenovirus (PCR) (NotDetected) B. pertussis DNA (PCR) (NotDetected) B.parapertussis DNA PCR (NotDetected) C. pneumoniae DNA (PCR) (NotDetected) Coronavirus OC43 (PCR) (NotDetected) Coronavirus HKU1 (PCR) (NotDetected) Coronavirus 229E (PCR) (NotDetected) SARS-CoV-2 (PCR) (NotDetected) Coronavirus NL63 (PCR) (NotDetected) Enterobacterales (PCR) (NotDetected) E. coli (PCR) (NotDetected) Hep Bs Antigen (Negative) Hep Bs Antibody Hep Bs Antibody, Quant (>or=10mIU/mL Immune) mIU/mL Hepatitis C Antibody (Negative) Human Metapneumovir PCR (NotDetected) Influenza Type A (PCR) (NotDetected) Influenza Type B (PCR) (NotDetected) M. pneumoniae (PCR) (NotDetected) Parainfluenza 1 (PCR) (NotDetected) Parainfluenza 2 (PCR) (NotDetected) Parainfluenza 3 (PCR) (NotDetected) Parainfluenza 4 (PCR) (NotDetected) RSV (PCR) (NotDetected) Entero/Rhino (PCR) (NotDetected) mcr-1 Colistin Res Gene PCR (NotDetected) blaIMP Car res Gene PCR (NotDetected) KPC-Carbap Res Gene PCR (NotDetected) blaNDM Car Res Gene PCR (NotDetected) OXA-48 Carbapenem Resis Gene (PCR) (NotDetected) blaVIM Car Res Gene PCR (NotDetected) CTX-M Gene Resistance (PCR) (NotDetected) Bld Cult ID Panel PCR (NotDetected) 10/21/24 10/21/24 10/21/24 Range/Units Unknown 23:08 23:01 WBC (4.8-10.8) K/ul RBC (4.20-5.40) M/uL Hgb (12.0-16.0) g/dl POC Hgb (12.0-16.0) g/dl Hct (37.0-47.0) % POC Hct (37-47) % MCV (80.0-100.0) fL MCH (25.0-34.0) pg MCHC (32.0-36.0) g/dL RDW Std Deviation (36.4-46.3) fL RDW Coeff of Katrin (11.5-14.5) % Plt Count (130-400) K/uL MPV (9.4-12.4) fL Immature Gran % (Auto) % Neut % (Auto) % Lymph % (Auto) % Norman % (Auto) % Eos % (Auto) % Baso % (Auto) % Neut # (Auto) (1.40-6.50) K/uL Lymph # (Auto) (1.20-3.40) K/uL Norman # (Auto) (0.11-0.59) K/uL Eos # (Auto) (0.00-0.50) K/uL Baso # (Auto) (0.00-0.20) K/uL Immature Gran # (Auto) (0.01-0.20) K/uL Toxic Granulation Polychromasia Ovalocytes ESR (0-30) mm/hr PT (9.0-12.0) Seconds INR (0.9-1.1) APTT (21-31) Seconds PTT Ratio POC pH (7.35-7.45) POC pCO2 (35-46) mmHg POC pO2 (80-95) mmHg POC HCO3 (19-24) meño/L POC Base Excess (-9-1.8) meño/L POC ABG O2 Sat (90-95) % VBG pH 7.29 L (7.36-7.41) VBG pCO2 (38-50) mmHg VBG pO2 mmHg VBG HCO3 mmol/L VBG O2 Saturation % VBG Base Excess mEq/L POC Sodium (135-144) mmol/L Sodium 133 L (136-145) mmol/L POC Potassium (3.3-5.0) mmol/L Potassium 4.1 (3.5-5.1) mmol/L POC Chloride (101-112) mmol/L Chloride 104 (98-107) mmol/L Carbon Dioxide 19 L (21-32) mmol/L POC Total CO2 (24-31) mmol/L Anion Gap 10 (3-11) POC Anion Gap (16-25) mmol/L POC BUN (7-18) mg/dl BUN 27 H (6-23) mg/dl Creatinine 1.15 (0.6-1.2) mg/dl POC Creatinine (0.6-1.3) mg/dl Est Cr Clr Drug Dosing 48.1 ml/min eGFR 49.68 BUN/Creatinine Ratio 23.5 H (10-20) Glucose 401 H* (70-99(Fasting)) mg/dl POC Glucose 378 H* (70-99) mg/dl POC Glucose (other) (70-99) mg/dl Osmolality (280-300) mOsm/kg Lactate 4.3 H* (0.4-2.0) mmol/L Calcium 8.2 L (8.6-10.3) mg/dl POC Ioniz Calcium [place] (1.12-1.32) mmol/l Phosphorus 2.3 L (2.5-4.9) mg/dl Magnesium 2.3 (1.7-2.4) mg/dl Ferritin (8-388) ng/ml Total Bilirubin (0.2-1.0) mg/dl Direct Bilirubin (0-0.2) mg/dl AST (13-39) U/L ALT (7-52) U/L Alkaline Phosphatase (34-104) U/L Total Creatine Kinase (26-192) U/L Troponin I High Sens 389.9 H* D (0-14) pg/ml C-Reactive Protein (0-0.5) mg/dl B-Natriuretic Peptide (0-100) pg/ml Total Protein (6.0-8.3) gm/dl Albumin (3.4-5.0) gm/dl Procalcitonin (0-0.5) ng/ml Urine Color Urine Appearance (Clear) Urine pH (4.5-7.5) Ur Specific [place] (1.000-1.030) Urine Protein (Negative) Urine Glucose (UA) (Negative) Urine Ketones (Negative) Urine Blood (Negative) Urine Nitrite (Negative) Urine Bilirubin (Negative) Urine Urobilinogen (Negative) Ur Leukocyte Esterase (Negative) Urine WBC (Auto) (0-5) /hpf Urine RBC (Auto) (0-2) /hpf U Hyaline Cast (Auto) (0-2) /lpf U Epithel Cells (Auto) (0-2) /hpf Urine Bacteria (Auto) (None Seen) Hyaline Casts (None Presnt) /lpf Urine Osmolality (500-800) mOsm/kg Nasal Screen MRSA (PCR) Negative (Negative) Adenovirus (PCR) (NotDetected) B. pertussis DNA (PCR) (NotDetected) B.parapertussis DNA PCR (NotDetected) C. pneumoniae DNA (PCR) (NotDetected) Coronavirus OC43 (PCR) (NotDetected) Coronavirus HKU1 (PCR) (NotDetected) Coronavirus 229E (PCR) (NotDetected) SARS-CoV-2 (PCR) (NotDetected) Coronavirus NL63 (PCR) (NotDetected) Enterobacterales (PCR) (NotDetected) E. coli (PCR) (NotDetected) Hep Bs Antigen (Negative) Hep Bs Antibody Hep Bs Antibody, Quant (>or=10mIU/mL Immune) mIU/mL Hepatitis C Antibody (Negative) Human Metapneumovir PCR (NotDetected) Influenza Type A (PCR) (NotDetected) Influenza Type B (PCR) (NotDetected) M. pneumoniae (PCR) (NotDetected) Parainfluenza 1 (PCR) (NotDetected) Parainfluenza 2 (PCR) (NotDetected) Parainfluenza 3 (PCR) (NotDetected) Parainfluenza 4 (PCR) (NotDetected) RSV (PCR) (NotDetected) Entero/Rhino (PCR) (NotDetected) mcr-1 Colistin Res Gene PCR (NotDetected) blaIMP Car res Gene PCR (NotDetected) KPC-Carbap Res Gene PCR (NotDetected) blaNDM Car Res Gene PCR (NotDetected) OXA-48 Carbapenem Resis Gene (PCR) (NotDetected) blaVIM Car Res Gene PCR (NotDetected) CTX-M Gene Resistance (PCR) (NotDetected) Bld Cult ID Panel PCR (NotDetected) 10/21/24 10/21/24 10/21/24 Range/Units 21:55 21:06 20:04 WBC (4.8-10.8) K/ul RBC (4.20-5.40) M/uL Hgb (12.0-16.0) g/dl POC Hgb (12.0-16.0) g/dl Hct (37.0-47.0) % POC Hct (37-47) % MCV (80.0-100.0) fL MCH (25.0-34.0) pg MCHC (32.0-36.0) g/dL RDW Std Deviation (36.4-46.3) fL RDW Coeff of Katrin (11.5-14.5) % Plt Count (130-400) K/uL MPV (9.4-12.4) fL Immature Gran % (Auto) % Neut % (Auto) % Lymph % (Auto) % Norman % (Auto) % Eos % (Auto) % Baso % (Auto) % Neut # (Auto) (1.40-6.50) K/uL Lymph # (Auto) (1.20-3.40) K/uL Norman # (Auto) (0.11-0.59) K/uL Eos # (Auto) (0.00-0.50) K/uL Baso # (Auto) (0.00-0.20) K/uL Immature Gran # (Auto) (0.01-0.20) K/uL Toxic Granulation Polychromasia Ovalocytes ESR (0-30) mm/hr PT (9.0-12.0) Seconds INR (0.9-1.1) APTT (21-31) Seconds PTT Ratio POC pH (7.35-7.45) POC pCO2 (35-46) mmHg POC pO2 (80-95) mmHg POC HCO3 (19-24) meño/L POC Base Excess (-9-1.8) meño/L POC ABG O2 Sat (90-95) % VBG pH (7.36-7.41) VBG pCO2 (38-50) mmHg VBG pO2 mmHg VBG HCO3 mmol/L VBG O2 Saturation % VBG Base Excess mEq/L POC Sodium (135-144) mmol/L Sodium (136-145) mmol/L POC Potassium (3.3-5.0) mmol/L Potassium (3.5-5.1) mmol/L POC Chloride (101-112) mmol/L Chloride (98-107) mmol/L Carbon Dioxide (21-32) mmol/L POC Total CO2 (24-31) mmol/L Anion Gap (3-11) POC Anion Gap (16-25) mmol/L POC BUN (7-18) mg/dl BUN (6-23) mg/dl Creatinine (0.6-1.2) mg/dl POC Creatinine (0.6-1.3) mg/dl Est Cr Clr Drug Dosing ml/min eGFR BUN/Creatinine Ratio (10-20) Glucose (70-99(Fasting)) mg/dl POC Glucose 406 H* 418 H* 409 H* (70-99) mg/dl POC Glucose (other) (70-99) mg/dl Osmolality (280-300) mOsm/kg Lactate (0.4-2.0) mmol/L Calcium (8.6-10.3) mg/dl POC Ioniz Calcium [place] (1.12-1.32) mmol/l Phosphorus (2.5-4.9) mg/dl Magnesium (1.7-2.4) mg/dl Ferritin (8-388) ng/ml Total Bilirubin (0.2-1.0) mg/dl Direct Bilirubin (0-0.2) mg/dl AST (13-39) U/L ALT (7-52) U/L Alkaline Phosphatase (34-104) U/L Total Creatine Kinase (26-192) U/L Troponin I High Sens (0-14) pg/ml C-Reactive Protein (0-0.5) mg/dl B-Natriuretic Peptide (0-100) pg/ml Total Protein (6.0-8.3) gm/dl Albumin (3.4-5.0) gm/dl Procalcitonin (0-0.5) ng/ml Urine Color Urine Appearance (Clear) Urine pH (4.5-7.5) Ur Specific [place] (1.000-1.030) Urine Protein (Negative) Urine Glucose (UA) (Negative) Urine Ketones (Negative) Urine Blood (Negative) Urine Nitrite (Negative) Urine Bilirubin (Negative) Urine Urobilinogen (Negative) Ur Leukocyte Esterase (Negative) Urine WBC (Auto) (0-5) /hpf Urine RBC (Auto) (0-2) /hpf U Hyaline Cast (Auto) (0-2) /lpf U Epithel Cells (Auto) (0-2) /hpf Urine Bacteria (Auto) (None Seen) Hyaline Casts (None Presnt) /lpf Urine Osmolality (500-800) mOsm/kg Nasal Screen MRSA (PCR) (Negative) Adenovirus (PCR) (NotDetected) B. pertussis DNA (PCR) (NotDetected) B.parapertussis DNA PCR (NotDetected) C. pneumoniae DNA (PCR) (NotDetected) Coronavirus OC43 (PCR) (NotDetected) Coronavirus HKU1 (PCR) (NotDetected) Coronavirus 229E (PCR) (NotDetected) SARS-CoV-2 (PCR) (NotDetected) Coronavirus NL63 (PCR) (NotDetected) Enterobacterales (PCR) (NotDetected) E. coli (PCR) (NotDetected) Hep Bs Antigen (Negative) Hep Bs Antibody Hep Bs Antibody, Quant (>or=10mIU/mL Immune) mIU/mL Hepatitis C Antibody (Negative) Human Metapneumovir PCR (NotDetected) Influenza Type A (PCR) (NotDetected) Influenza Type B (PCR) (NotDetected) M. pneumoniae (PCR) (NotDetected) Parainfluenza 1 (PCR) (NotDetected) Parainfluenza 2 (PCR) (NotDetected) Parainfluenza 3 (PCR) (NotDetected) Parainfluenza 4 (PCR) (NotDetected) RSV (PCR) (NotDetected) Entero/Rhino (PCR) (NotDetected) mcr-1 Colistin Res Gene PCR (NotDetected) blaIMP Car res Gene PCR (NotDetected) KPC-Carbap Res Gene PCR (NotDetected) blaNDM Car Res Gene PCR (NotDetected) OXA-48 Carbapenem Resis Gene (PCR) (NotDetected) blaVIM Car Res Gene PCR (NotDetected) CTX-M Gene Resistance (PCR) (NotDetected) Bld Cult ID Panel PCR (NotDetected) 10/21/24 10/21/24 10/21/24 Range/Units 19:35 19:23 19:21 WBC (4.8-10.8) K/ul RBC (4.20-5.40) M/uL Hgb (12.0-16.0) g/dl POC Hgb (12.0-16.0) g/dl Hct (37.0-47.0) % POC Hct (37-47) % MCV (80.0-100.0) fL MCH (25.0-34.0) pg MCHC (32.0-36.0) g/dL RDW Std Deviation (36.4-46.3) fL RDW Coeff of Katrin (11.5-14.5) % Plt Count (130-400) K/uL MPV (9.4-12.4) fL Immature Gran % (Auto) % Neut % (Auto) % Lymph % (Auto) % Norman % (Auto) % Eos % (Auto) % Baso % (Auto) % Neut # (Auto) (1.40-6.50) K/uL Lymph # (Auto) (1.20-3.40) K/uL Norman # (Auto) (0.11-0.59) K/uL Eos # (Auto) (0.00-0.50) K/uL Baso # (Auto) (0.00-0.20) K/uL Immature Gran # (Auto) (0.01-0.20) K/uL Toxic Granulation Polychromasia Ovalocytes ESR (0-30) mm/hr PT (9.0-12.0) Seconds INR (0.9-1.1) APTT (21-31) Seconds PTT Ratio POC pH (7.35-7.45) POC pCO2 (35-46) mmHg POC pO2 (80-95) mmHg POC HCO3 (19-24) meño/L POC Base Excess (-9-1.8) meño/L POC ABG O2 Sat (90-95) % VBG pH (7.36-7.41) VBG pCO2 (38-50) mmHg VBG pO2 mmHg VBG HCO3 mmol/L VBG O2 Saturation % VBG Base Excess mEq/L POC Sodium (135-144) mmol/L Sodium (136-145) mmol/L POC Potassium (3.3-5.0) mmol/L Potassium (3.5-5.1) mmol/L POC Chloride (101-112) mmol/L Chloride (98-107) mmol/L Carbon Dioxide (21-32) mmol/L POC Total CO2 (24-31) mmol/L Anion Gap (3-11) POC Anion Gap (16-25) mmol/L POC BUN (7-18) mg/dl BUN (6-23) mg/dl Creatinine (0.6-1.2) mg/dl POC Creatinine (0.6-1.3) mg/dl Est Cr Clr Drug Dosing ml/min eGFR BUN/Creatinine Ratio (10-20) Glucose (70-99(Fasting)) mg/dl POC Glucose (70-99) mg/dl POC Glucose (other) (70-99) mg/dl Osmolality 307 H (280-300) mOsm/kg Lactate (0.4-2.0) mmol/L Calcium (8.6-10.3) mg/dl POC Ioniz Calcium [place] (1.12-1.32) mmol/l Phosphorus (2.5-4.9) mg/dl Magnesium (1.7-2.4) mg/dl Ferritin (8-388) ng/ml Total Bilirubin (0.2-1.0) mg/dl Direct Bilirubin (0-0.2) mg/dl AST (13-39) U/L ALT (7-52) U/L Alkaline Phosphatase (34-104) U/L Total Creatine Kinase (26-192) U/L Troponin I High Sens 523.3 H* D (0-14) pg/ml C-Reactive Protein 15.69 H (0-0.5) mg/dl B-Natriuretic Peptide (0-100) pg/ml Total Protein (6.0-8.3) gm/dl Albumin (3.4-5.0) gm/dl Procalcitonin (0-0.5) ng/ml Urine Color Urine Appearance (Clear) Urine pH (4.5-7.5) Ur Specific [place] (1.000-1.030) Urine Protein (Negative) Urine Glucose (UA) (Negative) Urine Ketones (Negative) Urine Blood (Negative) Urine Nitrite (Negative) Urine Bilirubin (Negative) Urine Urobilinogen (Negative) Ur Leukocyte Esterase (Negative) Urine WBC (Auto) (0-5) /hpf Urine RBC (Auto) (0-2) /hpf U Hyaline Cast (Auto) (0-2) /lpf U Epithel Cells (Auto) (0-2) /hpf Urine Bacteria (Auto) (None Seen) Hyaline Casts (None Presnt) /lpf Urine Osmolality 505 (500-800) mOsm/kg Nasal Screen MRSA (PCR) (Negative) Adenovirus (PCR) (NotDetected) B. pertussis DNA (PCR) (NotDetected) B.parapertussis DNA PCR (NotDetected) C. pneumoniae DNA (PCR) (NotDetected) Coronavirus OC43 (PCR) (NotDetected) Coronavirus HKU1 (PCR) (NotDetected) Coronavirus 229E (PCR) (NotDetected) SARS-CoV-2 (PCR) (NotDetected) Coronavirus NL63 (PCR) (NotDetected) Enterobacterales (PCR) (NotDetected) E. coli (PCR) (NotDetected) Hep Bs Antigen (Negative) Hep Bs Antibody Hep Bs Antibody, Quant (>or=10mIU/mL Immune) mIU/mL Hepatitis C Antibody (Negative) Human Metapneumovir PCR (NotDetected) Influenza Type A (PCR) (NotDetected) Influenza Type B (PCR) (NotDetected) M. pneumoniae (PCR) (NotDetected) Parainfluenza 1 (PCR) (NotDetected) Parainfluenza 2 (PCR) (NotDetected) Parainfluenza 3 (PCR) (NotDetected) Parainfluenza 4 (PCR) (NotDetected) RSV (PCR) (NotDetected) Entero/Rhino (PCR) (NotDetected) mcr-1 Colistin Res Gene PCR (NotDetected) blaIMP Car res Gene PCR (NotDetected) KPC-Carbap Res Gene PCR (NotDetected) blaNDM Car Res Gene PCR (NotDetected) OXA-48 Carbapenem Resis Gene (PCR) (NotDetected) blaVIM Car Res Gene PCR (NotDetected) CTX-M Gene Resistance (PCR) (NotDetected) Bld Cult ID Panel PCR (NotDetected) 10/21/24 10/21/24 10/21/24 Range/Units 19:21 19:12 18:00 WBC 16.97 H (4.8-10.8) K/ul RBC 2.86 L (4.20-5.40) M/uL Hgb 8.2 L (12.0-16.0) g/dl POC Hgb (12.0-16.0) g/dl Hct 25.9 L (37.0-47.0) % POC Hct (37-47) % MCV 90.6 (80.0-100.0) fL MCH 28.7 (25.0-34.0) pg MCHC 31.7 L (32.0-36.0) g/dL RDW Std Deviation 51.7 H (36.4-46.3) fL RDW Coeff of Katrin 15.4 H (11.5-14.5) % Plt Count 136 (130-400) K/uL MPV 11.7 (9.4-12.4) fL Immature Gran % (Auto) 0.5 % Neut % (Auto) 95.3 % Lymph % (Auto) 1.9 % Norman % (Auto) 2.1 % Eos % (Auto) 0.0 % Baso % (Auto) 0.2 % Neut # (Auto) 16.18 H (1.40-6.50) K/uL Lymph # (Auto) 0.32 L (1.20-3.40) K/uL Norman # (Auto) 0.35 (0.11-0.59) K/uL Eos # (Auto) 0.00 (0.00-0.50) K/uL Baso # (Auto) 0.04 (0.00-0.20) K/uL Immature Gran # (Auto) 0.08 (0.01-0.20) K/uL Toxic Granulation Polychromasia Ovalocytes ESR 44 H (0-30) mm/hr PT (9.0-12.0) Seconds INR (0.9-1.1) APTT (21-31) Seconds PTT Ratio POC pH (7.35-7.45) POC pCO2 (35-46) mmHg POC pO2 (80-95) mmHg POC HCO3 (19-24) meño/L POC Base Excess (-9-1.8) meño/L POC ABG O2 Sat (90-95) % VBG pH 7.29 L (7.36-7.41) VBG pCO2 (38-50) mmHg VBG pO2 mmHg VBG HCO3 mmol/L VBG O2 Saturation % VBG Base Excess mEq/L POC Sodium (135-144) mmol/L Sodium 132 L (136-145) mmol/L POC Potassium (3.3-5.0) mmol/L Potassium 3.8 (3.5-5.1) mmol/L POC Chloride (101-112) mmol/L Chloride 104 (98-107) mmol/L Carbon Dioxide 16 L (21-32) mmol/L POC Total CO2 (24-31) mmol/L Anion Gap 12 H (3-11) POC Anion Gap (16-25) mmol/L POC BUN (7-18) mg/dl BUN 29 H (6-23) mg/dl Creatinine 1.26 H (0.6-1.2) mg/dl POC Creatinine (0.6-1.3) mg/dl Est Cr Clr Drug Dosing 43.9 ml/min eGFR 44.52 BUN/Creatinine Ratio 23.0 H (10-20) Glucose 440 H* (70-99(Fasting)) mg/dl POC Glucose 409 H* (70-99) mg/dl POC Glucose (other) (70-99) mg/dl Osmolality (280-300) mOsm/kg Lactate 6.7 H* (0.4-2.0) mmol/L Calcium 8.2 L (8.6-10.3) mg/dl POC Ioniz Calcium [place] (1.12-1.32) mmol/l Phosphorus 2.1 L (2.5-4.9) mg/dl Magnesium 1.8 (1.7-2.4) mg/dl Ferritin (8-388) ng/ml Total Bilirubin (0.2-1.0) mg/dl Direct Bilirubin (0-0.2) mg/dl AST (13-39) U/L ALT (7-52) U/L Alkaline Phosphatase (34-104) U/L Total Creatine Kinase 85 (26-192) U/L Troponin I High Sens Cancelled (0-14) pg/ml C-Reactive Protein (0-0.5) mg/dl B-Natriuretic Peptide (0-100) pg/ml Total Protein (6.0-8.3) gm/dl Albumin (3.4-5.0) gm/dl Procalcitonin (0-0.5) ng/ml Urine Color Urine Appearance (Clear) Urine pH (4.5-7.5) Ur Specific [place] (1.000-1.030) Urine Protein (Negative) Urine Glucose (UA) (Negative) Urine Ketones (Negative) Urine Blood (Negative) Urine Nitrite (Negative) Urine Bilirubin (Negative) Urine Urobilinogen (Negative) Ur Leukocyte Esterase (Negative) Urine WBC (Auto) (0-5) /hpf Urine RBC (Auto) (0-2) /hpf U Hyaline Cast (Auto) (0-2) /lpf U Epithel Cells (Auto) (0-2) /hpf Urine Bacteria (Auto) (None Seen) Hyaline Casts (None Presnt) /lpf Urine Osmolality (500-800) mOsm/kg Nasal Screen MRSA (PCR) (Negative) Adenovirus (PCR) (NotDetected) B. pertussis DNA (PCR) (NotDetected) B.parapertussis DNA PCR (NotDetected) C. pneumoniae DNA (PCR) (NotDetected) Coronavirus OC43 (PCR) (NotDetected) Coronavirus HKU1 (PCR) (NotDetected) Coronavirus 229E (PCR) (NotDetected) SARS-CoV-2 (PCR) (NotDetected) Coronavirus NL63 (PCR) (NotDetected) Enterobacterales (PCR) (NotDetected) E. coli (PCR) (NotDetected) Hep Bs Antigen (Negative) Hep Bs Antibody Hep Bs Antibody, Quant (>or=10mIU/mL Immune) mIU/mL Hepatitis C Antibody (Negative) Human Metapneumovir PCR (NotDetected) Influenza Type A (PCR) (NotDetected) Influenza Type B (PCR) (NotDetected) M. pneumoniae (PCR) (NotDetected) Parainfluenza 1 (PCR) (NotDetected) Parainfluenza 2 (PCR) (NotDetected) Parainfluenza 3 (PCR) (NotDetected) Parainfluenza 4 (PCR) (NotDetected) RSV (PCR) (NotDetected) Entero/Rhino (PCR) (NotDetected) mcr-1 Colistin Res Gene PCR (NotDetected) blaIMP Car res Gene PCR (NotDetected) KPC-Carbap Res Gene PCR (NotDetected) blaNDM Car Res Gene PCR (NotDetected) OXA-48 Carbapenem Resis Gene (PCR) (NotDetected) blaVIM Car Res Gene PCR (NotDetected) CTX-M Gene Resistance (PCR) (NotDetected) Bld Cult ID Panel PCR (NotDetected) 10/21/24 10/21/24 10/21/24 Range/Units 16:28 16:21 16:21 WBC (4.8-10.8) K/ul RBC (4.20-5.40) M/uL Hgb (12.0-16.0) g/dl POC Hgb (12.0-16.0) g/dl Hct (37.0-47.0) % POC Hct (37-47) % MCV (80.0-100.0) fL MCH (25.0-34.0) pg MCHC (32.0-36.0) g/dL RDW Std Deviation (36.4-46.3) fL RDW Coeff of Katrin (11.5-14.5) % Plt Count (130-400) K/uL MPV (9.4-12.4) fL Immature Gran % (Auto) % Neut % (Auto) % Lymph % (Auto) % Norman % (Auto) % Eos % (Auto) % Baso % (Auto) % Neut # (Auto) (1.40-6.50) K/uL Lymph # (Auto) (1.20-3.40) K/uL Norman # (Auto) (0.11-0.59) K/uL Eos # (Auto) (0.00-0.50) K/uL Baso # (Auto) (0.00-0.20) K/uL Immature Gran # (Auto) (0.01-0.20) K/uL Toxic Granulation Polychromasia Ovalocytes ESR (0-30) mm/hr PT (9.0-12.0) Seconds INR (0.9-1.1) APTT (21-31) Seconds PTT Ratio POC pH (7.35-7.45) POC pCO2 (35-46) mmHg POC pO2 (80-95) mmHg POC HCO3 (19-24) meño/L POC Base Excess (-9-1.8) meño/L POC ABG O2 Sat (90-95) % VBG pH (7.36-7.41) VBG pCO2 (38-50) mmHg VBG pO2 mmHg VBG HCO3 mmol/L VBG O2 Saturation % VBG Base Excess mEq/L POC Sodium (135-144) mmol/L Sodium 134 L (136-145) mmol/L POC Potassium (3.3-5.0) mmol/L Potassium 4.3 D (3.5-5.1) mmol/L POC Chloride (101-112) mmol/L Chloride 101 (98-107) mmol/L Carbon Dioxide 15 L (21-32) mmol/L POC Total CO2 (24-31) mmol/L Anion Gap 18 H (3-11) POC Anion Gap (16-25) mmol/L POC BUN (7-18) mg/dl BUN 29 H (6-23) mg/dl Creatinine 1.26 H (0.6-1.2) mg/dl POC Creatinine (0.6-1.3) mg/dl Est Cr Clr Drug Dosing 43.9 ml/min eGFR 44.52 BUN/Creatinine Ratio 23.0 H (10-20) Glucose 456 H* (70-99(Fasting)) mg/dl POC Glucose 409 H* (70-99) mg/dl POC Glucose (other) (70-99) mg/dl Osmolality (280-300) mOsm/kg Lactate 9.5 H* (0.4-2.0) mmol/L Calcium 8.7 (8.6-10.3) mg/dl POC Ioniz Calcium [place] (1.12-1.32) mmol/l Phosphorus (2.5-4.9) mg/dl Magnesium (1.7-2.4) mg/dl Ferritin (8-388) ng/ml Total Bilirubin (0.2-1.0) mg/dl Direct Bilirubin (0-0.2) mg/dl AST (13-39) U/L ALT (7-52) U/L Alkaline Phosphatase (34-104) U/L Total Creatine Kinase (26-192) U/L Troponin I High Sens 666.7 H* 697.3 H* (0-14) pg/ml C-Reactive Protein (0-0.5) mg/dl B-Natriuretic Peptide (0-100) pg/ml Total Protein (6.0-8.3) gm/dl Albumin (3.4-5.0) gm/dl Procalcitonin (0-0.5) ng/ml Urine Color Urine Appearance (Clear) Urine pH (4.5-7.5) Ur Specific [place] (1.000-1.030) Urine Protein (Negative) Urine Glucose (UA) (Negative) Urine Ketones (Negative) Urine Blood (Negative) Urine Nitrite (Negative) Urine Bilirubin (Negative) Urine Urobilinogen (Negative) Ur Leukocyte Esterase (Negative) Urine WBC (Auto) (0-5) /hpf Urine RBC (Auto) (0-2) /hpf U Hyaline Cast (Auto) (0-2) /lpf U Epithel Cells (Auto) (0-2) /hpf Urine Bacteria (Auto) (None Seen) Hyaline Casts (None Presnt) /lpf Urine Osmolality (500-800) mOsm/kg Nasal Screen MRSA (PCR) (Negative) Adenovirus (PCR) (NotDetected) B. pertussis DNA (PCR) (NotDetected) B.parapertussis DNA PCR (NotDetected) C. pneumoniae DNA (PCR) (NotDetected) Coronavirus OC43 (PCR) (NotDetected) Coronavirus HKU1 (PCR) (NotDetected) Coronavirus 229E (PCR) (NotDetected) SARS-CoV-2 (PCR) (NotDetected) Coronavirus NL63 (PCR) (NotDetected) Enterobacterales (PCR) (NotDetected) E. coli (PCR) (NotDetected) Hep Bs Antigen (Negative) Hep Bs Antibody Hep Bs Antibody, Quant (>or=10mIU/mL Immune) mIU/mL Hepatitis C Antibody (Negative) Human Metapneumovir PCR (NotDetected) Influenza Type A (PCR) (NotDetected) Influenza Type B (PCR) (NotDetected) M. pneumoniae (PCR) (NotDetected) Parainfluenza 1 (PCR) (NotDetected) Parainfluenza 2 (PCR) (NotDetected) Parainfluenza 3 (PCR) (NotDetected) Parainfluenza 4 (PCR) (NotDetected) RSV (PCR) (NotDetected) Entero/Rhino (PCR) (NotDetected) mcr-1 Colistin Res Gene PCR (NotDetected) blaIMP Car res Gene PCR (NotDetected) KPC-Carbap Res Gene PCR (NotDetected) blaNDM Car Res Gene PCR (NotDetected) OXA-48 Carbapenem Resis Gene (PCR) (NotDetected) blaVIM Car Res Gene PCR (NotDetected) CTX-M Gene Resistance (PCR) (NotDetected) Bld Cult ID Panel PCR (NotDetected) 10/21/24 10/21/24 10/21/24 Range/Units 16:11 15:49 14:40 WBC (4.8-10.8) K/ul RBC (4.20-5.40) M/uL Hgb (12.0-16.0) g/dl POC Hgb (12.0-16.0) g/dl Hct (37.0-47.0) % POC Hct (37-47) % MCV (80.0-100.0) fL MCH (25.0-34.0) pg MCHC (32.0-36.0) g/dL RDW Std Deviation (36.4-46.3) fL RDW Coeff of Katrin (11.5-14.5) % Plt Count (130-400) K/uL MPV (9.4-12.4) fL Immature Gran % (Auto) % Neut % (Auto) % Lymph % (Auto) % Norman % (Auto) % Eos % (Auto) % Baso % (Auto) % Neut # (Auto) (1.40-6.50) K/uL Lymph # (Auto) (1.20-3.40) K/uL Norman # (Auto) (0.11-0.59) K/uL Eos # (Auto) (0.00-0.50) K/uL Baso # (Auto) (0.00-0.20) K/uL Immature Gran # (Auto) (0.01-0.20) K/uL Toxic Granulation Polychromasia Ovalocytes ESR (0-30) mm/hr PT (9.0-12.0) Seconds INR (0.9-1.1) APTT (21-31) Seconds PTT Ratio POC pH (7.35-7.45) POC pCO2 (35-46) mmHg POC pO2 (80-95) mmHg POC HCO3 (19-24) meño/L POC Base Excess (-9-1.8) meño/L POC ABG O2 Sat (90-95) % VBG pH (7.36-7.41) VBG pCO2 (38-50) mmHg VBG pO2 mmHg VBG HCO3 mmol/L VBG O2 Saturation % VBG Base Excess mEq/L POC Sodium (135-144) mmol/L Sodium (136-145) mmol/L POC Potassium (3.3-5.0) mmol/L Potassium (3.5-5.1) mmol/L POC Chloride (101-112) mmol/L Chloride (98-107) mmol/L Carbon Dioxide (21-32) mmol/L POC Total CO2 (24-31) mmol/L Anion Gap (3-11) POC Anion Gap (16-25) mmol/L POC BUN (7-18) mg/dl BUN (6-23) mg/dl Creatinine (0.6-1.2) mg/dl POC Creatinine (0.6-1.3) mg/dl Est Cr Clr Drug Dosing ml/min eGFR BUN/Creatinine Ratio (10-20) Glucose (70-99(Fasting)) mg/dl POC Glucose (70-99) mg/dl POC Glucose (other) (70-99) mg/dl Osmolality (280-300) mOsm/kg Lactate 7.7 H* (0.4-2.0) mmol/L Calcium (8.6-10.3) mg/dl POC Ioniz Calcium Lorena (1.12-1.32) mmol/l Phosphorus (2.5-4.9) mg/dl Magnesium (1.7-2.4) mg/dl Ferritin (8-388) ng/ml Total Bilirubin (0.2-1.0) mg/dl Direct Bilirubin (0-0.2) mg/dl AST (13-39) U/L ALT (7-52) U/L Alkaline Phosphatase (34-104) U/L Total Creatine Kinase (26-192) U/L Troponin I High Sens (0-14) pg/ml C-Reactive Protein (0-0.5) mg/dl B-Natriuretic Peptide 1156 H (0-100) pg/ml Total Protein (6.0-8.3) gm/dl Albumin (3.4-5.0) gm/dl Procalcitonin (0-0.5) ng/ml Urine Color Yellow Urine Appearance Cloudy A (Clear) Urine pH 5.0 (4.5-7.5) Ur Specific Jefferson 1.026 (1.000-1.030) Urine Protein 2+ H (Negative) Urine Glucose (UA) Trace H (Negative) Urine Ketones Trace H (Negative) Urine Blood 3+ H (Negative) Urine Nitrite Negative (Negative) Urine Bilirubin Negative (Negative) Urine Urobilinogen Negative (Negative) Ur Leukocyte Esterase Negative (Negative) Urine WBC (Auto) 11-20 H (0-5) /hpf Urine RBC (Auto) >20 H (0-2) /hpf U Hyaline Cast (Auto) >20 H (0-2) /lpf U Epithel Cells (Auto) 6-10 H (0-2) /hpf Urine Bacteria (Auto) 1+ H (None Seen) Hyaline Casts Present A (None Presnt) /lpf Urine Osmolality (500-800) mOsm/kg Nasal Screen MRSA (PCR) (Negative) Adenovirus (PCR) (NotDetected) B. pertussis DNA (PCR) (NotDetected) B.parapertussis DNA PCR (NotDetected) C. pneumoniae DNA (PCR) (NotDetected) Coronavirus OC43 (PCR) (NotDetected) Coronavirus HKU1 (PCR) (NotDetected) Coronavirus 229E (PCR) (NotDetected) SARS-CoV-2 (PCR) (NotDetected) Coronavirus NL63 (PCR) (NotDetected) Enterobacterales (PCR) DETECTED A (NotDetected) E. coli (PCR) DETECTED A (NotDetected) Hep Bs Antigen (Negative) Hep Bs Antibody Hep Bs Antibody, Quant (>or=10mIU/mL Immune) mIU/mL Hepatitis C Antibody (Negative) Human Metapneumovir PCR (NotDetected) Influenza Type A (PCR) (NotDetected) Influenza Type B (PCR) (NotDetected) M. pneumoniae (PCR) (NotDetected) Parainfluenza 1 (PCR) (NotDetected) Parainfluenza 2 (PCR) (NotDetected) Parainfluenza 3 (PCR) (NotDetected) Parainfluenza 4 (PCR) (NotDetected) RSV (PCR) (NotDetected) Entero/Rhino (PCR) (NotDetected) mcr-1 Colistin Res Gene PCR Not Detected (NotDetected) blaIMP Car res Gene PCR Not Detected (NotDetected) KPC-Carbap Res Gene PCR Not Detected (NotDetected) blaNDM Car Res Gene PCR Not Detected (NotDetected) OXA-48 Carbapenem Resis Gene (PCR) Not Detected (NotDetected) blaVIM Car Res Gene PCR Not Detected (NotDetected) CTX-M Gene Resistance (PCR) Not Detected (NotDetected) Bld Cult ID Panel PCR See PCR Comment (NotDetected) 10/21/24 10/21/24 10/21/24 Range/Units 14:16 14:09 14:07 WBC (4.8-10.8) K/ul RBC (4.20-5.40) M/uL Hgb (12.0-16.0) g/dl POC Hgb 10.2 L 10.9 L (12.0-16.0) g/dl Hct (37.0-47.0) % POC Hct 30 L 32 L (37-47) % MCV (80.0-100.0) fL MCH (25.0-34.0) pg MCHC (32.0-36.0) g/dL RDW Std Deviation (36.4-46.3) fL RDW Coeff of Katrin (11.5-14.5) % Plt Count (130-400) K/uL MPV (9.4-12.4) fL Immature Gran % (Auto) % Neut % (Auto) % Lymph % (Auto) % Norman % (Auto) % Eos % (Auto) % Baso % (Auto) % Neut # (Auto) (1.40-6.50) K/uL Lymph # (Auto) (1.20-3.40) K/uL Norman # (Auto) (0.11-0.59) K/uL Eos # (Auto) (0.00-0.50) K/uL Baso # (Auto) (0.00-0.20) K/uL Immature Gran # (Auto) (0.01-0.20) K/uL Toxic Granulation Polychromasia Ovalocytes ESR (0-30) mm/hr PT (9.0-12.0) Seconds INR (0.9-1.1) APTT (21-31) Seconds PTT Ratio POC pH 7.43 (7.35-7.45) POC pCO2 22 L (35-46) mmHg POC pO2 268 H (80-95) mmHg POC HCO3 14 L (19-24) meño/L POC Base Excess -10.0 L (-9-1.8) meño/L POC ABG O2 Sat 100.0 H (90-95) % VBG pH (7.36-7.41) VBG pCO2 (38-50) mmHg VBG pO2 mmHg VBG HCO3 mmol/L VBG O2 Saturation % VBG Base Excess mEq/L POC Sodium 130 L 133 L (135-144) mmol/L Sodium (136-145) mmol/L POC Potassium 4.9 5.6 H (3.3-5.0) mmol/L Potassium (3.5-5.1) mmol/L POC Chloride 101 (101-112) mmol/L Chloride (98-107) mmol/L Carbon Dioxide (21-32) mmol/L POC Total CO2 15 L 17 L (24-31) mmol/L Anion Gap (3-11) POC Anion Gap 21.0 (16-25) mmol/L POC BUN 25 H (7-18) mg/dl BUN (6-23) mg/dl Creatinine (0.6-1.2) mg/dl POC Creatinine 1.1 (0.6-1.3) mg/dl Est Cr Clr Drug Dosing ml/min eGFR BUN/Creatinine Ratio (10-20) Glucose (70-99(Fasting)) mg/dl POC Glucose 447 H* (70-99) mg/dl POC Glucose (other) 426 H* (70-99) mg/dl Osmolality (280-300) mOsm/kg Lactate (0.4-2.0) mmol/L Calcium (8.6-10.3) mg/dl POC Ioniz Calcium [place]orena 1.14 (1.12-1.32) mmol/l Phosphorus (2.5-4.9) mg/dl Magnesium (1.7-2.4) mg/dl Ferritin (8-388) ng/ml Total Bilirubin (0.2-1.0) mg/dl Direct Bilirubin (0-0.2) mg/dl AST (13-39) U/L ALT (7-52) U/L Alkaline Phosphatase (34-104) U/L Total Creatine Kinase (26-192) U/L Troponin I High Sens (0-14) pg/ml C-Reactive Protein (0-0.5) mg/dl B-Natriuretic Peptide (0-100) pg/ml Total Protein (6.0-8.3) gm/dl Albumin (3.4-5.0) gm/dl Procalcitonin (0-0.5) ng/ml Urine Color Urine Appearance (Clear) Urine pH (4.5-7.5) Ur Specific Jefferson (1.000-1.030) Urine Protein (Negative) Urine Glucose (UA) (Negative) Urine Ketones (Negative) Urine Blood (Negative) Urine Nitrite (Negative) Urine Bilirubin (Negative) Urine Urobilinogen (Negative) Ur Leukocyte Esterase (Negative) Urine WBC (Auto) (0-5) /hpf Urine RBC (Auto) (0-2) /hpf U Hyaline Cast (Auto) (0-2) /lpf U Epithel Cells (Auto) (0-2) /hpf Urine Bacteria (Auto) (None Seen) Hyaline Casts (None Presnt) /lpf Urine Osmolality (500-800) mOsm/kg Nasal Screen MRSA (PCR) (Negative) Adenovirus (PCR) (NotDetected) B. pertussis DNA (PCR) (NotDetected) B.parapertussis DNA PCR (NotDetected) C. pneumoniae DNA (PCR) (NotDetected) Coronavirus OC43 (PCR) (NotDetected) Coronavirus HKU1 (PCR) (NotDetected) Coronavirus 229E (PCR) (NotDetected) SARS-CoV-2 (PCR) (NotDetected) Coronavirus NL63 (PCR) (NotDetected) Enterobacterales (PCR) (NotDetected) E. coli (PCR) (NotDetected) Hep Bs Antigen (Negative) Hep Bs Antibody Hep Bs Antibody, Quant (>or=10mIU/mL Immune) mIU/mL Hepatitis C Antibody (Negative) Human Metapneumovir PCR (NotDetected) Influenza Type A (PCR) (NotDetected) Influenza Type B (PCR) (NotDetected) M. pneumoniae (PCR) (NotDetected) Parainfluenza 1 (PCR) (NotDetected) Parainfluenza 2 (PCR) (NotDetected) Parainfluenza 3 (PCR) (NotDetected) Parainfluenza 4 (PCR) (NotDetected) RSV (PCR) (NotDetected) Entero/Rhino (PCR) (NotDetected) mcr-1 Colistin Res Gene PCR (NotDetected) blaIMP Car res Gene PCR (NotDetected) KPC-Carbap Res Gene PCR (NotDetected) blaNDM Car Res Gene PCR (NotDetected) OXA-48 Carbapenem Resis Gene (PCR) (NotDetected) blaVIM Car Res Gene PCR (NotDetected) CTX-M Gene Resistance (PCR) (NotDetected) Bld Cult ID Panel PCR (NotDetected) 10/21/24 Range/Units 14:06 WBC 10.39 (4.8-10.8) K/ul RBC 3.58 L (4.20-5.40) M/uL Hgb 10.3 L (12.0-16.0) g/dl POC Hgb (12.0-16.0) g/dl Hct 31.9 L (37.0-47.0) % POC Hct (37-47) % MCV 89.1 (80.0-100.0) fL MCH 28.8 (25.0-34.0) pg MCHC 32.3 (32.0-36.0) g/dL RDW Std Deviation 49.2 H (36.4-46.3) fL RDW Coeff of Katrin 15.1 H (11.5-14.5) % Plt Count 184 (130-400) K/uL MPV 11.6 (9.4-12.4) fL Immature Gran % (Auto) 0.3 % Neut % (Auto) 94.5 % Lymph % (Auto) 3.4 % Norman % (Auto) 1.6 % Eos % (Auto) 0.0 % Baso % (Auto) 0.2 % Neut # (Auto) 9.82 H (1.40-6.50) K/uL Lymph # (Auto) 0.35 L (1.20-3.40) K/uL Norman # (Auto) 0.17 (0.11-0.59) K/uL Eos # (Auto) 0.00 (0.00-0.50) K/uL Baso # (Auto) 0.02 (0.00-0.20) K/uL Immature Gran # (Auto) 0.03 (0.01-0.20) K/uL Toxic Granulation Polychromasia Ovalocytes ESR (0-30) mm/hr PT 39.4 H (9.0-12.0) Seconds INR 4.1 H (0.9-1.1) APTT 39 H (21-31) Seconds PTT Ratio 1.4 POC pH (7.35-7.45) POC pCO2 (35-46) mmHg POC pO2 (80-95) mmHg POC HCO3 (19-24) meño/L POC Base Excess (-9-1.8) meño/L POC ABG O2 Sat (90-95) % VBG pH (7.36-7.41) VBG pCO2 (38-50) mmHg VBG pO2 mmHg VBG HCO3 mmol/L VBG O2 Saturation % VBG Base Excess mEq/L POC Sodium (135-144) mmol/L Sodium 134 L (136-145) mmol/L POC Potassium (3.3-5.0) mmol/L Potassium 5.5 H (3.5-5.1) mmol/L POC Chloride (101-112) mmol/L Chloride 98 (98-107) mmol/L Carbon Dioxide 19 L (21-32) mmol/L POC Total CO2 (24-31) mmol/L Anion Gap 17 H (3-11) POC Anion Gap (16-25) mmol/L POC BUN (7-18) mg/dl BUN 27 H (6-23) mg/dl Creatinine 1.16 (0.6-1.2) mg/dl POC Creatinine (0.6-1.3) mg/dl Est Cr Clr Drug Dosing 47.7 ml/min eGFR 49.17 BUN/Creatinine Ratio 23.3 H (10-20) Glucose 467 H* (70-99(Fasting)) mg/dl POC Glucose (70-99) mg/dl POC Glucose (other) (70-99) mg/dl Osmolality (280-300) mOsm/kg Lactate 10.7 H* (0.4-2.0) mmol/L Calcium 9.7 (8.6-10.3) mg/dl POC Ioniz Calcium [place]orena (1.12-1.32) mmol/l Phosphorus (2.5-4.9) mg/dl Magnesium 1.6 L (1.7-2.4) mg/dl Ferritin (8-388) ng/ml Total Bilirubin 0.9 (0.2-1.0) mg/dl Direct Bilirubin 0.3 H (0-0.2) mg/dl AST 44 H (13-39) U/L ALT 25 (7-52) U/L Alkaline Phosphatase 173 H (34-104) U/L Total Creatine Kinase (26-192) U/L Troponin I High Sens 674.8 H* (0-14) pg/ml C-Reactive Protein (0-0.5) mg/dl B-Natriuretic Peptide (0-100) pg/ml Total Protein 6.9 (6.0-8.3) gm/dl Albumin 3.5 (3.4-5.0) gm/dl Procalcitonin 15.30 H (0-0.5) ng/ml Urine Color Urine Appearance (Clear) Urine pH (4.5-7.5) Ur Specific Jefferson (1.000-1.030) Urine Protein (Negative) Urine Glucose (UA) (Negative) Urine Ketones (Negative) Urine Blood (Negative) Urine Nitrite (Negative) Urine Bilirubin (Negative) Urine Urobilinogen (Negative) Ur Leukocyte Esterase (Negative) Urine WBC (Auto) (0-5) /hpf Urine RBC (Auto) (0-2) /hpf U Hyaline Cast (Auto) (0-2) /lpf U Epithel Cells (Auto) (0-2) /hpf Urine Bacteria (Auto) (None Seen) Hyaline Casts (None Presnt) /lpf Urine Osmolality (500-800) mOsm/kg Nasal Screen MRSA (PCR) (Negative) Adenovirus (PCR) Not Detected (NotDetected) B. pertussis DNA (PCR) Not Detected (NotDetected) B.parapertussis DNA PCR Not Detected (NotDetected) C. pneumoniae DNA (PCR) Not Detected (NotDetected) Coronavirus OC43 (PCR) Not Detected (NotDetected) Coronavirus HKU1 (PCR) Not Detected (NotDetected) Coronavirus 229E (PCR) Not Detected (NotDetected) SARS-CoV-2 (PCR) Not Detected (NotDetected) Coronavirus NL63 (PCR) Not Detected (NotDetected) Enterobacterales (PCR) (NotDetected) E. coli (PCR) (NotDetected) Hep Bs Antigen (Negative) Hep Bs Antibody Hep Bs Antibody, Quant (>or=10mIU/mL Immune) mIU/mL Hepatitis C Antibody (Negative) Human Metapneumovir PCR Not Detected (NotDetected) Influenza Type A (PCR) Not Detected (NotDetected) Influenza Type B (PCR) Not Detected (NotDetected) M. pneumoniae (PCR) Not Detected (NotDetected) Parainfluenza 1 (PCR) Not Detected (NotDetected) Parainfluenza 2 (PCR) Not Detected (NotDetected) Parainfluenza 3 (PCR) Not Detected (NotDetected) Parainfluenza 4 (PCR) Not Detected (NotDetected) RSV (PCR) Not Detected (NotDetected) Entero/Rhino (PCR) Not Detected (NotDetected) mcr-1 Colistin Res Gene PCR (NotDetected) blaIMP Car res Gene PCR (NotDetected) KPC-Carbap Res Gene PCR (NotDetected) blaNDM Car Res Gene PCR (NotDetected) OXA-48 Carbapenem Resis Gene (PCR) (NotDetected) blaVIM Car Res Gene PCR (NotDetected) CTX-M Gene Resistance (PCR) (NotDetected) Bld Cult ID Panel PCR (NotDetected) Diagnostic Findings Chest X-Ray 10/21/24 14:02 XR chest 1V portable CLINICAL HISTORY: Sepsis COMPARISON STUDY: 10/05/2024 FINDINGS: There are mitral valvular calcifications. There is stable moderate cardiomegaly without pulmonary vascular congestion. No effusion, consolidation, or pneumothorax. IMPRESSION: No acute findings. ACT 112: Negative or not required by law. Electronically signed by: Marcial Aaron M.D. 10/21/2024 2:[address] 10/21/24 16:24 INDICATION: Shortness of breath. Abdominal pain. COMPARISON: No relevant priors available. TECHNIQUE: Axial CT images of the chest, abdomen and pelvis were obtained. Postcontrast CT chest images. Pre and postcontrast CT abdomen pelvis images obtained. Coronal and sagittal reformations were reviewed. FINDINGS: Chest: The thoracic aorta appears normal in caliber. The heart is mildly enlarged. No pericardial or pleural effusion. No pneumothorax. No pathologically enlarged mediastinal or hilar lymph nodes. No pulmonary consolidation. No acute osseous abnormality evident. Abdomen and pelvis: Gallstones in the gallbladder. The liver is cirrhotic. No hepatic mass identified. Mild splenomegaly. This pancreas and adrenal glands appear unremarkable. No hydronephrosis. A few small renal cysts noted. No renal calculus. No evidence of bowel obstruction/colitis/appendicitis. No free air. No drainable fluid collection. Negative for abdominal aortic aneurysm or dissection. There is a Cisneros catheter in the urinary bladder. No acute osseous abnormality evident. IMPRESSION: 1. No acute process in the chest. 2. Cirrhosis. 3. Splenomegaly. 4. Cholelithiasis. Electronically signed by Sarath Ray 10-21-2024 6:04 PM Abdomen/Pelvis CT 10/21/24 17:06 INDICATION: Shortness of breath. Abdominal pain. COMPARISON: No relevant priors available. TECHNIQUE: Axial CT images of the chest, abdomen and pelvis were obtained. Postcontrast CT chest images. Pre and postcontrast CT abdomen pelvis images obtained. Coronal and sagittal reformations were reviewed. FINDINGS: Chest: The thoracic aorta appears normal in caliber. The heart is mildly enlarged. No pericardial or pleural effusion. No pneumothorax. No pathologically enlarged mediastinal or hilar lymph nodes. No pulmonary consolidation. No acute osseous abnormality evident. Abdomen and pelvis: Gallstones in the gallbladder. The liver is cirrhotic. No hepatic mass identified. Mild splenomegaly. This pancreas and adrenal glands appear unremarkable. No hydronephrosis. A few small renal cysts noted. No renal calculus. No evidence of bowel obstruction/colitis/appendicitis. No free air. No drainable fluid collection. Negative for abdominal aortic aneurysm or dissection. There is a Cisneros catheter in the urinary bladder. No acute osseous abnormality evident. IMPRESSION: 1. No acute process in the chest. 2. Cirrhosis. 3. Splenomegaly. 4. Cholelithiasis. Electronically signed by Sarath Ray 10-21-2024 6:04 PM Chest X-Ray 10/23/24 03:57 EXAM: XR chest 1V portable CLINICAL HISTORY: SOB. TECHNIQUE: An X-ray image of the chest is obtained in AP projection. COMPARISON: 10/21/2024 X-RAY and CT. FINDINGS: Pulmonary Parenchyma: Diffuse bilateral interstitial thickening, reticulations, and nodularity, may represent interstitial edema, however, early infection couldn't excluded. nearly stable No evidence of consolidation, collapse, or focal opacities. No pulmonary nodules are identified. Interval new opacification of the right lower lung zone may be positional. Heart and Mediastinum: Enlarged cardiac size with bilateral hilar vascular congestion noted. No mediastinal widening or masses. No hilar or mediastinal lymphadenopathy. Bony Thorax: The bony thorax appears intact without fractures or deformities. Soft Tissues: Soft tissues overlying the chest wall are unremarkable. IMPRESSION: 1. Diffuse bilateral interstitial thickening, reticulations, and nodularity, may represent interstitial edema, however, early infection couldn't excluded. nearly stable 2. Interval new opacification of the right lower lung zone may be positional. 3. Cardiomegaly was unchanged. Electronically signed by Benji López 10-23-2024 05:02 AM Abdomen Ultrasound 10/23/24 08:54 US abdomen ltd ascites CLINICAL HISTORY: cirrhosis, volume overload, r/o ascites COMPARISON STUDY: CT of 10/21/2024 FINDINGS: 4 quadrants of the abdomen were examined with ultrasound. No ascites seen. IMPRESSION: No ascites seen. ACT 112: Negative or not required by law. Electronically signed by: Marcial Aaron M.D. 10/23/2024 10:17 AM PG Care Time/CCT Total # of Minutes Spent Total Time Spent with Patient: Total time spent is greater than 50% in coordination of care (as documented) at patient's floor/unit and/or counseling patient: I spent 115 minutes overall addressing this case: 15 min in medical data review/discussion with referring provider(s) and/or preparation for the visit 20 min in direct interaction with the patient/exam 45 min in Advance Care Planning/Goals of Care discussions as detailed above in note (must be >16min) 15 min in subsequent review and synthesis of assessment and plan 20 min communicating with other providers regarding the patient's case: nursing, pulm, primary team Advanced Care Planning 38547 Advanced Care Planning 30 Min 23411 Advanced Care Planning Additional 30 [place] [address] IN/OBS CONSULT LVL 5,80M (25 - SIGNIFICANT, SEPARATELY IDENTIFIABLE ) Patient Type New Medical Decision Making High Complexity Diagnoses Dyspnea and respiratory abnormalities R06.00; R06.89 Anxiety F41.9 Weakness generalized R53.1 Advanced care planning/counseling discussion Z71.89 Palliative care by specialist Z51.5 Additional Codes Advanced Care Planning - 83225 Advanced Care Planning 30 Min: 22842 Advanced Care Planning 30 Min ([id number]) Advanced Care Planning - 65555 Advanced Care Planning Additional 30 Min: 05910 Advanced Care Planning Additional 30 Min ([id number]) Comment [id number], [id number]
[2024-10-23 17:28] LABS: Ferritin 89.1 ng/ml (8-388)
[2024-10-23 17:48] LABS: Hep B Surface Ag with confirm Negative (Negative)
[2024-10-23] MEDS ORDERED: SODIUM PHOSPHATE 3 MMOL/1 ML INFUSION IV STA (17:52)
[2024-10-23 17:56] LABS: Hep C Ab Rflx HepCQuant RNA Negative (Negative)
[2024-10-23 18:00] LABS: Hepatitis B Surface Ab Quant < 3.00 mIU/mL (>or=10mIU/mL Immune); Hepatitis B Surface Antibody Non-Immune
[2024-10-23] MEDS: SODIUM PHOSPHATE 12 MMOL in SODIUM CHLORIDE 0.9% 250 ML IV ONE (20:54)
[2024-10-24 06:03] LABS: Eosinophils # (auto) 0.01 K/uL (0.00-0.50); Eosinophils % (auto) 0.1 %; Hematocrit (blood only) 24.3 % (37.0-47.0); Immature Granulocytes # (auto) 0.03 K/uL (0.01-0.20); Immature Granulocytes % (auto) 0.4 %; Lymphocytes # (auto) 0.99 K/uL (1.20-3.40); Lymphocytes % (auto) 13.6 %; Mean Corpuscular Hemoglobin 28.2 pg (25.0-34.0); Mean Corpuscular Hgb Conc 32.9 g/dL (32.0-36.0); Mean Corpuscular Volume 85.6 fL (80.0-100.0); Mean Platelet Volume 11.8 fL (9.4-12.4); Monocytes # (auto) 0.55 K/uL (0.11-0.59); Monocytes % (auto) 7.6 %; Neutrophils % (auto) 78.3 %; Platelet Count 154 K/uL (130-400); RDW Coefficient of Variation 15.7 % (11.5-14.5); RDW Standard Deviation 48.5 fL (36.4-46.3); Red Blood Count 2.84 M/uL (4.20-5.40); White Blood Count 7.28 K/ul (4.8-10.8)
[2024-10-24 06:17] LABS: Albumin Globulin Ratio 0.9 (0.9-2); Albumin Level 2.8 gm/dl (3.4-5.0); BUN Creatinine Ratio 28.1 (10-20); Bilirubin,Total 0.9 mg/dl (0.2-1.0); Calcium 8.2 mg/dl (8.6-10.3); Creatinine Clr Calc Pharmacy 62.6 ml/min; Globulin 3.1 gm/dl (2.5-4.0); Magnesium 1.9 mg/dl (1.7-2.4); Phosphorus 2.2 mg/dl (2.5-4.9); Potassium 3.8 mmol/L (3.5-5.1); Total Protein 5.9 gm/dl (6.0-8.3)
[2024-10-24 06:18] LABS: Prothrombin Time 20.1 Seconds (9.0-12.0)
[2024-10-24] MEDS ORDERED: SODIUM PHOSPHATE 3 MMOL/1 ML INFUSION IV STA (08:47)
[2024-10-24] MEDS: LORazepam 2 MG/1 ML VIAL IV PRN (09:35)
[2024-10-24] MEDS: IRON SUCROSE 200 MG in SODIUM CHLORIDE 0.9% 100 ML IV ONE (09:36)
[2024-10-24] MEDS: POT PHOSPHATE MONOBASIC W/ SOD TAB PO SCH (09:36)
--- NOTE | 2024-10-24 09:48 | Pharmacy Report ---
Pharmacy Glycemic Short Note 2 - Date of Service October 24, 2024 - Glycemic Short BSG Results (Last 24 hours): 10/23/24 10/23/24 10/23/24 11:28 16:16 20:01 Glucose POC Glucose 255 H 220 H 211 H 10/24/24 10/24/24 05:17 07:35 Glucose 212 H POC Glucose 259 H OUTPATIENT ANTIDIABETIC REGIMEN: * A1c 12.2% 09/06/24 * Metformin 1000mg BID * Ozempic 2mg weekly (Sundays) * Aspart/Novolog via Medtronic 780G insulin pump * Basal: * 5749-5356: 8 units/hr * 5488-3965: 8 units/hr * 3974-5779: 8.9 units/hr * Total: 202.8 units Bolus: ISF: 10 ICR: 5 but uses preset dosing of 25 units with breakfast, 25 + 20 units with lunch, 25 + 15 units with supper BG Target: 100-140 Estimated TDD: ~325-350 units Actual TDD: 210.475 units Basal: 155.6 units (74%) Bolus: 54.8 units (26%) ASSESSMENT: 10/24/24 * Patient required a total of 179 units of insulin yesterday (90 units were basal and 89 units were bolus). * BSGs were still significantly above goal range yesterday (363-136-351-211mg/dL) despite adjustments made yesterday. Will increase HS Lantus scale (0,10,or 20 units depending on BSG) * Fasting BSG was 259mg/dL and lunch was 179mg/dL. BSGs are trending down so will continue bolus insulin parameters as ordered. 10/23/24: * Blood sugars elevated post insulin gtt transition yesterday and into today * Will allow for slightly increased basal insulin today and will tighten carb ratio * Plan is to transition back to insulin pump prior to discharge 10/22/24: * Patient admitted with hyperglycemia requiring insulin infusion and E. coli bacteremia. * AG closed this morning. Patient was discussed on multidisciplinary rounds and the decision was made to attempt a drip transition, despite high insulin infusion rate (14 units/hr). Patient was given a once time dose of lantus and the infusion as successfully turned off after 3 hours of overlap at 3pm. Patient was also ordered a diet with lunch. * Lantus scale ordered for this evening. Patient previously has required large doses of insulin and given high rate of insulin infusion, patient may experience some hyperglycemia this evening. Will monitor BSGs off of the drip and adjust basal/bolus dosing accordingly. PLAN FOR INPATIENT GLYCEMIC CONTROL: * Hold outpatient oral diabetes medications * Basal insulin * Lantus 80 units SC q AM * Lantus 0, 10, or 20 units SC HS (BSG < 140 mg/dL hold, BSG 140-200 10 units, BSG > 200 20 units) * Bolus insulin * NovoLog per scale ACHS or Q6hrs while NPO * Goal Range: Low 110 mg/dL - High 140 mg/dL * Correction Factor: 15 mg/dL/unit * Nutritional / Prandial insulin per carb ratio of 1 unit per 3 grams CHO consumed
[2024-10-24 10:01] LABS: Folate (Folic Acid),Ser orPlas 14.75 ng/ml (>5.38)
[2024-10-24] MEDS ORDERED: Nursing to Pharmacy Communication SCH (10:30)
--- NOTE | 2024-10-24 10:35 | Hospitalist Progress Note ---
Date of Service October 24, 2024 Assessment & Plan (1) Severe sepsis: (2) Acute hypoxic respiratory failure: (3) DKA, type 2: (4) Lactic acidosis: (5) Chronic atrial fibrillation: (6) Supratherapeutic INR: (7) Elevated troponin: Plan Ms. 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 Admitted with severe sepsis with presumed urinary source. Pt with multiple recent admissions: Admitted 09/06-09/11 COPD exac 09/07 RSV. Admitted 09/26-10/08 2/ acute hypoxic resp failure in setting of CHF Exacerbation Suspected Severe sepsis, borderline Septic Shock Lactic acidosis at this time unknown source of sepsis Resp biofire negative Chest XR and chest CT unremarkable Procalcitonin elevated UA suggestive of infection, Urine Cx NGTD Blood Cx x 2 sets from admission currently growing E coli. Pt with worsening leukocytosis on 10/23. Increased work of breathing. Repeat chest XRAY noting Given complicated picture with worsening leukocytosis, repeat blood cultures ordered received broad spectrum IV antibiotics with Vanco/Cefepime--transitioned to Ceftriaxone before transitioning to Zosyn once more on 10/23 for additional anaerobic coverage with increased work of breathing. ?aspiration Infectious Disease consulted, appreciate recs Palliative Care consulted, appreciate recs Continue to monitor Acute hypoxic respiratory failure Possible interstitial Edema Noted on repeat chest XRAY overnight on 10/23 Received IV Lasix 40mg on 10/23 Monitor Is and Os Pulmonology consulted, appreciate recs Severe Panic Attacks Pt with severe panic attacks with body shakes, trouble breathing, asking for bipap Relief after prn Ativan Psych consulted, appreciate further recs Continue with Ativan prn DKA uncontrolled T2DM insulin dependent on insulin pump Diabetic polyneuropathy ABG pH normal, but pt with anion gap, low bicarb, hyperglycemic Insulin gtt protocol initiated in ED serial labs, accuchecks last a1c 12.2 in September glycemic pharmacy consult Hypermagnesemia Hyperkalemia Slight elevation, continue to monitor Improved Hypophosphatemia replete as needed Chronic atrial fibrillation Supratherapeutic INR CAD hx of torsades de pointes hold warfarin, no evidence of bleeding Follow INR and resume as able INR 2.0 on 10/24, warfarin restarted COPD does not appear in overt exacerbation duonebs scheduled Cirrhosis Noted on CT abd/pelvis US abdomen ordered on 10/23 with concern for volume overload GI consulted, appreciate recs Diet: DMII, low potassium DVT ppx: Supratherapeutic INR, warfarin on hold, follow INR Dispo: PT/OT for further recs once medically stable Admission and Anticipated Discharge Date Admission Date: October 21, 2024 Subjective pt seen multiple times through out the day Severe panic attack causing shaking and need for Bipap Improvement after a total of Ativan 0.5 mg at bedside Review of Systems Review of Systems: All systems reviewed & are unremarkable except as noted in Subjective Physical Exam Physical Exam: General: Alert, orientedx2. HEENT: NC/AT CV: RRR Resp: Breath sounds clear bilaterally, no increased effort of breathing Abdomen: Soft, nontender Extremities: No edema in lower extremities bilaterally. Results & Data Results & Data Vital Signs (Past 12 Hours) Vital Signs Temp Pulse Pulse Resp BP Pulse Ox O2 Del Method 10/24/24 07:43 37.0 C 111 H 18 125/65 96 Nasal Cannula 10/24/24 06:58 93 H 21 91 10/24/24 06:58 93 H 21 91 BiPAP 10/24/24 05:19 90 20 93 10/24/24 03:27 36.7 C 101 H 18 138/76 95 Nasal Cannula, CPAP 10/24/24 00:00 100 H 21 93 BiPAP 10/23/24 23:21 36.9 C 90 18 130/68 96 CPAP FiO2 10/24/24 07:43 10/24/24 06:58 30 10/24/24 06:58 30 10/24/24 05:19 30 10/24/24 03:27 10/24/24 00:00 30 10/23/24 23:21
[2024-10-24] MEDS: LORazepam 2 MG/1 ML VIAL IV ONE (10:50)
--- NOTE | 2024-10-24 10:50 | XRay Report ---
XR chest 1V portable CLINICAL HISTORY: SOB COMPARISON STUDY: 10/23/2024 FINDINGS: There are mitral valvular calcifications. There is stable cardiomegaly with pulmonary vascu lar congestion. There is interval mild stranding at the right lung base. No other consolidation or pl eural effusion. No pneumothorax. IMPRESSION: 1. Mild CHF without pleural effusion. 2. Atelectasis versus early pneumonia right lung base. ACT 112: Negative or not required by law. Electronically signed by: Marcial Aaron M.D. 10/24/2024 10:48 AM
[2024-10-24 10:56] LABS: Base Excess VBG 1.7 mEq/L; HCO3 VBG 24 mmol/L; Oxygen Saturation VBG 91.3 %; PCO2 VBG 32 mmHg (38-50); PO2 VBG 54 mmHg; pH VBG 7.49 (7.36-7.41)
[2024-10-24 11:10] LABS: Hemoglobin 8.6 g/dl (12.0-16.0); Mean Corpuscular Hemoglobin 28.2 pg (25.0-34.0); Mean Corpuscular Hgb Conc 33.1 g/dL (32.0-36.0); Mean Corpuscular Volume 85.2 fL (80.0-100.0); Mean Platelet Volume 11.7 fL (9.4-12.4); Platelet Count 165 K/uL (130-400); RDW Coefficient of Variation 15.6 % (11.5-14.5); RDW Standard Deviation 49.1 fL (36.4-46.3); Red Blood Count 3.05 M/uL (4.20-5.40); White Blood Count 6.78 K/ul (4.8-10.8)
[2024-10-24 11:41] LABS: Basophils # (auto) 0.01 K/uL (0.00-0.20); Basophils % (auto) 0.1 %; Immature Granulocytes # (auto) 0.02 K/uL (0.01-0.20); Immature Granulocytes % (auto) 0.3 %; Lymphocytes # (auto) 0.29 K/uL (1.20-3.40); Lymphocytes % (auto) 4.3 %; Monocytes % (auto) 1.5 %; Neutrophils # (auto) 6.36 K/uL (1.40-6.50); Neutrophils % (auto) 93.8 %
[2024-10-24 11:42] LABS: D Dimer 1930 ug/L FEU (0-500)
[2024-10-24 12:10] LABS: Albumin Level 3.1 gm/dl (3.4-5.0); BUN Creatinine Ratio 24.7 (10-20); Bilirubin,Total 1.3 mg/dl (0.2-1.0); Calcium 8.4 mg/dl (8.6-10.3); Creatinine Clr Calc Pharmacy 62.6 ml/min; Magnesium 1.7 mg/dl (1.7-2.4); Phosphorus 1.5 mg/dl (2.5-4.9); Potassium 3.6 mmol/L (3.5-5.1); Total Protein 6.1 gm/dl (6.0-8.3); Troponin I High Sensitivity 463.2 pg/ml (0-14)
[2024-10-24] MEDS ORDERED: POTASSIUM PHOS 3 MMOL/1 ML INFUSION IV STA (12:15)
[2024-10-24] MEDS: POTASSIUM PHOSPHATE 15 MMOL in SODIUM CHLORIDE 0.9% 250 ML IV ONE (13:23)
[2024-10-24] MEDS: OPTIRAY 320 125ml IV ONE (13:56)
--- NOTE | 2024-10-24 14:22 | CT Scan Report ---
CT ANGIOGRAPHY OF THE CHEST, PULMONARY EMBOLUS PROTOCOL CLINICAL HISTORY: Shortness of breath. Evaluate for pulmonary embolus. COMPARISON STUDY: Chest CT October 21, 2014. Chest radiograph performed earlier today. TECHNIQUE: Following IV administration of 112 mL of Optiray, helical axial images of the chest were o btained utilizing the pulmonary embolus protocol. Maximal intensity projections and sagittal and cor onal reformats were viewed on an independent 3D workstation. IV contrast was administered without co mplication. Automated exposure control was utilized for the study. A dose lowering technique was ut ilized adhering to the principles of ALARA. CT DOSE: 887.26 mGy.cm FINDINGS: This exam is moderately compromised by respiratory motion. There are several linear fillin g defects within bilateral lower lobe pulmonary arteries. In retrospect, these were present on prior CT. These favor chronic pulmonary emboli. No definite acute pulmonary emboli are identified. Moderate dilatation of the central pulmonary arteries is noted. There is extensive calcification of the thora cic aorta without thoracic aortic dissection. Is extensive coronary calcification. The heart is moder ately enlarged. There is no pericardial effusion. No thoracic lymphadenopathy. There are postoperativ e findings within the left breast. Small right and trace left pleural effusions are present. There is interlobular septal thickening. Mild groundglass opacities within lungs are present. There is no con solidation to suggest pneumonia. The liver is cirrhotic. The spleen is mildly enlarged. IMPRESSION: 1. Exam moderately compromised by respiratory motion. No acute pulmonary emboli identified although s egmental and subsegmental pulmonary arteries suboptimally assessed. 2. 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 Dilatation of the central pulmonary arteries suggestive of pulmonary arterial h ypertension. 3. Cardiomegaly with moderate interstitial edema and small right and trace left pleural effusions. 4. Cirrhotic liver. Mild splenomegaly. ACT 112: Negative or not required by law. Electronically signed by: Reese Nelson M.D. 10/24/2024 2:20 PM
--- NOTE | 2024-10-24 15:14 | Infectious Disease Consult ---
Date of Service October 24, 2024 This is a 74 y/o female w/ a hx of poorly controlled IDDM2, polyneuropathy, chronic HfpEF, HTN, COPD, A fib on coumadin and breast CA, who presented to [facility] on 10/21/24 for worsening SOB x several days. The patient was recently hospitalized for COPD exacerbationa w/ RSV infection and then CHF in 09/2024. She was found to have sepsis (fever on admission) w/ DKA and E coli bacteremia (10/21: 4 out of 4, R to amp/sulb and bact, S to rest). UA showed WBC 11-20. Urine cx collected at 16:11 on 10/21: no growth. Repeat blood cultures (10/23): NGTD. CT C/A/P unremarkable except for cholelithiasis, cirrhosis and splenomegaly. AST 44 and ALT 173 on admission but normalized now. ABX Zosyn 10/23- QTc 504 Assessment: Sepsis E coli bactermia of unclear etiology DKA Hx of poorly controlled IDDM2, polyneuropathy, chronic HFpEF, COPD, A fib on coumadin Recommendations: - Stop zosyn - Start ceftriaxone 2 gm iv qd to continue while inpatient - Switch cefuroxime axetil 500 mg po bid complete total 14 days from 10/24 to 11/06/24 - ID signing off The source of the E coli bactermia is unclear but there is no obvious indication/findings that require a long duration of abx therapy. Given QTc ~500, I recommend to avoid fluoroquinolones. Given the susceptibility pattern, I recommend to use CTX while inpatient w/ a plan to transition to oral 2nd generation cephalosporin. I saw and evaluated the patient today. I have reviewed the trainee note and agree. Telehealth Information I performed this visit using a real-time telehealth connection between my location and the patients location ([facility]). After connecting through interactive tele-video, patient was identified by name and date of and/or wristband check.Patient (or authorized healthcare dental detail representative) was informed that this was a telemedicine visit and it was being conducted confidentially over secure lines. My office door was closed and no one else was present in the room with me.Patient (or authorized healthcare dental detail representative) provided consent to proceed with the visit, expressed an under standing of privacy and security of the telemedicine visit, and gave permission to have a hospital dental detail representative in the room in order to assist with the visit and to conduct portions of the visit, as needed. I informed the patient (or authorized healthcare dental detail representative) that I reviewed their record and presented the opportunity for them to ask any questions regarding the visit today. The patient agreed to participate. Assessment & Plan (1) E coli bacteremia: (2) Septic shock: Plan Patient with E coli bacteremia of unclear source, possibly translocation from gut however curious of the high-grade 4/4 bottles positive. She does have significant hardware in her body however she has no significant complaints and do not suspect infections at the sites. Currently she overall feels well, is improved however does have continued fevers. Reasonable to continue to follow the currently repeated blood cultures. For now would deescalate back to ceftriaxone as patient is isolates were sensitive without any other acute ongoing pathologies. - Discontinue Zosyn - ceftriaxone IV 2 g q.day while inpatient, upon discharge can transitioned to cefuroxime 500 mg p.o. twice daily to complete a total of 14 days with last day 11/06/24. Appreciate consultation, Infectious Disease will sign off at this time. please do not hesitate to reach out for any further questions or concerns. Omid Myrick MD PGY5 Infectious Disease History of Present Illness History of Present Illness 74-year-old female uncontrolled DM2, Afib on warfarin, COPD, breast ca presented to ER with SOB, hypotension. Shock was found to be multifactorial. Chest CT, U rine culture unremarkable. Afebrile throughout stay however today spike of 39.4, WBC currently normal, yesterday 22. Blood cultures on admission 11/[address] abd/pelvis without acute findings. Did identify liver cirrhosis, splenomegaly and cholelithiasis. Initially ceftriaxone, transition to zosyn currently day 3, repeat blood cultures obtained. Echo 10/22 without abnormalities. Review of Imaging does reveal cervical vertebral hardware. she also endorses right knee and right ankle hardware however no significant neck pain, knee pain, ankle pain. Allergies Allergy/AdvReac Type Severity Reaction Status Date / Time alendronate sodium Allergy Severe DIFFICULTY Verified 10/21/24 15:12 BREATHING/BURNING SENSATION esomeprazole Allergy Intermediate Hives Verified 10/21/24 15:12 Home Medications Medication Instructions Recorded Confirmed Type albuterol sulfate 90 mcg/actuation 2 puff inhalation QID PRN 01/12/20 10/21/24 History aerosol inhaler (Ventolin HFA) Shortness Of Breath Or Wheezing fluticasone propionate 50 2 spray intranasal QAM 01/12/20 10/21/24 History mcg/actuation nasal spray,suspension (Flonase Allergy Relief) metformin 1,000 mg tablet 1,000 mg PO BIDM 01/12/20 10/21/24 History nitroglycerin 0.3 mg sublingual 0.3 mg sublingual .PRN/UD PRN 01/12/20 10/21/24 History tablet (Nitrostat) Chest Pain warfarin 5 mg tablet 5 mg PO MOWEFRSA@1600 01/12/20 10/21/24 History cholecalciferol (vitamin D3) 25 1,000 unit PO QAM #30 caps 01/19/20 10/21/24 Rx mcg (1,000 unit) capsule multivitamin (Daily-Moiz tablet) 1 tab PO QAM #30 tabs 01/19/20 10/21/24 Rx cyanocobalamin (vitamin B-12) 1,000 mcg sublingual DAILY 09/21/22 10/21/24 History 1,000 mcg sublingual tablet aspirin 81 mg tablet,delayed 81 mg PO QAM 11/15/23 10/21/24 History release insulin aspart U-100 100 unit/mL See Rx Instructions .Route .COMPLEX 11/15/23 10/21/24 History subcutaneous solution (Novolog U-100 Insulin aspart) isosorbide mononitrate 60 mg 60 mg PO QAM 11/15/23 10/21/24 History tablet,extended release 24 hr rosuvastatin 20 mg tablet 20 mg PO QAM 11/15/23 10/21/24 History potassium chloride 20 mEq 20 meq PO 3XWK #30 tabs 11/17/23 10/21/24 Rx tablet,extended release famotidine 40 mg tablet 40 mg PO DAILY 09/05/24 10/21/24 History furosemide 20 mg tablet 20 mg PO QAM #30 tabs 10/08/24 10/21/24 Rx metoprolol succinate 25 mg 12.5 mg (1/2 x 25 mg) PO QAM #15 10/08/24 10/21/24 Rx tablet,extended release 24 hr tabs warfarin 5 mg tablet 10 mg PO SUTUTH@1600 10/21/24 10/21/24 History Patient History Medical History Benign neoplasm of colon Osteoarthritis History of DVT (deep vein thrombosis) "RLE x 2 in 1980s" 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) "Abnormal left breast mammogram 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 Estrogen receptor positive and progesterone receptor positive Status post lumpectomy with sentinel lymph node biopsy stage [id number] 04/07/2015 Status post completion of radiation therapy 07/21/2015 received 6640 cGy" On 07/25/15 17:54 Jayleen Bates wrote "Abnormal left breast mammogram 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 Estrogen receptor positive and progesterone receptor positive Status post lumpectomy with sentinel lymph node biopsy stage [id number] 04/07/2015 Status post completion of radiation therapy 07/21/2015 received 6640 cGy" On 07/25/15 17:49 Jayleen Bates wrote "Abnormal left breast mammogram 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 Estrogen receptor positive and progesterone receptor positive Status post lumpectomy with sentinel lymph node biopsy stage [id number] 04/07/2015" Surgical History H/O partial mastectomy "left breast 04/2015 with lymph node biopsy" H/O arthroscopic knee surgery H/O colonoscopy History of carpal tunnel surgery S/P cervical spinal fusion S/P dilation and curettage H/O vein stripping Family History Other Breast cancer Diabetes Heart disease Social History Smoking Status: Former smoker Tobacco Type: Cigarettes Second Hand Exposure: No; Do You Dip or Chew Tobacco: No; Hx Alcohol Use: No Hx Substance Use: No Preferred Language: Beninese Communication Ability: Effective Surgical Instrument Mechanic Required: No Beliefs That Will Affect Care: None Current Living Situation: Family Current Living Situation Comment: lives at home with and step-son Other Information That Helps Us Care for You: No Feels Safe at Home: Yes Safety Concerns: Feels Safe At This Time Assistive Devices: Nebulizer, Walker and Other Review of Systems CONSTITUTIONAL: Denies weight loss, fever and chills. HEENT: Denies changes in vision and hearing. RESPIRATORY: Denies SOB and cough. CV: Denies palpitations and CP. GI: Denies abdominal pain, nausea, vomiting and diarrhea. : Denies dysuria and urinary frequency. MSK: Denies myalgia and joint pain. SKIN: Denies rash and pruritus. NEUROLOGICAL: Denies headache and syncope PSYCHIATRIC: Denies recent changes in mood. Denies anxiety and depression. Physical Exam GENERAL: Appears as stated age. No acute distress. NEUROLOGIC: No focal neurological deficits. Cranial nerves grossly intact. Results & Data Vital Signs (Past 12 Hours) Vital Signs Temp Pulse Pulse Resp BP Pulse Ox O2 Del Method 10/24/24 14:07 118 H 10/24/24 13:43 100 H 22 94 Nasal Cannula 10/24/24 12:44 38.2 C H 10/24/24 12:00 Nasal Cannula 10/24/24 11:13 39.4 C H 121 H 22 106/67 95 CPAP 10/24/24 07:43 37.0 C 111 H 18 125/65 96 Nasal Cannula 10/24/24 06:58 93 H 21 91 10/24/24 06:58 93 H 21 91 BiPAP 10/24/24 05:19 90 20 93 10/24/24 03:27 36.7 C 101 H 18 138/76 95 Nasal Cannula, CPAP O2 Flow Rate FiO2 10/24/24 14:07 10/24/24 13:43 2 10/24/24 12:44 10/24/24 12:00 2 10/24/24 11:13 10/24/24 07:43 10/24/24 06:58 30 10/24/24 06:58 30 10/24/24 05:19 30 10/24/24 03:27 Laboratory Results 10/23/24 09:12 Aerobic Blood Culture - Preliminary Blood No growth in Aerobic bottle after 24 hours. Anaerobic Blood Culture - Pending 10/23/24 09:12 Aerobic Blood Culture - Preliminary Blood No growth in Aerobic bottle after 24 hours. Anaerobic Blood Culture - Pending 10/24/24 10/24/24 10/24/24 11:11 10:44 07:35 WBC 6.78 RBC 3.05 L Hgb 8.6 L Hct 26.0 L MCV 85.2 MCH 28.2 MCHC 33.1 RDW Std Deviation 49.1 H RDW Coeff of Katrin 15.6 H Plt Count 165 MPV 11.7 Immature Gran % (Auto) 0.3 Neut % (Auto) 93.8 Lymph % (Auto) 4.3 Bee % (Auto) 1.5 Eos % (Auto) 0.0 Baso % (Auto) 0.1 Neut # (Auto) 6.36 Lymph # (Auto) 0.29 L Bee # (Auto) 0.10 L Eos # (Auto) 0.00 Baso # (Auto) 0.01 Immature Gran # (Auto) 0.02 PT INR D-Dimer 1930 H* VBG pH 7.49 H VBG pCO2 32 L VBG pO2 54 VBG HCO3 24 VBG O2 Saturation 91.3 VBG Base Excess 1.7 Sodium 138 Potassium 3.6 Chloride 104 Carbon Dioxide 25 Anion Gap 9 BUN 22 Creatinine 0.89 Est Cr Clr Drug Dosing 62.6 eGFR 67.57 BUN/Creatinine Ratio 24.7 H Glucose 177 H POC Glucose 179 H 259 H Calcium 8.4 L Phosphorus 1.5 L* Magnesium 1.7 Iron TIBC Transferrin Transferrin % Sat Ferritin Total Bilirubin 1.3 H AST 34 ALT 21 Alkaline Phosphatase 129 H Troponin I High Sens 463.2 H* B-Natriuretic Peptide Total Protein 6.1 Albumin 3.1 L Globulin 3.0 Albumin/Globulin Ratio 1.0 Vitamin B12 Folate Hep Bs Antigen Hep Bs Antibody Hep Bs Antibody, Quant Hepatitis C Antibody 10/24/24 10/23/24 10/23/24 05:17 20:01 16:16 WBC 7.28 RBC 2.84 L Hgb 8.0 L Hct 24.3 L MCV 85.6 MCH 28.2 MCHC 32.9 RDW Std Deviation 48.5 H RDW Coeff of Katrin 15.7 H Plt Count 154 MPV 11.8 Immature Gran % (Auto) 0.4 Neut % (Auto) 78.3 Lymph % (Auto) 13.6 Bee % (Auto) 7.6 Eos % (Auto) 0.1 Baso % (Auto) 0.0 Neut # (Auto) 5.70 Lymph # (Auto) 0.99 L Bee # (Auto) 0.55 Eos # (Auto) 0.01 Baso # (Auto) 0.00 Immature Gran # (Auto) 0.03 PT 20.1 H INR 2.0 H D-Dimer VBG pH VBG pCO2 VBG pO2 VBG HCO3 VBG O2 Saturation VBG Base Excess Sodium 136 Potassium 3.8 D Chloride 107 Carbon Dioxide 25 Anion Gap 4 BUN 25 H Creatinine 0.89 Est Cr Clr Drug Dosing 62.6 eGFR 67.57 BUN/Creatinine Ratio 28.1 H Glucose 212 H POC Glucose 211 H 220 H Calcium 8.2 L Phosphorus 2.2 L Magnesium 1.9 Iron 28 L TIBC 319 Transferrin 228 Transferrin % Sat 9 L Ferritin Total Bilirubin 0.9 AST 25 ALT 17 Alkaline Phosphatase 85 Troponin I High Sens B-Natriuretic Peptide Total Protein 5.9 L Albumin 2.8 L Globulin 3.1 Albumin/Globulin Ratio 0.9 Vitamin B12 693 Folate 14.75 Hep Bs Antigen Hep Bs Antibody Hep Bs Antibody, Quant Hepatitis C Antibody 10/23/24 10/23/24 10/23/24 14:26 09:12 05:30 WBC RBC Hgb Hct MCV MCH MCHC RDW Std Deviation RDW Coeff of Katrin Plt Count MPV Immature Gran % (Auto) Neut % (Auto) Lymph % (Auto) Bee % (Auto) Eos % (Auto) Baso % (Auto) Neut # (Auto) Lymph # (Auto) Bee # (Auto) Eos # (Auto) Baso # (Auto) Immature Gran # (Auto) PT INR D-Dimer VBG pH VBG pCO2 VBG pO2 VBG HCO3 VBG O2 Saturation VBG Base Excess Sodium Potassium Chloride Carbon Dioxide Anion Gap BUN Creatinine Est Cr Clr Drug Dosing eGFR BUN/Creatinine Ratio Glucose POC Glucose Calcium Phosphorus Magnesium Iron TIBC Transferrin Transferrin % Sat Ferritin 89.1 Total Bilirubin AST ALT Alkaline Phosphatase Troponin I High Sens B-Natriuretic Peptide 1090 H Total Protein Albumin Globulin Albumin/Globulin Ratio Vitamin B12 Folate Hep Bs Antigen Negative Hep Bs Antibody Non-Immune Hep Bs Antibody, Quant < 3.00 Hepatitis C Antibody Negative Diagnostic Findings Chest X-Ray 10/21/24 14:02 XR chest 1V portable CLINICAL HISTORY: Sepsis COMPARISON STUDY: 10/05/2024 FINDINGS: There are mitral valvular calcifications. There is stable moderate cardiomegaly without pulmonary vascular congestion. No effusion, consolidation, or pneumothorax. IMPRESSION: No acute findings. ACT 112: Negative or not required by law. Electronically signed by: Marcial Araon M.D. 10/21/2024 2:[address] 10/21/24 16:24 INDICATION: Shortness of breath. Abdominal pain. COMPARISON: No relevant priors available. TECHNIQUE: Axial CT images of the chest, abdomen and pelvis were obtained. Postcontrast CT chest images. Pre and postcontrast CT abdomen pelvis images obtained. Coronal and sagittal reformations were reviewed. FINDINGS: Chest: The thoracic aorta appears normal in caliber. The heart is mildly enlarged. No pericardial or pleural effusion. No pneumothorax. No pathologically enlarged mediastinal or hilar lymph nodes. No pulmonary consolidation. No acute osseous abnormality evident. Abdomen and pelvis: Gallstones in the gallbladder. The liver is cirrhotic. No hepatic mass identified. Mild splenomegaly. This pancreas and adrenal glands appear unremarkable. No hydronephrosis. A few small renal cysts noted. No renal calculus. No evidence of bowel obstruction/colitis/appendicitis. No free air. No drainable fluid collection. Negative for abdominal aortic aneurysm or dissection. There is a Cisneros catheter in the urinary bladder. No acute osseous abnormality evident. IMPRESSION: 1. No acute process in the chest. 2. Cirrhosis. 3. Splenomegaly. 4. Cholelithiasis. Electronically signed by Sarath Ray 10-21-2024 6:04 PM Abdomen/Pelvis CT 10/21/24 17:06 INDICATION: Shortness of breath. Abdominal pain. COMPARISON: No relevant priors available. TECHNIQUE: Axial CT images of the chest, abdomen and pelvis were obtained. Postcontrast CT chest images. Pre and postcontrast CT abdomen pelvis images obtained. Coronal and sagittal reformations were reviewed. FINDINGS: Chest: The thoracic aorta appears normal in caliber. The heart is mildly enlarged. No pericardial or pleural effusion. No pneumothorax. No pathologically enlarged mediastinal or hilar lymph nodes. No pulmonary consolidation. No acute osseous abnormality evident. Abdomen and pelvis: Gallstones in the gallbladder. The liver is cirrhotic. No hepatic mass identified. Mild splenomegaly. This pancreas and adrenal glands appear unremarkable. No hydronephrosis. A few small renal cysts noted. No renal calculus. No evidence of bowel obstruction/colitis/appendicitis. No free air. No drainable fluid collection. Negative for abdominal aortic aneurysm or dissection. There is a Cisneros catheter in the urinary bladder. No acute osseous abnormality evident. IMPRESSION: 1. No acute process in the chest. 2. Cirrhosis. 3. Splenomegaly. 4. Cholelithiasis. Electronically signed by Sarath Ray 10-21-2024 6:04 PM Chest X-Ray 10/23/24 03:57 EXAM: XR chest 1V portable CLINICAL HISTORY: SOB. TECHNIQUE: An X-ray image of the chest is obtained in AP projection. COMPARISON: 10/21/2024 X-RAY and CT. FINDINGS: Pulmonary Parenchyma: Diffuse bilateral interstitial thickening, reticulations, and nodularity, may represent interstitial edema, however, early infection couldn't excluded. nearly stable No evidence of consolidation, collapse, or focal opacities. No pulmonary nodules are identified. Interval new opacification of the right lower lung zone may be positional. Heart and Mediastinum: Enlarged cardiac size with bilateral hilar vascular congestion noted. No mediastinal widening or masses. No hilar or mediastinal lymphadenopathy. Bony Thorax: The bony thorax appears intact without fractures or deformities. Soft Tissues: Soft tissues overlying the chest wall are unremarkable. IMPRESSION: 1. Diffuse bilateral interstitial thickening, reticulations, and nodularity, may represent interstitial edema, however, early infection couldn't excluded. nearly stable 2. Interval new opacification of the right lower lung zone may be positional. 3. Cardiomegaly was unchanged. Electronically signed by Benji López 10-23-2024 05:02 AM Abdomen Ultrasound 10/23/24 08:54 abdomen ltd ascites CLINICAL HISTORY: cirrhosis, volume overload, r/o ascites COMPARISON STUDY: CT of 10/21/2024 FINDINGS: 4 quadrants of the abdomen were examined with ultrasound. No ascites seen. IMPRESSION: No ascites seen. ACT 112: Negative or not required by law. Electronically signed by: Marcial Aaron M.D. 10/23/2024 10:17 AM Chest X-Ray 10/24/24 10:13 XR chest 1V portable CLINICAL HISTORY: SOB COMPARISON STUDY: 10/23/2024 FINDINGS: There are mitral valvular calcifications. There is stable cardiomegaly with pulmonary vascular congestion. There is interval mild stranding at the right lung base. No other consolidation or pleural effusion. No pneumothorax. IMPRESSION: 1. Mild CHF without pleural effusion. 2. Atelectasis versus early pneumonia right lung base. ACT 112: Negative or not required by law. Electronically signed by: Marcial Aaron M.D. 10/24/2024 10:48 AM Chest CTA 10/24/24 11:47 CT ANGIOGRAPHY OF THE CHEST, PULMONARY EMBOLUS PROTOCOL CLINICAL HISTORY: Shortness of breath. Evaluate for pulmonary embolus. COMPARISON STUDY: Chest CT October 21, 2014. Chest radiograph performed earlier today. TECHNIQUE: Following IV administration of 112 mL of Optiray, helical axial images of the chest were obtained utilizing the pulmonary embolus protocol. Maximal intensity projections and sagittal and coronal reformats were viewed on an independent 3D workstation. IV contrast was administered without complication. Automated exposure control was utilized for the study. A dose lowering technique was utilized adhering to the principles of ALARA. CT DOSE: 887.26 mGy.cm FINDINGS: This exam is moderately compromised by respiratory motion. There are several linear filling defects within bilateral lower lobe pulmonary arteries. In retrospect, these were present on prior CT. These favor chronic pulmonary emboli. No definite acute pulmonary emboli are identified. Moderate dilatation of the central pulmonary arteries is noted. There is extensive calcification of the thoracic aorta without thoracic aortic dissection. Is extensive coronary calcification. The heart is moderately enlarged. There is no pericardial effusion. No thoracic lymphadenopathy. There are postoperative findings within the left breast. Small right and trace left pleural effusions are present. There is interlobular septal thickening. Mild groundglass opacities within lungs are present. There is no consolidation to suggest pneumonia. The liver is cirrhotic. The spleen is mildly enlarged. IMPRESSION: 1. Exam moderately compromised by respiratory motion. No acute pulmonary emboli identified although segmental and subsegmental pulmonary arteries suboptimally assessed. 2. Several linear filling defects within bilateral lower lobe pulmonary arteries consistent with chronic pulmonary emboli. Dilatation of the central pulmonary arteries suggestive of pulmonary arterial hypertension. 3. Cardiomegaly with moderate interstitial edema and small right and trace left pleural effusions. 4. Cirrhotic liver. Mild splenomegaly. ACT 112: Negative or not required by law. Electronically signed by: Reese Nelson M.D. 10/24/2024 2:20 PM
--- NOTE | 2024-10-24 15:26 | Psychiatric Consultation ---
Date of Consultation October 24, 2024 Impression / Recommendations Impression Consult request for severe panic attacks. Chart reviewed, Graciela is a 74 yo woman being treated for sepsis and palliative care involved. QTC recently >500 but less today now 464ms. Hospitalist provider ordered lorazepam 0.25mg this morning and she got a dose at 9:30am and 10:50am. Given her co-occurring medical conditions and recently prolonged QTc agree that lorazepam as needed for panic attacks is the most reasonable option at this time. Anxiety likely driven by sepsis and respiratory symptoms. Caution to closely monitor respiratory status as lorazepam could potentially worsen acute hypoxic respiratory failure. Recommend ongoing close monitoring of HR, oxygenation and respiratory status if used. If symptoms persist or do not improve with lorazepam as ordered please reach out for formal psychiatry consult and additional medication options could be considered if needed. (1) Anxiety: Plan -Continue lorazepam with close monitoring as needed for panic symptoms -Psych liaisons available to offer support as needed Psych History Allergies Allergy/AdvReac Type Severity Reaction Status Date / Time alendronate sodium Allergy Severe DIFFICULTY Verified 10/21/24 15:12 BREATHING/BURNING SENSATION esomeprazole Allergy Intermediate Hives Verified 10/21/24 15:12 Home Medications Medication Instructions Recorded Confirmed Type albuterol sulfate 90 mcg/actuation 2 puff inhalation QID PRN 01/12/20 10/21/24 History aerosol inhaler (Ventolin HFA) Shortness Of Breath Or Wheezing fluticasone propionate 50 2 spray intranasal QAM 01/12/20 10/21/24 History mcg/actuation nasal spray,suspension (Flonase Allergy Relief) metformin 1,000 mg tablet 1,000 mg PO BIDM 01/12/20 10/21/24 History nitroglycerin 0.3 mg sublingual 0.3 mg sublingual .PRN/UD PRN 01/12/20 10/21/24 History tablet (Nitrostat) Chest Pain warfarin 5 mg tablet 5 mg PO MOWEFRSA@1600 01/12/20 10/21/24 History cholecalciferol (vitamin D3) 25 1,000 unit PO QAM #30 caps 01/19/20 10/21/24 Rx mcg (1,000 unit) capsule multivitamin (Daily-Moiz tablet) 1 tab PO QAM #30 tabs 01/19/20 10/21/24 Rx cyanocobalamin (vitamin B-12) 1,000 mcg sublingual DAILY 09/21/22 10/21/24 Hist ory 1,000 mcg sublingual tablet aspirin 81 mg tablet,delayed 81 mg PO QAM 11/15/23 10/21/24 History release insulin aspart U-100 100 unit/mL See Rx Instructions .Route .COMPLEX 11/15/23 10/21/24 History subcutaneous solution (Novolog U-100 Insulin aspart) isosorbide mononitrate 60 mg 60 mg PO QAM 11/15/23 10/21/24 History tablet,extended release 24 hr rosuvastatin 20 mg tablet 20 mg PO QAM 11/15/23 10/21/24 History potassium chloride 20 mEq 20 meq PO 3XWK #30 tabs 11/17/23 10/21/24 Rx tablet,extended release famotidine 40 mg tablet 40 mg PO DAILY 09/05/24 10/21/24 History furosemide 20 mg tablet 20 mg PO QAM #30 tabs 10/08/24 10/21/24 Rx metoprolol succinate 25 mg 12.5 mg (1/2 x 25 mg) PO QAM #15 10/08/24 10/21/24 Rx tablet,extended release 24 hr tabs warfarin 5 mg tablet 10 mg PO SUTUTH@1600 10/21/24 10/21/24 History Patient History Medical History Benign neoplasm of colon Osteoarthritis History of DVT (deep vein thrombosis) "RLE x 2 in 1980s" 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) "Abnormal left breast mammogram 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 Estrogen receptor positive and progesterone receptor positive Status post lumpectomy with sentinel lymph node biopsy stage [id number] 04/07/2015 Status post completion of radiation therapy 07/21/2015 received 6640 cGy" On 07/25/15 17:54 Jayleen Bates wrote "Abnormal left breast mammogram 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 Estrogen receptor positive and progesterone receptor positive Status post lumpectomy with sentinel lymph node biopsy stage [id number] 04/07/2015 Status post completion of radiation therapy 07/21/2015 received 6640 cGy" On 07/25/15 17:49 Jayleen Bates wrote "Abnormal left breast mammogram 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 Estrogen receptor positive and progesterone receptor positive Status post lumpectomy with sentinel lymph node biopsy stage [id number] 04/07/2015" Surgical History H/O partial mastectomy "left breast 04/2015 with lymph node biopsy" H/O arthroscopic knee surgery H/O colonoscopy History of carpal tunnel surgery S/P cervical spinal fusion S/P dilation and curettage H/O vein stripping Family History Other Breast cancer Diabetes Heart disease Social History Smoking Status: Former smoker Tobacco Type: Cigarettes Second Hand Exposure: No; Do You Dip or Chew Tobacco: No; Hx Alcohol Use: No Hx Substance Use: No Preferred Language: Kyrgyz Communication Ability: Effective 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 Machine 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 Required: No Beliefs That Will Affect Care: None Current Living Situation: Family Current Living Situation Comment: lives at home with and step-son Other Information That Helps Us Care for You: No Feels Safe at Home: Yes Safety Concerns: Feels Safe At This Time Assistive Devices: Nebulizer, Walker and Other Physical Exam Vital Signs (Past 24 Hours): Last Vital Signs Temp 38.2 C H 10/24/24 12:44 Pulse 118 H 10/24/24 14:07 Resp 22 10/24/24 13:43 BP 106/67 10/24/24 11:13 Pulse Ox 94 10/24/24 13:43 O2 Del Method Nasal Cannula 10/24/24 13:43 O2 Flow Rate 2 10/24/24 13:43 FiO2 30 10/24/24 06:58 Results & Data (PSY) Medications Administered Aspirin (Aspirin 81 Mg Ectab) [facility] [place] Stop: 11/21/24 08:59 Last Admin: 10/24/24 07:54 Dose: 81 mg Documented By: Admin: 10/23/24 08:52 Dose: 81 mg Documented By: Admin: 10/22/24 08:30 Dose: 81 mg Documented By: GPF Piperacillin Sod/Tazobactam Sod (Zosyn) 4.5 gm in 100 mls @ 25 mls/hr IV Q8H RAQUEL; Protocol Stop: 11/06/24 11:59 Last Admin: 10/24/24 13:22 Dose: 25 mls/hr Documented By: Infusion: 10/24/24 11:01 Dose: Infused Documented By: Admin: 10/24/24 06:35 Dose: 25 mls/hr Documented By: Infusion: 10/24/24 00:57 Dose: Infused Documented By: Admin: 10/23/24 20:57 Dose: 25 mls/hr Documented By: Infusion: 10/23/24 17:37 Dose: Infused Documented By: Admin: 10/23/24 13:48 Dose: 25 mls/hr Documented By: MADIHA Insulin Aspart (Insulin Aspart Per Unit Charge) 0 units SC ACHS RAQUEL Stop: 11/21/24 11:29 Last Admin: 10/24/24 12:01 Dose: 14 units Documented By: VIOLA Co-signed By: ZACK Admin: 10/24/24 08:30 Dose: 24 units Documented By: VIOLA Co-signed By: Admin: 10/23/24 20:34 Dose: 5 units Documented By: PK Co-signed By: CHRISTIANO Admin: 10/23/24 17:07 Dose: 31 units Documented By: MADIHA Co-signed By: EP Admin: 10/23/24 12:22 Dose: 23 units Documented By: MADIHA Co-signed By: THELMA Admin: 10/23/24 08:51 Dose: 25 units Documented By: MADIHA Co-signed By: PABLITO Admin: 10/22/24 21:24 Dose: 16 units Documented By: TYRELL Co-signed By: PIEDAD Admin: 10/22/24 17:07 Dose: 19 units Documented By: AMS Co-signed By: ALEJA Admin: 10/22/24 11:50 Dose: 8 units Documented By: RIRI Co-signed By: ALEJA Insulin Glargine (Lantus Per Unit Charge) 0 units SC HS RAQUEL; Protocol Stop: 11/21/24 20:59 Last Admin: 10/23/24 20:34 Dose: 10 units Documented By: PK Co-signed By: CHRISTIANO Admin: 10/22/24 21:24 Dose: 20 units Documented By: TYRELL Co-signed By: PIEDAD Insulin Glargine (Lantus Per Unit Charge) 80 units SC DAILY RAQUEL Stop: 11/22/24 08:59 Last Admin: 10/24/24 08:31 Dose: 80 units Documented By: VIOLA Co-signed By: Admin: 10/23/24 08:52 Dose: 80 units Documented By: MADIHA Co-signed By: PABLITO Ipratropium [place] (Ipratropium [place] Neb Soln 0.02% 0.5mg/2.5ml Vial) 0.5 mg INH Q6R RAQUEL Stop: 11/22/24 06:59 Last Admin: 10/24/24 13:42 Dose: 0.5 mg Documented By: Admin: 10/24/24 06:57 Dose: 0.5 mg Documented By: Admin: 10/24/24 00:00 Dose: 0.5 mg Documented By: Admin: 10/23/24 19:15 Dose: 0.5 mg Documented By: Admin: 10/23/24 13:36 Dose: 0.5 mg Documented By: Admin: 10/23/24 07:33 Dose: 0.5 mg Documented By: BHUPENDRA Levalbuterol HCl (Levalbuterol 1.25 Mg/3 Ml Neb) 1.25 mg NEB Q6R RAQUEL Stop: 11/22/24 06:59 Last Admin: 10/24/24 13:42 Dose: 1.25 mg Documented By: Admin: 10/24/24 06:57 Dose: 1.25 mg Documented By: Admin: 10/24/24 00:00 Dose: 1.25 mg Documented By: Admin: 10/23/24 19:15 Dose: 1.25 mg Documented By: Admin: 10/23/24 13:36 Dose: 1.25 mg Documented By: Admin: 10/23/24 07:33 Dose: 1.25 mg Documented By: BHUPENDRA Metoprolol Succinate (Metoprolol Succ 25mg Ext Rel Tab) 12.5 mg PO QAM RAQUEL Stop: 11/21/24 08:59 Last Admin: 10/24/24 07:54 Dose: 12.5 mg Documented By: Admin: 10/23/24 08:52 Dose: 12.5 mg Documented By: Admin: 10/22/24 08:30 Dose: 12.5 mg Documented By: RIRI Potassium Phosphate (Pot Phosphate Monobasic W/ Sod Tab) 1 tab PO Q8 [facility] Stop: 10/24/24 22:01 Last Admin: 10/24/24 13:22 Dose: 1 tab Documented By: Admin: 10/24/24 09:36 Dose: 1 tab Documented By: VIOLA Rosuvastatin Calcium (Rosuvastatin Calcium 20 Mg Tab) 20 mg PO QAM [facility] Stop: 11/21/24 08:59 Last Admin: 10/24/24 07:54 Dose: 20 mg Documented By: Admin: 10/23/24 08:52 Dose: 20 mg Documented By: Admin: 10/22/24 08:30 Dose: 20 mg Documented By: RIRI Coding Level of Care Code None Diagnoses Anxiety F41.9
[2024-10-24] MEDS: CARBOHYDRATES FOR HYPOGLYCEMIA PO PRN (16:30)
[2024-10-24] MEDS: WARFARIN SOD 5 MG TAB PO SCH (16:31)
--- NOTE | 2024-10-24 17:25 | Pulmonology Progress Note ---
Date of Service October 24, 2024 Assessment & Plan (1) COPD (chronic obstructive pulmonary disease): COPD type: unspecified COPD Qualified Code(s): J44.9 - Chronic obstructive pulmonary disease, unspecified (2) Acute hypoxic respiratory failure: (3) Morbid obesity: (4) Pulmonary hypertension: Plan CTA chest 10/24/2024 personally reviewed: Motion degraded study Chronic right lower as well as left lower pulmonary artery emboli Small right-sided pleural effusion. Minimal left-sided pleural effusion Cardiomegaly No significant mediastinal lymphadenopathy CT chest 10/21/2024 personally reviewed: Patchy groundglass opacities appreciated in the right upper lobe as well as left upper lobe Cardiomegaly No significant mediastinal lymphadenopathy 2D echo 10/22/2024: EF 60-65%, mild concentric LVH, mild MR, mild MS, mild TR, P ASP 46 mmHg --Acute hypoxic respiratory failure BNP 1156 on presentation Respiratory BioFire negative for everything on 10/21/2024 Nasal MRSA negative, procalcitonin 15.3 --Pulmonary hypertension A combination of type II and type III Type IV is also a possibility given the chronic pulmonary emboli --A-fib On warfarin at home --DNR/DNI --E. coli bacteremia Antibiotics as per primary team Plan: In/out: -1.3 L, urine output 2500 mL, Positive 3.3 L since coming to the hospital After I saw the patient, in the afternoon patient complained of significant shortness of breath. I was called to look at the patient's Jose Estrella was able to go and examine the patient. 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 It may contain grammatical, syntax or spelling errors.Any formal questions or concerns about the content, text or information contained within the body of this dictation should be directly addressed to the provider for clarification. Admission and Anticipated Discharge Date Admission Date: October 21, 2024 Subjective Patient seen and examined at bedside. No acute distress, no adverse events overnight At the time of examination patient was on 2 L nasal cannula she was saturating 96-97% She did use BiPAP overnight Denies any chest pain Abdominal pain No nausea vomiting Review of Systems 2 Review of Systems: All systems reviewed & are unremarkable except as noted in Subjective Physical Exam 2 Physical Exam: Constitutional: No acute distress HEENT: EOMI, PERRLA Respiratory system: Decreased air entry bilaterally, no wheeze, no rhonchi, minimal crackles bilateral lower lobes CVS: S1-S2 positive, +3 out of 6 systolic murmur appreciated best at aorta Abdomen: Soft, nontender, nondistended, positive bowel sounds x4 Extremities: +2 pulses bilaterally radialis/ dorsalis pedis, no cyanosis, +1 pitting edema bilateral lower extremity Neuro: Awake alert oriented x3 Psych: Normal mood and affect G/U: Positive Cisneros Skin: no rashes, warm and dry Lymphatic: no cervical or axillary lymphadenopathy Results & Data Results & Data Vital Signs (Past 12 Hours) Vital Signs Temp Pulse Pulse Resp BP Pulse Ox O2 Del Method 10/24/24 17:00 114/71 10/24/24 15:52 37.5 C 104 H 18 88/52 L 96 Nasal Cannula 10/24/24 14:07 118 H 10/24/24 13:43 100 H 22 94 Nasal Cannula 10/24/24 12:44 38.2 C H 10/24/24 12:00 Nasal Cannula 10/24/24 11:13 39.4 C H 121 H 22 106/67 95 CPAP 10/24/24 07:43 37.0 C 111 H 18 125/65 96 Nasal Cannula 10/24/24 06:58 93 H 21 91 10/24/24 06:58 93 H 21 91 BiPAP 10/24/24 05:19 90 20 93 O2 Flow Rate FiO2 10/24/24 17:00 10/24/24 15:52 2 10/24/24 14:07 10/24/24 13:43 2 10/24/24 12:44 10/24/24 12:00 2 10/24/24 11:13 10/24/24 07:43 10/24/24 06:58 30 10/24/24 06:58 30 10/24/24 05:19 30 Laboratory Results 10/24/24 10:44 10/24/24 10:44 PG Care Time/CCT Total # of Minutes Spent Total Time Spent with Patient: Total time spent is greater than 50% in coordination of care (as documented) at patient's floor/unit and/or counseling patient: Coding Level of Care Code 03660 SUB INP/OBS CARE 3/50MIN Diagnoses Chronic obstructive pulmonary disease, unspecified COPD type J44.9 COPD type: unspecified COPD Acute hypoxic respiratory failure J96.01 Morbid obesity E66.01 Pulmonary hypertension I27.20
[2024-10-24] MEDS: cefTRIAXone SODIUM 2,000 MG/50 ML BAG IV SCH (18:11)
--- NOTE | 2024-10-24 20:33 | Electrocardiogram Report ---
Test Reason : Blood Pressure : */* mmHG Vent. Rate : 144 BPM Atrial Rate : 144 BPM P-R Int : 144 ms QRS Dur : 84 ms QT Int : 300 ms P-R-T Axes : * 66 -52 degrees QTcB Int : 464 ms Sinus tachycardia with Premature supraventricular complexes Abnormal ECG When compared with ECG of 22-Oct-2024 16:16, Premature supraventricular complexes are now Present ST more depressed Inferior leads T wave inversion no longer evident in Lateral leads Confirmed by Isaac Man ([id number]) on 10/24/2024 8:33:36 PM Referred By: REFERRED SELF Confirmed By: Isaac Man
--- NOTE | 2024-10-25 00:15 | Ultrasound Report ---
Exam(s): US VENOUS BILATERAL LOWER EXTREMITIES EXAM: US Duplex Bilateral Lower Extremities Veins CLINICAL HISTORY: r/o DVT. TECHNIQUE: Real-time duplex ultrasound scan of the bilateral lower extremity veins integrating B-mode two-dimensional vascular structure, Doppler spectral analysis, color flow Doppler imaging and compression. COMPARISON: No relevant prior studies available. FINDINGS: Right deep veins: No DVT in the right common femoral, femoral, proximal deep femoral or popliteal veins. The veins demonstrate normal color flow, are normally compressible, with normal phasic flow and/or augmentation response. The interrogated calf veins are patent. Right superficial veins: No thrombus in the saphenofemoral junction. Left deep veins: The left common femoral vein and proximal superficial femoral vein are patent and compressible. The left mid superficial femoral vein demonstrates eccentric hyperechoic material. The distal superficial femoral vein is not well delineated. There is similar echogenic material in the left popliteal vein with incomplete compression. There is some flow in the popliteal vein with a suggestion of collateralization. The left calf veins are not well demonstrated. Left superficial veins: Unremarkable. No thrombus in the saphenofemoral junction. Soft tissues: No acute findings. No popliteal cyst. IMPRESSION: 1. Echogenic material in the mid left superficial femoral vein and popliteal veins with some internal vascular flow. Findings are most consistent with a partially occlusive thrombus. While no prior imaging is available, the appearance suggests a subacute to chronic process with partial recanalization. 2. No proximal/central extension of the left popliteal and mid to distal left superficial vein thrombus into the left common femoral vein. 3. No evidence for deep vein thrombosis involving the right lower extremity. Electronically signed by: Mayito Santoyo MD 10/25/24 00:13 AM
[2024-10-25 07:03] LABS: Basophils # (auto) 0.01 K/uL (0.00-0.20); Basophils % (auto) 0.1 %; Eosinophils # (auto) 0.01 K/uL (0.00-0.50); Eosinophils % (auto) 0.1 %; Hematocrit (blood only) 24.4 % (37.0-47.0); Immature Granulocytes # (auto) 0.04 K/uL (0.01-0.20); Immature Granulocytes % (auto) 0.4 %; Lymphocytes % (auto) 7.8 %; Mean Corpuscular Hemoglobin 28.1 pg (25.0-34.0); Mean Corpuscular Hgb Conc 32.8 g/dL (32.0-36.0); Mean Corpuscular Volume 85.6 fL (80.0-100.0); Mean Platelet Volume 11.4 fL (9.4-12.4); Monocytes # (auto) 0.72 K/uL (0.11-0.59); Neutrophils # (auto) 8.64 K/uL (1.40-6.50); Neutrophils % (auto) 84.6 %; Platelet Count 142 K/uL (130-400); RDW Coefficient of Variation 15.8 % (11.5-14.5); RDW Standard Deviation 49.7 fL (36.4-46.3); Red Blood Count 2.85 M/uL (4.20-5.40); White Blood Count 10.22 K/ul (4.8-10.8)
[2024-10-25 07:16] LABS: INR 1.6 (0.9-1.1); Prothrombin Time 16.7 Seconds (9.0-12.0)
--- NOTE | 2024-10-25 07:30 | Pulmonology Progress Note ---
Date of Service October 25, 2024 Assessment & Plan (1) COPD (chronic obstructive pulmonary disease): COPD type: unspecified COPD Qualified Code(s): J44.9 - Chronic obstructive pulmonary disease, unspecified (2) Acute hypoxic respiratory failure: (3) Morbid obesity: (4) Pulmonary hypertension: Plan CTA chest 10/24/2024 personally reviewed: Motion degraded study Chronic right lower as well as left lower pulmonary artery emboli Small right-sided pleural effusion. Minimal left-sided pleural effusion Cardiomegaly No significant mediastinal lymphadenopathy CT chest 10/21/2024 personally reviewed: Patchy groundglass opacities appreciated in the right upper lobe as well as left upper lobe Cardiomegaly No significant mediastinal lymphadenopathy 2D echo 10/22/2024: EF 60-65%, mild concentric LVH, mild MR, mild MS, mild TR, P ASP 46 mmHg --Acute hypoxic respiratory failure BNP 1156 on presentation Respiratory BioFire negative for everything on 10/21/2024 Nasal MRSA negative, procalcitonin 15.3 --Pulmonary hypertension A combination of type II and type III Type IV is also a possibility given the chronic pulmonary emboli --A-fib On warfarin at home --DNR/DNI --E. coli bacteremia Antibiotics as per primary team Plan: In/out: - 2.5 L, urine output 3100 mL, euvolemic since coming to the hospital Will give a dose of Lasix today I would recommend outpatient polysomnography for the patient She also has chronic DVT in the left lower extremity as well as chronic pulmonary emboli. She is on warfarin Recommend getting recommendations from hematology to see if that needs to be changed to something else Also recommend patient to be evaluated at a tertiary pulmonary hypertension center given the possibility of CTEPH Case was discussed with primary team as well as RN at bedside Please note the above document was generated using voice recognition software. It may contain grammatical, syntax or spelling errors.Any formal questions or concerns about the content, text or information contained within the body of this dictation should be directly addressed to the provider for clarification. Admission and Anticipated Discharge Date Admission Date: October 21, 2024 Subjective Patient seen and examined at bedside. No acute distress, no adverse events overnight She was saturating 96-97% on room air Her was also in the room She says she had a good night sleep, used BiPAP overnight Denied any nausea or vomiting Fair appetite Review of Systems 2 Review of Systems: All systems reviewed & are unremarkable except as noted in Subjective Physical Exam 2 Physical Exam: Constitutional: No acute distress HEENT: EOMI, PERRLA Respiratory system: Decreased air entry bilaterally, no wheeze, no rhonchi, minimal crackles bilateral lower lobes CVS: S1-S2 positive, +3 out of 6 systolic murmur appreciated best at aorta Abdomen: Soft, nontender, nondistended, positive bowel sounds x4, obese Extremities: +2 pulses bilaterally radialis/ dorsalis pedis, no cyanosis, +1 pitting edema bilateral lower extremity Neuro: Awake alert oriented x3 Psych: Normal mood and affect G/U: Positive Cisneros Skin: no rashes, warm and dry Lymphatic: no cervical or axillary lymphadenopathy Results & Data Results & Data Vital Signs (Past 12 Hours) Vital Signs Temp Pulse Pulse Resp BP Pulse Ox O2 Del Method 10/25/24 07:12 92 H 20 96 Nasal Cannula 10/25/24 03:10 37.3 C 112 H 97/54 L 94 Nasal Cannula 10/25/24 00:26 10/25/24 00:26 101 H 22 93 BiPAP 10/25/24 00:00 95 H 10/24/24 23:17 37.1 C 104 H 129/48 L 93 BiPAP 10/24/24 20:01 93 H 18 98 Nasal Cannula 10/24/24 20:00 BiPAP O2 Flow Rate FiO2 10/25/24 07:12 3 10/25/24 03:10 4 10/25/24 00:26 30 10/25/24 00:26 10/25/24 00:00 10/24/24 23:17 10/24/24 20:01 3 10/24/24 20:00 Laboratory Results 10/25/24 06:25 PG Care Time/CCT Total # of Minutes Spent Total Time Spent with Patient: Total time spent is greater than 50% in coordination of care (as documented) at patient's floor/unit and/or counseling patient: Coding Level of Care Code 31930 SUB INP/OBS CARE 2/35MIN Diagnoses Chronic obstructive pulmonary disease, unspecified COPD type J44.9 COPD type: unspecified COPD Acute hypoxic respiratory failure J96.01 Morbid obesity E66.01 Pulmonary hypertension I27.20
[2024-10-25 08:04] LABS: Albumin Level 2.9 gm/dl (3.4-5.0); Calcium 8.1 mg/dl (8.6-10.3); Creatinine Clr Calc Pharmacy 55.3 ml/min; Magnesium 1.8 mg/dl (1.7-2.4); Phosphorus 3.2 mg/dl (2.5-4.9); Potassium 3.9 mmol/L (3.5-5.1); Total Protein 5.9 gm/dl (6.0-8.3)
[2024-10-25] MEDS: FUROSEMIDE INJ 20 MG/2 ML VIAL IV ONE ×2 (10:20→10:27)
[2024-10-25] MEDS: INSULIN ASPART PER UNIT CHARGE SC SCH (11:57)
--- NOTE | 2024-10-25 13:41 | Hospitalist Progress Note ---
Date of Service October 25, 2024 Assessment & Plan (1) Severe sepsis: (2) Acute hypoxic respiratory failure: (3) DKA, type 2: (4) Lactic acidosis: (5) Chronic atrial fibrillation: (6) Supratherapeutic INR: (7) Elevated troponin: Plan Ms. 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 Admitted with severe sepsis with presumed urinary source. Pt with multiple recent admissions: Admitted 09/06-09/11 COPD exac 09/07 RSV. Admitted 09/26-10/08/ acute hypoxic resp failure in setting of CHF Exacerbation Suspected Severe sepsis, borderline Septic Shock Lactic acidosis at this time unknown source of sepsis Resp biofire negative Chest XR and chest CT unremarkable Procalcitonin elevated UA suggestive of infection, Urine Cx NGTD Blood Cx x 2 sets from admission currently growing E coli. Pt with worsening leukocytosis on 10/23. Increased work of breathing. Repeat chest XRAY noting Given complicated picture with worsening leukocytosis, repeat blood cultures ordered received broad spectrum IV antibiotics with Vanco/Cefepime--transitioned to Ceftriaxone before transitioning to Zosyn once more on 10/23 for additional anaerobic coverage with increased work of breathing. ?aspiration Infectious Disease consulted, appreciate recs Palliative Care consulted, appreciate recs Continue to monitor Acute hypoxic respiratory failure Possible interstitial Edema Noted on repeat chest XRAY overnight on 10/23 Received IV Lasix 40mg on 10/23 Monitor Is and Os Pulmonology consulted, appreciate recs 10/24- pt with more increased work of breathing in the setting of a panic attack. Bipap was placed and given Ativan 0.5mg. D dimer elevated, CTA chest noting old pulmonary emboli. Pt back on her warfarin. 10/25- improved Severe Panic Attacks Pt with severe panic attacks with body shakes, trouble breathing, asking for bipap on 10/24 Relief after prn Ativan Psych consulted, appreciate further recs Continue with Ativan prn DKA uncontrolled T2DM insulin dependent on insulin pump Diabetic polyneuropathy ABG pH normal, but pt with anion gap, low bicarb, hyperglycemic Insulin gtt protocol initiated in ED serial labs, accuchecks last a1c 12.2 in September glycemic pharmacy consult Hypermagnesemia Hyperkalemia Slight elevation, continue to monitor Improved Hypophosphatemia replete as needed Chronic atrial fibrillation Supratherapeutic INR CAD hx of torsades de pointes hold warfarin, no evidence of bleeding Follow INR and resume as able INR 2.0 on 10/24, warfarin restarted COPD does not appear in overt exacerbation duonebs scheduled Cirrhosis Noted on CT abd/pelvis US abdomen ordered on 10/23 with concern for volume overload GI consulted, appreciate recs Diet: DMII, low potassium DVT ppx: Supratherapeutic INR, warfarin on hold, follow INR Dispo: PT/OT for further recs once medically stable Admission and Anticipated Discharge Date Admission Date: October 21, 2024 Subjective pt was seen with at bedside Notes her anxiety is much better today. Family asking about Ativan for home use Review of Systems Review of Systems: All systems reviewed & are unremarkable except as noted in Subjective Physical Exam Physical Exam: General: Alert, orientedx2. HEENT: NC/AT CV: RRR Resp: Breath sounds clear bilaterally, no increased effort of breathing Abdomen: Soft, nontender Extremities: No edema in lower extremities bilaterally. Results & Data Results & Data Vital Signs (Past 12 Hours) Vital Signs Temp Pulse Pulse Resp BP Pulse Ox O2 Del Method 10/25/24 12:48 110 H 18 95 Room Air 10/25/24 11:07 36.7 C 99 H 20 108/68 93 Room Air 10/25/24 08:00 Nasal Cannula 10/25/24 08:00 111 H 10/25/24 07:51 37.0 C 91 H 20 109/69 96 Nasal Cannula 10/25/24 07:12 92 H 20 96 Nasal Cannula 10/25/24 03:10 37.3 C 112 H 97/54 L 94 Nasal Cannula O2 Flow Rate 10/25/24 12:48 10/25/24 11:07 10/25/24 08:00 2 10/25/24 08:00 10/25/24 07:51 3 10/25/24 07:12 3 10/25/24 03:10 4
[2024-10-25] MEDS ORDERED: ALBUT/IPRATROP 3MG/0.5MG NEB 3 ML VIAL NEB PRN (16:12)
[2024-10-25] MEDS: IPRATROPIUM BROMIDE NEB SOLN 0.02% 0.5MG/2.5ML VIAL INH SCH (19:29)
[2024-10-25] MEDS: LEVALBUTEROL 1.25 MG/3 ML NEB NEB SCH (19:30)
[2024-10-26 07:50] LABS: Basophils # (auto) 0.03 K/uL (0.00-0.20); Basophils % (auto) 0.3 %; Eosinophils # (auto) 0.09 K/uL (0.00-0.50); Eosinophils % (auto) 0.8 %; Hematocrit (blood only) 24.8 % (37.0-47.0); Hemoglobin 8.1 g/dl (12.0-16.0); Immature Granulocytes % (auto) 0.9 %; Lymphocytes # (auto) 0.89 K/uL (1.20-3.40); Lymphocytes % (auto) 8.4 %; Mean Corpuscular Hemoglobin 27.6 pg (25.0-34.0); Mean Corpuscular Hgb Conc 32.7 g/dL (32.0-36.0); Mean Corpuscular Volume 84.6 fL (80.0-100.0); Mean Platelet Volume 11.8 fL (9.4-12.4); Monocytes # (auto) 0.76 K/uL (0.11-0.59); Monocytes % (auto) 7.2 %; Neutrophils # (auto) 8.74 K/uL (1.40-6.50); Neutrophils % (auto) 82.4 %; Platelet Count 160 K/uL (130-400); RDW Coefficient of Variation 15.9 % (11.5-14.5); RDW Standard Deviation 49.1 fL (36.4-46.3); Red Blood Count 2.93 M/uL (4.20-5.40); White Blood Count 10.61 K/ul (4.8-10.8)
[2024-10-26] MEDS: INSULIN ASPART PER UNIT CHARGE SC SCH (08:04)
[2024-10-26 08:06] LABS: Albumin Globulin Ratio 0.9 (0.9-2); Albumin Level 2.9 gm/dl (3.4-5.0); BUN Creatinine Ratio 30.1 (10-20); Bilirubin,Total 0.7 mg/dl (0.2-1.0); Calcium 8.1 mg/dl (8.6-10.3); Creatinine Clr Calc Pharmacy 76.4 ml/min; Globulin 3.1 gm/dl (2.5-4.0); Magnesium 1.9 mg/dl (1.7-2.4); Phosphorus 2.3 mg/dl (2.5-4.9); Potassium 3.5 mmol/L (3.5-5.1)
[2024-10-26 08:18] LABS: INR 1.4 (0.9-1.1); Prothrombin Time 14.7 Seconds (9.0-12.0)
[2024-10-26] MEDS: POT PHOSPHATE MONOBASIC W/ SOD TAB PO SCH (09:24)
--- NOTE | 2024-10-26 10:52 | Hospitalist Progress Note ---
Date of Service October 26, 2024 Assessment & Plan (1) Severe sepsis: (2) Acute hypoxic respiratory failure: (3) DKA, type 2: (4) Lactic acidosis: (5) Chronic atrial fibrillation: (6) Supratherapeutic INR: (7) Elevated troponin: Plan Ms. 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 Admitted with severe sepsis with presumed urinary source. Pt with multiple recent admissions: Admitted 09/06-09/11 COPD exac 09/07 RSV. Admitted 09/26-10/08/ acute hypoxic resp failure in setting of CHF Exacerbation Suspected Severe sepsis, borderline Septic Shock Lactic acidosis at this time unknown source of sepsis Resp biofire negative Chest XR and chest CT unremarkable Procalcitonin elevated UA suggestive of infection, Urine Cx NGTD Blood Cx x 2 sets from admission currently growing E coli. Pt with worsening leukocytosis on 10/23. Increased work of breathing. Repeat chest XRAY noting Given complicated picture with worsening leukocytosis, repeat blood cultures ordered received broad spectrum IV antibiotics with Vanco/Cefepime--transitioned to Ceftriaxone before transitioning to Zosyn once more on 10/23 for additional anaerobic coverage with increased work of breathing. ?aspiration Infectious Disease consulted, appreciate recs Palliative Care consulted, appreciate recs Continue to monitor Acute hypoxic respiratory failure Possible interstitial Edema Chronic Pulmonary Emboli with chronic DVT Noted on repeat chest XRAY overnight on 10/23 Received IV Lasix 40mg on 10/23 Monitor Is and Os Pulmonology consulted, appreciate recs. recommended/stated the following: "...Consideration of Lasix Sunday-Sunday 20 mg could be thought of on an as-needed basis with increasing weight or lower extremity swelling. Recommend outpatient polysomnography for the patient She also has chronic DVT in the left lower extremity as well as chronic pulmonary emboli. She is on warfarin. Recommend getting recommendations from hematology to see if that needs to be changed to something else. Also recommend patient to be evaluated at a tertiary pulmonary hypertension center given the possibility of CTEPH..." 10/24- pt with more increased work of breathing in the setting of a panic attack. Bipap was placed and given Ativan 0.5mg. D dimer elevated, CTA chest noting old pulmonary emboli. Pt back on her warfarin. 10/25- improved 10/26- improved, consider Hematology consult in AM Severe Panic Attacks Pt with severe panic attacks with body shakes, trouble breathing, asking for bipap on 10/24 Relief after prn Ativan Psych consulted, appreciate further recs Continue with Ativan prn DKA uncontrolled T2DM insulin dependent on insulin pump Diabetic polyneuropathy ABG pH normal, but pt with anion gap, low bicarb, hyperglycemic Insulin gtt protocol initiated in ED serial labs, accuchecks last a1c 12.2 in September glycemic pharmacy consult Hypermagnesemia Hyperkalemia Slight elevation, continue to monitor Improved Hypophosphatemia replete as needed Chronic atrial fibrillation Supratherapeutic INR CAD hx of torsades de pointes hold warfarin, no evidence of bleeding Follow INR and resume as able INR 2.0 on 10/24, warfarin restarted COPD does not appear in overt exacerbation duonebs scheduled Cirrhosis Noted on CT abd/pelvis US abdomen ordered on 10/23 with concern for volume overload GI consulted, appreciate recs Diet: DMII, low potassium DVT ppx: Supratherapeutic INR, warfarin on hold, follow INR Dispo: PT/OT for further recs once medically stable Admission and Anticipated Discharge Date Admission Date: October 21, 2024 Subjective pt was seen with her at bedside She was on RA, denied acute concerns Asking about discharge To go to centre Care Review of Systems Review of Systems: All systems reviewed & are unremarkable except as noted in Subjective Physical Exam Physical Exam: General: Alert, orientedx2. HEENT: NC/AT CV: RRR Resp: Breath sounds clear bilaterally, no increased effort of breathing Abdomen: Soft, nontender Extremities: No edema in lower extremities bilaterally. Results & Data Results & Data Vital Signs (Past 12 Hours) Vital Signs Temp Pulse Pulse Pulse Resp BP Pulse Ox 10/26/24 08:12 36.8 C 103 H 19 129/69 94 10/26/24 08:00 10/26/24 08:00 108 H 10/26/24 07:13 96 H 19 98 10/26/24 04:49 651 H 33 H 92 10/26/24 02:36 37.3 C 95 H 18 122/69 96 10/26/24 00:50 88 10/26/24 00:23 88 22 98 O2 Del Method FiO2 10/26/24 08:12 Room Air 10/26/24 08:00 Room Air 10/26/24 08:00 10/26/24 07:13 Room Air 10/26/24 04:49 30 10/26/24 02:36 BiPAP 10/26/24 00:50 10/26/24 00:23 30
--- NOTE | 2024-10-26 11:32 | Pharmacy Report ---
Pharmacy Glycemic Short Note 2 - Date of Service October 26, 2024 - Glycemic Short BSG Results (Last 24 hours): 10/25/24 10/25/24 10/26/24 16:15 20:21 06:58 Glucose 179 H POC Glucose 188 H 228 H 10/26/24 10/26/24 07:28 11:16 Glucose POC Glucose 184 H 268 H OUTPATIENT ANTIDIABETIC REGIMEN: * A1c 12.2% 09/06/24 * Metformin 1000mg BID * Ozempic 2mg weekly (Sundays) * Aspart/Novolog via [employer] 780G insulin pump * Basal: * 6009-6192: 8 units/hr * 1684-7628: 8 units/hr * 3834-3721: 8.9 units/hr * Total: 202.8 units Bolus: ISF: 10 ICR: 5 but uses preset dosing of 25 units with breakfast, 25 + 20 units with lunch, 25 + 15 units with supper BG Target: 100-140 Estimated TDD: ~325-350 units Actual TDD: 210.475 units Basal: 155.6 units (74%) Bolus: 54.8 units (26%) ASSESSMENT: 10/26/24 * Blood sugars labile/elevated yesterday, ranging 143-228 mg/dL * Received 141 units of insulin (80 units of basal and 61 units of prandial/correctional bolus) * Blood sugars remain elevated again today, so will make regimen more aggressive * Of note, patient does have past history of hypoglycemia, so will be conservative w/ changes 10/24/24 * Patient required a total of 179 units of insulin yesterday (90 units were basal and 89 units were bolus). * BSGs were still significantly above goal range yesterday ([phone]/dL) despite adjustments made yesterday. Will increase HS Lantus scale (0,10,or 20 units depending on BSG) * Fasting BSG was 259mg/dL and lunch was 179mg/dL. BSGs are trending down so will continue bolus insulin parameters as ordered. 10/23/24: * Blood sugars elevated post insulin gtt transition yesterday and into today * Will allow for slightly increased basal insulin today and will tighten carb ratio * Plan is to transition back to insulin pump prior to discharge 10/22/24: * Patient admitted with hyperglycemia requiring insulin infusion and E. coli bacteremia. * AG closed this morning. Patient was discussed on multidisciplinary rounds and the decision was made to attempt a drip transition, despite high insulin infusion rate (14 units/hr). Patient was given a once time dose of lantus and the infusion as successfully turned off after 3 hours of overlap at 3pm. Patient was also ordered a diet with lunch. * Lantus scale ordered for this evening. Patient previously has required large doses of insulin and given high rate of insulin infusion, patient may experience some hyperglycemia this evening. Will monitor BSGs off of the drip and adjust basal/bolus dosing accordingly. PLAN FOR INPATIENT GLYCEMIC CONTROL: * Hold outpatient oral diabetes medications * Basal insulin * Lantus 80 units SC q AM * Lantus 0-10 units SC HS (threshold of 140 mg/dL) * Bolus insulin * NovoLog per scale ACHS or Q6hrs while NPO * Goal Range: Low 110 mg/dL - High 140 mg/dL * Correction Factor: 15 mg/dL/unit at breakfast, 20 mg/dL/unit at lunch, dinner, HS * Nutritional / Prandial insulin per carb ratio of 1 unit per 2.5 grams CHO consumed w/ breakfast, 3 grams CHO consumed w/ lunch, dinner, HS
--- NOTE | 2024-10-26 12:16 | Pulmonology Progress Note ---
Date of Service October 26, 2024 Assessment & Plan (1) COPD (chronic obstructive pulmonary disease): COPD type: unspecified COPD Qualified Code(s): J44.9 - Chronic obstructive pulmonary disease, unspecified (2) Acute hypoxic respiratory failure: (3) Morbid obesity: (4) Pulmonary hypertension: Plan CTA chest 10/24/2024 personally reviewed: Motion degraded study Chronic right lower as well as left lower pulmonary artery emboli Small right-sided pleural effusion. Minimal left-sided pleural effusion Cardiomegaly No significant mediastinal lymphadenopathy CT chest 10/21/2024 personally reviewed: Patchy groundglass opacities appreciated in the right upper lobe as well as left upper lobe Cardiomegaly No significant mediastinal lymphadenopathy 2D echo 10/22/2024: EF 60-65%, mild concentric LVH, mild MR, mild MS, mild TR, P ASP 46 mmHg --Acute hypoxic respiratory failure BNP 1156 on presentation Respiratory BioFire negative for everything on 10/21/2024 Nasal MRSA negative, procalcitonin 15.3 --Pulmonary hypertension A combination of type II and type III Type IV is also a possibility given the chronic pulmonary emboli --A-fib On warfarin at home --DNR/DNI --E. coli bacteremia Antibiotics as per primary team Plan: In/out: - 1.5 L, urine output 2050 mL, -1.4 L since coming to the hospital I will give another 20 mg of Lasix Consideration of Lasix Sunday-Sunday 20 mg could be thought of on an as-needed basis with increasing weight or lower extremity swelling Recommend outpatient polysomnography for the patient She also has chronic DVT in the left lower extremity as well as chronic pulmonary emboli. She is on warfarin Recommend getting recommendations from hematology to see if that needs to be changed to something else Also recommend patient to be evaluated at a tertiary pulmonary hypertension center given the possibility of CTEPH Case was discussed with primary team as well as RN at bedside No further recommendation from pulmonary perspective, will sign off Please call directly with any questions Please note the above document was generated using voice recognition software. It may contain grammatical, syntax or spelling errors.Any formal questions or concerns about the content, text or information contained within the body of this dictation should be directly addressed to the provider for clarification. Admission and Anticipated Discharge Date Admission Date: October 21, 2024 Subjective Patient seen and examined at bedside. No acute distress, no adverse events overnight She was saturating 95-96% on room air She was sitting on the chair Used BiPAP overnight Has been diuresing well Denied any headache or blurry vision Review of Systems 2 Review of Systems: All systems reviewed & are unremarkable except as noted in Subjective Physical Exam 2 Physical Exam: Constitutional: No acute distress HEENT: EOMI, PERRLA Respiratory system: Decreased air entry bilaterally, no wheeze, no rhonchi, mild crackles bilateral lower lobes CVS: S1-S2 positive, +3 out of 6 systolic murmur appreciated best at aorta Abdomen: Soft, nontender, nondistended, positive bowel sounds x4, obese Extremities: +2 pulses bilaterally radialis/ dorsalis pedis, no cyanosis, minimal pitting edema bilateral lower extremity Neuro: Awake alert oriented x3 Psych: Normal mood and affect G/U: Positive Cisneros Skin: no rashes, warm and dry Lymphatic: no cervical or axillary lymphadenopathy Results & Data Results & Data Vital Signs (Past 12 Hours) Vital Signs Temp Pulse Pulse Pulse Resp BP BP 10/26/24 11:16 37.2 C 93 H 20 105/63 10/26/24 08:12 36.8 C 103 H 19 129/69 10/26/24 08:00 10/26/24 08:00 108 H 10/26/24 07:13 96 H 19 10/26/24 04:49 651 H 33 H 10/26/24 02:36 37.3 C 95 H 18 122/69 10/26/24 00:50 88 10/26/24 00:23 88 22 Pulse Ox O2 Del Method FiO2 10/26/24 11:16 94 Room Air 10/26/24 08:12 94 Room Air 10/26/24 08:00 Room Air 10/26/24 08:00 10/26/24 07:13 98 Room Air 10/26/24 04:49 92 30 10/26/24 02:36 96 BiPAP 10/26/24 00:50 10/26/24 00:23 98 30 Laboratory Results 10/26/24 06:58 10/26/24 06:58 PG Care Time/CCT Total # of Minutes Spent Total Time Spent with Patient: Total time spent is greater than 50% in coordination of care (as documented) at patient's floor/unit and/or counseling patient: Coding Level of Care Code 38942 SUB INP/OBS CARE MIN Diagnoses Chronic obstructive pulmonary disease, unspecified COPD type J44.9 COPD type: unspecified COPD Acute hypoxic respiratory failure J96.01 Morbid obesity E66.01 Pulmonary hypertension I27.20
[2024-10-26] MEDS: FUROSEMIDE INJ 20 MG/2 ML VIAL IV ONE (12:28)
[2024-10-26] MEDS: WARFARIN SOD 10 MG TAB PO SCH (15:09)
[2024-10-26] MEDS: LORazepam 2 MG/1 ML VIAL IV PRN (17:51)
[2024-10-26] MEDS: hydrOXYzine HCl 10 MG TAB PO PRN (20:58)
[2024-10-26] MEDS: LANTUS PER UNIT CHARGE SC SCH (21:05)
[2024-10-26] MEDS: POTASSIUM CHLORIDE CRTAB 20 MEQ TABCR PO STA (23:50)
[2024-10-26] MEDS: ACETAMINOPHEN 500 MG TAB PO PRN (23:50)
[2024-10-26] MEDS: METOPROLOL TARTRATE 1 MG/ML VIAL IV STA (23:51)
[2024-10-26] MEDS: MAGNESIUM SULFATE / D5W 1 GM/100 ML BAG IV ONE (23:51)
[2024-10-27] MEDS: POTASSIUM CHLORIDE CRTAB 20 MEQ TABCR PO ONE (00:39)
--- NOTE | 2024-10-27 07:38 | Pulmonology Progress Note ---
Date of Service October 27, 2024 Assessment & Plan (1) COPD (chronic obstructive pulmonary disease): COPD type: unspecified COPD Qualified Code(s): J44.9 - Chronic obstructive pulmonary disease, unspecified (2) Acute hypoxic respiratory failure: (3) Morbid obesity: (4) Pulmonary hypertension: Plan CTA chest 10/24/2024 personally reviewed: Motion degraded study Chronic right lower as well as left lower pulmonary artery emboli Small right-sided pleural effusion. Minimal left-sided pleural effusion Cardiomegaly No significant mediastinal lymphadenopathy CT chest 10/21/2024 personally reviewed: Patchy groundglass opacities appreciated in the right upper lobe as well as left upper lobe Cardiomegaly No significant mediastinal lymphadenopathy 2D echo 10/22/2024: EF 60-65%, mild concentric LVH, mild MR, mild MS, mild TR, P ASP 46 mmHg --Acute hypoxic respiratory failure BNP 1156 on presentation Respiratory BioFire negative for everything on 10/21/2024 Nasal MRSA negative, procalcitonin 15.3 --Pulmonary hypertension A combination of type II and type III Type IV is also a possibility given the chronic pulmonary emboli --A-fib On warfarin at home --DNR/DNI --E. coli bacteremia Antibiotics as per primary team Plan: In/out: -525, urine output 2150 mL, -1.9 L since coming to the hospital Consideration of Lasix Sunday-Sunday 20 mg could be thought of on an as-needed basis with increasing weight or lower extremity swelling Recommend outpatient polysomnography for the patient For the chronic DVT in the left lower extremity as well as chronic pulmonary emboli. She is on warfarin Recommend getting recommendations from hematology to see if that needs to be changed to something else Also recommend patient to be evaluated at a tertiary pulmonary hypertension center given the possibility of CTEPH Case was discussed with RN at bedside No further recommendation from pulmonary perspective, will sign off Please call directly with any questions Please note the above document was generated using voice recognition software. It may contain grammatical, syntax or spelling errors.Any formal questions or concerns about the content, text or information contained within the body of this dictation should be directly addressed to the provider for clarification. Admission and Anticipated Discharge Date Admission Date: October 21, 2024 Subjective Patient seen and examined at bedside. Acute distress, no vesicles or She was saturating well on room air Continues her BiPAP overnight Cisneros catheter has been removed, Review of Systems 2 Review of Systems: All systems reviewed & are unremarkable except as noted in Subjective Physical Exam 2 Physical Exam: Constitutional: No acute distress HEENT: EOMI, PERRLA Respiratory system: Decreased air entry bilaterally, no wheeze, no rhonchi, minimal crackles bilateral lower lobes CVS: S1-S2 positive, +3 out of 6 systolic murmur appreciated best at aorta Abdomen: Soft, nontender, nondistended, positive bowel sounds x4, obese Extremities: +2 pulses bilaterally radialis/ dorsalis pedis, no cyanosis, no edema Neuro: Awake alert oriented x3 Psych: Normal mood and affect G/U: Positive Cisneros Skin: no rashes, warm and dry Lymphatic: no cervical or axillary lymphadenopathy Results & Data Results & Data Vital Signs (Past 12 Hours) Vital Signs Temp Pulse Pulse Resp BP BP Pulse Ox 10/27/24 07:23 102 H 21 96 10/27/24 07:22 100 H 20 95 10/27/24 03:54 36.4 C L 95 H 20 111/67 97 10/27/24 03:25 120 H 20 95 10/27/24 00:39 37.4 C 10/27/24 00:38 120 H 119/66 10/27/24 00:00 110 H 10/26/24 23:45 39.4 C H 124 H 22 115/67 90 10/26/24 20:03 122 H 28 H 97 10/26/24 20:00 10/26/24 19:44 37.6 C H 123 H 27 H 153/72 H 93 O2 Del Method FiO2 10/27/24 07:23 30 10/27/24 07:22 BiPAP 30 10/27/24 03:54 BiPAP 10/27/24 03:25 30 10/27/24 00:39 10/27/24 00:38 10/27/24 00:00 10/26/24 23:45 Room Air 10/26/24 20:03 30 10/26/24 20:00 Room Air, BiPAP 10/26/24 19:44 Room Air Laboratory Results 10/27/24 07:08 10/27/24 07:08 PG Care Time/CCT Total # of Minutes Spent Total Time Spent with Patient: Total time spent is greater than 50% in coordination of care (as documented) at patient's floor/unit and/or counseling patient: Coding Level of Care Code 91529 SUB INP/OBS CARE Diagnoses Chronic obstructive pulmonary disease, unspecified COPD type J44.9 COPD type: unspecified COPD Acute hypoxic respiratory failure J96.01 Morbid obesity E66.01 Pulmonary hypertension I27.20
[2024-10-27 07:40] LABS: Basophils # (auto) 0.02 K/uL (0.00-0.20); Basophils % (auto) 0.2 %; Eosinophils # (auto) 0.03 K/uL (0.00-0.50); Eosinophils % (auto) 0.3 %; Hemoglobin 7.9 g/dl (12.0-16.0); Immature Granulocytes % (auto) 1.1 %; Lymphocytes # (auto) 1.11 K/uL (1.20-3.40); Lymphocytes % (auto) 12.6 %; Mean Corpuscular Hgb Conc 32.9 g/dL (32.0-36.0); Mean Corpuscular Volume 85.1 fL (80.0-100.0); Mean Platelet Volume 11.1 fL (9.4-12.4); Monocytes % (auto) 6.8 %; Neutrophils # (auto) 6.93 K/uL (1.40-6.50); Platelet Count 157 K/uL (130-400); RDW Coefficient of Variation 15.9 % (11.5-14.5); RDW Standard Deviation 49.4 fL (36.4-46.3); Red Blood Count 2.82 M/uL (4.20-5.40); White Blood Count 8.79 K/ul (4.8-10.8)
[2024-10-27 07:49] LABS: INR 1.5 (0.9-1.1); Prothrombin Time 15.6 Seconds (9.0-12.0)
[2024-10-27 07:51] LABS: Albumin Level 2.8 gm/dl (3.4-5.0); BUN Creatinine Ratio 30.5 (10-20); Bilirubin,Total 0.7 mg/dl (0.2-1.0); Calcium 7.9 mg/dl (8.6-10.3); Creatinine Clr Calc Pharmacy 67.6 ml/min; Globulin 2.9 gm/dl (2.5-4.0); Magnesium 2.2 mg/dl (1.7-2.4); Phosphorus 3.3 mg/dl (2.5-4.9); Potassium 3.2 mmol/L (3.5-5.1); Total Protein 5.7 gm/dl (6.0-8.3)
[2024-10-27 08:11] LABS: Polychromasia 1+
[2024-10-27] MEDS: POTASSIUM CHLORIDE CRTAB 20 MEQ TABCR PO STA (09:50)
--- NOTE | 2024-10-27 10:58 | Pharmacy Report ---
Pharmacy Glycemic Short Note 2 - Date of Service October 27, 2024 - Glycemic Short BSG Results (Last 24 hours): 10/26/24 10/26/24 10/26/24 11:16 16:21 20:21 Glucose POC Glucose 268 H 148 H 120 H 10/27/24 10/27/24 07:08 07:26 Glucose 157 H POC Glucose 178 H OUTPATIENT ANTIDIABETIC REGIMEN: * A1c 12.2% 09/06/24 * Metformin 1000mg BID * Ozempic 2mg weekly (Sundays) * Aspart/Novolog via [employer] 780G insulin pump * Basal: * 7259-7947: 8 units/hr * 4875-7836: 8 units/hr * 8568-9496: 8.9 units/hr * Total: 202.8 units Bolus: ISF: 10 ICR: 5 but uses preset dosing of 25 units with breakfast, 25 + 20 units with lunch, 25 + 15 units with supper BG Target: 100-140 Estimated TDD: ~325-350 units Actual TDD: 210.475 units Basal: 155.6 units (74%) Bolus: 54.8 units (26%) ASSESSMENT: 10/27/24 * Graciela received 138 units of insulin yesterday (80 were basal) * Fasting BSG this AM acceptable, will once daily basal insulin to aid with transition back to insulin pump on discharge * Breakfast carbohydrate ratio tightened to hopefully help with elevated lunchtime BSGs * She is receiving IV ceftriaxone for E. Coli bacteremia, no other glycemic stressors noted. 10/26/24 * Blood sugars labile/elevated yesterday, ranging 143-228 mg/dL * Received 141 units of insulin (80 units of basal and 61 units of prandial/correctional bolus) * Blood sugars remain elevated again today, so will make regimen more aggressive * Of note, patient does have past history of hypoglycemia, so will be conservative w/ changes 10/24/24 * Patient required a total of 179 units of insulin yesterday (90 units were basal and 89 units were bolus). * BSGs were still significantly above goal range yesterday ([phone]/dL) despite adjustments made yesterday. Will increase HS Lantus scale (0,10,or 20 units depending on BSG) * Fasting BSG was 259mg/dL and lunch was 179mg/dL. BSGs are trending down so will continue bolus insulin parameters as ordered. 10/23/24: * Blood sugars elevated post insulin gtt transition yesterday and into today * Will allow for slightly increased basal insulin today and will tighten carb ratio * Plan is to transition back to insulin pump prior to discharge 10/22/24: * Patient admitted with hyperglycemia requiring insulin infusion and E. coli bacteremia. * AG closed this morning. Patient was discussed on multidisciplinary rounds and the decision was made to attempt a drip transition, despite high insulin infusion rate (14 units/hr). Patient was given a once time dose of lantus and the infusion as successfully turned off after 3 hours of overlap at 3pm. Patient was also ordered a diet with lunch. * Lantus scale ordered for this evening. Patient previously has required large doses of insulin and given high rate of insulin infusion, patient may experience some hyperglycemia this evening. Will monitor BSGs off of the drip and adjust basal/bolus dosing accordingly. PLAN FOR INPATIENT GLYCEMIC CONTROL: * Hold outpatient oral diabetes medications * Basal insulin * Lantus 80 units SC q AM * Bolus insulin * NovoLog per scale ACHS or Q6hrs while NPO * Goal Range: Low 110 mg/dL - High 140 mg/dL * Correction Factor: 15 mg/dL/unit at breakfast, 20 mg/dL/unit at lunch, dinner, HS * Nutritional / Prandial insulin per carb ratio of 1 unit per 2.5 grams CHO consumed w/ breakfast, 3 grams CHO consumed w/ lunch, dinner, HS
--- NOTE | 2024-10-27 14:08 | Hospitalist Progress Note ---
Date of Service October 27, 2024 Assessment & Plan (1) Severe sepsis: (2) Acute hypoxic respiratory failure: (3) DKA, type 2: (4) Lactic acidosis: (5) Chronic atrial fibrillation: (6) Supratherapeutic INR: (7) Elevated troponin: Plan Ms. 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 Admitted with severe sepsis with presumed urinary source. Pt with multiple recent admissions: Admitted 09/06-09/11 COPD exac 09/07 RSV. Admitted 09/26-10/08/ acute hypoxic resp failure in setting of CHF Exacerbation Suspected Severe sepsis, borderline Septic Shock Lactic acidosis at this time unknown source of sepsis Resp biofire negative Chest XR and chest CT unremarkable Procalcitonin elevated UA suggestive of infection, Urine Cx NGTD Blood Cx x 2 sets from admission currently growing E coli. Pt with worsening leukocytosis on 10/23. Increased work of breathing. Repeat chest XRAY noting Given complicated picture with worsening leukocytosis, repeat blood cultures ordered received broad spectrum IV antibiotics with Vanco/Cefepime--transitioned to Ceftriaxone before transitioning to Zosyn once more on 10/23 for additional anaerobic coverage with increased work of breathing. ?aspiration Infectious Disease consulted, appreciate recs Palliative Care consulted, appreciate recs Continue to monitor Acute hypoxic respiratory failure Possible interstitial Edema Chronic Pulmonary Emboli with chronic DVT Noted on repeat chest XRAY overnight on 10/23 Received IV Lasix 40mg on 10/23 Monitor Is and Os Pulmonology consulted, appreciate recs. recommended/stated the following: "...Consideration of Lasix Sunday-Sunday 20 mg could be thought of on an as-needed basis with increasing weight or lower extremity swelling. Recommend outpatient polysomnography for the patient She also has chronic DVT in the left lower extremity as well as chronic pulmonary emboli. She is on warfarin. Recommend getting recommendations from hematology to see if that needs to be changed to something else. Also recommend patient to be evaluated at a tertiary pulmonary hypertension center given the possibility of CTEPH..." 10/24- pt with more increased work of breathing in the setting of a panic attack. Bipap was placed and given Ativan 0.5mg. D dimer elevated, CTA chest noting old pulmonary emboli. Pt back on her warfarin. 10/25- improved 10/26- improved 10/27- consider Hematology consult in AM Severe Panic Attacks Pt with severe panic attacks with body shakes, trouble breathing, asking for bipap on 10/24 Relief after prn Ativan Psych consulted, appreciate further recs Continue with Ativan prn DKA uncontrolled T2DM insulin dependent on insulin pump Diabetic polyneuropathy ABG pH normal, but pt with anion gap, low bicarb, hyperglycemic Insulin gtt protocol initiated in ED serial labs, accuchecks last a1c 12.2 in September glycemic pharmacy consult Hypermagnesemia Hyperkalemia Slight elevation, continue to monitor Improved Hypophosphatemia replete as needed Chronic atrial fibrillation Supratherapeutic INR CAD hx of torsades de pointes hold warfarin, no evidence of bleeding Follow INR and resume as able INR 2.0 on 10/24, warfarin restarted COPD does not appear in overt exacerbation duonebs scheduled Cirrhosis Noted on CT abd/pelvis US abdomen ordered on 10/23 with concern for volume overload GI consulted, appreciate recs Diet: DMII, low potassium DVT ppx: Supratherapeutic INR, warfarin on hold, follow INR Dispo: PT/OT for further recs once medically stable Admission and Anticipated Discharge Date Admission Date: October 21, 2024 Subjective pt was seen sitting up in her chair beside her bed On RA Anxious for discharge Review of Systems Review of Systems: All systems reviewed & are unremarkable except as noted in Subjective Physical Exam Physical Exam: General: Alert, orientedx2. HEENT: NC/AT CV: RRR Resp: Breath sounds clear bilaterally, no increased effort of breathing Abdomen: Soft, nontender Extremities: No edema in lower extremities bilaterally. Results & Data Results & Data Vital Signs (Past 12 Hours) Vital Signs Temp Pulse Pulse Resp BP BP Pulse Ox 10/27/24 11:24 36.6 C 79 19 119/66 98 10/27/24 09:35 10/27/24 07:48 36.4 C L 95 H 18 121/76 95 10/27/24 07:40 77 10/27/24 07:23 102 H 21 96 10/27/24 07:22 100 H 20 95 10/27/24 03:54 36.4 C L 95 H 20 111/67 97 10/27/24 03:25 120 H 20 95 O2 Del Method FiO2 10/27/24 11:24 Room Air 10/27/24 09:35 Room Air 10/27/24 07:48 CPAP 10/27/24 07:40 10/27/24 07:23 30 10/27/24 07:22 BiPAP 30 10/27/24 03:54 BiPAP 10/27/24 03:25 30
[2024-10-28 07:55] LABS: Basophils # (auto) 0.01 K/uL (0.00-0.20); Basophils % (auto) 0.2 %; Eosinophils # (auto) 0.09 K/uL (0.00-0.50); Eosinophils % (auto) 1.4 %; Hematocrit (blood only) 23.7 % (37.0-47.0); Hemoglobin 7.9 g/dl (12.0-16.0); Immature Granulocytes # (auto) 0.04 K/uL (0.01-0.20); Immature Granulocytes % (auto) 0.6 %; Mean Corpuscular Hemoglobin 28.4 pg (25.0-34.0); Mean Corpuscular Hgb Conc 33.3 g/dL (32.0-36.0); Mean Corpuscular Volume 85.3 fL (80.0-100.0); Mean Platelet Volume 10.8 fL (9.4-12.4); Monocytes # (auto) 0.64 K/uL (0.11-0.59); Monocytes % (auto) 9.6 %; Neutrophils # (auto) 4.67 K/uL (1.40-6.50); Neutrophils % (auto) 70.2 %; Platelet Count 174 K/uL (130-400); RDW Coefficient of Variation 16.1 % (11.5-14.5); RDW Standard Deviation 49.5 fL (36.4-46.3); Red Blood Count 2.78 M/uL (4.20-5.40); White Blood Count 6.65 K/ul (4.8-10.8)
[2024-10-28 08:20] LABS: INR 1.3 (0.9-1.1); Prothrombin Time 13.7 Seconds (9.0-12.0)
[2024-10-28 08:26] LABS: Albumin Globulin Ratio 0.8 (0.9-2); Albumin Level 2.8 gm/dl (3.4-5.0); BUN Creatinine Ratio 27.3 (10-20); Bilirubin,Total 0.6 mg/dl (0.2-1.0); Calcium 7.9 mg/dl (8.6-10.3); Globulin 3.3 gm/dl (2.5-4.0); Magnesium 2.2 mg/dl (1.7-2.4); Phosphorus 3.9 mg/dl (2.5-4.9); Potassium 3.3 mmol/L (3.5-5.1); Total Protein 6.1 gm/dl (6.0-8.3)
[2024-10-28 08:28] LABS: RBC Morphology Unremarkable
[2024-10-28] MEDS: POTASSIUM CHLORIDE CRTAB 20 MEQ TABCR PO STA (08:35)
--- NOTE | 2024-10-28 11:45 | Hospitalist Progress Note ---
Date of Service October 28, 2024 Assessment & Plan (1) Severe sepsis: (2) Acute hypoxic respiratory failure: (3) DKA, type 2: (4) Lactic acidosis: (5) Chronic atrial fibrillation: (6) Supratherapeutic INR: (7) Elevated troponin: Plan Ms. 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 Admitted with severe sepsis with presumed urinary source. Pt with multiple recent admissions: Admitted 09/06-09/11 COPD exac 09/07 RSV. Admitted 09/26-10/08/ acute hypoxic resp failure in setting of CHF Exacerbation Suspected Severe sepsis, borderline Septic Shock Lactic acidosis at this time unknown source of sepsis Resp biofire negative Chest XR and chest CT unremarkable Procalcitonin elevated UA suggestive of infection, Urine Cx NGTD Blood Cx x 2 sets from admission currently growing E coli. Pt with worsening leukocytosis on 10/23. Increased work of breathing. Repeat chest XRAY noting Given complicated picture with worsening leukocytosis, repeat blood cultures ordered received broad spectrum IV antibiotics with Vanco/Cefepime--transitioned to Ceftriaxone before transitioning to Zosyn once more on 10/23 for additional anaerobic coverage with increased work of breathing. ?aspiration Infectious Disease consulted, appreciate recs Palliative Care consulted, appreciate recs Continue to monitor Acute hypoxic respiratory failure Possible interstitial Edema Chronic Pulmonary Emboli with chronic DVT Noted on repeat chest XRAY overnight on 10/23 Received IV Lasix 40mg on 10/23 Monitor Is and Os Pulmonology consulted, appreciate recs. recommended/stated the following: "...Consideration of Lasix Sunday-Sunday 20 mg could be thought of on an as-needed basis with increasing weight or lower extremity swelling. Recommend outpatient polysomnography for the patient She also has chronic DVT in the left lower extremity as well as chronic pulmonary emboli. She is on warfarin. Recommend getting recommendations from hematology to see if that needs to be changed to something else. Also recommend patient to be evaluated at a tertiary pulmonary hypertension center given the possibility of CTEPH..." 10/24- pt with more increased work of breathing in the setting of a panic attack. Bipap was placed and given Ativan 0.5mg. D dimer elevated, CTA chest noting old pulmonary emboli. Pt back on her warfarin. 10/25- improved 10/26- improved 10/27- consider Hematology consult in AM 10/28- awaiting Hematology recs for anticoag (continue with warfarin vs switching to another), per pulm. INR still subtherapeutic. Pt presented with INR 4.1 this admission and warfarin was restarted on 10/24/24. INR currently 1.3. Will hold off on additional warfarin doses at this time and await further recs from Hematology. Severe Panic Attacks Pt with severe panic attacks with body shakes, trouble breathing, asking for bipap on 10/24 Relief after prn Ativan Psych consulted, appreciate further recs Continue with Ativan prn DKA uncontrolled T2DM insulin dependent on insulin pump Diabetic polyneuropathy ABG pH normal, but pt with anion gap, low bicarb, hyperglycemic Insulin gtt protocol initiated in ED serial labs, accuchecks last a1c 12.2 in September glycemic pharmacy consult Hypermagnesemia Hyperkalemia Slight elevation, continue to monitor Improved Hypophosphatemia replete as needed Chronic atrial fibrillation Supratherapeutic INR CAD hx of torsades de pointes hold warfarin, no evidence of bleeding Follow INR and resume as able INR 2.0 on 10/24, warfarin restarted COPD does not appear in overt exacerbation duonebs scheduled Cirrhosis Noted on CT abd/pelvis US abdomen ordered on 10/23 with concern for volume overload GI consulted, appreciate recs Diet: DMII, low potassium DVT ppx: Supratherapeutic INR, continue warfarin at this time, follow INR Dispo: PT/OT for further recs once medically stable Admission and Anticipated Discharge Date Admission Date: October 21, 2024 Subjective pt was seen sitting up in the chair with her at bedside asking about dc plans, CM to visit/contact Going to [facility] Needs Hematology input for anticoag recs Review of Systems Review of Systems: All systems reviewed & are unremarkable except as noted in Subjective Physical Exam Physical Exam: General: Alert, orientedx2. HEENT: NC/AT CV: RRR, +murmur Resp: Breath sounds clear bilaterally, no increased effort of breathing Abdomen: Soft, nontender Extremities: No edema in lower extremities bilaterally. Results & Data Results & Data Vital Signs (Past 12 Hours) Vital Signs Temp Pulse Pulse Resp BP Pulse Ox O2 Del Method 10/28/24 10:44 Room Air 10/28/24 07:51 79 10/28/24 07:36 98 H 19 96 BiPAP 10/28/24 07:11 36.7 C 96 H 19 112/59 L 94 Room Air 10/28/24 03:14 94 H 21 98 10/28/24 03:06 36.4 C L 82 18 122/67 99 BiPAP FiO2 10/28/24 10:44 10/28/24 07:51 10/28/24 07:36 30 10/28/24 07:11 10/28/24 03:14 30 10/28/24 03:06 Diagnostic Findings Chest X-Ray 10/21/24 14:02 XR chest 1V portable CLINICAL HISTORY: Sepsis COMPARISON STUDY: 10/05/2024 FINDINGS: There are mitral valvular calcifications. There is stable moderate cardiomegaly without pulmonary vascular congestion. No effusion, consolidation, or pneumothorax. IMPRESSION: No acute findings. ACT 112: Negative or not required by law. Electronically signed by: Marcial Aaron M.D. 10/21/2024 2:[address] 10/21/24 16:24 INDICATION: Shortness of breath. Abdominal pain. COMPARISON: No relevant priors available. TECHNIQUE: Axial CT images of the chest, abdomen and pelvis were obtained. Postcontrast CT chest images. Pre and postcontrast CT abdomen pelvis images obtained. Coronal and sagittal reformations were reviewed. FINDINGS: Chest: The thoracic aorta appears normal in caliber. The heart is mildly enlarged. No pericardial or pleural effusion. No pneumothorax. No pathologically enlarged mediastinal or hilar lymph nodes. No pulmonary consolidation. No acute osseous abnormality evident. Abdomen and pelvis: Gallstones in the gallbladder. The liver is cirrhotic. No hepatic mass identified. Mild splenomegaly. This pancreas and adrenal glands appear unremarkable. No hydronephrosis. A few small renal cysts noted. No renal calculus. No evidence of bowel obstruction/colitis/appendicitis. No free air. No drainable fluid collection. Negative for abdominal aortic aneurysm or dissection. There is a Cisneros catheter in the urinary bladder. No acute osseous abnormality evident. IMPRESSION: 1. No acute process in the chest. 2. Cirrhosis. 3. Splenomegaly. 4. Cholelithiasis. Electronically signed by Sarath Ray 10-21-2024 6:04 PM Abdomen/Pelvis CT 10/21/24 17:06 INDICATION: Shortness of breath. Abdominal pain. COMPARISON: No relevant priors available. TECHNIQUE: Axial CT images of the chest, abdomen and pelvis were obtained. Postcontrast CT chest images. Pre and postcontrast CT abdomen pelvis images obtained. Coronal and sagittal reformations were reviewed. FINDINGS: Chest: The thoracic aorta appears normal in caliber. The heart is mildly enlarged. No pericardial or pleural effusion. No pneumothorax. No pathologically enlarged mediastinal or hilar lymph nodes. No pulmonary consolidation. No acute osseous abnormality evident. Abdomen and pelvis: Gallstones in the gallbladder. The liver is cirrhotic. No hepatic mass identified. Mild splenomegaly. This pancreas and adrenal glands appear unremarkable. No hydronephrosis. A few small renal cysts noted. No renal calculus. No evidence of bowel obstruction/colitis/appendicitis. No free air. No drainable fluid collection. Negative for abdominal aortic aneurysm or dissection. There is a Cisneros catheter in the urinary bladder. No acute osseous abnormality evident. IMPRESSION: 1. No acute process in the chest. 2. Cirrhosis. 3. Splenomegaly. 4. Cholelithiasis. Electronically signed by Sarath Ray 10-21-2024 6:04 PM Chest X-Ray 10/23/24 03:57 EXAM: XR chest 1V portable CLINICAL HISTORY: SOB. TECHNIQUE: An X-ray image of the chest is obtained in AP projection. COMPARISON: 10/21/2024 X-RAY and CT. FINDINGS: Pulmonary Parenchyma: Diffuse bilateral interstitial thickening, reticulations, and nodularity, may represent interstitial edema, however, early infection couldn't excluded. nearly stable No evidence of consolidation, collapse, or focal opacities. No pulmonary nodules are identified. Interval new opacification of the right lower lung zone may be positional. Heart and Mediastinum: Enlarged cardiac size with bilateral hilar vascular congestion noted. No mediastinal widening or masses. No hilar or mediastinal lymphadenopathy. Bony Thorax: The bony thorax appears intact without fractures or deformities. Soft Tissues: Soft tissues overlying the chest wall are unremarkable. IMPRESSION: 1. Diffuse bilateral interstitial thickening, reticulations, and nodularity, may represent interstitial edema, however, early infection couldn't excluded. nearly stable 2. Interval new opacification of the right lower lung zone may be positional. 3. Cardiomegaly was unchanged. Electronically signed by Benji López 10-23-2024 05:02 AM Abdomen Ultrasound 10/23/24 08:54 US abdomen ltd ascites CLINICAL HISTORY: cirrhosis, volume overload, r/o ascites COMPARISON STUDY: CT of 10/21/2024 FINDINGS: 4 quadrants of the abdomen were examined with ultrasound. No ascites seen. IMPRESSION: No ascites seen. ACT 112: Negative or not required by law. Electronically signed by: Marcial Aaron M.D. 10/23/2024 10:17 AM Chest X-Ray 10/24/24 10:13 XR chest 1V portable CLINICAL HISTORY: SOB COMPARISON STUDY: 10/23/2024 FINDINGS: There are mitral valvular calcifications. There is stable cardiomegaly with pulmonary vascular congestion. There is interval mild stranding at the right lung base. No other consolidation or pleural effusion. No pneumothorax. IMPRESSION: 1. Mild CHF without pleural effusion. 2. Atelectasis versus early pneumonia right lung base. ACT 112: Negative or not required by law. Electronically signed by: Marcial Aaron M.D. 10/24/2024 10:48 AM Chest CTA 10/24/24 11:47 CT ANGIOGRAPHY OF THE CHEST, PULMONARY EMBOLUS PROTOCOL CLINICAL HISTORY: Shortness of breath. Evaluate for pulmonary embolus. COMPARISON STUDY: Chest CT October 21, 2014. Chest radiograph performed earlier today. TECHNIQUE: Following IV administration of 112 mL of Optiray, helical axial images of the chest were obtained utilizing the pulmonary embolus protocol. Maximal intensity projections and sagittal and coronal reformats were viewed on an independent 3D workstation. IV contrast was administered without complication. Automated exposure control was utilized for the study. A dose lowering technique was utilized adhering to the principles of ALARA. CT DOSE: 887.26 mGy.cm FINDINGS: This exam is moderately compromised by respiratory motion. There are several linear filling defects within bilateral lower lobe pulmonary arteries. In retrospect, these were present on prior CT. These favor chronic pulmonary emboli. No definite acute pulmonary emboli are identified. Moderate dilatation of the central pulmonary arteries is noted. There is extensive calcification of the thoracic aorta without thoracic aortic dissection. Is extensive coronary calcification. The heart is moderately enlarged. There is no pericardial effusion. No thoracic lymphadenopathy. There are postoperative findings within the left breast. Small right and trace left pleural effusions are present. There is interlobular septal thickening. Mild groundglass opacities within lungs are present. There is no consolidation to suggest pneumonia. The liver is cirrhotic. The spleen is mildly enlarged. IMPRESSION: 1. Exam moderately compromised by respiratory motion. No acute pulmonary emboli identified although segmental and subsegmental pulmonary arteries suboptimally assessed. 2. Several linear filling defects within bilateral lower lobe pulmonary arteries consistent with chronic pulmonary emboli. Dilatation of the central pulmonary arteries suggestive of pulmonary arterial hypertension. 3. Cardiomegaly with moderate interstitial edema and small right and trace left pleural effusions. 4. Cirrhotic liver. Mild splenomegaly. ACT 112: Negative or not required by law. Electronically signed by: Reese Nelson M.D. 10/24/2024 2:20 PM Venous Doppler Study 10/24/24 17:23 Exam(s): US VENOUS BILATERAL LOWER EXTREMITIES EXAM: US Duplex Bilateral Lower Extremities Veins CLINICAL HISTORY: r/o DVT. TECHNIQUE: Real-time duplex ultrasound scan of the bilateral lower extremity veins integrating B-mode two-dimensional vascular structure, Doppler spectral analysis, color flow Doppler imaging and compression. COMPARISON: No relevant prior studies available. FINDINGS: Right deep veins: No DVT in the right common femoral, femoral, proximal deep femoral or popliteal veins. The veins demonstrate normal color flow, are normally compressible, with normal phasic flow and/or augmentation response. The interrogated calf veins are patent. Right superficial veins: No thrombus in the saphenofemoral junction. Left deep veins: The left common femoral vein and proximal superficial femoral vein are patent and compressible. The left mid superficial femoral vein demonstrates eccentric hyperechoic material. The distal superficial femoral vein is not well delineated. There is similar echogenic material in the left popliteal vein with incomplete compression. There is some flow in the popliteal vein with a suggestion of collateralization. The left calf veins are not well demonstrated. Left superficial veins: Unremarkable. No thrombus in the saphenofemoral junction. Soft tissues: No acute findings. No popliteal cyst. IMPRESSION: 1. Echogenic material in the mid left superficial femoral vein and popliteal veins with some internal vascular flow. Findings are most consistent with a partially occlusive thrombus. While no prior imaging is available, the appearance suggests a subacute to chronic process with partial recanalization. 2. No proximal/central extension of the left popliteal and mid to distal left superficial vein thrombus into the left common femoral vein. 3. No evidence for deep vein thrombosis involving the right lower extremity. Electronically signed by: Mayito Santoyo MD 10/25/24 00:13 AM
[2024-10-28] MEDS: LANTUS PER UNIT CHARGE SC SCH (12:48)
[2024-10-28] MEDS ORDERED: WARFARIN SOD 2.5 MG TAB PO ONE (15:23)
--- NOTE | 2024-10-28 17:20 | Oncology Consultation ---
Date of Consultation October 28, 2024 Assessment & Plan (1) Subtherapeutic international normalized ratio (INR): (2) Paroxysmal atrial fibrillation: (3) Anemia: (4) History of DVT (deep vein thrombosis): (5) Pulmonary embolism: Plan Based on review of her labs, INR typically ranges between subtherapeutic to supratherapeutic levels. Imaging suggestive of chronic PE/DVT. Based on this, there is no evidence that she has failed Coumadin. Would recommend continuing with Coumadin however, recommend she follow-up closely with Coumadin clinic to make sure that her INR is therapeutic between 2-3. Could also consider switching to DOAC such as Eliquis/Xarelto if more affordable and assuming patient has not failed treatment with this in the past. Thank you for this consult. Will sign off at this time. Please feel free to call if you have any further questions. History of Present Illness Reason for Consultation: shelby tomlin per pulm- chronic PE, DVT Attending Physician: Alba Wyatt MD History of Present Illness 74-year-old female with multiple comorbidities including type 2 diabetes mellitu s, hypertension, heart failure with preserved EF, chronic A-fib anticoagulated on warfarin, history of DVT who presented to the ER with worsening shortness of breath on 10/21/2024. CT chest, abdomen and pelvis obtained on 10/21/2024 showed cirrhosis with splenomegaly. CT chest obtained on 10/24/2024 showed several linear filling defects within bilateral lower lobe pulmonary arteries consistent with chronic pulmonary emboli, dilation of central pulmonary arteries suggestive of pulmonary arterial hypertension and cardiomegaly with moderate interstitial edema and small right and trace left pleural effusions. Lower extremity ultrasound on 10/24/2024 showed echogenic material in the mid left superficial femoral vein and popliteal veins consistent with partially occlusive thrombus suggestive of subacute to chronic process with partial recanalization.Patient currently on Coumadin 10 mg on Sundays, Sunday, and 5 mg Sunday, Sunday, Sunday and Sunday.Current INR is 1.3. Review of labs indicate that INR has ranged between 1.3 and 4.1 over the past 3 to 4 months. Allergies Allergy/AdvReac Type Severity Reaction Status Date / Time alendronate sodium Allergy Severe DIFFICULTY Verified 10/21/24 15:12 BREATHING/BURNING SENSATION esomeprazole Allergy Intermediate Hives Verified 10/21/24 15:12 Home Medications Medication Instructions Recorded Confirmed Type albuterol sulfate 90 mcg/actuation 2 puff inhalation QID PRN 01/12/20 10/21/24 History aerosol inhaler (Ventolin HFA) Shortness Of Breath Or Wheezing fluticasone propionate 50 2 spray intranasal QAM 01/12/20 10/21/24 History mcg/actuation nasal spray,suspension (Flonase Allergy Relief) metformin 1,000 mg tablet 1,000 mg PO BIDM 01/12/20 10/21/24 History nitroglycerin 0.3 mg sublingual 0.3 mg sublingual .PRN/UD PRN 01/12/20 10/21/24 History tablet (Nitrostat) Chest Pain warfarin 5 mg tablet 5 mg PO MOWEFRSA@1600 01/12/20 10/21/24 History cholecalciferol (vitamin D3) 25 1,000 unit PO QAM #30 caps 01/19/20 10/21/24 Rx mcg (1,000 unit) capsule multivitamin (Daily-Moiz tablet) 1 tab PO QAM #30 tabs 01/19/20 10/21/24 Rx cyanocobalamin (vitamin B-12) 1,000 mcg sublingual DAILY 09/21/22 10/21/24 History 1,000 mcg sublingual tablet aspirin 81 mg tablet,delayed 81 mg PO QAM 11/15/23 10/21/24 History release insulin aspart U-100 100 unit/mL See Rx Instructions .Route .COMPLEX 11/15/23 10/21/24 History subcutaneous solution (Novolog U-100 Insulin aspart) isosorbide mononitrate 60 mg 60 mg PO QAM 11/15/23 10/21/24 History tablet,extended release 24 hr rosuvastatin 20 mg tablet 20 mg PO QAM 11/15/23 10/21/24 History potassium chloride 20 mEq 20 meq PO 3XWK #30 tabs 11/17/23 10/21/24 Rx tablet,extended release famotidine 40 mg tablet 40 mg PO DAILY 09/05/24 10/21/24 History furosemide 20 mg tablet 20 mg PO QAM #30 tabs 10/08/24 10/21/24 Rx metoprolol succinate 25 mg 12.5 mg (1/2 x 25 mg) PO QAM #15 10/08/24 10/21/24 Rx tablet,extended release 24 hr tabs warfarin 5 mg tablet 10 mg PO SUTUTH@1600 10/21/24 10/21/24 History Patient History Medical History Benign neoplasm of colon Osteoarthritis History of DVT (deep vein thrombosis) "RLE x 2 in " 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) "Abnormal left breast mammogram 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 Estrogen receptor positive and progesterone receptor positive Status post lumpectomy with sentinel lymph node biopsy stage [id number] 04/07/2015 Status post completion of radiation therapy 07/21/2015 received 6640 cGy" On 07/25/15 17:54 Jayleen Bates wrote "Abnormal left breast mammogram 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 Estrogen receptor positive and progesterone receptor positive Status post lumpectomy with sentinel lymph node biopsy stage [id number] 04/07/2015 Status post completion of radiation therapy 07/21/2015 received 6640 cGy" On 07/25/15 17:49 Jayleen Bates wrote "Abnormal left breast mammogram 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 Estrogen receptor positive and progesterone receptor positive Status post lumpectomy with sentinel lymph node biopsy stage [id number] 04/07/2015" Surgical History H/O partial mastectomy "left breast 04/2015 with lymph node biopsy" H/O arthroscopic knee surgery H/O colonoscopy History of carpal tunnel surgery S/P cervical spinal fusion S/P dilation and curettage H/O vein stripping Family History Other Breast cancer Diabetes Heart disease Social History Smoking Status: Former smoker Tobacco Type: Cigarettes Second Hand Exposure: No; Do You Dip or Chew Tobacco: No; Hx Alcohol Use: No Hx Substance Use: No Preferred Language: Italian Communication Ability: Effective 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 Beliefs That Will Affect Care: None Current Living Situation: Family Current Living Situation Comment: lives at home with and step-son Other Information That Helps Us Care for You: No Feels Safe at Home: Yes Safety Concerns: Feels Safe At This Time Assistive Devices: Nebulizer, Walker and Other Results & Data Vital Signs (Past 12 Hours) Vital Signs Temp Pulse Pulse Resp BP Pulse Ox O2 Del Method 10/28/24 14:55 36.9 C 96 H 16 135/83 96 Room Air 10/28/24 10:44 Room Air 10/28/24 07:51 79 10/28/24 07:36 98 H 19 96 BiPAP 10/28/24 07:11 36.7 C 96 H 19 112/59 L 94 Room Air FiO2 10/28/24 14:55 10/28/24 10:44 10/28/24 07:51 10/28/24 07:36 30 10/28/24 07:11
[2024-10-29 08:03] LABS: Basophils # (auto) 0.02 K/uL (0.00-0.20); Basophils % (auto) 0.2 %; Eosinophils # (auto) 0.04 K/uL (0.00-0.50); Eosinophils % (auto) 0.4 %; Hematocrit (blood only) 24.2 % (37.0-47.0); Hemoglobin 7.8 g/dl (12.0-16.0); Immature Granulocytes # (auto) 0.05 K/uL (0.01-0.20); Immature Granulocytes % (auto) 0.5 %; Lymphocytes # (auto) 1.01 K/uL (1.20-3.40); Lymphocytes % (auto) 10.6 %; Mean Corpuscular Hemoglobin 27.9 pg (25.0-34.0); Mean Corpuscular Hgb Conc 32.2 g/dL (32.0-36.0); Mean Corpuscular Volume 86.4 fL (80.0-100.0); Monocytes # (auto) 0.39 K/uL (0.11-0.59); Monocytes % (auto) 4.1 %; Neutrophils # (auto) 8.04 K/uL (1.40-6.50); Neutrophils % (auto) 84.2 %; Platelet Count 194 K/uL (130-400); RDW Coefficient of Variation 16.5 % (11.5-14.5); RDW Standard Deviation 51.7 fL (36.4-46.3); White Blood Count 9.55 K/ul (4.8-10.8)
[2024-10-29 08:24] LABS: INR 1.5 (0.9-1.1); Prothrombin Time 15.7 Seconds (9.0-12.0)
[2024-10-29 08:34] LABS: Ovalocytes 1+; Polychromasia 1+
[2024-10-29 08:46] LABS: Albumin Globulin Ratio 0.8 (0.9-2); Albumin Level 2.8 gm/dl (3.4-5.0); BUN Creatinine Ratio 19.4 (10-20); Bilirubin,Total 0.7 mg/dl (0.2-1.0); Creatinine Clr Calc Pharmacy 77.4 ml/min; Globulin 3.3 gm/dl (2.5-4.0); Magnesium 2.1 mg/dl (1.7-2.4); Potassium 3.8 mmol/L (3.5-5.1); Total Protein 6.1 gm/dl (6.0-8.3)
[2024-10-29 11:18] VITALS: RESP 18; TEMP 98.1; O2SAT 95
[2024-10-29] MEDS: LANTUS PER UNIT CHARGE SC SCH (12:23)
[2024-10-29 13:15] VITALS: BP 111/67; PULSE 96
--- NOTE | 2024-10-29 14:53 | Discharge Summary ---
Date of Service October 29, 2024 Admission HPI Per Admitting Provider This is a 74 yr old F who has a significant PMH of T2DM with skilled nursing insulin use uncontrolled, Diabetic polyneuropathy, Chronic HFpEF, HTN, HLD, COPD, Chronic atrial fibrillation anticoagulated on warfarin, GERD, B12 def, senile osteoporosis, hx of DVT, hx of breast ca, depression who presents to ED 2/2 worsening SOB x 4 days. Her is at bedside who helps elicit history. Of significance pt was hospitalized 09/06-09/11 2/2 COPD exac in setting of RSV infection. She was treated with IV Rocephin, doxycycline and pulmonary toilet. She was also in DKA with a1c of 12.2. Echo done during that admission revealed ECHO: moderate concentric LVH. EF 60 to 65%. Focal area of akinesis involving the apical inferior wall. Aortic valve moderately calcified. Mild valvular aortic stenosis. Mild mitral, tricuspid regurgitation. Estimated systolic pulmonary pressure 46 mmHg. Grade 2 diastolic dysfunction. Her troponin was elevated which was felt in setting of demand ischemia. She was then re hospitalized 09/26-10/08 2/2 acute hypoxic respiratory failure in setting of CHF decompensation. She was diuresed and discharged on lasix 20mg daily and metoprolol succ 12.5mg daily. reports weight has been down and she has been weighing around 202-203lb. Her hospital course was complicated with torsades de pointes which was felt to be 2/2 qtc prolonging meds zoloft, trazodone, lyrica and electrolye abn. She was discharged home and doing okay. She has chronic SOB. reports over the weekend she was becoming more SOB and her BSG was in the 400-500s. He states he tried to bolus her insulin and have her eat more protein/less carbs, but it was still high. He also reports increased confusion. She reports a dry cough, feeling chilled/sweats, poor appetite and not feeling well. She reports today breathing got progressively worse so called EMS. She denies documented fever. She denies sick contacts. She denies chest pain, dizziness, lightheaded, n/v/d, abd pain, dysuria, increased urg/freq with urination, hematuria, melena or hematachezia. Pt presented via EMS febrile and hypoxic requiring bipap on arrival. She received a nebulizer treatment and solumedrol on arrival. In ED pt was hypotension, tachycardic and febrile. Her Lactate was > 10, her procal is 15, BNP 1156, trop was 674.8, UA with bacturia but no leuks or nitrites. Her resp biofire was negative. She has 1.5L bolused, started on maintenance fluids and received IV Vancomycin and cefepime for broad spectrum coverage. Admission Exam Per Admitting Provider Constitutional: acute ill, toxic female, vitals as above, NAD, sitting up in bed, pleasant, conversing easily +bipap Head: Normocephalic, Atraumatic Eyes: PERRL, conjunctivae normal, anicteric sclerae ENMT: external ear and nose normal, oropharynx dry +Bipap Neck: trachea midline, no thyromegaly normal visual inspection Respiratory: normal respiratory effort, lungs clear to auscultation, no wheeze, rales, rhonchi. Normal insp/exp effort, no accessory muscle use Cardiovascular: IRR/IRR, no murmur, no edema Vessels: no JVD or carotid bruit Chest: normal inspection of chest Abdomen: normal bowel sounds, distended, soft, nontender, no hepatosplenomegaly Musculoskeletal: no cyanosis or clubbing, extremities motor strength 5/5 Skin: no rashes, warm and dry normal turgor Neurologic: PERRL, EOMI, accommodation nl, no face palsy, no dysarthria CN's II-XI intact bilaterally and moves all extremities Psychiatric: A+Ox3, euthymic affect Lymphatic: no cervical or axillary lymphadenopathy : ortega cath with yellow urine Principal Diagnosis Suspected Severe sepsis, borderline Septic Shock Lactic acidosis Discharge Exam Constitutional: WD/WN, vitals as above, NAD, sitting up in bed, pleasant, conversing easily Respiratory: normal respiratory effort, lungs clear to auscultation, no wheeze, rales, rhonchi. Normal insp/exp effort, no accessory muscle use Cardiovascular: RRR, no murmur, no edema Vessels: no JVD or carotid bruit Chest: normal inspection of chest Abdomen: normal bowel sounds, soft, nontender, no hepatosplenomegaly Musculoskeletal: no cyanosis or clubbing, extremities motor strength 5/5 Skin: no rashes, warm and dry normal turgor Neurologic: PERRL, EOMI, accommodation nl, no face palsy, no dysarthria CN's II- XI intact bilaterally and moves all extremities Psychiatric: A+Ox3, euthymic affect Discharge Data Allergies Allergy/AdvReac Type Severity Reaction Status Date / Time alendronate sodium Allergy Severe DIFFICULTY Verified 10/21/24 15:12 BREATHING/BURNING SENSATION esomeprazole Allergy Intermediate Hives Verified 10/21/24 15:12 Consultations 10/21/24 15:51 ED Decision to Admit Stat 10/21/24 18:39 Consult Smocker Routine 10/23/24 08:49 Consult Infectious Diseases Routine 10/23/24 09:50 Consult Gastroenterology Routine 10/23/24 09:52 Consult Palliative Care Routine 10/23/24 09:53 Consult Pulmonology Routine 10/28/24 08:35 Consult Hematology Routine Ordered Studies 10/21/24 16:24 CT chest with contrast [CT chest diagnostic w con] Stat 10/21/24 17:06 CT Abd and Pelvis [CT abdomen pelvis wo/w con] Stat 10/23/24 08:54 US abdomen ltd ascites Urgent 10/24/24 11:47 CT angio chest PE protocol Urgent 10/24/24 17:23 US venous doppler LE BI Routine Hospital Course (1) Severe sepsis: (2) Acute hypoxic respiratory failure: (3) DKA, type 2: (4) Lactic acidosis: (5) Chronic atrial fibrillation: (6) Supratherapeutic INR: (7) Elevated troponin: Plan Ms. 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 Admitted with severe sepsis with presumed urinary source. Pt with multiple recent admissions: Admitted 09/06-09/11 COPD exac 2/2 RSV. Admitted 09/26-10/08 2/2 acute hypoxic resp failure in setting of CHF Exacerbation Suspected Severe sepsis, borderline Septic Shock E. coli bacteremia Patient presented to the hospital with worsening shortness of breath. She was found to have E. coli bacteremia; She was treated with empiric antibiotic initially; transition to ceftriaxone. Patient was placed on oral antibiotic as per recommendation by infectious disease at the time of the discharge. Patient was discharged to rehab. Acute hypoxic respiratory failure Possible interstitial Edema Chronic Pulmonary Emboli with chronic DVT Patient was found to have pulmonary edema during the hospitalization She was treated with IV Lasix Hematology was consulted given chronic DVT and PE; recommended to continue Coumadin at the time of the discharge. Patient was saturating well on room air at the time of the discharge. Prescription for CPAP was provided to case management at the time of the discharge to be continued at the rehab. DKA uncontrolled T2DM insulin dependent on insulin pump Diabetic polyneuropathy Patient has difficulty managing insulin pump at home. She requested to be placed on glargine and NovoLog at the time of the discharge to rehab. Patient was prescribed insulin based on the requirement during the hospitalization. Plan of care discussed with the patient and patient at the bedside. Patient discharged to subacute rehab. Time spent evaluating patient, direct bedside care, chart review, placing orders, interpretation of diagnostic studies, discussion with consultants, patient, and family members, as well as other required patient management activities is 50 minutes Please note the above document was generated using voice recognition software. It may contain grammatical, syntax or spelling errors. Any formal questions or concerns about the content, text or information contained within the body of this dictation should be directly addressed to the provider for clarification Total Time Total Time Spent Total Time Spent (In Minutes): 45 Total Time Includes: Examination of the Patient, Discharge Planning, Medication Reconciliation, Communication With Other Providers and Other Discharge Plan Discharge Items Patient Disposition: Transfer Detention Fac Reason For Visit: SEVERE SEPSIS Discharge Diagnosis: Suspected Severe sepsis, borderline Septic Shock Lactic acidosis Activity: Resume your previous activity Non-emergency contact: Primary Care Provider Call non-emergency contact if: you have any medication questions and your symptoms worsen Follow-up/Referrals: Natalia Heller PA-C [Primary Care Provider] - Diet: Regular Addtl Attending Provider Instructions: You were admitted to the hospital due to infection in the blood with the bacteria called E. coli. You are treated with antibiotic during the hospitalization. You are prescribed cefuroxime 500 mg twice a day for 9 more days to complete the antibiotic course. Continue to take Coumadin as prescribed. Repeat PT/INR in 2 days; goal INR ranges between 2-3. Insulin pump has been stopped. Please take insulin as prescribed. If your fasting and postprandial blood glucose is not in range; provider at the rehab can make adjustment.Please restart back on the insulin pump after discharge from the rehab. Please use CPAP at night while at rehab. Pending Studies at Discharge: No Stand-Alone Forms: My [facility] Skilled Items Patient informed of condition?: Yes DNR: Yes Discharge Level of Care: Skilled Communicable Disease: No Discharge Prognosis: Stable Lines: None Urinary Catheter: No Medications and DC Order Prescriptions: New cefuroxime axetil 500 mg tablet 500 mg PO BID 9 Days Qty: 18 0RF insulin glargine [Lantus U-100 Insulin] 100 unit/mL Solution 70 unit SC DAILY 30 Days Qty: 21 0RF insulin aspart U-100 [Novolog U-100 Insulin aspart] 100 unit/mL Solution 15 unit SC AC Qty: 10 0RF Continued warfarin 5 mg tablet 5 mg PO MOWEFRSA@1600 cyanocobalamin (vitamin B-12) 1,000 mcg Tablet, Sublingual 1,000 mcg SUBLINGUAL DAILY multivitamin [Daily-Moiz] Tablet 1 tab PO QAM Qty: 30 0RF nitroglycerin [Nitrostat] 0.3 mg Tablet, Sublingual 0.3 mg sublingual .PRN/UD PRN (Reason: Chest Pain) Qty: 30 0RF Rx Instructions: NEDED FOR CHEST PAIN : ONE TABLET UNDER THE TONGUE EVERY 5 MINUTES UP TO THREE DOSES. famotidine 40 mg tablet 40 mg PO DAILY Qty: 30 0RF aspirin 81 mg Tablet,Delayed Release (Dr/Ec) 81 mg PO QAM Qty: 30 0RF isosorbide mononitrate 60 mg tablet extended release 24 hr 60 mg PO QAM Qty: 30 0RF metformin 1,000 mg tablet 1,000 mg PO BIDM Qty: 30 0RF warfarin 5 mg tablet 10 mg PO SUTUTH@1600 Qty: 30 0RF furosemide 20 mg Tablet 20 mg PO QAM Qty: 30 0RF metoprolol succinate 25 mg Tablet Extended Release 24 Hr 12.5 mg PO QAM Qty: 15 0RF albuterol sulfate [Ventolin HFA] 90 mcg/actuation Hfa Aerosol Inhaler 2 puff INHALATION QID PRN (Reason: Shortness Of Breath Or Wheezing) Qty: 6.7 0RF fluticasone propionate [Flonase Allergy Relief] 50 mcg/actuation [place],Suspension 2 spray INTRANASAL QAM Qty: 1 0RF cholecalciferol (vitamin D3) 25 mcg (1,000 unit) Capsule 1,000 unit PO QAM Qty: 30 0RF rosuvastatin 20 mg tablet 20 mg PO QAM Qty: 30 0RF potassium chloride 20 mEq tablet extended release 20 meq PO 3XWK Qty: 30 0RF Rx Instructions: Sunday, Sunday, and Sunday Discontinued insulin aspart U-100 [Novolog U-100 Insulin aspart] 100 unit/mL solution See Rx Instructions .ROUTE .COMPLEX Rx Instructions: Aspart via Medtronic [id number] insulin pump Basal: 2877-9617: 8 units/hr 1637-0565: 8 units/hr 2601-9793: 8.9 units/hr Total: 202.8 units Bolus: ISF: 10 ICR: 5 but uses preset dosing of 25 units with breakfast, 25 + 20 units with lunch, 25 + 15 units with supper BG Target: 100-140 Discharge Orders: Discharge Order (Routine); Ordered 10/29/24 Ordered By: Pipo Rosario Admission Data Admit Date/Time: 10/21/24 17:05 Attending Provider: Pipo Rosario Admit Provider: Dioni Wright Primary Care Provider: Natalia Heller Other Providers: [facility],Home Healthcare; Dioni Wright; Billy Ortega; Ned Staples; Serjio Grant; Cayden Dia I.; John Ayala II; Lakesha Garcia; Ralph Mckinney; Enio Valle; Erin Ceron; Maddy Myrick; Rashid Rubio; Tanya Osei; Marci Jasmine; Josselyn Anaya; [facility]; Radha Berger Other Interventions: Discharge Summary Assessment (RN) Last Done: 10/29/24 13:14
[2024-10-29 16:57] LABS: Anti Mitochondrial Antibody NEGATIVE (NEGATIVE); Anti Nuclear Antibody Screen POSITIVE (NEGATIVE); Hepatitis A Antibody IgM NON-REACTIVE (NON-REACTIVE); Hepatitis B Core Antibody IgM NON-REACTIVE (NON-REACTIVE); Smooth Muscle Antibody NEGATIVE (NEGATIVE)
[2024-10-30 09:01] LABS: Hepatitis A Antibody Total REACTIVE
--- NOTE | 2024-10-30 12:27 | Electrocardiogram Report ---
Test Reason : Blood Pressure : */* mmHG Vent. Rate : 114 BPM Atrial Rate : 114 BPM P-R Int : 126 ms QRS Dur : 88 ms QT Int : 344 ms P-R-T Axes : 86 29 -48 degrees QTcB Int : 474 ms Sinus tachycardia Nonspecific ST and T wave abnormality Abnormal ECG When compared with ECG of 22-Oct-2024 16:16, Criteria for Septal infarct are no longer Present Nonspecific T wave abnormality, worse in Lateral leads Confirmed by Gunner Stephens ([id number]) on 10/30/2024 12:27:43 PM Referred By: REFERRED SELF Confirmed By: Gunner Stephens
== END 2024-10-29 14:42 | DRG 871 ==
LOC: ED 13:59 → 1E 17:05 → SUATTDRO 17:05 → 1E 18:35 → 2S 10-22 23:10
DX: F41.0 Panic disorder [episodic paroxysmal anxiety]; Z85.3 Personal history of malignant neoplasm of breast; Z96.41 Presence of insulin pump (external) (internal); E87.5 Hyperkalemia; I27.82 Chronic pulmonary embolism; I48.0 Paroxysmal atrial fibrillation; Z79.82 Long term (current) use of aspirin; E87.20 Acidosis, unspecified; I24.89 Other forms of acute ischemic heart disease; E11.42 Type 2 diabetes mellitus with diabetic polyneuropathy; J96.01 Acute respiratory failure with hypoxia; E11.10 Type 2 diabetes mellitus with ketoacidosis without coma; N17.9 Acute kidney failure, unspecified; Z66 Do not resuscitate; E66.01 Morbid (severe) obesity due to excess calories; R65.21 Severe sepsis with septic shock; I48.20 Chronic atrial fibrillation, unspecified; A41.51 Sepsis due to Escherichia coli [E. coli]; J44.9 Chronic obstructive pulmonary disease, unspecified; Z79.01 Long term (current) use of anticoagulants; R79.1 Abnormal coagulation profile; Z87.891 Personal history of nicotine dependence; I50.32 Chronic diastolic (congestive) heart failure; K74.60 Unspecified cirrhosis of liver; I25.10 Atherosclerotic heart disease of native coronary artery without angina pectoris; E83.42 Hypomagnesemia; M81.0 Age-related osteoporosis without current pathological fracture; Z79.4 Long term (current) use of insulin; Z86.718 Personal history of other venous thrombosis and embolism; N39.0 Urinary tract infection, site not specified

== ENCOUNTER 2024-12-10 10:33 | Inpatient (IN) ==
--- NOTE | 2024-12-10 10:52 | Emergency Department Note ---
Impression & Plan GARCIA (dyspnea on exertion), CHF (congestive heart failure), COPD (chronic obstructive pulmonary disease) ED Provider Note NAME: LOUIS MOBLEY AGE: 74 SEX: F : 1950 ARRIVES VIA: Ambulance INFORMANT: Patient, ED PROVIDER(S): Radu Mobley MD CHIEF COMPLAINT: Shortness of breath MEDICAL DECISION MAKING: Patient's blood work showed a normal white count hemoglobin 8.9 with a normal platelet count. The patient's kidney function is unremarkable. VBG obtained which shows normal pCO2. Troponin to 74. Sugar of 87. BioFire negative. Chest x-ray without any acute findings. Patient initially did receive a Xopenex treatment as well as IV methylprednisolone. Patient does have a known history of heart failure and patient's weight is up approximately 6 kg from the time of her most recent admission. Deferring additional med management to the inpatient service. I did speak the on-call hospitalist AUDELIA Guillen and the patient was admitted by Dr. Hermosillo. Patient troponin is elevated but no chest pain. EKG shows some T wave inversions and ST depressions. These are new from comparison but the patient denies any chest pains. May be secondary to CHF. Discussion w/ other healthcare providers: AUDELIA Mejia and Dr. Hermosillo inpatient medicine service Prior /Outside records reviewed: None Differential diagnosis: Reactive airway disease, pneumonia, pneumothorax, COPD, CHF, ACS, pulmonary embolism, musculoskeletal, GERD as well as other pathologies were considered. Diagnostics, as interpreted by me: ECG: Normal sinus rhythm, rate of 92, normal AK and QRS prolonged QT, ST depressions and T wave inversions anteriorly and laterally. Also inferiorly. Anterior lateral depressions are new compared to prior. Cardiac monitoring: An order was placed for continuous cardiac monitoring. The monitor shows a rate of 88 with sinus rhythm. Patient was placed on pulse oximetry Medical decision rules: None Imaging studies: I informally interpreted the patient's Chest x-ray does not show obvious pneumonia or pneumothorax. Cardiomegaly noted cervical hardware also noted. with formal report to follow. HPI: Patient presents due to concern for shortness of breath. Patient reportedly developed this about 3 days ago but worsening today. Patient denies any chest pains. Patient does have GARCIA. Patient does have a known history of COPD and feels as though this may be similar. Patient said dry nonproductive cough. Non-smoker. Patient denies any leg swelling or calf pain. PAST MEDICAL HISTORY: See Below PAST SURGICAL HISTORY: See Below SOCIAL HISTORY: See Below HOME MEDICATIONS: See Below ALLERGIES: See Below VITALS: See Below PHYSICAL EXAMINATION: GENERAL: NAD, non-toxic. EYE EXAM: Normal conjunctiva. PERRL, no anisocoria and EOM's grossly intact w/o pain. OROPHARYNX: Moist mucus membranes, grossly normal dentition. NECK: Trachea midline, no stridor. LUNGS: Diminished breath sounds at the bases. Normal chest wall mechanics. HEART: NSR, no MRG. ABDOMEN: Abdomen soft, non-tender, no masses, no rebound or guarding. BACK: No CVA TTP. SKIN: No rashes and no bruising. UPPER EXTREMITIES: Upper extremities are grossly normal. LOWER EXTREMITIES: Grossly normal, no significant pitting edema. NEURO EXAM: Awake and alert, follows commands, no obvious facial asymmetry, normal speech, moves all 4 extremities. Past Med/Surg History Problem List (Updated 12/11/24 @ 14:07 by Radu Mobley MD) COPD (chronic obstructive pulmonary disease) (Acute) CHF (congestive heart failure) (Acute) GARCIA (dyspnea on exertion) (Acute) Nonspecific ST-T wave electrocardiographic changes Pulmonary hypertension Morbid obesity E coli bacteremia Anxiety Cirrhosis SOB (shortness of breath) Cardiac arrest Prolonged QT interval Torsades de pointes GERD (gastroesophageal reflux disease) Diabetic polyneuropathy Hyperlipidemia Insulin dependent type 2 diabetes mellitus Depression Elevated troponin Acute on chronic diastolic heart failure COPD exacerbation ASCVD (arteriosclerotic cardiovascular disease) HTN (hypertension) Ankle fracture, bimalleolar, closed Anemia Chronic anticoagulation (Chronic) Brittany-prosthetic fracture around prosthetic knee Osteoporosis Coronary artery disease Microvascular angina Medical History (Updated 12/11/24 @ 14:07 by Radu Mobley MD) COPD (chronic obstructive pulmonary disease) History of pulmonary embolism Chronic atrial fibrillation Benign neoplasm of colon Osteoarthritis History of DVT (deep vein thrombosis) "RLE x 2 in " 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) "Abnormal left breast mammogram 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 Estrogen receptor positive and progesterone receptor positive Status post lumpectomy with sentinel lymph node biopsy stage [id number] 04/07/2015 Status post completion of radiation therapy 07/21/2015 received 6640 cGy" On 07/25/15 17:54 Jayleen Bates wrote "Abnormal left breast mammogram 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 Estrogen receptor positive and progesterone receptor positive Status post lumpectomy with sentinel lymph node biopsy stage [id number] 04/07/2015 Status post completion of radiation therapy 07/21/2015 received 6640 cGy" On 07/25/15 17:49 Jayleen Bates wrote "Abnormal left breast mammogram 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 Estrogen receptor positive and progesterone receptor positive Status post lumpectomy with sentinel lymph node biopsy stage [id number] 04/07/2015" Surgical History H/O partial mastectomy "left breast 04/2015 with lymph node biopsy" H/O arthroscopic knee surgery H/O colonoscopy History of carpal tunnel surgery S/P cervical spinal fusion S/P dilation and curettage H/O vein stripping Family History Other Breast cancer Diabetes Heart disease Social History Smoking Status: Former smoker Tobacco Type: Cigarettes Second Hand Exposure: No; Do You Dip or Chew Tobacco: No; Hx Alcohol Use: No Hx Substance Use: No Preferred Language: Latvian Communication Ability: Effective Loader Malt House Required: No Beliefs That Will Affect Care: None Current Living Situation: Spouse and Family Current Living Situation Comment: lives at home with and step-son Other Information That Helps Us Care for You: No Feels Safe at Home: Yes Safety Concerns: Feels Safe At This Time Assistive Devices: CPAP, Scooter/Electric Scooter, Walker and Wheelchair Allergies Allergies Allergy/AdvReac Type Severity Reaction Status Date / Time alendronate sodium Allergy Severe DIFFICULTY Verified 10/21/24 15:12 BREATHING/BURNING SENSATION esomeprazole Allergy Intermediate Hives Verified 10/21/24 15:12 Home Meds Home Medications Medication Instructions Recorded Confirmed warfarin 5 mg tablet 5 mg PO QPM 01/12/20 12/10/24 cyanocobalamin (vitamin B-12) 500 mcg sublingual QAM 09/21/22 12/10/24 1,000 mcg sublingual tablet ascorbic acid (vitamin C) 1,000 mg 1,000 mg PO QAM 12/10/24 12/10/24 tablet (Vitamin C) famotidine 40 mg tablet 40 mg PO QAM 12/10/24 12/10/24 ferrous sulfate 325 mg (65 mg 325 mg PO DAILY 12/10/24 12/10/24 iron) tablet insulin aspart U-100 100 unit/mL See Rx Instructions .Route .COMPLEX 12/10/24 12/10/24 subcutaneous solution (Novolog U-100 Insulin aspart) ipratropium 0.5 mg-albuterol 3 mg 3 ml inhalation UD 12/10/24 12/10/24 (2.5 mg base)/3 mL nebulization soln metformin 1,000 mg tablet 1,000 mg PO BID 12/10/24 12/10/24 potassium chloride 20 mEq 20 meq PO DAILY 12/10/24 12/10/24 tablet,extended release umeclidinium 62.5 mcg-vilanterol 1 inh inhalation DAILY 12/10/24 12/10/24 25 mcg/actuation powdr for inhalation (Anoro Ellipta) Previous Rx's Medication Instructions Recorded albuterol sulfate 90 mcg/actuation 2 puff inhalation QID PRN 10/29/24 aerosol inhaler (Ventolin HFA) Shortness Of Breath Or Wheezing #6.7 grams aspirin 81 mg tablet,delayed 81 mg PO QAM #30 tabs 10/29/24 release cholecalciferol (vitamin D3) 25 1,000 unit PO QAM #30 caps 10/29/24 mcg (1,000 unit) capsule fluticasone propionate 50 2 spray intranasal QAM #1 mL 10/29/24 mcg/actuation nasal spray,suspension (Flonase Allergy Relief) furosemide 20 mg tablet 20 mg PO QAM #30 tabs 10/29/24 isosorbide mononitrate 60 mg 60 mg PO QAM #30 tabs 10/29/24 tablet,extended release 24 hr metoprolol succinate 25 mg 12.5 mg (1/2 x 25 mg) PO QAM #15 10/29/24 tablet,extended release 24 hr tabs multivitamin (Daily-Moiz tablet) 1 tab PO QAM #30 tabs 10/29/24 rosuvastatin 20 mg tablet 20 mg PO QAM #30 tabs 10/29/24 Results & Data (ED) Home Medications Current Medication List: was personally reviewed by me Laboratory Data Attestation: I reviewed the patient's lab results. 12/11/24 06:14 12/11/24 06:14 Lab Results 12/10/24 12/10/24 12/10/24 Range/Units 10:49 11:12 11:19 WBC 5.47 (4.8-10.8) K/ul RBC 3.39 L (4.20-5.40) M/uL Hgb 8.9 L (12.0-16.0) g/dl Hct 28.9 L (37.0-47.0) % MCV 85.3 (80.0-100.0) fL MCH 26.3 (25.0-34.0) pg MCHC 30.8 L (32.0-36.0) g/dL RDW Std Deviation 52.0 H (36.4-46.3) fL RDW Coeff of Katrin 16.6 H (11.5-14.5) % Plt Count 177 (130-400) K/uL MPV 10.9 (9.4-12.4) fL Immature Gran % (Auto) 0.2 % Neut % (Auto) 63.5 % Lymph % (Auto) 19.7 % Curry % (Auto) 9.5 % Eos % (Auto) 6.0 % Baso % (Auto) 1.1 % Neut # (Auto) 3.47 (1.40-6.50) K/uL Lymph # (Auto) 1.08 L (1.20-3.40) K/uL Curry # (Auto) 0.52 (0.11-0.59) K/uL Eos # (Auto) 0.33 (0.00-0.50) K/uL Baso # (Auto) 0.06 (0.00-0.20) K/uL Immature Gran # (Auto) 0.01 (0.01-0.20) K/uL PT 21.4 H (9.0-12.0) Seconds INR 2.1 H (0.9-1.1) APTT 32 H (21-31) Seconds PTT Ratio 1.2 VBG pH 7.36 (7.36-7.41) VBG pCO2 47 (38-50) mmHg VBG pO2 32 mmHg VBG HCO3 27 mmol/L VBG O2 Saturation < 60.0 % VBG Base Excess 0.9 mEq/L Sodium 142 (136-145) mmol/L Potassium 4.1 (3.5-5.1) mmol/L Chloride 109 H (98-107) mmol/L Carbon Dioxide 29 (21-32) mmol/L Anion Gap 4 (3-11) BUN 12 (6-23) mg/dl Creatinine 0.75 (0.6-1.2) mg/dl Est Cr Clr Drug Dosing 76.9 ml/min eGFR 82.97 BUN/Creatinine Ratio 16.0 (10-20) Glucose 87 (70-99(Fasting)) mg/dl Calcium 9.3 (8.6-10.3) mg/dl Magnesium 2.0 (1.7-2.4) mg/dl Total Bilirubin 0.6 (0.2-1.0) mg/dl AST 33 (13-39) U/L ALT 22 (7-52) U/L Alkaline Phosphatase 115 H (34-104) U/L Troponin I High Sens 74.3 H* (0-14) pg/ml Total Protein 7.0 (6.0-8.3) gm/dl Albumin 3.7 (3.4-5.0) gm/dl Globulin 3.3 (2.5-4.0) gm/dl Albumin/Globulin Ratio 1.1 (0.9-2) Adenovirus (PCR) Not Detected (NotDetected) B. pertussis DNA (PCR) Not Detected (NotDetected) B.parapertussis DNA PCR Not Detected (NotDetected) C. pneumoniae DNA (PCR) Not Detected (NotDetected) Coronavirus OC43 (PCR) Not Detected (NotDetected) Coronavirus HKU1 (PCR) Not Detected (NotDetected) Coronavirus 229E (PCR) Not Detected (NotDetected) SARS-CoV-2 (PCR) Not Detected (NotDetected) Coronavirus NL63 (PCR) Not Detected (NotDetected) Human Metapneumovir PCR Not Detected (NotDetected) Influenza Type A (PCR) Not Detected (NotDetected) Influenza Type B (PCR) Not Detected (NotDetected) M. pneumoniae (PCR) Not Detected (NotDetected) Parainfluenza 1 (PCR) Not Detected (NotDetected) Parainfluenza 2 (PCR) Not Detected (NotDetected) Parainfluenza 3 (PCR) Not Detected (NotDetected) Parainfluenza 4 (PCR) Not Detected (NotDetected) RSV (PCR) Not Detected (NotDetected) Entero/Rhino (PCR) Not Detected (NotDetected) Administered Medications Ascorbic Acid (Ascorbic Acid 500 Mg Tab) 1,000 mg PO [facility] Stop: 01/10/25 08:59 Last Admin: 12/11/24 08:15 Dose: 1,000 mg Documented By: BRANDT Aspirin (Aspirin 81 Mg Ectab) 81 mg PO [facility] Stop: 01/10/25 08:59 Last Admin: 12/11/24 08:14 Dose: 81 mg Documented By: BRANDT Cyanocobalamin (Cyanocobalamin (B-12) 500 Mcg Tablet) 500 mcg PO [facility] Stop: 01/10/25 08:59 Last Admin: 12/11/24 08:15 Dose: 500 mcg Documented By: BRANDT Famotidine (Famotidine 40 Mg Tablet) 40 mg PO [facility] Stop: 01/10/25 08:59 Last Admin: 12/11/24 08:14 Dose: 40 mg Documented By: BRANDT Ferrous Sulfate (Ferrous Sulfate 325 Mg Tab) 325 mg PO DAILY [facility] Stop: 01/10/25 08:59 Last Admin: 12/11/24 08:15 Dose: 325 mg Documented By: BRANDT Insulin Aspart (Insulin Aspart Per Unit Charge) 0 units SC ACHS [facility] Stop: 01/10/25 11:44 Last Admin: 12/11/24 11:52 Dose: 54 units Documented By: BRANDT Co-signed By: IZZY Insulin Glargine (Lantus Per Unit Charge) 80 units SC DAILY@1130 [facility] Stop: 01/10/25 11:29 Last Admin: 12/11/24 11:53 Dose: 80 units Documented By: BRANDT Co-signed By: IZZY Insulin Human NPH (Novolin-N (Nph) Per Unit Charge) 35 units SQ DAILY [facility] Stop: 01/10/25 10:44 Last Admin: 12/11/24 11:16 Dose: 35 units Documented By: BRANDT Co-signed By: CHERYL Isosorbide Mononitrate (Isosorbide Curry Extended Rel 60 Mg Tabcr) 60 mg PO QAM [facility] Stop: 01/10/25 08:59 Last Admin: 12/11/24 08:14 Dose: 60 mg Documented By: BRANDT Prednisone (Prednisone 20 Mg Tab) 40 mg PO DAILY [facility] Stop: 01/10/25 10:44 Last Admin: 12/11/24 11:00 Dose: 40 mg Documented By: BRANDT Rosuvastatin Calcium (Rosuvastatin Calcium 20 Mg Tab) 20 mg PO QAM [facility] Stop: 01/10/25 08:59 Last Admin: 12/11/24 08:14 Dose: 20 mg Documented By: BRANDT Umeclidinium/Vilanterol (Umeclidinium/Vilanterol 62.5/25mcg 7 Puffs/Inhaler) 1 puffs INH DAILY [facility] Stop: 01/10/25 08:59 Last Admin: 12/11/24 08:15 Dose: 1 puffs Documented By: BRANDT Vitamin D (Cholecalciferol 25 Mcg (1000 Units) Tab) 25 mcg PO QAM [facility] Stop: 01/10/25 08:59 Last Admin: 12/11/24 08:14 Dose: 25 mcg Documented By: BRANDT Warfarin Sodium (Warfarin Sod 5 Mg Tab) 5 mg PO DAILY@1600 [facility] Stop: 01/09/25 15:59 Last Admin: 12/10/24 15:33 Dose: 5 mg Documented By: ANGELINA Discontinued Medications Furosemide (Furosemide 40 Mg/4 Ml Vial) 40 mg IV ONE ONE Stop: 12/10/24 13:21 Last Admin: 12/10/24 13:43 Dose: 40 mg Documented By: ANGELINA Furosemide (Furosemide Inj 20 Mg/2 Ml Vial) 20 mg IV ONE ONE Stop: 12/11/24 10:32 Last Admin: 12/11/24 11:00 Dose: 20 mg Documented By: BRANDT Insulin Human Regular 10 units (/ Syringe) 10 mls @ 30 mls/min IV NOW ONE Stop: 12/11/24 07:46 Last Admin: 12/11/24 08:09 Dose: 30 mls/min Documented By: BRANDT Co-signed By: IZZY Insulin Aspart (Insulin Aspart Per Unit Charge) 0 units SC ACHS [facility] Stop: 01/09/25 16:29 Last Admin: 12/11/24 07:53 Dose: Not Given Documented By: Admin: 12/10/24 20:44 Dose: 12 units Documented By: REGGIE Co-signed By: ANA Admin: 12/10/24 16:49 Dose: 29 units Documented By: ANGELINA Co-signed By: ZACK Insulin Aspart (Insulin Aspart Per Unit Charge) 0 units SC 0000 [facility] Stop: 12/11/24 00:01 Last Admin: 12/10/24 23:58 Dose: 12 units Documented By: REGGIE Co-signed By: REGIS Insulin Aspart (Insulin Aspart Per Unit Charge) 0 units SC QDB [facility] Stop: 01/10/25 07:44 Last Admin: 12/11/24 08:09 Dose: 46 units Documented By: BRANDT Co-signed By: IZZY Insulin Glargine (Lantus Per Unit Charge) 75 units SC ONE ONE Stop: 12/10/24 16:46 Last Admin: 12/10/24 16:49 Dose: 75 units Documented By: ANGELINA Co-signed By: ZACK Levalbuterol HCl (Levalbuterol 1.25 Mg/3 Ml Neb) 2.5 mg NEB NOW STA Stop: 12/10/24 11:08 Last Admin: 12/10/24 11:17 Dose: 2.5 mg Documented By: NIGEL Methylprednisolone (Methylprednisolone 125 Mg/2 Ml Vial) 125 mg IV NOW STA Stop: 12/10/24 11:08 Last Admin: 12/10/24 11:16 Dose: 125 mg Documented By: NIGEL Metoprolol Succinate (Metoprolol Succ 25mg Ext Rel Tab) 12.5 mg PO QAM [facility] Stop: 01/10/25 08:59 Last Admin: 12/11/24 08:14 Dose: 12.5 mg Documented By: BRANDT Sodium Zirconium Cyclosilicate (Sodium Zirconium Cyclosilicate 10 Gm Packet) 10 gm PO ONCE ONE Stop: 12/11/24 07:46 Last Admin: 12/11/24 08:47 Dose: 10 gm Documented By: BRANDT Discharge Plan Visit Data Chief Complaint: Shortness of Breath/Dyspnea Stated Complaint: DIZZINESS, SOB ED Provider: Radu Mobley Discharge Problem: GARCIA (dyspnea on exertion), CHF (congestive heart failure), COPD (chronic obstructive pulmonary disease) Patient Disposition: Admitted As Inpatient Condition: Good Discharge Instructions Interventions: ED Discharge Assessment Last Done: 12/10/24 13:23 Discharge Problem: CHF (congestive heart failure) Qualifiers: Heart failure type: unspecified Heart failure chronicity: acute on chronic Q ualified Code(s): I50.9 - Heart failure, unspecified COPD (chronic obstructive pulmonary disease) Qualifiers: COPD type: unspecified COPD Qualified Code(s): J44.9 - Chronic obstructive pulmonary disease, unspecified
[2024-12-10] MEDS: methylPREDNISolone 125 MG/2 ML VIAL IV STA (11:16)
[2024-12-10] MEDS: LEVALBUTEROL 1.25 MG/3 ML NEB NEB STA (11:17)
[2024-12-10 11:21] LABS: Base Excess VBG 0.9 mEq/L; HCO3 VBG 27 mmol/L; Oxygen Saturation VBG < 60.0 %; PCO2 VBG 47 mmHg (38-50); PO2 VBG 32 mmHg; pH VBG 7.36 (7.36-7.41)
[2024-12-10 11:33] LABS: Basophils # (auto) 0.06 K/uL (0.00-0.20); Basophils % (auto) 1.1 %; Eosinophils # (auto) 0.33 K/uL (0.00-0.50); Hematocrit (blood only) 28.9 % (37.0-47.0); Hemoglobin 8.9 g/dl (12.0-16.0); Immature Granulocytes # (auto) 0.01 K/uL (0.01-0.20); Immature Granulocytes % (auto) 0.2 %; Lymphocytes # (auto) 1.08 K/uL (1.20-3.40); Lymphocytes % (auto) 19.7 %; Mean Corpuscular Hemoglobin 26.3 pg (25.0-34.0); Mean Corpuscular Hgb Conc 30.8 g/dL (32.0-36.0); Mean Corpuscular Volume 85.3 fL (80.0-100.0); Mean Platelet Volume 10.9 fL (9.4-12.4); Monocytes # (auto) 0.52 K/uL (0.11-0.59); Monocytes % (auto) 9.5 %; Neutrophils # (auto) 3.47 K/uL (1.40-6.50); Neutrophils % (auto) 63.5 %; Platelet Count 177 K/uL (130-400); RDW Coefficient of Variation 16.6 % (11.5-14.5); Red Blood Count 3.39 M/uL (4.20-5.40); White Blood Count 5.47 K/ul (4.8-10.8)
--- NOTE | 2024-12-10 11:56 | XRay Report ---
XR chest 1V portable CLINICAL HISTORY: Dyspnea COMPARISON STUDY: 10/24/2024 FINDINGS: There are mitral valvular calcifications. There is stable prominent cardiomegaly with mild pulmonary vascular congestion. No effusion, consolidation, or pneumothorax. IMPRESSION: Stable exam. No acute findings seen. ACT 112: Negative or not required by law. Electronically signed by: Marcial Aaron M.D. 12/10/2024 11:55 AM
[2024-12-10 11:59] LABS: Albumin Globulin Ratio 1.1 (0.9-2); Albumin Level 3.7 gm/dl (3.4-5.0); Bilirubin,Total 0.6 mg/dl (0.2-1.0); Calcium 9.3 mg/dl (8.6-10.3); Creatinine Clr Calc Pharmacy 76.9 ml/min; Globulin 3.3 gm/dl (2.5-4.0); Potassium 4.1 mmol/L (3.5-5.1)
[2024-12-10 12:08] LABS: INR 2.1 (0.9-1.1); Partial Thromboplastin Ratio 1.2; Partial Thromboplastin Time 32 Seconds (21-31); Prothrombin Time 21.4 Seconds (9.0-12.0)
[2024-12-10 12:19] LABS: Troponin I High Sensitivity 74.3 pg/ml (0-14)
[2024-12-10 12:25] LABS: Adenovirus PCR Not Detected (NotDetected); Bordetella parapertussis PCR Not Detected (NotDetected); Bordetella pertussis PCR Not Detected (NotDetected); Chlamydia pneumoniae PCR Not Detected (NotDetected); Coronavirus 229E PCR Not Detected (NotDetected); Coronavirus CoV-2 (COVID19)PCR Not Detected (NotDetected); Coronavirus HKU1 PCR Not Detected (NotDetected); Coronavirus NL63 PCR Not Detected (NotDetected); Coronavirus OC43PCR Not Detected (NotDetected); Human Metapneumovirus PCR Not Detected (NotDetected); Influenza A PCR Not Detected (NotDetected); Influenza B PCR Not Detected (NotDetected); Mycoplasma pneumoniae PCR Not Detected (NotDetected); Parainfluenza Virus 1 PCR Not Detected (NotDetected); Parainfluenza Virus 2 PCR Not Detected (NotDetected); Parainfluenza Virus 3 PCR Not Detected (NotDetected); Parainfluenza Virus 4 PCR Not Detected (NotDetected); Respiratory Syncytial VirusPCR Not Detected (NotDetected); Rhinovirus/Enterovirus PCR Not Detected (NotDetected)
[2024-12-10] MEDS ORDERED: ALBUT/IPRATROP 3MG/0.5MG NEB 3 ML VIAL NEB PRN (13:43)
[2024-12-10] MEDS ORDERED: GLUCOSE 10 TAB/TUBE PO PRN ×2 (13:43→15:35)
[2024-12-10] MEDS ORDERED: DEXTROSE 50% 50 ML SYRINGE IV PRN ×2 (13:43→15:35)
[2024-12-10] MEDS ORDERED: GLUCAGON FOR INJ 1 MG VIAL SQ PRN ×2 (13:43→15:35)
[2024-12-10] MEDS: FUROSEMIDE 40 MG/4 ML VIAL IV ONE (13:43)
[2024-12-10] MEDS ORDERED: INSULIN ASPART 100 UNITS/ML VIAL SC PRN (13:43)
[2024-12-10] MEDS ORDERED: GLUCOSE 40% GEL 15 GM TUBE PO PRN ×2 (13:43→15:35)
[2024-12-10] MEDS ORDERED: ACETAMINOPHEN 325 MG TAB PO PRN (13:43)
--- NOTE | 2024-12-10 13:53 | History & Physical Report ---
Date of Service December 10, 2024 Assessment & Plan (1) SOB (shortness of breath): (2) Acute on chronic diastolic heart failure: (3) Nonspecific ST-T wave electrocardiographic changes: (4) Coronary artery disease: (5) COPD (chronic obstructive pulmonary disease): Plan: Admit to telemetry Patient presenting from home for evaluation of shortness of breath. Patient followed by Cece at home and Lasix was increased to 40 mg daily (from 20 mg daily) on 12/08. In the ED, patient is saturating well on room air, CXR is unremarkable. proBNP 471. HS troponin 74 -> 89. EKG shows worsening T wave inversions in the inferior leads and new T wave inversions in the lateral leads. Patient was given nebulizer treatment and Solu-Medrol 125 mg. BioFire negative Patient currently saturating well on room air, no wheezing on exam therefore doubt COPD exacerbation Note 6 kg weight gain from admission in October and reported lower extremity edema -- will treat for acute on chronic HFpEF. Give Lasix 40mg IV x 1. 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 Continue PAVILION CUTTER dose Coumadin 5 mg daily (7) History of DVT (deep vein thrombosis): (8) History of pulmonary embolism: Plan: Anticoagulated on Coumadin, INR 2.1. Continue PAVILION CUTTER dose Coumadin 5 mg daily (9) Insulin dependent type 2 diabetes mellitus: Plan: Hgb A1c 12.2 09/2024 Hold PAVILION CUTTER metformin Patient to use own insulin pump per protocol (10) Anemia: Plan: Hgb 8.9, at recent baseline Continue to monitor CBC DVT prophylaxis On Coumadin Patient seen in collaboration with Dr. Hermosillo. I spent a total of 75 minutes coordinating, documenting, and providing care for this patient excluding time spent in the performance of separately billed services. This included personally reviewing all current laboratories and imaging studies, medication reconciliation, outpatient chart review, and discussion with specialists. Admission and Anticipated Discharge Date Admission Date: December 10, 2024 History of Present Illness Chief Complaint: Shortness of breath Primary Care Provider: Natalia Heller PA-C 74-year-old female with PMH DM type II on insulin pump, diabetic polyneuropathy, dyslipidemia, COPD, chronic atrial fibrillation anticoagulated on Coumadin, CAD, chronic HFpEF, GERD, history of DVT and PE, breast cancer, anxiety, depression, and other problems listed below who presents to the ED for evaluation of shortness of breath. Patient reports a longstanding history of shortness of breath due to underlying COPD. Patient reports that she had been doing fairly well over the past week however developed worsening shortness of breath and lower extremity edema a couple of days ago. Patient is followed by Cece at home and provider increased patient's Lasix to 40 mg daily ( from 20 mg daily) x 3 days, today was to be the last day of increased dose. Patient reports feeling improved yesterday however when she woke up this morning, she felt very dizzy and short of breath. Patient then presented to the ED for further evaluation. She denies chest pain and palpitations. No cough or sputum production. Had some mild nausea but denies vomiting or abdominal pain. No urinary symptoms. In the ED, patient is saturating well on room air, CXR is unremarkable. proBNP 471. HS troponin 74 -> 89. EKG shows worsening T wave inversions in the inferior leads and new T wave inversions in the lateral leads. Patient was given nebulizer treatment and Solu-Medrol 125 mg. Allergies Allergy/AdvReac Type Severity Reaction Status Date / Time alendronate sodium Allergy Severe DIFFICULTY Verified 10/21/24 15:12 BREATHING/BURNING SENSATION esomeprazole Allergy Intermediate Hives Verified 10/21/24 15:12 Home Medications Medication Instructions Recorded Confirmed Type warfarin 5 mg tablet 5 mg PO QPM 01/12/20 12/10/24 History cyanocobalamin (vitamin B-12) 500 mcg sublingual QAM 09/21/22 12/10/24 History 1,000 mcg sublingual tablet albuterol sulfate 90 mcg/actuation 2 puff inhalation QID PRN 10/29/24 12/10/24 Rx aerosol inhaler (Ventolin HFA) Shortness Of Breath Or Wheezing #6.7 grams aspirin 81 mg tablet,delayed 81 mg PO QAM #30 tabs 10/29/24 12/10/24 Rx release cholecalciferol (vitamin D3) 25 1,000 unit PO QAM #30 caps 10/29/24 12/10/24 Rx mcg (1,000 unit) capsule fluticasone propionate 50 2 spray intranasal QAM #1 mL 10/29/24 12/10/24 Rx mcg/actuation nasal spray,suspension (Flonase Allergy Relief) furosemide 20 mg tablet 20 mg PO QAM #30 tabs 10/29/24 12/10/24 Rx isosorbide mononitrate 60 mg 60 mg PO QAM #30 tabs 10/29/24 12/10/24 Rx tablet,extended release 24 hr metoprolol succinate 25 mg 12.5 mg (1/2 x 25 mg) PO QAM #15 10/29/24 12/10/24 Rx tablet,extended release 24 hr tabs multivitamin (Daily-Moiz tablet) 1 tab PO QAM #30 tabs 10/29/24 12/10/24 Rx rosuvastatin 20 mg tablet 20 mg PO QAM #30 tabs 10/29/24 12/10/24 Rx ascorbic acid (vitamin C) 1,000 mg 1,000 mg PO QAM 12/10/24 12/10/24 History tablet (Vitamin C) famotidine 40 mg tablet 40 mg PO QAM 12/10/24 12/10/24 History ferrous sulfate 325 mg (65 mg 325 mg PO DAILY 12/10/24 12/10/24 History iron) tablet ipratropium 0.5 mg-albuterol 3 mg 3 ml inhalation UD 12/10/24 12/10/24 History (2.5 mg base)/3 mL nebulization soln metformin 1,000 mg tablet 1,000 mg PO BID 12/10/24 12/10/24 History potassium chloride 20 mEq 20 meq PO DAILY 12/10/24 12/10/24 History tablet,extended release umeclidinium 62.5 mcg-vilanterol 1 inh inhalation DAILY 12/10/24 12/10/24 History 25 mcg/actuation powdr for inhalation (Anoro Ellipta) Past Med/Surg History Problem List (Updated 12/10/24 @ 14:07 by AUDELIA Pastrana) Nonspecific ST-T wave electrocardiographic changes Pulmonary hypertension Morbid obesity E coli bacteremia Anxiety Cirrhosis SOB (shortness of breath) Cardiac arrest Prolonged QT interval Torsades de pointes GERD (gastroesophageal reflux disease) Diabetic polyneuropathy Hyperlipidemia Insulin dependent type 2 diabetes mellitus Depression Elevated troponin Acute on chronic diastolic heart failure COPD exacerbation ASCVD (arteriosclerotic cardiovascular disease) HTN (hypertension) Ankle fracture, bimalleolar, closed Anemia Chronic anticoagulation (Chronic) Brittany-prosthetic fracture around prosthetic knee Osteoporosis Coronary artery disease Microvascular angina Medical History (Updated 12/10/24 @ 14:07 by AUDELIA Pastrana) COPD (chronic obstructive pulmonary disease) History of pulmonary embolism Chronic atrial fibrillation Benign neoplasm of colon Osteoarthritis History of DVT (deep vein thrombosis) "RLE x 2 in " 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) "Abnormal left breast mammogram 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 Estrogen receptor positive and progesterone receptor positive Status post lumpectomy with sentinel lymph node biopsy stage [id number] 04/07/2015 Status post completion of radiation therapy 07/21/2015 received 6640 cGy" On 07/25/15 17:54 Jayleen Bates wrote "Abnormal left breast mammogram 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 Estrogen receptor positive and progesterone receptor positive Status post lumpectomy with sentinel lymph node biopsy stage [id number] 04/07/2015 Status post completion of radiation therapy 07/21/2015 received 6640 cGy" On 07/25/15 17:49 Jayleen Bates wrote "Abnormal left breast mammogram 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 Estrogen receptor positive and progesterone receptor positive Status post lumpectomy with sentinel lymph node biopsy stage [id number] 04/07/2015" Surgical History H/O partial mastectomy "left breast 04/2015 with lymph node biopsy" H/O arthroscopic knee surgery H/O colonoscopy History of carpal tunnel surgery S/P cervical spinal fusion S/P dilation and curettage H/O vein stripping Family History Other Breast cancer Diabetes Heart disease Social History Smoking Status: Former smoker Tobacco Type: Cigarettes Second Hand Exposure: No; Do You Dip or Chew Tobacco: No; Hx Alcohol Use: No Hx Substance Use: No Preferred Language: Polish Communication Ability: Effective Accounts Officer Required: No Beliefs That Will Affect Care: None Current Living Situation: Spouse and Family Current Living Situation Comment: lives at home with and step-son Other Information That Helps Us Care for You: No Feels Safe at Home: Yes Safety Concerns: Feels Safe At This Time Assistive Devices: Glasses, Nebulizer, Walker and Other Physical Exam Physical Exam: please refer to Dr. Hermosillo's addendum for physical exam Results & Data Results & Data Vital Signs (Past 12 Hours) Vital Signs Temp Pulse Pulse Resp BP BP Pulse Ox 12/10/24 13:00 100 H 18 122/81 92 12/10/24 12:32 100 H 22 124/76 100 12/10/24 12:01 93 H 12/10/24 11:13 92 12/10/24 10:53 12/10/24 10:25 36.9 C 97 H 22 127/73 93 O2 Del Method 12/10/24 13:00 Room Air 12/10/24 12:32 Nebulizer 12/10/24 12:01 12/10/24 11:13 Room Air 12/10/24 10:53 Room Air 12/10/24 10:25 Room Air Laboratory Results Short CBC 12/10/24 Range/Units 10:49 WBC 5.47 (4.8-10.8) K/ul Hgb 8.9 L (12.0-16.0) g/dl Hct 28.9 L (37.0-47.0) % Plt Count 177 (130-400) K/uL BMP 12/10/24 10:49 Sodium 142 Potassium 4.1 Chloride 109 H Carbon Dioxide 29 BUN 12 Creatinine 0.75 Glucose 87 Calcium 9.3 Liver Function 12/10/24 Range/Units 10:49 Total Bilirubin 0.6 (0.2-1.0) mg/dl AST 33 (13-39) U/L ALT 22 (7-52) U/L Alkaline Phosphatase 115 H (34-104) U/L Albumin 3.7 (3.4-5.0) gm/dl Diagnostic Findings Chest X-Ray 12/10/24 11:07 XR chest 1V portable CLINICAL HISTORY: Dyspnea COMPARISON STUDY: 10/24/2024 FINDINGS: There are mitral valvular calcifications. There is stable prominent c ardiomegaly with mild pulmonary vascular congestion. No effusion, consolidation, or pneumothorax. IMPRESSION: Stable exam. No acute findings seen. ACT 112: Negative or not required by law. Electronically signed by: Marcial Aaron M.D. 12/10/2024 11:55 AM Supervising Physician Co-Signing Physician Notes Presented with dizziness that started today Per patient and , patient has SOB with activity and increased leg swelling recently for which she was advised to increase her home lasix to 40mg daily for 3 days. Denied chest pain, palpitation, wheezing, congestion, sorethroat, fever or chills On exam, General: Elderly woman in no distress Eyes: PERRL, conjunctivae normal, not pale, anicteric sclerae, EOM intact bilaterally ENMT: External ear and nose normal, oropharynx normal Respiratory: Normal respiratory effort, no respiratory distress, diminished breath sounds Cardiovascular: Normal rate and rhythm +murmur Gastrointestinal (Abdomen): Abdomen is not distended, soft, non-tender to palpation, no guarding, no palpable hepatosplenomegaly, normal bowel sounds Musculoskeletal: +pedal edema Neurologic: Alert and oriented to person, place and year, No focal weakness, sensation grossly intact Psychiatric: Euthymic affect Labs notable for Hb of 8.9, INR therapeutic at 2.1, Trop 74.3, BNP 471 CXR did not show acute findings Patient's hx of SOB, increased leg swelling requiring increased lasix over the past 3 days, increased weight from 96K in October to 102Kg today suggests acute on chronic diastolic Heart failure Review of EKG also noted new T wave changes in inferior lateral leads. IV lasix 40mg daily Daily weights, I/O Cards consult Trend trop. Limited Echo I spent a total of 40 minutes coordinating, documenting and providing care for this patient excluding time spent in performance of separately billed services (4) Coronary artery disease Associated angina: unspecified whether angina present Coronary Disease- Associated Artery/Lesion type: unspecified vessel or lesion type [place] vs. transplanted heart: [place] heart Qualified Code(s): I25.10 - Atherosclerotic heart disease of [place] coronary artery without angina pectoris
--- NOTE | 2024-12-10 15:19 | Cardiology Consultation ---
Date of Consultation December 10, 2024 Assessment & Plan (1) Acute on chronic diastolic heart failure: * Patient endorses symptoms of dyspnea on exertion without chest discomfort. Weight is trended up since most recent discharge for sepsis. * Mild troponin elevation, 74 and then 89 PG per mL thus far, relatively flat trend * Has substrate for underlying ischemia with known chronic total occlusion of the right coronary artery * As noted, has mild lateral repolarization abnormalities, but there is actually less prominent compared to that which was noted at the time of cardiac catheterization in 2023 * Agree with furosemide 40 mg x 1 administered in the emergency department, will reassess dosing tomorrow clinically and based on laboratory studies. * Continue warfarin for stroke prophylaxis * Continue metoprolol, aspirin, isosorbide mononitrate, rosuvastatin (2) Prolonged QT interval: * History of torsades de pointes. Previous treatment with sertraline, trazodone, Lyrica discontinued during hospital stay in September, and not resumed. * Avoid QT prolonging agent (3) Chronic atrial fibrillation: * Continue metoprolol for rate control, may need to be titrated, continue warfarin, goal INR 23 History of Present Illness Attending Physician: Nereyda Hermosillo MD History of Present Illness Graciela Mobley ia a 74 year old female seen in cardiology consultation per the request of AUDELIA Pastrana for the evaluation of shortness of breath. Patient describes a week of of progressive shortness of breath culminating in presentation to the emergency department today. Denies chest discomfort. Cardiac History 1.Permanent atrial fibrillation--on metoprolol and digoxin. Intolerance to higher doses of beta-adis due to COPD. 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 During hospitalization in September, for acute diastolic heart failure, patient had episode of torsade de pointes requiring transient chest compressions with spontaneous return of circulation. QT prolonging agents including sertraline, trazodone, Lyrica discontinued at that time and not reinitiated Allergies Allergy/AdvReac Type Severity Reaction Status Date / Time alendronate sodium Allergy Severe DIFFICULTY Verified 10/21/24 15:12 BREATHING/BURNING SENSATION esomeprazole Allergy Intermediate Hives Verified 10/21/24 15:12 Home Medications Medication Instructions Recorded Confirmed Type warfarin 5 mg tablet 5 mg PO QPM 01/12/20 12/10/24 History cyanocobalamin (vitamin B-12) 500 mcg sublingual QAM 09/21/22 12/10/24 History 1,000 mcg sublingual tablet albuterol sulfate 90 mcg/actuation 2 puff inhalation QID PRN 10/29/24 12/10/24 Rx aerosol inhaler (Ventolin HFA) Shortness Of Breath Or Wheezing #6.7 grams aspirin 81 mg tablet,delayed 81 mg PO QAM #30 tabs 10/29/24 12/10/24 Rx release cholecalciferol (vitamin D3) 25 1,000 unit PO QAM #30 caps 10/29/24 12/10/24 Rx mcg (1,000 unit) capsule fluticasone propionate 50 2 spray intranasal QAM #1 mL 10/29/24 12/10/24 Rx mcg/actuation nasal spray,suspension (Flonase Allergy Relief) furosemide 20 mg tablet 20 mg PO QAM #30 tabs 10/29/24 12/10/24 Rx isosorbide mononitrate 60 mg 60 mg PO QAM #30 tabs 10/29/24 12/10/24 Rx tablet,extended release 24 hr metoprolol succinate 25 mg 12.5 mg (1/2 x 25 mg) PO QAM #15 10/29/24 12/10/24 Rx tablet,extended release 24 hr tabs multivitamin (Daily-Moiz tablet) 1 tab PO QAM #30 tabs 10/29/24 12/10/24 Rx rosuvastatin 20 mg tablet 20 mg PO QAM #30 tabs 10/29/24 12/10/24 Rx ascorbic acid (vitamin C) 1,000 mg 1,000 mg PO QAM 12/10/24 12/10/24 History tablet (Vitamin C) famotidine 40 mg tablet 40 mg PO QAM 12/10/24 12/10/24 History ferrous sulfate 325 mg (65 mg 325 mg PO DAILY 12/10/24 12/10/24 History iron) tablet insulin aspart U-100 100 unit/mL See Rx Instructions .Route .COMPLEX 12/10/24 12/10/24 History subcutaneous solution (Novolog U-100 Insulin aspart) ipratropium 0.5 mg-albuterol 3 mg 3 ml inhalation UD 12/10/24 12/10/24 History (2.5 mg base)/3 mL nebulization soln metformin 1,000 mg tablet 1,000 mg PO BID 12/10/24 12/10/24 History potassium chloride 20 mEq 20 meq PO DAILY 12/10/24 12/10/24 History tablet,extended release umeclidinium 62.5 mcg-vilanterol 1 inh inhalation DAILY 12/10/24 12/10/24 History 25 mcg/actuation powdr for inhalation (Anoro Ellipta) Patient History Medical History (Updated 12/10/24 @ 14:07 by AUDELIA Pastrana) COPD (chronic obstructive pulmonary disease) History of pulmonary embolism Chronic atrial fibrillation Benign neoplasm of colon Osteoarthritis History of DVT (deep vein thrombosis) "RLE x 2 in 1980s" 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) "Abnormal left breast mammogram 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 Estrogen receptor positive and progesterone receptor positive Status post lumpectomy with sentinel lymph node biopsy stage [id number] 04/07/2015 Status post completion of radiation therapy 07/21/2015 received 6640 cGy" On 07/25/15 17:54 Jayleen Bates wrote "Abnormal left breast mammogram 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 Estrogen receptor positive and progesterone receptor positive Status post lumpectomy with sentinel lymph node biopsy stage [id number] 04/07/2015 Status post completion of radiation therapy 07/21/2015 received 6640 cGy" On 07/25/15 17:49 Jayleen Bates wrote "Abnormal left breast mammogram 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 Estrogen receptor positive and progesterone receptor positive Status post lumpectomy with sentinel lymph node biopsy stage [id number] 04/07/2015" Surgical History H/O partial mastectomy "left breast 04/2015 with lymph node biopsy" H/O arthroscopic knee surgery H/O colonoscopy History of carpal tunnel surgery S/P cervical spinal fusion S/P dilation and curettage H/O vein stripping Family History Other Breast cancer Diabetes Heart disease Social History Smoking Status: Former smoker Tobacco Type: Cigarettes Second Hand Exposure: No; Do You Dip or Chew Tobacco: No; Hx Alcohol Use: No Hx Substance Use: No Preferred Language: Syrian Communication Ability: Effective Museum Or Zoo Director Required: No Beliefs That Will Affect Care: None Current Living Situation: Spouse and Family Current Living Situation Comment: lives at home with and step-son Other Information That Helps Us Care for You: No Feels Safe at Home: Yes Safety Concerns: Feels Safe At This Time Assistive Devices: Glasses, Nebulizer, Walker and Other Physical Exam Physical Exam: Temp Pulse Resp BP Pulse Ox O2 Del Method 36.5 C 109 H 17 139/74 90 Room Air 12/10/24 13:57 12/10/24 14:52 12/10/24 13:57 12/10/24 13:57 12/10/24 13:57 12/10/24 13:57 General: no acute distress and stated age Eyes: conjunctiva are pink and non-injected, sclera clear Neck: normal jugular venous pulse, no hepatojugular reflux Chest: normal shape and normal respiratory effort Lungs: Mildly decreased breath sounds at the bases Cardiac Exam: -Irregular rhythm, 2/6 systolic murmur heard best at the right sternal border Abdomen: abdomen soft, non-tender, no abnormal masses and no hepatosplenomegaly Musculoskeletal: no gait disturbance, no weakness Extremities: no edema and no cyanosis Neuro:awake, conversant, follows commands, no focal motor deficits Psych: appropriate affect and insight. Results & Data Vital Signs (Past 12 Hours) Vital Signs Temp Pulse Pulse Resp BP BP Pulse Ox 12/10/24 14:52 109 H 12/10/24 13:57 36.5 C 103 H 17 139/74 90 12/10/24 13:43 36.5 C 103 H 17 139/74 90 12/10/24 13:00 100 H 18 122/81 92 12/10/24 12:32 100 H 22 124/76 100 12/10/24 12:01 93 H 12/10/24 11:13 92 12/10/24 10:53 12/10/24 10:25 36.9 C 97 H 22 127/73 93 O2 Del Method 12/10/24 14:52 12/10/24 13:57 Room Air 12/10/24 13:43 Room Air 12/10/24 13:00 Room Air 12/10/24 12:32 Nebulizer 12/10/24 12:01 12/10/24 11:13 Room Air 12/10/24 10:53 Room Air 12/10/24 10:25 Room Air Laboratory Results Cardiac Enzymes 12/10/24 12/10/24 Range/Units 10:49 12:56 AST 33 (13-39) U/L Troponin I High Sens 74.3 H* 89.3 H* D (0-14) pg/ml B-Natriuretic Peptide 471 H (0-100) pg/ml Coagulation 12/10/24 12/10/24 Range/Units 10:49 12:56 PT 21.4 H (9.0-12.0) Seconds APTT 32 H (21-31) Seconds B-Natriuretic Peptide 471 H (0-100) pg/ml CBC 12/10/24 Range/Units 10:49 WBC 5.47 (4.8-10.8) K/ul RBC 3.39 L (4.20-5.40) M/uL Hgb 8.9 L (12.0-16.0) g/dl Hct 28.9 L (37.0-47.0) % Plt Count 177 (130-400) K/uL Neut # (Auto) 3.47 (1.40-6.50) K/uL Lymph # (Auto) 1.08 L (1.20-3.40) K/uL [place] # (Auto) 0.52 (0.11-0.59) K/uL Eos # (Auto) 0.33 (0.00-0.50) K/uL Baso # (Auto) 0.06 (0.00-0.20) K/uL Comprehensive Metabolic Panel 12/10/24 Range/Units 10:49 Sodium 142 (136-145) mmol/L Potassium 4.1 (3.5-5.1) mmol/L Chloride 109 H (98-107) mmol/L Carbon Dioxide 29 (21-32) mmol/L BUN 12 (6-23) mg/dl Creatinine 0.75 (0.6-1.2) mg/dl Glucose 87 (70-99(Fasting)) mg/dl Calcium 9.3 (8.6-10.3) mg/dl AST 33 (13-39) U/L ALT 22 (7-52) U/L Alkaline Phosphatase 115 H (34-104) U/L Total Protein 7.0 (6.0-8.3) gm/dl Albumin 3.7 (3.4-5.0) gm/dl INR 2.1 Diagnostic Findings Summary of transthoracic echocardiogram performed today 12/10/2024 and interpreted independently: The study is technically adequate for the evaluation of the referral indication. A limited study was performed in follow-up due to symptoms of dyspnea and repolarization abnormalities on EKG. Limited, goal-directed views were obtained with recent complete study having been performed on 10/22/2024. There is mild concentric left ventricular hypertrophy. The left ventricle is hyperdynamic. Left Ventricular Ejection Fraction = >70 %. No regional wall motion abnormalities noted. Moderate valvular aortic stenosis. Trace aortic regurgitation. There is severe mitral annular calcification. There is mild mitral regurgitation. There is mild tricuspid regurgitation. The right ventricular systolic pressure is estimated to be 50 mmHg (mild to moderately elevated). Compared to the previous study dated 10/22/2024, mild aortic stenosis was noted at that time. The interval difference with moderate stenosis noted on the present study may be related to improved Doppler assessment of the left ventricular outflow tract or related to the hyperdynamic LV systolic function. EKG performed today 12/10/2024 at 10:44 AM and interpreted independently: Atrial fibrillation at [address] segment depression and T wave inversions noted in the precordial leads V4 to V6.QT interval mildly prolonged at 494 ms - Compared to the previous tracing dated 10/24/2024, sinus rhythm has replaced atrial fibrillation with rapid ventricular response. - The lateral repolarization abnormalities are more prominent than that which was observed on previous recent tracings while the patient was in sinus rhythm. The repolarization abnormalities are actually less prominent than that which was noted on EKG tracings within the [facility] , in and around the time of the patient's cardiac catheterization which was performed in November, at [facility] Chest x-ray performed today: Suboptimal study, mild interstitial edema cannot be excluded based on my interpretation of the film.
[2024-12-10] MEDS: WARFARIN SOD 5 MG TAB PO SCH (15:33)
[2024-12-10] MEDS ORDERED: PHARMACY GLYCEMIC MGMT CONSULT PRN (15:34)
[2024-12-10] MEDS ORDERED: CARBOHYDRATES FOR HYPOGLYCEMIA PO PRN (15:35)
[2024-12-10] MEDS ORDERED: INSULIN, Rapid-Acting PUMP SC SCH (16:30)
[2024-12-10] MEDS ORDERED: LANTUS PER UNIT CHARGE SC ONE (16:30)
[2024-12-10] MEDS ORDERED: INSULIN ASPART PER UNIT CHARGE SC SCH (16:30)
--- OUTSIDE RECORDS SUMMARY | 2024-12-10 16:42 | External Medical Summary | Summary of Care ---
Author Name Unknown Organization [facility] Address [address] [place] [address] Phone [phone] Care Team Providers Care Glove Pairer Name Role Phone Natalia Heller PA-C Primary Care Provider [phone] Reason for Visit * Reason Onset Date Comments [facility]: Maintenance 12/09/2024 Encounter Details Date Type Department Care Team (Late st Contact Info) Description 12/09/2024 1:15 PM EDT Scheduled Telephone [facility], [facility] [address] [place] [address] [facility], Nurse [facility] [address] [place] [address] Allergies Active Allergy Reactions Criticality Noted Date Comments Alendronate Sodium 06/24/2012 Burning sensation and difficulty breathing Proton Pump Inhibitors Hives 02/20/2002 nexium documented as of this encounter (statuses as of 12/09/2024) Medications Multiple Vitamin (DAILY VALUE MULTIVITAMIN) Tablet [...] controlled, with peripheral vascular disorder ([facility]) Use as directed. 4 Active Accu-Chek Softclix LancetsIndication s:Type 2 diabetes mellitus with foot ulcer, with long-term current use of insulin (HCC),DM (diabetes mellitus) type II, controlled, with peripheral vascular disorder ([facility]) Use to test blood glucose 4 times daily. DX: E11.9 400 Each 3 10/05/2023 6:57 AM EST 4 Active Rosuvastatin Calcium 20 MG Oral Tablet (Crestor)Indicati ons:Dyslipidemia, goal LDL below 70 Take 1 Tablet by mouth in the morning. 90 Tablet 3 05/20/2024 6:57 AM EDT 4 Active Aspirin 81 MG Oral Tablet Delayed Release Take 1 Tablet by mouth in the morning. 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 90 Capsule 10/13/2024 7:59 AM EDT 5 Active Additional Information Patient taking differently: 20 mEqOral Daily(AM),Every Sunday, Sunday, and Sunday, Reported on 12/08/2024 Anoro Ellipta 62.5-25 MCG/ACT Inhalation Aerosol Powder Breath Activated (umeclidinium-iain anterol)Indicatio ns:COPD, moderate (HCC) Inhale 1 Puff by mouth in the morning. 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 Use as directed. 1 Each 1 5 Active Nebulizer/Tubing/ Mouthpiece KitIndications:SO B (shortness of breath),COPD, moderate (HCC) Use to nebulize medication 1 Kit 1 5 Active LORazepam 0.5 MG Oral Tablet (Ativan) Take 1 Tablet by mouth every 6 hours as needed. Active Vitamin B-12 1000 MCG Sublingual Tablet Sublingual Place 1 Tablet under the tongue in the morning. Active Vitamin D-3 25 MCG (1000 UT) Oral Capsule Take 1 Capsule by mouth in the morning. Active Insulin Aspart 100 UNIT/ML Injection Solution (NovoLOG)Indicati ons:Type 2 diabetes mellitus with foot ulcer, with long-term current use of insulin (HCC) 270 units daily in pump 80 mL 4 12/05/2024 10:15 AM EDT 5 Active Metoprolol Succinate ER 25 MG Oral Tablet Extended Release 24 Hour (toPROL XL) Take 12.5 mg by mouth once daily 45 Tablet 3 5 Active Hospital, Clinic, or Other Facility Administered Medication Ordered Dose Route Frequency Start Date End Date Status Albuterol Sulfate (Proventil) (2.5 MG/3ML) 0.083% inhalation solution 2.5 mgIndications:COPD with exacerbation (HCC),SOB (shortness of breath),Asthma with COPD (chronic obstructive pulmonary disease) (HCC) 2.5 mg NEBULIZER PRN 08/21/2024 08/21/2025 Active documented as of this encounter (statuses as of 12/09/2024) Active Problems Problem Noted Date Diagnosed Date [...] artery disease of n ative artery of ewiiaapaayp heart with stable angina pectoris 12/08/2020 Assessment [...] CARDIOLOGY REFERRAL OP 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 0 05/03/2005 Assessment & Plan (10/14/2024 1:10 PM EDT): Orders: CARDIOLOGY REFERRAL OP Warfarin Sodium 5 MG Oral Tablet (Coumadin); TAKE ONE TABLET TO ONE AND ONE-HALF TABLET BY MOUTH EVERY DAY DIRECTED BY [facility]ADIN CLINIC documented as of this encounter (statuses as of 12/09/2024) Resolved Problems Problem Noted Date Diagnosed Date [...] as of this encounter (statuses as of 12/09/2024) Immunizations Name Administration Dates Next Due COVID-19 mRNA, LNP-s, No Pre serve, 2-Dose Series (Moderna) 10/13/2020,09/15/2020 COVID-19, mRNA, LNP-s, PF, B ooster, 100mcg/0.5mg (Moderna) 07/20/2021 Covid-19, Mrna, Lnp-s, Pf, B ivalent, 30 Mcg, IM, 12 yrs and above ([employer]) 05/08/2022 Pneumococcal Conjugate Vacc, 13 Valent (Prevnar) [...] 10 and older)(Boostrix) 09/15/2014 Varicella Zoster Vaccine True lt (Zostavax) 02/23/2017 Zoster Vaccine Recombinant (Shingrix) 06/11/2024 documented [...] Not on file 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 Not on f ile Not [...] doing errands alone such as visiting a doctor’s office or shopping? (15 years old or [...] encounter Miscellaneous Notes * Telephone Encounter - Marci Crespo RN - 12/09/2024 10:41 AM EDT [facility] Telephonic Nurse Follow-Up Call [facility] Subprogram: Focused Care Management (3-9 months) Follow Up Call Type: 24 hour follow up Acute issue requiring follow-up call: Other: follow up on 12/08 HV , SOB, increased edema Objective: 12/08/2024 10:43 AM 12/08/2024 10:40 AM 11/26/2024 10:08 AM 11/19/2024 11:11 AM 11/17/2024 12:24 PM VITALS ACROSS ENCOUNTERS BP 128/62 142/68 120/60 113/48 118/62 Pulse 92 76 91 87 Weight 92.1 kg 92.4 kg BMI 33.78 33.91 BMI 33.78 kg/m2 33.91 kg/m2 Remote Patient Monitoring: NONE Oxygen Needs: NO supplemental oxygen needs identified DME Needs: Nebulizer machine and supplies Medications: Current DTP: Double dose of Furosemide for 3 days Subjective: Condition Status: Improvement in symptoms but not at baseline Current Concerns: Called and spoke with patient, she stated "she feels good today" Denies any SOB, had a nebulizer treatment this morning. Edema in legs has improved "but may be worse later today" Reminded patient to elevate legs as much as possible and continue 3 day DTP of double Lasix. Call [facility] if condition changes or worsens. Disposition: Follow up call scheduled for tomorrow with UNDRAPED ARTIST MODEL Dna Sequencing Associate Future Visits Scheduled: Future Appointments-next 60 days Date/Time Provider Specialty Dept Phone 12/09/2024 1:15 PM [facility] Nurse [facility] [phone] 12/10/2024 10:30 AM [facility] Nurse [facility] [phone] 01/05/2025 10:00 AM Rosalind Smith RN [facility] [phone] 01/14/2025 10:00 AM [facility] [phone] 01/14/2025 10:10 AM [facility] [phone] 02/18/2025 12:00 PM (Arrive by 11:45 AM) Natalia Heller PA-C Family Medicine [phone] 04/20/2025 8:40 AM (Arrive by 8:25 AM) Apple Walker DO Gastroenterology [phone] 08/17/2025 11:00 AM (Arrive by 10:45 AM) Lea Rausch DO Sleep Disorders [phone] Marci Crespo RN [facility] Registered Nurse Navigator Triage documented in this encounter Plan of Treatment Upcoming Encounters Date Type Department Care Team (Late st Contact Info) Description 12/10/2024 10:30 AM EDT Scheduled Telephone [facility] [place], [address] [place] [address] [facility] Nurse [address] [place] [address] 01/05/2025 10:00 AM EDT Home Visit [facility], [facility] [address] [place] [address] Rosalind Smith, RN [address] [place] [address] 01/14/2025 10:00 AM EDT Anticoagulation Pharmacy, [facility] [place] [address] [facility] [facility] [place] [phone] [facility] [address] [place] [address] 01/14/2025 10:10 AM EDT Office Visit Pharmacy, [place] [phone] [facility] [address] [facility] [place] [address] 02/18/2025 12:00 PM EDT Office Visit Family Practice, [facility] [place] [address] [place] [phone] Natalia Heller PA-C [address] [place] [address] 04/20/2025 8:40 AM EDT Office Visit Hepatology, [facility] [address] [place] [phone] Apple Walker, DO [address] [place] [address] 08/17/2025 11:00 AM EST Office Visit Sleep Disorders [facility] [address] [place] [phone] Lea Rausch, [address] [place] [address] Scheduled Procedures Name Priority Associated Diagnoses Date/Ti [...] history exists Postponed from 01/18/2022 (Acute Illness) Lung Cancer Screening 08/29/2025 08/29/2024 , 12/22/2022, 12/09/2021, Additional history exists O2 ASSESSMENT COMPLETED IN PAST YEAR FOR COPD 12/08/2025 12/08/2024 Pneumococcal Vaccine: 50+ Years Completed 01/20/2016, 01/15/2015, 09/18/2006, Additional history exists Colonoscopy Discontinued 09/18/2023, 09/06, 11/16/2020, Additional history exists Colorectal Cancer Screening Discontinued RETIRED - COLONOSCOPY-EVERY 2 YRS AGES 18-100 Discontinued 09/18/2023, 09/18/2023, 11/16/2020, Additional history exists Influenza Vaccine (FLU shot) Completed 04/15/2024, 04/04/2023, 05/08/2022, Additional history exists Alpha-1 Antitrypsin Completed 05/09/2024 VITAMIN D LEVEL ONCE IN A LIFETIME-USE SMARTSET# [id number] Completed 05/09/2024, 06/18/2020, 07/25/2019, Additional history exists [...] this encounter Medical Devices Implanted Type Area Probation And Parole Officer Device Identifier Shelf Expiration Date Model / Serial / Lot Graft Cervical 6x8 [id number] - [id number] Implanted:Qt y: 2 on 08/21/2008 [place] [facility] [place] - Human Spine Cervical [employer] [id number] / / Screw Spine 14mm 50-014 - [id number] Implanted:Qt y: 2 on 08/21/2008 at [place] [facility] [place] N/A: Spine Cervical [employer] DEPUY 50-014 / / Depuy [place] 14 Mm Sd Con Scr Implanted:Qt y: 2 on 08/21/2008 at [place] [facility] [place] N/A: Spine Cervical [employer] 60-014 / / Description:Depuy skyline 14 mm SD con SCR 34 Mm Plate Implanted:Qt y: 1 on 08/21/2008 at [place] [facility] [place] N/A: Spine Cervical / / Description:34 mm Depuy plat e 14 Mm Variable Rescue Implanted:Qt y: 2 on 08/21/2008 at [place] [facility] [place] N/A: Spine Cervical 1868-54-014 / / Description:14 mm variable r escue Screw 3.5x14 Mntr Fa [id number] - [id number] Implanted:Qt y: 10 on 07/13/2010 at [place] [facility] [place]/A: Spine Cervical JNJ : [employer] [id number] / / Devaughn [id number] - [id number] Implanted:Qt y: 1 on 07/13/2010 at [place] [facility] [place]/A: Spine Cervical JNJ : [employer] [id number] / / Screw Inner Mntr [id number] - [id number] Implanted:Qt y: 8 on 07/13/2010 at [place] [facility] [place]/A: Spine Cervical JNJ : [employer] [id number] / / Nut Outer Xcon [id number] - [id number] Implanted:Qt y: 2 on 07/13/2010 at [place] [facility] [place]/A: Spine Cervical JNJ : [employer] [id number] / / Screw Inner Xcon [id number] - [id number] Implanted:Qt y: 2 on 07/13/2010 at [place] [facility] [place]/A: Spine Cervical JNJ : [employer] [id number] / / Plate 35mm Xcon [id number] - [id number] Implanted:Qt y: 1 on 07/13/2010 at [place] [facility] [place]/A: Spine Cervical JNJ : [employer] [id number] / / documented as of this encounter [...] the patient have Health Care Power of Frit Mixer And Burner? No * Full Code Date Activated Date [...] Power of Attor kim? No Care Teams Glove Pairer Relationship Specialty Start Date End Date Natalia Heller PA-C [address] [place] [id number] PCP - General Physician Cephalometric Analyst 08/28/24 documented as of this encounter
--- OUTSIDE RECORDS SUMMARY | 2024-12-10 16:43 | External Medical Summary | Summary of Care ---
Author Name Unknown Organization [facility] Address [address] [address] Phone [phone] Care Team Providers Care Auto Refinisher Name Role Phone Natalia Heller PA-C Primary Care Provider [phone] Reason for Visit * Reason Onset Date Comments Hospital Follow-Up Pt is present it , pt states that she is here for rehab discharge 11/14/24 Hospital Follow-Up 12/08/2024 Encounter Details Date Type Department Care Team (Late st Contact Info) Description 11/19/2024 11:20 AM EDT Office Visit [facility] [address] [place] [phone] Alfa Jaramillo MD [address] [facility] [place], [place] [id number] DM (diabetes mellitus) type II, controlled, with peripheral vascular disorder (HCC)*; Hospital discharge follow-up; COPD, moderate (HCC); Chronic atrial fibrillation (HCC); Coronary artery disease of [place] artery of [place] heart with stable angina pectoris (HCC) Allergies Active Allergy Reactions Criticality Noted [...] 11/02/19 23 Active Accu-Chek Guide Me w/Device KitIndications:Ty pe 2 diabetes mellitus with foot ulcer, with long-term current use of insulin ([facility]),DM (diabetes mellitus) type II, controlled, with peripheral vascular disorder ([facility]) Use as directed. 10/04/19 24 Active Accu-Chek Softclix LancetsIndication s:Type 2 diabetes [...] 4 6:57 AM EDT 10/25/19 24 Active Aspirin 81 MG Oral Tablet Delayed Release Take 1 Tablet by mouth in the morning. 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 90 Tablet 10/10/19 25 Active Potassium Chloride ER 10 MEQ Oral Capsule Extended ReleaseIndication s:Coronary artery disease of [place] artery of [place] heart with stable angina pectoris (HCC) Take 1 Capsule by mouth in the morning. 90 Capsule 5 7:59 AM EDT 10/10/19 25 Active Additional Information Patient taking differently: 20 mEqOral Daily(AM),Every Sunday, Sunday, and Sunday, Reported on 12/08/2024 Anoro Ellipta 62.5-25 MCG/ACT Inhalation Aerosol Powder Breath Activated (umeclidinium-iain anterol)Indicatio ns:COPD, moderate (HCC) Inhale 1 Puff by mouth in the morning. 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 360 mL 1 5 7:02 AM EDT 10/15/19 25 Active Compressor NebulizerIndicati ons:SOB (shortness of breath),COPD, moderate (HCC) Inhale via nebulizer. Use as directed. 1 Each 1 10/15/19 25 Active Nebulizer/Tubing/ Mouthpiece KitIndications:SO B (shortness of breath),COPD, moderate (HCC) Use to nebulize medication 1 Kit 1 10/15/19 25 Active LORazepam 0.5 MG Oral Tablet (Ativan) [...] units in pump. Getting from novonordisk PAP 025 Discontin ued(Refil l) Metoprolol Succinate ER 50 MG Oral Tablet Extended Release 24 Hour (toPROL XL) TAKE ONE TABLET BY MOUTH TWICE A DAY 180 Tablet 3 4 8:51 AM EDT 01/07/20 24 025 Discontin ued(Refil l) Hospital, Clinic, [...] artery disease of n ative artery of [place] heart with stable angina pectoris 12/08/2020 Assessment [...] CARDIOLOGY REFERRAL OP Cervical spinal stenosis 08/21/2008 detention current use [...] First toe of right foot Depression, unspecified 09/25/2024/2 12/2024 Type 2 diabetes [...] No 11/19/2023 Does the household have a [place] [facility] source of income? 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 Not on f ile Not on file Not on file documented as of this encounter Last Filed Vital Signs Vital Sign Reading Time Taken Comments Blood Pressure 113/48 11/19/2024 11:11 AM EDT Pulse 91 11/19/2024 11:11 AM EDT Temperature 36.2 °C (97.1 °F) 11/19/2024 1 1:11 AM EDT Respiratory Rate 16 11/19/2024 11:1 1 AM EDT Oxygen Saturation 96% 11/19/2024 11: 11 AM EDT Inhaled Oxygen Concentration - - Weight 92.4 kg (203 lb 12.8 oz) 025 11:11 AM EDT Height 165.1 cm (5' 5") 11/19/2024 11:1 1 AM EDT Body Mass Index 33.91 11/19/2024 11:11 AM EDT documented in this encounter Functional [...] Progress Notes * Alfa Jaramillo MD - 11/19/2024 12:15 PM EDT Subjective: Graciela Mobley is a 74 year old female here today for Chief Complaint Patient presents with Hospital Follow-Up Pt is present it , pt states that she is here for rehab discharge 11/14/24 Hospital Follow-Up Pt presents for follow up from [facility] where she was admitted 10/21/24 - 10/29/24 with urosepsis and resp failure and then [facility] where she was admitted 10/29/24 - 11/14/24. History of Present Illness The patient, recently discharged from a rehabilitation center, presents with multiple health concerns. The patient's spouse reports that the patient has been experiencing sleep problems, despite the use of lorazepam. The patient also has anxiety which has been exacerbated recently. The patient also has skin sores that have been present for some time but have worsened since the hospital stay. The sores are primarily located on the patient's arm and spontaneously open and bleed. The patient's spouse has been managing these sores with cortisone cream and bandages. The patient has diabetes, which is managed with an insulin pump. The patient's spouse reports that the patient was given insulin injections during the rehabilitation stay but has since returned to using the insulin pump. The patient's spouse is unsure about the need for a scheduled sleep study appoi ntment, as the patient has already had sleep studies done at home. Extensive ROS Constitutional (f/c/wt/vision/hearing): see above hpi Resp (cough/sob/belcher): see above hpi CV (cp/palp/fluttering/diaphoresis/belcher/pnd):see above hpi GI (n/v/d/hrtburn): see above hpi Endo (hair/cold or heat intol/ 3 p's): see above hpi Neuro (shaking/weak/fatigu/parasthesi/): see above hpi Skin (rash/easy bruis/xerosis): see above hpi Psy (si/hi/halluc/): see above hpi (nocturia/hesit/drib/sexual review): see above hpi Lymph (swollen glands/b sx's/: Negative Patient Active Problem List Diagnosis detention current use of anticoagulant therapy Cervical spinal stenosis Dyslipidemia, goal LDL below 100 Senile osteoporosis COPD, moderate (HCC) History [...] II, controlled, with peripheral vascular disorder (HCC) Coronary artery disease of sel[place] artery of [place] heart with stable angina pectoris (HCC) Major depressive disorder, recurrent, unspecified (HCC) Gastro-esophageal reflux disease without esophagitis Hypotension Atrial fibrillation with rapid ventricular response (HCC) Diabetic polyneuropathy associated with type 1 diabetes mellitus (HCC) Chronic diastolic congestive heart failure (HCC) Past Surgical History: Procedure Laterality Date ADJACENT TISSUE TRANS >10SQCM TRUNK Left 04/07/2015 ADJACENT TISSUE TRANSFER TRUNK 10.1 TO 30SQ CM performed by Buffy Castro MD at OR [facility] AMPUTATION OF TOE Right 05/02/2019 AMPUTATION TOE METATARSOPHALANGEAL JOINT performed by Kenny Archibald DPM at OR [facility] ARTHROPLASTY KNEE TOTAL Right 05/2016 Dr Reynoso BX LYMPH NODE DEEP AXIL Left 04/07/2015 BIOPSY LYMPH NODE DEEP AXILLARY OPEN performed by Buffy Castro MD at OR [facility] CARPAL TUNNEL SURGERY 10/15/2009 NEUROPLASTY MEDIAN NERVE AT CARPAL TUNNEL performed by CHELSI DICKERSON [place] [facility] [place]PAL TUNNEL SURGERY 01/07/2010 NEUROPLASTY MEDIAN NERVE AT CARPAL TUNNEL performed by CHELSI DICKERSON [place] [facility] COLONOSCOPY 12/09/2009 adenomatous polyps repeat 6 months [...] performed by Anselmo Sung MD at ENDOSCOPY [facility] COLONOSCOPY, DIAGNOSTIC (RECTUM) 03/21/2018 adenomatous polyp, diverticulosis, repeat 2 yrs/COLONOSCOPY FLEXIBLE PROXIMAL DIAGNOSTIC performed by Anselmo Sung MD at ENDOSCOPY [facility] COLONOSCOPY, DIAGNOSTIC (RECTUM) 01/15/2014 COLONOSCOPY FLEXIBLE PROXIMAL DIAGNOSTIC performed by Anselmo Sung MD at ENDOSCOPY [facility] COLONOSCOPY, DIAGNOSTIC (RECTUM) 11/16/2020 Hemorrhoids, diverticulosis sigmoid colon, multi polyps / biopsy benign adenomatous polyps / 1 yearrecall / COLONOSCOPY FLEXIBLE PROXIMAL DIAGNOSTIC performed by Anselmo Sung MD at ENDOSCOPY [facility] COLONOSCOPY, DIAGNOSTIC (RECTUM) 09/18/2023 multiple small and large mouthed diverticula/biopsies show adenomatous polyps/recall 10 years/COLONOSCOPY FLEXIBLE PROXIMAL DIAGNOSTIC performed by Anselmo Sung MD at ENDOSCOPY [facility] COLONOSCOPY/REMOVE LESION 03/16/2009 repeat 6 months CORONARY ANGIOGRAPHY W/LEFT HEART CATH 11/12/2023 CORONARY ANGIOGRAPHY W/LEFT HEART CATH performed by Huey Barrera MD at [facility] DILATION AND CURETTAGE (D&C) 1996 D&C ENDO DECOMPRESS SPINAL CORD W/LAMINOTOMY, CERVICAL 07/13/2010 LAMINECTOMY DECOMPRESSION SPINAL CORD POSTERIOR CERVICAL performed by CHELSI DICKERSON at [place] [facility] IDENTIFY SENTINEL NODE, RADIOACTIVE TRACER Left 04/07/2015 INJECTION PROCEDURE FOR IDENTIFICATION SENTINEL NODE performed by Buffy Castro MD at OR [facility] KNEE ARTHROSCOPY, DIAGNOSTIC 12/2012 Left [...] performed by Buffy Castro MD at OR [facility] NECK SPINE FUSION (CERV, BELOW C2) 08/21/2008 ARTHRODESIS SPINE ANTERIOR CERVICAL performed by CHELSI DICKERSON at [facility] NECK SPINE FUSION (CERV, BELOW C2) 07/13/2010 ARTHRODESIS SPINE POSTERIOR CERVICAL performed by CHELSI DICKERSON at [place] [facility] RADIATION THERAPY MANAGEMENT Left 07/10/2015 REMOVE NECK SPINE LAMINA, 1-2 SEGS 07/13/2010 LAMINECTOMY POSTERIOR CERVICAL ONE OR TWO VERTEBRAL SEGMENTS performed by CHELSI DICKERSON at [place] [facility] SENTINEL LYMPH NODE BIOPSY PERFORMED Left 04/07/2015 SPINE SEG FIX, POST, 3-6 SEG, INSERT 07/13/2010 POSTERIOR SPINE SEGMENTAL INSTRUMENTATION 3 TO 6 PSF performed by CHELSI DICKERSON [place] [facility] Review of patient's allergies indicates: Allergen Reactions [...] mouth in the morning. 90 Tablet 3 Aspirin 81 MG Oral Tablet Delayed Release Take 1 Tablet by mouth in the morning. Isosorbide Mononitrate ER 60 MG Oral Tablet Extended Release 24 Hour (Imdur) TAKE ONE TABLET BY MOUTH EVERY MORNING 90 Tablet 3 metFORMIN HCl 1000 MG Oral Tablet (Glucophage) TAKE ONE TABLET BY MOUTH TWICE A DAY WITH FOOD 200 Tablet 3 Nitroglycerin 0.3 MG Sublingual Tablet Sublingual (Nitrostat) PLACE 1 TABLET UNDER THE TONGUE EVERY5 MINUTES UP TO 3 DOSES NEEDED FOR CHEST PAIN. IF NO RELIEF CALL 911 OR GO TO ER 25 Tablet 11 Albuterol Sulfate HFA 108 (90 Base) MCG/ACT Inhalation Aerosol Solution Inhale 2 puffs by mouth 4 times daily 20.1 g 2 Famotidine 40 MG Oral Tablet (Pepcid) Take 1 Tablet by mouth in the morning. 30 Tablet 1 Accu-Chek Guide Test In Vitro Strip (Glucose Blood) Use to test bg up to 4 times a day 800 Strip 1 Accu-Chek Adri Plus w/Device Kit Use to check bg 1 Kit 1 Furosemide 20 MG Oral Tablet (Lasix) Take 1 Tablet by mouth in the morning. 90 Tablet 0 Potassium Chloride ER 10 MEQ Oral Capsule Extended Release Take 1 Capsule by mouth in the morning. (Patient taking differently: Take 2 Capsules by mouth in the morning. Every Sunday, Sunday, and Sunday.) 90 Capsule 0 Anoro Ellipta 62.5-25 MCG/ACT Inhalation Aerosol Powder Breath Activated (umeclidinium-vilanterol) Inhale 1 Puff by mouth in the morning. 90 Each 1 Warfarin Sodium 5 MG Oral Tablet (Coumadin) TAKE ONE TO ONE AND ONE-HALF TABLETS BY MOUTH EVERY DAYAS DIRECTED BY COUMADIN CLINIC 135 Tablet 3 Ipratropium-Albuterol 0.5-2.5 (3) MG/3ML Inhalation Solution (Duoneb) Inhale 1 vial via nebulizer in the morning and 1 vial at noon and 1 vial in the evening and 1 vial before bedtime. 360 mL 1 Compressor Nebulizer Inhale via nebulizer. Use as directed. 1 Each 1 Nebulizer/Tubing/Mouthpiece Kit Use to nebulize medication 1 Kit 1 LORazepam 0.5 MG Oral Tablet (Ativan) Take 1 Tablet by mouth every 6 hours as needed. Vitamin B-12 1000 MCG Sublingual Tablet Sublingual Place 1 Tablet under the tongue in the morning. Vitamin D-3 25 MCG (1000 UT) Oral Capsule Take 1 Capsule by mouth in the morning. Insulin Aspart 100 UNIT/ML Injection Solution (NovoLOG) 270 units daily in pump 80 mL 4 Metoprolol Succinate ER 25 MG Oral Tablet Extended Release 24 Hour (toPROL XL) Take 12.5 mg by mouth once daily 45 Tablet 3 Current Facility-Administered Medications Medication Dose Route Frequency Provider Last Rate Last Admin Albuterol Sulfate (Proventil) (2.5 MG/3ML) 0.083% inhalation solution 2.5 mg 2.5 mg Nebulizer PRN 2.5 mg at 09/15/24 0823 Objective: BP 113/48 | Pulse 91 | Temp 97.1 °F (36.2 °C) (Tympanic) | Resp 16 | Ht 5' 5" (1.651 m) | Wt 203 lb 12.8 oz (92.4 kg) | LMP 06/06/2001 | SpO2 96% | BMI 33.91 kg/m² | BSA 2.06 m² GEN: NAD HEENT: Benign CHEST: CTA B CV: RRR ABD: Soft, NT/ND, No HSM, NABS EXT: No c,c,e Assessment & Plan Insomnia Persistent insomnia continues despite lorazepam use. Discussed the risk of dependency and side effects associated with lorazepam. Emphasized the importance of non-pharmacological sleep hygiene. Rozerem may be considered if it proves effective during hospitalization. Review hospital records for Rozerem efficacy and encourage adherence to sleep hygiene practices. Anxiety She experiences episodes of anxiety and panic attacks. Non-pharmacological management techniques are emphasized. Use lorazepam only for severe anxiety or panic attacks and encourage non-pharmacological strategies. COPD with Asthma Her condition is managed with a nebulizer and Duoneb for lung-related exacerbations. The nebulizer is ineffective for anxiety-induced dyspnea due to albuterol's side effects. Use the nebulizer with Duoneb for lung-related symptoms and avoid it for anxiety-induced symptoms unless lung issues are susp ected. Skin Lesions Recurrent skin lesions on her arm bleed but show no signs of infection or pressure sores. Discussedthe possibility of a dermatology referral and biopsy. Emphasized monitoring and preventing infection. Apply antibiotic ointment to prevent infection and consider a dermatology referral for evaluationand possible biopsy if lesions persist or worsen. Follow-up She needs to reschedule missed appointments and confirm the necessity of a sleep medicine appointment to avoid unnecessary visits. Reschedule missed appointments at the front desk person, confirm the necessity of the sleep medicine appointment with the provider, and follow up with Natalia in February. Continue coordination with home health services. Text in this note was generated using an [employer] documentation service. I discussed the use of a device to record and summarize our discussion today. All persons present during the encounter consented to its use. I spent a total of 40-54 minutes (exact time 45 mins) on the date of service in preparation, delivery, and documentation of the care provided to Graciela Mobley excluding any time spent in the performance of separately billed services or time spent by another provider/QHP. Alfa Jaramillo MD documented in this encounter Nursing Notes * Sofie Blanchard LPN - 11/19/2024 11:10 AM EDT Graciela Mobley is a 74 year old female who presents today for Chief Complaint Patient presents with Hospital Follow-Up Pt is present it , pt states that she is here for rehab discharge 11/14/24 documented in this encounter Plan of Treatment Upcoming Encounters Date Type Department Care Team (Late st Contact Info) Description 12/09/2024 1:15 PM EDT Scheduled Telephone [facility], [facility] [address] [place] [address] [facility], Nurse [place] [address] [address] [place] [address] 12/10/2024 10:30 AM EDT Scheduled Telephone [facility], [facility] [address] [place] [address] [facility], Nurse [place] [address] [address] [place] [address] 01/05/2025 10:00 AM EDT Home Visit [facility], [facility] [address] [place] [address] Rosalind Smith RN [address] [place] [address] 01/14/2025 10:00 AM EDT Anticoagulation Pharmacy, Corky Astorga [address] [place] [phone] [facility] [address] [facility] [place] [address] 01/14/2025 10:10 AM EDT Office Visit Pharmacy, Corky Herbert Gauri [address] [place] [phone] [place] [address] [address] [facility] [place] [address] 02/18/2025 12:00 PM EDT Office Visit Family Practice, Corky Martinez [address] [place] [phone] Natalia Heller PA-C [address] [place] [address] 04/20/2025 8:40 AM EDT Office Visit Hepatology, [facility] [address] [place] [phone] Apple Walker, DO [address] [place] [id number] 08/17/2025 11:00 AM EST Office Visit [facility] Disorders Ctr [facility] [address] [place] [phone] Lea Rausch, DO [address] [place] [id number] Scheduled Procedures Name Priority Associated Diagnoses Date/Ti [...] D LEVEL ONCE IN A LIFETIME-USE SMARTSET# [id number] Completed 05/09/2024, 06/18/2020, 07/25/2019, Additional history exists [...] this encounter Medical Devices Implanted Type Area Mimeographer Device Identifier Shelf Expiration Date Model / Serial / Lot Graft Cervical 6x8 [id number] - [id number] Implanted:Qt y: 2 on 08/21/2008 at [place] [facility] Tissue - Human Spine Cervical [employer] [id number] / / Screw Spine 14mm - [id number] Implanted:Qt y: 2 on 08/21/2008 [place] [facility] N/A: Spine Cervical [employer]Y [id number] / / Depuy [place] I [address] Con Scr Implanted:Qt y: 2 on 08/21/2008 at [place] [facility] N/A: Spine Cervical [employer] 60 / / Description:Depuy skyline 14 mm SD con SCR 34 Mm Plate Implanted:Qt y: 1 on 08/21/2008 [place] [facility] N/A: Spine Cervical / / Description:34 mm Depuy plat e 14 Mm Variable Rescue Implanted:Qt y: 2 on 08/21/2008 at [place] [facility] N/A: Spine Cervical / / Description:14 mm variable r escue Screw 3.5x14 Mntr Fa [id number] - [id number] Implanted:Qt y: 10 on 07/13/2010 at [place] [facility] N/A: Spine Cervical JN[place] : [employer] [id number] / / Devaughn 3.2f470eu [id number] - [id number] Implanted:Qt y: 1 on 07/13/2010 at [place] [facility] N/A: Spine Cervical JN[place] : [employer] [id number] / / Screw Inner Mntr [id number] - [id number] Implanted:Qt y: 8 on 07/13/2010 at [place] [facility] N/A: Spine Cervical JNJ : [employer] [id number] / / Nut Outer Xcon [id number] - [id number] Implanted:Qt y: 2 on 07/13/2010 at [place] [facility] N/A: Spine Cervical JN[place] : [employer] [id number] / / Screw Inner Xcon [id number] - [id number] Implanted:Qt y: 2 on 07/13/2010 [place] [facility] N/A: Spine Cervical JN[place] : [employer] [id number] / / Plate 35mm Xcon [id number] - [id number] Implanted:Qt y: 1 on 07/13/2010 [place] [facility] N/A: Spine Cervical JN[place] : [employer] [id number] / / documented as of this encounter Visit Diagnoses Diagnosis COPD, moderate (HCC)- Primary Chronic airway obstruction, not elsewhere classified Chronic atrial fibrillation (HCC) Atrial fibrillation Coronary artery disease of [place] artery of [place] heart with stable angina pectoris (HCC) DM (diabetes mellitus) type II, controlled, with peripheral vascular disorder ([facility]) Advanced care planning/counseling discussion Other specified counseling COPD, moderate (HCC)- Primary Chronic airway obstruction, not elsewhere classified Chronic diastolic congestive heart failure (HCC) Chronic diastolic heart failure Senile osteoporosis Acquired absence of other toe(s), unspecified side (HCC) Hospital discharge follow-up- Primary Other follow-up examination Acute on chronic diastolic congestive heart failure (HCC) Acute on chronic diastolic heart failure Coronary artery disease of [place] artery of [place] heart with stable angina pectoris (HCC) Chronic atrial fibrillation (HCC) Atrial fibrillation Dyslipidemia, goal LDL below 100 Other and unspecified hyperlipidemia detention current use of anticoagulant therapy SOB (shortness [...] with medical treatment, presenting hazards to health DM (diabetes mellitus) type II, controlled, with peripheral vascular disorder (HCC)- Primary Hospital discharge follow-up Other follow-up examination COPD, moderate (HCC) Chronic airway obstruction, not elsewhere classified Chronic atrial fibrillation (HCC) Atrial fibrillation Coronary artery disease of [place] artery of [place] heart with stable angina pectoris (HCC) documented in this encounter Advance Directives [...] the patient have Health Care Power of Fire Alarm Dispatcher? No * Full Code Date Activated [...] Power of Attor kim? No Care Teams Auto Refinisher Relationship Specialty Start Date End Date Natalia Heller PA-C [address] [id number] PCP - General Physician Service Cashier 08/28/24 documented as of this encounter
--- OUTSIDE RECORDS SUMMARY | 2024-12-10 16:43 | External Medical Summary | Summary of Care ---
Author Name Unknown Organization [facility] Address [address] [facility] [place] [address] Phone [phone] Care Team Providers Care Assistant Professor Of German Name Role Phone Natalia Heller PA-C Primary Care Provider [phone] Reason for Visit * Reason Onset Date Comments Patient Assistance Program 12/03/2024 Novol og Vials Encounter Details Date Type Department Care Team (Late st Contact Info) Description 12/03/2024 Telephone Pharmacy, [place] [facility] [address] [place] [address] Shanthi Franks, [facility] [address] [place], [place] [id number] Patient Assistance Program (Novolog Vials) Allergies Active Allergy Reactions Criticality Noted Date Comments Alendronate Sodium 06/24/2012 Burning sensation and difficulty breathing Proton Pump Inhibitors Hives 02/20/2002 nexium documented as of this encounter (statuses as of 12/03/2024) Medications Multiple Vitamin (DAILY VALUE MULTIVITAMIN) Tablet Take 1 Tablet by mouth in the morning. Active Fluticasone Propionate 50 MCG/ACT Nasal Suspension (Flonase)Indicati ons:Chronic rhinitis Administer 2 Sprays into each nostril in the morning. 16 g 1 3 Active Accu-Chek Guide Me w/Device KitIndications:Ty pe 2 diabetes mellitus with foot ulcer, with long-term current use of insulin ([facility]),DM (diabetes mellitus) type II, controlled, with peripheral vascular disorder ([facility]) Use as directed. 4 Active Accu-Chek Softclix LancetsIndication s:Type 2 diabetes mellitus with foot ulcer, with long-term current use of insulin ([facility]),DM (diabetes mellitus) type II, controlled, with peripheral vascular disorder ([facility]) Use to test blood glucose 4 times [...] 12.5 mg once daily, dose decreased [facility] admit 09/26/24, Reported on 11/26/2024 Isosorbide Mononitrate ER 60 MG Oral Tablet Extended Release 24 Hour (Imdur)Indication s:HTN, goal below 130/80,Coronary artery disease involving [place] ira coronary artery of 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 90 Tablet 5 Active Potassium Chloride ER 10 MEQ Oral Capsule Extended ReleaseIndication s: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 (HCC) Take 1 Capsule by mouth in the morning. 90 Capsule 10/13/2024 7:59 AM EDT 5 Active Additional Information Patient taking differently: 20 mEqOral Daily(AM),Every Sunday, Sunday, and Sunday, Reported on 11/26/2024 Anoro Ellipta 62.5-25 MCG/ACT Inhalation Aerosol Powder Breath Activated (umeclidinium-iain anterol)Indicatio ns:COPD, moderate (HCC) Inhale 1 Puff by mouth in the morning. 90 Each 1 10/17/2024 7:02 AM EDT 5 Active Warfarin Sodium 5 MG Oral Tablet (Coumadin)Indicat ions:penitentiary current use of anticoagulant therapy,Deep vein thrombosis [...] to nebulize medication 1 Kit 1 Active LORazepam 0.5 MG Oral Tablet (Ativan) [...] units daily in pump 80 mL 4 12/01/2024 2:20 PM EDT Active Hospital, Clinic, or Other Facility Administered Medication Ordered Dose Route Frequency Start Date End Date Status Albuterol Sulfate (Proventil) (2.5 MG/3ML) 0.083% inhalation solution 2.5 mgIndications:COPD with exacerbation (HCC),SOB (shortness of breath),Asthma with COPD (chronic obstructive pulmonary disease) (HCC) 2.5 mg NEBULIZER PRN 08/21/2024 08/21/2025 Active documented as of this encounter (statuses as of 12/03/2024) Active Problems Problem Noted Date Diagnosed Date [...] ira heart with stable angina pectoris 12/08/2020 Assessment [...] CARDIOLOGY REFERRAL OP Cervical spinal stenosis 08/21/2008 emt intermediate current use of anticoagulant therapy 0 05/03/2005 Assessment & Plan (10/14/2024 1:10 PM EDT): Orders: CARDIOLOGY REFERRAL OP Warfarin Sodium 5 MG Oral Tablet (Coumadin); TAKE ONE TABLET TO ONE AND ONE-HALF TABLET BY MOUTH EVERY DAY DIRECTED BY COUMADIN CLINIC documented as of this encounter (statuses as of 12/03/2024) Resolved Problems Problem Noted Date Diagnosed Date [...] as of this encounter (statuses as of 12/03/2024) Immunizations Name Administration Dates Next Due COVID-19 [...] No 11/19/2023 Does the household have a [facility] source of income? 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 Received successful confirmation of fax. Forms scanned into chart. Shanthi Franks, RajeshD Clinical Pharmacist Medication Therapy Disease Management 12/03/2024, 3:22 PM documented in this encounter Plan of Treatment Upcoming Encounters Date Type Department Care Team (Late st Contact Info) Description 12/08/2024 10:00 AM EDT Home Visit [facility] [address] [place] [address] Rosalind Smith RN [address] [place] [address] 01/14/2025 10:00 AM EDT Anticoagulation Pharmacy, [place] [phone] [facility] [address] [address] 01/14/2025 10:10 AM EDT Office Visit Pharmacy, [place] [address] [place] [phone] [facility] [address] [address] 02/18/2025 12:00 PM EDT Office Visit Family Practice, [place] [address] [facility] [phone] Natalia Heller PA-C [address] [place] [address] 04/20/2025 8:40 AM EDT Office Visit Hepatology, [facility] [address] [place] [phone] Apple Walker DO [address] [place] [id number] 08/17/2025 11:00 AM EST Office Visit [facility] Disorders [facility]tr [facility] [address] [place] [phone] Lea Rausch, [address] [place] [id number] Scheduled Procedures Name Priority Associated Diagnoses Date/Ti me COLONOSCOPY FLEXIBLE PROXIMA L DIAGNOSTIC Recall Screening for colon cancer Health Maintenance Due Date Last Done Comments *BISPHONATE OR OTHER ACCEPTABLE MEDICATION NEEDED FOR OSTEOPOROSIS (REFER TO SMARTSET #1149) 08/07/2014 Adult Wellness Visit 03/27/2023 03/27/2022, 01/19/20 [...] ASSESSMENT COMPLETED IN PAST YEAR FOR COPD 11/26/2025 11/26/2024 Pneumococcal Vaccine: 50+ Years Completed 01/20/2016, 01/15/2015, 09/18/2006, Additional history exists Colonoscopy Discontinued 09/18/2023, 09/06, 11/16/2020, Additional history exists Colorectal Cancer Screening Discontinued RETIRED - COLONOSCOPY-EVERY 2 YRS AGES 18-100 Discontinued 09/18/2023, 09/18/2023, 11/16/2020, Additional history exists Influenza Vaccine (FLU shot) Completed 04/15/2024, 04/04/2023, 05/08/2022, Additional history exists Alpha-1 Antitrypsin Completed 05/09/2024 VITAMIN D LEVEL ONCE IN A LIFETIME-USE SMARTSET# 09827 Completed 05/09/2024, 06/18/2020, 07/25/2019, Additional history exists [...] this encounter Medical Devices Implanted Type Area Spinning Lathe Operator Automatic Device Identifier Shelf Expiration Date Model / Serial / Lot Graft Cervical 6x8 [id number] - [id number] [place]planted:Qt y: 2 on [place] [facility] [place] - Human Spine Cervical Lif[employer] Co [id number] / / Screw Spine 14mm 50-014 - [id number] Implanted:Qt y: 2 on 08/21/2008 [place] [facility] [place]: Spine Cervical CARSON [employer] CARSON DEPUY 8-50-014 / / Depuy [place] 14 Mm Sd Con Scr Implanted:Qt y: [place] Spine Cervical 54-014 / / Description:14 mm variable r escue Screw 3.5x14 Mntr Fa [id number] - [id number] Implanted:Qt y: 10 on 07/13/2010 [place] [facility]: Spine Cervical JNJ : ETHICON [employer]IOVATIONS [id number] / / Devaughn 3.8i464mn [id number] - [id number] Implanted:Qt y: 1 on 07/13/2010 [place] [facility] [place]: Spine Cervical JNJ : ETHICON CARDIOVATIONS [id number] / / Screw Inner Mntr [id number] - [id number] Implanted:Qt y: 8 on 07/13/2010 [place] [facility] [place]: Spine Cervical JNJ : ETHICON CARDIOVATIONS [id number] / / Nut Outer Xcon [id number] - [id number] Implanted:Qt y: 2 on 07/13/2010 [place] [facility] [place]: Spine Cervical JNJ : ETH[employer]ON CARDIOVATIONS [id number] / / Screw Inner Xcon [id number] - [id number] Implanted:Qt y: 2 on 07/13/2010 [place] [facility] [place] [place]: Spine Cervical JNJ : ETHICON CARDIOVATIONS [id number] / / Plate 35mm Xcon [id number] - [id number] Implanted:Qt y: 1 on 07/13/2010 [place] [facility] [place] [place]: Spine Cervical JNJ : ETHICON CARDIOVATIONS [id number] / / documented as of this encounter Visit Diagnoses Diagnosis COPD, moderate (HCC)- Primary Chronic airway obstruction, not elsewhere classified Chronic atrial fibrillation (HCC) Atrial fibrillation 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 (HCC) DM (diabetes mellitus) type II, controlled, with peripheral vascular disorder (HCC) Advanced care planning/counseling discussion Other specified counseling COPD, moderate (HCC)- Primary Chronic airway obstruction, not elsewhere classified Chronic diastolic congestive heart failure (HCC) Chronic diastolic heart failure Senile osteoporosis Acquired absence of other toe(s), unspecified side ([facility]) Hospital discharge follow-up- Primary Other follow-up examination Acute on chronic diastolic congestive heart failure (HCC) Acute on chronic diastolic heart failure 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 (HCC) Chronic atrial fibrillation (HCC) Atrial fibrillation Dyslipidemia, goal LDL below 100 Other and unspecified hyperlipidemia emt intermediate current use of anticoagulant therapy SOB (shortness [...] patient have Health Care Power of Radio Repairer? No * Full Code Date Activated Date [...] Power of Attor kim? No Care Teams Assistant Professor Of German Relationship Specialty Start Date End Date Natalia Heller PA-C [facility] [place] [phone] PCP - General Physician Muffle Worker 08/28/24 documented as of this encounter
--- OUTSIDE RECORDS SUMMARY | 2024-12-10 16:43 | External Medical Summary | Summary of Care ---
Author Name Unknown Organization [facility] Address [address] [facility] [place] [address] Phone [phone] Care Team Providers Care Seed Production Field Supervisor Name Role Phone Natalia Heller PA-C Primary Care Provider [phone] Reason for Visit * Reason Onset Date Comments Medication Refill 12/08/2024 Encounter Details Date Type Department Care Team (Late st Contact Info) Description 12/08/2024 Refill [facility], [facility] [address] [place] [address] Rosalind Smith, RN [address] [place] [address] Allergies Active Allergy Reactions Criticality Noted Date Comments Alendronate Sodium 06/24/2012 Burning sensation and difficulty breathing Proton Pump Inhibitors Hives 02/20/2002 nexium documented as of this encounter (statuses as of 12/08/2024) Medications Multiple Vitamin (DAILY VALUE MULTIVITAMIN) Tablet [...] vascular disorder ([facility]) Use as directed. 10/04/19 24 [...] Warfarin Sodium 5 MG Oral Tablet (Coumadin)Indicat ions:jail current use of anticoagulant therapy,Deep vein thrombosis [...] units daily in pump 80 mL 4 5 10:15 AM EDT 12/02/19 25 Active Metoprolol Succinate ER 25 MG Oral Tablet Extended Release 24 Hour (toPROL XL) Take 12.5 mg by mouth once daily 45 Tablet 3 12/09/19 25 Active Metoprolol Succinate ER 50 MG Oral [...] as of this encounter (statuses as of 12/08/2024) Active Problems Problem Noted Date Diagnosed Date [...] CARDIOLOGY REFERRAL OP Cervical spinal stenosis 08/21/2008 jail current use of anticoagulant therapy 0 05/03/2005 Assessment & Plan (10/14/2024 1:10 PM EDT): Orders: CARDIOLOGY REFERRAL OP Warfarin Sodium 5 MG Oral Tablet (Coumadin); TAKE ONE TABLET TO ONE AND ONE-HALF TABLET BY MOUTH EVERY DAY DIRECTED BY COUMADIN CLINIC documented as of this encounter (statuses as of 12/08/2024) Resolved Problems Problem Noted Date Diagnosed Date [...] as of this encounter (statuses as of 12/08/2024) Immunizations Name Administration Dates Next Due COVID-19 [...] Not on file 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 Pharmacy is [facility] order. Thank you! documented in this encounter Plan of Treatment Upcoming Encounters Date Type Department Care Team (Late st Contact Info) Description 12/09/2024 1:15 PM EDT Scheduled Telephone [facility], [address] [place] [address] [facility], Nurse [address] [place] [address] 12/10/2024 10:30 AM EDT Scheduled Telephone [facility], [facility] [address] [place] [address] [facility], Nurse [facility] [address] [place] [address] 01/05/2025 10:00 AM EDT Home Visit [facility], [facility] [address] [place] [address] Rosalind Smith RN [address] [place] [address] 01/14/2025 10:00 AM EDT Anticoagulation Pharmacy, [place] [address] [place] [phone] [place] [address] [place] [address] 01/14/2025 10:10 AM EDT Office Visit Pharmacy, [place] [phone] [place] [address] [place] [address] 02/18/2025 12:00 PM EDT Office Visit Family Practice, [place] [address] [address] [place] [phone] Natalia Heller PALoiC [address] [place] [address] 04/20/2025 8:40 AM EDT Office Visit Hepatology, [facility] [address] [place] [phone] Apple Walker DO [address] [place] [address] 08/17/2025 11:00 AM EST Office Visit Sleep Disorders Ctr [facility] [address] [place] [phone] Lea Rausch, [address] [place] [address] Scheduled Procedures Name Priority Associated Diagnoses Date/Ti [...] D LEVEL ONCE IN A LIFETIME-USE SMARTSET# 26846 Completed 05/09/2024, 06/18/2020, 07/25/2019, Additional history exists [...] this encounter Medical Devices Implanted Type Area Corporate Accounting Manager Device Identifier Shelf Expiration Date Model / Serial / Lot Graft Cervical 6x8 [id number] - [id number] Implanted:Qt y: 2 on 08/21/2008 at [place] [facility] [place] Tissue - Human Spine Cervical Lifenet Co [id number] / / Screw Spine 14mm [id number] - [id number] Implanted:Qt y: 2 on 08/21/2008 at [place] [facility] [place] N/A: Spine Cervical CARSON [employer] CARSON DEPUY - / / Depuy [place] 14 Mm Sd Con Scr Implanted:Qt y: 2 on 08/21/2008 at [place] [facility] [place]/A: Spine Cervical CARSON [employer] CARSON DEPUY / / Description:Depuy [place] 14 mm SD con SCR 34 Mm Plate Implanted:Qt y: 1 on 08/21/2008 at [place] [facility] [place]/A: Spine Cervical / / Description:34 mm Depuy plat e 14 Mm Variable Rescue Implanted:Qt y: 2 on 08/21/2008 at [place] [facility] [place]/A: Spine Cervical / / Description:14 mm variable r escue Screw 3.5x14 Mntr Fa [id number] - [id number] Implanted:Qt y: 10 on 07/13/2010 at [place] [facility] [place]/A: Spine Cervical JNJ : ETHICON CARDIOVATIONS [id number] / / Devaughn [id number] - [id number] Implanted:Qt y: 1 on 07/13/2010 at [place] [facility] [place]/A: Spine Cervical JNJ : ETHICON CARDIOVATIONS [id number] / / Screw Inner Mntr [id number] - [id number] Implanted:Qt y: 8 on 07/13/2010 at [place] [facility] [place]/A: Spine Cervical JNJ : ETHICON CARDIOVATIONS [id number] / / Nut Outer Xcon [id number] - [id number] Implanted:Qt y: 2 on 07/13/2010 [place] [facility] [place]/A: Spine Cervical JNJ : ETHICON CARDIOVATIONS [id number] / / Screw Inner Xcon [id number] - [id number] Implanted:Qt y: 2 on 07/13/2010 [place] [facility] [place]/A: Spine Cervical JNJ : ETHICON CARDIOVATIONS [id number] / / Plate 35mm Xcon [id number] - [id number] Implanted:Qt y: 1 on 07/13/2010 [place] [facility] [place]/A: Spine Cervical JNJ : ETHICON CARDIOVATIONS [id number] / / documented as of this encounter [...] the patient have Health Care Power of Drafter Engineering? No * Full Code Date Activated Date [...] Power of Attor kim? No Care Teams Seed Production Field Supervisor Relationship Specialty Start Date End Date Natalia Heller PA-C [facility] [place] [phone] PCP - General Physician Chemotherapist 08/28/24 documented as of this encounter
--- OUTSIDE RECORDS SUMMARY | 2024-12-10 16:43 | External Medical Summary ---
Author Name Unknown Address Unknown Organization : Laboratory Report Ordering Provider Test Date Status LETICIA HOOD 12/03/2024 14:32:13 Final Therapeutic ranges for non-o perative patients:
Prophylaxsis/treatment of DVT: (Range:2.0-3.0)
Treatment of pulmonary embolism:(Range:2.0-3.0)
Prevention of systemic embolism from:
-tissue heart valves
-acute myocardial infarction
-valvular heart disease
-atrial fibrillation
(Range: 2.0-3.0)
Mechanical prosthetic valves: (Range: 2.5-3.5) Observation Date Value Abnormality Reference (Units ) Status INR in Capillary blood by Coagulation assay 12/03/2024 14:32:13 1.9 (INR) Final Performing Location
--- OUTSIDE RECORDS SUMMARY | 2024-12-10 16:43 | External Medical Summary | Summary of Care ---
Author Name Unknown Organization [facility] Address [address] [facility] [address] Phone [phone] Care Team Providers Care Legal Archivist Name Role Phone Natalia Heller PA-C Primary Care Provider [phone] [phone] Reason for Visit * Reason Comments Dosage Adjustment In Person (Anticoag Cl inic) Diabetes Follow-Up Insulin Pump Encounter Details Date Type Department Care Team (Late st Contact Info) Description 12/03/2024 2:20 PM EDT Office Visit Pharmacy, [facility] [address] [place] [address] [place], [facility] [address] [place] [address] Type 2 diabetes mellitus with foot ulcer, with long-term current use of insulin ([facility])*; DM (diabetes mellitus) type II, controlled, with peripheral vascular disorder ([facility]) Allergies Active Allergy Reactions Criticality Noted Date [...] ([facility]) Use as directed. 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) Take [...] Warfarin Sodium 5 MG Oral Tablet (Coumadin)Indicat ions:[facility] current use of anticoagulant therapy,Deep vein thrombosis (DVT) of left lower extremity, unspecified chronicity, unspecified vein (HCC) TAKE ONE TO ONE AND ONE-HALF TABLETS BY MOUTH EVERY DAY DIRECTED BY COUMADIN CLINIC 135 Tablet 3 10/17/2024 7:02 AM EDT Active Ipratropium-Albut silverio 0.5-2.5 (3) MG/3ML Inhalation [...] artery disease of n ative artery of unga heart with stable angina pectoris 12/08/2020 Assessment [...] CARDIOLOGY REFERRAL OP Cervical spinal stenosis 08/21/2008 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 Not on f ile Not on [...] Progress Notes * Shanthi Franks, [facility] - 12/03/2024 2:25 PM EDT Images from the original note were not included. Medication Therapy Disease Management Clinic - Diabetes Management Progress Note Graciela Mobley, identified by name and date of , is a 74 year old female being seen for diabetes management/education. Patient presents for return diabetic visit. DIABETES: Current diabetic medications: Metformin 1000mg twice daily GFR 75 as of 05/09/24 Medtronic 780G Insulin Pump (Serial Number: [id number]) Infusion Set: Quick set Insulin: Novolog Basal [...] Glucose Review/SMBG: Readings obtained from patient device Did not bring dexcom reader Appears adherent to bolusing. Hypoglycemia: Does your blood sugar go below 70 mg/dL? None reported Hyperglycemia symptoms present: none Recent Labs Units 05/09/24 0911 05/09/24 0823 11/16/23 0000 HEMOGLOBIN A1C - [facility] % 11.1* -- -- HEMOGLOBIN, [id number] -- -- 10.4* HEMOGLOBIN A1C POCT - [facility] % -- 11.2* -- Recent Labs Units 05/09/24 0911 12/12/23 1523 11/23/23 1023 ESTIMATED GLOMERULAR FILTRATION RATE - [facility] mL/min 75 64 70 CREATININE - [facility] mg/dL 0.8 0.9 0.9 HYPERTENSION: Patient on ACEi/ARB: no, indicated per UACR-- will need to discuss in future BP Readings from Last 3 Encounters: 11/26/24 120/60 11/19/24 113/48 11/17/24 118/62 Blood pressure at goal: yes HYPERLIPIDEMIA: [...] current use of insulin ([facility]) E11.621 L97.509 Z79.4 2. DM (diabetes mellitus) type II, controlled, with peripheral vascular disorder (HCC) E11.51 Considerations: - over [employer] income as of 2021 - patient approved for NovoNordisk PAP 2023 - omnipod not an option due to cost (on GHP Gold, would push to jorgito gomez immediately) + pt's current insulin requirement. Glycemic control is unavailable to assess. She is not putting in her BG levels into pump before each meal (too complicated) and she did not bring the dexcom reader. They do have issues keeping dexcomsensor on her-- advised alternative sites to see if that improves the adherence to her skin. Recommending no changes right now, as very minimal BG data to go off of. Encouraged patient and to continue to remember routine bolus doses. Patient to SMBG at least 4 times daily, before each meal and at bedtime. Patient aware to contact clinic if any hypoglycemia before next visit. Reviewed rule of 15s. Reviewed appropriate management of hyperglycemia as noted in pump start documentation. MEDICATION CHANGES: Diabetic Medications: Metformin 1000mg twice daily GFR 75 as of 05/09/24 Medtronic 780G Insulin Pump (Serial Number: [id number]) Infusion Set: Quick set Insulin: Novolog Basal Rate: midnight to 6am: 7.2 units/hour 6am to noon: 8.0 units/hour noon [...] due FOLLOW UP: Return to clinic in 6 weeks 01/14/2025 I spent a total of 30-39 minutes (exact time 30 mins) on the date of service in preparation, delivery, and documentation of the care provided to Graciela Mobley excluding any time spent in the performance of separately billed services. Shanthi Franks, PharmD, BCACP Clinical Pharmacist Medication Therapy Disease Management 12/03/2024, 2:29 PM documented in this encounter Plan of Treatment Upcoming Encounters Date Type Department Care Team (Late st Contact Info) Description 12/08/2024 10:00 AM EDT Home Visit jay[place] at [place], [facility] [address] [place] [address] Rosalind Smith, RN [address] [place] [address] 01/14/2025 10:00 AM EDT Anticoagulation Pharmacy, [facility] [address] [place] [phone] [place] [address] [place] [address] 01/14/2025 10:10 AM EDT Office Visit Pharmacy, [facility] [address] [place] [phone] [facility] [address] [facility] [place] [address] 02/18/2025 12:00 PM EDT Office Visit Family Practice, [facility] [address] [place] [phone] Natalia Heller PA-C [address] [place] [address] 04/20/2025 8:40 AM EDT Office Visit Hepatology, [facility] [address] [phone] Apple Walker DO [address] [place] [address] 08/17/2025 11:00 AM EST Office Visit [facility] Disorders Ctr [facility] [address] [place] [phone] [place] Lea V[facility]quez, [address] [place] [phone] Scheduled Procedures Name Priority Associated Diagnoses Date/Ti [...] D LEVEL ONCE IN A LIFETIME-USE SMARTSET# [id number] Completed 05/09/2024, 06/18/2020, 07/25/2019, Additional history exists [...] this encounter Medical Devices Implanted Type Area Windlasser Device Identifier Shelf Expiration Date Model / Serial / Lot Graft Cervical 6x8 [id number] - [id number] Implanted:Qt y: 2 on 08/21/2008 at [place] [facility] [place] Tissue - Human Spine Cervical Lifenet Co [id number] / / Screw Spine 14mm 1867-50- - [id number] Implanted:Qt y: 2 on 08/21/2008 at [place] [facility] [place] N/A: Spine Cervical CARSON [employer] CARSON DEPUY 50 / / Depuy [place] 14 Mm Sd Con Scr Implanted:Qt y: 2 on 08/21/2008 at [place] [facility] [place] N/A: Spine Cervical [employer] CARSON DEPUY / / Description:Depuy skyline 14 mm SD con SCR 34 Mm Plate Implanted:Qt y: 1 on 08/21/2008 at [place] [facility] [place] N/A: Spine Cervical / / Description:34 mm Depuy plat e 14 Mm Variable Rescue Implanted:Qt y: 2 on 08/21/2008 at [place] [facility] [place] N/A: Spine Cervical / / Description:14 mm variable r escue Screw 3.5x14 Mntr Fa [id number] - [id number] Implanted:Qt y: 10 on 07/13/2010 at [place] [facility] [place] N/A: Spine Cervical JNJ : ETHICON [employer]ATIONS [id number] / / Devaughn [id number] - [id number] Implanted:Qt y: 1 on 07/13/2010 at [place] [facility] [place] N/A: Spine Cervical JNJ : ETHICON CARDIOVATIONS [id number] / / Screw Inner Mntr [id number] - [id number] Implanted:Qt y: 8 on 07/13/2010 at [place] [facility] [place] N/A: Spine Cervical JNJ : ETHICON CARDIOVATIONS [id number] / / Nut Outer Xcon [id number] - [id number] Implanted:Qt y: 2 on 07/13/2010 at [place] [facility] [place] N/A: Spine Cervical JNJ : ETH[employer]ON [employer]ATIONS [id number] / / Screw Inner Xcon [id number] - [id number] Implanted:Qt y: 2 on 07/13/2010 at [place] [facility] [place] N/A: Spine Cervical JNJ : ETHICON C[employer]ATIONS [id number] / / Plate 35mm Xcon [id number] - [id number] Implanted:Qt y: 1 on 07/13/2010 at [place] [facility] [place] N/A: Spine Cervical JNJ : ETHICON C[employer]ATIONS [id number] / / documented as of this encounter Visit Diagnoses Diagnosis COPD, moderate (HCC)- Primary Chronic airway obstruction, not elsewhere classified Chronic atrial fibrillation (HCC) Atrial fibrillation 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) DM [...] diastolic heart failure 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 No * Full Code Date Activated Date [...] Power of Attor kim? No Care Teams Legal Archivist Relationship Specialty Start Date End Date Natalia Heller PA-C [address] [facility] [address] [facility] [place] [address] PCP - General Physician Bag Filler 08/28/24 documented as of this encounter
--- OUTSIDE RECORDS SUMMARY | 2024-12-10 16:43 | External Medical Summary | Summary of Care ---
Author Name Unknown Organization [facility] Address [address] [address] [address] Phone [phone] Care Team Providers Care Assistant Front Office Manager Name Role Phone Natalia Heller PA-C Primary Care Provider [phone] Reason for Visit * Reason Onset Date Comments Med Request 12/01/2024 Encounter Details Date Type Department Care Team (Late st Contact Info) Description 12/01/2024 Telephone [facility] [address] [place] [address] Natalia Heller PA-C [address] [place] [address] Med Request Allergies Active Allergy Reactions Criticality Noted Date Comments Alendronate Sodium 06/24/2012 Burning sensation and difficulty breathing Proton Pump Inhibitors Hives 02/20/2002 nexium documented as of this encounter (statuses as of 12/01/2024) Medications Multiple Vitamin (DAILY VALUE MULTIVITAMIN) Tablet [...] [facility]) Use as directed. 10/04/19 24 [...] 12.5 mg once daily, dose decreased [facility] admit 09/26/24, Reported on 11/26/2024 Isosorbide Mononitrate ER 60 MG Oral Tablet Extended Release 24 Hour (Imdur)Indication s:HTN, goal below 130/80,Coronary artery disease involving [place] coronary artery of [place] heart without angina pectoris TAKE ONE TABLET [...] Tablet Sublingual (Nitrostat)Indica tions:Coronary artery disease of [place] artery of [place] heart with stable angina pectoris (HCC) PLACE 1 TABLET UNDER THE TONGUE EVERY 5 MINUTES UP TO 3 DOSES NEEDED FOR CHEST PAIN. IF NO RELIEF CALL 911 OR GO TO ER 25 Tablet 11 4 8:35 AM EDT 07/02/20 24 025 Active Albuterol Sulfate HFA 108 [...] Oral Tablet (Lasix)Indication s:Coronary artery disease of [place] artery of [place] heart with stable angina pectoris (HCC) Take 1 Tablet by mouth in the morning. 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 310 units in pump. Getting from novonordisk PAP 025 Discontin ued(Refil l) Hospital, Clinic, or Other Facility Administered Medication Ordered Dose Route Frequency Start Date End Date Status Albuterol Sulfate (Proventil) (2.5 MG/3ML) 0.083% inhalation solution 2.5 mgIndications:COPD with exacerbation (HCC),SOB (shortness of breath),Asthma with COPD (chronic obstructive pulmonary disease) (HCC) 2.5 mg NEBULIZER PRN 08/21/2024 08/21/2025 Active documented as of this encounter (statuses as of 12/01/2024) Active Problems Problem Noted Date Diagnosed Date [...] artery disease of n ative artery of [place] heart with stable angina pectoris 12/08/2020 Assessment [...] CARDIOLOGY REFERRAL OP Cervical spinal stenosis 08/21/2008 residential current use of anticoagulant therapy 0 05/03/2005 Assessment & Plan (10/14/2024 1:10 PM EDT): Orders: CARDIOLOGY REFERRAL OP Warfarin Sodium 5 MG Oral Tablet (Coumadin); TAKE ONE TABLET TO ONE AND ONE-HALF TABLET BY MOUTH EVERY DAY DIRECTED BY COUMADIN CLINIC documented as of this encounter (statuses as of 12/01/2024) Resolved Problems Problem Noted Date Diagnosed Date [...] as of this encounter (statuses as of 12/01/2024) Immunizations Name Administration Dates Next Due COVID-19 [...] Not on file 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 Not on f ile Not on file [...] Telephone Encounter - Shanthi Franks RPh - 12/01/2024 12:34 PM EDT Short supply sent to [facility]. Appears that her PAP was never re-enrolled. Will address this on Sunday in office, as I will need signatures from patient. Shanthi Franks, PharmD, BCACP Clinical Pharmacist Medication Therapy Disease Management 12/01/2024, 12:35 PM * Telephone Encounter - Latricia Wolfe LPN - 12/01/2024 12:29 PM EDT Patient calling, she has no insulin at home. Her insulin pump is starting to blink. Please send short term supply to [facility] * Telephone Encounter - Debbie Laird direct care worker - 12/01/2024 12:20 PM EDT Patient calling requesting the following medication below that is listed as "Historical". The following information was provided: Medication Name: Insulin Aspart Strength: 100 unit/ml Directions: Inject under the skin 310 units in pump Preferred Quantity: 30 day supply Previous Prescriber: Family practice Preferred Pharmacy: patient states that she picks it up at the office Please review and approve if appropriate. Thank you, Debbie Laird Bench Tool Maker [facility] 12/01/2024,12:22 PM documented in this encounter Plan of Treatment Upcoming Encounters Date Type Department Care Team (Late st Contact Info) Description 12/03/2024 2:10 PM EDT [facility]tico[facility], [facility] [address] [facility] [phone] [facility] [address] [place] [address] 12/03/2024 2:20 PM EDT [facility] [address] [facility] [phone] [facility] [address] [place] [address] 12/08/2024 10:00 AM EDT Home Visit isinger at [facility] [address] [place] [address] Rosalind Smith, RN [address] [place] [address] 02/18/2025 12:00 PM EDT [facility] Visit [facility] [address] [phone] Natalia Heller PA-C [address] [place] [address] 04/20/2025 8:40 AM EDT Office Visit Hepatology, [facility] [address] [place] [phone] Apple Walker, DO [address] [place] [phone] 08/17/2025 11:00 AM EST Office Visit Sleep Disorders Ctr [facility] [address] [place] [phone] Lea Rausch, DO [address] [place] [address] Scheduled Procedures Name Priority Associated Diagnoses Date/Ti [...] D LEVEL ONCE IN A LIFETIME-USE SMARTSET# [id number] Completed 05/09/2024, 06/18/2020, 07/25/2019, Additional history exists [...] this encounter Medical Devices Implanted Type Area Rippler Device Identifier Shelf Expiration Date Model / Serial / Lot Graft Cervical 6x8 [id number] - [id number] Implanted:Qt y: 2 on 08/21/2008 at [place] [facility] [place] - Human Spine Cervical Lif[employer]et Co [id number] / / Screw Spine 14mm [id number] - [id number] Implanted:Qt y: 2 on 08/21/2008 at [place] [facility] [place] N/A: Spine Cervical CARSON [employer] CARSON DEPUY 50-014 / / Depuy [place] 14 Mm Sd Con Scr Implanted:Qt y: 2 on 08/21/2008 at [place] [facility] [place] N/A: Spine Cervical [employer] CARSON DEPUY [id number] / / Description:Depuy skyline 14 mm SD con SCR 34 Mm Plate Implanted:Qt y: 1 on 08/21/2008 at [place] [facility] [place] N/A: Spine Cervical / / Description:34 mm Depuy plat e 14 Mm Variable Rescue Implanted:Qt y: 2 on 08/21/2008 at [place] [facility] [place] N/A: Spine Cervical / / Description:14 mm variable r escue Screw 3.5x14 Mntr Fa [id number] - [id number] Implanted:Qt y: 10 on 07/13/2010 at [place] [facility] [place] N/A: Spine Cervical JNJ : ETHICON CARDIOVATIONS [id number] / / Devaughn [id number] - [id number] Implanted:Qt y: 1 on 07/13/2010 at [place] [facility] [place] N/A: Spine Cervical JNJ : ETHICON CARDIOVATIONS [id number] / / Screw Inner Mntr [id number] - [id number] Implanted:Qt y: 8 on 07/13/2010 at [place] [facility] [place] N/A: Spine Cervical JNJ : ETHICON CARDIOVATIONS [id number] / / Nut Outer Xcon [id number] - [id number] Implanted:Qt y: 2 on 07/13/2010 at [place] [facility] [place] N/A: Spine Cervical JNJ : ETHICON CARDIOVATIONS [id number] / / Screw Inner Xcon [id number] - [id number] Implanted:Qt y: 2 on 07/13/2010 at [place] [facility] [place] N/A: Spine Cervical JNJ : ETHICON CARDIOVATIONS [id number] / / Plate 35mm Xcon [id number] - [id number] Implanted:Qt y: 1 on 07/13/2010 at [place] [facility] [place] N/A: Spine Cervical JNJ : ozuke [id number] / / documented as of this encounter Visit Diagnoses Diagnosis COPD, moderate (HCC)- Primary Chronic airway obstruction, not elsewhere classified Chronic atrial fibrillation (HCC) Atrial fibrillation Coronary artery disease of [place] artery of [place] heart with stable angina pectoris (HCC) DM (diabetes mellitus) type II, controlled, with peripheral vascular disorder ([facility]) Advanced care planning/counseling discussion Other specified counseling COPD, moderate (HCC)- Primary Chronic airway obstruction, not elsewhere classified Chronic diastolic congestive heart failure (HCC) Chronic diastolic heart failure Senile osteoporosis Acquired absence of other toe(s), unspecified side ([facility]) Hospital discharge follow-up- Primary Other follow-up examination Acute on chronic diastolic congestive heart failure (HCC) Acute on chronic diastolic heart failure Coronary artery disease of [place] artery of [place] heart with stable angina pectoris (HCC) Chronic atrial fibrillation (HCC) Atrial fibrillation Dyslipidemia, goal LDL below 100 Other and unspecified hyperlipidemia residential current use of anticoagulant therapy SOB (shortness [...] the patient have Health Care Power of Web Assistant? No * Full Code Date Activated [...] of Attor kim? No Care Teams Assistant Front Office Manager Relationship Specialty Start Date End Date Natalia Heller PA-C [facility] [place] [phone] PCP - General Physician Smoking Pipe Repairer 08/28/24 documented as of this encounter
--- OUTSIDE RECORDS SUMMARY | 2024-12-10 16:43 | External Medical Summary | Summary of Care ---
Author Name Unknown Organization [facility] Address [address] [address] Phone [phone] Care Team Providers Care Voice And Data Technician Name Role Phone Natalia Heller PA-C Primary Care Provider [phone] Reason for Visit * Reason Comments Dosage Adjustment In Person (Anticoag Cl inic) Encounter Details Date Type Department Care Team (Latest Contact Info) Description 12/03/2024 2:10 PM EDT Anticoagulation Pharmacy, [facility] [address] [place] [address] [facility] [address] [place] [id number] Anticoagulation management encounter*; History of DVT (deep vein thrombosis); Chronic atrial fibrillation (HCC) Allergies Active Allergy Reactions Criticality Noted Date Comments Alendronate Sodium 06/24/2012 Burning sensation and difficulty breathing Proton Pump Inhibitors Hives 02/20/2002 nexium documented as of this encounter (statuses as of 12/04/2024) Medications Multiple Vitamin (DAILY VALUE MULTIVITAMIN) Tablet [...] type II, controlled, with peripheral vascular disorder ([facility]) Use as directed. 4 Active Accu-Chek Softclix LancetsIndication s:Type 2 diabetes mellitus with foot ulcer, with long-term current use of insulin ([facility]),DM (diabetes mellitus) type II, controlled, with peripheral vascular disorder ([facility]) Use to test blood glucose 4 [...] differently: 12.5 mg once daily, dose decreased [facility] admit 09/26/24, Reported on 11/26/2024 Isosorbide Mononitrate ER 60 MG Oral Tablet Extended Release 24 Hour (Imdur)Indication s:HTN, goal below 130/80,Coronary artery disease involving [place] coronary artery of [place] heart without angina pectoris TAKE ONE [...] Tablet Sublingual (Nitrostat)Indica tions:Coronary artery disease of [place] artery of [place] heart with stable angina pectoris (HCC) [...] Oral Tablet (Lasix)Indication s:Coronary artery disease of [place] artery of [place] heart with stable angina pectoris (HCC) Take 1 Tablet by mouth in the morning. 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,Deep vein [...] as of this encounter (statuses as of 12/04/2024) Active Problems Problem Noted Date Diagnosed Date [...] artery disease of n ative artery of [place] heart with stable angina pectoris 12/08/2020 [...] as of this encounter (statuses as of 12/04/2024) Resolved Problems Problem Noted Date Diagnosed Date [...] as of this encounter (statuses as of 12/04/2024) Immunizations Name Administration Dates Next Due COVID-19 mRNA, LNP-s, No Pre serve, 2-Dose Series (Moderna) 10/13/2020,09/15/2020 COVID-19, mRNA, LNP-s, PF, B ooster, 100mcg/0.5mg (Moderna) 07/20/2021 Covid-19, Mrna, Lnp-s, Pf, B ivalent, 30 Mcg, IM, 12 yrs and above (Intematix) 05/08/2022 Pneumococcal Conjugate Vacc, 13 Valent (Prevnar) [...] No 11/19/2023 Does the household have a [facility] source of income? 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 Not on f ile Not on file [...] this encounter Progress Notes * Shanthi Franks, [facility] - 12/03/2024 2:24 PM EDT Images from the original note were not included. Medication Therapy Disease Management - Anticoagulation Patient: Graciela Mobley | : 1950 Subjective Contacts Contact Date/Time Type Contact Phone/Fax 12/03/2024 12:10 PM EDT Email () Incomplete setup to send messages Patient-Reported Symptoms: Patient Findings Negatives: Signs/symptoms of thrombosis, Signs/symptoms of bleeding, Change in health, Change in alcohol use, Change in activity, Upcoming invasive procedure, Missed doses, Extra doses, Change in medications, Change in diet/appetite, Bruising Objective Current Warfarin Dose As of 12/03/2024 Warfarin maintenance plan: 5 mg (5 mg x 1) every day INR Result As of 12/03/2024 INR goal: 2.0-3.0 INR used for dosin.9 (12/03/2024) Assessment & Plan Warfarin Plan As of 12/03/2024 Full warfarin instructions: 12/03: 10 mg; Otherwise 5 mg every day Next INR check: 01/14/2025 Repeat PT/INR in 6 week(s) Weekly dose: not changed Additional Dosing Information: Description I spent a total of 10-19 minutes (exact time 10 mins) on the date of service in preparation, delivery, and documentation of the care provided to Graciela Mobley excluding any time spent in the performance of separately billed services or time spent by another provider/QHP. Shanthi Franks [facility] Clinical Pharmacist 12/03/2024, 2:24 PM documented in this encounter Plan of Treatment Upcoming Encounters Date Type Department Care Team (Late st Contact Info) Description 12/08/2024 10:00 AM EDT Home Visit [facility] [address] [facility] [place] [address] Rosalind Smith RN [address] [facility] [place] [address] 01/14/2025 10:00 AM EDT Anticoagulation Pharmacy, [facility] [place] [phone] [place] [address] [place] [address] 01/14/2025 10:10 AM EDT Office Visit Pharmacy, [facility] [place] [address] [place] [address] [place] [address] 02/18/2025 12:00 PM EDT Office Visit Family Practice, [facility] [place] [phone] Natalia Heller PA-C [address] [place] [address] 04/20/2025 8:40 AM EDT Office Visit Hepatology, [facility] [address] [place] [phone] Apple Walker, DO [address] [place] [id number] 08/17/2025 11:00 AM EST Office Visit Sleep Disorders Ctr [facility] [address] [place] [phone] Lea Rausch, DO [address] [place] [phone] Scheduled Orders Name Type Priority Associated Diagnoses Orde r Schedule PT INR Lab Routine History of DVT (deep vein thrombosis) Chronic atrial fibrillation (HCC) Anticoagulation management encounter 26 Occurrences starting 12/03/2024 until 12/03/2025 INR FINGERSTICK, POINT OF CARE Point of Care Testing - Unsolicited Results STAT History of DVT (deep vein thrombosis) Chronic atrial fibrillation (HCC) Anticoagulation management encounter Every 2 Weeks for 26 Occurrences starting 12/03/2024 until 12/03/2025, 1 completed Scheduled Procedures Name Priority Associated Diagnoses Date/Ti [...] D LEVEL ONCE IN A LIFETIME-USE SMARTSET# [id number] Completed 05/09/2024, 06/18/2020, 07/25/2019, Additional history exists [...] this encounter Medical Devices Implanted Type Area Auth Specialist Device Identifier Shelf Expiration Date Model / Serial / Lot Graft Cervical 6x8 [id number] - [id number] Implanted:Qt y: 2 on 08/21/2008 at [place] [facility] [place] Tissue - Human Spine Cervical [employer] [id number] / / Screw Spine 14mm [id number] - [id number] Implanted:Qt y: 2 on 08/21/2008 at OR [facility] [place] N/A: Spine Cervical CARSON [employer] CARSON DEPUY [id number] / / Depuy [place] 14 Mm Sd Con Scr Implanted:Qt y: 2 on 08/21/2008 at [place] [facility] [place] N/A: Spine Cervical CARSON [employer] CASRON DEPUY 60-014 / / Description:Depuy skyline 14 [...] variable r escue Screw 3.5x14 Mntr Fa [id number] - [id number] Implanted:Qt y: 10 on 07/13/2010 at [place] [facility] [place] N/A: Spine Cervical JNJ : ETHICON [employer]OVATIONS [id number] / / Devaughn [id number] - [id number] Implanted:Qt y: 1 on 07/13/2010 at OR [facility] [place] N/A: Spine Cervical JNJ : ETHICON CARDIOVATIONS [id number] / / Screw Inner Mntr [id number] - [id number] Implanted:Qt y: 8 on 07/13/2010 at [place] [facility] [place] N/A: Spine Cervical JNJ : ETHICON CARDIOVATIONS [id number] / / Nut Outer Xcon [id number] - [id number] Implanted:Qt y: 2 on 07/13/2010 at [place] [facility] [place] N/A: Spine Cervical JNJ : ETH[employer]ON [employer]ATIONS [id number] / / Screw Inner Xcon [id number] - [id number] Implanted:Qt y: 2 on 07/13/2010 at [place] [facility] [place] N/A: Spine Cervical JNJ : ETH[employer]ON [employer]ATIONS [id number] / / Plate 35mm Xcon [id number] - [id number] Implanted:Qt y: 1 on 07/13/2010 at [place] [facility] [place] N/A: Spine Cervical JNJ : ETHICON C[employer]OVATIONS [id number] / / documented as of this encounter Procedures Procedure Name Priority Date/Time Associated Diagnosis Comments INR FINGERSTICK, POINT OF CARE STAT 12/03/2024 2:32 PM EDT History of DVT (deep vein thrombosis) Chronic atrial fibrillation (HCC) Anticoagulation management encounter documented in this encounter Results * INR FINGERSTICK, POINT OF CARE (12/03/2024 2:32 PM EDT) Fingerstick INR 1.9 INR 3:25 PM EDT [facility]- Blood 12/03/2024 2:32 PM EDT 12/03/2024 3:25 PM EDT Narrative [facility]-01 - 12/03/2024 3:25 PM EDT Therapeutic ranges for non-operative patients: Prophylaxsis/treatment of DVT: (Range:2.0-3.0) Treatment of pulmonary embolism:(Range:2.0-3.0) Prevention of systemic embolism from: -tissue heart valves -acute myocardial infarction -valvular heart disease -atrial fibrillation (Range: 2.0-3.0) Mechanical prosthetic valves: (Range: 2.5-3.5) us Shanthi Franks [facility] POINT OF CARE TEST DOCKED DEVICE UNSOLICITED RESULTS Final Result [facility] [address] [place] [address], [facility] documented in this encounter Visit Diagnoses Diagnosis COPD, moderate (HCC)- Primary Chronic airway obstruction, not elsewhere classified Chronic atrial fibrillation (HCC) Atrial fibrillation Coronary artery disease of [place] artery of [place] heart with stable angina pectoris (HCC) [...] diastolic heart failure Coronary artery disease of [place] artery of [place] heart with stable angina pectoris (HCC) Chronic atrial fibrillation (HCC) Atrial fibrillation Dyslipidemia, goal LDL below 100 Other and unspecified hyperlipidemia 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 No * Full Code Date Activated Date [...] Power of Attor kim? No Care Teams Voice And Data Technician Relationship Specialty Start Date End Date Natalia Heller PA-C [address] [place] [address] PCP - General Physician Probation Supervisor 08/28/24 documented as of this encounter
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
--- OUTSIDE RECORDS SUMMARY | 2024-12-10 16:44 | External Medical Summary | Summary of Care ---
Author Name Unknown Organization [facility] Address [address] [address] Phone [phone] Care Team Providers Care Laborer Brush Clearing Name Role Phone Natalia Heller PA-C Primary Care Provider [phone] Reason for Visit * Reason Onset Date Comments Durable Medical Equipment 11/27/2024 CPAP s upplies and NOC Encounter Details Date Type Department Care Team (Late st Contact Info) Description 11/27/2024 Telephone Sleep Disorders Ctr [facility] [address] [facility] [place] [address] Lea Rausch DO [address] [facility] [place] [address] Durable Medical Equipment (CPAP supplies a... Allergies Active Allergy Reactions Criticality Noted Date Comments Alendronate Sodium 06/24/2012 Burning sensation and difficulty breathing Proton Pump Inhibitors Hives 02/20/2002 nexium documented as of this encounter (statuses as of 11/27/2024) Medications Multiple Vitamin (DAILY VALUE MULTIVITAMIN) Tablet [...] skin. 310 units in pump. Getting from [employer] PAP Active Aspirin 81 MG Oral Tablet Delayed Release Take 1 Tablet by mouth in the morning. 4 Active Metoprolol Succinate ER 50 MG Oral Tablet Extended Release 24 Hour (toPROL XL) TAKE ONE TABLET BY MOUTH TWICE A DAY 180 Tablet 3 05/09/2024 8:51 AM EDT 4 025 Active Additional Information Patient taking differently: 12.5 mg once daily, dose decreased [facility] admit 09/26/24, Reported on 11/26/2024 Isosorbide Mononitrate ER 60 MG Oral Tablet Extended Release 24 Hour (Imdur)Indication s:HTN, goal below 130/80,Coronary artery disease involving [place]sem[place] indian tribe coronary artery of nansem[place] indian tribe heart without angina pectoris TAKE [...] Tablet Sublingual (Nitrostat)Indica tions: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 Active Hospital, Clinic, or Other Facility Administered Medication Ordered Dose Route Frequency Start Date End Date Status Albuterol Sulfate (Proventil) (2.5 MG/3ML) 0.083% inhalation solution 2.5 mgIndications:COPD with exacerbation (HCC),SOB (shortness of breath),Asthma with COPD (chronic obstructive pulmonary disease) (HCC) 2.5 mg NEBULIZER PRN 08/21/2024 08/21/2025 Active documented as of this encounter (statuses as of 11/27/2024) Active Problems Problem Noted Date Diagnosed Date [...] artery disease of n ative artery of nansemond indian tribe heart with stable angina pectoris [...] as of this encounter (statuses as of 11/27/2024) Resolved Problems Problem Noted Date Diagnosed Date [...] as of this encounter (statuses as of 11/27/2024) Immunizations Name Administration Dates Next Due COVID-19 [...] Not on file 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 Not on [...] encounter Miscellaneous Notes * Telephone Encounter - Radha Muro OSA - 11/27/2024 9:05 AM EDT DME orders for CPAP and NOC are submitted to . documented in this encounter Plan of Treatment Upcoming Encounters Date Type Department Care Team (Late st Contact Info) Description 12/03/2024 2:10 PM EDT Anticoagulation Pharmacy, [address] [place] [phone] [facility] [address] [place] [facility] [place] [address] 12/03/2024 2:20 PM EDT Office [address] [phone] [facility] [address] [place] [facility] [place] [address] 12/08/2024 10:00 AM EDT [facility] [address] [place] [address] Rosalind Smith, RN [address] [place] [address] 02/18/2025 12:00 PM EDT Office Visit [facility], [facility] [address] [facility] [phone] Natalia Heller PA-C [address] [facility] [address] [address] 04/20/2025 8:40 AM EDT Office Visit Hepatology, [facility] [address] [place] [phone] Apple Walker, DO [address] [place] [address] 08/17/2025 11:00 AM EST Office Visit Sleep Disorders [facility] [address] [place] [phone] Lea Rausch, DO [address] [place] [address] Scheduled Procedures Name Priority Associated Diagnoses Date/Ti [...] D LEVEL ONCE IN A LIFETIME-USE SMARTSET# [id number] Completed 05/09/2024, 06/18/2020, 07/25/2019, Additional history exists [...] this encounter Medical Devices Implanted Type Area Quality Analyst Device Identifier Shelf Expiration Date Model / Serial / Lot Graft Cervical 6x8 [id number] - [id number] Implanted:Qt y: 2 on 08/21/2008 [place] [facility] [place] - Human Spine Cervical [employer] [id number] / / Screw Spine 14mm 50-014 - [id number] Implanted:Qt y: 2 on 08/21/2008 at [place] [facility] [place] N/A: Spine Cervical [employer]SON [employer] CARSON DEPUY 8-50-014 / / Depuy [place] 14 Mm Sd Con Scr Implanted:Qt y: 2 on 08/21/2008 at [place] [facility] [place]/A: Spine Cervical [employer]PU[employer] 8-60-014 / / Description:Depuy [place] 14 mm SD con SCR 34 Mm Plate Implanted:Qt y: 1 on 08/21/2008 at [place] [facility] [place]/A: Spine Cervical [id number] / / Description:34 mm Depuy plat e 14 Mm Variable Rescue Implanted:Qt y: 2 on 08/21/2008 at [place] [facility] [place]/A: Spine Cervical [id number] / / Description:14 mm variable r escue Screw 3.5x14 Mntr Fa [id number] - [id number] Implanted:Qt y: 10 on 07/13/2010 [place] [facility] [place]/A: Spine Cervical JN[place] : ETH[employer]ON [employer]ATIONS [id number] / / Devaughn 3.7m486ll [id number] - [id number] Implanted:Qt y: 1 on 07/13/2010 [place] [facility] [place]A: Spine Cervical JNJ : ETH[employer]ON CARDIOVATIONS [id number] / / Screw Inner Mntr [id number] - [id number] Implanted:Qt y: 8 on 07/13/2010 at [place] [facility] [place]A: Spine Cervical JNJ : ETH[employer]ON CARDIOVATIONS [id number] / / Nut Outer Xcon [id number] - [id number] Implanted:Qt y: 2 on 07/13/2010 at [place] [facility] [place]/A: Spine Cervical JNJ : ETH[employer]ON [employer]ATIONS [id number] / / Screw Inner Xcon [id number] - [id number] Implanted:Qt y: 2 on 07/13/2010 at [place] [facility] [place]/A: Spine Cervical JNJ : ETH[employer]ON CARDIOVATIONS [id number] / / Plate 35mm Xcon [id number] - [id number] Implanted:Qt y: 1 on 07/13/2010 at [place] [facility] [place]/A: Spine Cervical JNJ : ETHICON CARDIOVATIONS [id number] / / documented as of this encounter [...] the patient have Health Care Power of Welder Explosion? No * Full Code Date Activated Date [...] Power of Attor kim? No Care Teams Laborer Brush Clearing Relationship Specialty Start Date End Date Natalia Heller PA-C [address] [place] [id number] PCP - General Physician Automobile Travel Club Counselor 08/28/24 documented as of this encounter
--- OUTSIDE RECORDS SUMMARY | 2024-12-10 16:44 | External Medical Summary | Summary of Care ---
Author Name Unknown Organization [facility] Address [address] [facility] [place] [address] Phone [phone] Care Team Providers Care Rn Appeals Name Role Phone Natalia Heller PA-C Primary Care Provider [phone] Reason for Visit * Reason Comments Dosage Adjustment In Person (Anticoag Cl inic) Encounter Details Date Type Department Care Team (Latest Contact Info) Description 11/19/2024 11:50 AM EDT Anticoagulation Pharmacy, [facility] [address] [place] [address] [facility] [address] [place] [id number] Anticoagulation management encounter*; History of DVT (deep vein thrombosis); Chronic atrial fibrillation (HCC) Allergies Active Allergy Reactions Criticality Noted Date Comments Alendronate Sodium 06/24/2012 Burning sensation and difficulty breathing Proton Pump Inhibitors Hives 02/20/2002 nexium documented as of this encounter (statuses as of 11/19/2024) Medications Multiple Vitamin (DAILY VALUE MULTIVITAMIN) Tablet Take 1 Tablet by mouth in the morning. Active Fluticasone Propionate 50 MCG/ACT Nasal Suspension (Flonase)Indicati ons:Chronic rhinitis Administer 2 Sprays into each nostril in the morning. 16 g 1 3 Active Accu-Chek Guide Me w/Device KitIndications:Ty pe 2 diabetes mellitus with foot ulcer, with long-term current use of insulin ([facility]),DM (diabetes mellitus) type II, controlled, with peripheral vascular disorder ([facility]) Use as directed. 4 Active Accu-Chek Softclix LancetsIndication s:Type 2 diabetes mellitus with foot ulcer, with long-term current use of insulin ([facility]),DM (diabetes mellitus) type II, controlled, with peripheral vascular disorder ([facility]) Use to test blood glucose 4 times [...] skin. 310 units in pump. Getting from [employer] PAP Active Aspirin 81 MG Oral Tablet Delayed Release Take 1 Tablet by mouth in the morning. 4 Active Metoprolol Succinate ER 50 MG Oral Tablet Extended Release 24 Hour (toPROL XL) TAKE ONE TABLET BY MOUTH TWICE A DAY 180 Tablet 3 05/09/2024 8:51 AM EDT 4 025 Active Additional Information Patient taking differently: 12.5 mg once daily, dose decreased [facility] admit 09/26/24, Reported on 11/19/2024 Isosorbide Mononitrate ER 60 MG Oral Tablet Extended Release 24 Hour (Imdur)Indication s:HTN, goal below 130/80,Coronary artery disease involving northern [place] coronary artery of northern [place] heart without angina pectoris TAKE ONE TABLET [...] Tablet Sublingual (Nitrostat)Indica tions:Coronary artery disease of [place] artery of [place] heart with stable angina pectoris (HCC) PLACE [...] Oral Tablet (Lasix)Indication s:Coronary artery disease of [place] artery of [place] heart with stable angina pectoris (HCC) Take 1 Tablet by mouth in the morning. 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 90 Capsule 10/13/2024 7:59 AM EDT 5 Active Additional Information Patient taking differently: 20 mEqOral Daily(AM),Every Sunday, Sunday, and Sunday, Reported on 11/19/2024 Anoro Ellipta 62.5-25 MCG/ACT Inhalation Aerosol Powder Breath Activated (umeclidinium-iain anterol)Indicatio ns:COPD, moderate (HCC) Inhale 1 Puff by mouth in the morning. 90 Each 1 10/17/2024 7:02 AM EDT 5 Active Warfarin Sodium 5 MG Oral Tablet (Coumadin)Indicat ions:snf current use of anticoagulant therapy,Deep vein thrombosis [...] as of this encounter (statuses as of 11/19/2024) Active Problems Problem Noted Date Diagnosed Date [...] arapaho heart with stable angina pectoris 12/08/2020 Assessment [...] CARDIOLOGY REFERRAL OP Cervical spinal stenosis 08/21/2008 snf current use of anticoagulant therapy 0 05/03/2005 Assessment & Plan (10/14/2024 1:10 PM EDT): Orders: CARDIOLOGY REFERRAL OP Warfarin Sodium 5 MG Oral Tablet (Coumadin); TAKE ONE TABLET TO ONE AND ONE-HALF TABLET BY MOUTH EVERY DAY DIRECTED BY [facility]IN CLINIC documented as of this encounter (statuses as of 11/19/2024) Resolved Problems Problem Noted Date Diagnosed Date [...] as of this encounter (statuses as of 11/19/2024) Immunizations Name Administration Dates Next Due COVID-19 [...] Not on file 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 [...] this encounter Progress Notes * Shanthi Franks, [facility] - 11/19/2024 11:02 AM EDT Medication Therapy Disease Management - Anticoagulation Patient: Graciela Mobley | : 1950 Subjective Patient-Reported Symptoms: Patient Findings Positives: Hospital admission (discharged from rehab 11/14/24 and has been taking warfarin 5 mg daily in PM since being home) Negatives: Signs/symptoms of thrombosis, Signs/symptoms of bleeding, Change in health, Change in alcohol use, Change in activity, Upcoming invasive procedure, Missed doses, Extra doses, Change in medications, Change in diet/appetite, Bruising Objective Current Warfarin Dose As of 11/19/2024 Warfarin maintenance plan: 10 mg (5 mg x 2) every Sun, Sun, Sun; 5 mg (5 mg x 1) all other days INR Result As of 11/19/2024 INR goal: 2.0-3.0 INR used for dosin.0 (11/19/2024) Assessment & Plan Warfarin Plan As of 11/19/2024 Full warfarin instructions: 5 mg every day Next INR check: 12/03/2024 Repeat PT/INR in 2 week(s) Weekly dose: updated to reflect what patient has been taking Additional Dosing Information: Description I spent a total of 10-19 minutes (exact time 10 mins) on the date of service in preparation, delivery, and documentation of the care provided to Graciela Mobley excluding any time spent in the performance of separately billed services or time spent by another provider/QHP. Shanthi Franks [facility] Clinical Pharmacist 11/19/2024, 11:02 AM documented in this encounter Plan of Treatment Upcoming Encounters Date Type Department Care Team (Late st Contact Info) Description 11/26/2024 10:00 AM EDT Office [facility] [address] [place] [phone] Lea Rausch DO [address] [place] [address] 12/03/2024 2:10 PM EDT Antico[place] Pharmacy, [place] [address] [facility] [place] [phone] [facility] [address] [place] [address] 12/03/2024 2:20 PM EDT Office Visit Pharmacy, [address] [facility] [phone] [facility] [address] [place] [address] 12/08/2024 10:00 AM EDT Home Visit jaylene at [facility] [address] [place] [address] Rosalind Smith, RN [address] [place] [phone] 02/18/2025 12:00 PM EDT Office Visit Family [facility], [address] [place] [phone] Natalia Heller PA-C [address] [place] [phone] 04/20/2025 8:40 AM EDT Office Visit Hepatology, [facility] [address] [place] [phone] Apple Walker DO [address] [place] [phone] Scheduled Procedures Name Priority Associated Diagnoses Date/Ti [...] ASSESSMENT COMPLETED IN PAST YEAR FOR COPD 11/19/2025 11/19/2024 Pneumococcal Vaccine: 50+ Years Completed 01/20/2016, 01/15/2015, 09/18/2006, Additional history exists Colonoscopy Discontinued 09/18/2023, 09/06, 11/16/2020, Additional history exists Colorectal Cancer Screening Discontinued RETIRED - COLONOSCOPY-EVERY 2 YRS AGES 18-100 Discontinued 09/18/2023, 09/18/2023, 11/16/2020, Additional history exists Influenza Vaccine (FLU shot) Completed 04/15/2024, 04/04/2023, 05/08/2022, Additional history exists Alpha-1 Antitrypsin Completed 05/09/2024 VITAMIN D LEVEL ONCE IN A LIFETIME-USE SMARTSET# [id number] Completed 05/09/2024, 06/18/2020, 07/25/2019, Additional history exists [...] this encounter Medical Devices Implanted Type Area Clothes Designer Device Identifier Shelf Expiration Date Model / Serial / Lot Graft Cervical 6x8 [id number] - [id number] Im[place]ed:Qt y: 2 [place] [facility] [place] Human Spine Cervical Lif[employer] Co [id number] / / Screw Spine 14mm - [id number] Implanted:Qt y: 2 [place] 08[place]21[place] [facility] [place]A: Spine Cervical CARSON [employer] CAR[employer] DEPU[employer] / / Depuy [place] 14 Mm Sd Con Scr Implanted:Qt y: 2 [place] 08[place]21[place] [facility] [place]: Spine Cervical [employer] CAR[employer] DEPUY 60 / / Description:Depuy [place] 14 mm SD con SCR 34 Mm Plate Implanted:Qt y: 1 on 08[place]21[place] [facility] [place]: Spine Cervical / / Description:34 mm Depuy plat e 14 Mm Variable Rescue Implanted:Qt y: 2 on 08[place]21/[place] [facility] [place]: Spine Cervical / / Description:14 mm variable r escue Screw 3.5x14 Mntr Fa [id number] - [id number] Implanted:Qt y: 10 [place] 07[place]13[place] [facility] [place]: Spine Cervical JNJ : ETHICON CARDIOVATIONS [id number] / / Devaughn [id number] - [id number] Implanted:Qt y: 1 [place] 07[place]13[place]2010 [place] [facility] [place]: Spine Cervical JNJ : ETHICON CARDIOVATIONS [id number] / / Screw Inner Mntr [id number] - [id number] Implanted:Qt y: 8 on 07[place]13[place]2010 [place] [facility] [place]: Spine Cervical JNJ : ETHICON CARDIOVATIONS [id number] / / Nut Outer Xcon [id number] - [id number] Implanted:Qt y: 2 on 07[place]13/2010 [place] [facility] [place]: Spine Cervical JNJ : ETH[employer]ON CARD[employer]ATIONS [id number] / / Screw Inner Xcon [id number] - [id number] Implanted:Qt y: 2 on 07[place]13/2010 [place] [facility] [place]: Spine Cervical JNJ : ETH[employer]ON CARDIOVATIONS [id number] / / Plate 35mm Xcon [id number] - [id number] Implanted:Qt y: 1 on 07[place]13/2010 [place] [facility] [place]: Spine Cervical JNJ : ETH[employer]ON C[employer]IOVATIONS [id number] / / documented as of this encounter Procedures Procedure Name Priority Date/Time Associated Diagnosis Comments INR FINGERSTICK, POINT OF CARE STAT 11/19/2024 11:25 AM EDT History of DVT (deep vein thrombosis) Chronic atrial fibrillation (HCC) Anticoagulation management encounter documented in this encounter Results * INR FINGERSTICK, POINT OF CARE (11/19/2024 11:25 AM EDT) Fingerstick INR 3.0 INR 11:47 AM EDT [facility]- Blood 11/19/2024 11:2 5 AM EDT 11/19/2024 11:47 AM EDT Narrative [facility]- - 11/19/2024 11:47 AM EDT Therapeutic ranges for non-operative patients: Prophylaxsis/treatment of DVT: (Range:2.0-3.0) Treatment of pulmonary embolism:(Range:2.0-3.0) Prevention of systemic embolism from: -tissue heart valves -acute myocardial infarction -valvular heart disease -atrial fibrillation (Range: 2.0-3.0) Mechanical prosthetic valves: (Range: 2.5-3.5) Shanthi Franks [facility] LAB POINT OF CARE TEST DOCKED DEVICE UNSOLICITED RESULTS Final Result [facility] [address] [place] [address], [facility] documented in this encounter Visit Diagnoses Diagnosis COPD, moderate (HCC)- Primary Chronic airway obstruction, not elsewhere classified Chronic atrial fibrillation (HCC) Atrial fibrillation 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 No * Full Code Date Activated [...] Power of Attor kim? No Care Teams Rn Appeals Relationship Specialty Start Date End Date Natalia Heller PA-C [address] [place] [id number] PCP - General Physician Export Coordinator 08/28/24 documented as of this encounter
--- OUTSIDE RECORDS SUMMARY | 2024-12-10 16:44 | External Medical Summary | Summary of Care ---
Author Name Unknown Organization [facility] [address] [address] Phone [phone] Care Team Providers Care Manager Business Operations Name Role Phone Natalia Heller PA-C Primary Care Provider [phone] Reason for Visit * Reason Comments Status Check Dosage Adjustment Via Phone (anticoag Cl inic) Encounter Details Date Type Department Care Team (Latest Contact Info) Description 11/17/2024 5:10 PM EDT Anticoagulation Pharmacy, [facility] [address] [place] [phone] [facility] [address] [place] [id number] History of DVT (deep vein thrombosis)*; Chronic atrial fibrillation (HCC) Allergies Active Allergy Reactions Criticality Noted Date Comments Alendronate Sodium 06/24/2012 Burning sensation and difficulty breathing Proton Pump Inhibitors Hives 02/20/2002 nexium documented as of this encounter (statuses as of 11/17/2024) Medications Multiple Vitamin (DAILY VALUE MULTIVITAMIN) Tablet [...] [facility]) Use as directed. 4 Active Accu-Chek [...] skin. 310 units in pump. Getting from [employer] PAP Active Aspirin 81 MG Oral Tablet Delayed Release Take 1 Tablet by mouth in the morning. 4 Active Metoprolol Succinate ER 50 MG Oral Tablet Extended Release 24 Hour (toPROL XL) TAKE ONE TABLET BY MOUTH TWICE A DAY 180 Tablet 3 05/09/2024 8:51 AM EDT 4 025 Active Additional Information Patient taking differently: 12.5 mg once daily, dose decreased [facility] admit 09/26/24, Reported on 11/17/2024 Isosorbide Mononitrate ER 60 MG Oral Tablet Extended Release 24 Hour (Imdur)Indication s:HTN, goal below 130/80,Coronary artery disease involving iqugmiut coronary artery of iqugmiut heart without angina pectoris TAKE ONE TABLET [...] Tablet Sublingual (Nitrostat)Indica tions: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 90 Tablet 5 Active Potassium Chloride ER 10 MEQ Oral Capsule Extended ReleaseIndication s: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) Take 1 Capsule by mouth in the morning. 90 Capsule 10/13/2024 7:59 AM EDT 5 Active Additional Information Patient taking differently: 20 mEqOral Daily(AM),Every Sunday, Sunday, and Sunday, Reported on 11/17/2024 Anoro Ellipta 62.5-25 MCG/ACT Inhalation Aerosol Powder Breath Activated (umeclidinium-iain anterol)Indicatio ns:COPD, moderate (HCC) Inhale 1 Puff by mouth in the morning. 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,Deep vein [...] as of this encounter (statuses as of 11/17/2024) Active Problems Problem Noted Date Diagnosed Date [...] iqugmiut heart with stable angina pectoris 12/08/2020 Assessment [...] CARDIOLOGY REFERRAL OP Cervical spinal stenosis 08/21/2008 [facility] current use of anticoagulant therapy 0 05/03/2005 Assessment & Plan (10/14/2024 1:10 PM EDT): Orders: CARDIOLOGY REFERRAL OP Warfarin Sodium 5 MG Oral Tablet (Coumadin); TAKE ONE TABLET TO ONE AND ONE-HALF TABLET BY MOUTH EVERY DAY DIRECTED BY [facility] documented as of this encounter (statuses as of 11/17/2024) Resolved Problems Problem Noted Date Diagnosed Date [...] as of this encounter (statuses as of 11/17/2024) Immunizations Name Administration Dates Next Due COVID-19 [...] on file 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 Not on f ile Not on [...] EDSelin Summers RN documented in this encounter Progress Notes * Shanthi Franks, [facility] - 11/17/2024 1:15 PM EDT Medication Therapy Disease Management Patient: Graciela Mobley | : 1950 Pt admitted at [facility] 10/29/24-11/14/2024. Chart reviewed, [facility] following and per notes show that patient has been having issues with dexcom. Also teams with [facility] nurse and she reports that the last 3 days, patient's BG has been "very high" for95% of time. Per [facility] nurse, patient restarted her insulin pump on her own, as she was not sent homewith insulin from [facility], but there are prescriptions for it. INR check scheduled while patient is at [facility] with PCP appt. As for DM management, soonest appt available is 12/03/24-- scheduled. It looks like insulin pump was discontinued at discharge from [facility] to [facility], and she was prescribed insulin based off of her needs while inpatient: Glargine 70 units daily and Aspart 15 units three times a day. Per [facility] discharge paperwork, they advised she restart on the insulin pump after di scharge home from rehab. Patient Phone Numbers Called and spoke to patient. She would like to continue with the insulin pump. Breakfast: 25 units; lunch 35 units; supper is 40 units She has reduced what she is eating. She is not over-eating. Eating meat, 1/2 of a potato, green beans, peas, broccoli, asparagus. No baked goods. Drinking diet pepsi or iced tea with sweet and low orwater. Advised to take correction doses and drink water, not diet soda or tea. Follow up on 12/03 for further pump setting management. Shanthi Franks, PharmD, BCACP Clinical Pharmacist Medication Therapy Disease Management 11/17/2024, 1:25 PM documented in this encounter Plan of Treatment Upcoming Encounters Date Type Department Care Team (Late st Contact Info) Description 11/19/2024 11:20 AM EDT Office Visit [facility] [place] [phone] Alfa Jaramillo MD [address] [place] [id number] 11/19/2024 11:50 AM EDT Anticoagulation Pharmacy, [place] [phone] [place] [address] [place] [address] 11/26/2024 10:00 AM EDT Office Visit [facility] [address] [place] [phone] Lea Rausch DO [address] [place] [address] 12/03/2024 2:10 PM EDT Anticoagulation Pharmacy, [place] [place] [phone] [facility] [address] [place] [address] 12/03/2024 2:20 PM EDT Office Visit Pharmacy, [place] [address] [place] [phone] [facility] [address] [facility] [address] 12/08/2024 10:00 AM EDT Home Visit isinger at [facility] [address] [place] [address] Rosalind Smith, RN [address] [place] [phone] 02/18/2025 12:00 PM EDT Office Visit Family Practice, [place] [address] [place] [phone] Natalia Heller PALoiC [address] [place] [address] 04/20/2025 8:40 AM EDT Office Visit Hepatology, [facility] [address] [place] [phone] Apple Walker DO [address] [place] [phone] Scheduled Procedures Name Priority Associated Diagnoses Date/Ti [...] ASSESSMENT COMPLETED IN PAST YEAR FOR COPD 11/17/2025 11/17/2024 Pneumococcal Vaccine: 50+ Years Completed 01/20/2016, 01/15/2015, 09/18/2006, Additional history exists Colonoscopy Discontinued 09/18/2023, 09/06, 11/16/2020, Additional history exists Colorectal Cancer Screening Discontinued RETIRED - COLONOSCOPY-EVERY 2 YRS AGES 18-100 Discontinued 09/18/2023, 09/18/2023, 11/16/2020, Additional history exists Influenza Vaccine (FLU shot) Completed 04/15/2024, 04/04/2023, 05/08/2022, Additional history exists Alpha-1 Antitrypsin Completed 05/09/2024 VITAMIN D LEVEL ONCE IN A LIFETIME-USE SMARTSET# [id number] Completed 05/09/2024, 06/18/2020, 07/25/2019, Additional history exists [...] this encounter Medical Devices Implanted Type Area Auto Suspension And Steering Mechanic Device Identifier Shelf Expiration Date Model / Serial / Lot Graft Cervical 6x8 [id number] - [id number] Implanted:Qt y: 2 on 08/21/2008 [place] [facility] [place] - Human Spine Cervical [employer] [id number] / / Screw Spine 14mm -014 - [id number] Implanted:Qt y: 2 on 08/21/2008 at [place] [facility] [place]/A: Spine Cervical [employer] [id number] / / Depuy [place] 14 Mm Sd Con Scr Implanted:Qt y: 2 on 08/21/2008 at [place] [facility] [place]/A: Spine Cervical [employer] 60014 / / Description:Depuy skyline 14 mm SD con SCR 34 Mm Plate Implanted:Qt y: 1 on 08/21/2008 at [place] [facility] [place]/A: Spine Cervical / / Description:34 mm Depuy plat e 14 Mm Variable Rescue Implanted:Qt y: 2 on 08/21/2008 at [place] [facility] [place]/A: Spine Cervical [id number] / / Description:14 mm variable r escue Screw 3.5x14 Mntr Fa [id number] - [id number] Implanted:Qt y: 10 on 07/13/2010 [place] [facility] [place]A: Spine Cervical [place] : [employer] [id number] / / Devaughn 3.0c474ak [id number] - [id number] Implanted:Qt y: 1 on 07/13/2010 [place] [facility] [place]A: Spine Cervical [place] : [employer] [id number] / / Screw Inner Mntr [id number] - [id number] Implanted:Qt y: 8 on 07/13/2010 at [place] [facility] [place]A: Spine Cervical [place] : [employer] [id number] / / Nut Outer Xcon [id number] - [id number] Implanted:Qt y: 2 on 07/13/2010 at [place] [facility] [place]A: Spine Cervical [place] : [employer] [id number] / / Screw Inner Xcon [id number] - [id number] Implanted:Qt y: 2 on 07/13/2010 [place] [facility] [place]A: Spine Cervical [place] : [employer] [id number] / / Plate 35mm Xcon [id number] - [id number] Implanted:Qt y: 1 on 07/13/2010 at [place] [facility] [place]A: Spine Cervical JN[place] : [employer] [id number] / / documented as of this encounter Visit Diagnoses Diagnosis COPD, moderate (HCC)- Primary Chronic airway obstruction, not elsewhere classified Chronic atrial fibrillation (HCC) Atrial fibrillation 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 No * Full Code Date Activated [...] of Attor kim? No Care Teams Manager Business Operations Relationship Specialty Start Date End Date Natalia Heller PA-C [address] [place] [phone] PCP - General Physician Product Safety And Standards Engineer 08/28/24 documented as of this encounter
--- OUTSIDE RECORDS SUMMARY | 2024-12-10 16:44 | External Medical Summary ---
Author Name Unknown Address Unknown Organization : Laboratory Report Ordering Provider Test Date Status LETICIA HOOD 11/19/2024 11:25:09 Final Therapeutic ranges for non-o perative patients:
Prophylaxsis/treatment of DVT: (Range:2.0-3.0)
Treatment of pulmonary embolism:(Range:2.0-3.0)
Prevention of systemic embolism from:
-tissue heart valves
-acute myocardial infarction
-valvular heart disease
-atrial fibrillation
(Range: 2.0-3.0)
Mechanical prosthetic valves: (Range: 2.5-3.5) Observation Date Value Abnormality Reference (Units ) Status INR in Capillary blood by Coagulation assay 11/19/2024 11:25:09 3.0 (INR) Final Performing Location
--- OUTSIDE RECORDS SUMMARY | 2024-12-10 16:44 | External Medical Summary | Summary of Care ---
Author Name Unknown Organization [facility] Address [address] [address] Phone [phone] Care Team Providers Care Sustainability Director Name Role Phone Natalia Heller PA-C Primary Care Provider [phone] Reason for Visit * Reason Comments NEW PATIENT Sleep Apnea * Evaluate & Treat - Unlimited Visits (Within 10 days (routine)) - Authorized Specialty Diagnoses / Procedures Referred By Roberto gomez Referred To Contact Sleep Medicine / Sleep Disorders Diagnoses COPD with exacerbation (HCC) SOB (shortness of breath) Asthma with COPD (chronic obstructive pulmonary disease) (HCC) Amando Hough PA-C [address] [place] [address] Phone: tel: fax: Referral ID Status Reason Start Date Expiration Date Visits Requested Visits Authorized [id number] Authorized Specialty Services Required 08/21/2024 2 2 Encounter Details Date Type Department Care Team (Late st Contact Info) Description 11/26/2024 10:00 AM EDT Office Visit Sleep Disorders Ctr [facility] [address] [place] [address] Lea Rausch DO [address] [place] [address] Chronic respiratory failure, unspecified whether with hypoxia or hypercapnia (HCC)*; Sleep apnea, unspecified type; COPD, moderate (HCC); Chronic diastolic congestive heart failure (HCC); Atrial fibrillation with rapid ventricular response (HCC); Disorder of iron metabolism, unspecified; Nocturnal hypoxemia Allergies Active Allergy Reactions Criticality Noted Date [...] [facility]) Use as directed. 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 Not on f ile Not on file Not on file documented as of this encounter Last Filed Vital Signs Vital Sign Reading Time Taken Comments Blood Pressure 120/60 11/26/2024 10:08 AM EDT Pulse 76 11/26/2024 10:08 AM EDT Temperature 36.6 °C (97.9 °F) 11/26/2024 10:08 AM E DT Respiratory Rate 16 11/26/2024 10:08 AM EDT Oxygen Saturation 91% 11/26/2024 10:08 AM EDT Inhaled Oxygen Concentration - - Weight 92.1 kg (203 lb) 11/26/2024 10:08 AM EDT Height 165.1 cm (5' 5") 11/26/2024 10:08 AM EDT Body Mass Index 33.78 11/26/2024 10:08 AM EDT documented in this encounter Functional [...] 3:21 PM EDT Selin Phelps, LO * Because of a physical, mental, [...] documented in this encounter Progress Notes * Rausch Lea Vázquez, DO - 11/26/2024 10:11 AM EDT Sleep Medicine Evaluation [address] [place] [address] Consultation was requested by: Amando Sierra PA-C for: "SOB, restless leg syndrome, insomnia" and a copy of this report is being sent to the provider electronically. Relevant available records reviewed. HPI: Graciela Mobley is a(n) 74 year old female presenting for evaluation of insomnia, possible RLS, possible sleep apnea. Accompanied by . Nocturnal oximetry 08/25/2024: basal SpO2 90.4%, nasreen 84%, time <88% 21 min, DONTRELL 17. She has a CPAP. This was started from her most recent hospitalization with respiratory failure (after the referral to Sleep Medicine had been placed). Note that she was admitted to [facility] 3 times so far this year with respiratory difficulty: 09/06 - 09/11/2024 with COPD exacerbation 09/07 RSV - 10/08 2024 with acute hypoxic respiratory failure with CHF exacerbation 10/21 - 10/29/2024 with severe sepsis, acute hypoxic respiratory failure, and DKA She was discharged with CPAP from the most recent hospitalization. [employer] 11. She used CPAP while at [facility], using with all sleep since discharge from [facility]. Had oxygen at [facility], but was not sent home with the oxygen. reports patient is "doing super" since getting out of [facility]. Doing better than she had been for a while. He notes she is benefiting from CPAP. Patient reports a typical bedtime of 9 pm. It takes until 2-3 AM to fall asleep. She is up and down prior to getting to sleep. Occasionally takes anxiety medication at night, which has not helped much. OTC sleep aids do not seem to have helped. Patient awakens 2-3 times overnight, typically for unclear reason. It takes a while to return to sleep. Patient awakens for the day at 6 AM, feeling a little better rested, because she is not as sleepy as prior to her hospitalizations. Patient does feel sleepy or tired during the day. Typical sleep position: side Subjective PAP adherence: excellent Sleep refreshing on PAP: better, though still sleepy. Snoring on PAP: not that has noticed (she did snore prior to CPAP) Before the CPAP there would be times when she would breathe heavily overnight; this is better now with the CPAP. Daytime sleepiness: yes, though improved with CPAP use. Drowsy driving: N/A (she does not drive) Pressure feels comfortable. Interface: FFM Mask leak: no Dry nose or dry mouth: yes Use humidifier? yes Restless Legs Syndrome Symptoms ("+" = yes; "-" = no): + Pain/discomfort in legs at night, notes neuropathy in legs all day long + Urge to move legs at night, and during the day when sitting still. + Better with movement; heat helps. + Disrupts sleep, harder to get to sleep. RLS rating scale 34 (very severe) Kicks covers off. Often feels either too hot or too cold overnight. Parasomnias Symptoms ("+" = yes; "-" = no): - Sleepwalking - Dream-enactment Narcoleptic Symptoms ("+" = yes; "-" = no): - Vivid dreams - Sleep paralysis - Cataplexy Excessive Daytime Sleepiness: Marshall Sleepiness Scale 17 Modified F.O.S.Q. 14 Marshall Sleepiness Scale Question 11/25/2024 12:23 PM EDT - Filed by Patient What is the chance you will doze off in the following situation? Sitting and reading High chance of dozing Watching TV High chance of dozing Sitting inactive in a public place, such as a theater or meeting Moderate chance of dozing As a passenger in a car for an hour without a break High chance of dozing Lying down to rest in the afternoon when circumstances permit Moderate chance of dozing When sitting and talking to someone Slight chance of dozing When sitting quietly after lunch without alcohol Moderate chance of dozing In a car, while stopped for a few minutes in traffic Slight chance of dozing Score (range: 0 - 24) 17 Functional Outcomes Of Sleep Question 11/25/2024 12:27 PM EDT - Filed by Patient Please complete the following questions. Do you have difficulty concentrating because you are sleepy or tired? Yes, extreme Do you have difficulty remembering things because you are sleepy or tired? Yes, extreme Do you have difficulty operating a motor vehicle for short distances (less than 100 miles) because you become sleepy? Yes, extreme Do you have difficulty operating a motor vehicle for long distances (more than 100 miles) because you become sleepy? Yes, extreme Do you have difficulty visiting family or friends in their home because you become sleepy or tired?Yes, moderate Has your relationship with family, friends, or work colleagues been affected because you are sleepyor tired? Yes, moderate Do you have difficulty watching a movie or video because you become sleepy or tired? Yes, moderate Do you have difficulty being as active as you want to be in the evening because you are tired or sleepy? Yes, moderate Do you have difficulty being as active as you want to be in the morning because you are tired or sleepy? Yes, extreme Has your mood been affected because you are sleepy or tired? Yes, extreme Score (range: 10 - 40) 14 Restless Leg Syndrome Rating Scale Question 11/25/2024 12:30 PM EDT - Filed by Patient Please complete the following questions. In the past week... Overall, how would you rate the RLS discomfort in your legs or arms? Very severe Overall, how would you rate the need to move around because of your RLS symptoms? Very severe How severe was your sleep disturbance due to your RLS symptoms? Severe How severe was your tiredness or sleepiness during the day due to your RLS symptoms? Severe How severe was your RLS as a whole? Severe Overall, how severe was the impact of your RLS symptoms on your ability to carry out your daily affairs, for example, carrying out a satisfactory family, home, social, school, or work? Severe How severe was your mood disturbance due to your RLS symptoms, for example, angry, depressed, sad, anxious, or irritable? Severe In the past week, Overall, how much relief of your RLS arm or leg discomfort did you get from moving around? No relief How often did you get RLS symptoms? Very often (6 to 7 days in 1 week) When you had RLS symptoms, how severe were they on average? Severe (3 to 8 hours per 24 hours) Score (range: 1 - 40) 34 (Very Severe) CPAP Compliance: Report date: 11/25/24 % total days used: 80% % days used > 4 hours: 73% Average hours per day used: 7h 59m Large leak: occasional AHI: 2.6 /hr Pressure settin cmH2O Equipment: DME Provider is Christy Uses a [employer] 11. PMH: Past Medical History: Diagnosis Date Asthma with [...] LDL below 100 07/15/2009 Per Lipid Taxonomy. 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 performed by Kenny Archibald DPM at [facility] ARTHROPLASTY KNEE TOTAL Right 05/2016 Dr Reynoso BX LYMPH NODE DEEP AXIL Left 04/07/2015 BIOPSY LYMPH NODE DEEP AXILLARY OPEN performed by Buffy Castro MD at OR [facility] CARPAL TUNNEL SURGERY 10/15/2009 NEUROPLASTY MEDIAN NERVE AT CARPAL TUNNEL performed [place] CHELSI DICKERSON [place] [facility] CARPAL TUN[place]EL SURGERY 01/07/2010 NEUROPLASTY MEDIAN NERVE AT CARPAL TUNNEL performed by CHELSI DICKERSON [place] [facility] COLONOSCOPY 12/09/2009 adenomatous polyps repeat 6 months [...] by Anselmo Sung MD at ENDOSCOPY [facility] COLONOSCOPY, DIAGNOSTIC (RECTUM) 03/21/2018 adenomatous polyp, diverticulosis, repeat 2 yrs/COLONOSCOPY FLEXIBLE PROXIMAL DIAGNOSTIC performed by Anselmo Sung MD at ENDOSCOPY [facility] COLONOSCOPY, DIAGNOSTIC (RECTUM) 01/15/2014 COLONOSCOPY FLEXIBLE PROXIMAL DIAGNOSTIC performed by Anselmo Sung MD at ENDOSCOPY [facility] COLONOSCOPY, DIAGNOSTIC (RECTUM) 11/16/2020 Hemorrhoids, diverticulosis sigmoid colon, multi polyps / biopsy benign adenomatous polyps / 1 yearrecall / COLONOSCOPY FLEXIBLE PROXIMAL DIAGNOSTIC performed by Anselmo Sung MD at ENDOSCOPY [facility] COLONOSCOPY, DIAGNOSTIC (RECTUM) 09/18/2023 multiple small and large mouthed diverticula/biopsies show adenomatous polyps/recall 10 years/COLONOSCOPY FLEXIBLE PROXIMAL DIAGNOSTIC performed by Anselmo Sung MD at ENDOSCOPY [facility] COLONOSCOPY/REMOVE LESION 03/16/2009 repeat 6 months CORONARY ANGIOGRAPHY W/LEFT HEART CATH 11/12/2023 CORONARY ANGIOGRAPHY W/LEFT HEART CATH performed by Huey Barrera MD at [place] DILATION AND CURETTAGE (D&C) 1996 D&C ENDO DECOMPRESS SPINAL CORD W/LAMINOTOMY, CERVICAL 07/13/2010 LAMINECTOMY DECOMPRESSION SPINAL CORD POSTERIOR CERVICAL performed by CHELSI DICKERSON [place] [facility] IDENTIFY SENTINEL NODE, RADIOACTIVE TRACER Left 04/07/2015 INJECTION PROCEDURE FOR IDENTIFICATION SENTINEL NODE performed by Buffy Castro MD at [facility] KNEE ARTHROSCOPY, DIAGNOSTIC 12/2012 Left knee [...] by Buffy Castro MD at OR [facility] NECK SPINE FUSION (CERV, BELOW C2) 08/21/2008 ARTHRODESIS SPINE ANTERIOR CERVICAL performed by CHELSI DICKERSON [place] [facility] NECK SPINE FUSION (CERV, BELOW C2) 07/13/2010 ARTHRODESIS SPINE POSTERIOR CERVICAL performed by CHELSI DICKERSON [place] [facility] RADIATION THERAPY MANAGEMENT Left 07/10/2015 REMOVE NECK SPINE LAMINA, 1-2 SEGS 07/13/2010 LAMINECTOMY POSTERIOR CERVICAL ONE OR TWO VERTEBRAL SEGMENTS performed by CHELSI DICKERSON [place] [facility] SENTINEL LYMPH NODE BIOPSY PERFORMED Left 04/07/2015 SPINE SEG FIX, POST, 3-6 SEG, INSERT 07/13/2010 POSTERIOR SPINE SEGMENTAL INSTRUMENTATION 3 TO 6 PSF performed by CHELSI DICKERSON [place] [facility] ALLERGIES: Review of patient's allergies indicates: Allergen Reactions Alendronate Sodium Burning sensation and difficulty breathing Proton Pump Inhibitors Hives nexium MEDS: Current Outpatient Medications Medication Sig Dispense Refill LORazepam 0.5 MG Oral Tablet (Ativan) Take 1 Tablet by mouth every 6 hours as needed. Vitamin B-12 1000 MCG Sublingual Tablet Sublingual Place 1 Tablet under the tongue in the morning. Vitamin D-3 25 MCG (1000 UT) Oral Capsule Take 1 Capsule by mouth in the morning. Anoro Ellipta 62.5-25 MCG/ACT Inhalation Aerosol Powder Breath Activated (umeclidinium-vilanterol) Inhale 1 Puff by mouth in the morning. 90 Each 1 Ipratropium-Albuterol 0.5-2.5 (3) MG/3ML Inhalation Solution (Duoneb) Inhale 1 vial via nebulizer in the morning and 1 vial at noon and 1 vial in the evening and 1 vial before bedtime. 360 mL 1 Warfarin Sodium 5 MG Oral Tablet (Coumadin) TAKE ONE TO ONE AND ONE-HALF TABLETS BY MOUTH EVERY DAYAS DIRECTED BY COUMADIN CLINIC 135 Tablet 3 Furosemide 20 MG Oral Tablet (Lasix) Take 1 Tablet by mouth in the morning. 90 Tablet 0 Potassium Chloride ER 10 MEQ Oral Capsule Extended Release Take 1 Capsule by mouth in the morning. (Patient taking differently: Take 2 Capsules by mouth in the morning. Every Sunday, Sunday, and Sunday.) 90 Capsule 0 Accu-Chek Adri Plus w/Device Kit Use to check bg 1 Kit 1 Accu-Chek Guide Test In Vitro Strip (Glucose Blood) Use to test bg up to 4 times a day 800 Strip 1 Famotidine 40 MG Oral Tablet (Pepcid) Take 1 Tablet by mouth in the morning. 30 Tablet 1 metFORMIN HCl 1000 MG Oral Tablet (Glucophage) TAKE ONE TABLET BY MOUTH TWICE A DAY WITH FOOD 200 Tablet 3 Isosorbide Mononitrate ER 60 MG Oral Tablet Extended Release 24 Hour (Imdur) TAKE ONE TABLET BY MOUTH EVERY MORNING 90 Tablet 3 Metoprolol Succinate ER 50 MG Oral Tablet Extended Release 24 Hour (toPROL XL) TAKE ONE TABLET BY MOUTH TWICE A DAY (Patient taking differently: 12.5 mg once daily, dose decreased [facility] admit 09/26/24)180 Tablet 3 Aspirin 81 MG Oral Tablet Delayed Release Take 1 Tablet by mouth in the morning. Rosuvastatin Calcium 20 MG Oral Tablet (Crestor) Take 1 Tablet by mouth in the morning. 90 Tablet 3 Accu-Chek Guide Me w/Device Kit Use as directed. Accu-Chek Softclix Lancets Use to test blood glucose 4 times daily. DX: E11.9 400 Each 3 Fluticasone Propionate 50 MCG/ACT Nasal Suspension (Flonase) Administer 2 Sprays into each nostril in the morning. 16 g 1 Multiple Vitamin (DAILY VALUE MULTIVITAMIN) Tablet Take 1 Tablet by mouth in the morning. Compressor Nebulizer Inhale via nebulizer. Use as directed. 1 Each 1 Nebulizer/Tubing/Mouthpiece Kit Use to nebulize medication 1 Kit 1 Albuterol Sulfate HFA 108 (90 Base) MCG/ACT Inhalation Aerosol Solution Inhale 2 puffs by mouth 4 times daily 20.1 g 2 Nitroglycerin 0.3 MG Sublingual Tablet Sublingual (Nitrostat) PLACE 1 TABLET UNDER THE TONGUE EVERY5 MINUTES UP TO 3 DOSES NEEDED FOR CHEST PAIN. IF NO RELIEF CALL 911 OR GO TO ER 25 Tablet 11 Insulin Aspart 100 UNIT/ML Injection Solution (NovoLOG) Inject under the skin. 310 units in pump. Getting from [facility] (Patient not taking: Reported on 11/17/2024) Current Facility-Administered Medications Medication Dose Route Frequency Provider Last Rate Last Admin Albuterol Sulfate (Proventil) (2.5 MG/3ML) 0.083% inhalation solution 2.5 mg 2.5 mg Nebulizer PRN 2.5 mg at 09/15/24 0823 She had previously taken gabapentin; unsure why it was stopped. Per chart review, it had made her feel loopy and did not help the neuropathy. She had taken pregabalin for years, stopped during hospitalization 09/26 - 10/08/2024 due to CHF. Social hx: Tobacco use: none currently Alcohol use: none Drug use: none PE: VITAL SIGNS: Filed Vitals: 11/26/24 1008 BP: 120/60 Pulse: 76 Resp: 16 Temp: 36.6 °C (97.9 °F) TempSrc: Tympanic SpO2: 91% Weight: 92.1 kg (203 lb) Height: 1.651 m (5' 5") Body mass index is 33.78 kg/m². GEN: Seated in wheelchair, obese, NAD ORAL: Oral mucous membranes moist OP: NSoft palate normal Mallampati IV NECK: Circumference 16.25" RESP: Unlabored respirations Breath sounds clear, no wheezes or rales CVS: Regular rate and rhythm + systolic murmur EXT: Trace pretibial edema NEURO: Speech clear and appropriate ASSESSMENT/PLAN: Chronic respiratory failure with related hospitalizations Presumed obstructive sleep apnea - using CPAP regularly, with benefit. - encourage continued use of CPAP with all sleep. - good efficacy of therapy (normal residual AHI; sleepiness is improved though not resolved; and subjectively she seems to be breathing and feeling better since starting CPAP); continue PAP at current setting 8 cmH2O - DME: [facility] - Routine cleaning and change of supplies as needed. - Continue to avoid driving when feeling sleepy/drowsy. - nocturnal oximetry on CPAP 8 cwp & RA. MyG with results. She does not currently have home oxygen. Discussed that if oxygen is needed via CPAP, would likely need a CPAP titration study to qualify for insurance purposes. Restless legs-like sxs - suspect primarily neuropathy; note that she is off of neuropathy medication now, as pregabalin was stopped in the hospital. Follow up with PCP for this. - check iron screen with ferritin; MyG with results - discussed evening leg stretching, warm vs cool, pressure Follow Up: Return in about 4 months (around 03/28/2025) for f/u CPAP ([employer]), insomnia. | For: f/u CPAP ([employer]), insomnia | Check-out note: Please check in for lab Please schedule soon f/u appt with Pulmonary. Lea Rausch DO documented in this encounter Nursing Notes * Qing MarinJOSE - 11/26/2024 10:14 AM EDT Chief Complaint Patient presents with NEW PATIENT Sleep Apnea No PSG Hx Neck: 16.25" Marshall Sleepiness Scale Question 11/25/2024 12:23 PM EDT - Filed by Patient What is the chance you will doze off in the following situation? Sitting and reading High chance of dozing Watching TV High chance of dozing Sitting inactive in a public place, such as a theater or meeting Moderate chance of dozing As a passenger in a car for an hour without a break High chance of dozing Lying down to rest in the afternoon when circumstances permit Moderate chance of dozing When sitting and talking to someone Slight chance of dozing When sitting quietly after lunch without alcohol Moderate chance of dozing In a car, while stopped for a few minutes in traffic Slight chance of dozing Score (range: 0 - 24) 17 Functional Outcomes Of Sleep Question 11/25/2024 12:27 PM EDT - Filed by Patient Please complete the following questions. Do you have difficulty concentrating because you are sleepy or tired? Yes, extreme Do you have difficulty remembering things because you are sleepy or tired? Yes, extreme Do you have difficulty operating a motor vehicle for short distances (less than 100 miles) because you become sleepy? Yes, extreme Do you have difficulty operating a motor vehicle for long distances (more than 100 miles) because you become sleepy? Yes, extreme Do you have difficulty visiting family or friends in their home because you become sleepy or tired?Yes, moderate Has your relationship with family, friends, or work colleagues been affected because you are sleepyor tired? Yes, moderate Do you have difficulty watching a movie or video because you become sleepy or tired? Yes, moderate Do you have difficulty being as active as you want to be in the evening because you are tired or sleepy? Yes, moderate Do you have difficulty being as active as you want to be in the morning because you are tired or sleepy? Yes, extreme Has your mood been affected because you are sleepy or tired? Yes, extreme Score (range: 10 - 40) 14 Restless Leg Syndrome Rating Scale Question 11/25/2024 12:30 PM EDT - Filed by Patient Please complete the following questions. In the past week... Overall, how would you rate the RLS discomfort in your legs or arms? Very severe Overall, how would you rate the need to move around because of your RLS symptoms? Very severe How severe was your sleep disturbance due to your RLS symptoms? Severe How severe was your tiredness or sleepiness during the day due to your RLS symptoms? Severe How severe was your RLS as a whole? Severe Overall, how severe was the impact of your RLS symptoms on your ability to carry out your daily affairs, for example, carrying out a satisfactory family, home, social, school, or work? Severe How severe was your mood disturbance due to your RLS symptoms, for example, angry, depressed, sad, anxious, or irritable? Severe In the past week, Overall, how much relief of your RLS arm or leg discomfort did you get from moving around? No relief How often did you get RLS symptoms? Very often (6 to 7 days in 1 week) When you had RLS symptoms, how severe were they on average? Severe (3 to 8 hours per 24 hours) Score (range: 1 - 40) 34 (Very Severe) documented in this encounter Plan of Treatment Upcoming Encounters Date Type Department Care Team (Late st Contact Info) Description 12/03/2024 2:10 PM EDT Anticoagulation Pharmacy, [facility] [address] [place] [place] [phone] [facility] [address] [place] [address] [address] 12/03/2024 2:20 PM EDT Office Visit Pharmacy, [facility] [address] [place] [phone] [facility] [address] [facility] [address] 12/08/2024 10:00 AM EDT [facility] Visit [facility] [address] [place] [address] Rosalind Smith, RN [address] [place] [address] 02/18/2025 12:00 PM EDT Office Visit [facility] [address] [facility] [phone] Natalia Heller PA-C [address] [address] 04/20/2025 8:40 AM EDT Office Visit Hepatology, [facility] [address] [place] [phone] Apple Walker, DO [address] [place] [address] 08/17/2025 11:00 AM EST Office Visit Sleep Disorders [facility] [address] [place] [phone] Lea Rausch, DO [address] [place] [address] Scheduled Procedures Name Priority Associated Diagnoses Date/Ti [...] D LEVEL ONCE IN A LIFETIME-USE SMARTSET# 66899 Completed 05/09/2024, 06/18/2020, 07/25/2019, Additional history exists [...] encounter Medical Devices Implanted Type 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 Supervisor Laboratory Animal Facility Device Identifier Shelf Expiration Date Model / Serial / Lot Graft Cervical [id number] [id number] - [id number] Implanted:Qt y: 2 on 08/21/2008 [place] [facility] Tissue - Human Spine Cervical [employer] [id number] / / Screw Spine 14mm [id number] - [id number] Implanted:Qt y: 2 on 08[facility]21/[facility] [place] Spine Cervical CARSON [employer] CARSON DEPUY 8-50-014 / / Depuy [place] 14 Mm Sd Con Scr Implanted:Qt y: 2 on 08/21/2008 [place] [facility] [place] Spine Cervical CARSON [employer] CARSON DEPUY 8-60-014 / / Description:Depuy skyline 14 mm SD con SCR 34 Mm Plate Implanted:Qt y: 1 on 08/21/2008 [place] [facility] [place] Spine Cervical 8034 / / Description:34 mm Depuy plat e 14 Mm Variable Rescue Implanted:Qt y: 2 on 08/21/2008 [place] [facility] [place] Spine Cervical 854-014 / / Description:14 mm variable r escue Screw 3.5x14 Mntr Fa [id number] - [id number] Implanted:Qt y: 10 on 07/13/2010 [place] [facility] [place]: Spine Cervical JNJ : ETHICON CARDIOVATIONS [id number] / / Devaughn 3.5l035lf [id number] - [id number] Implanted:Qt y: 1 on 07/13/2010 [place] [facility] [place] Spine Cervical JNJ : ETHICON CARDIOVATIONS [id number] / / Screw Inner Mntr [id number] - [id number] Implanted:Qt y: 8 on 07/13/2010 [place] [facility] [place]: Spine Cervical JNJ : ETHICON CARDIOVATIONS [id number] / / Nut Outer Xcon [id number] - [id number] Implanted:Qt y: 2 on 07/13/2010 [place] [facility] [place] Spine Cervical JNJ : ETHICON CARDIOVATIONS [id number] / / Screw Inner Xcon [id number] - [id number] Implanted:Qt y: 2 on 07/13/2010 [place] [facility] [place]: Spine Cervical JNJ : ETHICON CARDIOVATIONS [id number] / / Plate 35mm Xcon [id number] - [id number] Implanted:Qt y: 1 on 07/13/2010 [place] [facility] [place]: Spine Cervical JNJ : ETHICON CARDIOVATIONS [id number] / / documented as of this encounter Procedures Procedure Name Priority Date/Time Associated Diagnosis Comments IRON SCREEN, INCLUDING TIBC Routine 11/26/2024 11:21 AM EDT Chronic respiratory failure, unspecified whether with hypoxia or hypercapnia (HCC) Sleep apnea, unspecified type COPD, moderate (HCC) Chronic diastolic congestive heart failure (HCC) Atrial fibrillation with rapid ventricular response (HCC) Disorder of iron metabolism, unspecified FERRITIN Routine 11/26/2024 11:21 AM EDT Chronic respiratory failure, unspecified whether with hypoxia or hypercapnia (HCC) Sleep apnea, unspecified type COPD, moderate (HCC) Chronic diastolic congestive heart failure (HCC) Atrial fibrillation with rapid ventricular response (HCC) Disorder of iron metabolism, unspecified documented in this encounter Results * FERRITIN (11/26/2024 11:21 AM EDT) Ferritin 61 13 - 150 ng/mL 11/26/2024 10:04 PM EDT [facility] [place] Comment:Postmenopausal women have higher ferritin levels than pre-menopausal women. The above reference interval is based on pre-menopausal women. Blood Venous blood specimen / Unknown Venipuncture / Unknown 11/26/2024 11:21 AM EDT 11/26/2024 11:21 AM EDT us Lea Rausch DO LAB BLOOD ORDERABLES F inal Result Performing Organization Address City/[facility]/ZIP Co de Phone Number [facility] [place] [address] [place] [address] * (ABNORMAL) IRON SCREEN, INCLUDING TIBC (11/26/2024 11:21 AM EDT) Iron 25(L) 33 - 151 ug/dL 11/26/2024 9:38 PM EDT [facility] Iron Binding Capacity 397 250 - 425 ug/dL 11/26/2024 9:38 PM EDT [facility] Transferrin Saturation Percent 6(L) 15 - 55 % 11/26/2024 9:38 PM EDT [facility] Blood Venous blood specimen / Unknown Venipuncture / Unknown 11/26/2024 11:21 AM EDT 11/26/2024 11:21 AM EDT [employer] LAB BLOOD ORDERABLES F inal Result Performing Organization Address [facility] Co de Phone Number [facility] [place] [address] [place] [address] documented in this encounter Visit Diagnoses Diagnosis COPD, moderate (HCC)- Primary Chronic airway obstruction, not elsewhere classified Chronic atrial fibrillation (HCC) Atrial fibrillation Coronary artery disease of [place] artery of [place] heart with stable angina pectoris (HCC) DM [...] diastolic heart failure Coronary artery disease of [place] artery of [place] heart with stable angina pectoris (HCC) Chronic atrial fibrillation (HCC) Atrial fibrillation Dyslipidemia, goal LDL below 100 Other and unspecified hyperlipidemia senior care current use of anticoagulant therapy SOB (shortness [...] with medical treatment, presenting hazards to health Chronic respiratory failure, unspecified whether with hypoxia or hypercapnia (HCC)- Primary Sleep apnea, unspecified type COPD, moderate (HCC) Chronic airway obstruction, not elsewhere classified Chronic diastolic congestive heart failure (HCC) Chronic diastolic heart failure Atrial fibrillation with rapid ventricular response (HCC) Atrial fibrillation Disorder of iron metabolism, unspecified Nocturnal hypoxemia Hypoxemia documented in this encounter Advance Directives * [...] the patient have Health Care Power of License Registration Examiner? No * Full Code Date Activated Date [...] Power of Attor kim? No Care Teams Sustainability Director Relationship Specialty Start Date End Date Natalia Heller PA-C [address] [address] PCP - General Physician Manager Customs 08/28/24 documented as of this encounter
--- OUTSIDE RECORDS SUMMARY | 2024-12-10 16:44 | External Medical Summary | Summary of Care ---
Author Name Unknown Organization [facility] Address [address] [facility] [place] [address] Phone [phone] Care Team Providers Care Healthcare Financial Analyst Name Role Phone Natalia Heller PA-C Primary Care Provider +1 [phone] Reason for Visit * Reason Onset Date Comments Other 11/28/2024 Encounter Details Date Type Department Care Team (Late st Contact Info) Description 11/28/2024 Telephone [facility] [address] [place] [place] [address] Natalia Heller PA-C [address] [facility] [place] [address] Other Allergies Active Allergy Reactions Criticality Noted Date Comments Alendronate Sodium 06/24/2012 Burning sensation and difficulty breathing Proton Pump Inhibitors Hives 02/20/2002 nexium documented as of this encounter (statuses as of 11/28/2024) Medications Multiple Vitamin (DAILY VALUE MULTIVITAMIN) Tablet [...] disorder ([facility]) Use as directed. 4 Active Accu-Chek Softclix [...] skin. 310 units in pump. Getting from [employer] PAP Active Aspirin 81 MG Oral Tablet Delayed Release Take 1 Tablet by mouth in the morning. 4 Active Metoprolol Succinate ER 50 MG Oral Tablet Extended Release 24 Hour (toPROL XL) TAKE ONE TABLET BY MOUTH TWICE A DAY 180 Tablet 3 05/09/2024 8:51 AM EDT 4 025 Active Additional Information Patient taking differently: 12.5 mg once daily, dose decreased [facility] admit 09/26/24, Reported on 11/26/2024 Isosorbide Mononitrate ER 60 MG Oral Tablet Extended Release 24 Hour (Imdur)Indication s:HTN, goal below 130/80,Coronary artery disease involving [place] coronary artery of [place] heart without angina pectoris TAKE ONE TABLET [...] Tablet Sublingual (Nitrostat)Indica tions:Coronary artery disease of [place] artery of [place] heart with stable angina pectoris (HCC) PLACE [...] Oral Tablet (Lasix)Indication s:Coronary artery disease of [place] artery of [place] heart with stable angina pectoris (HCC) Take 1 Tablet by mouth in the morning. 90 Tablet 5 Active Potassium Chloride ER 10 MEQ Oral Capsule Extended ReleaseIndication s:Coronary artery disease of [place] artery of [place] heart with stable angina pectoris (HCC) Take [...] Warfarin Sodium 5 MG Oral Tablet (Coumadin)Indicat ions:terminologist current use of anticoagulant therapy,Deep vein thrombosis [...] as of this encounter (statuses as of 11/28/2024) Active Problems Problem Noted Date Diagnosed Date [...] artery disease of n ative artery of [place] heart with stable angina pectoris 12/08/2020 Assessment [...] CARDIOLOGY REFERRAL OP Cervical spinal stenosis 08/21/2008 terminologist current use of anticoagulant therapy 0 05/03/2005 Assessment & Plan (10/14/2024 1:10 PM EDT): Orders: CARDIOLOGY REFERRAL OP Warfarin Sodium 5 MG Oral Tablet (Coumadin); TAKE ONE TABLET TO ONE AND ONE-HALF TABLET BY MOUTH EVERY DAY DIRECTED BY [facility] documented as of this encounter (statuses as of 11/28/2024) Resolved Problems Problem Noted Date Diagnosed Date [...] as of this encounter (statuses as of 11/28/2024) Immunizations Name Administration Dates Next Due COVID-19 [...] Not on file 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 Not on f ile Not on file Not on file documented as of this encounter Functional Status * Are you deaf or do you have serious difficulty hearing? Answer Date of Assessment Author No 05/02/2019 3:21 PM Selin Park, RN * Are you blind or do [...] encounter Miscellaneous Notes * Telephone Encounter - Kassie Hernadez TECH - 11/28/2024 3:36 PM EDT [employer] calling regarding a reservoir (pump supply) for pt's infusion set (780 g or 770 g). Goingto resend fax to 's office. Thank you, Kassie Hernadez Cloth Cutting Machine Operator [facility] 11/28/2024, 3:37 PM documented in this encounter Plan of Treatment Upcoming Encounters Date Type Department Care Team (Late st Contact Info) Description 12/03/2024 2:10 PM EDT Anticoagulation Pharmacy, [address] [phone] [facility] [address] [facility] [place] [address] 12/03/2024 2:20 PM EDT Office Visit Pharmacy, [address] [phone] [facility] [address] [facility] [place] [address] 12/08/2024 10:00 AM EDT Home Visit [place] at Home, [facility] [address] [place] [address] Rosalind Smith, RN [address] [place] [phone] 02/18/2025 12:00 PM EDT Office Visit Family Practice, [place] [address] [phone] Natalia Heller PA-C [address] [address] 04/20/2025 8:40 AM EDT Office Visit Hepatology, [facility] [address] [place] [phone] Apple Walker, DO [address] [place] [phone] 08/17/2025 11:00 AM EST Office Visit Sleep Disorders Ctr [facility] [address] [place] [phone] Lea Rausch, DO [address] [place] [phone] Scheduled Procedures Name Priority Associated Diagnoses Date/Ti [...] D LEVEL ONCE IN A LIFETIME-USE SMARTSET# 04151 Completed 05/09/2024, 06/18/2020, 07/25/2019, Additional history exists [...] this encounter Medical Devices Implanted Type Area Video Network Engineer Device Identifier Shelf Expiration Date Model / Serial / Lot Graft Cervical 6x8 [id number] - [id number] Implanted:Qt y: 2 on [place] [facility] [place] - Human Spine Cervical [employer] [id number] / / Screw Spine 14mm 50-014 - [id number] Implanted:Qt y: 2 on [place]/21/2008 [place] [facility] [place] Spine Cervical CARSON & CARSON DEPUY 1868-50-014 / / Depuy [place] 14 Mm Sd Con Scr Implanted:Qt y: 2 on 08/21/2008 [place] [facility] [place] Spine Cervical [employer] CARSON DEPUY 1868-60-014 / / Description:Depuy skyline 14 mm SD con SCR 34 Mm Plate Implanted:Qt y: 1 on 08/21/2008 [place] [facility] [place]: Spine Cervical 034 / / Description:34 mm Depuy plat e 14 Mm Variable Rescue Implanted:Qt y: 2 on 08/21/2008 [place] [facility] [place] Spine Cervical 54-014 / / Description:14 mm variable r escue Screw 3.5x14 Mntr Fa [id number] - [id number] Implanted:Qt y: 10 on 07/13/2010 [place] [facility] [place] Spine Cervical JNJ : ETHICON CARDIOVATIONS [id number] / / Devaughn [id number] - [id number] Implanted:Qt y: 1 on 07/13/2010 [place] [facility] [place] Spine Cervical JNJ : ETHICON CARDIOVATIONS [id number] / / Screw Inner Mntr [id number] - [id number] Implanted:Qt y: 8 on 07/13/2010 [place] [facility] [place] Spine Cervical JNJ : ETHICON CARDIOVATIONS [id number] / / Nut Outer Xcon [id number] - [id number] Implanted:Qt y: 2 on 07/13/2010 [place] [facility] [place]: Spine Cervical JNJ : ETHICON CARDIOVATIONS [id number] / / Screw Inner Xcon [id number] - [id number] Implanted:Qt y: 2 on 07/13/2010 [place] [facility] [place]: Spine Cervical JNJ : ETHICON CARDIOVATIONS [id number] / / Plate 35mm Xcon [id number] - [id number] Implanted:Qt y: 1 on 07/13/2010 [place] [facility] [place]: Spine Cervical JNJ : ETHICON CARDIOVATIONS [id number] / / documented as of this encounter [...] the patient have Health Care Power of Development Lead? No * Full Code Date Activated [...] Power of Attor kim? No Care Teams Healthcare Financial Analyst Relationship Specialty Start Date End Date Natalia Heller PA-C [address] [address] PCP - General Physician Security Chief Museum 08/28/24 documented as of this encounter
--- OUTSIDE RECORDS SUMMARY | 2024-12-10 16:44 | External Medical Summary | Summary of Care ---
Author Name Unknown Organization [facility] Address [address] [facility] [place] [address] Phone [phone] Care Team Providers Care Environmental Law Professor Name Role Phone Natalia Heller PA-C Primary Care Provider +1 -[phone] Encounter Details Date Type Department Care Team (Late st Contact Info) Description 11/17/2024 11:30 AM EDT Home Visit [place] at Home, [facility] [address] [place] [address] Rosalind Smith, RN [address] [place] [address] Allergies Active Allergy Reactions Criticality Noted Date [...] long-term current use of insulin ([facility]),DM (diabetes mellitus) type II, controlled, with peripheral vascular disorder ([facility]) Use to test blood glucose 4 times [...] skin. 310 units in pump. Getting from [employer] PAP Active Aspirin 81 MG Oral Tablet [...] daily, dose decreased [facility] admit 09/26/24, Reported on 11/17/2024 Isosorbide Mononitrate ER 60 MG Oral Tablet Extended Release 24 Hour (Imdur)Indication s:HTN, goal below 130/80,Coronary artery disease involving [place] [...] Tablet Sublingual (Nitrostat)Indica tions:Coronary artery disease of [place] artery of [place] [...] Oral Tablet (Lasix)Indication s:Coronary artery disease of [place] artery of [place] heart with stable angina pectoris (HCC) Take 1 Tablet by mouth in the morning. 90 Tablet 10/10/19 25 Active Potassium Chloride ER 10 MEQ Oral Capsule Extended ReleaseIndication s:Coronary artery disease of [place] artery of [place] heart with stable angina pectoris (HCC) Take [...] Sodium 5 MG Oral Tablet (Coumadin)Indicat ions:senior living current use of anticoagulant therapy,Deep vein [...] 1 vial before bedtime. 360 mL 1 7:02 AM EDT 10/15/19 25 Active Compressor [...] Capsule by mouth in the morning. Active Vitamin B12 500 MCG Oral Tablet Take by mouth daily. 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 Not on file Not on file documented as of this encounter Last Filed Vital Signs Vital Sign Reading Time Taken Comments Blood Pressure 118/62 11/17/2024 12:24 PM EDT Pulse 87 11/17/2024 12:24 PM EDT Temperature 36.3 °C (97.3 °F) 11/17/2024 12:24 PM E DT Respiratory Rate 18 11/17/2024 12:24 PM EDT Oxygen Saturation 94% 11/17/2024 12:24 PM EDT Inhaled Oxygen Concentration - - [...] Progress Notes * Rosalind Smith RN - 11/17/2024 11:12 AM EDT Current Concerns: Pt seen for ALBARO visit Admitted to [facility] 10/21 - 10/29/24 for Sepsis w/ DKA, Ecoli bacteremia UTI Transferred to [facility] for further rehab Discharged home on 11/14/24 Has [facility] home health for SN, PT, OT Ordered CPAP and pt is using Has f/u with PCP on 11/19 Pt came home with insuline glargine 70 units daily ordered and TID insuline aspart but she does nothave this in the home and put the insulin pump back on the day after she came home without recommendations to do so. She does not have insuline from [facility] in the home. She does have scripts in the home and aware Teams message sent to [facility] as she is scheduled to reach out to pt today - she is aware of issue She reports she is having trouble sleeping since being home [facility] was giving her something to help her sleep Has Lorazepam ordered and advised to try this at bedtime to see if that will help her sleep Physical Exam: Physical Exam Constitutional: General: She [...] - at baseline). Cardiovascular: Negative. Gastrointestinal: Negative. Musculoskeletal: Positive for gait problem. Skin: Negative. Psychiatric/Behavioral: Positive for sleep disturbance. Care Plan Goal Progress: Orders Placed: No orders of the defined types were placed in this encounter. Medications Given: Care Gaps: Care Gaps Care gaps closed this contact: Education;Medications;Plan of Care (POC) (11/17/241226) Type of education: Clinical/disease;Educated on the benefits of connecting with their PCP ([phone]) Type of medication care gap: Medication adherence (11/17/241226) Type of plan of care (POC) care gap: Adjustment of plan of care (POC) and/or Integrated Care Plan (ICP);Education and review of exacerbation plan (11/17/241226) documented in this encounter Plan of Treatment Upcoming Encounters Date Type Department Care Team (Late st Contact Info) Description 11/19/2024 11:20 AM EDT Office Visit [facility] [address] [phone] Alfa Jaramillo MD [address] [address] 11/19/2024 11:50 AM EDT Anticoagulation Pharmacy, [address] [phone] [facility] [address] [place] [address] 11/26/2024 10:00 AM EDT Office Visit Sleep Disorders Ctr [facility] [address] [place] [phone] Lea Rausch DO [address] [place] [address] 12/03/2024 2:10 PM EDT Anticoagulation Pharmacy, [address] [phone] [facility] [address] [place] [address] 12/03/2024 2:20 PM EDT Office Visit Pharmacy, [facility] [facility] [place] [phone] [facility] [address] [place] [facility] [place] [address] 12/08/2024 10:00 AM EDT Home Visit [place] at [place], [facility] [address] [place] [address] Rosalind Smith, RN [address] [place] [address] 02/18/2025 12:00 PM EDT [place] [address] [place] [phone] Natalia Heller PA-C [address] [place] [address] 04/20/2025 8:40 AM EDT Office Visit Hepatology, [facility] [address] [place] [phone] Apple Walker DO [address] [place] [address] Scheduled Procedures Name Priority Associated Diagnoses Date/Ti [...] D LEVEL ONCE IN A LIFETIME-USE SMARTSET# 31999 Completed 05/09/2024, 06/18/2020, 07/25/2019, Additional history exists [...] this encounter Medical Devices Implanted Type Area Nailing Machine Operator Device Identifier Shelf Expiration Date Model / Serial / Lot Graft Cervical 6x8 [id number] - [id number] Implanted:Qt y: 2 on 08/21/2008 at [place] [facility] [place] Tissue - Human Spine Cervical [employer] Co [id number] / / Screw Spine 14mm 1868-50-014 - [id number] Implanted:Qt y: 2 on 08/21/2008 at [place] [facility] [place] N/A: Spine Cervical CARSON & CARSON DEPUY 50014 / / Depuy [place] 14 Mm Sd Con Scr Implanted:Qt y: 2 on 08/21/2008 at [place] [facility] [place] [place] N/A: Spine Cervical CAR[employer] CARSON DEPUY 60014 / / Description:Depuy skyline 14 mm SD con SCR 34 Mm Plate Implanted:Qt y: 1 on 08/21/2008 at [place] [facility] [place] N/A: Spine Cervical / / Description:34 mm Depuy plat e 14 Mm Variable Rescue Implanted:Qt y: 2 on 08/21/2008 at [place] [facility] [place] [place] N/A: Spine Cervical / / Description:14 mm variable r escue Screw 3.5x14 Mntr Fa [id number] - [id number] Implanted:Qt y: 10 on 07/13/2010 at [place] [facility] [place] N/A: Spine Cervical JNJ : ETHICON CARDIOVATIONS [id number] / / Devaughn [id number] - [id number] Implanted:Qt y: 1 on 07/13/2010 at [place] [facility] [place] [place] N/A: Spine Cervical JNJ : ETHICON CARDIOVATIONS [id number] / / Screw Inner Mntr [id number] - [id number] Implanted:Qt y: 8 on 07/13/2010 at [place] [facility] [place] N/A: Spine Cervical JNJ : ETHICON CARDIOVATIONS [id number] / / Nut Outer Xcon [id number] - [id number] Implanted:Qt y: 2 on 07/13/2010 at [place] [facility] [place] [place] N/A: Spine Cervical JNJ : ETHICON CARDIOVATIONS [id number] / / Screw Inner Xcon [id number] - [id number] Implanted:Qt y: 2 on 07/13/2010 at [place] [facility] [place] [place] N/A: Spine Cervical JNJ : ETHICON CARDIOVATIONS [id number] / / Plate 35mm Xcon [id number] - [id number] Implanted:Qt y: 1 on 07/13/2010 at [place] [facility] [place] [place] N/A: Spine Cervical JNJ : ETHICON CARDIOVATIONS [id number] / / documented as of this encounter [...] patient have Health Care Power of It Help Desk Analyst? No * Full Code Date Activated [...] of Attor kim? No Care Teams Environmental Law Professor Relationship Specialty Start Date End Date Natalia Heller PA-C [address] [address] PCP - General Physician Development Intern 08/28/24 documented as of this encounter
--- OUTSIDE RECORDS SUMMARY | 2024-12-10 16:44 | External Medical Summary ---
Author Name Unknown Address Unknown Organization [id number]:LABORATORY [facility] [place] - [address] [facility] [address] Laboratory Report Ordering Provider Test Date Status DIANE,BLOOD 11/26/2024 11:21:57 Final Observation Date Value Abnormality Reference (Units ) Status Ferritin 11/26/2024 11:21:57 61 13-150 (ng /mL) Final Postmenopausal women have hi gher ferritin levels than pre-menopausal women. The above reference interval is based on pre-menopausal women. Performing Location LAB[facility]ATORY [facility] - [address] [place] [address]
--- OUTSIDE RECORDS SUMMARY | 2024-12-10 16:44 | External Medical Summary ---
Author Name Unknown Address Unknown Organization K01:[facility] [place] [address] [place] [address] Laboratory Report Ordering Provider Test Date Status CAITIE CONTRERAS 11/26/2024 11:21:57 Final Observation Date Value Abnormality Reference (Units ) Status Iron 11/26/2024 11:21:57 25 Below low normal 33-151 (ug/dL) Final Iron-binding capacity 11/26/2024 11:21:57 397 250-425 (ug/dL) Final Transferrin Sat % 11/26/2024 11:21:57 6 Below low normal 15-55 (%) Final Performing Location LABORATORY C - [address] [place] [address]
--- OUTSIDE RECORDS SUMMARY | 2024-12-10 16:44 | External Medical Summary | Summary of Care ---
Author Name Unknown Organization [facility] Address [address] [address] Phone [phone] Care Team Providers Care Cotton Presser Name Role Phone Natalia Heller PA-C Primary Care Provider +1 [phone] Reason for Visit * Reason Comments Outpatient Testing Encounter Details Date Type Department Care Team (Late st Contact Info) Description 11/26/2024 11:20 AM EDT Laboratory Laboratory, [facility] [address] [place] [phone] [facility] [address] [place] [address] Arrived Allergies Active Allergy Reactions Criticality Noted Date Comments Alendronate Sodium 06/24/2012 Burning sensation and difficulty breathing Proton Pump Inhibitors Hives 02/20/2002 nexium documented as of this encounter (statuses as of 11/26/2024) Medications Multiple Vitamin (DAILY VALUE MULTIVITAMIN) Tablet [...] vascular disorder ([facility]) Use to test blood glucose 4 [...] skin. 310 units in pump. Getting from [employer] PAP Active Aspirin 81 MG Oral Tablet Delayed Release Take 1 Tablet by mouth in the morning. 4 Active Metoprolol Succinate ER 50 MG Oral Tablet Extended Release 24 Hour (toPROL XL) TAKE ONE TABLET BY MOUTH TWICE A DAY 180 Tablet 3 05/09/2024 8:51 AM EDT 4 025 Active Additional Information Patient taking differently: 12.5 mg once daily, dose decreased [facility] admit 09/26/24, Reported on 11/26/2024 Isosorbide Mononitrate ER 60 MG Oral Tablet Extended Release 24 Hour (Imdur)Indication s:HTN, goal below 130/80,Coronary artery disease involving [place] coronary artery of [place] heart without angina pectoris TAKE ONE TABLET [...] Tablet Sublingual (Nitrostat)Indica tions:Coronary artery disease of [place] artery of [place] heart with stable angina pectoris (HCC) PLACE [...] Oral Tablet (Lasix)Indication s:Coronary artery disease of [place] artery of [place] heart with stable angina pectoris (HCC) Take 1 Tablet by mouth in the morning. 90 Tablet 5 Active Potassium Chloride ER 10 MEQ Oral Capsule Extended ReleaseIndication s:Coronary artery disease of [place] artery of [place] heart with stable angina pectoris (HCC) Take [...] Warfarin Sodium 5 MG Oral Tablet (Coumadin)Indicat ions:assisted current use of anticoagulant therapy,Deep vein thrombosis [...] as of this encounter (statuses as of 11/26/2024) Active Problems Problem Noted Date Diagnosed Date [...] artery disease of n ative artery of blue lake heart with stable angina pectoris 12/08/2020 Assessment [...] CARDIOLOGY REFERRAL OP Cervical spinal stenosis 08/21/2008 assisted current use of anticoagulant therapy 0 05/03/2005 Assessment & Plan (10/14/2024 1:10 PM EDT): Orders: CARDIOLOGY REFERRAL OP Warfarin Sodium 5 MG Oral Tablet (Coumadin); TAKE ONE TABLET TO ONE AND ONE-HALF TABLET BY MOUTH EVERY DAY DIRECTED BY COUMADIN CLINIC documented as of this encounter (statuses as of 11/26/2024) Resolved Problems Problem Noted Date Diagnosed Date [...] as of this encounter (statuses as of 11/26/2024) Immunizations Name Administration Dates Next Due COVID-19 [...] No 11/19/2023 Does the household have a [facility] source of income? 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 ile Not on file [...] Description 12/03/2024 2:10 PM EDT [facility] [address] [place] [address] [facility] [address] [place] [address] 12/03/2024 2:20 PM EDT [facility] [address] [place] [address] [facility] [address] [place] [address] 12/08/2024 10:00 AM EDT Home Visit ising at [facility] [address] [place] [address] Rosalind Smith RN [address] [place] [address] 02/18/2025 12:00 PM EDT Office Visit [facility], [place] [address] [place] [address] Natalia Heller PA-C [address] [place] [address] 04/20/2025 8:40 AM EDT Office Visit Hepatology, [facility] [address] [place] [phone] Apple Walker, DO [address] [place] [phone] 08/17/2025 11:00 AM EST Office Visit [facility] [address] [place] [phone] Lea Rausch, DO [address] [place] [phone] Scheduled Procedures Name Priority Associated Diagnoses Date/Ti [...] D LEVEL ONCE IN A LIFETIME-USE SMARTSET# 63081 Completed 05/09/2024, 06/18/2020, 07/25/2019, Additional history exists [...] this encounter Medical Devices Implanted Type Area Campus Rep Device Identifier Shelf Expiration Date Model / Serial / Lot Graft Cervical 6x8 [id number] - [id number] Implanted:Qt y: 2 on 08/21/2008 at [place] [facility] [place] - Human Spine Cervical Lifenet Co [id number] / / Screw Spine 14mm [id number] - [id number] Implanted:Qt y: 2 on 08/21/2008 at [place] [facility] [place] N/A: Spine Cervical CARSON [employer] CARSON DEPUY 50-014 / / Depuy [place] 14 Mm Sd Con Scr Implanted:Qt [...] variable r escue Screw 3.5x14 Mntr Fa [id number] - [id number] Implanted:Qt y: 10 on 07/13/2010 at [place] [facility] [place]/A: Spine Cervical JNJ : ETHICON CARDIOVATIONS [id number] / / Devaughn [id number] - [id number] Implanted:Qt y: 1 on 07/13/2010 at [place] [facility] [place] N/A: Spine Cervical JNJ : ETHICON CARDIOVATIONS [id number] / / Screw Inner Mntr [id number] - [id number] Implanted:Qt y: 8 on 07/13/2010 at [place] [facility] [place] N/A: Spine Cervical JNJ : ETHICON CARDIOVATIONS [id number] / / Nut Outer Xcon [id number] - [id number] Implanted:Qt y: 2 on 07/13/2010 at [place] [facility] [place] N/A: Spine Cervical JNJ : ETHICON CARDIOVATIONS [id number] / / Screw Inner Xcon [id number] - [id number] Implanted:Qt y: 2 on 07/13/2010 at [place] [facility] [place] N/A: Spine Cervical JNJ : ETHICON CARDIOVATIONS [id number] / / Plate 35mm Xcon [id number] - [id number] Implanted:Qt y: 1 on 07/13/2010 at [place] [facility] [place] N/A: Spine Cervical JNJ : ETHICON CARDIOVATIONS [id number] / / documented as of this encounter [...] the patient have Health Care Power of Associate Director Of Nursing? No * Full Code Date Activated Date [...] Power of Attor kim? No Care Teams Cotton Presser Relationship Specialty Start Date End Date Natalia Heller PA-C [address] [place] [address] PCP - General Physician Nuclear Weapons Mechanical Specialist 08/28/24 documented as of this encounter
--- OUTSIDE RECORDS SUMMARY | 2024-12-10 16:45 | External Medical Summary | Summary of Care ---
Author Name Unknown Organization [facility] Address [address] [facility] [place] [address] Phone [phone] Care Team Providers Care Audience Coordinator Name Role Phone Natalia Heller PA-C Primary Care Provider +1 [phone] Reason for Visit * Reason Onset Date Comments Health Maintenance 11/12/2024 Encounter Details Date Type Department Care Team (Late st Contact Info) Description 11/12/2024 Telephone [facility] [address] [place] [address] Natalia Heller PA-C [address] [place] [address] Health Maintenance Allergies Active Allergy Reactions Criticality Noted Date Comments Alendronate Sodium 06/24/2012 Burning sensation and difficulty breathing Proton Pump Inhibitors Hives 02/20/2002 nexium documented as of this encounter (statuses as of 11/12/2024) Medications Multiple Vitamin (DAILY VALUE MULTIVITAMIN) Tablet [...] disorder ([facility]) Use as directed. 4 Active [...] skin. 310 units in pump. Getting from [employer] PAP Active Aspirin 81 MG Oral Tablet Delayed Release Take 1 Tablet by mouth in the morning. 4 Active Metoprolol Succinate ER 50 MG Oral Tablet Extended Release 24 Hour (toPROL XL) TAKE ONE TABLET BY MOUTH TWICE A DAY 180 Tablet 3 05/09/2024 8:51 AM EDT 4 025 Active Additional Information Patient taking differently: 12.5 mg once daily, dose decreased [facility] admit 09/26/24, Reported on 10/14/2024 Isosorbide Mononitrate ER 60 MG Oral Tablet Extended Release 24 Hour (Imdur)Indication s:HTN, goal below 130/80,Coronary artery disease involving [place] coronary artery of [place] heart without angina pectoris TAKE ONE TABLET [...] Tablet Sublingual (Nitrostat)Indica tions:Coronary artery disease of [place] artery of [place] heart with stable angina pectoris (HCC) PLACE [...] Oral Tablet (Lasix)Indication s:Coronary artery disease of [place] artery of [place]yung heart with stable angina pectoris (HCC) Take 1 Tablet by mouth in the morning. 90 Tablet 5 Active Potassium Chloride ER 10 MEQ Oral Capsule Extended ReleaseIndication s:Coronary artery disease of [place]yung artery of curyung heart with stable angina pectoris (HCC) Take 1 Capsule by mouth in the morning. 90 Capsule 10/13/2024 7:59 AM EDT 5 Active Anoro Ellipta 62.5-25 MCG/ACT Inhalation Aerosol Powder Breath Activated (umeclidinium-iain anterol)Indicatio ns:COPD, moderate (HCC) Inhale 1 Puff by mouth in the morning. 90 Each 1 10/17/2024 7:02 AM EDT 5 Active Warfarin Sodium 5 MG Oral Tablet (Coumadin)Indicat ions:intermodal customer service current use of anticoagulant therapy,Deep [...] as of this encounter (statuses as of 11/12/2024) Active Problems Problem Noted Date Diagnosed Date [...] artery disease of n ative artery of curyung heart with stable angina pectoris 12/08/2020 Assessment [...] CARDIOLOGY REFERRAL OP Cervical spinal stenosis 08/21/2008 [facility] current use of anticoagulant therapy 0 05/03/2005 Assessment & Plan (10/14/2024 1:10 PM EDT): Orders: CARDIOLOGY REFERRAL OP Warfarin Sodium 5 MG Oral Tablet (Coumadin); TAKE ONE TABLET TO ONE AND ONE-HALF TABLET BY MOUTH EVERY DAY DIRECTED BY COUMADIN CLINIC documented as of this encounter (statuses as of 11/12/2024) Resolved Problems Problem Noted Date Diagnosed Date [...] as of this encounter (statuses as of 11/12/2024) Immunizations Name Administration Dates Next Due COVID-19 [...] Not on file 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 Answer Date of Assessment Author No 05/02/2019 3:21 PM EDSelin Summers, LO * Are you blind or do [...] 05/02/2019 3:21 PM EDT Selin Phelps, LO documented in this encounter Miscellaneous Notes * Telephone Encounter - Casi HammondJOSE - 11/12/2024 7:58 AM EDT Care Gaps Comprehensive Care Outreach Last Office/Telemedicine Visit: 10/14/2024 (in office), Visit date not found (telemedicine) Next Office Visit: 11/12/2024 Hemoglobin AIC Results: Lab Results Component Value Date/Time HEMOGLOBIN A1C 7.7 (H) 07/09/1996 11:15 AM HEMOGLOBIN A1C - [facility] 11.1 (H) 05/09/2024 09:11 AM HEMOGLOBIN A1C - [facility] 10.2 (H) 11/13/2023 04:31 AM HEMOGLOBIN A1C - [facility] 10.2 (H) 08/30/2023 10:08 AM HEMOGLOBIN A1C - [facility] 10.6 (H) 06/18/2020 09:03 AM HEMOGLOBIN A1C - [facility] 13.2 (H) 07/25/2019 09:28 AM HEMOGLOBIN A1C - [facility] 13.3 (H) 02/18/2019 02:17 PM HEMOGLOBIN A1C POCT - [facility] 11.2 (H) 05/09/2024 08:23 AM BP Readings from Last 1 Encounters: 10/14/24 89/47 Reviewed Health Maintenance below: Health Maintenance Topic Date Due *BISPHONATE OR OTHER ACCEPTABLE MEDICATION NEEDED FOR OSTEOPOROSIS (REFER TO SMARTSET #1146) Never done Adult Wellness Visit 03/27/2023 COVID-19 Vaccine ( - season) 2024 Zoster Vaccines (3 of 3) 08/06/2024 DTap/Tdap Vaccines (2 - Td or Tdap) 09/15/2024 HbA1c 11/07/2024 Diabetic Foot Exam 06/10/2025 (Originally 01/18/2022) Depression Monitoring 11/18/2024 DXA Scan 02/19/2025 Albumin/Creatinine Ratio 05/09/2025 GFR 05/09/2025 Diabetic Eye Exam 05/20/2025 Lung Cancer Screening 08/29/2025 O2 ASSESSMENT COMPLETED IN PAST YEAR FOR COPD 10/14/2025 VITAMIN D LEVEL ONCE IN A LIFETIME-USE SMARTSET# 55310 Completed Alpha-1 Antitrypsin Completed Influenza Vaccine (FLU shot) Completed Pneumococcal Vaccine: 50+ Years Completed Hepatitis B Vaccine Aged Out MENINGOCOCCAL (MENACTRA/MENVEO) Aged Out HPV (Gardasil) Vaccine Aged Out Meningitis B Vaccine (Bexsero/Trumemba) Aged Out RETIRED - COLONOSCOPY-EVERY 2 YRS AGES 18-100 Discontinued Colorectal Cancer Screening Discontinued Pcp today Care Gap Outreach Action Taken: Outreach not indicated documented in this encounter Plan of Treatment Upcoming Encounters Date Type Department Care Team (Late st Contact Info) Description 11/14/2024 5:10 PM EDT Antico[facility] Pharm[facility], [facility] [place] [phone] [facility] [address] [place], [place] [address] [phone] 11/17/2024 11:30 AM EDT Home Visit [facility] [address] [place] [address] Rosalind Smith, RN [address] [place] [address] 11/19/2024 11:20 AM EDT Office Visit Family Practice, [place] [place] [address] [place] [phone] Alfa Jaramillo MD [address] [facility] [place] [address] 02/18/2025 12:00 PM EDT Office Visit [facility], [place] [address] [place] [address] Natalia Heller PA-C [address] [place] [address] Scheduled Procedures Name Priority Associated Diagnoses Date/Ti [...] D LEVEL ONCE IN A LIFETIME-USE SMARTSET# 80445 Completed 05/09/2024, 06/18/2020, 07/25/2019, Additional history exists [...] this encounter Medical Devices Implanted Type Area Geodetic Surveyor Device Identifier Shelf Expiration Date Model / Serial / Lot Graft Cervical 6x8 [id number] - [id number] Implanted:Qt y: 2 [place] [facility] [place] - Human Spine Cervical Lifenet Co [id number] / / Screw Spine 14mm 50- - [id number] Implanted:Qt y: 2 [place] 08[place]21[place]2008 [place] [facility] [place]: Spine Cervical CARSON & CARSON DEPUY 50014 / / Depuy [place] 14 Mm Sd Con Scr Implanted:Qt y: 2 [place] 08[place]21/2008 [place] [facility] [place]: Spine Cervical CARSON [employer] CARSON DEPUY / / Description:Depuy [place] 14 mm SD con SCR 34 Mm Plate Implanted:Qt y: 1 [place] 08[place]21/2008 [place] [facility] [place]: Spine Cervical / / Description:34 mm Depuy plat e 14 Mm Variable Rescue Implanted:Qt y: 2 on 08/21/2008 [place] [facility] [place]A: Spine Cervical / / Description:14 mm variable r escue Screw 3.5x14 Mntr Fa [id number] - [id number] Implanted:Qt y: 10 [place] 07[place]13/[place] [facility] [place]: Spine Cervical JNJ : ETHICON CARDIOVATIONS [id number] / / Devaugh[place] [id number] - [id number] Implanted:Qt y: 1 [place] 07[place]13[place]2010 [place] [facility] [place]: Spine Cervical JNJ : ETHICON CARDIOVATIONS [id number] / / Screw Inner Mntr [id number] - [id number] Implanted:Qt y: 8 on 07[place]13/2010 [place] [facility] [place]: Spine Cervical JNJ : ETHICON CARDIOVATIONS [id number] / / Nut Outer Xcon [id number] - [id number] Implanted:Qt y: 2 on 07[place]13/2010 [place] [facility] [place]: Spine Cervical JNJ : ETHICON CARDIOVATIONS [id number] / / Screw Inner Xcon [id number] - [id number] Implanted:Qt y: 2 on 07[place]13/2010 [place] [facility] [place]: Spine Cervical JNJ : ETHICON CARDIOVATIONS [id number] / / Plate 35mm Xcon [id number] - [id number] Implanted:Qt y: 1 [place] 07[place]13/2010 [place] [facility] [place]: Spine Cervical JNJ : ETHICON CARDIOVATIONS [id number] / / documented as of this encounter [...] patient have Health Care Power of Director Phone? No * Full Code Date Activated Date [...] Power of Attor kim? No Care Teams Audience Coordinator Relationship Specialty Start Date End Date Natalia Heller PA-C [facility] [place] [id number] PCP - General Physician Data Processing Consultant 08/28/24 documented as of this encounter
--- OUTSIDE RECORDS SUMMARY | 2024-12-10 16:45 | External Medical Summary | Summary of Care ---
Author Name Unknown Organization [facility] Address [address] [facility] [place] [address] Phone [phone] Care Team Providers Care Production Control Technologist Name Role Phone Natalia Heller PA-C Primary Care Provider +1 [phone] Reason for Visit * Reason Onset Date Comments [facility]: Maintenance 11/16/2024 Encounter Details Date Type Department Care Team (Late st Contact Info) Description 11/16/2024 9:30 AM EDT Scheduled Telephone [facility], [facility] [address] [facility] [place] [address] [facility], Nurse [facility] [address] [facility] [place] [address] Allergies Active Allergy Reactions Criticality Noted Date Comments Alendronate Sodium 06/24/2012 Burning sensation and difficulty breathing Proton Pump Inhibitors Hives 02/20/2002 nexium documented as of this encounter (statuses as of 11/16/2024) Medications Multiple Vitamin (DAILY VALUE MULTIVITAMIN) Tablet [...] type II, controlled, with peripheral vascular disorder ([facility]) Use as directed. 4 Active Accu-Chek Softclix LancetsIndication s:Type 2 diabetes mellitus with foot ulcer, with long-term current use of insulin (HCC),DM (diabetes mellitus) type II, controlled, with peripheral vascular disorder ([facility]) Use to test blood glucose [...] skin. 310 units in pump. Getting from [employer] Partners[employer] PAP Active Aspirin 81 MG Oral Tablet Delayed Release Take 1 Tablet by mouth in the morning. 4 Active Metoprolol Succinate ER 50 MG Oral Tablet Extended Release 24 Hour (toPROL XL) TAKE ONE TABLET BY MOUTH TWICE A DAY 180 Tablet 3 05/09/2024 8:51 AM EDT 4 025 Active Additional Information Patient taking differently: 12.5 mg once daily, dose decreased [facility] admit 09/26/24, Reported on 10/14/2024 Isosorbide Mononitrate ER 60 MG Oral Tablet Extended Release 24 Hour (Imdur)Indication s:HTN, goal below 130/80,Coronary artery disease involving [place] coronary artery of [place] heart without angina pectoris TAKE ONE TABLET [...] Tablet Sublingual (Nitrostat)Indica tions:Coronary artery disease of [place] artery of [place] heart with stable angina pectoris (HCC) PLACE [...] Oral Tablet (Lasix)Indication s:Coronary artery disease of [place] artery of [place] heart with stable angina pectoris (HCC) Take 1 Tablet by mouth in the morning. 90 Tablet 5 Active Potassium Chloride ER 10 MEQ Oral Capsule Extended ReleaseIndication s:Coronary artery disease of [place] artery of [place] heart with stable angina pectoris (HCC) Take [...] as of this encounter (statuses as of 11/16/2024) Active Problems Problem Noted Date Diagnosed Date [...] artery disease of n ative artery of [place] heart with stable angina pectoris 12/08/2020 Assessment [...] CARDIOLOGY REFERRAL OP 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 0 05/03/2005 Assessment & Plan (10/14/2024 1:10 PM EDT): Orders: CARDIOLOGY REFERRAL OP Warfarin Sodium 5 MG Oral Tablet (Coumadin); TAKE ONE TABLET TO ONE AND ONE-HALF TABLET BY MOUTH EVERY DAY DIRECTED BY COUMADIN CLINIC documented as of this encounter (statuses as of 11/16/2024) Resolved Problems Problem Noted Date Diagnosed Date [...] as of this encounter (statuses as of 11/16/2024) Immunizations Name Administration Dates Next Due COVID-19 [...] 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 Not on [...] Miscellaneous Notes * Telephone Encounter - Casi Salomon RN - 11/16/2024 8:50 AM EDT SITUATION: pre ALBAOR call BACKGROUND: 10/21- - [facility], sepsis w/DKA and E coli bacteremia, d/c to [facility] for rehab, d/c home 11/14/24 ASSESSMENT: T/c to pt Feeling ''good'' Breathing at baseline Wore cpap last night Dexcom G7 not working - states sensor will not connect with director employee safety and health [facility] present for SOC, will be receiving SN, PT, OT Spoke with [facility] nurse, Kristan, during visit - agreed to try to troubleshoot Dexcom TREATMENT/PLAN: Agrees to call with onset of concerning s/s Has 833 number HV with RNCM 11/17 documented in this encounter Plan of Treatment Upcoming Encounters Date Type Department Care Team (Late st Contact Info) Description 11/17/2024 11:30 AM EDT Home Visit [facility], [facility] [address] [place] [address] Rosalind Smith RN [address] [place] [address] 11/17/2024 5:10 PM EDT Anticoagulation Pharmacy, [place]y [place] [address] [place] [address] [facility] [address] [place] [address] 11/19/2024 11:20 AM EDT Office Visit [facility], [place] [address] [place] [address] Alfa Jaramillo MD [address] [place] [phone] 02/18/2025 12:00 PM EDT Office Visit [facility], [place]y [place] [address] [place] [address] Natalia Heller PA-C [address] [place] [phone] Scheduled Procedures Name Priority Associated Diagnoses Date/Ti [...] D LEVEL ONCE IN A LIFETIME-USE SMARTSET# 03765 Completed 05/09/2024, 06/18/2020, 07/25/2019, Additional history exists [...] this encounter Medical Devices Implanted Type Area Semiconductor Processing Technician Device Identifier Shelf Expiration Date Model / Serial / Lot Graft Cervical 6x8 [id number] - [id number] Implanted:Qt y: 2 [place] [facility] [place] Spine Cervical Lifenet Co [id number] / / Screw Spine 14mm 014 - [id number] Implanted:Qt y: 2 [place] 08[place]21[place]2008 [place] [facility] [place]: Spine Cervical CARSON [employer] CARSON DEPUY 50-014 / / Depuy [place] 14 Mm Sd Con Scr Implanted:Qt [...] variable r escue Screw 3.5x14 Mntr Fa [id number] - [id number] Implanted:Qt y: 10 [place] [facility] [place]: Spine Cervical JNJ : ETHICON CARDIOVATIONS [id number] / / Devaughn [id number] - [id number] Implanted:Qt y: 1 [place] [facility] [place]: Spine Cervical JNJ : ETHICON CARDIOVATIONS [id number] / / Screw Inner Mntr [id number] - [id number] Implanted:Qt y: 8 on 07/13/2010 [place] [facility] [place]: Spine Cervical JNJ : ETHICON CARDIOVATIONS [id number] / / Nut Outer Xcon [id number] - [id number] Implanted:Qt y: 2 on 07[place]13[place]2010 [place] [facility] [place]: Spine Cervical JNJ : ETHICON CARDIOVATIONS [id number] / / Screw Inner Xcon [id number] - [id number] Implanted:Qt y: 2 on 07[place]13/2010 [place] [facility] [place]: Spine Cervical JNJ : ETHICON CARDIOVATIONS [id number] / / Plate 35mm Xcon [id number] - [id number] Implanted:Qt y: 1 [place]13[place]2010 [place] [facility] [place]: Spine Cervical JNJ : CLARKCON CARDIOVATIONS [id number] / / documented as of this encounter [...] patient have Health Care Power of Vp Home Health? No * Full Code Date Activated Date [...] Power of Attor kim? No Care Teams Production Control Technologist Relationship Specialty Start Date End Date Natalia Heller PA-C [facility] [place] [phone] PCP - General Physician Retirement Specialist 08/28/24 documented as of this encounter
--- OUTSIDE RECORDS SUMMARY | 2024-12-10 16:45 | External Medical Summary | Summary of Care ---
Author Name Unknown Organization [facility] Address [address] [facility] [place] [address] Phone [phone] Care Team Providers Care Clerical Transcriber Name Role Phone Natalia Heller PA-C Primary Care Provider [phone] Reason for Referral * Evaluate & Treat - Unlimited Visits (Within 30 days (routine)) - Authorized Specialty Diagnoses / Procedures Referred By Roberto gomez Referred To Contact Gastroenterology Diagnoses Unspecified cirrhosis of liver (HCC) Kelsey Wright PA-C [address] [place] [address] Phone: tel: fax: Referral ID Status Reason Start Date Expiration Date Visits Requested Visits Authorized [id number] Authorized Specialty Services Required 11/17/2024 999 999 Question Answer Referral Priority Within 30 days (routine) Where should this appointment be scheduled? [facility] For what condition is the patient being referred? Liver conditions Encounter Details Date Type Department Care Team (Late st Contact Info) Description 11/17/2024 Orders Only Access [facility], [place] [facility] [address] [place] [address] Ext *DO NOT REMOVE THIS DEPARTMENT* [place] [id number] Request, External Referral Unspecified cirrhosis of liver (HCC)* Allergies Active Allergy Reactions Criticality Noted [...] differently: 12.5 mg once daily, dose decreased [facility] admit 09/26/24, Reported on 10/14/2024 Isosorbide Mononitrate ER 60 MG Oral Tablet Extended Release 24 Hour (Imdur)Indication s:HTN, goal below 130/80,Coronary artery disease involving [place] coronary artery of [place] heart without angina pectoris TAKE ONE [...] Tablet Sublingual (Nitrostat)Indica tions: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 90 Capsule 5 7:59 AM EDT 10/10/19 25 Active Anoro Ellipta 62.5-25 MCG/ACT Inhalation Aerosol [...] medication 1 Kit 1 10/15/19 25 Active Vitamin B12 500 MCG Oral [...] artery disease of n ative artery of [place] tribe heart with stable angina pectoris 12/08/2020 [...] CARDIOLOGY REFERRAL OP Cervical spinal stenosis 08/21/2008 [facility] [...] 30 Mcg, IM, 12 yrs and above ([employer]) 05/08/2022 Pneumococcal Conjugate Vacc, 13 Valent (Prevnar) [...] No 11/19/2023 Does the household have a [facility] source of income? 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 Not on f ile Not on [...] Team (Late st Contact Info) Description 11/17/2024 5:10 PM EDT Antico[place]acy, [place] [address] [facility] [place] [phone] [address] [place] [address] History of DVT (deep vein thrombosis)*; Chronic atrial fibrillation (HCC) 11/19/2024 11:20 AM EDT Office Visit [facility] [place] [facility] [place] [phone] Alfa Jaramillo MD [address] [facility] [place] [address] 12/08/2024 10:00 AM EDT [facility] [address] [place] [address] Rosalind Smith, RN [address] [place] [address] 02/18/2025 12:00 PM EDT Office Visit [facility], [facility] [address] [facility] [place] [phone] Natalia Heller PA-C [address] [place] [address] 04/20/2025 8:40 AM EDT Office Visit Hepatology, [facility] [address] [place] [phone] Apple Walker DO [address] [place] [address] Scheduled Procedures Name Priority Associated Diagnoses Date/Ti me COLONOSCOPY FLEXIBLE PROXIMA L DIAGNOSTIC Recall Screening for colon cancer Scheduled Referrals Name Type Priority Associated Diagnoses Orde r Schedule HEPATOLOGY REFERRAL OP Referral Within 30 days (routine) Unspecified cirrhosis of liver (HCC) Ordered: 11/17/2024 Health Maintenance Due Date Last Done Comments [...] D LEVEL ONCE IN A LIFETIME-USE SMARTSET# [id number] Completed 05/09/2024, 06/18/2020, 07/25/2019, Additional history exists [...] this encounter Medical Devices Implanted Type Area Machinist Supervisor Device Identifier Shelf Expiration Date Model / Serial / Lot Graft Cervical 6x8 [id number] - [id number] Implanted:Qt y: 2 on 08/21/2008 at [place] [facility] [place] - Human Spine Cervical [employer] [id number] / / Screw Spine 14mm 50-014 - [id number] Implanted:Qt y: 2 on 08/21/2008 at [place] [facility] [place] N/A: Spine Cervical [employer] DEPUY [id number] / / Depuy Odon 14 Mm Sd Con Scr Implanted:Qt y: 2 on 08/21/2008 at [place] [facility] [place] N/A: Spine Cervical [employer] DEPUY [id number] / / Description:Depuy skyline 14 mm SD con SCR 34 Mm Plate Implanted:Qt y: 1 on 08/21/2008 at [place] [facility] [place] N/A: Spine Cervical / / Description:34 mm Depuy plat e 14 Mm Variable Rescue Implanted:Qt y: 2 on 08/21/2008 at [place] [facility] [place] N/A: Spine Cervical / / Description:14 mm variable r escue Screw 3.5x14 Mntr Fa [id number] - [id number] Implanted:Qt y: 10 on 07/13/2010 at [place] [facility] [place] N/A: Spine Cervical JN[place] : [employer] [id number] / / Devaughn [id number] - [id number] Implanted:Qt y: 1 on 07/13/2010 at [place] [facility] [place] N/A: Spine Cervical JN[place] : [employer] [id number] / / Screw Inner Mntr [id number] - [id number] Implanted:Qt y: 8 on 07/13/2010 at [place] [facility] [place] N/A: Spine Cervical JN[place] : [employer] [id number] / / Nut Outer Xcon [id number] - [id number] Implanted:Qt y: 2 on 07/13/2010 at [place] [facility] [place] N/A: Spine Cervical JNJ : [employer] [id number] / / Screw Inner Xcon [id number] - [id number] Implanted:Qt y: 2 on 07/13/2010 at [place] [facility] [place] N/A: Spine Cervical JNJ : [employer] [id number] / / Plate 35mm Xcon [id number] - [id number] Implanted:Qt y: 1 on 07/13/2010 at [place] [facility] [place] N/A: Spine Cervical JNJ : [employer] [id number] / / documented as of this encounter Visit Diagnoses Diagnosis COPD, moderate (HCC)- Primary Chronic airway obstruction, not elsewhere classified Chronic atrial fibrillation (HCC) Atrial fibrillation 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) DM (diabetes mellitus) type II, controlled, with peripheral vascular disorder ([facility]) Advanced care planning/counseling discussion Other specified counseling COPD, moderate (HCC)- Primary Chronic airway obstruction, not elsewhere classified Chronic diastolic congestive heart failure (HCC) Chronic diastolic heart failure Senile osteoporosis Acquired absence of other toe(s), unspecified side ([facility]) Hospital discharge follow-up- Primary Other follow-up examination Acute on chronic diastolic congestive heart failure (HCC) Acute on chronic diastolic heart failure 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 No * Full Code Date Activated Date [...] Power of Attor kim? No Care Teams Clerical Transcriber Relationship Specialty Start Date End Date Natalia Heller PA-C [address] [place] [phone] PCP - General Physician Clinical Associate 08/28/24 documented as of this encounter
--- OUTSIDE RECORDS SUMMARY | 2024-12-10 16:45 | External Medical Summary | Summary of Care ---
Author Name Unknown Organization [facility] Address [address] [facility] [address] Phone [phone] Care Team Providers Care Resource Specialist Teacher Name Role Phone Natalia Heller PA-C Primary Care Provider [phone] Reason for Visit * Reason Onset Date Comments [facility]: Maintenance 11/15/2024 Encounter Details Date Type Department Care Team (Late st Contact Info) Description 11/15/2024 9:30 AM EDT Scheduled Telephone [facility], [facility] [address] [facility] [place] [address] [facility], Nurse [facility] [address] [facility] [place] [address] Allergies Active Allergy Reactions Criticality Noted Date Comments Alendronate Sodium 06/24/2012 Burning sensation and difficulty breathing Proton Pump Inhibitors Hives 02/20/2002 nexium documented as of this encounter (statuses as of 11/15/2024) Medications Multiple Vitamin (DAILY VALUE MULTIVITAMIN) Tablet [...] vascular disorder ([facility]) Use as directed. 4 Active Accu-Chek Softclix [...] skin. 310 units in pump. Getting from [employer] PAP Active Aspirin 81 MG Oral Tablet Delayed Release Take 1 Tablet by mouth in the morning. 4 Active Metoprolol Succinate ER 50 MG Oral Tablet Extended Release 24 Hour (toPROL XL) TAKE ONE TABLET BY MOUTH TWICE A DAY 180 Tablet 3 05/09/2024 8:51 AM EDT 4 025 Active Additional Information Patient taking differently: 12.5 mg once daily, dose decreased [facility] admit 09/26/24, Reported on 10/14/2024 Isosorbide Mononitrate ER 60 MG Oral Tablet Extended Release 24 Hour (Imdur)Indication s:HTN, goal below 130/80,Coronary artery disease involving [place] coronary artery of [place] heart without angina pectoris TAKE ONE TABLET [...] Tablet Sublingual (Nitrostat)Indica tions:Coronary artery disease of [place] artery of [place] heart with stable angina pectoris (HCC) PLACE [...] Oral Tablet (Lasix)Indication s:Coronary artery disease of [place] artery of [place] heart with stable angina pectoris (HCC) Take 1 Tablet by mouth in the morning. 90 Tablet 5 Active Potassium Chloride ER 10 MEQ Oral Capsule Extended ReleaseIndication s:Coronary artery disease of [place] artery of [place] heart with stable angina pectoris (HCC) Take 1 Capsule by mouth in the morning. 90 Capsule 10/13/2024 7:59 AM EDT 5 Active Anoro Ellipta 62.5-25 MCG/ACT Inhalation Aerosol Powder Breath Activated (umeclidinium-iain anterol)Indicatio ns:COPD, moderate (HCC) Inhale 1 Puff by mouth in the morning. 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 Not on f ile Not on file [...] Telephone Encounter - Casi Salomon RN - 11/15/2024 9:04 AM EDT SITUATION: pre ALBARO call BACKGROUND: 10/21- - [facility], sepsis w/DKA and E coli bacteremia, d/c to [facility] for rehab, d/c home yesterday ASSESSMENT: T/c to pt Feeling ''okay overall'' Breathing at baseline Wore cpap last night Not wearing G7 but will put on this morning Bsg fingerstick 194 Denies fevers or chills Spoke with , he manages meds Has pill packs from [facility] until Sunday TREATMENT/PLAN: Agrees to call with onset of concerning s/s Has 833 number T/c f/u tomorrow HV with RNCM 11/17 documented in this encounter Plan of Treatment Upcoming Encounters Date Type Department Care Team (Late st Contact Info) Description 11/16/2024 9:30 AM EDT Scheduled Telephone [facility], [facility] [address] [facility] [place] [address] [facility], Nurse [facility] [address] [place] [address] 11/17/2024 11:30 AM EDT Home Visit [facility], [facility] [address] [facility] [place] [address] Rosalind Smith RN [address] [place] [address] 11/17/2024 5:10 PM EDT [place] [phone] [address] [place] [address] 11/19/2024 11:20 AM EDT Office [facility] [place] [facility] [address] [facility] [place] [address] Alfa Jaramillo MD [address] [facility] [place] [address] 02/18/2025 12:00 PM EDT Office Visit [facility] [place] [address] [facility] [place] [phone] Natalia Heller PA-C [address] [facility] [phone] Scheduled Procedures Name Priority Associated Diagnoses Date/Ti [...] D LEVEL ONCE IN A LIFETIME-USE SMARTSET# [id number] Completed 05/09/2024, 06/18/2020, 07/25/2019, Additional history exists [...] this encounter Medical Devices Implanted Type Area Public Information Coordinator Device Identifier Shelf Expiration Date Model / Serial / Lot Graft Cervical 6x8 [id number] - [id number] Implanted:Qt y: 2 on 08/21/2008 at [place] [facility] [place] Tissue - Human Spine Cervical [employer] [id number] / / Screw Spine 14mm 50-014 - [id number] Implanted:Qt y: 2 on 08/21/2008 at [place] [facility] N/A: Spine Cervical [employer] CARSON DEPUY 50014 / / Depuy Ventana 14 Mm Sd Con Scr Implanted:Qt y: [...] variable r escue Screw 3.5x14 Mntr Fa [id number] - [id number] Implanted:Qt y: 10 on 07/13/2010 at [place] [facility] N/A: Spine Cervical JNJ : [employer]ON [employer] [id number] / / Devaughn [id number] - [id number] Implanted:Qt y: 1 on 07/13/2010 at [place] [facility] N/A: Spine Cervical JNJ : [employer]ATIONS [id number] / / Screw Inner Mntr [id number] - [id number] Implanted:Qt y: 8 on 07/13/2010 at [place] [facility] N/A: Spine Cervical JNJ : [employer] [id number] / / Nut Outer Xcon [id number] - [id number] Implanted:Qt y: 2 on 07/13/2010 at [place] [facility] N/A: Spine Cervical JNJ : [employer] [id number] / / Screw Inner Xcon [id number] - [id number] Implanted:Qt y: 2 on 07/13/2010 at [place] [facility] N/A: Spine Cervical JNJ : [employer] [id number] / / Plate 35mm Xcon [id number] - [id number] Implanted:Qt y: 1 on 07/13/2010 at [place] [facility] N/A: Spine Cervical JNJ : [employer] [id number] / / documented as of this encounter [...] the patient have Health Care Power of Bi Technical Lead? No * Full Code Date Activated [...] Power of Attor kim? No Care Teams Resource Specialist Teacher Relationship Specialty Start Date End Date Natalia Heller PA-C [address] [place] [address] PCP - General Physician Border Measurer And Cutter 08/28/24 documented as of this encounter
--- OUTSIDE RECORDS SUMMARY | 2024-12-10 16:45 | External Medical Summary | Summary of Care ---
Author Name Unknown Organization [facility] Address [address] [facility] [address] Phone [phone] Care Team Providers Care Source Water Protection Specialist Name Role Phone Natalia Heller PA-C Primary Care Provider [phone] [phone] Reason for Visit * Reason Comments Dosage Adjustment In Person (Anticoag Cl inic) Encounter Details Date Type Department Care Team (Latest Contact Info) Description 11/14/2024 5:10 PM EDT Anticoagulation Pharmacy, [facility] [address] [place] [phone] [facility] [address] [place] [id number] History of DVT (deep vein thrombosis)*; Chronic atrial fibrillation (HCC); Anticoagulation management encounter Allergies Active Allergy Reactions Criticality Noted Date Comments Alendronate Sodium 06/24/2012 Burning sensation and difficulty breathing Proton Pump Inhibitors Hives 02/20/2002 nexium documented as of this encounter (statuses as of 11/14/2024) Medications Multiple Vitamin (DAILY VALUE MULTIVITAMIN) Tablet [...] [facility]) Use as directed. 4 Active [...] skin. 310 units in pump. Getting from [employer] PAP Active Aspirin 81 MG Oral Tablet Delayed Release Take 1 Tablet by mouth in the morning. 4 Active Metoprolol Succinate ER 50 MG Oral Tablet Extended Release 24 Hour (toPROL XL) TAKE ONE TABLET BY MOUTH TWICE A DAY 180 Tablet 3 05/09/2024 8:51 AM EDT 4 025 Active Additional Information Patient taking differently: 12.5 mg once daily, dose decreased [facility] admit 09/26/24, Reported on 10/14/2024 Isosorbide Mononitrate ER 60 MG Oral Tablet Extended Release 24 Hour (Imdur)Indication s:HTN, goal below 130/80,Coronary artery disease involving little [...] Tablet Sublingual (Nitrostat)Indica tions:Coronary artery disease of little river artery of [...] Oral Tablet (Lasix)Indication s: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 (HCC) Take 1 Tablet by mouth in the morning. 90 Tablet 5 Active Potassium Chloride ER 10 MEQ Oral Capsule Extended ReleaseIndication s: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 (HCC) Take 1 Capsule by mouth in the morning. 90 Capsule 10/13/2024 7:59 AM EDT 5 Active Anoro Ellipta 62.5-25 MCG/ACT Inhalation Aerosol Powder Breath Activated (umeclidinium-iain anterol)Indicatio ns:COPD, moderate (HCC) Inhale 1 Puff by mouth in the morning. 90 Each 1 10/17/2024 7:02 AM EDT 5 Active Warfarin Sodium 5 MG Oral Tablet (Coumadin)Indicat ions:long term current use of anticoagulant therapy,Deep vein thrombosis [...] as of this encounter (statuses as of 11/14/2024) Active Problems Problem Noted Date Diagnosed Date [...] CARDIOLOGY REFERRAL OP Cervical spinal stenosis 08/21/2008 long term current use of anticoagulant therapy 0 05/03/2005 Assessment & Plan (10/14/2024 1:10 PM EDT): Orders: CARDIOLOGY REFERRAL OP Warfarin Sodium 5 MG Oral Tablet (Coumadin); TAKE ONE TABLET TO ONE AND ONE-HALF TABLET BY MOUTH EVERY DAY DIRECTED BY [facility] documented as of this encounter (statuses as of 11/14/2024) Resolved Problems Problem Noted Date Diagnosed Date [...] as of this encounter (statuses as of 11/14/2024) Immunizations Name Administration Dates Next Due COVID-19 [...] 18 years and over) Not on file 4 Are you (or your family) ricky eless [...] Not on file 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 Not on f ile Not on [...] Progress Notes * Shanthi Franks RPh - 11/14/2024 7:39 AM EDT Medication Therapy Disease Management - Anticoagulation Patient: Graciela Mobley | : 1950 Subjective Pt admitted at [facility] since 10/29/24. Chart reviewed, [place] following and per notes show that it looks like discharge home today. [facility] will follow up on Sunday to check status and offer inperson fingerstick vs GML for INR check (assuming that coumadin continued-- discharge notes from [facility] state that it is) As for DM management, will also coordinate feasibility with MTM assisting in management. It looks like insulin pump was discontinued and patient is now on basal bolus insulin. Will follow up Sunday regardless. Shanthi Franks RPh Clinical Pharmacist 11/14/2024, 7:41 AM documented in this encounter Plan of Treatment Upcoming Encounters Date Type Department Care Team (Late st Contact Info) Description 11/15/2024 9:30 AM EDT Scheduled Telephone [facility], [facility] [address] [facility] [place] [address] [facility], Nurse [address] [place] [address] 11/16/2024 9:30 AM EDT Scheduled Telephone [facility], [facility] [address] [place] [address] [facility], Nurse [facility] [address] [place] [address] 11/17/2024 11:30 AM EDT Home Visit [facility], [facility] [address] [place] [address] Rosalind Smith, RN [address] [address] 11/17/2024 5:10 PM EDT Anticoagulation Pharmacy, [facility] Gauri Herbert [place] [phone] [address] [address] 11/19/2024 11:20 AM EDT Office Visit [facility] [place] [address] [place] [phone] Alfa Jaramillo MD [address] [place] [address] 02/18/2025 12:00 PM EDT Office Visit [facility] [place] Ariadna Herbert [place] [phone] Natalia Heller PA-C [address] [place] [address] Scheduled Procedures Name Priority Associated Diagnoses Date/Ti me COLONOSCOPY FLEXIBLE PROXIMA L DIAGNOSTIC Recall Screening for colon cancer Health Maintenance Due Date Last Done Comments *BISPHONATE OR OTHER ACCEPTABLE MEDICATION NEEDED FOR OSTEOPOROSIS (REFER TO SMARTSET #1146) 08/07/2014 Adult Wellness Visit 03/27/2023 03/27/2022, 01/19/20 21 COVID-19 Vaccine (5 - season) 2024 05/08/2022, 07/20/2021, 10/13/2020, Additional history exists Zoster Vaccines (3 of 3) 08/06/2024 06/11/2024, 0708/2016 DTap/Tdap Vaccines (2 - Td or Tdap) [...] D LEVEL ONCE IN A LIFETIME-USE SMARTSET# 05454 Completed 05/09/2024, 06/18/2020, 07/25/2019, Additional history exists [...] this encounter Medical Devices Implanted Type Area Group Home Supervisor Device Identifier Shelf Expiration Date Model / Serial / Lot Graft Cervical 6x8 [id number] - [id number] Implanted:Qt y: 2 on 08/21/2008 at [place] [facility] [place] Tissue - Human Spine Cervical [employer] Co [id number] / / Screw Spine 14mm 8-50-014 - [id number] Implanted:Qt y: 2 on 08/21/2008 at [place] [facility] [place] N/A: Spine Cervical CARSON [employer] CARSON DEPUY 1868-50-014 / / Depuy [place] 14 Mm Sd Con Scr Implanted:Qt y: [...] variable r escue Screw 3.5x14 Mntr Fa [id number] - [id number] Implanted:Qt y: 10 on 07/13/2010 at [place] [facility] [place] N/A: Spine Cervical JNJ : ETHICON CARDIOVATIONS [id number] / / Devaughn [id number] - [id number] Implanted:Qt y: 1 on 07/13/2010 at [place] [facility] [place] N/A: Spine Cervical JNJ : ETHICON CARDIOVATIONS [id number] / / Screw Inner Mntr [id number] - [id number] Implanted:Qt y: 8 on 07/13/2010 at [place] [facility] [place] N/A: Spine Cervical JNJ : ETHICON CARDIOVATIONS [id number] / / Nut Outer Xcon [id number] - [id number] Implanted:Qt y: 2 on 07/13/2010 at [place] [facility] [place] N/A: Spine Cervical JNJ : ETHICON CARDIOVATIONS [id number] / / Screw Inner Xcon [id number] - [id number] Implanted:Qt y: 2 on 07/13/2010 at [place] [facility] [place] N/A: Spine Cervical JNJ : ETHICON CARDIOVATIONS [id number] / / Plate 35mm Xcon [id number] - [id number] Implanted:Qt y: 1 on 07/13/2010 at [place] [facility] [place] N/A: Spine Cervical JNJ : ETHICON CARDIOVATIONS [id number] / / documented as of this encounter Visit Diagnoses Diagnosis COPD, moderate (HCC)- Primary Chronic airway obstruction, not elsewhere classified Chronic atrial fibrillation (HCC) Atrial fibrillation 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 (HCC) DM (diabetes mellitus) type II, controlled, with peripheral vascular disorder ([facility]) Advanced care planning/counseling discussion Other specified counseling COPD, moderate (HCC)- Primary Chronic airway obstruction, not elsewhere classified Chronic diastolic congestive heart failure (HCC) Chronic diastolic heart failure Senile osteoporosis Acquired absence of other toe(s), unspecified side ([facility]) Hospital discharge follow-up- Primary Other follow-up examination Acute on chronic diastolic congestive heart failure (HCC) Acute on chronic diastolic heart failure 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 (HCC) Chronic atrial fibrillation (HCC) Atrial fibrillation Dyslipidemia, goal LDL below 100 Other and unspecified hyperlipidemia long term current use of anticoagulant therapy SOB (shortness [...] have Health Care Power of Environmental Services Project Manager? No * Full Code Date Activated [...] Power of Attor kim? No Care Teams Source Water Protection Specialist Relationship Specialty Start Date End Date Natalia Heller PA-C [address] [place] [phone] PCP - General Physician Planer Off Bearer 08/28/24 documented as of this encounter
--- OUTSIDE RECORDS SUMMARY | 2024-12-10 16:45 | External Medical Summary | Summary of Care ---
Author Name Unknown Organization [facility] Address [address] [place] [address] Phone [phone] Care Team Providers Care Insulation Hoseman Name Role Phone Natalia Heller PA-C Primary Care Provider [phone] Reason for Visit * Reason Onset Date Comments Appointment 11/12/2024 Encounter Details Date Type Department Care Team (Late st Contact Info) Description 11/12/2024 Telephone [facility], [facility] [address] [place] [phone] Bernie Méndez, SHAKIRA [address] [place] [address] Appointment (//) Allergies Active Allergy Reactions Criticality Noted Date [...] controlled, with peripheral vascular disorder ([facility]) Use to test blood glucose [...] skin. 310 units in pump. Getting from [employer] PAP Active Aspirin 81 MG Oral Tablet Delayed Release Take 1 Tablet by mouth in the morning. 4 Active Metoprolol Succinate ER 50 MG Oral Tablet Extended Release 24 Hour (toPROL XL) TAKE ONE TABLET BY MOUTH TWICE A DAY 180 Tablet 3 05/09/2024 8:51 AM EDT 4 025 Active Additional Information Patient taking differently: 12.5 mg once daily, dose decreased [facility] admit 09/26/24, Reported on 10/14/2024 Isosorbide Mononitrate ER 60 MG Oral Tablet Extended Release 24 Hour (Imdur)Indication s:HTN, goal below 130/80,Coronary artery disease involving [place] coronary artery of [place] heart without angina pectoris TAKE ONE TABLET [...] Tablet Sublingual (Nitrostat)Indica tions:Coronary artery disease of [place] artery of [place] heart with stable angina pectoris (HCC) PLACE [...] Oral Tablet (Lasix)Indication s:Coronary artery disease of [place] artery of [place] heart with stable angina pectoris (HCC) Take 1 Tablet by mouth in the morning. 90 Tablet 5 Active Potassium Chloride ER 10 MEQ Oral Capsule Extended ReleaseIndication s:Coronary artery disease of [place] artery of [place] heart with stable angina pectoris (HCC) Take 1 Capsule by mouth in the morning. 90 Capsule 10/13/2024 7:59 AM EDT 5 Active Anoro Ellipta 62.5-25 MCG/ACT Inhalation Aerosol Powder Breath Activated (umeclidinium-iain anterol)Indicatio ns:COPD, moderate (HCC) Inhale 1 Puff by mouth in the morning. 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 Not on f ile Not on file [...] encounter Miscellaneous Notes * Telephone Encounter - Bernie Méndez OSA - 11/12/2024 9:34 AM EDT TT request to schedule a ALBARO for DC from [facility] on Sun, I scheduled it for Sunday and also scheduled weekend calls to check in. Called home phone and left detailed message with return cb number if Sunday didn't work to call us back documented in this encounter Plan of Treatment Upcoming Encounters Date Type Department Care Team (Late st Contact Info) Description 11/14/2024 5:10 PM EDT Anticoagulation Pharmacy, [place] [facility] [facility] [place] [phone] [facility] [address] [facility] [address] 11/15/2024 9:30 AM EDT Scheduled Telephone [facility], [facility] [address] [facility] [place] [address] [facility], Nurse [facility] [address] [facility] [place] [address] 11/16/2024 9:30 AM EDT Scheduled Telephone [facility], [facility] [address] [place] [address] [facility], Nurse [address] [place] [address] 11/17/2024 11:30 AM EDT Home Visit [facility], [facility] [address] [place] [address] Rosalind Smith, RN [address] [place] [address] 11/19/2024 11:20 AM EDT Office Visit [facility] Corky Herbert Juan [address] [place] [phone] Alfa Jaramillo MD [address] [place] [address] 02/18/2025 12:00 PM EDT Office Visit [facility] Corky Herbert Juan [address] [place] [phone] Natalia Heller PA-C [address] [place] [address] Scheduled Procedures Name Priority Associated Diagnoses Date/Ti [...] D LEVEL ONCE IN A LIFETIME-USE SMARTSET# 38203 Completed 05/09/2024, 06/18/2020, 07/25/2019, Additional history exists [...] this encounter Medical Devices Implanted Type Area Vice Investigator Device Identifier Shelf Expiration Date Model / Serial / Lot Graft Cervical 6x8 [id number] - [id number] Implanted:Qt y: 2 on 08/21/2008 [place] [facility] [place] - Human Spine Cervical [employer] Co [id number] / / Screw Spine 14mm 50-014 - [id number] Implanted:Qt y: 2 on 08/21/2008 at [place] [facility] [place] N/A: Spine Cervical CARSON [employer] CARSON DEPUY [id number] / / Depuy [place] 14 Mm Sd Con Scr Implanted:Qt y: 2 on 08/21/2008 at [place] [facility] [place] N/A: Spine Cervical [employer] CAR[employer] DEPUY 60-014 / / Description:Depuy [place] 14 mm SD con SCR 34 Mm Plate Implanted:Qt y: 1 on 08/21/2008 at [place] [facility] [place] N/A: Spine Cervical / / Description:34 mm Depuy plat e 14 Mm Variable Rescue Implanted:Qt y: 2 on 08/21/2008 at [place] [facility] [place] N/A: Spine Cervical / / Description:14 mm variable r escue Screw 3.5x14 Mntr Fa [id number] - [id number] Implanted:Qt y: 10 on 07/13/2010 at [place] [facility] [place]/A: Spine Cervical JNJ : ETHICON CARDIOVATIONS [id number] / / Devaughn [id number] - [id number] Implanted:Qt y: 1 on 07/13/2010 at [place] [facility] [place]/A: Spine Cervical JNJ : ETHICON CARDIOVATIONS [id number] / / Screw Inner Mntr [id number] - [id number] Implanted:Qt y: 8 on 07/13/2010 at [place] [facility] [place]/A: Spine Cervical JNJ : ETHICON CARDIOVATIONS [id number] / / Nut Outer Xcon [id number] - [id number] Implanted:Qt y: 2 on 07/13/2010 at [place] [facility] [place]/A: Spine Cervical JNJ : ETHICON CARDIOVATIONS [id number] / / Screw Inner Xcon [id number] - [id number] Implanted:Qt y: 2 on 07/13/2010 at [place] [facility] [place]/A: Spine Cervical JNJ : ETHICON CARDIOVATIONS [id number] / / Plate 35mm Xcon [id number] - [id number] Implanted:Qt y: 1 on 07/13/2010 at [place] [facility] [place]/A: Spine Cervical JNJ : ETHICON CARDIOVATIONS [id number] / / documented as of this encounter [...] the patient have Health Care Power of Scale Reclamation Tender? No * Full Code Date Activated Date [...] Power of Attor kim? No Care Teams Insulation Hoseman Relationship Specialty Start Date End Date Natalia Heller PA-C [address] [place] [phone] PCP - General Physician Lockstitch Pocket Setter 08/28/24 documented as of this encounter
--- OUTSIDE RECORDS SUMMARY | 2024-12-10 16:46 | External Medical Summary | Summary of Care ---
Author Name Unknown Organization [facility] Address [address] [facility] [place] [address] Phone [phone] Care Team Providers Care Ear Machine Operator Name Role Phone Natalia Heller PA-C Primary Care Provider [phone] Reason for Visit * Reason Onset Date Comments [facility]: Maintenance 11/11/2024 Encounter Details Date Type Department Care Team (Late st Contact Info) Description 11/11/2024 Telephone [facility], [facility] [address] [facility] [address] [place] [phone] Pauline Isaacs, JOSE [address] [facility] [place] [address] [facility]: Maintenance Allergies Active Allergy [...] peripheral vascular disorder ([facility]) Use as directed. 4 Active Accu-Chek Softclix [...] skin. 310 units in pump. Getting from [employer] PAP Active Aspirin 81 MG Oral Tablet Delayed Release Take 1 Tablet by mouth in the morning. 4 Active Metoprolol Succinate ER 50 MG Oral Tablet Extended Release 24 Hour (toPROL XL) TAKE ONE TABLET BY MOUTH TWICE A DAY 180 Tablet 3 05/09/2024 8:51 AM EDT 4 025 Active Additional Information Patient taking differently: 12.5 mg once daily, dose decreased [facility] admit 09/26/24, Reported on 10/14/2024 Isosorbide Mononitrate ER 60 MG Oral Tablet Extended Release 24 Hour (Imdur)Indication s:HTN, goal below 130/80,Coronary artery disease involving [place] coronary artery of [place] heart without angina pectoris TAKE ONE TABLET [...] Tablet Sublingual (Nitrostat)Indica tions:Coronary artery disease of [place] artery of [place] heart with stable angina pectoris (HCC) PLACE [...] Oral Tablet (Lasix)Indication s:Coronary artery disease of [place] artery of [place] heart with stable angina pectoris (HCC) Take 1 Tablet by mouth in the morning. 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 Not on f ile Not on file [...] Telephone Encounter - Pauline Isaacs LPN - 11/11/2024 4:21 PM EDT Received call from Katie TREADWELL at [facility], for DC to home Tuesday 11/14. Will be DC with a CPAP set up, no HH or other DME TT to [facility] guidance secretary for ALBARO documented in this encounter Plan of Treatment Upcoming Encounters Date Type Department Care Team (Late st Contact Info) Description 11/12/2024 8:20 AM EDT Office Visit Family Practice, [place]y [address] [place] [phone] Natalia Heller PA-C [address] [place] [address] 11/14/2024 5:10 PM EDT Anticoagulation Pharmacy, [place] [address] [place] [phone] [facility] [address] [facility] [place] [address] 11/17/2024 11:30 AM EDT Home Visit [facility] [address] [place] [address] Luis, Rosalind H, RN [address] [place] [address] 11/19/2024 11:20 AM EDT Office Visit [facility], [place] [place] [phone] Alfa Jaramillo MD [address] [place] [address] 02/18/2025 12:00 PM EDT Office Visit [facility], [address] [place] [address] Natalia Heller PA-C [address] [place] [phone] Scheduled Procedures Name Priority Associated Diagnoses Date/Ti [...] 05/09/2025 05/09/2024, 05/03/2024, 11/23/2023, Additional history exists Diabetic Eye Exam [...] ONCE IN A LIFETIME-USE SMARTSET# 54112 Completed 05/09/2024, 06/18/2020, 07/25/2019, Additional history exists [...] this encounter Medical Devices Implanted Type Area Ground Operations Superintendent Device Identifier Shelf Expiration Date Model / Serial / Lot Graft Cervical 6x8 [id number] - [id number] Implanted:Qt y: 2 on 08/21/2008 at [place] [facility] [place] Tissue - Human Spine Cervical Lif[employer] Co [id number] / / Screw Spine 14mm 014 - [id number] Implanted:Qt y: 2 on 08/21/2008 at [place] [facility] [place] N/A: Spine Cervical LUIS & LUIS DEPUY 50-014 / / Depuy [place] 14 Mm Sd Con Scr Implanted:Qt y: 2 on 08/21/2008 at [place] [facility] [place] N/A: Spine Cervical LUIS & LUIS DEPUY 60014 / / Description:Depuy [place]yline 14 mm SD con SCR 34 Mm Plate Implanted:Qt y: 1 on 08/21/2008 at [place] [facility] [place] N/A: Spine Cervical / / Description:34 mm Depuy plat e 14 Mm Variable Rescue Implanted:Qt y: 2 on 08/21/2008 at [place] [facility] [place] N/A: Spine Cervical / / Description:14 mm variable r escue Screw 3.5x14 Mntr Fa [id number] - [id number] Implanted:Qt y: 10 on 07/13/2010 at [place] [facility] [place] N/A: Spine Cervical JNJ : ETHICON CARDIOVATIONS [id number] / / Devaughn [id number] - [id number] Implanted:Qt y: 1 on 07/13/2010 at [place] [facility] [place] N/A: Spine Cervical JNJ : ETHICON CARDIOVATIONS [id number] / / Screw Inner Mntr [id number] - [id number] Implanted:Qt y: 8 on 07/13/2010 at [place] [facility] [place] N/A: Spine Cervical JNJ : ETHICON CARDIOVATIONS [id number] / / Nut Outer Xcon [id number] - [id number] Implanted:Qt y: 2 on 07/13/2010 at [place] [facility] [place] N/A: Spine Cervical JNJ : ETHICON CARDIOVATIONS [id number] / / Screw Inner Xcon [id number] - [id number] Implanted:Qt y: 2 on 07/13/2010 at [place] [facility] [place] N/A: Spine Cervical JNJ : ETHICON CARDIOVATIONS [id number] / / Plate 35mm Xcon [id number] - [id number] Implanted:Qt y: 1 on 07/13/2010 at [place] [facility] [place] N/A: Spine Cervical JNJ : ETHICON CARDIOVATIONS [id number] / / documented as of this encounter [...] the patient have Health Care Power of Dispensing Audiologist? No * Full Code Date Activated Date [...] Power of Attor kim? No Care Teams Ear Machine Operator Relationship Specialty Start Date End Date Natalia Heller PA-C [facility] [place] [phone] PCP - General Physician Parer 08/28/24 documented as of this encounter
[2024-12-10] MEDS: LANTUS PER UNIT CHARGE SC ONE (16:49)
[2024-12-10] MEDS: INSULIN ASPART PER UNIT CHARGE SC SCH ×2 (16:49→23:58)
[2024-12-10] MEDS ORDERED: LANTUS PER UNIT CHARGE SQ SCH (21:00)
[2024-12-11] MEDS ORDERED: INSULIN HUMAN REGULAR PER UNIT 3 UNITS in SYRINGE 0 ML IV STA (00:07)
[2024-12-11 06:30] LABS: Hematocrit (blood only) 26.2 % (37.0-47.0); Mean Corpuscular Hgb Conc 30.5 g/dL (32.0-36.0); Mean Corpuscular Volume 85.1 fL (80.0-100.0); Platelet Count 158 K/uL (130-400); RDW Coefficient of Variation 16.8 % (11.5-14.5); Red Blood Count 3.08 M/uL (4.20-5.40)
[2024-12-11 06:58] LABS: Prothrombin Time 20.6 Seconds (9.0-12.0)
[2024-12-11 07:24] LABS: Calcium 8.9 mg/dl (8.6-10.3); Creatinine Clr Calc Pharmacy 55.7 ml/min; Potassium 5.5 mmol/L (3.5-5.1)
[2024-12-11] MEDS ORDERED: PHARMACY GLYCEMIC MGMT CONSULT PRN (07:35)
[2024-12-11] MEDS: INSULIN HUMAN REGULAR PER UNIT 10 UNITS in SYRINGE 9.9 ML IV ONE (08:09)
[2024-12-11] MEDS: INSULIN ASPART PER UNIT CHARGE SC SCH ×2 (08:09→11:52)
--- NOTE | 2024-12-11 08:13 | Electrocardiogram Report ---
Test Reason : Blood Pressure : */* mmHG Vent. Rate : 92 BPM Atrial Rate : 92 BPM P-R Int : 140 ms QRS Dur : 88 ms QT Int : 400 ms P-R-T Axes : 79 50 -42 degrees QTcB Int : 494 ms Normal sinus rhythm Nonspecific ST and T wave abnormality Prolonged QT Abnormal ECG When compared with ECG of 24-Oct-2024 10:09, Premature supraventricular complexes are no longer Present Vent. rate has decreased by 52 bpm T wave inversion now evident in Anterolateral leads Confirmed by Omar Meyers ([id number]) on 12/11/2024 8:12:52 AM Referred By: REFERRED SELF Confirmed By: Omar Meyers
[2024-12-11] MEDS: ISOSORBIDE MONO EXTENDED REL 60 MG TABCR PO SCH (08:14)
[2024-12-11] MEDS: ASPIRIN 81 MG ECTAB PO SCH (08:14)
[2024-12-11] MEDS: METOPROLOL SUCC 25MG EXT REL TAB PO SCH ×2 (08:14→21:33)
[2024-12-11] MEDS: FAMOTIDINE 40 MG TABLET PO SCH (08:14)
[2024-12-11] MEDS: CHOLECALCIFEROL 25 MCG (1000 UNITS) TAB PO SCH (08:14)
[2024-12-11] MEDS: ROSUVASTATIN CALCIUM 20 MG TAB PO SCH (08:14)
[2024-12-11] MEDS: FERROUS SULFATE 325 MG TAB PO SCH (08:15)
[2024-12-11] MEDS: CYANOCOBALAMIN (B-12) 500 MCG TABLET PO SCH (08:15)
[2024-12-11] MEDS: UMECLIDINIUM/VILANTEROL 62.5/25MCG 7 PUFFS/INHALER INH SCH (08:15)
[2024-12-11] MEDS: ASCORBIC ACID 500 MG TAB PO SCH (08:15)
[2024-12-11] MEDS: SODIUM ZIRCONIUM CYCLOSILICATE 10 GM PACKET PO ONE (08:47)
[2024-12-11] MEDS ORDERED: POTASSIUM CHLORIDE CRTAB 20 MEQ TABCR PO SCH (09:00)
[2024-12-11 10:23] LABS: Estimated Average Glucose 243 mg/dl; Hemoglobin A1C 10.1 % (4.5-5.6)
[2024-12-11] MEDS: predniSONE 20 MG TAB PO SCH (11:00)
[2024-12-11] MEDS: FUROSEMIDE INJ 20 MG/2 ML VIAL IV ONE (11:00)
[2024-12-11] MEDS: NovoLIN-N (NPH) PER UNIT CHARGE SQ SCH (11:16)
--- NOTE | 2024-12-11 11:21 | Cardiology Progress Note ---
Date of Service December 11, 2024 Assessment & Plan (1) Acute on chronic diastolic heart failure: Plan: * Patient endorses symptoms of dyspnea on exertion without chest discomfort. * Mild troponin elevation, 74 -->89-->65-->49.3 pg /ml, relatively flat sabiha * Has substrate for underlying ischemia with known chronic total occlusion of the right coronary artery * Inferolateral ST T wave abnormalities noted on EKG on 12/11/24, More prominent than recent tracing, however very similar to that which prompted cardiac catheterization in 2023 * Hyperkalemia now noted Without abrupt worsening in creatinine. * Hold diuretics. Lokelma administered this morning. Repeat basic metabolic panel in a.m. left 12/12 * Continue warfarin for stroke prophylaxis * Continue metoprolol, aspirin, isosorbide mononitrate, rosuvastatin-Medical management for underlying coronary heart disease (2) Prolonged QT interval: Plan: * History of torsades de pointes. Previous treatment with sertraline, trazodone, Lyrica discontinued during hospital stay in September, and not resumed. * Avoid QT prolonging agents * Repeat magnesium level AML 12/12/2024 * Bradycardia noted during past admission when the torsades occurred, will cau tiously increase metoprolol succinate to 12.5 mg twice daily * Although patient's history is notable for "permanent "atrial fibrillation, telemetry and EKG today reveal sinus rhythm/sinus tachycardia with frequent PACs (3) Chronic atrial fibrillation: Plan: * Continue metoprolol for rate control, may need to be titrated, continue w arfarin, goal INR 23 Admission and Anticipated Discharge Date Admission Date: December 10, 2024 Subjective Patient seen in cardiology follow-up. Denies chest discomfort. Denies shortness of breath at rest and states that she feels subjectively improved compared to yesterday. Telemetry reveals sinus tachycardia 105 bpm Physical Exam Physical Exam: Temp Pulse Resp BP Pulse Ox O2 Del Method O2 Flow Rate 36.5 C 100 H 18 129/71 98 Nasal Cannula 2 12/11/24 07:56 12/11/24 07:56 12/11/24 07:56 12/11/24 07:56 12/11/24 07:56 12/11/24 09:30 12/11/24 03:42 General: no acute distress and stated age Eyes: conjunctiva are pink and non-injected, sclera clear Neck: normal jugular venous pulse, no hepatojugular reflux Chest: normal shape and normal respiratory effort Lungs: Mildly decreased breath sounds at the bases Cardiac Exam: -Tachycardic, regular rhythm, 2/6 systolic murmur heard best at the right sternal border Abdomen: abdomen soft, non-tender, no abnormal masses and no hepatosplenomegaly Musculoskeletal: no gait disturbance, no weakness Extremities: no edema and no cyanosis Neuro:awake, conversant, follows commands, no focal motor deficits Psych: appropriate affect and insight. Results & Data Vital Signs (Past 12 Hours) Vital Signs Temp Pulse Pulse Resp BP BP Pulse Ox 12/11/24 09:30 12/11/24 07:56 36.5 C 100 H 18 129/71 98 12/11/24 07:00 97 H 12/11/24 03:42 36.7 C 99 H 19 111/68 97 O2 Del Method O2 Flow Rate 12/11/24 09:30 Nasal Cannula 12/11/24 07:56 Room Air 12/11/24 07:00 12/11/24 03:42 Nasal Cannula 2 Laboratory Results Cardiac Enzymes 12/10/24 12/10/24 12/10/24 Range/Units 10:49 12:56 16:54 AST 33 (13-39) U/L Troponin I High Sens 74.3 H* 89.3 H* D 64.8 H* D (0-14) pg/ml B-Natriuretic Peptide 471 H (0-100) pg/ml 12/10/24 Range/Units 23:16 AST (13-39) U/L Troponin I High Sens 49.3 H D (0-14) pg/ml B-Natriuretic Peptide (0-100) pg/ml Coagulation 12/10/24 12/10/24 12/11/24 Range/Units 10:49 12:56 06:14 PT 21.4 H 20.6 H (9.0-12.0) Seconds APTT 32 H (21-31) Seconds B-Natriuretic Peptide 471 H (0-100) pg/ml CBC 12/10/24 12/11/24 Range/Units 10:49 06:14 WBC 5.47 5.90 (4.8-10.8) K/ul RBC 3.39 L 3.08 L (4.20-5.40) M/uL Hgb 8.9 L 8.0 L (12.0-16.0) g/dl Hct 28.9 L 26.2 L (37.0-47.0) % Plt Count 177 158 (130-400) K/uL Neut # (Auto) 3.47 (1.40-6.50) K/uL Lymph # (Auto) 1.08 L (1.20-3.40) K/uL [place] # (Auto) 0.52 (0.11-0.59) K/uL Eos # (Auto) 0.33 (0.00-0.50) K/uL Baso # (Auto) 0.06 (0.00-0.20) K/uL Comprehensive Metabolic Panel 12/10/24 12/11/24 Range/Units 10:49 06:14 Sodium 142 136 (136-145) mmol/L Potassium 4.1 5.5 H D (3.5-5.1) mmol/L Chloride 109 H 102 (98-107) mmol/L Carbon Dioxide 29 29 (21-32) mmol/L BUN 12 29 H (6-23) mg/dl Creatinine 0.75 1.00 (0.6-1.2) mg/dl Glucose 87 407 H* (70-99(Fasting)) mg/dl Calcium 9.3 8.9 (8.6-10.3) mg/dl AST 33 (13-39) U/L ALT 22 (7-52) U/L Alkaline Phosphatase 115 H (34-104) U/L Total Protein 7.0 (6.0-8.3) gm/dl Albumin 3.7 (3.4-5.0) gm/dl Diagnostic Findings EKG performed on 12/11/2024 at 5:42 AM reveals sinus rhythm at 96 bpm with premature atrial contractions and ST-T wave abnormality suggestive of inferolateral ischemia. The corrected QT is difficult to discern due to the T wave abnormality but appears prolonged at 490 ms.
[2024-12-11] MEDS ORDERED: INSULIN ASPART PER UNIT CHARGE SC SCH (11:30)
[2024-12-11] MEDS: LANTUS PER UNIT CHARGE SC SCH ×2 (11:53→21:32)
--- NOTE | 2024-12-11 13:28 | Hospitalist Progress Note ---
Date of Service December 11, 2024 Assessment & Plan (1) SOB (shortness of breath): Plan: -likely combination of HFpEF and bronchospasm in setting of HFpEF Plan: -start prednisone 40 mg x5 days -martha -cardiology consulted, appreciate recs -goal oxygen 90% (2) Acute on chronic diastolic heart failure: Plan: -appreciate cardiology input -lokelma given x1 (3) Nonspecific ST-T wave electrocardiographic changes: Plan: -appreciate cards input (4) Coronary artery disease: Plan: -noted (5) COPD (chronic obstructive pulmonary disease): Plan: -see above (6) Chronic atrial fibrillation: Plan: -Rate controlled on metoprolol -Anticoagulated on Coumadin, INR 2.1. Continue [employer] dose Coumadin 5 mg daily -unclear if true afib or sinus with PACs (7) History of DVT (deep vein thrombosis): Plan: on coumadin (8) History of pulmonary embolism: Plan: -Anticoagulated on Coumadin, INR 2.1. Continue [employer] dose Coumadin 5 mg daily (9) Insulin dependent type 2 diabetes mellitus: Plan: -glucose uncontrolled at this time Plan: -start insulin drip -check BMP, ketones, lactic acid, mg, phos (10) Anemia: Plan: Hgb 8.9, at recent baseline -Continue to monitor CBC I spent a total of 55 minutes in direct patient care, including [id number] time with the patient and/or family, reviewing medical records, ordering and reviewing diagnostic tests, and coordinating care with other healthcare providers. This time includes: history taking, physical examination, medical decision making, counseling, ECG interpretation, imaging interpretation, lab interpretation, orders, and education, excluding time spent in the performance of separately billed services. Admission and Anticipated Discharge Date Admission Date: December 10, 2024 Subjective Patient seen and examined at bedside. Patient doing well today overall, feeling slightly SOB. Review of Systems Review of Systems: CONSTITUTIONAL: Patient denies fevers, chills, sweats and weight changes. EYES: Patient denies any visual symptoms. EARS, NOSE, AND THROAT: No difficulties with hearing. No symptoms of rhinitis or sore throat. CARDIOVASCULAR: Patient denies chest pains, palpitations, orthopnea and paroxysmal nocturnal dyspnea. RESPIRATORY: shortness of breath GI: No nausea, vomiting, diarrhea, constipation, abdominal pain, hematochezia or melena. : No urinary hesitancy or dribbling. No nocturia or urinary frequency. No abnormal urethral discharge. MUSCULOSKELETAL: No myalgias or arthralgias. NEUROLOGIC: No chronic headaches, no seizures. Patient denies numbness, tingling or weakness. PSYCHIATRIC: Patient denies problems with mood disturbance. No problems with anxiety. ENDOCRINE: No excessive urination or excessive thirst. DERMATOLOGIC: Patient denies any rashes or skin changes. Physical Exam 2 Physical Exam: Gen: A&O 3 NAD, large body habitus HEENT: NCAT, EOMI, not icteric. External ears normal. No rhinorrhea. Moist mucous membranes. Neck: Supple, full range of motion, no observable masses, No meningeal sign. Lungs: expiratory wheezing noted CV: RRR, no edema. Abdomen: Soft, nondistended, No rebound tenderness. MSK: No joint swelling, no redness. Skin: No rashes, petechiae, lesions. Normal color per patient. Neuro: Normal Gait, Grossly intact. Psych: Appropriate for situation. Results & Data Results & Data Vital Signs (Past 12 Hours) Vital Signs Temp Pulse Pulse Resp BP BP Pulse Ox 12/11/24 12:03 36.6 C 100 H 22 115/68 96 12/11/24 09:30 12/11/24 07:56 36.5 C 100 H 18 129/71 98 12/11/24 07:00 97 H 12/11/24 03:42 36.7 C 99 H 19 111/68 97 O2 Del Method O2 Flow Rate 12/11/24 12:03 Nasal Cannula 2 12/11/24 09:30 Nasal Cannula 12/11/24 07:56 Room Air 12/11/24 07:00 12/11/24 03:42 Nasal Cannula 2 Laboratory Results -personally reviewed, stable Hgb at 8, no leukocytosis, K of 5.5 given lokelma, significantly elevated glucose despite significant insulin Medications Administered Ascorbic Acid (Ascorbic Acid 500 Mg Tab) 1,000 mg PO QAM [facility] Stop: 01/10/25 08:59 Last Admin: 12/11/24 08:15 Dose: 1,000 mg Documented By: CARSON Aspirin (Aspirin 81 Mg Ectab) 81 mg PO QAM [facility] Stop: 01/10/25 08:59 Last Admin: 12/11/24 08:14 Dose: 81 mg Documented By: BRANDT Cyanocobalamin (Cyanocobalamin (B-12) 500 Mcg Tablet) 500 mcg PO QAM [facility] Stop: 01/10/25 08:59 Last Admin: 12/11/24 08:15 Dose: 500 mcg Documented By: BRANDT Famotidine (Famotidine 40 Mg Tablet) 40 mg PO QAM [facility] Stop: 01/10/25 08:59 Last Admin: 12/11/24 08:14 Dose: 40 mg Documented By: BRANDT Ferrous Sulfate (Ferrous Sulfate 325 Mg Tab) 325 mg PO DAILY [facility] Stop: 01/10/25 08:59 Last Admin: 12/11/24 08:15 Dose: 325 mg Documented By: BRANDT Insulin Aspart (Insulin Aspart Per Unit Charge) 0 units SC ACHS [facility] Stop: 01/10/25 11:44 Last Admin: 12/11/24 11:52 Dose: 54 units Documented By: BRANDT Co-signed By: IZZY Insulin Glargine (Lantus Per Unit Charge) 80 units SC DAILY@1130 [facility] Stop: 01/10/25 11:29 Last Admin: 12/11/24 11:53 Dose: 80 units Documented By: BRANDT Co-signed By: IZZY Insulin Human NPH (Novolin-N (Nph) Per Unit Charge) 35 units SQ DAILY [facility] Stop: 01/10/25 10:44 Last Admin: 12/11/24 11:16 Dose: 35 units Documented By: BRANDT Co-signed By: CHERYL Isosorbide Mononitrate (Isosorbide Ralls Extended Rel 60 Mg Tabcr) 60 [facility] [place] Stop: 01/10/25 08:59 Last Admin: 12/11/24 08:14 Dose: 60 mg Documented By: BRANDT Prednisone (Prednisone 20 Mg Tab) 40 mg PO DAILY [facility] Stop: 01/10/25 10:44 Last Admin: 12/11/24 11:00 Dose: 40 mg Documented By: BRANDT Rosuvastatin Calcium (Rosuvastatin Calcium 20 Mg Tab) 20 mg PO QAM [facility] Stop: 01/10/25 08:59 Last Admin: 12/11/24 08:14 Dose: 20 mg Documented By: BRANDT Umeclidinium/Vilanterol (Umeclidinium/Vilanterol 62.5/25mcg 7 Puffs/Inhaler) 1 puffs INH DAILY [facility] Stop: 01/10/25 08:59 Last Admin: 12/11/24 08:15 Dose: 1 puffs Documented By: BRANDT Vitamin D (Cholecalciferol 25 Mcg (1000 Units) Tab) 25 mcg PO QAM [facility] Stop: 01/10/25 08:59 Last Admin: 12/11/24 08:14 Dose: 25 mcg Documented By: BRANDT Warfarin Sodium (Warfarin Sod 5 Mg Tab) 5 mg PO DAILY@1600 [facility] Stop: 01/09/25 15:59 Last Admin: 12/10/24 15:33 Dose: 5 mg Documented By: ANGELINA (4) Coronary artery disease Coronary Disease-Associated Artery/Lesion type: unspecified vessel or lesion type [place] vs. transplanted heart: [place] heart Associated angina: unspecified whether angina present Qualified Code(s): I25.10 - Atherosclerotic heart disease of [place] coronary artery without angina pectoris
[2024-12-11] MEDS ORDERED: LANTUS PER UNIT CHARGE SC SCH (14:00)
[2024-12-11 14:40] LABS: BUN Creatinine Ratio 29.8 (10-20); Calcium 8.8 mg/dl (8.6-10.3); Creatinine Clr Calc Pharmacy 53.5 ml/min; Magnesium 2.2 mg/dl (1.7-2.4); Phosphorus 3.5 mg/dl (2.5-4.9); Potassium 4.5 mmol/L (3.5-5.1)
[2024-12-11] MEDS: LACTATED RINGER'S 1,000 ML IV SCH (14:57)
--- NOTE | 2024-12-11 15:45 | Pharmacy Report ---
Pharmacy Glycemic Short Note 2 - Date of Service December 11, 2024 - Glycemic Short BSG Results (Last 24 hours): 12/10/24 12/10/24 12/10/24 16:27 20:39 23:53 Glucose POC Glucose 264 H 375 H* 368 H* 12/11/24 12/11/24 12/11/24 06:14 07:20 07:21 Glucose 407 H* POC Glucose 403 H* 395 H* 12/11/24 12/11/24 12/11/24 11:22 13:34 13:56 Glucose 349 H* POC Glucose 483 H* 408 H* 12/11/24 15:13 Glucose POC Glucose 307 H* OUTPATIENT ANTIDIABETIC REGIMEN: * NovoLog pump * Basal 7.2 units/hr 00-06, 8 units/hr 06-12, 8.9 units/hr 12-00 * Bolus 25 units with breakfast, 45 units with lunch, and 40 units with supper, CF 10 * metformin ASSESSMENT: * Graciela is a 74 year old female admitted with shortness of breath and a history of insulin dependent type 2 diabetes mellitus. Pharmacy has been consulted to assist with glycemic management * Decision was made to transition off the insulin pump yesterday, BSGs trending up after administration of methylprednisolone 125mg IV yesterday, given Lantus based on previous admissions, was not clear how steroid reactive BSGs would be based on previous admissions. Tightened NovoLog this AM and gave a 1 time IV regular bolus to help cover. * BSGs exhibiting significant steroid reactivity, and continued to trend up this AM into lunch time. No ongoing IV steroids orders, but prednisone 40mg started late this morning. Gave an additional 0.4 units/kg of insulin NPH to cover steroid induced hyperglycemia. * Correction factor based on outpatient correction factor, Carbohydrate ratio tightened from previous admissions with steroid administration. * Discussed glycemic management with kathy Holloway to start an insulin drip if needed, but BSGs finally trending down and hopefully can avoid it. PLAN FOR INPATIENT GLYCEMIC CONTROL: * Hold outpatient oral diabetes medications * Basal insulin * Lantus 80 units SQ QDL (lunchtime to ease pump transition at discharge) * Lantus 0-60 units SQ HS based on BSG (see eMAR for additional details) * Insulin NPH 35 units SQ daily with prednisone * Bolus insulin * NovoLog per scale ACHS or Q6hrs while NPO * Goal Range: Low 110 mg/dL - High 140 mg/dL * Correction Factor: 10 mg/dL/unit * Nutritional / Prandial insulin per carb ratio of 1 unit per 2 grams CHO consumed
[2024-12-12 06:40] LABS: Hematocrit (blood only) 25.8 % (37.0-47.0); Hemoglobin 7.8 g/dl (12.0-16.0); Mean Corpuscular Hemoglobin 25.9 pg (25.0-34.0); Mean Corpuscular Hgb Conc 30.2 g/dL (32.0-36.0); Mean Corpuscular Volume 85.7 fL (80.0-100.0); Mean Platelet Volume 10.9 fL (9.4-12.4); Platelet Count 170 K/uL (130-400); RDW Coefficient of Variation 17.1 % (11.5-14.5); RDW Standard Deviation 53.1 fL (36.4-46.3); Red Blood Count 3.01 M/uL (4.20-5.40); White Blood Count 7.69 K/ul (4.8-10.8)
[2024-12-12 07:01] LABS: Albumin Globulin Ratio 1.1 (0.9-2); Albumin Level 3.3 gm/dl (3.4-5.0); BUN Creatinine Ratio 34.3 (10-20); Bilirubin,Total 0.4 mg/dl (0.2-1.0); Calcium 8.7 mg/dl (8.6-10.3); Creatinine Clr Calc Pharmacy 54.5 ml/min; Globulin 2.9 gm/dl (2.5-4.0); Magnesium 2.3 mg/dl (1.7-2.4); Phosphorus 3.6 mg/dl (2.5-4.9); Potassium 4.7 mmol/L (3.5-5.1); Total Protein 6.2 gm/dl (6.0-8.3)
--- NOTE | 2024-12-12 09:47 | Cardiology Progress Note ---
Date of Service December 12, 2024 Assessment & Plan (1) Acute on chronic diastolic heart failure: Plan: * Patient endorses symptoms of dyspnea on exertion without chest discomfort. * Mild troponin elevation, 74 -->89-->65-->49.3 pg /ml, relatively flat sabiha * Has substrate for demand ischemia with known chronic total occlusion of the right coronary artery * Hyperkalemia improved * Holding diuretics, seem to actually improve with ambar IV Fluids on 12/11 and elevated lactate level noted. Denies cough or dysuria. * Agree w/ oxygen, prednisone, inhaled bronchodilators * Continue metoprolol, aspirin, isosorbide mononitrate, rosuvastatin-Medical management for underlying coronary heart disease (2) Prolonged QT interval: Plan: * History of torsades de pointes. Previous treatment with sertraline, tr azodone, Lyrica discontinued during hospital stay in September, and not resumed. * Avoid QT prolonging agents * Repeat magnesium level AML 12/12/2024 * Bradycardia noted during past admission when the torsades occurred, will cautiously increase metoprolol succinate to 12.5 mg twice daily * Although patient's history is notable for "permanent "atrial fibrillation, telemetry and EKG today reveal sinus rhythm/sinus tachycardia with frequent PACs (3) Chronic atrial fibrillation: Plan: * As noted. Currently in SR * H/o bradycardia * metoprolol cautiously increased to 12.5 mg BID with ventricular rates improved from 100s to 70s * continue warfarin, goal INR 23 Admission and Anticipated Discharge Date Admission Date: December 10, 2024 Subjective Patient seen in cardiology follow up. Now on supplemental oxygen and 1 l/m, but is sitting in the bedside chair and much more awake and energetic than yesterday. States breathing is improved. Review of Systems Constitutional: no fever and no chills Cardiovascular: no chest pain and no dyspnea Gastrointestinal: no abdominal pain, no nausea and no vomiting Genitourinary: no dysuria and no difficulty urinating Physical Exam Physical Exam: Temp Pulse Resp BP Pulse Ox O2 Del Method O2 Flow Rate 36.4 C L 87 19 118/66 99 Nasal Cannula 1 12/12/24 07:15 12/12/24 07:15 12/12/24 07:15 12/12/24 07:15 12/12/24 07:15 12/12/24 08:01 12/12/24 08:01 General: no acute distress and stated age Eyes: conjunctiva are pink and non-injected, sclera clear Neck: normal jugular venous pulse, no hepatojugular reflux Chest: normal shape and normal respiratory effort Lungs: Mildly decreased breath sounds at the bases Cardiac Exam: -Tachycardic, regular rhythm, 2/6 systolic murmur heard best at the right sternal border Abdomen: abdomen soft, non-tender, no abnormal masses and no hepatosplenomegaly Musculoskeletal: no gait disturbance, no weakness Extremities: no edema and no cyanosis Neuro:awake, conversant, follows commands, no focal motor deficits Psych: appropriate affect and insight. Results & Data Vital Signs (Past 12 Hours) Vital Signs Temp Pulse Pulse Resp BP Pulse Ox O2 Del Method 12/12/24 08:01 Nasal Cannula 12/12/24 07:15 36.4 C L 87 19 118/66 99 Nasal Cannula 12/12/24 04:05 89 100 12/12/24 03:13 36.8 C 89 22 120/66 98 CPAP 12/12/24 01:24 Nasal Cannula, CPAP 12/11/24 23:02 36.8 C 91 H 16 112/66 95 Nasal Cannula 12/11/24 22:46 96 H 97 12/11/24 22:05 96 H O2 Flow Rate 12/12/24 08:01 1 12/12/24 07:15 2 12/12/24 04:05 2 12/12/24 03:13 12/12/24 01:24 2 12/11/24 23:02 2 12/11/24 22:46 2 12/11/24 22:05 Laboratory Results Cardiac Enzymes 12/12/24 Range/Units 05:56 AST 20 (13-39) U/L CBC 12/12/24 Range/Units 05:56 WBC 7.69 (4.8-10.8) K/ul RBC 3.01 L (4.20-5.40) M/uL Hgb 7.8 L (12.0-16.0) g/dl Hct 25.8 L (37.0-47.0) % Plt Count 170 (130-400) K/uL Comprehensive Metabolic Panel 12/11/24 12/12/24 Range/Units 13:56 05:56 Sodium 134 L 136 (136-145) mmol/L Potassium 4.5 4.7 (3.5-5.1) mmol/L Chloride 100 103 (98-107) mmol/L Carbon Dioxide 27 33 H (21-32) mmol/L BUN 31 H 35 H (6-23) mg/dl Creatinine 1.04 1.02 (0.6-1.2) mg/dl Glucose 349 H* 309 H* (70-99(Fasting)) mg/dl Calcium 8.8 8.7 (8.6-10.3) mg/dl AST 20 (13-39) U/L ALT 17 (7-52) U/L Alkaline Phosphatase 93 (34-104) U/L Total Protein 6.2 (6.0-8.3) gm/dl Albumin 3.3 L (3.4-5.0) gm/dl Intake and Output 12/11/24 12/12/24 12/12/24 22:59 06:59 14:59 Intake Total 400 / 1400 1000 / 1400 Balance 400 / 1400 1000 / 1400 Intake: IV 1000 / 1000 Lactated Ringer's 1,000 ml @ 80 1000 / 1000 mls/hr IV .[id number] [facility] Rx#: [id number] Oral 400 / 400 Other: # Unmeasured Voids 1 1 Weight 95.5 kg Weight Measurement Method Built in [facility] Diagnostic Findings Telemetry reveals SR in the 80s EKG performed 12/12/24, interpreted independently: SR at 89 bpm with PACs. Inferolateral repolarization abnormalities, unchanged compared to prior. QTc prolonged at 493 ms (but stable)
--- NOTE | 2024-12-12 12:09 | Hospitalist Progress Note ---
Date of Service December 12, 2024 Assessment & Plan (1) SOB (shortness of breath): Plan: -likely combination of HFpEF and bronchospasm in setting of HFpEF Plan: -continue prednisone 40 mg x5 days (day 2/5) -duonebs, now scheduled per patient/ request -2-step ordered for home going oxygen -home CPAP ordered -cardiology consulted, appreciate recs -goal oxygen 90% (2) Acute on chronic diastolic heart failure: Plan: -appreciate cardiology input (3) Nonspecific ST-T wave electrocardiographic changes: Plan: -appreciate cards input (4) Coronary artery disease: Plan: -noted (5) COPD (chronic obstructive pulmonary disease): Plan: -see above (6) Chronic atrial fibrillation: Plan: -Rate controlled on metoprolol -Anticoagulated on Coumadin, INR 2.1. 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 Continue PAID SEARCH ANALYST dose Coumadin 5 mg daily (9) Insulin dependent type 2 diabetes mellitus: Plan: -glucose improved, relatively controlled at this time Plna: -appreciate pharmacy consult for assistance with glucose management (10) Anemia: Plan: Hgb 8.9, at recent baseline -Continue to monitor CBC I spent a total of 50 minutes in direct patient care, including [id number] time with the patient and/or family, reviewing medical records, ordering and reviewing diagnostic tests, and coordinating care with other healthcare providers. This time includes: history taking, physical examination, medical decision making, counseling, ECG interpretation, imaging interpretation, lab interpretation, orders, and education, excluding time spent in the performance of separately billed services. Admission and Anticipated Discharge Date Admission Date: December 10, 2024 Subjective Patient seen and examined at bedside. Patient doing much better today. Sitting comfortably on room air at this time. Would like scheduled duonebs, will do 2- step to determine home oxygen needs. Review of Systems Review of Systems: CONSTITUTIONAL: Patient denies fevers, chills, sweats and weight changes. EYES: Patient denies any visual symptoms. EARS, NOSE, AND THROAT: No difficulties with hearing. No symptoms of rhinitis or sore throat. CARDIOVASCULAR: Patient denies chest pains, palpitations, orthopnea and paroxysmal nocturnal dyspnea. RESPIRATORY: shortness of breath GI: No nausea, vomiting, diarrhea, constipation, abdominal pain, hematochezia or melena. : No urinary hesitancy or dribbling. No nocturia or urinary frequency. No abnormal urethral discharge. MUSCULOSKELETAL: No myalgias or arthralgias. NEUROLOGIC: No chronic headaches, no seizures. Patient denies numbness, tingling or weakness. PSYCHIATRIC: Patient denies problems with mood disturbance. No problems with anxiety. ENDOCRINE: No excessive urination or excessive thirst. DERMATOLOGIC: Patient denies any rashes or skin changes. Physical Exam Physical Exam: Gen: A&O 3 NAD, large body habitus HEENT: NCAT, EOMI, not icteric. External ears normal. No rhinorrhea. Moist mucous membranes. Neck: Supple, full range of motion, no observable masses, No meningeal sign. Lungs: expiratory wheezing noted, improved from yesterday CV: RRR, no edema. Abdomen: Soft, nondistended, No rebound tenderness. MSK: No joint swelling, no redness. Skin: No rashes, petechiae, lesions. Normal color per patient. Neuro: Normal Gait, Grossly intact. Psych: Appropriate for situation. Results & Data Results & Data Vital Signs (Past 12 Hours) Vital Signs Temp Pulse Pulse Resp BP BP Pulse Ox 12/12/24 10:39 36.6 C 82 19 100/64 94 12/12/24 10:34 88 12/12/24 08:01 12/12/24 07:15 36.4 C L 87 19 118/66 99 12/12/24 04:05 89 100 12/12/24 03:13 36.8 C 89 22 120/66 98 12/12/24 01:24 O2 Del Method O2 Flow Rate 12/12/24 10:39 Room Air 12/12/24 10:34 12/12/24 08:01 Room Air 12/12/24 07:15 Nasal Cannula 2 12/12/24 04:05 2 12/12/24 03:13 CPAP 12/12/24 01:24 Nasal Cannula, CPAP 2 Laboratory Results -personally reviewed, glucose elevated this morning, downtrended lactic acid with fluids, hemodynamically improved Medications Administered Ascorbic Acid (Ascorbic Acid 500 Mg Tab) [facility] [place] [facility] [place]: 01/10/25 08:59 Last Admin: 12/12/24 07:56 Dose: 1,000 mg Documented By: Admin: 12/11/24 08:15 Dose: 1,000 mg Documented By: BRANDT Aspirin (Aspirin 81 Mg Ectab) 81 [facility] [place]: 01/10/25 08:59 Last Admin: 12/12/24 07:56 Dose: 81 mg Documented By: Admin: 12/11/24 08:14 Dose: 81 mg Documented By: BRANDT Cyanocobalamin (Cyanocobalamin (B-12) 500 Mcg Tablet) 500 mcg PO [facility] Stop: 01/10/25 08:59 Last Admin: 12/12/24 07:57 Dose: 500 mcg Documented By: Admin: 12/11/24 08:15 Dose: 500 mcg Documented By: BRANDT Famotidine (Famotidine 40 Mg Tablet) 40 mg PO [facility] Stop: 01/10/25 08:59 Last Admin: 12/12/24 07:57 Dose: 40 mg Documented By: Admin: 12/11/24 08:14 Dose: 40 mg Documented By: BRANDT Ferrous Sulfate (Ferrous Sulfate 325 Mg Tab) 325 mg PO DAILY [facility] Stop: 01/10/25 08:59 Last Admin: 12/12/24 07:57 Dose: 325 mg Documented By: Admin: 12/11/24 08:15 Dose: 325 mg Documented By: BRANDT Insulin Aspart (Insulin Aspart Per Unit Charge) 0 units SC [facility] Stop: 01/10/25 11:44 Last Admin: 12/12/24 08:26 Dose: 63 units Documented By: NIRMAL Co-signed By: IZZY Admin: 12/11/24 21:32 Dose: 18 units Documented By: RYNE Co-signed By: YESSICA Admin: 12/11/24 17:19 Dose: 49 units Documented By: BRANDT Co-signed By: IZZY Admin: 12/11/24 11:52 Dose: 54 units Documented By: BRANDT Co-signed By: IZZY Insulin Glargine (Lantus Per Unit Charge) 0 units SC [facility]; Protocol Stop: 01/10/25 20:59 Last Admin: 12/11/24 21:32 Dose: 60 units Documented By: RYNE Co-signed By: YESSICA Insulin Human NPH (Novolin-N (Nph) Per Unit Charge) 35 units SQ DAILY [facility] Stop: 01/10/25 10:44 Last Admin: 12/12/24 08:41 Dose: 35 units Documented By: NIRMAL Co-signed By: IZZY Admin: 12/11/24 11:16 Dose: 35 units Documented By: BRANDT Co-signed By: CHERYL Isosorbide Mononitrate (Isosorbide Ross Extended Rel 60 Mg Tabcr) 60 mg PO QAM [facility] Stop: 01/10/25 08:59 Last Admin: 12/12/24 07:58 Dose: 60 mg Documented By: Admin: 12/11/24 08:14 Dose: 60 mg Documented By: BRANDT Metoprolol Succinate (Metoprolol Succ 25mg Ext Rel Tab) 12.5 mg PO BID [facility] Stop: 01/10/25 20:59 Last Admin: 12/12/24 07:54 Dose: 12.5 mg Documented By: Admin: 12/11/24 21:33 Dose: 12.5 mg Documented By: RYNE Prednisone (Prednisone 20 Mg Tab) 40 mg PO DAILY [facility] Stop: 01/10/25 10:44 Last Admin: 12/12/24 07:55 Dose: 40 mg Documented By: Admin: 12/11/24 11:00 Dose: 40 mg Documented By: BRANDT Rosuvastatin Calcium (Rosuvastatin Calcium 20 Mg Tab) 20 mg PO QAM [facility] Stop: 01/10/25 08:59 Last Admin: 12/12/24 07:57 Dose: 20 mg Documented By: Admin: 12/11/24 08:14 Dose: 20 mg Documented By: BRANDT Umeclidinium/Vilanterol (Umeclidinium/Vilanterol 62.5/25mcg 7 Puffs/Inhaler) 1 puffs INH DAILY [facility] Stop: 01/10/25 08:59 Last Admin: 12/12/24 07:58 Dose: 1 puffs Documented By: Admin: 12/11/24 08:15 Dose: 1 puffs Documented By: BRANDT Vitamin D (Cholecalciferol 25 Mcg (1000 Units) Tab) 25 mcg PO QAM [facility] Stop: 01/10/25 08:59 Last Admin: 12/12/24 07:57 Dose: 25 mcg Documented By: Admin: 12/11/24 08:14 Dose: 25 mcg Documented By: BRANDT Warfarin Sodium (Warfarin Sod 5 Mg Tab) 5 mg PO DAILY@1600 [facility] Stop: 01/09/25 15:59 Last Admin: 12/11/24 17:10 Dose: 5 mg Documented By: Admin: 12/10/24 15:33 Dose: 5 mg Documented By: ANGELINA (4) Coronary artery disease Coronary Disease-Associated Artery/Lesion type: unspecified vessel or lesion type [place] vs. transplanted heart: [place] heart Associated angina: unspecified whether angina present Qualified Code(s): I25.10 - Atherosclerotic heart disease of [place] coronary artery without angina pectoris
[2024-12-12] MEDS: LANTUS PER UNIT CHARGE SC SCH (12:14)
[2024-12-12] MEDS: INSULIN HUMAN REGULAR PER UNIT 10 UNITS in SYRINGE 9.9 ML IV ONE (12:15)
[2024-12-12] MEDS: ALBUT/IPRATROP 3MG/0.5MG NEB 3 ML VIAL NEB SCH (12:30)
--- NOTE | 2024-12-12 14:47 | Pharmacy Report ---
Pharmacy Glycemic Short Note 2 - Date of Service December 12, 2024 - Glycemic Short BSG Results (Last 24 hours): 12/11/24 12/11/24 12/11/24 13:56 15:13 16:14 Glucose 349 H* POC Glucose 307 H* 295 H 12/11/24 12/12/24 12/12/24 20:51 05:56 07:13 Glucose 309 H* POC Glucose 314 H* 312 H* 12/12/24 12/12/24 12/12/24 07:14 11:18 11:20 Glucose POC Glucose 314 H* 349 H* 355 H* OUTPATIENT ANTIDIABETIC REGIMEN: * NovoLog pump * Basal 7.2 units/hr 00-06, 8 units/hr 06-12, 8.9 units/hr 12-00 * Bolus 25 units with breakfast, 45 units with lunch, and 40 units with supper, CF 10 * metformin ASSESSMENT: 12/12 * Graciela received 352 units of insulin yesterday (140 basal, 35 NPH, 10 IV regular, and 167 bolus) * Fasting BSG this AM still above goal range this AM, but improved, up to 30% basal increase today with bedtime dose based on BSG. * NovoLog significantly tightened today, expect BSGs to trend down this evening as previous parameters did lower BSGs significantly. Regular IV bolus given with lunch to help augment subcutaneous insulin. Low threshold to start an insulin drip if BSGs don't come down this evening. * She continues on prednisone 40mg daily 12/11 * Graciela is a 74 year old female admitted with shortness of breath and a history of insulin dependent type 2 diabetes mellitus. Pharmacy has been consulted to assist with glycemic management * Decision was made to transition off the insulin pump yesterday, BSGs trending up after administration of methylprednisolone 125mg IV yesterday, given Lantus based on previous admissions, was not clear how steroid reactive BSGs would be based on previous admissions. Tightened NovoLog this AM and gave a 1 time IV regular bolus to help cover. * BSGs exhibiting significant steroid reactivity, and continued to trend up this AM into lunch time. No ongoing IV steroids orders, but prednisone 40mg started late this morning. Gave an additional 0.4 units/kg of insulin NPH to cover steroid induced hyperglycemia. * Correction factor based on outpatient correction factor, Carbohydrate ratio tightened from previous admissions with steroid administration. * Discussed glycemic management with kathy Holloway to start an insulin drip if needed, but BSGs finally trending down and hopefully can avoid it. PLAN FOR INPATIENT GLYCEMIC CONTROL: * Hold outpatient oral diabetes medications * Basal insulin * Lantus 80 units SQ QDL (lunchtime to ease pump transition at discharge) * Lantus 0-60 units SQ HS based on BSG (see eMAR for additional details) * Insulin NPH 35 units SQ daily with prednisone * Bolus insulin * NovoLog per scale ACHS or Q6hrs while NPO * Goal Range: Low 110 mg/dL - High 140 mg/dL * Correction Factor: 10 mg/dL/unit * Nutritional / Prandial insulin per carb ratio of 1 unit per 2 grams CHO consumed
--- NOTE | 2024-12-12 22:34 | Electrocardiogram Report ---
Test Reason : Blood Pressure : */* mmHG Vent. Rate : 96 BPM Atrial Rate : 96 BPM P-R Int : 174 ms QRS Dur : 90 ms QT Int : 388 ms P-R-T Axes : 65 45 -80 degrees QTcB Int : 490 ms Sinus rhythm with Premature atrial complexes Prolonged QT Abnormal ECG When compared with ECG of 10-Dec-2024 10:44, Premature atrial complexes are now Present Confirmed by Omar Meyers ([id number]) on 12/12/2024 10:34:02 PM Referred By: REFERRED SELF Confirmed By: Omar Meyers
--- NOTE | 2024-12-12 22:35 | Electrocardiogram Report ---
Test Reason : Blood Pressure : */* mmHG Vent. Rate : 89 BPM Atrial Rate : 89 BPM P-R Int : 148 ms QRS Dur : 94 ms QT Int : 406 ms P-R-T Axes : 28 45 -58 degrees QTcB Int : 493 ms Sinus rhythm with Premature atrial complexes Septal infarct , age undetermined Prolonged QT Abnormal ECG When compared with ECG of 11-Dec-2024 05:42, Septal infarct is now Present Confirmed by Omar Meyers ([id number]) on 12/12/2024 10:34:47 PM Referred By: REFERRED SELF Confirmed By: Omar Meyers
[2024-12-13] MEDS: INSULIN ASPART PER UNIT CHARGE SC SCH (01:20)
[2024-12-13] MEDS: CARBOHYDRATES FOR HYPOGLYCEMIA PO PRN (03:58)
[2024-12-13 07:32] LABS: Calcium 8.9 mg/dl (8.6-10.3); Creatinine Clr Calc Pharmacy 59.4 ml/min; Magnesium 2.3 mg/dl (1.7-2.4); Phosphorus 3.1 mg/dl (2.5-4.9); Potassium 3.9 mmol/L (3.5-5.1)
[2024-12-13 08:36] VITALS: RESP 20; TEMP 98.1; O2SAT 97
[2024-12-13 10:44] VITALS: BP 116/65; PULSE 104
--- NOTE | 2024-12-13 12:08 | Discharge Summary ---
Discharge Summary Date of Service December 13, 2024 Principal Dx & Hospital Course #1 = Principal Diagnosis (1) SOB (shortness of breath): -likely combination of HFpEF and bronchospasm in setting of HFpEF Plan: -continue prednisone 40 mg x5 days (day 2/5) -martha, now scheduled per patient/ request -2- step performed does not require oxygen at home -PT/OT cleared patient for homegoing -cardiology consulted, appreciate recs -goal oxygen 88% (2) Acute on chronic diastolic heart failure: -appreciate cardiology input (3) Nonspecific ST-T wave electrocardiographic changes: -appreciate cards input (4) Coronary artery disease: -noted (5) COPD (chronic obstructive pulmonary disease): -see above (6) Chronic atrial fibrillation: -Rate controlled on metoprolol -Anticoagulated on Coumadin, INR 2.1. 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 POLISHING WHEEL SETTER dose Coumadin 5 mg daily (8) Insulin dependent type 2 diabetes mellitus: -glucose improved, relatively controlled at this time Plna: -appreciate pharmacy consult for assistance with glucose management -will restart insulin pump at home (9) Anemia: Hgb 8.9, at recent baseline -Continue to monitor CBC Notes For Next Care Provider 74-year-old female with PMH DM type II on insulin pump, diabetic polyneuropathy, dyslipidemia, COPD, chronic atrial fibrillation anticoagulated on Coumadin, CAD, chronic HFpEF, GERD, history of DVT and PE, breast cancer, anxiety, depression, and other problems listed below who presents to the ED for evaluation of shortness of breath. On medicine, treated for heart failure exaccerbation with lasix, then treated for COPD exaccerbation with steroids with significant improvement. 2 step, PT/OT performed without any home going needs. Discussed with patient/ need for utilizing home health for medication compliance. Discussed need for tighter glucose control at home with insulin pump, clinical trial educator consulted. On 12/13/2024 patient medically stable for discharge home. To do: [ ] f/u with PCP for tighter glucose control with pump [ ] finish course of steroids Medication Changes From Visit -see below Admission HPI Per Admitting Provider 74-year-old female with PMH DM type II on insulin pump, diabetic polyneuropathy, dyslipidemia, COPD, chronic atrial fibrillation anticoagulated on Coumadin, CAD, chronic HFpEF, GERD, history of DVT and PE, breast cancer, anxiety, depression, and other problems listed below who presents to the ED for evaluation of shortness of breath. Patient reports a longstanding history of shortness of breath due to underlying COPD. Patient reports that she had been doing fairly well over the past week however developed worsening shortness of breath and lower extremity edema a couple of days ago. Patient is followed by [facility] at home and provider increased patient's Lasix to 40 mg daily ( from 20 mg daily) x 3 days, today was to be the last day of increased dose. Patient reports feeling improved yesterday however when she woke up this morning, she felt very dizzy and short of breath. Patient then presented to the ED for further evaluation. She denies chest pain and palpitations. No cough or sputum production. Had some mild nausea but denies vomiting or abdominal pain. No urinary symptoms. In the ED, patient is saturating well on room air, CXR is unremarkable. proBNP 471. HS troponin 74 -> 89. EKG shows worsening T wave inversions in the inferior leads and new T wave inversions in the lateral leads. Patient was given nebulizer treatment and Solu-Medrol 125 mg. Discharge Exam Gen: A&O 3 NAD, large body habitus HEENT: NCAT, EOMI, not icteric. External ears normal. No rhinorrhea. Moist mucous membranes. Neck: Supple, full range of motion, no observable masses, No meningeal sign. Lungs: expiratory wheezing noted, improved from yesterday CV: RRR, no edema. Abdomen: Soft, nondistended, No rebound tenderness. MSK: No joint swelling, no redness. Skin: No rashes, petechiae, lesions. Normal color per patient. Neuro: Normal Gait, Grossly intact. Psych: Appropriate for situation. Updated Medication List Medication Instructions Recorded Confirmed Type warfarin 5 mg tablet 5 mg PO QPM 01/12/20 12/10/24 History cyanocobalamin (vitamin B-12) 500 mcg sublingual QAM 09/21/22 12/10/24 History 1,000 mcg sublingual tablet albuterol sulfate 90 mcg/actuation 2 puff inhalation QID PRN 10/29/24 12/10/24 Rx aerosol inhaler (Ventolin HFA) Shortness Of Breath Or Wheezing #6.7 grams aspirin 81 mg tablet,delayed 81 mg PO QAM #30 tabs 10/29/24 12/10/24 Rx release cholecalciferol (vitamin D3) 25 1,000 unit PO QAM #30 caps 10/29/24 12/10/24 Rx mcg (1,000 unit) capsule fluticasone propionate 50 2 spray intranasal QAM #1 mL 10/29/24 12/10/24 Rx mcg/actuation nasal spray,suspension (Flonase Allergy Relief) furosemide 20 mg tablet 20 mg PO QAM #30 tabs 10/29/24 12/10/24 Rx isosorbide mononitrate 60 mg 60 mg PO QAM #30 tabs 10/29/24 12/10/24 Rx tablet,extended release 24 hr metoprolol succinate 25 mg 12.5 mg (1/2 x 25 mg) PO QAM #15 10/29/24 12/10/24 Rx tablet,extended release 24 hr tabs multivitamin (Daily-Moiz tablet) 1 tab PO QAM #30 tabs 10/29/24 12/10/24 Rx rosuvastatin 20 mg tablet 20 mg PO QAM #30 tabs 10/29/24 12/10/24 Rx ascorbic acid (vitamin C) 1,000 mg 1,000 mg PO QAM 12/10/24 12/10/24 History tablet (Vitamin C) ferrous sulfate 325 mg (65 mg 325 mg PO DAILY 12/10/24 12/10/24 History iron) tablet insulin aspart U-100 100 unit/mL See Rx Instructions .Route .COMPLEX 12/10/24 12/10/24 History subcutaneous solution (Novolog U-100 Insulin aspart) ipratropium 0.5 mg-albuterol 3 mg 3 ml inhalation UD 12/10/24 12/10/24 History (2.5 mg base)/3 mL nebulization soln metformin 1,000 mg tablet 1,000 mg PO BID 12/10/24 12/10/24 History potassium chloride 20 mEq 20 meq PO DAILY 12/10/24 12/10/24 History tablet,extended release umeclidinium 62.5 mcg-vilanterol 1 inh inhalation DAILY 12/10/24 12/10/24 History 25 mcg/actuation powdr for inhalation (Anoro Ellipta) famotidine 40 mg tablet 40 mg PO QAM 30 days #30 tabs 12/13/24 Rx prednisone 20 mg tablet 40 mg (2 x 20 mg) PO DAILY 3 days 12/13/24 Rx #6 tabs Hospital Stay Data Consultations 12/10/24 12:19 ED Decision to Admit Stat 12/10/24 13:43 Consult Cardiology Routine Pending Results Patient Have Any Pending Studies at Discharge: No Discharge Instructions Given to Patient (Per Discharging Provider) 1. Please finish course of steroids. 2. Take medications as prescribed. 3. Please utilize your resources in regards to home healthcare. Total Time Total Time Spent Total Time Spent (In Minutes): I spent a total of 35 minutes in direct patient care, including [id number] time with the patient and/or family, reviewing medical records, ordering and reviewing diagnostic tests, and coordinating care with other healthcare providers. This time includes: history taking, physical examination, medical decision making, counseling, ECG interpretation, imaging interpretation, lab interpretation, orders, and education, excluding time spent in the performance of separately billed services.
== END 2024-12-13 12:10 | disposition home or self-care (01) | DRG 291 ==
LOC: ED 10:33 → 2S 12:48 → SUATTDRO 12:48 → 2S 13:23

== ENCOUNTER 2025-06-22 12:07 | Inpatient (IN) ==
[2025-06-22 14:02] LABS: Hematocrit (blood only) 37.9 % (37.0-47.0); Hemoglobin 13.4 g/dL (12.0-16.0); Immature Granulocytes # (auto) 0.05 K/uL (0.01-0.20); Immature Granulocytes % (auto) 0.4 %; Mean Corpuscular Hemoglobin 30.9 pg (25.0-34.0); Mean Corpuscular Volume 87.3 fL (80.0-100.0); Platelet Count 205 K/uL (130-400); RDW Standard Deviation 43.5 fL (36.4-46.3); Red Blood Count 4.34 M/uL (4.20-5.40); White Blood Count 12.97 K/ul (4.8-10.8)
[2025-06-22 14:27] LABS: Alanine Aminotransferase 15 U/L (7-52); Albumin Globulin Ratio 0.9 (0.9-2); Albumin Level 3.6 gm/dl (3.4-5.0); Alkaline Phosphatase 100 U/L (34-104); Bilirubin,Total 1.4 mg/dl (0.2-1.0); Chloride 93 mmol/L (98-107); Potassium 4.5 mmol/L (3.5-5.1)
[2025-06-22 15:00] LABS: INR 1.5 (0.9-1.1); Prothrombin Time 15.5 Seconds (9.0-12.0)
--- NOTE | 2025-06-22 15:00 | Emergency Department Note ---
History of Present Illness General Chief complaint: Illness Stated complaint: SOD VOMITING DIZZY Time Seen by Provider: 06/22/25 14:25 History of Present Illness Maximum Pain Intensity: 5 Patient is a 75-year-old female with past medical history significant for type 2 diabetes on insulin, dyslipidemia, COPD, chronic atrial fibrillation on warfarin, CAD, chronic CHF, GERD, history of DVT and PE, breast cancer, anxiety and depression, among other problems who presents to the emergency department for evaluation of vomiting x 4 days and abdominal pain. Patient provides the history, supplemented by the . She states that she became ill with vomiting about 4 days ago. She has been unable to keep anything down. She did not have any medications to try. She reports abdominal pain, primarily in the right lower quadrant. She denies any diarrhea. No urinary symptoms. She has been getting weak and dizzy when she tries to change positions. reports decreased compliance with her medications over the last couple of days since she has been ill. She denies any chest pain, but reports worsening shortness of breath. She has been wearing her oxygen more at home. She was able to keep an [place] ice down yesterday and a banana and half of a bagel today. She was seen at the [facility] office for her illness and referred to the ED. Home Medications Medication Instructions Recorded Confirmed Type warfarin 5 mg tablet 7.25 mg PO QPM 01/12/20 06/22/25 History cyanocobalamin (vitamin B-12) 1,000 mcg sublingual QAM 09/21/22 06/22/25 History 1,000 mcg sublingual tablet cholecalciferol (vitamin D3) 25 1,000 unit PO QAM #30 caps 10/29/24 06/22/25 Rx mcg (1,000 unit) capsule fluticasone propionate 50 2 spray intranasal QAM #1 mL 10/29/24 06/22/25 Rx mcg/actuation nasal spray,suspension (Flonase Allergy Relief) furosemide 20 mg tablet 20 mg PO QAM #30 tabs 10/29/24 06/22/25 Rx isosorbide mononitrate 60 mg 60 mg PO QAM #30 tabs 10/29/24 06/22/25 Rx tablet,extended release 24 hr metoprolol succinate 25 mg 12.5 mg (1/2 x 25 mg) PO QAM #15 10/29/24 06/22/25 Rx tablet,extended release 24 hr tabs multivitamin (Daily-Moiz tablet) 1 tab PO QAM #30 tabs 10/29/24 06/22/25 Rx rosuvastatin 20 mg tablet 20 mg PO QAM #30 tabs 10/29/24 06/22/25 Rx ascorbic acid (vitamin C) 1,000 mg 1,000 mg PO QAM 12/10/24 06/22/25 History tablet (Vitamin C) ferrous sulfate 325 mg (65 mg 325 mg PO QAM 12/10/24 06/22/25 History iron) tablet insulin aspart U-100 100 unit/mL See Rx Instructions .Route .COMPLEX 12/10/24 06/22/25 History subcutaneous solution (Novolog U-100 Insulin aspart) metformin 1,000 mg tablet 1,000 mg PO BID 12/10/24 06/22/25 History albuterol sulfate 0.63 mg/3 mL 0.63 mg continuous nebulization Q6 06/22/25 06/22/25 History solution for nebulization PRN Wheezing albuterol sulfate 90 mcg/actuation 2 puff inhalation Q6 PRN Shortness 06/22/25 06/22/25 History aerosol inhaler (Ventolin HFA) Of Breath famotidine 40 mg tablet 40 mg PO QAM 06/22/25 06/22/25 History fluticasone fur. 100 mcg-umeclid 1 inh inhalation QAM 06/22/25 06/22/25 History 62.5 mcg-vilant 25 mcg inhalat.powder (Trelegy Ellipta) lorazepam 0.5 mg tablet 0.5 mg PO Q6 PRN Anxiety 06/22/25 06/22/25 History montelukast 10 mg tablet 10 mg PO HS 06/22/25 06/22/25 History nitroglycerin 0.3 mg sublingual 0.3 mg sublingual .EVERY 5 MINUTES 06/22/25 06/22/25 History tablet PRN Chest Pain potassium chloride 10 mEq 10 meq PO QAM 06/22/25 06/22/25 History capsule,extended release quetiapine 25 mg tablet 25 mg PO HS 06/22/25 06/22/25 History Allergies Allergy/AdvReac Type Severity Reaction Status Date / Time alendronate sodium Allergy Severe DIFFICULTY Verified 10/21/24 15:12 BREATHING/BURNING SENSATION esomeprazole Allergy Intermediate Hives Verified 10/21/24 15:12 Past Med/Surg History Problem List (Updated 06/22/25 @ 22:14 by Cj Foreman) Hyperglycemia (Acute) SOL (acute kidney injury) (Acute) Urinary tract infection (Acute) Calculus of right ureter (Acute) Vomiting (Acute) HX: breast cancer Ureteral stone COPD (chronic obstructive pulmonary disease) (Acute) CHF (congestive heart failure) (Acute) GARCIA (dyspnea on exertion) (Acute) Nonspecific ST-T wave electrocardiographic changes Pulmonary hypertension Morbid obesity E coli bacteremia Anxiety Cirrhosis SOB (shortness of breath) Cardiac arrest Prolonged QT interval Torsades de pointes GERD (gastroesophageal reflux disease) Diabetic polyneuropathy Hyperlipidemia Insulin dependent type 2 diabetes mellitus Depression Elevated troponin Acute on chronic diastolic heart failure COPD exacerbation ASCVD (arteriosclerotic cardiovascular disease) HTN (hypertension) Ankle fracture, bimalleolar, closed Anemia Chronic anticoagulation (Chronic) Brittany-prosthetic fracture around prosthetic knee Osteoporosis Coronary artery disease Microvascular angina Medical History COPD (chronic obstructive pulmonary disease) History of pulmonary embolism Chronic atrial fibrillation Benign neoplasm of colon Osteoarthritis History of DVT (deep vein thrombosis) "RLE x 2 in 1980s" 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) "Abnormal left breast mammogram 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 Estrogen receptor positive and progesterone receptor positive Status post lumpectomy with sentinel lymph node biopsy stage [id number] 04/07/2015 Status post completion of radiation therapy 07/21/2015 received 6640 cGy" On 07/25/15 17:54 Jayleen Bates wrote "Abnormal left breast mammogram 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 Estrogen receptor positive and progesterone receptor positive Status post lumpectomy with sentinel lymph node biopsy stage [id number] 04/07/2015 Status post completion of radiation therapy 07/21/2015 received 6640 cGy" On 07/25/15 17:49 Jayleen Bates wrote "Abnormal left breast mammogram 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 Estrogen receptor positive and progesterone receptor positive Status post lumpectomy with sentinel lymph node biopsy stage [id number] 04/07/2015" Surgical History H/O partial mastectomy "left breast 04/2015 with lymph node biopsy" H/O arthroscopic knee surgery H/O colonoscopy History of carpal tunnel surgery S/P cervical spinal fusion S/P dilation and curettage H/O vein stripping Family History Other Breast cancer Diabetes Heart disease Social History Smoking Status: Former smoker Tobacco Type: Cigarettes Second Hand Exposure: No; Do You Dip or Chew Tobacco: No; Hx Alcohol Use: No Hx Substance Use: No Preferred Language: Swedish Communication Ability: Effective Hand Filer Balance Wheel Required: No Beliefs That Will Affect Care: None Current Living Situation: Spouse Current Living Situation Comment: lives at home with and step-son Other Information That Helps Us Care for You: No Feels Safe at Home: Yes Safety Concerns: Feels Safe At This Time Assistive Devices: CPAP, Denture - Upper, Glasses, Oxygen - at Night, Walker and Wheelchair Review of Systems A total of 10 systems reviewed and were otherwise negative Physical Exam Vital Signs Vital Signs - 24 hr 06/22/25 12:16 06/22/25 14:42 06/22/25 14:44 Temperature 37.1 C Temperature Source Temporal Artery Scan Pulse Rate 103 H 97 H Pulse Rate [Apical] 96 H Pulse Rhythm [Apical] Pulse Strength [Apical] Respiratory Rate 22 18 Respiratory Effort / Characteristics Non-Labored Spontaneous Respiratory Depth Normal Respiratory Pattern Regular Blood Pressure 111/71 Blood Pressure [Right Arm] 108/68 Blood Pressure Mean 84 Blood Pressure Mean [Right Arm] 81 Blood Pressure Position [Right Arm] Semi-fowlers Pulse Oximetry 96 97 Oxygen Delivery Method Room Air Room Air Sepsis Recent Fever Within 48 Hours No Sepsis New/Unexplained Change in Mental Status No Sepsis Action Taken by Nursing No Action Required 06/22/25 15:21 06/22/25 17:00 06/22/25 18:43 Temperature Temperature Source Pulse Rate 99 H Pulse Rate [Apical] 103 H 97 H Pulse Rhythm [Apical] Regular Pulse Strength [Apical] Normal Respiratory Rate 20 17 Respiratory Effort / Characteristics Non-Labored Spontaneous Respiratory Depth Normal Respiratory Pattern Blood Pressure Blood Pressure [Right Arm] 130/90 144/88 H Blood Pressure Mean Blood Pressure Mean [Right Arm] 103 106 Blood Pressure Position [Right Arm] Semi-fowlers Pulse Oximetry 98 Oxygen Delivery Method Sepsis Recent Fever Within 48 Hours Sepsis New/Unexplained Change in Mental Status Sepsis Action Taken by Nursing CONSTITUTIONAL: Patient is an obese 75-year-old female who is awake and alert and laying on her side on the gurney in mild distress. EYES: Pupils equal, round, reactive to light and accommodation. EOMs intact without nystagmus. Sclera are anicteric. ENT: Tympanic membranes intact, with normal landmarks. External canals are clear. Oral and nasopharynx are clear. Mucous membranes are moist, no lesions, tongue and gums appear normal. CARDIOVASCULAR: Irregular rate and rhythm, tachycardic around 100. RESPIRATORY: Breath sounds diminished, with decreased inspiratory effort, but no adventitious sounds. GI: Bowel sounds are present. Abdomen is soft, obese, nondistended, tympanic to percussion throughout. There is mild mid right abdominal tenderness to palpation and percussion. No guarding or rebound. MUSCULOSKELETAL: Full range of motion of extremities x 4 with good strength. No cyanosis, edema, joint tenderness or swelling. No deformity. INTEGUMENTARY: No lesions or rash, normal skin turgor. Course Course The patient was seen and assessed as above. External medical records are reviewed. She presents to the emergency department for evaluation of several days of vomiting. She is having right-sided abdominal pain. She was seen at the [facility] in [place] and referred to the ED. IV lock was initiated, laboratory studies were collected. CBC with differential, CMP, lipase, magnesium, troponin, urinalysis, INR were ordered. She was gently eventually hydrated with normal saline solution. CT scan of the abdomen and pelvis and chest x-ray were obtained. Patient history, ED workup and plan reviewed with attending physician, Dr. Mcadams, who is in agreement. Initially patient refused medication for discomfort, but eventually did change her mind and was given Phenergan and morphine IV. Given concerning urinalysis, she was given ceftriaxone 2 g IV. Diagnostics, as interpreted by me: Laboratory studies: Elevated white count at 13,000 with left shift. H&H 13.4 and 37.9. INR 1.5. Hyponatremic with sodium 127, potassium 4.5, chloride 93, BUN and creatinine elevated from baseline at 27 and 1.83 respectively. Glucose elevated 507. No transaminitis. Lipase is not elevated. Troponin mildly elevated at 16.3, but not felt to be indicative of ACS. Lipase is not elevated. Urine microscopy notes glucose, ketones, 2+ blood, is nitrate positive with leukocyte esterase and a large amount of WBCs. She was bacteria noted. Culture is pending. ECG: Atrial fibrillation, 100 bpm. Cardiac monitoring: An order was placed for continuous cardiac monitoring. The monitor shows a atrial fibrillation around the 100s per my interpretation. Imaging studies: Chest x-ray: Stable cardiomegaly. No pulmonary edema. No effusion. No consolidation to suspect pneumonia. CT of the abdomen and pelvis: Mild to moderate right-sided hydroureteronephrosis secondary to an obstructing 6 mm calculus in the right ureter at the L4 level. Air in the right renal collecting system and bladder, instrumentation versus gas-forming organism. Cirrhotic liver noted, no significant ascites. No bowel wall thickening or obstruction. Appendix is normal. The patient was reassessed frequently. All laboratory and diagnostic imaging studies were reviewed with her. I did review the patient with Dr. Calloway, with urology, given the large mid ureteral stone, UTI and SOL. He agrees with admission for IV antibiotics and hydration, but does not feel that there is acute urologic intervention necessary. [facility] Chronic conditions affecting care: COPD, CAD, CHF, nephrolithiasis, chronic anticoagulation Differential diagnosis: GERD, gastritis, esophagitis, peptic ulcer disease, infectious versus inflammatory colitis/enteritis, foodborne illness, biliary pathology, appendicitis, bowel obstruction, perforation, abscess, mass or malignancy, renal colic, UTI, pyelonephritis, electrolyte or metabolic abnormality, dehydration, among others. Administered Medications Sodium Chloride (Nss) 1,000 mls @ 60 mls/hr IV .[id number] [facility] Stop: 06/24/25 04:49 Last Admin: 06/22/25 20:20 Dose: 60 mls/hr Documented By: Infusion: 06/22/25 20:20 Dose: Infused Documented By: Admin: 06/22/25 19:57 Dose: 60 mls/hr Documented By: DIANDRA Heparin Sodium/Dextrose (Heparin 71491 Unit/500 Ml D5w) 25,000 units in 500 mls @ 17 mls/hr IV .Q24H RAQUEL; Protocol Stop: 07/22/25 20:36 Last Admin: 06/22/25 21:40 Dose: 850 units/hr, 17 mls/hr Documented By: LIZABETH Co-signed By: YOLANDA Insulin Aspart (Insulin Aspart Per Unit Charge) 0 units SC Q6 RAQUEL Stop: 07/22/25 21:14 Last Admin: 06/22/25 21:54 Dose: 2 units Documented By: DAVIDK Co-signed By: CARLA Quetiapine Fumarate (Quetiapine Fumarate 25 Mg Tablet) 25 mg PO HS RAQUEL Stop: 07/22/25 20:59 Last Admin: 06/22/25 21:56 Dose: 25 mg Documented By: DAVIDK Discontinued Medications Sodium Chloride (Nss) 500 mls @ 999 mls/hr IV .Q31M ONE Stop: 06/22/25 15:26 Last Infusion: 06/22/25 15:57 Dose: Infused Documented By: Admin: 06/22/25 15:23 Dose: 999 mls/hr Documented By: DENIS Sodium Chloride (Nss) 1,000 mls @ 250 mls/hr IV .Q4H RAQUEL Stop: 06/25/25 14:59 Last Admin: 06/22/25 20:26 Dose: 250 mls/hr Documented By: Infusion: 06/22/25 20:02 Dose: Infused Documented By: Admin: 06/22/25 15:58 Dose: 250 mls/hr Documented By: DENIS Ceftriaxone Sodium (Rocephin) 2,000 mg in 50 mls @ 100 mls/hr IV NOW STA Stop: 06/22/25 18:08 Last Infusion: 06/22/25 19:15 Dose: Infused Documented By: Admin: 06/22/25 18:20 Dose: 100 mls/hr Documented By: DENIS Promethazine HCl (Phenergan) 12.5 mg in 50.5 mls @ 202 mls/hr IV NOW STA Stop: 06/22/25 18:03 Last Infusion: 06/22/25 18:44 Dose: Infused Documented By: Admin: 06/22/25 17:59 Dose: 202 mls/hr Documented By: DENIS Insulin Glargine (Lantus Per Unit Charge) 40 units SQ NOW ONE Stop: 06/22/25 21:12 Last Admin: 06/22/25 21:54 Dose: 40 units Documented By: LIZABETH Co-signed By: CARLA Morphine Sulfate (Morphine Sulfate 2 Mg/Ml Carp) 2 mg IV NOW STA Stop: 06/22/25 17:50 Last Admin: 06/22/25 17:59 Dose: 2 mg Documented By: DENIS Medical Decision Making Differential Diagnosis See ED course. Medical Records Attestation: I reviewed the patient's medical records. Home Medications Current Medication List: was personally reviewed by me Laboratory Data Attestation: I reviewed the patient's lab results. 06/22/25 13:37 06/22/25 13:37 Lab Results 06/22/25 06/22/25 Range/Units 13:37 16:50 WBC 12.97 H (4.8-10.8) K/ul RBC 4.34 (4.20-5.40) M/uL Hgb 13.4 (12.0-16.0) g/dL Hct 37.9 (37.0-47.0) % MCV 87.3 (80.0-100.0) fL MCH 30.9 (25.0-34.0) pg MCHC 35.4 (32.0-36.0) g/dL RDW Std Deviation 43.5 (36.4-46.3) fL RDW Coeff of Katrin 13.8 (11.5-14.5) % Plt Count 205 (130-400) K/uL MPV 10.8 (9.4-12.4) fL Immature Gran % (Auto) 0.4 % Neut % (Auto) 85.2 % Lymph % (Auto) 7.5 % [place] % (Auto) 6.6 % Eos % (Auto) 0.0 % Baso % (Auto) 0.3 % Neut # (Auto) 11.05 H (1.40-6.50) K/uL Lymph # (Auto) 0.97 L (1.20-3.40) K/uL [place] # (Auto) 0.86 H (0.11-0.59) K/uL Eos # (Auto) 0.00 (0.00-0.50) K/uL Baso # (Auto) 0.04 (0.00-0.20) K/uL Immature Gran # (Auto) 0.05 (0.01-0.20) K/uL PT 15.5 H (9.0-12.0) Seconds INR 1.5 H (0.9-1.1) Sodium 127 L (136-145) mmol/L Potassium 4.5 (3.5-5.1) mmol/L Chloride 93 L (98-107) mmol/L Carbon Dioxide 24 (21-32) mmol/L Anion Gap 10 (3-11) BUN 28 H (6-23) mg/dl Creatinine 1.83 H (0.6-1.2) mg/dl Est Cr Clr Drug Dosing Not Reportable eGFR 28.27 BUN/Creatinine Ratio 15.3 (10-20) Glucose 506 H* (70-99(Fasting)) mg/dl Calcium 9.3 (8.6-10.3) mg/dl Magnesium 2.0 (1.7-2.4) mg/dl Total Bilirubin 1.4 H (0.2-1.0) mg/dl AST 25 (13-39) U/L ALT 15 (7-52) U/L Alkaline Phosphatase 100 (34-104) U/L Troponin I High Sens 16.3 H (0-14) pg/ml Total Protein 7.4 (6.0-8.3) gm/dl Albumin 3.6 (3.4-5.0) gm/dl Globulin 3.8 (2.5-4.0) gm/dl Albumin/Globulin Ratio 0.9 (0.9-2) Lipase 19 (11-82) U/L Urine Color Dark Yellow Urine Appearance Cloudy A (Clear) Urine pH 5.0 (4.5-7.5) Ur Specific [place] 1.020 (1.000-1.030) Urine Protein 1+ H (Negative) Urine Glucose (UA) 3+ H (Negative) Urine Ketones Trace H (Negative) Urine Blood 2+ H (Negative) Urine Nitrite Positive A (Negative) Urine Bilirubin Negative (Negative) Urine Urobilinogen Negative (Negative) Ur Leukocyte Esterase 1+ H (Negative) Urine WBC (Auto) >50 H (0-5) /hpf Urine RBC (Auto) 0-2 (0-2) /hpf U Hyaline Cast (Auto) 11-20 H (0-2) /lpf U Epithel Cells (Auto) 3-5 H (0-2) /hpf Urine Bacteria (Auto) 2+ H (None Seen) Hyaline Casts Present A (None Presnt) /lpf Urine Mucus Present A (None Prsent) Urine Comment Imaging Data Attestation: I personally reviewed and interpreted this imaging study as follows: Radiologist's Impression: Chest X-Ray 06/22/25 14:43 XR chest 1V portable CLINICAL HISTORY: Dyspnea. COMPARISON STUDY: Chest CT October 24, 2024. Chest radiograph December 10, 2024. FINDINGS: Postoperative findings within the cervical spine are incidentally noted. Cardiomegaly is unchanged. There is extensive mitral annular calcification. There is no evidence for pulmonary edema. No pneumothorax or pleural effusion is present. There is no consolidation to suggest pneumonia. IMPRESSION: No acute cardiopulmonary findings. Stable cardiomegaly. ACT 112: Negative or not required by law. Electronically signed by: Reese Nelson M.D. 06/22/2025 3:58 PM Abdomen/Pelvis CT 06/22/25 14:[address] WITHOUT CONTRAST CT DOSE: 1356.45 mGy.cm HISTORY: Acute nausea, vomiting with right lower quadrant abdominal pain VOMITING X 4 DAYS, RLQ ABD PAIN TECHNIQUE: Multiaxial CT images of the abdomen and pelvis were performed without contrast. A dose lowering technique was utilized adhering to the principles of ALARA. COMPARISON STUDY: CT abdomen and pelvis 10/21/2024 FINDINGS: There are extensive coronary artery and mitral annular calcifications. Lung bases are generally clear. There is no pneumatosis or pneumoperitoneum. Unremarkable spleen, pancreas and right adrenal gland. Unchanged mild nodular thickening of the left adrenal gland. Cirrhotic liver. No hepatic mass identified on this noncontrast study. Mild hepatic steatosis. There is recanalization of the umbilical vein with abdominal varicosities. Mild nonspecific bilateral perinephric stranding. Exophytic cyst of the superior pole left kidney, 1.9 cm. Bilateral renal vascular calcifications. There is [id number]-mo-[id number] right-sided hydroureteronephrosis secondary to an obstructing 6 mm calculus within the proximal right ureter at the level of L4. There is air within the right renal collecting system and urinary bladder which is partially decompressed. Unremarkable uterus. Atherosclerosis of the aorta and branch vessels. No lymphadenopathy. Mild distal esophageal wall thickening. There is no bowel obstruction or bowel wall thickening identified. No CT evidence of acute appendicitis. Unremarkable soft tissues. No acute fracture. IMPRESSION: 1. Hcyu-dh-[id number] right-sided hydroureteronephrosis secondary to an obstructing 6 cm calculus of the right ureter at the level of L4. 2. Air within the right renal collecting system and urinary bladder lumen may be secondary to instrumentation versus gas forming organism. Correlate with urinalysis. 3. Cirrhotic liver with abdominal varicosities compatible with portal venous hypertension. ACT 112: Negative or not required by law. The above report was generated using voice recognition software. It may contain grammatical, syntax or spelling errors. Electronically signed by: Rajan Elizabeth M.D. 06/22/2025 3:36 PM MDM Narrative See ED course. Impression & Plan Vomiting, Calculus of right ureter, Urinary tract infection, SOL (acute kidney injury), Hyperglycemia Discharge Plan Visit Data Chief Complaint: Illness Stated Complaint: SOD VOMITING DIZZY ED Provider: Darling Mcadams ED Midlevel Provider: Cj Foreman Discharge Problem: Vomiting, Calculus of right ureter, Urinary tract infection, SOL (acute kidney injury), Hyperglycemia Patient Disposition: Admitted As Inpatient Condition: Fair Discharge Instructions Interventions: ED Discharge Assessment Last Done: 06/22/25 20:52
[2025-06-22 15:15] LABS: Magnesium 2.0 mg/dl (1.7-2.4)
[2025-06-22 15:20] LABS: Anion Gap 10 (3-11); Blood Urea Nitrogen 28 mg/dl (6-23); Calcium 9.3 mg/dl (8.6-10.3); Carbon Dioxide 24 mmol/L (21-32); Globulin 3.8 gm/dl (2.5-4.0); Glucose 506 mg/dl (70-99(Fasting)); Sodium 127 mmol/L (136-145); Total Protein 7.4 gm/dl (6.0-8.3)
[2025-06-22] MEDS: SODIUM CHLORIDE 0.9% 500 ML IV ONE (15:23)
--- NOTE | 2025-06-22 15:38 | CT Scan Report ---
ABDOMEN AND PELVIS CT WITHOUT CONTRAST CT DOSE: 1356.45 mGy.cm HISTORY: Acute nausea, vomiting with right lower quadrant abdominal pain VOMITING X 4 DAYS, RLQ ABD PAIN TECHNIQUE: Multiaxial CT images of the abdomen and pelvis were performed without contrast. A dose lo wering technique was utilized adhering to the principles of ALARA. COMPARISON STUDY: CT abdomen and pelvis 10/21/2024 FINDINGS: There are extensive coronary artery and mitral annular calcifications. Lung bases are gener ally clear. There is no pneumatosis or pneumoperitoneum. Unremarkable spleen, pancreas and right adre nal gland. Unchanged mild nodular thickening of the left adrenal gland. Cirrhotic liver. No hepatic m ass identified on this noncontrast study. Mild hepatic steatosis. There is recanalization of the umbi lical vein with abdominal varicosities. Mild nonspecific bilateral perinephric stranding. Exophytic cyst of the superior pole left kidney, 1. 9 cm. Bilateral renal vascular calcifications. There is tqbn-[id number] right-sided hydroureteroneph rosis secondary to an obstructing 6 mm calculus within the proximal right ureter at the level of L4. There is air within the right renal collecting system and urinary bladder which is partially decompre ssed. Unremarkable uterus. Atherosclerosis of the aorta and branch vessels. No lymphadenopathy. Mild distal esophageal wall thickening. There is no bowel obstruction or bowel wall thickening identi fied. No CT evidence of acute appendicitis. Unremarkable soft tissues. No acute fracture. IMPRESSION: 1. Iwzc-at-zqbigwxh right-sided hydroureteronephrosis secondary to an obstructing 6 cm calculus of th e right ureter at the level of L4. 2. Air within the right renal collecting system and urinary bladder lumen may be secondary to instrum entation versus gas forming organism. Correlate with urinalysis. 3. Cirrhotic liver with abdominal varicosities compatible with portal venous hypertension. ACT 112: Negative or not required by law. The above report was generated using voice recognition software. It may contain grammatical, syntax o r spelling errors. Electronically signed by: Rajan Elizabeth M.D. 06/22/2025 3:36 PM
[2025-06-22] MEDS: SODIUM CHLORIDE 0.9% 1,000 ML IV SCH ×2 (15:58→19:57)
--- NOTE | 2025-06-22 15:59 | XRay Report ---
XR chest 1V portable CLINICAL HISTORY: Dyspnea. COMPARISON STUDY: Chest CT October 24, 2024. Chest radiograph December 10, 2024. FINDINGS: Postoperative findings within the cervical spine are incidentally noted. Cardiomegaly is un changed. There is extensive mitral annular calcification. There is no evidence for pulmonary edema. N o pneumothorax or pleural effusion is present. There is no consolidation to suggest pneumonia. IMPRESSION: No acute cardiopulmonary findings. Stable cardiomegaly. ACT 112: Negative or not required by law. Electronically signed by: Reese Nelson M.D. 06/22/2025 3:58 PM
[2025-06-22 16:18] LABS: Lipase 19 U/L (11-82)
[2025-06-22 17:28] LABS: Appearance Urine Cloudy (Clear); Bacteria Urine Automated 2+ (None Seen); Glucose Urine UA 3+ (Negative); RBC Urine Automated 0-2 /hpf (0-2); WBC Urine Automated >50 /hpf (0-5)
[2025-06-22] MEDS: MoRPHine SULFATE 2 MG/ML CARP IV STA (17:59)
[2025-06-22] MEDS: PROMETHAZINE 12.5 MG/50.5 ML BAG IV STA (17:59)
[2025-06-22] MEDS: cefTRIAXone SODIUM 2,000 MG/50 ML BAG IV STA (18:20)
--- NOTE | 2025-06-22 18:43 | History & Physical Report ---
Date of Service June 22, 2025 Assessment & Plan (1) Ureteral stone: (2) CHF (congestive heart failure): (3) Insulin dependent type 2 diabetes mellitus: (4) Depression: (5) Morbid obesity: (6) HX: breast cancer: Plan 75 y/o F with 6mm ureteral stone with hydronephrosis presents with 4 days of vomiting and abdominal pain. . #Sepsis: #SOL: ISO ureteral stone + hydronephrosis Leukocytosis 12.97; lactate ordered Serum Creatinine 1.83; baseline 0.9 last week CTAP reveals: * [id number] right-sided hydroureteronephrosis secondary to an obstructing 6 cm calculus of the right ureter at the level of L4. * Air within the right renal collecting system and urinary bladder lumen may be secondary to instrumentation versus gas forming organism. Correlate with urinalysis. * Cirrhotic liver with abdominal varicosities compatible with portal HTN UA: 1+LE, WBC > 50, Blood > 2, trace ketones Ceftriaxone started in ED; continue for now and adjust based on urine and blood cultures Gentle fluids for now NPO strain urine Morphine for pain control Formal Urology consult placed; discussed with Dr. Calloway; IV abx for now; NPO and possible OR if stone does not pass overnight #Uncontrolled IDDM2: Serum glucose level 506 Last A1c: 14.9 from 06/01/25 Uses an insulin pump at home [facility] Glycemic pharmacy CDE #H/O DVT: #H/O PE: #Subtherapeutic INR: RLE x2 in s Takes Coumadin; hold. She did not take Coumadin yesterday. INR 1.5; place on Heparin drip (low dose, no bolus) #HFpEF: Most recent ECHO: 09/02/2024: G1DDX, moderate LVH, mild MR chase IVF for now given NPO #H/O Breast CA: s/p partial mastectomy 2020 Disposition: PCP: Dr. Heller Code: Full Code VTE Prophylaxis: On Coumadin; placed on Heparin gtt for now given subtherapeutic INR I spent a total of 81 minutes coordinating, documenting, and providing care for this patient excluding time spent inthe performance of separately billed services or time spent by another provider/QHP. History of Present Illness Chief Complaint: abdominal pain/6mm mid R ureteral stone Primary Care Provider: Natalia Heller PA-C Ms. Mobley is a 75 year old female that presented to the ED with complaints of RLQ abdominal and vomiting x 4 days. CTAP reveals mild-mod R sided hydroureteronephrosis 2/2 obtstucting 6 mm stone R ureter. Urine suggestive of UTI and creatinine elevated in setting of hydronephrosis. Uncontrolled diabetes with serum glucose of 506. She uses an insulin pump at home. PMH includes: COPD, HFpEF, H/O DVT (x2 RLE in on Coumadin), H/O Breast c ancer Leukocytosis 12.97, serum creatinine 1.83, Urine suggesting UTI; 1+LE, WBC > 50, Blood > 2, trace ketones. Subtherapeutic INR 1.5; reportedly she has not taken her Coumadin yesterday due to feeling unwell. Most recent ECHO: 09/02/2024: G1DDX, moderate LVH, mild MR. CTAP reveals: * [id number] right-sided hydroureteronephrosis secondary to an obstructing 6 cm calculus of the right ureter at the level of L4. * Air within the right renal collecting system and urinary bladder lumen may be secondary to instrumentation versus gas forming organism. Correlate with urinalysis. * Cirrhotic liver with abdominal varicosities compatible with portal HTN Pt appears unwell on examination. AAOx4, c/o abdominal pain and tenderness. Reports that Morphine did relieve pain. Pt denies GIL, SOB, chest pain, while c/o abd pain, no radiation to back, dysuria, no recent falls or trauma. Uses a walker for ambulation assistance. Pt will be admitted for further evalaution and management of her ureteral stone with continued IV abx, NPO for now, strain urine, Morphine PRN for pain control, formal urology consult to follow; if stone does not pass; may consider OR tomorrow 06/13. Heparin drip given H/O DVT's and subtherapeutic INR. ACHS SSI FSBS for uncontrolled diabetes; may not need insulin gtt given NPO. Better overall control with A1C (most recent 14.9), CDE and Glycemic pharmacy. Allergies Allergy/AdvReac Type Severity Reaction Status Date / Time alendronate sodium Allergy Severe DIFFICULTY Verified 10/21/24 15:12 BREATHING/BURNING SENSATION esomeprazole Allergy Intermediate Hives Verified 10/21/24 15:12 Home Medications Medication Instructions Recorded Confirmed Type warfarin 5 mg tablet 7.25 mg PO QPM 01/12/20 06/22/25 History cyanocobalamin (vitamin B-12) 1,000 mcg sublingual QAM 09/21/22 06/22/25 History 1,000 mcg sublingual tablet cholecalciferol (vitamin D3) 25 1,000 unit PO QAM #30 caps 10/29/24 06/22/25 Rx mcg (1,000 unit) capsule fluticasone propionate 50 2 spray intranasal QAM #1 mL 10/29/24 06/22/25 Rx mcg/actuation nasal spray,suspension (Flonase Allergy Relief) furosemide 20 mg tablet 20 mg PO QAM #30 tabs 10/29/24 06/22/25 Rx isosorbide mononitrate 60 mg 60 mg PO QAM #30 tabs 10/29/24 06/22/25 Rx tablet,extended release 24 hr metoprolol succinate 25 mg 12.5 mg (1/2 x 25 mg) PO QAM #15 10/29/24 06/22/25 Rx tablet,extended release 24 hr tabs multivitamin (Daily-Moiz tablet) 1 tab PO QAM #30 tabs 10/29/24 06/22/25 Rx rosuvastatin 20 mg tablet 20 mg PO QAM #30 tabs 10/29/24 06/22/25 Rx ascorbic acid (vitamin C) 1,000 mg 1,000 mg PO QAM 12/10/24 06/22/25 History tablet (Vitamin C) ferrous sulfate 325 mg (65 mg 325 mg PO QAM 12/10/24 06/22/25 History iron) tablet insulin aspart U-100 100 unit/mL See Rx Instructions .Route .COMPLEX 12/10/24 06/22/25 History subcutaneous solution (Novolog U-100 Insulin aspart) metformin 1,000 mg tablet 1,000 mg PO BID 12/10/24 06/22/25 History albuterol sulfate 0.63 mg/3 mL 0.63 mg continuous nebulization Q6 06/22/25 06/22/25 History solution for nebulization PRN Wheezing albuterol sulfate 90 mcg/actuation 2 puff inhalation Q6 PRN Shortness 06/22/25 06/22/25 History aerosol inhaler (Ventolin HFA) Of Breath famotidine 40 mg tablet 40 mg PO QAM 06/22/25 06/22/25 History fluticasone fur. 100 mcg-umeclid 1 inh inhalation QAM 06/22/25 06/22/25 History 62.5 mcg-vilant 25 mcg inhalat.powder (Trelegy Ellipta) lorazepam 0.5 mg tablet 0.5 mg PO Q6 PRN Anxiety 06/22/25 06/22/25 History montelukast 10 mg tablet 10 mg PO HS 06/22/25 06/22/25 History nitroglycerin 0.3 mg sublingual 0.3 mg sublingual .EVERY 5 MINUTES 06/22/25 06/22/25 History tablet PRN Chest Pain potassium chloride 10 mEq 10 meq PO QAM 06/22/25 06/22/25 History capsule,extended release quetiapine 25 mg tablet 25 mg PO HS 06/22/25 06/22/25 History Past Med/Surg History Problem List (Updated 06/22/25 @ 18:40 by AUDELIA Monteiro) HX: breast cancer Ureteral stone COPD (chronic obstructive pulmonary disease) (Acute) CHF (congestive heart failure) (Acute) GARCIA (dyspnea on exertion) (Acute) Nonspecific ST-T wave electrocardiographic changes Pulmonary hypertension Morbid obesity E coli bacteremia Anxiety Cirrhosis SOB (shortness of breath) Cardiac arrest Prolonged QT interval Torsades de pointes GERD (gastroesophageal reflux disease) Diabetic polyneuropathy Hyperlipidemia Insulin dependent type 2 diabetes mellitus Depression Elevated troponin Acute on chronic diastolic heart failure COPD exacerbation ASCVD (arteriosclerotic cardiovascular disease) HTN (hypertension) Ankle fracture, bimalleolar, closed Anemia Chronic anticoagulation (Chronic) Brittany-prosthetic fracture around prosthetic knee Osteoporosis Coronary artery disease Microvascular angina Medical History COPD (chronic obstructive pulmonary disease) History of pulmonary embolism Chronic atrial fibrillation Benign neoplasm of colon Osteoarthritis History of DVT (deep vein thrombosis) "RLE x 2 in 1980s" 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) "Abnormal left breast mammogram 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 Estrogen receptor positive and progesterone receptor positive Status post lumpectomy with sentinel lymph node biopsy stage [id number] 04/07/2015 Status post completion of radiation therapy 07/21/2015 received 6640 cGy" On 07/25/15 17:54 Jayleen Bates wrote "Abnormal left breast mammogram 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 Estrogen receptor positive and progesterone receptor positive Status post lumpectomy with sentinel lymph node biopsy stage [id number] 04/07/2015 Status post completion of radiation therapy 07/21/2015 received 6640 cGy" On 07/25/15 17:49 Jayleen Bates wrote "Abnormal left breast mammogram 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 Estrogen receptor positive and progesterone receptor positive Status post lumpectomy with sentinel lymph node biopsy stage [id number] 04/07/2015" Surgical History H/O partial mastectomy "left breast 04/2015 with lymph node biopsy" H/O arthroscopic knee surgery H/O colonoscopy History of carpal tunnel surgery S/P cervical spinal fusion S/P dilation and curettage H/O vein stripping Family History Other Breast cancer Diabetes Heart disease Social History Smoking Status: Former smoker Tobacco Type: Cigarettes Second Hand Exposure: No; Do You Dip or Chew Tobacco: No; Hx Alcohol Use: No Hx Substance Use: No Preferred Language: Guamanian Communication Ability: Effective Recoil Spring Winder Required: No Beliefs That Will Affect Care: None Current Living Situation: Spouse and Family Current Living Situation Comment: lives at home with and step-son Feels Safe at Home: Yes Assistive Devices: CPAP, Scooter/Electric Scooter, Walker and Wheelchair Review of Systems Review of Systems: Neuro: (-) Falls, trauma, slurred speech HEENT: (-) GIL, dizziness, dysphagia, visual or auditory changes CV: (-) CP, palpitations, swelling Resp: (-) SOB GI: (-) appetite changes, (+) abdominal pain (+) vomiting and nausea. (-) bowel changes : (-) urinary changes Skin: (-) rashes Psych: (-) anxiety, depression Physical Exam Physical Exam: Neuro: AAOx4, PERRLA, no aphagia, memory changes, CNII-XII grossly intact HEENT: head normocephalic, moist mucus membranes CV: S1/S2, (-) M/G/R, (-) edema, cap refill < 3 seconds Resp: Lungs CTA in all burger. On RA GI: Abdomen large, tender, non-distended, Ax4 bowel sounds, (-) CVA tenderness Musculoskeletal: 5/5 B/L UE strength, 5/5 B/L LE strength. No gait disturbance Skin: (-) rashes , (-) erythema. Psych: euthymic mood Results & Data Results & Data Vital Signs (Past 12 Hours) Vital Signs Temp Pulse Pulse Resp BP BP Pulse Ox 06/22/25 17:00 97 H 17 144/88 H 06/22/25 15:21 103 H 20 130/90 98 06/22/25 14:44 97 H 06/22/25 14:42 96 H 18 108/68 97 06/22/25 12:16 37.1 C 103 H 22 111/71 96 O2 Del Method 06/22/25 17:00 06/22/25 15:21 06/22/25 14:44 06/22/25 14:42 Room Air 06/22/25 12:16 Room Air Laboratory Results Short CBC 06/22/25 Range/Units 13:37 WBC 12.97 H (4.8-10.8) K/ul Hgb 13.4 (12.0-16.0) g/dL Hct 37.9 (37.0-47.0) % Plt Count 205 (130-400) K/uL BMP 06/22/25 13:37 Sodium 127 L Potassium 4.5 Chloride 93 L Carbon Dioxide 24 BUN 28 H Creatinine 1.83 H Glucose 506 H* Calcium 9.3 Liver Function 06/22/25 Range/Units 13:37 Total Bilirubin 1.4 H (0.2-1.0) mg/dl AST 25 (13-39) U/L ALT 15 (7-52) U/L Alkaline Phosphatase 100 (34-104) U/L Albumin 3.6 (3.4-5.0) gm/dl Urine 06/22/25 Range/Units 16:50 Urine Color Dark Yellow Urine Appearance Cloudy A (Clear) Urine pH 5.0 (4.5-7.5) Ur Specific [place] 1.020 (1.000-1.030) Urine Protein 1+ H (Negative) Urine Glucose (UA) 3+ H (Negative) Diagnostic Findings Chest X-Ray 06/22/25 14:43 XR chest 1V portable CLINICAL HISTORY: Dyspnea. COMPARISON STUDY: Chest CT October 24, 2024. Chest radiograph December 10, 2024. FINDINGS: Postoperative findings within the cervical spine are incidentally noted. Cardiomegaly is unchanged. There is extensive mitral annular calcification. There is no evidence for pulmonary edema. No pneumothorax or pleural effusion is present. There is no consolidation to suggest pneumonia. IMPRESSION: No acute cardiopulmonary findings. Stable cardiomegaly. ACT 112: Negative or not required by law. Electronically signed by: Reese Nelson M.D. 06/22/2025 3:58 PM Abdomen/Pelvis CT 06/22/25 14:[address] WITHOUT CONTRAST CT DOSE: 1356.45 mGy.cm HISTORY: Acute nausea, vomiting with right lower quadrant abdominal pain VOMITING X 4 DAYS, RLQ ABD PAIN TECHNIQUE: Multiaxial CT images of the abdomen and pelvis were performed without contrast. A dose lowering technique was utilized adhering to the principles of ALARA. COMPARISON STUDY: CT abdomen and pelvis 10/21/2024 FINDINGS: There are extensive coronary artery and mitral annular calcifications. Lung bases are generally clear. There is no pneumatosis or pneumoperitoneum. Unremarkable spleen, pancreas and right adrenal gland. Unchanged mild nodular thickening of the left adrenal gland. Cirrhotic liver. No hepatic mass identified on this noncontrast study. Mild hepatic steatosis. There is recanalization of the umbilical vein with abdominal varicosities. Mild nonspecific bilateral perinephric stranding. Exophytic cyst of the superior pole left kidney, 1.9 cm. Bilateral renal vascular calcifications. There is [id number] right-sided hydroureteronephrosis secondary to an obstructing 6 mm calculus within the proximal right ureter at the level of L4. There is air within the right renal collecting system and urinary bladder which is partially decompressed. Unremarkable uterus. Atherosclerosis of the aorta and branch ves sels. No lymphadenopathy. Mild distal esophageal wall thickening. There is no bowel obstruction or bowel wall thickening identified. No CT evidence of acute appendicitis. Unremarkable soft tissues. No acute fracture. IMPRESSION: 1. [id number] right-sided hydroureteronephrosis secondary to an obstructing 6 cm calculus of the right ureter at the level of L4. 2. Air within the right renal collecting system and urinary bladder lumen may be secondary to instrumentation versus gas forming organism. Correlate with urinalysis. 3. Cirrhotic liver with abdominal varicosities compatible with portal venous hypertension. ACT 112: Negative or not required by law. The above report was generated using voice recognition software. It may contain grammatical, syntax or spelling errors. Electronically signed by: Rajan Elizabeth M.D. 06/22/2025 3:36 PM Code Status & VTE Plan Code Status Full Code in the event of cardiac or respiratory arrest Supervising Physician Co-Signing Physician Notes 75-year-old female was seen and examined at bedside's 6 mm ureteral stone with moderate hydronephrosis and 4 days abdominal pain and vomiting. UA suggestive of UTI. Admitting presntation is sepsis likely secondary to UTI. Also noted to have SOL secondary to obstructive uropathy and pre renal component d/t vomiting [employer]. Urology aware. Continue with antibiotic, n.p.o. midnight for possible instrumentation in AM. Gentle IV fluid and labs in AM. Expect renal function to improve with release of ureteral obstruction and continued gentle ivf. Avoid nephrotoxics. On exam: Patient on room air, negative BLE edema, RLQ tender. Rest of the examination as above. Total time spent independently: 20 minutes. I have seen and examined the patient and have discussed the case with the provider above. I agree with the assessment and plan as stated. (2) CHF (congestive heart failure) Heart failure chronicity: acute on chronic Heart failure type: unspecified Qualified Code(s): I50.9 - Heart failure, unspecified (4) Depression Depression Type: unspecified Qualified Code(s): F32.A - Depression, unspecified
[2025-06-22] MEDS ORDERED: CARBOHYDRATES FOR HYPOGLYCEMIA PO PRN ×2 (20:37)
[2025-06-22] MEDS ORDERED: ACETAMINOPHEN 325 MG TAB PO PRN (20:37)
[2025-06-22] MEDS ORDERED: POLYETHYLENE (MIRALAX) 17 GM PACK PO PRN (20:37)
[2025-06-22] MEDS ORDERED: ALUMINUM/MAGNESIUM SUSP 30 ML UDC PO PRN (20:37)
[2025-06-22] MEDS ORDERED: GLUCOSE 10 TAB/TUBE PO PRN (20:37)
[2025-06-22] MEDS ORDERED: PHARMACY GLYCEMIC MGMT CONSULT PRN (20:37)
[2025-06-22] MEDS ORDERED: DEXTROSE 50% 50 ML SYRINGE IV PRN ×2 (20:37)
[2025-06-22] MEDS ORDERED: GLUCAGON FOR INJ 1 MG VIAL SQ PRN ×2 (20:37)
[2025-06-22] MEDS ORDERED: ONDANSETRON INJ 2 MG/ML 2 ML VIAL IV PRN (20:37)
[2025-06-22] MEDS ORDERED: MAGNESIUM HYDROXIDE SUSP 30 ML UDC PO PRN (20:37)
[2025-06-22] MEDS ORDERED: GLUCOSE 40% GEL 15 GM TUBE PO PRN ×2 (20:37)
[2025-06-22] MEDS ORDERED: INSULIN ASPART PER UNIT CHARGE SC SCH ×2 (21:00)
[2025-06-22] MEDS ORDERED: Heparin IV Adult Wt-Based Low-Dose *NO* INITIAL Bolus Protocol IV SCH (21:05)
--- NOTE | 2025-06-22 21:26 | Urology Consultation ---
Date of Consultation June 22, 2025 Assessment & Plan (1) Ureteral stone: Patient has been admitted on the hospitalist service. From a urologic perspective we recommend the following: Patient is noted to have 6 mm obstructing kidney stone on the right At the time of my interview with the patient she was nontoxic-appearingthat she was normotensive with slight tachycardia but she has had no documented fever since arrival to the emergency department and only exhibits slight leukocytosis At the time of admission the admitting service did discuss with Dr. Calloway, urology attending For now we will continue the patient with analgesics as needed She should be hydrated IV fluids Antibiotics in form of Rocephin have been initiated and appropriate cultures have been sentantibiotics can be tailored based on pending culture results Would recommend keeping the patient n.p.o. for the present time I feel the patient will likely require cystoscopic intervention on 06/23/2025, but if the patient clinically deteriorates (has worsening tachycardia, hypotension, or fever) cystoscopy may be required at an earlier time Additional recommendations to be forthcoming based on clinical course as unfolds History of Present Illness Reason for Consultation: Nephrolithiasis Attending Physician: Kelvin Huddleston MD History of Present Illness This is a 75-year-old female who presented to the hospital secondary to right lower quadrant abdominal pain as well as vomiting for approximately 4 days. Patient says that the pain really is not in her back and is otherwise nonradiating. She does not report any modifying factors to her pain. She says that while she was at home she was able to urinate without difficulty and she denied any dysuria or hematuria. Patient does report that at home she feels as though she had a fever and said she had a fever as high as 103. She does not report any shakes or chills. Since arrival to hospital patient has had labs and imaging which independent reviewed. Chest x-ray showed no evidence of pneumonia. CT scan of the abdomen pelvis showed the patient had moderate right-sided hydronephrosis secondary to an obstructing 6 mm kidney stone in the right ureter. Labs included CBC white blood cell count was elevated 12.9. Hemoglobin, hematocrit, platelet count were normal. Her INR is noted to be 1.5. Chemistry profile showed sodium was 127 with a potassium of 4.5. BUN and creatinine were 28 and one 1.8 (review of records show creatinine typically runs within the normal range). The urinalysis showed cloudy urine which was positive for nitrites as well as 1+ leukocyte esterase and pyuria with greater than 50 white blood cells per high-power field. There is 2+ bacteria on the study. At the time of my interview the patient was resting comfortably in bed and she was in no distress Allergies Allergy/AdvReac Type Severity Reaction Status Date / Time alendronate sodium Allergy Severe DIFFICULTY Verified 10/21/24 15:12 BREATHING/BURNING SENSATION esomeprazole Allergy Intermediate Hives Verified 10/21/24 15:12 Home Medications Medication Instructions Recorded Confirmed Type warfarin 5 mg tablet 7.25 mg PO QPM 01/12/20 06/22/25 History cyanocobalamin (vitamin B-12) 1,000 mcg sublingual QAM 09/21/22 06/22/25 History 1,000 mcg sublingual tablet cholecalciferol (vitamin D3) 25 1,000 unit PO QAM #30 caps 10/29/24 06/22/25 Rx mcg (1,000 unit) capsule fluticasone propionate 50 2 spray intranasal QAM #1 mL 10/29/24 06/22/25 Rx mcg/actuation nasal spray,suspension (Flonase Allergy Relief) furosemide 20 mg tablet 20 mg PO QAM #30 tabs 10/29/24 06/22/25 Rx isosorbide mononitrate 60 mg 60 mg PO QAM #30 tabs 10/29/24 06/22/25 Rx tablet,extended release 24 hr metoprolol succinate 25 mg 12.5 mg (1/2 x 25 mg) PO QAM #15 10/29/24 06/22/25 Rx tablet,extended release 24 hr tabs multivitamin (Daily-Moiz tablet) 1 tab PO QAM #30 tabs 10/29/24 06/22/25 Rx rosuvastatin 20 mg tablet 20 mg PO QAM #30 tabs 10/29/24 06/22/25 Rx ascorbic acid (vitamin C) 1,000 mg 1,000 mg PO QAM 12/10/24 06/22/25 History tablet (Vitamin C) ferrous sulfate 325 mg (65 mg 325 mg PO QAM 12/10/24 06/22/25 History iron) tablet insulin aspart U-100 100 unit/mL See Rx Instructions .Route .COMPLEX 12/10/24 06/22/25 History subcutaneous solution (Novolog U-100 Insulin aspart) metformin 1,000 mg tablet 1,000 mg PO BID 12/10/24 06/22/25 History albuterol sulfate 0.63 mg/3 mL 0.63 mg continuous nebulization Q6 06/22/25 06/22/25 History solution for nebulization PRN Wheezing albuterol sulfate 90 mcg/actuation 2 puff inhalation Q6 PRN Shortness 06/22/25 06/22/25 History aerosol inhaler (Ventolin HFA) Of Breath famotidine 40 mg tablet 40 mg PO QAM 06/22/25 06/22/25 History fluticasone fur. 100 mcg-umeclid 1 inh inhalation QAM 06/22/25 06/22/25 History 62.5 mcg-vilant 25 mcg inhalat.powder (Trelegy Ellipta) lorazepam 0.5 mg tablet 0.5 mg PO Q6 PRN Anxiety 06/22/25 06/22/25 History montelukast 10 mg tablet 10 mg PO HS 06/22/25 06/22/25 History nitroglycerin 0.3 mg sublingual 0.3 mg sublingual .EVERY 5 MINUTES 06/22/25 06/22/25 History tablet PRN Chest Pain potassium chloride 10 mEq 10 meq PO QAM 06/22/25 06/22/25 History capsule,extended release quetiapine 25 mg tablet 25 mg PO HS 06/22/25 06/22/25 History Patient History Medical History COPD (chronic obstructive pulmonary disease) History of pulmonary embolism Chronic atrial fibrillation Benign neoplasm of colon Osteoarthritis History of DVT (deep vein thrombosis) "RLE x 2 in 1980s" 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) "Abnormal left breast mammogram 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 Estrogen receptor positive and progesterone receptor positive Status post lumpectomy with sentinel lymph node biopsy stage [id number] 04/07/2015 Status post completion of radiation therapy 07/21/2015 received 6640 cGy" On 07/25/15 17:54 Jayleen Bates wrote "Abnormal left breast mammogram 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 Estrogen receptor positive and progesterone receptor positive Status post lumpectomy with sentinel lymph node biopsy stage [id number] 04/07/2015 Status post completion of radiation therapy 07/21/2015 received 6640 cGy" On 07/25/15 17:49 Jayleen Bates wrote "Abnormal left breast mammogram 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 Estrogen receptor positive and progesterone receptor positive Status post lumpectomy with sentinel lymph node biopsy stage [id number] 04/07/2015" Surgical History H/O partial mastectomy "left breast 04/2015 with lymph node biopsy" H/O arthroscopic knee surgery H/O colonoscopy History of carpal tunnel surgery S/P cervical spinal fusion S/P dilation and curettage H/O vein stripping Family History Other Breast cancer Diabetes Heart disease Social History Smoking Status: Former smoker Tobacco Type: Cigarettes Second Hand Exposure: No; Do You Dip or Chew Tobacco: No; Hx Alcohol Use: No Hx Substance Use: No Preferred Language: P[place]in[place] Communication Ability: Effective 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 Beliefs That Will Affect Care: None Current Living Situation: Spouse Current Living Situation Comment: lives at home with and step-son Other Information That Helps Us Care for You: No Feels Safe at Home: Yes Safety Concerns: Feels Safe At This Time Assistive Devices: CPAP, Denture - Upper, Glasses, Oxygen - at Night, Walker and Wheelchair Review of Systems Review of Systems: All systems reviewed & are unremarkable except as noted in HPI & below Physical Exam Constitutional: WD/WN, vitals as above Eyes: no conjunctival abnormality ENMT: Ears: no hearing impairment Neck: trachea midline Respiratory: normal respiratory effort; no respiratory distress and no labored breathing Cardiovascular: Rate/Rhythm: regular rate and regular rhythm Gastrointestinal (Abdomen): Abdomen is rotund. There is no rebound tenderness or guarding the patient did have pain with palpation in her lower abdomen which appear to be greatest in the suprapubic region Musculoskeletal: no calf tenderness Skin: no rashes Neurologic: moves all extremities Psychiatric: A+Ox3, euthymic affect Genitourinary: no CVA tenderness to percussion bilaterally Results & Data Vital Signs (Past 12 Hours) Vital Signs Temp Pulse Pulse Pulse Resp BP BP 06/22/25 21:02 37.2 C 105 H 20 161/74 H 06/22/25 18:43 99 H 06/22/25 17:00 97 H 17 144/88 H 06/22/25 15:21 103 H 20 130/90 06/22/25 14:44 97 H 06/22/25 14:42 96 H 18 108/68 06/22/25 12:16 37.1 C 103 H 22 111/71 Pulse Ox O2 Del Method 06/22/25 21:02 97 Room Air 06/22/25 18:43 06/22/25 17:00 06/22/25 15:21 98 06/22/25 14:44 06/22/25 14:42 97 Room Air 06/22/25 12:16 96 Room Air PG Care Time/CCT Total # of Minutes Spent Total Time Spent with Patient: Total time spent is greater than 50% in coordination of care (as documented) at patient's floor/unit and/or counseling patient: Coding Level of Care Code 32458 INT INP/OBS CARE 3/75MIN Diagnoses Ureteral stone N20.1
[2025-06-22] MEDS: HEPARIN 25000 UNIT/500 ML D5W 25,000 UNITS/500 ML BAG IV SCH (21:40)
[2025-06-22] MEDS: LANTUS PER UNIT CHARGE SQ ONE (21:54)
[2025-06-22] MEDS: INSULIN ASPART PER UNIT CHARGE SC SCH (21:54)
[2025-06-23] MEDS: GLUCOSE 10 TAB/TUBE PO PRN (00:16)
[2025-06-23 04:16] LABS: Hematocrit (blood only) 31.9 % (37.0-47.0); Hemoglobin 11.0 g/dL (12.0-16.0); Mean Corpuscular Hemoglobin 30.2 pg (25.0-34.0); Mean Corpuscular Volume 87.6 fL (80.0-100.0); Platelet Count 128 K/uL (130-400); RDW Standard Deviation 45.0 fL (36.4-46.3); Red Blood Count 3.64 M/uL (4.20-5.40); White Blood Count 14.37 K/ul (4.8-10.8)
[2025-06-23 04:18] LABS: ANTI-Xa, UFH(UnfractionatedHep 0.14 IU/ml (0.3-0.7)
[2025-06-23 04:33] LABS: Anion Gap 8.0 (3-11); Blood Urea Nitrogen 26.0 mg/dl (6-23); Calcium 8.1 mg/dl (8.6-10.3); Carbon Dioxide 23.0 mmol/L (21-32); Chloride 103.0 mmol/L (98-107); Creatinine Clr Calc Pharmacy 32.4 ml/min; Glucose 180.0 mg/dl (70-99(Fasting)); INR 1.6 (0.9-1.1); Magnesium 1.7 mg/dl (1.7-2.4); Potassium 4.3 mmol/L (3.5-5.1); Prothrombin Time 16.1 Seconds (9.0-12.0); Sodium 134.0 mmol/L (136-145)
[2025-06-23] MEDS: HEPARIN SOD (PORCINE) 1000 UNIT/ML IV ONE ×2 (05:05→20:32)
[2025-06-23] MEDS: MoRPHine SULFATE 4 MG/ML 1 ML CARP\\VIAL IV PRN (05:08)
[2025-06-23 07:31] LABS: Hemoglobin A1C 14.1 % (4.5-5.6)
--- NOTE | 2025-06-23 07:43 | Pharmacy Report ---
Pharmacy Glycemic Short Note 2 - Date of Service June 23, 2025 - Glycemic Short BSG Results (Last 24 hours): 06/22/25 06/22/25 06/22/25 13:37 19:21 20:36 Glucose 506 H* POC Glucose 246 H 163 H 06/23/25 06/23/25 06/23/25 00:13 00:46 03:51 Glucose 180 H POC Glucose 75 106 H 06/23/25 06/23/25 05:15 05:18 Glucose POC Glucose > 600 H* 263 H OUTPATIENT ANTIDIABETIC REGIMEN: * NovoLog pump * Basal 7.2 units/hr 00-06, 8 units/hr 06-12, 8.9 units/hr 12-00 * Bolus 25 units with breakfast, 45 units with lunch, and 40 units with supper, CF 10 * metformin (Settings pulled from last admission) ASSESSMENT: * 75 year old female admitted with ureteral stone. Type 2 diabetic managed on insulin pump. Pharmacy consulted for glycemic management. BSGs>500 on admission. Pump removed last evening and given Lantus 40 units x 1 dose. BSG trending down to 75 mg/dL overnight - given 4 glucose tabs per nursing notes. BSGs >200 this morning. NPO for possible procedure - will trial Lantus 30 units BID (50% reduction in outpatient dosing - Toujeo 60 units bid/pump failure dosing) while NPO PLAN FOR INPATIENT GLYCEMIC CONTROL: * Hold outpatient oral diabetes medications * Basal insulin * Lantus 30 units SQ BID * Bolus insulin * NovoLog per scale ACHS or Q6hrs while NPO * Goal Range: Low 110 mg/dL - High 140 mg/dL * Correction Factor: 15 mg/dL/unit * Nutritional / Prandial insulin per carb ratio of 1 unit per 5 grams CHO consumed
[2025-06-23] MEDS: LANTUS PER UNIT CHARGE SQ ONE (07:58)
[2025-06-23] MEDS: METOPROLOL SUCC 25MG EXT REL TAB PO SCH ×2 (07:58→21:15)
[2025-06-23] MEDS: ROSUVASTATIN CALCIUM 20 MG TAB PO SCH (07:59)
[2025-06-23] MEDS: ISOSORBIDE MONO EXTENDED REL 60 MG TABCR PO SCH (07:59)
[2025-06-23] MEDS ORDERED: METOPROLOL TARTRATE 1 MG/ML VIAL IV PRN (08:04)
[2025-06-23] MEDS ORDERED: PHARMACY GLYCEMIC MGMT CONSULT PRN (08:09)
[2025-06-23] MEDS ORDERED: LORazepam 0.5 MG TAB PO PRN (08:22)
--- NOTE | 2025-06-23 08:28 | Urology Progress Note ---
<Statement entered by Juice Woods MD - 06/23/25 09:30> Chart reviewed, imaging reviewed, Patient to be assessed plan reviewed and agree as written. 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 Date of Service June 23, 2025 Assessment & Plan (1) Calculus of right ureter: (2) Urinary tract infection: (3) SOL (acute kidney injury): Plan: 75-year-old female admitted for right flank pain secondary to an obstructing 6 mm right ureteral calculus, SOL and concern for UTI. Patient afebrile, mild tachycardia Labs reviewedcreatinine 1.7, WBC 14.37, hemoglobin 11.0 Urinalysis grossly positive Urine culture pending CTAP reviewedobstructing 6 mm right ureteral stone with mild to moderate right hydronephrosis, there is air in the right renal collecting system and bladder Given obstructing right ureteral stone and concern for infection, recommend cystoscopy and right ureteral stent placement today Ureteral stents were discussed as well as the need for a second procedure to treat the stone at a later date after infection has been treated--she is agreeable Proceed to OR for cystoscopy and right ureteral stent placement Keep n.p.o. for procedure Risks and benefits of procedure to be reviewed with patient by attending physician Continue broad-spectrum antibiotics, follow cultures Continue supportive care medical management per hospital medicine service will follow Admission and Anticipated Discharge Date Admission Date: June 22, 2025 Subjective Patient seen and examined at bedside this morning. She is awake and resting in bed. She reports some right flank pain at present. No fever or chills overnight. No nausea or vomiting. Has not voided yet this morning. Review of Systems Constitutional: as per Subjective / HPI Genitourinary: as per Subjective / HPI Physical Exam Constitutional: no acute distress Respiratory: normal respiratory effort; no respiratory distress and no labored breathing Gastrointestinal (Abdomen): Inspection/Auscultation: abdomen normal to inspection Musculoskeletal: Head/Neck/Chest: normocephalic Neurologic: moves all extremities and awake Psychiatric: Orientation: alert and oriented x 3 Results & Data Vital Signs (Past 12 Hours) Vital Signs Temp Pulse Pulse Resp BP Pulse Ox O2 Del Method 06/23/25 07:41 107 H 06/23/25 07:35 37.1 C 96 H 18 135/73 94 Room Air 06/23/25 03:03 37.4 C 103 H 18 114/65 93 Room Air 06/22/25 23:07 107 H 06/22/25 21:02 37.2 C 105 H 20 161/74 H 97 Room Air 06/22/25 21:00 Room Air PG Care Time/CCT Total # of Minutes Spent Total Time Spent with Patient: Total time spent is greater than 50% in coordination of care (as documented) at patient's floor/unit and/or counseling patient: Coding Level of Care Code 53282 SUB INP/OBS CARE 3/50MIN Diagnoses Calculus of right ureter N20.1 Urinary tract infection N39.0 SOL (acute kidney injury) N17.9
[2025-06-23] MEDS ORDERED: NON-FORMULARY MEDICATION (Fluticasone-Umeclidin-Vilanter [Trelegy Ellipta] 100-62.5-25 mcg INH SCH (09:00)
[2025-06-23] MEDS ORDERED: PROPOFOL IV EMULSION 10 MG/ML 20 ML VIAL IV ONE (10:11)
[2025-06-23] MEDS ORDERED: ONDANSETRON INJ 2 MG/ML 2 ML VIAL ONE (10:11)
[2025-06-23] MEDS ORDERED: DEXAMETHASONE SOD INJ 4 MG/ML VIAL ONE (10:11)
[2025-06-23] MEDS ORDERED: LIDOCAINE 2% 2 ML VIAL/AMP(20MG/ML) INFIL ONE (10:11)
[2025-06-23] MEDS: LACTATED RINGER'S 1,000 ML IV SCH (10:12)
[2025-06-23] MEDS ORDERED: MIDAZOLAM HCL 1 MG/ML 2ML VIAL ONE (10:12)
--- NOTE | 2025-06-23 10:46 | Anesthesiology Consultation ---
Date of Service June 23, 2025 Assessment & Plan ASA ASA4 Proposed Anesthesia Anesthesia Type: MAC Risk / Benefits Reviewed With: PT / POA / Parent / Guardian, Accepts Plan and Informed Consent Obtained History Surgery Operation Date: 06/23/25 07:50 Proposed Procedures p Cystoscopy, Right Stent Placement - Juice Woods MD Height/Weight Height: 5 ft 5 in Weight: 96.8 kg Allergies Allergy/AdvReac Type Severity Reaction Status Date / Time alendronate sodium Allergy Severe DIFFICULTY Verified 06/23/25 09:50 BREATHING/BURNING SENSATION esomeprazole Allergy Intermediate Hives Verified 06/23/25 09:50 Medications Home Medications Medication Instructions Recorded Confirmed Last Taken warfarin 5 mg tablet 7.25 mg PO QPM 01/12/20 06/22/25 10/20/24 cyanocobalamin (vitamin B-12) 1,000 mcg sublingual QAM 09/21/22 06/22/25 10/21/24 1,000 mcg sublingual tablet cholecalciferol (vitamin D3) 25 1,000 unit PO QAM #30 caps 10/29/24 06/22/25 Unknown mcg (1,000 unit) capsule fluticasone propionate 50 2 spray intranasal QAM #1 mL 10/29/24 06/22/25 Unknown mcg/actuation nasal spray,suspension (Flonase Allergy Relief) furosemide 20 mg tablet 20 mg PO QAM #30 tabs 10/29/24 06/22/25 Unknown isosorbide mononitrate 60 mg 60 mg PO QAM #30 tabs 10/29/24 06/22/25 Unknown tablet,extended release 24 hr metoprolol succinate 25 mg 12.5 mg (1/2 x 25 mg) PO QAM #15 10/29/24 06/22/25 Unknown tablet,extended release 24 hr tabs multivitamin (Daily-Moiz tablet) 1 tab PO QAM #30 tabs 10/29/24 06/22/25 Unknown rosuvastatin 20 mg tablet 20 mg PO QAM #30 tabs 10/29/24 06/22/25 Unknown ascorbic acid (vitamin C) 1,000 mg 1,000 mg PO QAM 12/10/24 06/22/25 Unknown tablet (Vitamin C) ferrous sulfate 325 mg (65 mg 325 mg PO QAM 12/10/24 06/22/25 Unknown iron) tablet insulin aspart U-100 100 unit/mL See Rx Instructions .Route .COMPLEX 12/10/24 06/22/25 Unknown subcutaneous solution (Novolog U-100 Insulin aspart) metformin 1,000 mg tablet 1,000 mg PO BID 12/10/24 06/22/25 Unknown albuterol sulfate 0.63 mg/3 mL 0.63 mg continuous nebulization Q6 06/22/25 06/22/25 Unknown solution for nebulization PRN Wheezing albuterol sulfate 90 mcg/actuation 2 puff inhalation Q6 PRN Shortness 06/22/25 06/22/25 Unknown aerosol inhaler (Ventolin HFA) Of Breath famotidine 40 mg tablet 40 mg PO QAM 06/22/25 06/22/25 Unknown fluticasone fur. 100 mcg-umeclid 1 inh inhalation QAM 06/22/25 06/22/25 Unknown 62.5 mcg-vilant 25 mcg inhalat.powder (Trelegy Ellipta) lorazepam 0.5 mg tablet 0.5 mg PO Q6 PRN Anxiety 06/22/25 06/22/25 Unknown montelukast 10 mg tablet 10 mg PO HS 06/22/25 06/22/25 Unknown nitroglycerin 0.3 mg sublingual 0.3 mg sublingual .EVERY 5 MINUTES 06/22/25 06/22/25 Unknown tablet PRN Chest Pain potassium chloride 10 mEq 10 meq PO QAM 06/22/25 06/22/25 Unknown capsule,extended release quetiapine 25 mg tablet 25 mg PO HS 06/22/25 06/22/25 Unknown Active Medications Generic Name Dose Route Start Last Admin Trade Name Freq PRN Reason Stop Dose Admin Glucose 4 - 8 tab 06/22/25 20:37 06/23/25 00:16 Glucose 10 Tab/Tube PO 07/22/25 20:36 4 tab UD PRN Administration Hypoglycemia Protocol Protocol Sodium Chloride 1,000 mls @ 75 mls/hr 06/22/25 19:30 06/23/25 07:54 Nss IV 06/23/25 22:53 75 mls/hr .[id number] RAQUEL Infusion Heparin Sodium/Dextrose 25,000 units in 500 mls @ 20 mls/hr 06/22/25 20:37 06/23/25 05:06 Heparin 33344 Unit/500 Ml D5w IV 07/22/25 20:36 1,000 units/hr .Q24H RAQUEL 20 mls/hr Administration Protocol 1,000 UNITS/HR Lactated Ringer's 1,000 mls @ 15 mls/hr 06/23/25 10:15 06/23/25 10:12 Lr IV 06/26/25 10:14 15 mls/hr .Q24H RAQUEL Administration Insulin Aspart 0 units 06/22/25 21:15 06/23/25 05:25 Insulin Aspart Per Unit Charge SC 07/22/25 21:14 9 units Q6 RAQUEL Administration Isosorbide Mononitrate 60 mg 06/23/25 09:00 06/23/25 07:59 Isosorbide [place] Extended Rel 60 Mg Tabcr PO 07/23/25 08:59 60 mg QAM RAQUEL Administration Morphine Sulfate 2 mg 06/22/25 20:43 06/23/25 05:08 Morphine Sulfate 4 Mg/Ml 1 Ml Carp\\Vial IV 07/06/25 20:42 2 mg Q4H PRN Administration Pain Quetiapine Fumarate 25 mg 06/22/25 21:00 06/22/25 21:56 Quetiapine Fumarate 25 Mg Tablet PO 07/22/25 20:59 25 mg HS RAQUEL Administration Rosuvastatin Calcium 20 mg 06/23/25 09:00 06/23/25 07:59 Rosuvastatin Calcium 20 Mg Tab PO 07/23/25 08:59 20 mg QAM RAQUEL Administration NPO Date Last Intake of Fluids: 06/22/25 Time Last Intake of Fluids: 23:59 Date Last Intake of Solids: 06/20/25 Time Last Intake of Solids: 00:01 Past Medical History Medical History COPD (chronic obstructive pulmonary disease) History of pulmonary embolism Chronic atrial fibrillation Benign neoplasm of colon Osteoarthritis History of DVT (deep vein thrombosis) "RLE x 2 in 1980s" 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) "Abnormal left breast mammogram 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 Estrogen receptor positive and progesterone receptor positive Status post lumpectomy with sentinel lymph node biopsy stage [id number] 04/07/2015 Status post completion of radiation therapy 07/21/2015 received 6640 cGy" On 07/25/15 17:54 Jayleen Bates wrote "Abnormal left breast mammogram 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 Estrogen receptor positive and progesterone receptor positive Status post lumpectomy with sentinel lymph node biopsy stage [id number] 04/07/2015 Status post completion of radiation therapy 07/21/2015 received 6640 cGy" On 07/25/15 17:49 Jayleen Bates wrote "Abnormal left breast mammogram 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 Estrogen receptor positive and progesterone receptor positive Status post lumpectomy with sentinel lymph node biopsy stage [id number] 04/07/2015" Exercise / Class Metabolic Activity III < 4 Walking/Shop/Light housework Past Family History Family History Other Breast cancer Diabetes Heart disease Past Surgical History Surgical History H/O partial mastectomy "left breast 04/2015 with lymph node biopsy" H/O arthroscopic knee surgery H/O colonoscopy History of carpal tunnel surgery S/P cervical spinal fusion S/P dilation and curettage H/O vein stripping Past Anesthesia History No Hx of Anesthesia Complications and No Family Hx of Anesthesia Complications History of PONV No Hx of PONV and No Hx of Motion Sickness Social History Smoking Status: Former smoker Do You Dip or Chew Tobacco: No Hx Alcohol Use: No Hx Substance Use: No substance use type: does not use Physical Exam Vital Signs Last Vital Signs Temp 37.3 C 06/23/25 09:54 Pulse 99 H 06/23/25 09:54 Resp 20 06/23/25 09:54 BP 128/70 06/23/25 09:54 Pulse Ox 98 06/23/25 09:54 O2 Del Method Room Air 06/23/25 09:54 Constitutional + obese; no acute distress ENMT Mouth: + dentition abnormality and + edentulous Thyromental Distance: > or= 3.5 Finger Breadths Mallampati Class: III Neck normal visual inspection and + limited neck extension Respiratory normal respiratory effort; no respiratory distress Auscultation: lungs clear to auscultation bilaterally Cardiovascular Rate/Rhythm: regular rate and regular rhythm Heart Sounds: no murmur Musculoskeletal Spine: normal cervical ROM Psychiatric Orientation: alert and oriented x 3 Testing Laboratory Results 06/23/25 03:51 06/23/25 03:51 PT 16.1 Seconds (9.0-12.0) H 06/23/25 03:51 INR 1.6 (0.9-1.1) H 06/23/25 03:51 Hemoglobin A1c 14.1 % (4.5-5.6) H 06/23/25 03:51 Urine Color Dark Yellow 06/22/25 16:50 Urine Appearance Cloudy (Clear) A 06/22/25 16:50 Urine pH 5.0 (4.5-7.5) 06/22/25 16:50 Ur Specific [place] 1.020 (1.000-1.030) 06/22/25 16:50 Urine Protein 1+ (Negative) H 06/22/25 16:50 Urine Glucose (UA) 3+ (Negative) H 06/22/25 16:50 Urine Ketones Trace (Negative) H 06/22/25 16:50 Urine Nitrite Positive (Negative) A 06/22/25 16:50 Ur Leukocyte Esterase 1+ (Negative) H 06/22/25 16:50 Urine WBC (Auto) >50 /hpf (0-5) H 06/22/25 16:50 Urine RBC (Auto) 0-2 /hpf (0-2) 06/22/25 16:50 U Hyaline Cast (Auto) 11-20 /lpf (0-2) H 06/22/25 16:50 U Epithel Cells (Auto) 3-5 /hpf (0-2) H 06/22/25 16:50 Urine Bacteria (Auto) 2+ (None Seen) H 06/22/25 16:50 06/23/25 06/23/25 06/23/25 09:47 05:18 05:15 POC Glucose 199 H 263 H > 600 H* 06/23/25 06/23/25 00:46 00:13 POC Glucose 106 H 75 Day of Procedure Evaluation. Date of Surgery June 23, 2025 Height/Weight Height: 5 ft 5 in Weight: 96.8 kg Vital Signs Last Vital Signs Temp 37.3 C 06/23/25 09:54 Pulse 99 H 06/23/25 09:54 Resp 20 06/23/25 09:54 BP 128/70 06/23/25 09:54 Pulse Ox 98 06/23/25 09:54 O2 Del Method Room Air 06/23/25 09:54 Allergies Allergy/AdvReac Type Severity Reaction Status Date / Time alendronate sodium Allergy Severe DIFFICULTY Verified 06/23/25 09:50 BREATHING/BURNING SENSATION esomeprazole Allergy Intermediate Hives Verified 06/23/25 09:50 Medications Home Medications Medication Instructions Recorded Confirmed Last Taken warfarin 5 mg tablet 7.25 mg PO QPM 01/12/20 06/22/25 10/20/24 cyanocobalamin (vitamin B-12) 1,000 mcg sublingual QAM 09/21/22 06/22/25 10/21/24 1,000 mcg sublingual tablet cholecalciferol (vitamin D3) 25 1,000 unit PO QAM #30 caps 10/29/24 06/22/25 Unknown mcg (1,000 unit) capsule fluticasone propionate 50 2 spray intranasal QAM #1 mL 10/29/24 06/22/25 Unknown mcg/actuation nasal spray,suspension (Flonase Allergy Relief) furosemide 20 mg tablet 20 mg PO QAM #30 tabs 10/29/24 06/22/25 Unknown isosorbide mononitrate 60 mg 60 mg PO QAM #30 tabs 10/29/24 06/22/25 Unknown tablet,extended release 24 hr metoprolol succinate 25 mg 12.5 mg (1/2 x 25 mg) PO QAM #15 10/29/24 06/22/25 Unknown tablet,extended release 24 hr tabs multivitamin (Daily-Moiz tablet) 1 tab PO QAM #30 tabs 10/29/24 06/22/25 Unknown rosuvastatin 20 mg tablet 20 mg PO QAM #30 tabs 10/29/24 06/22/25 Unknown ascorbic acid (vitamin C) 1,000 mg 1,000 mg PO QAM 12/10/24 06/22/25 Unknown tablet (Vitamin C) ferrous sulfate 325 mg (65 mg 325 mg PO QAM 12/10/24 06/22/25 Unknown iron) tablet insulin aspart U-100 100 unit/mL See Rx Instructions .Route .COMPLEX 12/10/24 06/22/25 Unknown subcutaneous solution (Novolog U-100 Insulin aspart) metformin 1,000 mg tablet 1,000 mg PO BID 12/10/24 06/22/25 Unknown albuterol sulfate 0.63 mg/3 mL 0.63 mg continuous nebulization Q6 06/22/25 06/22/25 Unknown solution for nebulization PRN Wheezing albuterol sulfate 90 mcg/actuation 2 puff inhalation Q6 PRN Shortness 06/22/25 06/22/25 Unknown aerosol inhaler (Ventolin HFA) Of Breath famotidine 40 mg tablet 40 mg PO QAM 06/22/25 06/22/25 Unknown fluticasone fur. 100 mcg-umeclid 1 inh inhalation QAM 06/22/25 06/22/25 Unknown 62.5 mcg-vilant 25 mcg inhalat.powder (Trelegy Ellipta) lorazepam 0.5 mg tablet 0.5 mg PO Q6 PRN Anxiety 06/22/25 06/22/25 Unknown montelukast 10 mg tablet 10 mg PO HS 06/22/25 06/22/25 Unknown nitroglycerin 0.3 mg sublingual 0.3 mg sublingual .EVERY 5 MINUTES 06/22/25 06/22/25 Unknown tablet PRN Chest Pain potassium chloride 10 mEq 10 meq PO QAM 06/22/25 06/22/25 Unknown capsule,extended release quetiapine 25 mg tablet 25 mg PO HS 06/22/25 06/22/25 Unknown Active Medications Generic Name Dose Route Start Last Admin Trade Name Freq PRN Reason Stop Dose Admin Glucose 4 - 8 tab 06/22/25 20:37 06/23/25 00:16 Glucose 10 Tab/Tube PO 07/22/25 20:36 4 tab UD PRN Administration Hypoglycemia Protocol Protocol Sodium Chloride 1,000 mls @ 75 mls/hr 06/22/25 19:30 06/23/25 07:54 Nss IV 06/23/25 22:53 75 mls/hr .[id number] RAQUEL Infusion Heparin Sodium/Dextrose 25,000 units in 500 mls @ 20 mls/hr 06/22/25 20:37 06/23/25 05:06 Heparin 77485 Unit/500 Ml D5w IV 07/22/25 20:36 1,000 units/hr .Q24H RAQUEL 20 mls/hr Administration Protocol 1,000 UNITS/HR Lactated Ringer's 1,000 mls @ 15 mls/hr 06/23/25 10:15 06/23/25 10:12 Lr IV 06/26/25 10:14 15 mls/hr .Q24H RAQUEL Administration Insulin Aspart 0 units 06/22/25 21:15 06/23/25 05:25 Insulin Aspart Per Unit Charge SC 07/22/25 21:14 9 units Q6 RAQUEL Administration Isosorbide Mononitrate 60 mg 06/23/25 09:00 06/23/25 07:59 Isosorbide [place] Extended Rel 60 Mg Tabcr PO 07/23/25 08:59 60 mg QAM RAQUEL Administration Morphine Sulfate 2 mg 06/22/25 20:43 06/23/25 05:08 Morphine Sulfate 4 Mg/Ml 1 Ml Carp\\Vial IV 07/06/25 20:42 2 mg Q4H PRN Administration Pain Quetiapine Fumarate 25 mg 06/22/25 21:00 06/22/25 21:56 Quetiapine Fumarate 25 Mg Tablet PO 07/22/25 20:59 25 mg HS RAQUEL Administration Rosuvastatin Calcium 20 mg 06/23/25 09:00 06/23/25 07:59 Rosuvastatin Calcium 20 Mg Tab PO 07/23/25 08:59 20 mg QAM RAQUEL Administration Past Anesthesia History No Hx of Anesthesia Complications and No Family Hx of Anesthesia Complications History of PONV No Hx of PONV and No Hx of Motion Sickness NPO Date Last Intake of Fluids: 06/22/25 Time Last Intake of Fluids: 23:59 Date Last Intake of Solids: 06/20/25 Time Last Intake of Solids: 00:01 HCG & FBG Results 06/23/25 06/23/25 06/23/25 09:47 05:18 05:15 POC Glucose 199 H 263 H > 600 H* 06/23/25 06/23/25 00:46 00:13 POC Glucose 106 H 75 Home Medications Home Medications Medication Instructions Recorded Confirmed Last Taken warfarin 5 mg tablet 7.25 mg PO QPM 01/12/20 06/22/25 10/20/24 cyanocobalamin (vitamin B-12) 1,000 mcg sublingual QAM 09/21/22 06/22/25 10/21/24 1,000 mcg sublingual tablet cholecalciferol (vitamin D3) 25 1,000 unit PO QAM #30 caps 10/29/24 06/22/25 Unknown mcg (1,000 unit) capsule fluticasone propionate 50 2 spray intranasal QAM #1 mL 10/29/24 06/22/25 Unknown mcg/actuation nasal spray,suspension (Flonase Allergy Relief) furosemide 20 mg tablet 20 mg PO QAM #30 tabs 10/29/24 06/22/25 Unknown isosorbide mononitrate 60 mg 60 mg PO QAM #30 tabs 10/29/24 06/22/25 Unknown tablet,extended release 24 hr metoprolol succinate 25 mg 12.5 mg (1/2 x 25 mg) PO QAM #15 10/29/24 06/22/25 Unknown tablet,extended release 24 hr tabs multivitamin (Daily-Moiz tablet) 1 tab PO QAM #30 tabs 10/29/24 06/22/25 Unknown rosuvastatin 20 mg tablet 20 mg PO QAM #30 tabs 10/29/24 06/22/25 Unknown ascorbic acid (vitamin C) 1,000 mg 1,000 mg PO QAM 12/10/24 06/22/25 Unknown tablet (Vitamin C) ferrous sulfate 325 mg (65 mg 325 mg PO QAM 12/10/24 06/22/25 Unknown iron) tablet insulin aspart U-100 100 unit/mL See Rx Instructions .Route .COMPLEX 12/10/24 06/22/25 Unknown subcutaneous solution (Novolog U-100 Insulin aspart) metformin 1,000 mg tablet 1,000 mg PO BID 12/10/24 06/22/25 Unknown albuterol sulfate 0.63 mg/3 mL 0.63 mg continuous nebulization Q6 06/22/25 06/22/25 Unknown solution for nebulization PRN Wheezing albuterol sulfate 90 mcg/actuation 2 puff inhalation Q6 PRN Shortness 06/22/25 06/22/25 Unknown aerosol inhaler (Ventolin HFA) Of Breath famotidine 40 mg tablet 40 mg PO QAM 06/22/25 06/22/25 Unknown fluticasone fur. 100 mcg-umeclid 1 inh inhalation QAM 06/22/25 06/22/25 Unknown 62.5 mcg-vilant 25 mcg inhalat.powder (Trelegy Ellipta) lorazepam 0.5 mg tablet 0.5 mg PO Q6 PRN Anxiety 06/22/25 06/22/25 Unknown montelukast 10 mg tablet 10 mg PO HS 06/22/25 06/22/25 Unknown nitroglycerin 0.3 mg sublingual 0.3 mg sublingual .EVERY 5 MINUTES 06/22/25 06/22/25 Unknown tablet PRN Chest Pain potassium chloride 10 mEq 10 meq PO QAM 06/22/25 06/22/25 Unknown capsule,extended release quetiapine 25 mg tablet 25 mg PO HS 06/22/25 06/22/25 Unknown Active Medications Generic Name Dose Route Start Last Admin Trade Name Freq PRN Reason Stop Dose Admin Glucose 4 - 8 tab 06/22/25 20:37 06/23/25 00:16 Glucose 10 Tab/Tube PO 07/22/25 20:36 4 tab UD PRN Administration Hypoglycemia Protocol Protocol Sodium Chloride 1,000 mls @ 75 mls/hr 06/22/25 19:30 06/23/25 07:54 Nss IV 06/23/25 22:53 75 mls/hr .[id number] RAQUEL Infusion Heparin Sodium/Dextrose 25,000 units in 500 mls @ 20 mls/hr 06/22/25 20:37 06/23/25 05:06 Heparin 84182 Unit/500 Ml D5w IV 07/22/25 20:36 1,000 units/hr .Q24H RAQUEL 20 mls/hr Administration Protocol 1,000 UNITS/HR Lactated Ringer's 1,000 mls @ 15 mls/hr 06/23/25 10:15 06/23/25 10:12 Lr IV 06/26/25 10:14 15 mls/hr .Q24H RAQUEL Administration Insulin Aspart 0 units 06/22/25 21:15 06/23/25 05:25 Insulin Aspart Per Unit Charge SC 07/22/25 21:14 9 units Q6 RAQUEL Administration Isosorbide Mononitrate 60 mg 06/23/25 09:00 06/23/25 07:59 Isosorbide [place] Extended Rel 60 Mg Tabcr PO 07/23/25 08:59 60 mg QAM RAQUEL Administration Morphine Sulfate 2 mg 06/22/25 20:43 06/23/25 05:08 Morphine Sulfate 4 Mg/Ml 1 Ml Carp\\Vial IV 07/06/25 20:42 2 mg Q4H PRN Administration Pain Quetiapine Fumarate 25 mg 06/22/25 21:00 06/22/25 21:56 Quetiapine Fumarate 25 Mg Tablet PO 07/22/25 20:59 25 mg HS RAQUEL Administration Rosuvastatin Calcium 20 mg 06/23/25 09:00 06/23/25 07:59 Rosuvastatin Calcium 20 Mg Tab PO 07/23/25 08:59 20 mg QAM RAQUEL Administration Exercise / Class Metabolic Activity Metabolic Activity: III < 4 Walking/Shop/Light housework Physical Exam Constitutional: + obese; no acute distress Mouth: + dentition abnormality and + edentulous Thyromental Distance: > or= 3.5 Finger Breadths Mallampati Class: III Neck: + visual inspection normal and + limited neck extension Respiratory: + respiratory effort normal and + clear to auscultation bilaterally; no respiratory distress Cardiovascular: + regular rate and + regular rhythm; no murmur Musculoskeletal: no limited cervical ROM Psychiatric: + alert and + oriented x 3 ASA ASA4 Proposed Anesthesia Proposed Anesthesia: MAC Risk / Benefits Reviewed With: PT / POA / Parent / Guardian, Accepts Plan and Informed Consent Obtained
[2025-06-23] MEDS ORDERED: PROMETHAZINE HCL 6.25 MG in SODIUM CHLORIDE 0.9% 50 ML IV PRN (10:47)
[2025-06-23] MEDS ORDERED: ATROPINE SULFATE 0.1 MG/ML 10ML SYR IV PRN (10:47)
[2025-06-23 11:36] LABS: ANTI-Xa, UFH(UnfractionatedHep 0.24 IU/ml (0.3-0.7)
--- NOTE | 2025-06-23 12:13 | Operative Report ---
PG Post Operative Report Pre & Post Diagnosis Operation Date: 06/23/25 07:50 Pre-Op Diagnosis: right Ureteral stone Post-Op Diagnosis: right Ureteral stone, purulent urine I identified the patient and participated in the time-out.: Yes Procedure Operation Date: 06/23/25 07:50 Actual Procedures p Cystoscopy, stone manipulation, right ureteral Stent Placement(Right) - Juice Woods MD Surgeon Juice Woods MD Oncology Specialist na Estimated Blood Loss 0 Findings Consistent with Post-Op Diagnosis purulent drainage right ureteral orifice Specimens none Drains right 6 fr x 24 cm ureteral stent, 20 fr ortega Description of Procedure SURGEON: Dr. Woods FUR COMBER: N/A PREOPERATIVE DIAGNOSIS: right ureteral stone POSTOPERATIVE DIAGNOSIS: Same, purulent right ureter drainage PROCEDURE: cystoscopy wire placement with stone manipulation and right ureteral stent placement FINDINGS: 1. right ureteral stent placed curls in renal pelvis and bladder string removed ANESTHESIA: General ESTIMATED BLOOD LOSS: N/A TUBES AND DRAINS: right ureteral stent 6 fr x 24 cm SPECIMENS: none COMPLICATIONS: none INDICATIONS FOR PROCEDURE: See preoperative diagnosis OPERATIVE DETAIL: The patient was prepped and draped in the usual fashion in the operating room. Antibiotics were given prior to starting the procedure. A well lubricated rigid cystoscope was inserted into the urethral meatus and advanced into the bladder. Care was taken to keep the lumen in the center of view. Cystourethroscopy was completed and remarkable for purulent cloudy urine with white debris. The left and right ureteral orifices were identified in the orthotopic position s. A wire was placed into the right UO, a retrograde pyelogram was deferred due to purulent milky drainage from the right ureter after wire placement as I did not want to increase intrarenal pressure and increase her risk of fulminant sepsis. The wire was manipulated past the stone into the kidney under flouroscopy. A 6 fr x 24 cm ureteral stent was then placed with positioning confirmed in the bladder and kidney visually and fluoroscopically. The string was removed. All parts of the cystoscope and ureteroscope were removed intact from the patient. The patient tolerated the procedure well. Please note thatI was present for and directly performed all components of the procedure. I attest to the content of the Intraoperative Record and any orders documented therein. Any exceptions are noted below.
--- NOTE | 2025-06-23 12:55 | Hospitalist Progress Note ---
Date of Service June 23, 2025 Assessment & Plan (1) Ureteral stone: (2) CHF (congestive heart failure): (3) Insulin dependent type 2 diabetes mellitus: (4) Depression: (5) Morbid obesity: (6) HX: breast cancer: Plan 75 y/o F with 6mm ureteral stone with hydronephrosis presents with 4 days of vomiting and abdominal pain. Sepsis Complicated urinary tract infection Obstructive uropathy --S/P cystoscopy, stone manipulation, right ureteral stent placement by Dr. Woods on 06/23/2025 --CT ABD:[id number] right-sided hydroureteronephrosis secondary to an obstructing 6 cm calculus of the right ureter at the level of L4. Air within the right renal collecting system and urinary bladder lumen may be secondary to instrumentation versus gas forming organism. Correlate with urinalysis. -- Urine culture pending Continue IV Rocephin Appreciate urology input Pain control as needed Acute kidney injury Secondary to above Creatinine 1.7 today Continue IV fluids Avoid nephrotoxic agents as able Monitor renal function Uncontrolled IDDM2: Serum glucose level 506 Last A1c: 14.9 from 06/01/25 Uses an insulin pump at home [facility] FSBS Glycemic pharmacy ems educator consult A-fib RVR Metoprolol succinate increased to 12.5 mg twice a day Warfarin held for procedure Currently on IV heparin for today Monitor INR 1.6 today Plan to resume Coumadin tomorrow H/O DVT: H/O PE: Subtherapeutic INR: RLE x2 in Resume Coumadin once cleared by urology likely tomorrow Currently on IV heparin HFpEF: Most recent ECHO: 09/02/2024: G1DDX, moderate LVH, mild MR Monitor volume status H/O Breast CA: s/p partial mastectomy 2020 COPD Continue home inhalers DVT Px: IV heparin Resume warfarin as able Disposition: PT OT prior to discharge CODE STATUS Full code Admission and Anticipated Discharge Date Admission Date: June 22, 2025 Subjective Patient is seen and examined at bedside Tolerated the procedure well Discussed with urology today Right groin pain pain, nausea resolved Offers no other complaints today Denies any chest pain, dyspnea, dizziness Review of Systems Review of Systems: All systems reviewed & are unremarkable except as noted in Subjective Physical Exam Physical Exam: Physical Exam: Vitals signs as noted above General Appearance: Overweight, no apparent distress Head: normocephalic, Atraumatic Eyes: normal inspection, EOMI Neck: supple, Trachea midline Respiratory/Chest: Normal breath sounds, CTA, No accessory muscle use Cardiovascular: Irregularly irregular, +No murmur Abdomen/GI:Soft, Non tender, Bowel sounds present Extremities/Musculoskeletal:normal inspection, no edema Neurologic/Psych:AAOX3, grossly no focal neurological deficits Skin: normal color, warm Results & Data Results & Data Vital Signs (Past 12 Hours) Vital Signs Temp Pulse Pulse Pulse Resp BP Pulse Ox 06/23/25 12:47 36.9 C 96 H 21 131/73 96 06/23/25 12:40 36.9 C 99 H 20 131/73 96 06/23/25 12:30 98 H 19 122/78 94 06/23/25 12:20 98 H 17 129/75 100 06/23/25 12:13 36.6 C 99 H 18 121/76 100 06/23/25 09:54 37.3 C 99 H 20 128/70 98 06/23/25 07:41 107 H 06/23/25 07:35 37.1 C 96 H 18 135/73 94 06/23/25 03:03 37.4 C 103 H 18 114/65 93 O2 Del Method O2 Flow Rate 06/23/25 12:47 Room Air 06/23/25 12:40 Room Air 06/23/25 12:30 Room Air 06/23/25 12:20 Room Air 06/23/25 12:13 Oxymask 7 06/23/25 09:54 Room Air 06/23/25 07:41 06/23/25 07:35 Room Air 06/23/25 03:03 Room Air Laboratory Results Short CBC 06/22/25 06/23/25 Range/Units 13:37 03:51 WBC 12.97 H 14.37 H (4.8-10.8) K/ul Hgb 13.4 11.0 L (12.0-16.0) g/dL Hct 37.9 31.9 L (37.0-47.0) % Plt Count 205 128 L (130-400) K/uL BMP 06/22/25 06/23/25 13:37 03:51 Sodium 127 L 134 L Potassium 4.5 4.3 Chloride 93 L 103 Carbon Dioxide 24 23 BUN 28 H 26 H Creatinine 1.83 H 1.70 H Glucose 506 H* 180 H Calcium 9.3 8.1 L Liver Function 06/22/25 Range/Units 13:37 Total Bilirubin 1.4 H (0.2-1.0) mg/dl AST 25 (13-39) U/L ALT 15 (7-52) U/L Alkaline Phosphatase 100 (34-104) U/L Albumin 3.6 (3.4-5.0) gm/dl Urine 06/22/25 Range/Units 16:50 Urine Color Dark Yellow Urine Appearance Cloudy A (Clear) Urine pH 5.0 (4.5-7.5) Ur Specific [place] 1.020 (1.000-1.030) Urine Protein 1+ H (Negative) Urine Glucose (UA) 3+ H (Negative) (2) CHF (congestive heart failure) Heart failure chronicity: acute on chronic Heart failure type: unspecified Qualified Code(s): I50.9 - Heart failure, unspecified (4) Depression Depression Type: unspecified Qualified Code(s): F32.A - Depression, unspecified
[2025-06-23] MEDS: FLUTICASONE FUROATE 100MCG 14 PUFFS/INHALER INH SCH (13:19)
[2025-06-23] MEDS: FLUTICASONE PROPIONATE NA SPR 16 GM BTL SCH (13:20)
[2025-06-23] MEDS: FAMOTIDINE 40 MG TABLET PO SCH (13:20)
[2025-06-23] MEDS: UMECLIDINIUM/VILANTEROL 62.5/25MCG 7 PUFFS/INHALER INH SCH (13:20)
--- NOTE | 2025-06-23 13:52 | Fluoroscopy Report ---
FL KUB CLINICAL HISTORY: CYSTO/RETROGRADE COMPARISON STUDY: None FLUOROSCOPY TIME: 8 seconds FLUOROSCOPY IMAGES: 3 EXPOSURE DOSE: 5 mGy FINDINGS: Fluoroscopy was provided for urologic procedure. IMPRESSION: Intraoperative fluoroscopy. ACT 112: Negative or not required by law. Electronically signed by: Marcial Aaron M.D. 06/23/2025 1:50 PM
[2025-06-23] MEDS: GENTAMICIN SULFATE 160 MG in DEXTROSE 5% 100 ML IV ONE (14:21)
[2025-06-23] MEDS: INSULIN ASPART PER UNIT CHARGE SC SCH (18:00)
[2025-06-23] MEDS: cefTRIAXone SODIUM 2,000 MG/50 ML BAG IV SCH (18:04)
[2025-06-23 19:41] LABS: ANTI-Xa, UFH(UnfractionatedHep 0.18 IU/ml (0.3-0.7)
[2025-06-23] MEDS: LANTUS PER UNIT CHARGE SQ SCH (20:30)
[2025-06-23] MEDS: MONTELUKAST SODIUM 10 MG TABLET PO SCH (21:16)
[2025-06-24] MEDS ORDERED: INSULIN ASPART PER UNIT CHARGE SC SCH
[2025-06-24] MEDS: INSULIN ASPART PER UNIT CHARGE SC SCH (00:15)
[2025-06-24 03:05] LABS: Hematocrit (blood only) 28.8 % (37.0-47.0); Hemoglobin 9.9 g/dL (12.0-16.0); Mean Corpuscular Hemoglobin 30.8 pg (25.0-34.0); Mean Corpuscular Volume 89.7 fL (80.0-100.0); Platelet Count 114 K/uL (130-400); RDW Standard Deviation 45.5 fL (36.4-46.3); Red Blood Count 3.21 M/uL (4.20-5.40); White Blood Count 9.25 K/ul (4.8-10.8)
[2025-06-24 03:22] LABS: Anion Gap 7.0 (3-11); Blood Urea Nitrogen 31.0 mg/dl (6-23); Calcium 8.0 mg/dl (8.6-10.3); Carbon Dioxide 25.0 mmol/L (21-32); Chloride 102.0 mmol/L (98-107); Creatinine Clr Calc Pharmacy 34.2 ml/min; Glucose 267.0 mg/dl (70-99(Fasting)); Potassium 4.2 mmol/L (3.5-5.1); Sodium 134.0 mmol/L (136-145)
[2025-06-24 03:42] LABS: ANTI-Xa, UFH(UnfractionatedHep 0.29 IU/ml (0.3-0.7)
[2025-06-24 03:47] LABS: INR 1.6 (0.9-1.1); Prothrombin Time 16.8 Seconds (9.0-12.0)
[2025-06-24] MEDS: LANTUS PER UNIT CHARGE SC SCH (08:55)
--- NOTE | 2025-06-24 09:10 | Hospitalist Progress Note ---
Date of Service June 24, 2025 Assessment & Plan (1) Ureteral stone: (2) CHF (congestive heart failure): (3) Insulin dependent type 2 diabetes mellitus: (4) Depression: (5) Morbid obesity: (6) HX: breast cancer: Plan 75 y/o F with 6mm ureteral stone with hydronephrosis presents with 4 days of vomiting and abdominal pain. Sepsis Complicated urinary tract infection Obstructive uropathy --CT ABD:[id number] right-sided hydroureteronephrosis secondary to an obstructing 6 cm calculus of the right ureter at the level of L4. Air within the right renal collecting system and urinary bladder lumen may be secondary to instrumentation versus gas forming organism. Correlate with urinalysis. -S/P cystoscopy, stone manipulation, right ureteral stent placement by Dr. Woods on 06/23/2025 -- Urine culture growing E coli Continue IV Ceftriaxone and follow up sensitivities Discussed with Urology who recommends keeping ortega till tomorrow Acute kidney injury Secondary to above Cr was 1.83 on admission. Down to 1.61 today Continue IV fluids for now Avoid nephrotoxic agents as able Monitor renal function Uncontrolled IDDM2: Last A1c: 14.9 from 06/01/25 Uses an insulin pump at home [facility] FSBS Glycemic pharmacy on board DM educator recs noted. Needs to follow up with DM MTM A-fib RVR Metoprolol succinate increased to 25mg daily Currently on IV heparin Resume warfarin today. Monitor INR H/O DVT: H/O PE: Subtherapeutic INR: RLE x2 in HFpEF: Most recent ECHO: 09/02/2024: G1DDX, moderate LVH, mild MR Monitor volume status H/O Breast CA: s/p partial mastectomy 2020 COPD Continue home inhalers Get PT/OT eval. Reports ambulatory dysfunction at home DVT Px: on heparin gtt. Warfarin resumed CODE STATUS Full code I spent a total of 50 minutes coordinating, documenting and providing care for this patient excluding time spent in performance of separately billed services Admission and Anticipated Discharge Date Admission Date: June 22, 2025 Subjective Patient seen and examined Reports feeling better No abd pain, nausea, vomiting, fever or chills No new complaints today Physical Exam Constitutional: + well hydrated; no acute distress Eyes: PERRL, conjunctivae normal, anicteric sclerae ENMT: external ear and nose normal, oropharynx normal Respiratory: normal respiratory effort, lungs clear to auscultation Cardiovascular: Rate/Rhythm: regular rate and regular rhythm Heart Sounds: + murmur Gastrointestinal (Abdomen): normal bowel sounds, soft, nontender, no hepatosplenomegaly Musculoskeletal: No pedal edema Neurologic: PERRL, EOMI, accommodation nl, no face palsy, no dysarthria Psychiatric: A+Ox3, euthymic affect Genitourinary: Ortega in situ Results & Data Results & Data Vital Signs (Past 12 Hours) Vital Signs Temp Pulse Pulse Resp BP BP Pulse Ox 06/24/25 08:16 06/24/25 07:48 97 H 06/24/25 07:22 36.5 C 98 H 18 121/70 94 06/24/25 03:12 36.8 C 84 20 97/59 L 94 06/23/25 22:58 37.1 C 96 H 20 97/58 L 94 06/23/25 21:56 96 H O2 Del Method 06/24/25 08:16 Room Air 06/24/25 07:48 06/24/25 07:22 Room Air 06/24/25 03:12 Room Air 06/23/25 22:58 Room Air 06/23/25 21:56 Laboratory Results Abnormal lab results 06/23/25 06/23/25 06/23/25 Range/Units 17:06 18:44 20:03 RBC (4.20-5.40) M/uL Hgb (12.0-16.0) g/dL Hct (37.0-47.0) % Plt Count (130-400) K/uL PT (9.0-12.0) Seconds INR (0.9-1.1) Heparin Anti-Xa, Unfract 0.18 L (0.3-0.7) IU/ml Sodium (136-145) mmol/L BUN (6-23) mg/dl Creatinine (0.6-1.2) mg/dl Glucose (70-99(Fasting)) mg/dl POC Glucose 269 H 337 H* (70-99) mg/dl Calcium (8.6-10.3) mg/dl 06/23/25 06/23/25 06/23/25 Range/Units 20:05 22:17 22:21 RBC (4.20-5.40) M/uL Hgb (12.0-16.0) g/dL Hct (37.0-47.0) % Plt Count (130-400) K/uL PT (9.0-12.0) Seconds INR (0.9-1.1) Heparin Anti-Xa, Unfract (0.3-0.7) IU/ml Sodium (136-145) mmol/L BUN (6-23) mg/dl Creatinine (0.6-1.2) mg/dl Glucose (70-99(Fasting)) mg/dl POC Glucose 346 H* 304 H* 304 H* (70-99) mg/dl Calcium (8.6-10.3) mg/dl 06/24/25 06/24/25 06/24/25 Range/Units 00:06 02:46 02:58 RBC 3.21 L (4.20-5.40) M/uL Hgb 9.9 L (12.0-16.0) g/dL Hct 28.8 L (37.0-47.0) % Plt Count 114 L (130-400) K/uL PT 16.8 H (9.0-12.0) Seconds INR 1.6 H (0.9-1.1) Heparin Anti-Xa, Unfract 0.29 L (0.3-0.7) IU/ml Sodium 134 L (136-145) mmol/L BUN 31 H (6-23) mg/dl Creatinine 1.61 H (0.6-1.2) mg/dl Glucose 267 H (70-99(Fasting)) mg/dl POC Glucose 268 H (70-99) mg/dl Calcium 8.0 L (8.6-10.3) mg/dl 06/24/25 06/24/25 06/24/25 Range/Units 04:06 07:57 09:43 RBC (4.20-5.40) M/uL Hgb (12.0-16.0) g/dL Hct (37.0-47.0) % Plt Count (130-400) K/uL PT (9.0-12.0) Seconds INR (0.9-1.1) Heparin Anti-Xa, Unfract 0.24 L (0.3-0.7) IU/ml Sodium (136-145) mmol/L BUN (6-23) mg/dl Creatinine (0.6-1.2) mg/dl Glucose (70-99(Fasting)) mg/dl POC Glucose 234 H 236 H (70-99) mg/dl Calcium (8.6-10.3) mg/dl 06/24/25 Range/Units 12:16 RBC (4.20-5.40) M/uL Hgb (12.0-16.0) g/dL Hct (37.0-47.0) % Plt Count (130-400) K/uL PT (9.0-12.0) Seconds INR (0.9-1.1) Heparin Anti-Xa, Unfract (0.3-0.7) IU/ml Sodium (136-145) mmol/L BUN (6-23) mg/dl Creatinine (0.6-1.2) mg/dl Glucose (70-99(Fasting)) mg/dl POC Glucose 275 H (70-99) mg/dl Calcium (8.6-10.3) mg/dl (2) CHF (congestive heart failure) Heart failure chronicity: acute on chronic Heart failure type: unspecified Qualified Code(s): I50.9 - Heart failure, unspecified (4) Depression Depression Type: unspecified Qualified Code(s): F32.A - Depression, unspecified
--- NOTE | 2025-06-24 09:25 | Urology Progress Note ---
Date of Service June 24, 2025 Assessment & Plan (1) SOL (acute kidney injury): (2) Urinary tract infection: (3) Calculus of right ureter: Plan: - Pt POD#1 s/p cystoscopy and right ureteral stent placement - Doing well, progressing as expected - Afebrile, stable vitals - Lab work reviewed - creatinine 1.61, WBC 9.25 - Urine culture with E. coli - Recommend continue broad-spectrum antibiotics and narrow per sensitivity data when available - Tolerating right ureteral stent with minimal bother - Maintain Cisneros catheter today to maximize drainage, can remove prior to discharge - Okay to d/c from perspective when medically stable - Recommend d/c with course of PO antibiotics per culture, Tamsulosin, prn Pyridium and prn pain medication for stent management - Expected clinical course reviewed, all questions answered - Will arrange outpatient follow-up with our service to set up definitive stone treatment - will sign off, please contact our service with any additional questions or concerns Admission and Anticipated Discharge Date Admission Date: June 22, 2025 Subjective Patient seen and examined at bedside this morning. She is resting in bed. No issues overnight. No flank pain. No fevers, chills, nausea or vomiting. Cisneros intact. Review of Systems Constitutional: as per Subjective / HPI Genitourinary: as per Subjective / HPI Physical Exam Constitutional: no acute distress Respiratory: normal respiratory effort; no respiratory distress and no labored breathing Gastrointestinal (Abdomen): Inspection/Auscultation: abdomen normal to inspection Musculoskeletal: Head/Neck/Chest: normocephalic Neurologic: moves all extremities and awake Psychiatric: Orientation: alert and oriented x 3 Genitourinary: Cisneros draining minimally blood tinged urine Results & Data Vital Signs (Past 12 Hours) Vital Signs Temp Pulse Pulse Resp BP BP Pulse Ox 06/24/25 08:16 06/24/25 07:48 97 H 06/24/25 07:22 36.5 C 98 H 18 121/70 94 06/24/25 03:12 36.8 C 84 20 97/59 L 94 06/23/25 22:58 37.1 C 96 H 20 97/58 L 94 06/23/25 21:56 96 H O2 Del Method 06/24/25 08:16 Room Air 06/24/25 07:48 06/24/25 07:22 Room Air 06/24/25 03:12 Room Air 06/23/25 22:58 Room Air 06/23/25 21:56 PG Care Time/CCT Total # of Minutes Spent Total Time Spent with Patient: Total time spent is greater than 50% in coordination of care (as documented) at patient's floor/unit and/or counseling patient: Coding Level of Care Code 25105 SUB INP/OBS CARE 2/35MIN Diagnoses SOL (acute kidney injury) N17.9 Urinary tract infection N39.0 Calculus of right ureter N20.1
[2025-06-24 10:22] LABS: ANTI-Xa, UFH(UnfractionatedHep 0.24 IU/ml (0.3-0.7)
--- NOTE | 2025-06-24 14:35 | Pharmacy Report ---
Pharmacy Glycemic Short Note 2 - Date of Service June 24, 2025 - Glycemic Short BSG Results (Last 24 hours): 06/23/25 06/23/25 06/23/25 17:06 20:03 20:05 Glucose POC Glucose 269 H 337 H* 346 H* 06/23/25 06/23/25 06/24/25 22:17 22:21 00:06 Glucose POC Glucose 304 H* 304 H* 268 H 06/24/25 06/24/25 06/24/25 02:46 04:06 07:57 Glucose 267 H POC Glucose 234 H 236 H 06/24/25 12:16 Glucose POC Glucose 275 H OUTPATIENT ANTIDIABETIC REGIMEN: * NovoLog pump * Basal 7.2 units/hr 00-06, 8 units/hr 06-12, 8.9 units/hr 12-00 * Bolus 25 units with breakfast, 45 units with lunch, and 40 units with supper, CF 10 * metformin (Settings pulled from last admission) ASSESSMENT: 06/24 * Patient received total of 165 units of insulin yesterday, of which 90 units were basal insulin * Fasting BSG 236 mg/dL - will provide slight increase in basal / steroids ordered in OR yesterday later morning - likely seeing effects still today * Tighten novolog CF/CR more today 06/23 * 75 year old female admitted with ureteral stone. Type 2 diabetic managed on insulin pump. Pharmacy consulted for glycemic management. BSGs>500 on admission. Pump removed last evening and given Lantus 40 units x 1 dose. BSG trending down to 75 mg/dL overnight - given 4 glucose tabs per nursing notes. BSGs >200 this morning. NPO for possible procedure - will trial Lantus 30 units BID (50% reduction in outpatient dosing - Toujeo 60 units bid/pump failure dosing) while NPO PLAN FOR INPATIENT GLYCEMIC CONTROL: * Hold outpatient oral diabetes medications * Basal insulin * Lantus 50 units daily in AM * Lantus 40-60 units HS * Bolus insulin * NovoLog per scale ACHS or Q6hrs while NPO * Goal Range: Low 110 mg/dL - High 140 mg/dL * Correction Factor: 8 mg/dL/unit * Nutritional / Prandial insulin per carb ratio of 1 unit per 2.5 grams CHO consumed
[2025-06-24] MEDS: WARFARIN SOD 5 MG TAB PO SCH (17:15)
[2025-06-24 17:38] LABS: ANTI-Xa, UFH(UnfractionatedHep 0.18 IU/ml (0.3-0.7)
[2025-06-24] MEDS: HEPARIN SOD (PORCINE) 1000 UNIT/ML IV ONE (18:14)
[2025-06-25] MEDS: INSULIN ASPART PER UNIT CHARGE SC SCH (00:17)
[2025-06-25 01:04] LABS: ANTI-Xa, UFH(UnfractionatedHep 0.37 IU/ml (0.3-0.7)
--- NOTE | 2025-06-25 06:40 | Electrocardiogram Report ---
Test Reason : Blood Pressure : */* mmHG Vent. Rate : 100 BPM Atrial Rate : * BPM P-R Int : * ms QRS Dur : 92 ms QT Int : 384 ms P-R-T Axes : * 6 60 degrees QTcB Int : 495 ms Poor data quality, interpretation may be adversely affected Sinus rhythm with Premature atrial complexes Nonspecific ST abnormality Prolonged QT Abnormal ECG When compared with ECG of 12-Dec-2024 05:34, ST no longer depressed in Inferior leads T wave inversion no longer evident in Inferolateral leads Confirmed by Omar Meyers ([id number]) on 06/25/2025 6:40:37 AM Referred By: Confirmed By: Omar Meyers
[2025-06-25 07:24] VITALS: RESP 18; TEMP 100
[2025-06-25 07:24] LABS: Hematocrit (blood only) 31.2 % (37.0-47.0); Hemoglobin 10.6 g/dL (12.0-16.0); Mean Corpuscular Hemoglobin 30.1 pg (25.0-34.0); Mean Corpuscular Volume 88.6 fL (80.0-100.0); Platelet Count 136 K/uL (130-400); RDW Standard Deviation 45.3 fL (36.4-46.3); Red Blood Count 3.52 M/uL (4.20-5.40); White Blood Count 7.42 K/ul (4.8-10.8)
[2025-06-25 07:47] LABS: ANTI-Xa, UFH(UnfractionatedHep 0.34 IU/ml (0.3-0.7)
[2025-06-25 07:50] LABS: INR 1.3 (0.9-1.1); Prothrombin Time 13.7 Seconds (9.0-12.0)
[2025-06-25 07:52] LABS: Anion Gap 8.0 (3-11); Blood Urea Nitrogen 26.0 mg/dl (6-23); Calcium 8.7 mg/dl (8.6-10.3); Carbon Dioxide 27.0 mmol/L (21-32); Chloride 104.0 mmol/L (98-107); Creatinine Clr Calc Pharmacy 45.8 ml/min; Glucose 111.0 mg/dl (70-99(Fasting)); Potassium 3.9 mmol/L (3.5-5.1); Sodium 139.0 mmol/L (136-145)
[2025-06-25] MEDS: LANTUS PER UNIT CHARGE SC SCH (09:07)
[2025-06-25] MEDS: METOPROLOL SUCC 25MG EXT REL TAB PO SCH (09:08)
[2025-06-25] MEDS: LOVENOX TEACHING KIT ONE (09:08)
[2025-06-25 11:09] VITALS: BP 121/57; PULSE 99; O2SAT 96
--- NOTE | 2025-06-25 11:55 | Discharge Summary ---
Date of Service June 25, 2025 Admission HPI Per Admitting Provider Ms. Mobley is a 75 year old female that presented to the ED with complaints of RLQ abdominal and vomiting x 4 days. CTAP reveals mild-mod R sided hydroureteronephrosis 2/2 obtstucting 6 mm stone R ureter. Urine suggestive of UTI and creatinine elevated in setting of hydronephrosis. Uncontrolled diabetes with serum glucose of 506. She uses an insulin pump at home. PMH includes: COPD, HFpEF, H/O DVT (x2 RLE in on Coumadin), H/O Breast cancer Leukocytosis 12.97, serum creatinine 1.83, Urine suggesting UTI; 1+LE, WBC > 50, Blood > 2, trace ketones. Subtherapeutic INR 1.5; reportedly she has not taken her Coumadin yesterday due to feeling unwell. Most recent ECHO: 09/02/2024: G1DDX, moderate LVH, mild MR. CTAP reveals: * [id number] right-sided hydroureteronephrosis secondary to an obstructing 6 cm calculus of the right ureter at the level of L4. * Air within the right renal collecting system and urinary bladder lumen may be secondary to instrumentation versus gas forming organism. Correlate with urinalysis. * Cirrhotic liver with abdominal varicosities compatible with portal HTN Pt appears unwell on examination. AAOx4, c/o abdominal pain and tenderness. Reports that Morphine did relieve pain. Pt denies GIL, SOB, chest pain, while c/o abd pain, no radiation to back, dysuria, no recent falls or trauma. Uses a walker for ambulation assistance. Pt will be admitted for further evalaution and management of her ureteral stone with continued IV abx, NPO for now, strain urine, Morphine PRN for pain control, formal urology consult to follow; if stone does not pass; may consider OR tomorrow 06/13. Heparin drip given H/O DVT's and subtherapeutic INR. ACHS SSI FSBS for uncontrolled diabetes; may not need insulin gtt given NPO. Better overall control with A1C (most recent 14.9), CDE and Glycemic pharmacy. Admission Exam Per Admitting Provider Neuro: AAOx4, PERRLA, no aphagia, memory changes, CNII-XII grossly intact HEENT: head normocephalic, moist mucus membranes CV: S1/S2, (-) M/G/R, (-) edema, cap refill < 3 seconds Resp: Lungs CTA in all burger. On RA GI: Abdomen large, tender, non-distended, Ax4 bowel sounds, (-) CVA tenderness Musculoskeletal: 5/5 B/L UE strength, 5/5 B/L LE strength. No gait disturbance Skin: (-) rashes , (-) erythema. Psych: euthymic mood Principal Diagnosis Sepsis Complicated Urinary tract infection Ureteral stone Acute kidney injury Poorly controlled diabetes Discharge Exam Constitutional + well hydrated; no acute distress Eyes PERRL, conjunctivae normal, anicteric sclerae ENMT external ear and nose normal, oropharynx normal Respiratory normal respiratory effort, lungs clear to auscultation Cardiovascular Rate/Rhythm: regular rate and regular rhythm Heart Sounds: + murmur Gastrointestinal (Abdomen) normal bowel sounds, soft, nontender, no hepatosplenomegaly Musculoskeletal No pedal edema Neurologic PERRL, EOMI, accommodation nl, no face palsy, no dysarthria Psychiatric A+Ox3, euthymic affect Discharge Data Allergies Allergy/AdvReac Type Severity Reaction Status Date / Time alendronate sodium Allergy Severe DIFFICULTY Verified 06/23/25 09:50 BREATHING/BURNING SENSATION esomeprazole Allergy Intermediate Hives Verified 06/23/25 09:50 Consultations 06/22/25 18:29 ED Decision to Admit Stat 06/22/25 20:37 Consult Urology Routine Procedures Performed Operation Date: 06/23/25 07:50 Actual Procedures p Cystoscopy, Right Stent Placement(Right) - Juice Woods MD Ordered Studies 06/22/25 14:56 CT abd pelvis wo con Stat 06/23/25 [place] KUB Routine Hospital Course (1) Ureteral stone: (2) CHF (congestive heart failure): (3) Insulin dependent type 2 diabetes mellitus: (4) Depression: (5) Morbid obesity: (6) HX: breast cancer: Plan 75 y/o F with 6mm ureteral stone with hydronephrosis presents with 4 days of vomiting and abdominal pain. Sepsis Complicated urinary tract infection Obstructive uropathy -CT ABD:[id number] right-sided hydroureteronephrosis secondary to an obstructing 6 cm calculus of the right ureter at the level of L4. Air within the right renal collecting system and urinary bladder lumen may be secondary to instrumentation versus gas forming organism. Correlate with urinalysis. -S/P cystoscopy, stone manipulation, right ureteral stent placement by Dr. Woods on 06/23/2025 - Urine culture grew E coli Continue IV Ceftriaxone and follow up sensitivities Was initially on IV ceftriaxone, now changed to PO cefdinir to complete treatment Patient needs to follow up with Urology outpatinet Acute kidney injury Secondary to above Cr was 1.83 on admission. Down to 1.21 today Uncontrolled IDDM2: Last A1c: 14.9 from 06/01/25 Uses an insulin pump at home Provided extensive education Has appt with [facility] A-fib RVR H/O DVT: H/O PE: Subtherapeutic INR: Metoprolol succinate increased to 25mg daily INR is subtherapeutic and 1.3 today Has been on heparin-warfarin bridge Discharged on lovenox-warfarin bridge. Provided lovenox kit and education provided to patient/ by Provider and RN Needs to follow up with [facility] warfarin clinic within next 3 days for INR check and management Has appt with [facility] HFpEF: Most recent ECHO: 09/02/2024: G1DDX, moderate LVH, mild MR H/O Breast CA: s/p partial mastectomy 2020 COPD Continue home inhalers Total Time Total Time Spent Total Time Spent (In Minutes): 45 Total Time Includes: Examination of the Patient, Discharge Planning, Medication Reconciliation and Other Discharge Plan Discharge Items Patient Disposition: Home - Self-Care Reason For Visit: URETERAL STONE/ ELEVATED GLUCOSE Discharge Diagnosis: Sepsis Complicated Urinary tract infection Ureteral stone Acute kidney injury Poorly controlled diabetes Condition on Discharge: Fair Activity: Resume your previous activity Non-emergency contact: Primary Care Provider and Urologist Call non-emergency contact if: you have any medication questions and your symptoms worsen Follow-up/Referrals: Silvano Calloway DO [Physician] - Natalia Heller PA-C [Primary Care Provider] - (Date & Time 06/30/2025 1:20 PM Provider: Natalia Heller PA-C [facility] ) Diet: Carb Consistent or DM2 Addtl Attending Provider Instructions: Mrs Mobley You were hospitalized and managed for the above listed diagnoses. You had a procedure with stent placement for the kidney stone. Please ensure follow up with Urology for continued managment. You are being discharged on antibiotics to complete treatment. Your metoprolol succinate was increased to 25mg once a day Your INR is low. You are being discharged on lovenox-warfarin bridge as discussed. Please ensure follow up with [facility] Warfarin clinic to recheck your INR with 2-3 days. Please continue to follow up with [facility] Diabetes clinic as we discussed. Ensure follow up with your Primary Doctor. It was a pleasure taking care of you. 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 Step #1: Enter blood sugar only. *click on blood drop icon --> enter blood sugar *click on insulin vial icon --> select Bolus --> select Bolus Wizard --> enter 0g carb --> select Next --> select Deliver Bolus) Step#2: Enter insulin for meal coverage. *click on insulin vial icon --> select Bolus --> select Manual Bolus --> enter amount of insulin listed below --> select Deliver Bolus) Breakfast: 25 units Lunch: 25 units + 20 units Supper: 25 units + 15 units Snacks: 15 units Because of your high insulin needs and ongoing high blood sugar levels, you would benefit from transition to a more concentrated insulin (such as Humalog U- 200 or Humulin-R U-500) in your pump to prolong pod changes and prevent need to double bolus. [employer] also has a new sensor that would be helpful to connect your blood sugar levels to your pump for more automated insulin delivery. Please discuss with your provider. Otherwise, you may want to consider transitioning back to injections using Humulin-R U500 given 2x/day with breakfast and supper meals versus Toujeo Max tiven 1x/day + Aspart/Novolog given immeditaely before each meal. Please discuss with your provider. Pending Studies at Discharge: No Stand-Alone Forms: [facility], Smoking Cessation Medications and DC Order Prescriptions: New enoxaparin [Lovenox] 100 mg/mL syringe 100 mg subcut Q12H 4 Days Qty: 8 0RF cefdinir 300 mg capsule 300 mg PO BID 7 Days Qty: 14 0RF Continued warfarin 5 mg tablet 5 mg PO QPM cyanocobalamin (vitamin B-12) 1,000 mcg Tablet, Sublingual 1,000 mcg SUBLINGUAL QAM multivitamin [Daily-Moiz] Tablet 1 tab PO QAM Qty: 30 0RF isosorbide mononitrate 60 mg tablet extended release 24 hr 60 mg PO QAM Qty: 30 0RF furosemide 20 mg Tablet 20 mg PO QAM Qty: 30 0RF fluticasone propionate [Flonase Allergy Relief] 50 mcg/actuation [place],Suspension 2 spray INTRANASAL QAM Qty: 1 0RF cholecalciferol (vitamin D3) 25 mcg (1,000 unit) Capsule 1,000 unit PO QAM Qty: 30 0RF rosuvastatin 20 mg tablet 20 mg PO QAM Qty: 30 0RF ascorbic acid (vitamin C) [Vitamin C] 1,000 mg Tablet 1,000 mg PO QAM metformin 1,000 mg tablet 1,000 mg PO BID Rx Instructions: take with food ferrous sulfate 325 mg (65 mg iron) Tablet 325 mg PO QAM insulin aspart U-100 [Novolog U-100 Insulin aspart] 100 unit/mL solution See Rx Instructions .ROUTE .COMPLEX Rx Instructions: insulin pump @ 270 units daily potassium chloride 10 mEq capsule, extended release 10 meq PO QAM quetiapine 25 mg tablet 25 mg PO HS montelukast 10 mg tablet 10 mg PO HS nitroglycerin 0.3 mg tablet, sublingual 0.3 mg sublingual .EVERY 5 MINUTES MDD up to 3 doses PRN (Reason: Chest Pain) famotidine 40 mg tablet 40 mg PO QAM albuterol sulfate 0.63 mg/3 mL solution for nebulization 0.63 mg continuous nebulization Q6 PRN (Reason: Wheezing) albuterol sulfate [Ventolin HFA] 90 mcg/actuation HFA aerosol inhaler 2 puff INHALATION Q6 PRN (Reason: Shortness Of Breath) Trelegy Ellipta 100-62.5-25 mcg blister with device 1 inh INHALATION QAM lorazepam 0.5 mg Tablet 0.5 mg PO Q6 PRN (Reason: Anxiety) Changed metoprolol succinate 25 mg Tablet Extended Release 24 Hr 25 mg PO QAM Qty: 30 0RF Discharge Orders: Discharge Order (Routine); Ordered 06/25/25 Ordered By: Nereyda Hermosillo Admission Data Admit Date/Time: 06/22/25 18:51 Attending Provider: Nereyda Hermosillo I. Admit Provider: Kelvin Huddleston Primary Care Provider: Natalia Heller Other Providers: Silvano Calloway; Kelvin Huddleston; Daryl Thomas; [place] Other Interventions: Discharge Summary Assessment (RN) Last Done: 06/25/25 11:57
== END 2025-06-25 14:19 | disposition home or self-care (01) | DRG 854 ==
LOC: ED 12:07 → 2N 18:51 → SUATTDRO 18:51 → 2N 20:52

== ENCOUNTER 2025-07-28 12:16 | Inpatient (IN) ==
--- NOTE | 2025-07-28 12:29 | Emergency Department Note ---
Impression & Plan Hyperosmolar hyperglycemic state (HHS), Acute respiratory distress ED Provider Note Name: LOUIS BENAVIDES Age: 75 Sex: Female Arrives Via: Ambulance Informant: Patient (poor historian due to respiratory issues), , EMS ED Provider: Can Lyons MD Chief Complaint: Shortness of breath Impression: As per impression above Medical Decision Makin-year-old brittle diabetic arrives for evaluation of severe respiratory issues in the setting of significant hyperglycemia. Reportedly patient's insulin pump and glucometer have been working for the last few days. EMS was called after worsening breathing difficulty. On arrival EMS placed patient on BiPAP due to severe respiratory distress though was not hypoxic. And route received small amount of IV fluids. On arrival patient does appear quite ill. She is however tolerating BiPAP and seems to be comfortable on it thus we will leave her on this for the moment. Laboratory workup initially reveals a significantly elevated blood sugar with eventual lab resulting in 900. She was initially started on 1 L of fluids but as labs came back another liter and a half was added on. Her urinalysis is concerning for UTI this IV Rocephin was given based on previous E. coli cultures. I did obtain lactate/blood cultures prior to this. Technically patient has severe sepsis though is not in septic shock at this time. Resuscitation was based on ideal body weight given the patient's BMI greater than 30. Recurrent evaluations reveal improvement in patient's respiratory status. My suspicion is patient is anterior to HHS secondary to nonfunctional insulin pump in the setting of an acute UTI. Hospitalist and critical care made aware and plan for admission at this time. Triage/Nursing Notes reviewed by Me External Chart Review by me: Discharge summary from 06/25/2025 reviewed by me for past medical history. Differential:Infection, dehydration, metabolic abnormality, hypo/hyperglycemia, electrolyte disturbance, anemia, hypoxia, cardiac sources, intracerebral event, toxicologic, neurologic, as well as other pathologies. Vital Signs: reviewed and remarkable for tachy Interventions: nss bolus 2.5 L IV, rocephin 2gm IV, bipap, insulin gtt Labs:ED labs Reviewed by me and remarkable for hyperglycemia amongst others Imaging:X ray results are stated below per my interpretation: Chest: 1 view: No infiltrate, no effusion, normal cardiac border. EKG:As per my interpretation. Indication shortness of breath. Sinus tach 103 bpm a QTc of 524. There is no ectopy no ischemia. When compared to EKG of June 22, 2025 she is not having PACs. Cardiac/Tele Monitoring: Cardiac Monitoring: An Order was placed for continuous cardiac monitoring. The monitor shows a rate of 90 with a normal sinus rhythm. Consults:Discussed with Dr. Glynn of critical care medicine as well as hospital service for further management. Plan: Disposition:Hospitalization. Condition: Critical History of Present Illness: 75-year-old female arrives for evaluation of shortness of breath. Patient reportedly has been dealing with blood sugar issues since her glucometer and insulin pump broke over the last few days. Worsening shortness of breath associated with this. Patient severely weak and tired. 911 was called this morning. EMS arrived to note patient had a respiratory rate in the 50s. Oxygen saturations remained in the mid 90s however for patient comfort she was switched to BiPAP with good response. Patient's blood sugar was greater than 600 for EMS. She received 500 mL normal saline bolus and route. Patient notes she is feeling a bit better though review of system is difficult due to her BiPAP use at the moment. Past Medical History: see below Home Medications:See Below Allergies: Alendronate, esomeprazole Vitals:Blood Pressure: 117/75, Pulse 100, RR 23, T 36.6C, O2 99% on RA Physical Exam: GENERAL: Patient is unwell appearing and in moderate distress. Dry appearing RESPIRATORY: Moderate dyspnea though breathing reportedly improving while on BiPAP. Clear lung sounds bilaterally. CARDIOVASCULAR: Mildly tachycardic.No murmur appreciated. GASTROINTESTINAL: Abdomen soft, non-tender, no peritonitis. EXTREMITIES: Normal motion all extremities, no cyanosis, no edema. NEUROLOGIC: A bit somnolent though noding to questions. No focal neurologic deficits appreciated SKIN: No rash, no jaundice, no diaphoresis. PSYCH: Appropriate GCS: 15 ED Course: Times/Reassessments: Critical Care: I have personally spent 40 minutes of critical care time in the direct management of this patient. Acute HHS requiring resuscitation and respiratory support with BiPAP. This was a life/limb threatening event. This 40 minutes is in excess of all separately billable procedures. Can Lyons MD Past Med/Surg History Problem List (Updated 07/29/25 @ 06:55 by Can Lyons MD) Acute respiratory distress (Acute) Hyperosmolar hyperglycemic state (HHS) (Acute) Hyperglycemia (Acute) SOL (acute kidney injury) (Acute) Urinary tract infection (Acute) Calculus of right ureter (Acute) Vomiting (Acute) HX: breast cancer Ureteral stone COPD (chronic obstructive pulmonary disease) (Acute) CHF (congestive heart failure) (Acute) GARCIA (dyspnea on exertion) (Acute) Nonspecific ST-T wave electrocardiographic changes Pulmonary hypertension Morbid obesity E coli bacteremia Anxiety Cirrhosis SOB (shortness of breath) Cardiac arrest Prolonged QT interval Torsades de pointes GERD (gastroesophageal reflux disease) Diabetic polyneuropathy Hyperlipidemia Insulin dependent type 2 diabetes mellitus Depression Elevated troponin Acute on chronic diastolic heart failure COPD exacerbation ASCVD (arteriosclerotic cardiovascular disease) HTN (hypertension) Ankle fracture, bimalleolar, closed Anemia Chronic anticoagulation (Chronic) Brittany-prosthetic fracture around prosthetic knee Osteoporosis Coronary artery disease Microvascular angina Medical History COPD (chronic obstructive pulmonary disease) History of pulmonary embolism Chronic atrial fibrillation Benign neoplasm of colon Osteoarthritis History of DVT (deep vein thrombosis) "RLE x 2 in 1980s" 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) "Abnormal left breast mammogram 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 Estrogen receptor positive and progesterone receptor positive Status post lumpectomy with sentinel lymph node biopsy stage [id number] 04/07/2015 Status post completion of radiation therapy 07/21/2015 received 6640 cGy" On 07/25/15 17:54 Jayleen Bates wrote "Abnormal left breast mammogram 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 Estrogen receptor positive and progesterone receptor positive Status post lumpectomy with sentinel lymph node biopsy stage [id number] 04/07/2015 Status post completion of radiation therapy 07/21/2015 received 6640 cGy" On 07/25/15 17:49 Jayleen Bates wrote "Abnormal left breast mammogram 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 Estrogen receptor positive and progesterone receptor positive Status post lumpectomy with sentinel lymph node biopsy stage [id number] 04/07/2015" Surgical History H/O partial mastectomy "left breast 04/2015 with lymph node biopsy" H/O arthroscopic knee surgery H/O colonoscopy History of carpal tunnel surgery S/P cervical spinal fusion S/P dilation and curettage H/O vein stripping Family History Other Breast cancer Diabetes Heart disease Social History Smoking Status: Former smoker Tobacco Type: Cigarettes Second Hand Exposure: No; Do You Dip or Chew Tobacco: No; Hx Alcohol Use: No Hx Substance Use: No Preferred Language: Tamazight Communication Ability: Effective Can Conveyor Feeder Required: No Beliefs That Will Affect Care: None Current Living Situation: Spouse Current Living Situation Comment: lives at home with and step-son Other Information That Helps Us Care for You: No Feels Safe at Home: Yes Safety Concerns: Feels Safe At This Time Assistive Devices: CPAP, Denture - Upper, Glasses, Oxygen - at Night, Walker and Wheelchair Assistive Devices Comment: electric wheelchair Allergies Allergies Allergy/AdvReac Type Severity Reaction Status Date / Time alendronate sodium Allergy Severe DIFFICULTY Verified 06/23/25 09:50 BREATHING/BURNING SENSATION esomeprazole Allergy Intermediate Hives Verified 06/23/25 09:50 Home Meds Home Medications Medication Instructions Recorded Confirmed warfarin 5 mg tablet 5 mg PO QPM 01/12/20 06/24/25 cyanocobalamin (vitamin B-12) 1,000 mcg sublingual QAM 09/21/22 06/22/25 1,000 mcg sublingual tablet ascorbic acid (vitamin C) 1,000 mg 1,000 mg PO QAM 12/10/24 06/22/25 tablet (Vitamin C) ferrous sulfate 325 mg (65 mg 325 mg PO QAM 12/10/24 06/22/25 iron) tablet insulin aspart U-100 100 unit/mL See Rx Instructions .Route .COMPLEX 12/10/24 06/22/25 subcutaneous solution (Novolog U-100 Insulin aspart) metformin 1,000 mg tablet 1,000 mg PO BID 12/10/24 06/22/25 albuterol sulfate 0.63 mg/3 mL 0.63 mg continuous nebulization Q6 06/22/25 06/22/25 solution for nebulization PRN Wheezing albuterol sulfate 90 mcg/actuation 2 puff inhalation Q6 PRN Shortness 06/22/25 06/22/25 aerosol inhaler (Ventolin HFA) Of Breath famotidine 40 mg tablet 40 mg PO QAM 06/22/25 06/22/25 fluticasone fur. 100 mcg-umeclid 1 inh inhalation QAM 06/22/25 06/22/25 62.5 mcg-vilant 25 mcg inhalat.powder (Trelegy Ellipta) lorazepam 0.5 mg tablet 0.5 mg PO Q6 PRN Anxiety 06/22/25 06/22/25 montelukast 10 mg tablet 10 mg PO HS 06/22/25 06/22/25 nitroglycerin 0.3 mg sublingual 0.3 mg sublingual .EVERY 5 MINUTES 06/22/25 06/22/25 tablet PRN Chest Pain potassium chloride 10 mEq 10 meq PO QAM 06/22/25 06/22/25 capsule,extended release quetiapine 25 mg tablet 25 mg PO HS 06/22/25 06/22/25 furosemide 20 mg tablet 0 mg PO QAM 07/28/25 Previous Rx's Medication Instructions Recorded cholecalciferol (vitamin D3) 25 1,000 unit PO QAM #30 caps 10/29/24 mcg (1,000 unit) capsule fluticasone propionate 50 2 spray intranasal QAM #1 mL 10/29/24 mcg/actuation nasal spray,suspension (Flonase Allergy Relief) isosorbide mononitrate 60 mg 60 mg PO QAM #30 tabs 10/29/24 tablet,extended release 24 hr multivitamin (Daily-Moiz tablet) 1 tab PO QAM #30 tabs 10/29/24 rosuvastatin 20 mg tablet 20 mg PO QAM #30 tabs 10/29/24 metoprolol succinate 25 mg 25 mg PO QAM #30 tabs 06/25/25 tablet,extended release 24 hr Results & Data (ED) Vital Signs Vital Signs - 24 hr 07/28/25 12:09 07/28/25 12:20 07/28/25 12:22 Temperature 36.6 C Temperature Source Oral Pulse Rate 105 H 104 H Pulse Rate [Apical] Pulse Rate from SpO2 Sensor Pulse Rhythm Regular Respiratory Rate 31 H 32 H Respiratory Effort / Characteristics Spontaneous Labored Pursed Lip Short of Breath Respiratory Depth Retractive Respiratory Pattern Tachypnea Blood Pressure 110/83 Blood Pressure [Right Arm] Blood Pressure Mean 92 Blood Pressure Mean [Right Arm] Pulse Oximetry 100 100 Oxygen Delivery Method BiPAP BiPAP Fraction of Inspired Oxygen 30 SaO2/FiO2 Ratio Sepsis Recent Fever Within 48 Hours No Sepsis New/Unexplained Change in Mental Status No Sepsis Action Taken by Nursing Physician Notified 07/28/25 12:22 07/28/25 12:22 07/28/25 12:30 Temperature 36.6 C Temperature Source Oral Pulse Rate Pulse Rate [Apical] 117 H Pulse Rate from SpO2 Sensor Pulse Rhythm Respiratory Rate 29 H Respiratory Effort / Characteristics Respiratory Depth Shallow Respiratory Pattern Blood Pressure 110/83 Blood Pressure [Right Arm] 110/83 Blood Pressure Mean 95 Blood Pressure Mean [Right Arm] 92 Pulse Oximetry 100 100 Oxygen Delivery Method BiPAP BiPAP BiPAP Fraction of Inspired Oxygen SaO2/FiO2 Ratio Sepsis Recent Fever Within 48 Hours Sepsis New/Unexplained Change in Mental Status Sepsis Action Taken by Nursing 07/28/25 12:36 07/28/25 12:42 07/28/25 12:42 Temperature Temperature Source Pulse Rate 117 H 104 H 103 H Pulse Rate [Apical] Pulse Rate from SpO2 Sensor 118 H 102 H Pulse Rhythm Respiratory Rate 23 28 H Respiratory Effort / Characteristics Respiratory Depth Respiratory Pattern Blood Pressure Blood Pressure [Right Arm] Blood Pressure Mean Blood Pressure Mean [Right Arm] Pulse Oximetry 99 100 Oxygen Delivery Method Fraction of Inspired Oxygen SaO2/FiO2 Ratio Sepsis Recent Fever Within 48 Hours Sepsis New/Unexplained Change in Mental Status Sepsis Action Taken by Nursing 07/28/25 12:45 07/28/25 12:45 07/28/25 12:45 Temperature Temperature Source Pulse Rate Pulse Rate [Apical] Pulse Rate from SpO2 Sensor Pulse Rhythm Respiratory Rate Respiratory Effort / Characteristics Respiratory Depth Respiratory Pattern Blood Pressure 117/75 117/75 117/75 Blood Pressure [Right Arm] Blood Pressure Mean 84 84 84 Blood Pressure Mean [Right Arm] Pulse Oximetry Oxygen Delivery Method Fraction of Inspired Oxygen SaO2/FiO2 Ratio Sepsis Recent Fever Within 48 Hours Sepsis New/Unexplained Change in Mental Status Sepsis Action Taken by Nursing 07/28/25 12:45 07/28/25 12:45 07/28/25 12:45 Temperature Temperature Source Pulse Rate 101 H Pulse Rate [Apical] Pulse Rate from SpO2 Sensor 102 H Pulse Rhythm Respiratory Rate 25 H Respiratory Effort / Characteristics Respiratory Depth Respiratory Pattern Blood Pressure 117/75 117/75 Blood Pressure [Right Arm] Blood Pressure Mean 84 84 Blood Pressure Mean [Right Arm] Pulse Oximetry 99 Oxygen Delivery Method Fraction of Inspired Oxygen SaO2/FiO2 Ratio Sepsis Recent Fever Within 48 Hours Sepsis New/Unexplained Change in Mental Status Sepsis Action Taken by Nursing 07/28/25 12:51 07/28/25 13:50 07/28/25 14:31 Temperature Temperature Source Pulse Rate 100 H 98 H Pulse Rate [Apical] 103 H Pulse Rate from SpO2 Sensor 100 H Pulse Rhythm Respiratory Rate 23 29 H 24 Respiratory Effort / Characteristics Spontaneous Short of Breath Respiratory Depth Normal Respiratory Pattern Tachypnea Regular Blood Pressure Blood Pressure [Right Arm] 141/76 H Blood Pressure Mean Blood Pressure Mean [Right Arm] 97 Pulse Oximetry 99 100 100 Oxygen Delivery Method CPAP Fraction of Inspired Oxygen 30 30 SaO2/FiO2 Ratio 333 Sepsis Recent Fever Within 48 Hours Sepsis New/Unexplained Change in Mental Status Sepsis Action Taken by Nursing 07/28/25 15:00 07/28/25 16:08 07/28/25 16:12 Temperature Temperature Source Pulse Rate 107 H 95 H Pulse Rate [Apical] Pulse Rate from SpO2 Sensor 107 H 95 H Pulse Rhythm Respiratory Rate 18 27 H Respiratory Effort / Characteristics Respiratory Depth Respiratory Pattern Blood Pressure 144/73 H 144/73 H Blood Pressure [Right Arm] Blood Pressure Mean 101 96 Blood Pressure Mean [Right Arm] Pulse Oximetry 98 99 Oxygen Delivery Method Fraction of Inspired Oxygen SaO2/FiO2 Ratio Sepsis Recent Fever Within 48 Hours Sepsis New/Unexplained Change in Mental Status Sepsis Action Taken by Nursing 07/28/25 16:30 07/28/25 16:55 07/28/25 17:00 Temperature Temperature Source Pulse Rate 106 H 97 H 97 H Pulse Rate [Apical] Pulse Rate from SpO2 Sensor 91 H 90 Pulse Rhythm Respiratory Rate 22 23 Respiratory Effort / Characteristics Respiratory Depth Respiratory Pattern Blood Pressure 135/73 127/59 L Blood Pressure [Right Arm] Blood Pressure Mean 93 81 Blood Pressure Mean [Right Arm] Pulse Oximetry 97 98 Oxygen Delivery Method Fraction of Inspired Oxygen SaO2/FiO2 Ratio Sepsis Recent Fever Within 48 Hours Sepsis New/Unexplained Change in Mental Status Sepsis Action Taken by Nursing Laboratory Data 07/28/25 12:31 07/29/25 02:14 Lab Results 07/28/25 07/28/25 07/28/25 Range/Units 12:18 12:31 12:38 WBC 8.61 (4.8-10.8) K/ul RBC 4.02 L (4.20-5.40) M/uL Hgb 12.5 (12.0-16.0) g/dL POC Hgb 12.6 (12.0-16.0) g/dl Hct 34.6 L (37.0-47.0) % POC Hct 37 (37-47) % MCV 86.1 (80.0-100.0) fL MCH 31.1 (25.0-34.0) pg MCHC 36.1 H (32.0-36.0) g/dL RDW Std Deviation 42.7 (36.4-46.3) fL RDW Coeff of [place]rin 13.6 (11.5-14.5) % Plt Count 182 (130-400) K/uL MPV 11.6 (9.4-12.4) fL Immature Gran % (Auto) 0.2 % Neut % (Auto) 85.9 % Lymph % (Auto) 9.6 % [place] % (Auto) 3.6 % Eos % (Auto) 0.1 % Baso % (Auto) 0.6 % Neut # (Auto) 7.39 H (1.40-6.50) K/uL Lymph # (Auto) 0.83 L (1.20-3.40) K/uL [place] # (Auto) 0.31 (0.11-0.59) K/uL Eos # (Auto) 0.01 (0.00-0.50) K/uL Baso # (Auto) 0.05 (0.00-0.20) K/uL Immature Gran # (Auto) 0.02 (0.01-0.20) K/uL VBG pH 7.47 H (7.36-7.41) VBG pCO2 28 L (38-50) mmHg VBG pO2 37 mmHg VBG HCO3 20 mmol/L VBG O2 Saturation 71.7 % VBG Base Excess -2.0 mEq/L POC Sodium 132 L (135-144) mmol/L Sodium 131 L (136-145) mmol/L POC Potassium 3.8 (3.3-5.0) mmol/L Potassium 3.8 (3.5-5.1) mmol/L POC Chloride 95 L (101-112) mmol/L Chloride 92 L (98-107) mmol/L Carbon Dioxide 19 L (21-32) mmol/L POC Total CO2 18 L (24-31) mmol/L Anion Gap 20 H (3-11) POC Anion Gap 23.0 (16-25) mmol/L POC BUN 19 H (7-18) mg/dl BUN 20 (6-23) mg/dl Creatinine 1.21 H (0.6-1.2) mg/dl POC Creatinine 1.0 (0.6-1.3) mg/dl Est Cr Clr Drug Dosing 44.3 ml/min eGFR 46.45 BUN/Creatinine Ratio 16.5 (10-20) Glucose 908 H* (70-99(Fasting)) mg/dl POC Glucose (70-99) mg/dl POC Glucose (other) > 700 H* (70-99) mg/dl Lactate 5.8 H* (0.4-2.0) mmol/L Calcium 9.7 (8.6-10.3) mg/dl POC Ioniz Calcium [place] 1.11 L (1.12-1.32) mmol/l Magnesium 2.2 (1.7-2.4) mg/dl Total Bilirubin 0.8 (0.2-1.0) mg/dl Direct Bilirubin 0.2 (0-0.2) mg/dl AST 45 H (13-39) U/L ALT 27 (7-52) U/L Alkaline Phosphatase 115 H (34-104) U/L Troponin I High Sens 31.2 H (0-14) pg/ml Total Protein 8.0 (6.0-8.3) gm/dl Albumin 3.9 (3.4-5.0) gm/dl Lipase 43 (11-82) U/L Vitamin B12 1026 H (180-914) pg/ml Procalcitonin 0.21 (0-0.5) ng/ml TSH 1.683 (0.300-4.500) uIu/ml Urine Color Urine Appearance (Clear) Urine pH (4.5-7.5) Ur Specific [place] (1.000-1.030) Urine Protein (Negative) Urine Glucose (UA) (Negative) Urine Ketones (Negative) Urine Blood (Negative) Urine Nitrite (Negative) Urine Bilirubin (Negative) Urine Urobilinogen (Negative) Ur Leukocyte Esterase (Negative) Urine WBC (Auto) (0-5) /hpf Urine RBC (Auto) (0-2) /hpf U Hyaline Cast (Auto) (0-2) /lpf U Epithel Cells (Auto) (0-2) /hpf Urine Bacteria (Auto) (None Seen) Urine Comment Adenovirus (PCR) (NotDetected) B. pertussis DNA (PCR) (NotDetected) B.parapertussis DNA PCR (NotDetected) C. pneumoniae DNA (PCR) (NotDetected) Coronavirus OC43 (PCR) (NotDetected) Coronavirus HKU1 (PCR) (NotDetected) Coronavirus 229E (PCR) (NotDetected) SARS-CoV-2 (PCR) NEGATIVE (Negative) Coronavirus NL63 (PCR) (NotDetected) Human Metapneumovir PCR (NotDetected) Influenza Type A (PCR) Negative (Neg) Influenza Type B (PCR) Negative (Neg) M. pneumoniae (PCR) (NotDetected) Parainfluenza 1 (PCR) (NotDetected) Parainfluenza 2 (PCR) (NotDetected) Parainfluenza 3 (PCR) (NotDetected) Parainfluenza 4 (PCR) (NotDetected) RSV (RT-PCR) Negative (Neg) RSV (PCR) (NotDetected) Entero/Rhino (PCR) (NotDetected) 07/28/25 07/28/25 07/28/25 Range/Units 13:10 14:38 14:50 WBC (4.8-10.8) K/ul RBC (4.20-5.40) M/uL Hgb (12.0-16.0) g/dL POC Hgb (12.0-16.0) g/dl Hct (37.0-47.0) % POC Hct (37-47) % MCV (80.0-100.0) fL MCH (25.0-34.0) pg MCHC (32.0-36.0) g/dL RDW Std Deviation (36.4-46.3) fL RDW Coeff of Katrin (11.5-14.5) % Plt Count (130-400) K/uL MPV (9.4-12.4) fL Immature Gran % (Auto) % Neut % (Auto) % Lymph % (Auto) % [place] % (Auto) % Eos % (Auto) % Baso % (Auto) % Neut # (Auto) (1.40-6.50) K/uL Lymph # (Auto) (1.20-3.40) K/uL [place] # (Auto) (0.11-0.59) K/uL Eos # (Auto) (0.00-0.50) K/uL Baso # (Auto) (0.00-0.20) K/uL Immature Gran # (Auto) (0.01-0.20) K/uL VBG pH (7.36-7.41) VBG pCO2 (38-50) mmHg VBG pO2 mmHg VBG HCO3 mmol/L VBG O2 Saturation % VBG Base Excess mEq/L POC Sodium (135-144) mmol/L Sodium (136-145) mmol/L POC Potassium (3.3-5.0) mmol/L Potassium (3.5-5.1) mmol/L POC Chloride (101-112) mmol/L Chloride (98-107) mmol/L Carbon Dioxide (21-32) mmol/L POC Total CO2 (24-31) mmol/L Anion Gap (3-11) POC Anion Gap (16-25) mmol/L POC BUN (7-18) mg/dl BUN (6-23) mg/dl Creatinine (0.6-1.2) mg/dl POC Creatinine (0.6-1.3) mg/dl Est Cr Clr Drug Dosing ml/min eGFR BUN/Creatinine Ratio (10-20) Glucose (70-99(Fasting)) mg/dl POC Glucose > 600 H* (70-99) mg/dl POC Glucose (other) (70-99) mg/dl Lactate (0.4-2.0) mmol/L Calcium (8.6-10.3) mg/dl POC Ioniz Calcium [place] (1.12-1.32) mmol/l Magnesium (1.7-2.4) mg/dl Total Bilirubin (0.2-1.0) mg/dl Direct Bilirubin (0-0.2) mg/dl AST (13-39) U/L ALT (7-52) U/L Alkaline Phosphatase (34-104) U/L Troponin I High Sens (0-14) pg/ml Total Protein (6.0-8.3) gm/dl Albumin (3.4-5.0) gm/dl Lipase (11-82) U/L Vitamin B12 (180-914) pg/ml Procalcitonin (0-0.5) ng/ml TSH (0.300-4.500) uIu/ml Urine Color Yellow Urine Appearance Clear (Clear) Urine pH 6.0 (4.5-7.5) Ur Specific [place] 1.025 (1.000-1.030) Urine Protein Trace H (Negative) Urine Glucose (UA) 3+ H (Negative) Urine Ketones 1+ H (Negative) Urine Blood 3+ H (Negative) Urine Nitrite Negative (Negative) Urine Bilirubin Negative (Negative) Urine Urobilinogen Negative (Negative) Ur Leukocyte Esterase 1+ H (Negative) Urine WBC (Auto) 21-50 H (0-5) /hpf Urine RBC (Auto) >20 H (0-2) /hpf U Hyaline Cast (Auto) 0-2 (0-2) /lpf U Epithel Cells (Auto) 3-5 H (0-2) /hpf Urine Bacteria (Auto) 4+ H (None Seen) Urine Comment Adenovirus (PCR) Not Detected (NotDetected) B. pertussis DNA (PCR) Not Detected (NotDetected) B.parapertussis DNA PCR Not Detected (NotDetected) C. pneumoniae DNA (PCR) Not Detected (NotDetected) Coronavirus OC43 (PCR) Not Detected (NotDetected) Coronavirus HKU1 (PCR) Not Detected (NotDetected) Coronavirus 229E (PCR) Not Detected (NotDetected) SARS-CoV-2 (PCR) Not Detected (Negative) Coronavirus NL63 (PCR) Not Detected (NotDetected) Human Metapneumovir PCR Not Detected (NotDetected) Influenza Type A (PCR) Not Detected (Neg) Influenza Type B (PCR) Not Detected (Neg) M. pneumoniae (PCR) Not Detected (NotDetected) Parainfluenza 1 (PCR) Not Detected (NotDetected) Parainfluenza 2 (PCR) Not Detected (NotDetected) Parainfluenza 3 (PCR) Not Detected (NotDetected) Parainfluenza 4 (PCR) Not Detected (NotDetected) RSV (RT-PCR) (Neg) RSV (PCR) Not Detected (NotDetected) Entero/Rhino (PCR) Not Detected (NotDetected) 07/28/25 07/28/25 07/28/25 Range/Units 15:15 15:56 16:58 WBC (4.8-10.8) K/ul RBC (4.20-5.40) M/uL Hgb (12.0-16.0) g/dL POC Hgb (12.0-16.0) g/dl Hct (37.0-47.0) % POC Hct (37-47) % MCV (80.0-100.0) fL MCH (25.0-34.0) pg MCHC (32.0-36.0) g/dL RDW Std Deviation (36.4-46.3) fL RDW Coeff of [place]rin (11.5-14.5) % Plt Count (130-400) K/uL MPV (9.4-12.4) fL Immature Gran % (Auto) % Neut % (Auto) % Lymph % (Auto) % [place] % (Auto) % Eos % (Auto) % Baso % (Auto) % Neut # (Auto) (1.40-6.50) K/uL Lymph # (Auto) (1.20-3.40) K/uL [place] # (Auto) (0.11-0.59) K/uL Eos # (Auto) (0.00-0.50) K/uL Baso # (Auto) (0.00-0.20) K/uL Immature Gran # (Auto) (0.01-0.20) K/uL VBG pH 7.37 (7.36-7.41) VBG pCO2 31 L (38-50) mmHg VBG pO2 69 mmHg VBG HCO3 18 mmol/L VBG O2 Saturation 95.5 % VBG Base Excess -6.3 mEq/L POC Sodium (135-144) mmol/L Sodium (136-145) mmol/L POC Potassium (3.3-5.0) mmol/L Potassium (3.5-5.1) mmol/L POC Chloride (101-112) mmol/L Chloride (98-107) mmol/L Carbon Dioxide (21-32) mmol/L POC Total CO2 (24-31) mmol/L Anion Gap (3-11) POC Anion Gap (16-25) mmol/L POC BUN (7-18) mg/dl BUN (6-23) mg/dl Creatinine (0.6-1.2) mg/dl POC Creatinine (0.6-1.3) mg/dl Est Cr Clr Drug Dosing ml/min eGFR BUN/Creatinine Ratio (10-20) Glucose (70-99(Fasting)) mg/dl POC Glucose 557 H* 566 H* (70-99) mg/dl POC Glucose (other) (70-99) mg/dl Lactate 3.6 H* (0.4-2.0) mmol/L Calcium (8.6-10.3) mg/dl POC Ioniz Calcium [place] (1.12-1.32) mmol/l Magnesium (1.7-2.4) mg/dl Total Bilirubin (0.2-1.0) mg/dl Direct Bilirubin (0-0.2) mg/dl AST (13-39) U/L ALT (7-52) U/L Alkaline Phosphatase (34-104) U/L Troponin I High Sens (0-14) pg/ml Total Protein (6.0-8.3) gm/dl Albumin (3.4-5.0) gm/dl Lipase (11-82) U/L Vitamin B12 (180-914) pg/ml Procalcitonin (0-0.5) ng/ml TSH (0.300-4.500) uIu/ml Urine Color Urine Appearance (Clear) Urine pH (4.5-7.5) Ur Specific [place] (1.000-1.030) Urine Protein (Negative) Urine Glucose (UA) (Negative) Urine Ketones (Negative) Urine Blood (Negative) Urine Nitrite (Negative) Urine Bilirubin (Negative) Urine Urobilinogen (Negative) Ur Leukocyte Esterase (Negative) Urine WBC (Auto) (0-5) /hpf Urine RBC (Auto) (0-2) /hpf U Hyaline Cast (Auto) (0-2) /lpf U Epithel Cells (Auto) (0-2) /hpf Urine Bacteria (Auto) (None Seen) Urine Comment Adenovirus (PCR) (NotDetected) B. pertussis DNA (PCR) (NotDetected) B.parapertussis DNA PCR (NotDetected) C. pneumoniae DNA (PCR) (NotDetected) Coronavirus OC43 (PCR) (NotDetected) Coronavirus HKU1 (PCR) (NotDetected) Coronavirus 229E (PCR) (NotDetected) SARS-CoV-2 (PCR) (Negative) Coronavirus NL63 (PCR) (NotDetected) Human Metapneumovir PCR (NotDetected) Influenza Type A (PCR) (Neg) Influenza Type B (PCR) (Neg) M. pneumoniae (PCR) (NotDetected) Parainfluenza 1 (PCR) (NotDetected) Parainfluenza 2 (PCR) (NotDetected) Parainfluenza 3 (PCR) (NotDetected) Parainfluenza 4 (PCR) (NotDetected) RSV (RT-PCR) (Neg) RSV (PCR) (NotDetected) Entero/Rhino (PCR) (NotDetected) Administered Medications Insulin Human Regular 250 (units/ Sodium Chloride) 250 mls @ 5 mls/hr IV .Q24H [facility]; Protocol Stop: 08/27/25 13:44 Last Titration: 07/29/25 06:20 Dose: 5 units/hr, 5 mls/hr Documented By: ROCCO Co-signed By: jono Titration: 07/29/25 06:02 Dose: 12.3 units/hr, 12.3 mls/hr Documented By: jono Co-signed By: ROCCO Titration: 07/29/25 03:19 Dose: 15.4 units/hr, 15.4 mls/hr Documented By: jono Co-signed By: ROCCO Titration: 07/29/25 01:20 Dose: 15.4 units/hr, 15.4 mls/hr Documented By: jono Co-signed By: TANNER Titration: 07/28/25 23:30 Dose: 15.4 units/hr, 15.4 mls/hr Documented By: ROCCO Co-signed By: jono Titration: 07/28/25 20:45 Dose: 0 units/hr, 0 mls/hr Documented By: ROCCO Co-signed By: jono Titration: 07/28/25 20:09 Dose: 15.4 units/hr, 15.4 mls/hr Documented By: jono Co-signed By: ROCCO Titration: 07/28/25 19:07 Dose: 15.4 units/hr, 15.4 mls/hr Documented By: IZZY Co-signed By: jono Titration: 07/28/25 17:03 Dose: 15.4 units/hr, 15.4 mls/hr Documented By: DANIE Co-signed By: asm Titration: 07/28/25 16:11 Dose: 11 units/hr, 11 mls/hr Documented By: ankita Co-signed By: DANIE Admin: 07/28/25 14:09 Dose: 9.2 units/hr, 9.2 mls/hr Documented By: darian Co-signed By: MATTHEW Potassium Chloride/Sodium Chloride (1/2 Nss + 20meq Kcl 1000ml) 20 meq in 1,000 mls @ 200 mls/hr IV .Q5H RAQUEL Stop: 07/31/25 18:59 Last Admin: 07/29/25 06:16 Dose: 200 mls/hr Documented By: Infusion: 07/29/25 05:20 Dose: Infused Documented By: Admin: 07/29/25 00:20 Dose: 200 mls/hr Documented By: jono Infusion: 07/29/25 00:20 Dose: Infused Documented By: jono Admin: 07/28/25 19:21 Dose: 200 mls/hr Documented By: ROCCO Insulin Aspart (Insulin Aspart Per Unit Charge) 0 units SC ACHS RAQUEL Stop: 08/27/25 16:29 Last Admin: 07/28/25 22:02 Dose: Not Given Documented By: jono Admin: 07/28/25 18:04 Dose: Not Given Documented By: IZZY Quetiapine Fumarate (Quetiapine Fumarate 25 Mg Tablet) 25 mg PO HS RAQUEL Stop: 08/27/25 20:59 Last Admin: 07/28/25 21:09 Dose: 25 mg Documented By: jono Warfarin Sodium (Warfarin Sod 5 Mg Tab) 5 mg PO QPM RAQUEL Stop: 08/27/25 20:59 Last Admin: 07/28/25 21:08 Dose: 5 mg Documented By: jono Discontinued Medications Sodium Chloride (Nss) 1,000 mls @ 999 mls/hr IV .Q1H1M ONE Stop: 07/28/25 13:43 Last Infusion: 07/28/25 13:44 Dose: Infused Documented By: darian Admin: 07/28/25 12:46 Dose: 999 mls/hr Documented By: darian Sodium Chloride (Nss) 1,000 mls @ 999 mls/hr IV .Q1H1M ONE Stop: 07/28/25 14:34 Last Infusion: 07/28/25 14:35 Dose: Infused Documented By: Admin: 07/28/25 13:43 Dose: 999 mls/hr Documented By: darian Sodium Chloride (Nss) 500 mls @ 999 mls/hr IV .Q31M ONE Stop: 07/28/25 14:13 Last Infusion: 07/28/25 14:33 Dose: Infused Documented By: Admin: 07/28/25 13:46 Dose: 999 mls/hr Documented By: darian Ceftriaxone Sodium (Rocephin) 2,000 mg in 50 mls @ 100 mls/hr IV NOW STA Stop: 07/28/25 14:17 Last Infusion: 07/28/25 14:33 Dose: Infused Documented By: Admin: 07/28/25 14:00 Dose: 100 mls/hr Documented By: darian Sodium Chloride (1/2 Nss) 1,000 mls @ 200 mls/hr IV .Q5H [facility]QUEL Stop: 07/31/25 14:29 Last Infusion: 07/28/25 19:47 Dose: Infused Documented By: jono Admin: 07/28/25 14:53 Dose: 200 mls/hr Documented By: RUBEN Insulin Glargine (Lantus Per Unit Charge) 50 units SC NOW ONE Stop: 07/29/25 06:01 Last Admin: 07/29/25 06:23 Dose: 50 units Documented By: jono Co-signed By: ROCCO Insulin Human Regular (Novolin-R Bolus From Bag) 9.2 units IV ONE ONE Stop: 07/28/25 14:01 Last Admin: 07/28/25 14:10 Dose: 9.2 units Documented By: darian Co-signed By: MATTHEW Insulin Pump (Dc Home Insulin Pump) 1 each N/A NOW STA Stop: 07/28/25 13:35 Last Admin: 07/28/25 14:34 Dose: 1 each Documented By: RUBEN Kim (Stat Iv Infusion Titration Per Protocol) 1 each N/A NOW STA Stop: 07/28/25 13:35 Last Admin: 07/28/25 14:35 Dose: 1 each Documented By: RUBEN Kim (Hhs Goal Range 250-350 Mg/Dl) 1 each N/A ONE ONE Stop: 07/28/25 13:35 Last Admin: 07/28/25 14:35 Dose: 1 each Documented By: RUBEN Kim (Pending D5 1/2ns+20meq Kcl Ivf) 1 each N/A Q2H RAQUEL Stop: 08/27/25 19:59 Last Admin: 07/29/25 05:26 Dose: Not Given Documented By: jono Admin: 07/29/25 03:21 Dose: Not Given Documented By: jono Admin: 07/29/25 00:19 Dose: Not Given Documented By: jono Admin: 07/28/25 22:00 Dose: Not Given Documented By: jono Admin: 07/28/25 21:59 Dose: Not Given Documented By: jono Potassium Chloride (Potassium Chloride 20 Meq/15 Ml Udc) 40 meq PO NOW STA Stop: 07/28/25 20:36 Last Admin: 07/28/25 21:08 Dose: 40 meq Documented By: jono Imaging Data Radiologist's Impression: Chest X-Ray 07/28/25 12:23 SINGLE VIEW CHEST CLINICAL HISTORY: Dyspnea FINDINGS: An AP, portable, upright chest radiograph is compared to study dated 06/22/2025 and correlated with chest CT dated 10/24/2024. The heart is enlarged and atherosclerotic calcification of the thoracic aorta. There is prominence of the pulmonary vasculature. Chronic interstitial thickening is similar to previous. Scarring/atelectasis is noted at the lung bases. No airspace consolidation or large pleural effusion is identified. No pneumothorax is seen. The skeletal structures are osteopenic. The bony thorax is grossly intact. Fusion hardware seen in the lower cervical spine. IMPRESSION: 1. Cardiomegaly with prominence of the pulmonary vasculature. Correlate clinically for evidence of fluid overload/congestive change. 2. No airspace consolidation or large pleural effusion is identified. ACT 112: Negative or not required by law. Electronically signed by: Humberto Walls M.D. 07/28/2025 12:42 PM Discharge Plan Visit Data Chief Complaint: Respiratory Distress Stated Complaint: RESP. DIFFICULTY, HYPERGYLCEMIA ED Provider: Can Lyons Discharge Problem: Hyperosmolar hyperglycemic state (HHS), Acute respiratory distress Patient Disposition: Admitted As Inpatient Condition: Serious Discharge Instructions Interventions: ED Discharge Assessment Last Done: 07/28/25 17:26
--- NOTE | 2025-07-28 12:44 | XRay Report ---
SINGLE VIEW CHEST CLINICAL HISTORY: Dyspnea FINDINGS: An AP, portable, upright chest radiograph is compared to study dated 06/22/2025 and correla cabrera with chest CT dated 10/24/2024. The heart is enlarged and atherosclerotic calcification of the tho racic aorta. There is prominence of the pulmonary vasculature. Chronic interstitial thickening is sim ilar to previous. Scarring/atelectasis is noted at the lung bases. No airspace consolidation or large pleural effusion is identified. No pneumothorax is seen. The skeletal structures are osteopenic. The bony thorax is grossly intact. Fusion hardware seen in the lower cervical spine. IMPRESSION: 1. Cardiomegaly with prominence of the pulmonary vasculature. Correlate clinically for evidence of fl uid overload/congestive change. 2. No airspace consolidation or large pleural effusion is identified. ACT 112: Negative or not required by law. Electronically signed by: Humberto Walls M.D. 07/28/2025 12:42 PM
[2025-07-28] MEDS: SODIUM CHLORIDE 0.9% 1,000 ML IV ONE ×2 (12:46→13:43)
[2025-07-28 12:50] LABS: Base Excess VBG -2.0 mEq/L; HCO3 VBG 20 mmol/L; Oxygen Saturation VBG 71.7 %; PCO2 VBG 28 mmHg (38-50); PO2 VBG 37 mmHg; pH VBG 7.47 (7.36-7.41)
[2025-07-28 12:54] LABS: Hematocrit (blood only) 34.6 % (37.0-47.0); Hemoglobin 12.5 g/dL (12.0-16.0); Immature Granulocytes # (auto) 0.02 K/uL (0.01-0.20); Immature Granulocytes % (auto) 0.2 %; Mean Corpuscular Hemoglobin 31.1 pg (25.0-34.0); Mean Corpuscular Volume 86.1 fL (80.0-100.0); Platelet Count 182 K/uL (130-400); RDW Standard Deviation 42.7 fL (36.4-46.3); Red Blood Count 4.02 M/uL (4.20-5.40); White Blood Count 8.61 K/ul (4.8-10.8)
[2025-07-28 13:27] LABS: Appearance Urine Clear (Clear); Bacteria Urine Automated 4+ (None Seen); Cast Urine Automated 0-2 /lpf (0-2); Glucose Urine UA 3+ (Negative); RBC Urine Automated >20 /hpf (0-2); WBC Urine Automated 21-50 /hpf (0-5)
[2025-07-28] MEDS ORDERED: GLUCOSE 40% GEL 15 GM TUBE PO PRN (13:34)
[2025-07-28] MEDS ORDERED: GLUCAGON FOR INJ 1 MG VIAL SQ PRN (13:34)
[2025-07-28] MEDS ORDERED: GLUCOSE 10 TAB/TUBE PO PRN (13:34)
[2025-07-28] MEDS ORDERED: CARBOHYDRATES FOR HYPOGLYCEMIA PO PRN (13:34)
[2025-07-28] MEDS ORDERED: DEXTROSE 50% 50 ML SYRINGE IV PRN (13:34)
[2025-07-28 13:35] LABS: Influenza A virus by PCR Negative (Neg); Influenza B virus by PCR Negative (Neg); SARS CoV2 RNA(COVID-19) Ceph NEGATIVE (Negative)
[2025-07-28 13:35] LABS: Alanine Aminotransferase 27.0 U/L (7-52); Albumin Level 3.9 gm/dl (3.4-5.0); Alkaline Phosphatase 115.0 U/L (34-104); Anion Gap 20.0 (3-11); Bilirubin,Total 0.8 mg/dl (0.2-1.0); Blood Urea Nitrogen 20.0 mg/dl (6-23); Calcium 9.7 mg/dl (8.6-10.3); Carbon Dioxide 19.0 mmol/L (21-32); Chloride 92.0 mmol/L (98-107); Creatinine Clr Calc Pharmacy 44.3 ml/min; Glucose 908.0 mg/dl (70-99(Fasting)); Lipase 43.0 U/L (11-82); Magnesium 2.2 mg/dl (1.7-2.4); Potassium 3.8 mmol/L (3.5-5.1); Sodium 131.0 mmol/L (136-145); Thyroid Stimulating Hormone 1.683 uIu/ml (0.300-4.500); Total Protein 8.0 gm/dl (6.0-8.3)
[2025-07-28] MEDS: SODIUM CHLORIDE 0.9% 500 ML IV ONE (13:46)
[2025-07-28] MEDS ORDERED: PHARMACY GLYCEMIC MGMT CONSULT PRN (13:59)
[2025-07-28] MEDS: cefTRIAXone SODIUM 2,000 MG/50 ML BAG IV STA (14:00)
[2025-07-28] MEDS: INSULIN REGULAR 250 UNITS in SODIUM CHLORIDE 0.9% 247.5 ML IV SCH (14:09)
[2025-07-28] MEDS: NovoLIN-R BOLUS FROM BAG IV ONE (14:10)
--- NOTE | 2025-07-28 14:16 | History & Physical Report ---
Date of Service July 28, 2025 Assessment & Plan (1) Urinary tract infection: (2) COPD (chronic obstructive pulmonary disease): (3) Insulin dependent type 2 diabetes mellitus: (4) Hyperosmolar hyperglycemic state (HHS): (5) HTN (hypertension): (6) Osteoporosis: (7) Coronary artery disease: (8) Intraductal carcinoma of left breast: Plan 75 yo female with pmhx of COPD, pulmonary hypertension, cirrhosis, hx of Torsades de pointes, GERD, CAD, osteoporosis, HFpEF, H/O DVT (x2 RLE in on Coumadin), H/O Breast cancer who presents for SOB at home for past few days 2/2 HHS. Neuro: #Metabolic Encephalopathy -2/2 AGMA and respiratory alkalosis -mild in nature Plan: -delirium precautions -check B12, TSH, start folic acid and thiamine -should improve with improvement in glucose Cardiac: #Type 2 IL -in setting of metabolic stressors -trend troponins #HFpEF #CAD #Hx of Torsades de Pointes -does have some pulmonary edema on imaging -treatment of HHS is fluids -monitor fluid status -hold isosorbide Respiratory: #Acute Hypoxic Respiratory Failure #Secondary Respiratory Alkalosis in setting of Metabolic Acidosis #COPD #Hx of PE -2/2 compensation for HHS -does have some pulmonary edema on imaging but looks clinically dry -elevated lactic acid sugestive of infectious process driving HHS Plan: -switch from Bipap to CPAP given overcompensation on VBG -start incentive spirometer -check biofire, BNP -duonebs q6hr prn -continue coumadin GI: #Cirrhosis -hx of varices #GERD -hold famotidine Renal: #CKD Stage 3b -monitor creatinine #Complicated UTI #Hx of Renal Stent Placement #Sepsis -f/u urine culture, blood cultures -check CT abdomen/pelvis without contrast to look for patency of stent or other cause of UTI -continue ceftriaxone Endocrine: #HHS #Uncontrolled DM Type 2 -patient with glucose over 900 -patient not sure what happened, insulin pump stopped working days ago -could have been 2/2 UTI vs. upper respiratory infection vs. non working insulin pump Plan: -insulin drip with aggressive hydration -pharmacy consult, appreciate recs -frequent lab draws -personal development educator consult, appreciate recs -PT/OT, significant concern patient unable to care for self at home given frequent hospitalizations, nonworking insulin pump for days I spent a total of 70 minutes providing critical care to the patient, including [id number] time with the patient and/or family, reviewing medical records, ordering and reviewing diagnostic tests, and coordinating care with other healthcare providers. This time includes specific activities such as managing oxygenation, pressors, labs, orders, history taking, physical examination, medical decision making, counseling, and education. History of Present Illness Chief Complaint: -shortness of breath Primary Care Provider: Natalia Heller PA-C 75 yo female with pmhx of COPD, pulmonary hypertension, cirrhosis, hx of Torsades de pointes, GERD, CAD, osteoporosis, HFpEF, H/O DVT (x2 RLE in on Coumadin), H/O Breast cancer who presents for SOB at home for past few days. Had admission in 06/2025 for sepsis 2/2 kidney stone. In the ED, found to have glucose over 900, insulin drip and hydration started, ceftriaxone given for UTI, admitted to medicine for further workup. Patient seen and examined at bedside. present. Patient on CPAP and short of breath not really able to give much history. Per patient has been getting steadily more short of breath for the past few days. She has been been spending most of her time in a recliner and cannot lay flat. Poor appetite. Denies chest pain, nausea, vomiting, diarrhea. Does have a bit of burning with urination. Has been producing significant amounts of Muzik mucus over the past few days. No tobacco use, no alcohol use, no drug use, full code. Allergies Allergy/AdvReac Type Severity Reaction Status Date / Time alendronate sodium Allergy Severe DIFFICULTY Verified 06/23/25 09:50 BREATHING/BURNING SENSATION esomeprazole Allergy Intermediate Hives Verified 06/23/25 09:50 Home Medications Medication Instructions Recorded Confirmed Type warfarin 5 mg tablet 5 mg PO QPM 01/12/20 06/24/25 History cyanocobalamin (vitamin B-12) 1,000 mcg sublingual QAM 09/21/22 06/22/25 History 1,000 mcg sublingual tablet cholecalciferol (vitamin D3) 25 1,000 unit PO QAM #30 caps 10/29/24 06/22/25 Rx mcg (1,000 unit) capsule fluticasone propionate 50 2 spray intranasal QAM #1 mL 10/29/24 06/22/25 Rx mcg/actuation nasal spray,suspension (Flonase Allergy Relief) furosemide 20 mg tablet 20 mg PO QAM #30 tabs 10/29/24 06/22/25 Rx isosorbide mononitrate 60 mg 60 mg PO QAM #30 tabs 10/29/24 06/22/25 Rx tablet,extended release 24 hr multivitamin (Daily-Moiz tablet) 1 tab PO QAM #30 tabs 10/29/24 06/22/25 Rx rosuvastatin 20 mg tablet 20 mg PO QAM #30 tabs 10/29/24 06/22/25 Rx ascorbic acid (vitamin C) 1,000 mg 1,000 mg PO QAM 12/10/24 06/22/25 History tablet (Vitamin C) ferrous sulfate 325 mg (65 mg 325 mg PO QAM 12/10/24 06/22/25 History iron) tablet insulin aspart U-100 100 unit/mL See Rx Instructions .Route .COMPLEX 12/10/24 06/22/25 History subcutaneous solution (Novolog U-100 Insulin aspart) metformin 1,000 mg tablet 1,000 mg PO BID 12/10/24 06/22/25 History albuterol sulfate 0.63 mg/3 mL 0.63 mg continuous nebulization Q6 06/22/25 06/22/25 History solution for nebulization PRN Wheezing albuterol sulfate 90 mcg/actuation 2 puff inhalation Q6 PRN Shortness 06/22/25 06/22/25 History aerosol inhaler (Ventolin HFA) Of Breath famotidine 40 mg tablet 40 mg PO QAM 06/22/25 06/22/25 History fluticasone fur. 100 mcg-umeclid 1 inh inhalation QAM 06/22/25 06/22/25 History 62.5 mcg-vilant 25 mcg inhalat.powder (Trelegy Ellipta) lorazepam 0.5 mg tablet 0.5 mg PO Q6 PRN Anxiety 06/22/25 06/22/25 History montelukast 10 mg tablet 10 mg PO HS 06/22/25 06/22/25 History nitroglycerin 0.3 mg sublingual 0.3 mg sublingual .EVERY 5 MINUTES 06/22/25 06/22/25 History tablet PRN Chest Pain potassium chloride 10 mEq 10 meq PO QAM 06/22/25 06/22/25 History capsule,extended release quetiapine 25 mg tablet 25 mg PO HS 06/22/25 06/22/25 History metoprolol succinate 25 mg 25 mg PO QAM #30 tabs 06/25/25 Rx tablet,extended release 24 hr Past Med/Surg History Problem List (Updated 07/28/25 @ 14:26 by Dioni Wright MD) Hyperosmolar hyperglycemic state (HHS) Hyperglycemia (Acute) SOL (acute kidney injury) (Acute) Urinary tract infection (Acute) Calculus of right ureter (Acute) Vomiting (Acute) HX: breast cancer Ureteral stone COPD (chronic obstructive pulmonary disease) (Acute) CHF (congestive heart failure) (Acute) GARCIA (dyspnea on exertion) (Acute) Nonspecific ST-T wave electrocardiographic changes Pulmonary hypertension Morbid obesity E coli bacteremia Anxiety Cirrhosis SOB (shortness of breath) Cardiac arrest Prolonged QT interval Torsades de pointes GERD (gastroesophageal reflux disease) Diabetic polyneuropathy Hyperlipidemia Insulin dependent type 2 diabetes mellitus Depression Elevated troponin Acute on chronic diastolic heart failure COPD exacerbation ASCVD (arteriosclerotic cardiovascular disease) HTN (hypertension) Ankle fracture, bimalleolar, closed Anemia Chronic anticoagulation (Chronic) Brittany-prosthetic fracture around prosthetic knee Osteoporosis Coronary artery disease Microvascular angina Medical History COPD (chronic obstructive pulmonary disease) History of pulmonary embolism Chronic atrial fibrillation Benign neoplasm of colon Osteoarthritis History of DVT (deep vein thrombosis) "RLE x 2 in 1980s" 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) "Abnormal left breast mammogram 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 Estrogen receptor positive and progesterone receptor positive Status post lumpectomy with sentinel lymph node biopsy stage [id number] 04/07/2015 Status post completion of radiation therapy 07/21/2015 received 6640 cGy" On 07/25/15 17:54 Jayleen Bates wrote "Abnormal left breast mammogram 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 Estrogen receptor positive and progesterone receptor positive Status post lumpectomy with sentinel lymph node biopsy stage [id number] 04/07/2015 Status post completion of radiation therapy 07/21/2015 received 6640 cGy" On 07/25/15 17:49 Jayleen Bates wrote "Abnormal left breast mammogram 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 Estrogen receptor positive and progesterone receptor positive Status post lumpectomy with sentinel lymph node biopsy stage [id number] 04/07/2015" Surgical History H/O partial mastectomy "left breast 04/2015 with lymph node biopsy" H/O arthroscopic knee surgery H/O colonoscopy History of carpal tunnel surgery S/P cervical spinal fusion S/P dilation and curettage H/O vein stripping Family History Other Breast cancer Diabetes Heart disease Social History Smoking Status: Former smoker Tobacco Type: Cigarettes Second Hand Exposure: No; Do You Dip or Chew Tobacco: No; Hx Alcohol Use: No Hx Substance Use: No Preferred Language: Bengali Communication Ability: Effective Dandy Operator Required: No Beliefs That Will Affect Care: None Current Living Situation: Spouse Current Living Situation Comment: lives at home with and step-son Feels Safe at Home: Yes Assistive Devices: Cane, CPAP, Oxygen - at Night, Walker, Wheelchair and Other Review of Systems Review of Systems: -negative unless listed above Physical Exam Physical Exam: Gen: A&O 3 dyspneic HEENT: NCAT, EOMI, not icteric. External ears normal. No rhinorrhea. Dry mucous membranes. Neck: Supple, full range of motion, no observable masses, No meningeal sign. Lungs: fair air movement bilaterally, no wheezing or crackles CV: RRR, no edema. Abdomen: Soft, nondistended, No rebound tenderness. MSK: No joint swelling, no redness. Skin: No rashes, petechiae, lesions. Normal color per patient. Neuro: Normal Gait, Grossly intact. Psych: Appropriate for situation. Results & Data Results & Data Vital Signs (Past 12 Hours) Vital Signs Temp Pulse Pulse Resp BP BP Pulse Ox 07/28/25 13:50 98 H 29 H 100 07/28/25 12:51 100 H 23 99 07/28/25 12:45 101 H 25 H 99 07/28/25 12:45 117/75 07/28/25 12:45 117/75 07/28/25 12:45 117/75 07/28/25 12:45 117/75 07/28/25 12:45 117/75 07/28/25 12:42 103 H 28 H 100 07/28/25 12:42 104 H 07/28/25 12:36 117 H 23 99 07/28/25 12:30 110/83 07/28/25 12:22 36.6 C 117 H 29 H 110/83 100 07/28/25 12:22 100 07/28/25 12:22 07/28/25 12:20 104 H 32 H 100 07/28/25 12:09 36.6 C 105 H 31 H 110/83 100 O2 Del Method FiO2 07/28/25 13:50 30 07/28/25 12:51 07/28/25 12:45 07/28/25 12:45 07/28/25 12:45 07/28/25 12:45 07/28/25 12:45 07/28/25 12:45 07/28/25 12:42 07/28/25 12:42 07/28/25 12:36 07/28/25 12:30 BiPAP 07/28/25 12:22 BiPAP 07/28/25 12:22 BiPAP 07/28/25 12:22 BiPAP 07/28/25 12:20 30 07/28/25 12:09 BiPAP Laboratory Results -personally reviewed, no leukocytosis, VBG with respiratory alkalosis, Na of 131 low due to hyperglycemia, AGMA noted, creatinine around baseline, slightly increased HS troponin in setting of significant strain, UA suggestive of UTI Medications Administered Sodium Chloride (Nss) 1,000 mls @ 999 mls/hr IV .Q1H1M ONE Stop: 07/28/25 14:34 Last Admin: 07/28/25 13:43 Dose: 999 mls/hr Documented By: darian Insulin Human Regular 250 (units/ Sodium Chloride) 250 mls @ 9.2 mls/hr IV .Q24H [facility]; Protocol Stop: 08/27/25 13:44 Last Admin: 07/28/25 14:09 Dose: 9.2 units/hr, 9.2 mls/hr Documented By: darian Co-signed By: MATTHEW (2) COPD (chronic obstructive pulmonary disease) COPD type: unspecified COPD Qualified Code(s): J44.9 - Chronic obstructive pulmonary disease, unspecified (5) HTN (hypertension) Hypertension type: unspecified Qualified Code(s): I10 - Essential (primary) hypertension (7) Coronary artery disease Associated angina: unspecified whether angina present Coronary Disease- Associated Artery/Lesion type: unspecified vessel or lesion type [place] vs. transplanted heart: [place] heart Qualified Code(s): I25.10 - Atherosclerotic heart disease of [place] coronary artery without angina pectoris
[2025-07-28] MEDS: DC HOME INSULIN PUMP STA (14:34)
[2025-07-28] MEDS ORDERED: ALBUT/IPRATROP 3MG/0.5MG NEB 3 ML VIAL NEB PRN (14:35)
[2025-07-28] MEDS: STAT IV Infusion **Titration per Protocol STA (14:35)
[2025-07-28] MEDS: HHS GOAL RANGE 250-350 mg/dl ONE (14:35)
[2025-07-28] MEDS: SODIUM CHLORIDE 0.45 % 1,000 ML IV SCH (14:53)
[2025-07-28 15:39] LABS: Base Excess VBG -6.3 mEq/L; HCO3 VBG 18 mmol/L; Oxygen Saturation VBG 95.5 %; PCO2 VBG 31 mmHg (38-50); PO2 VBG 69 mmHg; pH VBG 7.37 (7.36-7.41)
[2025-07-28 15:57] LABS: Chlamydia pneumoniae PCR Not Detected (NotDetected); Coronavirus 229E PCR Not Detected (NotDetected); Coronavirus CoV-2 (COVID19)PCR Not Detected (NotDetected); Coronavirus HKU1 PCR Not Detected (NotDetected); Coronavirus NL63 PCR Not Detected (NotDetected); Coronavirus OC43PCR Not Detected (NotDetected); Human Metapneumovirus PCR Not Detected (NotDetected); Parainfluenza Virus 1 PCR Not Detected (NotDetected); Parainfluenza Virus 2 PCR Not Detected (NotDetected); Parainfluenza Virus 3 PCR Not Detected (NotDetected); Parainfluenza Virus 4 PCR Not Detected (NotDetected); Respiratory Syncytial VirusPCR Not Detected (NotDetected); Rhinovirus/Enterovirus PCR Not Detected (NotDetected)
--- NOTE | 2025-07-28 16:07 | CT Scan Report ---
Technique: Axial computed tomography images were obtained of the abdomen and pelvis without intravenous contrast. Comparison is made to the prior CT dated 06/22/2025 Findings: The liver is nodular in contour, concerning for cirrhosis. No definite liver mass lesion is seen on this noncontrast study. The gallbladder is distended but otherwise appears unremarkable. No bile duct dilatation is noted. The spleen is of normal size. No focal splenic lesion is evident. The pancreas appears normal with no sign of acute or chronic pancreatitis and no mass lesion noted. The pancreatic duct is of normal caliber. There is an unchanged 9 mm left adrenal nodule, likely a benign adenoma. The right adrenal gland appears normal There are multifocal renal vascular calcifications bilaterally. There is a right ureteral stent in expected position. There is mild prominence of the right renal collecting system. There is overt no hydronephrosis. No definite renal mass lesion is identified. There is a 2 cm left renal cyst. Pyelonephritis is not well evaluated for on this noncontrast study The aorta is of normal caliber. No abdominal adenopathy is seen. The stomach appears normal. There is no sign of small bowel obstruction. The colon appears unremarkable. The appendix appears normal also. No free intraperitoneal fluid or air is identified. No distal ureteral or bladder calculi are seen. No obvious bladder mass lesion is evident. The iliac arteries are of normal caliber. No pelvic adenopathy is noted. There is mild atelectasis or scar within the lingula. There is coronary atherosclerosis. Mild thoracolumbar degenerative disc disease is seen. No fracture is identified. No focal osseous lesion is seen Impression: 1. Mild prominence of the right renal collecting system without overt hydronephrosis. A right ureteral stent is in place 2. Left renal cyst 3. Cirrhosis 4. Small left adrenal adenoma Electronically signed by Gino Salazar 07-28-2025 4:06 PM
[2025-07-28] MEDS ORDERED: LORazepam 0.5 MG TAB PO PRN (17:50)
[2025-07-28] MEDS ORDERED: ACETAMINOPHEN 325 MG TAB PO PRN (17:50)
[2025-07-28] MEDS ORDERED: ALBUTEROL HFA 8 GM INHALER INH PRN (17:50)
[2025-07-28] MEDS ORDERED: ONDANSETRON INJ 2 MG/ML 2 ML VIAL IV PRN (17:50)
[2025-07-28] MEDS: INSULIN ASPART PER UNIT CHARGE SC SCH (18:04)
--- NOTE | 2025-07-28 18:56 | Electrocardiogram Report ---
Test Reason : Blood Pressure : */* mmHG Vent. Rate : 103 BPM Atrial Rate : 103 BPM P-R Int : 154 ms QRS Dur : 96 ms QT Int : 400 ms P-R-T Axes : 71 58 -5 degrees QTcB Int : 524 ms Sinus tachycardia Prolonged QT Abnormal ECG When compared with ECG of 22-Jun-2025 13:40, Sinus rhythm has replaced Atrial fibrillation T wave inversion now evident in Inferior leads T wave inversion now evident in Anterior leads Confirmed by Isaac Man ([id number]) on 07/28/2025 6:56:16 PM Referred By: Confirmed By: Isaac Man
[2025-07-28] MEDS: SODIUM CHLOR 0.45% + 20MEQ KCL 20 MEQ/1,000 ML BAG IV SCH (19:21)
[2025-07-28 19:32] LABS: Anion Gap 9.0 (3-11); Blood Urea Nitrogen 18.0 mg/dl (6-23); Calcium 9.3 mg/dl (8.6-10.3); Carbon Dioxide 25.0 mmol/L (21-32); Chloride 105.0 mmol/L (98-107); Creatinine Clr Calc Pharmacy 47.8 ml/min; Glucose 445.0 mg/dl (70-99(Fasting)); Magnesium 2.1 mg/dl (1.7-2.4); Potassium 3.2 mmol/L (3.5-5.1); Sodium 139.0 mmol/L (136-145)
[2025-07-28 19:55] LABS: INR 2.1 (0.9-1.1); Prothrombin Time 21.0 Seconds (9.0-12.0)
[2025-07-28] MEDS: POTASSIUM CHLORIDE 20 MEQ/15 ML UDC PO STA (21:08)
[2025-07-28] MEDS: WARFARIN SOD 5 MG TAB PO SCH (21:08)
[2025-07-28] MEDS: PENDING D5 1/2NS+20mEq KCL IVF SCH (21:59)
[2025-07-28 23:21] LABS: Anion Gap 8.0 (3-11); Blood Urea Nitrogen 17.0 mg/dl (6-23); Calcium 8.9 mg/dl (8.6-10.3); Carbon Dioxide 26.0 mmol/L (21-32); Chloride 107.0 mmol/L (98-107); Creatinine Clr Calc Pharmacy 51.0 ml/min; Glucose 302.0 mg/dl (70-99(Fasting)); Magnesium 2.0 mg/dl (1.7-2.4); Potassium 4.3 mmol/L (3.5-5.1); Sodium 141.0 mmol/L (136-145)
[2025-07-29 02:56] LABS: Anion Gap 8.0 (3-11); Blood Urea Nitrogen 18.0 mg/dl (6-23); Calcium 8.4 mg/dl (8.6-10.3); Carbon Dioxide 22.0 mmol/L (21-32); Chloride 109.0 mmol/L (98-107); Creatinine Clr Calc Pharmacy 51.5 ml/min; Glucose 359.0 mg/dl (70-99(Fasting)); Magnesium 1.9 mg/dl (1.7-2.4); Potassium 3.7 mmol/L (3.5-5.1); Sodium 139.0 mmol/L (136-145)
[2025-07-29] MEDS: LANTUS PER UNIT CHARGE SC ONE (06:23)
[2025-07-29 07:03] LABS: INR 2.5 (0.9-1.1); Prothrombin Time 25.0 Seconds (9.0-12.0)
[2025-07-29 07:24] LABS: Anion Gap 6.0 (3-11); Blood Urea Nitrogen 17.0 mg/dl (6-23); Calcium 8.7 mg/dl (8.6-10.3); Carbon Dioxide 26.0 mmol/L (21-32); Chloride 111.0 mmol/L (98-107); Creatinine Clr Calc Pharmacy 51.9 ml/min; Glucose 140.0 mg/dl (70-99(Fasting)); Potassium 3.5 mmol/L (3.5-5.1); Sodium 143.0 mmol/L (136-145)
[2025-07-29 07:36] LABS: Magnesium 2.0 mg/dl (1.7-2.4)
[2025-07-29] MEDS ORDERED: POTASSIUM PHOS 3 MMOL/1 ML INFUSION IV STA (07:40)
[2025-07-29] MEDS: POTASSIUM PHOSPHATE 21 MMOL in SODIUM CHLORIDE 0.9% 500 ML IV ONE (08:00)
[2025-07-29] MEDS ORDERED: NON-FORMULARY MEDICATION (Fluticasone-Umeclidin-Vilanter [Trelegy Ellipta] 100-62.5-25 mcg INH SCH (09:00)
--- NOTE | 2025-07-29 09:06 | Hospitalist Progress Note ---
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 HHS-> resolved Uncontrolled type 2 diabetes Hypophosphatemia Presenting with glucose over 900 Insulin pump and glucometer stopped working days ago VBG revealed pH 7.47 and pCO2 28 indicating respiratory alkalosis Initially placed on insulin drip-> now transitioned A1C 13.9% Glycemic pharmacy consulted for SSI Appreciate director of compliance recs-> discussed via TT and recommends patient discuss with [facility] about switching to SQ insulin instead of pump, pt has appt on 08/14/2025 Continue IV fluids Replace phos and recheck labs at 1400 Acute respiratory distress-> resolved COPD Placed on bipap by EMS due to severe respiratory distress CXR notes prominence of pulmonary vasculature but no consolidation Biofire negative Likely secondary to HHS, respiratory distress resolved with resolution of HHS Wean O2 as able-> baseline is O2 at night via CPAP and RA during day Continue inhalers and montelukast Complicated UTI s/p right ureteral stent CTAP unremarkable UA +leuk esterase, WBC, bacteria Urine culture prelim E Coli Continue ceftriaxone Elevated troponin Initial 31 with repeat 49 EKG with T wave inversions Likely demand ischemia secondary to HHS Trend troponin q6hr Sepsis Meets criteria with tachycardia, tachypnea, elevated lactate in setting of possible UTI Follow blood cultures Antibiotics as above Metabolic encephalopathy-> resolved Secondary to HHS Delirium precautions Chronic atrial fibrillation Rate controlled INR therapeutic at 2.5 Continue warfarin and metoprolol Hypertension Resume Imdur tomorrow HFpEF Monitor fluid status closely while on aggressive IVF Resume furosemide tomorrow Hyperlipidemia Continue statin GERD Continue famotidine Depression Continue Seroquel DVT Prophylaxis: on warfarin Code Status: FULL CODE PCP: Natalia Heller Disposition: PT/OT evals pending Patient seen in collaboration with Dr. Chinchilla. Please see addendum. I spent a total of 60 minutes coordinating, documenting and providing care for this patient excluding time spent in the performance of separately billed services or time spent by another provider/QHP. Admission and Anticipated Discharge Date Admission Date: July 28, 2025 Supervising Physician Co-Signing Physician Notes Attending addendum: The patient was seen and examined in telemetry unit She was admitted with hyperosmolar diabetic state She has been on intravenous fluid and intravenous insulin and has been feeling better since admission On examination Sitting on a chair without any acute distress Remains hemodynamically stable, afebrile with a blood pressure of 154/80 Chestclear to auscultate bilaterally HeartS1-S2, regular Abdomenbenign Extremitiesno edema CNSalert, awake and oriented x 3 Her admission labs, EKG and imaging studies reviewed Has hyperosmolar diabetic state with acute confusion likely secondary to complicated UTI has been started on intravenous fluid and intravenous insulin and also intravenous Rocephin Hemoglobin A1c more than 13likely not taking her insulin regularly and/or not following diet Clinically better and mental status change seems to be cleared Agree with assessment plan as outlined above by AUDELIA Valenzuela and take the full responsibility of care in the hospital I spent a total of 20 minutes examining the patient, reviewing the chart and the investigations, reviewing medications and planning of care Dr Nki Chinchilla Subjective Patient seen resting in bed Reports her breathing is better Denies dizziness, chest pain, abdominal pain, N/V/D reports concern about frequent UTIs reports patient is noncompliant with meds Review of Systems Review of Systems: All systems reviewed & are unremarkable except as noted in HPI & below Physical Exam Physical Exam: General/Psych: obese, sitting up in bed, NAD, conversing easily Head: normocephalic, atraumatic Eyes: normal inspection, PERRL, conjunctivae pink Neck: normal visual inspection, trachea midline Respiratory: normal respiratory effort, lungs clear to auscultation, no wheeze/rales/rhonchi, no accessory muscle use Cardiovascular: irregularly irregular rate and rhythm, +murmur Extremities: no cyanosis or clubbing, normal peripheral pulses, no BLE edema Abdomen/GI: normal bowel sounds, soft, nontender Neurologic/MSK: A+Ox3, motor strength 5/5, moves all extremities Skin: no rashes, normal color, warm and dry Results & Data Results & Data Vital Signs (Past 12 Hours) Vital Signs Temp Pulse Pulse Resp BP Pulse Ox O2 Del Method 07/29/25 03:01 36.7 C 76 18 96/60 L 99 CPAP 07/29/25 02:20 99 H 16 100 07/28/25 23:12 93 H 17 99 07/28/25 23:04 36.6 C 98 H 20 110/64 98 CPAP FiO2 07/29/25 03:01 07/29/25 02:20 30 07/28/25 23:12 30 07/28/25 23:04 Laboratory Results BMP 07/28/25 07/28/25 07/28/25 12:31 18:51 22:29 Sodium 131 L 139 141 Potassium 3.8 3.2 L 4.3 D Chloride 92 L 105 107 Carbon Dioxide 19 L 25 26 BUN 20 18 17 Creatinine 1.21 H 1.12 1.05 Glucose 908 H* 445 H* 302 H* Calcium 9.7 9.3 8.9 07/29/25 07/29/25 02:14 06:00 Sodium 139 143 Potassium 3.7 3.5 Chloride 109 H 111 H Carbon Dioxide 22 26 BUN 18 17 Creatinine 1.04 1.03 Glucose 359 H* 140 H Calcium 8.4 L 8.7 Liver Function 07/28/25 Range/Units 12:31 Total Bilirubin 0.8 (0.2-1.0) mg/dl Direct Bilirubin 0.2 (0-0.2) mg/dl AST 45 H (13-39) U/L ALT 27 (7-52) U/L Alkaline Phosphatase 115 H (34-104) U/L Albumin 3.9 (3.4-5.0) gm/dl I have independently reviewed and interpreted patient's admitting labs including PT/INR, BMP, mag, phos, troponin, A1C Medications Administered Current Inpatient Medications Acetaminophen (Acetaminophen 325 Mg Tab) 650 mg PO Q4H PRN PRN Reason: Pain or Fever Stop: 08/27/25 17:49 Albuterol (Albut/Ipratrop 3mg/0.5mg Neb 3 Ml Vial) 3 ml INH Q6H PRN PRN Reason: Wheezing Stop: 08/27/25 18:13 Albuterol (Albuterol Hfa 8 Gm Inhaler) 2 puffs INH Q6 PRN PRN Reason: Shortness Of Breath Stop: 08/27/25 17:49 Dextrose (Dextrose 50% 50 Ml Syringe) 25 - 50 ml IV UD PRN; Protocol PRN Reason: Hypoglycemia Protocol Stop: 08/27/25 13:33 Fluticasone Furoate (Fluticasone Furoate 100mcg 14 Puffs/Inhaler) 1 puffs INH DAILY [facility] Stop: 08/28/25 08:59 Last Admin: 07/29/25 09:54 Dose: 1 puffs Folic Acid (Folic Acid 1 Mg Tab) 1 mg PO QAM [facility] Stop: 08/28/25 08:59 Last Admin: 07/29/25 09:54 Dose: 1 mg Glucagon (Glucagon For Inj 1 Mg Vial) 1 mg SQ UD PRN; Protocol PRN Reason: Hypoglycemia Protocol Stop: 08/27/25 13:33 Glucose (Glucose 40% Gel 15 Gm Tube) 15 - 30 gm PO UD PRN; Protocol PRN Reason: Hypoglycemia Protocol Stop: 08/27/25 13:33 Glucose (Glucose 10 Tab/Tube) 4 - 8 tab PO UD PRN; Protocol PRN Reason: Hypoglycemia Protocol Stop: 08/27/25 13:33 Ceftriaxone Sodium (Rocephin) 2,000 mg in 50 mls @ 100 mls/hr IV Q24H [facility] Stop: 08/03/25 13:59 Potassium Chloride/Sodium Chloride (1/2 Nss + 20meq Kcl 1000ml) 20 meq in 1,000 mls @ 100 mls/hr IV .Q10H [facility] Stop: 08/01/25 11:29 Last Admin: 07/29/25 11:42 Dose: 100 mls/hr Insulin Aspart (Insulin Aspart Per Unit Charge) 0 units SC ACHS [facility] Stop: 08/28/25 11:29 Last Admin: 07/29/25 12:54 Dose: 13 units Insulin Aspart (Insulin Aspart Per Unit Charge) 0 units SC 0000 [facility] Stop: 08/29/25 00:00 Insulin Glargine (Lantus Per Unit Charge) 0 units SC TODAY@1700 [facility]; Protocol Stop: 07/29/25 23:59 Lorazepam (Lorazepam 0.5 Mg Tab) 0.5 mg PO Q6 PRN PRN Reason: Anxiety Stop: 08/27/25 17:49 Metoprolol Succinate (Metoprolol Succ 25mg Ext Rel Tab) 25 mg PO QAM [facility] Stop: 08/28/25 08:59 Last Admin: 07/29/25 09:54 Dose: 25 mg Miscellaneous (Carbohydrates For Hypoglycemia ) 15 - 30 gm PO UD PRN PRN Reason: Hypoglycemia Protocol Stop: 08/27/25 13:33 Miscellaneous Information (Pharmacy Glycemic Mgmt Consult) 1 each N/A UD PRN PRN Reason: Consult Stop: 08/27/25 13:58 Ondansetron HCl (Ondansetron Inj 2 Mg/Ml 2 Ml Vial) 4 mg IV Q6H PRN PRN Reason: Nausea Stop: 08/27/25 17:49 Polyethylene Glycol (Polyethylene (Miralax) 17 Gm Pack) 17 gm PO DAILY PRN PRN Reason: Constipation Stop: 08/27/25 17:49 Quetiapine Fumarate (Quetiapine Fumarate 25 Mg Tablet) 25 mg PO HS [facility] Stop: 08/27/25 20:59 Last Admin: 07/28/25 21:09 Dose: 25 mg Rosuvastatin Calcium (Rosuvastatin Calcium 20 Mg Tab) [facility] Stop: 08/28/25 08:59 Last Admin: 07/29/25 09:54 Dose: 20 mg Thiamine HCl (Thiamine Hcl 100 Mg Tab) 100 mg PO QAM [facility] Stop: 08/28/25 08:59 Last Admin: 07/29/25 09:54 Dose: 100 mg Umeclidinium/Vilanterol (Umeclidinium/Vilanterol 62.5/25mcg 7 Puffs/Inhaler) 1 puffs INH DAILY [facility] Stop: 08/28/25 08:59 Last Admin: 07/29/25 09:55 Dose: 1 puffs Warfarin Sodium (Warfarin Sod 5 Mg Tab) 5 mg PO QPM [facility] Stop: 08/27/25 20:59 Last Admin: 07/28/25 21:08 Dose: 5 mg (6) COPD (chronic obstructive pulmonary disease) COPD type: unspecified COPD Qualified Code(s): J44.9 - Chronic obstructive pulmonary disease, unspecified (7) HTN (hypertension) Hypertension type: unspecified Qualified Code(s): I10 - Essential (primary) hypertension (8) Coronary artery disease Associated angina: unspecified whether angina present Coronary Disease- Associated Artery/Lesion type: unspecified vessel or lesion type [place] vs. transplanted heart: [place] heart Qualified Code(s): I25.10 - Atherosclerotic heart disease of [place] coronary artery without angina pectoris
[2025-07-29] MEDS: ROSUVASTATIN CALCIUM 20 MG TAB PO SCH (09:54)
[2025-07-29] MEDS: FOLIC ACID 1 MG TAB PO SCH (09:54)
[2025-07-29] MEDS: METOPROLOL SUCC 25MG EXT REL TAB PO SCH (09:54)
[2025-07-29] MEDS: THIAMINE HCL 100 MG TAB PO SCH (09:54)
[2025-07-29] MEDS: FLUTICASONE FUROATE 100MCG 14 PUFFS/INHALER INH SCH (09:54)
[2025-07-29] MEDS: UMECLIDINIUM/VILANTEROL 62.5/25MCG 7 PUFFS/INHALER INH SCH (09:55)
[2025-07-29] MEDS: D5W AND 1/2NSS + 20MEQ KCL 20 MEQ/1,000 ML BAG IV SCH (10:00)
[2025-07-29 10:50] LABS: Hemoglobin A1C 13.9 % (4.5-5.6)
--- NOTE | 2025-07-29 11:31 | Pharmacy Report ---
Pharmacy Glycemic Short Note 2 - Date of Service July 29, 2025 - Glycemic Short BSG Results (Last 24 hours): 07/28/25 07/28/25 07/28/25 12:31 12:38 14:38 Glucose 908 H* POC Glucose > 600 H* POC Glucose (other) > 700 H* 07/28/25 07/28/25 07/28/25 15:56 16:58 17:55 Glucose POC Glucose 557 H* 566 H* 522 H* POC Glucose (other) 07/28/25 07/28/25 07/28/25 18:51 19:04 20:03 Glucose 445 H* POC Glucose 425 H* 371 H* POC Glucose (other) 07/28/25 07/28/25 07/28/25 21:15 22:04 22:29 Glucose 302 H* POC Glucose 272 H 266 H POC Glucose (other) 07/28/25 07/29/25 07/29/25 23:04 01:02 02:14 Glucose 359 H* POC Glucose 324 H* 346 H* POC Glucose (other) 07/29/25 07/29/25 07/29/25 03:08 05:59 06:00 Glucose 140 H POC Glucose 299 H 145 H POC Glucose (other) 07/29/25 07/29/25 07/29/25 06:59 08:23 09:18 Glucose POC Glucose 90 73 103 H POC Glucose (other) OUTPATIENT ANTIDIABETIC REGIMEN: * NovoLog pump * Basal 7.2 units/hr 00-06, 8 units/hr 06-12, 8.9 units/hr 12-00 * Bolus 25 units with breakfast, 45 units with lunch, and 40 units with supper, CF 10 * metformin (Settings pulled from last admission) ASSESSMENT: * 75 year old admitted with blood sugars >900 concerns for HHS and started on insulin infusion. Insulin pump/glucometer stopped working prior to admission. Labs improving overnight and provider okay to transition off insulin infusion. Given Lantus 50 units x 1 this morning. Blood sugars stable, plan to start novolog SSI with lunch time check. Initially NPO for CPAP treatment, however now off CPAP and provider planning on ordering diet with lunch. Patient known to glycemic service from other admissions. Typically requires around ~70-80 units of basal once daily. Will plan to add on scale for basal later today as unclear what PO intake will be. PLAN FOR INPATIENT GLYCEMIC CONTROL: * Hold outpatient oral diabetes medications * Basal insulin * Lantus 50 units x 1 this AM with insulin drip overlap. * Lantus 0-20 units later today based upon BSG value * Bolus insulin * NovoLog per scale ACHS or Q6hrs while NPO * Goal Range: Low 110 mg/dL - High 140 mg/dL * Correction Factor: 10 mg/dL/unit * Nutritional / Prandial insulin per carb ratio of 1 unit per 4 grams CHO consumed
[2025-07-29] MEDS: SODIUM CHLOR 0.45% + 20MEQ KCL 20 MEQ/1,000 ML BAG IV SCH (11:42)
[2025-07-29] MEDS: INSULIN ASPART PER UNIT CHARGE SC SCH (12:54)
[2025-07-29 15:42] LABS: Anion Gap 6.0 (3-11); Blood Urea Nitrogen 20.0 mg/dl (6-23); Calcium 8.3 mg/dl (8.6-10.3); Carbon Dioxide 25.0 mmol/L (21-32); Chloride 106.0 mmol/L (98-107); Creatinine Clr Calc Pharmacy 46.1 ml/min; Glucose 354.0 mg/dl (70-99(Fasting)); Magnesium 1.8 mg/dl (1.7-2.4); Potassium 4.4 mmol/L (3.5-5.1); Sodium 137.0 mmol/L (136-145)
[2025-07-29] MEDS ORDERED: SODIUM PHOSPHATE 3 MMOL/1 ML 5 ML VIAL IV ONE (15:48)
[2025-07-29] MEDS: cefTRIAXone SODIUM 2,000 MG/50 ML BAG IV SCH (16:12)
[2025-07-29] MEDS: LANTUS PER UNIT CHARGE SC SCH (17:55)
[2025-07-29] MEDS: SODIUM PHOSPHATE 20 MMOL in SODIUM CHLORIDE 0.9% 500 ML IV ONE (17:55)
[2025-07-29] MEDS: MONTELUKAST SODIUM 10 MG TABLET PO SCH (22:33)
[2025-07-30] MEDS: INSULIN ASPART PER UNIT CHARGE SC SCH (00:19)
[2025-07-30 06:28] LABS: Hematocrit (blood only) 33.0 % (37.0-47.0); Hemoglobin 11.1 g/dL (12.0-16.0); Immature Granulocytes # (auto) 0.01 K/uL (0.01-0.20); Immature Granulocytes % (auto) 0.2 %; Mean Corpuscular Hemoglobin 30.0 pg (25.0-34.0); Mean Corpuscular Volume 89.2 fL (80.0-100.0); Platelet Count 103 K/uL (130-400); RDW Standard Deviation 47.6 fL (36.4-46.3); Red Blood Count 3.70 M/uL (4.20-5.40); White Blood Count 5.00 K/ul (4.8-10.8)
[2025-07-30 07:06] LABS: Anion Gap 6.0 (3-11); Blood Urea Nitrogen 17.0 mg/dl (6-23); Calcium 8.1 mg/dl (8.6-10.3); Carbon Dioxide 23.0 mmol/L (21-32); Chloride 113.0 mmol/L (98-107); Creatinine Clr Calc Pharmacy 61.4 ml/min; Glucose 138.0 mg/dl (70-99(Fasting)); Magnesium 1.9 mg/dl (1.7-2.4); Potassium 3.8 mmol/L (3.5-5.1); Sodium 142.0 mmol/L (136-145)
[2025-07-30 07:19] LABS: INR 3.5 (0.9-1.1); Prothrombin Time 34.8 Seconds (9.0-12.0)
[2025-07-30] MEDS: POTASSIUM CHLORIDE 10 MEQ TABCR PO SCH (09:26)
[2025-07-30] MEDS: ASPIRIN 81 MG ECTAB PO SCH (10:17)
[2025-07-30] MEDS: FERROUS SULFATE 325 MG TAB PO SCH (10:17)
[2025-07-30] MEDS: FAMOTIDINE 40 MG TABLET PO SCH (10:17)
[2025-07-30] MEDS: FUROSEMIDE 20 MG TAB PO SCH (10:17)
[2025-07-30] MEDS: ISOSORBIDE MONO EXTENDED REL 60 MG TABCR PO SCH (10:18)
[2025-07-30] MEDS: LANTUS PER UNIT CHARGE SC SCH ×2 (12:33→21:18)
--- NOTE | 2025-07-30 16:44 | Hospitalist Progress Note ---
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 HHS-> resolved Uncontrolled type 2 diabetes Hypophosphatemia Presenting with glucose over 900 Insulin pump and glucometer stopped working days ago VBG revealed pH 7.47 and pCO2 28 indicating respiratory alkalosis Initially placed on insulin drip-> now transitioned A1C 13.9% Glycemic pharmacy consulted for SSI Appreciate natural resources extension educator recs-> discussed via TT and recommends patient discuss with [facility] about switching to SQ insulin instead of pump, pt has appt on 08/14/2025 Continue IV fluids Replace phos and recheck labs at 1400 Remains medically stable and has been feeling a lot better since admission and the blood sugar seems to be under control Electrolytes are controlled too Discussed with the and the patient for possible discharge in a day or 2 on insulin and will need to have a follow-up appointment with financial aids officer Acute respiratory distress-> resolved COPD Placed on bipap by EMS due to severe respiratory distress CXR notes prominence of pulmonary vasculature but no consolidation Biofire negative Likely secondary to HHS, respiratory distress resolved with resolution of HHS Wean O2 as able-> baseline is O2 at night via CPAP and RA during day Continue inhalers and montelukast Does not have any COPD exacerbation and the patient is saturating normally on room air Complicated UTI s/p right ureteral stent CTAP unremarkable UA +leuk esterase, WBC, bacteria Urine culture prelim E Coli Continue ceftriaxone Urine culture is growing E. coli resistant to ampicillin, Augmentin and sulfa- Will continue ceftriaxone likely discharge on oral Keflex Elevated troponin Initial 31 with repeat 49 EKG with T wave inversions Likely demand ischemia secondary to HHS Trend troponin q6hr Sepsis Meets criteria with tachycardia, tachypnea, elevated lactate in setting of possible UTI Follow blood cultures Antibiotics as above Metabolic encephalopathy-> resolved Secondary to HHS Delirium precautions Chronic atrial fibrillation Rate controlled INR therapeutic at 2.5 Continue warfarin and metoprolol Hypertension Resume Imdur tomorrow HFpEF Monitor fluid status closely while on aggressive IVF Resume furosemide tomorrow Hyperlipidemia Continue statin GERD Continue famotidine Depression Continue Seroquel DVT Prophylaxis: on warfarin Code Status: FULL CODE PCP: Natalia Heller Disposition: PT/OT evals pending I spent a total of 37 minutes examining the patient, discussion about management plan and going through the investigations and also planning of care DR Nik Chinchilla Admission and Anticipated Discharge Date Admission Date: July 28, 2025 Subjective 07/30/2025 The patient was seen and examined in telemetry unit in presence of the She has been feeling much better and the blood sugar seems to be reasonably controlled Denies any significant symptoms Review of Systems Review of Systems: All systems reviewed and are unremarkable except as noted Physical Exam Physical Exam: On examination Lying in bed without any acute distress Remains hemodynamically stable, afebrile with a blood pressure of 154/80 Chestclear to auscultate bilaterally HeartS1-S2, regular Abdomenbenign, bowel sound present and nontender Extremitiesno edema CNSalert, awake and oriented x 3. No focal sensory or motor deficit appreciated Results & Data Results & Data Vital Signs (Past 12 Hours) Vital Signs Temp Pulse Pulse Resp BP Pulse Ox O2 Del Method 07/30/25 14:43 77 07/30/25 12:48 36.7 C 76 17 117/65 96 Room Air 07/30/25 11:44 77 153/79 H 07/30/25 09:00 65 07/30/25 09:00 Nasal Cannula, CPAP 07/30/25 08:33 36.3 C L 87 17 170/101 H 93 Room Air 07/30/25 07:50 90 15 98 O2 Flow Rate FiO2 07/30/25 14:43 07/30/25 12:48 07/30/25 11:44 07/30/25 09:00 07/30/25 09:00 2 07/30/25 08:33 07/30/25 07:50 30 Laboratory Results Short CBC 07/30/25 Range/Units 05:55 WBC 5.00 (4.8-10.8) K/ul Hgb 11.1 L (12.0-16.0) g/dL Hct 33.0 L (37.0-47.0) % Plt Count 103 L (130-400) K/uL [facility] 07/30/25 05:55 Sodium 142 Potassium 3.8 Chloride 113 H Carbon Dioxide 23 BUN 17 Creatinine 0.87 Glucose 138 H Calcium 8.1 L Medications Administered Current Inpatient Medications Acetaminophen (Acetaminophen 325 Mg Tab) 650 mg PO Q4H PRN PRN Reason: Pain or Fever Stop: 08/27/25 17:49 Albuterol (Albut/Ipratrop 3mg/0.5mg Neb 3 Ml Vial) 3 ml INH Q6H PRN PRN Reason: Wheezing Stop: 08/27/25 18:13 Albuterol (Albuterol Hfa 8 Gm Inhaler) 2 puffs INH Q6 PRN PRN Reason: Shortness Of Breath Stop: 08/27/25 17:49 Aspirin (Aspirin 81 Mg Ectab) 81 mg PO DAILY [facility] Stop: 08/29/25 08:59 Last Admin: 07/30/25 10:17 Dose: 81 mg Dextrose (Dextrose 50% 50 Ml Syringe) 25 - 50 ml IV UD PRN; Protocol PRN Reason: Hypoglycemia Protocol Stop: 08/27/25 13:33 Famotidine (Famotidine 40 Mg Tablet) 40 mg PO QAM [facility] Stop: 08/29/25 08:59 Last Admin: 07/30/25 10:17 Dose: 40 mg Ferrous Sulfate (Ferrous Sulfate 325 Mg Tab) 325 mg PO QAM [facility] Stop: 08/29/25 08:59 Last Admin: 07/30/25 10:17 Dose: 325 mg Fluticasone Furoate (Fluticasone Furoate 100mcg 14 Puffs/Inhaler) 1 puffs INH DAILY [facility] Stop: 08/28/25 08:59 Last Admin: 07/30/25 09:24 Dose: 1 puffs Folic Acid (Folic Acid 1 Mg Tab) 1 mg PO QAM [facility] Stop: 08/28/25 08:59 Last Admin: 07/30/25 09:25 Dose: 1 mg Furosemide (Furosemide 20 Mg Tab) 20 mg PO QAM [facility] Stop: 08/29/25 08:59 Last Admin: 07/30/25 10:17 Dose: 20 mg Glucagon (Glucagon For Inj 1 Mg Vial) 1 mg SQ UD PRN; Protocol PRN Reason: Hypoglycemia Protocol Stop: 08/27/25 13:33 Glucose (Glucose 40% Gel 15 Gm Tube) 15 - 30 gm PO UD PRN; Protocol PRN Reason: Hypoglycemia Protocol Stop: 08/27/25 13:33 Glucose (Glucose 10 Tab/Tube) 4 - 8 tab PO UD PRN; Protocol PRN Reason: Hypoglycemia Protocol Stop: 08/27/25 13:33 Ceftriaxone Sodium (Rocephin) 2,000 mg in 50 mls @ 100 mls/hr IV Q24H [facility] Stop: 08/03/25 13:59 Last Infusion: 07/30/25 15:49 Dose: Infused Insulin Aspart (Insulin Aspart Per Unit Charge) 0 units SC [facility] Stop: 08/28/25 11:29 Last Admin: 07/30/25 12:33 Dose: 26 units Insulin Glargine (Lantus Per Unit Charge) 80 units SC DAILY@1630 [facility] Stop: 08/29/25 10:59 Last Admin: 07/30/25 12:33 Dose: 80 units Insulin Glargine (Lantus Per Unit Charge) 0 units SC [facility]; Protocol Stop: 08/29/25 20:59 Isosorbide Mononitrate (Isosorbide [place] Extended Rel 60 Mg Tabcr) 60 mg PO [facility] Stop: 08/29/25 08:59 Last Admin: 07/30/25 10:18 Dose: 60 mg Lorazepam (Lorazepam 0.5 Mg Tab) 0.5 mg PO Q6 PRN PRN Reason: Anxiety Stop: 08/27/25 17:49 Metoprolol Succinate (Metoprolol Succ 25mg Ext Rel Tab) [facility] [place] Stop: 08/28/25 08:59 Last Admin: 07/30/25 09:25 Dose: 25 mg Miscellaneous (Carbohydrates For Hypoglycemia ) 15 - 30 gm PO UD PRN PRN Reason: Hypoglycemia Protocol Stop: 08/27/25 13:33 Miscellaneous Information (Pharmacy Glycemic Mgmt Consult) 1 each N/A UD PRN PRN Reason: Consult Stop: 08/27/25 13:58 Montelukast Sodium (Montelukast Sodium 10 Mg Tablet) 10 mg PO [facility] Stop: 08/28/25 20:59 Last Admin: 07/29/25 22:33 Dose: 10 mg Ondansetron HCl (Ondansetron Inj 2 Mg/Ml 2 Ml Vial) 4 mg IV Q6H PRN PRN Reason: Nausea Stop: 08/27/25 17:49 Polyethylene Glycol (Polyethylene (Miralax) 17 Gm Pack) 17 gm PO DAILY PRN PRN Reason: Constipation Stop: 08/27/25 17:49 Potassium Chloride (Potassium Chloride 10 Meq Tabcr) 10 meq PO QAM [facility] Stop: 08/29/25 08:59 Last Admin: 07/30/25 09:26 Dose: 10 meq Quetiapine Fumarate (Quetiapine Fumarate 25 Mg Tablet) 25 mg PO HS [facility] Stop: 08/27/25 20:59 Last Admin: 07/29/25 21:46 Dose: 25 mg Rosuvastatin Calcium (Rosuvastatin Calcium 20 Mg Tab) 20 mg PO QAM [facility] Stop: 08/28/25 08:59 Last Admin: 07/30/25 09:25 Dose: 20 mg Thiamine HCl (Thiamine Hcl 100 Mg Tab) 100 mg PO QAM [facility] Stop: 08/28/25 08:59 Last Admin: 07/30/25 09:25 Dose: 100 mg Umeclidinium/Vilanterol (Umeclidinium/Vilanterol 62.5/25mcg 7 Puffs/Inhaler) 1 puffs INH DAILY [facility] Stop: 08/28/25 08:59 Last Admin: 07/30/25 09:25 Dose: 1 puffs Warfarin Sodium (Warfarin Sod 5 Mg Tab) 5 mg PO QPM [facility] Stop: 08/27/25 20:59 Last Admin: 07/29/25 21:46 Dose: 5 mg (6) COPD (chronic obstructive pulmonary disease) COPD type: unspecified COPD Qualified Code(s): J44.9 - Chronic obstructive pulmonary disease, unspecified (7) HTN (hypertension) Hypertension type: unspecified Qualified Code(s): I10 - Essential (primary) hypertension (8) Coronary artery disease Coronary Disease-Associated Artery/Lesion type: unspecified vessel or lesion type [place] vs. transplanted heart: [place] heart Associated angina: unspecified whether angina present Qualified Code(s): I25.10 - Atherosclerotic heart disease of [place] coronary artery without angina pectoris
[2025-07-31] MEDS: ALBUT/IPRATROP 3MG/0.5MG NEB 3 ML VIAL INH PRN (08:56)
[2025-07-31 09:29] LABS: Hematocrit (blood only) 36.9 % (37.0-47.0); Hemoglobin 12.3 g/dL (12.0-16.0); Immature Granulocytes # (auto) 0.01 K/uL (0.01-0.20); Immature Granulocytes % (auto) 0.2 %; Mean Corpuscular Hemoglobin 29.9 pg (25.0-34.0); Mean Corpuscular Volume 89.6 fL (80.0-100.0); Platelet Count 126 K/uL (130-400); RDW Standard Deviation 47.8 fL (36.4-46.3); Red Blood Count 4.12 M/uL (4.20-5.40); White Blood Count 5.71 K/ul (4.8-10.8)
[2025-07-31 09:41] LABS: Anion Gap 7.0 (3-11); Blood Urea Nitrogen 18.0 mg/dl (6-23); Calcium 8.9 mg/dl (8.6-10.3); Carbon Dioxide 28.0 mmol/L (21-32); Chloride 107.0 mmol/L (98-107); Creatinine Clr Calc Pharmacy 53.2 ml/min; Glucose 209.0 mg/dl (70-99(Fasting)); Magnesium 2.0 mg/dl (1.7-2.4); Potassium 3.2 mmol/L (3.5-5.1); Sodium 142.0 mmol/L (136-145)
--- NOTE | 2025-07-31 14:00 | Hospitalist Progress Note ---
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 HHS-> resolved Uncontrolled type 2 diabetes Hypophosphatemia Presenting with glucose over 900 Insulin pump and glucometer stopped working days ago VBG revealed pH 7.47 and pCO2 28 indicating respiratory alkalosis Initially placed on insulin drip-> now transitioned A1C 13.9% Glycemic pharmacy consulted for SSI Appreciate clinical trial educator recs-> discussed via TT and recommends patient discuss with [facility] about switching to SQ insulin instead of pump, pt has appt on 08/14/2025 Continue IV fluids Replace phos and recheck labs at 1400 Remains medically stable and has been feeling a lot better since admission and the blood sugar seems to be under control Electrolytes are controlled too Discussed with the and the patient for possible discharge in a day or 2 on insulin and will need to have a follow-up appointment with market manager Her blood sugar is controlled with current subcu doses of insulin She has had PT and OT evaluation and recommended home but the patient and the wanted her to be in a assisted plant general manager is working on that Acute respiratory distress-> resolved COPD Placed on bipap by EMS due to severe respiratory distress CXR notes prominence of pulmonary vasculature but no consolidation Biofire negative Likely secondary to HHS, respiratory distress resolved with resolution of HHS Wean O2 as able-> baseline is O2 at night via CPAP and RA during day Continue inhalers and montelukast Does not have any COPD exacerbation and the patient is saturating normally on room air Complicated UTI s/p right ureteral stent CTAP unremarkable UA +leuk esterase, WBC, bacteria Urine culture prelim E Coli Continue ceftriaxone Urine culture is growing E. coli resistant to ampicillin, Augmentin and sulfa- Will continue ceftriaxone likely discharge on oral Keflex Denies any more urinary symptoms and should be discharged on Keflex to finish the course of antibiotic Elevated troponin Initial 31 with repeat 49 EKG with T wave inversions Likely demand ischemia secondary to HHS Trend troponin q6hr Sepsis Meets criteria with tachycardia, tachypnea, elevated lactate in setting of possible UTI Follow blood cultures Antibiotics as above Metabolic encephalopathy-> resolved Secondary to HHS Delirium precautions Chronic atrial fibrillation Rate controlled INR therapeutic at 2.5 Continue warfarin and metoprolol Heart rate remains controlled and the INR is 3.5 today Hypertension Resume Imdur tomorrow HFpEF Monitor fluid status closely while on aggressive IVF Resumed furosemide Hyperlipidemia Continue statin GERD Continue famotidine Depression Continue Seroquel DVT Prophylaxis: on warfarin Code Status: FULL CODE PCP: Natalia Heller Disposition: PT/OT zen -recommended home medical patient wants to go to rehab for short-term. I spent a total of 37 minutes examining the patient, discussion about management plan and going through the investigations and also planning of care DR Nik Chinchilla Admission and Anticipated Discharge Date Admission Date: July 28, 2025 Subjective 07/30/2025 The patient was seen and examined in telemetry unit in presence of the She has been feeling much better and the blood sugar seems to be reasonably controlled Denies any significant symptoms 07/31/2025 The patient was seen and examined in telemetry unit in presence of the She has been feeling much better with current subcu doses of insulin Denies any significant symptoms Wants to go to rehab even though PT cleared her to go home Review of Systems Review of Systems: All systems reviewed and are unremarkable except as noted Physical Exam Physical Exam: Lying in bed without any acute distress Constitutional: well developed, well nourished, + ill appearing and + obese Eyes: PERRL, conjunctivae normal, anicteric sclerae ENMT: external ear and nose normal, oropharynx normal Neck: trachea midline, no thyromegaly Respiratory: no respiratory distress Auscultation: lungs clear to auscultation bilaterally Cardiovascular: Rate/Rhythm: regular rate and regular rhythm; not tachycardic Heart Sounds: normal S1 and normal S2; no murmur Extremities: no edema Gastrointestinal (Abdomen): Inspection/Auscultation: + abdomen distended and normal bowel sounds Percussion/Palpation: abdomen soft; abdomen nontender Musculoskeletal: No acute arthritis involving any of the joint Neurologic: normal touch/pain/proprioception and moves all extremities; no focal motor deficits Lymphatic: no cervical or axillary lymphadenopathy Results & Data Results & Data Vital Signs (Past 12 Hours) Vital Signs Temp Pulse Pulse Resp BP Pulse Ox O2 Del Method 07/31/25 11:34 36.9 C 86 20 130/78 97 Room Air 07/31/25 10:06 Room Air 07/31/25 08:58 84 18 Room Air 07/31/25 07:52 36.6 C 94 H 16 174/75 H 96 Room Air 07/31/25 03:33 36.7 C 92 H 18 129/75 96 Room Air Laboratory Results 4 oh mated Short CBC 07/31/25 Range/Units 08:49 WBC 5.71 (4.8-10.8) K/ul Hgb 12.3 (12.0-16.0) g/dL Hct 36.9 L (37.0-47.0) % Plt Count 126 L (130-400) K/uL [facility] 07/31/25 08:49 Sodium 142 Potassium 3.2 L Chloride 107 Carbon Dioxide 28 BUN 18 Creatinine 1.01 Glucose 209 H Calcium 8.9 3.20 Medications Administered Current Inpatient Medications Acetaminophen (Acetaminophen 325 Mg Tab) 650 mg PO Q4H PRN PRN Reason: Pain or Fever Stop: 08/27/25 17:49 Albuterol (Albut/Ipratrop 3mg/0.5mg Neb 3 Ml Vial) 3 ml INH Q6H PRN PRN Reason: Wheezing Stop: 08/27/25 18:13 Last Admin: 07/31/25 08:56 Dose: 3 ml Albuterol (Albuterol Hfa 8 Gm Inhaler) 2 puffs INH Q6 PRN PRN Reason: Shortness Of Breath Stop: 08/27/25 17:49 Aspirin (Aspirin 81 Mg Ectab) 81 mg PO DAILY [facility] Stop: 08/29/25 08:59 Last Admin: 07/31/25 08:03 Dose: 81 mg Dextrose (Dextrose 50% 50 Ml Syringe) 25 - 50 ml IV UD PRN; Protocol PRN Reason: Hypoglycemia Protocol Stop: 08/27/25 13:33 Famotidine (Famotidine 40 Mg Tablet) 40 mg PO QAM [facility]QU[facility] Stop: 08/29/25 08:59 Last Admin: 07/31/25 08:02 Dose: 40 mg Ferrous Sulfate (Ferrous Sulfate 325 Mg Tab) 325 mg PO [facility] Stop: 08/29/25 08:59 Last Admin: 07/31/25 08:02 Dose: 325 mg Fluticasone Furoate (Fluticasone Furoate 100mcg 14 Puffs/Inhaler) 1 puffs INH DAILY [facility] Stop: 08/28/25 08:59 Last Admin: 07/31/25 08:04 Dose: 1 puffs Folic Acid (Folic Acid 1 Mg Tab) [facility] Stop: 08/28/25 08:59 Last Admin: 07/31/25 08:02 Dose: 1 mg Furosemide (Furosemide 20 Mg Tab) 20 mg PO [facility] Stop: 08/29/25 08:59 Last Admin: 07/31/25 08:01 Dose: 20 mg Glucagon (Glucagon For Inj 1 Mg Vial) 1 mg SQ UD PRN; Protocol PRN Reason: Hypoglycemia Protocol Stop: 08/27/25 13:33 Glucose (Glucose 40% Gel 15 Gm Tube) 15 - 30 gm PO UD PRN; Protocol PRN Reason: Hypoglycemia Protocol Stop: 08/27/25 13:33 Glucose (Glucose 10 Tab/Tube) 4 - 8 tab PO UD PRN; Protocol PRN Reason: Hypoglycemia Protocol Stop: 08/27/25 13:33 Ceftriaxone Sodium (Rocephin) 2,000 mg in 50 mls @ 100 mls/hr IV Q24H [facility] Stop: 08/03/25 13:59 Last Infusion: 07/31/25 13:40 Dose: Infused Insulin Aspart (Insulin Aspart Per Unit Charge) 0 units SC [facility] Stop: 08/28/25 11:29 Last Admin: 07/31/25 12:51 Dose: 23 units Insulin Glargine (Lantus Per Unit Charge) 80 units SC DAILY@1630 [facility] Stop: 08/29/25 10:59 Last Admin: 07/30/25 12:33 Dose: 80 units Insulin Glargine (Lantus Per Unit Charge) 0 units SC [facility]; Protocol Stop: 08/29/25 20:59 Last Admin: 07/30/25 21:18 Dose: Not Given Isosorbide Mononitrate (Isosorbide [place] Extended Rel 60 Mg Tabcr) 60 mg PO [facility] Stop: 08/29/25 08:59 Last Admin: 07/31/25 08:03 Dose: 60 mg Lorazepam (Lorazepam 0.5 Mg Tab) 0.5 mg PO Q6 PRN PRN Reason: Anxiety Stop: 08/27/25 17:49 Metoprolol Succinate (Metoprolol Succ 25mg Ext Rel Tab) [facility] Stop: 08/28/25 08:59 Last Admin: 07/31/25 08:02 Dose: 25 mg Miscellaneous (Carbohydrates For Hypoglycemia ) 15 - 30 gm PO UD PRN PRN Reason: Hypoglycemia Protocol Stop: 08/27/25 13:33 Miscellaneous Information (Pharmacy Glycemic Mgmt Consult) 1 each N/A UD PRN PRN Reason: Consult Stop: 08/27/25 13:58 Montelukast Sodium (Montelukast Sodium 10 Mg Tablet) 10 mg PO [facility] Stop: 08/28/25 20:59 Last Admin: 07/30/25 20:00 Dose: 10 mg Ondansetron HCl (Ondansetron Inj 2 Mg/Ml 2 Ml Vial) 4 mg IV Q6H PRN PRN Reason: Nausea Stop: 08/27/25 17:49 Polyethylene Glycol (Polyethylene (Miralax) 17 Gm Pack) 17 gm PO DAILY PRN PRN Reason: Constipation Stop: 08/27/25 17:49 Potassium Chloride (Potassium Chloride 10 Meq Tabcr) 10 meq PO [facility] Stop: 08/29/25 08:59 Last Admin: 07/31/25 09:10 Dose: 10 meq Quetiapine Fumarate (Quetiapine Fumarate 25 Mg Tablet) 25 mg PO [facility] Stop: 08/27/25 20:59 Last Admin: 07/30/25 20:01 Dose: 25 mg Rosuvastatin Calcium (Rosuvastatin Calcium 20 Mg Tab) 20 mg PO [facility] Stop: 08/28/25 08:59 Last Admin: 07/31/25 08:01 Dose: 20 mg Thiamine HCl (Thiamine Hcl 100 Mg Tab) 100 mg PO [facility] Stop: 08/28/25 08:59 Last Admin: 07/31/25 08:02 Dose: 100 mg Umeclidinium/Vilanterol (Umeclidinium/Vilanterol 62.5/25mcg 7 Puffs/Inhaler) 1 puffs INH DAILY [facility] Stop: 08/28/25 08:59 Last Admin: 07/31/25 08:04 Dose: 1 puffs Warfarin Sodium (Warfarin Sod 5 Mg Tab) 5 mg PO QPM [facility] Stop: 08/27/25 20:59 Last Admin: 07/30/25 20:01 Dose: Not Given Supplement rosuvastatin potassium hemoglobin today 6 7 potassium 2% potassium warfarin potassium today level diagnostic tests 3.2 potassium stable prescription sent (6) COPD (chronic obstructive pulmonary disease) COPD type: unspecified COPD Qualified Code(s): J44.9 - Chronic obstructive pulmonary disease, unspecified (7) HTN (hypertension) Hypertension type: unspecified Qualified Code(s): I10 - Essential (primary) hypertension (8) Coronary artery disease Coronary Disease-Associated Artery/Lesion type: unspecified vessel or lesion type [place] vs. transplanted heart: [place] heart Associated angina: unspecified whether angina present Qualified Code(s): I25.10 - Atherosclerotic heart disease of [place] coronary artery without angina pectoris
[2025-07-31] MEDS: POTASSIUM CHLORIDE CRTAB 20 MEQ TABCR PO STA (15:35)
[2025-08-01 09:58] LABS: INR 2.1 (0.9-1.1); Prothrombin Time 21.7 Seconds (9.0-12.0)
[2025-08-01 10:01] LABS: Anion Gap 7.0 (3-11); Blood Urea Nitrogen 22.0 mg/dl (6-23); Calcium 9.1 mg/dl (8.6-10.3); Carbon Dioxide 27.0 mmol/L (21-32); Chloride 108.0 mmol/L (98-107); Creatinine Clr Calc Pharmacy 48.4 ml/min; Glucose 201.0 mg/dl (70-99(Fasting)); Potassium 3.9 mmol/L (3.5-5.1); Sodium 142.0 mmol/L (136-145)
[2025-08-01] MEDS: LANTUS PER UNIT CHARGE SC ONE (12:58)
--- NOTE | 2025-08-01 13:05 | Pharmacy Report ---
Pharmacy Glycemic Short Note 2 - Date of Service August 01, 2025 - Glycemic Short BSG Results (Last 24 hours): 07/31/25 07/31/25 08/01/25 16:21 19:57 07:44 Glucose POC Glucose 251 H 219 H 173 H 08/01/25 08/01/25 08:56 11:04 Glucose 201 H POC Glucose 248 H OUTPATIENT ANTIDIABETIC REGIMEN: * NovoLog pump * Basal 7.2 units/hr 00-06, 8 units/hr 06-12, 8.9 units/hr 12-00 * Bolus 25 units with breakfast, 45 units with lunch, and 40 units with supper, CF 10 * metformin (Settings pulled from last admission) ASSESSMENT: 07/31/25: * Blood sugars have been elevated over past 72 hours * Receiving >150 units of insulin/day * Will tighten Novolog parameters today and continue increased basal * Awaiting placement 07/29/25: * 75 year old admitted with blood sugars >900 concerns for HHS and started on insulin infusion. Insulin pump/glucometer stopped working prior to admission. Labs improving overnight and provider okay to transition off insulin infusion. Given Lantus 50 units x 1 this morning. Blood sugars stable, plan to start novolog SSI with lunch time check. Initially NPO for CPAP treatment, however now off CPAP and provider planning on ordering diet with lunch. Patient known to glycemic service from other admissions. Typically requires around ~70-80 units of basal once daily. Will plan to add on scale for basal later today as unclear what PO intake will be. PLAN FOR INPATIENT GLYCEMIC CONTROL: * Hold outpatient oral diabetes medications * Basal insulin * Lantus 80 units SC x 1 this afternoon * Lantus 0-15-25 units SC HS * Likely further adjust basal to AM tomorrow * Bolus insulin * NovoLog per scale ACHS or Q6hrs while NPO * Goal Range: Low 110 mg/dL - High 140 mg/dL * Correction Factor: 10 mg/dL/unit * Nutritional / Prandial insulin per carb ratio of 1 unit per 2 grams CHO consumed
--- NOTE | 2025-08-01 14:01 | Hospitalist Progress Note ---
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 #HHS-> resolved Uncontrolled type 2 diabetes Hypophosphatemia -Secondary to malfunctioning home insulin pump -Resolved Plan -Continue sq insulin upon discharge -She will need to f/u with her software test engineer for a new insulin pump -Waiting on SNF placement Acute respiratory distress-> resolved COPD resolved Complicated UTI s/p right ureteral stent CTAP unremarkable UA +leuk esterase, WBC, bacteria Urine culture prelim E Coli Continue ceftriaxone Plan Finish 5 days of CTX tomorrow 08/02 Elevated troponin Initial 31 with repeat 49 EKG with T wave inversions Likely demand ischemia secondary to HHS Sepsis resolved Metabolic encephalopathy-> resolved Secondary to HHS Delirium precautions Chronic atrial fibrillation Rate controlled INR therapeutic at 2.5 Continue warfarin and metoprolol Heart rate remains controlled and the INR is 2.1 Hypertension Imdur and toprol HFpEF Monitor fluid status closely while on aggressive IVF Resumed furosemide Hyperlipidemia Continue statin GERD Continue famotidine Depression Continue Seroquel DVT Prophylaxis: on warfarin Code Status: FULL CODE PCP: Natalia Heller Disposition: PT/OT evals -recommended home medical patient wants to go to rehab for short-term. I spent a total of 41 minutes coordinating, documenting, and providing care for this patient excluding time spent in the performance of separately billed services. This included personally reviewing all current laboratories and imaging studies, medical reconciliation, outpatient chart review and discussion with specialists Admission and Anticipated Discharge Date Admission Date: July 28, 2025 Subjective feeling well today. Patient denies F/C, CP, palpitations, SOB, dyspnea, abd pain, N/V/D Physical Exam Physical Exam: Vitals and labs reviewed General: Well appearing, NAD HEENT: EOMI, PERRLA Neck: Supple Cardiac: RRR no rubs gallops or murmurs Lungs: CTA no rhonchi wheezing or rales Abd: S NT ND BS positive : Deffered MSK: Full ROM. No obvious deformities Ext: No Edema cyanosis Skin: Warm, Dry Neuro: AOx3 No focal deficits. Psych: Normal Mood Results & Data Results & Data Vital Signs (Past 12 Hours) Vital Signs Temp Pulse Pulse Resp BP Pulse Ox O2 Del Method 08/01/25 11:58 Room Air 08/01/25 10:53 36.5 C 89 18 137/81 93 Room Air 08/01/25 08:11 36.7 C 79 16 159/83 H 95 Room Air 08/01/25 07:00 68 08/01/25 02:45 36.9 C 89 18 114/61 90 Room Air Laboratory Results Abnormal lab results 07/31/25 07/31/25 08/01/25 Range/Units 16:21 19:57 07:44 PT (9.0-12.0) Seconds INR (0.9-1.1) Chloride (98-107) mmol/L Glucose (70-99(Fasting)) mg/dl POC Glucose 251 H 219 H 173 H (70-99) mg/dl 08/01/25 08/01/25 Range/Units 08:56 11:04 PT 21.7 H (9.0-12.0) Seconds INR 2.1 H (0.9-1.1) Chloride 108 H (98-107) mmol/L Glucose 201 H (70-99(Fasting)) mg/dl POC Glucose 248 H (70-99) mg/dl (6) COPD (chronic obstructive pulmonary disease) COPD type: unspecified COPD Qualified Code(s): J44.9 - Chronic obstructive pulmonary disease, unspecified (7) HTN (hypertension) Hypertension type: unspecified Qualified Code(s): I10 - Essential (primary) hypertension (8) Coronary artery disease Coronary Disease-Associated Artery/Lesion type: unspecified vessel or lesion type [place] vs. transplanted heart: [place] heart Associated angina: unspecified whether angina present Qualified Code(s): I25.10 - Atherosclerotic heart disease of [place] coronary artery without angina pectoris
[2025-08-01] MEDS: POLYETHYLENE (MIRALAX) 17 GM PACK PO PRN (19:50)
[2025-08-02] MEDS: POLYETHYLENE (MIRALAX) 17 GM PACK PO SCH (09:23)
--- NOTE | 2025-08-02 10:07 | Hospitalist Progress Note ---
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 #HHS-> resolved Uncontrolled type 2 diabetes Hypophosphatemia -Secondary to malfunctioning home insulin pump -Resolved Plan -Continue sq insulin upon discharge -She will need to f/u with her building maintenance worker for a new insulin pump -Waiting on SNF placement #Constipation -No BM the past few days -Passing gas and eating without issue. No abd pain -Low suspicion for SBO or ileus Plan -Increase miralax to BID -Give suppository today -If no BM by tomorrow, check x ray and give enema #Chronic atrial fibrillation Rate controlled Continue warfarin and metoprolol Heart rate remains controlled and the INR is 2.1 Plan -Continue coumadin 5mg. check INR in AM -Contiue metoprolol Acute respiratory distress-> resolved COPD resolved Complicated UTI s/p right ureteral stent CTAP unremarkable UA +leuk esterase, WBC, bacteria Urine culture prelim E Coli Continue ceftriaxone Plan Finish 5 days of CTX 08/02 Elevated troponin Initial 31 with repeat 49 EKG with T wave inversions Likely demand ischemia secondary to HHS Sepsis resolved Metabolic encephalopathy-> resolved Secondary to HHS Delirium precautions Hypertension Imdur and toprol HFpEF Monitor fluid status closely while on aggressive IVF Resumed furosemide Hyperlipidemia Continue statin GERD Continue famotidine Depression Continue Seroquel DVT Prophylaxis: on warfarin Code Status: FULL CODE PCP: Natalia Heller Disposition: PT/OT evals -recommended home medical patient wants to go to rehab for short-term. I spent a total of 46 minutes coordinating, documenting, and providing care for this patient excluding time spent in the performance of separately billed services. This included personally reviewing all current laboratories and i maging studies, medical reconciliation, outpatient chart review and discussion with specialists Admission and Anticipated Discharge Date Admission Date: July 28, 2025 Subjective feeling well today. Patient denies F/C, CP, palpitations, SOB, dyspnea, abd pain, N/V/D. called . no answer. Physical Exam Physical Exam: Vitals and labs reviewed General: Well appearing, NAD HEENT: EOMI, PERRLA Neck: Supple Cardiac: RRR systolic murmur Lungs: CTA no rhonchi wheezing or rales Abd: S NT ND BS positive : No [place] MSK: Full ROM. No obvious deformities Ext: No Edema cyanosis Skin: Warm, Dry Neuro: AOx3 No focal deficits. Psych: Normal Mood Results & Data Results & Data Vital Signs (Past 12 Hours) Vital Signs Temp Pulse Resp BP BP Pulse Ox O2 Del Method 08/02/25 09:48 Room Air 08/02/25 09:18 82 126/75 08/02/25 07:33 36.6 C 95 H 17 120/74 95 Room Air 08/02/25 04:20 36.6 C 91 H 20 116/72 95 Room Air 08/02/25 01:12 36.7 C 82 20 113/67 97 Room Air Laboratory Results Abnormal lab results 08/01/25 08/01/25 08/01/25 Range/Units 11:04 16:35 20:34 POC Glucose 248 H 179 H 173 H (70-99) mg/dl 08/02/25 Range/Units 08:09 POC Glucose 193 H (70-99) mg/dl (6) COPD (chronic obstructive pulmonary disease) COPD type: unspecified COPD Qualified Code(s): J44.9 - Chronic obstructive pulmonary disease, unspecified (7) HTN (hypertension) Hypertension type: unspecified Qualified Code(s): I10 - Essential (primary) hypertension (8) Coronary artery disease Coronary Disease-Associated Artery/Lesion type: unspecified vessel or lesion type [place] vs. transplanted heart: [place] heart Associated angina: unspecified whether angina present Qualified Code(s): I25.10 - Atherosclerotic heart disease of [place] coronary artery without angina pectoris
[2025-08-02] MEDS: LANTUS PER UNIT CHARGE SC SCH (13:16)
[2025-08-03 06:33] LABS: INR 2.3 (0.9-1.1); Prothrombin Time 23.0 Seconds (9.0-12.0)
--- NOTE | 2025-08-03 13:42 | Hospitalist Progress Note ---
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 #HHS-> resolved Uncontrolled type 2 diabetes Hypophosphatemia -Secondary to malfunctioning home insulin pump -Resolved Plan -Continue sq insulin upon discharge -She will need to f/u with her stopper setter for a new insulin pump -Waiting on SNF placement, likely tomorrow #Constipation -resolved with miralax. BM on 08/02 #Chronic atrial fibrillation Rate controlled Continue warfarin and metoprolol Heart rate remains controlled and the INR is 2.3 Plan -Continue coumadin 5mg. -Contiue metoprolol Acute respiratory distress-> resolved COPD resolved Complicated UTI s/p right ureteral stent CTAP unremarkable UA +leuk esterase, WBC, bacteria Urine culture prelim E Coli Plan Finish 5 days of CTX 08/02 Elevated troponin Initial 31 with repeat 49 EKG with T wave inversions Likely demand ischemia secondary to HHS Sepsis resolved Metabolic encephalopathy-> resolved Secondary to HHS Delirium precautions Hypertension Imdur and toprol HFpEF Monitor fluid status closely while on aggressive IVF Resumed furosemide Hyperlipidemia Continue statin GERD Continue famotidine Depression Continue Seroquel DVT Prophylaxis: on warfarin Code Status: FULL CODE PCP: Natalia Heller Disposition: PT/OT zen -recommended home medical patient wants to go to rehab for short-term. I spent a total of 39 minutes coordinating, documenting, and providing care for this patient excluding time spent in the performance of separately billed services. This included personally reviewing all current laboratories and imaging studies, medical reconciliation, outpatient chart review and discussion with specialists Admission and Anticipated Discharge Date Admission Date: July 28, 2025 Subjective feeling well today. Patient denies F/C, CP, palpitations, SOB, dyspnea, abd pain, N/V/D. called . no answer. Physical Exam Physical Exam: Vitals and labs reviewed General: Well appearing, NAD HEENT: EOMI, PERRLA Neck: Supple Cardiac: RRR systolic murmur Lungs: CTA no rhonchi wheezing or rales Abd: S NT ND BS positive : No ortega MSK: Full ROM. No obvious deformities Ext: No Edema cyanosis Skin: Warm, Dry Neuro: AOx3 No focal deficits. Psych: Normal Mood Results & Data Results & Data Vital Signs (Past 12 Hours) Vital Signs Temp Pulse Pulse Resp BP Pulse Ox O2 Del Method 08/03/25 11:55 36.7 C 86 18 99/62 L 94 Room Air 08/03/25 11:54 77 08/03/25 09:54 Room Air 08/03/25 07:15 36.7 C 86 19 125/66 95 Room Air 08/03/25 03:40 36.9 C 96 H 16 114/79 95 Room Air Laboratory Results Abnormal lab results 08/02/25 08/02/25 08/03/25 Range/Units 17:12 20:56 05:40 PT 23.0 H (9.0-12.0) Seconds INR 2.3 H (0.9-1.1) POC Glucose 173 H 157 H (70-99) mg/dl 08/03/25 08/03/25 Range/Units 08:18 12:00 PT (9.0-12.0) Seconds INR (0.9-1.1) POC Glucose 148 H 186 H (70-99) mg/dl (6) COPD (chronic obstructive pulmonary disease) COPD type: unspecified COPD Qualified Code(s): J44.9 - Chronic obstructive pulmonary disease, unspecified (7) HTN (hypertension) Hypertension type: unspecified Qualified Code(s): I10 - Essential (primary) hypertension (8) Coronary artery disease Coronary Disease-Associated Artery/Lesion type: unspecified vessel or lesion type [place] vs. transplanted heart: [place] heart Associated angina: unspecified whether angina present Qualified Code(s): I25.10 - Atherosclerotic heart disease of [place] coronary artery without angina pectoris
--- NOTE | 2025-08-03 14:47 | Pharmacy Report ---
Pharmacy Glycemic Short Note 2 - Date of Service August 03, 2025 - Glycemic Short BSG Results (Last 24 hours): 08/02/25 08/02/25 08/03/25 17:12 20:56 08:18 POC Glucose 173 H 157 H 148 H 08/03/25 12:00 POC Glucose 186 H OUTPATIENT ANTIDIABETIC REGIMEN: * NovoLog pump * Basal 7.2 units/hr 00-06, 8 units/hr 06-12, 8.9 units/hr 12-00 * Bolus 25 units with breakfast, 45 units with lunch, and 40 units with supper, CF 10 * metformin (Settings pulled from last admission) ASSESSMENT: 08/03/25: * BSGs [phone] mg/dL yesterday- basal was increased in AM to 100 units with improved fasting this morning. Did not require additional at HS per scale. Will continue with current basal (fasting 148 mg/dL today). * Continue current novolog as prandial BSGs acceptable 07/31/25: * Blood sugars have been elevated over past 72 hours * Receiving >150 units of insulin/day * Will tighten Novolog parameters today and continue increased basal * Awaiting placement 07/29/25: * 75 year old admitted with blood sugars >900 concerns for HHS and started on insulin infusion. Insulin pump/glucometer stopped working prior to admission. Labs improving overnight and provider okay to transition off insulin infusion. Given Lantus 50 units x 1 this morning. Blood sugars stable, plan to start novolog SSI with lunch time check. Initially NPO for CPAP treatment, however now off CPAP and provider planning on ordering diet with lunch. Patient known to glycemic service from other admissions. Typically requires around ~70-80 units of basal once daily. Will plan to add on scale for basal later today as unclear what PO intake will be. PLAN FOR INPATIENT GLYCEMIC CONTROL: * Hold outpatient oral diabetes medications * Basal insulin * Lantus 100 units @ 1130 * Bolus insulin * NovoLog per scale ACHS or Q6hrs while NPO * Goal Range: Low 110 mg/dL - High 140 mg/dL * Correction Factor: 10 mg/dL/unit * Nutritional / Prandial insulin per carb ratio of 1 unit per 2 grams CHO consumed
[2025-08-04 07:20] VITALS: RESP 19
[2025-08-04 11:57] VITALS: PULSE 79; TEMP 98.2; O2SAT 96
--- NOTE | 2025-08-04 12:36 | Discharge Summary ---
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 Her insulin pump malfunctioned at home and she was not aware. HHS resolved and she was transitioned to sq insulin. Diabetic pharmacist was consulted. BG levels relatively stable. She was also treated for a complicated UTI. SHe finished her abx regimen on 08/02. Plan was for SNF but insurance declined. P2P done and still declined. She was personally informed of this this afternoon. Patient feels well today and wishes to go home. vitals and labs are stalbe for discharge home. D/w glycemic pharmacist, will send her on lantus 50 BID + novolog 30 TID as her insulin pump is not working. She was informed to call her business relations manager ALINE to inform them of this issue. #HHS-> resolved Uncontrolled type 2 diabetes Hypophosphatemia -Secondary to malfunctioning home insulin pump -Resolved Plan -Continue sq insulin upon discharge -She will need to f/u with her business relations manager for a new insulin pump -Waiting on SNF placement, likely tomorrow #Constipation -resolved with miralax. BM on 08/02 #Chronic atrial fibrillation Rate controlled Continue warfarin and metoprolol Heart rate remains controlled and the INR is 2.3 Plan -Continue coumadin 5mg. -Contiue metoprolol Acute respiratory distress-> resolved COPD resolved Complicated UTI s/p right ureteral stent CTAP unremarkable UA +leuk esterase, WBC, bacteria Urine culture prelim E Coli Plan Finish 5 days of CTX 08/02 Elevated troponin Initial 31 with repeat 49 EKG with T wave inversions Likely demand ischemia secondary to HHS Sepsis resolved Metabolic encephalopathy-> resolved Secondary to HHS Delirium precautions Hypertension Imdur and toprol HFpEF Monitor fluid status closely while on aggressive IVF Resumed furosemide Hyperlipidemia Continue statin GERD Continue famotidine Depression Continue Seroquel DVT Prophylaxis: on warfarin Code Status: FULL CODE PCP: Natalia Heller Disposition: PT/OT evals -recommended home medical patient wants to go to rehab for short-term. I spent a total of 65 minutes coordinating, documenting, and providing care for this patient excluding time spent in the performance of separately billed services. This included personally reviewing all current laboratories and imaging studies, medical reconciliation, outpatient chart review and discussion with specialists Notes For Next Care Provider Medication Changes From Visit lantus and novlog until insulin pump is replaced/fixed by endocrinology Admission HPI Per Admitting Provider 75 yo female with pmhx of COPD, pulmonary hypertension, cirrhosis, hx of Torsades de pointes, GERD, CAD, osteoporosis, HFpEF, H/O DVT (x2 RLE in on Coumadin), H/O Breast cancer who presents for SOB at home for past few days. Had admission in 06/2025 for sepsis 2/2 kidney stone. In the ED, found to have glucose over 900, insulin drip and hydration started, ceftriaxone given for UTI, admitted to medicine for further workup. Patient seen and examined at bedside. present. Patient on CPAP and short of breath not really able to give much history. Per patient has been getting steadily more short of breath for the past few days. She has been been spending most of her time in a recliner and cannot lay flat. Poor appetite. Denies chest pain, nausea, vomiting, diarrhea. Does have a bit of burning with urination. Has been producing significant amounts of [place] mucus over the past few days. No tobacco use, no alcohol use, no drug use, full code. Updated Medication List Medication Instructions Recorded Confirmed Type warfarin 5 mg tablet 5 mg PO QPM 01/12/20 07/29/25 History cyanocobalamin (vitamin B-12) 1,000 mcg sublingual QAM 09/21/22 07/29/25 History 1,000 mcg sublingual tablet cholecalciferol (vitamin D3) 25 1,000 unit PO QAM #30 caps 10/29/24 07/29/25 Rx mcg (1,000 unit) capsule fluticasone propionate 50 2 spray intranasal QAM #1 mL 10/29/24 07/29/25 Rx mcg/actuation nasal spray,suspension (Flonase Allergy Relief) isosorbide mononitrate 60 mg 60 mg PO QAM #30 tabs 10/29/24 07/29/25 Rx tablet,extended release 24 hr multivitamin (Daily-Moiz tablet) 1 tab PO QAM #30 tabs 10/29/24 07/29/25 Rx rosuvastatin 20 mg tablet 20 mg PO QAM #30 tabs 10/29/24 07/29/25 Rx ascorbic acid (vitamin C) 1,000 mg 1,000 mg PO QAM 12/10/24 07/29/25 History tablet (Vitamin C) ferrous sulfate 325 mg (65 mg 325 mg PO QAM 12/10/24 07/29/25 History iron) tablet insulin aspart U-100 100 unit/mL See Rx Instructions .Route .COMPLEX 12/10/24 07/29/25 History subcutaneous solution (Novolog U-100 Insulin aspart) metformin 1,000 mg tablet 1,000 mg PO BID 12/10/24 07/29/25 History albuterol sulfate 0.63 mg/3 mL 0.63 mg continuous nebulization Q6 06/22/25 07/29/25 History solution for nebulization PRN Wheezing albuterol sulfate 90 mcg/actuation 2 puff inhalation Q6 PRN Shortness 06/22/25 07/29/25 History aerosol inhaler (Ventolin HFA) Of Breath famotidine 40 mg tablet 40 mg PO QAM 06/22/25 07/29/25 History fluticasone fur. 100 mcg-umeclid 1 inh inhalation QAM 06/22/25 07/29/25 History 62.5 mcg-vilant 25 mcg inhalat.powder (Trelegy Ellipta) lorazepam 0.5 mg tablet 0.5 mg PO Q6 PRN Anxiety 06/22/25 07/29/25 History montelukast 10 mg tablet 10 mg PO HS 06/22/25 07/29/25 History nitroglycerin 0.3 mg sublingual 0.3 mg sublingual .EVERY 5 MINUTES 06/22/25 07/29/25 History tablet PRN Chest Pain potassium chloride 10 mEq 10 meq PO QAM 06/22/25 07/29/25 History capsule,extended release quetiapine 25 mg tablet 25 mg PO HS 06/22/25 07/29/25 History metoprolol succinate 25 mg 25 mg PO QAM #30 tabs 06/25/25 07/29/25 Rx tablet,extended release 24 hr furosemide 20 mg tablet 0 mg PO QAM 07/28/25 07/29/25 History aspirin 81 mg tablet,delayed 81 mg PO DAILY 07/29/25 07/29/25 History release blood sugar diagnostic #100 ea 08/04/25 Rx blood-glucose meter #1 ea 08/04/25 Rx insulin aspart U-100 100 unit/mL 30 unit (0.3 mL) subcut .tidac #15 08/04/25 Rx (3 mL) subcutaneous pen (Novolog mL FlexPen U-100 Insulin aspart) insulin glargine 100 unit/mL (3 50 unit (0.5 mL) subcut BID #15 mL 08/04/25 Rx mL) subcutaneous pen (Lantus Solostar U-100 Insulin) lancets 31 gauge (Comfort Touch #100 ea 08/04/25 Rx Ultra Thin Lancets) pen needle, diabetic 31 gauge x #100 ea 08/04/25 Rx 5/16" Hospital Stay Data Consultations 07/28/25 13:36 ED Decision to Admit Stat Diagnostic Imagining Performed 07/28/25 14:40 CT abd pelvis wo con Urgent Pending Results Patient Have Any Pending Studies at Discharge: No Discharge Instructions Given to Patient (Per Discharging Provider) Please follow up with your business relations manager regarding your broken insulin pump. please belt picker and use the new insulin which was sent to your pharmacy today. If any issues, please call your PCP or business relations manager. Total Time Total Time Spent Total Time Spent (In Minutes): 60
[2025-08-04 13:13] VITALS: BP 148/68
== END 2025-08-04 18:30 | disposition home health service (06) | DRG 871 ==
LOC: ED 12:16 → 4W 17:26 → SUATTDRO 17:48